=== PATIENT | female | born 1980 | race Hispanic/Latino ===

== ENCOUNTER 2018-01-20 17:30 | Emergency (ER) | payer BC, SELFPAY ==
--- OUTSIDE RECORDS SUMMARY | 2018-01-20 17:33 | XMS REPORT | Clinical Summary ---
:1980 Author Organization [facility] Address [address] [place] [address] Care Team Providers Name Role Phone Amanda Gonzalez MD Primary Care Provider Allergies Active Allergy Reactions Severity Noted Date Comments Adhesive Itching 04/30/2016 Skin turns red Adhesive Tape-Silicones Itching 01/23/2016 Skin turns red Cephalexin Itching 04/30/2016 Ciprofloxacin 01/22/2016 Tachycardia Duloxetine Hcl 05/14/2011 Serotonin syndrome Levofloxacin Palpitations High 01/22/2016 Tachycardia Tapentadol Itching 01/14/2015 Skin turns red Tolmetin Swelling 04/30/2016 Face and tongue Current Medications Prescription Sig. Disp. Refills Start End Status Date Date buPROPion XL Take 300 mg by Active (WELLBUTRIN XL) 300 mouth daily. MG 24 hr tablet escitalopram Take 20 mg by 0 Active (LEXAPRO) 20 MG mouth daily. 6 tablet L. RHAMNOSUS Take 1 tablet by Active GG/INULIN mouth daily. (CULTURELLE PROBIOTICS ORAL) traZODone (DESYREL) Take 100 mg by Active 100 MG tablet mouth 2 (two) times a day. mesalamine (LIALDA) Take 1,200 mg by Active 1.2 gram EC tablet mouth 4 (four) times a day. norethindrone-e.est Take 1 tablet by Active radiol-iron mouth daily. (LOESTRIN 24 FE) 1 mg-20 mcg (24)/75 mg (4) per tablet clonAZEPAM 0 Active (KlonoPIN) 0.5 MG 6 tablet mometasone 2 sprays into each 17 g 3 Active (NASONEX) 50 nostril daily. 7 mcg/actuation nasal spray albuterol (PROAIR Inhale 1-2 puffs 18 g 3 Active HFA,PROVENTIL every 6 (six) 7 HFA,VENTOLIN HFA) hours as needed 90 mcg/actuation for shortness of inhaler breath. gabapentin Take 1 tablet (600 90 tablet 11 Active (NEURONTIN) 600 mg mg total) by mouth 7 018 tabletIndications: 3 (three) times a Inflammatory day. polyarthritis, Enteropathic arthritis, Chronic midline low back pain without sciatica, Cervical radiculopathy, Encounter for monitoring azathioprine therapy, Ulcerative colitis with complication, unspecified location, Neuropathy, Vitamin D insufficiency, Weakness ADVAIR DISKUS INHALE ONE PUFF BY 60 each 0 Active 500-50 mcg/dose MOUTH TWICE A DAY 7 DISKUS cetirizine (ZyrTEC) TAKE ONE TABLET BY 30 tablet 0 Active 10 MG tablet MOUTH DAILY 8 hydrOXYzine TAKE ONE TABLET BY 30 tablet 0 Active (ATARAX) 25 MG MOUTH DAILY 8 tablet SIMPONI 50 mg/0.5 INJECT 1 PEN (50 1 Syringe 2 Active mL pen MG) SUBCUTANEOUSLY 8 injectorIndications EVERY 28 DAYS. : Inflammatory polyarthropathy, Enteropathic arthritis, Moderate chronic ulcerative colitis with complication, Acute bilateral low back pain with sciatica, sciatica laterality unspecified, Chronic low back pain with sciatica, sciatica laterality unspecified, unspecified back pain laterality baclofen (LIORESAL) TAKE 1 TABLET BY 90 tablet 0 Active 20 MG tablet MOUTH TWICE DAILY 8 cetirizine (ZyrTEC) Take 10 mg by Discontinued 10 MG tablet mouth daily. 017 dexlansoprazole Take 60 mg by Discontinued (DEXILANT) 60 mg mouth daily. [address] 1 patch on Discontinued (LIDODERM) 5 % the skin daily. 017 Remove & Discard patch within 12 hours or as directed by ondansetron 1 Discontinued (ZOFRAN) 8 MG 6 017 tablet hydrOXYzine 0 Discontinued (ATARAX) 25 MG 6 017 tablet dicyclomine 0 Discontinued (BENTYL) 10 MG 6 017 capsule azelastine 0.15 % 5 Discontinued (205.5 mcg) 6 017 spray,non-aerosol albuterol (ACCUNEB) Take 3 mL (0.63 mg 75 mL 12 0.63 mg/3 mL total) by 7 018 nebulizer solution nebulization every 6 (six) hours as needed for wheezing. fluticasone-salmete Inhale 1 puff 2 14 each 3 Discontinued rol (ADVAIR DISKUS) (two) times a day. 7 017 500-50 mcg/dose DISKUS gabapentin Take 2 capsules 60 capsule 0 Discontinued (NEURONTIN) 300 mg (600 mg total) by 7 017 capsuleIndications: mouth nightly. Ulcerative colitis with complication, unspecified location, Vitamin D insufficiency, Weakness, Encounter for monitoring azathioprine therapy, Inflammatory polyarthritis, Fibromyalgia baclofen (LIORESAL) Take 1 tablet (20 90 tablet 0 20 MG tablet mg total) by mouth 7 017 3 (three) times a day for 30 days. azaTHIOprine Take 3 tablets 90 tablet 0 Discontinued (IMURAN) 50 mg (150 mg total) by 7 017 tablet mouth daily for 30 days. predniSONE Take 1-2 tablets 60 tablet 0 (DELTASONE) 5 mg (5-10 mg total) by 7 017 tablet mouth daily as needed (joint pain) for up to 30 days. gabapentin TAKE TWO CAPSULES 60 capsule 0 Discontinued (NEURONTIN) 300 mg BY MOUTH EVERY 7 017 capsuleIndications: NIGHTLY Ulcerative colitis with complication, unspecified location, Vitamin D insufficiency, Weakness, Encounter for monitoring azathioprine therapy, Inflammatory polyarthritis, Fibromyalgia azaTHIOprine TAKE THREE TABLETS 90 tablet 0 (IMURAN) 50 mg BY MOUTH DAILY 7 017 tablet predniSONE TAKE ONE TO TWO 60 tablet 0 (DELTASONE) 5 mg TABLETS BY MOUTH 7 017 tablet EVERY DAY NEEDED FOR JOINT PAIN FOR UP TO 30 DAYS cetirizine (ZyrTEC) TAKE ONE TABLET BY 30 tablet 0 Discontinued 10 MG tablet MOUTH DAILY 017 ADVAIR DISKUS INHALE ONE PUFF BY 60 each 0 Discontinued 500-50 mcg/dose MOUTH TWICE A DAY DISKUS azaTHIOprine TAKE THREE TABLETS 30 tablet 0 Discontinued (IMURAN) 50 mg BY MOUTH DAILY 7 tablet gabapentin TAKE TWO CAPSULES 60 capsule 0 Discontinued (NEURONTIN) 300 mg BY MOUTH EVERY capsuleIndications: NIGHTLY Ulcerative colitis with complication, unspecified location, Vitamin D insufficiency, Weakness, Encounter for monitoring azathioprine therapy, Inflammatory polyarthritis, Fibromyalgia azaTHIOprine TAKE THREE TABLETS 90 tablet 0 Discontinued (IMURAN) 50 mg BY MOUTH DAILY tablet lidocaine Place 2 patches on 60 patch 0 Discontinued (LIDODERM) 5 % the skin daily for 30 days. Remove & Discard patch within 12 hours or as directed by gabapentin TAKE TWO CAPSULES 60 capsule 0 Discontinued (NEURONTIN) 300 mg BY MOUTH EVERY capsuleIndications: NIGHTLY Ulcerative colitis with complication, unspecified location, Vitamin D insufficiency, Weakness, Encounter for monitoring azathioprine therapy, Inflammatory polyarthritis, Fibromyalgia lidocaine 4 % Apply 1 patch 60 patch 2 Discontinued adhesive topically 2 (two) 017 patch,medicatedIndi times a day for 90 cations: days. Inflammatory polyarthritis, Enteropathic arthritis, Chronic midline low back pain without sciatica, Cervical radiculopathy, Encounter for monitoring azathioprine therapy, Ulcerative colitis with complication, unspecified location, Neuropathy, Vitamin D insufficiency, Weakness azaTHIOprine Take 3 tablets 90 tablet 2 Discontinued (IMURAN) 50 mg (150 mg total) by tabletIndications: mouth once daily Inflammatory for 30 days. polyarthritis, Enteropathic arthritis, Chronic midline low back pain without sciatica, Cervical radiculopathy, Encounter for monitoring azathioprine therapy, Ulcerative colitis with complication, unspecified location, Neuropathy, Vitamin D insufficiency, Weakness gabapentin Take 1 tablet (600 90 tablet 11 Discontinued (NEURONTIN) 600 mg mg total) by mouth 7 017 tabletIndications: 3 (three) times a Inflammatory day. polyarthritis, Enteropathic arthritis, Chronic midline low back pain without sciatica, Cervical radiculopathy, Encounter for monitoring azathioprine therapy, Ulcerative colitis with complication, unspecified location, Neuropathy, Vitamin D insufficiency, Weakness cycloSPORINE Administer 1 drop 0.4 mL 2 Discontinued (RESTASIS) 0.05 % to both eyes 2 7 017 ophthalmic (two) times a day emulsionIndications for 90 days. : Inflammatory polyarthritis, Enteropathic arthritis, Chronic midline low back pain without sciatica, Cervical radiculopathy, Encounter for monitoring azathioprine therapy, Ulcerative colitis with complication, unspecified location, Neuropathy, Vitamin D insufficiency, Weakness azaTHIOprine Take 3 tablets 90 tablet 2 (IMURAN) 50 mg (150 mg total) by 7 017 tabletIndications: mouth once daily Inflammatory for 30 days. polyarthritis, Enteropathic arthritis, Chronic midline low back pain without sciatica, Cervical radiculopathy, Encounter for monitoring azathioprine therapy, Ulcerative colitis with complication, unspecified location, Neuropathy, Vitamin D insufficiency, Weakness cycloSPORINE Administer 1 drop 0.4 mL 2 (RESTASIS) 0.05 % to both eyes 2 7 018 ophthalmic (two) times a day emulsionIndications for 90 days. : Inflammatory polyarthritis, Enteropathic arthritis, Chronic midline low back pain without sciatica, Cervical radiculopathy, Encounter for monitoring azathioprine therapy, Ulcerative colitis with complication, unspecified location, Neuropathy, Vitamin D insufficiency, Weakness lidocaine 4 % Apply 1 patch 60 patch 2 adhesive topically 2 (two) 7 018 patch,medicatedIndi times a day for 90 cations: days. Inflammatory polyarthritis, Enteropathic arthritis, Chronic midline low back pain without sciatica, Cervical radiculopathy, Encounter for monitoring azathioprine therapy, Ulcerative colitis with complication, unspecified location, Neuropathy, Vitamin D insufficiency, Weakness baclofen (LIORESAL) TAKE ONE TABLET BY 90 tablet 0 Discontinued 20 MG tablet MOUTH TWICE A DAY 7 018 golimumab (SIMPONI) Inject 50 mg under 0.5 mL 4 Discontinued 50 mg/0.5 mL pen the skin every 28 7 018 injectorIndications days. : Inflammatory polyarthropathy, Enteropathic arthritis, Moderate chronic ulcerative colitis with complication, Acute bilateral low back pain with sciatica, sciatica laterality unspecified, Chronic low back pain with sciatica, sciatica laterality unspecified, unspecified back pain laterality baclofen (LIORESAL) Take 1 tablet (20 90 tablet 0 20 MG tablet mg total) by mouth 7 017 3 (three) times a day for 30 days. predniSONE Take 1 tablet (10 90 tablet 0 (DELTASONE) 10 mg mg total) by mouth 7 017 tabletIndications: take as directed Inflammatory (4 tabs x 2 days, polyarthritis 3 tabs x 3 days, 2 tabs for 7days, 1 tab x 7days) for up to 19 days. hydrOXYzine Take 1 tablet (25 30 tablet 0 Discontinued (ATARAX) 25 MG mg total) by mouth 7 018 tablet daily. cetirizine (ZyrTEC) Take 1 tablet (10 30 tablet 0 Discontinued 10 MG tablet mg total) by mouth 7 018 once daily. predniSONE Take 1-1.5 tablets 45 tablet 0 Discontinued (DELTASONE) 10 mg (10-15 mg total) 7 018 tablet by mouth daily for 30 days. cetirizine (ZyrTEC) Take 1 tablet (10 30 tablet 0 Discontinued 10 MG tablet mg total) by mouth 8 018 once daily. hydrOXYzine Take 1 tablet (25 30 tablet 0 Discontinued (ATARAX) 25 MG mg total) by mouth 8 018 tablet daily. predniSONE TAKE 1 TO 1.5 45 tablet 0 Discontinued (DELTASONE) 10 mg TABLETS BY MOUTH 8 018 tablet DAILY predniSONE TAKE 1 TO 1.5 45 tablet 0 (DELTASONE) 10 mg TABLETS BY MOUTH 8 018 tablet DAILY baclofen (LIORESAL) TAKE ONE TABLET BY 90 tablet 0 Discontinued 20 MG tablet MOUTH TWICE A DAY 8 018 Hospital, Clinic, or Other Ordered Dose Route Frequency Start Date End Date Status Facility Administered Medication methylPREDNISolone acetate 80 mg IM once 06/11/2017 06/11/2017 Ended (DEPO-MEDROL) injection 80 mgIndications: Polyarthritis methylPREDNISolone acetate 80 mg IM once 07/30/2017 07/29/2017 Ended (DEPO-MEDROL) injection 80 mgIndications: Inflammatory polyarthropathy 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 Neuropathy 04/22/2017 RILEY (obstructive sleep apnea) 04/01/2017 Asthma dependent on inhaled steroids 04/01/2017 Chronic obstructive asthma with acute exacerbation 10/01/2016 Cough 10/01/2016 Allergic rhinitis due to pollen 10/01/2016 Inflammatory polyarthritis 08/30/2016 Fibromyalgia 08/30/2016 Encounter for monitoring azathioprine therapy 06/07/2016 Vitamin D insufficiency 05/01/2016 Myalgia 05/01/2016 Chronic midline low back pain without sciatica 05/01/2016 Ulcerative colitis with complication 04/28/2016 History of endometriosis 04/28/2016 IBS (irritable bowel syndrome) 04/28/2016 Abdominal pain 04/28/2016 Weakness 04/28/2016 Anxiety 04/28/2016 Gastroparesis 04/17/2016 Tendonitis of elbow, right 03/29/2016 Cervical radiculopathy 03/29/2016 Gastroesophageal reflux disease without esophagitis 02/22/2016 Intractable vomiting with nausea 01/22/2016 Sprain of right knee/leg 01/03/2016 Encounters Date Type Specialty Care Team Description 12/30/2017 Telephone Internal Medicine Amanda Gonzalez MD 10/21/2017 Orders Only Rheumatology Monica, Encounter for therapeutic drug level monitoring (Primary Dx); LOVE Sy Inflammatory polyarthropathy; Moderate chronic ulcerative colitis with complication; Weakness; Vitamin D insufficiency; Encounter for long-term (current) use of high-risk medication 10/16/2017 Telephone Pulmonology Odessa Lewis 10/02/2017 Refill Rheumatology Mary Mtz MD 09/30/2017 Refill Rheumatology Mary Mtz, [place] polyarthropathy; Enteropathic arthritis; Moderate chronic ulcerative colitis with complication; Acute bilateral low back pain with sciatica, sciatica laterality unspecified; Chronic low back pain with sciatica, sciatica laterality unspecified, unspecified back pain laterality 09/26/2017 Refill Rheumatology Mary Mtz MD 09/24/2017 Refill Rheumatology Mary Mtz MD 09/11/2017 Telephone Sleep Medicine Odessa Lewis 09/11/2017 Orders Only Pulmonology Oscar RILEY (obstructive sleep [place], [place] apnea) (Primary Dx) 08/14/2017 Refill Rheumatology Mary Mtz MD 08/14/2017 Refill Pulmonology Annabella Liu MD 08/13/2017 Refill Rheumatology Mary Mtz MD 07/29/2017 Clinical Support Rheumatology Mary Mtz MD 07/29/2017 Orders Only Rheumatology Awais Murguia MA polyarthropathy (Primary Dx) 07/20/2017 Refill Rheumatology Mary Mtz MD 07/19/2017 Refill Rheumatology Mary Mtz MD 07/01/2017 Orders Only Pulmonology Calista Yeung MA 06/11/2017 Clinical Support Rheumatology Amanda Gonzalez MD 06/11/2017 Orders Only Rheumatology Jolynn, Polyarthritis (Primary [place], [place] Dx) 06/11/2017 Orders Only Rheumatology Mary Mtz, Ulcerative colitis with complication, unspecified location (Primary Dx); Inflammatory polyarthritis 06/11/2017 Telephone Endocrinology Susana Hoang MA 06/11/2017 Telephone Internal Medicine Cherelle Bunn RN 05/21/2017 Telephone Internal Medicine Amanda Gonzalez MD 05/13/2017 Refill Rheumatology Mary Mtz MD 05/11/2017 Orders Only Rheumatology Mary Mtz Inflammatory MD polyarthritis (Primary Dx) 05/08/2017 Telephone Internal Medicine Amanda Gonzalez MD 05/03/2017 Orders Only Rheumatology Mary Mtz, Ulcerative colitis with complication, unspecified location; Vitamin D insufficiency; Weakness; Encounter for monitoring azathioprine therapy; Inflammatory polyarthritis; Fibromyalgia 05/01/2017 Refill Rheumatology Kerrie Anderson MA 05/01/2017 Refill Rheumatology Monica, Inflammatory polyarthropathy ( Primary Dx); LOVE Sy Enteropathic arthritis; Moderate chronic ulcerative colitis with complication; Acute bilateral low back pain with sciatica, sciatica laterality unspecified; Chronic low back pain with sciatica, sciatica laterality unspecified, unspecified back pain laterality 04/30/2017 Clinical Support Sleep Medicine Asked, No Pcp RILEY (obstructive sleep apnea) 04/30/2017 Refill Rheumatology Mary Mtz Inflammatory polyarthritis; Enteropathic arthritis; Chronic midline low back pain without sciatica; Cervical radiculopathy; Encounter for monitoring azathioprine therapy; Ulcerative colitis with complication, unspecified location; Neuropathy; Vitamin D insufficiency; Weakness 04/30/2017 Refill Rheumatology Mary Mtz MD 04/25/2017 Refill Rheumatology Mary Mtz MD 04/24/2017 Clinical Support Sleep Medicine RILEY (obstructive sleep apnea) 04/24/2017 Refill Pulmonology Annabella Liu MD 04/23/2017 Refill Rheumatology Monica Inflammatory polyarthritis; LOVE Sy Enteropathic arthritis; Chronic midline low back pain without sciatica; Cervical radiculopathy; Encounter for monitoring azathioprine therapy; Ulcerative colitis with complication, unspecified location; Neuropathy; Vitamin D insufficiency; Weakness 04/23/2017 Orders Only Rheumatology Kerrie Anderson MA 04/22/2017 Office Visit Rheumatology Mary Mtz, Inflammatory polyarthritis (Primary Dx); Enteropathic arthritis; Myalgia; Chronic midline low back pain without sciatica; Cervical radiculopathy; Encounter for monitoring azathioprine therapy; Fibromyalgia; Ulcerative colitis with complication, unspecified location; Neuropathy; Vitamin D insufficiency; Weakness 04/15/2017 Refill Rheumatology Mary Mtz Ulcerative colitis with complication, unspecified location; Vitamin D insufficiency; Weakness; Encounter for monitoring azathioprine therapy; Inflammatory polyarthritis; Fibromyalgia 04/04/2017 Orders Only Rheumatology Mary Mtz Inflammatory polyarthritis (Primary Dx); Tendonitis of elbow, right; Encounter for monitoring azathioprine therapy 04/04/2017 Refill Rheumatology Mary Mtz MD 04/01/2017 Office Visit Pulmonology Noe, Gastroesophageal reflux disease without esophagitis (Primary Dx); MD Annabella Allergic rhinitis due to pollen, unspecified chronicity, unspecified seasonality; Cough; Asthma dependent on inhaled steroids; RILEY (obstructive sleep apnea) 03/20/2017 Refill Rheumatology Mary Mtz, Ulcerative colitis with complication, unspecified location; Vitamin D insufficiency; Weakness; Encounter for monitoring azathioprine therapy; Inflammatory polyarthritis; Fibromyalgia 03/20/2017 Refill Pulmonology Annabella Liu MD 03/19/2017 Orders Only Orthopedic Surgery Jessi Henry LPN 03/15/2017 Refill Internal Medicine Amanda Gonzalez MD 03/15/2017 Refill Rheumatology Mary Mtz MD 02/06/2017 Refill Rheumatology Mary Mtz, Ulcerative colitis with complication, unspecified location; Vitamin D insufficiency; Weakness; Encounter for monitoring azathioprine therapy; Inflammatory polyarthritis; Fibromyalgia after 01/19/2017 Immunizations Name Dates Previously Given Next Due INFLUENZA QUAD PF 04/17/2016 Family History Medical History Relation Name Comments Alcohol abuse Brother Jeronimo Depression Brother Jeronimo Irritable bowel syndrome Brother Jeronimo Learning disabilities Brother Jeronimo ADD Mental illness Brother Jeronimo anxiety Mental illness Brother Dave anxiety Alcohol abuse Father Norberto Hypertension Father Norberto Diabetes Maternal Grandfather Mahnaz type 2 Heart disease Maternal Grandfather Mahnaz Hypertension Maternal Grandfather Mahnaz Parks's esophagus Maternal Grandmother Bates Sharla Cancer Maternal Grandmother Bates [place] liver cancer GERD Maternal Grandmother Bates Sharla Liver cancer Maternal Grandmother Bates [place] Ulcerative colitis Maternal Grandmother Bates Sharla Arthritis Mother Kiarra Vision loss Mother Kiarra Psuedo-tumor cerebri Alcohol abuse Sister Ena Depression Sister Ena Irritable bowel syndrome Sister Ena Learning disabilities Sister Ena ADD Mental illness Sister Ena PTSD, anxiety Relation Name Status Comments Brother Jeronimo Brother Dave Father Norberto Maternal Grandfather Mahnaz Maternal Grandmother Bates Sharla Mother Kiarra Sister Ena Social History Tobacco Use Types Packs/Day Years Used Date Never Smoker Alcohol Use Drinks/Week oz/Week Comments Yes 1 Standard drinks or equivalent On occasion Sex Assigned at Date Recorded Not on file Last Filed Vital Signs Vital Sign Reading Time Taken Blood Pressure 127/79 04/22/2017 1:15 PM CDT Pulse 102 04/22/2017 1:15 PM CDT Temperature 37.3 C (99.2 F) 04/22/2017 1:15 PM CDT Respiratory Rate 14 04/01/2017 10:41 AM CDT Oxygen Saturation 98% 04/01/2017 10:41 AM CDT Inhaled Oxygen Concentration - - Weight 141 kg (310 lb) 05/01/2017 5:26 AM [employer]AND [employer] OPERATOR Height 172.7 cm (5' 8") 05/01/2017 5:26 AM BAND [employer] OPERATOR Body Mass Index 47.14 05/01/2017 5:26 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 POLYSOMNOGRAPHY 4 OR Routine 05/13/2017 1:26 RILEY (obstructive Results for this MORE PARAMETERS AM BAND SAWMILL OPERATOR sleep apnea) procedure are in the results section. TB GOLD QUANTIFERON Routine 04/22/2017 2:27 Inflammatory Results for this PM CDT polyarthritis procedure are in Enteropathic the results arthritis section. Chronic midline low back pain without sciatica Cervical radiculopathy Encounter for monitoring azathioprine therapy Ulcerative colitis with complication, unspecified location Neuropathy Vitamin D insufficiency Weakness HLA-B27 ANTIGEN Routine 04/22/2017 2:27 Inflammatory Results for this PM CDT polyarthritis procedure are in Enteropathic the results arthritis section. Chronic midline low back pain without sciatica Cervical radiculopathy Encounter for monitoring azathioprine therapy Ulcerative colitis with complication, unspecified location Neuropathy Vitamin D insufficiency Weakness VITAMIN D 25 HYDROXY Routine 04/22/2017 2:27 Inflammatory Results for this LEVEL PM CDT polyarthritis procedure are in Enteropathic the results arthritis section. Chronic midline low back pain without sciatica Cervical radiculopathy Encounter for monitoring azathioprine therapy Ulcerative colitis with complication, unspecified location Neuropathy Vitamin D insufficiency Weakness URINALYSIS, AUTOMATED Routine 04/22/2017 2:27 Inflammatory Results for this WITH MICROSCOPY PM CDT polyarthritis procedure are in Enteropathic the results arthritis section. Chronic midline low back pain without sciatica Cervical radiculopathy Encounter for monitoring azathioprine therapy Ulcerative colitis with complication, unspecified location Neuropathy Vitamin D insufficiency Weakness URIC ACID LEVEL Routine 04/22/2017 2:27 Inflammatory Results for this PM CDT polyarthritis procedure are in Enteropathic the results arthritis section. Chronic midline low back pain without sciatica Cervical radiculopathy Encounter for monitoring azathioprine therapy Ulcerative colitis with complication, unspecified location Neuropathy Vitamin D insufficiency Weakness T4, FREE Routine 04/22/2017 2:27 Inflammatory Results for this PM CDT polyarthritis procedure are in Enteropathic the results arthritis section. Chronic midline low back pain without sciatica Cervical radiculopathy Encounter for monitoring azathioprine therapy Ulcerative colitis with complication, unspecified location Neuropathy Vitamin D insufficiency Weakness THYROID STIMULATING Routine 04/22/2017 2:27 Inflammatory Results for this HORMONE PM CDT polyarthritis procedure are in Enteropathic the results arthritis section. Chronic midline low back pain without sciatica Cervical radiculopathy Encounter for monitoring azathioprine therapy Ulcerative colitis with complication, unspecified location Neuropathy Vitamin D insufficiency Weakness C-REACTIVE PROTEIN Routine 04/22/2017 2:27 Inflammatory Results for this PM CDT polyarthritis procedure are in Enteropathic the results arthritis section. Chronic midline low back pain without sciatica Cervical radiculopathy Encounter for monitoring azathioprine therapy Ulcerative colitis with complication, unspecified location Neuropathy Vitamin D insufficiency Weakness SEDIMENTATION RATE Routine 04/22/2017 2:27 Inflammatory Results for this PM CDT polyarthritis procedure are in Enteropathic the results arthritis section. Chronic midline low back pain without sciatica Cervical radiculopathy Encounter for monitoring azathioprine therapy Ulcerative colitis with complication, unspecified location Neuropathy Vitamin D insufficiency Weakness COMPREHENSIVE METABOLIC Routine 04/22/2017 2:27 Inflammatory Results for this PANEL PM CDT polyarthritis procedure are in Enteropathic the results arthritis section. Chronic midline low back pain without sciatica Cervical radiculopathy Encounter for monitoring azathioprine therapy Ulcerative colitis with complication, unspecified location Neuropathy Vitamin D insufficiency Weakness CBC WITH PLATELET AND Routine 04/22/2017 2:27 Inflammatory Results for this DIFFERENTIAL PM CDT polyarthritis procedure are in Enteropathic the results arthritis section. Chronic midline low back pain without sciatica Cervical radiculopathy Encounter for monitoring azathioprine therapy Ulcerative colitis with complication, unspecified location Neuropathy Vitamin D insufficiency Weakness after 01/19/2017 Results Polysomnography 4 or more parameters with CPAP (05/13/2017 1:28 AM) Narrative Performed At [facility] [address] [facility], [address], [place] [address] Office: [phone] Accredited by [employer] CPAP TITRATION REPORT I. Patient information Name:EMILIA LORA Age:36 years Sex:Male Height:5' 8" in. Weight:310.0 lbs. BMI:47.5 Referring Physician: Dr. Liu Evaluation: Polysomnogram with CPAP on 04/30/2017 Study #: [id number] II.History of Illness This is a 36 years old Male with a previously diagnosed mild obstructive sleep apnea syndrome with hypoxemia, returns to sleep center for CPAP titration. III.Methodology The patient underwent a second-night polysomnogram, which consisted of the following recording technique: Six channels of EEG (two frontal, two central, and two occipital) were monitored and electrodes placed according to the international 10-20 system. Electrodes placed at the outer canthi and the chin respectively monitored EOG and EMG continuously. Nasal and oral airflow was monitored using a tripl e port thermistor along with nasal pressure transducer flow along with thoracic and abdominal effort were measured by Respiratory Inductive Plethosmography belt technology. Blood oxygen saturation was m onitored by pulse oximetry. Heart rate and rhythm were monitored by surface electrocardiogram. Anterior tibialis EMG was studied by using surface electrodes placed 5cm apart on both legs. Nasal CPAP / Bi-Level machine was used for titration. IV.Polysomnographic Results The Sleep Study was performed using Comprehensive Polysomnography with nasal CPAP (CPT 40397). The patient was initially desensitized to CPAP for 30 minutes varying the pressures from 4cm/H20 to 10 cm/H20. After the electrodes were attached, CPAP was started at the onset of the recording at a low pressure of 5cm/H20 and gradually increased up to 10cm/H2O to eliminate the respiratory disturbances and arousals during sleep. A pressure of 10 cm/H20 was most effective in eliminating the patient's a pneas, hypopneas, snoring and oxygen desaturations. The baseline oxygen saturation was 93.9% with a low SaO2 of 84.0% prior to adequate CPAP pressure. The SaO2 was 100.0% after CPAP titration. The average heart rate was 80.7 BPM with a minimum heart rate of 63.9 and maximum heart of 106.7 during the study. No arrhythmias were detected during the study. There were no significant PLMS (Periodic Limb Movements) noticed during CPAP trial. The sleep latency was 2.9 minutes with a sleep efficiency of 97.8%. The REM latency was 228.5. There were 81 arousals from sleep with an arousal index of 12.4. The sleep stage distribution was as follows: Stage Awake 2.1%, Stage N1 0.1%, Stage N2 34.0%, Stage N3 46.8%, Stage REM 16.9%. (Normative values: Stage 1 2-7% , Stage 2 45-65%, Stage 3 10-15%, Stage REM 15-20%). There were significant delta sleep rebound noticed during CPAP trial. TOTAL STUDY TIME: 6.7 hrs., TOTAL SLEEP TIME: 6.6 hrs. V. Diagnosis "Mild Obstructive Sleep Apnea/Hypopnea Syndrome more prominent during REM sleep (REM AHI=17.8)(Total AHI=8.5 ) with Hypoxemia (Low Sat=85.1%) (ICD10- G47.33, R09.02). "Note: The sleep apneas, hypopneas, snoring, PLMS and oxygen desaturations have been corrected by nasal CPAP. . Recommendation "Treatment with nasal CPAP (Resmed AirSense 10) at a pressure of 10cm/H2O with Resmed Medium size "[id number]" Full Face Mask, C-Flex-3, Ramp 30 minutes with advanced download features with memory card a nd a heated humidifier during sleep. Please add this patient in [facility] patient management system. "Weight reduction is recommended to ideal body weight. "Avoid taking alcohol, sedatives a few hours prior to sleep. "Exercise good sleep hygiene. "The patient should be aware that excessive daytime sleepiness could pose a danger while driving and should use caution until these symptoms are treated. Electronically signed by Annabella Liu M.D., Diplomate, [place] [employer]. Polysomnography 4 or more parameters (05/13/2017 1:26 AM) Narrative Performed At [facility] [address], [address], [place] [address] Office: [phone] Accredited by [place] [employer] DIAGNOSTIC SLEEP STUDY REPORT I. Patient information Name:EMILIA LORA Age:36 years Sex:Male Height:5' 8" in. Weight:309.6 lbs. BMI:47.5 Referring Physician: Dr. Liu Evaluation: Polysomnogram on 04/24/2017 Study #: [id number] II. History of Illness This is a 36 years old male who complains of snoring, excessive daytime sleepiness, restless and disturbed sleep, falling asleep at inappropriate times , waking up gasping for air, waking up with dry curt th, nasal blockage difficulty initiating and maintaining sleep, getting too little sleep and poor quality sleep; in whom there is a concern of Obstructive Sleep Apnea. This study is to evaluate for the presence and severity of obstructive respirations during sleep. [place] Scale score was 23. (A score higher than 10 suggests that there is a chance of patient dozing off during normal daytime activity. Example: driving). The patient goes to bed between 11:00 pm and mid night and usually falls asleep in 10 minutes. He awakens several times during the night for restroom use or due to chocking sensations or unknown reasons . The patient awakens each day around 7:00 am and around 8:00 am on weekends. III. Methodology The patient underwent a diagnostic polysomnogram (CPT 03772), which consisted of the following recording technique: Six channels of EEG (two frontal, two central, and two occipital) were monitored and e lectrodes placed according to the international 10-20 system. Electrodes placed at the outer canthi and the chin respectively monitored EOG and EMG continuously. Nasal and oral airflow was monitored usi ng a triple port thermistor along with nasal pressure transducer flow along with thoracic and abdominal effort were measured by Respiratory Inductive Plethosmography belt technology. Blood oxygen satura tion was monitored by pulse oximetry. Heart rate and rhythm were monitored by surface electrocardiogram. Anterior tibialis EMG was studied by using surface electrodes placed 5cm apart on both legs. IV. Polysomnographic Results The patient's sleep was disturbed with sleep disordered breathing and frequent arousals. There were 46 apneas and 14 hypopneas with an apnea/hypopnea index of 8.5. These apneas and hypopneas were 100% o bstructive events and more prominent during REM sleep (REM AHI=17.8). The patient demonstrated mild to moderate intermittent snoring during the study. There were 130 arousals resulting in an arousal index of 18.3. There were 52 arousals related to Respiratory Effort Related Events resulting in a RERA index of 7.3 with a Respiratory Disturbance Index of (RDI=15.8). The baseline oxygen saturation was 94.6% with a low SaO2 of 85.1%. The patient' s oxygen saturation dropped down to 88.9% in association with some of these obstructive respiratory events in REM sleep and while in non-REM sleep the SaO2 dropped down as low as 85.1%. The patient had 27 desaturation events during the study. The average heart rate was 70.6 BPM with a minimum heart rate of 58.9 and maximum heart of 101.6 during the study. No arrhythmias were detected during the study. The sleep latency was 4.2 minutes with a sleep efficiency of 98.7%. The REM latency was 169.0. There were 130 arousals from sleep with an arousal index of 18.3. The sleep stage distribution was as follows: Stage Awake 1.5%, Stage N1 1.2%, Stage N2 62.2%, Stage N3 17.4%, Stage REM 18.0%. (Normative values: Stage 1 2-7% , Stage 2 45-65%, Stage 3/4 10-15%, Stage REM 15-20%). There were no significant PLMS (Periodic Limb Movements) noticed during the study. TOTAL STUDY TIME: 7.2 hrs., TOTAL SLEEP TIME: 7.1 hrs. V. Diagnosis "Mild Obstructive Sleep Apnea/Hypopnea Syndrome more prominent during REM sleep (REM AHI=17.8) (Total AHI=8.5) with Hypoxemia (Low Sat-85.1%). (ICD10- G47.33, R09.02) Note: The patient's obstructive respirations clearly fragmented the sleep continuity and treatment is clearly indicated. CPAP should be considered and this would require a CPAP titration study to determ ine the optimal pressure treating this patient's obstructive respirations. . Recommendation "All night sleep study for CPAP/BiPAP titration (CPT-78586) "Weight reduction is recommended to ideal body weight. "Avoid taking alcohol, sedatives a few hours prior to sleep. "Exercise good sleep hygiene. "The patient should be aware that excessive daytime sleepiness could pose a danger while driving and should use caution until these symptoms are treated. Electronically signed by Annabella Liu M.D., Diplomate, [place] [employer]. TB GOLD Quantiferon (04/22/2017 2:27 PM) Quantiferon TB gold NEGATIVE NEGATIVE [facility] Comment: [place] Negative test result. M. tuberculosis complex infection unlikely. Quantiferon NIL value 0.09 IU/mL [facility] [place] Quantiferon mitogen NIL >10.00 IU/mL [facility] value [place] Quantiferon TB NIL value 0.00 IU/mL [facility] Comment: [place] The Nil tube value is used to determine if the patient has a preexisting immune response which could cause a false-positive reading on the test. In order for a test to be valid, the Nil tube must have a value of less than or equal to 8.0 IU/mL. The mitogen control tube is used to assure the patient has a healthy immune status and also serves as a control for correct blood handling and incubation. It is used to detect false-negative readings. The mitogen tube must have a gamma interferon value of greater than or equal to 0.5 IU/mL higher than the value of the Nil tube. The TB antigen tube is coated with the M. tuberculosis specific antigens. For a test to be considered positive, the TB antigen tube value minus the Nil tube value must be greater than or equal to 0.35 IU/mL. For additional information, please refer to http://education.Balanced/faq/QFT (This link is being provided for informational/ educational purposes only.) Specimen Blood Narrative Performed At FASTING:NO Amind Resulting Agency Comment Performing Organization Information: Site ID: [id number] Name: [facility] Address: [address] [place] [phone] Director: Alexia Lee MD Performing Organization Address City/State/[facility] Services[facility] Phone Number [facility] [address] [address] HLA-B27 antigen (04/22/2017 2:27 PM) HLA B27 NEGATIVE NEGATIVE Am[facility] Specimen Blood Narrative Performed At FASTING:NO [facility] Resulting Agency Comment Performing Organization Information: Site ID: [id number] [facility]: [facility] Address: [address] [place] [address] Director: Dr. Aditya Verma Performing Organization Address City/State/Zipcode Phone Number [facility] [address] [place] [address] Vitamin D 25 hydroxy level (04/22/2017 2:27 PM) Vitamin D, 25-hydroxy 28 (L) 30 - 100 ng/mL [facility] Comment: [place] Vitamin D Status 25-OH Vitamin D: Deficiency:<20 ng/mL Insufficiency: 20 - 29 ng/mL Optimal: > or=30 ng/mL For 25-OH Vitamin D testing on patients on D2-supplementation and patients for whom quantitation of D2 and D3 fractions is required, the [facility](TM) 25-OH VIT D, (D2,D3), LC/MS/MS is recommended: order code 33599 (patients >2yrs). For more information on this test, go to: http://education.Balanced/faq/ZRL968 (This link is being provided for informational/educational purposes only.) Specimen Blood Narrative Performed At FASTING:NO [facility] Resulting Agency Comment Performing Organization Information: Site ID: RGA Name: [facility] Address: [address] [place] [phone] Director: Alexia Lee MD Performing Organization Address [facility]/Zipcode Phone Number [facility] [address] [address] Urinalysis, automated with microscopy (04/22/2017 2:27 PM) Color, UA YELLOW YELLOW [facility] [place] Appearance CLEAR CLEAR [facility] [place] Specific gravity, urine 1.022 1.001 - 1.035 [facility] [place] pH, urine 6.0 5.0 - 8.0 [facility] [place] Glucose, urine NEGATIVE NEGATIVE [facility] [place] Bilirubin, UA NEGATIVE NEGATIVE [facility] [place] Ketones, UA NEGATIVE NEGATIVE [facility] [place] Occult blood, urine NEGATIVE NEGATIVE [facility] [place] Protein, UA NEGATIVE NEGATIVE [facility] [place] Nitrite, UA NEGATIVE NEGATIVE [facility] [place] Leukocyte esterase, UA NEGATIVE NEGATIVE [facility] [place] WBC, UA NONE SEEN < OR=5 /HPF [facility] [place] RBC, UA 0-2 < OR=2 /HPF [facility] [place] Squamous epithelial cells, UA NONE SEEN < OR=5 /HPF [facility] [place] Bacteria, UA NONE SEEN NONE SEEN /HPF [facility] [place] Hyaline casts, UA NONE SEEN NONE SEEN /LPF [facility] [place] Specimen Urine Narrative Performed At FASTING:NO [facility] Resulting Agency Comment Performing Organization Information: Site ID: [id number] Name: [facility] Address: [address] [place] [phone] Director: Alexia Lee MD Performing Organization Address [facility] Servicescode Phone Number [place] [facility] [address] [address] Sedimentation rate (04/22/2017 2:27 PM) Sedimentation rate 9 < OR=20 mm/h [facility] [place] Specimen Blood Narrative Performed At FASTING:NO [facility] Resulting Agency Comment Performing Organization Information: Site ID: [facility] Name: [facility] Address: [address] [place] [phone] Director: Alexia Lee MD Performing Organization Address [facility] Servicescode Phone Number [place] [facility] [address] [address] CBC with platelet and differential (04/22/2017 2:27 PM) WBC 9.6 3.8 - 10.8 Thousand/uL [facility] [place] RBC 4.70 3.80 - 5.10 Million/uL [facility] [place] HGB 14.5 11.7 - 15.5 g/dL [facility] [place] HCT 42.5 35.0 - 45.0 % [facility] [place] MCV 90.4 80.0 - 100.0 fL [facility] [place] MCH 30.9 27.0 - 33.0 pg [facility] [place] MCHC 34.1 32.0 - 36.0 g/dL [facility] [place] RDW 13.0 11.0 - 15.0 % [facility] [place] Platelet count 331 140 - 400 Thousand/uL [facility] [place] MPV 9.1 7.5 - 12.5 fL [facility] [place] Neutrophils, absolute 6,557 1,500 - 7,800 cells/uL [facility] [place] Lymphocytes, absolute 2,294 850 - 3,900 cells/uL [facility] [place] Monocytes, absolute 614 200 - 950 cells/uL [facility] [place] Eosinophils, absolute 86 15 - 500 cells/uL [facility] [place] Basophils, absolute 48 0 - 200 cells/uL [facility] [place] Neutrophils 68.3 % [facility] [place] Lymphocytes 23.9 % [facility] [place] Monocytes 6.4 % [facility] [place] Eosinophils 0.9 % [facility] [place] Basophils + RC 0.5 % [facility] [place] Specimen Blood Narrative Performed At FASTING:NO [facility] Resulting Agency Comment Performing Organization Information: Site ID: FROILAN Name: [facility] Address: [address] [place] [address] Director: Alexia Lee MD Performing Organization Address [facility] Servicescode Phone [place] [address] C-reactive protein (04/22/2017 2:27 PM) CRP 29.6 (H) <8.0 mg/L [facility] [place] Specimen Blood Narrative Performed At FASTING:NO [facility] Resulting Agency Comment Performing Organization Information: Site ID: FROILAN Name: [facility] Address: [address] [place] [phone] Director: Alexia Lee MD Performing Organization Address [facility] [place] [address] Uric acid level (04/22/2017 2:27 PM) Uric acid 4.0 2.5 - 7.0 mg/dL [facility] [place] Comment: Therapeutic target for gout patients: <6.0 mg/dL Specimen Blood Narrative Performed At FASTING:NO [facility] Resulting Agency Comment Performing Organization Information: Site ID: RICKA Name: [facility] Address: [address] [place] [phone] Director: Alexia Lee MD Performing Organization Address [facility] [place] [address] Thyroid stimulating hormone (04/22/2017 2:27 PM) TSH 2.10 mIU/L [facility] [place] Comment: Reference Range > or=20 Years0.40-4.50 Ranges First trimester0.26-2.66 Second trimester 0.55-2.73 Third trimester0.43-2.91 Specimen Blood Narrative Performed At FASTING:NO [facility] Resulting Agency Comment Performing Organization Information: Site ID: RGA Name: [facility] Address: [address] [place] [phone] Director: Alexia Lee MD Performing Organization Address [facility]/Zipcode Phone Number [facility] [place] [phone] T4, free (04/22/2017 2:27 PM) T4, free 1.1 0.8 - 1.8 ng/dL [facility] [place] Specimen Blood Narrative Performed At FASTING:NO [facility] Resulting Agency Comment Performing Organization Information: Site ID: RGA [facility]: [facility] Address: [address] [place] [phone] Director: Alexia Lee MD Performing Organization Address [facility] Servicescode Phone [place] [address] Comprehensive metabolic panel (04/22/2017 2:27 PM) Glucose 89 65 - 99 mg/dL [facility] Comment: [place] Fasting reference interval BUN, whole blood 23 7 - 25 mg/dL [facility] [place] Creatinine 1.08 0.50 - 1.10 mg/dL [facility] [place] EGFR Non-Afr. [place] 66 > OR=60 [facility] mL/min/1.73m2 [place] EGFR 76 > OR=60 [facility] mL/min/1.73m2 [place] BUN/creatinine ratio NOT APPLICABLE 6 - 22 (calc) [facility] [place] Sodium 140 135 - 146 mmol/L [facility] [place] Potassium 4.4 3.5 - 5.3 mmol/L [facility] [place] Chloride 103 98 - 110 mmol/L [facility] [place] CO2 28 20 - 31 mmol/L [facility] [place] Calcium 9.3 8.6 - 10.2 mg/dL [facility] [place] Protein 7.4 6.1 - 8.1 g/dL [facility] [place] Albumin, S 4.3 3.6 - 5.1 g/dL [facility] [place] Globulin, total 3.1 1.9 - 3.7 g/dL [facility] (calc) [place] Albumin/globulin ratio 1.4 1.0 - 2.5 (calc) [facility] [place] Total bilirubin 0.3 0.2 - 1.2 mg/dL [facility] [place] Alkaline phosphatase 67 33 - 115 U/L [facility] [place] AST 10 10 - 30 U/L [facility] [place] ALT 9 6 - 29 U/L [facility] [place] Specimen Blood Narrative Performed At FASTING:NO [facility] Resulting Agency Comment Performing Organization Information: Site ID: RGA [facility]: [facility] Address: [address] [place] [address] Director: Alexia Lee MD Performing Organization Address City/State/Zipcode Phone Number [place] [facility] [place] [address] [place] [address] after 01/19/2017 Insurance Payer Benefit Plan / Group Subscriber ID Type Phone Address BCBS BCBS CHOICE PPO/FEDERAL EMPL PPO xxxxxxxxxxxx PPO
--- OUTSIDE RECORDS SUMMARY | 2018-01-20 17:33 | XMS REPORT | Clinical Summary ---
:1980 Author Organization [facility] Address [address] [place] [address] Phone Care Team Providers Name Role Phone Unavailable Primary Care Provider Unavailable Allergies No Known Allergies Current Medications Prescription Sig. Disp. Refills Start Date End Date Status norethindrone-ethinyl Take 1 tablet by Active estradiol (MICROGESTIN mouth daily. 07/13) 1-20 mg-mcg per tablet dexlansoprazole 60 mg Take 60 mg by Active capsule mouth daily. buPROPion HCl 450 mg Tb24 Take 450 mg by Active mouth daily. albuterol HFA (VENTOLIN Inhale 1 puff by Active HFA) 90 mcg/actuation mouth via inhaler inhaler every 6 (six) hours as needed for Wheezing. fluticasone-salmeterol Inhale 1 puff by Active (ADVAIR) 100-50 mcg/dose mouth via inhaler diskus inhaler every 12 (twelve) hours. traZODone (DESYREL) 100 MG Take 200 mg by Active tablet mouth nightly. nitrofurantoin, Take 100 mg by Active macrocrystal-monohydrate, mouth 2 (two) (MACROBID) 100 MG capsule times daily. Active Problems Not on file Social History Tobacco Use Types Packs/Day Years Used Date Unknown If Ever Smoked Alcohol Use Drinks/Week oz/Week Comments No Sex Assigned at Date Recorded Not on file Last Filed Vital Signs Not on file Plan of Treatment Not on file Results Not on fileafter 01/19/2017
[2018-01-20 20:02] LABS: Urine Blood TRACE (NEG); Urine Glucose NEGATIVE (NEG); Urine Protein NEGATIVE (NEG)
[2018-01-20 20:04] LABS: Urine Bacteria <20 /HPF (<20); Urine Culture Reflex Order NOT NEEDED; Urine RBC <5 /HPF (NONE SEEN)
[2018-01-20 20:05] LABS: Urine Mucus SLIGHT /HPF (NONE SEEN)
[2018-01-20] MEDS ORDERED: NA CHLORIDE 0.9% 500 ML ONE (20:22)
[2018-01-20] MEDS ORDERED: CEFTRIAXONE 1000 MG/VIAL ONE ×2 (20:22→21:01)
[2018-01-20] MEDS ORDERED: MORPHINE 4 MG/ML SYR ONE ×2 (20:22→21:00)
[2018-01-20] MEDS ORDERED: ONDANSETRON 4 MG/2 ML VIAL ONE (20:22)
[2018-01-20 20:51] LABS: Absolute Lymphocytes (CBC) 2.7 K/uL (0.7-4.9); Absolute Monocytes 0.7 K/uL (0.1-1.3); Absolute Neutrophil 5.6 K/uL (1.8-8.0); Basophils % 1.3 % (0-1.3); Eosinophils % 0.1 % (0-4.4); Hematocrit 38.9 % (36.0-45.0); Lymphocytes % 29.7 % (15.3-44.8); MCH 31.2 pg (27.0-35.0); MCV 91.8 fL (80-100); MPV 8.4 fL (7.6-11.3); Monocytes % 7.7 % (3.3-12.3); RBC Red Blood Cell Count 4.24 M/uL (3.86-4.86)
[2018-01-20] MEDS ORDERED: LIDOCAINE 1% MPF 2 ML AMPULE ONE (21:00)
[2018-01-20] MEDS ORDERED: ONDANSETRON 4 MG (ODT) TAB ONE (21:01)
[2018-01-20 21:04] LABS: ALT/SGPT 26 U/L (12-78); AST/SGOT 20 U/L (15-37); Albumin 3.3 g/dL (3.4-5.0); Alkaline Phosphatase 59 U/L (45-117); BUN Blood Urea Nitrogen 24 mg/dL (7-18); Bicarbonate 27 mmol/L (21-32); Bilirubin Direct < 0.1 mg/dL (0-0.2); Bilirubin Total 0.2 mg/dL (0.2-1.0); Glucose Level 80 mg/dL (74-106); Potassium 4.1 mmol/L (3.5-5.1); Protein, Total 6.9 g/dL (6.4-8.2); Sodium Level 141 mmol/L (136-145)
--- NOTE | 2018-01-20 21:13 | EDPHYS ---
Physician Documentation [facility] Name: Emilia Lora Age: 37 yrs Sex: Female : 1980 Arrival Date: 01/20/2018 Time: 17:33 Bed 2 Private MD: ED Physician Jose A Patel HPI: 01/20 20:01 This 37 yrs old Female presents to ER via Ambulatory with complaints of wa Urinary Problem, Nausea. 20:01 The patient presents to the emergency department with nausea. wa 20:02 The patient presents with urinary symptoms, dysuria, frequency, urgency. Onset: The wa symptoms/episode began/occurred 3 day(s) ago. Modifying factors: The symptoms are alleviated by nothing, the symptoms are aggravated by urinating. Associated signs and symptoms: Pertinent positives: nausea, Pertinent negatives: fever, vaginal discharge, vomiting. Severity of symptoms: At their worst the symptoms were moderate, in the emergency department the symptoms are unchanged. The patient has experienced similar episodes in the past, multiple times, h/o ureteral reflux with multiple urinary tract infections. The patient has not recently seen a physician. 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 hj Historical: - Allergies: 17:54 Cipro; hj 17:54 Levofloxacin; hj - Home Meds: 17:54 Advair Diskus Inhl [Active]; baclofen 20 mg Oral tab 1 tab 3 times per day [Active]; hj Imuran 50 mg Oral tab four times a day [Active]; Lexapro 20 mg Oral tab 1 tab once daily [Active]; Lialda 1.2 gram Oral TbEC 4 tabs once daily [Active]; trazodone 50 mg Oral tab 1 tab 2 times per day [Active]; Wellbutrin 300 mg Oral daily [Active]; - PMHx: 17:54 CKDstage II; PCOS, Depression, Parks's Esophagus, Asthma, endometrios; hj - PSHx: 17:54 kidney surgery; ureter; Cholecystectomy; ablation; hj - Immunization history:: Adult Immunizations up to date. - Social history:: Smoking status: Patient/guardian denies using tobacco, Patient/guardian denies using alcohol. - Ebola Screening: : Patient negative for fever greater than or equal to 101.5 degrees Fahrenheit, and additional compatible Ebola Virus Disease symptoms Patient denies exposure to infectious person Patient denies travel to an Ebola-affected area in the 21 days before illness onset. ROS: 20:04 Positive for urinary symptoms, urinary frequency, burning with urination, Negative wa for vaginal bleeding, vaginal discharge. 20:04 Constitutional: Negative for fever, chills, and weight loss, Eyes: Negative for injury, pain, redness, and discharge, ENT: Negative for injury, pain, and discharge, Neck: Negative for injury, pain, and swelling, Cardiovascular: Negative for chest pain, palpitations, and edema, Respiratory: Negative for shortness of breath, cough, wheezing, and pleuritic chest pain, Back: Negative for injury and pain, MS/Extremity: Negative for injury and deformity, Skin: Negative for injury, rash, and discoloration, Neuro: Negative for headache, weakness, numbness, tingling, and seizure, Psych: Negative for depression, anxiety, suicide ideation, homicidal ideation, and hallucinations. 20:04 Abdomen/GI: Positive for nausea, Negative for abdominal pain, vomiting. 20:04 Back: Negative for pain with movement, radiated pain. 20:04 All other systems are negative. Exam: 20:05 Constitutional: This is a well developed, well nourished patient who is awake, alert, wa and in no acute distress. Head/Face: Normocephalic, atraumatic. Eyes: Pupils equal round and reactive to light, extra-ocular motions intact. Lids and lashes normal. Conjunctiva and sclera are non-icteric and not injected. Cornea within normal limits. Periorbital areas with no swelling, redness, or edema. ENT: Nares patent. No nasal discharge, no septal abnormalities noted. Tympanic membranes are normal and external auditory canals are clear. Oropharynx with no redness, swelling, or masses, exudates, or evidence of obstruction, uvula midline. Mucous membranes moist. Neck: Trachea midline, no thyromegaly or masses palpated, and no cervical lymphadenopathy. Supple, full range of motion without nuchal rigidity, or vertebral point tenderness. No Meningismus. Chest/axilla: Normal chest wall appearance and motion. Nontender with no deformity. No lesions are appreciated. Cardiovascular: Regular rate and rhythm with a normal S1 and S2. No gallops, murmurs, or rubs. Normal PMI, no JVD. No pulse deficits. Respiratory: Lungs have equal breath sounds bilaterally, clear to auscultation and percussion. No rales, rhonchi or wheezes noted. No increased work of breathing, no retractions or nasal flaring. Back: No spinal tenderness. No costovertebral tenderness. Full range of motion. Skin: Warm, dry with normal turgor. Normal color with no rashes, no lesions, and no evidence of cellulitis. MS/ Extremity: Pulses equal, no cyanosis. Neurovascular intact. Full, normal range of motion. Neuro: Awake and alert, GCS 15, oriented to person, place, time, and situation. Cranial nerves II-XII grossly intact. Motor strength 5/5 in all extremities. Sensory grossly intact. Cerebellar exam normal. Normal gait. Psych: Awake, alert, with orientation to person, place and time. Behavior, mood, and affect are within normal limits. 20:05 Abdomen/GI: Inspection: obese Bowel sounds: normal, in all quadrants, Palpation: soft, in all quadrants, mild abdominal tenderness, in the suprapubic area. Vital Signs: 17:55 BP 135 / 66; Pulse 94; Resp 18; Temp 98.4(O); Pulse Ox 100% on R/A; Weight 147.42 kg; Height 5 ft. 9 in. (175.26 cm); Pain 7/10; 20:16 BP 132 / 74; Pulse 84; Resp 16; Pulse Ox 99% on R/A; mt 21:12 BP 123 / 56; Pulse 87; Resp 14; Pulse Ox 97% ; bp 21:31 BP 114 / 57; Pulse 73; Resp 18; Pulse Ox 97% on R/A; tl2 17:55 Body Mass Index 47.99 (147.42 kg, 175.26 cm) MDM: 19:38 Patient medically screened. vt 20:06 Differential diagnosis: symptoms consistent with UTI. pt with one kidney. will work up vt and treat accordingly. 21:11 Data reviewed: vital signs, nurses notes, lab test result(s). Test interpretation: by vt ED physician or midlevel provider: labs noted for BUN of 24. trace blood in urine, otherwise negative. Response to treatment: the patient's symptoms have markedly improved after treatment. 01/20 17:57 Order name: Urine Microscopic Only; Complete Time: 20:34 01/20 19:51 Order name: Urine Dipstick--Ancillary (enter results); Complete Time: 20:34 [facility] 01/20 19:51 Order name: Urine --Ancillary (enter results); Complete Time: 20:34 [facility] 01/20 19:56 Order name: Basic Metabolic Panel; Complete Time: 21:10 vt 01/20 19:56 Order name: CBC with Diff; Complete Time: 21:11 vt 01/20 19:56 Order name: Hepatic Function; Complete Time: 21:11 vt 01/20 17:57 Order name: Urine Dipstick-Ancillary (obtain specimen); Complete Time: 19:47 01/20 17:57 Order name: Urine Test (obtain specimen); Complete Time: 19:47 Administered Medications: 20:48 Not Given (Physician Discretion): Rocephin - (cefTRIAXone) 2 grams IVPB once over 30 tl2 mins; (mix in 100 mL NS) 20:49 Not Given (Physician Discretion): Zofran 4 mg IVP once; over 2 minutes tl2 20:49 Not Given (Physician Discretion): morphine 4 mg IVP once tl2 21:02 Drug: Zofran 4 mg Route: PO; bp 21:14 Follow up: Response: Marked relief of symptoms bp 21:02 Drug: morphine 4 mg Route: IM; Site: right deltoid; bp 21:13 Follow up: Response: Marked relief of symptoms bp 21:03 Drug: Rocephin (cefTRIAXone) 1 grams Route: IM; Site: right gluteus; bp 21:13 Follow up: Response: No adverse reaction bp Disposition: 01/20/18 21:13 Discharged to Home. Impression: Acute Dysuria and Frequency. - Condition is Stable. - Discharge Instructions: Dysuria. - Prescriptions for Macrobid 100 mg Oral Capsule - take 1 capsule by ORAL route every 12 hours for 10 days; 20 capsule. Zofran 4 mg Oral Tablet - take 1 tablet by ORAL route every 12 hours As needed; 20 tablet. - Medication Reconciliation Form, Thank You Letter, Antibiotic Education, Prescription Opioid Use form. - Follow up: Private Physician; When: 2 - 3 days; Reason: Re-evaluation by your physician. - Problem is new. - Symptoms have improved. - Notes: follow up with your doctor within 2-3 days for further evaluation. your urine test today is essentially normal. We have givne you antibiotics based on your symptoms. return if rapidly worsening Signatures: Dispatcher [employer] EDMS Gopi Nuñez, RN RN Fadia Ibrahim RN RN tl2 Jose A Patel MD MD wa Peltier, Brian, RN RN bp Corrections: (The following items were deleted from the chart) 20:54 19:56 IV Saline Lock ordered. vt bp 21:34 21:13 01/20/2018 21:13 Discharged to Home. Impression: Acute Dysuria and Frequency. tl2 Condition is Stable. Forms are Medication Reconciliation Form, Thank You Letter, Antibiotic Education, Prescription Opioid Use. Follow up: Private Physician; When: 2 - 3 days; Reason: Re-evaluation by your physician. Problem is new. Symptoms have improved. lc
--- NOTE | 2018-01-20 21:13 | ER ---
Nurse's Notes [facility] Name: Emilia Lora Age: 37 yrs Sex: Female : 1980 Arrival Date: 01/20/2018 Time: 17:33 Bed 2 Private MD: Diagnosis: Acute Dysuria and Frequency Presentation: 01/20 17:51 Presenting complaint: Patient states: im having urgency and frequency in urination that hj started yesterday and nausea and fever; hx of 1 kidney due to too many infections;. Transition of care: patient was not received from another setting of care. Onset of symptoms was January 20, 2018. Risk Assessment: Do you want to hurt yourself or someone else? Patient reports no desire to harm self or others. Initial Sepsis Screen: Does the patient meet any 2 criteria? No. Patient's initial sepsis screen is negative. Does the patient have a suspected source of infection? No. Patient's initial sepsis screen is negative. Care prior to arrival: None. 17:51 Method Of Arrival: Ambulatory 17:51 Acuity: VINITA 3 hj Triage Assessment: 17:54 General: Appears in no apparent distress. uncomfortable, Behavior is calm, cooperative, hj appropriate for age. Pain: Complains of pain in suprapubic area. GI: Reports nausea. 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 Historical: - Allergies: 17:54 Cipro; hj 17:54 Levofloxacin; hj - Home Meds: 17:54 Advair Diskus Inhl [Active]; baclofen 20 mg Oral tab 1 tab 3 times per day [Active]; hj Imuran 50 mg Oral tab four times a day [Active]; Lexapro 20 mg Oral tab 1 tab once daily [Active]; Lialda 1.2 gram Oral TbEC 4 tabs once daily [Active]; trazodone 50 mg Oral tab 1 tab 2 times per day [Active]; Wellbutrin 300 mg Oral daily [Active]; - PMHx: 17:54 CKDstage II; PCOS, Depression, Parks's Esophagus, Asthma, endometrios; hj - PSHx: 17:54 kidney surgery; ureter; Cholecystectomy; ablation; hj - Immunization history:: Adult Immunizations up to date. - Social history:: Smoking status: Patient/guardian denies using tobacco, Patient/guardian denies using alcohol. - Ebola Screening: : Patient negative for fever greater than or equal to 101.5 degrees Fahrenheit, and additional compatible Ebola Virus Disease symptoms Patient denies exposure to infectious person Patient denies travel to an Ebola-affected area in the 21 days before illness onset. Screenin:55 Abuse screen: Denies threats or abuse. Denies injuries from another. Nutritional hj screening: No deficits noted. Tuberculosis screening: No symptoms or risk factors identified. Fall Risk None identified. Assessment: 17:55 GI: Abdomen is non-distended. hj 19:41 Reassessment: RECD 37YO HF AMBULATORY FROM TRIAGE, C/O URINARY FREQUENCY/URGENCY SINCE bp Y/D. VS STABLE, AFEBRILE. 21:03 Reassessment: UNABLE TO OBTAIN PIV DESPITE MX ATTEMPTS BY MX STAFF. PIV AND IV bp MEDICATION DEFERRED BY MD. 21:31 Reassessment: Patient appears in no apparent distress at this time. Patient and/or tl2 family updated on plan of care and expected duration. Pain level reassessed. Patient is alert, oriented x 3, equal unlabored respirations, skin warm/dry/pink. Pt verbalized understanding of discharge instructions, need for follow up and prescription usage. Vital Signs: 17:55 BP 135 / 66; Pulse 94; Resp 18; Temp 98.4(O); Pulse Ox 100% on R/A; Weight 147.42 kg; hj Height 5 ft. 9 in. (175.26 cm); Pain 7/10; 20:16 BP 132 / 74; Pulse 84; Resp 16; Pulse Ox 99% on R/A; mt 21:12 BP 123 / 56; Pulse 87; Resp 14; Pulse Ox 97% ; bp 21:31 BP 114 / 57; Pulse 73; Resp 18; Pulse Ox 97% on R/A; tl2 17:55 Body Mass Index 47.99 (147.42 kg, 175.26 cm) ED Course: 17:33 Patient arrived in ED. rg4 17:53 Triage completed. hj 17:55 Arm band placed on right wrist. hj 17:56 Patient has correct armband on for positive identification. Placed in gown. Bed in low hj position. Call light in reach. 19:38 Jose A Patel MD is Attending Physician. wa 19:40 Zeb El, RN is Primary Nurse. bp 21:31 No provider procedures requiring assistance completed. Patient did not have IV access tl2 during this emergency room visit. Administered Medications: 20:48 Not Given (Physician Discretion): Rocephin - (cefTRIAXone) 2 grams IVPB once over 30 tl2 mins; (mix in 100 mL NS) 20:49 Not Given (Physician Discretion): Zofran 4 mg IVP once; over 2 minutes tl2 20:49 Not Given (Physician Discretion): morphine 4 mg IVP once tl2 21:02 Drug: Zofran 4 mg Route: PO; bp 21:14 Follow up: Response: Marked relief of symptoms bp 21:02 Drug: morphine 4 mg Route: IM; Site: right deltoid; bp 21:13 Follow up: Response: Marked relief of symptoms bp 21:03 Drug: Rocephin (cefTRIAXone) 1 grams Route: IM; Site: right gluteus; bp 21:13 Follow up: Response: No adverse reaction bp Outcome: 21:13 Discharge ordered by . nv 21:31 Discharged to home ambulatory. tl2 21:31 Condition: stable 21:31 Discharge instructions given to patient, Instructed on discharge instructions, follow up and referral plans. medication usage, Demonstrated understanding of instructions, follow-up care, medications, Prescriptions given X 2. 21:34 Patient left the ED. tl2 Signatures: Gopi Nuñez RN RN hj Knox, Taylor, RN RN 2 Carlee Yeung 4 Crista Rahman nj Jose A Patel MD MD wa Peltier, Brian, RN RN bp Corrections: (The following items were deleted from the chart) 17:57 17:55 Pulse 94bpm; Resp 18bpm; Pulse Ox 100% RA; Temp 98.4F Oral; 147.42 kg; Height 5 hj ft. 9 in.; BMI: 47.9; Pain 7/10; hj 17:58 17:55 Pulse 94bpm; Resp 18bpm; Pulse Ox 100% RA; Temp 98.4F Oral; 147.42 kg; Height 5 hj ft. 9 in.; BMI: 47.9; Pain 7/10; hj
[2018-01-20 21:57] VITALS: TEMP 98.4
[2018-01-20 22:00] VITALS: O2SAT 97
[2018-01-20 22:01] VITALS: BP 114/57
== END 2018-01-20 21:34 | disposition home or self-care (01) ==
LOC: ER 17:30
DX: R30.0 Dysuria (principal); R35.0 Frequency of micturition; N18.3 Chronic kidney disease, stage 3 (moderate); F32.9 Major depressive disorder, single episode, unspecified; J45.909 Unspecified asthma, uncomplicated; Z88.1 Allergy status to other antibiotic agents; Z88.3 Allergy status to other anti-infective agents
CPT/HCPCS: 36415; 80048; 80076; 81003; 81015; 81025; 85025; 96372; 99283; J2001; J2405

== ENCOUNTER 2018-02-07 19:03 | Emergency (ER) | payer SELFPAY ==
--- OUTSIDE RECORDS SUMMARY | 2018-02-07 19:06 | XMS REPORT | Clinical Summary ---
:1980 Author Organization [facility] Address [address] [place] [address] Phone Care Team Providers Name Role Phone [...] Not on file Results Not on fileafter 02/06/2017
--- OUTSIDE RECORDS SUMMARY | 2018-02-07 19:06 | XMS REPORT | Clinical Summary ---
:1980 Author Organization [facility] Address [address] [place] [address] Care Team Providers Name Role Phone Amanda [...] Encounters Date Type Specialty Care Team Description 02/05/2018 Refill Rheumatology Mary Mtz Inflammatory polyarthritis; Enterjesi arthritis; Chronic midline low back pain without sciatica; Cervical radiculopathy; Encounter for monitoring azathioprine therapy; Ulcerative colitis with complication, unspecified location; Neuropathy; Vitamin D insufficiency; Weakness; Inflammatory polyarthropathy; Moderate chronic ulcerative colitis with complication; Acute bilateral low back pain with sciatica, sciatica laterality unspecified 01/30/2018 Refill Rheumatology Mihu, Mary, Inflammatory polyarthropathy; MD Lloyd arthritis; Moderate chronic ulcerative colitis with complication; Acute bilateral low back pain with sciatica, sciatica laterality unspecified; Chronic low back pain with sciatica, sciatica laterality unspecified, unspecified back pain laterality 01/30/2018 Refill Rheumatology Mary Mtz MD 12/30/2017 Telephone Internal Medicine Amanda Gonzalez MD 10/21/2017 Orders Only Rheumatology Monica, Encounter for therapeutic drug level monitoring (Primary Dx); LOVE Sy Inflammatory polyarthropathy; Moderate chronic ulcerative colitis with complication; Weakness; Vitamin D insufficiency; Encounter for long-term (current) use of high-risk medication 10/16/2017 Telephone Pulmonology Odessa Lewis 10/02/2017 Refill Rheumatology Mary Mtz MD 09/30/2017 Refill Rheumatology Mary Mtz Inflammatory polyarthropathy; Enterjesi arthritis; Moderate chronic ulcerative colitis with complication; Acute bilateral low back pain with sciatica, sciatica laterality unspecified; Chronic low back pain with sciatica, sciatica laterality unspecified, unspecified back pain laterality 09/26/2017 Refill Rheumatology Mary Mtz MD 09/24/2017 Refill Rheumatology Mary Mtz MD 09/11/2017 Telephone Sleep Medicine Odessa Lewis 09/11/2017 Orders Only Pulmonology Oscar, RILEY (obstructive sleep CatalinaLOVE cramer apnea) (Primary Dx) 08/14/2017 Refill Rheumatology Mary Mtz MD 08/14/2017 Refill Pulmonology Annabella Liu MD 08/13/2017 Refill Rheumatology Mary Mtz MD 07/29/2017 Clinical Support Rheumatology Mary Mtz MD 07/29/2017 Orders Only Rheumatology Awais Murguia MA polyarthropathy (Primary Dx) 07/20/2017 Refill Rheumatology Mary Mtz MD 07/19/2017 Refill Rheumatology Mary Mtz MD 07/01/2017 Orders Only Pulmonology Calista Yeung MA 06/11/2017 Clinical Support Rheumatology Aamnda Gonzalez MD 06/11/2017 Orders Only Rheumatology Jolynn, Polyarthritis (Primary LOVE Luu Dx) 06/11/2017 Orders Only Rheumatology Mary Mtz, [...] apnea) 04/30/2017 Refill Rheumatology Mary Mtz Inflammatory polyarthsandy; Enterjesi arthritis; Chronic midline low back pain without [...] Anderson MA 04/22/2017 Office Visit Rheumatology Mary Mtz Inflammatory polyarthritis (Primary Dx); Enteropathic arthritis; Myalgia; Chronic midline low back pain without sciatica; Cervical radiculopathy; Encounter for monitoring azathioprine therapy; Fibromyalgia; Ulcerative colitis with complication, unspecified location; Neuropathy; Vitamin D insufficiency; Weakness 04/15/2017 Refill Rheumatology Mary Mtz, Ulcerative colitis with [...] (obstructive sleep apnea) 03/20/2017 Refill Rheumatology Mary Mtz Ulcerative colitis with complication, unspecified location; Vitamin D insufficiency; Weakness; Encounter for monitoring azathioprine therapy; Inflammatory polyarthritis; Fibromyalgia 03/20/2017 Refill Pulmonology Annabella Liu MD 03/19/2017 Orders Only Orthopedic Surgery Jessi Henry LPN 03/15/2017 Refill Internal Medicine Amanda Gonzalez MD 03/15/2017 Refill Rheumatology Mary Mtz MD 02/06/2017 Refill Rheumatology Mary Mtz Ulcerative colitis with complication, unspecified location; Vitamin D insufficiency; Weakness; Encounter for monitoring azathioprine therapy; Inflammatory polyarthritis; Fibromyalgia after 02/06/2017 Immunizations Name Dates Previously Given Next Due [...] Grandfather Mahnaz Parks's esophagus Maternal Grandmother Bates [place] Cancer Maternal Grandmother Bates Sharla Terminal liver cancer GERD Maternal Grandmother Bates [place] Liver cancer Maternal Grandmother Bates Sharla Ulcerative colitis Maternal Grandmother Bates Sharla Arthritis Mother Kiarra Vision loss Mother Kiarra Psuedo-tumor cerebri Alcohol abuse Sister Ena Depression Sister Ena Irritable bowel syndrome Sister Ena Learning disabilities Sister Ena ADD Mental illness Sister Ena PTSD, anxiety Relation Name Status Comments Brother Jeronimo Brother Dave Father Norberto Maternal Grandfather Mahnaz Maternal Grandmother Abtes [place] Mother Kiarra Sister Ena Social History Tobacco [...] 141 kg (310 lb) 05/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 POLYSOMNOGRAPHY 4 OR Routine 05/13/2017 1:26 RILEY (obstructive Results for this MORE PARAMETERS AM ENVIRONMENTAL SERVICES SUPERVISOR sleep apnea) procedure are in the results [...] location Neuropathy Vitamin D insufficiency Weakness after 02/06/2017 Results Polysomnography 4 or more parameters with CPAP (05/13/2017 1:28 AM) Narrative Performed At [facility] [address] [place] [address], [address], [place] [address] Office: [phone] Accredited by [employer] CPAP TITRATION REPORT [...] using Comprehensive Polysomnography with nasal CPAP (CPT 75452). The patient was initially desensitized to CPAP [...] pressure of 10cm/H2O with Resmed Medium size "[id number]" Full Face Mask, C-Flex-3, Ramp 30 minutes with advanced download features with memory card a nd a heated humidifier during sleep. Please add this patient in [facility] patient management system. "Weight reduction is recommended to ideal body weight. "Avoid taking alcohol, sedatives a few hours prior to sleep. "Exercise good sleep hygiene. "The patient should be aware that excessive daytime sleepiness could pose a danger while driving and should use caution until these symptoms are treated. Electronically signed by Annabella Liu M.D., Diplomate, [place] [employer]. Polysomnography 4 or more parameters (05/13/2017 1:26 AM) Narrative Performed At [facility] [address] [facility], [address], [place] [address] Office: [phone] Accredited by [employer] DIAGNOSTIC SLEEP STUDY [...] and severity of obstructive respirations during sleep. [place] Scale score was 23. (A score higher [...] The patient underwent a diagnostic polysomnogram (CPT 96141), which consisted of the following recording technique: [...] "All night sleep study for CPAP/BiPAP titration (CPT-99098) "Weight reduction is recommended to ideal body weight. "Avoid taking alcohol, sedatives a few hours prior to sleep. "Exercise good sleep hygiene. "The patient should be aware that excessive daytime sleepiness could pose a danger while driving and should use caution until these symptoms are treated. Electronically signed by Annabella Liu M.D., Diplomate, [place] [employer]. TB GOLD Quantiferon (04/22/2017 2:27 PM) Quantiferon TB gold NEGATIVE NEGATIVE [facility] Comment: [facility] Negative test result. M. tuberculosis complex infection unlikely. Quantiferon NIL value 0.09 IU/mL [facility] [place] Quantiferon mitogen NIL >10.00 IU/mL [facility] value [facility] Quantiferon TB NIL value 0.00 IU/mL [facility] Comment: [facility] The Nil tube value is used to [...] IU/mL. For additional information, please refer to http://education.GeoPalz.CrowdChat/faq/QFT (This link is being provided for informational/ educational purposes only.) Specimen Blood Narrative Performed At FASTING:NO [facility] Resulting Agency Comment Performing Organization Information: Site ID: [id number] Name: [facility] Address: [address] [place] [phone] Director: Alexia Lee MD Performing Organization Address [facility] Hospital[facility] Phone Number [facility] ([facility]) [facility] [address] [place] [address] HLA-B27 antigen (04/22/2017 2:27 PM) HLA B27 NEGATIVE [facility]GATIVE [facility] Specimen Blood Narrative Performed At FASTING:NO [facility] Resulting Agency Comment Performing Organization Information: Site ID: [id number] Name: [facility] Address: [address] [place] [phone] Director: Dr. Aditya Verma Performing Organization Address [facility] Hospitalcosd Phone Number [facility] ([facility])[address] [place] [address] Vitamin D 25 hydroxy level (04/22/2017 2:27 PM) Vitamin D, 25-hydroxy 28 (L) 30 - 100 ng/mL [facility] Comment: [facility] Vitamin D Status 25-OH Vitamin D: Deficiency:<20 ng/mL Insufficiency: 20 - 29 ng/mL Optimal: > or=30 ng/mL For 25-OH Vitamin D testing on patients on D2-supplementation and patients for whom quantitation of D2 and D3 fractions is required, the QuestAssureD(TM) 25-OH VIT D, (D2,D3), LC/MS/MS is recommended: order code 27918 (patients >2yrs). For more information on this test, go to: http://education.Questetra/faq/BRU246 (This link is being provided for informational/educational purposes only.) Specimen Blood Narrative Performed At FASTING:NO [facility] Resulting Agency Comment Performing Organization Information: Site ID: [id number] Name: [facility] Address: [address] [place] [phone] Director: Alexia Lee MD Performing Organization Address [facility]/Zipcode Phone Number [facility] ([facility]) [place] [address] [place] [address] Urinalysis, automated with microscopy (04/22/2017 2:27 PM) Color, UA YELLOW YELLOW [facility] Appearance CLEAR CLEAR [facility] Specific gravity, urine 1.022 1.001 - 1.035 [facility] pH, urine 6.0 5.0 - 8.0 [facility] Glucose, urine NEGATIVE NEGATIVE [facility] [place] Bilirubin, UA NEGATIVE NEGATIVE [facility] [place] Ketones, UA NEGATIVE NEGATIVE [facility] [place] Occult blood, urine NEGATIVE NEGATIVE [facility] [place] Protein, UA NEGATIVE NEGATIVE [facility] [place] Nitrite, UA NEGATIVE NEGATIVE [facility] [place] Leukocyte esterase, UA NEGATIVE NEGATIVE [facility] [place] WBC, UA NONE SEEN < OR=5 /HPF [facility] [place] RBC, UA 0-2 < OR=2 /HPF [facility] Squamous epithelial cells, UA NONE SEEN < OR=5 /HPF [facility] [place] Bacteria, UA NONE SEEN NONE SEEN /HPF [facility] [place] Hyaline casts, UA NONE SEEN NONE SEEN /LPF [facility] Specimen Urine Narrative Performed At FASTING:NO [facility] Resulting Agency Comment Performing Organization Information: Site ID: [facility] Name: [facility] Address: [address] [place] [phone] Director: Alexia Lee MD Performing Organization Address [facility] Hospital[facility] Phone Number [facility] ([facility]) [address] [address] Sedimentation rate (04/22/2017 2:27 PM) Sedimentation rate 9 < OR=20 mm/h [facility] Specimen Blood Narrative Performed At FASTING:NO [facility] Resulting Agency Comment Performing Organization Information: Site ID: [facility] Name: [facility] Address: [address] [place] [phone] Director: Alexia Lee MD Performing Organization Address [facility] Phone Number [facility] ([facility]) [address] [address] CBC with platelet and differential (04/22/2017 2:27 PM) WBC 9.6 3.8 - 10.8 Thousand/uL [facility] RBC 4.70 3.80 - 5.10 Million/uL [facility] HGB 14.5 11.7 - 15.5 g/dL [facility] HCT 42.5 35.0 - 45.0 % [facility] MCV 90.4 80.0 - 100.0 fL [facility] MCH 30.9 27.0 - 33.0 pg [facility] MCHC 34.1 32.0 - 36.0 g/dL [facility] RDW 13.0 11.0 - 15.0 % [facility] Platelet count 331 140 - 400 Thousand/uL [facility] MPV 9.1 7.5 - 12.5 fL [facility] Neutrophils, absolute 6,557 1,500 - 7,800 cells/uL [facility] Lymphocytes, absolute 2,294 850 - 3,900 cells/uL [facility] Monocytes, absolute 614 200 - 950 cells/uL [facility] Eosinophils, absolute 86 15 - 500 cells/uL [facility] Basophils, absolute 48 0 - 200 cells/uL [facility] Neutrophils 68.3 % [facility] Lymphocytes 23.9 % [facility] Monocytes 6.4 % [facility] Eosinophils 0.9 % [facility] Basophils + RC 0.5 % [facility] Specimen Blood Narrative Performed At FASTING:NO [facility] Resulting Agency Comment Performing Organization Information: Site ID: [facility] Name: [facility] Address: [address] [place] [phone] Director: Alexia Lee MD Performing Organization Address City/State/Zipcode Phone Number [facility] ([facility]) [address] [address] C-reactive protein (04/22/2017 2:27 PM) CRP 29.6 (H) <8.0 mg/L [facility] [place] Specimen Blood Narrative Performed At FASTING:NO [facility]ing [facility] Comment Performing Organization Information: Site ID: [facility] Name: [facility] Address: [address] [place] [phone] Director: Alexia Lee MD Performing Organization Address City/State/Zipcode Phone Number [facility] ([facility]) [address] [address] Uric acid level (04/22/2017 2:27 PM) Uric acid 4.0 2.5 - 7.0 mg/dL [facility] Comment: Therapeutic target for gout patients: <6.0 mg/dL Specimen Blood Narrative Performed At FASTING:NO [facility] Resulting Agency Comment Performing Organization Information: Site ID: A Name: [facility] Address: [address] [place] [phone] Director: Alexia Lee MD Performing Organization Address [facility] Hospitalcode Phone Number [facility] (Service[facility]) [place] [address] Thyroid stimulating hormone (04/22/2017 2:27 PM) TSH 2.10 mIU/L [facility] Comment: Reference Range > or=20 Years0.40-4.50 Ranges First trimester0.26-2.66 Second trimester 0.55-2.73 Third trimester0.43-2.91 Specimen Blood Narrative Performed At FASTING:NO [facility] Resulting Agency Comment Performing Organization Information: Site ID: A Name: [facility] Address: [address] [place] [phone] Director: Alexia Lee MD Performing Organization Address [facility] Hospitalcos[facility] Phone Number [facility] (Service[facility]) [place] [address] T4, free (04/22/2017 2:27 PM) T4, free 1.1 0.8 - 1.8 ng/dL [facility] Specimen Blood Narrative Performed At FASTING:NO [facility] Resulting Agency Comment Performing Organization Information: Site ID: A Name: [facility] Address: [address] [place] [id number] Director: Alexia Lee MD Performing Organization Address [facility] Phone Number [facility] ([facility]) [place] [phone] Comprehensive metabolic panel (04/22/2017 2:27 PM) Glucose 89 65 - 99 mg/dL [facility] Comment: [facility] Fasting reference interval BUN, whole blood 23 7 - 25 mg/dL [facility] Creatinine 1.08 0.50 - 1.10 mg/dL [facility] EGFR Non-Afr. [place] 66 > OR=60 [facility] mL/min/1.73m2 [facility] EGFR 76 > OR=60 [facility] mL/min/1.73m2 [facility] BUN/creatinine ratio NOT APPLICABLE 6 - 22 (calc) [facility] [place] Sodium 140 135 - 146 mmol/L [facility] Potassium 4.4 3.5 - 5.3 mmol/L [facility] [place] Chloride 103 98 - 110 mmol/L [facility] CO2 28 20 - 31 mmol/L [facility] Calcium 9.3 8.6 - 10.2 mg/dL [facility] [place] Protein 7.4 6.1 - 8.1 g/dL [facility] [place] Albumin, S 4.3 3.6 - 5.1 g/dL [facility] Globulin, total 3.1 1.9 - 3.7 g/dL [facility] (calc) [facility] Albumin/globulin ratio 1.4 1.0 - 2.5 (calc) [facility] Total bilirubin 0.3 0.2 - 1.2 mg/dL [facility] Alkaline phosphatase 67 33 - 115 U/L [facility] AST 10 10 - 30 U/L [facility] ALT 9 6 - 29 U/L [facility] Specimen Blood Narrative Performed At FASTING:NO [facility] Resulting Agency Comment Performing Organization Information: Site ID: [facility] Name: [facility] Address: [address] [place] [phone] Director: Alexia Lee MD Performing Organization Address City/State/[facility] Hospitalcode Phone Number [facility] ([facility]) [place] [address] [place] [address] after 02/06/2017 Insurance Payer Benefit Plan / Group Subscriber ID Type Phone Address BCBS BCBS CHOICE PPO/FEDERAL EMPL PPO xxxxxxxxxxxx PPO Home: [id number] [phone] [place] [id number]
[2018-02-07] MEDS ORDERED: NA CHLORIDE 0.9% 1,000 ML ONE (20:53)
[2018-02-07 20:55] LABS: Urine Blood TRACE (NEG); Urine Glucose NEGATIVE (NEG); Urine Protein NEGATIVE (NEG); Urine pH 6.5 (5.0-7.0)
[2018-02-07 21:01] LABS: Urine Bacteria <20 /HPF (<20)
[2018-02-07 21:02] LABS: Urine Amorphous Sediment TRACE /HPF (NONE SEEN); Urine Culture Reflex Order NOT NEEDED
[2018-02-07 21:27] LABS: Absolute Lymphocytes (CBC) 2.3 K/uL (0.7-4.9); Absolute Monocytes 0.9 K/uL (0.1-1.3); Absolute Neutrophil 7.3 K/uL (1.8-8.0); Basophils % 0.8 % (0-1.3); Eosinophils % 0.1 % (0-4.4); Lymphocytes % 21.5 % (15.3-44.8); MCH 30.7 pg (27.0-35.0); MCV 92.1 fL (80-100); MPV 7.8 fL (7.6-11.3); Monocytes % 8.6 % (3.3-12.3); RBC Red Blood Cell Count 4.56 M/uL (3.86-4.86)
[2018-02-07 21:34] LABS: Protime INR 1.05
[2018-02-07 21:38] LABS: Albumin 3.4 g/dL (3.4-5.0); Bilirubin Direct 0.1 mg/dL (0-0.2); Bilirubin Total 0.3 mg/dL (0.2-1.0); Magnesium 1.9 mg/dL (1.8-2.4); Potassium 4.1 mmol/L (3.5-5.1); Protein, Total 7.6 g/dL (6.4-8.2)
[2018-02-07] MEDS ORDERED: MORPHINE 4 MG/ML SYR ONE (21:40)
[2018-02-07] MEDS ORDERED: ONDANSETRON 4 MG/2 ML VIAL ONE (21:40)
--- NOTE | 2018-02-07 22:13 | RAD REPORT ---
EXAM DESCRIPTION: CT - Stone Protocol - 02/07/2018 9:16 pm CLINICAL HISTORY: Left-sided abdominal pain, left-sided flank pain COMPARISON: June 2015 TECHNIQUE: Axial 5 mm thick images were obtained without oral or IV contrast. The [id number] span s the entirety of the system including uppermost abdomen and lung bases. All CT scans are performed using dose optimization technique as appropriate and may include automated exposure control or mA/KV adjustment according to patient size. FINDINGS: No hydronephrosis is present and no obstructing ureteral calculi. No suspicious renal mass es. Isodense masses and pyelonephritis are not excluded on a stone protocol CT scan. No urinary bladd er suspicious finding. Right kidney is absent. Imaged portions of the liver, spleen and pancreas show no suspicious findings on non-contrast imaging . Cholecystectomy clips are present. No biliary tree dilatation. No significant adrenal finding. No suspicious bowel findings. No appendicitis findings. No hernia, mass or bulky lymphadenopathy noted. No free air, free fluid or inflammatory stranding. Ut erus and ovaries show no suspicious findings. No significant bony abnormality. IMPRESSION: No hydronephrosis, obstructing calculus or other acute finding. Isodense masses and pyelonephritis are not excluded on stone protocol technique. No abnormality on this examination to explain left abdominal and flank pain symptoms. Absent right kidney.
--- NOTE | 2018-02-07 22:13 | RAD REPORT ---
EXAM DESCRIPTION: RAD - Chest Single View - 02/07/2018 9:21 pm CLINICAL HISTORY: Cough, shortness of breath COMPARISON: August 2016 TECHNIQUE: AP portable chest image was obtained 2112 hours . FINDINGS: No peripheral mass, consolidation or failure. Lung markings in each base are mildly promin ent but not clearly different. Lung base interstitial pneumonia is unlikely. Heart and vasculature ar e normal. No measurable pleural effusion and no pneumothorax. No gross bony abnormality seen. No acut e aortic findings suspected. IMPRESSION: Bilateral lung base interstitial markings are prominent but not substantially different. Acute lung base interstitial pneumonia is unlikely but not entirely excluded. No consolidation, mass or failure.
--- NOTE | 2018-02-07 22:37 | EDPHYS ---
Physician Documentation [facility] Name: Emilia Lora Age: 37 yrs Sex: Female : 1980 Arrival Date: 02/07/2018 Time: 19:05 Bed 5 Private MD: out of town, doctor ED Physician Jonathan Love HPI: 02/07 20:42 This 37 yrs old Female presents to ER via Ambulatory with complaints of Fever, evelyne Vomiting, Urinary Problem. 20:42 The patient reports fever, that was measured at 101 degrees Fahrenheit. Onset: The evelyne symptoms/episode began/occurred 3 day(s) ago. Modifying factors: there are no obvious modifying factors. Associated signs and symptoms: Pertinent positives: abdominal pain, backache, chills. Severity of symptoms: At their worst the symptoms were. The patient has experienced similar episodes in the past, several times. 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 - Social history:: Smoking status: Patient/guardian denies using tobacco. - Ebola Screening: : No symptoms or risks identified at this time. - Family history:: not pertinent. ROS: 20:42 Constitutional: Negative for fever, chills, and weight loss, Eyes: Negative for injury, evelyne pain, redness, and discharge, ENT: Negative for injury, pain, and discharge, Neck: Negative for injury, pain, and swelling, Cardiovascular: Negative for chest pain, palpitations, and edema, Respiratory: Negative for shortness of breath, cough, wheezing, and pleuritic chest pain, MS/Extremity: Negative for injury and deformity, Skin: Negative for injury, rash, and discoloration, Neuro: Negative for headache, weakness, numbness, tingling, and seizure, Psych: Negative for depression, anxiety, suicide ideation, homicidal ideation, and hallucinations, Allergy/Immunology: Negative for hives, rash, and allergies, Endocrine: Negative for neck swelling, polydipsia, polyuria, polyphagia, and marked weight changes, Hematologic/Lymphatic: Negative for swollen nodes, abnormal bleeding, and unusual bruising. 20:42 Abdomen/GI: Positive for abdominal pain, of the left lower quadrant. 20:42 Back: Positive for pain at rest. 20:42 : Positive for flank pain, burning with urination, difficulty urinating. Exam: 20:42 Constitutional: This is a well developed, well nourished patient who is awake, alert, evelyne and in no acute distress. Head/Face: Normocephalic, atraumatic. Eyes: Pupils equal round and reactive to light, extra-ocular motions intact. Lids and lashes normal. Conjunctiva and sclera are non-icteric and not injected. Cornea within normal limits. Periorbital areas with no swelling, redness, or edema. ENT: Nares patent. No nasal discharge, no septal abnormalities noted. Tympanic membranes are normal and external auditory canals are clear. Oropharynx with no redness, swelling, or masses, exudates, or evidence of obstruction, uvula midline. Mucous membranes moist. Neck: Trachea midline, no thyromegaly or masses palpated, and no cervical lymphadenopathy. Supple, full range of motion without nuchal rigidity, or vertebral point tenderness. No Meningismus. Chest/axilla: Normal chest wall appearance and motion. Nontender with no deformity. No lesions are appreciated. Respiratory: Lungs have equal breath sounds bilaterally, clear to auscultation and percussion. No rales, rhonchi or wheezes noted. No increased work of breathing, no retractions or nasal flaring. Female : Normal external genitalia. Skin: Warm, dry with normal turgor. Normal color with no rashes, no lesions, and no evidence of cellulitis. MS/ Extremity: Pulses equal, no cyanosis. Neurovascular intact. Full, normal range of motion. Neuro: Awake and alert, GCS 15, oriented to person, place, time, and situation. Cranial nerves II-XII grossly intact. Motor strength 5/5 in all extremities. Sensory grossly intact. Cerebellar exam normal. Normal gait. Psych: Awake, alert, with orientation to person, place and time. Behavior, mood, and affect are within normal limits. 20:42 Cardiovascular: Rate: tachycardic, Rhythm: regular, Pulses: Pulses are 4+ in bilateral radial, brachial, femoral, popliteal, posterior tibial and and dorsalis pedis arteries.. Heart sounds: normal, Edema: is not appreciated. Vital Signs: 19:24 BP 139 / 95; Pulse 111; Resp 19; Temp 98.4; Pulse Ox 98% on R/A; Weight 136.08 kg; la1 Height 5 ft. 9 in. (175.26 cm); 21:42 BP 121 / 55; Pulse 99; Resp 18; Pulse Ox 97% on R/A; aa1 23:03 BP 112 / 64; Pulse 97; Resp 16; Pulse Ox 98% on R/A; Pain 0/10; aa1 19:24 Body Mass Index 44.30 (136.08 kg, 175.26 cm) la1 MDM: 20:34 Patient medically screened. [facility] 20:45 Data reviewed: vital signs, nurses notes, lab test result(s), EKG, radiologic studies, evelyne plain films. 02/07 20:28 Order name: Urine Microscopic Only; Complete Time: 21:33 [facility] 02/07 20:28 Order name: Urine Culture [facility] 02/07 20:41 Order name: Basic Metabolic Panel; Complete Time: 22:33 [facility] 02/07 20:41 Order name: CBC with Diff; Complete Time: 21:33 [facility] 02/07 20:41 Order name: Ckmb; Complete Time: 22:33 [facility] 02/07 20:41 Order name: CPK; Complete Time: 22:33 [facility] 02/07 20:41 Order name: LFT's; Complete Time: 22:33 [facility] 02/07 20:41 Order name: Magnesium; Complete Time: 22:33 [facility] 02/07 20:41 Order name: NT PRO-BNP; Complete Time: 22:33 [facility] 02/07 20:41 Order name: PT-INR; Complete Time: 22:33 [facility] 02/07 20:41 Order name: Ptt, Activated; Complete Time: 22:33 [facility] 02/07 20:41 Order name: Troponin (emerg Dept Use Only); Complete Time: 22:33 [facility] 02/07 20:41 Order name: Blood Culture Adult (2) [facility] 02/07 20:41 Order name: Lipase; Complete Time: 22:33 [facility] 02/07 20:28 Order name: Urine Dipstick-Ancillary (obtain specimen); Complete Time: 20:38 [facility] 02/07 20:28 Order name: Urine Test (obtain specimen); Complete Time: 20:38 [facility] 02/07 20:41 Order name: XRAY Chest (1 view); Complete Time: 22:33 [facility] 02/07 20:41 Order name: EKG; Complete Time: 20:43 [facility] 02/07 20:41 Order name: Cardiac monitoring; Complete Time: 21:22 [facility] 02/07 20:41 Order name: EKG - Nurse/Tech; Complete Time: 21:38 [facility] 02/07 20:41 Order name: IV Saline Lock; Complete Time: 21:22 [facility] 02/07 20:41 Order name: Labs collected and sent; Complete Time: 21: [facility] 02/07 20:41 Order name: O2 Per Protocol; Complete Time: 21: [facility] 02/07 20:41 Order name: CT Stone Protocol; Complete Time: 22:33 [facility] 02/07 20:51 Order name: Urine Dipstick--Ancillary (enter results); Complete Time: 21:33 [facility] 02/07 20:51 Order name: Urine --Ancillary (enter results); Complete Time: 21:33 [facility] 02/07 20:41 Order name: O2 Sat Monitoring; Complete Time: 21:22 [facility] Administered Medications: 21:41 Drug: NS 0.9% 1000 ml Route: IV; Rate: 1 bolus; Site: right forearm; aa1 23:02 Follow up: IV Status: Completed infusion aa1 21:50 Drug: morphine 4 mg Route: IVP; Site: right forearm; aa1 23:02 Follow up: Response: No adverse reaction; Pain is decreased aa1 21:50 Drug: Zofran 4 mg Route: IVP; Site: right forearm; aa1 23:01 Follow up: Response: No adverse reaction; Nausea is decreased aa1 22:53 Drug: Zithromax 500 mg Route: PO; tl2 23:01 Follow up: Response: No adverse reaction; Medication administered at discharge. aa1 Disposition: 02/07/18 22:36 Discharged to Home. Impression: Weakness, Acute upper respiratory infection, unspecified, Dysuria. - Condition is Stable. - Discharge Instructions: Dysuria, Upper Respiratory Infection, Adult, Weakness, Fatigue, Cough, Adult, [id number], Weakness, [id number]. - Prescriptions for Zithromax Z- Francis 250 mg Oral Tablet - take 1 tablet by ORAL route as directed for 5 days Day 1 - take two (2) tablets one time. Day 2, 3, 4 , 5 take one (1) tablet once daily.; 6 tablet. Macrobid 100 mg Oral Capsule - take 1 capsule by ORAL route every 12 hours for 7 days; 14 capsule. - Medication Reconciliation Form, Thank You Letter, Antibiotic Education, Prescription Opioid Use form. - Follow up: Private Physician; When: 2 - 3 days; Reason: Recheck today's complaints, Continuance of care, Re-evaluation by your physician. - Problem is new. - Symptoms have improved. Signatures: Dispatcher [employer] EDMS Thais Lees RN RN aa1 Jonathan Love MD MD cha Attema, Lee, RN RN la1 Fadia Ibrahim RN RN tl2 Corrections: (The following items were deleted from the chart) 23:05 22:36 02/07/2018 22:36 Discharged to Home. Impression: Weakness; Acute upper aa1 respiratory infection, unspecified; Dysuria. Condition is Stable. Forms are Medication Reconciliation Form, Thank You Letter, Antibiotic Education, Prescription Opioid Use. Follow up: Private Physician; When: 2 - 3 days; Reason: Recheck today's complaints, Continuance of care, Re-evaluation by your physician. Problem is new. Symptoms have improved. evelyne
--- NOTE | 2018-02-07 22:37 | ER ---
Nurse's Notes [facility] Name: Emilia Lora Age: 37 yrs Sex: Female : 1980 Arrival Date: 02/07/2018 Time: 19:05 Bed 5 Private MD: out of town, doctor Diagnosis: Weakness;Acute upper respiratory infection, unspecified;Dysuria Presentation: 02/07 19:22 Presenting complaint: Patient states: I have chronic complicated UTIs and just got done la1 taking macrobid but I think the infection is going up to my kidney. Transition of care: patient was not received from another setting of care. Onset of symptoms was February 07, 2018. Risk Assessment: Do you want to hurt yourself or someone else? Patient reports no desire to harm self or others. Initial Sepsis Screen: Does the patient meet any 2 criteria? HR > 90 bpm. No. Patient's initial sepsis screen is negative. Does the patient have a suspected source of infection? No. Patient's initial sepsis screen is negative. Care prior to arrival: None. 19:22 Method Of Arrival: Ambulatory la1 19:22 Acuity: VINITA 3 la1 [employer]: 19:24 LMP N/A - Depo-provera la1 Historical: - Allergies: 19:24 Cipro; la1 19:24 Levofloxacin; la1 19:24 Keflex; la1 - PMHx: 19:24 CKDstage II; PCOS, Depression, Parks's Esophagus, Asthma, endometrios; Rheumatoid la1 Arthritis; ulcertive colitis; - Immunization history:: Adult Immunizations up to date. - Social history:: Smoking status: Patient/guardian denies using tobacco. - Ebola Screening: : No symptoms or risks identified at this time. - Family history:: not pertinent. Screenin:50 Abuse screen: Denies threats or abuse. Denies injuries from another. Nutritional aa1 screening: No deficits noted. Tuberculosis screening: No symptoms or risk factors identified. Fall Risk None identified. Assessment: 20:50 General: Appears in no apparent distress. comfortable, Behavior is calm, cooperative, aa1 appropriate for age. Pain: Complains of pain in low back area and left lower quadrant Quality of pain is described as burning, Pain began several weeks ago Is episodic, chronic. Neuro: Level of Consciousness is awake, alert, obeys commands, Oriented to person, place, time, situation, Moves all extremities. Full function Gait is steady. Cardiovascular: Denies chest pain, diaphoresis, palpitations, shortness of breath. Respiratory: Airway is patent Respiratory effort is even, unlabored, Respiratory pattern is regular, symmetrical. GI: Abdomen is obese, Abd is soft X 4 quads Reports vomiting. : Reports pain lower quadrant(s). EENT: No signs and/or symptoms were reported regarding the EENT system. Derm: Skin is intact, is healthy with good turgor, Skin is pink, warm \T\ dry. Musculoskeletal: Circulation, motion, and sensation intact. Capillary refill < 3 seconds, Range of motion: intact in all extremities. 21:41 Reassessment: Patient appears in no apparent distress at this time. Patient and/or aa1 family updated on plan of care and expected duration. Pain level reassessed. Patient is alert, oriented x 3, equal unlabored respirations, skin warm/dry/pink. Awaiting lab results. 23:03 Reassessment: Patient appears in no apparent distress at this time. Patient is alert, aa1 oriented x 3, equal unlabored respirations, skin warm/dry/pink. Discussed d/c \T\ f/u instructions with pt; denies questions or concerns at this time Patient states feeling better. Vital Signs: 19:24 BP 139 / 95; Pulse 111; Resp 19; Temp 98.4; Pulse Ox 98% on R/A; Weight 136.08 kg; la1 Height 5 ft. 9 in. (175.26 cm); 21:42 BP 121 / 55; Pulse 99; Resp 18; Pulse Ox 97% on R/A; aa1 23:03 BP 112 / 64; Pulse 97; Resp 16; Pulse Ox 98% on R/A; Pain 0/10; aa1 19:24 Body Mass Index 44.30 (136.08 kg, 175.26 cm) la1 ED Course: 19:05 Patient arrived in ED. mr 19:06 out of town, doctor is Private Physician. mr 19:23 Triage completed. la1 19:25 Arm band placed on right wrist. la1 20:26 Thais Lees RN is Primary Nurse. aa1 20:33 Jonathan Love MD is Attending Physician. evelyne 20:50 Patient has correct armband on for positive identification. Placed in gown. Bed in low aa1 position. Call light in reach. Pulse ox on. NIBP on. 20:50 Initial lab(s) drawn, by me, sent to lab. First set of blood cultures drawn by me. aa1 Missed attempt(s): 22 gauge in right forearm. Bleeding controlled, band aid applied, catheter tip intact. 21:05 Second set of blood cultures drawn by me. aa1 21:17 CT Stone Protocol In Process Unspecified. EDMS 21:21 XRAY Chest (1 view) In Process Unspecified. EDMS 22:10 Inserted saline lock: 24 gauge in right forearm, using aseptic technique. aa1 23:03 No provider procedures requiring assistance completed. IV discontinued, intact, aa1 bleeding controlled, No redness/swelling at site. Pressure dressing applied. Administered Medications: 21:41 Drug: NS 0.9% 1000 ml Route: IV; Rate: 1 bolus; Site: right forearm; aa1 23:02 Follow up: IV Status: Completed infusion aa1 21:50 Drug: morphine 4 mg Route: IVP; Site: right forearm; aa1 23:02 Follow up: Response: No adverse reaction; Pain is decreased aa1 21:50 Drug: Zofran 4 mg Route: IVP; Site: right forearm; aa1 23:01 Follow up: Response: No adverse reaction; Nausea is decreased aa1 22:53 Drug: Zithromax 500 mg Route: PO; tl2 23:01 Follow up: Response: No adverse reaction; Medication administered at discharge. aa1 Outcome: 22:36 Discharge ordered by . evelyne 23:04 Discharged to home ambulatory. aa1 23:04 Condition: good 23:04 Discharge instructions given to patient, Instructed on discharge instructions, follow up and referral plans. medication usage, Demonstrated understanding of instructions, follow-up care, medications, Prescriptions given X 2. 23:05 Patient left the ED. aa1 Signatures: Dispatcher [employer] Thais Mari, RN RN aa1 Jonathan Love MD MD cha Rivera, Maria mr Attema, Lee, RN RN la1 Fadia Ibrahim RN RN tl2
[2018-02-07] MEDS ORDERED: AZITHROMYCIN 250 MG TAB ONE (22:50)
[2018-02-07 23:32] VITALS: TEMP 98.4
[2018-02-07 23:34] VITALS: BP 112/64; O2SAT 98
--- NOTE | 2018-02-08 06:02 | EKG ---
Test Date: 2018-02-07 Test Time: 21:44:42 Material Processor: MELISA MEASUREMENT RESULTS: Intervals: Rate: 96 CA: 146 QRSD: 80 QT: 358 QTc: 452 [place]: P: 44 CA: 146 QRS: 41 T: 25 INTERPRETIVE STATEMENTS: Normal sinus rhythm Normal ECG Compared to ECG 01/20/2016 21:04:55 No significant changes Electronically Signed On 02-08-18 06:01:22 CDT by Nico Dan
== END 2018-02-07 23:05 | disposition home or self-care (01) ==
LOC: ER 19:03
DX: J06.9 Acute upper respiratory infection, unspecified (principal); R30.0 Dysuria; R53.1 Weakness; N18.3 Chronic kidney disease, stage 3 (moderate); Z88.1 Allergy status to other antibiotic agents; Z88.3 Allergy status to other anti-infective agents
CPT/HCPCS: 36415; 71045; 74176; 76377; 80048; 80076; 81003; 81015; 81025; 82550; 82553; 83690; 83735; 83880; 84484; 85025; 85610; 85730; 87040; 87086; 87088; 93005; 96361; 96374; 96375; 99284; J2405; J7030

== ENCOUNTER 2018-08-04 15:45 | Emergency (ER) | payer SELFPAY ==
[2011-11-18 02:14] VITALS: BP 127/72
--- OUTSIDE RECORDS SUMMARY | 2018-08-04 15:48 | XMS REPORT | Clinical Summary ---
:1980 Author Organization [facility] Address [address] [place] [address] Care Team Providers Name Role Phone Ana Primary Care Provider Allergies No Known Allergies Medications Medication Sig Dispensed Refills Start Date End Date Status norethindrone-ethinyl Take 1 tablet by 0 Active estradiol (MICROGESTIN mouth daily. 07/13) 1-20 mg-mcg per tablet dexlansoprazole 60 mg Take 60 mg by 0 Active capsule mouth daily. buPROPion HCl 450 mg Take 450 mg by 0 Active Tb24 mouth daily. albuterol HFA (VENTOLIN Inhale 1 puff by 0 Active HFA) 90 mcg/actuation mouth via inhaler inhaler every 6 (six) hours as needed for Wheezing. fluticasone-salmeterol Inhale 1 puff by 0 Active (ADVAIR) 100-50 mcg/dose mouth via diskus inhaler inhaler every 12 (twelve) hours. traZODone (DESYREL) 100 Take 200 mg by 0 Active MG tablet mouth nightly. nitrofurantoin, Take 100 mg by 0 Active macrocrystal-monohydrate mouth 2 (two) , (MACROBID) 100 MG times daily. capsule Active Problems Not on file Social History Tobacco Use Types Packs/Day Years Used Date Unknown If Ever Smoked Alcohol Use Drinks/Week oz/Week Comments No Sex Assigned at Date Recorded Not on file Job Start Date Occupation Industry Not on file Not on file Not on file Travel History Travel Start Travel End No recent travel history available. Last Filed Vital Signs Not on file Plan of Treatment Not on file Results Not on fileafter 08/03/2017 Insurance Payer Benefit Plan / Subscriber ID Type Phone Address Group [employer]UE [employer]OSS/[employer]UE [employer]BS PPO POS EPO xxxxxxxxxxxx PPO [phone] [address] [place] [address]
--- OUTSIDE RECORDS SUMMARY | 2018-08-04 15:48 | XMS REPORT | Clinical Summary ---
:1980 Author Organization [facility] Address [address] [place] [address] Care Team Providers Name Role Phone Amanda Gonzalez MD Primary Care Provider Allergies Active Allergy Reactions Severity Noted Date Comments Adhesive Itching 04/30/2016 Skin turns red Adhesive Tape-Silicones Itching 01/23/2016 Skin turns red Cephalexin Itching 04/30/2016 Ciprofloxacin 01/22/2016 Tachycardia Duloxetine Hcl 05/14/2011 Serotonin syndrome Levofloxacin Palpitations High 01/22/2016 Tachycardia Tapentadol Itching 01/14/2015 Skin turns red Tolmetin Swelling 04/30/2016 Face and tongue Medications Medication Sig Dispensed Refills Start End Status Date Date buPROPion XL Take 300 mg by 0 Active (WELLBUTRIN XL) 300 mouth daily. MG 24 hr tablet escitalopram Take 20 mg by 0 Active (LEXAPRO) 20 MG mouth daily. 6 tablet L. RHAMNOSUS Take 1 tablet by 0 Active GG/INULIN mouth daily. (CULTURELLE PROBIOTICS ORAL) traZODone (DESYREL) Take 100 mg by 0 Active 100 MG tablet mouth 2 (two) times a day. mesalamine (LIALDA) Take 1,200 mg by 0 Active 1.2 gram EC tablet mouth 4 (four) times a day. norethindrone-e.est Take 1 tablet by 0 Active radiol-iron mouth daily. (LOESTRIN 24 FE) [...] 90 mcg/actuation for shortness of inhaler breath. ADVAIR DISKUS INHALE ONE PUFF BY 60 [...] 8 injectorIndications EVERY 28 DAYS. : Inflammatory polyarthropathy (HCC), Enteropathic arthritis, Moderate chronic ulcerative colitis with complication (HCC), Acute bilateral low back pain with sciatica, sciatica laterality unspecified, Chronic low back pain with sciatica, sciatica laterality unspecified, unspecified back pain laterality baclofen (LIORESAL) Take 1 tablet (20 180 tablet 0 Active 20 MG mg total) by mouth 8 019 tabletIndications: 2 (two) times a Cervical day for 90 days. radiculopathy, Myalgia gabapentin Take 1 tablet (600 90 tablet 10 Active (NEURONTIN) 600 mg mg total) by mouth 8 tablet 3 (three) times a day. azaTHIOprine TAKE THREE TABLETS 90 tablet 0 Active (IMURAN) 50 mg BY MOUTH DAILY 9 019 tablet azaTHIOprine Take 3 tablets 90 tablet 0 Active (IMURAN) 50 mg (150 mg total) by 9 019 tablet mouth daily for 30 days. predniSONE Take 1-3 tablets 90 tablet 0 Active (DELTASONE) 5 mg (5-15 mg total) by 9 019 tablet mouth daily for 30 days. albuterol (ACCUNEB) Take 3 mL (0.63 mg 75 mL 12 0.63 mg/3 mL total) by 7 018 nebulizer solution nebulization every 6 (six) hours as needed for wheezing. gabapentin Take 1 tablet (600 90 tablet 11 (NEURONTIN) 600 mg mg total) by mouth 7 018 tabletIndications: 3 (three) times a Inflammatory day. polyarthritis (HCC), Enteropathic arthritis, Chronic midline low back pain without sciatica, Cervical radiculopathy, Encounter for monitoring azathioprine therapy, Ulcerative colitis with complication, unspecified location (HCC), Neuropathy, Vitamin D insufficiency, Weakness baclofen (LIORESAL) TAKE ONE TABLET BY 90 tablet 0 Discontinued 20 MG tablet MOUTH TWICE A DAY 7 018 golimumab (SIMPONI) Inject 50 mg under 0.5 mL 4 Discontinued 50 mg/0.5 mL pen the skin every 28 7 018 injectorIndications days. : Inflammatory polyarthropathy (HCC), Enteropathic arthritis, Moderate chronic ulcerative colitis with complication (HCC), Acute bilateral low back pain with sciatica, sciatica laterality unspecified, Chronic low back pain with sciatica, sciatica laterality unspecified, unspecified back pain laterality cetirizine (ZyrTEC) Take 1 tablet (10 30 [...] tablet MOUTH TWICE A DAY 8 018 baclofen (LIORESAL) TAKE 1 TABLET BY 90 tablet 0 Discontinued 20 MG tablet MOUTH TWICE DAILY 8 018 baclofen (LIORESAL) Take 1 tablet (20 180 tablet 0 Discontinued 20 MG mg total) by mouth 8 018 tabletIndications: 2 (two) times a Cervical day for 90 days. radiculopathy, Myalgia predniSONE Take 1-3 tablets 90 tablet 0 (DELTASONE) 5 mg (5-15 mg total) by 8 018 tabletIndications: mouth daily as Cervical needed (joint pain radiculopathy, and swelling) for Myalgia up to 30 days. azaTHIOprine Take 3 tablets 90 tablet 0 Discontinued (IMURAN) 50 mg (150 mg total) by 8 018 tablet mouth daily for 30 days. azaTHIOprine TAKE THREE TABLETS 90 tablet 0 Discontinued (IMURAN) 50 mg BY MOUTH DAILY 8 018 tablet predniSONE TAKE ONE TO TWO 60 tablet 0 Discontinued (DELTASONE) 5 mg TABLETS BY MOUTH 8 018 tablet EVERY DAY NEEDED FOR JOINT PAIN FOR UP TO 30 DAYS predniSONE TAKE 1 TO 3 90 tablet 0 Discontinued (DELTASONE) 5 mg TABLETS BY MOUTH 8 018 tablet EVERY DAY NEEDED FOR JOINT PAIN gabapentin TAKE 1 TABLET BY 90 tablet 10 Discontinued (NEURONTIN) 600 mg MOUTH THREE TIMES 8 018 tablet DAILY azaTHIOprine Take 3 tablets 90 tablet 0 Discontinued (IMURAN) 50 mg (150 mg total) by 8 019 tablet mouth daily for 30 days. predniSONE Take 1-3 tablets 90 tablet 0 Discontinued (DELTASONE) 5 mg (5-15 mg total) by 8 019 tablet mouth daily for 30 days. azaTHIOprine Take 3 tablets 90 tablet 0 Discontinued (IMURAN) 50 mg (150 mg total) by 9 019 tablet mouth daily for 30 days. azaTHIOprine TAKE THREE TABLETS 90 tablet 0 (IMURAN) 50 mg BY MOUTH DAILY 9 019 tablet predniSONE Take 1-3 tablets 90 tablet 0 Discontinued (DELTASONE) 5 mg (5-15 mg total) by 9 019 tablet mouth daily for 30 days. Active Problems Problem Noted Date Enteropathic arthritis [...] Encounters Date Type Specialty Care Team Description 08/01/2018 Refill Rheumatology Mary Mtz MD 07/31/2018 Refill Rheumatology Mary Mtz MD 07/31/2018 Refill Rheumatology Mary Mtz MD 07/29/2018 Refill Rheumatology Mary Mtz MD 07/01/2018 Refill Rheumatology Mary Mtz MD 06/30/2018 Refill Rheumatology Mary Mtz MD 06/29/2018 Refill Rheumatology Mary Mtz MD 05/23/2018 Refill Rheumatology Mary Mtz MD Cervical radiculopathy; Myalgia 05/20/2018 Refill Mary Hartley MD 04/30/2018 Refill Rheumatology Mary Mtz MD 04/18/2018 Refill Rheumatology Mary Mtz MD 04/17/2018 Refill Rheumatology Mary Mtz MD 04/02/2018 Refill Rheumatology Mary Mtz MD 03/05/2018 Orders Only Rheumatology Mary Mtz MD 02/25/2018 Orders Only Rheumatology Mary Mtz MD Cervical radiculopathy (Primary Dx); Myalgia 02/05/2018 Refill Rheumatology Mary Mtz MD Inflammatory polyarthritis; Enteropathic arthritis; Chronic midline low [...] laterality 01/30/2018 Refill Rheumatology Mary Mtz MD Inflammatory polyarthropathy; Enteropathic arthritis; Moderate chronic ulcerative colitis with complication; Acute bilateral low back pain with sciatica, sciatica laterality unspecified; Chronic low back pain with sciatica, sciatica laterality unspecified, unspecified back pain laterality 01/30/2018 Refill Rheumatology Mary Mtz MD 12/30/2017 Telephone Internal Medicine Amanda Gonzalez MD 10/21/2017 Orders Only Rheumatology Kerrie Anderson MA Encounter for therapeutic drug level monitoring (Primary Dx); Inflammatory polyarthropathy; Moderate chronic ulcerative colitis with complication; Weakness; Vitamin D insufficiency; Encounter for long-term (current) use of high-risk medication 10/16/2017 Telephone Pulmonology Odessa Lewis 10/02/2017 Refill Mary Hartley MD 09/30/2017 Refill Rheumatology Mary Mtz MD Inflammatory polyarthropathy; Enteropathic arthritis; Moderate chronic ulcerative colitis with complication; Acute bilateral low back pain with sciatica, sciatica laterality unspecified; Chronic low back pain with sciatica, sciatica laterality unspecified, unspecified back pain laterality 09/26/2017 Refill Rheumatology Mary Mtz MD 09/24/2017 Refill Rheumatology Mary Mtz MD 09/11/2017 Telephone Sleep Medicine Odessa Lewis 09/11/2017 Orders Only Pulmonology Catalina Moore MA RILEY (obstructive sleep apnea) (Primary Dx) 08/14/2017 Refill Rheumatology Mary Mtz MD 08/14/2017 Refill Pulmonology Annabella Liu MD 08/13/2017 Refill Rheumatology Mary Mtz MD after 08/03/2017 Immunizations Name Dates Previously Given Next Due [...] Grandmother Bates Sharla Cancer Maternal Grandmother [place] liver cancer GERD Maternal Grandmother Bates Sharla Liver cancer Maternal Grandmother [place] Ulcerative colitis Maternal Grandmother [place] Arthritis Mother Kiarra Vision loss Mother Kiarra Psuedo-tumor cerebri Alcohol abuse Sister Ena Depression Sister Ena Irritable bowel syndrome Sister Ena Learning disabilities Sister Ena ADD Mental illness Sister Ena PTSD, anxiety Relation Name Status Comments Brother Jeronimo Brother Dave Father Norberto Maternal Grandfather Mahnaz Maternal Grandmother [place] Mother Kiarra Sister Ena Social History Tobacco [...] Signs Not on file Plan of Treatment Health Maintenance Due Date Last Done Comments CERVICAL CANCER SCREENING 2001 INFLUENZA VACCINE 01/22/2018 04/17/2016, 04/13/2015 Results Not on fileafter 08/03/2017 Insurance Payer Benefit Plan / Group Subscriber ID Type Phone Address BCBS BCBS CHOICE PPO/FEDERAL EMPL PPO xxxxxxxxxxxx PPO Advance Directives Patient has advance care planning documents on file. For more information, please contact:[facility] [place] [address]
--- NOTE | 2018-08-04 17:08 | RAD REPORT ---
EXAM DESCRIPTION: RAD - Foot Left 3 View - 08/04/2018 5:03 pm CLINICAL HISTORY: PAIN COMPARISON: FOOT W OBLIQUES dated 09/07/2009 FINDINGS: No fracture or dislocation is evident. No aggressive marrow pattern. A small plantar calca joseph spur is evident.
--- NOTE | 2018-08-04 17:24 | EDPHYS ---
Physician Documentation [facility] Name: Emilia Lora Age: 38 yrs Sex: Female : 1980 Arrival Date: 08/04/2018 Time: 15:47 Bed 10 Private MD: out of town, doctor ED Physician Brina Wilkins HPI: 08/04 16:30 This 38 yrs old Female presents to ER via Ambulatory with complaints of Foot cp Pain. 16:30 The patient presents with pain, that is acute, tenderness. The complaints affect the cp left heel and dorsum of left foot. Context: resulted from an unknown cause, the patient can fully bear weight, the patient is able to ambulate, with mild difficulty. Onset: The symptoms/episode began/occurred 5 day(s) ago. Associated signs and symptoms: Pertinent negatives calf tenderness, numbness, swelling, weakness. Treatment prior to arrival includes: over the counter medications, NSAIDS. Severity of symptoms: in the emergency department the symptoms are unchanged, despite home interventions. 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 - Social history:: Smoking status: Patient/guardian denies using tobacco. - Ebola Screening: : No symptoms or risks identified at this time. ROS: 16:40 Constitutional: Negative for body aches, chills, fever, poor PO intake. cp 16:40 Eyes: Negative for injury, pain, redness, and discharge. cp 16:40 Cardiovascular: Negative for chest pain. 16:40 Respiratory: Negative for cough, shortness of breath, wheezing. 16:40 Abdomen/GI: Negative for abdominal pain, vomiting, diarrhea, constipation. 16:40 MS/extremity: Positive for pain, tenderness, of the left heel and dorsum of left foot, Negative for decreased range of motion, deformity, paresthesias. 16:40 Skin: Negative for cellulitis, rash. 16:40 Neuro: Negative for altered mental status, headache, weakness. 16:40 All other systems are negative. Exam: 16:45 Constitutional: The patient appears in no acute distress, alert, awake, non-toxic, well cp developed, well nourished, obese. 16:45 Head/Face: Normocephalic, atraumatic. cp 16:45 Eyes: Periorbital structures: appear normal, Conjunctiva: normal, no exudate, no injection, Sclera: no appreciated abnormality, Lids and lashes: appear normal, bilaterally. 16:45 ENT: External ear(s): are unremarkable, Nose: is normal, Mouth: is normal, Posterior pharynx: Airway: no evidence of obstruction, patent. 16:45 Chest/axilla: Inspection: normal. 16:45 Cardiovascular: Rate: normal. 16:45 Respiratory: the patient does not display signs of respiratory distress, Respirations: normal, no use of accessory muscles, no retractions, no splinting, no tachypnea. 16:45 Abdomen/GI: Exam negative for discomfort, distension, guarding, Inspection: abdomen appears normal. 16:45 Musculoskeletal/extremity: Extremities: grossly normal except: noted in the dorsum of left foot and left heel: pain, tenderness, There is no evidence of decreased ROM, deformity, erythema, swelling, Perfusion: the extremity is normally perfused throughout, Sensation intact. Weight bearing: able to fully bear weight. Vital Signs: 15:57 BP 140 / 83; Pulse 91; Resp 16 S; Temp 98.2(TE); Pulse Ox 97% on R/A; Weight 136.08 kg aa5 (R); Height 5 ft. 10 in. (177.80 cm) (R); Pain 6/10; 15:57 Body Mass Index 43.05 (136.08 kg, 177.80 cm) aa5 Procedures: 18:30 Splinting: Splint applied to left foot using walking boot. applied by nurse. Examined cp by me, post splint application: neurovascular intact, Patient tolerated well. MDM: 16:00 Patient medically screened. cp 17:20 Data reviewed: vital signs, nurses notes, radiologic studies, plain films. cp 17:20 Test interpretation: by ED physician or midlevel provider: plain radiologic studies. 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 Response to treatment: the patient's symptoms have markedly improved after treatment. 08/04 16:34 Order name: Foot Left 3 View XRAY; Complete Time: 17:25 cp 08/04 17:25 Interpretation: Reviewed report. cp 08/04 17:10 Order name: Crutches; Complete Time: 18:35 cp 08/04 17:10 Order name: Walking boot; Complete Time: 18:35 cp Administered Medications: No medications were administered Disposition: 19:25 Co-signature as Attending Physician, Brina Wilkins MD. ma2 Disposition: 08/04/18 17:20 Discharged to Home. Impression: Pain in left foot. - Condition is Stable. - Discharge Instructions: Foot Pain. - Prescriptions for Ibuprofen 800 mg Oral Tablet - take 1 tablet by ORAL route every 8 hours As needed take with food; 30 tablet. - Work release form, Medication Reconciliation Form, Thank You Letter, Antibiotic Education, Prescription Opioid Use form. - Follow up: Kwaku Meza DPM; When: 1 week; Reason: pain continues. - Problem is new. - Symptoms have improved. Signatures: Dispatcher [employer] EDMarguerite Bryant RN RN aj Calderon, Audri, RN RN aa5 Jonathan Adames PA PA cp Alzahri, Mohammad, MD MD ma2 Corrections: (The following items were deleted from the chart) 18:35 17:20 08/04/2018 17:20 Discharged to Home. Impression: Pain in left foot. Condition is aj Stable. Forms are Medication Reconciliation Form, Thank You Letter, Antibiotic Education, Prescription Opioid Use. Follow up: Kwaku Meza; When: 1 week; Reason: pain continues. Problem is new. Symptoms have improved. cp 08/05 04:02 08/04 16:05 Constitutional: Negative for body aches, chills, fever, poor PO intake, cp cp 08/05 04:02 08/04 16:05 Eyes: Negative for injury, pain, redness, and discharge, cp cp 08/05 04:02 08/04 16:05 Cardiovascular: Negative for chest pain, palpitations, cp cp 08/05 04:02 02 16:05 Respiratory: Negative for cough, shortness of breath, wheezing, cp cp 08/05 04:02 02 16:05 Abdomen/GI: Negative for abdominal pain, nausea, vomiting, and diarrhea, cp cp 08/05 04:02 02 16:05 MS/extremity: Positive for pain, tenderness, of the dorsum of left foot and cp left heel, Negative for deformity, paresthesias, cp 08/05 04:02 02 16:05 Skin: Negative for cellulitis, rash, cp cp 08/05 04:02 02 16:05 Neuro: Negative for altered mental status, headache, numbness, weakness, cp cp 08/05 04:02 02 16:05 All other systems are negative, cp cp
--- NOTE | 2018-08-04 17:24 | ER ---
Nurse's Notes [facility] Name: Emilia Lora Age: 38 yrs Sex: Female : 1980 Arrival Date: 08/04/2018 Time: 15:47 Bed 10 Private MD: out of town, doctor Diagnosis: Pain in left foot Presentation: 08/04 15:55 Presenting complaint: Patient states: left foot pain that began 5 days ago. Pt reports aa5 pain is worse today. Transition of care: patient was not received from another setting of care. Onset of symptoms was July 2018. Risk Assessment: Do you want to hurt yourself or someone else? Patient reports no desire to harm self or others. Initial Sepsis Screen: Does the patient meet any 2 criteria? No. Patient's initial sepsis screen is negative. Does the patient have a suspected source of infection? No. Patient's initial sepsis screen is negative. Care prior to arrival: None. 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 - Social history:: Smoking status: Patient/guardian denies using tobacco. - Ebola Screening: : No symptoms or risks identified at this time. Screenin:08 Abuse screen: Denies threats or abuse. Denies injuries from another. Nutritional aj screening: No deficits noted. Tuberculosis screening: No symptoms or risk factors identified. Fall Risk None identified. Assessment: 16:08 General: Appears in no apparent distress. comfortable, Behavior is calm, cooperative, aj appropriate for age. Pain: Complains of pain in heel of right foot. Neuro: Level of Consciousness is awake, alert, obeys commands, Oriented to person, place, time, situation, Appropriate for age. Respiratory: Airway is patent Respiratory effort is even, unlabored, Respiratory pattern is regular, symmetrical. Derm: Skin is intact, is healthy with good turgor, Skin is pink, warm \T\ dry. normal. Musculoskeletal: Reports pain in heel of right foot. 18:29 Reassessment: Patient appears in no apparent distress at this time. No changes from aj previously documented assessment. Patient and/or family updated on plan of care and expected duration. Pain level reassessed. Patient is alert, oriented x 3, equal unlabored respirations, skin warm/dry/pink. Vital Signs: 15:57 BP 140 / 83; Pulse 91; Resp 16 S; Temp 98.2(TE); Pulse Ox 97% on R/A; Weight 136.08 kg aa5 (R); Height 5 ft. 10 in. (177.80 cm) (R); Pain 6/10; 15:57 Body Mass Index 43.05 (136.08 kg, 177.80 cm) aa5 ED Course: 15:47 Patient arrived in ED. mr 15:47 out of town, doctor is Private Physician. mr 15:55 Arm band placed on. aa5 15:56 Triage completed. aa5 15:59 Marguerite Viramontes, RN is Primary Nurse. aj 16:00 Jonathan Adames PA is PHCP. cp 16:00 Brina Wilkins MD is Attending Physician. cp 16:08 Patient has correct armband on for positive identification. aj 17:08 Foot Left 3 View XRAY In Process Unspecified. EDCO 17:19 Kwaku Meza DPM is Referral Physician. cp 18:29 No provider procedures requiring assistance completed. Patient did not have IV access aj during this emergency room visit. Crutch training done. walking boot to left foot. Administered Medications: No medications were administered Outcome: 17:20 Discharge ordered by . cp 18:29 Discharged to home ambulatory, with crutches. aj 18:29 Condition: good 18:29 Discharge instructions given to patient, Instructed on discharge instructions, follow up and referral plans. Demonstrated understanding of instructions, follow-up care, medications. 18:35 Patient left the ED. aj Signatures: Dispatcher [employer] EDMS Marguerite Viramontes, RN Yecenia Byers Audri, RN RN aa5 Jonathan Adames PA PA cp
== END 2018-08-04 18:35 | disposition home or self-care (01) ==
LOC: ER 15:45
DX: M79.672 Pain in left foot (principal); Z88.1 Allergy status to other antibiotic agents; Z88.3 Allergy status to other anti-infective agents; Z88.8 Allergy status to other drugs, medicaments and biological substances
CPT/HCPCS: 99283

== ENCOUNTER 2018-10-05 15:28 | Emergency (ER) | payer SELFPAY ==
--- OUTSIDE RECORDS SUMMARY | 2018-10-05 15:30 | XMS REPORT | Clinical Summary ---
:1980 Author Organization [facility] Address [address] [place] [address] Care Team Providers Name Role Phone Amanda [...] Active 20 MG mg total) by mouth 9 019 tabletIndications: 2 (two) times a Cervical day for 90 days. radiculopathy, Myalgia gabapentin Take 1 tablet (800 90 tablet 2 Active (NEURONTIN) 800 mg mg total) by mouth 9 019 tablet 3 (three) times a day for 90 days. golimumab (SIMPONI) Inject 50 mg under 3 Syringe 0 Active 50 mg/0.5 mL pen the skin every 28 9 019 injector days for 90 days. [facility] 32779-430-72, Lot [id number],expires 01/09 azaTHIOprine Take 3 tablets 90 tablet 1 Active (IMURAN) 50 mg (150 mg total) by 9 019 tablet mouth daily for 180 days. predniSONE Take 1 tablet (5 60 tablet 1 Active (DELTASONE) 5 mg mg total) by mouth 9 019 tabletIndications: 2 (two) times a Myalgia day for 60 days. gabapentin Take 1 tablet (600 90 tablet (NEURONTIN) 600 mg mg total) by mouth 7 018 tabletIndications: 3 (three) times a Inflammatory day. polyarthritis (HCC), Enteropathic arthritis, Chronic midline low back pain without sciatica, Cervical radiculopathy, Encounter for monitoring azathioprine therapy, Ulcerative colitis with complication, unspecified location (HCC), Neuropathy, Vitamin D insufficiency, Weakness baclofen (LIORESAL) TAKE 1 TABLET BY 90 [...] 019 tablet mouth daily for 30 days. baclofen (LIORESAL) Take 1 tablet (20 180 tablet 0 Discontinued 20 MG mg total) by mouth 8 019 tabletIndications: 2 (two) times a Cervical day for 90 days. radiculopathy, Myalgia predniSONE Take 1-3 tablets 90 tablet 0 Discontinued (DELTASONE) 5 mg (5-15 mg total) by 8 019 tablet mouth daily for 30 days. gabapentin Take 1 tablet (600 90 tablet 10 Discontinued (NEURONTIN) 600 mg mg total) by mouth 8 019 tablet 3 (three) times a day. azaTHIOprine Take 3 tablets 90 tablet 0 [...] days. azaTHIOprine TAKE THREE TABLETS 90 tablet 1 Discontinued (IMURAN) 50 mg BY MOUTH DAILY 9 019 tablet predniSONE Take 1 tablet (5 60 tablet 1 Discontinued (DELTASONE) 5 mg mg total) by mouth 9 019 tabletIndications: 2 (two) times a Myalgia day for 60 days. Hospital, Clinic, or Other Ordered Dose Route Frequency Start Date End Date Status Facility Administered Medication methylPREDNISolone acetate 80 mg IM once 09/10/2018 09/10/2018 Ended (DEPO-MEDROL) injection 80 mgIndications: Myalgia Active Problems Problem Noted Date Enteropathic arthritis [...] Encounters Date Type Specialty Care Team Description 09/29/2018 Refill Rheumatology Mary Mtz MD Myalgia 09/10/2018 Clinical Support Rheumatology 09/10/2018 Refill Rheumatology Kerrie Anderson MA 09/10/2018 Orders Only Rheumatology Kerrie Anderson, Myalgia (Primary Dx) MA 09/09/2018 Refill Rheumatology Kerrie Anderson Myalgia (Primary Dx) MA 09/08/2018 Refill Rheumatology Mary Mtz MD 09/01/2018 Refill Rheumatology Mary Mtz MD 08/30/2018 Refill Rheumatology Mary Mtz MD 08/28/2018 Refill Rheumatology Mary Mtz MD 08/25/2018 Orders Only Rheumatology Mary Mtz MD 08/15/2018 Refill Rheumatology Mary Mtz MD Cervical radiculopathy; Myalgia 08/01/2018 Refill Rheumatology Mary Mtz MD 07/31/2018 Refill Rheumatology Mary Mtz MD 07/31/2018 Refill Rheumatology Mary Mtz MD 07/29/2018 Refill Rheumatology Mary Mtz MD 07/01/2018 Refill Rheumatology Mary Mtz MD 06/30/2018 Refill Rheumatology Mary Mtz MD 06/29/2018 Refill Rheumatology Mary Mtz MD 05/23/2018 Refill Rheumatology Mary Mtz MD Cervical radiculopathy; Myalgia 05/20/2018 Refill Rheumatology Mary Mtz MD 04/30/2018 Refill Rheumatology Mary Mtz MD [...] Gonzalez MD 10/21/2017 Orders Only Rheumatology Kerrie Anderson, Encounter for therapeutic drug level monitoring (Primary Dx); MA Inflammatory polyarthropathy; Moderate chronic ulcerative colitis with complication; Weakness; Vitamin D insufficiency; Encounter for long-term (current) use of high-risk medication 10/16/2017 Telephone Pulmonology Odessa Lewis after 10/04/2017 Immunizations Name Dates Previously Given Next Due [...] Grandfather Mahnaz Parks's esophagus Maternal Grandmother Bates [place] Cancer Maternal Grandmother Bates Sharla Terminal liver cancer GERD Maternal Grandmother Bates [place] Liver cancer Maternal Grandmother Bates Sharla Ulcerative colitis Maternal Grandmother Bates [place] Arthritis Mother Kiarra Vision loss Mother Kiarra Psuedo-tumor cerebri Alcohol abuse Sister Ena Depression Sister Ena Irritable bowel syndrome Sister Ena Learning disabilities Sister Ena ADD Mental illness Sister Ena PTSD, anxiety Relation Name Status Comments Brother Jeronimo Brother Dave Father Norberto Maternal Grandfather Mahnaz Maternal Grandmother Bates [place] Mother Kiarra Sister Ena Social History Tobacco [...] Comments CERVICAL CANCER SCREENING 2001 INFLUENZA VACCINE 01/22/2019 04/17/2016, 04/13/2015 Results Not on fileafter 10/04/2017 Advance Directives Patient has advance care planning documents on file. For more information, please contact:[place] [address]
--- OUTSIDE RECORDS SUMMARY | 2018-10-05 15:30 | XMS REPORT | Clinical Summary ---
:1980 Author Organization [facility] Address [address] [place] [address] Care Team Providers Name Role Phone Ana [...] Not on file Results Not on fileafter 10/04/2017 Insurance Payer Benefit Plan / Subscriber ID Type Phone Address Group BLUE CROSS/BLUE BCBS PPO POS EPO xxxxxxxxxxxx PPO [phone] [address] [place] [address]
[2018-10-05] MEDS ORDERED: NA CHLORIDE 0.9% 1,000 ML ONE (17:18)
[2018-10-05 17:38] LABS: Absolute Lymphocytes (CBC) 1.6 K/uL (0.7-4.9); Absolute Monocytes 0.8 K/uL (0.1-1.3); Absolute Neutrophil 7.6 K/uL (1.8-8.0); Basophils % 0.7 % (0-1.3); Eosinophils % 0.1 % (0-4.4); Hematocrit 44.5 % (36.0-45.0); MPV 7.4 fL (7.6-11.3); Monocytes % 7.7 % (3.3-12.3); RBC Red Blood Cell Count 4.76 M/uL (3.86-4.86)
[2018-10-05] MEDS ORDERED: FUROSEMIDE 20 MG/ 2ML VIAL ONE (17:48)
[2018-10-05 18:01] LABS: Albumin 3.8 g/dL (3.4-5.0); Bilirubin Direct 0.1 mg/dL (0-0.2); Bilirubin Total 0.4 mg/dL (0.2-1.0); Potassium 3.8 mmol/L (3.5-5.1); Protein, Total 7.9 g/dL (6.4-8.2)
[2018-10-05 18:08] LABS: Urine Blood 2+ (NEG); Urine Glucose NEGATIVE (NEG); Urine Protein TRACE (NEG); Urine Specific Gravity 1.025 (1.005-1.030)
--- NOTE | 2018-10-05 18:52 | ER ---
Nurse's Notes [facility] Name: Emilia Lora Age: 38 yrs Sex: Female : 1980 Arrival Date: 10/05/2018 Time: 15:52 Bed 13 Private MD: Diagnosis: Dehydration;Diarrhea, unspecified Presentation: 10/05 16:03 Presenting complaint: Patient states: headache and abd cramping that began Saturday. Pt aa5 states "I am also having back pain, nausea, and diarrhea". Pt states "I work out in the head so I think I am dehydrated". Transition of care: patient was not received from another setting of care. 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 - Social history:: Smoking status: Patient/guardian denies using tobacco. - Ebola Screening: : No symptoms or risks identified at this time. Screenin:43 Abuse screen: Denies threats or abuse. Denies injuries from another. Nutritional jl7 screening: No deficits noted. Tuberculosis screening: No symptoms or risk factors identified. Fall Risk IV access (20 points). Total Carmichael Fall Scale indicates No Risk (0-24 pts). Assessment: 17:20 General: Appears in no apparent distress. uncomfortable, Behavior is calm, cooperative, jl7 appropriate for age. Pain: Complains of pain in abdomen diffusely Pain currently is 7 out of 10 on a pain scale. Neuro: Level of Consciousness is awake, alert, obeys commands, Oriented to person, place, time, situation. Cardiovascular: Patient's skin is warm and dry. Respiratory: Airway is patent Respiratory effort is even, unlabored, Respiratory pattern is regular, symmetrical. GI: Abdomen is round non-distended. : Urine is clear. Derm: Skin is pink, warm \\T\\ dry. 19:20 Reassessment: Patient appears in no apparent distress at this time. Patient is alert, rr5 oriented x 3, equal unlabored respirations, skin warm/dry/pink. discharge instruction given and explained without complaints made. Patient states feeling better. Patient states symptoms have improved. Vital Signs: 16:05 BP 124 / 78; Pulse 88; Resp 16 S; Temp 99.1(TE); Pulse Ox 97% on R/A; Weight 131.54 kg aa5 (R); Height 5 ft. 9 in. (175.26 cm) (R); Pain 5/10; 19:15 BP 115 / 70; Pulse 85; Resp 17; Pulse Ox 99% on R/A; Pain 0/10; rr5 16:05 Body Mass Index 42.83 (131.54 kg, 175.26 cm) aa5 ED Course: 15:52 Patient arrived in ED. aa5 16:04 Triage completed. aa5 16:04 Arm band placed on. aa5 16:37 Juan Jose Crawford PA is PHCP. jr8 16:38 Jonathan Love MD is Attending Physician. jr8 16:44 Juanita Rebolledo RN is Primary Nurse. jl7 17:43 Patient has correct armband on for positive identification. Bed in low position. Call jl7 light in reach. Side rails up X 1. Pulse ox on. NIBP on. 17:43 Initial lab(s) drawn, by sc, sent to lab. Urine collected: clean catch specimen, clear. jl7 Inserted saline lock: 22 gauge in left antecubital area, using aseptic technique. Blood collected. Administered Medications: 17:41 Drug: NS 0.9% 1000 ml Route: IV; Rate: 1000 ml; Site: left antecubital; jl7 19:00 Follow up: Response: No adverse reaction; IV Status: Completed infusion; IV Intake: rr5 1000ml Intake: 19:00 IV: 1000ml; Total: 1000ml. rr5 Outcome: 18:50 Discharge ordered by . jr8 19:25 Discharged to home ambulatory. rr5 19:25 Condition: stable 19:25 Discharge instructions given to patient, Instructed on discharge instructions, follow up and referral plans. medication usage, Demonstrated understanding of instructions, follow-up care, medications, Prescriptions given X 1. 19:26 Patient left the ED. rr5 Signatures: Inge Horvath, RN RN aa5 Juan Jose Crawford PA PA jr8 Juanita Rebolledo, RN RN jl7 Bob Cardoza RN RN rr5
--- NOTE | 2018-10-05 18:52 | EDPHYS ---
Physician Documentation [facility] Name: Emilia Lora Age: 38 yrs Sex: Female : 1980 Arrival Date: 10/05/2018 Time: 15:52 Bed 13 Private MD: DEVON Physician Jonathan Love HPI: 10/05 17:10 This 38 yrs old Female presents to ER via Ambulatory with complaints of jr8 Nausea, Diarrhea, Abdominal Pain. 17:10 The patient presents to the emergency department with nausea, vomiting, diarrhea, jr8 abdominal pain, of the abdomen diffusely, described as crampy, and does not radiate. Onset: The symptoms/episode began/occurred gradually, 3 day(s) ago. Possible causes: unknown. The symptoms are aggravated by food , The symptoms are alleviated by nothing. Associated signs and symptoms: The patient has no apparent associated signs or symptoms. Severity of symptoms: At their worst the symptoms were moderate in the emergency department the symptoms are unchanged. It is unknown whether or not the patient has had similar symptoms in the past. The patient has not recently seen a physician. Concerned that she is dehydrated from all the diarrhea she has had. 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 - Social history:: Smoking status: Patient/guardian denies using tobacco. - Ebola Screening: : No symptoms or risks identified at this time. ROS: 17:10 Eyes: Negative for injury, pain, redness, and discharge, ENT: Negative for injury, jr8 pain, and discharge, Neck: Negative for injury, pain, and swelling, Cardiovascular: Negative for chest pain, palpitations, and edema, Respiratory: Negative for shortness of breath, cough, wheezing, and pleuritic chest pain, Back: Negative for injury and pain, MS/Extremity: Negative for injury and deformity, Skin: Negative for injury, rash, and discoloration, Neuro: Negative for headache, weakness, numbness, tingling, and seizure. 17:10 Abdomen/GI: Positive for nausea, diarrhea, abdominal cramps, Negative for abdominal distension, hematemesis, black/tarry stool, rectal bleeding, bowel incontinence, flatulence. Exam: 17:10 Eyes: Pupils equal round and reactive to light, extra-ocular motions intact. Lids and jr8 lashes normal. Conjunctiva and sclera are non-icteric and not injected. Cornea within normal limits. Periorbital areas with no swelling, redness, or edema. ENT: Nares patent. No nasal discharge, no septal abnormalities noted. Tympanic membranes are normal and external auditory canals are clear. Oropharynx with no redness, swelling, or masses, exudates, or evidence of obstruction, uvula midline. Mucous membranes moist. Neck: Trachea midline, no thyromegaly or masses palpated, and no cervical lymphadenopathy. Supple, full range of motion without nuchal rigidity, or vertebral point tenderness. No Meningismus. Cardiovascular: Regular rate and rhythm with a normal S1 and S2. No gallops, murmurs, or rubs. Normal PMI, no JVD. No pulse deficits. Respiratory: Lungs have equal breath sounds bilaterally, clear to auscultation and percussion. No rales, rhonchi or wheezes noted. No increased work of breathing, no retractions or nasal flaring. Back: No spinal tenderness. No costovertebral tenderness. Full range of motion. Skin: Warm, dry with normal turgor. Normal color with no rashes, no lesions, and no evidence of cellulitis. MS/ Extremity: Pulses equal, no cyanosis. Neurovascular intact. Full, normal range of motion. Neuro: Awake and alert, GCS 15, oriented to person, place, time, and situation. Cranial nerves II-XII grossly intact. Motor strength 5/5 in all extremities. Sensory grossly intact. Cerebellar exam normal. Normal gait. 17:10 Abdomen/GI: Inspection: obese Bowel sounds: active, all quadrants, Palpation: abdomen is soft and non-tender, in all quadrants, mass, is not appreciated, rebound tenderness, is not appreciated, voluntary guarding, is not appreciated, involuntary guarding, is not appreciated, no appreciated organomegaly, Indicators: McBurney's point is not tender, Delarosa's sign is negative, Rovsing's sign is negative, Liver: tenderness, is not appreciated. Vital Signs: 16:05 BP 124 / 78; Pulse 88; Resp 16 S; Temp 99.1(TE); Pulse Ox 97% on R/A; Weight 131.54 kg aa5 (R); Height 5 ft. 9 in. (175.26 cm) (R); Pain 5/10; 19:15 BP 115 / 70; Pulse 85; Resp 17; Pulse Ox 99% on R/A; Pain 0/10; rr5 16:05 Body Mass Index 42.83 (131.54 kg, 175.26 cm) aa5 MDM: 16:38 Patient medically screened. evelyne 18:50 Data reviewed: vital signs, nurses notes, lab test result(s), and as a result, I will jr8 discharge patient. Data interpreted: Pulse oximetry: on room air is 97 %. Interpretation: normal. Counseling: I had a detailed discussion with the patient and/or guardian regarding: the historical points, exam findings, and any diagnostic results supporting the discharge/admit diagnosis, lab results, the need for outpatient follow up, a family practitioner, to return to the emergency department if symptoms worsen or persist or if there are any questions or concerns that arise at home. Response to treatment: the patient's symptoms have markedly improved after treatment, patient is well hydrated. 10/05 17:03 Order name: Basic Metabolic Panel; Complete Time: 18:03 [facility] 10/05 17:03 Order name: CBC with Diff; Complete Time: 18:03 [facility] 10/05 17:03 Order name: Creatinine for Radiology; Complete Time: 18:03 [facility] 10/05 17:03 Order name: Hepatic Function; Complete Time: 18:03 [facility] 10/05 17:03 Order name: Lipase; Complete Time: 18:03 [facility] 10/05 17:55 Order name: Urine Dipstick--Ancillary (enter results); Complete Time: 18:12 eb 10/05 17:03 Order name: IV Saline Lock; Complete Time: 17:42 [facility] 10/05 17:03 Order name: Labs collected and sent; Complete Time: 17:42 [facility] 10/05 17:55 Order name: Urine --Ancillary (enter results); Complete Time: 18:12 eb Administered Medications: 17:41 Drug: NS 0.9% 1000 ml Route: IV; Rate: 1000 ml; Site: left antecubital; jl7 19:00 Follow up: Response: No adverse reaction; IV Status: Completed infusion; IV Intake: rr5 1000ml Disposition: 10/06 09:00 Co-signature as Attending Physician, Jonathan Love MD I agree with the assessment and evelyne plan of care. Disposition: 10/05/18 18:50 Discharged to Home. Impression: Dehydration, Diarrhea, unspecified. - Condition is Stable. - Discharge Instructions: Dehydration, Adult, Diarrhea, Adult. - Prescriptions for Zofran 4 mg Oral Tablet - take 1 tablet by ORAL route every 12 hours As needed; 20 tablet. - Medication Reconciliation Form, Thank You Letter, Antibiotic Education, Prescription Opioid Use form. - Follow up: Private Physician; When: 2 - 3 days; Reason: Recheck today's complaints, Continuance of care, Re-evaluation by your physician. - Problem is new. - Symptoms have improved. Signatures: Dispatcher [employer] Jonathan Salmeron MD MD cha Calderon, Audri, RN RN aa5 Juan Jose Crawford PA PA jr8 Juanita Rebolledo RN RN jl7 Bob Cardoza, RN RN rr5 Corrections: (The following items were deleted from the chart) 10/05 19:26 18:50 10/05/2018 18:50 Discharged to Home. Impression: Dehydration; Diarrhea, rr5 unspecified. Condition is Stable. Forms are Medication Reconciliation Form, Thank You Letter, Antibiotic Education, Prescription Opioid Use. Follow up: Private Physician; When: 2 - 3 days; Reason: Recheck today's complaints, Continuance of care, Re-evaluation by your physician. Problem is new. Symptoms have improved. jr8
[2018-10-05 20:18] VITALS: BP 124/78; TEMP 99.1; O2SAT 97
== END 2018-10-05 19:26 | disposition home or self-care (01) ==
LOC: ER 15:28
DX: E86.0 Dehydration (principal); R19.7 Diarrhea, unspecified; N18.3 Chronic kidney disease, stage 3 (moderate); Z88.1 Allergy status to other antibiotic agents
CPT/HCPCS: 36415; 80048; 80076; 81003; 81025; 83690; 85025; 96360; 99284; J1940; J7030

== ENCOUNTER 2018-10-23 09:49 | Emergency (ER) | payer SELFPAY ==
--- OUTSIDE RECORDS SUMMARY | 2018-10-23 09:55 | XMS REPORT | Clinical Summary ---
:1980 Author Organization [facility] Address [address] [place] [address] Care Team Providers Name Role Phone Ana [...] Not on file Results Not on fileafter 10/22/2017 Insurance Payer Benefit Plan / Subscriber ID Type Phone Address Group BLUE CROSS/BLUE BCBS PPO POS EPO xxxxxxxxxxxx PPO [phone] [address] [place] [address]
--- OUTSIDE RECORDS SUMMARY | 2018-10-23 09:55 | XMS REPORT | Clinical Summary ---
:1980 Author Organization [facility] Address [address] [place] [address] Care Team Providers Name Role Phone Amanda [...] sciatica laterality unspecified, unspecified back pain laterality golimumab (SIMPONI) Inject 50 mg under 3 Syringe 0 Active 50 mg/0.5 mL pen the skin every 28 9 019 injector days for 90 days. [facility] 18706-279-95, Lot [id number],expires 01/09 azaTHIOprine Take 3 tablets 90 tablet 1 Active (IMURAN) 50 mg (150 mg total) by 9 019 tablet mouth daily for 180 days. predniSONE Take 1 tablet (5 60 tablet 1 Active (DELTASONE) 5 mg mg total) by mouth 9 019 tabletIndications: 2 (two) times a Myalgia day for 60 days. baclofen (LIORESAL) Take 1 tablet (20 180 tablet 0 Active 20 MG mg total) by mouth 9 019 tabletIndications: 2 (two) times a Cervical day for 90 days. radiculopathy, Myalgia gabapentin Take 1 tablet (800 90 tablet 2 04/22/201 07/21/2 Active (NEURONTIN) 800 mg mg total) by mouth 9 019 tablet 3 (three) times a day for 90 days. gabapentin Take 1 tablet (600 90 [...] Discontinued 20 MG mg total) by mouth 9 019 tabletIndications: 2 (two) times a Cervical day for 90 days. radiculopathy, Myalgia gabapentin Take 1 tablet (800 90 tablet 2 Discontinued (NEURONTIN) 800 mg mg total) by mouth 9 019 tablet 3 (three) times a day for 90 days. azaTHIOprine TAKE THREE TABLETS 90 tablet [...] Encounters Date Type Specialty Care Team Description 10/13/2018 Orders Only Rheumatology Mary Mtz, Cervical radiculopathy; MD Mayer 10/09/2018 Refill Rheumatology Mary Mtz Cervical radiculopathy; MD Mayer 09/29/2018 Refill Rheumatology Mary Mtz Myalgia 09/10/2018 Clinical Support Rheumatology 09/10/2018 Refill Rheumatology Kerrie Anderson MA 09/10/2018 Orders Only Rheumatology Monica, Myalgia (Primary Dx) LOVE Sy 09/09/2018 Refill Rheumatology Monica Myalgia (Primary Dx) LOVE Sy 09/08/2018 Refill Rheumatology Mary Mtz MD 09/01/2018 Refill Rheumatology Mary Mtz MD 08/30/2018 Refill Rheumatology Mary Mtz MD 08/28/2018 Refill Rheumatology Mary Mtz MD 08/25/2018 Orders Only Rheumatology Mary Mtz MD 08/15/2018 Refill Rheumatology NyMary garcia, Cervical radiculopathy; MD Mayer 08/01/2018 Refill Rheumatology Mary Mtz MD 07/31/2018 Refill Rheumatology NyMary garcia MD 07/31/2018 Refill Rheumatology Mary Mtz MD 07/29/2018 Refill Rheumatology Mary Mtz MD 07/01/2018 Refill Rheumatology NyMary garcia MD 06/30/2018 Refill Rheumatology NyMary garcia MD 06/29/2018 Refill Rheumatology NyMary garcia MD 05/23/2018 Refill Rheumatology NyMary garcia, Cervical radiculopathy; MD Mayer 05/20/2018 Refill Rheumatology Mary Mtz MD 04/30/2018 Refill Rheumatology Mary Mtz MD 04/18/2018 Refill Rheumatology NyMary garcia MD 04/17/2018 Refill Rheumatology NyMary garcia MD 04/02/2018 Refill Rheumatology NyMary garcia MD 03/05/2018 Orders Only Rheumatology Mary Mtz MD 02/25/2018 Orders Only Rheumatology NyMary garcia, Cervical radiculopathy ( Primary Dx); MD Mayer 02/05/2018 Refill Rheumatology Mary Mtz, Inflammatory polyarthritis; Enteropathic arthritis; Chronic midline low [...] back pain laterality 01/30/2018 Refill Rheumatology Mary Mtz, Inflammatory polyarthropathy; Enteropathic arthritis; Moderate chronic ulcerative colitis with complication; Acute bilateral low back pain with sciatica, sciatica laterality unspecified; Chronic low back pain with sciatica, sciatica laterality unspecified, unspecified back pain laterality 01/30/2018 Refill Rheumatology Mary Mtz MD 12/30/2017 Telephone Internal Medicine Amanda Gonzalez MD after 10/22/2017 Immunizations Name Dates Previously Given Next Due [...] Grandmother Bates Sharla Cancer Maternal Grandmother Bates Sharla Terminal liver cancer GERD Maternal Grandmother Bates [place] Liver cancer Maternal Grandmother Bates Sharla Ulcerative colitis Maternal Grandmother Bates Sharla Arthritis Mother Kiarra Vision loss Mother Kiarra Psuedo-tumor cerebri Alcohol abuse Sister Ena Depression Sister Ena Irritable bowel syndrome Sister Ena Learning disabilities Sister Ena ADD Mental illness Sister Ena PTSD, anxiety Relation Name Status Comments Brother Jeronimo Brother Dave Father Norberto Maternal Grandfather Mahnaz Maternal Grandmother Bates [place] Mother Kiarra Sister Ena Social History Tobacco [...] 01/22/2019 04/17/2016, 04/13/2015 Results Not on fileafter 10/22/2017 Advance Directives Patient has advance care planning documents on file. For more information, please contact:[place] [address]
--- NOTE | 2018-10-23 10:37 | RAD REPORT ---
EXAM DESCRIPTION: RAD - Ankle Left 3 View - 10/23/2018 10:18 am CLINICAL HISTORY: PAIN Twisting injury to the ankle. COMPARISON: No comparisons FINDINGS: Moderate soft tissue swelling is seen adjacent to the lateral malleolus. No fracture, disl ocation or aggressive marrow pattern. Small plantar calcaneal spur.
--- NOTE | 2018-10-23 10:57 | EDPHYS ---
Physician Documentation [facility] Name: mEilia Lora Age: 38 yrs Sex: Female : 1980 Arrival Date: 10/23/2018 Time: 09:54 Bed 14 Private MD: ED Physician Karsten Vernon HPI: 10/23 10:54 This 38 yrs old Female presents to ER via EMS with complaints of Ankle Injury. kb 10:54 The patient presents with an injury, pain, that is acute, swelling, tenderness. The kb complaints affect the left ankle. Onset: The symptoms/episode began/occurred today. Context: The problem was sustained at home, resulted from the patient falling, while walking, The patient is unable to bear weight. The patient is not able to ambulate. Associated signs and symptoms: Pertinent positives: swelling, Pertinent negatives: calf tenderness, fever, nausea, numbness, rash, tingling, vomiting, warmth, weakness. Modifying factors: The symptoms are alleviated by nothing, the symptoms are aggravated by weight bearing. Severity of symptoms: At their worst the symptoms were moderate, in the emergency department the symptoms are unchanged. The patient has not experienced similar symptoms in the past. The patient has not recently seen a physician. Pt reports she fell yesterday and had some left ankle pain, but was able to ambulate. Today twisted ankle while walking and now cannot walk on it. . 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: 09:55 LMP N/A - control method bp Historical: - Allergies: 10:28 Cipro; bp 10:28 Keflex; bp 10:28 Levofloxacin; bp - Home Meds: 10:28 baclofen 20 mg Oral tab 1 tab 3 times per day [Active]; Wellbutrin 300 mg Oral daily bp [Active]; Adderall XR Oral [Active]; trazodone 50 mg Oral tab 1 tab 2 times per day [Active]; Propranolol Oral [Active]; Imuran 50 mg Oral tab four times a day [Active]; gabapentin oral oral [Active]; diclofenac oral oral [Active]; Prednisone Oral [Active]; - PMHx: 10:28 ulcertive colitis; Rheumatoid Arthritis; CKDstage II; PCOS, Depression, Parks's bp Esophagus, Asthma, endometrios; - Immunization history:: Adult Immunizations up to date. - Social history:: Smoking status: Patient/guardian denies using tobacco. - Ebola Screening: : No symptoms or risks identified at this time. ROS: 10:56 Constitutional: Negative for fever, chills, and weight loss, Cardiovascular: Negative kb for chest pain, palpitations, and edema, Respiratory: Negative for shortness of breath, cough, wheezing, and pleuritic chest pain, Abdomen/GI: Negative for abdominal pain, nausea, vomiting, diarrhea, and constipation, Skin: Negative for injury, rash, and discoloration, Neuro: Negative for headache, weakness, numbness, tingling, and seizure. 10:56 MS/extremity: Positive for injury or acute deformity, decreased range of motion, pain, swelling, tenderness, of the left lateral ankle. Exam: 10:56 Constitutional: This is a well developed, well nourished patient who is awake, alert, kb and in no acute distress. Head/Face: Normocephalic, atraumatic. ENT: Nares patent. No nasal discharge, no septal abnormalities noted. Tympanic membranes are normal and external auditory canals are clear. Oropharynx with no redness, swelling, or masses, exudates, or evidence of obstruction, uvula midline. Mucous membranes moist. Neck: Trachea midline, no thyromegaly or masses palpated, and no cervical lymphadenopathy. Supple, full range of motion without nuchal rigidity, or vertebral point tenderness. No Meningismus. Chest/axilla: Normal chest wall appearance and motion. Nontender with no deformity. No lesions are appreciated. Cardiovascular: Regular rate and rhythm with a normal S1 and S2. No gallops, murmurs, or rubs. Normal PMI, no JVD. No pulse deficits. Respiratory: Lungs have equal breath sounds bilaterally, clear to auscultation and percussion. No rales, rhonchi or wheezes noted. No increased work of breathing, no retractions or nasal flaring. Abdomen/GI: Soft, non-tender, with normal bowel sounds. No distension or tympany. No guarding or rebound. No evidence of tenderness throughout. Skin: Warm, dry with normal turgor. Normal color with no rashes, no lesions, and no evidence of cellulitis. Neuro: Awake and alert, GCS 15, oriented to person, place, time, and situation. Cranial nerves II-XII grossly intact. Motor strength 5/5 in all extremities. Sensory grossly intact. Cerebellar exam normal. Normal gait. 10:56 Musculoskeletal/extremity: Extremities: grossly normal except: noted in the left lateral ankle: decreased ROM, pain, swelling, tenderness, ROM: intact in all extremities, Circulation is intact in all extremities. Sensation intact. Weight bearing: is unable to bear weight. Vital Signs: 09:55 BP 133 / 83; Pulse 86; Resp 16; Temp 98.7; Pulse Ox 98% ; Weight 136.08 kg; Height 5 bp ft. 9 in. (175.26 cm); 11:31 BP 127 / 79; Pulse 85; Resp 16; Temp 98.5; Pulse Ox 99% ; bp 09:55 Body Mass Index 44.30 (136.08 kg, 175.26 cm) bp MDM: 09:55 Patient medically screened. kb 10:55 Data reviewed: vital signs, nurses notes. Data interpreted: Pulse oximetry: on room air kb is 98 %. Interpretation: normal. Counseling: I had a detailed discussion with the patient and/or guardian regarding: the historical points, exam findings, and any diagnostic results supporting the discharge/admit diagnosis, radiology results, the need for outpatient follow up, a family practitioner, to return to the emergency department if symptoms worsen or persist or if there are any questions or concerns that arise at home. 10/23 09:54 Order name: Ankle Left 3 View XRAY; Complete Time: 10:53 kb 10/23 10:57 Order name: Gerald Wrap; Complete Time: 11:30 kb 10/23 10:57 Order name: Crutches; Complete Time: 11:31 kb Administered Medications: No medications were administered Disposition: 16:59 Co-signature as Attending Physician, Karsten Vernon MD. rn Disposition: 10/23/18 10:57 Discharged to Home. Impression: Sprain of unspecified ligament of left ankle. - Condition is Stable. - Discharge Instructions: Ankle Sprain, [id number]. - Prescriptions for Diclofenac Sodium 75 mg Oral Tablet, Delayed Release (E.C.) - take 1 tablet by ORAL route 2 times per day As needed; 30 tablet. - Medication Reconciliation Form, Thank You Letter, Antibiotic Education, Prescription Opioid Use form. - Follow up: Emergency Department; When: As needed; Reason: Worsening of condition. Follow up: Private Physician; When: 2 - 3 days; Reason: Recheck today's complaints, Continuance of care, Re-evaluation by your physician. Signatures: Dispatcher [employer] EDMonica Cuellar, MANAGER PRODUCT MARKETING-C MANAGER PRODUCT MARKETING-Tawandab Karsten Vernon MD MD rn Peltier, Brian, RN RN bp Corrections: (The following items were deleted from the chart) 11:33 10:57 10/23/2018 10:57 Discharged to Home. Impression: Sprain of unspecified ligament bp of left ankle. Condition is Stable. Forms are Medication Reconciliation Form, Thank You Letter, Antibiotic Education, Prescription Opioid Use. Follow up: Emergency Department; When: As needed; Reason: Worsening of condition. Follow up: Private Physician; When: 2 - 3 days; Reason: Recheck today's complaints, Continuance of care, Re-evaluation by your physician. kb
--- NOTE | 2018-10-23 10:57 | ER ---
Nurse's Notes [facility] Name: Emilia Lora Age: 38 yrs Sex: Female : 1980 Arrival Date: 10/23/2018 Time: 09:54 Bed 14 Private MD: Diagnosis: Sprain of unspecified ligament of left ankle Presentation: 10/23 09:55 Presenting complaint: EMS states: ROLLED HER ANKLE THIS MORNING. Transition of care: bp patient was not received from another setting of care. Onset of symptoms was October 23, 2018 at 09:30. Risk Assessment: Do you want to hurt yourself or someone else? Patient reports no desire to harm self or others. Initial Sepsis Screen: Does the patient meet any 2 criteria? No. Patient's initial sepsis screen is negative. Does the patient have a suspected source of infection? No. Patient's initial sepsis screen is negative. Care prior to arrival: Splint applied. 09:55 Method Of Arrival: EMS: [facility] bp 09:55 Acuity: VINITA 3 bp Triage Assessment: 09:55 General: Appears in no apparent distress. comfortable, obese, Behavior is cooperative, bp appropriate for age, anxious. Pain: Complains of pain in left lateral ankle. EENT: No deficits noted. Neuro: Level of Consciousness is awake, alert, obeys commands, Oriented to person, place, time, situation, Appropriate for age. Cardiovascular: No deficits noted. Respiratory: Airway is patent Respiratory effort is even, unlabored, Respiratory pattern is regular, symmetrical. GI: No signs and/or symptoms were reported involving the gastrointestinal system. : No signs and/or symptoms were reported regarding the genitourinary system. Derm: No deficits noted. Musculoskeletal: Swelling present in left lateral ankle. 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: 09:55 LMP N/A - control method bp Historical: - Allergies: 10:28 Cipro; bp 10:28 Keflex; bp 10:28 Levofloxacin; bp - Home Meds: 10:28 baclofen 20 mg Oral tab 1 tab 3 times per day [Active]; Wellbutrin 300 mg Oral daily bp [Active]; Adderall XR Oral [Active]; trazodone 50 mg Oral tab 1 tab 2 times per day [Active]; Propranolol Oral [Active]; Imuran 50 mg Oral tab four times a day [Active]; gabapentin oral oral [Active]; diclofenac oral oral [Active]; Prednisone Oral [Active]; - PMHx: 10:28 ulcertive colitis; Rheumatoid Arthritis; CKDstage II; PCOS, Depression, Parks's bp Esophagus, Asthma, endometrios; - Immunization history:: Adult Immunizations up to date. - Social history:: Smoking status: Patient/guardian denies using tobacco. - Ebola Screening: : No symptoms or risks identified at this time. Screenin:23 Abuse screen: Denies threats or abuse. Denies injuries from another. Nutritional bp screening: No deficits noted. Tuberculosis screening: No symptoms or risk factors identified. Fall Risk No fall in past 12 months (0 pts). No secondary diagnosis (0 pts). No IV (0 pts). Ambulatory Aid- None/Bed Rest/Nurse Assist (0 pts). Gait- Weak (10 pts.). Mental Status- Oriented to own ability (0 pts). Total Carmichael Fall Scale indicates No Risk (0-24 pts). Assessment: 09:55 General: SEE TRIAGE NOTE. bp 11:32 Reassessment: PT D/C HOME WITH FAMILY VIA W/C, DX WITH ANKLE SPRAIN. bp Vital Signs: 09:55 BP 133 / 83; Pulse 86; Resp 16; Temp 98.7; Pulse Ox 98% ; Weight 136.08 kg; Height 5 bp ft. 9 in. (175.26 cm); 11:31 BP 127 / 79; Pulse 85; Resp 16; Temp 98.5; Pulse Ox 99% ; bp 09:55 Body Mass Index 44.30 (136.08 kg, 175.26 cm) bp ED Course: 09:54 Patient arrived in ED. kb 09:54 Monica Torres FNP-C [facility] kb 09:54 Karsten Vernon MD is Attending Physician. kb 09:55 Arm band placed on. bp 10:13 Zeb El, MITALI is Primary Nurse. bp 10:16 X-ray completed. Portable x-ray completed in exam room. Patient tolerated procedure sw well. 10:19 Ankle Left 3 View XRAY In Process Unspecified. EDMS 10:20 Triage completed. bp 10:23 Patient has correct armband on for positive identification. Bed in low position. Call bp light in reach. Side rails up X2. 11:31 No provider procedures requiring assistance completed. Patient did not have IV access bp during this emergency room visit. Crutch training done. Gerald wrap to left ankle. Administered Medications: No medications were administered Outcome: 10:57 Discharge ordered by . kb 11:32 Discharged to home via wheelchair, with crutches, with family. bp 11:32 Condition: stable 11:32 Discharge instructions given to patient, Instructed on discharge instructions, follow up and referral plans. medication usage, crutch walking, Demonstrated understanding of instructions, follow-up care, medications, crutch walking, Prescriptions given X 1. 11:33 Patient left the ED. bp Signatures: Dispatcher [employer] EDMS Monica Torres, ANIME DESIGNER-C ANIME DESIGNER-Jayashree Figueroa Brian, RN RN bp
[2018-10-23 12:32] VITALS: BP 127/79; TEMP 98.5; O2SAT 99
== END 2018-10-23 11:33 | disposition home or self-care (01) ==
LOC: ER 09:49
DX: S93.402A Sprain of unspecified ligament of left ankle, initial encounter (principal); W19.XXXA Unspecified fall, initial encounter; Y93.9 Activity, unspecified; Y92.009 Unspecified place in unspecified non-institutional (private) residence as the place of occurrence of the external cause; Z88.1 Allergy status to other antibiotic agents; Z88.3 Allergy status to other anti-infective agents; N18.3 Chronic kidney disease, stage 3 (moderate); F32.9 Major depressive disorder, single episode, unspecified; J45.909 Unspecified asthma, uncomplicated
CPT/HCPCS: 99284

== ENCOUNTER 2018-12-23 22:03 | Emergency (ER) | payer OTHER ==
[2018-12-23 22:50] LABS: Urine Blood 2+ (NEG); Urine Glucose NEGATIVE (NEG); Urine Protein 2+ (NEG); Urine Specific Gravity >1.030 (1.005-1.030)
[2018-12-23] MEDS ORDERED: NA CHLORIDE 0.9% 1,000 ML ONE (22:56)
[2018-12-23 23:06] LABS: Absolute Lymphocytes (CBC) 2.9 K/uL (0.7-4.9); Basophils % 0.9 % (0-1.3); Eosinophils % 0.3 % (0-4.4); Hematocrit 43.3 % (36.0-45.0); Lymphocytes % 19.6 % (15.3-44.8); MPV 7.5 fL (7.6-11.3); Monocytes % 5.6 % (3.3-12.3); RBC Red Blood Cell Count 4.59 M/uL (3.86-4.86)
[2018-12-23 23:16] LABS: Urine Bacteria 20-50 /HPF (<20); Urine Culture Reflex Order REFLEXED; Urine Mucus MOD /HPF (NONE SEEN)
[2018-12-23 23:19] LABS: Potassium 3.6 mmol/L (3.5-5.1)
--- OUTSIDE RECORDS SUMMARY | 2018-12-24 00:04 | XMS REPORT | Clinical Summary ---
:1980 Author Organization [facility] Address [address] [place] [address] Care Team Providers Name Role Phone Amanda [...] sciatica laterality unspecified, unspecified back pain laterality azaTHIOprine Take 3 tablets 90 tablet 1 Active (IMURAN) 50 mg (150 mg total) by 9 019 tablet mouth daily for 180 days. baclofen (LIORESAL) Take 1 tablet (20 [...] times a Myalgia day for 60 days. golimumab (SIMPONI) Inject 50 mg under 3 Syringe 0 50 mg/0.5 mL pen the skin every 28 9 019 injector days for 90 days. NDC 00315-300-90, Lot [id number],expires 01/09 predniSONE Take 1 tablet (5 60 tablet 1 (DELTASONE) 5 mg mg total) by mouth [...] Team Description 10/13/2018 Orders Only Rheumatology Mary Mtz Cervical radiculopathy; MD Mayer 10/09/2018 Refill Rheumatology Mayr Mtz Cervical radiculopathy; MD Mayer 09/29/2018 Refill Rheumatology Mary Mtz Myalgia MD 09/10/2018 Clinical Support Rheumatology 09/10/2018 Refill Rheumatology Kerrie Anderson MA 09/10/2018 Orders Only Rheumatology Monica Myalgia (Primary Dx) LOVE Sy 09/09/2018 Refill Rheumatology Monica Myalgia (Primary Dx) LOVE Sy 09/08/2018 Refill Rheumatology Mary Mtz MD 09/01/2018 Refill Rheumatology Mary Mtz MD 08/30/2018 Refill Rheumatology Mary Mtz MD 08/28/2018 Refill Rheumatology Mary Mtz MD 08/25/2018 Orders Only Rheumatology Mary Mtz MD 08/15/2018 Refill Rheumatology Mary Mtz, Cervical radiculopathy; MD Mayer 08/01/2018 Refill Rheumatology Mary Mtz MD 07/31/2018 Refill Rheumatology Mary Mtz MD 07/31/2018 Refill Rheumatology Mary Mtz MD 07/29/2018 Refill Rheumatology Mary Mtz MD 07/01/2018 Refill Rheumatology Mary Mtz MD 06/30/2018 Refill Rheumatology Mary Mtz MD 06/29/2018 Refill Rheumatology Mary Mtz MD 05/23/2018 Refill Rheumatology Mary Mtz, Cervical radiculopathy; MD Mayer 05/20/2018 Refill Rheumatology Mary Mtz MD 04/30/2018 Refill Rheumatology Mary Mtz MD 04/18/2018 Refill Rheumatology Mary Mtz MD 04/17/2018 Refill Rheumatology Mary Mtz MD 04/02/2018 Refill Rheumatology Mary Mtz MD 03/05/2018 Orders Only Rheumatology Mary Mtz MD 02/25/2018 Orders Only Rheumatology Mary Mtz, Cervical radiculopathy ( Primary Dx); MD Mayer [...] Telephone Internal Medicine Amanda Gonzalez MD after 12/22/2017 Immunizations Name Dates Previously Given Next Due [...] Grandmother Bates Sharla Cancer Maternal Grandmother [place] Terminal liver cancer GERD Maternal Grandmother Bates Sharla Liver cancer Maternal Grandmother Bates Sharla Ulcerative colitis Maternal Grandmother Bates Sharla Arthritis Mother Kiarra Vision loss Mother Kiarra Psuedo-tumor cerebri Alcohol abuse Sister Ena Depression Sister Ena Irritable bowel syndrome Sister Ena Learning disabilities Sister Ena ADD Mental illness Sister Ena PTSD, anxiety Relation Name Status Comments Brother Jeronimo Brother Dave Father Norberto Maternal Grandfather Mahnaz Maternal Grandmother [place] Mother Kiarra Sister Ena Social History Tobacco [...] Health Maintenance Due Date Last Done Comments INFLUENZA VACCINE 01/22/2019 04/17/2016, 04/13/2015 Results Not on fileafter 12/22/2017 Advance Directives Patient has advance care planning documents on file. For more information, please contact:[place] [address]
--- OUTSIDE RECORDS SUMMARY | 2018-12-24 00:04 | XMS REPORT | Clinical Summary ---
:1980 Author Organization [facility] Address [address] [place] [address] Care Team Providers Name Role Phone Ana [...] Not on file Results Not on fileafter 12/22/2017 Insurance Payer Benefit Plan / Subscriber ID Type Phone Address Group BLUE CROSS/BLUE BCBS PPO POS EPO xxxxxxxxxxxx PPO [phone] [address] [place] [address]
[2018-12-24] MEDS ORDERED: KETOROLAC 30 MG/ML INJ ONE (00:50)
[2018-12-24] MEDS ORDERED: NA CHLORIDE 0.9% 1,000 ML ONE (01:11)
--- NOTE | 2018-12-24 01:22 | ER ---
Nurse's Notes [facility] Name: Emilia Lora Age: 38 yrs Sex: Female : 1980 Arrival Date: 12/23/2018 Time: 22:07 Bed 27 Private MD: Diagnosis: Urinary tract infection, site not specified Presentation: 12/23 22:11 Presenting complaint: Patient states: left flank pain. Presenting complaint:. fu Transition of care: patient was not received from another setting of care. Risk Assessment: Do you want to hurt yourself or someone else? Patient reports no desire to harm self or others. Initial Sepsis Screen: Does the patient meet any 2 criteria? No. Patient's initial sepsis screen is negative. Care prior to arrival: None. 22:11 Method Of Arrival: Wheelchair fu Triage Assessment: 22:33 General: Appears in no apparent distress. Behavior is calm, cooperative. Pain: fu Complains of pain in left flank pain Pain currently is 6 out of 10 on a pain scale. Historical: - Allergies: 22:38 Cipro; fu 22:38 Levofloxacin; fu 22:38 Keflex; fu - Immunization history:: Adult Immunizations up to date. - Social history:: Smoking status: Patient/guardian denies using tobacco. Screenin:35 Abuse screen: Denies threats or abuse. Nutritional screening: No deficits noted. fu Tuberculosis screening: No symptoms or risk factors identified. Fall Risk None identified. Assessment: 22:36 General: Appears in no apparent distress. Behavior is calm, cooperative. Pain: fu Complains of pain in left flank Pain currently is 6 out of 10 on a pain scale. Neuro: No deficits noted. Cardiovascular: Capillary refill < 3 seconds. Respiratory: Airway is patent Breath sounds are clear bilaterally. : Reports urinary frequency. 23:55 Reassessment: Patient is alert, oriented x 3, equal unlabored respirations, skin fu warm/dry/pink. GI: No deficits noted. Vital Signs: 22:34 BP 127 / 70; Resp 18; Temp 98.4; Pulse Ox 97% on R/A; Pain 6/10; fu 23:02 BP 117 / 61; Pulse 88; Resp 18; Pulse Ox 96% on R/A; Pain 0/10; fu 07 01:00 BP 112 / 71; Pulse 84; Resp 15; Pulse Ox 96% ; Pain 4/10; fu ED Course: 12/23 22:07 Patient arrived in ED. am2 22:07 Phylicia Harkins FNP-C [facility]. snw 22:08 Jonathan Love MD is Attending Physician. snw 22:11 Jakub Cabrera, MITALI is Primary Nurse. fu 22:50 CT Stone Protocol In Process Unspecified. EDMS 22:52 Initial lab(s) drawn, sent to lab. First set of blood cultures drawn. Inserted saline fu lock: 22 gauge in right hand, using aseptic technique. 23:36 Patient has correct armband on for positive identification. Bed in low position. Call fu light in reach. Side rails up X2. 23:56 No provider procedures requiring assistance completed. fu 12/24 00:52 Nurse Practitioner and/or Physician Conveyancer to see patient. fu 00:52 warm blanket provided. fu 01:51 IV discontinued, bleeding controlled, No redness/swelling at site. Pressure dressing fu applied. Administered Medications: 12/23 23:04 Drug: NS 0.9% 1000 ml Route: IV; Rate: 1 bolus; Site: right hand; fu 0703 00:54 Follow up: Response: No adverse reaction fu 00:43 Drug: TORadol 30 mg Route: IVP; Site: right hand; fu 00:54 Follow up: Response: Pain is decreased fu 00:57 Drug: NS 0.9% 1000 ml Route: IV; Rate: 1 bolus; Site: right hand; fu 01:27 Drug: Augmentin 875 mg Route: PO; fu 01:33 Follow up: Response: No adverse reaction fu Outcome: 01:21 Discharge ordered by . snw 02:15 Discharged to home ambulatory. fu 02:15 Condition: stable 02:15 Discharge instructions given to patient, Instructed on discharge instructions, follow up and referral plans. Demonstrated understanding of instructions, follow-up care, medications, Prescriptions given X 2. 02:16 Patient left the ED. fu Signatures: Dispatcher [employer] EDMS Phylicia Harkins FNP-C EXTRACTION OPERATOR-Csnw Marguerite Rowe am2 Jakub Cabrera, RN RN fu Corrections: (The following items were deleted from the chart) 12/23 23:40 22:38 Allergies: Keflex [Inactive]; fu fu
--- NOTE | 2018-12-24 01:22 | EDPHYS ---
Physician Documentation [facility] Name: Emilia Lora Age: 38 yrs Sex: Female : 1980 Arrival Date: 12/23/2018 Time: 22:07 Bed 27 Private MD: DEVON Physician Jonathan Love HPI: 12/24 00:17 This 38 yrs old Female presents to ER via Wheelchair with complaints of Flank snw Pain, Urinary Frequency, Nausea. 00:17 The patient complains of pain in the left mid back. The pain does not radiate. Onset: snw The symptoms/episode began/occurred 3 day(s) ago, and became worse and became persistent. Modifying factors: The symptoms are alleviated by nothing. Associated signs and symptoms: Pertinent positives: urinary frequency, nausea, left flank pain. Severity of pain: At its worst the pain was moderate severe. The patient has experienced similar episodes in the past, chronically. The patient has been recently seen by a physician: with similar presenting complaints, lab tests were done. Historical: - Allergies: 12/23 22:38 Cipro; fu 22:38 Levofloxacin; fu 22:38 Keflex; fu - Immunization history:: Adult Immunizations up to date. - Social history:: Smoking status: Patient/guardian denies using tobacco. ROS: 23:33 Constitutional: Negative for fever, chills, and weight loss, Eyes: Negative for injury, snw pain, redness, and discharge, ENT: Negative for injury, pain, and discharge, Neck: Negative for injury, pain, and swelling, Cardiovascular: Negative for chest pain, palpitations, and edema, Respiratory: Negative for shortness of breath, cough, wheezing, and pleuritic chest pain, Abdomen/GI: Negative for abdominal pain, nausea, vomiting, diarrhea, and constipation, Back: Negative for injury and pain, MS/Extremity: Negative for injury and deformity, Skin: Negative for injury, rash, and discoloration, Neuro: Negative for headache, weakness, numbness, tingling, and seizure. 23:33 : Positive for urinary symptoms, small amounts. Exam: 23:31 Eyes: Pupils equal round and reactive to light, extra-ocular motions intact. Lids and snw lashes normal. Conjunctiva and sclera are non-icteric and not injected. Cornea within normal limits. Periorbital areas with no swelling, redness, or edema. ENT: Nares patent. No nasal discharge, no septal abnormalities noted. Tympanic membranes are normal and external auditory canals are clear. Oropharynx with no redness, swelling, or masses, exudates, or evidence of obstruction, uvula midline. Mucous membranes moist. Neck: Trachea midline, no thyromegaly or masses palpated, and no cervical lymphadenopathy. Supple, full range of motion without nuchal rigidity, or vertebral point tenderness. No Meningismus. Chest/axilla: Normal chest wall appearance and motion. Nontender with no deformity. No lesions are appreciated. Cardiovascular: Regular rate and rhythm with a normal S1 and S2. No gallops, murmurs, or rubs. Normal PMI, no JVD. No pulse deficits. Respiratory: Lungs have equal breath sounds bilaterally, clear to auscultation and percussion. No rales, rhonchi or wheezes noted. No increased work of breathing, no retractions or nasal flaring. Abdomen/GI: Soft, non-tender, with normal bowel sounds. No distension or tympany. No guarding or rebound. No evidence of tenderness throughout. 23:31 Skin: Warm, dry with sluggish turgor. Normal color with no rashes, no lesions, and no evidence of cellulitis. MS/ Extremity: Pulses equal, no cyanosis. Neurovascular intact. Full, normal range of motion. Neuro: Awake and alert, GCS 15, oriented to person, place, time, and situation. Cranial nerves II-XII grossly intact. Motor strength 5/5 in all extremities. Sensory grossly intact. Cerebellar exam normal. Normal gait. Psych: Awake, alert, with orientation to person, place and time. Behavior, mood, and affect are within normal limits. 23:31 Constitutional: The patient appears alert, dry appearing 23:31 Head/face: Noted is cracked lips. 23:31 Back: CVA tenderness, that is mild, that is moderate, is noted on the left. Vital Signs: 22:34 BP 127 / 70; Resp 18; Temp 98.4; Pulse Ox 97% on R/A; Pain 6/10; fu 23:02 BP 117 / 61; Pulse 88; Resp 18; Pulse Ox 96% on R/A; Pain 0/10; fu 07/03 01:00 BP 112 / 71; Pulse 84; Resp 15; Pulse Ox 96% ; Pain 4/10; fu MDM: 12/23 22:08 Patient medically screened. snw 12/24 01:23 Data reviewed: vital signs, nurses notes. Data interpreted: Pulse oximetry: on room air snw is 96 %. Interpretation: acceptable. Counseling: I had a detailed discussion with the patient and/or guardian regarding: the historical points, exam findings, and any diagnostic results supporting the discharge/admit diagnosis, lab results, radiology results, the need for outpatient follow up, to return to the emergency department if symptoms worsen or persist or if there are any questions or concerns that arise at home. Special discussion: I discussed with the patient the need to follow-up with the PCP/specialist for the noted incidental finding on X-ray/CT scanning. Based on the history and exam findings, there is no indication for further emergent testing or inpatient evaluation. I discussed with the patient/guardian the need to see the primary care provider for further evaluation of the symptoms. 12/23 22:08 Order name: Urine Microscopic Only; Complete Time: 23:20 snw 12/23 22:23 Order name: CBC with Diff; Complete Time: 23:09 snw 12/23 22:23 Order name: Chem 7; Complete Time: 23:20 snw 12/23 22:23 Order name: Blood Culture Adult (2) snw 12/23 22:23 Order name: Magnesium; Complete Time: 23:20 snw 12/23 22:31 Order name: Urine Dipstick--Ancillary (enter results); Complete Time: 23:00 mw2 12/23 22:23 Order name: CT Stone Protocol sn 12/23 22:31 Order name: Urine --Ancillary (enter results); Complete Time: 23:00 mw2 12/23 23:18 Order name: Urine Culture EDAK 12/23 23:55 Order name: [place] Screen Profile; Complete Time: 01:04 snw 12/23 22:08 Order name: Urine Test (obtain specimen); Complete Time: 23:54 snw 12/23 22:08 Order name: Urine Dipstick-Ancillary (obtain specimen); Complete Time: 23:54 snw Administered Medications: 12/23 23:04 Drug: NS 0.9% 1000 ml Route: IV; Rate: 1 bolus; Site: right hand; fu 12/24 00:54 Follow up: Response: No adverse reaction fu 00:43 Drug: TORadol 30 mg Route: IVP; Site: right hand; fu 00:54 Follow up: Response: Pain is decreased fu 00:57 Drug: NS 0.9% 1000 ml Route: IV; Rate: 1 bolus; Site: right hand; fu 01:27 Drug: Augmentin 875 mg Route: PO; fu 01:33 Follow up: Response: No adverse reaction fu Disposition: 09:38 Co-signature as Attending Physician, Jonathan Love MD I agree with the assessment and evelyne plan of care. Disposition: 12/24/18 01:21 Discharged to Home. Impression: Urinary tract infection, site not specified. - Condition is Stable. - Discharge Instructions: Urinary Tract Infection, Adult, Enlarged Spleen, Rehydration, Adult. - Prescriptions for Augmentin 875- 125 mg Oral Tablet - take 1 tablet by ORAL route every 12 hours for 10 days; 20 tablet. Diclofenac Sodium 75 mg Oral Tablet Sustained Release - take 1 tablet by ORAL route 2 times per day; 30 tablet. - Work release form, Medication Reconciliation Form, Thank You Letter, Antibiotic Education, Prescription Opioid Use form. - Follow up: Private Physician; When: 1 - 2 days; Reason: Recheck today's complaints, Continuance of care, Re-evaluation by your physician. Follow up: Emergency Department; When: As needed; Reason: Worsening of condition. Signatures: Dispatcher [employer] Jonathan Salmeron MD MD cha Therrien, Shelly, FINANCIAL SYSTEMS MANAGER-C FINANCIAL SYSTEMS MANAGER-CsnJakub Gaines RN RN Corrections: (The following items were deleted from the chart) 12/23 23:40 22:38 Allergies: Keflex [Inactive]; fu fu 12/24 02:16 01:21 12/24/2018 01:21 Discharged to Home. Impression: Urinary tract infection, site fu not specified. Condition is Stable. Forms are Medication Reconciliation Form, Thank You Letter, Antibiotic Education, Prescription Opioid Use. Follow up: Private Physician; When: 1 - 2 days; Reason: Recheck today's complaints, Continuance of care, Re-evaluation by your physician. Follow up: Emergency Department; When: As needed; Reason: Worsening of condition. snw
[2018-12-24] MEDS ORDERED: AMOX/K CLAV 875 MG TAB ONE (01:39)
--- NOTE | 2018-12-24 11:16 | RAD REPORT ---
EXAM DESCRIPTION: CT - Stone Protocol - 12/24/2018 1:49 am CLINICAL HISTORY: 38 years Female hematuria;Kidney stones COMPARISON: February 07, 2018. TECHNIQUE: Images were obtained in axial, sagittal, and coronal planes. No intravenous contrast was administered. This exam was performed according to our departmental dose-optimization program which includes use of Automated Exposure Control, adjustment of the mA and/or kV according to patient size and/or use of i terative reconstruction technique. FINDINGS: No visualization right kidney. Compensatory enlargement left kidney. No obstructing renal calcifications on left. No hydronephrosis on left. Bladder is decompressed. Appendix within normal limits. No bowel obstruction, perforation, or inflammation. Fatty change involving the liver. Spleen is prominent in size measuring 12.7 cm in greatest dimension . Prior cholecystectomy. No abnormality adrenal glands bilaterally. No dilatation abdominal aorta. No adenopathy or abnormal fluid collections seen. Unremarkable uterus. No acute osseous abnormality. Dependent atelectatic change lower lungs bilaterally. IMPRESSION: No visualization right kidney. Compensatory enlargement left kidney. No obstructing brooks l calcifications on left. Fatty change involving the liver. Electronically signed by: Belem Alfaro MD 12/23/2018 10:59 PM CDT Due to temporary technical issues with the PACS/Fluency reporting system, reports are being signed by the in house radiologist as a courtesy to ensure prompt reporting. The interpreting radiologist is f ully responsible for the content of the report.
[2018-12-24 20:31] VITALS: BP 112/71; TEMP 98.4; O2SAT 96
== END 2018-12-24 02:16 | disposition home or self-care (01) ==
LOC: ER 22:03
DX: N39.0 Urinary tract infection, site not specified (principal); Z88.1 Allergy status to other antibiotic agents; Z88.8 Allergy status to other drugs, medicaments and biological substances
CPT/HCPCS: 36415; 74176; 76377; 80048; 81003; 81015; 81025; 83735; 85025; 86308; 87040; 87086; 87088; 96374; 99284; J7030

== ENCOUNTER 2019-01-21 16:04 | Emergency (ER) | payer OTHER ==
--- OUTSIDE RECORDS SUMMARY | 2019-01-21 16:08 | XMS REPORT | Summary of Care ---
:1980 Author Name Nisa Fofana M.A. Address [facility] Unavailable , Care Team Providers Name Role Phone Nisa Fofana M.A. Roger Unavailable Unavailable COREY HOBSON N.P. Unavailable Unavailable COREY CHEN Unavailable Unavailable Unavailable Unavailable Unavailable Functional Status Name Dates Details Functional status health issues are not documented Status: Name Dates Details Cognitive status health issues are not documented Status: Problems Name Dates Details Rheumatoid arthritis (714.0, M06.9) Status: Active Asthma (493.90, J45.909) Status: Active Anxiety (300.00, F41.9) Status: Active PCOS (polycystic ovarian syndrome) (256.4, E28.2) Status: Active Injury, foot, left, initial encounter (959.7, S99.922A) Status: Active Recurrent UTI (urinary tract infection) (599.0, N39.0) Status: Active Depression (311, F32.9) Status: Active Endometriosis (617.9, N80.9) Status: Active Ulcerative colitis (556.9, K51.90) Status: Active Obesity, morbid (more than 100 lbs over ideal weight or BMI > 40) (278.01, E66.01) Status: Active Medications Name Dates Details Amoxicillin-Pot Clavulanate 875-125 MG Oral Tablet TAKE 1 TABLET EVERY 12 HOURS UNTIL GONE. Refills: 0 Start : 29-Dec-2018 Active Propranolol HCl - 20 MG Oral Tablet TAKE 1 TABLET TWICE DAILY. Refills: 0 Start : 29-Dec-2018 Active traZODone HCl - 100 MG Oral Tablet TAKE 1 TABLET AT BEDTIME. Refills: 0 Start : 29-Dec-2018 Active Blisovi Fe 1.5/30 1.5-30 MG-MCG Oral Tablet TAKE 1 TABLET DAILY. Refills: 0 Start : 29-Dec-2018 Active 28 Tablet Pack Neurontin 800 MG Oral Tablet TAKE 1 TABLET 3 TIMES DAILY. Refills: 0 Start : 29-Dec-2018 Active busPIRone HCl - 10 MG Oral Tablet TAKE 1 TABLET EVERY 12 HOURS DAILY. Refills: 0 Start : 29-Dec-2018 Active Amphetamine-Dextroamphetamine 20 MG Oral Tablet TAKE 1 TABLET DAILY. Refills: 0 Start : 29-Dec-2018 Active diazePAM 5 MG Oral Tablet TAKE 1 TABLET NEEDED. Refills: 0 Start : 29-Dec-2018 Active Baclofen 20 MG Oral Tablet TAKE 1 TABLET 3 TIMES DAILY NEEDED. Refills: 0 Start : 29-Dec-2018 Active Nitrofurantoin Macrocrystal 100 MG Oral Capsule TAKE 1 CAPSULE EVERY 12 HOURS DAILY. Quantity: 14 Refills: 0 JAZLYN N.P.COREY Start : 29-Dec-2018 Active Allergies and Adverse Reactions Name Dates Details Ciprofloxacin HCl TABS (Allergy) Status: Active Keflex TABS (Allergy) Status: Active Levaquin TABS (Allergy) Status: Active Procedures Procedure Dates Details [QLH] TSH, 3RD GENERATION W/REFLEX TO FT4 Date: 29-Dec-2018 [QH] LIPID PANEL WITH REFLEX TO DIRECT LDL Date: 29-Dec-2018 [QLH] HEMOGLOBIN A1c Date: 29-Dec-2018 [QLH] CMP W/EGFR Date: 29-Dec-2018 [QLH] CBC (INCLUDES DIFF/PLT) Date: 29-Dec-2018 [QH] HIV AB, HIV 1/2, EIA, WITH REFLEXES Date: 29-Dec-2018 [QLH] ABDOUL PANEL, COMPREHENSIVE Date: 29-Dec-2018 [QLH] SED RATE BY MODIFIED WESTERGREN Date: 29-Dec-2018 [H] CRP, hs, Cardiac Risk Date: 29-Dec-2018 [H] Urinalysis w/ Microscopic Date: 29-Dec-2018 [QLH] CULTURE, URINE, ROUTINE Date: 29-Dec-2018 [O] Urine Dipstick (In Office) Date: 29-Dec-2018 History of Ureterectomy Completed History of Gallbladder surgery Completed History of Endometrial ablation Completed History of Kidney surgery Completed Immunization Name Dates Details Tdap on: Jun-2015 Family History Name Dates Details Family history of Anxiety (300.00, F41.9) Status: Active Family history of depression (V17.0, Z81.8) Status: Active Name Dates Details Family history of hypothyroidism (V18.19, Z83.49) Status: Active Name Dates Details Family history of hypertension (V17.49, Z82.49) Status: Active Family history of alcoholism (V17.0, Z81.1) Status: Active Social History Name Dates Details Unknown if ever smoked Vital Signs Date Test Result Details [id number] Physical Findings 18 Status: Comments: PHQ-9 Adult Depression Screening [id number] BP Systolic 111 mm[Hg] Status: Comments: Location: LUE; Position: Sitting BP Diastolic 73 mm[Hg] Status: Comments: Location: E; Position: Sitting Weight 325.4375 lb Status: Height 68 in Status: Body Mass Index Calculated 49.48 kg/m2 Status: Body Surface Area Calculated 2.51 m2 Status: Temperature 98.3 f Status: Comments: Method: Oral Heart Rate 93 /min Status: Comments: Location: L Brachial Artery; Quality: Normal O2 SAT 94 % Status: Comments: Source: RA Respiration Rate 20 /min Status: Comments: Quality: Normal Results Date Description Value Details Results not documented Plan of Care Name Dates Details Planned Observations Planned Goals not documented Planned Encounters Appointment; COREY HOBSON NP On: 12-Jan-2019 11:00 Instructions Name Dates Details Instructions not documented Encounters Appointment; COREY HOBSON NP On: 29-Dec-2018 13:00 Encounter Diagnosis: Problem not documented
--- OUTSIDE RECORDS SUMMARY | 2019-01-21 16:08 | XMS REPORT | Clinical Summary ---
:1980 Author Organization [facility] Address [address] [place] [address] Care Team Providers Name Role Phone Ana [...] Not on file Results Not on fileafter 01/20/2018 Insurance Payer Benefit Plan / Subscriber ID Type Phone Address Group BLUE CROSS/BLUE BCBS PPO POS EPO xxxxxxxxxxxx PPO [phone] [address] [place] [address]
--- OUTSIDE RECORDS SUMMARY | 2019-01-21 16:08 | XMS REPORT | Clinical Summary ---
:1980 Author Organization [facility] Address [address] [place] [address] Care Team Providers Name Role Phone Amanda [...] 019 tablet mouth daily for 180 days. gabapentin Take 1 tablet (600 90 [...] 9 019 injector days for 90 days. [facility] [id number], Lot [id number],expires 01/09 predniSONE Take 1 tablet (5 60 tablet 1 (DELTASONE) 5 mg mg total) by mouth 9 019 tabletIndications: 2 (two) times a Myalgia day for 60 days. baclofen (LIORESAL) Take 1 tablet (20 180 tablet 0 20 MG mg total) by mouth 9 019 tabletIndications: 2 (two) times a Cervical day for 90 days. radiculopathy, Myalgia gabapentin Take 1 tablet (800 90 tablet 2 (NEURONTIN) 800 mg mg total) by mouth 9 019 tablet 3 (three) times a day for 90 days. Hospital, Clinic, or Other Ordered Dose [...] Encounters Date Type Specialty Care Team Description 01/01/2019 Documentation Rheumatology Kerrie Anderson, Records release MA 10/13/2018 Orders Only Rheumatology Mary Mtz MD Cervical radiculopathy ; Myalgia 10/09/2018 Refill Rheumatology Mary Mtz MD Cervical radiculopathy; Myalgia 09/29/2018 Refill Rheumatology Mary Mtz MD Myalgia 09/10/2018 Clinical Support Rheumatology 09/10/2018 Refill Rheumatology Kerrie Anderson MA 09/10/2018 Orders Only Rheumatology Kerrie Anderson Myalgia (Primary Dx) LOVE 09/09/2018 Refill Rheumatology Monica Kerrie, Myalgia (Primary Dx) MA 09/08/2018 Refill Rheumatology [...] laterality 01/30/2018 Refill Rheumatology Mary Mtz MD after 01/20/2018 Immunizations Name Dates Previously Given Next Due [...] Grandmother Bates Sharla Cancer Maternal Grandmother Bates [place] Terminal liver cancer GERD Maternal Grandmother [place] Liver cancer Maternal Grandmother Bates Sharla Ulcerative colitis Maternal Grandmother Bates Sharla Arthritis Mother Kiarra Vision loss Mother Kiarra Psuedo-tumor cerebri Alcohol abuse Sister Ena Depression Sister Ena Irritable bowel syndrome Sister Ena Learning disabilities Sister Ena ADD Mental illness Sister Ena PTSD, anxiety Relation Name Status Comments Brother Jeronimo Brother Dave Father Norberto Maternal Grandfather Mahnaz Maternal Grandmother [place] Mother Kiarra Sister Ena Social History Tobacco [...] 01/22/2019 04/17/2016, 04/13/2015 Results Not on fileafter 01/20/2018 Advance Directives Patient has advance care planning documents on file. For more information, please contact:[place] [address]
[2019-01-21 16:50] LABS: Absolute Lymphocytes (CBC) 1.8 K/uL (0.7-4.9); Basophils % 0.7 % (0-1.3); Hematocrit 41.8 % (36.0-45.0); MPV 7.5 fL (7.6-11.3); RBC Red Blood Cell Count 4.44 M/uL (3.86-4.86)
[2019-01-21 17:04] LABS: ALT/SGPT 16 U/L (12-78); AST/SGOT 8 U/L (15-37); Albumin 3.4 g/dL (3.4-5.0); Alkaline Phosphatase 57 U/L (45-117); BUN Blood Urea Nitrogen 25 mg/dL (7-18); Bicarbonate 26 mmol/L (21-32); Bilirubin Direct < 0.1 mg/dL (0-0.2); Bilirubin Total 0.2 mg/dL (0.2-1.0); Glucose Level 115 mg/dL (74-106); Lipase 158 U/L (73-393); Potassium 4.5 mmol/L (3.5-5.1); Protein, Total 7.1 g/dL (6.4-8.2); Sodium Level 141 mmol/L (136-145)
[2019-01-21 17:17] LABS: Urine Blood 2+ (NEG); Urine Glucose NEGATIVE (NEG); Urine Protein TRACE (NEG); Urine pH 7.5 (5.0-7.0)
[2019-01-21 17:21] LABS: Urine Bacteria <20 /HPF (<20); Urine Culture Reflex Order NOT NEEDED
--- NOTE | 2019-01-21 17:40 | RAD REPORT ---
EXAM DESCRIPTION: CT - Stone Protocol - 01/21/2019 5:31 pm CLINICAL HISTORY: Flank pain. ABD PAIN COMPARISON: <Comparisons> TECHNIQUE: Axial images were obtained without oral or IV contrast. Lack of contrast limits solid org an and vascular assessment. The [id number] spans the entirety of the system partially obscuring uppermost abdomen and lung bases. Coronal reformatted images were obtained and reviewed. All CT scans are performed using dose optimization technique as appropriate and may include automated exposure control or mA/KV adjustment according to patient size. FINDINGS: The lower lung vega are clear. Cholecystectomy clips. Imaged portions of the liver and spleen show no suspicious findings on non-contrast imaging. The panc reas and adrenal glands are normal. No pathologic lymphadenopathy in the abdomen or pelvis. The right kidney is nonvisualized. The left kidney appears mildly hypertrophied. No renal calculus or hydronephrosis. No bowel obstruction, free air, free fluid or abscess. Normal appendix noted. No significant bony abnormality. IMPRESSION: No acute finding demonstrated.
--- NOTE | 2019-01-21 17:43 | EDPHYS ---
Physician Documentation [facility] Name: Emilia Lora Age: 38 yrs Sex: Female : 1980 Arrival Date: 01/21/2019 Time: 16:07 Bed 23 Private MD: ED Physician Karsten Vernon HPI: 01/21 17:30 This 38 yrs old Female presents to ER via Ambulatory with complaints of kb Abdominal Pain, Urinary Problem. 17:30 The patient presents with abdominal pain in the left upper quadrant, in the left lower kb quadrant. Onset: The symptoms/episode began/occurred today. The symptoms do not radiate. Associated signs and symptoms: Pertinent positives: nausea. The symptoms are described as constant. Modifying factors: The symptoms are alleviated by nothing, the symptoms are aggravated by nothing. Severity of pain: At its worst the pain was moderate in the emergency department the pain is unchanged. The patient has not experienced similar symptoms in the past. The patient has not recently seen a physician. Pt reports left abd pain and pain in urethra that started this morning. Nausea since yesterday. States she has had multiple UTIs recently. 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 - Social history:: Smoking status: Patient/guardian denies using tobacco. - Ebola Screening: : No symptoms or risks identified at this time. ROS: 17:27 Constitutional: Negative for fever, chills, and weight loss, ENT: Negative for injury, kb pain, and discharge, Neck: Negative for injury, pain, and swelling, Cardiovascular: Negative for chest pain, palpitations, and edema, Respiratory: Negative for shortness of breath, cough, wheezing, and pleuritic chest pain, Back: Negative for injury and pain, MS/Extremity: Negative for injury and deformity, Skin: Negative for injury, rash, and discoloration, Neuro: Negative for headache, weakness, numbness, tingling, and seizure. 17:27 Abdomen/GI: Positive for abdominal pain, nausea. 17:27 : Positive for "pain in urethra". Exam: 17:27 Constitutional: This is a well developed, well nourished patient who is awake, alert, kb and in no acute distress. Head/Face: Normocephalic, atraumatic. Neck: Trachea midline, no thyromegaly or masses palpated, and no cervical lymphadenopathy. Supple, full range of motion without nuchal rigidity, or vertebral point tenderness. No Meningismus. Chest/axilla: Normal chest wall appearance and motion. Nontender with no deformity. No lesions are appreciated. Cardiovascular: Regular rate and rhythm with a normal S1 and S2. No gallops, murmurs, or rubs. Normal PMI, no JVD. No pulse deficits. Respiratory: Lungs have equal breath sounds bilaterally, clear to auscultation and percussion. No rales, rhonchi or wheezes noted. No increased work of breathing, no retractions or nasal flaring. Back: No spinal tenderness. No costovertebral tenderness. Full range of motion. Skin: Warm, dry with normal turgor. Normal color with no rashes, no lesions, and no evidence of cellulitis. MS/ Extremity: Pulses equal, no cyanosis. Neurovascular intact. Full, normal range of motion. Neuro: Awake and alert, GCS 15, oriented to person, place, time, and situation. Cranial nerves II-XII grossly intact. Motor strength 5/5 in all extremities. Sensory grossly intact. Cerebellar exam normal. Normal gait. 17:27 Abdomen/GI: Inspection: abdomen appears normal, Bowel sounds: normal, in all quadrants, Palpation: soft, in all quadrants, mild abdominal tenderness, in the right upper quadrant, left upper quadrant and left lower quadrant. Vital Signs: 16:13 BP 170 / 68; Pulse 99; Resp 16; Temp 98.2; Pulse Ox 97% on R/A; Weight 147.42 kg; hb Height 5 ft. 8 in. (172.72 cm); Pain 6/10; 17:26 BP 125 / 70; Pulse 85; Resp 18; Pulse Ox 100% on R/A; mg2 18:01 BP 122 / 75; Pulse 80; Resp 18; Temp 98; Pulse Ox 100% on R/A; Pain 0/10; mg2 16:13 Body Mass Index 49.42 (147.42 kg, 172.72 cm) hb MDM: 16:17 Patient medically screened. kb 17:27 Data reviewed: vital signs, nurses notes. Data interpreted: Pulse oximetry: on room air kb is 100 %. Interpretation: normal. 17:41 Counseling: I had a detailed discussion with the patient and/or guardian regarding: the kb historical points, exam findings, and any diagnostic results supporting the discharge/admit diagnosis, lab results, radiology results, the need for outpatient follow up, a family practitioner, to return to the emergency department if symptoms worsen or persist or if there are any questions or concerns that arise at home. 01/21 16:20 Order name: Basic Metabolic Panel; Complete Time: 17:06 kb 01/21 16:20 Order name: CBC with Diff; Complete Time: 17:02 kb 01/21 16:20 Order name: Hepatic Function; Complete Time: 17:06 kb 01/21 16:20 Order name: Lipase; Complete Time: 17:06 kb 01/21 16:20 Order name: Urine Microscopic Only; Complete Time: 17:23 kb 01/21 17:15 Order name: Urine Dipstick--Ancillary (enter results); Complete Time: 17:19 ss 01/21 16:20 Order name: IV Saline Lock; Complete Time: 16:48 kb 01/21 16:20 Order name: Labs collected and sent; Complete Time: 16:48 kb 01/21 16:20 Order name: Urine Test (obtain specimen); Complete Time: 16:48 kb 01/21 16:20 Order name: Urine Dipstick-Ancillary (obtain specimen); Complete Time: 16:48 kb 01/21 17:07 Order name: CT Stone Protocol; Complete Time: 17:41 kb 01/21 17:15 Order name: Urine --Ancillary (enter results); Complete Time: 17:19 ss Administered Medications: No medications were administered Disposition: 18:21 Co-signature as Attending Physician, Karsten Vernon MD. rn Disposition: 01/21/19 17:42 Discharged to Home. Impression: Generalized abdominal pain. - Condition is Stable. - Discharge Instructions: Abdominal Pain, Adult, Izhm-of-Gurj. - Medication Reconciliation Form, Thank You Letter, Antibiotic Education, Prescription Opioid Use form. - Follow up: Emergency Department; When: As needed; Reason: Worsening of condition. Follow up: Private Physician; When: 2 - 3 days; Reason: Recheck today's complaints, Continuance of care, Re-evaluation by your physician. Signatures: Dispatcher [employer] Monica Mitchell, NICHELLE-Miguel BROWNP-Karsten Rashid MD MD rn Baxter, Heather, RN RN Robby Ugarte RN RN mg2 Corrections: (The following items were deleted from the chart) 18:02 17:42 01/21/2019 17:42 Discharged to Home. Impression: Generalized abdominal pain. mg2 Condition is Stable. Forms are Medication Reconciliation Form, Thank You Letter, Antibiotic Education, Prescription Opioid Use. Follow up: Emergency Department; When: As needed; Reason: Worsening of condition. Follow up: Private Physician; When: 2 - 3 days; Reason: Recheck today's complaints, Continuance of care, Re-evaluation by your physician. kb
--- NOTE | 2019-01-21 17:43 | ER ---
Nurse's Notes [facility] Name: Emilia Lora Age: 38 yrs Sex: Female : 1980 Arrival Date: 01/21/2019 Time: 16:07 Bed 23 Private MD: Diagnosis: Generalized abdominal pain Presentation: 01/21 16:12 Presenting complaint: LUQ pain x 2 hrs. Denies fever/N/V/D. Transition of care: patient hb was not received from another setting of care. Onset of symptoms was January 21, 2019. Risk Assessment: Do you want to hurt yourself or someone else? Patient reports no desire to harm self or others. Initial Sepsis Screen: Does the patient meet any 2 criteria? No. Patient's initial sepsis screen is negative. Does the patient have a suspected source of infection? No. Patient's initial sepsis screen is negative. Care prior to arrival: None. 16:12 Method Of Arrival: Ambulatory hb 16:12 Acuity: VINITA 3 hb Triage Assessment: 17:09 General: Appears in no apparent distress. comfortable, Behavior is calm, cooperative. mg2 Pain: Complains of pain in abdomen Pain does not radiate. Pain currently is 4 out of 10 on a pain scale. Quality of pain is described as aching, Pain began gradually. EENT: No signs and/or symptoms were reported regarding the EENT system. Neuro: Level of Consciousness is awake, alert, obeys commands, Oriented to person, place, time, situation. Cardiovascular: Capillary refill < 3 seconds Patient's skin is warm and dry. Respiratory: Airway is patent Respiratory effort is even, unlabored, Respiratory pattern is regular, symmetrical. GI: Reports lower abdominal pain, upper abdominal pain. : No signs and/or symptoms were reported regarding the genitourinary system. :. Derm: Skin is intact, is healthy with good turgor, Skin is pink, warm \T\ dry. normal. Musculoskeletal: Circulation, motion, and sensation intact. Capillary refill < 3 seconds. 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 - Social history:: Smoking status: Patient/guardian denies using tobacco. - Ebola Screening: : No symptoms or risks identified at this time. Screenin:48 Abuse screen: Denies threats or abuse. Denies injuries from another. Nutritional mg2 screening: No deficits noted. Tuberculosis screening: No symptoms or risk factors identified. Fall Risk IV access (20 points). Assessment: 16:53 General: Appears in no apparent distress. comfortable, Behavior is calm, cooperative. mg2 Neuro: Level of Consciousness is awake, alert, obeys commands, Oriented to person, place, time, situation. 17:12 GI: mg2 17:26 Reassessment: patient sent to ct scan via wheelchair. mg2 18:01 GI: Abd is soft and non tender. mg2 Vital Signs: 16:13 BP 170 / 68; Pulse 99; Resp 16; Temp 98.2; Pulse Ox 97% on R/A; Weight 147.42 kg; hb Height 5 ft. 8 in. (172.72 cm); Pain 6/10; 17:26 BP 125 / 70; Pulse 85; Resp 18; Pulse Ox 100% on R/A; mg2 18:01 BP 122 / 75; Pulse 80; Resp 18; Temp 98; Pulse Ox 100% on R/A; Pain 0/10; mg2 16:13 Body Mass Index 49.42 (147.42 kg, 172.72 cm) hb ED Course: 16:07 Patient arrived in ED. mr 16:13 Triage completed. hb 16:14 Monica Torres FNP-C [facility]. kb 16:14 Karsten Vernon MD is Attending Physician. kb 16:16 Arm band placed on left wrist. hb 16:31 Robby Ugarte, MITALI is Primary Nurse. mg2 16:48 No provider procedures requiring assistance completed. Inserted saline lock: 22 gauge mg2 in left forearm, using aseptic technique. Blood collected. by MITALI Plunkett. 17:08 Patient has correct armband on for positive identification. Pulse ox on. NIBP on. Door mg2 closed. Warm blanket given. 17:11 Radiology exam delayed due to test not completed at this time. nj 17:33 CT Stone Protocol In Process Unspecified. EDMS 17:33 CT completed. Patient tolerated procedure well. Patient moved to ID. Patient moved back wa from ID. 18:01 IV discontinued, intact, bleeding controlled, No redness/swelling at site. Pressure mg2 dressing applied. Administered Medications: No medications were administered Outcome: 17:42 Discharge ordered by . bonny 18:01 Discharged to home ambulatory. mg2 18:01 Condition: stable 18:01 Discharge instructions given to patient, Instructed on discharge instructions, follow up and referral plans. Demonstrated understanding of instructions, follow-up care. 18:02 Patient left the ED. mg2 Signatures: Dispatcher [employer] EDMS Monica Torres, MARKLOGIC DEVELOPER-C MARKLOGIC DEVELOPER-Yecenia Miller Heather, RN RN Tacos Lopez Michele, MITALI RN mg2
[2019-01-21 18:30] VITALS: O2SAT 100
[2019-01-21 18:32] VITALS: BP 122/75; TEMP 98
== END 2019-01-21 18:02 | disposition home or self-care (01) ==
LOC: ER 16:04
DX: R10.12 Left upper quadrant pain (principal); Z88.1 Allergy status to other antibiotic agents
CPT/HCPCS: 36415; 74176; 76377; 80048; 80076; 81003; 81015; 81025; 83690; 85025

== ENCOUNTER 2019-02-04 23:00 | Emergency (ER) | payer OTHER ==
--- OUTSIDE RECORDS SUMMARY | 2019-02-04 23:03 | XMS REPORT | Clinical Summary ---
:1980 Author Organization [facility] Address [address] [place] [address] Care Team Providers Name Role Phone Ana [...] Not on file Results Not on fileafter 02/03/2018 Insurance Payer Benefit Plan / Subscriber ID Type Phone Address Group BLUE CROSS/BLUE BCBS PPO POS EPO xxxxxxxxxxxx PPO [phone] [address] [place] [address]
--- OUTSIDE RECORDS SUMMARY | 2019-02-04 23:03 | XMS REPORT | Clinical Summary ---
:1980 Author Organization [facility] Address [address] [place] [address] Care Team Providers Name Role Phone Amanda [...] 9 019 injector days for 90 days. [facility] 77479-404-49, Lot [id number],expires 01/09 predniSONE Take 1 tablet (5 60 [...] Encounters Date Type Specialty Care Team Description 02/03/2019 Orders Only Internal Medicine Manda Hall MD 01/01/2019 Documentation Rheumatology Kerrie Anderson, Records release LOVE 10/13/2018 Orders Only Rheumatology Mary Mtz MD Cervical radiculopathy ; Myalgia 10/09/2018 Refill Rheumatology Mary Mtz MD Cervical radiculopathy; Myalgia 09/29/2018 Refill Rheumatology Mary Mtz MD Myalgia 09/10/2018 Clinical Support Rheumatology 09/10/2018 Refill Rheumatology Kerrie Anderson MA 09/10/2018 Orders Only Rheumatology Kerrie Anderson, Myalgia (Primary Dx) MA 09/09/2018 Refill Rheumatology Kerrie Anderson, Myalgia (Primary Dx) MA 09/08/2018 Refill Rheumatology [...] sciatica laterality unspecified, unspecified back pain laterality after 02/03/2018 Immunizations Name Dates Previously Given Next Due [...] Grandfather Mahnaz Parks's esophagus Maternal Grandmother [place] Cancer Maternal Grandmother [place] Terminal liver cancer GERD Maternal Grandmother Bates Sharla Liver cancer Maternal Grandmother [place] Ulcerative colitis Maternal Grandmother [place] Arthritis Mother Kiarra Vision loss Mother Kiarra Psuedo-tumor cerebri Alcohol abuse Sister Ena Depression Sister Ena Irritable bowel syndrome Sister Ena Learning disabilities Sister Ena ADD Mental illness Sister Ena PTSD, anxiety Relation Name Status Comments Brother Jeronimo Brother Dave Father Norberto Maternal Grandfather Mahnaz Maternal Grandmother Bates Sharal Mother Kiarra Sister Ena Social History Tobacco [...] 01/22/2019 04/17/2016, 04/13/2015 Results Not on fileafter 02/03/2018 Advance Directives Patient has advance care planning documents on file. For more information, please contact:[place] [address]
[2019-02-05 00:54] LABS: Urine Blood 1+ (NEG); Urine Glucose NEGATIVE (NEG); Urine Protein 1+ (NEG); Urine Specific Gravity >1.030 (1.005-1.030)
--- NOTE | 2019-02-05 02:12 | ER ---
Nurse's Notes [facility] Name: Emilia Lora Age: 38 yrs Sex: Female : 1980 Arrival Date: 02/04/2019 Time: 23:04 Bed 15 Private MD: Out, [facility] Diagnosis: Paresthesia of skin;Pain in left leg;Radiculopathy, lumbosacral region Presentation: 02/04 23:08 Presenting complaint: Patient states: "I have been having a pinching feeling on the jd3 inside of my left thigh, I am also having tingling in my foot and knee. I also have what looks like a swollen spot on my left thigh. I took ibuprofen around 2100.". Transition of care: patient was not received from another setting of care. Onset of symptoms was February 04, 2019. Risk Assessment: Do you want to hurt yourself or someone else? Patient reports no desire to harm self or others. Initial Sepsis Screen: Does the patient meet any 2 criteria? No. Patient's initial sepsis screen is negative. Does the patient have a suspected source of infection? No. Patient's initial sepsis screen is negative. Care prior to arrival: None. 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 LMP N/A - Irregular menses jd3 Historical: - Allergies: 23:15 Levofloxacin; jd3 23:15 Cipro; jd3 23:15 Keflex; jd3 23:15 Sulfasalazine; jd3 - Home Meds: 23:15 prednisone 5 mg Oral tab once daily [Active]; Simponi subcutaneous subcutaneous jd3 [Active]; gabapentin 800 mg oral tab 1 tab 3 times per day [Active]; baclofen 20 mg Oral tab 1 tab 3 times per day [Active]; propranolol 20 mg Oral tab 1 tab 3 times per day [Active]; 07/13 (28) 1 mg-20 mcg (21)/75 mg (7) oral tab 1 tab once daily [Active]; Trintellix 10 mg oral tab 1 tab once daily [Active]; - PMHx: 23:15 hypermobility sydrome; Rheumatoid Arthritis; Sleep Apnea; ulcerative colitis; rib cage jd3 cartlige swelling; - PSHx: 23:15 Nephrectomy - Right; Cholecystectomy; Adenoids; Nose; D \\T\\ C; jd3 - Immunization history:: Adult Immunizations up to date. - Social history:: Smoking status: Patient/guardian denies using tobacco. - Ebola Screening: : Patient negative for fever greater than or equal to 101.5 degrees Fahrenheit, and additional compatible Ebola Virus Disease symptoms. Screenin:56 Abuse screen: Denies threats or abuse. Denies injuries from another. Nutritional mg2 screening: No deficits noted. Tuberculosis screening: No symptoms or risk factors identified. Fall Risk None identified. Assessment: 23:54 General: Appears in no apparent distress. comfortable, Behavior is calm, cooperative. mg2 Pain: Complains of pain in left leg Pain radiates to left foot Pain currently is 4 out of 10 on a pain scale. Quality of pain is described as aching. Neuro: Level of Consciousness is awake, alert, obeys commands, Oriented to person, place, time, situation. Cardiovascular: Capillary refill < 3 seconds Patient's skin is warm and dry. Respiratory: Airway is patent Respiratory effort is even, unlabored, Respiratory pattern is regular, symmetrical. GI: No signs and/or symptoms were reported involving the gastrointestinal system. : No signs and/or symptoms were reported regarding the genitourinary system. EENT: No signs and/or symptoms were reported regarding the EENT system. Derm: Skin is intact, is healthy with good turgor, Skin is pink, warm \\T\\ dry. normal. Musculoskeletal: Circulation, motion, and sensation intact. Capillary refill < 3 seconds, Reports pain in left leg. 02/05 00:40 Reassessment: Patient appears in no apparent distress at this time. Patient and/or jb4 family updated on plan of care and expected duration. Pain level reassessed. Patient is alert, oriented x 3, equal unlabored respirations, skin warm/dry/pink. 01:36 Reassessment: Patient appears in no apparent distress at this time. Patient and/or jb4 family updated on plan of care and expected duration. Pain level reassessed. PT is resting in bed with eyes closed, respirations are even and unlabored, no s/s of pain or distress noted. 02:46 Reassessment: Patient appears in no apparent distress at this time. Patient and/or jb4 family updated on plan of care and expected duration. Pain level reassessed. Patient is alert, oriented x 3, equal unlabored respirations, skin warm/dry/pink. Vital Signs: 02/04 23:15 BP 147 / 89; Pulse 102; Resp 19 S; Temp 98.0(TE); Pulse Ox 97% on R/A; Weight 145.15 kg jd3 (R); Height 5 ft. 8 in. (172.72 cm) (R); Pain 7/10; 02/05 00:00 BP 120 / 75; Pulse 103; Resp 18; Pulse Ox 98% on R/A; jb4 01:00 BP 113 / 69; Pulse 67; Resp 16; Pulse Ox 98% on R/A; jb4 02:30 BP 121 / 75; Pulse 76; Resp 16; Pulse Ox 98% on R/A; jb4 02/04 23:15 Body Mass Index 48.66 (145.15 kg, 172.72 cm) jd3 ED Course: 02/04 23:04 Patient arrived in ED. cl3 23:04 Out, [facility] is Private Physician. cl3 23:09 Triage completed. jd3 23:16 Arm band placed on. jd3 23:23 Phylicia Harkins FNP-C [facility]. snw 23:23 Brain Hurst MD is Attending Physician. snw 23:29 Robby Ugarte, MITALI is Primary Nurse. mg2 23:56 Patient has correct armband on for positive identification. mg2 23:56 No provider procedures requiring assistance completed. Patient did not have IV access mg2 during this emergency room visit. 02/05 00:10 Radiology exam delayed due to test not completed at this time. 00:15 Awais Funes, RN is Primary Nurse. jb4 01:10 CT completed. Patient tolerated procedure well. Patient moved to CT via stretcher. Patient moved back from CT. 01:16 Urine Dipstick--Ancillary (enter results) Sent. jb4 01:16 Urine --Ancillary (enter results) Sent. jb4 01:19 CT Lumbar Spine Wo Con In Process Unspecified. EDMS 02:01 US Extremity Venous Unilateral Ltd In Process Unspecified. EDMS Administered Medications: No medications were administered Outcome: 02:10 Discharge ordered by . snw 02:30 Discharged to home via wheelchair. jb4 02:30 Condition: stable 02:30 Discharge instructions given to patient, Instructed on discharge instructions, follow up and referral plans. Demonstrated understanding of instructions, follow-up care. 02:47 Patient left the ED. jb4 Signatures: Dispatcher [employer] EDMS Phylicia Harkins, SWITCHBOARD MANAGER-C SWITCHBOARD MANAGER-Csnw Polo Hackett James RN RN jb4 Luis Manuel Mathis RN RN jd3 Robby Ugarte RN RN mg2 Chun Lamb cl3 Corrections: (The following items were deleted from the chart) 02/04 23:10 23:08 Presenting complaint: Patient states: "I have been having a pinching feeling on jd3 the inside of my left though, I am also having tingling in my foot and knee. I also have what looks like a swollen spot on my left though." jd3 23:29 23:08 Presenting complaint: Patient states: "I have been having a pinching feeling on jd3 the inside of my left though, I am also having tingling in my foot and knee. I also have what looks like a swollen spot on my left though. I took ibuprofen around 2100." jd3
--- NOTE | 2019-02-05 02:13 | EDPHYS ---
Physician Documentation [facility] Name: Emilia Lora Age: 38 yrs Sex: Female : 1980 Arrival Date: 02/04/2019 Time: 23:04 Bed 15 Private MD: Out, [facility] ED Physician Brain Hurst HPI: 02/05 01:13 This 38 yrs old Female presents to ER via Wheelchair with complaints of Thigh snw Injury. 01:13 The patient presents with pain, swelling, tenderness. The complaints affect the snw posterior aspect of left knee, medial aspect of left thigh and dorsum of left foot. Context: The problem was sustained at an unknown site, resulted from an unknown cause, the patient can partially bear weight, the patient is able to ambulate. Onset: The symptoms/episode began/occurred suddenly, today. Associated signs and symptoms: Pertinent positives: swelling, tingling. Severity of symptoms: At their worst the symptoms were moderate. The patient has not experienced similar symptoms in the past. It is unknown whether or not the patient has recently seen a physician. BRUSHER HAND: 02/04 23:15 LMP N/A - Irregular menses jd3 Historical: - Allergies: 23:15 Levofloxacin; jd3 23:15 Cipro; jd3 23:15 Keflex; jd3 23:15 Sulfasalazine; jd3 - Home Meds: 23:15 prednisone 5 mg Oral tab once daily [Active]; Simponi subcutaneous subcutaneous jd3 [Active]; gabapentin 800 mg oral tab 1 tab 3 times per day [Active]; baclofen 20 mg Oral tab 1 tab 3 times per day [Active]; propranolol 20 mg Oral tab 1 tab 3 times per day [Active]; 07/13 (28) 1 mg-20 mcg (21)/75 mg (7) oral tab 1 tab once daily [Active]; Trintellix 10 mg oral tab 1 tab once daily [Active]; - PMHx: 23:15 hypermobility sydrome; Rheumatoid Arthritis; Sleep Apnea; ulcerative colitis; rib cage jd3 cartlige swelling; - PSHx: 23:15 Nephrectomy - Right; Cholecystectomy; Adenoids; Nose; D \T\ C; jd3 - Immunization history:: Adult Immunizations up to date. - Social history:: Smoking status: Patient/guardian denies using tobacco. - Ebola Screening: : Patient negative for fever greater than or equal to 101.5 degrees Fahrenheit, and additional compatible Ebola Virus Disease symptoms. ROS: 23:58 Constitutional: Negative for fever, chills, and weight loss, Eyes: Negative for injury, snw pain, redness, and discharge, ENT: Negative for injury, pain, and discharge, Neck: Negative for injury, pain, and swelling, Cardiovascular: Negative for chest pain, palpitations, and edema, Respiratory: Negative for shortness of breath, cough, wheezing, and pleuritic chest pain, Abdomen/GI: Negative for abdominal pain, nausea, vomiting, diarrhea, and constipation, Back: Negative for injury and pain, : Negative for injury, bleeding, discharge, and swelling, Skin: Negative for injury, rash, and discoloration, Neuro: Negative for headache, weakness, numbness, tingling, and seizure. 23:58 MS/extremity: Positive for pain, tingling, of the left leg. Exam: 23:56 Constitutional: This is a well developed, well nourished patient who is awake, alert, snw and in no acute distress. Head/Face: Normocephalic, atraumatic. Eyes: Pupils equal round and reactive to light, extra-ocular motions intact. Lids and lashes normal. Conjunctiva and sclera are non-icteric and not injected. Cornea within normal limits. Periorbital areas with no swelling, redness, or edema. ENT: Nares patent. No nasal discharge, no septal abnormalities noted. Tympanic membranes are normal and external auditory canals are clear. Oropharynx with no redness, swelling, or masses, exudates, or evidence of obstruction, uvula midline. Mucous membranes moist. Neck: Trachea midline, no thyromegaly or masses palpated, and no cervical lymphadenopathy. Supple, full range of motion without nuchal rigidity, or vertebral point tenderness. No Meningismus. Chest/axilla: Normal chest wall appearance and motion. Nontender with no deformity. No lesions are appreciated. Cardiovascular: Tachycardic rate and rhythm with a normal S1 and S2. No gallops, murmurs, or rubs. Normal PMI, no JVD. No pulse deficits. Respiratory: Lungs have equal breath sounds bilaterally, clear to auscultation and percussion. No rales, rhonchi or wheezes noted. No increased work of breathing, no retractions or nasal flaring. Abdomen/GI: Soft, non-tender, with normal bowel sounds. No distension or tympany. No guarding or rebound. No evidence of tenderness throughout. Back: No spinal tenderness. No costovertebral tenderness. Full range of motion. Psych: Awake, alert, with orientation to person, place and time. Behavior, mood, and affect are within normal limits. 23:56 Musculoskeletal/extremity: ROM: no acute changes, Pulses: are normal with no appreciated deficits, the instep of right foot, medial aspect of right toes, plantar aspect of right first toe and right first toe numbness, Calves: are tender, medially. 23:56 Skin: Appearance: Color: pale, Moisture: dry. 23:56 Neuro: Orientation: is normal, Deep tendon reflexes are normal, seizure activity, is not displayed by the patient. Vital Signs: 23:15 BP 147 / 89; Pulse 102; Resp 19 S; Temp 98.0(TE); Pulse Ox 97% on R/A; Weight 145.15 kg jd3 (R); Height 5 ft. 8 in. (172.72 cm) (R); Pain 7/10; 02/05 00:00 BP 120 / 75; Pulse 103; Resp 18; Pulse Ox 98% on R/A; jb4 01:00 BP 113 / 69; Pulse 67; Resp 16; Pulse Ox 98% on R/A; jb4 02:30 BP 121 / 75; Pulse 76; Resp 16; Pulse Ox 98% on R/A; jb4 02/04 23:15 Body Mass Index 48.66 (145.15 kg, 172.72 cm) jd3 MDM: 02/04 23:40 Patient medically screened. snw 02/05 02:11 Data reviewed: vital signs, nurses notes. Data interpreted: Pulse oximetry: on room air snw is 98 %. Interpretation: normal. Counseling: I had a detailed discussion with the patient and/or guardian regarding: the historical points, exam findings, and any diagnostic results supporting the discharge/admit diagnosis, lab results, radiology results, the need for outpatient follow up, to return to the emergency department if symptoms worsen or persist or if there are any questions or concerns that arise at home. Special discussion: Based on the history and exam findings, there is no indication for further emergent testing or inpatient evaluation. I discussed with the patient/guardian the need to see the primary care provider for further evaluation of the symptoms. I discussed with the patient/guardian the need to see the chef's assistant for further evaluation of the symptoms. 02/05 00:38 Order name: Urine Dipstick--Ancillary (enter results) [facility] 02/05 00:38 Order name: Urine --Ancillary (enter results) [facility] 02/04 23:55 Order name: US Extremity Venous Unilateral Ltd [facility] 02/04 23:55 Order name: CT Lumbar Spine Wo Con w 02/05 00:56 Order name: Urine --Ancillary; Complete Time: 01:13 EDMS 02/05 00:56 Order name: Urine Dipstick-Ancillary; Complete Time: 01:13 EDMS Administered Medications: No medications were administered Disposition: 02/05/19 02:10 Discharged to Home. Impression: Paresthesia of skin, Pain in left leg, Radiculopathy, lumbosacral region. - Condition is Stable. - Discharge Instructions: Leg Cramps, Lumbosacral Radiculopathy, Musculoskeletal Pain, Pain Without a Known Cause, Neuropathic Pain, Paresthesia, Peripheral Neuropathy, Cryotherapy, Heat Therapy. - Work release form, Medication Reconciliation Form, Thank You Letter, Antibiotic Education, Prescription Opioid Use form. - Follow up: Private Physician; When: 1 - 2 days; Reason: Recheck today's complaints, Continuance of care, Re-evaluation by your physician. Follow up: Emergency Department; When: As needed; Reason: Worsening of condition. Signatures: [facility] Phylicia Harkins, DROP SHIPMENT CLERK-C DROP SHIPMENT CLERK-Csnw Awais Funes RN RN jb4 Luis Manuel Mathis RN RN jd3 Corrections: (The following items were deleted from the chart) 02:47 02:10 02/05/2019 02:10 Discharged to Home. Impression: Paresthesia of skin; Pain in jb4 left leg; Radiculopathy, lumbosacral region. Condition is Stable. Forms are Medication Reconciliation Form, Thank You Letter, Antibiotic Education, Prescription Opioid Use. Follow up: Private Physician; When: 1 - 2 days; Reason: Recheck today's complaints, Continuance of care, Re-evaluation by your physician. Follow up: Emergency Department; When: As needed; Reason: Worsening of condition. snw
[2019-02-05 05:04] VITALS: O2SAT 98
[2019-02-05 05:08] VITALS: BP 121/75
[2019-02-05 05:38] VITALS: TEMP 97.9
--- NOTE | 2019-02-05 07:26 | RAD REPORT ---
EXAM DESCRIPTION: US - Extremity Venous Uni Ltd - 02/05/2019 2:01 am CLINICAL HISTORY: Left leg pain and swelling Preliminary findings provided at time of the study. COMPARISON: None. TECHNIQUE: Real-time sonographic evaluation of the left lower extremity deep venous system was perfo rmed. FINDINGS: Normal compressibility, flow augmentation, phasic flow and spontaneous flow are identified in the left lower extremity common femoral, superficial femoral, popliteal and posterior tibial vein s. No intraluminal filling defects seen. IMPRESSION: No DVT in the left lower extremity.
--- NOTE | 2019-02-05 09:33 | RAD REPORT ---
EXAM DESCRIPTION: CT - Spine Lumbar Wo Con - 02/05/2019 1:49 am CLINICAL HISTORY: Numbness/tingling; Pain. COMPARISON: None. TECHNIQUE: CT scan of the lumbar spine without IV contrast. This exam was performed according to o departmental dose-optimization program, which includes automated exposure control, adjustment of t he mA and/or kV according to patient size and/or use of iterative reconstruction technique. FINDINGS: No acute compression fracture is seen. The lumbar alignment is maintained. The disc spaces and facet joints are preserved. No advanced canal stenosis is identified. The sacroiliac joints are intact. IMPRESSION: No acute compression fracture or high-grade canal stenosis of the lumbar spine. Electronically signed by: Abebe Sin MD 02/05/2019 1:43 AM CDT Due to temporary technical issues with the PACS/Fluency reporting system, reports are being signed by the in house radiologist as a courtesy to ensure prompt reporting. The interpreting radiologist is f ully responsible for the content of the report.
== END 2019-02-05 02:47 | disposition home or self-care (01) ==
LOC: ER 23:00
DX: M54.17 Radiculopathy, lumbosacral region (principal); M79.605 Pain in left leg; R20.2 Paresthesia of skin; M06.9 Rheumatoid arthritis, unspecified; Z88.1 Allergy status to other antibiotic agents
CPT/HCPCS: 72131; 81003; 81025; 93971; 99284

== ENCOUNTER 2019-03-01 14:36 | Emergency (ER) | payer OTHER ==
--- OUTSIDE RECORDS SUMMARY | 2019-03-01 14:41 | XMS REPORT | Clinical Summary ---
:1980 Author Organization [facility] Address [address] [place] [address] Care Team Providers Name Role Phone Ana [...] Not on file Results Not on fileafter 02/28/2018 Insurance Payer Benefit Plan / Subscriber ID Type Phone Address Group BLUE CROSS/BLUE BCBS PPO POS EPO xxxxxxxxxxxx PPO [phone] [address] [place] [address]
--- OUTSIDE RECORDS SUMMARY | 2019-03-01 14:41 | XMS REPORT | Clinical Summary ---
:1980 Author Organization [facility] Address [address] [place] [address] Care Team Providers Name Role Phone Amanda [...] tablet escitalopram Take 20 mg by 0 03/20/20 Active (LEXAPRO) 20 MG mouth daily. 16 tablet L. RHAMNOSUS Take 1 tablet by [...] (24)/75 mg (4) per tablet clonAZEPAM 0 06/02/20 Active (KlonoPIN) 0.5 MG 16 tablet mometasone 2 sprays into 17 g 3 10/02/19 Active (NASONEX) 50 each nostril 17 mcg/actuation nasal daily. spray albuterol (PROAIR Inhale 1-2 puffs 18 g 3 10/02/19 Active HFA,PROVENTIL every 6 (six) 17 HFA,VENTOLIN HFA) hours as needed 90 mcg/actuation for shortness of inhaler breath. ADVAIR DISKUS INHALE ONE PUFF 60 each 0 04/24/20 Active 500-50 mcg/dose BY MOUTH TWICE A 17 DISKUS DAY cetirizine (ZyrTEC) TAKE ONE TABLET 30 tablet 0 08/14/19 Active 10 MG tablet BY MOUTH DAILY 18 hydrOXYzine TAKE ONE TABLET 30 tablet 0 08/14/19 Active (ATARAX) 25 MG BY MOUTH DAILY 18 tablet SIMPONI 50 mg/0.5 INJECT 1 PEN (50 1 Syringe 2 10/02/19 Active mL pen MG) 18 injectorIndications SUBCUTANEOUSLY : Inflammatory EVERY 28 DAYS. polyarthropathy (HCC), Enteropathic arthritis, Moderate chronic ulcerative colitis with complication (HCC), Acute bilateral low back pain with sciatica, sciatica laterality unspecified, Chronic low back pain with sciatica, sciatica laterality unspecified, unspecified back pain laterality azaTHIOprine Take 3 tablets 90 tablet 1 10/01/19 Active (IMURAN) 50 mg (150 mg total) by 19 019 tablet mouth daily for 180 days. gabapentin Take 1 tablet 90 tablet 11 04/23/20 (NEURONTIN) 600 mg (600 mg total) by 17 018 tabletIndications: mouth 3 (three) Inflammatory times a day. polyarthritis (HCC), Enteropathic arthritis, Chronic midline low back pain without sciatica, Cervical radiculopathy, Encounter for monitoring azathioprine therapy, Ulcerative colitis with complication, unspecified location (HCC), Neuropathy, Vitamin D insufficiency, Weakness baclofen (LIORESAL) Take 1 tablet (20 180 tablet 0 02/26/20 Discontinued 20 MG mg total) by 18 018 (Reorder) tabletIndications: mouth 2 (two) Cervical times a day for radiculopathy, 90 days. Myalgia predniSONE Take 1-3 tablets 90 tablet 0 02/26/20 (DELTASONE) 5 mg (5-15 mg total) 18 018 tabletIndications: by mouth daily as Cervical needed (joint radiculopathy, pain and Myalgia swelling) for up to 30 days. azaTHIOprine Take 3 tablets 90 tablet 0 03/05/20 Discontinued (IMURAN) 50 mg (150 mg total) by 18 018 (Reorder) tablet mouth daily for 30 days. azaTHIOprine TAKE THREE 90 tablet 0 04/03/20 Discontinued (IMURAN) 50 mg TABLETS BY MOUTH 18 018 (Reorder) tablet DAILY predniSONE TAKE ONE TO TWO 60 tablet 0 04/17/20 Discontinued (DELTASONE) 5 mg TABLETS BY MOUTH 18 018 (Reorder) tablet EVERY DAY NEEDED FOR JOINT PAIN FOR UP TO 30 DAYS predniSONE TAKE 1 TO 3 90 tablet 0 04/18/20 Discontinued (DELTASONE) 5 mg TABLETS BY MOUTH 18 018 (Reorder) tablet EVERY DAY NEEDED FOR JOINT PAIN gabapentin TAKE 1 TABLET BY 90 tablet 10 04/30/20 Discontinued (NEURONTIN) 600 mg MOUTH THREE TIMES 18 018 (Reorder) tablet DAILY azaTHIOprine Take 3 tablets 90 tablet 0 05/22/20 Discontinued (IMURAN) 50 mg (150 mg total) by 18 019 (Reorder) tablet mouth daily for 30 days. baclofen (LIORESAL) Take 1 tablet (20 180 tablet 0 05/26/20 Discontinued 20 MG mg total) by 18 019 (Reorder) tabletIndications: mouth 2 (two) Cervical times a day for radiculopathy, 90 days. Myalgia predniSONE Take 1-3 tablets 90 tablet 0 05/26/20 Discontinued (DELTASONE) 5 mg (5-15 mg total) 18 019 (Reorder) tablet by mouth daily for 30 days. gabapentin Take 1 tablet 90 tablet 10 05/26/20 Discontinued (NEURONTIN) 600 mg (600 mg total) by 18 019 (Reorder) tablet mouth 3 (three) times a day. azaTHIOprine Take 3 tablets 90 tablet 0 06/30/19 Discontinued (IMURAN) 50 mg (150 mg total) by 19 019 (Reorder) tablet mouth daily for 30 days. azaTHIOprine TAKE THREE 90 tablet 0 06/30/19 (IMURAN) 50 mg TABLETS BY MOUTH 19 019 tablet DAILY predniSONE Take 1-3 tablets 90 tablet 0 07/01/19 Discontinued (DELTASONE) 5 mg (5-15 mg total) 19 019 (Reorder) tablet by mouth daily for 30 days. azaTHIOprine TAKE THREE 90 tablet 0 07/31/19 (IMURAN) 50 mg TABLETS BY MOUTH 19 019 tablet DAILY azaTHIOprine Take 3 tablets 90 tablet 0 07/31/19 Discontinued (IMURAN) 50 mg (150 mg total) by 19 019 (Reorder) tablet mouth daily for 30 days. predniSONE Take 1-3 tablets 90 tablet 0 08/01/19 (DELTASONE) 5 mg (5-15 mg total) 19 019 tablet by mouth daily for 30 days. baclofen (LIORESAL) Take 1 tablet (20 180 tablet 0 08/15/19 Discontinued 20 MG mg total) by 019 (Reorder) tabletIndications: mouth 2 (two) Cervical times a day for radiculopathy, 90 days. Myalgia gabapentin Take 1 tablet 90 tablet 2 08/26/19 Discontinued (NEURONTIN) 800 mg (800 mg total) by 019 (Reorder) tablet mouth 3 (three) times a day for 90 days. azaTHIOprine TAKE THREE 90 tablet 1 09/02/19 Discontinued (IMURAN) 50 mg TABLETS BY MOUTH 019 (Reorder) tablet DAILY predniSONE Take 1 tablet (5 60 tablet 1 09/10/19 Discontinued (DELTASONE) 5 mg mg total) by 019 (Reorder) tabletIndications: mouth 2 (two) Myalgia times a day for 60 days. golimumab (SIMPONI) Inject 50 mg 3 Syringe 0 09/11/19 50 mg/0.5 mL pen under the skin injector every 28 days for 90 days. [facility] 95451-702-69, Lot [id number],expires 01/09 predniSONE Take 1 tablet (5 60 tablet 1 10/01/19 (DELTASONE) 5 mg mg total) by 019 tabletIndications: mouth 2 (two) Myalgia times a day for 60 days. baclofen (LIORESAL) Take 1 tablet (20 180 tablet 0 10/14/19 20 MG mg total) by 019 tabletIndications: mouth 2 (two) Cervical times a day for radiculopathy, 90 days. Myalgia gabapentin Take 1 tablet 90 tablet 2 10/14/19 (NEURONTIN) 800 mg (800 mg total) by 019 tablet mouth 3 (three) times a day for 90 [...] Manda Hall MD 01/01/2019 Documentation Rheumatology Kerrie Anderson MA Records release 10/13/2018 Orders Only Rheumatology Mary Mtz MD Cervical radiculopathy ; Myalgia 10/09/2018 Refill Rheumatology Mary Mtz MD Cervical radiculopathy; Myalgia 09/29/2018 Refill Rheumatology Mary Mtz MD Myalgia 09/10/2018 Clinical Support Rheumatology 09/10/2018 Refill Rheumatology Kerrie Anderson MA 09/10/2018 Orders Only Rheumatology Kerrie Anderson MA Myalgia (Primary Dx ) 09/09/2018 Refill Rheumatology Kerrie Anderson MA Myalgia (Primary Dx) 09/08/2018 Refill Rheumatology Mary Mtz MD 09/01/2018 [...] 03/05/2018 Orders Only Rheumatology Mary Mtz MD after 02/28/2018 Immunizations Name Administration Dates Next Due FLUZONE QUAD PF 04/17/2016 Family History Medical History [...] Grandmother Bates Sharla Cancer Maternal Grandmother Bates [place] Terminal liver cancer GERD Maternal Grandmother Bates Sharla Liver cancer Maternal Grandmother [place] Ulcerative colitis Maternal Grandmother Bates Sharla Arthritis Mother Kiarra Vision loss Mother Kiarra Psuedo-tumor cerebri Alcohol abuse Sister Ena Depression Sister Ena Irritable bowel syndrome Sister Ena Learning disabilities Sister Ena ADD Mental illness Sister Ena PTSD, anxiety Relation Name Status Comments Brother Jeronimo Brother Dave Father Norberto Maternal Grandfather Mahnaz Maternal Grandmother [place] Mother Kiarra Sister Ena Social History Tobacco [...] 01/22/2019 04/17/2016, 04/13/2015 Results Not on fileafter 02/28/2018 Advance Directives For more information, please contact: [phone] Type Date Recorded Patient Frame Fixer Explanation Advance Directives, Living Will and Medical Power of Employee Benefits Director
[2019-03-01 15:26] LABS: Absolute Lymphocytes (CBC) 3.4 K/uL (0.7-4.9); Basophils % 1.3 % (0-1.3); Hematocrit 40.8 % (36.0-45.0); Lymphocytes % 21.7 % (15.3-44.8); MPV 8.7 fL (7.6-11.3); RBC Red Blood Cell Count 4.44 M/uL (3.86-4.86)
[2019-03-01 15:52] LABS: ALT/SGPT 21 U/L (12-78); AST/SGOT 34 U/L (15-37); Albumin 3.3 g/dL (3.4-5.0); Alkaline Phosphatase 65 U/L (45-117); BUN Blood Urea Nitrogen 23 mg/dL (7-18); Bicarbonate 23 mmol/L (21-32); Bilirubin Direct < 0.1 mg/dL (0-0.2); Bilirubin Total 0.4 mg/dL (0.2-1.0); Glucose Level 103 mg/dL (74-106); Lipase 151 U/L (73-393); Potassium 4.7 mmol/L (3.5-5.1); Protein, Total 7.3 g/dL (6.4-8.2); Sodium Level 140 mmol/L (136-145)
[2019-03-01 16:23] LABS: Blood Morphology Comment NOT SEEN (NOT SEEN); Platelet Estimate ADEQ; Urine White Blood Cell Casts OK
--- NOTE | 2019-03-01 17:12 | RAD REPORT ---
EXAM DESCRIPTION: CTAbdomen Pelvis W Contrast - 03/01/2019 5:03 pm CLINICAL HISTORY: Abdominal pain. ABD PAIN COMPARISON: <Comparisons> TECHNIQUE: Biphasic CT imaging of the abdomen and pelvis was performed with 100 ml non-ionic IV cont rast. All CT scans are performed using dose optimization technique as appropriate and may include automated exposure control or mA/KV adjustment according to patient size. FINDINGS: The lung bases are clear. Cholecystectomy. The liver, spleen, pancreas, adrenal glands and left kidney are within normal limits. Right nephrecto my. No bowel obstruction, free air, free fluid or abscess. The appendix is normal. No evidence of signi ficant lymphadenopathy. No suspicious bony findings. IMPRESSION: No acute intra-abdominal or pelvic finding.
--- NOTE | 2019-03-01 17:29 | EDPHYS ---
Physician Documentation [facility] Name: Emilia Lora Age: 38 yrs Sex: Female : 1980 Arrival Date: 03/01/2019 Time: 14:38 Bed 20 Private MD: out of town, doctor ED Physician Karsten Vernon HPI: 03/01 16:28 This 38 yrs old Female presents to ER via Ambulatory with complaints of jr8 Abdominal Pain, Bloody Stools, Nausea. 16:28 The patient presents with abdominal pain in the periumbilical area. Onset: The jr8 symptoms/episode began/occurred acutely, today. The symptoms do not radiate. Associated signs and symptoms: Pertinent positives: blood in stools, nausea. The symptoms are described as sharp. Modifying factors: The symptoms are alleviated by nothing, the symptoms are aggravated by nothing. Severity of pain: At its worst the pain was moderate in the emergency department the pain is unchanged. The patient has not experienced similar symptoms in the past. The patient has not recently seen a physician. Stated that she saw black flecks in stool. Has had several episodes of soft stool today. No vomiting, fevers, or diarrhea . 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 THERAPY SINCE 2007 rv Historical: - Allergies: 15:03 Cipro; rv 15:03 Keflex; rv 15:03 Levofloxacin; rv 15:03 Sulfasalazine; rv - Home Meds: 15:03 baclofen 20 mg Oral tab 1 tab 3 times per day [Active]; gabapentin 800 mg Oral tab 1 rv tab 3 times per day [Active]; 07/13 (28) 1 mg-20 mcg (21)/75 mg (7) Oral tab 1 tab once daily [Active]; prednisone 5 mg Oral tab once daily [Active]; propranolol 20 mg Oral tab 1 tab 3 times per day [Active]; Simponi subcutaneous [Active]; Trintellix 10 mg Oral tab 1 tab once daily [Active]; - PMHx: 15:03 hypermobility sydrome; Rheumatoid Arthritis; rib cage cartlige swelling; Sleep Apnea; rv ulcerative colitis; - PSHx: 15:03 RIGHT KIDNEY TAKEN OUT; rv - Immunization history:: Adult Immunizations up to date. - Social history:: Smoking status: Patient uses tobacco products. - Ebola Screening: : No symptoms or risks identified at this time. ROS: 16:28 Eyes: Negative for injury, pain, redness, and discharge, ENT: Negative for injury, jr8 pain, and discharge, Neck: Negative for injury, pain, and swelling, Cardiovascular: Negative for chest pain, palpitations, and edema, Respiratory: Negative for shortness of breath, cough, wheezing, and pleuritic chest pain, Back: Negative for injury and pain, MS/Extremity: Negative for injury and deformity, Skin: Negative for injury, rash, and discoloration, Neuro: Negative for headache, weakness, numbness, tingling, and seizure. 16:28 Abdomen/GI: Positive for abdominal pain, Negative for nausea, vomiting, and diarrhea, constipation, abdominal cramps, abdominal distension, anorexia, dysphagia, hematemesis, rectal pain, rectal bleeding, bowel incontinence, flatulence. Exam: 16:28 Eyes: Pupils equal round and reactive to light, extra-ocular motions intact. Lids and jr8 lashes normal. Conjunctiva and sclera are non-icteric and not injected. Cornea within normal limits. Periorbital areas with no swelling, redness, or edema. ENT: Nares patent. No nasal discharge, no septal abnormalities noted. Tympanic membranes are normal and external auditory canals are clear. Oropharynx with no redness, swelling, or masses, exudates, or evidence of obstruction, uvula midline. Mucous membranes moist. Neck: Trachea midline, no thyromegaly or masses palpated, and no cervical lymphadenopathy. Supple, full range of motion without nuchal rigidity, or vertebral point tenderness. No Meningismus. Cardiovascular: Regular rate and rhythm with a normal S1 and S2. No gallops, murmurs, or rubs. Normal PMI, no JVD. No pulse deficits. Respiratory: Lungs have equal breath sounds bilaterally, clear to auscultation and percussion. No rales, rhonchi or wheezes noted. No increased work of breathing, no retractions or nasal flaring. Back: No spinal tenderness. No costovertebral tenderness. Full range of motion. Skin: Warm, dry with normal turgor. Normal color with no rashes, no lesions, and no evidence of cellulitis. MS/ Extremity: Pulses equal, no cyanosis. Neurovascular intact. Full, normal range of motion. Neuro: Awake and alert, GCS 15, oriented to person, place, time, and situation. Cranial nerves II-XII grossly intact. Motor strength 5/5 in all extremities. Sensory grossly intact. Cerebellar exam normal. Normal gait. 16:28 Abdomen/GI: Inspection: obese Bowel sounds: active, all quadrants, Palpation: soft, in all quadrants, moderate abdominal tenderness, in the umbilical area, mass, is not appreciated, rebound tenderness, is not appreciated, voluntary guarding, is not appreciated, involuntary guarding, is not appreciated, no appreciated organomegaly, Indicators: McBurney's point is not tender, Delarosa's sign is negative, Rovsing's sign is negative, Liver: tenderness, is not appreciated. Vital Signs: 15:04 BP 128 / 88; Pulse 105; Resp 15; Temp 98.8; Pulse Ox 95% on R/A; Weight 145.15 kg (R); rv Height 5 ft. 9 in. (175.26 cm) (R); 15:30 BP 120 / 67; Pulse 93; Resp 16; Pulse Ox 99% on R/A; Pain 5/10; em 17:25 BP 130 / 64; Pulse 88; Resp 18; Pulse Ox 99% on R/A; Pain 5/10; em 15:04 Body Mass Index 47.26 (145.15 kg, 175.26 cm) rv MDM: 14:56 Patient medically screened. jr8 17:27 Data reviewed: vital signs, nurses notes, lab test result(s), radiologic studies, CT jr8 scan. Data interpreted: Pulse oximetry: on room air is 99 %. Interpretation: normal. Counseling: I had a detailed discussion with the patient and/or guardian regarding: the historical points, exam findings, and any diagnostic results supporting the discharge/admit diagnosis, lab results, radiology results, the need for outpatient follow up, a family practitioner, a sand mixer machine, to return to the emergency department if symptoms worsen or persist or if there are any questions or concerns that arise at home. 03/01 14:57 Order name: Basic Metabolic Panel; Complete Time: 15:57 03/01 14:57 Order name: CBC with Diff; Complete Time: 16:30 03/01 14:57 Order name: Creatinine for Radiology; Complete Time: 15:57 03/01 14:57 Order name: Hepatic Function; Complete Time: 15:57 [facility] 03/01 14:57 Order name: Lipase; Complete Time: 15:57 [facility] 03/01 15:30 Order name: CBC Smear Scan; Complete Time: 16:30 [facility] 03/01 14:57 Order name: IV Saline Lock; Complete Time: 15:18 [facility] 03/01 14:57 Order name: Labs collected and sent; Complete Time: 15:18 [facility] 03/01 15:57 Order name: CT Abd/Pelvis - IV Contrast Only; Complete Time: 17:27 [facility] 03/01 16:36 Order name: Urine Dipstick--Ancillary (enter results) eb 03/01 16:36 Order name: Urine --Ancillary (enter results) eb Administered Medications: 17:39 Drug: Zofran 4 mg {Note: RASS-0.} Route: IVP; Site: right antecubital; ss 17:58 Follow up: Response: No adverse reaction em 17:41 Drug: fentaNYL (PF) 50 mcg {Note: RASS-0.} Route: IVP; Site: right antecubital; ss 17:58 Follow up: Response: No adverse reaction; Pain is decreased em Disposition: 18:08 Co-signature as Attending Physician, Karsten Vernon MD. rn Disposition: 03/01/19 17:28 Discharged to Home. Impression: Generalized abdominal pain. - Condition is Stable. - Discharge Instructions: Abdominal Pain, Adult. - Prescriptions for Bentyl 20 mg Oral Tablet - take 1 tablet by ORAL route every 6 hours As needed; 20 tablet. - Medication Reconciliation Form, Thank You Letter, Antibiotic Education, Prescription Opioid Use form. - Follow up: Private Physician; When: 1 - 2 days; Reason: Recheck today's complaints, Continuance of care, Re-evaluation by your physician. - Problem is new. - Symptoms have improved. Signatures: Dispatcher [employer] [facility] Chris Carrero, HEAD OF CONSERVATION HEAD OF CONSERVATION Karsten Hassan MD MD rn Smirch, Shelby, RN RN ss Roszak, Josh, PA PA jr8 Rosalino Mcgee RN RN rv Corrections: (The following items were deleted from the chart) 17:58 17:28 03/01/2019 17:28 Discharged to Home. Impression: Generalized abdominal pain. em Condition is Stable. Forms are Medication Reconciliation Form, Thank You Letter, Antibiotic Education, Prescription Opioid Use. Follow up: Private Physician; When: 1 - 2 days; Reason: Recheck today's complaints, Continuance of care, Re-evaluation by your physician. Problem is new. Symptoms have improved. jr8
--- NOTE | 2019-03-01 17:29 | ER ---
Nurse's Notes [facility] Name: Emilia Lora Age: 38 yrs Sex: Female : 1980 Arrival Date: 03/01/2019 Time: 14:38 Bed 20 Private MD: out of town, doctor Diagnosis: Generalized abdominal pain Presentation: 03/01 14:54 Presenting complaint: Patient states: PAIN STARTED AT 5AM AND IT WOKE ME UP. IT IS LIKE rv SHARP PAIN ON MY BELLY BUTTON, AND FOR THE LAST HOUR IT WENT TO MY WHOLE BELLY (POINTS TO THE RUQ), DESCRIBES THE PAINT TO BE LIKE CRAMPING NOW. PATIEN ALSO HAD 8X BOWEL MOVEMENT TODAY WITH DARK STOOL. Transition of care: patient was not received from another setting of care. Onset of symptoms was March 01, 2019 at 05:00. Risk Assessment: Do you want to hurt yourself or someone else? Patient reports no desire to harm self or others. Care prior to arrival: None. 14:54 Method Of Arrival: Ambulatory rv 14:54 Acuity: VINITA 3 rv 15:15 Initial Sepsis Screen: Does the patient meet any 2 criteria? No. Patient's initial em sepsis screen is negative. Does the patient have a suspected source of infection? No. Patient's initial sepsis screen is negative. Triage Assessment: 15:05 General: Appears in no apparent distress. uncomfortable, Behavior is calm, cooperative. rv Pain: Complains of pain in abdomen. EENT: No signs and/or symptoms were reported regarding the EENT system. Neuro: Level of Consciousness is awake, alert, obeys commands, Oriented to person, place, time, situation. Cardiovascular: Patient's skin is warm and dry. Respiratory: Reports. GI: Abdomen is flat. : No signs and/or symptoms were reported regarding the genitourinary system. Derm: No signs and/or symptoms reported regarding the dermatologic system. Musculoskeletal: No signs and/or symptoms reported regarding the musculoskeletal system. 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 - HORMONAL THERAPY SINCE 2007 rv Historical: - Allergies: 15:03 Cipro; rv 15:03 Keflex; rv 15:03 Levofloxacin; rv 15:03 Sulfasalazine; rv - Home Meds: 15:03 baclofen 20 mg Oral tab 1 tab 3 times per day [Active]; gabapentin 800 mg Oral tab 1 rv tab 3 times per day [Active]; 07/13 (28) 1 mg-20 mcg (21)/75 mg (7) Oral tab 1 tab once daily [Active]; prednisone 5 mg Oral tab once daily [Active]; propranolol 20 mg Oral tab 1 tab 3 times per day [Active]; Simponi subcutaneous [Active]; Trintellix 10 mg Oral tab 1 tab once daily [Active]; - PMHx: 15:03 hypermobility sydrome; Rheumatoid Arthritis; rib cage cartlige swelling; Sleep Apnea; rv ulcerative colitis; - PSHx: 15:03 RIGHT KIDNEY TAKEN OUT; rv - Immunization history:: Adult Immunizations up to date. - Social history:: Smoking status: Patient uses tobacco products. - Ebola Screening: : No symptoms or risks identified at this time. Screenin:15 Abuse screen: Denies threats or abuse. Nutritional screening: No deficits noted. em Tuberculosis screening: No symptoms or risk factors identified. 15:15 Fall Risk None identified. em Assessment: 15:15 General: Appears in no apparent distress. comfortable, Behavior is calm, cooperative, em appropriate for age. Pain: Complains of pain in umbilical area Pain currently is 5 out of 10 on a pain scale. Aggravated by exercise, increased activity, repositioning. Neuro: Level of Consciousness is awake, alert, obeys commands, Oriented to person, place, time, situation, Appropriate for age. Cardiovascular: Capillary refill < 3 seconds Patient's skin is warm and dry. Respiratory: Airway is patent Respiratory effort is even, unlabored, Respiratory pattern is regular, symmetrical. GI: Abdomen is round non-distended, Bowel sounds present X 4 quads. Abd is soft X 4 quads Abdomen is tender to palpation in umbilical area Patient currently denies diarrhea, nausea, vomiting. : No signs and/or symptoms were reported regarding the genitourinary system. Derm: Skin is intact, is healthy with good turgor, Skin is pink, warm \T\ dry. Musculoskeletal: Capillary refill < 3 seconds, Range of motion: intact in all extremities. 15:20 General: The previous assessment is accurate, call light remains within reachl. ss 16:30 Reassessment: Patient appears in no apparent distress at this time. Patient and/or em family updated on plan of care and expected duration. Pain level reassessed. Patient is alert, oriented x 3, equal unlabored respirations, skin warm/dry/pink. 17:30 Reassessment: Patient appears in no apparent distress at this time. Patient and/or em family updated on plan of care and expected duration. Pain level reassessed. Patient is alert, oriented x 3, equal unlabored respirations, skin warm/dry/pink. request pain medication, provider notified. Vital Signs: 15:04 BP 128 / 88; Pulse 105; Resp 15; Temp 98.8; Pulse Ox 95% on R/A; Weight 145.15 kg (R); rv Height 5 ft. 9 in. (175.26 cm) (R); 15:30 BP 120 / 67; Pulse 93; Resp 16; Pulse Ox 99% on R/A; Pain 5/10; em 17:25 BP 130 / 64; Pulse 88; Resp 18; Pulse Ox 99% on R/A; Pain 5/10; em 15:04 Body Mass Index 47.26 (145.15 kg, 175.26 cm) rv ED Course: 14:38 Patient arrived in ED. ag5 14:38 None, None is Private Physician. ag5 14:38 Out, of Town is Private Physician. ag5 14:38 out of town, doctor is Private Physician. ag5 14:45 Karol Valdez, MITALI is Primary Nurse. aj1 14:56 Juan Jose Crawford PA is PHCP. jr8 14:56 Karsten Vernon MD is Attending Physician. jr8 14:58 Triage completed. rv 15:15 Inserted saline lock: 20 gauge in left antecubital area, using aseptic technique. Blood jp3 collected. Patient maintains SpO2 saturation greater than 95% on room air. 15:15 Initial lab(s) drawn, by me, sent to lab. jp3 15:15 Patient has correct armband on for positive identification. Bed in low position. Side em rails up X2. Pulse ox on. NIBP on. 16:06 Arm band placed on. em 16:30 Radiology exam delayed due to IV insertion attempt and/or patient not having bq appropriate IV at this time. 16:59 CT completed. Patient tolerated procedure well. Patient moved back from CT. mw3 17:03 CT Abd/Pelvis - IV Contrast Only In Process Unspecified. EDMS 17:56 No provider procedures requiring assistance completed. IV discontinued, intact, em bleeding controlled, No redness/swelling at site. Pressure dressing applied. Administered Medications: 17:39 Drug: Zofran 4 mg {Note: RASS-0.} Route: IVP; Site: right antecubital; 17:58 Follow up: Response: No adverse reaction em 17:41 Drug: fentaNYL (PF) 50 mcg {Note: RASS-0.} Route: IVP; Site: right antecubital; ss 17:58 Follow up: Response: No adverse reaction; Pain is decreased em Outcome: 17:28 Discharge ordered by MD. wood 17:56 Discharged to home ambulatory. em 17:56 Condition: good 17:56 Discharge instructions given to patient, Instructed on discharge instructions, follow up and referral plans. medication usage, Demonstrated understanding of instructions, follow-up care, medications, Prescriptions given X 1. 17:58 Patient left the ED. em Signatures: Dispatcher [employer] [facility] Karol Valdez RN RN aj1 Juani Partida Chris Carrero, RN CIRCULATING RN CIRCULATING em Debi Garner RN RN Juan Jose Crawford PA PA jr8 Beatrice Brewster mw3 Rosalino Mcgee RN RN Abdirashid Hancock jp3 Luma Catherine 5
[2019-03-01] MEDS ORDERED: FENTANYL CITR 100 MCG/2 ML ONE (17:33)
[2019-03-01] MEDS ORDERED: ONDANSETRON 4 MG/2 ML VIAL ONE (17:33)
[2019-03-01 20:17] LABS: Urine Blood 2+ (NEG); Urine Glucose NEGATIVE (NEG); Urine Protein NEGATIVE (NEG)
[2019-03-01 20:52] VITALS: TEMP 98.8
[2019-03-01 21:03] VITALS: O2SAT 99
[2019-03-01 21:05] VITALS: BP 130/64
== END 2019-03-01 17:58 | disposition home or self-care (01) ==
LOC: ER 14:36
DX: R10.84 Generalized abdominal pain (principal); Z72.0 Tobacco use; Z88.1 Allergy status to other antibiotic agents; Z88.2 Allergy status to sulfonamides
CPT/HCPCS: 85025; 80048; 36415; 81025; 80076; 81003; 83690; 74177; 96375; 96374; 99285; Q9967; J3010; J2405

== ENCOUNTER 2019-03-02 22:19 | Emergency (ER) | payer OTHER ==
--- OUTSIDE RECORDS SUMMARY | 2019-03-02 22:22 | XMS REPORT | Clinical Summary ---
:1980 Author Organization [facility] Address [address] [place] [address] Care Team Providers Name Role Phone Amanda [...] injector every 28 days for 90 days. [facility] 47090-193-54, Lot [id number],expires 01/09 predniSONE Take 1 tablet (5 60 [...] Orders Only Rheumatology Mary Mtz MD after 03/01/2018 Immunizations Name Administration Dates Next Due FLUZONE [...] Grandmother Bates Sharla Cancer Maternal Grandmother Bates [place] liver cancer GERD Maternal Grandmother Bates Sharla Liver cancer Maternal Grandmother Bates [place] Ulcerative colitis Maternal Grandmother Bates Sharla Arthritis Mother Kiarra Vision loss Mother Kiarra Psuedo-tumor cerebri Alcohol abuse Sister Ena Depression Sister Ena Irritable bowel syndrome Sister Ena Learning disabilities Sister Ena ADD Mental illness Sister Ena PTSD, anxiety Relation Name Status Comments Brother Jeronimo Brother Dave Father Norberto Maternal Grandfather Mahnaz Maternal Grandmother Bates [place] Mother Kiarra Sister nEa Social History Tobacco Use Types Packs/Day Years [...] 01/22/2019 04/17/2016, 04/13/2015 Results Not on fileafter 03/01/2018 Advance Directives For more information, please contact: [phone] Type Date Recorded 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
--- OUTSIDE RECORDS SUMMARY | 2019-03-02 22:22 | XMS REPORT | Clinical Summary ---
:1980 Author Organization [facility] Address [address] [place] [address] Care Team Providers Name Role Phone Ana [...] Not on file Results Not on fileafter 03/01/2018 Insurance Payer Benefit Plan / Subscriber ID Type Phone Address Group BLUE CROSS/BLUE BCBS PPO POS EPO xxxxxxxxxxxx PPO [phone] [address] [place] [address]
[2019-03-02 23:04] LABS: Absolute Lymphocytes (CBC) 3.3 K/uL (0.7-4.9); Basophils % 0.2 % (0-1.3); Hematocrit 40.5 % (36.0-45.0); Lymphocytes % 28.9 % (15.3-44.8); MPV 7.7 fL (7.6-11.3)
[2019-03-02 23:32] LABS: Albumin 3.3 g/dL (3.4-5.0); Bilirubin Direct 0.1 mg/dL (0-0.2); Bilirubin Total 0.4 mg/dL (0.2-1.0); Potassium 4.3 mmol/L (3.5-5.1); Protein, Total 7.1 g/dL (6.4-8.2)
[2019-03-02] MEDS ORDERED: KETOROLAC 30 MG/ML INJ ONE (23:49)
--- NOTE | 2019-03-03 00:37 | ER ---
Nurse's Notes [facility] Name: Emilia Lora Age: 38 yrs Sex: Female : 1980 Arrival Date: 03/02/2019 Time: 22:24 Bed 6 Private MD: Diagnosis: Abdominal tenderness;Ulcerative colitis, unspecified Presentation: 03/02 22:34 Presenting complaint: Patient states: she is having continuing abdominal pain which bb started yesterday she was seen here and had CT and lab work then discharged was seen by her physician today and told to come to ED again if pain worsened. Transition of care: patient was not received from another setting of care. Onset of symptoms was January 29, 2019. Risk Assessment: Do you want to hurt yourself or someone else? Patient reports no desire to harm self or others. Initial Sepsis Screen: Does the patient meet any 2 criteria? No. Patient's initial sepsis screen is negative. Does the patient have a suspected source of infection? No. Patient's initial sepsis screen is negative. Care prior to arrival: None. 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 bb Historical: - Allergies: 22:39 Cipro; bb 22:39 Keflex; bb 22:39 Levofloxacin; bb 22:39 Sulfasalazine; bb - Home Meds: 22:39 baclofen 20 mg Oral tab 1 tab 3 times per day [Active]; gabapentin 800 mg Oral tab 1 bb tab 3 times per day [Active]; 07/13 (28) 1 mg-20 mcg (21)/75 mg (7) Oral tab 1 tab once daily [Active]; propranolol 20 mg Oral tab 1 tab 3 times per day [Active]; Trintellix 10 mg Oral tab 1 tab once daily [Active]; Simponi subcutaneous [Active]; prednisone 5 mg Oral tab once daily [Active]; - PMHx: 22:39 hypermobility sydrome; Rheumatoid Arthritis; rib cage cartlige swelling; Sleep Apnea; bb ulcerative colitis; - PSHx: 22:39 RIGHT KIDNEY TAKEN OUT; bb - Immunization history:: Adult Immunizations up to date. - Social history:: Smoking status: Patient/guardian denies using tobacco. - Ebola Screening: : No symptoms or risks identified at this time. Screenin:38 Abuse screen: Denies threats or abuse. Nutritional screening: No deficits noted. jd3 Tuberculosis screening: No symptoms or risk factors identified. Fall Risk IV access (20 points). Ambulatory Aid- None/Bed Rest/Nurse Assist (0 pts). Gait- Normal/Bed Rest/Wheelchair (0 pts) Mental Status- Oriented to own ability (0 pts). Total Carmichael Fall Scale indicates No Risk (0-24 pts). Assessment: 23:00 General: Appears in no apparent distress. uncomfortable, Behavior is calm, cooperative, jd3 appropriate for age. Pain: Complains of pain in abdomen Quality of pain is described as aching, tender. Neuro: Level of Consciousness is awake, alert, obeys commands, Oriented to person, place, time, situation. Cardiovascular: Denies chest pain, Capillary refill < 3 seconds Patient's skin is warm and dry. Respiratory: Airway is patent Respiratory effort is even, unlabored, Respiratory pattern is regular, symmetrical, Denies cough, shortness of breath. GI: Abdomen is round non-distended, Abd is soft X 4 quads Abdomen is tender to palpation X 4 quads. Reports lower abdominal pain, upper abdominal pain, Patient currently denies nausea, vomiting. : No signs and/or symptoms were reported regarding the genitourinary system. EENT: No signs and/or symptoms were reported regarding the EENT system. Derm: Skin is intact, Skin is dry, Skin is normal, Skin temperature is warm. Musculoskeletal: Circulation, motion, and sensation intact. Range of motion: intact in all extremities. 23:37 Reassessment: Patient appears in no apparent distress at this time. No changes from jd3 previously documented assessment. Patient and/or family updated on plan of care and expected duration. Pain level reassessed. Patient is alert, oriented x 3, equal unlabored respirations, skin warm/dry/pink. 03/03 00:55 Reassessment: Patient appears in no apparent distress at this time. Patient and/or jd3 family updated on plan of care and expected duration. Pain level reassessed. Patient is alert, oriented x 3, equal unlabored respirations, skin warm/dry/pink. reported understanding of discharge instructions. Patient states feeling better. Vital Signs: 03/02 22:39 BP 134 / 90; Pulse 97; Resp 18 S; Temp 97.7(O); Pulse Ox 98% on R/A; Weight 145.15 kg bb (R); Height 5 ft. 9 in. (175.26 cm) (R); Pain 8/10; 23:37 BP 120 / 77; Pulse 82; Resp 17 S; Pulse Ox 95% on R/A; jd3 03/03 00:55 BP 127 / 69; Pulse 86; Resp 17 S; Pulse Ox 100% on R/A; Pain 6/10; jd3 03/02 22:39 Body Mass Index 47.26 (145.15 kg, 175.26 cm) ED Course: 03/02 22:24 Patient arrived in ED. ds1 22:26 Fadi Sanchez MD is Attending Physician. tw4 22:38 Triage completed. bb 22:39 Arm band placed on Patient placed in an exam room, on a stretcher, on pulse oximetry. bb 22:55 Initial lab(s) drawn, by ms, sent to lab. Inserted saline lock: 20 gauge in right bb antecubital area, using aseptic technique. Blood collected. 22:59 Luis Manuel Mathis, RN is Primary Nurse. jd3 23:38 Patient has correct armband on for positive identification. Bed in low position. Call j light in reach. Side rails up X 1. 03/03 00:34 Jose A Urbina MD is Referral Physician. tw4 00:56 No provider procedures requiring assistance completed. IV discontinued, intact, jd3 bleeding controlled, No redness/swelling at site. Pressure dressing applied. Administered Medications: 03/02 23:51 Drug: TORadol 30 mg Route: IVP; Site: right antecubital; jd3 03/03 00:50 Follow up: Response: No adverse reaction; Pain is decreased jd3 Outcome: 00:34 Discharge ordered by . tw4 00:56 Discharged to home ambulatory. jd3 00:56 Condition: stable 00:56 Discharge instructions given to patient, Instructed on discharge instructions, follow up and referral plans. medication usage, Demonstrated understanding of instructions, follow-up care, medications, Prescriptions given X 1. 00:56 Patient left the ED. jd3 Signatures: Luz Tomlinson ds1 Jessi Wagner RN RN bb Luis Manuel Mathis RN RN jFadi Arechiga MD MD tw4
--- NOTE | 2019-03-03 00:38 | EDPHYS ---
Physician Documentation [facility] Name: Emilia Lora Age: 38 yrs Sex: Female : 1980 Arrival Date: 03/02/2019 Time: 22:24 Bed 6 Private MD: ED Physician Fadi Sanchez HPI: 03/03 05:42 This 38 yrs old Female presents to ER via Ambulatory with complaints of tw4 Abdominal Pain, Nausea. 05:42 The patient presents to the emergency department with abdominal pain, of the umbilical tw4 area. Onset: The symptoms/episode began/occurred yesterday. Possible causes: flare up of bowel problem, ulcerative colitis. The symptoms are aggravated by movement, The symptoms are alleviated by remaining still. Associated signs and symptoms: The patient has no apparent associated signs or symptoms. Severity of symptoms: At their worst the symptoms were moderate in the emergency department the symptoms are unchanged. The patient has not experienced similar symptoms in the past. 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 bb Historical: - Allergies: 22:39 Cipro; bb 22:39 Keflex; bb 22:39 Levofloxacin; bb 22:39 Sulfasalazine; bb - Home Meds: 22:39 baclofen 20 mg Oral tab 1 tab 3 times per day [Active]; gabapentin 800 mg Oral tab 1 bb tab 3 times per day [Active]; 07/13 (28) 1 mg-20 mcg (21)/75 mg (7) Oral tab 1 tab once daily [Active]; propranolol 20 mg Oral tab 1 tab 3 times per day [Active]; Trintellix 10 mg Oral tab 1 tab once daily [Active]; Simponi subcutaneous [Active]; prednisone 5 mg Oral tab once daily [Active]; - PMHx: 22:39 hypermobility sydrome; Rheumatoid Arthritis; rib cage cartlige swelling; Sleep Apnea; bb ulcerative colitis; - PSHx: 22:39 RIGHT KIDNEY TAKEN OUT; bb - Immunization history:: Adult Immunizations up to date. - Social history:: Smoking status: Patient/guardian denies using tobacco. - Ebola Screening: : No symptoms or risks identified at this time. ROS: 03/03 05:42 Constitutional: Negative for fever, chills, and weight loss, Eyes: Negative for injury, tw4 pain, redness, and discharge, Cardiovascular: Negative for chest pain, palpitations, and edema, Respiratory: Negative for shortness of breath, cough, wheezing, and pleuritic chest pain, Back: Negative for injury and pain, MS/Extremity: Negative for injury and deformity, Skin: Negative for injury, rash, and discoloration, Neuro: Negative for headache, weakness, numbness, tingling, and seizure. Abdomen/GI: Positive for abdominal pain, Negative for nausea and vomiting, nausea, vomiting, and diarrhea, nausea, vomiting, abdominal cramps, abdominal distension, anorexia, black/tarry stool, rectal pain, rectal bleeding. Exam: 05:42 Constitutional: This is a well developed, well nourished patient who is awake, alert, tw4 and in no acute distress. Head/Face: Normocephalic, atraumatic. Chest/axilla: Normal chest wall appearance and motion. Nontender with no deformity. No lesions are appreciated. Cardiovascular: Regular rate and rhythm with a normal S1 and S2. No gallops, murmurs, or rubs. Normal PMI, no JVD. No pulse deficits. Respiratory: Lungs have equal breath sounds bilaterally, clear to auscultation and percussion. No rales, rhonchi or wheezes noted. No increased work of breathing, no retractions or nasal flaring. Back: No spinal tenderness. No costovertebral tenderness. Full range of motion. MS/ Extremity: Pulses equal, no cyanosis. Neurovascular intact. Full, normal range of motion. Neuro: Awake and alert, GCS 15, oriented to person, place, time, and situation. Cranial nerves II-XII grossly intact. Motor strength 5/5 in all extremities. Sensory grossly intact. Cerebellar exam normal. Normal gait. 05:42 Abdomen/GI: Inspection: abdomen appears normal, Bowel sounds: diminished, Palpation: mild abdominal tenderness, in the umbilical area. Vital Signs: 03/02 22:39 BP 134 / 90; Pulse 97; Resp 18 S; Temp 97.7(O); Pulse Ox 98% on R/A; Weight 145.15 kg bb (R); Height 5 ft. 9 in. (175.26 cm) (R); Pain 8/10; 23:37 BP 120 / 77; Pulse 82; Resp 17 S; Pulse Ox 95% on R/A; jd3 09/10 00:55 BP 127 / 69; Pulse 86; Resp 17 S; Pulse Ox 100% on R/A; Pain 6/10; jd3 03/02 22:39 Body Mass Index 47.26 (145.15 kg, 175.26 cm) bb MDM: 03/02 22:26 Patient medically screened. 4 03/03 05:42 Data reviewed: vital signs, EMS record. Data reviewed: lab test result(s), CBC, white tw4 blood cell count, hemoglobin, hematocrit, platelets, electrolytes, sodium, potassium, chloride, serum bicarbonate, BUN, creatinine, serum glucose. Counseling: I had a detailed discussion with the patient and/or guardian regarding: the historical points, exam findings, and any diagnostic results supporting the discharge/admit diagnosis, lab results, radiology results. Special discussion: Based on the patient's Hx, exam, and Dx evaluation, there is no indication for emergent surgery or inpatient Tx. It is understood by the patient/guardian that if the Sx's persist or worsen they need to return immediately for re-evaluation. I discussed with the patient/guardian in detail that at this point there is no indication for admission to the hospital. It is understood, however, that if the symptoms persist or worsen the patient needs to return immediately for re-evaluation. 03/02 22:26 Order name: Basic Metabolic Panel tw 03/02 22:26 Order name: CBC with Diff; Complete Time: 23:26 tw4 03/02 22:26 Order name: Creatinine for Radiology tw 03/02 22:26 Order name: Hepatic Function tw 03/02 22:26 Order name: Lipase tw 03/02 22:26 Order name: IV Saline Lock; Complete Time: 23:00 tw4 03/02 22:26 Order name: Labs collected and sent; Complete Time: 23:00 [facility] Administered Medications: 03/02 23:51 Drug: TORadol 30 mg Route: IVP; Site: right antecubital; jd3 03/03 00:50 Follow up: Response: No adverse reaction; Pain is decreased j Disposition: 03/03/19 00:34 Discharged to Home. Impression: Abdominal tenderness, Ulcerative colitis, unspecified. - Condition is Stable. - Discharge Instructions: Abdominal Pain, Adult, [id number]. - Prescriptions for Tramadol 50 mg Oral Tablet - take 1 tablet by ORAL route every 8 hours as needed; 12 tablet. - Medication Reconciliation Form, Thank You Letter, Antibiotic Education, Prescription Opioid Use form. - Follow up: Private Physician; When: Upon discharge from the Emergency Department; Reason: If symptoms return, Recheck today's complaints, Continuance of care. Follow up: Jose A Urbina MD; When: Upon discharge from the Emergency Department; Reason: If symptoms return, Recheck today's complaints, Continuance of care. - Problem is new. - Symptoms have improved. Signatures: Dispatcher [employer] EDJessi Lennon RN RN bb Luis Manuel Mathis RN RN jFadi Arechiga MD MD tw4 Corrections: (The following items were deleted from the chart) 00:56 00:35 03/03/2019 00:34 Discharged to Home. Impression: Abdominal tenderness; Ulcerative jd3 colitis, unspecified. Condition is Stable. Forms are Medication Reconciliation Form, Thank You Letter, Antibiotic Education, Prescription Opioid Use. Follow up: Private Physician; When: Upon discharge from the Emergency Department; Reason: If symptoms return, Recheck today's complaints, Continuance of care. Follow up: Jose A Urbina; When: Upon discharge from the Emergency Department; Reason: If symptoms return, Recheck today's complaints, Continuance of care. Problem is new. Symptoms have improved. tw4
[2019-03-03 01:48] VITALS: TEMP 97.7
[2019-03-03 01:50] VITALS: BP 127/69; O2SAT 100
== END 2019-03-03 00:56 | disposition home or self-care (01) ==
LOC: ER 22:19
DX: K51.90 Ulcerative colitis, unspecified, without complications (principal); Z88.1 Allergy status to other antibiotic agents; Z88.8 Allergy status to other drugs, medicaments and biological substances
CPT/HCPCS: 36415; 80048; 80076; 83690; 85025; 96374; 99284

== ENCOUNTER 2019-08-13 11:52 | Emergency (ER) | payer OTHER ==
--- OUTSIDE RECORDS SUMMARY | 2019-08-13 11:54 | XMS REPORT ---
:1980 [facility] Address [address] [place] [address] Care Team Providers Name Role Phone Unavailable Unavailable Unavailable Problems This patient has no known problems. Allergies, Adverse Reactions, Alerts This patient has no known allergies or adverse reactions. Medications This patient has no known medications. Encounters Start End Encounter Admission Attending Care Care Encounter Date/Time Date/Time Type Type Clinicians Facility Department ID 2019-08-07 2019-08-07 Outpatient [facility] [id number] 10:04:00 10:04:00 2019-04-09 2019-04-09 Outpatient [facility] [id number] 06:10:00 06:10:00 2019-03-03 2019-03-03 Outpatient [facility] [id number] 11:36:00 11:36:00
--- OUTSIDE RECORDS SUMMARY | 2019-08-13 11:55 | XMS REPORT | Summary of Care ---
:1980 Author Organization [facility] Address [address] [place] [address] Care Team Providers Name Role Phone JITENDRA Garcia, ALANA Unavailable Unavailable HARLEY Garcia, ROXANN Unavailable Unavailable ABEL Garcia, SHAW Unavailable Unavailable BECKY Garcia, ZEFERINO Unavailable Unavailable JAZLYN Hanson, COREY Unavailable Unavailable DOTTY Garcia, HECTOR Unavailable Unavailable KAY Hanson, ISAI Unavailable Unavailable NEERAJ SANDOVAL, RANJANA Unavailable Unavailable Becky SANDOVAL, Zeferino Unavailable Unavailable JAZLYN SANDOVAL [place], ELTON BOLANOS Unavailable Unavailable JITENDRA SANDOVAL, ALANA Unavailable Unavailable Rai SANDOVAL, Eloise Unavailable Unavailable DOTTY SANDOVAL, HECTOR Unavailable Unavailable KANE SANDOVAL [place], HOME Wilson Unavailable Unavailable LANDY SANDOVAL [place], BRANDT Rivera Unavailable Unavailable Corwin SANDOVAL, Jigar Unavailable Unavailable JAZLYN STEWARD, COREY Unavailable Unavailable JAZLYN SANDOVAL, PHAN Unavailable Unavailable HARLEY SANDOVAL [place], ROXANN Unavailable Unavailable Abel SANDOVAL, Shaw Unavailable Unavailable Unavailable Unavailable Unavailable Functional Status Name Dates Details Functional status health issues are not documented Status: Name Dates Details Cognitive status health issues are not documented Status: Problems Name Dates Details Injury, foot, left, initial encounter (959.7, S99.922A) Status: Active Endometriosis (617.9, N80.9) Status: Active Vaginal candidiasis (112.1, B37.3) Status: Active Abnormal urinalysis (791.9, R82.90) Status: Active Encounter for monitoring golimumab therapy (V58.83, Z51.81) Status: Active Encounter for prison current azathioprine therapy (V58.69, Z79.899) Status: Active Chronic low back pain (724.2, M54.5) Status: Active Chronic right sacroiliac joint pain (724.6, M53.3) Status: Active Chronic left shoulder pain (719.41, M25.512) Status: Active On corticosteroid therapy (V58.65, Z79.52) Status: Active Anxiety (300.00, F41.9) Status: Active Asthma (493.90, J45.909) Status: Active Chronic neck pain (723.1, M54.2) Status: Active Depression (311, F32.9) Status: Active Dyspnea (786.09, R06.00) Status: Active History of rheumatoid arthritis (V13.4, Z87.39) Status: Active Obesity, morbid (more than 100 lbs over ideal weight or BMI > 40) (278.01, E66.01) Status: Active PCOS (polycystic ovarian syndrome) (256.4, E28.2) Status: Active Rheumatoid arthritis (714.0, M06.9) Status: Active RILEY (obstructive sleep apnea) (327.23, G47.33) Status: Active Palpitations (785.1, R00.2) Status: Active Chest pain at rest (786.50, R07.9) Status: Active Chest pain, atypical (786.59, R07.89) Status: Active Recurrent UTI (urinary tract infection) (599.0, N39.0) Status: Active Anxiety and depression (300.00, F41.9) Status: Active Hypertriglyceridemia (272.1, E78.1) Status: Active Spleen enlargement (789.2, R16.1) Status: Active Myofascial pain syndrome (729.1, M79.18) Status: Active Pain of left clavicle (733.90, M89.8X1) Status: Active Pain of right clavicle (733.90, M89.8X1) Status: Active Osteoarthritis (715.90, M19.90) Status: Active Arthralgia of both knees (719.46, M25.561) Status: Active PTSD (post-traumatic stress disorder) (309.81, F43.10) Status: Active Sprain of calcaneofibular ligament of left ankle, sequela (905.7, S93.412S) Status: Active Urethritis, nonspecific (099.40, N34.1) Status: Active Drug testing, pre-employment (V70.5, Z02.1) Status: Active Tendinitis of left pectoralis major (726.10, M75.82) Status: Active Tendinitis of right pectoralis major (726.10, M75.81) Status: Active Hypermobility arthralgia (719.40, M25.50) Status: Active Costochondritis (733.6, M94.0) Status: Active Arthralgia of right knee (719.46, M25.561) Status: Active Fibromyalgia (729.1, M79.7) Status: Active Chronic right shoulder pain (719.41, M25.511) Status: Active Sprain of calcaneofibular ligament of left ankle, subsequent encounter (V58.89 , S93.412D) Status: Active Abdominal pain (789.00, R10.9) Status: Active Diarrhea (787.91, R19.7) Status: Active Chronic GERD (530.81, K21.9) Status: Active Colitis (558.9, K52.9) Status: Active Ulcerative colitis (556.9, K51.90) Status: Active Humerus lesion, right (733.90, M89.9) Status: Active Tear of right infraspinatus tendon, initial encounter (840.3, S46.811A) Status: Active Right supraspinatus tendinitis (726.10, M75.91) Status: Active Tendinitis of right infraspinatus tendon (726.10, M75.81) Status: Active Facial rash (782.1, R21) Status: Active Other synovitis and tenosynovitis, left ankle and foot (727.06, M65.872) Status: Active Ankle pain, left (719.47, M25.572) Status: Active Headache (784.0, R51) Status: Active Chronic left sacroiliac pain (724.6, M53.3) Status: Active Morbid obesity (278.01, E66.01) Status: Active Back muscle spasm (724.8, M62.830) Status: Active Lumbar spondylosis (721.3, M47.816) Status: Active Lumbar facet arthropathy (721.3, M47.816) Status: Active Medications Name Dates Details Proventil HFA 108 (90 Base) MCG/ACT Inhalation Aerosol Solution INHALE ONE TO TWO PUFFS BY MOUTH EVERY 4 TO 6 HOURS NEEDED Quantity: 1 Refills: 5 ABEL GarciaSHAW Start : 02-Feb-2019 Active 6.7 GM Inhaler Fluticasone-Salmeterol 500-50 MCG/DOSE Inhalation Aerosol Powder Breath Activated INHALE 1 PUFF TWICE DAILY. Quantity: 1 Refills: 3 ABEL GarciaSHAW Start : 08-Apr-2019 Active 60 Each Pack Diclofenac Sodium 1 % Transdermal Gel APPLY 2 GM OF GEL TO AFFECTED AREA 4 TIMES DAILY. DO NOT APPLY MORE THAN 8 GM DAILY TO ANY ONE AFFECTED AREA. Quantity: 1 Refills: 1 HARLEY Garcia ROXANN Start : 29-Jan-2019 Active 100 GM Tube Omeprazole 40 MG Oral Capsule Delayed Release TAKE 1 CAPSULE DAILY Quantity: 30 Refills: 6 ZEFERINO PENA M.D. Start : 23-Jan-2019 Active 07/13 1-20 MG-MCG Oral Tablet TAKE 1 TABLET DAILY. Quantity: 3 Refills: 3 COREY HOBSON N.P. Start : 14-Jan-2019 Active 28 Tablet Pack Neurontin 800 MG Oral Tablet TAKE 1 TABLET 3 TIMES DAILY. Quantity: 90 Refills: 3 JITENDRA Garcia ALANA Start : 29-Dec-2018 Active Trezix 320.5-30-16 MG Oral Capsule TAKE 2 CAPSULES BY MOUTH EVERY 4 TO 6 HOURS NEEDED FOR PAIN Quantity: 60 Refills: 0 ISAI VILLANUEVA N.P. Start : 13-Jul-2019 Active Pregabalin 75 MG Oral Capsule TAKE 1 CAPSULE 3 TIMES DAILY. Quantity: 30 Refills: 0 ISAI VILLANUEVA N.P. Start : 19-May-2019 Active Ibuprofen 200 MG Oral Tablet Refills: 0 Start : 04-May-2019 Active Lidocaine 5 % External Patch APPLY 1 PATCH TO THE AFFECTED AREA AND LEAVE IN PLACE FOR 12 HOURS, THEN REMOVE AND LEAVE OFF FOR 12HOURS. Quantity: 1 Refills: 0 JOSEPHINE SOUZA M.D.SHAYNEDilan Start : 02-Feb-2019 Active 30 Patch Box Propranolol HCl - 20 MG Oral Tablet TAKE 1 TABLET TWICE DAILY as needed Quantity: 60 Refills: 1 HECTOR STORM M.D. Start : 29-Dec-2018 Active traZODone HCl - 100 MG Oral Tablet TAKE 1 TABLET AT BEDTIME. Quantity: 90 Refills: 0 DOTTY Garcia, HECTOR Start : 29-Dec-2018 Active Trintellix 20 MG Oral Tablet Take 1 table daily Quantity: 90 Refills: 0 DOTTY Garcia, ELTONGARFIELDDerick Start : 13-Jan-2019 Active CPAP Continuous Positive Airway Pressure Please provide patient with all necessary CPAP supplies including mask (please fit), tubing, filters, etc. Good for ONE YEAR Quantity: 1 Refills: 0 ABEL Garcia SHAW Start : 09-Mar-2019 Active Mesalamine 1.2 GM Oral Tablet Delayed Release TAKE 4 TABLET Every morning Quantity: 120 Refills: 11 BECKY Garcia, ZEFERINO Start : 02-Apr-2019 Active Baclofen 20 MG Oral Tablet TAKE 1 TABLET 3 TIMES DAILY NEEDED. Quantity: 90 Refills: 3 JITENDRA Garcia ALANA Start : 29-Dec-2018 Active Allergies and Adverse Reactions Name Dates Details Ciprofloxacin HCl TABS (Allergy) Status: Active Keflex TABS (Allergy) Status: Active Levaquin TABS (Allergy) Status: Active Past Medical History Name Dates Details PCOS (polycystic ovarian syndrome) (256.4, E28.2) Status: Active Ulcerative colitis (556.9, K51.90) Status: Active History of asthma (V12.69, Z87.09) Status: Resolved History of attention deficit hyperactivity disorder (ADHD) (V11.8, Z86.59) Status: Resolved History of Parks's esophagus (V12.79, Z87.19) Status: Resolved History of Cervical radicular pain (723.4, M54.12) Status: Resolved History of depression (V11.8, Z86.59) Status: Resolved History of Gastroparesis (536.3, K31.84) Status: Resolved History of hemorrhoids (V13.89, Z87.19) Status: Resolved History of Medial meniscus tear (836.0, S83.249A) Status: Resolved History of pancreatitis (V12.79, Z87.19) Status: Resolved History of peptic ulcer (V12.71, Z87.11) Status: Resolved Procedures Procedure Dates Details History of Gallbladder surgery Completed History of Kidney surgery Completed History of Ureterectomy Completed History of Endometrial ablation Completed History of Adenoidectomy Completed History of Cholecystectomy Completed History of Sinus Surgery Completed Immunization Name Dates Details Tdap on: Jun-2015 Family History Name Dates Details Family history of depression (V17.0, Z81.8) Status: Active Family history of Anxiety (300.00, F41.9) Status: Active Name Dates Details Family history of osteoarthritis (V17.89, Z82.69) Status: Active Family history of osteoporosis (V17.81, Z82.62) Status: Active Name Dates Details Family history of hypothyroidism (V18.19, Z83.49) Status: Active Family history of pulmonary embolism (V17.49, Z82.49) Status: Active Family history of gout (V18.19, Z82.69) Status: Active Family history of osteoarthritis (V17.89, Z82.69) Status: Active Family history of osteoporosis (V17.81, Z82.62) Status: Active Name Dates Details Family history of hypertension (V17.49, Z82.49) Status: Active Family history of alcoholism (V17.0, Z81.1) Status: Active Social History Name Dates Details - Status: Name Dates Details Never smoker Vital Signs Date Test Result Details [id number] BP Systolic 118 mm[Hg] Status: Comments: Location: LUE; Position: Sitting BP Diastolic 73 mm[Hg] Status: Comments: Location: LUE; Position: Sitting Height 68 in Status: Weight 331 lb Status: Body Mass Index Calculated 50.33 kg/m2 Status: Body Surface Area Calculated 2.53 m2 Status: Heart Rate 84 /min Status: Results Date Description Value Details Results not documented Plan of Care Name Dates Details Planned Observations Planned Goals not documented Planned Encounters Appointment; ELOISE DAMON On: 07-Aug-2019 10:00 Appointment; BRANDT BILL M.D. On: 13-Aug-2019 9:45 Appointment; HECTOR STORM M.D. On: 26-Aug-2019 11:30 Appointment; SINCERE SALVADOR LCSW On: 18-Sep-2019 13:00 Appointment; ROXANN SOUZA M.D. On: 25-Sep-2019 11:30 Appointment; ALANA HAM M.D. On: 12-Oct-2019 11:30 Instructions Name Dates Details Instructions not documented Encounters Appointment; COREY HOBSON NP On: 29-Dec-2018 13:00 Encounter Diagnosis: Problem not documented Appointment; ROXANN SOUZA M.D. On: 13-Jan-2019 8:00 Encounter Diagnosis: Problem not documented Appointment; SHAW BUENROSTRO M.D. On: 14-Jan-2019 8:30 Encounter Diagnosis: Problem not documented Appointment; DICKSON CHAPA On: 14-Jan-2019 9:00 Encounter Diagnosis: Problem not documented Appointment; LARRY CHAPA On: 14-Jan-2019 10:00 Encounter Diagnosis: Problem not documented Appointment; COREY HOBSON NP On: 14-Jan-2019 13:00 Encounter Diagnosis: Problem not documented Appointment; ZEFERINO PENA M.D. On: 23-Jan-2019 14:00 Encounter Diagnosis: Problem not documented Appointment; ROXANN SOUZA M.D. On: 29-Jan-2019 15:00 Encounter Diagnosis: Problem not documented Appointment; ROXANN SOUZA M.D. On: 29-Jan-2019 15:30 Encounter Diagnosis: Problem not documented Appointment; HECTOR STORM M.D. On: 05-Feb-2019 14:00 Encounter Diagnosis: Problem not documented Appointment; BRANDT BILL M.D. On: 10-Feb-2019 13:45 Encounter Diagnosis: Problem not documented Appointment; JIGAR ALCALA M.D. On: 03-Mar-2019 11:30 Encounter Diagnosis: Problem not documented Appointment; KOBE MEDELLIN NP On: 05-Mar-2019 10:30 Encounter Diagnosis: Problem not documented Appointment; BRANDT BILL M.D. On: 17-Mar-2019 11:00 Encounter Diagnosis: Problem not documented Appointment; ROXANN SOUZA M.D. On: 26-Mar-2019 11:30 Encounter Diagnosis: Problem not documented Appointment; HECTOR STORM M.D. On: 13-Apr-2019 12:00 Encounter Diagnosis: Problem not documented Appointment; BRANDT BILL M.D. On: 14-Apr-2019 14:15 Encounter Diagnosis: Problem not documented Appointment; ZEFERINO PENA M.D. On: 16-Apr-2019 13:00 Encounter Diagnosis: Problem not documented Appointment; OTTONIEL CHAU M.D. On: 20-Apr-2019 13:00 Encounter Diagnosis: Problem not documented Appointment; ALLYSON ARZOLA M.D. On: 04-May-2019 11:00 Encounter Diagnosis: Problem not documented Appointment; BRANDT BILL M.D. On: 08-May-2019 11:00 Encounter Diagnosis: Problem not documented Appointment; ISAI VILLANUEVA NP On: 19-May-2019 8:00 Encounter Diagnosis: Problem not documented Appointment; BRANDT BILL M.D. On: 23-Jun-2019 11:15 Encounter Diagnosis: Problem not documented Appointment; ALANA HAM M.D. On: 13-Jul-2019 13:00 Encounter Diagnosis: Problem not documented
--- OUTSIDE RECORDS SUMMARY | 2019-08-13 11:55 | XMS REPORT | Summary of Care ---
:1980 Author Name KAY Hanson, ISAI Address Unavailable Unavailable , Care Team Providers Name Role Phone JITENDRA Garcia, ALANA Unavailable Unavailable HARLEY Garcia, ROXANN Unavailable Unavailable ABEL Garcia, SHAW Unavailable Unavailable BECKY Garcia, ZEFERINO Unavailable Unavailable JAZLYN Hanson, COREY Unavailable Unavailable DOTTY Garcia, HECTOR Unavailable Unavailable KAY Hanson, ISAI Unavailable Unavailable Heath Can, Kerry Unavailable Unavailable NEERAJ SANDOVAL, RANJANA Unavailable Unavailable Becky SANDOVAL, Zeferino Unavailable Unavailable JAZLYN SANDOVAL [place], ELTON BOLANOS Unavailable Unavailable JITENDRA SANDOVAL, ALANA Unavailable Unavailable Rai SANDOVAL, Eloise Unavailable Unavailable KANE SANDOVAL [place], HOME Wilson Unavailable Unavailable LANDY SANDOVAL [place], BRANDT Rivera Unavailable Unavailable Corwin SANDOVAL, Jigar Unavailable Unavailable JAZLYN STEWARD, COREY Unavailable Unavailable JAZLYN SANDOVAL, PHAN Unavailable Unavailable HARLEY SANDOVAL [place], ROXANN Unavailable Unavailable Abel SANDOVAL, Shaw Unavailable [...] therapy (V58.83, Z51.81) Status: Active 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 Start : 29-Dec-2018 Active traZODone HCl - 100 MG Oral Tablet TAKE 1 TABLET AT BEDTIME. Quantity: 90 Refills: 0 HECTOR STORM M.D. Start : 29-Dec-2018 Active Neurontin 800 MG Oral Tablet TAKE 1 TABLET 3 TIMES DAILY. Quantity: 90 Refills: 3 JITENDRA Garcia, ALANA Start : 29-Dec-2018 Active Baclofen 20 MG Oral Tablet TAKE 1 TABLET 3 TIMES DAILY NEEDED. Quantity: 90 Refills: 3 ALANA AHM M.D. Start : 29-Dec-2018 Active Trintellix 20 MG Oral Tablet Take 1 table daily Quantity: 90 Refills: 0 HECTOR STORM M.D. Start : 13-Jan-2019 Active 07/13 1-20 MG-MCG Oral Tablet TAKE 1 TABLET DAILY. Quantity: 3 Refills: 3 COREY HOBSON N.P. Start : 14-Jan-2019 Active 28 Tablet Pack Omeprazole 40 MG Oral Capsule Delayed Release TAKE 1 CAPSULE DAILY Quantity: 30 Refills: 6 ZEFERINO PENA M.D. Start : 23-Jan-2019 Active Diclofenac Sodium 1 % Transdermal Gel APPLY 2 GM OF GEL TO AFFECTED AREA 4 TIMES DAILY. DO NOT APPLY MORE THAN 8 GM DAILY TO ANY ONE AFFECTED AREA. Quantity: 1 Refills: 1 ROXANN SOUZA M.D. Start : 29-Jan-2019 Active 100 GM Tube Lidocaine 5 % External Patch APPLY 1 PATCH TO THE AFFECTED AREA AND LEAVE IN PLACE FOR 12 HOURS, THEN REMOVE AND LEAVE OFF FOR 12HOURS. Quantity: 1 Refills: 0 ROXANN SOUZA M.D. Start : 02-Feb-2019 Active 30 Patch Box Proventil HFA 108 (90 Base) MCG/ACT Inhalation Aerosol Solution INHALE ONE TO TWO PUFFS BY MOUTH EVERY 4 TO 6 HOURS NEEDED Quantity: 1 Refills: 5 SHAW BUENROSRTO M.D. Start : 02-Feb-2019 Active 6.7 GM Inhaler CPAP Continuous Positive Airway Pressure Please provide patient with all necessary CPAP supplies including mask (please fit), tubing, filters, etc. Good for ONE YEAR Quantity: 1 Refills: 0 SHAW BUENROSTRO M.D. Start : 09-Mar-2019 Active Mesalamine 1.2 GM Oral Tablet Delayed Release TAKE 4 TABLET Every morning Quantity: 120 Refills: 11 BECKY GarciaZEFERINO Start : 02-Apr-2019 Active Fluticasone-Salmeterol 500-50 MCG/DOSE Inhalation Aerosol Powder Breath Activated INHALE 1 PUFF TWICE DAILY. Quantity: 1 Refills: 3 ABEL RadhaSHAW Start : 08-Apr-2019 Active 60 Each Pack Ibuprofen 200 MG Oral Tablet Refills: 0 Start : 04-May-2019 Active Pregabalin 75 MG Oral Capsule TAKE 1 CAPSULE 3 TIMES DAILY. Quantity: 30 Refills: 0 KAY N.ISAI Avilez Start : 19-May-2019 Active Trezix 320.5-30-16 MG Oral Capsule TAKE 2 CAPSULES BY MOUTH EVERY 4 TO 6 HOURS NEEDED FOR PAIN Quantity: 60 Refills: 0 KAY N.PISAI Gale Start : 13-Jul-2019 Active Allergies and Adverse Reactions Name Dates [...] smoker Vital Signs Date Test Result Details [id number] BP Systolic 118 mm[Hg] Status: Comments: Location: [...] Appointment; ELOISE DAMON On: 07-Aug-2019 10:00 Appointment; ROXANN SOUZA M.D. On: 25-Sep-2019 11:30 Appointment; ALANA HAM M.D. On: 12-Oct-2019 11:30 Interventions Provided Medication ChangesTrezix 320.5-30-16 MG Oral Capsule - Start Instructions Name Dates Details Instructions not documented [...]
--- OUTSIDE RECORDS SUMMARY | 2019-08-13 11:56 | XMS REPORT | Summary of Care ---
:1980 Author Name ABEL Garcia, SHAW Address Unavailable Unavailable , Care Team Providers Name Role Phone JITENDRA Garcia, ALANA Unavailable Unavailable HARELY Garcia, ROXANN Unavailable Unavailable ABEL Garcia, SHAW Unavailable Unavailable BECKY Garcia, ZEFERINO Unavailable Unavailable JAZLYN Hanson, COREY Unavailable Unavailable DOTTY Garcia, HECTOR Unavailable Unavailable KAY Hanson, ISAI Unavailable Unavailable NEERAJ SANDOVAL, RANJANA Unavailable Unavailable Becky SANDOVAL, Zeferino Unavailable Unavailable JAZLYN SANDOVAL [place], ELTON BOLANOS Unavailable Unavailable JITENDRA SANDOVAL, ALANA Unavailable Unavailable Rai SANDOVAL, Eloise Unavailable Unavailable DOTTY SANDOVAL, HECTOR Unavailable Unavailable KANE SANDOVAL [place], HOME Wilson Unavailable Unavailable LANDY SANDOVAL [place], BRANDT Rivera Unavailable Unavailable Corwin SANDOVAL, Jigar Unavailable Unavailable JAZLYN STEWARD, COREY Unavailable Unavailable JAZLYN SANDOVAL, PHAN Unavailable Unavailable HARLEY SANDOVAL [place], ROXANN Unavailable Unavailable Abel SANDOVAL, Shaw Unavailable [...] therapy (V58.83, Z51.81) Status: Active 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 Quantity: 90 Refills: 3 ASHLEY HAM M.D.A Start : 29-Dec-2018 Active Trintellix 20 MG [...] HOURS NEEDED Quantity: 1 Refills: 5 SHAW BUENROSTRO M.D. Start : 02-Feb-2019 Active 6.7 GM [...] TIMES DAILY. Quantity: 30 Refills: 0 KAY N.PISAI Gale Start : 19-May-2019 Active Trezix 320.5-30-16 MG [...] smoker Vital Signs Date Test Result Details [id number] BP Systolic 118 mm[Hg] Status: Comments: Location: [...] M.D. On: 12-Oct-2019 11:30 Interventions Provided Medication ChangesFluticasone-Salmeterol 500-50 MCG/DOSE Inhalation Aerosol Powder Breath Activated - [facility]/Pro[facility]ures/ImagingTobacco Use Screening; Done: 14 Jan 2019PlanPlan - check CK given muscle weakness- likely needs bone scan given mcc prednisone usage - will defer to rheum- split night sleep study with ETCO2 monitoring given morbid obesity, untreated RILEY, EDS, extreme fatigue; diagnosed previously but now with health insurance and does not have mask/supplies- full PFT today- TTE given palpitations, chest pain; evaluate PASP as with dizziness, palpitations, pre-syncope- Discussed the pathophysiology of obstructive sleep apnea (RILEY) and risk factors for the disease.- Discussed possible consequences of untreated RILEY, including excessive daytime sleepiness and fatigue, cognitive dysfunction, cardiovascular complications such as elevated blood pressure, heart attacks, cardiac arrhythmias, and strokes.- Discussed treatment options, which include PAP, weight loss.- encouraged weight loss- Risks associated with driving while sleepy were discussed with the patient who understands and agrees to take appropriate measures to eliminate these risks.f/u after studies above Medication Changes: There are no changes to your medication. Please continue to take all your medicines as prescribed. Orders will be placed for the following test: Pulmonary Function Tests Echocardiogram Sleep Study Other planned treatment includes : CPAP Additional Instructions: Follow up after studies ordered - CK lab, echo of heart, sleep study, lung function testingDiscussion/ SummaryImpression: obstructive sleep apnea. Currently, the condition is worsening. Treatment plan includes good sleep hygiene, weight loss regimen, exercise regimen and CPAP. Patient discussion: discussed with the patient. Instructions Name Dates Details Instructions not documented Encounters Appointment; COREY HOBSON NP On: 29-Dec-2018 13:00 Encounter Diagnosis: Problem not documented Appointment; ROXANN SOUZA M.D. On: 13-Jan-2019 8:00 Encounter Diagnosis: Problem not documented Appointment; SHAW BUENROSTRO M.D. On: 14-Jan-2019 8:30 Encounter Diagnosis: Problem not documented
--- OUTSIDE RECORDS SUMMARY | 2019-08-13 11:56 | XMS REPORT | Summary of Care ---
:1980 Author Name Leslie Jarvis R.N. Address Unavailable Unavailable , Care Team Providers Name Role Phone JITENDRA Garcia, ALANA Unavailable Unavailable HARLEY Garcia, ROXANN Unavailable Unavailable ABEL Garcia, SHAW Unavailable Unavailable BECKY Garcia, ZEFERINO Unavailable Unavailable JAZLYN Loyola.Fatmata, COREY Unavailable Unavailable Matheus Becker, Leslie Unavailable Unavailable DOTTY Garcia, HECTOR Unavailable Unavailable KAY Hanson, ISAI Unavailable Unavailable NEERAJ SANDOVAL, RANJANA Unavailable Unavailable Becky SANDOVAL, Zeferino Unavailable Unavailable JAZLYN SANDOVAL [place], ELTON BOLANOS Unavailable Unavailable JITENDRA SANDOVAL, ALANA Unavailable Unavailable Rai SANDOVAL, Eloise Unavailable Unavailable DOTTY SANDOVAL, HECTOR Unavailable Unavailable KANE SANDOVAL [place], HOME Wilson Unavailable Unavailable LANDY SANDOVAL [place], BRANDT Rivera Unavailable Unavailable Jigar Alcala MD Unavailable Unavailable JAZLYN STEWARD, COREY Unavailable Unavailable JAZLYN SANDOVAL, PHAN Unavailable Unavailable HARLEY SANDOVAL [place], ROXANN Unavailable Unavailable Abel SANDOVAL, Shaw Unavailable [...] therapy (V58.83, Z51.81) Status: Active Encounter for shelter current azathioprine therapy (V58.69, Z79.899) Status: Active [...] DOTTY Garcia, HECTOR Start : 29-Dec-2018 Active Neurontin 800 MG Oral Tablet TAKE 1 TABLET 3 TIMES DAILY. Quantity: 90 Refills: 3 JITENDRA Garcia, ALANA Start : 29-Dec-2018 Active Baclofen 20 MG Oral Tablet TAKE 1 TABLET 3 TIMES DAILY NEEDED. Quantity: 90 Refills: 3 JITENDRA Garcia, ALANA Start : 29-Dec-2018 Active Trintellix 20 MG Oral Tablet Take 1 table daily Quantity: 90 Refills: 0 HECTOR STORM M.D. Start : 13-Jan-2019 Active 07/13 1-20 MG-MCG Oral Tablet TAKE 1 TABLET DAILY. Quantity: 3 Refills: 3 OCREY HOBSON N.P. Start : 14-Jan-2019 Active 28 [...] Every morning Quantity: 120 Refills: 11 BECKY GarciaZEFEIRNO Start : 02-Apr-2019 Active Fluticasone-Salmeterol 500-50 MCG/DOSE Inhalation Aerosol Powder Breath Activated INHALE 1 PUFF TWICE DAILY. Quantity: 1 Refills: 3 ABEL GarciaSHAW Start : 08-Apr-2019 Active 60 Each Pack Ibuprofen 200 MG Oral Tablet Refills: 0 Start : 04-May-2019 Active Pregabalin 75 MG Oral Capsule TAKE 1 CAPSULE 3 TIMES DAILY. Quantity: 30 Refills: 0 KAY N.P., ISAI Start : 19-May-2019 Active Trezix 320.5-30-16 MG Oral Capsule TAKE 2 CAPSULES BY MOUTH EVERY 4 TO 6 HOURS NEEDED FOR PAIN Quantity: 60 Refills: 0 KAY N.P., ISAI Start : 13-Jul-2019 Active Allergies and Adverse [...] smoker Vital Signs Date Test Result Details [id number] BP Systolic 118 mm[Hg] Status: Comments: Location: [...] Encounter Diagnosis: Problem not documented Appointment; ZEFERINO PNEA M.D. On: 16-Apr-2019 13:00 Encounter Diagnosis: Problem [...]
--- OUTSIDE RECORDS SUMMARY | 2019-08-13 11:57 | XMS REPORT | Summary of Care ---
:1980 Author Organization [facility] Address [address] [place] [address] Care Team Providers Name Role Phone JITENDRA Garcia, ALANA Unavailable Unavailable HARLEY Garcia, ROXANN Unavailable Unavailable ABEL Garcia, SHAW Unavailable Unavailable BECKY Garcia, ZEFERINO Unavailable Unavailable JAZLYN Hanson, COREY Unavailable Unavailable DOTTY Garcia, HECTOR Unavailable Unavailable KAY Hanson, ISAI Unavailable Unavailable NEERAJ SANDOVAL, RANJANA Unavailable Unavailable Becky SANDOVAL, Zeferino Unavailable Unavailable JAZLYN SANDOVAL [place], ELTON BOLANOS Unavailable Unavailable JITENDRA SANDOVAL, ALANA Unavailable Unavailable Rai SANDOVAL, Eloise Unavailable Unavailable DOTTY SANDOVAL, HECTOR Unavailable Unavailable KANE SANDOVAL [place], HOME Wilson Unavailable Unavailable LANDY SANDOVAL [place], BRANDT Rivera Unavailable Unavailable Corwin SANDOVAL, Jigar Unavailable Unavailable JAZLYN STEWARD, COREY Unavailable Unavailable JAZLYN SANDOVAL, PHAN Unavailable Unavailable HARLEY SANDOVAL [place], ROXANN Unavailable Unavailable Abel SANDOVAL, Shaw Unavailable [...] therapy (V58.83, Z51.81) Status: Active 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 Quantity: 90 Refills: 3 JITENDRA Garcia ALANA Start : 29-Dec-2018 Active Trintellix 20 MG Oral Tablet Take 1 table daily Quantity: 90 Refills: 0 HECTOR STORM M.D. Start : 13-Jan-2019 Active 07/13 1-20 MG-MCG Oral Tablet TAKE 1 TABLET DAILY. Quantity: 3 Refills: 3 JAZLYN Loyola.COREY Avilez Start : 14-Jan-2019 Active 28 Tablet Pack [...] Start : 29-Jan-2019 Active 100 GM Tube Proventil HFA 108 (90 Base) MCG/ACT Inhalation Aerosol Solution INHALE ONE TO TWO PUFFS BY MOUTH EVERY 4 TO 6 HOURS NEEDED Quantity: 1 Refills: 5 SHAW BUENROSTRO M.D. Start : 02-Feb-2019 Active 6.7 GM Inhaler Ibuprofen 200 MG Oral Tablet Refills: 0 Start : 04-May-2019 Active Pregabalin 75 MG Oral Capsule TAKE 1 CAPSULE 3 TIMES DAILY. Quantity: 30 Refills: 0 ISAI VILLANUEVA N.P. Start : 19-May-2019 Active Fluticasone-Salmeterol 500-50 MCG/DOSE Inhalation Aerosol Powder Breath Activated INHALE 1 PUFF TWICE DAILY. Quantity: 1 Refills: 3 SHAW BUENROSTRO M.D. Start : 08-Apr-2019 Active 60 Each Pack Mesalamine 1.2 GM Oral Tablet Delayed Release TAKE 4 TABLET Every morning Quantity: 120 Refills: 11 ZEFERINO PENA M.D. Start : 02-Apr-2019 Active CPAP Continuous Positive Airway Pressure Please provide patient with all necessary CPAP supplies including mask (please fit), tubing, filters, etc. Good for ONE YEAR Quantity: 1 Refills: 0 ABEL GarciaSHAW Start : 09-Mar-2019 Active Lidocaine 5 % External Patch APPLY 1 PATCH TO THE AFFECTED AREA AND LEAVE IN PLACE FOR 12 HOURS, THEN REMOVE AND LEAVE OFF FOR 12HOURS. Quantity: 1 Refills: 0 HARLEY Garcia ROXANN Start : 02-Feb-2019 Active 30 Patch Box Trezix 320.5-30-16 MG Oral Capsule TAKE 2 CAPSULES BY MOUTH EVERY 4 TO 6 HOURS NEEDED FOR PAIN Quantity: 60 Refills: 0 ISAI VILLANUEVA N.P. Start : 13-Jul-2019 Active Allergies and Adverse [...] smoker Vital Signs Date Test Result Details [id number] BP Systolic 118 mm[Hg] Status: Comments: Location: [...] 13-Jul-2019 13:00 Encounter Diagnosis: Problem not documented Appointment; BRANDT BILL M.D. On: 04-Aug-2019 13:30 Encounter Diagnosis: Problem not documented
--- OUTSIDE RECORDS SUMMARY | 2019-08-13 11:57 | XMS REPORT | Summary of Care ---
:1980 Author Organization [facility] Address [address] [place] [address] Care Team Providers Name Role Phone JITENDRA Garcia, ALANA Unavailable Unavailable HARLEY Garcia, ROXANN Unavailable Unavailable ABEL Garcia, SHAW Unavailable Unavailable BECKY Garcia, ZEFERINO Unavailable Unavailable JAZLYN Hanson, COREY Unavailable Unavailable DOTTY Garcia, HECTOR Unavailable Unavailable KAY Hanson, ISAI Unavailable Unavailable NEERAJ SANDOVAL, RANJANA Unavailable Unavailable Becky SANDOVAL, Zeferino Unavailable Unavailable JAZLYN SANDOVAL [place], ELTON BOLANOS Unavailable Unavailable JITENDRA SANDOVAL, ALANA Unavailable Unavailable Rai SANDOVAL, Eloise Unavailable Unavailable DOTTY SANDOVAL, HECTOR Unavailable Unavailable KANE SANDOVAL, HOME Wilson Unavailable Unavailable LANDY SANDOVAL, BRANDT Rivera Unavailable Unavailable Corwin SANDOVAL, Jigar Unavailable Unavailable JAZLYN STEWARD, COREY Unavailable Unavailable JAZLYN SANDOVAL, PHAN Unavailable Unavailable HARLEY SANDOVAL [place], ROXANN Unavailable Unavailable Abel SANDOVAL, Shaw Unavailable Unavailable Unavailable Unavailable Unavailable Functional Status Name Dates Details Functional status health issues are not documented Status: Name Dates Details Cognitive status health issues are not documented Status: Problems Name Dates Details Injury, foot, left, initial encounter (959.7, S99.922A) Status: Active Endometriosis (617.9, N80.9) Status: Active Vaginal candidiasis (112.1, B37.3) Status: Active Recurrent UTI (urinary tract infection) (599.0, N39.0) Status: Active Anxiety and depression (300.00, F41.9) Status: Active Hypertriglyceridemia (272.1, E78.1) Status: Active Spleen enlargement (789.2, R16.1) Status: Active Pain of left clavicle (733.90, M89.8X1) Status: Active Pain of right clavicle (733.90, M89.8X1) Status: Active Osteoarthritis (715.90, M19.90) Status: Active PTSD (post-traumatic stress disorder) (309.81, F43.10) Status: Active Urethritis, nonspecific (099.40, N34.1) Status: Active Drug testing, pre-employment (V70.5, Z02.1) Status: Active Chronic right shoulder pain (719.41, M25.511) Status: Active Abdominal pain (789.00, R10.9) Status: [...] Active Facial rash (782.1, R21) Status: Active Ankle pain, left (719.47, M25.572) Status: Active Headache (784.0, R51) Status: Active Ulcerative colitis (556.9, K51.90) Status: Active Fibromyalgia (729.1, M79.7) Status: Active Arthralgia of right knee (719.46, M25.561) Status: Active Costochondritis (733.6, M94.0) Status: Active Hypermobility arthralgia (719.40, M25.50) Status: Active Tendinitis of right pectoralis major (726.10, M75.81) Status: Active Tendinitis of left pectoralis major (726.10, M75.82) Status: Active Sprain of calcaneofibular ligament of left ankle, sequela (905.7, S93.412S) Status: Active Arthralgia of both knees (719.46, M25.561) Status: Active Myofascial pain syndrome (729.1, M79.18) Status: Active Chest pain, atypical (786.59, R07.89) Status: Active Chest pain at rest (786.50, R07.9) Status: Active Palpitations (785.1, R00.2) Status: Active RILEY (obstructive sleep apnea) (327.23, G47.33) Status: Active Rheumatoid arthritis (714.0, M06.9) Status: Active PCOS (polycystic ovarian syndrome) (256.4, E28.2) Status: Active Obesity, morbid (more than 100 lbs over ideal weight or BMI > 40) (278.01, E66.01) Status: Active History of rheumatoid arthritis (V13.4, Z87.39) Status: Active Dyspnea (786.09, R06.00) Status: Active Depression (311, F32.9) Status: Active Chronic neck pain (723.1, M54.2) Status: Active Asthma (493.90, J45.909) Status: Active Anxiety (300.00, F41.9) Status: Active On corticosteroid therapy (V58.65, Z79.52) Status: Active Chronic left shoulder pain (719.41, M25.512) Status: Active Chronic right sacroiliac joint pain (724.6, M53.3) Status: Active Chronic low back pain (724.2, M54.5) Status: Active 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 therapy (V58.69, Z79.899) Status: Active Encounter for monitoring golimumab therapy (V58.83, Z51.81) Status: Active Abnormal urinalysis (791.9, R82.90) Status: Active Lumbar facet arthropathy (721.3, M47.816) Status: Active Lumbar spondylosis (721.3, M47.816) Status: Active Back muscle spasm (724.8, M62.830) Status: Active Morbid obesity (278.01, E66.01) Status: Active Chronic left sacroiliac pain (724.6, M53.3) Status: Active Other synovitis and tenosynovitis, left ankle and foot (727.06, M65.872) Status: Active Sprain of calcaneofibular ligament of left ankle, subsequent encounter (V58.89 , S93.412D) Status: Active Medications Name Dates Details Propranolol HCl - 20 MG Oral Tablet TAKE 1 TABLET TWICE DAILY as needed Quantity: 60 Refills: HECTOR TAVAREZ M.D. Start : 29-Dec-2018 Active traZODone HCl [...] Start : 14-Jan-2019 Active 28 Tablet Pack Proventil HFA 108 (90 Base) MCG/ACT Inhalation Aerosol Solution INHALE ONE TO TWO PUFFS BY MOUTH EVERY 4 TO 6 HOURS NEEDED Quantity: 1 Refills: 5 SHAW BUENROSTRO M.D. Start : 02-Feb-2019 Active 6.7 GM Inhaler Mesalamine 1.2 GM Oral Tablet Delayed Release TAKE 4 TABLET Every morning Quantity: 120 Refills: 11 ZEFERINO PENA M.D. Start : 02-Apr-2019 Active Ibuprofen 200 MG Oral Tablet Refills: 0 Start : 04-May-2019 Active Trezix 320.5-30-16 MG Oral Capsule TAKE 2 CAPSULES BY MOUTH EVERY 4 TO 6 HOURS NEEDED FOR PAIN Quantity: 60 Refills: 0 KAY N.PISAI Gale Start : 13-Jul-2019 Active Pregabalin 75 MG Oral Capsule TAKE 1 CAPSULE 3 TIMES DAILY. Quantity: 30 Refills: 0 KAY N.PISAI Gale Start : 19-May-2019 Active Fluticasone-Salmeterol 500-50 MCG/DOSE Inhalation Aerosol Powder Breath Activated INHALE 1 PUFF TWICE DAILY. Quantity: 1 Refills: 3 SHAW BUENROSTRO M.D. Start : 08-Apr-2019 Active 60 Each Pack CPAP Continuous Positive Airway Pressure Please provide [...] FOR 12HOURS. Quantity: 1 Refills: 0 HARLEY Garcia, ROXANN Start : 02-Feb-2019 Active 30 Patch Box Diclofenac Sodium 1 % Transdermal Gel APPLY 2 GM OF GEL TO AFFECTED AREA 4 TIMES DAILY. DO NOT APPLY MORE THAN 8 GM DAILY TO ANY ONE AFFECTED AREA. Quantity: 1 Refills: 1 HARLEY Garcia, ROXANN Start : 29-Jan-2019 Active 100 GM Tube Omeprazole 40 MG Oral Capsule Delayed Release TAKE 1 CAPSULE DAILY Quantity: 30 Refills: 6 ZEFERINO PENA M.D. Start : 23-Jan-2019 Active Allergies and Adverse Reactions Name Dates [...] smoker Vital Signs Date Test Result Details [id number] BP Systolic 118 mm[Hg] Status: Comments: Location: [...] Planned Goals not documented Planned Encounters Appointment; BRANDT BILL M.D. On: 13-Aug-2019 9:45 [...] 04-Aug-2019 13:30 Encounter Diagnosis: Problem not documented Appointment; ELOISE DAMON On: 07-Aug-2019 10:00 Encounter Diagnosis: Problem not documented
--- OUTSIDE RECORDS SUMMARY | 2019-08-13 11:58 | XMS REPORT | Summary of Care ---
:1980 Author Organization [facility] Address [address] [place] [address] Care Team Providers Name Role Phone JITENDRA Garcia, ALANA Unavailable Unavailable HARLEY Garcia, ROXANN Unavailable Unavailable ABEL Garcia, SHAW Unavailable Unavailable BECKY Garcia, ZEFERINO Unavailable Unavailable JAZLYN Hanson, COREY Unavailable Unavailable DOTTY Garcia, HECTOR Unavailable Unavailable KAY Hanson, ISAI Unavailable Unavailable NEERAJ SANDOVAL, RANJANA Unavailable Unavailable Becky SANDOVAL, Zeferino Unavailable Unavailable JAZLYN SANDOVAL [place], ELTON BOLANOS Unavailable Unavailable JITENDRA SANDOVAL, ALANA Unavailable Unavailable Rai SANDOVAL, Eloise Unavailable Unavailable DOTTY SANDOVAL, HECTOR Unavailable Unavailable KANE SANDOVAL, HOME Wilson Unavailable Unavailable LANDY SANDOVAL, BRANDT Rivera Unavailable Unavailable Corwin SANDOVAL, Jigar Unavailable Unavailable JAZLYN STEWARD, COREY Unavailable Unavailable JAZLYN SANDOVAL, PHAN Unavailable Unavailable HARLEY SANDOVAL [place], ROXANN Unavailable Unavailable Abel SANDOVAL, Shaw Unavailable [...] therapy (V58.83, Z51.81) Status: Active Encounter for detention current azathioprine therapy (V58.69, Z79.899) Status: Active Chronic low back pain (724.2, M54.5) Status: Active Chronic 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 Quantity: 90 Refills: 3 JITENDRA M.D., ALANA Start : 29-Dec-2018 Active Baclofen 20 MG Oral Tablet TAKE 1 TABLET 3 TIMES DAILY NEEDED. Quantity: 90 Refills: 3 ALANA HAM M.D. Start : 29-Dec-2018 Active 07/13 1-20 MG-MCG Oral Tablet TAKE [...] Tablet Refills: 0 Start : 04-May-2019 Active Fluticasone-Salmeterol 500-50 MCG/DOSE Inhalation Aerosol Powder Breath Activated INHALE 1 PUFF TWICE DAILY. Quantity: 1 Refills: 3 SHAW BUENROSTRO M.D. Start : 08-Apr-2019 Active 60 Each Pack Pregabalin 75 MG Oral Capsule TAKE 1 CAPSULE 3 TIMES DAILY. Quantity: 30 Refills: 0 KAY N.PISAI Gale Start : 19-May-2019 Active Trezix 320.5-30-16 MG Oral Capsule TAKE 2 CAPSULES BY MOUTH EVERY 4 TO 6 HOURS NEEDED FOR PAIN Quantity: 60 Refills: 0 KAY N.P.ISAI Start : 13-Jul-2019 Active Trintellix 20 MG Oral Tablet Take 1 table daily Quantity: 90 Refills: 0 HECTOR STORM M.D. Start : 13-Jan-2019 Active Diclofenac Sodium 1 % Transdermal Gel APPLY 2 GM OF GEL TO AFFECTED AREA 4 TIMES DAILY. DO NOT APPLY MORE THAN 8 GM DAILY TO ANY ONE AFFECTED AREA. Quantity: 1 Refills: 1 ROXANN SOUZA M.D. Start : 29-Jan-2019 Active 100 GM Tube Mesalamine 1.2 GM Oral Tablet Delayed Release TAKE 4 TABLET Every morning Quantity: 120 Refills: 11 ZEFERINO PENA M.D. Start : 02-Apr-2019 Active CPAP Continuous Positive Airway Pressure Please provide patient with all necessary CPAP supplies including mask (please fit), tubing, filters, etc. Good for ONE YEAR Quantity: 1 Refills: 0 SHAW BUENROSTRO M.D. Start : 09-Mar-2019 Active Lidocaine 5 % External Patch APPLY 1 PATCH TO THE AFFECTED AREA AND LEAVE IN PLACE FOR 12 HOURS, THEN REMOVE AND LEAVE OFF FOR 12HOURS. Quantity: 1 Refills: 0 HARLEY Garcia ROXANN Start : 02-Feb-2019 Active 30 Patch Box Omeprazole 40 MG Oral Capsule Delayed Release TAKE 1 CAPSULE DAILY Quantity: 30 Refills: 6 ZEFERINO PENA M.D. Start : 23-Jan-2019 Active traZODone HCl - 100 MG Oral Tablet TAKE 1 TABLET AT BEDTIME. Quantity: 90 Refills: 0 ELTON STORM M.D.GARFIELDDerick Start : 29-Dec-2018 Active Propranolol HCl - 20 MG Oral Tablet TAKE 1 TABLET TWICE DAILY as needed Quantity: 60 Refills: 1 HECTOR STORM M.D. Start : 29-Dec-2018 Active Allergies and Adverse [...] smoker Vital Signs Date Test Result Details [id number] BP Systolic 118 mm[Hg] Status: Comments: Location: [...]
--- OUTSIDE RECORDS SUMMARY | 2019-08-13 11:58 | XMS REPORT | Summary of Care ---
:1980 Author Organization [facility] Address [address] [place] [address] Care Team Providers Name Role Phone JITENDRA Garcia, ALANA Unavailable Unavailable HARLEY Garcia, ROXANN Unavailable Unavailable ABEL Garcia, SHAW Unavailable Unavailable BECKY Garcia, ZEFERINO Unavailable Unavailable JAZLYN Hanson, COREY Unavailable Unavailable DOTTY Garcia, HECTOR Unavailable Unavailable KAY Hanson, ISAI Unavailable Unavailable NEERAJ SANDOVAL, RANJANA Unavailable Unavailable Becky SANDOVAL, Zeferino Unavailable Unavailable JAZLYN SANDOVAL [place], ELTON BOLANOS Unavailable Unavailable JITENDRA SANDOVAL, ALANA Unavailable Unavailable Rai SANDOVAL, Eloise Unavailable Unavailable DOTTY SANDOVAL, HECTOR Unavailable Unavailable KANE SANDOVAL, HOME Wilson Unavailable Unavailable LANDY SANDOVAL, BRANDT Rivera Unavailable Unavailable Corwin SANDOVAL, Jigar Unavailable Unavailable JAZLYN STEWARD, COREY Unavailable Unavailable JAZLYN SANDOVAL, PHAN Unavailable Unavailable HARLEY SANDOVAL [place], ROXANN Unavailable Unavailable Abel SANDOVAL, Shaw Unavailable [...] TABLET DAILY. Quantity: 3 Refills: 3 COREY HOBOSN N.P. Start : 14-Jan-2019 Active 28 Tablet [...] smoker Vital Signs Date Test Result Details [id number] BP Systolic 118 mm[Hg] Status: Comments: Location: [...]
--- OUTSIDE RECORDS SUMMARY | 2019-08-13 11:59 | XMS REPORT | Summary of Care ---
:1980 Author Organization [facility] Address [address] [place] [address] Care Team Providers Name Role Phone JITENDRA Garcia, ALANA Unavailable Unavailable HARLEY Garcia, ROXANN Unavailable Unavailable ABEL Garcia, SHAW Unavailable Unavailable BECKY Garcia, ZEFERINO Unavailable Unavailable JAZLYN CAR, COREY Unavailable Unavailable DOTTY Garcia, HECTOR Unavailable Unavailable KAY CAR, ISAI Unavailable Unavailable NEERAJ SANDOVAL, RANJANA Unavailable Unavailable Becky SANDOVAL, Zeferino Unavailable Unavailable JAZLYN SANDOVAL [place], ELTON BOLANOS Unavailable Unavailable JITENDRA SANDOVAL, ALANA Unavailable Unavailable Rai SANDOVAL, Eloise Unavailable Unavailable DOTTY SANDOVAL, HECTOR Unavailable Unavailable KANE SANDOVAL, HOME Wilson Unavailable Unavailable LANDY SANDOVAL, BRANDT Rivera Unavailable Unavailable Jigar Alcala MD [...] therapy (V58.83, Z51.81) Status: Active Encounter for fpc current azathioprine therapy (V58.69, Z79.899) Status: Active [...] Status: Active Headache (784.0, R51) Status: Active Lumbar facet arthropathy (721.3, M47.816) Status: Active Lumbar spondylosis (721.3, M47.816) Status: Active Back muscle spasm (724.8, M62.830) Status: Active Morbid obesity (278.01, E66.01) Status: Active Chronic left sacroiliac pain (724.6, M53.3) Status: Active Medications Name Dates Details Propranolol [...] JITENDRA Garcia ALANA Start : 29-Dec-2018 Active 07/13 1-20 MG-MCG Oral Tablet TAKE 1 TABLET DAILY. Quantity: 3 Refills: 3 COREY HOBSON APRN Start : 14-Jan-2019 Active 28 Tablet Pack [...] ZEFERINO PENA M.D. Start : 02-Apr-2019 Active Fluticasone-Salmeterol 500-50 MCG/DOSE Inhalation Aerosol Powder Breath Activated INHALE 1 PUFF TWICE DAILY. Quantity: 1 Refills: 3 SHAW BUENROSTRO M.D. Start : 08-Apr-2019 Active 60 Each Pack Ibuprofen 200 MG Oral Tablet Refills: 0 Start : 04-May-2019 Active Pregabalin 75 MG Oral Capsule TAKE 1 CAPSULE 3 TIMES DAILY. Quantity: 30 Refills: 0 ISAI VILLANUEVA APRN Start : 19-May-2019 Active Trezix 320.5-30-16 MG Oral Capsule TAKE 2 CAPSULES BY MOUTH EVERY 4 TO 6 HOURS NEEDED FOR PAIN Quantity: 60 Refills: 0 KAY CAR ISAI Start : 13-Jul-2019 Active CPAP Continuous Positive Airway Pressure Please provide patient with all necessary CPAP supplies including mask (please fit), tubing, filters, etc. Good for ONE YEAR Quantity: 1 Refills: 0 ABEL Garcia CHONG Start : 09-Mar-2019 Active Trintellix 20 MG Oral Tablet Take 1 table daily Quantity: 90 Refills: 0 DOTTY Garcia HECTOR Start : 13-Jan-2019 Active Baclofen 20 MG Oral Tablet TAKE 1 TABLET 3 TIMES DAILY NEEDED. Quantity: 90 Refills: 3 ASHLEY HAM M.D.A Start : 29-Dec-2018 Active Allergies and Adverse [...] smoker Vital Signs Date Test Result Details [id number] BP Systolic 118 mm[Hg] Status: Comments: Location: [...] Instructions not documented Encounters Appointment; COREY HOBSON APRN On: 29-Dec-2018 13:00 Encounter Diagnosis: Problem not documented Appointment; ROXANN SOUZA M.D. On: 13-Jan-2019 8:00 Encounter Diagnosis: Problem not documented Appointment; SHAW BUENROSTRO M.D. On: 14-Jan-2019 8:30 Encounter Diagnosis: Problem not documented Appointment; DICKSON CHAPA On: 14-Jan-2019 9:00 Encounter Diagnosis: Problem not documented Appointment; LARRY CHAPA On: 14-Jan-2019 10:00 Encounter Diagnosis: Problem not documented Appointment; COREY HOBSON APRN On: 14-Jan-2019 13:00 Encounter Diagnosis: Problem not [...] Diagnosis: Problem not documented Appointment; KOBE MEDELLIN APRN On: 05-Mar-2019 10:30 Encounter Diagnosis: Problem not [...] Diagnosis: Problem not documented Appointment; ISAI VILLANUEVA APRN On: 19-May-2019 8:00 Encounter Diagnosis: Problem not documented Appointment; BRANDT BILL M.D. On: 23-Jun-2019 11:15 Encounter Diagnosis: Problem not documented Appointment; ALANA HAM M.D. On: 13-Jul-2019 13:00 Encounter Diagnosis: Problem not documented Appointment; BRANDT BILL M.D. On: 04-Aug-2019 13:30 Encounter Diagnosis: Problem not documented Appointment; ELOISE DAMON On: 07-Aug-2019 10:00 Encounter Diagnosis: Problem not documented
--- OUTSIDE RECORDS SUMMARY | 2019-08-13 12:00 | XMS REPORT | Summary of Care ---
:1980 Author Name Kerry Joe M.A. 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 Start : 14-Jan-2019 Active 28 Tablet Pack [...] PAIN Quantity: 60 Refills: 0 ISAI VILLANUEVA APRN Start : 13-Jul-2019 Active Allergies and Adverse [...] tear (836.0, S83.249A) Status: Resolved History of Other synovitis and tenosynovitis, left ankle and foot (727.06, M65.872) Status: Resolved History of pancreatitis (V12.79, Z87.19) [...] smoker Vital Signs Date Test Result Details No Known Vitals to report Results Date Description Value Details Results not documented Plan of Care Name Dates Details Planned Observations Planned Goals not documented Planned Encounters Appointment; HECTOR STORM M.D. On: 26-Aug-2019 11:30 Appointment; SINCERE SALVADOR LCSW On: 18-Sep-2019 13:00 Appointment; ROXANN SOUZA M.D. On: 25-Sep-2019 11:30 Appointment; ALANA HAM M.D. On: 12-Oct-2019 11:30 Appointment; BRANDT BILL M.D. On: 15-Oct-2019 10:45 Instructions Name Dates Details Instructions not documented [...] 07-Aug-2019 10:00 Encounter Diagnosis: Problem not documented Appointment; BRANDT BILL M.D. On: 13-Aug-2019 9:45 Encounter Diagnosis: Problem not documented
--- OUTSIDE RECORDS SUMMARY | 2019-08-13 12:00 | XMS REPORT | Summary of Care ---
:1980 Author Organization [facility] Address [address] [place] [address] Care Team Providers Name Role Phone JITENDRA Garcia, ALANA Unavailable Unavailable HARLEY Garcia, ROXANN Unavailable Unavailable ABEL Garcia, SHAW Unavailable Unavailable BECKY Garcia, ZEFERION Unavailable Unavailable JAZLYN CAR, COREY Unavailable Unavailable DOTTY Garcia, HECTOR Unavailable Unavailable KAY CAR, ISAI Unavailable Unavailable NEERAJ SANDOVAL, RANJANA Unavailable Unavailable Becky SANDOVAL, Zeferino Unavailable Unavailable JAZLYN SANDOVAL [place], ELTON BOLANOS Unavailable Unavailable JITENDRA SANDOVAL, ALANA Unavailable Unavailable Rai SANDOVAL, Eloise Unavailable Unavailable DOTTY SANDOVAL, HECTOR Unavailable Unavailable KANE SANDOVAL, HOME Wilson Unavailable Unavailable LANDY SANDOVAL, BRANDT Rivera Unavailable Unavailable Jigar Alcala MD Unavailable Unavailable JAZLYN STEWARD, COREY Unavailable Unavailable JAZLYN SANDOVAL, PHAN Unavailable Unavailable HARLEY SNADOVAL [place], ROXANN Unavailable Unavailable Abel SANDOVAL, Shaw Unavailable [...] therapy (V58.83, Z51.81) Status: Active Encounter for penitentiary current azathioprine therapy (V58.69, Z79.899) Status: Active [...] HECTOR STORM M.D. Start : 13-Jan-2019 Active Omeprazole 40 MG Oral Capsule Delayed Release [...] TIMES DAILY. Quantity: 30 Refills: 0 KAY YEENISAI Start : 19-May-2019 Active Trezix 320.5-30-16 MG Oral Capsule TAKE 2 CAPSULES BY MOUTH EVERY 4 TO 6 HOURS NEEDED FOR PAIN Quantity: 60 Refills: 0 KAY JOCELINE ISAI Start : 13-Jul-2019 Active 07/13 1-20 MG-MCG Oral Tablet TAKE 1 TABLET DAILY. Quantity: 3 Refills: 3 COREY HOBSON APRN Start : 14-Jan-2019 Active 28 Tablet Pack Ibuprofen 200 MG Oral Tablet Refills: 0 Start : 04-May-2019 Active Allergies and Adverse Reactions Name Dates [...]
--- NOTE | 2019-08-13 12:45 | RAD REPORT ---
EXAM DESCRIPTION: RAD - Chest Single View - 08/13/2019 12:38 pm CLINICAL HISTORY: CHEST PAIN, left-sided chest pain COMPARISON: Chest Single View dated 02/07/2018 TECHNIQUE: AP portable chest image was obtained 08/13/2019 12:38 pm . FINDINGS: Lungs are underinflated accentuating vasculature and lung markings. Interstitial pattern i s not outside of normal range for this degree of shallow inspiration. No acute vascular engorgement. Heart and vasculature are normal. No measurable pleural effusion and no pneumothorax. No acute bony a bnormality seen. No acute aortic findings suspected. IMPRESSION: Shallow inspiration film without acute cardiopulmonary finding.
[2019-08-13 12:57] LABS: Absolute Lymphocytes (CBC) 2.2 K/uL (0.7-4.9); Basophils % 0.7 % (0-1.3); Hematocrit 42.1 % (36.0-45.0); Lymphocytes % 24.5 % (15.3-44.8); MPV 7.7 fL (7.6-11.3); RBC Red Blood Cell Count 4.73 M/uL (3.86-4.86)
[2019-08-13 12:59] LABS: Protime INR 1.04
[2019-08-13 13:13] LABS: ALT/SGPT 19 U/L (12-78); AST/SGOT 13 U/L (15-37); Albumin 3.3 g/dL (3.4-5.0); Alkaline Phosphatase 84 U/L (45-117); BUN Blood Urea Nitrogen 22 mg/dL (7-18); Bicarbonate 23 mmol/L (21-32); Bilirubin Direct 0.1 mg/dL (0-0.2); Bilirubin Total 0.4 mg/dL (0.2-1.0); Glucose Level 86 mg/dL (74-106); Magnesium 1.9 mg/dL (1.8-2.4); NT PRO-BNP 227 pg/mL (<125); Potassium 4.6 mmol/L (3.5-5.1); Protein, Total 7.4 g/dL (6.4-8.2); Sodium Level 137 mmol/L (136-145); Troponin (Emerg Dept Use Only) < 0.02 ng/mL (0.0-0.045)
--- NOTE | 2019-08-13 13:26 | ER ---
Nurse's Notes [facility] Name: Emilia Lora Age: 39 yrs Sex: Female : 1980 Arrival Date: 08/13/2019 Time: 11:55 Bed 24 Private MD: Diagnosis: Chest pain, unspecified Presentation: 08/13 12:03 Presenting complaint: Intermittent sharp left sided chest pain that radiates to left hb shoulder and arm and SOB x 3-4 days. Transition of care: patient was not received from another setting of care. Onset of symptoms was August 10, 2019. Risk Assessment: Do you want to hurt yourself or someone else? Patient reports no desire to harm self or others. Care prior to arrival: None. 12:03 Method Of Arrival: Ambulatory hb 12:03 Acuity: VINITA 3 hb 13:00 Initial Sepsis Screen: Does the patient meet any 2 criteria? No. Patient's initial mg2 sepsis screen is negative. Does the patient have a suspected source of infection? No. Patient's initial sepsis screen is negative. 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 - Coronavirus screen:: The patient has NOT traveled to [place] in the past 14 days. The patient has NOT had contact with known/suspected case of Coronavirus? Proceed with normal triage procedures. - Social history:: Smoking status: Patient denies any tobacco usage or history of. - Ebola Screening: : No symptoms or risks identified at this time. Screenin:14 Abuse screen: Denies threats or abuse. Denies injuries from another. Nutritional mg2 screening: No deficits noted. Tuberculosis screening: No symptoms or risk factors identified. Fall Risk IV access (20 points). Assessment: 13:10 General: Appears in no apparent distress. comfortable, Behavior is calm, cooperative. mg2 Pain: Complains of pain in chest Pain radiates to left arm. Pain: Pain currently is 2 out of 10 on a pain scale. Quality of pain is described as aching, Pain began gradually, Is intermittent. Neuro: Level of Consciousness is awake, alert, obeys commands, Oriented to person, place, time, situation. Cardiovascular: Reports chest pain, shortness of breath, Capillary refill < 3 seconds Patient's skin is warm and dry. Respiratory: Airway is patent Respiratory effort is even, unlabored, Respiratory pattern is regular, symmetrical. GI: No signs and/or symptoms were reported involving the gastrointestinal system. : No signs and/or symptoms were reported regarding the genitourinary system. EENT: No signs and/or symptoms were reported regarding the EENT system. Derm: Skin is intact, is healthy with good turgor, Skin is pink, warm \T\ dry. normal. Musculoskeletal: Circulation, motion, and sensation intact. Capillary refill < 3 seconds. Vital Signs: 12:03 BP 119 / 85; Pulse 89; Resp 16; Temp 97.1; Pulse Ox 98% ; Weight 149.69 kg; Height 5 hb ft. 9 in. (175.26 cm); Pain 0/10; 13:15 BP 109 / 77; Pulse 78; Resp 18; Pulse Ox 98% on R/A; mg2 12:03 Body Mass Index 48.73 (149.69 kg, 175.26 cm) hb ED Course: 11:55 Patient arrived in ED. mr 11:58 Juan Jose Crawford PA is PHCP. jr8 11:58 Wicho Austin MD is Attending Physician. jr8 12:03 Arm band placed on. hb 12:04 Triage completed. hb 12:06 Robby Ugarte, MITALI is Primary Nurse. mg2 12:37 X-ray completed. Portable x-ray completed in exam room. Patient tolerated procedure jb2 well. 12:44 XRAY Chest (1 view) In Process Unspecified. EDMS 12:45 Inserted saline lock: 22 gauge in right forearm, using aseptic technique. mg2 13:07 EKG done, by unit technician. reviewed by Juan Jose BARRIGA. at1 13:14 Patient has correct armband on for positive identification. rn telephone triage on. Pulse mg2 ox on. NIBP on. 13:14 No provider procedures requiring assistance completed. Patient maintains SpO2 mg2 saturation greater than 95% on room air. 13:30 IV discontinued, intact, bleeding controlled, No redness/swelling at site. Pressure mg2 dressing applied. Administered Medications: No medications were administered Outcome: 13:22 Discharge ordered by MD. wood 13:30 Discharged to home ambulatory. mg2 13:30 Condition: stable 13:30 Discharge instructions given to patient, Instructed on discharge instructions, follow up and referral plans. Demonstrated understanding of instructions, follow-up care. 13:31 Patient left the ED. mg2 Signatures: Dispatcher [employer] EDIL ClemYecenia mr BookerWilver2 Juan Jose Crawford PA PA jr8 Marguerite Echeverria, social services manager EKG Tat1 Kim Nash, RN RN Robby Ugarte RN RN mg2
--- NOTE | 2019-08-13 13:27 | EDPHYS ---
Physician Documentation [facility] Name: Emilia Lora Age: 39 yrs Sex: Female : 1980 Arrival Date: 08/13/2019 Time: 11:55 Bed 24 Private MD: ED Physician Wicho Austin HPI: 08/13 13:15 This 39 yrs old Female presents to ER via Ambulatory with complaints of jr8 Shoulder Pain, Chest Pain. 13:15 The patient or guardian reports chest pain that is located primarily in the anterior jr8 chest wall, left. The pain radiates to the left shoulder. Associated signs and symptoms: The patient has no apparent associated signs or symptoms. The chest pain is described as a pressure. Duration: The patient or guardian reports multiple episodes, that are intermittent, that wax and wane. Modifying factors: The symptoms are alleviated by nothing. the symptoms are aggravated by nothing. Severity of pain: At its worst the pain was mild in the emergency department the pain is unchanged. The patient has not experienced similar symptoms in the past. The patient has not recently seen a physician. 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 - Coronavirus screen:: The patient has NOT traveled to [employer] in the past 14 days. The patient has NOT had contact with known/suspected case of Coronavirus? Proceed with normal triage procedures. - Social history:: Smoking status: Patient denies any tobacco usage or history of. - Ebola Screening: : No symptoms or risks identified at this time. ROS: 13:15 Eyes: Negative for injury, pain, redness, and discharge, ENT: Negative for injury, jr8 pain, and discharge, Neck: Negative for injury, pain, and swelling, Respiratory: Negative for shortness of breath, cough, wheezing, and pleuritic chest pain, Abdomen/GI: Negative for abdominal pain, nausea, vomiting, diarrhea, and constipation, Back: Negative for injury and pain, MS/Extremity: Negative for injury and deformity, Skin: Negative for injury, rash, and discoloration, Neuro: Negative for headache, weakness, numbness, tingling, and seizure. 13:15 Cardiovascular: Positive for chest pain, Negative for edema, orthopnea, palpitations, paroxysmal nocturnal dyspnea. Exam: 13:15 Eyes: Pupils equal round and reactive to light, extra-ocular motions intact. Lids and jr8 lashes normal. Conjunctiva and sclera are non-icteric and not injected. Cornea within normal limits. Periorbital areas with no swelling, redness, or edema. ENT: Nares patent. No nasal discharge, no septal abnormalities noted. Tympanic membranes are normal and external auditory canals are clear. Oropharynx with no redness, swelling, or masses, exudates, or evidence of obstruction, uvula midline. Mucous membranes moist. Neck: Trachea midline, no thyromegaly or masses palpated, and no cervical lymphadenopathy. Supple, full range of motion without nuchal rigidity, or vertebral point tenderness. No Meningismus. Chest/axilla: Normal chest wall appearance and motion. Nontender with no deformity. No lesions are appreciated. Cardiovascular: Regular rate and rhythm with a normal S1 and S2. No gallops, murmurs, or rubs. Normal PMI, no JVD. No pulse deficits. Respiratory: Lungs have equal breath sounds bilaterally, clear to auscultation and percussion. No rales, rhonchi or wheezes noted. No increased work of breathing, no retractions or nasal flaring. Abdomen/GI: Soft, non-tender, with normal bowel sounds. No distension or tympany. No guarding or rebound. No evidence of tenderness throughout. Back: No spinal tenderness. No costovertebral tenderness. Full range of motion. Skin: Warm, dry with normal turgor. Normal color with no rashes, no lesions, and no evidence of cellulitis. MS/ Extremity: Pulses equal, no cyanosis. Neurovascular intact. Full, normal range of motion. Neuro: Awake and alert, GCS 15, oriented to person, place, time, and situation. Cranial nerves II-XII grossly intact. Motor strength 5/5 in all extremities. Sensory grossly intact. Cerebellar exam normal. Normal gait. 13:15 ECG was reviewed by the Attending Physician. Vital Signs: 12:03 BP 119 / 85; Pulse 89; Resp 16; Temp 97.1; Pulse Ox 98% ; Weight 149.69 kg; Height 5 hb ft. 9 in. (175.26 cm); Pain 0/10; 13:15 BP 109 / 77; Pulse 78; Resp 18; Pulse Ox 98% on R/A; mg2 12:03 Body Mass Index 48.73 (149.69 kg, 175.26 cm) hb MDM: 12:10 Patient medically screened. jr8 13:20 Differential diagnosis: abnormal EKG, acute myocardial infarction, acute pericarditis, jr8 anxiety, chest wall pain, cholecystitis, Cholelithiasis costochondritis, esophagitis, gastritis, gastroesophageal reflux disease (GERD), pancreatitis, peptic ulcer disease, pleurisy, pneumonia, pulmonary embolus, stable angina, thoracic aortic disection, unstable angina. Data reviewed: vital signs, nurses notes, lab test result(s), EKG, radiologic studies, plain films. Data interpreted: Pulse oximetry: on room air is 98 %. Interpretation: normal. Counseling: I had a detailed discussion with the patient and/or guardian regarding: the historical points, exam findings, and any diagnostic results supporting the discharge/admit diagnosis, lab results, radiology results, the need for outpatient follow up, a family practitioner, to return to the emergency department if symptoms worsen or persist or if there are any questions or concerns that arise at home. ED course: Patient without pain currently. VS stable and no acute findings on ECG, labs, or imaging. Will d/c home to f/u with PCP. If worse or other symptoms were to arise, patient knows to come back for further evaluation . 08/13 12:22 Order name: Magnesium; Complete Time: 13:20 08/13 12:22 Order name: Basic Metabolic Panel; Complete Time: 13:20 08/13 12:22 Order name: CBC with Diff 08/13 12:22 Order name: LFT's; Complete Time: 13:20 08/13 12:22 Order name: NT PRO-BNP; Complete Time: 13:20 08/13 12:22 Order name: PT-INR; Complete Time: 13:17 08/13 12:22 Order name: Troponin (emerg Dept Use Only); Complete Time: 13:20 8 02/20 12:22 Order name: XRAY Chest (1 view) 08/13 12:22 Order name: EKG; Complete Time: 12:08/13 12:22 Order name: Cardiac monitoring; Complete Time: 13:08/13 12:22 Order name: EKG - Nurse/Tech; Complete Time: 12:08/13 12:22 Order name: IV Saline Lock; Complete Time: 13:08/13 12:22 Order name: Labs collected and sent; Complete Time: :08/13 12:22 Order name: O2 Per Protocol; Complete Time: 13:08/13 12: Order name: O2 Sat Monitoring; Complete Time: : EC: Rate is 82 beats/min. Rhythm is regular, Sinus Rhythm. QRS [place] is Normal. [place] interval jr8 is normal at 144 msec. QRS interval is normal at 72 msec. QT interval is normal at 411 msec. No Q waves. T waves are Normal. No ST changes noted. Clinical impression: Normal ECG and No evidence of ischemia. Interpreted by me. Reviewed by me. Administered Medications: No medications were administered Disposition: 14:19 Co-signature as Attending Physician, Wicho Austin MD I agree with the assessment and kdr plan of care. Disposition: 08/13/19 13:22 Discharged to Home. Impression: Chest pain, unspecified. - Condition is Stable. - Discharge Instructions: Nonspecific Chest Pain, Chest Wall Pain. - Medication Reconciliation Form, Thank You Letter, Antibiotic Education, Prescription Opioid Use form. - Follow up: Private Physician; When: 2 - 3 days; Reason: Recheck today's complaints, Continuance of care, Re-evaluation by your physician. - Problem is new. - Symptoms have improved. Signatures: Dispatcher [employer] EDMS Wicho Austin MD MD [facility] Juan Jose Crawford PA PA jr8 Kim Nash, RN RN Robby Ugarte RN RN mg2 Corrections: (The following items were deleted from the chart) 13:31 13:22 08/13/2019 13:22 Discharged to Home. Impression: Chest pain, unspecified. mg2 Condition is Stable. Forms are Medication Reconciliation Form, Thank You Letter, Antibiotic Education, Prescription Opioid Use. Follow up: Private Physician; When: 2 - 3 days; Reason: Recheck today's complaints, Continuance of care, Re-evaluation by your physician. Problem is new. Symptoms have improved. jr8
[2019-08-13 13:43] VITALS: TEMP 97.1; O2SAT 98
[2019-08-13 13:45] VITALS: BP 109/77
--- NOTE | 2019-08-14 07:54 | EKG ---
Test Date: 2019-08-13 Test Time: 12:10:56 Pie Cutter: NIGEL MEASUREMENT RESULTS: Intervals: Rate: 82 [place]: 144 QRSD: 72 QT: 352 QTc: 411 [place]: P: 44 AZ: 144 QRS: 33 T: 39 INTERPRETIVE STATEMENTS: Normal sinus rhythm Normal ECG Compared to ECG 02/07/2018 21:44:42 No significant changes Electronically Signed On 08-14-19 07:51:56 RN LACTATION by Nico Dan
== END 2019-08-13 13:31 | disposition home or self-care (01) ==
LOC: ER 11:52
DX: R07.9 Chest pain, unspecified (principal); Z88.1 Allergy status to other antibiotic agents; Z88.2 Allergy status to sulfonamides; Z88.8 Allergy status to other drugs, medicaments and biological substances
CPT/HCPCS: 36415; 71045; 80048; 80076; 83735; 83880; 84484; 85025; 85610; 93005; 99285

== ENCOUNTER 2019-12-31 16:36 | Emergency (ER) | payer OTHER ==
--- NOTE | 2019-12-31 17:54 | RAD REPORT ---
EXAM DESCRIPTION: RAD - Foot Left 3 View - 12/31/2019 5:25 pm CLINICAL HISTORY: pain Fall, pain, trauma COMPARISON: None FINDINGS: Left ankle and left foot - multiple projections are submitted Moderate ankle joint effusion is present. Small plantar calcaneal spur. Bony fracture fragment is see n along the dorsum of the midfoot at the level of the tarsal- metatarsal articulation. Although nonsp ecific, this could indicate a Lisfranc injury. Advise followup nonemergent MR imaging of the foot for further assessment.
--- NOTE | 2019-12-31 17:58 | EDPHYS ---
Physician Documentation [facility] Name: Emilia Lora Age: 39 yrs Sex: Female : 1980 Arrival Date: 12/31/2019 Time: 16:50 Bed 12 Private MD: ED Physician Wicho Austin HPI: 12/30 16:54 This 39 yrs old Female presents to ER via Wheelchair with complaints of Fall kb Injury. 16:54 Details of fall: The patient fell from an upright position, while walking. Onset: The kb symptoms/episode began/occurred just prior to arrival. Associated injuries: The patient sustained anterior aspect of left ankle, decreased range of motion, painful injury, swelling. Severity of symptoms: At their worst the symptoms were moderate, in the emergency department the symptoms are unchanged. The patient has not experienced similar symptoms in the past. The patient has not recently seen a physician. Pt reports she was walking and stepped into a hole, twisting her ankle. 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 - Social history:: Smoking status: Patient denies any tobacco usage or history of. ROS: 16:53 Constitutional: Negative for fever, chills, and weight loss, Cardiovascular: Negative kb for chest pain, palpitations, and edema, Respiratory: Negative for shortness of breath, cough, wheezing, and pleuritic chest pain, Abdomen/GI: Negative for abdominal pain, nausea, vomiting, diarrhea, and constipation, Skin: Negative for injury, rash, and discoloration, Neuro: Negative for headache, weakness, numbness, tingling, and seizure. 16:53 MS/extremity: Positive for injury or acute deformity, decreased range of motion, pain, swelling, tenderness, of the anterior aspect of left ankle. Exam: 16:53 Constitutional: This is a well developed, well nourished patient who is awake, alert, kb and in no acute distress. Head/Face: Normocephalic, atraumatic. Chest/axilla: Normal chest wall appearance and motion. Nontender with no deformity. No lesions are appreciated. Cardiovascular: Regular rate and rhythm with a normal S1 and S2. No gallops, murmurs, or rubs. Normal PMI, no JVD. No pulse deficits. Respiratory: Lungs have equal breath sounds bilaterally, clear to auscultation and percussion. No rales, rhonchi or wheezes noted. No increased work of breathing, no retractions or nasal flaring. Abdomen/GI: Soft, non-tender, with normal bowel sounds. No distension or tympany. No guarding or rebound. No evidence of tenderness throughout. Skin: Warm, dry with normal turgor. Normal color with no rashes, no lesions, and no evidence of cellulitis. Neuro: Awake and alert, GCS 15, oriented to person, place, time, and situation. Cranial nerves II-XII grossly intact. Motor strength 5/5 in all extremities. Sensory grossly intact. Cerebellar exam normal. Normal gait. 16:53 Musculoskeletal/extremity: Extremities: grossly normal except: noted in the anterior aspect of left ankle: decreased ROM, pain, swelling, tenderness, ROM: limited active range of motion due to pain, in the anterior aspect of left ankle, Circulation is intact in all extremities. Sensation intact. Weight bearing: is unable to bear weight. Vital Signs: 16:51 BP 118 / 75; Pulse 98; Resp 19 S; Temp 99.1(TE); Pulse Ox 100% on R/A; Weight 149.69 kg ca1 (R); Height 5 ft. 9 in. (175.26 cm) (R); 16:51 Body Mass Index 48.73 (149.69 kg, 175.26 cm) ca1 MDM: 16:52 Patient medically screened. kb 16:53 Data reviewed: vital signs, nurses notes. Data interpreted: Pulse oximetry: on room air kb is 100 %. Interpretation: normal. 17:56 Counseling: I had a detailed discussion with the patient and/or guardian regarding: the kb historical points, exam findings, and any diagnostic results supporting the discharge/admit diagnosis, radiology results, the need for outpatient follow up, a orthopedic surgeon, to return to the emergency department if symptoms worsen or persist or if there are any questions or concerns that arise at home. 12/30 16:52 Order name: Ankle Left 3 View XRAY 12/30 16:57 Order name: Foot Left 3 View XRAY 12/30 17:56 Order name: RAD; Complete Time: 17:56 [facility] 12/30 17:56 Order name: Short Leg Splint; Complete Time: 18:29 kb Administered Medications: 17:54 Drug: [place] 10 mg-325 mg 1 tabs {Note: rass 0.} Route: PO; ca1 18:29 Follow up: Response: No adverse reaction; Medication administered at discharge. ss Disposition: 12/31 15:57 Co-signature as Attending Physician, Wicho Austin MD I agree with the assessment and kdr plan of care. Disposition: 12/31/19 17:57 Discharged to Home. Impression: Pain in left foot. - Condition is Stable. - Discharge Instructions: Metatarsal Fracture, Musculoskeletal Pain. - Prescriptions for Tylenol- Codeine #3 300-30 mg Oral Tablet - take 1 tablet by ORAL route every 6 hours As needed; 15 tablet. - Medication Reconciliation Form, Thank You Letter, Antibiotic Education, Prescription Opioid Use form. - Follow up: Emergency Department; When: As needed; Reason: Worsening of condition. Follow up: Private Physician; When: 2 - 3 days; Reason: Recheck today's complaints, Continuance of care, Re-evaluation by your physician. Signatures: Dispatcher [employer] EDPR Monica Torres, DOOR TO DOOR SELLING DISTRIBUTOR-C DOOR TO DOOR SELLING DISTRIBUTOR-Wicho Monaco MD MD [facility] Debi Garner RN RN ss Acob, Cheryl, RN RN ca1 Corrections: (The following items were deleted from the chart) 12/30 18:29 17:56 Crutches ordered. [facility] 18:33 17:57 12/31/2019 17:57 Discharged to Home. Impression: Pain in left foot. Condition is ss Stable. Forms are Medication Reconciliation Form, Thank You Letter, Antibiotic Education, Prescription Opioid Use. Follow up: Emergency Department; When: As needed; Reason: Worsening of condition. Follow up: Private Physician; When: 2 - 3 days; Reason: Recheck today's complaints, Continuance of care, Re-evaluation by your physician. kb
--- NOTE | 2019-12-31 17:58 | ER ---
Nurse's Notes [facility] Name: Emilia Lora Age: 39 yrs Sex: Female : 1980 Arrival Date: 12/31/2019 Time: 16:50 Bed 12 Private MD: Diagnosis: Pain in left foot Presentation: 12/30 16:51 Chief complaint: Patient states: Stepped in a hole the apartment. Reports L ankle pain ca1 and swelling. C/O L foot pain. Splint done my EMS. Coronavirus screen: Proceed with normal triage. Patient denies a cough. Patient denies shortness of breath or difficulty breathing. Patient denies measured and/or subjective temperature greater than 100.4F prior to today's visit. Patient denies travel on a cruise ship or to a country the [facility] currently lists as an affected area. Patient denies contact with known and/or suspected case of COVID-19. Ebola Screen: Patient negative for fever greater than or equal to 101.5 degrees Fahrenheit, and additional compatible Ebola Virus Disease symptoms Patient denies exposure to infectious person. Patient denies travel to an Ebola-affected area in the 21 days before illness onset. No symptoms or risks identified at this time. Initial Sepsis Screen: Does the patient meet any 2 criteria? No. Patient's initial sepsis screen is negative. Does the patient have a suspected source of infection? No. Patient's initial sepsis screen is negative. Risk Assessment: Do you want to hurt yourself or someone else? Patient reports no desire to harm self or others. Onset of symptoms was December 31, 2019. 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 - Social history:: Smoking status: Patient denies any tobacco usage or history of. Assessment: 18:15 General: Appears uncomfortable, Behavior is calm, appropriate for age. Pain: Complains ss of pain in anterior aspect of left ankle Pain currently is 8 out of 10 on a pain scale. Quality of pain is described as aching, tender, throbbing. Neuro: Level of Consciousness is awake, alert, obeys commands, Oriented to person, place, time, situation. Cardiovascular: Capillary refill < 3 seconds is brisk in bilateral fingers. Respiratory: Airway is patent Respiratory effort is even, unlabored, Respiratory pattern is regular, symmetrical. GI: Patient currently denies diarrhea, pain, vomiting. :. EENT: Oral mucosa is moist. Throat is clear. Derm: Skin is pink, warm \T\ dry. normal. Musculoskeletal: Swelling present in anterior aspect of left ankle. Vital Signs: 16:51 BP 118 / 75; Pulse 98; Resp 19 S; Temp 99.1(TE); Pulse Ox 100% on R/A; Weight 149.69 kg ca1 (R); Height 5 ft. 9 in. (175.26 cm) (R); 16:51 Body Mass Index 48.73 (149.69 kg, 175.26 cm) ca1 ED Course: 16:50 Patient arrived in ED. mr 16:52 Monica Torres FNP-C is [facility]. kb 16:52 Wicho Austin MD is Attending Physician. kb 16:53 Triage completed. ca1 16:54 Arm band placed on right wrist. ca1 18:29 Debi Garner RN is Primary Nurse. ss 18:31 No provider procedures requiring assistance completed. Patient did not have IV access ss during this emergency room visit. Administered Medications: 17:54 Drug: [place] 10 mg-325 mg 1 tabs {Note: rass 0.} Route: PO; ca1 18:29 Follow up: Response: No adverse reaction; Medication administered at discharge. ss Outcome: 17:57 Discharge ordered by . kb 18:31 Discharged to home ambulatory. ss 18:31 Condition: good 18:31 Discharge instructions given to patient, Instructed on discharge instructions, follow up and referral plans. Demonstrated understanding of instructions, follow-up care, medications, splint care. 18:33 Patient left the ED. ss Signatures: oMnica Torres FNP-C FNP-Yecenia Miller mr Debi Garner, RN RN ss Han, Kiarra, RN RN ca1
[2019-12-31] MEDS ORDERED: HYDROCODONE/APAP 10/325 TAB ONE (18:02)
[2019-12-31 18:55] VITALS: BP 118/75; TEMP 99.1; O2SAT 100
--- OUTSIDE RECORDS SUMMARY | 2019-12-31 21:53 | XMS REPORT | Clinical Summary ---
:1980 Author Organization [facility] Address [address] [place] [address] Care Team Providers Name Role Phone Amanda Gonzalez MD Primary Care Provider Allergies Active Allergy Reactions Severity Noted Date Comments Adhesive Itching 04/30/2016 Skin turns red Adhesive Tape-Silicones Itching 01/23/2016 Skin turns red Cephalexin Itching 04/30/2016 Ciprofloxacin 01/22/2016 Tachycardia Duloxetine Hcl 05/14/2011 Serotonin syn drome Levofloxacin Palpitations High 01/22/2016 Tachycardia Tapentadol Itching 01/14/2015 Skin turns red Tolmetin Swelling 04/30/2016 Face and tongue Medications Medication Sig Dispensed Refills Start Date End Date Status buPROPion XL Take 300 mg by 0 Ac tive (WELLBUTRIN XL) 300 mouth daily. MG 24 hr tablet escitalopram Take 20 mg by mouth 0 03/20/2016 Active (LEXAPRO) 20 MG daily. tablet L. RHAMNOSUS Take 1 tablet by 0 Active GG/INULIN mouth daily. (CULTURELLE PROBIOTICS ORAL) traZODone (DESYREL) Take 100 mg by 0 Active 100 MG tablet mouth 2 (two) times a day. mesalamine (LIALDA) Take 1,200 mg by 0 Active 1.2 gram EC tablet mouth 4 (four) times a day. norethindrone-e.estr Take 1 tablet by 0 Active adiol-iron (LOESTRIN mouth daily. 24 FE) 1 mg-20 mcg (24)/75 mg (4) per tablet clonAZEPAM 0 06/02/2016 Active (KlonoPIN) 0.5 MG tablet mometasone (NASONEX) 2 sprays into each 17 g 3 10/01/2016 Active 50 mcg/actuation nostril daily. nasal spray albuterol (PROAIR Inhale 1-2 puffs 18 g 3 10/01/2016 Active HFA,PROVENTIL every 6 (six) hours HFA,VENTOLIN HFA) 90 as needed for mcg/actuation shortness of inhaler breath. ADVAIR DISKUS 500-50 INHALE ONE PUFF BY 60 each 0 04/24/2017 Active mcg/dose DISKUS MOUTH TWICE A DAY cetirizine (ZyrTEC) TAKE ONE TABLET BY 30 tablet 0 08/14/2017 Active 10 MG tablet MOUTH DAILY hydrOXYzine (ATARAX) TAKE ONE TABLET BY 30 tablet 0 08/14/2017 Active 25 MG tablet MOUTH DAILY SIMPONI 50 mg/0.5 mL INJECT 1 PEN (50 1 Syringe 2 10/01/2017 Active pen MG) SUBCUTANEOUSLY injectorIndications: EVERY 28 DAYS. Inflammatory polyarthropathy (HCC), Enteropathic arthritis, Moderate chronic ulcerative colitis with complication (HCC), Acute bilateral low back pain with sciatica, sciatica laterality unspecified, Chronic low back pain with sciatica, sciatica laterality unspecified, unspecified back pain laterality azaTHIOprine Take 3 tablets (150 90 tablet 1 09/30/2018 (IMURAN) 50 mg mg total) by mouth 9 tablet daily for 180 days. baclofen (LIORESAL) Take 1 tablet (20 180 tablet 0 10/13/2018 20 MG mg total) by mouth 9 tabletIndications: 2 (two) times a day Cervical for 90 days. radiculopathy, Myalgia gabapentin Take 1 tablet (800 90 tablet 2 10/13/2018 (NEURONTIN) 800 mg mg total) by mouth 9 tablet 3 (three) times a day for 90 days. 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 Neuropathy 04/22/2017 RILEY (obstructive sleep apnea) 04/01/2017 Asthma dependent on inhaled steroids 04/01/2017 Chronic obstructive asthma with acute exacerbation 03/2017 Cough 10/01/2016 Allergic rhinitis due to pollen 10/01/2016 Inflammatory polyarthritis 08/30/2016 Fibromyalgia 08/30/2016 Encounter for monitoring azathioprine therapy 06/07/20 16 Vitamin D insufficiency 05/01/2016 Myalgia 05/01/2016 Chronic midline low back pain without sciatica 016 Ulcerative colitis with complication 04/28/2016 History of endometriosis 04/28/2016 IBS (irritable bowel syndrome) 04/28/2016 Abdominal pain 04/28/2016 Weakness 04/28/2016 Anxiety 04/28/2016 Gastroparesis 04/17/2016 Tendonitis of elbow, right 03/29/2016 Cervical radiculopathy 03/29/2016 Gastroesophageal reflux disease without esophagitis Intractable vomiting with nausea 01/22/2016 Sprain of right knee/leg 01/03/2016 Encounters Date Type Specialty Care Team Description 02/03/2019 Orders Only Internal Medicine Manda Hall MD 01/01/2019 Documentation Rheumatology Kerrie Anderson MA Records release after 12/30/2018 Immunizations Name Administration Dates Next Due FLUZONE [...] Grandfather Mahnaz Parks's esophagus Maternal Grandmother [place] Cancer Maternal Grandmother [place] Terminal li antoni cancer GERD Maternal Grandmother [place] Liver cancer Maternal Grandmother [place] Ulcerative colitis Maternal Grandmother Bates Sharla Arthritis Mother Kiarra Vision loss Mother Kiarra Psuedo-tumor cer ebri Alcohol abuse Sister Ena Depression Sister Ena Irritable bowel syndrome Sister Ena Learning disabilities Sister Ena ADD Mental illness Sister Ena PTSD, anxiety Relation Name Status Comments Brother Jeronimo Brother Dave Father Norberto Maternal Grandfather Mahnaz Maternal Grandmother [place] Mother Kiarra Sister Ena Social History Tobacco [...] Comments CERVICAL CANCER SCREENING 2001 INFLUENZA VACCINE 01/23/2020 04/17/2016, 04/13/2015 Results Not on fileafter 12/30/2018 Advance Directives For more information, please contact: [phone] Type Date 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
--- OUTSIDE RECORDS SUMMARY | 2019-12-31 21:53 | XMS REPORT | Clinical Summary ---
:1980 Author Organization [facility] Address [address] [place] [address] Care Team Providers Name Role Phone Ana [...] Not on file Results Not on fileafter 12/30/2018 Insurance Payer Benefit Plan / Subscriber ID Type Phone Address Group BLUE CROSS/BLUE BCBS PPO POS EPO xxxxxxxxxxxx PPO [phone] [id number] [place] [address]
--- OUTSIDE RECORDS SUMMARY | 2019-12-31 22:00 | XMS REPORT | Continuity of Care Document ---
:1980 Author Organization [facility] t Address [address] [place] [id number] Care Team Providers Name Role Phone Sharpless Primary Care Physician Jannie Attending Clinician Sarbjit STEWARD Attending Clinician LANDY Attending Clinician Unavailable Vinec Bill Attending Clinician NELSON Attending Clinician Unavailable DOTTY Attending Clinician Unavailable Oneyda Attending Clinician STU Attending Clinician Unavailable Katie TUCKER, G Attending Clinician Doctor Unassigned, Name Attending Clinician Unavailable Santiago Zavala Attending Clinician JITENDRA Attending Clinician Unavailable KAY Attending Clinician Unavailable Collins Elaine Attending Clinician DARIUSZ Attending Clinician Unavailable Vincent Attending Clinician KANDI Attending Clinician Unavailable ELIZABET Attending Clinician Unavailable Shreya Mcneal Attending Clinician Juventino Alcala Attending Clinician VINCENT Attending Clinician Unavailable Inez Madrigal Attending Clinician VIGNESH Attending Clinician Unavailable CARI Attending Clinician Unavailable Isabel SANDOVAL, Khushbu Attending Clinician [phone] Yair Attending Clinician JAZLYN Attending Clinician Unavailable EDUARD Attending Clinician Unavailable EDUARD Attending Clinician Unavailable CHITRA Attending Clinician Unavailable Monica ALEMAN Attending Clinician Unavailable Ravin Admitting Clinician Vince Bill Admitting Clinician Problems Condition Condition Condition Status Onset Resolution Last Treating Co mments Source Name Details Category Date Date Treatment Clinician Date POSSIBLE Diagnosis Active 2019-12-31 emoria BLOOD CLOT 12-22 21:53:00 l IN LEFT POSSIBLE 00:00: Tasneem nn LEG BLOOD CLOT 00 IN LEFT LEG Active 12/23/2019 [place] LEFT Diagnosis Active 2019-12-24 Mem oria HARDWARE 5-20 07:20:00 l PAIN-T84.8 LEFT 00:00: Stefan n 4XA/ LEFT HARDWARE 00 ANTERI PAIN-T84.8 4XA/ LEFT ANTERI Active 11/11/2019 [place] F/U Diagnosis Active 2019-10-23 Mem oria 2-26 07:26:00 l F/U 00:00: Richard 00 Active 08/19/2019 [facility] M25.511 - Diagnosis Active 2018-062019-05-07 Memoria PAIN IN 07-05 12:46:00 l RIGHT M25.511 00:01: [place] SHOULDER - PAIN IN 00 RIGHT SHOULDER Active 05/05/2019 [facility] Richard LEFT ANKLE Diagnosis Active 2018-062019-05-08 Memoria INSTABILIT 06-29 06:14:00 l Y-[id number] LEFT 00:00: Stefan n /LEFT ANK ANKLE 00 INSTABILIT Y-S93.412S /LEFT ANK Active 04/29/2019 [place] LEFT ANKLE Diagnosis Active 2018-062019-04-29 Memoria INSTABILIT 06-27 15:51:00 l Y, ANKLE LEFT 00:00: [place] SYNOVITIS ANKLE 00 INSTABILIT Y, ANKLE SYNOVITIS Active 04/27/2019 [facility] [place] NEW PT Diagnosis Active 2018-062019-08-07 Mem oria CONSULT - 0-30 12:24:00 l COLITIS NEW PT 00:00: [place] CONSULT - 00 COLITIS Active 04/22/2019 [facility] UNK Diagnosis Active 2018-062019-04-09 Mem oria 0-04 06:10:00 l UNK 00:00: Richard 00 Active 03/27/2019 [place] ABSCESS Diagnosis Active 2019-03-06 Me moria 9-13 12:26:00 l ABSCESS 00:00: Richard 00 Active 03/06/2019 [place] SPLEEN Diagnosis Active 2019-03-03 Mem oria ENLARGEMEN 01-22 11:47:00 l T SPLEEN 00:00: Richrad ENLARGEMEN 00 T Active 01/22/2019 [facility] M25.561 - Diagnosis Active 2019-06-30 Memoria PAIN IN 01-13 23:15:00 l RIGHT KNEE M25.561 00:01: Her guzman - PAIN IN 00 RIGHT KNEE Active 01/13/2019 [facility] Enteropath Enteropath Disease Active 2016-06 [place] ic ic 0-30 Methodi arthritis arthritis 00:00: st 00 Neuropathy Neuropathy Disease Active 2016-06 [place] 0-30 Methodi 00:00: st 00 RILEY RILEY Disease Active 2016-06 [place] (obstructi (obstructi 0-09 Me thodi ve sleep ve sleep 00:00: st apnea) apnea) 00 Asthma Asthma Disease Active 2016-06 [place] dependent dependent 0-09 Meth daniela on inhaled on inhaled 00:00: st steroids steroids 00 Chronic Chronic Disease Active [place] obstructiv obstructiv 4-10 Me thodi e asthma e asthma 00:00: st with acute with acute 00 exacerbati exacerbati on on Cough Cough Disease Active [place] 4-10 Methodi 00:00: st 00 Allergic Allergic Disease Active [place] rhinitis rhinitis 4-10 Method i due to due to 00:00: st pollen pollen 00 Inflammato Inflammato Disease Active [place] ry ry 3-09 Methodi polyarthri polyarthri 00:00: st tis tis 00 Fibromyalg Fibromyalg Disease Active [place] ia ia 3-09 Methodi 00:00: st 00 Encounter Encounter Disease Active 2015-06 Jolanta stobora for for 2-15 Methodi monitoring monitoring 00:00: st azathiopri azathiopri 00 ne therapy ne therapy Vitamin D Vitamin D Disease Active 2015-06 Jolanta schuler insufficie insufficie 1-08 Me thodi ncy ncy 00:00: st 00 Myalgia Myalgia Disease Active 2015-06 Steve 1-08 Methodi 00:00: st 00 Chronic Chronic Disease Active 2015-06 [place] midline midline 1-08 [facility] low back low back 00:00: st pain pain 00 without without sciatica sciatica Ulcerative Ulcerative Disease Active 2015-06 [place] colitis colitis 1-05 Methodi with with 00:00: st complicati complicati 00 on on History of History of Disease Active 2015-06 [place] endometrio endometrio 1-05 Me thodi sis sis 00:00: st 00 IBS IBS Disease Active 2015-06 [place] (irritable (irritable 1-05 Me thodi bowel bowel 00:00: st syndrome) syndrome) 00 Abdominal Abdominal Disease Active 2015-06 Jolanta ston pain pain 105 Methodi 00:00: st 00 Weakness Weakness Disease Active 2015-06 [place] 05 Methodi 00:00: st 00 Anxiety Anxiety Disease Active 2015-06 [place] 105 Methodi 00:00: st 00 Gastropare Gastropare Disease Active 2015-06 [place] sis sis 0-25 Methodi 00:00: st 00 Tendonitis Tendonitis Disease Active 2015-06 [place] of elbow, of elbow, 0-06 Meth daniela right right 00:00: st 00 Cervical Cervical Disease Active 2015-06 [place] radiculopa radiculopa 0-06 Me thodi thy thy 00:00: st 00 Gastroesop Gastroesop Disease Active [place] hageal hageal 8-31 Methodi reflux reflux 00:00: st disease disease 00 without without esophagiti esophagiti s s Intractabl Intractabl Disease Active [place] e vomiting e vomiting 7-31 Me thodi with with 00:00: st nausea nausea 00 Sprain of Sprain of Disease Active Jolanta ston right right 7-12 [facility]i knee/leg knee/leg 00:00: st 00 APNEA Diagnosis Active 2018-08-23 Mem oria 06-24 12:18:00 l APNEA 00:00: [place] 00 Active 06/24/2000 [facility] History of History of Problem Resolve Univers asthma asthma d ity of [place] [facility] ans History of History of Problem Resolve Univers depression depression d it y of [place] [facility] History of History of Problem Resolve Univers pancreatit pancreatit d it y of is is [place] [facility] ans History of History of Problem Resolve Univers Cervical Cervical d [place] radicular [place]icular [place] pain pain [place] ans History of History of Problem Resolve Univers Gastropare Gastropare d it y of sis sis [place] [facility] ans History of History of Problem Resolve Univers Medial Medial d ity of meniscus meniscus [place] tear tear Physici ans Other Other Problem Active Univers synovitis synovitis ity of and and [place] tenosynovi tenosynovi Ph ysici tis, left tis, left ans ankle and ankle and foot foot History of History of Problem Resolve Univers peptic peptic d ity of ulcer ulcer [place] [facility] ans Injury, Injury, Problem Active Univers foot, foot, ity of left, left, [place] initial initial Physici encounter encounter ans Endometrio Endometrio Problem Active U nivers sis sis ity of [place] [facility] ans Vaginal Vaginal Problem Active Univers candidiasi candidiasi it y of s s [place] [facility] ans Abnormal Abnormal Problem Active Unive rs urinalysis urinalysis it y of [place] [facility] ans Encounter Encounter Problem Active Uni vers for for [place] of [place] golimumab golimumab Phys ici therapy therapy ans Encounter Encounter Problem Active Uni vers for long for long ity of term term [place] current current Physici azathiopri azathiopri an s ne therapy ne therapy Chronic Chronic Problem Active Univers left left ity of sacroiliac sacroiliac [place] pain pain Phys[place] ans Chronic Chronic Problem Active Univers left left ity of shoulder shoulder [place] pain pain Physici ans On On Problem Active Univers corticoste corticoste it y of roid roid [place] therapy therapy Physici ans Asthma Asthma Problem Active Univers ity of [place] [facility] Chronic Chronic Problem Active Univers neck pain neck pain ity of [place] [facility] Depression Depression Problem Active U nivers ity of [place] [facility] Dyspnea Dyspnea Problem Active Univers ity of [place] [facility] ans History of History of Problem Active U nivers rheumatoid rheumatoid it y of arthritis arthritis [place] Morbid Morbid Problem Active Univers obesity obesity ity of [place] [facility] ans PCOS PCOS Problem Active Univers (polycysti (polycysti it y of c ovarian c ovarian [place] syndrome) syndrome) Phys ici ans Rheumatoid Rheumatoid Problem Active U nivers arthritis arthritis ity of [place] Physici ans RILEY RILEY Problem Active Univers (obstructi (obstructi it y of ve sleep ve sleep [place] apnea) apnea) Physici ans Palpitatio Palpitatio Problem Active U nivers ns ns ity of [place] [facility] ans Chest pain Chest pain Problem Active U nivers at rest at rest ity of [place] [facility] ans Chest Chest Problem Active Univers pain, pain, ity of atypical atypical [place] [facility] ans Recurrent Recurrent Problem Active Uni vers UTI UTI ity of (urinary (urinary [place] tract tract Physici infection) infection) an s Anxiety Anxiety Problem Active Univers ity of [place] [facility] ans Hypertrigl Hypertrigl Problem Active U nivers yceridemia yceridemia it y of [place] [facility] ans Spleen Spleen Problem Active Univers enlargemen enlargemen it y of t t [place] [facility] ans Myofascial Myofascial Problem Active U nivers pain pain ity of syndrome syndrome [place] [facility] ans Pain of Pain of Problem Active Univers right right ity of clavicle clavicle [place] [facility] ans Osteoarthr Osteoarthr Problem Active U nivers itis itis ity of [place] [facility]ici ans Arthralgia Arthralgia Problem Active U nivers of right of right ity of knee knee [place] [facility]ici ans Sprain of Sprain of Problem Active Uni vers calcaneofi calcaneofi it y of bular bular [place] ligament ligament Physic i of left of left ans ankle, ankle, sequela sequela Urethritis Urethritis Problem Active U nivers , , ity of nonspecifi nonspecifi [place] c c Physici ans Drug Drug Problem Active Univers testing, testing, ity of pre-employ pre[place]employ [place] ment ment Physici ans Tendinitis Tendinitis Problem Active U nivers of left of left ity of pectoralis pectoralis [place] major major Physici ans Tendinitis Tendinitis Problem Active U nivers of right of right ity of [place] tus tendon tus tendon Ph ysici ans Hypermobil Hypermobil Problem Active U nivers ity ity ity of arthralgia arthralgia [place] Costochond Costochond Problem Active U nivers ritis ritis ity of [place] [facility] ans Fibromyalg Fibromyalg Problem Active U nivers ia ia ity of [place] [facility] ans Chronic Chronic Problem Active Univers right right ity of shoulder shoulder [place] pain pain Physici ans Sprain of Sprain of Problem Active Uni vers calcaneofi calcaneofi it y of bular bular [place] ligament ligament Physic i of left of left ans ankle, ankle, subsequent subsequent encounter encounter Abdominal Abdominal Problem Active Uni vers pain pain ity of [place] [facility] ans Diarrhea Diarrhea Problem Active Unive rs ity of [place] [facility] ans Chronic Chronic Problem Active Univers GERD GERD ity of [place] [facility] ans Colitis Colitis Problem Active Univers ity of [place] [facility] ans Ulcerative Ulcerative Problem Active U nivers colitis colitis ity of [place] [facility] ans Humerus Humerus Problem Active Univers lesion, lesion, ity of right right [place] [facility] ans Tear of Tear of Problem Active Univers right right ity of [place] tus tus Physici tendon, tendon, ans initial initial encounter encounter Right Right Problem Active Univers supraspina supraspina it y of tus tus [place] tendinitis tendinitis Ph ysici ans Facial Facial Problem Active Univers rash rash ity of [place] [facility] ans Ankle Ankle Problem Active Univers pain, left pain, left it y of [place] [facility] ans Headache Headache Problem Active Unive rs ity of [place] [facility] ans Back Back Problem Active Univers muscle muscle ity of spasm spasm [place] [facility] ans Lumbar Lumbar Problem Active Univers facet facet ity of arthropath [place]ath [place] y [place] Physici ans Lumbar Lumbar Problem Active Univers pain pain ity of [place] [facility] ans PTSD PTSD Problem Active Univers (post-trau (post-trau it y of [facility] stress stress Physici disorder) disorder) ans Other Other Problem Active Univers synovitis synovitis ity of and and [place] tenosynovi tenosynovi Ph ysici tis, right tis, right an s ankle and ankle and foot foot Left leg Left leg Problem Active Unive rs swelling swelling ity of [place] Physici ans Acute Problem Resolve 2019-12-26 Bunny brianna ulcerative d 22:21:49 l colitis Acute [place] (disorder) ulcerative colitis (disorder) Resolved Problem 12/26/2019 [facility], SANTOS Ramos,[facility], Steve Harp [place] Asthma Problem Resolve 2019-12-26 Bunny brianna (disorder) d 22:21:49 l Asthma Richard (disorder) Resolved Problem 12/26/2019 [facility], SANT[facility] Ramos,[facility], Steve Harp H [place] Atelectasi Problem Resolve 2019-12-26 Memoria s d 22:21:49 l (disorder) Stefan n Atelectasi s (disorder) Resolved Problem 12/26/2019 [facility], OPICamilo Ramos, [place], [facility] [place],M H [place] Attention Problem Resolve 2019-12-26 M emoria deficit d 22:21:49 l hyperactiv Stefan n ity Attention disorder deficit (disorder) hyperactiv ity disorder (disorder) Resolved Problem 12/26/2019 [facility], [place] Richard,[facility], [facility] [place], H [place] Parks's Problem Resolve 2019-12-26 M emoria esophagus d 22:21:49 l (disorder) Stefan n Parks's esophagus (disorder) Resolved Problem 12/26/2019 [facility], SANTOS Ramos,[facility], [facility] [place], H [place] Bile-induc Problem Resolve 2019-12-26 Memoria ed d 22:21:49 l gastritis [place] (disorder) Bile-induc ed gastritis (disorder) Resolved Problem 12/26/2019 [facility], SANTOS Ramos,[facility], [facility] [place], H [place] Diarrhea Problem Resolve 2019-12-26 Me moria (finding) d 22:21:49 l Diarrhea Stefan n (finding) Resolved Problem 12/26/2019 [facility], SANTOS Ramos,[facility], [facility] [place], H [place] Eczema Problem Resolve 2019-12-26 Bunny brianna (disorder) d 22:21:49 l Eczema [place] (disorder) Resolved Problem 12/26/2019 [facility], OPICamilo Ramos, [place], [facility] [place], H [place] Endometrio Problem Resolve 2019-12-26 Memoria sis d 22:21:49 l (disorder) Stefan n Endometrio sis (disorder) Resolved Problem 12/26/2019 [facility], SANTOS Ramos, [place], [facility] [place],M H [place] Gastroesop Problem Resolve 2019-12-26 Memoria hageal d 22:21:49 l reflux [place] disease Gastroesop (disorder) hageal reflux disease (disorder) Resolved Problem 12/26/2019 [facility], SANTOS Ramos,[facility], [facility] [place], H [place] Hemorrhoid Problem Resolve 2019-12-26 Memoria s d 22:21:49 l (disorder) Stefan n Hemorrhoid s (disorder) Resolved Problem 12/26/2019 [facility], SANTOS Ramos,[facility], [facility] [place],M H [place] Hypermobil Problem Resolve 2019-12-26 Memoria ity d 22:21:49 l syndrome [place] (disorder) Hypermobil ity syndrome (disorder) Resolved Problem 12/26/2019 [facility], SANTOS Ramos,[facility], [facility] [place], H [place] Mixed Problem Resolve 2019-12-26 Bunny brianna anxiety d 22:21:49 l and Mixed [place] depressive anxiety disorder and (disorder) depressive disorder (disorder) Resolved Problem 12/26/2019 [facility], SANTOS Ramos,[facility], [facility] [place], H [place] Paralytic Problem Resolve 2019-12-26 M emoria ileus d 22:21:49 l (disorder) Stefan n Paralytic ileus (disorder) Resolved Problem 12/26/2019 [facility], SANTOS Ramos,[facility], [facility] [place], H [place] Polycystic Problem Resolve 2019-12-26 Memoria ovaries d 22:21:49 l (disorder) Stefan n Polycystic ovaries (disorder) Resolved Problem 12/26/2019 [facility], SANTOS Ramos,[facility], [facility] [place], H [place] Sleep Problem Resolve 2019-12-26 Bunny brianna apnea d 22:21:49 l (finding) Sleep Stefan n apnea (finding) Resolved Problem 12/26/2019 [facility], SANTOS Ramos,[facility], [facility] [place],M H [place] Splenomega Problem Resolve 2019-12-26 Memoria ly d 22:21:49 l (disorder) Stefan n Splenomega ly (disorder) Resolved Problem 12/26/2019 [facility], SANTOS Ramos,[facility], [facility] [place],M H [place] Urinary Problem Resolve 2019-12-26 Mem oria tract d 22:21:49 l infectious Urinary Her guzman disease tract (disorder) infectious disease (disorder) Resolved Problem 12/26/2019 [facility], SANTOS Ramos,[facility], [facility] [place],M H [place] Arthritis Problem Active 2019-12-26 Me moria (disorder) 22:21:49 l [place] Arthritis (disorder) Active Problem 12/26/2019 [facility], SANTOS Ramso,[facility], [facility] [place],M H [place] Morbid Problem Active 2019-12-26 Memor ia obesity 22:21:49 l (disorder) Morbid Herm judy obesity (disorder) Active Problem 12/26/2019 [facility], SANTOS Ramos,[facility], [facility] [place],M H [place] Colitis Problem Active 2019-12-26 Bunny brianna (disorder) 22:21:49 l Colitis Richard (disorder) Active Problem 12/26/2019 Medical [facility], [place] Cellulitis Problem 2019-0 2019-03-08 2019-03-08 Memoria , 03-06 22:10:50 22:10:50 l unspecifie 17:00: Stefan n d Cellulitis 00 , unspecifie d 03/06/2019 03/08/2019 [facility] Allergies, Adverse Reactions, Alerts Allergy Allergy Status Severity Reaction(s) Onset Inactive Treating Comm ents Source Name Type Date Date Clinician Adhesive Propensi Active Itching 2015-06 Skin [place] ty to 06-30 turns red Methodi adverse 00:00: st reaction 00 s to drug Cephalex Propensi Active Itching 2015-06 [place] in ty to 06-30 Methodi adverse 00:00: st reaction 00 s to drug Tolmetin Propensi Active Swelling 2015-06 Face and [place] ty to 06-30 tongue Methodi adverse 00:00: st reaction 00 s to drug Adhesive Propensi Active Itching Skin [place] T[place]-Trinity ty to 01-22 turns red Metho di icones adverse 00:00: st reaction 00 s to drug Ciproflo Propensi Active Tachycard Jolanta ston xacin ty to 01-21 ia Methodi adverse 00:00: st reaction 00 s to drug Levoflox Propensi Active Palpitations Tachyca rd Steve acin ty to 01-21 ia Methodi adverse 00:00: st reaction 00 s to drug Tapentad Propensi Active Itching Skin [place] ol ty to 01-14 turns red Methodi adverse 00:00: st reaction 00 s to drug Duloxeti Propensi Active 2010-06 Serotonin Jolanta ston ne Hcl ty to 07-14 syndrome Methodi adverse 00:00: st reaction 00 s to drug Ciproflo Allergy Active Univers xacin to drug ity of HCl TABS (finding [place] ) Physici ans Keflex Allergy Active Univers TABS to drug ity of ([facility] ) Physici ans Levaquin Allergy Active Univers TABS to drug ity of ([facility] ) Physici ans CeleBREX Allergy Active Anaphylaxis Un marko CAPS to drug ity of ([facility] ) Physici ans Sulfa Allergy Active Anaphylaxis Univ ers Drugs to drug ity of ([facility] ) Physici ans Cipro Cipro Active Severe Memoria l Richard Keflex Keflex Active Severe Memoria l [place] Levaquin Levaquin Active Severe Memori a l [place] Adhesive Adhesive Active Severe Memori a l Richard Tape Tape Active Severe Memoria l Richard sulfaSAL sulfaSAL Active Severe Memori a Azine Azine l [place] clindamy clindamy Active Severe Memori a mari mari l [place] Augmenti Augmenti Active Severe Memori a n n l Richard CeleBREX CeleBREX Active Memori a l [place] Family History Family Member Diagnosis Comments Start Date Stop Date Source natural son Family history of Univer sity of Anxiety [place] [facility] ns natural son Family history of Univer sity of depression [place] Mother Family history of Univers ity of hypothyroidism [place] Phys icians Mother Family history of Univers ity of pulmonary embolism [place] [facility] Mother Family history of Univers ity of gout [place] ns Mother Family history of Univers ity of osteoarthritis [place] [facility] icians Mother Family history of Univers ity of osteoporosis [place]ic ians Father Family history of Univers ity of hypertension [place] Physic ians Father Family history of Univers ity of alcoholism [place] ns Grandmother Family history of Univer sity of osteoarthritis [place] [facility] Grandmother Family history of Univer sity of osteoporosis [place] Physic ians Natural brother Alcohol abuse [place] Mandaeism Natural brother Depression [place] Mandaeism Natural brother Irritable bowel [place] syndrome Mandaeism Natural brother Learning disabilities [place] Mandaeism Natural brother Mental illness [place] Mandaeism Natural father Alcohol abuse [place] Mandaeism Natural father Hypertension [place] Mandaeism Maternal Diabetes [place] grandfather Mandaeism Maternal Heart disease [place] grandfather Mandaeism Maternal Hypertension [place] grandfather Mandaeism Maternal Parks's esophagus [place] grandmother Mandaeism Maternal Cancer [place] grandmother Mandaeism Maternal GERD [place] grandmother Mandaeism Maternal Liver cancer [place] grandmother Mandaeism Maternal Ulcerative colitis [place] grandmother Mandaeism Natural mother Arthritis [place] Mandaeism Natural mother Vision loss [place] Mandaeism Natural sister Alcohol abuse [place] Mandaeism Natural sister Depression [place] Mandaeism Natural sister Irritable bowel [place] syndrome Mandaeism Natural sister Learning disabilities [place] Mandaeism Natural sister Mental illness [place] Mandaeism Social History Social Habit Start Date Stop Date Quantity Comments Source Sex Assigned At [facility] ethodist Social History 2019-01-14 2019-01-14 [facility] 04:59:00 04:59:00 Alcohol intake 2017-04-01 2017-04-01 Current drinker [place] Mandaeism 00:00:00 00:00:00 of alcohol (finding) Alcohol Comment 2016-05-10 2016-05-10 On occasion [facility] 00:00:00 00:00:00 Smoking Status Start Date Stop Date Source Social History [facility] Medications Ordered Filled Start Stop Current Ordering Indication Dosage Frequency Signature Comments Components Source Medication Medication Date Date Medication? Clinician (SIG) Name Name Burke No Notes: Memoria 12-24 Same as: l 02:00: Burke Ramos 00 Acetaminoph Yes 1 tab, PO, Memoria en 300 MG / 12-23 Q6H, PRN l Codeine 20:48: Pain, X 3 Tasneem nn Phosphate 00 day, # 12 30 MG Oral tab, 0 Tablet Refill(s), [[facility]ol [facility] 149, 175.26, cm, 12/23/19 22:50:00 CDT, Height, 150.057, kg, 12/23/19 22:50:00 CDT, Weight baclofen 5 2019-0 Yes 5 mg = 1 Mem oria mg oral 7-02 tab, PO, l tablet 20:48: TID, # 21 Stefan n 00 tab, 0 Refill(s), Pharmacy: [facility] 149, 175.26, cm, 12/23/19 22:50:00 CDT, Height, 150.057, kg, 12/23/19 22:50:00 CDT, Weight Eliquis 0 No Notes: Memoria 12-23 Same as: l 19:20: Eliquis [place] 00 Acetaminoph Yes 100.4 F, M emoria en 325 MG -02 0 l Oral Tablet 19:19: Refill(s) H erm tramadol No 50 mg = 1 Bunny brianna hydrochlori 7-02 tab, PO, l de 50 MG 19:19: Q6H, PRN Tasneem nn Oral Tablet 00 Pain, X 10 day, # 40 tab, 0 Refill(s), Pharmacy: [facility] 149, 175.26, cm, 12/23/19 22:50:00 CDT, Height, 150.057, kg, 12/23/19 22:50:00 CDT, Weight {74 2020-0 Yes 5 mg = 1 Memoria (apixaban 5 7-02 tab, PO, l MG Oral 19:19: BID, as Richard Tablet 00 directed [Eliquis]) on package } Pack labeling, [Eliquis # 60 tab, 30-Day 0 Starter Refill(s), Pack] Pharmacy: [facility] 149, 175.26, cm, 12/23/19 22:50:00 CDT, Height, 150.057, kg, 12/23/19 22:50:00 CDT, Weight Lovenox 2019-0 No Notes: Memoria 12-23 Nurse to l 15:00: ensure Richard documentat ion of patient education per anticoagul ation policy. (Same as: Lovenox) Lovenox 2020-0 No Notes: Memoria - Nurse to l 14:00: ensure Richard 00 documentat ion of patient education per anticoagul ation policy. (Same as: Lovenox) Dexilant 2019-0 No 60 mg, 1 Memor ia - cap, l 14:00: Route: PO, [place] 00 Drug form: DRC, Daily, Dosing Weight 150.057, kg, Start date: 12/24/19 9:00:00 CDT, Duration: 30 day, Stop date: 01/22/20 9:00:00 CDT Advair 2019-0 No 1 Memoria Diskus 500 12-23 inhalation l mcg-50 mcg 14:00: , Route: Her guzman inhalation 00 INHALATION powder , Drug Form: AERO, Dosing Weight 150.057, kg, BID, Start date: 12/24/19 9:00:00 CDT, Duration: 30 day, Stop date: 01/22/20 17:00:00 CDT gabapentin 2019-0 No Notes: Memor ia 800 MG Oral 12-23 (Same as: l Tablet 14:00: Neurontin) Tasneem nn [Neurontin] 00 Lialda No 1.2 gm, 1 Memori a - tab, l 14:00: Route: PO, [place] 00 Drug form: ECTAB, Daily, Dosing Weight 150.057, kg, Start date: 12/24/19 9:00:00 CDT, Duration: 30 day, Stop date: 01/22/20 9:00:00 CDT Propranolol 2019-0 No Notes: Bunny brianna 12-23 Give with l 14:00: food. Richard 00 (Same as: Inderal) Trintellix 2019-0 No 10 mg, 1 Mem oria 7-02 tab, l 14:00: Route: PO, Richard 00 Drug form: TAB, Daily, Dosing Weight 150.057, kg, Start date: 12/24/19 9:00:00 CDT, Duration: 30 day, Stop date: 01/22/20 9:00:00 CDT Protonix 2019-0 No Notes: Memoria 7-02 Tablet l 14:00: should not Richard 00 be chewed or crushed. (Same as: Protonix) Trazodone Yes 100 mg = 1 Me moria Hydrochlori -02 tab, PO, l de 100 MG 13:35: Bedtime, # He rmann Oral Tablet 00 30 tab, 1 Refill(s) Nitrofurant No 100 mg = 1 Memoria oin 100 MG 12-23 cap, PO, l Oral 13:35: BID, # 14 Richard Capsule 00 cap, 0 [Macrobid] Refill(s) Albuterol No Notes: SEE Me moria 0.83 MG/ML 12-23 RT l Inhalant 13:00: DOCUMENTAT Her guzman Solution 00 ION (Same as: Proventil) Baclofen No Notes: Memoria 12-23 (Same As: l 13:00: Lioresal) Richard 00 Pulmicort No Notes: Memori a Respules 12-23 (Same As: l 13:00: Pulmicort) Richard Trazodone No Notes: Memori a Hydrochlori 12-23 (Same As: l de 100 MG 07:00: Desyrel) Herm judy Oral Tablet 00 Albuterol No Notes: Memori a 0.833 MG/ML 12-23 (Same as: l 02:44: Duoneb) Richard Ipratropium 00 [place] 0.167 MG/ML Inhalant Solution [DuoNeb] Acetaminoph No Notes: Bunny brianna en 325 MG / 12-23 (Same as: l Hydrocodone 02:34: [place] Tasneem nn Bitartrate 00 325/5) Do 5 MG Oral not exceed Tablet 4gm/day of [[place] acetaminop 5/325] hen. Morphine No Notes: Memoria 12-23 (Same l 02:16: as:MORPhin [place] 00 e Sulfate) Zofran No Notes: Memoria 12-23 (Same as: l 02:16: Zofran) [place] 00 MEDICATION WASTE Product Size: 4 mg Product Wasted: ___ mg Dextrose No 12.5 gm, Memor ia 50% Syringe 12-23 25 mL, l (D50W) 01:55: Route: Richard 00 IVP, Drug Form: INJ, Dosing Weight 153.8, kg, PRN, PRN Blood Glucose Results, Start date: 12/23/19 20:55:00 CDT, Duration: 30 day, Stop date: 01/22/20 20:54:00 CDT, 0 Glucagon 2019- No 1 mg, Memoria 12-23 Route: IM, l 01:55: Drug form: PDR/INJ, PRN, Dosing Weight 153.8, kg, PRN Blood Glucose Results, Start date: 12/23/19 20:55:00 CDT, Duration: 30 day, Stop date: 01/22/20 20:54:00 CDT, 0 Ondansetron No Notes: Bunny brianna 12-23 (Same as: l 01:55: Zofran) MEDICATION WASTE Product Size: 4 mg Product Wasted: ___ mg Acetaminoph No Notes: Do M emoria en 12-23 not exceed l 01:55: 4 gm/day. (Same as: Tylenol) Lovenox 0 No Notes: Memoria 12-23 Nurse to l 01:31: ensure documentat ion of patient education per anticoagul ation policy. (Same as: Lovenox) Omnipaque 0 No Notes: Memori a 350 12-23 (same l injectable 01:00: as:Omnipaq H ermann solution 00 ue 350). WASTE: F/P - Black; E - Municipal Trash Bin Saline No Notes: Memoria Flush 0.9% 12-22 (Same as: l 22:52: BD Posiflush) Hydralazine No Notes: Bunny brianna 6-05 (Same as: l 14:58: Apresoline ) Push over 5 minutes Labetalol 0 No 10 mg, 2 Bunny brianna 6-05 mL, Route: l 14:58: IVP, Drug form: INJ, Q5Min, Dosing Weight 155, kg, PRN Elevated BP, Start date: 11/27/19 9:58:00 CDT, Duration: 5 doses or times, Stop date: Limited # of times, 0 Oxycodone 2019-0 No Notes: Memori a Hydrochlori 6-05 (Same as: l de 5 MG 14:58: Roxicodone Herm judy Oral Tablet ) Fentanyl No Notes: Memoria 6-05 (Same as: l 14:58: Sublimaze) Preservat luzmaria free. Oxycodone No Notes: Memori a 6-05 (Same as: l 14:58: 'Roxicodon e) Hydromorpho 2019- No Notes: Bunny brianna ne 6-05 Same as: l 14:58: Dilaudid Flumazenil No Notes: Memor ia 6-05 (Same as: l 14:58: Romazicon) Naloxone No Notes: Memoria 6-05 Same as l 14:58: Narcan Atropine No 0.2 mg, 2 Bunny brianna 6-05 mL, Route: l 14:58: IVP, Drug form: INJ, Q5Min, Dosing Weight 155, kg, PRN Other -See Comment, as needed; for symptomati c pulse rate < 80% of mean 50 BPM, Start date: 11/27/19 9:58:00 CDT, Duration: 30 day, Stop date: 12/27/19 9:57:00 CDT, 0 Diphenhydra No Notes: Bunny brianna mine 6-05 (Same as: l 14:58: Benadryl) Racepinephr No Notes: Bunny brianna ine 6-05 (racepinep l 14:58: hrine *2.25% inh 0.5ml SOLN) (Same as:S2) Meperidine No Notes: Memor ia 6-05 (Same as: l 14:58: Demerol) "Use Precaution in Elderly, Seizure disorders, and Renal impairment " Ondansetron No Notes: Bunny brianna 6-05 (Same as: l 14:58: Zofran) MEDICATION WASTE Product Size: 4 mg Product Wasted: _0__ mg Dexamethaso 2019-0 No Notes: Bunny brianna ne 6-05 Concentrat l 14:58: ion: Richadr 00 4mg/ml Promethazin No Notes: Do M emoria e - not give l 14:58: IV push. Richard 00 (Same as: Phenergan) 72 HR Yes Notes: Memoria Scopolamine - Change l 0.0139 14:58: patch [place] MG/HR 00 every 72 Transdermal hours Patch (Same as: Transderm- Scop) Insulin No Notes: Memoria Lispro 11-26 (Same as: l 14:58: Humalog) Roll in palms of hands gently; Do not shake vigorously . WASTE: F/P - Black; E - Municipal Trash Bin Stable for 28 days at room temperatur e. Expires in days from ____Date ondansetron No Route: IV, Memoria (ANES) 11-26 Drug form: l 14:33: INJ, ONCE, Stop date: 11/27/19 9:33:00 CDT fentaNYL No Route: IV, Mem oria (ANES) 11-26 Drug form: l 14:12: INJ, ONCE, Stop date: 11/27/19 9:12:00 CDT propofol No Route: IV, Mem oria (ANES) 11-26 Drug form: l 14:12: INJ, ONCE, Stop date: 11/27/19 9:12:00 CDT lidocaine No Route: IV, Me moria (ANES) 11-26 Drug form: l 14:12: INJ, ONCE, Stop date: 11/27/19 9:12:00 CDT succinylcho No Route: IV, Memoria line (ANES) 11-26 Drug form: l 14:12: INJ, ONCE, Stop date: 11/27/19 9:12:00 CDT dexamethaso No Route: IV, Memoria ne (ANES) 11-26 Drug form: l 13:52: INJ, ONCE, Stop date: 11/27/19 8:52:00 CDT vancomycin 2020-0 No Route: IV, M emoria (ANES) 1500 6-05 Drug form: l mg 13:26: INJ, Start Ricahrd 00 date: 11/27/19 8:26:00 CDT, Stop date: 11/27/19 9:26:00 CDT Lactated 2019-0 No Route: IV, Mem oria Ringers 6-05 Total l Injection 13:06: Volume: Tasneem nn IV (ANES) 00 1,000, 1000 mL Start date: 11/27/19 8:06:00 CDT, Stop date: 11/27/19 9:06:00 CDT Ondansetron 2019-0 Yes 4 mg = 1 Me moria 4 MG Oral 6-05 tab, PO, l Tablet 12:42: Q8H, PRN [place] [Zofran] 00 as needed for nausea/vom iting, # 20 tab, 1 Refill(s), Pharmacy: [place] [id number] Acetaminoph 2019-0 Yes 1 tab, PO, Memoria en 325 MG / 6-05 Q4H, PRN l Hydrocodone 12:42: Pain, X 6 H ermann Bitartrate 00 day, # 28 10 MG Oral tab, 0 Tablet Refill(s), Pharmacy: [place] [id number] ibuprofen 2019-0 No 600 mg = 1 Me moria 600 mg oral 6-05 tab, PO, l tablet 12:42: TID, PRN Richard 00 pain, # 90 tab, 0 Refill(s), Pharmacy: [place] [id number] Lidocaine 2019-0 No Notes: Memori a Hydrochlori -05 Preservati l de 10 MG/ML 12:00: ve free. He rmann Injectable 00 (Same as: Solution Xylocaine MPF) Calcium 2020-0 No 1,000 mL, Memor ia Chloride 6-05 Rate: 75 l 0.0014 11:49: ml/hr, Richard MEQ/ML / 00 Infuse Potassium over: 13.3 Chloride hr, Route: 0.004 IV, Dosing MEQ/ML / Weight 150 Sodium kg, Total Chloride Volume: 0.103 1,000, MEQ/ML / Start Sodium date: Lactate 11/27/19 0.028 6:49:00 MEQ/ML CDT, Injectable Duration: Solution 30 day, Stop date: 12/27/19 6:48:00 CDT, 2.75, m2, 0 Acetaminoph No Notes: Max Memoria en 6-05 acetaminop l 11:49: hen 4000 Richard 00 mg/day (4 gm/day). (Same as: Tylenol Extra Strength) gabapentin No Notes: Memor ia 6-05 (Same as: l 11:49: Neurontin) Richard Hydralazine No Notes: Bunny brianna 6-05 (Same as: l 11:49: Apresoline Richard 00 ) Push over 5 minutes 72 HR No Notes: Memoria Scopolamine 6-05 Change l 0.0139 11:49: patch [place] MG/HR 00 every 72 Transdermal hours Patch (Same as: Transderm- Scop) Insulin No Notes: Memoria Lispro 6-05 (Same as: l 11:49: Humalog) [place] 00 Roll in palms of hands gently; Do not shake vigorously . WASTE: F/P - Black; E - Municipal Trash Bin Stable for 28 days at room temperatur e. Expires in days from ____Date ceFAZolin + No Notes: Bunny brianna sterile 6-05 (Same As: l water 20 mL 11:00: Ancef, Herm judy 00 Kefzol) MEDICATION WASTE Product Size: 1000 mg Product Wasted: ___ mg Lactated No 1,000 mL, Bunny brianna Ringers 6-05 Rate: KVO l Injection 11:00: rate, [place] IV 1,000 mL 00 Route: IV, Dosing Weight 150 kg, Total Volume: 1,000, Start date: 11/27/19 6:00:00 CDT, Duration: 30 day, Stop date: 12/27/19 5:59:00 CDT, 2.75, m2, 0 methylPREDN methylPREDN 2019-0 Yes HOLGER STU TAKE Univers ISolone 4 ISolone 4 3-02 M.D. DIRECTED i ty of MG Oral MG Oral 00:00: [place] Tablet Tablet 00 Physici Therapy Therapy ans Pack Pack Mesalamine Mesalamine Yes KOBE 2 Q0.5D TAKE 2 Univers 400 MG Oral 400 MG Oral 2-26 OBONYANO CAPSULE ity of Capsule Capsule 00:00: LUMBER STRAIGHTENED Twice [place] Delayed Delayed 00 daily Physici Release Release TDD:1.6gm ans Enteragam Yes Me curtis Ashraf 2-14 See l 17:29: Instructandres Richard 00 ns, 1 packet twice a day x2 weeks, # 1 kit, Refill(s) 0, Pharmacy: [facility] Yes ISAI TAKE 2 Uni vers 320.5-30-16 320.5-30-16 1-20 KAY CAPSULES ity of MG Oral MG Oral 00:00: LUMBER STRAIGHTENED BY MOUTH Tim as Capsule Capsule 00 EVERY 4 TO Phy sici 6 HOURS ans NEEDED FOR PAIN Pregabalin Pregabalin 2018-06 Yes ISAI Q0.3333D TAKE 1 Univers 75 MG Oral 75 MG Oral 1-26 KAY CAPSULE 3 ity of Capsule Capsule 00:00: LUMBER STRAIGHTENED TIMES [place] 00 DAILY. Physici ans Oxycodone 2018-06 No 5 mg, 1 Memor ia Hydrochlori 1-15 tab, l de 5 MG 20:00: Route: PO, Herm judy Oral Tablet 00 POST OP, Dosing Weight 152.818, kg, Start date: 05/08/19 14:00:00 MAKEUP SALES CONSULTANT, Duration: 30 day, Stop date: 06/07/19 13:59:00 MAKEUP SALES CONSULTANT Ketorolac 2018-06 No 30 mg, Memori a 1-15 Route: IV, l 18:10: ONCE, Dosing Weight 152.818, kg, Start date: 05/08/19 12:10:00 MAKEUP SALES CONSULTANT, Stop date: 05/08/19 12:10:00 MAKEUP SALES CONSULTANT ondansetron 2018-06 No Route: IV, Memoria (ANES) 1-15 Drug form: l 17:53: INJ, ONCE, Stop date: 05/08/19 11:53:00 MAKEUP SALES CONSULTANT glycopyrrol 2018-06 No Route: IV, Memoria ate (ANES) 1-15 Drug form: l 17:53: INJ, ONCE, Stop date: 05/08/19 11:53:00 MAKEUP SALES CONSULTANT neostigmine 2018-06 No Route: IV, Memoria (ANES) 1-15 Drug form: l 17:53: INJ, ONCE, Stop date: 05/08/19 11:53:00 MAKEUP SALES CONSULTANT Morphine 2018-06 No 2 mg, 1 Memori a 1-15 mL, Route: l 17:22: IVP, Drug form: SOLN, Q5Min, Dosing Weight 152.818, kg, PRN Pain Score 4-6, Start date: 05/08/19 11:22:00 MAKEUP SALES CONSULTANT, Duration: 5 doses or times, Stop date: Limited # of times, 0 Fentanyl 2018-06 No Notes: Memoria 1-15 (Same as: l 17:22: Sublimaze) Preservat luzmaria free. Oxycodone 2018-06 No Notes: Memori a 1-15 (Same as: l 17:22: 'Roxicodon e) Hydromorpho 2018-06 No Notes: Bunny brianna ne 1-15 Same as: l 17:22: Dilaudid Flumazenil 2018-06 No Notes: Memor ia 1-15 (Same as: l 17:22: Romazicon) Naloxone 2018-06 No Notes: Memoria 1-15 Same as l 17:22: Narcan Ondansetron 2018-06 No Notes: Bunny brianna 1-15 (Same as: l 17:22: Zofran) MEDICATION WASTE Product Size: 4 mg Product Wasted: ___ mg hydromorpho 2018-06 No Route: IV, Memoria ne (ANES) 1-15 Drug form: l 16:38: INJ, ONCE, Stop date: 05/08/19 10:38:00 MAKEUP SALES CONSULTANT lidocaine 2018-06 No Route: IV, Me moria (ANES) 1-15 Drug form: l 16:27: INJ, ONCE, Stop date: 05/08/19 10:27:00 MAKEUP SALES CONSULTANT propofol 2018-06 No Route: IV, Mem oria (ANES) 1-15 Drug form: l 16:27: INJ, ONCE, Stop date: 05/08/19 10:27:00 MAKEUP SALES CONSULTANT rocuronium 2018-06 No Route: IV, M emoria (ANES) 1-15 Drug form: l 16:27: INJ, ONCE, Stop date: 05/08/19 10:27:00 MAKEUP SALES CONSULTANT dexamethaso 2018-06 No Route: IV, Memoria ne (ANES) 1-15 Drug form: l 16:27: INJ, ONCE, Stop date: 05/08/19 10:27:00 MAKEUP SALES CONSULTANT fentaNYL 2018-06 No Route: IV, Mem oria (ANES) 1-15 Drug form: l 16:22: INJ, ONCE, Stop date: 05/08/19 10:22:00 MAKEUP SALES CONSULTANT Lactated 2018-06 No Route: IV, Mem oria Ringers 1-15 Total l Injection 15:27: Volume: Tasneem nn IV (ANES) 00 1,000, 1000 mL Start date: 05/08/19 9:27:00 MAKEUP SALES CONSULTANT, Stop date: 05/08/19 10:27:00 MAKEUP SALES CONSULTANT Vancomycin 2018-06 No 2001 mg: Me moria 1-15 infuse l 15:00: over 2.5 hours For adult patients only: Round to nearest 250 mg per Medical Staff approval MEDICATION WASTE Product Size: 1000 mg Product Wasted: ___ mg Acetaminoph 2018-06 Yes 1-2 tab, Me moria en 325 MG / 1-15 PO, Q4-6H, l Hydrocodone 14:54: PRN Pain, H ermann Bitartrate 00 X 12 day, 10 MG Oral # 70 tab, Tablet 0 [[place] Refill(s) 10/325] Ondansetron 2018-06 Yes 4 mg = 1 Me moria 4 MG Oral 1-15 tab, PO, l Tablet 14:54: Q8H, PRN [place] [Zofran] 00 as needed for nausea/vom iting, # 20 tab, 1 Refill(s), Pharmacy: [place] [id number] Famotidine 2018-06 No Notes: Memor ia 20 MG Oral 1-15 (Same as: l Tablet 14:07: Pepcid) Calcium 2018-06 No 1,000 mL, Memor ia Chloride 1-15 Rate: 75 l 0.0014 12:34: ml/hr, Richard MEQ/ML / 00 Infuse Potassium over: 13.3 Chloride hr, Route: 0.004 IV, Dosing MEQ/ML / Weight 150 Sodium kg, Total Chloride Volume: 0.103 1,000, MEQ/ML / Start Sodium date: Lactate 05/08/19 0.028 6:34:00 MEQ/ML MAKEUP SALES CONSULTANT, Injectable Duration: Solution 30 day, Stop date: 06/07/19 6:33:00 MAKEUP SALES CONSULTANT, 2.75, m2, 0 Acetaminoph 2018-06 No Notes: Max Memoria en 1-15 acetaminop l 12:34: hen 4000 [place] 00 mg/day (4 gm/day). (Same as: Tylenol Extra Strength) gabapentin 2018-06 No Notes: Memor ia 1-15 (Same as: l 12:34: Neurontin) [place] 00 Lidocaine 2018-06 No Notes: Memori a Hydrochlori 1-15 Preservati l de 10 MG/ML 12:34: ve free. He rmann Injectable 00 (Same as: Solution Xylocaine MPF) Famotidine 2018-06 No Notes: Memor ia 1-15 (Same as: l 12:34: Pepcid) Richard 00 Can be dilute in 5-10cc NS IVP: Slow IV push over at least 2 minutes. Lactated 2018-06 No 1,000 mL, Bunny brianna Ringers 1-15 Rate: KVO l Injection 12:00: rate, [place] IV 1,000 mL 00 Route: IV, Dosing Weight 150 kg, Total Volume: 1,000, Start date: 05/08/19 6:00:00 MAKEUP SALES CONSULTANT, Duration: 30 day, Stop date: 06/07/19 5:59:00 MAKEUP SALES CONSULTANT, 2.75, m2, 0 Advair 2018-06 Yes INHALATION Memor ia Diskus 500 1-12 , BID, 0 l mcg-50 mcg 17:37: Refill(s) He rmann inhalation 00 powder Ibuprofen Ibuprofen 2018-06 Yes Uni vers 200 MG Oral 200 MG Oral 1-11 i ty of Tablet Tablet 00:00: [place] 00 Physici ans mesalamine 2018-06 Yes 1.2 gm = 1 M emoria 1200 MG 0-17 tab, PO, l Enteric 11:59: Daily, pt Tasneem nn Coated 00 takes 1 Tablet tab 4 [Lialda] x's/day, # 112 tab, 0 Refill(s) Sodium 2018-06 No 1,000 mL, Memori a Chloride 0-17 Rate: 75 l 0.9% IV 11:33: ml/hr, [place] 1000 mL 00 Infuse over: 13.3 hr, Route: IV, Dosing Weight 150.455 kg, Total Volume: 1,000, Start date: 04/09/19 6:33:00 CDT, Duration: 30 day, Stop date: 05/09/19 6:32:00 MAKEUP SALES CONSULTANT, 2.73, m2 0.5 ML 2018-06 Yes 50 mg = Memoria golimumab 0-16 0.5 ml, l 100 MG/ML 14:21: SUB-Q, Stefan n Prefilled 00 qMonth Syringe [Simponi] {2018-06 Yes 1 tab, PO, Memoria (Ethinyl 0-16 Daily l Estradiol 14:19: Richard 0.02 MG / 00 norethindro ne acetate 1 MG Oral Tablet) / 7 (Ferrous fumarate 75 MG Oral Tablet) } Pack [07/13 28 Day] Lidocaine 2018-06 Yes 5 %, TOP, Mem oria 0-16 ONCE l 14:16: [place] 00 gabapentin 2018-06 Yes 800 mg = 1 M emoria 800 MG Oral 0-16 tab, PO, l Tablet 14:16: TID Richard [Neurontin] 00 Diclofenac 2018-06 Yes 2 gm, TOP, M emoria Sodium 0.01 0-16 QID l MG/MG 14:15: Richard Topical Gel 00 amphetamine 2018-06 No 20 mg = 1 M emoria -dextroamph 0-16 tab, PO, l etamine 20 14:14: Daily, 0 Her guzman mg oral 00 Refill(s) tablet Fluticasone Fluticasone 2018-06 Yes CHONG Q0.5D INHALE ONE Univers -Salmeterol -Salmeterol 0-16 CHITRA PUFF BY ity of 500-50 500-50 00:00: M.D. MOUTH [place] MCG/DOSE MCG/DOSE 00 TWICE A Phys ici Inhalation Inhalation DAY ans Aerosol Aerosol Powder Powder Breath Breath Activated Activated CPAP CPAP Yes CHONG Please Univers Continuous Continuous 9-16 CHITRA provide ity of Positive Positive 00:00: M.D. [place] Airway Airway 00 with all Physici Pressure Pressure necessary an s CPAP supplies including mask (please fit), tubing, filters, etc. Good for ONE YEAR clindamycin Yes 300 mg = 1 Memoria 300 mg oral 03-06 cap, PO, l capsule 23:18: Q8H, X 10 Tasneem nn 00 day, # 30 cap, 0 Refill(s) Sodium No 1,000 mL, Memori a Chloride 03-06 1000 l 0.9% 19:45: ml/hr, Richard (Bolus) IV 00 Infuse Over: 1 hr, Route: IV, 1,000, Drug form: INJ, ONCE, Priority: STAT, Dosing Weight 150 kg, Start date: 03/06/19 14:45:00 CDT, Stop date: 03/06/19 14:45:00 CDT, 0 Morphine No Notes: Memoria 03-06 (Same l 19:45: as:MORPhin [place] 00 e Sulfate) Ondansetron No Notes: Bunny brianna 03-06 (Same as: l 19:45: Zofran) Richard 00 MEDICATION WASTE Product Size: 4 mg Product Wasted: ___ mg Simponi Yes SUB-Q, 0 Memori a 9-10 Refill(s) l 17:43: [place] 00 baclofen 20 Yes 20 mg = 1 M emoria mg oral 9-10 tab, PO, l tablet 17:43: TID, # 270 Tasneem nn 00 tab, 0 Refill(s) gabapentin Yes 800 mg = 1 M emoria 800 MG Oral 9-10 tab, PO, l Tablet 17:43: TID, # 90 Stefan n [Neurontin] 00 tab, 0 Refill(s) Buspar Yes 10 mg, PO, Memor ia 9-10 BID, 0 l 17:43: Refill(s) Richard 00 vortioxetin Yes 10 mg = 1 M emoria e 10 MG 9-10 tab, PO, l Oral Tablet 17:43: Daily, 0 He rmann [Trintellix 00 Refill(s) ] propranolol Yes 20 mg = 1 M emoria 20 mg oral 9-10 tab, PO, l tablet 17:43: TID, 0 Richard 00 Refill(s) Omeprazole Yes 40 mg, PO, M emoria 9-10 Daily, 0 l 17:43: Refill(s) Richard Trazodone 2018- Yes 100 mg = 1 Me moria Hydrochlori 9-10 tab, PO, l de 100 MG 17:43: TID, 0 Stefan n Oral Tablet 00 Refill(s) busPIRone Yes 10 mg = 1 Mem oria 10 mg oral 9-10 tab, PO, l tablet 17:43: BID, 0 Richard 00 Refill(s) Blisovi FE 0 Yes PO, Daily, M emoria 1.5/30 9-10 0 l 17:43: Refill(s) [place] 00 ProAir HFA 2018- Yes 1 - 2 Memori a 9-10 puffs, PO, l 17:43: Q4H, PRN [place] 00 Wheezing / cough / shortness of breath, # 1 ea, 0 Refill(s) 200 ACTUAT Yes 2 puff, Bunny brianna Albuterol 9-10 INHALATION l 0.09 17:43: , QID, 0 [place] MG/ACTUAT 00 Refill(s) Metered Dose Inhaler [Proventil] Cholestyram Yes 4 gm, PO, M emoria ine Resin 9-10 BID, 0 l 17:43: Refill(s) Richard 00 nitrofurant Yes 100 mg = 1 Memoria oin 9-10 cap, PO, l macrocrysta 17:43: QID, 0 Herm judy ls 100 mg 00 Refill(s) oral capsule (Macrodanti n) Prednisone 2018-0 Yes 5 mg, PO, Me moria 9-10 Daily, l 17:43: Quantity Richard 00 sufficient , 0 Refill(s) Lidocaine 5 Lidocaine 5 2018- [facility] % External % External 8-12 JAMALYARIA PATCH TO ity of Patch Patch 00:00: M.D. THE [place] [id number] AFFECTED Physici AREA AND ans LEAVE IN PLACE FOR 12 HOURS, THEN REMOVE AND LEAVE OFF FOR 12 HOURS. Proventil Proventil Yes CHONG INHALE ONE Univers HFA 108 (90 HFA 108 (90 8-12 CHITRA TO TWO ity of Base) Base) 00:00: M.D. PUFFS BY [place] MCG/ACT MCG/ACT 00 MOUTH Physici Inhalation Inhalation EVERY 4 ans Aerosol Aerosol HOURS Solution Solution NEEDED Diclofenac Diclofenac 2018- Yes ROXANN APPLY 2 GM Univers Sodium 1 % Sodium 1 % 01-29 JAMALYARIA OF GEL TO ity of Transdermal Transdermal 00:00: M.D. AFFECTED [place] Gel Gel 00 AREA 4 Physici TIMES ans DAILY. DO NOT APPLY MORE THAN 8 GM DAILY TO ANY ONE AFFECTED AREA. Omeprazole Omeprazole 2018- Yes KOBE 1 QD TAKE 1 [facility] 40 MG Oral 40 MG Oral 01-23 OBONYANO CAPSULE ity of Capsule Capsule 00:00: LUMBER STRAIGHTENED DAILY [place] Delayed Delayed 00 Physici Release Release ans Yes COREY HOBSON 1 QD TAKE 1 [facility] 07/13-07/13 7 LUMBER STRAIGHTENED TABLET ity of MG-MCG Oral MG-MCG Oral 00:00: DAILY. [place] Tablet Tablet 00 Physici ans Trintellix Trintellix Yes HECTOR Take one [facility] 10 MG Oral 10 MG Oral 7-23 STORM M.D. tablet ity of Tablet Tablet 00:00: daily [place] 00 Physici ans Propranolol Propranolol 2018- Yes HECTOR 1 Q0.5D TAKE ONE [facility] HCl - 20 MG HCl - 20 MG 7-08 STORM M.D. TABLET BY ity of Oral Tablet Oral Tablet 00:00: MOUTH [place] 00 TWICE A Physici DAY ans NEEDED traZODone traZODone Yes HECTOR 1 TAKE ONE [facility] HCl - 100 HCl - 100 7-08 STORM M.D. TABLET BY ity of MG Oral MG Oral 00:00: MOUTH AT Tim as Tablet Tablet 00 BEDTIME Physici ans Neurontin Neurontin 2018- Yes ALANA JITENDRA Q0.3333D TAKE 1 [facility] 800 MG Oral 800 MG Oral 7-08 M.D. TABLET 3 ity of Tablet Tablet 00:00: TIMES [place] 00 DAILY. Physici ans Baclofen 20 Baclofen 20 Yes ALANA JITENDRA 1 Q0.3333D TAKE 1 [facility] MG Oral MG Oral 7-08 M.D. TABLET 3 ity o f Tablet Tablet 00:00: TIMES [place] 00 DAILY Physici NEEDED. ans baclofen 0 2019- No Myalgia 20mg Q.5D Take 1 Jolanta ston (LIORESAL) 4- 07-21 tablet (20 Me thodi 20 MG 00:00: 23:59 mg total) st tablet 00 :00 by mouth 2 (two) times a day for 90 days. gabapentin 2018- No 800mg [id number] Take 1 [facility] (NEURONTIN) 10-13 [id number] tablet [facility] 800 mg 00:00: 23:59 3D ([address] tablet 00 :00 total) by mouth 3 (three) times a day for 90 days. azaTHIOprin 2018- No 150mg QD Take 3 [place] (IMURAN) 09-30 10-06 tablets Metho di 50 mg 00:00: 23:59 ([address] tablet 00 :00 total) by mouth daily for 180 days. SIMPONI 50 Yes Chronic low INJECT 1 Steve mg/0.5 mL 4-10 back pain PEN (50 Me thodi pen 00:00: with MG) st injector 00 sciatica, SUBCUTANEO sciatica USLY EVERY laterality 28 DAYS. unspecified , unspecified back pain laterality cetirizine Yes TAKE ONE Jolanta ston (ZyrTEC) 10 2-21 TABLET BY Met hodi MG tablet 00:00: MOUTH st 00 DAILY hydrOXYzine Yes TAKE ONE [place] (ATARAX) 25 2-21 TABLET BY [facility] MG tablet 00:00: MOUTH st 00 DAILY ADVAIR 2016-06 Yes INHALE ONE [place] on DISKUS 1-01 PUFF BY [facility] 500-50 00:00: MOUTH st mcg/dose 00 TWICE A DISKUS DAY buPROPion 2016-06 Yes 300mg QD Take 300 Jolanta ston XL 0-30 mg by [facility] (WELLBUTRIN 13:19: mouth st XL) 300 MG 10 daily. 24 hr tablet L. 2016-06 Yes 1{tbl} QD Take 1 Steve RHAMNOSUS 0-30 tablet by Metho di GG/INULIN 13:19: mouth st (CULTURELLE 10 daily. [employer] ORAL) traZODone 2016-06 Yes 100mg Q.5D Take 100 Jolanta ston (DESYREL) 0-30 mg by Methodi 100 MG 13:19: mouth 2 st tablet 10 (two) times a day. mesalamine 2016-06 Yes 1200mg Q.25D Take 1,200 Steve (LIALDA) 0-30 mg by Methodi 1.2 gram EC 13:19: mouth 4 st tablet 10 (four) times a day. norethindro 2016-06 Yes 1{tbl} QD Take 1 Ho gab ne-e.estrad 0-30 tablet by Met jiang iol-iron 13:19: mouth st (LOESTRIN 10 daily. 24 FE) 1 mg-20 mcg (24)/75 mg (4) per tablet mometasone Yes 2{spray QD 2 sprays Steve (NASONEX) 4-10 } into each Metho di 50 00:00: nostril st mcg/actuati 00 daily. on nasal spray albuterol Yes 1{puff} Q6H Inhale 1-2 Steve (PROAIR 4-10 puffs Methodi HFA,PROVENT 00:00: every 6 st [place] 00 (six) HFA,VENTOLI hours as N HFA) 90 needed for mcg/actuati shortness on inhaler of breath. clonAZEPAM 2015-06 Yes Steve (KlonoPIN) 2-10 Methodi 0.5 MG 00:00: st tablet 00 escitalopra Yes 20mg QD Take 20 mg Steve m (LEXAPRO) 9-27 by mouth Meth daniela 20 MG 00:00: daily. st tablet 00 nitrofurant Yes 100mg Q.5D Take [address] oin, 7-27 mg [facility] macrocrysta 17:54: mouth 2 Med ical l-monohydra 49 (two) Center te, times (MACROBID) daily. 100 MG capsule traZODone Yes 200mg QD Take [address] [facility] (DESYREL) 7-11 mg by [facility] - 100 MG 15:13: mouth Medical tablet 23 nightly. Center buPROPion Yes 450mg QD Take [address] HCl 450 mg 7-11 mg by [facility] - Tb24 15:09: mouth Medical 18 daily. Center albuterol Yes 1{puff} Inhale [address] HFA 7-11 puff by [facility] - (VENTOLIN 15:09: mouth via Med ical HFA) 90 18 inhaler Center mcg/actuati every 6 on inhaler (six) hours as needed for Wheezing. fluticasone Yes 1{puff} Inhale [address] -salmeterol 7-11 puff by [facility] - (ADVAIR) 15:09: mouth via Medi tyler 100-50 18 inhaler Center mcg/dose every 12 diskus (twelve) inhaler hours. dexlansopra Yes 60mg QD Take [address] [address] zole 60 mg 7-11 by mouth [facility] - capsule 15:09: daily. Medical 17 Center norethindro Yes 1{tbl} QD Take [address] ne-ethinyl 7-11 tablet by Luke s - estradiol 15:07: mouth Medical (MICROGESTI 57 daily. Center N 07/13) 1-20 mg-mcg per tablet Immunizations Ordered Filled Date Status Comments Source Immunization Name Immunization Name FLUZONE QUAD PF 2016-04-17 Completed [place] 00:00:00 [facility] Tdap Unknown Completed [facility] Physicia ns Vital Signs Vital Name Observation Time Observation Value Comments Source Heart Rate 2019-12-24 [facility] 21:16:00 Respitory Rate 2019-12-24 [facility] 21:16:00 Systolic (mm Hg) 2019-12-24 [facility] 21:16:00 Diastolic (mm Hg) 2019-12-24 [facility] 21:16:00 Temperature Oral 2019-12-24 97.7 F [facility] (F) 16:40:00 Heart Rate 2019-12-24 [facility] 16:40:00 Respitory Rate 2019-12-24 [facility] 16:40:00 Systolic (mm Hg) 2019-12-24 [facility] 16:40:00 Diastolic (mm Hg) 2019-12-24 [facility] 16:40:00 Temperature Oral 2019-12-24 97.8 F [facility] (F) 13:10:00 Heart Rate 2019-12-24 [facility] 13:10:00 Respitory Rate 2019-12-24 [facility] 13:10:00 Systolic (mm Hg) 2019-12-24 [facility] 13:10:00 Diastolic (mm Hg) 2019-12-24 [facility] 13:10:00 Temperature Oral 2019-12-24 97.9 F [facility] (F) 09:03:00 Height 2019-12-24 175.26 cm [facility] 03:50:00 Weight 2019-12-24 [facility] 03:50:00 BMI Calculated 2019-12-24 [facility] 03:50:00 Height 2019-12-23 175.26 cm [facility] 22:41:00 BMI Calculated 2019-12-23 [facility] 22:41:00 Weight 2019-12-23 [facility] 22:41:00 Respitory Rate 2019-11-27 [facility] 16:30:00 Systolic (mm Hg) 2019-11-27 [facility] 16:30:00 Diastolic (mm Hg) 2019-11-27 [facility] 16:30:00 Respitory Rate 2019-11-27 [facility] 16:15:00 Systolic (mm Hg) 2019-11-27 [facility] 16:15:00 Diastolic (mm Hg) 2019-11-27 [facility] 16:15:00 Respitory Rate 2019-11-27 [facility] 16:00:00 Systolic (mm Hg) 2019-11-27 [facility] 16:00:00 Diastolic (mm Hg) 2019-11-27 [facility] 16:00:00 Heart Rate 2019-11-27 [facility] 12:30:00 Weight 2019-11-27 [facility] 11:55:00 BMI Calculated 2019-11-27 [facility] 11:55:00 Height 2019-11-25 175.26 cm [facility] 16:39:00 Systolic (mm Hg) 2019-08-07 [facility] 16:09:00 Diastolic (mm Hg) 2019-08-07 [facility] 16:09:00 Heart Rate 2019-08-07 [facility] 16:09:00 Respitory Rate 2019-08-07 [facility] 16:09:00 Height 2019-08-07 175.26 cm [facility] 16:09:00 Weight 2019-08-07 [facility] 16:09:00 BMI Calculated 2019-08-07 [facility] 16:09:00 BP Systolic 2019-07-13 118 mm[Hg] Location: [facility] 13:08:00 Position: [place] Physician Sitting BP Diastolic 2019-07-13 73 mm[Hg] Location: LUE; [facility] 13:08:00 Position: [place] Phys[facility] s Sitting Height 2019-07-13 68 [in_us] University 13:08:00 [place] [facility] Weight 2019-07-13 331 [lb_av] University 13:08:00 [place] [facility] Body Mass Index 2019-07-13 50.33 kg/m2 University o f Calculated 13:08:00 [place] [facility] Heart Rate 2019-07-13 84 /min [facility] 13:08:00 [place] [facility] Respitory Rate 2019-05-08 [facility] 21:00:00 Systolic (mm Hg) 2019-05-08 [facility] 21:00:00 Diastolic (mm Hg) 2019-05-08 [facility] 21:00:00 Respitory Rate 2019-05-08 [facility] 20:00:00 Systolic (mm Hg) 2019-05-08 [facility] 20:00:00 Diastolic (mm Hg) 2019-05-08 [facility] 20:00:00 Respitory Rate 2019-05-08 [facility] 19:45:00 Systolic (mm Hg) 2019-05-08 [facility] 19:45:00 Diastolic (mm Hg) 2019-05-08 [facility] 19:45:00 Weight 2019-05-08 Maryam Villarrealan n 14:12:00 BMI Calculated 2019-05-08 [facility] 14:12:00 Height 2019-05-05 175.26 cm Maryam Villarrealan n 19:19:00 BP Systolic 2019-04-16 100 mm[Hg] Location: [facility] 12:58:00 Position: [place] Physician s Sitting BP Diastolic 2019-04-16 66 mm[Hg] Location: [facility] 12:58:00 Position: [place] Physician s Sitting Height 2019-04-16 68 [in_us] [facility] 12:58:00 [place] [facility] s Weight 2019-04-16 332 [lb_av] [facility] 12:58:00 [place] [facility] s Body Mass Index 2019-04-16 50.48 kg/m2 University o f Calculated 12:58:00 [place] [facility] Heart Rate 2019-04-16 91 /min Location: [facility] 12:58:00 Radial; [place] Phys[facility] s Quality: Normal Respitory Rate 2019-04-09 [facility] 13:15:00 Systolic (mm Hg) 2019-04-09 [facility] 13:15:00 Diastolic (mm Hg) 2019-04-09 [facility] 13:15:00 Respitory Rate 2019-04-09 [facility] 13:00:00 Systolic (mm Hg) 2019-04-09 [facility] 13:00:00 Diastolic (mm Hg) 2019-04-09 [facility] 13:00:00 Respitory Rate 2019-04-09 [facility] 12:45:00 Systolic (mm Hg) 2019-04-09 [facility] 12:45:00 Diastolic (mm Hg) 2019-04-09 [facility] 12:45:00 Heart Rate 2019-04-09 [facility] 11:49:00 Height 2019-04-08 172.72 cm [facility] 14:09:00 Weight 2019-04-08 [facility] 14:09:00 BMI Calculated 2019-04-08 [facility] 14:09:00 BP Systolic 2019-03-26 122 mm[Hg] Location: [facility] 11:25:00 Position: [place] Physician s Sitting BP Diastolic 2019-03-26 73 mm[Hg] Location: [facility] 11:25:00 Position: [place] Phys[facility] s Sitting Height 2019-03-26 68 [in_us] [facility] 11:25:00 [place] [facility] Weight 2019-03-26 335 [lb_av] [facility] 11:25:00 [place] [facility] Body Mass Index 2019-03-26 50.94 kg/m2 University o f Calculated 11:25:00 [place] [facility] Heart Rate 2019-03-26 84 /min University 11:25:00 [place] [facility] Respiration Rate 2019-03-26 18 /min [facility] 11:25:00 [place] [facility] Temperature Oral 2019-03-06 98.1 F [facility] (F) 23:56:00 Heart Rate 2019-03-06 [facility] 23:56:00 Respitory Rate 2019-03-06 [facility] 23:56:00 Systolic (mm Hg) 2019-03-06 [facility] 23:56:00 Diastolic (mm Hg) 2019-03-06 [facility] 23:56:00 Temperature Oral 2019-03-06 98.2 F [facility] (F) 22:57:00 Heart Rate 2019-03-06 [facility] 22:57:00 Respitory Rate 2019-03-06 [facility] 22:57:00 Systolic (mm Hg) 2019-03-06 [facility] 22:57:00 Diastolic (mm Hg) 2019-03-06 [facility] 22:57:00 Systolic (mm Hg) 2019-03-06 [facility] 15:57:00 Diastolic (mm Hg) 2019-03-06 [facility] 15:57:00 Heart Rate 2019-03-06 [facility] 15:57:00 Respitory Rate 2019-03-06 [facility] 15:57:00 Temperature Oral 2019-03-06 98.2 F [facility] (F) 15:57:00 Height 2019-03-06 172.72 cm [facility] 15:57:00 BMI Calculated 2019-03-06 [facility] 15:57:00 Weight 2019-03-06 [facility] 15:57:00 BP Systolic 2019-03-05 119 mm[Hg] Location: [facility] 10:35:00 Position: [place] Physician s Sitting BP Diastolic 2019-03-05 79 mm[Hg] Location: [facility] 10:35:00 Position: [place] Physician s Sitting Height 2019-03-05 68 [in_us] [facility] 10:35:00 [place] [facility] Weight 2019-03-05 331 [lb_av] [facility] 10:35:00 [place] [facility] Body Mass Index 2019-03-05 50.33 kg/m2 University o f Calculated 10:35:00 [place] [facility] Heart Rate 2019-03-05 90 /min Location: [facility] 10:35:00 Radial; [place] Phys[facility] s Temperature 2019-03-05 98.4 [degF] Method: Oral [facility] 10:35:00 [place] [facility] Systolic (mm Hg) 2019-03-03 [facility] 17:09:00 Diastolic (mm Hg) 2019-03-03 [facility] 17:09:00 Heart Rate 2019-03-03 [facility] 17:09:00 Respitory Rate 2019-03-03 [facility] 17:09:00 Temperature Oral 2019-03-03 98.2 F [facility] (F) 17:09:00 Height 2019-03-03 173 cm [facility] 17:09:00 Weight 2019-03-03 [facility] 17:09:00 BMI Calculated 2019-03-03 [facility] 17:09:00 BP Systolic 2019-02-05 120 mm[Hg] Location: DAO; [facility] 16:19:00 Position: [place] Physician s Sitting BP Diastolic 2019-02-05 74 mm[Hg] Location: [facility]; [facility] 16:19:00 Position: [place] Physician s Sitting Height 2019-02-05 68 [in_us] University 16:19:00 [place] [facility] Weight 2019-02-05 329 [lb_av] [facility] 16:19:00 [place] [facility] Body Mass Index 2019-02-05 50.02 kg/m2 University o f Calculated 16:19:00 [place] [facility] Temperature 2019-02-05 98 [degF] Method: Oral [facility] 16:19:00 [place] [facility] Heart Rate 2019-02-05 89 /min Location: [facility] 16:19:00 Radial; [place] Physician s Quality: Normal Respiration Rate 2019-02-05 18 /min Quality: Normal [facility] 16:19:00 [place] [facility] O2 SAT 2019-02-05 95 % Source: [facility] 16:19:00 [place] [facility] BP Systolic 2019-01-29 120 mm[Hg] Location: [facility]; [facility] 15:41:00 Position: [place] Physician s Sitting BP Diastolic 2019-01-29 80 mm[Hg] Location: [facility]; [facility] 15:41:00 Position: [place] Physician s Sitting Height 2019-01-29 68 [in_us] [facility] 15:41:00 [place] [facility] Weight 2019-01-29 325 [lb_av] [facility] 15:41:00 [place] [facility] Body Mass Index 2019-01-29 49.42 kg/m2 University o f Calculated 15:41:00 [place] [facility] Heart Rate 2019-01-29 89 /min [facility] 15:41:00 [place] [facility] Respiration Rate 2019-01-29 16 /min [facility] 15:41:00 [place] [facility] BP Systolic 2019-01-23 111 mm[Hg] Location: [facility]; [facility] 13:46:00 Position: [place] Physician s Sitting BP Diastolic 2019-01-23 69 mm[Hg] Location: [facility]; [facility] 13:46:00 Position: [place] Physician s Sitting Height 2019-01-23 68 [in_us] [facility] 13:46:00 [place] [facility] Weight 2019-01-23 330 [lb_av] [facility] 13:46:00 [place] [facility] Body Mass Index 2019-01-23 50.18 kg/m2 University o f Calculated 13:46:00 [place] [facility] Heart Rate 2019-01-23 86 /min Location: L [facility] 13:46:00 Radial; [place] Phys[facility] Quality: Normal BP Systolic 2019-01-14 101 mm[Hg] [facility] 12:53:00 Position: [place] Physician s Sitting BP Diastolic 2019-01-14 66 mm[Hg] Location[facility] 12:53:00 Position: [place] Physician s Sitting Height 2019-01-14 68 [in_us] [facility] 12:53:00 [place] [facility] Body Mass Index 2019-01-14 49.2 kg/m2 University o f Calculated 12:53:00 [place] [facility] Weight 2019-01-14 323.6 [lb_av] [facility] 12:53:00 [place] [facility] Respiration Rate 2019-01-14 18 /min Quality: Normal [facility] of 12:53:00 [place] [facility] Temperature 2019-01-14 97.8 [degF] Method: Oral [facility] 12:53:00 [place] [facility] Heart Rate 2019-01-14 86 /min Location: R [facility] 12:53:00 Brachial [place] [facility] s Artery; Quality: Normal O2 SAT 2019-01-14 95 % Source: [facility] 12:53:00 [place] [facility] BP Systolic 2019-01-14 120 mm[Hg] [facility] 08:57:00 [place] [facility] BP Diastolic 2019-01-14 76 mm[Hg] [facility] 08:57:00 [place] [facility] Height 2019-01-14 68 [in_us] [facility] 08:57:00 [place] [facility] Body Mass Index 2019-01-14 49.42 kg/m2 University o f Calculated 08:57:00 [place] [facility] Weight 2019-01-14 325 [lb_av] [facility] 08:57:00 [place] [facility] Respiration Rate 2019-01-14 18 /min [facility] 08:57:00 [place] [facility] Heart Rate 2019-01-14 82 /min [facility] 08:57:00 [place] [facility] O2 SAT 2019-01-14 93 % [facility] 08:57:00 [place] [facility] BP Systolic 2019-01-14 120 mm[Hg] Location: [facility] 08:45:00 Position: [place] Physician s Sitting BP Diastolic 2019-01-14 76 mm[Hg] [facility]: [facility] 08:45:00 Position: [place] Physician s Sitting Height 2019-01-14 68 [in_us] University 08:45:00 [place] [facility] Body Mass Index 2019-01-14 49.42 kg/m2 University o f Calculated 08:45:00 [place] [facility] Weight 2019-01-14 325 [lb_av] University 08:45:00 [place] [facility] Respiration Rate 2019-01-14 18 /min [facility] 08:45:00 [place] [facility] Heart Rate 2019-01-14 82 /min [facility] 08:45:00 [place] [facility] O2 SAT 2019-01-14 93 % Source: [facility] 08:45:00 [place] [facility] O2 SAT 2019-01-13 94 % Source: [facility] 08:31:00 [place] [facility] BP Systolic 2019-01-13 119 mm[Hg] Location: [facility] 08:26:00 Position: [place] Physician s Sitting BP Diastolic 2019-01-13 79 mm[Hg] Location: [facility] 08:26:00 Position: [place] Physician s Sitting Heart Rate 2019-01-13 91 /min University 08:26:00 [place] [facility] Respiration Rate 2019-01-13 19 /min [facility] 08:26:00 [place] [facility] BP Systolic 2019-01-13 123 mm[Hg] Location: [facility] 08:22:00 Position: [place] Physician s Sitting BP Diastolic 2019-01-13 85 mm[Hg] Location: [facility] 08:22:00 Position: [place] Physician s Sitting Height 2019-01-13 68 [in_us] [facility] 08:22:00 [place] [facility] Weight 2019-01-13 325 [lb_av] [facility] 08:22:00 [place] [facility] Body Mass Index 2019-01-13 49.42 kg/m2 University o f Calculated 08:22:00 [place] [facility] BP Systolic 2018-12-29 111 mm[Hg] Location: [facility] 13:10:00 Position: [place] Physician s Sitting BP Diastolic 2018-12-29 73 mm[Hg] Location: [facility] 13:10:00 Position: [place] Physician s Sitting Weight 2018-12-29 325.4375 [lb_av] [facility] 13:10:00 [place] [facility] Height 2018-12-29 68 [in_us] [facility] 13:10:00 [place] [facility] Body Mass Index 2018-12-29 49.48 kg/m2 University o f Calculated 13:10:00 [place] [facility] Temperature 2018-12-29 98.3 [degF] Method: Oral [facility] 13:10:00 [place] [facility] Heart Rate 2018-12-29 93 /min Location: L [facility] 13:10:00 Brachial [place] [facility] Artery; Quality: Normal O2 SAT 2018-12-29 94 % Source: RA [facility] 13:10:00 [place] [facility] Respiration Rate 2018-12-29 20 /min Quality: Normal [facility] 13:10:00 [place] [facility] Procedures Procedure Date / Time Performing Clinician Source Performed US Extremity lower venous 2019-12-23 [facility]:00[facility] [id number] Phys[facility] MR Ankle wo contrast [id number] 2019-10-19 00:00[facility]00 [facility] Spine lumbar wo 2019-08-24 00:00:00 [facility] contrast [id number] Physicians Post Op Promis 29 Survey 2019-05-20 00:00:00 [facility] Physicians Injection procedure for 2019-05-07 20:09:36 Bunny Ramos shoulder arthrography or enhanced CT/MRI shoulder arthrography [QLH] CLOSTRIDIUM 2019-04-16 00:00:00 [facility] DIFFICILE TOXIN A AND B, Physici ans EIA [QLH] CULTURE, STOOL 2019-04-16 00:00:00 [facility] (CAMPYLOBACTER, Physicians SALMONELLA/SHIGELLA) MR Shoulder wo contrast 2019-04-08 00:00:00 [facility] [id number] Physicians Colonoscopy 2019-03-06 00:00:00 [facility] [facility] [place] [facility] [QLH] CLOSTRIDIUM 2019-03-05 00:00:00 [facility] DIFFICILE TOXIN A AND B, Physici ans EIA [QLH] CULTURE, URINE, 2019-02-13 00:00:00 [facility] ROUTINE Physicians [LH] GC/CT by Amp Det 2019-02-13 00:00:00 [facility] (APTIMA) Physicians MR Ankle wo contrast [id number] 2019-02-10 00:00:00 [facility] [QH] DRUG 2019-02-09 00:00:00 [place] [facility] [place] SCREEN,COMPREHENSIVE Physicians (URINE) XRAY Clavicle Bilateral 2019-01-29 00:00[facility] [id number] [facility] [H] Celiac Pnl w/Rflx 2019-01-23 00:00:00 [facility] Endomy Ab Ttr Physicians [QLH] HEPATIC FUNCTION 2019-01-23 00:00[facility] PANEL Physicians [H] LUNDBERG FibroSure 2019-01-23 00:00:00 [facility] Physicians [QLH] CALPROTECTIN, STOOL 2019-01-23 00:00:00 [facility] US Abdomen Doppler [id number] 2019-01-23 00:00:00 [facility] Physicians [facility] Sleep Lab - Sleep 2019-01-14 00:00:00 [facility] Study Split Night Physicians [H] CK Isoenzymes 2019-01-14 00:00:00 [facility] Physicians Complete PFTs w/DLCO and 2019-01-14 00:00:00 [facility] Lung Volumes Physicians [N] 2D Echo complete, with 2019-01-14 00:00:00 [facility] [id number] Physicians [QLH] URINALYSIS, COMPLETE 2019-01-13 00:00:00 [facility] W/REFLEX TO CULTURE Physicians [QH] PROTEIN, TOTAL 2019-01-13 00:00:00 [facility] W/CREAT, RANDOM URINE Physicians [QL] QUANTIFERON(R)-TB 2019-01-13 00:00:00 [facility] GOLD Physicians [QLH] HEPATITIS C ANTIBODY 2019-01-13 00:00:00 [facility] [QH] HEPATITIS B SURFACE 2019-01-13 00:00:00 [facility] ANTIGEN W/REFL CONFIRM Physician s [QH] CYCLIC CITRULLINATED 2019-01-13 00:00:00 [facility] PEPT[facility] (CCP) AB (IGG) Physician s XRAY Knee 1-2 Views 2019-01-13 00:00:[address] [facility] Bilateral [id number] Physicians XRAY Chest 2 views [id number] 2019-01-13 00:00:00 [facility] Physicians XRAY Hip bilateral w 2019-01-13 00:00:00 [facility] pelvis and both lat [place] [id number] XRAY Spine lumbar AP 2019-01-13 00:00:00 [facility] lateral [id number] Physicians XRAY Spine cervical 2 or 2019-01-13 00:00:00 [facility] 3 view [id number] Physicians XRAY Shoulder series [id number] 2019-01-13 00:00:00 U [facility] Physicians [QLH] TSH, 3RD GENERATION 2018-12-29 00:00:00 Un [facility] W/REFLEX TO FT4 Physicians [QH] LIPID PANEL WITH 2018-12-29 00:00:00 [facility] REFLEX TO DIRECT LDL Physicians [QL] HEMOGLOBIN A1c 2018-12-29 00:00:00 [facility] Physicians [QLH] CMP W/EGFR 2018-12-29 00:00:00 [facility] Physicians [QL] CBC (INCLUDES 2018-12-29 00:00:00 [facility] DIFF/PLT) Physicians [QH] HIV AB, HIV 1/2, EIA, 2018-12-29 00:00:00 U [facility] WITH REFLEXES Physicians [QL] ABDOUL PANEL, 2018-12-29 00:00:00 [facility] COMPREHENSIVE Physicians [QL] SED RATE BY MODIFIED 2018-12-29 00:00:00 U [facility] WESTERGREN Physicians [H] CRP, hs, Cardiac Risk 2018-12-29 00:00:00 [facility] [H] Urinalysis w/ 2018-12-29 00:00:00 [facility] Microscopic Physicians [QLH] CULTURE, URINE, 2018-12-29 00:00:00 [facility] ROUTINE Physicians [O] Urine Dipstick (In 2018-12-29 00:00:00 [facility] Office) Physicians [facility] Physicians History of Endometrial [facility] [place] ablation Physicians History of [facility] Physicians History of Cholecystectomy [facility] Physicians History of Sinus Surgery [facility] Physicians Adenoid operation [facility] [place] nn D&C - [facility] ermann Kidney [facility] operation<sup>1</sup> Nasal septoplasty [facility] Plan of Care Planned Activity Planned Date Details Comments Source Future Scheduled Test 2020-01-23 INFLUENZA VACCINE H katlin [facility] 00:00:00 [code = INFLUENZA VACCINE] Diagnostic Test 2019-04-13 [LH] GC/CT by Amp [facility] Pending 00:00:00 Det (APTIMA) [code = Physici ans [LH] GC/CT by Amp Det (APTIMA)] Diagnostic Test 2019-04-09 Colonoscopy [code = [facility] [place] Pending 00:00:00 [id number]] Physicians Diagnostic Test 2019-04-09 Colonoscopy [code = [facility] [place] Pending 00:00:00 [id number]] Physicians Diagnostic Test 2019-04-09 Colonoscopy [code = [facility] [place] Pending 00:00:00 [id number]] Physicians Diagnostic Test 2019-04-08 Shoulder [facility] Pending 00:00:00 contrast [id number] [code Physici ans = [id number]] Diagnostic Test 2019-04-08 MR Shoulder wo [facility] Pending 00:00:00 contrast [id number] [code Physici ans = [id number]] Diagnostic Test 2019-03-30 Colonoscopy [code = [facility] [place] Pending 00:00:00 [id number]] Physicians Diagnostic Test 2019-03-30 Colonoscopy [code = [facility] [place] Pending 00:00:00 [id number]] Physicians Diagnostic Test 2019-03-30 Colonoscopy [code = [facility] [place] Pending 00:00:00 [id number]] Physicians Diagnostic Test 2019-03-30 Colonoscopy [code = [facility] [place] Pending 00:00:00 [id number]] Physicians Diagnostic Test 2019-01-14 [facility] and Lung Volumes Physicians [code = Complete PFTs w/DLCO and Lung Volumes] Diagnostic Test 2019-01-14 [facility] Sleep Lab - [facility] Pending 00:00:00 Sleep Study Split Physicians Night [code = [facility] Sleep Lab - Sleep Study Split Night] Diagnostic Test 2019-01-14 [N] 2D Echo [facility] Pending 00:00:00 complete, with Physicians Doppler [id number] [code = [N] 2D Echo complete, with Doppler [id number]] Diagnostic Test 2019-01-14 [facility] Sleep [facility] - [facility] Pending 00:00:00 Sleep Study Split Physicians Night [code = [facility] Sleep Lab - Sleep Study Split Night] Diagnostic Test 2019-01-14 Complete PFTs w/DLCO [facility] Pending 00:00:00 and Lung Volumes Physicians [code = Complete PFTs w/DLCO and Lung Volumes] Diagnostic Test 2019-01-14 [facility] Sleep Lab [facility] Pending 00:00:00 Sleep Study Split Physicians Night [code = [facility] Sleep Lab - Sleep Study Split Night] Diagnostic Test 2019-01-14 [N] 2D Echo [facility] Pending 00:00:00 complete, with Physicians Doppler [id number] [code = [N] 2D Echo complete, with Doppler [id number]] Future Scheduled Test 2001 Screening for [place] on Mandae[facility] 00:00:00 malignant neoplasm of cervix (procedure) [code = 074217494] Future Appointment 2020-01-27 Radha YOUNG [facility] 15:30:00 Physicians Future Appointment 2020-01-19 Radha CARLTON [facility] 10:50:00 Jimy BILL Encounters Start End Encounter Admission Attending Care Care Encounter Source Date/Time Date/Time Type Type Clinicians Facility Department ID 2019-10-23 [id number] 07:24:40 2019-12-23 2019-12-24 Outpatient Parvclaudioi, MHSL MHSL [id number] 17:36:38 17:46:00 Gio 11 2019-12-23 2019-12-23 Outpatient E MHFB MED [id number] MHFB 17:36:00 17:36:00 2019-12-21 2019-12-22 Emergency Schaffer[facility] 1.2.840.114 [id number] 22:02:00 02:26:00 Enedina Capps 350.1.13.10 Joice 4.2.7.2.686 [place] [id number] 2019-12-15 2019-12-15 Appointmelina BILL [facility] Orthopedics [id number] Univers 11:10:00 11:10:00 lisette CARLTON [facility] Radha BILL [facility] BRANDT Orthopedic Phys simone Garcia [facility] 2019-11-27 2019-11-27 Outpatient ADONAY BillSL MHSL [id number] 06:50:00 11:40:00 Brandt Wolf Guzmanadriana 2019-11-27 2019-11-27 Layla BILL, [facility] UTP [id number] Univers 08:00:00 08:00:00 t; josé miguel CARLTON M.D. [place] Adrien CARLTON M.D. [facility] 2019-11-27 2019-11-27 Outpatient MHFB MHFB [id number] MHFB 06:50:00 06:50:00 2019-11-10 2019-11-10 Layla BILL, [facility] UTP [id number] Univers 10:45:00 10:45:00 t; josé miguel CARLTON M.D. [place] Adrien CARLTON M.D. [facility] 2019-10-27 2019-10-27 Layla BILL, [facility] UTP [id number] Univers 11:30:00 11:30:00 t; josé miguel CARLTON M.D. [place] Adrien CARLTON M.D. [facility] 2019-10-23 2019-10-23 Appointmelina ZAVALA, [facility] UTP [id number] Univers 12:45:00 12:45:00 t; ELOISE ZAVALA [facility] 2019-10-16 2019-10-16 Layla BILL, [facility] UTP [id number] Univers 10:30:00 10:30:00 t; josé miguel CARLTON M.D. [place] Adrien CARLTON M.D. [facility] 2019-09-30 2019-09-30 AppointJOELLE Cintron Multispecia [id number] Univers 15:30:00 15:30:00 t; HECTOR STORM lty - ity o f SHAOJIE, M.D. Internation Tim martin M.D. al District Phys ici [facility] 2019-09-11 2019-09-11 Telephone Oneyda KSJUANITO 1.2.840.114 [id number] 00:00:00 00:00:00 Tracey Capps 350.1.13.10 Romain 4.2.7.2.686 Profkamaljit [id number] [address] 2019-08-24 2019-08-24 Appointmen JOELLE PERAZA Orthopedics [id number] Univers 14:30:00 14:30:00 t; HOLGER [facility] Orthopedic Physi ci and [facility] 2019-08-20 2019-08-20 Emergency [facility], [facility] [id number] 11:54:02 15:29:00 Mehreen Capps 350.1.13.10 Joice 4.2.7.2.686 [place] [id number] 2019-08-20 2019-08-20 Orders Doctor KYLIE 1.2.840.114 [id number] 00:00:00 00:00:00 Only Unassigned, TI 350.1.13.[address] [facility] 4.2.7.2.686 [id number] 2019-08-13 2019-08-14 Outpatient [facility] [id number] 18:55:26 18:55:26 2019-08-13 2019-08-13 JOELLE López Orthopedics [id number] Univers 09:45:00 09:45:00 t; lilly CARLTON [facility] Alvarado M.D. [facility] Flo CARLTON M.D. [facility] 2019-08-07 2019-08-07 Outpatient ADONAY ZavalaMiguel [facility] [id number] 10:04:00 23:59:00 Eloise Henderson 2019-08-07 2019-08-07 Outpatient [facility] [id number] [facility] 10:04:00 10:04:00 2019-08-07 2019-08-07 JOELLE Coffman [facility] [id number] Univers 10:00:00 10:00:00 t; [facility] 2019-08-04 2019-08-04 JOELLE López [facility] [id number] Univers 13:30:00 13:30:00 t; josé miguel CARLTON M.D. [place] MICHAEL, Physici M.D. [facility] 2019-07-13 2019-07-13 JOELLE Dave Multispecia [id number] Univers 13:00:00 13:00:00 t; ALANA HAM M.D. [facility] of Radha WARNER Mario gardner Physicmaryanne [facility] 2019-06-23 2019-06-23 Appointmelina MARCEMILIANO, [facility] [id number] Univers 11:15:00 11:15:00 t; josé miguel CARLTON M.D. [place] Adrien CARLTON M.D. [facility] 2019-05-19 2019-05-19 AppointJOELLE Santiago Orthopedics 58 [id number] Univers 08:00:00 08:00:00 t; ISAI [facility] ty of JOCELINE VILLANUEVA [employer] [place] ISAI, [facility] Physi [facility] [address] 2019-05-08 2019-05-08 Outpatient Landy, MHSL MHSL [id number] 06:14:00 17:10:[address] [place] [address] 2019-05-08 2019-05-08 [facility] JOELLE BILL Orthopedics [id number] Univers 11:00:00 11:00:00 t; lilly CARLTON [facility] ty liberty BILL M.D. [facility] Flo CARLTON M.D. [facility] 2019-05-07 2019-05-07 Outpatient RAFAEL Elaine OIH [id number] 12:36:00 23:59:00 Aditya Guadalupe 2019-05-04 2019-05-04 [facility] DARIUSZ, [facility] [id number] Univers 11:00:00 11:00:00 t; Anish VALADEZ M.D. [place] Adrien VALADEZ M.D. [facility] 2019-04-29 2019-04-29 [facility]patient [facility] [id number] 15:49:00 15:49:00 Brandt Clarke 2019-04-24 2019-04-24 Outpatient RUDY KaurP MHOIP [id number] 11:04:00 23:59:00 [facility] 04 2019-04-20 2019-04-20 Appointmelina CHAU [facility] [id number] Univers 13:00:00 13:00:00 t; OTTONIEL CHAU it y of MOUSTAFA, M.D. [place] M.D. Physici ans 2019-04-16 2019-04-16 Appointmen ELIZABETJOELLE Multispecia 5 [id number] Univers 13:00:00 13:00:00 t; Radha CERVANTES lty - ity of Prosper MCNEALshAlfonso barton M.D. [address] Physi ci ans 2019-04-14 2019-04-14 Appointmen JOELLE BILL Orthopedics [id number] Univers 14:15:00 14:15:00 t; lilly CARLTON [facility], Orthopedic Phys ici M.DShahla and [facility] 2019-04-13 2019-04-13 Appointmen DOTTY [facility] [id number] Univers 12:00:00 12:00:00 t; HECTOR STORM ity o f SHAOJIE, M.D. [place] Radha Physici ans 2019-04-09 2019-04-09 Outpatient Elizabet, MHSE MHSE [id number] 06:10:00 08:28:00 Zeferino Cash 2019-04-09 2019-04-09 Appointmen ELIZABET [facility] Multispecia 5 [id number] Univers 07:00:00 07:00:00 t; Radha CERVANTES lty - ity of [facility], Alfonso CERVANTES M.D. [address] Physi ci ans 2019-04-09 2019-04-09 Outpatient MHSE MHSE [id number] MH 06:10:00 06:10:00 [facility] 2019-03-03 2019-04-01 Outpatient Cari, MHC [facility] [id number] 11:36:00 23:59:00 Tadeo S 00 2019-03-27 2019-03-27 Outpatient Landy, MHOIP MHOIP [id number] 15:37:00 23:59:00 Brandt Clarke 2019-03-26 2019-03-26 Appointmen JOELLE KAUR Multispecia [id number] Univers 11:30:00 11:30:00 t; alex HACKETT VINCENT Garcia [employer] ROXANN Braga Physic i M.D. ans 2019-03-17 2019-03-17 Layla BILL, [facility] [id number] Univers 11:00:00 11:00:00 t; josé miguel CARLTON M.D. [place] Adrien CARLTON M.D. [facility] 2019-03-06 2019-03-06 Outpatient ADONAY MadrigalSE MHSE [id number] 10:49:45 18:58:00 Stanislav O 2019-03-05 2019-03-05 AppointJOELLE Almeida Multispecia [id number] Univers 10:30:00 10:30:00 t; alex BULLOCK, JOCELINE ChengshAlfonso barton, [address] Physici LUMBER STRAIGHTENED [facility] 2019-03-03 2019-03-03 [facility] [id number] [facility] 11:36:00 11:36:00 2019-03-03 2019-03-03 Appointmelina ALCALA [facility] [id number] Univers 11:30:00 11:30:00 t; TADEO ALCALA i ty of HARINDER, M.D. [place] M.D. Physici [facility] 2019-02-10 2019-02-10 Outpatient Elizabet, OIP MHOIP [id number] 10:19:00 23:59:00 Zeferino F 2019-02-10 2019-02-10 JOELLE López Orthopedics [id number] Univers 13:45:00 13:45:00 t; Darlene CARLTON M.D. [facility] 2 [place] Adrien CARLTON M.D. ans 2019-02-05 2019-02-05 [facility] JOELLE STORM Multispecia [id number] Univers 14:00:00 14:00:00 t; HECTOR STORM lty - ity o f SHAOJIE, M.D. Internation Tim martin M.D. [facility] Phys [facility] ans 2019-01-30 2019-01-30 Outpatient Vincent, MHOIP MHOIP [id number] 13:41:00 23:59:00 Farokh 01 2019-01-29 2019-01-29 AppointJOELLE Krishnapecia [id number] Univers 15:30:00 15:30:00 t; lt ROXANNy - ity of VINCENT Garcia [employer] ROXANN Braga Physic i M.D. ans 2019-01-29 2019-01-29 Appointmen JOELLE KAUR UTP [id number] Univers 15:00:00 15:00:00 t; Dede HACKETT M.D. [facility] Thony HACKETT i, M.D. [facility] 2019-01-23 2019-01-23 Appointmen JOELLE MCNEAL Multispecia 5 [id number] Univers 14:00:00 14:00:00 t; Radha CERVANTES lty - [facility] M.[facility]. [address] Physi ci ans 2019-01-18 2019-01-19 [facility] [id number] 18:00:00 06:00:00 Ruckshanda 2019-01-14 2019-01-14 Appointmen COREY HOBSON UTP Multispecia [id number] Univers 13:00:00 13:00:00 t; JOCELINE HOBSON lty - ity o f JOCELINE NICOLE [facility] ans 2019-01-14 2019-01-14 Appointmen JOELLE CHAPA Non-Invasiv [id number] Univers 10:00:00 10:00:00 t; LARRY CHAPA e - [place] [facility] 2019-01-14 2019-01-14 Appointmen DICKSON CHAPA [facility] UTP [id number] Univers 09:00:00 09:00:00 t; josé miguel CHAPA of [facility] Physici ans 2019-01-14 2019-01-14 Appointmen JOELLE BUENROSTRO Pulmonary & [id number] Univers 08:30:00 08:30:00 t; CASTILLO BUENROSTRO M.D. Sleep ity of Jayne CHONG M.D. Physici ans 2019-01-13 2019-01-13 Outpatient IKE Kaur OIB [id number] 10:45:00 23:59:00 [facility] 2019-01-13 2019-01-13 Appointmen VINCENT, [facility] Multispecia [id number] Univers 08:00:00 08:00:00 t; alex HACKETT M.D., [place] , ROXANN, [address] Thony madden M.D. ans 2018-12-29 2018-12-29 Appointmen JAZLYN COREY, JOELLE Multispecia [id number] Univers 13:00:00 13:00:00 t; JOCELINE HOBSON ltmyla - josé miguel o f JOCELINE NICOLE Internation [facility] ans Results Test Description Test Time Test Comments Results Result Sourc e Comments HEMATOLOGY 2019-12-24 94 [facility] 16:22:00 [place] HEMATOLOGY 2019-12-24 128 [facility] 16:22:00 [place] HEMATOLOGY 2019-12-24 68 [facility] 16:22:00 [place] IMMUNOLOGY 2019-12-24 8.1 [facility] 16:22:00 Richard IMMUNOLOGY 2019-12-24 1.7 [facility] 16:22:00 Richard IMMUNOLOGY 2019-12-24 <1.6 [facility] 16:22:00 [place] IMMUNOLOGY 2019-12-24 <0.2 [facility] 16:22:00 [place] IMMUNOLOGY 2019-12-24 3.7 [facility] 16:22:00 [place] IMMUNOLOGY 2019-12-24 <1.4 [facility] 16:22:00 [place] IMMUNOLOGY 2019-12-24 <0.2 [facility] 16:22:00 Richard IMMUNOLOGY 2019-12-24 Negative [facility] 16:22:00 (12/24/19 11:22 Richard AM) CARDIAC ENZYMES 2019-12-23 <0.02 [facility] 23:45:00 Richard CHEM PANEL 2019-12-23 83 [facility] 23:45:00 [place] CHEM PANEL 2019-12-23 18 [facility] 23:45:00 Richard CHEM PANEL 2019-12-23 0.96 Memorial 23:45:00 Richard CHEM PANEL 2019-12-23 140 [facility] 23:45:00 [place] CHEM PANEL 2019-12-23 4.1 [facility] 23:45:00 [place] CHEM PANEL 2019-12-23 107 [facility] 23:45:00 Richard CHEM PANEL 2019-12-23 25 [facility] 23:45:00 Richard CHEM PANEL 2019-12-23 9.1 [facility] 23:45:00 Richard CHEM PANEL 2019-12-23 12.1 [facility] 23:45:00 [place] CHEM PANEL 2019-12-23 75 [facility] 23:45:00 [place] ENDOCRINOLOGY 2019-12-23 Negative [facility] 23:45:00 *NA*(12/23/19 [place] 6:45 PM) HEMATOLOGY 2019-12-23 10.3 [facility] 23:45:00 Richard HEMATOLOGY 2019-12-23 4.95 [facility] 23:45:00 [place] HEMATOLOGY 2019-12-23 14.5 [facility] 23:45:00 Richard HEMATOLOGY 2019-12-23 43.8 [facility] 23:45:00 [place] HEMATOLOGY 2019-12-23 88.5 [facility] 23:45:00 [place] HEMATOLOGY 2019-12-23 23:45:00 Test Item Value Reference Range Interpretation Comme nts MCH (test code = MCH) 29.2 pg 27.0-31.0 [facility] GwrwgjnGNJHIGOLRL8084-59-91 23:45:0033.0[facility]annHEMATOLOGY 2019-12-23 23:45:0014.0[facility] LrhwcjhIENMJWSCNY6691-24-72 23:45:97336Yjyseocu CrlugmbEGOQLWAEVK0421-62-08 23:45:007.6[facility] EvmvustTOERDROBIM5540-69-11 23:45:00 Test Item Value Reference Range Interpretation Comments PT (test code = PT) 13.7 s 12.0-14.7 [facility] MdnkohgYIWRTWBEAB9831-89-13 23:45:00 Test Item Value Reference Range Interpretation Comments INR (test code = INR) 1.05 1 0.85-1.17 [facility] ShuxjtsXTHFSOMVSR9437-14-91 23:45:00 Test Item Value Reference Range Interpretation Comments PTT (test code = PTT) 28.0 s 22.9-35.8 [facility] FrjzmipCEUCFTYTGU4908-29-28 23:45:0066.1[facility] HermannHEMATOLOGY 2019-12-23 23:45:0024.3[facility]orial GfmnujsONJCLBIUJT6557-79-77 23:45:008.2[facility]orial ZsxkqkfBWFHTFVOZV6673-54-41 23:45:000.3[facility] RfuviywXRMBGUBMAM6192-73-68 23:45:001.1[facility] ChrgbcjQOKXAFUAET8162-49-68 23:45:006.8[facility] Richard CZJEGJRIXW1080-76-12 23:45:002.5[facility] MsuehoaAYOXRMUHKC5595-27-27 23:45:000.8 Memorial FbejuanHYRMATAMCU1420-38-48 23:45:000.1[facility] HermannURINE CHEM 2019-11-27 12:04:00Negative (11/27/19 7:04 AM)[facility] QqrgoccMXONKUGBNI2243-00-56 16:20:00Not Detected (11/24/19 11:20 AM)[facility] HermannCHEM BXCJF5985-00-78 17:28:0095[facility] HermannCHEM DFWNJ4044-59-47 17:28:0023Mem[facility] HermannCHEM PITKH4256-48-92 17:28:000.96[facility] HermannCHEM HYKYX8885-49-19 17:28:90609 [facility] HermannCHEM TSCRX3291-34-12 17:28:004.7[facility] HermannCHEM PANEL 2019-08-07 17:28:89243Bwaygdfs HermannCHEM RWSVN6841-54-97 17:28:0026[facility] HermannCHEM MDTHJ0823-26-85 17:28:009.0[facility] HermannCHEM WTKAU8622-72-12 17:28:007.8[facility] HermannCHEM NSBIK6552-64-03 17:28:003.4[facility] HermannCHEM VZKWQ0984-39-04 17:28:0022[facility] HermannCHEM JCHBN7196-83-06 17:28:0015 [facility] HermannCHEM OAZRQ9666-88-99 17:28:0084Mem[facility] HermannCHEM PANEL 2019-08-07 17:28:000.3[facility] HermannCHEM CPHED3528-98-54 17:28:008.7[facility] HermannCHEM NZRRU6669-33-35 17:28:00 Test Item Value Reference Range Interpretation Comments B/C Ratio (test code = B/C Ratio) 24 1 6- [facility] HermannCHEM ZWSHO4497-61-75 17:28:004.4[facility] HermannCHEM PANEL 2019-08-07 17:28:00 Test Item Value Reference Range Interpretation Comments A/G Ratio (test code = A/G Ratio) 0.8 1 0.7-1.6 [facility] HermannCHEM XVAVU8945-40-73 17:28:0075[facility] HermannHEMATOLOGY 2019-08-07 17:28:009.5[facility]orial NjafinrOFQHNECEXN1858-52-44 17:28:004.68Memorial YkedfsgJZDKWVSOWZ4460-04-00 17:28:0014.2[facility]orial TvqzpqnMVLYTVXIAS5708-45-55 17:28:0042.3[facility]orial YimkqhqTODQQWHFJU8947-00-82 17:28:0090.4[facility] [place] DTGIYIXOOF2646-54-37 17:28:00 Test Item Value Reference Range Interpretation Comments MCH (test code = MCH) 30.4 pg 27.0-31.0 Memorial VrfppoaDBVYXVGLLI0927-68-53 17:28:0033.6[facility] HermannHEMATOLOGY 2019-08-07 17:28:0012.9[facility] KpowxpeVOWAKLSFWU4214-28-98 17:28:62940Xbibwcyw FvjclbeACDDPQQUTT1308-93-19 17:28:008.1[facility]orial UmdgpffMKHCEJQEVQ8798-24-05 17:28:0021[facility] PyuxmryMQLNCBBBTP3599-20-46 17:28:0070.9[facility] [place] OBMTPAWMSW0292-17-54 17:28:0020.9[facility]orial DjuwmzyYIIAJTYCJQ4417-44-28 17:28:00 7.2Memorial JcsbzuyCUCUPDPSHH0566-16-92 17:28:000.1[facility] HermannHEMATOLOGY 2019-08-07 17:28:000.9[facility]orial KqvyfdbIUMBFIJXAX7293-89-70 17:28:006.8[facility]orial SjlcnmxUNINNCAWFK4616-62-15 17:28:002.0[facility]orial FrwnqxlQOJZPLLUDP3798-50-27 17:28:000.7[facility]orial KgqqfeaVYFNFVAZTM3065-59-72 17:28:000.1[facility] [place] TEUWTQANTG8992-73-95 17:28:0029.7Memorial HermannPost Op Promis 29 Survey 2019-06-10 13:33:12 Test Item Value Reference Range Interpretation Comments Pain Interference: (test code = Pain 73.7 1 N Interference:) Pain Intensity: (test code = Pain 53.7 1 N Intensity:) Physical Function: (test code = 21.3 1 N Physical Function:) Satisfaction Role: (test code = 35.6 1 N Satisfaction Role:) [facility] WPZN2702-06-71 14:18:00Negative (05/08/19 8:18 AM)[facility] HermannCHEM GNBAR6237-84-77 14:09:72682Xefispws HermannCHEM NACUX4721-28-09 14:09:0018[facility] HermannCHEM LEBGX4251-47-11 14:09:001.11 [facility] HermannCHEM LVAEC5681-62-96 14:09:93006Pbovxdtk HermannCHEM PANEL 2019-05-08 14:09:004.5[facility] HermannCHEM NCLMY0077-77-04 14:09:91816Idsrlbso HermannCHEM TLNKG4240-56-36 14:09:0021Mem[facility] HermannCHEM LXFPN2758-25-10 14:09:009.0[facility] HermannCHEM GPQHS1910-38-72 14:09:0013.5[facility] HermannCHEM ODWND1353-68-62 14:09:0063Memorial HermannMR Shoulder wo contrast 76989 2019-04-24 11:13:00PROCEDURE INFORMATION:Exam: MR Right Upper Extremity Joint Without Contrast, ShoulderExam date and time: 04/24/2019 11:27 AMClinical history: 38 years old, female; Pain in right shoulder; Additionalinfo: M25.511 pain in right shoulder/m25.511 pain in right shoulderTECHNIQUE:Imaging protocol: MR of the Right upper extremity without contrast. Examfocused on the shoulder.COMPARISON:No relevant prior studies available.FINDINGS:ROTATOR CUFF AND ASSOCIATED STRUCTURESRotator cuff: There is a low grade, partial-thickness articular surface tear ofthe infraspinatus insertion. This measures about 5 mm in AP dimension andinvolves about than 30% of the tendon thickness. Mild supraspinatus andinfraspinatus tendinosis. No high grade partial or full thickness rotator cufftear.Bursa: No bursal effusion or thickening is seen.Musculature: There is no muscular tear, contusion, or atrophy.Acromioclavicular joint: There is minimal degenerative change of the AC joint. Acromion has a type II undersurface.OSSEOUS STRUCTURESNo acute fracture. There is a lobulated T2 hyperintense lesion in the proximalhumerus, measuring approximately 2.6 x 1.7 x 1.6 cm. This is most likely achondroid matrix lesion. No significant perilesional edema. Scattereddegenerative marrow edema and cystic changes.LONG BICIPITAL TENDONThe biceps tendon is normally situated within the bicipital groove. No completeor partial biceps tendon tear is p resent.GLENOHUMERAL JOINTJoint fluid: There is a trace glenohumeral joint effusion.Cartilage and Bone: No definitive chondral defects.Labrum: No definitive labral tear.Other support structures: No capsular or ligamentous abnormality is seen.IMPRESSION:1. Locally, partial-thickness articular surface tear of the infraspinatusinsertion. Mild diffuse supraspinatus and infraspinatus tendinosis.2. Minimal AC joint arthrosis.3. Probable low-grade/nonaggressive chondroid matrix lesion in the proximalhumerus.Meliton Rush MD On 04/24/2019 13:45:44; [id number]--Lrra by: Meliton Rush MDDictated Date/time: 04/24/19 13:45Electronically Signed by: Meliton Rush MD 04/24/1913:45FINAL REPORTUnBlue [facility] PhysiciansE[facility] FDWB4029-14-75 11:47:00Negative (04/09/19 6:47 AM)[facility] HermannCHEM EILXX2582-29-75 20:16:00 128[facility] HermannCHEM VTFUR3032-76-49 20:16:0020[facility] Centerriwi HermannCHEM PANEL 2019-03-06 20:16:001.01[facility] HermannCHEM OWNFZ2374-11-45 20:16:38428Gaogqgwm HermannCHEM NNJTW9868-03-81 20:16:003.7[facility] HermannCHEM UGEFH0512-60-89 20:16:56791Xctsrwhe HermannCHEM UFQZN7880-54-45 20:16:0024Mem[facility] HermannCHEM RSTNT6720-25-99 20:16:008.4[facility] HermannCHEM THHDR2786-69-77 20:16:006.8 [facility] HermannCHEM GERKS0816-24-55 20:16:003.2[facility] HermannCHEM PANEL 2019-03-06 20:16:0021Mem[facility] HermannCHEM QLYFO3669-53-91 20:16:0012Mem[facility] HermannCHEM OQSTS3808-59-15 20:16:0062Mem[facility] HermannCHEM TLSOX8360-50-83 20:16:000.3[facility] HermannCHEM QWBDS8461-20-62 20:16:0010.7[facility] HermannCHEM FOQAQ8367-26-84 20:16:00 Test Item Value Reference Range Interpretation Comments B/C Ratio (test code = B/C Ratio) 20 1 6-25 [facility] HermannCHEM GZYVH8593-69-31 20:16:003.6[facility] HermannCHEM PANEL 2019-03-06 20:16:00 Test Item Value Reference Range Interpretation Comments A/G Ratio (test code = A/G Ratio) 0.9 1 0.7-1.6 [facility] HermannCHEM TOYEK6229-53-38 20:16:0071Mem[facility] HermannENDOCRINOLOGY 2019-03-06 16:49:00Negative *NA*(03/06/19 11:49 AM)[facility] HermannHEMATOLOGY 2019-03-06 16:49:007.8[facility] OnnnzccXRCTSQJPIB7746-56-12 16:49:004.19[facility] AjlmyzcQUIXOKIHQK0024-50-10 16:49:0013.4[facility] IpbbovaTEBVRQXMRY0581-82-92 16:49:0040.1[facility] IzmfghvEDXZEVONEX2897-32-03 16:49:0095.7[facility] [place] BYWIIZAOUF2726-26-16 16:49:00 Test Item Value Reference Range Interpretation Comments MCH (test code = MCH) 32.0 pg 27.0-31.0 [facility] XgqhyuwFGDBGTBKBB3033-96-34 16:49:0033.4[facility] HermannHEMATOLOGY 2019-03-06 16:49:0013.4[facility] HqaazwwSGIRXIOCBI3318-71-49 16:49:0094[facility] PqqizkcCDZGSZPSSB5073-66-00 16:49:008.5[facility] RhlzdmtUERABLWPPZ0071-95-08 16:49:0067.9[facility] AvtgprqCRYZQMXJHM8136-15-72 16:49:0024.2[facility] Richard NGWUQNNZKV9737-97-68 16:49:006.4[facility] XlikdcdDYTWYSCVWA9694-87-09 16:49:000.7 Memorial CwcvkmaZANXAGWXHZ4919-78-38 16:49:000.8[facility] HermannHEMATOLOGY 2019-03-06 16:49:005.3[facility] XtfpdynRTYTIYLLDG0823-72-88 16:49:001.9[facility] VptoawxEINODIWQXR9546-04-52 16:49:000.5[facility] VkpacxuZGEMQLWQNX7321-23-09 16:49:000.1[facility] VnqlgydSTWKXFWZXJ7360-91-11 16:49:000.1[facility] NFGBQUZTUJ7570-76-52 18:09:009.1[facility] LkhexuqZQPJPGNYSD4997-32-90 18:09:00 4.54[facility] XghlipdHRBGTZSJLS9795-91-56 18:09:0014.4[facility] 2019-03-03 18:09:0042.6[facility] OrdfcnjZYIDDZDSQQ1798-96-68 18:09:0093.8[facility] JhkgtpkCDBJZXWNFJ9691-12-40 18:09:00 Test Item Value Reference Range Interpretation Comments MCH (test code = MCH) 31.8 pg 27.0-31.0 [facility] IckluegPJUAHKGBYJ2901-50-11 18:09:0033.9[facility] 2019-03-03 18:09:0013.5[facility] UcbxhmzVFOKYKUCGF3196-15-32 18:09:53539Ukiswklw JkktualGCKQUVNEVR4551-07-17 18:09:007.1[facility] VxdfrgjCWRTWADHXX9151-97-70 18:09:0062.0[facility] EbxqroiNZNWAIINCA1217-86-87 18:09:0027.7[facility] TOBSZOQDIQ9758-34-47 18:09:008.6[facility] AhtkyycZVAFCZPCYB7968-68-07 18:09:000.6 [facility] SbijyyfLEFDPFQMBQ9494-23-36 18:09:001.1[facility] 2019-03-03 18:09:005.6[facility] QmnpfbuHUZLMSDYTZ4982-90-43 18:09:002.5[facility] AganqhsMQFRQVPHVW4828-68-33 18:09:000.8[facility] GopfipjOPLURNBJZP3952-20-32 18:09:000.1[facility] ZscrhtgMCBIRMOALA0650-33-28 18:09:000.1[facility]] CULTURE, URINE, ZFEMZLT8334-00-09 12:00:00 Test Item Value Reference Range Interpretation Comments CULTURE (test code = See Comment CULTURE , URINE, CULTURE) ROUTINE LYUBOV RO NUMBER: [id number] TEST STATUS: FINAL SPECIMEN SOURCE: URINE , CLEAN CATCH SPECIMEN QUALITY: ADEQU ATE RESULT: Multiple organi sms present, each l ess than 10,000 CFU/mL . These organisms, comm only found on external and internal genita steven, are considered to be colonizers. No further testing perform ed. [facility][] DRUG SCREEN,COMPREHENSIVE (URINE)2019-02-11 14:49:00 Test Item Value Reference Interpretation Comments Range PLEASE NOTE: See Below * These results are for (test code = medical treatme nt only. * PLEASE NOTE:) * Analysis was performed as non-forensic te sting. * URINE RESULTS DRUG(S) A (test code = DETECTED: URINE RESULTS) BENZODIAZEPINES BENZODIAZEPINES A BY IMMUNOASSAY BY IMMUNOASSAY (test code = BENZODIAZEPINES BY IMMUNOASSAY) See Comment See Comment A PATIENT RESULTS ARE (test code = See INDICATED A SCARLET. URINE WAS Comment) TESTED FOR THE FOLLOWING: ANALGESICS BARBITURATES PHENCYCLIDINEAN TIARRYTHMICS BENZODIAZE PINE METABS. SEDATIVES/HYPNO TICSANTICONVU LSANTS CAN NABINOIDS STIMULANTSANTID EPRESSANTS COCAINE METAB OLITE VOLATILESANTIHI STAMINES OPIATES/NARCOT ICSANTIPSYCHO TICS MUSC LE RELAXANTS PLEASE REFER TO CURRENT DIRECTORY OF SE RVICES FOR SPECIFICS ONWHI CH DRUGS ARE TESTED. [facility] Abdomen Doppler [id number] 11:02:00Patient Name: TODD CISNEROS: 1980; Age: 38 years y/o FemaleMR: [id number] ULTRASOUND with Doppler studiesHistory: splenomegaly Technique: The abdomen was evaluated with dynamic ultrasound scanning. Duplex(grayscale, color-flow, and spectral Doppler) evaluation of the splenic artery,splenic vein, inferior vena cava, abdominal aorta, portal veins, hepaticarteries, and hepatic veins was performed.Prior studies reviewed: noneFINDINGS:Gallbladder: Status post cholecystectomy.* Commonbile duct: Within normal limits, 4 mm in diameter.* Intrahepatic ducts: Not dilated.* Liver: Normal in size and echogenicity. No focal lesions are seen.* Pancreas: Not well visualized due to overlying bowel gas. * Spleen: Normal in size. The spleen measures 8.2 x 3.8 cm in maximaldimensions.* Kidneys: The right kidney has been removed. There is mild compensatoryhypertrophy of the left kidney. No focal lesions are seen involving the leftkidney.The left kidney measures 13.5 x 7.6 x 6.3 cm. The cortex measures 2.4 cm inthickness.* Aorta: Normal in diameter. 2.2 cm in maximal diameter. There is no evidenceof an abdominal aortic aneurysm.* Inferior vena cava: Seen in segments and appear to be patent. ( )Doppler studies demonstrate no significant abnormalities. Good arterial flow isdemonstratedin the hepatic arteries, splenic artery and abdominal aorta. Thereis normal hepatopedal portal venous flow and patency of the portal venousbranches. The splenic vein is patent. The hepatic veins are pat ent.IMPRESSION: ( )1. Status post cholecystectomy.2. Status post right nephrectomy.3. Normal Dopplerstudies as described above.SL: [id number]--Oizo by: Kwaku Hedrick MDDictated Date/time: 02/10/19 15:13Electronically Signed by: Kwaku Hedrick MD 02/10/1915:20FINAL REPORT [facility]] CALPROTECTIN, [id number] 14:43:01 Test Item Value Reference Range Interpretation Comments Calprotectin (test 30 ug/g 0-120 Concentra tion code = Calprotectin) Interpr etation Follow-Up<16 - 50 ug/g Normal None>50 -120 ug/g B orderline Re-evaluate in 4-6 weeks >120 u g/g Abnormal Repeat as clinically indicatedPerfor med At: BN [facility] [id number] [facility] [place]ier hind[place], [place] [id number] ra Shanthi SANDOVAL Ph:[phone] [facility] Clavicle Bilateral [id number] 14:03:00 Clinical Indication: - M89.8X1 Other specified disorders of bone, shoulder,M79.18 Myalgia, other site, M25.50 Pain in unspecified joint, M94.0 Chondrocostal junction syndrome [Tietze]; claviclepain for 5 daysComparison: NoneTECHNIQUE: AP and axial views of the bilateral claviclesFINDINGS: No acute fracture or malalignment is identified. Thesternoclavicular joints are within normal limits as are the acromioclavicularjoints.No soft tissue abnormality is identified.IMPRESSION: No acute abnormality.SL: [id number] by: Oj Boswell MDDictated Date/time: 01/30/19 14:33Electronically Signed by: Oj Boswell MD 01/30/1914:34FINAL REPORTUnBlue [facility]] HEPATIC FUNCTION [id number] 14:45:01 Test Item Value Reference Range Interpretation Comments Total Protein (test 7.5 g/dl 6.4-8.4 code = 2885-2) Albumin Lvl (test 3.9 g/dl 3.5-5.0 code = 1751-7) Bili Total (test 0.5 mg/dl 0.2-1.3 code = 1974-) Bilirubin Direct 0.1 mg/dl 0.0-0.3 (test code = 1967-) Bilirubin Indirect 0.4 mg/dl 0.0-1.0 (test code = 1970-) Alk Phos (test code 53 u/l 39-136 The pedi atric reference = 1783-0) ranges for this test represent a CLSI-basedtrans ference of the CALIPER rohan abase of pediatric refer ence intervals to eSiemens [place] analyzer (Clinical Biochemistry 46 (2013): 9590-7545). [facility] has not internally validated these reference ranges and therefore they should be used only in th e context of a thoroughcl inical assessment. AST (test code = 11 u/l 0-37 70029-4) ALT (test code = 20 u/l 0-65 1743-4) Globulin (test code 3.6 g/dl 2.7-4.2 = 80514-9) A/G Ratio (test 1.1 0.7-1.6 code = 1759-0) [facility][H] Celiac Pnl w/Rflx Endomy Ab [id number] 14:45:01 Test Item Value Reference Range Interpretation Comments IgA Lvl (test code = 2458-8) 234.0 mg/dl 68.0-378.0 Gliadin (Deamidated Peptide)IgA <0.2 <=14.9 Ab (test code = 29702-3) Gliadin (Deamidated Peptide)IgG 0.6 U/ml <=14.9 Ab (test code = 44273-4) Tissue Transglutaminase (tTG) IgA <0.5 <=14.9 (test code = 06055-1) Tissue Transglutaminase (tTg) IgG <0.8 <=14.9 (test code = 78824-0) [facility][H] LUNDBERG [id number] 14:45:01 Test Item Value Reference Range Interpretation Comments Bili Total (test code 0.5 mg/dl 0-1 = 1975-2) ALT (test code = 20 u/l 0-65 1743-4) AST (test code = 11 u/l 0-37 76658-4) Fibrosis Score (test 0.04 0.00-0.21 code = Fibrosis Score) Fibrosis Stage (test Comment F0 - No fibrosis code = Fibrosis Stage) Steatosis Score (test 0.35 0.00-0.30 code = Steatosis Score) Steatosis Grading Comment < 0.30 = S 0 - No (test code = Steatosis0.30 t o 0.38 = Steatosis Grading) S0 - S10. 38 to 0.48 = S1 - Minimal Steatosis0.48 t o 0.57 = S1 - S20.57 to 0.67 = S2 - Moderate Steatosis0.67 t o 0.69 = S2 - S3 > 0.69 = S3 - Marked or Severe Steatosis LUNDBERG Score (test code 0.25 >0.25 = LUNDBERG Score) LUNDBERG Grade (test code Comment N0 - N ot LUNDBERG = LUNDBERG Grade) A 2 Macroglob (test 224 mg/dl 110-276 code = 83495-8) Haptoglobin; Above 208 mg/dl 34-200 High Threshold (test code = 25407-6) Apolipoprotein A-1 170 mg/dl 116-209 (test code = Apolipoprotein A-1) GGT (test code = 18 {iu/l} 0-60 2324-2) Chol (test code = 137 mg/dl 346-960 0549-3) Glucose Lvl (test 96 mg/dl 65-99 Adult refe rence range code = 2345-7) values reflec t the clinical guidel inesof the [employer] Di abetes [employer]. Trig; Above High 182 mg/dl 0-149 Threshold (test code = 2571-8) LUNDBERG Interp (test Comment Quantitati ve results of code = LUNDBERG Interp) 10 bioch emicals in combination wit taye, gender, height, and weight, are abdoul lyzed using acomputat ional algorithm to pr ovide a quantitative surrogatemarker (0.0-1.0) of li antoni fibrosis (Metav ir F0-F4), hepaticsteatosi s (0.0-1.0, S0-S3 ), and Non-Alcoholic Steato-Hepatiti s (LUNDBERG) (0.0-0.75, N0-N 2). The absence of steatosis(S<0.3 8) precludes the d iagnosis of LUNDBERG.Fibrosi s marker: In a s tudy of 171 Non-Alcohol ic FattyLiver Dise ase (NAFLD) patient s where 23% had significantNAFL D fibrosis (Metav ir F2-F4) and 11% had cirrhosis byliv er biopsy, a fibro sis result of >0.3 yielded asensitivity of 83% and a specificity o f 78% for thedetectio n of significant fibrosis(1).Remigio atosis Marker: In a population of 7 44 patients (583 H CV,18 HBV, 69 NAFLD, and 74 alcoholic disea se patients), wher e36% had significant remigio atosis (>5%) on a live r biopsy, asteato sis score >0.5 had a sensitivity of 71% and aspecificity of 72% for identification of significantstea tosis(2) .LUNDBERG marker: In a population of 2 57 NAFLD patients, where 62% had at least some N FARIDEH by liver biopsy, a prediction ofNA SH had a sensitivity of 88% for identifying DANIAL H and aspecificity of 50%(3). Fibrosis Scoring Comment <0.21 = Sta ge F0 - No (test code = Fibrosis fibros is0.21 - 0.27 = Scoring) Stage F0 - F10. 27 - 0.31 = Stage F1 - Portal fibrosis 0.31 - 0.48 = Stage F1 - F20.48 - 0.58 = Stage F2 - Bridging f ibrosis with few septa0 .58 - 0.72 = Stage F3 - Bridging fibros is with many septa0.72 - 0.74 = Stage F3 - F4 >0.74 = Stage F 4 - Cirrhosis LUNDBERG Scoring (test Comment 0.25 = N0 - Not code = LUNDBERG Scoring) NASH0.5 0 = N1 - Borderline or p robable NASH0.75 = N2 - LUNDBERG LUNDBERG Limitations Comment LUNDBERG FibroS ure is (test code = LUNDBERG recommende d for Limitations) patients with suspectednon-al coholic fatty liver dis ease. It is not recommendedfor patients with other live r diseases. It i s also notrecommended in patients with G ilbert Disease, acutehemolysis, acute viral hepatitis , drug induced hepatitis,tobin ic liver disease, autoim mune hepatitis and/o r extra-hepatic cholestasis. A ny of these clinical situations mayl ead to inaccurate erwin titative predictions of fibrosis. LUNDBERG References (test Comment This t est was developed code = LUNDBERG and its perform ance References) characteristics determinedby [facility]. It has not been cleared or approved by the Food and DrugAdminis tration. The FDA has de termined that such clear ance orapproval is n ot necessary.For q uestions regarding this report please contact [employer] service at . Referenc es:1. Ratziu V. et al. Diagnostic Valu e of Biochemical Mar kers (FibroTest) for the prediction of L iver Fibrosis in p atients with Non-Alcoho lic Fatty Liver Dis ease. BMC Gastroent erology 2006; 6:6.2. Po Keyshawn lemons. et al. The Diagnostic Valu e of Biomarkers (S teato Test) for the Prediction of L iver Steatosis. Comparative Hep atol. 2005; 4:10.3. P Keyshawn crump, Babs Pelaez, et al. Diagnost ic value of biochemica l markers (LUNDBERG T EST) for the prediction of non alcohol steato hepatitis in pa tients with non- alc oholic fatty liver dis ease. BMC Gastroenter ology 2006; 6:34 doi:10.1186/147 1-230X-6 -34.Performed A t: [facility] [address] [id number] susana Maki MD Ph:[phone] [facility][H] CK [id number] 10:21:01 Test Item Value Reference Range Interpretation Comments Creatine Kinase Total 37 u/l 24-173 (test code = Creatine Kinase Total) CK Macro Type 2 (test 0 % Not Observed code = CK Macro Type 2) Creatine Kinase MM 100 % 97-100 (test code = Creatine Kinase MM) CK Macro Type 1 (test 0 % Not Observed code = CK Macro Type 1) Creatine Kinase MB 0 % 0-3 (test code = Creatine Kinase MB) Creatine Kinase BB 0 % >0 Performed At: DA [facility] (test code = Creatine Aaron [address] Kinase BB) Bld[address] [place] [id number] wily SORIANO MD Ph:[phone] rformed At: [facility] [address] [place], [place] [id number] Kyle L MD Ph:[phone] [facility][H] Quantiferon Incubationa w/ Reflex to TB Gold [id number] 10:21:01 Test Item Value Reference Range Interpretation Comments Quantiferon Incubation Performed At: H D Incubation (test performed. [facility] code = Quantiferon [address] Incubation) [place], [place] [id number] Domínguez MD Ph:[phone] Quantiferon - TB Negative Negative Performed A t: BN [facility] Plus (test [facility] code = Quantiferon [facility] n1447 - TB Gold Plus) [place], [place] [id number] ra Shanthi SANDOVAL Ph:[phone] [facility][H] Quantiferon Incubationa w/ Reflex to TB Gold [id number] 10:21:01 Test Item Value Reference Range Interpretation Comments Quantiferon Criteria Comment The Vasquez ntiFERON-TB (test code = Gold Plus resul t is Quantiferon determined Criteria) bysubtracting t he Nil value from [facility] TB antigen (Ag) tu be.The mitogen tube se rves as a control fo r the test. Quantiferon - TB1 Ag 0.09 {IU/ml} Value (test code = Quantiferon - TB1 Ag Value) Quantiferon - TB2 Ag 0.06 {IU/ml} Value (test code = Quantiferon - TB2 Ag Value) NIL (test code = 0.08 {IU/ml} NIL) Mitogen - NIL (test >10.00 Performe d At: BN code = Mitogen - [facility] NIL) [address] [id number] ra Shanthi SANDOVAL Ph:[phone] [facility] Shoulder series [id number] 10:49:00EXAM: XR SHOULDER 3 VIEWSDATE: 01/13/2019 10:49 CDTINDICATION: - Z87.39 Personal history of other diseases of themusculoskeletal system and connective tissueCOMPARISON: NoneTECHNIQUE: 3 views of the shoulderLaterality: LeftFINDINGS: No acute fracture or malalignment is identified. No narrowing ofsubacromial space. No joint space narrowing, osteophytes, or cysts.No soft tissue abnormality is identified.IMPRESSION: Normal exam of the left shoulder.--Read by: Erik Foster MDDictated Date/time: 01/13/19 13:48Electronically Signed by: Erik Foster MD 01/13/1913:49FINAL REPORTUnBlue Mountain Hospital PhysiciansXRAY Spine lumbar AP lateral [id number] 10:49:00EXAM: XR LUMBAR SPINE 2 VIEWSDATE: 01/13/2019 10:49 CDTINDICATION: - Z87.39 Personal history of other diseases of themusculoskeletal system and connective tissueCOMPARISON: NoneTECHNIQUE: AP and lateral radiographs of the lumbar spineFINDINGS:. Vertebral body heights and disk heights are maintained.Alignment iswithin normal limits. Diffuse spondylotic changes are seen involving the lowerlumbar spine. Diffuse osteopenia.No soft tissue abnormality is identified.IMPRESSION: No bony abnormality. Normal alignment. Diffuse osteopenia..--Read by: Audie Pardo MDDictated Date/time: 01/13/19 17:49Electronically Signed by: Audie Pardo MD 01/13/1917:50FINAL REPORTUnBlue Mountain Hospital PhysiciansXRAY Spine cervical 2 or 3 view [id number] 10:49:00EXAM: XR CERVICAL SPINE 3 VIEWSDATE: 01/13/2019 10:49 CDTINDICATION: - Z87.39 Personal history of other diseases of themusculoskeletal system and connective tissueCOMPARISON: NoneTECHNIQUE: 3 views of the cervical spineFINDINGS: Vertebral body heights, disk heights and alignment are overallpreserved. No prevertebral or paraspinous soft tissue abnormality isidentified.IMPRESSION:1. No acute abnormality.2. No significant listhesis.--Read by: Audie Pardo MDDictated Date/time: 01/13/19 17:50Electronically Signed by: Audie Pardo MD 01/13/1917:50FINAL REPORTUnBlue Mountain Hospital PhysiciansXRAY Knee 1-2 Views Bilateral [id number] 10:48:00EXAM: XR BILATERAL KNEE 2 VIEWSDATE: 01/13/2019 10:48 CDTINDICATION: - Z87.39 Personal history of other diseases of themusculoskeletal system and connective tissueCOMPARISON: NoneTECHNIQUE: Standing AP and lateral radiographs of both kneesFINDINGS: No fracture, dislocation or other acute bony abnormality isidentified. Joint spaces are preserved in all three compartments.There is no knee joint effusion. No soft tissue abnormality is identified.IMPRESSION: Normal exam of the bilateral knees.--Read by: Erik Foster MDDictated Date/time: 01/13/19 13:29Electronically Signed by: Erik Foster MD 01/13/1913:30FINAL REPORTMountain View Hospital PhysiciansXRAY Hip bilateral w pelvis and both lat hips [id number] 10:48:00EXAM: XR BILATERAL HIP 2 VIEWS AND AP PELVISDATE: 01/13/2019 10:48 CDTINDICATION: - Z87.39 Personal history of other diseases of themusculoskeletal system and connective tissueCOMPARISON: NoneTECHNIQUE: AP and frogleg lateral views of the bilateral hips and a single APview of the pelvis.DISCUSSION: No acute fracture or malalignment is identified. Hip joint spacesare preserved bilaterally. No soft tissue abnormality is identified.IMPRESSION: Normal exam of the bilateral hips.--Read by: Erik Foster MDDictated Date/time: 01/13/19 13:35Electronically Signed by: Erik Foster MD 01/13/1913:37FINAL REPORTUnGunnison Valley HospitalXRAY Chest 2 views [id number] 2019-01-13 10:47:00EXAM: XR CHEST 2 VIEWSDATE: 01/13/2019 10:47 CDTINDICATION: - R06.00 Dyspnea, unspecifiedCOMPARISON: None.TECHNIQUE: PA and lateral chest radiographsFINDINGS:Lines and tubes: None.Lungs and pleura: Low lung volumes with accentuated vascular markings andbibasilar atelectasis.Prominent right basilar opacities.The right mid to upper lung zone and left lung are clear.No pleural effusions or definite pneumothorax.Heart and mediastinum: The cardiac silhouette is normal for technique. Themediastinal contours are normal. Bones: No acute bony abnormality is identified.Soft tissues: Unremarkable.IMPRESSION: * Low lung volumes.* Right basilar opacities may represent a combination of atelectasis orpossible infection in the correct context.* No other consolidations. Consider repeat PA/lateral chest x-rayin 4-8 weeksto reassess.--Read by: Luis A Schumacher MD PHDDictated Date/time: 01/13/19 12:49Electronically Signed by: Luis A Schumacher MD PH 01/14/1912:50FINAL REPORTUnBlue Mountain Hospital [facility]icians[[facility]] URINALYSIS, COMPLETE W/REFLEX TO [id number] 10:10:01 Test Item Value Reference Range Interpretation Comments UA Color (test code = 5778-6) Lucero UA Turbidity; Abnormal (test code Marked Clear A = 39140-4) UA Spec Grav; Above High Threshold 1.032 <=1.030 (test code = 5810-7) UA pH (test code = 5803-2) 5.0 5.0-8.0 UA Protein; Abnormal (test code = 30 mg/dl Negative A 72796-8) UA Glucose (test code = 31150-1) Negative Negative UA Ketones; Abnormal (test code = Trace Negative A 88952-3) UA Bili (test code = 5770-3) Negative Negative UA Blood; Abnormal (test code = Large Negative A 5794-3) UROBILINOGEN (test code = 18900-5) <=1.0 0.1-1.0 UA Nitrite (test code = 5802-4) Negative Negative UA Leuk Est (test code = 5799-2) Negative Negative UA RBC; Above High Threshold (test 10 {/HPF} 0-2 code = 29974-3) UA WBC; Above High Threshold (test 8 {/HPF} 0-5 code = 63803-0) UA Bacteria (test code = 07864-6) Few None Seen UA Mucus; Abnormal (test code = Many None Seen A 8247-9) UA Sq Epi (test code = 53638-3) Occasional Few [facility][] PROTEIN, TOTAL W/CREAT, RANDOM URINE 2019-01-13 10:10:01 Test Item Value Reference Range Interpretation Comments U Creatinine (test 303.00 mg/dl No establ ished code = 2161-8) reference ran ge. Urine Protein Level 51.5 mg/dl No estab lished (test code = 2888-6) referen ce ranges. U Prot/Creat (test 0.17 code = 2890-2) [facility][] HEPATITIS B SURFACE ANTIGEN W/REFL CONFIRM 2019-01-13 10:10:01 Test Item Value Reference Range Interpretation Comments Hepatitis B Surface Antigen (test Negative Negative code = 5195-3) [facility]] HEPATITIS C [id number] 10:10:01 Test Item Value Reference Range Interpretation Comments Hepatitis C Antibody (test code = Negative 21133-8) [facility][] CYCLIC CITRULLINATED PEPTIDE (CCP) AB (IGG) 2019-01-13 10:10:01 Test Item Value Reference Range Interpretation Comments Cyclic Citrulline Peptide Antibody <0.5 <=2.9 (test code = 29724-8) [facility][] Urine Dipstick (In Office)2018-12-29 16:04:00 Test Item Value Reference Range Interpretation Comments Glucose (test code = Glucose) 100 MG/dL LEUKOCYTES (test code = LARGE LEUKOCYTES) NITRITE (test code = 04207-7) POSITIVE UROBILINOGEN (test code = 4.0 E.U./dL 67927-5) PROTEIN (test code = 20771-6) >=300 MG/dL pH (test code = pH) 5.5 URINE BLOOD (test code = 43329-0) SMALL SPECIFIC GRAVITY (test code = >=1.030 2965-2) KETONES (test code = 42602-8) 15 MG/dL BILIRUBIN (test code = 70079-3) MODERATE COLOR URINE (test code = 5778-6) LUCERO APPEARANCE (test code = 5767-9) CLEAR [facility]] URINALYSIS, [id number] 15:10:01 Test Item Value Reference Range Interpretation Comments UA Turbidity; Abnormal (test code Slight Clear A = 68997-3) UA Spec Grav; Above High Threshold 1.040 <=1.030 (test code = 5810-7) UA pH (test code = 5803-2) 5.0 5.0-8.0 UA Protein; Abnormal (test code = 100 mg/dl Negative A 24626-3) UA Glucose (test code = 34190-8) Negative Negative UA Ketones (test code = 52524-8) Negative Negative UA Bili (test code = 5770-3) Negative Negative UA Blood; Abnormal (test code = Small Negative A 5794-3) UROBILINOGEN; Above High Threshold 4.0 mg/dl 0.1-1.0 (test code = 52726-0) UA Nitrite; Abnormal (test code = Positive Negative A 5802-4) UA Leuk Est (test code = 5799-2) Negative Negative UA RBC; Above High Threshold (test 27 {/HPF} 0-2 code = 74449-6) UA WBC; Above High Threshold (test 14 {/HPF} 0-5 code = 67009-2) UA Bacteria (test code = 16142-3) Occasional None Seen UA Mucus; Abnormal (test code = Moderate None Seen A 8247-9) UA Sq Epi; Abnormal (test code = Moderate Few A 55153-1) UA Color (test code = 5778-6) Lucero [facility]] CBC (INCLUDES DIFF/PLT)2018-12-29 15:10:01 Test Item Value Reference Range Interpretation Comments WBC; Above High Threshold (test 10.8 {K/CMM} 3.7-10.4 code = 6690-2) RBC (test code = 789-8) 4.47 {M/CMM} 4.20-5.40 Hgb (test code = 718-7) 14.4 g/dl 12.0-16.0 Hct (test code = 69603-5) 42.7 % 36.0-48.0 MCV (test code = 787-2) 95.6 fL 80.0-98.0 MCH; Above High Threshold (test 32.1 pg 27.0-31.0 code = 785-6) MCHC (test code = 786-4) 33.6 g/dl 32.0-36.0 RDW (test code = 788-0) 13.7 % 11.5-14.5 Platelet (test code = 13864-3) 335 {K/CMM} 133-450 Mean Platelet Volume (test code 8.3 fL 7.4-10.4 = 52838-1) [facility]] [id number] 15:10:01 Test Item Value Reference Range Interpretation Comments Segmented Neutrophils (test code 64.3 % 45.0-75.0 = 75594-4) Monocytes (test code = 15338-4) 7.6 % 2.0-12.0 Lymphocytes (test code = 83906-0) 26.8 % 20.0-40.0 Eosinophils (test code = 73017-0) 0.7 % 0.0-4.0 Basophils (test code = 706-2) 0.6 % 0.0-1.0 Segs-Bands # (test code = 6.9 {K/CMM} 1.5-8.1 15749-9) Lymphocytes # (test code = 2.9 {K/CMM} 1.0-5.5 99128-4) Monocytes # (test code = 61054-6) 0.8 {K/CMM} 0.0-0.8 Eosinophils # (test code = 0.1 {K/CMM} 0.0-0.5 20393-9) Basophils # (test code = 83380-9) 0.1 {K/CMM} 0.0-0.2 [facility][] HIV AB, HIV 1/2, EIA, WITH [id number] 15:10:01 Test Item Value Reference Range Interpretation Comments HIV Ag/Ab 4th Gen Negative Negative HIV test r esults should be (test code = considered posi tive only 82605-0) when both the s creening andthe confirma tory tests are positive. A negative confirmatory te st in patientswith a positive screening test does not exclude HIV inf ection. If clincallywarran svetlana, an HIV RNA quantitativ e test should be order ed. [facility]] CMP [id number] 15:10:01 Test Item Value Reference Range Interpretation Comments Sodium Level 143 {mEq/l} 135-145 (test code = 2951-2) Potassium Level 4.2 {mEq/l} 3.5-5.1 (test code = 2823-3) Chloride Level 107 {mEq/l} 95-109 (test code = 5-0) Carbon Dioxide 25 {mEq/l} 24-32 (test code = 2027-9) AGAP (test code = 15.2 {mEq/l} 10.0-20.0 50741-2) Glucose Lvl; 106 mg/dl 70-99 Adult reference range Above High values reflect the Threshold (test clinical magali delinesof the code = 2345-7) [employer]. Creatinine Lvl 1.10 mg/dl 0.50-1.40 (test code = 2160-0) Blood Urea 21 mg/dl 7-22 Nitrogen (test code = 3094-0) BUN/Creatinine 19 6-25 Ratio (test code = 3097-3) Total Protein 7.1 g/dl 6.4-8.4 (test code = 2885-2) Albumin Lvl (test 3.7 g/dl 3.5-5.0 code = 1751-7) Globulin (test 3.4 g/dl 2.7-4.2 code = 81979-4) A/G Ratio (test 1.1 0.7-1.6 code = 1759-0) Calcium Level 9.3 mg/dl 8.5-10.5 Total (test code = 37821-7) ALT (test code = 47 u/l 0-65 1743-4) AST (test code = 18 u/l 0-37 15375-2) Alk Phos (test 56 u/l 39-136 code = 1783-0) Bili Total (test 0.3 mg/dl 0.2-1.3 code = 1975-) eGFR (test code = 64 The eGFR i s calculated 54320-0) {ML/MIN/1.7} using the CKD-E PI formula. In mos t young, healthyindividu als the eGFR will be >9 0 mL/min/1.73m2. The eGFR declines with a ge. AneGFR of 60-89 may be normal in some population s, particularly th e elderly, forwhom the CKD -EPI formula has not been extensively sneha idated. Use of the eGFR isnot recommended in the following populations:Ind ividuals with unstable c reatinine concentrations, including patient s and those with seri ous co-morbid conditions.Dinorah ents with extremes in mus moris mass or diet.The rohan a above are obtained fr om the National Kidney Disease Education Progr am(NKDEP) which additiona lly recommends that when the eGFR is used in patientswith ex tremes of body mass index for purposes of francheska g dosing, the eGFR should be multiplied by t he estimated BMI. [facility][Q] LIPID PANEL WITH REFLEX TO DIRECT LDL 2018-12-29 15:10:01 Test Item Value Reference Range Interpretation Comments LDL (test code = 91648-3) 36 mg/dl <=99 Chol (test code = 2093-3) 124 mg/dl <=199 Trig; Above High Threshold (test 223 mg/dl <=149 code = 2571-8) HDL Cholesterol; Below Low 43 mg/dl >=61 Threshold (test code = 2085-9) CHD Risk; Below Low Threshold (test 2.88 3.90-5.80 code = 19287-5) VLDL (test code = VLDL) 45 [facility]] TSH, 3RD GENERATION W/REFLEX TO FT4 2018-12-29 15:10:01 Test Item Value Reference Range Interpretation Comments TSH (test code = 39762-6) 2.550 {uIU/ml} 0.360-3.740 [facility][H] CRP, hs, Cardiac [id number] 15:10:01 Test Item Value Reference Range Interpretation Comments C-Reactive Protein High 25.9 mg/L Low Risk: Sensitivity (test code = < 1.0 mg/LAverage 02236-7) Risk: 1.0 - 3.0 mg/LHigh Risk: >3.0 mg/LInflammatio n: >10.0 mg/L [facility]] SED RATE BY MODIFIED [id number] 15:10:01 Test Item Value Reference Range Interpretation Comments Sedimentation Rate (test code = 17 {mm/hr} 0-20 60301-5) [facility]] HEMOGLOBIN [id number] 15:10:01 Test Item Value Reference Range Interpretation Comments Hemoglobin A1c; Above High Threshold 5.7 % <=5.6 (test code = 4548-4) [facility]] ABDOUL PANEL, [id number] 15:10:01 Test Item Value Reference Range Interpretation Comments Antinuclear Antibody Negative Negative Because the ABDOUL was Screen (test code = Negative , the Reflex 77834-6) assays for Anti-dsDNA, SM/ [employer], Deb/La (SSA/S SB) were not perfor med. [facility]
--- NOTE | 2020-01-04 09:11 | RAD REPORT ---
EXAM DESCRIPTION: RAD - Ankle Left 3 View - 12/31/2019 5:30 pm CLINICAL HISTORY: Pain Fall, pain, trauma COMPARISON: None FINDINGS: Left ankle and left foot - multiple projections are submitted Moderate ankle joint effusion is present. Small plantar calcaneal spur. Bony fracture fragment is see n along the dorsum of the midfoot at the level of the tarsal- metatarsal articulation. Although nonsp ecific, this could indicate a Lisfranc injury. Advise followup nonemergent MR imaging of the foot for further assessment.
== END 2019-12-31 18:33 | disposition home or self-care (01) ==
LOC: ER 16:36
DX: M79.672 Pain in left foot (principal); W18.30XA Fall on same level, unspecified, initial encounter; Y93.9 Activity, unspecified; Y92.9 Unspecified place or not applicable; Z88.1 Allergy status to other antibiotic agents
CPT/HCPCS: 99283

== ENCOUNTER 2020-01-27 20:25 | Emergency (ER) | payer OTHER ==
--- OUTSIDE RECORDS SUMMARY | 2020-01-27 20:29 | XMS REPORT | Clinical Summary ---
:1980 Author Organization [facility] Address [address] [place] [address] Care Team Providers Name Role Phone Ana [...] daily. 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 Last Filed Vital Signs Not on file Plan of Treatment Date Type Specialty Care Team Description 01/29/2020 Appointment Radiology Joseph Morales MD [address] [phone] Results Not on fileafter 01/26/2019 Insurance Payer Benefit Plan / Subscriber ID Type Phone Address Group MEDICAID - MEDICAID MEDICAID [facility] xxxxxxxxx Medicaid Contracted [facility] C[facility]
--- OUTSIDE RECORDS SUMMARY | 2020-01-27 20:29 | XMS REPORT | Clinical Summary ---
:1980 Author Organization [facility] Address [address] [place] [address] Care Team Providers Name Role Phone Amanda [...] Take 1 tablet by 0 Active GG/INULIN (CULTURELLE mouth daily. PROBIOTICS ORAL) traZODone (DESYREL) Take 100 mg by 0 Active 100 MG tablet mouth 2 (two) times a day. mesalamine (LIALDA) Take 1,200 mg by 0 Active 1.2 gram EC tablet mouth 4 (four) times a day. norethindrone-e.estra Take 1 tablet by 0 Active diol-iron (LOESTRIN mouth daily. 24 FE) 1 mg-20 mcg (24)/75 mg (4) per tablet clonAZEPAM (KlonoPIN) 0 06/02/2016 Active 0.5 MG tablet mometasone (NASONEX) 2 sprays into each 17 g 3 10/01/2016 Active 50 mcg/actuation nostril daily. nasal spray albuterol (PROAIR Inhale 1-2 puffs 18 g 3 10/01/2016 Active HFA,PROVENTIL every 6 (six) hours HFA,VENTOLIN HFA) 90 as needed for mcg/actuation inhaler shortness of breath. ADVAIR DISKUS 500-50 INHALE ONE PUFF [...] laterality unspecified, unspecified back pain laterality azaTHIOprine (IMURAN) Take 3 tablets (150 90 tablet 1 10/01/19 19 50 mg tablet mg total) by mouth 9 daily for 180 days. Active Problems Problem Noted Date Enteropathic [...] Orders Only Internal Medicine Manda Hall MD after 01/26/2019 Immunizations Name Administration Dates Next Due FLUZONE [...] Grandfather Mahnaz Parks's esophagus Maternal Grandmother [place] Cancer Maternal Grandmother Bates Sharla Terminal li antoni cancer GERD Maternal Grandmother Bates Sharla Liver cancer Maternal Grandmother Bates Sharla Ulcerative colitis Maternal Grandmother [place] Arthritis Mother Kiarra Vision loss Mother Kiarra [...] 01/23/2020 04/17/2016, 04/13/2015 Results Not on fileafter 01/26/2019 Advance Directives For more information, please contact: [phone] Type Date Recorded Patient Manager System Explanati on Advance Directives, Living Will and Medical Power of Orthodontist Assistant
--- OUTSIDE RECORDS SUMMARY | 2020-01-27 20:33 | XMS REPORT | Continuity of Care Document ---
:1980 Author Organization [facility] t Address [address] [place] [id number] Care Team Providers Name Role Phone Sharpless Primary Care Physician DOTTY Attending Clinician Unavailable Carmen SANDOVAL Attending Clinician VANESA Attending Clinician Unavailable Jannie Attending Clinician Sarbjit STEWARD Attending Clinician LANDY Attending Clinician Unavailable Vince Bill Attending Clinician LUCAS Attending Clinician Unavailable Oneyda Attending Clinician STU Attending Clinician Unavailable Katie BOOK REVIEWER, G Attending Clinician Doctor Unassigned, Name Attending Clinician Unavailable Santiago Zavala Attending Clinician JITENDRA Attending Clinician Unavailable KAY Attending Clinician Unavailable Collins Elaine Attending Clinician ARGENTINA Attending Clinician Unavailable Vincent Attending Clinician KANDI Attending Clinician Unavailable ELIZABET Attending Clinician Unavailable Shreya Mcneal Attending Clinician Juventino Alcala Attending Clinician VINCENT Attending Clinician Unavailable Inez Madrigal Attending Clinician VIGNESH Attending Clinician Unavailable CARI Attending Clinician Unavailable Khushbu Hall MD Attending Clinician [phone] Yair Attending Clinician JAZLYN Attending Clinician Unavailable EDUARD Attending Clinician Unavailable EDUARD Attending Clinician Unavailable CHITRA Attending Clinician Unavailable Ravin Admitting Clinician Vince Bill Admitting Clinician Payers Payer Name Policy Policy Number Effective Expiration Source Type Date Date MEDICAID - MEDICAID MGD xxxxxxxxx C [facility] Contracted Center Problems Condition Condition Condition Status Onset Resolution Last Treating Co mments Source Name Details Category Date Date Treatment Clinician Date POSSIBLE Diagnosis Active 2019-12-31 M emoria BLOOD CLOT 12-22 21:53:00 l IN LEFT POSSIBLE 00:00: Tasneem nn LEG BLOOD CLOT 00 IN LEFT LEG Active 12/23/2019 [place] LEFT Diagnosis Active 2019-12-24 Mem oria HARDWARE 5-20 07:20:00 l PAIN-T84.8 LEFT 00:00: Stefan n 4XA/ LEFT HARDWARE 00 ANTERI PAIN-T84.8 4XA/ LEFT ANTERI Active 11/11/2019 [place] F/U Diagnosis Active 2019-10-23 Mem oria 2-26 07:26:00 l F/U 00:00: Richard 00 Active 08/19/2019 [facility] M25.511 - Diagnosis Active 2018-062019-05-07 Memoria PAIN IN -12 12:46:00 l RIGHT M25.511 00:01: Drake SHOULDER - PAIN IN 00 RIGHT SHOULDER Active 05/05/2019 [facility] Richard LEFT ANKLE Diagnosis Active 2018-062019-05-08 Memoria INSTABILIT 06-29 06:14:00 l Y-S93.412S LEFT 00:00: Stefan n /LEFT ANK ANKLE 00 INSTABILIT Y-S93.412S /LEFT ANK Active 04/29/2019 [place] LEFT ANKLE Diagnosis Active 2018-062019-04-29 Memoria INSTABILIT 06-27 15:51:00 l Y, ANKLE LEFT 00:00: Drake SYNOVITIS ANKLE 00 INSTABILIT Y, ANKLE SYNOVITIS Active 04/27/2019 [facility] Richard NEW PT Diagnosis Active 2018-062019-08-07 Mem oria CONSULT - 0-30 12:24:00 l COLITIS NEW PT 00:00: Drake CONSULT - 00 COLITIS Active 04/22/2019 [facility] UNK Diagnosis Active 2018-062019-04-09 Mem oria 0-04 06:10:00 l UNK 00:00: Drake 00 Active 03/27/2019 [place] ABSCESS Diagnosis Active 2019-03-06 Me moria 9-13 12:26:00 l ABSCESS 00:00: Drake 00 Active 03/06/2019 [place] SPLEEN Diagnosis Active 2019-03-03 Mem oria ENLARGEMEN 8- 11:47:00 l T SPLEEN 00:00: Richard ENLARGEMEN 00 T Active 01/22/2019 [facility] M25.561 - Diagnosis Active 2019-06-30 Memoria PAIN IN 01-13 23:15:00 l RIGHT KNEE M25.561 00:01: Her guzman - PAIN IN 00 RIGHT KNEE Active 01/13/2019 [facility] Richard Enteropath Enteropath Disease Active 2016-06 [facility] [place] ic ic 0-30 Methodi arthritis arthritis 00:00: st 00 Neuropathy Neuropathy Disease Active 2016-06 [facility] [place] 0-30 Methodi 00:00: st 00 RILEY RILEY Disease Active 2016-06 Arnett (obstructi (obstructi 0-09 Me thodi ve sleep ve sleep 00:00: st apnea) apnea) 00 Asthma Asthma Disease Active 2016-06 Ar[place] dependent dependent 0-09 Meth daniela on inhaled on inhaled 00:00: st steroids steroids 00 Chronic Chronic Disease Active Ar[place] obstructiv obstructiv 4-10 Me thodi e asthma e asthma 00:00: st with acute with acute 00 exacerbati exacerbati on on Cough Cough Disease Active Arnett 4-10 Methodi 00:00: st 00 Allergic Allergic Disease Active [place] rhinitis rhinitis 4-10 Method i due to due to 00:00: st pollen pollen 00 Inflammato Inflammato Disease Active [place] ry ry 3-09 Methodi polyarthri polyarthri 00:00: st tis tis 00 Fibromyalg Fibromyalg Disease Active [facility] [place] ia ia 3-09 Methodi 00:00: st 00 Encounter Encounter Disease Active 2015-06 Jolanta ston for for 2-15 Methodi monitoring monitoring 00:00: st azathiopri azathiopri 00 ne therapy ne therapy Vitamin D Vitamin D Disease Active 2015-06 Jolanta ston insufficie insufficie 1-08 Me thodi ncy ncy 00:00: st 00 Myalgia Myalgia Disease Active 2015-06 Arnett 1 Methodi 00:00: st 00 Chronic Chronic Disease Active 2015-06 [place] midline midline 108 Methodi low back low back 00:00: st pain pain 00 without without sciatica sciatica Ulcerative Ulcerative Disease Active 2015-06 [facility] [place] colitis colitis 105 Methodi with with 00:00: st complicati complicati 00 on on History of History of Disease Active 2015-06 [facility] [place] endometrio endometrio 105 Me thodi sis sis 00:00: st 00 IBS IBS Disease Active 2015-06 Arnett (irritable (irritable 105 Me thodi bowel bowel 00:00: st syndrome) syndrome) 00 Abdominal Abdominal Disease Active 2015-06 Jolanta ston pain pain 05 Methodi 00:00: st 00 Weakness Weakness Disease Active 2015-06 [place] 05 Methodi 00:00: st 00 Anxiety Anxiety Disease Active 2015-06 Arnett 1 Methodi 00:00: st 00 Gastropare Gastropare Disease Active 2015-06 [facility] [place] sis sis 0-25 Methodi 00:00: st 00 Tendonitis Tendonitis Disease Active 2015-06 [place] of elbow, of elbow, 0-06 Meth daniela right right 00:00: st 00 Cervical Cervical Disease Active 2015-06 [place] radiculopa radiculopa 0-06 Me thodi thy thy 00:00: st 00 Gastroesop Gastroesop Disease Active [place] hageal hageal 8-31 Methodi reflux reflux 00:00: st disease disease 00 without without esophagiti esophagiti s s Intractabl Intractabl Disease Active [facility] [place] e vomiting e vomiting 7-31 Me thodi with with 00:00: st nausea nausea 00 Sprain of Sprain of Disease Active Jolanta ston right right 7-12 [facility]i knee/leg knee/leg 00:00: st 00 APNEA Diagnosis Active 2018-08-23 Mem oria 06-24 12:18:00 l APNEA 00:00: Richard 00 Active 06/24/2000 [facility] History of History of Problem Resolve Univers asthma asthma d ity of [place] Physici ans History of History of Problem Resolve Univers depression depression d it y of [place] Physici ans History of History of Problem Resolve Univers pancreatit pancreatit d it y of is is [place] Physici ans History of History of [...] Active U nivers arthritis arthritis ity of [place] Physici ans RILEY RILEY Problem Active Univers [...] Active Univers [facility] stress stress Physici disorder) disorder) ans Other Other Problem Active Univers synovitis synovitis ity of and and [place] tenosynovi tenosynovi Ph ysici tis, right tis, right an s ankle and ankle and foot foot Left leg Left leg Problem Active Unive rs swelling swelling ity of [place] Physici ans Contusion Contusion Problem Active Uni vers of right of right ity of ankle, ankle, [place] initial initial Physici encounter encounter ans Sprain of Sprain of Problem Active Uni vers deltoid deltoid ity of ligament ligament [place] of left of left Physici ankle, ankle, ans initial initial encounter encounter Sprain of Sprain of Problem Active Uni vers tarsal tarsal ity of ligament ligament [place] of left of left Physici foot, foot, ans initial initial encounter encounter Bipolar 2 Bipolar 2 Problem Active Uni vers disorder disorder ity of [place] Physici ans Acute Problem Resolve 2019-12-26 Bunny brianna ulcerative d 22:21:49 l colitis Acute Richard (disorder) ulcerative colitis (disorder) Resolved Problem 12/26/2019 [facility], OPICamilo Ramos,[facility], OPID [place],[facility] Asthma Problem Resolve 2019-12-26 Bunny brianna (disorder) d 22:21:49 l Asthma Drake (disorder) Resolved Problem 12/26/2019 [facility], OPID Richard,[facility], [facility] [place],[facility] Atelectasi Problem Resolve 2019-12-26 Memoria s d 22:21:49 l (disorder) Stefan n Atelectasi s (disorder) Resolved Problem 12/26/2019 [facility], [facility], SANTOS Ramos,[facility], [facility] [place],[facility] Attention Problem Resolve 2019-12-26 M emoria deficit d 22:21:49 l hyperactiv Stefan n ity Attention disorder deficit (disorder) hyperactiv ity disorder (disorder) Resolved Problem 12/26/2019 [facility], [facility], SANTOS Ramos,[facility], [facility] [place],[facility] Parks's Problem Resolve 2019-12-26 M emoria esophagus d 22:21:49 l (disorder) Stefan n Parks's esophagus (disorder) Resolved Problem 12/26/2019 [facility], [facility], [facility] [place], [place], [facility] [place],[facility] Bile-induc Problem Resolve 2019-12-26 Memoria ed d 22:21:49 l gastritis Drake (disorder) Bile-induc ed gastritis (disorder) Resolved Problem 12/26/2019 [facility], [facility], OPID Richard, [place], [facility] [place],[facility] Diarrhea Problem Resolve 2019-12-26 Me moria (finding) d 22:21:49 l Diarrhea Stefan n (finding) Resolved Problem 12/26/2019 [facility], [facility], OPID Richard, [place], [facility] [place],[facility] Eczema Problem Resolve 2019-12-26 Bunny brianna (disorder) d 22:21:49 l Eczema Drake (disorder) Resolved Problem 12/26/2019 [facility], [facility], OPID Richard, [place], [facility] [place],[facility] Endometrio Problem Resolve 2019-12-26 Memoria sis d 22:21:49 l (disorder) Stefan n Endometrio sis (disorder) Resolved Problem 12/26/2019 [facility], [facility], OPID Richard,[facility], [facility] [place],[facility] Gastroesop Problem Resolve 2019-12-26 Memoria hageal d 22:21:49 l reflux Richard disease Gastroesop (disorder) hageal reflux disease (disorder) Resolved Problem 12/26/2019 [facility], [facility], OPICamilo Ramos,[facility], [facility] [place],[facility] Hemorrhoid Problem Resolve 2019-12-26 Memoria s d 22:21:49 l (disorder) Stefan n Hemorrhoid s (disorder) Resolved Problem 12/26/2019 [facility], [facility], OPID Richard,[facility], [facility] [place],[facility] Hypermobil Problem Resolve 2019-12-26 Memoria ity d 22:21:49 l syndrome Richard (disorder) Hypermobil ity syndrome (disorder) Resolved Problem 12/26/2019 [facility], [facility], [facility] [place], [place], [facility] [place],[facility] Mixed Problem Resolve 2019-12-26 Bunny brianna anxiety d 22:21:49 l and Mixed Richard depressive anxiety disorder and (disorder) depressive disorder (disorder) Resolved Problem 12/26/2019 [facility], [facility], OP[facility] [place], [place], [facility] [place],[facility] Paralytic Problem Resolve 2019-12-26 M emoria ileus d 22:21:49 l (disorder) Stefan n Paralytic ileus (disorder) Resolved Problem 12/26/2019 [facility], [facility], OPICamilo Ramos, [place], [facility] [place],[facility] Polycystic Problem Resolve 2019-12-26 Memoria ovaries d 22:21:49 l (disorder) Stefan n Polycystic ovaries (disorder) Resolved Problem 12/26/2019 [facility], [facility], OPICamilo Ramos,[facility], [facility] [place],[facility] Sleep Problem Resolve 2019-12-26 Bunny brianna apnea d 22:21:49 l (finding) Sleep Stefan n apnea (finding) Resolved Problem 12/26/2019 [facility], [facility], SANTOS Ramos,[facility], [facility] [place],[facility] Splenomega Problem Resolve 2019-12-26 Memoria ly d 22:21:49 l (disorder) Stefan n Splenomega ly (disorder) Resolved Problem 12/26/2019 [facility], [facility], SANTOS Ramos,[facility], [facility] [place],[facility] Urinary Problem Resolve 2019-12-26 Mem oria tract d 22:21:49 l infectious Urinary Her guzman disease tract (disorder) infectious disease (disorder) Resolved Problem 12/26/2019 [facility], [facility], OPICamilo Ramos, [place], [facility] [place],[facility] Arthritis Problem Active 2019-12-26 Me moria (disorder) 22:21:49 l Richard Arthritis (disorder) Active Problem 12/26/2019 [facility], [facility], OPICamilo Ramos, [place], [facility] [place],[facility] Morbid Problem Active 2019-12-26 Memor ia obesity 22:21:49 l (disorder) Morbid Herm judy obesity (disorder) Active Problem 12/26/2019 [facility], [facility], SANTOS Ramos, [place], [facility] [place],[facility] Colitis Problem Active 2019-12-26 Bunny brianna (disorder) 22:21:49 l Colitis Richard (disorder) Active Problem 12/26/2019 [facility], [place] Cellulitis Problem 2018-0 2019-03-08 2019-03-08 Memoria , 03-06 22:10:50 22:10:50 l unspecifie 17:00: Stefan winn Cellulitis 00 , unspecifie d 03/06/2019 03/08/2019 [facility] Allergies, Adverse Reactions, Alerts Allergy Allergy Status [...] to drug ity of HCl TABS (finding [place] ) Physici ans Keflex Allergy Active Univers TABS to drug ity of (finding [place] ) Physici ans Levaquin Allergy Active Univers TABS to drug ity of (finding [place] ) Physici ans CeleBREX Allergy Active Anaphylaxis Un marko CAPS to drug ity of (finding [place] ) Physici ans Sulfa Allergy Active Anaphylaxis Univ ers Drugs to drug ity of (finding [place] ) Physici ans Cipro Cipro Active Severe Memoria l Richard Keflex Keflex Active Severe Memoria l Drake Levaquin Levaquin Active Severe Memori a l Drake Adhesive Adhesive Active Severe Memori a l Richard Tape Tape Active Severe Memoria l Richard sulfaSAL sulfaSAL Active Severe Memori a Azine Azine l Drake clindamy clindamy Active Severe Memori a mari mari l Richard Augmenti Augmenti Active Severe Memori a n n l Richard CeleBREX CeleBREX Active Memori a l Drake Family History Family Member Diagnosis Comments Start [...] ians Natural brother Alcohol abuse [place] Natural brother Depression [place] [facility] Natural brother Irritable bowel [place] syndrome [place] Natural brother Learning disabilities [place] [facility] Natural brother Mental illness [place] Natural father Alcohol abuse Arnett [facility] Natural father Hypertension Arnett [facility] Maternal Diabetes Arnett grandfather [facility] Maternal Heart disease Arnett grandfather [facility] Maternal Hypertension Arnett grandfather [facility] Maternal Parks's esophagus [place] grandmother [facility] Maternal Cancer Arnett grandmother [facility] Maternal GERD Arnett grandmother [facility] Maternal Liver cancer Arnett grandmother [facility] Maternal Ulcerative colitis [place] grandmother [facility] Natural mother Arthritis Ar[place] Advent Natural mother Vision loss Arnett [facility] Natural sister Alcohol abuse Ar[place] [facility] Natural sister Depression Arnett [facility] Natural sister Irritable bowel [place] syndrome Advent Natural sister Learning disabilities [place] [facility] Natural sister Mental illness [place] Social History Social Habit Start Date Stop Date Quantity Comments Source Sex Assigned [facility] ethodist Social History 2019-01-14 2019-01-14 [facility] 04:59:00 04:59:00 Alcohol intake 2017-04-01 2017-04-01 Current drinker Masoodt on [facility] 00:00:00 00:00:00 of alcohol (finding) Alcohol Comment 2016-05-10 2016-05-10 On occasion Steve [facility] 00:00:00 00:00:00 Smoking Status Start Date Stop Date Source Social History [facility] Medications Ordered Filled Start Stop Current Ordering Indication Dosage Frequency Signature Comments Components Source Medication Medication Date Date Medication? Clinician (SIG) Name Name lamoTRIgine lamoTRIgine Yes SHAOJIE Take 1 tab Univers 25 MG Oral 25 MG Oral 8-05 STORM M.D. daily for ity of Tablet Tablet 00:00: 2 weeks [place] 00 and then Physici take 2 ans tabs daily Ondansetron Ondansetron Yes YANELI Every 8 Univers 4 MG Oral 4 MG Oral 7-10 VANESA hours as ity of Tablet Tablet 00:00: N.P. needed for Tim as Disintegrat Disintegrat 00 nausea Physici ing ing ans Acetaminoph Acetaminoph Yes YANELI 1 TAKE 1 Univers en-Codeine en-Codeine 7-10 VANESA TABLET ity of #3 300-30 #3 300-30 00:00: N.P. EVERY 6 [place] MG Oral MG Oral 00 HOURS Physi ci Tablet Tablet NEEDED FOR ans PAIN. Eliquis No Notes: Memoria 7-03 Same as: l 02:00: Eliquis Richard 00 Acetaminoph Yes 1 tab, PO, Memoria en 300 MG / 7-02 Q6H, PRN l Codeine 20:48: Pain, X 3 Tasneem nn Phosphate 00 day, # 12 30 MG Oral tab, 0 Tablet Refill(s), [Tylenol Pharmacy: with NIKOLAS Wellsine #3] [facility] 149, 175.26, cm, 12/23/19 22:50:00 CDT, Height, 150.057, kg, 12/23/19 22:50:00 CDT, Weight baclofen 5 Yes 5 mg = 1 Mem oria mg oral 7-02 tab, PO, l tablet 20:48: TID, # 21 Stefan n 00 tab, 0 Refill(s), Pharmacy: [facility] 149, 175.26, cm, 12/23/19 22:50:00 CDT, Height, 150.057, kg, 12/23/19 22:50:00 CDT, Weight Eliquis 2019- No Notes: Memoria 12-23 Same as: l 19:20: Eliquis Richard 00 Acetaminoph 2019- Yes 100.4 F, M emoria en 325 MG 02 0 l Oral Tablet 19:19: Refill(s) H erm tramadol No 50 mg = 1 Bunny brianna hydrochlori - tab, PO, l de 50 MG 19:19: Q6H, PRN Tasneem nn Oral Tablet 00 Pain, X 10 day, # 40 tab, 0 Refill(s), Pharmacy: [facility] 149, 175.26, cm, 12/23/19 22:50:00 CDT, Height, 150.057, kg, 12/23/19 22:50:00 CDT, Weight {74 Yes 5 mg = 1 Memoria (apixaban 5 12-23 tab, PO, l MG Oral 19:19: BID, as Drake Tablet 00 directed [Eliquis]) on package } Pack labeling, [Eliquis # 60 tab, 30-Day 0 Starter Refill(s), Pack] Pharmacy: [facility] 149, 175.26, cm, 12/23/19 22:50:00 CDT, Height, 150.057, kg, 12/23/19 22:50:00 CDT, Weight Lovenox No Notes: Jona 12-23 Nurse to l 15:00: ensure Richard 00 documentat ion of patient education per anticoagul ation policy. (Same as: Lovenox) Lovenox No Notes: Jona 12-23 Nurse to l 14:00: ensure Richard 00 documentat ion of patient education per anticoagul ation policy. (Same as: Lovenox) Dexilant No 60 mg, 1 Memor ia 12-23 cap, l 14:00: Route: PO, Richard Drug form: DRC, Daily, Dosing Weight 150.057, kg, Start date: 12/24/19 9:00:00 CDT, Duration: 30 day, Stop date: 01/22/20 9:00:00 CDT Advair 2020-0 No 1 Memoria Diskus 500 - inhalation l mcg-50 mcg 14:00: , Route: Her guzman inhalation 00 INHALATION powder , Drug Form: AERO, Dosing Weight 150.057, kg, BID, Start date: 12/24/19 9:00:00 CDT, Duration: 30 day, Stop date: 01/22/20 17:00:00 CDT gabapentin 2019-0 No Notes: Memor ia 800 MG Oral 12-23 (Same as: l Tablet 14:00: Neurontin) Tasneem nn [Neurontin] 00 Lialda 2019-0 No 1.2 gm, 1 Memori a - tab, l 14:00: Route: PO, Drake 00 Drug form: ECTAB, Daily, Dosing Weight 150.057, kg, Start date: 12/24/19 9:00:00 CDT, Duration: 30 day, Stop date: 01/22/20 9:00:00 CDT Propranolol 2019-0 No Notes: Bunny brianna 12-23 Give with l 14:00: food. Richard 00 (Same as: Inderal) Trintellix 2019-0 No 10 mg, 1 Mem oria - tab, l 14:00: Route: PO, Richard 00 Drug form: TAB, Daily, Dosing Weight 150.057, kg, Start date: 12/24/19 9:00:00 CDT, Duration: 30 day, Stop date: 01/22/20 9:00:00 CDT Protonix 2019-0 No Notes: Memoria -02 Tablet l 14:00: should not Richard 00 be chewed or crushed. (Same as: Protonix) Trazodone 2019-0 Yes 100 mg = 1 Me moria Hydrochlori 7-02 tab, PO, l de 100 MG 13:35: Bedtime, # He rmann Oral Tablet 00 30 tab, 1 Refill(s) Nitrofurant 2019-0 No 100 mg = 1 Memoria oin 100 MG -02 cap, PO, l Oral 13:35: BID, # 14 Richard Capsule 00 cap, 0 [Macrobid] Refill(s) Albuterol 2019-0 No Notes: SEE Me moria 0.83 MG/ML 7-02 RT l Inhalant 13:00: DOCUMENTAT Her guzman Solution 00 ION (Same as: Proventil) Baclofen No Notes: Memoria 12-23 (Same As: l 13:00: Lioresal) Richard Pulmicort No Notes: Memori a Respules 12-23 (Same As: l 13:00: Pulmicort) Richard 00 Trazodone No Notes: Memori a Hydrochlori 12-23 (Same As: l de 100 MG 07:00: Desyrel) Herm judy Oral Tablet 00 Albuterol No Notes: Memori a 0.833 MG/ML 12-23 (Same as: l / 02:44: Duoneb) Richard Ipratropium 00 [place] 0.167 MG/ML Inhalant Solution [DuoNeb] Acetaminoph No Notes: Bunny brianna en 325 MG / 12-23 (Same as: l Hydrocodone 02:34: [place] Tasneem nn Bitartrate 00 325/5) Do 5 MG Oral not exceed Tablet 4gm/day of [[place] acetaminop 5/325] hen. Morphine No Notes: Memoria 12-23 (Same l 02:16: as:MORPhin Richard 00 e Sulfate) Zofran No Notes: Memoria 12-23 (Same as: l 02:16: Zofran) Drake 00 MEDICATION WASTE Product Size: 4 mg Product Wasted: ___ mg Dextrose No 12.5 gm, Memor ia 50% Syringe 12-23 25 mL, l (D50W) 01:55: Route: Richard IVP, Drug Form: INJ, Dosing Weight 153.8, kg, PRN, PRN Blood Glucose Results, Start date: 12/23/19 20:55:00 CDT, Duration: 30 day, Stop date: 01/22/20 20:54:00 CDT, 0 Glucagon No 1 mg, Memoria 12-23 Route: IM, l 01:55: Drug form: Drake PDR/INJ, PRN, Dosing Weight 153.8, kg, PRN Blood Glucose Results, Start date: 12/23/19 20:55:00 CDT, Duration: 30 day, Stop date: 01/22/20 20:54:00 CDT, 0 Ondansetron 2019- No Notes: Bunny brianna 12-23 (Same as: l 01:55: Zofran) Richard 00 MEDICATION WASTE Product Size: 4 mg Product Wasted: ___ mg Acetaminoph 2019- No Notes: Do M emoria en 12-23 not exceed l 01:55: 4 gm/day. Richard 00 (Same as: Tylenol) Lovenox No Notes: Memoria 12-23 Nurse to l 01:31: ensure Richard 00 documentat ion of patient education per anticoagul ation policy. (Same as: Lovenox) Omnipaque No Notes: Memori a 350 12-23 (same l injectable 01:00: as:Omnipaq H ermann solution ue 350). WASTE: F/P - Black; E - Municipal Trash Bin Saline No Notes: Memoria Flush 0.9% 12-22 (Same as: l 22:52: BD Drake 00 Posiflush) Hydralazine No Notes: Bunny brianna 6-05 (Same as: l 14:58: Apresoline ) Push over 5 minutes Labetalol No 10 mg, 2 Bunny brianna 6-05 mL, Route: l 14:58: IVP, Drug form: INJ, Q5Min, Dosing Weight 155, kg, PRN Elevated BP, Start date: 11/27/19 9:58:00 CDT, Duration: 5 doses or times, Stop date: Limited # of times, 0 Oxycodone 2019-0 No Notes: Memori a Hydrochlori 6-05 (Same as: l de 5 MG 14:58: Roxicodone Herm judy Oral Tablet ) Fentanyl 2019- No Notes: Memoria 6-05 (Same as: l 14:58: Sublimaze) Drake 00 Preservat luzmaria free. Oxycodone 2019- No Notes: Memori a 6-05 (Same as: l 14:58: 'Roxicodon e) Hydromorpho 2020-0 No Notes: Bunny brianna ne 6-05 Same [...] 4 mg Product Wasted: _0__ mg Dexamethaso No Notes: Bunny brianna ne 6-05 Concentrat l 14:58: ion: 4mg/ml Promethazin No Notes: Do M emoria e 6-05 not give l 14:58: IV push. (Same as: Phenergan) 72 HR Yes Notes: Memoria Scopolamine 6-05 Change l 0.0139 14:58: patch Drake MG/HR 00 every 72 Transdermal hours Patch (Same as: Transderm- Scop) Insulin No Notes: Memoria Lispro 6-05 (Same as: l 14:58: Humalog) Roll in [...] ONCE, Stop date: 11/27/19 8:52:00 CDT vancomycin No Route: IV, M emoria (ANES) 1500 11-26 Drug form: l mg 13:26: INJ, Start date: 11/27/19 8:26:00 CDT, Stop date: 11/27/19 9:26:00 CDT Lactated No Route: IV, Mem oria Ringers 11-26 Total l Injection 13:06: Volume: Tasneem nn IV (ANES) 1,000, 1000 mL Start date: 11/27/19 8:06:00 CDT, Stop date: 11/27/19 9:06:00 CDT Ondansetron Yes 4 mg = 1 Me moria 4 MG Oral 6-05 tab, PO, l Tablet 12:42: Q8H, PRN Richard [Zofran] 00 as needed for nausea/vom iting, # 20 tab, 1 Refill(s), Pharmacy: [facility] [id number] Acetaminoph Yes 1 tab, PO, Memoria en 325 MG / 6-05 Q4H, PRN l Hydrocodone 12:42: Pain, X 6 H ermann Bitartrate 00 day, # 28 10 MG Oral tab, 0 Tablet Refill(s), Pharmacy: [facility] [id number] ibuprofen No 600 mg = 1 Me moria 600 mg oral 6-05 tab, PO, l tablet 12:42: TID, PRN Drake 00 pain, # 90 tab, 0 Refill(s), Pharmacy: [facility] [id number] Lidocaine No Notes: Memori a Hydrochlori 6-05 Preservati l de 10 MG/ML 12:00: ve free. He rmann Injectable 00 (Same as: Solution Xylocaine MPF) Calcium No 1,000 mL, Memor ia Chloride 6-05 [...] en 6-05 acetaminop l 11:49: hen 4000 Drake 00 mg/day (4 gm/day). (Same as: Tylenol Extra Strength) gabapentin No Notes: Memor ia 6-05 (Same as: l 11:49: Neurontin) Drake 00 Hydralazine No Notes: Bunny brianna 6-05 (Same as: l 11:49: Apresoline Richard 00 ) Push over 5 minutes 72 HR 2020-0 No Notes: Memoria Scopolamine 6-05 Change l 0.0139 11:49: patch Richard MG/HR 00 every 72 Transdermal hours Patch (Same as: Transderm- Scop) Insulin 0 No Notes: Memoria Lispro 6-05 (Same as: l 11:49: Humalog) Richard 00 Roll in palms of hands gently; Do not shake vigorously . WASTE: F/P - Black; E - Municipal Trash Bin Stable for 28 days at room temperatur e. Expires in days from ____Date ceFAZolin + 2020-0 No Notes: Bunny brianna sterile 6-05 (Same As: l water 20 mL 11:00: Ancef, Herm judy 00 Kefzol) MEDICATION WASTE Product Size: 1000 mg Product Wasted: ___ mg Lactated No 1,000 mL, Bunny brianna Ringers 6-05 Rate: KVO l Injection 11:00: rate, Richard IV 1,000 mL 00 Route: IV, Dosing Weight 150 kg, Total Volume: 1,000, Start date: 11/27/19 6:00:00 CDT, Duration: 30 day, Stop date: 12/27/19 5:59:00 CDT, 2.75, m2, 0 methylPREDN methylPREDN 2019-0 Yes HOLGER PERAZA TAKE Univers ISolone 4 ISolone 4 3-02 M.D. DIRECTED i ty of MG Oral MG Oral 00:00: [place] Tablet Tablet 00 Physici Therapy Therapy ans Pack Pack Mesalamine Mesalamine 2019-0 Yes KOBE 2 Q0.5D TAKE 2 Univers 400 MG Oral 400 MG Oral 2-26 OBONYANO CAPSULE ity of Capsule Capsule 00:00: DOOR LINER Twice [place] Delayed Delayed 00 daily Physici Release Release TDD:1.6gm ans Enteragam 2020-0 Yes Enteragam, Me moria 2-14 See l 17:29: Instructio Richard 00 ns, 1 packet twice a day x2 weeks, # 1 kit, Refill(s) 0, Pharmacy: [facility] Trezix Trezix 2020-0 Yes ISAI TAKE 2 Uni vers 320.5-30-16 320.5-30-16 1-20 KAY CAPSULES ity of MG Oral MG Oral 00:00: DOOR LINER BY MOUTH Tim as Capsule Capsule 00 EVERY 4 TO Phy sici 6 HOURS ans NEEDED FOR PAIN Pregabalin Pregabalin 2018-06 Yes ISAI Q0.3333D TAKE 1 Univers 75 MG Oral 75 MG Oral 07-19 KAY CAPSULE 3 ity of Capsule Capsule 00:00: DOOR LINER TIMES [place] 00 DAILY. 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 FOLDING MACHINE OPERATOR, Duration: 30 day, Stop date: 06/07/19 13:59:00 FLAT FOLDING MACHINE OPERATOR Ketorolac 2018-06 No 30 mg, Memori a 1-15 Route: IV, l 18:10: ONCE, Dosing Weight 152.818, kg, Start date: 05/08/19 12:10:00 FLAT FOLDING MACHINE OPERATOR, Stop date: 05/08/19 12:10:00 FLAT FOLDING MACHINE OPERATOR ondansetron 2018-06 No Route: IV, Memoria (ANES) 1-15 Drug form: l 17:53: INJ, ONCE, Stop date: 05/08/19 11:53:00 FLAT FOLDING MACHINE OPERATOR glycopyrrol 2018-06 No Route: IV, Memoria ate (ANES) 1-15 Drug form: l 17:53: INJ, ONCE, Stop date: 05/08/19 11:53:00 FLAT FOLDING MACHINE OPERATOR neostigmine 2018-06 No Route: IV, Memoria (ANES) 1-15 Drug form: l 17:53: INJ, ONCE, Stop date: 05/08/19 11:53:00 FLAT FOLDING MACHINE OPERATOR Morphine 2018-06 No 2 mg, 1 Memori a 1-15 mL, Route: l 17:22: IVP, Drug form: SOLN, Q5Min, Dosing Weight 152.818, kg, PRN Pain Score 4-6, Start date: 05/08/19 11:22:00 FLAT FOLDING MACHINE OPERATOR, Duration: 5 doses or times, Stop date: [...] 16:38: INJ, ONCE, Stop date: 05/08/19 10:38:00 FLAT FOLDING MACHINE OPERATOR lidocaine 2018-06 No Route: IV, Me moria (ANES) 1-15 Drug form: l 16:27: INJ, ONCE, Stop date: 05/08/19 10:27:00 FLAT FOLDING MACHINE OPERATOR propofol 2018-06 No Route: IV, Mem oria (ANES) 1-15 Drug form: l 16:27: INJ, ONCE, Stop date: 05/08/19 10:27:00 FLAT FOLDING MACHINE OPERATOR rocuronium 2018-06 No Route: IV, M emoria (ANES) 1-15 Drug form: l 16:27: INJ, ONCE, Stop date: 05/08/19 10:27:00 FLAT FOLDING MACHINE OPERATOR dexamethaso 2018-06 No Route: IV, Memoria ne (ANES) 1-15 Drug form: l 16:27: INJ, ONCE, Stop date: 05/08/19 10:27:00 FLAT FOLDING MACHINE OPERATOR fentaNYL 2018-06 No Route: IV, Mem oria (ANES) 1-15 Drug form: l 16:22: INJ, ONCE, Stop date: 05/08/19 10:22:00 FLAT FOLDING MACHINE OPERATOR Lactated 2018-06 No Route: IV, Mem oria Ringers 1-15 Total l Injection 15:27: Volume: Tasneem nn IV (ANES) 00 1,000, 1000 mL Start date: 05/08/19 9:27:00 FLAT FOLDING MACHINE OPERATOR, Stop date: 05/08/19 10:27:00 FLAT FOLDING MACHINE OPERATOR Vancomycin 2018-06 No 2001 mg: Me moria 1-15 infuse l 15:00: over 2.5 Drake 00 hours For adult patients only: Round to nearest 250 mg per Medical Staff approval MEDICATION WASTE Product Size: 1000 mg Product Wasted: ___ mg Acetaminoph 2018-06 Yes 1-2 tab, Me moria en 325 MG / 1-15 PO, Q4-6H, l Hydrocodone 14:54: PRN Pain, H ermann Bitartrate 00 X 12 day, 10 MG Oral # 70 tab, Tablet 0 [Owanka Refill(s) 10/325] Ondansetron 2018-06 Yes 4 mg = 1 Me moria 4 MG Oral 1-15 tab, PO, l Tablet 14:54: Q8H, PRN Richard [Zofran] 00 as needed for nausea/vom iting, # 20 tab, 1 Refill(s), Pharmacy: [facility] [id number] Famotidine 2018-06 No Notes: Memor ia 20 MG Oral 1-15 (Same as: l Tablet 14:07: Pepcid) Drake 00 Calcium 2018-06 No 1,000 mL, Memor ia Chloride 1-15 Rate: 75 l 0.0014 12:34: ml/hr, Richard MEQ/ML / 00 Infuse Potassium over: 13.3 Chloride hr, Route: 0.004 IV, Dosing MEQ/ML / Weight 150 Sodium kg, Total Chloride Volume: 0.103 1,000, MEQ/ML / Start Sodium date: Lactate 05/08/19 0.028 6:34:00 MEQ/ML FLAT FOLDING MACHINE OPERATOR, Injectable Duration: Solution 30 day, Stop date: 06/07/19 6:33:00 FLAT FOLDING MACHINE OPERATOR, 2.75, m2, 0 Acetaminoph 2018-06 No Notes: Max Memoria en 1-15 acetaminop l 12:34: hen 4000 Richard 00 mg/day (4 gm/day). (Same as: Tylenol Extra Strength) gabapentin 2018-06 No Notes: Memor ia 1-15 (Same as: l 12:34: Neurontin) Richard 00 Lidocaine 2018-06 No Notes: Memori a [...] 1-15 Rate: KVO l Injection 12:00: rate, Drake IV 1,000 mL 00 Route: IV, Dosing Weight 150 kg, Total Volume: 1,000, Start date: 05/08/19 6:00:00 FLAT FOLDING MACHINE OPERATOR, Duration: 30 day, Stop date: 06/07/19 5:59:00 FLAT FOLDING MACHINE OPERATOR, 2.75, m2, 0 Advair 2018-06 Yes INHALATION [...] Rate: 75 l 0.9% IV 11:33: ml/hr, Richard 1000 mL 00 Infuse over: 13.3 hr, Route: IV, Dosing Weight 150.455 kg, Total Volume: 1,000, Start date: 04/09/19 6:33:00 CDT, Duration: 30 day, Stop date: 05/09/19 6:32:00 FLAT FOLDING MACHINE OPERATOR, 2.73, m2 0.5 ML 2018-06 Yes 50 mg = Memoria golimumab 0-16 0.5 ml, l 100 MG/ML 14:21: SUB-Q, Stefan n Prefilled 00 qMonth Syringe [Simponi] {21 2019-1 Yes 1 tab, PO, Memoria (Ethinyl 0-16 Daily l Estradiol 14:19: Richard 0.02 MG / 00 norethindro ne acetate 1 MG Oral Tablet) / 7 (Ferrous fumarate 75 MG Oral Tablet) } Pack [07/13 28 Day] Lidocaine 2018-06 Yes 5 %, TOP, Mem oria 0-16 ONCE l 14:16: Drake 00 gabapentin 2018-06 Yes 800 mg = 1 M emoria 800 MG Oral 0-16 tab, PO, l Tablet 14:16: TID Richard [Neurontin] 00 Diclofenac 2018-06 Yes 2 gm, TOP, M emoria Sodium 0.01 0-16 QID l MG/MG 14:15: Drake Topical Gel 00 amphetamine 2018-06 No 20 mg = 1 M emoria -dextroamph 0-16 tab, PO, l etamine 20 14:14: Daily, 0 Her guzman mg oral 00 Refill(s) tablet Fluticasone Fluticasone 2018-06 Yes CASTILLO Q0.5D INHALE ONE Univers -Salmeterol -Salmeterol 0-16 CHITRA PUFF BY ity of 500-50 500-50 00:00: M.D. MOUTH [place] MCG/DOSE MCG/DOSE 00 TWICE A Phys ici Inhalation Inhalation DAY ans Aerosol Aerosol Powder Powder Breath Breath Activated Activated CPAP CPAP Yes CASTILLO Please Univers Continuous Continuous 9-16 CHITRA provide ity of Positive Positive 00:00: [place] Airway Airway 00 with all Physici Pressure Pressure necessary an s CPAP supplies including mask (please fit), tubing, filters, etc. Good for ONE YEAR clindamycin Yes 300 mg = 1 Memoria 300 mg oral 9-13 cap, PO, l capsule 23:18: Q8H, X 10 Tasneem nn 00 day, # 30 cap, 0 Refill(s) Sodium No 1,000 mL, Memori a Chloride 9-13 1000 l 0.9% 19:45: ml/hr, Richard (Bolus) IV 00 Infuse Over: 1 hr, Route: IV, 1,000, Drug form: INJ, ONCE, Priority: STAT, Dosing Weight 150 kg, Start date: 03/06/19 14:45:00 CDT, Stop date: 03/06/19 14:45:00 CDT, 0 Morphine No Notes: Memoria 03-06 (Same l 19:45: as:MORPhin Drake 00 e Sulfate) Ondansetron No Notes: Bunny brianna 03-06 (Same as: l 19:45: Zofran) Drake 00 MEDICATION WASTE Product Size: 4 mg Product Wasted: ___ mg Simponi Yes SUB-Q, 0 Memori a 9-10 Refill(s) l 17:43: Richard 00 baclofen 20 Yes 20 mg = [...] ia 9-10 BID, 0 l 17:43: Refill(s) Drake vortioxetin Yes 10 mg = 1 M emoria e 10 MG 9-10 tab, PO, l Oral Tablet 17:43: Daily, 0 He rmann [Trintellix 00 Refill(s) ] propranolol Yes 20 mg = 1 M emoria 20 mg oral 9-10 tab, PO, l tablet 17:43: TID, 0 Drake 00 Refill(s) Omeprazole Yes 40 mg, PO, M emoria 9-10 Daily, 0 l 17:43: Refill(s) Drake Trazodone Yes 100 mg = 1 Me moria Hydrochlori 9-10 tab, PO, l de 100 MG 17:43: TID, 0 Stefan n Oral Tablet 00 Refill(s) busPIRone Yes 10 mg = 1 Mem oria 10 mg oral 9-10 tab, PO, l tablet 17:43: BID, 0 Drake 00 Refill(s) Blisovi FE 0 Yes PO, Daily, M emoria 1.5/30 9-10 0 l 17:43: Refill(s) Richard 00 ProAir HFA 2019-0 Yes 1 - 2 Memori a 9-10 puffs, PO, l 17:43: Q4H, PRN Drake 00 Wheezing / cough / shortness of breath, # 1 ea, 0 Refill(s) 200 ACTUAT 2019-0 Yes 2 puff, Bunny brianna Albuterol 9-10 INHALATION l 0.09 17:43: , QID, 0 Drake MG/ACTUAT 00 Refill(s) Metered Dose Inhaler [Proventil] Cholestyram 2018-0 Yes 4 gm, PO, M emoria ine Resin 9-10 BID, 0 l 17:43: Refill(s) Richard 00 nitrofurant 2018-0 Yes 100 mg = 1 Memoria oin 9-10 cap, PO, l macrocrysta 17:43: QID, 0 Herm judy ls 100 mg 00 Refill(s) oral capsule (Macrodanti n) Prednisone 2018- Yes 5 mg, PO, Me moria 9-10 Daily, l 17:43: Quantity Richard 00 sufficient , 0 Refill(s) Lidocaine 5 Lidocaine 5 2018- Yes FAROK APPLY 1 Univers % External % External 02-02 JAMALYARIA PATCH TO ity of Patch Patch 00:00: M.D. THE [place] 00 AFFECTED Physici AREA AND ans LEAVE IN PLACE FOR 12 HOURS, THEN REMOVE AND LEAVE OFF FOR 12 HOURS. Proventil Proventil Yes CHONG INHALE ONE Univers HFA 108 (90 HFA 108 (90 8-12 CHITRA TO TWO ity of Base) Base) 00:00: M.D. PUFFS BY [place] MCG/ACT MCG/ACT 00 MOUTH Physici Inhalation Inhalation EVERY 4 ans Aerosol Aerosol HOURS Solution Solution NEEDED Diclofenac Diclofenac Yes [facility] APPLY 2 GM Univers Sodium 1 % Sodium 1 % 08 JAMALYARIA OF GEL TO ity of Transdermal Transdermal 00:00: M.D. AFFECTED [place] Gel Gel 00 AREA 4 Physici TIMES ans DAILY. DO NOT APPLY MORE THAN 8 GM DAILY TO ANY ONE AFFECTED AREA. Omeprazole Omeprazole 2018- Yes KOBE 1 QD TAKE 1 Univers 40 MG Oral 40 MG Oral 8 OBONYANO CAPSULE ity of Capsule Capsule 00:00: DOOR LINER DAILY [place] Delayed Delayed 00 Physici Release Release ans Yes COREY HOBSON 1 QD TAKE 1 Univers 07/13-07/13 1-20 7-24 DOOR LINER TABLET ity of MG-MCG Oral MG-MCG Oral 00:00: DAILY. [place] Tablet Tablet 00 Physici ans Propranolol Propranolol 2018- Yes HECTOR 1 Q0.5D TAKE ONE Univers HCl - 20 MG HCl - 20 MG 7-08 STORM M.D. TABLET BY ity of Oral Tablet Oral Tablet 00:00: MOUTH [place] 00 TWICE A Physici DAY ans NEEDED traZODone traZODone Yes RAMOSJESIKADerick 1 TAKE ONE Univers HCl - 100 [...] DAILY. Physici ans Baclofen 20 Baclofen 20 2018- Yes ALANA JITENDRA 1 Q0.3333D TAKE 1 Univers MG Oral MG Oral 7-08 M.D. TABLET 3 ity o f Tablet Tablet 00:00: TIMES [place] 00 DAILY Physici NEEDED. ans azaTHIOprin 2019- No 150mg QD Take 3 [place] e (IMURAN) 4-09 10-06 tablets Metho di 50 mg 00:00: [...] tablet 00:00: MOUTH st 00 DAILY hydrOXYzine 2017- Yes TAKE ONE [place] (ATARAX) 25 [...] 2016-06 Yes 1{tbl} QD Take 1 [place] ne-e.estrad 0-30 tablet by Met hodi iol-iron 13:19: mouth st (LOESTRIN 10 daily. 24 FE) 1 mg-20 mcg (24)/75 mg (4) per tablet mometasone Yes 2{spray QD 2 sprays [facility] (NASONEX) 4-10 } into each Metho di 50 00:00: nostril st mcg/actuati 00 daily. on nasal spray albuterol Yes 1{puff} Q6H Inhale 1-2 Steve (PROAIR 4-10 puffs Methodi HFA,PROVENT 00:00: every 6 st [place] 00 (six) HFA,VENTOLI hours as N HFA) 90 needed for mcg/actuati shortness on inhaler of breath. clonAZEPAM 2015-06 Yes Power (KlonoPIN) 2-10 Methodi 0.5 MG 00:00: st tablet 00 escitalopra Yes 20mg QD Take 20 mg Power m (LEXAPRO) 9-27 by mouth Meth daniela [...] MG 15:13: mouth Medical tablet 23 nightly. [place] buPROPion Yes 450mg QD Take [address] HCl 450 mg 7-11 mg by [facility] - Tb24 15:09: mouth Medical 18 daily. [place] albuterol Yes 1{puff} Inhale 1 C HI [...] [facility] - capsule 15:09: daily. Medical 17 [place] norethindro Yes 1{tbl} QD Take [address] ne-ethinyl 7-11 tablet by Luke s - estradiol 15:07: mouth Medical (MICROGESTI 57 daily. Center N 07/13) 1-20 mg-mcg per tablet Immunizations Ordered Filled Date Status Comments Source Immunization Name Immunization Name FLUZONE QUAD PF 2016-04-17 Completed [facility] 00:00:00 [facility] Unknown Completed [facility] Physicia ns Vital Signs Vital Name Observation Time Observation Value Comments Source Heart Rate 2019-12-24 [facility] Stefan n 21:16:00 Respitory Rate 2019-12-24 [facility] Phil judy 21:16:00 Systolic (mm Hg) 2019-12-24 [facility] rmann 21:16:00 Diastolic (mm Hg) 2019-12-24 [facility] ermann 21:16:00 Temperature Oral 2019-12-24 97.7 F [facility] rmann (F) 16:40:00 Heart Rate 2019-12-24 [facility] Stefan n 16:40:00 Respitory Rate 2019-12-24 [facility] judy 16:40:00 Systolic (mm Hg) 2019-12-24 [facility] rmann 16:40:00 Diastolic (mm Hg) 2019-12-24 [facility] ermann 16:40:00 Temperature Oral 2019-12-24 97.8 F [facility] He rmann (F) 13:10:00 Heart Rate 2019-12-24 [facility] Stefan n 13:10:00 Respitory Rate 2019-12-24 [facility] 13:10:00 Systolic (mm Hg) 2019-12-24 [facility] rmann 13:10:00 Diastolic (mm Hg) 2019-12-24 [facility] ermann 13:10:00 Temperature Oral 2019-12-24 97.9 [...] 16:09:00 BP Systolic 2019-07-13 118 mm[Hg] [facility] 13:08:00 Position: [place] Physician s Sitting BP Diastolic 2019-07-13 73 mm[Hg] [facility] 13:08:00 Position: [place] Physician s Sitting Height 2019-07-13 68 [in_us] [facility] 13:08:00 [place] Physician s Weight 2019-07-13 331 [lb_av] [facility] 13:08:00 [place] Physician s Body Mass Index 2019-07-13 50.33 kg/m2 University o f Calculated 13:08:00 [place] Physician s Heart Rate 2019-07-13 84 /min [place] of 13:08:00 [place] Physician s Respitory Rate [...] 2019-05-08 [facility] ermann 19:45:00 Weight 2019-05-08 [facility] Stefan n 14:12:00 BMI Calculated 2019-05-08 [facility] 14:12:00 Height 2019-05-05 175.26 cm [facility] Stefan n 19:19:00 BP Systolic 2019-04-16 100 mm[Hg] [facility] 12:58:[facility] Position: [place] Physician s Sitting BP Diastolic 2019-04-16 66 mm[Hg] [facility]: [facility] 12:58:00 Position: [place] Physician s Sitting Height 2019-04-16 68 [in_us] [facility] 12:58:00 [place] Physician s Weight 2019-04-16 332 [lb_av] [facility] 12:58:00 [place] Physician s Body Mass Index 2019-04-16 50.48 kg/m2 University o f Calculated 12:58:00 [place] Physician s Heart Rate 2019-04-16 91 /min Location: [facility] 12:58:00 Radial; [place] Physician s Quality: Normal Respitory Rate 2019-04-09 [facility] 13:15:00 Systolic (mm Hg) 2019-04-09 [facility] Magdiel rmann 13:15:00 Diastolic (mm Hg) 2019-04-09 [facility] ermann 13:15:00 Respitory Rate 2019-04-09 [facility] 13:00:00 Systolic (mm Hg) 2019-04-09 [facility] Magdiel rmann 13:00:00 Diastolic (mm Hg) 2019-04-09 [facility] ermann 13:00:00 Respitory Rate 2019-04-09 [facility] judy 12:45:00 Systolic (mm Hg) 2019-04-09 [facility] Magdiel rmann 12:45:00 Diastolic (mm Hg) 2019-04-09 [facility] Dilan ermann 12:45:00 Heart Rate 2019-04-09 Maryam Aviles n 11:49:00 Height 2019-04-08 172.72 cm Maryam Aviles n 14:09:00 Weight 2019-04-08 Maryam Aviles n 14:09:00 BMI Calculated 2019-04-08 [facility] 14:09:00 BP Systolic 2019-03-26 122 mm[Hg] [facility] 11:25:00 Position: [place] Physician s Sitting BP Diastolic 2019-03-26 73 mm[Hg] [facility] 11:25:00 Position: [place] Physician s Sitting Height 2019-03-26 68 [in_us] [facility] 11:25:00 [place] Physician s Weight 2019-03-26 335 [lb_av] [facility] 11:25:00 [place] Physician s Body Mass Index 2019-03-26 50.94 kg/m2 University o f Calculated 11:25:00 [place] Physician s Heart Rate 2019-03-26 84 /min University 11:25:00 [place] Physician s Respiration Rate 2019-03-26 18 /min [facility] 11:25:00 [place] Physician s Temperature Oral 2019-03-06 98.1 F Maryam Veloz rmann (F) 23:56:00 Heart Rate 2019-03-06 Maryam Villarrealan n 23:56:00 Respitory Rate 2019-03-06 [facility] 23:56:00 Systolic (mm Hg) 2019-03-06 [facility] rmann 23:56:00 Diastolic (mm Hg) 2019-03-06 [facility] ermann 23:56:00 Temperature Oral 2019-03-06 98.2 F Maryam Veloz rmann (F) 22:57:00 Heart Rate 2019-03-06 [facility] Stefan n 22:57:00 Respitory Rate 2019-03-06 [facility] 22:57:00 Systolic (mm Hg) 2019-03-06 [facility] Magdiel rmann 22:57:00 Diastolic (mm Hg) 2019-03-06 [facility] H ermann 22:57:00 Systolic (mm Hg) 2019-03-06 [facility] He rmann 15:57:00 Diastolic (mm Hg) 2019-03-06 [facility] H ermann 15:57:00 Heart Rate 2019-03-06 Maryam Stefan n 15:57:00 Respitory Rate 2019-03-06 [facility] 15:57:00 Temperature Oral 2019-03-06 98.2 F [facility] Magdiel rmann (F) 15:57:00 Height 2019-03-06 172.72 cm Maryam Villarrealan n 15:57:00 BMI Calculated 2019-03-06 [facility] 15:57:00 Weight 2019-03-06 [facility] Stefan n 15:57:00 BP Systolic 2019-03-05 119 mm[Hg] [facility] 10:35:00 Position: [place] Physician s Sitting BP Diastolic 2019-03-05 79 mm[Hg] [facility] 10:35:00 Position: [place] Physician s Sitting Height 2019-03-05 68 [in_us] University 10:35:00 [place] Physician s Weight 2019-03-05 331 [lb_av] University 10:35:00 [place] Physician s Body Mass Index 2019-03-05 50.33 kg/m2 University o f Calculated 10:35:00 [place] Physician s Heart Rate 2019-03-05 90 /min Location: [facility] [place] of 10:35:00 Radial; [place] Physician s Temperature 2019-03-05 98.4 [degF] Method: Oral University of 10:35:00 [place] Physician s Systolic (mm Hg) 2019-03-03 [facility] rmann 17:09:00 Diastolic (mm Hg) 2019-03-03 [facility] ermann 17:09:00 Heart Rate 2019-03-03 [facility] Stefan n 17:09:00 Respitory Rate 2019-03-03 [facility] 17:09:00 Temperature Oral 2019-03-03 98.2 F [facility] rmann (F) 17:09:00 Height 2019-03-03 173 cm [facility] Stefan n 17:09:00 Weight 2019-03-03 Maryam Villarrealan n 17:09:00 BMI Calculated 2019-03-03 [facility] 17:09:00 BP Systolic 2019-02-05 120 mm[Hg] [facility] 16:19:00 Position: [place] Physician s Sitting BP Diastolic 2019-02-05 74 mm[Hg] [facility] 16:19:00 Position: [place] Physician s Sitting Height 2019-02-05 68 [in_us] University of 16:19:00 [place] Physician s Weight 2019-02-05 329 [lb_av] University of 16:19:00 [place] Physician s Body Mass Index 2019-02-05 50.02 kg/m2 University o f Calculated 16:19:00 [place] Physician s Temperature 2019-02-05 98 [degF] Method: [facility] of 16:19:00 [place] Physician s Heart Rate 2019-02-05 89 /min Location: [facility] of 16:19:00 Radial; [place] Physician s Quality: Normal Respiration Rate 2019-02-05 18 /min Quality: Normal Universi ty of 16:19:00 [place] Physician s O2 SAT 2019-02-05 95 % Source: [facility] of 16:19:00 [place] Physician s BP Systolic 2019-01-29 120 mm[Hg] [facility] 15:41:00 Position: [place] Physician s Sitting BP Diastolic 2019-01-29 80 mm[Hg] [facility] 15:41:00 Position: [place] Physician s Sitting Height 2019-01-29 68 [in_us] [place] [facility] 15:41:00 [place] Physician s Weight 2019-01-29 325 [lb_av] University of 15:41:00 [place] Physician s Body Mass Index 2019-01-29 49.42 kg/m2 University o f Calculated 15:41:00 [place] Physician s Heart Rate 2019-01-29 89 /min University of 15:41:00 [place] Physician s Respiration Rate 2019-01-29 16 /min University of 15:41:00 [place] Physician s BP Systolic 2019-01-23 111 mm[Hg] [facility] 13:46:00 Position: [place] Physician s Sitting BP Diastolic 2019-01-23 69 mm[Hg] [facility] 13:46:00 Position: [place] Physician s Sitting Height 2019-01-23 68 [in_us] University of 13:46:00 [place] Physician s Weight 2019-01-23 330 [lb_av] University of 13:46:00 [place] Physician s Body Mass Index 2019-01-23 50.18 kg/m2 University o f Calculated 13:46:00 [place] Physician s Heart Rate 2019-01-23 86 /min Location: L [facility] 13:46:00 Radial; [place] Physician s Quality: Normal BP Systolic 2019-01-14 101 mm[Hg] Location: [facility] of 12:53:00 Position: [place] Physician s Sitting BP Diastolic 2019-01-14 66 mm[Hg] Location: [facility] 12:53:00 Position: [place] Physician s Sitting Height 2019-01-14 68 [in_us] University of 12:53:00 [place] Physician s Body Mass Index 2019-01-14 49.2 kg/m2 University o f Calculated 12:53:00 [place] Physician s Weight 2019-01-14 323.6 [lb_av] University of 12:53:00 [place] Physician s Respiration Rate 2019-01-14 18 /min Quality: Normal Universi of 12:53:00 [place] Physician s Temperature 2019-01-14 97.8 [degF] Method: Oral University of 12:53:00 [place] Physician s Heart Rate 2019-01-14 86 /min Location: R [facility] 12:53:00 Brachial [place] Physician s Artery; Quality: Normal O2 SAT 2019-01-14 95 % Source: RA [facility] 12:53:00 [place] Physician s BP Systolic 2019-01-14 120 mm[Hg] University of 08:57:00 [place] Physician s BP Diastolic 2019-01-14 76 mm[Hg] University of 08:57:00 [place] Physician s Height 2019-01-14 68 [in_us] University of 08:57:00 [place] Physician s Body Mass Index 2019-01-14 49.42 kg/m2 University o f Calculated 08:57:00 [place] Physician s Weight 2019-01-14 325 [lb_av] University 08:57:00 [place] Physician s Respiration Rate 2019-01-14 18 /min University of 08:57:00 [place] Physician s Heart Rate 2019-01-14 82 /min University 08:57:00 [place] Physician s O2 SAT 2019-01-14 93 % [facility] 08:57:00 [place] Physician s BP Systolic 2019-01-14 120 mm[Hg] Location: HERNESTO; [facility] 08:45:00 Position: [place] Physician s Sitting BP Diastolic 2019-01-14 76 mm[Hg] Location: [place]; [facility] 08:45:00 Position: [place] [facility] Height 2019-01-14 68 [in_us] [facility] 08:45:00 [facility] Body Mass Index 2019-01-14 49.42 kg/m2 [facility] f Calculated 08:45:00 [place] [facility] Weight 2019-01-14 325 [lb_av] [facility] 08:45:00 [place] [facility] Respiration Rate 2019-01-14 18 /min [place] [facility] 08:45:00 [place] [facility] Heart Rate 2019-01-14 82 /min [facility] 08:45:00 [place] [facility] O2 SAT 2019-01-14 93 % Source: [facility] 08:45:00 [place] [facility] O2 SAT 2019-01-13 94 % Source: [facility] 08:31:00 [facility] BP Systolic 2019-01-13 119 mm[Hg] Location: DAO; [facility] 08:26:00 Position: [place] Physician s Sitting BP Diastolic 2019-01-13 79 mm[Hg] Location: DAO; [facility] 08:26:00 Position: [place] Physician s Sitting Heart Rate 2019-01-13 91 /min University 08:26:00 [place] Phys[place] s Respiration Rate 2019-01-13 19 /min [facility] 08:26:00 [place] Phys[place] BP Systolic 2019-01-13 123 mm[Hg] Location: JOEY [facility] 08:22:00 Position: [place] Physician s Sitting BP Diastolic 2019-01-13 85 mm[Hg] [facility] 08:22:00 Position: [place] Physician s Sitting Height 2019-01-13 68 [in_us] University 08:22:00 [place] Phys[place] Weight 2019-01-13 325 [lb_av] [facility] 08:22:00 [place] Phys[place] Body Mass Index 2019-01-13 49.42 kg/m2 University o f Calculated 08:22:00 [place] Physician s BP Systolic 2018-12-29 111 mm[Hg] [facility] 13:10:00 Position: [place] Physician s Sitting BP Diastolic 2018-12-29 73 mm[Hg] [facility]: [facility] 13:10:00 Position: [place] Physician s Sitting Weight 2018-12-29 325.4375 [lb_av] [facility] 13:10:00 [place] Phys[place] Height 2018-12-29 68 [in_us] [facility] 13:10:00 [place] Physician [place] Body Mass Index 2018-12-29 49.48 kg/m2 University o f Calculated 13:10:00 [place] Phys[place] Temperature 2018-12-29 98.3 [degF] Method: Oral [facility] 13:10:00 [place] Phys[place] Heart Rate 2018-12-29 93 /min Location: [facility] 13:10:00 Brachial [place] Physician s Artery; Quality: Normal O2 SAT 2018-12-29 94 % Source: [facility] 13:10:00 [place] Physician s Respiration Rate 2018-12-29 20 /min Quality: Normal Universi ty of 13:10:00 [place] Phys[place] [facility] Procedures Procedure Date / Time Performing Clinician Source Performed Post Op Promis 29 Survey 2020-01-08 00:00:00 [facility] [place] Physicians US Extremity lower venous 2019-12-23 00:00:00 Un iversity [facility] Doppler Unilat 26484 Physicians MR Ankle wo contrast [id number] 2019-10-19 00:00:00 U niversity [facility] Physicians MRI Spine lumbar wo 2019-08-24 00:00:00 [facility] [place] contrast 34382 Physicians Post Op Promis 29 Survey 2019-05-20 00:00:00 [facility] [place] Physicians Injection procedure for 2019-05-07 20:09:36 Bunny Ramos shoulder arthrography or enhanced CT/MRI shoulder arthrography [QLH] CLOSTRIDIUM 2019-04-16 00:00:00 [facility] DIFFICILE TOXIN A AND B, Physici ans EIA [QLH] CULTURE, STOOL 2019-04-16 00:00:00 [facility] (CAMPYLOBACTER, Physicians SALMONELLA/SHIGELLA) MR Shoulder wo contrast 2019-04-08 00:00:00 [facility] [address] Physicians Colonoscopy 2019-03-06 00:00:00 [place] o [facility] Physicians [QLH] CLOSTRIDIUM 2019-03-05 00:00:00 [facility] DIFFICILE TOXIN A AND B, Physici ans EIA [QLH] CULTURE, URINE, 2019-02-13 00:00:00 [facility] ROUTINE Physicians [LH] GC/CT by Amp Det 2019-02-13 00:00:00 [facility] (APTIMA) Physicians MR Ankle wo contrast [id number] 2019-02-10 00:00:00 [facility] Physicians [QH] DRUG 2019-02-09 00:00:00 [facility] SCREEN,COMPREHENSIVE Physicians (URINE) XRAY Clavicle Bilateral 2019-01-29 00:00:00 [facility] 88[address] Physicians [H] Celiac Pnl w/Rflx 2019-01-23 00:00:00 [facility] Endomy Ab Ttr Physicians [QLH] HEPATIC FUNCTION 2019-01-23 00:00:00 [facility] PANEL Physicians [H] LUNDBERG FibroSure 2019-01-23 00:00:00 [facility] Physicians [QLH] CALPROTECTIN, STOOL 2019-01-23 00:00:00 [facility] US Abdomen Doppler 54107 2019-01-23 00:00:00 [facility] Physicians [facility] Sleep Lab - Sleep 2019-01-14 00:00:00 [facility] Study Split Night Physicians [H] CK Isoenzymes 2019-01-14 00:00:00 [facility] Physicians Complete PFTs w/DLCO and 2019-01-14 00:00:00 [facility] Lung Volumes Physicians [N] 2D Echo complete, with 2019-01-14 00:00:00 [facility] Doppler 30902 Physicians [QLH] URINALYSIS, COMPLETE 2019-01-13 00:00:00 [facility] W/REFLEX TO CULTURE Physicians [QH] PROTEIN, TOTAL 2019-01-13 00:00:00 [facility] W/CREAT, RANDOM URINE Physicians [QL] QUANTIFERON(R)-TB 2019-01-13 00:00[facility]00 [facility] GOLD Physicians [QLH] HEPATITIS C ANTIBODY 2019-01-13 00:00:00 [facility] Physicians [QH] HEPATITIS B SURFACE 2019-01-13 00:00[facility]00 [facility] ANT[facility] W/REFL CONFIRM Physician s [QH] CYCLIC CITRULLINATED 2019-01-13 00:00:00 [facility] PEPTIDE (CCP) AB (IGG) Physician s XRAY Knee 1-2 Views 2019-01-13 00:00:00 [facility] Bilateral 30231 Physicians XRAY Chest 2 views [id number] 2019-01-13 00:00:00 [facility] Physicians XRAY Hip bilateral w 2019-01-13 00:00:00 [facility] pelvis [place] [address] XRAY Spine lumbar AP 2019-01-13 00:00:00 [facility] lateral 06682 Physicians XRAY Spine cervical 2 or 2019-01-13 00:00:00 [facility] 3 view 31008 Physicians XRAY Shoulder series 48736 2019-01-13 00:00:00 [facility] Physicians [QLH] TSH, 3RD GENERATION 2018-12-29 00:00:00 Un [facility] W/REFLEX TO FT4 Physicians [QH] LIPID PANEL WITH 2018-12-29 00:00:00 [facility] REFLEX TO DIRECT LDL Physicians [QLH] HEMOGLOBIN A1c 2018-12-29 00:00:00 [facility] Phys[facility] [QLH] CMP W/EGFR 2018-12-29 00:00:00 [facility] Physicians [QLH] CBC (INCLUDES 2018-12-29 00:00:00 [facility] DIFF/PLT) Physicians [QH] HIV AB, HIV 1/2, EIA, 2018-12-29 00:00:00 [facility] WITH REFLEXES Physicians [QL] ABDOUL PANEL, 2018-12-29 00:00:00 [facility] COMPREHENSIVE Physicians [QLH] SED RATE BY MODIFIED 2018-12-29 00:00:00 [facility] WESTERGREN Physicians [H] CRP, hs, Cardiac Risk 2018-12-29 00:00:00 [facility] Phys[facility] [H] Urinalysis w/ 2018-12-29 00:00:00 [facility] Microscopic Physicians [QLH] CULTURE, URINE, 2018-12-29 00:00:00 [facility] ROUTINE Physicians [O] Urine Dipstick (In 2018-12-29 00:00:00 [facility] Office) Physicians History [facility] Physicians History of Endometrial [facility] ablation Physicians History of Adenoidectomy [facility] Physicians History of Cholecystectomy [facility] Physicians History of Sinus Surgery [facility] Physicians Adenoid operation [facility] nn D&C - Dilatation and [facility] curettage Gallbladder operation [facility] ermann [facility] operation<sup>1</sup> Nasal septoplasty [facility] Plan of Care Planned Activity Planned Date Details Comments Source Future Scheduled Test 2020-01-23 INFLUENZA VACCINE H katlin Amos 00:00:00 [code = INFLUENZA VACCINE] Diagnostic Test 2019-04-13 [LH] GC/CT by Amp [facility] Pending 00:00:00 Det (APTIMA) [code = Physici ans [LH] GC/CT by Amp Det (APTIMA)] Diagnostic Test 2019-04-09 Colonoscopy [code = [facility] Pending 00:00:00 [id number]] Physicians Diagnostic Test 2019-04-09 Colonoscopy [code = Unive [facility] Pending 00:00:00 [id number]] Physicians Diagnostic Test 2019-04-09 Colonoscopy [code = Unive [facility] Pending 00:00:00 [id number]] Physicians Diagnostic Test 2019-04-08 MR Shoulder wo [facility] Pending 00:00:00 contrast 08262 [code Physici ans = 67086] Diagnostic Test 2019-04-08 MR Shoulder wo [facility] Pending 00:00:00 contrast 71821 [code Physici ans = 01711] Diagnostic Test 2019-03-30 Colonoscopy [code = Unive [facility] Pending 00:00:00 [id number]] Physicians Diagnostic Test 2019-03-30 Colonoscopy [code = Unive [facility] Pending 00:00:00 [id number]] Physicians Diagnostic Test 2019-03-30 Colonoscopy [code = Unive [facility] Pending 00:00:00 [id number]] Physicians Diagnostic Test 2019-03-30 Colonoscopy [code = Unive [facility] Pending 00:00:00 [id number]] Physicians Diagnostic Test 2019-01-14 Complete PFTs w/DLCO [facility] Pending 00:00:00 and Lung Volumes Physicians [code = Complete PFTs w/DLCO and Lung Volumes] Diagnostic Test 2019-01-14 [facility] Sleep Lab [facility] Pending 00:00:00 Sleep Study Split Physicians Night [code = [facility] Sleep Lab - Sleep Study Split Night] Diagnostic Test 2019-01-14 [N] 2D Echo [facility] Pending 00:00:00 complete, with Physicians Doppler 86121 [code = [N] 2D Echo complete, with Doppler 81555] Diagnostic Test 2019-01-14 [facility] Sleep Lab [facility] Pending 00:00:00 Sleep Study Split Physicians Night [code = [facility] Sleep Lab - Sleep Study Split Night] Diagnostic Test 2019-01-14 Complete PFTs w/DLCO [facility] Pending 00:00:00 and Lung Volumes Physicians [code = Complete PFTs w/DLCO and Lung Volumes] Diagnostic Test 2019-01-14 [facility] Sleep Lab [facility] Pending 00:00:00 Sleep Study Split Physicians Night [code = [facility] Sleep Lab - Sleep Study Split Night] Diagnostic Test 2019-01-14 [N] 2D Echo [facility] Pending 00:00:00 complete, with Physicians Doppler 10270 [code = [N] 2D Echo complete, with Doppler 96668] Future Scheduled Test 2001 Screening for [place] 00:00:00 malignant neoplasm of cervix (procedure) [code = 962155303] Future Appointment 2020-02-24 [facility] Physicians Future Appointment 2020-02-09 Karey CARLTON. [facility] 11:00:00 LANDY, Physicians Future Appointment 2020-02-03 ELOISE ZAVALA, [facility] 13:15:00 Physicians Encounters Start End Encounter Admission Attending Care Care Encounter Source Date/Time Date/Time Type Type Clinicians Facility Department ID 2019-10-23 Outpatient [facility] [id number] [facility] 07:24:40 2020-01-27 2020-01-27 JOELLE Cabral Multispecia [id number] [facility] 15:30:00 15:30:00 t; HECTOR STORM lty Darlene YOUNG M.D. Internation Tim martin M.D. al District Phys ici [facility] 2020-01-01 2020-01-01 Layla ALEXIS [facility] Orthopedics [id number] Univers 09:50:00 09:50:00 t; GARRETT GROVES at [facility] GARRETT GROVES Orthopedic Ph ysici and [facility] 2019-12-23 2019-12-24 Outpatient Morgani, MHSL MHSL [id number] 17:36:38 17:46:00 Golnar 11 2019-12-23 2019-12-23 Outpatient E MHFB MED [id number] MHFB 17:36:00 17:36:00 2019-12-21 2019-12-22 Emergency [facility], [facility] [id number] 22:02:00 02:26:00 Enedina [place] [id number] [place] [id number] [place] [id number] 2019-12-15 2019-12-15 JOELLE López Orthopedics 67 [id number] Univers 11:10:00 11:10:00 t; BRANDT [facility] liberty BILL M.D. [facility] Flo CARLTON M.D. and [facility] 2019-11-27 2019-11-27 Outpatient Landy, MHSL MHSL [id number] 06:50:00 11:40:00 Brandt Clarke 2019-11-27 2019-11-27 Layla BILL [facility] [id number] Univers 08:00:00 08:00:00 t; josé miguel CARLTON M.D. [place] MICHAEL, Physici M.D. [facility] 2019-11-27 2019-11-27 Outpatient MHFB MHFB [id number] MHFB 06:50:00 06:50:2019-11-10 2019-11-10 Appointmelina BILL, [facility] [id number] Univers 10:45:00 10:45:00 t; josé miguel CARLTON M.D. [place] Adrien CARLTON M.D. [facility] 2019-10-27 2019-10-27 Appointmelina BILL, [facility] [id number] Univers 11:30:00 11:30:00 t; josé miguel CARLTON M.D. [place] Adrien CARLTON M.D. [facility] 2019-10-23 2019-10-23 Appointmelina ZAVALA, [facility] [id number] Univers 12:45:00 12:45:00 t; ELOISE ZAVALA [facility] Physicmaryanne [facility] 2019-10-16 2019-10-16 Appointmelina BILL, [facility] [id number] Univers 10:30:00 10:30:00 t; josé miguel CARLTON M.D. [place] Adrien CARLTON M.D. [facility] 2019-09-30 2019-09-30 AppointJOELLE Cintron Multispecia [id number] Univers 15:30:00 15:30:00 t; HECTOR STORM lty - ity o f SHAOJIE, M.D. Internation Tim martin M.D. [facility] 2019-09-11 2019-09-11 Telephone [place] [id number] 00:00:00 00:00:00 Tracey Capps [id number] Romain [id number] [facility] [id number] [address] 2019-08-24 2019-08-24 Appointmen [facility] Orthopedics [id number] Univers 14:30:00 14:30:00 t; HOLGER PERAZA M.D. at [facility] Richard WREN M.D. Orthopedic Physi ci and [facility] 2019-08-20 2019-08-20 Emergency [place] [id number] 11:54:02 15:29:00 Mehreen Capps [id number] [place] [id number] [place] [id number] 2019-08-20 2019-08-20 Orders Doctor KYLIE [id number] 00:00:00 00:00:00 Only Unassigned, TI 350.1.13.10 [place] [facility] 4.2.7.2.686 [id number] 2019-08-13 2019-08-14 [facility] [id number] 18:55:26 18:55:26 08 2019-08-13 2019-08-13 JOELLE López Orthopedics 63 [id number] Univers 09:45:00 09:45:00 t; lilly CARLTON [facility] ty liberty BILL M.D. Richard [place] Flo CARLTON M.D. [facility] 2019-08-07 2019-08-07 Outpatient Lucas [facility] [id number] 10:04:00 23:59:00 Eloise Ray [place] 2019-08-07 2019-08-07 Outpatient [facility] [id number] [facility] 10:04:00 10:04:00 2019-08-07 2019-08-07 Appointmelina ZAVALA [facility] [id number] Univers 10:00:00 10:00:00 t; ELOISE ZAVALA [facility] Physici ans 2019-08-04 2019-08-04 JOELLE López [facility] [id number] Univers 13:30:00 13:30:00 t; josé miguel CARLTON M.D. [place] Adrien CARLTON M.D. [facility] 2019-07-13 2019-07-13 JOELLE Dave Multispecia [id number] Univers 13:00:00 13:00:00 t; ALANA HAM M.D. lty - i ty of Radha WARNER [facility] Physici ans 2019-06-23 2019-06-23 JOELLE López [facility] [id number] Univers 11:15:00 11:15:00 t; josé miguel CARLTON M.D. [place] Adrien CARLTON M.D. [facility] 2019-05-19 2019-05-19 JOELLE Petty Orthopedics 58 [id number] Univers 08:00:00 08:00:00 t; lilly ALEX [facility] KAY, JOCELINE Sports [place] ISAI, [facility] Physi ci [facility] [address] 2019-05-08 2019-05-08 Outpatient ADONAY BillSL S [id number] 06:14:00 17:10:00 Brandt Jorge Cherry 2019-05-08 2019-05-08 Appointmen LANDY [facility] Orthopedics 58 [id number] Univers 11:00:00 11:00:00 t; lilly CARLTON [facility] Radha BILL [place] BRANDT Orthopedic Phys ici M.DShahla and [facility] 2019-05-07 2019-05-07 Outpatient [place] OIH OI [id number] 12:36:00 23:59:00 Aditya Guadalupe 2019-05-04 2019-05-04 Appointmen ARGENTINA, [facility] [id number] Univers 11:00:00 11:00:00 t; Anish VALADEZ M.D. [place] Adrien VALADEZ M.D. [facility] 2019-04-29 2019-04-29 [facility]patient [facility] [id number] 15:49:00 15:49:[address] [place] [address] 2019-04-24 2019-04-24 Outpatient Vincent MHOIP MHOIP [id number] 11:04:00 23:59:00 [facility] 04 2019-04-20 2019-04-20 Appointmen KANDI [facility] [id number] Univers 13:00:00 13:00:00 t; OTTONIEL CHAU it y of MOUSTAFA, M.D. [place] Radha Physici [facility] 2019-04-16 2019-04-16 Appointmen ELIZABET [facility] Multispecia 5 [id number] Univers 13:00:00 13:00:00 t; Radha CERVANTES - josé miguel [place]AL [place] MARC, M.D. [address] Physi ci [facility] 2019-04-14 2019-04-14 Appointmen LANDY [facility] Orthopedics 57 [id number] Univers 14:15:00 14:15:00 t; lilly CARLTON [facility] Radha BILL [place] BRANDT Orthopedic Phys ici MSantosh and [facility] 2019-04-13 2019-04-13 Appointmen STORMJOELLE [facility] [id number] Univers 12:00:00 12:00:00 t; HECTOR STORM ity o f SHAOJIE, M.D. [place] M.D. Physicmaryanne [facility] 2019-04-09 2019-04-09 Outpatient Elizabet, MHSE MHSE [id number] 06:10:00 08:28:00 Zeferino Cash 2019-04-09 2019-04-[facility] JOELLE MCNEAL Multispecia 5 [id number] [facility] 07:00:00 07:00:00 t; Radha CERVANTES lty - ity of [place] MARC, M.D. Suite Physi ci [facility] 2019-04-09 2019-04-09 Outpatient MHSE MHSE [id number] MH 06:10:00 06:10:00 [facility] 2019-03-03 2019-04-01 Out[facility] C[facility] [id number] 11:36:00 23:59:00 Tadeo S 00 2019-03-27 2019-03-27 Outpatient Landy, MHOIP MHOIP [id number] 15:37:00 23:59:00 Brandt Clarke 2019-03-26 2019-03-26 AppointJOELLE Krishna Multispecia [id number] [facility] 11:30:00 11:30:00 t; alex HACKETT M.D. [place] Za[place] Physic i M.D. [facility] 2019-03-17 2019-03-17 AppointJOELLE Niño UTP [id number] Univers 11:00:00 11:00:00 t; josé miguel CARLTON M.D. [place] MICHAEL, Physici M.D. [facility] 2019-03-06 2019-03-06 Outpatient Kaitlin, MHSE MHSE [id number] 10:49:45 18:58:00 Stanislav Wiley 01 2019-03-05 2019-03-05 AppointJOELLE Almeida Multispecia 5 [id number] Univers 10:30:00 10:30:00 t; alex BULLOCK VIGNESH, DOOR LINER [place], Alfonso s [address], [address] Physici DOOR LINER ans 2019-03-03 2019-03-03 Outpatient [facility] [id number] [facility] 11:36:00 11:36:00 2019-03-03 2019-03-03 Appointmen JOELLE ALCALA [id number] Univers 11:30:00 11:30:00 t; TADEO ALCALA i ty of HARINDER, M.D. [place] M.D. Physici ans 2019-02-10 2019-02-10 [facility] [id number] 10:19:00 23:59:00 Zeferino Cash 2019-02-10 2019-02-10 Appointmen JOELLE BILL Orthopedics 56 [id number] Univers 13:45:00 13:45:00 t; Darlene CARLTON M.D. [place] [address] [place] Adrien CARLTON M.D. [facility] 2019-02-05 2019-02-05 Appointmen JOELLE STORM Multispecia [id number] Univers 14:00:00 14:00:00 t; HECTOR STORM lty - itjc YOUNG M.D. Internation Tim martin M.D. [facility] ans 2019-01-30 2019-01-30 Outpatient Brianovidio, OIP OIP [id number] 13:41:00 23:59:00 [facility] 2019-01-29 2019-01-29 Appointmen JOELLE KAUR Multispecia [id number] Univers 15:30:00 15:30:00 t; alex HACKETT M.D. [place] Alfonso s , Thony HACKETT i MSantosh ans 2019-01-29 2019-01-29 Appointmen JOELLE KAUR [facility] [id number] Univers 15:00:00 15:00:00 t; Dede HACKETT M.D., FAROKH, Physic i M.D. [facility] 2019-01-23 2019-01-23 Appointmen JOELLE MCNEAL Multispecia 5 [id number] Univers 14:00:00 14:00:00 t; Radha CERVANTES lty - [place] MARC, M.D. [address] Physi ci ans 2019-01-18 2019-01-19 Outpatient Yair [facility] [id number] 18:00:00 06:00:00 Rumaegananda 2019-01-14 2019-01-14 Appointmen COREY HOBSON UTP Multispecia [id number] Univers 13:00:00 13:00:00 t; JOCELINE HOBSON lty - ity o shreya NICOLE, DOOR LINER [place] Phys ici ans 2019-01-14 2019-01-14 Appointmen JOELLE CHAPA Non-Invasiv [id number] Univers 10:00:00 10:00:00 t; LARRY CHAPA e - [place] i ty of [facility] Physici ans 2019-01-14 2019-01-14 Appointmen DONOVAN CHAPAT [facility] UTP [id number] Univers 09:00:00 09:00:00 t; josé miguel CHAPA of [facility] Physici ans 2019-01-14 2019-01-14 Appointmen JOELLE BUENROSTRO Pulmonary & [id number] Univers 08:30:00 08:30:00 t; CASTILLO BUENROSTRO M.D. Sleep ity of [facility] M[facility] Physici ans 2019-01-13 2019-01-13 Outpatient IKE Kaur OIB [id number] 10:45:00 23:59:00 Roxann 2019-01-13 2019-01-13 Appointmen JOELLE KAUR Multispecia [id number] Univers 08:00:00 08:00:00 t; alex HACKETT - ity of iTm Demarco M.D. as , ROXANN, [address] Physic i MShahlaD. ans 2018-12-29 2018-12-29 Appointmen COREY HOBSON, JOELEL Multispecia [id number] Univers 13:00:00 13:00:00 t; JOCELINE HOBSON lty - ity o f COREY DOOR LINER [place] Phys ici ans Results Test Description Test Time Test Comments Results Result Sour e Comments HEMATOLOGY 2019-12-24 94 [facility] 16:22:00 Richard HEMATOLOGY 2019-12-24 128 [facility] 16:22:00 Drake HEMATOLOGY 2019-12-24 68 [facility] 16:22:00 Drake IMMUNOLOGY 2019-12-24 8.1 [facility] 16:22:00 Drake IMMUNOLOGY 2019-12-24 1.7 [facility] 16:22:00 Drake IMMUNOLOGY 2019-12-24 <1.6 Memorial 16:22:00 Drake IMMUNOLOGY 2019-12-24 <0.2 [facility] 16:22:00 Drake IMMUNOLOGY 2019-12-24 3.7 [facility] 16:22:00 Drake IMMUNOLOGY 2019-12-24 <1.4 [facility] 16:22:00 Richard IMMUNOLOGY 2019-12-24 <0.2 [facility] 16:22:00 Richard IMMUNOLOGY 2019-12-24 Negative [facility] 16:22:00 (12/24/19 11:22 Richard AM) CARDIAC ENZYMES 2019-12-23 <0.02 Memorial 23:45:00 Drake CHEM PANEL 2019-12-23 83 [facility] 23:45:00 Drake CHEM PANEL 2019-12-23 18 [facility] 23:45:00 Drake CHEM PANEL 2019-12-23 0.96 Memorial 23:45:00 Drake CHEM PANEL 2019-12-23 140 [facility] 23:45:00 Richard CHEM PANEL 2019-12-23 4.1 [facility] 23:45:00 Richard CHEM PANEL 2019-12-23 107 [facility] 23:45:00 Drake CHEM PANEL 2019-12-23 25 [facility] 23:45:00 Drake CHEM PANEL 2019-12-23 9.1 [facility] 23:45:00 Richard CHEM PANEL 2019-12-23 12.1 [facility] 23:45:00 Drake CHEM PANEL 2019-12-23 75 [facility] 23:45:00 Richard ENDOCRINOLOGY 2019-12-23 Negative [facility] 23:45:00 *NA*(12/23/19 Richard 6:45 PM) HEMATOLOGY 2019-12-23 10.3 Memorial 23:45:00 Drake HEMATOLOGY 2019-12-23 4.95 [facility] 23:45:00 Richard HEMATOLOGY 2019-12-23 14.5 [facility] 23:45:00 Drake HEMATOLOGY 2019-12-23 43.8 [facility] 23:45:00 Richard HEMATOLOGY 2019-12-23 88.5 [facility] 23:45:00 Richard HEMATOLOGY 2019-12-23 23:45:00 Test Item Value Reference Range Interpretation Comme nts MCH (test code = MCH) 29.2 pg 27.0-31.0 Memorial [id number] 23:45:0033.0[facility] 2019-12-23 23:45:0014.0[facility] [id number] 23:45:06517Zctgxtuo [id number] 23:45:007.6[facility]orial [id number] 23:45:00 Test Item Value Reference Range Interpretation Comments PT (test code = PT) 13.7 s 12.0-14.7 Memorial [id number] 23:45:00 Test Item Value Reference Range Interpretation Comments INR (test code = INR) 1.05 1 0.85-1.17 Memorial [id number] 23:45:00 Test Item Value Reference Range Interpretation Comments PTT (test code = PTT) 28.0 s 22.9-35.8 [facility] LvbtnjtNZYUOBCVVS8445-65-37 23:45:0066.1[facility] HermannHEMATOLOGY 2019-12-23 23:45:0024.3[facility] UxopokaFQJMDXKEPM8418-97-06 23:45:008.2[facility] TrzfirvILUIGUWDIY9530-07-76 23:45:000.3[facility] BlvvqbeJQHQCFWUWF5901-37-83 23:45:001.1[facility] IhxaipfGVXTFTWIFG3150-67-38 23:45:006.8[facility] WRLUCDETCW1182-05-90 23:45:002.5[facility] PvzhftfMFTKCIFBOS9295-35-67 23:45:000.8 [facility] LuqnytkQYDOEAYHKS8793-11-56 23:45:000.1[facility] HermannURINE CHEM 2019-11-27 12:04:00Negative (11/27/19 7:04 AM)[facility] HyeraoyGIPNLVRSKW3107-39-68 16:20:00Not Detected (11/24/19 11:20 AM)[facility] HermannCHEM JWCDD6495-93-09 17:28:0095[facility] HermannCHEM SZCZL5448-63-39 17:28:0023[facility] HermannCHEM UMUMA4016-23-08 17:28:000.96[facility] HermannCHEM GARTT5699-28-42 17:28:92378 [facility]annCHEM BSRRV5129-83-73 17:28:004.7[facility] HermannCHEM PANEL 2019-08-07 17:28:76890Jyutpjkv HermannCHEM CQJOH9760-47-57 17:28:0026[facility]annCHEM SJEXU1778-21-96 17:28:009.0[facility]annCHEM HWKOL6809-67-87 17:28:007.8[facility]annCHEM RRBFL6300-80-58 17:28:003.4[facility] HermannCHEM IQYVE2448-63-67 17:28:0022[facility]annCHEM NCXLW0954-80-44 17:28:0015 [facility]annCHEM DDSUU2152-03-39 17:28:0084[facility] HermannCHEM PANEL 2019-08-07 17:28:000.3[facility]annCHEM GYHOF1890-59-48 17:28:008.7[facility]annCHEM AFKCT1176-11-23 17:28:00 Test Item Value Reference Range Interpretation Comments B/C Ratio (test code = B/C Ratio) 24 1 6-25 [facility]annCHEM WFRKD0690-16-98 17:28:004.4[facility] HermannCHEM PANEL 2019-08-07 17:28:00 Test Item Value Reference Range Interpretation Comments A/G Ratio (test code = A/G Ratio) 0.8 1 0.7-1.6 [facility]annCHEM TNMFM9496-91-02 17:28:0075[facility]annHEMATOLOGY 2019-08-07 17:28:009.5[facility] JzydfjgTDAKPAXGBS0535-66-06 17:28:004.68[facility] TzczofnGNRAKOFCSI2503-43-75 17:28:0014.2[facility] HzpvgnfXWHUXDSLWX5769-73-91 17:28:0042.3[facility] KfudmlhQUULDQSTQH8315-40-81 17:28:0090.4[facility] JGEQCAQZOL3439-02-93 17:28:00 Test Item Value Reference Range Interpretation Comments MCH (test code = MCH) 30.4 pg 27.0-31.0 [facility] KequagsJFQDVITMFY9467-77-25 17:28:0033.6[facility] HermannHEMATOLOGY 2019-08-07 17:28:0012.9[facility] EaczifmITVCDIFWVY1999-30-79 17:28:49188Liiitugl PzrjyqoJOKMXUUKOB9809-87-08 17:28:008.1[facility] WvfjnkpKZOGTQDXOK4074-68-42 17:28:0021[facility] NgvtpvzSMPABTXMUE1027-17-95 17:28:0070.9[facility] FXUOIZUBRN2941-05-38 17:28:0020.9[facility] WgelmnkUEDXSVYTQU0887-42-99 17:28:00 7.2[facility] MbuyycvCDHZTUUGPL1827-08-87 17:28:000.1[facility] HermannHEMATOLOGY 2019-08-07 17:28:000.9[facility] OlyoupgAEKUOUPKZU9809-53-66 17:28:006.8[facility] NqqtcevTXTQSHWCCO8256-44-50 17:28:002.0[facility] QvtmtbrJTJUODUOTO6096-29-01 17:28:000.7[facility] QzxzorjVQQVLFSPOR5874-82-10 17:28:000.1[facility] NRHKYZPQVS8411-54-10 17:28:0029.7[facility] HermannPost Op Promis 29 Survey 2019-06-10 13:33:12 Test Item Value Reference Range Interpretation Comments Pain Interference: (test code = Pain 73.7 1 N Interference:) Pain Intensity: (test code = Pain 53.7 1 N Intensity:) Physical Function: (test code = 21.3 1 N Physical Function:) Satisfaction Role: (test code = 35.6 1 N Satisfaction Role:) [facility] PhysiciansURINE IRKB0453-17-68 14:18:00Negative (05/08/19 8:18 AM)[facility] HermannCHEM JBOPJ4802-74-83 14:09:54168Thupxtra HermannCHEM FBERC8381-85-46 14:09:0018[facility] HermannCHEM ETUVF5082-06-19 14:09:001.11 [facility] HermannCHEM VUYMG5444-85-39 14:09:09619Hpkuogla HermannCHEM PANEL 2019-05-08 14:09:004.5Wym[facility] HermannCHEM RGPAL0652-06-57 14:09:46197Qnjlxdsh HermannCHEM KCLXB9484-71-15 14:09:0021[facility] HermannCHEM HLYZW6027-51-27 14:09:009.0Wym[facility] HermannCHEM VXLOE6845-26-29 14:09:0013.5Wym[facility] HermannCHEM HQPUM0978-55-05 14:09:0063[facility] Shoulder wo contrast 58723 2019-04-24 11:13:00PROCEDURE INFORMATION:Exam: MR Right Upper Extremity [...] the proximalhumerus.Meliton Rush MD On 04/24/2019 13:45:44; [id number]--Szyd by: Meliton Rush MDDictated Date/time: 04/24/19 13:45Electronically Signed by: Meliton Rush MD 04/24/1913:45FINAL REPORTUnIntermountain Healthcare PhysiciansCH[facility] TGAR5465-03-36 11:47:00Negative (04/09/19 6:47 AM)[facility] HermannCHEM KBKQD3255-76-26 20:16:00 128[facility] HermannCHEM KIESH1252-89-25 20:16:0020[facility] HermannCHEM PANEL 2019-03-06 20:16:001.01[facility] HermannCHEM AMSJI7264-27-79 20:16:04024Mmnbnzwz HermannCHEM HDBED8329-92-31 20:16:003.7[facility] HermannCHEM FHJUN6814-85-83 20:16:18404Oeqrzqym HermannCHEM SGYXO9374-81-81 20:16:0024[facility] HermannCHEM MNTZA0064-62-49 20:16:008.4[facility] HermannCHEM NMZYC2571-81-10 20:16:006.8 [facility] HermannCHEM AEOAG9897-16-36 20:16:003.2[facility] HermannCHEM PANEL 2019-03-06 20:16:0021[facility] HermannCHEM WSHKM1884-17-16 20:16:0012[facility] HermannCHEM VVECB8970-49-08 20:16:0062[facility] HermannCHEM YWHFP2977-65-85 20:16:000.3[facility] HermannCHEM IFXMG0902-18-67 20:16:0010.7[facility] HermannCHEM DIZDO3396-60-53 20:16:00 Test Item Value Reference Range Interpretation Comments B/C Ratio (test code = B/C Ratio) 20 1 6-25 [facility]annCHEM BCDRJ0820-53-97 20:16:003.6[facility] HermannCHEM PANEL 2019-03-06 20:16:00 Test Item Value Reference Range Interpretation Comments A/G Ratio (test code = A/G Ratio) 0.9 1 0.7-1.6 [facility]annCHEM BKPQW5178-93-63 20:16:0071[facility] HermannENDOCRINOLOGY 2019-03-06 16:49:00Negative *NA*(03/06/19 11:49 AM)[facility] HermannHEMATOLOGY 2019-03-06 16:49:007.8[facility] KwbekpgYBAFXTBSAG7848-17-39 16:49:004.19[facility] PwalbgbURCYPLTGYR5555-11-08 16:49:0013.4[facility] TpcfonpKWAXZVUNTK9287-69-22 16:49:0040.1[facility] WfsjilmOXOLHDODOV1179-63-48 16:49:0095.7[facility] RVWHRXKIRX8215-64-50 16:49:00 Test Item Value Reference Range Interpretation Comments MCH (test code = MCH) 32.0 pg 27.0-31.0 [facility] XlognbyTNSMIKFOBV4500-25-22 16:49:0033.4[facility] HermannHEMATOLOGY 2019-03-06 16:49:0013.4[facility] OsgxwpcBKODIXBAQN6301-22-39 16:49:0094[facility] IuemhytASUNCVPQVE6638-81-46 16:49:008.5[facility] AuidltrNBMMMWPBPI4155-29-75 16:49:0067.9[facility] IccarmgQEWZUBCHHF5959-68-31 16:49:0024.2[facility] EQUROZWHGW7625-00-55 16:49:006.4[facility] EcmovbyKXEIZBGOJT3766-02-10 16:49:000.7 [facility] JoxmmupUZWCXAMZTP8857-52-86 16:49:000.8[facility] HermannHEMATOLOGY 2019-03-06 16:49:005.3[facility] TkpntkdUJXAFARNSF1812-91-71 16:49:001.9[facility] HjhvuwiRVHDQBTCVO3961-29-71 16:49:000.5[facility] ZocvjapBNQRITYKKC5927-18-13 16:49:000.1[facility] HzixcwcOKDEIBRCPK0663-77-74 16:49:000.1[facility] ZPBHPSKNYQ2265-16-29 18:09:009.1[facility] ZoyejrwMYAYIJLFAX0600-58-27 18:09:00 4.54[facility] CsdgymxFPVHOVEGDV0512-93-16 18:09:0014.4[facility] HermannHEMATOLOGY 2019-03-03 18:09:0042.6[facility] AkfsphqHABJLRGGOV8895-53-79 18:09:0093.8[facility] IxhmssbRIOHIVXXAJ3537-14-79 18:09:00 Test Item Value Reference Range Interpretation Comments MCH (test code = MCH) 31.8 pg 27.0-31.0 [facility] UiwltqvSLEWUADBKC8042-83-94 18:09:0033.9[facility] HermannHEMATOLOGY 2019-03-03 18:09:0013.5[facility] OlvnlnbWSIUITOBCI8075-06-17 18:09:43886Dizrkdiv OntvnriVJUUMLJQUH1630-70-60 18:09:007.1[facility] CmfioxvUOTBHQYFNY3255-72-95 18:09:0062.0[facility] PnnzvixVIEUFYOMBC9301-75-64 18:09:0027.7[facility] FASDVTLEMF5200-43-25 18:09:008.emorial WkdesyfRMFIKVWLOU0782-40-54 18:09:000.6 [facility] GkypnbzFUYACXOPGY9177-99-98 18:09:001.1[facility] HermannHEMATOLOGY 2019-03-03 18:09:005.6[facility] YsnljifRKIHPPMOVL3425-99-20 18:09:002.5[facility] KkqdfgwWAADVBRZJM4579-73-39 18:09:000.8[facility] SrqbtfrOBIVGBQDOG3250-59-21 18:09:000.1[facility] KemjmykFSUDVRTUNK3883-96-29 18:09:000.1[facility]] CULTURE, URINE, FIWWDFI4402-77-30 12:00:00 Test Item Value Reference Range Interpretation Comments CULTURE (test code = See Comment CULTURE , URINE, CULTURE) ROUTINE LYUBOV RO NUMBER: [id number] TEST STATUS: FINAL SPECIMEN SOURCE: URINE , CLEAN CATCH SPECIMEN QUALITY: ADEQU ATE RESULT: Multiple organi sms present, each l ess than 10,000 CFU/mL . These organisms, comm only found on external and internal genita steven, are considered to be colonizers. No further testing perform ed. [facility][] DRUG SCREEN,COMPREHENSIVE (URINE)2019-02-11 14:49:00 Test Item [...] RELAXANTS PLEASE REFER TO CURRENT DIRECTORY OF RVICES FOR SPECIFICS ONWHI CH DRUGS ARE TESTED. [facility] Abdomen Doppler [id number] 11:02:00Patient Name: TODD GASPAROB: 1980; Age: 38 years y/o FemaleMR: [id number] ULTRASOUND with Doppler studiesHistory: splenomegaly Technique: The [...] right nephrectomy.3. Normal Dopplerstudies as described above.SL: [id number]--Nibs by: Kwaku Hedrick MDDictated Date/time: 02/10/19 15:13Electronically Signed by: Kwaku Hedrick MD 02/10/1915:20FINAL REPORT [facility]] CALPROTECTIN, [id number] 14:43:01 Test Item Value Reference Range Interpretation Comments Calprotectin (test 30 ug/g 0-120 Concentra tion code = Calprotectin) Interpr etation Follow-Up<16 - 50 ug/g Normal None>50 -120 ug/g B orderline Re-evaluate in 4-6 weeks >120 u g/g Abnormal Repeat as clinically indicatedPerfor med At: BN [facility] [id number] [facility] [place] [id number] ra Shanthi SANDOVAL Ph:[phone] [facility] PhysiciansXRAY Clavicle Bilateral [id number] 14:03:00 Clinical Indication: - M89.8X1 Other specified disorders of bone, shoulder,M79.18 Myalgia, other site, M25.50 Pain in unspecified joint, M94.0 Chondrocostal junction syndrome [Tietze]; claviclepain for 5 daysComparison: NoneTECHNIQUE: AP and axial views of the bilateral claviclesFINDINGS: No acute fracture or malalignment is identified. Thesternoclavicular joints are within normal limits as are the acromioclavicularjoints.No soft tissue abnormality is identified.IMPRESSION: No acute abnormality.SL: [id number]--Brkf by: Oj Boswell MDDictated Date/time: 01/30/19 14:33Electronically Signed by: Oj Boswell MD 01/30/1914:34FINAL REPORTUnIntermountain Healthcare Physicians[[facility]] HEPATIC FUNCTION [id number] 14:45:01 Test Item Value Reference Range Interpretation Comments Total Protein (test 7.5 g/dl 6.4-8.4 code = 2885-2) Albumin Lvl (test 3.9 g/dl 3.5-5.0 code = 1751-7) Bili Total (test 0.5 mg/dl 0.2-1.3 code = 1974-) Bilirubin Direct 0.1 mg/dl 0.0-0.3 (test code = 1967-7) Bilirubin Indirect 0.4 mg/dl 0.0-1.0 (test code = 1970-) Alk Phos (test code 53 u/l 39-136 The pedi atric reference = 1783-0) ranges for this test represent a CLSI-basedtrans ference of the CALIPER rohan abase of pediatric refer ence intervals to e[employer] [place] analyzer (Clinical Biochemistry 46 (2013): 2083-3822). [facility] has not internally validated these reference ranges and therefore they should be used only in e context of a thoroughcl inical assessment. AST (test code = 11 u/l 0-37 31021-2) ALT (test code = 20 u/l 0-65 1743-4) Globulin (test code 3.6 g/dl 2.7-4.2 = 25919-0) A/G Ratio (test 1.1 0.7-1.6 code = 1759-0) [facility][H] Celiac Pnl w/Rflx Endomy Ab [id number] 14:45:01 Test Item Value Reference Range Interpretation Comments IgA Lvl (test code = 2458-8) 234.0 mg/dl 68.0-378.0 Gliadin (Deamidated Peptide)IgA <0.2 <=14.9 Ab (test code = 25451-5) Gliadin (Deamidated Peptide)IgG 0.6 U/ml <=14.9 Ab (test code = 62566-1) Tissue Transglutaminase (tTG) IgA <0.5 <=14.9 (test code = 42497-6) Tissue Transglutaminase (tTg) IgG <0.8 <=14.9 (test code = 65307-4) [facility][H] LUNDBERG VnbcbEtxf8881-81-80 14:45:01 Test Item Value Reference Range Interpretation Comments Bili Total (test code 0.5 mg/dl 0-1 = 1975-2) ALT (test code = 20 u/l 0-65 1743-4) AST (test code = 11 u/l 0-37 22199-0) Fibrosis Score (test 0.04 0.00-0.21 code = [...] Macroglob (test 224 mg/dl 110-276 code = 86385-4) Haptoglobin; Above 208 mg/dl 34-200 High Threshold (test code = 63934-4) Apolipoprotein A-1 170 mg/dl 116-209 (test code = Apolipoprotein A-1) GGT (test code = 18 {iu/l} 0-60 2324-2) Chol (test code = 137 mg/dl 534-619 1375-3) Glucose Lvl (test 96 mg/dl 65-99 Adult refe rence range code = 2345-7) values reflec t the clinical guidel inesof the [place] [employer]. Trig; Above High 182 [...] q uestions regarding this report please contact [employer] service at . Referenc es:1. Latanya Bradshaw et al. Diagnostic Valu e of Biochemical Mar kers (FibroTest) for the prediction of L iver Fibrosis in p atients with Non-Alcoho lic Fatty Liver Dis ease. BMC Gastroent erology 2006; 6:6.2. Keyshawn Bates. et al. The Diagnostic Valu e of [...] 2006; 6:34 doi:10.1186/147 1-230X-6 -34.Performed A t: BN [facility] [address] [address] [place], [place] [id number] susana Maki MD Ph:[phone] [facility][H] CK Ifeuqtksfy8949-98-53 10:21:01 Test Item Value Reference Range Interpretation [...] [facility] (test code = Creatine Aaron [address] Kinase BB) [address] [place], [place] [id number] h CN MD Ph:[phone] rformed At: [facility] [address] [place], [place] [id number] Kyle L MD Ph:[phone] [facility][H] Quantiferon Incubationa w/ Reflex to TB Gold Ablh9524-61-31 10:21:01 Test Item Value Reference Range Interpretation Comments Quantiferon Incubation Performed At: H D Incubation (test performed. [facility] code = Quantiferon [address] Incubation) [place], [place] [id number] judith Domínguez MD Ph:[phone] Quantiferon - TB Negative Negative Performed A t: BN Gold Plus (test [facility] code = Quantiferon [address]1447 - TB Gold Plus) [place], [place] [id number] Maki MD Ph:[phone] [facility][H] Quantiferon Incubationa w/ Reflex to TB Gold Luse3632-13-90 10:21:01 Test Item Value Reference Range Interpretation Comments Quantiferon Criteria Comment The Vasquez ntiFERON-TB (test code = Gold Plus resul t is Quantiferon determined Criteria) bysubtracting t he Nil value from [facility] TB antigen (Ag) be.The mitogen tube se rves as a [...] BN code = Mitogen - [facility] NIL) [address] [id number] ra Shanthi SANDOVAL Ph:[phone] [facility] PhysiciansXRAY Shoulder series [id number] 10:49:00EXAM: XR SHOULDER 3 VIEWSDATE: 01/13/2019 10:49 [...] 13:48Electronically Signed by: Erik Foster MD 01/13/1913:49FINAL REPORTUnIntermountain Healthcare PhysiciansXRAY Spine lumbar AP lateral [id number] 10:49:00EXAM: XR LUMBAR SPINE 2 VIEWSDATE: 01/13/2019 [...] 17:49Electronically Signed by: Audie Pardo MD 01/13/1917:50FINAL REPORTUnIntermountain Healthcare PhysiciansXRAY Spine cervical 2 or 3 view [id number] 10:49:00EXAM: XR CERVICAL SPINE 3 VIEWSDATE: 01/13/2019 [...] 17:50Electronically Signed by: Audie Pardo MD 01/13/1917:50FINAL REPORTUnIntermountain Healthcare PhysiciansXRAY Knee 1-2 Views Bilateral [id number] 10:48:00EXAM: XR BILATERAL KNEE 2 VIEWSDATE: 01/13/2019 [...] 13:29Electronically Signed by: Erik Foster MD 01/13/1913:30FINAL REPORTUnIntermountain Healthcare PhysiciansXRAY Hip bilateral w pelvis and both lat hips [id number] 10:48:00EXAM: XR BILATERAL HIP 2 VIEWS AND [...] 13:35Electronically Signed by: Erik Foster MD 01/13/1913:37FINAL REPORTUnIntermountain Healthcare PhysiciansXRAY Chest 2 views [id number] 2019-01-13 10:47:00EXAM: XR CHEST 2 VIEWSDATE: 01/13/2019 [...] by: Luis A Schumacher MD PH 01/14/1912:50FINAL REPORTUnIntermountain Healthcare Physicians[[facility]] URINALYSIS, COMPLETE W/REFLEX TO [id number] 10:10:01 Test Item Value Reference Range Interpretation Comments UA Color (test code = 5778-6) Lucero UA Turbidity; Abnormal (test code Marked Clear A = 19219-1) UA Spec Grav; Above High Threshold 1.032 <=1.030 (test code = 5810-7) UA pH (test code = 5803-2) 5.0 5.0-8.0 UA Protein; Abnormal (test code = 30 mg/dl Negative A 12287-2) UA Glucose (test code = 82665-0) Negative Negative UA Ketones; Abnormal (test code = Trace Negative A 43758-5) UA Bili (test code = 5770-3) Negative Negative UA Blood; Abnormal (test code = Large Negative A 5794-3) UROBILINOGEN (test code = 18312-1) <=1.0 0.1-1.0 UA Nitrite (test code = 5802-4) Negative Negative UA Leuk Est (test code = 5799-2) Negative Negative UA RBC; Above High Threshold (test 10 {/HPF} 0-2 code = 52873-0) UA WBC; Above High Threshold (test 8 {/HPF} 0-5 code = 49357-4) UA Bacteria (test code = 50625-0) Few None Seen UA Mucus; Abnormal (test code = Many None Seen A 8247-9) UA Sq Epi (test code = 28619-7) Occasional Few [facility][] PROTEIN, TOTAL W/CREAT, RANDOM URINE 2019-01-13 10:10:01 Test Item Value Reference Range Interpretation Comments U Creatinine (test 303.00 mg/dl No establ ished code = 2161-8) reference ran ge. Urine Protein Level 51.5 mg/dl No estab lished (test code = 2888-6) referen ce ranges. U Prot/Creat (test 0.17 code = 2890-2) [facility][] HEPATITIS B SURFACE ANTIGEN W/REFL CONFIRM 2019-01-13 10:10:01 Test Item Value Reference Range Interpretation Comments Hepatitis B Surface Antigen (test Negative Negative code = 5195-3) [facility]] HEPATITIS C [id number] 10:10:01 Test Item Value Reference Range Interpretation Comments Hepatitis C Antibody (test code = Negative 13842-5) [facility][] CYCLIC CITRULLINATED PEPTIDE (CCP) AB (IGG) 2019-01-13 10:10:01 Test Item Value Reference Range Interpretation Comments Cyclic Citrulline Peptide Antibody <0.5 <=2.9 (test code = 17268-0) [facility][O] Urine Dipstick (In Office)2018-12-29 16:04:00 Test Item Value Reference Range Interpretation Comments Glucose (test code = Glucose) 100 MG/dL LEUKOCYTES (test code = LARGE LEUKOCYTES) NITRITE (test code = 02112-1) POSITIVE UROBILINOGEN (test code = 4.0 E.U./dL 87596-8) PROTEIN (test code = 39795-7) >=300 MG/dL pH (test code = pH) 5.5 URINE BLOOD (test code = 34951-7) SMALL SPECIFIC GRAVITY (test code = >=1.030 2965-2) KETONES (test code = 08877-5) 15 MG/dL BILIRUBIN (test code = 42779-7) MODERATE COLOR URINE (test code = 5778-6) LUCERO APPEARANCE (test code = 5767-9) CLEAR [facility]] URINALYSIS, [id number] 15:10:01 Test Item Value Reference Range Interpretation Comments UA Turbidity; Abnormal (test code Slight Clear A = 84728-5) UA Spec Grav; Above High Threshold 1.040 <=1.030 (test code = 5810-7) UA pH (test code = 5803-2) 5.0 5.0-8.0 UA Protein; Abnormal (test code = 100 mg/dl Negative A 92771-9) UA Glucose (test code = 46712-4) Negative Negative UA Ketones (test code = 01429-5) Negative Negative UA Bili (test code = 5770-3) Negative Negative UA Blood; Abnormal (test code = Small Negative A 5794-3) UROBILINOGEN; Above High Threshold 4.0 mg/dl 0.1-1.0 (test code = 80402-6) UA Nitrite; Abnormal (test code = Positive Negative A 5802-4) UA Leuk Est (test code = 5799-2) Negative Negative UA RBC; Above High Threshold (test 27 {/HPF} 0-2 code = 28676-3) UA WBC; Above High Threshold (test 14 {/HPF} 0-5 code = 30577-5) UA Bacteria (test code = 50446-0) Occasional None Seen UA Mucus; Abnormal (test code = Moderate None Seen A 8247-9) UA Sq Epi; Abnormal (test code = Moderate Few A 66153-9) UA Color (test code = 5778-6) Lucero [facility]] CBC (INCLUDES DIFF/PLT)2018-12-29 15:10:01 Test Item Value Reference Range Interpretation Comments WBC; Above High Threshold (test 10.8 {K/CMM} 3.7-10.4 code = 6690-2) RBC (test code = 789-8) 4.47 {M/CMM} 4.20-5.40 Hgb (test code = 718-7) 14.4 g/dl 12.0-16.0 Hct (test code = 55473-5) 42.7 % 36.0-48.0 MCV (test code = 787-2) 95.6 fL 80.0-98.0 MCH; Above High Threshold (test 32.1 pg 27.0-31.0 code = 785-6) MCHC (test code = 786-4) 33.6 g/dl 32.0-36.0 RDW (test code = 788-0) 13.7 % 11.5-14.5 Platelet (test code = 25280-4) 335 {K/CMM} 133-450 Mean Platelet Volume (test code 8.3 fL 7.4-10.4 = 07922-4) [facility]] Vpkhgdzraxrh0351-30-55 15:10:01 Test Item Value Reference Range Interpretation Comments Segmented Neutrophils (test code 64.3 % 45.0-75.0 = 48874-3) Monocytes (test code = 73311-7) 7.6 % 2.0-12.0 Lymphocytes (test code = 92757-2) 26.8 % 20.0-40.0 Eosinophils (test code = 08749-5) 0.7 % 0.0-4.0 Basophils (test code = 706-2) 0.6 % 0.0-1.0 Segs-Bands # (test code = 6.9 {K/CMM} 1.5-8.1 85954-3) Lymphocytes # (test code = 2.9 {K/CMM} 1.0-5.5 13835-7) Monocytes # (test code = 31113-1) 0.8 {K/CMM} 0.0-0.8 Eosinophils # (test code = 0.1 {K/CMM} 0.0-0.5 86413-5) Basophils # (test code = 83468-8) 0.1 {K/CMM} 0.0-0.2 [facility][Q] HIV AB, HIV 1/2, EIA, WITH [id number] 15:10:01 Test Item Value Reference Range Interpretation Comments HIV Ag/Ab 4th Gen Negative Negative HIV test r esults should be (test code = considered posi tive only 50069-4) when both the s creening andthe confirma tory tests are positive. A negative confirmatory te st in patientswith a positive screening test does not exclude HIV inf ection. If clincallywarran svetlana, an HIV RNA quantitativ e test should be order ed. [facility]] CMP W/[id number] 15:10:01 Test Item Value Reference Range Interpretation Comments Sodium Level 143 {mEq/l} 135-145 (test code = 2951-2) Potassium Level 4.2 {mEq/l} 3.5-5.1 (test code = 2823-3) Chloride Level 107 {mEq/l} 95-109 (test code = 5-0) Carbon Dioxide 25 {mEq/l} 24-32 (test code = 2027-9) AGAP (test code = 15.2 {mEq/l} 10.0-20.0 96932-6) Glucose Lvl; 106 mg/dl 70-99 Adult reference range Above High values reflect the Threshold (test clinical magali delinesof the code = 2345-7) [employer]. Creatinine Lvl 1.10 mg/dl 0.50-1.40 (test code = 2160-0) Blood Urea 21 mg/dl 7-22 Nitrogen (test code = 3094-0) BUN/Creatinine 19 6-25 Ratio (test code = 3097-3) Total Protein 7.1 g/dl 6.4-8.4 (test code = 2885-2) Albumin Lvl (test 3.7 g/dl 3.5-5.0 code = 1751-7) Globulin (test 3.4 g/dl 2.7-4.2 code = 67185-4) A/G Ratio (test 1.1 0.7-1.6 code = 1759-0) Calcium Level 9.3 mg/dl 8.5-10.5 Total (test code = 88946-7) ALT (test code = 47 u/l 0-65 1743-4) AST (test code = 18 u/l 0-37 98110-2) Alk Phos (test 56 u/l 39-136 code = 1783-0) Bili Total (test 0.3 mg/dl 0.2-1.3 code = 1975-2) eGFR (test code = 64 The eGFR i s calculated 45063-2) {ML/MIN/1.7} using the CKD-E PI formula. In [...] National Kidney Disease Education Progr am(NKDEP) which azam zuluaga recommends that when the eGFR is used in patientswith ex tremes of body mass index for purposes of francheska g dosing, the eGFR should be multiplied by t he estimated BMI. [facility][] LIPID PANEL WITH REFLEX TO DIRECT LDL 2018-12-29 15:10:01 Test Item Value Reference Range Interpretation Comments LDL (test code = 11810-0) 36 mg/dl <=99 Chol (test code = 2093-3) 124 mg/dl <=199 Trig; Above High Threshold (test 223 mg/dl <=149 code = 2571-8) HDL Cholesterol; Below Low 43 mg/dl >=61 Threshold (test code = 2085-9) CHD Risk; Below Low Threshold (test 2.88 3.90-5.80 code = 46448-3) VLDL (test code = VLDL) 45 [facility]] TSH, 3RD GENERATION W/REFLEX TO FT4 2018-12-29 15:10:01 Test Item Value Reference Range Interpretation Comments TSH (test code = 11828-6) 2.550 {uIU/ml} 0.360-3.740 [facility][H] CRP, hs, Cardiac [id number] 15:10:01 Test Item Value Reference Range Interpretation Comments C-Reactive Protein High 25.9 mg/L Low Risk: Sensitivity (test code = < 1.0 mg/LAverage 82462-6) Risk: 1.0 - 3.0 mg/LHigh Risk: >3.0 mg/LInflammatio n: >10.0 mg/L [facility]] SED RATE BY MODIFIED [id number] 15:10:01 Test Item Value Reference Range Interpretation Comments Sedimentation Rate (test code = 17 {mm/hr} 0-20 61400-9) [facility]] HEMOGLOBIN [id number] 15:10:01 Test Item Value Reference Range Interpretation Comments Hemoglobin A1c; Above High Threshold 5.7 % <=5.6 (test code = 4548-4) [facility]] ABDOUL PANEL, [id number] 15:10:01 Test Item Value Reference Range Interpretation Comments Antinuclear Antibody Negative Negative Because the ABDOUL was Screen (test code = Negative , the Reflex [id number]) assays for Anti-dsDNA, SM/ CRUDE UNIT OPERATOR, Deb/La (SSA/S SB) were not perfor med. [facility]
--- OUTSIDE RECORDS SUMMARY | 2020-01-27 20:34 | XMS REPORT | Summary of Care ---
:1980 Author Name Jaki Knutson LVN Address Unavailable Unavailable , Care Team Providers Name Role Phone JITENDRA Garcia, ALANA Unavailable Unavailable HARLEY Garcia, ROXANN Unavailable Unavailable ABEL Garcia, SHAW Unavailable Unavailable STU Garcia, HOLGER Unavailable Unavailable JAZLYN CAR, COREY Unavailable Unavailable DOTTY Garcia, HECTOR Unavailable Unavailable VIGNESH YEEN, KOBE Unavailable Unavailable KAY TAPEMAN, ISAI Unavailable Unavailable PERSAUD DO, NA LY Unavailable Unavailable JAZLYN CUSTOMER SUCCESS DIRECTOR, COREY Unavailable Unavailable JAZLYN SANDOVAL, PHAN Unavailable Unavailable HARLEY SANDOVAL [place], ROXANN Unavailable Unavailable Abel SANDOVAL, Shaw Unavailable Unavailable NEERAJ SANDOVAL, RANJANA Unavailable Unavailable Elizabet SANDOVAL, Zeferino Unavailable Unavailable KANE SANDOVAL, HOME Wilson Unavailable Unavailable LANDY SANDOVAL, BRANDT Rivera Unavailable Unavailable Jigar Olivia MD Unavailable Unavailable JAZLYN SANDOVAL [place], ELTON BOLANOS Unavailable Unavailable JITENDRA SANDOVAL, ALANA Unavailable Unavailable Rai SANDOVAL, Misael Unavailable Unavailable DOTTY SANDOVAL, HECTOR Unavailable Unavailable STU SANDOVAL, HOLGER LOMELI Unavailable Unavailable Unavailable Unavailable Unavailable Functional Status Name Dates Details Functional status health issues are not documented Status: Name Dates Details Cognitive status health issues are not documented Status: Problems Name Dates Details Injury, foot, left, initial encounter (959.7, S99.922A) Status: Active Endometriosis (617.9, N80.9) Status: Act luzmaria Vaginal candidiasis (112.1, B37.3) Statu s: Active Abnormal urinalysis (791.9, R82.90) Stat us: Active Encounter for monitoring golimumab therapy (V58.83, Z51.81) Status: Active 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 current azathioprine therapy (V58.69 , Z79.899) Status: Active Chronic right sacroiliac joint pain (724.6, M53.3) Status: Active Chronic left shoulder pain (719.41, M25.512) Status: Active On corticosteroid therapy (V58.65, Z79.52) Status: Active Asthma (493.90, J45.909) Status: Active Chronic neck pain (723.1, M54.2) Status: Active Depression (311, F32.9) Status: Active Dyspnea (786.09, R06.00) Status: Active History of rheumatoid arthritis (V13.4, Z87.39) Status: Active Obesity, morbid (more than 100 lbs over ideal weight or BMI > 40) (278.01, E66.01) Status: Active PCOS (polycystic ovarian syndrome) (256.4, E28.2) Status: Active Rheumatoid arthritis (714.0, M06.9) Stat us: Active RILEY (obstructive sleep apnea) (327.23, G47.33) Status: Active Palpitations (785.1, R00.2) Status: Acti ve Chest pain at rest (786.50, R07.9) Statu s: Active Chest pain, atypical (786.59, R07.89) St atus: Active Recurrent UTI (urinary tract infection) (599.0, N39.0) Status: Active Anxiety and depression (300.00, F41.9) S tatus: Active Hypertriglyceridemia (272.1, E78.1) Stat us: Active Spleen enlargement (789.2, R16.1) Status : Active Myofascial pain syndrome (729.1, M79.18) Status: Active Pain of left clavicle (733.90, M89.8X1) Status: Active Pain of right clavicle (733.90, M89.8X1) Status: Active Osteoarthritis (715.90, M19.90) Status: Active Arthralgia of both knees (719.46, M25.561) Status: Active Sprain of calcaneofibular ligament of left ankle, sequela (9 05.7, S93.412S) Status: Active Urethritis, nonspecific (099.40, N34.1) Status: Active Drug testing, pre-employment (V70.5, Z02.1) Status: Active Tendinitis of left pectoralis major (726.10, M75.82) Status: Active Tendinitis of right pectoralis major (726.10, M75.81) Status: Active Hypermobility arthralgia (719.40, M25.50) Status: Active Costochondritis (733.6, M94.0) Status: A ctive Arthralgia of right knee (719.46, M25.561) Status: Active Fibromyalgia (729.1, M79.7) Status: Acti ve Chronic right shoulder pain (719.41, M25.511) Status: Active Sprain of calcaneofibular ligament of le ft ankle, subsequent encounter (V58.89, S93.412D) Status: Active Abdominal pain (789.00, R10.9) Status: A ctive Diarrhea (787.91, R19.7) Status: Active Chronic GERD (530.81, K21.9) Status: Act luzmaria Colitis (558.9, K52.9) Status: Active Ulcerative colitis (556.9, K51.90) Statu s: Active Humerus lesion, right (733.90, M89.9) St atus: Active Tear of right infraspinatus tendon, initial encounter (840.3 , S46.811A) Status: Active Right supraspinatus tendinitis (726.10, M75.91) Status: Active Tendinitis of right infraspinatus tendon (726.10, M75.81) Status: Active Facial rash (782.1, R21) Status: Active Ankle pain, left (719.47, M25.572) Statu s: Active Headache (784.0, R51) Status: Active Chronic left sacroiliac pain (724.6, M53.3) Status: Active Back muscle spasm (724.8, M62.830) Statu s: Active Lumbar spondylosis (721.3, M47.816) Stat us: Active Lumbar facet arthropathy (721.3, M47.816) Status: Active Other synovitis and tenosynovitis, left ankle and foot (727. 06, M65.872) Status: Active Chronic low back pain (724.2, M54.5) Sta tus: Active Morbid obesity (278.01, E66.01) Status: Active Lumbar pain (724.2, M54.5) Status: Activ e PTSD (post-traumatic stress disorder) (309.81, F43.10) Status: Active Anxiety (300.00, F41.9) Status: Active Other synovitis and tenosynovitis, right ankle and foot (727 .06, M65.871) Status: Active Medications Name Dates Details Propranolol HCl - 20 MG Oral Tablet TAKE ONE TABLET BY MOUTH TWICE A DAY NEEDED Quantity: 60 Refills: 2 HECTOR STORM M.D. Start : 29-Dec-2018 Active traZODone HCl - 100 MG Oral Tablet TAKE ONE TABLET BY MOUTH AT BEDTIME Quantity: 90 Refills: 1 HECTOR STORM M.D. Start : 29-Dec-2018 Active Neurontin 800 MG Oral Tablet TAKE 1 TABLET 3 TIMES DAILY. Quantity: 90 Refills: 3 JITENDRA Garcia ALANA Start : 29-Dec-2018 Active Baclofen 20 MG Oral Tablet TAKE 1 TABLET 3 TIMES DAILY NEEDED. Quantity: 90 Refills: 3 ALANA HAM M.D. Start : 29-Dec-2018 Active Trintellix 10 MG Oral Tablet Take one tablet daily Quantity: 90 Refills: 1 HECTOR STORM M.D. Start : 13-Jan-2019 Active 07/13 1-20 MG-MCG Oral Tablet TAKE 1 TABLET DAILY. Quantity: 3 Refills: 3 COREY HOBSON APRN Start : 14-Jan-2019 Active 28 Tablet Pack Omeprazole 40 MG Oral Capsule Delayed Release TAKE 1 CAPSULE DAILY Quantity: 30 Refills: 6 KOBE MEDELLIN APRN Start : 23-Jan-2019 Active Diclofenac Sodium 1 [...] TO TWO PUFFS BY MOUTH EVERY 4 HOURS NEEDED Quantity: 1 Refills: 5 ABEL M.D., SHAW Start : 02-Feb-2019 Active 6.7 GM Inhaler CPAP Continuous Positive Airway Pressure Please provide patient with all necessary CPAP supplies including mask (please fit), tubing, filters, etc. Good for ONE YEAR Quantity: 1 Refills: 0 ABEL Garcia SHAW Start : 09-Mar-2019 Active Fluticasone-Salmeterol 500-50 MCG/DOSE Inhalation Aerosol Powder Breath Activated INHALE ONE PUFF BY MOUTH TWICE A DAY Quantity: 1 Refills: 3 ABEL Garcia SHAW Start : 08-Apr-2019 Active 60 Each Pack Ibuprofen 200 MG Oral Tablet Refills: 0 Start : 04-May-2019 Active Pregabalin 75 MG Oral Capsule TAKE 1 CAPSULE 3 TIMES DAILY. Quantity: 30 Refills: 0 ISAI VILLANUEVA APRN Start : 19-May-2019 Active Trezix 320.5-30-16 MG Oral Capsule TAKE 2 CAPSULES BY MOUTH EVERY 4 TO 6 HOURS NEEDED FOR PAIN Quantity: 60 Refills: 0 ISAI VILLANEUVA APRN Start : 13-Jul-2019 Active Mesalamine 400 MG Oral Capsule Delayed Release TAKE 2 CAPSULE Twice daily TDD:1.6gm Quantity: 120 Refills: 5 OBKOBE LEON APRN Start : 19-Aug-2019 Active methylPREDNISolone 4 MG Oral Tablet Therapy Pack TAKE DIRECTED Quantity: 1 Refills: 0 HOLGER PERAZA M.D. Start : 24-Aug-2019 Active 21 Tablet Pack Allergies and Adverse Reactions Name Dates Details CeleBREX CAPS (Allergy) Reaction: Anaphy laxis Status: Active Ciprofloxacin HCl TABS (Allergy) Status: Active Keflex TABS (Allergy) Status: Active Levaquin TABS (Allergy) Status: Active Sulfa Drugs (Allergy) Reaction: Anaphyla xis Status: Active Past Medical History Name Dates Details PCOS (polycystic ovarian syndrome) (256.4, E28.2) Status: Active Ulcerative colitis (556.9, K51.90) Statu s: Active History of asthma (V12.69, Z87.09) Statu s: Resolved History of attention deficit hyperactivity disorder (ADHD) ( V11.8, Z86.59) Status: Resolved History of Parks's esophagus (V12.79, Z87.19) Status: Resolved History of Cervical radicular pain (723.4, M54.12) Status: Resolved History of depression (V11.8, Z86.59) St atus: Resolved History of Gastroparesis (536.3, K31.84) Status: Resolved History of hemorrhoids (V13.89, Z87.19) Status: Resolved History of Medial meniscus tear (836.0, S83.249A) Status: Resolved History of Other synovitis and tenosynov itis, left ankle and foot (727.06, M65.872) Status: Resolved History of pancreatitis (V12.79, Z87.19) Status: Resolved History of peptic ulcer (V12.71, Z87.11) Status: Resolved Procedures Procedure Dates Details MR Jung wo contrast [id number] Date: 19-Oct-2019 History of Gallbladder surgery Completed History of Kidney surgery Completed History of Ureterectomy Completed History of Endometrial ablation Complete d History of Adenoidectomy Completed History of Cholecystectomy [...] Details - Status: Name Dates Details Never smoked tobacco (finding) Vital Signs Date Test Result Details No Known Vitals to report Results Date Description Value Details Results not documented Plan of Care Name Dates Details Planned Observations Planned Goals not documented Planned Encounters Appointment; BRANDT BILL M.D. On: 10-Nov-2019 10 :45 Appointment; HECTOR STORM M.D. On: 27-Jan-2020 15:30 Interventions Provided Medication ChangesFluticasone-Salmeterol 500-50 MCG/DOSE Inhalation Aerosol Powder Breath Activated - RenewLabs/Procedures/ImagingTobacco Use Screening; Done: 14 Jan 2019PlanPlan - check CK given muscle weakness- likely needs bone scan given termite control service representative prednisone usage - will defer to rheum- [...] echo of heart, sleep study, lung function testingDiscussion/SummaryImpression: obstructive sleep apnea. Currently, the condition is [...]
--- OUTSIDE RECORDS SUMMARY | 2020-01-27 20:34 | XMS REPORT | Summary of Care ---
:1980 Author Organization [facility] Address [address] [place] [address] Care Team Providers Name Role Phone JITENDRA Garcia, ALANA Unavailable Unavailable HARLEY Garcia, ROXANN Unavailable Unavailable ABEL Garcia, SHAW Unavailable Unavailable STU Garcia, HOLGER Unavailable Unavailable JAZLYN CAR, COREY Unavailable Unavailable DOTTY Garcia, HECTOR Unavailable Unavailable VIGNESH CAR, KOBE Unavailable Unavailable KAY CAR, ISAI Unavailable Unavailable PERSAUD DO, NA LY Unavailable Unavailable JAZLYN STEWARD, COREY Unavailable Unavailable JAZLYN SANDOVAL, PHAN Unavailable Unavailable HARLEY SANDOVAL [place], ROXANN Unavailable Unavailable Abel SANDOVAL, Shaw Unavailable Unavailable NEERAJ SANDOVAL, RANJANA Unavailable Unavailable Elizabet SANDOVAL, Zeferino Unavailable Unavailable KANE SANDOVAL, HOME Wilson Unavailable Unavailable LANDY SANDOVAL, BRANDT Rivera Unavailable Unavailable Jigar Alcala MD Unavailable Unavailable JAZLYN SANDOVAL [place], ELTON BOLANOS Unavailable Unavailable JITENDRA SANDOVAL, ALANA Unavailable Unavailable aRi SANDOVAL, Eloise Unavailable Unavailable DOTTY SANDOVAL, HECTOR [...] therapy (V58.83, Z51.81) Status: Active Encounter for custodial current azathioprine therapy (V58.69 , Z79.899) Status: [...] 3 TIMES DAILY. Quantity: 90 Refills: 3 ASHLEY HAM M.D.A Start : 29-Dec-2018 Active Baclofen 20 MG [...] NEEDED Quantity: 1 Refills: 5 ABEL M.D., CHONG Start : 02-Feb-2019 Active 6.7 GM Inhaler [...] ISAI VILLANUEVA APRN Start : 13-Jul-2019 Active Mesalamine 400 MG Oral Capsule Delayed Release TAKE 2 CAPSULE Twice daily TDD:1.6gm Quantity: 120 Refills: 5 KOBE MEDELLIN APRN Start : 19-Aug-2019 Active methylPREDNISolone 4 MG Oral Tablet Therapy Pack TAKE DIRECTED Quantity: 1 Refills: 0 HOLGER PERAZA M.D. Start : 24-Aug-2019 Active 21 Tablet Pack Fluticasone-Salmeterol 500-50 MCG/DOSE Inhalation Aerosol Powder Breath Activated INHALE ONE PUFF BY MOUTH TWICE A DAY Quantity: 1 Refills: 3 ABEL Garcia CHONG Start : 08-Apr-2019 Active 60 Each Pack CPAP Continuous Positive Airway Pressure Please provide patient with all necessary CPAP supplies including mask (please fit), tubing, filters, etc. Good for ONE YEAR Quantity: 1 Refills: 0 SHAW BUENROSTRO M.D. Start : 09-Mar-2019 Active Allergies and Adverse Reactions Name Dates [...] Procedure Dates Details MR Jung wo contrast [id number] Date: 19-Oct-2019 History of Gallbladder surgery Completed [...] Planned Encounters Appointment; BRANDT BILL M.D. On: 27-Nov-2019 8:0 0 Appointment; HECTOR STORM M.D. On: 27-Jan-2020 15:30 Instructions Name Dates Details Instructions not documented [...] documented Appointment; ROXANN SOUZA M.D. On: 29-Jan-2019 1 5:00 Encounter Diagnosis: Problem not documented Appointment; ROXANN SOUZA M.D. On: 29-Jan-2019 1 5:30 Encounter Diagnosis: Problem not documented Appointment; HECTOR STORM M.D. On: 05-Feb-2019 14:00 Encounter Diagnosis: Problem not documented Appointment; BRANDT BILL M.D. On: 10-Feb-2019 13 :45 Encounter Diagnosis: Problem not documented Appointment; JIGAR ALCALA M.D. On: 03-Mar-2019 11 :30 Encounter Diagnosis: Problem not documented Appointment; KOBE MEDELLIN APRN On: 05-Mar-2019 1 0:30 Encounter Diagnosis: Problem not documented Appointment; BRANDT BILL M.D. On: 17-Mar-2019 11 :00 Encounter Diagnosis: Problem not documented Appointment; ROXANN SOUZA M.D. On: 26-Mar-2019 1 1:30 Encounter Diagnosis: Problem not documented Appointment; HECTOR STORM M.D. On: 13-Apr-2019 12:00 Encounter Diagnosis: Problem not documented Appointment; BRANDT BILL M.D. On: 14-Apr-2019 14 :15 Encounter Diagnosis: Problem not documented Appointment; ZEFERINO PENA M.D. On: 16-Apr-2019 13:0 0 Encounter Diagnosis: Problem not documented Appointment; OTTONIEL CHAU M.D. On: 20-Apr-2019 13: 00 Encounter Diagnosis: Problem not documented Appointment; ALLYSON ARZOLA M.D. On: 04-May-2019 11: 00 Encounter Diagnosis: Problem not documented Appointment; BRANDT BILL M.D. On: 08-May-2019 11 :00 Encounter Diagnosis: Problem not documented Appointment; ISAI VILLANUEVA APRN On: 19-May-2019 8 :00 Encounter Diagnosis: Problem not documented Appointment; BRANDT BILL M.D. On: 23-Jun-2019 11 :15 Encounter Diagnosis: Problem not documented Appointment; ALANA HAM M.D. On: 13-Jul-2019 13:00 Encounter Diagnosis: Problem not documented Appointment; BRANDT BILL M.D. On: 04-Aug-2019 13 :30 Encounter Diagnosis: Problem not documented Appointment; ELOISE DAMON On: 07-Aug-2019 10:00 Encounter Diagnosis: Problem not documented Appointment; BRANDT BILL M.D. On: 13-Aug-2019 9: 45 Encounter Diagnosis: Problem not documented Appointment; HOLGER PERAZA M.D. On: 24-Aug-2019 14:30 Encounter Diagnosis: Problem not documented Appointment; HECTOR STORM M.D. On: 30-Sep-2019 15:30 Encounter Diagnosis: Problem not documented Appointment; BRANDT BILL M.D. On: 16-Oct-2019 10 :30 Encounter Diagnosis: Problem not documented Appointment; ELOISE DAMON On: 23-Oct-2019 12:45 Encounter Diagnosis: Problem not documented Appointment; BRANDT BILL M.D. On: 27-Oct-2019 11: 30 Encounter Diagnosis: Problem not documented Appointment; BRANDT BILL M.D. On: 10-Nov-2019 10 :45 Encounter Diagnosis: Problem not documented
--- OUTSIDE RECORDS SUMMARY | 2020-01-27 20:34 | XMS REPORT | Summary of Care ---
:1980 Author Organization [facility] Address [address] [place] [address] Care Team Providers Name Role Phone JITENDRA [...] JAZLYN SANDOVAL, PHAN Unavailable Unavailable HARLEY SANDOVAL [place], ROXANN Unavailable Unavailable Abel SANDOVAL, Shaw Unavailable Unavailable NEERAJ SANDOVAL, RANJANA Unavailable Unavailable Elizabet SANDOVAL, Zeferino Unavailable Unavailable KANE SANDOVAL, HOME Wilson Unavailable Unavailable LANDY SANDOVAL, BRANDT Rivera Unavailable Unavailable Jigar Alcala MD Unavailable Unavailable JAZLYN SANDOVAL [place], ELTON BOLANOS Unavailable Unavailable JITENDRA SANDOVAL, ALANA [...] therapy (V58.83, Z51.81) Status: Active Encounter for assisted current azathioprine therapy (V58.69 , Z79.899) Status: [...] Procedure Dates Details MR Jung wo contrast [id number] Date: 19-Oct-2019 History of Gallbladder surgery Completed [...] BILL M.D. On: 10-Nov-2019 10 :45 Appointment; KOBE MEDELLIN APRN On: 11-Nov-2019 1 0:45 Appointment; HECTOR STORM M.D. On: 27-Jan-2020 15:30 [...]
--- OUTSIDE RECORDS SUMMARY | 2020-01-27 20:34 | XMS REPORT | Summary of Care ---
:1980 Author Name ABEL Garcia, SHAW Address Unavailable Unavailable , Care Team Providers Name Role Phone JITENDRA Garcia, ALANA Unavailable Unavailable HARLEY Garcia, ROXANN Unavailable Unavailable ABEL Garcia, SHAW Unavailable Unavailable STU Garcia, HOLGER Unavailable Unavailable JAZLYN CAR, COREY Unavailable Unavailable DOTTY Garcia, HECTOR Unavailable Unavailable VIGNESH CAR, KOBE Unavailable Unavailable KAYKUSHAL CAR, ISAI Unavailable Unavailable PERSAUD DO, NA LY Unavailable Unavailable JAZLYN ATMOSPHERIC PHYSICS PROFESSOR, COREY Unavailable Unavailable JAZLYN SANDOVAL, PHAN Unavailable [...] therapy (V58.83, Z51.81) Status: Active Encounter for terminal carman current azathioprine therapy (V58.69 , Z79.899) Status: [...] OFF FOR 12HOURS. Quantity: 1 Refills: 0 JAMALYARIA Steve.Michael, ROXANN Start : 02-Feb-2019 Active 30 Patch [...] Z87.11) Status: Resolved Procedures Procedure Dates Details Ankle wo contrast [id number] Date: 19-Oct-2019 History of Gallbladder surgery Completed [...] muscle weakness- likely needs bone scan given halfway prednisone usage - will defer to rheum- [...]
--- OUTSIDE RECORDS SUMMARY | 2020-01-27 20:35 | XMS REPORT | Summary of Care ---
:1980 Author Organization [facility] Address [address] [place] [address] Care Team Providers Name Role Phone JITENDRA Garcia Unavailable Unavailable HARLEY Garcia Unavailable Unavailable CHITRA Garcia Unavailable Unavailable STU Garcia Unavailable Unavailable JAZLYN CAR Unavailable Unavailable DOTTY Garcia Unavailable Unavailable VIGNESH CAR Unavailable Unavailable KAY YEEN Unavailable Unavailable HUNG VALLE Unavailable Unavailable JAZLYN STEWARD Unavailable Unavailable JAZLYN SANDOVAL Unavailable Unavailable HARLEY SANDOVAL [place] Unavailable Unavailable Chitra SANDOVAL Unavailable Unavailable NEERAJ SANDOVAL Unavailable Unavailable Elizabet SANDOVAL Unavailable Boogie MIDDLETON MD Unavailable Unavailable LANDY SANDOVAL Unavailable Unavailable Corwin SANDOVAL Unavailable Unavailable JAZLYN SANDOVAL [place] Unavailable Unavailable JITENDRA SANDOVAL Unavailable Unavailable Rai SANDOVAL Unavailable Unavailable DOTTY SANDOVAL Unavailable Unavailable STU SANDOVAL Unavailable Unavailable Unavailable Unavailable Unavailable Functional Status [...] therapy (V58.83, Z51.81) Status: Active Encounter for intermission coordinator current azathioprine therapy (V58.69 , Z79.899) Status: [...] MOUTH AT BEDTIME Quantity: 90 Refills: 1 STORM Radha RAMOSInezGARFIELDDerick Start : 29-Dec-2018 Active Baclofen 20 MG [...] Start : 14-Jan-2019 Active 28 Tablet Pack Lidocaine 5 % External Patch APPLY 1 [...] 4 HOURS NEEDED Quantity: 1 Refills: 5 CASTILLO BUENROSTRO M.D. Start : 02-Feb-2019 Active 6.7 GM Inhaler CPAP Continuous Positive Airway Pressure Please provide patient with all necessary CPAP supplies including mask (please fit), tubing, filters, etc. Good for ONE YEAR Quantity: 1 Refills: 0 CASTILLO BUENROSTRO M.D. Start : 09-Mar-2019 Active Trezix 320.5-30-16 MG Oral Capsule TAKE 2 CAPSULES BY MOUTH EVERY 4 TO 6 HOURS NEEDED FOR PAIN Quantity: 60 Refills: 0 ISAI VILLANUEVA APRN Start : 13-Jul-2019 Active Mesalamine 400 MG Oral Capsule Delayed Release TAKE 2 CAPSULE Twice daily TDD:1.6gm Quantity: 120 Refills: 5 KOBE MEDELLIN APRN Start : 19-Aug-2019 Active Diclofenac Sodium 1 % Transdermal Gel APPLY 2 GM OF GEL TO AFFECTED AREA 4 TIMES DAILY. DO NOT APPLY MORE THAN 8 GM DAILY TO ANY ONE AFFECTED AREA. Quantity: 1 Refills: 1 HARLEY GarciaROXANN Start : 29-Jan-2019 Active 100 GM Tube methylPREDNISolone 4 MG Oral Tablet Therapy Pack TAKE DIRECTED Quantity: 1 Refills: 0 STU Garcia HOLGER Start : 24-Aug-2019 Active 21 Tablet Pack Pregabalin 75 MG Oral Capsule TAKE 1 CAPSULE 3 TIMES DAILY. Quantity: 30 Refills: 0 ISAI VILLANUEVA APRN Start : 19-May-2019 Active Ibuprofen 200 MG Oral Tablet Refills: 0 Start : 04-May-2019 Active Fluticasone-Salmeterol 500-50 MCG/DOSE Inhalation Aerosol Powder Breath Activated INHALE ONE PUFF BY MOUTH TWICE A DAY Quantity: 1 Refills: 3 CHITRA Garcia CHONG Start : 08-Apr-2019 Active 60 Each Pack Omeprazole 40 MG Oral Capsule Delayed Release TAKE 1 CAPSULE DAILY Quantity: 30 Refills: 6 KAN MEDELLIN APRNSA Start : 23-Jan-2019 Active Neurontin 800 MG Oral Tablet TAKE 1 TABLET 3 TIMES DAILY. Quantity: 90 Refills: 3 ALANA HAM M.D. Start : 29-Dec-2018 Active Allergies and [...] Status: Resolved Procedures Procedure Dates Details MR uJng wo contrast [id number] Date: 19-Oct-2019 History of Gallbladder surgery Completed [...] 8:00 Encounter Diagnosis: Problem not documented Appointment; CASTILLO BUENROSTRO M.D. On: 14-Jan-2019 8:30 Encounter Diagnosis: Problem not documented Appointment; DICKSON CHAPA On: 14-Jan-2019 9:00 Encounter Diagnosis: Problem not documented Appointment; LARRY CHAPA On: 14-Jan-2019 10:00 Encounter Diagnosis: Problem not documented Appointment; COREY HOBSON APRN On: 14-Jan-2019 13:00 Encounter Diagnosis: Problem not documented Appointment; BILLY PENA M.D. On: 23-Jan-2019 14:00 Encounter Diagnosis: Problem not documented Appointment; ROXANN SOUZA M.D. On: 29-Jan-2019 1 5:00 Encounter Diagnosis: Problem not documented Appointment; ROXANN SOUZA M.D. On: 29-Jan-2019 1 5:30 Encounter Diagnosis: Problem not documented Appointment; HECTOR STORM M.D. On: 05-Feb-2019 14:00 Encounter Diagnosis: Problem not documented Appointment; BRANDT BILL M.D. On: 10-Feb-2019 13 :45 Encounter Diagnosis: Problem not documented Appointment; TADEO ALCALA M.D. On: 03-Mar-2019 11 :30 Encounter [...] :15 Encounter Diagnosis: Problem not documented Appointment; BILLY PENA M.D. On: 16-Apr-2019 13:0 0 Encounter [...]
--- OUTSIDE RECORDS SUMMARY | 2020-01-27 20:36 | XMS REPORT | Summary of Care ---
:1980 Author Organization [facility] Address [address] [place] [address] Care Team Providers Name Role Phone JITENDRA Garcia Unavailable Unavailable HARLEY Garcia Unavailable Unavailable CHITRA Garcia Unavailable Unavailable STU Garcia Unavailable Unavailable JAZLYN CAR Unavailable Unavailable DOTTY Garcia Unavailable Unavailable VIGNESH CAR Unavailable Unavailable KAY YEEN Unavailable Unavailable HUNG VALLE Unavailable Unavailable JAZLYN STEWARD Unavailable Unavailable JAZLYN SANDOVAL Unavailable Unavailable HARLEY SANDOVAL [place] Unavailable Unavailable Chitra SANDOVAL Unavailable Unavailable NEERAJ SANDOVAL Unavailable Unavailable Elizabet SANDOVAL Unavailable Boogie MIDDLETON MD Unavailable Unavailable LANDY SANDOVAL Unavailable Unavailable Corwin SANDOVAL Unavailable Unavailable JAZLYN SANDOVAL [place] Unavailable Unavailable JITENDRA SANDOVAL Unavailable Unavailable Rai [...] (V58.83, Z51.81) Status: Active Encounter for terminal press operator current azathioprine therapy (V58.69 , Z79.899) Status: [...] ALANA HAM M.D. Start : 29-Dec-2018 Active Baclofen 20 MG [...] CASTILLO BUENROSTRO M.D. Start : 09-Mar-2019 Active Fluticasone-Salmeterol 500-50 MCG/DOSE Inhalation Aerosol Powder Breath Activated INHALE ONE PUFF BY MOUTH TWICE A DAY Quantity: 1 Refills: 3 JOSEPHINE BUENROSTRO M.D.AH Start : 08-Apr-2019 Active 60 Each Pack [...] Procedure Dates Details MR Jung wo contrast [id number] Date: 19-Oct-2019 History of Gallbladder surgery Completed [...] Encounter Diagnosis: Problem not documented Appointment; ROXANN SOZUA M.D. On: 13-Jan-2019 8:00 Encounter Diagnosis: Problem [...]
--- OUTSIDE RECORDS SUMMARY | 2020-01-27 20:36 | XMS REPORT | Summary of Care ---
:1980 Author Organization [facility] Address [address] [place] [address] Care Team Providers Name Role Phone JITENDRA Garcia Unavailable Unavailable HARLEY Garcia Unavailable Unavailable CHITRA Garcia Unavailable Unavailable STU Garcia Unavailable Unavailable JAZLYN CAR Unavailable Unavailable DOTTY Garcia Unavailable Unavailable VIGNESH CAR Unavailable Unavailable KAY YEEN Unavailable Unavailable HUNG VALLE Unavailable Unavailable JAZLYN STEWARD Unavailable Unavailable JAZLYN SANDOVAL Unavailable Unavailable HARLEY SANDOVAL [place] Unavailable Unavailable Chitra SANDOVAL Unavailable Unavailable NEERAJ SANDOVAL Unavailable Unavailable Elizabet SANDOVAL Unavailable Boogie MIDDLETON MD Unavailable Unavailable LANDY SANDOVAL Unavailable Unavailable Corwin SANDOVAL Unavailable Unavailable JAZLYN SANDOVAL [place] Unavailable Unavailable JITENDRA SANDOVAL Unavailable Unavailable Rai [...] therapy (V58.83, Z51.81) Status: Active 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 Start : 09-Mar-2019 Active Fluticasone-Salmeterol [...] Procedure Dates Details MR Jung wo contrast [id number] Date: 19-Oct-2019 History of Gallbladder surgery Completed [...]
--- OUTSIDE RECORDS SUMMARY | 2020-01-27 20:37 | XMS REPORT | Summary of Care ---
:1980 Author Organization [facility] Address [address] [place] [address] Care Team Providers Name Role Phone JITENDRA Garcia Unavailable Unavailable HARLEY Garcia Unavailable Unavailable CHITRA Garcia Unavailable Unavailable STU Garcia Unavailable Unavailable JAZLYN CAR Unavailable Unavailable DOTTY Garcia Unavailable Unavailable VIGNESH CAR Unavailable Unavailable KAY YEEN Unavailable Unavailable HUNG VALLE Unavailable Unavailable JAZLYN STEWARD Unavailable Unavailable JAZLYN SANDOVAL Unavailable Unavailable HARLEY SANDOVAL [place] Unavailable Unavailable Chitra SANDOVAL Unavailable Unavailable NEERAJ SANDOVAL Unavailable Unavailable Elizabet SANDOVAL Unavailable Unavailable KANE SANDOVAL Unavailable Unavailable LANDY SANDOVAL Unavailable Unavailable Corwin SANDOVAL Unavailable Unavailable JAZLYN SANDOVAL [place] Unavailable Unavailable JITENDRA SANDOVAL Unavailable Unavailable Rai SANDOVAL Unavailable Unavailable DOTTY SANDOVAL Unavailable Unavailable STU SANDOVAL Unavailable Unavailable Unavailable Unavailable Unavailable Functional Status Name Dates Details Functional status health issues are not documented Status: Name Dates Details Cognitive status health issues are not documented Status: Problems Name Dates Details Vaginal candidiasis (112.1, B37.3) Statu s: Active Abnormal urinalysis (791.9, R82.90) Stat us: Active Encounter for monitoring golimumab therapy (V58.83, Z51.81) Status: Active Encounter for snf current azathioprine therapy (V58.69 , Z79.899) Status: [...] Spleen enlargement (789.2, R16.1) Status : Active Endometriosis (617.9, N80.9) Status: Act luzmaria Injury, foot, left, initial encounter (959.7, S99.922A) Status: Active Myofascial pain syndrome (729.1, M79.18) [...] A DAY NEEDED Quantity: 60 Refills: 2 DOTTY ELTON GarciaGARFIELDDerick Start : 29-Dec-2018 Active traZODone HCl - 100 MG Oral Tablet TAKE ONE TABLET BY MOUTH AT BEDTIME Quantity: 90 Refills: 1 DOTTY Radha HECTOR Start : 29-Dec-2018 Active Baclofen 20 MG Oral Tablet TAKE 1 TABLET 3 TIMES DAILY NEEDED. Quantity: 90 Refills: 3 ALANA HAM M.D. Start : 29-Dec-2018 Active Trintellix 10 MG Oral Tablet Take one tablet daily Quantity: 90 Refills: 1 STORM HECTOR Garcia Start : 13-Jan-2019 Active Omeprazole 40 MG Oral Capsule Delayed Release TAKE 1 CAPSULE DAILY Quantity: 30 Refills: 6 KOBE MEDELLIN APRN Start : 23-Jan-2019 Active Diclofenac Sodium 1 % Transdermal Gel APPLY 2 GM OF GEL TO AFFECTED AREA 4 TIMES DAILY. DO NOT APPLY MORE THAN 8 GM DAILY TO ANY ONE AFFECTED AREA. Quantity: 1 Refills: 1 JOSEPHINE SOUZA M.D.SHAYNEDilan Start : 29-Jan-2019 Active 100 GM Tube Lidocaine 5 % External Patch APPLY 1 PATCH TO THE AFFECTED AREA AND LEAVE IN PLACE FOR 12 HOURS, THEN REMOVE AND LEAVE OFF FOR 12HOURS. Quantity: 1 Refills: 0 HARLEY Garcia LUIS ANTONIODilan Start : 02-Feb-2019 Active 30 Patch Box [...] ISAI VILLANUEVA APRN Start : 19-May-2019 Active Fluticasone-Salmeterol 500-50 MCG/DOSE Inhalation Aerosol Powder Breath Activated INHALE ONE PUFF BY MOUTH TWICE A DAY Quantity: 1 Refills: 3 CASTILLO BUENROSTRO M.D. Start : 08-Apr-2019 Active 60 Each Pack CPAP Continuous Positive Airway Pressure Please provide patient with all necessary CPAP supplies including mask (please fit), tubing, filters, etc. Good for ONE YEAR Quantity: 1 Refills: 0 CASTILLO BUENROSTRO M.D. Start : 09-Mar-2019 Active 07/13 1-20 MG-MCG Oral Tablet TAKE [...] Procedure Dates Details MR Jung wo contrast [id number] Date: 19-Oct-2019 History of Gallbladder surgery Completed [...] Planned Encounters Appointment; HECTOR STORM M.D. On: 27-Jan-2020 15:30 [...] 10 :45 Encounter Diagnosis: Problem not documented Appointment; BRANDT BILL M.D. On: 27-Nov-2019 8:0 0 Encounter Diagnosis: Problem not documented
--- OUTSIDE RECORDS SUMMARY | 2020-01-27 20:37 | XMS REPORT | Summary of Care ---
:1980 Author Name Heath Can Address Unavailable Unavailable , Care Team Providers Name Role Phone JITENDRA Garcia Unavailable Unavailable HARLEY Garcia Unavailable Unavailable CHITRA Garcia Unavailable Unavailable STU Garcia Unavailable Unavailable JAZLYN CAR Unavailable Unavailable DOTTY Garcia Unavailable Unavailable VIGNESH CAR Unavailable Unavailable KAY PRIMER WATERPROOFING MACHINE ADJUSTER Unavailable Unavailable Heath Can Unavailable Unavailable PERSAUD DO Unavailable Unavailable JAZLYN CHECK OUT CLERK Unavailable Unavailable JAZLYN SANDOVAL Unavailable Unavailable HARLEY SANDOVAL [place] Unavailable Unavailable Chitra SANDOVAL Unavailable Unavailable NEERAJ SANDOVAL Unavailable Unavailable Elizabet SANDOVAL Unavailable Boogie MIDDLETON MD Unavailable Unavailable LANDY SANDOVAL Unavailable Unavailable Corwin SANDOVAL Unavailable Unavailable JAZLYN SANDOVAL [place] Unavailable Unavailable JITENDRA SANDOVAL Unavailable Unavailable Rai [...] therapy (V58.83, Z51.81) Status: Active Encounter for long-term current azathioprine therapy (V58.69 , Z79.899) Status: [...] DAILY. Quantity: 3 Refills: 3 COREY HOBOSN APRN Start : 14-Jan-2019 Active 28 Tablet [...] for ONE YEAR Quantity: 1 Refills: 0 JOSEPHINE BUENROSTRO M.D.AH Start : 09-Mar-2019 Active Fluticasone-Salmeterol 500-50 MCG/DOSE [...] Procedure Dates Details MR Jung wo contrast [id number] Date: 19-Oct-2019 History of Gallbladder surgery Completed [...] Planned Encounters Appointment; BRANDT BILL M.D. On: 15-Dec-2019 11 :10 Appointment; HECTOR STORM M.D. On: 27-Jan-2020 15:30 [...]
--- OUTSIDE RECORDS SUMMARY | 2020-01-27 20:38 | XMS REPORT | Summary of Care ---
:1980 Author Name Heath Can Address Unavailable Unavailable , Care Team Providers Name Role Phone JITENDRA Garcia Unavailable Unavailable HARLEY Garcia Unavailable Unavailable CHITRA Garcia Unavailable Unavailable STU Garcia Unavailable Unavailable JAZLYN CAR Unavailable Unavailable DOTTY Garcia Unavailable Unavailable VIGNESH CAR Unavailable Unavailable KAY FOOD SERVICE KITCHEN SUPERVISOR Unavailable Unavailable Heath Can Unavailable Unavailable PERSAUD DO Unavailable Unavailable JAZLYN HAZMAT CDL A DRIVER Unavailable Unavailable JAZLYN SANDOVAL Unavailable Unavailable HARLEY [...] Start : 24-Aug-2019 Active 21 Tablet Pack Trezix 320.5-30-16 MG Oral Capsule TAKE 2 CAPSULES BY MOUTH EVERY 4 TO 6 HOURS NEEDED FOR PAIN Quantity: 16 Refills: 0 ISAI VILLANUEVA APRN Start : 09-Dec-2019 End : 14-Dec-2019 Active Allergies and Adverse Reactions Name Dates [...] Status: Resolved Procedures Procedure Dates Details MR Ankle wo contrast [id number] Date: 19-Oct-2019 History of Gallbladder surgery Completed [...] M.D. On: 27-Jan-2020 15:30 Interventions Provided Medication ChangesTrezix 320.5-30-16 MG Oral [...] 10:00 Encounter Diagnosis: Problem not documented Appointment; OCREY HOBSON APRN On: 14-Jan-2019 13:00 Encounter Diagnosis: [...]
--- OUTSIDE RECORDS SUMMARY | 2020-01-27 20:38 | XMS REPORT | Summary of Care ---
:1980 Author Name KAY JOCELINE Address Unavailable Unavailable , Care Team Providers Name Role Phone JITENDRA Garcia Unavailable Unavailable HARLEY Garcia Unavailable Unavailable CHITRA Garcia Unavailable Unavailable STU Garcia Unavailable Unavailable JAZLYN CAR Unavailable Unavailable DOTTY Garcia Unavailable Unavailable VIGNESH CAR Unavailable Unavailable KAY YEEN Unavailable Unavailable Heath Can Unavailable Unavailable HUNG VALLE Unavailable Unavailable JAZLYN STEWARD Unavailable Unavailable JAZLYN SANDOVAL Unavailable Unavailable HARLEY SANDOVAL [place] Unavailable Unavailable Chitra SANDOVAL Unavailable Unavailable NEERAJ SANDOVAL Unavailable Unavailable Elizabet SANDOVAL Unavailable Booige MIDDLETON MD Unavailable Unavailable LANDY SANDOVAL Unavailable [...] therapy (V58.83, Z51.81) Status: Active Encounter for intermediate current azathioprine therapy (V58.69 , Z79.899) Status: [...] Rheumatoid arthritis (714.0, M06.9) Stat us: Active RIELY (obstructive sleep apnea) (327.23, G47.33) Status: Active [...] Procedure Dates Details MR Jung wo contrast [id number] Date: 19-Oct-2019 History of Gallbladder surgery Completed [...]
--- OUTSIDE RECORDS SUMMARY | 2020-01-27 20:39 | XMS REPORT | Summary of Care ---
:1980 Author Name LANDY Garcia Address [facility] Unavailable , Care Team Providers Name Role Phone JITENDRA Garcia Unavailable Unavailable HARLEY Garcia Unavailable Unavailable LANDY Garcia Unavailable Unavailable CHITRA Garcia Unavailable Unavailable STU Gracia Unavailable Unavailable JAZLYN CAR Unavailable Unavailable DOTTY [...] therapy (V58.83, Z51.81) Status: Active Encounter for [facility] current azathioprine therapy (V58.69 , Z79.899) Status: [...] and foot (727 .06, M65.871) Status: Active Sprain of calcaneofibular ligament of left ankle, sequela (9 05.7, S93.412S) Status: Active Medications Name Dates Details Propranolol [...] TWICE A DAY Quantity: 1 Refills: 3 CASTILOL BUENROSTRO M.D. Start : 08-Apr-2019 Active 60 [...] Twice daily TDD:1.6gm Quantity: 120 Refills: 5 OBONYKOBE JONES APRN Start : 19-Aug-2019 Active methylPREDNISolone 4 [...] Procedures Procedure Dates Details Ankle wo contrast [id number] Date: 19-Oct-2019 History of Gallbladder surgery Completed [...] Planned Encounters Appointment; BRANDT BILL M.D. On: 19-Jan-2020 10 :50 Appointment; HECTOR STORM M.D. On: 27-Jan-2020 15:30 [...] 8:0 0 Encounter Diagnosis: Problem not documented Appointment; BRANDT BILL M.D. On: 15-Dec-2019 11 :10 Encounter Diagnosis: Problem not documented
--- OUTSIDE RECORDS SUMMARY | 2020-01-27 20:39 | XMS REPORT | Summary of Care ---
:1980 Author Organization [facility] - [facility] Address [address] [place] [address] Care Team Providers Name Role Phone Oneyda Primary Care Provider Reason for Referral MRI/CAT Scan (STAT) Status Reason Specialty Diagnoses / Referred By Referred To Procedures Contact Contact New Request Diagnostic Diagnoses Pain of left lower extremity Shortness of breath Fever and chills Enedina Schaffer, Radiology Procedures CT CHEST PULMONARY ANGIOGRAM [employer] [employer] [address] [place] [address] (DAVEY) Status Reason Specialty Diagnoses / Referred By Referred To Procedures Contact Contact New Request Vascular Surgery Procedures Enedina Schaffer, BILATERAL VENOUS [employer] [employer] DUPLEX [address] [place] [address] Radiology Services (STAT) Status Reason Specialty Diagnoses / Referred By Referred To Procedures Contact Contact New Request Diagnostic Diagnoses Pain of left lower extremity Shortness of breath Enedina Schaffer, Radiology Procedures Chest 2 Views [employer] [address] [place] [address] Reason for Visit Reason Comments Leg Pain left Shortness of Breath Fatigue Auth/Cert Status Reason Specialty Diagnoses / Referred By Referred To Procedures Contact Contact Emergency Medicine [facility] ergency Dept [address] [place] [address] Fax: Encounter Details Date Type Department Care Team Description 12/21/2019 - Emergency ADC-Emergency Enedina Schaffer, Shortness of breath (Primary Dx); 12/22/2019 Department [facility] Pain of left lower extremity; [address] [place] [address] Blvd Fever and chills; Drive [place], [place] [phone] Allergies Active Allergy Reactions Severity Noted Date Comments Adhesive Itching 12/15/2012 Skin turns red Celecoxib Swelling 08/20/2019 Ciprofloxacin Other - See comments 07/03/2019 Tachyc ardia Cephalexin Itching 12/15/2012 Levofloxacin Palpitations 12/15/2012 Sulfa (Sulfonamide Other - See comments 07/03/2019 T ongue swelling Antibiotics) documented as of this encounter (statuses as of 12/22/2019) Medications Medication Sig Dispensed Refills Start Date End Date Status BUPROPION HCL Take 450 mg by 0 A ctive (WELLBUTRIN mouth daily. ORAL)Indications: Depression traZODONE (DESYREL) 100 Take 100 mg by 0 Active mg tablet mouth at bedtime. LOESTRIN FE Take 1 Tab by 3 Package 0 09/23/2014 Act luzmaria (MICROGESTIN FE 1.5/30, mouth daily. 28,) 1.5 mg-30 mcg (21)/75 mg (7) tabletIndications: General counseling for prescription of oral contraceptives acetaminophen-codeine Take 1 Tab by 20 Tab 0 02/09/2015 Active (TYLENOL-CODEINE #3) mouth every 8 300-30 mg tablet (eight) hours as needed for Pain (scale 4-6). ondansetron 4 mg Take 1 tablet by 20 tablet 0 07/03/2019 Active disintegrating mouth every 12 tabletIndications: (twelve) hours as Acute cystitis with needed for Nausea hematuria and Vomiting (N/V). traMADol 50 mg Take 1 tablet by 12 tablet 0 08/20/2019 Active tabletIndications: mouth every 6 Strain of flexor muscle (six) hours as of right hip, initial needed for Pain encounter (scale 4-6). documented as of this encounter (statuses as of 12/22/2019) Active Problems Problem Noted Date Morbid obesity 09/05/2019 Rheumatoid arthritis 09/01/2018 Insomnia 09/01/2018 Enteropathic arthritis 04/22/2017 Neuropathy 04/22/2017 Asthma dependent on inhaled steroids 04/01/2017 RILEY (obstructive sleep apnea) 04/01/2017 Allergic rhinitis due to pollen 10/01/2016 Chronic obstructive asthma with acute exacerbation 03/2017 Cough 10/01/2016 Inflammatory polyarthritis 08/30/2016 Fibromyalgia 08/30/2016 Encounter for monitoring azathioprine therapy 06/07/20 16 Chronic midline low back pain without sciatica 016 Myalgia 05/01/2016 Vitamin D insufficiency 05/01/2016 Abdominal pain 04/28/2016 History of endometriosis 04/28/2016 IBS (irritable bowel syndrome) 04/28/2016 Ulcerative colitis with complication 04/28/2016 Weakness 04/28/2016 Gastroparesis 04/17/2016 Cervical radiculopathy 03/29/2016 Tendonitis of elbow, right 03/29/2016 Gastroesophageal reflux disease without esophagitis Intractable vomiting with nausea 01/22/2016 Sprain of right knee/leg 01/03/2016 Encounter for routine gynecological examination 2012 Overview: ICD10 Diagnosis Term Quality Lab Technician Utility Attention deficit disorder 12/15/2012 Overview: ICD10 Diagnosis Term Quality Lab Technician Utility Anxiety 12/15/2012 Depression 12/15/2012 Asthma 12/15/2012 Overview: ICD10 Diagnosis Term Quality Lab Technician Utility Genital warts 12/15/2012 Endometriosis 12/15/2012 PCOS (polycystic ovarian syndrome) 12/15/2012 Acne 12/15/2012 Obesity 12/15/2012 Overview: ICD10 Diagnosis Term Quality Lab Technician Utility Sprain of metacarpophalangeal joint of thumb 3 Blepharitis of both eyes 04/04/2012 High myopia, both eyes 02/29/2012 Keratitis secondary to contact lens 02/29/2012 Routine medical exam 06/13/2011 Overview: Last Assessment & Plan: Stable exam except as above. Abnormal weight gain 05/14/2011 Overview: Last Assessment & Plan: Labs reviewed and appears normal. Revie wed with her. I have counseled the patient at length to modify lifestyle. Hirsutism 05/14/2011 Irregular menstrual cycle 05/14/2011 Other malaise and fatigue 05/14/2011 Frequent UTI 06/01/2010 Headache(784.0) 06/01/2010 Overview: Last Assessment & Plan: Stable, suspect migraine type Sciatic nerve pain documented as of this encounter (statuses as of 12/22/2019) Immunizations Name Administration Dates Next Due Td 10/16/2011 documented as of this encounter Social History Tobacco Use Types Packs/Day Years Used Date Never Smoker Smokeless Tobacco: Never Used Alcohol Use Drinks/Week oz/Week Comments No Sex Assigned at Date Recorded Not on file Job Start Date Occupation Industry Not on file Not on file Not on file Travel History Travel Start Travel End No recent travel history available. COVID-19 Exposure Response Date Recorded In the last month, have you been in contact with No / Unsure 12/21/2019 9:50 PM CDT someone who was confirmed or suspected to have Coronavirus / COVID-19? documented as of this encounter Last Filed Vital Signs Vital Sign Reading Time Taken Comments Blood Pressure 150/87 12/22/2019 2:15 AM CDT Pulse 86 12/22/2019 2:15 AM CDT Temperature 38.1 C (100.5 F) 12/21/2019 9:58 PM CDT Respiratory Rate 18 12/22/2019 2:15 AM CDT Oxygen Saturation 97% 12/22/2019 2:15 AM CDT Inhaled Oxygen Concentration - - Weight 149.7 kg (330 lb) 12/21/2019 9:58 PM CDT Height - - Body Mass Index 62.35 07/03/2019 12:57 PM MECHANIC documented in this encounter Discharge Instructions Enedina Morales FNP - 12/22/2019Please return to the ER if you have any worsening of symptoms, trouble breathing, fever that wont godown with Tylenol or Motrin, severe vomiting, or any other symptom you feel is abnormal. Please alternate Tylenol and Motrin for fever and aches. Please follow up with your primary care doctor as soon as possible. Thank you. AttachmentsThe following attachments cannot be sent through Care Everywhere. Shortness of Breath (Dyspnea) (Afghan)Maximizing Your Energy, Shortness of Breath (Afghan)Febrile Illness, Uncertain Cause (Adult) (Afghan)documented in this encounter Plan of Treatment Date Type Specialty Care Team Description 01/11/2020 Office Visit Dermatology Darrel Egan MD [address] [place], [place] [phone] Name Type Priority Associated Diagnoses Date/Ti me CT CHEST PULMONARY IMAGING STAT Pain of left lower 12:37 AM ANGIOGRAM extremity CDT [facility]ness of [facility] Fever and chills Name Type Priority Associated Diagnoses Order S chedule BLOOD CULTURE SCREEN LAB Routine Pain of left lower O NCE for 1 Occurrences extremity starting 12/22/2019 until [facility] 12/22/2019 Fever and chills BLOOD CULTURE SCREEN LAB Routine Pain of left lower O NCE for 1 Occurrences extremity starting 12/22/2019 until [facility] 12/22/2019 Fever and chills Health Maintenance Due Date Last Done Comments PNEUMOCOCCAL 0-64 YEARS COMBINED SERIES (1 1986 of 1 - PPSV23) DTaP,Tdap,and Td Vaccines (1 - Tdap) 1991 10/16/2011 Depression Screening 1992 PAP SMEAR 12/17/2015 12/16/2012, 04/25/2009 INFLUENZA VACCINE (Season Ended) 2020 04/17/2016 documented as of this encounter Procedures Procedure Name Priority Date/Time Associated Comments Diagnosis BILATERAL VENOUS DAVEY 12/22/2019 12:01 DUPLEX LOWER AM CDT EXTREMITY BY VASCULAR LAB XR CHEST 2 VW STAT 12/21/2019 11:26 Pain of left lower Resu lts for this PM CDT extremity procedure are in Shortness of breath the resu lts section. COVID-19 (ID NOW STAT 12/21/2019 10:39 Pain of left lower R esults for this RAPID TESTING) PM CDT extremity procedure are in Shortness of [place] ath the results Fever and chills section. CBC WITH DIFFERENTIAL STAT 12/21/2019 10:33 Pain of left lo wer Results for this PM CDT extremity procedure are in Shortness of breath the resu lts section. N-TERMINAL PRO-BNP STAT 12/21/2019 10:33 Pain of left lower Results for this PM CDT extremity procedure are in Shortness of breath the resu lts section. D-DIMER STAT 12/21/2019 10:33 Pain of left lower Resul ts for this PM CDT extremity procedure are in Shortness of breath the resu lts section. CBC WITH DIFFERENTIAL Routine 12/21/2019 10:33 Pain of left lo wer Results for this PM CDT extremity procedure are in Shortness of breath the resu lts section. BASIC METABOLIC PANEL STAT 12/21/2019 10:33 Pain of left lo wer Results for this (NA, K, CL, CO2, PM CDT extremity procedure are in GLUCOSE, BUN, Shortness of breath the res ults CREATININE, CA) section. HEPATIC FUNCTION STAT 12/21/2019 10:33 Pain of left lower R esults for this PANEL (02974) PM CDT extremity procedure are in (ALB,T.PRO,BILI Shortness of breath the r esults T,BU/BC,ALT,AST,ALK section. PHOS) TROPONIN I STAT 12/21/2019 10:33 Pain of left lower Resul ts for this PM CDT extremity procedure are in Shortness of breath the resu lts section. URINALYSIS STAT 12/21/2019 10:22 Pain of left lower Resul ts for this PM CDT extremity procedure are in Shortness of breath the resu lts section. POCT TEST DAVEY 12/21/2019 10:21 Pain of left lowe r Results for this PM CDT extremity procedure are in Shortness of breath the resu lts section. NOTICE OF PRIVACY Routine 12/21/2019 9:50 PRACTICES PM CDT CONSENT/REFUSAL FOR Routine 12/21/2019 9:50 DIAGNOSIS AND PM CDT TREATMENT documented in this encounter Results Chest 2 Views (12/21/2019 11:26 PM CDT) Specimen Impressions Performed At PACS/VR/DOSE No acute intrathoracic abnormality. Preliminary Report Dictated by Resident: Casa Wilson MD., have reviewed this study and agree with the above report. Narrative Performed At PROCEDURE: XR CHEST 2 VW PACS/VR/DOSE CLINICAL INDICATION: SOB COMPARISON: None FINDINGS: The lungs are clear. No pleural effusion or pneumothor ax is seen. The heart is normal in size. No acute bony abnormality. Procedure Note [facility], Radiant Results Inft User - 2019 12:44 AM CDT PROCEDURE: XR CHEST 2 VW CLINICAL INDICATION: SOB COMPARISON: None FINDINGS: The lungs are clear. No pleural effusion or pneumothorax is seen. The heart is normal in size. No acute bony abnormality. IMPRESSION No acute intrathoracic abnormality. Preliminary Report Dictated by Resident: Casa Wilson MD., have reviewed th is study and agree with the above report. Performing Organization Address City/State/[facility] Phone Number PACS/VR/DOSE COVID-19 (ID NOW RAPID TESTING) (12/21/2019 10:39 PM CDT) SARS-CoV-2 Rapid ID Not Detected Not Detected [facility] Specimen Swab - NASOPHARYNGEAL SWAB Narrative Performed At ID NOW COVID-19 Assay is an isothermal nucleic [facility] acid amplification test intended for the qualitative detection of nucleic acid from SARS-CoV-2 viral RNA in nasopharyngeal (INVOICE CONTROL CLERK) specimens. It is used under Emergency Use Authorization (EUA) by FDA. The limit of detection (LOD) of the assay is 125 Genome Equivalents/mL. A positive result is indicative of the presence of SARS-CoV-2 RNA. Clinical correlation with patient history and other diagnostic information is necessary to determine patient infection status. A negative (Not Detected) result does not preclude SARS-CoV-2 infection. In patients with clinical symptoms and other tests that are consistent with SARS-CoV-2 infection, negative results should be treated as presumptive negative and a new specimen should be tested with alternative PCR molecular test. Invalid: Please collect a new specimen for repeat patient testing if clinically indicated. Performing Organization Address [facility]/Zipcode Phone Number [facility] CLIA: [id number], [address] [place] [address] CBC WITH DIFFERENTIAL (12/21/2019 10:33 PM CDT) Pathologist Sig nature WBC 10.85 4.30 - 11.10 [facility] 10*3/L [facility] RBC 4.90 3.93 - 5.25 [facility] 10*6/L [facility] HGB 14.5 11.6 - 15.0 [facility] g/dL [facility] HCT 43.6 35.7 - 45.2 % [facility] MCV 89.0 80.6 - 95.5 fL [facility] MCH 29.6 25.9 - 32.8 pg [facility] MCHC 33.3 31.6 - 35.1 [facility] g/dL [facility] RDW-SD 42.8 39.0 - 49.9 fL [facility] RDW-CV 13.1 12.0 - 15.5 % [facility] PLT 349 166 - 358 [facility] 10*3/L HOSPITAL LABORATORY MPV 9.4 (L) 9.5 - 12.9 fL [facility] NRBC/100 WBC 0.0 0.0 - 10.0 /100 [facility] WBCs [facility] NRBC x10^3 <0.01 10*3/L [facility] GRAN MAT (NEUT) % 59.8 % [facility] IMM GRAN % 0.50 % [facility] LYMPH % 30.8 % [facility] MONO % 7.9 % [facility] EOS % 0.4 % [facility] BASO % 0.6 % [facility] GRAN MAT x10^3(ANC) 6.50 1.88 - 7.09 [facility] 10*3/uL [facility] IMM GRAN x10^3 0.05 0.00 - 0.06 [facility] 10*3/uL [facility] LYMPH x10^3 3.34 (H) 1.32 - 3.29 [facility] 10*3/uL [facility] MONO x10^3 0.86 0.33 - 0.92 [facility] 10*3/uL [facility] EOS x10^3 0.04 0.03 - 0.39 [facility] 10*3/uL [facility] BASO x10^3 0.06 0.01 - 0.07 [facility] 103/uL [facility] Specimen Blood - VENOUS Performing Organization Address City/State/Zipcode Phone Number [facility] CLIA: [id number], [address] [place], [place] [address] D-DIMER (12/21/2019 10:33 PM CDT) Pathologist Sig nature D-DIMER 1.25 (H) <0.41 g/mL (FEU) [facility] Specimen Blood - VENOUS Narrative Performed At This test may be used in conjunction with a [facility] clinical pretest probability (PTP) assessment model to exclude venous thromboembolism (VTE) in patients suspected of deep venous thrombosis (DVT) and pulmonary embolism (PE) A D-Dimer value less than 0.50 g/ml (FEU) has a negative predicative value of 96 to 100% (95% CI)and 97 to 100% (95% CI) as an aid in the diagnosis of deep vein thrombosis (DVT) and pulmonary embolism when there is low or moderate pretest probability of PE or DVT. D-Dimer values are expressed in initial fibrinogen equivalent units (FEU)" The assay results should be used with other information, including the clinical context, in forming a diagnosis. Performing Organization Address [facility] Facilitycomi Phone Number [facility] CLIA: [id number], [address] [place] [address] N-TERMINAL PRO-BNP (12/21/2019 10:33 PM CDT) [facility] nature NT-proBNP 201 (H) <=125 pg/mL [facility] Specimen Blood - VENOUS Narrative Performed At [facility] has been reported to cause a negative [facility] bias, interpret results relative to patient's use of biotin. Performing Organization Address [facility] Phone Number [facility] CLIA: [id number], [address] [place] [address] Troponin I (12/21/2019 10:33 PM CDT) Pathologist Sig nature TROPONIN I <0.012 <=0.034 ng/mL [facility] Specimen Blood - VENOUS Narrative Performed At Equal or Less than 0.034 ng/ml---Normal [facility] Note: Cardiac troponin begins to rise 3-4 hours after the onset of ischemia. Repeat in 4-6 hours if the sample was drawn within 3-4 hours of the onset of the symptom and found normal. Between 0.035 and 0.120 ng/mL--- Borderline. Questionable myocardial injury or necros is Note: Serial measurement may be necessary to confirm or exclude the diagnosis of myocardial injury or necrosis; Clinical correlation (symptoms, EKGs, imaging studies, and others) required; Repeat in 4-6 hours if clinically indicated. Equal or Higher than 0.121 ng/mL---Abnormal. Myocardial Injury or Necrosis Likely Biotin has been reported to cause a negative bias, interpret results relative to patient's use of biotin. Performing Organization Address [facility] Phone Number [facility] CLIA: [id number], [address] [place], [place] [address] Hepatic Function Panel (ALB, T.PRO, BILI T, BU/BC, ALT, AST, ALK PHOS) (12/21/2019 10:33 PM CDT) TOTAL BILI 0.6 0.1 - 1.1 mg/dL [facility] BILI UNCON 0.5 0.1 - 1.1 mg/dL [facility] BILI CONJ 0.0 0.0 - 0.3 mg/dL [facility] T PROTEIN 8.1 6.3 - 8.2 g/dL [facility] ALBUMIN 4.4 3.5 - 5.0 g/dL [facility] ALK PHOS 80Comment: Slight 34 - 122 U/L [facility] ALTv 25 5 - 35 U/L [facility] AST(SGOT) 38Comment: Slight 13 - 40 U/L [facility] Specimen Blood - VENOUS Performing Organization Address City/State/Zipcode Phone Number [facility] CLIA: [id number], [address] [place], [place] [address] Basic Metabolic Panel (NA, K, CL, CO2, GLUCOSE, BUN, CREATININE, CA) (12/21/2019 10:33 PM CDT) NA 138 135 - 145 [facility] mmol/L [facility] K 5.3 (H)Comment: 3.5 - 5.0 [facility] Slight hemolysis mmol/L [facility] CL 106 98 - 108 [facility] mmol/L [facility] CO2 TOTAL 23 23 - 31 [facility] mmol/L [facility] AGAP 9 2 - 16 [facility] BUN 23Comment: Slight 7 - 23 mg/dL [facility] GLUCOSE 100 70 - 110 [facility] mg/dL [facility] CREATININE 0.95 0.50 - 1.04 [facility] mg/dL [facility] CALCIUM 9.2 8.6 - 10.6 [facility] mg/dL [facility] eGFR Calculation 65.5 mL/min/1.73m2 [facility] ([facility] LABORATORY eGFR Calculation 79.4 mL/min/1.73m2 [facility] Specimen Blood - VENOUS Narrative Performed At Association of Glomerular Filtration Rate (GFR) [facility] and Staging of Kidney Disease* + + +- + | GFR (mL/min/1.73 m2) | With Kidney Damage | Without Kidney Damage + + +- + | >90 | Stage one | Normal + + +- + | 60-89 | Stage two | Decreased GFR + + +- + | 30-59 | Stage three | Stage three + + +- + | 15-29 | Stage four | Stage four + + +- + | <15 (or dialysis) | Stage five | Stage five + + +- + *Each stage assumes the associated GFR level has been in effect for at least three months. Stages 1 to 5, with or without kidney disease, indicate chronic kidney disease. Notes: Determination of stages one and two (with eGFR >59mL/min/1.73 m2) requires estimation of kidney damage for at least three months as defined by structural or functional abnormalities of the kidney, manifested by either: Pathological abnormalities or Markers of kidney damage (including abnormalities in the composition of the blood or urine or abnormalities in imaging tests). Performing Organization Address City/State/Zipcode Phone Number [facility] CLIA: [id number], [address] [place], [place] [address] Urinalysis (12/21/2019 10:22 PM CDT) Pathologist Sig nature APPEARANCE Hazy (A) Clear [facility] COLOR Yellow Yellow [facility] PH 5.0 4.8 - 8.0 [facility] SP GRAVITY 1.026 1.003 - 1.030 [facility] GLU U QUAL Normal Normal [facility] BLOOD 2+ (A) Negative [facility] KETONES Negative Negative [facility] PROTEIN Negative Negative [facility] UROBILIN Normal Normal [facility] BILIRUBIN Negative Negative [facility] NITRITE Negative Negative [facility] LEUK SOLOMON Negative Negative [facility] RBC/HPF 22 (H) 0 - 3 HPF [facility] WBC/HPF 2 0 - 5 HPF [facility] BACTERIA Few (A) Negative [facility] MUCOUS Slight (A) Negative LPF [facility] SQ EPITH 2 HPF [facility] Specimen Urine - URINE, CLEAN CATCH Performing Organization Address City/State/Zipcode Phone Number [facility] CLIA: [id number], [address] [place], [place] [address] POCT Test (12/21/2019 10:21 PM CDT) Pathologist Sig nature POCT PREG negative On board controls acceptable yes with C Line POCT PREG LOT # [id number] POCT PREG TEST DATE 01/21/2021 Specimen Urine - URINE, CLEAN CATCH documented in this encounter Visit Diagnoses Diagnosis Shortness of breath - Primary Pain of left lower extremity Fever and chills Fever, unspecified Morbid obesity documented in this encounter Administered Medications Medication Order MAR Action Action Date Dose Rate Site aspirin tablet 325 mg Given 12/21/2019 10:34 PM CDT 325 mg 325 mg, Oral, ONCE, 1 dose, 12/21/19 at 2200, STAT HYDROcodone-acetaminophen (NORCO 5) 5-325 Given 2019 12:11 AM CDT 1 tablet mg tablet 1 tablet 1 tablet, Oral, ONCE, 1 dose, e 12/22/19 at 0115, DAVEY iohexol (OMNIPAQUE 350 BULK-150 mL) Given 12/22/2019 12:45 AM CD T 120 mL injection 120 mL 120 mL, Intravenous, ONCE, 1 dose, 12/22/19 at 0045, Routine documented in this encounter Insurance Payer Benefit Plan / Subscriber ID Effective Dates Phone Addre ss Type Group [place] xxxxxxxxx 2019-Present Medicaid HEALTH PLAN - HEALTH MANAGED MEDICAID Guarantor Name Account Type Relation to Date of Phone Billing Patient Address Emilia Lora Personal/Family Self 1980 [address] (Home) [address] [place] [address] documented as of this encounter
--- OUTSIDE RECORDS SUMMARY | 2020-01-27 20:40 | XMS REPORT | Summary of Care ---
:1980 Author Name Heath Can Address Unavailable Unavailable , Care Team Providers Name Role Phone JITENDRA Garcia Unavailable Unavailable HARLEY Garcia Unavailable Unavailable CHITRA Garcia Unavailable Unavailable STU Garcia Unavailable Unavailable JAZLYN CAR Unavailable Unavailable DOTTY Garcia Unavailable Unavailable VIGNESH CAR Unavailable Unavailable KAY BLADDER TRIMMER Unavailable Unavailable Heath Can Unavailable Unavailable PERSAUD DO Unavailable Unavailable JAZLYN PLATE FITTER Unavailable Unavailable JAZLYN SANDOVAL Unavailable Unavailable HARLEY [...] therapy (V58.83, Z51.81) Status: Active Encounter for remote computer terminal operator current azathioprine therapy (V58.69 , Z79.899) [...] ankle, sequela (9 05.7, S93.412S) Status: Active Left leg swelling (729.81, M79.89) Statu s: Active Medications Name Dates Details Propranolol HCl [...] Z87.11) Status: Resolved Procedures Procedure Dates Details US Extremity lower venous Doppler Unilat 83963 Date: 020 History of Gallbladder surgery Completed History of [...] STORM M.D. On: 27-Jan-2020 15:30 Interventions Provided Labs/Procedures/ImagingUS Extremity lower venous Doppler Unilat 90255; To Be Done: 23 Dec 2019 Instructions Name Dates Details Instructions not documented [...]
--- OUTSIDE RECORDS SUMMARY | 2020-01-27 20:40 | XMS REPORT | Summary of Care ---
:1980 Author Name KAY JOCELINE Address Unavailable Unavailable , Care Team Providers Name Role Phone JITENDRA Garcia Unavailable Unavailable HARLEY Garcia Unavailable Unavailable CHITRA Garcia Unavailable Unavailable STU Garcia Unavailable Unavailable JAZLYN CAR Unavailable Unavailable DOTTY aGrcia Unavailable Unavailable VIGNESH CAR Unavailable Unavailable KAY [...] therapy (V58.83, Z51.81) Status: Active Encounter for medical terminologist current azathioprine therapy (V58.69 , Z79.899) Status: [...] Details US Extremity lower venous Doppler Unilat 65026 Date: 020 History of Gallbladder surgery Completed [...] Active Name Dates Details Family history of osteoporosis (V17.81, Z82.62) Status: Active Family history of osteoarthritis (V17.89, Z82.69) Status: Active Name Dates Details Family history of osteoporosis (V17.81, Z82.62) Status: Active Family history of osteoarthritis (V17.89, Z82.69) Status: Active Family history of gout (V18.19, Z82.69) Status: Active Family history of pulmonary embolism (V17.49, Z82.49) Status: Active Family history of hypothyroidism (V18.19, Z83.49) Status: Active Name Dates Details Family history of alcoholism (V17.0, Z81.1) Status: Active Family history of hypertension (V17.49, Z82.49) Status: Active Social History Name Dates Details [...] Provided Labs/Procedures/ImagingUS Extremity lower venous Doppler Unilat 51845; To Be Done: 23 Dec 2019 Instructions [...]
--- OUTSIDE RECORDS SUMMARY | 2020-01-27 20:41 | XMS REPORT | Summary of Care ---
:1980 Author Name KAY JOCELINE Address Unavailable Unavailable , Care Team Providers Name Role Phone JITENDRA Garcia Unavailable Unavailable HARLEY Garcia Unavailable Unavailable CHITRA Garcia Unavailable Unavailable STU Garcia Unavailable Unavailable JAZLYN CAR Unavailable Unavailable DOTTY Garcia Unavailable Unavailable VIGNESH CAR Unavailable Unavailable KAY PULLER OUT Unavailable Unavailable VANESA N.P. 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 (V58.69 , [...] leg swelling (729.81, M79.89) Statu s: Active Contusion of right ankle, initial encounter (924.21, S90.01X A) Status: Active Sprain of deltoid ligament of left ankle, initial encounter (845.01, S93.422A) Status: Active Sprain of tarsal ligament of left foot, initial encounter (8 45.19, S93.612A) Status: Active Medications Name Dates Details Propranolol [...] 4 HOURS NEEDED Quantity: 1 Refills: 5 CHITRA Garcia CASTILLO Start : 02-Feb-2019 Active 6.7 GM Inhaler CPAP Continuous Positive Airway Pressure Please provide patient with all necessary CPAP supplies including mask (please fit), tubing, filters, etc. Good for ONE YEAR Quantity: 1 Refills: 0 CHITRA Garcia CASTILLO Start : 09-Mar-2019 Active Fluticasone-Salmeterol 500-50 MCG/DOSE Inhalation Aerosol Powder Breath Activated INHALE ONE PUFF BY MOUTH TWICE A DAY Quantity: 1 Refills: 3 CHITRA Garcia CASTILLO Start : 08-Apr-2019 Active 60 Each Pack [...] Start : 24-Aug-2019 Active 21 Tablet Pack Ondansetron 4 MG Oral Tablet Disintegrating Every 8 hours as needed for nausea Quantity: 8 Refills: 0 VANESA N.P., YANELI Start : 01-Jan-2020 Active Acetaminophen-Codeine #3 300-30 MG Oral Tablet TAKE 1 TABLET EVERY 6 HOURS NEEDED FOR PAIN. Quantity: 20 Refills: 0 VANESA N.P., YANELI Start : 01-Jan-2020 Active Allergies and Adverse Reactions Name Dates [...] Details US Extremity lower venous Doppler Unilat 07777 Date: 020 History of Gallbladder surgery Completed [...] Appointment; BRANDT BILL M.D. On: 19-Jan-2020 10 :40 Appointment; BRANDT BILL M.D. On: 19-Jan-2020 10 :50 Appointment; HECTOR STORM M.D. On: 27-Jan-2020 15:30 Interventions Provided Medication ChangesAcetaminophen-Codeine #3 300-30 MG Oral Tablet - Start Ondansetron 4 MG Oral Tablet Disintegrating - StartSuppliesWheelchair; To Be Done: 01 Jan 2020 Instructions Name Dates Details Instructions not documented Encounters Appointment; COREY HOBSON APRN On: 29-Dec-2018 13:00 Encounter Diagnosis: Problem not documented Appointment; RXOANN SOUZA M.D. On: 13-Jan-2019 8:00 Encounter Diagnosis: Problem not documented Appointment; CASTILLO BUENROSTRO M.D. On: 14-Jan-2019 8:30 Encounter Diagnosis: Problem not documented Appointment; DICKSON CAHPA On: 14-Jan-2019 9:00 Encounter Diagnosis: Problem not [...] Encounter Diagnosis: Problem not documented Appointment; ELOISE DAOMN On: 07-Aug-2019 10:00 Encounter Diagnosis: Problem not [...] 11 :10 Encounter Diagnosis: Problem not documented Appointment; YANELI ALEXIS NP On: 01-Jan-2020 9:50 Encounter Diagnosis: Problem not documented
--- OUTSIDE RECORDS SUMMARY | 2020-01-27 20:42 | XMS REPORT | Summary of Care ---
:1980 Author Name Ilana Address Unavailable Unavailable , Care Team Providers Name Role Phone JITENDRA Garcia Unavailable Unavailable HARLEY Garcia Unavailable Unavailable Ilana Unavailable Unavailable CHITRA Garcia Unavailable Unavailable STU Garcia Unavailable Unavailable JAZLYN CAR Unavailable Unavailable DOTTY Garcia Unavailable Unavailable VIGNESH YEEN Unavailable Unavailable KAY TEST LAB TECHNICIAN Unavailable Unavailable VANESA N.P. Unavailable Unavailable PERSAUD [...] not documented Status: Problems Name Dates Details Sprain of calcaneofibular ligament of left ankle, sequela (9 05.7, S93.412S) Status: Active Sprain of deltoid ligament of left ankle, initial encounter (845.01, S93.422A) Status: Active Sprain of tarsal ligament of left foot, initial encounter (8 45.19, S93.612A) Status: Active Contusion of right ankle, initial encounter (924.21, S90.01X A) Status: Active Other synovitis and tenosynovitis, right ankle and foot (727 .06, M65.871) Status: Active Colitis (558.9, K52.9) Status: Active Vaginal candidiasis (112.1, B37.3) Statu s: Active Headache (784.0, R51) Status: Active Sprain of calcaneofibular ligament of le ft ankle, subsequent encounter (V58.89, S93.412D) Status: Active Sprain of calcaneofibular ligament of left ankle, sequela (9 05.7, S93.412S) Status: Active Ankle pain, left (719.47, M25.572) Statu s: Active Left leg swelling (729.81, M79.89) Statu s: Active Other synovitis and tenosynovitis, left ankle and foot (727. 06, M65.872) Status: Active Endometriosis (617.9, N80.9) Status: Act luzmaria Anxiety and depression (300.00, F41.9) S tatus: Active Injury, foot, left, initial encounter (959.7, S99.922A) Status: Active Recurrent UTI (urinary tract infection) (599.0, N39.0) Status: Active Hypertriglyceridemia (272.1, E78.1) Stat us: Active Urethritis, nonspecific (099.40, N34.1) Status: Active Drug testing, pre-employment (V70.5, Z02.1) Status: Active Spleen enlargement (789.2, R16.1) Status : Active Diarrhea (787.91, R19.7) Status: Active Chronic GERD (530.81, K21.9) Status: Act luzmaria Ulcerative colitis (556.9, K51.90) Statu s: Active Abdominal pain (789.00, R10.9) Status: A ctive Back muscle spasm (724.8, M62.830) Statu s: Active Chronic left sacroiliac pain (724.6, M53.3) Status: Active Lumbar facet arthropathy (721.3, M47.816) Status: Active Lumbar spondylosis (721.3, M47.816) Stat us: Active Anxiety (300.00, F41.9) Status: Active PTSD (post-traumatic stress disorder) (309.81, F43.10) Status: Active History of rheumatoid arthritis (V13.4, Z87.39) Status: Active Chest pain, atypical (786.59, R07.89) St atus: Active Asthma (493.90, J45.909) Status: Active Obesity, morbid (more than 100 lbs over ideal weight or BMI > 40) (278.01, E66.01) Status: Active RILEY (obstructive sleep apnea) (327.23, G47.33) Status: Active PCOS (polycystic ovarian syndrome) (256.4, E28.2) Status: Active Palpitations (785.1, R00.2) Status: Acti ve Rheumatoid arthritis (714.0, M06.9) Stat us: Active Depression (311, F32.9) Status: Active Dyspnea (786.09, R06.00) Status: Active Chest pain at rest (786.50, R07.9) Statu s: Active Chronic neck pain (723.1, M54.2) Status: Active Arthralgia of both knees (719.46, M25.561) Status: Active On corticosteroid therapy (V58.65, Z79.52) Status: Active Costochondritis (733.6, M94.0) Status: A ctive Arthralgia of right knee (719.46, M25.561) Status: Active Pain of left clavicle (733.90, M89.8X1) Status: Active Pain of right clavicle (733.90, M89.8X1) Status: Active Tendinitis of left pectoralis major (726.10, M75.82) Status: Active Tendinitis of right infraspinatus tendon (726.10, M75.81) Status: Active Tendinitis of right pectoralis major (726.10, M75.81) Status: Active Right supraspinatus tendinitis (726.10, M75.91) Status: Active Tear of right infraspinatus tendon, initial encounter (840.3 , S46.811A) Status: Active Osteoarthritis (715.90, M19.90) Status: Active Chronic right sacroiliac joint pain (724.6, M53.3) Status: Active Humerus lesion, right (733.90, M89.9) St atus: Active Abnormal urinalysis (791.9, R82.90) Stat us: Active Myofascial pain syndrome (729.1, M79.18) Status: Active Hypermobility arthralgia (719.40, M25.50) Status: Active Chronic left shoulder pain (719.41, M25.512) Status: Active Chronic right shoulder pain (719.41, M25.511) Status: Active Fibromyalgia (729.1, M79.7) Status: Acti ve Encounter for monitoring golimumab therapy (V58.83, Z51.81) Status: Active Facial rash (782.1, R21) Status: Active Encounter for correction current azathioprine therapy (V58.69 , Z79.899) Status: Active Lumbar pain (724.2, M54.5) Status: Activ e Morbid obesity (278.01, E66.01) Status: Active Chronic low back pain (724.2, M54.5) Sta tus: Active Medications Name Dates Details Propranolol HCl [...] FOR 12HOURS. Quantity: 1 Refills: 0 HARLEY GarciaROXANN Start : 02-Feb-2019 Active 30 Patch Box [...] Z87.11) Status: Resolved Procedures Procedure Dates Details Post Op Promis 29 Survey Date: 08-Jan-2020 US Extremity lower venous Doppler Unilat 58499 Date: 020 History of Ureterectomy Completed History of Gallbladder surgery Completed History of Endometrial ablation Complete d History of Kidney surgery Completed History of Sinus Surgery Completed History of Adenoidectomy Completed History of Cholecystectomy Completed Immunization Name Dates Details Tdap on: [...] STORM M.D. On: 27-Jan-2020 15:30 Interventions Provided Labs/Procedures/ImagingPost Op Promis 29 Survey; To Be Done: 08 Jan 2020 Instructions Name Dates Details Instructions [...]
--- OUTSIDE RECORDS SUMMARY | 2020-01-27 20:42 | XMS REPORT | Summary of Care ---
:1980 Author Name DOTTY Garcia Address Unavailable Unavailable , Care Team Providers Name Role Phone JITENDRA Garcia Unavailable Unavailable HARLEY Garcia Unavailable Unavailable CHITRA Garcia Unavailable Unavailable STU Garcia Unavailable Unavailable JAZLYN CAR Unavailable Unavailable DOTTY Garcia Unavailable Unavailable VIGNESH YEEN Unavailable Unavailable KAY LIGHTING ENGINEER Unavailable Unavailable VANESA N.P. Unavailable Unavailable PERSAUD [...] therapy (V58.83, Z51.81) Status: Active Encounter for retirement current azathioprine therapy (V58.69 , Z79.899) Status: [...] initial encounter (8 45.19, S93.612A) Status: Active Bipolar 2 disorder (296.89, F31.81) Stat us: Active Medications Name Dates Details Propranolol HCl - 20 MG Oral Tablet TAKE ONE TABLET BY MOUTH TWICE A DAY NEEDED Quantity: 60 Refills: 2 HECTOR STORM M.D. Start : 29-Dec-2018 Active traZODone HCl - 100 MG Oral Tablet TAKE ONE TABLET BY MOUTH AT BEDTIME Quantity: 90 Refills: 1 HECTOR STROM M.D. Start : 29-Dec-2018 Active Neurontin 800 [...] TAKE DIRECTED Quantity: 1 Refills: 0 HOLGER PERAAZ M.D. Start : 24-Aug-2019 Active 21 Tablet Pack Ondansetron 4 MG Oral Tablet Disintegrating Every 8 hours as needed for nausea Quantity: 8 Refills: 0 VANESA N.P., YANELI Start : 01-Jan-2020 Active Acetaminophen-Codeine #3 300-30 MG Oral Tablet TAKE 1 TABLET EVERY 6 HOURS NEEDED FOR PAIN. Quantity: 20 Refills: 0 VANESA N.P., YANELI Start : 01-Jan-2020 Active lamoTRIgine 25 MG Oral Tablet Take 1 tab daily for 2 weeks and then take 2 tabs daily Quantity: 60 Refills: 0 HECTOR STORM M.D. Start : 27-Jan-2020 Active Allergies and Adverse Reactions Name Dates [...] 08-Jan-2020 US Extremity lower venous Doppler Unilat 00290 Date: 020 History of Gallbladder surgery Completed [...] documented Planned Encounters Appointment; ELOISE DAMON On: 03-Feb-2020 13:15 Appointment; BRANDT BILL M.D. On: 09-Feb-2020 11 :00 Appointment; HECTOR STORM M.D. On: 24-Feb-2020 9:00 Interventions Provided Medication ChangeslamoTRIgine 25 MG Oral Tablet - StartPlanPTSD. anxiety and depression. Bipolar faimily hx and related symptoms.-- stop trintellix-- start lamotrigine 25mg daily 2 wks and then 50mg daily 2 wks.-- continue propranolol 20mg bid prn. for anxiety Panic attacks.-- continue trazodone 100mg bedtime for sleep.-- Medication risks benefits side effects (SJS syn need ER care) alternatives discussed.-- Safety plan discussed, encouraged to call suicidal hotline, call 911, or go to the nearest the ERif feeling activity suicidal.-- referral psychotherapy.RTC 1 m.Discussion/SummaryProgress made toward Goal moderate progress. Additional notes and Recommendations. Client will continue with counseling services. Discussed the following with patient/family/other Safety issues Bio-psychosocial factors. Co-Morbidities. Safety plan. Alternative medication(s). Current medication(s). Risks/benefits. Side effects. Target symptoms. Treatment plan. Diagnosis. Instructions Name Dates Details Instructions not documented [...] 01-Jan-2020 9:50 Encounter Diagnosis: Problem not documented Appointment; HECTOR STORM M.D. On: 27-Jan-2020 15:30 Encounter Diagnosis: Problem not documented
[2020-01-28 01:02] LABS: Basophils % 1.4 % (0-1.3); Hematocrit 42.4 % (36.0-45.0); Protime INR 1.16; RBC Red Blood Cell Count 4.89 M/uL (3.86-4.86)
[2020-01-28 01:09] LABS: Barbiturates NEGATIVE (NEGATIVE); Benzodiazepines NEGATIVE (NEGATIVE); Cocaine NEGATIVE (NEGATIVE); METHAMPHETAM NEGATIVE (NEGATIVE); Methadone NEGATIVE (NEGATIVE); Opiates NEGATIVE (NEGATIVE); Phencyclidine NEGATIVE (NEGATIVE); THC Cannibis NEGATIVE (NEGATIVE)
[2020-01-28 01:22] LABS: ALT/SGPT 30 U/L (12-78); AST/SGOT 20 U/L (15-37); Albumin 3.7 g/dL (3.4-5.0); Alkaline Phosphatase 120 U/L (45-117); BUN Blood Urea Nitrogen 22 mg/dL (7-18); Bicarbonate 24 mmol/L (21-32); Bilirubin Direct < 0.1 mg/dL (0-0.2); Bilirubin Total 0.3 mg/dL (0.2-1.0); Glucose Level 96 mg/dL (74-106); Magnesium 1.8 mg/dL (1.8-2.4); NT PRO-BNP 41 pg/mL (<125); Protein, Total 8.3 g/dL (6.4-8.2); Sodium Level 140 mmol/L (136-145); Troponin (Emerg Dept Use Only) < 0.02 ng/mL (0.0-0.045)
[2020-01-28 02:30] LABS: Urine Blood 1+ (NEG); Urine Glucose NEGATIVE (NEG); Urine Protein NEGATIVE (NEG); Urine Specific Gravity >1.030 (1.005-1.030); Urine pH 5.5 (5.0-7.0)
--- NOTE | 2020-01-28 03:53 | ER ---
Nurse's Notes [facility] Name: Emilia Lora Age: 39 yrs Sex: Female : 1980 Arrival Date: 01/27/2020 Time: 20:36 Bed 8 Private MD: Diagnosis: Chest Pain;Dyspnea;Dysuria Presentation: 01/26 21:11 Chief complaint: Patient states: Diagnosed with PE a month ago and L popliteal DVT. ca1 Taking Eliquis 2x a day. Sometime today, started having SOB at rest. Chest pains , intermittent, since today and last night. On and off cough x 2 weeks. Urinary frequency and urinary urgency and history of recurring UTIs. Denies fever. Coronavirus screen: Coronavirus screen: Client denies travel out of the [place] in the last 14 days. cough unrelated to allergies, shortness of breath, Client presents with at least one sign or symptom that may indicate coronavirus-19. Standard/surgical mask placed on the client. Provider contacted for isolation considerations. Ebola Screen: Patient negative for fever greater than or equal to 101.5 degrees Fahrenheit, and additional compatible Ebola Virus Disease symptoms Patient denies exposure to infectious person. Patient denies travel to an Ebola-affected area in the 21 days before illness onset. No symptoms or risks identified at this time. Initial Sepsis Screen: Does the patient meet any 2 criteria? No. Patient's initial sepsis screen is negative. Does the patient have a suspected source of infection? No. Patient's initial sepsis screen is negative. Risk Assessment: Do you want to hurt yourself or someone else? Patient reports no desire to harm self or others. Onset of symptoms was January 27, 2020. 21:11 Method Of Arrival: Wheelchair ca1 21:11 Acuity: VINITA 3 ca1 TOBACCO SHAKER: 21:20 LMP 01/24/2020 ca1 Historical: - Allergies: 21:20 Celebrex; ca1 21:20 Cipro; ca1 21:20 Keflex; ca1 21:20 Levofloxacin; ca1 21:20 Sulfasalazine; ca1 21:20 CEPHALOSPORINS; ca1 - Home Meds: 21:20 propranolol 20 mg Oral tab 1 tab 3 times per day [Active]; Eliquis 5 mg oral tab 1 tab ca1 2 times per day [Active]; - PMHx: 21:20 hypermobility sydrome; Rheumatoid Arthritis; rib cage cartlige swelling; Sleep Apnea; ca1 ulcerative colitis; PE; DVT; - PSHx: 21:20 RIGHT KIDNEY TAKEN OUT; LEFT ANKLE; ca1 - Immunization history:: Adult Immunizations up to date. - Social history:: Smoking status: Patient denies any tobacco usage or history of. Screenin:35 Abuse screen: Denies threats or abuse. Denies injuries from another. Nutritional rr5 screening: No deficits noted. Tuberculosis screening: No symptoms or risk factors identified. Fall Risk None identified. Total Carmichael Fall Scale indicates No Risk (0-24 pts). Assessment: 01/27 00:30 General: Appears in no apparent distress. Behavior is calm, cooperative, appropriate lp1 for age. Pain: Complains of pain in chest Pain does not radiate. Pain began gradually. Neuro: Level of Consciousness is awake, alert, obeys commands, Oriented to person, place, time, situation. Cardiovascular: Patient's skin is warm and dry. Respiratory: Airway is patent Respiratory effort is even, unlabored, Breath sounds are clear bilaterally. GI: Abdomen is obese. : Reports urinary frequency. EENT: No signs and/or symptoms were reported regarding the EENT system. Derm: Skin is pink, warm \T\ dry. Musculoskeletal: No deficits noted. 02:20 Reassessment: Patient appears in no apparent distress at this time. Patient is alert, lp1 oriented x 3, equal unlabored respirations, skin warm/dry/pink. Patient returned from CT. 03:51 Reassessment: Patient appears in no apparent distress at this time. Patient is alert, lp1 oriented x 3, equal unlabored respirations, skin warm/dry/pink. Dr. Bell at bedside to discuss results with patient; demonstrates understanding. Vital Signs: 01/26 21:11 BP 116 / 79; Pulse 92; Resp 18 S; Pulse Ox 97% on R/A; Weight 149.69 kg (R); Height 5 ca1 ft. 9 in. (175.26 cm) (R); 01/27 00:30 Temp 98.3(O); lp1 02:00 BP 114 / 52; Pulse 82; Resp 18; Pulse Ox 97% on R/A; lp1 03:30 BP 121 / 52; Pulse 80; Resp 18; Pulse Ox 98% on R/A; lp1 01/26 21:11 Body Mass Index 48.73 (149.69 kg, 175.26 cm) ca1 ED Course: 01/26 20:36 Patient arrived in ED. es 21:18 Triage completed. ca1 21:20 Arm band placed on right wrist. ca1 23:07 Jonathan Adames PA is PHCP. cp 23:08 Maldonado Bell MD is Attending Physician. mh7 23:34 Bob Cardoza, RN is Primary Nurse. rr5 23:35 Patient has correct armband on for positive identification. Placed in gown. Bed in low rr5 position. Call light in reach. Side rails up X2. medical assistant ob gyn on. Pulse ox on. NIBP on. 01/27 00:04 Ronna Avila, RN is Primary Nurse. lp1 00:45 Missed attempt(s): 20 gauge in right antecubital area. Inserted saline lock: 20 gauge lp1 in left antecubital area, using aseptic technique. 01:03 Patient maintains SpO2 saturation greater than 95% on room air. lp1 02:34 CT Chest For PE Angio In Process Unspecified. EDMS 03:51 No provider procedures requiring assistance completed. lp1 04:05 IV discontinued, No redness/swelling at site. Pressure dressing applied. lp1 04:52 XRAY Chest (1 view) In Process Unspecified. EDMS Administered Medications: No medications were administered Outcome: 03:53 Discharge ordered by . 7 04:05 Discharged to home via wheelchair. lp1 04:05 Condition: good 04:05 Discharge instructions given to patient, Instructed on discharge instructions, follow up and referral plans. medication usage, Demonstrated understanding of instructions, follow-up care, medications, Prescriptions given X 2. 04:05 Patient left the ED. lp1 Signatures: Dispatcher [employer] EDMS Estela Barahona Ronna Aivla, RN RN lp1 Jonathan Adames PA PA cp Bob Cardoza, MITALI RN rr5 Kiarra Short RN RN ca1 Maldonado Bell MD MD [facility]
--- NOTE | 2020-01-28 03:53 | EDPHYS ---
Physician Documentation [facility] Name: Emilia Lora Age: 39 yrs Sex: Female : 1980 Arrival Date: 01/27/2020 Time: 20:36 Bed 8 Private MD: ED Physician Maldonado Bell HPI: 01/27 00:46 This 39 yrs old Female presents to ER via Wheelchair with complaints of Chest mh7 Pain, Shortness Of Breath, Urinary Frequency. 00:46 The patient or guardian reports chest pain that is located primarily in the substernal mh7 area. The pain does not radiate. Associated signs and symptoms: Pertinent positives: cough, shortness of breath, Pertinent negatives: abdominal pain, diaphoresis, dizziness, headache, lower extremity pain, lower extremity swelling, lightheadedness, nausea, near syncope, palpitations, recent travel, syncope, vomiting. The chest pain is described as sharp. Duration: The patient or guardian reports multiple episodes, that are intermittent, that wax and wane, with no pattern. Modifying factors: The symptoms are alleviated by nothing. the symptoms are aggravated by nothing. Severity of pain: At its worst the pain was moderate yesterday, in the emergency department the pain has improved moderately. The patient has been recently seen by a physician: 1 month(s) ago. Patient chest pain, SOB, and cough that started yesterday. States that she was treated for PE one month ago and was started on Eliquis. Denies any fever, abdominal pain, nausea, vomiting, sick contacts, or recent travel.. 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 - Social history:: Smoking status: Patient denies any tobacco usage or history of. ROS: 01/27 00:46 Constitutional: Negative for fever, chills, and weight loss, Eyes: Negative for injury, mh7 pain, redness, and discharge, ENT: Negative for injury, pain, and discharge, Neck: Negative for injury, pain, and swelling, Abdomen/GI: Negative for abdominal pain, nausea, vomiting, diarrhea, and constipation, Back: Negative for injury and pain, MS/Extremity: Negative for injury and deformity, Skin: Negative for injury, rash, and discoloration, Neuro: Negative for headache, weakness, numbness, tingling, and seizure, Psych: Negative for depression, anxiety, suicide ideation, homicidal ideation, and hallucinations, Allergy/Immunology: Negative for hives, rash, and allergies, Endocrine: Negative for neck swelling, polydipsia, polyuria, polyphagia, and marked weight changes, Hematologic/Lymphatic: Negative for swollen nodes, abnormal bleeding, and unusual bruising. Exam: 00:46 Constitutional: This is a well developed, well nourished patient who is awake, alert, mh7 and in no acute distress. Head/Face: Normocephalic, atraumatic. Eyes: Pupils equal round and reactive to light, extra-ocular motions intact. Lids and lashes normal. Conjunctiva and sclera are non-icteric and not injected. Cornea within normal limits. Periorbital areas with no swelling, redness, or edema. Neck: Trachea midline, no thyromegaly or masses palpated, and no cervical lymphadenopathy. Supple, full range of motion without nuchal rigidity, or vertebral point tenderness. No Meningismus. Chest/axilla: Normal chest wall appearance and motion. Nontender with no deformity. No lesions are appreciated. Cardiovascular: Regular rate and rhythm with a normal S1 and S2. No gallops, murmurs, or rubs. Normal PMI, no JVD. No pulse deficits. Respiratory: Lungs have equal breath sounds bilaterally, clear to auscultation and percussion. No rales, rhonchi or wheezes noted. No increased work of breathing, no retractions or nasal flaring. Abdomen/GI: Soft, non-tender, with normal bowel sounds. No distension or tympany. No guarding or rebound. No evidence of tenderness throughout. Back: No spinal tenderness. No costovertebral tenderness. Full range of motion. Skin: Warm, dry with normal turgor. Normal color with no rashes, no lesions, and no evidence of cellulitis. MS/ Extremity: Pulses equal, no cyanosis. Neurovascular intact. Full, normal range of motion. Neuro: Awake and alert, GCS 15, oriented to person, place, time, and situation. Cranial nerves II-XII grossly intact. Motor strength 5/5 in all extremities. Sensory grossly intact. Cerebellar exam normal. Normal gait. Psych: Awake, alert, with orientation to person, place and time. Behavior, mood, and affect are within normal limits. 04:32 ECG was reviewed by the Attending Physician. [facility] Vital Signs: 01/26 21:11 BP 116 / 79; Pulse 92; Resp 18 S; Pulse Ox 97% on R/A; Weight 149.69 kg (R); Height 5 ca1 ft. 9 in. (175.26 cm) (R); 01/27 00:30 Temp 98.3(O); lp1 02:00 BP 114 / 52; Pulse 82; Resp 18; Pulse Ox 97% on R/A; lp1 03:30 BP 121 / 52; Pulse 80; Resp 18; Pulse Ox 98% on R/A; lp1 01/26 21:11 Body Mass Index 48.73 (149.69 kg, 175.26 cm) ca1 MDM: 00:05 Patient medically screened. [facility] 03:50 Differential diagnosis: acute myocardial infarction, acute pericarditis, anxiety, chest 7 wall pain, costochondritis, pleurisy, pneumonia, pneumothorax, pulmonary embolus. HEART Score: History: Slightly Suspicious (0), ECG: Normal (0), Age: < or = 45 years (0), Risk Factors: 1 or 2 risk factors (1), [Obesity] Troponin: < or = 1 x Normal Limit (0), Total Score = 1. Data reviewed: vital signs, nurses notes, lab test result(s), cardiac enzymes, CBC, electrolytes, urinalysis, EKG, radiologic studies, CT scan, plain films. Data interpreted: Pulse oximetry: on room air is 98 %. Interpretation: normal. Counseling: I had a detailed discussion with the patient and/or guardian regarding: the historical points, exam findings, and any diagnostic results supporting the discharge/admit diagnosis, lab results, radiology results, the need for outpatient follow up, to return to the emergency department if symptoms worsen or persist or if there are any questions or concerns that arise at home. Response to treatment: the patient's symptoms have resolved after treatment, the patient's blood pressure is in an acceptable range, mental status has returned to baseline, the patient no longer shows bradycardia, the patient is not short of breath, the patient is not tachycardic, the patient's pain is gone, the patient's temperature has normalized. 01/27 00:22 Order name: Urine Dipstick--Ancillary (enter results); Complete Time: 03:47 mw2 01/27 00:22 Order name: Urine --Ancillary (enter results); Complete Time: 03:47 2 01/27 00:55 Order name: Basic Metabolic Panel; Complete Time: 01:38 EDNC 08 00:55 Order name: Liver (Hepatic) Function; Complete Time: 01:38 [facility] 01/27 00:55 Order name: Troponin (Emerg Dept Use Only); Complete Time: 01:38 EDMS 08 21:38 Order name: EKG; Complete Time: 21:39 ca1 08 21:38 Order name: EKG - Nurse/Tech; Complete Time: 21:38 ca1 01/27 00:04 Order name: Urine Dipstick-Ancillary (obtain specimen); Complete Time: 00:04 lp1 08/06 00:08 Order name: XRAY Chest (1 view) [facility] 01/27 00:08 Order name: Cardiac monitoring; Complete Time: 00:19 [facility] 01/27 00:08 Order name: IV Saline Lock; Complete Time: 01:05 [facility] 01/27 00:08 Order name: Labs collected and sent; Complete Time: 01:05 [facility] 01/27 00:08 Order name: O2 Per Protocol; Complete Time: 00:20 [facility] 01/27 00:08 Order name: O2 Sat Monitoring; Complete Time: 00:20 [facility] 01/27 00:55 Order name: NT PRO-BNP; Complete Time: 01:38 [facility] 08 00:55 Order name: Magnesium; Complete Time: 01:38 [facility] 01/27 00:55 Order name: CBC with Automated Diff; Complete Time: 01:38 EDMS 01/27 00:55 Order name: Protime (+INR); Complete Time: :38 EDMS 01/27 00:55 Order name: Urine Drug Screen; Complete Time: :38 EDMS 01/27 00:55 Order name: Influenza Screen (A EDNC 01/27 01:40 Order name: CT Chest For PE Angio 7 01/27 00:08 Order name: Urine Test (obtain specimen); Complete Time: 00:09 [facility] EC:32 Rate is 92 beats/min. Rhythm is regular, Normal Sinus Rhythm. QRS [place] is Normal. NE mh7 interval is normal. QRS interval is normal. QT interval is normal. No Q waves. T waves are Normal. No ST changes noted. Clinical impression: Normal ECG. Administered Medications: No medications were administered Disposition: 06:18 Co-signature as Attending Physician, Maldonado Bell MD. [facility] Disposition: 01/28/20 03:53 Discharged to Home. Impression: Chest Pain, Dyspnea, Dysuria. - Condition is Stable. - Discharge Instructions: Dysuria, Shortness of Breath, Clqz-[id number], Nonspecific Chest Pain, Khxv-fp-Tyob. - Prescriptions for Pyridium 200 mg Oral Tablet - take 1 tablet by ORAL route every 8 hours for 2 days; 6 tablet. Macrobid 100 mg Oral Capsule - take 1 capsule by ORAL route every 12 hours for 7 days; 14 capsule. - Medication Reconciliation Form, Thank You Letter, Antibiotic Education, Prescription Opioid Use form. - Follow up: Private Physician; When: 1 - 2 days; Reason: Worsening of condition, Recheck today's complaints, Continuance of care, Re-evaluation by your physician. - Problem is new. - Symptoms have improved. Signatures: Dispatcher [employer] EDNC Ronna Avila RN RN lp1 Kiarra Short RN RN ca1 Maldonado Bell MD MD [facility] Corrections: (The following items were deleted from the chart) 01:30 01:22 URINE DRUG SCREEN+CHEM UR.LAB.BRZ ordered. EDNC EDMS 30 01:23 Influenza Screen (A \T\ B)+BA.LAB.BRZ ordered. EDNC EDMS 01:22 BASIC METABOLIC PANEL+C.LAB.BRZ ordered. EDNC EDMS 01:22 CBC+H.LAB.BRZ ordered. [facility] EDNC 01:22 HEPATIC FUNCTION+C.LAB.BRZ ordered. [facility] 01:22 MAGNESIUM+C.LAB.BRZ ordered. [facility] 01:22 PROBNP+C.LAB.BRZ ordered. [facility] 01:22 PROTIME (+INR)+COAG.LAB.BRZ ordered. [facility] 01:22 TROPONIN (EMERG DEPT USE ONLY)+C.LAB.BRZ ordered. [facility] 04:05 03:53 01/28/2020 03:53 Discharged to Home. Impression: Chest Pain; Dyspnea; Dysuria. lp1 Condition is Stable. Forms are Medication Reconciliation Form, Thank You Letter, Antibiotic Education, Prescription Opioid Use. Follow up: Private Physician; When: 1 - 2 days; Reason: Worsening of condition, Recheck today's complaints, Continuance of care, Re-evaluation by your physician. Problem is new. Symptoms have improved. mh7
[2020-01-28 04:17] VITALS: TEMP 98.3
[2020-01-28 04:19] VITALS: BP 121/52; O2SAT 98
--- NOTE | 2020-01-28 08:48 | RAD REPORT ---
EXAM DESCRIPTION: RAD - Chest Single View - 01/28/2020 4:52 am CLINICAL HISTORY: CHEST PAIN COMPARISON: Portable August 13 TECHNIQUE: AP portable chest image was obtained 01/28/2020 4:52 am . FINDINGS: Lung vega are clear. Large body habitus overlying soft tissues accentuate lung markings. Heart and vasculature are normal. No measurable pleural effusion and no pneumothorax. No acute bony abnormality seen. No acute aortic findings suspected. IMPRESSION: No acute cardiopulmonary process. No significant interval change.
--- NOTE | 2020-01-28 10:38 | RAD REPORT ---
EXAM DESCRIPTION: CT - Chest For Pe Angio - 01/28/2020 2:35 am CLINICAL HISTORY: DVT one month ago. Shortness of breath and chest pain since yesterday with intermi ttent coughing. COMPARISON: None. TECHNIQUE: Axial CT imaging of the thorax utilizing intravenous contrast. Reformatted multiplanar im ages obtained including reconstructed maximum intensity projection images. This exam was performed according to our departmental dose-optimization program which includes automa svetlana exposure control, adjustment of the mA and/or kV according to patient size and/or use of iterativ e reconstruction technique FINDINGS: PULMONARY ARTERIES: Normal caliber main pulmonary artery. No filling defect within the ri ght atrium, right ventricle, central or peripheral pulmonary arteries. HEART/GREAT VESSELS: Heart is upper normal in size. There is trace pericardial fluid. Normal caliber thoracic aorta. MEDIASTINUM/TASNEEM: Nonenlarged mediastinal lymph nodes. Normal central airways. Unremarkable esophagu s. LUNGS/PLEURA: Lungs are clear. Pleural spaces are clear. CHEST WALL/SOFT TISSUES: Unremarkable thyroid. No axillary lymphadenopathy. Sternum is intact. Unrem arkable thoracic spine. Remaining bony thorax appears unremarkable. UPPER ABDOMEN: Unremarkable imaged portions of the liver, spleen, stomach, left adrenal gland, and s uperior left kidney. IMPRESSION: 1. No pulmonary embolism. 2. Trace pericardial effusion. Electronically signed by: Anamika Paulson DO 01/28/2020 2:50 AM CDT Due to temporary technical issues with the PACS/Fluency reporting system, reports are being signed by the in house radiologist without review as a courtesy to ensure prompt reporting. The interpreting r adiologist is fully responsible for the content of the report.
== END 2020-01-28 04:05 | disposition home or self-care (01) ==
LOC: ER 20:25
DX: R07.9 Chest pain, unspecified (principal); R30.0 Dysuria; R06.00 Dyspnea, unspecified; I82.409 Acute embolism and thrombosis of unspecified deep veins of unspecified lower extremity; Z88.1 Allergy status to other antibiotic agents; Z88.2 Allergy status to sulfonamides; Z88.8 Allergy status to other drugs, medicaments and biological substances
CPT/HCPCS: 93005; 85025; 80048; 36415; 83735; 81025; 85610; 80076; 80307 ×8; 81003; 84484; 83880; 87804 ×2; 71275; 71045; Q9967; 99285

== ENCOUNTER 2020-05-29 16:44 | Emergency (ER) | payer OTHER ==
--- OUTSIDE RECORDS SUMMARY | 2020-05-29 16:48 | XMS REPORT | Clinical Summary ---
:1980 Author Organization [facility] Address [address] [place] [address] Care Team Providers Name Role Phone Amanda [...] Status buPROPion XL Take 300 mg by mouth 0 Active (WELLBUTRIN XL) 300 daily. MG 24 hr tablet escitalopram Take 20 mg by mouth 0 03/20/2016 Active (LEXAPRO) 20 MG daily. tablet L. RHAMNOSUS Take 1 tablet by 0 Active GG/INULIN (CULTURELLE mouth daily. PROBIOTICS ORAL) traZODone (DESYREL) Take 100 mg by mouth 0 Active 100 MG tablet 2 (two) times a day. mesalamine (LIALDA) [...] 50 mg/0.5 mL INJECT 1 PEN (50 MG) 1 Syringe 2 10/02/19 18 Active pen SUBCUTANEOUSLY EVERY injectorIndications: 28 DAYS. Inflammatory polyarthropathy (HCC), Enteropathic arthritis, Moderate chronic ulcerative colitis with complication (HCC), Acute bilateral low back pain with sciatica, sciatica laterality unspecified, Chronic low back pain with sciatica, sciatica laterality unspecified, unspecified back pain laterality Active Problems Problem Noted Date Enteropathic arthritis [...] nausea 01/22/2016 Sprain of right knee/leg 01/03/2016 Immunizations Name Administration Dates Next Due FLUZONE QUAD PF 04/17/2016 Surgical History Surgery Date Site/Laterality Comments ADENOIDECTOMY NEPHRECTOMY CHOLECYSTECTOMY TN EGD TRANSORAL BIOPSY 01/23/2016 N/A Procedur e: SINGLE/MULTIPLE ESOPHAGOGASTRODU ODENOSCOPY (EGD); Surgeon: Alessia Woodruff MD; Location: [facility] EN DOSCOPY; Service: Gastroe nterology ABDOMINAL SURGERY Endometrio rem oval, gall bladder, R. ureterectomy COLONOSCOPY 2004, 2007 Some failed atte mpts due to resistance to an ethesia UPPER GASTROINTESTINAL 2011, 2015 Previous attempts failed due to ENDOSCOPY resistance to se dation GALLBLADDER SURGERY 06/24/2000 - Gall stones 06/23/2001 SINUS SURGERY 1990, 2011 Bilateral reduct ion, baloon sinoplasty CHOLECYSTECTOMY UPPER GASTROINTESTINAL 2011, 2015 Previous attempts failed due to ENDOSCOPY resistance to se dation COLONOSCOPY 2004, 2007 Some failed atte mpts due to resistance to an ethesia ENDOMETRIAL ABLATION Medical History Medical History Date Comments Parks's esophagus PCOS (polycystic ovarian syndrome) Depression Asthma Gastroparesis ADHD (attention deficit hyperactivity 2000 disorder) Allergic 1989 Anxiety 1998 GERD (gastroesophageal reflux disease) 2014 HL (hearing loss) I would like to be t ested. Obesity Peptic ulceration 2016 Diagnosed by EGD. Visual impairment Chronic dry eye and loss of vision at night Complication of anesthesia 1995 resistant to sedation and anesthesia Parks esophagus 2012 Diagnosed by endosco py, but not seen in most recent EGD. Irritable bowel syndrome 2012 Possibly diagno sed in 2000 Chronic kidney disease 2012 Stage 2 mild Pancreatitis 2012 Chronic constipation 2001 on and off Chronic diarrhea 2001 on and off Gall stone 2001 Gall bladder removed same year Hemorrhoids 2000 Suscpected since 199 1 Complication of anesthesia 1995 resistant to sedation and anesthesia Parks esophagus 2012 Diagnosed by endosco py, but not seen in most recent EGD. Irritable bowel syndrome 2011 Possibly diagno sed in 2000 Chronic kidney disease 2012 Stage 2 mild GERD (gastroesophageal reflux disease) 2015 Ulcer disease 2016 Diagnosed with recen t enodcopy Pancreatitis 2012 Chronic constipation 2001 on and off Chronic diarrhea 2001 on and off Obesity Gall stone 2001 Gall bladder removed same year Gastroparesis Hemorrhoids 2000 Suscpected since 199 1 Acute medial meniscus tear 02/03/2016 Sprain of right knee/leg 01/03/2016 Tendonitis of elbow, right 03/29/2016 Cervical radiculopathy 03/29/2016 Ulcerative colitis with complication 04/28/2016 (HCC) Inflammatory polyarthritis (HCC) 08/30/2016 RILEY (obstructive sleep apnea) 04/01/2017 Family History Medical History Relation Name Comments [...] Grandmother Bates Sharla Cancer Maternal Grandmother Bates [place] Terminal li antoni cancer GERD Maternal Grandmother Bates [place] Liver cancer Maternal Grandmother Bates Sharla Ulcerative colitis Maternal Grandmother Bates Sharla Arthritis Mother Kiarra Vision loss Mother Kiarra Psuedo-tumor cer ebri Alcohol abuse Sister Ena Depression Sister Ena Irritable bowel syndrome Sister Ena Learning disabilities Sister Ena ADD Mental illness Sister Ena PTSD, anxiety Relation Name Status Comments Brother Jeronimo Brother Dave Father Norberto Maternal Grandfather Mahnaz Maternal Grandmother [place] Mother Kiarra Sister Ena Social History Tobacco [...] 01/23/2020 04/17/2016, 04/13/2015 Results Not on fileafter 05/29/2019 Advance Directives For more information, please contact: [phone] Type Date 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
--- OUTSIDE RECORDS SUMMARY | 2020-05-29 16:48 | XMS REPORT | Clinical Summary ---
:1980 Author Organization [facility] Address [address] [place] [address] Care Team Providers Name Role Phone Sharpless Primary Care Provider Pcp Primary Care Provider Unavailable Allergies Active Allergy Reactions Severity Noted Date Comments Adhesive Tape Hives 05/23/2010 Amoxicillin Diarrhea 03/02/2020 Amoxicillin-Pot Clavulanate Diarrhea 03/02/2020 Celecoxib Swelling 03/02/2020 tongue Cephalosporins Hives, Itching 03/02/2020 Ciprofloxacin (Bulk) Other (See Comments) 03/02/2020 tachycardia Levofloxacin Other (See Comments) 03/02/2020 tachyca rdia Nsaids (Non-Steroidal Swelling 05/23/2010 Face a nd tongue Anti-Inflammatory Drug) Sulfa (Sulfonamide Swelling 03/02/2020 Tongue sw elling Antibiotics) Medications Medication Sig Dispensed Refills Start Date End Date Status albuterol HFA Inhale 1 0 Active (VENTOLIN HFA) 90 puff by mcg/actuation mouth via inhaler inhaler every 6 (six) hours as needed for Wheezing. fluticasone-salmeter Inhale 1 0 Active ol (ADVAIR) 100-50 puff by mcg/dose diskus mouth via inhaler inhaler every 12 (twelve) hours. traZODone (DESYREL) Take 100 mg 0 Active 100 MG tablet by mouth nightly . apixaban (ELIQUIS) 5 Take 5 mg by 0 Active mg Tab tablet mouth 2 (two) times daily. mesalamine (LIALDA) Take 2,400 0 Active 1.2 gram EC tablet mg by mouth 2 (two) times daily. propranoloL Take 20 mg 0 Active (INDERAL) 20 MG by mouth 3 tablet (three) times daily. lamoTRIgine Take 100 mg 0 Active (LAMICTAL) 25 MG by mouth tablet nightly. gabapentin Take 800 mg 0 Active (NEURONTIN) 800 MG by mouth 3 tablet (three) times daily. dexlansoprazole 60 Take 60 mg 0 Active mg capsule by mouth daily. norethindrone-ethiny Take 1 0 Discontinued l estradiol tablet by 0 (Error) (MICROGESTIN 1/20) mouth daily. 1-20 mg-mcg per tablet dexlansoprazole 60 Take 60 mg 0 Discontinued mg capsule by mouth 0 (Error) daily. buPROPion HCl 450 mg Take 450 mg 0 02 Discontinued Tb24 by mouth 0 (Error) daily. nitrofurantoin, Take 100 mg 0 Di scontinued macrocrystal-monohyd by mouth 2 0 (Error) rate, (MACROBID) 100 (two) times MG capsule daily. Active Problems Problem Noted Date Ulcerative colitis 03/03/2020 Encounters Date Type Specialty Care Team Description 03/03/2020 Anesthesia Event Gastroenterology Sera Heart MD Ganderson, Shannan Dalal MD 03/03/2020 Surgery Gastroenterology Sydney Gonzalez COLONOSCO PY,BIOPSY MD Celine 03/03/2020 Hospital Encounter Gastroenterology Joseph Morales MD 03/03/2020 Travel 03/02/2020 Hospital Encounter Pre-Admission Testing 03/02/2020 Travel 01/27/2020 Outside Orders Central Scheduling Joseph Morales [facility] erative proctitis with rectal bleeding (HCC) (Primary Dx) after 05/29/2019 Social History Tobacco Use Types Packs/Day Years Used Date Never Smoker Smokeless Tobacco: Never Used Alcohol Use Drinks/Week oz/Week Comments Yes rarely Sex Assigned at Date Recorded Not on file Last Filed Vital Signs Vital Sign Reading Time Taken Comments Blood Pressure 110/48 03/03/2020 4:25 PM CDT Pulse 97 03/03/2020 4:25 PM CDT Temperature 37.3 C (99.1 F) 03/03/2020 4:25 PM CDT Respiratory Rate 18 03/03/2020 4:25 PM CDT Oxygen Saturation 97% 03/03/2020 4:25 PM CDT Inhaled Oxygen Concentration - - Weight 182.9 kg (403 lb 3.2 oz) 03/03/2020 11:50 AM CDT Height 175.3 cm (5' 9") 03/03/2020 11:50 AM CDT Body Mass Index 59.54 03/03/2020 11:50 AM CDT Plan of Treatment Health Maintenance Due Date Last Done Comments LIPID PANEL 2000 CERVICAL CANCER SCREENING PAP ONLY (Age 1205/28/2001 21-65) INFLUENZA VACCINE (#1) 2020 04/17/2016, 04/13/2015 Procedures Procedure Name Priority Date/Time Associated Comments Diagnosis REPORT OF PROCEDURE 03/03/2020 4:16 - ENDOSCOPY URL PM CDT REPORT OF PROCEDURE 03/03/2020 4:08 - ENDOSCOPY URL PM CDT TISSUE EXAM AP Routine 03/03/2020 2:37 Results for this PM CDT procedure are i n the results section. COLONOSCOPY,SUBMUCO 03/03/2020 2:16 Screening for vir al JAZMYN INJECTION PM CDT disease Ulcerative proctitis with rectal bleeding (HCC) COLONOSCOPY,POLYPEC 03/03/2020 2:16 Screening for vir al MAYLIN PM CDT disease Ulcerative proctitis with rectal bleeding (HCC) UPPER 03/03/2020 2:16 Screening for viral ENDOSCOPY,POLYPECTO PM CDT disease MY Ulcerative proctitis with rectal bleeding (HCC) UPPER 03/03/2020 2:16 Screening for viral ENDOSCOPY,BIOPSY PM CDT disease Ulcerative proctitis with rectal bleeding (HCC) COLONOSCOPY,BIOPSY 03/03/2020 2:16 Screening for merary l PM CDT disease Ulcerative proctitis with rectal bleeding (HCC) POCT , Routine 03/03/2020 7:27 Results for this URINE AM CDT procedure are i n the results section. after 05/29/2019 Results REPORT OF PROCEDURE - ENDOSCOPY URL (03/03/2020 4:16 PM CDT) Narrative Performed At This result has an attachment that is no t available. REPORT OF PROCEDURE - ENDOSCOPY URL (03/03/2020 4:08 PM CDT) Narrative Performed At This result has an attachment that is no t available. Tissue Exam (03/03/2020 2:37 PM CDT) Case Report Surgical Pathology Report Case: [id number] [facility] Authorizing Provider: Sydney Hinton MD Collected: 03/03/2020 02:37 PM [facility] Ordering Location: [facility] Endoscopy Received: 03/04/2020 08:23 AM [facility] Services Pathologist: Chani Rincon MD Specimens: A) - Duodenum, biopsy B) - Biop sy, Gastric, random C) - Poly p, Gastric, removed w forcep D) - Dist al Esophagus, biopsy E) - Prox imal Esophagus, biopsy F) - Cecu m, biospy G) - Biop sy, Terminal Ileum H) - Larg e Intestine, Colon - Right/Ascending, biopsy I) - Larg e Intestine, Colon - Transverse, biopsy J) - Larg e Intestine, Colon - Left/Descending, biopsy K) - Poly p, Colon - Left/Descending, removed w hot snare L) - Larg e Intestine, Colon - Sigmoid, biopsy M) - Rect um, biopsy DIAGNOSIS [facility] Electronically A. DUODENUM, BIOPSY: [facility] signed by Sergey, - DUODENAL MUCOSA WITH PRESERVED VILLOUS ARC HITECTURE AND NO SIGNIFICANT MEDICAL CENTER MD Chani on DIAGNOSTIC ALTERATION. 03/07/2020 at 11:46 - NEGATIVE FOR FEATURES OF CELIAC DISEASE. AM B. STOMACH, BIOPSY: - GASTRIC OXYNTIC AND AN TRAL MUCOSA WITH NO SIGNIFICANT DIAGNOSTIC ALTERATION. - NEGATIVE FOR HELICOBACTER PYLORI ORGANISMS BY WA RTHIN STARRY STAIN. - NEGATIVE FOR INTESTINAL METAPLASIA, DYSPLASIA OR MALIGNANCY. C. STOMACH, POLYP, POLYPECTOMY: - GASTRIC FUNDIC GLAND POLYP. - NEGATIVE FOR HELICOBACTER PYLORI ORGANISMS BY WA RTHIN STARRY STAIN. - NEGATIVE FOR INTESTINAL METAPLASIA, DYSPLASIA OR MALIGNANCY. D. ESOPHAGUS, DISTAL, BIOPSY: - SQUAMOUS EPITHELIUM WITH NO SIGNIFICANT DIAGNOST IC ALTERATION. - NEGATIVE FOR FEATURES SUGGESTIVE OF EOSINOPHILIC ESOPHAGITIS. - NEGATIVE FOR INTESTINAL METAPLASIA/ DYSPLASIA/ M ALIGNANCY. E. ESOPHAGUS, PROXIMAL, BIOPSY: - UNREMARKABLE SQUAMOUS EPITHELIUM. - NEGATIVE FOR FEATURES SUGGESTIVE OF EOSINOPHILIC ESOPHAGITIS. - NEGATIVE FOR INTESTINAL METAPLASIA/ DYSPLASIA/ MA LIGNANCY. F. CECUM, RANDOM, BIOPSY: - COLONIC MUCOSA WITH NO SIGNIFICANT DIAGNOSTIC ALT ERATION. - NEGATIVE FOR DYSPLASIA OR MALIGNANCY. G. TERMINAL ILEUM, BIOPSY: - ILEAL MUCOSA WITH NO SIGNIFICANT DIAGNOSTIC ALTE RATION. - NEGATIVE FOR DYSPLASIA OR MALIGNANCY. H. COLON,RIGHT/ASCENDING, BIOPSY: - COLONIC MUCOSA WITH NO SIGNIFICANT DIAGNOSTIC AL TERATION. - NEGATIVE FOR MICROSCOPIC COLITIS. - NEGATIVE FOR DYSPLASIA OR MALIGNANCY. I. COLON, TRANSVERSE, BIOPSY: - COLONIC MUCOSA WITH NO SIGNIFICANT DIAGNOSTIC AL TERATION. - NEGATIVE FOR MICROSCOPIC COLITIS. - NEGATIVE FOR DYSPLASIA OR MALIGNANCY. J. COLON, LEFT/DESCENDING, BIOPSY: - COLONIC MUCOSA WITH NO SIGNIFICANT DIAGNOSTIC AL TERATION. - NEGATIVE FOR MICROSCOPIC COLITIS. - NEGATIVE FOR DYSPLASIA OR MALIGNANCY. K. COLON, LEFT/DESCENDING, POLYPECTOMY: - SESSILE SERRATED POLYP. L. COLON, RANDOM, BIOPSY: - COLONIC MUCOSA WITH NO SIGNIFICANT DIAGNOSTIC AL TERATION. - NEGATIVE FOR MICROSCOPIC COLITIS. - NEGATIVE FOR DYSPLASIA OR MALIGNANCY. M. RECTUM, BIOPSY: - RECTAL MUCOSA WITH NO SIGNIFICANT DIAGNOSTIC ALT ERATION. - NEGATIVE FOR DYSPLASIA OR MALIGNANCY. Signing Pathologist Direct Phone Line: CPT Code(s) 52743 X 13, 74324 X 2 [facility] CLINICAL HISTORY Screening for viral [facility] disease, ulcerative [facility] proctitis with rectal [facility] bleeding. SPECIMEN SOURCE A. Duodenum [facility] B. Gastric biopsy [facility] C. Gastric polyp [facility] D. Distal esophagus E. Proximal esophagus F. Cecum G. Tympanic membrane biopsy H. Right/ascending colon I. Transverse colon J. Left/descending colon K. Left/descending colon polyp L. Sigmoid colon M. Rectum GROSS DESCRIPTION A. Received in formalin labe led with the patient's name, accession number and "duodenum" are four webster-pink tissue fragments measuring up to 0.3 cm in greatest dimension, which are filtered and submitted in toto in A1. [facility] B. Received in formalin labe led with the patient's name, accession number and "gastric biopsy" are two webster-pink tissue fragments measuring up to 0.3 cm in greatest dimension, which is filtered and submitted in toto in B1. [facility] C. Received in formalin labe led with the patient's name, accession number and "gastric polyp" is a 0.2 x 0.2 x 0.1 cm webster-pink tissue fragment, which is filtered and submitted in toto in C1. D. Received in formalin labe led with the patient's name, accession number and "distal esophagus" are multiple webster-pink tissue fragments measuring up to 0.2 cm in greatest dimension, which are filtered and submitted in toto in D1. E. Received in formalin labe led with the patient's name, accession number and "proximal esophagus" are three webster-pink tissue fragments measuring up to 0.2 cm in greatest dimension, which are filtered and submitted in toto in E1. F. Received in formalin labe led with the patient's name, accession number and "cecum" are three webster-pink tissue fragments measuring up to 0.3 cm in greatest dimension, which are filtered and submitted in toto in F1. G. Received in formalin labe led with the patient's name, accession number and "terminal ileum biopsy" are three webster-pink tissue fragments measuring up to 0.3 cm in greatest dimension, which are filtered and submitted in toto In G1. H. Received in formalin labe led with the patient's name, accession number and "right/ascending colon" are three webster-pink tissue fragments measuring up to 0.3 cm in greatest dimension, which are filtered and submitted in toto in H1. I. Received in formalin labe led with the patient's name, accession number and "transverse colon" are multiple webster-pink tissue fragments measuring up to 0.3 cm in greatest dimension, which are filtered and submitted in toto in I1. J. Received in formalin labe led with the patient's name, accession number and "left/descending colon" are two webster-pink tissue fragments measuring up to 0.3 cm in greatest dimension, which are filtered and submitted in toto in J1. E. Received in formalin labe led with the patient's name, accession number and "descending colon" are multiple webster-pink tissue fragments measuring up to 0.3 cm in greatest dimension, which are filtered and submitted in toto in E1. K. Received in formalin labe led with the patient's name, accession number and "left/descending colon polyp" are three webster-pink tissue fragments measuring up to 0.6 cm in greatest dimension, which are filtered and submitted in toto in K1. L. Received in formalin labe led with the patient's name, accession number and "sigmoid colon" are three webster-pink tissue fragments measuring up to 0.3 cm in greatest dimension, which are filtered and submitted in toto in L1. M. Received in formalin labe led with the patient's name, accession number and "rectum" are three webster-pink tissue fragments measuring up to 0.2 cm in greatest dimension, which are filtered and submitted in toto in M1. PA/ew MICROSCOPIC Performed. [facility] SPECIAL STUDIES The interpretation of this c ase included the use of immunohistochemistry or special stains. [facility] Control Slides Examined: In -house known positive controls were evaluated along with the test tissue. These control slides run alongside of the patients sample show appropriate staining. [facility] luzmaria and negative controls when available are evaluated Immunohistochemistry technic al testing was performed at [facility], Pathology Laboratory where it was developed and its performance characteristics were determined. It has not be en cleared or approved by [facility] U.S. Food and Drug Administration. The FDA has determined that such clearance or approval is not necessary. The test is used for clinical purposes. It should not be regarde d as investigational or for research. This laboratory is certified under the Clinical Laboratory Improvement Amendments of 1988 (CLIA-88) as qualified to perform high complexity clinical laboratory testing. Gross assessment [facility] was performed at [facility] Pathology, [address] [place] [id number], Technical [facility] component was [facility] performed at Pathology, [address] [place] [address], [place] [address], Professional [facility] component was [facility] performed at Pathology, [address] [place] [id number], Specimen Tissue - Duodenal structure (body struct ure) Tissue specimen (specimen) - Gastric bio psy sample (specimen) Tissue specimen (specimen) - Polyp, Macie gonzalez Tissue specimen (specimen) - Distal Esop hagus Tissue specimen (specimen) - Proximal Es ophagus Tissue specimen (specimen) - Cecum struc ture (body structure) Tissue specimen (specimen) - Biopsy, [place] Ileum Tissue specimen (specimen) - Ascending c olon structure (body structure) Tissue specimen (specimen) - Transverse colon structure (body structure) Tissue specimen (specimen) - Descending colon structure (body structure) Tissue specimen (specimen) - Polyp, [place] n - Left/Descending Tissue specimen (specimen) - Sigmoid col on structure (body structure) Tissue specimen (specimen) - Rectum stru cture (body structure) Performing Organization Address City/State/Zipcode Phone Number [facility] [address] [place] [address] CENTER POCT , urine (03/03/2020 7:27 AM CDT) Pathologist Sig nature Test Urine, POC Negative Control line present?, POC Yes Background clear?, POC Yes UPT Cassette Lot #, POC [id number] UPT Cassette Expiration Date, 04-23-2021 POC Specimen Urine after 05/29/2019 Insurance Payer Benefit Plan / Subscriber ID Effective Phone Address T ype Group Dates MEDICAID - MEDICAID [facility] [id number] 2019-Norma espinal MEDICAID MGD STAR nt [facility]
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
--- OUTSIDE RECORDS SUMMARY | 2020-05-29 16:49 | XMS REPORT | Summary of Care ---
:1980 Author Organization [facility] Address [address] [place] [id number] Care Team Providers Name Role Phone Oneyda Primary Care Provider Reason for Visit Reason Comments New Patient Encounter Details Date Type Department Care Team Description 03/10/2020 Office Visit [facility] Vaishnavi Ellis MD [address] [place] [address] Folliculitis (Primary Dx); Dermatology, Elva Leonard MD [address] [place] [address]. 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 Elva Son MD PGY-4 [facility] Dermatology 03/10/2020, 1:48 PM documented [...] Effective Dates Phone Addre ss Type Group [place] [facility] [place] [facility] [id number] 2019-Present Medicaid HEALTH PLAN - HEALTH MANAGED MEDICAID Guarantor Name Account Type Relation to Date of Phone Billing Patient Address Emilia Lora Personal/Family Self 1980 [address]) [address] [place] [address] documented as of this encounter
--- OUTSIDE RECORDS SUMMARY | 2020-05-29 16:49 | XMS REPORT | Summary of Care ---
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 Attention deficit disorder 12/15/2012 Overview: ICD10 Diagnosis Term 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 Abnormal weight gain 05/14/2011 Overview: Last Assessment & Plan: Labs reviewed and appears normal. Felisha wed with her. I have counseled the [...] Signs Not on filedocumented in this encounter Plan of Treatment Date Type Specialty Care Team Description 03/10/2020 Office Visit Dermatology Vaishnavi Ellis MD [address] [place] [address] [place] [address] Elva Son MD [address] [place] [address]. [place] [address] Health Maintenance Due Date Last Done Comments PNEUMOCOCCAL 0-64 YEARS COMBINED SERIES (1 1986 of 1 - PPSV23) Depression Screening 1992 DTaP,Tdap,and Td Vaccines (1 - Tdap) 1999 10/16/2011 PAP SMEAR 12/17/2015 12/16/2012, 04/25/2009 INFLUENZA VACCINE (#1) 2020 04/17/2016, 04/13/2015 documented as of this encounter Procedures Procedure Name Priority Date/Time Associated Diagnosis Comme nts ASSIGNMENT OF BENEFITS Routine 03/10/2020 1:05 PM CDT documented in this encounter Results Not on filedocumented in this encounter Insurance Payer Benefit Plan / Subscriber ID Effective Phone Address T ype Group Dates [facility] [id number] 2014- [phone] [place] [address] [facility] [id number] 2019-Norma Kevin [facility] HEALTH PLAN - MANAGED MEDICAID documented as of this encounter
--- OUTSIDE RECORDS SUMMARY | 2020-05-29 16:50 | XMS REPORT | Summary of Care ---
:1980 Author Name DOTTY Garcia Address Unavailable Unavailable , Care Team Providers Name Role Phone JITENDRA Garcia Unavailable Unavailable HARLEY Garcia Unavailable Unavailable ABEL Garcia Unavailable Unavailable STU Garcia Unavailable Unavailable JAZLYN PRISON OFFICER Unavailable Unavailable DOTTY Garcia Unavailable Unavailable VIGNESH YEEN Unavailable Unavailable KAY PRISON OFFICER Unavailable Unavailable VANESA N.P. Unavailable Unavailable EVANGLEIST SANDOVAL Unavailable Unavailable JZALYN STEWARD Unavailable Unavailable JAZLYN SANDOVAL Unavailable Unavailable HARLEY SANDOVAL UT Unavailable Unavailable Abel SANDOVAL Unavailable Unavailable NEERAJ SANDOVAL Unavailable Unavailable Elizabet SANDOVAL Unavailable Unavailable KANE SANDOVAL Unavailable Unavailable LANDY SANDOVAL Unavailable Unavailable Corwin SANDOVAL Unavailable Unavailable JAZLYN SANDOVAL UT Unavailable Unavailable JITENDRA SANDOVAL Unavailable Unavailable Rai SANDOVAL Unavailable Unavailable DOTTY SANDOVAL Unavailable Unavailable STU SANDOVAL Unavailable Unavailable PERSAUD DO Unavailable Unavailable Unavailable Unavailable Unavailable Functional Status [...] therapy (V58.83, Z51.81) Status: Active Encounter for jail current azathioprine therapy (V58.69 , Z79.899) Status: [...] Lumbar pain (724.2, M54.5) Status: Activ e Anxiety (300.00, F41.9) Status: Active Other synovitis [...] initial encounter (8 45.19, S93.612A) Status: Active Sprain of calcaneofibular ligament of le ft ankle, subsequent encounter (V58.89, S93.412D) Status: Active Deep peroneal neuropathy, 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 Start : [...] HOURS NEEDED Quantity: 1 Refills: 5 ABEL Garcia CASTILLO Start : 02-Feb-2019 Active 6.7 GM Inhaler CPAP Continuous Positive Airway Pressure Please provide patient with all necessary CPAP supplies including mask (please fit), tubing, filters, etc. Good for ONE YEAR Quantity: 1 Refills: 0 ABEL Garcia CASTILLO Start : 09-Mar-2019 Active Fluticasone-Salmeterol 500-50 MCG/DOSE Inhalation Aerosol Powder Breath Activated INHALE ONE PUFF BY MOUTH TWICE A DAY Quantity: 1 Refills: 3 ABEL Garcia CASTILLO Start : 08-Apr-2019 Active 60 [...] N.P., YANELI Start : 01-Jan-2020 Active lamoTRIgine 100 MG Oral Tablet TAKE 1 TABLET BEDTIME Quantity: 90 Refills: 1 RAOMS STORM M.D.JESIKADerick Start : 27-Jan-2020 Active Allergies and Adverse [...] of peptic ulcer (V12.71, Z87.11) Status: Resolved History of Sprain of calcaneofibular lig ament of left ankle, subsequent encounter (V58.89, S93.412D) Status: Resolved Procedures Procedure Dates Details History [...] Planned Encounters Appointment; BRANDT BILL M.D. On: 22-Mar-2020 11 :00 Appointment; ALANA HAM M.D. On: 28-Mar-2020 14:30 Appointment; HECTOR STORM M.D. On: 09-Jun-2020 12:00 Appointment; HECTOR STORM M.D. On: 20-Jun-2020 14:00 Interventions Provided Medication ChangeslamoTRIgine 100 MG Oral Tablet - RenewPropranolol HCl - 20 MG Oral Tablet - RenewtraZODone HCl - 100 MG Oral Tablet - RenewPlanPTSD. anxiety and depression. Bipolar faimily hx and related symptoms.-- Increase lamotrigine 50mg daily 2 wks -->100mg daily.-- continue propranolol 20mg bid prn. for anxiety Panic attacks.-- continue trazodone 100mg bedtime for sleep.-- Medication risks benefits side effects (SJS syn need ER care) alternatives discussed.-- Safety plan discussed, encouraged to call suicidal hotline, call 911, or go to the nearest the ERif feeling activity suicidal.-- referral psychotherapy.RTC 3 m.Discussion/SummaryProgress made toward Goal moderate progress. Additional [...] 27-Jan-2020 15:30 Encounter Diagnosis: Problem not documented Appointment; BRANDT BILL M.D. On: 09-Feb-2020 11 :00 Encounter Diagnosis: Problem not documented Appointment; HECTOR STORM M.D. On: 17-Mar-2020 12:00 Encounter Diagnosis: Problem not documented
--- OUTSIDE RECORDS SUMMARY | 2020-05-29 16:50 | XMS REPORT | Summary of Care ---
:1980 Author Name DOTTY Garcia Address Unavailable Unavailable , Care Team Providers Name Role Phone JITENDRA Garcia Unavailable Unavailable HARLEY Garcia Unavailable Unavailable ABEL Garcia Unavailable Unavailable STU Garcia Unavailable Unavailable JAZLYN TERMITE INSPECTOR Unavailable Unavailable DOTTY Garcia Unavailable Unavailable VIGNESH YEEN Unavailable Unavailable KAY TERMITE INSPECTOR Unavailable Unavailable VANESA N.P. Unavailable Unavailable EVANGELIST SANDOVAL Unavailable Unavailable JAZLYN STEWARD Unavailable Unavailable JAZLYN [...] ALANA AHM M.D. Start : 29-Dec-2018 Active 07/13 1-20 [...] 1 TABLET BEDTIME Quantity: 90 Refills: 1 RAMOS STORM M.D.JESIKADerick Start : 27-Jan-2020 Active Allergies [...] and related symptoms.-- Increase lamotrigine 50mg daily -->100mg daily. for bipolar.-- continue propranolol 20mg bid prn. for anxiety [...]
--- OUTSIDE RECORDS SUMMARY | 2020-05-29 16:53 | XMS REPORT | Summary of Care ---
:1980 Author Organization [facility] [place] [address] Care Team Providers Name Role Phone MD Ellyn Primary Care Provider Reason for Visit Reason Comments Follow Up Encounter Details Date Type Department Care Team Description 05/12/2020 Office Visit [facility], Steve Lugo Follow Up Medicine Allergy [address] [place] [address] [place] [address] [place] [address] [phone] Allergies Active Allergy Reactions Severity Noted Date Comments Adhesive Tape Blister 05/23/2010 Cephalosporins 05/12/2020 Ciprofloxacin 05/12/2020 Duloxetine Hcl 05/14/2011 Serotonin syn drome Keflex Itching 05/23/2010 Levaquin Palpitations High 06/11/2011 Metformin Hcl 05/23/2010 Lactic acidosi s Nsaids Swelling 05/23/2010 Face and tongue Celebrex Sulfa Antibiotics 05/12/2020 documented as of this encounter (statuses as of 05/17/2020) Medications Medication Sig Dispensed Refills Start Date End Date Status albuterol HFA Inhale 1-2 1 Inhaler 0 08/24/2011 Acti ve (PROVENTIL HFA, Puffs by VENTOLIN HFA) 108 mouth every (90 BASE) MCG/ACT 6 hours as inhalerIndications: needed for RAD (reactive Wheezing. airway disease) trazodone (DESYREL) Take 100 mg 0 Active 100 MG tablet by mouth nightly. hydrOXYzine Take 1 Tab 30 Tab 0 11/24/2012 Active (ATARAX) 25 MG by mouth 3 tablet times daily as needed for Itching. fluticasone-salmete Inhale 1 1 Each 12 01/28/2020 Active rol (ADVAIR DISKUS) Puff by 500-50 MCG/DOSE mouth two inhalerIndications: times daily. Mild intermittent asthma, unspecified whether complicated Apixaban (ELIQUIS) Take 5 mg by 60 Tab 1 04/11/2020 Active 5 MG mouth two TABSIndications: times daily. Acute pulmonary embolism, unspecified pulmonary embolism type, unspecified whether acute cor pulmonale present (HCCode) pantoprazole Take 1 Tab 60 Tab 5 04/26/2020 Activ e (PROTONIX) 40 MG by mouth tablet daily. 1 tablet by mouth every day lamotrigine Take 100 mg 0 Active (LAMICTAL) 25 MG by mouth. tablet fluticasone 2 Sprays by 16 g 5 05/12/2020 Activ e (FLONASE) 50 Each Nostril MCG/ACT nasal spray route two times daily. Norethin-Eth Take by 0 Discont inued Estrad-Fe Biphas mouth. 0 (*T herapy (LO LOESTRIN FE) 1 c ompleted) MG-10 MCG / 10 MCG TABS ELIQUIS DVT/PE 0 12/24/2019 Disc ontinued STARTER PACK 5 MG 0 (* Therapy TABS completed) Na Sulfate-K [SUPREP] 1 Bottle 0 01/27/2020 Discon tinued Sulfate-Mg Sulf Take as 0 (*Th erapy (SUPREP BOWEL PREP directed. c ompleted) KIT) 17.5-3.13-1.6 GM/177ML SOLN methocarbamol Take 750 mg 0 08/20/2019 Dis continued (ROBAXIN) 750 MG by mouth 0 (*T herapy tablet four times completed ) daily. documented as of this encounter (statuses as of 05/17/2020) Active Problems Patient Care Coordination Note [email or web address] Problem Noted Date Acute pulmonary embolism (HCCode) 02/02/2020 Sprain of metacarpophalangeal joint of thumb 3 Blepharitis of both eyes 04/04/2012 Keratitis secondary to contact lens 02/29/2012 High myopia, both eyes 02/29/2012 Routine medical exam 06/13/2011 Last Assessment & Plan: Stable exam except as above. Abnormal weight gain 05/14/2011 Last Assessment & Plan: Labs reviewed and appears normal. Reviewed with her. I have counseled the patient at length to modify lifestyle. Irregular menstrual cycle 05/14/2011 Other malaise and fatigue 05/14/2011 Hirsutism 05/14/2011 Headache(784.0) 06/01/2010 Last Assessment & Plan: Stable, suspect migraine type Frequent UTI 06/01/2010 Depression 06/01/2010 Last Assessment & Plan: Stable but contributing to fatigue Anxiety 06/01/2010 documented as of this encounter (statuses as of 05/17/2020) Immunizations Name Administration Dates Next Due Hep A/Hep B 07/17/2012, 02/15/2012, 12/31/2011 Influenza (whole) 04/13/2015 Influenza Quad-PF 05/12/2020 PPD Test 12/28/2011 12/31/2011 Pneumococcal Conjugate 04/13/2015 Tdap 10/02/2015, 01/14/2015, 12/31/2011 documented as of this encounter Social History Tobacco Use Types Packs/Day Years Used Date Never Smoker Smokeless Tobacco: Never Used Alcohol Use Drinks/Week oz/Week Comments Yes occ Sex Assigned at Date Recorded Not on file COVID-19 Exposure Response Date Recorded In the last month, have you been in contact with No / Unsure 05/10/2020 5:00 PM [employer] someone who was confirmed or suspected to have Coronavirus / COVID-19? documented as of this encounter Last Filed Vital Signs Vital Sign Reading Time Taken Comments Blood Pressure 129/83 05/12/2020 12:10 PM [employer] Pulse 92 05/12/2020 12:10 PM [employer] Temperature 36.5 C (97.7 F) 05/12/2020 12:06 PM [employer] Respiratory Rate - - Oxygen Saturation - - Inhaled Oxygen Concentration - - Weight - - Height - - Body Mass Index - - documented in this encounter Patient Instructions Patient InstructionsSuParish schultz MD - 05/12/2020 11:30 AM CSTPlease use flonase 1-2 sprays each nostril sprays outward 1-2 times a day. Consider allergen immunotherapy Consider patch testing for contact dermatitis to tapes and bra, sometime hook of bra TRON[employer] SCALE TESTER documented in this encounter Progress Notes Parish Fam MD - 05/12/2020 11:30 AM CST Chief complaint Chief Complaint Patient presents with Follow Up History of Present Illness Emilia is a 39 y.o. female Symptoms of postnasal drip and rhinorrhea and sneezing are worse. After eating has to hack up mucus. Also has a history of strong reaction to antibiotics- severe diarrhea: amoxycillin, augmenting tetracyclin cause diarhea. cephalosporin tongue swelling an blisters. levaquin tachycardia and mind problems For asthma is taking Advair. Rhinitis and Urticaria: She has >30 years sinusitis s/p multiple sinus surgeries but continues to have "excessive mucous production" with postnasal drip, rhinorrhea, sneezing. She has >20 years whole body itching worse on scalp and arms, occasional hives, no nose itching. Symptoms are year round no seasonality. She has tried benadryl and hydroxyzine with some improvement they made her sleepy. Has tried phenylephrine but caused tachycardia. No significant change with Flonase. Currently, she takes cetirizine daily She has had prior dermatitis with possible triggers of clothing. Asthma: she has cough, wheezing, worse with viral infections. Currently well controlled with Advair 500-50 BID Food allergy: none Drug allergy: Celebrex caused swelling of face and tongue no anaphylaxis, rash. Levaquin caused palpitations. Keflex caused itching. Adhesive tape caused blisters that "looked like a burn victim" She lives in [place] Current Medications Current Outpatient Medications Medication Sig Dispense Refill albuterol HFA (PROVENTIL HFA, VENTOLIN HFA) 108 (90 BASE) MCG/ACT inhaler Inhale 1-2 Puffs by mouth every 6 hours as needed for Wheezing. 1 Inhaler 0 Apixaban (ELIQUIS) 5 MG TABS Take 5 mg by mouth two times daily. 60 Tab 1 ELIQUIS DVT/PE STARTER PACK 5 MG TABS fluticasone-salmeterol (ADVAIR DISKUS) 500-50 MCG/DOSE inhaler Inhale 1 Puff by mouth two times daily. 1 Each 12 hydrOXYzine (ATARAX) 25 MG tablet Take 1 Tab by mouth 3 times daily as needed for Itching. 30 Tab 0 methocarbamol (ROBAXIN) 750 MG tablet Take 750 mg by mouth four times daily. Na Sulfate-K Sulfate-Mg Sulf (SUPREP BOWEL PREP KIT) 17.5-3.13-1.6 GM/177ML SOLN [SUPREP] Take as directed. 1 Bottle 0 Norethin-Eth Estrad-Fe Biphas (LO LOESTRIN FE) 1 MG-10 MCG / 10 MCG TABS Take by mouth. pantoprazole (PROTONIX) 40 MG tablet Take 1 Tab by mouth daily. 1 tablet by mouth every day 60 Tab 5 trazodone (DESYREL) 100 MG tablet Take 100 mg by mouth nightly. No current facility-administered medications for this visit. Medications reviewed during this visit? yes Allergies Allergies Allergen Reactions Levaquin Palpitations Adhesive Tape Blister Cymbalta [Duloxetine Hcl] Serotonin syndrome Keflex Itching Metformin Hcl Lactic acidosis Nsaids Swelling Face and tongue Allergy History Environmental and Social History: Type of home: apartment Type of heating and cooling: Central Air Where carpeted: bedroom Pets: dog (6 years) and cat (1 years) Allergy proof bedding covers: No Pillows:bamboo Rooms damp or smell musty: No Visible mold growth: Yes Cockroaches: Yes occasionally Smokers: No Family History Family History Problem Relation Name Age of Onset Blood Clots Mother Headaches Mother Hypothyroidism Mother Alcoholism Father Alcoholism Sister Anxiety Sister Asthma Sister Diabetes Sister Hypertension Sister Anxiety Brother Diabetes Brother Cancer Maternal Grandmother Anemia Maternal Grandmother Anxiety Maternal Grandmother Hypothyroidism Maternal Grandmother Diabetes Maternal Grandfather Signs of heart disease before age 55 in a man Maternal Grandfather Hypertension Maternal Grandfather Medical History Past Medical History: Diagnosis Date Allergy Asthma Calculus of kidney Complication of anesthesia Depression Endometriosis Fibromyalgia Headache(784.0) Hypertension Inflammatory polyarthritis (HCCode) Kidney infection Recurrent UTI Type II or unspecified type diabetes mellitus without mention of complication, not stated as uncontrolled Ulcerative colitis (HCCode) Past Surgical History: Procedure Laterality Date HX ADENOIDECTOMY HX D&C endometrial surgery HX GALLBLADDER REMOVAL HX KIDNEY REMOVAL Social History reports that she has never smoked. She has never used smokeless tobacco. She reports current alcohol use. She reports that she does not use drugs. Review of Systems General: denies fever, fatigue, weight gain or loss. 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 Skin: As per HPI Heme/Lymphatic/Immuno: Denies easy bruising or bleeding. +recurrent bronchitis <1x/year, UTI every 2 months. Problems Patient Active Problem List Diagnosis Headache(784.0) Frequent UTI Depression Anxiety Abnormal weight gain Irregular menstrual cycle Other malaise and fatigue Hirsutism Routine medical exam Keratitis secondary to contact lens High myopia, both eyes Blepharitis of both eyes Sprain of metacarpophalangeal joint of thumb Acute pulmonary embolism (HCCode) Immunizations Immunizations reviewed during this visit? yes Up to date? yes Confirmed? no Immunization History Administered Date(s) Administered Hep A/Hep B 12/31/2011, 02/15/2012, 07/17/2012 Influenza (whole) 04/13/2015 PPD Test 12/28/2011 Pneumococcal Conjugate 04/13/2015 Tdap 12/31/2011, 01/14/2015, 10/02/2015 Vital Signs There were no vitals filed for this visit. Physical Examination PHYSICAL EXAM VITALS: Vital Signs Temp: 97.7 F (36.5 C) Temp Source: Tympanic Pulse: 92 BP: 129/83 Patient Position: Sitting BP Location: right wrist Oxygen Therapy O2 Sat: 95 % O2 Flow Rate: Room Air Physical Examination: General appearance - alert, well appearing, and in no distress and oriented toperson, place, and time General: well developed/well nourished Head: normocephalic, atraumatic Eyes: conjunctiva appear normal Ears: bilateral TM's and external ear canals normal Nose: normal and patent, no erythema, discharge or polyps Oropharynx: mucous membranes moist, pharynx normal without lesions Neck: supple, no bruit, no lymphadenopathy or thyromegaly Cardiovascular: peripheral pulses palpable and normal Lungs: clear to auscultation, no wheezes or rales and unlabored breathing Abdomen: soft, nontender, nondistended, no masses or organomegaly Lymphatic: non-palpable nodes in neck, clavicular, axillary or inguinal regions Extremities: peripheral pulses normal, no pedal edema, no clubbing or cyanosis Skin: normal, no cyanosis, jaundice, pallor or bruising Psychiatric: alert, oriented, with appropriate affect Assessment and Plan Impression: Emilia Lora is a 39 y.o. female with the following diagnoses: She will need skin testing for environmental allergies as well as patch testing for contact dermatitis. Will also evaluate for mast cell disorder and vasculitis. Advised that she will need to be off all antihistamines for 7 days prior to her follow-up visit - TRYPTASE - C3 COMPLEMENT - C4 COMPLEMENT - TSH - CBC W/AUTO DIFF WITH PLATELETS - COMPREHENSIVE METABOLIC PANEL Emilia Lora was given the opportunity to ask questions which were answered to satisfaction. Emilia voiced understanding and agreed with the plan. Discussed with Dr. Fam Current Medications After Changes: Outpatient Encounter Medications as of 05/12/2020 Medication Sig Dispense Refill albuterol HFA (PROVENTIL HFA, VENTOLIN HFA) 108 (90 BASE) MCG/ACT inhaler Inhale 1-2 Puffs by mouth every 6 hours as needed for Wheezing. 1 Inhaler 0 Apixaban (ELIQUIS) 5 MG TABS Take 5 mg by mouth two times daily. 60 Tab 1 ELIQUIS DVT/PE STARTER PACK 5 MG TABS fluticasone-salmeterol (ADVAIR DISKUS) 500-50 MCG/DOSE inhaler Inhale 1 Puff by mouth two times daily. 1 Each 12 hydrOXYzine (ATARAX) 25 MG tablet Take 1 Tab by mouth 3 times daily as needed for Itching. 30 Tab 0 methocarbamol (ROBAXIN) 750 MG tablet Take 750 mg by mouth four times daily. Na Sulfate-K Sulfate-Mg Sulf (SUPREP BOWEL PREP KIT) 17.5-3.13-1.6 GM/177ML SOLN [SUPREP] Take as directed. 1 Bottle 0 Norethin-Eth Estrad-Fe Biphas (LO LOESTRIN FE) 1 MG-10 MCG / 10 MCG TABS Take by mouth. pantoprazole (PROTONIX) 40 MG tablet Take 1 Tab by mouth daily. 1 tablet by mouth every day 60 Tab 5 trazodone (DESYREL) 100 MG tablet Take 100 mg by mouth nightly. No facility-administered encounter medications on file as of 05/12/2020. Disposition Consent Yes Time Antigens Placed Location Back Allergen Data Processing Clerk [facility] Nurse Shantell Garcia RN Reviewing Physician Parish Fam RN Select Antigens Molds Alternaria Alternata - W/F in mm 0 Aspergillus Fumigatus - W/F in mm 0 Botrytis Cinerea - W/F in mm 0 Audrey - W/F in mm 0 Cephalosporium - W/F in mm 0 Curvularia/Drechsleria- W/F in mm 0 Epicoccum - W/F in mm 4 Fusarium Mix - W/F in mm 4 Bipoloaris/Helminthosporium - W/F in mm 4 Hormodendrum - W/F in mm 0 Mucor Mix - W/F in mm 0 Penicillium Mix - W/F in mm 0 Phoma - W/F in mm 0 Pullularia - W/F in mm 0 Rhizopus Mix - W/F in mm 3 Stemphyllium Solani - W/F in mm 0 Weeds Careless/Pigweed - W/F in mm 3 Cocklebur - W/F in mm 0 Dock/[place] - W/F in mm 3 Palestinian Plantain - W/F in mm 0 Kochia - W/F in mm 0 Marshelder - W/F in mm 0 Mugwort/Sagebrush - W/F in mm 0 Nettle - W/F in mm 0 Ragweed - W/F in mm 0 Ugandan Thistle - W/F in mm 0 Wingscale - W/F in mm 0 Grasses [place] - W/F in mm 0 Bermuda - W/F in mm 4 José Miguel - W/F in mm 0 Perennial [place] - W/F in mm 3 Matt - W/F in mm 0 Trees Vietnamese Elm - W/F in mm 0 Birch mix- W/F in mm 0 [place] - W/F in mm 0 Boxelder/Maple - W/F in mm 3 [place]aufman Eastern - W/F in mm 3 [place] - W/F in mm 0 [place] - W/F in mm 3 Mountain [place] - W/F in mm 3 [place] - W/F in mm 0 Wallagrass - W/F in mm 0 Pecan - W/F in mm 0 Whiteside - W/F in mm 3 Sweet Gum - W/F in mm 0 White [place] - W/F in mm 0 Environmental AP Cat Hair - W/F in mm 0 AP Dog Hair - W/F in mm 0 Cockroach- W/F in mm 0 DF Mite - W/F in mm 0 DP Mite - W/F in mm 0 Feather Mix- W/F in mm 0 Controls Negative 50% Glycerine-Saline - W/F in mm 0 Positive Histamine 1mg/ml - W/F in mm 10/11, 10/11 ICD-10-CM 1. Non-seasonal allergic rhinitis, unspecified trigger J30.89 2. Contact dermatitis due to adhesives, unspecified contact dermatitis type L23.1 3. Chronic idiopathic urticaria L50.1 Please use flonase 1-2 sprays each nostril sprays outward 1-2 times a day. Consider allergen immunotherapy Consider patch testing for contact dermatitis to tapes and bra, sometime hook of bra - C3 COMPLEMENT - C4 COMPLEMENT - CBC W/AUTO DIFF WITH PLATELETS - COMPREHENSIVE METABOLIC PANEL - TRYPTASE - TSH TRONICS SCALE TESTER documented in this encounter Plan of Treatment Date Type Specialty Care Team Description 06/08/2020 Office Visit Hematology and Oncology Jason Campbell MD [address], [address] [place], [place] [address] [phone] Name Type Priority Associated Diagnoses Order S chedule C3 COMPLEMENT Lab Routine Chronic idiopathic Ordered: 05/12/2020 urticaria C4 COMPLEMENT Lab Routine Chronic idiopathic Ordered: 05/12/2020 urticaria CBC W/AUTO DIFF WITH Lab Routine Chronic idiopathic O rdered: 05/12/2020 PLATELETS urticaria COMPREHENSIVE METABOLIC Lab Routine Chronic idiopathi c Ordered: 05/12/2020 PANEL urticaria TRYPTASE Lab Routine Chronic idiopathic Ordered: 05/12/2020 urticaria TSH Lab Routine Chronic idiopathic Ordered: 05/12/2020 urticaria Health Maintenance Due Date Last Done Comments BMI FOLLOW UP PLAN 1998 HEPATITIS C SCREENING 1998 HIV SCREENING 1998 CERVICAL CANCER SCREENING 2001 3 YEAR FOLLOW UP COLON CANCER SCREENIN03/03/2021 03/03/2020 COLONOSCOPY TETANUS SHOT (ADULT) 10/01/2025 10/02/2015, 01/14/2015, 12/31/2011, Additional history exists FLU VACCINE > 6 MONTHS Completed 05/12/2020, 04/13/2015 HPV VACCINE Aged Out No longer eligib le based on patient 's age to complete this topic documented as of this encounter Results Not on filedocumented in this encounter Visit Diagnoses Diagnosis Non-seasonal allergic rhinitis, unspecif ied trigger - Primary Contact dermatitis due to adhesives, uns pecified contact dermatitis type Chronic idiopathic urticaria Idiopathic urticaria documented in this encounter Insurance Payer Benefit Plan / Subscriber ID Effective Dates Phone Addre ss Type Group [facility] [id number] 2020-Present [address] Medicaid [facility] [place] [place] HEALTH PLAN HEALTH PLAN [id number] documented as of this encounter Advance Directives For more information, please contact: [phone] Type Date Recorded Patient Anesthesia Resident Explanati on Advance Directives and Living Will Power of [place] Administrator
--- OUTSIDE RECORDS SUMMARY | 2020-05-29 16:53 | XMS REPORT | Summary of Care ---
:1980 Author Organization [facility] [place] [address] Care Team Providers Name Role Phone MD Ellyn Primary Care Provider Reason for Referral (Routine) Status Reason Specialty Diagnoses / Referred By Referred To Procedures Contact Contact Pending Consult, Physical Therapy Diagnoses Hypermobility arthralgia Low back pain, unspecified back pain laterality, unspecified chronicity, unspecified whether sciatica present Fidel Blanc and MD Tucker Treat [address] [place] [address] [place] [id number] Consult, Test & Treat (Routine) Status Reason Specialty Diagnoses / Referred By Referred To Procedures Contact Contact Pending Consult, Test, Genetics Diagnoses Hypermobility arthralgia Fidel Blanc Genetics and Treat Procedures [place] OFFICE OUTPATIENT NEW 30 MINUTES MD Tucker [address] [place] [address] 9th Floor, [address] [place], [place] [address] [place], [place] Phone: [phone] Phone: Fax: Radiology Services (Routine) Status Reason Specialty Diagnoses / Procedures Referred By C ontact Referred To Contact Pending Radiology Diagnoses Low back pain, unspecified back pain laterality, unspecified chronicity, unspecified whether sciatica present Fidel Blanc, Jay Mr Imaging Procedures MRI SACRUM WO CONTRAST [address] [facility] [address] [place], [place] [address] [address] [place], [place] [address] Phone: Phone: Fax: Reason for Visit Reason Comments Initial Consultation Consult, Test & Treat (Routine) Status Reason Specialty Diagnoses / Referred By Referred To Procedures Contact Contact Authorization Not Consult, Rheumatology Diagnoses Enteropathic arthritis Hypermobility arthralgia M07.60 (ICD-10-CM) - Enteropathic arthritis M25.50 (ICD-10-CM) - Hypermobility arthralgia M07.60 (ICD-10-CM) - Enteropathic arthritis M25.50 (ICD-10-CM) - Hypermobility arthralgia [place], [place] Needed Test, and M07.60 (ICD-10-C M) - Enteropathic arthritis M25.50 (ICD-10-CM) - Hypermobility arthralgia M07.60 (ICD-10-CM) - Enteropathic arthritis M25.50 (ICD-10-CM) - Hypermobility arthralgia M07.60 (ICD-10-CM) - Enteropathic arthritis DO [facility] Treat M25.50 (ICD-10-CM) - Hypermobility a rthralgia [address] [place], [place] [address] Procedures [place] OFFICE OUTPATIENT BANNER 30 MINUTES [facility] [address] [place] [address] [address] [address] [place], [place] Phone: [phone] Phone: Encounter Details Date Type Department Care Team Description 05/12/2020 Office Visit [facility] Fidel Blanc Init ial Consultation Medicine Rheumatolog y [address] [facility] [address] [facility], [address] [place], [place] [address] [id number] [place] [address] Allergies Active Allergy Reactions Severity Noted Date Comments Adhesive Tape Blister 05/23/2010 Cephalosporins 05/12/2020 Ciprofloxacin 05/12/2020 Duloxetine Hcl 05/14/2011 Serotonin syn drome Keflex Itching 05/23/2010 Levaquin Palpitations High 06/11/2011 Metformin Hcl 05/23/2010 Lactic acidosi s Nsaids Swelling 05/23/2010 Face and tongue Celebrex Sulfa Antibiotics 05/12/2020 documented as of this encounter (statuses as of 05/12/2020) Medications Medication Sig Dispensed Refills Start Date End Date Status albuterol HFA Inhale 1-2 1 Inhaler 0 08/24/2011 Acti ve (PROVENTIL HFA, Puffs by VENTOLIN HFA) 108 mouth every (90 BASE) MCG/ACT 6 hours as inhalerIndications needed for : RAD (reactive Wheezing. airway disease) trazodone Take 100 mg 0 Active (DESYREL) 100 MG by mouth tablet nightly. hydrOXYzine Take 1 Tab 30 Tab 0 11/24/2012 Active (ATARAX) 25 MG by mouth 3 tablet times daily as needed for Itching. fluticasone-salmet Inhale 1 1 Each 12 01/28/2020 Active zheng (ADVAIR Puff by DISKUS) 500-50 mouth two MCG/DOSE times daily. inhalerIndications : Mild intermittent asthma, unspecified whether complicated Apixaban [...] e (FLONASE) 50 Each Nostril MCG/ACT nasal route two spray times daily. gabapentin Take 1 180 capsule 2 05/12/2020 Active (NEURONTIN) 300 MG capsule by capsule mouth 3 times daily. Norethin-Eth Take by 0 Discont inued Estrad-Fe Biphas mouth. 0 (*T herapy (LO LOESTRIN FE) 1 c ompleted) MG-10 MCG / 10 MCG TABS Na Sulfate-K [SUPREP] 1 Bottle 0 01/27/2020 Discon tinued Sulfate-Mg Sulf Take as 0 (*Th erapy (SUPREP BOWEL PREP directed. c ompleted) KIT) 17.5-3.13-1.6 GM/177ML SOLN methocarbamol Take 750 mg 0 08/20/2019 Dis continued (ROBAXIN) 750 MG by mouth 0 (*T herapy tablet four times completed ) daily. documented as of this encounter (statuses as of 05/12/2020) Active Problems Patient Care Coordination Note [email or web address] Problem Noted Date Acute pulmonary embolism (HCCode) [...] as of this encounter (statuses as of 05/12/2020) Immunizations Name Administration Dates Next Due Hep [...] with No / Unsure 05/10/2020 5:00 PM PRODUCT SUPPORT CONSULTANT someone who was confirmed or suspected to have Coronavirus / COVID-19? documented as of this encounter Last Filed Vital Signs Vital Sign Reading Time Taken Comments Blood Pressure 135/88 05/12/2020 1:43 PM PRODUCT SUPPORT CONSULTANT Pulse 87 05/12/2020 1:43 PM PRODUCT SUPPORT CONSULTANT Temperature 36.5 C (97.7 F) 05/12/2020 1:43 PM PRODUCT SUPPORT CONSULTANT Respiratory Rate 16 05/12/2020 1:43 PM PRODUCT SUPPORT CONSULTANT Oxygen Saturation 95% 05/12/2020 1:43 PM PRODUCT SUPPORT CONSULTANT Inhaled Oxygen Concentration - - Weight 149.7 kg (330 lb) 05/12/2020 1:43 PM PRODUCT SUPPORT CONSULTANT Height 170.2 cm (5' 7") 05/12/2020 1:43 PM PRODUCT SUPPORT CONSULTANT Body Mass Index 51.69 05/12/2020 1:43 PM PRODUCT SUPPORT CONSULTANT documented in this encounter Patient Instructions Patient InstructionsWFidel wilson MD - 05/12/2020 2:45 PM CSTLets see what is going on in your back with the MRI and blood work. We will try gabapentin 300 mg three time a day. You can call to schedule with genetics for EDS evaluation. Find a PT location to help with your shoulder, hip, and back pain. UCT SUPPORT CONSULTANT documented in this encounter Progress Notes Fidel Blanc MD - 05/12/2020 2:45 PM CST RHEUMATOLOGY CLINIC HISTORY OF PRESENT ILLNESS: Emilia Lora is a 39 y.o. 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 She is referred by her PCP Dr. Price. November 2019 leg cramp found to have popliteal DVT and PE on Eliquis, prior had ankle surgery. Off hormone therapy for PCOS since clot diagnosis. Seen by hematology, no APLS workup. She has had three 1st trimester pregnacy losses Nephrectomy due to reflux, atrophy, and chronic UTI UC diagnosed in 2016 Prior medications prednisone, sulfasalalzine, imuran, britney Betrrand worked for arthritis and bowel ([id number]) Currently on Delzicol (mesalamine) She stopped simponi 1 year ago since she was doing well. Notably simponi helped her back pain and her joint pains. 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 She established care with GI recently with no inflammation on biopsy, colonoscopy, and MRI. She is on mesalamine for this. Today she reports AM stiffness in her lower SI joints that last till lunch. She reports pain in the buttocks. Her pain is worse when she stands or walks with her hip giving out. She reports R>L wrist and elbow pain, jaw, and paraspinal C spine pain. REVIEW OF SYSTEMS 12 pt ROS negative unless noted above PAST MEDICAL HISTORY Past Medical History: Diagnosis Date Allergy Asthma Calculus of kidney Complication of anesthesia Depression DVT (deep venous thrombosis) (HCCode) Endometriosis Fibromyalgia Headache(784.0) Hypertension Inflammatory polyarthritis (HCCode) Kidney infection Pulmonary emboli (HCCode) Recurrent UTI Type II or unspecified type diabetes mellitus without mention of complication, not stated as uncontrolled Ulcerative colitis (HCCode) PAST SURGICAL HISTORY Past Surgical History: Procedure Laterality Date HX ADENOIDECTOMY HX ANKLE SURGERY Left HX D&C endometrial surgery HX GALLBLADDER REMOVAL HX KIDNEY REMOVAL HX NASAL SEPTUM SURGERY MEDICATIONS Current Outpatient Medications on File Prior to Visit Medication Sig Dispense Refill albuterol HFA (PROVENTIL HFA, VENTOLIN HFA) 108 (90 BASE) MCG/ACT inhaler Inhale 1-2 Puffs by mouth every 6 hours as needed for Wheezing. 1 Inhaler 0 Apixaban (ELIQUIS) 5 MG TABS Take 5 mg by mouth two times daily. 60 Tab 1 fluticasone (FLONASE) 50 MCG/ACT nasal spray 2 Sprays by Each Nostril route two times daily. 16 g 5 fluticasone-salmeterol (ADVAIR DISKUS) 500-50 MCG/DOSE inhaler Inhale 1 Puff by mouth two times daily. 1 Each 12 hydrOXYzine (ATARAX) 25 MG tablet Take 1 Tab by mouth 3 times daily as needed for Itching. 30 Tab 0 lamotrigine (LAMICTAL) 25 MG tablet Take 100 mg by mouth. pantoprazole (PROTONIX) 40 MG tablet Take 1 Tab by mouth daily. 1 tablet by mouth every day 60 Tab 5 trazodone (DESYREL) 100 MG tablet Take 100 mg by mouth nightly. No current facility-administered medications on file prior to visit. ALLERGIES Allergies as of 05/12/2020 - Reviewed 05/12/2020 Allergen Reaction Noted Levaquin Palpitations 06/11/2011 Adhesive tape Blister 05/23/2010 Cephalosporins 05/12/2020 Ciprofloxacin 05/12/2020 Cymbalta [duloxetine hcl] 05/14/2011 Keflex Itching 05/23/2010 Metformin hcl 05/23/2010 Nsaids Swelling 05/23/2010 Sulfa antibiotics 05/12/2020 FAMILY HISTORY FH: Family History Problem Relation Name Age of Onset Blood Clots Mother Headaches Mother Hypothyroidism Mother Thyroid Disease Mother Alcoholism Father Alcoholism Sister Anxiety Sister Asthma Sister Diabetes Sister Hypertension Sister Anxiety Brother Diabetes Brother Cancer Maternal Grandmother Anemia Maternal Grandmother Anxiety Maternal Grandmother Hypothyroidism Maternal Grandmother Rheumatoid Arthritis Maternal Grandmother Diabetes Maternal Grandfather Signs of heart disease before age 55 in a man Maternal Grandfather Hypertension Maternal Grandfather Thyroid Disease Other children Inflammatory Bowel Dz Neg Hx Sle Neg Hx SOCIAL HISTORY Social History Tobacco Use Smoking status: Never Smoker Smokeless tobacco: Never Used Substance Use Topics Alcohol use: Yes Comment: occ Drug use: No PHYSICAL EXAM VS : Blood pressure 135/88, pulse 87, temperature 97.7 F (36.5 C), temperature source Temporal, resp. rate 16, height 5' 7" (1.702 m), weight (!) 330 lb (149.7 kg), SpO2 95 %. GENERAL: NAD, pleasant, healthy appearing HEENT: sclera anicteric, OP clear NECK: Supple CV: RRR CHEST: normal work of breathing ABD: soft EXT: no edema Neuro: grossly intact, normal gait, left ankle in a boot SKIN no rash MUSCULOSKELETAL EXAM : DIP- no Heberdens nodes, no synovitis, nontender (bilateral) PIP - no Bouchards nodes,no synovitis, nontender (bilateral) MCP - neg squeeze, no synovitis or effusion, nontender (bilateral) WRIST - FROM to palmar and dorsi flexion, no effusion, no synovitis ELBOWS - no effusion, no synovitis, no nodules or tophi, FROM, no flexion contracture, nontender, notendonitis(bilateral) SHOULDERS - FROM but tender, she reports getting bilateral CSI to her shoulders in April BACK- SI tenderness KNEES - no effusion, no synovitis ANKLES left ankle in a boot ADDITIONAL DATA Labs and Xrays were reviewed. Lab Results Component Value Date WBC 5.9 11/24/2012 HGB 14.0 11/24/2012 HCT 40.9 11/24/2012 MCV 91.7 11/24/2012 PLT 230 11/24/2012 Results for orders placed or performed in visit on 03/05/12 COMPREHENSIVE METABOLIC PANEL Result Value GLUCOSE 85 BLOOD UREA NITROGEN 21 CREATININE 1.1 EGFR AA 70 EGFR 58 (L) BUN/CREAT RATIO 19 SODIUM 139 POTASSIUM 4.1 CHLORIDE 104 CO2 25 CALCIUM 9.9 PROTEIN TOTAL 7.5 ALBUMIN 4.8 GLOBULINS, SERUM, TOTAL 2.7 A/G RATIO 1.8 BILIRUBIN TOTAL 0.5 ALKALINE PHOSPHATASE 39 AST (SGOT) 10 ALT (SGPT) 12 MRI abdomen DEXA 03/2020 Normal EGD Colonoscopy Biopsy without inflammation IMPRESSION AND PLAN Emilia Lora is a 39 y.o. 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 Her UC is under control off Simponi. She is now only on mesalamine for her UC. In regards to her joints I am unclear if she has any active synovitis. It is possible she has mild tendonitis but I am most interested in her lower back pain. She has AM stiffness which is concerning for a inflammatory process but I am unclear how much of a component is due to MSK strain from her weight. We will get ESR/CRP and HLAB27 testing. I also would like a MRI SI joints to evaluate for any active sacroiliitis. We are unable to do NSAIDs due to her history of nephrectomy. If her MRI SI joints are positive we can consider another biologic. In case we will get TB and hepatitis screening. For now she has reported benefit with gabapentin in the past. We will do 300 mg TID. She is requesting genetic referral for EDS diagnosis. She is not overtly hypermobile on my exam today. I have referred her to PT for MSK joint pain for now. Follow up in 3 months Immunization History Administered Date(s) Administered Hep A/Hep B 12/31/2011, 02/15/2012, 07/17/2012 Influenza (whole) 04/13/2015 Influenza Quad-PF 05/12/2020 PPD Test 12/28/2011 Pneumococcal Conjugate 04/13/2015 Tdap 12/31/2011, 01/14/2015, 10/02/2015 Fidel Blanc MD Department of Medicine Section of Immunology, Allergy and Rheumatology Orders Placed This Encounter Procedures MRI SACRUM\\SI joints WITHOUT CONTRAST Fluzone Quad - Preservative FREE C-reactive protein Sedimentation rate, automated HLA-B27 antigen Hepatitis B Surface AB Quant Hepatitis B surface antigen HEPATITIS B CORE AB TOTAL W/REFL IGM Hepatitis C antibody Quantiferon-TB Gold Plus 4 Tubes AMB REF TO GENETICS (ADULT NON OB) [facility] AMB REF TO PHYSICAL THERAPY EXTERNAL uFidel MD - 05/12/2020 2:45 PM CST RHEUMATOLOGY CLINIC HISTORY OF PRESENT ILLNESS: Emilia Lora is a 39 y.o. 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 She is referred by her PCP Dr. Price. November 2019 leg cramp found to have popliteal DVT and PE on Eliquis, prior had ankle surgery. Off hormone therapy for PCOS since clot diagnosis. Seen by hematology, no APLS workup. She has had three 1st trimester pregnacy losses Nephrectomy due to reflux, atrophy, and chronic UTI UC diagnosed in 2015 Prior medications prednisone, sulfasalalzine, imuran, simponi Britney worked for arthritis and bowel ([id number]) Currently on Delzicol (mesalamine) REVIEW OF SYSTEMS No fevers, chills, sweats, rigors No weight change, anorexia, fatigue, malaise No headache, alopecia, eye redness, photophobia, burning, dry eyes No nasal congestion, sores, oral sores, sore throat, dry mouth No cough or sputum No swollen LN in neck or axilla No pleurisy, SOB, JONES, PND. No chest pain or palpitations No abdominal pain, nausea, emesis, diarrhea No lower extremity swelling No paresthesias No muscle weakness or pain. No joint pain or swelling No skin rash, no psoriatic like lesions, no nodules, no livedoid rash, nail pitting, no digital ulcers No Raynauds No heat/cold intolerance No depression or anxiety PAST MEDICAL HISTORY Past Medical History: Diagnosis Date Allergy Asthma Calculus of kidney Complication of anesthesia Depression Endometriosis Fibromyalgia Headache(784.0) Hypertension Inflammatory polyarthritis (HCCode) Kidney infection Recurrent UTI Type II or unspecified type diabetes mellitus without mention of complication, not stated as uncontrolled Ulcerative colitis (HCCode) PAST SURGICAL HISTORY Past Surgical History: Procedure Laterality Date HX ADENOIDECTOMY HX D&C endometrial surgery HX GALLBLADDER REMOVAL HX KIDNEY REMOVAL MEDICATIONS Current Outpatient Medications on File Prior to Visit Medication Sig Dispense Refill albuterol HFA (PROVENTIL [...] by mouth nightly. No current facility-administered medications on file prior to visit. ALLERGIES Allergies as of 05/12/2020 - Reviewed 04/28/2020 Allergen Reaction Noted Levaquin Palpitations 06/11/2011 Adhesive tape Blister 05/23/2010 Cymbalta [duloxetine hcl] 05/14/2011 Keflex Itching 05/23/2010 Metformin hcl 05/23/2010 Nsaids Swelling 05/23/2010 FAMILY HISTORY FH: Family History Problem Relation Name Age of Onset Blood Clots Mother Headaches Mother Hypothyroidism Mother Alcoholism Father Alcoholism Sister Anxiety Sister Asthma Sister Diabetes Sister Hypertension Sister Anxiety Brother Diabetes Brother Cancer Maternal Grandmother Anemia Maternal Grandmother Anxiety Maternal Grandmother Hypothyroidism Maternal Grandmother Diabetes Maternal Grandfather Signs of heart disease before age 55 in a man Maternal Grandfather Hypertension Maternal Grandfather SOCIAL HISTORY Social History Tobacco Use Smoking status: Never Smoker Smokeless tobacco: Never Used Substance Use Topics Alcohol use: Yes Comment: occ Drug use: No PHYSICAL EXAM VS : There were no vitals taken for this visit. GENERAL: NAD, pleasant, healthy appearing HEENT: sclera anicteric, OP clear, PERRL NECK: supple no LAD, no TM, FROM CV: RRR no mgr CHEST: CTA bilateral with no rales no wheezes, equal inspiratory movement bilaterally ABD: soft NT ND BS+ no HSM EXT: no cce Neuro: grossly intact, normal gait, motor exam with nl strength in UE and LE symmetrically, DTR2+ inbrachial, wrist, patellar, ankle kimberley.; EHL nl kimberley SKIN no rash, no nail pits, no onycholysis, no nodules MUSCULOSKELETAL EXAM : DIP- no Heberdens nodes, no synovitis, nontender (bilateral) PIP - no Bouchards nodes,no synovitis, nontender (bilateral) MCP - neg squeeze, no synovitis or effusion, Bunel's test neg, nontender (bilateral) WRIST - FROM to palmar and dorsi flexion, no effusion, no synovitis, neg Tinels and Phalens (bilateral) ELBOWS - no effusion, no synovitis, no nodules or tophi, FROM, no flexion contracture, nontender, notendonitis(bilateral) SHOULDERS - FROM nontender (bilateral) HIPS - FROM nontender, neg for trochanteric bursitis (bilateral) KNEES - no effusion, no synovitis, nontender, no crepitus, no patellar clicking, neg prepatellar bursa tenderness, neg anserine bursa tenderness (bilateral) ANKLES no synovitis or effusion, FROM in inv/eversion, dorsi/plantar, nontender (bilateral) MTPs neg squeeze tenderness, no synovitis (bilateral) BACK : nontender, normal curvature, neg SLR, neg EHL Occiput to wall (in cm): Chest Expansion (in cm): Schobers (in cm): Right lateral bending (in cm): Left lateral bending (in cm): Fibromyalgia Trigger points negative ADDITIONAL DATA Labs and Xrays were reviewed. Lab Results Component Value Date WBC 5.9 11/24/2012 HGB 14.0 11/24/2012 HCT 40.9 11/24/2012 MCV 91.7 11/24/2012 PLT 230 11/24/2012 Results for orders placed or performed in visit on 03/05/12 COMPREHENSIVE METABOLIC PANEL Result Value GLUCOSE 85 BLOOD UREA NITROGEN 21 CREATININE 1.1 EGFR AA 70 EGFR 58 (L) BUN/CREAT RATIO 19 SODIUM 139 POTASSIUM 4.1 CHLORIDE 104 CO2 25 CALCIUM 9.9 PROTEIN TOTAL 7.5 ALBUMIN 4.8 GLOBULINS, SERUM, TOTAL 2.7 A/G RATIO 1.8 BILIRUBIN TOTAL 0.5 ALKALINE PHOSPHATASE 39 AST (SGOT) 10 ALT (SGPT) 12 MRI abdomen DEXA 03/2020 Normal EGD Colonoscopy Biopsy without inflammation IMPRESSION AND PLAN Emilia Lora is a 39 y.o. 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 Fidel Blanc MD Department of Medicine Section of Immunology, Allergy and Rheumatology No orders of the defined types were placed in this encounter. UCT SUPPORT CONSULTANT documented in this encounter Plan of Treatment Date Type Specialty Care Team Description 06/08/2020 Office Visit Hematology and Oncology Jason Campbell MD [address] [facility] 7th Floor, [address] [place], [place] [address] [phone] Name Type Priority Associated Diagnoses Order S chedule C-REACTIVE PROTEIN Lab Routine Low back pain, unspeci fied Ordered: 05/12/2020 back pain laterality, unspecified chronicity, unspecified whether sciatica present SEDIMENTATION RATE Lab Routine Low back pain, unspeci fied Ordered: 05/12/2020 MODIFIED WESTERGREN back pain laterality, unspecified chronicity, unspecified whether sciatica present HLA-B27 ANTIGEN Lab Routine Low back pain, unspecifie d Ordered: 05/12/2020 back pain laterality, unspecified chronicity, unspecified whether sciatica present MRI SACRUM WO CONTRAST Imaging Routine Low back pain, uns pecified 1 Occurrences back pain laterality, starti ng 05/12/2020 unspecified chronicity, unti l 05/12/2021 unspecified whether sciatica present HEPATITIS B SURFACE AB Lab Routine Long-term use of O rdered: 05/12/2020 QUANT immunosuppressant medication HEPATITIS B SURFACE Lab Routine Long-term use of Orde red: 05/12/2020 ANTIGEN immunosuppressant medication HEPATITIS B CORE AB Lab Routine Long-term use of Orde red: 05/12/2020 TOTAL W/REFL IGM immunosuppressant medication HEPATITIS C ANTIBODY Lab Routine Long-term use of Ord ered: 05/12/2020 immunosuppressant medication QUANTIFERON TB GOLD Lab Routine Long-term use of Orde red: 05/12/2020 PLUS 4 TUBES immunosuppressant medication Name Type Priority Associated Diagnoses Order S sae AMB REF TO Outpatient Referral Routine Hypermobility Ordered : GENETICS(GENERAL & arthralgia 0 ALL CANCERS)[facility] AMB REF TO PT Outpatient Referral Routine Hypermobility Ordere d: EXTERNAL arthralgia 05/12/2020 Low back pain, unspecified back pain laterality, unspecified chronicity, unspecified whether sciatica present Health Maintenance Due Date Last Done Comments BMI FOLLOW UP PLAN 1998 HEPATITIS C SCREENING 1998 HIV SCREENING 1998 CERVICAL CANCER SCREENING 2001 3 YEAR FOLLOW UP COLON CANCER SCREENIN03/03/2021 03/03/2020 COLONOSCOPY TETANUS SHOT (ADULT) 10/01/2025 10/02/2015, 01/14/2015, 12/31/2011, Additional history exists FLU VACCINE > 6 MONTHS Completed 05/12/2020, 04/13/2015 HPV VACCINE Aged Out No longer miguelb lamberto based on patient 's age to complete this topic documented as of this encounter Results Not on filedocumented in this encounter Visit Diagnoses Diagnosis Low back pain, unspecified back pain lat erality, unspecified chronicity, unspecified whether sciatica present - Primary Hypermobility arthralgia Pain in joint, site unspecified Long-term use of immunosuppressant medic ation Encounter for long-term (current) use of other medications Ulcerative colitis with complication, un specified location (HCCode) Need for influenza vaccination Need for prophylactic vaccination and in oculation against influenza documented in this encounter Insurance Payer Benefit Plan / Subscriber ID Effective Dates Phone Addre ss Type Group [facility] [id number] 2020-Present [address] Medicaid [facility] [place] [place] HEALTH PLAN HEALTH PLAN [id number] documented as of this encounter Advance Directives For more information, please contact: [phone] Type Date Recorded Patient Patient Escort Explanati on Advance Directives and Living Will Power of Process Development Associate
--- OUTSIDE RECORDS SUMMARY | 2020-05-29 16:53 | XMS REPORT | Continuity of Care Document ---
:1980 Author Organization [facility] t Address [address] [place] [address] Care Team Providers Name Role Phone Carlos SANDOVAL Primary Care Physician Cristel SANDOVAL Attending Clinician Tucker Blanc MD Attending Clinician DOTTY Attending Clinician Unavailable Huy SANDOVAL Attending Clinician KALINA Attending Clinician Unavailable Kalina SANDOVAL Attending Clinician Aniya Heart MD Attending Clinician Katlin Rios MD Attending Clinician Celine Gonzalez MD Attending Clinician LANDY Attending Clinician Unavailable VANESA Attending Clinician Unavailable NELSON Attending Clinician Unavailable STU Attending Clinician Unavailable JITENDRA Attending Clinician Unavailable KAY Attending Clinician Unavailable FULLICK Attending Clinician Unavailable AHMED Attending Clinician Unavailable BECKY Attending Clinician Unavailable HARLEY Attending Clinician Unavailable VIGNESH Attending Clinician Unavailable CARI Attending Clinician Unavailable JAZLYN Attending Clinician Unavailable EDUARD Attending Clinician Unavailable EDUARD Attending Clinician Unavailable CHITRA Attending Clinician Unavailable KALINA Admitting Clinician Unavailable Payers Payer Name Policy Type Policy Effective Date Expiration Date Sour ce Number MEDICAID - [id number] 2019 [facility] MEDICAID MGD 00:00:00 - Medical [facility] [id number]/06/25 020-PresentMedicai d Contracted Problems Condition Condition Condition Status Onset Resolution Last Treating Co mments Source Name Details Category Date Date Treatment Clinician Date 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 9-10 [facility] - [facility]: Medical 00 [place] Enteropath Enteropath Disease Active 2016-06 [facility] [place] ic ic 0-30 [facility] arthritis arthritis 00:00: st 00 Neuropathy Neuropathy Disease Active 2016-06 [place] 0-30 Methodi 00:00: st 00 RILEY RILEY Disease Active 2016-06 [place] (obstructi (obstructi 0-09 Me thodi ve sleep ve sleep 00:00: st apnea) apnea) 00 Asthma Asthma Disease Active 2016-06 [place] dependent dependent 0-09 Meth daniela on inhaled on inhaled 00:00: st steroids steroids 00 Chronic Chronic Disease Active [place] obstructiv obstructiv 4-10 Me thodi e asthma e asthma 00:00: st with acute with acute 00 exacerbati exacerbati on on Cough Cough Disease Active [place] 4-10 Methodi 00:00: st 00 Allergic Allergic Disease Active [place] rhinitis rhinitis 4-10 Method i due to due to 00:00: st pollen pollen 00 Inflammato Inflammato Disease Active [place] ry ry 3-09 [facility] polyarthri polyarthri 00:00: st tis tis 00 Fibromyalg Fibromyalg Disease Active [place] ia ia 3-09 Methodi 00:00: st 00 Encounter Encounter Disease Active 2015-06 Jolanta schuler for for 2-15 [facility] monitoring monitoring 00:00: st azathiopri azathiopri 00 ne therapy ne therapy Vitamin D Vitamin D Disease Active 2015-06 Jolanta schuler insufficie insufficie 1-08 Me thodi ncy ncy 00:00: st 00 Myalgia Myalgia Disease Active 2015-06 [place] 1 Methodi 00:00: st 00 Chronic Chronic Disease Active 2015-06 [place] midline midline 1-08 [facility] low back low back 00:00: st pain pain 00 without without sciatica sciatica Ulcerative Ulcerative Disease Active 2015-06 [place] colitis colitis 1-05 [facility] with with 00:00: st complicati complicati 00 on on History of History of Disease Active 2015-06 [place] endometrio endometrio 1-05 Me thodi sis sis 00:00: st 00 IBS IBS Disease Active 2015-06 [place] (irritable (irritable 1-05 Me thodi bowel bowel 00:00: st syndrome) syndrome) 00 Abdominal Abdominal Disease Active 2015-06 Jolanta ston pain pain 1-05 Methodi 00:00: st 00 Weakness Weakness Disease Active 2015-06 [place] 105 Methodi 00:00: st 00 Anxiety Anxiety Disease Active 2015-06 [place] 105 Methodi 00:00: st 00 Gastropare Gastropare Disease Active 2015-06 [place] sis sis 0-25 Methodi 00:00: st 00 Tendonitis Tendonitis Disease Active 2015-06 [place] of elbow, of elbow, 0-06 Meth daniela [...] 7-12 [facility] knee/leg knee/leg 00:00: st 00 History of History of Problem Resolve Univers [...] Active Univers (post-trau (post-trau it y of matic matic [place] stress stress Physici disorder) disorder) ans Other [...] disorder disorder ity of [place] Physici ans Deep Deep Problem Active Univers peroneal peroneal [place]y of neuropathy neuropathy [place] , left , left Physici ans Allergies, Adverse Reactions, Alerts Allergy Allergy Status Severity Reaction(s) Onset Inactive Treating Comm ents Source Name Type Date Date Clinician Amoxicil Propensi Active Diarrhea [facility]-02 [facility] - adverse 00:[facility]: Medical reaction 00 Center s Amoxicil Propensi Active Diarrhea [facility] pollo-Pot ty to 03-02 [facility] - Clavulan adverse 00:00: Medical ate reaction 00 Center s Celecoxi Propensi Active Swelling tongue [facility] b ty to 03-02 [facility] - adverse 00:00: Medical reaction 00 Center s Cephalos Propensi Active Hives, [facility] porins ty to Itching 03-02 [facility] - adverse 00:00: Medical reaction 00 Center s Ciproflo Propensi Active Other (See tachycard [facility] xacin ty to Comments) 03-02 ia [facility] - (Bulk) adverse 00:00: Medical reaction 00 Center s Levoflox Propensi Active Other (See tachycard [facility] acin ty to Comments) 03-02 ia [facility] - adverse 00:00: Medical reaction 00 Center s Sulfa Propensi Active Swelling Tongue [facility] (Sulfona ty to 03-02 swelling [facility] - mide adverse 00:00: Medical Antibiot reaction 00 Center ics) s Adhesive Propensi Active Itching 2015-06 Skin [place] [...] 00 s to drug Adhesive Propensi Active Hives 2010-[address] [facility] Tape ty to 07-23 [facility] - adverse 00:00: Medical reaction 00 Center s Nsaids Propensi Active Swelling 2009-[address] (Non-Remigio ty to 07-23 tongue [facility] - roidal adverse 00:00: Medical Anti-Inf reaction 00 Center lammator s y Drug) Ciproflo Allergy Active Univers xacin to drug ity of HCl TABS (finding [place] ) Physici ans Keflex Allergy Active Univers TABS to drug ity of (finding [place] ) Physici ans Levaquin Allergy Active Univers TABS to drug ity of (finding [place] ) Physici ans CeleBREX Allergy Active Anaphylaxis Un marko CAPS to drug ity of (finding [place] ) Physici ans Sulfa Allergy Active Anaphylaxis Univ ers Drugs to drug ity of (finding [place] ) Physici ans Family History Family Member Diagnosis Comments Start [...] ians Natural brother Alcohol abuse [place] Rastafarian Natural brother Depression [place] Rastafarian Natural brother Irritable bowel [place] syndrome Rastafarian Natural brother Learning disabilities [place] Rastafarian Natural brother Mental illness [place] Rastafarian Natural father Alcohol abuse [place] Rastafarian Natural father Hypertension [place] Rastafarian Maternal Diabetes [place] grandfather Rastafarian Maternal Heart disease [place] grandfather Rastafarian Maternal Hypertension [place] grandfather Rastafarian Maternal Parks's esophagus [place] grandmother Rastafarian Maternal Cancer [place] grandmother Rastafarian Maternal GERD [place] grandmother Rastafarian Maternal Liver cancer [place] grandmother Rastafarian Maternal Ulcerative colitis [place] Rastafarian Natural mother Arthritis [place] Rastafarian Natural mother Vision loss [place] Rastafarian Natural sister Alcohol abuse [place] Rastafarian Natural sister Depression [place] Rastafarian Natural sister Irritable bowel [place] syndrome Rastafarian Natural sister Learning disabilities [place] Rastafarian Natural sister Mental illness [place] Rastafarian Social History Social Habit Start Date Stop Date Quantity Comments Source Sex Assigned At RACHELE Salinas [facility] Tobacco use and 2020-03-03 2020-03-03 Never used RACHELE Salinas - exposure 00:00:00 00:00:00 Medical Center Alcohol intake 2020-03-03 2020-03-03 Current drinker RACHELE Billy - 00:00:00 00:00:00 of alcohol Medical Center (finding) Alcohol Comment 2020-03-02 2020-03-02 rarely RACHELE Salinas - 00:00:00 00:00:00 Medical Center Smoking Status Start Date Stop Date Source Never smoker RACHELE Bynum [facility] Medications Ordered Filled Start Stop Current Ordering Indication Dosage Frequency Signature Comments Components Source Medication Medication Date Date Medication? Clinician (SIG) Name Name albuterol 2020-0 Yes 1{puff} Inhale [address] HFA 9-10 puff by [facility] - (VENTOLIN 17:30: mouth via Med ical HFA) 90 15 inhaler Center mcg/actuati every 6 on inhaler (six) hours as needed for Wheezing. fluticasone 2020-0 Yes 1{puff} Inhale [address] -salmeterol 9-10 puff by [facility] - (ADVAIR) 17:30: mouth via Medi tyler 100-50 15 inhaler Center mcg/dose every 12 diskus (twelve) inhaler hours. traZODone 2020-0 Yes 100mg QD Take [address] (DESYREL) 9-10 mg by [facility] - 100 MG 17:30: mouth Medical tablet 15 nightly . Center apixaban 2020-0 Yes 5mg Q.5D Take [address] [address] (ELIQUIS) 5 9-10 by mouth 2 Ilene kes - mg Tab 17:30: (two) Medical tablet 15 times Center daily. mesalamine 2020-0 Yes 2400mg Q.5D Take 2,[address] (LIALDA) 9-10 mg by [facility] - 1.2 gram EC 17:30: mouth 2 Med ical tablet 15 (two) Center times daily. propranoloL 2020-0 Yes 20mg [id number] Take [address] (INDERAL) 9-10 [id number] by mouth 3 [facility] - 20 MG 17:30: 3D (three) Medical tablet 15 times Center daily. lamoTRIgine 2020-0 Yes 100mg QD Take [address] (LAMICTAL) 9-10 mg by [facility] - 25 MG 17:30: mouth Medical tablet 15 nightly. [place] gabapentin 2019-0 Yes 800mg [id number] Take [address] (NEURONTIN) 9-10 [id number] mg by L ukes - 800 MG 17:30: 3D mouth 3 Medical tablet 15 (three) Center times daily. dexlansopra 2020-0 Yes 60mg QD Take [address] [address] zole 60 mg 9-10 by mouth [facility] - capsule 17:30: daily. [facility] 15 [place] dexlansopra 2019-0 2020- No 60mg QD Take [address] zole 60 mg 03-02 by mouth Luke s - capsule 09:47: 00:00 daily. Medical 27 :00 [place] nitrofurant 2019-0 2020- No 100mg Q.5D Take [address] oin, 03-02 mg by [facility] - macrocrysta 09:46: 00:00 mouth 2 Me dical l-monohydra 59 :00 (two) Center te, times (MACROBID) daily. 100 MG capsule norethindro 2019-0 2020- No 1{tbl} QD Take [address] ne-ethinyl 03-02 tablet by Ady es - estradiol 09:45: 00:00 mouth Medica l (MICROGESTI 58 :00 daily. Center N 07/13) 1-20 mg-mcg per tablet buPROPion 0 2020- No 450mg QD Take [address] HCl 450 mg 03-02 mg by [facility] - Tb24 09:43: 00:00 mouth Medical 15 :00 daily. [place] lamoTRIgine lamoTRIgine 2019-0 Yes HECTOR 1 TAKE 1 Univers 100 MG Oral 100 MG Oral 8-05 STORM M.D. TABLET ity of Tablet Tablet 00:00: BEDTIME [place] 00 Physici ans Ondansetron Ondansetron 2019-0 Yes YANELI Every 8 Univers 4 MG Oral 4 MG Oral 7-10 VANESA hours as ity of Tablet Tablet 00:00: N.P. needed for Tim as Disintegrat Disintegrat 00 nausea Physici ing ing ans Acetaminoph Acetaminoph 2019-0 Yes YANELI 1 TAKE 1 Univers en-Codeine en-Codeine 7-10 VANESA TABLET ity of #3 300-30 #3 300-30 00:00: N.P. EVERY 6 [place] MG Oral MG Oral 00 HOURS Physi ci Tablet Tablet NEEDED FOR ans PAIN. methylPREDN methylPREDN 2019-0 Yes HOLGER PERAZA TAKE Univers ISolone 4 ISolone 4 3-02 M.D. 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 Physici ans Ibuprofen Ibuprofen 2018-06 Yes Uni vers 200 MG Oral 200 MG Oral 1-11 i ty of Tablet Tablet 00:00: [place] 00 Physici ans Fluticasone Fluticasone 2018-06 Yes CHONG Q0.5D INHALE [...] tubing, filters, etc. Good for ONE YEAR Lidocaine 5 Lidocaine 5 2018- Yes ROXANN APPLY 1 Univers % External % External 812 JAMALYARIA PATCH TO ity of Patch Patch 00:00: M.D. THE [place] 00 AFFECTED Physici AREA AND ans LEAVE IN PLACE FOR 12 HOURS, THEN REMOVE AND LEAVE OFF FOR 12 HOURS. Proventil Proventil Yes CASTILLO INHALE ONE Univers HFA 108 (90 HFA 108 (90 8-12 CHITRA TO TWO ity of Base) Base) 00:00: M.D. PUFFS BY [place] MCG/ACT MCG/ACT 00 MOUTH Physici Inhalation Inhalation EVERY 4 ans Aerosol Aerosol HOURS Solution Solution NEEDED Diclofenac Diclofenac Yes ROXANN APPLY 2 GM Univers Sodium 1 % Sodium 1 % 808 JAMALYARIA OF GEL TO ity of Transdermal Transdermal 00:00: M.D. AFFECTED [place] Gel Gel 00 AREA 4 Physici TIMES ans DAILY. DO NOT APPLY MORE THAN 8 GM DAILY TO ANY ONE AFFECTED AREA. 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 TABLET 3 ity of Tablet Tablet 00:00: TIMES [place] 00 DAILY. Physici ans Baclofen 20 Baclofen 20 2018- Yes ALANA JITENDRA 1 Q0.3333D TAKE 1 Univers MG Oral MG Oral 7-08 M.D. TABLET 3 ity o f Tablet Tablet 00:00: TIMES [place] 00 DAILY Physici NEEDED. ans SIMPONI 50 Yes Chronic low INJECT 1 [...] 2016-06 Yes 1{tbl} QD Take 1 Ho usdavidson ne-e.estrad 0-30 tablet by Met hodi iol-iron 13:19: mouth st (LOESTRIN 10 daily. 24 FE) 1 mg-20 mcg (24)/75 mg (4) per tablet mometasone Yes 2{spray QD 2 sprays Steve (NASONEX) 4-10 } into each Metho di 50 00:00: nostril st mcg/actuati 00 daily. on nasal spray albuterol Yes 1{puff} Q6H Inhale 1-2 [place] (PROAIR 4-10 puffs Methodi HFA,PROVENT 00:00: every 6 st [place] 00 (six) HFA,VENTOLI hours as N HFA) 90 needed for mcg/actuati shortness on inhaler of breath. clonAZEPAM 2015-06 Yes [place] (KlonoPIN) 2-10 Methodi 0.5 MG 00:00: st tablet 00 escitalopra Yes 20mg QD Take 20 mg [facility] (LEXAPRO) 03-20 by mouth Meth daniela 20 MG 00:00: daily. st tablet 00 Immunizations Ordered Filled Date Status Comments Source Immunization Name Immunization Name FLUZONE QUAD PF 2016-04-17 Completed [place] 00:00:00 Rastafarian Tdap Unknown Completed [facility] Physicia ns Vital Signs Vital Name Observation Time Observation Value Comments Source Systolic blood 2020-03-03 110 mm[Hg] [facility] pressure 16:25:00 [facility] Diastolic blood 2020-03-03 48 mm[Hg] [facility] pressure 16:25:00 [facility] Heart rate 2020-03-03 97 /min [facility] - 16:25:00 [facility] Body temperature 2020-03-03 37.[address] [facility] - 16:25:00 [facility] Respiratory rate 2020-03-03 18 /min [facility] - 16:25:00 [facility] Oxygen saturation 2020-03-03 97 /min [facility] St Ady es - in Arterial blood 16:25:00 [facility] nter by Pulse oximetry Body height 2020-03-03 175.3 cm [facility] - 11:50:00 [facility] Body weight 2020-03-03 182.89 [address] [facility] - 11:50:00 [facility] BMI 2020-03-03 59.54 kg/m2 [facility] - 11:50:00 [facility] BP Systolic 2019-07-13 118 mm[Hg] Location: [facility] 13:08:00 Position: [place] Physician s Sitting BP Diastolic 2019-07-13 73 mm[Hg] Location: [facility] 13:08:00 Position: [place] Physician s Sitting Height 2019-07-13 68 [in_us] University 13:08:00 [place] Physician s Weight 2019-07-13 331 [lb_av] University of 13:08:00 [place] Physician s Body Mass Index 2019-07-13 50.33 kg/m2 University o f Calculated 13:08:00 [place] Physician s Heart Rate 2019-07-13 84 /min University of 13:08:00 [place] Physician s BP Systolic 2019-04-16 100 mm[Hg] Location: [facility]; [facility] 12:58:00 Position: [place] Physician s Sitting BP Diastolic 2019-04-16 66 mm[Hg] Location: [facility]; [facility] 12:58:00 Position: [place] Physician s Sitting Height 2019-04-16 68 [in_us] University of 12:58:00 [place] Physician s Weight 2019-04-16 332 [lb_av] University of 12:58:00 [place] Physician s Body Mass Index 2019-04-16 50.48 kg/m2 University o f Calculated 12:58:00 [place] Physician s Heart Rate 2019-04-16 91 /min Location: [facility] 12:58:00 Radial; [place] Physician s Quality: Normal BP Systolic 2019-03-26 122 mm[Hg] Location: [facility]; [place] of 11:25:00 Position: [place] Physician s Sitting BP Diastolic 2019-03-26 73 mm[Hg] Location: [facility]; [facility] 11:25:00 Position: [place] Physician s Sitting Height 2019-03-26 68 [in_us] University of 11:25:00 [place] Physician s Weight 2019-03-26 335 [lb_av] University of 11:25:00 [place] Physician s Body Mass Index 2019-03-26 50.94 kg/m2 University o f Calculated 11:25:00 [place] Physician s Heart Rate 2019-03-26 84 /min University of 11:25:00 [place] Physician s Respiration Rate 2019-03-26 18 /min University of 11:25:00 [place] Physician s BP Systolic 2019-03-05 119 mm[Hg] Location: [facility]; [facility] 10:35:00 Position: [place] Physician s Sitting BP Diastolic 2019-03-05 79 mm[Hg] Location: [facility]; [facility] 10:35:00 Position: [place] Physician s Sitting Height 2019-03-05 68 [in_us] University of 10:35:00 [place] Physician s Weight 2019-03-05 331 [lb_av] [place] of 10:35:00 [place] Physician s Body Mass Index 2019-03-05 50.33 kg/m2 University o f Calculated 10:35:00 [place] Physician s Heart Rate 2019-03-05 90 /min Location: [facility] 10:35:00 Radial; [place] Physician s Temperature 2019-03-05 98.4 [degF] Method: Oral [place] of 10:35:00 [place] Physician s BP Systolic 2019-02-05 120 mm[Hg] Location: [facility] 16:19:00 Position: [place] Physician s Sitting BP Diastolic 2019-02-05 74 mm[Hg] Location: [facility] 16:19:00 Position: [place] Physician s Sitting Height 2019-02-05 68 [in_us] [place] of 16:19:00 [place] Physician s Weight 2019-02-05 329 [lb_av] [place] of 16:19:00 [place] Physician s Body Mass Index 2019-02-05 50.02 kg/m2 University o f Calculated 16:19:00 [place] Physician s Temperature 2019-02-05 98 [degF] Method: Oral [place] of 16:19:00 [place] Physician s Heart Rate 2019-02-05 89 /min Location: [facility] 16:19:00 Radial; [place] Physician s Quality: Normal Respiration Rate 2019-02-05 18 /min Quality: Normal Universi of 16:19:00 [place] Physician s O2 SAT 2019-02-05 95 % Source: [facility] 16:19:00 [place] Physician s BP Systolic 2019-01-29 120 mm[Hg] Location: [facility]; [place] of 15:41:00 Position: [place] Physician s Sitting BP Diastolic 2019-01-29 80 mm[Hg] Location: [facility]; [place] of 15:41:00 Position: [place] Physician s Sitting [...] s BP Systolic 2019-01-23 111 mm[Hg] Location: [facility] 13:46:00 Position: [place] Physician s Sitting BP Diastolic 2019-01-23 69 mm[Hg] Location: [facility] 13:46:00 Position: [place] Physician s Sitting Height 2019-01-23 68 [in_us] University of 13:46:00 [place] Physician s Weight 2019-01-23 330 [lb_av] University of 13:46:00 [place] Physician s Body Mass Index 2019-01-23 50.18 kg/m2 University o f Calculated 13:46:00 [place] Physician s Heart Rate 2019-01-23 86 /min Location: [facility] 13:46:00 Radial; [place] Physician s Quality: Normal BP Systolic 2019-01-14 101 mm[Hg] Location: [facility] 12:53:00 Position: [place] Physician s Sitting BP Diastolic 2019-01-14 66 mm[Hg] Location: [facility] 12:53:00 Position: [place] Physician s Sitting Height [...] Heart Rate 2019-01-14 86 /min Location: R [facility] 12:53:00 Brachial [place] Physician s Artery; Quality: Normal O2 SAT 2019-01-14 95 % Source: [facility] of 12:53:00 [place] Physician s BP Systolic 2019-01-14 [...] Physician s Respiration Rate 2019-01-14 18 /min [facility] 08:57:00 [place] Physician s Heart Rate 2019-01-14 82 /min [facility] 08:57:00 [place] Physician s O2 SAT 2019-01-14 93 % [facility] 08:57:00 [place] Physician s BP Systolic 2019-01-14 120 mm[Hg] Location: [place]; [facility] 08:45:00 Position: [place] Physician s Sitting BP Diastolic 2019-01-14 76 mm[Hg] Location: [place]; [facility] 08:45:00 Position: [place] Physician s Sitting Height 2019-01-14 68 [in_us] University 08:45:00 [place] Physician s Body Mass Index 2019-01-14 49.42 kg/m2 University o f Calculated 08:45:00 [place] Physician s Weight 2019-01-14 325 [lb_av] [facility] 08:45:00 [place] Physician s Respiration Rate 2019-01-14 18 /min [facility] 08:45:00 [place] Physician s Heart Rate 2019-01-14 82 /min [facility] 08:45:00 [place] Physician s O2 SAT 2019-01-14 93 % Source: [facility] 08:45:00 [place] Physician s O2 SAT 2019-01-13 94 % Source: [facility] 08:31:00 [place] Physician s BP Systolic 2019-01-13 119 mm[Hg] Location: [facility]; [facility] 08:26:00 Position: [place] Physician s Sitting BP Diastolic 2019-01-13 79 mm[Hg] [facility] 08:26:00 Position: [place] Physician s Sitting Heart Rate 2019-01-13 91 /min [facility] 08:26:00 [place] Physician s Respiration Rate 2019-01-13 19 /min [facility] 08:26:00 [place] Physician s BP Systolic 2019-01-13 123 mm[Hg] Location: [facility]; [facility] 08:22:00 Position: [place] Physician s Sitting BP Diastolic 2019-01-13 85 mm[Hg] Location: [facility]; [facility] 08:22:00 Position: [place] Physician s Sitting Height 2019-01-13 68 [in_us] [facility] 08:22:00 [place] Physician s Weight 2019-01-13 325 [lb_av] [facility] 08:22:00 [place] Physician s Body Mass Index 2019-01-13 49.42 kg/m2 University o f Calculated 08:22:00 [place] Physician s BP Systolic 2018-12-29 111 mm[Hg] Location: [facility] 13:10:00 Position: [place] Physician s Sitting BP Diastolic 2018-12-29 73 mm[Hg] [facility] 13:10:00 Position: [place] Physician s Sitting Weight 2018-12-29 325.4375 [lb_av] [facility] 13:10:00 [place] Physician s Height 2018-12-29 68 [in_us] [facility] 13:10:00 [place] Physician s Body Mass Index 2018-12-29 49.48 kg/m2 University o f Calculated 13:10:00 [place] Physician s Temperature 2018-12-29 98.3 [degF] Method: Oral [facility] 13:10:00 [place] Physician s Heart Rate 2018-12-29 93 /min Location: [facility] 13:10:00 Brachial [place] Physician s Artery; Quality: Normal O2 SAT 2018-12-29 94 % Source: [facility] 13:10:00 [place] Physician s Respiration Rate 2018-12-29 20 /min Quality: Normal Universi [facility] 13:10:00 [place] Physician s Procedures Procedure Date / Time Performing Clinician Source Performed REPORT OF PROCEDURE - 2020-03-03 16:16:42 Sydney Gonzalez [facility] REPORT OF PROCEDURE - 2020-03-03 16:08:51 Sydney Gonzalez [facility] TISSUE EXAM 2020-03-03 14:37:00 Sydney Gonzalez [facility] COLONOSCOPY,BIOPSY 2020-03-03 14:16:00 Sydney Gonzalez [facility] UPPER ENDOSCOPY,BIOPSY 2020-03-03 14:16:00 Sydney Gonzalez [facility] UPPER 2020-03-03 14:16:00 Sydney Gonzalez [facility] - ENDOSCOPY,POLYPECTOMY Medical Ce nter COLONOSCOPY,POLYPECTOMY 2020-03-03 14:16:00 Sydney Gonzalez HI [facility] COLONOSCOPY,SUBMUCOSAL 2020-03-03 14:16:00 Sydney Gonzalez CH I [facility] POCT , URINE 2020-03-03 07:27:00 Joseph Morales [facility] Post Op Promis 29 Survey 2020-01-08 00:00:00 Uni [facility] Physicians US Extremity lower venous 2019-12-23 00:00:00 [facility] Doppler Unilat [id number] Physicians MR Ankle wo contrast [id number] 2019-10-19 00:00[facility]00 [facility] MRI Spine lumbar wo 2019-08-24 00:00:00 [facility] contrast [id number] Physicians Post Op Promis 29 Survey 2019-05-20 00:00:00 Uni [facility] Physicians [QLH] CLOSTRIDIUM 2019-04-16 00:00:00 [facility] DIFFICILE TOXIN A AND B, Physici ans EIA [QL] CULTURE, STOOL 2019-04-16 00:00:00 [facility] (CAMPYLOBACTER, Physicians SALMONELLA/SHIGELLA) MR Shoulder wo contrast 2019-04-08 00:00:00 [facility] [id number] Physicians Colonoscopy 2019-03-06 00:00:00 [place] [facility] Physicians [QLH] CLOSTRIDIUM 2019-03-05 00:00:00 [facility] DIFFICILE TOXIN A AND B, Physici ans EIA [QL] CULTURE, URINE, 2019-02-13 00:00:00 [facility] ROUTINE Physicians [LH] GC/CT by Amp Det 2019-02-13 00:00:00 [facility] (APTIMA) Physicians MR Ankle wo contrast [id number] 2019-02-10 00:00:00 [facility] [QH] DRUG 2019-02-09 00:00:00 [facility] SCREEN,COMPREHENSIVE Physicians (URINE) XRAY Clavicle Bilateral 2019-01-29 00:00:00 [facility] [id number] Physicians [H] Celiac Pnl w/Rflx 2019-01-23 00:00:00 [facility] Endomy Ab Ttr Physicians [QLH] HEPATIC FUNCTION 2019-01-23 00:00:00 [facility] PANEL Physicians [H] LUNDBERG FibroSure 2019-01-23 00:00:00 [facility] Physicians [QLH] CALPROTECTIN, STOOL 2019-01-23 00:00[facility]00 [facility] US Abdomen Doppler 63890 2019-01-23 00:00:[address] [facility] Physicians H Sleep Lab - Sleep 2019-01-14 00:00:00 Univer [facility] Study Split Night Physicians [H] CK Isoenzymes 2019-01-14 00:00:00 [facility] Physicians Complete PFTs w/DLCO and 2019-01-14 00:00:00 [facility] Lung Volumes Physicians [N] 2D Echo complete, with 2019-01-14 00:00:00 [facility] Doppler 23833 Physicians [QLH] URINALYSIS, COMPLETE 2019-01-13 00:00:00 [facility] W/REFLEX TO CULTURE Physicians [QH] PROTEIN, TOTAL 2019-01-13 00:00:[address] [facility] W/CREAT, RANDOM URINE Physicians [QL] QUANTIFERON(R)-TB 2019-01-13 00:00:00 [facility] GOLD Physicians [QLH] HEPATITIS C ANTIBODY 2019-01-13 00:00:00 [facility] [QH] HEPATITIS B SURFACE 2019-01-13 00:00:00 [facility] ANTIGEN W/REFL CONFIRM Physician s [QH] CYCLIC CITRULLINATED 2019-01-13 00:00:00 [facility] PEPTIDE (CCP) AB (IGG) Physician s XRAY Knee 1-2 Views 2019-01-13 00:00:[address] [facility] Bilateral 11779 Physicians XRAY Chest 2 views [id number] 2019-01-13 00:00:00 [facility] XRAY Hip bilateral w 2019-01-13 00:00:[address] [facility] pelvis and both lat hips Physici ans 22732 XRAY Spine lumbar AP 2019-01-13 00:00:00 [facility] [place] lateral 36268 Physicians XRAY Spine cervical 2 or 2019-01-13 00:00:00 [facility] 3 view 67865 Physicians XRAY Shoulder series [id number] 2019-01-13 00:00:00 [facility] [QLH] TSH, 3RD GENERATION 2018-12-29 00:00:00 [facility] [place] W/REFLEX TO FT4 Physicians [QH] LIPID PANEL WITH 2018-12-29 00:00:00 Univer [facility] REFLEX TO DIRECT LDL Physicians [QLH] HEMOGLOBIN A1c 2018-12-29 00:00:00 [facility] Physicians [QLH] CMP W/EGFR 2018-12-29 00:00:00 [facility] Physicians [[facility]] CBC (INCLUDES 2018-12-29 00:00:00 [facility] DIFF/PLT) Physicians [QH] HIV AB, HIV 1/2, EIA, 2018-12-29 00:00:[address] [facility] WITH REFLEXES Physicians [QL] ABDOUL PANEL, 2018-12-29 00:00:00 [facility] COMPREHENSIVE Physicians [QL] SED RATE BY MODIFIED 2018-12-29 00:00:[address] [facility] WESTERGREN Physicians [H] CRP, hs, Cardiac Risk 2018-12-29 00:00:00 Un [facility] Physicians [H] Urinalysis w/ 2018-12-29 00:00:00 [facility] Microscopic Physicians [[facility]] CULTURE, URINE, 2018-12-29 00:00:00 [facility] ROUTINE Physicians [O] Urine Dipstick (In 2018-12-29 00:00:00 [facility] Office) Physicians History of Ureterectomy [facility] Physicians History of Gallbladder [facility] surgery Physicians History of Endometrial [facility] ablation Physicians History of Kidney surgery [facility] Physicians History of Adenoidectomy [facility] Physicians History of Cholecystectomy [facility] Physicians History of Sinus Surgery [facility] Physicians Plan of Care Planned Activity Planned Date Details Comments Source Future Scheduled Test 2020-02-[address] [facility] 00:[facility]:00 (#1) [code = [facility] INFLUENZA VACCINE (#1)] Future Scheduled Test 2020-01-23 INFLUENZA VACCINE H katlin [facility] 00:00:00 [code = INFLUENZA VACCINE] Diagnostic Test 2019-04-13 [LH] GC/CT by Amp [facility] Pending 00:00:00 Det (APTIMA) [code = Physici ans [LH] GC/CT by Amp Det (APTIMA)] Diagnostic Test 2019-04-09 Colonoscopy [code = [facility] Pending 00:00:00 [id number]] Physicians Diagnostic Test 2019-04-09 Colonoscopy [code = [facility] Pending 00:00:00 [id number]] Physicians Diagnostic Test 2019-04-09 Colonoscopy [code = [facility] [place] Pending 00:00:00 [id number]] Physicians Diagnostic Test 2019-04-[address] [facility] Pending 00:00:00 contrast 63795 [code Physici ans = 75850] Diagnostic Test 2019-04-[address] [facility] Pending 00:00:00 contrast 38614 [code Physici ans = 77746] Diagnostic Test 2019-03-30 Colonoscopy [code = [facility] [place] Pending 00:00:00 [id number]] Physicians Diagnostic Test 2019-03-30 Colonoscopy [code = [facility] [place] Pending 00:00:00 [id number]] Physicians Diagnostic Test 2019-03-30 Colonoscopy [code = [facility] [place] Pending 00:00:00 [id number]] Physicians Diagnostic Test 2019-03-30 Colonoscopy [code = [facility] [place] Pending 00:00:00 [id number]] Physicians Diagnostic Test 2019-01-14 Complete PFTs w/DLCO [facility] Pending 00:00:00 and Lung Volumes Physicians [code = Complete PFTs w/DLCO and Lung Volumes] Diagnostic Test 2019-01-14 [facility] Sleep Lab [facility] Pending 00:00:00 Sleep Study Split Physicians Night [code = [facility] Sleep Lab - Sleep Study Split Night] Diagnostic Test 2019-01-14 [N] 2D Echo [facility] Pending 00:00:00 complete, with Physicians Doppler 33594 [code = [N] 2D Echo complete, with Doppler 84856] Diagnostic Test 2019-01-14 [facility] Sleep Lab [facility] Pending 00:00:00 Sleep Study Split Physicians Night [code = [facility] Sleep Lab - Sleep Study Split Night] Diagnostic Test 2019-01-14 Complete PFTs w/DLCO [facility] Pending 00:00:00 and Lung Volumes Physicians [code = Complete PFTs w/DLCO and Lung Volumes] Diagnostic Test 2019-01-14 [facility] Sleep Lab [facility] Pending 00:00:00 Sleep Study Split Physicians Night [code = [facility] Sleep Lab - Sleep Study Split Night] Diagnostic Test 2019-01-14 [N] 2D Echo [facility] Pending 00:00:00 complete, with Physicians Doppler 67565 [code = [N] 2D Echo complete, with Doppler 64763] Future Scheduled Test 2001 Screening for [place] [facility] 00:00:00 malignant neoplasm of cervix (procedure) [code = 750275765] Future Scheduled Test [facility] malignant neoplasm Medical C enter of cervix (procedure) [code = 117127882] Future Scheduled Test [address] [facility] - 00:00:00 (procedure) [code = [facility] [id number]] Future Appointment 2020-06-20 Radha YOUNG [facility] 14:00:00 Physicians Future Appointment 2020-06-09 Radha YOUNG [facility] 12:00:00 Physicians Encounters Start End Encounter Admission Attending Care Care Encounter Source Date/Time Date/Time Type Type Clinicians Facility Department ID 2019-10-23 Outpatient [id number] 07:24:40 2020-05-12 2020-05-12 Office [facility]am [facility] [id number] 11:31:06 16:54:40 Visit AMBULATOR [id number] Y [id number] 2020-05-12 2020-05-12 Office Brandt Blanc [facility] [id number] 13:27:27 14:12:27 Visit Chuan AMBULATOR [id number] Y [id number] 2020-04-22 2020-04-22 Emergency E MHBL MHBL [id number] MHBL 19:33:00 19:33:00 2020-03-17 2020-03-17 Appointmen JOELLE STORM [facility] [id number] Univers 12:00:00 12:00:00 t; HECTOR STORM lty - ity zechariah YOUNG M.D. Internation Tim martin M.D. al [facility] Phys [facility] ans 2020-03-10 2020-03-10 Office FELY Son [id number] 13:06:29 13:21:29 Visit Elva [facility] [id number] IALTY [id number] [place] [id number] [facility] 2020-02-09 2020-02-09 JOELLE López Orthoped[facility] 68 [id number] Univers 11:00:00 11:00:00 t; BRANDT at [facility] [place] Radha BILL [facility] BRANDT Orthopedic Phys ici MSantosh and Spine [facility] 2020-01-27 2020-01-27 JOELLE Cabral [facility] [id number] Univers 15:30:00 15:30:00 t; HECTOR STORM lty - ity o f SHAOJIE, M.D. Internation Tim martin M.D. al District Phys ici ans 2020-01-01 2020-01-01 JOELLE Radford [facility] 67 [id number] Univers 09:50:00 09:50:00 t; GARRETT GROVES at [facility], [facility] GARRETT GROVES Orthopedic Ph ysici and Spine [facility] 2019-12-23 2019-12-23 Outpatient E MHFB MED [id number] MHFB 17:36:00 17:36:00 2019-12-15 2019-12-15 JOELLE López Orthopedics [id number] Univers 11:10:00 11:10:00 t; BRANDT [facility] Radha BILL [facility] BRANDT Orthopedic Phys ici Radha and Spine [facility] 2019-11-27 2019-11-27 Layla BILL [facility] [id number] Univers 08:00:00 08:00:00 t; josé miguel CARLTON M.D. [place] Adrien CARLTON M.D. [facility] 2019-11-27 2019-11-27 Outpatient MHFB MHFB [id number] MHFB 06:50:00 06:50:00 2019-11-10 2019-11-10 JOELLE López [facility] [id number] Univers 10:45:00 10:45:00 t; josé miguel CARLTON M.D. [place] Adrien CARLTON M.D. [facility] 2019-10-27 2019-10-27 JOELLE López [facility] [id number] Univers 11:30:00 11:30:00 t; josé miguel CARLTON M.D. [place] Adrien CARLTON M.D. [facility] 2019-10-23 2019-10-23 JOELLE Coffman [id number] Univers 12:45:00 12:45:00 t; ELOISE DAMON [facility] ans 2019-10-16 2019-10-16 JOELLE López [id number] Univers 10:30:00 10:30:00 t; josé miguel CARLTON M.D. [place] Adrien CARLTON M.D. [facility] 2019-09-30 2019-09-30 AppointJOELLE Cintron [facility] [id number] Univers 15:30:00 15:30:00 t; HECTOR STORM lty - ity o f SHAOJIE, M.D. Internation Tim as Radha nh District Phys ici [facility] 2019-08-24 2019-08-24 AppointJOELLE Logan [facility] [id number] Univers 14:30:00 14:30:00 t; HOLGER PERAZA M.D. [facility] Richard WREN M.D. Orthopedic Physi ci and Spine [facility] 2019-08-13 2019-08-13 JOELEL López [facility] [id number] Univers 09:45:00 09:45:00 t; BRANTD [facility] liberty BILL M.D. [facility] BRANDT Orthopedic Thea nichols M.D. and Spine [facility] 2019-08-07 2019-08-07 Outpatient [facility] [id number] [facility] 10:04:00 10:04:00 2019-08-07 2019-08-07 JOELLE Coffman [id number] Univers 10:00:00 10:00:00 t; ELOISE DAMON [facility] ans 2019-08-04 2019-08-04 JOELLE López [facility] [id number] Univers 13:30:00 13:30:00 t; josé miguel CARLTON M.D. [place] Adrien CARLTON M.D. [facility] 2019-07-13 2019-07-13 JOELLE Dave [facility] [id number] Univers 13:00:00 13:00:00 t; ALANA HAM M.D. y - i ty of Radha WARNER Physici ans 2019-06-23 2019-06-23 Appointmen [facility] [id number] Univers 11:15:00 11:15:00 t; josé miguel CARLTON M.D. [place] Adrien CARLTON M.D. [facility] 2019-05-19 2019-05-19 App[facility]men [facility] 58 [id number] Univers 08:00:00 08:00:00 t; ISAI at [facility] of JOCELINE VILLANUEVA [facility] [address] 2019-05-08 2019-05-08 Appointmelina [facility] 58 [id number] Univers 11:00:00 11:00:00 t; lilly CARLTON [facility] liberty BILL M.D. [facility] BRANDT Orthopedic Phys ici MSantosh and Spine [facility] 2019-05-04 2019-05-04 Appointmen [facility] [id number] Univers 11:00:00 11:00:00 t; Anish VALADEZ M.D. [place] Adrien VALADEZ M.D. [facility] 2019-04-20 2019-04-20 Appointmelina [facility] [id number] Univers 13:00:00 13:00:00 t; OTTONIEL CHAU it y of MOUSTAFA, M.D. [place] Radha [facility] 2019-04-16 2019-04-16 Appointmen [facility] Multispecia 5 [id number] Univers 13:00:00 13:00:00 t; Radha CERVANTES - [place] MARC, M.D. [address] [facility] 2019-04-14 2019-04-14 Appointmelina BILL [facility] Orthopedics 57 [id number] Univers 14:15:00 14:15:00 t; lilly CARLTON [facility] liberty BILL M.D. [facility] BRANDT Orthopedic Phys ici MSantosh and Spine [facility] 2019-04-13 2019-04-13 Appointmen [facility] [id number] Univers 12:00:00 12:00:00 t; HECTOR STORM ity o f SHAOJIE, M.D. [place] Radha Physici ans 2019-04-09 2019-04-09 Appointmen BECKYJOELLE [facility] 5 [id number] Univers 07:00:00 07:00:00 t; Radha [facility]ANTES [facility] Radha CERVANTES [address] Physi ci ans 2019-04-09 2019-04-09 Outpatient MHSE MHSE [id number] MH 06:10:00 06:10:[address] [facility] 2019-03-26 2019-03-26 [facility] HARLEY [facility] Multispecia [id number] Univers 11:30:00 11:30:00 t; alex HACKETT M.D. Electra ROXANN Braga Physic i M.D. ans 2019-03-17 2019-03-17 [facility] LANDY, [facility] [id number] Univers 11:00:00 11:00:00 t; josé miguel CARLTON M.D. [place] Adrien CARLTON M.D. ans 2019-03-05 2019-03-05 AppointJOELLE Almeida Multis[facility] 5 [id number] Univers 10:30:00 10:30:00 t; alex BULLOCK APRN ElectraAlfonso, [address] Physici JOCELINE [facility] 2019-03-03 2019-03-03 Outpatient MHHH MHHH [id number] MH 11:36:00 11:36:00 2019-03-03 2019-03-03 Appointmen CARI [facility] [id number] Univers 11:30:00 11:30:00 t; TADEO ALCALA i ty of HARINDER, M.D. [place] M.D. Physici ans 2019-02-10 2019-02-10 AppointJOELLE Niño Orthopedics 56 [id number] Univers 13:45:00 13:45:00 t; Darlene CARLTON M.D. [place] Adrien CARLTON M.D. ans 2019-02-05 2019-02-05 Appointmen DOTTYJOELLE [facility] [id number] Univers 14:00:00 14:00:00 t; HECTOR STORM lty - itjc YOUNG M.D. Internation Tim martin M.D. [facility] Phys ici ans 2019-01-29 2019-01-29 Appointmen CHUCKARVINKINSEY [facility] Multispecia [id number] Univers 15:30:00 15:30:00 t; alex HACKETT of [place]LEY Garcia Electra Alfonso s , [facility] Physic maryanne Garcia ans 2019-01-29 2019-01-29 Appointmen [facility] [id number] Univers 15:00:00 15:00:00 t; Dede HACKETT M.D. [facility] PARSON i, M.D. ans 2019-01-23 2019-01-23 Appointmen JOELLE PENA [facility] 5 [id number] Univers 14:00:00 14:00:00 t; Radha CERVANTES lty - ity of [facility], Alfonso s Radha CERVANTES [address] Physi ci ans 2019-01-14 2019-01-14 Appointmen COREY HOBSON [facility] Multispecia [id number] Univers 13:00:00 13:00:00 t; JOCELINE HOBSON lty - itjc NICOLE APRN Internation [place] [facility] Phys ici ans 2019-01-14 2019-01-14 Appointmen JOELLE CHAPA Non-Invasiv [id number] Univers 10:00:00 10:00:00 t; LARRY CHAPA e - [place] i ty of [facility]II [facility] Physici ans 2019-01-14 2019-01-14 AppointDONOVAN RogersT [facility] UTP [id number] Univers 09:00:00 09:00:00 t; josé miguel CHAPA of [facility] Physici ans 2019-01-14 2019-01-14 Appointmen JOELLE BUENROSTRO Pulmonary & [id number] Univers 08:30:00 08:30:00 t; CASTILLO BUENROSTRO M.D. Sleep itmyla [place], [place] Radha Physici ans 2019-01-13 2019-01-13 Appointmen CHUCKJOELLE SANZ Multispecia [id number] Univers 08:00:00 08:00:00 t; alex HACKETT M.D. [place], Tim as , ROXANN, [address] Physic i M.DShahla ans 2018-12-29 2018-12-29 Appointmen COREY HOBSON UTP Multispecia [id number] Univers 13:00:00 13:00:00 t; JOCELINE HOBSON lty - ity o vidhi NICOLE APRN [facility] ans Results Test Description Test Time Test Comments Results Result Comments Source Tissue Exam 2020-03-07 11:46:00 Test Item Value Reference Range Interpretation Comme nts Case Report (test code = 104) Surgical Pathology Report Case: [id number] Authorizing Provider: Sydney Gonzalez MD Collected: 03/03/2020 02:37 PM Ordering Location: [facility] Endoscopy Received: 03/04/2020 08:23 AM Services Pathologist: Chani Rincon MD Specimens: A) - Duodenum, biopsy B) - Biopsy, Gastric, random C) - Polyp, Gastric, removed w forcep D) - Distal Esophagus, biopsy E) - Proximal Esophagus, biopsy F) - Cecum, biospy G) - Biopsy, Terminal Ileum H) - Large Intestine, Colon - Right/Ascending, biopsy I) - Large Intestine, Colon - Transverse, biopsy J) - Large Intestine, Colon - Left/Descending, biopsy K) - Polyp, Colon - Left/Descending, removed w hot snare L) - Large Intestine, Colon - Sigmoid, biopsy M) - Rectum, biopsy DIAGNOSIS (test code = 3220) k6bybXFnBTDbr0lxSICxwZEyCtZhRuCpAlPrOd pcd MSeBSwbopTeDUdsy7RdQ9ClKiKjPRsrlqYxFEOkKn zktxsxZYCxDTM0xxDyQZCoOYynOEMwQYykHu9wzLY rsEokBlMaDCMff5byupNAzlhlyTz3o7jcAQRzSfX6 iRQpWSqvH1xwtrMtyILfHDPaVBv0fTfsDlFvNUJma 28xmjEjPxYkXYXqAAPcZGQrrEIvZ635m1vuu7kgpy JynNP3BLMzIYCjX8DoQL6kCIZkmUBnHImpyjPqLhW 2IRoxZMGwUwI3LDRvqUDhEAJbY9jlDOHgOMmvolXn heL6FQAduTWmGIM1tRqpm7M6fPMlvFXufVleRkRaL zMvRKBXq2HzUJg0jUbbU9VvZGLvPaL3dESoKJKqXP zfUBGiKRKybaY0kB29VPzfakF8bITyq8Fkj37ny08 2qU5hnXDgEML5MWBnZHHfpZFwMJBcBXS6BUTdgWOa V3a7ArEegIEaY1Q8JyBqoJVqA7T3SfLocZZeK3I9K zWxvNJcWXEukPEvFj7viOAcnLYnwb4mgt41EEW9t3 GjvPjhTPD8UII4RjTpGq3beQKhFJSsDE2aAqDkcRK oMXTzqe31bHtfGNqiphUijK2aHvCmKM2hkLsox96l TGJjNA2wxI1ohi0ykzIrBSkvkTAarGX3hgxfBJT8Q KAlyxWdz0Zyw7qfCpMsfaVoY5rbJ0NpVOWdFTOwQE UzEuGwshFky9Zbk1LixDOqgQd6i2ymJLWgFBAtzHn ww6nnZDO1VGZeR7K0tBIsr8jbHEzxIPCgpGC8fjzr PWktASBasbY0vffzZFocIYDqqWP5zlxuEUqhTVMiD dV5kgazYEtiREGyMNI9ESrcw169HAL0EWnmDvheKI dlXHBnbmNvbnRccGduZGVjXHBsYWluXHBsYWluXGY rJBOiZpJjwAdszLuztQ7rBlNfMlClNQkuzXTbokug MVxmczIwXHBhclxwbGFpblxmMVxmczIwXGxhbmcxM YFbZFoqN8lwVlXtMGSrlUdxOWpoc0XhAYPzWFRcL3 uuvvZbDWQoCCEJD7DOEnEEKGHSET9UB4m4VTGvfzB bOBUoSURabCwihA0zKnVsGcXnDPgqSV5uNBFvB7kd dTSkKRIcROFqW4xhPqBojQ3avIsaAtnhIhRrDhCkE AckuGMngOAMAY0VKW1NFEDKIFCFP5PnO3cCRFEQSc SRMIUIIJJaDjvECW8RFzHJCdZZXTKPQ8JAAlVwBN0 NTL3GKUTDX64RUrvPDZ8WGNvnaO3hEXGvHRovEECq XGZzMjBcbGFuZzEwMzNcaGljaFxmMVxkYmNoXGYxX VfyQ9wtGpWmK8WcAAGeZkXxQUUqBKIvZDVdDEhkYS YyXGZzMjBcbGFuZzEwMzNcaGljaFxmMlxkYmNoXGY pXGgtF2peQrOxS1FzRQDqCdVtgBLnP3sgWHyTU45Z H3IBByTVYKCKEcEUDZ8ZROJkJEjnDNBaCUOrPzKtt CGvRqOoRrMoeEvomPptDOoqVhMzHSVaFBmjA2fcPp UgO8IgJJBlOzMkFxztGJPaBMBiGO3zYbBLJNQXEwD iJg9MRNISSGPPJqQSRE0ZGKFZSIjTEcICSSWOSKXP LlxwbGFpblxmMVxmczIwXHBhclxwYXJccGFyZFxzc 8McuvYuvYxkSEGqFSj2oxKitkpkfRi0fIWwuOqsMY VyeAubiL9xEvVvLiOtTXxkyJKmvouzCMlustHnSOS uOKzpyGPyelbsCGxvyiPtZDudpgqzOVZjNEloG6es MfXoPHBzwFieGNnjm1ZiIXOxWUAkFKnmdlHbDIf6k wDgQEGYL40JD1lvTOXlWYgqNNNhSEArXbTiWXkibG LcsuygTBpzrdJeAMjhndcdINUpIQaeW5mgQbMeNLS avMrgUHbhb9GqVVTaIZAhJTozhjZjTKk1xvIiUCBC R4UMUEXtELmtJWGsOKRvHjDmWXecyIQpkmkdYQpya mIlSOpcqllcOBJhKAmsM2ivUnLzQWIvrGwiVKlhq7 LoZFJuEINgVSiwksFoDZq4okLuMXkerCDcEQDdTGm uXGYxXGZzMjAgICAgIFxwbGFpblxmMVxmczIwXGxh ggayJDMjTOvlW3lxFuFjYFLqyHchYXuig4AqGYIwT ZGhVDqkboTfTQx2vfGdUH2wyQbzdV8sDlZxCcUqBQ RwJ7JPVXCDXtOGFMsHDIiWNHWPNDSEIgYFWWzjlDr arT8xKzSoTrJpGQtjAB8iWYJvQ9blsELuNCPnGRTm S5fnYnLenM3ypIhtIUgjVuEoTpOsCCohcHXljXCbI DYGI0GKNAiYNHuiJERoRWdbMYQyYPCmWpYdcTLvGy OgCzSxpFvfzAvvJykkVuClXFEtYOtzJ0liCzSsG9Z rDVSuLrLtrQNmM8dcLl5wX1pLUawIRDBADtVrUVjE I03VV8QNIlVWNDXWPcOZXK9CFOLgFAdzDYVxZIOpT jBcbGFuZzEwMzNcaGljaFxmMVxkYmNoXGYxXGxvY2 yfKeNeZ6JpFJDrPtEaXdilrYDpavwfKMzmegVoCUE hciAgICAgXHBsYWluXGYxXGZzMjBcbGFuZzEwMzNc tSysxSajUUnqNdJkSCRxULxtK9vnLdYaJ0YlZIRaC nNgtOVjH5jvJYyjlHZlorrhLPcdyoTtBLEfoCrncT 4xOyDqXhUpQQgzOY9zPZJzK7otcOLuTXUfPJEuU4l lKwLdqD0oeGucGOmgHeQqLeSpTMxdbCDgzCUTQFoL LMlZHMGRO2VgQNMBMNBZLjWQOIOHPLVIUV8IPSXWD ytYFxkKFNHhUpbaE0PAUJpXHqUAEMTORofcW9HRFY 8aaGhpjM9qArYrVgJtVABmPHLfONigIWCnWXChQtH qnGYcUhNeBbSjxWpvqQsgWOreObWxJFUrNBoeG4yp SzDuC9FaFUIlFuNjxFMrT6awhWRjVYRvbrSpw6AmT OGvYGT8AWvlIRpseJkrcGGbunmuJYdjmiDsKVCdAK luXGYxXGZzMjAgICAgIFxwbGFpblxmMVxmczIwXGx giuxwCBGwLCfrE4ijHiFkGTAofRhmGXzjs1OiZWHv DTDyYOrldoGmLTf1sfHxFW9qvTedmA1yBkXnCgMjS OXkMwQVMNQOPcVwfRzroM8bHpMwGqGeMThnNN4wRK XaJ1qfkXOaCKMcMAGhZ4vpUuNjlN8feExzIGkhDmF aAfVlSLwglAJfoVDwQv4WPRMaTDlcPDIdIZTlQeQf ULzjmHWcqrkmNYgxtuFvTActdrlnBETmSBtnR9grM dDuKQUbdRvuVAbmr1EcONAbSPOdNAxlqaVkJBj8mp NoIElOVEVTVElOQUwgTUVUQVBMQVNJQVxwbGFpblx mQLvtycWuOMnaoUfizP2vTbXzXdBpWQuyRF6zGSMn C3gisOTjLNPmXESvU3jmFiEwoJ3cmGquGVcfWyBbN nAuUXcfnCIclHDeZMgXGWpYE7sLWNJjGMxsDLUnCR BdTbTyQF7KIPXnXNzdFKNnCGZnCuEyxAQkKjNcUqB ogAydiWllBWgePuUyQSVdXLfiG6nzMnYzK0RjYOXn OmIiiGFwR9zwEA4CNZlJNcLLG5lkqYwpwY4sKcKdR dBiROUyJSMdplsvKNRgzXGqEIcyz1UvtoBwrOqhHL BrHNv6zbCztnzloJr7fHVygMktXYGbwOiphS6uBaC cZnMyMFxwbGFpblxmMVxmczIwIEMuIFxwbGFpblxm OZsbqyLpAGegathmKGNtSBdaT1ghQrUtLRDslFxlB Haqd5MxPEFhNPQeGBaiepRiEDt2nkDkYZFYM29YX0 mfXHJvJObgOQBaNWTxJwJsJVTGHCiFUFPZU7lWXWD NAH1AUTvyfOxhyA4aXjCgHaPbQOtoPX5uTZYgY0dr yCYjNAKzIMZqT6ysQuOtqL2fwOodUKfkSnRzDoAgK FtjpJYhwHweIHBmuRuoaT4yKnEyTrZpIDFcAOObTV BsYWluXGYxXGZzMjBcbGFuZzEwMzNcaGljaFxmMVx mVcZvCXIqACzgD3buUeMgJ3RbAUQzJqCdjXZzY9yu LVxwbGFpblxmMVxmczIwICBHQVNUUklDIEZVTkRJQ zMEKSMDKGBWA2gAEJ7osRFrDEOnAFRjzSvokK4mAw NzGtJlBJabCF1gPTSoV3lfoJVgBJRfEBXdQ0gqQvS zfS9xjNrdNNarAtEaHlVkEAlfcLOjpKCtRFVeYVjf XGYxXGZzMjAgIFxwbGFpblxmMVxmczIwXGxhbmcxM WLdZSjnV6zmYiAdHLYrrWrwGKmwz7XzEEZrUEGgCL acigSyNYz7czVdDV5QB0TWFRICKLJQSuGPPRjVQ68 WZYHLYESyVMrRF4HLDD1UI2WDBIKILuAFOSSCKNNT SElOIFNUQVJSWSBTVEFJTlxwbGFpblxmMVxmczIwI G0blCaoqN8kGwUkBbNnETbvJJ9fGIGqF2apvUQmPP YhQBKeU1enMsLhiC7skLbpZDgwDwUiJcDzJXuwuFS soPpnMRBdqNFzIOihx0IfdyFciHckQEAhYGUwFBMd PXlaQXFkTAZvGwPxnNospK2pIfGlLcJkKGQxCDTnG HBsYWluXGYxXGZzMjBcbGFuZzEwMzNcaGljaFxmMV weFsTpXVZpRDoeM2jaUzVnE6SgZERlUuUzlYPdV6j gLVxwbGFpblxmMVxmczIwICBORUdBVElWRVxwbGFp jkudSGknfvCjYUservgqYYCuMImgW0piJdRlTAMiz WmmWPegr9DsWEVcJPLqGXvgviPxCTu1yaDfWKGCO8 YquRgghW4kTjWgVkCxDVErAWFtIVkdCIHlOTQnPlD beYPlXeZzKjMonNrtpPwfAVgnBmSqYFYlVYuwY6va RjWsY2KaHKAlBxHokRCcF6tiBS1GWLWQIA8LZRCPK MRRFBjCK5iFLHWeEHiwLITmGPRgXrLoUMyufCOxqb vkKPwmztIvHTxnxiopTLYeZNemV9faVeSeGFJzwGx lSSlhb9XgWUXhFDGnDIearcLcECo2hjGbSCBNFYJK QAIEFSHndBeuhC1lBuZeLoJhSZJlW2VazQizhK3zL hYyFuZfFFmoJU5zLHAlP5hczHMiDTMfXDJkY7mvGy XyfU4zfPagSEjvGuCnDyZjQJvlcAPfkCBnHVGGXRy APW8TLPngnZKdhotfIBsnouIgXV2vaRNeACWaoraw HEChKQFqQHxsWSPoWPQqChMjsVpvuO7sFwJsKuQvV IIMIkKRC67GVHZYYJLqRKAEG2YLQMspXchAUESINs dbVXZiVCJqYR3dI8RSZY9PCVLsDNSNAKjNDVaBDIF XSVRIIFxwbGFpblxmMlxmczIwXGxhbmcxMDMzXGhp C5wcScRpQQLzjTcfIjaqi4HwCKWhLOGzJ5lxonHmK Sm6lwAvTF5FTUFMS35NPneWIA5XWAVDZQfSC1FVQB MgQUxURVJBVElPTlxwbGFpblxmMVxmczIwXGxhbmc iYWGsJTtaU8brZrCvROBfrPcgPGahq6JbWFQuMZWh Z4wjfhFiYF2ncXlcwE4yIpXyOpKiBJvmFIOwnUlgx VqgvB5nTlXqUzBaCGsyvJIgdjcoHLrjkyOeKQAhLA WoNG2US4OCVFIKDXWMEnSSEKCHBWSUMtDFYDvUGXG FAXXNJV4BNZGFK1jKK9UPCBoVYxEAJ00ZRWQPIICB Ut6jqTCqXEIgDLFfBZ3IT2HVMGNNNPUYKyCMSsEOX 3ZGGhBGVC1ZQSSYDYYECLZgAVYLP5KOPNLSKY5nEM QOBMtNVK2LXD6zlPPnGKEnxiznLQTiYFXuFZuxAEH cSWAfQiDboKaqqJ2cAnVoMvGwQXKUFzYEE32GQCWJ HQSeDWBVZ0lLLFAKHJKGGB8RK8j6VCEgnwCuKQNnK ALDFbMSOTTOHTYKIFHVEVMCZG9QHtQOZUjGCKCXXH CYYtekMPCyQVIkKHQIUZjMOVxEPBOBY8CsQmSWOCC GQVYqD9OKW3ZYNFtZGOCBViLLU8URXi2ZLAdXLNRf SVNDAUeGE9hZKTGjAOXgjwoxzJvwoOLpdcrlSRjhf zIwXHBsYWluXGYxXGZzMjAgICAgLSBORUdBVElWRS NRP2YxKU1INAHIEP0BPRZNBGXSWLzAG3wCGuMEMWZ JHJYOJHKpFA3WUJsEMaEKS8bhMPGozngnCHQimIRk ZFxwbGFpblxmMFxmczIwXHBsYWluXGYxXGZzMjAgR u5uQ9HQMY5hZHIDAwUPRWjqTohFCLVCXbczKCLwoB lzuTpyxB4tNxZbDqZwPRomoBXbaqarFVeastKrKKS eER4uF34BO71JLaMYSQFAD3BdO5dDHZYdiKcpqR9h UsLcOvFnODbdGJ0eUCOzN5vuzEDnQXDqVEEtM3rqQ uEknO4awNgnNrihKrEeIkEdLPtuhUDtpRWESmYWYL lENEKVB3GDPFFTEMXTCh5NORnSAFMIYKEVNQDFR23 fqWdfrY4rIlLtPuRrVUxqOM5bDLQsJ5onaNTlSUId ESAjU2fbGxBjsE8ipDlmAWmnWnOrVtIaUSYcKVJpp euvjKApkeubABfesyBpNMKcZX8hXtFUEQSZJcJwZq 2QIBXDS3OXZQGHBKULJfYSAQeYU41MJwLSRgdjSZK lvGHqSFhpAUZPRe2XEdEKDBfmfIMnmdplNAzzzjOv VJgqqwwnDSIpRGtjA0yzCdMtYOPdiOmnPOgft3VnY LTvPQDzH3qoytFxDAlAWFERAGEZTM6AG2z1OICyPS vuDOMaAPJpRrXlgZXqLWLcPLOzBIeUZWLCYC5VE68 TQSBXSVRIIFxwbGFpblxmMlxmczIwXGxhbmcxMDMz PBskY6mvOyUsOIBliLjbKtivi7GlYLLaQWZsA6qhj gIsGFz7nwHlYO2NPUOSD21DJdqREZ7POHQQLRpEQ1 NUSUMgQUxURVJBVElPTlxwbGFpblxmMVxmczIwXGx fxvozKBMqJGjgS8pcYbQxKTFdnSelCKdji2NtPBPu BEGaC4dxpiBkOD4gvHyiwR2cSzSmFoGuASgiLWQjV GVsTS2dSgEBDACRFcGsWo0NLDRLM9IWPGWJEKVVIz DJICzXF56GIvSGVmvcIHChmASoOQPgtbQkrIztvP4 pTaMbPkBrXTvsiZAxvvbvZPlnqqBbXNlsJTJNNA1B HJDSR0iSW0CTN8DNJWcLTabkNbdQCEOQAtzxSSPrl JzwdBxewM9wOeWxNaMuNFwabPAjkixtNDvwhrXkFI HzGJQrVDPTKH8XGJHaLMWHK2HLFMrPMVcaKDHdVVv uXGYyXGZzMjBcbGFuZzEwMzNcaGljaFxmMlxkYmNo GVDhKJvhR3rbCbCkW9MpYRJmHkEojYOgK0uaXw3aO 2cDUceQYEHFPeVvEEyFG62AM1BSNfSJKFZXLmKHIA 9OXHBsYWluXGYxXGZzMjBcbGFuZzEwMzNcaGljaFx tAGlxZiGaBPInCQodL5szRoSfD7QtOFMzGrIuPkau YXJccGFyZFxwbGFpblxmMFxmczIwXHBsYWluXGYxX WFhQeDgXDSlWD3jRiNBQOBQUaHiNe0BRF6OB1LKM6 NPUElDIENPTElUSVMuXHBsYWluXGYxXGZzMjBcbGF kOwNlBvApjYvphNlrWRjgYmQwOTPoXAajD7sbCrGg P4GcIDNySaTukSEvVRNiNMZxFReiDUEyYFJyMvMue CvhyS1eZpSgXhUbCRPyLASzIJGIDHhRJGaXARVBU8 EgQEnKUTdIK7tIZR5OVG0UUPcDRvZXG0jxRYPekuy wYXJccGFyZFxwbGFpblxmMFxmczIwXHBsYWluXGYx PSZyEnVpMD2jA65MZ96fZDOGAW5KSrCYK1GdZMMVV 1BTWTpccGFyXHFsXHBsYWluXGYwXGZzMjBccGxhaW 5tBpUpGxOgBWKmEHDhIVZWZ6gBItsWEZ1JB40WTKY XSVRIIFxwbGFpblxmMlxmczIwXGxhbmcxMDMzXGhp J6gbInHpCHOzqXgfFoggp6SuQYIsEUEyK4tvxvQnS Nw7rtKtVD2HNDCCJ87XJtpWYG3OOLDZJHkIR9FASR MgQUxURVJBVElPTlxwbGFpblxmMVxmczIwXGxhbmc dTNWwWWdmB2zdGiRnAKTpbVhgPUgdu4MdAKHoOIKu H2giakGvLO4bbEJmCRGiLDqmBXQmEIDmUvMjBSPoK Q3rHjIIIDCIRrAdPo5FJW5ID6VXE7KIVOsHHEVVLF jCXRIjYGXssiTmCHHeQIPIIXkIEGvXMHGWZ7CyTMv BXRzIU2kFIC8DUV0TFWrARyHXS8naUQAkqtfoGPBs cGFyZFxwbGFpblxmMFxmczIwXHBsYWluXGYxXGZzM cEwTq3iY12PL36rLSlZSwVfJMRRD0CZHLmATowcVm oBERWFGhjhHNNgfUtmlYhkxT1qLvRfSzFhASnjuGY fxzcrTYcvmeUuSGOoESIyZYQHGP8YKRSmKFFKL4UC IFdJVEggXHBsYWluXGYyXGZzMjBcbGFuZzEwMzNca AuvsRxmHkqrLbLgWOLhCRwwS5rmGvBlW0ZfKVIvNe NvwUEuI0ewWr7xI0xZMgaWRPUMPkLiFZtKC26VF0A LZhCTAMGAVgIQTC9OJNHcKNcaLSTvWIRbQaYtiCCs YhMtJwRqzEyvdXwxNJimDcOcBIYfIJldF2scLcXhO 8BdFAKiDsEtIbavBOIbeVtxbJ5vRhOhDoXgGOSuIT GlJDSQLVnBFKaNNLHOF8AoJLtZUm8GI33DMPNnG12 LACIVDx5ltILhZKIjUGKcJE1WR2LJNPEREAVBYoWG HPCPMOWUAPDfB0MhPJCNBUtDYL5YPG5znUElPIKeb ykuGYHeEYQmITcaEDQcPKEgVsQxtRhbyU3bKoVfQf ZrJZKHRbFKH2uBGzloCIEFWU6VKWUEWF9WTC9ZAWH ZE3oUKVCGKZ5RHBitsFDgQWHfSNGtOMgyVROhSVGt NaOicOjviS2nTuSyXxEwYYAxLFDePRXHCLKZZPhQP FNFUlJBVEVEIFBPTFlQLlxwYXJccGFyXHBhcmRccG qltG2iZlGqCeTpQQcsmSLgztwdBMzotqPiKTpyLPU KFM1DBZEWWZ3AT67aQMONB2XIKPmgwWMbSLAzGHSt BEvxRVOxEQPgFiTkpQdrzT7pAsBfRgSoOTSgSRUkC LLXN4uNXczKRW1BU97WWAKTJUSTMLsfgXKyrvatCp uvyeHlXVstrhygJMLjEOipA5viIjTrTWUkdGamFxn go6UzSYUmIUUaE9tayrXdWQv4noVhTB1ECJSVV67O YusXEX2MVPORFMcGL8ZDPHYrCSqJOBVGTKsWReysa HMeamqcMRnkuyAmOQpgmvinETXtEGcmQ0wnXjJdDX GtyIkuCRqps8CdETKzWJJcI8szkmWwPX4bqUZuEXK cMQpvPCZoEZDcMsDpXCBnJK6hSgOTMVKPTaYsJl8F GT1LB2IMM4PXQWmRHGBXONvABRKsKDLuwlIdCNTfX MLTOHhNPMnDJPNES7JzDJjNNRpFG7iGBY4MKH4ZFE fVBnXJX0afONDqfffxDEZzvVTzAZiylCGedwtsFGz mwcMgWIHzGGkpJGDpVEDcTyFcGB2oLwRHWBIVMKVS SU0OK3l2IVEgvksnkIbnoHZxobvyTFazgpUrMUZsI ZbgVGHeYNOiFrJyOOLoSF3dMsRUOLQSZS1HW52LJC BXSVRIIFxwbGFpblxmMlxmczIwXGxhbmcxMDMzXGh cW7mrLbZcKQRudWpuRyahl7FhJNBfCNRjQ0swwvXy PSk0sjXvYG1KUDNGE21THckLEA5WCUYBPVhJV2KUD UMgQUxURVJBVElPTlxwbGFpblxmMVxmczIwXGxhbm dpMJQtGCuhO5dzPkJyTEThzSunBNkyc5UwVWWuLDV nN9nccfZpHY6gwWCdVKSwRWroPJZbITBuHzKdNCYo SV6uZuQPIWNSQrChFl7KBFCPF9FYPBFVRARFJdPWH ZsLU88JOhVOHubbKZWofXAyCTJpvclfXSL0y9ekdQ YxXHNzdGUxODAwMFxhbnNpXGRlZmxhbmcxMDMzXGZ 9rjQxEINkLAbgCKDgFFtzHx0hpZSgeFvfByMmVDNe l5nldpTUiuahqSz4n8lsQULyVeZ0bTIeAVfeX1zfo jBrkXBaGCCjZJe6nN65LZMnfK1uqRKkUXxhqeCcXg Y4WLnyEYFqKaT5AQNnkJCoLCYgX1ivZYUzIGflLBW kPGywnMBpDSG4rSyru4R9zJXihBYpfOllMbGdCzDu RoLXr7MyHEs4qDdlD2OwTAHwZsG9kZSiHMKkDCosG EEzSOIrtjN0sG06EHobicG1rFXvg0Ndm14uq548kN 1vzHGwYDG3PAHwCXQlxZOwBQMhVOP2IQPexRUnY3m iDHPgPD7dpklqINslGOorFLOlmHO3UZUiuKWuB8Zw VJVbKYbkSQXkerj5SiQgTz8fdBAdnVbdZNdsh9qyd 6ndqTXlTnf7NHAtHwBmPybqHHyir9Dsu5vzJXTmsk 4cNHO0qXEenOfym2N7jMZxMCKaeZFzDWBwIG9jtLA xNXBhyE3dgzkcOKDsDoPhjnauVLKqnOuvsfDqNr4u tPclWKT1QNhfF0gmuU8vWfQ6RJwpH9lpcH1hWPn9T DnaQQAevJU7hmB7BBZxyQGrF5VggQ6lUQDlPZ0tks e5u0gsTZC7JNbbATIpHrL3eeA0LAYwdBLmHAMsrOb pBRayp844DDN3ZoVcKFDem1GzM3PnxDhnS25ifPwd G12iNOBdmQmcxO6jtUvzjU9iZaAsOtRlXIrfqGulF M9wVHLyT5algJBgZZJaWOWiY8awRuRcbC9raUmmZE qpztNtBLBtSew3JUAunNYeDKYhMae1CQMpZOOxL91 npwqtERM8yP3xc1kcd8JxMBzlRRB7ZHAjy61uPCrn thU6OOauLl91YXqpBMK5XMgdKDM2pK== CPT Code(s) (test code = 3357) y4nwyQPuORTigDFkZcVfKQNbTEZdr1heHHHn bGFuZ vPwLfJbNgGpHajnlQDjKEFyPfJjv5tdu189pKKkf2 euAIDiUyX8aLLhEAOkiNCxM907n3ylc3ankkArhQV 1HJKfRJP1PVhjfgGtnqJ6GQxabMBkEkA5CMvddkRl GCmhkjLcmkLyElu6DANcT686PDQ7tYcis9jkAZP1N IXsOEKlWsZxDx4suVJhH045XADoQBVMEYBplGg2BO MttwHtphGvsJSRy206O161b0idNJNrtrWjwAqOduc xt6afM483ZAQlrVYqriFcNmIdPRHyeANjiMH7YDKs VO5mmmfxIfDoLO8ujnxtVcZvAY7paai5ByRzOY6ab lheJcTmCJboODAwrfrfNVAgj5ZjkndsNQ4sE0Gzy2 N9vT7anTVeCTOouSEtJyNdYWLtvq6xxGGtUPcnp3Y mYBR1ifS0nHTatINsHFRhDA57Olafv9VgEpycLBR1 CSMiszCnd3Qfc1bnZvAxymJpE2smR9XtIIMcCOIeX LIrXqLcwnEzo2Gjn4QwbDNtsMv9t8ddVIMeAZEkqJ bbr0gnFYZ7NEQpV4A2eCJva9kkTUvsDWOmoUH2ysk jGNfnIBFewxM8jpmcZAwpMANqvJM3oslkCVxuQPMr UfT6hzphHYliVFShCUJ9MSozu682GFI8IDyaUnkzP WdlXHBnbmNvbnRccGduZGVjXHBsYWluXHBsYWluXG BuQEUkBcIzjTzxdXrfzO3oIlMqWlEaCHciBN4pWXT gL3aitFDxYEIuQCHpI7lmYwVypS9ipNfeDUakzePt RMc4SeQ0NGbqXFWxJRj8WcJjELclKpgzJAO0 CLINICAL HISTORY (test code = 3356) o5glxQQgXPAsgGFmNxThVOQeJJOtj3j cZGVmbGFuZ eYlUgOuEgRdFmnnyPKqTVQlTsEus3vmu482lQQjc8 awDKMvLdR6tCPkGSVtjZZtP825a4xvc8rdciKsiCH 5IRGhKQL5KRyhcqLbndM1XUxvvIVaYzI6VBpethIo ROhpuiSfpaXzVru7DQRkH015RGW9jPlmb4ohAGP8S VUbLPEzGpBmPf5ihKEgN494BPQkSUKOUPTmjWy9DN SksdUvcpUupQHEk737F344v2ybZQTkqhKglMwBwcg mt2soX993JXQorTOhrfGgAjUsPAItjZYpuHB4CDSt BQ2puwrrTeHlXR2ztjmbNtWoEQ9njci9AuQqWZ1on bjyFbIaZKhrITNijkutEKWpi2YxqmehSR6gT1Krr9 J0aJ3ydXYwGPLcyEIkVbKrUTUvhu2mbNAeQLpye9T xQKP5ymI5mVHfyVThVQTrDK08Emyjr0DhXzazYMB9 CJOjvhVwi2Xek7mbMuWjyjTfC3czF9ZnJKLmARGbD XEiFuEndiScp6Tzh5NhkBObwOx7w0glCVSePHMgoP mlb1uiHFY4DGHtZ6F3nFOkg9pvOUoaXZTbwTU2uua nQCnrQIKchpN0gqnjVZbrGEAyxOD6ibllKCmvHOVm CgW5jneaDUmmLCEmVYA6OCwet379YEK9YZroPdjuR WdlXHBnbmNvbnRccGduZGVjXHBsYWluXHBsYWluXG GaUHIyIyAyjMjgfJhnaX1wOzYtZjCvSQlaGA1vPCD bP8hknVGwVEJuQUWwV9iaEyFdmG7kdLyqHEozfsIs HSOxhrBsruhqDhAwn7XwoucrHVpoBHzrUIZgHTaza DstURHuvAr4EFEoge4sdSr3kFUpr4g6xUKuUON0QS wgYmxlZWRpbmcuXHBhcn0= SPECIMEN SOURCE (test code = 3377) n4epkQIgTBOhgSPyYxNpLHYfVKPlb0il ZGVmbGFuZ oWzGlDnKmIrRvvxlWCvFCTqNgHhn3jxy150mXAys4 jqHKJnBpK0lZRuTKZfrOXzZ047q4glt8qbyaYbtGF 6LCGrDJG3RJbmytUjfhY8UOhljZDsFeF8JRtwbuMu TBzbjsSdhlDyWve1UBQpO895TKR2oPntv4vjLVC9T BXpYGZaEvOpOt5qmYYbK937DEAlVHGTLEWktKc5JL RkqeTvluTzuAKUn218Q151w3qwPFCsrvPqgQdTzrx cm1oaK049BOZqyQRcbrHmAdGoKVXztEXtbCY9ZUEr UO4ptnvfMnXnIP6flowrMeRnGR2abkm9RnVxYE2ms xluWiHrMRbzXMYcnxqwKWMmu2AojkuoAP3dW2Jjr5 U9hK8rbLLqDGTlbIZpYmUeZEBjyp9chDXqSVmrk0L iQYV2mqP7uQKxvIGoOWPwRG22Vpneu9PsZzgtUOV7 GCLoapFxx5Nod3gwYsBuaoZoC2nxN0DpTUVzHPIzH VGhJlAfuvYgh4Bts9GmbQXplSi8r0jvCNHrVWUexZ ngx6xaQUD7TADdZ5C7iHUhj1bsVKmmKMRecIJ6nyw wERqwWNOnalA6clwsUWwjQSGcbDM2tanfBWqpZWLx UlT7jhmjLYtvODSqOGK7BZnyn613UKZ1LKslNkzaN WdlXHBnbmNvbnRccGduZGVjXHBsYWluXHBsYWluXG UpIZHbEpAqyKwmtLoapB4fObNfKiMjHVltXH3gEDQ fB5lhdWTdYONeBKJwO9xvWuEnuE2aiRfgOMspmyLe HLByNKY6p6YadiYvYMkjNZPlOq8mM0AzaCAzRdMxi H8ih0zjOJKoneJJUuSJHFE6wdnjFQTxjNeoWFXgra TYUaQKhXY3UWrxQWPptWaaC5HaNNBlosLVHlNPaq7 7bE0ipJRhs57xbLHdlFQbgBLxCTZbHYIjY0DeXZCc gcICDvRUaP6dBN7qEfMnSL8juoNsITLgeH2ek1egL UEfzmIVZrWAzCntmB0cs5EycsUnruzzP52xh83zUI BulpNUDkHIfxQco5BclsKyCFBrxG5nBDqqBYDzIo3 yHWCvpJ9rNSAzIF7etK0wTHIehX3lBCgiTDOzIi0v EQHlkB6zEOBhAJ7lbU7hNGYtrQ0tKNOqmDisEUouU TLxHI9pJ4idbW5sHFRnz6xgtqhnCETuYH9cOwJhiO VtIFxwYXJ9 GROSS DESCRIPTION (test code = 3366) b9sbhFUoWGJgwVKaHhNcLNGqTXT ve2htXNOfsSPyP rGoClVtAnJrHktdkJCwDLSaYzAfr3vqg302yEMbg4 ifSOHgZjI9aBQlMOUjtVOrA480ZIJqNLrnp7bya0I nAORbrWKba5T9ZGXPxqqpkUx1hJhvN11do2G7Xpgw V2tkKTRtFHYtU4LpEI1lLHTqGnx6OYN5DRB1ENEkI RDhL2HuJQ8oKQTdjZEsLXk1f4rujFnxFFEuZYK3b0 dpTJtuczOkEY5xcf4tiDo0i5afckAoJLFzQMRdeIJ YZVMoJ0QuuGonSk3chPl0cTpdUbcjBND5Bvk7VT4l oy44fqs2ySvsSTHijvkoCpI0VVzgOLNvhzgkBCz6A FxtYXJnbDcyMFxtYXJncjcyMFxtYXJndDcyMFxtYX [file] GZzMjBcbGFuZzEwMzNcaGljaFxmMVxkYmNoXGYxXG ftX8zrBoOnKdLaRZTVMoIIJPYqhYGpKQScvbXuq9S tYWxpbiBsYWJlbGVkIHdpdGggdGhlIHBhdGllbnQn mvVpIC3zAEHyR9Glg1Emg83akaYkZjFpOVIkJBKyk mVjdHVtIiBhcmUgdGhyZWUgdGFuLXBpbmsgdGlzc3 JsGPYuNQonAM25ysApJGGweFZhvcfdjNFjyN8oJZ8 sLJBbSXetNIbcVWP4BXG3YWUpqLJcl9rdwxkqt5xi I3ztLPUeBTOdtXCoimZxICClABMrcDWwoID2UVVdl Y5pdQ07jgFjncNIIY7ufOvouJ5aFyHaGwOoXJxfCI 3oZITuM8pbaXCxXKQwFVFoM1skWzYtvA9kePveKMt kztAeGEZGFZ2yl9uoOWM5 MICROSCOPIC DESCRIPTION (test code = x6tieOPgDIWpkWBaZzIoZVBoDVA jx5esAMIayJZqQ 3371) oEqQdKoPnLlHltmjMQpQUXhTySel3nxu255sPRfq3 zsGYKmGuC5mNEnMAVdtEGxZ021v6ktx7gcsiDmuLI 7RAGbHIR3IBjmhkOqbdA0DWxxwLEqNlE6RCpzmuOa FKhgoiOeztFhWhr2WDYkU936FHC1fXjre3muUDB2R SZfCJRdGyEvXr2ukQYxX722ZUMaFSYZPYOtzMc4CQ DtecMccySmoOEJy663Q546f7ygBKNqioZswZfCyqi vy3ndL180NCUpyKYhqsSiPwJeLCRxeREvdOY2AIWg NZ8olpsoXwEpYP6rhoyiEbHnLF8ojgm7GtFwPF2jj vwdKdPvZYrrPGXjmftwQGPpu8KiaiivVK4nM6Vvv5 W4wL3wmZXrLMDoaOHmYiWjNJDopg9soENkSImga9N xACR1ytP5uODnjLVaYBUsKZ58Wgvww5LtYovjZVG3 IKDhdmMwd0Gix1cfWsLofzUeP0pmO4CuPBKmELTyF JQgCpPnykStu1Khd5FebFGpeVj3h1mmEMMvUSKchB fwk5dcSNB7GCOeG2H3hIRad1pvFTsbGITvoMN3qtu dFOkyXBTrzgY6mcivFZlgMNKbtGG8kjlqQZsbDKCs ZvQ7tgddLVtfNRFoPPJ1UTlfu620FAI5OPdjInehS WdlXHBnbmNvbnRccGduZGVjXHBsYWluXHBsYWluXG AgKGChNyGeaSpvvTyyiF5jVsUlJiKeYTrpUT3aXQZ bR1yinLXdCSDhTDUgI1wvTpRzcN5spDlvDWcypdQu ENMzawLxim5bGU8liTPdbY== SPECIAL STUDIES (test code = 3376) w6itpSQaUAYbbQNyQoYuQOXmKQKxe1df ZGVmbGFuZ [file] AgXHBsYWluXGYxXGZzMjJcbGFuZzEwMzNcaGljaFx iMPhdPzToCSXkZSgcL1dgGyUqO3DpZAUoYfBojTKn Y2qeaEDqQNIxEWazJVLpYUGpMsPknMZqYnVtDrVzd QupnNxdAZatAqThVZUtXNifM5vuQdWsI7KhWFAfHf FtDO0soL5hfSwolP7zcHPxdPS6jelllNQayR5hY7W sPEIsg2Tkcgqja0DmXDWaaaSymf7wDRGesARDANud t3VcR1CaDZv8x7KvaSqjvZ5oKoTgFhXlAyqxWG7hO QSnJ6dlhMLqTJSlKRNoH7moWuIayY2gnScpDMidJb IuPhFqTnb0CCVvQxKiBmrhWSHkBHjbJPKoECXbWgS qtLZbYfFcJoOzvTqekZtuFJwdRnUhXJGuKNwvK1yr MkDkA6UjVWNsHaBpqqFBJRFpA4UsRLQechEwdwivE WK8yA7it5e4WBbsOr3vALAhejuls6egkkWpbPWkb6 TbRBEophIyc7UsWLBkzbBylFYlQRPvrmEcth9fsmB eWUKkHZGvW5LvnkbikKazgiX7YXZtSSVlwVWtsTvl MLMyFRp9ROhkomDnh7AyTgLipkVoxIXjecGrDM4sC RTngINayxZaDSL9WUBlYWQQRuHaCGAez5VdSW3tGF YqqNsaDSYzjO4dn3IlLKXbf16vISTsHGDLFKUfbIX wYVQqmJUkjYjaWXXzeNegvHNimNItWJJhCCGpSS5i IMXmajUubADqb7KvgVBiudFug2XzgeCmBSLhODL2S iWLdYGjeNZrdPNamxO7w7IbQAPktdSgwDldxWLxfP CgiYIrz3Wdmu2qXBLun3yygTowTA5ahEQzJOXuAWa sdpNpRTXzsrFurgQui6DgP8L9mR2vJEvbp2BnWh1g QDVwe9JlmbYbMpOKiCcfHYrzVt3rJNPrzwwcqKAaA 2VydGlmaWVkIHVuZGVyIHRoZSBDbGluaWNhbCBMYW WyteE0m8O1HAvytADgtsWeTM72SYHkFJ4ouCLjgGI em2WpONk5FTUpH9mHWV35EZidJNTjmDLogXetfJPk PGYcLXEtsfQfaq0ruKerrAPkk13hsOQ9tJK2MELgi Z6wT1JwHNzgSc1nTHQfqognsAWvrMbzDj8xzIkodC 2xHgGiFhUlMnmgCC6fFMEoS7ortKHvPBUrZPFeA7v uFtJlxT0zfXilOfntwqFlOFKwzeedFODkVBHuBEjl TFNmOCQrOqThqRhsdY2hLsRvWwLlGBfcDKV0 Gross assessment was performed at [facility], (test code = 2777) Department of Pathology, [address] [place] [address], Technical component was performed at [facility], (test code = 2778) Department of Pathology, [address] [place] [id number], Professional component was performed [facility], at (test code = 2779) Department of Pathology, [address] [place] [address], [facility] [id number] 11:46:00Surgical Pathology Report Case: [id number] Authorizing Provider: Sydney Gonzalez MD Collected: 03/03/2020 02:37 PM Ordering Location: [facility] Endoscopy Received: 03/04/2020 08:23 AM Services Pathologist: Chani Rincon MD Specimens: A) - Duodenum, biopsy B) -Biopsy, Gastric, random C) - Polyp, Gastric, removed w forcep D) - Distal Esophagus, biopsy E) - ProximalEsophagus, biopsy F) - Cecum, biospy G) - Biopsy, Terminal Ileum H) - Large Intestine, Colon - Right/Ascending, biopsy I) - Large Intestine, Colon - Transverse, biopsy J) - Large Intestine, Colon - Left/Descending, biopsy K) - Polyp, Colon - Left/Descending, removed w hot snare L) - Large Intestine, Colon - Sigmoid, biopsy M) - Rectum, biopsy A. DUODENUM, BIOPSY: - DUODENAL MUCOSA WITH PRESERVED VILLOUS ARCHITECTURE AND NO SIGNIFICANT DIAGNOSTIC ALTERATION. - NEGATIVE FOR FEATURES OF CELIAC DISEASE.B. STOMACH, BIOPSY: - GASTRIC OXYNTIC AND ANTRAL MUCOSA WITH NO SIGNIFICANT DIAGNOSTIC ALTERATION. - NEGATIVE FOR HELICOBACTER PYLORI ORGANISMS BY WARTHIN STARRY STAIN. - NEGATIVE FOR INTESTINAL METAPLASIA, DYSPLASIA OR MALIGNANCY.C. STOMACH, POLYP, POLYPECTOMY: - GASTRIC FUNDIC GLAND POLYP. - NEGATIVE FOR HELICOBACTER PYLORI ORGANISMS BY WARTHIN STARRY STAIN. - NEGATIVE FOR INTESTINAL METAPLASIA, DYSPLASIA OR MALIGNANCY.D. ESOPHAGUS, DISTAL, BIOPSY: - SQUAMOUS EPITHELIUM WITH NO SIGNIFICANT DIAGNOSTIC ALTERATION. - NEGATIVE FOR FEATURES SUGGESTIVE OF EOSINOPHILIC ESOPHAGITIS. - NEGATIVE FOR INTESTINAL METAPLASIA/ DYSPLASIA/ MALIGNANCY.E. ESOPHAGUS, PROXIMAL, BIOPSY: - UNREMARKABLE SQUAMOUS EPITHELIUM. - NEGATIVE FOR FEATURES SUGGESTIVE OF EOSINOPHILIC ESOPHAGITIS. - NEGATIVE FOR INTESTINAL METAPLASIA/ DYSPLASIA/ MALIGNANCY.F. CECUM, RANDOM, BIOPSY: - COLONIC MUCOSA WITH NO SIGNIFICANT DIAGNOSTIC ALTERATION. - NEGATIVE FOR DYSPLASIA OR MALIGNANCY.G. TERMINAL ILEUM, BIOPSY: - ILEAL MUCOSA WITH NO SIGNIFICANT DIAGNOSTIC ALTERATION. - NEGATIVE FOR DYSPLASIA OR MALIGNANCY.H. COLON,RIGHT/ASCENDING, BIOPSY: - COLONIC MUCOSA WITH NO SIGNIF ICANT DIAGNOSTIC ALTERATION. - NEGATIVE FOR MICROSCOPIC COLITIS. - NEGATIVE FOR DYSPLASIA OR MALIGNANCY.I. COLON, TRANSVERSE, BIOPSY: - COLONIC MUCOSA WITH NO SIGNIFICANT DIAGNOSTIC ALTERATION. - NEGATIVE FOR MICROSCOPIC COLITIS. - NEGATIVE FOR DYSPLASIA OR MALIGNANCY.J. COLON, LEFT/DESCENDING, BIOPSY: - COLONIC MUCOSA WITH NO SIGNIFICANT DIAGNOSTIC ALTERATION. - NEGATIVE FOR MICROSCOPIC COLITIS. - NEGATIVE FOR DYSPLASIA OR MALIGNANCY.K. COLON, LEFT/DESCENDING, POLYPECTOMY: - SESSILE SERRATED POLYP.L. COLON, RANDOM, BIOPSY: - COLONIC MUCOSA WITH NO SIGNIFICANT DIAGNOSTIC ALTERATION. - NEGATIVE FOR MICROSCOPIC COLITIS. - NEGATIVE FOR DYSPLASIA OR MALIGNANCY.M. RECTUM, BIOPSY: - RECTAL MUCOSA WITH NO SIGNIFICANT DIAGNOSTIC ALTERATION. - NEGATIVE FOR DYSPLASIA OR MALIGNANCY. Signing Pathologist Direct Phone Line: [phone] signed by Chani Rincon MD on 03/07/2020 at 11:46 [id number] 13, [id number] X 2Screening for viral disease, ulcerative proctitis with rectal bleeding.A. Duodenum B. Gastric biopsy C. Gastric polypD. Distal esophagusE. Proximal esophagusF. CecumG. Tympanic membrane biopsy H. Right/ascending colon I. Transverse colon J. Left/descending colon K. Left/descending colon polyp L. Sigmoid colonM. Rectum A. Received in formalin labeled with the patient's name, accession number and "duodenum" are four webster- pink tissue fragments measuring up to 0.3 cm in greatest dimension, which are filtered and submitted in toto in A1.B. Receivedin formalin labeled with the patient's name, accession number and "gastric biopsy" are two webster-pink tissue fragments measuring up to 0.3 cm in greatest dimension, which is filtered and submitted in toto in B1.C. Received in formalin labeled with the patient's name, accession number and "gastric polyp"is a 0.2 x 0.2 x 0.1 cm webster-pink tissue fragment, which is filtered and submitted in toto in C1.D. Received in formalin labeled with the patient's name, accession number and "distal esophagus" are multiple webster-pink tissue fragments measuring up to 0.2 cm in greatest dimension, which are filtered and submitted in toto in D1.E. Received in formalin labeled with the patient's name, accession number and "proximal esophagus" are three webster-pink tissue fragments measuring up to 0.2 cm in greatest dimension, which are filtered and submitted in toto in E1.F. Received in formalin labeled with the patient's name, accession number and "cecum" are three webster-pink tissue fragments measuring up to 0.3 cm in greatest dimension, which are filtered and submitted in toto in F1.G. Received in formalin labeled with the patient's name, accession number and "terminal ileum biopsy" are three webster-pink tissue fragments measuring up to 0.3 cm in greatest dimension, which are filtered and submitted in toto In G1.H. Received in formalin labeled with the patient's name, accession number and "right/ascending colon" are threetan-pink tissue fragments measuring up to 0.3 cm in greatest dimension, which are filtered and submitted in toto in H1.I. Received in formalin labeled with the patient's name, accession number and "transverse colon" are multiple webster-pink tissue fragments measuring up to 0.3 cm in greatest dimension, which are filtered and submitted in toto in I1.J. Received in formalin labeled with the patient's name, accession number and "left/descending colon" are two webster-pink tissue fragments measuring up to 0.3 cm in greatest dimension, which are filtered and submitted in toto in J1.E. Received in formalin labeled with the patient's name, accession number and "descending colon" are multiple webster-pink tissue fragments measuring up to 0.3 cm in greatest dimension, which are filtered and submitted in toto in E1.K. Received in formalin labeled with the patient's name, accession number and "left/descending colon polyp" are three webster-pink tissue fragments measuring up to 0.6 cm in greatest dimension, which are filtered and submitted in toto in K1.L. Received in formalin labeled with the patient's name, accession number and "sigmoid colon" are three webster-pink tissue fragments measuring up to 0.3 cm in greatest dimension, which are filtered and submitted in toto in L1.M. Received in formalin labeled with the patient's name, accession number and "rectum" are three webster-pink tissue fragments measuring up to 0.2 cm in greatest dimension, which are filtered and submitted in toto in M1. PA/ewPerformed.The interpretatio n of this case included the use of immunohistochemistry or special stains.Control Slides Examined: In-house known positive controls were evaluated along with the test tissue. These control slides runalongside of the patients sample show appropriate staining. Internal positive and negative controls when available are evaluated Immunohistochemistry technical testing was performed at [facility], Pathology Laboratory where it was developed and its performance characteristics were determined. It has not been cleared or approved by the U.S. Food and Drug Administration. The FDA has determined that such clearance or approval is not necessary. The test is used for clinical purposes. It should not be regarded as investigational or for research. This laboratory is certified under the Clinical Laboratory Improvement Amendments of 1988 (CLIA-88) as qualified to perform high complexity clinical laboratory testing.[facility], Department of Pathology, [address] [place] [address], [facility], Department of Pathology, [address] [place] [address], [facility], Department of Pathology, [address] [place] [address], [facility] , urine 2020-03-03 07:27:00 Test Item Value Reference Range Interpretation Comments Test Urine, POC (test Negative code = 8538152) Control line present?, POC (test Yes code = 3848182) Background clear?, POC (test code Yes = 6483929) UPT Cassette Lot #, POC (test code 5292887 = [id number]) UPT Cassette Expiration Date, POC 04-23-2021 (test code = 1101110) Lab Interpretation (test code = Normal 83867-1) [facility] 29 [id number] 13:33:12 Test Item Value Reference Range Interpretation Comments Pain Interference: (test code = Pain 73.7 1 N Interference:) Pain Intensity: (test code = Pain 53.7 1 N Intensity:) Physical Function: (test code = 21.3 1 N Physical Function:) Satisfaction Role: (test code = 35.6 1 N Satisfaction Role:) [facility] PhysiciansMR Shoulder wo contrast [id number] 11:13:00 PROCEDURE INFORMATION:Exam: MR Right Upper Extremity Joint Without Contrast, ShoulderExam date and time: 04/24/2019 11:27 AMClinical history: 38 years old, female; Pain in right shoulder; Additionalinfo: M25.511 pain in right shoulder/m25.511 pain in right shoulderTECHNIQUE:Imaging protocol: MR of the R ight upper extremity without contrast. Examfocused on the shoulder.COMPARISON:No relevant prior studies available.FINDINGS:ROTATOR CUFF AND ASSOCIATED STRUCTURESRotator cuff: There is a low grade, partial-thickness articular surface tear ofthe infraspinatus insertion. This measures about 5 mm in AP dim ension andinvolves about than 30% of the tendon [...] lobulated T2 hyperintense lesion in the proximalhumerus, measuringapproximately 2.6 x 1.7 x 1.6 cm. This is most likely achondroid matrix lesion. No significant perile sional edema. Scattereddegenerative marrow edema and cystic changes.LONG BICIPITAL TENDONThe biceps tendon is normally situated within the bicipital groove. No completeor partial biceps tendon tear is present.GLENOHUMERAL JOINTJoint fluid: There is a trace glenohumeral joint effusion.Cartilage and Bone: No definitive chondral defects.Labrum: No definitive labral tear.Other support structures: No capsular or ligamentous abnormality is seen.IMPRESSION:1. Locally, partial-thickness articular surface tear of the infraspinatusinsertion. Mild diffuse supraspinatus and infraspinatus tendinosis.2. Minimal AC joint arthrosis.3. Probable low-grade/nonaggressive chondroid matrix lesion in the proximalhumerus.Meliton Rush MD On 04/24/2019 13:45:44; [id number] by: Meliton Rush MDDictated Date/time: 04/24/19 13:45Electronically Signed by: Meliton Rush MD 04/24/1913:45FINAL REPORT [facility]] CULTURE, URINE, [id number] 12:00:00 Test Item Value Reference Range Interpretation Comments CULTURE (test code = See Comment CULTURE , URINE, CULTURE) ROUTINE LYUBOV RO NUMBER: [id number] TEST STATUS: FINAL SPECIMEN SOURCE: URINE , CLEAN CATCH SPECIMEN QUALITY: ADEQU ATE RESULT: Multiple organi sms present, each l ess than 10,000 CFU/mL . These organisms, comm only found on external and internal genita steven, are considered to be colonizers. No further testing perform ed. [facility][] DRUG SCREEN,COMPREHENSIVE (URINE)2019-02-11 14:49:00 Test [...] FOR SPECIFICS ONWHI CH DRUGS ARE TESTED. [facility] Abdomen Doppler [id number] 11:02:00Patient Name: TODD GASPAROB: 1980; Age: 38 years y/o FemaleMR: [id number] ULTRASOUND with Doppler studiesHistory: splenomegaly Technique: The [...] right nephrectomy.3. Normal Dopplerstudies as described above.SL: [id number] by: Kwaku Hedrick MDDictated Date/time: 02/10/19 15:13Electronically Signed by: Kwaku Hedrick MD 02/10/1915:20FINAL REPORT [facility]] CALPROTECTIN, [id number] 14:43:01 Test Item Value Reference Range Interpretation Comments Calprotectin (test 30 ug/g 0-120 Concentra tion code = Calprotectin) Interpr etation Follow-Up<16 - 50 ug/g Normal None>50 -120 ug/g B orderline Re-evaluate in 4-6 weeks >120 u g/g Abnormal Repeat as clinically indicatedPerfor med At: BN [facility] [address] [place], [place] [id number] ra Shanthi SANDOVAL Ph:[phone] [facility] Clavicle Bilateral [id number] 14:03:00 Clinical Indication: - M89.8X1 Other specified disorders of bone, shoulder,M79.18 Myalgia, other site, M25.50 Pain in unspecified joint, M94.0 Chondrocostal junction syndrome [Tietze]; claviclepain for 5 daysComparison: NoneTECHNIQUE: AP and axial views of the bilateral claviclesFINDINGS: No acute fracture or malalignment is identified. Thesternoclavicular joints are within normal limits as are the acromioclavicularjoints.No soft tissue abnormality is identified.IMPRESSION: No acute abnormality.SL: [id number] by: Oj Boswell MDDictated Date/time: 01/30/19 14:33Electronically Signed by: Oj Boswell MD 01/30/1914:34FINAL REPORTSt. [facility]] HEPATIC FUNCTION [id number] 14:45:01 Test Item Value Reference Range Interpretation [...] of pediatric refer ence intervals to eSiemens [place] analyzer (Clinical Biochemistry 46 (2013): 9601-2700). [facility] has not internally validated these reference ranges and therefore they should be used only in e context of a thoroughcl inical assessment. AST (test code = 11 u/l 0-37 27449-1) ALT (test code = 20 u/l 0-65 1743-4) Globulin (test code 3.6 g/dl 2.7-4.2 = 57732-7) A/G Ratio (test 1.1 0.7-1.6 code = 1759-0) [facility][H] Celiac Pnl w/Rflx Endomy Ab [id number] 14:45:01 Test Item Value Reference Range Interpretation Comments IgA Lvl (test code = 2458-8) 234.0 mg/dl 68.0-378.0 Gliadin (Deamidated Peptide)IgA <0.2 <=14.9 Ab (test code = 33679-0) Gliadin (Deamidated Peptide)IgG 0.6 U/ml <=14.9 Ab (test code = 71975-3) Tissue Transglutaminase (tTG) IgA <0.5 <=14.9 (test code = 79852-2) Tissue Transglutaminase (tTg) IgG <0.8 <=14.9 (test code = 53816-1) [facility][H] LUNDBERG [id number] 14:45:01 Test Item Value Reference Range Interpretation Comments Bili Total (test code 0.5 mg/dl 0-1 = 1975-2) ALT (test code = 20 u/l 0-65 1743-4) AST (test code = 11 u/l 0-37 41593-9) Fibrosis Score (test 0.04 0.00-0.21 code = [...] Macroglob (test 224 mg/dl 110-276 code = 02327-9) Haptoglobin; Above 208 mg/dl 34-200 High Threshold (test code = 43592-6) Apolipoprotein A-1 170 mg/dl 116-209 (test code = Apolipoprotein A-1) GGT (test code = 18 {iu/l} 0-60 2324-2) Chol (test code = 137 mg/dl 413-085 8813-3) Glucose Lvl (test 96 mg/dl 65-99 Adult refe rence range code = 2345-7) values reflec t the clinical guidel inesof the [place] [employer]. Trig; Above High 182 [...] q uestions regarding this report please contact [employer] service at . Referenc es:1. Latanya Noe. et al. Diagnostic Valu e of Biochemical [...] 2006; 6:34 doi:10.1186/147 1-230X-6 -34.Performed A t: [facility] [address] [place], [place] [id number] susana Maki MD Ph:[phone] [facility][H] CK [id number] 10:21:01 Test Item Value Reference Range Interpretation [...] [facility] (test code = Creatine Aaron [address] Kinase BB) [address] [place], [place] [id number] dilan SORIANO MD Ph:[phone] rformed At: [facility] [address] [place], [place] [id number] Kyle L MD Ph:[phone] [facility][H] Quantiferon Incubationa w/ Reflex to TB Gold [id number] 10:21:01 Test Item Value Reference Range Interpretation Comments Quantiferon Incubation Performed At: H D Incubation (test performed. [facility] code = Quantiferon [address] Incubation) [place], [place] [id number] judith Domínguez MD Ph:[phone] Quantiferon - TB Negative Negative Performed A t: BN Gold Plus (test [facility] code = Quantiferon [facility] n1447 - TB Gold Plus) [place], [place] [id number] ra Shanthi SANDOVAL Ph:[phone] [facility][H] Quantiferon Incubationa w/ Reflex to TB Gold [id number] 10:21:01 Test Item Value Reference Range Interpretation Comments Quantiferon Criteria Comment The Vasquez ntiFERON-TB (test code = Gold Plus resul t is Quantiferon determined Criteria) bysubtracting t he Nil value from [facility] TB antigen (Ag) be.The mitogen tube se [...] BN code = Mitogen - [facility] NIL) [address] [id number] Maki MD Ph:[phone] [facility] Shoulder series [id number] 10:49:00EXAM: XR SHOULDER 3 VIEWSDATE: 01/13/2019 10:49 [...] 13:48Electronically Signed by: Erik Foster MD 01/13/1913:49[facility] lateral [id number] 10:49:00EXAM: XR LUMBAR SPINE 2 VIEWSDATE: 01/13/2019 [...] 17:49Electronically Signed by: Audie Pardo MD 01/13/1917:50FINAL [facility]PORTRiver[facility] HospitalXRAY Spine cervical 2 or 3 view [id number] 10:49:00EXAM: XR CERVICAL SPINE 3 VIEWSDATE: 01/13/2019 [...] 17:50Electronically Signed by: Audie Pardo MD 01/13/1917:50[facility] Knee 1-2 Views Bilateral [id number] 10:48:00EXAM: XR BILATERAL KNEE 2 VIEWSDATE: 01/13/2019 [...] 13:29Electronically Signed by: Erik Foster MD 01/13/1913:30FINAL REPORTSt. [facility]iciansX[facility] Hip bilateral w pelvis and both lat hips [id number] 10:48:00EXAM: XR BILATERAL HIP 2 VIEWS AND [...] 13:35Electronically Signed by: Erik Foster MD 01/13/1913:37FINAL [facility]PORTUnTim[facility] HospitalX[facility] Chest 2 views [id number] 2019-01-13 10:47:00EXAM: XR CHEST 2 VIEWSDATE: 01/13/2019 [...] by: Luis A Schumacher MD PH 01/14/1912:50FINAL [facility]PORTUnC[facility]] URINALYSIS, COMPLETE W/REFLEX TO [id number] 10:10:01 Test Item Value Reference Range Interpretation Comments UA Color (test code = 5778-6) Lucero UA Turbidity; Abnormal (test code Marked Clear A = 80715-0) UA Spec Grav; Above High Threshold 1.032 <=1.030 (test code = 5810-7) UA pH (test code = 5803-2) 5.0 5.0-8.0 UA Protein; Abnormal (test code = 30 mg/dl Negative A 76479-2) UA Glucose (test code = 80970-9) Negative Negative UA Ketones; Abnormal (test code = Trace Negative A 32873-0) UA Bili (test code = 5770-3) Negative Negative UA Blood; Abnormal (test code = Large Negative A 5794-3) UROBILINOGEN (test code = 10066-5) <=1.0 0.1-1.0 UA Nitrite (test code = 5802-4) Negative Negative UA Leuk Est (test code = 5799-2) Negative Negative UA RBC; Above High Threshold (test 10 {/HPF} 0-2 code = 44536-8) UA WBC; Above High Threshold (test 8 {/HPF} 0-5 code = 89784-5) UA Bacteria (test code = 79720-8) Few None Seen UA Mucus; Abnormal (test code = Many None Seen A 8247-9) UA Sq Epi (test code = 46443-2) Occasional Few [facility][] PROTEIN, TOTAL W/CREAT, RANDOM URINE 2019-01-13 10:10:01 Test Item Value Reference Range Interpretation Comments U Creatinine (test 303.00 mg/dl No establ ished code = 2161-8) reference ran ge. Urine Protein Level 51.5 mg/dl No estab lished (test code = 2888-6) referen ce ranges. U Prot/Creat (test 0.17 code = 2890-2) [facility][] HEPATITIS B SURFACE ANTIGEN W/REFL CONFIRM 2019-01-13 10:10:01 Test Item Value Reference Range Interpretation Comments Hepatitis B Surface Antigen (test Negative Negative code = 5195-3) [facility]] HEPATITIS C [id number] 10:10:01 Test Item Value Reference Range Interpretation Comments Hepatitis C Antibody (test code = Negative 03010-5) [facility][] CYCLIC CITRULLINATED PEPTIDE (CCP) AB (IGG) 2019-01-13 10:10:01 Test Item Value Reference Range Interpretation Comments Cyclic Citrulline Peptide Antibody <0.5 <=2.9 (test code = 70007-2) [facility][] Urine Dipstick (In Office)2018-12-29 16:04:00 Test Item Value Reference Range Interpretation Comments Glucose (test code = Glucose) 100 MG/dL LEUKOCYTES (test code = LARGE LEUKOCYTES) NITRITE (test code = 42488-6) POSITIVE UROBILINOGEN (test code = 4.0 E.U./dL 32559-0) PROTEIN (test code = 57949-8) >=300 MG/dL pH (test code = pH) 5.5 URINE BLOOD (test code = 26288-9) SMALL SPECIFIC GRAVITY (test code = >=1.030 2965-2) KETONES (test code = 16845-6) 15 MG/dL BILIRUBIN (test code = 16573-7) MODERATE COLOR URINE (test code = 5778-6) LUCERO APPEARANCE (test code = 5767-9) CLEAR [facility]] URINALYSIS, [id number] 15:10:01 Test Item Value Reference Range Interpretation Comments UA Turbidity; Abnormal (test code Slight Clear A = 97440-6) UA Spec Grav; Above High Threshold 1.040 <=1.030 (test code = 5810-7) UA pH (test code = 5803-2) 5.0 5.0-8.0 UA Protein; Abnormal (test code = 100 mg/dl Negative A 49250-5) UA Glucose (test code = 42273-4) Negative Negative UA Ketones (test code = 95621-4) Negative Negative UA Bili (test code = 5770-3) Negative Negative UA Blood; Abnormal (test code = Small Negative A 5794-3) UROBILINOGEN; Above High Threshold 4.0 mg/dl 0.1-1.0 (test code = 07087-6) UA Nitrite; Abnormal (test code = Positive Negative A 5802-4) UA Leuk Est (test code = 5799-2) Negative Negative UA RBC; Above High Threshold (test 27 {/HPF} 0-2 code = 39668-8) UA WBC; Above High Threshold (test 14 {/HPF} 0-5 code = 14629-1) UA Bacteria (test code = 46538-2) Occasional None Seen UA Mucus; Abnormal (test code = Moderate None Seen A 8247-9) UA Sq Epi; Abnormal (test code = Moderate Few A 09161-1) UA Color (test code = 5778-6) [place] [facility]] CBC (INCLUDES DIFF/PLT)2018-12-29 15:10:01 Test Item Value Reference Range Interpretation Comments WBC; Above High Threshold (test 10.8 {K/CMM} 3.7-10.4 code = 6690-2) RBC (test code = 789-8) 4.47 {M/CMM} 4.20-5.40 Hgb (test code = 718-7) 14.4 g/dl 12.0-16.0 Hct (test code = 44103-4) 42.7 % 36.0-48.0 MCV (test code = 787-2) 95.6 fL 80.0-98.0 MCH; Above High Threshold (test 32.1 pg 27.0-31.0 code = 785-6) MCHC (test code = 786-4) 33.6 g/dl 32.0-36.0 RDW (test code = 788-0) 13.7 % 11.5-14.5 Platelet (test code = 28598-8) 335 {K/CMM} 133-450 Mean Platelet Volume (test code 8.3 fL 7.4-10.4 = 50210-6) [facility]] [id number] 15:10:01 Test Item Value Reference Range Interpretation Comments Segmented Neutrophils (test code 64.3 % 45.0-75.0 = 77066-2) Monocytes (test code = 04927-2) 7.6 % 2.0-12.0 Lymphocytes (test code = 42171-5) 26.8 % 20.0-40.0 Eosinophils (test code = 99179-9) 0.7 % 0.0-4.0 Basophils (test code = 706-2) 0.6 % 0.0-1.0 Segs-Bands # (test code = 6.9 {K/CMM} 1.5-8.1 68091-6) Lymphocytes # (test code = 2.9 {K/CMM} 1.0-5.5 56094-7) Monocytes # (test code = 18431-7) 0.8 {K/CMM} 0.0-0.8 Eosinophils # (test code = 0.1 {K/CMM} 0.0-0.5 56195-0) Basophils # (test code = 49992-0) 0.1 {K/CMM} 0.0-0.2 [facility][] HIV AB, HIV 1/2, EIA, WITH [id number] 15:10:01 Test Item Value Reference Range Interpretation Comments HIV Ag/Ab 4th Gen Negative Negative HIV test r esults should be (test code = considered posi tive only 80966-6) when both the s creening andthe confirma tory tests are positive. A negative confirmatory te st in patientswith a positive screening test does not exclude HIV inf ection. If clincallywarran svetlana, an HIV RNA quantitativ e test should be order ed. [facility][QL] CMP [id number] 15:10:01 Test Item Value Reference Range Interpretation Comments Sodium Level 143 {mEq/l} 135-145 (test code = 2951-2) Potassium Level 4.2 {mEq/l} 3.5-5.1 (test code = 2823-3) Chloride Level 107 {mEq/l} 95-109 (test code = 5-0) Carbon Dioxide 25 {mEq/l} 24-32 (test code = 2027-9) AGAP (test code = 15.2 {mEq/l} 10.0-20.0 15198-9) Glucose Lvl; 106 mg/dl 70-99 Adult reference range Above High values reflect the Threshold (test clinical magali delinesof the code = 2345-7) [place] [employer]. Creatinine Lvl 1.10 mg/dl 0.50-1.40 (test code = 2160-0) Blood Urea 21 mg/dl 7-22 Nitrogen (test code = 3094-0) BUN/Creatinine 19 6-25 Ratio (test code = 3097-3) Total Protein 7.1 g/dl 6.4-8.4 (test code = 2885-2) Albumin Lvl (test 3.7 g/dl 3.5-5.0 code = 1751-7) Globulin (test 3.4 g/dl 2.7-4.2 code = 85069-5) A/G Ratio (test 1.1 0.7-1.6 code = 1759-0) Calcium Level 9.3 mg/dl 8.5-10.5 Total (test code = 17980-6) ALT (test code = 47 u/l 0-65 1743-4) AST (test code = 18 u/l 0-37 40347-6) Alk Phos (test 56 u/l 39-136 code = 1783-0) Bili Total (test 0.3 mg/dl 0.2-1.3 code = 1974-) eGFR (test code = 64 The eGFR i s calculated 01875-0) {ML/MIN/1.7} using the CKD-E PI formula. In [...] be multiplied by t he estimated BMI. [facility][] LIPID PANEL WITH REFLEX TO DIRECT LDL 2018-12-29 15:10:01 Test Item Value Reference Range Interpretation Comments LDL (test code = 85997-4) 36 mg/dl <=99 Chol (test code = 2093-3) 124 mg/dl <=199 Trig; Above High Threshold (test 223 mg/dl <=149 code = 2571-8) HDL Cholesterol; Below Low 43 mg/dl >=61 Threshold (test code = 2085-9) CHD Risk; Below Low Threshold (test 2.88 3.90-5.80 code = 72415-4) VLDL (test code = VLDL) 45 [facility]] TSH, 3RD GENERATION W/REFLEX TO FT4 2018-12-29 15:10:01 Test Item Value Reference Range Interpretation Comments TSH (test code = 93864-4) 2.550 {uIU/ml} 0.360-3.740 [facility][H] CRP, hs, Cardiac [id number] 15:10:01 Test Item Value Reference Range Interpretation Comments C-Reactive Protein High 25.9 mg/L Low Risk: Sensitivity (test code = < 1.0 mg/LAverage 74483-4) Risk: 1.0 - 3.0 mg/LHigh Risk: >3.0 mg/LInflammatio n: >10.0 mg/L [facility]] SED RATE BY MODIFIED [id number] 15:10:01 Test Item Value Reference Range Interpretation Comments Sedimentation Rate (test code = 17 {mm/hr} 0-20 45279-2) [facility]] HEMOGLOBIN [id number] 15:10:01 Test Item Value Reference Range Interpretation Comments Hemoglobin A1c; Above High Threshold 5.7 % <=5.6 (test code = 4548-4) [facility]] ABDOUL PANEL, [id number] 15:10:01 Test Item Value Reference Range Interpretation Comments Antinuclear Antibody Negative Negative Because the ABDOUL was Screen (test code = Negative , the Reflex 04732-6) assays for Anti-dsDNA, SM/ [employer]ACH, Deb/La (SSA/S SB) were not perfor med. [facility]
[2020-05-29 20:02] LABS: Absolute Lymphocytes (CBC) 3.1 K/uL (0.7-4.9); Hematocrit 40.6 % (36.0-45.0); Lymphocytes % 22.9 % (15.3-44.8); MPV 7.7 fL (7.6-11.3); RBC Red Blood Cell Count 4.79 M/uL (3.86-4.86)
[2020-05-29 20:06] LABS: Protime INR 1.34
[2020-05-29 20:21] LABS: ALT/SGPT 22 U/L (12-78); AST/SGOT 12 U/L (15-37); Albumin 3.6 g/dL (3.4-5.0); Alkaline Phosphatase 103 U/L (45-117); BUN Blood Urea Nitrogen 18 mg/dL (7-18); Bicarbonate 24 mmol/L (21-32); Bilirubin Direct < 0.1 mg/dL (0-0.2); Bilirubin Total 0.4 mg/dL (0.2-1.0); Glucose Level 86 mg/dL (74-106); Magnesium 2.1 mg/dL (1.8-2.4); Potassium 4.1 mmol/L (3.5-5.1); Protein, Total 7.9 g/dL (6.4-8.2); Sodium Level 139 mmol/L (136-145); Troponin (Emerg Dept Use Only) < 0.02 ng/mL (0.0-0.045)
--- NOTE | 2020-05-29 20:22 | RAD REPORT ---
EXAM DESCRIPTION: CT - Head Brain Wo Cont - 05/29/2020 7:37 pm CLINICAL HISTORY: HEADACHE Headache, drowsiness COMPARISON: SINUS W O CONTRAST dated 04/11/2012; HEAD BRAIN W O CONTRAST dated 05/31/2008 TECHNIQUE: All CT scans are performed using dose optimization technique as appropriate and may inclu de automated exposure control or mA/KV adjustment according to patient size. FINDINGS: No intracranial hemorrhage, hydrocephalus or extra-axial fluid collection.No areas of brai n edema or evidence of midline shift. The paranasal sinuses and mastoids are clear. The calvarium is intact. IMPRESSION: No acute intracranial abnormality.
--- NOTE | 2020-05-29 20:44 | RAD REPORT ---
EXAM DESCRIPTION: RAD - Chest Single View - 05/29/2020 8:33 pm CLINICAL HISTORY: left side paresthesias Chest pain. COMPARISON: Chest Single View dated 01/28/2020; Chest Single View dated 08/13/2019; Chest Single View d ated 02/07/2018; Chest Single View dated 08/24/2016; Head Brain Wo Cont dated 05/29/2020 FINDINGS: Portable technique limits examination quality. The lungs are grossly clear. The heart appears mildly enlarged in size. No displaced fractures.
[2020-05-29] MEDS ORDERED: METOCLOPRAMIDE 10 MG/2mL INJ ONE (20:56)
[2020-05-29] MEDS ORDERED: NA CHLORIDE 0.9% 100 ML ONE (20:57)
[2020-05-29] MEDS ORDERED: dexAMETHasone 10 MG/ML VIAL ONE (20:57)
[2020-05-29] MEDS ORDERED: MECLIZINE HCL 12.5 MG TAB ONE (20:57)
[2020-05-29] MEDS ORDERED: NA CHLORIDE 0.9% 1,000 ML ONE (21:23)
--- NOTE | 2020-05-29 22:29 | ER ---
Nurse's Notes [facility] Name: Emilia Lora Age: 40 yrs Sex: Female : 1980 Arrival Date: 05/29/2020 Time: 16:46 Bed 17 Private MD: Diagnosis: Dizziness and giddiness;Headache;Paresthesia of skin Presentation: 05/29 17:05 Chief complaint: Patient states: Yesterday at 1400, I was asleep and woke up with the ca1 worse headache ever. I tried to sit up, I fell back cause I got dizzy. I tried to stand up, I couldn't, I got to push down on my R hand cause my L side seems asleep. My L arm and my L leg feel weak. I still feel bad when I sleep last night and was having trouble sleeping, and I woke up this morning, still feeling very dizzy. VAN negative. Coronavirus screen: headache, Client presents with at least one sign or symptom that may indicate coronavirus-19. Standard/surgical mask placed on the client. Provider contacted for isolation considerations. Ebola Screen: Patient negative for fever greater than or equal to 101.5 degrees Fahrenheit, and additional compatible Ebola Virus Disease symptoms Patient denies exposure to infectious person. Patient denies travel to an Ebola-affected area in the 21 days before illness onset. No symptoms or risks identified at this time. Initial Sepsis Screen: Does the patient meet any 2 criteria? No. Patient's initial sepsis screen is negative. Does the patient have a suspected source of infection? No. Patient's initial sepsis screen is negative. Risk Assessment: Do you want to hurt yourself or someone else? Patient reports no desire to harm self or others. Onset of symptoms was May 28, 2020. 17:05 Method Of Arrival: Wheelchair ca1 17:05 Acuity: VINITA 3 ca1 Triage Assessment: 17:12 Neuro: Level of Consciousness is awake, alert, obeys commands, Oriented to person, ca1 place, time, situation. 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 - Social history:: Smoking status: Patient denies any tobacco usage or history of. Screenin:00 Abuse screen: Denies threats or abuse. Denies injuries from another. Nutritional ca1 screening: No deficits noted. Tuberculosis screening: No symptoms or risk factors identified. Fall Risk Secondary diagnosis (15 points) impaired mobility, IV access (20 points). Gait- Impaired (20 pts.). Total Carmichael Fall Scale indicates High Risk Score (45 or more points). Fall prevention measures have been instituted. Side Rails Up X 2 Family Present and informed to notify staff if the need to leave the bedside. Assessment: 18:28 Reassessment: CT head without contrast ordered per Dr. vernon. ss 19:00 General: Appears in no apparent distress. comfortable, Behavior is calm, cooperative, ca1 appropriate for age. Pain: Denies pain. Neuro: Level of Consciousness is awake, alert, obeys commands, Oriented to person, place, time, situation, Quality Control Representative are equal bilaterally Moves all extremities. Speech is normal, Facial symmetry appears normal, Pupils are PERRLA, Intact Reports dizziness, since yesterday. Cardiovascular: Heart tones S1 S2 present Capillary refill < 3 seconds Patient's skin is warm and dry. Rhythm is sinus rhythm. Respiratory: Airway is patent Respiratory effort is even, unlabored, Respiratory pattern is regular, symmetrical, Breath sounds are clear bilaterally. GI: Abdomen is round non-distended, Bowel sounds present X 4 quads. Abd is soft and non tender X 4 quads. Reports nausea. : No signs and/or symptoms were reported regarding the genitourinary system. EENT: No signs and/or symptoms were reported regarding the EENT system. Derm: Skin is intact, is healthy with good turgor, Skin is pink, warm \T\ dry. Musculoskeletal: Circulation, motion, and sensation intact. Capillary refill < 3 seconds, 3D boot on L foot and L leg. 20:00 Reassessment: Patient appears in no apparent distress at this time. Patient and/or ca1 family updated on plan of care and expected duration. Pain level reassessed. Patient is alert, oriented x 3, equal unlabored respirations, skin warm/dry/pink. 21:00 Reassessment: Patient appears in no apparent distress at this time. Patient and/or ca1 family updated on plan of care and expected duration. Pain level reassessed. Patient is alert, oriented x 3, equal unlabored respirations, skin warm/dry/pink. Vital Signs: 17:05 BP 124 / 71; Pulse 85; Resp 18 S; Temp 98.9(TE); Pulse Ox 98% on R/A; Weight 149.69 kg ca1 (R); Height 5 ft. 9 in. (175.26 cm) (R); Pain 0/10; 19:00 BP 103 / 66; Pulse 81; Resp 16 S; Pulse Ox 96% on R/A; ca1 20:00 BP 112 / 77; Pulse 80; Resp 20 S; Pulse Ox 96% on R/A; ca1 20:51 BP 107 / 61; Pulse 89; Resp 20 S; Pulse Ox 99% on R/A; ca1 23:08 BP 129 / 65; Pulse 90; Resp 17; Temp 98.2; Pulse Ox 97% on R/A; Pain 0/10; tl1 17:05 Body Mass Index 48.73 (149.69 kg, 175.26 cm) ca1 ED Course: 16:46 Patient arrived in ED. as 17:11 Triage completed. ca1 17:12 Arm band placed on right wrist. ca1 19:00 Patient has correct armband on for positive identification. Bed in low position. Call ca1 light in reach. Side rails up X2. media monitor on. Pulse ox on. NIBP on. Warm blanket given. 19:04 Jonathan Adames PA is PHCP. cp 19:04 Karsten Vernon MD is Attending Physician. cp 19:36 CT Head Brain wo Cont In Process Unspecified. EDMS 19:55 Initial lab(s) drawn, by me, sent to lab. Inserted saline lock: 22 gauge in right ca1 forearm, using aseptic technique. Blood collected. 20:34 XRAY Chest (1 view) In Process Unspecified. EDMS 22:28 Barrie Todd MD is Referral Physician. cp 23:07 No provider procedures requiring assistance completed. IV discontinued, intact, tl1 bleeding controlled, No redness/swelling at site. Pressure dressing applied. Administered Medications: 20:37 CANCELLED (Physician Discretion): TORadol - Ketorolac 15 mg IVP once cp 20:42 Drug: Meclizine 25 mg Route: PO; ca1 23:10 Follow up: Response: No adverse reaction; Marked relief of symptoms tl1 20:43 Drug: Decadron - Dexamethasone 10 mg Route: IVP; Site: right forearm; ca1 23:10 Follow up: Response: No adverse reaction; Marked relief of symptoms tl1 20:45 Drug: Reglan 10 mg Route: IVP; Site: right forearm; ca1 23:10 Follow up: Response: No adverse reaction; Marked relief of symptoms tl1 21:10 Drug: NS 0.9% 1000 ml Route: IV; Rate: 1 bolus; Site: right forearm; ca1 23:09 Follow up: IV Status: Completed infusion; IV Intake: 1000ml tl1 Intake: 23:09 IV: 1000ml; Total: 1000ml. tl1 Outcome: 22:28 Discharge ordered by MD. cp 23:09 Discharged to home via wheelchair. tl1 23:09 Condition: improved 23:09 Discharge instructions given to patient, family, Instructed on discharge instructions, follow up and referral plans. medication usage, Demonstrated understanding of instructions, follow-up care, medications, Prescriptions given X 2. 23:10 Patient left the ED. tl1 Signatures: Dispatcher [employer] EDME Reina Hoang Shelby, RN RN Reshma Lopez RN RN tl1 Jonathan Adames PA PA cp Acob, Cheryl, RN RN ca1 Corrections: (The following items were deleted from the chart) 17:14 17:05 Chief complaint: Patient states: Yesterday at 1400, I was asleep and woke up with ca1 the worse headache ever. I tried to sit up, I fell back cause I got dizzy. I tried to stand up, I couldn't, I got to push down on my R hand cause my L side seems asleep. My L arm and my L leg feel weak. I still feel bad when I sleep last night and was having trouble sleeping, and I woke up this morning, still feeling very dizzy. ca1 20:55 19:00 Musculoskeletal: Circulation, motion, and sensation intact. Capillary refill < 3 ca1 seconds, ca1
--- NOTE | 2020-05-29 22:29 | EDPHYS ---
Physician Documentation [facility] Name: Emilia Lora Age: 40 yrs Sex: Female : 1980 Arrival Date: 05/29/2020 Time: 16:46 Bed 17 Private MD: ED Physician Karsten Vernon HPI: 05/29 19:10 This 40 yrs old Female presents to ER via Wheelchair with complaints of cp Headache, Numbness - l side, Trouble Walking. 19:10 The patient complains of pain to the top of head. The patient describes the headache as cp aching. Onset: The symptoms/episode began/occurred yesterday. 19:10 Severity of symptoms: in the emergency department the pain has improved, moderately. cp 19:10 Patient reports waking up yesterday about 1400 with severe headache all over. After cp getting up, started having dizziness, decreased sensation on left side and weakness. Patient reports difficulty walking due to dizziness. Today headache is improved, continues to have dizziness, nausea and decreased sensation left side of face and arm. Denies weakness. 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 - Social history:: Smoking status: Patient denies any tobacco usage or history of. ROS: 19:15 Constitutional: Negative for body aches, chills, fever, poor PO intake. cp 19:15 Eyes: Negative for injury, pain, redness, and discharge. cp Exam: 19:20 Constitutional: The patient appears in no acute distress, alert, awake, cp non-diaphoretic, non-toxic, well developed, well nourished, obese. 19:20 Head/Face: Normocephalic, atraumatic. cp 19:20 Eyes: Periorbital structures: appear normal, Pupils: equal, round, and reactive to light and accomodation, Extraocular movements: intact throughout, Conjunctiva: normal, no exudate, no injection, Sclera: no appreciated abnormality, Lids and lashes: appear normal, bilaterally. 19:20 ENT: External ear(s): are unremarkable, Nose: is normal, Mouth: Lips: moist, Oral mucosa: pink and intact, moist, Posterior pharynx: Airway: no evidence of obstruction, patent. 19:20 Neck: ROM/movement: is normal, is supple, without pain, no range of motions limitations. 19:20 Chest/axilla: Inspection: normal, Palpation: is normal, no crepitus, no tenderness. 19:20 Cardiovascular: Rate: normal, Rhythm: regular. 19:20 Respiratory: the patient does not display signs of respiratory distress, Respirations: normal, no use of accessory muscles, no retractions, labored breathing, is not present, Breath sounds: are clear throughout, no decreased breath sounds, no stridor, no wheezing. 19:20 Abdomen/GI: Exam negative for discomfort, distension, guarding, Inspection: abdomen appears normal. 19:20 Skin: no rash present. 19:20 Neuro: Orientation: to person, place \T\ time. Mentation: is normal, Cerebellar function: Romberg testing is negative, normal finger to nose testing, heel to gallagher testing is normal, Motor: moves all fours, strength is normal, Sensation: light touch is decreased in the left side of face and left arm. 20:17 ECG was reviewed by the Attending Physician. cp Vital Signs: 17:05 BP 124 / 71; Pulse 85; Resp 18 S; Temp 98.9(TE); Pulse Ox 98% on R/A; Weight 149.69 kg ca1 (R); Height 5 ft. 9 in. (175.26 cm) (R); Pain 0/10; 19:00 BP 103 / 66; Pulse 81; Resp 16 S; Pulse Ox 96% on R/A; ca1 20:00 BP 112 / 77; Pulse 80; Resp 20 S; Pulse Ox 96% on R/A; ca1 20:51 BP 107 / 61; Pulse 89; Resp 20 S; Pulse Ox 99% on R/A; ca1 23:08 BP 129 / 65; Pulse 90; Resp 17; Temp 98.2; Pulse Ox 97% on R/A; Pain 0/10; tl1 17:05 Body Mass Index 48.73 (149.69 kg, 175.26 cm) ca1 MDM: 19:45 Differential diagnosis: cerebral vascular accident, hyponatremia, migraine, neoplasm, cp subarachnoid bleed. 19:48 Patient medically screened. cp 22:27 Data reviewed: vital signs, nurses notes, lab test result(s), EKG, radiologic studies, cp CT scan, plain films, and as a result, I will discharge patient. 22:27 Counseling: I had a detailed discussion with the patient and/or guardian regarding: the cp historical points, exam findings, and any diagnostic results supporting the discharge/admit diagnosis, lab results, radiology results, the need for outpatient follow up, a neurologist, to return to the emergency department if symptoms worsen or persist or if there are any questions or concerns that arise at home. 22:27 Response to treatment: VSS. Patient reports symptoms improved with meds. Will discharge cp to home for continue monitoring. 05/29 19:28 Order name: Basic Metabolic Panel; Complete Time: 20:34 cp 05/29 20:49 Interpretation: Normal except: CL 108; GFR 71. 05/29 19:28 Order name: CBC with Diff; Complete Time: 20:34 05/29 20:51 Interpretation: Normal except: WBC 13.5. 05/29 19:28 Order name: LFT's; Complete Time: 20:34 cp 05/29 19:28 Order name: Magnesium; Complete Time: 20:34 cp 05/29 19:28 Order name: PT-INR; Complete Time: 20:34 cp 05/29 19:28 Order name: Troponin (emerg Dept Use Only); Complete Time: 20:34 cp 05/29 18:28 Order name: CT Head Brain wo Cont; Complete Time: 20:34 ss 05/29 19:28 Order name: XRAY Chest (1 view); Complete Time: 20:48 cp 05/29 21:46 Order name: Urine Dipstick--Ancillary (enter results) mw2 05/29 21:46 Order name: Urine --Ancillary (enter results) 2 05/29 19:04 Order name: Urine Dipstick-Ancillary (obtain specimen); Complete Time: 21:38 cp 05/29 19:04 Order name: Urine Test (obtain specimen); Complete Time: 21:38 cp 05/29 19:28 Order name: EKG; Complete Time: 19:29 cp 05/29 19:28 Order name: Cardiac monitoring; Complete Time: 20:17 cp 05/29 19:28 Order name: EKG - Nurse/Tech; Complete Time: 20:17 cp 05/29 19:28 Order name: IV Saline Lock; Complete Time: 19:54 cp 05/29 19:28 Order name: Labs collected and sent; Complete Time: 19:54 cp 05/29 19:28 Order name: O2 Per Protocol; Complete Time: 19:54 cp 05/29 19:28 Order name: O2 Sat Monitoring; Complete Time: 19:55 cp EC:17 Rate is 80 beats/min. Rhythm is regular. DE interval is normal. QRS interval is normal. cp QT interval is normal. T waves are Inverted in leads III, aVR. Interpreted by me. Reviewed by me. Administered Medications: 20:37 CANCELLED (Physician Discretion): TORadol - Ketorolac 15 mg IVP once cp 20:42 Drug: Meclizine 25 mg Route: PO; ca1 23:10 Follow up: Response: No adverse reaction; Marked relief of symptoms tl1 20:43 Drug: Decadron - Dexamethasone 10 mg Route: IVP; Site: right forearm; ca1 23:10 Follow up: Response: No adverse reaction; Marked relief of symptoms tl1 20:45 Drug: Reglan 10 mg Route: IVP; Site: right forearm; ca1 23:10 Follow up: Response: No adverse reaction; Marked relief of symptoms tl1 21:10 Drug: NS 0.9% 1000 ml Route: IV; Rate: 1 bolus; Site: right forearm; ca1 23:09 Follow up: IV Status: Completed infusion; IV Intake: 1000ml tl1 Disposition: 05/30 09:34 Co-signature as Attending Physician, Karsten Vernon MD. rn Disposition: 05/29/20 22:28 Discharged to Home. Impression: Dizziness and giddiness, Headache, Paresthesia of skin. - Condition is Stable. - Discharge Instructions: Dizziness, Migraine Headache, Paresthesia. - Prescriptions for Meclizine 25 mg Oral Tablet - take 1 tablet by ORAL route every 8 hours As needed; 30 tablet. Zofran 4 mg Oral Tablet - take 1 tablet by ORAL route every 12 hours As needed; 20 tablet. - Medication Reconciliation Form, Thank You Letter, Antibiotic Education, Prescription Opioid Use form. - Follow up: Barrie Todd MD; When: 1 - 2 days; Reason: Recheck today's complaints. - Problem is new. - Symptoms have improved. Signatures: Dispatcher [employer] EDMS Karsten Vernon MD MD rn Lasagna, Tonya, RN RN tl1 Jonathan Adames PA PA cp Kiarra Short RN RN ca1 Corrections: (The following items were deleted from the chart) 05/29 20:37 20:36 TORadol - Ketorolac 15 mg IVP once ordered. cp cp 23:10 22:28 05/29/2020 22:28 Discharged to Home. Impression: Dizziness and giddiness; tl1 Headache; Paresthesia of skin. Condition is Stable. Forms are Medication Reconciliation Form, Thank You Letter, Antibiotic Education, Prescription Opioid Use. Follow up: Barrie Todd; When: 1 - 2 days; Reason: Recheck today's complaints. Problem is new. Symptoms have improved. cp
[2020-05-30 00:11] LABS: Urine Blood NEGATIVE (NEG); Urine Glucose NEGATIVE (NEG); Urine Protein NEGATIVE (NEG); Urine Specific Gravity 1.025 (1.005-1.030); Urine pH 5.5 (5.0-7.0)
[2020-06-02 15:56] VITALS: BP 129/65; TEMP 98.2; O2SAT 97
== END 2020-05-29 23:10 | disposition home or self-care (01) ==
LOC: ER 16:44
DX: R51.9 Headache, unspecified (principal); R20.2 Paresthesia of skin; Z79.01 Long term (current) use of anticoagulants; Z88.1 Allergy status to other antibiotic agents; Z88.3 Allergy status to other anti-infective agents; Z88.2 Allergy status to sulfonamides; Z88.6 Allergy status to analgesic agent; Z86.718 Personal history of other venous thrombosis and embolism
CPT/HCPCS: 93005; 85025; 80048; 36415; 83735; 81025; 85610; 80076; 81003; 84484; 70450; 71045; J2765; J1100; J7030; 96361; 96374; 96375; 99284

== ENCOUNTER 2020-08-12 14:27 | Emergency (ER) | payer OTHER ==
--- OUTSIDE RECORDS SUMMARY | 2020-08-12 14:29 | XMS REPORT | Clinical Summary ---
:1980 Author Organization [facility] Address [address] [place] [address] Care Team Providers Name Role Phone Amanda [...] Surgery Date Site/Laterality Comments ADENOIDECTOMY NEPHRECTOMY CHOLECYSTECTOMY MD EGD TRANSORAL BIOPSY 01/23/2016 N/A Procedur e: SINGLE/MULTIPLE ESOPHAGOGASTRODU ODENOSCOPY (EGD); Surgeon: Alessia Woodruff MD; Location: [facility] EN DOSCOPY; Service: Gastroe nterology ABDOMINAL SURGERY [...] Sharla Cancer Maternal Grandmother Bates Sharla Terminal li antoni cancer GERD Maternal Grandmother Bates Calvin Liver cancer Maternal Grandmother Bates Calvin Ulcerative colitis Maternal Grandmother Bates Calvin Arthritis Mother Kiarra Vision loss Mother Kiarra [...] Health Maintenance Due Date Last Done Comments COVID-19 VACCINE (1 of 2) 1996 CERVICAL CANCER SCREENING 2001 INFLUENZA VACCINE 01/23/2020 04/17/2016, 04/13/2015 Results Not on fileafter 08/12/2019 Advance Directives For more information, please contact: [phone] Type Date Recorded 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
--- OUTSIDE RECORDS SUMMARY | 2020-08-12 14:30 | XMS REPORT | Clinical Summary ---
:1980 Author Organization [facility] Address [address] [place] [address] Care Team Providers Name Role Phone Sharpless Primary Care Provider Pcp, Primary Care Provider Unavailable Allergies Active Allergy [...] 0 Active mg capsule by mouth daily. meclizine (ANTIVERT) Take 25 mg 0 Active 25 MG tablet by mouth 3 (three) times daily as needed. norethindrone-ethiny Take 1 0 Discontinued l estradiol tablet by 0 (Error) (MICROGESTIN 07/13) mouth daily. 1-20 mg-mcg per tablet dexlansoprazole [...] Encounters Date Type Specialty Care Team Description 07/26/2020 Surgery Gastroenterology Ling Whalen REMOVAL,2 4HR PH MD Jean Claude PROBE 07/26/2020 Hospital Encounter Gastroenterology Ling Whalen MD 07/25/2020 Surgery Gastroenterology Ling Whalen MONI TORING 24 MD Jean Claude HR PH 07/25/2020 Hospital Encounter GastroenterLing Gonzalez MD 07/22/2020 Hospital Encounter Pre-Admission Testing Nidia Whalen MD 03/03/2020 Anesthesia Event Gastroenterology Sera Heart MD Ganderson, Lauren Nicole, MD 03/03/2020 Surgery Gastroenterology Sydney Gonzalez COLONNILAO PY,NADER Berger MD 03/03/2020 Hospital Encounter Gastroenterology Joseph Morales MD 03/03/2020 Travel 03/02/2020 Hospital Encounter Pre-Admission Testing 03/02/2020 Travel 01/27/2020 Outside Orders Central Scheduling Joseph Morales, [facility] erative proctitis with rectal bleeding (HCC) (Primary Dx) after 08/12/2019 Social History Tobacco Use Types Packs/Day Years Used Date Never Smoker Smokeless Tobacco: Never Used Alcohol Use Drinks/Week oz/Week Comments Yes rarely Sex Assigned at Date Recorded Not on file Last Filed Vital Signs Vital Sign Reading Time Taken Comments Blood Pressure 122/73 07/25/2020 10:29 AM PATENT EXAMINER Pulse 73 07/25/2020 10:29 AM PATENT EXAMINER Temperature 36.3 C (97.4 F) 07/25/2020 10:29 AM PATENT EXAMINER Respiratory Rate 18 07/25/2020 10:29 AM PATENT EXAMINER Oxygen Saturation 96% 07/25/2020 10:29 AM PATENT EXAMINER Inhaled Oxygen Concentration - - Weight 147.9 kg (326 lb) 07/25/2020 10:29 AM PATENT EXAMINER Height 172.7 cm (5' 8") 07/25/2020 10:29 AM PATENT EXAMINER Body Mass Index 49.57 07/25/2020 10:29 AM PATENT EXAMINER Plan of Treatment Health Maintenance Due Date Last Done Comments HEPATITIS C SCREENING 1998 LIPID PANEL 2000 CERVICAL CANCER SCREENING PAP 2001 ONLY (Age 21-65) INFLUENZA VACCINE (#1) 2020 04/17/2016, 04/13/2015 DEPRESSION SCREENING (12+) 06/24/2020 DTAP/TDAP/TD VACCINES (5 - Td) 10/01/2025 10/02/2015, 01/14, 12/31/2011, Additional history exists Procedures Procedure Name Priority Date/Time Associated Diagnosis Comme nts MOTILITY 07/25/2020 9:57 AM PATENT EXAMINER Gastroesophageal reflux disease, unspecified whether esophagitis pres ent Globus sensation Special Needs TEST,MONITORING 24 HR PH [73 0]MOTILITY [731] (ON MEDS)COVID TEST TO BE DONE TEST,MONITORING 24 HR PH 07/25/2020 9:57 AM PATENT EXAMINER Gastroesophageal reflux disease, unspecified whether esophagi tis present Globus sensation Special Needs TEST,MONITORING 24 HR PH [73 0]MOTILITY [731] (ON MEDS)COVID TEST TO BE DONE SARS-COV2/RT-PCR (HS & Routine 07/22/2020 4:31 Results for this REF LABS) PM PATENT EXAMINER procedure are i n the results section. REPORT OF PROCEDURE - 03/03/2020 4:16 ENDOSCOPY URL PM CDT REPORT OF PROCEDURE - 03/03/2020 4:08 ENDOSCOPY URL PM CDT TISSUE EXAM AP Routine 03/03/2020 2:37 Results for this PM CDT procedure are i n the results section. COLONOSCOPY,SUBMUCOSAL 03/03/2020 2:16 Screening for INJECTION PM CDT viral disease Ulcerative proctitis with rectal bleeding (HCC) COLONOSCOPY,POLYPECTOMY 03/03/2020 2:16 Screening for PM CDT viral disease Ulcerative proctitis with rectal bleeding (HCC) UPPER 03/03/2020 2:16 Screening for ENDOSCOPY,POLYPECTOMY PM CDT viral dise ase Ulcerative proctitis with rectal bleeding (HCC) UPPER ENDOSCOPY,BIOPSY 03/03/2020 2:16 Screening for PM CDT viral disease Ulcerative proctitis with rectal bleeding (HCC) COLONOSCOPY,BIOPSY 03/03/2020 2:16 Screening for PM CDT viral disease Ulcerative proctitis with rectal bleeding (HCC) POCT , URINE Routine 03/03/2020 7:27 Re sults for this AM CDT procedure are i n the results section. after 08/12/2019 Results SARS-CoV2/RT-PCR (Asymptomatic ONLY) (07/22/2020 4:31 PM PATENT EXAMINER) SARS-COV2/RT-PCR Negative Not Detected, [facility] Negative, See [facility] external report CENTER for linked test SARS-COV-2 [facility] PERFORM[facility] LAB [facility] Specimen Other - Nasopharyngeal wall structure (b joshua structure) Narrative Performed At Negative result for this test determines that [facility] SARS-CoV-2 RNA was not present in the specimen above the Limit of Detection (LOD). However, Negative results do not preclude SARS-CoV-2 infection and should not be used as the sole basis for treatment or patient management decisions. Negative results must be combined with clinical observations, patient history, and epidemiological information. A false negative result may occur if a specimen is improperly collected, transported or handled. A false negative result should be considered if patient's recent exposures or clinical presentation indicate that COVID-19 (SARS-CoV-2) is likely and diagnostic tests for other causes of illness are negative. Re-testing should be considered in cases of suspected false negatives. The limit of detection for this assay is 100 copies/mL. This SARS CoV-2 test is a real-time RT-PCR test intended for the qualitative detection of nucleic acid from SARS-CoV-2 in a nasopharyngeal swab specimen collected from individuals suspected of COVID-19 by their healthcare provider. This test has not been Food and Drug Administration (FDA) cleared or approved. This is a modified version of an approved Emergency Use Authorization (EUA) and is in the process of review by the FDA. Once authorized by the FDA, the issued EUA will be effective until the declaration that circumstances exist justifying the authorization of the emergency use of in vitro diagnostic tests for detection and/or diagnosis of COVID-19 is terminated under Section 564(b)(2) of the Act or the EUA is revoked under Section 564(g) of the Act. Testing was performed using the [employer] SARS-CoV-2 assay. Fact Sheet for Healthcare Providers: https://www.Datezr.Attenex/louis/HW_EABE-MaB-8 _HCP_Fact_Sheet_51-647908.pdf Fact Sheet for Healthcare Patients: https://www.Datezr.Attenex/louis/EX_YCHS-LpI-6 _Patient_Fact_Sheet_EN_51-449606O7.pdf Performing Laboratory: [place] [address] Performing Organization Address City/State/Zipcode Phone Number [facility] [address] [place] [address] CENTER REPORT OF PROCEDURE - ENDOSCOPY URL (03/03/2020 4:16 PM CDT) Narrative Performed At This result has an attachment that is no t available. REPORT OF PROCEDURE - ENDOSCOPY URL (03/03/2020 4:08 PM CDT) Narrative Performed At This result has an attachment that is no t available. Tissue Exam (03/03/2020 2:37 PM CDT) Case Report Surgical Pathology Report Case: [id number] [facility] Authorizing Provider: Sydney Hinton MD Collected: 03/03/2020 02:37 PM [facility] Ordering Location: [facility] Endoscopy Received: 03/04/2020 08:23 AM [...] [facility] Electronically A. DUODENUM, BIOPSY: [facility] signed by Sergey, - DUODENAL MUCOSA WITH [...] OR MALIGNANCY. Signing Pathologist Direct Phone Line: [phone] CPT Code(s) 80352 X 13, 75204 X 2 [facility] CLINICAL HISTORY Screening for viral [facility] disease, ulcerative [facility] proctitis with rectal [facility] bleeding. SPECIMEN SOURCE A. Duodenum [facility] B. Gastric biopsy [facility] C. Gastric polyp [facility] D. Distal esophagus E. Proximal esophagus F. [...] filtered and submitted in toto in A1. [facility] B. Received in formalin labe led with [...] in toto in M1. PA/ew MICROSCOPIC Performed. [facility] SPECIAL STUDIES The interpretation of this c ase included the use of immunohistochemistry or special stains. [facility] Control Slides Examined: In -house known positive controls were evaluated along with the test tissue. These control slides run alongside of the patients sample show appropriate staining. Internal [facility] MEDICAL [address] luzmaria and negative controls when available are evaluated Immunohistochemistry michelle caba testing was performed at [facility], Pathology Laboratory where it was developed and its performance characteristics were determined. It has not be en cleared or approved by [facility] [place].S. Food and Drug Administration. The FDA [...] assessment [facility] was performed at [facility] Pathology, [address] [place] [id number], Technical [facility] component was [facility] performed at Pathology, [address] [place] [id number], Professional [facility] component was [facility] performed at [facility], [address] [place] [id number], Specimen Tissue - Duodenal structure (body struct [...] (body structure) Tissue specimen (specimen) - Polyp, [place] n - Left/Descending Tissue specimen (specimen) - Sigmoid col on structure (body structure) Tissue specimen (specimen) - Rectum stru cture (body structure) Performing Organization Address City/State/Zipcode Phone Number [facility] [address] [place] [phone] CENTER POCT , urine (03/03/2020 7:27 AM CDT) Pathologist Sig nature Test Urine, POC Negative Control line present?, POC Yes Background clear?, POC Yes UPT Cassette Lot #, POC [id number] UPT Cassette Expiration Date, 04-23-2021 POC Specimen Urine after 08/12/2019 Insurance Payer Benefit Plan / Subscriber ID Effective Phone Address T ype Group Dates MEDICAID - MEDICAID [facility] [id number] 2018-Norma Wilson edivaniaid MEDICAID MGD STAR nt Contrac [facility]
--- OUTSIDE RECORDS SUMMARY | 2020-08-12 14:33 | XMS REPORT | Continuity of Care Document ---
:1980 Author Organization [facility] t Address [address] [place] [address] Care Team Providers Name Role Phone Carlos SANDOVAL Primary Care Physician Alessandra Whalen MD Attending Clinician Unavailable ALESSANDRA WHALEN Attending Clinician Unavailable Jin Campbell MD Attending Clinician [phone] STORM Attending Clinician Unavailable Cristel SANDOVAL Attending Clinician Tucker Blanc MD Attending Clinician JITENDRA Attending Clinician Unavailable Huy SANDOVAL Attending Clinician KALINA Attending Clinician Unavailable Kalina SANDOVAL Attending Clinician Aniya Heart MD Attending Clinician Katlin Rios MD Attending Clinician Celine Gonzalez MD Attending Clinician LANDY Attending Clinician Unavailable VANESA Attending Clinician Unavailable NELSON Attending Clinician Unavailable STU Attending Clinician Unavailable KAY Attending Clinician Unavailable DARIUSZ Attending Clinician Unavailable KANDI Attending Clinician Unavailable BECKY Attending Clinician Unavailable BECKY Attending Clinician Unavailable HARLEY Attending Clinician Unavailable VIGNESH Attending Clinician Unavailable CARI Attending Clinician Unavailable JAZLYN Attending Clinician Unavailable EDUARD Attending Clinician Unavailable EDUARD Attending Clinician Unavailable CHITRA Attending Clinician Unavailable KALINA Admitting Clinician Unavailable Payers Payer Name Policy Type Policy Effective Date Expiration Date Sour ce Number MEDICAID - [id number] 2018 [facility] MEDICAID MGD 00:00:00 - Medical [facility] Center [id number] d Contracted Problems Condition Condition Condition Status Onset Resolution Last Treating Co mments Source Name Details Category Date Date Treatment Clinician Date 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 9-10 [facility] Enteropath Enteropath Disease Active 2016-06 [place] ic ic 0-30 [facility] arthritis arthritis 00:00: st 00 Neuropathy Neuropathy Disease Active 2016-06 [place] 0-30 Methodi 00:00: st 00 RILEY RILEY Disease Active 2016-06 [place] (obstructi (obstructi 0-09 Me thodi ve sleep ve sleep 00:00: st apnea) apnea) 00 Asthma Asthma Disease Active 2016-06 [place] dependent dependent 0-09 Meth daniela on inhaled on inhaled 00:00: st steroids steroids 00 Chronic Chronic Disease Active [place] obstructiv obstructiv 4-10 Me thodi e asthma e asthma 00:00: st with acute with acute 00 exacerbati exacerbati on on Cough Cough Disease Active [place] 4-10 Methodi 00:00: st 00 Allergic Allergic [...] st 00 Myalgia Myalgia Disease Active 2015-06 [place] 1-08 Methodi 00:00: st 00 Chronic Chronic Disease Active 2015-06 [place] midline midline 108 [facility]i low back low back 00:00: st pain pain 00 without without sciatica sciatica Ulcerative Ulcerative Disease Active 2015-06 [place] colitis colitis 105 [facility] with with 00:00: st complicati complicati 00 on on History of History of Disease Active 2015-06 [place] endometrio endometrio 1-05 Me thodi sis sis 00:00: st 00 IBS IBS Disease Active 2015-06 [place] (irritable (irritable 1-05 Me thodi bowel bowel 00:00: st syndrome) syndrome) 00 Abdominal Abdominal Disease Active 2015-06 J[place] ston pain pain 06-28 Methodi 00:00: st 00 Weakness Weakness Disease Active 2015-06 [place] 06-28 Methodi 00:00: st 00 Anxiety Anxiety Disease Active 2015-06 [place] 1 Methodi 00:00: st 00 Gastropare Gastropare [...] Asthma Asthma Problem Active [facility] [place] [facility] Chronic Chronic Problem Active Univers [...] Active U nivers arthritis arthritis [facility] [place] [facility] RILEY RILEY Problem Active Univers [...] left [facility] [place] [facility] Back Back Problem [...] [place] , left , left Physici ans Headache Headache Problem Active [facility] [place] [facility] Allergies, Adverse Reactions, Alerts Allergy [...] 00 Center s Celecoxi Propensi Active Swelling 2019-[address] [facility] ty to 03-02 [...] Center s Levoflox Propensi Active Other (See 2019-[address] acin ty to Comments) 03-02 ia [facility] - adverse 00:00: Medical reaction 00 Center s Sulfa Propensi Active Swelling 2019-[address] [address] (Sulfona ty to 03-02 [...] s to drug Adhesive Propensi Active Hives 2009-[address] [facility] Tape ty to 07-23 [facility] - adverse 00:00: Medical reaction 00 Center s Nsaids Propensi Active Swelling 2009-[address] (Non-Remigio ty to 07-23 tongue [facility] - roidal adverse 00:00: Medical Anti-Inf reaction 00 Center lammator s y Drug) Ciproflo Allergy Active Univers xacin to drug ity of HCl TABS (finding [place] ) Physici ans Keflex Allergy Active Univers TABS to drug ity of (finding [place] ) Physici ans Levaquin Allergy Active Univers TABS to drug ity of ([facility] ) Physici ans CeleBREX Allergy Active Anaphylaxis Un marko CAPS to drug ity of ([facility] ) Physici ans Sulfa Allergy Active Anaphylaxis Univ ers Drugs to drug ity of ([facility] ) Physici ans Family History Family Member [...] ians Natural brother Alcohol abuse [place] Natural brother Depression [place] Quaker Natural brother Irritable bowel [place] syndrome Quaker Natural brother Learning disabilities [place] Quaker Natural brother Mental illness [place] Natural father Alcohol abuse [place] Quaker Natural father Hypertension [place] Quaker Maternal Diabetes [place] grandfather Quaker Maternal Heart disease [place] grandfather Quaker Maternal Hypertension [place] grandfather Quaker Maternal Parks's esophagus [place] on grandmother Quaker Maternal Cancer [place] grandmother Quaker Maternal GERD [place] grandmother Quaker Maternal Liver cancer Steve grandmother Quaker Maternal Ulcerative colitis Masoodto n grandmother Quaker Natural mother Arthritis Steve Quaker Natural mother Vision loss Steve Quaker Natural sister Alcohol abuse Steve Quaker Natural sister Depression Steve Quaker Natural sister Irritable bowel [place] syndrome Quaker Natural sister Learning disabilities Steve Quaker Natural sister Mental illness Masoodto n Quaker Social History Social Habit Start Date Stop Date Quantity Comments Source Sex Assigned At [facility] use and 2020-07-25 2020-07-25 Never used [facility] St Odom kes - exposure 00:00:00 00:00:00 Medical Center Alcohol intake 2020-07-25 2020-07-25 Current drinker RACHELE lambert [facility] - 00:[facility]:00 00:00:00 of alcohol [facility] (finding) Alcohol Comment 2020-03-02 2020-03-02 rarely RACHELE Louise kes - 00:00:00 00:00:00 Medical Center Smoking Status Start Date Stop Date Source Never smoker [facility] kes [facility] Medications Ordered Filled Start Stop Current Ordering Indication Dosage Frequency Signature Comments Components Source Medication Medication Date Date Medication? Clinician (SIG) Name Name albuterol Yes 1{puff} Inhale [address] HFA 2-02 puff by [facility] - (VENTOLIN 11:22: mouth via Med ical HFA) 90 36 inhaler Center mcg/actuati every 6 on inhaler (six) hours as needed for Wheezing. fluticasone Yes 1{puff} Inhale [address] -salmeterol 2-02 puff by [facility] - (ADVAIR) 11:22: mouth via Medi tyler 100-50 36 inhaler Center mcg/dose every 12 diskus (twelve) inhaler hours. traZODone Yes 100mg QD Take [address] (DESYREL) 2-02 mg by [facility] - 100 MG 11:22: mouth Medical tablet 36 nightly . Center apixaban Yes 5mg Q.5D Take [address] (ELIQUIS) 5 2-02 by mouth 2 Jaskaran kes - mg Tab 11:22: (two) Medical tablet 36 times Center daily. mesalamine Yes 2400mg Q.5D Take 2,[address] (LIALDA) 2-02 mg by [facility] - 1.2 gram EC 11:22: mouth 2 Med ical tablet 36 (two) Center times daily. propranoloL Yes 20mg Q.[id number] Take [address] (INDERAL) 2-02 [id number] by mouth 3 [facility] - 20 MG 11:22: 3D (three) Medical tablet 36 times Center daily. lamoTRIgine Yes 100mg QD Take [address] (LAMICTAL) 2-02 mg by [facility] - 25 MG 11:22: mouth Medical tablet 36 nightly. Center gabapentin Yes 800mg Q.[id number] Take [address] (NEURONTIN) 2- [id number] mg by L ukes - 800 MG 11:22: 3D mouth 3 Medical tablet 36 (three) Center times daily. dexlansopra Yes 60mg QD Take [address] zole 60 mg 2-02 by mouth [facility] - capsule 11:22: daily. Medical 36 Center meclizine Yes 25mg Take [address] (ANTIVERT) 2-02 by mouth 3 Ady es - 25 MG 11:22: (three) Medical tablet 36 times Center daily as needed. QUEtiapine QUEtiapine 2019-06 Yes HECTOR 1 TAKE 1 Univers Fumarate ER Fumarate ER 2-17 STORM M.DShahla TABLET ity of 50 MG Oral 50 MG Oral 00:00: BEDTIME [place] Tablet Tablet 00 Physici Extended Extended ans Release 24 Release 24 Hour Hour dexlansopra 2019- No 60mg QD Take [address] zole 60 mg 03-02 by mouth Luke s - capsule 09:47: 00:00 daily. Medical 27 :00 Center nitrofurant 2019- No 100mg Q.5D Take [address] oin, 03-02 mg by [facility] - macrocrysta 09:46: 00:00 mouth 2 Me dical l-monohydra 59 :00 (two) Center te, times (MACROBID) daily. 100 MG capsule norethindro 2020- No 1{tbl} QD Take [address] ne-ethinyl 03-02 tablet by Ady es - estradiol 09:45: 00:00 mouth Medica l (MICROGESTI 58 :00 daily. Center N 07/13) 1-20 mg-mcg per tablet buPROPion 2019-0 2020- No 450mg QD Take [address] HCl 450 mg 9 09-09 mg by Luirma - Tb24 09:43: 00:00 mouth Medical 15 :00 daily. Center lamoTRIgine lamoTRIgine 2019-0 Yes HECTOR 1 TAKE 2 Univers 100 MG Oral 100 MG Oral 8-05 STORM M.D. TABLETS BY ity of Tablet Tablet 00:00: MOUTH [place] 00 BEDTIME Physici ans Ondansetron Ondansetron 2019-0 Yes YANELI [...] ans PAIN. methylPREDN methylPREDN 2019-0 Yes HOLGER EPRAZA TAKE Univers ISolone 4 ISolone 4 3-02 M.D. 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 Physici ans Ibuprofen Ibuprofen 2018-06 Yes Uni vers 200 MG Oral 200 MG Oral 1-11 i ty of Tablet Tablet 00:00: [place] 00 Physici ans Fluticasone Fluticasone 2018-06 Yes CASTILLO Q0.5D INHALE [...] for ONE YEAR Lidocaine 5 Lidocaine 5 Yes LUIS ANTONIO APPLY 1 Univers % External % External 8-12 JAMALYARIA PATCH TO ity of Patch Patch 00:00: M.D. THE 00 AFFECTED Physici AREA AND ans LEAVE [...] HOURS Solution Solution NEEDED Diclofenac Diclofenac Yes JOSEPHINESHAYNE APPLY 2 GM Univers Sodium 1 % Sodium 1 % 8-08 JAMALYARIA OF GEL TO ity of GEL GEL 00:00: M.D. AFFECTED [place] 00 AREA 4 Physici TIMES ans DAILY. DO NOT APPLY MORE THAN 8 GM DAILY TO ANY ONE AFFECTED AREA. Omeprazole Omeprazole 2018- Yes KOBE 1 QD TAKE 1 Univers 40 MG Oral 40 MG Oral 8-02 OBONYANO CAPSULE ity of Capsule Capsule 00:00: BUS TRANSPORTATION MANAGER DAILY [place] Delayed Delayed 00 Physici Release Release ans Yes COREY HOBSON 1 QD TAKE 1 Univers 07/13 1-20 07/13 1-20 7-24 BUS TRANSPORTATION MANAGER TABLET ity of MG-MCG Oral MG-MCG Oral 00:00: DAILY. [place] Tablet Tablet 00 Physici ans Propranolol Propranolol [...] Tablet 00 BEDTIME Physici ans Neurontin Neurontin Yes ALANA ISAACSVED Q0.3333D TAKE 1 Univers 800 MG Oral 800 MG Oral 7-08 M.D. TABLET 3 ity of Tablet Tablet 00:00: TIMES [place] 00 DAILY. Physici ans Baclofen 20 Baclofen 20 Yes ALANA HAM 1 Q0.3333D TAKE 1 Univers MG Oral [...] Immunization Name FLUZONE QUAD PF 2016-04-17 Completed Power 00:00:00 Quaker Tdap Unknown Completed [facility]icia ns Vital Signs Vital Name Observation Time Observation Value Comments Source Systolic blood 2020-07-25 122 mm[Hg] [facility] - pressure 10:29:00 [facility] Center Diastolic blood 2020-07-25 73 mm[Hg] [facility] - pressure 10:29:00 [facility] Center Heart rate 2020-07-25 73 /min [facility] - 10:29:00 [facility] Center Body temperature 2020-07-[address] [facility] - 10:29:00 [facility] Center Respiratory rate 2020-07-25 18 /min [facility] - 10:29:00 [facility] Center Body height 2020-07-25 172.7 cm [facility] Billy - 10:29:00 [facility] Body weight 2020-07-25 147.873 kg [facility] Billy - 10:29:00 [facility] Center BMI 2020-07-25 49.57 kg/m2 [facility] Billy - 10:29:00 [facility] Oxygen saturation 2020-07-25 96 /min [facility] St Garsia es - in Arterial blood 10:29:00 Medical nter by Pulse oximetry BP Systolic 2019-07-13 118 mm[Hg] [facility] 13:08:[facility] Position: [place] Physician s Sitting BP Diastolic 2019-07-13 73 mm[Hg] [facility] 13:08:[facility] Position: [place] Physician s Sitting Height 2019-07-13 68 [in_us] [facility] 13:08:00 [place] Physician s Weight 2019-07-13 331 [lb_av] [facility] 13:08:00 [place] Physician s Body Mass Index 2019-07-13 50.33 kg/m2 University o f Calculated 13:08:00 [place] Physician s Heart Rate 2019-07-13 84 /min [facility] 13:08:00 [place] Physician s BP Systolic 2019-04-16 100 mm[Hg] [facility] 12:58:[facility] Position: [place] Physician s Sitting BP Diastolic 2019-04-16 66 mm[Hg] [facility] 12:58:[facility] Position: [place] Physician s Sitting Height 2019-04-16 68 [in_us] University of 12:58:00 [place] Physician s Weight 2019-04-16 332 [lb_av] University of 12:58:00 [place] Physician s Body Mass Index 2019-04-16 50.48 kg/m2 University o f Calculated 12:58:00 [place] Phys[facility] s Heart Rate 2019-04-16 91 /min Location: [facility] 12:58:00 Radial; [place] Physician s Quality: Normal BP Systolic 2019-03-26 122 mm[Hg] [facility] 11:25:00 Position: [place] Physician s Sitting BP Diastolic 2019-03-26 73 mm[Hg] [facility] 11:25:00 Position: [place] Physician s Sitting [...] s BP Systolic 2019-03-05 119 mm[Hg] Location: JASKARAN; [facility] 10:35:00 Position: [place] Physician s Sitting BP Diastolic 2019-03-05 79 mm[Hg] Location: [facility]; [facility] 10:35:00 Position: [place] Physician s Sitting Height 2019-03-05 68 [in_us] [place] of 10:35:00 [place] Physician s Weight 2019-03-05 331 [lb_av] [place] of :35: [place] Physician s Body Mass Index 2019-03-05 50.33 kg/m2 University o f Calculated 10:35:00 [place] Phys[facility] s Heart Rate 2019-03-05 90 /min Location: [facility] 10:35:00 Radial; [place] Physician s Temperature 2019-03-05 98.4 [degF] Method: [facility] :35:00 [place] [facility]ician s BP Systolic 2019-02-05 120 mm[Hg] [facility] Position: [place] Physician s Sitting BP Diastolic 2019-02-05 74 mm[Hg] Location: [facility] 16:19:00 Position: [place] Physician s Sitting Height 2019-02-05 68 [in_us] University of 16:19:00 [place] Physician s Weight 2019-02-05 329 [lb_av] University of 16:19:00 [place] Physician s Body Mass Index 2019-02-05 50.02 kg/m2 University o f Calculated 16:19:00 [place] Physician s Temperature 2019-02-05 98 [degF] Method: [facility] of :19: [place] Physician s Heart Rate 2019-02-05 89 /min Location: [facility] 16:19:00 Radial; [place] Physician s Quality: Normal Respiration Rate 2019-02-05 18 /min Quality: Normal Universi ty of 16:19:00 [place] Physician s O2 SAT 2019-02-05 95 % Source: RA [facility] 16:19:00 [place] Physician s BP Systolic 2019-01-29 120 mm[Hg] Location: [facility] 15:41:00 Position: [place] Physician s Sitting BP Diastolic 2019-01-29 80 mm[Hg] Location: DAO; [facility] 15:41:00 Position: [place] Physician s Sitting Height 2019-01-29 68 [in_us] University 15:41:00 [place] Physician s Weight 2019-01-29 325 [lb_av] University of 15:41:00 [place] Physician s Body Mass Index 2019-01-29 49.42 kg/m2 University o f Calculated 15:41:00 [place] Phys[facility] s Heart Rate 2019-01-29 89 /min University 15:41:00 [place] [facility] s Respiration Rate 2019-01-29 16 /min [place] of 15:41:00 [place] Physician s BP Systolic 2019-01-23 111 mm[Hg] [facility] 13:46:00 Position: [place] Physician s Sitting BP Diastolic 2019-01-23 69 mm[Hg] [facility] 13:46:00 Position: [place] Physician s Sitting Height 2019-01-23 68 [in_us] University 13:46:00 [place] [facility] s Weight 2019-01-23 330 [lb_av] University 13:46:00 [place] [facility] s Body Mass Index 2019-01-23 50.18 kg/m2 University o f Calculated 13:46:00 [place] Phys[facility] s Heart Rate 2019-01-23 86 /min Location: [facility] 13:46:00 Radial; [place] Physician s Quality: Normal BP Systolic 2019-01-14 101 mm[Hg] Location: TERES[place]; [facility] 12:53:00 Position: [place] Physician s Sitting BP Diastolic 2019-01-14 66 mm[Hg] Location: [place]; [facility] 12:53:00 Position: [place] Physician s Sitting Height 2019-01-14 68 [in_us] University 12:53:00 [place] Physician s Body Mass Index 2019-01-14 49.2 kg/m2 University o f Calculated 12:53:00 [place] Physician s Weight 2019-01-14 323.6 [lb_av] University of 12:53:00 [place] Physician s Respiration Rate 2019-01-14 18 /min Quality: Normal Universi of 12:53:00 [place] Physician s Temperature 2019-01-14 97.8 [degF] Method: Oral University of 12:53:00 [place] Physician s Heart Rate 2019-01-14 86 /min Location: [facility] 12:53:00 Brachial [place] [facility]ician s Artery; Quality: Normal O2 SAT 2019-01-14 95 % Source: [facility] 12:53:00 [place] Physician s BP Systolic 2019-01-14 120 mm[Hg] University 08:57:00 [place] [facility] s BP Diastolic 2019-01-14 76 mm[Hg] [facility] 08:57:00 [place] [facility] s Height 2019-01-14 68 [in_us] [facility] 08:57:00 [place] Phys[facility] s Body Mass Index 2019-01-14 49.42 kg/m2 University o f Calculated 08:57:00 [place] Physician s Weight 2019-01-14 325 [lb_av] [facility] 08:57:00 [place] [facility] s Respiration Rate 2019-01-14 18 /min [facility] 08:57:00 [place] [facility] Heart Rate 2019-01-14 82 /min [facility] 08:57:00 [place] [facility] s O2 SAT 2019-01-14 93 % [facility] 08:57:00 [place] Physician s BP Systolic 2019-01-14 120 mm[Hg] Location: [facility] 08:45:00 Position: [place] Physician s Sitting BP Diastolic 2019-01-14 76 mm[Hg] [facility] 08:45:[facility] Position: [place] Physician s Sitting Height 2019-01-14 68 [in_us] University 08:45:00 [place] Physician s Body Mass Index 2019-01-14 49.42 kg/m2 University o f Calculated 08:45:00 [place] Physician s Weight 2019-01-14 325 [lb_av] [facility] 08:45:00 [place] [facility]ician s Respiration Rate 2019-01-14 18 /min University 08:45:00 [place] [facility] Heart Rate 2019-01-14 82 /min [facility] 08:45:00 [place] Physician s O2 SAT 2019-01-14 93 % Source: [facility] 08:45:00 [place] Phys[facility] s O2 SAT 2019-01-13 94 % Source: [facility] 08:31:00 [place] Physician s BP Systolic 2019-01-13 119 mm[Hg] Location: JOEY [facility] 08:26:00 Position: [place] Physician s Sitting BP Diastolic 2019-01-13 79 mm[Hg] [facility] 08:26:00 Position: [place] Physician s Sitting Heart Rate 2019-01-13 91 /min [place] of 08:26:00 [place] Physician s Respiration Rate 2019-01-13 19 /min [place] of 08:26:00 [place] Physician s BP Systolic 2019-01-13 123 mm[Hg] Location: [facility] 08:22:00 Position: [place] Physician s Sitting BP Diastolic 2019-01-13 85 mm[Hg] [facility] 08:22:00 Position: [place] Physician s Sitting Height 2019-01-13 68 [in_us] University of 08:22:00 [place] Physician s Weight 2019-01-13 325 [lb_av] [place] of 08:22:00 [place] Physician s Body Mass Index 2019-01-13 49.42 kg/m2 University o f Calculated 08:22:00 [place] Physician s BP Systolic 2018-12-29 111 mm[Hg] Location: [facility] 13:10:00 Position: [place] Physician s Sitting BP Diastolic 2018-12-29 73 mm[Hg] [facility] 13:10:[facility] Position: [place] Physician s Sitting Weight 2018-12-29 325.4375 [lb_av] University of 13:10:00 [place] Phys[facility] s Height 2018-12-29 68 [in_us] University of 13:10:00 [place] Physician s Body Mass Index 2018-12-29 49.48 kg/m2 University o f Calculated 13:10:00 [place] Phys[facility] s Temperature 2018-12-29 98.3 [degF] Method: Oral [place] of 13:10:00 [place] Phys[facility] s Heart Rate 2018-12-29 93 /min Location: [facility] 13:10:00 Brachial [place] Physician s Artery; Quality: Normal O2 SAT 2018-12-29 94 % Source: [place] of 13:10:00 [place] Physician s Respiration Rate 2018-12-29 20 /min Quality: Normal Universi of 13:10:00 [place] Physician s Procedures Procedure Date / Time Performing Clinician Source Performed TEST,MONITORING 24 HR PH 2020-07-25 09:57:[address] [facility] MOTILITY 2020-07-25 09:57:[address] [facility] SARS-COV2/RT-PCR ([facility] & 2020-07-22 16:31:00 Ling Whalen y [facility] - REF LABS) [facility] Center REPORT OF PROCEDURE - 2020-03-03 16:16:[address] [facility] REPORT OF PROCEDURE - 2020-03-03 16:08:[address] [facility] TISSUE EXAM 2020-03-03 14:37:00 Sheikh [facility] Celine [facility] COLONOSCOPY,BIOPSY 2020-03-03 14:16:00 Sheikh [facility] Celine [facility] UPPER ENDOSCOPY,BIOPSY 2020-03-03 14:16:00 Sydney Gonzalez [facility] UPPER 2020-03-03 14:16:00 Sheikh Sydneyshannan Berger [facility] ENDOSCOPY,POLYPECTOMY Medical Ce nter COLONOSCOPY,POLYPECTOMY 2020-03-03 14:16:00 Sydney Gonzalez HI [facility] COLONOSCOPY,SUBMUCOSAL 2020-03-03 14:16:00 Sydney Gonzalez CH [facility] POCT , URINE 2020-03-03 07:27:[address] [facility] Post Op Promis 29 Survey 2020-01-08 00:00:00 [facility] US Extremity lower venous 2019-12-23 00:00:00 [facility] Doppler Unilat [id number] Physicians MR Ankle wo contrast [id number] 2019-10-19 00:00:00 [facility] MRI Spine lumbar wo 2019-08-24 00:00:00 [facility] contrast [id number] Physicians Post Op Promis 29 Survey 2019-05-20 00:00:00 Uni versity [facility] Physicians [[facility]] CLOSTRIDIUM 2019-04-16 00:00:00 [facility] DIFFICILE TOXIN A AND B, Physici ans EIA [[facility]] CULTURE, STOOL 2019-04-16 00:00:00 [facility] (CAMPYLOBACTER, Physicians SALMONELLA/SHIGELLA) MR Shoulder wo contrast 2019-04-08 00:00:00 [facility] [id number] Physicians Colonoscopy 2019-03-06 00:00:00 [place] [facility] [place] [facility] [[facility]] CLOSTRIDIUM 2019-03-05 00:00:00 [facility] DIFFICILE TOXIN A AND B, Physici ans EIA [[facility]] CULTURE, URINE, 2019-02-13 00:00:00 [facility] ROUTINE Physicians [LH] GC/CT by Amp Det 2019-02-13 00:00:00 [facility] (APTIMA) Physicians MR uJng wo contrast [id number] 2019-02-10 00:00:00 U [facility] Physicians [QH] DRUG 2019-02-09 00:00:00 [place] [facility] [place] SCREEN,COMPREHENSIVE Physicians (URINE) XRAY Clavicle Bilateral 2019-01-29 00:00:00 [facility] [id number] Physicians [H] Celiac Pnl w/Rflx 2019-01-23 00:00:00 [place] [facility] [facility] Physicians [QLH] HEPATIC FUNCTION 2019-01-23 00:00:00 [facility] PANEL Physicians [H] LUNDBERG FibroSure 2019-01-23 00:00:00 [facility] Physicians [QLH] CALPROTECTIN, STOOL 2019-01-23 00:00:00 [facility] US Abdomen Doppler [id number] 2019-01-23 00:00:00 [facility] Physicians [facility] Sleep Lab - Sleep 2019-01-14 00:00:00 [facility] Study Split Night Physicians [H] CK Isoenzymes 2019-01-14 00:00:00 [facility] Physicians Complete PFTs w/DLCO and 2019-01-14 00:00:00 [facility] Lung Volumes Physicians [N] 2D Echo complete, with 2019-01-14 00:00:00 U [facility] Doppler [id number] Physicians [QLH] URINALYSIS, COMPLETE 2019-01-13 00:00:00 U [facility] W/REFLEX TO CULTURE Physicians [QH] PROTEIN, TOTAL 2019-01-13 00:00:00 [facility] W/CREAT, RANDOM URINE Physicians [QL] QUANTIFERON(R)-TB 2019-01-13 00:00:00 [facility] GOLD Physicians [QLH] HEPATITIS C ANTIBODY 2019-01-13 00:00:00 [facility] [[facility]H] HEPATITIS B SURFACE 2019-01-13 00:00[facility]00 [facility] W/REFL CONFIRM Physician s [QH] CYCLIC CITRULLINATED 2019-01-13 00:00:00 [facility] PEPTIDE (CCP) AB (IGG) Physician s XRAY Knee 1-2 Views 2019-01-13 00:00:00 Universi ty [facility] Bilateral 79475 Physicians XRAY Chest 2 views [id number] 2019-01-13 00:00:00 [facility] XRAY Hip bilateral w 2019-01-13 00:00:00 Univers ity [facility] pelvis and both lat [place] [id number] XRAY Spine lumbar AP 2019-01-13 00:00:00 Univers ity [facility] lateral 73616 Physicians XRAY Spine cervical 2 or 2019-01-13 00:00:00 [facility] view [id number] Physicians XRAY Shoulder series [id number] 2019-01-13 00:00:00 U [facility] Physicians [QLH] TSH, 3RD GENERATION 2018-12-29 00:00:00 [facility] W/REFLEX TO FT4 Physicians [QH] LIPID PANEL WITH 2018-12-29 00:00:00 [facility] REFLEX TO DIRECT LDL Physicians [QLH] HEMOGLOBIN A1c 2018-12-29 00:00:00 Univers [facility] Physicians [QLH] CMP W/EGFR 2018-12-29 00:00:00 [facility] Physicians [QLH] CBC (INCLUDES 2018-12-29 00:00:00 Universi ty [facility] DIFF/PLT) Physicians [QH] HIV AB, HIV 1/2, EIA, 2018-12-29 00:00:00 U [facility] WITH REFLEXES Physicians [QLH] ABDOUL PANEL, 2018-12-29 00:00:00 [facility] COMPREHENSIVE Physicians [QLH] SED RATE BY MODIFIED 2018-12-29 00:00:00 U [facility] WESTERGREN Physicians [H] CRP, hs, Cardiac Risk 2018-12-29 00:00:00 [facility] [H] Urinalysis w/ 2018-12-29 00:00:00 [facility] Microscopic Physicians [QLH] CULTURE, URINE, 2018-12-29 00:00:00 [facility] ROUTINE Physicians [O] Urine Dipstick (In 2018-12-29 00:00:00 [facility] Office) Physicians History of Ureterectomy [facility] Physicians History of Gallbladder [facility] surgery Physicians History of Endometrial [facility] ablation Physicians History of Kidney surgery [facility] Physicians History of Adenoidectomy [facility] Physicians History of Cholecystectomy [facility] Physicians History of Sinus Surgery [facility] Physicians Plan of Care Planned Activity Planned Date Details Comments Source Future Scheduled 2025-10-01 DTAP/TDAP/TD [facility] Test 00:00:00 VACCINES (5 - Td) Medical Ce nter [code = DTAP/TDAP/TD VACCINES (5 - Td)] Future Scheduled 2020-06-[address] [facility] - Test 00:00:00 (12+) [code = [facility] DEPRESSION SCREENING (12+)] Future Scheduled 2020-02-[address] [facility] - Test 00:00:00 (#1) [code = [facility] INFLUENZA VACCINE (#1)] Future Scheduled 2020-01-23 INFLUENZA VACCINE [place] [facility] Test 00:00:00 [code = INFLUENZA VACCINE] Diagnostic Test 2019-04-13 [LH] GC/CT by Amp [facility] Pending 00:00:00 Det (APTIMA) [code = Physici ans [LH] GC/CT by Amp Det (APTIMA)] Diagnostic Test 2019-04-09 Colonoscopy [code = [facility] Pending 00:00:00 [id number]] Physicians Diagnostic Test 2019-04-09 Colonoscopy [code = [facility] Pending 00:00:00 [id number]] Physicians Diagnostic Test 2019-04-09 Colonoscopy [code = [facility] Pending 00:00:00 [id number]] Physicians Diagnostic Test 2019-04-08 MR Shoulder wo [facility] Pending 00:00:00 contrast 09190 [code Physici ans = [id number]] Diagnostic Test 2019-04-08 MR Shoulder wo [facility] Pending 00:00:00 contrast 20264 [code Physici ans = [id number]] Diagnostic Test 2019-03-30 Colonoscopy [code = [facility] Pending 00:00:00 [id number]] Physicians Diagnostic Test 2019-03-30 Colonoscopy [code = [facility] Pending 00:00:00 [id number]] Physicians Diagnostic Test 2019-03-30 Colonoscopy [code = [facility] Pending 00:00:00 [id number]] Physicians Diagnostic Test 2019-03-30 Colonoscopy [code = [facility] Pending 00:00:00 [id number]] Physicians Diagnostic Test 2019-01-14 Complete PFTs w/DLCO [facility] Pending 00:00:00 and Lung Volumes Physicians [code = Complete PFTs w/DLCO and Lung Volumes] Diagnostic Test 2019-01-14 [facility] Sleep Lab [facility] Pending 00:00:00 Sleep Study Split Physicians Night [code = [facility] Sleep Lab - Sleep Study Split Night] Diagnostic Test 2019-01-14 [N] 2D Echo [facility] Pending 00:00:00 complete, with Physicians Doppler 68733 [code = [N] 2D Echo complete, with Doppler 78745] Diagnostic Test 2019-01-14 [facility] Sleep Lab [facility] Pending 00:00:00 Sleep Study Split Physicians Night [code = [facility] Sleep Lab - Sleep Study Split Night] Diagnostic Test 2019-01-14 Complete PFTs w/DLCO [facility] Pending 00:00:00 and Lung Volumes Physicians [code = Complete PFTs w/DLCO and Lung Volumes] Diagnostic Test 2019-01-14 [facility] Sleep [facility] Pending 00:00:00 Sleep Study Split Physicians Night [code = [facility] Sleep Lab - Sleep Study Split Night] Diagnostic Test 2019-01-14 [N] 2D Echo [facility] Pending 00:00:00 complete, with Physicians Doppler 57268 [code = [N] 2D Echo complete, with Doppler 75647] Future Scheduled 2001 Screening for [facility] Test 00:00:00 malignant neoplasm of cervix (procedure) [code = 291772450] Future Scheduled [address] [facility] - Test 00:00:00 malignant neoplasm Medical C enter of cervix (procedure) [code = 512522207] Future Scheduled [address] [facility] - Test 00:00:00 (procedure) [code = [facility] 04375349] Future Scheduled [address] [facility] - Test 00:00:00 SCREENING [code = Medical Ce nter HEPATITIS C SCREENING] Future Scheduled 1996 COVID-19 VACCINE (1 [place] [facility] Test 00:00:00 of 2) [code = COVID-19 VACCINE (1 of 2)] Encounters Start End Encounter Admission Attending Care Care Encounter Source Date/Time Date/Time Type Type Clinicians Facility Department ID 2019-10-23 Outpatient [facility] [id number] [facility] 07:24:40 2020-06-14 2020-06-[address] [facility] [id number] 14:00:46 14:30:46 Visit , Bindu TerrazasNair [id number] Sravanti [id number] [id number] 2020-06-09 2020-06-09 Appointmen JOELLE STORM [facility] [id number] [facility] 12:00:00 12:00:00 t; HECTOR STORM, y - ity zechariah YOUNG M.D. Internation Tim martin M.D. [facility] Phys ici ans 2020-05-12 2020-05-12 Office [place]am [facility] [id number] 11:31:06 16:54:40 Visit AMBULATOR [id number] Y [id number] [id number] 2020-05-12 2020-05-12 Office Brandt Blanc [facility] [id number] 13:27:27 14:12:27 Visit Chuan AMBULATOR [id number] Y [id number] [id number] 2020-04-22 2020-04-22 Emergency E MHBL MHBL [id number] [facility] 19:33:00 19:33:00 2020-03-28 2020-03-28 Appointmen JOELLE HAM [facility] [id number] Univers 14:30:00 14:30:00 t; ALANA HAM M.D. i ty of Radha WARNER [place] Physici ans 2020-03-17 2020-03-17 AppointJOELLE Cintron [facility] [id number] Univers 12:00:00 12:00:00 t; HECTOR STORM lty - ity o f SHAOJIE, M.D. Internation Tim as [facility] Phys ici ans 2020-03-10 2020-03-10 [facility] [id number] 13:06:29 13:21:29 Visit [facility] [id number] IALTY [id number] [place] [id number] [facility] 2020-02-09 2020-02-09 AppointJOELLE Niño Orthopedics 68 [id number] Univers 11:00:00 11:00:00 t; lilly CARLTON [facility] BILL M.D. [facility] BRANDT Orthopedic Phys ici MSantosh and Spine [facility] 2020-01-27 2020-01-27 AppointJOELLE Cintron [facility] [id number] Univers 15:30:00 15:30:00 t; HECTOR STORM lty - ity o f SHAOJIE, M.D. Internation Tim as Radha al [facility] Phys ici ans 2020-01-01 2020-01-01 Layla PASTRANAH [facility] Orthopedics 67 [id number] Univers 09:50:00 09:50:00 t; GARRETT GROVES at [facility] GARRETT GROVES Orthopedic ysici and Spine [facility] 2019-12-23 2019-12-23 Outpatient E MHFB MED [id number] [facility]FB 17:36:00 17:36:00 2019-12-15 2019-12-15 JOELLE López Orthopedics [id number] Univers 11:10:00 11:10:00 t; lilly CARLTON [facility] BILL M.D. [facility] BRANDT Orthopedic Phys ici MSantosh and Spine [facility] 2019-11-27 2019-11-27 Layla BILL [facility] [id number] Univers 08:00:00 08:00:00 t; josé miguel CARLTON M.D. [place] MICHAEL, [facility]ici [facility] 2019-11-27 2019-11-27 Outpatient MHFB MHFB [id number] MHFB 06:50:00 06:50:00 2019-11-10 2019-11-10 JOELLE López [facility] [id number] Univers 10:45:00 10:45:00 t; josé miguel CARLTON M.D. [place] Adrien [facility]LTON [facility]. [facility] 2019-10-27 2019-10-27 JOELLE López [facility] [id number] Univers 11:30:00 11:30:00 t; josé miguel CARLTON M.D. [place] Adrien [facility]TON [facility] 2019-10-23 2019-10-23 Layla DAMON, JOELLE [facility] [id number] Univers 12:45:00 12:45:00 t; ELOISE DAMON [facility] Physici [facility] 2019-10-16 2019-10-16 JOELLE López [facility] [id number] Univers 10:30:00 10:30:00 t; josé miguel CARLTON M.D. [place] Adrien CARLTON [facility]. [facility] 2019-09-30 2019-09-30 JOELLE Cabral Mult[facility] [id number] Univers 15:30:00 15:30:00 t; HECTOR STORM arthur YOUNG M.D. Internation Tim martin M.D. nm [facility] Phys ici [facility] 2019-08-24 2019-08-24 JOELLE March Orthopedics [id number] Univers 14:30:00 14:30:00 t; HOLGER PERAZA M.D. [facility] Richard WREN M.D. Orthopedic Physi ci and Spine [facility] 2019-08-13 2019-08-13 JOELLE López Orthopedics [id number] Univers 09:45:00 09:45:00 t; lilly CARLTON [facility] Radha Childers Orthopedic Phys ici M.D. and Spine [facility] 2019-08-07 2019-08-07 Outpatient [facility] [id number] [facility] 10:04:00 10:04:00 2019-08-07 2019-08-07 JOELLE Coffman [facility] [id number] Univers 10:00:00 10:00:00 t; ELOISE DAMON of ELOISE [place] Physici ans 2019-08-04 2019-08-04 Appointmen LANDY, [facility] [id number] Univers 13:30:00 13:30:00 t; josé miguel CARLTON M.D. [place] Adrien CARLTON M.D. ans 2019-07-13 2019-07-13 Appointmen JITENDRA [facility] Multispecia [id number] Univers 13:00:00 13:00:00 t; ALANA HAM M.D. y - i ty [facility] 2019-06-23 2019-06-23 Appointmelina BILL, [facility] [id number] Univers 11:15:00 11:15:00 t; josé miguel CARLTON M.D. [place] Adrien CARLTON M.D. ans 2019-05-19 2019-05-19 Appointmen JOELLE VILLANUEVA Orthopedics [id number] Univers 08:00:00 08:00:00 t; ISAI [facility] of JOCELINE VILLANUEVA [place] ISAI, Medicine Physi ci BUS TRANSPORTATION MANAGER [facility] [address] 2019-05-08 2019-05-08 AppointJOELLE Niño Orthopedics 58 [id number] Univers 11:00:00 11:00:00 t; lilly CARLTON [facility] ty [place] BILL M.D. [facility] BR[facility]T Orthopedic Thea nichols M.D. and Spine [facility] 2019-05-04 2019-05-04 Appointmen DARIUSZ, [facility] [id number] Univers 11:00:00 11:00:00 t; Anish VALADEZ M.D. [place] Adrien VALADEZ M.D. ans 2019-04-20 2019-04-20 Appointmen KANDI [facility] [id number] Univers 13:00:00 13:00:00 t; OTTONIEL CHAU it y of [place]OU[place]FA, M.D. [place] Radha Physici ans 2019-04-16 2019-04-16 Appointmen BECKY [facility] Multispecia 5 [id number] Univers 13:00:00 13:00:00 t; BILLY, [place] lt[place]ario [place] [address] Physici ans 2019-04-14 2019-04-14 AppointJOELLE Niño Orthopedics 57 [id number] Univers 14:15:00 14:15:00 t; lilly CARLTON [facility] Radha Padron [place] BRANDT Orthopedic Thea nichols MSantosh and Spine [facility] 2019-04-13 2019-04-13 Appointmen JOELLE STORM [id number] Univers 12:00:00 12:00:00 t; HECTOR STORM ity o f SHAOJIE, M.D. [place] M.D. Physici ans 2019-04-09 2019-04-09 AppointJOELLE Delgado Multispecia 5 [id number] Univers 07:00:00 07:00:00 t; Radha CERVANTES [place]NA [place] MARC, M.D. [address] Physi ci ans 2019-04-09 2019-04-09 Outpatient MHSE MHSE [id number] MH 06:10:00 06:10:[address] [facility] 2019-03-26 2019-03-26 AppointJOELLE Krishna Multispecia [id number] Univers 11:30:00 11:30:00 t; alex HACKETT M.D. [place] ROXANN Braga Physic i M.DShahla [facility] 2019-03-17 2019-03-17 AppointJOELLE Niño [id number] Univers 11:00:00 11:00:00 t; josé miguel CARLTON M.D. [place] Adrien CARLTON M.D. [facility] 2019-03-05 2019-03-05 JOELLE Gallardo Multispecia 5 [id number] Univers 10:30:00 10:30:00 t; alex BULLOCK APRN [place], [address] Physici BUS TRANSPORTATION MANAGER [facility] 2019-03-03 2019-03-03 Outpatient MHHH MHHH [id number] MHH 11:36:00 11:36:00 2019-03-03 2019-03-03 AppointJOELLE Chong [id number] Univers 11:30:00 11:30:00 t; TADEO ALCALA, i ty of Radha PIEDRA M.D. Physici ans 2019-02-10 2019-02-10 Appointmen LANDY [facility] Orthopedics [id number] Univers 13:45:00 13:45:00 t; Darlene CARLTON ity o vidhi BILL M.D. [place] Adrien CARLTON [facility]. [facility] 2019-02-05 2019-02-05 Appointmen JOELLE STORM Multispecia [id number] Univers 14:00:00 14:00:00 t; HECTOR STORM lty - ity zechariah YOUNG M.D. Internation Tim martin M.D. al District Phys ici ans 2019-01-29 2019-01-29 Appoint[facility] [id number] Univers 15:30:00 15:30:00 t; alex HACKETT M.D. [place] Za[place] Physic i M.D. [facility] 2019-01-29 2019-01-29 Appointmen [facility] [id number] Univers 15:00:00 15:00:00 t; Dede HACKETT M.D. [place] ROXANN Physic i [facility] 2019-01-23 2019-01-23 Appointmen BECKY [facility] Multispecia 5 [id number] Univers 14:00:00 14:00:00 t; NITHYA CERVANTES lty - ity o vidhi PENA [place] [address] Physici ans 2019-01-14 2019-01-14 Appointmen COREY HOBSON UTP Multispecia [id number] Univers 13:00:00 13:00:00 t; JOCELINE HOBSON lty - ity zechariah NICOLE APRN Internation [place] Phys ici ans 2019-01-14 2019-01-14 Appointmen JOELLE CHAPA Non-Invasiv [id number] Univers 10:00:00 10:00:00 t; Addison CHAPA [facility] Phys[facility] ans 2019-01-14 2019-01-14 Appointmen EDUARD DONOVANKeyshawn UTP UTP [id number] Univers 09:00:00 09:00:00 t; josé miguel [facility] Physici ans 2019-01-14 2019-01-14 Appointmen JOELLE BUENROSTRO Pulmonary & [id number] Univers 08:30:00 08:30:00 t; CASTILLO BUENROSTRO M.D. Sleep ity of CHONGJayne M.D. Physici ans 2019-01-13 2019-01-13 Appointmen HARLEY [facility] Multispecia [id number] [facility] 08:00:00 08:00:00 t; lt ROXANNy - ity of HARLEY Garcia MarioTim as , ROXANN [facility] Physic Radha ans 2018-12-29 2018-12-29 Appointmen COREY HOBSON UTP Multispecia [id number] [facility] 13:00:00 13:00:00 t; JOCELINE HOBSON lty - ity o vidhi NICOLE APRN [facility]ation [facility] Results Test Description Test Time Test Comments Results Result Comments Source SARS-CoV2/RT-PCR (Asymptomatic ONLY) 2020-07-23 08:04:00 Test Item Value Reference Range Interpretation Comme nts SARS-COV2/RT-PCR (test code = Negative Not Detected, 23991-0) Negative, See external report for linked test SARS-COV-[address] [facility] FELICE (test code = 33489-4) PEYTON (test code = PEYTON) Negative result for this test determines that SARS-CoV-2 RNA was not present in the [...] Sellers SARS-CoV-2 assay. Fact Sheet for Healthcare Providers:https://www.[employer] American Mining Corporationdayday danielle.sellers/louis/LI_EFHR-MyA-5_H CP_Fact_Sheet_51-854423.pdf Fact Sheet for Healthcare Patients:https://www.[employer] r.sellers/louis/IE_VSWL-QnF-6_Ac tient_Fact_Sheet_EN_51-535243 R3.pdf Performing Laboratory:[place] [address] [address]OV2/RT-PCR ([facility])2020-07-23 08:04:00 Test Item Value Reference Range Interpretation Comments SARS-COV2/RT-PCR (test Negative Not Detected, Negative, code = 8760991) See external report for linked test SARS-COV-[address] [facility] FELICE (test code = 3495453) Negative result for this test determines that SARS-CoV-2 RNA was not present in the specimen above the Limit of Detection (LOD). However, Negative results do not preclude SARS-CoV-2 infection and should not be used as the sole basis for treatment or patient management decisions. Negative results mustbe combined with clinical observations, patient history, and epidemiological information. A false negative result may occur if a specimen is improperly collected, transported or handled. A false negative result should be considered if patient's recent exposures or clinical presentation indicate that COVID-19 (SARS-CoV-2) is likely and diagnostic tests for other causes of illness are negative. Re-testing should be considered in cases of suspected false negatives.The limit of detection for this assay is 100 copies/mL.This SARS CoV-2 test is a real-time RT-PCR test intended for the qualitative detection of nucleic acid from SARS-CoV-2 in a nasopharyngeal swab specimen collected from individuals susp ected of COVID-19 by their healthcare provider.This test has not been Food and Drug [...] is revoked under Section 564(g) of the Act.Testing was performed using the Sellers SARS-CoV-2 assay.Fact Sheet for Healthcare Providers:https://www.[employer].sellers/louis/ VU_UZBQ-MeX-2_PMM_Kcjr_Csnsf_73-999321.pdfFact Sheet for Healthcare Patients:https://www.[employer].ePatientFinder silvestre/louis/CD_BSVE-NpS-3_Yniwwgu_Brnn_Rqjsv_ZL_49-516957B8.pdfPerforming Laboratory:[facility] [place] [address]602 Tissue Yjrc2164-09-24 11:46:00 Test Item Value Reference Range Interpretation Comments Case Report (test code Surgical Pathology = 104) Report Case: [id number] Authorizing Provider: Sydney Gonzalez MD Collected: 03/03/2020 02:37 PM Ordering Location: [facility] Endoscopy Received: 03/04/2020 08:23 AM Services Pathologist: Chani Rnicon MD Specimens: A) - Duodenum, biopsy B) [...] - Rectum, biopsy DIAGNOSIS (test code = [id number] 3220) FuZzEwMzNcZnRuYmpcdWMx QRnjnlEgSQpyi1XiP3OxRn AwMFxhbnNpXGRlZmxhbmcx KJYsGUF2jkXzMFOhICovGN XvBZmeFc4wvPEluHwqAdFr MOBap9hkbcJAcjcyaLi6l0 nfJPGcTwM7cWGxIIiwP4lz swKguJJoIHMzGPn3zHtqPs JsTQPup99xwuWfMmZuFUJh WIUnNSEuaLVhT157l5xmg4 dqazNhdDK1SMRaZYWcW6Mx JL0oLIDzrDGaEXawbzRqNw N3UJzfRYEgKuH1CNBywMYv WVBwS0waDRDaPMobqyEfuz Q0YGOwgVHyUSG3pYrkp3L0 bGVzaGVldHtcZjBcZnMyMC ZXh5WxIHi4fKxnF1RrMUDk EkF4rEZbVMItNUnsBHIyOK OrwoY7yO12FOtoxrS8dOBw n2Smb61sx779lC6bzBYdYZ E3BVGyMHDurUXbUMCqRDB3 OUMutBPiC8e2CwVihLJhG8 W2BgVftTKjG9J6JvIsvVPx W4A6XcXyaCPcSZYjsJCzDt 5idXYozABacv6zyc60YUP7 z2HwnCimNPY3NZM4AsAfZs 6jaOBcDPSvCE7yPxSmrKQw VFZtpt44hUzgJHllbpSxgR 4tVjYmTL3pdNbfb07xHQKc FR1gpZ1pog6grtPiZHjppX OjbPN1hashHNT3DXWiwhVq r4Bov2zpAiChekIhN3kuG9 JyZHJoZWFkXHBnYnJkcmZv s6Per7QjgFZuuPw4n6fhSG WwIYFoySpfi2wjZNM0EZNk V8R1uSPia3dtCQbrDFFdzI W0dgftGSlmTKScntM9qpij UYolGCIfuWQ6cmqnFFexXB QqHrG1mpobJPnzRRFoKMV1 OIjrp851OMA8RYdkVhgmPT dlXHBnbmNvbnRccGduZGVj XHBsYWluXHBsYWluXGYwXG QdBxYeaZvpaTmziN1yVjHb ZnMyMFxwbGFpblxmMVxmcz IwXHBhclxwbGFpblxmMVxm czIwXGxhbmcxMDMzXGhpY2 doUcPeUWTepGfoVOxxr9Uq PSScCPBcO8yctjHdRUTpFN BCO9NXDhKOTAGNWM5RA6j6 XHBhciAgICAgLSBccGxhaW 9jIzWkGmDhQTxcYS0bTFHq K8vvmTArROSvSHRaZ7znRs GpfV2yuWtaNlqoXuExPoMw QRygvFCccTASFN9ENE4PHR GXVRAYE4DlB0oYXHRBZrST MFGFKYJzCpmOSI7VTeAYSu GQKMQLZ2GRZhCkSP0BAQ7H FSVCJ67ACxkTZM8EULpiiF 5lXHBsYWluXGYxXGZzMjBc bGFuZzEwMzNcaGljaFxmMV asMbOsXBSrAJcfF7wgPaRs G5YeALFuKtEpUGDyCESbIV BsYWluXGYyXGZzMjBcbGFu ZzEwMzNcaGljaFxmMlxkYm ZwYVLjCKshC0laKnYnU4Bu LZTwQlZirWHcO1ncMVlVI6 6LD7JQVtDXQNPTBpPCSL2K XHBsYWluXGYxXGZzMjBcbG FuZzEwMzNcaGljaFxmMVxk HlXoGWMlSQftE9feZdDcO7 YzXGZzMjAgLlxwYXIgICAg ZL0nHvXFUCAFJlYlVk5WJE DUZDSIGlPVWO0TFRVRUVmN QyBESVNFQVNFLlxwbGFpbl xmMVxmczIwXHBhclxwYXJc bOUpHDkcy1NiwvLmeWvsAM YbPUc0irUxcmpihBm5hGQw xHbcVBJyyZiyxX1wZpAqAt MyMFxwbGFpblxmMVxmczIw IEIuIFxwbGFpblxmMVxmcz LsOYvpjfyiDOGeTVclB5hi PpSxRXGfnNmvNNhgq9ZnZI WoVUHhZXlgsmGuJBu1ncZg FEBWY11VZ7ciTXTpOJasZP YxXGZzMjAgIFxwbGFpblxm MVxmczIwXGxhbmcxMDMzXG ftD6nbMjItMKTweBenVQjs l0NfFBRdDGOrTOxasuOeXK v4rwPeIMTGQ5IPSTMpOAti XGYxXGZzMjAgWVxwbGFpbl xmMVxmczIwXGxhbmcxMDMz UEflS1dmOpKbVZJphPgwRZ alf4WzKNKhFVPwKGlvktXn DFi6gpMzCQxodVNkFRPvXL luXGYxXGZzMjAgICAgIFxw bGFpblxmMVxmczIwXGxhbm ycUOItQSisN2rqWuOhJTDg cSbjIOyvx6MiLJXdASXzUW edboXlUTg0ouUkYN4phTlp iE3eGzBiZmTnFSSuB2DGKN JJQyBPWFlOVElDIEFORCBB YxCMUWelfApvxO3wOxVuVo LbHWsxEB2hRUMxS2fwrFEp PAWlZINyF0faBlJvbG6msZ xmMVxjZjFcZnMyMFxsdHJj pFKiMSEFL1UFJXfXJGwuRY BsYWluXGYyXGZzMjBcbGFu ZzEwMzNcaGljaFxmMlxkYm LlDKXaWHryA9rwKjQpP4Ht COPkFhHsbGUwU1jbYy6uT9 bGOhcICBJAXuYdHMlYE63W P1JKDgIJEOJWIkNUWX4OEM BsYWluXGYxXGZzMjBcbGFu ZzEwMzNcaGljaFxmMVxkYm DrEJRxNQclO9qgSwSsC7Ga XGZzMjAgLlxwbGFpblxmMV xmczIwXHBhciAgICAgXHBs YWluXGYxXGZzMjBcbGFuZz EwMzNcaGljaFxmMVxkYmNo ACXnAJafX7ehBmUcV7XgQS JzUoAqsOBqB2jrEMdblNKg blxmMVxmczIwICBccGxhaW 6dTdJaNfNwJRthSP1aWHAx G7qqoWMoHMApSZXxX2ajYu RqrZ8aeJyrLRarDaGuDcWh MFxsdHJjaCBORUdBVElWRS DQN8UpUHLHERJJMnUDHPWG PEKECB6UNSRSUvpWJvzPOU IcNvshX7FNMEsFGoGNNFQF TzmqH9RFVP0boHgncV1zNc FcZnMyMCAuXHBsYWluXGYx XGZzMjBcbGFuZzEwMzNcaG ljaFxmMVxkYmNoXGYxXGxv B4xhMoClU0OoOQYjMySjpR IzU4xbqIKgMUYjyaVmj0Pn WVHtSUZ8FGbfMFtszXxprK FpblxmMFxmczIwXHBsYWlu XGYxXGZzMjAgICAgIFxwbG FpblxmMVxmczIwXGxhbmcx RTZrZZeyU0jtWxUvFNHedO unUAtww2FtFYQmIIFuWWsx trDkVZu5pfPnUA8hxKpltM 5cZjFcZnMyMCAgTkVHQVRJ LmTfxQfhsX2oCwAkRcFwMU xfJM7kPAFsP7ltwDEoHCKe GSOaO8obFqQpbF7ybScfWY xjZjFcZnMyMFxsdHJjaCAg Zt6WIOQmHVgbUDYbIVYgNf AgIFxwbGFpblxmMVxmczIw QOqbkjbcHHNuSEblV3eiQl ViZSMydMxvZVoij6CfZZOq TPJpNOkdpyBqDDp3mcImVB lOVEVTVElOQUwgTUVUQVBM QVNJQVxwbGFpblxmMVxmcz NvEJqwcImyrK1kShWkUqTt HNhyWI2gPYIzA5jptVJrPB CmDQVoV7woZoMgjV3wzPfc MVxjZjFcZnMyMFxsdHJjaC EiOGyDKZhSL5kKWNShRQme NRSpMLAyMoVfFJ3JUVDjTZ luXGYxXGZzMjBcbGFuZzEw MzNcaGljaFxmMVxkYmNoXG LvWYkqJ0jsMgZjR3LvSQUr ZwXxrWCeE6gpZQ6QSAeCTe NUZ4qcyZogfO4iZrBsSgUg MCAuXHBhclxwYXJccGFyZF niu1TuurGhyKynDHUjOUo7 fvZfgyqepYf0sVAkcXvjTB OpwVpepV2iMkZxKyAfRGic bGFpblxmMVxmczIwIEMuIF xwbGFpblxmMVxmczIwXGxh sqvkTYAvEJexQ6kzJnIdRH ClzPbtOYvqj2EqMQTfYFBq BMrbkbMfASo8piZpHYNML4 7LV3jjZJEkNQswZJOlOUEc NuUfJLTYZNmYBNXJJ6uDVV YKPJ0OYCzrsOduaZ6cGgIr KgAhZFyfOQ1iEMZfC3yooR KnKMPkUPPtC3vdYaJxdJ1w aFxmMVxjZjFcZnMyMFxsdH TmgQtlPAAxsDhirY8yPkJd ZnMyMCAgICAgXHBsYWluXG YxXGZzMjBcbGFuZzEwMzNc aGljaFxmMVxkYmNoXGYxXG gdU9tkVwFkY6NeZFYaXgYx lTMeF0qyHOakqOAweivpYI xmczIwICBHQVNUUklDIEZV LxYREwOAYMXZVQGJY7jFVC 1khPMaGKYaFOLufGhgxU0q TgDpGeMsZGkhSD3vNQBfM7 entJTbFAUhLSBuY1jjEfHt cE1jsVgnFUnlYpXcEvGcXX xsdHJjaCAtXHBsYWluXGYx XGZzMjAgIFxwbGFpblxmMV xmczIwXGxhbmcxMDMzXGhp P4swMtZbKNCvzPijLEvgf6 NoXGYxXGNmMVxmczIwXGx0 pyRzTW6UW2TEZOWWZHWDLv NPFNbFV38ABXBVSAHuJWvS K1IELZ4ZK3FLSHJJXsEOHB BXQVJUSElOIFNUQVJSWSBT VEFJTlxwbGFpblxmMVxmcz RuBS5lnJeghN9nWfXxZoNo IJhfGI3gLCCeC4ejwHEjPO XxZCQhL0auZgLwgR1csWxv MVxjZjFcZnMyMFxsdHJjaF kcRDUjuLRjVRqyy5PsfeVi dXgwXHMwXHFsXHBsYWluXG SfNUAgXwRheRsekX4oYhBu ZnMyMCAgICAgXHBsYWluXG YxXGZzMjBcbGFuZzEwMzNc aGljaFxmMVxkYmNoXGYxXG dfB9znAhUgN7FsSFUfQgTv fEGiJ4dvWOfayWXvgkeuYI xmczIwICBORUdBVElWRVxw bGFpblxmMVxmczIwXGxhbm gsPXLxGAqlQ0svOtUuMHMi wBvnQEneq7TtALJdSBNgEV vgklZoUJb1fmOcLLNYW5La pGgtnC3qXiCjDeSxWCAdFF BsYWluXGYxXGZzMjBcbGFu ZzEwMzNcaGljaFxmMVxkYm WiNXUuJDaaM8olYhDxV4Jy VLRdMtVxbMYkV1btDP8MRN IJZJ9ICNDFJIOPHFvEQ6iK XHBsYWluXGYxXGZzMjAgLF xwbGFpblxmMVxmczIwXGxh fkikJIRvORzzN5rmFbRiBX XcwIhsXYfxs3ElVAFuAETf COtcauWeOYr7bcJsLEIKFI WJEPMTMHRbrDrxqU7qSoLq OvJqVWUuR7DgiZjjwH5cUk QzNdMzDKedTE3lEYXvB0yj eFPeLLCbHAUzH2qoIxIasB 9jaFxmMVxjZjFcZnMyMFxs lYUueWZnOMOICOvQSV8NEA zyqSUozsccZKaeqwRfRW8t cGFyXHBhclxwYXJkXHBsYW zkVGPeQHBlIaEqiSinsW2e BrVjCsRsDOZAMcLOT90BQT JGDTSaQIJAL6DBFQgwFmrV DRNGRnozIGChYGMvYF4uE3 CSYW1SMUUyMSZMCMqUSWjD TSBXSVRIIFxwbGFpblxmMl xmczIwXGxhbmcxMDMzXGhp L8lvDvFtUCYkoXqaImhib8 ClDULxLGQuI9mufaXvWDn7 yqDnGE6PWFQNC78JEdeBQI 1VYHWVUYhEL2PBZMAdDPtH RVJBVElPTlxwbGFpblxmMV xmczIwXGxhbmcxMDMzXGhp T6gnNxWyOJMliWswGWmez5 ByLYKeZRWvW8qmazIyIJ2d zUrlsB4iVpCcRjEiNAyxNL UqbNkspIuktK7bVyUkFfPf MFxwbGFpblxmMVxmczIwIC NhXAWsSR4SU6TOTOGESMYV UiBGRUFUVVJFUyBTVUdHRV XDRQHGBW6ERRHHG5vTD6QU GAaKCzYZO18XWZTAIAHDGk 0vvXUcBVFsAWCzJC1VB3AI YSIODCQTAnIQUuHZE2ESDo DNYF0LQDTCOBKFHSZwLMIG V5RCASAROC7gHGKJGSbCZB 9TAM7nfREgJJWrsuwyFMQj XHBsYWluXGYwXGZzMjBccG hzpE4sFcUbJgUmUTHWQgZW V20XONIZWIFfIVXAJ5fYYO QQWMLRFW4CV0u8PSQzddXg ICAtIFVOUkVNQVJLQUJMRS IOZVHZFK7TQvSRYBqQKRME SVVNLlxwYXIgICAgLSBORU fNLNaTTLLFM2HqAtYHFHAI SRXyM7KOR5BTWHpDBTROXi PAX3TYNy9EFMoIRMYqYACZ OZuJG0lVVXJkTDIocfhecB xwbGFpblxmMFxmczIwXHBs YWluXGYxXGZzMjAgICAgLS KDNRuOMMxJCKEOP5VwXE3Y AMRUCM8FOIRQLWHCQAkAJ2 xZBfJWVPSQQCVNUOKrNF3L HOkJCvSYR0kfWNNwkahwPN JccGFyZFxwbGFpblxmMFxm czIwXHBsYWluXGYxXGZzMj RkJg8oQ9TPLN0iHBSUIqUG TSwgQklPUFNZOlxwYXJccW tpnKtpoX5xEsTmTtLlTQcj bGFpblxmMVxmczIwICAgIC 0jS51LJ69YZcHEDCNYW3Zv U2yXKYOsyNleqZ8jFfIuQm KcDIpbKZ1hCTJnB8omcFJd LVWnFHGxE2gpQcHztM4duA xmMlxjZjNcZnMyMFxsdHJj pFGMLwZZRSoODDVWQ4MJKT LWCRWMKt6CIFxPFOJIPFLI FMPNK51icGxysS5cEdMtJr BiGRlaOG0lBBArY2mfbUMt LLSlUYYsM5dxHuHttL9bgY xmMVxjZjNcZnMyMCAuXHBh clxwbGFpblxmMVxmczIwIC LeSR1yAfSKGVSVSkRgKf3E KHQDF7ZGMQEAPJUUDiIQMW eKX55AOzVIAutyADKhuOGq NTpaPRCGHo1JGdRTFBwbiH FpblxmMVxmczIwXGxhbmcx YEAzIKyiV3uoNaTjLZVoeQ itYNesh1RtWGAmCMFjE6lj kvZnMEhVYUCUWIRUWF5ER8 r0DNKmGGesJAVbUWLpJlXg cGFyICAgICAtIElMRUFMIE 6YJ98DAUWNCGFRWNpwaPQz blxmMlxmczIwXGxhbmcxMD ClYXqxI9vuThZkUIRxjChi Haziy4FiWDTgVUXhZ7jnip VoTOs5zlAiRP6NXPSAC66B TmfHJB4XEOFLTKmHN1LOBR MgQUxURVJBVElPTlxwbGFp blxmMVxmczIwXGxhbmcxMD QtHLvjN3vyLvMqSOOfyToo DMnkw1XfMALgSZXgX0zugc OuUY3bsPiizL0sGhYkTqRl MIwzLTMpSOHmVW3cHqPETT MJKpCyMw9JCFTDN4QJKTTD SOLJWdXZJVlTV17YLjNFRj xwYXJccGFyXHBhcmRccGxh dS5eAvBuIcWcXFhlxRFkxb ohMRkmrfOqTIvqQNAJQA4O ZRTRI7vTR5QVO7WMYLgRSy wgQklPUFNZOlxwYXJccWxc jZkbvH8jXaCiSuBfLCiimH FpblxmMVxmczIwICAgICAt HGBIDC2BHHGvZNVKF5XPQU dJVEggXHBsYWluXGYyXGZz MjBcbGFuZzEwMzNcaGljaF mtOghkFhQhWPVpBQsjZ3xi BdXeJ1FhVSXxTcTisVNuP6 glCu1dH6aKXvkENXYEHvOb WIiGR99JP4IDIgJJMIMRCc UHJV6AZWAyGEarGBOlYOSe MjBcbGFuZzEwMzNcaGljaF rtKMrxRiXySIUzXWcdO4sw OgDgG4GtUTPpDaZzXtlgUU JccGFyZFxwbGFpblxmMFxm czIwXHBsYWluXGYxXGZzMj BxJUPnRT1fUeDAGVQELxPl Xo5CRX9LZ3PZJ7CISFwISI NPTElUSVMuXHBsYWluXGYx XGZzMjBcbGFuZzEwMzNcaG ljaFxmMVxkYmNoXGYxXGxv I6rvUzLmP8OfMTAlGyJweW FyXHFsXHBsYWluXGYwXGZz IiKubIcssV8xBrXkHcPrDA AgICAgLSBORUdBVElWRSBG J4MnAYtWOTmCE9cXBD3FSM 4KQXzVEdBNS1wjVTBvqfky YXJccGFyZFxwbGFpblxmMF xmczIwXHBsYWluXGYxXGZz HxZsEV6mX64GJ45qTXXIDI 9BGlOCQ1VcXMPEQ9OAAJyg cGFyXHFsXHBsYWluXGYwXG BmOnQbpMdrdS7oLpFfUhNd UXVwZHBbKRYHT0dZAqqJCA 5XV52TIEXLIGITLKucrGLi blxmMlxmczIwXGxhbmcxMD GxQVxxD9hfLkEaZGCzuCdr Jvabd0ZmRZGmEADkM1lrys OoZWe0ypUbDC4MTDTGC87S MapWJE9FCJORAVmMG8YPVY MgQUxURVJBVElPTlxwbGFp blxmMVxmczIwXGxhbmcxMD KkXFrvS8ptBwBlCTGufEgf ARjhh2DoVVObBLAaY2jerz MxZO7zoQLvUIYiTWrwZRRk YCYqQlWqPXPpGB3qGqMIUE PSAfKxWv4HEY6FI7BIK5VK UElDIENPTElUSVMuXHBhci AgICAgLSBORUdBVElWRSBG A8ZsZHmJGDbIM2aIDT7ZLO 9SPHzZIiNCA8lvOKOsywcq YXJccGFyZFxwbGFpblxmMF xmczIwXHBsYWluXGYxXGZz RiMnSk3nR14LD94iUBwGUu IoURDRT4QIUJjPJrvgXozT UFNZOlxwYXJccWxccGxhaW 5cZjBcZnMyMFxwbGFpblxm MVxmczIwICAgICAtIENPTE 5ASGHzQGZAL3DMQYmJHMis XHBsYWluXGYyXGZzMjBcbG FuZzEwMzNcaGljaFxmMlxk KpApEJLwKTdhX1fwCtBrM3 CpEKPoIySaiKClU0rhCf3w U5sJOllVQNEGLcAkXKyVA9 7FG1IJBtDKWRBCWeAVWM7Y XHBsYWluXGYxXGZzMjBcbG FuZzEwMzNcaGljaFxmMVxk PhEgIFNkMGveR3zeJrChE0 YzXGZzMjAgLlxwYXJccGxh zK1iDqKmMlWxXPWfELPsON OOIEpWPUqAQIQGD4JdQKjE Ex3RG48GYYWmF29UFNZKDl 7hgGVdFORzVLBvXB3HF5AO SVZFIEZPUiBEWVNQTEFTSU AzA3MuGMEDIFbOML9ORJ7h cGFyXHBhclxwYXJkXHBsYW fpKICyUOUiHrKcsZdnfI9n LxTvDmImLZJLQrRCT0eQJq bfHDPKAG6OHEEAZD5HKJ8I UXIWT6xTVNABXX6CXFghtT FyXHFsXHBsYWluXGYwXGZz JuEdwLbktQ3rVaPkJzYoCL AgICAgLSBTRVNTSUxFIFNF UlJBVEVEIFBPTFlQLlxwYX ItlDDoNHMwvhPtwXqlmO8s ZjBcZnMyMFxwbGFpblxmMV vjheWzLHvaNWMRDT8MKJYX CR2AN68gQKKHM1DETOvrsE FyXHFsXHBsYWluXGYwXGZz MaDdjHfmaE8aBoAiOqWfSQ MgPTTzPICGE8lHPcsGRY3U U85LBDJWXCVXLWzebNKyle xmMlxmczIwXGxhbmcxMDMz QFviG1wxVzNfLCYmsFnvKj zbo0SyRPAgQUMeR2mglsKz RPe7haQdWO6ZNFPYF25PUh bPQQ4ICDPOXZlNZ9ASWYLi QUxURVJBVElPTlxwbGFpbl xmMVxmczIwXGxhbmcxMDMz LSdcC5fgQnJhLEKlrMxsOD ugy5ZmDGEvXJWcV0gmlmRj WT3rfPWuYBYeXWorFVZmOQ KvIqXoADRxKM7xKwFKZNSY VrXvHe1IRZ6VL1PJR3ZLEB lDIENPTElUSVMuXHBhciAg ICAgLSBORUdBVElWRSBGT1 WfLExESEbEQ3kUPD8VJG4G QKrFYtWCD9oeTNXgvnzbQG JccGFyZFxwbGFpblxmMFxm czIwXHBsYWluXGYxXGZzMj KoEC3yNgEFFHBINAZNUR6O A0r1QVNaddppuDknjGAcsh xmMFxmczIwXHBsYWluXGYx HPYcKsNlFLCaAC6vRcFQUN BHXH7NL90ISQQWKZIZUDkx bGFpblxmMlxmczIwXGxhbm opTRYtENycQ3axAeAxJYHk rBszMxsyu0BaXSLoSGBdI7 bwhaPeTBz6wcXqOT7YJJPN C21XFahNNA7FBUDVOHxZV0 NUSUMgQUxURVJBVElPTlxw bGFpblxmMVxmczIwXGxhbm epQSXbCAuxD7rfEyScOYPq zXliGJtus4MvDOLbHRWcO2 egawKcKT4hpDUpBQFbULrh PSMmLNYoJxQzHHBlVH7uPj MDPIOIBtUwPw6GQWOUY9CG YNQGVGYQHhKJIQnTD55FDg NZLlxwYXJccGFyXHBhclxw KWE7u4kezBLwIUQiuMKkHE AwMFxhbnNpXGRlZmxhbmcx POKpQTX2gtVlQNZrVTymBD MkKTvuGe1hhANqqSzcDdZx LGSib0opynFOnuijxHd8k1 zaNFEnTmH4oXMzVHrrL0bp jdAtqZLwCQTrSCt0vE71GL ZbdE6qkOBlGLfimkOyWnY5 UEjoVKMyEsL5OFToxTPzMV XbF6vrSJUbHGitENOjXTqt lEQgLLU2aQymu5O6cRJwpC AhlPcqEwXxOsOtBvDXc6Ls MTo7rOwiC1DsQRYsTyU3fZ QgUGFyYWdyYXBoIEZvbnQ7 dW34WNhqmfQ8zTGbt3Kqa9 1yx234uP5arYPvKGL6ANKd HFZhgDKkHEDwTLD9KKSxoG GpT7mvBKZrJL1ozyagROjd HSlpOUKkdMI5JIPvxJXaT6 IiFHIrODgnYPGnpdi5DpGg Im1uhTHblEqdGRecz1jeb1 hwdVDvPkk8SGWkZcZkFnie YEtrb0Qcj3jjRCRboq6zVS N3vUKnrUxlg4J4vSFiJHFn oWZvBQJjOM2mmIEsSNFuzS 5ucmxjXHBnYnJkcmhlYWRc dQufzrExGq1ajEozOGU9AN utB1kvlG1uSnH8JJwyL2vu rX2gTDq7FFpoDOFjmGW4vv S0AMUayTMiN6TxxX1bFDNk VI3pqgb1a2heIDO4YHaeMQ UcOuG2wqH1XPMamAIoOAQw jFyhBOfrc788OKH4FmFaKX Rco2YgJ5CumEyhI85znZko Y07hXMGdhMngbV7nuNoedD 8kKsEwOeWcIXsqfClwOB7a ZWQkJ6xsaGKbOMXrKJOpR3 xoIkJtlJ8xnAwvNPzwivAe PRThUsn0GJKtdOAjCLSvTl r7DYJjYJKbW70wuuhhEUB5 qV6el7awc9WlVPrjZFS9PW Ftn54aPBdytzY4ZFtqNq52 TJbxFKL3DGgeLGH4eJ== CPT Code(s) (test code o3nuhKXbUGWbvEOaJoHxXB = 3357) WvLCJyf6rcONOdkBKpWpTi MzNcZnRuYmpcdWMxXGRlZm Chn0qeb693iNCnj4bnOAXn DxA4xDHdCEPauPYaX771p6 pei7inahXaiMK7EBHsXRY9 UDenmwReocD2UZjqeFBsBe O4YFbfzaUwEGlqcsZkebMb Yws5JMUhJ552WNV5oObvg4 xtISH8SGLqQYMxJxMtUx6p tNSjC803EABeWDJVVQAbtJ k5ZEWgunBfglIhyIWNq511 K172v6hzEVJfvpAemJnGzt aej2mwD508NZYtnGIobzIw NaUwYARtsIAvoQI8PAJoPT 7omwxbCzXnCL7msdovYiNj ZC0bcko0PlLpVF4pfghqLl LuUOztSCLthzvxXOBqw8Cc pihiRM0pK6Kdw7G6qX3lzA SwZFWrjLRrPoKjUHWaig3e lWOjUKnuw0QuWRQ8luO6wG IgfHNgSCGhDR91Aqzqk1Bs WaygQPX3AKQjmwTnx7Uzv7 ctPaIqkkEdA9pfV0PtMXBz SSWjZIRxEqWsbuZwq4Xhe7 QntLCskHq3l2kcTLHlMULf yFyhl7fsCBF2XFDlO7B2wK Shw1ltCDtfCTGcaOS1gtqc HNpqYDXvgsF4elbiDVonHS JplDO9ghdkJUxgMIXcWgV2 bhxjLCsbMGTvYVM9ARkwu3 48JDI1WPkpLhgwDFwoBTVq bmNvbnRccGduZGVjXHBsYW luXHBsYWluXGYwXGZzMjRc zAhimNzhkT2vPjJlAeRcIH hdUG6lBYZpQ1holHUiYOQw MQKyQ3nwXeJkvT3ltFawZD fgrzAjCPc9YdF2KOdeHEHp WVk0YtUaVHoqTlfmUQX9 CLINICAL HISTORY (test b5lcuYTsHHQmdPRjMvLuJL code = 3356) JrJXAhl7ugRFCfmLEtRkMw MzNcZnRuYmpcdWMxXGRlZm Kri4zfm198pNEbd4ngPHGp DbA7rTYyXQHxlQUdY349h1 fho5iulwMwjVM4UWTpVSU8 CVyeyeTsnzD1WWyloWZdVc W0YTooobBaBUlegoFgztMh Spq2HLBrC328OVP8iZkki9 gnNMZ7LJFyUGUuDfTfAy8e bVIgY171JGSuXANULMDgnL q9CUDwjmMntaIhjXHZp938 E873y3iiWOHkvwEgyIyQso gjh3ykH454FWAcgCYnjyUa JwZbCQVesJXwtIE0JVUnJG 9czqznGgRnZE4dndygEnHo XA4cows6YvTuZH4cdnkyBx DnBWzuIYEmzvvcETCfg3Uw jtsfHK2hY0Ovg5N4cE9azZ JjCUYrzKNuKmBzJJZgyw3m oVXwZEmji3TfUIA0ajW7fQ EkdISuUIVgOO90Qcvxx3Kv HsriKQM1BUVkwyZkp7Phx6 dqLmNswbNlM5pyN0JsRTAt IFMkNRPsNqUnjvUqw5Khq6 RimYSdhLn7i6vrYKEtMPAy rEyfe1maBXQ8UMZtB0J7eS Vls3cpXYgvVLLmtLY0tule HFqeBJJhtcF4lmcjZAipRT RxdCS2aendCTilWXUuQsI2 sqqbPHxbVFVyNIC7AXapk3 47QOP3UFssZlggVTvdKHFr bmNvbnRccGduZGVjXHBsYW luXHBsYWluXGYwXGZzMjRc kDrycJywrE0jNyPdHmExCH tgJG4kKRQoG7hpiPJvHUFt NDKnQ0jhZpCvzT8quJroMJ xmczIwIFNjcmVlbmluZyBm e5ArzhpjDSexYZisDEBeZA ckrFldLCGdhSa1JLDubh0x yNz5eETws0t3xWQhCGD0UZ wgYmxlZWRpbmcuXHBhcn0= SPECIMEN SOURCE (test r2ycgNJlADDcnCOuYdOlKO code = 3377) BnPFTvj2chMFVxlZAdEcVo MzNcZnRuYmpcdWMxXGRlZm Hro2zjv514xYLvc8mcWIRu RkC1wJWnDNNjeYJqQ734l0 uqv8zqrlQczOB5EKMhAFN5 RCzoonPcerT4DLbwqWIoQl D9XEqqgqDyCPcrjdCideKv Ynj2FHBjH076VXK1kMffy2 rlWRQ8RQEgFJZqSwIfGx0e wFPyH476HHJiWHIAHQAdyY g4EESaffUjqsYihUGLa598 Y381z2lzVKTifxQulNwQzb gdz1euU777JKEppSHjlmWu VnQjKCEcfBFalAL5ENNjOC 2hqpybHyMdHH0mepmcOuIv QE0yuhz3DlZkHB4nlbnaPy GeGWgmECRwhgfxQIQxx1Tb dbbzUC5bG8Yjz2O2eX5xnE WdGPIwnNBoRjBiPNKnxy0x zZBdTYnwg3WaGNB1uuB1rK TkuINmEJOwFQ22Iuodd5Vt ZbqfMVR5SJBztvAgl8Ned2 gzNsIvlpAbT1qeW6ScLMTs NPYdQBRsTaYtnxSyh3Zfu8 BvjDKipKe3n9ffXMWnHDLh bLyzj0uwEHM4KWAlM0F0hD Kql9vkUAfbKKWdtPY9pacs HOovQKArobP4kerxFDkjAX AavIF9esqkAHnfYVGzOgX8 cfcrTQokDOAmXYT7GLwsb3 90QTS6QIysLnucBLemAIXa bmNvbnRccGduZGVjXHBsYW luXHBsYWluXGYwXGZzMjRc cFltaFyxpS0cUdYyTtIsKP ijMD1uEIPnO0skdVGfGERr LFTrI7nyDzJdhY8niSlbGH azppKuASRxIQU7d1CqbeBt BHxoORJpRz2tU4QawOEfTu UvsM0fl6ikGBAzyuIXRxAB QVF6liacYRDnjDcuYWZraf KJXcNHcAJ3BClsHUCjzEml C7OvBDXrutMBOjPRdn14zG 6rqIXzd04hfTOjfLLueHLj SGEtCBFkG6UfOQDcdcIAIx BGiX6hYJ7zGyVsJE1kgrLq RMTtzQ8su5hpMMQuvfHYTo LAdYymrA1hd3ZspxVlgoij W68jm39bIEHysmXYAgBSya Ixm6QepnDoKEYznA6fALgv JOLqEq0sHGSnpJ9sDHNeNV 6diS0hASPuxG4qCHwbMBRr Hr6mHQNqcU6xDJCmTK3tbU 3vFSRgvT1gICAgpQpdCBuc OTEfGO0aG8tmuD9lBWXux5 mzavjwFVPgPL2jGjXlbMYk IFxwYXJ9 GROSS DESCRIPTION (test h7qmgEAjBOLgsRFzKeDcGE code = 3366) FsTLZjr5aiSOLugEMlDrCl MzNcZnRuYmpcdWMxXGRlZm Hzs1cul400gLCmf6xaBIEt DpD5qZWfNPCedAJvK145VC HeNMgbo4bwi7RwNBVguPGu r9A2SUUGqdwclJu1dIiyT5 7ee9G2FijgP0nhEUBsGSOj Y0JmEL0wCKToLqf3WTU6XG R4GVRmUXSiB3HxYL7pLDIi cETvALg7k3enwHluUZCsPF T4x3zxWQjbcoDxJM5qlg6s fQv0j7lfgbEeTNKuMECqjX HJKDXwX6BchGbkXi2wpCm1 yOhsAksqEFP1Wle1WW2ige 69njs6qVnpBRGqlcpaSjP4 ERliJNHvieclGYe2WStlOA JnbDcyMFxtYXJncjcyMFxt YXJndDcyMFxtYXJnYjcyMF esBQXqNIL4IUiqx366MVB2 BHmye9zon7cooDLmLyz7GZ BwJmCyTcikMXmax5Idq5wq IGWmvm9kZTH6nXGlpUmjg2 E8gDBjVLPauPKwuyKvDUKg EjT9IFloNL1vnq91UDJiEZ K1ey9spNDzlKedusKhoREe XSgcH4EeKJIns990WCVjG8 CtNBWll2U9koLgYhFhRQAg bRV1leS6IFBkFKj3yJKvlv O9hbEqyIWiA4schU26ZlGo bDVzG6VdqE26FfGeaCXsM1 HezU08ZgNoaBVfE6EfwY08 FzSxzJSjHSYuyAGfAo3fzM LkmZYzw2ZmrYYmKZheA28n m845CIWvlxDpK9gqjUVmgc dheDKbikvjGZehkoS7COVr XHBsYWluXGYwXGZzMjBcbG FuZzEwMzNcaGljaFxmMFxk EzTtILLvOEvkJ9orVqZmMn MyMCBBLiBSZWNlaXZlZCBp bpMms0TkNUivaaFxFJEcjW VkIHdpdGggdGhlIHBhdGll evIfixYlUD8uEGFcS1Rwj7 Llv54pnxQtKxKaYHDiVDKq VKCjQQFhqV1dPRAuALEig4 ZsUUBjhu6plO9rXLVeb7C7 ZSBmcmFnbWVudHMgbWVhc3 IvfL7vQVTdLDSvHOPiHiGy bSBpbiBncmVhdGVzdCBkaW 1boeGxy80xEGclxJQeXTKd NSTpuZs4JLQlRQIwjuXmf3 ZlnUp0hGPmHVqnTFGlhA9n dS5mCAVmZELqflzoBNJsXi 8vWbQgUWq2LCZchY3tDr4u dVKlsV7jlNNzVXrdREE6nU ZdDYJxDSSyREFnOY65H1Ji eaGvEFtxZRQnTJVryB0oEN 49zOGrjnAhzoPxBiyjg2Cv sJEsXrpbqVE0HvAzxrEwoY jbLPJkuy1epM3nIAWvj7R3 ZSBmcmFnbWVudHMgbWVhc3 EjrS5xJGXrVAPkFODaFeMs bSBpbiBncmVhdGVzdCBkaW 0cffFnk88zPTcddHIdPLmo IGZpbHRlcmVkIGFuZCBzdW ZdjPH8OEVljW8xlB59fxZq izVXWR7irYKoXOVniaMZLm IAKLHdgHQhBALgtoTzp3Wh YWxpbiBsYWJlbGVkIHdpdG ggdGhlIHBhdGllbnQncyBu AZ4oQMHhT6Xex7Hdw64wpe WxHxKuJQTqLAOtK3IqcJKh CfSon6x5pJWabPJpMLXqMg CesZKbQjQubLTtJiLmF74w tGBcDIAmkpzmmBsna3UaKC QoICadVK74LDI7rEbmfVWq nmIqvZy4FAVxLXXtizJox0 IewLm5aCNbYTiwCHHwdU9o oH3lAqFuUNNyfclgZLNmkP RycGFyXHFsXHBsYWluXGYw GDOkBmWasKpwlD7mDqXsUg DmQQzgEE2kHNWaK1oemJVe XUMtEOZtM9ajFmFxkD8ctH brPScvibGgESNeNXLgQ4Kq jcUpGHkeCPQvqa9aiIcwVZ zlIuTuHMQmp4z6kHS6xWYa kKZ9mXBijZxqRH8gfNIrDS HjJ5Fxe7enohLbkT0wSUJp ZI2oWKHjvHO4GVrrNJUtxK zxS3KtUhRhscWboZHiqAfb bGUgdGFuLXBpbmsgdGlzc3 WaOBUmQSeoWZ06rjXfMONk vHTyzcfvtZBrhJ3wIN9mYM QbRHrnRTiuJRA8DFA9MQMe qSEid9jbtgbur0dhD8pnUQ JlIGZpbHRlcmVkIGFuZCBz rZVixHI2QNLxqS3duD14pg IucgNWZI8cbJFuYLVtknAm d9PuJRLqTES9KJjbCXyhtN ujsOClqzdpSFpqivP0DHLc YWluXGYwXGZzMjBcbGFuZz EwMzNcaGljaFxmMFxkYmNo KYBnQTdhO9ebVhZqUtGnAK hqSTZxHI6tUdSfOTx1BSNa vE4pJj3gzRLavG8adQVeQT heZRM3pNOoTCRaSJJpKGOt LS23Q8AzqlUcGLnmJTAlZU NzeH0aQQ10sQArnaNehhIy YkZcb4zknVNbCIGhx6WjXM l0olIoXHZsXGVrwbCuXMHs bz2ptC4wQSOtj3J6NLJmdi VxuKYjzYLtcQHgs2KxgE7r IHVwIHRvIDAuMiBjbSBpbi SgekAcoYNmfVTwdO0bkgDw o55oUMtqvAOiPCNeEBKgiC l9KJErCELcnjLsz7UevDo9 qIKaVLmaEMFxbM6pkA8cIS BoSEGwegirNRGfAo2yXoFc KMn8LXNolZ4aKw0ilTOltP 3qqSOrJRdjLNO2fDBqKISr FTTjQPImYV10B3XttjEdBP pyFCZxLZTmlQ3pBP14uKYo ziWuykVpGlJrQ9PaTnXfpt UgdGhyZWUgdGFuLXBpbmsg nRvxo5KiYZYmJXvdMB77fa QlLBKrlREcjlvefFYwnO7q EQ2kCXJsOBggEXxaBJX2SX K9QGMidWFqa1rpqjuuf3sy D7rwNJOgPCFgxZXhavPiEO FyZVYiyIRroWM9DDMneJ3e hY66wwPrkxSLXU0vqNBcUU BhclxwYXJcbHRycGFyXHFs XHBsYWluXGYwXGZzMjRccG bveA7nAqFfZfXhDTlfEH0g DZLlC1vztPBaEGMlRXYnZ2 ueEgQuoM4hsKsvAFsmymMh AXvoQHNjS9ZrarHiLPiaFK Ibsa3hdAelCQaeVlRyEWIq q5a5hLM7nXPvvPA5dYMmlV biPO9gwKTdOVHwB4Jga2tc bxLovM5nYFZxPQ0kTXT8QX LfiY4nrOZrtYV4iBPaaY9j l2suYFHmSAH2nTZsLZR7ND 0mtHhawrG1aRXnkFToEdYs R27lzqTmIN0fVWE9hflbJj O1zPY2toFmBkWuB03kaX5q I2OfILOof9MeRCzdOC5jzA 2lJNQ2bLjeoIEdrvWqSkwo vZKdTXTpHR0kGDP2Ql0acI KjUERaojD3x7JoILdgXKvq LlxwYXJccGFyZFxwbGFpbl dcMUajcwU9ZQCoHZqmCMAn XGZzMjBcbGFuZzEwMzNcaG ljaFxmMVxkYmNoXGYxXGxv Z0isZxZoDzDwTRghSQVbsS skrPrbjR8zWaJhTxXqJPbp bGFpblxmMVxmczIwXGxhbm hoSJIuDTqqV4idMmXaMPFv dAksIPegm8ZlLRWuQFRnVy JiUO1bZbGqVRv7VWPipP6c Kx6ygCXrfF6yhLIcRZllRT O9cGKxEFWeQPMtZUMkIQ53 K8FxhjRuCNhnMZYpKQKvoI 1jLA39zYRlihEsinMmOyRb R2l6Q8HyF9StXJnhBoCjd9 xvbiIgYXJlIHRocmVlIHRh kq5yeN6eGIQnj0F7ZZChpf IqtVZzaGTuhWZpz9NtwY0j IHVwIHRvIDAuMyBjbSBpbi RvlmHuzGRrbJBylS4dczVt z55eXQiadCUuDIZbTQJiwP a8XNMlCPRpflGab6XmeBx9 tDIgJDvuMQKkrY1meX1xUH EuXHBhclxwbGFpblxmMFxm czIwXGxhbmcxMDMzXGhpY2 tyJcYuYIXlxSenGUweu7Wn XGYwXGZzMjBccGFyXHBhcm WzgEakfS0wAvGvBoTeMNjz bGFpblxmMVxmczIwXGxhbm bwADStKMmmT1kzNvNjZWTy pBbkIDzng4RcJQUiGMThOy XiGO7gSaAuKKd0JVLsmY7s Um1knLGtyC0vlPBiKTwgTS O2cAYaBSHjKLKpJUAhGK25 K6VapoKzEXtoMBJoQQYlfB 9eOO93kTLldrWrpzQyYuUn JW9ybyVrj1SkB76xf51nKN NvJBFmmXn7jYQwJEM8PU1v lOjcbzH1sPXzoKDlTiPuW6 8rpdSzVZ0mCXY1exkuPcL9 tJP7stBpLfCxJ15vfP3xK5 ZfSWJaj2MgWFdiCZ1nlJ9j TUO1gUoyaGUpsmZnLdmawE ZyLGQmAN7mSMU0Ic3ujYDv PPFldlO0e2BaSLfeXPyrJw yjCWCycJHeYIvoUPNzQ2Pt cvTqIRxhVQFsth6hwCxiPP uaKqWqBAJjm2d9vND2lECz bCG1xEKajPqgAG8lbAYxFD RbH7Ahn7hpbyEltO1cKAEx GH5qCRTaXGG4W9Mjx5Nwnx KmtaebX80ld90vBQQeOHP2 i11nkLBhPIBhnygmeLstq8 KyTOMgNFagOC91vhJcDLGd fZOxolofoKGgtI1eBN2pUI KnRKxiPFolBHV3BVV7CIOp xVLol6kbtcdeg5zqS2ojQZ JlIGZpbHRlcmVkIGFuZCBz eGIscCM2XOHteQ0xvG49bl LtysCCHK0pqBBsQLSazzYL LiBSZWNlaXZlZCBpbiBmb3 JtYWxpbiBsYWJlbGVkIHdp dGggdGhlIHBhdGllbnQncy BmZP7aIFUhA1Tol4Ffw74v bnVtYmVyIGFuZCAiZGVzY2 QoOZzrRpGqx7osszQwDDDa UG87eOAenArsWTVemn7nxX 7nQXTem2V7XELjddLxhZUp uZZzfYTyg9FplV5nTHFeDL RvIDAuMyBjbSBpbiBncmVh sDWkxRWjcV7yusHap77wME obhJMyHBYnKUKzeUa4FVVm UDCvtgSla1EipWr8jOIfYH niTDCckU3byA7ySETfBYTy iucaYXCtZx6xLmNsNJb8ZI LhrY3aZg9jfSLaqR2yxDEk WSgeVZD7lEBvYFObVVWgSW QtGG25L2ErxfAtIPivRJOf WNIvaT8nJB91mNCkydNldy IvCiyzJcXgYELfA3PtISoc IdOnn0upbwOjz8p0mVPwQC TzHMAhcwIiTKUzqd0ywR3q OXYqm3Q9PKClcaYfiYMjfT WkxQSag6QzgE4aFERsTBAb IDAuNiBjbSBpbiBncmVhdG MzeTTkdV5ofsZjk44mXIte wFNaZUWjHQDlrNr2IKCsBM BqmrTsi4ZakTv7oGAkXBxg BTVsxM0afD1hLlLwNTKvgy giGHXwHR7uRdRpLIg4SPPz aN4cIw3qdOTyxZ7wuYAbRQ hqNGO3oADnRHFwDJDrQAVo FP67G2DzzkTdXQdtBXHpGE NkbX6nUU46qLRghbCvjjUq EyQlL25xqOCgE58or96hCA ApDUV6pTZqABF3TC9mmXjz wuR7vTQjhSHmKwLgP92gdb PeDM5eAZU4jlztYzL8cQD2 slHgOoQjA71egE0jZ2EhQQ Qxp6DwWNmzTB8ieQ2oCZZ8 aGljaCBhcmUgZmlsdGVyZW NcTJ6kJJD0Az7akLHwMNLz wxJ7u2VyTVnlGWyaUghzVX PaiRRfNAm7vqEnobryyOlb tLJmgvyzARzrcnB9ZXQjHL luXGYxXGZzMjBcbGFuZzEw MzNcaGljaFxmMVxkYmNoXG FoSFisC4yoRkVgGyHhPZPP LiBSZWNlaXZlZCBpbiBmb3 JtYWxpbiBsYWJlbGVkIHdp dGggdGhlIHBhdGllbnQncy FwYH9lHKQzA6Jbg0Pew37o bnVtYmVyIGFuZCAicmVjdH VtIiBhcmUgdGhyZWUgdGFu ZSSgqqsabHsqz7DeISJuWI giHG95nyFjENNlxERophtx rRBpqA0rFK1vFNHfGJegXP rdSJQ3YMP9MGUvhDVny9rg wujdi5bmN1pxMDOlUFHfqB RlcmVkIGFuZCBzdWJtaXR0 AUUatY5weK92vhXwngEZNW 8doVdkoB8iMiJeYhGyJYky DI1wWENtZ8dbtACeNXYaUE WiQ5yoWeQsfX8veDysRAzq kxGrQJSKRA0gh5srMYY6 MICROSCOPIC DESCRIPTION y4wlkEWwGHKvdQSoDzHyEY (test code = 3371) ToDZAlw4ocMPCwoPMyHmKr MzNcZnRuYmpcdWMxXGRlZm Lyu3wmj342uACgl0xfPGJb JeX6wXBqAICycDScX142t9 avv0bbpxWvbEX6MGZyLUR0 DXnvhgKlspY4LOpabFHzWu R1IAoyyhReROghujLdssHk Rqa1CZYdJ953USH4uScws8 noRIV3TJNtPBPqWrKeWg2f aOZxF073HOVsFTZETMWueA c5NWJeerNavnLqcYWRo710 P183n1deFXPggoUypGwZwx kwf8cuV528TZRspFWcgoMv EvWoKLPvgZMxuOE3SOUiVM 9wxevlDrDvTC2fturfAlZx VM0ewei2VkQjSP4bwbclTm IrETnpZHHbnxcsEUEmo7Ac zjgeHB4sC9Tlj7J3qK8eoI MnONKglVKkFbQnQAAveu0n iHKqTFuke6MpJAM8udM5wB KjeQGhJSXgMQ79Ulhmg5Hp WbzoJDR2DJNckpByo3Rfu3 jaDlRtmdVzX4jfQ4TaJUQw BHDeOCTkPkKiyzHnh2Ckw7 TzuLHqjUn6w6ilAUBvBRMc zWjkg5xpNQD3GVDrS7S1pZ Suh9liPMmvGEUzjIO9yhlk XTmyTDUmjlH2zlswWQnkAF JpmAG5oznpJWgnLGJbHkC4 rcjbVDrdFDMtQZC5XYzvu7 41IIO1BMyqNwkpBHcdBFVt bmNvbnRccGduZGVjXHBsYW luXHBsYWluXGYwXGZzMjRc vNjjaVdngI5eMfYkBiQwJQ psNA0iBRCtQ2xujMBzATZy XRVjT5lcUyRwzQ5hmEojAU zjlyQqMAGdjiUvww6xRK1k cGFyfQ== SPECIAL STUDIES (test o2vxgHMxNELltVZzYvRkUB code = 3376) JtESOej1xzRHOwjPZwHiId MzNcZnRuYmpcdWMxXGRlZm Eqq3uyl864qIHjm4gjAEQs PoA5fUDsEVCrqVFlD344EL CjJYqdz2run9FyDVNsiHXb i1A0HKNAMWcrVhWuC304MD PwJCcan0xcw1BiNKDuiFKz l0X3TAFPntkrdKs0mTkqK2 7oc2V2BdwtX2fxUGFsZAWg A9WeYC9lGMHvJdp2UQX5TH Z9ARBpJXXyP6LvIL4iKJRv xECeRMz1r0jciJnwXQPqLX A7r9ibFRisegP6MA3ivo8v kWv9t6fopzZfVKWdPDOedE RFEMDaM0ZxvTahHn7sdUs8 a3dhFnxvdfU9oGLyIsKmJr MyMFxsaTBccmkwIENvUGF0 vUIGMSf5Q822j1toTOPtpx VsbWiRgsqps2trJ244CVEy cGVydzEyMjQwXHBhcGVyaD U7NWBbAE1aymjuTmPeNE1o vfmdJcBrMF4kyin7UyCrWK 1hcmdiNzIwXGhlYWRlcnkw LHMsz4IaahozJI8yL4Vmg0 M6dQ0ejQLzJJZhwQJmPyQi GDRqyk7hjKLwIXdpJUN9EQ VmhfQbe9Qfx3kpPiKnbrHi I8vuG1OoNLYiAEEfZAYjBv EhunUit2Pmw3GrnZQbxIh2 j5vqOBMjPQGgeApmw0fcII F0ITLmA8R9vKVpa8okOSwb BDFdbSG7bvetVMdwEEBkmz M2nslkZRwrCYJdlLA2goqm AAdmJQWcPvR8vqggRVesXJ RsOYM2FVdvo707TLQ0GMrw YmtwYWdlXHBnbmNvbnRccG duZGVjXHBsYWluXHBsYWlu XGYwXGZzMjRccWxccGxhaW 9dHlLhKvGmLfqyAQ0eJEKv Q3dyyJUlJVIfVFKqD8wvOg KlzZ0tgIwaWRpdNkHtKkIf SxNXdXLpbH08NQSbfgE4MP Bsu27zl1TstTswmdKbJGAe DNnoA0a4EVKhDXXyRDO4c6 Udt0LmsQ7fbI8iwEsupW0y oUKfiOQ8wzyqk9Cbp4HyC5 lhbCBzdGFpbnMuXHBsYWlu XGYxXGZzMjJcbGFuZzEwMz NcaGljaFxmMVxkYmNoXGYx DAzyV7fgTjYhC4GhKCMfQw IcrVLcH7ylxLNsYPCnjbef bGFpblxmMVxmczIyXGxhbm hgOZJvUItxW2zoEoBfVXLu xYtrAMuly1TkVIXtNFJdXw xvtiMyKMIcpoKzg3ikD3dq QWCrTUJ7JF3ajxTuBzWeBB 8buZ50b7Dof74gn77ctB7a dTFlpuIzV55vjUQxsQUlc9 MiQZDfxbJipRN3ZBYlLGgk geubq7p7iWU7uZDqkFZfiG W8vASqkICaXYRBiMOsTFJb b231yq2dUFHqnJJohwIajF 6fEWgzozhqhQBmWY2gXFBj ZWPgQAWvKQ91qkDwXJ6ycF Anc1vgugRboNPwz5ZzcFN9 VSBehPMzhnamJd4jVD72DO EoIIuqoW5bxOXoxzBiPZ8m DX5cA9W6rOWwHMRjyjRnq9 usIRkqPV5iDRLlwEsaBtuf TZDxGINvigAfmBT2HXObqA putR9xSeAiFyWjXwsgMJ7n FFQoA9iivKQtPIHvYHRaO5 gsQfQpcV5tfHxyNBjiDnSb ZnMyMlxsdHJjaFxwYXJccG rnoF0xQcImLsNaLgobTC2n BMVgY8cvyFCiVWMqWZEdP7 mrHxCuhP2sbRxrBEcgNgMl ZnMyMiAgXHBsYWluXGYxXG ZzMjJcbGFuZzEwMzNcaGlj aFxmMVxkYmNoXGYxXGxvY2 srUlSfS8XxPCCkVmRbaKSr O7lxbNJkCONoWZjmKYOyLV ZzMjJcbGFuZzEwMzNcaGlj aFxmMVxkYmNoXGYxXGxvY2 imDsRsM9XqKTUuOsYdXC4x mA9tqOxaiU0cyZLgdHR1lw rsaQLpeR4xC3XhTBAxo0Aw kkrjl0KsTWNvdnWivm7mJM UpzYVVFQbxs1DaQ4ZsZOt6 y0QmnJmzpT2eXyScUgMkPs dkIH5wGOQxO8degXIeLQEj CLXwQ0ysSuOmsA0fsAxoRO niQaFbWrCoZlg4RDPfJhKk JzkyXHBsYWluXGYxXGZzMj JcbGFuZzEwMzNcaGljaFxm YNpgLsIpRZPzGZmlC9ywFt PkI3UjIJFtRlIaepBDESQr H4WgJQWfixTakwlrCQJ0hZ 3hh9y0OVwxQb7bLSMrifcl v1bxzjYdzDZzo2KrACCmar Lxk7OeDOCrhuUesOUzGOGh spUgsi3ogsSmITAsGQUcK1 NzlkzuxNoeidN1BFFwDYNq rTAedHgaAXFhUOy3EVkpdy Ici0YpYeZeydCesHZyxpJw AG0lAUFukGRnpuUiSIU3WU YhBQYNSyEbWRBea2JbKM2y CXJyvAsuFKHkhF5rs0XfEH Nqp18yXXPvOUEGOZNhoFLl IGRldGVybWluZWQgdGhhdC QiaXJeUVVaIKQxPO5jZWQq fyHezGDyk6MbxDMbwgAyn3 LuphVuZRZjQQK1MxSYjGMu vMTdbVXvoyN2e2SnVTIsqs XsaDwgpXHdgYByzAWna6Wr lu6gJEWub8flzGbjGD9fnX BiZSByZWdhcmRlZCBhcyBp wtWvz3PwG5O9mG2vZLmac4 CjNg5oBQJzf9XimxJrKnRZ cSwiSSpaNf7bQXCyeryhhA AjI4FzrZmwiQDgZFKqJFRw IHRoZSBDbGluaWNhbCBMYW JqqaN4k5X3ZXhseAEnpyCy GQ34FEGkFH1fsJDbhKSqi6 WkSAj2QBFwR1zXJM23HIkq YXMgcXVhbGlmaWVkIHRvIH JgtaRmzj0jeDgsgTXkm30v bPX8sQD8CSQfcN0bK1CpSB ztTe1eKMGasprwuBEwoZho Es5owEvqqN1vNoHgWtTrWp qhJT3hBYCuM8vjwNEhWTXu FTQvM8zxSrFzgE5ilFzpIo xmczIyXHBhclxwYXJkXHBs YWluXGYwXGZzMjRccGxhaW 0rMeBnQyPlUIxtXSE5 Gross assessment was [facility] performed at ([facility], = 9801) Department of Pathology, [address] [place] [address], [place] [address], Technical component was [facility] performed at ([facility], = 5817) Department of Pathology, [address] [place] [address], Professional component [facility]'s was performed at ([facility], code = 2779) Department of Pathology, [address] [place] [address], [facility] [id number] 11:46:00Surgical Pathology Report Case: [id number] Authorizing Provider: Sydney Gonzalez MD Collected: 03/03/2020 02:37 PM Ordering Location: [facility] Endoscopy Received: 03/04/2020 08:23 AM Services Pathologist: [...] OR MALIGNANCY. Signing Pathologist Direct Phone Line: [phone] signed by Chani Rincon MD on 03/07/2020 at 11:46 [id number] X 13, [id number] X 2Screening for viral disease, ulcerative proctitis [...] filtered and submitted in toto in M1. NITHYA/Davideformed.The interpretatio n of this case included the use of immunohistochemistry or special stains.Control Slides Examined: In-house known positive controls were evaluated along with the test tissue. These control slides runalongside of the patients sample show appropriate staining. Internal positive and negative controls when available are evaluated Immunohistochemistry technical testing was performed at [facility], Pathology Laboratory where it was developed [...] qualified to perform high complexity clinical laboratory testing.[facility], Department of Pathology, [address] [place] [address], [facility], [address] [place] [address], [facility], [facility] of Path[facility], [address] [place] [address], PGZI , urine 2020-03-03 07:27:00 Test Item Value Reference Range Interpretation Comments Test Urine, POC (test Negative code = 9678343) Control line present?, POC (test Yes code = 6962481) Background clear?, POC (test code Yes = 8927242) UPT Cassette Lot #, POC (test code 1967148 = [id number]) UPT Cassette Expiration Date, POC 04-23-2021 (test code = 3733151) Lab Interpretation (test code = Normal 08790-5) [facility] [facility] 29 [id number] 13:33:12 Test Item Value Reference Range Interpretation Comments Pain Interference: (test code = Pain 73.7 1 N Interference:) Pain Intensity: (test code = Pain 53.7 1 N Intensity:) Physical Function: (test code = 21.3 1 N Physical Function:) Satisfaction Role: (test code = 35.6 1 N Satisfaction Role:) [facility] Shoulder wo contrast [id number] 11:13:00 PROCEDURE INFORMATION:Exam: MR Right Upper Extremity [...] the proximalhumerus.Meliton Rush MD On 04/24/2019 13:45:44; -[id number]--[id number] by: Meliton Rush MDDictated Date/time: 04/24/19 13:45Electronically Signed by: Meliton Rush MD 04/24/1913:45FINAL REPORT [facility]] CULTURE, URINE, [id number] 12:00:00 Test Item Value Reference Range Interpretation Comments CULTURE (test code = See Comment CULTURE , URINE, CULTURE) ROUTINE LYUBOV RO NUMBER: [id number] TEST STATUS: FINAL SPECIMEN SOURCE: URINE , CLEAN CATCH SPECIMEN QUALITY: ADEQU ATE RESULT: Multiple organi sms present, each l ess than 10,000 CFU/mL . These organisms, comm only found on external and internal genita steven, are considered to be colonizers. No further testing perform ed. [facility][] DRUG SCREEN,COMPREHENSIVE (URINE)2019-02-11 14:49:00 Test [...] FOR SPECIFICS ONWHI CH DRUGS ARE TESTED. [facility] Abdomen Doppler [id number] 11:02:00Patient Name: TODD GASPAROB: 1980; Age: 38 years y/o FemaleMR: [id number] ULTRASOUND with Doppler studiesHistory: splenomegaly Technique: The [...] right nephrectomy.3. Normal Dopplerstudies as described above.SL: [id number]--Fbus by: Kwaku Hedrick MDDictated Date/time: 02/10/19 15:13Electronically Signed by: Kwaku Hedrick MD 02/10/1915:20FINAL REPORT [facility]] CALPROTECTIN, [id number] 14:43:01 Test Item Value Reference Range Interpretation Comments Calprotectin (test 30 ug/g 0-120 Concentra tion code = Calprotectin) Interpr etation Follow-Up<16 - 50 ug/g Normal None>50 -120 ug/g B orderline Re-evaluate in 4-6 weeks >120 u g/g Abnormal Repeat as clinically indicatedPerfor med At: BN [facility] [address] [place], [place] [id number] ra Shanthi SANDOVAL Ph:[phone] [facility] Clavicle Bilateral [id number] 14:03:00 Clinical Indication: - M89.8X1 Other specified disorders of bone, shoulder,M79.18 Myalgia, other site, M25.50 Pain in unspecified joint, M94.0 Chondrocostal junction syndrome [Tietze]; claviclepain for 5 daysComparison: NoneTECHNIQUE: AP and axial views of the bilateral claviclesFINDINGS: No acute fracture or malalignment is identified. Thesternoclavicular joints are within normal limits as are the acromioclavicularjoints.No soft tissue abnormality is identified.IMPRESSION: No acute abnormality.SL: [id number] by: Oj Boswell MDDictated Date/time: 01/30/19 14:33Electronically Signed by: Oj Boswell MD 01/30/1914:34FINAL [facility]PORTUn[facility]] HEPATIC FUNCTION [id number] 14:45:01 Test Item Value Reference Range Interpretation Comments Total Protein (test 7.5 g/dl 6.4-8.4 code = 2885-2) Albumin Lvl (test 3.9 g/dl 3.5-5.0 code = 1751-7) Bili Total (test 0.5 mg/dl 0.2-1.3 code = 1974-2) Bilirubin Direct 0.1 mg/dl 0.0-0.3 (test code = 1967-7) Bilirubin Indirect 0.4 mg/dl 0.0-1.0 (test code = 1970-) Alk Phos (test code 53 u/l 39-136 The pedi atric reference = 1783-0) ranges for this test represent a CLSI-basedtrans ference of the CALIPER rohan abase of pediatric refer ence intervals to eSiemens Stephenson analyzer (Clinical Biochemistry 46 (2013): 3114-5426). [facility] has not internally validated these reference ranges and therefore they should be used only in e context of a thoroughcl inical assessment. AST (test code = 11 u/l 0-37 93060-1) ALT (test code = 20 u/l 0-65 1743-4) Globulin (test code 3.6 g/dl 2.7-4.2 = 47991-8) A/G Ratio (test 1.1 0.7-1.6 code = 1759-0) [facility][H] Celiac Pnl w/Rflx Endomy Ab [id number] 14:45:01 Test Item Value Reference Range Interpretation Comments IgA Lvl (test code = 2458-8) 234.0 mg/dl 68.0-378.0 Gliadin (Deamidated Peptide)IgA <0.2 <=14.9 Ab (test code = 80811-3) Gliadin (Deamidated Peptide)IgG 0.6 U/ml <=14.9 Ab (test code = 31622-2) Tissue Transglutaminase (tTG) IgA <0.5 <=14.9 (test code = 28525-9) Tissue Transglutaminase (tTg) IgG <0.8 <=14.9 (test code = 48741-1) [facility][H] LUNDBERG [id number] 14:45:01 Test Item Value Reference Range Interpretation Comments Bili Total (test code 0.5 mg/dl 0-1 = 1975-2) ALT (test code = 20 u/l 0-65 1743-4) AST (test code = 11 u/l 0-37 35224-8) Fibrosis Score (test 0.04 0.00-0.21 code = [...] Macroglob (test 224 mg/dl 110-276 code = 75648-4) Haptoglobin; Above 208 mg/dl 34-200 High Threshold (test code = 67517-0) Apolipoprotein A-1 170 mg/dl 116-209 (test code = Apolipoprotein A-1) GGT (test code = 18 {iu/l} 0-60 2324-2) Chol (test code = 137 mg/dl 291-408 4111-3) Glucose Lvl (test 96 mg/dl 65-99 Adult refe rence range code = 2345-7) values reflec t the clinical guidel inesof the [place] Di abetes Association. Trig; Above High 182 [...] q uestions regarding this report please contact [employer] service at . Referenc es:1. Latanya Noe. [...] 1-230X-6 -34.Performed A t: BN [facility] [address] [place], [place] [id number] susana Maki MD Ph:[phone] [facility][H] CK [id number] 10:21:01 Test Item Value Reference Range Interpretation [...] [facility] (test code = Creatine Aaron [address] Kinase BB) [address] [place], [place] [id number] h CN MD Ph:[phone] rformed At: [facility] [address] [place], [place] [id number] Kyle L MD Ph:[phone] [facility][H] Quantiferon Incubationa w/ Reflex to TB Gold [id number] 10:21:01 Test Item Value Reference Range Interpretation Comments Quantiferon Incubation Performed At: H D Incubation (test performed. [facility] code = Quantiferon [address] Incubation) [place], [place] [id number] judith Domínguez MD Ph:[phone] Quantiferon - TB Negative Negative Performed A t: BN Gold Plus (test [facility] code = Quantiferon [address]47 - TB Gold Plus) [place], [place] [id number] Maki MD Ph:[phone] [facility][H] Quantiferon Incubationa w/ Reflex to TB Gold [id number] 10:21:01 Test Item Value Reference Range Interpretation Comments Quantiferon Criteria Comment The Vasquez ntiFERON-TB (test code = Gold Plus resul t is Quantiferon determined Criteria) bysubtracting t he Nil value from [facility] er TB antigen (Ag) tu be.The mitogen [...] BN code = Mitogen - [facility] NIL) [address] [id number] Shanthi SANDOVAL Ph:[phone] [facility] Shoulder series [id number] 10:49:00EXAM: XR SHOULDER 3 VIEWSDATE: 01/13/2019 10:49 [...] 13:48Electronically Signed by: Erik Foster MD 01/13/1913:49FINAL REPORTUnJordan [facility] PhysiciansXRAY Spine lumbar AP lateral [id number] 10:49:00EXAM: XR LUMBAR SPINE 2 VIEWSDATE: 01/13/2019 [...] 17:49Electronically Signed by: Audie Pardo MD 01/13/1917:50FINAL REPORTUnJordan [facility] PhysiciansXRAY Spine cervical 2 or 3 view [id number] 10:49:00EXAM: XR CERVICAL SPINE 3 VIEWSDATE: 01/13/2019 [...] 17:50Electronically Signed by: Audie Pardo MD 01/13/1917:50FINAL REPORTUnMcKay-Dee Hospital CenterXRAY Knee 1-2 Views Bilateral [id number] 10:48:00EXAM: XR BILATERAL KNEE 2 VIEWSDATE: 01/13/2019 [...] 13:29Electronically Signed by: Erik Foster MD 01/13/1913:30FINAL REPORTLayton HospitalXRAY Hip bilateral w pelvis and both lat hips [id number] 10:48:00EXAM: XR BILATERAL HIP 2 VIEWS AND [...] 13:35Electronically Signed by: Erik Foster MD 01/13/1913:37FINAL REPORTUnJordan [facility] PhysiciansXRAY Chest 2 views [id number] 2019-01-13 10:47:00EXAM: XR CHEST 2 VIEWSDATE: 01/13/2019 [...] 12:49Electronically Signed by: Luis A Schumacher MD 01/14/1912:50FINAL REPORTUnJordan [facility]] URINALYSIS, COMPLETE W/REFLEX TO [id number] 10:10:01 Test Item Value Reference Range Interpretation Comments UA Color (test code = 5778-6) Lucero UA Turbidity; Abnormal (test code Marked Clear A = 88173-8) UA Spec Grav; Above High Threshold 1.032 <=1.030 (test code = 5810-7) UA pH (test code = 5803-2) 5.0 5.0-8.0 UA Protein; Abnormal (test code = 30 mg/dl Negative A 43544-8) UA Glucose (test code = 70776-0) Negative Negative UA Ketones; Abnormal (test code = Trace Negative A 33935-6) UA Bili (test code = 5770-3) Negative Negative UA Blood; Abnormal (test code = Large Negative A 5794-3) UROBILINOGEN (test code = 25125-3) <=1.0 0.1-1.0 UA Nitrite (test code = 5802-4) Negative Negative UA Leuk Est (test code = 5799-2) Negative Negative UA RBC; Above High Threshold (test 10 {/HPF} 0-2 code = 46174-2) UA WBC; Above High Threshold (test 8 {/HPF} 0-5 code = 25131-3) UA Bacteria (test code = 87734-8) Few None Seen UA Mucus; Abnormal (test code = Many None Seen A 8247-9) UA Sq Epi (test code = 89846-1) Occasional Few [facility][] PROTEIN, TOTAL W/CREAT, RANDOM URINE 2019-01-13 10:10:01 Test Item Value Reference Range Interpretation Comments U Creatinine (test 303.00 mg/dl No establ ished code = 2161-8) reference ran ge. Urine Protein Level 51.5 mg/dl No estab lished (test code = 2888-6) referen ce ranges. U Prot/Creat (test 0.17 code = 2890-2) [facility][] HEPATITIS B SURFACE ANTIGEN W/REFL CONFIRM 2019-01-13 10:10:01 Test Item Value Reference Range Interpretation Comments Hepatitis B Surface Antigen (test Negative Negative code = 5195-3) [facility]] HEPATITIS C [id number] 10:10:01 Test Item Value Reference Range Interpretation Comments Hepatitis C Antibody (test code = Negative 82547-8) [facility][] CYCLIC CITRULLINATED PEPTIDE (CCP) AB (IGG) 2019-01-13 10:10:01 Test Item Value Reference Range Interpretation Comments Cyclic Citrulline Peptide Antibody <0.5 <=2.9 (test code = 03300-1) [facility][O] Urine Dipstick (In Office)2018-12-29 16:04:00 Test Item Value Reference Range Interpretation Comments Glucose (test code = Glucose) 100 MG/dL LEUKOCYTES (test code = LARGE LEUKOCYTES) NITRITE (test code = 87410-4) POSITIVE UROBILINOGEN (test code = 4.0 E.U./dL 48005-3) PROTEIN (test code = 59042-5) >=300 MG/dL pH (test code = pH) 5.5 URINE BLOOD (test code = 09355-0) SMALL SPECIFIC GRAVITY (test code = >=1.030 2965-2) KETONES (test code = 81291-2) 15 MG/dL BILIRUBIN (test code = 69249-9) MODERATE COLOR URINE (test code = 5778-6) LUCERO APPEARANCE (test code = 5767-9) CLEAR [facility]] URINALYSIS, [id number] 15:10:01 Test Item Value Reference Range Interpretation Comments UA Turbidity; Abnormal (test code Slight Clear A = 22850-1) UA Spec Grav; Above High Threshold 1.040 <=1.030 (test code = 5810-7) UA pH (test code = 5803-2) 5.0 5.0-8.0 UA Protein; Abnormal (test code = 100 mg/dl Negative A 67517-3) UA Glucose (test code = 21048-0) Negative Negative UA Ketones (test code = 13010-2) Negative Negative UA Bili (test code = 5770-3) Negative Negative UA Blood; Abnormal (test code = Small Negative A 5794-3) UROBILINOGEN; Above High Threshold 4.0 mg/dl 0.1-1.0 (test code = 95490-6) UA Nitrite; Abnormal (test code = Positive Negative A 5802-4) UA Leuk Est (test code = 5799-2) Negative Negative UA RBC; Above High Threshold (test 27 {/HPF} 0-2 code = 40986-8) UA WBC; Above High Threshold (test 14 {/HPF} 0-5 code = 40183-6) UA Bacteria (test code = 19450-9) Occasional None Seen UA Mucus; Abnormal (test code = Moderate None Seen A 8247-9) UA Sq Epi; Abnormal (test code = Moderate Few A 24166-1) UA Color (test code = 5778-6) Lucero [facility]] CBC (INCLUDES DIFF/PLT)2018-12-29 15:10:01 Test Item Value Reference Range Interpretation Comments WBC; Above High Threshold (test 10.8 {K/CMM} 3.7-10.4 code = 6690-2) RBC (test code = 789-8) 4.47 {M/CMM} 4.20-5.40 Hgb (test code = 718-7) 14.4 g/dl 12.0-16.0 Hct (test code = 50715-4) 42.7 % 36.0-48.0 MCV (test code = 787-2) 95.6 fL 80.0-98.0 MCH; Above High Threshold (test 32.1 pg 27.0-31.0 code = 785-6) MCHC (test code = 786-4) 33.6 g/dl 32.0-36.0 RDW (test code = 788-0) 13.7 % 11.5-14.5 Platelet (test code = 53597-3) 335 {K/CMM} 133-450 Mean Platelet Volume (test code 8.3 fL 7.4-10.4 = 20197-6) [facility]] [id number] 15:10:01 Test Item Value Reference Range Interpretation Comments Segmented Neutrophils (test code 64.3 % 45.0-75.0 = 37393-4) Monocytes (test code = 84976-0) 7.6 % 2.0-12.0 Lymphocytes (test code = 72719-6) 26.8 % 20.0-40.0 Eosinophils (test code = 31126-7) 0.7 % 0.0-4.0 Basophils (test code = 706-2) 0.6 % 0.0-1.0 Segs-Bands # (test code = 6.9 {K/CMM} 1.5-8.1 62187-7) Lymphocytes # (test code = 2.9 {K/CMM} 1.0-5.5 03648-4) Monocytes # (test code = 25967-9) 0.8 {K/CMM} 0.0-0.8 Eosinophils # (test code = 0.1 {K/CMM} 0.0-0.5 05855-8) Basophils # (test code = 12192-7) 0.1 {K/CMM} 0.0-0.2 [facility][Q] HIV AB, HIV 1/2, EIA, WITH [id number] 15:10:01 Test Item Value Reference Range Interpretation Comments HIV Ag/Ab 4th Gen Negative Negative HIV test r esults should be (test code = considered posi tive only 80698-2) when both the s creening andthe confirma tory tests are positive. A negative confirmatory te st in patientswith a positive screening test does not exclude HIV inf ection. If clincallywarran svetlana, an HIV RNA quantitativ e test should be order ed. [facility]] CMP [id number] 15:10:01 Test Item Value Reference Range Interpretation Comments Sodium Level 143 {mEq/l} 135-145 (test code = 2951-2) Potassium Level 4.2 {mEq/l} 3.5-5.1 (test code = 2823-3) Chloride Level 107 {mEq/l} 95-109 (test code = 5-0) Carbon Dioxide 25 {mEq/l} 24-32 (test code = 2027-9) AGAP (test code = 15.2 {mEq/l} 10.0-20.0 36528-9) Glucose Lvl; 106 mg/dl 70-99 Adult reference range Above High values reflect the Threshold (test clinical magali delinesof the code = 2345-7) [place] [employer]. Creatinine Lvl 1.10 mg/dl 0.50-1.40 (test code = 2160-0) Blood Urea 21 mg/dl 7-22 Nitrogen (test code = 3094-0) BUN/Creatinine 19 6-25 Ratio (test code = 3097-3) Total Protein 7.1 g/dl 6.4-8.4 (test code = 2885-2) Albumin Lvl (test 3.7 g/dl 3.5-5.0 code = 1751-7) Globulin (test 3.4 g/dl 2.7-4.2 code = 50721-7) A/G Ratio (test 1.1 0.7-1.6 code = 1759-0) Calcium Level 9.3 mg/dl 8.5-10.5 Total (test code = 81426-0) ALT (test code = 47 u/l 0-65 1743-4) AST (test code = 18 u/l 0-37 00406-6) Alk Phos (test 56 u/l 39-136 code = 1783-0) Bili Total (test 0.3 mg/dl 0.2-1.3 code = 1975-) eGFR (test code = 64 The eGFR i s calculated 88890-4) {ML/MIN/1.7} using the CKD-E PI formula. In [...] be multiplied by t he estimated BMI. [facility][Q] LIPID PANEL WITH REFLEX TO DIRECT LDL 2018-12-29 15:10:01 Test Item Value Reference Range Interpretation Comments LDL (test code = 18267-0) 36 mg/dl <=99 Chol (test code = 2093-3) 124 mg/dl <=199 Trig; Above High Threshold (test 223 mg/dl <=149 code = 2571-8) HDL Cholesterol; Below Low 43 mg/dl >=61 Threshold (test code = 2085-9) CHD Risk; Below Low Threshold (test 2.88 3.90-5.80 code = 26298-3) VLDL (test code = VLDL) 45 [facility]] TSH, 3RD GENERATION W/REFLEX TO FT4 2018-12-29 15:10:01 Test Item Value Reference Range Interpretation Comments TSH (test code = 53562-9) 2.550 {uIU/ml} 0.360-3.740 [facility][H] CRP, hs, Cardiac [id number] 15:10:01 Test Item Value Reference Range Interpretation Comments C-Reactive Protein High 25.9 mg/L Low Risk: Sensitivity (test code = < 1.0 mg/LAverage 33920-0) Risk: 1.0 - 3.0 mg/LHigh Risk: >3.0 mg/LInflammatio n: >10.0 mg/L [facility]] SED RATE BY MODIFIED [id number] 15:10:01 Test Item Value Reference Range Interpretation Comments Sedimentation Rate (test code = 17 {mm/hr} 0-20 15034-0) [facility]] HEMOGLOBIN [id number] 15:10:01 Test Item Value Reference Range Interpretation Comments Hemoglobin A1c; Above High Threshold 5.7 % <=5.6 (test code = 4548-4) [facility]] ABDOUL PANEL, [id number] 15:10:01 Test Item Value Reference Range Interpretation Comments Antinuclear Antibody Negative Negative Because the ABDOUL was Screen (test code = Negative , the Reflex 66489-5) assays for Anti-dsDNA, SM/ MANAGER ELECTRONIC, Deb/La (SSA/S SB) were not perfor med. [facility]
--- NOTE | 2020-08-12 17:32 | RAD REPORT ---
EXAM DESCRIPTION: RAD - Foot Left 3 View - 08/12/2020 5:25 pm CLINICAL HISTORY: Left Foot pain FINDINGS: No fracture or dislocation is seen. No bony destructive lesions seen. Moderate plantar calcaneal spur. . Bones are osteoporotic
[2020-08-12] MEDS ORDERED: HYDROCODONE/APAP 5/325 MG TAB ONE (20:11)
--- NOTE | 2020-08-12 20:27 | ER ---
Nurse's Notes [facility] Name: Emilia Lora Age: 40 yrs Sex: Female : 1980 Arrival Date: 08/12/2020 Time: 14:32 Bed 13 Private MD: Diagnosis: Pain in left toe(s) Presentation: 08/12 14:37 Chief complaint: Patient states: last Prudencio went to the doctor bc there was a black iw spot on her left big toe, was diagnosed with pseudomonas and had abx prescribed and has not been delivered to pharmacy. Coronavirus screen: At this time, the client does not indicate any symptoms associated with coronavirus-19. Ebola Screen: Patient negative for fever greater than or equal to 101.5 degrees Fahrenheit, and additional compatible Ebola Virus Disease symptoms Patient denies exposure to infectious person. Patient denies travel to an Ebola-affected area in the 21 days before illness onset. No symptoms or risks identified at this time. Initial Sepsis Screen: Does the patient meet any 2 criteria? No. Patient's initial sepsis screen is negative. Does the patient have a suspected source of infection? No. Patient's initial sepsis screen is negative. Risk Assessment: Do you want to hurt yourself or someone else? Patient reports no desire to harm self or others. Onset of symptoms was August 05, 2020. 14:37 Method Of Arrival: Ambulatory iw 14:37 Acuity: VINITA 3 iw Historical: - Allergies: 14:40 Celebrex; iw 14:40 CEPHALOSPORINS; iw 14:40 Cipro; iw 14:40 Keflex; iw 14:40 Levofloxacin; iw 14:40 Sulfasalazine; iw 14:40 Sulfa (Sulfonamide Antibiotics); iw - Home Meds: 14:42 Eliquis 5 mg Oral tab 1 tab 2 times per day [Active]; propranolol 20 mg Oral tab 1 tab iw 3 times per day [Active]; mesalamine oral oral once daily [Active]; Dexilant oral oral once daily [Active]; Lamictal Oral [Active]; Trazodone Oral [Active]; gabapentin oral oral [Active]; - PMHx: 14:40 DVT; hypermobility sydrome; PE; Rheumatoid Arthritis; rib cage cartlige swelling; Sleep iw Apnea; ulcerative colitis; - PSHx: 14:42 RIGHT KIDNEY TAKEN OUT; LEFT ANKLE; iw - Immunization history:: Adult Immunizations up to date. - Social history:: Smoking status: Patient denies any tobacco usage or history of. Screenin:13 Abuse screen: Denies threats or abuse. Nutritional screening: No deficits noted. ll2 Tuberculosis screening: No symptoms or risk factors identified. Fall Risk None identified. Assessment: 19:20 General: Appears in no apparent distress. Behavior is calm, cooperative, appropriate ll2 for age. Pain: Complains of pain in Right first toenail. Neuro: Level of Consciousness is awake, alert, obeys commands, Oriented to person, place, time, situation. Cardiovascular: Patient's skin is warm and dry. Respiratory: Airway is patent Respiratory effort is even, unlabored, Respiratory pattern is regular, symmetrical. Derm: Skin is intact, is healthy with good turgor, Skin is pink, warm \T\ dry. Musculoskeletal: Circulation, motion, and sensation intact. Range of motion: intact in all extremities. Vital Signs: 14:37 BP 128 / 81; Pulse 89; Resp 16; Temp 98.7; Pulse Ox 96% on R/A; Weight 145.15 kg; iw Height 5 ft. 8 in. (172.72 cm); 20:13 BP 124 / 84; Pulse 88; Resp 18; Pulse Ox 97% on R/A; ll2 14:37 Body Mass Index 48.66 (145.15 kg, 172.72 cm) iw ED Course: 14:32 Patient arrived in ED. ag5 14:40 Triage completed. iw 14:41 Arm band placed on. iw 17:23 Foot Left 3 View XRAY In Process Unspecified. EDMS 19:12 Maldonado Bell MD is Attending Physician. [facility] 19:57 Pippa Almendarez, RN is Primary Nurse. ll2 20:13 Patient has correct armband on for positive identification. Bed in low position. Call ll2 light in reach. Side rails up X 1. Pulse ox on. NIBP on. 20:13 No provider procedures requiring assistance completed. Patient did not have IV access ll2 during this emergency room visit. 20:26 Fidel Agudelo DPM is Referral Physician. 7 Administered Medications: No medications were administered Outcome: 20:26 Discharge ordered by . [facility] 20:59 Patient left the ED. ll2 Signatures: Dispatcher [employer] Terri Klein RN RN iw Luma Catherine ag5 Pippa Almendarez RN RN ll2 Maldonado Bell MD MD mh7 Corrections: (The following items were deleted from the chart) 14:41 14:37 Pulse 89bpm; Resp 16bpm; Pulse Ox 96% RA; Temp 98.7F; 145.15 kg; Height 5 ft. 8 iw in.; BMI: 48.6; iw
--- NOTE | 2020-08-12 20:27 | EDPHYS ---
Physician Documentation [facility] Name: Emilia Lora Age: 40 yrs Sex: Female : 1980 Arrival Date: 08/12/2020 Time: 14:32 Bed 13 Private MD: ED Physician Maldonado Bell HPI: 08/12 20:08 This 40 yrs old Female presents to ER via Ambulatory with complaints of Wound mh7 Infection. 20:08 The patient presents with pain, that is acute, Possible infection. The complaints mh7 affect the Left great toe. Context: The problem was sustained at an unknown location, resulted from an unknown cause, Mechanism of Injury: Unknown the patient can fully bear weight, the patient is able to ambulate, without difficulty. 20:10 Onset: The symptoms/episode began/occurred 1 week(s) ago. Modifying factors: The mh7 symptoms are alleviated by nothing, the symptoms are aggravated by nothing. Associated signs and symptoms: Pertinent negatives: calf tenderness, fever, nausea, numbness, rash, swelling, tingling, vomiting, warmth, weakness. Severity of symptoms: At their worst the symptoms were mild, 3 day(s) ago, in the emergency department the symptoms are actually worse, mildly. The patient has been recently seen by a physician: 7 day(s) ago, [facility]. Patient seen at outside clinic one week ago for small dark area on left big toe medial skin adjacent to nail. States that clinic ordered a special antibiotic for possible infection but office has been closed so she has not been able to order picker the medication. States that she has had mildly increased pain to area. Denies redness, swelling, fever, nausea, vomiting, pus discharge, numbness/tingling.. Historical: - Allergies: 14:40 Celebrex; iw 14:40 CEPHALOSPORINS; iw 14:40 Cipro; iw 14:40 Keflex; iw 14:40 Levofloxacin; iw 14:40 Sulfasalazine; iw 14:40 Sulfa (Sulfonamide Antibiotics); iw - Home Meds: 14:42 Eliquis 5 mg Oral tab 1 tab 2 times per day [Active]; propranolol 20 mg Oral tab 1 tab iw 3 times per day [Active]; mesalamine oral oral once daily [Active]; Dexilant oral oral once daily [Active]; Lamictal Oral [Active]; Trazodone Oral [Active]; gabapentin oral oral [Active]; - PMHx: 14:40 DVT; hypermobility sydrome; PE; Rheumatoid Arthritis; rib cage cartlige swelling; Sleep iw Apnea; ulcerative colitis; - PSHx: 14:42 RIGHT KIDNEY TAKEN OUT; LEFT ANKLE; iw - Immunization history:: Adult Immunizations up to date. - Social history:: Smoking status: Patient denies any tobacco usage or history of. ROS: 20:10 Constitutional: Negative for fever, chills, and weight loss, Eyes: Negative for injury, mh7 pain, redness, and discharge, ENT: Negative for injury, pain, and discharge, Neck: Negative for injury, pain, and swelling, Cardiovascular: Negative for chest pain, palpitations, and edema, Respiratory: Negative for shortness of breath, cough, wheezing, and pleuritic chest pain, Abdomen/GI: Negative for abdominal pain, nausea, vomiting, diarrhea, and constipation, Back: Negative for injury and pain, : Negative for injury, bleeding, discharge, and swelling, Neuro: Negative for headache, weakness, numbness, tingling, and seizure, Psych: Negative for depression, anxiety, suicide ideation, homicidal ideation, and hallucinations, Allergy/Immunology: Negative for hives, rash, and allergies, Endocrine: Negative for neck swelling, polydipsia, polyuria, polyphagia, and marked weight changes, Hematologic/Lymphatic: Negative for swollen nodes, abnormal bleeding, and unusual bruising. Exam: 20:10 Constitutional: This is a well developed, well nourished patient who is awake, alert, mh7 and in no acute distress. Head/Face: Normocephalic, atraumatic. Eyes: Pupils equal round and reactive to light, extra-ocular motions intact. Lids and lashes normal. Conjunctiva and sclera are non-icteric and not injected. Cornea within normal limits. Periorbital areas with no swelling, redness, or edema. Neck: Trachea midline, no thyromegaly or masses palpated, and no cervical lymphadenopathy. Supple, full range of motion without nuchal rigidity, or vertebral point tenderness. No Meningismus. Chest/axilla: Normal chest wall appearance and motion. Nontender with no deformity. No lesions are appreciated. Cardiovascular: Regular rate and rhythm with a normal S1 and S2. No gallops, murmurs, or rubs. Normal PMI, no JVD. No pulse deficits. Respiratory: Lungs have equal breath sounds bilaterally, clear to auscultation and percussion. No rales, rhonchi or wheezes noted. No increased work of breathing, no retractions or nasal flaring. Abdomen/GI: Soft, non-tender, with normal bowel sounds. No distension or tympany. No guarding or rebound. No evidence of tenderness throughout. Back: No spinal tenderness. No costovertebral tenderness. Full range of motion. 20:10 Neuro: Awake and alert, GCS 15, oriented to person, place, time, and situation. Cranial nerves II-XII grossly intact. Motor strength 5/5 in all extremities. Sensory grossly intact. Cerebellar exam normal. Normal gait. Psych: Awake, alert, with orientation to person, place and time. Behavior, mood, and affect are within normal limits. 20:10 Musculoskeletal/extremity: Extremities: noted in the medial aspect left great toe adjacent to nail: tenderness, less than 1 cm dark crusted lesion without erythema, increased warmth, induration, or pus discharge. Neurovascularly intact, ROM: intact in all extremities, Circulation is intact in all extremities. Pulses: are normal with no appreciated deficits, Perfusion: the patient is normally perfused throughout, Perfusion: the extremity is normally perfused throughout, Calf tenderness, is absent, Edema, is not appreciated, Sensation intact. Compartment Syndrome exam of affected extremity: is normal. no numbness, no tingling, no sensation deficit, no palor, no weak pulses, Joints: All joints appear normal with full range of motion. Weight bearing: able to fully bear weight, without difficulty, DVT Exam: no pain, no swelling, no tenderness, negative Homans' sign noted on exam, no appreciated bluish discoloration, no erythema, no increased warmth, Calves: are non-tender, have equal circumference, Nails: 20:10 Skin: Wound recheck: small, less 1 cm dark crusted lesion distal medial aspect of left great toe adjacent to nail. Mild tenderness, no erythema, swelling, induration, pus discharge, neurovascularly in tact.. Vital Signs: 14:37 BP 128 / 81; Pulse 89; Resp 16; Temp 98.7; Pulse Ox 96% on R/A; Weight 145.15 kg; iw Height 5 ft. 8 in. (172.72 cm); 20:13 BP 124 / 84; Pulse 88; Resp 18; Pulse Ox 97% on R/A; ll2 14:37 Body Mass Index 48.66 (145.15 kg, 172.72 cm) iw MDM: 20:10 Differential diagnosis: fracture, sprain, foreign body, penetrating trauma, arthritis, mh7 gout, cellulitis. Data reviewed: vital signs, nurses notes, radiologic studies, plain films. Data interpreted: Pulse oximetry: on room air is 97 %. Interpretation: normal. 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 Response to treatment: the patient's symptoms have markedly improved after treatment. 20:26 Patient medically screened. 7 08/12 15:59 Order name: Foot Left 3 View XRAY; Complete Time: 19:55 iw Administered Medications: No medications were administered Disposition: 08/12/20 20:26 Discharged to Home. Impression: Pain in left toe(s). - Condition is Stable. - Discharge Instructions: Foot Pain. - Prescriptions for Tylenol- Codeine #3 300-30 mg Oral Tablet - take 1 tablet by ORAL route every 6 hours As needed; 12 tablet. - Work release form, Medication Reconciliation Form, Thank You Letter, Antibiotic Education, Prescription Opioid Use form. - Follow up: Private Physician; When: 1 - 2 days; Reason: Worsening of condition, Recheck today's complaints, Continuance of care, Re-evaluation by your physician. Follow up: Fidel Agudelo DPM; When: 2 - 3 days; Reason: Worsening of condition, Recheck today's complaints. - Problem is an ongoing problem. - Symptoms have improved. Signatures: Dispatcher [employer] EDMS Terri Mitchell, MITALI RN Pippa Almendarez RN RN ll2 Maldonado Bell MD MD 7 Corrections: (The following items were deleted from the chart) 20:59 20:26 08/12/2020 20:26 Discharged to Home. Impression: Pain in left toe(s). Condition ll2 is Stable. Forms are Work release form, Medication Reconciliation Form, Thank You Letter, Antibiotic Education, Prescription Opioid Use. Follow up: Private Physician; When: 1 - 2 days; Reason: Worsening of condition, Recheck today's complaints, Continuance of care, Re-evaluation by your physician. Follow up: Fidel Agudelo; When: 2 - 3 days; Reason: Worsening of condition, Recheck today's complaints. Problem is an ongoing problem. Symptoms have improved. 7
[2020-08-12 21:47] VITALS: BP 128/81; TEMP 98.7; O2SAT 96
== END 2020-08-12 20:59 | disposition home or self-care (01) ==
LOC: ER 14:27
DX: M79.675 Pain in left toe(s) (principal); I82.409 Acute embolism and thrombosis of unspecified deep veins of unspecified lower extremity; K51.90 Ulcerative colitis, unspecified, without complications; Z88.1 Allergy status to other antibiotic agents; Z88.8 Allergy status to other drugs, medicaments and biological substances; Z88.2 Allergy status to sulfonamides
CPT/HCPCS: 99283

== ENCOUNTER 2022-06-28 13:04 | Emergency (ER) | payer OTHER ==
--- OUTSIDE RECORDS SUMMARY | 2022-06-28 13:26 | XMS REPORT | Continuity of Care Document ---
:1980 Author Organization [facility] t Address [address] [place] [address] Care Team Providers Name Role Phone RANJANA PICKARD Primary Care Physician Unavailable SYDNEY GONZALEZ Attending Clinician Unavailable ANDREA OBANDO Attending Clinician Unavailable DAVID GILMAN Attending Clinician Unavailable HECTOR STORM Attending Clinician Unavailable ELOISE DAMON Attending Clinician Unavailable ANGELES PASCAL Attending Clinician Unavailable MULU HARE Attending Clinician Unavailable TRACIE ROSARIO Attending Clinician Unavailable JHOANA QUIGLEY Attending Clinician Unavailable KERRY HORVATH Attending Clinician Unavailable UNKNOWN, ATTENDING Attending Clinician Unavailable TORIE DONOHUE Attending Clinician Unavailable DEREK TIRADO Attending Clinician Unavailable DEREK TIRADO Attending Clinician Unavailable SYDNIE GALLEGOS Attending Clinician Unavailable PERCY HINOJOSA Attending Clinician Unavailable Jose Antonio Meredith MD Attending Clinician [phone] JOSE ANTONIO MEREDITH Attending Clinician UnavailBenjamin Campos MD Attending Clinician Ziyad Allen NP Attending Clinician LEELA DUNN Attending Clinician Unavailable Dmitri Mckeon MD Attending Clinician DMITRI MCKEON Attending Clinician Unavailable MITA JIMENEZ Attending Clinician Unavailable Sydnie Gallegos MD Attending Clinician Caleb JASMINE, Axel Mahajan Attending Clinician Unavailable Doctor Unassigned, [place] Attending Clinician Unavailable HAYLEY VAZQUEZ Attending Clinician Unavailable JOSE ANTONIO MEREDITH Attending Clinician Unavailable PARISH FAM Attending Clinician Unavailable Gwyn Noe MD, [place] Attending Clinician MARK SCHAEFFER Attending Clinician Unavailable PHONG ORTIZYI Attending Clinician Unavailable Ilia Pascal MD Attending Clinician ILIA PASCAL Attending Clinician Unavailable ILIA PASCAL Attending Clinician Unavailable Willard Bueno MD Attending Clinician THIERNO CASTILLO Attending Clinician Unavailable MINGO SHAFFER Attending Clinician Unavailable PABLO FERNANDEZ Attending Clinician Unavailable SAAD AMAYA Attending Clinician Unavailable Oj Lin MD Attending Clinician Percy Hinojosa MD Attending Clinician OJ LIN Attending Clinician Unavailable OJ LIN Attending Clinician Unavailable LYNDON DAVIS Attending Clinician Unavailable LEONORA SMITH Attending Clinician Unavailable Shelly Byrd RD Attending Clinician Ricci Benedict MD Attending Clinician [phone] ALLYSON MENA Attending Clinician Unavailable Allyson Mena MD Attending Clinician Yuli Robles MD Attending Clinician Donny Feng MD Attending Clinician DONNY FENG Attending Clinician Unavailable PILI SPRINGER Attending Clinician Unavailable Pili Springer MD Attending Clinician [phone] Brandt Alvarado MD Attending Clinician SHELLY BYRD Attending Clinician Unavailable JOE BLANCA Attending Clinician Unavailable BRANDT ALVARADO Attending Clinician Unavailable ANEL CARR Attending Clinician Unavailable NATIVIDAD EDWARDS Attending Clinician Unavailable BRANDT EGAN Attending Clinician Unavailable NEREIDA YOUNG Attending Clinician Unavailable Tigre SANDOVAL, Leonora Bateman Attending Clinician [phone] ABDOULAYE PIERCE Attending Clinician Unavailable Abdoulaye Pierce MD Attending Clinician RAS KINGSTON Attending Clinician Unavailable GERALDO BEGUM Attending Clinician Unavailable PABLO FERNANDEZ Attending Clinician Unavailable Pablo Fernandez MD Attending Clinician [phone] ABDOULAYE PIERCE Attending Clinician Unavailable Yann VOCATIONAL REHABILITATION TECHNICIAN, SINGLE SPINDLE SCREW MACHINE OPERATOR, Radha Wilson Attending Clinician Unavailable KAMERON MARIANO Attending Clinician Unavailable DAVID GILMAN Attending Clinician Unavailable MAKENZIE VARELA Attending Clinician Unavailable Makenzie Varela MD Attending Clinician KATHY COELLO Attending Clinician Unavailable NEREIDA PETTY Attending Clinician Unavailable ANTON JAFFE Attending Clinician Unavailable MARY CORTÉS Attending Clinician Unavailable BINDU CAMPBELL Attending Clinician UnavailENMANUEL Tobar Attending Clinician Unavailable SHERI MALDONADO Attending Clinician Unavailable BRANDT ALVARADO Attending Clinician Unavailable HECTOR STORM M.D. Attending Clinician Unavailable Kevin Campos DO Attending Clinician Bindu Campbell MD Attending Clinician [phone] Parish Fam MD Attending Clinician BRANDT SULLIVAN Attending Clinician Unavailable JORDI DUEÑAS Attending Clinician Unavailable ALANA HAM M.D. Attending Clinician Unavailable SUELLEN MENDENHALL Attending Clinician Unavailable Elva Son MD Attending Clinician Suellen Mendenhall MD Attending Clinician BRANDT BILL M.D. Attending Clinician Unavailable YANELI ALEXIS NP Attending Clinician Unavailable EMY VENCES Attending Clinician Unavailable Dede Li Attending Clinician DEDE SCHAFFER Attending Clinician Unavailable BRANDT BILL Attending Clinician Unavailable ELOISE DAMON Attending Clinician Unavailable Tracey Call Attending Clinician HOLGER PERAZA M.D. Attending Clinician Unavailable MEHREEN MARQUEZ Attending Clinician Unavailable Mehreen Marquez NP Attending Clinician DEMARCO GUARDADO Attending Clinician Unavailable ISAI VILLANUEVA APRN Attending Clinician Unavailable ALLYSON ARZOLA M.D. Attending Clinician Unavailable OTTONIEL CHAU M.D. Attending Clinician Unavailable BILLY PENA PA Attending Clinician Unavailable BILLY PENA M.D. Attending Clinician Unavailable ROXANN SOUZA M.D. Attending Clinician Unavailable KOBE MEDELLIN APRN Attending Clinician Unavailable TADEO ALCALA M.D. Attending Clinician Unavailable COREY HOBSON APRN Attending Clinician Unavailable LARRY CHAPA Attending Clinician Unavailable DICKSON CHAPA Attending Clinician Unavailable CASTILLO BUENROSTRO M.D. Attending Clinician Unavailable SYDNEY GONZALEZ Admitting Clinician Unavailable ANDREA OBANDO Admitting Clinician Unavailable DAVID GILMAN Admitting Clinician Unavailable JOSE ANTONIO MEREDITH Admitting Clinician UnavailLEELA Rosales Admitting Clinician Unavailable OJ LIN Admitting Clinician Unavailable ILIA PASCAL Admitting Clinician Unavailable YULI ROBLES Admitting Clinician Unavailable DONNY FENG Admitting Clinician Unavailable BRIDGET AVALOS Admitting Clinician Unavailable BRANDT BILL Admitting Clinician Unavailable MEHREEN MARQUEZ Admitting Clinician Unavailable Payers Payer Name Policy Type Policy Number Effective Date Expiration Date S ource MEDICAID [facility]CH STAR [id number] 2018 00:00:00 BCBS PPO POS EPO [id number] 2015 2017 CHOICE 00:00:00 00:00:00 [facility] [id number] 2018 HEALTH PLAN STAR 00:00:00 [place] [id number] 2018 CHILDREN'S HEALTH 00:00:00 PLAN PPO/EPO - BCBS [id number] WOMEN'S [id number] 2016 2016 HEALTH PROGRAM - 00:00:00 00:00:00 MEDICAID [facility] [id number] HE[place] CHOICE [place] [facility] STAR [id number] 2022 00:00:00 GENERIC PPO - [id number] [id number] 2019 CHOICE MEDICAID 00:00:00 Problems Condition Condition Condition Status Onset Resolution Last Treating Co mments Source Name Details Category Date Date Treatment Clinician Date Obesity Obesity Disease Active 2021-[address] [facility] Right arm Right arm Disease [facility] weakness weakness [facility] Weakness Weakness Disease [facility] extremity extremity 00 Cent er POTS POTS Disease Active Mikal (postural (postural 8-16 [facility] orthostati orthostati 00:00: of c c 00 Medicin tachycardi tachycardi e a a syndrome) syndrome) Persistent Persistent Disease Active [facility] genital genital 7-19 College arousal arousal 00:00: of disorder disorder 00 Medici n e Essential Essential Disease Active [place] [facility] hypertensi hypertensi 6-05 Co llege on on 00:00: of 00 Medicin e Dysautonom Dysautonom Disease Active [facility] ia ia 6-05 College 00:00: of 00 Medicin e History of History of Disease Active [facility] DVT (deep DVT (deep 6-05 [facility] vein vein 00:00: of thrombosis thrombosis 00 Me dicin ) ) e Bipolar 2 Bipolar 2 Disease Active [place] [facility] disorder disorder 5-18 Colleg e 00:00: of 00 Medicin e Attention Attention Disease Active [place] [facility] deficit deficit -18 College hyperactiv hyperactiv 00:00: of ity ity 00 Medicin disorder disorder e (ADHD), (ADHD), predominan predominan tly tly inattentiv inattentiv e type e type RILEY RILEY Disease Active [facility] (obstructi (obstructi 5-16 Assessmen College ve sleep ve sleep 00:00: t & Plan: of apnea) apnea) 00 Formattin Medicin g of this e note might be different from the original. Here for CPAP follow upReceive d her machine a few weeks agoPatien t cannot tolerate CPAP, at the same time started with nasal congestio n, sneezing, wet coughing and excessive mucus. She is on zyrtec, nasal spray and advair. Has a hx of septoplas ty and turbinate reduction in 2011.She is not able to breath due to her allergies , she is sneezing frequentl y.Uses FFM, sometimes notices air leaks.DME company: EduoraHas an appointme nt with Dr. Muñoz for endoscopy 2, patient still intereste d in bariatric surgery. She already lost 25 pounds since her sleep study.I recommend ed a referral to ENT for nasal congestio n evaluatio n. And also we need a download of her machine to review her CPAP settings, we may need to decrease her pressures .Recommen dations:- c/w PAP therapy-r eferral to ENT for nasal congestio n evaluatio n.-equipm ent download, I will send her a message after I reviewed her complianc e and CPAP settings. -regular exercise- weight loss-will follow up within one month for complianc e. Chronic Chronic Disease Active [facility] insomnia insomnia 5-16 Ass[facility] Col lege 00:00: t & Plan: of 00 Formattin Medicin g of this e note might be different from the original. Pending evaluatio n by Dr. Stuart i for CBT-I Morbid Morbid Disease Active [facility] obesity obesity 5-16 Assessmen Colle ge with BMI with BMI 00:00: t & Plan: of of of 00 Formattin Medicin 40.0-44.9, 40.0-44.9, g of this e adult adult note might be different from the original. Referral to Bariatric surgery Arthropath Arthropath Disease Active 2020-06 [facility] in y in 1-10 College ulcerative ulcerative 00:00: of colitis colitis 00 Medicin e Inflammato Inflammato Disease Active 2020-06 [facility] ry ry 1-10 [facility] arthritis arthritis 00:00: of Medicin e Ulcerative Ulcerative Disease Active 2020-06 [facility] colitis colitis -10 College 00:00: of Medicin e Iron Iron Disease Active [facility] deficiency deficiency 1-13 Co llege 00:00: Medicin e 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 9[facility]10 [facility] Acute Acute Disease Active [facility] pulmonary pulmonary 8-11 De[facility]o ege embolism embolism 00:00: Medicin e Morbid Morbid Disease Active [facility] obesity obesity 3-14 ity of 00:00: [place] [id number] [facility] Branch Rheumatoid Rheumatoid Disease Active 2018- U nivers arthritis arthritis 3-11 ity of 00:00: [place] [id number] [facility] Branch Insomnia Insomnia Disease Active Unive rs 3-11 ity of 00:00: [place] [id number] Medical Branch Enteropath Enteropath Disease Active 2016-06 [facility] ethodi ic ic 0-30 [facility] arthritis arthritis 00:00: Hosp oli 00 l Neuropathy Neuropathy Disease Active 2016-06 [facility] 00:00: Hospita 00 l RILEY RILEY Disease Active 2016-06 [facility] (obstructi (obstructi 0-09 st ve sleep ve sleep 00:00: Hospit a apnea) apnea) 00 l Asthma Asthma Disease Active 2016-06 [facility] dependent dependent 0-09 st on inhaled on inhaled 00:00: Ho spita steroids steroids 00 l Chronic Chronic Disease Active [facility] obstructiv obstructiv 4-10 st e asthma e asthma 00:00: Hospit a with acute with acute 00 l exacerbati exacerbati on on Cough Cough Disease Active [facility] 4-[facility] 00:[facility]: Hospita 00 l Allergic Allergic Disease Active [facility] di rhinitis rhinitis 4-10 st due to due to 00:00: Hospita pollen pollen 00 l Inflammato Inflammato Disease Active M ethodi ry ry 08-[address] polyarthri polyarthri 00:00: Ho spita tis tis 00 l Fibromyalg Fibromyalg Disease Active M ethodi ia ia 08-30 st 00:00: Hospita 00 l Encounter Encounter Disease Active 2015-06 [facility] hodi for for 2-15 st monitoring monitoring 00:00: Ho spita azathiopri azathiopri 00 l ne therapy ne therapy Vitamin D Vitamin D Disease Active 2015-06 [facility]odi insufficie insufficie 07-01 st ncy ncy 00:00: Hospita 00 l Myalgia Myalgia Disease Active 2015-06 [facility] 07[facility] 00:[facility] Hospita 00 l Chronic Chronic Disease Active 2015-06 [facility] midline midline 07-01 st low back low back 00:00: Hospit a pain pain 00 l without without sciatica sciatica Ulcerative Ulcerative Disease Recurre 2015-06 [facility] colitis colitis nce 06-28 st with with 00:00: Hospita complicati complicati 00 l on on History of History of Disease Active 2015-06 M ethodi endometrio endometrio 06-28 st sis sis 00:00: Hospita 00 l IBS IBS Disease Active 2015-06 [facility] (irritable (irritable 06-28 bowel bowel 00:00: Hospita syndrome) syndrome) 00 l Abdominal Abdominal Disease Active 2015-06 Met hodi pain pain 06-28 st 00:00: Hospita 00 l Weakness Weakness Disease Active 2015-06 Metho di 06-28 st 00:00: Hospita 00 l Anxiety Anxiety Disease Active 2015-06 [facility] 00:00: Hospita 00 l Gastropare Gastropare Disease Recurre 2015-06 [facility] sis sis nce 025 st 00:00: Hospita 00 l Tendonitis Tendonitis Disease Recurre 2015-06 [facility] of elbow, of elbow, nce 0-06 st right right 00:00: Hospita 00 l Cervical Cervical Disease Recurre 2015-06 Meth daniela radiculopa radiculopa nce 0-06 st thy thy 00:00: Hospita 00 l Gastroesop Gastroesop Disease Recurre [facility]i hageal hageal nce 8-31 st reflux reflux 00:00: Hospita disease disease 00 l without without esophagiti esophagiti s s Intractabl Intractabl Disease Active M ethodi e vomiting e vomiting 01-21 with with 00:00: Hospita nausea nausea 00 l Sprain of Sprain of Disease Recurre Me thodi right right nce 01-02 st knee/leg knee/leg 00:00: Hospit a 00 l Encounter Encounter Disease Active Overview: Univers for for 12-15 Formattin ity of routine routine 00:00: g of this [place] gynecologi gynecologi 00 note Me dical tyler tyler might be Branch examinatio examinatio different n n from the original. ICD10 Diagnosis Term Neon Sign Maker Utility Attention Attention Disease Active Overview: Univers deficit deficit 12-15 Formattin ity o f disorder disorder 00:00: g of this Tim as 00 note Medical might be Branch different from the original. ICD10 Diagnosis Term Neon Sign Maker Utility Anxiety Anxiety Disease Active Univers 24 ity of 00:00: [place] 00 Medical Branch Depression Depression Disease Active U nivers 24 ity of 00:00: [place] 00 Medical Branch Asthma Asthma Disease Active Overview: Univer s 12-15 Formattin ity of 00:00: g of this [place] 00 note Medical might be Branch different from the original. ICD10 Diagnosis Term Neon Sign Maker Utility Genital Genital Disease Active Univers warts warts 12-15 ity of 00:00: [place] 00 Medical Branch Endometrio Endometrio Disease Active U nivers sis sis 24 ity of 00:00: [place] 00 Medical Branch PCOS PCOS Disease Active Univers (polycysti (polycysti 12-15 it y of c ovarian c ovarian 00:[place] syndrome) syndrome) 00 [facility] Branch Acne Acne Disease Active Univers 24 ity of 00:00: [place] 00 Medical Branch Obesity Obesity Disease Active Overview: Univ ers 12-15 Formattin ity of 00:00: g of this [place] 00 note Medical might be Branch different from the original. ICD10 Diagnosis Term Neon Sign Maker Utility Sprain of Sprain of Disease Active Uni vers metacarpop metacarpop 6 it y of halangeal halangeal 00:[place] joint of joint of 00 Medica l thumb thumb Branch Blephariti Blephariti Disease Active 2011-06 U nivers s of both s of both 0-12 ity of eyes eyes 00:00: [place] 00 Medical Branch High High Disease Active [facility] myopia, myopia, 02-28 ity of both eyes [place] 00:[place] [facility] [place] Keratitis Keratitis Disease Active Uni vers secondary secondary 02-28 ity of to contact to contact [place] lens lens [place] Routine Routine Disease Active 2010-06 Overview: Univ ers medical medical 08-14 Formattin ity o f exam exam 00:00: g of this note Medical might be Branch different from the original. Last Assessmen t & Plan: Stable exam except as above. Abnormal Abnormal Disease Active 2010-06 Overview: Un marko weight weight 07-14 Formattin ity of gain gain 00:00: g of this note Medical might be Branch different from the original. Last Assessmen t & Plan: Labs reviewed and appears normal. Reviewed with her. I have counseled the patient at length to modify lifestyle . Hirsutism Hirsutism Disease Active 2010-06 Uni vers 07-14 ity of 00:00: [place] [facility] Irregular Irregular Disease Active 2010-06 Uni vers menstrual menstrual 07-14 ity of cycle cycle 00:00: Medical Branch Other Other Disease Active 2010-06 Univers malaise malaise 07-14 ity of and and 00:00: [place] fatigue fatigue 00 Medical Branch Frequent Frequent Disease Active 2009-06 Unive rs UTI UTI 08-02 ity of 00:00: [place] [facility] Headache(7 Headache(7 Disease Active 2009-06 Overview : Univers 84.0) 84.0) 08-02 Formattin ity of 00:00: g of this note Medical might be Branch different from the original. Last Assessmen t & Plan: Stable, suspect migraine type Headache(7 Headache(7 Disease Active 2009-06 Last [facility] 84.0) 84.0) 08-02 Assessmen College 00:00: t & Plan: of 00 Formattin Medicin g of this e note might be different from the original. Stable, suspect migraine type Depression Depression Disease Active 2009-06 Last [facility] 08-02 Assessmen College 00:00: t & Plan: of Formattin Medicin g of this e note might be different from the original. Stable but contribut ing to fatigue Anxiety Anxiety Disease Active 2009-06 [facility] 2- College 00:00: of 00 Medicin e History of History of Problem Resolve [facility] asthma asthma d Physici ans History of History of Problem Resolve [facility] depression depression d Ph ysici ans History of History of Problem Resolve [facility] pancreatit pancreatit d Ph ysici is is ans History of History of Problem Resolve [facility] Cervical Cervical d Physic i radicular radicular ans pain pain History of History of Problem Resolve [facility] Gastropare Gastropare d Ph ysici sis sis ans History of History of Problem Resolve [facility] Medial Medial d Physici meniscus meniscus ans tear tear Other Other Problem Active [facility] synovitis synovitis Phys ici and and ans tenosynovi tenosynovi tis, left tis, left ankle and ankle and foot foot History of History of Problem Resolve [facility] peptic peptic d Physici ulcer ulcer ans Injury, Injury, Problem Active [facility] foot, foot, Physici left, left, ans initial initial encounter encounter Endometrio Endometrio Problem Active U T sis sis Physici ans Vaginal Vaginal Problem Active [facility] candidiasi candidiasi Ph ysici s s ans Abnormal Abnormal Problem Active [facility] urinalysis urinalysis Ph ysici ans Encounter Encounter Problem Active [facility] for for Physici monitoring monitoring an s golimumab golimumab therapy therapy Encounter Encounter Problem Active [facility] for long for long Physic i term term ans current current azathiopri azathiopri ne therapy ne therapy Chronic Chronic Problem Active [facility] left left Physici sacroiliac sacroiliac an s pain pain Chronic Chronic Problem Active [facility] left left Physici shoulder shoulder ans pain pain On On Problem Active UT corticoste corticoste Ph ysici roid roid ans therapy therapy Asthma Asthma Problem Active [facility] Physici ans Chronic Chronic Problem Active [facility] neck pain neck pain Phys ici ans Depression Depression Problem Active U T Physici ans Dyspnea Dyspnea Problem Active [facility] Physici ans History of History of Problem Active U T rheumatoid rheumatoid Ph ysici arthritis arthritis ans Morbid Morbid Problem Active [facility] obesity obesity Physici ans PCOS PCOS Problem Active UT (polycysti (polycysti Ph ysici c ovarian c ovarian ans syndrome) syndrome) Rheumatoid Rheumatoid Problem Active U T arthritis arthritis Phys ici ans RILEY RILEY Problem Active UT (obstructi (obstructi Ph ysici ve sleep ve sleep ans apnea) apnea) Palpitatio Palpitatio Problem Active U T ns ns Physici ans Chest pain Chest pain Problem Active U T at rest at rest Physici ans Chest Chest Problem Active [facility] pain, pain, Physici atypical atypical ans Recurrent Recurrent Problem Active UT UTI UTI Physici (urinary (urinary ans tract tract infection) infection) Anxiety Anxiety Problem Active [facility] Physici ans Hypertrigl Hypertrigl Problem Active U T yceridemia yceridemia Ph ysici ans Spleen Spleen Problem Active [facility] enlargemen enlargemen Ph ysici t t ans Myofascial Myofascial Problem Active U T pain pain Physici syndrome syndrome ans Pain of Pain of Problem Active [facility] right right Physici clavicle clavicle ans Osteoarthr Osteoarthr Problem Active U T itis itis Physici ans Arthralgia Arthralgia Problem Active U T of right of right Physic i knee knee ans Sprain of Sprain of Problem Active UT calcaneofi calcaneofi Ph ysici bular bular ans ligament ligament of left of left ankle, ankle, sequela sequela Urethritis Urethritis Problem Active U T , , Physici nonspecifi nonspecifi an s c c Drug Drug Problem Active [facility] testing, testing, Physic i pre-employ pre-employ an s ment ment Tendinitis Tendinitis Problem Active U T of left of left Physici pectoralis pectoralis an s major major Tendinitis Tendinitis Problem Active U T of right of right Physic i infraspina infraspina an s tus tendon tus tendon Hypermobil Hypermobil Problem Active U T ity ity Physici arthralgia arthralgia an s Costochond Costochond Problem Active U T ritis ritis Physici ans Fibromyalg Fibromyalg Problem Active U T ia ia Physici ans Chronic Chronic Problem Active [facility] right right Physici shoulder shoulder ans pain pain Sprain of Sprain of Problem Active UT calcaneofi calcaneofi Ph ysici bular bular ans ligament ligament of left of left ankle, ankle, subsequent subsequent encounter encounter Abdominal Abdominal Problem Active [facility] pain pain Physici ans Diarrhea Diarrhea Problem Active [facility] Physici ans Chronic Chronic Problem Active [facility] GERD GERD Physici ans Colitis Colitis Problem Active [facility] Physici ans Ulcerative Ulcerative Problem Active U T colitis colitis Physici ans Humerus Humerus Problem Active [facility] lesion, lesion, Physici right right ans Tear of Tear of Problem Active [facility] right right Physici infraspina infraspina an s tus tus tendon, tendon, initial initial encounter encounter Right Right Problem Active UT supraspina supraspina Ph ysici tus tus ans tendinitis tendinitis Facial Facial Problem Active [facility] rash rash Physici ans Ankle Ankle Problem Active [facility] pain, left pain, left Ph ysici ans Back Back Problem Active [facility] muscle muscle Physici spasm spasm ans Lumbar Lumbar Problem Active [facility] facet facet Physici arthropath arthropath an s y y Lumbar Lumbar Problem Active [facility] pain pain Physici ans PTSD PTSD Problem Active [facility] (post-trau (post-trau Ph ysici matic matic ans stress stress disorder) disorder) Other Other Problem Active [facility] synovitis synovitis Phys ici and and ans tenosynovi tenosynovi tis, right tis, right ankle and ankle and foot foot Left leg Left leg Problem Active [facility] swelling swelling Physic i ans Contusion Contusion Problem Active [facility] of right of right Physic i ankle, ankle, ans initial initial encounter encounter Sprain of Sprain of Problem Active [facility] deltoid deltoid Physici ligament ligament ans of left of left ankle, ankle, initial initial encounter encounter Sprain of Sprain of Problem Active [facility] tarsal tarsal Physici ligament ligament ans of left of left foot, foot, initial initial encounter encounter Bipolar 2 Bipolar 2 Problem Active [facility] disorder disorder Physic i ans Deep Deep Problem Active [facility] peroneal peroneal Physic i neuropathy neuropathy an s , left , left Headache Headache Problem Active [facility] Physici ans ADD ADD Problem Active [facility] (attention (attention Ph ysici deficit deficit ans disorder) disorder) Sciatic Sciatic Disease Active Univers nerve pain nerve pain it y of [facility] Allergies, Adverse Reactions, Alerts Allergy Allergy Status Severity Reaction(s) Onset Inactive Treating Comm ents Source Name Type Date Date Clinician CLINDAMY DRUG Active Rash 2021-06 [facility] MARI INGREDI 0-11 ity of 00:00: [place] 00 [facility] Branch Clindamy Propensi Active Rash 2021-06 Univer s mari ty to 0-11 ity of adverse 00:00: [place] reaction 00 Medical s Branch MORPHINE Allergy Active Low Anxiety [facility] Center Morphine Drug Active Anxiety Sensitivi [facility] 9[facility]14 [facility] only [facility] 00:[facility]: lasts a Medical 00 few min, Center tolerates well otherwise DULOXETI Allergy Active High Swelling [facility] Medical 00 Center CLINDAMY Allergy Active Med Other 2022-[address] [facility] [address] MARI 6-22 [facility] 00:[facility]: Medical 00 Center CEPHALEX Allergy Active Low Itching 2021-[address] IN 12-13 [facility] 00:[facility]: Medical 00 Center NITROFUR Allergy Active Low Rash 2021-[address] [facility] ANTOIN - [facility] MONOHYD/ 00:00: Medical M-CRYST 00 Center Clindamy Drug Active Other (See 2021-[address] mari Allergy Comments) 12-13 [facility] 00:[facility]: Medical 00 Center Duloxeti Drug Active Swelling 2021-[address] ne Allergy 12-13 of tongue [facility] 00:[facility]: Medical 00 Center Cephalex Drug Active Itching, 2021-[address] in Allergy Rash 12-13 azithromy [facility] 00:[facility]: mari, Medical 00 phospomyc Center in, rocephin Nitrofur Drug Active Rash 2021-[address] antoin Allergy 12-13 [facility] Monohyd/ 00:00: Medical M-Cryst 00 Center Nitrofur Propensi Active Rash 2021-0 Mikal antoin ty to 5-16 [place] Macrocry adverse 00:00: of stal reaction 00 Medicin s to e drug NITROFUR DRUG Active Med Rash 2021-0 Univers ANTOIN INGREDI 5-16 ity of 00:00: [address] Branch Nitrofur Propensi Active Rash 2021-0 Univer s antoin ty to 5-16 ity of adverse 00:00: [place] reaction 00 Medical s Branch Sulfasal Propensi Active Swelling 2020-0 tounge [facility] or azine ty to 1-27 swelling College adverse 00:00: of reaction 00 Medicin s to e drug Ed Propensi Active 2019- [facility] A-Hist ty to 2-28 College Pse adverse 00:00: of reaction 00 Medicin s to e drug Doxycycl Propensi Active Diarrhea 2019- [facility] or ine ty to 2-28 College adverse 00:00: of reaction 00 Medicin s to e drug DOXYCYCL Allergy Active Med Diarrhea 2019- [facility] Medical [facility] Center Doxycycl Drug Active Diarrhea 2019- [facility] ine Allergy 2-28 [facility] 00:[facility]: Medical 00 Center DOXYCYCL DRUG Active Diarrhea 2019- Univer s INE INGREDI 2-28 ity of 00:00: [place] 00 Medical Branch Doxycycl Propensi Active Diarrhea 2019-1 Univ ers ine ty to 2-28 ity of adverse 00:00: [place] reaction 00 Medical s Branch Cephalos Propensi Active 2019-06 [facility] porins ty to 07-12 [place] adverse 00:00: of reaction 00 Medicin s to e drug Ciproflo Propensi Active 2019-06 [facility] xacin ty to 07-12 [place] adverse 00:00: of reaction 00 Medicin s to e drug Sulfa Propensi Active 2019-06 [facility] Antibiot ty to 07-12 [place] ics adverse 00:00: of reaction 00 Medicin s to e drug Amoxicil Propensi Active Diarrhea 2020-0 And [facility] or alexy ty to 03-02 Augmentin College adverse 00:00: . Patient of reaction 00 TOLERATES Medic in s to Penicilli e drug n without adverse rxn SULFA Allergy Active Swelling 2020-0 [facility] (SULFONA 03-02 MIDE 00:00: ANTIBIOT 00 ICS) AMOXICIL Allergy Active Diarrhea 2020-0 [facility] ALEXY 03-02 00:00: 00 AMOXICIL Allergy Active Diarrhea 2020-0 [facility] ALEXY-POT 03-02 CLAVULAN 00:00: ATE 00 CELECOXI Allergy Active Swelling 2020-0 [facility] B 03-02 00:00: 00 CEPHALOS Allergy Active Hives 2020-0 [facility] PORINS 03-02 00:00: 00 CIPROFLO Allergy Active Other 2020-0 [facility] XACIN 03-02 (BULK) 00:00: 00 LEVOFLOX Allergy Active Other 2020-0 [facility] ACIN 03-02 00:00: 00 Amoxicil Drug Active Diarrhea 2020-[address] [facility] alexy-Pot Allergy 03-02 [facility] Clavulan 00:[facility]: Medical ate 00 Center Celecoxi Drug Active Swelling 2020-[address] [facility] [address] b Allergy 03-02 swelling [facility] 00:[facility]: Medical 00 Center Ciproflo Drug Active Other (See 2020-[address] xacin Allergy Comments) 03-02 ia [facility] (Bulk) 00:00: Medical 00 Center Levoflox Drug Active Other (See 2020-[address] acin Allergy Comments) 03-02 ia [facility] 00:[facility]: Medical 00 Center Sulfa Drug Active Swelling 2020-[address] (Sulfona Allergy 03-02 swelling [facility] mide 00:00: Medical Antibiot 00 Center ics) AMOXICIL DRUG Active Diarrhea 2019-0 Univer s ALEXY INGREDI 03-02 ity of 00:00: [place] 00 Medical Branch Amoxicil Propensi Active Diarrhea And Univ ers alexy ty to 03-02 Augmentin ity of adverse 00:00: . Patient [place] reaction 00 TOLERATES Medic al s Penicilli Branch n without adverse rxnAnd Augmentin . Patient TOLERATES Penicilli n without adverse rxn Celecoxi Propensi Active Swelling 2019- tongue [facility] b ty to 08-20 College adverse 00:00: of reaction 00 Medicin s to e drug CELECOXI DRUG Active Swelling 2019- Univer s B INGREDI 08-20 ity of 00:00: [place] 00 Medical Branch Celecoxi Propensi Active Swelling 2019- Univ ers b ty to 08-20 ity of adverse 00:00: [place] reaction 00 Medical s Branch CIPROFLO DRUG Active Other-Cmnt Univ ers XACIN INGREDI 1-10 ity of 00:00: [place] 00 Medical Branch SULFA Drug Active Other-Cmnt Univer s (SULFONA Class 1-10 ity of MIDE 00:00: [place] ANTIBIOT 00 Medical ICS) Branch Sulfa Propensi Active Other - See Tongue Uni vers (Sulfona ty to comments 1-10 swelling ity of mide adverse 00:00: [place] Antibiot reaction 00 Medica l ics) s Branch Ciproflo Propensi Active Other - See 2019-0 Tachycar d Univers xacin ty to comments 1-10 ia ity of adverse 00:00: [place] reaction 00 Medical s Branch Sulfa Propensi Active Other - See Tongue Uni vers (Sulfona ty to comments 1-10 swelling ity of mide adverse 00:00: [place] Antibiot reaction 00 Medica l ics) s Branch Tolmetin Propensi Active Swelling 2015-06 Face and Me thodi ty to 06-[address] adverse 00:00: Hospita reaction 00 l s to drug Adhesive Propensi Active Itching 2015-06 Skin Metho di ty to 06-[address] adverse 00:00: Hospita reaction 00 l s to drug Cephalex Propensi Active Itching 2015-06 Metho di in ty to 06-30 st adverse 00:00: Hospita reaction 00 l s to drug Adhesive Propensi Active Itching Skin Metho di [facility] ty to [address] icones adverse 00:00: Hospita reaction 00 l s to drug Ciproflo Propensi Active Tachycard Met hodi xacin ty to 01-[address] adverse 00:00: Hospita reaction 00 l s to drug Levoflox Propensi Active Palpitations Tachyca rd Methodi acin ty to 01-[address] adverse 00:00: Hospita reaction 00 l s to drug Tapentad Propensi Active Itching 2014- Skin [facility] ty to 7 turns red College adverse 00:00: of reaction 00 Medicin s to e drug Tapentad Propensi Active Itching 2014- Skin Metho di ol ty to 01-[address] adverse 00:00: Hospita reaction 00 l s to drug TAPENTAD DRUG Active ITCHING 2014-0 Univers OL INGREDI 7 ity of 00:00: [place] 00 Medical Branch Tapentad Propensi Active Itching 2014-0 Skin Unive rs ol ty to 7 turns ity of adverse 00:00: redSkin [place] reaction 00 turns red Medic al s Branch ADHESIVE Drug Active ITCHING 2012-0 Univers Class 6-24 ity of 00:00: [place] 00 Medical Branch CEPHALEX DRUG Active ITCHING 2012-0 Univers IN INGREDI 6-24 ity of 00:00: [place] 00 Medical Branch LEVOFLOX DRUG Active Palpitations 2012-0 Un marko ACIN INGREDI 6-24 ity of 00:00: [place] 00 Medical Branch Adhesive Propensi Active Itching 2012-0 Skin Unive rs ty to 6-24 turns red ity of adverse 00:00: [place] reaction 00 Medical s Branch Adhesive Propensi Active Itching 2012-0 Skin Unive rs ty to 624 turns red ity of adverse 00:00: [place] reaction 00 Medical s Branch Cephalex Drug Active Itching 2012-0 Univers in Intolera 6-24 ity of nce 00:00: [place] 00 Medical Branch Levoflox Propensi Active Palpitations 2012-0 Univers acin ty to 6-24 ity of adverse 00:00: [place] reaction 00 Medical s Branch Levoflox Propensi Active Swelling 0 Throat [facility] or acin ty to 4-20 and rapid College adverse 00:00: heart of reaction 00 rateTachy Medic in s to cardiaTac e drug hycardiat achycardi a Levaquin Propensi Active Palpitations 2010-06 Mikal ty to 2-19 College adverse 00:00: of reaction 00 Medicin s to e drug Duloxeti Propensi Active 2010-06 Serotonin [place] [facility] [facility] ne Hcl ty to 07-14 syndrome College adverse 00:00: of reaction 00 Medicin s to e drug Duloxeti Propensi Active 2010-06 Serotonin Met hodi ne Hcl ty to 07-[address] adverse 00:00: Hospita reaction 00 l s to drug DULOXETI DRUG Active High Swelling 2010-06 Univer s NE INGREDI 07-14 ity of 00:00: [place] 00 Medical Branch Duloxeti Propensi Active Swelling 2010-06 Serotonin U nivers ne ty to 07-14 syndromeS ity of adverse 00:00: erotonin [place] reaction 00 syndromeS Medic al s welling Branch of tongue Adhesive Propensi Active Blister 2009-06 [facility] Tape ty to 07-23 College adverse 00:00: of reaction 00 Medicin s to e substanc e Metformi Propensi Active 2009-06 Lactic Mikal n Hcl ty to 07-23 acidosis College adverse 00:00: of reaction 00 Medicin s to e drug Nsaids Propensi Active Swelling 2009-06 Face and [facility] or ty to 07-23 tongueCel College adverse 00:00: ebrex of reaction 00 Medicin s to e drug Keflex Propensi Active Itching 2009-06 [facility] ty to 07-23 College adverse 00:00: of reaction 00 Medicin s to e drug NSAIDS Allergy Active Swelling 2009-06 [facility] (NON-REMIGIO 07-23 ROIDAL 00:00: ANTI-INF 00 LAMMATOR Y DRUG) ADHESIVE Allergy Active Hives 2009-06 [facility] TAPE 07-23 00:00: 00 Adhesive Drug Active Hives 2009-[address] [facility] Tape Allergy 07-23 [facility] 00:[facility]: Medical 00 Center NO KNOWN Allergy Active [facility] Ciproflo Allergy Active [place] xacin to drug [facility] HCl TABS (finding ans ) Sulfa Allergy Active Anaphylaxis [facility] Drugs to drug [facility] (finding ans ) Family History Family Member Diagnosis Comments Start Date Stop Date Source natural son [facility] Anxiety natural son [facility] depression Mother [facility] hypothyroidism Mother [facility] pulmonary embolism Mother [facility] gout Mother [facility] osteoarthritis Mother [facility] osteoporosis Father [facility] hypertension Father [facility] alcoholism Grandmother [facility] osteoarthritis Grandmother [facility] history of [facility] osteoporosis Natural brother [facility] Natural [facility] Natural brother Irritable bowel [facility] Natural brother Learning disabilities [facility] Natural brother Mental illness [facility] Natural father Alcohol abuse [facility] Natural [facility] Hy[facility] Natural father [facility]ension [facility] Maternal Diabetes [facility] Maternal Heart disease [facility] Maternal Hypertension [facility] Maternal Parks's esophagus Metho dist [facility]aternal Cancer [facility] [place] Maternal GERD [facility] [place] Maternal Liver cancer [facility] [place] Maternal Ulcerative colitis [facility] Natural mother Arthritis [facility] Natural mother Vision loss [facility] Natural mother Arthritis [facility] Natural [facility]othy[facility] Natural sister Alcohol abuse [facility] Natural sister Depression [facility] Natural sister Irritable bowel [facility] Natural sister Learning disabilities [facility] Natural sister Mental illness [facility] Social History Social Habit Start Date Stop Date Quantity Comments Source History of tobacco Passive smoker [facility] of use Medicine History SDOR [facility] Alcohol Frequency Medical Center History SDOH [facility] Alcohol Std Drinks Medica l Center History [facility] Alcohol Binge Medical Maggy ter Alcohol intake 2022-06-21 2022-06-21 [facility]er [facility] of alcohol Medical Center (finding) Exposure to 2022-06-10 2022-06-[address] [facility] SARS-CoV-2 (event) 00:00:00 06:50:00 Medica l Center History [facility] 2021-11-19 2021-11-19 0 [facility] of Physical Activity 00:00:00 00:00:00 Medicin e DPW History [facility] 2021-11-19 2021-11-19 0 [facility] ge of Physical Activity 00:00:00 00:00:00 Medicin e MPS Tobacco Comment 2021-11-14 2021-11-14 None [facility] llege of 00:00:00 00:00:00 Medicine Cigarette 2021-11-14 2021-11-14 [facility] College of pack-years 00:00:00 00:00:00 Medicine Tobacco use and 2020-03-02 2020-03-[address] [facility] kes exposure 00:00:00 00:00:00 Medical Center History SDOH 2020-03-02 2020-03-[address] [facility] Alcohol Comment 00:00:00 00:00:00 Medical C enter Sex [birth year] At [birth year] [facility] 00:[facility]00 Hospital Smoking Status Start Date Stop Date Source Ex-smoker 2021-11-14 00:00:00 2021-11-14 00:00:00 [facility] ol[facility] of Medicine Never smoker [facility] Medications Ordered Filled Start Stop Current Ordering Indication Dosage Frequency Signature Comments Components Source Medication Medication Date Date Medication? Clinician (SIG) Name Name albuterol 2021-06 Yes 1{puff} Inhale [address] HFA 2-29 puff by [facility] (VENTOLIN 15:02: mouth via Med ical HFA) 90 20 inhaler Center mcg/actuati every 6 on inhaler (six) hours as needed for Wheezing. traZODone 2021-06 Yes 100mg QD Take [address] (DESYREL) 2-29 mg by [facility] 100 MG 15:02: mouth Medical tablet 20 nightly . Center mesalamine 2021-06 Yes 2400mg Q.5D Take 2,[address] (LIALDA) 2-29 mg by [facility]ukes 1.2 gram EC 15:02: mouth 2 Med ical tablet 20 (two) Center times daily Ulcerative colitis. gabapentin 2021-06 Yes 800mg Q.[id number] Take [address] (NEURONTIN) 2-29 [id number] mg by L ukes 800 MG 15:02: 3D mouth 3 Medical tablet 20 (three) Center times daily. meclizine 2021-06 Yes 25mg Take [address] (ANTIVERT) 2-29 by mouth 3 Ady es 25 MG 15:02: (three) Medical tablet 20 times Center daily as needed. cetirizine 2021-06 Yes 10mg QD Take [address] (ZyrTEC) 10 2-29 by mouth Luke s MG tablet 15:02: daily. Medica l 20 Center fluticasone 2021-06 Yes 1{puff} Q.5D Inhale [address] propion-louis 2-29 puff by [facility]ukes meteroL 15:02: mouth via Medic al (ADVAIR) 20 inhaler 2 Center 500-50 (two) mcg/dose times diskus daily. inhaler lamoTRIgine 2021-06 Yes 300mg QD Take [address] (LaMICtal 2-29 mg by [facility] XR) 300 mg 15:02: mouth Medica l TR24 20 nightly . Bokeelia hydrOXYzine 2021-06 Yes 25mg Take [address] (ATARAX) 25 2-29 by mouth 3 Jaskaran kes MG tablet 15:02: (three) Medic al 20 times Center daily as needed for Itching. cholecalcif 2021-06 Yes 400U QD Take [address] zheng 2-29 Units by [facility]ukes (VITAMIN 15:02: mouth Medical D3) 10 mcg 20 daily. Bokeelia (400 unit) Tab tablet fluconazole 2021-06 Yes 150mg Take [address] (DIFLUCAN) 2-29 mg by [facility]ukes 150 MG 15:02: mouth Medical tablet 20 once. Bokeelia dextroamphe 2021-06 Yes Take by [facility] tamine-amph 2-29 mouth. [facility]ukes etamine 15:02: Medical (AdderalL) 20 Center 15 mg Tab baclofen 2021-06 Yes 10mg Q.[id number] Take [address] (LIORESAL) 2-29 [id number] by mouth 3 [facility] 10 MG 15:02: 3D (three) Medical tablet 20 times Center daily arthralgia . ondansetron 2021-06 4mg Take [address] (ZOFRAN-ODT 2-27 12-30 tablet (4 Jaskaran kes ) 4 MG 00:00: 23:59 mg total) Medic al disintegrat 00 :00 by mouth Cent er ing tablet every 8 (eight) hours as needed for Nausea for up to 3 days. gabapentin 2021- Yes [id number] 100mg Take 1 Univers 100 mg 2-19 capsule by ity of capsule 00:00: mouth in [address] and 1 capsule at noon and 1 capsule in the evening. gabapentin 2021- Yes [id number] 100mg Take 1 Univers 100 mg 2-19 capsule by ity of capsule 00:00: mouth in [address] and 1 capsule at noon and 1 capsule in the evening. gabapentin 2021- Yes [id number] 100mg Take 1 Univers 100 mg 2-19 capsule by ity of capsule 00:00: mouth in [address] and 1 capsule at noon and 1 capsule in the evening. gabapentin 2021- Yes [id number] 100mg Take 1 Univers 100 mg 2-19 capsule by ity of capsule 00:00: mouth in [address] and 1 capsule at noon and 1 capsule in the evening. gabapentin 2021- Yes [id number] 100mg Take 1 Univers 100 mg 2-19 capsule by ity of capsule 00:00: mouth in [address] and 1 capsule at noon and 1 capsule in the evening. gabapentin 2021- Yes [id number] 100mg Take 1 Univers 100 mg 2-19 capsule by ity of capsule 00:00: mouth in [address] and 1 capsule at noon and 1 capsule in the evening. gabapentin 2021- Yes [id number] 100mg Take 1 Univers 100 mg 2-19 capsule by ity of capsule 00:00: mouth in [address] and 1 capsule at noon and 1 capsule in the evening. gabapentin 2021- Yes [id number] 100mg Take 1 Univers 100 mg 2-19 capsule by ity of capsule 00:00: mouth in [address] and 1 capsule at noon and 1 capsule in the evening. gabapentin 2021- Yes [id number] 100mg Take 1 Univers 100 mg 2-19 capsule by ity of capsule 00:00: mouth in [address] and 1 capsule at noon and 1 capsule in the evening. gabapentin 2021- Yes [id number] 100mg Take 1 Univers 100 mg 2-19 capsule by ity of capsule 00:00: mouth in [address] [place] and 1 capsule at noon and 1 capsule in the evening. gabapentin 2021-06 Yes [id number] 100mg Take 1 Univers 100 mg 2-19 capsule by ity of capsule 00:00: mouth in [address] and 1 capsule at noon and 1 capsule in the evening. gabapentin 2021-06 Yes [id number] 100mg Take 1 Univers 100 mg 2-19 capsule by ity of capsule 00:00: mouth in [address] and 1 capsule at noon and 1 capsule in the evening. fluticasone 2021-06 Yes 1{puff} Inhale 1 [facility] -salmeterol 1-07 Puff by [employer] (ADVAIR) 09:18: mouth of 500-50 41 every 12 Medicin MCG/DOSE hours. e inhaler Cholecalcif 2021-06 Yes 400U Take 400 [facility] zheng 1-07 Units by [place] (VITAMIN 09:18: mouth. of D-3) 10 MCG 41 Medicin (400 UNIT) e TABS Ascorbic 2021-06 Yes 3000mg Take 3,000 [facility] Acid 1000 1-07 mg by [place] MG TABS 09:18: mouth. of 41 Medicin e hydrocortis 2021-[address] 100 [facility] one 1-04 mg [place] (CORTENEMA) 00:00: rectally of 100 MG/60ML 00 at Medicin enema bedtime. e fluticasone 2021-06 Yes 1{puff} Inhale 1 [facility] -salmeterol 0-27 Puff by [employer] (ADVAIR) 11:47: mouth of 500-50 42 every 12 Medicin MCG/DOSE hours. e inhaler Cholecalcif 2021-06 Yes 400U Take 400 Ba ylor zheng 0-27 Units by [place] (VITAMIN 11:47: mouth. of D-3) 10 MCG 42 Medicin (400 UNIT) e TABS Ascorbic 2021-06 Yes 3000mg Take 3,000 [facility] Acid 1000 0-27 mg by [place] MG TABS 11:47: mouth. of 42 Medicin e amphetamine 2021-06 Yes [id number] 1{tbl} Take 1 [facility] -dextroamph 0-21 Tablet by Col lege etamine 00:00: mouth of (ADDERALL, 00 daily. In Medi mari 15MG,) 15 the e MG tablet morning amphetamine 2021-06 Yes [id number] 1{tbl} Take 1 [facility] -dextroamph 0-21 Tablet by Col lege etamine 00:00: mouth of (ADDERALL, 00 daily. In Medi mari 15MG,) 15 the e MG tablet morning cephALEXin 2021-06 Yes [facility] (KEFLEX) 0-18 [place] 500 MG 00:00: of capsule 00 Medicin e cephALEXin 2021-06 Yes [facility] (KEFLEX) 0-18 [place] 500 MG 00:00: of capsule 00 Medicin e fluticasone 2021-06 Yes 1{puff} Inhale 1 [facility] -salmeterol 0-17 Puff by [employer] (ADVAIR) 09:43: mouth of 500-50 15 every 12 Medicin MCG/DOSE hours. e inhaler Cholecalcif 2021-06 Yes 400U Take 400 Ba ylor zheng 0-17 Units by [place] (VITAMIN 09:43: mouth. of D-3) 10 MCG 15 Medicin (400 UNIT) e TABS fluticasone 2021-06 Yes 1{puff} Inhale 1 [facility] -salmeterol 0-17 Puff by [employer] (ADVAIR) 09:43: mouth of 500-50 15 every 12 Medicin MCG/DOSE hours. e inhaler Cholecalcif 2021-06 Yes 400U Take 400 Ba ylor zheng 0-17 Units by [place] (VITAMIN 09:43: mouth. of D-3) 10 MCG 15 Medicin (400 UNIT) e TABS Ascorbic 2021-06 Yes 3000mg Take 3,000 [facility] Acid 1000 0-17 mg by [place] MG TABS 09:43: mouth. of 15 Medicin e baclofen 2021-06 Yes [id number] TAKE ONE [facility] (LIORESAL) 0-14 TABLET BY Deangelo ege 10 MG 00:00: MOUTH of tablet 00 THREE Medicin TIMES A e DAY NEEDED FOR PAIN baclofen 2021-06 Yes [id number] TAKE ONE [facility] (LIORESAL) 0-14 TABLET BY Deangelo ege 10 MG 00:00: MOUTH of tablet 00 THREE Medicin TIMES A e DAY NEEDED FOR PAIN baclofen 2021-06 Yes [id number] TAKE ONE [facility] (LIORESAL) 0-14 TABLET BY Deangelo ege 10 MG 00:00: MOUTH of tablet 00 THREE Medicin TIMES A e DAY NEEDED FOR PAIN hydrocodone 2021-06 Yes [id number] 1{tbl} Take 1 [facility] -acetaminop 0-13 Tablet by Col lege hen (NORCO) 00:00: mouth of 5-325 mg 00 every 4 Medicin tablet hours as e needed for Pain. amphetamine 2021-06 Yes [id number] 1{tbl} Take 1 [facility] -dextroamph 0-13 Tablet by Col lege etamine 00:00: mouth of (ADDERALL, 00 daily. Medicin 5MG,) 5 MG Take in e tablet afternoon amphetamine 2021-06 Yes [id number] 1{tbl} Take 1 [facility] -dextroamph 0-13 Tablet by Col lege etamine 00:00: mouth of (ADDERALL, 00 daily. In Medi mari 15MG,) 15 the e MG tablet morning hydrocodone 2021-06 Yes [id number] 1{tbl} Take 1 [facility] -acetaminop 0-13 Tablet by Col lege hen (NORCO) 00:00: mouth of 5-325 mg 00 every 4 Medicin tablet hours as e needed for Pain. amphetamine 2021-06 Yes [id number] 1{tbl} Take 1 [facility] -dextroamph 0-13 Tablet by Col lege etamine 00:00: mouth of (ADDERALL, 00 daily. Medicin 5MG,) 5 MG Take in e tablet afternoon amphetamine 2021-06 Yes [id number] 1{tbl} Take 1 [facility]al -dextroamph 0-13 Tablet by Col lege etamine 00:00: mouth of (ADDERALL, 00 daily. In Medi mari 15MG,) 15 the e MG tablet morning fluconazole 2021-06 Yes 150mg Take 150 [facility] (DIFLUCAN) 0-13 mg by [place] 150 MG 00:00: mouth of tablet 00 daily. Medicin e hydrocodone 2021-06 Yes 1{tbl} Take 1 [facility] -acetaminop 0-13 Tablet by Col lege hen (NORCO) 00:00: mouth of 5-325 mg 00 every 4 Medicin tablet hours as e needed for Pain. amphetamine 2021-06 Yes [id number] 1{tbl} Take 1 [facility] -dextroamph 0-13 Tablet by Col lege etamine 00:00: mouth of (ADDERALL, 00 daily. Medicin 5MG,) 5 MG Take in e tablet afternoon fluconazole 2021-06 Yes 150mg Take 150 [facility] (DIFLUCAN) 0-13 mg by [place] 150 MG 00:00: mouth of tablet 00 daily. Medicin e hydrocodone 2021-06 Yes [id number] 1{tbl} Take 1 [facility] -acetaminop 0-13 Tablet by Col lege hen (NORCO) 00:00: mouth of 5-325 mg 00 every 4 Medicin tablet hours as e needed for Pain. amphetamine 2021-06 Yes [id number] 1{tbl} Take 1 [facility] -dextroamph 0-13 Tablet by Col lege etamine 00:00: mouth of (ADDERALL, 00 daily. Medicin 5MG,) 5 MG Take in e tablet afternoon fluconazole 2021-06 Yes 150mg Take 150 [facility] (DIFLUCAN) 0-13 mg by [place] 150 MG 00:00: mouth of tablet 00 daily. Medicin e midodrine 2021-06 Yes 2.5mg Take 2.5 Uni vers 2.5 mg 0-11 mg by ity of tablet 14:05: mouth. [address] 2021-06 Yes 2.5mg Take 2.5 Uni vers 2.5 mg 0-11 mg by ity of tablet 14:05: mouth. [address] midodrine 2021-06 Yes 2.5mg Take 2.5 Uni vers 2.5 mg 0-11 mg by ity of tablet 14:05: mouth. [address] midodrine 2021-06 Yes 2.5mg Take 2.5 Uni vers 2.5 mg 0-11 mg by ity of tablet 14:05: mouth. [address] midodrine 2021-06 Yes 2.5mg Take 2.5 Uni vers 2.5 mg 0-11 mg by ity of tablet 14:05: mouth. [address] midodrine 2021-06 Yes 2.5mg Take 2.5 Uni vers 2.5 mg 0-11 mg by ity of tablet 14:05: mouth. [address] midodrine 2021-06 Yes 2.5mg Take 2.5 Uni vers 2.5 mg 0-11 mg by ity of tablet 14:05: mouth. [address] 2021-06 Yes 2.5mg Take 2.5 Uni vers 2.5 mg 0-11 mg by ity of tablet 14:05: mouth. [address] 2021-06 Yes 2.5mg Take 2.5 Uni vers 2.5 mg 0-11 mg by ity of tablet 14:05: mouth. [address] 2021-06 Yes 2.5mg Take 2.5 Uni vers 2.5 mg 0-11 mg by ity of tablet 14:05: mouth. [address] 2021-06 Yes 2.5mg Take 2.5 Uni vers 2.5 mg 0-11 mg by ity of tablet 14:05: mouth. [address] 2021-06 Yes 2.5mg Take 2.5 Uni vers 2.5 mg 0-11 mg by ity of tablet 14:05: mouth. [address] 2021-06 Yes 2.5mg Take 2.5 Uni vers 2.5 mg 0-11 mg by ity of tablet 14:05: mouth. [address] 2021-06 Yes 2.5mg Take 2.5 Uni vers 2.5 mg 0-11 mg by ity of tablet 14:05: mouth. [address] 2021-06 Yes 2.5mg Take 2.5 Uni vers 2.5 mg 0-11 mg by ity of tablet 14:05: mouth. [address] 2021-06 Yes 2.5mg Take 2.5 Uni vers 2.5 mg 0-11 mg by ity of tablet 14:05: mouth. [address] 2021-06 Yes 2.5mg Take 2.5 Uni vers 2.5 mg 0-11 mg by ity of tablet 14:05: mouth. [address] 2021-06 Yes 2.5mg Take 2.5 Uni vers 2.5 mg 0-11 mg by ity of tablet 14:05: mouth. [address] 2021-06 Yes 2.5mg Take 2.5 Uni vers 2.5 mg 0-11 mg by ity of tablet 14:05: mouth. [address] Branch midodrine 2021-06 Yes 2.5mg Take 2.5 Uni vers 2.5 mg 0-11 mg by ity of tablet 14:05: mouth. [address] midodrine 2021-06 Yes 2.5mg Take 2.5 Uni vers 2.5 mg 0-11 mg by ity of tablet 14:05: mouth. [address] BUPROPION 2021-06 Yes [id number] 450mg Take 450 [facility] HCL 0-11 mg by ity of (WELLBUTRIN 14:02: mouth [place] ORAL) 34 daily. [facility] traZODONE 2021-06 Yes 100mg Take 100 Uni vers (DESYREL) 0-11 mg by ity of 100 mg 14:02: mouth at [place] tablet 34 bedtime. [facility] BUPROPION 2021-06 Yes [id number] 450mg Take 450 [facility] HCL 0-11 mg by ity of (WELLBUTRIN 14:02: mouth [place] ORAL) 34 daily. [facility] traZODONE 2021-06 Yes 100mg Take 100 Uni vers (DESYREL) 0-11 mg by ity of 100 mg 14:02: mouth at [place] tablet 34 bedtime. [facility] BUPROPION 2021-06 Yes [id number] 450mg Take 450 [facility] HCL 0-11 mg by ity of (WELLBUTRIN 14:02: mouth [place] ORAL) 34 daily. [facility] traZODONE 2021-06 Yes 100mg Take 100 Uni vers (DESYREL) 0-11 mg by ity of 100 mg 14:02: mouth at [place] tablet 34 bedtime. [facility] BUPROPION 2021-06 Yes [id number] 450mg Take 450 [facility] HCL 0-11 mg by ity of (WELLBUTRIN 14:02: mouth [place] ORAL) 34 daily. [facility] traZODONE 2021-06 Yes 100mg Take 100 Uni vers (DESYREL) 0-11 mg by ity of 100 mg 14:02: mouth at [place] tablet 34 bedtime. [facility] BUPROPION 2021-06 Yes [id number] 450mg Take 450 [facility] HCL 0-11 mg by ity of (WELLBUTRIN 14:02: mouth [place] ORAL) 34 daily. [facility] traZODONE 2021-06 Yes 100mg Take 100 Uni vers (DESYREL) 0-11 mg by ity of 100 mg 14:02: mouth at [place] tablet 34 bedtime. Medical [facility] BUPROPION 2021-06 Yes [id number] 450mg Take 450 [facility] HCL 0-11 mg by ity of (WELLBUTRIN 14:02: mouth [place] ORAL) 34 daily. [facility] traZODONE 2021-06 Yes 100mg Take 100 Uni vers (DESYREL) 0-11 mg by ity of 100 mg 14:02: mouth at [place] tablet 34 bedtime. Medical [facility] BUPROPION 2021-06 Yes [id number] 450mg Take 450 [facility] HCL 0-11 mg by ity of (WELLBUTRIN 14:02: mouth [place] ORAL) 34 daily. [facility] traZODONE 2021-06 Yes 100mg Take 100 Uni vers (DESYREL) 0-11 mg by ity of 100 mg 14:02: mouth at [place] tablet 34 bedtime. [facility] BUPROPION 2021-06 Yes [id number] 450mg Take 450 [facility] HCL 0-11 mg by ity of (WELLBUTRIN 14:02: mouth [place] ORAL) 34 daily. [facility] traZODONE 2021-06 Yes 100mg Take 100 Uni vers (DESYREL) 0-11 mg by ity of 100 mg 14:02: mouth at [place] tablet 34 bedtime. [facility] BUPROPION 2021-06 Yes [id number] 450mg Take 450 [facility] HCL 0-11 mg by ity of (WELLBUTRIN 14:02: mouth [place] ORAL) 34 daily. [facility] traZODONE 2021-06 Yes 100mg Take 100 Uni vers (DESYREL) 0-11 mg by ity of 100 mg 14:02: mouth at [place] tablet 34 bedtime. [facility] BUPROPION 2021-06 Yes [id number] 450mg Take 450 [facility] HCL 0-11 mg by ity of (WELLBUTRIN 14:02: mouth [place] ORAL) 34 daily. [facility] traZODONE 2021-06 Yes 100mg Take 100 Uni vers (DESYREL) 0-11 mg by ity of 100 mg 14:02: mouth at [place] tablet 34 bedtime. [facility] BUPROPION 2021-06 Yes [id number] 450mg Take 450 [facility] HCL 0-11 mg by ity of (WELLBUTRIN 14:02: mouth [place] ORAL) 34 daily. [facility] traZODONE 2021-06 Yes 100mg Take 100 Uni vers (DESYREL) 0-11 mg by ity of 100 mg 14:02: mouth at [place] tablet 34 bedtime. [facility] BUPROPION 2021-06 Yes [id number] 450mg Take 450 [facility] HCL 0-11 mg by ity of (WELLBUTRIN 14:02: mouth [place] ORAL) 34 daily. [facility] traZODONE 2021-06 Yes 100mg Take 100 Uni vers (DESYREL) 0-11 mg by ity of 100 mg 14:02: mouth at [place] tablet 34 bedtime. [facility] BUPROPION 2021-06 Yes [id number] 450mg Take 450 [facility] HCL 0-11 mg by ity of (WELLBUTRIN 14:02: mouth [place] ORAL) 34 daily. [facility] traZODONE 2021-06 Yes 100mg Take 100 Uni vers (DESYREL) 0-11 mg by ity of 100 mg 14:02: mouth at [place] tablet 34 bedtime. [facility] BUPROPION 2021-06 Yes [id number] 450mg Take 450 [facility] HCL 0-11 mg by ity of (WELLBUTRIN 14:02: mouth [place] ORAL) 34 daily. [facility] traZODONE 2021-06 Yes 100mg Take 100 Uni vers (DESYREL) 0-11 mg by ity of 100 mg 14:02: mouth at [place] tablet 34 bedtime. [facility] BUPROPION 2021-06 Yes [id number] 450mg Take 450 [facility] HCL 0-11 mg by ity of (WELLBUTRIN 14:02: mouth [place] ORAL) 34 daily. [facility] traZODONE 2021-06 Yes 100mg Take 100 Uni vers (DESYREL) 0-11 mg by ity of 100 mg 14:02: mouth at [place] tablet 34 bedtime. [facility] BUPROPION 2021-06 Yes [id number] 450mg Take 450 [facility] HCL 0-11 mg by ity of (WELLBUTRIN 14:02: mouth [place] ORAL) 34 daily. [facility] traZODONE 2021-06 Yes 100mg Take 100 Uni vers (DESYREL) 0-11 mg by ity of 100 mg 14:02: mouth at [place] tablet 34 bedtime. [facility] BUPROPION 2021-06 Yes [id number] 450mg Take 450 [facility] HCL 0-11 mg by ity of (WELLBUTRIN 14:02: mouth [place] ORAL) 34 daily. Medical Branch traZODONE 2021-06 Yes 100mg Take 100 Uni vers (DESYREL) 0-11 mg by ity of 100 mg 14:02: mouth at [place] tablet 34 bedtime. [facility] BUPROPION 2021-06 Yes [id number] 450mg Take 450 [facility] HCL 0-11 mg by ity of (WELLBUTRIN 14:02: mouth [place] ORAL) 34 daily. [facility] traZODONE 2021-06 Yes 100mg Take 100 Uni vers (DESYREL) 0-11 mg by ity of 100 mg 14:02: mouth at [place] tablet 34 bedtime. [facility] BUPROPION 2021-06 Yes [id number] 450mg Take 450 [facility] HCL 0-11 mg by ity of (WELLBUTRIN 14:02: mouth [place] ORAL) 34 daily. [facility] traZODONE 2021-06 Yes 100mg Take 100 Uni vers (DESYREL) 0-11 mg by ity of 100 mg 14:02: mouth at [place] tablet 34 bedtime. [facility] BUPROPION 2021-06 Yes [id number] 450mg Take 450 [facility] HCL 0-11 mg by ity of (WELLBUTRIN 14:02: mouth [place] ORAL) 34 daily. [facility] traZODONE 2021-06 Yes 100mg Take 100 Uni vers (DESYREL) 0-11 mg by ity of 100 mg 14:02: mouth at [place] tablet 34 bedtime. [facility] BUPROPION 2021-06 Yes [id number] 450mg Take 450 [facility] HCL 0-11 mg by ity of (WELLBUTRIN 14:02: mouth [place] ORAL) 34 daily. [facility] traZODONE 2021-06 Yes 100mg Take 100 Uni vers (DESYREL) 0-11 mg by ity of 100 mg 14:02: mouth at [place] tablet 34 bedtime. [facility] Gabapentin 2021-06 Yes 600mg Take 600 [facility] En[facility]arbil 0-11 mg by [place] (HORIZANT) 00:00: mouth. of 600 MG TBCR 00 Medicin e Gabapentin 2021-06 Yes 600mg Take 600 [facility] Enacarbil 0-11 mg by [place] (HORIZANT) 00:00: mouth. of 600 MG TBCR 00 Medicin e Gabapentin 2021-06 Yes 600mg Take 600 [facility] Enacarbil 0-11 mg by [place] (HORIZANT) 00:00: mouth. of 600 MG TBCR 00 Medicin e gabapentin 2021-06 Yes [id number] 600mg Take 600 [facility] enacarbil 0-11 mg by ity of (HORIZANT) 00:00: mouth [place] TbSR 00 (two) Medical times Branch daily. gabapentin 2021-06 Yes [id number] 600mg Take 600 [facility] enacarbil 0-11 mg by ity of (HORIZANT) 00:00: mouth [place] 600 mg TbSR 00 (two) Medical times Branch daily. gabapentin 2021-06 Yes [id number] 600mg Take 600 [facility] enacarbil 0-11 mg by ity of (HORIZANT) 00:00: mouth [place] 600 [place] TbSR 00 (two) Medical times Branch daily. gabapentin 2021-06 Yes [id number] 600mg Take 600 [facility] enacarbil 0-11 mg by ity of (HORIZANT) 00:00: mouth [place] 600 mg TbSR 00 (two) Medical times Branch daily. gabapentin 2021-06 Yes [id number] 600mg Take 600 [facility] enacarbil 0-11 mg by ity of (HORIZANT) 00:00: mouth [place] TbSR 00 (two) Medical times Branch daily. gabapentin 2021-06 Yes [id number] 600mg Take 600 [facility] enacarbil 0-11 mg by ity of (HORIZANT) 00:00: mouth [place] 600 mg TbSR 00 (two) Medical times Branch daily. gabapentin 2021-06 Yes [id number] 600mg Take 600 [facility] enacarbil 0-11 mg by ity of (HORIZANT) 00:00: mouth [place] 600 mg TbSR 00 (two) Medical times Branch daily. gabapentin 2021-06 Yes [id number] 600mg Take 600 [facility] enacarbil 0-11 mg by ity of (HORIZANT) 00:00: mouth [place] 600 mg TbSR 00 (two) Medical times Branch daily. gabapentin 2021-06 Yes [id number] 600mg Take 600 [facility] enacarbil 0-11 mg by ity of (HORIZANT) 00:00: mouth [place] 600 mg TbSR 00 (two) Medical times Branch daily. gabapentin 2022-1 Yes [id number] 600mg Take 600 [facility] enacarbil 0-11 mg by ity of (HORIZANT) 00:00: mouth 2 [place] 600 mg TbSR 00 (two) Medical times Branch daily. gabapentin 2021-06 Yes [id number] 600mg Take 600 [facility] enacarbil 0-11 mg by ity of (HORIZANT) 00:00: mouth 2 [place] 600 mg TbSR 00 (two) Medical times Branch daily. gabapentin 2021-06 Yes [id number] 600mg Take 600 [facility] enacarbil 0-11 mg by ity of (HORIZANT) 00:00: mouth 2 [place] 600 mg TbSR 00 (two) Medical times Branch daily. gabapentin 2021-06 Yes [id number] 600mg Take 600 [facility] enacarbil 0-11 mg by ity of (HORIZANT) 00:00: mouth 2 [place] 600 mg TbSR 00 (two) Medical times Branch daily. gabapentin 2021-06 Yes [id number] 600mg Take 600 [facility] enacarbil 0-11 mg by ity of (HORIZANT) 00:00: mouth 2 [place] 600 mg TbSR 00 (two) Medical times Branch daily. gabapentin 2021-06 Yes [id number] 600mg Take 600 [facility] enacarbil 0-11 mg by ity of (HORIZANT) 00:00: mouth 2 [place] 600 mg TbSR 00 (two) Medical times Branch daily. gabapentin 2021-06 Yes [id number] 600mg Take 600 [facility] enacarbil 0-11 mg by ity of (HORIZANT) 00:00: mouth 2 [place] 600 mg TbSR 00 (two) Medical times Branch daily. gabapentin 2021-06 Yes [id number] 600mg Take 600 [facility] enacarbil 0-11 mg by ity of (HORIZANT) 00:00: mouth 2 [place] 600 mg TbSR 00 (two) Medical times Branch daily. gabapentin 2021-06 Yes [id number] 600mg Take 600 [facility] enacarbil 0-11 mg by ity of (HORIZANT) 00:00: mouth 2 [place] 600 mg TbSR 00 (two) Medical times Branch daily. gabapentin 2021-06 Yes [id number] 600mg Take 600 [facility] enacarbil 0-11 mg by ity of (HORIZANT) 00:00: mouth 2 [place] 600 mg TbSR 00 (two) Medical times Branch daily. gabapentin 2021-06 Yes [id number] 600mg Take 600 [facility] enacarbil 0-11 mg by ity of (HORIZANT) 00:00: mouth 2 [place] 600 mg TbSR 00 (two) Medical times Branch daily. gabapentin 2021-06 Yes [id number] 600mg Take 600 [facility] enacarbil 0-11 mg by ity of (HORIZANT) 00:00: mouth 2 [place] 600 mg TbSR 00 (two) Medical times Branch daily. metoprolol 2021-06 Yes Univers tartrate 25 0-09 ity of mg tablet 00:00: [place] [facility] metoprolol 2021-06 Yes Univers tartrate 25 0-09 ity of mg tablet 00:00: [place] [facility] metoprolol 2021-06 Yes Univers tartrate 25 0-09 ity of mg tablet 00:00: [place] [facility] metoprolol 2021-06 Yes Univers tartrate 25 0-09 ity of mg tablet 00:00: [place] [facility] metoprolol 2021-06 Yes Univers tartrate 25 0-09 ity of mg tablet 00:00: [place] [facility] metoprolol 2021-06 Yes Univers tartrate 25 0-09 ity of mg tablet 00:00: [place] [facility] metoprolol 2021-06 Yes Univers tartrate 25 0-09 ity of mg tablet 00:00: [place] [facility] metoprolol 2021-06 Yes Univers tartrate 25 0-09 ity of mg tablet 00:00: [place] [facility] metoprolol 2021-06 Yes Univers tartrate 25 0-09 ity of mg tablet 00:00: [place] [facility] metoprolol 2021-06 Yes Univers tartrate 25 0-09 ity of mg tablet 00:00: [place] [facility] metoprolol 2021-06 Yes Univers tartrate 25 0-09 ity of mg tablet 00:00: [place] [facility] metoprolol 2021-06 Yes Univers tartrate 25 0-09 ity of mg tablet 00:00: [place] [facility] metoprolol 2021-06 Yes Univers tartrate 25 0-09 ity of mg tablet 00:00: [place] [facility] metoprolol 2021-06 Yes Univers tartrate 25 0-09 ity of mg tablet 00:00: [place] [address] [facility] Branch metoprolol 2021-06 Yes Univers tartrate 25 0-09 ity of mg tablet 00:00: [place] [facility] metoprolol 2021-06 Yes Univers tartrate 25 0-09 ity of mg tablet 00:00: [place] [facility] metoprolol 2021-06 Yes Univers tartrate 25 0-09 ity of mg tablet 00:00: [place] [facility] metoprolol 2021-06 Yes Univers tartrate 25 0-09 ity of mg tablet 00:00: [place] [facility] metoprolol 2021-06 Yes Univers tartrate 25 0-09 ity of mg tablet 00:00: [place] [address] Medical Branch metoprolol 2021-06 Yes Univers tartrate 25 0-09 ity of mg tablet 00:00: [place] [address] [facility] Branch metoprolol 2021-06 Yes Univers tartrate 25 0-09 ity of mg tablet 00:00: [place] [facility] lamoTRIgine 2021-06 Yes Univer s 300 mg TR24 0-05 ity of 00:00: [place] [facility] lamoTRIgine 2021-06 Yes Univer s 300 mg TR24 0-05 ity of 00:00: [place] [address] [facility] Branch lamoTRIgine 2021-06 Yes Univer s 300 mg TR24 0-05 ity of 00:00: [place] [address] [facility] Branch lamoTRIgine 2021-06 Yes Univer s 300 mg TR24 0-05 ity of 00:00: [place] [address] [facility] Branch lamoTRIgine 2021- Yes Univer s 300 mg TR24 0-05 ity of 00:00: [place] [facility] lamoTRIgine 2021- Yes Univer s 300 mg TR24 0-05 ity of 00:00: [place] [address] [facility] Branch lamoTRIgine 2021- Yes Univer s 300 mg TR24 0-05 ity of 00:00: [place] [address] [facility] Branch lamoTRIgine 2021- Yes Univer s 300 mg TR24 0-05 ity of 00:00: [place] [address] [facility] Branch lamoTRIgine 2021-06 Yes Univer s 300 mg TR24 0-05 ity of 00:00: [place] [address] [facility] Branch lamoTRIgine 2021-06 Yes Univer s 300 mg TR24 0-05 ity of 00:00: [place] [address] [facility] Branch lamoTRIgine 2021-06 Yes Univer s 300 mg TR24 0-05 ity of 00:00: [place] [facility] lamoTRIgine 2021-06 Yes Univer s 300 mg TR24 0-05 ity of 00:00: [place] [facility] lamoTRIgine 2021-06 Yes Univer s 300 mg TR24 0-05 ity of 00:00: [place] [facility] lamoTRIgine 2021-06 Yes Univer s 300 mg TR24 0-05 ity of 00:00: [place] [facility] lamoTRIgine 2021-06 Yes Univer s 300 mg TR24 0-05 ity of 00:00: [place] [facility] lamoTRIgine 2021-06 Yes Univer s 300 mg TR24 0-05 ity of 00:00: [place] [facility] lamoTRIgine 2021-06 Yes Univer s 300 mg TR24 0-05 ity of 00:00: [place] [facility] lamoTRIgine 2021-06 Yes Univer s 300 mg TR24 0-05 ity of 00:00: [place] [facility] lamoTRIgine 2021-06 Yes Univer s 300 mg TR24 0-05 ity of 00:00: [place] [facility] lamoTRIgine 2021-06 Yes Univer s 300 mg TR24 0-05 ity of 00:00: [place] [facility] lamoTRIgine 2021-06 Yes Univer s 300 mg TR24 0-05 ity of 00:00: [place] [facility] ondansetron 2021-0 2021- No 4mg Q6H Take 1 [facility] (ZOFRAN) 4 03-23 10-04 tablet (4 st MG tablet 00:00: 04:59 mg total) [facility] 00 :00 by mouth l every 6 (six) hours for 3 days. dextroamphe Yes Univer s tamine-amph 9-29 ity of etamine 15 00:00: [place] mg tablet Medical Branch hydrOXYzine 0 Yes Univer s 25 mg 9-29 ity of tablet 00:00: [place] [facility] dextroamphe 0 Yes Univer s tamine-amph 9-29 ity of etamine 15 00:00: [place] mg tablet Medical [facility] hydrOXYzine 0 Yes Univer s 25 mg 9-29 ity of tablet 00:00: [place] 00 [facility] dextroamphe 2021-0 Yes Univer s tamine-amph 9-29 ity of etamine 15 00:00: [place] mg tablet 00 Medical [facility] hydrOXYzine 0 Yes Univer s 25 mg 9-29 ity of tablet 00:00: [place] 00 [facility] dextroamphe 2021-0 Yes Univer s tamine-amph 9-29 ity of etamine 15 00:00: [place] mg tablet 00 Medical Branch hydrOXYzine 0 Yes Univer s 25 mg 9-29 ity of tablet 00:00: [place] 00 [facility] dextroamphe 2021-0 Yes Univer s tamine-amph 9-29 ity of etamine 15 00:00: [place] mg tablet 00 Medical Branch hydrOXYzine 0 Yes Univer s 25 mg 9-29 ity of tablet 00:00: [place] 00 [facility] dextroamphe 2021-0 Yes Univer s tamine-amph 9- ity of etamine 15 00:00: [place] mg tablet 00 Medical Branch hydrOXYzine 2021-0 Yes Univer s 25 mg 9-29 ity of tablet 00:00: [place] 00 [facility] dextroamphe 2021-0 Yes Univer s tamine-amph 9-29 ity of etamine 15 00:00: [place] mg tablet 00 Medical Branch hydrOXYzine 2021-0 Yes Univer s 25 mg 9-29 ity of tablet 00:00: [place] 00 [facility] dextroamphe 2021-0 Yes Univer s tamine-amph 9-29 ity of etamine 15 00:00: [place] mg tablet 00 Medical [facility] hydrOXYzine 2021-0 Yes Univer s 25 mg 9-29 ity of tablet 00:00: [place] 00 [facility] dextroamphe 2021-0 Yes Univer s tamine-amph 9-29 ity of etamine 15 00:00: [place] mg tablet 00 [facility] hydrOXYzine 2021-0 Yes Univer s 25 mg 9-29 ity of tablet 00:00: [place] 00 [facility] dextroamphe 2021-0 Yes Univer s tamine-amph 9-29 ity of etamine 15 00:00: [place] mg tablet 00 Medical Branch hydrOXYzine 2021-0 Yes Univer s 25 mg 9-29 ity of tablet 00:00: [place] 00 [facility] dextroamphe 2021-0 Yes Univer s tamine-amph 9-29 ity of etamine 15 00:00: [place] mg tablet 00 Medical Branch hydrOXYzine 2021-0 Yes Univer s 25 mg 9-29 ity of tablet 00:00: [place] 00 [facility] dextroamphe 2021-0 Yes Univer s tamine-amph 9-29 ity of etamine 15 00:00: [place] mg tablet 00 Medical Branch hydrOXYzine 2021-0 Yes Univer s 25 mg 9-29 ity of tablet 00:00: [place] 00 [facility] dextroamphe 2021-0 Yes Univer s tamine-amph 9-29 ity of etamine 15 00:00: [place] mg tablet 00 Medical Branch hydrOXYzine 2021-0 Yes Univer s 25 mg 9-29 ity of tablet 00:00: [place] 00 [facility] Branch dextroamphe 2021-0 Yes Univer s tamine-amph 9-29 ity of etamine 15 00:00: [place] mg tablet 00 Medical Branch hydrOXYzine 2021-0 Yes Univer s 25 mg 9-29 ity of tablet 00:00: [place] 00 [facility] Branch dextroamphe 2021-0 Yes Univer s tamine-amph 9- ity of etamine 15 00:00: [place] mg tablet 00 Medical Branch hydrOXYzine 2021-0 Yes Univer s 25 mg 9-29 ity of tablet 00:00: [place] 00 [facility] dextroamphe 2021-0 Yes Univer s tamine-amph 9-29 ity of etamine 15 00:00: [place] mg tablet 00 Medical Branch hydrOXYzine 2021-0 Yes Univer s 25 mg 9-29 ity of tablet 00:00: [place] 00 [facility] dextroamphe 2021-0 Yes Univer s tamine-amph 9-29 ity of etamine 15 00:00: [place] mg tablet 00 Medical Branch hydrOXYzine 2021-0 Yes Univer s 25 mg 9-29 ity of tablet 00:00: [place] 00 [facility] dextroamphe 2021-0 Yes Univer s tamine-amph 9-29 ity of etamine 15 00:00: [place] mg tablet 00 [facility] hydrOXYzine Yes Univer s 25 mg 03-22 ity of tablet 00:00: [place] [facility] dextroamphe Yes Univer s tamine-amph 03-22 ity of etamine 15 00:00: [place] mg tablet 00 Medical Branch hydrOXYzine Yes Univer s 25 mg 03-22 ity of tablet 00:00: [place] [facility] dextroamphe Yes Univer s tamine-amph 03-22 ity of etamine 15 00:00: [place] mg tablet 00 [facility] hydrOXYzine Yes Univer s 25 mg 03-22 ity of tablet 00:00: [place] [facility] dextroamphe Yes Univer s tamine-amph 03-22 ity of etamine 15 00:00: [place] mg tablet 00 [facility] hydrOXYzine Yes Univer s 25 mg 03-22 ity of tablet 00:00: [place] [facility] PAXLOVID, 2021- No [facility] 300/100, 20 03-20 10-13 [facility] x 150 MG & 00:00: 00:00 of 10 x 100MG 00 :00 Medicin tablet e therapy pack cefpodoxime 2021- No 100mg Q.5D Take [address] [facility] [address] [facility] (VANTIN) 03-18 tablet [facility] 100 MG 00:00: 00:00 (100 mg Medical tablet 00 :00 total) by Center mouth 2 (two) times daily for 1 day. dextroamphe 2021- No 15mg QD Take [address] [facility] tamine-amph 03-17 by mouth [facility] es etamine 15 15:26: 00:00 every Medic al mg Tab 04 :00 morning . [place] methocarbam Yes [facility] ol 03-17 [place] (ROBAXIN) 00:00: of 500 MG 00 Medicin tablet e methocarbam Yes [facility] ol 03-17 [place] (ROBAXIN) 00:00: of 500 MG 00 Medicin tablet e ibuprofen Yes 200mg Take 200 [place] [facility] (MOTRIN) 03-17 mg by [place] 400 MG 00:00: mouth of tablet 00 every 6 Medicin hours as e needed. methocarbam 0 Yes [facility] ol 9-24 [facility] (ROBAXIN) 00:00: of 500 MG 00 Medicin tablet e ibuprofen 0 Yes 200mg Take 200 [place] [facility] (MOTRIN) 9-24 mg by [place] 400 MG 00:00: mouth of tablet 00 every 6 Medicin hours as e needed. methocarbam 0 Yes [facility] ol 9-24 [facility] (ROBAXIN) 00:00: of 500 MG 00 Medicin tablet e ibuprofen 0 Yes 200mg Take 200 [place] [facility] (MOTRIN) 9-24 mg by [place] 400 MG 00:00: mouth of tablet 00 every 6 Medicin hours as e needed. HYDROcodone Yes 1{tbl} Take [address] [facility] [address] [facility] -acetaminop 9-24 tablet by [facility] (NORCO 00:00: mouth Medica l 5-325) 00 every 4 Center 5-325 mg (four) per tablet hours as needed. Max Daily Amount: 6 tablets fluconazole 0 Yes Univer s 150 mg 9-24 ity of tablet 00:00: [place] [facility] methocarbam 2021-0 Yes Univer s oL 500 mg 9-24 ity of tablet 00:00: [place] [facility] fluconazole 2021-0 Yes Univer s 150 mg 9-24 ity of tablet 00:00: [place] [facility] methocarbam 2021-0 Yes Univer s oL 500 mg 9-24 ity of tablet 00:00: [place] [facility] fluconazole 2-0 Yes Univer s 150 mg 9-24 ity of tablet 00:00: [place] [facility] methocarbam 2021-0 Yes Univer s oL 500 mg 9-24 ity of tablet 00:00: [place] [facility] fluconazole 2-0 Yes Univer s 150 mg 9-24 ity of tablet 00:00: [place] [facility] methocarbam 2021-0 Yes Univer s oL 500 mg 9-24 ity of tablet 00:00: [place] [facility] fluconazole 2-0 Yes Univer s 150 mg 9-24 ity of tablet 00:00: [place] [facility] methocarbam 2021-0 Yes Univer s oL 500 mg 9-24 ity of tablet 00:00: [place] [facility] fluconazole 2-0 Yes Univer s 150 mg 9-24 ity of tablet 00:00: [place] 00 [facility] methocarbam 2022-0 Yes Univer s oL 500 mg 9-24 ity of tablet 00:00: [place] 00 [facility] fluconazole 2022-0 Yes Univer s 150 mg 9-24 ity of tablet 00:00: [place] 00 [facility] methocarbam 2022-0 Yes Univer s oL 500 mg 9-24 ity of tablet 00:00: [place] 00 [facility] fluconazole 2022-0 Yes Univer s 150 mg 9-24 ity of tablet 00:00: [place] 00 [facility] methocarbam 2022-0 Yes Univer s oL 500 mg 9-24 ity of tablet 00:00: [place] [address] Medical Branch fluconazole 2022-0 Yes Univer s 150 mg 9-24 ity of tablet 00:00: [place] [address] [facility] Branch methocarbam 2022-0 Yes Univer s oL 500 mg 9-24 ity of tablet 00:00: [place] [address] [facility] Branch fluconazole 2022-0 Yes Univer s 150 mg 9-24 ity of tablet 00:00: [place] [address] [facility] Branch methocarbam 2022-0 Yes Univer s oL 500 mg 9-24 ity of tablet 00:00: [place] [address] [facility] Branch fluconazole 2022-0 Yes Univer s 150 mg 9-24 ity of tablet 00:00: [place] [address] [facility] Branch methocarbam 2022-0 Yes Univer s oL 500 mg 9-24 ity of tablet 00:00: [place] [address] [facility] Branch fluconazole 2022-0 Yes Univer s 150 mg 9-24 ity of tablet 00:00: [place] [facility] methocarbam 2022-0 Yes Univer s oL 500 mg 9-24 ity of tablet 00:00: [place] [address] [facility] Branch fluconazole 2022-0 Yes Univer s 150 mg 9-24 ity of tablet 00:00: [place] [address] [facility] Branch methocarbam 2022-0 Yes Univer s oL 500 mg 9-24 ity of tablet 00:00: [place] [address] Medical Branch fluconazole 2022-0 Yes Univer [facility] 150 mg 9-24 ity of tablet 00:00: [place] [address] [facility] methocarbam 2022-0 Yes Univer [facility] oL 500 mg 9-24 ity of tablet 00:00: [place] [facility] fluconazole 2022-0 Yes [facility] 150 mg 9-24 ity of tablet 00:00: [place] [address] [facility] methocarbam 2-0 Yes [facility] oL 500 mg 9-24 ity of tablet 00:00: [place] [address] [facility] fluconazole 2-0 Yes [facility] 150 mg 9-24 ity of tablet 00:00: [place] [facility] methocarbam 2021-0 Yes [facility] oL 500 mg 9-24 ity of tablet 00:00: [place] [address] [facility] fluconazole 2-0 Yes [facility] 150 mg 9-24 ity of tablet 00:00: [place] [address] [facility] methocarbam 2021-0 Yes [facility] oL 500 mg 9-24 ity of tablet 00:00: [place] [address] [facility] fluconazole 2-0 Yes [facility] 150 mg 9-24 ity of tablet 00:00: [place] [address] [facility] methocarbam 2021-0 Yes [facility] oL 500 mg 9-24 ity of tablet 00:00: [place] [address] [facility] fluconazole 2-0 Yes [facility] 150 mg 9-24 ity of tablet 00:00: [place] [address] [facility] methocarbam 2021-0 Yes [facility] oL 500 mg 9-24 ity of tablet 00:00: [place] [address] [facility] fluconazole 2-0 Yes [facility] 150 mg 9-24 ity of tablet 00:00: [place] [address] [facility] methocarbam 2021-0 Yes [facility] oL 500 mg 9-24 ity of tablet 00:00: [place] [address] [facility] fluconazole 2-0 Yes [facility] 150 mg 9-24 ity of tablet 00:00: [place] [address] [facility] methocarbam 2-0 Yes Univer [facility] oL 500 mg 9-24 ity of tablet 00:00: [address] nitrofurant 2021-0 2021- No 100mg Q.5D Take [address] [facility] [address] [facility], 03-17 11-14 [facility] macrocrysta [facility]: 00:00 (100 mg Me dical l-monohydra 00 :00 total) by Maggy ter te, mouth 2 (MACROBID) (two) 100 MG times capsule daily. ibuprofen 0 2021- No 400mg Take [address] [facility] (ADVIL,MOTR 03-17 10-04 tablet [facility] IN) 400 MG 00:00: 23:59 (400 mg Med ical tablet 00 :00 total) by Center mouth every 6 (six) hours as needed for up to 10 days. methocarbam 2021- No 500mg Q.25D Take [address] oL 03-17 10-04 [facility] (Robaxin) 00:00: 23:59 (500 mg Medi tyler 500 MG 00 :00 total) by Center tablet mouth 4 (four) times daily for 10 days. lamoTRIgine 2021- No 250mg QD Take [address] [facility] 250 mg TR24 03-15 mg by [facility] 01:30: 00:00 mouth Medical 29 :00 nightly . [place] dextroamphe 2021- No Take by [facility] tamine-amph 03-15 mouth as Ady es etamine 5 01:29: 00:00 directed Med ical mg Tab 50 :00 In the Center afternoon. LIALDA 1.2 0 Yes [facility] gram EC 9-22 ity of tablet 00:00: [place] [facility] LIALDA 1.2 2021-0 Yes [facility] gram EC 9-22 ity of tablet 00:00: [place] [facility] LIALDA 1.2 2021-0 Yes Univers gram EC 9-22 ity of tablet 00:00: [place] [facility] LIALDA 1.2 2021-0 Yes Univers gram EC 9-22 ity of tablet 00:00: [facility] Branch LIALDA 1.2 2021-0 Yes Univers gram EC 9-22 ity of tablet 00:00: [facility] Branch LIALDA 1.2 2021-0 Yes Univers gram EC 9-22 ity of tablet 00:00: [facility] Branch LIALDA 1.2 2021-0 Yes Univers gram EC 9-22 ity of tablet 00:00: [facility] Branch LIALDA 1.2 2021-0 Yes Univers gram EC 9-22 ity of tablet 00:00: [facility] Branch LIALDA 1.2 2021-0 Yes [facility] gram EC 9-22 ity of tablet 00:00: [facility] Branch LIALDA 1.2 2021-0 Yes Univers gram EC 9-22 ity of tablet 00:00: Medical Branch LIALDA 1.2 2021-0 Yes Univers gram EC 9-22 ity of tablet 00:00: [place] 00 [facility] LIALDA 1.2 2021-0 Yes Univers gram EC 9-22 ity of tablet 00:00: 00 [facility] LIALDA 1.2 2021-0 Yes Univers gram EC 9-22 ity of tablet 00:00: 00 [facility] LIALDA 1.2 2021-0 Yes Univers gram EC 9-22 ity of tablet 00:00: 00 [facility] LIALDA 1.2 2021-0 Yes Univers gram EC 9-22 ity of tablet 00:00: [facility] Branch LIALDA 1.2 2021-0 Yes Univers gram EC 9-22 ity of tablet 00:00: [place] 00 [facility] LIALDA 1.2 2021-0 Yes Univers gram EC 9-22 ity of tablet 00:00: Medical Branch LIALDA 1.2 2021-0 Yes Univers gram EC 9-22 ity of tablet 00:00: [facility] Branch LIALDA 1.2 2021-0 Yes Univers gram EC 9-22 ity of tablet 00:00: 00 [facility] LIALDA 1.2 2021-0 Yes Univers gram EC 9-22 ity of tablet 00:00: [place] 00 [facility] LIALDA 1.2 2021-0 Yes [facility] gram EC 9-22 ity of tablet 00:00: [place] 00 [facility] propranoloL 2021-0 2021- No 20mg Q.[id number] Take [address] [facility] (INDERAL) 03-07 [id number] by mouth 3 [facility] 20 MG 16:36: 00:00 3D (three) Medical tablet 44 :00 times Center daily. fluticasone 2021- No 1{puff} Inhale [address] [facility] -salmeterol 03-07 puff by Luke [facility] (ADVAIR) 16:35: 00:00 mouth via Med ical 100-50 21 :00 inhaler Center mcg/dose every 12 diskus (twelve) inhaler hours. dexlansopra 2021- No 60mg QD Take [address] [facility] zole 60 mg 03-07 by mouth [facility] capsule 16:34: 00:00 daily. Medical 27 :00 Center ascorbic 2021- No 3000mg QD Take 3,[address] [facility] acid, 9-14 09-14 mg by [facility] vitamin C, 16:33: 00:00 mouth Medic al (VITAMIN C) 56 :00 daily. Center 1000 MG tablet apixaban 2021- No 5mg Q.5D Take [address] [facility] (ELIQUIS) 5 9-14 09-14 by mouth 2 [facility] mg Tab 16:33: 00:00 (two) Medical tablet 29 :00 times Center daily. fluticasone Yes 1{puff} Inhale 1 [facility] -salmeterol 9-14 Puff by [employer] [facility] (ADVAIR) 11:58: mouth of 500-50 02 every 12 Medicin MCG/DOSE hours. e inhaler fluticasone Yes 1{puff} Inhale 1 [facility] -salmeterol 9-14 Puff by [employer] [facility] (ADVAIR) 11:58: mouth of 500-50 02 every 12 Medicin MCG/DOSE hours. e inhaler fluticasone Yes 1{puff} Inhale 1 [facility] -salmeterol 9-14 Puff by [employer] [facility] (ADVAIR) 11:58: mouth of 500-50 02 every 12 Medicin MCG/DOSE hours. e inhaler fluticasone Yes 1{puff} Inhale 1 [facility] -salmeterol 9-14 Puff by [employer] (ADVAIR) 11:58: mouth of 500-50 02 every 12 Medicin MCG/DOSE hours. e inhaler hydrocodone Yes [id number] 1{tbl} Take 1 [facility] -acetaminop 9-13 Tablet by [facility] hen (NORCO) 00:00: mouth of 5-325 mg 00 every 4 Medicin tablet hours as e needed for Pain. amphetamine Yes [id number] 1{tbl} Take 1 [facility] -dextroamph 9-13 Tablet by [facility] etamine 00:00: mouth of (ADDERALL, 00 daily. In Medi mari 15MG,) 15 the e MG tablet morning amphetamine Yes [id number] 1{tbl} Take 1 [facility] -dextroamph 9-13 Tablet by [facility] etamine 00:00: mouth of (ADDERALL, 00 daily. Medicin 5MG,) 5 MG Take in e tablet afternoon hydrOXYzine 2021-0 Yes [id number] 25mg Take 1 [facility] (ATARAX) 25 9-13 Tablet by Col [facility]ge MG tablet 00:00: mouth 3 of 00 times Medicin daily as e needed for Itching. trazodone 2021-0 Yes [id number] 100mg Take 1 [facility] (DESYREL) 9-13 Tablet by Colle ge 100 MG 00:00: mouth of tablet 00 nightly. Medicin e LamoTRIgine 2021-0 Yes [id number] 1{tbl} Take 1 [facility] 300 MG TB24 9-13 Tablet by Col [facility]ge 00:00: mouth of 00 daily. Medicin e hydrocodone 2021-0 Yes [id number] 1{tbl} Take 1 [facility] -acetaminop 9-13 Tablet by [facility] hen (NORCO) 00:00: mouth of 5-325 mg 00 every 4 Medicin tablet hours as e needed for Pain. amphetamine 2021-0 Yes [id number] 1{tbl} Take 1 [facility] -dextroamph 9-13 Tablet by Col [facility] etamine 00:00: mouth of (ADDERALL, 00 daily. In Medi mari 15MG,) 15 the e MG tablet morning amphetamine 2021-0 Yes [id number] 1{tbl} Take 1 [facility] -dextroamph 9-13 Tablet by Col lege etamine 00:00: mouth of (ADDERALL, 00 daily. Medicin 5MG,) 5 MG Take in e tablet afternoon hydrOXYzine 2021-0 Yes [id number] 25mg Take 1 [facility] (ATARAX) 25 9-13 Tablet by Col lege MG tablet 00:00: mouth 3 of 00 times Medicin daily as e needed for Itching. trazodone 2021-0 Yes [id number] 100mg Take 1 [facility] (DESYREL) 9-13 Tablet by Colle ge 100 MG 00:00: mouth of tablet 00 nightly. Medicin e LamoTRIgine 2021-0 Yes [id number] 1{tbl} Take 1 [facility] 300 MG TB24 9-13 Tablet by Col lege 00:00: mouth of 00 daily. Medicin e hydrocodone 2021-0 Yes [id number] 1{tbl} Take 1 [facility] -acetaminop 9-13 Tablet by [facility] (NORCO) 00:00: mouth of 5-325 mg 00 every 4 Medicin tablet hours as e needed for Pain. amphetamine Yes [id number] 1{tbl} Take 1 [facility] -dextroamph 9-13 Tablet by Col lege etamine 00:00: mouth of (ADDERALL, 00 daily. In Medi mari 15MG,) 15 the e MG tablet morning amphetamine Yes [id number] 1{tbl} Take 1 [facility] -dextroamph 9-13 Tablet by Col [facility]ge etamine 00:00: mouth of (ADDERALL, 00 daily. Medicin 5MG,) 5 MG Take in e tablet afternoon hydrOXYzine Yes [id number] 25mg Take 1 [facility] (ATARAX) 25 9-13 Tablet by Col lege MG tablet 00:00: mouth 3 of 00 times Medicin daily as e needed for Itching. trazodone Yes [id number] 100mg Take 1 [facility] (DESYREL) 9-13 Tablet by Colle ge 100 MG 00:00: mouth of tablet 00 nightly. Medicin e LamoTRIgine Yes [id number] 1{tbl} Take 1 [facility] 300 MG TB24 9-13 Tablet by Col lege 00:00: mouth of 00 daily. Medicin e hydrocodone Yes [id number] 1{tbl} Take 1 [facility] -acetaminop 9-13 Tablet by [facility] hen (NORCO) 00:00: mouth of 5-325 mg 00 every 4 Medicin tablet hours as e needed for Pain. amphetamine Yes [id number] 1{tbl} Take 1 [facility] -dextroamph 9-13 Tablet by Col lege etamine 00:00: mouth of (ADDERALL, 00 daily. In Medi mari 15MG,) 15 the e MG tablet morning amphetamine Yes [id number] 1{tbl} Take 1 [facility] -dextroamph 9-13 Tablet by Col [facility]ge etamine 00:00: mouth of (ADDERALL, 00 daily. Medicin 5MG,) 5 MG Take in e tablet afternoon hydrOXYzine 2021-0 Yes [id number] 25mg Take 1 [facility] (ATARAX) 25 9-13 Tablet by Col lege MG tablet 00:00: mouth 3 of 00 times Medicin daily as e needed for Itching. trazodone 2021-0 Yes [id number] 100mg Take 1 [facility] (DESYREL) 9-13 Tablet by Colle ge 100 MG 00:00: mouth of tablet 00 nightly. Medicin e LamoTRIgine 2021-0 Yes [id number] 1{tbl} Take 1 [facility] 300 MG TB24 9-13 Tablet by Col lege 00:00: mouth of 00 daily. Medicin e hydrOXYzine 2021-0 Yes [id number] 25mg Take 1 [facility] (ATARAX) 25 9-13 Tablet by Col lege MG tablet 00:00: mouth 3 of 00 times Medicin daily as e needed for Itching. trazodone 2021-0 Yes [id number] 100mg Take 1 [facility] (DESYREL) 9-13 Tablet by Colle ge 100 MG 00:00: mouth of tablet 00 nightly. Medicin e LamoTRIgine 2021-0 Yes [id number] 1{tbl} Take 1 [facility] 300 MG TB24 9-13 Tablet by Col lege 00:00: mouth of 00 daily. Medicin e hydrOXYzine 2021-0 Yes [id number] 25mg Take 1 [facility] (ATARAX) 25 9-13 Tablet by Col lege MG tablet 00:00: mouth 3 of 00 times Medicin daily as e needed for Itching. trazodone 2021-0 Yes [id number] 100mg Take 1 [facility] (DESYREL) 9-13 Tablet by Colle ge 100 MG 00:00: mouth of tablet 00 nightly. Medicin e LamoTRIgine 2021-0 Yes [id number] 1{tbl} Take 1 [facility] 300 MG TB24 9-13 Tablet by Col lege 00:00: mouth of 00 daily. Medicin e hydrOXYzine 2021-0 Yes [id number] 25mg Take 1 [facility] (ATARAX) 25 9-13 Tablet by Col lege MG tablet 00:00: mouth 3 of 00 times Medicin daily as e needed for Itching. trazodone 2021-0 Yes [id number] 100mg Take 1 [facility] (DESYREL) 9-13 Tablet by Colle ge 100 MG 00:00: mouth of tablet 00 nightly. Medicin e LamoTRIgine Yes [id number] 1{tbl} Take 1 [facility] 300 MG TB24 9-13 Tablet by Col lege 00:00: mouth of 00 daily. Medicin e hydrOXYzine Yes [id number] 25mg Take 1 [facility] (ATARAX) 25 9-13 Tablet by Col lege MG tablet 00:00: mouth 3 of 00 times Medicin daily as e needed for Itching. trazodone Yes [id number] 100mg Take 1 [facility] (DESYREL) 9-13 Tablet by Colle ge 100 MG 00:00: mouth of tablet 00 nightly. Medicin e LamoTRIgine Yes [id number] 1{tbl} Take 1 [facility] 300 MG TB24 9-13 Tablet by Col lege 00:00: mouth of 00 daily. Medicin e hydrocodone 2021- No [id number] 1{tbl} Take 1 [facility] -acetaminop 9-13 10-13 Tablet by Co llreji hen (Virtual Paper) 00:00: 00:00 mouth of 5-325 mg 00 :00 every 4 Medicin tablet hours as e needed for Pain. amphetamine 2021- No [id number] 1{tbl} Take 1 [facility] -dextroamph 9-13 10-13 Tablet by Co [facility]lege etamine 00:00: 00:00 mouth of (ADDERALL, 00 :00 daily. In Medi mari 15MG,) 15 the e MG tablet morning amphetamine 2021- No [id number] 1{tbl} Take 1 [facility] -dextroamph 9-13 10-13 Tablet by Co [facility]lege etamine 00:00: 00:00 mouth of (ADDERALL, 00 :00 daily. Medicin 5MG,) 5 MG Take in e tablet afternoon HYDROcodone 2021- No 1{tbl} Take [address] -acetaminop 9-13 09-24 tablet by Jaskaran aguilar (NORCO 00:00: 00:00 mouth Medic al 5-325) 00 :00 every 4 Center 5-325 mg (four) per tablet hours as needed. folic acid Yes 1000ug QD Take 1,[address] [facility] (FOLVITE) 1 9-11 mcg by [facility] MG tablet 00:00: mouth Medical 00 daily. Center baclofen 2021- No 10mg Q.[id number] Take [address] [facility] (LIORESAL) 03-04-24 [id number] by mouth 3 [facility] 10 MG 00:00: 00:00 3D (three) Medical tablet 00 :00 times Center daily. predniSONE 2021- No Take 2 [facility] (DELTASONE) 03-01 Tablets by [facility] 10 MG 00:00: 04:59 mouth of tablet 00 :00 daily for Medicin 5 days, e THEN 1 Tablet daily for 5 days. predniSONE 2021- No Take 2 [facility] (DELTASONE) 03-01 Tablets by [facility] 10 MG 00:00: 04:59 mouth of tablet 00 :00 daily for Medicin 5 days, e THEN 1 Tablet daily for 5 days. predniSONE 2021- No Take by [facility] (DELTASONE) 03-0118 mouth as Ady es 10 MG 00:00: 23:59 directed Medical tablet 00 :00 Take 20 mg Center by mouth for 5 days and then take 10mg by mouth for 5 days. Medication , dose, and frequency confirmed and verified with the patient.. methylPREDN Yes Take as [place] [facility] ISolone 4 02-27 prescribed [facility]o ege MG TBPK 00:00: 00 Medicin e methylPREDN 2021-0 Yes Take as [place] [facility] ISolone 4 02-27 prescribed [facility] e[facility] MG TBPK 00:00: Medicin e methylPREDN 2021-0 Yes Take as [place] [facility] ISolone 4 - prescribed [facility] ege MG TBPK 00:00: 00 Medicin e methylPREDN 2021-0 Yes Take as [place] [facility] ISolone 4 02-27 prescribed [facility] ege MG TBPK 00:00: Medicin e methylPREDN 2021-0 Yes Take as [place] [facility] ISolone 4 02-27 prescribed [facility] ege MG TBPK 00:00: 00 Medicin e methylPREDN 2022-0 Yes Take as [place] [facility] ISolone 4 9- prescribed [facility] e[facility] MG TBPK 00:00: of Medicin e methylPREDN 0 Yes Take as [place] [facility] ISolone 4 9-06 prescribed [facility] ege MG TBPK 00:00: Medicin e methylPREDN 2021-0 Yes Take as [place] [facility] ISolone 4 - prescribed [facility]o ege MG TBPK 00:00: of Medicin e fluticasone 0 Yes 1{puff} Inhale 1 [facility] -salmeterol 8-31 Puff by Oralia sy (ADVAIR) 11:54: mouth of 500-50 34 every 12 Medicin MCG/DOSE hours. e inhaler cyclobenzap 0 Yes Univer s rine 5 mg 8-27 ity of tablet 00:00: [place] [address] [facility] cyclobenzap 0 Yes Univer s rine 5 mg 8-27 ity of tablet 00:00: [place] [address] [facility] cyclobenzap 2021-0 Yes Univer s rine 5 mg 8-27 ity of tablet 00:00: [place] [address] [facility] cyclobenzap 2021-0 Yes Univer s rine 5 mg 8-27 ity of tablet 00:00: [place] [address] [facility] cyclobenzap 2021-0 Yes Univer s rine 5 mg 8-27 ity of tablet 00:00: [place] [address] [facility] cyclobenzap 2021-0 Yes Univer s rine 5 mg 8-27 ity of tablet 00:00: [place] [address] [facility] cyclobenzap 2021-0 Yes Univer s rine 5 mg 8-27 ity of tablet 00:00: [place] [facility] cyclobenzap 2021-0 Yes Univer s rine 5 mg 8-27 ity of tablet 00:00: [place] [address] [facility] cyclobenzap 2021-0 Yes Univer s rine 5 mg 8-27 ity of tablet 00:00: [place] [address] [facility] cyclobenzap 2021-0 Yes Univer s rine 5 mg 8-27 ity of tablet 00:00: [place] [address] [facility] cyclobenzap 2021-0 Yes Univer s rine 5 mg 8-27 ity of tablet 00:00: [place] [address] [facility] cyclobenzap 2021-0 Yes Univer s rine 5 mg 8-27 ity of tablet 00:00: [place] [address] [facility] cyclobenzap 202-0 Yes Univer s rine 5 mg 8-27 ity of tablet 00:00: [place] [address] [facility] cyclobenzap 2021-0 Yes Univer s rine 5 mg 8-27 ity of tablet 00:00: [place] [address] [facility] cyclobenzap 2021-0 Yes Univer s rine 5 mg 8-27 ity of tablet 00:00: [place] [address] [facility] cyclobenzap 202-0 Yes Univer s rine 5 mg 8-27 ity of tablet 00:00: [place] [address] [facility] cyclobenzap 2021-0 Yes Univer s rine 5 mg 8-27 ity of tablet 00:00: [place] [address] [facility] cyclobenzap 2021-0 Yes Univer s rine 5 mg 8-27 ity of tablet 00:00: [place] [address] [facility] cyclobenzap 2021-0 Yes Univer s rine 5 mg 8-27 ity of tablet 00:00: [place] [address] [facility] cyclobenzap 2021-0 Yes Univer s rine 5 mg 8-27 ity of tablet 00:00: [place] [address] [facility] cyclobenzap 2021-0 Yes Univer s rine 5 mg 8-27 ity of tablet 00:00: [place] [address] [facility] cyclobenzap 2021-[address]) 00:00: of 5 MG tablet 00 Medicin e cyclobenzap 2021-[address]) 00:00: of 5 MG tablet 00 Medicin e cyclobenzap 2021-[address]) 00:00: of 5 MG tablet 00 Medicin e cyclobenzap 2021-[address]) 00:00: of 5 MG tablet 00 Medicin e cyclobenzap 2021-[address] 00:00: of 5 MG tablet 00 Medicin e cyclobenzap 2021-[address]) 00:00: of 5 MG tablet 00 Medicin e cyclobenzap 2021-[address]) 00:00: of 5 MG tablet 00 Medicin e cyclobenzap 2021-0 Yes [facility] rine 02-17 [facility]) 00:00: of 5 MG tablet 00 Medicin e methylPREDN 2021- No Take as [facility] albertina Cannon 4 02-16 prescribed Col [facility]ge MG TBPK 00:00: 00:00 of 00 :00 Medicin e midodrine 2021-0 Yes 2.5 mg po [place] [facility] (PROAMATINE 8-22 qam and at [facility] ) 2.5 MG 00:00: noon x 1 of tablet 00 week Medicin followed e by 5 mg po qam and q noon from then on. Patient clarified that she had an adverse reaction to Aprodine and not an allergic reaction. fluconazole 2021-0 Yes 100mg Take 1 [place] [facility] (DIFLUCAN) 8-22 Tablet by [facility] ege 100 MG 00:00: mouth of tablet 00 daily. Medicin e nystatin 2021-0 Yes [id number] Take 1 mL [facility] (MYCOSTATIN 8-22 by mouth De[facility] ege ) [id number] 00:00: four times of UNIT/ML 00 daily. Medicin suspension e midodrine 2021-0 Yes 2.5 mg po [place] [facility] (PROAMATINE 8-22 qam and at [facility] ) 2.5 MG 00:00: noon x 1 of tablet 00 week Medicin followed e by 5 mg po qam and q noon from then on. Patient clarified that she had an adverse reaction to Aprodine and not an allergic reaction. fluconazole 2-0 Yes 100mg Take 1 [place] [facility] (DIFLUCAN) 8-22 Tablet by [facility] 100 MG 00:00: mouth of tablet 00 daily. Medicin e nystatin 2-0 Yes [id number] Take 1 mL [facility] (MYCOSTATIN 8-22 by mouth De[facility] ege ) [id number] 00:00: four times of UNIT/ML 00 daily. Medicin suspension e midodrine 2-0 Yes 2.5 mg po [place] [facility] (PROAMATINE 8-22 qam and at [facility] ) 2.5 MG 00:00: noon x 1 of tablet 00 week Medicin followed e by 5 mg po qam and q noon from then on. Patient clarified that she had an adverse reaction to Aprodine and not an allergic reaction. fluconazole 2022-0 Yes 100mg Take 1 [place] [facility] (DIFLUCAN) 8-22 Tablet by [facility] 100 MG 00:00: mouth of tablet 00 daily. Medicin e nystatin 2022-0 Yes [id number] Take 1 mL [facility] (MYCOSTATIN 8-22 by mouth De[facility] ege ) [id number] 00:00: four times of UNIT/ML 00 daily. Medicin suspension e midodrine 2022-0 Yes 2.5 mg po [place] [facility] (PROAMATINE 8-22 qam and at [facility] ) 2.5 MG 00:00: noon x 1 of tablet 00 week Medicin followed e by 5 mg po qam and q noon from then on. Patient clarified that she had an adverse reaction to Aprodine and not an allergic reaction. fluconazole 2022-0 Yes 100mg Take 1 [place] [facility] (DIFLUCAN) 8-22 Tablet by [facility] 100 MG 00:00: mouth of tablet 00 daily. Medicin e nystatin 2022-0 Yes [id number] Take 1 mL [facility] (MYCOSTATIN 8-22 by mouth [facility] ege ) [id number] 00:00: four times of UNIT/ML 00 daily. Medicin suspension e midodrine 2022-0 Yes 2.5 mg po [place] [facility] (PROAMATINE 8-22 qam and at [facility] ) 2.5 MG 00:00: noon x 1 of tablet 00 week Medicin followed e by 5 mg po qam and q noon from then on. Patient clarified that she had an adverse reaction to Aprodine and not an allergic reaction. fluconazole 2022-0 Yes 100mg Take 1 [place] [facility] (DIFLUCAN) 8-22 Tablet by [facility] e[facility] 100 MG 00:00: mouth of tablet 00 daily. Medicin e nystatin 2022-0 Yes [id number] Take 1 mL [facility] (MYCOSTATIN 8-22 by mouth De[facility] ege ) [id number] 00:00: four times of UNIT/ML 00 daily. Medicin suspension e midodrine 2022-0 Yes 2.5 mg po [place] [facility] (PROAMATINE 8-22 qam and at [facility] ) 2.5 MG 00:00: noon x 1 of tablet 00 week Medicin followed e by 5 mg po qam and q noon from then on. Patient clarified that she had an adverse reaction to Aprodine and not an allergic reaction. nystatin 2022-0 Yes [id number] Take 1 mL [facility] (MYCOSTATIN 8-22 by mouth [facility] ege ) 00:00: four times of UNIT/ML 00 daily. Medicin suspension e midodrine 2-0 Yes 2.5 mg po [place] [facility] (PROAMATINE 8-22 qam and at [facility] ) 2.5 MG 00:00: noon x 1 of tablet 00 week Medicin followed e by 5 mg po qam and q noon from then on. Patient clarified that she had an adverse reaction to Aprodine and not an allergic reaction. nystatin 2022-0 Yes [id number] Take 1 mL [facility] (MYCOSTATIN 8-22 by mouth [facility] e[facility] ) 00:00: four times of UNIT/ML 00 daily. Medicin suspension e midodrine 2022-0 Yes 2.5 mg po [place] [facility] (PROAMATINE 8-22 qam and at [facility] ) 2.5 MG 00:00: noon x 1 of tablet 00 week Medicin followed e by 5 mg po qam and q noon from then on. Patient clarified that she had an adverse reaction to Aprodine and not an allergic reaction. nystatin 2022-0 Yes [id number] Take 1 mL [facility] (MYCOSTATIN 8-22 by mouth [facility] ege ) [id number] 00:00: four times of UNIT/ML 00 daily. Medicin suspension e midodrine 2-0 Yes 2.5 mg po [place] [facility] (PROAMATINE 8-22 qam and at [facility] ) 2.5 MG 00:00: noon x 1 of tablet 00 week Medicin followed e by 5 mg po qam and q noon from then on. Patient clarified that she had an adverse reaction to Aprodine and not an allergic reaction. nystatin 2022-0 Yes [id number] Take 1 mL [facility] (MYCOSTATIN 8-22 by mouth De[facility] ege ) [id number] 00:00: four times of UNIT/ML 00 daily. Medicin suspension e midodrine 2022-0 Yes 2.5mg Q.5D Take 2.[address] [facility] (PROAMATINE 8-22 [facility] ) 2.5 MG 00:00: mouth 2 Medica l tablet 00 (two) Center times daily Patient stated "I take midodrine 2.5mg by mouth in the am and at noon everyday." . fluconazole 2021-0 2- No 100mg Take 1 [facility] (DIFLUCAN) - 10-13 Tablet by [facility] 100 MG 00:00: 00:00 mouth of tablet 00 :00 daily. Medicin e metoprolol 2021-0 Yes 25mg Q.5D Take [address] tartrate 8-21 by mouth 2 [facility] (LOPRESSOR) 00:00: (two) Medic al 25 MG 00 times Center tablet daily. leflunomide 0 Yes 10mg QD Take [address] [facility] (ARAVA) 10 8-21 by mouth [facility] MG tablet 00:00: daily. Medica l 00 Center baclofen 10 0 Yes 10mg Take 10 mg [facility] mg tablet 8-18 by mouth. ity o f 00:00: [place] [facility] baclofen 10 2021-0 Yes 10mg Take 10 mg [facility] mg tablet 8-18 by mouth. ity o f 00:00: [facility] baclofen 10 2021-0 Yes 10mg Take 10 mg [facility] mg tablet 8-18 by mouth. ity o f 00:00: [facility] baclofen 10 2021-0 Yes 10mg Take 10 mg [facility] mg tablet 8-18 by mouth. ity o f 00:00: [facility] baclofen 10 2021-0 Yes 10mg Take 10 mg [facility] mg tablet 8-18 by mouth. ity o f 00:00: [facility] baclofen 10 2021-0 Yes 10mg Take 10 mg [facility] mg tablet 8-18 by mouth. ity o f 00:00: [facility] baclofen 10 2021-0 Yes 10mg Take 10 mg [facility] mg tablet 8-18 by mouth. ity o f 00:00: [facility] baclofen 10 2021-0 Yes 10mg Take 10 mg [facility] mg tablet 8-18 by mouth. ity o f 00:00: [facility] baclofen 10 2021-0 Yes 10mg Take 10 mg [facility] mg tablet 8-18 by mouth. ity o f 00:00: [facility] baclofen 10 2021-0 Yes 10mg Take 10 mg [facility] mg tablet 8-18 by mouth. ity o f 00:00: [facility] baclofen 10 2021-0 Yes 10mg Take 10 mg [facility] mg tablet 8-18 by mouth. ity o f 00:00: [facility] baclofen 10 2021-0 Yes 10mg Take 10 mg [facility] mg tablet 8-18 by mouth. ity o f 00:00: [facility] baclofen 10 2021-0 Yes 10mg Take 10 mg [facility] mg tablet 8-18 by mouth. ity o f 00:00: [facility] baclofen 10 2021-0 Yes 10mg Take 10 mg [facility] mg tablet 8-18 by mouth. ity o f 00:00: [facility] baclofen 10 2021-0 Yes 10mg Take 10 mg [facility] mg tablet 8-18 by mouth. ity o f 00:00: [facility] baclofen 10 2021-0 Yes 10mg Take 10 mg [facility] mg tablet 8-18 by mouth. ity o f 00:00: [facility] baclofen 10 2021-0 Yes 10mg Take 10 mg [facility] mg tablet 8-18 by mouth. ity o f 00:00: [facility] baclofen 10 2021-0 Yes 10mg Take 10 mg [facility] mg tablet 8-18 by mouth. ity o f 00:00: [facility] baclofen 10 2021-0 Yes 10mg Take 10 mg [facility] mg tablet 8-18 by mouth. ity o f 00:00: [facility] baclofen 10 2021-0 Yes 10mg Take 10 mg [facility] mg tablet 8-18 by mouth. ity o f 00:00: [facility] baclofen 10 2021-0 Yes 10mg Take 10 mg [facility] mg tablet 8-18 by mouth. ity o f 00:00: [facility] baclofen 2021-0 Yes [id number] 10mg Take 1 [place] [facility] (LIORESAL) 8-18 Tablet by [facility] 10 MG 00:00: mouth 3 of tablet 00 times Medicin daily as e needed for Pain. baclofen 2021-0 Yes [id number] 10mg Take 1 [place] [facility] (LIORESAL) 8-18 Tablet by [facility] 10 MG 00:00: mouth 3 of tablet 00 times Medicin daily as e needed for Pain. Fosfomycin 2021-0 Yes [facility] Tromethamin 8-18 College e 3 g PACK 00:00: of 00 Medicin e baclofen 2021-0 Yes [id number] 10mg Take 1 [place] [facility] (LIORESAL) 8-18 Tablet by [facility] 10 MG 00:00: mouth 3 of tablet 00 times Medicin daily as e needed for Pain. Fosfomycin 2021-0 Yes [facility] Tromethamin 8-18 [facility] e 3 g PACK 00:00: of 00 Medicin e baclofen 2021-0 Yes [id number] 10mg Take 1 [place] [facility] (LIORESAL) 8-18 Tablet by [facility] 10 MG 00:00: mouth 3 of tablet 00 times Medicin daily as e needed for Pain. Fosfomycin 2021-0 Yes [facility] Tromethamin 8-18 College e 3 g PACK 00:00: of 00 Medicin e baclofen 2021-0 Yes [id number] 10mg Take 1 [place] [facility] (LIORESAL) 8-18 Tablet by [facility] 10 MG 00:00: mouth 3 of tablet 00 times Medicin daily as e needed for Pain. Fosfomycin 2021-0 Yes [facility] Tromethamin 8-18 College e 3 g PACK 00:00: of 00 Medicin e baclofen 2021-0 2- No [id number] 10mg Take 1 [facility] (LIORESAL) 8-18 10-14 Tablet by [facility] 10 MG 00:00: 00:00 mouth 3 of tablet 00 :00 times Medicin daily as e needed for Pain. Fosfomycin 2021-0 2021- No [facility] Tromethamin 8-18 10-13 College e 3 g PACK 00:00: 00:00 of 00 :00 Medicin e amphetamine 2021-0 Yes [id number] 1{tbl} Take 1 [facility] -dextroamph 8-16 Tablet by Col lege etamine 00:00: mouth of (ADDERALL, 00 daily. In Medi mari 15MG,) 15 the e MG tablet morning amphetamine 2021-0 Yes [id number] 1{tbl} Take 1 [facility] -dextroamph 8-16 Tablet by Col [facility] etamine 00:00: mouth of (ADDERALL, 00 daily. Medicin 5MG,) 5 MG Take in e tablet afternoon amphetamine 2021-0 2- No [id number] 1{tbl} Take 1 [facility] -dextroamph 02-06 Tablet by Co llege etamine 00:00: 00:00 mouth of (ADDERALL, 00 :00 daily. In Medi mari 15MG,) 15 the e MG tablet morning amphetamine 0 2- No [id number] 1{tbl} Take 1 [facility] -dextroamph 02-06 Tablet by Co llege etamine 00:00: 00:00 mouth of (ADDERALL, 00 :00 daily. Medicin 5MG,) 5 MG Take in e tablet afternoon penicillin Yes [facility] v potassium 8-15 [place] (VEETID) 00:00: of 500 MG 00 Medicin tablet e penicillin Yes [facility] v potassium 8-15 [place] (VEETID) 00:00: of 500 MG 00 Medicin tablet e penicillin Yes [facility] v potassium 8-15 [facility] (VEETID) 00:00: of 500 MG 00 Medicin tablet e penicillin Yes [facility] v potassium 8-15 [facility] (VEETID) 00:00: of 500 MG 00 Medicin tablet e penicillin 0 2021- No [facility] v potassium 8-15 13 [facility] (VEETID) 00:00: 00:00 of 500 MG 00 :00 Medicin tablet e fluticasone Yes 1{puff} Inhale 1 [facility] -salmeterol 8-03 Puff by [employer] (ADVAIR) 11:13: mouth of 500-50 01 every 12 Medicin MCG/DOSE hours. e inhaler fluticasone 0 Yes 1{puff} Inhale 1 [facility] -salmeterol 8-03 Puff by [employer] (ADVAIR) 11:13: mouth of 500-50 01 every 12 Medicin MCG/DOSE hours. e inhaler pyridostigm Yes 1/2 tablet [facility] ine 01-22 pot tid x College (MESTINON) 00:00: 1 week of 60 MG 00 then 60 mg Medicin tablet po bid for e 1 week then 60 mg tid metronidazo 0 Yes [facility] le (FLAGYL) 01-22 College 500 MG 00:00: of tablet 00 Medicin e metronidazo 2022-0 Yes [facility] lamberto (FLAGYL) 01-22 [place] 500 MG 00:00: of tablet 00 Medicin e metronidazo 2021-0 Yes [facility] lamberto (FLAGYL) 01-22 [place] 500 MG 00:00: of tablet 00 Medicin e metronidazo 2021-0 Yes [facility] lamberto (FLAGYL) 01-22 [place] 500 MG 00:00: of tablet 00 Medicin e metronidazo 2021-0 Yes [facility] lamberto (FLAGYL) 01-22 [place] 500 MG 00:00: of tablet 00 Medicin e pyridostigm 2021-0 Yes 1/2 tablet [facility] ine 01-22 pot tid x [place] (MESTINON) 00:00: 1 week of 60 MG 00 then 60 mg Medicin tablet po bid for e 1 week then 60 mg tid pyridostigm 2021-0 Yes 1/2 tablet [facility] ine 01-22 pot tid x [place] (MESTINON) 00:00: 1 week of 60 MG 00 then 60 mg Medicin tablet po bid for e 1 week then 60 mg tid metronidazo 2021-0 Yes [facility] lamberto (FLAGYL) 01-22 [place] 500 MG 00:00: of tablet 00 Medicin e pyridostigm 2021-0 Yes 1/2 tablet [facility] ine 01-22 pot tid x [place] (MESTINON) 00:00: 1 week of 60 MG 00 then 60 mg Medicin tablet po bid for e 1 week then 60 mg tid metronidazo 2021-0 2021- No [facility] (FLAGYL) 01-22 [place] 500 MG 00:00: 00:00 of tablet 00 :00 Medicin e pyridostigm 2-0 2022- No 1/2 tablet [facility] ine 01-22 pot tid x [place] (MESTINON) 00:00: 00:00 1 week of 60 MG 00 :00 then 60 mg Medicin tablet po bid for e 1 week then 60 mg tid metronidazo 2-0 2021- No 500mg Take 500 [facility] lamberto (FLAGYL) 01-22 0809 mg by Colleg e 500 MG 00:00: 04:59 mouth. of tablet 00 :00 Medicin e LIALDA 1.2 2021-0 Yes [facility] marc [facility] 730 [place] 00:00: of 00 Medicin e LIALDA 1.2 2021-0 Yes [facility] 730 [place] 00:00: of 00 Medicin e LIALDA 1.2 2021-0 Yes [facility] 730 [place] 00:00: of 00 Medicin e LIALDA 1.2 2021-0 Yes [facility] 730 [place] 00:00: of 00 Medicin e LIALDA 1.2 2021-0 Yes [facility] 730 [place] 00:00: of 00 Medicin e LIALDA 1.2 2021-0 Yes [facility] 01-20 [place] 00:00: of Medicin e LIALDA 1.2 2021-0 Yes [facility] 01-20 [place] 00:00: of 00 Medicin e LIALDA 1.2 2021-0 Yes [facility] 01-20 [place] 00:00: of 00 Medicin e LIALDA 1.2 2021-0 Yes [facility] 01-20 [place] 00:00: of 00 Medicin e LIALDA 1.2 2021-0 Yes [facility] 01-20 [place] 00:00: of 00 Medicin e metoprolol 0 Yes [id number] 25mg Take 1 [facility] (LOPRESSOR) 7-27 Tablet by [facility] 25 MG 00:00: mouth two of tablet 00 times Medicin daily. e metoprolol Yes [id number] 25mg Take 1 [facility] (LOPRESSOR) 7-27 Tablet by [facility] 25 MG 00:00: mouth two of tablet 00 times Medicin daily. e metoprolol 0 Yes [id number] 25mg Take 1 [facility] (LOPRESSOR) 7-27 Tablet by [facility] 25 MG 00:00: mouth two of tablet 00 times Medicin daily. e metoprolol 2021-0 Yes [id number] 25mg Take 1 [facility] (LOPRESSOR) 7-27 Tablet by [facility] 25 MG 00:00: mouth two of tablet 00 times Medicin daily. e metoprolol 2021-0 Yes [id number] 25mg Take 1 [facility] (LOPRESSOR) 7-27 Tablet by [facility] 25 MG 00:00: mouth two of tablet 00 times Medicin daily. e metoprolol 2-0 Yes [id number] 25mg Take 1 [facility] (LOPRESSOR) 7-27 Tablet by [facility] 25 MG 00:00: mouth two of tablet 00 times Medicin daily. e metoprolol 2-0 Yes [id number] 25mg Take 1 [facility] (LOPRESSOR) 7-27 Tablet by [facility] 25 MG 00:00: mouth two of tablet 00 times Medicin daily. e metoprolol 2021-0 Yes [id number] 25mg Take 1 [facility] (LOPRESSOR) 7-27 Tablet by [facility] 25 MG 00:00: mouth two of tablet 00 times Medicin daily. e metoprolol 2021-0 Yes [id number] 25mg Take 1 [facility] (LOPRESSOR) 7-27 Tablet by [facility] 25 MG 00:00: mouth two of tablet 00 times Medicin daily. e metoprolol 2021-0 Yes [id number] 25mg Take 1 [facility] (LOPRESSOR) 7-27 Tablet by [facility] 25 MG 00:00: mouth two of tablet 00 times Medicin daily. e metoprolol 2021-0 Yes [id number] 25mg Take 1 [facility] (LOPRESSOR) 7-27 Tablet by [facility] 25 MG 00:00: mouth two of tablet 00 times Medicin daily. e metoprolol 2021-0 Yes [id number] 25mg Take 1 [facility] (LOPRESSOR) 7-27 Tablet by [facility] 25 MG 00:00: mouth two of tablet 00 times Medicin daily. e triamcinolo 2021-0 Yes [facility] topically. [place] (ARISTOCORT 00:00: of ) 0.5 % 00 Medicin cream e triamcinolo 2021-0 Yes [facility] ne 7-26 [place] (ARISTOCORT 00:00: of ) 0.5 % 00 Medicin cream e triamcinolo 2021-0 Yes Apply [facility] topically. [place] (ARISTOCORT 00:00: of ) 0.5 % 00 Medicin cream e triamcinolo 2-0 Yes [facility] ne 7-26 [place] (ARISTOCORT 00:00: of ) 0.5 % 00 Medicin cream e triamcinolo 2021-0 Yes Apply [facility] topically. [place] (ARISTOCORT 00:00: of ) 0.5 % 00 Medicin cream e triamcinolo 2022-0 Yes [place] [address] [place] [address] (ARISTOCORT 00:00: of ) 0.5 % 00 Medicin cream e triamcinolo 2022-0 Yes Apply [facility] topically. [place] (ARISTOCORT 00:00: of ) 0.5 % 00 Medicin cream e triamcinolo 2022-0 Yes [place] [address] [place] [address] (ARISTOCORT 00:00: of ) 0.5 % 00 Medicin cream e triamcinolo 2-0 Yes Apply [facility] topically. [place] (ARISTOCORT 00:00: of ) 0.5 % 00 Medicin cream e triamcinolo 2022-0 Yes [place] [address] [place] [address] (ARISTOCORT 00:00: of ) 0.5 % 00 Medicin cream e triamcinolo 2-0 Yes Apply [facility] topically. [place] (ARISTOCORT 00:00: of ) 0.5 % 00 Medicin cream e triamcinolo 2022-0 Yes [place] [address] [place] [address] (ARISTOCORT 00:00: of ) 0.5 % 00 Medicin cream e triamcinolo 2-0 Yes Apply [facility] topically. [place] (ARISTOCORT 00:00: of ) 0.5 % 00 Medicin cream e triamcinolo 2022-0 Yes [place] [address] [place] [address] (ARISTOCORT 00:00: of ) 0.5 % 00 Medicin cream e triamcinolo 2022-0 Yes Apply [facility] topically. [place] (ARISTOCORT 00:00: of ) 0.5 % 00 Medicin cream e triamcinolo 2022-[address] (ARISTOCORT 00:00: of ) 0.5 % 00 Medicin cream e triamcinolo 2022-0 Yes Apply [facility] topically. [place] (ARISTOCORT 00:00: of ) 0.5 % 00 Medicin cream e triamcinolo 2022-[address] (ARISTOCORT 00:00: of ) 0.5 % 00 Medicin cream e Baclofen 2-[id number] 10 [facility] 7-26 mg [place] 00:00: vaginally of 00 2 times Medicin daily as e needed. Please compound as vaginal suppositor y Baclofen 2022-[id number] 10 [facility] 7-26 mg [place] 00:00: vaginally of 00 2 times Medicin daily as e needed. Please compound as vaginal suppositor y triamcinolo 2-0 Yes Apply [facility] 01-16 topically. [place] (ARISTOCORT 00:00: of ) 0.5 % 00 Medicin cream e triamcinolo 2-0 Yes [facility] 01-16 [place] (ARISTOCORT 00:00: of ) 0.5 % 00 Medicin cream e Baclofen 2-[id number] 10 [facility] 7-26 mg [place] 00:00: vaginally of 00 2 times Medicin daily as e needed. Please compound as vaginal suppositor y mupirocin 2-0 Yes [id number] Apply to [facility] (BACTROBAN) 01-13 affected [facility] 2 % 00:00: area 2 x a of ointment day Medicin e mupirocin 2022-0 Yes [id number] Apply to [facility] (BACTROBAN) 01-13 affected [facility] 2 % 00:00: area 2 x a of ointment day Medicin e mupirocin 2-0 Yes [id number] Apply to [facility] (BACTROBAN) 01-13 affected [facility] 2 % 00:00: area 2 x a of ointment day Medicin e mupirocin 2022-0 Yes [id number] Apply to [facility] (BACTROBAN) 01-13 affected [facility] 2 % 00:00: area 2 x a of ointment day Medicin e mupirocin 2022-0 Yes [id number] Apply to [facility] (BACTROBAN) 01-13 affected [facility] 2 % 00:00: area 2 x a of ointment 00 day Medicin e mupirocin 2022-0 Yes [id number] Apply to [facility] (BACTROBAN) 01-13 affected [facility] 2 % 00:00: area 2 x a of ointment 00 day Medicin e mupirocin 2022-0 Yes [id number] Apply to [facility] (BACTROBAN) 01-13 affected [facility] 2 % 00:00: area 2 x a of ointment 00 day Medicin e mupirocin 2022-0 Yes [id number] Apply to [facility] (BACTROBAN) 01-13 affected [facility] 2 % 00:00: area 2 x a of ointment 00 day Medicin e mupirocin 2022-0 Yes [id number] Apply to [facility] (BACTROBAN) 01-13 affected [facility] 2 % 00:00: area 2 x a of ointment 00 day Medicin e mupirocin 2022-0 Yes [id number] Apply to [facility] (BACTROBAN) 01-13 affected [facility] 2 % 00:00: area 2 x a of ointment 00 day Medicin e mupirocin 2022-0 Yes [id number] Apply to [facility] (BACTROBAN) 01-13 affected [facility] 2 % 00:00: area 2 x a of ointment 00 day Medicin e mupirocin 2-0 Yes [id number] Apply to [facility] (BACTROBAN) 01-13 affected [facility] 2 % 00:00: area 2 x a of ointment 00 day Medicin e albuterol Yes INHALE ONE [facility] 7-19 TO TWO ity of mcg/actuati 00:00: PUFFS [place] on inhaler 00 MOUTH Medical EVERY 6 Branch HOURS NEEDED FOR WHEEZING albuterol Yes INHALE ONE [facility] 90 7-19 TO TWO ity of mcg/actuati 00:00: PUFFS [place] inhaler 00 MOUTH Medical EVERY 6 Branch HOURS NEEDED FOR WHEEZING albuterol 2021-0 Yes INHALE ONE [facility] 90 7-19 TO TWO ity of mcg/actuati 00:00: PUFFS BY [place] inhaler 00 MOUTH Medical EVERY 6 Branch HOURS NEEDED FOR WHEEZING albuterol Yes INHALE ONE [facility] 90 7-19 TO TWO ity of mcg/actuati 00:00: PUFFS BY [place] inhaler 00 MOUTH Medical EVERY 6 Branch HOURS NEEDED FOR WHEEZING albuterol 2021-0 Yes INHALE ONE [facility] 90 7-19 TO TWO ity of mcg/actuati 00:00: PUFFS [place] inhaler 00 MOUTH Medical EVERY 6 Branch HOURS NEEDED FOR WHEEZING albuterol 2021-0 Yes INHALE ONE [facility] 90 7-19 TO TWO ity of mcg/actuati 00:00: PUFFS BY [place] inhaler 00 MOUTH Medical EVERY 6 Branch HOURS NEEDED FOR WHEEZING albuterol 2021-0 Yes INHALE ONE [facility] 90 7-19 TO TWO ity of mcg/actuati 00:00: PUFFS BY [place] inhaler 00 MOUTH Medical EVERY 6 Branch HOURS NEEDED FOR WHEEZING albuterol 2021-0 Yes INHALE ONE [facility] 90 7-19 TO TWO ity of mcg/actuati 00:00: PUFFS BY [place] inhaler 00 MOUTH Medical EVERY 6 Branch HOURS NEEDED FOR WHEEZING albuterol 2021-0 Yes INHALE ONE [facility] 90 7-19 TO TWO ity of mcg/actuati 00:00: PUFFS BY [place] inhaler 00 MOUTH Medical EVERY 6 Branch HOURS NEEDED FOR WHEEZING albuterol 2021-0 Yes INHALE ONE [facility] 90 7-19 TO TWO ity of mcg/actuati 00:00: PUFFS BY [place] inhaler 00 MOUTH Medical EVERY 6 Branch HOURS NEEDED FOR WHEEZING albuterol 2021-0 Yes INHALE ONE [facility] 90 7-19 TO TWO ity of mcg/actuati 00:00: PUFFS BY [place] inhaler 00 MOUTH Medical EVERY 6 Branch HOURS NEEDED FOR WHEEZING albuterol 2021-0 Yes INHALE ONE [facility] 90 7-19 TO TWO ity of mcg/actuati 00:00: PUFFS BY [place] inhaler 00 MOUTH Medical EVERY 6 Branch HOURS NEEDED FOR WHEEZING albuterol 2021-0 Yes INHALE ONE [facility] 90 7-19 TO TWO ity of mcg/actuati 00:00: PUFFS BY [place] inhaler 00 MOUTH Medical EVERY 6 Branch HOURS NEEDED FOR WHEEZING albuterol 2021-0 Yes INHALE ONE [facility] 90 7-19 TO TWO ity of mcg/actuati 00:00: PUFFS BY [place] inhaler 00 MOUTH Medical EVERY 6 Branch HOURS NEEDED FOR WHEEZING albuterol 0 Yes INHALE ONE [facility] 90 7-19 TO TWO ity of mcg/actuati 00:00: PUFFS BY [place] inhaler 00 MOUTH Medical EVERY 6 Branch HOURS NEEDED FOR WHEEZING albuterol 0 Yes INHALE ONE [facility] 90 7-19 TO TWO ity of mcg/actuati 00:00: PUFFS BY [place] inhaler 00 MOUTH Medical EVERY 6 Branch HOURS NEEDED FOR WHEEZING albuterol 0 Yes INHALE ONE [facility] 90 7-19 TO TWO ity of mcg/actuati 00:00: PUFFS BY [place] inhaler 00 MOUTH Medical EVERY 6 Branch HOURS NEEDED FOR WHEEZING albuterol 0 Yes INHALE ONE [facility] 90 7-19 TO TWO ity of mcg/actuati 00:00: PUFFS BY [place] inhaler 00 MOUTH Medical EVERY 6 Branch HOURS NEEDED FOR WHEEZING albuterol 0 Yes INHALE ONE [facility] 90 7-19 TO TWO ity of mcg/actuati 00:00: PUFFS BY [place] inhaler 00 MOUTH Medical EVERY 6 Branch HOURS NEEDED FOR WHEEZING albuterol 0 Yes INHALE ONE [facility] 90 7-19 TO TWO ity of mcg/actuati 00:00: PUFFS BY [place] inhaler 00 MOUTH Medical EVERY 6 Branch HOURS NEEDED FOR WHEEZING albuterol 0 Yes INHALE ONE [facility] 90 7-19 TO TWO ity of mcg/actuati 00:00: PUFFS BY [place] inhaler 00 MOUTH Medical EVERY 6 Branch HOURS NEEDED FOR WHEEZING Hydrocortis Yes 1{appli Apply 1 [facility] one, 01-09 cation} applicatio [facility], 00:00: n of (ANUSOL-HC) 00 topically Med icin 2.5 % CREA two times e daily. Albuterol 0 Yes [id number] INHALE ONE [facility] Sulfate - 6 TO TWO College (PROAIR 00:00: PUFFS BY of HFA) 108 00 MOUTH Medicin (90 Base) EVERY 6 e MCG/ACT HOURS AERS NEEDED FOR WHEEZING meclizine 2021-0 Yes [id number] 25mg Take 1 [facility] (ANTIVERT) 7-19 Tablet by [facility] 25 MG 00:00: mouth 3 of tablet 00 times Medicin daily as e needed for Dizziness. LamoTRIgine 0 Yes [id number] 1{tbl} Take 1 [facility] 300 MG TB24 7-19 Tablet by Col [facility]ge 00:00: mouth of 00 daily. Medicin e hydrocortis 0 Yes [facility] one 2.5 % 7-19 College cream 00:00: of 00 Medicin e Hydrocortis 0 Yes 1{appli Apply 1 [facility] one, 7-19 cation} applicatio [facility], 00:00: n of (ANUSOL-HC) 00 topically Med icin 2.5 % CREA two times e daily. Albuterol 0 Yes [id number] INHALE ONE [facility] Sulfate 7-19 6 TO TWO College (PROAIR 00:00: PUFFS BY of HFA) 108 00 MOUTH Medicin (90 Base) EVERY 6 e MCG/ACT HOURS AERS NEEDED FOR WHEEZING meclizine 0 Yes [id number] 25mg Take 1 [facility] (ANTIVERT) 7-19 Tablet by [facility] 25 MG 00:00: mouth 3 of tablet 00 times Medicin daily as e needed for Dizziness. hydrocortis 0 Yes [facility] one 2.5 % 7-19 College cream 00:00: of 00 Medicin e Hydrocortis 0 Yes 1{appli Apply 1 [facility] one, 7-19 cation} applicatio [facility], 00:00: n of (ANUSOL-HC) 00 topically Med icin 2.5 % CREA two times e daily. Albuterol 2021-0 Yes [id number] INHALE ONE [facility] Sulfate 7-19 6 TO TWO College (PROAIR 00:00: PUFFS BY of HFA) 108 00 MOUTH Medicin (90 Base) EVERY 6 e MCG/ACT HOURS AERS NEEDED FOR WHEEZING meclizine 2021-0 Yes [id number] 25mg Take 1 [facility] (ANTIVERT) 7-19 Tablet by [facility] 25 MG 00:00: mouth 3 of tablet 00 times Medicin daily as e needed for Dizziness. hydrocortis 2021-0 Yes [facility] one 2.5 % 7-19 College cream 00:00: of 00 Medicin e Hydrocortis 2021-0 Yes 1{appli Apply 1 [facility] one, 7-19 cation} applicatio [facility], 00:00: n of (ANUSOL-HC) 00 topically Med icin 2.5 % CREA two times e daily. Albuterol 2021-0 Yes [id number] INHALE ONE [facility] Sulfate 7-19 6 TO TWO College (PROAIR 00:00: PUFFS BY of HFA) 108 00 MOUTH Medicin (90 Base) EVERY 6 e MCG/ACT HOURS AERS NEEDED FOR WHEEZING meclizine 0 Yes [id number] 25mg Take 1 [facility] (ANTIVERT) 7-19 Tablet by [facility] 25 MG 00:00: mouth 3 of tablet 00 times Medicin daily as e needed for Dizziness. hydrocortis 2021-0 Yes [facility] one 2.5 % 7-19 College cream 00:00: of 00 Medicin e Hydrocortis 0 Yes 1{appli Apply 1 [facility] one, 7-19 cation} applicatio [facility], 00:00: n of (ANUSOL-HC) 00 topically Med icin 2.5 % CREA two times e daily. Albuterol 2021-0 Yes [id number] INHALE ONE [facility] Sulfate 7-19 6 TO TWO [facility] (PROAIR 00:00: PUFFS BY of HFA) 108 00 MOUTH Medicin (90 Base) EVERY 6 e MCG/ACT HOURS AERS NEEDED FOR WHEEZING meclizine 2021-0 Yes [id number] 25mg Take 1 [facility] (ANTIVERT) 7-19 Tablet by [facility] 25 MG 00:00: mouth 3 of tablet 00 times Medicin daily as e needed for Dizziness. hydrocortis 2021-0 Yes [facility] one 2.5 % 7-19 College cream 00:00: of 00 Medicin e Hydrocortis 2021-0 Yes 1{appli Apply 1 [facility] one, 7-19 cation} applicatio [facility], 00:00: n of (ANUSOL-HC) 00 topically Med icin 2.5 % CREA two times e daily. Albuterol 2021-0 Yes [id number] INHALE ONE [facility] Sulfate 7-19 6 TO TWO College (PROAIR 00:00: PUFFS BY of HFA) 108 00 MOUTH Medicin (90 Base) EVERY 6 e MCG/ACT HOURS AERS NEEDED FOR WHEEZING meclizine 2021-0 Yes [id number] 25mg Take 1 [facility] (ANTIVERT) 7-19 Tablet by [facility] 25 MG 00:00: mouth 3 of tablet 00 times Medicin daily as e needed for Dizziness. hydrocortis 2021-0 Yes [facility] one 2.5 % 7-19 College cream 00:00: of 00 Medicin e Hydrocortis 0 Yes 1{appli Apply 1 [facility] one, 7-19 cation} applicatio [facility], 00:00: n of (ANUSOL-HC) 00 topically Med icin 2.5 % CREA two times e daily. Albuterol 2021-0 Yes [id number] INHALE ONE [facility] Sulfate 7-19 6 TO TWO College (PROAIR 00:00: PUFFS BY of HFA) 108 00 MOUTH Medicin (90 Base) EVERY 6 e MCG/ACT HOURS AERS NEEDED FOR WHEEZING meclizine 0 Yes [id number] 25mg Take 1 [facility] (ANTIVERT) 7-19 Tablet by [facility] 25 MG 00:00: mouth 3 of tablet 00 times Medicin daily as e needed for Dizziness. hydrocortis 2021-0 Yes [facility] one 2.5 % 7-19 College cream 00:00: of 00 Medicin e Hydrocortis 2021-0 Yes 1{appli Apply 1 [facility] one, 7-19 cation} applicatio [facility], 00:00: n of (ANUSOL-HC) 00 topically Med icin 2.5 % CREA two times e daily. Albuterol 2021-0 Yes [id number] INHALE ONE [facility] Sulfate 7-19 6 TO TWO College (PROAIR 00:00: PUFFS BY of HFA) 108 00 MOUTH Medicin (90 Base) EVERY 6 e MCG/ACT HOURS AERS NEEDED FOR WHEEZING meclizine 2021-0 Yes [id number] 25mg Take 1 [facility] (ANTIVERT) 7-19 Tablet by [facility] 25 MG 00:00: mouth 3 of tablet 00 times Medicin daily as e needed for Dizziness. hydrocortis 2021-0 Yes [facility] one 2.5 % 7-19 College cream 00:00: of 00 Medicin e Hydrocortis 2021-0 Yes 1{appli Apply 1 [facility] one, 7-19 cation} applicatio [facility], 00:00: n of (ANUSOL-HC) 00 topically Med icin 2.5 % CREA two times e daily. Albuterol 2021-0 Yes [id number] INHALE ONE [facility] Sulfate 7-19 6 TO TWO College (PROAIR 00:00: PUFFS BY of HFA) 108 00 MOUTH Medicin (90 Base) EVERY 6 e MCG/ACT HOURS AERS NEEDED FOR WHEEZING meclizine 2021-0 Yes [id number] 25mg Take 1 [facility] (ANTIVERT) 7-19 Tablet by [facility] 25 MG 00:00: mouth 3 of tablet 00 times Medicin daily as e needed for Dizziness. hydrocortis 2021-0 Yes [facility] one 2.5 % 7-19 College cream 00:00: of 00 Medicin e Hydrocortis 2021-0 Yes 1{appli Apply 1 [facility] one, 7-19 cation} applicatio [facility], 00:00: n of (ANUSOL-HC) 00 topically Med icin 2.5 % CREA two times e daily. Albuterol 2021-0 Yes [id number] INHALE ONE [facility] Sulfate 7-19 6 TO TWO College (PROAIR 00:00: PUFFS BY of HFA) 108 00 MOUTH Medicin (90 Base) EVERY 6 e MCG/ACT HOURS AERS NEEDED FOR WHEEZING meclizine 2021-0 Yes [id number] 25mg Take 1 [facility] (ANTIVERT) 7-19 Tablet by [facility] 25 MG 00:00: mouth 3 of tablet 00 times Medicin daily as e needed for Dizziness. LamoTRIgine 2021-0 Yes [id number] 1{tbl} Take 1 [facility] 300 MG TB24 7-19 Tablet by [facility] 00:00: mouth of 00 daily. Medicin e amphetamine 2022-0 Yes [id number] 1{tbl} Take 1 [facility] -dextroamph 7-19 Tablet by [facility] etamine 00:00: mouth of (ADDERALL, 00 daily. Medicin 15MG,) 15 e MG tablet Hydrocortis 0 Yes 1{appli Apply 1 [facility] one, 7-19 cation} applicatio Colleg e Perianal, 00:00: n of (ANUSOL-HC) 00 topically Med icin 2.5 % CREA two times e daily. Albuterol Yes [id number] INHALE ONE [facility] Sulfate 7-19 6 TO TWO College (PROAIR 00:00: PUFFS BY of HFA) 108 00 MOUTH Medicin (90 Base) EVERY 6 e MCG/ACT HOURS AERS NEEDED FOR WHEEZING meclizine 0 Yes [id number] 25mg Take 1 [facility] (ANTIVERT) 7-19 Tablet by [facility] 25 MG 00:00: mouth 3 of tablet 00 times Medicin daily as e needed for Dizziness. LamoTRIgine 0 Yes [id number] 1{tbl} Take 1 [facility] 300 MG TB24 7-19 Tablet by Col [facility] 00:00: mouth of 00 daily. Medicin e amphetamine Yes [id number] 1{tbl} Take 1 [facility] -dextroamph 7-19 Tablet by Col lege etamine 00:00: mouth of (ADDERALL, 00 daily. Medicin 15MG,) 15 e MG tablet hydrocortis 0 Yes [facility] one 2.5 % 7-19 College cream 00:00: of 00 Medicin e Hydrocortis 0 Yes 1{appli Apply 1 [facility] one, 7-19 cation} applicatio Colleg e Perianal, 00:00: n of (ANUSOL-HC) 00 topically Med icin 2.5 % CREA two times e daily. Albuterol Yes [id number] INHALE ONE [facility] Sulfate 7-19 6 TO TWO [facility] (PROAIR 00:00: PUFFS BY of HFA) 108 00 MOUTH Medicin (90 Base) EVERY 6 e MCG/ACT HOURS AERS NEEDED FOR WHEEZING meclizine 0 Yes [id number] 25mg Take 1 [facility] (ANTIVERT) 7-19 Tablet by [facility] 25 MG 00:00: mouth 3 of tablet 00 times Medicin daily as e needed for Dizziness. LamoTRIgine Yes [id number] 1{tbl} Take 1 [facility] 300 MG TB24 7-19 Tablet by Col [facility]ge 00:00: mouth of 00 daily. Medicin e amphetamine Yes [id number] 1{tbl} Take 1 [facility] -dextroamph 7-19 Tablet by Col lege etamine 00:00: mouth of (ADDERALL, 00 daily. Medicin 15MG,) 15 e MG tablet LamoTRIgine 2021- No [id number] 1{tbl} Take 1 [facility] 300 MG TB24 7-19 09-13 Tablet by Co llege 00:00: 00:00 mouth of 00 :00 daily. Medicin e fluticasone Yes [id number] 2{spray 2 Sprays [facility] (FLONASE) 7-14 } by Each [place] 50 MCG/ACT 00:00: Nostril of nasal spray 00 route two Med icin times e daily. fluticasone Yes [id number] 2{spray 2 Sprays [facility] (FLONASE) 7-14 } by Each [place] 50 MCG/ACT 00:00: Nostril of nasal spray 00 route two Med icin times e daily. fluticasone Yes [id number] 2{spray 2 Sprays [facility] (FLONASE) 7-14 } by Each [place] 50 MCG/ACT 00:00: Nostril of nasal spray 00 route two Med icin times e daily. fluticasone Yes [id number] 2{spray 2 Sprays [facility] (FLONASE) 7-14 } by Each [facility] 50 MCG/ACT 00:00: Nostril of nasal spray 00 route two Med icin times e daily. fluticasone Yes [id number] 2{spray 2 Sprays [facility] (FLONASE) 7-14 } by Each [facility] 50 MCG/ACT 00:00: Nostril of nasal spray 00 route two Med icin times e daily. fluticasone Yes [id number] 2{spray 2 Sprays [facility] (FLONASE) 7-14 } by Each [place] 50 MCG/ACT 00:00: Nostril of nasal spray 00 route two Med icin times e daily. fluticasone 2021-0 Yes [id number] 2{spray 2 Sprays [facility] (FLONASE) 7-14 } by Each [place] 50 MCG/ACT 00:00: Nostril of nasal spray 00 route two Med icin times e daily. fluticasone 0 Yes [id number] 2{spray 2 Sprays [facility] (FLONASE) 7-14 } by Each [place] 50 MCG/ACT 00:00: Nostril of nasal spray 00 route two Med icin times e daily. fluticasone Yes [id number] 2{spray 2 Sprays [facility] (FLONASE) 7-14 } by Each [place] 50 MCG/ACT 00:00: Nostril of nasal spray 00 route two Med icin times e daily. fluticasone Yes [id number] 2{spray 2 Sprays [facility] (FLONASE) 7-14 } by Each [place] 50 MCG/ACT 00:00: Nostril of nasal spray 00 route two Med icin times e daily. fluticasone Yes [id number] 2{spray 2 Sprays [facility] (FLONASE) 7-14 } by Each [place] 50 MCG/ACT 00:00: Nostril of nasal spray 00 route two Med icin times e daily. fluticasone Yes [id number] 2{spray 2 Sprays [facility] (FLONASE) 7-14 } by Each [place] 50 MCG/ACT 00:00: Nostril of nasal spray 00 route two Med icin times e daily. fluconazole 0 Yes [id number] Take 1 [facility] (DIFLUCAN) 12-28 tablet [place] 150 MG 00:00: every 72 of tablet 00 hours for Medicin three e doses, followed by maintenanc e fluconazol e therapy once per week for six months. fluconazole 2021-0 Yes [id number] Take 1 [facility] (DIFLUCAN) 7-07 tablet [place] 150 MG 00:00: every 72 of tablet 00 hours for Medicin three e doses, followed by maintenanc e fluconazol e therapy once per week for six months. fluconazole 2022-0 Yes [id number] Take 1 [facility] (DIFLUCAN) 7-07 tablet [facility] 150 MG 00:00: every 72 of tablet 00 hours for Medicin three e doses, followed by maintenanc e fluconazol e therapy once per week for six months. fluticasone 2022-0 Yes 1{puff} Inhale 1 [facility] -salmeterol 7-05 Puff by [facility] (ADVAIR) 15:47: mouth of 500-50 21 every 12 Medicin MCG/DOSE hours. e inhaler folic acid 2022-0 Yes 1mg Take 1 [facility] (FOLVITE) 1 6-28 Tablet by Col lege MG tablet 00:00: mouth of 00 daily. Medicin e leflunomide 2022-0 Yes 10mg Take 1 [facility] (ARAVA) 10 6-28 Tablet by [facility] MG tablet 00:00: mouth of 00 daily. Medicin e folic acid 2022-0 Yes 1mg Take 1 [facility] (FOLVITE) 1 6-28 Tablet by Col [facility]ge MG tablet 00:00: mouth of 00 daily. Medicin e leflunomide 2022-0 Yes 10mg Take 1 [facility] (ARAVA) 10 6-28 Tablet by [facility] MG tablet 00:00: mouth of 00 daily. Medicin e folic acid 2022-0 Yes 1mg Take 1 [facility] (FOLVITE) 1 6-28 Tablet by Col [facility]ge MG tablet 00:00: mouth of 00 daily. Medicin e leflunomide 2022-0 Yes 10mg Take 1 [facility] (ARAVA) 10 6-28 Tablet by [facility] e[facility] MG tablet 00:00: mouth of 00 daily. Medicin e folic acid 2022-0 Yes 1mg Take 1 [facility] (FOLVITE) 1 6-28 Tablet by Col lege MG tablet 00:00: mouth of 00 daily. Medicin e leflunomide 2022-0 Yes 10mg Take 1 [facility] (ARAVA) 10 6-28 Tablet by [facility] e[facility] MG tablet 00:00: mouth of 00 daily. Medicin e folic acid 2022-0 Yes 1mg Take 1 [facility] (FOLVITE) 1 6-28 Tablet by Col lege MG tablet 00:00: mouth of 00 daily. Medicin e leflunomide 2022-0 Yes 10mg Take 1 [facility] (ARAVA) 10 6-28 Tablet by [facility] e[facility] MG tablet 00:00: mouth of 00 daily. Medicin e folic acid 2022-0 Yes 1mg Take 1 [facility] (FOLVITE) 1 6-28 Tablet by Col lege MG tablet 00:00: mouth of 00 daily. Medicin e leflunomide 2022-0 Yes 10mg Take 1 [facility] (ARAVA) 10 6-28 Tablet by [facility] e[facility] MG tablet 00:00: mouth of 00 daily. Medicin e folic acid 2022-0 Yes 1mg Take 1 [facility] (FOLVITE) 1 6-28 Tablet by Col lege MG tablet 00:00: mouth of 00 daily. Medicin e leflunomide 2022-0 Yes 10mg Take 1 [facility] (ARAVA) 10 6-28 Tablet by [facility] e[facility] MG tablet 00:00: mouth of 00 daily. Medicin e folic acid 2022-0 Yes 1mg Take 1 [facility] (FOLVITE) 1 6-28 Tablet by Col lege MG tablet 00:00: mouth of 00 daily. Medicin e leflunomide 2022-0 Yes 10mg Take 1 [facility] (ARAVA) 10 6-28 Tablet by [facility] e[facility] MG tablet 00:00: mouth of 00 daily. Medicin e folic acid 2022-0 Yes 1mg Take 1 [facility] (FOLVITE) 1 6-28 Tablet by Col lege MG tablet 00:00: mouth of 00 daily. Medicin e leflunomide 2022-0 Yes 10mg Take 1 [facility] (ARAVA) 10 6-28 Tablet by [facility] e[facility] MG tablet 00:00: mouth of 00 daily. Medicin e folic acid 2022-0 Yes 1mg Take 1 [facility] (FOLVITE) 1 6-28 Tablet by Col lege MG tablet 00:00: mouth of 00 daily. Medicin e leflunomide 2022-0 Yes 10mg Take 1 [facility] (ARAVA) 10 6-28 Tablet by [facility] e[facility] MG tablet 00:00: mouth of 00 daily. Medicin e folic acid 2022-0 Yes 1mg Take 1 [facility] (FOLVITE) 1 6-28 Tablet by Col lege MG tablet 00:00: mouth of 00 daily. Medicin e leflunomide Yes 10mg Take 1 [facility] (ARAVA) 10 6-28 Tablet by [facility] e[facility] MG tablet 00:00: mouth of 00 daily. Medicin e folic acid Yes 1mg Take 1 [facility] (FOLVITE) 1 6-28 Tablet by Col lege MG tablet 00:00: mouth of 00 daily. Medicin e leflunomide Yes 10mg Take 1 [facility] (ARAVA) 10 6-28 Tablet by [facility] e[facility] MG tablet 00:00: mouth of 00 daily. Medicin e fluticasone Yes 1{puff} Inhale 1 [facility] -salmeterol 6-02 Puff by Colle ge (ADVAIR) 13:13: mouth of 500-50 10 every 12 Medicin MCG/DOSE hours. e inhaler propranolol Yes [id number] 20mg Take 1 [facility] (INDERAL) 6-02 Tablet by Colle ge 20 MG 00:00: mouth 3 of tablet 00 times Medicin daily. e fluconazole Yes [id number] Take one [facility] (DIFLUCAN) - tab po [facility] 150 MG 00:00: now. And of tablet 00 one more Medicin tab po e after antibiotic course. For vaginal yeast infection vancomycin 2021- No [id number] 125mg Take 1 [facility] (VANCOCIN) 5-31 06-08 capsule by Co llege 125 MG 00:00: 04:59 mouth 3 of capsule 00 :00 times Medicin daily for e 7 days. For urine infection trazodone Yes [id number] 100mg Take 1 [facility] (DESYREL) 5-18 Tablet by Colle ge 100 MG 00:00: mouth of tablet 00 nightly. Medicin e LamoTRIgine Yes [id number] 1{tbl} Take 1 [facility] (LAMICTAL 5-18 Tablet by Colle ge XR) 250 MG 00:00: mouth of TB24 00 daily. Medicin e amphetamine Yes [id number] 1{tbl} Take 1 [facility] -dextroamph 5-18 Tablet by Col lege etamine 00:00: mouth of (ADDERALL, 00 daily. Medicin 5MG,) 5 MG e tablet trazodone 2021-0 Yes [id number] 100mg Take 1 [facility] (DESYREL) 5-18 Tablet by Colle ge 100 MG 00:00: mouth of tablet 00 nightly. Medicin e trazodone 2021-0 Yes [id number] 100mg Take 1 [facility] (DESYREL) 5-18 Tablet by Colle ge 100 MG 00:00: mouth of tablet 00 nightly. Medicin e trazodone 2021-0 Yes [id number] 100mg Take 1 [facility] (DESYREL) 5-18 Tablet by Colle ge 100 MG 00:00: mouth of tablet 00 nightly. Medicin e trazodone 2021-0 Yes [id number] 100mg Take 1 [facility] (DESYREL) 5-18 Tablet by Colle ge 100 MG 00:00: mouth of tablet 00 nightly. Medicin e trazodone 2021-0 2- No [id number] 100mg Take 1 [facility] (DESYREL) 5-18 09-13 Tablet by [facility] 100 MG 00:00: 00:00 mouth of tablet 00 :00 nightly. Medicin e Dexlansopra 2021-0 Yes Take 60mg [facility] zole 60 MG 5-13 PO daily Colle ge CPDR 00:00: of 00 Medicin e hydrOXYzine 2021-0 Yes [id number] 25mg Take 1 [facility] (ATARAX) 25 5-12 Tablet by Col lege MG tablet 00:00: mouth 3 of 00 times Medicin daily as e needed for Itching. Dexlansopra 2021-0 Yes 60mg Take 60 mg [facility] zole 5-12 by mouth [place] (DEXILANT) 00:00: daily. of 60 MG CPDR 00 Medicin e triamcinolo 2021-0 Yes [id number] Apply to [facility] ne 5-12 the [place] (KENALOG) 00:00: lesions 2 of 0.1 % cream 00 times Medicin daily e hydrOXYzine 2-0 Yes [id number] 25mg Take 1 [facility] (ATARAX) 25 5-12 Tablet by Col lege MG tablet 00:00: mouth 3 of 00 times Medicin daily as e needed for Itching. hydrOXYzine 2021-0 Yes [id number] 25mg Take 1 [facility] (ATARAX) 25 5-12 Tablet by Col lege MG tablet 00:00: mouth 3 of 00 times Medicin daily as e needed for Itching. hydrOXYzine 2021-0 Yes [id number] 25mg Take 1 [facility] (ATARAX) 25 5-12 Tablet by Col lege MG tablet 00:00: mouth 3 of 00 times Medicin daily as e needed for Itching. hydrOXYzine 2021-0 Yes [id number] 25mg Take 1 [facility] (ATARAX) 25 5-12 Tablet by Col lege MG tablet 00:00: mouth 3 of 00 times Medicin daily as e needed for Itching. hydrOXYzine 2021-0 2021- No [id number] 25mg Take 1 [facility] (ATARAX) 25 5-12 09-13 Tablet by Co llege MG tablet 00:00: 00:00 mouth 3 of 00 :00 times Medicin daily as e needed for Itching. Spacer/Aero 2021-0 Yes [id number] Or any [place] [id number] other [facility] 00:00: covered of (BREATHERIT 00 spacer Medici n E DEANGELO compatible e SPACER with pt's ADULT) MISC inhalers. Spacer/Aero 2021-0 Yes [id number] Or any [address] 00:00: covered of (BREATHERIT 00 spacer Medici n E DEANGELO compatible e SPACER with pt's ADULT) MISC inhalers. Spacer/Aero 2021-0 Yes [id number] Or any [address] 00:00: covered of (BREATHERIT 00 spacer Medici n E DEANGELO compatible e SPACER with pt's ADULT) MISC inhalers. Spacer/Aero 2021-0 Yes [id number] Or any [address] 00:00: covered of (BREATHERIT 00 spacer Medici n E DEANGELO compatible e SPACER with pt's ADULT) MISC inhalers. Spacer/Aero 2021-0 Yes [id number] Or any [address] 00:00: covered of (BREATHERIT 00 spacer Medici n E DEANGELO compatible e SPACER with pt's ADULT) MISC inhalers. Spacer/Aero 2021-0 Yes [id number] Or any [address] 00:00: covered of (BREATHERIT 00 spacer Medici n E DEANGELO compatible e SPACER with pt's ADULT) MISC inhalers. Spacer/Aero 2021-0 Yes [id number] Or any [address] 00:00: covered of (BREATHERIT 00 spacer Medici n E DEANGELO compatible e SPACER with pt's ADULT) MISC inhalers. Spacer/Aero 2021-0 Yes [id number] Or any [address] 00:00: covered of (BREATHERIT 00 spacer Medici n E DEANGELO compatible e SPACER with pt's ADULT) MISC inhalers. Spacer/Aero 2021-0 Yes [id number] Or any [address] 00:00: covered of (BREATHERIT 00 spacer Medici n E DEANGELO compatible e SPACER with pt's ADULT) MISC inhalers. Spacer/Aero 2021-0 Yes [id number] Or any [address] 00:00: covered of (BREATHERIT 00 spacer Medici n E DEANGELO compatible e SPACER with pt's ADULT) MISC inhalers. Spacer/Aero 2021-0 Yes [id number] Or any [address] 00:00: covered of (BREATHERIT 00 spacer Medici n E DEANGELO compatible e SPACER with pt's ADULT) MISC inhalers. Spacer/Aero 2021-0 Yes [id number] Or any [address] 00:00: covered of (BREATHERIT 00 spacer Medici n E DEANGELO compatible e SPACER with pt's ADULT) MISC inhalers. Spacer/Aero 2021-0 Yes [id number] Or any [address] 00:00: covered of (BREATHERIT 00 spacer Medici n E DEANGELO compatible e SPACER with pt's ADULT) MISC inhalers. dicyclomine 2021-0 2021- No 20mg Take [address] [facility] (BENTYL) 20 10-03 04-22 tablet (20 [facility] mg tablet 00:00: 23:59 mg total) Me dical 00 :00 by mouth 2 Center (two) times daily as needed (abdominal cramping) for up to 10 days. ondansetron 2- No 4mg Take [address] [facility] (ZOFRAN) 4 4-12 04-19 tablet (4 Ad[facility] es MG tablet 00:00: 23:59 mg total) Me dical 00 :00 by mouth Center every 6 (six) hours for 7 days. ondansetron 0 Yes [id number] 8mg Take 1 [facility] (ZOFRAN-ODT 4-11 Tablet by Col lege ) 8 mg 00:00: mouth of disintegrat 00 every 8 Medic in ing tablet hours as e needed for Nausea. ondansetron 0 Yes [id number] 8mg Take 1 [facility] (ZOFRAN-ODT 4-11 Tablet by Col lege ) 8 mg 00:00: mouth of disintegrat 00 every 8 Medic in ing tablet hours as e needed for Nausea. ondansetron 0 Yes [id number] 8mg Take 1 [facility] (ZOFRAN-ODT 4-11 Tablet by Col lege ) 8 mg 00:00: mouth of disintegrat 00 every 8 Medic in ing tablet hours as e needed for Nausea. ondansetron 0 Yes [id number] 8mg Take 1 [facility] (ZOFRAN-ODT 4-11 Tablet by Col lege ) 8 mg 00:00: mouth of disintegrat 00 every 8 Medic in ing tablet hours as e needed for Nausea. ondansetron 0 Yes [id number] 8mg Take 1 [facility] (ZOFRAN-ODT 4-11 Tablet by Col lege ) 8 mg 00:00: mouth of disintegrat 00 every 8 Medic in ing tablet hours as e needed for Nausea. ondansetron 0 Yes [id number] 8mg Take 1 [facility] (ZOFRAN-ODT 4-11 Tablet by Col lege ) 8 mg 00:00: mouth of disintegrat 00 every 8 Medic in ing tablet hours as e needed for Nausea. ondansetron 2021-0 Yes [id number] 8mg Take 1 [facility] (ZOFRAN-ODT 4-11 Tablet by Col lege ) 8 mg 00:00: mouth of disintegrat 00 every 8 Medic in ing tablet hours as e needed for Nausea. ondansetron 2022-0 Yes [id number] 8mg Take 1 [facility] (ZOFRAN-ODT 4-11 Tablet by Col lege ) 8 mg 00:00: mouth of disintegrat 00 every 8 Medic in ing tablet hours as e needed for Nausea. ondansetron 2-0 Yes [id number] 8mg Take 1 [facility] (ZOFRAN-ODT 4-11 Tablet by Col lege ) 8 mg 00:00: mouth of disintegrat 00 every 8 Medic in ing tablet hours as e needed for Nausea. ondansetron 2022-0 Yes [id number] 8mg Take 1 [facility] (ZOFRAN-ODT 4-11 Tablet by Col lege ) 8 mg 00:00: mouth of disintegrat 00 every 8 Medic in ing tablet hours as e needed for Nausea. ondansetron 2-0 Yes [id number] 8mg Take 1 [facility] (ZOFRAN-ODT 4-11 Tablet by Col lege ) 8 mg 00:00: mouth of disintegrat 00 every 8 Medic in ing tablet hours as e needed for Nausea. ondansetron 2-0 Yes [id number] 8mg Take 1 [facility] (ZOFRAN-ODT 4-11 Tablet by Col lege ) 8 mg 00:00: mouth of disintegrat 00 every 8 Medic in ing tablet hours as e needed for Nausea. ondansetron 2-0 Yes [id number] 8mg Take 1 [facility] (ZOFRAN-ODT 4-11 Tablet by Col lege ) 8 mg 00:00: mouth of disintegrat 00 every 8 Medic in ing tablet hours as e needed for Nausea. gabapentin 2022-0 Yes 800mg Take 1 [facility] (NEURONTIN) 4-07 Tablet by Col lege 800 MG 00:00: mouth 3 of tablet 00 times Medicin daily. e gabapentin 2022-0 Yes 800mg Take 1 [facility] (NEURONTIN) 4-07 Tablet by Col lege 800 MG 00:00: mouth 3 of tablet 00 times Medicin daily. e gabapentin 2022-0 Yes 800mg Take 1 [facility] (NEURONTIN) 4-07 Tablet by Col lege 800 MG 00:00: mouth 3 of tablet 00 times Medicin daily. e gabapentin 2022-0 Yes 800mg Take 1 [facility] (NEURONTIN) 4-07 Tablet by Col lege 800 MG 00:00: mouth 3 of tablet 00 times Medicin daily. e gabapentin 2022-0 Yes 800mg Take 1 [facility] (NEURONTIN) 4-07 Tablet by Col lege 800 MG 00:00: mouth 3 of tablet 00 times Medicin daily. e gabapentin 2022-0 Yes 800mg Take 1 [facility] (NEURONTIN) 4-07 Tablet by Col lege 800 MG 00:00: mouth 3 of tablet 00 times Medicin daily. e gabapentin 2022-0 Yes 800mg Take 1 [facility] (NEURONTIN) 4-07 Tablet by Col lege 800 MG 00:00: mouth 3 of tablet 00 times Medicin daily. e gabapentin 2-0 Yes 800mg Take 1 [facility] (NEURONTIN) 4-07 Tablet by Col lege 800 MG 00:00: mouth 3 of tablet 00 times Medicin daily. e gabapentin 2021-0 Yes 800mg Take 1 [facility] (NEURONTIN) 4-07 Tablet by Col lege 800 MG 00:00: mouth 3 of tablet 00 times Medicin daily. e gabapentin 2021-0 2022- No 800mg Take 1 [place] [facility] (NEURONTIN) 4-07 10-13 Tablet by Co llege 800 MG 00:00: 00:00 mouth 3 of tablet 00 :00 times Medicin daily. e gabapentin 2-0 2022- No 1{tbl} Take 1 [facility] 800 mg 4-07 10-11 tablet by ity of tablet 00:00: 00:00 mouth in [place] 00 :00 the [facility] morning Branch and 1 tablet at noon and 1 tablet in the evening. gabapentin 2021-0 2022- No 1{tbl} Take 1 [facility] 800 mg 4-07 10-11 tablet by ity of tablet 00:00: 00:00 mouth in [place] 00 :00 the [facility] morning Branch and 1 tablet at noon and 1 tablet in the evening. fluticasone 2021-0 Yes 1{puff} Inhale 1 [facility] -salmeterol 3-18 Puff by [facility] (ADVAIR 14:16: mouth of DISKUS) 42 every 12 Medicin 500-50 hours. e MCG/DOSE inhaler trazodone 2021-0 Yes 100mg Take 100 [place] [facility] (DESYREL) 3-18 mg by [place] 100 MG 13:44: mouth of tablet 26 nightly. Medicin e lamotrigine 2-0 Yes 100mg Take 100 [facility] (LAMICTAL) 3-18 mg by [place] 25 MG 13:44: mouth. of tablet 26 Medicin e azelastine- 2022-0 Yes SPRAY ONE U nivers fluticasone 3-17 SPRAY IN ity of 137-50 00:00: EACH [place] mcg/spray 00 NOSTRIL Medical nasal spray TWICE Branch DAILY NEEDED azelastine- 2022-0 Yes SPRAY ONE U nivers fluticasone 3-17 SPRAY IN ity of 137-50 00:00: EACH [place] mcg/spray 00 NOSTRIL Medical nasal spray TWICE Branch DAILY NEEDED azelastine- 2022-0 Yes SPRAY ONE U nivers fluticasone 3-17 SPRAY IN ity of 137-50 00:00: EACH [place] mcg/spray 00 NOSTRIL Medical nasal spray TWICE Branch DAILY NEEDED azelastine- 2-0 Yes SPRAY ONE U n[facility] fluticasone 3-17 SPRAY IN ity of 137-50 00:00: EACH [place] mcg/spray 00 NOSTRIL Medical nasal spray TWICE Branch DAILY NEEDED azelastine- 2-0 Yes SPRAY ONE U n[facility] fluticasone 3-17 SPRAY IN ity of 137-50 00:00: EACH [place] mcg/spray 00 NOSTRIL Medical nasal spray TWICE Branch DAILY NEEDED azelastine- 2022-0 Yes SPRAY ONE U n[facility] fluticasone 3-17 SPRAY IN ity of 137-50 00:00: EACH [place] mcg/spray 00 NOSTRIL Medical nasal spray TWICE Branch DAILY NEEDED azelastine- 2022-0 Yes SPRAY ONE [facility] fluticasone 3-17 SPRAY IN ity of 137-50 00:00: EACH [place] mcg/spray 00 NOSTRIL Medical nasal spray TWICE Branch DAILY NEEDED azelastine- 2-0 Yes SPRAY ONE U nivers fluticasone 3-17 SPRAY IN ity of 137-50 00:00: EACH [place] mcg/spray 00 NOSTRIL Medical nasal spray TWICE Branch DAILY NEEDED azelastine- 2022-0 Yes SPRAY ONE U nivers fluticasone 3-17 SPRAY IN ity of 137-50 00:00: EACH [place] mcg/spray 00 NOSTRIL Medical nasal spray TWICE Branch DAILY NEEDED azelastine- 2022-0 Yes SPRAY ONE U [facility] fluticasone 3-17 SPRAY IN ity of 137-50 00:00: EACH [place] mcg/spray 00 NOSTRIL Medical nasal spray TWICE Branch DAILY NEEDED azelastine- 2022-0 Yes SPRAY ONE U n[facility] fluticasone 3-17 SPRAY IN ity of [address] 00:00: EACH [place] mcg/spray 00 NOSTRIL Medical nasal spray TWICE Branch DAILY NEEDED azelastine- 2022-0 Yes SPRAY ONE U nivers fluticasone 3-17 SPRAY IN ity of 137-50 00:00: EACH [place] mcg/spray 00 NOSTRIL Medical nasal spray TWICE Branch DAILY NEEDED azelastine- 2022-0 Yes SPRAY ONE U [facility] fluticasone 3-17 SPRAY IN ity of [address] 00:00: EACH [place] mcg/spray 00 NOSTRIL Medical nasal spray TWICE Branch DAILY NEEDED azelastine- 2022-0 Yes SPRAY ONE [facility] fluticasone 3-17 SPRAY IN ity of [address] 00:00: EACH [place] mcg/spray 00 NOSTRIL Medical nasal spray TWICE Branch DAILY NEEDED azelastine- 2022-0 Yes SPRAY ONE [facility] fluticasone 3-17 SPRAY IN ity of [address] 00:00: EACH [place] mcg/spray 00 NOSTRIL Medical nasal spray TWICE Branch DAILY NEEDED azelastine- 2022-0 Yes SPRAY ONE [facility] fluticasone 3-17 SPRAY IN ity of [address] 00:00: EACH [place] mcg/spray 00 NOSTRIL Medical nasal spray TWICE Branch DAILY NEEDED azelastine- 2022-0 Yes SPRAY ONE [facility] fluticasone 3-17 SPRAY IN ity of 137-50 00:00: EACH [place] mcg/spray 00 NOSTRIL Medical nasal spray TWICE Branch DAILY NEEDED azelastine- 2022-0 Yes SPRAY ONE [facility] fluticasone 3-17 SPRAY IN ity of 137-50 00:00: EACH [place] mcg/spray 00 NOSTRIL Medical nasal spray TWICE Branch DAILY NEEDED azelastine- 2022-0 Yes SPRAY ONE [facility] fluticasone 3-17 SPRAY IN ity of [address] 00:00: EACH [place] mcg/spray 00 NOSTRIL Medical nasal spray TWICE Branch DAILY NEEDED azelastine- 2-0 Yes SPRAY ONE [facility] fluticasone 3-17 SPRAY IN [facility]y of [facility] 00:00: EACH [place] mcg/spray 00 NOSTRIL Medical nasal spray TWICE Branch DAILY NEEDED azelastine- 2022-0 Yes SPRAY ONE [facility] fluticasone 3-17 SPRAY IN ity of [address] 00:00: EACH [place] mcg/spray 00 NOSTRIL Medical nasal spray TWICE Branch DAILY NEEDED Azelastine- 2022-0 Yes [id number] SPRAY ONE [facility] Fluticasone 3-17 6 SPRAY IN [place] [address] 00:00: EACH of MCG/ACT 00 NOSTRIL Medicin SUSP TWICE e DAILY NEEDED Azelastine- 2022-0 Yes [id number] SPRAY ONE [facility] Fluticasone 3-17 6 SPRAY IN [place] [address] 00:00: EACH of MCG/ACT 00 NOSTRIL Medicin SUSP TWICE e DAILY NEEDED Azelastine- 2022-0 Yes [id number] SPRAY ONE [facility] Fluticasone 3-17 6 SPRAY IN [place] [address] 00:00: EACH of MCG/ACT 00 NOSTRIL Medicin SUSP TWICE e DAILY NEEDED Azelastine- 2022-0 Yes [id number] SPRAY ONE [facility] Fluticasone 3-17 6 SPRAY IN [place] [address] 00:00: EACH of MCG/ACT 00 NOSTRIL Medicin SUSP TWICE e DAILY NEEDED Azelastine- 2022-0 Yes [id number] SPRAY ONE [facility] Fluticasone 3-17 6 SPRAY IN [facility] 00:00: EACH of MCG/ACT 00 NOSTRIL Medicin SUSP TWICE e DAILY NEEDED Azelastine- 2022-0 Yes [id number] SPRAY ONE [facility] Fluticasone 3-17 6 SPRAY IN [place] [address] 00:00: EACH of MCG/ACT 00 NOSTRIL Medicin SUSP TWICE e DAILY NEEDED Azelastine- 2022-0 Yes [id number] SPRAY ONE [facility] Fluticasone 3-17 6 SPRAY IN [place] 137-50 00:00: EACH of MCG/ACT 00 NOSTRIL Medicin SUSP TWICE e DAILY NEEDED Azelastine- 2021-0 Yes [id number] SPRAY ONE [facility] Fluticasone 3-17 6 SPRAY IN [facility] [facility] 00:00: EACH of MCG/ACT 00 NOSTRIL Medicin SUSP TWICE e DAILY NEEDED Azelastine- 2021-0 Yes [id number] SPRAY ONE [facility] Fluticasone 3-17 6 SPRAY IN [facility] 00:00: EACH of MCG/ACT 00 NOSTRIL Medicin SUSP TWICE e DAILY NEEDED Albuterol 2021-0 Yes [id number] INHALE ONE [facility] Sulfate 3-17 6 TO TWO [employer] (PROAIR 00:00: PUFFS BY of HFA) 108 00 MOUTH Medicin (90 Base) EVERY 6 e MCG/ACT HOURS AERS NEEDED FOR WHEEZING fluconazole 2021-0 Yes [id number] 150mg Take 1 [facility] (DIFLUCAN) 3-17 Tablet by [facility] 150 MG 00:00: mouth of tablet 00 daily. Medicin e Azelastine- 2021-0 Yes [id number] SPRAY ONE [facility] Fluticasone 3-17 6 SPRAY IN [facility] 00:00: EACH of MCG/ACT 00 NOSTRIL Medicin SUSP TWICE e DAILY NEEDED Albuterol 2021-0 Yes [id number] INHALE ONE [facility] Sulfate 3-17 6 TO TWO [place] (PROAIR 00:00: PUFFS BY of HFA) 108 00 MOUTH Medicin (90 Base) EVERY 6 e MCG/ACT HOURS AERS NEEDED FOR WHEEZING Azelastine- 2021-0 Yes [id number] SPRAY ONE [facility] Fluticasone 3-17 6 SPRAY IN [facility] [address] 00:00: EACH of MCG/ACT 00 NOSTRIL Medicin SUSP TWICE e DAILY NEEDED Azelastine- 2021-0 Yes [id number] SPRAY ONE [facility] Fluticasone 3-17 6 SPRAY IN [facility] 00:00: EACH of MCG/ACT 00 NOSTRIL Medicin SUSP TWICE e DAILY NEEDED Azelastine- 2-0 Yes [id number] SPRAY ONE [facility] Fluticasone 3-17 6 SPRAY IN [facility] 00:00: EACH of MCG/ACT 00 NOSTRIL Medicin SUSP TWICE e DAILY NEEDED Azelastine- 2021- No [id number] SPRAY ONE [facility] Fluticasone 3-17 11-08 6 SPRAY IN [facility] 137-50 00:00: 00:00 EACH of MCG/ACT 00 :00 NOSTRIL Medicin SUSP TWICE e DAILY NEEDED benzonatate 2021- No [id number] 100mg Take 1 [facility] (TESSALON 3-17 03-28 capsule by [facility] joan TORRES) 100 00:00: 04:59 mouth 3 of mg capsule 00 :00 times Medicin daily as e needed for Cough for up to 10 days. ondansetron Yes [id number] 8mg Take 1 [facility] (ZOFRAN-ODT 3-09 Tablet by [facility] joan ) 8 mg 00:00: mouth of disintegrat 00 every 8 Medic in ing tablet hours as e needed for Nausea. meclizine Yes [id number] 25mg Take 1 [facility] (ANTIVERT) 3-09 Tablet by [facility] 25 MG 00:00: mouth 3 of tablet 00 times Medicin daily as e needed for Dizziness. meclizine 0 Yes [id number] 25mg Take 1 [facility] (ANTIVERT) 3-09 Tablet by [facility] 25 MG 00:00: mouth 3 of tablet 00 times Medicin daily as e needed for Dizziness. azithromyci 0 Yes [id number] Take as [facility] n 3-07 [facility] (ZITHROMAX) 00:00: on package of 250 MG 00 labeling. Medicin tablet Two pills e by mouth for the first day and then 1 pill daily until done. propranolol Yes 5 mg bid x [facility] (INDERAL) 3- 5 days [facility] 10 MG 00:00: then 10 mg of tablet 00 bid Medicin e propranolol 2021-0 2021- No 5 mg bid x [facility] (INDERAL) 08-22-02 5 days [facility] 10 MG 00:00: 00:00 then 10 mg of tablet 00 :00 bid Medicin e Sodium 2021-0 Yes Use as [facility] Sulfate-Mag 2 directed [facility] reji Sulfate-KCl 00:00: of (SUTAB) 00 Medicin [id number] e 8 MG TABS Sodium 2021-0 Yes Use as [facility] Sulfate-Mag 2-22 directed [facility] Sulfate-KCl 00:00: of (SUTAB) 00 Medicin [id number] e 8 MG TABS Dexlansopra 2021-0 Yes 60mg Take 60 mg [facility] zole 2-17 by mouth [place] (DEXILANT) 00:00: daily. of 60 MG CPDR 00 Medicin e trazodone 2021-0 Yes 100mg Take 100 [place] [facility] (DESYREL) 1-04 mg by [place] 100 MG 11:35: mouth of tablet 08 nightly. Medicin e lamotrigine 2021-0 Yes 100mg Take 100 [facility] (LAMICTAL) 1-04 mg by [place] 25 MG 11:35: mouth. of tablet 08 Medicin e trazodone 2021-0 Yes 100mg Take 100 [place] [facility] (DESYREL) 1-04 mg by [place] 100 MG 11:35: mouth of tablet 08 nightly. Medicin e lamotrigine 2021-0 Yes 100mg Take 100 [facility] (LAMICTAL) 1-04 mg by [place] 25 MG 11:35: mouth. of tablet 08 Medicin e fluticasone 2021-0 Yes 1{puff} Inhale 1 [facility] -salmeterol 1-04 Puff by [employer] (ADVAIR 00:00: mouth two of DISKUS) 00 times Medicin 250-50 daily. e MCG/DOSE inhaler fluticasone 2-0 Yes 1{puff} Inhale 1 [facility] -salmeterol 1-04 Puff by [employer] (ADVAIR 00:00: mouth two of DISKUS) 00 times Medicin 250-50 daily. e MCG/DOSE inhaler fluticasone 2-0 Yes 1{puff} Inhale 1 [facility] -salmeterol 1-04 Puff by [facility] (ADVAIR 00:00: mouth two of DISKUS) 00 times Medicin 250-50 daily. e MCG/DOSE inhaler fluticasone 2022-0 Yes 1{puff} Inhale 1 [facility] -salmeterol 1-04 Puff by [facility] (ADVAIR 00:00: mouth two of DISKUS) 00 times Medicin 250-50 daily. e MCG/DOSE inhaler azithromyci Yes [id number] Take as [facility] n 1-03 [facility] (ZITHROMAX) 00:00: on package of 250 MG 00 labeling. Medicin tablet Two pills e by mouth for the first day and then 1 pill daily until done. azithromyci Yes [id number] Take as [facility] n -03 [facility] (ZITHROMAX) 00:00: on package of 250 MG 00 labeling. Medicin tablet Two pills e by mouth for the first day and then 1 pill daily until done. predniSONE 2021- No [id number] 40mg Take 2 [facility] (DELTASONE) 06-26 Tablets by [facility] 20 MG 00:00: 05:59 mouth of tablet 00 :00 daily for Medicin 5 days. e predniSONE 2021- No [id number] 40mg Take 2 [facility] (DELTASONE) 06-26 Tablets by [facility] 20 MG 00:00: 05:59 mouth of tablet 00 :00 daily for Medicin 5 days. e methylPREDN 2020-06 Yes [id number] Day 1: 24 [facility] ISolone 4 2-15 mg on day [facility] MG TBPK 00:00: 00 administer Medicin ed as 8 mg e (2 tablets) before breakfast, 4 mg (1 tablet) after lunch, 4 mg (1 tablet) after supper, and 8 mg (2 tablets) at bedtime. Day 2: 20 mg on day 2 administer ed as 4 mg (1 tablet) before breakfast, 4 mg (1 tablet) after lunch, 4 mg (1 tablet) after supper, and 8 mg (2 tablets) at bedtime. Day 3: 16 mg on day 3 administer ed as 4 mg (1 tablet) before breakfast, 4 mg (1 tablet) after lunch, 4 mg (1 tablet) after supper, and 4 mg (1 tablet) at bedtime. Day 4: 12 mg on day 4 administer ed as 4 mg (1 tablet) before breakfast, 4 mg (1 tablet) after lunch, and 4 mg (1 tablet) at bedtime. Day 5: 8 mg on day 5 administer ed as 4 mg (1 tablet) before breakfast and 4 mg (1 tablet) at bedtime. Day 6: 4 mg on day 6 administer ed as 4 mg (1 tablet) before breakfast. methylPREDN 2020-06 Yes [id number] Day 1: 24 [facility] ISolone 4 2-15 mg on day [facility] MG TBPK 00:00: 1 00 administer Medicin ed as 8 mg e (2 tablets) before breakfast, 4 mg (1 tablet) after lunch, 4 mg (1 tablet) after supper, and 8 mg (2 tablets) at bedtime. Day 2: 20 mg on day 2 administer ed as 4 mg (1 tablet) before breakfast, 4 mg (1 tablet) after lunch, 4 mg (1 tablet) after supper, and 8 mg (2 tablets) at bedtime. Day 3: 16 mg on day 3 administer ed as 4 mg (1 tablet) before breakfast, 4 mg (1 tablet) after lunch, 4 mg (1 tablet) after supper, and 4 mg (1 tablet) at bedtime. Day 4: 12 mg on day 4 administer ed as 4 mg (1 tablet) before breakfast, 4 mg (1 tablet) after lunch, and 4 mg (1 tablet) at bedtime. Day 5: 8 mg on day 5 administer ed as 4 mg (1 tablet) before breakfast and 4 mg (1 tablet) at bedtime. Day 6: 4 mg on day 6 administer ed as 4 mg (1 tablet) before breakfast. trazodone 2020-06 Yes 100mg Take 100 [place] [facility] (DESYREL) 1-10 mg by [facility] 100 MG 11:29: mouth of tablet 50 nightly. Medicin e gabapentin 2020-06 Yes 800mg Take 1 [facility] (NEURONTIN) 0-04 Tablet by [facility] 800 MG 00:00: mouth 3 of tablet 00 times Medicin daily. e gabapentin 2020-06 Yes 800mg Take 1 [facility] (NEURONTIN) 0-04 Tablet by [facility] 800 MG 00:00: mouth 3 of tablet 00 times Medicin daily. e gabapentin 2020-06 Yes 800mg Take 1 [facility] (NEURONTIN) 0-04 Tablet by [facility] 800 MG 00:00: mouth 3 of tablet 00 times Medicin daily. e gabapentin 2020-06 Yes 800mg Take 1 [facility] (NEURONTIN) 0-04 Tablet by [facility] 800 MG 00:00: mouth 3 of tablet 00 times Medicin daily. e trazodone 2020-0 Yes 100mg Take 100 [place] [facility] (DESYREL) 9-10 mg by [facility] 100 MG 13:55: mouth of tablet 36 nightly. Medicin e lamotrigine 2020-0 Yes 100mg Take 100 [facility] (LAMICTAL) 9-10 mg by [place] 25 MG 13:55: mouth. of tablet 36 Medicin e lamotrigine 2020-0 Yes 100mg Take 100 [facility] (LAMICTAL) 9-10 mg by [facility] 25 MG 13:55: mouth. of tablet 36 Medicin e trazodone 2020-0 Yes 100mg Take 100 [place] [facility] (DESYREL) 9-10 mg by [facility] 100 MG 13:55: mouth of tablet 36 nightly. Medicin e lamotrigine 2020-0 Yes 100mg Take 100 [facility] (LAMICTAL) 9-10 mg by [place] 25 MG 13:55: mouth. of tablet 36 Medicin e azithromyci 2020-0 Yes [id number] Take as [facility] n 8-24 directed [place] (ZITHROMAX) 00:00: on package of 250 MG 00 labeling. Medicin tablet Two pills e by mouth for the first day and then 1 pill daily until done. Benzocaine- 2020-0 Yes 1U Take 1 [facility] Menthol 8-24 Units by [place] (CHLORASEPT 00:00: mouth 3 of IC) 6-10 MG 00 times Medicin LOZG daily as e needed. Benzocaine- 2020-0 Yes 1U Take 1 [facility] Menthol 8-24 Units by [place] (CHLORASEPT 00:00: mouth 3 of IC) 6-10 MG 00 times Medicin LOZG daily as e needed. Benzocaine- 2020-0 Yes 1U Take 1 [facility] Menthol 8-24 Units by [facility] (CHLORASEPT 00:00: mouth 3 of IC) 6-10 MG 00 times Medicin LOZG daily as e needed. Benzocaine- 2020-0 Yes 1U Take 1 [facility] Menthol 8-24 Units by [place] (CHLORASEPT 00:00: mouth 3 of IC) 6-10 MG 00 times Medicin LOZG daily as e needed. azithromyci 2020-0 Yes [id number] Take as [facility] n 8-24 directed [place] (ZITHROMAX) 00:00: on package of 250 MG 00 labeling. Medicin tablet Two pills e by mouth for the first day and then 1 pill daily until done. Benzocaine- Yes 1U Take 1 [facility] Menthol 8-24 Units by [place] (CHLORASEPT 00:00: mouth 3 of IC) 6-10 MG 00 times Medicin LOZG daily as e needed. azithromyci 2020- No [id number] Take as [facility] n 8-24 11-10 [facility] (ZITHROMAX) 00:00: 00:00 on package of 250 MG 00 :00 labeling. Medicin tablet Two pills e by mouth for the first day and then 1 pill daily until done. Levocetiriz Yes [id number] 1{tbl} Take 1 [facility] ine 8-02 Tablet by [facility] 00:00: mouth of ride 5 MG 00 daily. Medicin TABS e Levocetiriz Yes [id number] 1{tbl} Take 1 [facility] ine 8-02 Tablet by [facility] 00:00: mouth of ride 5 MG 00 daily. Medicin TABS e Levocetiriz Yes [id number] 1{tbl} Take 1 [facility] ine 8-02 Tablet by [facility] 00:00: mouth of ride 5 MG 00 daily. Medicin TABS e Levocetiriz 0 Yes [id number] 1{tbl} Take 1 [facility] ine 8-02 Tablet by [facility] 00:00: mouth of ride 5 MG 00 daily. Medicin TABS e Levocetiriz 0 Yes [id number] 1{tbl} Take 1 [facility] ine 8-02 Tablet by [facility] 00:00: mouth of ride 5 MG 00 daily. Medicin TABS e Levocetiriz Yes [id number] 1{tbl} Take 1 [facility] ine 8-02 Tablet by [facility] 00:00: mouth of ride 5 MG 00 daily. Medicin TABS e Levocetiriz Yes [id number] 1{tbl} Take 1 [facility] ine 8-02 Tablet by [facility] 00:00: mouth of ride 5 MG 00 daily. Medicin TABS e Levocetiriz 2020-0 Yes [id number] 1{tbl} Take 1 [facility] ine 8-02 Tablet by [facility] 00:00: mouth of ride 5 MG 00 daily. Medicin TABS e Levocetiriz 2020-0 Yes [id number] 1{tbl} Take 1 [facility] ine 8-02 Tablet by [facility] 00:00: mouth of ride 5 MG 00 daily. Medicin TABS e Levocetiriz 2020-0 Yes [id number] 1{tbl} Take 1 [facility] ine 8-02 Tablet by [facility] 00:00: mouth of ride 5 MG 00 daily. Medicin TABS e Levocetiriz 2020-0 Yes [id number] 1{tbl} Take 1 [facility] ine 8-02 Tablet by [facility] 00:00: mouth of ride 5 MG 00 daily. Medicin TABS e Levocetiriz 2020-0 Yes [id number] 1{tbl} Take 1 [facility] ine 8-02 Tablet by [facility] 00:00: mouth of ride 5 MG 00 daily. Medicin TABS e Levocetiriz 2020-0 Yes [id number] 1{tbl} Take 1 [facility] ine 8-02 Tablet by [facility] 00:00: mouth of ride 5 MG 00 daily. Medicin TABS e Levocetiriz 2020-0 Yes [id number] 1{tbl} Take 1 [facility] ine 8-02 Tablet by [facility] 00:00: mouth of ride 5 MG 00 daily. Medicin TABS e Levocetiriz 2020-0 Yes [id number] 1{tbl} Take 1 [facility] ine 8-02 Tablet by [facility] 00:00: mouth of ride 5 MG 00 daily. Medicin TABS e Levocetiriz 2020-0 Yes [id number] 1{tbl} Take 1 [facility] ine 8-02 Tablet by [facility] 00:00: mouth of ride 5 MG 00 daily. Medicin TABS e Levocetiriz 2020-0 Yes [id number] 1{tbl} Take 1 [facility] ine 8-02 Tablet by [facility] 00:00: mouth of ride 5 MG 00 daily. Medicin TABS e Levocetiriz 2020-0 Yes [id number] 1{tbl} Take 1 [facility] ine 8-02 Tablet by [facility] 00:00: mouth of ride 5 MG 00 daily. Medicin TABS e Levocetiriz 2020-0 Yes [id number] 1{tbl} Take 1 [facility] ine 8-02 Tablet by [facility] 00:00: mouth of ride 5 MG 00 daily. Medicin TABS e meclizine 2020-0 Yes [id number] 25mg Take 1 [facility] (ANTIVERT) 7-23 Tablet by [facility] 25 MG 00:00: mouth 3 of tablet 00 times Medicin daily as e needed for Dizziness. ondansetron 2020-0 Yes [id number] 8mg Take 1 [facility] (ZOFRAN-ODT 7-23 Tablet by [facility] ) 8 mg 00:00: mouth of disintegrat 00 every 8 Medic in ing tablet hours as e needed for Nausea. meclizine 2020-0 Yes [id number] 25mg Take 1 [facility] (ANTIVERT) 7-23 Tablet by [facility] 25 MG 00:00: mouth 3 of tablet 00 times Medicin daily as e needed for Dizziness. ondansetron 2020-0 Yes [id number] 8mg Take 1 [facility] (ZOFRAN-ODT 7-23 Tablet by [facility] ) 8 mg 00:00: mouth of disintegrat 00 every 8 Medic in ing tablet hours as e needed for Nausea. meclizine 2020-0 Yes [id number] 25mg Take 1 [facility] (ANTIVERT) 7-23 Tablet by [facility] 25 MG 00:00: mouth 3 of tablet 00 times Medicin daily as e needed for Dizziness. ondansetron 2020-0 Yes [id number] 8mg Take 1 [facility] (ZOFRAN-ODT 7-23 Tablet by [facility] ) 8 mg 00:00: mouth of disintegrat 00 every 8 Medic in ing tablet hours as e needed for Nausea. meclizine 2020-0 Yes [id number] 25mg Take 1 [facility] (ANTIVERT) 7-23 Tablet by [facility] 25 MG 00:00: mouth 3 of tablet 00 times Medicin daily as e needed for Dizziness. ondansetron 2020-0 Yes [id number] 8mg Take 1 [facility] (ZOFRAN-ODT 7-23 Tablet by [facility] ) 8 mg 00:00: mouth of disintegrat 00 every 8 Medic in ing tablet hours as e needed for Nausea. meclizine 2020-0 Yes [id number] 25mg Take 1 [facility] (ANTIVERT) 7-23 Tablet by [facility] 25 MG 00:00: mouth 3 of tablet 00 times Medicin daily as e needed for Dizziness. ondansetron 2020-0 Yes [id number] 8mg Take 1 [facility] (ZOFRAN-ODT 7-23 Tablet by [facility] ) 8 mg 00:00: mouth of disintegrat 00 every 8 Medic in ing tablet hours as e needed for Nausea. azithromyci 2020-0 Yes [id number] Take as [facility] 7-15 [facility] (ZITHROMAX) 00:00: on package of 250 MG 00 labeling. Medicin tablet Two pills e by mouth for the first day and then 1 pill daily until done. azithromyci 0 Yes [id number] Take as [facility] 7-15 [facility] (ZITHROMAX) 00:00: on package of 250 MG 00 labeling. Medicin tablet Two pills e by mouth for the first day and then 1 pill daily until done. azithromyci 2020-0 Yes [id number] Take as [facility] 7-15 [facility] (ZITHROMAX) 00:00: on package of 250 MG 00 labeling. Medicin tablet Two pills e by mouth for the first day and then 1 pill daily until done. azithromyci 2020-0 Yes [id number] Take as [facility] n 7-15 [facility] (ZITHROMAX) 00:00: on package of 250 MG 00 labeling. Medicin tablet Two pills e by mouth for the first day and then 1 pill daily until done. azithromyci 2020-0 Yes [id number] Take as [facility] n 7-15 [facility] (ZITHROMAX) 00:00: on package of 250 MG 00 labeling. Medicin tablet Two pills e by mouth for the first day and then 1 pill daily until done. Dexlansopra 2020-0 Yes [id number] 1{tbl} Take 1 [facility] zole 7-13 Tablet by [place] (DEXILANT) 00:00: mouth of 60 MG CPDR 00 daily. Medicin e Dexlansopra 2020-0 Yes [id number] 1{tbl} Take 1 [facility] zole 7-13 Tablet by [place] (DEXILANT) 00:00: mouth of 60 MG CPDR 00 daily. Medicin e Dexlansopra 2020-0 Yes [id number] 1{tbl} Take 1 [facility] zole 7-13 Tablet by [place] (DEXILANT) 00:00: mouth of 60 MG CPDR 00 daily. Medicin e Dexlansopra 2020-0 Yes [id number] 1{tbl} Take 1 [facility] zole 7-13 Tablet by [place] (DEXILANT) 00:00: mouth of 60 MG CPDR 00 daily. Medicin e Dexlansopra 2020-0 Yes [id number] 1{tbl} Take 1 [facility] zole 7-13 Tablet by [place] (DEXILANT) 00:00: mouth of 60 MG CPDR 00 daily. Medicin e guaifenesin Yes [id number] 600mg Take 1 [facility] (MUCINEX) 7- 6 Tablet by [facility] ge 600 MG SR 00:00: mouth two of tablet 00 times Medicin daily. e Levocetiriz Yes [id number] 1{tbl} Take 1 [facility] ine 7-08 6 Tablet by [place] Di[facility]lo 00:00: mouth of ride 5 MG 00 daily as Medici n TABS needed. e Azelastine- Yes [id number] 1{spray 1 [place] by [facility] Fluticasone 12-29 6 } Nasal [place] 137-50 00:00: route 2 of MCG/ACT 00 times Medicin SUSP daily as e needed. albuterol 0 Yes [id number] 90ug Inhale 1-2 [facility] 108 (90 12-29 6 Puffs by [place] [facility]) 00:00: mouth of mcg/act 00 every 6 Medicin inhaler hours as e needed for Wheezing. guaifenesin 0 Yes [id number] 600mg Take 1 [facility] (MUCINEX) 7-08 6 Tablet by [facility] ge 600 MG SR 00:00: mouth two of tablet 00 times Medicin daily. e Levocetiriz 2020- Yes [id number] 1{tbl} Take 1 [facility] ine 7-08 6 Tablet by [facility] 00:00: mouth of ride 5 MG 00 daily as Medici n TABS needed. e Azelastine- Yes [id number] 1{spray 1 [place] by [facility] Fluticasone 12-29 6 } Nasal [place] [address] 00:00: route 2 of MCG/ACT 00 times Medicin SUSP daily as e needed. albuterol 2020-0 Yes [id number] 90ug Inhale 1-2 [facility] 108 (90 7-08 6 Puffs by [facility]) 00:00: mouth of mcg/act 00 every 6 Medicin inhaler hours as e needed for Wheezing. guaifenesin 0 Yes [id number] 600mg Take 1 [facility] (MUCINEX) 7-08 6 Tablet by [facility] 600 MG SR 00:00: mouth two of tablet 00 times Medicin daily. e Levocetiriz Yes [id number] 1{tbl} Take 1 [facility] ine 7-08 6 Tablet by [facility] 00:00: mouth of ride 5 MG 00 daily as Medici n TABS needed. e Azelastine- Yes [id number] 1{spray 1 [place] by [facility] Fluticasone 12-29 6 } Nasal [place] [address] 00:00: route 2 of MCG/ACT 00 times Medicin SUSP daily as e needed. albuterol 2020-0 Yes [id number] 90ug Inhale 1-2 [facility] 108 (90 7-08 6 Puffs by [facility]) 00:00: mouth of mcg/act 00 every 6 Medicin inhaler hours as e needed for Wheezing. guaifenesin 2020-0 Yes [id number] 600mg Take 1 [facility] (MUCINEX) 7-08 6 Tablet by [facility] 600 MG SR 00:00: mouth two of tablet 00 times Medicin daily. e Levocetiriz 2020-0 Yes [id number] 1{tbl} Take 1 [facility] ine 7-08 6 Tablet by [facility] 00:00: mouth of ride 5 MG 00 daily as Medici n TABS needed. e Azelastine- 2021-0 Yes [id number] 1{spray 1 [place] by [facility] Fluticasone 08 6 } Nasal [place] 137-50 00:00: route 2 of MCG/ACT 00 times Medicin SUSP daily as e needed. albuterol Yes [id number] 90ug Inhale 1-2 [facility] 108 (90 7-08 6 Puffs by [facility]) 00:00: mouth of mcg/act 00 every 6 Medicin inhaler hours as e needed for Wheezing. Levocetiriz Yes [id number] 1{tbl} Take 1 [facility] ine 7-08 6 Tablet by [facility] 00:00: mouth of ride 5 MG 00 daily as Medici n TABS needed. e guaifenesin Yes [id number] 600mg Take 1 [facility] (MUCINEX) 7-08 6 Tablet by [facility] 600 MG SR 00:00: mouth two of tablet 00 times Medicin daily. e Levocetiriz Yes [id number] 1{tbl} Take 1 [facility] ine 7-08 6 Tablet by [facility] 00:00: mouth of ride 5 MG 00 daily as Medici n TABS needed. e Azelastine- Yes [id number] 1{spray 1 [place] by [facility] Fluticasone 12-29 6 } Nasal [place] [address] 00:00: route 2 of MCG/ACT 00 times Medicin SUSP daily as e needed. albuterol Yes [id number] 90ug Inhale 1-2 [facility] 108 (90 7-08 6 Puffs by [facility]) 00:00: mouth of mcg/act 00 every 6 Medicin inhaler hours as e needed for Wheezing. Levocetiriz Yes [id number] 1{tbl} Take 1 [facility] ine 7-08 6 Tablet by [facility] 00:00: mouth of ride 5 MG 00 daily as Medici n TABS needed. e Adalimumab 0 Yes [id number] 40mg Inject 40 [facility] 40 MG/0.4ML 6-30 mg into [facility] PNKT 00:00: the skin of 00 every 14 Medicin days. e Adalimumab 2020-0 Yes [id number] 40mg Inject 40 [facility] 40 MG/0.4ML 6-30 mg into [facility] PNKT 00:00: the skin of 00 every 14 Medicin days. e Adalimumab 2020-0 Yes [id number] 40mg Inject 40 [facility] 40 MG/0.4ML 6-30 mg into [facility] PNKT 00:00: the skin of 00 every 14 Medicin days. e Adalimumab 2020-0 Yes [id number] 40mg Inject 40 [facility] 40 MG/0.4ML 6-30 mg into [facility] PNKT 00:00: the skin of 00 every 14 Medicin days. e Adalimumab 2020-0 Yes [id number] 40mg Inject 40 [facility] 40 MG/0.4ML 6-30 mg into [facility] PNKT 00:00: the skin of 00 every 14 Medicin days. e Adalimumab 2020-0 2022- No [id number] 40mg Inject 40 [facility] 40 MG/0.4ML 6-30 03-18 mg into [facility] PNKT 00:00: 00:00 the skin of 00 :00 every 14 Medicin days. e ondansetron 2020-0 Yes [id number] 8mg Take 1 [facility] (ZOFRAN) 8 6-21 Tablet by [facility] mg tablet 00:00: mouth of 00 every 8 Medicin hours as e needed. ondansetron 2020-0 Yes [id number] 8mg Take 1 [facility] (ZOFRAN) 8 6-21 Tablet by [facility] mg tablet 00:00: mouth of 00 every 8 Medicin hours as e needed. ondansetron 2020-0 Yes [id number] 8mg Take 1 [facility] (ZOFRAN) 8 6-21 Tablet by [facility] mg tablet 00:00: mouth of 00 every 8 Medicin hours as e needed. ondansetron 2020-0 Yes [id number] 8mg Take 1 [facility] (ZOFRAN) 8 6-21 Tablet by [facility] mg tablet 00:00: mouth of 00 every 8 Medicin hours as e needed. ondansetron 2020-0 Yes [id number] 8mg Take 1 [facility] [facility] (ZOFRAN[facility] 8 6-21 Tablet by Deangelo ege mg tablet 00:00: mouth of 00 every 8 Medicin hours as e needed. fluticasone 2020-0 Yes 2{spray 2 Sprays [facility] (FLONASE) 6-15 } by Each [place] 50 MCG/ACT 00:00: Nostril of nasal spray 00 route two Med icin times e daily. fluticasone 0 Yes 2{spray 2 Sprays [facility] (FLONASE) 6-15 } by Each [facility] 50 MCG/ACT 00:00: Nostril of nasal spray 00 route two Med icin times e daily. fluticasone 0 Yes 2{spray 2 Sprays [facility] (FLONASE) 6-15 } by Each [place] 50 MCG/ACT 00:00: Nostril of nasal spray 00 route two Med icin times e daily. fluticasone 0 Yes 2{spray 2 Sprays [facility] (FLONASE) 6-15 } by Each [place] 50 MCG/ACT 00:00: Nostril of nasal spray 00 route two Med icin times e daily. fluticasone 0 Yes 2{spray 2 Sprays [facility] (FLONASE) 6-15 } by Each [place] 50 MCG/ACT 00:00: Nostril of nasal spray 00 route two Med icin times e daily. fluticasone 0 Yes 2{spray 2 Sprays [facility] (FLONASE) 6-15 } by Each [place] 50 MCG/ACT 00:00: Nostril of nasal spray 00 route two Med icin times e daily. fluticasone 0 Yes 2{spray 2 Sprays [facility] (FLONASE) 6-15 } by Each [place] 50 MCG/ACT 00:00: Nostril of nasal spray 00 route two Med icin times e daily. trazodone Yes 100mg Take 100 [place] [facility] (DESYREL) 6-11 mg by [place] 100 MG 11:34: mouth of tablet 44 nightly. Medicin e lamotrigine 0 Yes 100mg Take 100 [facility] (LAMICTAL) 6-11 mg by [place] 25 MG 11:34: mouth. of tablet 44 Medicin e Apixaban 0 Yes [id number] 1{tbl} Take 1 [facility] (ELIQUIS) 5 6-04 Tablet by [facility] MG TABS 00:00: mouth two of 00 times Medicin daily. e Apixaban 0 Yes [id number] 1{tbl} Take 1 [facility] (ELIQUIS) 5 6-04 Tablet by [facility] MG TABS 00:00: mouth two of 00 times Medicin daily. e Apixaban 2020-0 Yes [id number] 1{tbl} Take 1 [facility] (ELIQUIS) 5 6-04 Tablet by [facility] MG TABS 00:00: mouth two of 00 times Medicin daily. e Apixaban 2020-0 Yes [id number] 1{tbl} Take 1 [facility] (ELIQUIS) 5 6-04 Tablet by [facility] MG TABS 00:00: mouth two of 00 times Medicin daily. e Apixaban 2020-0 Yes [id number] 1{tbl} Take 1 [facility] (ELIQUIS) 5 6-04 Tablet by [facility] MG TABS 00:00: mouth two of 00 times Medicin daily. e Apixaban 2020-0 Yes [id number] 1{tbl} Take 1 [facility] (ELIQUIS) 5 6-04 Tablet by [facility] MG TABS 00:00: mouth two of 00 times Medicin daily. e Dexlansopra 2020-0 Yes [id number] 1{tbl} Take 1 [facility] zole 6-02 Tablet by [place] (DEXILANT) 00:00: mouth of 60 MG CPDR 00 daily. Medicin e Mesalamine Yes 4.8g Take 4 [facility] (LIALDA) 6-02 Tablets by Colle [facility] 1.2 g TBEC 00:00: mouth of 00 daily. Medicin e Mesalamine 2020-0 Yes 4.8g Take 4 [facility] (LIALDA) 6-02 Tablets by [facility] 1.2 g TBEC 00:00: mouth of 00 daily. Medicin e Mesalamine 2020-0 Yes 4.8g Take 4 [facility] (LIALDA) 6-02 Tablets by Colle [facility] 1.2 g TBEC 00:00: mouth of 00 daily. Medicin e Mesalamine 2020-0 Yes 4.8g Take 4 [facility] (LIALDA) 6-02 Tablets by Colle [facility] 1.2 g TBEC 00:00: mouth of 00 daily. Medicin e Mesalamine 2020-0 Yes 4.8g Take 4 [facility] (LIALDA) 6-02 Tablets by Colle [facility] 1.2 g TBEC 00:00: mouth of 00 daily. Medicin e Mesalamine Yes 4.8g Take 4 [facility] (LIALDA) 6-02 Tablets by Col[facility] 1.2 g TBEC 00:00: mouth of 00 daily. Medicin e lamotrigine Yes 200mg Take 200 [facility] (LAMICTAL) 5-24 mg by [place] 100 MG 00:00: mouth. of tablet 00 Medicin e Hydrocortis Yes 1{appli Apply 1 [facility] one, 5-21 cation} applicatio [facility], 00:00: n of (ANUSOL-HC) 00 topically Med icin 2.5 % CREA two times e daily. Hydrocortis Yes 1{appli Apply 1 [facility] one, 5-21 cation} applicatio [facility], 00:00: n of (ANUSOL-HC) 00 topically Med icin 2.5 % CREA two times e daily. Hydrocortis Yes 1{appli Apply 1 [facility] one, 5-21 cation} applicatio [facility], 00:00: n of (ANUSOL-HC) 00 topically Med icin 2.5 % CREA two times e daily. Hydrocortis Yes 1{appli Apply 1 [facility] one, 5-21 cation} applicatio [facility] Per[facility], 00:00: n of (ANUSOL-HC) 00 topically Med icin 2.5 % CREA two times e daily. Hydrocortis Yes 1{appli Apply 1 [facility] one, 5-21 cation} applicatio [facility] Per[facility], 00:00: n of (ANUSOL-HC) 00 topically Med icin 2.5 % CREA two times e daily. Hydrocortis Yes 1{appli Apply 1 [facility] one, 5-21 cation} applicatio [facility], 00:00: n of (ANUSOL-HC) 00 topically Med icin 2.5 % CREA two times e daily. Hydrocortis Yes 1{appli Apply 1 [facility] one, 5-21 cation} applicatio [facility], 00:00: n of (ANUSOL-HC) 00 topically Med icin 2.5 % CREA two times e daily. Hydrocortis Yes 1{appli Apply 1 [facility] one, 5-21 cation} applicatio [facility], 00:00: n of (ANUSOL-HC) 00 topically Med icin 2.5 % CREA two times e daily. Hydrocortis Yes 1{appli Apply 1 [facility] one, 5-21 cation} applicatio [facility], 00:00: n of (ANUSOL-HC) 00 topically Med icin 2.5 % CREA two times e daily. Amphetamine Amphetamine Yes HECTOR Q0.5D TAKE 1 [facility] -Dextroamph -Dextroamph 4-21 STORM M.D. TABLET [facility] etamine 5 etamine 5 00:00: TWICE an s MG Oral MG Oral 00 DAILY. Tablet Tablet dextroamphe 2021- No 1{tbl} QD Take [address] tamine-amph 4-21 09-24 tablet by [facility] pearl 5 00:00: 00:00 mouth Medica l mg Tab 00 :00 daily In Center the afternoon . ELIQUIS 5 0 Yes [id number] TAKE ONE [facility] MG TABS 4-14 TABLET BY [place] 00:00: MOUTH of 00 TWICE A Medicin DAY e meclizine 0 Yes 25mg Take 1 [facility] (ANTIVERT) 1-20 Tablet by [facility] ege 25 MG 00:00: mouth 3 of tablet 00 times Medicin daily as e needed for Dizziness. ondansetron 0 Yes 8mg Take 1 [facility] (ZOFRAN) 8 1-20 Tablet by Deangelo ege mg tablet 00:00: mouth of 00 every 8 Medicin hours as e needed. meclizine 0 Yes 25mg Take 1 [facility] (ANTIVERT) 1-20 Tablet by [facility] 25 MG 00:00: mouth 3 of tablet 00 times Medicin daily as e needed for Dizziness. ondansetron 0 Yes 8mg Take 1 [facility] (ZOFRAN) 8 1-20 Tablet by De[facility]o ege mg tablet 00:00: mouth of 00 every 8 Medicin hours as e needed. Mesalamine 0 Yes 4.8g Take 4 [facility] (LIALDA) 1-05 Tablets by [facility] ge 1.2 g TBEC 00:00: mouth of 00 daily. Medicin e trazodone 2019-06 Yes 100mg Take 100 [place] [facility] (DESYREL) 2-22 mg by [place] 100 MG 20:30: mouth of tablet 18 nightly. Medicin e lamotrigine 2019-06 Yes 100mg Take 100 [facility] (LAMICTAL) 2-22 mg by [place] 25 MG 20:30: mouth. of tablet 18 Medicin e trazodone 2019-06 Yes 100mg Take 100 [place] [facility] (DESYREL) 2-22 mg by [place] 100 MG 14:30: mouth of tablet 18 nightly. Medicin e lamotrigine 2019-06 Yes 100mg Take 100 [facility] (LAMICTAL) 2-22 mg by [place] 25 MG 14:30: mouth. of tablet 18 Medicin e ELIQUIS 5 2019-06 Yes [id number] TAKE ONE [facility] MG TABS 2-09 TABLET BY [place] 00:00: MOUTH of 00 TWICE A Medicin DAY e Dexlansopra 2019-06 Yes [id number] 1{tbl} Take 1 [facility] zole 2-04 Tablet by [place] (DEXILANT) 00:00: mouth of 60 MG CPDR 00 daily. Medicin e Dexlansopra 2019-06 Yes [id number] 1{tbl} Take 1 [facility] zole 2-04 Tablet by [place] (DEXILANT) 00:00: mouth of 60 MG CPDR 00 daily. Medicin e Norethin-Et 2019-06- No Take by [facility] Estrad-Fe 07-12 mouth. Colle ge Bip[facility] (LO 19:45: 00:00 of LOESTRIN 56 :00 Medicin FE) 1 MG-10 e MCG / 10 MCG TABS Norethin-Et 2019-06 2020- No Take by ylor h Estrad-Fe 07-12 mouth. Colle ge [facility] (LO 19:45: 00:00 of LOESTRIN 56 :00 Medicin FE) 1 MG-10 e MCG / 10 MCG TABS trazodone 2019-06 Yes 100mg Take 100 [place] [facility] (DESYREL) 1-19 mg by [place] 100 MG 19:45: mouth of tablet 50 nightly. Medicin e lamotrigine 2019-06 Yes 100mg Take 100 [facility] (LAMICTAL) 1-19 mg by [place] 25 MG 19:45: mouth. of tablet 50 Medicin e trazodone 2019-06 Yes 100mg Take 100 [place] [facility] (DESYREL) 1-19 mg by [place] 100 MG 19:45: mouth of tablet 50 nightly. Medicin e lamotrigine 2019-06 Yes 100mg Take 100 [facility] [place] (LAMICTAL) 1-19 mg by [place] 25 MG 19:45: mouth. of tablet 50 Medicin e fluticasone 2019-06 Yes 2{spray 2 Sprays [facility] (FLONASE) 1-19 } by Each [place] 50 MCG/ACT 00:00: Nostril of nasal spray 00 route two Med icin times e daily. gabapentin 2019-06 Yes 300mg Take 1 [facility] (NEURONTIN) 1-19 capsule by [facility] 300 MG 00:00: mouth 3 of capsule 00 times Medicin daily. e fluticasone 2019-06 Yes 2{spray 2 Sprays [facility] (FLONASE) 1-19 } by Each [place] 50 MCG/ACT 00:00: Nostril of nasal spray 00 route two Med icin times e daily. fluticasone 2019-06 Yes 2{spray 2 Sprays [facility] (FLONASE) 1-19 } by Each [place] 50 MCG/ACT 00:00: Nostril of nasal spray 00 route two Med icin times e daily. gabapentin 2019-06 Yes 300mg Take 1 [facility] (NEURONTIN) 1-19 capsule by [facility] 300 MG 00:00: mouth 3 of capsule 00 times Medicin daily. e fluticasone 2019-06 Yes 2{spray 2 Sprays [facility] (FLONASE) 1-19 } by Each [place] 50 MCG/ACT 00:00: Nostril of nasal spray 00 route two Med icin times e daily. gabapentin 2019-06 Yes 300mg Take 1 [facility] (NEURONTIN) 1-19 capsule by [facility] 300 MG 00:00: mouth 3 of capsule 00 times Medicin daily. e fluticasone 2019-06 Yes 2{spray 2 Sprays [facility] (FLONASE) 1-19 } by Each [facility] 50 MCG/ACT 00:00: Nostril of nasal spray 00 route two Med icin times e daily. gabapentin 2020- Yes 300mg Take 1 [facility] (NEURONTIN) 1-19 capsule by [facility] 300 MG 00:00: mouth 3 of capsule 00 times Medicin daily. e gabapentin 2020- Yes 300mg Take 1 [facility] (NEURONTIN) 1-19 capsule by [facility] 300 MG 00:00: mouth 3 of capsule 00 times Medicin daily. e gabapentin 2020- Yes 300mg Take 1 [facility] (NEURONTIN) 1-19 capsule by [facility] 300 MG 00:00: mouth 3 of capsule 00 times Medicin daily. e ketoconazol 2020- Yes Apply to Un marko [facility] 2 % 1-18 affected ity of shampoo 00:00: [facility] 00 daily. Medical Apply to Branch affected areas and let shampoo sit for 5 minutes then rinse. ketoconazol 2020- Yes Apply to Un marko e 2 % 1-18 affected ity of shampoo 00:00: areas 00 daily. Medical Apply to Branch affected areas and let shampoo sit for 5 minutes then rinse. ketoconazol 2020- Yes Apply to Un marko e 2 % 1-18 affected ity of shampoo 00:00: [facility] 00 daily. Medical Apply to Branch affected areas and let shampoo sit for 5 minutes then rinse. ketoconazol 2020- Yes Apply to Un marko e 2 % 1-18 affected ity of shampoo 00:00: [facility] daily. Medical Apply to Branch affected areas and let shampoo sit for 5 minutes then rinse. ketoconazol 2020-1 Yes Apply to Un marko e 2 % 1-18 affected ity of shampoo 00:00: areas 00 daily. Medical Apply to Branch affected areas and let shampoo sit for 5 minutes then rinse. ketoconazol 2020-1 Yes Apply to Un marko e 2 % 1-18 affected ity of shampoo 00:00: areas 00 daily. Medical Apply to Branch affected areas and let shampoo sit for 5 minutes then rinse. ketoconazol 2020-1 Yes Apply to Un marko e 2 % 1-18 affected ity of shampoo 00:00: areas [place] 00 daily. Medical Apply to Branch affected areas and let shampoo sit for 5 minutes then rinse. ketoconazol 2020-1 Yes Apply to Un marko e 2 % 1-18 affected ity of shampoo 00:00: areas [place] 00 daily. Medical Apply to Branch affected areas and let shampoo sit for 5 minutes then rinse. ketoconazol 2020-1 Yes Apply to Un marko e 2 % 1-18 affected ity of shampoo 00:00: areas [place] 00 daily. Medical Apply to Branch affected areas and let shampoo sit for 5 minutes then rinse. ketoconazol 2020-1 Yes Apply to Un [facility]o e 2 % 1-18 affected ity of shampoo 00:00: areas [place] 00 daily. Medical Apply to Branch affected areas and let shampoo sit for 5 minutes then rinse. ketoconazol 2020-1 Yes Apply to Un [facility] 2 % 1-18 affected ity of shampoo 00:00: areas [place] 00 daily. Medical Apply to Branch affected areas and let shampoo sit for 5 minutes then rinse. ketoconazol 2020-1 Yes Apply to Un [facility] 2 % 1-18 affected ity of shampoo 00:00: areas [place] 00 daily. Medical Apply to Branch affected areas and let shampoo sit for 5 minutes then rinse. ketoconazol 2020-1 Yes Apply to Un [facility] 2 % 1-18 affected ity of shampoo 00:00: areas [place] 00 daily. Medical Apply to Branch affected areas and let shampoo sit for 5 minutes then rinse. ketoconazol 2020-1 Yes Apply to Un [facility] 2 % 1-18 affected ity of shampoo 00:00: areas [place] 00 daily. Medical Apply to Branch affected areas and let shampoo sit for 5 minutes then rinse. ketoconazol 2020-1 Yes Apply to Un [facility] 2 % 1-18 affected ity of shampoo 00:00: areas [place] 00 daily. Medical Apply to Branch affected areas and let shampoo sit for 5 minutes then rinse. ketoconazol 2020-1 Yes Apply to [facility] 2 % 1-18 affected ity of shampoo 00:00: areas [place] 00 daily. Medical Apply to Branch affected areas and let shampoo sit for 5 minutes then rinse. ketoconazol 2020-1 Yes Apply to Un [facility] 2 % 1-18 affected ity of shampoo 00:00: areas [place] 00 daily. Medical Apply to Branch affected areas and let shampoo sit for 5 minutes then rinse. ketoconazol 2020-1 Yes Apply to [facility] 2 % 1-18 affected ity of shampoo 00:00: areas [place] 00 daily. Medical Apply to Branch affected areas and let shampoo sit for 5 minutes then rinse. ketoconazol 2020-1 Yes Apply to [facility] 2 % 1-18 affected ity of shampoo 00:00: areas [place] 00 daily. Medical Apply to Branch affected areas and let shampoo sit for 5 minutes then rinse. ketoconazol 2020-1 Yes Apply to [facility] 2 % 1-18 affected ity of shampoo 00:00: areas [place] 00 daily. Medical Apply to Branch affected areas and let shampoo sit for 5 minutes then rinse. ketoconazol 2020-1 Yes Apply to [facility] 2 % 1-18 affected ity of shampoo 00:00: areas [place] 00 daily. Medical Apply to Branch affected areas and let shampoo sit for 5 minutes then rinse. ketoconazol 2020-1 Yes Apply to [facility] 2 % 1-18 affected ity of shampoo 00:00: areas [place] 00 daily. Medical Apply to Branch affected areas and let shampoo sit for 5 minutes then rinse. ketoconazol 2020-1 Yes Apply to Un [facility] 2 % 1-18 affected ity of shampoo 00:00: areas [place] 00 daily. Medical Apply to Branch affected areas and let shampoo sit for 5 minutes then rinse. ketoconazol 2020-1 Yes Apply to Un [facility] 2 % 1-18 affected ity of shampoo 00:00: areas [place] 00 daily. Medical Apply to Branch affected areas and let shampoo sit for 5 minutes then rinse. pantoprazol 2020-1 Yes 40mg Take 1 Tab [facility] e 1-03 by mouth [facility] (PROTONIX) 00:00: daily. 1 of 40 MG 00 tablet by Medicin tablet mouth e every day pantoprazol 2020-1 Yes 40mg Take 1 Tab [facility] e 1-03 by [facility] [place]PROTONIX) 00:00: daily. 1 of 40 MG 00 tablet by Medicin tablet mouth e every day pantoprazol 2019-06 Yes 40mg Take 1 Tab [facility] e 1-03 by mouth [place] (PROTONIX) 00:00: daily. 1 of 40 MG 00 tablet by Medicin tablet mouth e every day pantoprazol 2019-06 Yes 40mg Take 1 Tab [facility] e 1-03 by mouth [place] (PROTONIX) 00:00: daily. 1 of 40 MG 00 tablet by Medicin tablet mouth e every day pantoprazol 2019-06 Yes 40mg Take 1 Tab [facility] e 1-03 by mouth [place] (PROTONIX) 00:00: daily. 1 of 40 MG 00 tablet by Medicin tablet mouth e every day pantoprazol 2019-06- No 40mg Take 1 Tab [facility] e 1-08 30-10 by mouth [place] (PROTONIX) 00:00: 00:00 daily. 1 of 40 MG 00 :00 tablet by Medicin tablet mouth e every day pantoprazol 2019-06- No 40mg Take 1 Tab [facility] e -08 30- by [facility] (PROTONIX) 00:00: 00:00 daily. 1 of 40 MG 00 :00 tablet by Medicin tablet mouth e every day Apixaban 2019-06 Yes [id number] 5mg Take 5 mg [facility] (ELIQUIS) 5 0-19 by mouth [facility] MG TABS 00:00: two times of 00 daily. Medicin e Apixaban 2019-06 Yes [id number] 5mg Take 5 mg [facility] (ELIQUIS) 5 0-19 by mouth [facility] MG TABS 00:00: two times of 00 daily. Medicin e clindamycin 2020-0 Yes [id number] Apply to [facility] 1 % gel 9-17 affected ity of 00:00: area(s) 2 [place] 00 (two) Medical times Branch daily. clindamycin 2020-0 Yes [id number] Apply to [facility] 1 % gel 9-17 affected ity of 00:00: area(s) 2 [place] [facility] Medical times Branch daily. clindamycin 2020-0 Yes [id number] Apply to [facility] 1 % gel 9-17 affected ity of 00:00: area(s) 2 [place] 00 (two) Medical times Branch daily. clindamycin 2020-0 Yes [id number] Apply to [facility] 1 % gel 9-17 affected ity of 00:00: area(s) 2 [place] 00 (two) Medical times Branch daily. clindamycin 2020-0 Yes [id number] Apply to [facility] 1 % gel 9-17 affected ity of 00:00: area(s) 2 [place] 00 (two) Medical times Branch daily. clindamycin 2020-0 Yes [id number] Apply to [facility] 1 % gel 9-17 affected ity of 00:00: area(s) 2 [place] 00 (two) Medical times Branch daily. clindamycin 2020-0 Yes [id number] Apply to [facility] 1 % gel 9-17 affected ity of 00:00: area(s) 2 [place] 00 (two) Medical times Branch daily. clindamycin 2020-0 Yes [id number] Apply to [facility] 1 % gel 9-17 affected ity of 00:00: area(s) 2 [place] 00 (two) Medical times Branch daily. clindamycin 2020-0 Yes [id number] Apply to [facility] 1 % gel 9-17 affected ity of 00:00: area(s) 2 [place] 00 (two) Medical times Branch daily. clindamycin 2020-0 Yes [id number] Apply to [facility] 1 % gel 9-17 affected ity of 00:00: area(s) 2 [place] 00 (two) Medical times Branch daily. clindamycin 2020-0 Yes [id number] Apply to [facility] 1 % gel 9-17 affected ity of 00:00: area(s) 2 [place] 00 (two) Medical times Branch daily. clindamycin 2020-0 Yes [id number] Apply to [facility] 1 % gel 9-17 affected ity of 00:00: area(s) 2 [place] 00 (two) Medical times Branch daily. clindamycin 2020-0 Yes [id number] Apply to Univers 1 % gel 9-17 affected ity of 00:00: area(s) 2 [place] 00 (two) Medical times Branch daily. clindamycin 2020-0 Yes [id number] Apply to Univers 1 % gel 9-17 affected ity of 00:00: area(s) 2 [place] 00 (two) Medical times Branch daily. clindamycin 2020-0 Yes [id number] Apply to [facility] 1 % gel 9-17 affected ity of 00:00: area(s) 2 [place] 00 (two) Medical times Branch daily. clindamycin 2020-0 Yes [id number] Apply to Univers 1 % gel 9-17 affected ity of 00:00: area(s) 2 [place] 00 (two) Medical times Branch daily. clindamycin 2020-0 Yes [id number] Apply to Univers 1 % gel 9-17 affected ity of 00:00: area(s) 2 [place] 00 (two) Medical times Branch daily. clindamycin 2020-0 Yes [id number] Apply to Univers 1 % gel 9-17 affected ity of 00:00: area(s) 2 [place] 00 (two) Medical times Branch daily. clindamycin 2020-0 Yes [id number] Apply to Univers 1 % gel 9-17 affected ity of 00:00: area(s) 2 [place] 00 (two) Medical times Branch daily. clindamycin 2020-0 Yes [id number] Apply to Univers 1 % gel 9-17 affected ity of 00:00: area(s) 2 [place] 00 (two) Medical times Branch daily. clindamycin 2020-0 Yes [id number] Apply to Univers 1 % gel 9-17 affected ity of 00:00: area(s) 2 [place] 00 (two) Medical times Branch daily. clindamycin 2020-0 Yes [id number] Apply to Univers 1 % gel 9-17 affected ity of 00:00: area(s) 2 [place] 00 (two) Medical times Branch daily. clindamycin 2020-0 Yes [id number] Apply to Univers 1 % gel 9-17 affected ity of 00:00: area(s) 2 [place] 00 (two) Medical times Branch daily. clindamycin 2020-0 Yes [id number] Apply to Univers 1 % gel 9-17 affected ity of 00:00: area(s) 2 [place] 00 (two) Medical times Branch daily. clindamycin 2020-0 Yes [id number] Apply to Univers 1 % gel 9-17 affected ity of 00:00: area(s) 2 [place] 00 (two) Medical times Branch daily. clindamycin 2020-0 Yes [id number] Apply to Univers 1 % gel 9-17 affected ity of 00:00: area(s) 2 [place] 00 (two) Medical times Branch daily. fluticasone 2020-0 Yes [id number] 1{puff} Inhale 1 [facility] -salmeterol 8-06 Puff by [facility] (ADVAIR 00:00: mouth two of DISKUS) 00 times Medicin 500-50 daily. e MCG/DOSE inhaler fluticasone 2020-0 Yes [id number] 1{puff} Inhale 1 [facility] -salmeterol 8-06 Puff by Colle ge (ADVAIR 00:00: mouth two of DISKUS) 00 times Medicin 500-50 daily. e MCG/DOSE inhaler fluticasone 2020-0 Yes [id number] 1{puff} Inhale 1 [facility] -salmeterol 8-06 Puff by Colle ge (ADVAIR 00:00: mouth two of DISKUS) 00 times Medicin 500-50 daily. e MCG/DOSE inhaler fluticasone 2020-0 Yes [id number] 1{puff} Inhale 1 [facility] -salmeterol 8-06 Puff by Colle ge (ADVAIR 00:00: mouth two of DISKUS) 00 times Medicin 500-50 daily. e MCG/DOSE inhaler fluticasone 2020-0 Yes [id number] 1{puff} Inhale 1 [facility] -salmeterol 8-06 Puff by Colle ge (ADVAIR 00:00: mouth two of DISKUS) 00 times Medicin 500-50 daily. e MCG/DOSE inhaler fluticasone 2020-0 Yes [id number] 1{puff} Inhale 1 [facility] -salmeterol 8-06 Puff by Colle ge (ADVAIR 00:00: mouth two of DISKUS) 00 times Medicin 500-50 daily. e MCG/DOSE inhaler fluticasone 2020-0 Yes [id number] 1{puff} Inhale 1 [facility] -salmeterol 8-06 Puff by Colle ge (ADVAIR 00:00: mouth two of DISKUS) 00 times Medicin 500-50 daily. e MCG/DOSE inhaler fluticasone 2020-0 Yes [id number] 1{puff} Inhale 1 [facility] -salmeterol 8-06 Puff by Colle ge (ADVAIR 00:00: mouth two of DISKUS) 00 times Medicin 500-50 daily. e MCG/DOSE inhaler lamoTRIgine lamoTRIgine 2020-0 Yes HECTOR TAKE 2 UT 100 MG Oral 100 MG Oral 8-05 STORM M.D. TABLETS BY [facility] Tablet Tablet 00:00: MOUTH ans 00 BEDTIME Na 2020-0 2020- No [SUPREP] [facility] Sulfate-K 01-26 Take as Colleg e Sulfate-Mg 00:00: 00:00 directed. o f Sulf 00 :00 Medicin (SUPREP e BOWEL PREP KIT) 17.5-3.13-1 .6 GM/177ML SOLN Na 2019- No [SUPREP] [facility] Sulfate-K 01-26 Take as Colleg e Sulfate-Mg 00:00: 00:00 directed. o f Sulf 00 :00 Medicin (SUPREP e BOWEL PREP KIT) 17.5-3.13-1 .6 GM/177ML SOLN Ondansetron Ondansetron Yes YANELI Every 8 UT 4 MG Oral 4 MG Oral 7-10 VANESA hours as [facility] Tablet Tablet 00:00: N.P. needed for ans Disintegrat Disintegrat 00 nausea ing ing Acetaminoph Acetaminoph Yes YANELI 1 TAKE 1 UT en-Codeine en-Codeine 7-10 VANESA TABLET [facility] #3 300-30 #3 300-30 00:00: N.P. EVERY 6 ans MG Oral MG Oral 00 HOURS Tablet Tablet NEEDED FOR PAIN. 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 00:00: 00:00 of PACK 5 MG 00 :00 Medicin TABS e HYDROcodone 2019- No 1{tbl} 1 tablet, Univers -acetaminop 12-21 Oral, ity of hen (NORCO 06:15: 05:11 ONCE, 1 Tim as 5) 5-325 mg 00 :00 dose, Tue Med ical tablet 1 12/22/19 at [facility] h tablet 0115, DAVEY iohexol 2019- No 120mL 120 mL, Unive rs (OMNIPAQUE 12-2130 Intravenou it y of 350 05:45: 05:45 s, ONCE, 1 [place] BULK-150 00 :00 dose, Tue Medica l mL) 12/22/19 at Branch injection 0045, 120 mL Routine aspirin 2019- No 325mg 325 mg, Unive rs tablet 325 12-21-30 Oral, ity of mg 03:00: 03:34 ONCE, 1 [place] 00 :00 dose, Mon Medical 12/21/19 at Branch 2200, STAT methylPREDN methylPREDN 2019-0 Yes HOLGER PERAZA TAKE UT ISolone 4 ISolone 4 3-02 M.D. DIRECTED P hysici MG Oral MG Oral 00:00: ans Tablet Tablet 00 Therapy Therapy Pack Pack traMADol 50 2019-0 Yes [id number] 50mg Take 1 [facility] mg tablet 2-27 [id number] tablet by ity of 00:00: mouth [place] 00 every 6 Medical (six) Branch hours as needed for Pain (scale 4-6). traMADol 50 2020-0 Yes [id number] 50mg Take 1 [facility] mg tablet 2-27 [id number] tablet by ity of 00:00: mouth [place] 00 every 6 Medical (six) Branch hours as needed for Pain (scale 4-6). traMADol 50 2020-0 Yes [id number] 50mg Take 1 [facility] mg tablet 2-27 [id number] tablet by ity of 00:00: mouth [place] 00 every 6 Medical (six) Branch hours as needed for Pain (scale 4-6). traMADol 50 2020-0 Yes [id number] 50mg Take 1 [facility] mg tablet 2-27 [id number] tablet by ity of 00:00: mouth [place] 00 every 6 Medical (six) Branch hours as needed for Pain (scale 4-6). traMADol 50 2020-0 Yes [id number] 50mg Take 1 [facility] mg tablet 2-27 [id number] tablet by ity of 00:00: mouth [place] 00 every 6 Medical (six) Branch hours as needed for Pain (scale 4-6). traMADol 50 2020-0 Yes [id number] 50mg Take 1 [facility] mg tablet 2-27 [id number] tablet by ity of 00:00: mouth [place] 00 every 6 Medical (six) Branch hours as needed for Pain (scale 4-6). traMADol 50 2020-0 Yes [id number] 50mg Take 1 [facility] mg tablet 2-27 [id number] tablet by [facility] of 00:00: mouth [place] 00 every 6 Medical (six) Branch hours as needed for Pain (scale 4-6). traMADol 50 2020-0 Yes [id number] 50mg Take 1 [facility] mg tablet 2-27 [id number] tablet by ity of 00:00: mouth [place] 00 every 6 Medical (six) Branch hours as needed for Pain (scale 4-6). traMADol 50 2020-0 Yes [id number] 50mg Take 1 [facility] mg tablet 2- [id number] tablet by ity of 00:00: mouth [place] 00 every 6 Medical (six) Branch hours as needed for Pain (scale 4-6). traMADol 50 2020-0 Yes [id number] 50mg Take 1 [facility] mg tablet 2- [id number] tablet by ity of 00:00: mouth [place] 00 every 6 Medical (six) Branch hours as needed for Pain (scale 4-6). traMADol 50 2020-0 Yes [id number] 50mg Take 1 [facility] mg tablet 2- [id number] tablet by ity of 00:00: mouth [place] 00 every 6 Medical (six) Branch hours as needed for Pain (scale 4-6). traMADol 50 2020-0 Yes [id number] 50mg Take 1 [facility] mg tablet 2 [id number] tablet by ity of 00:00: mouth [place] 00 every 6 Medical (six) Branch hours as needed for Pain (scale 4-6). traMADol 50 2020-0 Yes [id number] 50mg Take 1 [facility] mg tablet 2 [id number] tablet by ity of 00:00: mouth [place] 00 every 6 Medical (six) Branch hours as needed for Pain (scale 4-6). traMADol 50 2020-0 Yes [id number] 50mg Take 1 [facility] mg tablet 2 [id number] tablet by ity of 00:00: mouth [place] 00 every 6 Medical (six) Branch hours as needed for Pain (scale 4-6). traMADol 50 2020-0 Yes [id number] 50mg Take 1 [facility] mg tablet 2 [id number] tablet by ity of 00:00: mouth [place] 00 every 6 Medical (six) Branch hours as needed for Pain (scale 4-6). traMADol 50 2020-0 Yes [id number] 50mg Take 1 [facility] mg tablet 2- [id number] tablet by ity of 00:00: mouth [place] 00 every 6 Medical (six) Branch hours as needed for Pain (scale 4-6). traMADol 50 2020-0 Yes [id number] 50mg Take 1 [facility] mg tablet 2-27 [id number] tablet by ity of 00:00: mouth [place] 00 every 6 Medical (six) Branch hours as needed for Pain (scale 4-6). traMADol 50 2020-0 Yes [id number] 50mg Take 1 [facility] mg tablet 2-27 [id number] tablet by ity of 00:00: mouth [place] 00 every 6 Medical (six) Branch hours as needed for Pain (scale 4-6). traMADol 50 2020-0 Yes [id number] 50mg Take 1 [facility] mg tablet 2-27 [id number] tablet by ity of 00:00: mouth [place] 00 every 6 Medical (six) Branch hours as needed for Pain (scale 4-6). traMADol 50 2020-0 Yes [id number] 50mg Take 1 [facility] mg tablet 2-27 [id number] tablet by ity of 00:00: mouth [place] 00 every 6 Medical (six) Branch hours as needed for Pain (scale 4-6). traMADol 50 2020-0 Yes [id number] 50mg Take 1 [facility] mg tablet 2-27 [id number] tablet by ity of 00:00: mouth [place] 00 every 6 Medical (six) Branch hours as needed for Pain (scale 4-6). traMADol 50 2020-0 Yes [id number] 50mg Take 1 [facility] mg tablet 2- [id number] tablet by ity of 00:00: mouth [place] 00 every 6 Medical (six) Branch hours as needed for Pain (scale 4-6). traMADol 50 2020-0 Yes [id number] 50mg Take 1 [facility] mg tablet 2-27 [id number] tablet by ity of 00:00: mouth [place] 00 every 6 Medical (six) Branch hours as needed for Pain (scale 4-6). traMADol 50 2020-0 Yes [id number] 50mg Take 1 [facility] mg tablet 2-27 [id number] tablet by ity of 00:00: mouth [place] 00 every 6 Medical (six) Branch hours as needed for Pain (scale 4-6). traMADol 50 2020-0 Yes [id number] 50mg Take 1 [facility] mg tablet 2-27 [id number] tablet by ity of 00:00: mouth [place] 00 every 6 Medical (six) Branch hours as needed for Pain (scale 4-6). traMADol 50 2020-0 Yes [id number] 50mg Take 1 [facility] mg tablet 2-27 [id number] tablet by ity of 00:00: mouth [place] 00 every 6 Medical (six) Branch hours as needed for Pain (scale 4-6). traMADol 50 2020-0 Yes [id number] 50mg Take 1 [facility] mg tablet 2-27 [id number] tablet by ity of 00:00: mouth [place] 00 every 6 Medical (six) Branch hours as needed for Pain (scale 4-6). traMADol 50 2020-0 Yes [id number] 50mg Take 1 [facility] mg tablet 2 [id number] tablet by ity of 00:00: mouth [place] 00 every 6 Medical (six) Branch hours as needed for Pain (scale 4-6). traMADol 50 2020-0 Yes [id number] 50mg Take 1 [facility] mg tablet 2 [id number] tablet by ity of 00:00: mouth [place] 00 every 6 Medical (six) Branch hours as needed for Pain (scale 4-6). traMADol 50 2020-0 Yes [id number] 50mg Take 1 [facility] mg tablet 2- [id number] tablet by ity of 00:00: mouth [place] 00 every 6 Medical (six) Branch hours as needed for Pain (scale 4-6). methocarbam 2020-0 2020- No 750mg Take 750 [facility] ol 2-27 11-19 mg by [place] (ROBAXIN) 00:00: 00:00 mouth four o f 750 MG 00 :00 times Medicin tablet daily. e methocarbam 2020-0 2020- No 750mg Take 750 [facility] ol 2-27 11-19 mg by [place] (ROBAXIN) 00:00: 00:00 mouth four o f 750 MG 00 :00 times Medicin tablet daily. e methocarbam 2020-0 2020- No [id number] 1500mg Take 2 [facility] ol 750 mg 2-27 03-03 [id number] tablets by i ty of tablet 00:00: 05:59 mouth 4 [place] 00 :00 (four) Medical times Branch daily for 4 days. 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 ondansetron 2020-0 Yes [id number] 4mg Take 1 [facility] 4 mg 1-10 tablet by ity of disintegrat 00:00: mouth [place] ing tablet 00 every 12 Medic al (twelve) Branch hours as needed for Nausea and Vomiting (N/V). ondansetron 2020-0 Yes [id number] 4mg Take 1 [facility] 4 mg 1-10 tablet by ity of disintegrat 00:00: mouth [place] ing tablet 00 every 12 Medic al (twelve) Branch hours as needed for Nausea and Vomiting (N/V). ondansetron 2020-0 Yes [id number] 4mg Take 1 [facility] 4 mg 1-10 tablet by ity of disintegrat 00:00: mouth [place] ing tablet 00 every 12 Medic al (twelve) Branch hours as needed for Nausea and Vomiting (N/V). ondansetron 2020-0 Yes [id number] 4mg Take 1 [facility] 4 mg 1-10 tablet by ity of disintegrat 00:00: mouth [place] ing tablet 00 every 12 Medic al (twelve) Branch hours as needed for Nausea and Vomiting (N/V). ondansetron 2020-0 Yes [id number] 4mg Take 1 [facility] 4 mg 1-10 tablet by ity of disintegrat 00:00: mouth [place] ing tablet 00 every 12 Medic al (twelve) Branch hours as needed for Nausea and Vomiting (N/V). ondansetron 2020-0 Yes [id number] 4mg Take 1 [facility] 4 mg 1-10 tablet by ity of disintegrat 00:00: mouth [place] ing tablet 00 every 12 Medic al (twelve) Branch hours as needed for Nausea and Vomiting (N/V). ondansetron 2020-0 Yes [id number] 4mg Take 1 [facility] 4 mg 1-10 tablet by ity of disintegrat 00:00: mouth [place] ing tablet 00 every 12 Medic al (twelve) Branch hours as needed for Nausea and Vomiting (N/V). ondansetron 2020-0 Yes [id number] 4mg Take 1 [facility] 4 mg 1-10 tablet by ity of disintegrat 00:00: mouth [place] ing tablet 00 every 12 Medic al (twelve) Branch hours as needed for Nausea and Vomiting (N/V). ondansetron 2020-0 Yes [id number] 4mg Take 1 [facility] 4 mg 1-10 tablet by ity of disintegrat 00:00: mouth [place] ing tablet 00 every 12 Medic al (twelve) Branch hours as needed for Nausea and Vomiting (N/V). ondansetron 2020-0 Yes [id number] 4mg Take 1 [facility] 4 mg 1-10 tablet by ity of disintegrat 00:00: mouth [place] ing tablet 00 every 12 Medic al (twelve) Branch hours as needed for Nausea and Vomiting (N/V). ondansetron 2020-0 Yes [id number] 4mg Take 1 [facility] 4 mg 1-10 tablet by ity of disintegrat 00:00: mouth [place] ing tablet 00 every 12 Medic al (twelve) Branch hours as needed for Nausea and Vomiting (N/V). ondansetron 2020-0 Yes [id number] 4mg Take 1 [facility] 4 mg 1-10 tablet by ity of disintegrat 00:00: mouth [place] ing tablet 00 every 12 Medic al (twelve) Branch hours as needed for Nausea and Vomiting (N/V). ondansetron 2020-0 Yes [id number] 4mg Take 1 [facility] 4 mg 1-10 tablet by ity of disintegrat 00:00: mouth [place] ing tablet 00 every 12 Medic al (twelve) Branch hours as needed for Nausea and Vomiting (N/V). ondansetron 2020-0 Yes [id number] 4mg Take 1 [facility] 4 mg 1-10 tablet by ity of disintegrat 00:00: mouth [place] ing tablet 00 every 12 Medic al (twelve) Branch hours as needed for Nausea and Vomiting (N/V). ondansetron 2020-0 Yes [id number] 4mg Take 1 [facility] 4 mg 1-10 tablet by ity of disintegrat 00:00: mouth [place] ing tablet 00 every 12 Medic al (twelve) Branch hours as needed for Nausea and Vomiting (N/V). ondansetron 2020-0 Yes [id number] 4mg Take 1 [facility] 4 mg 1-10 tablet by ity of disintegrat 00:00: mouth [place] ing tablet 00 every 12 Medic al (twelve) Branch hours as needed for Nausea and Vomiting (N/V). ondansetron 2020-0 Yes [id number] 4mg Take 1 [facility] 4 mg 1-10 tablet by ity of disintegrat 00:00: mouth [place] ing tablet 00 every 12 Medic al (twelve) Branch hours as needed for Nausea and Vomiting (N/V). ondansetron 2020-0 Yes [id number] 4mg Take 1 [facility] 4 mg 1-10 tablet by ity of disintegrat 00:00: mouth [place] ing tablet 00 every 12 Medic al (twelve) Branch hours as needed for Nausea and Vomiting (N/V). ondansetron 2020-0 Yes [id number] 4mg Take 1 [facility] 4 mg 1-10 tablet by ity of disintegrat 00:00: mouth [place] ing tablet 00 every 12 Medic al (twelve) Branch hours as needed for Nausea and Vomiting (N/V). ondansetron 2020-0 Yes [id number] 4mg Take 1 [facility] 4 mg 1-10 tablet by ity of disintegrat 00:00: mouth [place] ing tablet 00 every 12 Medic al (twelve) Branch hours as needed for Nausea and Vomiting (N/V). ondansetron 2020-0 Yes [id number] 4mg Take 1 [facility] 4 mg 1-10 tablet by ity of disintegrat 00:00: mouth [place] ing tablet 00 every 12 Medic al (twelve) Branch hours as needed for Nausea and Vomiting (N/V). ondansetron 2020-0 Yes [id number] 4mg Take 1 [facility] 4 mg 1-10 tablet by ity of disintegrat 00:00: mouth [place] ing tablet 00 every 12 Medic al (twelve) Branch hours as needed for Nausea and Vomiting (N/V). ondansetron 2020-0 Yes [id number] 4mg Take 1 [facility] 4 mg 1-10 tablet by ity of disintegrat 00:00: mouth [place] ing tablet 00 every 12 Medic al (twelve) Branch hours as needed for Nausea and Vomiting (N/V). ondansetron 2020-0 Yes [id number] 4mg Take 1 [facility] 4 mg 1-10 tablet by ity of disintegrat 00:00: mouth [place] ing tablet 00 every 12 Medic al (twelve) Branch hours as needed for Nausea and Vomiting (N/V). ondansetron 2020-0 Yes [id number] 4mg Take 1 [facility] 4 mg 1-10 tablet by ity of disintegrat 00:00: mouth [place] ing tablet 00 every 12 Medic al (twelve) Branch hours as needed for Nausea and Vomiting (N/V). ondansetron 2020-0 Yes [id number] 4mg Take 1 [facility] 4 mg 1-10 tablet by ity of disintegrat 00:00: mouth [place] ing tablet 00 every 12 Medic al (twelve) Branch hours as needed for Nausea and Vomiting (N/V). ondansetron 2020-0 Yes [id number] 4mg Take 1 [facility] 4 mg 1-10 tablet by ity of disintegrat 00:00: mouth [place] ing tablet 00 every 12 Medic al (twelve) Branch hours as needed for Nausea and Vomiting (N/V). ondansetron 2020-0 Yes [id number] 4mg Take 1 [facility] 4 mg 1-10 tablet by ity of disintegrat 00:00: mouth [place] ing tablet 00 every 12 Medic al (twelve) Branch hours as needed for Nausea and Vomiting (N/V). ondansetron 2020-0 Yes [id number] 4mg Take 1 [facility] 4 mg 1-10 tablet by ity of disintegrat 00:00: mouth [place] ing tablet 00 every 12 Medic al (twelve) Branch hours as needed for Nausea and Vomiting (N/V). ondansetron 2020-0 Yes [id number] 4mg Take 1 [facility] 4 mg 1-10 tablet by ity of disintegrat 00:00: mouth [place] ing tablet 00 every 12 Medic al (twelve) Branch hours as needed for Nausea and Vomiting (N/V). Pregabalin Pregabalin 2018-06 Yes ISAI Q0.3333D TAKE 1 UT 75 MG Oral 75 MG Oral 1-26 KAY CAPSULE 3 [facility] Capsule Capsule 00:00: SENIOR LABEL SPECIALIST TIMES ans 00 DAILY. Ibuprofen Ibuprofen 2018-06 Yes UT 200 MG Oral 200 MG Oral 1-11 P [facility]ici Tablet Tablet 00:00: ans 00 Fluticasone Fluticasone 2018-06 Yes CASTILL[place] Q0.5D INHALE ONE UT -Salmeterol -Salmeterol 0-16 CHITRA PUFF BY [facility] 500-50 500-50 00:00: M.D. MOUTH ans MCG/DOSE MCG/DOSE 00 TWICE A Inhalation Inhalation DAY Aerosol Aerosol Powder Powder Breath Breath Activated Activated CPAP CPAP Yes CASTILLO Please UT Continuous Continuous 9-16 CHITRA provide [facility] Positive Positive 00:00: M.D. patient an s Airway Airway 00 with all Pressure Pressure necessary CPAP supplies including mask (please fit), tubing, filters, etc. Good for ONE YEAR Lidocaine 5 Lidocaine 5 2018-0 Yes ROXANN APPLY 1 UT % External % External 02-02 JAMALYARIA PATCH TO [facility] Patch Patch 00:00: M.D. THE ans 00 AFFECTED AREA AND LEAVE IN PLACE FOR 12 HOURS, THEN REMOVE AND LEAVE OFF FOR 12 HOURS. Proventil Proventil 2018- Yes CASTILLO INHALE ONE UT HFA 108 (90 HFA 108 (90 12 CHITRA TO TWO [facility] Base) Base) 00:00: M.D. PUFFS BY ans MCG/ACT MCG/ACT 00 MOUTH Inhalation Inhalation EVERY 4 Aerosol Aerosol HOURS Solution Solution NEEDED Diclofenac Diclofenac Yes ROXANN APPLY 2 GM UT Sodium 1 % Sodium 1 % 01-29 JAMALYARIA OF GEL TO [facility] GEL GEL 00:00: M.D. AFFECTED ans 00 AREA 4 TIMES DAILY. DO NOT APPLY MORE THAN 8 GM DAILY TO ANY ONE AFFECTED AREA. Omeprazole Omeprazole 2018- Yes KOBE 1 QD TAKE 1 UT 40 MG Oral 40 MG Oral 01-23 OBONYANO CAPSULE [facility] Capsule Capsule 00:00: SENIOR LABEL SPECIALIST DAILY ans Delayed Delayed 00 Release Release Yes COREY HOBSON 1 QD TAKE 1 UT 1/20 1-20 1/20 1-20 724 SENIOR LABEL SPECIALIST TABLET Phy sici MG-MCG Oral MG-MCG Oral 00:00: DAILY. ans Tablet Tablet 00 Propranolol Propranolol Yes HECTOR TAKE ONE UT HCl - 20 MG HCl - 20 MG 7-08 STORM M.D. TABLET BY [facility] Oral Tablet Oral Tablet 00:00: MOUTH ans 00 TWICE A DAY NEEDED traZODone traZODone Yes HECTOR TAKE ONE UT HCl - 100 HCl - 100 7-08 STORM M.D. TABLET BY [facility] MG Oral MG Oral 00:00: MOUTH AT ans Tablet Tablet 00 BEDTIME Neurontin Neurontin 2018- Yes ALANA JITENDRA Q0.3333D TAKE 1 UT 800 MG Oral 800 MG Oral 7-08 M.D. TABLET 3 [facility] Tablet Tablet 00:00: TIMES ans 00 DAILY. Baclofen 20 Baclofen 20 Yes ALANA JITENDRA Q0.3333D TAKE 1 UT MG Oral MG Oral 7-08 M.D. TABLET 3 Physi ci Tablet Tablet 00:00: TIMES ans 00 DAILY NEEDED. SIMPONI 50 2017- Yes [id number] INJECT 1 [facility] mg/0.5 mL 4-10 PEN (50 st pen 00:00: MG) Hospita injector 00 SUBCUTANEO l USLY EVERY 28 DAYS. cetirizine Yes TAKE ONE [facility] (ZyrTEC) 10 2-[address] MG tablet 00:00: MOUTH [facility]osp[facility] 00 DAILY l hydrOXYzine Yes TAKE ONE [facility] (ATARAX) 25 2-[address] MG tablet 00:00: MOUTH [facility]osp[facility] 00 DAILY l ADVAIR 2016-06 Yes INHALE ONE Metho di DISKUS 1-[address] 500-50 00:00: MOUTH [facility]osp[facility] mcg/dose 00 TWICE A l DISKUS DAY buPROPion 2016-06 Yes 300mg QD Take 300 [facility] XL 0-[address] (WELLBUTRIN 13:19: mouth Hospi ta XL) 300 MG 10 daily. l 24 hr tablet L. 2016-06 Yes 1{tbl} QD Take 1 [facility] RHAMNOSUS 0-[address] GG/INULIN 13:19: mouth [facility]ospita (CULTURELLE 10 daily. l PROBIOTICS ORAL) traZODone 2016-06 Yes 100mg Q.5D Take 100 [facility] (DESYREL) 0-[address] 100 MG 13:19: mouth 2 Hospita tablet 10 (two) l times a day. mesalamine 2016-06 Yes 1200mg Q.25D Take 1,200 [facility] (LIALDA) 0-[address] 1.2 gram EC 13:19: mouth 4 [facility] tablet 10 (four) l times a day. norethindro 2016-06 Yes 1{tbl} QD Take 1 Me thodi ne-e.estrad 0-[address] iol-iron 13:19: mouth [facility]osp[facility] (LOESTRIN 10 daily. l 24 FE) 1 mg-20 mcg (24)/75 mg (4) per tablet mometasone Yes 2{spray QD 2 sprays [facility] (NASONEX) 4-10 } into each st 50 00:00: nostril Hospita mcg/actuati 00 daily. l on nasal spray albuterol Yes 1{puff} Q6H Inhale 1-2 [facility] (PROAIR 4-[address] HFA,PROVENT 00:00: every 6 [facility] [place] 00 (six) l HFA,VENTOLI hours as N HFA) 90 needed for mcg/actuati shortness on inhaler of breath. clonAZEPAM 2015-06 Yes [facility] (KlonoPIN) 2-10 st 0.5 MG 00:00: Hospita tablet 00 l gabapentin 2015-06 Yes 800mg Take 800 [facility] (NEURONTIN) 0-01 mg by [place] 800 MG 00:00: mouth 3 of tablet 00 times Medicin daily. e escitalopra Yes 20mg QD Take 20 mg [facility] m (LEXAPRO) 9-[address] 20 MG 00:00: daily. Hospita tablet 00 l acetaminoph Yes 1{tbl} Take 1 Tab [facility] en-codeine 8-19 by mouth ity o f (TYLENOL-CO 00:00: every 8 Tim as DEINE #3) 00 (eight) Medical 300-30 mg hours as Branch tablet needed for Pain (scale 4-6). acetaminoph Yes 1{tbl} Take 1 Tab [facility] en-codeine 8-19 by mouth ity o f (TYLENOL-CO 00:00: every 8 Tim as DEINE #3) 00 (eight) Medical 300-30 mg hours as Branch tablet needed for Pain (scale 4-6). acetaminoph Yes 1{tbl} Take 1 Tab [facility] en-codeine 8-19 by mouth ity o f (TYLENOL-CO 00:00: every 8 Tim as DEINE #3) 00 (eight) Medical 300-30 mg hours as Branch tablet needed for Pain (scale 4-6). acetaminoph Yes 1{tbl} Take 1 Tab [facility] en-codeine 8-19 by mouth ity o f (TYLENOL-CO 00:00: every 8 Tim as DEINE #3) 00 (eight) Medical 300-30 mg hours as Branch tablet needed for Pain (scale 4-6). acetaminoph Yes 1{tbl} Take 1 Tab [facility] en-codeine 8-19 by mouth ity o f (TYLENOL-CO 00:00: every 8 Tim as DEINE #3) 00 (eight) Medical 300-30 mg hours as Branch tablet needed for Pain (scale 4-6). acetaminoph Yes 1{tbl} Take 1 Tab [facility] en-codeine 8-19 by mouth ity o f (TYLENOL-CO 00:00: every 8 Tim as DEINE #3) 00 (eight) Medical 300-30 mg hours as Branch tablet needed for Pain (scale 4-6). acetaminoph Yes 1{tbl} Take 1 Tab [facility] en-codeine 8-19 by mouth ity o f (TYLENOL-CO 00:00: every 8 Tim as DEINE #3) 00 (eight) Medical 300-30 mg hours as Branch tablet needed for Pain (scale 4-6). acetaminoph Yes 1{tbl} Take 1 Tab [facility] en-codeine 8-19 by mouth ity o f (TYLENOL-CO 00:00: every 8 Tim as DEINE #3) 00 (eight) Medical 300-30 mg hours as Branch tablet needed for Pain (scale 4-6). acetaminoph Yes 1{tbl} Take 1 Tab [facility] en-codeine 8-19 by mouth ity o f (TYLENOL-CO 00:00: every 8 Tim as DEINE #3) 00 (eight) Medical 300-30 mg hours as Branch tablet needed for Pain (scale 4-6). acetaminoph Yes 1{tbl} Take 1 Tab [facility] en-codeine 8-19 by mouth ity o f (TYLENOL-CO 00:00: every 8 Tim as DEINE #3) 00 (eight) Medical 300-30 mg hours as Branch tablet needed for Pain (scale 4-6). acetaminoph Yes 1{tbl} Take 1 Tab [facility] en-codeine 8-19 by mouth ity o f (TYLENOL-CO 00:00: every 8 Tim as DEINE #3) 00 (eight) Medical 300-30 mg hours as Branch tablet needed for Pain (scale 4-6). acetaminoph Yes 1{tbl} Take 1 Tab [facility] en-codeine 8-19 by mouth ity o f (TYLENOL-CO 00:00: every 8 Tim as DEINE #3) 00 (eight) Medical 300-30 mg hours as Branch tablet needed for Pain (scale 4-6). acetaminoph Yes 1{tbl} Take 1 Tab [facility] en-codeine 8-19 by mouth ity o f (TYLENOL-CO 00:00: every 8 Tim as DEINE #3) 00 (eight) Medical 300-30 mg hours as Branch tablet needed for Pain (scale 4-6). acetaminoph Yes 1{tbl} Take 1 Tab [facility] en-codeine 8-19 by mouth ity o f (TYLENOL-CO 00:00: every 8 Tim as DEINE #3) 00 (eight) Medical 300-30 mg hours as Branch tablet needed for Pain (scale 4-6). acetaminoph Yes 1{tbl} Take 1 Tab [facility] en-codeine 8-19 by mouth ity o f (TYLENOL-CO 00:00: every 8 Tim as DEINE #3) 00 (eight) Medical 300-30 mg hours as Branch tablet needed for Pain (scale 4-6). acetaminoph Yes 1{tbl} Take 1 Tab [facility] en-codeine 8-19 by mouth ity o f (TYLENOL-CO 00:00: every 8 Tim as DEINE #3) 00 (eight) Medical 300-30 mg hours as Branch tablet needed for Pain (scale 4-6). acetaminoph Yes 1{tbl} Take 1 Tab [facility] en-codeine 8-19 by mouth ity o f (TYLENOL-CO 00:00: every 8 Tim as DEINE #3) 00 (eight) Medical 300-30 mg hours as Branch tablet needed for Pain (scale 4-6). acetaminoph Yes 1{tbl} Take 1 Tab [facility] en-codeine 8-19 by mouth ity o f (TYLENOL-CO 00:00: every 8 Tim as DEINE #3) 00 (eight) Medical 300-30 mg hours as Branch tablet needed for Pain (scale 4-6). acetaminoph Yes 1{tbl} Take 1 Tab [facility] en-codeine 8-19 by mouth ity o f (TYLENOL-CO 00:00: every 8 Tim as DEINE #3) 00 (eight) Medical 300-30 mg hours as Branch tablet needed for Pain (scale 4-6). acetaminoph Yes 1{tbl} Take 1 Tab [facility] en-codeine 8-19 by mouth ity o f (TYLENOL-CO 00:00: every 8 Tim as DEINE #3) 00 (eight) Medical 300-30 mg hours as Branch tablet needed for Pain (scale 4-6). acetaminoph Yes 1{tbl} Take 1 Tab [facility] en-codeine 8-19 by mouth ity o f (TYLENOL-CO 00:00: every 8 Tim as DEINE #3) 00 (eight) Medical 300-30 mg hours as Branch tablet needed for Pain (scale 4-6). acetaminoph Yes 1{tbl} Take 1 Tab [facility] en-codeine 8-19 by mouth ity o f (TYLENOL-CO 00:00: every 8 Tim as DEINE #3) 00 (eight) Medical 300-30 mg hours as Branch tablet needed for Pain (scale 4-6). acetaminoph Yes 1{tbl} Take 1 Tab [facility] en-codeine 8-19 by mouth ity o f (TYLENOL-CO 00:00: every 8 Tim as DEINE #3) 00 (eight) Medical 300-30 mg hours as Branch tablet needed for Pain (scale 4-6). acetaminoph Yes 1{tbl} Take 1 Tab [facility] en-codeine 8-19 by mouth ity o f (TYLENOL-CO 00:00: every 8 Tim as DEINE #3) 00 (eight) Medical 300-30 mg hours as Branch tablet needed for Pain (scale 4-6). acetaminoph Yes 1{tbl} Take 1 Tab [facility] en-codeine 8-19 by mouth ity o f (TYLENOL-CO 00:00: every 8 Tim as DEINE #3) 00 (eight) Medical 300-30 mg hours as Branch tablet needed for Pain (scale 4-6). acetaminoph Yes 1{tbl} Take 1 Tab [facility] en-codeine 8-19 by mouth ity o f (TYLENOL-CO 00:00: every 8 Tim as DEINE #3) 00 (eight) Medical 300-30 mg hours as Branch tablet needed for Pain (scale 4-6). acetaminoph Yes 1{tbl} Take 1 Tab [facility] en-codeine 8-19 by mouth ity o f (TYLENOL-CO 00:00: every 8 Tim as DEINE #3) 00 (eight) Medical 300-30 mg hours as Branch tablet needed for Pain (scale 4-6). acetaminoph Yes 1{tbl} Take 1 Tab [facility] en-codeine 8-19 by mouth ity o f (TYLENOL-CO 00:00: every 8 Tim as DEINE #3) 00 (eight) Medical 300-30 mg hours as Branch tablet needed for Pain (scale 4-6). acetaminoph Yes 1{tbl} Take 1 Tab [facility] en-codeine 8-19 by mouth ity o f (TYLENOL-CO 00:00: every 8 Tim as DEINE #3) 00 (eight) Medical 300-30 mg hours as Branch tablet needed for Pain (scale 4-6). acetaminoph Yes 1{tbl} Take 1 Tab [facility] en-codeine 8-19 by mouth ity o f (TYLENOL-CO 00:00: every 8 Tim as DEINE #3) 00 (eight) Medical 300-30 mg hours as Branch tablet needed for Pain (scale 4-6). acetaminoph Yes 1{tbl} Take 1 Tab [facility] en-codeine 8-19 by mouth ity o f (TYLENOL-CO 00:00: every 8 Tim as DEINE #3) 00 (eight) Medical 300-30 mg hours as Branch tablet needed for Pain (scale 4-6). LOESTRIN Yes [id number] 1{tbl} Take 1 Tab [facility] (MICROGESTI 4-02 by mouth ity of N FE 00:00: daily. [place] . Medical 28,) 1.5 Branch mg-30 mcg (21)/75 mg (7) tablet LOESTRIN Yes [id number] 1{tbl} Take 1 Tab [facility] (MICROGESTI 4-02 by mouth ity of N FE 00:00: daily. [place] . Medical 28,) 1.5 Branch mg-30 mcg (21)/75 mg (7) tablet LOESTRIN Yes [id number] 1{tbl} Take 1 Tab [facility] (MICROGESTI 4-02 by mouth ity of N FE 00:00: daily. [place] ,) 1.5 Branch mg-30 mcg (21)/75 mg (7) tablet LOESTRIN FE Yes [id number] 1{tbl} Take 1 Tab [facility] (MICROGESTI 4-02 by mouth ity of N FE 00:00: daily. [place] ,) 1.5 Branch mg-30 mcg (21)/75 mg (7) tablet LOESTRIN FE Yes [id number] 1{tbl} Take 1 Tab [facility] (MICROGESTI 4-02 by mouth ity of N FE 00:00: daily. [place] ,) 1.5 Branch mg-30 mcg (21)/75 mg (7) tablet LOESTRIN FE Yes [id number] 1{tbl} Take 1 Tab [facility] (MICROGESTI 4-02 by mouth ity of N FE 00:00: daily. [place] ,) 1.5 Branch mg-30 mcg (21)/75 mg (7) tablet LOESTRIN FE Yes [id number] 1{tbl} Take 1 Tab [facility] (MICROGESTI 4-02 by mouth ity of N FE 00:00: daily. [place] ,) 1.5 Branch mg-30 mcg (21)/75 mg (7) tablet LOESTRIN FE Yes [id number] 1{tbl} Take 1 Tab [facility] (MICROGESTI 4-02 by mouth ity of N FE 00:00: daily. [place] ,) 1.5 Branch mg-30 mcg (21)/75 mg (7) tablet LOESTRIN FE Yes [id number] 1{tbl} Take 1 Tab [facility] (MICROGESTI 4-02 by mouth ity of N FE 00:00: daily. [place] ,) 1.5 Branch mg-30 mcg (21)/75 mg (7) tablet LOESTRIN FE Yes [id number] 1{tbl} Take 1 Tab [facility] (MICROGESTI 4-02 by mouth ity of N FE 00:00: daily. [place] ,) 1.5 Branch mg-30 mcg (21)/75 mg (7) tablet LOESTRIN FE Yes [id number] 1{tbl} Take 1 Tab [facility] (MICROGESTI 4-02 by mouth ity of N FE 00:00: daily. [place] ,) 1.5 Branch mg-30 mcg (21)/75 mg (7) tablet LOESTRIN FE Yes [id number] 1{tbl} Take 1 Tab [facility] (MICROGESTI 4-02 by mouth ity of N FE 00:00: daily. [place] ,) 1.5 Branch mg-30 mcg (21)/75 mg (7) tablet LOESTRIN FE Yes [id number] 1{tbl} Take 1 Tab [facility] (MICROGESTI 4-02 by mouth ity of N FE 00:00: daily. [place] ,) 1.5 Branch mg-30 mcg (21)/75 mg (7) tablet LOESTRIN FE Yes [id number] 1{tbl} Take 1 Tab [facility] (MICROGESTI 4-02 by mouth ity of N FE 00:00: daily. [place] [facility] ,) 1.5 Branch mg-30 mcg (21)/75 mg (7) tablet LOESTRIN FE Yes [id number] 1{tbl} Take 1 Tab [facility] (MICROGESTI 4-02 by mouth ity of N FE 00:00: daily. [place] ,) 1.5 Branch mg-30 mcg (21)/75 mg (7) tablet LOESTRIN FE Yes [id number] 1{tbl} Take 1 Tab [facility] (MICROGESTI 4-02 by mouth ity of N FE 00:00: daily. [place] ,) 1.5 Branch mg-30 mcg (21)/75 mg (7) tablet LOESTRIN FE Yes [id number] 1{tbl} Take 1 Tab [facility] (MICROGESTI 4-02 by mouth ity of N FE 00:00: daily. [place] ,) 1.5 Branch mg-30 mcg (21)/75 mg (7) tablet LOESTRIN FE Yes [id number] 1{tbl} Take 1 Tab [facility] (MICROGESTI 4-02 by mouth ity of N FE 00:00: daily. [place] ,) 1.5 Branch mg-30 mcg (21)/75 mg (7) tablet LOESTRIN FE Yes [id number] 1{tbl} Take 1 Tab [facility] (MICROGESTI 4-02 by mouth ity of N FE 00:00: daily. [place] ,) 1.5 Branch mg-30 mcg (21)/75 mg (7) tablet LOESTRIN FE Yes [id number] 1{tbl} Take 1 Tab [facility] (MICROGESTI 4-02 by mouth ity of N FE 00:00: daily. [place] ,) 1.5 Branch mg-30 mcg (21)/75 mg (7) tablet LOESTRIN FE Yes [id number] 1{tbl} Take 1 Tab [facility] (MICROGESTI 4-02 by mouth ity of N FE 00:00: daily. [place] ,) 1.5 Branch mg-30 mcg (21)/75 mg (7) tablet LOESTRIN FE Yes [id number] 1{tbl} Take 1 Tab [facility] (MICROGESTI 4-02 by mouth ity of N FE 00:00: daily. [place] ,) 1.5 Branch mg-30 mcg (21)/75 mg (7) tablet LOESTRIN FE Yes [id number] 1{tbl} Take 1 Tab [facility] (MICROGESTI 4-02 by mouth ity of N FE 00:00: daily. [place] ,) 1.5 Branch mg-30 mcg (21)/75 mg (7) tablet LOESTRIN FE Yes [id number] 1{tbl} Take 1 Tab [facility] (MICROGESTI 4-02 by mouth ity of N FE 00:00: daily. [place] ,) 1.5 Branch mg-30 mcg (21)/75 mg (7) tablet LOESTRIN FE Yes [id number] 1{tbl} Take 1 Tab [facility] (MICROGESTI 4-02 by mouth ity of N FE 00:00: daily. [place] ,) 1.5 Branch mg-30 mcg (21)/75 mg (7) tablet LOESTRIN FE Yes [id number] 1{tbl} Take 1 Tab [facility] (MICROGESTI 4-02 by mouth ity of N FE 00:00: daily. [place] ,) 1.5 Branch mg-30 mcg (21)/75 mg (7) tablet LOESTRIN FE Yes [id number] 1{tbl} Take 1 Tab [facility] (MICROGESTI 4-02 by mouth ity of N FE 00:00: daily. [place] ,) 1.5 Branch mg-30 mcg (21)/75 mg (7) tablet LOESTRIN FE Yes [id number] 1{tbl} Take 1 Tab [facility] (MICROGESTI 4-02 by mouth ity of N FE 00:00: daily. [place] ,) 1.5 Branch mg-30 mcg (21)/75 mg (7) tablet LOESTRIN FE Yes [id number] 1{tbl} Take 1 Tab [facility] (MICROGESTI 4-02 by mouth ity of N FE 00:00: daily. [place] ,) 1.5 Branch mg-30 mcg (21)/75 mg (7) tablet LOESTRIN FE Yes [id number] 1{tbl} Take 1 Tab [facility] (MICROGESTI 4-02 by mouth ity of N FE 00:00: daily. [place] ,) 1.5 Branch mg-30 mcg (21)/75 mg (7) tablet LOESTRIN FE Yes [id number] 1{tbl} Take 1 Tab [facility] (MICROGESTI 4-02 by mouth ity of N FE 00:00: daily. [place] 1.5/30, 00 Medical 28,) 1.5 Branch mg-30 mcg (21)/75 mg (7) tablet BUPROPION 2013-06 Yes [id number] 450mg Take 450 [facility] HCL 2-11 mg by ity of (WELLBUTRIN 14:24: mouth [place] ORAL) 03 daily. [facility] BUPROPION 2013-06 Yes [id number] 450mg Take 450 [facility] HCL 2-11 mg by ity of (WELLBUTRIN 14:24: mouth [place] ORAL) 03 daily. [facility] BUPROPION 2013-06 Yes [id number] 450mg Take 450 [facility] HCL 2-11 mg by ity of (WELLBUTRIN 14:24: mouth [place] ORAL) 03 daily. [facility] BUPROPION 2013-06 Yes [id number] 450mg Take 450 [facility] HCL 2-11 mg by ity of (WELLBUTRIN 14:24: mouth [place] ORAL) 03 daily. [facility] BUPROPION 2013-06 Yes [id number] 450mg Take 450 [facility] HCL 2-11 mg by ity of (WELLBUTRIN 14:24: mouth [place] ORAL) 03 daily. [facility] BUPROPION 2013-06 Yes [id number] 450mg Take 450 [facility] HCL 2-11 mg by ity of (WELLBUTRIN 14:24: mouth [place] ORAL) 03 daily. [facility] BUPROPION 2013-06 Yes [id number] 450mg Take 450 [facility] HCL 2-11 mg by ity of (WELLBUTRIN 14:24: mouth [place] ORAL) 03 daily. [facility] BUPROPION 2013-06 Yes [id number] 450mg Take 450 [facility] HCL 2-11 mg by ity of (WELLBUTRIN 14:24: mouth [place] ORAL) 03 daily. [facility] traZODONE 2013-06 Yes 100mg Take 100 Uni vers (DESYREL) 2-11 mg by ity of 100 mg 14:24: mouth at [place] tablet 02 bedtime. [facility] traZODONE 2013-06 Yes 100mg Take 100 Uni vers (DESYREL) 2-11 mg by ity of 100 mg 14:24: mouth at [place] tablet 02 bedtime. [facility] traZODONE 2013-06 Yes 100mg Take 100 [facility] vers (DESYREL) 2-11 mg by ity of 100 mg 14:24: mouth at [place] tablet 02 bedtime. [facility] traZODONE 2013-06 Yes 100mg Take 100 Uni vers (DESYREL) 2-11 mg by ity of 100 mg 14:24: mouth at [place] tablet 02 bedtime. [facility] Branch traZODONE 2013-06 Yes 100mg Take 100 Uni vers (DESYREL) 2-11 mg by ity of 100 mg 14:24: mouth at [place] tablet 02 bedtime. [facility] Branch traZODONE 2013-06 Yes 100mg Take 100 Uni vers (DESYREL) 2-11 mg by ity of 100 mg 14:24: mouth at [place] tablet 02 bedtime. [facility] Branch traZODONE 2013-06 Yes 100mg Take 100 Uni vers (DESYREL) 2-11 mg by ity of 100 mg 14:24: mouth at [place] tablet 02 bedtime. [facility] Branch traZODONE 2013-06 Yes 100mg Take 100 Uni vers (DESYREL) 2-11 mg by ity of 100 mg 14:24: mouth at [place] tablet 02 bedtime. [facility] Branch BUPROPION 2013-06 Yes [id number] 450mg Take 450 [facility] HCL 2-11 mg by ity of (WELLBUTRIN 08:24: mouth [place] ORAL) 03 daily. [facility] Branch BUPROPION 2013-06 Yes [id number] 450mg Take 450 [facility] HCL 2-11 mg by ity of (WELLBUTRIN 08:24: mouth [place] ORAL) 03 daily. [facility] Branch traZODONE 2013-06 Yes 100mg Take 100 Uni vers (DESYREL) 2-11 mg by ity of 100 mg 08:24: mouth at [place] tablet 02 bedtime. [facility] Branch traZODONE 2013-06 Yes 100mg Take 100 Uni vers (DESYREL) 2-11 mg by ity of 100 mg 08:24: mouth at [place] tablet 02 bedtime. Medical Branch hydrOXYzine 0 Yes 25mg Take 1 Tab [facility] (ATARAX) 25 6-03 by mouth 3 [facility] MG tablet 00:00: times of 00 daily as Medicin needed for e Itching. hydrOXYzine 2012-0 Yes 25mg Take 1 Tab [facility] (ATARAX) 25 6-03 by mouth 3 [facility] MG tablet 00:00: times of 00 daily as Medicin needed for e Itching. hydrOXYzine 2012-0 Yes 25mg Take 1 Tab [facility] (ATARAX) 25 6-03 by mouth 3 [facility] MG tablet 00:00: times of 00 daily as Medicin needed for e Itching. hydrOXYzine Yes 25mg Take 1 Tab [facility] (ATARAX) 25 6-03 by mouth [facility] MG tablet 00:00: times of 00 daily as Medicin needed for e Itching. hydrOXYzine Yes 25mg Take 1 Tab [facility] (ATARAX) 25 6-03 by mouth 3 [facility] MG tablet 00:00: times of 00 daily as Medicin needed for e Itching. hydrOXYzine Yes 25mg Take 1 Tab [facility] (ATARAX) 25 6-03 by mouth 3 [facility] MG tablet 00:00: times of 00 daily as Medicin needed for e Itching. hydrOXYzine Yes 25mg Take 1 Tab [facility] (ATARAX) 25 6-03 by mouth 3 [facility] MG tablet 00:00: times of 00 daily as Medicin needed for e Itching. hydrOXYzine Yes 25mg Take 1 Tab [facility] (ATARAX) 25 6-03 by mouth 3 [facility] MG tablet 00:00: times of 00 daily as Medicin needed for e Itching. hydrOXYzine Yes 25mg Take 1 Tab [facility] (ATARAX) 25 6-03 by mouth 3 [facility] MG tablet 00:00: times of 00 daily as Medicin needed for e Itching. hydrOXYzine Yes 25mg Take 1 Tab [facility] (ATARAX) 25 6-03 by mouth 3 [facility] MG tablet 00:00: times of 00 daily as Medicin needed for e Itching. albuterol Yes [id number] 1{puff} Inhale 1-2 [facility] HFA 3-02 6 Puffs by [place] (PROVENTIL 00:00: mouth of HFA, 00 every 6 Medicin VENTOLIN hours as e HFA) 108 needed for (90 BASE) Wheezing. MCG/ACT inhaler albuterol Yes [id number] 1{puff} Inhale 1-2 [facility] HFA 3-02 6 Puffs by [place] (PROVENTIL 00:00: mouth of HFA, 00 every 6 Medicin VENTOLIN hours as e HFA) 108 needed for (90 BASE) Wheezing. MCG/ACT inhaler albuterol Yes [id number] 1{puff} Inhale 1-2 [facility] HFA 3-02 6 Puffs [facility] [employer] (PROVENTIL 00:00: mouth of HFA, 00 every 6 Medicin VENTOLIN hours as e HFA) 108 needed for (90 BASE) Wheezing. MCG/ACT inhaler albuterol Yes [id number] 1{puff} Inhale 1-2 [facility] HFA 3-02 6 Puffs [facility] [employer] (PROVENTIL 00:00: mouth of HFA, 00 every 6 Medicin VENTOLIN hours as e HFA) 108 needed for (90 BASE) Wheezing. MCG/ACT inhaler albuterol Yes [id number] 1{puff} Inhale 1-2 [facility] HFA 3-02 6 Puffs by [place] (PROVENTIL 00:00: mouth of HFA, 00 every 6 Medicin VENTOLIN hours as e HFA) 108 needed for (90 BASE) Wheezing. MCG/ACT inhaler Immunizations Ordered Filled Date Status Comments Source Immunization Name Immunization Name Pneumococcal 2022-04-05 Completed [facility] ge 20-Valent Conjugate 00:00:00 of Me dicine Vaccine Pneumococcal 2022-04-05 Completed [facility] ge 20-Valent Conjugate 00:00:00 of Me dicine Vaccine Pneumococcal 2022-04-05 Completed [facility] ge 20-Valent Conjugate 00:00:00 of Me dicine Vaccine Pneumococcal 2022-04-05 Completed [facility] ge 20-Valent Conjugate 00:00:00 of Me dicine Vaccine HPV 9-valent 2022-01-16 Completed [facility] ge 00:00:00 of Medicine HPV 9-valent 2022-01-16 Completed [facility] ge 00:00:00 of Medicine HPV 9-valent 2022-01-16 Completed [facility] ge 00:00:00 of Medicine HPV 9-valent 2022-01-16 Completed [facility] ge 00:00:00 of Medicine HPV 9-valent 2022-01-16 Completed [facility] ge 00:00:00 of Medicine HPV 9-valent 2022-01-16 Completed [facility] ge 00:00:00 of Medicine HPV 9-valent 2022-01-16 Completed [facility] ge 00:00:00 of Medicine HPV 9-valent 2022-01-16 Completed [facility] Colle ge 00:00:00 of Medicine Moderna .25 2021-09-08 Completed [facility] ege BOOSTER SARS-CoV-2 00:00:00 of Med icine Vaccination Moderna .25 2021-09-08 Completed [facility] BOOSTER SARS-CoV-2 00:00:00 of Med icine Vaccination Moderna .25 2021-09-08 Completed [facility] [place] ege BOOSTER SARS-CoV-2 00:00:00 of Med icine Vaccination Moderna .25 2021-09-08 Completed [facility] [place] [facility]ge BOOSTER SARS-CoV-2 00:00:00 of Med icine Vaccination Moderna .25 2021-09-08 Completed [facility] BOOSTER SARS-CoV-2 00:00:00 of Med icine Vaccination Moderna .25 2021-09-08 Completed [facility] BOOSTER SARS-CoV-2 00:00:00 of Med icine Vaccination Moderna .25 2021-09-08 Completed [facility] [place] BOOSTER SARS-CoV-2 00:00:00 of Med icine Vaccination Moderna .25 2021-09-08 Completed [facility] [place] ege BOOSTER SARS-CoV-2 00:00:00 of Med icine Vaccination Moderna .25 2021-09-08 Completed [facility] [place] [facility]ge BOOSTER SARS-CoV-2 00:00:00 of Med icine Vaccination Moderna .25 2021-09-08 Completed [facility] [place] [facility] BOOSTER SARS-CoV-2 00:00:00 of Med icine Vaccination Moderna .25 2021-09-08 Completed [facility] BOOSTER SARS-CoV-2 00:00:00 of Med icine Vaccination Moderna .25 2021-09-08 Completed [facility] [place]ge BOOSTER SARS-CoV-2 00:00:00 of Med icine Vaccination Moderna .25 2021-09-08 Completed [facility] [place] [facility] BOOSTER SARS-CoV-2 00:00:00 of Med icine Vaccination Moderna .25 2021-09-08 Completed [facility] [place] [facility]ge BOOSTER SARS-CoV-2 00:00:00 of Med icine Vaccination Influenza Quad-PF 2021-05-03 Completed [facility] 00:00:00 of Medicine Moderna .[facility] 2021-05-03 Completed [facility] [place] ege BOOSTER SARS-CoV-2 00:00:00 of Med icine Vaccination Influenza Quad-PF 2021-05-03 Completed [facility] 00:00:00 of Medicine Moderna .25 2021-05-03 Completed [facility] [place] BOOSTER SARS-CoV-2 00:00:00 of Med icine Vaccination Influenza Quad-PF 2021-05-03 Completed [facility] 00:00:00 of Medicine Moderna .25 2021-05-03 Completed [facility] [place] BOOSTER SARS-CoV-2 00:00:00 of Med icine Vaccination Influenza Quad-PF 2021-05-03 Completed [facility] 00:00:00 of Medicine Moderna .25 2021-05-03 Completed [facility] [place] [facility]ge BOOSTER SARS-CoV-2 00:00:00 of Med icine Vaccination Influenza Quad-PF 2021-05-03 Completed [facility] 00:00:00 of Medicine Moderna .25 2021-05-03 Completed [facility] [place] [facility]ge BOOSTER SARS-CoV-2 00:00:00 of Med icine Vaccination Influenza Quad-PF 2021-05-03 Completed [facility] 00:00:00 of Medicine Moderna .25 2021-05-03 Completed [facility] [place] [facility]ge BOOSTER SARS-CoV-2 00:00:00 of Med icine Vaccination Influenza Quad-PF 2021-05-03 Completed [facility] 00:00:00 of Medicine Moderna .25 2021-05-03 Completed [facility] [facility]ge BOOSTER SARS-CoV-2 00:00:00 of Med icine Vaccination Influenza Quad-PF 2021-05-03 Completed [facility] 00:00:00 of Medicine Moderna .25 2021-05-03 Completed [facility] [place] [facility] BOOSTER SARS-CoV-2 00:00:00 of Med icine Vaccination Influenza Quad-PF 2021-05-03 Completed [facility] 00:00:00 of Medicine Moderna .25 2021-05-03 Completed [facility] BOOSTER SARS-CoV-2 00:00:00 of Med icine Vaccination Influenza Quad-PF 2021-05-03 Completed [facility] 00:00:00 of Medicine Moderna .25 2021-05-03 Completed [facility] [place] [facility] Booster Sars-COV-2 00:00:00 of Med icine Vaccination Influenza Quad-PF 2021-05-03 Completed [facility] 00:00:00 of Medicine Moderna .25 2021-05-03 Completed [facility] [facility] BOOSTER SARS-CoV-2 00:00:00 of Med icine Vaccination Influenza Quad-PF 2021-05-03 Completed [facility] 00:00:00 of Medicine Moderna .25 2021-05-03 Completed [facility] [place] [facility] BOOSTER SARS-CoV-2 00:00:00 of Med icine Vaccination Influenza Quad-PF 2021-05-03 Completed [facility] 00:00:00 of Medicine Moderna .25 2021-05-03 Completed [facility]ge BOOSTER SARS-CoV-2 00:00:00 of Med icine Vaccination Influenza Quad-PF 2021-05-03 Completed [facility] 00:00:00 of Medicine Moderna .25 2021-05-03 Completed [facility] ege BOOSTER SARS-CoV-2 00:00:00 of Med icine Vaccination Influenza Quad-PF 2021-05-03 Completed [facility] 00:00:00 of Medicine Moderna .25 2021-05-03 Completed [facility] [place] [facility] BOOSTER SARS-CoV-2 00:00:00 of Med icine Vaccination Influenza Quad-PF 2021-05-03 Completed [facility] 00:00:00 of Medicine Moderna .25 2021-05-03 Completed [facility] BOOSTER SARS-CoV-2 00:00:00 of Med icine Vaccination Influenza Quad-PF 2021-05-03 Completed [facility] 00:00:00 of Medicine Moderna .25 2021-05-03 Completed [facility] BOOSTER SARS-CoV-2 00:00:00 of Med icine Vaccination Moderna SARS-CoV-2 2020-08-17 Completed [facility] Vaccination 00:00:00 of Medicine Moderna SARS-CoV-2 2020-08-17 Completed [facility] Vaccination 00:00:00 of Medicine Moderna .5 2020-08-17 Completed [facility] ge SARS-CoV-2 00:00:00 of Medicine Vaccination Moderna .5 2020-08-17 Completed [facility] ge SARS-CoV-2 00:00:00 of Medicine Vaccination Moderna .5mL 2020-08-17 Completed [facility] Colle ge SARS-CoV-2 00:00:00 of Medicine Vaccination Moderna .5mL 2020-08-17 Completed [facility] Col[facility] ge SARS-CoV-2 00:00:00 of Medicine Vaccination Moderna .5mL 2020-08-17 Completed [facility] Colle ge SARS-CoV-2 00:00:00 of Medicine Vaccination Moderna .5mL 2020-08-17 Completed [facility] ge SARS-CoV-2 00:00:00 of Medicine Vaccination Moderna .5mL 2020-08-17 Completed [facility] ge SARS-CoV-2 00:00:00 of Medicine Vaccination Moderna SARS-CoV-2 2020-08-17 Completed [facility] Vaccination 00:00:00 of Medicine Moderna SARS-CoV-2 2020-08-17 Completed [facility] Vaccination 00:00:00 of Medicine Moderna SARS-CoV-2 2020-08-17 Completed [facility] Vaccination 00:00:00 of Medicine Moderna SARS-CoV-2 2020-08-17 Completed [facility] Vaccination 00:00:00 of Medicine Moderna SARS-CoV-2 2020-08-17 Completed [facility] Vaccination 00:00:00 of Medicine Moderna SARS-CoV-2 2020-08-17 Completed [facility] Vaccination 00:00:00 of Medicine Moderna SARS-CoV-2 2020-08-17 Completed [facility] Vaccination 00:00:00 of Medicine Moderna SARS-CoV-2 2020-08-17 Completed [facility] Vaccination 00:00:00 of Medicine Moderna SARS-CoV-2 2020-08-17 [facility] Moderna SARS-CoV-2 2020-08-17 [facility] Medicine Moderna SARS-CoV-2 2020-08-17 [facility] Vacc[facility]:00:00 of Medicine Moderna SARS-CoV-2 2020-08-17 [facility] Vacc[facility] 00:00:00 of Medicine Moderna SARS-CoV-2 2020-07-16 [facility]00 of Medicine Moderna SARS-CoV-2 2020-07-16 [facility] Vacc[facility]:00:00 of Medicine Moderna .5mL 2020-07-16 Completed [facility] Col[facility] ge SARS-CoV-2 00:00:00 of Medicine Vaccination Moderna .5mL 2020-07-16 Completed [facility] Colle ge SARS-CoV-2 00:00:00 of Medicine Vaccination Moderna .5mL 2020-07-16 Completed [facility] Colle ge SARS-CoV-2 00:00:00 of Medicine Vaccination Moderna .5mL 2020-07-16 Completed [facility] ge SARS-CoV-2 00:00:00 of Medicine Vaccination Moderna .5mL 2020-07-16 Completed [facility] Colle ge SARS-CoV-2 00:00:00 of Medicine Vaccination Moderna .5mL 2020-07-16 Completed [facility] Colle ge SARS-CoV-2 00:00:00 of Medicine Vaccination Moderna .5mL 2020-07-16 Completed [facility] ge SARS-CoV-2 00:00:00 of Medicine Vaccination Moderna SARS-CoV-2 2020-07-16 [facility] Medicine Moderna SARS-CoV-2 2020-07-16 [facility] Vacc[facility] 00:00:00 of Medicine Moderna SARS-CoV-2 2020-07-16 [facility] Vacc[facility] 00:00:00 of Medicine Moderna SARS-CoV-2 2020-07-16 [facility]:00 of Medicine Moderna SARS-CoV-2 2020-07-16 [facility]:00 of Medicine Moderna SARS-CoV-2 2020-07-16 [facility]:00:00 of Medicine Moderna SARS-CoV-2 2020-07-16 [facility]:00 of Medicine Moderna SARS-CoV-2 2020-07-16 [facility] Vacc[facility] 00:00:00 of Medicine Moderna SARS-CoV-2 2020-07-16 Completed [facility] [employer] Vaccination 00:00:00 of Medicine Moderna SARS-CoV-2 2020-07-16 Completed [facility] [employer] Vaccination 00:00:00 of Medicine Moderna SARS-CoV-2 2020-07-16 [facility]:00:00 of Medicine Moderna SARS-CoV-2 2020-07-16 [facility]:00 of Medicine Influenza Quad-PF 2020-05-12 Completed [facility] 00:00:00 of Medicine Influenza Quad-PF 2020-05-12 Completed [facility] 00:00:00 of Medicine Influenza Quad-PF 2020-05-12 Completed [facility] 00:00:00 of Medicine Influenza Quad-PF 2020-05-12 Completed [facility] 00:00:00 of Medicine Influenza Quad-PF 2020-05-12 Completed [facility] 00:00:00 of Medicine Influenza Quad-PF 2020-05-12 Completed [facility] 00:00:00 of Medicine Influenza Quad-PF 2020-05-12 Completed [facility] 00:00:00 of Medicine Influenza Quad-PF 2020-05-12 Completed [facility] 00:00:00 of Medicine Influenza Quad-PF 2020-05-12 Completed [facility] 00:00:00 of Medicine Influenza Quad-PF 2020-05-12 Completed [facility] 00:00:00 of Medicine Influenza Quad-PF 2020-05-12 Completed [facility] 00:00:00 of Medicine Influenza Quad-PF 2020-05-12 Completed [facility] 00:00:00 of Medicine Influenza Quad-PF 2020-05-12 Completed [facility] 00:00:00 of Medicine Influenza Quad-PF 2020-05-12 Completed [facility] 00:00:00 of Medicine Influenza Quad-PF 2020-05-12 Completed [facility] 00:00:00 of Medicine Influenza Quad-PF 2020-05-12 Completed [facility] 00:00:00 of Medicine Influenza Quad-PF 2020-05-12 Completed [facility] 00:00:00 of Medicine Influenza Quad-PF 2020-05-12 Completed [facility] 00:00:00 of Medicine Influenza Quad-PF 2020-05-12 Completed [facility] 00:00:00 of Medicine Influenza Quad-PF 2020-05-12 Completed [facility] 00:00:00 of Medicine Influenza Quad-PF 2020-05-12 Completed [facility] 00:00:00 of Medicine Influenza Quad-PF 2020-05-12 Completed [facility] 00:00:00 of Medicine Influenza Quad-PF 2020-05-12 Completed [facility] 00:00:00 of Medicine Influenza Quad-PF 2020-05-12 Completed [facility] 00:00:00 of Medicine Influenza Quad-PF 2016-04-17 Completed [facility] 00:00:00 of Medicine Influenza Quad-PF 2016-04-17 Completed [facility] 00:00:00 of Medicine Influenza Quad-PF 2016-04-17 Completed [facility] 00:00:00 of Medicine Influenza Quad-PF 2016-04-17 Completed [facility] 00:00:00 of Medicine Influenza Quad-PF 2016-04-17 Completed [facility] 00:00:00 of Medicine Influenza Quad-PF 2016-04-17 Completed [facility] 00:00:00 of Medicine Influenza Quad-PF 2016-04-17 Completed [facility] 00:00:00 of Medicine Influenza Quad-PF 2016-04-17 Completed [facility] 00:00:00 of Medicine Influenza Quad-PF 2016-04-17 Completed [facility] 00:00:00 of Medicine Influenza Quad-PF 2016-04-17 Completed [facility] 00:00:00 of Medicine Influenza Quad-PF 2016-04-17 Completed [facility] 00:00:00 of Medicine Influenza Quad-PF 2016-04-17 Completed [facility] 00:00:00 of Medicine Influenza Quad-PF 2016-04-17 Completed [facility] 00:00:00 of Medicine Influenza Quad-PF 2016-04-17 Completed [facility] 00:00:00 of Medicine Influenza Quad-PF 2016-04-17 Completed [facility] 00:00:00 of Medicine Influenza Quad-PF 2016-04-17 Completed [facility] 00:00:00 of Medicine Influenza Quad-PF 2016-04-17 Completed [facility] 00:00:00 of Medicine Influenza Quad-PF 2016-04-17 Completed [facility] 00:00:00 of Medicine Influenza Quad-PF 2016-04-17 Completed [facility] 00:00:00 of Medicine Influenza Quad-PF 2016-04-17 Completed [facility] 00:00:00 of Medicine Influenza Quad-PF 2016-04-17 Completed [facility] 00:00:00 of Medicine FLUZONE QUAD PF 2016-04-17 Completed [facility] Tdap 2015-10-02 Completed [facility] 00:00:00 of Medicine Tdap 2015-10-02 Completed [facility] 00:00:00 of Medicine Tdap 2015-10-02 Completed [facility] 00:00:00 of Medicine Tdap 2015-10-02 Completed [facility] 00:00:00 of Medicine Tdap 2015-10-02 Completed [employer] 00:00:00 of Medicine Tdap 2015-10-02 Completed [facility] 00:00:00 of Medicine Tdap 2015-10-02 Completed [facility] 00:00:00 of Medicine Tdap 2015-10-02 Completed [facility] 00:00:00 of Medicine Tdap 2015-10-02 Completed [employer] 00:00:00 of Medicine Tdap 2015-10-02 Completed [employer] 00:00:00 of Medicine Tdap 2015-10-02 Completed [facility] 00:00:00 of Medicine Tdap 2015-10-02 Completed [employer] 00:00:00 of Medicine Tdap 2015-10-02 Completed [facility] 00:00:00 of Medicine Tdap 2015-10-02 Completed [facility] 00:00:00 of Medicine Tdap 2015-10-02 Completed [facility] 00:00:00 of Medicine Tdap 2015-10-02 Completed [facility] 00:00:00 of Medicine Tdap 2015-10-02 Completed [facility] 00:00:00 of Medicine Tdap 2015-10-02 Completed [facility] 00:00:00 of Medicine Tdap 2015-10-02 Completed [facility] 00:00:00 of Medicine Tdap 2015-10-02 Completed [facility] 00:00:00 of Medicine Tdap 2015-10-02 Completed [employer] 00:00:00 of Medicine Tdap 2015-10-02 Completed [facility] 00:00:00 of Medicine Tdap 2015-10-02 Completed [facility] 00:00:00 of Medicine Tdap 2015-10-02 Completed [employer] 00:00:00 of Medicine Pneumococcal 2015-04-13 Completed [employer] [facility] 00:00:00 of Medicine Influenza (whole) 2015-04-13 Completed [employer] 00:00:00 of Medicine Pneumococcal 2015-04-13 Completed [employer] 00:00:00 of Medicine Influenza (whole) 2015-04-13 Completed [employer] 00:00:00 of Medicine Pneumococcal 2015-04-13 Completed [employer] [facility] [employer] [facility] 00:00:00 of Medicine Influenza (whole) 2015-04-13 Completed [employer] 00:00:00 of Medicine Pneumococcal 2015-04-13 Completed [facility] 00:00:00 of Medicine Influenza (whole) 2015-04-13 Completed [employer] 00:00:00 of Medicine Pneumococcal 2015-04-13 Completed [employer] [facility] 00:00:00 of Medicine Influenza (whole) 2015-04-13 Completed [facility] 00:00:00 of Medicine Pneumococcal 2015-04-13 Completed [facility] 00:00:00 of Medicine Influenza (whole) 2015-04-13 Completed [facility] 00:00:00 of Medicine Pneumococcal 2015-04-13 Completed [employer] [facility] 00:00:00 of Medicine Influenza (whole) 2015-04-13 Completed [facility] 00:00:00 of Medicine Pneumococcal 2015-04-13 Completed [employer] [facility] 00:00:00 of Medicine Influenza (whole) 2015-04-13 Completed [facility] 00:00:00 of Medicine Pneumococcal 2015-04-13 Completed [facility] 00:00:00 of Medicine Influenza (whole) 2015-04-13 Completed [facility] 00:00:00 of Medicine Pneumococcal 2015-04-13 Completed [employer] [facility] 00:00:00 of Medicine Influenza (whole) 2015-04-13 Completed [facility] 00:00:00 of Medicine Pneumococcal 2015-04-13 Completed [employer] [facility] 00:00:00 of Medicine Influenza (whole) 2015-04-13 Completed [facility] 00:00:00 of Medicine Pneumococcal 2015-04-13 Completed [employer] [facility] 00:00:00 of Medicine Influenza (whole) 2015-04-13 Completed [facility] 00:00:00 of Medicine Pneumococcal 2015-04-13 Completed [facility] 00:00:00 of Medicine Influenza (whole) 2015-04-13 Completed [facility] 00:00:00 of Medicine Pneumococcal 2015-04-13 Completed [facility] 00:00:00 of Medicine Influenza (whole) 2015-04-13 Completed [facility] 00:00:00 of Medicine Pneumococcal 2015-04-13 Completed [facility] 00:00:00 of Medicine Influenza (whole) 2015-04-13 Completed [facility] 00:00:00 of Medicine Pneumococcal 2015-04-13 Completed [employer] [facility] 00:00:00 of Medicine Influenza (whole) 2015-04-13 Completed [facility] 00:00:00 of Medicine Pneumococcal 2015-04-13 Completed [facility] 00:00:00 of Medicine Influenza (whole) 2015-04-13 [facility] Pneumococcal 2015-04-13 Completed [facility] 00:00:00 of Medicine Influenza (whole) 2015-04-13 Completed [facility] 00:00:00 of Medicine Pneumococcal 2015-04-13 Completed [facility] 00:00:00 of Medicine Influenza (whole) 2015-04-13 [facility] Pneumococcal 2015-04-13 Completed [employer] [facility] 00:00:00 of Medicine Influenza (whole) 2015-04-13 Completed [employer] 00:00:00 of Medicine Pneumococcal 2015-04-13 Completed [employer] [facility] 00:00:00 of Medicine Influenza (whole) 2015-04-13 Completed [facility] 00:00:00 of Medicine Pneumococcal 2015-04-13 Completed [facility] 00:00:00 of Medicine Influenza (whole) 2015-04-13 Completed [facility] 00:00:00 of Medicine Pneumococcal 2015-04-13 Completed [facility] 00:00:00 of Medicine Influenza (whole) 2015-04-13 Completed [facility] 00:00:00 of Medicine Pneumococcal 2015-04-13 Completed [facility] 00:00:00 of Medicine Influenza (whole) 2015-04-13 Completed [facility] 00:00:00 of Medicine Tdap 2015-01-14 Completed [facility] 00:00:00 of Medicine Tdap 2015-01-14 Completed [facility] 00:00:00 of Medicine Tdap 2015-01-14 Completed [facility] 00:00:00 of Medicine Tdap 2015-01-14 Completed [facility] 00:00:00 of Medicine Tdap 2015-01-14 Completed [facility] 00:00:00 of Medicine Tdap 2015-01-14 Completed [facility] 00:00:00 of Medicine Tdap 2015-01-14 Completed [facility] 00:00:00 of Medicine Tdap 2015-01-14 Completed [facility] 00:00:00 of Medicine Tdap 2015-01-14 Completed [facility] 00:00:00 of Medicine Tdap 2015-01-14 Completed [facility] 00:00:00 of Medicine Tdap 2015-01-14 Completed [facility] 00:00:00 of Medicine Tdap 2015-01-14 Completed [facility] 00:00:00 of Medicine Tdap 2015-01-14 Completed [facility] 00:00:00 of Medicine Tdap 2015-01-14 Completed [facility] 00:00:00 of Medicine Tdap 2015-01-14 Completed [facility] 00:00:00 of Medicine Tdap 2015-01-14 Completed [facility] 00:00:00 of Medicine Tdap 2015-01-14 Completed [facility] 00:00:00 of Medicine Tdap 2015-01-14 Completed [facility] 00:00:00 of Medicine Tdap 2015-01-14 Completed [facility] 00:00:00 of Medicine Tdap 2015-01-14 Completed [facility] 00:00:00 of Medicine Tdap 2015-01-14 Completed [facility] 00:00:00 of Medicine Tdap 2015-01-14 Completed [facility] 00:00:00 of Medicine Tdap 2015-01-14 Completed [facility] 00:00:00 of Medicine Tdap 2015-01-14 Completed [facility] 00:00:00 of Medicine Hep A/Hep B 2012-07-17 Completed [employer] 00:00:00 of Medicine Hep A/Hep B 2012-07-17 Completed [employer] [facility] 00:00:00 of Medicine Hep A/Hep B 2012-07-17 Completed [facility] 00:00:00 of Medicine Hep A/Hep B 2012-07-17 Completed [employer] 00:00:00 of Medicine Hep A/Hep B 2012-07-17 Completed [employer] 00:00:00 of Medicine Hep A/Hep B 2012-07-17 Completed [facility] 00:00:00 of Medicine Hep A/Hep B 2012-07-17 Completed [employer] 00:00:00 of Medicine Hep A/Hep B 2012-07-17 Completed [employer] 00:00:00 of Medicine Hep A/Hep B 2012-07-17 Completed [facility] 00:00:00 of Medicine Hep A/Hep B 2012-07-17 Completed [employer] 00:00:00 of Medicine Hep A/Hep B 2012-07-17 Completed [employer] 00:00:00 of Medicine Hep A/Hep B 2012-07-17 Completed [employer] 00:00:00 of Medicine Hep A/Hep B 2012-07-17 Completed [employer] 00:00:00 of Medicine Hep A/Hep B 2012-07-17 Completed [facility] 00:00:00 of Medicine Hep A/Hep B 2012-07-17 Completed [employer] 00:00:00 of Medicine Hep A/Hep B 2012-07-17 Completed [facility] 00:00:00 of Medicine Hep A/Hep B 2012-07-17 Completed [facility] 00:00:00 of Medicine Hep A/Hep B 2012-07-17 Completed [facility] 00:00:00 of Medicine Hep A/Hep B 2012-07-17 Completed [facility] 00:00:00 of Medicine Hep A/Hep B 2012-07-17 Completed [facility] 00:00:00 of Medicine Hep A/Hep B 2012-07-17 Completed [employer] [facility] 00:00:00 of Medicine Hep A/Hep B 2012-07-17 Completed [employer] [facility] 00:00:00 of Medicine Hep A/Hep B 2012-07-17 Completed [employer] [facility] 00:00:00 of Medicine Hep A/Hep B 2012-07-17 Completed [employer] [facility] 00:00:00 of Medicine Hep A/Hep B 2012-02-15 Completed [facility] 00:00:00 of Medicine Hep A/Hep B 2012-02-15 Completed [facility] 00:00:00 of Medicine Hep A/Hep B 2012-02-15 Completed [facility] 00:00:00 of Medicine Hep A/Hep B 2012-02-15 Completed [employer] [facility] 00:00:00 of Medicine Hep A/Hep B 2012-02-15 Completed [employer] [facility] 00:00:00 of Medicine Hep A/Hep B 2012-02-15 Completed [facility] 00:00:00 of Medicine Hep A/Hep B 2012-02-15 Completed [facility] 00:00:00 of Medicine Hep A/Hep B 2012-02-15 Completed [facility] 00:00:00 of Medicine Hep A/Hep B 2012-02-15 Completed [employer] [facility] 00:00:00 of Medicine Hep A/Hep B 2012-02-15 Completed [facility] 00:00:00 of Medicine Hep A/Hep B 2012-02-15 Completed [employer] [facility] 00:00:00 of Medicine Hep A/Hep B 2012-02-15 Completed [employer] [facility] 00:00:00 of Medicine Hep A/Hep B 2012-02-15 Completed [employer] [facility] 00:00:00 of Medicine Hep A/Hep B 2012-02-15 Completed [facility] 00:00:00 of Medicine Hep A/Hep B 2012-02-15 Completed [facility] 00:00:00 of Medicine Hep A/Hep B 2012-02-15 Completed [facility] 00:00:00 of Medicine Hep A/Hep B 2012-02-15 Completed [facility] 00:00:00 of Medicine Hep A/Hep B 2012-02-15 Completed [employer] [facility] 00:00:00 of Medicine Hep A/Hep B 2012-02-15 Completed [facility] 00:00:00 of Medicine Hep A/Hep B 2012-02-15 Completed [facility] 00:00:00 of Medicine Hep A/Hep B 2012-02-15 Completed [facility] 00:00:00 of Medicine Hep A/Hep B 2012-02-15 Completed [facility] 00:00:00 of Medicine Hep A/Hep B 2012-02-15 Completed [facility] 00:00:00 of Medicine Hep A/Hep B 2012-02-15 Completed [facility] 00:00:00 of Medicine Hep A[facility] 2011-12-31 [facility] 2011-12-31 Completed [facility] 00:00:00 of Medicine Hep A/Hep B 2011-12-31 [facility] T[facility] 2011-12-31 Completed [facility] 00:00:00 of Medicine Hep A/Hep B 2011-12-31 Completed [facility] 00:00:00 of Medicine Tdap 2011-12-31 Completed [facility] 00:00:00 of Medicine Hep A/Hep B 2011-12-31 [facility] T[facility] 2011-12-31 Completed [facility] 00:00:00 of Medicine Hep A/Hep B 2011-12-31 [facility] T[facility] 2011-12-31 Completed [facility] 00:00:00 of Medicine Hep A/Hep B 2011-12-31 Completed [facility] 00:[facility]:00 of Medicine Tdap 2011-12-31 Completed [facility] 00:00:00 of Medicine Hep A/Hep B 2011-12-31 [facility] T[facility] 2011-12-31 Completed [facility] 00:00:00 of Medicine Hep A/Hep B 2011-12-31 [facility] Td[facility] 2011-12-31 Completed [facility] 00:00:00 of Medicine Hep A/Hep B 2011-12-31 Completed [facility] 00:00:00 of Medicine Tdap 2011-12-31 Completed [facility] 00:00:00 of Medicine Hep A/Hep B 2011-12-31 Completed [facility] 00:00:00 of Medicine Tdap 2011-12-31 Completed [facility] 00:00:00 of Medicine Hep A/Hep B 2011-12-31 Completed [facility] 00:00:00 of Medicine Tdap 2011-12-31 Completed [facility] 00:00:00 of Medicine Hep A/Hep B 2011-12-31 Completed [facility] 00:00:00 of Medicine Tdap 2011-12-31 Completed [facility] 00:00:00 of Medicine Hep A/Hep B 2011-12-31 Completed [facility] 00:00:00 of Medicine Tdap 2011-12-31 Completed [facility] 00:00:00 of Medicine Hep A/Hep B 2011-12-31 [facility] T[facility] 2011-12-31 Completed [facility] 00:00:00 of Medicine Hep A/Hep B 2011-12-31 Completed [facility] 00:00:00 of Medicine Tdap 2011-12-31 Completed [facility] 00:00:00 of Medicine Hep A/Hep B 2011-12-31 [facility] T[facility] 2011-12-31 Completed [facility] 00:00:00 of Medicine Hep A/Hep B 2011-12-31 [facility] Tdap 2011-12-31 Completed [facility] 00:00:00 of Medicine Hep A/Hep B 2011-12-31 Completed [facility] 00:00:00 of Medicine Tdap 2011-12-31 Completed [facility] 00:00:00 of Medicine Hep A/Hep B 2011-12-31 [facility] Tdap 2011-12-31 Completed [facility] 00:00:00 of Medicine Hep A/Hep B 2011-12-31 [facility] Hep A/Hep B 2011-12-31 Completed [facility] 00:00:00 of Medicine Tdap 2011-12-31 Completed [facility] 00:00:00 of Medicine Tdap 2011-12-31 Completed [facility] 00:00:00 of Medicine Hep A/Hep B 2011-12-31 Completed [facility] 00:00:00 of Medicine Tdap 2011-12-31 Completed [facility] 00:00:00 of Medicine Hep A/Hep B 2011-12-31 Completed [facility] 00:00:00 of Medicine Tdap 2011-12-31 Completed [facility] 00:00:00 of Medicine Hep A/Hep B 2011-12-31 Completed [facility] 00:00:00 of Medicine Tdap 2011-12-31 Completed [facility] 00:00:00 of Medicine PPD Test 2011-12-28 Completed [facility] 00:00:00 of Medicine PPD Test 2011-12-28 Completed [facility] 00:00:00 of Medicine PPD Test 2011-12-28 Completed [facility] 00:00:00 of Medicine PPD Test 2011-12-28 Completed [facility] 00:00:00 of Medicine PPD Test 2011-12-28 Completed [facility] 00:00:00 of Medicine PPD Test 2011-12-28 Completed [facility] 00:00:00 of Medicine PPD Test 2011-12-28 Completed [facility] 00:00:00 of Medicine PPD Test 2011-12-28 Completed [facility] 00:00:00 of Medicine PPD Test 2011-12-28 Completed [facility] 00:00:00 of Medicine PPD Test 2011-12-28 Completed [facility] 00:00:00 of Medicine PPD Test 2011-12-28 Completed [facility] 00:00:00 of Medicine PPD Test 2011-12-28 Completed [facility] 00:00:00 of Medicine PPD Test 2011-12-28 Completed [facility] 00:00:00 of Medicine PPD Test 2011-12-28 Completed [facility] 00:00:00 of Medicine PPD Test 2011-12-28 Completed [facility] 00:00:00 of Medicine PPD Test 2011-12-28 Completed [facility] 00:00:00 of Medicine PPD Test 2011-12-28 Completed [facility] 00:00:00 of Medicine PPD Test 2011-12-28 Completed [facility] 00:00:00 of Medicine PPD Test 2011-12-28 Completed [facility] 00:00:00 of Medicine PPD Test 2011-12-28 Completed [facility] 00:00:00 of Medicine PPD Test 2011-12-28 Completed [facility] 00:00:00 of Medicine PPD Test 2011-12-28 Completed [facility] 00:00:00 of Medicine PPD Test 2011-12-28 Completed [facility] 00:00:00 of Medicine PPD Test 2011-12-28 Completed [facility] 00:00:00 of Medicine Td 2011-10-16 Completed [facility] 00[facility]00 [facility] Td 2011-10-16 Completed [facility] 00:00:00 [facility] Td 2011-10-16 Completed [facility] 00:00:00 [facility] Td 2011-10-16 Completed [facility] 00:00:00 [facility] Td 2011-10-16 Completed [facility] 00:00:00 [facility] Td 2011-10-16 Completed [facility] 00:00:00 [facility] Td 2011-10-16 Completed [facility] 00:00:00 [facility] Td 2011-10-16 Completed [facility] 00:00:00 [facility] Td 2011-10-16 Completed [facility] 00:00:00 [facility] Td 2011-10-16 Completed [facility] 00:00:00 [facility] Td 2011-10-16 Completed [facility] 00:00:00 [facility] Td 2011-10-16 Completed [facility] 00:00:00 [facility] Td 2011-10-16 Completed [facility] 00:00:00 [facility] Td 2011-10-16 Completed [facility] 00:00:00 [facility] Td 2011-10-16 Completed [facility] 00:00:00 [facility] Td 2011-10-16 Completed [facility] 00:00:00 [facility] Td 2011-10-16 Completed [facility] 00:00:00 [facility] Td 2011-10-16 Completed [facility] 00:00:00 [facility] Td 2011-10-16 Completed [facility] 00:00:00 [facility] Td 2011-10-16 Completed [facility] 00:00:00 [facility] TD, NOS 2011-10-16 Completed [facility] 00:00:00 [facility] Td 2011-10-16 Completed [facility] 00:00:00 [facility] TD, NOS 2011-10-16 Completed [facility] 00:00:00 [facility] TD, NOS 2011-10-16 Completed [facility] 00:00:00 [facility] TD, NOS 2011-10-16 Completed [facility] 00:00:00 [facility] TD, NOS 2011-10-16 Completed [facility] 00[facility]00:00 [facility] TD, NOS 2011-10-16 Completed [facility] 00:00:00 [facility] TD, NOS 2011-10-16 Completed [facility] 00:00:00 [facility] TD, NOS 2011-10-16 Completed [facility] 00:00:00 [facility] TD, NOS 2011-10-16 Completed [facility] 00:00:00 [facility] TD, NOS 2011-10-16 Completed [facility] 00:00:00 [facility] Td 2011-10-16 Completed [employer] 00:00:00 of Medicine Td 2011-10-16 Completed [employer] 00:00:00 of Medicine Td 2011-10-16 Completed [facility] 00:00:00 of Medicine Td 2011-10-16 Completed [facility] 00:00:00 of Medicine Td 2011-10-16 Completed [facility] 00:00:00 of Medicine Td 2011-10-16 Completed [employer] 00:00:00 of Medicine Td 2011-10-16 Completed [facility] 00:00:00 of Medicine Td 2011-10-16 Completed [facility] 00:00:00 of Medicine Td 2011-10-16 Completed [employer] 00:00:00 of Medicine Td 2011-10-16 Completed [facility] 00:00:00 of Medicine Td 2011-10-16 Completed [employer] 00:00:00 of Medicine Td 2011-10-16 Completed [employer] 00:00:00 of Medicine Td 2011-10-16 Completed [employer] 00:00:00 of Medicine Td 2011-10-16 Completed [facility] 00:00:00 of Medicine Td 2011-10-16 Completed [facility] 00:00:00 of Medicine Td 2011-10-16 Completed [facility] 00:00:00 of Medicine Td 2011-10-16 Completed [facility] 00:00:00 of Medicine Td 2011-10-16 Completed [facility] 00:00:00 of Medicine Td 2011-10-16 Completed [facility] 00:00:00 of Medicine Td 2011-10-16 Completed [facility] 00:00:00 of Medicine Td 2011-10-16 Completed [facility] 00:00:00 of Medicine Tdap Unknown Completed [facility] Sign[facility] Vital Name Observation Time Observation Value Comments Source HEIGHT 2022-03-08 175.3 cm 13:09:00 WEIGHT 2022-03-08 121.564 kg 13:09:00 HEIGHT 2021-12-13 175.3 cm 14:57:00 WEIGHT 2021-12-13 127.007 kg 14:57:00 HEIGHT 2020-02-10 175.3 cm 00:00:00 WEIGHT 2020-02-10 182.89 kg 00:00:00 HEIGHT 2022-06-20 175.3 cm 06:24:00 WEIGHT 2022-06-20 112.401 kg 06:24:00 HEIGHT 2022-06-12 175.3 cm 12:17:00 WEIGHT 2022-06-12 115.214 kg 12:17:00 HEIGHT 2022-06-20 175.3 cm 06:24:00 WEIGHT 2022-06-20 112.401 kg 06:24:00 HEIGHT 2022-06-12 175.3 cm 12:17:00 WEIGHT 2022-06-12 115.214 kg 12:17:00 HEIGHT 2022-06-20 175.3 cm 06:24:00 WEIGHT 2022-06-20 112.401 kg 06:24:00 HEIGHT 2022-06-12 175.3 cm 12:17:00 WEIGHT 2022-06-12 115.214 kg 12:17:00 HEIGHT 2022-06-19 175.3 cm 17:28:00 WEIGHT 2022-06-19 112.4 kg 17:28:00 HEIGHT 2022-06-19 175.3 cm 17:28:00 WEIGHT 2022-06-19 112.4 kg 17:28:00 Body temperature 2022-06-15 36.78 [employer] 22:38:00 [facility] Body height 2022-06-15 175.3 cm [facility] 22:38:00 [facility] Body weight 2022-06-15 114.76 kg [facility] 22:38:00 [facility] BMI 2022-06-15 37.36 kg/m2 [facility] 22:38:00 [facility] Systolic blood 2022-06-11 113 mm[Hg] [facility] pressure 19:02:00 [facility] Diastolic blood 2022-06-11 66 mm[Hg] [place] [facility] pressure 19:02:00 [facility] Heart rate 2022-06-11 84 /min [facility] 19:02:00 [facility] Body height 2022-06-11 175.3 cm [facility] 19:02:00 [facility] Body weight 2022-06-11 117.482 kg [facility] 19:02:00 [facility] BMI 2022-06-11 38.25 kg/m2 [facility] 19:02:00 [facility] Oxygen saturation 2022-06-11 98 /min [facility] Arterial blood 19:02:00 [facility] by Pulse oximetry [place] HEIGHT 2022-05-07 175.3 cm 11:45:00 WEIGHT 2022-05-07 114.397 kg 11:45:00 HEIGHT 2022-05-02 175.3 cm 12:17:00 WEIGHT 2022-05-02 162.388 kg 12:17:00 HEIGHT 2022-05-07 175.3 cm 11:45:00 WEIGHT 2022-05-07 114.397 kg 11:45:00 HEIGHT 2022-05-02 175.3 cm 12:17:00 WEIGHT 2022-05-02 162.388 kg 12:17:00 Systolic blood 2022-04-30 122 mm[Hg] [facility] pressure 15:17:00 of Medicine Diastolic blood 2022-04-30 76 mm[Hg] [facility] pressure 15:17:00 of Medicine Heart rate 2022-04-30 76 /min [facility] 15:17:00 of Medicine Body height 2022-04-30 175.3 cm [facility] 15:17:00 of Medicine Body weight 2022-04-30 118.389 kg [facility] 15:17:00 of Medicine BMI 2022-04-30 38.54 kg/m2 [facility] 15:17:00 of Medicine Systolic blood 2022-04-24 122 mm[Hg] [facility] pressure 18:12:00 of Medicine Diastolic blood 2022-04-24 83 mm[Hg] [facility] pressure 18:12:00 of Medicine Heart rate 2022-04-24 73 /min [facility] 18:12:00 of Medicine Body height 2022-04-24 175.3 cm [facility] 18:12:00 of Medicine Body weight 2022-04-24 118.389 kg [facility] 18:12:00 of Medicine BMI 2022-04-24 38.54 kg/m2 [facility] 18:12:00 of Medicine Systolic blood 2022-04-05 131 mm[Hg] [facility] pressure 19:28:00 of Medicine Diastolic blood 2022-04-05 81 mm[Hg] [facility] pressure 19:28:00 of Medicine Heart rate 2022-04-05 65 /min [facility] 19:28:00 of Medicine Body temperature 2022-04-05 36.67 Debra [facility] 19:28:00 of Medicine Respiratory rate 2022-04-05 16 /min [facility] 19:28:00 of Medicine Body height 2022-04-05 175.3 cm [facility] 19:28:00 of Medicine Body weight 2022-04-05 118.389 kg [facility] 19:28:00 of Medicine BMI 2022-04-05 38.54 kg/m2 [facility] 19:28:00 of Medicine Oxygen saturation 2022-04-05 98 /min [facility] in Arterial blood 19:28:00 of Medicin e by Pulse oximetry Systolic blood 2022-04-03 122 mm[Hg] [facility] pressure 18:58:00 [facility] Diastolic blood 2022-04-03 79 mm[Hg] [facility] pressure 18:58:00 [facility] Heart rate 2022-04-03 79 /min [facility] 18:58:00 [facility] Body height 2022-04-03 175.3 cm [facility] 18:58:00 [facility] Body weight 2022-04-03 120.6 kg [facility] 18:58:00 [facility] BMI 2022-04-03 39.26 kg/m2 [facility] 18:58:00 [facility] Oxygen saturation 2022-04-03 96 /min [facility] in Arterial blood 18:58:00 [facility] by Pulse oximetry [facility] Body weight 2022-03-30 118.842 kg [facility] 15:54:00 of Medicine BMI 2022-03-30 38.69 kg/m2 [facility] 15:54:00 of Medicine Systolic blood 2022-03-12 134 mm[Hg] [facility] pressure 18:45:00 of Medicine Diastolic blood 2022-03-12 68 mm[Hg] [facility] pressure 18:45:00 of Medicine Body height 2022-03-12 175.3 cm [facility] 18:45:00 of Medicine Body weight 2022-03-12 121.564 kg [facility] 18:45:00 of Medicine BMI 2022-03-12 39.58 kg/m2 [facility] 18:45:00 of Medicine HEIGHT 2022-03-07 175.3 cm 16:23:00 WEIGHT 2022-03-07 121.564 kg 16:23:00 HEIGHT 2022-03-07 175.3 cm 16:23:00 WEIGHT 2022-03-07 121.564 kg 16:23:00 HEIGHT 2022-03-07 175.3 cm 16:23:00 WEIGHT 2022-03-07 121.564 kg 16:23:00 Systolic blood 2022-03-07 145 mm[Hg] [facility] pressure 16:55:00 of Medicine Diastolic blood 2022-03-07 81 mm[Hg] [facility] ge pressure 16:55:00 of Medicine Heart rate 2022-03-07 89 /min [facility] 16:55:00 of Medicine Body temperature 2022-03-07 36.83 Debra [facility] 16:55:00 of Medicine Body height 2022-03-07 175.3 cm [facility] 16:55:00 of Medicine Body weight 2022-03-07 121.927 kg [facility] 16:55:00 of Medicine BMI 2022-03-07 39.69 kg/m2 [facility] 16:55:00 of Medicine Oxygen saturation 2022-03-07 96 /min [facility] in Arterial blood 16:55:00 of Medicin e by Pulse oximetry Systolic blood 2022-03-06 126 mm[Hg] [facility] pressure 18:59:00 of Medicine Diastolic blood 2022-03-06 80 mm[Hg] [facility] pressure 18:59:00 of Medicine Heart rate 2022-03-06 84 /min [facility] 18:59:00 of Medicine Body temperature 2022-03-06 36.67 Debra [facility] 18:59:00 of Medicine Respiratory rate 2022-03-06 16 /min [facility] 18:59:00 of Medicine Body height 2022-03-06 175.3 cm [facility] 18:59:00 of Medicine Body weight 2022-03-06 122.925 kg [facility] 18:59:00 of Medicine BMI 2022-03-06 40.02 kg/m2 [facility] 18:59:00 of Medicine Oxygen saturation 2022-03-06 98 /min [facility] in Arterial blood 18:59:00 of Medicin e by Pulse oximetry Systolic blood 2022-02-21 126 mm[Hg] [facility] pressure 16:54:00 of Medicine Diastolic blood 2022-02-21 81 mm[Hg] [facility] 16:54:00 of Medicine Heart rate 2022-02-21 90 /min [facility] 16:54:00 of Medicine Body temperature 2022-02-21 37 Debra [facility] 16:54:00 of Medicine Respiratory rate 2022-02-21 18 /min [facility] 16:54:00 of Medicine Body height 2022-02-21 175.3 cm [facility] 16:54:00 of Medicine Body weight 2022-02-21 122.925 kg [facility] 16:54:00 of Medicine BMI 2022-02-21 40.02 kg/m2 [facility] 16:54:00 of Medicine Oxygen saturation 2022-02-21 95 /min [facility] in Arterial blood 16:54:00 of Medicin e by Pulse oximetry Systolic blood 2022-01-24 121 mm[Hg] [facility] pressure 16:11:00 of Medicine Diastolic blood 2022-01-24 74 mm[Hg] [facility] 16:11:00 of Medicine Heart rate 2022-01-24 88 /min [facility] 16:11:00 of Medicine Body temperature 2022-01-24 36.17 Debra [facility] 16:11:00 of Medicine Body height 2022-01-24 175.3 cm [facility] 16:11:00 of Medicine Body weight 2022-01-24 125.646 kg [facility] 16:11:00 of Medicine BMI 2022-01-24 40.91 kg/m2 [facility] 16:11:00 of Medicine Body height 2022-01-23 175.3 cm [facility] 14:36:00 of Medicine Body weight 2022-01-23 125.646 kg [facility] 14:36:00 of Medicine BMI 2022-01-23 40.91 kg/m2 [facility] 14:36:00 of Medicine Systolic blood 2022-01-22 110 mm[Hg] [facility] pressure 21:16:00 of Medicine Diastolic blood 2022-01-22 60 mm[Hg] [facility] pressure 21:16:00 of Medicine Heart rate 2022-01-22 85 /min [facility] 21:16:00 of Medicine Respiratory rate 2022-01-22 22 /min [facility] 21:16:00 of Medicine Systolic blood 2021-11-23 120 mm[Hg] [facility] pressure 18:06:00 of Medicine Diastolic blood 2021-11-23 81 mm[Hg] [facility] pressure 18:06:00 of Medicine Heart rate 2021-11-23 95 /min [facility] 18:06:00 of Medicine Body temperature 2021-11-23 37 Debra [facility] 18:06:00 of Medicine Respiratory rate 2021-11-23 16 /min [facility] 18:06:00 of Medicine Body height 2021-11-23 175.3 cm [facility] 18:06:00 of Medicine Body weight 2021-11-23 128.822 kg [facility] 18:06:00 of Medicine BMI 2021-11-23 41.94 kg/m2 [facility] 18:06:00 of Medicine Oxygen saturation 2021-11-23 96 /min [facility] in Arterial blood 18:06:00 of Medicin e by Pulse oximetry [facility] 2021-10-03 175.3 cm 18:19:00 WEIGHT 2021-10-03 126.1 kg 18:19:00 HEIGHT 2021-10-03 175.3 cm 18:19:00 WEIGHT 2021-10-03 126.1 kg 18:19:00 HEIGHT 2021-10-03 175.3 cm 18:19:00 WEIGHT 2021-10-03 126.1 kg 18:19:00 Systolic blood 2021-09-08 137 mm[Hg] [facility] pressure 18:41:00 of Medicine Diastolic blood 2021-09-08 87 mm[Hg] [facility] pressure 18:41:00 of Medicine Heart rate 2021-09-08 73 /min [facility] 18:41:00 of Medicine Body temperature 2021-09-08 36.28 Debra [facility] 18:41:00 of Medicine Respiratory rate 2021-09-08 16 /min [facility] 18:41:00 of Medicine Body height 2021-09-08 175.3 cm [facility] 18:41:00 of Medicine Body weight 2021-09-08 129.003 kg [facility] 18:41:00 of Medicine BMI 2021-09-08 42.00 kg/m2 [facility] 18:41:00 of Medicine Oxygen saturation 2021-09-08 100 /min [facility] in Arterial blood 18:41:00 of Medicin e by Pulse oximetry Systolic blood 2021-06-27 113 mm[Hg] [facility] pressure 17:35:00 of Medicine Diastolic blood 2021-06-27 77 mm[Hg] [facility] pressure 17:35:00 of Medicine Heart rate 2021-06-27 89 /min [facility] 17:35:00 of Medicine Body temperature 2021-06-27 37.28 Debra [facility] 17:35:00 of Medicine Body height 2021-06-27 175.3 cm [facility] 17:35:00 of Medicine Body weight 2021-06-27 121.564 kg [facility] 17:35:00 of Medicine BMI 2021-06-27 39.58 kg/m2 [facility] 17:35:00 of Medicine Systolic blood 2021-05-03 104 mm[Hg] [facility] pressure 17:27:00 of Medicine Diastolic blood 2021-05-03 66 mm[Hg] [facility] pressure 17:27:00 of Medicine Heart rate 2021-05-03 80 /min [facility] 17:27:00 of Medicine Body temperature 2021-05-03 36.61 Debra [facility] 17:27:00 of Medicine Respiratory rate 2021-05-03 16 /min [facility] 17:27:00 of Medicine Body height 2021-05-03 175.3 cm [facility] 17:27:00 of Medicine Body weight 2021-05-03 121.791 kg [facility] 17:27:00 of Medicine BMI 2021-05-03 39.65 kg/m2 [facility] 17:27:00 of Medicine Oxygen saturation 2021-05-03 98 /min [facility] in Arterial blood 17:27:00 of Medicin e by Pulse oximetry Systolic blood 2021-03-03 112 mm[Hg] [facility] pressure 18:53:00 of Medicine Diastolic blood 2021-03-03 77 mm[Hg] [facility] pressure 18:53:00 of Medicine Heart rate 2021-03-03 91 /min [facility] 18:53:00 of Medicine Body temperature 2021-03-03 36.67 Debra [facility] 18:53:00 of Medicine Body height 2021-03-03 170.2 cm [facility] 18:53:00 of Medicine Body weight 2021-03-03 130.182 kg [facility] 18:53:00 of Medicine BMI 2021-03-03 44.95 kg/m2 [facility] 18:53:00 of Medicine HEIGHT 2021-01-03 175.3 cm 13:54:00 WEIGHT 2021-01-03 126.2 kg 13:54:00 Systolic blood 2020-12-02 105 mm[Hg] [facility] pressure 16:35:00 of Medicine Diastolic blood 2020-12-02 72 mm[Hg] [facility] 16:35:00 of Medicine Heart rate 2020-12-02 71 /min [facility] 16:35:00 of Medicine Respiratory rate 2020-12-02 16 /min [facility] 16:35:00 of Medicine Body height 2020-12-02 170.2 cm [facility] 16:35:00 of Medicine Body weight 2020-12-02 130.182 kg [facility] 16:35:00 of Medicine BMI 2020-12-02 44.95 kg/m2 [facility] 16:35:00 of Medicine Oxygen saturation 2020-12-02 97 /min [facility] in Arterial blood 16:35:00 of Medicin e by Pulse oximetry Systolic blood 2020-06-14 117 mm[Hg] [facility] pressure 20:25:00 of Medicine Diastolic blood 2020-06-14 71 mm[Hg] [facility] pressure 20:25:00 of Medicine Heart rate 2020-06-14 93 /min [facility] 20:25:00 of Medicine Body temperature 2020-06-14 37 Debra [facility] 20:25:00 of Medicine Body height 2020-06-14 170.2 cm [facility] 20:25:00 of Medicine Body weight 2020-06-14 149.687 kg [facility] 20:25:00 of Medicine BMI 2020-06-14 51.69 kg/m2 [facility] 20:25:00 of Medicine Systolic blood 2020-06-14 117 mm[Hg] [facility] pressure 20:25:00 of Medicine Diastolic blood 2020-06-14 71 mm[Hg] [facility] 20:25:00 of Medicine Heart rate 2020-06-14 93 /min [facility] 20:25:00 of Medicine Body temperature 2020-06-14 37 Debra [facility] 20:25:00 of Medicine Body height 2020-06-14 170.2 cm [facility] 20:25:00 of Medicine Body weight 2020-06-14 149.687 kg [facility] 20:25:00 of Medicine BMI 2020-06-14 51.69 kg/m2 [facility] 20:25:00 of Medicine Systolic blood 2020-05-12 129 mm[Hg] [facility] pressure 18:10:00 of Medicine Diastolic blood 2020-05-12 83 mm[Hg] [facility] pressure 18:10:00 of Medicine Heart rate 2020-05-12 92 /min [facility] 18:10:00 of Medicine Body temperature 2020-05-12 36.5 Debra [facility] 18:06:00 of Medicine Systolic blood 2020-05-12 129 mm[Hg] [facility] pressure 18:10:00 of Medicine Diastolic blood 2020-05-12 83 mm[Hg] [facility] pressure 18:10:00 of Medicine Heart rate 2020-05-12 92 /min [facility] 18:10:00 of Medicine Body temperature 2020-05-12 36.5 Debra [facility] 18:06:00 of Medicine Systolic blood 2020-05-12 135 mm[Hg] [facility] pressure 19:43:00 of Medicine Diastolic blood 2020-05-12 88 mm[Hg] [facility] 19:43:00 of Medicine Heart rate 2020-05-12 87 /min [facility] 19:43:00 of Medicine Body temperature 2020-05-12 36.5 Debra [facility] 19:43:00 of Medicine Respiratory rate 2020-05-12 16 /min [facility] 19:43:00 of Medicine Body height 2020-05-12 170.2 cm [facility] 19:43:00 of Medicine Body weight 2020-05-12 149.687 kg [facility] 19:43:00 of Medicine BMI 2020-05-12 51.69 kg/m2 [facility] 19:43:00 of Medicine Oxygen saturation 2020-05-12 95 /min [facility] in Arterial blood 19:43:00 of Medicin e by Pulse oximetry Systolic blood 2020-05-12 135 mm[Hg] [facility] pressure 19:43:00 of Medicine Diastolic blood 2020-05-12 88 mm[Hg] [facility] pressure 19:43:00 of Medicine Heart rate 2020-05-12 87 /min [facility] 19:43:00 of Medicine Body temperature 2020-05-12 36.5 Debra [facility] 19:43:00 of Medicine Respiratory rate 2020-05-12 16 /min [facility] 19:43:00 of Medicine Body height 2020-05-12 170.2 cm [facility] 19:43:00 of Medicine Body weight 2020-05-12 149.687 kg [facility] 19:43:00 of Medicine BMI 2020-05-12 51.69 kg/m2 [facility] 19:43:00 of Medicine Oxygen saturation 2020-05-12 95 /min [facility] in Arterial blood 19:43:00 of Medicin e by Pulse oximetry HEIGHT 2020-02-10 175.3 cm 00:00:00 WEIGHT 2020-02-10 182.89 kg 00:00:00 Systolic blood 2019-12-22 150 mm[Hg] [facility] pressure 07:15:00 [facility] Diastolic blood 2019-12-22 87 mm[Hg] [facility] pressure 07:15:00 [facility] Heart rate 2019-12-22 86 /min [facility] 07:15:00 [facility] Respiratory rate 2019-12-22 18 /min [facility] 07:15:00 [facility] Oxygen saturation 2019-12-22 97 /min [facility] in Arterial blood 07:15:00 [facility] by Pulse oximetry Branch Body temperature 2019-12-22 38.06 Debra [place] of 02:58:00 [facility] Body weight 2019-12-22 149.687 kg University of 02:58:00 [facility] BMI 2019-12-22 62.35 kg/m2 [facility] of 02:58:00 [facility] Systolic blood 2019-08-20 148 mm[Hg] [facility] pressure 17:52:00 [facility] Diastolic blood 2019-08-20 90 mm[Hg] [facility] pressure 17:52:00 [facility] Heart rate 2019-08-20 89 /min [facility] 17:52:00 [facility] Body temperature 2019-08-20 36.89 Debra [facility] 17:52:00 [facility] Respiratory rate 2019-08-20 20 /min [facility] 17:52:00 [facility] Body weight 2019-08-20 149.687 kg [facility] of 17:52:00 [facility] BMI 2019-08-20 62.35 kg/m2 [facility] of 17:52:00 [facility] Oxygen saturation 2019-08-20 98 /min [facility] in Arterial blood 17:52:00 [facility] by Pulse oximetry [facility] Oxygen saturation 2022-06-21 96 /min [facility] Arterial blood 11:15:00 [facility] by Pulse oximetry Systolic blood 2022-06-21 112 mm[Hg] [facility] pressure 11:15:00 [facility] Diastolic blood 2022-06-21 51 mm[Hg] [facility] pressure 11:15:00 [facility] Heart rate 2022-06-21 68 /min [facility] 11:15:00 [facility] Body temperature 2022-06-[address] [facility] Respiratory rate 2022-06-21 20 /min [facility] 11:[facility] Body height 2022-06-[address] [facility] 06:24:00 [facility] Body weight 2022-06-[address] [facility] 06:24:00 [facility] BMI 2022-06-20 36.58 kg/m2 [facility] 06:24:00 [facility] Systolic blood 2022-03-23 118 mm[Hg] [facility] 07:[facility]:00 Hospital Diastolic blood 2022-03-23 58 mm[Hg] [facility] 07:00:00 Hospital Heart rate 2022-03-23 60 /min [facility] 07:[facility]:00 [facility] Respiratory rate 2022-03-23 16 /min [facility] 07:00:00 [facility] Oxygen saturation 2022-03-23 96 /min [facility] in Arterial blood 07:00:00 Hospital by Pulse oximetry Body temperature 2022-03-23 37.17 Debra [facility] 05:17:00 Hospital Body height 2022-03-23 175.3 cm [facility] 05:17:00 [facility] Body weight 2022-03-23 118.18 kg [facility] 05:17:00 [facility] BMI 2022-03-23 38.47 kg/m2 [facility] 05[facility]17:00 [facility] BP Systolic 2019-07-13 118 mm[Hg] Location: [place]; [facility] 13:08:00 Position: Sitting BP Diastolic 2019-07-13 73 mm[Hg] Location: [facility] 13:08:00 Position: Sitting Height 2019-07-13 68 [in_us] [facility] 13:08:00 Weight 2019-07-13 331 [lb_av] [facility] 13:08:00 Body Mass Index 2019-07-13 50.33 kg/m2 [facility] Calculated 13:08:00 Heart Rate 2019-07-13 84 /min [facility] 13:08:00 BP Systolic 2019-04-16 100 mm[Hg] Location: [place]; [facility] 12:58:00 Position: Sitting BP Diastolic 2019-04-16 66 mm[Hg] Location: [place]; [facility] 12:58:00 Position: Sitting Height 2019-04-16 68 [in_us] [facility] 12:58:00 Weight 2019-04-16 332 [lb_av] [facility] 12:58:00 Body Mass Index 2019-04-16 50.48 kg/m2 [facility] Calculated 12:58:00 Heart Rate 2019-04-16 91 /min Location: L [facility] 12:58:00 Radial; Quality: Normal BP Systolic 2019-03-26 122 mm[Hg] Location: [facility]; [facility] 11:25:00 Position: Sitting BP Diastolic 2019-03-26 73 mm[Hg] Location: [facility]; [facility] 11:25:00 Position: Sitting Height 2019-03-26 68 [in_us] [facility] 11:25:00 Weight 2019-03-26 335 [lb_av] [facility] 11:25:00 Body Mass Index 2019-03-26 50.94 kg/m2 [facility] Calculated 11:25:00 Heart Rate 2019-03-26 84 /min [facility] 11:25:00 Respiration Rate 2019-03-26 18 /min [facility] 11:25:00 BP Systolic 2019-03-05 119 mm[Hg] Location: [facility]; [facility] 10:35:00 Position: Sitting BP Diastolic 2019-03-05 79 mm[Hg] Location: [facility]; [facility] 10:35:00 Position: Sitting Height 2019-03-05 68 [in_us] [facility] 10:35:00 Weight 2019-03-05 331 [lb_av] [facility] 10:35:00 Body Mass Index 2019-03-05 50.33 kg/m2 [facility] Calculated 10:35:00 Heart Rate 2019-03-05 90 /min Location: L [facility] 10:35:00 Radial; Temperature 2019-03-05 98.4 [degF] Method: Oral [facility] 10:35:00 BP Systolic 2019-02-05 120 mm[Hg] Location: [facility]; [facility] 16:19:00 Position: Sitting BP Diastolic 2019-02-05 74 mm[Hg] Location: [facility]; [facility] 16:19:00 Position: Sitting Height 2019-02-05 68 [in_us] [facility] 16:19:00 Weight 2019-02-05 329 [lb_av] [facility] 16:19:00 Body Mass Index 2019-02-05 50.02 kg/m2 [facility] Calculated 16:19:00 Temperature 2019-02-05 98 [degF] Method: Oral [facility] 16:19:00 Heart Rate 2019-02-05 89 /min Location: L [facility] 16:19:00 Radial; Quality: Normal Respiration Rate 2019-02-05 18 /min Quality: Normal [facility] 16:19:00 O2 SAT 2019-02-05 95 % Source: RA [facility] 16:19:00 BP Systolic 2019-01-29 120 mm[Hg] Location: [facility]; [facility] 15:41:00 Position: Sitting BP Diastolic 2019-01-29 80 mm[Hg] Location: [facility]; [facility] 15:41:00 Position: Sitting Height 2019-01-29 68 [in_us] [facility] 15:41:00 Weight 2019-01-29 325 [lb_av] [facility] 15:41:00 Body Mass Index 2019-01-29 49.42 kg/m2 [facility] Calculated 15:41:00 Heart Rate 2019-01-29 89 /min [facility] 15:41:00 Respiration Rate 2019-01-29 16 /min [facility] 15:41:00 BP Systolic 2019-01-23 111 mm[Hg] Location: [facility]; [facility] 13:46:00 Position: Sitting BP Diastolic 2019-01-23 69 mm[Hg] Location: [facility]; [facility] 13:46:00 Position: Sitting Height 2019-01-23 68 [in_us] [facility] 13:46:00 Weight 2019-01-23 330 [lb_av] [facility] 13:46:00 Body Mass Index 2019-01-23 50.18 kg/m2 [facility] 13:46:00 Heart Rate 2019-01-23 86 /min Location: L [facility] 13:46:00 Radial; Quality: Normal BP Systolic 2019-01-14 101 mm[Hg] Location: [facility]; [facility] 12:53:00 Position: Sitting BP Diastolic 2019-01-14 66 mm[Hg] Location: [facility]; [facility] 12:53:00 Position: Sitting Height 2019-01-14 68 [in_us] [facility] 12:53:00 Body Mass Index 2019-01-14 49.2 kg/m2 [facility] Calculated 12:53:00 Weight 2019-01-14 323.6 [lb_av] [facility] 12:53:00 Respiration Rate 2019-01-14 18 /min Quality: Normal [facility] 12:53:00 Temperature 2019-01-14 97.8 [degF] Method: Oral [facility] 12:53:00 Heart Rate 2019-01-14 86 /min Location: R [facility] 12:53:00 Brachial Artery; Quality: Normal O2 SAT 2019-01-14 95 % Source: RA [facility] 12:53:00 BP Systolic 2019-01-14 120 mm[Hg] [facility] 08:57:00 BP Diastolic 2019-01-14 76 mm[Hg] [facility] 08:57:00 Height 2019-01-14 68 [in_us] [facility] 08:57:00 Body Mass Index 2019-01-14 49.42 kg/m2 [facility] 08:57:00 Weight 2019-01-14 325 [lb_av] [facility] 08:57:00 Respiration Rate 2019-01-14 18 /min [facility] 08:57:00 Heart Rate 2019-01-14 82 /min [facility] 08:57:00 O2 SAT 2019-01-14 93 % [facility] 08:57:00 BP Systolic 2019-01-14 120 mm[Hg] Location: [facility]; [facility] 08:45:00 Position: Sitting BP Diastolic 2019-01-14 76 mm[Hg] Location: [facility]; [facility] 08:45:00 Position: Sitting Height 2019-01-14 68 [in_us] [facility] 08:45:00 Body Mass Index 2019-01-14 49.42 kg/m2 [facility] Calculated 08:45:00 Weight 2019-01-14 325 [lb_av] [facility] 08:45:00 Respiration Rate 2019-01-14 18 /min [facility] 08:45:00 Heart Rate 2019-01-14 82 /min [facility] 08:45:00 O2 SAT 2019-01-14 93 % Source: RA [facility] 08:45:00 O2 SAT 2019-01-13 94 % Source: RA [facility] 08:31:00 BP Systolic 2019-01-13 119 mm[Hg] Location: [facility]; [facility] 08:26:00 Position: Sitting BP Diastolic 2019-01-13 79 mm[Hg] Location: [facility]; [facility] 08:26:00 Position: Sitting Heart Rate 2019-01-13 91 /min [facility] 08:26:00 Respiration Rate 2019-01-13 19 /min [facility] 08:26:00 BP Systolic 2019-01-13 123 mm[Hg] Location: [facility]; [facility] 08:22:00 Position: Sitting BP Diastolic 2019-01-13 85 mm[Hg] Location: [facility]; [facility] 08:22:00 Position: Sitting Height 2019-01-13 68 [in_us] [facility] 08:22:00 Weight 2019-01-13 325 [lb_av] [facility] 08:22:00 Body Mass Index 2019-01-13 49.42 kg/m2 [facility] 08:22:00 BP Systolic 2018-12-29 111 mm[Hg] Location: [facility]; [facility] 13:10:00 Position: Sitting BP Diastolic 2018-12-29 73 mm[Hg] Location: [facility]; [facility] 13:10:00 Position: Sitting Weight 2018-12-29 325.4375 [lb_av] [facility] 13:10:00 Height 2018-12-29 68 [in_us] [facility] 13:10:00 Body Mass Index 2018-12-29 49.48 kg/m2 [facility] Calculated 13:10:00 Temperature 2018-12-29 98.3 [degF] Method: Oral [facility] 13:10:00 Heart Rate 2018-12-29 93 /min Location: L [facility] 13:10:00 Brachial Artery; Quality: Normal O2 SAT 2018-12-29 94 % Source: RA [facility] 13:10:00 Respiration Rate 2018-12-29 20 /min Quality: Normal [facility] 13:10:00 Procedures Procedure Date / Time Performing Clinician Source Performed URINALYSIS W/ REFLEX URINE 2022-06-21 07:37:00 Rukhsana Esposito [facility] POCT-GLUCOSE METER 2022-06-21 05:35:00 Swift-RACHELE Gerard [facility] POCT-GLUCOSE METER 2022-06-21 00:05:00 Froilan [facility] POCT-GLUCOSE METER 2022-06-20 17:50:00 Froilan [facility] GASTRECTOMY, SLEEVE, 2022-06-20 10:49:00 RACHELE Meredith [facility] LAPAROSCOPIC [facility] POCT-GLUCOSE METER 2022-06-20 06:35:00 Ana LuisaMoustapha [facility] POCT , URINE 2022-06-20 06:25:00 Nicolas Ellington [facility] ED ECG INTERPRETATION 2022-06-19 20:47:00 Dmitri Mckeon CH I [facility] XR CHEST 1 VIEW PORTABLE / 2022-06-19 19:42:00 Shelly Mckeon in [facility] ECG 12-LEAD 2022-06-19 19:23:04 Dmitri Mckeon [facility] ECG 12-LEAD 2022-06-19 19:23:04 Unknown, Hl7 Doctor [facility] XR SCAPULA RIGHT 2022-06-15 22:25:00 Sydnie Gallegos [facility] XR SHOULDER 2+ VW RIGHT 2022-06-15 22:25:00 Sydnie Galelgos [facility] HEMOGLOBIN 2022-06-14 13:12:00 Ziyad Allen [facility] ELECTROLYTES 2022-06-14 13:12:00 Ziyad Allen [facility] BUN AND CREATININE W/RATIO 2022-06-14 13:12:00 Ziyad Allen and [facility] PATIENT QUESTIONNAIRE 2022-06-14 06:01:00 Doctor Unassigned, Uni [facility] OCT, RETINA - OU - BOTH 2022-06-13 14:47:24 [facility] EYES Medicine OCT, OPTIC NERVE - OU - 2022-06-13 14:47:22 [facility] EYES Medicine 24-2 AGUSTIN FASTER,OU-BOTH 2022-06-13 14:47:21 [facility] EYES [facility] IMMUNOGLOBULINS IGG IGA IGM 2022-06-08 17:00:00 [facility] C4 COMPLEMENT 2022-06-08 17:00:00 [facility] C3 COMPLEMENT 2022-06-07 12:11:26 [facility] DIPTHERIA/TETANUS AB PANEL 2022-06-07 12:09:[address] [facility] STREP PNEUMONIAE AB, 23 2022-06-07 12:09:37 [facility] B-CELL MEMORY AND NAIVE 2022-06-07 12:00:28 [facility] LYMPHOCYTE PHENOTYPING 2022-06-07 12:00:[address] IGE 2022-06-07 11:46:17 [facility] IGE 2022-06-07 11:46:17 [facility] EMG/NCV 2022-06-06 16:15:00 Oj Lin [facility] IGE 2022-05-31 11:00:16 [facility] B-CELL MEMORY AND NAIVE 2022-05-31 10:59:01 [facility] LYMPHOCYTE PHENOTYPING 2022-05-31 10:59:[address] N-METHYLHISTAMINE, 24 HR, U 2022-05-31 10:57:25 [facility] SPIROMETRY WITH 2022-05-30 13:54:16 [facility] BRONCHODILATOR Medicine EMG PM\\T\\R 2022-05-09 12:47:12 [facility] REPORT OF PROCEDURE - 2022-05-07 15:33:03 Ilia Pascal I [facility] ENDOSCOPY [facility] REPORT OF PROCEDURE - 2022-05-07 15:32:35 Ilia Pascal I [facility] ENDOSCOPY [facility] ESOPHAGOGASTRODUODENOSCOPY, 2022-05-07 14:42:00 Ilia Pascal [facility] WITH PH MONITORING CAPSULE Medic al Center INSERTION COLONOSCOPY 2022-05-07 14:42:00 Ilia Pascal [facility] POCT , URINE 2022-05-07 12:19:00 Willard Bueno I [facility] [place] NASAL ENDOSCOPY,DX 2022-05-06 22:44:59 [facility] TSH 2022-05-05 11:22:00 [facility] COMPLEMENT COMPONENT C3C 2022-05-05 11:22:00 [facility] C4 COMPLEMENT 2022-05-05 11:22:00 [facility] IMMUNOGLOBULINS IGG IGA IGM 2022-05-05 11:22:00 [facility] TRYPTASE 2022-05-05 11:22:00 [facility] C4 COMPLEMENT 2022-05-05 11:11:00 [facility] TRYPTASE 2022-05-05 11:11:00 [facility] IMMUNOGLOBULINS IGG IGA IGM 2022-05-05 11:11:00 [facility] DIPTHERIA/TETANUS AB PANEL 2022-05-05 11:11:[address] [facility] STREP PNEUMONIAE ANTIBODY 2022-05-05 11:11:00 [facility] SPIROMETRY WITH 2022-05-01 16:23:58 [facility] BRONCHODILATOR Medicine C3 COMPLEMENT 2022-05-01 15:33:48 [facility] C4 COMPLEMENT 2022-05-01 15:33:48 [facility] TRYPTASE 2022-05-01 15:33:48 [facility] IGE 2022-05-01 15:33:48 [facility] IMMUNOGLOBULINS IGG IGA IGM 2022-05-01 15:33:48 [facility] LYMPHOCYTE PHENOTYPING 2022-05-01 15:33:[address] B-CELL MEMORY AND NAIVE 2022-05-01 15:33:48 [facility] N-METHYLHISTAMINE, URINE 2022-05-01 15:33:48 [facility] DIPTHERIA/TETANUS AB PANEL 2022-05-01 15:33:48 [facility] STREP PNEUMONIAE ANTIBODY 2022-05-01 15:33:48 [facility] AMB REF TO ALLERGY AND 2022-04-30 10:15:04 [facility] IMMUNOLOGY IN DEPT OF Medicine MEDICINE [facility] PAP SETTING CHANGE 2022-04-19 15:05:09 [facility] SLEEP EQUIPMENT DOWNLOAD 2022-04-19 12:10:35 [facility] AMB REF TO ENT [facility] 2022-04-19 12:10:15 [facility] EMG NEUROLOGY 2022-04-09 11:11:17 [facility] AMB REF TO PT EXTERNAL 2022-04-09 11:04:43 [facility] VITAMIN B6 2022-04-06 11:30:00 [facility] VITAMIN B12 2022-04-06 11:30:00 [facility] VITAMIN B1 2022-04-06 11:30:00 [facility] VITAMIN A 2022-04-06 11:30:00 [facility] URINALYSIS, COMPLETE 2022-04-06 11:30:00 [facility]/REFLEX TO CULTURE Medicine PROTIME \\T\\ PTT 2022-04-06 11:30:00 [facility] LIPID PANEL 2022-04-06 11:30:00 [facility] IRON, TIBC AND FERRITIN 2022-04-06 11:30:00 [facility] HEMOGLOBIN A1C 2022-04-06 11:30:00 [facility] FOLATE 2022-04-06 11:30:00 [facility] COMPREHENSIVE METABOLIC 2022-04-06 11:30:00 [facility] CBC W/AUTO DIFF WITH 2022-04-06 11:30:00 [facility] THYROID PROFILE (T3U - T4 - 2022-04-06 11:30:00 [facility] T7 - TSH) Medicine REFLEXIVE URINE CULTURE 2022-04-06 11:30:00 [facility] VITAMIN D, 25-HYDROXY, 2022-04-06 11:30:00 [facility] LC/MS/MS Medicine ASSIGNMENT OF BENEFITS 2022-04-03 18:47:41 Doctor Unassigned, [facility] URINALYSIS 2022-03-23 06:56:00 [facility] CT HEAD WO CONTRAST 2022-03-23 06:27:39 [facility] AMB REF TO OPHTHALMOLOGY 2022-03-21 11:35:41 [facility] XR SHOULDER COMPLETE 2 2022-03-17 13:21:00 [facility] MR CERVICAL SPINE WITH & 2022-03-16 22:43:[address] [facility] WITHOUT IV CONTRAST Medical [facility] MR BRAIN WITH & WITHOUT IV 2022-03-16 22:42:[address] [facility] CONTRAST [facility] ECG 12-LEAD 2022-03-16 01:36:41 Mariel Ferrell [facility] ECG 12-LEAD 2022-03-16 01:36:41 Unknown, Hl7 [facility] URINE CULTURE 2022-03-15 17:52:00 MyDonny [facility] URINALYSIS W/ REFLEX URINE 2022-03-15 17:52:00 Donny Feng [facility] MISCELLANEOUS LAB ORDER 2022-03-15 12:33:00 Saleem Albert [facility] COPPER 2022-03-15 09:09:00 [facility] BASIC METABOLIC PANEL 2022-03-15 05:20:00 Travis [facility] HEPATIC FUNCTION PANEL 2022-03-15 05:20:00 Yuli Robles [facility] MAGNESIUM 2022-03-15 05:20:00 [facility] VIT[facility] B12 2022-03-15 03:24:[address] [facility] TSH/FREE T4 IF INDICATED 2022-03-15 03:24:00 Yuli Robles [facility] PROTEIN ELECTROPHORESIS, 2022-03-15 03:24:[address] [facility] SERUM [facility] CBC W/PLT COUNT & AUTO 2022-03-15 03:24:00 [facility] CBC W/PLT COUNT & AUTO 2022-03-15 03:24:00 [facility] & 2022-03-14 22:10:[address] [facility] REF LABS) [facility] CBC W/PLT COUNT & AUTO 2022-03-14 18:11:00 [facility] PT/APTT 2022-03-14 18:11:00 Trina [facility] COMPREHENSIVE METABOLIC 2022-03-14 18:11:00 Trina [facility] HCG, QUANTITATIVE, 2022-03-14 18:11:00 Trina [facility] CBC W/PLT COUNT & AUTO 2022-03-14 18:11:00 [facility] IMMUNOFIXATION + PROTEIN 2022-03-12 21:32:00 Leonora Smith [facility] ELECTROPHORESIS - SERUM [facility] Medicine VITAMIN B12 2022-03-12 21:29:00 Tigre [facility] PYRUVIC ACID 2022-03-12 21:29:00 Tigre Leonora [facility] IMMUNOFIXATION + PROTEIN 2022-03-12 16:32:00 [facility] SERUM Medicine VITAMIN B12 2022-03-12 16:29:00 [facility] PYRUVIC ACID 2022-03-12 16:29:00 [facility] PARANEOPLASTIC PANEL, W RFL 2022-03-12 14:20:17 [facility] (SERUM) [facility] LACTATE 2022-03-12 14:20:17 [facility] REFERRAL- REQUEST/RESPONSE 2022-03-09 05:01:00 Doctor Unassigned , [facility] CT BRAIN WITHOUT IV 2022-03-07 17:56:[address] [facility] CBC W/PLT COUNT & AUTO 2022-03-07 17:21:[address] Springer [facility] COMPREHENSIVE METABOLIC 2022-03-07 17:21:00 Pili Springer [facility] PANEL [facility] MAGNESIUM 2022-03-07 17:21:[address] [facility] PHOSPHORUS 2022-03-07 17:21:[address] [facility] CBC W/PLT COUNT & AUTO 2022-03-07 17:21:00 Pili Springer [facility] DIFFERENTIAL [facility] AMB REF TO NEUROLOGY [facility] 2022-02-27 13:16:53 [facility] HIV AB/AG 4TH GEN W RFLX 2022-02-22 08:25:00 [facility] URINALYSIS, COMPLETE 2022-02-21 12:24:24 [facility]/REFLEX TO CULTURE Medicine CBC W/AUTO DIFF WITH 2022-02-21 12:16:08 [facility] PLATELETS [facility] COMPREHENSIVE METABOLIC 2022-02-21 12:16:08 [facility] CPAP MACHINE 2022-02-16 00:00:00 [facility] COMPREHENSIVE METABOLIC 2022-02-12 14:54:05 [facility] HIV AB/AG 4TH GEN W RFLX 2022-02-12 14:52:22 [facility] CBC W/AUTO DIFF WITH 2022-02-12 14:52:22 [facility] PLATELETS [facility] C DIFFICILE TOXIN PCR 2022-02-06 16:44:00 [facility] [place] ESOPHAGUS 2022-01-15 11:07:00 RACHELE Meredith [facility] CBC W/AUTO DIFF WITH 2022-01-09 15:26:25 [facility] PLATELETS [facility] COMPREHENSIVE METABOLIC 2022-01-09 15:26:25 [facility] TSH 2022-01-09 15:26:25 [facility] CPAP MACHINE 2021-12-21 14:08:51 [facility] DIAGNOSTIC SLEEP STUDY 2021-12-21 08:15:20 [facility] DIAGNOSTIC SLEEP STUDY 2021-12-21 00:00:00 [facility] POLYSOMNOGRAPHY 2021-12-13 22:41:[address] [facility] POLYSOMNOGRAPHY REPORT - 2021-12-13 00:00:00 Provider, Sierra KENNEDY [facility] ELECTROCARDIOGRAM COMPLETE 2021-11-23 22:37:57 Abdoulaye [employer] ELECTROCARDIOGRAM COMPLETE 2021-11-23 17:37:[address] [facility] URINALYSIS W REFLEX MICRO 2021-11-22 13:55:00 Ba [facility] URINE CULTURE 2021-11-22 13:55:00 [facility] PLEASE NOTE 2021-11-22 13:55:00 [facility] CBC W/AUTO DIFF WITH 2021-11-21 10:43:51 [facility] BASIC METABOLIC PANEL 2021-11-21 10:43:51 [facility] HEPATIC FUNCTION PANEL 2021-11-21 10:43:51 [facility] SEDIMENTATION RATE MODIFIED 2021-11-21 10:43:51 [facility] AMB REF TO PSYCHOLOGY 2021-11-16 11:34:51 [facility] EXTERNAL [facility] VITAMIN B12 2021-11-14 15:44:21 [facility] VITAMIN B1 2021-11-14 15:44:21 [facility] VITAMIN A 2021-11-14 15:44:21 [facility] URINALYSIS, COMPLETE 2021-11-14 15:44:21 [facility]/REFLEX TO CULTURE Medicine PROTIME \\T\\ PTT 2021-11-14 15:44:21 [facility] LIPID PANEL 2021-11-14 15:44:21 [facility] IRON, TIBC AND FERRITIN 2021-11-14 15:44:21 [facility] HEMOGLOBIN A1C 2021-11-14 15:44:21 [facility] FOLATE 2021-11-14 15:44:21 [facility] COMPREHENSIVE METABOLIC 2021-11-14 15:44:21 [facility] CBC W/AUTO DIFF WITH 2021-11-14 15:44:21 [facility] AMB REF TO PHYSICAL MED 2021-11-14 15:44:21 [facility] REHAB [facility] THYROID PROFILE (T3U - T4 - 2021-11-14 15:44:21 [facility] T7 - TSH) Medicine AMB REF TO BARIATRIC 2021-11-14 15:44:21 [facility] CHIROPRACTIC NEUROLOGIST [facility] VITAMIN D 25 HYDROXY 2021-11-14 15:44:20 [facility] VITAMIN B6 2021-11-14 15:44:20 [facility] AMB REF TO GENETICS(GENERAL 2021-11-08 11:25:03 [facility] AMB REF TO BARIATRIC 2021-11-06 13:46:59 [facility] SURGERY [facility] AMB REF TO SLEEP 2021-11-06 13:45:36 [facility] Deangelo ege of [facility] Medicin e CT ABDOMEN/PELVIS WITH IV 2021-10-03 21:22:00 Makenzie Varela [facility] CONTRAST Medical Center URINALYSIS W/ REFLEX URINE 2021-10-03 20:00:00 aMkenzie Varela [facility] CULTURE [facility] SARS-COV2/RT-PCR ([facility] & 2021-10-03 19:58:00 Makenzie Varela [facility] REF LABS) Medical Center CBC W/PLT COUNT & AUTO 2021-10-03 19:40:[address] [facility] DIFFERENTIAL [facility] COMPREHENSIVE METABOLIC 2021-10-03 19:40:00 Makenzie Varela [facility] B-TYPE NATRIURETIC FACTOR 2021-10-03 19:40:00 Makenzie Varela [facility] (BNP) [facility] HCG, QUANTITATIVE, 2021-10-03 19:40:[address] [facility] HIGH SENSITIVITY TROPONIN I 2021-10-03 19:40:00 Makenzie Varela H mavis [facility] MAGNESIUM 2021-10-03 19:40:00 Makenzie Varela [facility] PHOSPHORUS 2021-10-03 19:40:00 Makenzie Varela [facility] LIPASE 2021-10-03 19:40:[facility]ID, VENOUS 2021-10-03 19:40:00 Makenzie Varela [facility] CBC W/PLT COUNT & AUTO 2021-10-03 19:40:00 Makenzie Varela [facility] XR CHEST 2 VIEWS 2021-10-03 19:06:00 VarelaMakenzie conrad Mo [facility] ECG 12-LEAD 2021-10-03 18:24:15 Unknown, Hl7 Doctor [facility] ECG 12-LEAD 2021-10-03 18:24:15 Unknown, Hl7 Doctor [facility] EKG-SCANNED 2021-10-03 00:00:00 Provider, Sierra [facility] Scanning [facility] [place] OCCUPATIONAL THERAPY 2021-06-27 13:19:30 [facility] LOW COMPLEX 30 MINS Medicin e [place] CANALITH REPOSITIONING 2021-06-27 13:19:30 [facility] PROCEDURE, PER DAY Medicine AMB REF TO SIVAKUMAR BALANCE 2021-06-27 11:47:25 [facility] HOMOCYSTEINE 2021-03-21 19:23:28 [facility] LIPID PANEL 2021-03-21 19:23:28 [facility] PROTEIN ELECTROPHORESIS - 2021-03-21 19:23:28 [facility] REFLEX TO IMMUNOFIXATION Medicin e RPR - W RFLX TO MHA-TP 2021-03-21 19:23:28 [facility] SEDIMENTATION RATE MODIFIED 2021-03-21 19:23:28 [facility] T3 UPTAKE 2021-03-21 19:23:28 [facility] T4 2021-03-21 19:23:28 [facility] TSH 2021-03-21 19:23:28 [facility] VITAMIN B12 2021-03-21 19:23:28 [facility] HEMOGLOBIN A1C 2021-03-21 19:23:28 [facility] VITAMIN D 25 HYDROXY 2021-03-21 19:23:28 [facility] FOLATE 2021-03-21 19:23:28 [facility] SJOGREN'S SS-A AND SS-B 2021-03-21 19:23:28 [facility] VITAMIN B6 2021-03-21 19:23:28 [facility] VITAMIN B1 2021-03-21 19:23:28 [facility] PARANEOPLASTIC PANEL, W RFL 2021-03-21 19:23:28 [facility] (SERUM) [facility] ANGIOTENSIN CONVERTING 2021-03-21 19:23:[address] [facility] PORPHOBILINOGEN SCREEN 2021-03-21 19:23:28 [facility] AMB REF TO NEUROPSYCH 2021-03-21 19:23:27 [facility] AMB REF TO SLEEP 2021-03-21 19:23:27 [facility] Deangelo ege of [facility]-STUDY \\T\\ TREATMENT Medic ine WARREN REFLEX TO NUCLEAR AB 2021-03-21 19:23:27 [facility] APOLIPOPROTEIN E MUTATION - 2021-03-21 19:23:27 [facility] CARDIAC [facility] CBC W/AUTO DIFF WITH 2021-03-21 19:23:27 [facility] COMPREHENSIVE METABOLIC 2021-03-21 19:23:27 [facility] [place] COMPREHENSIVE HEARING 2021-03-03 15:03:51 [facility] [place] TYMPANOMETRY 2021-03-03 15:03:51 [facility] AMB REF TO SIVAKUMAR AUDIOLOGY 2021-03-03 14:27:08 [facility] ASSIGNMENT OF BENEFITS 2020-03-10 18:05:52 Doctor Unassigned, Un [facility] Post Op Promis 29 Survey 2020-01-08 00:00:00 [facility] US Extremity lower venous 2019-12-23 00:00:00 [facility] Doppler Unilat [id number] BILATERAL VENOUS DUPLEX 2019-12-22 05:01:08 Dede Schaffer [facility] LOWER EXTREMITY BY VASCULAR Medi tyler Branch LAB XR CHEST 2 VW 2019-12-22 04:26:01 Dede Schaffer [facility] COVID-19 (ID NOW RAPID 2019-12-22 03:39:[address] [facility] TESTING) Medical Branch TROPONIN I 2019-12-22 03:33:00 Dede Schaffer [facility] HEPATIC FUNCTION PANEL 2019-12-22 03:33:[address] [facility] ([id number]) (ALB,T.PRO,BILI Medical Branch T,BU/BC,ALT,AST,ALK PHOS) BASIC METABOLIC PANEL (NA, 2019-12-22 03:33:00 Sarbjit Guthrie [facility] K, CL, CO2, GLUCOSE, BUN, Medica l Branch CREATININE, CA) CBC WITH DIFFERENTIAL 2019-12-22 03:33:00 Sarbjit [facility] D-DIMER 2019-12-22 03:33:00 Sarbjit [facility] N-TERMINAL PRO-BNP 2019-12-22 03:33:00 Sarbjit [facility] URINALYSIS 2019-12-22 03:22:00 Sarbjit [facility] POCT TEST 2019-12-22 03:21:00 Dede Schaffer [facility] NOTICE OF PRIVACY PRACTICES 2019-12-22 02:50:34 Doctor [facility] Name [facility] CONSENT/REFUSAL FOR 2019-12-22 02:50:16 Doctor Gonzalez [facility] DIAGNOSIS AND TREATMENT [facility] MR Ankle wo contrast [id number] 2019-10-19 00:00:00 [facility] Spine lumbar wo 2019-08-24 00:00:00 [facility] contrast [id number] XR HIPS 2 VW RIGHT 2019-08-20 18:42:57 Mehreen Marquez [facility] NOTICE OF PRIVACY PRACTICES 2019-08-20 17:37:34 Doctor [facility] Name [facility] CONSENT/REFUSAL FOR 2019-08-20 17:37:25 Doctor Gonzalez [facility] DIAGNOSIS AND TREATMENT [facility] Post Op Promis 29 Survey 2019-05-20 00:00:00 [facility] CLOSTRIDIUM DIFFICILE 2019-04-16 00:00:00 [facility] TOXIN A AND B, EIA [[facility]] CULTURE, STOOL 2019-04-16 00:00:00 [facility] (CAMPYLOBACTER, SALMONELLA/SHIGELLA) MR Shoulder wo contrast 2019-04-08 00:00:00 [facility] [id number] Colonoscopy 2019-03-06 00:00:00 [facility] [QL[facility]] CLOSTRIDIUM DIFFICILE 2019-03-05 00:00:00 [facility] TOXIN A AND B, EIA [QLH] CULTURE, URINE, 2019-02-13 00:00:00 [facility] ROUTINE [LH] GC/CT by Amp Det 2019-02-13 00:00:00 [facility] (APTIMA) MR Ankle wo contrast [id number] 2019-02-10 00:00:00 [facility] [QH] DRUG 2019-02-09 00:00:00 [facility] SCREEN,COMPREHENSIVE (URINE) XRAY Clavicle Bilateral 2019-01-29 00:00:00 [facility] [id number] [H] Celiac Pnl w/Rflx 2019-01-23 00:00:00 [facility] Endomy Ab Ttr [QLH] HEPATIC FUNCTION 2019-01-23 00:00:00 [facility] PANEL [H] LUNDBERG FibroSure 2019-01-23 00:00:00 [facility] [QL[facility]] CALPROTECTIN, STOOL 2019-01-23 00:00:00 [facility] US Abdomen Doppler [id number] 2019-01-23 00:00:00 [facility] Sleep Lab - Sleep Study 2019-01-14 00:00:00 [facility] Split Night [H] CK Isoenzymes 2019-01-14 00:00:00 [facility] Complete PFTs w/DLCO and 2019-01-14 00:00:00 [facility] Lung Volumes [N] 2D Echo complete, with 2019-01-14 00:00:00 [facility] Doppler [id number] [QLH] URINALYSIS, COMPLETE 2019-01-13 00:00:00 [facility] W/REFLEX TO CULTURE [QH] PROTEIN, TOTAL 2019-01-13 00:00:00 [facility] W/CREAT, RANDOM URINE [QL] QUANTIFERON(R)-TB GOLD 2019-01-13 00:00:00 [facility] [QLH] HEPATITIS C ANTIBODY 2019-01-13 00:00:00 [facility] [QH] HEPATITIS B SURFACE 2019-01-13 00:00:00 [facility] ANTIGEN W/REFL CONFIRM [QH] CYCLIC CITRULLINATED 2019-01-13 00:00:00 [facility] PEPTIDE (CCP) AB (IGG) XRAY Knee 1-2 Views 2019-01-13 00:00:00 [facility] Bilateral [id number] XRAY Chest 2 views [id number] 2019-01-13 00:00:00 [facility] XRAY Hip bilateral w pelvis 2019-01-13 00:00:00 [facility] and both lat hips [id number] XRAY Spine lumbar AP 2019-01-13 00:00:00 [facility] lateral [id number] XRAY Spine cervical 2 or 3 2019-01-13 00:00:00 [facility] view [id number] XRAY Shoulder series [id number] 2019-01-13 00:00:00 [facility] [QLH] TSH, 3RD GENERATION 2018-12-29 00:00:00 [facility] W/REFLEX TO FT4 [QH] LIPID PANEL WITH 2018-12-29 00:00:00 [facility] REFLEX TO DIRECT LDL [QLH] HEMOGLOBIN A1c 2018-12-29 00:00:00 [facility] [QL[facility]] CMP W/EGFR 2018-12-29 00:00:00 [facility] [[facility]] CBC (INCLUDES 2018-12-29 00:00:00 [facility] DIFF/PLT) [QH] HIV AB, HIV 1/2, EIA, 2018-12-29 00:00:00 [facility] WITH REFLEXES [QLH] WARREN PANEL, 2018-12-29 00:[facility] COMPREHENSIVE [[facility]] SED RATE BY MODIFIED 2018-12-29 00:00:00 [facility] WESTERGREN [H] CRP, hs, Cardiac Risk 2018-12-29 00:[facility] [H] Urinalysis w/ 2018-12-29 00:[facility] Microscopic [[facility]] CULTURE, URINE, 2018-12-29 00:[facility] ROUTINE [O] Urine Dipstick (In 2018-12-29 00:00:00 [facility]bladder [facility] Endometrial [facility]ney [facility]enoidectomy [facility] of [facility]olecystectomy [facility]us [facility] Plan of Care Planned Activity Planned Date Details Comments Source Future Scheduled 2025-10-01 DTAP/TDAP/TD VACCINES [facility] 00:[facility]:00 (4 - Td or Tdap) [code Medic al Center = DTAP/TDAP/TD VACCINES (4 - Td or Tdap)] Future Scheduled 2025-04-[address] [facility]:00 (procedure) [code = [facility] [id number]] Future Scheduled 2023-06-[address] [facility] Test 00:00:00 [facility] Medical Cent[facility] r Screening (12+) [code = Tobacco Cessation Counseling and Screening (12+)] Future Scheduled 2022-06-28 Pneumococcal Vaccine: [facility] 13:07:28 Pediatrics (0 to 5 Hospital Years) and At-Risk Patients (6 to 64 Years) (1 - PCV) [code = Pneumococcal Vaccine: Pediatrics (0 to 5 Years) and At-Risk Patients (6 to 64 Years) (1 - PCV)] Future Scheduled 2022-06-28 [facility] for [facility] 13:07:28 malignant neoplasm of Hospit al cervix (procedure) [code = 926229124] Future Scheduled 2022-06-28 BREAST CANCER [facility] 13:07:28 SCREENING [code = Hospital BREAST CANCER SCREENING] Future Scheduled 2022-06-28 COVID-19 VACCINE (5 - [facility] 13:07:28 Booster for Moderna Hospital series) [code = COVID-19 VACCINE (5 - Booster for Moderna series)] Future Scheduled 2022-06-28 INFLUENZA VACCINE [facility] 13:07:28 [code = INFLUENZA Hospital VACCINE] Future Scheduled 2022-05-06 [place] NASAL ENDOSCOPY,DX Ordered: [facility] Test 22:44:59 [code = 17340] 05/06/2022 of Medicine Future Scheduled 2022-05-06 Screening for [facility] Test 22:38:08 malignant neoplasm of of Med icine colon (procedure) [code = 173356226] Future Scheduled 2022-05-06 COVID-19 Vaccine (3 - [facility] Test 22:38:08 Moderna risk series) of Medi cine [code = COVID-19 Vaccine (3 - Moderna risk series)] Future Scheduled 2022-05-06 FLU VACCINE > 6 MONTHS Postponed from [facility] Test 22:38:08 [code = FLU VACCINE > 01/22/2022 of Med icine 6 MONTHS] (Postpone Reason: Patient declined today) Future Scheduled 2022-05-06 BMI FOLLOW UP PLAN [employer] Test 22:38:08 [code = BMI FOLLOW UP of Med icine PLAN] Future Scheduled 2022-05-06 Screening for [facility] 22:38:08 malignant neoplasm of of Med icine breast (procedure) [code = 666567951] Future Scheduled 2022-05-06 Screening for [facility] Test 22:38:08 malignant neoplasm of of Med icine cervix (procedure) [code = 778389647] Future Scheduled 2022-05-06 TETANUS SHOT (ADULT) [place] [employer] [facility] 22:38:08 [code = TETANUS SHOT of Medi cine (ADULT)] Future Scheduled 2022-04-30 CT SINUS W FUSION 1 Occurrences [employer] Test 10:15:04 [code = 88243] starting of Medicine 04/30/2022 until 04/30/2023 Future Scheduled 2022-04-24 Screening for [facility] Test 14:51:25 malignant neoplasm of of Med icine colon (procedure) [code = 972435478] Future Scheduled 2022-04-24 COVID-19 Vaccine (3 - [facility] Test 14:51:25 Moderna risk series) of Medi cine [code = COVID-19 Vaccine (3 - Moderna risk series)] Future Scheduled 2022-04-24 FLU VACCINE > 6 MONTHS Postponed from [facility] [employer] Test 14:51:25 [code = FLU VACCINE > 01/22/2022 of Med icine 6 MONTHS] (Postpone Reason: Patient declined today) Future Scheduled 2022-04-24 BMI FOLLOW UP PLAN [employer] Test 14:51:25 [code = BMI FOLLOW UP of Med icine PLAN] Future Scheduled 2022-04-24 Screening for [facility] 14:51:25 malignant neoplasm of of Med icine breast (procedure) [code = 630830070] Future Scheduled 2022-04-24 Screening for [facility] Test 14:51:25 malignant neoplasm of of Med icine cervix (procedure) [code = 818942815] Future Scheduled 2022-04-24 TETANUS SHOT (ADULT) [employer] Test 14:51:25 [code = TETANUS SHOT of Medi cine (ADULT)] Future Scheduled 2022-04-10 Screening for [facility] Test 06:58:13 malignant neoplasm of of Med icine colon (procedure) [code = 518569858] Future Scheduled 2022-04-10 COVID-19 Vaccine (3 - [facility] [employer] Test 06:58:13 Moderna risk series) of Medi cine [code = COVID-19 Vaccine (3 - Moderna risk series)] Future Scheduled 2022-04-10 FLU VACCINE > 6 MONTHS Postponed from [employer] Test 06:58:13 [code = FLU VACCINE > 01/22/2022 of Med icine 6 MONTHS] (Postpone Reason: Patient declined today) Future Scheduled 2022-04-10 BMI FOLLOW UP PLAN [employer] Test 06:58:13 [code = BMI FOLLOW UP of Med icine PLAN] Future Scheduled 2022-04-10 Screening for [facility] Test 06:58:13 malignant neoplasm of of Med icine breast (procedure) [code = 771783964] Future Scheduled 2022-04-10 Screening for [facility] 06:58:13 malignant neoplasm of of Med icine cervix (procedure) [code = 982071669] Future Scheduled 2022-04-10 TETANUS SHOT (ADULT) [employer] Test 06:58:13 [code = TETANUS SHOT of Medi cine (ADULT)] Future Scheduled 2022-04-09 Screening for [facility] 17:05:18 malignant neoplasm of of Med icine colon (procedure) [code = 972048175] Future Scheduled 2022-04-09 COVID-19 Vaccine (3 - [employer] Test 17:05:18 Moderna risk series) of Medi cine [code = COVID-19 Vaccine (3 - Moderna risk series)] Future Scheduled 2022-04-09 FLU VACCINE > 6 MONTHS Postponed from [employer] Test 17:05:18 [code = FLU VACCINE > 01/22/2022 of Med icine 6 MONTHS] (Postpone Reason: Patient declined today) Future Scheduled 2022-04-09 BMI FOLLOW UP PLAN [employer] Test 17:05:18 [code = BMI FOLLOW UP of Med icine PLAN] Future Scheduled 2022-04-09 Screening for [facility] 17:05:18 malignant neoplasm of of Med icine breast (procedure) [code = 743697466] Future Scheduled 2022-04-09 Screening for [facility] Test 17:05:18 malignant neoplasm of of Med icine cervix (procedure) [code = 036057259] Future Scheduled 2022-04-09 TETANUS SHOT (ADULT) [place] [employer] Test 17:05:18 [code = TETANUS SHOT of Medi cine (ADULT)] Future Scheduled 2022-04-09 EMG NEUROLOGY [code = Ordered: [facility] Test 11:11:17 NOCPT] 04/09/2022 of Medicine Future Scheduled 2022-04-09 EMG PM&R [code = 1 Occurrences [facility] Test 11:06:28 80574] starting of Medicine 04/09/2022 until 04/09/2023 Future Scheduled 2022-03-30 Pneumococcal Combined [facility] Test 08:28:24 (2 - PPSV23 or PCV20) of Med icine [code = Pneumococcal Combined (2 - PPSV23 or PCV20)] Future Scheduled 2022-03-30 Screening for [facility] Test 08:28:24 malignant neoplasm of of Med icine colon (procedure) [code = 317977348] Future Scheduled 2022-03-30 COVID-19 Vaccine (3 - [facility] Test 08:28:24 Moderna risk series) of Medi cine [code = COVID-19 Vaccine (3 - Moderna risk series)] Future Scheduled 2022-03-30 FLU VACCINE > 6 MONTHS Postponed from [facility] Test 08:28:24 [code = FLU VACCINE > 01/22/2022 of Med icine 6 MONTHS] (Postpone Reason: Patient declined today) Future Scheduled 2022-03-30 BMI FOLLOW UP PLAN [facility] Test 08:28:24 [code = BMI FOLLOW UP of Med icine PLAN] Future Scheduled 2022-03-30 Screening for [facility] Test 08:28:24 malignant neoplasm of of Med icine breast (procedure) [code = 328317655] Future Scheduled 2022-03-30 Screening for [facility] Test 08:28:24 malignant neoplasm of of Med icine cervix (procedure) [code = 337175941] Future Scheduled 2022-03-30 TETANUS SHOT (ADULT) [place] [employer] [facility] 08:28:24 [code = TETANUS SHOT of Medi cine (ADULT)] Future Scheduled 2022-03-17 Pneumococcal Combined [employer] Test 10:49:37 (2 - PPSV23 or PCV20) of Med icine [code = Pneumococcal Combined (2 - PPSV23 or PCV20)] Future Scheduled 2022-03-17 [facility] 10:49:37 [code = MEDICARE AWV of Medi cine (Initial)] Future Scheduled 2022-03-17 Screening for [facility] 10:49:37 malignant neoplasm of of Med icine colon (procedure) [code = 938935181] Future Scheduled 2022-03-17 COVID-19 Vaccine (3 - [employer] Test 10:49:37 Moderna risk series) of Medi cine [code = COVID-19 Vaccine (3 - Moderna risk series)] Future Scheduled 2022-03-17 FLU VACCINE > 6 MONTHS Postponed from [facility] Test 10:49:37 [code = FLU VACCINE > 01/22/2022 of Med icine 6 MONTHS] (Postpone Reason: Patient declined today) Future Scheduled 2022-03-17 BMI FOLLOW UP PLAN [facility] Test 10:49:37 [code = BMI FOLLOW UP of Med icine PLAN] Future Scheduled 2022-03-17 Screening for [facility] Test 10:49:37 malignant neoplasm of of Med icine breast (procedure) [code = 931320288] Future Scheduled 2022-03-17 Screening for [facility] Test 10:49:37 malignant neoplasm of of Med icine cervix (procedure) [code = 081231151] Future Scheduled 2022-03-17 TETANUS SHOT (ADULT) [place] [facility] Test 10:49:37 [code = TETANUS SHOT of Medi cine (ADULT)] Future Scheduled 2022-03-12 PARANEOPLASTIC PANEL, Ordered: [employer] Test 14:20:17 W RFL (SERUM) [code = 03/12/2022 of Med icine NOCPT] Future Scheduled 2022-03-12 LACTATE [code = Ordered: [facility] Test 14:20:17 [id number]] 03/12/2022 of Medicine Future Scheduled 2022-03-12 MRI BRAIN WO CONTRAST 1 Occurrences [facility] Test 14:20:17 [code = 91927-9] starting of Medicine 03/12/2022 until 03/12/2023 Future Scheduled 2022-03-08 Pneumococcal Combined [employer] Test 08:55:31 (2 - PPSV23 or PCV20) of Med icine [code = Pneumococcal Combined (2 - PPSV23 or PCV20)] Future Scheduled 2022-03-08 MEDICARE AWV (Initial) [facility] [employer] Test 08:55:31 [code = MEDICARE AWV of Medi cine (Initial)] Future Scheduled 2022-03-08 Screening for [facility] Test 08:55:31 malignant neoplasm of of Med icine colon (procedure) [code = 481360664] Future Scheduled 2022-03-08 COVID-19 Vaccine (3 - [employer] Test 08:55:31 Moderna risk series) of Medi cine [code = COVID-19 Vaccine (3 - Moderna risk series)] Future Scheduled 2022-03-08 FLU VACCINE > 6 MONTHS Postponed from [facility] Test 08:55:31 [code = FLU VACCINE > 01/22/2022 of Med icine 6 MONTHS] (Postpone Reason: Patient declined today) Future Scheduled 2022-03-08 BMI FOLLOW UP PLAN [employer] Test 08:55:31 [code = BMI FOLLOW UP of Med icine PLAN] Future Scheduled 2022-03-08 Screening for [facility] Test 08:55:31 malignant neoplasm of of Med icine breast (procedure) [code = 358539835] Future Scheduled 2022-03-08 Screening for [facility] Test 08:55:31 malignant neoplasm of of Med icine cervix (procedure) [code = 398468934] Future Scheduled 2022-03-08 TETANUS SHOT (ADULT) [place] [employer] [facility] 08:55:31 [code = TETANUS SHOT of Medi cine (ADULT)] Future Scheduled 2022-03-07 CBC W/AUTO DIFF WITH Ordered: [place] [employer] Test 12:22:04 PLATELETS [code = 03/07/2022 of Medicin e 50558-1] Future Scheduled 2022-03-07 COMPREHENSIVE Ordered: [facility] Test 12:22:04 METABOLIC PANEL [code 03/07/2022 of Med icine = 44282-0] Future Scheduled 2022-03-07 CK [code = 2157-6] Ordered: [employer] Test 12:22:04 03/07/2022 of Medicine Future Scheduled 2022-03-07 C-REACTIVE PROTEIN Ordered: [employer] Test 12:22:04 [code = 1988-5] 03/07/2022 of Medicine Future Scheduled 2022-03-07 SEDIMENTATION RATE Ordered: [employer] Test 12:22:04 MODIFIED WESTERGREN 03/07/2022 of Medic ine [code = 4537-7] Future Scheduled 2022-03-07 WARREN W REFLEX TITER Ordered: [employer] Test 12:22:04 [code = NOCPT] 03/07/2022 of Medicine Future Scheduled 2022-03-07 CARDIOLIPIN ANTIBODIES Ordered: [facility] [employer] [facility] 12:22:04 [code = 14805] 03/07/2022 of Medicine Future Scheduled 2022-03-07 BETA-2 GLYCOPROTEIN Ordered: [employer] [facility] 12:22:04 ANTIBODIES [code = 03/07/2022 of Medici ne 1951-] Future Scheduled 2022-03-07 LUPUS ANTICOAGULANT Ordered: [employer] [facility] 12:22:04 WITH REFLEX [code = 03/07/2022 of Medic ine NOCPT] Future Scheduled 2022-03-07 RHEUMATOID FACTOR Ordered: [facility] [employer] Test 12:22:04 [code = 26629-1] 03/07/2022 of Medicine Future Scheduled 2022-03-07 SUPERVISOR MOLD CONSTRUCTION ANTIBODY [code = Ordered: [place] [employer] [facility] 12:22:04 NOCPT] 03/07/2022 of Medicine Future Scheduled 2022-03-07 BRADSHAW (SM) ANTIBODY Ordered: [employer] [facility] 12:22:04 [code = 82550-7] 03/07/2022 of Medicine Future Scheduled 2022-03-07 SJOGREN'S SS-A AND Ordered: [employer] Test 12:22:04 SS-B ANTIBODIES [code 03/07/2022 of Med icine = NOCPT] Future Scheduled 2022-03-07 DNA (DS) ANTIBODY, Ordered: [employer] Test 12:22:04 CRITHIDIA IFA W/RX 03/07/2022 of Medici ne TITER [code = 6457-6] Future Scheduled 2022-03-07 COMPLEMENT C3 AND C4 Ordered: [place] [employer] [facility] 12:22:04 [code = NOCPT] 03/07/2022 of Medicine Future Scheduled 2022-03-07 URINALYSIS, COMPLETE Ordered: [facility] Test 12:22:04 W/REFLEX TO CULTURE 03/07/2022 of Medic ine [code = 61444-9] Future Scheduled 2022-03-07 RANDOM URINE Ordered: [facility] Test 12:22:04 PROTEIN/CREATININE 03/07/2022 of Medici ne [code = 2890-2] Future Scheduled 2022-03-07 Pneumococcal Combined Ba [facility] Test 11:56:57 (2 - PPSV23 or PCV20) of Med icine [code = Pneumococcal Combined (2 - PPSV23 or PCV20)] Future Scheduled 2022-03-07 MEDICARE AWV (Initial) B [facility] Test 11:56:57 [code = MEDICARE AWV of Medi cine (Initial)] Future Scheduled 2022-03-07 Screening for [facility] Test 11:56:57 malignant neoplasm of of Med icine colon (procedure) [code = 033732615] Future Scheduled 2022-03-07 COVID-19 Vaccine (3 - [facility] Test 11:56:57 Moderna risk series) of Medi cine [code = COVID-19 Vaccine (3 - Moderna risk series)] Future Scheduled 2022-03-07 FLU VACCINE > 6 MONTHS Postponed from [facility] Test 11:56:57 [code = FLU VACCINE > 01/22/2022 of Med icine 6 MONTHS] (Postpone Reason: Patient declined today) Future Scheduled 2022-03-07 BMI FOLLOW UP PLAN [facility] Test 11:56:57 [code = BMI FOLLOW UP of Med icine PLAN] Future Scheduled 2022-03-07 Screening for [facility] Test 11:56:57 malignant neoplasm of of Med icine breast (procedure) [code = 870537022] Future Scheduled 2022-03-07 Screening for [facility] Test 11:56:57 malignant neoplasm of of Med icine cervix (procedure) [code = 151564959] Future Scheduled 2022-03-07 TETANUS SHOT (ADULT) [place] [facility] Test 11:56:57 [code = TETANUS SHOT of Medi cine (ADULT)] Future Scheduled 2022-03-06 MRI CERVICAL SPINE WO 1 Occurrences [facility] Test 14:50:01 CONTRAST [code = starting of [facility] 01363-6] 03/06/2022 until 03/06/2023 Future Scheduled 2022-02-22 INFLUENZA VACCINE (#1) [facility] 00:00:00 [code = INFLUENZA Medical Ce nter VACCINE (#1)] Future Scheduled 2022-02-21 Human immunodeficiency B [facility] Test 12:57:58 virus screening of Medicine (procedure) [code = 430463430] Future Scheduled 2022-02-21 Pneumococcal Combined Ba [facility] Test 12:57:58 (2 - PPSV23 or PCV20) of Med icine [code = Pneumococcal Combined (2 - PPSV23 or PCV20)] Future Scheduled 2022-02-21 MEDICARE AWV (Initial) B [facility] Test 12:57:58 [code = MEDICARE AWV of Medi cine (Initial)] Future Scheduled 2022-02-21 Screening for [facility] Test 12:57:58 malignant neoplasm of of Med icine colon (procedure) [code = 782852435] Future Scheduled 2022-02-21 COVID-19 Vaccine (3 - [facility] Test 12:57:58 Moderna risk series) of Medi cine [code = COVID-19 Vaccine (3 - Moderna risk series)] Future Scheduled 2022-02-21 FLU VACCINE > 6 MONTHS Postponed from [facility] Test 12:57:58 [code = FLU VACCINE > 01/22/2022 of Med icine 6 MONTHS] (Postpone Reason: Patient declined today) Future Scheduled 2022-02-21 BMI FOLLOW UP PLAN [facility] Test 12:57:58 [code = BMI FOLLOW UP of Med icine PLAN] Future Scheduled 2022-02-21 Screening for [facility] 12:57:58 malignant neoplasm of of Med icine breast (procedure) [code = 334741678] Future Scheduled 2022-02-21 Screening for [facility] Test 12:57:58 malignant neoplasm of of Med icine cervix (procedure) [code = 683996775] Future Scheduled 2022-02-21 TETANUS SHOT (ADULT) [facility] Test 12:57:58 [code = TETANUS SHOT of Medi cine (ADULT)] Future Scheduled 2022-02-21 URINALYSIS, COMPLETE Ordered: [facility] Test 12:24:24 W/REFLEX TO CULTURE 02/21/2022 of Medic ine [code = 32386-6] Future Scheduled 2022-02-21 CBC W/AUTO DIFF WITH Ordered: [place] [facility] Test 12:16:08 PLATELETS [code = 02/21/2022 of Medicin e 91652-1] Future Scheduled 2022-02-21 COMPREHENSIVE Ordered: [facility] Test 12:16:08 METABOLIC PANEL [code 02/21/2022 of Med icine = 90496-5] Future Scheduled 2022-01-28 Screening for [facility] Test 10:06:50 malignant neoplasm of of Med icine breast (procedure) [code = 348389989] Future Scheduled 2022-01-28 Human immunodeficiency B [facility] Test 10:06:50 virus screening of Medicine (procedure) [code = 503304597] Future Scheduled 2022-01-28 Pneumococcal Combined [facility] Test 10:06:50 (2 - PPSV23 or PCV20) of Med icine [code = Pneumococcal Combined (2 - PPSV23 or PCV20)] Future Scheduled 2022-01-28 Screening for [facility] Test 10:06:50 malignant neoplasm of of Med icine colon (procedure) [code = 500516289] Future Scheduled 2022-01-28 COVID-19 Vaccine (3 - [facility] Test 10:06:50 Moderna risk series) of Medi cine [code = COVID-19 Vaccine (3 - Moderna risk series)] Future Scheduled 2022-01-28 FLU VACCINE > 6 MONTHS Postponed from [facility] Test 10:06:50 [code = FLU VACCINE > 01/22/2022 of Med icine 6 MONTHS] (Postpone Reason: Patient declined today) Future Scheduled 2022-01-28 BMI FOLLOW UP PLAN [facility] Test 10:06:50 [code = BMI FOLLOW UP of Med icine PLAN] Future Scheduled 2022-01-28 Screening for [facility] Test 10:06:50 malignant neoplasm of of Med icine cervix (procedure) [code = 066797418] Future Scheduled 2022-01-28 TETANUS SHOT (ADULT) [place] [facility] Test 10:06:50 [code = TETANUS SHOT of Medi cine (ADULT)] Future Scheduled 2022-01-24 Screening for [facility] Test 12:15:08 malignant neoplasm of of Med icine breast (procedure) [code = 188723783] Future Scheduled 2022-01-24 Human immunodeficiency B [facility] Test 12:15:08 virus screening of Medicine (procedure) [code = 735164699] Future Scheduled 2022-01-24 Pneumococcal Combined [facility] Test 12:15:08 (2 - PPSV23 or PCV20) of Med icine [code = Pneumococcal Combined (2 - PPSV23 or PCV20)] Future Scheduled 2022-01-24 Screening for [facility] Test 12:15:08 malignant neoplasm of of Med icine colon (procedure) [code = 978043308] Future Scheduled 2022-01-24 COVID-19 Vaccine (3 - [facility] Test 12:15:08 Moderna risk series) of Medi cine [code = COVID-19 Vaccine (3 - Moderna risk series)] Future Scheduled 2022-01-24 FLU VACCINE > 6 MONTHS Postponed from [facility] Test 12:15:08 [code = FLU VACCINE > 01/22/2022 of Med icine 6 MONTHS] (Postpone Reason: Patient declined today) Future Scheduled 2022-01-24 BMI FOLLOW UP PLAN [facility] Test 12:15:08 [code = BMI FOLLOW UP of Med icine PLAN] Future Scheduled 2022-01-24 Screening for [facility] Test 12:15:08 malignant neoplasm of of Med icine cervix (procedure) [code = 832375294] Future Scheduled 2022-01-24 TETANUS SHOT (ADULT) [facility] Test 12:15:08 [code = TETANUS SHOT of Medi cine (ADULT)] Future Scheduled 2022-01-23 Screening for [facility] Test 14:14:09 malignant neoplasm of of Med icine breast (procedure) [code = 165314103] Future Scheduled 2022-01-23 Human immunodeficiency B [facility] Test 14:14:09 virus screening of Medicine (procedure) [code = 949383331] Future Scheduled 2022-01-23 Pneumococcal Combined [facility] Test 14:14:09 (2 - PPSV23 or PCV20) of Med icine [code = Pneumococcal Combined (2 - PPSV23 or PCV20)] Future Scheduled 2022-01-23 Screening for [facility] Test 14:14:09 malignant neoplasm of of Med icine colon (procedure) [code = 298388587] Future Scheduled 2022-01-23 COVID-19 Vaccine (3 - [employer] Test 14:14:09 Moderna risk series) of Medi cine [code = COVID-19 Vaccine (3 - Moderna risk series)] Future Scheduled 2022-01-23 FLU VACCINE > 6 MONTHS [facility] [employer] Test 14:14:09 [code = FLU VACCINE > of Med icine 6 MONTHS] Future Scheduled 2022-01-23 BMI FOLLOW UP PLAN [employer] Test 14:14:09 [code = BMI FOLLOW UP of Med icine PLAN] Future Scheduled 2022-01-23 Screening for [facility] Test 14:14:09 malignant neoplasm of of Med icine cervix (procedure) [code = 820633310] Future Scheduled 2022-01-23 TETANUS SHOT (ADULT) [place] [employer] [facility] 14:14:09 [code = TETANUS SHOT of Medi cine (ADULT)] Future Scheduled 2021-11-26 Screening for [facility] Test 15:11:10 malignant neoplasm of of Med icine breast (procedure) [code = 511001892] Future Scheduled 2021-11-26 Human immunodeficiency [facility] [employer] Test 15:11:10 virus screening of Medicine (procedure) [code = 282122971] Future Scheduled 2021-11-26 Pneumococcal Combined [employer] [facility] 15:11:10 (2 - PPSV23 or PCV20) of Med icine [code = Pneumococcal Combined (2 - PPSV23 or PCV20)] Future Scheduled 2021-11-26 Screening for [facility] Test 15:11:10 malignant neoplasm of of Med icine colon (procedure) [code = 685062996] Future Scheduled 2021-11-26 COVID-19 Vaccine (3 - [employer] Test 15:11:10 Moderna risk series) of Medi cine [code = COVID-19 Vaccine (3 - Moderna risk series)] Future Scheduled 2021-11-26 FLU VACCINE > 6 MONTHS [employer] Test 15:11:10 [code = FLU VACCINE > of Med icine 6 MONTHS] Future Scheduled 2021-11-26 BMI FOLLOW UP PLAN [employer] Test 15:11:10 [code = BMI FOLLOW UP of Med icine PLAN] Future Scheduled 2021-11-26 Screening for [facility] Test 15:11:10 malignant neoplasm of of Med icine cervix (procedure) [code = 084775223] Future Scheduled 2021-11-26 TETANUS SHOT (ADULT) [place] [employer] [facility] 15:11:10 [code = TETANUS SHOT of Medi cine (ADULT)] Future Scheduled 2021-11-23 STUDY TILT [code = 1 Occurrences [employer] Test 13:54:54 54829] starting of Medicine 11/23/2021 until 11/23/2022 Future Scheduled 2021-09-08 Screening for [facility] Test 14:45:55 malignant neoplasm of of Med icine breast (procedure) [code = 492797363] Future Scheduled 2021-09-08 BMI FOLLOW UP PLAN [employer] [facility] 14:45:55 [code = BMI FOLLOW UP of Med icine PLAN] Future Scheduled 2021-09-08 [facility] virus screening of Medicine (procedure) [code = 058416902] Future Scheduled 2021-09-08 Pneumococcal Combined [facility] Test 14:45:55 (2 of 4 - PPSV23) of Medicin e [code = Pneumococcal Combined (2 of 4 - PPSV23)] Future Scheduled 2021-09-08 Screening for [facility] Test 14:45:55 malignant neoplasm of of Med icine colon (procedure) [code = 274061910] Future Scheduled 2021-09-08 COVID-19 Vaccine (3 - [employer] [facility] 14:45:55 Moderna risk 4-dose of Medic ine series) [code = COVID-19 Vaccine (3 - Moderna risk 4-dose series)] Future Scheduled 2021-09-08 Screening for [facility] [employer] Test 14:45:55 malignant neoplasm of of Med icine cervix (procedure) [code = 579667308] Future Scheduled 2021-09-08 TETANUS SHOT (ADULT) [employer] 14:45:55 [code = TETANUS SHOT of Medi cine (ADULT)] Future Scheduled 2021-09-08 2019 CORONOVIRUS Ordered: [facility] Test 14:26:57 (COVID-19) ANTIBODY, 09/08/2021 of Medi cine IGG, (S) [code = NOCPT] Future Scheduled 2021-07-02 Screening for [facility] [employer] Test 05:39:12 malignant neoplasm of of Med icine breast (procedure) [code = 834586616] Future Scheduled 2021-07-02 BMI FOLLOW UP PLAN [employer] Test 05:39:12 [code = BMI FOLLOW UP of Med icine PLAN] Future Scheduled 2021-07-02 Human immunodeficiency [employer] Test 05:39:12 virus screening of Medicine (procedure) [code = 221563718] Future Scheduled 2021-07-02 Pneumococcal Combined [employer] Test 05:39:12 (2 of 4 - PPSV23) of Medicin e [code = Pneumococcal Combined (2 of 4 - PPSV23)] Future Scheduled 2021-07-02 Screening for [employer] [facility] 05:39:12 malignant neoplasm of of Med icine colon (procedure) [code = 384198034] Future Scheduled 2021-07-02 Screening for [employer] [facility] 05:39:12 malignant neoplasm of of Med icine cervix (procedure) [code = 102855342] Future Scheduled 2021-07-02 TETANUS SHOT (ADULT) [employer] 05:39:12 [code = TETANUS SHOT of Medi cine (ADULT)] Future Scheduled 2021-06-27 [place] OCCUPATIONAL Ordered: [facility] [employer] Test 13:19:30 THERAPY EVAL LOW 06/27/2021 of Medicine COMPLEX 30 MINS [code = 39542] Future Scheduled 2021-06-27 [place] CANALITH Ordered: [facility] [employer] Test 13:19:30 REPOSITIONING 06/27/2021 of Medicine PROCEDURE, PER DAY [code = 20745] Future Scheduled 2021-06-27 Screening for [facility] [employer] Test 11:33:45 malignant neoplasm of of Med icine breast (procedure) [code = 447618439] Future Scheduled 2021-06-27 BMI FOLLOW UP PLAN [employer] 11:33:45 [code = BMI FOLLOW UP of Med icine PLAN] Future Scheduled 2021-06-27 Human immunodeficiency [employer] 11:33:45 virus screening of Medicine (procedure) [code = 300456859] Future Scheduled 2021-06-27 Pneumococcal Combined [employer] Test 11:33:45 (2 of 4 - PPSV23) of Medicin e [code = Pneumococcal Combined (2 of 4 - PPSV23)] Future Scheduled 2021-06-27 Screening for [employer] 11:33:45 malignant neoplasm of of Med icine colon (procedure) [code = 977218686] Future Scheduled 2021-06-27 Screening for [employer] 11:33:45 malignant neoplasm of of Med icine cervix (procedure) [code = 316260179] Future Scheduled 2021-06-27 TETANUS SHOT (ADULT) [employer] 11:33:45 [code = TETANUS SHOT of Medi cine (ADULT)] Future Scheduled 2021-05-03 Screening for [employer] 13:26:26 malignant neoplasm of of Med icine breast (procedure) [code = 213729805] Future Scheduled 2021-05-03 BMI FOLLOW UP PLAN [employer] Test 13:26:26 [code = BMI FOLLOW UP of Med icine PLAN] Future Scheduled 2021-05-03 Human immunodeficiency [facility] [employer] Test 13:26:26 virus screening of Medicine (procedure) [code = 143300167] Future Scheduled 2021-05-03 Screening for [facility] [employer] Test 13:26:26 malignant neoplasm of of Med icine colon (procedure) [code = 696041722] Future Scheduled 2021-05-03 Screening for [employer] 13:26:26 malignant neoplasm of of Med icine cervix (procedure) [code = 780680684] Future Scheduled 2021-05-03 TETANUS SHOT (ADULT) [employer] 13:26:26 [code = TETANUS SHOT of Medi cine (ADULT)] Future Scheduled 2021-05-03 CBC W/AUTO DIFF WITH Ordered: [employer] 11:50:49 PLATELETS [code = 05/03/2021 of Medicin e 25807-3] Future Scheduled 2021-05-03 COMPREHENSIVE Ordered: [employer] 11:50:49 METABOLIC PANEL [code 05/03/2021 of Med icine = 11396-8] Future Scheduled 2021-05-03 SEDIMENTATION RATE Ordered: [employer] 11:50:49 MODIFIED AREN 05/03/2021 of Medic ine [code = 4537-7] Future Scheduled 2021-05-03 C-REACTIVE PROTEIN Ordered: [employer] 11:50:49 [code = 1988-5] 05/03/2021 of Medicine Future Scheduled 2021-05-03 QUANTIFERON TB GOLD Ordered: [employer] 11:50:49 PLUS 4 TUBES [code = 05/03/2021 of [employer] 52441-7] Future Scheduled 2021-03-08 Screening for [facility] [employer] Test 00:12:52 malignant neoplasm of of Med icine breast (procedure) [code = 070078162] Future Scheduled 2021-03-08 BMI FOLLOW UP PLAN [employer] 00:12:52 [code = BMI FOLLOW UP of Med icine PLAN] Future Scheduled 2021-03-08 Human immunodeficiency [employer] 00:12:52 virus screening of Medicine (procedure) [code = 826991477] Future Scheduled 2021-03-08 FLU VACCINE > 6 MONTHS [employer] 00:12:52 [code = FLU VACCINE > of Med icine 6 MONTHS] Future Scheduled 2021-03-08 Screening for [facility] [employer] Test 00:12:52 malignant neoplasm of of Med icine colon (procedure) [code = 255258121] Future Scheduled 2021-03-08 Screening for [employer] 00:12:52 malignant neoplasm of of Med icine cervix (procedure) [code = 395993438] Future Scheduled 2021-03-08 TETANUS SHOT (ADULT) [employer] 00:12:52 [code = TETANUS SHOT of Medi cine (ADULT)] Future Scheduled 2021-03-08 Screening for [facility] [employer] Test 00:12:52 malignant neoplasm of of Med icine breast (procedure) [code = 116435755] Future Scheduled 2021-03-08 BMI FOLLOW UP PLAN [employer] 00:12:52 [code = BMI FOLLOW UP of Med icine PLAN] Future Scheduled 2021-03-08 Human immunodeficiency [employer] Test 00:12:52 virus screening of Medicine (procedure) [code = 439746164] Future Scheduled 2021-03-08 FLU VACCINE > 6 MONTHS [employer] 00:12:52 [code = FLU VACCINE > of Med icine 6 MONTHS] Future Scheduled 2021-03-08 Screening for [facility] [employer] Test 00:12:52 malignant neoplasm of of Med icine colon (procedure) [code = 529014598] Future Scheduled 2021-03-08 Screening for [employer] 00:12:52 malignant neoplasm of of Med icine cervix (procedure) [code = 314174448] Future Scheduled 2021-03-08 TETANUS SHOT (ADULT) [employer] 00:12:52 [code = TETANUS SHOT of Medi cine (ADULT)] Future Scheduled 2020-12-02 CBC W/AUTO DIFF WITH Ordered: [place] [employer] 11:55:43 PLATELETS [code = 12/02/2020 of Medicin e 47288-1] Future Scheduled 2020-12-02 COMPREHENSIVE Ordered: [employer] 11:55:43 METABOLIC PANEL [code 12/02/2020 of Med icine = 32447-8] Future Scheduled 2020-12-02 Screening for [employer] 11:34:58 malignant neoplasm of of Med icine breast (procedure) [code = 353891836] Future Scheduled 2020-12-02 BMI FOLLOW UP PLAN [employer] 11:34:58 [code = BMI FOLLOW UP of Med icine PLAN] Future Scheduled 2020-12-02 Human immunodeficiency [employer] 11:34:58 virus screening of Medicine (procedure) [code = 101576507] Future Scheduled 2020-12-02 FLU VACCINE > 6 MONTHS [employer] 11:34:58 [code = FLU VACCINE > of Med icine 6 MONTHS] Future Scheduled 2020-12-02 Screening for [facility] [employer] Test 11:34:58 malignant neoplasm of of Med icine colon (procedure) [code = 701290176] Future Scheduled 2020-12-02 Screening for [facility] [employer] Test 11:34:58 malignant neoplasm of of Med icine cervix (procedure) [code = 933266179] Future Scheduled 2020-12-02 TETANUS SHOT (ADULT) [employer] 11:34:58 [code = TETANUS SHOT of Medi cine (ADULT)] Future Scheduled 2020-11-14 Screening for [employer] 09:41:53 malignant neoplasm of of Med icine breast (procedure) [code = 013815792] Future Scheduled 2020-11-14 BMI FOLLOW UP PLAN [employer] 09:41:53 [code = BMI FOLLOW UP of Med icine PLAN] Future Scheduled 2020-11-14 Human immunodeficiency [employer] Test 09:41:53 virus screening of Medicine (procedure) [code = 449654053] Future Scheduled 2020-11-14 FLU VACCINE > 6 MONTHS [employer] 09:41:53 [code = FLU VACCINE > of Med icine 6 MONTHS] Future Scheduled 2020-11-14 Screening for [employer] 09:41:53 malignant neoplasm of of Med icine colon (procedure) [code = 408402835] Future Scheduled 2020-11-14 Screening for [employer] 09:41:53 malignant neoplasm of of Med icine cervix (procedure) [code = 503703625] Future Scheduled 2020-11-14 TETANUS SHOT (ADULT) [employer] 09:41:53 [code = TETANUS SHOT of Medi cine (ADULT)] Diagnostic Test 2019-04-13 [LH] GC/CT by [facility]mp Det [facility] 00:00:00 (APTIMA) [code = [LH] GC/CT by Amp Det (APTIMA)] Diagnostic Test 2019-04-09 Colonoscopy [code = [facility] 00:00:00 [id number]] Diagnostic Test 2019-04-09 Colonoscopy [facility] 00:00:00 [id number]] Diagnostic Test 2019-04-09 Colonoscopy [code = [facility] 00:00:00 [id number]] Diagnostic Test 2019-04-08 MR Shoulder [facility] 00:[facility]:00 contrast 16434 [code = 94137] Diagnostic Test 2019-04-08 MR Shoulder wo [facility] 00:00:00 contrast 62192 [code = 55039] Diagnostic Test 2019-03-30 Colonoscopy [facility] 00:00:00 [id number]] Diagnostic Test 2019-03-30 Colonoscopy [facility] 00:00:00 [id number]] Diagnostic Test 2019-03-30 Colonoscopy [code = [facility] 00:00:00 [id number]] Diagnostic Test 2019-03-30 Colonoscopy [code = [facility] 00:00:00 [id number]] Diagnostic Test 2019-01-14 Complete PFTs w/DLCO [facility] 00:00:00 and Lung Volumes [code = Complete PFTs w/DLCO and Lung Volumes] Diagnostic Test 2019-01-14 [facility] 00:00:00 Study Split Night [code = [facility] Sleep Lab - Sleep Study Split Night] Diagnostic Test 2019-01-14 [N] 2D Echo complete, [facility] 00:00:00 with Doppler 50706 [code = [N] 2D Echo complete, with Doppler 73860] Diagnostic Test 2019-01-14 [facility] 00:00:00 Study Split Night [code = [facility] Sleep Lab - Sleep Study Split Night] Diagnostic Test 2019-01-14 Complete PFTs w[facility]CO [facility] 00:00:00 and Lung Volumes [code = Complete PFTs w/DLCO and Lung Volumes] Diagnostic Test 2019-01-14 [facility] 00:00:00 Study Split Night [code = [facility] Sleep Lab - Sleep Study Split Night] Diagnostic Test 2019-01-14 [N] 2D Echo complete, [facility] 00:00:00 with Doppler 35727 [code = [N] 2D Echo complete, with Doppler 97780] Future Scheduled [address] [facility] Test 00:00:00 malignant neoplasm of Medica l Center cervix (procedure) [code = 806246653] Future Scheduled 1998 [facility]ITIS [facility] Test 00:00:00 [code = HEPATITIS C [facility] SCREENING] Future Scheduled C-REACTIVE PROTEIN Ordered: [employer] [code = 1988-5] 05/12/2020 of Medicine Future Scheduled SEDIMENTATION RATE Ordered: [employer] MODIFIED AREN 05/12/2020 of Medic ine [code = 4537-7] Future Scheduled HLA-B27 ANTIGEN [code Ordered: [employer] = 31428] 05/12/2020 of Medicine Future Scheduled HEPATITIS B SURFACE AB Ordered: [employer] QUANT [code = 54273-0] 05/12/2020 of Mo ermias Future Scheduled HEPATITIS B SURFACE Ordered: [employer] ANTIGEN [code = 05/12/2020 of Medicine 5196-1] Future Scheduled HEPATITIS B CORE AB Ordered: [employer] TOTAL W/REFL IGM [code 05/12/2020 of Mo dicine = 72297-2] Future Scheduled HEPATITIS C ANTIBODY Ordered: [place] [employer] [code = 46789-1] 05/12/2020 of Medicine Future Scheduled QUANTIFERON TB GOLD Ordered: [facility] or [facility] Test PLUS 4 TUBES [code = 05/12/2020 of Medi cine 71710-2] Future Scheduled BMI FOLLOW UP PLAN [employer] Test [code = BMI FOLLOW UP of Med icine PLAN] Future Scheduled HEPATITIS C SCREENING [employer] [facility] [code = HEPATITIS C of Medic ine SCREENING] Future Scheduled HIV SCREENING [code = [employer] HIV SCREENING] of Medicine Future Scheduled CERVICAL CANCER [facility] C [employer]lege Test SCREENING 3 YEAR of Medicine FOLLOW UP [code = CERVICAL CANCER SCREENING 3 YEAR FOLLOW UP] Future Scheduled COLON CANCER [facility] [employer] Test SCREENING: COLONOSCOPY of Me dicine [code = COLON CANCER SCREENING: COLONOSCOPY] Future Scheduled TETANUS SHOT (ADULT) [employer] [facility] [code = TETANUS SHOT of Medi cine (ADULT)] Future Scheduled C3 COMPLEMENT [code = Ordered: [employer] 4485-9] 05/12/2020 of Medicine Future Scheduled C4 COMPLEMENT [code = Ordered: [employer] 4498-2] 05/12/2020 of Medicine Future Scheduled CBC W/AUTO DIFF WITH Ordered: [facility] [employer] Test PLATELETS [code = 05/12/2020 of Medicin e 97796-5] Future Scheduled COMPREHENSIVE Ordered: [facility] [employer] Test METABOLIC PANEL [code 05/12/2020 of Med icine = 56231-3] Future Scheduled TRYPTASE [code = Ordered: [facility] Test 29662] 05/12/2020 of Medicine Future Scheduled TSH [code = 40952-9] Ordered: [place] [employer] Test 05/12/2020 of Medicine Future Scheduled BMI FOLLOW UP PLAN [employer] Test [code = BMI FOLLOW UP of Med icine PLAN] Future Scheduled HEPATITIS C SCREENING [employer] Test [code = HEPATITIS C of Medic ine SCREENING] Future Scheduled HIV SCREENING [code = [employer] HIV SCREENING] of Medicine Future Scheduled CERVICAL CANCER [facility] [employer] Test SCREENING 3 YEAR of Medicine FOLLOW UP [code = CERVICAL CANCER SCREENING 3 YEAR FOLLOW UP] Future Scheduled COLON CANCER [facility] [employer] Test SCREENING: COLONOSCOPY of Me dicine [code = COLON CANCER SCREENING: COLONOSCOPY] Future Scheduled TETANUS SHOT (ADULT) [employer] Test [code = TETANUS SHOT of Medi cine (ADULT)] Future Scheduled MAMMOGRAM ANNUAL [code [employer] = MAMMOGRAM ANNUAL] of Medic ine Future Scheduled BMI FOLLOW UP PLAN [facility] College Test [code = BMI FOLLOW UP of Med icine PLAN] Future Scheduled HEPATITIS C SCREENING [employer] Test [code = HEPATITIS C of Medic ine SCREENING] Future Scheduled HIV SCREENING [code = [employer] HIV SCREENING] of Medicine Future Scheduled CERVICAL CANCER [facility] C [employer]lege Test SCREENING 3 YEAR of Medicine FOLLOW UP [code = CERVICAL CANCER SCREENING 3 YEAR FOLLOW UP] Future Scheduled COLON CANCER [facility] [employer] Test SCREENING: COLONOSCOPY of Me dicine [code = COLON CANCER SCREENING: COLONOSCOPY] Future Scheduled TETANUS SHOT (ADULT) [facility] Test [code = TETANUS SHOT of Medi cine (ADULT)] Future Scheduled MRI SACRUM WO CONTRAST 1 Occurrences [facility] Test [code = 37636] starting of Medicine 05/12/2020 until 05/12/2021 Encounters Start End Encounter Admission Attending Care Care Encounter Source Date/Time Date/Time Type Type Clinicians Facility Department ID 2021-12-21 Outpatient JANICE MCCOY Surgery [id number] [facility] 11:10:36 [facility] 2021-11-15 Outpatient JANICE MCCOY Surgery [id number] [facility] 13:45:13 [facility] 2021-11-15 Outpatient WILDER MCCOY Surgery [id number] [facility] 13:26:29 [facility] 2021-09-15 Outpatient SHEIKH [facility] [id number] [facility] 08:29:40 [facility] 2021-08-17 Outpatient SHEIKH [facility] Surgery [id number] [facility] 11:05:11 [facility] 2021-03-31 Outpatient TOPHER, [facility] Surgery [id number] [facility] 23:55:24 [facility] 2021-03-31 Outpatient TOPHER, [facility] Surgery [id number] [facility] 23:55:19 [facility] 2021-03-29 Outpatient NACHOAPPATRICK, [facility] Surgery [id number] [facility] 03:49:02 [facility] 2021-03-29 Outpatient NACHOAPPATRICK [facility] Surgery [id number] [facility] 03:04:33 [facility] 2020-11-[address] [facility] [id number] [place] 16:18:38 Critical access hospital 2020-10-[address] [facility] [facility] [id number] [place] 02:42:50 Critical access hospital 2019-10-23 Outpatient NELSON, [facility] [id number] [facility] 07:24:40 ELOISE 2022-07-12 2022-07-12 Outpatient ABRAHAMMICHELLE [facility] [id number] [facility] 00:00:00 00:00:00 [facility] e 2022-07-02 2022-07-02 Outpatient R DANN, [facility] [id number] Univers 13:00:00 13:00:00 JHOANA [facility] 2022-06-29 2022-06-29 Outpatient R YULIET, [facility] [id number] Univers 09:30:00 09:30:00 KERRY [facility] 2022-06-28 2022-06-28 Outpatient R ELROY, [facility] [id number] [facility] 12:00:00 12:00:00 ATTENDING [facility] 2022-06-28 2022-06-28 Outpatient TORIE DONOHUE [facility] [id number] [facility] 00:00:00 00:00:00 [facility] 2022-06-22 2022-06-22 Outpatient Jonathan GALLEGOS, [facility] [id number] Univers 15:50:00 15:50:00 SYDNIE [facility] 2022-06-21 2022-06-21 Outpatient MEG [facility] [id number] [facility] 15:13:56 15:34:24 PERCY e of Medicin e 2022-06-20 2022-06-21 [facility] [id number] [facility] 05:43:00 15:01:00 Encounter Jose Antonio rainey arnel [facility] 2022-06-20 2022-06-21 Inpatient [facility] Surgery [id number] [facility] 05:43:00 15:01:00 JOSE ANTONIO RAINEY 2022-06-20 2022-06-20 Outpatient [facility] [id number] [facility] 05:43:00 23:59:00 Colleg e [facility] Medicin e 2022-06-20 2022-06-20 Anesthesia Benjamin Sy [facility] [id number] [facility] 10:49:00 12:26:00 Event Ziyad Allen [facility] 2022-06-20 2022-06-20 Surgery Lizbeth [facility] [id number] [facility] St 10:10:00 12:10:00 Jose Antonio rainey [facility] 2022-06-20 2022-06-20 Travel [facility] [id number] [facility] 00:00:00 00:00:00 [facility] 2022-06-19 2022-06-19 Outpatient R MONA [facility] [id number] Univers 13:14:16 23:59:00 LEELA valdez [facility] 2022-06-19 2022-06-19 [facility] [id number] Univers 13:14:16 23:59:00 Encounter Leela WHITE [id number] [facility] 4.2.7.2.686 [facility] [id number] [address] 2022-06-19 2022-06-19 Outpatient [facility] [id number] [facility] 00:00:00 23:59:00 Colleg [facility]in [facility] 2022-06-19 2022-06-19 Emergency [facility] [id number] [facility] 18:33:00 20:49:00 , [facility] 2022-06-19 2022-06-19 Emergency ER [facility] Emergency [id number] [facility] 18:33:00 20:49:00 , [facility] 2022-06-19 2022-06-19 Outpatient TAVERITO, [facility] [id number] [facility] 13:07:41 14:06:37 MITA [facility]in [facility] 2022-06-19 2022-06-19 Telephone [facility] [id number] [facility] 00:00:00 00:00:00 Sydnie PRIMARY [id number] it of CARE 4.2.7.2.686 [facility] [id number] [address] 2022-06-19 2022-06-19 Orders [facility] [id number] 00:00:00 00:00:00 Only [facility] 2022-06-19 2022-06-19 Travel [facility] [id number] [facility] 00:00:00 00:00:00 [facility] 2022-06-18 2022-06-18 Telephone [facility] [id number] Univers 00:00:00 00:00:00 [facility] [id number] it y of [place] 4.2.7.2.686 Tim as SILVER?BLEA [id number] [facility] [address] MEDICAL OFFICE BUILDING 2022-06-18 2022-06-18 Nurse ZIYAD Mendenhall [id number] [facility] 00:00:00 00:00:00 Triage [facility] [id number] ity of [facility] 4.2.7.2.686 Tim as [id number] [address] 2022-06-15 2022-06-15 Hospital [facility] [id number] Univers 15:50:58 23:59:00 Encounter Sydnie PRIMARY [id number] ity of C[place]2.686 [place] [id number] Mo [facility]ical [address] 2022-06-15 2022-06-[address] [facility] [id number] Univers 16:00:00 17:05:05 SYDNIE ity of [facility] 2022-06-15 2022-06-15 Office [facility] [id number] Univers 16:00:00 17:05:05 Visit Sydnie PRIMARY [id number] it y of CARE [place]7.2.686 [place] [id number] Mo dical [address] 2022-06-14 2022-06-14 Outpatient ANA LUISAWAGNERBora SLE [facility] [id number] [facility] 12:55:31 23:59:00 ARNELJOSE ANTONIO 2022-06-14 2022-06-14 [facility] Lizbeth [facility] [id number] [facility] 12:30:00 23:59:00 Encounter Jose Antonio rainey [facility] 2022-06-14 2022-06-14 Outpatient EL [facility] [id number] [facility] 12:54:40 12:54:40 2022-06-14 2022-06-14 Telephone Mona [facility] [id number] Univers 00:00:00 00:00:00 [facility] [id number] it y of [place] 4.2.7.2.686 Tim as SILVER?BLEA [id number] [address] OFFICE [facility] 2022-06-14 2022-06-14 Orders Doctor ZIYAD [id number] [id number] Univers 00:00:00 00:00:00 Only Unassigned, TI 350.1.13.10 ity of [place] [facility] 4.2.7.2.686 Tim as [id number] [address] 2022-06-13 2022-06-13 Outpatient MICHELLE VAZQUEZ [facility] [id number] [facility] 14:02:40 15:56:43 HAYLEY caballero of Medicin e 2022-06-13 2022-06-13 Outpatient EL [facility] [id number] [facility] 00:00:00 00:00:00 2022-06-12 2022-06-12 [facility] [id number] [facility] 12:40:38 23:59:00 Encounter [facility] 2022-06-12 2022-06-12 Outpatient EL [facility] [id number] [facility] 12:40:38 23:59:00 2022-06-12 2022-06-12 Outpatient EL [facility] [id number] [facility] 00:00:00 00:00:00 2022-06-11 2022-06-11 Outpatient Jonathan DUNN [facility] [id number] [facility] 13:00:00 15:24:33 LEELA valdez [facility] 2022-06-11 2022-06-11 Office [facility] [id number] Univers 13:00:00 15:24:33 Visit Leela [employer] [id number] it y of [place] 4.2.7.2.686 Tim as SILVER?ETELVINA [id number] Mo ken DUARTE [address] [place] [address] MEDICAL OFFICE [facility] 2022-06-07 2022-06-07 Outpatient SWIFT-BELÉNBora [facility] [id number] [facility] 14:20:48 14:20:48 JOSE ANTONIO RAINEYe of Medicin e 2022-06-07 2022-06-07 Outpatient [facility] [id number] [facility] 10:33:34 13:37:25 Colleg e of Medicin e 2022-06-07 2022-06-07 Outpatient ABRAHAM [facility] [id number] [facility] 09:51:13 09:58:38 [facility]in e 2022-06-06 2022-06-06 Outpatient R GWYN [facility] [id number] Univers 07:30:00 23:59:00 [facility] ity o f [facility] 2022-06-06 2022-06-06 [facility] 1.2.840.114 [id number] Univers 07:30:00 23:59:00 Encounter [facility] 350.1.13.10 ity of [place] 4.2.7.2.686 Alfonso SANDOVAL [id number] [address] OFFICE BUILDING 2022-06-04 2022-06-04 Outpatient R MONA [facility] [id number] Univers 13:00:00 13:00:00 LEELA valdez [facility] 2022-05-31 2022-05-31 Outpatient PARISH FAM [facility] [id number] [facility] 10:05:58 10:05:58 Colleg e of Medicin e 2022-05-30 2022-05-30 Outpatient MARK SCHAEFFER [facility] [id number] [facility] 13:52:35 13:52:35 Colleg e of Medicin e 2022-05-25 2022-05-25 Outpatient MEG [facility] [id number] [facility] 12:47:54 13:07:42 , PERCY Bratong e of Medicin e 2022-05-25 2022-05-25 Outpatient MEG [facility] [id number] [facility] 00:00:00 00:00:00 , PERCY Paniagua e of Medicin e 2022-05-22 2022-05-22 Outpatient LIZBETH [facility] [id number] [facility] 09:12:51 09:30:39 JOSE ANTONIO RAINEY lege of Medicin e 2022-05-09 2022-05-10 Outpatient ANGEL, [facility] [id number] [facility] 12:46:30 09:37:55 PARAM-TEGAN Deangelo ege of Medicin e 2022-05-09 2022-05-09 Surgery [facility] [id number] 15:00:00 15:30:00 [facility] 2022-05-09 2022-05-09 [facility] [id number] 14:49:00 15:20:00 Encounter [facility] 2022-05-09 2022-05-09 Outpatient [facility] Surgery [id number] [facility] 14:49:00 15:20:00 [facility] 2022-05-07 2022-05-08 Outpatient PASCAL, [facility] [id number] [facility] 12:51:13 12:54:08 ILIA [facility]in e 2022-05-07 2022-05-08 Outpatient PASCAL, [facility] [id number] [facility] 12:48:58 12:51:03 ILIA [facility] e [facility] Medicin e 2022-05-07 2022-05-07 Outpatient [facility] [id number] [facility] 11:29:00 23:59:00 Colleg e of Medicin e 2022-05-07 2022-05-07 [facility] [id number] 11:29:00 16:44:00 Encounter [facility] 2022-05-07 2022-05-07 Outpatient EL GWYN, [facility] [id number] [facility] 11:29:00 16:44:00 [facility] 2022-05-07 2022-05-07 [facility] [id number] 14:52:00 15:33:00 Event Willard [facility] 2022-05-07 2022-05-07 Surgery Gwyn, [facility] [id number] 12:30:00 13:30:00 [facility] 2022-05-07 2022-05-07 Travel [facility] [id number] [facility] 00:00:00 00:00:00 [facility] 2022-05-03 2022-05-03 Outpatient LIZBETH [facility] [id number] [facility] 11:29:56 11:54:32 JOSE ANTONIO RAINEY of Medicin e 2022-05-02 2022-05-02 Outpatient EL SLE SLE [id number] SLE 12:26:15 23:59:00 2022-05-02 2022-05-02 [facility] [id number] 11:50:00 23:59:00 [facility] 2022-05-02 2022-05-02 Travel [facility] [id number] [facility] 00:00:00 00:00:00 [facility] 2022-05-01 2022-05-01 Outpatient [facility] [id number] [facility] 14:27:52 15:27:22 Arcelia caballero of Medicin e 2022-04-30 2022-04-30 Office BUCK CASTILLO 1.2.840.114 [id number] [facility] 09:04:45 10:18:53 Visit [facility] AMBULATOR 350.1.13.21 College Y 0.2.7.2.686 of [id number] Medi mari 800 e 2022-04-24 2022-04-24 Office MINGO SHAFFER [facility] 1.2.840.114 [id number] [facility] 13:03:24 13:58:01 Visit AMBULATOR 350.1.13.21 College Y 0.2.7.2.686 of [id number] Medi mari 800 e 2022-04-19 2022-04-19 Outpatient TREVIÑO [facility] [id number] [facility] 11:42:46 11:52:01 Elsi KEARNS of Medicin e 2022-04-09 2022-04-09 Office BUCK AMAYA 1.2.840.114 [id number] [facility] 08:58:00 10:58:40 Visit SAAD AMBULATOR 350.1.13.21 College Y 0.2.7.2.686 of [id number] [facility] mari 600 e 2022-04-09 2022-04-09 Outpatient [facility] [id number] [facility] 09:53:39 09:53:39 Arcelia e of Medicin e 2022-04-09 2022-04-09 [facility]phone [facility] 1.2.840.114 [id number] Univers 00:00:00 00:00:00 [facility] 350.1.13.10 ity of [place] 4.2.7.2.686 Tim as SILVER?BLEA [id number] [address] OFFICE [facility] 2022-04-09 2022-04-09 Telephone Terrance [facility] 1.2.840.114 [id number] Univers 00:00:00 00:00:00 [facility] 350.1.13.10 ity of [place] 4.2.7.2.686 Tim as SILVER?BLEA [id number] [address] OFFICE [facility] 2022-04-05 2022-04-05 Office Meg [facility] 1.2.840.114 [id number] [facility] 14:30:00 16:17:05 Visit , Percy Lawrence AMBULATOR 350.1.13.21 College Y 0.2.7.2.686 of [id number] Medi mari 800 e 2022-04-03 2022-04-03 Outpatient OJ HUERTA [facility] [id number] [facility] 13:40:00 16:19:29 OJ LIN itmyla [facility] 2022-04-03 2022-04-03 Office Terrance [facility] 1.2.840.114 [id number] [facility] 13:40:00 16:19:[address] [facility] 350.1.13.10 it[facility] 4.2.7.2.686 Tim as SILVER?BLEA [id number] [address] OFFICE [facility] 2022-04-03 2022-04-03 Orders Doctor ZIYAD 1.2.840.114 [id number] Univers 00:00:00 00:00:00 Only Unassigned, TI 350.1.13.10 ity of [place] [facility] 4.2.7.2.686 Tim as [id number] [address] 2022-04-03 2022-04-03 Telephone Terrance [facility] 1.2.840.114 [id number] [facility] 00:00:00 00:00:00 [facility] 350.1.13.10 ity of [place] 4.2.7.2.686 Tim as SILVER?BLEA [id number] [address] 2022-04-02 2022-04-02 Outpatient HEMMATI, [facility] [id number] [facility] 10:33:56 11:55:50 LYNDON caballero of Medicin e 2022-03-30 2022-03-30 Outpatient TIGRE, [facility] [id number] [facility] 08:00:27 10:43:29 LEONORA caballero of Medicin e 2022-03-29 2022-03-29 Office Rochelle, [facility] 1.2.840.114 [id number] [facility] 14:30:00 15:30:00 Visit Shelly AMBULATOR 350.1.13.21 College Y 0.2.7.2.686 of [id number] [facility] 810 e 2022-03-23 2022-03-23 Emergency Iruke, 1.2.840.1 [id number] Methodi 00:11:00 02:04:00 Ricci 58286.1.1 850 s t [place] 3.430.2.7 Hospit a .3.560489 l .8 2022-03-23 2022-03-23 Emergency MICHELLE [facility] [id number] [place] 00:00:00 00:00:[address] 2022-03-23 2022-03-23 Travel 1.2.840.1 1.2.771.865 [id number] Methodi 00:00:00 00:00:[address] 3.430.2.7 0.2.7.3.698 Ho spita .3.258929 084.8 l .8 2022-03-21 2022-03-21 Outpatient MEG [facility] [id number] [facility] 10:16:48 11:36:56 , PERCY Colleg e of Medicin e 2022-03-20 2022-03-20 Outpatient CHARANJIT TORIE [facility] [id number] [facility] 17:12:41 17:27:53 Colleg e of Medicin e 2022-03-19 2022-03-19 Outpatient OJ HUERTA [facility] [id number] [facility] 08:40:00 08:40:00 OJ LIN myla [facility] 2022-03-14 2022-03-17 [facility] TrinaAllyson schultz [facility] [id number] [facility] 17:46:00 19:00:00 [facility] 2022-03-14 2022-03-17 Inpatient ER MY [facility] Emergency [id number] [facility] 17:46:00 19:00:00 DONNY 2022-03-16 2022-03-16 Outpatient [facility] [id number] [place] [address] 00:00:00 23:59:00 Colleg e of Medicin e 2022-03-16 2022-03-16 Orders [facility] [id number] [facility] 00:00:00 00:00:00 Only [facility] 2022-03-15 2022-03-15 Travel [facility] [id number] [facility] 00:00:00 00:00:00 [facility] 2022-03-14 2022-03-14 Outpatient [facility] [id number] [facility] 00:00:00 00:00:00 Colleg e of Medicin e 2022-03-14 2022-03-14 [facility] [id number] [facility] 00:00:00 00:00:00 Colleg e of Medicin e 2022-03-12 2022-03-12 Office MICHELLE SMITH 1.2.840.114 [id number] [facility] 13:33:41 15:23:00 Visit LEONORA AMBULATOR 350.1.13.21 College Y 0.2.7.2.686 of [id number] Medi mari 800 e 2022-03-09 2022-03-09 Orders Doctor ZIYAD 1.2.840.[id number] [place] [address] 00:00:00 00:00:00 Only Unassigned, TI 350.1.13.10 ity of [place] [facility] 4.2.7.2.686 Tim as [id number] [facility] tyler [address] 2022-03-08 2022-03-08 Outpatient [facility] [id number] [facility] 14:21:01 23:59:00 2022-03-08 2022-03-08 [facility] [id number] 13:00:00 23:59:00 Encounter [facility] 2022-03-07 2022-03-07 Emergency ER KAYLEN [facility] Emergency [id number] [facility] 16:56:00 20:33:00 [facility] 2022-03-07 2022-03-07 Emergency [facility], [facility] [id number] 16:56:00 20:33:00 [facility] 2022-03-07 2022-03-07 Office Brandt Alvarado [facility] 1.2.840.114 [id number] [facility] 12:00:00 12:30:00 Visit Chuan AMBULATOR 350.1.13.21 College Y 0.2.7.2.686 of [id number] Medi mari 370 e 2022-03-07 2022-03-07 Travel [facility] [id number] [facility] 00:00:00 00:00:00 [facility] 2022-03-06 2022-03-06 Office MEG [facility] 1.2.840.114 [id number] [facility] 13:55:11 15:12:48 Visit PERCY AMBULATOR 350.1.13.21 College Y 0.2.7.2.686 of [id number] Medi mari 800 e 2022-02-28 2022-02-28 Outpatient ROCHELLE [facility] [id number] [facility] 11:04:13 11:30:07 SHELLY Bartong e of Medicin e 2022-02-27 2022-02-27 Outpatient EVANGELIST [facility] [id number] [facility] 12:41:18 13:30:31 JOE mendoza of Medicin e 2022-02-21 2022-02-21 Office BRANDT ALVARADO [facility] 1.2.840.114 [id number] [facility] 11:42:10 14:47:58 Visit AMBULATOR 350.1.13.21 College Y 0.2.7.2.686 of [id number] Medi mari 370 e 2022-02-21 2022-02-21 Outpatient BRUNO [facility] [id number] [facility] 12:59:20 13:56:55 ANEL Bartong e of Medicin e 2022-02-21 2022-02-21 Outpatient [facility] [id number] [facility] 10:48:56 11:53:58 Colleg e of Medicin e 2022-02-12 2022-02-12 Outpatient GRACE [facility] [id number] [facility] 14:28:30 14:53:23 NATIVIDAD Bartong e of Medicin e 2022-02-08 2022-02-08 Outpatient JIGNESH [facility] [id number] [facility] 11:10:52 11:23:14 BRANDT caballero of Medicin e 2022-02-06 2022-02-06 Outpatient MEG [facility] [id number] [facility] 15:50:32 16:56:47 , PERCY Paniagua e of Medicin e 2022-01-24 2022-01-24 Office HANNAH [facility] 1.2.840.114 [id number] [facility] 11:04:24 15:42:18 Visit NEREIDA AMBULATOR 350.1.13.21 College Y 0.2.7.2.686 of [id number] Medi mari 800 e 2022-01-23 2022-01-23 Office BURKEERASMO [facility] 1.2.840.114 [id number] [facility] 08:51:35 10:59:10 Visit SHELLY AMBULATOR 350.1.13.21 College Y 0.2.7.2.686 of [id number] Medi mari 810 e 2022-01-22 2022-01-22 Office Tigre [facility] 1.2.840.114 [id number] [facility] 16:30:00 17:00:00 Visit Leonora AMBULATOR 350.1.13.21 College Bhavana Y 0.2.7.2.686 of [id number] Medi mari 800 e 2022-01-18 2022-01-18 Outpatient ANDI PIERCE [facility] [id number] SLE 13:51:29 23:59:00 [facility] 2022-01-18 2022-01-18 [facility] [id number] 13:00:00 23:59:00 Encounter [facility] 2022-01-15 2022-01-15 Outpatient [facility] [id number] SLE 10:39:36 23:59:00 JOSE ANTONIO RANIEY 2022-01-15 2022-01-15 [facility] [id number] 10:39:36 23:59:00 Encounter Jose Antonio rainey [facility] 2022-01-13 2022-01-13 Outpatient MICHELLE JIMENEZ [facility] [id number] [facility] 12:47:24 13:32:31 MITA Paniagua e of Medicin e 2022-01-09 2022-01-09 Outpatient MEG [facility] [id number] [facility] 14:59:11 15:35:42 PERCY Colleg e of Medicin e 2021-12-29 2021-12-29 Outpatient ANDI PIERCE MUSCOGEEDilan [facility] [id number] SLE 00:00:00 00:00:00 ABDOULAYE 2021-12-28 2021-12-28 Outpatient VASHTI [facility] [id number] [facility] 14:49:51 15:00:04 RAS Barton ge of Medicin e 2021-12-26 2021-12-26 Outpatient KEL, [facility] [id number] [facility] 15:41:39 15:50:12 GERALDO Colleg e of Medicin e 2021-12-26 2021-12-26 Outpatient ANDI FRANCES [facility] [id number] SLE 00:00:00 00:00:00 JOSE ANTONIO RAINEY 2021-12-21 2021-12-21 Outpatient HUDSON [facility] [id number] [facility] 13:40:04 13:50:33 Elsi KEARNS of Medicin e 2021-12-19 2021-12-19 Outpatient ALVARADOBRANDT [facility] [id number] [facility] 15:57:39 16:22:47 Colleg e of Medicin e 2021-12-15 2021-12-15 Outpatient TONY [facility] [id number] [facility] 10:46:21 12:04:39 MITA Colleg e of Medicin e 2021-12-13 2021-12-13 Outpatient ANDI TREVIÑO [facility] [id number] SLE 18:57:08 23:59:00 PABLO KEARNS 2021-12-13 2021-12-13 [facility] [id number] 18:57:08 23:59:00 Encounter Markie Kearns [facility] 2021-12-13 2021-12-13 Outpatient ANDI SLEDilan [facility] [id number] SLE 15:13:57 18:56:00 2021-12-13 2021-12-13 [facility] [id number] 14:30:00 18:56:00 [facility] 2021-12-13 2021-12-13 [facility] [id number] 00:00:00 00:00:00 Orders [facility] 2021-12-08 2021-12-08 Outpatient MEG [facility] [id number] [facility] 16:04:18 17:05:24 , PERCY Paniagua e of Medicin e 2021-12-06 2021-12-06 Outpatient ALEXXDarleneALEAH [facility] [id number] [facility] 00:00:00 00:00:00 JOSE ANTONIO RAINEY 2021-11-23 2021-11-29 Office MICHELLE PIERCE 1.2.840.114 [id number] [facility] 12:23:45 19:53:49 Visit ABDOULAYE AMBULATOR 350.1.13.21 College Y 0.2.7.2.686 of [id number] Medi mari 375 e 2021-11-21 2021-11-21 Outpatient [facility] [id number] [facility] 09:33:02 23:59:00 Colleg e of Medicin e 2021-11-21 2021-11-21 Outpatient EVANGELIST [facility] [id number] [facility] 15:52:03 16:11:58 JOE mendoza of Medicin e 2021-11-15 2021-11-15 Outside Arelibora [facility] [id number] 00:00:00 00:00:00 Orders arnelJose Antonio [facility] 2021-11-14 2021-11-14 Outpatient ARELIBora [facility] [id number] [facility] 11:26:15 11:54:44 JOSE ANTONIO RAINEY of Medicin e 2021-11-08 2021-11-08 Outpatient MEG [facility] [id number] [facility] 10:45:10 11:26:55 , PERCY Paniagua e of Medicin e 2021-11-07 2021-11-07 Outpatient [facility] [id number] [facility] 12:25:06 19:34:43 Colleg e of Medicin e 2021-11-06 2021-11-06 Outpatient HUDSON [facility] [id number] [facility] 13:01:13 13:16:00 Elsi KEARNS of Medicin e 2021-11-06 2021-11-06 Outside Yann [facility] [id number] 00:00:00 00:00:00 Orders [facility] 2021-11-02 2021-11-02 Outpatient KAMERON MARIANO [facility] [id number] [facility] 11:13:16 11:46:07 Colleg e of Medicin e 2021-10-04 2021-10-04 Outpatient MEG [facility] [id number] [facility] 14:40:16 15:30:50 PERCY Colleg e of Medicin e 2021-10-04 2021-10-04 Outpatient KALINA [facility] [id number] [facility] 11:02:47 11:22:43 DAVID Colleg e of Medicin e 2021-10-03 2021-10-04 Emergency ER [facility] Emergency [id number] [facility] 18:27:00 00:06:00 [facility] 2021-10-03 2021-10-04 Emergency [facility] [id number] [facility] [address] 18:27:00 00:06:00 [facility] 2021-10-03 2021-10-03 Outpatient [facility] [id number] [facility] 00:00:00 23:59:00 Colleg e of Medicin e 2021-10-03 2021-10-03 Orders [facility] [id number] 00:00:00 00:00:00 Only [facility] 2021-10-03 2021-10-03 Travel [facility] [id number] [facility] 00:00:00 00:00:00 [facility] 2021-10-02 2021-10-02 Outpatient MONTSERRAT KAMERON [facility] [id number] [facility] 11:10:31 11:36:49 Colleg e of Medicin e 2021-09-29 2021-09-29 Outpatient [facility] [id number] [facility] 13:53:41 19:33:14 Colleg e of Medicin e 2021-09-08 2021-09-08 Outpatient [facility] [id number] [facility] 14:39:29 15:57:38 Colleg e of Medicin e 2021-09-08 2021-09-08 Office Brandt Alvarado [facility] 1.2.840.114 [id number] [facility] 14:00:00 14:29:40 Visit Chuan AMBULATOR 350.1.13.21 College Y 0.2.7.2.686 of [id number] Medi mari 370 e 2021-09-07 2021-09-07 Outpatient TAW, [facility] [id number] [facility] 11:19:54 12:14:35 MITA Colleg e of Medicin e 2021-09-01 2021-09-01 Outpatient BHARATHUI [facility] [id number] [facility] 09:10:31 09:39:43 , PERCY Colleg e of Medicin e 2021-08-30 2021-08-30 Outpatient BHARAT-HUI [facility] [id number] [facility] 09:07:34 09:43:49 , PERCY Colleg e of Medicin e 2021-08-28 2021-08-28 Outpatient TAVERITO, [facility] [id number] [facility] 09:29:31 10:12:55 MITA Colleg e of Medicin e 2021-08-25 2021-08-25 Outpatient BHARAT-HUI [facility] [id number] [facility] 14:51:23 15:08:58 , PERCY Colleg e of Medicin e 2021-08-22 2021-08-22 Outpatient TIGRE, [facility] [id number] [facility] 09:16:35 10:19:47 LEONORA Colleg e of Medicin e 2021-08-21 2021-08-21 Outpatient KATHY COELLO [facility] [id number] [facility] 15:32:14 15:45:49 Colleg e of Medicin e 2021-08-10 2021-08-10 Outpatient KALINA, [facility] [id number] [facility] 10:45:05 11:03:22 DAVID Colleg e of Medicin e 2021-07-18 2021-07-18 Outpatient [facility] [id number] [facility] 10:12:40 23:59:00 Colleg e of Medicin e 2021-06-27 2021-06-27 Office MALINDA [facility] 1.2.840.114 [id number] [facility] 11:25:43 14:10:45 Visit NEREIDA AMBULATOR 350.1.13.21 College Y 0.2.7.2.686 of [id number] Medi mari 800 e 2021-06-27 2021-06-27 Office LD [facility] 1.2.840.114 [id number] [facility] 11:47:25 13:43:58 Visit ANTON AMBULATOR 350.1.13.21 College Y 0.2.7.2.686 of [id number] [facility] mari 805 e 2021-06-27 2021-06-27 Outpatient KEL [facility] [id number] [facility] 10:52:47 11:01:51 DIPABEN Colleg e of Medicin e 2021-06-26 2021-06-26 Outpatient MARY CORTÉS [facility] [id number] [facility] 12:48:58 13:12:49 Colleg e of Medicin e 2021-06-14 2021-06-14 Outpatient TEEGADEBRAU [facility] [id number] [facility] 10:32:30 10:36:22 , BINDU murphye of Medicin e 2021-05-03 2021-05-03 Office BRANDT ALVARADO [facility] 1.2.840.114 [id number] [facility] 11:20:43 13:31:56 Visit AMBULATOR 350.1.13.21 College Y 0.2.7.2.686 of [id number] Medi mari 370 e 2021-05-03 2021-05-03 Outpatient [facility] [id number] [facility] 12:39:45 13:27:12 Colleg e of Medicin e 2021-03-17 2021-03-17 Outpatient MARY CORTÉS [facility] [id number] [facility] 13:52:42 14:02:09 Colleg e of Medicin e 2021-03-15 2021-03-15 Outpatient TIGRE [facility] [id number] [facility] 13:01:17 14:14:59 LEONORA Colleg e [employer] 2021-03-03 2021-03-03 Outpatient GORGE [facility] [id number] [facility] 14:39:05 15:10:23 [employer] 2021-03-03 2021-03-03 Office MICHELLE PETTY [id number] [facility] 13:47:38 14:34:20 Visit NEREIDA AMBULATOR [id number] [employer] Y 0.2.7.2.686 of [id number] Medi mari 800 e 2021-03-03 2021-03-03 Outpatient [facility] [id number] [facility] 00:00:00 00:00:00 [employer] 2021-02-14 2021-02-14 Outpatient SHERI MALDONADO [facility] [id number] [facility] 12:52:23 13:06:39 [employer] 2021-02-01 2021-02-01 Outpatient MARY CORTÉS [facility] [id number] [facility] 11:08:12 11:16:51 [employer] 2021-01-23 2021-01-23 Outpatient SHERI MALDONADO [facility] [id number] [facility] 14:10:03 14:39:01 [employer] 2021-01-13 2021-01-13 Outpatient MARY CORTÉS [facility] [id number] [facility] 10:40:13 10:46:45 [employer] 2021-01-05 2021-01-05 Outpatient SHERI MALDONADO [facility] [id number] [facility] 14:02:25 14:28:53 [employer] 2021-01-03 2021-01-03 Emergency ER [facility] [id number] [facility] 13:47:00 13:47:00 2020-12-02 2020-12-02 Office Brandt Alvarado [facility] [id number] [facility] 11:28:58 12:00:21 Visit Chuan AMBULATOR 350.1.13.21 College Y 0.2.7.2.686 of [id number] Medi mari 370 e 2020-11-11 2020-11-11 Office Brandt Alvarado [facility] [id number] 14:00:00 14:30:00 Visit Chuan AMBULATOR 350.1.13.21 Y [id number] [id number] 2020-11-11 2020-11-11 Office Brandt Alvarado [facility] 1.2.840.114 [id number] [facility] 14:00:00 14:30:00 Visit Chuan AMBULATOR 350.1.13.21 College Y 0.2.7.2.686 of [id number] [facility] mari 370 e 2020-11-11 2020-11-11 Outpatient [facility] [id number] [facility] 12:34:41 12:34:41 Colleg e of Medicin e 2020-10-28 2020-10-28 Outpatient BRANDT ALVARADO [facility] [id number] [facility] 00:00:00 00:00:00 2020-10-12 2020-10-12 JOELLE Cabral Multispecia [id number] [place] 10:00:00 10:00:00 t; HECTOR STORM, [facility] Karey YOUNG. Internation qamar [facility] 2020-09-08 2020-09-08 Patient FELY Campos 1.2.840.114 [id number] 00:00:00 00:00:00 Outreach Kevin PRIMARY 350.1.13.10 [place] [facility] 4.2.7.2.686 PAVILLION [id number] 2020-09-08 2020-09-08 Patient FELY Campos 1.2.840.114 [id number] Univers 00:00:00 00:00:00 Outreach Kevin PRIMARY 350.1.13.10 i ty of [place] [id number] Me dical 388 Branch 2020-08-16 2020-08-16 AppointJOELLE Cintron Multispecia [id number] [place] 15:30:00 15:30:00 t; HECTOR STORM lty - Physi zofia YOUNG M.D. Internation qamar [facility] 2020-07-22 2020-07-22 Outpatient EL SLE SLE [id number] SLEH 00:00:00 00:00:00 2020-07-22 2020-07-22 Outpatient EL SLE SLE [id number] SLE 00:00:00 00:00:00 2020-06-20 2020-06-20 AppointJOELLE Cintron [facility] [id number] [place] 14:00:00 14:00:00 t; HECTOR STORM Physi ci SHAOJIE, M.D. ans M.D. 2020-06-14 2020-06-14 Office [facility]apu [facility] 1.2.840.114 [id number] 14:00:46 14:30:46 Visit , Bindu Spence 350.1.13.21 Sra[place]i 0.2.7.2.686 [id number] 530 2020-06-14 2020-06-14 [facility] 1.2.840.114 [id number] [facility] 14:00:46 14:30:46 Visit , Bindu Spence 350.1.13.21 [place] Sravanti 0.2.7.2.686 of [id number] [facility] 530 e 2020-06-09 2020-06-09 AppointJOELLE Cintron Multispecia [id number] [place] 12:00:00 12:00:00 t; HECTOR STORM lty - Physi zofia YOUNG M.D. Internation qamar [facility] 2020-05-12 2020-05-12 Office Parish Fam 1.2.840.114 [id number] 11:31:06 16:54:40 Visit AMBULATOR 350.1.13.21 Y 0.2.7.2.686 [id number] 2020-05-12 2020-05-12 Office Parish Fam 1.2.840.114 [id number] [facility] 11:31:06 16:54:40 Visit AMBULATOR 350.1.13.21 College Y 0.2.7.2.686 of [id number] Medi mari 305 e 2020-05-12 2020-05-12 Office Brandt Alvarado 1.2.840.114 [id number] 13:27:27 14:12:27 Visit Chuan AMBULATOR 350.1.13.21 Y 0.2.7.2.686 [id number] 370 2020-05-12 2020-05-12 Office Brandt Alvarado 1.2.840.114 [id number] [facility] 13:27:27 14:12:27 Visit Chuan AMBULATOR 350.1.13.21 College Y 0.2.7.2.686 of [id number] Medi mari 370 e 2020-04-22 2020-04-22 Emergency E LAURIE, MHBL MHBL 7512 MHBL 19:33:00 21:32:00 [place] 2020-03-31 2020-03-31 Outpatient R SPENSER [facility] [id number] Univers 13:00:00 13:00:00 JORDI [facility] 2020-03-28 2020-03-28 Appointmen JOELLE HAM [facility] [id number] [place] 14:30:00 14:30:00 t; ALANA HAM M.D. P brigido WARNER M.D. [facility] [place] 2020-03-17 2020-03-17 Appointmen JOELLE STORM Multispecia [id number] [place] 12:00:00 12:00:00 t; HECTOR STORM lt - [facility] zofia YOUNG M.D. Internation qamar [facility] 2020-03-10 2020-03-10 Outpatient R SUELLEN MENDENHALL [facility] [id number] Univers 13:30:00 13:30:00 [facility] 2020-03-10 2020-03-10 [facility] 1.2.761.560 [id number] 13:06:29 13:21:29 Visit Elva MULTISPEC 350.1.13.10 IALTY 4.2.7.2.686 [place] [id number] [facility] 2020-03-10 2020-03-10 Office Elva Son [facility] 1.2.840.11 [id number] [facility] 13:06:29 13:21:29 Visit Suellen Mendenhall MULTISPEC 350.1.13.10 ity of [place] CENTER [id number] [facility] AND REFUGIO 027 Branch [facility] 2020-03-10 2020-03-10 Orders Doctor ZIYAD 1.2.840.114 [id number] Univers 00:00:00 00:00:00 Only Unassigned, TI 350.1.13.10 ity of [place] [facility] 4.2.7.2.686 Tim [id number] [facility] 009 Branch 2020-03-02 2020-03-02 Outpatient [facility] [id number] SLE 00:00:00 00:00:00 2020-02-09 2020-02-09 AppointJOELLE Niño Orthopedics [id number] [place] 11:00:00 11:00:00 t; lilly CARLTON [facility] Radha [facility] 2020-01-29 2020-01-29 Outpatient ANDI GILMAN, [facility] [id number] [facility] 00:00:00 00:00:00 DAVID 2020-01-27 2020-01-27 AppointJOELLE Cintron Mult[facility]pec[facility] [id number] [place] 15:30:00 15:30:00 t; HECTOR STORM, [facility] Radha YOUNG Internation qamar [facility] 2020-01-01 2020-01-01 Appointmen VANESA [facility] Orthopedics 67 [id number] [place] 09:50:00 09:50:00 t; GARRETT GROVES [facility] VANESARichard NP [facility] 2019-12-23 2019-12-24 Outpatient Derick VENCES, FB MED [id number] FB 17:36:00 17:46:00 GOLNAR 2019-12-21 2019-12-22 Emergency Schaffer, [facility] 1.2.840.114 [id number] Univers 22:02:00 02:26:00 Dede White 350.1.13.10 i ty liberty [place] 4.2.7.2.686 [facility] [id number] [facility] 08 Branch 2019-12-21 2019-12-21 Emergency X SARBJIT, [facility] ERT [id number] Univers 22:02:00 22:02:00 DEDE valdez of [facility] 2019-12-15 2019-12-15 Layla BILL, [facility] Orthopedics [id number] [place] 11:10:00 11:10:00 t; lilly CARLTON [facility] Radha Kilgore [facility] 2019-11-27 2019-11-27 [facility] [id number] [facility] 06:50:00 11:40:00 BRANDT 2019-11-27 2019-11-27 Layla BILL, [facility] UTP [id number] [place] 08:00:00 08:00:00 t; Leonard CARLTON M.D. ans MICHAEL, M.D. 2019-11-10 2019-11-10 Layla BILL, [facility] [id number] [place] 10:45:00 10:45:00 t; Leonard CARLTON M.D. ans MICHAEL, M.D. 2019-10-27 2019-10-27 Layla BILL, [facility] UTP [id number] [place] 11:30:00 11:30:00 t; Leonard CARLTON M.D. ans MICHAEL, M.D. 2019-10-23 2019-10-23 Layla DAMON [facility] [id number] [place] 12:45:00 12:45:00 t; ELOISE DAMONi ELOISE [facility] [place] 2019-10-16 2019-10-16 Layla BILL, [facility] UTP [id number] [place] 10:30:00 10:30:00 t; Leonard CARLTON M.D. ans MICHAEL, M.D. 2019-09-30 2019-09-30 JOELLE Cabral Multispecia [id number] [place] 15:30:00 15:30:00 t; HECTOR STORM lty - Leonard YOUNG M.D. Internation qamar [facility] 2019-09-11 2019-09-11 Telephone [facility] 1.2.840.114 [id number] Univers 00:00:00 00:00:00 Tracey White 350.1.13.10 i ty of [place] [facility] [id number] Mo dical nal 044 [facility] 2019-08-24 2019-08-24 AppointJOELLE Logan [facility] [id number] [place] 14:30:00 14:30:00 t; HOLGER PERAZA M.D. at [facility] Richard WREN M.D. [facility] 2019-08-20 2019-08-20 Emergency X [facility] ERT [id number] Univers 11:54:02 15:29:00 MEHREEN ity of [facility] 2019-08-20 2019-08-[address] [facility] 1.2.920.104 [id number] Univers 11:54:02 15:29:00 Mehreen White 350.1.13.10 ity of [place]2.[place] [id number] [facility] 084 [place] 2019-08-20 2019-08-20 Orders Doctor ESPINAL 1.2.840.114 [id number] Univers 00:00:00 00:00:00 Only Unassigned, TI 350.1.13.10 ity of [place] [facility] 4.2.7.2.686 Tim as [id number] [facility] 009 Branch 2019-08-13 2019-08-13 JOELLE López Orthopedics 63 [id number] [place] 09:45:00 09:45:00 t; lilly CARLTON [facility] Radha Kilgore [facility] 2019-08-07 2019-08-07 Outpatient [facility] [id number] [facility] 10:04:00 10:04:00 2019-08-07 2019-08-07 JOELLE Coffman [id number] [place] 10:00:00 10:00:00 t; ELOISE [facility]ON [facility] NAVAS [facility] [place] 2019-08-04 2019-08-04 JOELLE López [id number] [place] 13:30:00 13:30:00 t; Leonard CARLTON M.D. ans MICHAEL, M.D. 2019-07-13 2019-07-13 Appointmelina HAM [facility] Multispecia [id number] [place] 13:00:00 13:00:00 t; ALANA HAM M.D. lty - P brigido WARNER M.D. [facility] 2019-07-03 2019-07-03 Emergency X DEBBY, [facility] ERT [id number] [facility] 13:52:37 16:46:00 [facility] 2019-06-23 2019-06-23 Appointmelina BILL, [facility] [id number] [place] 11:15:00 11:15:00 t; Leonard CARLTON M.D. ans MICHAEL, M.D. 2019-05-19 2019-05-19 Layla VILLANUEVA [facility] Orthopedics 58 [id number] [place] 08:00:00 08:00:00 t; lilly ALEX [facility] Cam VILLANUEVA, [facility] qamar ALEX, [facility] [address] 2019-05-08 2019-05-08 Appointmelina BILL [facility] Orthopedics 58 [id number] [place] 11:00:00 11:00:00 t; lilly CARLTON [facility] Radha Kilgore [facility] 2019-05-04 2019-05-04 Layla ARZOLA [facility] [id number] [place] 11:00:00 11:00:00 t; Thony VALADEZ i, M.D. ans ROBERT, M.D. 2019-04-20 2019-04-20 Appointmelina CHAU, [facility] [id number] [place] 13:00:00 13:00:00 t; OTTONIEL CHAU, Ph ysici Radha ALCAZAR M.D. 2019-04-16 2019-04-16 [facility]ina [facility] Mult[facility] 5 [id number] [place] 13:00:00 13:00:00 t; NITHYA CERVANTES [facility] NITHYA CERVANTES [address] 2019-04-14 2019-04-14 [facility] BILL [facility] Orthopedics 57 [id number] [place] 14:15:00 14:15:00 t; lilly CARLTON M.D. Hermann ans MICHAEL [facility] 2019-04-13 2019-04-13 Layla STORM [facility] [id number] 2 [place] 12:00:00 12:00:00 t; HECTOR STORM Physi Radha Hernandez M.D. 2019-04-09 2019-04-09 Layla PENA [facility] Multispecia 5 [id number] [place] 07:00:00 07:00:00 t; Radha CERVANTES lty - Phy maura PENA [place] Radha CERVANTES [address] 2019-04-09 2019-04-09 Outpatient MHSE MHSE [id number] MH 06:10:00 06:10:00 [facility] 2019-03-26 2019-03-26 Layla SOUZA [facility] Multispecia [id number] [place] 11:30:00 11:30:00 t; alex HACKETT i, M.D. [place] ROXANN foote M.D. 2019-03-17 2019-03-17 [facility] [id number] [place] 11:00:00 11:00:00 t; Leonard CARLTON M.D. ans MICHAEL, M.D. 2019-03-05 2019-03-05 Layla MEDELLIN [facility] Multispecia 5 [id number] [place] 10:30:00 10:30:00 t; alex BULLOCK - Physi ci VIGNESH SENIOR LABEL SPECIALIST [place], [address] SENIOR LABEL SPECIALIST 2019-03-03 2019-03-03 Outpatient [facility] [id number] [facility] 11:36:00 11:36:00 2019-03-03 2019-03-03 Lay[facility] [id number] [place] 11:30:00 11:30:00 t; TADEO ALCALA P hysici HARINDER, M.D. ans M.D. 2019-02-10 2019-02-10 [facility] 56 [id number] [place] 13:45:00 13:45:00 t; BRANDT - Sugar Physi ci Radha BILL [address] 2 ans Radha CARLTON 2019-02-05 2019-02-05 Appointmelina [facility] Mult[facility]pecia [id number] [place] 14:00:00 14:00:00 t; HECTOR STORM lty - Physi ci Radha YOUNG Internation qamar Garcia [facility] 2019-01-29 2019-01-29 Appointmelina [facility] Multispecia [id number] [place] 15:30:00 15:30:00 t; alex HACKETT - Physic i HARLEY Garcia [place] ROXANN foote M.D. 2019-01-29 2019-01-29 Appointmelina [facility] [id number] [place] 15:00:00 15:00:00 t; Thony HACKETT i, M.D., FAROKH, M.D. 2019-01-23 2019-01-23 Appointmelina [facility] Mult[facility]pecia 5 [id number] [place] 14:00:00 14:00:00 t; NITHYA CERVANTES lty - [facility] NITHYA CERVANTES [address] 2019-01-14 2019-01-14 AppointCOREY Adan [facility] Multispecia [id number] [place] 13:00:00 13:00:00 t; JOCELINE HOBSON lty - Physi ci JOCELINE NICOLE Internation a ns [facility] 2019-01-14 2019-01-14 AppointJOELLE Rogers Non-Invasiv [id number] [place] 10:00:00 10:00:00 t; LARRY CHAPA e - [place] P hysici ECHOII [facility] 2019-01-14 2019-01-14 DONOVAN ThrasherT [facility] UTP [id number] [place] 09:00:00 09:00:00 t; Lillie CHAPA sici PFT [facility] 2019-01-14 2019-01-14 AppointJOELLE Moses Pulmonary & [id number] [place] 08:30:00 08:30:00 t; CASTILLO BUENROSTRO M.D. Sleep Physici qamar CHONG M.D. 2019-01-13 2019-01-13 Appointmen HARLEY JOELLE Multispecia [id number] [place] 08:00:00 08:00:00 t; alex HACKETT i, M.D., ans ROXANN RenzoChristophe Garcia 2018-12-29 2018-12-29 Appointmen COREY HOBSON UTP Multispecia [id number] [place] 13:00:00 13:00:00 t; JOCELINE HOBSON lty - Physi zofia NICOLE APRN Internation a ns [facility] Results Test Description Test Time Test Comments Results Result Comments Source Urinalysis w/Microscopic + Reflex to Culture 2022-06-21 12:3 6:01 Test Item Value Reference Range Interpretation Comme nts Color, UA (test code = Light Yellow 5778-6) Clarity, UA (test code = Clear 5767-9) Specific [place], UA (test 1.014 1.001-1.035 code = 5811-5) pH, UA (test code = 5803-2) 6.5 5.0-8.0 Protein, UA (test code = 10 mg/dL Negative A 86664-7) Glucose, UA (test code = Negative Negative 365) Ketones, UA (test code = 60 mg/dL Negative A 2514-8) Bilirubin, UA (test code = Negative Negative 10827-9) Blood, UA (test code = Negative Negative 77920-8) Nitrite, UA (test code = Negative Negative 5802-4) Leukocytes, UA (test code = Negative Negative 5799-2) Urobilinogen, UA (test code 0.2 0.2-1.0 = 86656-3) RBC, UA (test code = 0 See_Comment [Autom ated message] 14169-1) The system [employer] generated this result transmitted ref erence range: /HPF. Th e reference range was not used to interpr et this result as normal/abnormal . WBC, UA (test code = 3 See_Comment [Autom ated message] 5821-4) The system [employer] generated this result transmitted ref erence range: /HPF. Th e reference range was not used to interpr et this result as normal/abnormal . Bacteria, UA (test code = Rare 96053-3) Mucus (test code = 8247-9) Rare Squam Epithel, UA (test 5 See_Comment [Au tomated message] code = 31757-4) The system w [facility] generated this result transmitted ref erence range: /HPF. Th e reference range was not used to interpr et this result as normal/abnormal . Specimen Source (test code = 2795) PEYTON (test code = PEYTON) [place] ID - [auto] Lab Interpretation (test Abnormal code = 40009-0) [facility] REFLEX URINE [id number] 12:36:01 Test Item Value Reference Range Interpretation Comments COLOR (BEAKER) (test code = 470) Light Yellow CLARITY (BEAKER) (test code = Clear 469) SPECIFIC GRAVITY UA (BEAKER) 1.014 1.001-1.035 (test code = 468) PH UA (BEAKER) (test code = 467) 6.5 5.0-8.0 PROTEIN UA (BEAKER) (test code = 10 mg/dL Negative A 464) GLUCOSE UA (BEAKER) (test code = Negative Negative 365) KETONES UA (BEAKER) (test code = 60 mg/dL Negative A 371) BILIRUBIN UA (BEAKER) (test code Negative Negative = 462) BLOOD UA (BEAKER) (test code = Negative Negative 461) NITRITE UA (BEAKER) (test code = Negative Negative 465) LEUKOCYTE ESTERASE UA (BEAKER) Negative Negative (test code = 466) UROBILINOGEN UA (BEAKER) (test 0.2 0.2-1.0 code = 463) RBC UA (BEAKER) (test code = 0 /HPF 519) WBC UA (BEAKER) (test code = 3 /HPF 520) BACTERIA (BEAKER) (test code = Rare 517) MUCUS (BEAKER) (test code = Rare 1574) SQUAMOUS EPITHELIAL (BEAKER) 5 /HPF (test code = 516) SOURCE(BEAKER) (test code = 2795) [place] ID - [auto]POC-Glucose [id number] 05:47:52 Test Item Value Reference Range Interpretation Comments POC-Glucose Meter (test 133 mg/dL 70-110 H : TE STED AT [facility] code = 1538) 6720 [facility], 770 30: Oyster Fisherman/Techni sandy ID = [id number] for TURNER DAVIS A Lab Interpretation (test Abnormal code = 63085-2) [facility]SE [id number] 05:47:52 Test Item Value Reference Range Interpretation Comments POC-GLUCOSE METER 133 mg/dL 70-110 H : TESTED A T [facility] 6720 (BEAKER) (test code = [facility], 153) 85458: Oyster Fisherman/Techni sandy ID = [id number] for SYDNEE CUEVAS, RAS POCT-GLUCOSE [id number] 00:31:43 Test Item Value Reference Range Interpretation Comments POC-GLUCOSE METER 151 mg/dL 70-110 H : TESTED A T [facility] 6720 (BEAKER) (test code = [facility], 153) 48304: Oyster Fisherman/Techni sandy ID = [id number] for DA MASON, RAS POCT-GLUCOSE [id number] 18:02:33 Test Item Value Reference Range Interpretation Comments POC-GLUCOSE METER 197 mg/dL 70-110 H : TESTED A T [facility] 6720 (BEAKER) (test code = [facility], 153) 71225: [place]yster Fisherman/Techni sandy ID = [id number] for Jorge Luis Chris POCT-GLUCOSE [id number] 06:47:36 Test Item Value Reference Range Interpretation Comments POC-GLUCOSE METER 118 mg/dL 70-110 H : TESTED A T [facility] 6720 (BEAKER) (test code = [facility], 153) 62875: [place]yster Fisherman/Techni sandy ID = [id number] for ED WARDS, VICKI POCT , [id number] 06:25:00 Test Item Value Reference Range Interpretation Comments Test Urine, POC (test code Negative = 6928067) Control line present?, POC (test Yes code = 9941208) Background clear?, POC (test code = Yes 4262828) UPT Cassette Lot #, POC (test code = 2858501 2234416) UPT Cassette Expiration Date, POC [id number] (test code = 4426856) [facility]ST, 1 VIEW, NON [id number] 20:08:00Reason for exam:->CHEMICAL EXPOSUREperfect US materhorn whiteShould this be performed at the bedside?->No [facility] CENTERName: TODD BERMUDEZ : 1980 Sex: FFINAL REPORT Exam: RAD, CHEST, 1 VIEW, NON DEPTDate: 06/19/2022 8:08 PM Indication: Chemical exposure Comparison: CXR 10/03/21 FINDINGS: Lines/Tubes:None Lungs:The lungs are well inflated. No focal consolidation or pulmonary edema. Pleura:No pleural effusion. No pneumothorax. Heart/Mediastinum:The cardiomediastinal silhouette is normal in size and contour. Bones/Soft Tissues: No acute osseous injury. Abdomen: No free air below the diaphragm. IMPRESSION:No focal pneumonia or pulmonary edema. Signed: Michelle Alvarado MDReport Verified Date/Time: 06/19/2022 20:08:46 Electronically signedby: MICHELLE ALVARADO MD on 06/19/2022 08:08 PMBUN AND CREATININE [id number] 14:39:37 Test Item Value Reference Range Interpretation Comments BLOOD UREA 23 mg/dL 7-21 H NITROGEN (BEAKER) (test code = 354) CREATININE 0.76 mg/dL 0.57-1.25 (BEAKER) (test code = 358) BUN/CREAT RATIO 30 For a normal individual on (BEAKER) (test a normal diet , the code = reference inter sneha for the 8298963680) mass ratio rang es between 12:1 and 20:1 ( BUN in mg/dL/creatinin e in mg/dL) EGFR (BEAKER) 100 Interpretatio n of eGFR (test code = mL/min/1.73 values Stage De scription 1092) sq m Result G1 Theresa l or high >=90 G2 Mildly decreased 60-89 G3a Mildl y to moderately 45-5 9 G3b Moderately to s everely 30-44 G4 Severl y decreased 15-29 G5 Kidney failure <15Reported eGF R is based on the CKD-EPI 2020 equation that d oes not use a race coefficientEsti mated GFR is not as accur ate as Creatinine Magui anne in predicting glom erular filtration rate . Estimated GFR is not appl icable for dialysis patien ts [place] Fisherman ID - [id number] 14:39:35 Test Item Value Reference Range Interpretation Comments SODIUM (BEAKER) (test code = 381) 136 meq/L 136-145 POTASSIUM (BEAKER) (test code = 3.8 meq/L 3.5-5.1 379) CHLORIDE (BEAKER) (test code = 382) 108 meq/L 98-107 H CO2 (BEAKER) (test code = 355) 21 meq/L 22-29 L [place] ID - [id number] 13:43:25 Test Item Value Reference Range Interpretation Comments HEMOGLOBIN (BEAKER) (test code = 13.1 GM/DL 11.2-15.7 410) [place]man ID - [id number] 09:17:18 Test Item Value Reference Range Interpretation Comments Scan Result (test code = See scanned report [id number]) PEYTON (test code = PEYTON) See scanned report [facility] [id number] 09:17:18 Test Item Value Reference Range Interpretation Comments SCAN RESULT (test code = See scanned report [id number]) See scanned reportRAD, SHOULDER, COMPLETE (MIN 2 VIEWS), [id number] 15:24:00Reason for exam:->right shoulder pain [facility] : 1980 Sex: FFINAL REPORT Exam: RAD, SHOULDER, COMPLETE (MIN 2 VIEWS), RIGHTDate: 03/17/2022 3:23 PM Indication:right shoulder painComparison: None DISCUSSION/IMPRESSION: AP internal/external views of the right shoulder was obtained. Osseous structures appear well mineralized.Osseous structures appear intact.Joint spaces are grossly preserved.Soft tissues are within normal limits.No radiopaque foreign bodies. Signed: Alexandru Azarort Verified Date/Time: 03/17/2022 15:24:31 Reading Location: [facility] C013X Ortho Consult Reading Room , BRAIN, [id number] 13:30:00Unlisted Reason for Exam - Click Yes and Enter Reason Below->No [facility] : 1980 Sex: FFINAL REPORT MR, BRAIN, WITH \\T\\ WITHOUT CONTRAST INDICATION: Dizziness, non-specificHeadache, chronic, new features or increased frequency Technique: Multiplanar, multisequence MRIimages of the brain were obtained before and after demonstration of intravenous contrast. COMPARISON: None FINDINGS:Brain parenchyma is normal in morphology. Midline structures are normally developed. N o restricted diffusion to suggest recent ischemic insult. No abnormal susceptibility. Scattered T2/FLAIR hyperintense foci within the periventricular and subcortical white matter are nonspecific, however, statistically represent chronic microvascular ischemic changes. No hydrocephalus. Orbits are within normal limits. No obstructive paranasal sinus disease. Additional findings: None. IMPRESSION: No acute infarct, intracranial hemorrhage, or mass. Signed: Bang Rodriguez MDReport Verified Date/Time: 03/17/2022 13:30:05 MR, SPINE, CERVICAL, [id number] 07:16:00Unlisted Reason for Exam - Click Yes and Enter Reason Below->NoCHI OLIVE [facility] : 1980 Sex: FFINAL REPORT MRI cervical spine with and without contrast. CLINICAL HISTORY: Myelopathy, acute or progressiveCervical radiculopathy, no red flags TECHNIQUE: Multiplanar, multisequence of the cervical spine was performed before administration of intravenous contrast; postcontrast sagittal and axial T1 sequences were also performed. COMPARISON: None available. FINDINGS: No spinal cord signal abnormality identified. Mild spondylosis and facet arthropathy are present within the spine.No abnormal enhancement identified. C2-C3: No significant spinal canal or neural foraminal stenosis C3-C4: No significant spinal canal or neural foraminal stenosis C4-C5: No significant spinal canal or neural foraminal stenosis C5-C6: No significant spinal canal or neural foraminal stenosis C6-C7: No significant spinal canal or neural foraminal stenosis C7-T1: No significant spinal canal or neural foraminal stenosis IMPRESSION: No acute fracture or malalignment identified. No significant spinal canal or neuroforaminal stenosis. Signed: Bang Rodriguez MDReport Verified Date/Time: 03/17/2022 07:16:46 VITAMIN [id number] 13:00:00 Test Item Value Reference Range Interpretation Comments VITAMIN B-12 343 pg/mL 200-1100 Please Note: A lthough the (test code = reference range for [id number] 2132-9) is 200-1100 pg/ mL, it has been reported that b etween5 and 10% of patients wit h values between 200 and 400pg/mL may experience neur opsychiatric and hematologic abnormalities due to occult B 12 deficiency; less than 1%of patients with values above 40 0 pg/mL will have symptoms. Performed at: [facility] [address] [address] MIGUELITO DIAZ MD [facility] [id number] 13:00:00 Test Item Value Reference Range Interpretation Comments PYRUVIC ACID (test 0.75 mg/dL 0.30-1.50 Performed at: AMD code = 2905-8) [facility] [address] RACHEL REINOSO MD,PHD [facility] REFLEX URINE [id number] 18:29:33 Test Item Value Reference Range Interpretation Comments COLOR (BEAKER) (test code = 470) Jhoan CLARITY (BEAKER) (test code = 469) Cloudy SPECIFIC GRAVITY UA (BEAKER) (test 1.042 1.001-1.035 H code = 468) PH UA (BEAKER) (test code = 467) 6.0 5.0-8.0 PROTEIN UA (BEAKER) (test code = 100 mg/dL Negative A 464) GLUCOSE UA (BEAKER) (test code = Negative Negative 365) KETONES UA (BEAKER) (test code = Negative Negative 371) BILIRUBIN UA (BEAKER) (test code = Positive Negative A 462) BLOOD UA (BEAKER) (test code = 461) Trace Negative A NITRITE UA (BEAKER) (test code = Negative Negative 465) LEUKOCYTE ESTERASE UA (BEAKER) Large Negative A (test code = 466) UROBILINOGEN UA (BEAKER) (test code 4.0 mg/dL 0.2-1.0 H = 463) RBC UA (BEAKER) (test code = 519) 0 /HPF WBC UA (BEAKER) (test code = 520) 30 /HPF BACTERIA (BEAKER) (test code = 517) None Seen MUCUS (BEAKER) (test code = 1574) Many SQUAMOUS EPITHELIAL (BEAKER) (test 87 /HPF code = 516) CRYSTALS, URINE (BEAKER) (test code None Seen = 1521) SOURCE(BEAKER) (test code = 2795) Oyster Fisherman ID - [auto]Oyster Fisherman ID - techPROTEIN ELECTROPHORESIS, SERUM WITH REFLEX TO [id number] 14:31:04 Test Item Value Reference Range Interpretation Comments ALBUMIN FRACTION 3.5 gm/dL 3.5-5.5 (BEAKER) (test code = 405) ALPHA 1 FRACTION 0.3 gm/dL 0.2-0.4 (BEAKER) (test code = 389) ALPHA 2 FRACTION 0.7 gm/dL 0.4-1.0 (BEAKER) (test code = 390) BETA FRACTION 0.8 gm/dL 0.5-1.1 (BEAKER) (test code = 392) GAMMA GLOBULIN 0.8 gm/dL 0.7-1.6 FRACTION (BEAKER) (test code = 391) INTERPRETATION-119 Normal electrophoretic (BEAKER) (test code pattern. = 2615) [id number] Maulik Cazares M.D. 9 (BEAKER) (test (electonic signature) code = 2616) PROTEIN TOTAL 6.0 gm/dL 6.0-8.3 SERUM, SPEP (BEAKER) (test code = 2660) Clinical Spoon Maker - SFOperator ID - BSOperator ID - ADMIMMUNOFIXATION + PROTEIN ELECTROPHORESIS - [id number] 08:00:00 Test Item Value Reference Range Interpretation Comments PROTEIN TOTAL (test code 6.9 g/dL 6.1-8.1 = 2885-2) INTERPRETATION, GINA (test N ormal pattern. No code = 62139-0) monoclonal p roteins detected. ALBUMIN ELP (test code = 4 g/dL 3.8-4.8 2862-1) ALPHA 1 (test code = 0.4 g/dL 0.2-0.3 H 2865-4) ALPHA 2 (test code = 0.9 g/dL 0.5-0.9 2868-8) BETA-1 (test code = 0.5 g/dL 0.4-0.6 37352-4) BETA-2 (test code = 0.4 g/dL 0.2-0.5 54066-3) GAMMA GLOBULIN (test code 0.9 g/dL 0.8-1.7 = 2874-6) INTERPRETATION SPE (test Al pha-1 globulin code = 03151-1) increase not ed. Performed at: [facility] [address] [facility] [place] [address] ALLYSON DIAZ MD Lab Interpretation (test Abnormal code = 25382-5) [facility] METABOLIC [id number] 05:59:37 Test Item Value Reference Range Interpretation Comments SODIUM (BEAKER) 136 meq/L 136-145 (test code = 381) POTASSIUM 3.5 meq/L 3.5-5.1 Specimen slight ly (BEAKER) (test hemolyzed code = 379) CHLORIDE (BEAKER) 109 meq/L 98-107 H (test code = 382) CO2 (BEAKER) 21 meq/L 22-29 L (test code = 355) BLOOD UREA 19 mg/dL 7-21 NITROGEN (BEAKER) (test code = 354) CREATININE 0.74 mg/dL 0.57-1.25 Specimen slight ly (BEAKER) (test hemolyzed code = 358) GLUCOSE RANDOM 74 mg/dL 70-105 (BEAKER) (test code = 652) CALCIUM (BEAKER) 8.1 mg/dL 8.4-10.2 L (test code = 697) EGFR (BEAKER) 104 Interpretatio n of eGFR (test code = mL/min/1.73 values Stage De scription 1092) sq m Result G1 Theresa l or high >=90 G2 Mildly decreased 60-89 G3a Mildl y to moderately 45-5 9 G3b Moderately to s everely 30-44 G4 Severl y decreased 15-29 G5 Kidney failure <15Reported eGF R is based on the CKD-EPI 2020 equation that d oes not use a race coefficientEsti mated GFR is not as accur ate as Creatinine Magui rodríguez in predicting glom erular filtration rate . Estimated GFR is not appl icable for dialysis patien ts Oyster Fisherman ID - BSHEPATIC FUNCTION [id number] 05:59:37 Test Item Value Reference Range Interpretation Comments TOTAL PROTEIN (BEAKER) 6.2 gm/dL 6.0-8.3 Speci men slightly (test code = 770) hemolyzed ALBUMIN (BEAKER) (test 3.5 g/dL 3.5-5.0 Speci men slightly code = 1145) hemolyzed BILIRUBIN TOTAL 0.8 mg/dL 0.2-1.2 Specimen sli ghtly (BEAKER) (test code = hemoly zed 377) BILIRUBIN DIRECT 0.3 mg/dL 0.1-0.5 Specimen sl ightly (BEAKER) (test code = hemoly zed 706) ALKALINE PHOSPHATASE 50 U/L 40-150 (BEAKER) (test code = 346) AST (SGOT) (BEAKER) 18 U/L 5-34 Specimen slightly (test code = 353) hemolyzed ALT (SGPT) (BEAKER) 24 U/L 6-55 Specimen slightly (test code = 347) hemolyzed Oyster Fisherman ID - [id number] 05:59:36 Test Item Value Reference Range Interpretation Comments MAGNESIUM (BEAKER) 1.9 mg/dL 1.6-2.6 Specimen slightly (test code = 627) hemolyzed Oyster Fisherman ID - BSVITAMIN [id number] 04:25:50 Test Item Value Reference Range Interpretation Comments VITAMIN B12 (BEAKER) (test code = 515 pg/mL 213-816 774) Oyster Fisherman ID - ALANA MTSH/FREE T4 IF [id number] 04:25:50 Test Item Value Reference Range Interpretation Comments THYROID STIMULATING HORMONE 1.504 uIU/mL 0.350-4.940 (BEAKER) (test code = 772) Oyster Fisherman ID - ALANA MCBC W/PLT COUNT & AUTO [id number] 03:33:10 Test Item Value Reference Range Interpretation Comments WHITE BLOOD CELL COUNT (BEAKER) 8.5 K/ L 3.5-10.5 (test code = 775) RED BLOOD CELL COUNT (BEAKER) 4.08 M/ L 3.93-5.22 (test code = 761) HEMOGLOBIN (BEAKER) (test code = 13.0 GM/DL 11.2-15.7 410) HEMATOCRIT (BEAKER) (test code = 39.1 % 34.1-44.9 411) MEAN CORPUSCULAR VOLUME (BEAKER) 95.8 fL 79.4-94.8 H (test code = 753) MEAN CORPUSCULAR HEMOGLOBIN 31.9 pg 25.6-32.2 (BEAKER) (test code = 751) MEAN CORPUSCULAR HEMOGLOBIN CONC 33.2 GM/DL 32.2-35.5 (BEAKER) (test code = 752) RED CELL DISTRIBUTION WIDTH 13.3 % 11.7-14.4 (BEAKER) (test code = 412) PLATELET COUNT (BEAKER) (test 220 K/CU MM 150-450 code = 756) MEAN PLATELET VOLUME (BEAKER) 9.4 fL 9.4-12.3 (test code = 754) NUCLEATED RED BLOOD CELLS 0 /100 WBC 0-0 (BEAKER) (test code = 413) NEUTROPHILS RELATIVE PERCENT 55 % (BEAKER) (test code = 429) LYMPHOCYTES RELATIVE PERCENT 35 % (BEAKER) (test code = 430) MONOCYTES RELATIVE PERCENT 8 % (BEAKER) (test code = 431) EOSINOPHILS RELATIVE PERCENT 2 % (BEAKER) (test code = 432) BASOPHILS RELATIVE PERCENT 1 % (BEAKER) (test code = 437) NEUTROPHILS ABSOLUTE COUNT 4.65 K/ L 1.56-6.13 (BEAKER) (test code = 670) LYMPHOCYTES ABSOLUTE COUNT 2.96 K/ L 1.18-3.74 (BEAKER) (test code = 414) MONOCYTES ABSOLUTE COUNT (BEAKER) 0.70 K/ L 0.24-0.36 H (test code = 415) EOSINOPHILS ABSOLUTE COUNT 0.13 K/ L 0.04-0.36 (BEAKER) (test code = 416) BASOPHILS ABSOLUTE COUNT (BEAKER) 0.05 K/ L 0.01-0.08 (test code = 417) IMMATURE GRANULOCYTES-RELATIVE 0 % 0-1 PERCENT (BEAKER) (test code = 2801) SARS-CoV2/RT-PCR (Asymptomatic ONLY)2022-03-14 23:41:10 Test Item Value Reference Interpretation Comments Range SARS-COV2/RT-PCR Negative Negative The SARS-Co V-2 (test code = target nucleic 13150-8) acids are not detected in thi s specimen. Negat luzmaria results do not preclude SARS-C oV-2 infection and should not be u sed as the sole bas is for patient management decisions. Nega tive results must be combined with clinical observations, patient history , and epidemiolog ical information. A false negative result may occu r if a specimen is improperly collected, transported or handled. This S ARS CoV-2 test is a rapid, real-jesse e RT-PCR test intended for th e qualitative detection of nucleic acid fr om SARS-CoV-2 in a nasopharyngeal swab specimen colle svetlana from individual s suspected of COVID-19 by the ir healthcare provider. PEYTON (test code = This test has been PEYTON) authorized by FDA under an EUA for use by authorized laboratories. This test is only authorized for the duration of the declaration that circumstances exist justifying the authorization of emergency use of in vitro diagnostic tests for detection and/or diagnosis of COVID-19 under Section 564(b)(1) of the Federal Food, Drug and Cosmetic Act, 21 U.S.C. 360bbb-3(b)(1), unless the authorization is terminated or revoked sooner. Fact Sheet for Healthcare Providers: https://www.[employer]/Documents/Xp ert%20Xpress%20SAR S%20CoV-2/Fact%20S heets/302-3802%20S ARS-COV-2%20HEALTH CARE%20PROVIDERS%2 0FACT%20SHEET.pdf Fact Sheet for Healthcare Patients: https://www.[employer]/Documents/Xp ert%20Xpress%20SAR S%20CoV-2/Fact%20S heets/302-3801%20S ARS-COV-2%20PATIEN T%20FACT%20SHEET.p df Lab Interpretation Normal (test code = 39847-6) [facility]2022-03-14 23:41:10 Test Item Value Reference Range Interpretation Comments SARS-COV2/RT-PCR Negative Negative The SARS-Co V-2 target (test code = nucleic acids a re not 3223256) detected in thi s specimen. Negative result s do not preclude SARS-C oV-2 infection and s hould not be used as the basim e basis for patient managem ent decisions. Nega tive results must be combine d with clinical observ ations, patient history , and epidemiological information. A false negativ e result may occur if a spec imen is improperly deangelo ected, transported or handled. This SARS CoV-2 test is a rapid, real-time RT-PC R test intended for th e qualitative detection of nu cleic acid from SARS-CoV-2 in a nasopharyngeal swab specimen collected from individuals suspected of CO VID-19 by their healthcar e provider. This test has been authorized by FDA under an EUA for use by authorized laboratories. This test is only authorized for the duration of the declaration that circumstances exist justifying the authorization of emergency use of in vitro diagnostic tests for detection and/or diagnosis of COVID-19 under Section 564(b)(1) of the Federal Food, Drug and Cosmetic Act, 21 U.S.C. 360bbb-3(b)(1), unless the authorization is terminated or revoked sooner. Fact Sheet for Healthcare Providers: https://www.[employer] m/Documents/Xpert%20Xpress%20SARS%20CoV-2/Fact%20Sheets/3023802%13KYIV-JCC-7%20 HEALTHCARE%20PROVIDERS%20FACT%20SHEET.pdf Fact Sheet for Healthcare Patients: https://www.[employer]/Documents/Xpert%20Xp ress%20SARS%20CoV-2/Fact%20Sheets/3023801%86DPVN-PVF-2%20PATIENT%20FACT%20SHEET .pdfHCG, QUANTITATIVE, [id number] 19:05:54 Test Item Value Reference Range Interpretation Comments GONADOTROPIN, CHORIONIC (HCG) QUANT < mIU/mL 0-10 (JEFF) (test code = 649) Non- Females: <10 mIU/mL Females: Gestation Age Reference Range(mIU/mL) 0.2-1 Week 5-50 1-2 Weeks 50-500 2-3 Weeks 100-5,000 3-4 Weeks 500-10,000 4-5 Weeks 1,000-50,000 5-6 Weeks 10,000-100,000 6-8 Weeks 15,000- 200,000 2-3 Months 10,000-100,000 Oyster Fisherman ID - BSCOMPREHENSIVE METABOLIC PANEL 2022-03-14 18:54:30 Test Item Value Reference Range Interpretation Comments TOTAL PROTEIN 7.3 gm/dL 6.0-8.3 Specimen sligh tly (BEAKER) (test hemolyzed code = 770) ALBUMIN (BEAKER) 4.2 g/dL 3.5-5.0 Specimen sl ightly (test code = 1145) hemolyzed ALKALINE 52 U/L 40-150 PHOSPHATASE (BEAKER) (test code = 346) BILIRUBIN TOTAL 0.9 mg/dL 0.2-1.2 Specimen sli ghtly (BEAKER) (test hemolyzed code = 377) SODIUM (BEAKER) 138 meq/L 136-145 (test code = 381) POTASSIUM (BEAKER) 4.0 meq/L 3.5-5.1 Specimen slightly (test code = 379) hemolyzed CHLORIDE (BEAKER) 108 meq/L 98-107 H (test code = 382) CO2 (BEAKER) (test 20 meq/L 22-29 L code = 355) BLOOD UREA 21 mg/dL 7-21 NITROGEN (BEAKER) (test code = 354) CREATININE 0.85 mg/dL 0.57-1.25 Specimen slight ly (BEAKER) (test hemolyzed code = 358) GLUCOSE RANDOM 73 mg/dL 70-105 (BEAKER) (test code = 652) CALCIUM (BEAKER) 9.0 mg/dL 8.4-10.2 (test code = 697) AST (SGOT) 25 U/L 5-34 Specimen slight ly (BEAKER) (test hemolyzed code = 353) ALT (SGPT) 31 U/L 6-55 Specimen slight ly (BEAKER) (test hemolyzed code = 347) EGFR (BEAKER) 88 Interpretatio n of eGFR (test code = 1092) mL/min/1.[address] age Description sq m Result G1 Theresa l or high >=90 G2 Mildly decreased 60-89 G3a Mildl y to moderately 45-5 9 G3b Moderately to s everely 30-44 G4 Severl y decreased 15-29 G5 Kidney failure <15Reported eGF R is based on the CKD-EPI 2020 equation that d oes not use a race coefficientEsti mated GFR is not as accur ate as Creatinine Magui anne in predicting glom erular filtration rate . Estimated GFR is not appl icable for dialysis patien ts Oyster Fisherman ID - [id number] 18:37:27 Test Item Value Reference Range Interpretation Comments PROTIME (BEAKER) (test 13.8 seconds 11.9-14.2 code = 759) INR (BEAKER) (test 1.08 See_Comment [Automat ed code = 370) message] The [place] stem which generated this result transmitted reference range : <=5.90. The reference range was not used to interpret this result as normal/abnormal . PARTIAL THROMBOPLASTIN 28.5 seconds 22.5-36.0 TIME (BEAKER) (test code = 760) RECOMMENDED COUMADIN/WARFARIN INR THERAPY RANGESSTANDARD DOSE: 2.0 - 3.0 Includes: PROPHYLAXIS for venous thrombosis, systemic embolization; TREATMENT for venous thrombosis and/or pulmonary embolus.HIGH RISK: Target INR is 2.5-3.5 for patients with mechanical heart valves.CBC W/PLT COUNT & AUTO [id number] 18:28:24 Test Item Value Reference Range Interpretation Comments WHITE BLOOD CELL COUNT (BEAKER) 10.4 K/ L 3.5-10.5 (test code = 775) RED BLOOD CELL COUNT (BEAKER) 4.61 M/ L 3.93-5.22 (test code = 761) HEMOGLOBIN (BEAKER) (test code = 14.6 GM/DL 11.2-15.7 410) HEMATOCRIT (BEAKER) (test code = 44.6 % 34.1-44.9 411) MEAN CORPUSCULAR VOLUME (BEAKER) 96.7 fL 79.4-94.8 H (test code = 753) MEAN CORPUSCULAR HEMOGLOBIN 31.7 pg 25.6-32.2 (BEAKER) (test code = 751) MEAN CORPUSCULAR HEMOGLOBIN CONC 32.7 GM/DL 32.2-35.5 (BEAKER) (test code = 752) RED CELL DISTRIBUTION WIDTH 13.2 % 11.7-14.4 (BEAKER) (test code = 412) PLATELET COUNT (BEAKER) (test 223 K/CU MM 150-450 code = 756) MEAN PLATELET VOLUME (BEAKER) 9.3 fL 9.4-12.3 L (test code = 754) NUCLEATED RED BLOOD CELLS 0 /100 WBC 0-0 (BEAKER) (test code = 413) NEUTROPHILS RELATIVE PERCENT 65 % (BEAKER) (test code = 429) LYMPHOCYTES RELATIVE PERCENT 26 % (BEAKER) (test code = 430) MONOCYTES RELATIVE PERCENT 7 % (BEAKER) (test code = 431) EOSINOPHILS RELATIVE PERCENT 1 % (BEAKER) (test code = 432) BASOPHILS RELATIVE PERCENT 0 % (BEAKER) (test code = 437) NEUTROPHILS ABSOLUTE COUNT 6.80 K/ L 1.56-6.13 H (BEAKER) (test code = 670) LYMPHOCYTES ABSOLUTE COUNT 2.75 K/ L 1.18-3.74 (BEAKER) (test code = 414) MONOCYTES ABSOLUTE COUNT (BEAKER) 0.74 K/ L 0.24-0.36 H (test code = 415) EOSINOPHILS ABSOLUTE COUNT 0.08 K/ L 0.04-0.36 (BEAKER) (test code = 416) BASOPHILS ABSOLUTE COUNT (BEAKER) 0.04 K/ L 0.01-0.08 (test code = 417) IMMATURE GRANULOCYTES-RELATIVE 0 % 0-1 PERCENT (BEAKER) (test code = 2801) [id number] 18:08:05 Test Item Value Reference Range Interpretation Comments PHOSPHORUS (BEAKER) 3.0 mg/dL 2.3-4.7 Specimen slightly (test code = 604) hemolyzed CT, BRAIN, WITHOUT IV [id number] 18:03:00 [facility] : 1980 Sex: FFINAL REPORT CT, BRAIN, WITHOUT IV CONTRAST CLINICAL INDICATION: Headache, chronic, new features or increased frequency COMPARISON: None TECHNIQUE: Noncontrast axial CT imaging of the brain, skull and face. Coronal and sagittal reformats are provided. DOSE REDUCTION: Dose modulation, iterative reconstruction, and/or weight-based adjustment of the mA/kV was utilized to reduce the radiation dose to as low as reasonably achievable. FINDINGS: No intracranial hemorrhage, midline shiftor mass effect. Midline structures are normally developed. Mild generalized parenchymal volume loss is present. No hydrocephalus. Orbits are within normal limits. No obstructive paranasal sinus disease. No calvarial fracture. No significant soft tissue swelling. IMPRESSION: No acute intracranial findings Signed: Bang Rodriguez MDRepmissouri baptist medical center Verified Date/Time: 03/07/2022 18:03:33 [id number] 17:53:23 Test Item Value Reference Range Interpretation Comments MAGNESIUM (BEAKER) 1.9 mg/dL 1.6-2.6 Specimen slightly (test code = 627) hemolyzed COMPREHENSIVE METABOLIC [id number] 17:53:17 Test Item Value Reference Range Interpretation Comments TOTAL PROTEIN 7.0 gm/dL 6.0-8.3 Specimen sligh tly (BEAKER) (test hemolyzed code = 770) ALBUMIN (BEAKER) 4.6 g/dL 3.5-5.0 Specimen sl ightly (test code = 1145) hemolyzed ALKALINE 60 U/L 40-150 PHOSPHATASE (BEAKER) (test code = 346) BILIRUBIN TOTAL 0.5 mg/dL 0.2-1.2 Specimen sli ghtly (BEAKER) (test hemolyzed code = 377) SODIUM (BEAKER) 140 meq/L 136-145 (test code = 381) POTASSIUM (BEAKER) 3.7 meq/L 3.5-5.1 Specimen slightly (test code = 379) hemolyzed CHLORIDE (BEAKER) 109 meq/L 98-107 H (test code = 382) CO2 (BEAKER) (test 24 meq/L 22-29 code = 355) BLOOD UREA 15 mg/dL 7-21 NITROGEN (BEAKER) (test code = 354) CREATININE 0.94 mg/dL 0.57-1.25 Specimen slight ly (BEAKER) (test hemolyzed code = 358) GLUCOSE RANDOM 139 mg/dL 70-105 H (BEAKER) (test code = 652) CALCIUM (BEAKER) 9.1 mg/dL 8.4-10.2 (test code = 697) AST (SGOT) 22 U/L 5-34 Specimen slight ly (BEAKER) (test hemolyzed code = 353) ALT (SGPT) 25 U/L 6-55 Specimen slight ly (BEAKER) (test hemolyzed code = 347) EGFR (BEAKER) 78 Interpretatio n of eGFR (test code = 1092) mL/min/1.[address] age Description sq m Result G1 Theresa l or high >=90 G2 Mildly decreased 60-89 G3a Mildl y to moderately 45-5 9 G3b Moderately to s everely 30-44 G4 Severl y decreased 15-29 G5 Kidney failure <15Reported eGF R is based on the CKD-EPI 202 equation that d oes not use a race coefficientEsti mated GFR is not as accur ate as Creatinine Magui rodríguez in predicting glom erular filtration rate . Estimated GFR is not appl icable for dialysis patien ts CBC W/PLT COUNT & AUTO [id number] 17:34:47 Test Item Value Reference Range Interpretation Comments WHITE BLOOD CELL COUNT (BEAKER) 10.2 K/ L 3.5-10.5 (test code = 775) RED BLOOD CELL COUNT (BEAKER) 4.47 M/ L 3.93-5.22 (test code = 761) HEMOGLOBIN (BEAKER) (test code = 14.1 GM/DL 11.2-15.7 410) HEMATOCRIT (BEAKER) (test code = 42.5 % 34.1-44.9 411) MEAN CORPUSCULAR VOLUME (BEAKER) 95.1 fL 79.4-94.8 H (test code = 753) MEAN CORPUSCULAR HEMOGLOBIN 31.5 pg 25.6-32.2 (BEAKER) (test code = 751) MEAN CORPUSCULAR HEMOGLOBIN CONC 33.2 GM/DL 32.2-35.5 (BEAKER) (test code = 752) RED CELL DISTRIBUTION WIDTH 12.4 % 11.7-14.4 (BEAKER) (test code = 412) PLATELET COUNT (BEAKER) (test 268 K/CU MM 150-450 code = 756) MEAN PLATELET VOLUME (BEAKER) 9.3 fL 9.4-12.3 L (test code = 754) NEUTROPHILS RELATIVE PERCENT 79 % (BEAKER) (test code = 429) LYMPHOCYTES RELATIVE PERCENT 16 % (BEAKER) (test code = 430) MONOCYTES RELATIVE PERCENT 5 % (BEAKER) (test code = 431) EOSINOPHILS RELATIVE PERCENT 0 % (BEAKER) (test code = 432) BASOPHILS RELATIVE PERCENT 0 % (BEAKER) (test code = 437) NEUTROPHILS ABSOLUTE COUNT 8.01 K/ L 1.56-6.13 H (BEAKER) (test code = 670) LYMPHOCYTES ABSOLUTE COUNT 1.65 K/ L 1.18-3.74 (BEAKER) (test code = 414) MONOCYTES ABSOLUTE COUNT (BEAKER) 0.51 K/ L 0.24-0.36 H (test code = 415) EOSINOPHILS ABSOLUTE COUNT 0.00 K/ L 0.04-0.36 L (BEAKER) (test code = 416) BASOPHILS ABSOLUTE COUNT (BEAKER) 0.01 K/ L 0.01-0.08 (test code = 417) IMMATURE GRANULOCYTES-RELATIVE 0 % 0-1 PERCENT (BEAKER) (test code = 2801) FL, [id number] 11:31:00Reason for Exam:->gastroesophageal reflux disease unspec whether eso [facility] : 1980 Sex: FFINAL REPORT EXAM: Esophagram was performed with sodium carbonate and barium. INDICATION: gastroesophageal reflux disease unspec whether eso. COMPARISON: CT from 07/20/2002. FINDINGS:Swallow: The swallowing mechanism was grossly normal. The esophagus was normally distensible and themucosa was normal in appearance. Esophageal motility was within normal limits. Gastroesophageal junction: There is a very small, sliding hiatal hernia. Reflux: No gastroesophageal reflux. The visualized portions of the stomach and proximal small bowel are unremarkable. Fluoroscopy time: 1.4 minutesDose area product: 937.47 microGy*m2 IMPRESSION: There is a very small, sliding hiatal hernia upon proneimaging. Signed: Bradley Healy MDReport Verified Date/Time: 01/15/2022 11:31:49 CT, [id number] 21:58:00Unlisted Reason for Exam - Click Yes and Enter Reason Below->YesUnlisted Reason for Exam->potentially UC flareIs this for enterography?->NoWill this procedure require oral contrast?->No [facility] : 1980 Sex: FFINAL REPORT CLINICAL HISTORY: Nausea/vomitingRLQ abdominal pain, appendicitis suspected (Age > 14y)Ulcerative colitis (Ped 0-18y)potentially UC flare FINDINGS: Multiple axial images of the abdomen and pelvis were performed after the uncomplicated administration of IV contrast. Oral contrast was not given. This exam was performed according to our departmental dose- optimization program, which includes automated exposure control, adjustment of the mA and/or kV according to patient size and/or use of the iterative reconstruction technique. Comparison:07/20/2002 Lower chest: Tracebilateral pleural effusions. No pneumothorax. Visualized cardiac contours normal. Liver: No significant findings. Gallbladder and biliary tree: Previous cholecystectomy Spleen: No significant findings.Adrenal Glands: No significant findings. Kidneys and ureters: The right kidney is absent. Stomach and Duodenum: No significant findings. Pancreas: No significant findings. Bowel: No bowel obstruction or pneumatosis intestinalis. No focal inflammatory changes related to the bowel. Appendix: Normal. Bladder: No significant findings. Major vascular structures: No significant findings. Reproductive organs: IUD in place. Other: Trace free fluid in the dependent pelvis. No free intraperitoneal air. Skeleton: No acute bony abnormality. IMPRESSION: Trace free fluid in the dependent pelvis, nonspecific but possibly physiologic. Normal appendix. No CT abnormality to suggest focal bowel inflammation. Trace bilateral pleural effusions. Postsurgical changes, as described. Signed: Ashli Case MDReport Verified Date/Time: 10/03/2021 21:58:27 SARS-COV2/RT-PCR ([facility])2021-10-03 21:02:26 Test Item Value Reference Range Interpretation Comments SARS-COV2/RT-PCR Negative Negative The SARS-Co V-2 target (test code = nucleic acids a re not [id number]) detected in thi s specimen. Negative result s do not preclude SARS-C oV-2 infection and s hould not be used as the basim e basis for patient managem ent decisions. Nega tive results must be combine d with clinical observ ations, patient history , and epidemiological information. A false negativ e result may occur if a spec imen is improperly deangelo ected, transported or handled. This SARS CoV-2 test is a rapid, real-time RT-PC R test intended for th e qualitative detection of nu cleic acid from SARS-CoV-2 in a nasopharyngeal swab specimen collected from individuals suspected of CO VID-19 by their healthcar e provider. This test has been authorized by FDA under an EUA for use by authorized laboratories. This test is only authorized for the duration of the declaration that circumstances exist justifying the authorization of emergency use of in vitro diagnostic tests for detection and/or diagnosis of COVID-19 under Section 564(b)(1) of the Federal Food, Drug and Cosmetic Act, 21 U.S.C. 360bbb-3(b)(1), unless the authorization is terminated or revoked sooner. Fact Sheet for Healthcare Providers: https://www.[employer] m/Documents/Xpert%20Xpress%20SARS%20CoV-2/Fact%20Sheets/302-3802%21BKNS-[email or web address]%20 HEALTHCARE%20PROVIDERS%20FACT%20SHEET.pdf Fact Sheet for Healthcare Patients: https://www.[employer]etric[employer]/Documents/Xpert%20Xp ress%20SARS%20CoV-2/Fact%20Sheets/302-3801%20JUKF-VUI-1%20PATIENT%20FACT%20SHEET .pdfB-TYPE NATRIURETIC FACTOR (BNP)2021-10-03 21:01:58 Test Item Value Reference Range Interpretation Comments B-TYPE NATRIURETIC PEPTIDE (BEAKER) < pg/mL 0-100 (test code = 700) Oyster Fisherman ID - BSHCG, QUANTITATIVE, [id number] 21:01:53 Test Item Value Reference Range Interpretation Comments GONADOTROPIN, CHORIONIC (HCG) QUANT < mIU/mL 0-10 (BEAKER) (test code = 649) Non- Females: <10 mIU/mL Females: Gestation Age Reference Range(mIU/mL) 0.2-1 Week 5-50 1-2 Weeks 50-500 2-3 Weeks 100-5,000 3-4 Weeks 500-10,000 4-5 Weeks 1,000-50,000 5-6 Weeks 10,000-100,000 6-8 Weeks 15,000- 200,000 2-3 Months 10,000-100,000 Oyster Fisherman ID - BSHIGH SENSITIVITY TROPONIN I 2021-10-03 20:36:14 Test Item Value Reference Range Interpretation Comments HIGH SENSITIVITY < pg/ml See_Comment [Automated message] TROPONIN I (test code = The system which 0577981) generated this result transmitted ref erence range: <=17. Th e reference range was not used to interpr et this result as normal/abnormal . Oyster Fisherman ID - BSThe APPLICATION SUPPORT DEVELOPER STAT High Sensitivity Troponin-I results should be used in conjunctionwith other diagnostic information such as ECG, clinical observations and information, and patient symptoms to aid in the diagnosis of [place].[id number] 20:31:56 Test Item Value Reference Range Interpretation Comments LIPASE (BEAKER) (test code = 749) 17 U/L 8-78 Oyster Fisherman ID - [id number] 20:31:55 Test Item Value Reference Range Interpretation Comments MAGNESIUM (BEAKER) (test code = 2.0 mg/dL 1.6-2.6 627) Oyster Fisherman ID - [id number] 20:31:55 Test Item Value Reference Range Interpretation Comments PHOSPHORUS (BEAKER) (test code = 3.2 mg/dL 2.3-4.7 604) Oyster Fisherman ID - BSCOMPREHENSIVE METABOLIC [id number] 20:31:54 Test Item Value Reference Range Interpretation Comments TOTAL PROTEIN 7.7 gm/dL 6.0-8.3 (BEAKER) (test code = 770) ALBUMIN (BEAKER) 4.6 g/dL 3.5-5.0 (test code = 1145) ALKALINE PHOSPHATASE 57 U/L 40-150 (BEAKER) (test code = 346) BILIRUBIN TOTAL 0.6 mg/dL 0.2-1.2 (BEAKER) (test code = 377) SODIUM (BEAKER) (test 138 meq/L 136-145 code = 381) POTASSIUM (BEAKER) 4.2 meq/L 3.5-5.1 (test code = 379) CHLORIDE (BEAKER) 108 meq/L 98-107 H (test code = 382) CO2 (BEAKER) (test 20 meq/L 22-29 L code = 355) BLOOD UREA NITROGEN 20 mg/dL 7-21 (BEAKER) (test code = 354) CREATININE (BEAKER) 0.82 mg/dL 0.57-1.25 (test code = 358) GLUCOSE RANDOM 78 mg/dL 70-105 (BEAKER) (test code = 652) CALCIUM (BEAKER) 9.2 mg/dL 8.4-10.2 (test code = 697) AST (SGOT) (BEAKER) 18 U/L 5-34 (test code = 353) ALT (SGPT) (BEAKER) 18 U/L 6-55 (test code = 347) EGFR (BEAKER) (test 77 mL/min/1.73 ESTIMA SVETLANA GFR IS code = 1092) sq m NOT ACCURATE CREATININE CLEARANCE IN PREDICTING GLOMERULAR FILTRATION RATE . ESTIMATED GFR I S NOT APPLICABLE FOR DIALYSIS PATIEN TS. Oyster Fisherman ID - BSLACTIC ACID, [id number] 20:28:31 Test Item Value Reference Range Interpretation Comments LACTATE BLOOD VENOUS 0.65 mmol/L 0.50-2.20 Specime n slightly (2) (BEAKER) (test hemolyzed code = 8038) Oyster Fisherman ID - BSURINALYSIS W/ REFLEX URINE [id number] 20:21:36 Test Item Value Reference Range Interpretation Comments COLOR (BEAKER) (test code = 470) Yellow CLARITY (BEAKER) (test code = 469) Clear SPECIFIC GRAVITY UA (BEAKER) (test 1.024 1.001-1.035 code = 468) PH UA (BEAKER) (test code = 467) 5.5 5.0-8.0 PROTEIN UA (BEAKER) (test code = Negative Negative 464) GLUCOSE UA (BEAKER) (test code = Negative Negative 365) KETONES UA (BEAKER) (test code = Negative Negative 371) BILIRUBIN UA (BEAKER) (test code = Negative Negative 462) BLOOD UA (BEAKER) (test code = 461) Negative Negative NITRITE UA (BEAKER) (test code = Negative Negative 465) LEUKOCYTE ESTERASE UA (BEAKER) Negative Negative (test code = 466) UROBILINOGEN UA (BEAKER) (test code 0.2 mg/dL 0.2-1.0 = 463) RBC UA (BEAKER) (test code = 519) 1 /HPF WBC UA (BEAKER) (test code = 520) < /HPF BACTERIA (BEAKER) (test code = 517) Rare MUCUS (BEAKER) (test code = 1574) Rare SQUAMOUS EPITHELIAL (BEAKER) (test 1 /HPF code = 516) CRYSTALS, URINE (BEAKER) (test code None Seen = 1521) YEAST (BEAKER) (test code = 1585) Rare SOURCE(BEAKER) (test code = 4449) Oyster Fisherman ID - [auto]Oyster Fisherman ID - techCBC W/PLT COUNT & AUTO DIFFERENTIAL 2021-10-03 20:13:50 Test Item Value Reference Range Interpretation Comments WHITE BLOOD CELL COUNT (BEAKER) 7.3 K/ L 3.5-10.5 (test code = 775) RED BLOOD CELL COUNT (BEAKER) 4.84 M/ L 3.93-5.22 (test code = 761) HEMOGLOBIN (BEAKER) (test code = 15.4 GM/DL 11.2-15.7 410) HEMATOCRIT (BEAKER) (test code = 45.0 % 34.1-44.9 H 411) MEAN CORPUSCULAR VOLUME (BEAKER) 93.0 fL 79.4-94.8 (test code = 753) MEAN CORPUSCULAR HEMOGLOBIN 31.8 pg 25.6-32.2 (BEAKER) (test code = 751) MEAN CORPUSCULAR HEMOGLOBIN CONC 34.2 GM/DL 32.2-35.5 (BEAKER) (test code = 752) RED CELL DISTRIBUTION WIDTH 13.0 % 11.7-14.4 (BEAKER) (test code = 412) PLATELET COUNT (BEAKER) (test 258 K/CU MM 150-450 code = 756) MEAN PLATELET VOLUME (BEAKER) 9.2 fL 9.4-12.3 L (test code = 754) NUCLEATED RED BLOOD CELLS 0 /100 WBC 0-0 (BEAKER) (test code = 413) NEUTROPHILS RELATIVE PERCENT 51 % (BEAKER) (test code = 429) LYMPHOCYTES RELATIVE PERCENT 36 % (BEAKER) (test code = 430) MONOCYTES RELATIVE PERCENT 11 % (BEAKER) (test code = 431) EOSINOPHILS RELATIVE PERCENT 1 % (BEAKER) (test code = 432) BASOPHILS RELATIVE PERCENT 1 % (BEAKER) (test code = 437) NEUTROPHILS ABSOLUTE COUNT 3.74 K/ L 1.56-6.13 (BEAKER) (test code = 670) LYMPHOCYTES ABSOLUTE COUNT 2.60 K/ L 1.18-3.74 (BEAKER) (test code = 414) MONOCYTES ABSOLUTE COUNT (BEAKER) 0.83 K/ L 0.24-0.36 H (test code = 415) EOSINOPHILS ABSOLUTE COUNT 0.07 K/ L 0.04-0.36 (BEAKER) (test code = 416) BASOPHILS ABSOLUTE COUNT (BEAKER) 0.04 K/ L 0.01-0.08 (test code = 417) IMMATURE GRANULOCYTES-RELATIVE 0 % 0-1 PERCENT (BEAKER) (test code = 2801) RAD, CHEST, 2 [id number] 19:36:00Reason for exam:->SHORTNESS OF BREATHReason for exam:->ABDOMINAL PAINReason for exam:->cough [facility] : 1980 Sex: FFINAL REPORT CLINICAL HISTORY: SHORTNESS OF BREATHABDOMINAL PAINcough Two views of the chest are submitted. COMPARISON:01/18/2016 The cardiomediastinal and hilar contours are unremarkable. There is no focal consolidation, pleural effusion, pneumothorax or evidence of overt pulmonaryedema. There is no acute bony abnormality. IMPRESSION: No acute abnormality. Signed: Ashli Case MD Report Verified Date/Time: 10/03/2021 19:36:46 MR, PELVIS, WITHOUT IV [id number] 08:44:00Evaluate for sacroiliitisUnlisted Reason for Exam - Click Yes and Enter Reason Below->YesUnlistedReason for Exam->Low back pain, unspecified back pain laterality, unspecified chronicity, unspecified whether sciatica present [facility] : 1980 Sex: FFINAL REPORT MRI of the pelvis/sacroiliac joints without contrast. History: Low back pain. Pain worse with sitting. History of endometriosis. Sacroiliitis Technique: Multiplanar multisequence MRI of the pelvis with attention to the sacroiliac joints without contrast. Findings: Small amount of free pelvic fluid could be physiologic. No lymphadenopathy is seen. Suspected intrauterine device within the endometrial canal. The remainder the visualized pelvic structures are otherwise grossly unremarkable. No acute fracture, subluxation or avascular necrosis. No osseous erosion or focal bone marrow edema to suggest sacroiliitis. The visualized muscles are normal in size, signal intensity and morphology. No ligamentous or tendon tear is seen. The visualized neurovascular bundles are intact. Impression:No osseous erosion or focal bone marrow edema to suggest sacroiliitis. If indicatedMRI of the lumbar spine may be of benefit. Signed: Ab Rogers MDReport Verified Date/Time: 11/01/2020 08:44:21 Reading Location: [facility] Reading Room [address] [place] [address] SARS-COV2/RT-PCR ([facility])2020-07-23 08:04:00 Test Item Value Reference Range Interpretation Comments SARS-COV2/RT-PCR (test Negative Not Detected, Negative, code = 5424366) See external report for linked test SARS-COV-2 PERFORMING LAB [facility] (test code = 9797814) Negative result for this test determines that [...] individuals suspected of COVID-19 by their healthcare provider.This test [...] justifying the authorization of the emergency use ofin vitro diagnostic tests for detection and/or diagnosis of COVID-19 is terminated under Section 564(b)(2) of the Act or the EUA is revoked under Section 564(g) of the Act.Testing was performed using the [employer] SARS-CoV-2 assay.Fact Sheet for Healthcare Providers:https://www.mydeco.sellers/louis/RT_SAR B-JcD-2_JAD_Bxty_Lonjc_30-950500.pdfFact Sheet for Healthcare Patients:https://www.mydeco.sellers/s al/TK_DJMT-LqA-3_Vrhdtyf_Mtxg_Ntykp_YA_38-749397C0.pdfPerforming Laboratory:[address] [address] TISSUE [id number] 11:46:00Surgical Pathology Report Case: [id number] Authorizing Provider: Sydney Gonzalez MD Collected: 03/03/2020 02:37 PM Ordering Location: [facility] Endoscopy Received: 03/04/2020 08:23 AM Services Pathologist: Anel Rincon MD Specimens: A) - Duodenum, biopsy B) - Biopsy, Gastric, random C) - Polyp,Gastric, removed w forcep D) - Distal Esophagus, biopsy E) - Proximal Esophagus, biopsy F) - Cecum,biospy G) - Biopsy, Terminal Ileum H) - Large Intestine, Colon - Right/Ascending, biopsy I) - Large Intestine, Colon - Transverse, biopsy J) - Large Intestine, Colon - Left/Descending, biopsy K) - Polyp, Colon - Left/Descending, removed w hot snare L) - Large Intestine, Colon - Sigmoid, biopsy M) - Rectum, biopsy A. DUODENUM, BIOPSY: - DUODENAL MUCOSA WITH PRESERVED VILLOUS ARCHITECTURE AND NO SIGNI FICANT DIAGNOSTIC ALTERATION. - NEGATIVE FOR FEATURES OF [...] WITH NO SIGNIFICANT DIAGNOSTIC ALTERATION. - NEGATIVE FORDYSPLASIA OR MALIGNANCY.G. TERMINAL ILEUM, BIOPSY: - ILEAL MUCOSA WITH NO SIGNIFICANT DIAGNOSTIC ALTERATION. - NEGATIVE FOR DYSPLASIA OR MALIGNANCY.H. COLON,RIGHT/ASCENDING, BIOPSY: - COLONIC MUCOSA WITH NO SIGNIFICANT DIAGNOSTIC ALTERATION. - NEGATIVE FOR MICROSCOPIC COLITIS. - NEGATIVE FOR DYSPLASIAOR MALIGNANCY.I. COLON, TRANSVERSE, BIOPSY: - COLONIC MUCOSA [...] OR MALIGNANCY. Signing Pathologist Direct Phone Line: [phone] signed by Anel Rincon MD on 03/07/2020 at 11:46 [id number] X 13, [id number] X 2Screening for viral disease, ulcerative proctitis with rectal bleeding.A. Duodenum B. Gastric biopsy C. Gastric polypD. Distal esophagusE. Proximal esophagusF. CecumG. Tympanic membrane biopsy H. Right/ascending colon I. Transverse colon J. Left/descending colon K. Left/descendingcolon polyp L. Sigmoid colonM. Rectum A. Received in formalin labeled with the patient's name, accession number and "duodenum" are four webster-pink tissue fragments measuring up to 0.3 cm in greatest dimension, which are filtered and submitted in toto in A1.B. Received in formalin labeled with the patient's name, accession number and "gastric biopsy" are two webster-pink tissue fragments measuring up to 0.3cm in greatest dimension, which is filtered and submitted in toto in B1.C. Received in formalin labeled with the patient's name, accession number and "gastric polyp" is a 0.2 x 0.2 x 0.1 cm webster-pink tis robert fragment, which is filtered and submitted in toto in C1.D. Received in formalin labeled with thepatient's name, accession number and "distal esophagus" are [...] accession number and "right/ascending colon" are three webster- pink tissue fragments measuringup to 0.3 cm in greatest dimension, which [...] 0.3 cm in greatest dimension, which are f iltered and submitted in toto in J1.E. Received [...] are filtered and submitted in toto in K1.L.Received in formalin labeled with the patient's name, accession number and "sigmoid colon" are threetan-pink tissue fragments measuring up to 0.3 cm in greatest dimension, which are filtered and submitted in toto in L1.M. Received in formalin labeled with the patient's name, accession number and "rectum" are three webster-pink tissue fragments measuring up to 0.2 cm in greatest dimension, which are filtered and submitted in toto in M1. PA/ewPerformed.The interpretation of this case included the use of i mmunohistochemistry or special stains.Control Slides Examined: In-house known positive controls wereevaluated along with the test tissue. These control slides run alongside of the patients sample showappropriate staining. Internal positive and negative controls when available are evaluated Immunohistochemistry technical testing was performed at [facility], Pathology Laboratorywhere it was developed and its performance characteristics [...] qualified to perform high complexity clinical laboratory testing.[facility] [place], Department of Pathology, [address] [place] [address], [place] [address], [facility] of [facility], [address] [place] [address], [facility], [address] [place] [address], Ascpg 2 [id number] 05:43:51 No acute intrathoracic abnormality. Preliminary Report Dictated by Resident: Casa Navarro MD., have reviewed this study and agree with the abovereport.PROCEDURE: XR CHEST 2 VW CLINICAL INDICATION: SOB COMPARISON: None FINDINGS: The lungs are clear. No pleural effusion or pneumothorax is seen. The heartis normal in size. No acute bony abnormality. [facility], Radiant Results Inft User - 12/22/2019 12:44 AM CDTPROCEDURE: XR CHEST 2 VWCLINICAL INDICATION: SOB COMPARISON: NoneFINDINGS:The lungs are clear. No pleural effusion or pneumothorax is seen. The heartis normal in size.No acute bony abnormality.IMPRESSIONNo acute intrathoracic abnormality.Preliminary Report Dictated by Resident: Casa Roman MD., have reviewed this study and agree with the abovereport.[facility] CenterD-[id number] 04:42:00 Test Item Value Reference Interpretation Comments Range D-DIMER (test code = See_Comment H [Autom ated 5178742359) message] The system which generated this result transmitted reference range : <0.41 ?g/mL (FEU). The reference range was not used to interpret this result as normal/abnormal . PEYTON (test code = This test may be PEYTON) used in conjunction with a clinical pretest probability (PTP) assessment model to exclude venous thromboembolism (VTE) in patients suspected of deep venous thrombosis (DVT) and pulmonary embolism (PE) A D-Dimer value less than 0.50 ?g/ml (FEU) has a negative predicative value of [...] the clinical context, in forming a diagnosis. Lab Interpretation Abnormal (test code = 33496-0) [facility] CenterCOVID-19 (ID NOW RAPID TESTING)2019-12-22 04:20:00 Test Item Value Reference Range Interpretation Comments SARS-CoV-2 Rapid ID NOW Not Detected Not Detected (test code = 23267-0) PEYTON (test code = PEYTON) ID NOW COVID-19 Assay is an isothermal nucleic acid amplification test intended for the qualitative detection of nucleic acid from SARS-CoV-2 viral RNA in nasopharyngeal (TRIAGE CLINICIAN) specimens. It is used under Emergency Use Authorization (EUA) by FDA. The limit of detection (LOD) of the assay is 125 Genome Equivalents/mL. A positive result is indicative of the presence of SARS-CoV-2 RNA. ?Clinical correlation with patient history and other diagnostic [...] for repeat patient testing if clinically indicated. Lab Interpretation Normal (test code = 14719-1) [facility] Metabolic Panel (NA, K, CL, CO2, GLUCOSE, BUN, CREATININE, CA)2019-12-22 04:17:00 Test Item Value Reference Range Interpretation Comments NA (test code = 138 mmol/L 135-145 5621644693) K (test code = 5.3 mmol/L 3.5-5 H Slight 0766840364) hemolysis CL (test code = 106 mmol/L 98-108 0504622750) CO2 TOTAL (test code 23 mmol/L 23-31 = 2052692249) AGAP (test code = 2-16 7305635044) BUN (test code = 23 mg/dL 7-23 Slight 4905589980) hemolysis GLUCOSE (test code = 100 mg/dL 70-110 3794578918) CREATININE (test code 0.95 mg/dL 0.5-1.04 = 8660605099) CALCIUM (test code = 9.2 mg/dL 8.6-10.6 9755408659) eGFR Calculation mL/min/1.73m2 (Non-) (test code = 3422464837) eGFR Calculation mL/min/1.73m2 () (test code = 4453194898) PEYTON (test code = PEYTON) Association of Glomerular Filtration Rate (GFR) and Staging of Kidney Disease* + -----+ --------+ +| GFR (mL/min/1.73 m2) ?| With Kidney Damage ?| ?Without Kidney Damage+ +------- +---- --+| ?>90 ?| ?Stage one ?| ? Normal ?+ ------+ ---------+--------- +| ?60-89 ?| ?Stage two ?| ? Decreased GFR ? + -----+ --------+ +| ?30-59 ?| ?Stage three ?| ? Stage three ? + -----+ --------+ +| ?15-29 ?| ?Stage four ? | ? Stage four ?+ ------+ ---------+--------- +| ?<15 (or dialysis) ? ?| ?Stage five ? | ? Stage five ?+ ------+ ---------+--------- + *Each stage assumes the associated GFR level has been in effect for at least three months. ?Stages 1 to 5, with or without kidney disease, indicate chronic kidney disease. Notes: Determination of stages one and two (with eGFR >59mL/min/1.73 m2) requires estimation of kidney damage for at least three months as defined by structural or functional abnormalities of the kidney, manifested by either:Pathological abnormalities or Markers of kidney damage (including abnormalities in the composition of the blood or urine or abnormalities in imaging tests). Lab Interpretation Abnormal (test code = 32581-2) [facility] Center[facility] (ALB, T.PRO, BILI T, BU/BC, ALT, AST, ALK PHOS)2019-12-22 04:17:00 Test Item Value Reference Range Interpretation Comments TOTAL BILI (test code = 0.6 mg/dL 0.1-1.2 4160359364) BILI UNCON (test code = 0.5 mg/dL 0.1-1.6 7542424996) BILI CONJ (test code = 0.0 mg/dL 0-0.3 3346533479) T PROTEIN (test code = 8.1 g/dL 6.3-8.2 4898584116) ALBUMIN (test code = 4.4 g/dL 3.5-5 0434974321) ALK PHOS (test code = 80 U/L 34-122 Slight hemolysis 8556705738) ALTv (test code = 1742-6) 25 U/L 5-35 AST(SGOT) (test code = 38 U/L 13-40 Sligh t hemolysis 9057619960) Lab Interpretation (test Normal code = 18982-8) [facility] CenterTroponin [id number] 04:17:00 Test Item Value Reference Range Interpretation Comments TROPONIN I (test <0.012 See_Comment [Automated code = 4616175874) message] The system which generated this result transmitted reference range : <=0.034 ng/mL. The reference range was not used to interpr et this result as normal/abnormal . PEYTON (test code = Equal or Less than PEYTON) 0.034 ng/ml---Normal ?Note: Cardiac troponin begins to rise 3-4 hours after the onset of ischemia. Repeat in 4-6 hours if the sample was drawn within 3-4 hours of the onset of the symptom and found normal. Between 0.035 and 0.120 ng/mL--- Borderline. Questionable myocardial injury or necrosis ? ?Note: Serial measurement may be necessary to confirm or exclude the diagnosis of myocardial injury or necrosis; Clinical correlation (symptoms, EKGs, imaging studies, and others) required; Repeat in 4-6 hours if clinically indicated. ? Equal or Higher than 0.121 ng/mL---Abnormal. Myocardial Injury or Necrosis Likely ? Biotin has been reported to cause a negative bias, interpret results relative to patient's use of biotin. ? Lab Interpretation Normal (test code = 42598-4) [facility] CenterN-TERMINAL [id number] 04:17:00 Test Item Value Reference Range Interpretation Comments NT-proBNP (test code 201 pg/mL See_Comment H [Autom ated = 6320880944) message] The system which generated this result transmitted reference range : <=125. The reference range was not used to interpret this result as normal/abnormal . PEYTON (test code = PEYTON) Biotin has been reported to cause a negative bias, interpret results relative to patient's use of biotin. Lab Interpretation Abnormal (test code = 19096-4) [facility] CenterUrinalysis2020-06-30 04:01:00 Test Item Value Reference Range Interpretation Comments APPEARANCE (test code = Hazy Clear A 3999316698) COLOR (test code = Yellow Yellow 7969847735) PH (test code = 4.8-8.0 4221152919) SP GRAVITY (test code = 1.003-1.030 0954370908) GLU U QUAL (test code = Normal Normal 2195288173) BLOOD (test code = 2+ Negative A 5359933604) KETONES (test code = Negative Negative 6958804100) PROTEIN (test code = Negative Negative 2887-8) UROBILIN (test code = Normal Normal 6787520808) BILIRUBIN (test code = Negative Negative 2471334424) NITRITE (test code = Negative Negative 1573081510) LEUK SOLOMON (test code = Negative Negative 1961722359) RBC/HPF (test code = See_Comment H [Autom ated message] 4383081562) The system [employer] generated this result transmitted ref erence range: 0 - 3 HP F. The reference range was not used to int erpret this result as normal/abnormal . WBC/HPF (test code = See_Comment [Autom ated message] 8969832278) The system [employer] generated this result transmitted ref erence range: 0 - 5 HP F. The reference range was not used to int erpret this result as normal/abnormal . BACTERIA (test code = Few Negative A 1695519420) MUCOUS (test code = Slight Negative LPF A 9653761934) SQ EPITH (test code = HPF 4790049339) Lab Interpretation (test Abnormal code = 03341-0) [facility] CenterCB WITH [id number] 03:54:00 Test Item Value Reference Range Interpretation Comments WBC (test code = See_Comment [Automated 6690-2) message] The sy stem which generated this result transmitted reference range : 4.30 - 11.10 10*3/?L. The reference range was not used to interpret this result as normal/abnormal . RBC (test code = See_Comment [Automated 789-8) message] The sy stem which generated this result transmitted reference range : 3.93 - 5.25 10*6/?L. The reference range was not used to interpret this result as normal/abnormal . HGB (test code = 14.5 g/dL 11.6-15 718-7) HCT (test code = 43.6 % 35.7-45.2 4544-3) MCV (test code = 89.0 fL 80.6-95.5 787-2) MCH (test code = 29.6 pg 25.9-32.8 785-6) MCHC (test code = 33.3 g/dL 31.6-35.1 786-4) RDW-SD (test code = 42.8 fL 39-49.9 92782-5) RDW-CV (test code = 13.1 % 12-15.5 788-0) PLT (test code = See_Comment [Automated 777-3) message] The sy stem which generated this result transmitted reference range : 166 - 358 10*3/ ?L. The reference r skye was not used to interpret this result as normal/abnormal . MPV (test code = 9.4 fL 9.5-12.9 L 96937-2) NRBC/100 WBC (test See_Comment [Automat ed code = 1852480871) message] The system which generated this result transmitted reference range : 0.0 - 10.0 /100 WBCs. The refer ence range was not u sed to interpret th is result as normal/abnormal . NRBC x10^3 (test code <0.01 See_Comment [Auto mated = 3046268476) message] The s ystem which generated this result transmitted reference range : 10*3/?L. The reference range was not used to interpret this result as normal/abnormal . GRAN MAT (NEUT) % 59.8 % (test code = 770-8) IMM GRAN % (test code 0.50 % = 3042301058) LYMPH % (test code = 30.8 % 736-9) MONO % (test code = 7.9 % 5905-5) EOS % (test code = 0.4 % 713-8) BASO % (test code = 0.6 % 706-2) GRAN MAT x10^3(ANC) 6.50 10*3/uL 1.88-7.09 (test code = 6876163191) IMM GRAN x10^3 (test 0.05 10*3/uL 0-0.06 code = 6167525709) LYMPH x10^3 (test code 3.34 10*3/uL 1.32-3.29 H = 731-0) MONO x10^3 (test code 0.86 10*3/uL 0.33-0.92 = 742-7) EOS x10^3 (test code = 0.04 10*3/uL 0.03-0.39 711-2) BASO x10^3 (test code 0.06 10*3/uL 0.01-0.07 = 704-7) Lab Interpretation Abnormal (test code = 87165-7) [facility] CenterPOCT [id number] 03:21:00 Test Item Value Reference Range Interpretation Comments POCT PREG (test code = 1605) negative On board controls acceptable with yes C Line (test code = 3574) POCT PREG LOT # (test code = 3575) [id number] POCT PREG TEST DATE (test 01/21/2021 code = 3576) Lab Interpretation (test code = Normal 49577-1) [facility] [id number] 18:46:31 Mild hip osteoarthrosis No acute osseous abnormality. EXAM: XR HIPS 2 VW RIGHT HISTORY: 39 years-old Female pain with movement COMPARISON: None. FINDINGS: No acute fracture or dislocation. mild hip joint space narrowing andsuperior acetabular sclerosis with marginal osteophytes are noted. No softtissue abnormality is seen. [facility], Radiant Results Inft User - 08/20/2019 12:47 PM CSTEXAM: XR HIPS 2 VW RIGHTHISTORY: 39 years-old Female pain with movement COMPARISON: None.FINDINGS:No acute fracture or dislocation. mild hip joint space narrowing andsuperior acetabular sclerosis with marginal osteophytes are noted. No softtissue abnormality is seen.IMPRESSIONMild hip osteoarthrosisNo acute osseous abnormality.[facility] CenterPost Op Promis 29 [id number] 13:33:12 Test Item Value Reference Range Interpretation Comments Pain Interference: (test code = Pain 73.7 1 N Interference:) Pain Intensity: (test code = Pain 53.7 1 N Intensity:) Physical Function: (test code = 21.3 1 N Physical Function:) Satisfaction Role: (test code = 35.6 1 N Satisfaction Role:) [facility] Shoulder wo contrast [id number] 11:13:00PROCEDURE INFORMATION:Exam: MR Right Upper Extremity Joint Without Contrast, ShoulderExam date and time: 04/24/2019 11:27 AMClinical history: 38 years old, female; Pain in right shoulder; Additionalinfo: M25.511 pain in right shoulder/m25.511 pain in right shoulderTECHNIQUE:Imaging protocol: MR of the Right upper extremity without contrast. Examfocused on the shoulder.COMPARISON:No relevant prior studi es available.FINDINGS:ROTATOR CUFF AND ASSOCIATED STRUCTURESRotator cuff: There [...] T2 hyperintense lesion in the proximalhumerus, measuring a pproximately 2.6 x 1.7 x 1.6 cm. This is most likely achondroid matrix lesion. No significant perilesional edema. Scattereddegenerative marrow edema and cystic changes.LONG BICIPITAL TENDONThe biceps tendon is normally situated within the bicipital groove. No completeor partial biceps tendon tear is pr esent.GLENOHUMERAL JOINTJoint fluid: There is a trace glenohumeral joint effusion.Cartilage and Bone: No definitive chondral defects.Labrum: No definitive labral tear.Other support structures: No capsular or ligamentous abnormality is seen.IMPRESSION:1. Locally, partial-thickness articular surface tear of the infraspinatusinsertion. Mild diffuse supraspinatus and infraspinatus tendinosis.2. Minimal AC joint arthrosis.3. Probable low-grade/nonaggressive chondroid matrix lesion in the proximalhumerus.Meliton Rush MD On 04/24/2019 13:45:44; [id number]--Ddaq by: Meliton Rush MDDictated Date/time: 04/24/19 13:45Electronically Signed by: Meliton Rush MD 04/24/1913:45FINAL REPORTUT [facility]] CULTURE, URINE, [id number] 12:00:00 Test Item Value Reference Range Interpretation Comments CULTURE (test code = See Comment CULTURE , URINE, CULTURE) ROUTINE MICRO NUMBER: [id number] TEST S TATUS: FINAL SPECIMEN SOURCE: URINE, CLEAN CA TCH SPECIMEN QUALIT Y: ADEQUATE RESULT : Multiple organi sms present, each l ess than 10,000 CF U/mL. These organisms , commonly found on external and in ternal genitalia, are considered to b e colonizers. No further testing perform ed. [facility][] DRUG SCREEN,COMPREHENSIVE (URINE)2019-02-11 14:49:00 Test Item Value Reference Interpretation Comments Range PLEASE NOTE: See Below * These results are for (test code = medical treatme nt only. * * PLEASE NOTE:) Analysis was p erformed as non-forensic te sting. * URINE RESULTS DRUG(S) A (test code = DETECTED: URINE RESULTS) BENZODIAZEPINES BENZODIAZEPINES A BY IMMUNOASSAY BY IMMUNOASSAY (test code = BENZODIAZEPINES BY IMMUNOASSAY) See Comment See Comment A PATIENT RESULTS ARE (test code = See INDICATED A SCARLET. URINE WAS Comment) TESTED FOR THE FOLLOWING: ANALGESICS SANDRA ITURATES PHENCYCLIDINEAN TIARRYTHMICS BENZODIAZEPINE METABS. SEDATIVES/HYPNO TICSANTICONVU LSANTS CANNABIN OIDS STIMULANTSANTID EPRESSANTS COCAINE METABOL ITE VOLATILESANTIHI STAMINES OPIATES/NARCOTI CSANTIPSYCHOT ICS MUSCLE RELA XANTS PLEASE REFER TO FRANK Mahajan DIRECTORY OF SERVICES FOR SPECIFICS ONWHICH DRUGS A RE TESTED. [facility]US Abdomen Doppler [id number] 11:02:00Patient Name: TODD CULVERODOB: 1980; Age: 38 years y/o FemaleMR: [id number] ULTRASOUND with Doppler studiesHistory: splenomegaly Technique: The abdomen was evaluated with dynamic ultrasound scanning. Duplex(grayscale, color-flow, and spectral Doppler) evaluation of the splenic artery,splenic vein, inferior vena cava, abdominal aorta, portal veins, hepaticarteries, and hepatic veins was performed.Prior studies reviewed: noneFINDINGS:Gallbladder: Status post cholecystectomy.* Common bile duct: Within normal limits, 4 mm in diameter.* Intrahepatic ducts: Not dilated.* Liver: Normal insize and echogenicity. No focal lesions are seen.* [...] demonstrate no significant abnormalities. Good arterial flow isdemonstrated in the hepatic arteries, splenic artery and abdominal aorta. Thereis normal hepatopedal portal venous flow andpatency of the portal venousbranches. The splenic vein is patent. The hepatic veins are patent.IMPRESSION: ( )1. Status post cholecystectomy.2. Status post right nephrectomy.3. Normal Doppler studies as described above.SL: [id number]--Hadi by: Kwaku Hedrick MDDictated Date/time: 02/10/19 15:13Ele ctronically Signed by: Kwaku Hedrick MD 02/10/1915:20FINAL REPORT[facility]] CALPROTECTIN, [id number] 14:43:01 Test Item Value Reference Range Interpretation Comments Calprotectin (test 30 ug/g 0-120 Concentra tion code = Calprotectin) Interpr etation Follow-Up<16 - 50 ug/g Normal None>50 -120 ug/g Borderline Re- evaluate in 4-6 weeks >120 ug/g Abnormal Repeat as clinically indicatedPerfor med At: [facility] [id number] [place], [place] [id number] ra Shanthi SANDOVAL Ph:[phone] [facility] Clavicle Bilateral [id number] 14:03:00Clinical Indication: - M89.8X1 Other specified disorders of bone, shoulder,M79.18 Myalgia, other site, M25.50 Pain in unspecified joint, M94.0 Chondrocostal junction syndrome [Tietze]; clavicle pain for 5 daysComparison: NoneTECHNIQUE: AP and axial views of the bilateral claviclesFINDINGS: No acute fracture or malalignment is identified. Thesternoclavicular joints are within normal limits as are the acromioclavicularjoints.No soft tissue abnormality is identified.IMPRESSION: No acute abnormality.SL:[id number]--Urzu by: Oj Boswell MDDictated Date/time: 01/30/19 14:33Electronically Signedby: Oj Boswell MD 01/30/1914:34FINAL REPORT[facility]] HEPATIC FUNCTION [id number] 14:45:01 Test Item Value Reference Range Interpretation [...] of pediatric refer ence intervals to eSiemens Dexter analyzer (Clinical Biochemistry 46 (2013): 3661-3132). [facility] [employer] [facility] has not internally validated these reference ranges and therefore they should be used only in th e context of a thoroughcl inical assessment. AST (test code = 11 u/l 0-37 67811-9) ALT (test code = 20 u/l 0-65 1743-4) Globulin (test code 3.6 g/dl 2.7-4.2 = 63846-9) A/G Ratio (test 1.1 0.7-1.6 code = 1759-0) [facility][H] Celiac Pnl w/Rflx Endomy Ab [id number] 14:45:01 Test Item Value Reference Range Interpretation Comments IgA Lvl (test code = 2458-8) 234.0 mg/dl 68.0-378.0 Gliadin (Deamidated Peptide)IgA <0.2 <=14.9 Ab (test code = 06240-1) Gliadin (Deamidated Peptide)IgG 0.6 U/ml <=14.9 Ab (test code = 13864-5) Tissue Transglutaminase (tTG) IgA <0.5 <=14.9 (test code = 02159-2) Tissue Transglutaminase (tTg) IgG <0.8 <=14.9 (test code = 36682-3) [facility][H] LUNDBERG [id number] 14:45:01 Test Item Value Reference Range Interpretation Comments Bili Total (test code 0.5 mg/dl 0-1 = 1975-2) ALT (test code = 20 u/l 0-65 1743-4) AST (test code = 11 u/l 0-37 23748-7) Fibrosis Score (test 0.04 0.00-0.21 code = [...] > 0.69 = S3 - Marked or Sever e Steatosis LUNDBERG Score (test code 0.25 >0.25 = LUNDBERG Score) LUNDBERG Grade (test code Comment N0 - N ot LUNDBERG = LUNDBERG Grade) A 2 Macroglob (test 224 mg/dl 110-276 code = 94021-9) Haptoglobin; Above 208 mg/dl 34-200 High Threshold (test code = 45573-9) Apolipoprotein A-1 170 mg/dl 116-209 (test code = Apolipoprotein A-1) GGT (test code = 18 {iu/l} 0-60 2324-2) Chol (test code = 137 mg/dl 483-199 4825-3) Glucose Lvl (test 96 mg/dl 65-99 Adult refe rence range code = 2345-7) values reflec t the clinical guidel inesof the [place] Di abetes Association. Trig; Above High 182 mg/dl 0-149 Threshold (test code = 2571-8) LUNDBERG Interp (test Comment Quantitati ve results of code = LUNDBERG Interp) 10 bioch emicals in combination wit taye, gender, height, and weight, are warren lyzed using acomputat ional algorithm to pr [...] of significant fibrosis(1).Remigio atosis Marker: In a po pulation of 744 patients (583 HCV,18 HBV, 69 NAFLD, and 74 alcoholi c disease patient s), where36% had significant remigio atosis (>5%) on a live r biopsy, asteato sis score >0.5 had a sensitivity of 71% and aspecificity of 72% for identification of significantstea tosis(2) .LUNDBERG marker: I n a population of 2 57 NAFLD patients, [...] - 0.74 = Stage F3 - F4 > 0.74 = Stage F4 - Cirr hosis LUNDBERG Scoring (test Comment 0.25 = N0 - Not code = LUNDBERG Scoring) NASH0.5 0 = N1 - Borderline or p robable NASH0.75 = N2 - LUNDBERG LUNDBERG Limitations Comment LUNDBERG FibroS ure is (test code = LUNDBERG recommende d for Limitations) patients with suspectednon-al coholic fatty liver dis ease. It is not recommen dedfor patients with o ther liver diseases. It is also notrecomme nded in patients with G ilbert Disease, acutehemolysis, acute viral hepatitis , drug induced hepatitis,tobin ic liver disease, autoim mune hepatitis and/o r extra-hepatic cholestasis. An y of these clinical situations mayl ead to inaccurate erwin titative predictions of fibrosis. LUNDBERG References (test Comment This t est was developed code = LUNDBERG and its perform ance References) characteristics determinedby [facility]. It has not been cleared or approved by the Food and DrugAdminis tration. The FDA has det ermined that such clear ance orapproval is n ot necessary.For q uestions regarding this report please contactc [facility] service at . Referenc es:1. Latanya Desir al. Diagnostic Valu e of Biochemical Mar kers (FibroTest) for the prediction of L iver Fibrosis in pat ients with Non-Alcoho lic Fatty Liver Dis ease. BMC Gastroenter ology 2006; 6:6.2. Melanie Bates et al. The Diagnostic Valu e of Biomarkers (Remigio miko Test) for the Prediction of L iver Steatosis. Comp arative Hepatol. 2005; 4:10.3. Mike T, Suri Coyne, et al. Diagnostic valu e of biochemical mar kers (LUNDBERG TEST) for the prediction of n on alcohol steato hepatitis in pa tients with non- alcoh olic fatty liver dis ease. BMC Gastroenter ology 2006; 6:34 doi:10.1186/147 1-230X-6 -34.Performed A t: BN [facility] [id number] [place], [place] [id number] susana Maki MD Ph:[phone] [facility][H] CK [id number] 10:21:01 Test Item Value Reference Range Interpretation [...] [facility] (test code = Creatine Aaron [address] Kinase BB) Bld[address] [place] [id number] dilan SORIANO MD Ph:[phone] rformed At: HD [facility] [address] [place], [place] [id number] Kyle L MD Ph:[phone] [facility][H] Quantiferon Incubationa w/ Reflex to TB Gold [id number] 10:21:01 Test Item Value Reference Range Interpretation Comments Quantiferon Incubation Performed At: H D Incubation (test performed. [facility] code = Quantiferon [place] [address] [address] Incubation) [place], [place] [id number] judith Domínguez MD Ph:[phone] Quantiferon - TB Negative Negative Performed A t: BN Gold Plus (test [facility] code = Quantiferon [address]47 - TB Gold Plus) [place], [place] [id number] Maki MD Ph:[phone] [facility][H] Quantiferon Incubationa w/ Reflex to TB Gold [id number] 10:21:01 Test Item Value Reference Range Interpretation Comments Quantiferon Criteria Comment The Vasquez ntiFERON-TB (test code = Gold Plus resul t is Quantiferon determined Criteria) bysubtracting t he Nil value from [facility] TB antigen (Ag) tu be.The mitogen tube [...] BN code = Mitogen - [facility] NIL) [address] [place], [place] [id number] ra Shanthi SANDOVAL Ph:[phone] [facility] Shoulder series [id number] 10:49:00EXAM: XR SHOULDER 3 VIEWSDATE: 01/13/2019 10:49 [...] 13:48Electronically Signed by: Erik Foster MD 01/13/1913:49FINAL REPORTUT PhysiciansXRAY Spine lumbar AP lateral [id number] 10:49:00EXAM: XR LUMBAR SPINE 2 VIEWSDATE: 01/13/2019 10:49 CDTINDICATION: - Z87.39 Personal history of otherdiseases of themusculoskeletal system and connective tissueCOMPARISON: NoneTECHNIQUE: AP and lateralradiographs of the lumbar spineFINDINGS:. Vertebral body heights and disk heights are maintained. Alignment iswithin normal limits. Diffuse spondylotic changes are seen involving the lowerlumbar spine.Diffuse osteopenia.No soft tissue abnormality is identified.IMPRESSION: No bony abnormality. Normal alignment. Diffuse osteopenia..--Read by: Audie Pardo MDDictated Date/time: 01/13/19 17:49Electronically Signed by: Audie Pardo MD 01/13/1917:50FINAL REPORTUT PhysiciansXRAY Spine cervical 2 or 3 view [id number] 10:49:00EXAM: XR CERVICAL SPINE 3 VIEWSDATE: 01/13/2019 [...] 17:50Electronically Signed by: Audie Pardo MD 01/13/1917:50FINAL REPORTUT PhysiciansXRAY Knee 1-2 Views Bilateral [id number] 2019-01-13 10:48:00EXAM: XR BILATERAL KNEE 2 VIEWSDATE: 01/13/2019 [...] 13:29Electronically Signed by: Erik Foster MD 01/13/1913:30FINAL REPORTUT PhysiciansXRAY Hip bilateral w pelvis and both lat hips [id number] 10:48:00EXAM: XR BILATERAL HIP 2 VIEWS AND AP PELVISDATE: 01/13/2019 10:48 CDTINDICATION: - Z87.39 Personal history of other diseases of themusculoskeletal system and connective tissueCOMPARISON: NoneTECHNIQUE:AP and frogleg lateral views of the bilateral hips and a single APview of the pelvis.DISCUSSION: No acute fracture or malalignment is identified. Hip joint spacesare preserved bilaterally. No soft tissue abnormality is identified.IMPRESSION: Normal exam of the bilateral hips.--Read by: Erik Foster MDDictated Date/time: 01/13/19 13:35Electronically Signed by: Erik Foster MD 01/13/1913:37FINAL REPORTUT PhysiciansXRAY Chest 2 views [id number] 10:47:00EXAM: XR CHEST 2 VIEWSDATE: 01/13/2019 10:47 [...] No other consolidations. Consider repeat PA/lateral chest x-ray in 4-8 weeksto reassess.--Read by: Luis A Schumacher MD PHDDictated Date/time: 01/13/19 12:49Electronically Signed by: Luis A Schumacher MD 01/14/1912:50FINAL REPORT[facility]] URINALYSIS, COMPLETE W/REFLEX TO [id number] 10:10:01 Test Item Value Reference Range Interpretation Comments UA Color (test code = 5778-6) Jhoan UA Turbidity; Abnormal (test code Marked Clear A = 52693-8) UA Spec Grav; Above High Threshold 1.032 <=1.030 (test code = 5810-7) UA pH (test code = 5803-2) 5.0 5.0-8.0 UA Protein; Abnormal (test code = 30 mg/dl Negative A 98084-5) UA Glucose (test code = 62408-0) Negative Negative UA Ketones; Abnormal (test code = Trace Negative A 26010-2) UA Bili (test code = 5770-3) Negative Negative UA Blood; Abnormal (test code = Large Negative A 5794-3) UROBILINOGEN (test code = 33629-2) <=1.0 0.1-1.0 UA Nitrite (test code = 5802-4) Negative Negative UA Leuk Est (test code = 5799-2) Negative Negative UA RBC; Above High Threshold (test 10 {/HPF} 0-2 code = 21082-6) UA WBC; Above High Threshold (test 8 {/HPF} 0-5 code = 98463-6) UA Bacteria (test code = 28261-7) Few None Seen UA Mucus; Abnormal (test code = Many None Seen A 8247-9) UA Sq Epi (test code = 85770-2) Occasional Few [facility][QH] PROTEIN, TOTAL W/CREAT, RANDOM [id number] 10:10:01 Test Item Value Reference Range Interpretation Comments U Creatinine (test 303.00 mg/dl No establ ished code = 2161-8) reference ran ge. Urine Protein Level 51.5 mg/dl No estab lished (test code = 2888-6) referen ce ranges. U Prot/Creat (test 0.17 code = 2890-2) [facility][QH] HEPATITIS B SURFACE ANTIGEN W/REFL [id number] 10:10:01 Test Item Value Reference Range Interpretation Comments Hepatitis B Surface Antigen (test Negative Negative code = 5195-3) [facility][QLH] HEPATITIS C [id number] 10:10:01 Test Item Value Reference Range Interpretation Comments Hepatitis C Antibody (test code = Negative 48283-0) [facility][QH] CYCLIC CITRULLINATED PEPTIDE (CCP) AB (IGG)2019-01-13 10:10:01 Test Item Value Reference Range Interpretation Comments Cyclic Citrulline Peptide Antibody <0.5 <=2.9 (test code = 17363-3) [facility][O] Urine Dipstick (In Office)2018-12-29 16:04:00 Test Item Value Reference Range Interpretation Comments Glucose (test code = Glucose) 100 MG/dL LEUKOCYTES (test code = LARGE LEUKOCYTES) NITRITE (test code = 25987-0) POSITIVE UROBILINOGEN (test code = 4.0 E.U./dL 56708-5) PROTEIN (test code = 85720-4) >=300 MG/dL pH (test code = pH) 5.5 URINE BLOOD (test code = 64780-5) SMALL SPECIFIC GRAVITY (test code = >=1.030 2965-2) KETONES (test code = 40831-2) 15 MG/dL BILIRUBIN (test code = 07044-2) MODERATE COLOR URINE (test code = 5778-6) JHOAN APPEARANCE (test code = 5767-9) CLEAR [facility][QLH] URINALYSIS, [id number] 15:10:01 Test Item Value Reference Range Interpretation Comments UA Turbidity; Abnormal (test code Slight Clear A = 30780-6) UA Spec Grav; Above High Threshold 1.040 <=1.030 (test code = 5810-7) UA pH (test code = 5803-2) 5.0 5.0-8.0 UA Protein; Abnormal (test code = 100 mg/dl Negative A 16393-2) UA Glucose (test code = 56497-8) Negative Negative UA Ketones (test code = 23963-4) Negative Negative UA Bili (test code = 5770-3) Negative Negative UA Blood; Abnormal (test code = Small Negative A 5794-3) UROBILINOGEN; Above High Threshold 4.0 mg/dl 0.1-1.0 (test code = 64990-7) UA Nitrite; Abnormal (test code = Positive Negative A 5802-4) UA Leuk Est (test code = 5799-2) Negative Negative UA RBC; Above High Threshold (test 27 {/HPF} 0-2 code = 57421-7) UA WBC; Above High Threshold (test 14 {/HPF} 0-5 code = 70609-8) UA Bacteria (test code = 07516-2) Occasional None Seen UA Mucus; Abnormal (test code = Moderate None Seen A 8247-9) UA Sq Epi; Abnormal (test code = Moderate Few A 73578-3) UA Color (test code = 5778-6) Jhoan [facility][QL] CBC (INCLUDES DIFF/PLT)2018-12-29 15:10:01 Test Item Value Reference Range Interpretation Comments WBC; Above High Threshold (test 10.8 {K/CMM} 3.7-10.4 code = 6690-2) RBC (test code = 789-8) 4.47 {M/CMM} 4.20-5.40 Hgb (test code = 718-7) 14.4 g/dl 12.0-16.0 Hct (test code = 77743-0) 42.7 % 36.0-48.0 MCV (test code = 787-2) 95.6 fL 80.0-98.0 MCH; Above High Threshold (test 32.1 pg 27.0-31.0 code = 785-6) MCHC (test code = 786-4) 33.6 g/dl 32.0-36.0 RDW (test code = 788-0) 13.7 % 11.5-14.5 Platelet (test code = 48513-3) 335 {K/CMM} 133-450 Mean Platelet Volume (test code 8.3 fL 7.4-10.4 = 22011-5) [facility][QL] [id number] 15:10:01 Test Item Value Reference Range Interpretation Comments Segmented Neutrophils (test code 64.3 % 45.0-75.0 = 10623-5) Monocytes (test code = 99432-2) 7.6 % 2.0-12.0 Lymphocytes (test code = 47244-3) 26.8 % 20.0-40.0 Eosinophils (test code = 15016-8) 0.7 % 0.0-4.0 Basophils (test code = 706-2) 0.6 % 0.0-1.0 Segs-Bands # (test code = 6.9 {K/CMM} 1.5-8.1 48566-1) Lymphocytes # (test code = 2.9 {K/CMM} 1.0-5.5 27759-3) Monocytes # (test code = 14384-3) 0.8 {K/CMM} 0.0-0.8 Eosinophils # (test code = 0.1 {K/CMM} 0.0-0.5 31544-2) Basophils # (test code = 71797-8) 0.1 {K/CMM} 0.0-0.2 [facility][QH] HIV AB, HIV 1/2, EIA, WITH [id number] 15:10:01 Test Item Value Reference Range Interpretation Comments HIV Ag/Ab 4th Gen Negative Negative HIV test r esults should be (test code = considered posi tive only 56007-8) when both the s creening andthe confirma tory tests are positive. A negative confirmatory te st in patientswith a positive screening test does not exclude HIV inf ection. If clincallywarran svetlana, an HIV RNA quantitativ e test should be order ed. [facility][QLH] CMP [id number] 15:10:01 Test Item Value Reference Range Interpretation Comments Sodium Level 143 {mEq/l} 135-145 (test code = 2951-2) Potassium Level 4.2 {mEq/l} 3.5-5.1 (test code = 2823-3) Chloride Level 107 {mEq/l} 95-109 (test code = 5-0) Carbon Dioxide 25 {mEq/l} 24-32 (test code = 2027-9) AGAP (test code = 15.2 {mEq/l} 10.0-20.0 54544-4) Glucose Lvl; 106 mg/dl 70-99 Adult reference range Above High values reflect the Threshold (test clinical magali delinesof the code = 2345-7) [place] Of [place] Diab etes Association. Creatinine Lvl 1.10 mg/dl 0.50-1.40 (test code = 2160-0) Blood Urea 21 mg/dl 7-22 Nitrogen (test code = 3094-0) BUN/Creatinine 19 6-25 Ratio (test code = 3097-3) Total Protein 7.1 g/dl 6.4-8.4 (test code = 2885-2) Albumin Lvl (test 3.7 g/dl 3.5-5.0 code = 1751-7) Globulin (test 3.4 g/dl 2.7-4.2 code = 07476-3) A/G Ratio (test 1.1 0.7-1.6 code = 1759-0) Calcium Level 9.3 mg/dl 8.5-10.5 Total (test code = 10795-6) ALT (test code = 47 u/l 0-65 1743-4) AST (test code = 18 u/l 0-37 08296-9) Alk Phos (test 56 u/l 39-136 code = 1783-0) Bili Total (test 0.3 mg/dl 0.2-1.3 code = 1974-) eGFR (test code = 64 The eGFR i s calculated 15626-7) {ML/MIN/1.7} using the CKD-E PI formula. In [...] be multiplied by t he estimated BMI. [facility][] LIPID PANEL WITH REFLEX TO DIRECT [id number] 15:10:01 Test Item Value Reference Range Interpretation Comments LDL (test code = 04097-2) 36 mg/dl <=99 Chol (test code = 2093-3) 124 mg/dl <=199 Trig; Above High Threshold (test 223 mg/dl <=149 code = 2571-8) HDL Cholesterol; Below Low 43 mg/dl >=61 Threshold (test code = 2085-9) CHD Risk; Below Low Threshold (test 2.88 3.90-5.80 code = 93297-7) VLDL (test code = VLDL) 45 [facility]] TSH, 3RD GENERATION W/REFLEX TO [id number] 15:10:01 Test Item Value Reference Range Interpretation Comments TSH (test code = 64281-9) 2.550 {uIU/ml} 0.360-3.740 [facility][H] CRP, hs, Cardiac [id number] 15:10:01 Test Item Value Reference Range Interpretation Comments C-Reactive Protein High 25.9 mg/L Low Risk: <1.0 Sensitivity (test code = mg/ LAverage Risk: 11209-0) 1.0 - 3.0 mg/LH igh Risk: >3.0 mg/LInflammatio n: >10.0 mg/L [facility][QL] SED RATE BY MODIFIED [id number] 15:10:01 Test Item Value Reference Range Interpretation Comments Sedimentation Rate (test code = 17 {mm/hr} 0-20 36271-8) [facility][QLH] HEMOGLOBIN [id number] 15:10:01 Test Item Value Reference Range Interpretation Comments Hemoglobin A1c; Above High Threshold 5.7 % <=5.6 (test code = 4548-4) [facility][QL] WARREN PANEL, [id number] 15:10:01 Test Item Value Reference Range Interpretation Comments Antinuclear Antibody Negative Negative Because the WARREN was Screen (test code = Negative , the Reflex 40670-2) assays for Anti-dsDNA, SM/ SUPERVISOR [employer], Deb/La (SSA/S SB) were not perfor med. [facility]
[2022-06-28] MEDS ORDERED: Ringers Lactate 1,000 ML IV ONE ×2 (13:36→16:21)
[2022-06-28 14:08] LABS: Hematocrit 35.1 % (36.0-45.0); Lymphocytes % 11.2 % (15.3-44.8); MPV 7.8 fL (7.6-11.3); RBC Red Blood Cell Count 3.66 M/uL (3.86-4.86)
[2022-06-28 15:33] LABS: Albumin 3.9 g/dL (3.4-5.0); Bilirubin Total 2.6 mg/dL (0.2-1.0); Protein, Total 7.1 g/dL (6.4-8.2)
[2022-06-28 15:37] LABS: Potassium 4.5 mmol/L (3.5-5.1)
[2022-06-28] MEDS ORDERED: FAMOTIDINE 20 MG/2 ML VIAL IV ONE (16:21)
[2022-06-28] MEDS ORDERED: DIPHENHYDRAMINE 50 MG/ML VIAL ONE (16:21)
--- NOTE | 2022-06-28 18:05 | ER ---
Nurse's Notes [facility] Name: Emilia Lora Age: 42 yrs Sex: Female : 1980 Arrival Date: 06/28/2022 Time: 13:07 Bed 28 Private MD: Diagnosis: Dehydration Presentation: 06/28 13:24 Chief complaint: Patient states: Had gastric sleeve surgery last week. Noticed bruising ll1 to her upper abdomen has gotten worse the past couple days. Unable to drink her clear fluids since yesterday so she feels dehydrated. Upper chest pressure began yesterday. Reports palpitations, dry mouth, feeling thirsty, shaky, flank pain, urinary frequency with oliguria, and loose bowels. Coronavirus screen: Vaccine status: Patient reports receiving the 2nd dose of the covid vaccine. Client denies travel out of the [place] in the last 14 days. At this time, the client does not indicate any symptoms associated with coronavirus-19. Ebola Screen: Patient denies travel to an Ebola-affected area in the 21 days before illness onset. Initial Sepsis Screen: Does the patient meet any 2 criteria? HR > 90 bpm. No. Patient's initial sepsis screen is negative. Does the patient have a suspected source of infection? No. Patient's initial sepsis screen is negative. Risk Assessment: Do you want to hurt yourself or someone else? Patient reports no desire to harm self or others. Onset of symptoms was June 26, 2022. 13:24 Method Of Arrival: Ambulatory ll1 13:24 Acuity: VINITA 3 ll1 Triage Assessment: 13:29 General: Appears uncomfortable, Behavior is calm, cooperative, appropriate for age. ll1 Neuro: Reports weakness. Cardiovascular: Reports chest pain, palpitations. GI: Reports upper abdominal pain, diarrhea. : Reports urgency, urinary frequency. Derm: Reports bruising worse than usual. Historical: - Allergies: 13:22 Sulfa (Sulfonamide Antibiotics); ll1 13:22 Levofloxacin; ll1 13:22 Keflex; ll1 13:22 Cipro; ll1 13:22 CEPHALOSPORINS; ll1 13:22 Celebrex; ll1 13:22 Sulfasalazine; ll1 - PMHx: 13:22 DVT; hypermobility sydrome; PE; Rheumatoid Arthritis; rib cage cartlige swelling; Sleep ll1 Apnea; ulcerative colitis; - PSHx: 13:22 gastric sleeve; 2 ankle SX; R nephrectomy; septoplasty; Adenoid excision; ll1 Cholecystectomy; D\T\C; endometrial ablasion; - Immunization history:: Client reports receiving the 2nd dose of the Covid vaccine. - Social history:: Smoking status: Patient denies any tobacco usage or history of. Screenin:20 [facility] ED Fall Risk Assessment (Adult) History of falling in the last 3 months, em6 including since admission No falls in past 3 months (0 pts) Confusion or Disorientation No (0 pts) Intoxicated or Sedated No (0 pts) Impaired Gait No (0 pts) Mobility Assist Device Used No (0 pt) Altered Elimination No (0 pt) Score/Fall Risk Level 0 - 2 = Low Risk Oriented to surroundings, Maintained a safe environment, Educated pt \T\ family on fall prevention, incl call for assistance when getting out of bed, Assessed \T\ reinforced patient's understanding of fall precautions, Provided non-skid footwear, Hourly rounding (assess needs \T\ fall precautionary measures) done, Used ambulatory aids as needed (educated on \T\ assisted with), Used gait belt as appropriate. Abuse screen: Denies threats or abuse. Nutritional screening: No deficits noted. Tuberculosis screening: No symptoms or risk factors identified. Assessment: 13:28 General: Appears in no apparent distress. Behavior is cooperative. Pain: Complains of em6 pain in abdomen Pain does not radiate. Pain currently is 5 out of 10 on a pain scale. Quality of pain is described as pressure. Neuro: Level of Consciousness is awake, alert, obeys commands, Oriented to person, place, time, situation. Cardiovascular: Patient's skin is warm and dry. Respiratory: Airway is patent Respiratory effort is even, unlabored, Respiratory pattern is regular, symmetrical. GI: Abdomen is non-distended, bruising in the left upper and lower abdomen. patient had gastric sleeve surgery 9 days ago. Bowel sounds present X 4 quads. Abd is soft and non tender X 4 quads. : Reports inability to void. EENT: Reports patient reports dry mouth . Derm: Bruising that is dark purple, on left upper quadrant and left lower quadrant. Musculoskeletal: Circulation, motion, and sensation intact. Range of motion: intact in all extremities. 14:30 Reassessment: Patient appears in no apparent distress at this time. No changes from em6 previously documented assessment. Patient and/or family updated on plan of care and expected duration. Pain level reassessed. Patient is alert, oriented x 3, equal unlabored respirations, skin warm/dry/pink. 15:30 Reassessment: Patient appears in no apparent distress at this time. No changes from em6 previously documented assessment. Patient and/or family updated on plan of care and expected duration. Pain level reassessed. Patient is alert, oriented x 3, equal unlabored respirations, skin warm/dry/pink. 16:30 Reassessment: Patient appears in no apparent distress at this time. No changes from em6 previously documented assessment. Patient and/or family updated on plan of care and expected duration. Pain level reassessed. Patient is alert, oriented x 3, equal unlabored respirations, skin warm/dry/pink. 17:30 Reassessment: Patient appears in no apparent distress at this time. No changes from em6 previously documented assessment. Patient and/or family updated on plan of care and expected duration. Pain level reassessed. Patient is alert, oriented x 3, equal unlabored respirations, skin warm/dry/pink. Vital Signs: 13:24 BP 128 / 71; Pulse 97; Resp 16; Temp 98.2; Pulse Ox 99% on R/A; Weight 106.59 kg; ll1 Height 5 ft. 2 in. (157.48 cm); 14:27 BP 102 / 59; Pulse 78; Resp 16; Pulse Ox 100% ; em6 15:34 BP 108 / 61; Pulse 80; Resp 16; Pulse Ox 100% on R/A; em6 16:38 BP 116 / 67; Pulse 76; Resp 16; Pulse Ox 100% on R/A; em6 18:00 BP 100 / 64; Pulse 75; Resp 14; Pulse Ox 100% ; em6 13:24 Body Mass Index 42.98 (106.59 kg, 157.48 cm) ll1 ED Course: 13:07 Patient arrived in ED. mr 13:12 Luis Solares PA is PHCP. m 13:12 Chico Wheat DO is Attending Physician. [facility] 13:16 Rita Hoang, RN is Primary Nurse. em6 13:22 Arm band placed on Patient placed in an exam room, on a stretcher. ll1 13:29 Triage completed. ll1 13:30 Bed in low position. Call light in reach. Side rails up X 1. Pulse ox on. NIBP on. Warm em6 blanket given. 14:04 Inserted saline lock: 20 gauge in left antecubital area, using aseptic technique. Blood em6 collected. by KJ. 18:19 No provider procedures requiring assistance completed. IV discontinued, intact, em6 bleeding controlled, No redness/swelling at site. Pressure dressing applied. Administered Medications: 14:04 Drug: Lactated Ringers Solution 1000 ml Route: IV; Rate: 1000 bolus; Site: left em6 antecubital; 15:30 Follow up: Response: No adverse reaction; IV Status: Completed infusion; IV Intake: em6 1000ml 16:24 Drug: Lactated Ringers Solution 1000 ml Route: IV; Rate: 1000 bolus; Site: left em6 antecubital; 17:40 Follow up: Response: No adverse reaction; IV Status: Completed infusion; IV Intake: em6 1000ml 16:24 Drug: diphenhydrAMINE 12.5 mg Route: IVP; Site: left antecubital; em6 17:00 Follow up: Response: No adverse reaction em6 16:24 Drug: Pepcid (famotidine) 20 mg Route: IVP; Site: left antecubital; em6 17:00 Follow up: Response: No adverse reaction em6 Medication: 18:19 VIS not applicable for this client. em6 Intake: 15:30 IV: 1000ml; Total: 1000ml. em6 17:40 IV: 1000ml; Total: 2000ml. em6 Outcome: 18:05 Discharge ordered by MD. stevens 18:19 Discharged to home ambulatory. em6 18:19 Condition: stable 18:19 Discharge instructions given to patient, Instructed on discharge instructions, follow up and referral plans. medication usage, Demonstrated understanding of instructions, follow-up care, medications, Prescriptions given X 2. 18:19 Patient left the ED. em6 Signatures: Luis Solares PA PA jmm Rivera, Mary Nomi Lamb RN RN ll1 Rita Hoang RN RN em6 Corrections: (The following items were deleted from the chart) 13:20 13:20 Tuberculosis screening: No symptoms or risk factors identified. em6 em6 13:20 13:20 [facility] ED Fall Risk Assessment (Adult) History of falling in the last 3 months, em6 including since admission No falls in past 3 months (0 pts) Confusion or Disorientation No (0 pts) Intoxicated or Sedated No (0 pts) Impaired Gait No (0 pts) Mobility Assist Device Used No (0 pt) Altered Elimination No (0 pt) Score/Fall Risk Level 0 - 2 = Low Risk em6
--- NOTE | 2022-06-28 18:05 | EDPHYS ---
Physician Documentation [facility] Name: Emilia Lora Age: 42 yrs Sex: Female : 1980 Arrival Date: 06/28/2022 Time: 13:07 Bed 28 Private MD: ED Physician Chico Wheat HPI: 06/28 13:23 This 42 yrs old Female presents to ER via Ambulatory with complaints of jmm Dehydration. 13:23 Onset: The symptoms/episode began/occurred gradually, 9 day(s) ago. This is a jmm 42-year-old female with history of DVT, PE, RA the presents emerged department 9 days status post gastric sleeve which was performed at the [facility]. Patient states she had overexerted herself due to lack of family support. Patient presents with ecchymosis to her abdomen which patient states was evaluated by her surgeon whom said that this could be due to strenuous activity. Patient denies fever. Patient is concerned that she may be dehydrated due to decreased tolerance to take things by mouth. Patient states that she will get a burning sensation if she drinks more than a small amount of time.. Historical: - Allergies: 13:22 Sulfa (Sulfonamide Antibiotics); ll1 13:22 Levofloxacin; ll1 13:22 Keflex; ll1 13:22 Cipro; ll1 13:22 CEPHALOSPORINS; ll1 13:22 Celebrex; ll1 13:22 Sulfasalazine; ll1 - PMHx: 13:22 DVT; hypermobility sydrome; PE; Rheumatoid Arthritis; rib cage cartlige swelling; Sleep ll1 Apnea; ulcerative colitis; - PSHx: 13:22 gastric sleeve; 2 ankle SX; R nephrectomy; septoplasty; Adenoid excision; ll1 Cholecystectomy; D\T\C; endometrial ablasion; - Immunization history:: Client reports receiving the 2nd dose of the Covid vaccine. - Social history:: Smoking status: Patient denies any tobacco usage or history of. ROS: 13:23 Constitutional: Negative for fever, chills, and weight loss, Cardiovascular: Negative jm for chest pain, palpitations, and edema, Respiratory: Negative for shortness of breath, cough, wheezing, and pleuritic chest pain, Abdomen/GI: Negative for abdominal pain, nausea, vomiting, diarrhea, and constipation. 13:23 All other systems are negative. Exam: 13:23 Constitutional: This is a well developed, well nourished patient who is awake, alert, jmm and in no acute distress. Head/Face: atraumatic. Eyes: EOMI, no conjunctival erythema appreciated ENT: Moist Mucus Membranes Neck: Trachea midline, Supple Chest/axilla: Normal chest wall appearance and motion. Cardiovascular: Regular rate and rhythm. No edema appreciated Respiratory: Normal respirations, no respiratory distress appreciated 13:23 MS/ Extremity: Moves all extremities, no obvious deformities appreciated, no edema noted to the lower extremities Neuro: Awake and alert Psych: Behavior is normal, Mood is normal, Patient is cooperative and pleasant 13:23 Abdomen/GI: Ecchymosis noted to the left lower quadrant of the abdomen, incision sites appreciated there is no purulent drainage, no induration noted. Vital Signs: 13:24 BP 128 / 71; Pulse 97; Resp 16; Temp 98.2; Pulse Ox 99% on R/A; Weight 106.59 kg; ll1 Height 5 ft. 2 in. (157.48 cm); 14:27 BP 102 / 59; Pulse 78; Resp 16; Pulse Ox 100% ; em6 15:34 BP 108 / 61; Pulse 80; Resp 16; Pulse Ox 100% on R/A; em6 16:38 BP 116 / 67; Pulse 76; Resp 16; Pulse Ox 100% on R/A; em6 18:00 BP 100 / 64; Pulse 75; Resp 14; Pulse Ox 100% ; em6 13:24 Body Mass Index 42.98 (106.59 kg, 157.48 cm) ll1 MDM: 13:23 Patient medically screened. [facility] 18:04 Data reviewed: vital signs, nurses notes. Counseling: I had a detailed discussion with [facility] the patient and/or guardian regarding: the historical points, exam findings, and any diagnostic results supporting the discharge/admit diagnosis, the need for outpatient follow up, to return to the emergency department if symptoms worsen or persist or if there are any questions or concerns that arise at home. 06/28 13:29 Order name: CBC with Diff; Complete Time: 14:12 [facility] 06/28 13:29 Order name: CMP; Complete Time: 15:37 [facility] 06/28 13:29 Order name: Lipase; Complete Time: 15:37 [facility] 06/28 13:29 Order name: IV Saline Lock; Complete Time: 14:04 [facility] 06/28 13:29 Order name: Labs collected and sent; Complete Time: 14:04 [facility] 06/28 14:11 Order name: Labs - recollect needed: recollect green top; Complete Time: 14:56 bd Administered Medications: 14:04 Drug: Lactated Ringers Solution 1000 ml Route: IV; Rate: 1000 bolus; Site: left em6 antecubital; 15:30 Follow up: Response: No adverse reaction; IV Status: Completed infusion; IV Intake: em6 1000ml 16:24 Drug: Lactated Ringers Solution 1000 ml Route: IV; Rate: 1000 bolus; Site: left em6 antecubital; 17:40 Follow up: Response: No adverse reaction; IV Status: Completed infusion; IV Intake: em6 1000ml 16:24 Drug: diphenhydrAMINE 12.5 mg Route: IVP; Site: left antecubital; em6 17:00 Follow up: Response: No adverse reaction em6 16:24 Drug: Pepcid (famotidine) 20 mg Route: IVP; Site: left antecubital; em6 17:00 Follow up: Response: No adverse reaction em6 Disposition: 18:46 Co-signature as Attending Physician, Chico CAPELLAN was immediately available on-site ms3 in the Emergency Department for consultation in the care of the patient. Disposition Summary: 06/28/22 18:05 Discharge Ordered Location: Home [facility] Condition: Stable [facility] Diagnosis - Dehydration [facility] Followup: [facility] - With: Private Physician - When: 2 - 3 days - Reason: Recheck today's complaints, Continuance of care, Re-evaluation by your physician Discharge Instructions: - Discharge Summary Sheet [facility] - Dehydration, Adult [facility] - Bariatric Surgery Information [facility] Forms: - Medication Reconciliation Form [facility] - Thank You Letter [facility] - Antibiotic Education [facility] - Prescription Opioid Use [facility] Prescriptions: - mupirocin 2 % Topical ointment - apply 1 application by TOPICAL route 3 times per day; 1 tube; Refills: 0, [facility] Product Selection Permitted - Hydroxyzine HCl 25 mg Oral Tablet - take 1 tablet by ORAL route every 6 hours As needed; 30 tablet; Refills: 0, [facility] Product Selection Permitted Signatures: Dispatcher [facility] Zulay Wolf Joel, PA PA jmm Lewis, Lynsay, RN RN ll1 Chico Wheat DO DO ms3 Rita Hoang, RN RN em6
[2022-06-28 18:47] VITALS: TEMP 98.2
[2022-06-28 18:57] VITALS: O2SAT 100
[2022-06-28 19:05] VITALS: BP 100/64
== END 2022-06-28 18:19 | disposition home or self-care (01) ==
LOC: ER 13:04
DX: E86.0 Dehydration (principal); Z98.84 Bariatric surgery status; Z88.1 Allergy status to other antibiotic agents; Z88.2 Allergy status to sulfonamides; Z88.3 Allergy status to other anti-infective agents; Z88.8 Allergy status to other drugs, medicaments and biological substances
CPT/HCPCS: 96361; 85025; 36415; 83690; 80053; 96375; 96374; 99284; J1200; J7120 ×2

== ENCOUNTER 2022-07-21 00:24 | Emergency (ER) | payer OTHER ==
--- NOTE | 2022-07-21 00:39 | EDPHYS ---
Physician Documentation [facility] Name: Emilia Lora Age: 42 yrs Sex: Female : 1980 Arrival Date: 07/21/2022 Time: 00:28 Bed 12 Private MD: ED Physician Chico Wheat HPI: 07/21 00:39 This 42 yrs old Female presents to ER via Unassigned with complaints of ms3 Mid-Line Coming Out. 00:39 42-year-old female presents for left of midline pulling out. Patient states she was ms3 admitted to [facility] in the [facility] and was inadvertently discharged with a midline. Patient states she has an appointment next week to have her midline removed.. Historical: - Allergies: 00:44 Celebrex; aa9 00:44 CEPHALOSPORINS; aa9 00:44 Cipro; aa9 00:44 Keflex; aa9 00:44 Levofloxacin; aa9 00:44 Sulfa (Sulfonamide Antibiotics); aa9 00:44 Sulfasalazine; aa9 - Home Meds: 00:44 None [Active]; aa9 - PMHx: 00:44 DVT; hypermobility sydrome; PE; Rheumatoid Arthritis; rib cage cartlige swelling; Sleep aa9 Apnea; ulcerative colitis; - PSHx: 00:44 2 ankle SX; Adenoid excision; Cholecystectomy; D\T\C; Endometrial ablasion; gastric aa9 sleeve; R nephrectomy; septoplasty; - Immunization history:: Client reports receiving the 2nd dose of the Covid vaccine. - Social history:: Smoking status: Patient denies any tobacco usage or history of. ROS: 00:39 Constitutional: Negative for fever, and chills. Neck: Negative for injury, pain, and ms3 swelling, Cardiovascular: Negative for chest pain, and palpitations. Respiratory: Negative for shortness of breath, cough, wheezing, and pleuritic chest pain, Abdomen/GI: Negative for abdominal pain, nausea, vomiting, diarrhea, and constipation, MS/Extremity: Negative for injury and deformity. 00:39 Skin: Positive for midline left arm. 00:39 All other systems are negative. Exam: 00:39 Constitutional: This is a well developed, well nourished patient who is awake, alert, ms3 and in no acute distress. Head/Face: Normocephalic, atraumatic. Neck: Trachea midline, no cervical lymphadenopathy. Supple, full range of motion without nuchal rigidity, or vertebral point tenderness. No Meningismus. Chest/axilla: Normal chest wall appearance and motion. Nontender with no deformity. Cardiovascular: Regular rate and rhythm with a normal S1 and S2. No gallops, murmurs, or rubs. Normal PMI, no JVD. No pulse deficits. Respiratory: Lungs have equal breath sounds bilaterally, clear to auscultation and percussion. No rales, rhonchi or wheezes noted. No increased work of breathing, no retractions or nasal flaring. Back: No spinal tenderness. No costovertebral tenderness. Full range of motion. 00:39 Skin: midline in left arm. Vital Signs: 00:43 BP 136 / 68; Pulse 73; Resp 18 S; Temp 98.7(O); Pulse Ox 100% on R/A; Weight 102.97 kg aa9 (R); Height 5 ft. 9 in. (175.26 cm) (R); Pain 0/10; 00:43 Body Mass Index 33.52 (102.97 kg, 175.26 cm) aa9 MDM: 00:38 Patient medically screened. ms3 00:39 Differential Diagnosis. Data reviewed: vital signs, nurses notes, and as a result, I ms3 will discharge patient. Counseling: I had a detailed discussion with the patient and/or guardian regarding: the historical points, exam findings, and any diagnostic results supporting the discharge/admit diagnosis, the need for outpatient follow up, to return to the emergency department if symptoms worsen or persist or if there are any questions or concerns that arise at home. ED course: Midline removed from left arm without incident. Patient to follow-up with her primary care physician as scheduled. All questions were answered. Return precautions discussed include worsening symptoms, or any other concerns. Administered Medications: No medications were administered Disposition Summary: 07/21/22 00:38 Discharge Ordered Location: Home ms3 Condition: Stable ms3 Diagnosis - Problem with Midline IV ms3 Followup: ms3 - With: Private Physician - When: 2 - 3 days - Reason: Recheck today's complaints Discharge Instructions: - Discharge Summary Sheet ms3 - Midline Catheter ms3 Forms: - Medication Reconciliation Form ms3 - Thank You Letter ms3 - Antibiotic Education ms3 - Prescription Opioid Use ms3 Signatures: Chico Wheat, DO VALLE ms3 Shereen Mckinley, RN RN aa9
--- NOTE | 2022-07-21 00:47 | ER ---
Nurse's Notes [facility] Name: Emilia Lora Age: 42 yrs Sex: Female : 1980 Arrival Date: 07/21/2022 Time: 00:28 Bed 12 Private MD: Diagnosis: Problem with Midline IV Presentation: 07/21 00:43 Chief complaint: Patient states: I had a midline placed and I was discharge a week ago aa9 and none removed it, I don't know how to take care of it I accidently took it out a bit. Coronavirus screen: Vaccine status: Patient reports receiving the 2nd dose of the covid vaccine. Ebola Screen: No symptoms or risks identified at this time. Initial Sepsis Screen: Does the patient meet any 2 criteria? No. Patient's initial sepsis screen is negative. Does the patient have a suspected source of infection? No. Patient's initial sepsis screen is negative. Risk Assessment: Do you want to hurt yourself or someone else? Patient reports no desire to harm self or others. Onset of symptoms was July 21, 2022. 00:43 Method Of Arrival: Ambulatory aa9 00:43 Acuity: VINITA 4 aa9 Triage Assessment: 00:45 General: Appears in no apparent distress. comfortable, Behavior is calm, cooperative, aa9 appropriate for age. Pain: Denies pain. Neuro: No deficits noted. Cardiovascular: Patient's skin is warm and dry. Respiratory: Airway is patent Respiratory effort is even, unlabored. GI: No deficits noted. : No deficits noted. Historical: - Allergies: 00:44 Celebrex; aa9 00:44 CEPHALOSPORINS; aa9 00:44 Cipro; aa9 00:44 Keflex; aa9 00:44 Levofloxacin; aa9 00:44 Sulfa (Sulfonamide Antibiotics); aa9 00:44 Sulfasalazine; aa9 - Home Meds: 00:44 None [Active]; aa9 - PMHx: 00:44 DVT; hypermobility sydrome; PE; Rheumatoid Arthritis; rib cage cartlige swelling; Sleep aa9 Apnea; ulcerative colitis; - PSHx: 00:44 2 ankle SX; Adenoid excision; Cholecystectomy; D\T\C; Endometrial ablasion; gastric aa9 sleeve; R nephrectomy; septoplasty; - Immunization history:: Client reports receiving the 2nd dose of the Covid vaccine. - Social history:: Smoking status: Patient denies any tobacco usage or history of. Screenin:45 [facility] ED Fall Risk Assessment (Adult) History of falling in the last 3 months, aa9 including since admission No falls in past 3 months (0 pts) Confusion or Disorientation No (0 pts) Intoxicated or Sedated No (0 pts) Impaired Gait No (0 pts) Mobility Assist Device Used No (0 pt) Altered Elimination No (0 pt) Score/Fall Risk Level 0 - 2 = Low Risk. Abuse screen: Denies threats or abuse. Denies injuries from another. Nutritional screening: No deficits noted. Tuberculosis screening: No symptoms or risk factors identified. Vital Signs: 00:43 BP 136 / 68; Pulse 73; Resp 18 S; Temp 98.7(O); Pulse Ox 100% on R/A; Weight 102.97 kg aa9 (R); Height 5 ft. 9 in. (175.26 cm) (R); Pain 0/10; 00:43 Body Mass Index 33.52 (102.97 kg, 175.26 cm) aa9 ED Course: 00:28 Patient arrived in ED. ja2 00:28 Chico Wheat DO is Attending Physician. ms3 00:44 Triage completed. aa9 00:45 Arm band placed on. aa9 00:45 No provider procedures requiring assistance completed. Patient did not have IV access aa9 during this emergency room visit. 00:46 Patient has correct armband on for positive identification. aa9 Administered Medications: No medications were administered Medication: 00:46 VIS not applicable for this client. aa9 Outcome: 00:38 Discharge ordered by . ms3 00:45 Discharged to home ambulatory. aa9 00:45 Condition: stable 00:45 Discharge instructions given to patient, Instructed on discharge instructions, Demonstrated understanding of instructions, follow-up care. 00:46 Patient left the ED. aa9 Signatures: Chico Wheat DO DO ms3 Leela Xiao ja2 Shereen Mckinley, RN RN aa9
--- OUTSIDE RECORDS SUMMARY | 2022-07-21 00:57 | XMS REPORT | Continuity of Care Document ---
:1980 Author Organization [facility] t Address [address] [place] [address] Care Team Providers Name Role Phone Percy Hinojosa MD Primary Care Physician SYDNEY GONZALEZ Attending Clinician Unavailable ANDREA OBANDO Attending Clinician Unavailable DAVID GILMAN Attending Clinician Unavailable HECTOR STORM Attending Clinician Unavailable ELOISE DAMON Attending Clinician Unavailable ANGELES PASCAL Attending Clinician Unavailable DALTON COLLINS Attending Clinician Unavailable MARK SCHAEFFER Attending Clinician Unavailable Mulu Bledsoe Attending Clinician MULU HARE Attending Clinician Unavailable MARLENY HUMPHREYS Attending Clinician Unavailable Marleny Humphreys MD Attending Clinician Amanda Goldberg Attending Clinician ABRAHAM TRACEI Sang Attending Clinician Unavailable Arin West MD Attending Clinician [phone] Virtual, Surgeon Attending Clinician Unavailable ALLYSON JOLLY Attending Clinician Unavailable Allyson Jolly MD Attending Clinician ILIA PASCAL Attending Clinician Unavailable NATIVIDAD EDWARDS Attending Clinician Unavailable PARISH FAM Attending Clinician Unavailable Joseluis Morel MD Attending Clinician KERRY HORVATH Attending Clinician Unavailable Kerry Otero Attending Clinician THOMAS CORNEJO Attending Clinician Unavailable JHOANA QUIGLEY Attending Clinician Unavailable TORIE DONOHUE Attending Clinician Unavailable UNKNOWN, ATTENDING Attending Clinician Unavailable DEREK TIRADO Attending Clinician Unavailable DEREK TIRADO Attending Clinician Unavailable SYDNIE GALLEGOS Attending Clinician Unavailable PERCY HINOJOSA Attending Clinician Unavailable JOSE ANTONIO MEREDITH Attending Clinician UnavailJose Antonio Correa MD Attending Clinician [phone] Benjamin Sy MD Attending Clinician Ziyad Allen NP Attending Clinician LEELA DUNN Attending Clinician Unavailable DMITRI MCKEON Attending Clinician Unavailable Dmitri Mckeon MD Attending Clinician MITA JIMENEZ Attending Clinician Unavailable Sydnie Gallegos MD Attending Clinician Caleb JASMINE, Axel Mahajan Attending Clinician Unavailable Doctor Unassigned, [place] Attending Clinician Unavailable HAYLEY VAZQUEZ Attending Clinician Unavailable JOSE ANTONIO MEREDITH Attending Clinician Unavailable Gwyn Noe MD, [place] Attending Clinician JASS ORTIZ Attending Clinician Unavailable Ilia Pascal MD Attending Clinician ILIA PASCAL Attending Clinician Unavailable Willard Bueno MD Attending Clinician THIERNO CASTILLO Attending Clinician Unavailable EDMUND, MINGO H Attending Clinician Unavailable PABLO FERNANDEZ Attending Clinician Unavailable SAAD AMAYA Attending Clinician Unavailable Oj Lin MD Attending Clinician Percy Hinojosa MD Attending Clinician OJ LIN Attending Clinician Unavailable OJ LIN Attending Clinician Unavailable LYNDON DAVIS Attending Clinician Unavailable LEONORA SMITH Attending Clinician Unavailable Shelly Byrd RD Attending Clinician Marichuy SANDOVAL, Ricci Vides Attending Clinician [phone] DONNY FENG Attending Clinician Unavailable Allyson Mena MD Attending Clinician Yuli Robles MD Attending Clinician Donny Feng MD Attending Clinician PILI SPRINGER Attending Clinician Unavailable Pili Springer MD Attending Clinician [phone] Brandt Alvarado MD Attending Clinician SHELLY BYRD Attending Clinician Unavailable JOE BLANCA Attending Clinician Unavailable BRANDT ALVARADO Attending Clinician Unavailable ANEL CARR Attending Clinician Unavailable BRANDT EGAN Attending Clinician Unavailable NEREIDA YOUNG Attending Clinician Unavailable Leonora Smith MD Attending Clinician [phone] ABDOULAYE PIERCE Attending Clinician Unavailable Abdoulaye Pierce MD Attending Clinician RAS KINGSTON Attending Clinician Unavailable GERALDO BEGUM Attending Clinician Unavailable PABLO FERNANDEZ Attending Clinician Unavailable Pablo Fernandez MD Attending Clinician [phone] ABDOULAYE PIERCE Attending Clinician Unavailable Yann DESIGNER/WRITER, FUNERAL HOME ASSISTANT, Radha Wilson Attending Clinician Unavailable KAMERON MARIANO Attending Clinician Unavailable DAVID GILMAN Attending Clinician Unavailable MAKENZIE VARELA Attending Clinician Unavailable Makenzie Varela MD Attending Clinician KATHY COELLO Attending Clinician Unavailable NEREIDA PETTY Attending Clinician Unavailable ANTON JAFFE Attending Clinician Unavailable MARY CORTÉS Attending Clinician Unavailable BINDU EDWARD Attending Clinician UnavailENMANUEL Tobar Attending Clinician Unavailable SHERI MALDONADO Attending Clinician Unavailable BRANDT ALVARADO Attending Clinician Unavailable HECTOR STORM M.D. Attending Clinician Unavailable Kevin Campos DO Attending Clinician Shannan SANDOVAL, Bindu Abdi Attending Clinician [phone] Parish Fam MD Attending Clinician BRANDT SULLIVAN [...] Clinician Unavailable DAVID GILMAN Admitting Clinician Unavailable MARLENY HUMPHREYS Admitting Clinician Unavailable JOSE ANTONIO MEREDITH Admitting Clinician UnavailLEELA Rosales Admitting Clinician Unavailable OJ LIN Admitting Clinician Unavailable ILIA PASCAL Admitting Clinician Unavailable DONNY FENG Admitting Clinician Unavailable YULI ROBLES Admitting Clinician Unavailable BRIDGET AVALOS Admitting Clinician Unavailable BRANDT BILL Admitting Clinician Unavailable MEHREEN MARQUEZ Admitting Clinician Unavailable Payers Payer Name Policy Type Policy Number Effective Date Expiration Date S magda MEDICAID TCH STAR [id number] 2018 00:00:00 BCBS PPO POS EPO [id number] 2015 2017 CHOICE 00:00:00 00:00:00 [facility] [id number] 2018 HEALTH PLAN STAR 00:00:00 GENERIC PPO - [id number] GENERIC PAYOR [facility] [id number] 2018 [facility] 00:00:00 PLAN PPO/EPO - BCBS [id number] [facility] [id number] 2016 2016 [facility] 00:00:00 00:00:00 MEDICAID STAR - COMMUNITY [id number] [facility] [id number] 2019 CHOICE MEDICAID 00:00:00 Problems Condition Condition Condition Status Onset Resolution Last Treating Co mments Source Name Details Category Date Date Treatment Clinician Date Abdominal Abdominal Disease Active [facility] 00 [place] Postoperat Postoperat Disease Active [facility] luzmaria nausea luzmaria nausea 1-14 Jaskaran kes and and 00:00: Medical vomiting vomiting 00 Center Obesity Obesity Disease Active 2021-[address] [facility]28 [facility] [place] Right arm Right arm Disease Active [facility] weakness weakness 9-24 [facility] Weakness Weakness Disease [facility]21 [facility] upper upper 00:[facility]: Medical extremity extremity 00 Cent er POTS POTS Disease Active [facility] (postural (postural 8-16 [facility] orthostati orthostati 00:00: of c c 00 Medicin tachycardi tachycardi e a a syndrome) syndrome) Persistent Persistent Disease Active [facility] genital genital 7-19 College arousal arousal 00:00: of disorder disorder 00 Medici n e Essential Essential Disease Active [place] hypertensi hypertensi 6-05 Co llege on on 00:00: of 00 Medicin e Dysautonom Dysautonom Disease Active [facility] ia ia 6-05 College 00:00: of 00 Medicin e History of History of Disease Active [facility] DVT (deep DVT (deep 05 [facility] vein vein 00:00: of thrombosis thrombosis 00 Me dicin ) ) e Bipolar 2 Bipolar 2 Disease Active [place] [facility] disorder disorder 5-18 Colleg e 00:00: of 00 Medicin e Attention Attention Disease Active [place] deficit deficit 5-18 College hyperactiv hyperactiv 00:00: of ity ity 00 Medicin disorder disorder e (ADHD), (ADHD), predominan predominan tly tly inattentiv inattentiv e type e type RILEY RILEY Disease Active [facility] (obstructi (obstructi 516 Assessmen College ve sleep ve sleep 00:00: [...] y.Uses FFM, sometimes notices air leaks.DME company: [employer] nts an appointme nt with Dr. Muñoz for [...] for complianc e. Chronic Chronic Disease Active [facility] insomnia insomnia 5-16 Assessmen Col lege 00:00: t & Plan: of 00 Formattin Medicin g of this e note might be different from the original. Pending evaluatio n by Dr. Stuart i for CBT-I Morbid Morbid Disease Active [facility] obesity obesity 5-16 Assessmen Colle ge with [...] ry 1-10 College arthritis arthritis 00:00: of 00 Medicin e Ulcerative Ulcerative Disease Active 2020-06 [facility] colitis colitis 1-10 College 00:00: of 00 Medicin e Iron Iron Disease Active [facility] deficiency deficiency 1-13 Co llege 00:00: 00 Medicin e 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 9[facility]10 [facility] Acute Acute Disease Active [facility] pulmonary pulmonary 8-11 [facility] e[facility] embolism embolism 00:00: of 00 Medicin e Morbid Morbid Disease Active Univers obesity obesity 3-14 ity of 00:00: [address] Branch Rheumatoid Rheumatoid Disease Active U nadineers arthritis arthritis 3-11 ity of 00:00: [place] 00 Medical Branch Insomnia Insomnia Disease Active Unive rs 3-11 ity of 00:00: [place] [id number] Medical Branch Enteropath Enteropath Disease Active 2016-06 M ethodi ic ic 0-30 st arthritis arthritis 00:00: Hosp oli 00 l Neuropathy Neuropathy Disease Active 2016-06 [facility] ethodi 0-30 [facility] 00:00: Hospita 00 l RILEY RILEY Disease Active 2016-06 [facility] (obstructi (obstructi 009 st ve sleep ve sleep 00:00: Hospit a apnea) apnea) 00 l Asthma Asthma Disease Active 2016-06 [facility] dependent dependent 0 [facility] on inhaled on inhaled 00:00: Ho spita steroids steroids 00 l Chronic Chronic Disease Active [facility] obstructiv obstructiv 4 st e asthma e asthma 00:00: Hospit a with acute with acute 00 l exacerbati exacerbati on on Cough Cough Disease Active [facility] 00:00: Hospita 00 l Allergic Allergic Disease Active [facility] di rhinitis rhinitis 4 st due to due to 00:00: Hospita pollen pollen 00 l Inflammato Inflammato Disease Active M ethodi ry ry 3 st polyarthri polyarthri 00:00: Ho spita tis tis 00 l Fibromyalg Fibromyalg Disease Active M ethodi ia ia 3 st 00:00: Hospita 00 l Encounter Encounter Disease Active 2015-06 Met apolinar for for 2-15 st monitoring monitoring 00:00: Ho spita azathiopri azathiopri 00 l ne therapy ne therapy Vitamin D Vitamin D Disease Active 2015-06 Met apolinar insufficie insufficie 08 st ncy ncy 00:00: Hospita 00 l Myalgia Myalgia Disease Active 2015-[address] 00:00: Hospita 00 l Chronic Chronic Disease Active 2015-06 [facility] midline midline 1-08 st low back low back 00:00: Hospit a pain pain 00 l without without sciatica sciatica Ulcerative Ulcerative Disease Recurre 2015-06 [facility] colitis colitis nce 05 st with with 00:00: Hospita complicati complicati 00 l on on History of History of Disease Active 2015-06 M ethodi endometrio endometrio 06-28 st sis sis 00:00: Hospita 00 l IBS IBS Disease Active 2015-06 [facility] (irritable (irritable 06-28 st bowel bowel 00:00: Hospita syndrome) syndrome) 00 l Abdominal Abdominal Disease Active 2015-06 Met hodi pain pain 06-28 st 00:00: Hospita 00 l Weakness Weakness Disease Active 2015-06 Metho di 06-28 st 00:00: Hospita 00 l Anxiety Anxiety Disease Active 2015-06 [facility] 06-28 [facility] 00:00: Hospita 00 l Gastropare Gastropare Disease Recurre 2015-06 Methodi sis sis nce 0 st 00:00: Hospita 00 l Tendonitis Tendonitis Disease Recurre 2015-06 [facility] of elbow, of elbow, nce 0-06 st right right 00:00: Hospita 00 l Cervical Cervical Disease Recurre 2015-06 Meth daniela radiculopa radiculopa nce 0-06 st thy thy 00:00: Hospita 00 l Gastroesop Gastroesop Disease Recurre Methodi hageal hageal nce 8 st reflux reflux 00:00: Hospita disease disease 00 l without without esophagiti esophagiti s s Intractabl Intractabl Disease Active M ethodi e vomiting e vomiting 01-21 st with with 00:00: Hospita nausea nausea 00 l Sprain of Sprain of Disease Recurre Me thodi right right nce 712 st knee/leg knee/leg 00:00: Hospit a 00 l Encounter Encounter Disease Active Overview: Univers for for 12-15 Formattin ity of routine routine 00:00: g of this [place] gynecologi gynecologi 00 note Me dical tyler tyler might be Branch examinatio examinatio different n n from the original. ICD10 Diagnosis Term Acute Dialysis Nurse Utility Attention Attention Disease Active Overview: Univers deficit deficit 12-15 Formattin ity o f disorder disorder 00:00: g of this Tim as 00 note Medical might be Branch different from the original. ICD10 Diagnosis Term Acute Dialysis Nurse Utility Anxiety Anxiety Disease Active Univers -24 ity of 00:00: [place] 00 Medical Branch Depression Depression Disease Active U nivers 24 ity of 00:00: [place] 00 Medical Branch Asthma Asthma Disease Active Overview: Univer s 6-24 Formattin ity of 00:00: g of this note Medical might be Branch different from the original. ICD10 Diagnosis Term Acute Dialysis Nurse Utility Genital Genital Disease Active Univers warts warts 6-24 ity of 00:00: [place] 00 Medical Branch Endometrio Endometrio Disease Active U nivers sis sis 6-24 ity of 00:00: Medical Branch PCOS PCOS Disease Active Univers (polycysti (polycysti 624 it y of c ovarian c ovarian 00:[place]: [place] syndrome) syndrome) 00 [facility] Branch Acne Acne Disease Active Univers 6-24 ity of 00:00: Medical Branch Obesity Obesity Disease Active Overview: Univ ers 6 Formattin ity of 00:00: g of this note Medical might be Branch different from the original. ICD10 Diagnosis Term Acute Dialysis Nurse Utility Sprain of Sprain of Disease Active Uni vers metacarpop metacarpop 6-19 it y of halangeal halangeal 00:00[place] joint of joint of 00 Medica l thumb thumb Branch Blephariti Blephariti Disease Active 2011-06 U nivers s of both s of both 0-12 ity of eyes eyes 00:00: Medical Branch High High Disease Active Univers myopia, myopia, 907 ity of both eyes both eyes 00:00[place] Keratitis Keratitis Disease Active Uni vers secondary secondary 9-07 ity of to contact [place] contact 00:[place] lens lens 00 [place] Routine Routine Disease Active 2010-06 Overview: [facility] medical medical 2-21 Formattin ity o f exam exam 00:00: g of this note Medical might be Branch different from the original. Last Assessmen t & Plan: Stable exam except as above. Abnormal Abnormal Disease Active 2010-06 Overview: Un marko weight weight 1-21 Formattin ity of gain gain 00:00: g of this note Medical might be Branch different from the original. Last Assessmen t & Plan: Labs reviewed and appears normal. Reviewed with her. I have counseled the patient at length to modify lifestyle . Hirsutism Hirsutism Disease Active 2010-06 Uni vers 1-21 ity of 00:00: [place] 00 Medical Branch Irregular Irregular Disease Active 2010-06 Uni vers menstrual menstrual 07-14 ity of cycle cycle 00:00: [place] [facility] Other Other Disease Active 2010-06 Univers malaise malaise - ity of and and 00:00: [place] fatigue fatigue 00 Medical Branch Frequent Frequent Disease Active 2009-06 Unive rs UTI UTI 08-02 ity of 00:00: [place] 00 Medical Branch Headache(7 Headache(7 Disease Active 2009-06 Overview : Univers 84.0) 84.0) 08-02 Formattin ity of 00:00: g of this [place] 00 note Medical might be Branch different from the original. Last Assessmen t & Plan: Stable, suspect migraine type Headache(7 Headache(7 Disease Active 2009-06 Last [facility] 84.0) 84.0) 08-02 Assessmen College 00:00: t & Plan: of 00 Formattin Medicin g of this e note might be different from the original. Stable, suspect migraine type Depression Depression Disease Active 2009-06 [facility] B aylor 08-02 Assessmen College 00:00: t & Plan: of Formattin Medicin g of this e note might be different from the original. Stable but contribut ing to fatigue Anxiety Anxiety Disease Active 2009-06 [facility] 08-02 [place] 00:00: of 00 Medicin e History of [...] nerve pain nerve pain it y of [place] [facility] Allergies, Adverse Reactions, Alerts Allergy Allergy Status Severity Reaction(s) Onset Inactive Treating Comm ents Source Name Type Date Date Clinician CLINDAMY DRUG Active Rash 2021-06 Univers MARI INGREDI 0-11 ity of 00:00: [place] 00 Medical Branch Clindamy Propensi Active Rash 2021-06 Univer s mari ty to 0-11 ity of adverse 00:00: [place] reaction 00 Medical s Branch Morphine Drug Active Anxiety Sensitivi [facility] Allergy 14 ty only [facility] 00:[facility]: lasts a Medical 00 few min, Center tolerates well otherwise MORPHINE Allergy Active Low Anxiety [facility] HCL 9-14 [facility] 00:[facility] Medical 00 Center DULOXETI Allergy Active High Swelling [facility] 12[facility]13 [facility] Medical [facility] Center CLINDAMY Allergy Active Med Other [facility] MARI 12-13 [facility] 00:[facility]: Medical 00 Center CEPHALEX Allergy Active Low Itching [facility] IN 12-13 [facility] 00:00: Medical 00 Center NITROFUR Allergy Active Low Rash [facility] ANTOIN 12-13 [facility] MONOHYD/ 00:00: Medical M-CRYST 00 Center Clindamy Drug Active Other (See blisters [facility] mari Allergy Comments) 12-13 [facility] 00:[facility]: Medical 00 Center Duloxeti Drug Active Swelling Swelling [facility] ne Allergy 12-13 of tongue [facility] 00:[facility]: Medical 00 Center Cephalex Drug Active Itching, Tolerates [facility] in Allergy Rash 12-13 azithromy [facility] 00[facility]00: [facility], Medical 00 phospomyc Center in, rocephin Nitrofur Drug Active Rash [facility] antoin Allergy - [facility] Monohyd/ 00:00: Medical M-Cryst 00 Center NITROFUR DRUG Active Med Rash 2021- Univers ANTOIN INGREDI 5-16 ity of 00:00: [place] 00 Medical Branch Nitrofur Propensi Active Rash Univer s antoin ty to 11-06 ity of adverse 00:00: [place] reaction 00 Medical s Branch Nitrofur Propensi Active Rash [facility] antoin ty to 11-06 [place] Macrocry adverse 00:00: of stal reaction 00 Medicin s to e drug Sulfasal Propensi Active Swelling tounge [facility] or azine ty to 07-20 swelling [place] adverse 00:00: of reaction 00 Medicin s to e drug DOXYCYCL DRUG Active Diarrhea 2019- Univer s INE INGREDI 08-21 ity of 00:00: [place] 00 Medical Branch Doxycycl Propensi Active Diarrhea 2019- Univ ers ine ty to 08-21 ity of adverse 00:00: [place] reaction 00 Medical s Branch Ed Propensi Active 2019-06 [facility] A-Hist ty to 08-21 [place] Pse adverse 00:00: of reaction 00 Medicin s to e drug Doxycycl Propensi Active Diarrhea 2019-06 [facility] or ine ty to 08-21 [place] adverse 00:00: of reaction 00 Medicin s to e drug DOXYCYCL Allergy Active Med Diarrhea 2019- [facility]E [facility] Medical [facility] Center Doxycycl Drug Active Diarrhea 2019- [facility] ine Allergy -28 [facility] 00:[facility]: Medical 00 Center Cephalos Propensi Active 2019-06 [facility] porins ty to 07-12 [place] adverse 00:00: of reaction 00 Medicin s to e drug Ciproflo Propensi Active 2019-06 [facility] xacin ty to 07-12 [place] adverse 00:00: of reaction 00 Medicin s to e drug Sulfa Propensi Active 2019-06 [facility] Antibiot ty to 07-12 [place] ics adverse 00:00: of reaction 00 Medicin s to e drug AMOXICIL DRUG Active Diarrhea 2019-0 Univer s ALEXY INGREDI 03-02 ity of 00:00: [place] 00 Medical Branch Amoxicil Propensi Active Diarrhea And Univ ers alexy ty to 03-02 Augmentin ity of adverse 00:00: . Patient [place] reaction 00 TOLERATES Medic al s Penicilli Branch n without adverse rxnAnd Augmentin . Patient TOLERATES Penicilli n without adverse rxn Amoxicil Propensi Active Diarrhea And [facility] or alexy ty to 03-02 Augmentin College adverse 00:00: . Patient of reaction 00 TOLERATES Medic in s to Penicilli e drug n without adverse rxn Amoxicil Drug Active Diarrhea 2020-[address] [...] mide 00:00: Medical Antibiot 00 Center ics) SULFA Allergy Active Swelling 2020-0 [facility] (SULFONA [...] Other 2020-0 [facility] ACIN 03-02 00:00: 00 CELECOXI DRUG Active Swelling 2020-0 Univer s B INGREDI 2-27 ity of 00:00: [place] 00 Medical Branch Celecoxi Propensi Active Swelling 2020-0 Univ ers b ty to 2-27 ity of adverse 00:00: [place] reaction 00 Medical s Branch Celecoxi Propensi Active Swelling 2020-0 tongue [facility] or b ty to 227 College adverse 00:00: of reaction 00 Medicin s to e drug CIPROFLO DRUG Active Other-Cmnt 2020-0 Univ ers XACIN INGREDI 1-10 ity of 00:00: [place] 00 Medical Branch SULFA Drug Active Other-Cmnt 2020-0 Univer s (SULFONA Class 1-10 ity of MIDE 00:00: [place] ANTIBIOT 00 Medical ICS) Branch Sulfa Propensi Active Other - See Tongue Uni vers (Sulfona ty to comments 1-10 swelling ity of mide adverse 00:00: [place] Antibiot reaction 00 Medica l ics) s Branch Ciproflo Propensi Active Other - See Tachycar d Univers xacin ty to comments [...] Itching Skin Metho di T[facility] ty to 01-[address] icones adverse 00:00: Hospita reaction 00 l s to drug Ciproflo Propensi Active Tachycard Met hodi xacin ty to 01-[address] adverse 00:00: Hospita reaction 00 l s to drug Levoflox Propensi Active Palpitations Tachyca rd Methodi acin ty to 01-[address] adverse 00:00: Hospita reaction 00 l s to drug TAPENTAD DRUG Active ITCHING Univers OL INGREDI 01-14 ity of 00:00: [place] 00 Medical Branch Tapentad Propensi Active Itching Skin Unive rs ol ty to 01-14 turns ity of adverse 00:00: redSkin [place] reaction 00 turns red Medic al s Branch Tapentad Propensi Active Itching Skin [facility] ol ty to 01-14 turns red College adverse 00:00: of reaction 00 Medicin s to e drug Tapentad Propensi Active Itching Skin Metho di ol ty to 7-[address] adverse 00:00: Hospita reaction 00 l s to drug ADHESIVE Drug Active ITCHING Univers Class 6-24 ity of 00:00: [place] 00 Medical Branch CEPHALEX DRUG Active ITCHING Univers IN INGREDI 6-24 ity of 00:00: [place] [facility] LEVOFLOX DRUG Active Palpitations Un marko ACIN INGREDI 6-24 ity of 00:00: [place] [facility] Adhesive Propensi Active Itching Skin Unive rs ty to 624 turns red ity of adverse 00:00: [place] reaction Medical s Branch Adhesive Propensi Active Itching Skin Unive rs ty to 6-24 turns red ity of adverse 00:00: [place] reaction Medical s Branch Cephalex Drug Active Itching Univers in Intolera 6-24 ity of nce 00:00: [place] 00 Medical Branch Levoflox Propensi Active Palpitations Univers acin ty to 624 ity of adverse 00:00: [place] reaction Medical s Branch Levoflox Propensi Active Swelling Throat [facility] or acin ty to 4-20 and rapid [place] adverse 00:00: heart of reaction 00 rateTachy Medic in s to cardiaTac e drug hycardiat achycardi a Levaquin Propensi Active Palpitations 2010-06 [facility] ty to 2-19 [place] adverse 00:00: of reaction 00 Medicin s to e drug DULOXETI DRUG Active High Swelling 2010-06 Univer s NE INGREDI 07-14 ity of 00:00: [place] [facility] Duloxeti Propensi Active Swelling 2010-06 Serotonin U nivers ne ty to 07-14 syndromeS ity of adverse 00:00: erotonin [place] reaction 00 syndromeS Medic al s welling Branch of tongue Duloxeti Propensi Active 2010-06 Serotonin [place] [facility] ty to 07-14 syndrome [place] adverse 00:00: of reaction 00 Medicin s to e drug Duloxeti Propensi Active 2010-06 Serotonin Met hodi ne Hcl ty to 07-[address] adverse 00:00: Hospita reaction 00 l s to drug Adhesive Propensi Active Blister 2009-06 [facility] Tape ty to 1-30 [place] adverse 00:00: of reaction 00 Medicin s to e substanc e Metformi Propensi Active 2009-06 Lactic Mikal n Hcl ty to 07-23 acidosis College adverse 00:00: of reaction 00 Medicin s to e drug Nsaids Propensi Active Swelling 2009-06 Face and [facility] or ty to 07-23 tongueCel [place] adverse 00:00: ebrex of reaction 00 Medicin s to e drug Keflex Propensi Active Itching 2009-06 [facility] ty to 07-23 College adverse 00:00: of reaction 00 Medicin s to e drug Adhesive Drug Active Hives 2009-[address] [facility] Tape Allergy 07-23 [facility] Center NSAIDS Allergy Active Swelling 2009-06 [facility] (NON-REMIGIO 07-23 ROIDAL 00:00: ANTI-INF 00 LAMMATOR Y DRUG) ADHESIVE Allergy Active Hives 2009-06 [facility] TAPE 07-23 00:00: 00 NO KNOWN Allergy Active [facility] Ciproflo Allergy Active [place] xacin to drug [...] [facility] brother Depression [facility] Natural brother Irritable bowel Meth odist syndrome [facility] Natural brother Learning disabilities [facility] Natural brother Mental illness [facility] Natural father Alcohol abuse [facility] Natural father [facility] Natural father Hypertension [facility] Maternal Diabetes [facility] Maternal Heart disease [facility] Maternal Hypertension [facility] Maternal Parks's esophagus Metho dist [facility]D [facility] Maternal Liver cancer [facility] Maternal Ulcerative colitis Method ist [facility] Natural mother Arthritis [facility] Natural mother Vision loss [facility] Natural mother Arthritis [facility] Natural mother Hypothyroidism [facility] Natural sister Alcohol abuse [facility] Natural sister Depression [facility] Natural sister Irritable bowel Metho [facility] Natural sister Learning disabilities [facility] Natural sister Mental illness [facility] Social History Social Habit Start Date Stop Date Quantity Comments Source History of Passive smoker [facility] lege of tobacco use Medicine History SDMN [facility] Alcohol Frequency Medical Center History SDOH [facility] Alcohol Std Medical Cente r Drinks History SDMN [facility] Alcohol Binge Medical Maggy ter Exposure to 2022-07-09 2022-07-19 Not sure University of SARS-CoV-2 00:00:00 10:05:00 [facility] (event) Branch Alcohol intake 2022-07-06 2022-07-06 [facility]er [facility]00 of alcohol [facility] Center (finding) History [facility] 2021-11-19 2021-11-19 0 [facility] of Physical Activity 00:00:00 00:00:00 Medicin e DPW History [facility] 2021-11-19 2021-11-19 0 [facility] of Physical Activity 00:00:00 00:00:00 Medicin e MPS Tobacco Comment 2021-11-14 2021-11-14 None [facility] llege of 00:00:00 00:00:00 Medicine Cigarette 2021-11-14 2021-11-14 [employer] of pack-years 00:00:00 00:00:00 Medicine Tobacco use and 2020-03-02 2020-03-[address] [facility] exposure 00:00:00 00:00:00 Medical Center History SDMN 2020-03-02 2020-03-[address] [facility] Alcohol Comment 00:00:00 00:00:00 Medical C enter Sex Ass[birth year] At [birth year] [facility] 00:00:00 00:00:00 Smoking Status Start Date Stop Date Source Ex-smoker 2021-11-14 00:00:00 2021-11-14 00:00:00 [facility] of Medicine Never smoker [facility] Center Medications Ordered Filled Start Stop Current Ordering Indication Dosage Frequency Signature Comments Components Source Medication Medication Date Date Medication? Clinician (SIG) Name Name lamoTRIgine 2022-0 3- No 300mg QD Take [address] (LaMICtal 1-22 01-22 mg by Lukes XR) 300 mg 21:29: 00:00 mouth Medic al TR24 21 :00 nightly . Center albuterol 0 Yes 1{puff} Inhale [address] HFA 1-22 puff by Lukes (VENTOLIN 15:03: mouth via Med ical HFA) 90 24 inhaler Center mcg/actuati every 6 on inhaler (six) hours as needed for Wheezing. traZODone 0 Yes 100mg QD Take [address] (DESYREL) 1-22 mg by [facility] 100 MG 15:03: mouth Medical tablet 24 nightly . Center mesalamine 0 Yes 2400mg Q.5D Take 2,[address] (LIALDA) 1-22 mg by Lukes 1.2 gram EC 15:03: mouth 2 Med ical tablet 24 (two) Center times daily Ulcerative colitis. gabapentin 0 Yes 800mg Q.[id number] Take [address] (NEURONTIN) 1-22 [id number] mg by L ukes 800 MG 15:03: 3D mouth 3 Medical tablet 24 (three) Center times daily. meclizine 0 Yes 25mg Take [address] (ANTIVERT) 1-22 by mouth 3 Ady es 25 MG 15:03: (three) Medical tablet 24 times Center daily as needed. cetirizine 0 Yes 10mg QD Take [address] (ZyrTEC) 10 -22 by mouth Luke s MG tablet 15:03: daily. Medica l 24 Center fluticasone 0 Yes 1{puff} Q.5D Inhale [address] propion-louis 1-22 puff by Lukes meteroL 15:03: mouth via Medic al (ADVAIR) 24 inhaler 2 Center 500-50 (two) mcg/dose times diskus daily. inhaler hydrOXYzine 0 Yes 25mg Take [address] (ATARAX) 25 1-22 by mouth 3 [facility] k[facility] MG tablet 15:03: (three) Medic al 24 times Center daily as needed for Itching. cholecalcif Yes 400U QD Take [address] zheng 1-22 Units by Lukes (VITAMIN 15:03: mouth Medical D3) 10 mcg 24 daily. Center (400 unit) Tab tablet fluconazole Yes 150mg Take [address] (DIFLUCAN) 1-22 mg by Lukes 150 MG 15:03: mouth Medical tablet 24 once. Center dextroamphe Yes Take by [facility] tamine-amph 1-22 mouth. Lukes etamine 15:03: Medical (AdderalL) 24 Center 15 mg Tab baclofen Yes 10mg Q.[id number] Take [address] (LIORESAL) 1-22 [id number] by mouth 3 Lukes 10 MG 15:03: 3D (three) Medical tablet 24 times Center daily arthralgia . lamoTRIgine Yes 300mg QD Take [address] (LaMICtal 1-22 mg by Lukes XR) 300 mg 00:00: mouth Medica l TR24 00 nightly. [place] albuterol 2021-06 Yes 1{puff} Inhale [address] HFA 2-29 puff by Lukes (VENTOLIN 15:02: mouth via Med ical HFA) 90 20 inhaler Center mcg/actuati every 6 on inhaler (six) hours as needed for Wheezing. traZODone 2021-06 Yes 100mg QD Take [address] (DESYREL) 2-29 mg by Lukes 100 MG 15:02: mouth Medical tablet 20 nightly . [place] mesalamine 2021-06 Yes 2400mg Q.5D Take 2,[address] (LIALDA) 2-29 mg by Lukes 1.2 gram EC 15:02: mouth 2 Med ical tablet 20 (two) Center times daily Ulcerative colitis. gabapentin 2021-06 Yes 800mg Q.[id number] Take [address] (NEURONTIN) 2-29 [id number] mg by L ukes 800 MG 15:02: [...] mouth Medica l TR24 20 nightly . [place] hydrOXYzine 2021-06 Yes 25mg Take [address] (ATARAX) 25 2-29 by mouth 3 [facility] kes MG tablet 15:02: (three) Medic al 20 times Center daily as needed for Itching. cholecalcif 2021-06 Yes 400U QD Take [address] zheng 2-29 Units by Lukes (VITAMIN 15:02: mouth Medical D3) 10 mcg 20 daily. Center (400 unit) Tab tablet fluconazole 2021-06 Yes 150mg Take [address] (DIFLUCAN) 2-29 mg by Lukes 150 MG 15:02: mouth Medical tablet 20 once. [place] dextroamphe 2021-06 Yes Take by [facility] tamine-amph 2-29 mouth. Lukes etamine 15:02: Medical (AdderalL) 20 Center 15 mg Tab baclofen 2021-06 Yes 10mg Q.[id number] Take [address] (LIORESAL) 2-29 [id number] by mouth 3 Lukes 10 MG 15:02: 3D (three) Medical tablet 20 times Center daily arthralgia . albuterol 2021-06 Yes 1{puff} Inhale [address] HFA 2-29 puff by Lukes (VENTOLIN 15:02: mouth via Med ical HFA) 90 20 inhaler Center mcg/actuati every 6 on inhaler (six) hours as needed for Wheezing. traZODone 2021-06 Yes 100mg QD Take [address] (DESYREL) 2-29 mg by Lukes 100 MG 15:02: mouth Medical tablet 20 nightly . [place] mesalamine 2021-06 Yes 2400mg Q.5D Take 2,[address] (LIALDA) 2-29 mg by Lukes 1.2 gram EC 15:02: mouth 2 Med ical tablet 20 (two) Center times daily Ulcerative colitis. gabapentin 2021-06 Yes 800mg Q.[id number] Take [address] (NEURONTIN) 2-29 [id number] mg by L ukes 800 MG 15:02: [...] mouth Medica l TR24 20 nightly . Center hydrOXYzine 2021-06 Yes 25mg Take [address] (ATARAX) 25 2-29 by mouth 3 [facility] kes MG tablet 15:02: (three) Medic al 20 times Center daily as needed for Itching. cholecalcif 2021-06 Yes 400U QD Take [address] zheng 2-29 Units by Lukes (VITAMIN 15:02: mouth Medical D3) 10 mcg 20 daily. Center (400 unit) Tab tablet fluconazole 2021-06 Yes 150mg Take [address] (DIFLUCAN) 2-29 mg by Lukes 150 MG 15:02: mouth Medical tablet 20 once. Center dextroamphe 2021-06 Yes Take by [facility] tamine-amph 2-29 mouth. Lukes etamine 15:02: Medical (AdderalL) 20 Center 15 mg Tab baclofen 2021-06 Yes 10mg Q.[id number] Take [address] (LIORESAL) 2-29 [id number] by mouth 3 Lukes 10 MG 15:02: 3D (three) Medical tablet 20 times Center daily arthralgia . ondansetron 2021-06- No 4mg Take [address] [facility] (ZOFRAN-ODT 2-27 12-30 tablet (4 [facility]askaran kes ) 4 MG 00:00: 23:59 mg total) Medic al disintegrat 00 :00 by mouth Cent er ing tablet every 8 (eight) hours as needed for Nausea for up to 3 days. ondansetron 2021-06 No 4mg Take [address] (ZOFRAN-ODT 2-27 12-30 tablet (4 Jaskaran kes ) 4 MG 00:00: 23:59 mg total) Medic al disintegrat 00 :00 by mouth Cent er ing tablet every 8 (eight) hours as needed for Nausea for up to 3 days. ondansetron 2021-06 No 4mg Take [address] [facility] (ZOFRAN-ODT 2-27 12-30 tablet (4 Jaskaran kes ) 4 MG 00:00: 23:59 mg total) Medic al disintegrat 00 :00 by mouth Cent er ing tablet every 8 (eight) hours as needed for Nausea for up to 3 days. gabapentin 2021-06 Yes [id number] 100mg Take 1 [facility] 100 mg 2-19 capsule by ity of capsule 00:00: mouth in [address] and 1 capsule at noon and 1 capsule in the evening. gabapentin 2021-06 Yes [id number] 100mg Take 1 [facility] 100 mg 2-19 capsule by ity of capsule 00:00: mouth in [address] and 1 capsule at noon and 1 capsule in the evening. gabapentin 2021-06 Yes [id number] 100mg Take 1 [facility] 100 mg 2-19 capsule by ity of capsule 00:00: mouth in [address] and 1 capsule at noon and 1 capsule in the evening. gabapentin 2021-06 Yes [id number] 100mg Take 1 [facility] 100 mg 2-19 capsule by ity of capsule 00:00: mouth in [address] and 1 capsule at noon and 1 capsule in the evening. gabapentin 2021- Yes [id number] 100mg Take 1 [facility] 100 mg 2-19 capsule by ity of capsule 00:00: mouth in [address] morning [place] and 1 capsule at noon and 1 capsule in the evening. gabapentin 202- Yes [id number] 100mg Take 1 [facility] 100 mg 2-19 capsule by ity of capsule 00:00: mouth in [address] and 1 capsule at noon and 1 capsule in the evening. gabapentin 2021- Yes [id number] 100mg Take 1 [facility] 100 mg 2-19 capsule by ity of capsule 00:00: mouth in [address] and 1 capsule at noon and 1 capsule in the evening. gabapentin 2021- Yes [id number] 100mg Take 1 [facility] 100 mg 2-19 capsule by ity of capsule 00:00: mouth in [address] and 1 capsule at noon and 1 capsule in the evening. gabapentin 2021- Yes [id number] 100mg Take 1 [facility] 100 mg 2-19 capsule by ity of capsule 00:00: mouth in [address] and 1 capsule at noon and 1 capsule in the evening. gabapentin 2021- Yes [id number] 100mg Take 1 [facility] 100 mg 2-19 capsule by ity of capsule 00:00: mouth in [address] and 1 capsule at noon and 1 capsule in the evening. gabapentin 2021- Yes [id number] 100mg Take 1 [facility] 100 mg 2-19 capsule by ity of capsule 00:00: mouth in [address] and 1 capsule at noon and 1 capsule in the evening. gabapentin 2021- Yes [id number] 100mg Take 1 [facility] 100 mg 2-19 capsule by ity of capsule 00:00: mouth in [address] and 1 capsule at noon and 1 capsule in the evening. gabapentin 202-1 Yes [id number] 100mg Take 1 [facility] 100 mg 2-19 capsule by ity of capsule 00:00: mouth in [address] and 1 capsule at noon and 1 capsule in the evening. gabapentin 2021- Yes [id number] 100mg Take 1 [facility] 100 mg 2-19 capsule by ity of capsule 00:00: mouth in [place] 00 the Medical morning Branch and 1 capsule at noon and 1 capsule in the evening. gabapentin 2021-06 Yes [id number] 100mg Take 1 [facility] 100 mg 2-19 capsule by ity of capsule 00:00: mouth in [place] [address] the Medical morning Branch and 1 capsule at noon and 1 capsule in the evening. gabapentin 2021-06 Yes [id number] 100mg Take 1 [facility] 100 mg 2-19 capsule by ity of capsule 00:00: mouth in [place] [address] the Medical morning Branch and 1 capsule at noon and 1 capsule in the evening. gabapentin 2021-06 Yes [id number] 100mg Take 1 [facility] 100 mg 2-19 capsule by ity of capsule 00:00: mouth in [place] [address] the Medical morning Branch and 1 capsule at noon and 1 capsule in the evening. gabapentin 2021-06 Yes [id number] 100mg Take 1 [facility] 100 mg 2-19 capsule by ity of capsule 00:00: mouth in [place] [address] the Medical morning [place] and 1 capsule at noon and 1 capsule in the evening. gabapentin 2021-06 Yes [id number] 100mg Take 1 [facility] 100 mg 2-19 capsule by ity of capsule 00:00: mouth in [place] [address] the [facility] morning [place] and 1 capsule at noon and 1 capsule in the evening. fluticasone 2021-06 Yes 1{puff} Inhale 1 [facility] -salmeterol 1-07 Puff by [employer] (ADVAIR) 09:18: mouth of 500-50 41 every 12 Medicin MCG/DOSE hours. e inhaler Cholecalcif 2021-06 Yes 400U Take 400 [facility] 1-07 Units by [place] (VITAMIN 09:18: mouth. of D-3) 10 MCG 41 Medicin (400 UNIT) e TABS Ascorbic 2021-06 Yes 3000mg Take 3,000 [facility] Acid 1000 1-07 mg by [place] MG TABS 09:18: mouth. of 41 Medicin e hydrocortis 2021-[address] 100 [facility] one 1-04 mg [place] (CORTENEMA) 00:00: rectally of 100 MG/60ML 00 at Medicin enema bedtime. e fluticasone 2021-06 Yes 1{puff} Inhale 1 [facility] -salmeterol 0-27 Puff by [employer] (ADVAIR) 11:47: mouth of 500-50 42 every 12 Medicin MCG/DOSE hours. e inhaler Cholecalcif 2021-06 Yes 400U Take 400 [facility] 0-27 Units by [facility] (VITAMIN 11:47: mouth. of D-3) 10 MCG 42 Medicin (400 UNIT) e TABS Ascorbic 2021-06 Yes 3000mg Take 3,000 [facility] Acid 1000 0-27 mg by [facility] MG TABS 11:47: mouth. of 42 Medicin e amphetamine 2021-06 Yes [id number] 1{tbl} Take 1 [facility] -dextroamph 0-21 Tablet by Col lege etamine 00:00: mouth of (ADDERALL, 00 daily. In Medi mari 15MG,) 15 the e MG tablet morning amphetamine 2021-06 Yes [id number] 1{tbl} Take 1 [facility] -dextroamph 0-21 Tablet by Col lege etamine 00:00: mouth of (ADDERALL, 00 daily. In Medi mari 15MG,) 15 the e MG tablet morning cephALEXin 2021-06 Yes [facility] (KEFLEX) 0-18 [place] 500 MG 00:00: of capsule 00 Medicin e cephALEXin 2021-06 Yes [facility] (KEFLEX) 0-18 [place] 500 MG 00:00: of capsule 00 Medicin e fluticasone 2021-06 Yes 1{puff} Inhale 1 [facility] -salmeterol 0-17 Puff by [employer] (ADVAIR) 09:43: mouth of 500-50 15 every 12 Medicin MCG/DOSE hours. e inhaler Cholecalcif 2021-06 Yes 400U Take 400 [facility] 0-17 Units by [facility] (VITAMIN 09:43: mouth. of D-3) 10 MCG 15 Medicin (400 UNIT) e TABS fluticasone 2021-06 Yes 1{puff} Inhale 1 [facility] -salmeterol 0-17 Puff by [employer] (ADVAIR) 09:43: mouth of 500-50 15 every 12 Medicin MCG/DOSE hours. e inhaler Cholecalcif 2021-06 Yes 400U Take 400 [facility] 0-17 Units by [facility] (VITAMIN 09:43: mouth. of D-3) 10 MCG 15 Medicin (400 UNIT) e TABS Ascorbic 2021-06 Yes 3000mg Take 3,000 [facility] Acid 1000 0-17 mg by [facility] MG TABS 09:43: mouth. of 15 Medicin e baclofen 2021-06 Yes [id number] TAKE ONE [facility] (LIORESAL) 0-14 TABLET BY [facility] ege 10 MG 00:00: MOUTH of tablet 00 THREE Medicin TIMES A e DAY NEEDED FOR PAIN baclofen 2021-06 Yes [id number] TAKE ONE [facility] (LIORESAL) 0-14 TABLET BY [facility] ege 10 MG 00:00: MOUTH of tablet 00 THREE Medicin TIMES A e DAY NEEDED FOR PAIN baclofen 2021-06 Yes [id number] TAKE ONE [facility] (LIORESAL) 0-14 TABLET BY [facility]o ege 10 MG 00:00: MOUTH of tablet 00 THREE Medicin TIMES A e DAY NEEDED FOR PAIN hydrocodone 2021-06 Yes [id number] 1{tbl} Take 1 [facility] -acetaminop 0-13 Tablet by Col lege hen (NORCO) 00:00: mouth of 5-325 mg 00 every 4 Medicin tablet hours as e needed for Pain. amphetamine 2021-06 Yes [id number] 1{tbl} Take 1 [facility] -dextroamph 0-13 Tablet by Col lege etamine 00:00: mouth of (ADDERALL, 00 daily. Medicin 5MG,) 5 MG Take in e tablet afternoon amphetamine 2021-06 Yes [id number] 1{tbl} Take 1 [facility] -dextroamph 0-13 Tablet by Col lege etamine 00:00: mouth of (ADDERALL, 00 daily. In Medi mari 15MG,) 15 the e MG tablet morning hydrocodone 2021-06 Yes [id number] 1{tbl} Take 1 [facility] -acetaminop 0-13 Tablet by Col [facility] hen (NORCO) 00:00: mouth of 5-325 mg 00 every 4 Medicin tablet hours as e needed for Pain. amphetamine 2021-06 Yes [id number] 1{tbl} Take 1 [facility] -dextroamph 0-13 Tablet by Col lege etamine 00:00: mouth of (ADDERALL, 00 daily. Medicin 5MG,) 5 MG Take in e tablet afternoon amphetamine 2021-06 Yes [id number] 1{tbl} Take 1 [facility] -dextroamph 0-13 Tablet by Col lege etamine 00:00: mouth of (ADDERALL, 00 daily. In Medi mari 15MG,) 15 the e MG tablet morning fluconazole 2021-06 Yes 150mg Take 150 [facility] (DIFLUCAN) 0-13 mg by [place] 150 MG 00:00: mouth of tablet 00 daily. Medicin e hydrocodone 2021-06 Yes [id number] 1{tbl} Take 1 [facility] -acetaminop 0-13 Tablet by Col lege hen (NORCO) 00:00: mouth of 5-325 mg 00 every 4 Medicin tablet hours as e needed for Pain. amphetamine 2021-06 Yes [id number] 1{tbl} Take 1 [facility] -dextroamph 0-13 Tablet by Col lege etamine 00:00: mouth of (ADDERALL, 00 daily. Medicin 5MG,) 5 MG Take in e tablet afternoon fluconazole 2021-06 Yes 150mg Take 150 [facility] (DIFLUCAN) 0-13 mg by [place] 150 MG 00:00: mouth of tablet 00 daily. Medicin e hydrocodone 2021-06 Yes [id number] 1{tbl} Take 1 [facility] -acetaminop 0-13 Tablet by Col lege hen (NORCO) 00:00: mouth of 5-325 mg 00 every 4 Medicin tablet hours as e needed for Pain. amphetamine 2021-06 Yes [id number] 1{tbl} Take 1 [facility] -dextroamph 0-13 Tablet by Col lege etamine 00:00: mouth of (ADDERALL, 00 daily. Medicin 5MG,) 5 MG Take in e tablet afternoon fluconazole 2021-06 Yes 150mg Take 150 [facility] (DIFLUCAN) 0-13 mg by [place] 150 MG 00:00: mouth of tablet 00 daily. Medicin e midodrine 2021-06 Yes 2.5mg Take 2.5 Uni vers 2.5 mg 0-11 mg by ity of tablet 14:05: mouth. [address] midodrine 2021-06 Yes 2.5mg Take 2.5 Uni vers 2.5 mg 0-11 mg by ity of tablet 14:05: mouth. [address] midodrine 2021-06 Yes 2.5mg Take 2.5 Uni vers 2.5 mg 0-11 mg by ity of tablet 14:05: mouth. [address] 2021-06 Yes 2.5mg Take 2.5 Uni vers 2.5 mg 0-11 mg by ity of tablet 14:05: mouth. [address] 2021-06 Yes 2.5mg Take 2.5 Uni vers 2.5 mg 0-11 mg by ity of tablet 14:05: mouth. [address] 2021-06 Yes 2.5mg Take 2.5 Uni vers 2.5 mg 0-11 mg by ity of tablet 14:05: mouth. [address] 2021-06 Yes 2.5mg Take 2.5 Uni vers 2.5 mg 0-11 mg by ity of tablet 14:05: mouth. [address] 2021-06 Yes 2.5mg Take 2.5 Uni vers 2.5 mg 0-11 mg by ity of tablet 14:05: mouth. [address] 2021-06 Yes 2.5mg Take 2.5 Uni vers 2.5 mg 0-11 mg by ity of tablet 14:05: mouth. [address] 2021-06 Yes 2.5mg Take 2.5 Uni vers 2.5 mg 0-11 mg by ity of tablet 14:05: mouth. [address] 2021-06 Yes 2.5mg Take 2.5 Uni vers 2.5 mg 0-11 mg by ity of tablet 14:05: mouth. [address] 2021-06 Yes 2.5mg Take 2.5 Uni vers 2.5 mg 0-11 mg by ity of tablet 14:05: mouth. [address] 2021-06 Yes 2.5mg Take 2.5 Uni vers 2.5 mg 0-11 mg by ity of tablet 14:05: mouth. [address] 2021-06 Yes 2.5mg Take 2.5 Uni vers 2.5 mg 0-11 mg by ity of tablet 14:05: mouth. [address] 2021-06 Yes 2.5mg Take 2.5 Uni vers 2.5 mg 0-11 mg by ity of tablet 14:05: mouth. [address] 2021-06 Yes 2.5mg Take 2.5 Uni vers 2.5 mg 0-11 mg by ity of tablet 14:05: mouth. [address] 2021-06 Yes 2.5mg Take 2.5 Uni vers 2.5 mg 0-11 mg by ity of tablet 14:05: mouth. [address] 2021-06 Yes 2.5mg Take 2.5 Uni vers 2.5 mg 0-11 mg by ity of tablet 14:05: mouth. [address] 2021-06 Yes 2.5mg Take 2.5 Uni vers 2.5 mg 0-11 mg by ity of tablet 14:05: mouth. [address] 2021-06 Yes 2.5mg Take 2.5 Uni vers 2.5 mg 0-11 mg by ity of tablet 14:05: mouth. [address] 2021-06 Yes 2.5mg Take 2.5 Uni vers 2.5 mg 0-11 mg by ity of tablet 14:05: mouth. [address] 2021-06 Yes 2.5mg Take 2.5 Uni vers 2.5 mg 0-11 mg by ity of tablet 14:05: mouth. [address] 2021-06 Yes 2.5mg Take 2.5 Uni vers 2.5 mg 0-11 mg by ity of tablet 14:05: mouth. [address] 2021-06 Yes 2.5mg Take 2.5 Uni vers 2.5 mg 0-11 mg by ity of tablet 14:05: mouth. [address] 2021-06 Yes 2.5mg Take 2.5 Uni vers 2.5 mg 0-11 mg by ity of tablet 14:05: mouth. [address] 2021-06 Yes 2.5mg Take 2.5 Uni vers 2.5 mg 0-11 mg by ity of tablet 14:05: mouth. [address] 2021-06 Yes 2.5mg Take 2.5 Uni vers 2.5 mg 0-11 mg by ity of tablet 14:05: mouth. [address] 2021-06 Yes 2.5mg Take 2.5 Uni vers 2.5 mg 0-11 mg by ity of tablet 14:05: mouth. [place] 44 [facility] BUPROPION 2021-06 Yes [id number] 450mg Take 450 Univers HCL 0-11 mg by ity of (WELLBUTRIN 14:02: mouth [place] ORAL) 34 daily. [facility] traZODONE 2021-06 Yes 100mg Take 100 Uni vers (DESYREL) 0-11 mg by ity of 100 mg 14:02: mouth at [place] tablet 34 bedtime. [facility] BUPROPION 2021-06 Yes [id number] 450mg Take 450 Univers HCL 0-11 mg by ity of (WELLBUTRIN 14:02: mouth [place] ORAL) 34 daily. [facility] traZODONE 2021-06 Yes 100mg Take 100 Uni vers (DESYREL) 0-11 mg by ity of 100 mg 14:02: mouth at [place] tablet 34 bedtime. [facility] BUPROPION 2021-06 Yes [id number] 450mg Take 450 [facility] HCL 0-11 mg by ity of (WELLBUTRIN 14:02: mouth [place] ORAL) 34 daily. [facility] traZODONE 2021-06 Yes 100mg Take 100 Uni vers (DESYREL) 0-11 mg by ity of 100 mg 14:02: mouth at [place] tablet 34 bedtime. [facility] BUPROPION 2021-06 Yes [id number] 450mg Take 450 [facility] HCL 0-11 mg by ity of (WELLBUTRIN 14:02: mouth [place] ORAL) 34 daily. [facility] traZODONE 2021-06 Yes 100mg Take 100 Uni vers (DESYREL) 0-11 mg by ity of 100 mg 14:02: mouth at [place] tablet 34 bedtime. [facility] BUPROPION 2021-06 Yes [id number] 450mg Take 450 [facility] HCL 0-11 mg by ity of (WELLBUTRIN 14:02: mouth [place] ORAL) 34 daily. [facility] traZODONE 2021-06 Yes 100mg Take 100 Uni vers (DESYREL) 0-11 mg by ity of 100 mg 14:02: mouth at [place] tablet 34 bedtime. [facility] BUPROPION 2021-06 Yes [id number] 450mg Take 450 [facility] HCL 0-11 mg by ity of (WELLBUTRIN 14:02: mouth [place] ORAL) 34 daily. [facility] traZODONE 2021-06 Yes 100mg Take 100 Uni vers (DESYREL) 0-11 mg by ity of 100 mg 14:02: mouth at [place] tablet 34 bedtime. [facility] BUPROPION 2021-06 Yes [id number] 450mg Take 450 [facility] HCL 0-11 mg by ity of (WELLBUTRIN 14:02: mouth [place] ORAL) 34 daily. Medical Branch traZODONE 2021-06 Yes 100mg Take 100 Uni vers (DESYREL) 0-11 mg by ity of 100 mg 14:02: mouth at [place] tablet 34 bedtime. [facility] BUPROPION 2021-06 Yes [id number] 450mg Take 450 [facility] HCL 0-11 mg by ity of (WELLBUTRIN 14:02: mouth [place] ORAL) 34 daily. [facility] traZODONE 2021-06 Yes 100mg Take 100 Uni vers (DESYREL) 0-11 mg by ity of 100 mg 14:02: mouth at [place] tablet 34 bedtime. [facility] BUPROPION 2021-06 Yes [id number] 450mg Take 450 [facility] HCL 0-11 mg by ity of (WELLBUTRIN 14:02: mouth [place] ORAL) 34 daily. [facility] traZODONE 2021-06 Yes 100mg Take 100 Uni vers (DESYREL) 0-11 mg by ity of 100 mg 14:02: mouth at [place] tablet 34 bedtime. [facility] BUPROPION 2021-06 Yes [id number] 450mg Take 450 [facility] HCL 0-11 mg by ity of (WELLBUTRIN 14:02: mouth [place] ORAL) 34 daily. [facility] traZODONE 2021-06 Yes 100mg Take 100 Uni vers (DESYREL) 0-11 mg by ity of 100 mg 14:02: mouth at [place] tablet 34 bedtime. [facility] BUPROPION 2021-06 Yes [id number] 450mg Take 450 [facility] HCL 0-11 mg by ity of (WELLBUTRIN 14:02: mouth [place] ORAL) 34 daily. [facility] traZODONE 2021-06 Yes 100mg Take 100 Uni vers (DESYREL) 0-11 mg by ity of 100 mg 14:02: mouth at [place] tablet 34 bedtime. [facility] BUPROPION 2021-06 Yes [id number] 450mg Take 450 [facility] HCL 0-11 mg by ity of (WELLBUTRIN 14:02: mouth [place] ORAL) 34 daily. Medical Branch traZODONE 2021-06 Yes 100mg Take 100 Uni vers (DESYREL) 0-11 mg by ity of 100 mg 14:02: mouth at [place] tablet 34 bedtime. [facility] BUPROPION 2021-06 Yes [id number] 450mg Take 450 [facility] HCL 0-11 mg by ity of (WELLBUTRIN 14:02: mouth [place] ORAL) 34 daily. Medical Branch traZODONE 2021-06 Yes 100mg Take 100 Uni vers (DESYREL) 0-11 mg by ity of 100 mg 14:02: mouth at [place] tablet 34 bedtime. [facility] BUPROPION 2021-06 Yes [id number] 450mg Take 450 [facility] HCL 0-11 mg by ity of (WELLBUTRIN 14:02: mouth [place] ORAL) 34 daily. [facility] traZODONE 2021-06 Yes 100mg Take 100 Uni vers (DESYREL) 0-11 mg by ity of 100 mg 14:02: mouth at [place] tablet 34 bedtime. [facility] BUPROPION 2021-06 Yes [id number] 450mg Take 450 [facility] HCL 0-11 mg by ity of (WELLBUTRIN 14:02: mouth [place] ORAL) 34 daily. [facility] traZODONE 2021-06 Yes 100mg Take 100 Uni vers (DESYREL) 0-11 mg by ity of 100 mg 14:02: mouth at [place] tablet 34 bedtime. [facility] BUPROPION 2021-06 Yes [id number] 450mg Take 450 [facility] HCL 0-11 mg by ity of (WELLBUTRIN 14:02: mouth [place] ORAL) 34 daily. [facility] traZODONE 2021-06 Yes 100mg Take 100 Uni vers (DESYREL) 0-11 mg by ity of 100 mg 14:02: mouth at [place] tablet 34 bedtime. [facility] BUPROPION 2021-06 Yes [id number] 450mg Take 450 [facility] HCL 0-11 mg by ity of (WELLBUTRIN 14:02: mouth [place] ORAL) 34 daily. [facility] traZODONE 2021-06 Yes 100mg Take 100 Uni vers (DESYREL) 0-11 mg by ity of 100 mg 14:02: mouth at [place] tablet 34 bedtime. [facility] BUPROPION 2021-06 Yes [id number] 450mg Take 450 [facility] HCL 0-11 mg by ity of (WELLBUTRIN 14:02: mouth [place] ORAL) 34 daily. [facility] traZODONE 2021-06 Yes 100mg Take 100 [facility] vers (DESYREL) 0-11 mg by ity of 100 mg 14:02: mouth at [place] tablet 34 bedtime. [facility] BUPROPION 2021-06 Yes [id number] 450mg Take 450 [facility] HCL 0-11 mg by ity of (WELLBUTRIN 14:02: mouth [place] ORAL) 34 daily. [facility] traZODONE 2021-06 Yes 100mg Take 100 [facility] vers (DESYREL) 0-11 mg by ity of 100 mg 14:02: mouth at [place] tablet 34 bedtime. [facility] BUPROPION 2021-06 Yes [id number] 450mg Take 450 [facility] HCL 0-11 mg by ity of (WELLBUTRIN 14:02: mouth [place] ORAL) 34 daily. [facility] traZODONE 2021-06 Yes 100mg Take 100 [facility] vers (DESYREL) 0-11 mg by ity of 100 mg 14:02: mouth at [place] tablet 34 bedtime. [facility] BUPROPION 2021-06 Yes [id number] 450mg Take 450 [facility] HCL 0-11 mg by ity of (WELLBUTRIN 14:02: mouth [place] ORAL) 34 daily. [facility] traZODONE 2021-06 Yes 100mg Take 100 Uni vers (DESYREL) 0-11 mg by ity of 100 mg 14:02: mouth at [place] tablet 34 bedtime. [facility] BUPROPION 2021-06 Yes [id number] 450mg Take 450 [facility] HCL 0-11 mg by ity of (WELLBUTRIN 14:02: mouth [place] ORAL) 34 daily. [facility] traZODONE 2021-06 Yes 100mg Take 100 [facility] vers (DESYREL) 0-11 mg by ity of 100 mg 14:02: mouth at [place] tablet 34 bedtime. [facility] BUPROPION 2021-06 Yes [id number] 450mg Take 450 [facility] HCL 0-11 mg by ity of (WELLBUTRIN 14:02: mouth [place] ORAL) 34 daily. [facility] traZODONE 2021-06 Yes 100mg Take 100 [facility] vers (DESYREL) 0-11 mg by ity of 100 mg 14:02: mouth at [place] tablet [address] [facility] BUPROPION 2021-06 Yes [id number] 450mg Take 450 [facility] HCL 0-11 mg by ity of (WELLBUTRIN 14:02: mouth [place] ORAL) 34 daily. [facility] traZODONE 2021-06 Yes 100mg Take 100 [facility] vers (DESYREL) 0-11 mg by ity of 100 mg 14:02: mouth at [place] tablet 34 bedtime. [facility] BUPROPION 2021-06 Yes [id number] 450mg Take 450 [facility] HCL 0-11 mg by ity of (WELLBUTRIN 14:02: mouth [place] ORAL) 34 daily. [facility] traZODONE 2021-06 Yes 100mg Take 100 [facility] vers (DESYREL) 0-11 mg by ity of 100 mg 14:02: mouth at [place] tablet 34 bedtime. [facility] BUPROPION 2021-06 Yes [id number] 450mg Take 450 [facility] HCL 0-11 mg by ity of (WELLBUTRIN 14:02: mouth [place] ORAL) 34 daily. [facility] traZODONE 2021-06 Yes 100mg Take 100 [facility] vers (DESYREL) 0-11 mg by ity of 100 mg 14:02: mouth at [place] tablet 34 bedtime. [facility] BUPROPION 2021-06 Yes [id number] 450mg Take 450 [facility] HCL 0-11 mg by ity of (WELLBUTRIN 14:02: mouth [place] ORAL) 34 daily. [facility] traZODONE 2021-06 Yes 100mg Take 100 [facility] vers (DESYREL) 0-11 mg by ity of 100 mg 14:02: mouth at [place] tablet 34 bedtime. [facility] BUPROPION 2021-06 Yes [id number] 450mg Take 450 [facility] HCL 0-11 mg by ity of (WELLBUTRIN 14:02: mouth [place] ORAL) 34 daily. [facility] traZODONE 2021-06 Yes 100mg Take 100 [facility] vers (DESYREL) 0-11 mg by ity of 100 mg 14:02: mouth at [place] tablet 34 bedtime. [facility] gabapentin 2021-06 Yes [id number] 600mg Take 600 [facility] enacarbil 0-11 mg by ity of (HORIZANT) 00:00: [place] 600 [place] TbSR 00 (two) Medical times Branch daily. gabapentin 2021-06 Yes [id number] 600mg Take 600 [facility] enacarbil 0-11 mg by ity of (HORIZANT) 00:00: [place] 2 [place] 600 mg TbSR 00 (two) Medical times Branch daily. gabapentin 2021-06 Yes [id number] 600mg Take 600 [facility] enacarbil 0-11 mg by ity of (HORIZANT) 00:00: [place] 2 [place] 600 mg TbSR 00 (two) Medical times Branch daily. gabapentin 2021-06 Yes [id number] 600mg Take 600 [facility] enacarbil 0-11 mg by ity of (HORIZANT) 00:00: [place] 2 [place] 600 mg TbSR 00 (two) Medical times Branch daily. gabapentin 2021-06 Yes [id number] 600mg Take 600 [facility] enacarbil 0-11 mg by ity of (HORIZANT) 00:00: mouth 2 [place] mg TbSR 00 (two) Medical times Branch daily. gabapentin 2021-06 Yes [id number] 600mg Take 600 [facility] enacarbil 0-11 mg by ity of (HORIZANT) 00:00: [place] 2 [place] mg TbSR 00 (two) Medical times Branch daily. gabapentin 2021-06 Yes [id number] 600mg Take 600 [facility] enacarbil 0-11 mg by ity of (HORIZANT) 00:00: mouth 2 [place] 600 mg TbSR 00 (two) Medical times Branch daily. gabapentin 2021-06 Yes [id number] 600mg Take 600 [facility] enacarbil 0-11 mg by ity of (HORIZANT) 00:00: mouth 2 [place] 600 mg TbSR 00 (two) Medical times Branch daily. gabapentin 2021-06 Yes [id number] 600mg Take 600 [facility] enacarbil 0-11 mg by ity of (HORIZANT) 00:00: mouth 2 [place] 600 mg TbSR 00 (two) Medical times Branch daily. gabapentin 2021-06 Yes [id number] 600mg Take 600 [facility] enacarbil 0-11 mg by ity of (HORIZANT) 00:00: mouth 2 [place] 600 mg TbSR 00 (two) Medical times Branch daily. gabapentin 2021-06 Yes [id number] 600mg Take 600 [facility] enacarbil 0-11 mg by ity of (HORIZANT) 00:00: mouth 2 [place] 600 mg TbSR 00 (two) Medical times Branch daily. gabapentin 2021-06 Yes [id number] 600mg Take 600 [facility] enacarbil 0-11 mg by ity of (HORIZANT) 00:00: mouth 2 [place] 600 mg TbSR 00 (two) Medical times Branch daily. gabapentin 2021-06 Yes [id number] 600mg Take 600 [facility] enacarbil 0-11 mg by ity of (HORIZANT) 00:00: mouth 2 [place] 600 mg TbSR 00 (two) Medical times Branch daily. gabapentin 2021-06 Yes [id number] 600mg Take 600 [facility] enacarbil 0-11 mg by ity of (HORIZANT) 00:00: mouth 2 [place] 600 mg TbSR 00 (two) Medical times Branch daily. gabapentin 2021-06 Yes [id number] 600mg Take 600 [facility] enacarbil 0-11 mg by ity of (HORIZANT) 00:00: mouth 2 [place] mg TbSR 00 (two) Medical times Branch daily. gabapentin 2021-06 Yes [id number] 600mg Take 600 [facility] enacarbil 0-11 mg by ity of (HORIZANT) 00:00: mouth 2 [place] mg TbSR 00 (two) Medical times Branch daily. gabapentin 2021-06 Yes [id number] 600mg Take 600 [facility] enacarbil 0-11 mg by ity of (HORIZANT) 00:00: mouth 2 [place] mg TbSR 00 (two) Medical times Branch daily. gabapentin 2021-06 Yes [id number] 600mg Take 600 [facility] enacarbil 0-11 mg by ity of (HORIZANT) 00:00: mouth 2 [place] 600 mg TbSR 00 (two) Medical times Branch daily. gabapentin 2021-06 Yes [id number] 600mg Take 600 [facility] enacarbil 0-11 mg by ity of (HORIZANT) 00:00: mouth 2 [place] 600 mg TbSR 00 (two) Medical times Branch daily. gabapentin 2021-06 Yes [id number] 600mg Take 600 [facility] enacarbil 0-11 mg by ity of (HORIZANT) 00:00: mouth 2 [place] 600 mg TbSR 00 (two) Medical times Branch daily. gabapentin 2021-06 Yes [id number] 600mg Take 600 [facility] enacarbil 0-11 mg by ity of (HORIZANT) 00:00: mouth 2 [place] 600 mg TbSR 00 (two) Medical times Branch daily. gabapentin 2021- Yes [id number] 600mg Take 600 [facility] enacarbil 0-11 mg by ity of (HORIZANT) 00:00: mouth 2 [place] 600 mg TbSR 00 (two) Medical times Branch daily. gabapentin 2021- Yes [id number] 600mg Take 600 [facility] enacarbil 0-11 mg by ity of (HORIZANT) 00:00: mouth 2 [place] 600 mg TbSR 00 (two) Medical times Branch daily. gabapentin 2021-06 Yes [id number] 600mg Take 600 [facility] enacarbil 0-11 mg by ity of (HORIZANT) 00:00: mouth 2 [place] 600 mg TbSR 00 (two) Medical times Branch daily. gabapentin 2021-06 Yes [id number] 600mg Take 600 [facility] enacarbil 0-11 mg by ity of (HORIZANT) 00:00: mouth 2 [place] 600 mg TbSR 00 (two) Medical times Branch daily. gabapentin 2021-06 Yes [id number] 600mg Take 600 [facility] enacarbil 0-11 mg by ity of (HORIZANT) 00:00: mouth 2 [place] 600 mg TbSR 00 (two) Medical times Branch daily. gabapentin 2021-06 Yes [id number] 600mg Take 600 [facility] enacarbil 0-11 mg by ity of (HORIZANT) 00:00: mouth 2 [place] 600 mg TbSR 00 (two) Medical times Branch daily. gabapentin 2021- Yes [id number] 600mg Take 600 [facility] enacarbil 0-11 mg by ity of (HORIZANT) 00:00: mouth 2 [place] 600 mg TbSR 00 (two) Medical times Branch daily. Gabapentin 2021- Yes 600mg Take 600 [facility] En[facility] 0-11 [facility] (HORIZANT) 00:00: mouth. of 600 MG TBCR 00 Medicin e Gabapentin 2021- Yes 600mg Take 600 [facility] Enacarbil 0-11 [facility] (HORIZANT) 00:00: mouth. of 600 MG TBCR 00 Medicin e Gabapentin 2021- Yes 600mg Take 600 [facility] Enacarbil 0-11 mg by [facility] (HORIZANT) 00:00: mouth. of 600 MG TBCR 00 Medicin e metoprolol 2021-06 Yes Univers tartrate 25 0-09 ity of mg tablet 00:00: [place] [facility] metoprolol 2021-06 Yes [facility] tartrate 25 0-09 ity of mg tablet 00:00: [place] [facility] metoprolol 2021-06 Yes Univers tartrate 25 0-09 ity of mg tablet 00:00: [place] [facility] metoprolol 2021-06 Yes Univers tartrate 25 0-09 ity of mg tablet 00:00: [place] [facility] metoprolol 2021-06 Yes Univers tartrate 25 0-09 ity of mg tablet 00:00: [place] [facility] metoprolol 2021-06 Yes Univers tartrate 25 0-09 ity of mg tablet 00:00: [address] metoprolol 2021-06 Yes Univers tartrate 25 0-09 ity of mg tablet 00:00: [place] [facility] metoprolol 2021-06 Yes Univers tartrate 25 0-09 ity of mg tablet 00:00: [place] [facility] metoprolol 2021-06 Yes Univers tartrate 25 0-09 ity of mg tablet 00:00: [place] [facility] metoprolol 2021-06 Yes Univers tartrate 25 0-09 ity of mg tablet 00:00: [place] [facility] metoprolol 2021-06 Yes Univers tartrate 25 0-09 ity of mg tablet 00:00: [address] metoprolol 2021-06 Yes Univers tartrate 25 0-09 ity of mg tablet 00:00: [place] [facility] metoprolol 2021-06 Yes Univers tartrate 25 0-09 ity of mg tablet 00:00: [place] [facility] metoprolol 2021-06 Yes Univers tartrate 25 0-09 ity of mg tablet 00:00: [place] [facility] metoprolol 2021-06 Yes Univers tartrate 25 0-09 ity of mg tablet 00:00: [address] metoprolol 2021- Yes Univers tartrate 25 0-09 ity of mg tablet 00:00: [address] metoprolol 2021- Yes Univers tartrate 25 0-09 ity of mg tablet 00:00: [place] [facility] metoprolol 2021- Yes Univers tartrate 25 0-09 ity of mg tablet 00:00: [place] [facility] metoprolol 2021-06 Yes Univers tartrate 25 0-09 ity of mg tablet 00:00: [place] [facility] metoprolol 2021-06 Yes Univers tartrate 25 0-09 ity of mg tablet 00:00: [address] metoprolol 2021-06 Yes Univers tartrate 25 0-09 ity of mg tablet 00:00: [place] [facility] metoprolol 2021-06 Yes Univers tartrate 25 0-09 ity of mg tablet 00:00: [place] [facility] metoprolol 2021-06 Yes Univers tartrate 25 0-09 ity of mg tablet 00:00: [address] metoprolol 2021-06 Yes Univers tartrate 25 0-09 ity of mg tablet 00:00: [address] metoprolol 2021-06 Yes Univers tartrate 25 0-09 ity of mg tablet 00:00: [address] metoprolol 2021-06 Yes Univers tartrate 25 0-09 ity of mg tablet 00:00: [place] [facility] metoprolol 2021-06 Yes Univers tartrate 25 0-09 ity of mg tablet 00:00: [address] metoprolol 2021-06 Yes Univers tartrate 25 0-09 ity of mg tablet 00:00: [address] lamoTRIgine 2021-06 Yes Univer s 300 mg TR24 0-05 ity of 00:00: [address] lamoTRIgine 2021-06 Yes Univer s 300 mg TR24 0-05 ity of 00:00: [place] [facility] lamoTRIgine 2021-06 Yes Univer s 300 mg TR24 0-05 ity of 00:00: [address] lamoTRIgine 2021-06 Yes Univer s 300 mg TR24 0-05 ity of 00:00: [address] lamoTRIgine 2021-06 Yes Univer s 300 mg TR24 0-05 ity of 00:00: [address] lamoTRIgine 2021-06 Yes Univer s 300 mg TR24 0-05 ity of 00:00: [address] lamoTRIgine 2021-06 Yes Univer s 300 mg TR24 0-05 ity of 00:00: [place] 00 [facility] lamoTRIgine 2- Yes Univer s 300 mg TR24 0-05 ity of 00:00: [place] [facility] lamoTRIgine 2021- Yes Univer s 300 mg TR24 0-05 ity of 00:00: [place] [facility] lamoTRIgine 2021- Yes Univer s 300 mg TR24 0-05 ity of 00:00: [place] [facility] lamoTRIgine 2021- Yes Univer s 300 mg TR24 0-05 ity of 00:00: [place] [facility] lamoTRIgine 2021- Yes Univer s 300 mg TR24 0-05 ity of 00:00: [place] [facility] lamoTRIgine 2021-06 Yes Univer s 300 mg TR24 0-05 ity of 00:00: [place] [facility] lamoTRIgine 2021-06 Yes Univer s 300 mg TR24 0-05 ity of 00:00: [place] [facility] lamoTRIgine 2021- Yes Univer s 300 mg TR24 0-05 ity of 00:00: [place] [facility] lamoTRIgine 2021- Yes Univer s 300 mg TR24 0-05 ity of 00:00: [place] [facility] lamoTRIgine 2021- Yes Univer s 300 mg TR24 0-05 ity of 00:00: [place] [facility] lamoTRIgine 2021- Yes Univer s 300 mg TR24 0-05 ity of 00:00: [place] [facility] lamoTRIgine 2021- Yes Univer s 300 mg TR24 0-05 ity of 00:00: [place] [facility] lamoTRIgine 2- Yes Univer s 300 mg TR24 0-05 ity of 00:00: [place] [facility] lamoTRIgine 2- Yes Univer s 300 mg TR24 0-05 ity of 00:00: [place] [facility] lamoTRIgine 2021- Yes Univer s 300 mg TR24 0-05 ity of 00:00: [place] 00 [facility] lamoTRIgine 2021- Yes Univer s 300 mg TR24 0-05 ity of 00:00: [place] [facility] lamoTRIgine 2021-1 Yes Univer s 300 mg TR24 0-05 ity of 00:00: Medical Branch lamoTRIgine 2021-06 Yes Univer s 300 mg TR24 0-05 ity of 00:00: Medical Branch lamoTRIgine 2021-06 Yes Univer s 300 mg TR24 0-05 ity of 00:00: Medical Branch lamoTRIgine 2021-06 Yes Univer s 300 mg TR24 0-05 ity of 00:00: [facility] Branch lamoTRIgine 2021-06 Yes Univer s 300 mg TR24 0-05 ity of 00:00: [facility] Branch ondansetron 2021- No 4mg Q6H Take 1 [facility] (ZOFRAN) 4 9-30 10-04 tablet (4 st MG tablet 00:00: 04:59 mg total) [facility] :00 by mouth l every 6 (six) hours for 3 days. ondansetron 2021- No 4mg Q6H Take 1 [facility] (ZOFRAN) 4 9-30 10-04 tablet (4 st MG tablet 00:00: 04:59 mg total) [facility] 00 :00 by mouth l every 6 (six) hours for 3 days. ondansetron 2021-2021- No 4mg Q6H Take 1 [facility] (ZOFRAN) 4 9-30 10-04 tablet (4 st MG tablet 00:00: 04:59 mg total) [facility] 00 :00 by mouth l every 6 (six) hours for 3 days. dextroamphe Yes Univer s tamine-amph 9-29 ity of etamine 15 00:00: [place] mg tablet 00 Medical Branch hydrOXYzine Yes Univer s 25 mg 9-29 ity of tablet 00:00: Medical Branch dextroamphe Yes Univer s tamine-amph 9-29 ity of etamine 15 00:00: [place] mg tablet 00 Medical Branch hydrOXYzine Yes Univer s 25 mg 9-29 ity of tablet 00:00: Medical Branch dextroamphe Yes Univer s tamine-amph 9-29 ity of etamine 15 00:00: [place] mg tablet Medical Branch hydrOXYzine 2-0 Yes Univer s 25 mg 9-29 ity [...] [place] 00 [facility] dextroamphe 2021-0 Yes [facility] tamine-amph 9-29 ity of etamine 15 00:00: [place] mg tablet 00 Medical [facility] hydrOXYzine 2021-0 Yes Univer s 25 mg 9-29 ity of tablet 00:00: [place] 00 [facility] dextroamphe 2-0 Yes Univer s tamine-amph 9-29 ity of [...] Branch dextroamphe 2021-0 Yes Univer s tamine-amph - ity of etamine 15 00:00: [place] mg tablet 00 Medical Branch hydrOXYzine 2021-0 Yes Univer s 25 mg 9-29 ity of tablet 00:00: [place] 00 [facility] dextroamphe 2021-0 Yes Univer s tamine-amph - ity of etamine 15 00:00: [place] mg [...] Branch dextroamphe 2021-0 Yes Univer s tamine-amph 03-22 ity of etamine 15 00:00: [place] mg tablet 00 Medical Branch hydrOXYzine 2021-0 Yes Univer s 25 mg 9-29 ity of tablet 00:00: [place] 00 [facility] dextroamphe 2021-0 Yes Univer s tamine-amph 03-22 ity of etamine 15 00:00: [place] mg tablet 00 Medical Branch hydrOXYzine 2021-0 Yes Univer s 25 mg 9-29 ity of tablet 00:00: [place] 00 [facility] dextroamphe 2021-0 Yes Univer s tamine-amph 03-22 ity of etamine 15 00:00: [place] mg tablet 00 Medical Branch hydrOXYzine 2021-0 Yes Univer s 25 mg 9-29 ity of tablet 00:00: [place] 00 [facility] dextroamphe 2021-0 Yes Univer s tamine-amph - ity of etamine 15 00:00: [place] mg [...] 25 mg 03-22 ity of tablet 00:00: [place] [facility] dextroamphe Yes Univer s tamine-amph 03-22 ity of etamine 15 00:00: [place] mg tablet 00 Medical Branch hydrOXYzine Yes Univer s 25 mg 03-22 ity of tablet 00:00: [place] 00 [facility] PAXLOVID, 2021- No [facility] 300/100, 20 9-27 10-13 [facility] x 150 MG & 00:00: 00:00 of 10 x 100MG 00 :00 Medicin tablet e therapy pack cefpodoxime 2021- No 100mg Q.5D Take [address] [facility] [address] [facility] (VANTIN[facility] 03-18 [facility] MG 00:00: 00:00 (100 mg Medical tablet 00 :00 total) by Center mouth 2 (two) times daily for 1 day. cefpodoxime 2021- No 100mg Q.5D Take [address] [facility] [address] (VANTIN) 03-18 tablet [facility] 100 MG 00:00: 00:00 (100 mg Medical tablet 00 :00 total) by Center mouth 2 (two) times daily for 1 day. cefpodoxime 2021- No 100mg Q.5D Take 1 [...] al mg Tab 04 :00 morning . [place] dextroamphe 2021- No 15mg QD Take [address] [facility] tamine-amph 03-17 by mouth [facility] etamine 15 15:26: 00:00 every Medic al mg Tab 04 :00 morning . [place] dextroamphe 2021- No 15mg QD Take [address] [facility] tamine-amph 9-24 09-24 by mouth [facility] etamine 15 15:26: 00:00 every Medic al mg Tab 04 :00 morning . [place] methocarbam 2021-0 Yes Univer s oL 500 mg 9-24 ity of tablet 00:00: [place] [facility] fluconazole 2021-0 Yes Univer s 150 mg 9-24 ity of tablet 00:00: [place] [address] [facility] Branch methocarbam 2021-0 Yes Univer s oL 500 mg 9-24 ity of tablet 00:00: [place] [address] [facility] Branch fluconazole 2-0 Yes Univer s 150 mg 9-24 ity of tablet 00:00: [place] [address] [facility] Branch methocarbam 2-0 Yes Univer s oL 500 mg 9-24 ity of tablet 00:00: [place] [address] [facility] Branch fluconazole 2-0 Yes Univer s 150 mg 9-24 ity of tablet 00:00: [place] [address] [facility] Branch methocarbam 2-0 Yes Univer s oL 500 mg 9-24 ity of tablet 00:00: [place] [address] [facility] Branch fluconazole 2-0 Yes Univer s 150 mg 9-24 ity of tablet 00:00: [place] [address] [facility] Branch methocarbam 2-0 Yes Univer s oL 500 mg 9-24 ity of tablet 00:00: [place] [address] [facility] Branch fluconazole 2-0 Yes Univer s 150 mg 9-24 ity of tablet 00:00: [place] [address] [facility] Branch methocarbam 2022-0 Yes Univer s oL 500 mg 9-24 ity of tablet 00:00: [place] [address] [facility] Branch fluconazole 2022-0 Yes Univer s 150 mg 9-24 ity of tablet 00:00: [place] [address] [facility] Branch methocarbam 2022-0 Yes Univer s oL 500 mg 9-24 ity of tablet 00:00: [place] [address] [facility] Branch fluconazole 2022-0 Yes Univer s 150 mg 9-24 ity of tablet 00:00: [place] [address] [facility] Branch methocarbam 2022-0 Yes Univer s oL 500 mg 9-24 ity of tablet 00:00: [place] [address] [facility] Branch fluconazole 2022-0 Yes Univer s 150 mg 9-24 ity of tablet 00:00: [place] [address] [facility] Branch methocarbam 2022-0 Yes Univer s oL 500 mg 9-24 ity of tablet 00:00: [place] 00 [facility] fluconazole 2022-0 Yes Univer s 150 mg 9-24 ity of tablet 00:00: [place] 00 [facility] methocarbam 2022-0 Yes Univer s oL 500 mg 9-24 ity of tablet 00:00: [place] 00 [facility] fluconazole 2022-0 Yes Univer s 150 mg 9-24 ity of tablet 00:00: [place] [facility] methocarbam 2022-0 Yes Univer s oL 500 mg 9-24 ity of tablet 00:00: [place] 00 [facility] fluconazole 2022-0 Yes Univer s 150 mg 9-24 ity of tablet 00:00: [place] [address] [facility] Branch methocarbam 2022-0 Yes Univer s oL 500 mg 9-24 ity of tablet 00:00: [place] [address] [facility] Branch fluconazole 2022-0 Yes Univer s 150 mg 9-24 ity of tablet 00:00: [place] [address] [facility] methocarbam 2022-0 Yes Univer s oL 500 mg 9-24 ity of tablet 00:00: [place] [address] [facility] Branch fluconazole 2022-0 Yes Univer s 150 mg 9-24 ity of tablet 00:00: [place] [address] [facility] Branch methocarbam 2022-0 Yes Univer s oL 500 mg 9-24 ity of tablet 00:00: [place] [address] [facility] Branch fluconazole 2022-0 Yes Univer s 150 mg 9-24 ity of tablet 00:00: [place] [address] [facility] Branch methocarbam 2022-0 Yes Univer s oL 500 mg 9-24 ity of tablet 00:00: [place] [address] [facility] Branch fluconazole 2022-0 Yes Univer s 150 mg 9-24 ity of tablet 00:00: [place] [facility] methocarbam 2022-0 Yes Univer s oL 500 mg 9-24 ity of tablet 00:00: [place] [address] [facility] Branch fluconazole 2022-0 Yes Univer s 150 mg 9-24 ity of tablet 00:00: [place] [address] [facility] Branch methocarbam 2022-0 Yes Univer s oL 500 mg 9-24 ity of tablet 00:00: [place] [address] [facility] Branch fluconazole 2022-0 Yes Univer s 150 mg 9-24 ity of tablet 00:00: [place] [address] [facility] Branch methocarbam 2022-0 Yes Univer s oL 500 mg 9-24 ity of tablet 00:00: [place] [address] [facility] Branch fluconazole 2022-0 Yes Univer s 150 mg 9-24 ity of tablet 00:00: [place] 00 [facility] methocarbam 2022-0 Yes Univer s oL 500 mg 9-24 ity of tablet 00:00: [place] 00 [facility] fluconazole 2022-0 Yes Univer s 150 mg 9-24 ity of tablet 00:00: [place] 00 [facility] methocarbam 2022-0 Yes Univer s oL 500 mg 9-24 ity of tablet 00:00: [place] 00 [facility] fluconazole 2022-0 Yes Univer s 150 mg 9-24 ity of tablet 00:00: [place] 00 [facility] methocarbam 2022-0 Yes Univer s oL 500 mg 9-24 ity of tablet 00:00: [place] [address] [facility] Branch fluconazole 2022-0 Yes Univer s 150 mg 9-24 ity of tablet 00:00: [place] [address] [facility] Branch methocarbam 2022-0 Yes Univer s oL 500 mg 9-24 ity of tablet 00:00: [place] [address] [facility] Branch fluconazole 2022-0 Yes Univer s 150 mg 9-24 ity of tablet 00:00: [place] [address] [facility] Branch methocarbam 2022-0 Yes Univer s oL 500 mg 9-24 ity of tablet 00:00: [place] [address] [facility] Branch fluconazole 2022-0 Yes Univer s 150 mg 9-24 ity of tablet 00:00: [place] [address] [facility] Branch methocarbam 2022-0 Yes Univer s oL 500 mg 9-24 ity of tablet 00:00: [place] [address] [facility] Branch fluconazole 2022-0 Yes Univer s 150 mg 9-24 ity of tablet 00:00: [place] [facility] methocarbam 2022-0 Yes Univer s oL 500 mg 9-24 ity of tablet 00:00: [place] [address] [facility] Branch fluconazole 2022-0 Yes Univer s 150 mg 9-24 ity of tablet 00:00: [place] [address] [facility] Branch methocarbam 2022-0 Yes Univer s oL 500 mg 9-24 ity of tablet 00:00: [place] [address] [facility] Branch fluconazole 2022-0 Yes Univer s 150 mg 9-24 ity of tablet 00:00: [place] [address] [facility] Branch methocarbam 2022-0 Yes Univer s oL 500 mg 9-24 ity of tablet 00:00: [place] [address] [facility] Branch fluconazole 2022-0 Yes Univer s 150 mg 9-24 ity of tablet 00:00: [place] 00 [facility] methocarbam 2-0 Yes Univer s oL 500 mg 9-24 ity of tablet 00:00: [place] [facility] fluconazole 2-0 Yes Univer s 150 mg 9-24 ity of tablet 00:00: [place] 00 [facility] methocarbam 2-0 Yes [facility] ol 9-24 [place] (ROBAXIN) 00:00: of 500 MG 00 Medicin tablet e methocarbam 2021-0 Yes [facility] ol 9-24 [facility] (ROBAXIN) 00:00: of 500 MG 00 Medicin tablet e ibuprofen 2021-0 Yes 200mg Take 200 [place] [facility] (MOTRIN) 9-24 mg by [place] 400 MG 00:00: mouth of tablet 00 every 6 Medicin hours as e needed. methocarbam 2021-0 Yes [facility] ol 9-24 [place] (ROBAXIN) 00:00: of 500 MG 00 Medicin tablet e ibuprofen 2-0 Yes 200mg Take 200 [place] [facility] (MOTRIN) 9-24 mg by [place] 400 MG 00:00: mouth of tablet 00 every 6 Medicin hours as e needed. methocarbam 2021-0 Yes [facility] ol 9-24 [place] (ROBAXIN) 00:00: of 500 MG 00 Medicin tablet e ibuprofen 2-0 Yes 200mg Take 200 [place] [facility] (MOTRIN) 9-24 mg by [place] 400 MG 00:00: mouth of tablet 00 every 6 Medicin hours as e needed. HYDROcodone 2021-0 Yes 1{tbl} Take [address] -acetaminop 9-24 tablet by [facility] (NORCO 00:00: mouth Medica l 5-325) 00 every 4 Center 5-325 mg (four) per tablet hours as needed. Max Daily Amount: 6 tablets HYDROcodone 2-0 Yes 1{tbl} Take [address] [facility] [address] [facility] -acetaminop 9-24 tablet by Ady es hen (NORCO 00:00: mouth Medica l 5-325) 00 every 4 Center 5-325 mg (four) per tablet hours as needed. Max Daily Amount: 6 tablets HYDROcodone 2-0 Yes 1{tbl} Take [address] [facility] -acetaminop 9-24 tablet by Ady es hen (NORCO 00:00: mouth Medica l 5-325) 00 every 4 Center 5-325 mg (four) per tablet hours as needed. Max Daily Amount: 6 tablets nitrofurant 2021-2021- No 100mg Q.5D Take [address] [facility] [address] [facility] oin, 03-17-14 capsule [facility]: 00:00 (100 mg Me dical l-monohydra 00 :00 total) by [facility], mouth 2 (MACROBID) (two) 100 MG times capsule daily. nitrofurant 0 2021- No 100mg Q.5D Take [address] [facility] oin, 03-17 11-14 [facility] 00:[facility]: 00:00 (100 mg Me dical l-monohydra 00 :00 total) by [facility], mouth 2 (MACROBID) (two) 100 MG times capsule daily. nitrofurant 2021-0 2021- No 100mg Q.5D Take [address] [facility] oin, 03-17-14 capsule [facility] 00:00: 00:00 (100 mg Me dical l-monohydra 00 :00 total) by [facility], mouth 2 (MACROBID) (two) 100 MG times capsule daily. ibuprofen 2021- No 400mg Take [address] [facility] (ADVIL,MOTR 03-17- tablet [facility] IN) 400 MG 00:00: 23:59 (400 mg Med ical tablet 00 :00 total) by Center mouth every 6 (six) hours as needed for up to 10 days. methocarbam 2021-0 2021- No 500mg Q.25D Take [address] oL 03-17- tablet [facility] (Robaxin) 00:00: 23:59 (500 mg Medi tyler 500 MG 00 :00 total) by Center tablet mouth 4 (four) times daily for 10 days. ibuprofen 2021-0 2021- No 400mg Take [address] [facility] (ADVIL,MOTR 03-17 10- tablet [facility] IN) 400 MG 00:00: 23:59 (400 mg Med ical tablet 00 :00 total) by Center mouth every 6 (six) hours as needed for up to 10 days. methocarbam 2021-0 2022- No 500mg Q.25D Take [address] oL 9-24 10-04 tablet [facility] (Robaxin) 00:00: 23:59 (500 mg Medi tyler 500 MG 00 :00 total) by Center tablet mouth 4 (four) times daily for 10 days. ibuprofen 2021- No 400mg Take [address] [facility] (ADVIL,MOTR 03-17 tablet [facility]) 400 MG 00:00: 23:59 (400 mg Med ical tablet 00 :00 total) by Center mouth every 6 (six) hours as needed for up to 10 days. methocarbam 2021- No 500mg Q.25D Take [address] oL 03-17 tablet [facility] (Robaxin) 00:00: 23:59 (500 mg Medi tyler 500 MG 00 :00 total) by Center tablet mouth 4 (four) times daily for 10 days. lamoTRIgine 2021- No 250mg QD Take [address] [facility] 250 mg TR24 03-15-22 mg by [facility] 01:30: 00:00 mouth Medical 29 :00 nightly . [place] lamoTRIgine 2021- No 250mg QD Take [address] [facility] 250 mg TR24 03-15-22 mg by [facility] 01:30: 00:00 mouth Medical 29 :00 nightly . [place] lamoTRIgine 2021- No 250mg QD Take [address] [facility] 250 mg TR24 -15 03-22 mg by [facility] 01:30: 00:00 mouth Medical 29 :00 nightly . [place] dextroamphe 2021- No Take by [facility] tamine-amph 03-15 mouth as Ady es etamine 5 01:29: 00:00 directed Med ical mg Tab 50 :00 In the Center afternoon. dextroamphe 0 2021- No Take by [facility] tamine-amph 03-15 mouth as Ady es etamine 5 01:29: 00:00 directed Med ical mg Tab 50 :00 In the Center afternoon. dextroamphe 2021- No Take by [facility] tamine-amph 03-15 mouth as Ady es etamine 5 01:29: 00:00 directed Med ical mg Tab 50 :00 In the [place] afternoon. LIALDA 1.2 2022-0 Yes [facility] gram EC 9-22 ity of tablet 00:00: [place] [facility] LIAA 1.2 2021-0 Yes [facility] gram EC 9-22 ity of tablet 00:00: [place] 00 [facility] LIALDA 1.2 2021-0 Yes Univers gram EC 9-22 ity of tablet 00:00: [place] 00 [facility] LIAA 1.2 2021-0 Yes Univers gram EC 9-22 ity of tablet 00:00: [place] 00 [facility] LIALDA 1.2 2021-0 Yes Univers gram EC 9-22 ity of tablet 00:00: [place] 00 [facility] LIALDA 1.2 2021-0 Yes Univers gram EC 9-22 ity of tablet 00:00: [place] 00 [facility] LIAA 1.2 2021-0 Yes Univers gram EC 9-22 ity of tablet 00:00: [place] [address] [facility] LIAA 1.2 2021-0 Yes Univers gram EC 9-22 ity of tablet 00:00: [place] 00 [facility] LIAA 1.2 2021-0 Yes Univers gram EC 9-22 ity of tablet 00:00: [place] [address] [facility] LIAA 1.2 2021-0 Yes Univers gram EC 9-22 ity of tablet 00:00: [place] [address] [facility] LIAA 1.2 2021-0 Yes Univers gram EC 9-22 ity of tablet 00:00: [place] [address] [facility] LIAA 1.2 2021-0 Yes Univers gram EC 9-22 ity of tablet 00:00: [place] [address] [facility] LIAA 1.2 2021-0 Yes Univers gram EC 9-22 ity of tablet 00:00: [place] [address] [facility] LIALDA 1.2 2021-0 Yes Univers gram EC 9-22 ity of tablet 00:00: [place] 00 [facility] LIALDA 1.2 2021-0 Yes Univers gram EC 9-22 ity of tablet 00:00: [place] [address] [facility] LIALDA 1.2 2021-0 Yes Univers gram EC 9-22 ity of tablet 00:00: [place] [facility] LIALDA 1.2 2021-0 Yes Univers gram EC 9-22 ity of tablet 00:00: [place] 00 [facility] LIALDA 1.2 2021-0 Yes Univers gram [...] gram EC 9-22 ity of tablet 00:00: [place] 00 [facility] propranoloL 2021-0 2021- No 20mg Q.[id number] Take [address] [facility] (INDERAL) 03-07 [id number] by mouth 3 [facility] 20 MG 16:36: 00:00 3D (three) Medical tablet 44 :00 times Center daily. propranoloL 2021-2021- No 20mg Q.[id number] Take [address] [facility] (INDERAL) 03-07 [id number] by mouth 3 [facility] 20 MG 16:36: 00:00 3D (three) Medical tablet 44 :00 times Center daily. propranoloL 2021-0 2021- No 20mg Q.[id number] Take [address] [facility] (INDERAL) 03-07 [id number] by mouth 3 [facility] 20 MG 16:36: 00:00 3D (three) Medical tablet 44 :00 times Center daily. fluticasone 2021-0 2021- No 1{puff} Inhale [address] [facility] -salmeterol -07 03- puff by Luke s (ADVAIR) 16:35: 00:00 mouth via Med ical 100-50 21 :00 inhaler Center mcg/dose every 12 diskus (twelve) inhaler hours. fluticasone 2021-0 2021- No 1{puff} Inhale [address] [facility] -salmeterol -07 03- puff by Luke s (ADVAIR) 16:35: 00:00 mouth via Med ical 100-50 21 :00 inhaler Center mcg/dose every 12 diskus (twelve) inhaler hours. fluticasone 2021-0 2021- No 1{puff} Inhale [address] [facility] -salmeterol -07 03- puff by Luke s (ADVAIR) 16:35: 00:00 mouth via Med ical 100-50 21 :00 inhaler Center mcg/dose every 12 diskus (twelve) inhaler hours. dexlansopra 2021-0 2021- No 60mg QD Take [address] [facility] zole 60 mg 03-07 by mouth Luke s capsule 16:34: 00:00 daily. Medical 27 :00 [place] dexlansopra 2021-0 2021- No 60mg QD Take [address] [facility] zole 60 mg 03-07 by mouth Luke s capsule 16:34: 00:00 daily. Medical 27 :00 [place] dexlansopra 2021-0 2- No 60mg QD Take [address] [facility] zole 60 mg 03-07 by mouth Luke s capsule 16:34: 00:00 daily. Medical 27 :00 [place] ascorbic 2021-0 2021- No 3000mg QD Take 3,[address] [facility] acid, 9-14 09-14 mg by [facility] vitamin C, 16:33: 00:00 mouth Medic al (VITAMIN C) 56 :00 daily. [place] 1000 MG tablet ascorbic 2021-0 2021- No 3000mg QD Take 3,[address] [facility] acid, -14 09-14 mg by [facility] vitamin C, 16:33: 00:00 mouth Medic al (VITAMIN C) 56 :00 daily. [place] 1000 MG tablet ascorbic 2021- No 3000mg QD Take 3,[address] [facility] acid, 9-14 09-14 mg by [facility] vitamin C, 16:33: 00:00 mouth Medic al (VITAMIN C) 56 :00 daily. Center 1000 MG tablet apixaban 2021- No 5mg Q.5D Take [address] [facility] (ELIQUIS) 5 9-14 09-14 by mouth 2 [facility] mg Tab 16:33: 00:00 (two) Medical tablet 29 :00 times Center daily. apixaban 0 2021- No 5mg Q.5D Take [address] [facility] (ELIQUIS) 5 9-14 09-14 by mouth 2 [facility] mg Tab 16:33: 00:00 (two) Medical tablet 29 :00 times Center daily. apixaban 0 2021- No 5mg Q.5D Take [address] [facility] (ELIQUIS) 5 9-14 09-14 by mouth 2 [facility] mg Tab 16:33: 00:00 (two) Medical tablet 29 :00 times Center daily. fluticasone 0 Yes 1{puff} Inhale 1 [facility] -salmeterol 9-14 Puff by MideoMe ge (ADVAIR) 11:58: mouth of 500-50 02 every 12 Medicin MCG/DOSE hours. e inhaler fluticasone 0 Yes 1{puff} Inhale 1 [facility] -salmeterol 9-14 Puff by MideoMe ge (ADVAIR) 11:58: mouth of 500-50 02 every 12 Medicin MCG/DOSE hours. e inhaler fluticasone 2021-0 Yes 1{puff} Inhale 1 [facility] -salmeterol 9-14 Puff by Colle ge (ADVAIR) 11:58: mouth of 500-50 02 every 12 Medicin MCG/DOSE hours. e inhaler fluticasone 2021-0 Yes 1{puff} Inhale 1 [facility] -salmeterol 9-14 Puff by Colle ge (ADVAIR) 11:58: mouth of 500-50 02 every 12 Medicin MCG/DOSE hours. e inhaler hydrocodone Yes [id number] 1{tbl} Take 1 [facility] -acetaminop 9-13 Tablet by Col lege hen (NORCO) 00:00: mouth of 5-325 mg 00 every 4 Medicin tablet hours as e needed for Pain. amphetamine 2021-0 Yes [id number] 1{tbl} Take 1 [facility] -dextroamph 9-13 Tablet by Col lege etamine 00:00: mouth of (ADDERALL, 00 daily. In Medi mari 15MG,) 15 the e MG tablet morning amphetamine 2021-0 Yes [id number] 1{tbl} Take 1 [facility] -dextroamph 9-13 Tablet by Col lege etamine 00:00: mouth of (ADDERALL, 00 daily. Medicin 5MG,) 5 MG Take in e tablet afternoon hydrOXYzine 2021-0 Yes [id number] 25mg Take 1 [facility] (ATARAX) 25 9-13 Tablet by Col lege MG tablet 00:00: mouth 3 of 00 times Medicin daily as e needed for Itching. trazodone 2021-0 Yes [id number] 100mg Take 1 [facility] (DESYREL) 9-13 Tablet by Colle ge 100 MG 00:00: mouth of tablet 00 nightly. Medicin e LamoTRIgine 2021-0 Yes [id number] 1{tbl} Take 1 [facility] 300 MG TB24 9-13 Tablet by Col lege 00:00: mouth of 00 daily. Medicin e hydrocodone 2021-0 Yes [id number] 1{tbl} Take 1 [facility] -acetaminop 9-13 Tablet by Col lege hen (NORCO) 00:00: mouth of 5-325 mg 00 every 4 Medicin tablet hours as e needed for Pain. amphetamine 2021-0 Yes [id number] 1{tbl} Take 1 [facility] -dextroamph 9-13 Tablet by Col lege etamine 00:00: mouth of (ADDERALL, 00 daily. In Medi mari 15MG,) 15 the e MG tablet morning amphetamine 2021-0 Yes [id number] 1{tbl} Take 1 [facility] -dextroamph 9-13 Tablet by Col lege etamine 00:00: mouth of (ADDERALL, 00 daily. Medicin 5MG,) 5 MG Take in e tablet afternoon hydrOXYzine 2021-0 Yes [id number] 25mg Take 1 [facility] (ATARAX) 25 9-13 Tablet by Col lege MG tablet 00:00: mouth 3 of 00 times Medicin daily as e needed for Itching. trazodone 2021-0 Yes [id number] 100mg Take 1 [facility] (DESYREL) 9-13 Tablet by Colle ge 100 MG 00:00: mouth of tablet 00 nightly. Medicin e LamoTRIgine 2021-0 Yes [id number] 1{tbl} Take 1 [facility] 300 MG TB24 9-13 Tablet by Col lege 00:00: mouth of 00 daily. Medicin e hydrocodone Yes 1{tbl} Take 1 [facility] -acetaminop 9-13 Tablet by Col [facility]ge hen (NORCO) 00:00: mouth of 5-325 mg 00 every 4 Medicin tablet hours as e needed for Pain. amphetamine Yes [id number] 1{tbl} Take 1 [facility] -dextroamph 9-13 Tablet by Col lege etamine 00:00: mouth of (ADDERALL, 00 daily. In Medi mari 15MG,) 15 the e MG tablet morning amphetamine Yes [id number] 1{tbl} Take 1 [facility] -dextroamph 9-13 Tablet by Col lege etamine 00:00: mouth of (ADDERALL, 00 daily. Medicin 5MG,) 5 MG Take in e tablet afternoon hydrOXYzine Yes [id number] 25mg Take 1 [facility] (ATARAX) 25 9-13 Tablet by Col lege MG tablet 00:00: mouth 3 of 00 times Medicin daily as e needed for Itching. trazodone 2021-0 Yes [id number] 100mg Take 1 [facility] (DESYREL) 9-13 Tablet by Colle ge 100 MG 00:00: mouth of tablet 00 nightly. Medicin e LamoTRIgine 2021- Yes [id number] 1{tbl} Take 1 [facility] 300 MG TB24 9-13 Tablet by Col lege 00:00: mouth of 00 daily. Medicin e hydrocodone 2021-0 Yes [id number] 1{tbl} Take 1 [facility] -acetaminop 9-13 Tablet by [facility]ge hen (NORCO) 00:00: mouth of 5-325 mg 00 every 4 Medicin tablet hours as e needed for Pain. amphetamine 2022-0 Yes [id number] 1{tbl} Take 1 [facility] -dextroamph 9-13 Tablet by Col lege etamine 00:00: mouth of (ADDERALL, 00 daily. In Medi mari 15MG,) 15 the e MG tablet morning amphetamine 2021-0 Yes [id number] 1{tbl} Take 1 [facility] -dextroamph 9-13 Tablet by Col lege etamine 00:00: mouth of (ADDERALL, 00 daily. Medicin 5MG,) 5 MG Take in e tablet afternoon hydrOXYzine 2021-0 Yes [id number] 25mg Take 1 [facility] (ATARAX) 25 9-13 Tablet by Col lege MG tablet 00:00: mouth 3 of 00 times Medicin daily as e needed for Itching. trazodone 2021-0 Yes [id number] 100mg Take 1 [facility] (DESYREL) 9-13 Tablet by Colle ge 100 MG 00:00: mouth of tablet 00 nightly. Medicin e LamoTRIgine 2021-0 Yes [id number] 1{tbl} Take 1 [facility] 300 MG TB24 9-13 Tablet by Col lege 00:00: mouth of 00 daily. Medicin e hydrOXYzine 2021-0 Yes [id number] 25mg Take 1 [facility] (ATARAX) 25 9-13 Tablet by Col lege MG tablet 00:00: mouth 3 of 00 times Medicin daily as e needed for Itching. trazodone 2021-0 Yes [id number] 100mg Take 1 [facility] (DESYREL) 9-13 Tablet by Colle ge 100 MG 00:00: mouth of tablet 00 nightly. Medicin e LamoTRIgine 2021-0 Yes [id number] 1{tbl} Take 1 [facility] 300 MG TB24 9-13 Tablet by Col lege 00:00: mouth of 00 daily. Medicin e hydrOXYzine 2021-0 Yes [id number] 25mg Take 1 [facility] (ATARAX) 25 9-13 Tablet by Col lege MG tablet 00:00: mouth 3 of 00 times Medicin daily as e needed for Itching. trazodone 2-0 Yes [id number] 100mg Take 1 [facility] (DESYREL) 9-13 Tablet by Colle ge 100 MG 00:00: mouth of tablet 00 nightly. Medicin e LamoTRIgine 2021-0 Yes [id number] 1{tbl} Take 1 [facility] 300 MG TB24 9-13 Tablet by Col lege 00:00: mouth of 00 daily. Medicin e hydrOXYzine 2021-0 Yes [id number] 25mg Take 1 [facility] (ATARAX) 25 9-13 Tablet by Col lege MG tablet 00:00: mouth 3 of 00 times Medicin daily as e needed for Itching. trazodone 2021-0 Yes [id number] 100mg Take 1 [facility] (DESYREL) 9-13 Tablet by Colle ge 100 MG 00:00: mouth of tablet 00 nightly. Medicin e LamoTRIgine 2021- Yes [id number] 1{tbl} Take 1 [facility] 300 MG TB24 9-13 Tablet by Col lege 00:00: mouth of 00 daily. Medicin e hydrOXYzine 2021- Yes [id number] 25mg Take 1 [facility] (ATARAX) 25 9-13 Tablet by Col lege MG tablet 00:00: mouth 3 of 00 times Medicin daily as e needed for Itching. trazodone 2021-0 Yes [id number] 100mg Take 1 [facility] (DESYREL) 9-13 Tablet by Colle ge 100 MG 00:00: mouth of tablet 00 nightly. Medicin e LamoTRIgine Yes [id number] 1{tbl} Take 1 [facility] 300 MG TB24 9-13 Tablet by Col lege 00:00: mouth of 00 daily. Medicin e hydrocodone 2021- No [id number] 1{tbl} Take 1 [facility] -acetaminop 9-13 10-13 Tablet by Co llege hen (NORCO) 00:00: 00:00 mouth of 5-325 mg 00 :00 every 4 Medicin tablet hours as e needed for Pain. amphetamine 2021- No [id number] 1{tbl} Take 1 [facility] -dextroamph 9-13 10-13 Tablet by Co llege etamine 00:00: 00:00 mouth of (ADDERALL, 00 :00 daily. In Medi mari 15MG,) 15 the e MG tablet morning amphetamine 2021- No [id number] 1{tbl} Take 1 [facility] -dextroamph 9-05 04-13 Tablet by Co sally etamine 00:00: 00:00 mouth of (ADDERALL, 00 :00 daily. Medicin 5MG,) 5 MG Take in e tablet afternoon HYDROcodone 2021- No 1{tbl} Take [address] -acetaminop -03-17 tablet by Jaskaran aguilar (NORCO 00:00: 00:00 mouth Medic al 5-325) 00 :00 every 4 Center 5-325 mg (four) per tablet hours as needed. HYDROcodone 2021- No 1{tbl} Take [address] -acetaminop 9-13 03-17 tablet by Jaskaran aguilar (NORCO 00:00: 00:00 mouth Medic al 5-325) 00 :00 every 4 Center 5-325 mg (four) per tablet hours as needed. HYDROcodone 2021- No 1{tbl} Take [address] -acetaminop -03-17 tablet by Jaskaran aguilar (NORCO 00:00: 00:00 mouth Medic al 5-325) 00 :00 every 4 Center 5-325 mg (four) per tablet hours as needed. folic acid Yes 1000ug QD Take 1,[address] [facility] (FOLVITE) 1 9-11 mcg by [facility] MG tablet 00:00: mouth Medical 00 daily. [place] folic acid Yes 1000ug QD Take 1,[address] [facility] (FOLVITE) 1 9-11 mcg by [facility] MG tablet 00:00: mouth Medical 00 daily. [place] folic acid Yes 1000ug QD Take 1,[address] [facility] (FOLVITE) 1 9-11 mcg by [facility] MG tablet 00:00: mouth Medical 00 daily. Center baclofen 2021- No 10mg Q.[id number] Take [address] [facility] (LIORESAL) 03-04 [id number] by mouth 3 [facility] 10 MG 00:00: 00:00 3D (three) Medical tablet 00 :00 times Center daily. baclofen 2021- No 10mg Q.[id number] Take [address] [facility] (LIORESAL) 03-04 [id number] by mouth 3 [facility] 10 MG 00:00: 00:00 3D (three) Medical tablet 00 :00 times Center daily. baclofen 2021- No 10mg Q.[id number] Take [address] [facility] (LIORESAL) 03-04 [id number] by mouth 3 [facility] 10 MG 00:00: [...] 2021- No Take by [facility] (DELTASONE) 03-01 mouth as Ady es 10 MG 00:00: 23:59 directed Medical tablet 00 :00 Take 20 mg Center by mouth for 5 days and then take 10mg by mouth for 5 days. Medication , dose, and frequency confirmed and verified with the patient.. predniSONE 2021-2021- No Take by [facility] (DELTASONE) 03-01 mouth as Ady es 10 MG 00:00: 23:59 directed Medical tablet 00 :00 Take 20 mg Center by mouth for 5 days and then take 10mg by mouth for 5 days. Medication , dose, and frequency confirmed and verified with the patient.. predniSONE 2021-2021- No Take by [facility] (DELTASONE) 03-01 mouth as Ady es 10 MG 00:00: 23:59 directed Medical tablet 00 :00 Take 20 mg Center by mouth for 5 days and then take 10mg by mouth for 5 days. Medication , dose, and frequency confirmed and verified with the patient.. methylPREDN 2021-0 Yes Take as [place] [facility] ISolone 4 02-27 prescribed Deangelo ege MG TBPK 00:00: 00 Medicin e methylPREDN 2021-0 Yes Take as [place] [facility] ISolone 4 9-06 prescribed Deangelo ege MG TBPK 00:00: of 00 Medicin e methylPREDN 2022-0 Yes Take as [place] [facility] ISolone 4 9-06 prescribed Deangelo ege MG TBPK 00:00: of Medicin e methylPREDN 2022-0 Yes Take as [place] [facility] [facility] ISolone 4 9-06 prescribed Deangelo ege MG TBPK 00:00: of Medicin e methylPREDN 2022-0 Yes Take as [place] [facility] ISolone 4 9-06 prescribed Deangelo ege MG TBPK 00:00: of 00 Medicin e methylPREDN 2022-0 Yes Take as [place] [facility] ISolone 4 9-06 prescribed Deangelo ege MG TBPK 00:00: Medicin e methylPREDN 2022-0 Yes Take as [place] [facility] ISolone 4 9-06 prescribed Deangelo ege MG TBPK 00:00: of Medicin e methylPREDN 2022-0 Yes Take as [place] [facility] ISolone 4 9-06 prescribed Deangelo ege MG TBPK 00:00: Medicin e fluticasone 2-0 Yes 1{puff} Inhale 1 [facility] -salmeterol 8-31 Puff by Oralia sy (ADVAIR) 11:54: mouth of 500-50 34 every 12 Medicin MCG/DOSE hours. e inhaler cyclobenzap 0 Yes [facility] 5 mg 8-27 ity of tablet 00:00: [address] cyclobenzap 2021-0 Yes Univer s rine 5 mg 8-27 ity of tablet 00:00: [address] cyclobenzap 2021-0 Yes Univer s rine 5 mg 8-27 ity of tablet 00:00: [address] Branch cyclobenzap 2021-0 Yes Univer s rine 5 mg 8-27 ity of tablet 00:00: [address] cyclobenzap 2021-0 Yes Univer s rine 5 mg 8-27 ity of tablet 00:00: [address] cyclobenzap 2021-0 Yes Univer s rine 5 mg 8-27 ity of tablet 00:00: [address] cyclobenzap 2021-0 Yes Univer s rine 5 mg 8-27 ity of tablet 00:00: [address] cyclobenzap 2021-0 Yes Univer s rine 5 mg 8-27 ity of tablet 00:00: [place] [facility] cyclobenzap 2021-0 Yes Un[facility] s rine 5 mg 8-27 ity of tablet 00:00: [place] 00 [facility] cyclobenzap 2021-0 Yes Un[facility] s rine 5 mg 8-27 ity of tablet 00:00: [place] 00 [facility] cyclobenzap 2021-0 Yes Un[facility] s rine 5 mg 8-27 ity of tablet 00:00: [place] 00 [facility] cyclobenzap 2021-0 Yes Un[facility] s rine 5 mg 8-27 ity of tablet 00:00: [place] [address] [facility] Branch cyclobenzap 2021-0 Yes Univer s rine 5 mg 8-27 ity of tablet 00:00: [place] [address] [facility] Branch cyclobenzap 2021-0 Yes Un[facility] s rine 5 mg 8-27 ity of tablet 00:00: [place] [address] [facility] Branch cyclobenzap 2021-0 Yes Un[facility] rine 5 mg 8-27 ity of tablet 00:00: [place] [address] [facility] Branch cyclobenzap 2021-0 Yes [facility]ine 5 mg 8-27 ity of tablet 00:00: [place] [address] [facility] Branch cyclobenzap 2021-0 Yes [facility]ine 5 mg 8-27 ity of tablet 00:00: [place] [address] [facility] Branch cyclobenzap 2021-0 Yes [facility]ine 5 mg 8-27 ity of tablet 00:00: [place] [address] [facility] Branch cyclobenzap 2021-0 Yes [facility]ine 5 mg 8-27 ity of tablet 00:00: [place] 00 [facility] cyclobenzap 2021-0 Yes [facility] rine 5 mg 8-27 ity of tablet 00:00: [place] [address] [facility] Branch cyclobenzap 2021-0 Yes Un[facility] rine 5 mg 8-27 ity of tablet 00:00: [place] [address] [facility] Branch cyclobenzap 2021-0 Yes [facility] rine 5 mg 8-27 ity of tablet 00:00: [place] 00 [facility] cyclobenzap 2021-0 Yes [facility]ine 5 mg 8-27 ity of tablet 00:00: [place] [address] [facility] cyclobenzap 2021-0 Yes [facility] 5 mg 8-27 ity of tablet 00:00: [place] [address] [facility] cyclobenzap 2-0 Yes [facility] 5 mg 8-27 ity of tablet 00:00: [place] [address] [facility] Branch cyclobenzap 2021-0 Yes [facility] 5 mg 8-27 ity of tablet 00:00: [place] [facility] cyclobenzap 2021-0 Yes [facility]ine 5 mg 8-27 ity of tablet 00:00: [place] [address] [facility] cyclobenzap 2021-0 Yes [facility] rine 5 mg 8-27 ity of tablet 00:00: [place] [address] [facility] Branch cyclobenzap 2021-0 Yes [facility] 8-27 [place] ([facility]) 00:00: of 5 MG tablet 00 Medicin e cyclobenzap 2021-0 Yes [facility] 8-27 [place] ([facility]) 00:00: of 5 MG tablet 00 Medicin e cyclobenzap 2021-0 Yes [facility] 827 [facility]) 00:00: of 5 MG tablet 00 Medicin e cyclobenzap 2021-0 Yes [facility] 8-27 [place] ([facility]) 00:00: of 5 MG tablet 00 Medicin e cyclobenzap 2021-0 Yes [facility] 8-27 [place] ([facility]) 00:00: of 5 MG tablet 00 Medicin e cyclobenzap 2021-0 Yes [facility] 8-27 [place] ([facility]) 00:00: of 5 MG tablet 00 Medicin e cyclobenzap 2021-0 Yes [facility] 8-27 [facility]) 00:00: of 5 MG tablet 00 Medicin e cyclobenzap 2021-0 Yes [facility] 8-27 [place] ([facility]) 00:00: of 5 MG tablet 00 Medicin e methylPREDN 2021-0 2- No Take as [facility] ISolone 4 02-16 prescribed Col lege MG TBPK 00:00: 00:00 of 00 :00 Medicin e midodrine 2-0 Yes 2.5 mg po [place] [facility] (PROAMATINE 02-12 qam and at [facility] ) 2.5 MG 00:00: noon x 1 of tablet 00 week Medicin followed e by 5 mg po qam and q noon from then on. Patient clarified that she had an adverse reaction to Aprodine and not an allergic reaction. fluconazole 2022-0 Yes 100mg Take 1 [place] [facility] (DIFLUCAN) 8-22 Tablet by Deangelo ege 100 MG 00:00: mouth of tablet 00 daily. Medicin e nystatin 2022-0 Yes [id number] Take 1 mL [facility] (MYCOSTATIN 8-22 by mouth Deangelo ege ) [id number] 00:00: four times of UNIT/ML 00 daily. Medicin suspension e midodrine 2022-0 Yes 2.5 mg po [place] [facility] (PROAMATINE 8-22 qam and at [facility] ) 2.5 MG 00:00: noon x 1 of tablet 00 week Medicin followed e by 5 mg po qam and q noon from then on. Patient clarified that she had an adverse reaction to Aprodine and not an allergic reaction. fluconazole 2022-0 Yes 100mg Take 1 [place] [facility] (DIFLUCAN) 8-22 Tablet by Deangelo ege 100 MG 00:00: mouth of tablet 00 daily. Medicin e nystatin 2022-0 Yes [id number] Take 1 mL [facility] (MYCOSTATIN 8-22 by mouth Deangelo ege ) [id number] 00:00: four times of UNIT/ML 00 daily. Medicin suspension e midodrine 2022-0 Yes 2.5 mg po [place] [facility] (PROAMATINE 8-22 qam and at [facility] ) 2.5 MG 00:00: noon x 1 of tablet 00 week Medicin followed e by 5 mg po qam and q noon from then on. Patient clarified that she had an adverse reaction to Aprodine and not an allergic reaction. fluconazole 2022-0 Yes 100mg Take 1 [place] [facility] (DIFLUCAN) 8-22 Tablet by Deangelo ege 100 MG 00:00: mouth of tablet 00 daily. Medicin e nystatin 2022-0 Yes [id number] Take 1 mL [facility] (MYCOSTATIN 8-22 by mouth Deangelo ege ) [id number] 00:00: four times of UNIT/ML 00 daily. Medicin suspension e midodrine 2022-0 Yes 2.5 mg po [place] [facility] (PROAMATINE 8-22 qam and at [facility] ) 2.5 MG 00:00: noon x 1 of tablet 00 week Medicin followed e by 5 mg po qam and q noon from then on. Patient clarified that she had an adverse reaction to Aprodine and not an allergic reaction. fluconazole 2022-0 Yes 100mg Take 1 [place] [facility] (DIFLUCAN) 8-22 Tablet by Deangelo ege 100 MG 00:00: mouth of tablet 00 daily. Medicin e nystatin 2022-0 Yes [id number] Take 1 mL [facility] (MYCOSTATIN 8-22 by mouth Deangelo ege ) [id number] 00:00: four times of UNIT/ML 00 daily. Medicin suspension e midodrine 2022-0 Yes 2.5 mg po [place] [facility] (PROAMATINE 8-22 qam and at [facility] ) 2.5 MG 00:00: noon x 1 of tablet 00 week Medicin followed e by 5 mg po qam and q noon from then on. Patient clarified that she had an adverse reaction to Aprodine and not an allergic reaction. fluconazole 2022-0 Yes 100mg Take 1 [facility] [facility] (DIFLUCAN) 8-22 Tablet by [facility] 100 MG 00:00: mouth of tablet 00 daily. Medicin e nystatin 2022-0 Yes [id number] Take 1 mL [facility] (MYCOSTATIN 8-22 by mouth [facility] e[facility] ) [id number] 00:00: four times of UNIT/ML 00 daily. Medicin suspension e midodrine 2-0 Yes 2.5 mg po [facility] [facility] (PROAMATINE 8-22 qam and at [facility] ) 2.5 MG 00:00: noon x 1 of tablet 00 week Medicin followed e by 5 mg po qam and q noon from then on. Patient clarified that she had an adverse reaction to Aprodine and not an allergic reaction. nystatin 2022-0 Yes [id number] Take 1 mL [facility] (MYCOSTATIN 8-22 by mouth [facility] ) [id number] 00:00: four times of UNIT/ML 00 daily. Medicin suspension e midodrine 2022-0 Yes 2.5 mg po [facility] [facility] (PROAMATINE 8-22 qam and at [facility] ) 2.5 MG 00:00: noon x 1 of tablet 00 week Medicin followed e by 5 mg po qam and q noon from then on. Patient clarified that she had an adverse reaction to Aprodine and not an allergic reaction. nystatin 2022-0 Yes [id number] Take 1 mL [facility] (MYCOSTATIN 8-22 by mouth [facility] ) [id number] 00:00: four times of UNIT/ML 00 daily. Medicin suspension e midodrine 2021-0 Yes 2.5 mg po [facility] [facility] (PROAMATINE 8-22 qam and at [facility] ) 2.5 MG 00:00: noon x 1 of tablet 00 week Medicin followed e by 5 mg po qam and q noon from then on. Patient clarified that she had an adverse reaction to Aprodine and not an allergic reaction. nystatin 2021-0 Yes [id number] Take 1 mL [facility] (MYCOSTATIN 8-22 by mouth [facility] e[facility] ) [id number] 00:00: four times of UNIT/ML 00 daily. Medicin suspension e midodrine 2021-0 Yes 2.5 mg po [facility] [facility] (PROAMATINE 8-22 qam and at [facility] ) 2.5 MG 00:00: noon x 1 of tablet 00 week Medicin followed e by 5 mg po qam and q noon from then on. Patient clarified that she had an adverse reaction to Aprodine and not an allergic reaction. nystatin 2021-0 Yes [id number] Take 1 mL [facility] (MYCOSTATIN 8-22 by mouth De[facility] e[facility] ) [id number] 00:00: four times of UNIT/ML 00 daily. Medicin suspension e midodrine 2021-0 Yes 2.5mg Q.5D Take 2.[address] [facility] ([facility]ATINE 8[facility]22 [facility] ) 2.5 MG 00:00: mouth 2 Medica l tablet 00 (two) Center times daily Patient stated "I take midodrine 2.5mg by mouth in the am and at noon everyday." . midodrine 2021-0 Yes 2.5mg Q.5D Take 2.[address] [facility] (PROAMATINE 8-22 mg by [facility] ) 2.5 MG 00:00: mouth 2 Medica l tablet 00 (two) Center times daily Patient stated "I take midodrine 2.5mg by mouth in the am and at noon everyday." . midodrine 2-0 Yes 2.5mg Q.5D Take 2.[address] [facility] (PROAMATINE 8-22 mg by [facility] ) 2.5 MG 00:00: mouth 2 Medica l tablet 00 (two) Center times daily Patient stated "I take midodrine 2.5mg by mouth in the am and at noon everyday." . fluconazole 2021-0 2022- No 100mg Take 1 [facility] (DIFLUCAN) 8-22 10-13 Tablet by [facility] 100 MG 00:00: 00:00 mouth of tablet 00 :00 daily. Medicin e metoprolol 2021-0 Yes 25mg Q.5D Take [address] [facility] tartrate 8-21 by mouth 2 [facility] (LOPRESSOR) 00:00: (two) Medic al 25 MG 00 times Center tablet daily. leflunomide 2021-0 Yes 10mg QD Take [address] [facility] (ARAVA) 10 8-21 by mouth [facility] tablet 00:00: daily. Medica l 00 [place] metoprolol 2021-0 Yes 25mg Q.5D Take [address] tartrate 8-21 by mouth 2 [facility] (LOPRESSOR) 00:00: (two) Medic al 25 MG 00 times Center tablet daily. leflunomide 2021-0 Yes 10mg QD Take [address] [facility] (ARAVA) 10 8-21 by mouth [facility] tablet 00:00: daily. Medica l 00 [place] metoprolol 2021-0 Yes 25mg Q.5D Take [address] tartrate 8-21 by mouth 2 [facility] (LOPRESSOR) 00:00: (two) Medic al 25 MG 00 times Center tablet daily. leflunomide 2021-0 Yes 10mg QD Take [address] [facility] (ARAVA) 10 8-21 by mouth [facility] tablet 00:00: daily. Medica l 00 [place] baclofen 10 2021-0 Yes 10mg Take 10 mg [facility] 8-18 by mouth. [facility] f 00:00: [address] baclofen 10 2021-0 Yes 10mg Take 10 mg [facility] mg tablet 8-18 by mouth. ity o f 00:00: [address] baclofen 10 2021-0 Yes 10mg Take 10 mg [facility] mg tablet 8-18 by mouth. ity o f 00:00: [address] baclofen 10 2021-0 Yes 10mg Take 10 mg [facility] mg tablet 8-18 by mouth. ity o f 00:00: [address] baclofen 10 2021-0 Yes 10mg Take 10 mg [facility] mg tablet 8-18 by mouth. ity o f 00:00: [facility] baclofen 10 2021-0 Yes 10mg Take 10 mg [facility] mg tablet 8-18 by mouth. ity o f 00:00: [facility] baclofen 10 2021-0 Yes 10mg Take 10 mg [facility] mg tablet 8-18 by mouth. ity o f 00:00: [facility] baclofen 10 2021-0 Yes 10mg Take 10 mg [facility] mg tablet 8-18 by mouth. ity o f 00:00: [facility] baclofen 10 2021-0 Yes 10mg Take 10 mg [facility] mg tablet 8-18 by mouth. ity o f 00:00: [facility] baclofen 10 2021-0 Yes 10mg Take 10 mg [facility] mg tablet 8-18 by mouth. ity o f 00:00: [facility] baclofen 10 2021-0 Yes 10mg Take 10 mg [facility] mg tablet 8-18 by mouth. ity o f 00:00: [facility] baclofen 10 2021-0 Yes 10mg Take 10 mg [facility] mg tablet 8-18 by mouth. ity o f 00:00: [facility] baclofen 10 2021-0 Yes 10mg Take 10 mg [facility] mg tablet 8-18 by mouth. ity o f 00:00: [facility] baclofen 10 2021-0 Yes 10mg Take 10 mg [facility] mg tablet 8-18 by mouth. ity o f 00:00: [facility] baclofen 10 2021-0 Yes 10mg Take 10 mg [facility] mg tablet 8-18 by mouth. ity o f 00:00: [facility] baclofen 10 2021-0 Yes 10mg Take 10 mg [facility] mg tablet 8-18 by mouth. ity o f 00:00: [facility] baclofen 10 2021-0 Yes 10mg Take 10 mg [facility] mg tablet 8-18 by mouth. ity o f 00:00: [facility] baclofen 10 2021-0 Yes 10mg Take 10 mg [facility] mg tablet 8-18 by mouth. ity o f 00:00: [facility] baclofen 10 2021-0 Yes 10mg Take 10 mg [facility] mg tablet 8-18 by mouth. ity o f 00:00: [facility] baclofen 10 2021-0 Yes 10mg Take 10 mg [facility] mg tablet 8-18 by mouth. ity o f 00:00: [facility] baclofen 10 2021-0 Yes 10mg Take 10 mg [facility] mg tablet 8-18 by mouth. ity o f 00:00: [facility] baclofen 10 2021-0 Yes 10mg Take 10 mg [facility] mg tablet 8-18 by mouth. ity o f 00:00: [facility] baclofen 10 2021-0 Yes 10mg Take 10 mg [facility] mg tablet 8-18 by mouth. ity o f 00:00: [facility] baclofen 10 2021-0 Yes 10mg Take 10 mg [facility] mg tablet 8-18 by mouth. ity o f 00:00: [facility] baclofen 10 2021-0 Yes 10mg Take 10 mg [facility] mg tablet 8-18 by mouth. ity o f 00:00: [facility] baclofen 10 2021-0 Yes 10mg Take 10 mg [facility] mg tablet 8-18 by mouth. ity o f 00:00: [facility] baclofen 10 2021-0 Yes 10mg Take 10 mg [facility] mg tablet 8-18 by mouth. ity o f 00:00: [facility] baclofen 10 2021-0 Yes 10mg Take 10 mg [facility] mg tablet 8-18 by mouth. ity o f 00:00: [facility] baclofen 2021-0 Yes [id number] 10mg Take 1 [place] [facility] (LIORESAL) 8-18 Tablet by Deangelo ege 10 MG 00:00: mouth 3 of tablet 00 times Medicin daily as e needed for Pain. baclofen 2021-0 Yes [id number] 10mg Take 1 [place] [facility] (LIORESAL) 8-18 Tablet by De[facility]o ege 10 MG 00:00: mouth 3 of tablet 00 times Medicin daily as e needed for Pain. Fosfomycin 2021-0 Yes [facility] Tromethamin 8-18 [facility] e 3 g PACK 00:00: of 00 Medicin e baclofen 2-0 Yes [id number] 10mg Take 1 [place] [facility] (LIORESAL) 8-18 Tablet by Deangelo ege 10 MG 00:00: mouth 3 of tablet 00 times Medicin daily as e needed for Pain. Fosfomycin 2021-0 Yes [facility] Tromethamin 8-18 College e 3 g PACK 00:00: of 00 Medicin e baclofen 2021-0 Yes [id number] 10mg Take 1 [place] [facility] (LIORESAL) 8-18 Tablet by Deangelo ege 10 MG 00:00: mouth 3 of tablet 00 times Medicin daily as e needed for Pain. Fosfomycin 2021-0 Yes [facility] Tromethamin 8-18 [facility] e 3 g PACK 00:00: of 00 Medicin e baclofen 2021-0 Yes [id number] 10mg Take 1 [place] [facility] (LIORESAL) 8-18 Tablet by Deangelo ege 10 MG 00:00: mouth 3 of tablet 00 times Medicin daily as e needed for Pain. Fosfomycin 2021-0 Yes [facility] Tromethamin 8-18 [facility] e 3 g PACK 00:00: of 00 Medicin e baclofen 2021-0 2- No [id number] 10mg Take 1 [facility] (LIORESAL) 8-18 10-14 Tablet by [facility] 10 MG 00:00: 00:00 mouth 3 of tablet 00 :00 times Medicin daily as e needed for Pain. Fosfomycin 2021-0 2021- No [facility] Tromethamin 8-18 10-13 College e 3 g PACK 00:00: 00:00 of 00 :00 Medicin e amphetamine 2021-0 Yes [id number] 1{tbl} Take 1 [facility] -dextroamph 8-16 Tablet by [facility] etamine 00:00: mouth of (ADDERALL, 00 daily. In Medi mari 15MG,) 15 the e MG tablet morning amphetamine 2021-0 Yes [id number] 1{tbl} Take 1 [facility] -dextroamph 8-16 Tablet by [facility] etamine 00:00: mouth of (ADDERALL, 00 daily. Medicin 5MG,) 5 MG Take in e tablet afternoon amphetamine 2021-0 2021- No [id number] 1{tbl} Take 1 [facility] -dextroamph 8-16 09-13 Tablet by [facility] etamine 00:00: 00:00 mouth of (ADDERALL, 00 :00 daily. In Medi mari 15MG,) 15 the e MG tablet morning amphetamine 2021-0 2021- No [id number] 1{tbl} Take 1 [facility] -dextroamph 16 03-06 Tablet by Co [facility]ally pearl 00:00: 00:00 mouth of (ADDERALL, 00 :00 daily. Medicin 5MG,) 5 MG Take in e tablet afternoon penicillin Yes [facility] v potassium 8-15 College (VEETID) 00:00: of 500 MG 00 Medicin tablet e penicillin 0 Yes [facility] v potassium 8-15 [facility] (VEETID) 00:00: of 500 MG 00 Medicin tablet e penicillin 0 Yes [facility] v potassium 8-15 [facility] (VEETID) 00:00: of 500 MG 00 Medicin tablet e penicillin 0 Yes [facility] v potassium 8-15 [facility] (VEETID) 00:00: of 500 MG 00 Medicin tablet e penicillin No [facility] v potassium 8-15 04-05 [facility] (VEETID) 00:00: 00:00 of 500 MG 00 :00 Medicin tablet e fluticasone Yes 1{puff} Inhale 1 [facility] -salmeterol -03 Puff by [employer] (ADVAIR) 11:13: mouth of 500-50 01 every 12 Medicin MCG/DOSE hours. e inhaler fluticasone Yes 1{puff} Inhale 1 [facility] -salmeterol 8-03 Puff by [employer] (ADVAIR) 11:13: mouth of 500-50 01 every 12 Medicin MCG/DOSE hours. e inhaler pyridostigm Yes 1/2 tablet [facility] ine 01-22 pot tid x College (MESTINON) 00:00: 1 week of 60 MG 00 then 60 mg Medicin tablet po bid for e 1 week then 60 mg tid metronidazo Yes [facility] le (FLAGYL) 01-22 [place] 500 MG 00:00: of tablet 00 Medicin e metronidazo Yes [facility] le (FLAGYL) 01-22 [place] 500 MG 00:00: of tablet 00 Medicin e metronidazo 0 Yes [facility] lamberto (FLAGYL) 01-22 [place] 500 MG 00:00: of tablet 00 Medicin e metronidazo Yes [facility] lamberto (FLAGYL) 01-22 [place] 500 MG 00:00: of tablet 00 Medicin e metronidazo 2021-0 Yes [facility] (FLAGYL) 01-22 [place] 500 MG 00:00: of tablet 00 Medicin e pyridostigm 2021-0 Yes 1/2 tablet [facility] bloom 01-22 pot tid x [place] ([facility]) 00:00: 1 week of 60 MG 00 then 60 mg Medicin tablet po bid for e 1 week then 60 mg tid pyridostigm 2021-0 Yes 1/2 tablet [facility] ine 01-22 pot tid x [place] ([facility]) 00:00: 1 week of 60 MG 00 then 60 mg Medicin tablet po bid for e 1 week then 60 mg tid metronidazo 2021-0 Yes [facility] (FLAGYL) 01-22 [place] 500 MG 00:00: of tablet 00 Medicin e pyridostigm 2021-0 Yes 1/2 tablet [facility] bloom 01-22 pot tid x [place] ([facility]) 00:00: 1 week of 60 MG 00 then 60 mg Medicin tablet po bid for e 1 week then 60 mg tid metronidazo 2021-0 2- No [facility] (FLAGYL) 01-22 [place] 500 MG 00:00: 00:00 of tablet 00 :00 Medicin e pyridostigm 2021-0 2- No 1/2 tablet [facility] bloom 01-22 pot tid x [place] ([facility]) 00:00: 00:00 1 week of 60 MG 00 :00 then 60 mg Medicin tablet po bid for e 1 week then 60 mg tid metronidazo 2021-0 2021- No 500mg Take 500 [facility] le (YL) 01-22 mg by Colleg e 500 MG 00:00: 04:59 mouth. of tablet 00 :00 Medicin e LIALDA 1.2 2021-0 Yes [facility] tran [facility] 01-20 [place] 00:00: of 00 Medicin e LIALDA 1.2 2021-0 Yes [facility] tran [facility] 01-20 [place] 00:00: of 00 Medicin e LIALDA 1.2 2021-0 Yes [facility] tran [facility] 01-20 [place] 00:00: of 00 Medicin e LIALDA 1.2 2021-0 Yes [facility] 01-20 [place] 00:00: of 00 Medicin e LIALDA 1.2 2021-0 Yes [facility] 01-20 [place] 00:00: of Medicin e LIALDA 1.2 2021- Yes [facility] 01-20 [place] 00:00: of 00 Medicin e LIALDA 1.2 2021-0 Yes [facility] 01-20 [place] 00:00: of 00 Medicin e LIALDA 1.2 2021-0 Yes [facility] 01-20 [place] 00:00: of 00 Medicin e LIALDA 1.2 2021- Yes [facility] 01-20 [place] 00:00: of 00 Medicin e LIALDA 1.2 2021- Yes [facility] 01-20 [place] 00:00: of 00 Medicin e metoprolol Yes [id number] 25mg Take 1 [facility] (LOPRESSOR) 7-27 Tablet by [facility] 25 MG 00:00: mouth two of tablet 00 times Medicin daily. e metoprolol Yes [id number] 25mg Take 1 [facility] (LOPRESSOR) 7-27 Tablet by [facility] 25 MG 00:00: mouth two of tablet 00 times Medicin daily. e metoprolol Yes [id number] 25mg Take 1 [facility] (LOPRESSOR) 7-27 Tablet by [facility] 25 MG 00:00: mouth two of tablet 00 times Medicin daily. e metoprolol 0 Yes [id number] 25mg Take 1 [facility] (LOPRESSOR) 7-27 Tablet by [facility] 25 MG 00:00: mouth two of tablet 00 times Medicin daily. e metoprolol 0 Yes [id number] 25mg Take 1 [facility] (LOPRESSOR) 7-27 Tablet by [facility] 25 MG 00:00: mouth two of tablet 00 times Medicin daily. e metoprolol 0 Yes [id number] 25mg Take 1 [facility] (LOPRESSOR) 7-27 Tablet by [facility] 25 MG 00:00: mouth two of tablet 00 times Medicin daily. e metoprolol 0 Yes [id number] 25mg Take 1 [facility] (LOPRESSOR) 7-27 Tablet by [facility] 25 MG 00:00: mouth two of tablet 00 times Medicin daily. e metoprolol 2022-0 Yes [id number] 25mg Take 1 [facility] (LOPRESSOR) 7-27 Tablet by [facility] 25 MG 00:00: mouth two of tablet 00 times Medicin daily. e metoprolol 2022-0 Yes [id number] 25mg Take 1 [facility] (LOPRESSOR) 7-27 Tablet by [facility] 25 MG 00:00: mouth two of tablet 00 times Medicin daily. e metoprolol 2022-0 Yes [id number] 25mg Take 1 [facility] (LOPRESSOR) 7-27 Tablet by [facility] 25 MG 00:00: mouth two of tablet 00 times Medicin daily. e metoprolol 2022-0 Yes [id number] 25mg Take 1 [facility] (LOPRESSOR) 7-27 Tablet by [facility] 25 MG 00:00: mouth two of tablet 00 times Medicin daily. e metoprolol 2022-0 Yes [id number] 25mg Take 1 [facility] (LOPRESSOR) 7-27 Tablet by [facility] 25 MG 00:00: mouth two of tablet 00 times Medicin daily. e triamcinolo 2-0 Yes [facility] topically. [place] (ARISTOCORT 00:00: of ) 0.5 % 00 Medicin cream e triamcinolo 2-0 Yes [facility] ne 7-26 [place] (ARISTOCORT 00:00: of ) 0.5 % 00 Medicin cream e triamcinolo 2-0 Yes Apply [facility] topically. [place] (ARISTOCORT 00:00: of ) 0.5 % 00 Medicin cream e triamcinolo 2022-0 Yes [facility] ne 7-26 [place] (ARISTOCORT 00:00: of ) 0.5 % 00 Medicin cream e triamcinolo 2-0 Yes Apply [facility] topically. [place] (ARISTOCORT 00:00: of ) 0.5 % 00 Medicin cream e triamcinolo 2022-0 Yes [facility] ne 7-26 [place] (ARISTOCORT 00:00: of ) 0.5 % 00 Medicin cream e triamcinolo 2-0 Yes Apply [facility] topically. [place] (ARISTOCORT 00:00: of ) 0.5 % 00 Medicin cream e triamcinolo 2-[address] [facility] 7- [place] (ARISTOCORT 00:00: of ) 0.5 % 00 Medicin cream e triamcinolo 2-0 Yes Apply [facility] topically. [place] (ARISTOCORT 00:00: of ) 0.5 % 00 Medicin cream e triamcinolo 2-0 Yes [facility] 7- [place] (ARISTOCORT 00:00: of ) 0.5 % 00 Medicin cream e triamcinolo 2021-0 Yes Apply [facility] topically. [place] (ARISTOCORT 00:00: of ) 0.5 % 00 Medicin cream e triamcinolo 2-0 Yes [facility] 7- [place] (ARISTOCORT 00:00: of ) 0.5 % 00 Medicin cream e triamcinolo 2021-0 Yes Apply [facility] topically. [place] (ARISTOCORT 00:00: of ) 0.5 % 00 Medicin cream e triamcinolo 2-0 Yes [facility] 7- [place] (ARISTOCORT 00:00: of ) 0.5 % 00 Medicin cream e triamcinolo 2021-0 Yes Apply [facility] topically. [place] (ARISTOCORT 00:00: of ) 0.5 % 00 Medicin cream e triamcinolo 2-0 Yes [facility] 7- [place] (ARISTOCORT 00:00: of ) 0.5 % 00 Medicin cream e triamcinolo 2-0 Yes Apply [facility] topically. [place] (ARISTOCORT 00:00: of ) 0.5 % 00 Medicin cream e triamcinolo 2021-0 Yes [facility] 7- [place] (ARISTOCORT 00:00: of ) 0.5 % 00 Medicin cream e Baclofen 2021-[id number] 10 [facility]OW[facility] 7-26 mg [place] 00:00: vaginally of 00 2 times Medicin daily as e needed. Please compound as vaginal suppositor y Baclofen 2022-[id number] 10 [facility] POWD -26 mg [place] 00:00: vaginally of 00 2 times Medicin daily as e needed. Please compound as vaginal suppositor y triamcinolo 2021-0 Yes Apply [facility] ne 01-16 topically. [place] (ARISTOCORT 00:00: of ) 0.5 % 00 Medicin cream e triamcinolo 2-0 Yes [facility] ne 01-16 [place] (ARISTOCORT 00:00: of ) 0.5 % 00 Medicin cream e Baclofen 2021-[id number] 10 [facility] POWD - mg [place] 00:00: vaginally of 00 2 times Medicin daily as e needed. Please compound as vaginal suppositor y mupirocin 2-0 Yes [id number] Apply to [facility] (BACTROBAN) 01-13 affected [facility] 2 % 00:00: area 2 x a of ointment day Medicin e mupirocin 2022-0 Yes [id number] Apply to [facility] (BACTROBAN) 01-13 affected [facility] 2 % 00:00: area 2 x a of ointment day Medicin e mupirocin 2022-0 Yes [id number] Apply to [facility] (BACTROBAN) 01-13 affected [facility] 2 % 00:00: area 2 x a of ointment day Medicin e mupirocin 2022-0 Yes [id number] Apply to [facility] (BACTROBAN) 01-13 affected [facility] 2 % 00:00: area 2 x a of ointment day Medicin e mupirocin 2022-0 Yes [id number] Apply to [facility] (BACTROBAN) 01-13 affected [facility] 2 % 00:00: area 2 x a of ointment day Medicin e mupirocin 2022-0 Yes [id number] Apply to [facility] (BACTROBAN) 01-13 affected [facility] 2 % 00:00: area 2 x a of ointment 00 day Medicin e mupirocin 2022-0 Yes [id number] Apply to [facility] (BACTROBAN) 01-13 affected [facility] 2 % 00:00: area 2 x a of ointment 00 day Medicin e mupirocin 2-0 Yes [id number] Apply to [facility] (BACTROBAN) 01-13 affected [facility] 2 % 00:00: area 2 x a of ointment 00 day Medicin e mupirocin 2022-0 Yes [id number] Apply to [facility] (BACTROBAN) 01-13 affected [facility] 2 % 00:00: area 2 x a of ointment day Medicin e mupirocin 2-0 Yes [id number] Apply to [facility] (BACTROBAN) 01-13 affected [facility] 2 % 00:00: area 2 x a of ointment day Medicin e mupirocin 2021-0 Yes [id number] Apply to [facility] (BACTROBAN) 01-13 affected [facility] 2 % 00:00: area 2 x a of ointment day Medicin e mupirocin 2021-0 Yes [id number] Apply to [facility] (BACTROBAN) 01-13 affected [facility] 2 % 00:00: area 2 x a of ointment day Medicin e albuterol 0 Yes INHALE ONE [facility] [...] Hydrocortis Yes 1{appli Apply 1 [facility] one, 7 cation} applicatio [facility], 00:00: n of (ANUSOL-HC) 00 topically Med icin 2.5 % CREA two times e daily. Albuterol Yes [id number] INHALE ONE [facility] Sulfate -19 6 TO TWO College (PROAIR 00:00: PUFFS BY of HFA) 108 00 MOUTH Medicin (90 Base) EVERY 6 e MCG/ACT HOURS AERS NEEDED FOR WHEEZING meclizine Yes [id number] 25mg Take 1 [facility] (ANTIVERT) 7-19 Tablet by [facility] 25 MG 00:00: mouth 3 of tablet 00 times Medicin daily as e needed for Dizziness. LamoTRIgine Yes [id number] 1{tbl} Take 1 [facility] 300 MG TB24 7-19 Tablet by [facility] 00:00: mouth of 00 daily. Medicin e hydrocortis 0 Yes [facility] one 2.5 % 7-19 College cream 00:00: of 00 Medicin e Hydrocortis 0 Yes 1{appli Apply 1 [facility] one, 7- cation} applicatio [facility], 00:00: n of (ANUSOL-HC) 00 topically Med icin 2.5 % CREA two times e daily. Albuterol 2022-0 Yes [id number] INHALE ONE [facility] Sulfate 7-19 6 TO TWO [facility] (PROAIR 00:00: PUFFS BY of HFA) 108 00 MOUTH Medicin (90 Base) EVERY 6 e MCG/ACT HOURS AERS NEEDED FOR WHEEZING meclizine 2021-0 Yes [id number] 25mg Take 1 [facility] (ANTIVERT) 7-19 Tablet by [facility] 25 MG 00:00: mouth 3 of tablet 00 times Medicin daily as e needed for Dizziness. hydrocortis 2021-0 Yes [facility] one 2.5 % 7-19 College cream 00:00: of 00 Medicin e Hydrocortis 2021-0 Yes 1{appli Apply 1 [facility] one, 7-19 cation} applicatio [facility], 00:00: n of (ANUSOL-HC) 00 topically Med icin 2.5 % CREA two times e daily. Albuterol 2021-0 Yes [id number] INHALE ONE [facility] Sulfate 7-19 6 TO TWO [facility] (PROAIR 00:00: PUFFS BY of HFA) 108 00 MOUTH Medicin (90 Base) EVERY 6 e MCG/ACT HOURS AERS NEEDED FOR WHEEZING meclizine 2021-0 Yes [id number] 25mg Take 1 [facility] (ANTIVERT) 7-19 [...] two times e daily. Albuterol 2021-0 Yes [id number] INHALE ONE [facility] Sulfate 7-19 6 TO TWO [facility] (PROAIR 00:00: PUFFS BY of HFA) 108 00 MOUTH Medicin (90 Base) EVERY 6 e MCG/ACT HOURS AERS NEEDED FOR WHEEZING meclizine 2021-0 Yes [id number] 25mg Take 1 [facility] (ANTIVERT) 7-19 Tablet by [facility] 25 MG 00:00: mouth 3 of tablet 00 times Medicin daily as e needed for Dizziness. hydrocortis 2021-0 Yes [facility] one 2.5 % 7-19 College cream 00:00: of 00 Medicin e Hydrocortis 2021-0 Yes 1{appli Apply 1 [facility] one, 7-19 cation} applicatio [facility], 00:00: n of (ANUSOL-HC) 00 topically Med icin 2.5 % CREA two times e daily. Albuterol 2021-0 Yes [id number] INHALE ONE [facility] Sulfate 7-19 6 TO TWO [facility] (PROAIR 00:00: PUFFS BY of HFA) 108 00 MOUTH Medicin (90 Base) EVERY 6 e MCG/ACT HOURS AERS NEEDED FOR WHEEZING meclizine 2021-0 Yes [id number] 25mg Take 1 [facility] (ANTIVERT) 7-19 Tablet by [facility] 25 MG 00:00: mouth 3 of tablet 00 times Medicin daily as e needed for Dizziness. hydrocortis 2021-0 Yes [facility] one 2.5 % 7-19 College cream 00:00: of 00 Medicin e Hydrocortis 2021-0 Yes 1{appli Apply 1 [facility] one, 7-19 cation} applicatio [facility], 00:00: n of (ANUSOL-HC) 00 topically Med icin 2.5 % CREA two times e daily. Albuterol 2021-0 Yes [id number] INHALE ONE [facility] Sulfate 7-19 6 TO TWO [facility] (PROAIR 00:00: PUFFS BY of HFA) 108 00 MOUTH Medicin (90 Base) EVERY 6 e MCG/ACT HOURS AERS NEEDED FOR WHEEZING meclizine 2021-0 Yes [id number] 25mg Take 1 [facility] (ANTIVERT) 7-19 Tablet by [facility] e[facility] 25 MG 00:00: mouth 3 of tablet 00 times Medicin daily as e needed for Dizziness. hydrocortis 2021-0 Yes [facility] one 2.5 % 7-19 College cream 00:00: of 00 Medicin e Hydrocortis 2021-0 Yes 1{appli Apply 1 [facility] one, 7-19 cation} applicatio [facility], 00:00: n of (ANUSOL-HC) 00 topically Med icin 2.5 % CREA two times e daily. Albuterol 2021-0 Yes [id number] INHALE ONE [facility] Sulfate 7-19 6 TO TWO [facility] (PROAIR 00:00: PUFFS BY of HFA) 108 00 MOUTH Medicin (90 Base) EVERY 6 e MCG/ACT HOURS AERS NEEDED FOR WHEEZING meclizine 2021-0 Yes [id number] 25mg Take 1 [facility] (ANTIVERT) 7-19 Tablet by [facility] 25 MG 00:00: mouth 3 of tablet 00 times Medicin daily as e needed for Dizziness. hydrocortis 2021-0 Yes [facility] one 2.5 % 7-19 College cream 00:00: of 00 Medicin e Hydrocortis 2021-0 Yes 1{appli Apply 1 [facility] one, 7- cation} applicatio [facility], 00:00: n of (ANUSOL-HC) 00 topically Med icin 2.5 % CREA two times e daily. Albuterol 2021-0 Yes [id number] INHALE ONE [facility] Sulfate 7-19 6 TO TWO [facility] (PROAIR 00:00: PUFFS BY of HFA) 108 00 MOUTH Medicin (90 Base) EVERY 6 e MCG/ACT HOURS AERS NEEDED FOR WHEEZING meclizine 2021-0 Yes [id number] 25mg Take 1 [facility]yl[facility] (ANTIVERT) 7-19 Tablet by Deangelo ege 25 MG 00:00: mouth 3 of tablet 00 times Medicin daily as e needed for Dizziness. hydrocortis 2021-0 Yes Mikal one 2.5 % 7-19 College cream 00:00: of 00 Medicin e Hydrocortis 2021-0 Yes 1{appli Apply 1 [employer] [facility] one, 7-19 cation} applicatio [facility], 00:00: n of (ANUSOL-HC) 00 topically Med icin 2.5 % CREA two times e daily. Albuterol 2021-0 Yes [id number] INHALE ONE Mikal Sulfate 7-19 6 TO TWO College (PROAIR 00:00: PUFFS BY of HFA) 108 00 MOUTH Medicin (90 Base) EVERY 6 e MCG/ACT HOURS AERS NEEDED FOR WHEEZING meclizine 2021-0 Yes [id number] 25mg Take 1 [facility] (ANTIVERT) 7-19 Tablet by Deangelo ege 25 MG 00:00: mouth 3 of tablet 00 times Medicin daily as e needed for Dizziness. hydrocortis 0 Yes [facility] one 2.5 % 7-19 College cream 00:00: of 00 Medicin e Hydrocortis 2021-0 Yes 1{appli Apply 1 [facility] one, 7-19 cation} applicatio Colleg e Perianal, 00:00: n of (ANUSOL-HC) 00 topically Med icin 2.5 % CREA two times e daily. Albuterol 0 Yes [id number] INHALE ONE [facility] Sulfate 7-19 6 TO TWO College (PROAIR 00:00: PUFFS BY of HFA) 108 00 MOUTH Medicin (90 Base) EVERY 6 e MCG/ACT HOURS AERS NEEDED FOR WHEEZING meclizine 0 Yes [id number] 25mg Take 1 [facility] (ANTIVERT) 7-19 Tablet by De[facility] ege 25 MG 00:00: mouth 3 of tablet 00 times Medicin daily as e needed for Dizziness. LamoTRIgine 0 Yes [id number] 1{tbl} Take 1 [facility] 300 MG TB24 7-19 Tablet by Col lege 00:00: mouth of 00 daily. Medicin e amphetamine 0 Yes [id number] 1{tbl} Take 1 [facility] -dextroamph 7-19 Tablet by Col lege etamine 00:00: mouth of (ADDERALL, 00 daily. Medicin 15MG,) 15 e MG tablet Hydrocortis 0 Yes 1{appli Apply 1 [facility] one, 7-19 cation} applicatio [facility], 00:00: n of (ANUSOL-HC) 00 topically Med icin 2.5 % CREA two times e daily. Albuterol 0 Yes [id number] INHALE ONE [facility] Sulfate 7-19 6 TO TWO College (PROAIR 00:00: PUFFS BY of HFA) 108 00 MOUTH Medicin (90 Base) EVERY 6 e MCG/ACT HOURS AERS NEEDED FOR WHEEZING meclizine 2021-0 Yes [id number] 25mg Take 1 [facility] (ANTIVERT) 7-19 Tablet by De[facility] ege 25 MG 00:00: mouth 3 of tablet 00 times Medicin daily as e needed for Dizziness. LamoTRIgine 0 Yes [id number] 1{tbl} Take 1 [facility] 300 MG TB24 7-19 Tablet by Col lege 00:00: mouth of 00 daily. Medicin e amphetamine 0 Yes [id number] 1{tbl} Take 1 [facility] -dextroamph 7-19 Tablet by Col lege etamine 00:00: mouth of (ADDERALL, 00 daily. Medicin 15MG,) 15 e MG tablet hydrocortis 0 Yes [facility] one 2.5 % 01-09 College cream 00:00: of 00 Medicin e Hydrocortis 0 Yes 1{appli Apply 1 [facility] one, - cation} applicatio [facility]ian[facility], 00:00: n of (ANUSOL-HC) 00 topically Med icin 2.5 % CREA two times e daily. Albuterol Yes [id number] INHALE ONE [facility] Sulfate -19 6 TO TWO College (PROAIR 00:00: PUFFS BY of HFA) 108 00 MOUTH Medicin (90 Base) EVERY 6 e MCG/ACT HOURS AERS NEEDED FOR WHEEZING meclizine 0 Yes [id number] 25mg Take 1 [facility] (ANTIVERT) 7-19 Tablet by De[facility] ege 25 MG 00:00: mouth 3 of tablet 00 times Medicin daily as e needed for Dizziness. LamoTRIgine 0 Yes [id number] 1{tbl} Take 1 [facility] 300 MG TB24 7-19 Tablet by Col lege 00:00: mouth of 00 daily. Medicin e amphetamine 2021-0 Yes [id number] 1{tbl} Take 1 [facility] -dextroamph 7-19 Tablet by Col lege etamine 00:00: mouth of (ADDERALL, 00 daily. Medicin 15MG,) 15 e MG tablet LamoTRIgine 0 2021- No [id number] 1{tbl} Take 1 [facility] 300 MG TB24 7-19 09-13 Tablet by Co llege 00:00: 00:00 mouth of 00 :00 daily. Medicin e fluticasone 0 Yes [id number] 2{spray 2 Sprays [facility] (FLONASE) 7-14 } by Each [place] 50 MCG/ACT 00:00: Nostril of nasal spray 00 route two Med icin times e daily. fluticasone 2021-0 Yes [id number] 2{spray 2 Sprays [facility] (FLONASE) 7-14 } by Each [place] 50 MCG/ACT 00:00: Nostril of nasal spray 00 route two Med icin times e daily. fluticasone 2021-0 Yes [id number] 2{spray 2 Sprays [facility] (FLONASE) 7-14 } by Each [place] 50 MCG/ACT 00:00: Nostril of nasal spray 00 route two Med icin times e daily. fluticasone 2021-0 Yes [id number] 2{spray 2 Sprays [facility] (FLONASE) 7-14 } by Each [place] 50 MCG/ACT 00:00: Nostril of nasal spray 00 route two Med icin times e daily. fluticasone 0 Yes [id number] 2{spray 2 Sprays [facility] (FLONASE) 7-14 } by Each [place] 50 MCG/ACT 00:00: Nostril of nasal spray 00 route two Med icin times e daily. fluticasone 0 Yes [id number] 2{spray 2 Sprays [facility] (FLONASE) 7-14 } by Each [place] 50 MCG/ACT 00:00: Nostril of nasal spray 00 route two Med icin times e daily. fluticasone 2021-0 Yes [id number] 2{spray 2 Sprays [facility] (FLONASE) 7-14 } by Each [place] 50 MCG/ACT 00:00: Nostril of nasal spray 00 route two Med icin times e daily. fluticasone 2021-0 Yes [id number] 2{spray 2 Sprays [facility] (FLONASE) 7-14 } by Each [place] 50 MCG/ACT 00:00: Nostril of nasal spray 00 route two Med icin times e daily. fluticasone 2021-0 Yes [id number] 2{spray 2 Sprays [facility] (FLONASE) 7-14 } by Each [place] 50 MCG/ACT 00:00: Nostril of nasal spray 00 route two Med icin times e daily. fluticasone Yes [id number] 2{spray 2 Sprays [facility] (FLONASE) 7-14 } by Each [place] 50 MCG/ACT 00:00: Nostril of nasal spray 00 route two Med icin times e daily. fluticasone Yes [id number] 2{spray 2 Sprays [facility] (FLONASE) 7-14 } by Each [place] 50 MCG/ACT 00:00: Nostril of nasal spray 00 route two Med icin times e daily. fluticasone Yes [id number] 2{spray 2 Sprays [facility] (FLONASE) -14 } by Each [place] 50 MCG/ACT 00:00: Nostril of nasal spray 00 route two Med icin times e daily. fluconazole Yes [id number] Take 1 [facility] (DIFLUCAN) - tablet [facility] 150 MG 00:00: every 72 of tablet 00 hours for Medicin three e doses, followed by maintenanc e fluconazol e therapy once per week for six months. fluconazole Yes [id number] Take 1 [facility] (DIFLUCAN) - tablet [place] 150 MG 00:00: every 72 of tablet 00 hours for Medicin three e doses, followed by maintenanc e fluconazol e therapy once per week for six months. fluconazole Yes [id number] Take 1 [facility] (DIFLUCAN) - tablet [place] 150 MG 00:00: every 72 of tablet 00 hours for Medicin three e doses, followed by maintenanc e fluconazol e therapy once per week for six months. fluticasone Yes 1{puff} Inhale 1 [facility] -salmeterol 7-05 Puff by [facility] (ADVAIR) 15:47: mouth of 500-50 21 every 12 Medicin MCG/DOSE hours. e inhaler folic acid 0 Yes 1mg Take 1 [facility] (FOLVITE) 1 6-28 Tablet by Col lege MG tablet 00:00: mouth of 00 daily. Medicin e leflunomide 0 Yes 10mg Take 1 [facility] (ARAVA) [...] mouth of 00 daily. Medicin e fluticasone 2022-0 Yes 1{puff} Inhale 1 [facility] -salmeterol 6-02 Puff by [facility] sy (ADVAIR) 13:13: mouth of 500-50 10 every 12 Medicin MCG/DOSE hours. e inhaler propranolol 2022-0 Yes [id number] 20mg Take 1 [facility] (INDERAL) 6-02 Tablet by Colle ge 20 MG 00:00: mouth 3 of tablet 00 times Medicin daily. e fluconazole Yes [id number] Take one [facility] (DIFLUCAN) 11-21 tab po College 150 MG 00:00: now. And of tablet 00 one more Medicin tab po e after antibiotic course. For vaginal yeast infection vancomycin 2021- No [id number] 125mg Take 1 [facility] (VANCOCIN) 11-21 06-08 capsule by Co llege 125 MG 00:00: 04:59 mouth 3 of capsule 00 :00 times Medicin daily for e 7 days. For urine infection trazodone Yes [id number] 100mg Take 1 [facility] (DESYREL) 5-18 Tablet by Colle ge 100 MG 00:00: mouth of tablet 00 nightly. Medicin e LamoTRIgine Yes [id number] 1{tbl} Take 1 [facility] (LAMICTAL 5-18 Tablet by Colle ge XR) 250 MG 00:00: mouth of TB24 00 daily. Medicin e amphetamine Yes [id number] 1{tbl} Take 1 [facility] -dextroamph 5-18 Tablet by Col lege etamine 00:00: mouth of (ADDERALL, 00 daily. Medicin 5MG,) 5 MG e tablet trazodone Yes [id number] 100mg Take 1 [facility] (DESYREL) 5-18 Tablet by Colle ge 100 MG 00:00: mouth of tablet 00 nightly. Medicin e trazodone Yes [id number] 100mg Take 1 [facility] (DESYREL) 5-18 Tablet by Colle ge 100 MG 00:00: mouth of tablet 00 nightly. Medicin e trazodone Yes [id number] 100mg Take 1 [facility] (DESYREL) 5-18 Tablet by Colle ge 100 MG 00:00: mouth of tablet 00 nightly. Medicin e trazodone Yes [id number] 100mg Take 1 [facility] (DESYREL) 5-18 Tablet by Colle ge 100 MG 00:00: mouth of tablet 00 nightly. Medicin e trazodone 2021-0 2021- No [id number] 100mg Take 1 [facility] (DESYREL) 5-18 09-13 Tablet by De[facility] ege 100 MG 00:00: 00:00 mouth of tablet 00 :00 nightly. Medicin e Dexlansopra 2021-0 Yes Take 60mg [facility] zole 60 MG 5-13 PO daily Colle ge CPDR 00:00: of 00 Medicin e hydrOXYzine 2021-0 Yes [id number] 25mg Take 1 [facility] (ATARAX) 25 5-12 Tablet by Col lege MG tablet 00:00: mouth 3 of 00 times Medicin daily as e needed for Itching. Dexlansopra 2021-0 Yes 60mg Take 60 mg [facility] zole 5-12 by mouth College (DEXILANT) 00:00: daily. of 60 MG CPDR 00 Medicin e triamcinolo 2021-0 Yes [id number] Apply to [facility] ne 5-12 [facility] (KENALOG) 00:00: lesions 2 of 0.1 % cream 00 times Medicin daily e hydrOXYzine 2021-0 Yes [id number] 25mg Take 1 [facility] (ATARAX) 25 5-12 Tablet by Col lege MG tablet 00:00: mouth 3 of 00 times Medicin daily as e needed for Itching. hydrOXYzine 2021-0 Yes [id number] 25mg Take 1 [facility] (ATARAX) 25 5-12 Tablet by Col lege MG tablet 00:00: mouth 3 of 00 times Medicin daily as e needed for Itching. hydrOXYzine 2021-0 Yes [id number] 25mg Take 1 [facility] (ATARAX) 25 5-12 Tablet by Col lege MG tablet 00:00: mouth 3 of 00 times Medicin daily as e needed for Itching. hydrOXYzine 2021-0 Yes [id number] 25mg Take 1 [facility] (ATARAX) 25 5-12 Tablet by Col lege MG tablet 00:00: mouth 3 of 00 times Medicin daily as e needed for Itching. hydrOXYzine 2021-0 2021- No [id number] 25mg Take 1 [facility] (ATARAX) 25 5-12 09-13 Tablet by Co llege MG tablet 00:00: 00:00 mouth 3 of 00 :00 times Medicin daily as e needed for Itching. Spacer/Aero 2022-0 Yes [id number] Or any [place] [address] other [facility] 00:00: covered of (BREATHERIT 00 spacer Medici n E DEANGELO compatible e SPACER with pt's ADULT) MISC inhalers. Spacer/Aero 2022-0 Yes [id number] Or any [place] [address] other [facility] 00:00: covered of (BREATHERIT 00 spacer Medici n E DEANGELO compatible e SPACER with pt's ADULT) MISC inhalers. Spacer/Aero 2022-0 Yes [id number] Or any [place] [address] other [facility] 00:00: covered of (BREATHERIT 00 spacer Medici n E DEANGELO compatible e SPACER with pt's ADULT) MISC inhalers. Spacer/Aero 2022-0 Yes [id number] Or any [place] [address] other [facility] 00:00: covered of (BREATHERIT 00 spacer Medici n E DEANGELO compatible e SPACER with pt's ADULT) MISC inhalers. Spacer/Aero 2022-0 Yes [id number] Or any [place] [address] other [facility] 00:00: covered of (BREATHERIT 00 spacer Medici n E DEANGELO compatible e SPACER with pt's ADULT) MISC inhalers. Spacer/Aero 2-0 Yes [id number] Or any [place] [address] other [facility] 00:00: covered of (BREATHERIT 00 spacer Medici n E DEANGELO compatible e SPACER with pt's ADULT) MISC inhalers. Spacer/Aero 2022-0 Yes [id number] Or any [address] 00:00: covered of (BREATHERIT 00 spacer Medici n E DEANGELO compatible e SPACER with pt's ADULT) MISC inhalers. Spacer/Aero 2022-0 Yes [id number] Or any [address] 00:00: covered of (BREATHERIT 00 spacer Medici n E DEANGELO compatible e SPACER with pt's ADULT) MISC inhalers. Spacer/Aero 2022-0 Yes [id number] Or any [place] [address] other [facility] 00:00: covered of (BREATHERIT 00 spacer Medici n E DEANGELO compatible e SPACER with pt's ADULT) MISC inhalers. Spacer/Aero 2-0 Yes [id number] Or any [facility] 4-13 other [facility] 00:00: covered of (BREATHERIT 00 spacer Medici n E DEANGELO compatible e SPACER with pt's ADULT) MISC inhalers. Spacer/Aero 2021-0 Yes [id number] Or any [facility] 4-13 other [facility] 00:00: covered of (BREATHERIT 00 spacer Medici n E DEANGELO compatible e SPACER with pt's ADULT) MISC inhalers. Spacer/Aero 2021-0 Yes [id number] Or any [facility] 4-13 other [facility] 00:00: covered of (BREATHERIT 00 spacer Medici n E DEANGELO compatible e SPACER with pt's ADULT) MISC inhalers. Spacer/Aero 2021-0 Yes [id number] Or any [facility] 4-13 other [facility] 00:00: covered of (BREATHERIT 00 spacer Medici n E DEANGELO compatible e SPACER with pt's ADULT) MISC inhalers. dicyclomine 2021- No 20mg Take [address] [facility] (BENTYL) 20 4-12 04-22 tablet (20 [facility] mg tablet 00:00: 23:59 mg total) Me dical 00 :00 by mouth 2 Center (two) times daily as needed (abdominal cramping) for up to 10 days. dicyclomine 2021- No 20mg Take [address] [facility] (BENTYL) 20 4-12 04-22 tablet (20 [facility] mg tablet 00:00: 23:59 mg total) Me dical 00 :00 by mouth 2 Center (two) times daily as needed (abdominal cramping) for up to 10 days. dicyclomine 2021- No 20mg Take [address] [facility] (BENTYL) 20 4-12 04-22 tablet (20 [facility] mg tablet 00:00: 23:59 mg total) Me dical 00 :00 by mouth 2 Center (two) times daily as needed (abdominal cramping) for up to 10 days. ondansetron 2021- No 4mg Take [address] [facility] (ZOFRAN) 4 4-12 04-19 tablet (4 [facility] MG tablet 00:00: 23:59 mg total) Me dical 00 :00 by mouth Center every 6 (six) hours for 7 days. ondansetron 2021- No 4mg Take [address] [facility] (ZOFRAN) 4 10-03-19 tablet (4 Ady es MG tablet 00:00: 23:59 mg total) Me dical 00 :00 by mouth Center every 6 (six) hours for 7 days. ondansetron 2021-0 2021- No 4mg Take [address] [facility] (ZOFRAN) 4 10-03-19 tablet (4 Ady es MG tablet 00:00: 23:59 mg total) Me dical 00 :00 by mouth Center every 6 (six) hours for 7 days. ondansetron 0 Yes [id number] 8mg Take 1 [facility] (ZOFRAN-ODT 4-11 Tablet by Col lege ) 8 mg 00:00: mouth of disintegrat 00 every 8 Medic in ing tablet hours as e needed for Nausea. ondansetron 0 Yes [id number] 8mg Take 1 [facility] (ZOFRAN-ODT 4-11 Tablet by Col lege ) 8 mg 00:00: mouth of disintegrat 00 every 8 Medic in ing tablet hours as e needed for Nausea. ondansetron 0 Yes [id number] 8mg Take 1 [facility] (ZOFRAN-ODT 4-11 Tablet by Col lege ) 8 mg 00:00: mouth of disintegrat 00 every 8 Medic in ing tablet hours as e needed for Nausea. ondansetron 2021-0 Yes [id number] 8mg Take 1 [facility] (ZOFRAN-ODT 4-11 Tablet by Col lege ) 8 mg 00:00: mouth of disintegrat 00 every 8 Medic in ing tablet hours as e needed for Nausea. ondansetron 2021-0 Yes [id number] 8mg Take 1 [facility] (ZOFRAN-ODT 4-11 Tablet by Col lege ) 8 mg 00:00: mouth of disintegrat 00 every 8 Medic in ing tablet hours as e needed for Nausea. ondansetron 2021-0 Yes [id number] 8mg Take 1 [facility] (ZOFRAN-ODT 4-11 Tablet by Col lege ) 8 mg 00:00: mouth of disintegrat 00 every 8 Medic in ing tablet hours as e needed for Nausea. ondansetron 2021-0 Yes [id number] 8mg Take 1 [facility] (ZOFRAN-ODT 4-11 Tablet by Col lege ) 8 mg 00:00: mouth of disintegrat 00 every 8 Medic in ing tablet hours as e needed for Nausea. ondansetron 2021-0 Yes [id number] 8mg Take 1 [facility] (ZOFRAN-ODT 4-11 Tablet by Col lege ) 8 mg 00:00: mouth of disintegrat 00 every 8 Medic in ing tablet hours as e needed for Nausea. ondansetron 2021-0 Yes [id number] 8mg Take 1 [facility] (ZOFRAN-ODT 4-11 Tablet by Col lege ) 8 mg 00:00: mouth of disintegrat 00 every 8 Medic in ing tablet hours as e needed for Nausea. ondansetron 2021-0 Yes [id number] 8mg Take 1 [facility] (ZOFRAN-ODT 4-11 Tablet by Col lege ) 8 mg 00:00: mouth of disintegrat 00 every 8 Medic in ing tablet hours as e needed for Nausea. ondansetron 2021-0 Yes [id number] 8mg Take 1 [facility] (ZOFRAN-ODT 4-11 Tablet by Col lege ) 8 mg 00:00: mouth of disintegrat 00 every 8 Medic in ing tablet hours as e needed for Nausea. ondansetron 2021-0 Yes [id number] 8mg Take 1 [facility] (ZOFRAN-ODT 4-11 Tablet by Col lege ) 8 mg 00:00: mouth of disintegrat 00 every 8 Medic in ing tablet hours as e needed for Nausea. ondansetron 2021-0 Yes [id number] 8mg Take 1 [facility] (ZOFRAN-ODT 4-11 Tablet by Col lege ) 8 mg 00:00: mouth of disintegrat 00 every 8 Medic in ing tablet hours as e needed for Nausea. gabapentin 2-0 Yes 800mg Take 1 [facility] [...] 00 times Medicin daily. e gabapentin 2022-0 2022- No 800mg Take 1 [facility] (NEURONTIN) 4-07 10-13 Tablet by Co llege 800 MG 00:00: 00:00 mouth 3 of tablet 00 :00 times Medicin daily. e gabapentin 2022-0 2022- No 1{tbl} Take 1 [facility] 800 mg 4-07 10-11 tablet by ity of tablet 00:00: 00:00 mouth in [place] 00 :00 the Medical morning Branch and 1 tablet at noon and 1 tablet in the evening. gabapentin 2022-0 2022- No 1{tbl} Take 1 [facility] 800 mg 4-07 10-11 tablet by ity of tablet 00:00: 00:00 mouth in [place] 00 :00 the Medical morning Branch and 1 tablet at noon and 1 tablet in the evening. fluticasone 2022-0 Yes 1{puff} Inhale 1 [facility] -salmeterol 3-18 Puff by [facility] (ADVAIR 14:16: mouth of DISKUS) 42 every 12 Medicin 500-50 hours. e MCG/DOSE inhaler trazodone 2-0 Yes 100mg Take 100 [facility] [facility] (DESYREL) 3-18 mg by [place] 100 MG 13:44: mouth of tablet 26 nightly. Medicin e lamotrigine 2-0 Yes 100mg Take 100 [facility] (LAMICTAL) 3-18 mg by [place] 25 MG 13:44: mouth. of tablet 26 Medicin e azelastine- 2-0 Yes SPRAY ONE U nivers [...] TWICE Branch DAILY NEEDED Azelastine- 2022-0 Yes [id number] SPRAY ONE [facility] Fluticasone 3-17 6 SPRAY IN [facility] 00:00: EACH of MCG/ACT 00 NOSTRIL Medicin SUSP TWICE e DAILY NEEDED Azelastine- 2022-0 Yes [id number] SPRAY ONE [facility] Fluticasone 3-17 6 SPRAY IN [facility] 00:00: EACH of MCG/ACT 00 NOSTRIL Medicin SUSP TWICE e DAILY NEEDED Azelastine- 2022-0 Yes [id number] SPRAY ONE [facility] Fluticasone 3-17 6 SPRAY IN [facility] 00:00: EACH of MCG/ACT 00 NOSTRIL Medicin SUSP TWICE e DAILY NEEDED Azelastine- 2022-0 Yes [id number] SPRAY ONE [facility] Fluticasone 3-17 6 SPRAY IN [facility] 00:00: EACH of MCG/ACT 00 NOSTRIL Medicin SUSP TWICE e DAILY NEEDED Azelastine- 2022-0 Yes [id number] SPRAY ONE [facility] Fluticasone 3-17 6 SPRAY IN [facility] 00:00: EACH of MCG/ACT 00 NOSTRIL Medicin SUSP TWICE e DAILY NEEDED Azelastine- 2022-0 Yes [id number] SPRAY ONE [facility] Fluticasone 3-17 6 SPRAY IN [facility] 00:00: EACH of MCG/ACT 00 NOSTRIL Medicin SUSP TWICE e DAILY NEEDED Azelastine- 2022-0 Yes [id number] SPRAY ONE [facility] Fluticasone 3-17 6 SPRAY IN [facility] 00:00: EACH of MCG/ACT 00 NOSTRIL Medicin SUSP TWICE e DAILY NEEDED Azelastine- 2022-0 Yes [id number] SPRAY ONE [facility] Fluticasone 3-17 6 SPRAY IN [facility] 00:00: EACH of MCG/ACT 00 NOSTRIL Medicin SUSP TWICE e DAILY NEEDED Azelastine- 2021-0 Yes [id number] SPRAY ONE [facility] Fluticasone 3-17 6 SPRAY IN [place] [address] 00:00: EACH of MCG/ACT 00 NOSTRIL Medicin SUSP TWICE e DAILY NEEDED Albuterol 2021-0 Yes [id number] INHALE ONE [facility] Sulfate 3-17 6 TO TWO [facility] (PROAIR 00:00: PUFFS BY of HFA) 108 00 MOUTH Medicin (90 Base) EVERY 6 e MCG/ACT HOURS AERS NEEDED FOR WHEEZING fluconazole 2021-0 Yes [id number] 150mg Take 1 [facility] (DIFLUCAN) 3-17 Tablet by [facility] 150 MG 00:00: mouth of tablet 00 daily. Medicin e Azelastine- 2021-0 Yes [id number] SPRAY ONE [facility] Fluticasone 3-17 6 SPRAY IN [place] [address] 00:00: EACH of MCG/ACT 00 NOSTRIL Medicin SUSP TWICE e DAILY NEEDED Albuterol 2021-0 Yes [id number] INHALE ONE [facility] Sulfate 3-17 6 TO TWO [facility] (PROAIR 00:00: PUFFS BY of HFA) 108 00 MOUTH Medicin (90 Base) EVERY 6 e MCG/ACT HOURS AERS NEEDED FOR WHEEZING Azelastine- 2021-0 Yes [id number] SPRAY ONE [facility] Fluticasone 3-17 6 SPRAY IN [place] [address] 00:00: EACH of MCG/ACT 00 NOSTRIL Medicin SUSP TWICE e DAILY NEEDED Azelastine- 2021-0 Yes [id number] SPRAY ONE [facility] Fluticasone 3-17 6 SPRAY IN [facility] 00:00: EACH of MCG/ACT 00 NOSTRIL Medicin SUSP TWICE e DAILY NEEDED Azelastine- 2021-0 Yes [id number] SPRAY ONE [facility] Fluticasone 3-17 6 SPRAY IN [place] [address] 00:00: EACH of MCG/ACT 00 NOSTRIL Medicin SUSP TWICE e DAILY NEEDED Azelastine- 2021-0 2021- No [id number] SPRAY ONE [facility] Fluticasone 3-17 11-08 6 SPRAY IN [place] [address] 00:00: 00:00 EACH of MCG/ACT 00 :00 NOSTRIL Medicin SUSP TWICE e DAILY NEEDED benzonatate 2021-0 202- No [id number] 100mg Take 1 [facility] (TESSALON 3-17 03-28 capsule by Col joan TORRES) 100 00:00: 04:59 mouth 3 of mg capsule 00 :00 times Medicin daily as e needed for Cough for up to 10 days. ondansetron 0 Yes [id number] 8mg Take 1 [facility] (ZOFRAN-ODT 3-09 Tablet by Col franco ) 8 mg 00:00: mouth of disintegrat 00 every 8 Medic in ing tablet hours as e needed for Nausea. meclizine 0 Yes [id number] 25mg Take 1 [facility] (ANTIVERT) 3-09 Tablet by Deangelo ege 25 MG 00:00: mouth 3 of tablet 00 times Medicin daily as e needed for Dizziness. meclizine 0 Yes [id number] 25mg Take 1 [facility] (ANTIVERT) 3-09 Tablet by Deangelo ege 25 MG 00:00: mouth 3 of tablet 00 times Medicin daily as e needed for Dizziness. azithromyci 0 Yes [id number] Take as [facility] n 3-07 directed [place] (ZITHROMAX) 00:00: on package of 250 MG 00 labeling. Medicin tablet Two pills e by mouth for the first day and then 1 pill daily until done. propranolol 0 Yes 5 mg bid x [facility] (INDERAL) 3 5 days [facility] 10 MG 00:00: then 10 mg of tablet 00 bid Medicin e propranolol 2021-0 2021- No 5 mg bid x [facility] (INDERAL) 3 06-02 5 days [facility] 10 MG 00:00: 00:00 then 10 mg of tablet 00 :00 bid Medicin e Sodium 2021-0 Yes Use as [facility] Sulfate-Mag 2-22 directed [facility] ege Sulfate-KCl 00:00: of (SUTAB) 00 Medicin [id number] e 8 MG TABS Sodium 2021-0 Yes Use as [facility] Sulfate-Mag 2-22 directed [facility] ege Sulfate-KCl 00:00: of (SUTAB) 00 Medicin [id number] e 8 MG TABS Dexlansopra 2021-0 Yes 60mg Take 60 mg [facility] zole 2-17 by mouth [place] (DEXILANT) 00:00: daily. of 60 MG CPDR 00 Medicin e trazodone 2021-0 Yes 100mg Take 100 [place] [facility] (DESYREL) 1-04 mg by [place] 100 MG 11:35: mouth of tablet 08 nightly. Medicin e lamotrigine 2-0 Yes 100mg Take 100 [facility] (LAMICTAL) 1-04 mg by [place] 25 MG 11:35: mouth. of tablet 08 Medicin e trazodone 2021-0 Yes 100mg Take 100 [place] [facility] (DESYREL) 1-04 mg by [place] 100 MG 11:35: mouth of tablet 08 nightly. Medicin e lamotrigine 2021-0 Yes 100mg Take 100 [facility] (LAMICTAL) 1-04 mg by [place] 25 MG 11:35: mouth. of tablet 08 Medicin e fluticasone 2021-0 Yes 1{puff} Inhale 1 [facility] -salmeterol 1-04 Puff by [employer] (ADVAIR 00:00: mouth two of DISKUS) 00 times Medicin 250-50 daily. e MCG/DOSE inhaler fluticasone 2021-0 Yes 1{puff} Inhale 1 [facility] -salmeterol 1-04 Puff by [employer] (ADVAIR 00:00: mouth two of DISKUS) 00 times Medicin 250-50 daily. e MCG/DOSE inhaler fluticasone 2021-0 Yes 1{puff} Inhale 1 [facility] -salmeterol 1-04 Puff by [employer] (ADVAIR 00:00: mouth two of DISKUS) 00 times Medicin 250-50 daily. e MCG/DOSE inhaler fluticasone 2-0 Yes 1{puff} Inhale 1 [facility] -salmeterol 1-04 Puff by [employer] (ADVAIR 00:00: mouth two of DISKUS) 00 times Medicin 250-50 daily. e MCG/DOSE inhaler azithromyci 2021-0 Yes [id number] Take as [facility] n 1-03 [facility] (ZITHROMAX) 00:00: on package of 250 MG 00 labeling. Medicin tablet Two pills e by mouth for the first day and then 1 pill daily until done. azithromyci 2022-0 Yes [id number] Take as [facility] n -03 [facility] (ZITHROMAX) 00:00: on package of 250 MG 00 labeling. Medicin tablet Two pills e by mouth for the first day and then 1 pill daily until done. predniSONE 2021- No [id number] 40mg Take 2 [facility] (DELTASONE) 06-2609 Tablets by Miguel robertson 20 MG 00:00: 05:59 mouth of tablet 00 :00 daily for Medicin 5 days. e predniSONE 2021- No [id number] 40mg Take 2 [facility] (DELTASONE) 06-26 Tablets by [facility] 20 MG 00:00: 05:59 mouth of tablet 00 :00 daily for Medicin 5 days. e methylPREDN 2020-06 Yes [id number] Day 1: 24 [facility] ISolone 4 2-15 mg on day Colle ge MG TBPK 00:: administer Medicin ed as 8 mg e [...] (1 tablet) before breakfast. methylPREDN 2020-06 Yes [id number] Day 1: 24 [facility] ISolone 4 2-15 mg on day Colle ge MG TBPK 00:: administer Medicin ed as 8 mg e [...] breakfast. trazodone 2020-06 Yes 100mg Take 100 [place] [facility] (DESYREL) 1-10 mg by [place] 100 MG 11:29: mouth of tablet 50 [...] tablet 00 times Medicin daily. e trazodone Yes 100mg Take 100 [place] [facility] (DESYREL) 9-10 mg by [place] 100 MG 13:55: mouth of tablet 36 nightly. Medicin e lamotrigine 0 Yes 100mg Take 100 [facility] (LAMICTAL) 9-10 mg by [place] 25 MG 13:55: mouth. of tablet 36 Medicin e lamotrigine 2020-0 Yes 100mg Take 100 [facility] (LAMICTAL) 9-10 mg by [facility] 25 MG 13:55: mouth. of tablet 36 Medicin e trazodone 2020-0 Yes 100mg Take 100 [place] [facility] (DESYREL) 9-10 mg by [facility] 100 MG 13:55: mouth of tablet 36 nightly. Medicin e lamotrigine 2020-0 Yes 100mg Take 100 [facility] (LAMICTAL) 9-10 mg by [facility] 25 MG 13:55: mouth. of tablet 36 Medicin e azithromyci 2020-0 Yes [id number] Take as [facility] n 8-24 directed [facility] (ZITHROMAX) 00:00: on package of 250 MG 00 labeling. Medicin tablet Two pills e by mouth for the first day and then 1 pill daily until done. Benzocaine- 2020-0 Yes 1U Take 1 [facility] Menthol 8-24 Units by [facility] (CHLORASEPT 00:00: mouth 3 of IC) 6-10 MG 00 times Medicin LOZG daily as e needed. Benzocaine- 2020-0 Yes 1U Take 1 [facility] Menthol 8-24 Units by [place] (CHLORASEPT 00:00: mouth 3 of IC) 6-10 MG 00 times Medicin LOZG daily as e needed. Benzocaine- 2020-0 Yes 1U Take 1 [facility] Menthol 8-24 Units by [place] (CHLORASEPT 00:00: mouth 3 of IC) 6-10 MG 00 times Medicin LOZG daily as e needed. Benzocaine- 2020-0 Yes 1U Take 1 [facility] Menthol 8-24 Units by [place] (CHLORASEPT 00:00: mouth 3 of IC) 6-10 MG 00 times Medicin LOZG daily as e needed. azithromyci 2020-0 Yes [id number] Take as [facility] n 8-24 directed [place] (ZITHROMAX) 00:00: on package of 250 MG 00 labeling. Medicin tablet Two pills e by mouth for the first day and then 1 pill daily until done. Benzocaine- 2020-0 Yes 1U Take 1 [facility] Menthol 8-24 Units by [facility] (CHLORASEPT 00:00: mouth 3 of IC) 6-10 MG 00 times Medicin LOZG daily as e needed. azithromyci 2020- No [id number] Take as [facility] n 8-24 11-10 [facility] (ZITHROMAX) 00:00: 00:00 on package of 250 MG 00 :00 labeling. Medicin tablet Two pills e by mouth for the first day and then 1 pill daily until done. Levocetiriz Yes [id number] 1{tbl} Take 1 [facility] 8-02 Tablet by [facility] 00:00: mouth of ride 5 MG 00 daily. Medicin TABS e Levocetiriz Yes [id number] 1{tbl} Take 1 [facility] ine 8-02 Tablet by [facility] 00:00: mouth of ride 5 MG 00 daily. Medicin TABS e Levocetiriz 0 Yes [id number] 1{tbl} Take 1 [facility] ine 8-02 Tablet by [facility] 00:00: mouth of ride 5 MG 00 daily. Medicin TABS e Levocetiriz Yes [id number] 1{tbl} Take 1 [facility] ine 8-02 Tablet by [facility] 00:00: mouth of ride 5 MG 00 daily. Medicin TABS e Levocetiriz Yes [id number] 1{tbl} Take 1 [facility] ine 8-02 Tablet by [facility] 00:00: mouth of ride 5 MG 00 daily. Medicin TABS e Levocetiriz Yes [id number] 1{tbl} Take 1 [facility] ine 8-02 Tablet by [facility] 00:00: mouth of ride 5 MG 00 daily. Medicin TABS e Levocetiriz 2020-0 Yes [id number] 1{tbl} Take 1 [facility] ine 8-02 Tablet by [facility] 00:00: mouth of ride 5 MG 00 daily. Medicin TABS e Levocetiriz 2020-0 Yes [id number] 1{tbl} Take 1 [facility] ine 8-02 Tablet by [facility] 00:00: mouth of ride 5 MG 00 daily. Medicin TABS e Levocetiriz 2020-0 Yes [id number] 1{tbl} Take 1 [facility] ine 8-02 Tablet by [facility] 00:00: mouth of ride 5 MG 00 daily. Medicin TABS e Levocetiriz 2020-0 Yes [id number] 1{tbl} Take 1 [facility] ine 8-02 Tablet by [facility] 00:00: mouth of ride 5 MG 00 daily. Medicin TABS e Levocetiriz 2020-0 Yes [id number] 1{tbl} Take 1 [facility] ine 8-02 Tablet by [facility] 00:00: mouth of ride 5 MG 00 daily. Medicin TABS e Levocetiriz 2020-0 Yes [id number] 1{tbl} Take 1 [facility] ine 8-02 Tablet by [facility] 00:00: mouth of ride 5 MG 00 daily. Medicin TABS e Levocetiriz 2020-0 Yes [id number] 1{tbl} Take 1 [facility] ine 8-02 Tablet by [facility] 00:00: mouth of ride 5 MG 00 daily. Medicin TABS e Levocetiriz 2020- Yes [id number] 1{tbl} Take 1 [facility] ine 8-02 Tablet by [facility] 00:00: mouth of ride 5 MG 00 daily. Medicin TABS e Levocetiriz 2020-0 Yes [id number] 1{tbl} Take 1 [facility] ine 8-02 Tablet by [facility] 00:00: mouth of ride 5 MG 00 daily. Medicin TABS e Levocetiriz 2020-0 Yes [id number] 1{tbl} Take 1 [facility] ine 8-02 Tablet by [facility] 00:00: mouth of ride 5 MG 00 daily. Medicin TABS e Levocetiriz 2020-0 Yes [id number] 1{tbl} Take 1 [facility] ine 8-02 Tablet by [facility] 00:00: mouth of ride 5 MG 00 daily. Medicin TABS e Levocetiriz 2020-0 Yes [id number] 1{tbl} Take 1 [facility] ine 8-02 Tablet by [facility] 00:00: mouth of ride 5 MG 00 daily. Medicin TABS e Levocetiriz 2020-0 Yes [id number] 1{tbl} Take 1 [facility] ine 8-02 Tablet by [facility] 00:00: mouth of ride 5 MG 00 daily. Medicin TABS e meclizine 2020-0 Yes [id number] 25mg Take 1 [facility] (ANTIVERT) 7-23 Tablet by [facility] 25 MG 00:00: mouth 3 of tablet 00 times Medicin daily as e needed for Dizziness. ondansetron 2020-0 Yes [id number] 8mg Take 1 [facility] (ZOFRAN-ODT 7-23 Tablet by [facility] ) 8 mg 00:00: mouth of disintegrat 00 every 8 Medic in ing tablet hours as e needed for Nausea. meclizine 2020-0 Yes [id number] 25mg Take 1 [facility] (ANTIVERT) 7-23 Tablet by [facility] 25 MG 00:00: mouth 3 of tablet 00 times Medicin daily as e needed for Dizziness. ondansetron 0 Yes [id number] 8mg Take 1 [facility] (ZOFRAN-ODT 7-23 Tablet by [facility] ) 8 mg 00:00: mouth of disintegrat 00 every 8 Medic in ing tablet hours as e needed for Nausea. meclizine 0 Yes [id number] 25mg Take 1 [facility] (ANTIVERT) 7-23 Tablet by [facility] 25 MG 00:00: mouth 3 of tablet 00 times Medicin daily as e needed for Dizziness. ondansetron 2020-0 Yes [id number] 8mg Take 1 [facility] (ZOFRAN-ODT 7-23 Tablet by [facility] ) 8 mg 00:00: mouth of disintegrat 00 every 8 Medic in ing tablet hours as e needed for Nausea. meclizine 2020-0 Yes [id number] 25mg Take 1 [facility] (ANTIVERT) 7-23 Tablet by [facility] 25 MG 00:00: mouth 3 of tablet 00 times Medicin daily as e needed for Dizziness. ondansetron 2020-0 Yes [id number] 8mg Take 1 [facility] (ZOFRAN-ODT 7-23 Tablet by [facility] ) 8 mg 00:00: mouth of disintegrat 00 every 8 Medic in ing tablet hours as e needed for Nausea. meclizine 2021-0 Yes [id number] 25mg Take 1 [facility] (ANTIVERT) 7-23 Tablet by [facility] 25 MG 00:00: mouth 3 of tablet 00 times Medicin daily as e needed for Dizziness. ondansetron Yes [id number] 8mg Take 1 [facility] (ZOFRAN-ODT 7-23 Tablet by [facility] ) 8 mg 00:00: mouth of disintegrat 00 every 8 Medic in ing tablet hours as e needed for Nausea. azithromyci Yes [id number] Take as [facility] 7-15 [facility] (ZITHROMAX) 00:00: on package of 250 MG 00 labeling. Medicin tablet Two pills e by mouth for the first day and then 1 pill daily until done. azithromyci Yes [id number] Take as [facility] 715 [facility] (ZITHROMAX) 00:00: on package of 250 MG 00 labeling. Medicin tablet Two pills e by mouth for the first day and then 1 pill daily until done. azithromyci Yes [id number] Take as [facility] 715 [facility] (ZITHROMAX) 00:00: on package of 250 MG 00 labeling. Medicin tablet Two pills e by mouth for the first day and then 1 pill daily until done. azithromyci Yes [id number] Take as [facility] 715 [facility] (ZITHROMAX) 00:00: on package of 250 MG 00 labeling. Medicin tablet Two pills e by mouth for the first day and then 1 pill daily until done. azithromyci Yes [id number] Take as [facility] 715 [facility] (ZITHROMAX) 00:00: on package of 250 MG 00 labeling. Medicin tablet Two pills e by mouth for the first day and then 1 pill daily until done. Dexlansopra 2020-0 Yes [id number] 1{tbl} Take 1 [facility] zole 7-13 Tablet by [place] (DEXILANT) 00:00: mouth of 60 MG CPDR 00 daily. Medicin e Dexlansopra 2020-0 Yes [id number] 1{tbl} Take 1 [facility] zole 7-13 Tablet by [place] (DEXILANT) 00:00: mouth of 60 MG CPDR 00 daily. Medicin e Dexlansopra 2020-0 Yes [id number] 1{tbl} Take 1 [facility] zole 7-13 Tablet by [place] (DEXILANT) 00:00: mouth of 60 MG CPDR 00 daily. Medicin e Dexlansopra 2020-0 Yes [id number] 1{tbl} Take 1 [facility] zole 7-13 Tablet by [place] (DEXILANT) 00:00: mouth of 60 MG CPDR 00 daily. Medicin e Dexlansopra 2020-0 Yes [id number] 1{tbl} Take 1 [facility] zole 7-13 Tablet by [place] (DEXILANT) 00:00: mouth of 60 MG CPDR 00 daily. Medicin e guaifenesin 2020-0 Yes [id number] 600mg Take 1 [facility] (MUCINEX) 7-08 6 Tablet by [facility] ge 600 MG SR 00:00: mouth two of tablet 00 times Medicin daily. e Levocetiriz 2020-0 Yes [id number] 1{tbl} Take 1 [facility] ine 7-08 6 Tablet by [facility] 00:00: mouth of ride 5 MG 00 daily as Medici n TABS needed. e Azelastine- 2020-0 Yes [id number] 1{spray 1 [place] by [facility] Fluticasone 12-29 6 } Nasal [place] 137-50 00:00: route 2 of MCG/ACT 00 times Medicin SUSP daily as e needed. albuterol 2020-0 Yes [id number] 90ug Inhale 1-2 [facility] 108 (90 7-08 6 Puffs by [place] [facility]) 00:00: mouth of mcg/act 00 every 6 Medicin inhaler hours as e needed for Wheezing. guaifenesin 2020-0 Yes [id number] 600mg Take 1 [facility] (MUCINEX) 7-08 6 Tablet by [facility] ge 600 MG SR 00:00: mouth two of tablet 00 times Medicin daily. e Levocetiriz 2020-0 Yes [id number] 1{tbl} Take 1 [facility] ine 7-08 6 Tablet by [facility] 00:00: mouth of ride 5 MG 00 daily as Medici n TABS needed. e Azelastine- 2020-0 Yes [id number] 1{spray 1 [place] by [facility] Fluticasone 12-29 6 } Nasal [place] [id number] 00:00: route 2 of MCG/ACT 00 times Medicin SUSP daily as e needed. albuterol 2020-0 Yes [id number] 90ug Inhale 1-2 [facility] 108 (90 7-[address] [facility]) 00:00: mouth of mcg/act 00 every 6 Medicin inhaler hours as e needed for Wheezing. guaifenesin 2020-0 Yes [id number] 600mg Take 1 [facility] (MUCINEX) 7-08 6 Tablet by [facility] 600 MG SR 00:00: mouth two of tablet 00 times Medicin daily. e Levocetiriz 2020-0 Yes [id number] 1{tbl} Take 1 [facility] ine 7-08 6 Tablet by [facility] 00:00: mouth of ride 5 MG 00 daily as Medici n TABS needed. e Azelastine- 2020-0 Yes [id number] 1{spray 1 [place] by [facility] Fluticasone 12-29 6 } Nasal [place] [address] 00:00: route 2 of MCG/ACT 00 times Medicin SUSP daily as e needed. albuterol 2020-0 Yes [id number] 90ug Inhale 1-2 [facility] 108 (90 7-[address] [facility]) 00:00: mouth of mcg/act 00 every 6 Medicin inhaler hours as e needed for Wheezing. guaifenesin 2020-0 Yes [id number] 600mg Take 1 [facility] (MUCINEX) 7-08 6 Tablet by [facility] 600 MG SR 00:00: mouth two of tablet 00 times Medicin daily. e Levocetiriz 2020-0 Yes [id number] 1{tbl} Take 1 [facility] ine 7-08 6 Tablet by [facility] 00:00: mouth of ride 5 MG 00 daily as Medici n TABS needed. e Azelastine- 2020-0 Yes [id number] 1{spray 1 [place] by [facility] Fluticasone 12-29 6 } Nasal [address] 00:00: route 2 of MCG/ACT 00 times Medicin SUSP daily as e needed. albuterol 2020-0 Yes [id number] 90ug Inhale 1-2 [facility] 108 (90 7-[address] [facility]) 00:00: mouth of mcg/act 00 every 6 Medicin inhaler hours as e needed for Wheezing. Levocetiriz Yes [id number] 1{tbl} Take 1 [facility] ine 7-08 6 Tablet by [facility] 00:00: mouth of ride 5 MG 00 daily as Medici n TABS needed. e guaifenesin Yes [id number] 600mg Take 1 [facility] (MUCINEX) 7-08 6 Tablet by [facility] 600 MG SR 00:00: mouth two of tablet 00 times Medicin daily. e Levocetiriz Yes [id number] 1{tbl} Take 1 [facility] ine 7-08 6 Tablet by [facility] 00:00: mouth of ride 5 MG 00 daily as Medici n TABS needed. e Azelastine- Yes [id number] 1{spray 1 [place] by [facility] Fluticasone 08 6 } Nasal [place] 137-50 00:00: route 2 of MCG/ACT 00 times Medicin SUSP daily as e needed. albuterol Yes [id number] 90ug Inhale 1-2 [facility] 108 (90 7-[address] [facility]) 00:00: mouth of mcg/act 00 every 6 Medicin inhaler hours as e needed for Wheezing. Levocetiriz Yes [id number] 1{tbl} Take 1 [facility] ine 7-08 6 Tablet by [facility] 00:00: mouth of ride 5 MG 00 daily as Medici n TABS needed. e Adalimumab Yes [id number] 40mg Inject 40 [facility] 40 MG/0.4ML 6-30 mg into [facility] PNKT 00:00: the skin of 00 every 14 Medicin days. e Adalimumab 0 Yes [id number] 40mg Inject 40 [facility] 40 MG/0.4ML 6-30 mg into [facility]NK[facility] 00:00: the skin of 00 every 14 Medicin days. e Adalimumab 0 Yes [id number] 40mg Inject 40 [facility] 40 MG/0.4ML 6-30 mg into [facility]NK[facility] 00:00: the skin of 00 every 14 Medicin days. e Adalimumab 2020-0 Yes [id number] 40mg Inject 40 [facility] 40 MG/0.4ML 6-30 mg into [facility] 00:00: the skin of 00 every 14 Medicin days. e Adalimumab 2020-0 Yes [id number] 40mg Inject 40 [facility] 40 MG/0.4ML 6-30 mg into [facility]NK[facility] 00:00: the skin of 00 every 14 Medicin days. e Adalimumab 2020-0 2022- No [id number] 40mg Inject 40 [facility] 40 MG/0.4ML 6-30 03-18 mg into [facility] PNK[facility] 00:00: 00:00 the skin of 00 :00 every 14 Medicin days. e ondansetron 2020-0 Yes [id number] 8mg Take 1 [facility] (ZOFRAN) 8 6-21 Tablet by [facility] mg tablet 00:00: mouth of 00 every 8 Medicin hours as e needed. ondansetron 2020-0 Yes [id number] 8mg Take 1 [facility] (ZOFRAN) 8 6-21 Tablet by [facility] mg tablet 00:00: mouth of 00 every 8 Medicin hours as e needed. ondansetron 2020-0 Yes [id number] 8mg Take 1 [facility] (ZOFRAN) 8 6-21 Tablet by [facility] mg tablet 00:00: mouth of 00 every 8 Medicin hours as e needed. ondansetron 2020-0 Yes [id number] 8mg Take 1 [facility] (ZOFRAN) 8 6-21 Tablet by [facility] mg tablet 00:00: mouth of 00 every 8 Medicin hours as e needed. ondansetron 2020-0 Yes [id number] 8mg Take 1 [facility] (ZOFRAN) 8 6-21 Tablet by [facility] mg tablet 00:00: mouth of 00 every 8 Medicin hours as e needed. fluticasone 0 Yes 2{spray 2 Sprays [facility] (FLONASE) 6-15 } by [facility] 50 MCG/ACT 00:00: Nostril of nasal spray 00 route two Med icin times e daily. fluticasone 2020-0 Yes 2{spray 2 Sprays [facility] (FLONASE) 6-15 } by Each [place] 50 MCG/ACT 00:00: Nostril of nasal spray 00 route two Med icin times e daily. fluticasone 2020-0 Yes 2{spray 2 Sprays [facility] (FLONASE) 6-15 } by Each [place] 50 MCG/ACT 00:00: Nostril of nasal spray 00 route two Med icin times e daily. fluticasone 2020-0 Yes 2{spray 2 Sprays [facility] (FLONASE) 6-15 } by Each [place] 50 MCG/ACT 00:00: Nostril of nasal spray 00 route two Med icin times e daily. fluticasone 0 Yes 2{spray 2 Sprays [facility] (FLONASE) 6-15 } by Each [place] 50 MCG/ACT 00:00: Nostril of nasal spray 00 route two Med icin times e daily. fluticasone 2020-0 Yes 2{spray 2 Sprays [facility] (FLONASE) 6-15 } by Each [place] 50 MCG/ACT 00:00: Nostril of nasal spray 00 route two Med icin times e daily. fluticasone 0 Yes 2{spray 2 Sprays [facility] (FLONASE) 6-15 } by Each [place] 50 MCG/ACT 00:00: Nostril of nasal spray 00 route two Med icin times e daily. trazodone 0 Yes 100mg Take 100 [place] [facility] (DESYREL) 6-11 mg by [place] 100 MG 11:34: mouth of tablet 44 nightly. Medicin e lamotrigine 0 Yes 100mg Take 100 [facility] (LAMICTAL) 6-11 mg by [place] 25 MG 11:34: mouth. of tablet 44 Medicin e Apixaban 0 Yes [id number] 1{tbl} Take 1 [facility] (ELIQUIS) 5 6-04 Tablet by [facility] MG TABS 00:00: mouth two of 00 times Medicin daily. e Apixaban 2020-0 Yes [id number] 1{tbl} Take 1 [facility] (ELIQUIS) 5 6-04 Tablet by [facility] MG TABS 00:00: mouth two of 00 times Medicin daily. e Apixaban 2020-0 Yes [id number] 1{tbl} Take 1 [facility] (ELIQUIS) 5 6-04 Tablet by [facility] MG TABS 00:00: mouth two of 00 times Medicin daily. e Apixaban 2020-0 Yes [id number] 1{tbl} Take 1 [facility] (ELIQUIS) 5 6-04 Tablet by [facility] MG TABS 00:00: mouth two of 00 times Medicin daily. e Apixaban 2020-0 Yes [id number] 1{tbl} Take 1 [facility] (ELIQUIS) 5 6-04 Tablet by [facility] MG TABS 00:00: mouth two of 00 times Medicin daily. e Apixaban 2020-0 Yes [id number] 1{tbl} Take 1 [facility] (ELIQUIS) 5 6-04 Tablet by [facility] MG TABS 00:00: mouth two of 00 times Medicin daily. e Dexlansopra Yes [id number] 1{tbl} Take 1 [facility] zole 6-02 Tablet by [place] (DEXILANT) 00:00: mouth of 60 MG CPDR 00 daily. Medicin e Mesalamine 0 Yes 4.8g Take 4 [facility] (LIALDA) 6-02 Tablets by [facility] 1.2 g TBEC 00:00: mouth of 00 daily. Medicin e Mesalamine Yes 4.8g Take 4 [facility] (LIALDA) 6-02 Tablets by [facility] 1.2 g TBEC 00:00: mouth of 00 daily. Medicin e Mesalamine 0 Yes 4.8g Take 4 [facility] [...] 200 [facility] (LAMICTAL) 5-24 mg by [facility] 100 MG 00:00: mouth. of tablet 00 Medicin e Hydrocortis Yes 1{appli Apply 1 [facility] one, 5-21 cation} [facility]atio [facility] Per[facility], 00:00: n of (ANUSOL-HC) 00 topically Med icin 2.5 % CREA two times e daily. Hydrocortis Yes 1{appli Apply 1 [facility] one, 5-21 cation} [facility] Perian[facility], 00:00: n of (ANUSOL-HC) 00 topically Med icin 2.5 % CREA two times e daily. Hydrocortis Yes 1{appli Apply 1 [facility] one, 5-21 cation} [facility], 00:00: n of (ANUSOL-HC) 00 topically Med icin 2.5 % CREA two times e daily. Hydrocortis Yes 1{appli Apply 1 [facility] one, 5-21 cation} [facility], 00:00: n of (ANUSOL-HC) 00 topically Med icin 2.5 % CREA two times e daily. Hydrocortis Yes 1{appli Apply 1 [facility] one, 5-21 cation} [facility]ian[facility], [...] two times e daily. Amphetamine Amphetamine Yes SARTHAKE Q0.5D TAKE 1 [facility] -Dextroamph -Dextroamph - STORM M.D. TABLET [facility] etamine 5 etamine 5 00:00: TWICE an s MG Oral MG Oral 00 DAILY. Tablet Tablet dextroamphe 2021- No 1{tbl} QD Take [address] tamine-amph 10-12 tablet by [facility] etamine 5 00:00: 00:00 mouth Medica l mg Tab 00 :00 daily In Center the afternoon . dextroamphe 2021- No 1{tbl} QD Take [address] tamine-amph 10-12 tablet by [facility] etamine 5 00:00: 00:00 mouth Medica l mg Tab 00 :00 daily In Center the afternoon . dextroamphe 2020-2021- No 1{tbl} QD Take [address] tamine-amph -03-17 tablet by [facility] etamine 5 00:00: 00:00 mouth Medica l mg Tab 00 :00 daily In Center the afternoon . ELIQUIS 5 2020- Yes [id number] TAKE ONE [facility] MG TABS 4-14 TABLET BY [place] 00:00: MOUTH of 00 TWICE A Medicin DAY e meclizine 2020-0 Yes 25mg Take 1 [facility] (ANTIVERT) 1-20 Tablet by [facility] 25 MG 00:00: mouth 3 of tablet 00 times Medicin daily as e needed for Dizziness. ondansetron 2020-0 Yes 8mg Take 1 [facility] (ZOFRAN) 8 1-20 Tablet by [facility] mg tablet 00:00: mouth of 00 every 8 Medicin hours as e needed. meclizine 2020-0 Yes 25mg Take 1 [facility] (ANTIVERT) 1-20 Tablet by [facility] 25 MG 00:00: mouth 3 of tablet 00 times Medicin daily as e needed for Dizziness. ondansetron Yes 8mg Take 1 [facility] (ZOFRAN) 8 1-20 Tablet by [facility] mg tablet 00:00: mouth of 00 every 8 Medicin hours as e needed. Mesalamine Yes 4.8g Take 4 [facility] (LIALDA) 1-05 Tablets by [facility] 1.2 g TBEC 00:00: mouth of 00 daily. Medicin e trazodone 2019-06 Yes 100mg Take 100 [place] [facility] [facility] (DESYREL) 2-22 mg by [place] 100 MG 20:30: mouth of tablet 18 nightly. Medicin e lamotrigine 2019-06 Yes 100mg Take 100 [facility] (LAMICTAL) 2-22 mg by [place] 25 MG 20:30: mouth. of tablet 18 Medicin e trazodone 2019-06 Yes 100mg Take 100 [place] [facility] (DESYREL) 2-22 mg by [place] 100 MG 14:30: mouth of tablet 18 nightly. Medicin e lamotrigine 2019-06 Yes 100mg Take 100 [facility] (LAMICTAL) 2-22 mg by [place] 25 MG 14:30: mouth. of tablet 18 Medicin e ELIQUIS 5 2019-06 Yes [id number] TAKE ONE [facility] MG TABS 2-09 TABLET BY [place] 00:00: MOUTH of 00 TWICE A Medicin DAY e Dexlansopra 2019-06 Yes [id number] 1{tbl} Take 1 [facility] zole 2-04 Tablet by [place] (DEXILANT) 00:00: mouth of 60 MG CPDR 00 daily. Medicin e Dexlansopra 2019-06 Yes [id number] 1{tbl} Take 1 [facility] zole 2-04 Tablet by [place] (DEXILANT) 00:00: mouth of 60 MG CPDR 00 daily. Medicin e Norethin-Et 2019-06 2020- No Take by [facility] julien Estrad-Fe 07-1219 mouth. Oralia sy Biphas (LO 19:45: 00:00 of LOESTRIN 56 :00 Medicin FE) 1 MG-10 e MCG / 10 MCG TABS Norethin-Et 2019-06 2020- No Take by Vicnete Garciaad-Fe -19 11-19 mouth. [facility] (LO 19:45: 00:00 of LOESTRIN 56 :00 Medicin FE) 1 MG-10 e MCG / 10 MCG TABS trazodone 2019-06 Yes 100mg Take 100 [place] [facility] [facility] (DESYREL) 1-19 mg by [place] 100 MG 19:45: mouth of tablet 50 nightly. Medicin e lamotrigine 2019-06 Yes 100mg Take 100 [facility] (LAMICTAL) 1-19 mg by [place] 25 MG 19:45: mouth. of tablet 50 Medicin e trazodone 2019-06 Yes 100mg Take 100 [place] [facility] [facility] (DESYREL) 1-19 mg by [place] 100 MG 19:45: mouth of tablet 50 nightly. Medicin e lamotrigine 2019-06 Yes 100mg Take 100 [facility] (LAMICTAL) 1-19 mg by [place] 25 MG 19:45: mouth. of tablet 50 Medicin e fluticasone 2019-06 Yes 2{spray 2 Sprays [facility] (FLONASE) 1-19 } by Each [place] 50 MCG/ACT 00:00: Nostril of nasal spray 00 route two Med icin times e daily. gabapentin 2019-06 Yes 300mg Take 1 [facility] (NEURONTIN) 1-19 capsule by [facility] 300 MG 00:00: mouth 3 of capsule 00 times Medicin daily. e fluticasone 2019-06 Yes 2{spray 2 Sprays [facility] (FLONASE) 1-19 } by Each [place] 50 MCG/ACT 00:00: Nostril of nasal spray 00 route two Med icin times e daily. fluticasone 2019-06 Yes 2{spray 2 Sprays [facility] (FLONASE) 1-19 } by Each [place] 50 MCG/ACT 00:00: Nostril of nasal spray 00 route two Med icin times e daily. gabapentin 2019-06 Yes 300mg Take 1 [facility] (NEURONTIN) 1-19 capsule by [facility] 300 MG 00:00: mouth 3 of capsule 00 times Medicin daily. e fluticasone 2019-06 Yes 2{spray 2 Sprays [facility] (FLONASE) 1-19 } by Each [place] 50 MCG/ACT 00:00: Nostril of nasal spray 00 route two Med icin times e daily. gabapentin 2020- Yes 300mg Take 1 [facility] (NEURONTIN) 1-19 capsule by [facility] 300 MG 00:00: mouth 3 of capsule 00 times Medicin daily. e fluticasone 2020- Yes 2{spray 2 Sprays [facility] (FLONASE) 1-19 } by Each [place] 50 MCG/ACT 00:00: Nostril of nasal spray [...] % 1-18 affected ity of shampoo 00:00: [facility] 00 daily. Medical Apply to [place] affected areas and let shampoo sit for 5 minutes then rinse. ketoconazol 2020- Yes Apply to Un [facility] 2 % 1-18 affected ity of shampoo 00:00: [facility] daily. Medical Apply to [place] affected areas and let shampoo sit for 5 minutes then rinse. ketoconazol 2020- Yes Apply to [facility] 2 % 1-18 affected ity of shampoo 00:00: [facility] daily. Medical Apply to [place] affected areas and let shampoo sit for 5 minutes then rinse. ketoconazol 2020- Yes Apply to [facility] 2 % 1-18 affected ity of shampoo 00:00: [facility] daily. Medical Apply to [place] affected areas and let shampoo sit for 5 minutes then rinse. ketoconazol 2020-1 Yes Apply to [facility] 2 % 1-18 affected ity of shampoo 00:00: [facility] 00 daily. Medical Apply to [place] affected areas and let shampoo sit for 5 minutes then rinse. ketoconazol 2020- Yes Apply to Un [facility] e 2 % 1-18 affected ity of [...] 1-18 affected ity of shampoo 00:00: areas daily. Medical Apply to [facility] affected areas and let shampoo sit for 5 minutes then rinse. pantoprazol 2020- Yes 40mg Take 1 Tab [facility] 1-03 by [facility] [place] [place]PROTONIX) 00:00: daily. 1 of 40 MG 00 tablet by Medicin tablet mouth e every day pantoprazol 2020- Yes 40mg Take 1 Tab [facility] e 1-03 by [facility] [place] (PROTONIX) 00:00: daily. 1 of 40 MG 00 tablet by Medicin tablet mouth e every day pantoprazol 2020-1 Yes 40mg Take 1 Tab [facility] e 1-03 by [facility] [place] (PROTONIX) 00:00: daily. 1 of 40 MG 00 tablet by Medicin tablet mouth e every day pantoprazol 2020- Yes 40mg Take 1 Tab [facility] e 1-03 by [facility] [place] (PROTONIX) 00:00: daily. 1 of 40 MG 00 tablet by Medicin tablet mouth e every day pantoprazol 2019-06 Yes 40mg Take 1 Tab [facility] e -03 by mouth [place] (PROTONIX) 00:00: daily. 1 of 40 MG 00 tablet by Medicin tablet mouth e every day pantoprazol 2019-06- No 40mg Take 1 Tab [facility] e 06-26 09-10 [place] [facility] [place] 00:00: 00:00 daily. 1 of 40 MG 00 :00 tablet by Medicin tablet mouth e every day pantoprazol 2019-06- No 40mg Take 1 Tab [facility] e 06-26 09-10 [place] [facility] [place]PROTONIX) 00:00: 00:00 daily. 1 of 40 MG 00 :00 tablet by Medicin tablet mouth e every day Apixaban 2019-06 Yes [id number] 5mg Take 5 mg [facility] (ELIQUIS) 5 0-19 by mouth [facility] MG TABS 00:00: two times of 00 daily. Medicin e Apixaban 2019-06 Yes [id number] 5mg Take 5 mg [facility] (ELIQUIS) 5 0-19 by mouth [facility] MG TABS 00:00: two times of 00 daily. Medicin e clindamycin 2020-0 Yes [id number] Apply to [facility] 1 % gel 9-17 affected ity of 00:00: area(s) 2 [place] 00 ([facility]) Medical times Branch daily. clindamycin 2020-0 Yes [id number] Apply to [facility] 1 % gel 9-17 affected ity of 00:00: area(s) 2 [place] 00 ([facility]) Medical times Branch daily. clindamycin 2020-0 Yes [id number] Apply to Univers 1 % gel 9-17 affected ity of 00:00: area(s) 2 [place] 00 ([facility]) Medical times Branch daily. clindamycin 2020-0 Yes [id number] Apply to Univers 1 % gel 9-17 affected ity of 00:00: area(s) 2 [place] 00 ([facility]) Medical times Branch daily. clindamycin 2020-0 Yes [id number] Apply to [facility] 1 % gel 9-17 affected ity of 00:00: area(s) 2 [place] 00 ([facility]) Medical times Branch daily. clindamycin 2020-0 Yes [id number] Apply to Univers 1 % gel 9-17 affected ity of 00:00: area(s) 2 [place] 00 (two) Medical times Branch daily. clindamycin 2020-0 Yes [id number] Apply to Univers 1 % gel 9-17 affected ity of 00:00: area(s) 2 [place] 00 (two) Medical times Branch daily. clindamycin 2020-0 Yes [id number] Apply to [facility] 1 % gel 9-17 affected ity of 00:00: area(s) 2 [place] 00 (two) Medical times Branch daily. clindamycin 2020-0 Yes [id number] Apply to [facility] 1 % gel 9-17 affected ity of 00:00: area(s) 2 [place] 00 (two) Medical times Branch daily. clindamycin 2020-0 Yes [id number] Apply to [facility] 1 % gel 9-17 affected ity of 00:00: area(s) 2 [place] 00 (two) Medical times Branch daily. clindamycin 2020-0 Yes [id number] Apply to [facility] 1 % gel 9-17 affected ity of 00:00: area(s) 2 [place] 00 (two) Medical times Branch daily. clindamycin 2020-0 Yes [id number] Apply to [facility] 1 % gel 9-17 affected ity of 00:00: area(s) 2 [place] 00 (two) Medical times Branch daily. clindamycin 2020-0 Yes [id number] Apply to [facility] 1 % gel 9-17 affected ity of 00:00: area(s) 2 [place] 00 (two) Medical times Branch daily. clindamycin 2020-0 Yes [id number] Apply to [facility] 1 % gel 9-17 affected ity of 00:00: area(s) 2 [place] 00 (two) Medical times Branch daily. clindamycin 2020-0 Yes [id number] Apply to Univers 1 % gel 9-17 affected ity of 00:00: area(s) 2 [place] 00 (two) Medical times Branch daily. clindamycin 2020-0 Yes [id number] Apply to Univers 1 % gel 9-17 affected ity of 00:00: area(s) 2 [place] 00 (two) Medical times Branch daily. clindamycin 2020-0 Yes [id number] Apply to [facility] 1 % gel 9-17 affected ity of 00:00: area(s) 2 [place] 00 (two) Medical times Branch daily. clindamycin 2020-0 Yes [id number] Apply to Univers 1 % gel 9-17 affected ity of 00:00: area(s) 2 [place] 00 (two) Medical times Branch daily. clindamycin 2020-0 Yes [id number] Apply to [facility] 1 % gel 9-17 affected ity of 00:00: area(s) 2 [place] 00 (two) Medical times Branch daily. clindamycin 2020-0 Yes [id number] Apply to Univers 1 % gel 9-17 affected ity of 00:00: area(s) 2 [place] 00 (two) Medical times Branch daily. clindamycin 2020-0 Yes [id number] Apply to Univers 1 % gel 9-17 affected ity of 00:00: area(s) 2 [place] 00 (two) Medical times Branch daily. clindamycin 2020-0 Yes [id number] Apply to Univers 1 % gel 9-17 affected ity of 00:00: area(s) 2 [place] 00 (two) Medical times Branch daily. clindamycin 2020-0 Yes [id number] Apply to Univers 1 % gel 9-17 affected ity of 00:00: area(s) 2 [place] 00 (two) Medical times Branch daily. clindamycin 2020-0 Yes [id number] Apply to Univers 1 % gel 9-17 affected ity of 00:00: area(s) 2 [place] 00 (two) Medical times Branch daily. clindamycin 2020-0 Yes [id number] Apply to Univers 1 % gel 9-17 affected ity of 00:00: area(s) 2 [place] 00 (two) Medical times Branch daily. clindamycin 2020-0 Yes [id number] Apply to Univers 1 % gel 9-17 affected ity of 00:00: area(s) 2 [place] 00 (two) Medical times Branch daily. clindamycin 2020-0 Yes [id number] Apply to Univers 1 % gel 9-17 affected ity of 00:00: area(s) 2 [place] 00 (two) Medical times Branch daily. clindamycin 2020-0 Yes [id number] Apply to Univers 1 % gel 9-17 affected ity of 00:00: area(s) 2 [place] 00 (two) Medical times Branch daily. clindamycin 2020-0 Yes [id number] Apply to Univers 1 % gel 9-17 affected ity of 00:00: area(s) 2 [place] 00 (two) Medical times Branch daily. clindamycin 2020-0 Yes [id number] Apply to Univers 1 % gel 9-17 affected ity of 00:00: area(s) 2 [place] 00 (two) Medical times Branch daily. clindamycin 2020-0 Yes [id number] Apply to Univers 1 % gel 9-17 affected ity of 00:00: area(s) 2 [place] 00 (two) Medical times Branch daily. clindamycin 2020-0 Yes [id number] Apply to Univers 1 % gel 9-17 affected ity of 00:00: area(s) 2 [place] 00 (two) Medical times Branch daily. clindamycin 2020-0 Yes [id number] Apply to Univers 1 % gel 9-17 affected ity of 00:00: area(s) 2 [place] 00 (two) Medical times Branch daily. fluticasone 2020-0 Yes [id number] 1{puff} Inhale 1 [facility] -salmeterol 8-06 Puff by [facility] (ADVAIR 00:00: mouth two of DISKUS) 00 times Medicin 500-50 daily. e MCG/DOSE inhaler fluticasone 2020-0 Yes [id number] 1{puff} Inhale 1 [facility] -salmeterol 8-06 Puff by [facility] (ADVAIR 00:00: mouth two of DISKUS) 00 times Medicin 500-50 daily. e MCG/DOSE inhaler fluticasone 2020-0 Yes [id number] 1{puff} Inhale 1 [facility] -salmeterol 8-06 Puff by [facility] (ADVAIR 00:00: mouth two of DISKUS) 00 times Medicin 500-50 daily. e MCG/DOSE inhaler fluticasone 2020-0 Yes [id number] 1{puff} Inhale 1 [facility] -salmeterol 8-06 Puff by [facility] (ADVAIR 00:00: mouth two of DISKUS) 00 times Medicin 500-50 daily. e MCG/DOSE inhaler fluticasone 2020-0 Yes [id number] 1{puff} Inhale 1 [facility] -salmeterol 8-06 Puff by [facility] (ADVAIR 00:00: mouth two of DISKUS) 00 times Medicin 500-50 daily. e MCG/DOSE inhaler fluticasone 2020-0 Yes [id number] 1{puff} Inhale 1 [facility] -salmeterol 8-06 Puff by [facility] (ADVAIR 00:00: mouth two of DISKUS) 00 times Medicin 500-50 daily. e MCG/DOSE inhaler fluticasone 2019- Yes [id number] 1{puff} Inhale 1 [facility] -salmeterol 8-06 Puff by [employer] (ADVAIR 00:00: mouth two of DISKUS) 00 times Medicin 500-50 daily. e MCG/DOSE inhaler fluticasone 2019- Yes [id number] 1{puff} Inhale 1 [facility] -salmeterol 8- Puff by [employer] (ADVAIR 00:00: mouth two of DISKUS) 00 times Medicin 500-50 daily. e MCG/DOSE inhaler lamoTRIgine lamoTRIgine Yes HECTOR TAKE 2 UT 100 MG Oral 100 MG Oral 8-05 STORM M.D. TABLETS BY [facility]ici Tablet Tablet 00:00: MOUTH ans 00 BEDTIME Na 2019- No [SUPREP] [facility] Sulfate-K 01-26 [facility] as [facility] Sulfate-Mg 00:00: 00:00 directed. o f Sulf 00 :00 Medicin (SUPREP e BOWEL PREP KIT) 17.5-3.13-1 .6 GM/177ML SOLN Na 2019- No [SUPREP] [facility] Sulfate-K 01-26 Take as [facility] Sulfate-Mg 00:00: 00:00 directed. o f Sulf 00 :00 Medicin (SUPREP e BOWEL PREP KIT) 17.5-3.13-1 .6 GM/177ML SOLN Ondansetron Ondansetron 2019-0 Yes YANELI Every 8 UT 4 MG [...] HOURS Tablet Tablet NEEDED FOR PAIN. ELIQUIS 2020- No [facility] DVT/PE 12-23 [facility] STARTER 00:00: 00:00 of PACK 5 MG 00 :00 Medicin TABS e HYDROcodone 2019- 2020- No 1{tbl} 1 tablet, Univers -acetaminop 12-21 Oral, ity of hen (NORCO 06:15: 05:11 ONCE, 1 Tim as 5) 5-325 mg 00 :00 dose, Tue Med ical tablet 1 12/22/19 at [facility] h tablet 0115, DAVEY iohexol 2019-2019- No 120mL 120 mL, Unive rs (OMNIPAQUE 12-21 Intravenou it y of 350 05:45: 05:45 s, ONCE, 1 [place] BULK-150 00 :00 dose, Tue Medica l mL) 12/22/19 at Branch injection 0045, 120 mL Routine aspirin 2019-0 2019- No 325mg 325 mg, Unive rs tablet 325 12-21 Oral, ity of mg 03:00: 03:34 ONCE, 1 [place] 00 :00 dose, [facility] 12/21/19 at Branch 2200, STAT methylPREDN methylPREDN 2019-0 Yes HOLGER PERAZA TAKE UT ISolone 4 ISolone 4 3-02 M.D. DIRECTED P hysici MG Oral MG Oral 00:00: ans Tablet Tablet 00 Therapy Therapy Pack Pack traMADol 50 2019-0 Yes [id number] 50mg Take 1 [facility] mg tablet 2-27 [id number] tablet by ity of 00:00: mouth [place] 00 every 6 Medical (six) Branch hours as needed for Pain (scale 4-6). traMADol 50 2020-0 Yes [id number] 50mg Take 1 [facility] mg tablet 2-27 [id number] tablet by ity of 00:00: mouth [place] 00 every 6 Medical (six) Branch hours as needed for Pain (scale 4-6). traMADol 50 2020-0 Yes [id number] 50mg Take 1 [facility] mg tablet 2-27 [id number] tablet by ity of 00:00: mouth [place] 00 every 6 Medical (six) Branch hours as needed for Pain (scale 4-6). traMADol 50 2020-0 Yes [id number] 50mg Take 1 [facility] mg tablet 2-27 [id number] tablet by ity of 00:00: mouth [place] 00 every 6 Medical (six) Branch hours as needed for Pain (scale 4-6). traMADol 50 2020-0 Yes [id number] 50mg Take 1 [facility] mg tablet 2-27 [id number] tablet by ity of 00:00: mouth [place] 00 every 6 Medical (six) Branch hours as needed for Pain (scale 4-6). traMADol 50 2020-0 Yes [id number] 50mg Take 1 [facility] mg tablet 2-27 [id number] tablet by ity of 00:00: mouth [place] 00 every 6 Medical (six) Branch hours as needed for Pain (scale 4-6). traMADol 50 2020-0 Yes [id number] 50mg Take 1 [facility] mg tablet 2-27 [id number] tablet by ity of 00:00: mouth [place] 00 every 6 Medical (six) Branch hours as needed for Pain (scale 4-6). traMADol 50 2020-0 Yes [id number] 50mg Take 1 [facility] mg tablet 2-27 [id number] tablet by ity of 00:00: mouth [place] 00 every 6 Medical (six) Branch hours as needed for Pain (scale 4-6). traMADol 50 2020-0 Yes [id number] 50mg Take 1 [facility] mg tablet 2- [id number] tablet by ity of 00:00: mouth [place] 00 every 6 Medical (six) Branch hours as needed for Pain (scale 4-6). traMADol 50 2020-0 Yes [id number] 50mg Take 1 [facility] mg tablet 2-27 [id number] tablet by ity of 00:00: mouth [place] 00 every 6 Medical (six) Branch hours as needed for Pain (scale 4-6). traMADol 50 2020-0 Yes [id number] 50mg Take 1 [facility] mg tablet 2-27 [id number] tablet by ity of 00:00: mouth [place] 00 every 6 Medical (six) Branch hours as needed for Pain (scale 4-6). traMADol 50 2020-0 Yes [id number] 50mg Take 1 [facility] mg tablet 2-27 [id number] tablet by ity of 00:00: mouth [place] 00 every 6 Medical (six) Branch hours as needed for Pain (scale 4-6). traMADol 50 2020-0 Yes [id number] 50mg Take 1 [facility] mg tablet 2-27 [id number] tablet by ity of 00:00: mouth [place] 00 every 6 Medical (six) Branch hours as needed for Pain (scale 4-6). traMADol 50 2020-0 Yes [id number] 50mg Take 1 [facility] mg tablet 2-27 [id number] tablet by ity of 00:00: mouth [place] 00 every 6 Medical (six) Branch hours as needed for Pain (scale 4-6). traMADol 50 2020-0 Yes [id number] 50mg Take 1 [facility] mg tablet 2-27 [id number] tablet by ity of 00:00: mouth [place] 00 every 6 Medical (six) Branch hours as needed for Pain (scale 4-6). traMADol 50 2020-0 Yes [id number] 50mg Take 1 [facility] mg tablet 2-27 [id number] tablet by ity of 00:00: mouth [place] 00 every 6 Medical (six) Branch hours as needed for Pain (scale 4-6). traMADol 50 2020-0 Yes [id number] 50mg Take 1 [facility] mg tablet 2-27 [id number] tablet by ity of 00:00: mouth [place] 00 every 6 Medical (six) Branch hours as needed for Pain (scale 4-6). traMADol 50 2020-0 Yes [id number] 50mg Take 1 [facility] mg tablet 2-27 [id number] tablet by ity of 00:00: mouth [place] 00 every 6 Medical (six) Branch hours as needed for Pain (scale 4-6). traMADol 50 2020-0 Yes [id number] 50mg Take 1 [facility] mg tablet 2-27 [id number] tablet by ity of 00:00: mouth [place] 00 every 6 Medical (six) Branch hours as needed for Pain (scale 4-6). traMADol 50 2020-0 Yes [id number] 50mg Take 1 [facility] mg tablet 2-27 [id number] tablet by ity of 00:00: mouth [place] 00 every 6 Medical (six) Branch hours as needed for Pain (scale 4-6). traMADol 50 2020-0 Yes [id number] 50mg Take 1 [facility] mg tablet 2-27 [id number] tablet by ity of 00:00: mouth [place] 00 every 6 Medical (six) Branch hours as needed for Pain (scale 4-6). traMADol 50 2020-0 Yes [id number] 50mg Take 1 [facility] mg tablet 2-27 [id number] tablet by ity of 00:00: mouth [place] 00 every 6 Medical (six) Branch hours as needed for Pain (scale 4-6). traMADol 50 2020-0 Yes [id number] 50mg Take 1 [facility] mg tablet 2-27 [id number] tablet by ity of 00:00: mouth [place] 00 every 6 Medical (six) Branch hours as needed for Pain (scale 4-6). traMADol 50 2020-0 Yes [id number] 50mg Take 1 [facility] mg tablet 2-27 [id number] tablet by ity of 00:00: mouth [place] 00 every 6 Medical (six) Branch hours as needed for Pain (scale 4-6). traMADol 50 2020-0 Yes [id number] 50mg Take 1 [facility] mg tablet 2-27 [id number] tablet by ity of 00:00: mouth [place] 00 every 6 Medical (six) Branch hours as needed for Pain (scale 4-6). traMADol 50 2020-0 Yes [id number] 50mg Take 1 [facility] mg tablet 2-27 [id number] tablet by ity of 00:00: mouth [place] 00 every 6 Medical (six) Branch hours as needed for Pain (scale 4-6). traMADol 50 2020-0 Yes [id number] 50mg Take 1 [facility] mg tablet 2-27 [id number] tablet by ity of 00:00: mouth [place] 00 every 6 Medical (six) Branch hours as needed for Pain (scale 4-6). traMADol 50 2020-0 Yes [id number] 50mg Take 1 [facility] mg tablet 2-27 [id number] tablet by ity of 00:00: mouth [place] 00 every 6 Medical (six) Branch hours as needed for Pain (scale 4-6). traMADol 50 2020-0 Yes [id number] 50mg Take 1 [facility] mg tablet 2-27 [id number] tablet by ity of 00:00: mouth [place] 00 every 6 Medical (six) Branch hours as needed for Pain (scale 4-6). traMADol 50 2020-0 Yes [id number] 50mg Take 1 [facility] mg tablet 2-27 [id number] tablet by ity of 00:00: mouth [place] 00 every 6 Medical (six) Branch hours as needed for Pain (scale 4-6). traMADol 50 2020-0 Yes [id number] 50mg Take 1 [facility] mg tablet 2-27 [id number] tablet by ity of 00:00: mouth [place] 00 every 6 Medical (six) Branch hours as needed for Pain (scale 4-6). traMADol 50 2020-0 Yes [id number] 50mg Take 1 [facility] mg tablet 2-27 [id number] tablet by ity of 00:00: mouth [place] 00 every 6 Medical (six) Branch hours as needed for Pain (scale 4-6). traMADol 50 2020-0 Yes [id number] 50mg Take 1 [facility] mg tablet 08-20 [id number] tablet by ity of 00:00: mouth [place] 00 every 6 Medical (six) Branch hours as needed for Pain (scale 4-6). traMADol 50 2020-0 Yes [id number] 50mg Take 1 [facility] mg tablet 08-20 [id number] tablet by ity of 00:00: mouth [place] 00 every 6 Medical (six) Branch hours as needed for Pain (scale 4-6). traMADol 50 2020-0 Yes [id number] 50mg Take 1 [facility] mg tablet 08-20 [id number] tablet by ity of 00:00: mouth [place] 00 every 6 Medical (six) Branch hours as needed for Pain (scale 4-6). traMADol 50 2020-0 Yes [id number] 50mg Take 1 [facility] mg tablet 08-20 [id number] tablet by ity of 00:00: mouth [place] 00 every 6 Medical (six) Branch hours as needed for Pain (scale 4-6). traMADol 50 2020-0 Yes [id number] 50mg Take 1 [facility] mg tablet 08-20 [id number] tablet by ity of 00:00: mouth [place] 00 every 6 Medical (six) Branch hours as needed for Pain (scale 4-6). methocarbam 2020-0 2020- No 750mg Take 750 [facility] ol 2-27 11-19 mg by [place] (ROBAXIN) 00:00: 00:00 mouth four o f 750 MG 00 :00 times Medicin tablet daily. e methocarbam 2020-0 2020- No 750mg Take 750 [facility] ol 2-27 11-19 mg by [place] (ROBAXIN) 00:00: 00:00 mouth four o f 750 MG 00 :00 times Medicin tablet daily. e methocarbam 2020-0 2020- No [id number] 1500mg Take 2 Univers ol 750 mg 2-27 03-03 [id number] tablets by i ty of tablet 00:00: 05:59 mouth 4 [place] 00 :00 (four) Medical times Branch daily for 4 days. Mesalamine Mesalamine 2020-0 Yes KOBE 2 Q0.5D TAKE 2 UT 400 MG Oral 400 MG Oral 2-26 OBONYANO CAPSULE [facility] Capsule Capsule 00:00: PROVIDER ENROLLMENT SPECIALIST Twice ans Delayed Delayed 00 daily Release Release TDD:1.6gm Trezix Trezix 2020-0 Yes ISAI TAKE 2 UT 320.5-30-16 320.5-30-16 1-20 KAY CAPSULES [facility] MG Oral MG Oral 00:00: PROVIDER ENROLLMENT SPECIALIST BY MOUTH ans Capsule Capsule 00 EVERY 4 TO 6 HOURS NEEDED FOR PAIN ondansetron 2020-0 Yes [id number] 4mg Take 1 [facility] 4 mg 1-10 tablet by ity of disintegrat 00:00: mouth [place] ing tablet 00 every 12 Medic al (twelve) Branch hours as needed for Nausea and Vomiting (N/V). ondansetron 2020-0 Yes [id number] 4mg Take 1 [facility] 4 mg 1-10 tablet by ity of disintegrat 00:00: mouth [place] ing tablet 00 every 12 Medic al (twelve) Branch hours as needed for Nausea and Vomiting (N/V). ondansetron 2020-0 Yes [id number] 4mg Take 1 [facility] 4 mg 1-10 tablet by ity of disintegrat 00:00: mouth [place] ing tablet 00 every 12 Medic al (twelve) Branch hours as needed for Nausea and Vomiting (N/V). ondansetron 2020-0 Yes [id number] 4mg Take 1 [facility] 4 mg 1-10 tablet by ity of disintegrat 00:00: mouth [place] ing tablet 00 every 12 Medic al (twelve) Branch hours as needed for Nausea and Vomiting (N/V). ondansetron 2020-0 Yes [id number] 4mg Take 1 [facility] 4 mg 1-10 tablet by ity of disintegrat 00:00: mouth [place] ing tablet 00 every 12 Medic al (twelve) Branch hours as needed for Nausea and Vomiting (N/V). ondansetron 2020-0 Yes [id number] 4mg Take 1 [facility] 4 mg 1-10 tablet by ity of disintegrat 00:00: mouth [place] ing tablet 00 every 12 Medic al (twelve) Branch hours as needed for Nausea and Vomiting (N/V). ondansetron 2020-0 Yes [id number] 4mg Take 1 [facility] 4 mg 1-10 tablet by ity of disintegrat 00:00: mouth [place] ing tablet 00 every 12 Medic al (twelve) Branch hours as needed for Nausea and Vomiting (N/V). ondansetron 2020-0 Yes [id number] 4mg Take 1 [facility] 4 mg 1-10 tablet by ity of disintegrat 00:00: mouth [place] ing tablet 00 every 12 Medic al (twelve) Branch hours as needed for Nausea and Vomiting (N/V). ondansetron 2020-0 Yes [id number] 4mg Take 1 [facility] 4 mg 1-10 tablet by ity of disintegrat 00:00: mouth [place] ing tablet 00 every 12 Medic al (twelve) Branch hours as needed for Nausea and Vomiting (N/V). ondansetron 2020-0 Yes [id number] 4mg Take 1 [facility] 4 mg 1-10 tablet by ity of disintegrat 00:00: mouth [place] ing tablet 00 every 12 Medic al (twelve) Branch hours as needed for Nausea and Vomiting (N/V). ondansetron 2020-0 Yes [id number] 4mg Take 1 [facility] 4 mg 1-10 tablet by ity of disintegrat 00:00: mouth [place] ing tablet 00 every 12 Medic al (twelve) Branch hours as needed for Nausea and Vomiting (N/V). ondansetron 2020-0 Yes [id number] 4mg Take 1 [facility] 4 mg 1-10 tablet by ity of disintegrat 00:00: mouth [place] ing tablet 00 every 12 Medic al (twelve) Branch hours as needed for Nausea and Vomiting (N/V). ondansetron 2020-0 Yes [id number] 4mg Take 1 [facility] 4 mg 1-10 tablet by ity of disintegrat 00:00: mouth [place] ing tablet 00 every 12 Medic al (twelve) Branch hours as needed for Nausea and Vomiting (N/V). ondansetron 2020-0 Yes [id number] 4mg Take 1 Univers 4 mg 1-10 tablet by ity of disintegrat 00:00: mouth [place] ing tablet 00 every 12 Medic al (twelve) Branch hours as needed for Nausea and Vomiting (N/V). ondansetron 2020-0 Yes [id number] 4mg Take 1 [facility] 4 mg 1-10 tablet by ity of disintegrat 00:00: mouth [place] ing tablet 00 every 12 Medic al (twelve) Branch hours as needed for Nausea and Vomiting (N/V). ondansetron 2020-0 Yes [id number] 4mg Take 1 Univers 4 mg 1-10 tablet by ity of disintegrat 00:00: mouth [place] ing tablet 00 every 12 Medic al (twelve) Branch hours as needed for Nausea and Vomiting (N/V). ondansetron 2020-0 Yes [id number] 4mg Take 1 Univers 4 mg 1-10 tablet by ity of disintegrat 00:00: mouth [place] ing tablet 00 every 12 Medic al (twelve) Branch hours as needed for Nausea and Vomiting (N/V). ondansetron 2020-0 Yes [id number] 4mg Take 1 [facility] 4 mg 1-10 tablet by ity of disintegrat 00:00: mouth [place] ing tablet 00 every 12 Medic al (twelve) Branch hours as needed for Nausea and Vomiting (N/V). ondansetron 2020-0 Yes [id number] 4mg Take 1 Univers 4 mg 1-10 tablet by ity of disintegrat 00:00: mouth [place] ing tablet 00 every 12 Medic al (twelve) Branch hours as needed for Nausea and Vomiting (N/V). ondansetron 2020-0 Yes [id number] 4mg Take 1 Univers 4 mg 1-10 tablet by ity of disintegrat 00:00: mouth [place] ing tablet 00 every 12 Medic al (twelve) Branch hours as needed for Nausea and Vomiting (N/V). ondansetron 2020-0 Yes [id number] 4mg Take 1 [facility] 4 mg 1-10 tablet by ity of disintegrat 00:00: mouth [place] ing tablet 00 every 12 Medic al (twelve) Branch hours as needed for Nausea and Vomiting (N/V). ondansetron 2020-0 Yes [id number] 4mg Take 1 [facility] 4 mg 1-10 tablet by ity of disintegrat 00:00: mouth [place] ing tablet 00 every 12 Medic al (twelve) Branch hours as needed for Nausea and Vomiting (N/V). ondansetron 2020-0 Yes [id number] 4mg Take 1 [facility] 4 mg 1-10 tablet by ity of disintegrat 00:00: mouth [place] ing tablet 00 every 12 Medic al (twelve) Branch hours as needed for Nausea and Vomiting (N/V). ondansetron 2020-0 Yes [id number] 4mg Take 1 [facility] 4 mg 1-10 tablet by ity of disintegrat 00:00: mouth [place] ing tablet 00 every 12 Medic al (twelve) Branch hours as needed for Nausea and Vomiting (N/V). ondansetron 2020-0 Yes [id number] 4mg Take 1 [facility] 4 mg 1-10 tablet by ity of disintegrat 00:00: mouth [place] ing tablet 00 every 12 Medic al (twelve) Branch hours as needed for Nausea and Vomiting (N/V). ondansetron 2020-0 Yes [id number] 4mg Take 1 [facility] 4 mg 1-10 tablet by ity of disintegrat 00:00: mouth [place] ing tablet 00 every 12 Medic al (twelve) Branch hours as needed for Nausea and Vomiting (N/V). ondansetron 2020-0 Yes [id number] 4mg Take 1 [facility] 4 mg 1-10 tablet by ity of disintegrat 00:00: mouth [place] ing tablet 00 every 12 Medic al (twelve) Branch hours as needed for Nausea and Vomiting (N/V). ondansetron 2020-0 Yes [id number] 4mg Take 1 [facility] 4 mg 1-10 tablet by ity of disintegrat 00:00: mouth [place] ing tablet 00 every 12 Medic al (twelve) Branch hours as needed for Nausea and Vomiting (N/V). ondansetron 2020-0 Yes [id number] 4mg Take 1 [facility] 4 mg 1-10 tablet by ity of disintegrat 00:00: mouth [place] ing tablet 00 every 12 Medic al (twelve) Branch hours as needed for Nausea and Vomiting (N/V). ondansetron 2020-0 Yes [id number] 4mg Take 1 [facility] 4 mg 1-10 tablet by ity of disintegrat 00:00: mouth [place] ing tablet 00 every 12 Medic al (twelve) Branch hours as needed for Nausea and Vomiting (N/V). ondansetron 2020-0 Yes [id number] 4mg Take 1 [facility] 4 mg 1-10 tablet by ity of disintegrat 00:00: mouth [place] ing tablet 00 every 12 Medic al (twelve) Branch hours as needed for Nausea and Vomiting (N/V). ondansetron 2020-0 Yes [id number] 4mg Take 1 [facility] 4 mg 1-10 tablet by ity of disintegrat 00:00: mouth [place] ing tablet 00 every 12 Medic al (twelve) Branch hours as needed for Nausea and Vomiting (N/V). ondansetron 2020-0 Yes [id number] 4mg Take 1 [facility] 4 mg 1-10 tablet by ity of disintegrat 00:00: mouth [place] ing tablet 00 every 12 Medic al (twelve) Branch hours as needed for Nausea and Vomiting (N/V). ondansetron 2020-0 Yes [id number] 4mg Take 1 [facility] 4 mg 1-10 tablet by ity of disintegrat 00:00: mouth [place] ing tablet 00 every 12 Medic al (twelve) Branch hours as needed for Nausea and Vomiting (N/V). ondansetron 2020-0 Yes [id number] 4mg Take 1 [facility] 4 mg 1-10 tablet by ity of disintegrat 00:00: mouth [place] ing tablet 00 every 12 Medic al (twelve) Branch hours as needed for Nausea and Vomiting (N/V). ondansetron 2020-0 Yes [id number] 4mg Take 1 [facility] 4 mg 1-10 tablet by ity of disintegrat 00:00: mouth [place] ing tablet 00 every 12 Medic al (twelve) Branch hours as needed for Nausea and Vomiting (N/V). ondansetron 2020-0 Yes [id number] 4mg Take 1 [facility] 4 mg 1-10 tablet by ity of disintegrat 00:00: mouth [place] ing tablet 00 every 12 Medic al (twelve) Branch hours as needed for Nausea and Vomiting (N/V). ondansetron 2020-0 Yes [id number] 4mg Take 1 [facility] 4 mg 1-10 tablet by ity of disintegrat 00:00: mouth [place] ing tablet 00 every 12 Medic al (twelve) Branch hours as needed for Nausea and Vomiting (N/V). Pregabalin Pregabalin 2018-06 Yes ISAI Q0.3333D TAKE 1 UT 75 MG Oral 75 MG Oral 1-26 KAY CAPSULE 3 [facility] Capsule Capsule 00:00: PROVIDER ENROLLMENT SPECIALIST TIMES ans 00 DAILY. Ibuprofen Ibuprofen [...] Lidocaine 5 2018- Yes ROXANN APPLY 1 UT % External % External 8-12 JAMALYARIA PATCH TO [facility] Patch Patch 00:00: M.D. THE ans 00 AFFECTED AREA AND LEAVE IN PLACE FOR 12 HOURS, THEN REMOVE AND LEAVE OFF FOR 12 HOURS. Proventil Proventil Yes CASTILLO INHALE ONE UT HFA 108 (90 HFA 108 (90 812 CHITRA TO TWO [facility] Base) Base) 00:00: [...] Omeprazole Yes KOBE 1 QD TAKE 1 UT 40 MG Oral 40 MG Oral 01-23 OBONYANO CAPSULE [facility] Capsule Capsule 00:00: PROVIDER ENROLLMENT SPECIALIST DAILY ans Delayed Delayed 00 Release Release Yes COREY HOBSON 1 QD TAKE 1 UT 1/20 1-20 1/20 1-20 24 PROVIDER ENROLLMENT SPECIALIST TABLET [facility] MG-MCG Oral MG-MCG [...] ans Tablet Tablet 00 BEDTIME Neurontin Neurontin Yes ALANA JITENDRA Q0.3333D TAKE 1 UT 800 MG Oral 800 MG Oral 7-08 M.D. TABLET 3 [facility] Tablet Tablet 00:00: TIMES ans 00 DAILY. Baclofen 20 Baclofen 20 Yes ALANA JITENDRA Q0.3333D TAKE 1 UT MG Oral MG Oral 7-08 M.D. TABLET 3 [facility] Tablet Tablet 00:00: TIMES ans 00 DAILY NEEDED. SIMPONI 50 Yes [id number] INJECT 1 [facility] mg/0.5 mL 4-10 PEN (50 st pen 00:00: MG) Hospita injector 00 SUBCUTANEO l USLY EVERY 28 DAYS. SIMPONI 50 0 Yes [id number] INJECT 1 [facility] mg/0.5 mL 4-10 PEN (50 st pen 00:00: MG) Hospita injector 00 SUBCUTANEO l USLY EVERY 28 DAYS. SIMPONI 50 0 Yes [id number] INJECT 1 [facility] mg/0.5 mL 4-10 PEN (50 st pen 00:00: MG) Hospita injector 00 SUBCUTANEO l USLY EVERY 28 DAYS. cetirizine Yes TAKE ONE [facility] (ZyrTEC) 10 2-[address] [facility] tablet 00:00: MOUTH [facility]ospita 00 DAILY l hydrOXYzine Yes TAKE ONE [facility] (ATARAX) 25 2-[address] [facility] tablet 00:00: MOUTH [facility] 00 DAILY l cetirizine Yes TAKE ONE [facility] (ZyrTEC) 10 2-[address] [facility] tablet 00:00: MOUTH [facility] 00 DAILY l hydrOXYzine Yes TAKE ONE [facility] (ATARAX) 25 2-[address] [facility] tablet 00:00: MOUTH [facility] 00 DAILY l cetirizine Yes TAKE ONE [facility] (ZyrTEC) 10 2-[address] [facility] tablet 00:00: MOUTH [facility]osp[facility] 00 DAILY l hydrOXYzine 0 Yes TAKE ONE [facility] (ATARAX) 25 2-[address] [facility] tablet 00:00: MOUTH [facility] 00 DAILY l ADVAIR 2016-06 Yes INHALE ONE Metho di DISKUS 1-[address] 500-50 00:00: MOUTH [facility]ospita mcg/dose 00 TWICE A l DISKUS DAY ADVAIR 2016-06 Yes INHALE ONE Metho di DISKUS 1-[address] 500-50 00:00: MOUTH [facility]ospita mcg/dose 00 TWICE A l DISKUS DAY ADVAIR 2016-06 Yes INHALE ONE [facility] di [...] mg-20 mcg (24)/75 mg (4) per tablet buPROPion 2016-06 Yes 300mg QD Take 300 [...] mg-20 mcg (24)/75 mg (4) per tablet buPROPion 2016-06 Yes 300mg QD Take 300 [...] for mcg/actuati shortness on inhaler of breath. mometasone Yes 2{spray QD 2 sprays [facility] (NASONEX) 4-10 } into each st 50 00:00: nostril Hospita mcg/actuati 00 daily. l on nasal spray albuterol Yes 1{puff} Q6H Inhale 1-2 [facility] (PROAIR 4-[address] HFA,PROVENT 00:00: every 6 [place] 00 (six) l HFA,VENTOLI hours as N HFA) 90 needed for mcg/actuati shortness on inhaler of breath. mometasone Yes 2{spray QD 2 sprays [facility] [...] 0.5 MG 00:00: Hospita tablet 00 l clonAZEPAM 2015-06 Yes [facility] (KlonoPIN) 2-10 st 0.5 MG 00:00: Hospita tablet 00 l clonAZEPAM 2015-06 Yes [facility] (KlonoPIN) 2-10 st 0.5 MG 00:00: Hospita tablet 00 l gabapentin 2015-06 Yes 800mg Take 800 [facility] (NEURONTIN) 0-01 mg by [facility] 800 MG 00:00: mouth 3 of tablet 00 times Medicin daily. e escitalopra Yes 20mg QD Take 20 mg [facility] (LEXAPRO) 9-[address] 20 MG 00:00: daily. Hospita tablet 00 l escitalopra Yes 20mg QD Take 20 mg [facility] (LEXAPRO) 9-[address] 20 MG 00:00: daily. Hospita tablet 00 l escitalopra Yes 20mg QD Take 20 mg [...] tablet needed for Pain (scale 4-6). LOESTRIN FE Yes [id number] 1{tbl} Take 1 Tab [facility] (MICROGESTI 4-02 by mouth ity of N FE 00:00: daily. [place] [facility] ,) 1.5 Branch mg-30 mcg (21)/75 mg (7) tablet LOESTRIN Yes [id number] 1{tbl} Take 1 Tab [facility] (MICROGESTI 4-02 by mouth ity of N FE 00:00: daily. [facility] ,) 1.5 Branch mg-30 mcg (21)/75 mg (7) tablet LOESTRIN Yes [id number] 1{tbl} Take 1 Tab [facility] (MICROGESTI 4-02 by mouth ity of N FE 00:00: daily. [facility] ,) 1.5 Branch mg-30 mcg (21)/75 mg (7) tablet LOESTRIN Yes [id number] 1{tbl} Take 1 Tab [facility] (MICROGESTI 4-02 by mouth ity of N FE 00:00: daily. [place] ,) 1.5 Branch mg-30 mcg (21)/75 mg (7) tablet LOESTRIN FE Yes [id number] 1{tbl} Take 1 Tab [facility] (MICROGESTI 4-02 by mouth ity of N FE 00:00: daily. [place] [facility] ,) 1.5 Branch mg-30 mcg (21)/75 mg (7) tablet LOESTRIN FE Yes [id number] 1{tbl} Take 1 Tab [facility] (MICROGESTI 4-02 by mouth ity of N FE 00:00: daily. [place] ,) 1.5 Branch mg-30 mcg (21)/75 mg (7) tablet LOESTRIN FE Yes [id number] 1{tbl} Take 1 Tab [facility] (MICROGESTI 4-02 by mouth ity of N FE 00:00: daily. [place] ,) 1.5 Branch mg-30 mcg (21)/75 mg (7) tablet LOESTRIN FE Yes [id number] 1{tbl} Take 1 Tab [facility] (MICROGESTI 4-02 by mouth ity of N FE 00:00: daily. [place] ,) 1.5 Branch mg-30 mcg (21)/75 mg (7) tablet LOESTRIN FE Yes [id number] 1{tbl} Take 1 Tab [facility] (MICROGESTI 4-02 by mouth ity of N FE 00:00: daily. [place] ,) 1.5 Branch mg-30 mcg (21)/75 mg (7) tablet LOESTRIN FE Yes [id number] 1{tbl} Take 1 Tab [facility] (MICROGESTI 4-02 by mouth ity of N FE 00:00: daily. [place] ,) 1.5 Branch mg-30 mcg (21)/75 mg (7) tablet LOESTRIN FE Yes [id number] 1{tbl} Take 1 Tab [facility] (MICROGESTI 4-02 by mouth ity of N FE 00:00: daily. [place] ,) 1.5 Branch mg-30 mcg (21)/75 mg (7) tablet LOESTRIN FE Yes [id number] 1{tbl} Take 1 Tab [facility] (MICROGESTI 4-02 by mouth ity of N FE 00:00: daily. [place] ,) 1.5 Branch mg-30 mcg (21)/75 mg (7) tablet LOESTRIN FE Yes [id number] 1{tbl} Take 1 Tab [facility] (MICROGESTI 4-02 by mouth ity of N FE 00:00: daily. [place] ,) 1.5 Branch mg-30 mcg (21)/75 mg (7) tablet LOESTRIN FE Yes [id number] 1{tbl} Take 1 Tab [facility] (MICROGESTI 4-02 by mouth ity of N FE 00:00: daily. [place] ,) 1.5 Branch mg-30 mcg (21)/75 mg (7) tablet LOESTRIN FE Yes [id number] 1{tbl} Take 1 Tab [facility] (MICROGESTI 4-02 by mouth ity of N FE 00:00: daily. [place] ,) 1.5 Branch mg-30 mcg (21)/75 mg (7) tablet LOESTRIN Yes [id number] 1{tbl} Take 1 Tab [facility] (MICROGESTI 4-02 by mouth ity of N FE 00:00: daily. [place] ,) 1.5 Branch mg-30 mcg (21)/75 mg (7) tablet LOESTRIN FE Yes [id number] 1{tbl} Take 1 Tab [facility] (MICROGESTI 4-02 by mouth ity of N FE 00:00: daily. [place] ,) 1.5 Branch mg-30 mcg (21)/75 mg (7) tablet LOESTRIN Yes [id number] 1{tbl} Take 1 Tab [facility] (MICROGESTI 4-02 by mouth ity of N FE 00:00: daily. [place] ,) 1.5 Branch mg-30 mcg (21)/75 mg (7) tablet LOESTRIN FE Yes [id number] 1{tbl} Take 1 Tab [facility] (MICROGESTI 4-02 by mouth ity of N FE 00:00: daily. [place] ,) 1.5 Branch mg-30 mcg (21)/75 mg (7) tablet LOESTRIN FE Yes [id number] 1{tbl} Take 1 Tab [facility] (MICROGESTI 4-02 by mouth ity of N FE 00:00: daily. [place] ,) 1.5 Branch mg-30 mcg (21)/75 mg (7) tablet LOESTRIN FE Yes [id number] 1{tbl} Take 1 Tab [facility] (MICROGESTI 4-02 by mouth ity of N FE 00:00: daily. [place] ,) 1.5 Branch mg-30 mcg (21)/75 mg (7) tablet LOESTRIN FE Yes [id number] 1{tbl} Take 1 Tab [facility] (MICROGESTI 4-02 by mouth ity of N FE 00:00: daily. [place] ,) 1.5 Branch mg-30 mcg (21)/75 mg (7) tablet LOESTRIN FE Yes [id number] 1{tbl} Take 1 Tab [facility] (MICROGESTI 4-02 by mouth ity of N FE 00:00: daily. [place] ,) 1.5 Branch mg-30 mcg (21)/75 mg (7) tablet LOESTRIN FE Yes [id number] 1{tbl} Take 1 Tab [facility] (MICROGESTI 4-02 by mouth ity of N FE 00:00: daily. [place] ,) 1.5 Branch mg-30 mcg (21)/75 mg (7) tablet LOESTRIN FE Yes [id number] 1{tbl} Take 1 Tab [facility] (MICROGESTI 4-02 by mouth ity of N FE 00:00: daily. [place] ,) 1.5 Branch mg-30 mcg (21)/75 mg (7) tablet LOESTRIN FE Yes [id number] 1{tbl} Take 1 Tab [facility] (MICROGESTI 4-02 by mouth ity of N FE 00:00: daily. [place] ,) 1.5 Branch mg-30 mcg (21)/75 mg (7) tablet LOESTRIN FE Yes [id number] 1{tbl} Take 1 Tab [facility] (MICROGESTI 4-02 by mouth ity of N FE 00:00: daily. [place] ,) 1.5 Branch mg-30 mcg (21)/75 mg (7) tablet LOESTRIN FE Yes [id number] 1{tbl} Take 1 Tab [facility] (MICROGESTI 4-02 by mouth ity of N FE 00:00: daily. [place] ,) 1.5 Branch mg-30 mcg (21)/75 mg (7) tablet LOESTRIN FE Yes [id number] 1{tbl} Take 1 Tab [facility] (MICROGESTI 4-02 by mouth ity of N FE 00:00: daily. [place] ,) 1.5 Branch mg-30 mcg (21)/75 mg (7) tablet LOESTRIN FE Yes [id number] 1{tbl} Take 1 Tab [facility] (MICROGESTI 4-02 by mouth ity of N FE 00:00: daily. [place] ,) 1.5 Branch mg-30 mcg (21)/75 mg (7) tablet LOESTRIN FE Yes [id number] 1{tbl} Take 1 Tab [facility] (MICROGESTI 4-02 by mouth ity of N FE 00:00: daily. [place] ,) 1.5 Branch mg-30 mcg (21)/75 mg (7) tablet LOESTRIN FE Yes [id number] 1{tbl} Take 1 Tab [facility] (MICROGESTI 4-02 by mouth ity of N FE 00:00: daily. [place] ,) 1.5 Branch mg-30 mcg (21)/75 mg (7) tablet LOESTRIN FE Yes [id number] 1{tbl} Take 1 Tab [facility] (MICROGESTI 4-02 by mouth ity of N FE 00:00: daily. [place] ,) 1.5 Branch mg-30 mcg (21)/75 mg (7) tablet LOESTRIN FE Yes [id number] 1{tbl} Take 1 Tab [facility] (MICROGESTI 4-02 by mouth ity of N FE 00:00: daily. [place] ,) 1.5 Branch mg-30 mcg (21)/75 mg (7) tablet LOESTRIN FE Yes [id number] 1{tbl} Take 1 Tab [facility] (MICROGESTI 4-02 by mouth ity of N FE 00:00: daily. [place] ,) 1.5 Branch mg-30 mcg (21)/75 mg (7) tablet LOESTRIN Yes [id number] 1{tbl} Take 1 Tab [facility] (MICROGESTI 4-02 by mouth ity of N FE 00:00: daily. [place] ,) 1.5 Branch mg-30 mcg (21)/75 mg (7) tablet LOESTRIN Yes [id number] 1{tbl} Take 1 Tab [facility] (MICROGESTI 4-02 by mouth ity of N FE 00:00: daily. [facility] ,) 1.5 Branch mg-30 mcg (21)/75 mg (7) tablet LOESTRIN Yes [id number] 1{tbl} Take 1 Tab [facility] (MICROGESTI 4-02 by mouth ity of N FE 00:00: daily. [facility] ,) 1.5 Branch mg-30 mcg (21)/75 mg (7) tablet BUPROPION 2013-06 Yes [id number] 450mg Take 450 Univers HCL 2-11 mg by ity of (WELLBUTRIN 14:24: mouth [place] ORAL) [address] [facility] BUPROPION 2013-06 Yes [id number] 450mg Take 450 Univers HCL 2-11 mg by ity of (WELLBUTRIN 14:24: mouth [place] ORAL) [address] [facility] BUPROPION 2013-06 Yes [id number] 450mg Take 450 Univers HCL 2-11 mg by ity of (WELLBUTRIN 14:24: mouth [place] ORAL) [address] [facility] BUPROPION 2013-06 Yes [id number] 450mg Take 450 Univers HCL 2-11 mg by ity of (WELLBUTRIN 14:24: mouth [place] ORAL) [address] [facility] BUPROPION 2013-06 Yes [id number] 450mg Take 450 Univers HCL 2-11 mg by ity of (WELLBUTRIN 14:24: mouth [place] ORAL) [address] [facility] BUPROPION 2013-06 Yes [id number] 450mg Take 450 Univers HCL 2-11 mg by ity of (WELLBUTRIN 14:24: mouth [place] ORAL) 03 daily. Medical Branch BUPROPION 2013-06 Yes [id number] 450mg Take 450 Univers HCL 2-11 mg by ity of (WELLBUTRIN 14:24: mouth [place] ORAL) 03 daily. [facility] BUPROPION 2013-06 Yes [id number] 450mg Take 450 Univers HCL 2-11 mg by ity of (WELLBUTRIN 14:24: mouth [place] ORAL) 03 daily. [facility] traZODONE 2013-06 Yes 100mg Take 100 Uni vers (DESYREL) 2-11 mg by ity of 100 mg 14:24: mouth at [place] tablet 02 bedtime. [facility] traZODONE 2013-06 Yes 100mg Take 100 Uni vers (DESYREL) 2-11 mg by ity of 100 mg 14:24: mouth at [place] tablet 02 bedtime. [facility] traZODONE 2013-06 Yes 100mg Take 100 Uni vers (DESYREL) 2-11 mg by ity of 100 mg 14:24: mouth at [place] tablet 02 bedtime. [facility] traZODONE 2013-06 Yes 100mg Take 100 Uni vers (DESYREL) 2-11 mg by ity of 100 mg 14:24: mouth at [place] tablet 02 bedtime. [facility] traZODONE 2013-06 Yes 100mg Take 100 Uni vers (DESYREL) 2-11 mg by ity of 100 mg 14:24: mouth at [place] tablet 02 bedtime. [facility] traZODONE 2013-06 Yes 100mg Take 100 Uni vers (DESYREL) 2-11 mg by ity of 100 mg 14:24: mouth at [place] tablet 02 bedtime. [facility] traZODONE 2013-06 Yes 100mg Take 100 Uni vers (DESYREL) 2-11 mg by ity of 100 mg 14:24: mouth at [place] tablet 02 bedtime. [facility] traZODONE 2013-06 Yes 100mg Take 100 Uni vers (DESYREL) 2-11 mg by ity of 100 mg 14:24: mouth at [place] tablet [address] [facility] BUPROPION 2013-06 Yes [id number] 450mg Take 450 Univers HCL 2-11 mg by ity of (WELLBUTRIN 08:24: mouth [place] ORAL) 03 daily. [facility] BUPROPION 2013-06 Yes [id number] 450mg Take 450 Univers HCL 2-11 mg by ity of (WELLBUTRIN 08:24: mouth [place] ORAL) 03 daily. [facility] traZODONE 2013-06 Yes 100mg Take 100 Uni vers (DESYREL) 2-11 mg by ity of 100 mg 08:24: mouth at [place] tablet 02 bedtime. [facility] traZODONE 2013-06 Yes 100mg Take 100 Uni vers (DESYREL) 2-11 mg by ity of 100 mg 08:24: mouth at [place] tablet 02 bedtime. [facility] hydrOXYzine 2012-0 Yes 25mg Take 1 Tab [facility] (ATARAX) 25 6-03 by mouth 3 [facility] MG tablet 00:00: times of 00 daily as Medicin needed for e Itching. hydrOXYzine 0 Yes 25mg Take 1 Tab [facility] (ATARAX) 25 6-03 by mouth 3 [facility] MG tablet 00:00: times of 00 daily as Medicin needed for e Itching. hydrOXYzine 0 Yes 25mg Take 1 Tab [facility] (ATARAX) 25 6-03 by mouth 3 [facility] MG tablet 00:00: times of 00 daily as Medicin needed for e Itching. hydrOXYzine 0 Yes 25mg Take 1 Tab [facility] (ATARAX) 25 6-03 by mouth 3 [facility] MG tablet 00:00: times of 00 daily as Medicin needed for e Itching. hydrOXYzine 0 Yes 25mg Take 1 Tab [facility] (ATARAX) 25 6-03 by mouth 3 [facility] MG tablet 00:00: times of 00 daily as Medicin needed for e Itching. hydrOXYzine 2012-0 Yes 25mg Take 1 Tab [facility] (ATARAX) 25 6-03 by mouth 3 [facility] MG tablet 00:00: times of 00 daily as Medicin needed for e Itching. hydrOXYzine 2012-0 Yes 25mg Take 1 Tab [facility] (ATARAX) 25 6-03 by mouth 3 [facility] MG tablet 00:00: times of 00 daily as Medicin needed for e Itching. hydrOXYzine 2012-0 Yes 25mg Take 1 Tab [facility] (ATARAX) 25 6-03 by mouth 3 [facility] MG tablet 00:00: times of 00 daily as Medicin needed for e Itching. hydrOXYzine 2012-0 Yes 25mg Take 1 Tab [facility] (ATARAX) 25 6-03 by mouth 3 [facility] MG tablet 00:00: times of 00 daily as Medicin needed for e Itching. hydrOXYzine Yes 25mg Take 1 Tab [facility] (ATARAX) 25 6-03 by mouth 3 Co [facility] MG tablet 00:00: times of 00 daily as Medicin needed for e Itching. albuterol Yes [id number] 1{puff} Inhale 1-2 [facility] HFA 3-02 6 Puffs [facility] (PROVENTIL 00:00: mouth of HFA, 00 every 6 Medicin VENTOLIN hours as e HFA) 108 needed for (90 BASE) Wheezing. MCG/ACT inhaler albuterol Yes [id number] 1{puff} Inhale 1-2 [facility] HFA 3-02 6 Puffs [facility] (PROVENTIL 00:00: mouth of HFA, 00 every 6 Medicin VENTOLIN hours as e HFA) 108 needed for (90 BASE) Wheezing. MCG/ACT inhaler albuterol Yes [id number] 1{puff} Inhale 1-2 [facility] HFA 3-02 6 Puffs [facility] (PROVENTIL 00:00: mouth of HFA, 00 every 6 Medicin VENTOLIN hours as e HFA) 108 needed for (90 BASE) Wheezing. MCG/ACT inhaler albuterol Yes [id number] 1{puff} Inhale 1-2 [facility] HFA 3-02 6 Puffs [facility] (PROVENTIL 00:00: mouth of HFA, 00 every 6 Medicin VENTOLIN hours as e HFA) 108 needed for (90 BASE) Wheezing. MCG/ACT inhaler albuterol Yes [id number] 1{puff} Inhale 1-2 [facility] HFA 3-02 6 Puffs [facility] (PROVENTIL 00:00: mouth of HFA, 00 every 6 Medicin VENTOLIN hours as e HFA) 108 needed for (90 BASE) Wheezing. MCG/ACT inhaler Immunizations Ordered Filled Date Status Comments Source Immunization Name Immunization Name Pneumococcal 2022-04-05 Completed [facility] ge 20-Valent Conjugate 00:00:00 of Me dicine Vaccine Pneumococcal 2022-04-05 Completed [facility] ge 20-Valent Conjugate 00:00:00 of Me dicine Vaccine Pneumococcal 2022-04-05 Completed [facility] 20-Valent Conjugate 00:00:00 of Me dicine Vaccine Pneumococcal 2022-04-05 Completed [facility] 20-Valent Conjugate 00:00:00 of Me dicine Vaccine HPV 9-valent 2022-01-16 Completed [facility] 00:00:00 of Medicine HPV 9-valent 2022-01-16 Completed [facility] 00:00:00 of Medicine HPV 9-valent 2022-01-16 Completed [facility] 00:00:00 of Medicine HPV 9-valent 2022-01-16 Completed [facility] 00:00:00 of Medicine HPV 9-valent 2022-01-16 Completed [facility] 00:00:00 of Medicine HPV 9-valent 2022-01-16 Completed [facility] ge 00:00:00 of Medicine HPV 9-valent 2022-01-16 Completed [facility] 00:00:00 of Medicine HPV 9-valent 2022-01-16 Completed [facility] 00:00:00 of Medicine Moderna .25 2021-09-08 Completed [facility] Deangelo ege BOOSTER SARS-CoV-2 00:00:00 of Med icine Vaccination Moderna .25 2021-09-08 Completed [facility] BOOSTER SARS-CoV-2 00:00:00 of Med icine Vaccination Moderna .25 2021-09-08 Completed [facility] BOOSTER SARS-CoV-2 00:00:00 of Med icine Vaccination Moderna .25 2021-09-08 Completed [facility] BOOSTER SARS-CoV-2 00:00:00 of Med icine Vaccination Moderna .25 2021-09-08 Completed [facility] BOOSTER SARS-CoV-2 00:00:00 of Med icine Vaccination Moderna .25 2021-09-08 Completed [facility]ge BOOSTER SARS-CoV-2 00:00:00 of Med icine Vaccination Moderna .25 2021-09-08 Completed [facility] BOOSTER SARS-CoV-2 00:00:00 of Med icine Vaccination Moderna .25 2021-09-08 Completed [facility] BOOSTER SARS-CoV-2 00:00:00 of Med icine Vaccination Moderna .25 2021-09-08 Completed [facility] BOOSTER SARS-CoV-2 00:00:00 of Med icine Vaccination Moderna .25 2021-09-08 Completed [facility] BOOSTER SARS-CoV-2 00:00:00 of Med icine Vaccination Moderna .25 2021-09-08 Completed [facility] BOOSTER SARS-CoV-2 00:00:00 of Med icine Vaccination Moderna .25 2021-09-08 Completed [facility] BOOSTER SARS-CoV-2 00:00:00 of Med icine Vaccination Moderna .25 2021-09-08 Completed [facility] BOOSTER SARS-CoV-2 00:00:00 of Med icine Vaccination Moderna .25 2021-09-08 Completed [facility] BOOSTER SARS-CoV-2 00:00:00 of Med icine Vaccination Influenza Quad-PF 2021-05-03 Completed [facility] 00:00:00 of Medicine Moderna .25 2021-05-03 Completed [facility] ege BOOSTER SARS-CoV-2 00:00:00 of Med icine Vaccination Influenza Quad-PF 2021-05-03 Completed [facility] 00:00:00 of Medicine Moderna .25 2021-05-03 Completed [facility] ege BOOSTER SARS-CoV-2 00:00:00 of Med icine Vaccination Influenza Quad-PF 2021-05-03 Completed [facility] 00:00:00 of Medicine Moderna .25 2021-05-03 Completed [facility] ege BOOSTER SARS-CoV-2 00:00:00 of Med icine Vaccination Influenza Quad-PF 2021-05-03 Completed [facility] 00:00:00 of Medicine Moderna .25 2021-05-03 Completed [facility] BOOSTER SARS-CoV-2 00:00:00 of Med icine Vaccination Influenza Quad-PF 2021-05-03 Completed [facility] 00:00:00 of Medicine Moderna .25 2021-05-03 Completed [facility] BOOSTER SARS-CoV-2 00:00:00 of Med icine Vaccination Influenza Quad-PF 2021-05-03 Completed [facility] 00:00:00 of Medicine Moderna .25 2021-05-03 Completed [facility] BOOSTER SARS-CoV-2 00:00:00 of Med icine Vaccination Influenza Quad-PF 2021-05-03 Completed [facility] 00:00:00 of Medicine Moderna .25 2021-05-03 Completed [facility] BOOSTER SARS-CoV-2 00:00:00 of Med icine Vaccination Influenza Quad-PF 2021-05-03 Completed [facility] 00:00:00 of Medicine Moderna .25 2021-05-03 Completed [facility] BOOSTER SARS-CoV-2 00:00:00 of Med icine Vaccination Influenza Quad-PF 2021-05-03 Completed [facility] 00:00:00 of Medicine Moderna .25 2021-05-03 Completed [facility] BOOSTER SARS-CoV-2 00:00:00 of Med icine Vaccination Influenza Quad-PF 2021-05-03 Completed [facility] 00:00:00 of Medicine Moderna .25 2021-05-03 Completed [facility] Booster Sars-COV-2 00:00:00 of Med icine Vaccination Influenza Quad-PF 2021-05-03 Completed [facility] 00:00:00 of Medicine Moderna .25 2021-05-03 Completed [facility] BOOSTER SARS-CoV-2 00:00:00 of Med icine Vaccination Influenza Quad-PF 2021-05-03 Completed [facility] 00:00:00 of Medicine Moderna .25 2021-05-03 Completed [facility] BOOSTER SARS-CoV-2 00:00:00 of Med icine Vaccination Influenza Quad-PF 2021-05-03 Completed [facility] 00:00:00 of Medicine Moderna .25 2021-05-03 Completed [facility] BOOSTER SARS-CoV-2 00:00:00 of Med icine Vaccination Influenza Quad-PF 2021-05-03 Completed [facility] 00:00:00 of Medicine Moderna .25 2021-05-03 Completed [facility] BOOSTER SARS-CoV-2 00:00:00 of Med icine Vaccination Influenza Quad-PF 2021-05-03 Completed [facility] 00:00:00 of Medicine Moderna .25 2021-05-03 Completed [facility] ege BOOSTER SARS-CoV-2 00:00:00 of Med icine Vaccination Influenza Quad-PF 2021-05-03 Completed [facility] 00:00:00 of Medicine Moderna .25mL 2021-05-03 Completed [facility] BOOSTER SARS-CoV-2 00:00:00 of Med icine Vaccination Influenza Quad-PF 2021-05-03 Completed [facility] 00:00:00 of Medicine Moderna .25mL 2021-05-03 Completed [facility] ege BOOSTER SARS-CoV-2 00:00:00 of Med icine Vaccination Moderna SARS-CoV-2 2020-08-17 Completed [facility] Vaccination 00:00:00 of Medicine Moderna SARS-CoV-2 2020-08-17 Completed [facility] Vaccination 00:00:00 of Medicine Moderna .5mL 2020-08-17 Completed [facility] SARS-CoV-2 00:00:00 of Medicine Vaccination Moderna .5mL 2020-08-17 Completed [facility] ge SARS-CoV-2 00:00:00 of Medicine Vaccination Moderna .5mL 2020-08-17 Completed [facility] ge SARS-CoV-2 00:00:00 of Medicine Vaccination Moderna .5mL 2020-08-17 Completed [facility] ge SARS-CoV-2 00:00:00 of Medicine Vaccination Moderna .5mL 2020-08-17 Completed [facility] ge SARS-CoV-2 00:00:00 of Medicine Vaccination Moderna .5mL 2020-08-17 Completed [facility] ge SARS-CoV-2 00:00:00 of Medicine Vaccination Moderna .5mL 2020-08-17 Completed [facility] ge SARS-CoV-2 00:00:00 of Medicine Vaccination Moderna SARS-CoV-2 2020-08-17 Completed [facility] Vaccination 00:00:00 of Medicine Moderna SARS-CoV-2 2020-08-17 Completed [facility] Vaccination 00:00:00 of Medicine Moderna SARS-CoV-2 2020-08-17 Completed [facility] Vaccination 00:00:00 of Medicine Moderna SARS-CoV-2 2020-08-17 Completed [facility] Vaccination 00:00:00 of Medicine Moderna SARS-CoV-2 2020-08-17 Completed [facility] Vaccination 00:00:00 of Medicine Moderna SARS-CoV-2 2020-08-17 Completed [facility] Vaccination 00:00:00 of Medicine Moderna SARS-CoV-2 2020-08-17 Completed [facility] Vaccination 00:00:00 of Medicine Moderna SARS-CoV-2 2020-08-17 Completed [facility] Vaccination 00:00:00 of Medicine Moderna SARS-CoV-2 2020-08-17 Completed [facility] Vaccination 00:00:00 of Medicine Moderna SARS-CoV-2 2020-08-17 Completed [facility] Vaccination 00:00:00 of Medicine Moderna SARS-CoV-2 2020-08-17 Completed [facility] Vaccination 00:00:00 of Medicine Moderna SARS-CoV-2 2020-08-17 Completed [facility] Vaccination 00:00:00 of Medicine Moderna SARS-CoV-2 2020-07-16 Completed [facility] Vaccination 00:00:00 of Medicine Moderna SARS-CoV-2 2020-07-16 Completed [facility] [facility]00 of Medicine Moderna .5mL 2020-07-16 Completed [facility] SARS-CoV-2 00:00:00 of Medicine Vaccination Moderna .5mL 2020-07-16 Completed [facility] SARS-CoV-2 00:00:00 of Medicine Vaccination Moderna .5mL 2020-07-16 Completed [facility] SARS-CoV-2 00:00:00 of Medicine Vaccination Moderna .5mL 2020-07-16 Completed [facility] SARS-CoV-2 00:00:00 of Medicine Vaccination Moderna .5mL 2020-07-16 Completed [facility] SARS-CoV-2 00:00:00 of Medicine Vaccination Moderna .5mL 2020-07-16 Completed [facility] SARS-CoV-2 00:00:00 of Medicine Vaccination Moderna .5mL 2020-07-16 Completed [facility] SARS-CoV-2 00:00:00 of Medicine Vaccination Moderna SARS-CoV-2 2020-07-16 Completed [facility] Vaccination 00:00:00 of Medicine Moderna SARS-CoV-2 2020-07-16 Completed [facility] Vaccination 00:00:00 of Medicine Moderna SARS-CoV-2 2020-07-16 Completed [facility] Vaccination 00:00:00 of Medicine Moderna SARS-CoV-2 2020-07-16 Completed [facility] Vaccination 00:00:00 of Medicine Moderna SARS-CoV-2 2020-07-16 Completed [facility] Vaccination 00:00:00 of Medicine Moderna SARS-CoV-2 2020-07-16 Completed [facility] Vaccination 00:00:00 of Medicine Moderna SARS-CoV-2 2020-07-16 Completed [facility] Vaccination 00:00:00 of Medicine Moderna SARS-CoV-2 2020-07-16 Completed [facility] Vaccination 00:00:00 of Medicine Moderna SARS-CoV-2 2020-07-16 Completed [facility] Vaccination 00:00:00 of Medicine Moderna SARS-CoV-2 2020-07-16 Completed [facility] Vaccination 00:00:00 of Medicine Moderna SARS-CoV-2 2020-07-16 Completed [facility] Vaccination 00:00:00 of Medicine Moderna SARS-CoV-2 2020-07-16 Completed [facility] Vaccination 00:00:00 of Medicine Influenza Quad-PF 2020-05-12 Completed [facility] 00:00:00 of Medicine Influenza Quad-PF 2020-05-12 Completed [facility] 00:00:00 of Medicine Influenza Quad-PF 2020-05-12 Completed [facility] 00:00:00 of Medicine Influenza Quad-PF 2020-05-12 Completed [facility] 00:00:00 of Medicine Influenza Quad-PF 2020-05-12 Completed [facility] 00:00:00 of Medicine Influenza Quad-PF 2020-05-12 Completed [facility] 00:00:00 of Medicine Influenza Quad-PF 2020-05-12 Completed [facility] 00:00:00 of Medicine Influenza Quad-PF 2020-05-12 Completed [facility] 00:00:00 of Medicine Influenza Quad-PF 2020-05-12 Completed [facility] 00:00:00 of Medicine Influenza Quad-PF 2020-05-12 Completed [facility] 00:00:00 of Medicine Influenza Quad-PF 2020-05-12 Completed [facility] 00:00:00 of Medicine Influenza Quad-PF 2020-05-12 Completed [facility] 00:00:00 of Medicine Influenza Quad-PF 2020-05-12 Completed [facility] 00:00:00 of Medicine Influenza Quad-PF 2020-05-12 Completed [facility] 00:00:00 of Medicine Influenza Quad-PF 2020-05-12 Completed [facility] 00:00:00 of Medicine Influenza Quad-PF 2020-05-12 Completed [facility] 00:00:00 of Medicine Influenza Quad-PF 2020-05-12 Completed [facility] 00:00:00 of Medicine Influenza Quad-PF 2020-05-12 Completed [facility] 00:00:00 of Medicine Influenza Quad-PF 2020-05-12 Completed [facility] 00:00:00 of Medicine Influenza Quad-PF 2020-05-12 Completed [facility] 00:00:00 of Medicine Influenza Quad-PF 2020-05-12 Completed [facility] 00:00:00 of Medicine Influenza Quad-PF 2020-05-12 Completed [facility] 00:00:00 of Medicine Influenza Quad-PF 2020-05-12 Completed [facility] 00:00:00 of Medicine Influenza Quad-PF 2020-05-12 Completed [facility] 00:00:00 of Medicine FLUZONE QUAD PF 2016-04-17 Completed [facility]00 [facility] FLUZONE QUAD PF 2016-04-17 Completed [facility]:00 [facility] Influenza Quad-PF 2016-04-17 Completed [facility] 00:00:00 of Medicine Influenza Quad-PF 2016-04-17 Completed [facility] 00:00:00 of Medicine Influenza Quad-PF 2016-04-17 Completed [facility] 00:00:00 of Medicine Influenza Quad-PF 2016-04-17 Completed [facility] 00:00:00 of Medicine Influenza Quad-PF 2016-04-17 Completed [facility] 00:00:00 of Medicine Influenza Quad-PF 2016-04-17 Completed [facility] 00:00:00 of Medicine Influenza Quad-PF 2016-04-17 Completed [facility] 00:00:00 of Medicine Influenza Quad-PF 2016-04-17 Completed [facility] 00:00:00 of Medicine Influenza Quad-PF 2016-04-17 Completed [facility] 00:00:00 of Medicine Influenza Quad-PF 2016-04-17 Completed [facility] 00:00:00 of Medicine Influenza Quad-PF 2016-04-17 Completed [facility] 00:00:00 of Medicine Influenza Quad-PF 2016-04-17 Completed [facility] 00:00:00 of Medicine Influenza Quad-PF 2016-04-17 Completed [facility] 00:00:00 of Medicine Influenza Quad-PF 2016-04-17 Completed [facility] 00:00:00 of Medicine Influenza Quad-PF 2016-04-17 Completed [facility] 00:00:00 of Medicine Influenza Quad-PF 2016-04-17 Completed [facility] 00:00:00 of Medicine Influenza Quad-PF 2016-04-17 Completed [facility] 00:00:00 of Medicine Influenza Quad-PF 2016-04-17 Completed [facility] 00:00:00 of Medicine Influenza Quad-PF 2016-04-17 Completed [facility] 00:00:00 of Medicine Influenza Quad-PF 2016-04-17 Completed [facility] 00:00:00 of Medicine Influenza Quad-PF 2016-04-17 Completed [facility] 00:00:00 of Medicine FLUZONE QUAD PF 2016-04-17 Completed [facility] 00:[facility]:00 [facility] Tdap 2015-10-02 Completed [facility] 00:00:00 of Medicine Tdap 2015-10-02 Completed [facility] 00:00:00 of Medicine Tdap 2015-10-02 Completed [facility] 00:00:00 of Medicine Tdap 2015-10-02 Completed [facility] 00:00:00 of Medicine Tdap 2015-10-02 Completed [facility] 00:00:00 of Medicine Tdap 2015-10-02 Completed [facility] 00:00:00 of Medicine Tdap 2015-10-02 Completed [facility] 00:00:00 of Medicine Tdap 2015-10-02 Completed [facility] 00:00:00 of Medicine Tdap 2015-10-02 Completed [facility] 00:00:00 of Medicine Tdap 2015-10-02 Completed [...] [facility] 00:00:00 of Medicine Tdap 2015-10-02 Completed [facility] 00:00:00 of Medicine Tdap 2015-10-02 Completed [facility] 00:00:00 of Medicine Tdap 2015-10-02 Completed [facility] 00:00:00 of Medicine Tdap 2015-10-02 Completed [facility] 00:00:00 of Medicine Tdap 2015-10-02 Completed [facility] 00:00:00 of Medicine Tdap 2015-10-02 Completed [facility] 00:00:00 of Medicine Pneumococcal 2015-04-13 Completed [facility] Conjugate 00:00:00 of Medicine Influenza (whole) 2015-04-13 Completed [facility] 00:00:00 of Medicine Pneumococcal 2015-04-13 Completed [facility] Conjugate 00:00:00 of Medicine Influenza (whole) 2015-04-13 Completed [facility] 00:00:00 of Medicine Pneumococcal 2015-04-13 Completed [facility] Conjugate 00:00:00 of Medicine Influenza (whole) 2015-04-13 Completed [facility] 00:00:00 of Medicine Pneumococcal 2015-04-13 Completed [facility] Conjugate 00:00:00 of Medicine Influenza (whole) 2015-04-13 Completed [facility] 00:00:00 of Medicine Pneumococcal 2015-04-13 Completed [facility] 00:00:00 of Medicine Influenza (whole) 2015-04-13 [facility] Pneumococcal 2015-04-13 Completed [facility] Conjugate 00:00:00 of Medicine Influenza (whole) 2015-04-13 Completed [facility] 00:00:00 of Medicine Pneumococcal 2015-04-13 Completed [facility]jug[facility] 00:00:00 of Medicine Influenza (whole) 2015-04-13 Completed [facility] 00:00:00 of Medicine Pneumococcal 2015-04-13 Completed [facility]jug[facility] 00:00:00 of Medicine Influenza (whole) 2015-04-13 [facility] Pneumococcal 2015-04-13 Completed [facility]jug[facility] 00:00:00 of Medicine Influenza (whole) 2015-04-13 [facility] 00:[facility]:00 of Medicine Pneumococcal 2015-04-13 Completed [facility] Conjugate 00:00:00 of Medicine Influenza (whole) 2015-04-13 [facility] Pneumococcal 2015-04-13 Completed [facility] 00:00:00 of Medicine Influenza (whole) 2015-04-13 Completed [facility] 00:00:00 of Medicine Pneumococcal 2015-04-13 Completed [facility]jugate 00:00:00 of Medicine Influenza (whole) 2015-04-13 Completed [facility] 00:00:00 of Medicine Pneumococcal 2015-04-13 Completed [facility] 00:00:00 of Medicine Influenza (whole) 2015-04-13 Completed [facility] [employer] 00:00:00 of Medicine Pneumococcal 2015-04-13 Completed [facility]jug[facility] 00:00:00 of Medicine Influenza (whole) 2015-04-13 Completed [facility] 00:00:00 of Medicine Pneumococcal 2015-04-13 Completed [facility] 00:00:00 of Medicine Influenza (whole) 2015-04-13 Completed [facility] 00:00:00 of Medicine Pneumococcal 2015-04-13 Completed [facility]jug[facility] 00:00:00 of Medicine Influenza (whole) 2015-04-13 Completed [facility] 00:00:00 of Medicine Pneumococcal 2015-04-13 Completed [facility] Conjugate 00:00:00 of Medicine Influenza (whole) 2015-04-13 Completed [facility] 00:00:00 of Medicine Pneumococcal 2015-04-13 Completed [facility] Conjugate 00:00:00 of Medicine Influenza (whole) 2015-04-13 Completed [facility] 00:00:00 of Medicine Pneumococcal 2015-04-13 Completed [facility] Conjugate 00:00:00 of Medicine Influenza (whole) 2015-04-13 Completed [facility] 00:00:00 of Medicine Pneumococcal 2015-04-13 Completed [facility] Conjugate 00:00:00 of Medicine Influenza (whole) 2015-04-13 Completed [facility] 00:00:00 of Medicine Pneumococcal 2015-04-13 Completed [facility] 00:00:00 of Medicine Influenza (whole) 2015-04-13 Completed [facility] 00:00:00 of Medicine Pneumococcal 2015-04-13 Completed [facility] 00:00:00 of Medicine Influenza (whole) 2015-04-13 Completed [facility] [employer] 00:00:00 of Medicine Pneumococcal 2015-04-13 Completed [facility] Conjugate 00:00:00 of Medicine Influenza (whole) 2015-04-13 Completed [facility] 00:00:00 of Medicine Pneumococcal 2015-04-13 Completed [facility] Conjugate 00:00:00 of Medicine Influenza (whole) 2015-04-13 Completed [facility] 00:00:00 of Medicine Tdap 2015-01-14 Completed [facility] 00:00:00 of Medicine Tdap 2015-01-14 Completed [facility] 00:00:00 of Medicine Tdap 2015-01-14 Completed [facility] 00:00:00 of Medicine Tdap 2015-01-14 Completed [facility] 00:00:00 of Medicine Tdap 2015-01-14 Completed [facility] 00:00:00 of Medicine Tdap 2015-01-14 Completed [facility] 00:00:00 of Medicine Tdap 2015-01-14 Completed [facility] 00:00:00 of Medicine Tdap 2015-01-14 Completed [facility] 00:00:00 of Medicine Tdap 2015-01-14 Completed [facility] 00:00:00 of Medicine Tdap 2015-01-14 Completed [facility] 00:00:00 of Medicine Tdap 2015-01-14 Completed [facility] 00:00:00 of Medicine Tdap 2015-01-14 Completed [facility] 00:00:00 of Medicine Tdap 2015-01-14 Completed [facility] 00:00:00 of Medicine Tdap 2015-01-14 Completed [facility] 00:00:00 of Medicine Tdap 2015-01-14 Completed [facility] 00:00:00 of Medicine Tdap 2015-01-14 Completed [facility] 00:00:00 of Medicine Tdap 2015-01-14 Completed [facility] 00:00:00 of Medicine Tdap 2015-01-14 Completed [facility] 00:00:00 of Medicine Tdap 2015-01-14 Completed [facility] 00:00:00 of Medicine Tdap 2015-01-14 Completed [facility] 00:00:00 of Medicine Tdap 2015-01-14 Completed [facility] 00:00:00 of Medicine Tdap 2015-01-14 Completed [facility] 00:00:00 of Medicine Tdap 2015-01-14 Completed [facility] 00:00:00 of Medicine Tdap 2015-01-14 Completed [facility] 00:00:00 of Medicine Hep A/Hep B 2012-07-17 Completed [facility] 00:00:00 of Medicine Hep A/Hep B 2012-07-17 Completed [facility] 00:00:00 of Medicine Hep A/Hep B 2012-07-17 Completed [facility] 00:00:00 of Medicine Hep A/Hep B 2012-07-17 Completed [facility] 00:00:00 of Medicine Hep A/Hep B 2012-07-17 Completed [facility] 00:00:00 of Medicine Hep A/Hep B 2012-07-17 Completed [facility] 00:00:00 of Medicine Hep A/Hep B 2012-07-17 Completed [facility] 00:00:00 of Medicine Hep A/Hep B 2012-07-17 Completed [facility] 00:00:00 of Medicine Hep A/Hep B 2012-07-17 Completed [facility] 00:00:00 of Medicine Hep A/Hep B 2012-07-17 Completed [facility] 00:00:00 of Medicine Hep A/Hep B 2012-07-17 Completed [facility] 00:00:00 of Medicine Hep A/Hep B 2012-07-17 Completed [facility] 00:00:00 of Medicine Hep A/Hep B 2012-07-17 Completed [facility] 00:00:00 of Medicine Hep A/Hep B 2012-07-17 Completed [facility] 00:00:00 of Medicine Hep A/Hep B 2012-07-17 Completed [facility] 00:00:00 of Medicine Hep A/Hep B 2012-07-17 Completed [facility] 00:00:00 of Medicine Hep A/Hep B 2012-07-17 Completed [facility] 00:00:00 of Medicine Hep A/Hep B 2012-07-17 Completed [facility] 00:00:00 of Medicine Hep A/Hep B 2012-07-17 Completed [facility] 00:00:00 of Medicine Hep A/Hep B 2012-07-17 Completed [facility] 00:00:00 of Medicine Hep A/Hep B 2012-07-17 Completed [facility] 00:00:00 of Medicine Hep A/Hep B 2012-07-17 Completed [facility] 00:00:00 of Medicine Hep A/Hep B 2012-07-17 Completed [facility] 00:00:00 of Medicine Hep A/Hep B 2012-07-17 Completed [facility] 00:00:00 of Medicine Hep A/Hep B 2012-02-15 Completed [facility] 00:00:00 of Medicine Hep A/Hep B 2012-02-15 Completed [facility] 00:00:00 of Medicine Hep A/Hep B 2012-02-15 Completed [facility] 00:00:00 of Medicine Hep A/Hep B 2012-02-15 Completed [facility] 00:00:00 of Medicine Hep A/Hep B 2012-02-15 Completed [facility] 00:00:00 of Medicine Hep A/Hep B 2012-02-15 Completed [facility] 00:00:00 of Medicine Hep A/Hep B 2012-02-15 Completed [facility] 00:00:00 of Medicine Hep A/Hep B 2012-02-15 Completed [facility] 00:00:00 of Medicine Hep A/Hep B 2012-02-15 Completed [facility] 00:00:00 of Medicine Hep A/Hep B 2012-02-15 Completed [facility] 00:00:00 of Medicine Hep A/Hep B 2012-02-15 Completed [facility] 00:00:00 of Medicine Hep A/Hep B 2012-02-15 Completed [facility] 00:00:00 of Medicine Hep A/Hep B 2012-02-15 Completed [facility] 00:00:00 of Medicine Hep A/Hep B 2012-02-15 Completed [facility] 00:00:00 of Medicine Hep A/Hep B 2012-02-15 Completed [facility] 00:00:00 of Medicine Hep A/Hep B 2012-02-15 Completed [facility] 00:00:00 of Medicine Hep A/Hep B 2012-02-15 Completed [facility] 00:00:00 of Medicine Hep A/Hep B 2012-02-15 Completed [facility] 00:00:00 of Medicine Hep A/Hep B 2012-02-15 Completed [facility] 00:00:00 of Medicine Hep A/Hep B 2012-02-15 Completed [facility] 00:00:00 of Medicine Hep A/Hep B 2012-02-15 Completed [facility] 00:00:00 of Medicine Hep A/Hep B 2012-02-15 Completed [facility] 00:00:00 of Medicine Hep A/Hep B 2012-02-15 Completed [facility] 00:00:00 of Medicine Hep A/Hep B 2012-02-15 Completed [facility] 00:00:00 of Medicine Hep A/Hep B 2011-12-31 [facility] Tdap 2011-12-31 Completed [facility] 00:00:00 of Medicine Hep A/Hep B 2011-12-31 Completed [facility] 00:00:00 of Medicine Tdap 2011-12-31 Completed [facility] 00:00:00 of Medicine Hep A/Hep B 2011-12-31 [facility] Tdap 2011-12-31 Completed [facility] 00:00:00 of Medicine Hep A/Hep B 2011-12-31 Completed [facility] 00:00:00 of Medicine Tdap 2011-12-31 Completed [facility] 00:00:00 of Medicine Hep A/Hep B 2011-12-31 Completed [facility] 00:00:00 of Medicine Tdap 2011-12-31 Completed [facility] 00:00:00 of Medicine Hep A/Hep B 2011-12-31 Completed [facility] 00:00:00 of Medicine Tdap 2011-12-31 Completed [facility] 00:00:00 of Medicine Hep A/Hep B 2011-12-31 Completed [facility] 00:00:00 of Medicine Tdap 2011-12-31 Completed [facility] 00:00:00 of Medicine Hep A/Hep B 2011-12-31 Completed [facility] 00:00:00 of Medicine Tdap 2011-12-31 Completed [facility] 00:00:00 of Medicine Hep A/Hep B 2011-12-31 Completed [facility] 00:00:00 of Medicine Tdap 2011-12-31 Completed [facility] 00:00:00 of Medicine Hep A/Hep B 2011-12-31 Completed [facility] 00:00:00 of Medicine Tdap 2011-12-31 Completed [facility] 00:00:00 of Medicine Hep A/Hep B 2011-12-31 Completed [facility] 00:00:00 of Medicine Tdap 2011-12-31 Completed [facility] 00:00:00 of Medicine Hep A/Hep B 2011-12-31 Completed [facility] 00:00:00 of Medicine Tdap 2011-12-31 Completed [facility] 00:00:00 of Medicine Hep A/Hep B 2011-12-31 Completed [facility] 00:00:00 of Medicine Tdap 2011-12-31 Completed [facility] 00:00:00 of Medicine Hep A/Hep B 2011-12-31 Completed [facility] 00:00:00 of Medicine Tdap 2011-12-31 Completed [facility] 00:00:00 of Medicine Hep A/Hep B 2011-12-31 Completed [facility] 00:00:00 of Medicine Tdap 2011-12-31 Completed [facility] 00:00:00 of Medicine Hep A/Hep B 2011-12-31 Completed [facility] 00:00:00 of Medicine Tdap 2011-12-31 Completed [facility] 00:00:00 of Medicine Hep A/Hep B 2011-12-31 Completed [facility] 00:00:00 of Medicine Tdap 2011-12-31 Completed [facility] 00:00:00 of Medicine Hep A/Hep B 2011-12-31 Completed [facility] 00:00:00 of Medicine Tdap 2011-12-31 Completed [facility] 00:00:00 of Medicine Hep A/Hep B 2011-12-31 Completed [facility] 00:00:00 of Medicine Tdap 2011-12-31 Completed [facility] 00:00:00 of Medicine Hep A/Hep B 2011-12-31 Completed [facility] 00:00:00 of Medicine Hep A/Hep B 2011-12-31 Completed [facility] 00:00:00 of Medicine Tdap 2011-12-31 Completed [facility] 00:00:00 of Medicine Tdap 2011-12-31 Completed [facility] 00:00:00 of Medicine Hep A/Hep B 2011-12-31 Completed [facility] 00:00:00 of Medicine Tdap 2011-12-31 Completed [facility] 00:00:00 of Medicine Hep A/Hep B 2011-12-31 Completed [facility] 00:00:00 of Medicine Tdap 2011-12-31 Completed [facility] 00:00:00 of Medicine Hep A/Hep B 2011-12-31 Completed [facility] 00:00:00 of Medicine Tdap 2011-12-31 Completed [facility] 00:00:00 of Medicine PPD Test 2011-12-28 Completed [facility] 00:00:00 of Medicine PPD Test 2011-12-28 Completed [facility] 00:00:00 of Medicine PPD Test 2011-12-28 Completed [facility] 00:00:00 of Medicine PPD Test 2011-12-28 Completed [facility] 00:00:00 of Medicine PPD Test 2011-12-28 Completed [facility] 00:00:00 of Medicine PPD Test 2011-12-28 Completed [facility] 00:00:00 of Medicine PPD Test 2011-12-28 Completed [facility] 00:00:00 of Medicine PPD Test 2011-12-28 Completed [facility] 00:00:00 of Medicine PPD Test 2011-12-28 Completed [facility] 00:00:00 of Medicine PPD Test 2011-12-28 Completed [facility] 00:00:00 of Medicine PPD Test 2011-12-28 Completed [facility] 00:00:00 of Medicine PPD Test 2011-12-28 Completed [facility] 00:00:00 of Medicine PPD Test 2011-12-28 Completed [facility] 00:00:00 of Medicine PPD Test 2011-12-28 Completed [facility] 00:00:00 of Medicine PPD Test 2011-12-28 Completed [facility] 00:00:00 of Medicine PPD Test 2011-12-28 Completed [facility] 00:00:00 of Medicine PPD Test 2011-12-28 Completed [facility] 00:00:00 of Medicine PPD Test 2011-12-28 Completed [facility] 00:00:00 of Medicine PPD Test 2011-12-28 Completed [facility] 00:00:00 of Medicine PPD Test 2011-12-28 Completed [facility] 00:00:00 of Medicine PPD Test 2011-12-28 Completed [facility] 00:00:00 of Medicine PPD Test 2011-12-28 Completed [facility] 00:00:00 of Medicine PPD Test 2011-12-28 Completed [facility] 00:00:00 of Medicine PPD Test 2011-12-28 Completed [facility] 00:00:00 of Medicine TD, NOS 2011-10-16 Completed [facility] TD, NOS 2011-10-16 Completed [facility] 00:[facility]:00 [facility] TD, NOS 2011-10-16 Completed [facility] 00[facility] [...] Completed [facility] 00:[facility]:00 [facility] TD, NOS 2011-10-16 Completed [facility] 00[facility]:00 [facility] Td 2011-10-16 Completed [facility] 00[facility]00:00 [facility] TD, NOS 2011-10-16 Completed [facility] 00:00:00 [facility] TD, NOS 2011-10-16 Completed [facility] 00[facility]00:00 [facility] TD, NOS 2011-10-16 Completed [facility] 00:00:00 [facility] TD, NOS 2011-10-16 Completed [facility] 00:00:00 [facility] TD, NOS 2011-10-16 Completed [facility] 00:00:00 [facility] TD, NOS 2011-10-16 Completed [facility] 00:00:00 [facility] TD, NOS 2011-10-16 Completed [facility] 00:00:00 [facility] TD, NOS 2011-10-16 Completed [facility] 00:00:00 [facility] TD, NOS 2011-10-16 Completed [facility] 00:00:00 [facility] TD, NOS 2011-10-16 Completed [facility] 00:00:00 [facility] TD, NOS 2011-10-16 Completed [facility] 00:00:00 [facility] TD, NOS 2011-10-16 Completed [facility] 00:00:00 [facility] TD, NOS 2011-10-16 Completed [facility] 00:00:00 [facility] Td 2011-10-16 Completed [employer] 00:00:00 of Medicine Td 2011-10-16 Completed [employer] 00:00:00 of Medicine Td 2011-10-16 Completed [employer] 00:00:00 of Medicine Td 2011-10-16 Completed [employer] 00:00:00 of Medicine Td 2011-10-16 Completed [employer] 00:00:00 of Medicine Td 2011-10-16 Completed [employer] 00:00:00 of Medicine Td 2011-10-16 Completed [employer] 00:00:00 of Medicine Td 2011-10-16 Completed [employer] 00:00:00 of Medicine Td 2011-10-16 Completed [employer] 00:00:00 of Medicine Td 2011-10-16 Completed [employer] 00:00:00 of Medicine Td 2011-10-16 Completed [employer] 00:00:00 of Medicine Td 2011-10-16 Completed [employer] 00:00:00 of Medicine Td 2011-10-16 Completed [employer] 00:00:00 of Medicine Td 2011-10-16 Completed [employer] 00:00:00 of Medicine Td 2011-10-16 Completed [employer] 00:00:00 of Medicine Td 2011-10-16 Completed [employer] 00:00:00 of Medicine Td 2011-10-16 Completed [employer] 00:00:00 of Medicine Td 2011-10-16 Completed [employer] 00:00:00 of Medicine Td 2011-10-16 Completed [facility] 00:00:00 of Medicine Td 2011-10-16 Completed [facility] 00:00:00 of Medicine Td 2011-10-16 Completed [facility] 00:00:00 of Medicine Tdap Unknown Completed [facility] V[facility] Sign[facility] Vital Name Observation Time Observation Value Comments Source HEIGHT 2022-03-08 175.3 cm 13:09:00 WEIGHT 2022-03-08 121.564 kg 13:09:00 HEIGHT 2021-12-13 175.3 cm 14:57:00 WEIGHT 2021-12-13 127.007 kg 14:57:00 HEIGHT 2020-02-10 175.3 cm 00:00:00 WEIGHT 2020-02-10 182.89 kg 00:00:00 Systolic blood 2022-07-19 122 mm[Hg] [facility] pressure 17:53:00 [facility] Diastolic blood 2022-07-19 73 mm[Hg] [place] o f pressure 17:53:00 [facility] Heart rate 2022-07-19 69 /min [facility] 17:53:00 [facility] Body temperature 2022-07-19 36.83 Debra [facility] 17:53:00 [facility] Body height 2022-07-19 175.3 cm University 17:53:00 [facility] Body weight 2022-07-19 103.874 kg University 17:53:00 [facility] BMI 2022-07-19 33.82 kg/m2 University 17:53:00 [facility] HEIGHT 2022-07-07 175.3 cm 22:19:51 WEIGHT 2022-07-07 106.9 kg 22:19:51 HEIGHT 2022-07-07 175.3 cm 22:19:51 WEIGHT 2022-07-07 106.9 kg 22:19:51 HEIGHT 2022-07-07 175.3 cm 22:19:51 WEIGHT 2022-07-07 106.9 kg 22:19:51 HEIGHT 2022-07-06 175.3 cm 11:09:00 WEIGHT 2022-07-06 108.5 kg 11:09:00 HEIGHT 2022-07-06 175.3 cm 11:09:00 WEIGHT 2022-07-06 108.5 kg 11:09:00 HEIGHT 2022-07-06 175.3 cm 11:09:00 WEIGHT 2022-07-06 108.5 kg 11:09:00 Body height 2022-06-29 175.3 cm University 15:41:00 [facility] Body weight 2022-06-29 108.274 kg [facility] 15:41:00 [facility] BMI 2022-06-29 35.25 kg/m2 University 15:41:00 [facility] HEIGHT 2022-06-20 175.3 cm 06:24:00 WEIGHT 2022-06-20 [...] 17:28:00 Body temperature 2022-06-15 36.78 Debra [facility] 22:38:00 [facility] Body height 2022-06-15 175.3 cm [facility] 22:38:00 [facility] Body weight 2022-06-15 114.76 kg [facility] 22:38:00 [facility] BMI 2022-06-15 37.36 kg/m2 [facility] 22:38:00 [facility] Systolic blood 2022-06-11 113 mm[Hg] [facility] pressure 19:02:00 [facility] Diastolic blood 2022-06-11 66 mm[Hg] [facility] f pressure 19:02:00 [facility] Heart rate 2022-06-11 84 /min [facility] 19:02:00 [facility] Body height 2022-06-11 175.3 cm University 19:02:00 [facility] Body weight 2022-06-11 117.482 kg [facility] 19:02:00 [facility] BMI 2022-06-11 38.25 kg/m2 [facility] 19:02:00 [facility] Oxygen saturation 2022-06-11 98 /min [facility] in Arterial blood 19:02:00 [facility] by Pulse oximetry [facility] 2022-05-07 175.3 cm 11:45:00 WEIGHT 2022-05-07 114.397 [...] kg 12:17:00 Systolic blood 2022-04-30 122 mm[Hg] [employer] [facility] pressure 15:17:00 of Medicine Diastolic blood 2022-04-30 76 mm[Hg] [employer] [facility] pressure 15:17:00 of Medicine Heart rate 2022-04-30 76 /min [facility] 15:17:00 of Medicine Body height 2022-04-30 175.3 cm [facility] 15:17:00 of Medicine Body weight 2022-04-30 118.389 kg [facility] 15:17:00 of Medicine BMI 2022-04-30 38.54 kg/m2 [facility] 15:17:00 of Medicine Systolic blood 2022-04-24 122 mm[Hg] [employer] pressure 18:12:00 of Medicine Diastolic blood 2022-04-24 83 mm[Hg] [employer] [facility] pressure 18:12:00 of Medicine Heart rate 2022-04-24 73 /min [facility] 18:12:00 of Medicine Body height 2022-04-24 175.3 cm [facility] 18:12:00 of Medicine Body weight 2022-04-24 118.389 kg [facility] 18:12:00 of Medicine BMI 2022-04-24 38.54 kg/m2 [facility] 18:12:00 of Medicine Systolic blood 2022-04-05 131 mm[Hg] [employer] pressure 19:28:00 of Medicine Diastolic blood 2022-04-05 81 mm[Hg] [employer] [facility] pressure 19:28:00 of Medicine Heart rate 2022-04-05 65 /min [facility] 19:28:00 of Medicine Body temperature 2022-04-05 36.67 Debra [employer] [facility] 19:28:00 of Medicine Respiratory rate 2022-04-05 16 /min [employer] [facility] 19:28:00 of Medicine Body height 2022-04-05 175.3 cm [facility] 19:28:00 of Medicine Body weight 2022-04-05 118.389 kg [facility] 19:28:00 of Medicine BMI 2022-04-05 38.54 kg/m2 [facility] 19:28:00 of Medicine Oxygen saturation 2022-04-05 98 /min [employer] [facility] in Arterial blood 19:28:00 of Medicin e by Pulse oximetry Systolic blood 2022-04-03 122 mm[Hg] [facility] pressure 18:58:00 [facility] Diastolic blood 2022-04-03 79 mm[Hg] [place] o f pressure 18:58:00 [facility] Heart rate 2022-04-03 79 /min University 18:58:00 [facility] Body height 2022-04-03 175.3 cm [facility] 18:58:00 [facility] Body weight 2022-04-03 120.6 kg [facility] 18:58:00 [facility] BMI 2022-04-03 39.26 kg/m2 [facility] 18:58:00 [facility] Oxygen saturation 2022-04-03 96 /min [facility] in Arterial blood 18:58:00 [facility] by Pulse oximetry Branch Body weight 2022-03-30 118.842 kg [facility] 15:54:00 of Medicine BMI 2022-03-30 38.69 kg/m2 [facility] 15:54:00 of Medicine Systolic blood 2022-03-12 134 mm[Hg] [employer] [facility] pressure 18:45:00 of Medicine Diastolic blood 2022-03-12 68 mm[Hg] [employer] [facility] pressure 18:45:00 of Medicine Body height 2022-03-12 175.3 cm [facility] 18:45:00 of Medicine Body weight 2022-03-12 121.564 kg [facility] 18:45:00 of Medicine BMI 2022-03-12 39.58 kg/m2 [facility] 18:45:00 of Medicine HEIGHT 2022-03-07 175.3 cm 16:23:00 WEIGHT 2022-03-07 121.564 kg 16:23:00 HEIGHT 2022-03-07 175.3 cm 16:23:00 WEIGHT 2022-03-07 121.564 kg 16:23:00 HEIGHT 2022-03-07 175.3 cm 16:23:00 WEIGHT 2022-03-07 121.564 kg 16:23:00 Systolic blood 2022-03-07 145 mm[Hg] [employer] pressure 16:55:00 of Medicine Diastolic blood 2022-03-07 81 mm[Hg] [employer] [facility] pressure 16:55:00 of Medicine Heart rate 2022-03-07 89 /min [facility] 16:55:00 of Medicine Body temperature 2022-03-07 36.83 Debra [facility] ege 16:55:00 of Medicine Body height 2022-03-07 175.3 cm [facility] 16:55:00 of Medicine Body weight 2022-03-07 121.927 kg [facility] 16:55:00 of Medicine BMI 2022-03-07 39.69 kg/m2 [facility] 16:55:00 of Medicine Oxygen saturation 2022-03-07 96 /min [employer] [facility] in Arterial blood 16:55:00 of Medicin e by Pulse oximetry Systolic blood 2022-03-06 126 mm[Hg] [employer] pressure 18:59:00 of Medicine Diastolic blood 2022-03-06 80 mm[Hg] [employer] [facility] pressure 18:59:00 of Medicine Heart rate 2022-03-06 84 /min [facility] 18:59:00 of Medicine Body temperature 2022-03-06 36.67 Debra [employer] [facility] 18:59:00 of Medicine Respiratory rate 2022-03-06 16 /min [employer] [facility] 18:59:00 of Medicine Body height 2022-03-06 175.3 cm [facility] 18:59:00 of Medicine Body weight 2022-03-06 122.925 kg [facility] 18:59:00 of Medicine BMI 2022-03-06 40.02 kg/m2 [facility] 18:59:00 of Medicine Oxygen saturation 2022-03-06 98 /min [employer] in Arterial blood 18:59:00 of Medicin e by Pulse oximetry Systolic blood 2022-02-21 126 mm[Hg] [employer] pressure 16:54:00 of Medicine Diastolic blood 2022-02-21 81 mm[Hg] [employer] 16:54:00 of Medicine Heart rate 2022-02-21 90 /min [facility] 16:54:00 of Medicine Body temperature 2022-02-21 37 Debra [employer] [facility] 16:54:00 of Medicine Respiratory rate 2022-02-21 18 /min [employer] [facility] 16:54:00 of Medicine Body height 2022-02-21 175.3 cm [facility] 16:54:00 of Medicine Body weight 2022-02-21 122.925 kg [facility] 16:54:00 of Medicine BMI 2022-02-21 40.02 kg/m2 [facility] 16:54:00 of Medicine Oxygen saturation 2022-02-21 95 /min [employer] in Arterial blood 16:54:00 of Medicin e by Pulse oximetry Systolic blood 2022-01-24 121 mm[Hg] [employer] pressure 16:11:00 of Medicine Diastolic blood 2022-01-24 74 mm[Hg] [employer] [facility] pressure 16:11:00 of Medicine Heart rate 2022-01-24 88 /min [facility] 16:11:00 of Medicine Body temperature 2022-01-24 36.17 Debra [employer] [facility] 16:11:00 of Medicine Body height 2022-01-24 175.3 cm [facility] 16:11:00 of Medicine Body weight 2022-01-24 125.646 kg [facility] 16:11:00 of Medicine BMI 2022-01-24 40.91 kg/m2 [facility] 16:11:00 of Medicine Body height 2022-01-23 175.3 cm [facility] 14:36:00 of Medicine Body weight 2022-01-23 125.646 kg [facility] 14:36:00 of Medicine BMI 2022-01-23 40.91 kg/m2 [facility] 14:36:00 of Medicine Systolic blood 2022-01-22 110 mm[Hg] [employer] pressure 21:16:00 of Medicine Diastolic blood 2022-01-22 60 mm[Hg] [employer] [facility] pressure 21:16:00 of Medicine Heart rate 2022-01-22 85 /min [facility] 21:16:00 of Medicine Respiratory rate 2022-01-22 22 /min [employer] [facility] 21:16:00 of Medicine Systolic blood 2021-11-23 120 mm[Hg] [employer] pressure 18:06:00 of Medicine Diastolic blood 2021-11-23 81 mm[Hg] [employer] [facility] [employer] pressure 18:06:00 of Medicine Heart rate 2021-11-23 95 /min [facility] 18:06:00 of Medicine Body temperature 2021-11-23 37 Debra [employer] [facility] 18:06:00 of Medicine Respiratory rate 2021-11-23 16 /min [employer] [facility] 18:06:00 of Medicine Body height 2021-11-23 175.3 cm [facility] 18:06:00 of Medicine Body weight 2021-11-23 128.822 kg [facility] 18:06:00 of Medicine BMI 2021-11-23 41.94 kg/m2 [facility] 18:06:00 of Medicine Oxygen saturation 2021-11-23 96 /min [employer] [facility] in Arterial blood 18:06:00 of Medicin e by Pulse oximetry HEIGHT 2021-10-03 175.3 cm 18:19:00 WEIGHT 2021-10-03 126.1 kg 18:19:00 HEIGHT 2021-10-03 175.3 cm 18:19:00 WEIGHT 2021-10-03 126.1 kg 18:19:00 HEIGHT 2021-10-03 175.3 cm 18:19:00 WEIGHT 2021-10-03 126.1 kg 18:19:00 Systolic blood 2021-09-08 137 mm[Hg] [employer] pressure 18:41:00 of Medicine Diastolic blood 2021-09-08 87 mm[Hg] [employer] [facility] pressure 18:41:00 of Medicine Heart rate 2021-09-08 73 /min [facility] 18:41:00 of Medicine Body temperature 2021-09-08 36.28 Debra [employer] [facility] 18:41:00 of Medicine Respiratory rate 2021-09-08 16 /min [employer] [facility] 18:41:00 of Medicine Body height 2021-09-08 175.3 cm [facility] 18:41:00 of Medicine Body weight 2021-09-08 129.003 kg [facility] 18:41:00 of Medicine BMI 2021-09-08 42.00 kg/m2 [facility] 18:41:00 of Medicine Oxygen saturation 2021-09-08 100 /min [employer] [facility] in Arterial blood 18:41:00 of Medicin e by Pulse oximetry Systolic blood 2021-06-27 113 mm[Hg] [employer] pressure 17:35:00 of Medicine Diastolic blood 2021-06-27 77 mm[Hg] [employer] [facility] 17:35:00 of Medicine Heart rate 2021-06-27 89 /min [facility] 17:35:00 of Medicine Body temperature 2021-06-27 37.28 Debra [employer] [facility] 17:35:00 of Medicine Body height 2021-06-27 175.3 cm [facility] 17:35:00 of Medicine Body weight 2021-06-27 121.564 kg [facility] 17:35:00 of Medicine BMI 2021-06-27 39.58 kg/m2 [facility] 17:35:00 of Medicine Systolic blood 2021-05-03 104 mm[Hg] [employer] pressure 17:27:00 of Medicine Diastolic blood 2021-05-03 66 mm[Hg] [employer] [facility] 17:27:00 of Medicine Heart rate 2021-05-03 80 /min [facility] 17:27:00 of Medicine Body temperature 2021-05-03 36.61 Debra [employer] [facility] 17:27:00 of Medicine Respiratory rate 2021-05-03 16 /min [facility] 17:27:00 of Medicine Body height 2021-05-03 175.3 cm [facility] 17:27:00 of Medicine Body weight 2021-05-03 121.791 kg [facility] 17:27:00 of Medicine BMI 2021-05-03 39.65 kg/m2 [facility] 17:27:00 of Medicine Oxygen saturation 2021-05-03 98 /min [employer] [facility] in Arterial blood 17:27:00 of Medicin e by Pulse oximetry Systolic blood 2021-03-03 112 mm[Hg] [employer] pressure 18:53:00 of Medicine Diastolic blood 2021-03-03 77 mm[Hg] [employer] [facility] pressure 18:53:00 of Medicine Heart rate 2021-03-03 91 /min [facility] 18:53:00 of Medicine Body temperature 2021-03-03 36.67 Debra [employer] 18:53:00 of Medicine Body height 2021-03-03 170.2 cm [facility] 18:53:00 of Medicine Body weight 2021-03-03 130.182 kg [facility] 18:53:00 of Medicine BMI 2021-03-03 44.95 kg/m2 [facility] 18:53:00 of Medicine HEIGHT 2021-01-03 175.3 cm 13:54:00 WEIGHT 2021-01-03 126.2 kg 13:54:00 Systolic blood 2020-12-02 105 mm[Hg] [employer] pressure 16:35:00 of Medicine Diastolic blood 2020-12-02 72 mm[Hg] [employer] [facility] pressure 16:35:00 of Medicine Heart rate 2020-12-02 71 /min [facility] 16:35:00 of Medicine Respiratory rate 2020-12-02 16 /min [facility] [employer] 16:35:00 of Medicine Body height 2020-12-02 170.2 cm [facility] 16:35:00 of Medicine Body weight 2020-12-02 130.182 kg [facility] 16:35:00 of Medicine BMI 2020-12-02 44.95 kg/m2 [facility] 16:35:00 of Medicine Oxygen saturation 2020-12-02 97 /min [employer] [facility] in Arterial blood 16:35:00 of Medicin e by Pulse oximetry Systolic blood 2020-06-14 117 mm[Hg] [employer] pressure 20:25:00 of Medicine Diastolic blood 2020-06-14 71 mm[Hg] [employer] [facility] pressure 20:25:00 of Medicine Heart rate 2020-06-14 93 /min [facility] 20:25:00 of Medicine Body temperature 2020-06-14 37 Debra [employer] [facility] 20:25:00 of Medicine Body height 2020-06-14 170.2 cm [facility] 20:25:00 of Medicine Body weight 2020-06-14 149.687 kg [facility] 20:25:00 of Medicine BMI 2020-06-14 51.69 kg/m2 [facility] 20:25:00 of Medicine Systolic blood 2020-06-14 117 mm[Hg] [employer] pressure 20:25:00 of Medicine Diastolic blood 2020-06-14 71 mm[Hg] [employer] [facility] [employer] pressure 20:25:00 of Medicine Heart rate 2020-06-14 93 /min [facility] 20:25:00 of Medicine Body temperature 2020-06-14 37 Debra [employer] [facility] 20:25:00 of Medicine Body height 2020-06-14 170.2 cm [facility] 20:25:00 of Medicine Body weight 2020-06-14 149.687 kg [facility] 20:25:00 of Medicine BMI 2020-06-14 51.69 kg/m2 [facility] 20:25:00 of Medicine Systolic blood 2020-05-12 129 mm[Hg] [employer] pressure 18:10:00 of Medicine Diastolic blood 2020-05-12 83 mm[Hg] [employer] [facility] pressure 18:10:00 of Medicine Heart rate 2020-05-12 92 /min [facility] 18:10:00 of Medicine Body temperature 2020-05-12 36.5 Debra [employer] [facility] 18:06:00 of Medicine Systolic blood 2020-05-12 129 mm[Hg] [employer] pressure 18:10:00 of Medicine Diastolic blood 2020-05-12 83 mm[Hg] [employer] [facility] [employer] pressure 18:10:00 of Medicine Heart rate 2020-05-12 92 /min [facility] 18:10:00 of Medicine Body temperature 2020-05-12 36.5 Debra [employer] [facility] 18:06:00 of Medicine Systolic blood 2020-05-12 135 mm[Hg] [employer] pressure 19:43:00 of Medicine Diastolic blood 2020-05-12 88 mm[Hg] [employer] [facility] pressure 19:43:00 of Medicine Heart rate 2020-05-12 87 /min [facility] 19:43:00 of Medicine Body temperature 2020-05-12 36.5 Debra [employer] [facility] 19:43:00 of Medicine Respiratory rate 2020-05-12 16 /min [employer] [facility] 19:43:00 of Medicine Body height 2020-05-12 170.2 cm [facility] 19:43:00 of Medicine Body weight 2020-05-12 149.687 kg [facility] 19:43:00 of Medicine BMI 2020-05-12 51.69 kg/m2 [facility] 19:43:00 of Medicine Oxygen saturation 2020-05-12 95 /min [employer] [facility] in Arterial blood 19:43:00 of Medicin e by Pulse oximetry Systolic blood 2020-05-12 135 mm[Hg] [employer] pressure 19:43:00 of Medicine Diastolic blood 2020-05-12 88 mm[Hg] [employer] [facility] [employer] pressure 19:43:00 of Medicine Heart rate 2020-05-12 87 /min [facility] 19:43:00 of Medicine Body temperature 2020-05-12 36.5 Debra [employer] [facility] 19:43:00 of Medicine Respiratory rate 2020-05-12 16 /min [employer] [facility] 19:43:00 of Medicine Body height 2020-05-12 170.2 cm [facility] 19:43:00 of Medicine Body weight 2020-05-12 149.687 kg [facility] 19:43:00 of Medicine BMI 2020-05-12 51.69 kg/m2 [facility] 19:43:00 of Medicine Oxygen saturation 2020-05-12 95 /min [employer] [facility] in Arterial blood 19:43:00 of Medicin e by Pulse oximetry HEIGHT 2020-02-10 175.3 cm 00:00:00 WEIGHT 2020-02-10 182.89 kg 00:00:00 Systolic blood 2019-12-22 150 mm[Hg] [facility] pressure 07:15:00 [facility] Diastolic blood 2019-12-22 87 mm[Hg] [facility] pressure 07:15:00 [facility] Heart rate 2019-12-22 86 /min [facility] 07:15:00 [facility] Respiratory rate 2019-12-22 18 /min [facility] 07:15:00 [facility] Oxygen saturation 2019-12-22 97 /min [facility] in Arterial blood 07:15:00 [facility] by Pulse oximetry [place] Body temperature 2019-12-22 38.06 Debra [facility] 02:58:00 [facility] Body weight 2019-12-22 149.687 kg [facility] 02:58:00 [facility] BMI 2019-12-22 62.35 kg/m2 [place] of 02:58:00 [facility] Systolic blood 2019-08-20 148 mm[Hg] [facility] pressure 17:52:00 [facility] Diastolic blood 2019-08-20 90 mm[Hg] [facility] pressure 17:52:00 [facility] Heart rate 2019-08-20 89 /min [facility] 17:52:00 [facility] Body temperature 2019-08-20 36.89 Debra [facility] 17:52:00 [facility] Respiratory rate 2019-08-20 20 /min [facility] 17:52:00 [facility] Body weight 2019-08-20 149.687 kg University 17:52:00 [facility] BMI 2019-08-20 62.35 kg/m2 [facility] 17:52:00 [facility] Oxygen saturation 2019-08-20 98 /min [facility] in Arterial blood 17:52:00 [facility] by Pulse oximetry [place] Heart rate 2022-07-15 84 /min [facility] 12:18:59 [facility] Respiratory rate 2022-07-15 19 /[facility] 12:18:59 [facility] Oxygen saturation 2022-07-15 97 /min [facility] in Arterial blood 12:18:59 [facility] nter by Pulse oximetry Body temperature 2022-07-[address] [facility] 12:18:38 [facility] Systolic blood 2022-07-15 128 mm[Hg] [facility] pressure 12:18:00 [facility] Diastolic blood 2022-07-15 70 mm[Hg] [facility] pressure 12:18:00 [facility] Body height 2022-07-[address] [facility] 22:19:51 [facility] Body weight 2022-07-[address] [facility] 22:19:51 [facility] BMI 2022-07-07 34.80 kg/m2 [facility] 22:19:51 [facility] Systolic blood 2022-07-06 123 mm[Hg] [facility] pressure 14:00:00 [facility] Diastolic blood 2022-07-06 70 mm[Hg] [facility] pressure 14:00:00 [facility] Heart rate 2022-07-06 84 /min [facility] 14:00:00 [facility] Respiratory rate 2022-07-06 23 /min [facility] 14:00:00 [facility] Oxygen saturation 2022-07-06 96 /min [facility] Arterial blood 12:15:00 [facility] by Pulse oximetry Body temperature 2022-07-[address] [facility] 11:09:00 [facility] Body height 2022-07-[address] [facility] 11:09:00 [facility] Body weight 2022-07-[address] [facility] 11:09:00 [facility] BMI 2022-07-06 35.32 kg/m2 [facility] 11:09:00 [facility] Systolic blood 2022-06-21 112 mm[Hg] [facility] pressure 11:15:00 [facility] Diastolic blood 2022-06-21 51 mm[Hg] [facility] pressure 11:15:00 [facility] Heart rate 2022-06-21 68 /min [facility] 11[facility]15:00 [facility] Body temperature 2022-06-[address] [facility] 11:15:00 [facility] Respiratory rate 2022-06-21 20 /min [facility] 11:15:00 [facility] Oxygen saturation 2022-06-21 96 /min [facility] Arterial blood 11:15:00 [facility] by Pulse oximetry Body height 2022-06-[address] [facility] 06:24:00 [facility] Body weight 2022-06-[address] [facility] 06:24:00 [facility] BMI 2022-06-20 36.58 kg/m2 [facility] 06:24:00 [facility] Systolic blood 2022-03-23 118 mm[Hg] [facility] 07:00[facility]00 [facility] Diastolic blood 2022-03-23 58 mm[Hg] [facility] 07:00:00 [facility] Heart rate 2022-03-23 60 /min [facility] 07:00:00 [facility] Respiratory rate 2022-03-23 16 /min [facility] 07:00:00 [facility] Oxygen saturation 2022-03-23 96 /min [facility] in Arterial blood 07:00:00 Hospital by Pulse oximetry Body temperature 2022-03-23 37.17 Debra [facility] 05:17: Hospital Body height 2022-03-23 175.3 cm Worship 05:17: Hospital Body weight 2022-03-23 118.18 kg Worship 05:17: Hospital BMI 2022-03-23 38.47 kg/m2 [facility] 05:17:00 Hospital BP Systolic 2019-07-13 118 mm[Hg] Location: [place]; [facility] 13:08:00 Position: Sitting BP Diastolic 2019-07-13 73 mm[Hg] Location: [place]; [facility] 13:08:00 Position: Sitting Height 2019-07-13 68 [in_us] [facility] 13:08:00 Weight 2019-07-13 331 [lb_av] [facility] 13:08:00 Body Mass Index 2019-07-13 50.33 kg/m2 [facility] Calculated 13:08:00 Heart Rate 2019-07-13 84 /min [facility] 13:08:00 BP Systolic 2019-04-16 100 mm[Hg] Location: [place] 12:58:00 Position: Sitting BP Diastolic 2019-04-16 66 mm[Hg] Location: [place] 12:58:00 Position: Sitting Height 2019-04-16 68 [in_us] [facility] 12:58:00 Weight 2019-04-16 332 [lb_av] [facility] 12:58:00 Body Mass Index 2019-04-16 50.48 kg/m2 [facility] Cal[facility] 12:58:00 Heart Rate 2019-04-16 91 /min Location: L [facility] 12:58:00 Radial; Quality: Normal BP Systolic 2019-03-26 122 mm[Hg] Location: [place]; [facility] 11:25:00 Position: Sitting BP Diastolic 2019-03-26 73 mm[Hg] Location: [place] 11:25:00 Position: Sitting Height 2019-03-26 68 [in_us] [facility] 11:25:00 Weight 2019-03-26 335 [lb_av] [facility] 11:25:00 Body Mass Index 2019-03-26 50.94 kg/m2 [facility] 11:25:00 Heart Rate 2019-03-26 84 /min [facility] 11:25:00 Respiration Rate 2019-03-26 18 /min [facility] 11:25:00 BP Systolic 2019-03-05 119 mm[Hg] Location: [place]; [facility] 10:35:00 Position: Sitting BP Diastolic 2019-03-05 [...] BP Systolic 2019-01-13 119 mm[Hg] Location: [place]; [facility] 08:26:00 Position: Sitting BP Diastolic 2019-01-13 79 mm[Hg] Location: [place]; [facility] 08:26:00 Position: Sitting Heart Rate 2019-01-13 91 /min [facility] 08:26:00 Respiration Rate 2019-01-13 19 /min [facility] 08:26:00 BP Systolic 2019-01-13 123 mm[Hg] Location: [place]; [facility] 08:22:00 Position: Sitting BP Diastolic 2019-01-13 85 mm[Hg] Location: [place]; [facility] 08:22:00 Position: Sitting Height 2019-01-13 68 [in_us] [facility] 08:22:00 Weight 2019-01-13 325 [lb_av] [facility] 08:22:00 Body Mass Index 2019-01-13 49.42 kg/m2 [facility] 08:22:00 BP Systolic 2018-12-29 111 mm[Hg] Location: [place]; [facility] 13:10:00 Position: Sitting BP Diastolic 2018-12-29 73 mm[Hg] Location: [place]; [facility] 13:10:00 Position: Sitting Weight 2018-12-29 325.4375 [lb_av] [facility] 13:10:00 Height 2018-12-29 68 [in_us] [facility] 13:10:00 Body Mass Index 2018-12-29 49.48 kg/m2 [facility] Calculated 13:10:00 Temperature 2018-12-29 98.3 [degF] Method: Oral [facility] 13:10:00 Heart Rate 2018-12-29 93 /min Location: L [facility] 13:10:00 Brachial Artery; Quality: Normal O2 SAT 2018-12-29 94 % Source: RA [facility] 13:10:00 Respiration Rate 2018-12-29 20 /min Quality: Normal [facility] 13:10:00 Procedures Procedure Date / Time Performing Clinician Source Performed CBC W/AUTO DIFF WITH 2022-07-20 13:21:37 [facility] COMPREHENSIVE METABOLIC 2022-07-20 13:21:37 [facility] IRON+TIBC+%SAT 2022-07-20 13:21:37 [facility] FERRITIN 2022-07-20 13:21:37 [facility] CTA CHEST FOR PULMONARY 2022-07-14 11:22:00 Rubi Morales [facility] EMBOLUS [facility] URINE CULTURE 2022-07-12 18:32:00 Yecenia Kwon [facility] URINALYSIS W/ REFLEX URINE 2022-07-12 18:32:00 Yecenia Kwon [facility] CULTURE [facility] ECG 12-LEAD 2022-07-12 15:58:45 Marleny Humphreys [facility] XR CHEST 1 VIEW PORTABLE / 2022-07-12 07:42:00 Aakash Price [facility] PROCEDURE, IN NON-OPERATING 2022-07-10 20:35:00 Surgeon RACHELE Lemus [facility] ROOM SETTING Medical Center CT DRAINAGE W CATH 2022-07-10 18:39:00 Marleny Humphreys [facility] PROTHROMBIN TIME/INR 2022-07-09 03:48:00 Doyle Yecenia [facility] SCREEN, URINE 2022-07-09 00:04:[address] [facility] BASIC METABOLIC PANEL 2022-07-08 03:49:00 Kvng [facility] MAGNESIUM 2022-07-08 03:49:00 Kvng [facility] PHOSPHORUS 2022-07-08 03:49:00 Kvng [facility] CBC W/PLT COUNT & AUTO 2022-07-08 03:49:00 Kvng [facility] C-REACTIVE PROTEIN 2022-07-08 03:49:00 [facility] 2022-07-08 03:49:00 Alexis Baker [facility] CBC W/PLT COUNT & AUTO 2022-07-08 03:49:00 Kvng [facility] CT ABDOMEN/PELVIS WITH IV 2022-07-06 12:20:00 Allyson Jolly CH, I [facility] URINE CULTURE 2022-07-06 12:14[facility] W/ REFLEX URINE 2022-07-06 12:14:00 Allyson Jolly [facility] CULTURE [facility] SARS-COV2/RT-PCR ([facility] & 2022-07-06 11:48:00 Shanae [facility] REF LABS) [facility] COMPREHENSIVE METABOLIC 2022-07-06 11:15:00 Shanae [facility] CBC W/PLT COUNT & AUTO 2022-07-06 11:15:00 Allyson Jolly [facility] LIPASE 2022-07-06 11:15:[facility] LACTIC ACID, VENOUS 2022-07-06 11:15:00 [facility] PT/APTT 2022-07-06 11:15:00 Allyson Jolly [facility] TYPE AND SCREEN, AUTOMATED 2022-07-06 11:15:00 Allyson Jolly [facility] CBC W/PLT COUNT & AUTO 2022-07-06 11:15:00 Allyson Jolly [facility] DIFFERENTIAL [facility] LYMPHOCYTE PHENOTYPING 2022-07-05 11:06:49 [facility] 7 Medicine B-CELL MEMORY AND NAIVE 2022-07-05 11:06:49 [facility] Medicine MR CERVICAL SPINE WO 2022-07-04 21:57:00 Kerry Horvath [facility] [place] IV INFUSION, HYDRATION, 2022-07-03 10:24:31 [facility] ADD HOUR Medicine [place] IV INFUSION, HYDRATION, 2022-07-03 10:24:31 B [facility] 31-60 MIN Medicine XR CERVICAL SPINE 2 VW 2022-06-29 20:11:45 Kerry Horvath [facility] CONSENT/REFUSAL FOR 2022-06-29 19:48:14 Doctor Unassigned, [facility] DIAGNOSIS AND TREATMENT [facility] ASSIGNMENT OF BENEFITS 2022-06-29 19:48:00 Doctor Unassigned, [facility] AMB REF TO ALLERGY AND 2022-06-28 19:57:08 [facility] IMMUNOLOGY IN DEPT OF Medicine MEDICINE [facility] POCT-GLUCOSE METER 2022-06-21 11:16:00 [facility] URINALYSIS W/ REFLEX URINE 2022-06-21 07:37:[address] [facility] POCT-GLUCOSE METER 2022-06-21 05:35:00 [facility] POCT-GLUCOSE METER 2022-06-21 00:05:00 [facility] POCT-GLUCOSE METER 2022-06-20 17:50:00 [facility] TISSUE EXAM 2022-06-20 11:46:00 Froilan [facility] GASTRECTOMY, SLEEVE, 2022-06-20 10:49:00 Froilan [facility] LAPAROSCOPIC [facility] POCT-GLUCOSE METER 2022-06-20 06:35:00 [facility] POCT , URINE 2022-06-20 06:25:[address] [facility] ED ECG INTERPRETATION 2022-06-19 20:47:00 Dmitri Mckeon [facility] X[facility] CHEST 1 VIEW PORTABLE / 2022-06-19 19:42:[address] [facility] ECG 12-LEAD 2022-06-19 19:23:04 Unknown, Hl7 Doctor [facility] ECG 12-LEAD 2022-06-19 19:23:04 Dmitri Mckeon [facility] ECG 12-LEAD 2022-06-19 19:23:04 Unknown, Hl7 Doctor [facility] EKG-SCANNED 2022-06-19 00:00:00 Provider, Sierra [facility] XR SCAPULA RIGHT 2022-06-15 22:25:00 Sydnie Gallegos [facility] XR SHOULDER 2+ VW RIGHT 2022-06-15 22:25:00 Sydnie Gal[facility] HEMOGLOBIN 2022-06-14 13:12:[address] [facility] ELECTROLYTES 2022-06-14 13:12:[address] [facility] BUN AND CREATININE W/RATIO 2022-06-14 13:12:[address] [facility] PATIENT QUESTIONNAIRE 2022-06-14 06:01:00 Doctor Unassigned, Uni [facility] OCT, RETINA - OU - BOTH 2022-06-13 14:47:24 [facility] EYES Medicine OCT, OPTIC NERVE - OU - 2022-06-13 14:47:22 [facility] BOTH EYES Medicine 24-2 AGUSTIN FASTER,OU-BOTH 2022-06-13 14:47:21 [facility] IMMUNOGLOBULINS IGG IGA IGM 2022-06-08 17:00:00 [facility] C4 COMPLEMENT 2022-06-08 17:00:00 [facility] C3 COMPLEMENT 2022-06-07 12:11:26 [facility] DIPTHERIA/TETANUS AB PANEL 2022-06-07 12:09:37 B [facility] STREP PNEUMONIAE AB, 23 2022-06-07 12:09:37 [facility] B-CELL MEMORY AND NAIVE 2022-06-07 12:00:28 [facility] LYMPHOCYTE PHENOTYPING 2022-06-07 12:00:28 [place] [id number] Medicine IGE 2022-06-07 11:46:17 [facility] IGE 2022-06-07 11:46:17 [facility] EMG/NCV 2022-06-06 16:15:00 Oj Lin [facility] IGE 2022-05-31 11:00:16 [facility] B-CELL MEMORY AND NAIVE 2022-05-31 10:59:01 [facility] LYMPHOCYTE PHENOTYPING 2022-05-31 10:59:[address] N-METHYLHISTAMINE, 24 HR, U 2022-05-31 10:57:25 [facility] SPIROMETRY WITH 2022-05-30 13:54:16 [facility] BRONCHODILATOR Medicine EMG PM\\T\\R 2022-05-09 12:47:12 [facility] REPORT OF PROCEDURE - 2022-05-07 15:33:03 Ilia Pascal I [facility] ENDOSCOPY [facility] REPORT OF PROCEDURE - 2022-05-07 15:32:35 Ilia Pascal I [facility] ENDOSCOPY [facility] ESOPHAGOGASTRODUODENOSCOPY, 2022-05-07 14:42:00 Ilia Pascal [facility] WITH PH MONITORING CAPSULE Medic al Center INSERTION COLONOSCOPY 2022-05-07 14:42:00 Ilia Pascal [facility] POCT , URINE 2022-05-07 12:19:00 Willard Bueno CH [facility] [place] NASAL ENDOSCOPY,DX 2022-05-06 22:44:59 [facility] TSH 2022-05-05 11:22:00 [facility] COMPLEMENT COMPONENT C3C 2022-05-05 11:22:00 [facility] C4 COMPLEMENT 2022-05-05 11:22:00 [facility] IMMUNOGLOBULINS IGG IGA IGM 2022-05-05 11:22:00 [facility] TRYPTASE 2022-05-05 11:22:00 [facility] Medicine C4 COMPLEMENT 2022-05-05 11:11:00 [facility] Medicine TRYPTASE 2022-05-05 11:11:00 [facility] IMMUNOGLOBULINS IGG IGA IGM 2022-05-05 11:11:00 [facility] DIPTHERIA/TETANUS AB PANEL 2022-05-05 11:11:00 B [facility] STREP PNEUMONIAE ANTIBODY 2022-05-05 11:11:00 [facility] SPIROMETRY WITH 2022-05-01 16:23:58 [facility] BRONCHODILATOR Medicine C3 COMPLEMENT 2022-05-01 15:33:48 [facility] Medicine C4 COMPLEMENT 2022-05-01 15:33:48 [facility] Medicine TRYPTASE 2022-05-01 15:33:48 [facility] Medicine [place]GE 2022-05-01 15:33:48 [facility] IMMUNOGLOBULINS IGG IGA IGM 2022-05-01 15:33:48 [facility] LYMPHOCYTE PHENOTYPING 2022-05-01 15:33:48 [place] [id number] Medicine B-CELL MEMORY AND NAIVE 2022-05-01 15:33:48 [facility] N-METHYLHISTAMINE, URINE 2022-05-01 15:33:48 [facility] DIPTHERIA/TETANUS AB PANEL 2022-05-01 15:33:48 B [facility] STREP PNEUMONIAE ANTIBODY 2022-05-01 15:33:48 [facility] AMB REF TO ALLERGY AND 2022-04-30 10:15:04 [facility] IMMUNOLOGY IN DEPT OF Medicine MEDICINE [facility] PAP SETTING CHANGE 2022-04-19 15:05:09 [facility] llege [facility] SLEEP EQUIPMENT DOWNLOAD 2022-04-19 12:10:35 [facility] AMB REF TO ENT [facility] 2022-04-19 12:10:15 [facility] EMG NEUROLOGY 2022-04-09 11:11:17 [facility] AMB REF TO PT EXTERNAL 2022-04-09 11:04:43 [facility] VITAMIN B6 2022-04-06 11:30:00 [facility] VITAMIN B12 2022-04-06 11:30:00 [facility] VITAMIN B1 2022-04-06 11:30:00 [facility] VITAMIN A 2022-04-06 11:30:00 [facility] URINALYSIS, COMPLETE 2022-04-06 11:30:00 [facility] W/REFLEX TO CULTURE Medicine PROTIME \\T\\ PTT 2022-04-06 11:30:00 [facility] LIPID PANEL 2022-04-06 11:30:00 [facility] IRON, TIBC AND FERRITIN 2022-04-06 11:30:00 [facility] HEMOGLOBIN A1C 2022-04-06 11:30:00 [facility] FOLATE 2022-04-06 11:30:00 [facility] COMPREHENSIVE METABOLIC 2022-04-06 11:30:00 [facility] CBC W/AUTO DIFF WITH 2022-04-06 11:30:00 [facility] THYROID PROFILE (T3U - T4 - 2022-04-06 11:30:00 [facility] T7 - TSH) Medicine REFLEXIVE URINE CULTURE 2022-04-06 11:30:00 [facility] VITAMIN D, 25-HYDROXY, 2022-04-06 11:30:00 [facility] LC/MS/MS Medicine ASSIGNMENT OF BENEFITS 2022-04-03 18:47:41 [facility]assigned, [facility] URINALYSIS 2022-03-23 06:56:00 [facility] [place] [facility] HEAD WO CONTRAST 2022-03-23 06:27:39 [facility]onyHamden [facility] [place] AMB REF TO OPHTHALMOLOGY 2022-03-21 11:35:41 [facility] Medicine XR SHOULDER COMPLETE 2 2022-03-17 13:21:00 Ping Donny JEFFREY S t Luirma VIEWS MIN [facility] MR CERVICAL SPINE WITH & 2022-03-16 22:43:00 Ping Donny JEFFREY [facility] WITHOUT IV CONTRAST Medical [facility] er MR BRAIN WITH & WITHOUT IV 2022-03-16 22:42:00 Donny Feng [facility] ECG 12-LEAD 2022-03-16 01:36:41 Unknown, Hl7 [facility] ECG 12-LEAD 2022-03-16 01:36:41 AnaMariel rosado [facility] ECG 12-LEAD 2022-03-16 01:36:41 Unknown, Hl7 [facility] URINE CULTURE 2022-03-15 17:52:00 [facility] W/ REFLEX URINE 2022-03-15 17:52:00 Donny Feng [facility] MISCELLANEOUS LAB ORDER 2022-03-15 12:33:00 Saleem Albert [facility] COPPER 2022-03-15 09:09:00 [facility] BASIC METABOLIC PANEL 2022-03-15 05:20:00 [facility] PAN[facility] 2022-03-15 05:20:00 Yuli Robles [facility] MAGNESIUM 2022-03-15 05:20:00 [facility] VITAMIN B12 2022-03-15 03:24:00 [facility] T4 IF INDICATED 2022-03-15 03:24:00 Yuli Robles [facility] PROTEIN ELECTROPHORESIS, 2022-03-15 03:24:00 Yuli Robles [facility] CBC W/PLT COUNT & AUTO 2022-03-15 03:24:00 Yuli Robles [facility] CBC W/PLT COUNT & AUTO 2022-03-15 03:24:00 Yuli Robles [facility] SARS-COV2/RT-PCR ([facility] & 2022-03-14 22:10:00 Yuli Robles [facility] REF LABS) Medical Center CBC W/PLT COUNT & AUTO 2022-03-14 18:11:00 [facility] PT/APTT 2022-03-14 [facility]IVE METABOLIC 2022-03-14 18:11:00 Trina [facility] HCG, QUANTITATIVE, 2022-03-14 18:11:00 [facility] CBC W/PLT COUNT & AUTO 2022-03-14 18:11:00 [facility] IMMUNOFIXATION + PROTEIN 2022-03-12 21:32:00 Tigre Leonora [facility] ELECTROPHORESIS - SERUM Bhavana Medicine VITAMIN B12 2022-03-12 21:29:00 Tigre [facility] PYRUVIC ACID 2022-03-12 21:29:00 Tigre [facility] IMMUNOFIXATION + PROTEIN 2022-03-12 16:32:00 [facility] ELECTROPHORESIS - SERUM Medicine VITAMIN B12 2022-03-12 16:29:00 [facility] PYRUVIC ACID 2022-03-12 16:29:00 [facility] PARANEOPLASTIC PANEL, W RFL 2022-03-12 14:20:17 [facility] (SERUM) Medicine LACTATE 2022-03-12 14:20:17 [facility] Medicine REFERRAL- REQUEST/RESPONSE 2022-03-09 05:01:00 Doctor Unassigned , [facility] CT BRAIN WITHOUT IV 2022-03-07 17:56:[address] [facility] CONTRAST [facility] CBC W/PLT COUNT & AUTO 2022-03-07 17:21:00 Pili Springer RACHELE S t Luirma DIFFERENTIAL [facility] COMPREHENSIVE METABOLIC 2022-03-07 17:21:00 Pili Springer RACHELE [facility] PANEL [facility] MAGNESIUM 2022-03-07 17:21:[address] [facility] PHOSPHORUS 2022-03-07 17:21:[address] [facility] CBC W/PLT COUNT & AUTO 2022-03-07 17:21:00 Pili Springer [facility] DIFFERENTIAL [facility] AMB REF TO NEUROLOGY [facility] 2022-02-27 13:16:53 [facility] HIV AB/AG 4TH GEN W RFLX 2022-02-22 08:25:00 [facility] URINALYSIS, COMPLETE 2022-02-21 12:24:24 [facility]/REFLEX TO CULTURE Medicine CBC W/AUTO DIFF WITH 2022-02-21 12:16:08 [facility] PLATELETS Medicine [facility] METABOLIC 2022-02-21 12:16:08 [facility] CPAP MACHINE 2022-02-16 00:00:00 [facility] COMPREHENSIVE METABOLIC 2022-02-12 14:54:05 [facility] HIV AB/AG 4TH GEN W RFLX 2022-02-12 14:52:22 [facility] CBC W/AUTO DIFF WITH 2022-02-12 14:52:22 [facility] PLATELETS [facility] C DIFFICILE TOXIN PCR 2022-02-06 16:44:00 [facility] FL ESOPHAGUS 2022-01-15 11:07:00 RACHELE Meredith [facility] CBC W/AUTO DIFF WITH 2022-01-09 15:26:25 [facility] PLATELETS [facility] COMPREHENSIVE METABOLIC 2022-01-09 15:26:25 [facility] TSH 2022-01-09 15:26:25 [facility] CPAP MACHINE 2021-12-21 14:08:51 [facility] DIAGNOSTIC SLEEP STUDY 2021-12-21 08:15:20 [facility] DIAGNOSTIC SLEEP STUDY 2021-12-21 00:00:00 [facility] POLYSOMNOGRAPHY 2021-12-13 22:41:53 Pablo Fernandez [facility] POLYSOMNOGRAPHY REPORT - 2021-12-13 00:00:00 Provider, Sierra KENNEDY [facility] ELECTROCARDIOGRAM COMPLETE 2021-11-23 22:37:57 Abdoulaye Pierce [facility] ELECTROCARDIOGRAM COMPLETE 2021-11-23 17:37:57 Howard [facility] URINALYSIS W REFLEX MICRO 2021-11-22 13:55:00 Vicente [facility] URINE CULTURE 2021-11-22 13:55:00 [facility] PLEASE NOTE 2021-11-22 13:55:00 [facility] CBC W/AUTO DIFF WITH 2021-11-21 10:43:51 [facility] BASIC METABOLIC PANEL 2021-11-21 10:43:51 [facility] HEPATIC FUNCTION PANEL 2021-11-21 10:43:51 [facility] SEDIMENTATION RATE MODIFIED 2021-11-21 10:43:51 [facility] AMB REF TO PSYCHOLOGY 2021-11-16 11:34:51 [facility] VITAMIN B12 2021-11-14 15:44:21 [facility] VITAMIN B1 2021-11-14 15:44:21 [facility] VITAMIN A 2021-11-14 15:44:21 [facility] URINALYSIS, COMPLETE 2021-11-14 15:44:21 [facility]/REFLEX TO CULTURE Medicine PROTIME \\T\\ PTT 2021-11-14 15:44:21 [facility] LIPID PANEL 2021-11-14 15:44:21 [facility] IRON, TIBC AND FERRITIN 2021-11-14 15:44:21 [facility] HEMOGLOBIN A1C 2021-11-14 15:44:21 [facility] FOLATE 2021-11-14 15:44:21 [facility] COMPREHENSIVE METABOLIC 2021-11-14 15:44:21 [facility] CBC W/AUTO DIFF WITH 2021-11-14 15:44:21 [facility] AMB REF TO PHYSICAL MED 2021-11-14 15:44:21 [facility] THYROID PROFILE (T3U - T4 - 2021-11-14 15:44:21 [facility] T7 - TSH) Medicine AMB REF TO BARIATRIC 2021-11-14 15:44:21 [facility] of DIRECTOR OF ENGINEERING [facility] VITAMIN D 25 HYDROXY 2021-11-14 15:44:20 [facility] VITAMIN B6 2021-11-14 15:44:20 [facility] AMB REF TO GENETICS(GENERAL 2021-11-08 11:25:03 [facility] \\T\\ ALL CANCERS)[facility] AMB REF TO BARIATRIC 2021-11-06 13:46:59 [facility] of SURGERY [facility] AMB REF TO SLEEP 2021-11-06 13:45:36 [facility] Deangelo ege of [facility] Medicin e CT ABDOMEN/PELVIS WITH IV 2021-10-03 21:22:00 Makenzie Varela [facility] CONTRAST [facility] URINALYSIS W/ REFLEX URINE 2021-10-03 20:00:00 Makenzie Varela [facility] CULTURE [facility] SARS-COV2/RT-PCR ([facility] & 2021-10-03 19:58:00 Makenzie Varela [facility] REF LABS) Medical Center CBC W/PLT COUNT & AUTO 2021-10-03 19:40:00 Makenzie Varela [facility] DIFFERENTIAL Medical Center COMPREHENSIVE METABOLIC 2021-10-03 19:40:00 Makenzie Varela [facility] PANEL [facility] B-TYPE NATRIURETIC FACTOR 2021-10-03 19:40:00 Makenzie Varela [facility] (BNP) [facility] Center HCG, QUANTITATIVE, 2021-10-03 19:40:00 Makenzie Varela [facility] HIGH SENSITIVITY TROPONIN I 2021-10-03 19:40:[address] [facility] MAGNESIUM 2021-10-03 19:40:[address] [facility] PHOSPHORUS 2021-10-03 19:40:[address] [facility] LIPASE 2021-10-03 19:40:00 Varela [facility] LACTIC ACID, VENOUS 2021-10-03 19:40:00 [facility] CBC W/PLT COUNT & AUTO 2021-10-03 19:40:00 Makenzie Varela [facility] XR CHEST 2 VIEWS 2021-10-03 19:06:00 [facility] ECG 12-LEAD 2021-10-03 18:24:15 Unknown, Hl7 [facility] ECG 12-LEAD 2021-10-03 18:24:15 Unknown, Hl7 [facility] ECG 12-LEAD 2021-10-03 18:24:15 Unknown, Hl7 [facility] EKG-SCANNED 2021-10-03 00:00:00 Provider, [facility] Scanning [facility] [place] OCCUPATIONAL THERAPY 2021-06-27 13:19:30 [facility] LOW COMPLEX 30 MINS Medicin e [place] CANALITH REPOSITIONING 2021-06-27 13:19:30 [facility] PROCEDURE, PER DAY Medicine AMB REF TO SIVAKUMAR BALANCE 2021-06-27 11:47:25 [facility] HOMOCYSTEINE 2021-03-21 19:23:28 [facility] LIPID PANEL 2021-03-21 19:23:28 [facility] PROTEIN ELECTROPHORESIS - 2021-03-21 19:23:28 [facility] TO IMMUNOFIXATION Medicin e RPR - W RFLX TO MHA-TP 2021-03-21 19:23:28 [facility] SEDIMENTATION RATE MODIFIED 2021-03-21 19:23:28 [facility] Medicine T3 UPTAKE 2021-03-21 19:23:28 [place] [facility] 2021-03-21 19:23:28 [facility] TSH 2021-03-21 19:23:28 [facility] VITAMIN B12 2021-03-21 19:23:28 [facility] HEMOGLOBIN A1C 2021-03-21 19:23:28 [facility] VITAMIN D 25 HYDROXY 2021-03-21 19:23:28 [facility] FOLATE 2021-03-21 19:23:28 [facility] SJOGREN'S SS-A AND SS-B 2021-03-21 19:23:28 [facility] VITAMIN B6 2021-03-21 19:23:28 [facility] VITAMIN B1 2021-03-21 19:23:28 [facility] PARANEOPLASTIC PANEL, W RFL 2021-03-21 19:23:28 [facility] (SERUM) [facility] ANGIOTENSIN CONVERTING 2021-03-21 19:23:28 [facility] ENZYME [facility] PORPHOBILINOGEN SCREEN 2021-03-21 19:23:28 [facility] AMB REF TO NEUROPSYCH 2021-03-21 19:23:[address] [facility] AMB REF TO SLEEP 2021-03-21 19:23:27 [facility]ge of [facility]-STUDY \\T\\ TREATMENT Medic ine WARREN REFLEX TO NUCLEAR AB 2021-03-21 19:23:27 [facility] APOLIPOPROTEIN E MUTATION - 2021-03-21 19:23:27 [facility] CARDIAC [facility] CBC W/AUTO DIFF WITH 2021-03-21 19:23:27 [facility] PLATELETS [facility] COMPREHENSIVE METABOLIC 2021-03-21 19:23:27 [facility] [place] COMPREHENSIVE HEARING 2021-03-03 15:03:51 [facility] [place] TYMPANOMETRY 2021-03-03 15:03:51 [facility] AMB REF TO SIVAKUMAR AUDIOLOGY 2021-03-03 14:27:08 [facility] ASSIGNMENT OF BENEFITS 2020-03-10 18:05:52 [facility], [facility] Post Op Promis 29 Survey 2020-01-08 00:00:00 [facility] US Extremity lower venous 2019-12-23 00:00:00 [facility] Doppler Unilat 76812 BILATERAL VENOUS DUPLEX 2019-12-22 05:01:08 Dede Schaffer [facility] LOWER EXTREMITY BY VASCULAR Medi tyler Branch LAB XR CHEST 2 VW 2019-12-22 04:26:01 [facility] (ID NOW RAPID 2019-12-22 03:39:00 Sarbjit [facility] TESTING) Medical Branch TROPONIN I 2019-12-22 03:33:00 Sarbjit [facility] HEPATIC FUNCTION PANEL 2019-12-22 03:33:00 Sarbjit [facility] ([id number]) (ALB,T.PRO,BILI [facility] T,BU/BC,ALT,AST,ALK PHOS) BASIC METABOLIC PANEL (NA, 2019-12-22 03:33:00 Sarbjit [facility] K, CL, CO2, GLUCOSE, BUN, Medica l Branch CREATININE, CA) CBC WITH DIFFERENTIAL 2019-12-22 03:33:00 Sarbjit [facility] D-DIMER 2019-12-22 03:33:00 Sarbjit [facility] N-TERMINAL PRO-BNP 2019-12-22 03:33:00 Sarbjit Dede [facility] URINALYSIS 2019-12-22 03:22:00 Sarbjit [facility] POCT TEST 2019-12-22 03:21:00 Dede Schaffer [facility] NOTICE OF PRIVACY PRACTICES 2019-12-22 02:50:34 Doctor Cal winn [facility] Name [facility] CONSENT/REFUSAL FOR 2019-12-22 02:50:16 Doctor Gonzalez [facility] DIAGNOSIS AND TREATMENT [facility] MR Ankle wo contrast [id number] 2019-10-19 00:00:00 [facility] MRI Spine lumbar wo 2019-08-24 00:00:00 [facility] contrast [id number] XR HIPS 2 VW RIGHT 2019-08-20 18:42:57 Mehreen Marquez [facility] NOTICE OF PRIVACY PRACTICES 2019-08-20 17:37:34 Doctor Cal winn [facility] CONSENT/REFUSAL FOR 2019-08-20 17:37:25 Doctor Unassigned, [facility] DIAGNOSIS AND TREATMENT [facility] Post Op Promis 29 Survey 2019-05-20 00:00:00 [facility] [QL[facility]] CLOSTRIDIUM DIFFICILE 2019-04-16 00:00:00 [facility] TOXIN A AND B, EIA [QLH] CULTURE, STOOL 2019-04-16 00:00:00 [facility] (CAMPYLOBACTER, SALMONELLA/SHIGELLA) MR Shoulder wo contrast 2019-04-08 00:00:00 [facility] [id number] Colonoscopy 2019-03-06 00:00:00 [facility] [[facility]] CLOSTRIDIUM DIFFICILE 2019-03-05 00:00:00 [facility] TOXIN A AND B, EIA [QLH] CULTURE, URINE, 2019-02-13 00:00:00 [facility] ROUTINE [LH] GC/CT by Amp Det 2019-02-13 00:00:00 [facility] (APTIMA) MR Ankle wo contrast [id number] 2019-02-10 00:00:00 [facility] [QH] DRUG 2019-02-09 00:00:00 [facility] SCREEN,COMPREHENSIVE (URINE) XRAY Clavicle Bilateral 2019-01-29 00:00:00 [facility] 93875 [H] Celiac Pnl w/Rflx 2019-01-23 00:00:00 [facility] Endomy Ab Ttr [QLH] HEPATIC FUNCTION 2019-01-23 00:00:00 [facility] PANEL [H] LUNDBERG FibroSure 2019-01-23 00:00:00 [facility] [[facility]] CALPROTECTIN, STOOL 2019-01-23 00:00:00 [facility] US Abdomen Doppler 40517 2019-01-23 00:00:00 [facility] Sleep Lab - Sleep Study 2019-01-14 00:00:00 [facility] Split Night [H] CK Isoenzymes 2019-01-14 00:00:00 [facility] Complete PFTs w/DLCO and 2019-01-14 00:00:00 [facility] Lung Volumes [N] 2D Echo complete, with 2019-01-14 00:00:00 [facility] Doppler 00155 [QLH] URINALYSIS, COMPLETE 2019-01-13 00:00:00 U T [...] Views 2019-01-13 00:00:00 [facility] Bilateral 34680 XRAY Chest 2 views [id number] 2019-01-13 00:00:00 [facility] XRAY Hip bilateral w pelvis 2019-01-13 00:00:00 [facility] and both lat hips 78647 XRAY Spine lumbar AP 2019-01-13 00:00:00 [facility] lateral 76686 XRAY Spine cervical 2 or 3 2019-01-13 00:00:00 [facility] view 16276 XRAY Shoulder series [id number] 2019-01-13 00:00:00 [facility] [QL[facility]] TSH, [...] (4 - Td or Tdap)] Future Scheduled 2025-10-01 DTAP/TDAP/TD VACCINES [facility] 00:[facility]00 (4 - Td or Tdap) [code Medic al Center = DTAP/TDAP/TD VACCINES (4 - Td or Tdap)] Future Scheduled 2025-10-01 DTAP/TDAP/TD VACCINES [facility] Test 00:00:00 (4 - Td or Tdap) [code Medic al Center = DTAP/TDAP/TD VACCINES (4 - Td or Tdap)] Future Scheduled 2025-04-[address] [facility] Test 00:[facility]:00 (procedure) [code = [facility] 56944419] Future Scheduled 2025-04-[address] [facility] Test 00:00:00 (procedure) [code = [facility] 11673175] Future Scheduled 2025-04-[address] [facility] Test 00:00:00 (procedure) [code = [facility] [id number]] Future Scheduled 2023-07-[address] [facility] Test 00:00:00 [facility] r Screening (12+) [code = Tobacco Cessation Counseling and Screening (12+)] Future Scheduled 2023-07-[address] [facility] Test 00:00:00 [facility] r Screening (12+) [code = Tobacco Cessation Counseling and Screening (12+)] Future Scheduled 2023-06-[address] [facility] Test 00:00:00 [facility] r Screening (12+) [code = Tobacco Cessation Counseling and Screening (12+)] Future Scheduled 2022-07-20 Pneumococcal Vaccine: [facility] 12:51:46 Pediatrics (0 to 5 Hospital Years) and At-Risk Patients (6 to 64 Years) (1 - PCV) [code = Pneumococcal Vaccine: Pediatrics (0 to 5 Years) and At-Risk Patients (6 to 64 Years) (1 - PCV)] Future Scheduled 2022-07-20 Screening for Worship Test 12:51:46 malignant neoplasm of Hospit al cervix (procedure) [code = 530533062] Future Scheduled 2022-07-20 BREAST CANCER Worship Test 12:51:46 SCREENING [code = Hospital BREAST CANCER SCREENING] Future Scheduled 2022-07-20 COVID-19 VACCINE (5 - [facility] 12:51:46 Booster for Moderna Hospital series) [code = COVID-19 VACCINE (5 - Booster for Moderna series)] Future Scheduled 2022-07-20 INFLUENZA VACCINE Method ist Test 12:51:46 [code = INFLUENZA Hospital VACCINE] Future Scheduled 2022-07-06 Pneumococcal Vaccine: [facility] 15:48:51 Pediatrics (0 to 5 Hospital Years) and At-Risk Patients (6 to 64 Years) (1 - PCV) [code = Pneumococcal Vaccine: Pediatrics (0 to 5 Years) and At-Risk Patients (6 to 64 Years) (1 - PCV)] Future Scheduled 2022-07-06 Screening for Worship Test 15:48:51 malignant neoplasm of Hospit al cervix (procedure) [code = 602875808] Future Scheduled 2022-07-06 BREAST CANCER Worship Test 15:48:51 SCREENING [code = Hospital BREAST CANCER SCREENING] Future Scheduled 2022-07-06 COVID-19 VACCINE (5 - [facility] 15:48:51 Booster for Moderna Hospital series) [code = COVID-19 VACCINE (5 - Booster for Moderna series)] Future Scheduled 2022-07-06 INFLUENZA VACCINE Method ist Test 15:48:51 [code = INFLUENZA Hospital VACCINE] Future Scheduled 2022-06-28 Pneumococcal Vaccine: [facility] 13:07:28 Pediatrics (0 to 5 Hospital Years) and At-Risk Patients (6 to 64 Years) (1 - PCV) [code = Pneumococcal Vaccine: Pediatrics (0 to 5 Years) and At-Risk Patients (6 to 64 Years) (1 - PCV)] Future Scheduled 2022-06-28 Screening for Worship Test 13:07:28 malignant neoplasm of Hospit al cervix (procedure) [code = 432855243] Future Scheduled 2022-06-28 BREAST CANCER Worship Test 13:07:28 SCREENING [code = Hospital BREAST CANCER SCREENING] Future Scheduled 2022-06-28 COVID-19 VACCINE (5 - [facility] 13:07:28 Booster for Moderna Hospital series) [code = COVID-19 VACCINE (5 - Booster for Moderna series)] Future Scheduled 2022-06-28 INFLUENZA VACCINE Method ist Test 13:07:28 [code = INFLUENZA Hospital VACCINE] Future Scheduled 2022-05-06 [place] NASAL ENDOSCOPY,DX Ordered: [facility] Test 22:44:59 [code = 75767] 05/06/2022 of Medicine Future Scheduled 2022-05-06 Screening for [facility] Test 22:38:08 malignant neoplasm of of Med icine colon (procedure) [code = 950381849] Future Scheduled 2022-05-06 COVID-19 Vaccine (3 - [facility] Test 22:38:08 Moderna risk series) of Medi cine [code = COVID-19 Vaccine (3 - Moderna risk series)] Future Scheduled 2022-05-06 FLU VACCINE > 6 MONTHS Postponed from [facility] Test 22:38:08 [code = FLU VACCINE > 01/22/2022 of Med icine 6 MONTHS] (Postpone Reason: Patient declined today) Future Scheduled 2022-05-06 BMI FOLLOW UP PLAN [facility] Test 22:38:08 [code = BMI FOLLOW UP of Med icine PLAN] Future Scheduled 2022-05-06 Screening for [facility] Test 22:38:08 malignant neoplasm of of Med icine breast (procedure) [code = 299795914] Future Scheduled 2022-05-06 Screening for [facility] Test 22:38:08 malignant neoplasm of of Med icine cervix (procedure) [code = 434011797] Future Scheduled 2022-05-06 TETANUS SHOT (ADULT) [facility] Test 22:38:08 [code = TETANUS SHOT of Medi cine (ADULT)] Future Scheduled 2022-04-30 CT SINUS W FUSION 1 [facility] 10:15:04 [code = 73839] starting of Medicine 04/30/2022 until 04/30/2023 Future Scheduled 2022-04-24 Screening for [facility] Test 14:51:25 malignant neoplasm of of Med icine colon (procedure) [code = 010411173] Future Scheduled 2022-04-24 COVID-19 Vaccine (3 - [facility] [employer] [employer] Test 14:51:25 Moderna risk series) of Medi cine [code = COVID-19 Vaccine (3 - Moderna risk series)] Future Scheduled 2022-04-24 FLU VACCINE > 6 MONTHS Postponed from [facility] Test 14:51:25 [code = FLU VACCINE > 01/22/2022 of Med icine 6 MONTHS] (Postpone Reason: Patient declined today) Future Scheduled 2022-04-[address] [facility] Test 14:51:25 [code = BMI FOLLOW UP of Med icine PLAN] Future Scheduled 2022-04-24 Screening for [facility] Test 14:51:25 malignant neoplasm of of Med icine breast (procedure) [code = 015549368] Future Scheduled 2022-04-24 Screening for [facility] Test 14:51:25 malignant neoplasm of of Med icine cervix (procedure) [code = 898564013] Future Scheduled 2022-04-24 TETANUS SHOT (ADULT) [facility] Test 14:51:25 [code = TETANUS SHOT of Medi cine (ADULT)] Future Scheduled 2022-04-10 Screening for [facility] Test 06:58:13 malignant neoplasm of of Med icine colon (procedure) [code = 927796518] Future Scheduled 2022-04-10 COVID-19 Vaccine (3 - [facility] [employer] [employer] Test 06:58:13 Moderna risk series) of Medi cine [code = COVID-19 Vaccine (3 - Moderna risk series)] Future Scheduled 2022-04-10 FLU VACCINE > 6 MONTHS Postponed from [facility] Test 06:58:13 [code = FLU VACCINE > 01/22/2022 of Med icine 6 MONTHS] (Postpone Reason: Patient declined today) Future Scheduled 2022-04-[address] [facility] [address] Test 06:58:13 [code = BMI FOLLOW UP of Med icine PLAN] Future Scheduled 2022-04-10 Screening for [facility] Test 06:58:13 malignant neoplasm of of Med icine breast (procedure) [code = 535013069] Future Scheduled 2022-04-10 Screening for [facility] Test 06:58:13 malignant neoplasm of of Med icine cervix (procedure) [code = 507077112] Future Scheduled 2022-04-10 TETANUS SHOT (ADULT) [employer] Test 06:58:13 [code = TETANUS SHOT of Medi cine (ADULT)] Future Scheduled 2022-04-09 Screening for [facility] Test 17:05:18 malignant neoplasm of of Med icine colon (procedure) [code = 666714802] Future Scheduled 2022-04-09 COVID-19 Vaccine (3 - [facility] Test 17:05:18 Moderna risk series) of Medi cine [code = COVID-19 Vaccine (3 - Moderna risk series)] Future Scheduled 2022-04-09 FLU VACCINE > 6 MONTHS Postponed from [facility] Test 17:05:18 [code = FLU VACCINE > 01/22/2022 of Med icine 6 MONTHS] (Postpone Reason: Patient declined today) Future Scheduled 2022-04-[address] [facility] Test 17:05:18 [code = BMI FOLLOW UP of Med icine PLAN] Future Scheduled 2022-04-09 Screening for [facility] Test 17:05:18 malignant neoplasm of of Med icine breast (procedure) [code = 926315915] Future Scheduled 2022-04-09 Screening for [facility] Test 17:05:18 malignant neoplasm of of Med icine cervix (procedure) [code = 007330212] Future Scheduled 2022-04-09 TETANUS SHOT (ADULT) [employer] Test 17:05:18 [code = TETANUS SHOT of Medi cine (ADULT)] Future Scheduled 2022-04-09 EMG NEUROLOGY [code = Ordered: [facility] Test 11:11:17 NOCPT] 04/09/2022 of Medicine Future Scheduled 2022-04-09 EMG PM&R [code = 1 Occurrences [facility] Test 11:06:28 96918] starting of Medicine 04/09/2022 until 04/09/2023 Future Scheduled 2022-03-30 Pneumococcal Combined [employer] Test 08:28:24 (2 - PPSV23 or PCV20) of Med icine [code = Pneumococcal Combined (2 - PPSV23 or PCV20)] Future Scheduled 2022-03-30 Screening for [facility] Test 08:28:24 malignant neoplasm of of Med icine colon (procedure) [code = 192453303] Future Scheduled 2022-03-30 COVID-19 Vaccine (3 - [employer] Test 08:28:24 Moderna risk series) of Medi cine [code = COVID-19 Vaccine (3 - Moderna risk series)] Future Scheduled 2022-03-30 FLU VACCINE > 6 MONTHS Postponed from [facility] [employer] Test 08:28:24 [code = FLU VACCINE > 01/22/2022 of Med icine 6 MONTHS] (Postpone Reason: Patient declined today) Future Scheduled 2022-03-[address] [facility] [address] Test 08:28:24 [code = BMI FOLLOW UP of Med icine PLAN] Future Scheduled 2022-03-30 Screening for [facility] Test 08:28:24 malignant neoplasm of of Med icine breast (procedure) [code = 461538546] Future Scheduled 2022-03-30 Screening for [facility] Test 08:28:24 malignant neoplasm of of Med icine cervix (procedure) [code = 822868103] Future Scheduled 2022-03-30 TETANUS SHOT (ADULT) [facility] Test 08:28:24 [code = TETANUS SHOT of Medi cine (ADULT)] Future Scheduled 2022-03-17 Pneumococcal Combined [employer] Test 10:49:37 (2 - PPSV23 or PCV20) of Med icine [code = Pneumococcal Combined (2 - PPSV23 or PCV20)] Future Scheduled 2022-03-17 MEDICARE AWV (Initial) [facility] [employer] [employer] Test 10:49:37 [code = MEDICARE AWV of Medi cine (Initial)] Future Scheduled 2022-03-17 Screening for [facility] Test 10:49:37 malignant neoplasm of of Med icine colon (procedure) [code = 413326288] Future Scheduled 2022-03-17 COVID-19 Vaccine (3 - [employer] Test 10:49:37 Moderna risk series) of Medi cine [code = COVID-19 Vaccine (3 - Moderna risk series)] Future Scheduled 2022-03-17 FLU VACCINE > 6 MONTHS Postponed from [facility] Test 10:49:37 [code = FLU VACCINE > 01/22/2022 of Med icine 6 MONTHS] (Postpone Reason: Patient declined today) Future Scheduled 2022-03-17 BMI FOLLOW UP PLAN [facility] Test 10:49:37 [code = BMI FOLLOW UP of Med icine PLAN] Future Scheduled 2022-03-17 Screening for [facility] Test 10:49:37 malignant neoplasm of of Med icine breast (procedure) [code = 080228724] Future Scheduled 2022-03-17 Screening for [facility] Test 10:49:37 malignant neoplasm of of Med icine cervix (procedure) [code = 718025772] Future Scheduled 2022-03-17 TETANUS SHOT (ADULT) [facility] Test 10:49:37 [code = TETANUS SHOT of Medi cine (ADULT)] Future Scheduled 2022-03-12 PARANEOPLASTIC PANEL, Ordered: [facility] Test 14:20:17 W RFL (SERUM) [code = 03/12/2022 of Med icine NOCPT] Future Scheduled 2022-03-12 LACTATE [code = Ordered: [facility] Test 14:20:17 [id number]] 03/12/2022 of Medicine Future Scheduled 2022-03-12 MRI BRAIN WO CONTRAST 1 Occ[facility]rences [facility] Test 14:20:17 [code = 47344-2] starting of Medicine 03/12/2022 until 03/12/2023 Future Scheduled 2022-03-08 Pneumococcal Combined [facility] Test 08:55:31 (2 - PPSV23 or PCV20) of Med icine [code = Pneumococcal Combined (2 - PPSV23 or PCV20)] Future Scheduled 2022-03-08 [facility]IC[facility] AW[facility] (Initial) [facility] 08:55:31 [code = MEDICARE AWV of Medi cine (Initial)] Future Scheduled 2022-03-08 Screening for [facility] Test 08:55:31 malignant neoplasm of of Med icine colon (procedure) [code = 758974897] Future Scheduled 2022-03-08 COVID-19 Vaccine (3 - [facility] Test 08:55:31 Moderna risk series) of Medi Prong [code = COVID-19 Vaccine (3 - Moderna risk series)] Future Scheduled 2022-03-08 FLU VACCINE > 6 MONTHS Postponed from [facility] Test 08:55:31 [code = FLU VACCINE > 01/22/2022 of Med icine 6 MONTHS] (Postpone Reason: Patient declined today) Future Scheduled 2022-03-[address] UP [address] Test 08:55:31 [code = BMI FOLLOW UP of Med icine PLAN] Future Scheduled 2022-03-08 Screening for [facility] Test 08:55:31 malignant neoplasm of of Med icine breast (procedure) [code = 379434814] Future Scheduled 2022-03-08 Screening for [facility] Test 08:55:31 malignant neoplasm of of Med icine cervix (procedure) [code = 396167316] Future Scheduled 2022-03-08 TETANUS SHOT (ADULT) [facility] Test 08:55:31 [code = TETANUS SHOT of Medi cine (ADULT)] Future Scheduled 2022-03-07 CBC W/AUTO DIFF WITH Ordered: [facility] Test 12:22:04 PLATELETS [code = 03/07/2022 of Medicin e 17011-1] Future Scheduled 2022-03-07 COMPREHENSIVE Ordered: [facility] Test 12:22:04 METABOLIC PANEL [code 03/07/2022 of Med icine = 81256-5] Future Scheduled 2022-03-07 CK [code = 2157-6] Ordered: [facility] Test 12:22:04 03/07/2022 of Medicine Future Scheduled 2022-03-07 C-REACTIVE PROTEIN Ordered: [facility] Test 12:22:04 [code = 1988-5] 03/07/2022 of Medicine Future Scheduled 2022-03-07 SEDIMENTATION RATE Ordered: [facility] Test 12:22:04 MODIFIED AREN 03/07/2022 of Medic ine [code = 4537-7] Future Scheduled 2022-03-07 WARREN W REFLEX TITER Ordered: [facility] Test 12:22:04 [code = NOCPT] 03/07/2022 of Medicine Future Scheduled 2022-03-07 CARDIOLIPIN ANTIBODIES Ordered: [facility] Test 12:22:04 [code = 59601] 03/07/2022 of Medicine Future Scheduled 2022-03-07 BETA-2 GLYCOPROTEIN Ordered: [facility] Test 12:22:04 ANTIBODIES [code = 03/07/2022 of Medici ne 1951-] Future Scheduled 2022-03-07 LUPUS ANTICOAGULANT Ordered: [facility] 12:22:04 WITH REFLEX [code = 03/07/2022 of Medic ine NOCPT] Future Scheduled 2022-03-07 RHEUMATOID FACTOR Ordered: [facility] Test 12:22:04 [code = 03359-5] 03/07/2022 of Medicine Future Scheduled 2022-03-07 FLIGHT OPERATIONS MANAGER ANTIBODY [code = Ordered: [facility] Test 12:22:04 NOCPT] 03/07/2022 of Medicine Future Scheduled 2022-03-07 BRADSHAW (SM) ANTIBODY Ordered: [facility] 12:22:04 [code = 64461-0] 03/07/2022 of Medicine Future Scheduled 2022-03-07 SJOGREN'S SS-A AND Ordered: [facility] Test 12:22:04 SS-B ANTIBODIES [code 03/07/2022 of Med icine = NOCPT] Future Scheduled 2022-03-07 DNA (DS) ANTIBODY, [facility]dered: [facility] 12:22:04 CRITHIDIA IFA W/RX 03/07/2022 of Medici ne TITER [code = 6457-6] Future Scheduled 2022-03-07 COMPLEMENT C3 AND C4 Ordered: [facility] Test 12:22:04 [code = NOCPT] 03/07/2022 of Medicine Future Scheduled 2022-03-07 URINALYSIS, COMPLETE Ordered: [facility] Test 12:22:04 W/REFLEX TO CULTURE 03/07/2022 of Medic ine [code = 49810-8] Future Scheduled 2022-03-07 RANDOM URINE Ordered: [facility] Test 12:22:04 PROTEIN/CREATININE 03/07/2022 of Medici ne [code = 2890-2] Future Scheduled 2022-03-07 Pneumococcal Combined [employer] Test 11:56:57 (2 - PPSV23 or PCV20) of Med icine [code = Pneumococcal Combined (2 - PPSV23 or PCV20)] Future Scheduled 2022-03-07 MEDICARE AWV (Initial) [facility] [employer] Test 11:56:57 [code = MEDICARE AWV of Medi cine (Initial)] Future Scheduled 2022-03-07 Screening for [facility] Test 11:56:57 malignant neoplasm of of Med icine colon (procedure) [code = 529344951] Future Scheduled 2022-03-07 COVID-19 Vaccine (3 - [facility] Test 11:56:57 Moderna risk series) of Medi cine [code = COVID-19 Vaccine (3 - Moderna risk series)] Future Scheduled 2022-03-07 FLU VACCINE > 6 MONTHS Postponed from [facility] Test 11:56:57 [code = FLU VACCINE > 01/22/2022 of Med icine 6 MONTHS] (Postpone Reason: Patient declined today) Future Scheduled 2022-03-07 BMI FOLLOW UP PLAN [facility] Test 11:56:57 [code = BMI FOLLOW UP of Med icine PLAN] Future Scheduled 2022-03-07 Screening for [facility] Test 11:56:57 malignant neoplasm of of Med icine breast (procedure) [code = 949438990] Future Scheduled 2022-03-07 Screening for [facility] Test 11:56:57 malignant neoplasm of of Med icine cervix (procedure) [code = 916944172] Future Scheduled 2022-03-07 TETANUS SHOT (ADULT) [facility] Test 11:56:57 [code = TETANUS SHOT of Medi cine (ADULT)] Future Scheduled 2022-03-06 MRI CERVICAL SPINE WO 1 Occurrences [facility] Test 14:50:01 CONTRAST [code = starting of Medicine 25914-8] 03/06/2022 until 03/06/2023 Future Scheduled 2022-02-22 INFLUENZA VACCINE (#1) [facility] 00:[facility]:00 [code = INFLUENZA Medical Ce nter VACCINE (#1)] Future Scheduled 2022-02-22 INFLUENZA VACCINE (#1) [facility] 00:00:00 [code = INFLUENZA Medical Ce nter VACCINE (#1)] Future Scheduled 2022-02-22 INFLUENZA VACCINE (#1) [facility] 00:00:00 [code = INFLUENZA Medical Ce nter VACCINE (#1)] Future Scheduled 2022-02-21 Human immunodeficiency [facility] Test 12:57:58 virus screening of Medicine (procedure) [code = 185228433] Future Scheduled 2022-02-21 Pneumococcal Combined [employer] Test 12:57:58 (2 - PPSV23 or PCV20) of Med icine [code = Pneumococcal Combined (2 - PPSV23 or PCV20)] Future Scheduled 2022-02-21 MEDICARE AWV (Initial) [employer] Test 12:57:58 [code = MEDICARE AWV of Medi cine (Initial)] Future Scheduled 2022-02-21 Screening for [facility] Test 12:57:58 malignant neoplasm of of Med icine colon (procedure) [code = 950621416] Future Scheduled 2022-02-21 COVID-19 Vaccine (3 - [employer] Test 12:57:58 Moderna risk series) of Medi cine [code = COVID-19 Vaccine (3 - Moderna risk series)] Future Scheduled 2022-02-21 FLU VACCINE > 6 MONTHS Postponed from [facility] Test 12:57:58 [code = FLU VACCINE > 01/22/2022 of Med icine 6 MONTHS] (Postpone Reason: Patient declined today) Future Scheduled 2022-02-[address] [facility] [employer] [facility] 12:57:58 [code = BMI FOLLOW UP of Med icine PLAN] Future Scheduled 2022-02-21 Screening for [facility] 12:57:58 malignant neoplasm of of Med icine breast (procedure) [code = 204703680] Future Scheduled 2022-02-21 Screening for [facility] 12:57:58 malignant neoplasm of of Med icine cervix (procedure) [code = 376899531] Future Scheduled 2022-02-21 TETANUS SHOT (ADULT) [employer] [facility] 12:57:58 [code = TETANUS SHOT of Medi cine (ADULT)] Future Scheduled 2022-02-21 URINALYSIS, COMPLETE Ordered: [employer] [facility] 12:24:24 W/REFLEX TO CULTURE 02/21/2022 of Medic ine [code = 61255-8] Future Scheduled 2022-02-21 CBC W/AUTO DIFF WITH Ordered: [employer] [facility] 12:16:08 PLATELETS [code = 02/21/2022 of Medicin e 18704-9] Future Scheduled 2022-02-21 COMPREHENSIVE Ordered: [employer] [employer] [facility] 12:16:08 METABOLIC PANEL [code 02/21/2022 of Med icine = 87210-2] Future Scheduled 2022-01-28 Screening for [facility] [employer] 10:06:50 malignant neoplasm of of Med icine breast (procedure) [code = 091694059] Future Scheduled 2022-01-28 Human immunodeficiency B [facility] Test 10:06:50 virus screening of Medicine (procedure) [code = 638865283] Future Scheduled 2022-01-28 Pneumococcal Combined [facility] Test 10:06:50 (2 - PPSV23 or PCV20) of Med icine [code = Pneumococcal Combined (2 - PPSV23 or PCV20)] Future Scheduled 2022-01-28 Screening for [facility] Test 10:06:50 malignant neoplasm of of Med icine colon (procedure) [code = 424121072] Future Scheduled 2022-01-28 COVID-19 Vaccine (3 - [facility] Test 10:06:50 Moderna risk series) of Medi cine [code = COVID-19 Vaccine (3 - Moderna risk series)] Future Scheduled 2022-01-28 FLU VACCINE > 6 MONTHS Postponed from [facility] Test 10:06:50 [code = FLU VACCINE > 01/22/2022 of Med icine 6 MONTHS] (Postpone Reason: Patient declined today) Future Scheduled 2022-01-28 BMI FOLLOW UP PLAN [facility] Test 10:06:50 [code = BMI FOLLOW UP of Med icine PLAN] Future Scheduled 2022-01-28 Screening for [employer] [facility] [employer] [facility] 10:06:50 malignant neoplasm of of Med icine cervix (procedure) [code = 781300466] Future Scheduled 2022-01-28 TETANUS SHOT (ADULT) [facility] Test 10:06:50 [code = TETANUS SHOT of Medi cine (ADULT)] Future Scheduled 2022-01-24 Screening for [employer] [facility] [employer] [facility] 12:15:08 malignant neoplasm of of Med icine breast (procedure) [code = 821086625] Future Scheduled 2022-01-24 Human immunodeficiency B [facility] Test 12:15:08 virus screening of Medicine (procedure) [code = 604229208] Future Scheduled 2022-01-24 Pneumococcal Combined [facility] Test 12:15:08 (2 - PPSV23 or PCV20) of Med icine [code = Pneumococcal Combined (2 - PPSV23 or PCV20)] Future Scheduled 2022-01-24 Screening for [facility] [employer] 12:15:08 malignant neoplasm of of Med icine colon (procedure) [code = 018999635] Future Scheduled 2022-01-24 COVID-19 Vaccine (3 - [employer] [facility] 12:15:08 Moderna risk series) of Medi cine [code = COVID-19 Vaccine (3 - Moderna risk series)] Future Scheduled 2022-01-24 FLU VACCINE > 6 MONTHS Postponed from [facility] Test 12:15:08 [code = FLU VACCINE > 01/22/2022 of Med icine 6 MONTHS] (Postpone Reason: Patient declined today) Future Scheduled 2022-01-24 BMI FOLLOW UP PLAN [facility] Test 12:15:08 [code = BMI FOLLOW UP of Med icine PLAN] Future Scheduled 2022-01-24 Screening for [facility] [employer] 12:15:08 malignant neoplasm of of Med icine cervix (procedure) [code = 459436053] Future Scheduled 2022-01-24 TETANUS SHOT (ADULT) [facility] Test 12:15:08 [code = TETANUS SHOT of Medi cine (ADULT)] Future Scheduled 2022-01-23 Screening for [facility] [employer] 14:14:09 malignant neoplasm of of Med icine breast (procedure) [code = 387009191] Future Scheduled 2022-01-23 Human immunodeficiency B [facility] Test 14:14:09 virus screening of Medicine (procedure) [code = 145553571] Future Scheduled 2022-01-23 Pneumococcal Combined [facility] [employer] Test 14:14:09 (2 - PPSV23 or PCV20) of Med icine [code = Pneumococcal Combined (2 - PPSV23 or PCV20)] Future Scheduled 2022-01-23 Screening for [facility] [employer] [facility] 14:14:09 malignant neoplasm of of Med icine colon (procedure) [code = 185809917] Future Scheduled 2022-01-23 COVID-19 Vaccine (3 - [...] of Med icine cervix (procedure) [code = 630875023] Future Scheduled 2022-01-23 TETANUS SHOT (ADULT) [employer] [facility] 14:14:09 [code = TETANUS SHOT of Medi cine (ADULT)] Future Scheduled 2021-11-26 Screening for [employer] [facility] 15:11:10 malignant neoplasm of of Med icine breast (procedure) [code = 257576701] Future Scheduled 2021-11-26 Human immunodeficiency [facility] [employer] [facility] 15:11:10 virus screening of Medicine (procedure) [code = 861448296] Future Scheduled 2021-11-26 Pneumococcal Combined [facility] [employer] [facility] 15:11:10 (2 - PPSV23 or PCV20) of Med icine [code = Pneumococcal Combined (2 - PPSV23 or PCV20)] Future Scheduled 2021-11-26 Screening for [employer] [employer] [facility] 15:11:10 malignant neoplasm of of Med icine colon (procedure) [code = 517619991] Future Scheduled 2021-11-26 COVID-19 Vaccine (3 - [...] of Med icine cervix (procedure) [code = 515140582] Future Scheduled 2021-11-26 TETANUS SHOT (ADULT) [employer] [facility] 15:11:10 [code = TETANUS SHOT of Medi cine (ADULT)] Future Scheduled 2021-11-23 STUDY TILT [code = 1 Occurrences [employer] [facility] 13:54:54 98813] starting of Medicine 11/23/2021 until 11/23/2022 Future Scheduled 2021-09-08 Screening for [employer] [employer] [facility] 14:45:55 malignant neoplasm of of Med icine breast (procedure) [code = 153530082] Future Scheduled 2021-09-08 BMI FOLLOW UP PLAN [employer] Test 14:45:55 [code = BMI FOLLOW UP of Med icine PLAN] Future Scheduled 2021-09-08 Human immunodeficiency B [facility] Test 14:45:55 virus screening of Medicine (procedure) [code = 508119250] Future Scheduled 2021-09-08 Pneumococcal Combined [facility] 14:45:55 (2 of 4 - PPSV23) of Medicin e [code = Pneumococcal Combined (2 of 4 - PPSV23)] Future Scheduled 2021-09-08 Screening for [facility] [employer] 14:45:55 malignant neoplasm of of Med icine colon (procedure) [code = 481614436] Future Scheduled 2021-09-08 COVID-19 Vaccine (3 - [facility] Test 14:45:55 Moderna risk 4-dose of Medic ine series) [code = COVID-19 Vaccine (3 - Moderna risk 4-dose series)] Future Scheduled 2021-09-08 Screening for [employer] [facility] 14:45:55 malignant neoplasm of of Med icine cervix (procedure) [code = 835680168] Future Scheduled 2021-09-08 TETANUS SHOT (ADULT) [facility] Test 14:45:55 [code = TETANUS SHOT of Medi cine (ADULT)] Future Scheduled 2021-09-08 2019 CORONOVIRUS Ordered: B [facility] Test 14:26:57 (COVID-19) ANTIBODY, 09/08/2021 of Medi cine IGG, (S) [code = NOCPT] Future Scheduled 2021-07-02 Screening for [employer] [facility] 05:39:12 malignant neoplasm of of Med icine breast (procedure) [code = 707047232] Future Scheduled 2021-07-02 BMI FOLLOW UP PLAN [employer] [facility] 05:39:12 [code = BMI FOLLOW UP of Med icine PLAN] Future Scheduled 2021-07-02 Human immunodeficiency B [facility] Test 05:39:12 virus screening of Medicine (procedure) [code = 148801624] Future Scheduled 2021-07-02 Pneumococcal Combined [employer] [facility] 05:39:12 (2 of 4 - PPSV23) of Medicin e [code = Pneumococcal Combined (2 of 4 - PPSV23)] Future Scheduled 2021-07-02 Screening for [facility] [employer] 05:39:12 malignant neoplasm of of Med icine colon (procedure) [code = 790343052] Future Scheduled 2021-07-02 Screening for [facility] [employer] 05:39:12 malignant neoplasm of of Med icine cervix (procedure) [code = 684524572] Future Scheduled 2021-07-02 TETANUS SHOT (ADULT) [employer] [facility] 05:39:12 [code = TETANUS SHOT of Medi cine (ADULT)] Future Scheduled 2021-06-27 [place] OCCUPATIONAL Ordered: [facility] [employer] [facility] 13:19:30 THERAPY EVAL LOW 06/27/2021 of Medicine COMPLEX 30 MINS [code = 33836] Future Scheduled 2021-06-27 [place] CANALITH Ordered: [facility] [employer] 13:19:30 REPOSITIONING 06/27/2021 of Medicine PROCEDURE, PER DAY [code = 39350] Future Scheduled 2021-06-27 Screening for [facility] [employer] [facility] 11:33:45 malignant neoplasm of of Med icine breast (procedure) [code = 907749983] Future Scheduled 2021-06-27 BMI FOLLOW UP PLAN [employer] [facility] 11:33:45 [code = BMI FOLLOW UP of Med icine PLAN] Future Scheduled 2021-06-27 Human immunodeficiency [facility] [employer] [facility] 11:33:45 virus screening of Medicine (procedure) [code = 800892726] Future Scheduled 2021-06-27 Pneumococcal Combined [employer] [facility] 11:33:45 (2 of 4 - PPSV23) of Medicin e [code = Pneumococcal Combined (2 of 4 - PPSV23)] Future Scheduled 2021-06-27 Screening for [facility] [employer] 11:33:45 malignant neoplasm of of Med icine colon (procedure) [code = 716745482] Future Scheduled 2021-06-27 Screening for [employer] [employer] [facility] 11:33:45 malignant neoplasm of of Med icine cervix (procedure) [code = 895936564] Future Scheduled 2021-06-27 TETANUS SHOT (ADULT) [employer] [facility] 11:33:45 [code = TETANUS SHOT of Medi cine (ADULT)] Future Scheduled 2021-05-03 Screening for [employer] [employer] [facility] 13:26:26 malignant neoplasm of of Med icine breast (procedure) [code = 184113093] Future Scheduled 2021-05-03 BMI FOLLOW UP PLAN [employer] Test 13:26:26 [code = BMI FOLLOW UP of Med icine PLAN] Future Scheduled 2021-05-03 Human immunodeficiency [facility] Test 13:26:26 virus screening of Medicine (procedure) [code = 837698432] Future Scheduled 2021-05-03 Screening for [facility] [employer] [facility] 13:26:26 malignant neoplasm of of Med icine colon (procedure) [code = 097044613] Future Scheduled 2021-05-03 Screening for [employer] [facility] 13:26:26 malignant neoplasm of of Med icine cervix (procedure) [code = 307213528] Future Scheduled 2021-05-03 TETANUS SHOT (ADULT) [employer] [facility] 13:26:26 [code = TETANUS SHOT of Medi cine (ADULT)] Future Scheduled 2021-05-03 CBC W/AUTO DIFF WITH Ordered: [employer] [facility] 11:50:49 PLATELETS [code = 05/03/2021 of Medicin e 73665-3] Future Scheduled 2021-05-03 COMPREHENSIVE Ordered: [facility] [employer] Test 11:50:49 METABOLIC PANEL [code 05/03/2021 of Med icine = 67887-8] Future Scheduled 2021-05-03 SEDIMENTATION RATE Ordered: [facility] Test 11:50:49 MODIFIED AREN 05/03/2021 of Medic ine [code = 4537-7] Future Scheduled 2021-05-03 C-REACTIVE PROTEIN Ordered: [facility] Test 11:50:49 [code = 1988-5] 05/03/2021 of Medicine Future Scheduled 2021-05-03 QUANTIFERON TB GOLD Ordered: [facility] Test 11:50:49 PLUS 4 TUBES [code = 05/03/2021 of Medi cine 30192-2] Future Scheduled 2021-03-08 Screening for [facility] [employer] [facility] 00:12:52 malignant neoplasm of of Med icine breast (procedure) [code = 425266416] Future Scheduled 2021-03-08 BMI FOLLOW UP PLAN [employer] [facility] 00:12:52 [code = BMI FOLLOW UP of Med icine PLAN] Future Scheduled 2021-03-08 Human immunodeficiency [employer] Test 00:12:52 virus screening of Medicine (procedure) [code = 627713538] Future Scheduled 2021-03-08 FLU VACCINE > 6 MONTHS [employer] [facility] 00:12:52 [code = FLU VACCINE > of Med icine 6 MONTHS] Future Scheduled 2021-03-08 Screening for [employer] [employer] [facility] 00:12:52 malignant neoplasm of of Med icine colon (procedure) [code = 322539165] Future Scheduled 2021-03-08 Screening for [facility] [employer] [facility] 00:12:52 malignant neoplasm of of Med icine cervix (procedure) [code = 511899727] Future Scheduled 2021-03-08 TETANUS SHOT (ADULT) [employer] [facility] 00:12:52 [code = TETANUS SHOT of Medi cine (ADULT)] Future Scheduled 2021-03-08 Screening for [facility] [employer] [facility] 00:12:52 malignant neoplasm of of Med icine breast (procedure) [code = 089035709] Future Scheduled 2021-03-08 BMI FOLLOW UP PLAN [employer] [facility] 00:12:52 [code = BMI FOLLOW UP of Med icine PLAN] Future Scheduled 2021-03-08 Human immunodeficiency [employer] Test 00:12:52 virus screening of Medicine (procedure) [code = 251581148] Future Scheduled 2021-03-08 FLU VACCINE > 6 MONTHS [employer] [facility] 00:12:52 [code = FLU VACCINE > of Med icine 6 MONTHS] Future Scheduled 2021-03-08 Screening for [employer] [facility] 00:12:52 malignant neoplasm of of Med icine colon (procedure) [code = 825589395] Future Scheduled 2021-03-08 Screening for [facility] [employer] [facility] 00:12:52 malignant neoplasm of of Med icine cervix (procedure) [code = 858790676] Future Scheduled 2021-03-08 TETANUS SHOT (ADULT) [employer] [facility] 00:12:52 [code = TETANUS SHOT of Medi cine (ADULT)] Future Scheduled 2020-12-02 CBC W/AUTO DIFF WITH Ordered: [employer] [facility] 11:55:43 PLATELETS [code = 12/02/2020 of Medicin e 95918-0] Future Scheduled 2020-12-02 COMPREHENSIVE Ordered: [facility] [employer] [facility] 11:55:43 METABOLIC PANEL [code 12/02/2020 of Med icine = 00930-1] Future Scheduled 2020-12-02 Screening for [facility] [employer] Test 11:34:58 malignant neoplasm of of Med icine breast (procedure) [code = 870502987] Future Scheduled 2020-12-02 BMI FOLLOW UP PLAN [employer] [facility] 11:34:58 [code = BMI FOLLOW UP of Med icine PLAN] Future Scheduled 2020-12-02 Human immunodeficiency [employer] [facility] 11:34:58 virus screening of Medicine (procedure) [code = 091935143] Future Scheduled 2020-12-02 FLU VACCINE > 6 MONTHS [employer] [facility] 11:34:58 [code = FLU VACCINE > of Med icine 6 MONTHS] Future Scheduled 2020-12-02 Screening for [facility] [employer] 11:34:58 malignant neoplasm of of Med icine colon (procedure) [code = 133376504] Future Scheduled 2020-12-02 Screening for [facility] [employer] 11:34:58 malignant neoplasm of of Med icine cervix (procedure) [code = 885688203] Future Scheduled 2020-12-02 TETANUS SHOT (ADULT) [employer] [facility] 11:34:58 [code = TETANUS SHOT of Medi cine (ADULT)] Future Scheduled 2020-11-14 Screening for [facility] [employer] 09:41:53 malignant neoplasm of of Med icine breast (procedure) [code = 928682484] Future Scheduled 2020-11-14 BMI FOLLOW UP PLAN [employer] Test 09:41:53 [code = BMI FOLLOW UP of Med icine PLAN] Future Scheduled 2020-11-14 Human immunodeficiency [employer] Test 09:41:53 virus screening of Medicine (procedure) [code = 565606032] Future Scheduled 2020-11-14 FLU VACCINE > 6 MONTHS [employer] [facility] 09:41:53 [code = FLU VACCINE > of Med icine 6 MONTHS] Future Scheduled 2020-11-14 Screening for [facility] [employer] [facility] 09:41:53 malignant neoplasm of of Med icine colon (procedure) [code = 154103859] Future Scheduled 2020-11-14 Screening for [facility] [employer] 09:41:53 malignant neoplasm of of Med icine cervix (procedure) [code = 227455301] Future Scheduled 2020-11-14 TETANUS SHOT (ADULT) [facility] Test 09:41:53 [code = TETANUS SHOT of Medi cine (ADULT)] Diagnostic Test 2019-04-13 [LH] GC/CT by Amp Det [facility] 00:00:00 (APTIMA) [code = [LH] GC/CT by Amp Det (APTIMA)] Diagnostic Test 2019-04-09 Colonoscopy [code = [facility] 00:00:00 [id number]] Diagnostic Test 2019-04-09 Colonoscopy [code = [facility] 00[facility]00:00 [id number]] Diagnostic Test 2019-04-09 Colonoscopy [code = [facility] 00:00:00 [id number]] Diagnostic Test 2019-04-08 MR [facility]er [facility] 00:[facility]:00 contrast 82799 [code = 93330] Diagnostic Test 2019-04-08 MR [facility]er [facility] 00:00:00 contrast 89855 [code = 59221] Diagnostic Test 2019-03-30 Colonoscopy [[facility] 00:00:00 [id number]] Diagnostic Test 2019-03-30 Colonoscopy [code = [facility] 00:00:00 [id number]] Diagnostic Test 2019-03-30 Colonoscopy [code = [facility] 00:00:00 [id number]] Diagnostic Test 2019-03-30 Colonoscopy [code = [facility] 00:00:00 [id number]] Diagnostic Test 2019-01-14 Complete PFTs w[facility]CO [facility] 00:00:00 and Lung Volumes [code = Complete PFTs w/DLCO and Lung Volumes] Diagnostic Test 2019-01-14 [facility] Sleep Lab - Sleep [facility]ending 00:00:00 Study Split Night [code = [facility] Sleep Lab - Sleep Study Split Night] Diagnostic Test 2019-01-14 [N] 2D Echo complete, [facility] 00:00:00 with Doppler 60080 [code = [N] 2D Echo complete, with Doppler 44540] Diagnostic Test 2019-01-14 [facility] Sleep Lab - Sleep [facility] 00:00:00 Study Split Night [code = [facility] Sleep Lab - Sleep Study Split Night] Diagnostic Test 2019-01-14 Complete PFTs w[facility]CO [facility] 00:00:00 and Lung Volumes [code = Complete PFTs w/DLCO and Lung Volumes] Diagnostic Test 2019-01-14 [facility] Sleep Lab - Sleep [facility] 00:00:00 Study Split Night [code = [facility] Sleep Lab - Sleep Study Split Night] Diagnostic Test 2019-01-14 [N] 2D Echo complete, [facility] 00:00:00 with Doppler 66115 [code = [N] 2D Echo complete, with Doppler 48772] Future Scheduled [address] [facility] 00:[facility]:00 [facility]procedure) [code = 384011860] Future Scheduled [address] [facility] Test 00:00:00 [facility] cerv[facility] (procedure) [code = 521434753] Future Scheduled [address] [facility] Test 00:00:00 malignant neoplasm [facility] cervix (procedure) [code = 489468430] Future Scheduled 1998 HE[facility]ITIS [facility] Test 00:00:00 [code = HEPATITIS C Medical Center SCREENING] Future Scheduled 1998 [facility]ITIS [facility] 00:00:00 [code = HEPATITIS C Medical Center SCREENING] Future Scheduled 1998 [facility] 00:00:00 [code = HEPATITIS C Medical Center SCREENING] Future Scheduled C-REACTIVE PROTEIN Ordered: [employer] Test [code = 1988-5] 05/12/2020 of Medicine Future Scheduled SEDIMENTATION RATE Ordered: [employer] [facility] MODIFIED WESTERGREN 05/12/2020 of Medic ine [code = 4537-7] Future Scheduled HLA-B27 ANTIGEN [code Ordered: [facility] [employer] [facility] = 09363] 05/12/2020 of Medicine Future Scheduled HEPATITIS B SURFACE AB Ordered: [facility] [employer] [facility] QUANT [code = 53864-0] 05/12/2020 of Pa dicine Future Scheduled HEPATITIS B SURFACE Ordered: [facility] Test ANTIGEN [code = 05/12/2020 of Medicine 5196-1] Future Scheduled HEPATITIS B CORE AB Ordered: [employer] [facility] TOTAL W/REFL IGM [code 05/12/2020 of Me dicine = 85334-4] Future Scheduled HEPATITIS C ANTIBODY Ordered: [employer] [facility] [code = 07949-1] 05/12/2020 of Medicine Future Scheduled QUANTIFERON TB GOLD Ordered: [employer] [facility] PLUS 4 TUBES [code = 05/12/2020 of Medi cine 18079-6] Future Scheduled BMI FOLLOW UP PLAN [employer] [facility] [code = BMI FOLLOW UP of Med icine PLAN] Future Scheduled HEPATITIS C SCREENING [employer] [facility] [code = HEPATITIS C of Medic ine SCREENING] Future Scheduled HIV SCREENING [code = [employer] [facility] HIV SCREENING] of Medicine Future Scheduled CERVICAL CANCER [facility] Test SCREENING 3 YEAR of Medicine FOLLOW UP [code = CERVICAL CANCER SCREENING 3 YEAR FOLLOW UP] Future Scheduled COLON CANCER [facility] SCREENING: COLONOSCOPY of dicine [code = COLON CANCER SCREENING: COLONOSCOPY] Future Scheduled TETANUS SHOT (ADULT) [employer] Test [code = TETANUS SHOT of Medi cine (ADULT)] Future Scheduled C3 COMPLEMENT [code = Ordered: [employer] [facility] 4485-9] 05/12/2020 of Medicine Future Scheduled C4 COMPLEMENT [code = Ordered: [employer] [facility] 4498-2] 05/12/2020 of Medicine Future Scheduled CBC W/AUTO DIFF WITH Ordered: [employer] [facility] PLATELETS [code = 05/12/2020 of Medicin e 75731-5] Future Scheduled COMPREHENSIVE Ordered: [facility] METABOLIC PANEL [code 05/12/2020 of Med icine = 62105-5] Future Scheduled TRYPTASE [code = Ordered: [facility] [employer] [facility] 11784] 05/12/2020 of Medicine Future Scheduled TSH [code = 03010-4] Ordered: [employer] [facility] 05/12/2020 of Medicine Future Scheduled BMI FOLLOW UP PLAN [employer] Test [code = BMI FOLLOW UP of Med icine PLAN] Future Scheduled HEPATITIS C SCREENING [employer] Test [code = HEPATITIS C of Medic ine SCREENING] Future Scheduled HIV SCREENING [code = [employer] [facility] HIV SCREENING] of Medicine Future Scheduled CERVICAL CANCER [facility] SCREENING 3 YEAR of Medicine FOLLOW UP [code = CERVICAL CANCER SCREENING 3 YEAR FOLLOW UP] Future Scheduled COLON CANCER [facility] Test SCREENING: COLONOSCOPY of Me dicine [code = COLON CANCER SCREENING: COLONOSCOPY] Future Scheduled TETANUS SHOT (ADULT) [employer] Test [code = TETANUS SHOT of Medi cine (ADULT)] Future Scheduled MAMMOGRAM ANNUAL [code [facility] Test = MAMMOGRAM ANNUAL] of Medic ine Future Scheduled BMI FOLLOW UP PLAN [employer] [facility] [code = BMI FOLLOW UP of Med icine PLAN] Future Scheduled HEPATITIS C SCREENING [employer] [employer] [facility] [code = HEPATITIS C of Medic ine SCREENING] Future Scheduled HIV SCREENING [code = [employer] [facility] HIV SCREENING] of Medicine Future Scheduled CERVICAL CANCER [facility] Test SCREENING 3 YEAR of Medicine FOLLOW UP [code = CERVICAL CANCER SCREENING 3 YEAR FOLLOW UP] Future Scheduled COLON CANCER [facility] Test SCREENING: COLONOSCOPY of Me dicine [code = COLON CANCER SCREENING: COLONOSCOPY] Future Scheduled TETANUS SHOT (ADULT) [employer] Test [code = TETANUS SHOT of Medi cine (ADULT)] Future Scheduled MRI SACRUM WO CONTRAST 1 Occurrences [facility] Test [code = 74115] starting of Medicine 05/12/2020 until 05/12/2021 Encounters Start End Encounter Admission Attending Care Care Encounter Source Date/Time Date/Time Type Type Clinicians Facility Department ID 2021-12-21 Outpatient WILDER MCCOY Surgery [id number] [facility] 11:10:36 [facility] 2021-11-15 Outpatient ANDI GONZALEZ [facility] Surgery [id number] [facility] 13:45:13 [facility] 2021-11-15 Outpatient ANDI GONZALEZ [facility] Surgery [id number] [facility] 13:26:29 [facility] 2021-09-15 [facility] [id number] [facility] 08:29:40 [facility] 2021-08-17 [facility] [id number] [facility] 11:05:11 [facility] 2021-03-31 Outpatient TOPHER [facility] Surgery [id number] [facility] 23:55:24 [facility] 2021-03-31 Outpatient TOPHER [facility] Surgery [id number] [facility] 23:55:19 [facility] 2021-03-29 Outpatient KALINA [facility] Surgery [id number] [facility] 03:49:02 DAVID 2021-03-29 Outpatient KALINA [facility] Surgery [id number] [facility] 03:04:33 DAVID 2020-11-14 Outpatient DOTTY, [facility] [id number] [place] 16:18:38 [facility] 2020-10-29 Outpatient DOTTY, [facility] [id number] [place] 02:42:50 [facility] 2019-10-23 Outpatient NELSON, [facility] [id number] [facility] 07:24:40 ELOISE 2022-07-20 2022-07-20 Outpatient DENNIS Steve [facility] [id number] [place] [address] 12:51:39 13:14:04 [facility] 2022-07-18 2022-07-19 Outpatient MARK SCHAEFFER [facility] [id number] [facility] 11:41:32 13:55:04 [facility] 2022-07-19 2022-07-19 [facility] [id number] [facility] 11:40:00 12:00:00 Visit [facility] [id number] ity [facility] [id number] [facility] AT [phone] [address] 2022-07-19 2022-07-19 [id number] [facility] 11:40:00 11:40:[address] [facility] 2022-07-07 2022-07-15 [facility]patient [facility] [id number] [facility] 21:57:00 15:03:00 MARLENY 2022-07-07 2022-07-15 [facility] [id number] 21:57:00 15:03:00 [facility] 2022-07-15 2022-07-[address] [facility] [id number] 00:00:00 00:00:00 Only Amanda [facility] 2022-07-12 2022-07-12 Outpatient MICHELLE ROSARIO [facility] [id number] [facility] 00:00:00 00:00:00 TRACIE [facility] 2022-07-10 2022-07-[address] Smith-Eng [facility] [id number] [facility] 17:17:00 17:17:00 Event Arin velazquez [facility] 2022-07-10 2022-07-10 Surgery Virtual, [facility] [id number] 12:35:00 12:54:00 Surgeon [facility] 2022-07-06 2022-07-06 Emergency ER SURERVIN, [facility] Emergency [id number] SLE 11:06:00 14:27:00 ALLYSON 2022-07-06 2022-07-06 Emergency Surles, [facility] [id number] 11:06:00 14:27:00 [facility] 2022-07-06 2022-07-06 Outpatient GWYN [facility] [id number] [facility] 10:18:07 10:18:07 [facility] 2022-07-06 2022-07-06 Travel [facility] [id number] [facility] 00:00:00 00:00:00 [facility] 2022-07-06 2022-07-06 Travel [facility] [id number] [facility] 00:00:00 00:00:00 [facility] 2022-07-05 2022-07-05 Outpatient GRACE [facility] [id number] [facility] 13:49:31 13:55:53 [place] [facility] 2022-07-05 2022-07-05 Outpatient RANJITHAURELIAV [facility] [id number] [facility] 10:16:37 12:36:35 [facility] 2022-07-04 2022-07-04 [facility] 1.2.840.114 [id number] Univers 15:27:43 23:59:00 Encounter Joseluis WHITE 350.1.13.10 josé miguel [facility] 4.2.7.2.686 [facility] [id number] [facility] [address] 2022-07-04 2022-07-04 Outpatient Jonathan HORVATH [facility] [id number] Univers 14:31:58 15:26:00 KERRY valdez [facility] 2022-07-04 2022-07-04 Hospital [facility] 1.2.840.114 [id number] Univers 14:15:00 15:26:00 Encounter Kerry WHITE 350.1.13.10 ity of RADHA 4.2.7.2.686 [facility] [id number] [address] 2022-07-03 2022-07-03 Outpatient [facility] [id number] [facility] 10:46:32 14:12:19 [facility] 2022-07-03 2022-07-03 Outpatient CLEMENTE [facility] [id number] [facility] 09:08:44 11:18:15 THOMAS murphye of Medicin e 2022-07-02 2022-07-02 Outpatient R DANN [facility] [id number] Univers 13:00:00 13:00:00 JHOANA valdez [facility] 2022-06-29 2022-06-29 [facility] [id number] Univers 13:47:53 23:59:00 KERRY valdez [facility] 2022-06-29 2022-06-29 [facility] 1.2.840.114 [id number] Univers 13:47:53 23:59:00 Encounter Kerry WHITE 350.1.13.10 ity of [place] 4.2.7.2.686 [facility] [id number] [address] 2022-06-29 2022-06-29 Office [facility] 1.2.377.709 [id number] Univers 09:30:00 10:00:00 Visit Kerry FLORES 350.1.13.10 it y of CLEAR 4.2.7.2.686 Surgery [facility] [id number] [address] OFFICE BUILDING 2022-06-28 2022-06-28 Outpatient TORIE DONOHUE [facility] [id number] [facility] 16:45:03 16:49:48 [facility] 2022-06-28 2022-06-28 Outpatient Jonathan ABBASI [facility] [id number] Univers 12:00:00 12:00:00 ATTENDING ity [facility] 2022-06-22 2022-06-22 Outpatient Jonathan GALLEGOS [facility] [id number] Univers 15:50:00 15:50:00 SYDNIE ity [facility] 2022-06-21 2022-06-21 Outpatient BHARATDarleneHUI BC BCM [id number] [facility] 15:13:56 15:34:24 , PERCY caballero of Medicin e 2022-06-20 2022-06-21 Inpatient [facility] Surgery [id number] [facility] 05:43:00 15:01:00 JOSE ANTONIO RAINEY 2022-06-20 2022-06-21 [facility] [id number] 05:43:00 15:01:00 Encounter Jose Antonio rainey [facility] 2022-06-20 2022-06-21 [facility] [id number] [id number] 05:43:00 15:01:00 Encounter Jose Antonio rainey [facility] 2022-06-20 2022-06-20 Outpatient [facility] [id number] [facility] 05:43:00 23:59:00 Arcelia caballero [facility] Medicin e 2022-06-20 2022-06-20 Anesthesia Kerrie, [facility] [id number] 10:49:00 12:26:00 Event Alejandro [facility] 2022-06-20 2022-06-20 Anesthesia [facility] [id number] 10:49:00 12:26:00 Event Alejandro [facility] 2022-06-20 2022-06-20 Surgery [facility] [id number] 10:10:00 12:10:00 Jose Antonio rainey [facility] 2022-06-20 2022-06-20 [facility] [id number] 10:10:00 12:10:00 Jose Antonio rainey [facility] 2022-06-20 2022-06-20 Travel [facility] [id number] [facility] 00:00:00 00:00:00 [facility] 2022-06-20 2022-06-20 Travel [facility] [id number] [facility] 00:00:00 00:00:00 [facility] 2022-06-19 2022-06-19 Outpatient Jonathan DUNN [facility] [id number] Univers 13:14:16 23:59:00 LEELA valdez [facility] 2022-06-19 2022-06-19 [facility] 1.2.840.114 [id number] Univers 13:14:16 23:59:00 Encounter Leela WHITE 350.1.13.10 ity [facility] 4.2.7.2.686 [facility] [id number] [address] 2022-06-19 2022-06-19 Outpatient [facility] [id number] [facility] 00:00:00 23:59:00 [facility]in [facility] 2022-06-19 2022-06-19 Emergency ER [facility] Emergency [id number] [facility] 18:33:00 20:49:00 , [facility] 2022-06-19 2022-06-19 Emergency [facility] [id number] 18:33:00 20:49:00 , [facility] 2022-06-19 2022-06-19 Emergency [facility] [id number] 18:33:00 20:49:00 , [facility] 2022-06-19 2022-06-19 Outpatient TONY, [facility] [id number] [facility] 13:07:41 14:06:37 [facility] 2022-06-19 2022-06-19 Telephone [facility] 1.2.840.114 [id number] Univers 00:00:00 00:00:00 Sydnie ZAPATA 350.1.13.10 it y of [facility] 4.2.7.2.686 [place] [id number] Me dical [address] 2022-06-19 2022-06-[address] [facility] [id number] 00:00:00 00:00:00 Only [facility] 2022-06-19 2022-06-19 Travel [facility] [id number] [facility] 00:00:00 00:00:00 [facility] 2022-06-19 2022-06-[address] [facility] [id number] 00:00:00 00:00:00 Only [facility] 2022-06-19 2022-06-19 Travel [facility] [id number] [facility] 00:00:00 00:00:00 [facility] 2022-06-18 2022-06-18 Telephone [facility] 1.2.296.034 [id number] [facility] 00:00:00 00:00:00 [facility] 350.1.13.10 it y of [place] 4.2.7.2.686 Tim as SILVER?BLEA [id number] Me dical KNJOHN [address] MEDICAL OFFICE BUILDING 2022-06-18 2022-06-18 Nurse ZIYAD Mendenhall 1.2.840.114 [id number] Univers 00:00:00 00:00:00 Triage Axel Mahajan TI 350.1.13.10 ity of HOSPITAL 4.2.7.2.686 Tim as [id number] [address] 2022-06-15 2022-06-15 Hospital [facility] 1.2.840.114 [id number] Univers 15:50:58 23:59:00 Encounter Sydnie PRIMARY 350.1.13.10 ity of [place]2.[place].2.[place] [id number] Me dical [address] 2022-06-15 2022-06-15 Outpatient R [facility] [id number] Univers 16:00:00 17:05:05 SYDNIE ity of [facility] 2022-06-15 2022-06-15 Office [facility] 1.2.897.030 [id number] [facility] 16:00:00 17:05:05 [facility] 350.1.13.10 it y of CARE 4.2.7.2.686 Timmariela gardner RACHAEL [id number] Pa dicrosales [address] 2022-06-14 2022-06-14 Outpatient [facility] SLE [id number] SLE 12:55:31 23:59:00 JOSE ANTONIO RAINEY 2022-06-14 2022-06-14 [facility] [id number] [id number] 12:30:00 23:59:00 Encounter Jose Antonio rainey [facility] 2022-06-14 2022-06-14 [facility] [id number] [id number] 12:30:00 23:59:00 Encounter Jose Antonio rainey [facility] 2022-06-14 2022-06-14 Outpatient [facility] [id number] SLEH 12:54:40 12:54:40 2022-06-14 2022-06-14 Telephone [facility] 1.2.585.825 [id number] Univers 00:00:00 00:00:[address] [facility] 350.1.13.10 it y of [place] 4.2.7.2.686 Tim as SILVER?BLEA [id number] Pa ken [address] MEDICAL OFFICE BUILDING 2022-06-14 2022-06-14 Orders Doctor ZIYAD 1.2.840.114 [id number] Univers 00:00:00 00:00:00 Only Unassigned, TI 350.1.13.10 ity of [place] [facility] 4.2.7.2.686 Tim as [id number] [facility] [address] 2022-06-13 2022-06-13 Outpatient MICHELLE VAZQUEZ [id number] [facility] 14:02:40 15:56:43 HAYLEY caballero of Medicin ada 2022-06-13 2022-06-13 Outpatient SLE SLE [id number] SLE 00:00:00 00:00:00 2022-06-12 2022-06-12 Outpatient EL [facility] [id number] [facility] 12:40:38 23:59:00 2022-06-12 2022-06-12 [facility] [id number] 12:40:38 23:59:00 Encounter [facility] 2022-06-12 2022-06-12 [facility] [id number] 12:40:38 23:59:00 Encounter [facility] 2022-06-12 2022-06-12 Outpatient EL SLEH [facility] [id number] [facility] 00:00:00 00:00:00 2022-06-11 2022-06-11 Outpatient Jonathan DUNN [facility] [id number] Univers 13:00:00 15:24:[address] [facility] 2022-06-11 2022-06-11 Office Mona [facility] 1.2.840.114 [id number] Univers 13:00:00 15:24:33 Visit Gamersband 350.1.13.10 it y of [place] 4.2.7.2.686 Tim as SILVER?BLEA [id number] [address] MEDICAL OFFICE [facility] 2022-06-07 2022-06-07 Outpatient COFFEY-ALEAH [facility] [id number] [facility] 14:20:48 14:20:48 JOSE ANTONIO RAINEYe of Medicin e 2022-06-07 2022-06-07 Outpatient RANJITH, [facility]ISH [facility] [id number] [facility] 10:33:34 13:37:25 Colleg [facility] Medicin e 2022-06-07 2022-06-07 Outpatient ABRAHAM, [facility] [id number] [facility] 09:51:13 09:58:38 TRACIE [facility] 2022-06-06 2022-06-06 Outpatient R GWYN [facility] [id number] Univers 07:30:00 23:59:00 ANGELES valdez o f [facility] 2022-06-06 2022-06-06 [facility] 1.2.840.114 [id number] Univers 07:30:00 23:59:00 Encounter [facility] 350.1.13.10 itmyla koenig [place] 4.2.7.2.686 Alfonso SANDOVAL [id number] [place] [address] [address] OFFICE BUILDING 2022-06-04 2022-06-04 Outpatient Jonathan MONA [facility] [id number] Univers 13:00:00 13:00:00 LEELA ity [facility] 2022-05-31 2022-05-31 Outpatient PARISH FAM [facility] [id number] [facility] 10:05:58 10:05:58 Colleg e [facility] Medicin e 2022-05-30 2022-05-30 Outpatient LAURY MARK [facility] 101 [id number] [facility] 13:52:35 13:52:35 Colleg e [facility] Medicin e 2022-05-25 2022-05-25 Outpatient MEG [facility] [id number] [facility] 12:47:54 13:07:42 , PERCY [facility] 2022-05-25 2022-05-25 Outpatient MEG [facility] [id number] [facility] 00:00:00 00:00:00 , PERCY [facility] 2022-05-22 2022-05-22 Outpatient LIZBETH [facility] [id number] [facility] 09:12:51 09:30:39 JOSE ANTONIO RAINEY lege of Medicin e 2022-05-09 2022-05-10 Outpatient ANGEL [facility] [id number] [facility] 12:46:30 09:37:55 JASS Deangelo ege of Medicin e 2022-05-09 2022-05-[address] [facility] [id number] 15:00:00 15:30:00 [facility] 2022-05-09 2022-05-[address] [facility] [id number] 15:00:00 15:30:00 [facility] 2022-05-09 2022-05-09 Outpatient ANDI PASCAL [facility] Surgery [id number] [address] [place] [address] 14:49:00 15:20:00 [facility] 2022-05-09 2022-05-09 [facility] [id number] 14:49:00 15:20:00 Encounter [facility] 2022-05-09 2022-05-09 [facility] [id number] 14:49:00 15:20:00 Encounter [facility] 2022-05-07 2022-05-08 Outpatient PASCAL, [facility] [id number] [facility] 12:51:13 12:54:08 [facility] 2022-05-07 2022-05-08 Outpatient PASCAL, [facility] [id number] [facility] 12:48:58 12:51:03 [facility] 2022-05-07 2022-05-07 Outpatient [facility] [id number] [facility] 11:29:00 23:59:00 Colleg e of Medicin e 2022-05-07 2022-05-07 Outpatient [facility] Surgery [id number] [facility] 11:29:00 16:44:00 [facility] 2022-05-07 2022-05-07 [facility] [id number] 11:29:00 16:44:00 Encounter [facility] 2022-05-07 2022-05-07 [facility] [id number] 11:29:00 16:44:00 Encounter [facility] 2022-05-07 2022-05-07 [id number] 14:52:00 15:33:00 Event [facility] 2022-05-07 2022-05-[address] [facility] [id number] 14:52:00 15:33:00 Event [facility] 2022-05-07 2022-05-07 Surgery [facility] [id number] 12:30:00 13:30:00 [facility] 2022-05-07 2022-05-07 [facility] [id number] 12:30:00 13:30:00 [facility] 2022-05-07 2022-05-07 Travel [facility] [id number] [facility] 00:00:00 00:00:00 [facility] 2022-05-07 2022-05-07 Travel [facility] [id number] [facility] 00:00:00 00:00:00 [facility] 2022-05-03 2022-05-03 Outpatient LIZBETH [facility] [id number] [facility] 11:29:56 11:54:32 JOSE ANTONIO RAINEY of Medicin e 2022-05-02 2022-05-02 Outpatient [facility] [id number] [facility] 12:26:15 23:59:00 2022-05-02 2022-05-02 [facility] [id number] 11:50:00 23:59:00 Encounter [facility] 2022-05-02 2022-05-02 [facility] [id number] 11:50:00 23:59:00 Encounter [facility] 2022-05-02 2022-05-02 Travel [facility] [id number] [facility] 00:00:00 00:00:00 [facility] 2022-05-02 2022-05-02 Travel [facility] [id number] [facility] 00:00:00 00:00:00 [facility] 2022-05-01 2022-05-01 Outpatient PARISH FAM [facility] [id number] [facility] 14:27:52 15:27:22 Arcelia caballero of Medicin e 2022-04-30 2022-04-30 Office MICHELLE CASTILLO 1.2.840.114 [id number] [facility] 09:04:45 10:18:53 Visit [facility] AMBULATOR 350.1.13.21 College Y 0.2.7.2.686 of [id number] Medi mari 800 e 2022-04-24 2022-04-24 Office EDMUND MINGO [facility] 1.2.840.114 [id number] [facility] 13:03:24 13:58:01 Visit AMBULATOR 350.1.13.21 College Y 0.2.7.2.686 of [id number] Medi mari 800 e 2022-04-19 2022-04-19 Outpatient HUDSON [facility] [id number] [facility] 11:42:46 11:52:01 Elsi KEARNS of Medicin e 2022-04-09 2022-04-09 Office BUCK AMAYA 1.2.840.114 [id number] [facility] 08:58:00 10:58:40 Visit SAAD AMBULATOR 350.1.13.21 College Y 0.2.7.2.686 of [id number] [facility] mari 600 e 2022-04-09 2022-04-09 Outpatient [facility] [id number] [facility] 09:53:39 09:53:39 Arcelia caballero of Medicin e 2022-04-09 2022-04-09 Telephone Terrance [facility] 1.2.840.114 [id number] Univers 00:00:00 00:00:00 [facility] 350.1.13.10 it[facility] 4.2.7.2.686 Tim as SILVER?BLEA [id number] [address] OFFICE [facility] 2022-04-09 2022-04-09 Telephone Terrance [facility] 1.2.840.114 [id number] Univers 00:00:00 00:00:00 [facility] 350.1.13.10 ity [facility] 4.2.7.2.686 Tim as SILVER?BLEA [id number] [address] OFFICE [facility] 2022-04-05 2022-04-05 Office Meg [facility] 1.2.840.114 [id number] [facility] 14:30:00 16:17:05 Visit , Percy Lawrence AMBULATOR 350.1.13.21 College Y 0.2.7.2.686 of [id number] [facility] mari 800 e 2022-04-03 2022-04-03 Outpatient R OJ LIN [facility] [id number] Univers 13:40:00 16:19:29 OJ LIN itmyla [facility] 2022-04-03 2022-04-03 [facility] 1.2.840.114 [id number] Univers 13:40:00 16:19:29 Visit [facility] 350.1.13.10 ity of [place] 4.2.7.2.686 Tim as SILVER?BLEA [id number] [address] OFFICE [facility] 2022-04-03 2022-04-03 Orders Doctor ZIYAD 1.2.840.114 [id number] Univers 00:00:00 00:00:00 Only Unassigned, TI 350.1.13.10 ity of [place] [facility] 4.2.7.2.686 Tim as [id number] [address] 2022-04-03 2022-04-03 [facility] 1.2.840.114 [id number] Univers 00:00:00 00:00:00 [facility] 350.1.13.10 ity of [place] 4.2.7.2.686 Tim as SILVER?BLEA [id number] [address] OFFICE [facility] 2022-04-02 2022-04-02 Outpatient HEMMATI, [facility] [id number] [facility] 10:33:56 11:55:50 LYNDON caballero of Medicin e 2022-03-30 2022-03-30 Outpatient TIGRE, [facility] [id number] [facility] 08:00:27 10:43:29 LEONORA caballero of Medicin e 2022-03-29 2022-03-29 Office BUCK Byrd 1.2.840.114 [id number] [facility] 14:30:00 15:30:00 Visit Shelly AMBULATOR 350.1.13.21 College Y 0.2.7.2.686 of [id number] [facility] mari 810 e 2022-03-23 2022-03-23 Emergency Iruke, 1.2.840.1 [id number] Methodi 00:11:00 02:04:00 Ricci 41276.1.1 850 s t [place] 3.430.2.7 Hospit a .3.100312 l .8 2022-03-23 2022-03-23 Emergency Iruke, 1.2.840.1 [id number] Methodi 00:11:00 02:04:00 Ricci 99361.1.1 850 s t [place] 3.430.2.7 Hospit a .3.544016 l .8 2022-03-23 2022-03-23 Travel 1.2.840.1 1.2.638.898 [id number] Methodi 00:00:00 00:00:[address] 3.430.2.7 0.2.7.3.698 Ho spita .3.633810 084.8 l .8 2022-03-23 2022-03-23 Travel 1.2.840.1 1.2.894.866 2637 [id number] Methodi 00:00:00 00:00:[address] 3.430.2.7 0.2.7.3.698 Ho spita .3.823578 084.8 l .8 2022-03-21 2022-03-21 Outpatient MEG [facility] [id number] [facility] 10:16:48 11:36:56 , PERCY caballero of Medicin e 2022-03-20 2022-03-20 Outpatient TORIE DONOHUE [facility] [id number] [facility] 17:12:41 17:27:53 Arcelia caballero of Medicin e 2022-03-19 2022-03-19 Outpatient OJ HUERTA [facility] [id number] [facility] 08:40:00 08:40:00 OJ LIN myla [facility] 2022-03-14 2022-03-17 Inpatient ER [facility] Emergency [id number] [facility] 17:46:00 19:00:00 [facility] 2022-03-14 2022-03-17 Hospital ER Allyson Mena [facility] [id number] 17:46:00 19:00:00 Encounter Yuli Robles Najamus M [facility] 2022-03-14 2022-03-17 [facility] Allyson Mena [facility] [id number] 17:46:00 19:00:00 Encounter Yuli Robles PingDonny rivera [facility] 2022-03-16 2022-03-16 Outpatient [facility] [id number] [facility] 00:00:00 23:59:00 Colleg e of Medicin e 2022-03-16 2022-03-[address] [facility] [id number] 00:00:00 00:00:00 Only [facility] 2022-03-16 2022-03-[address] [facility] [id number] 00:00:00 00:00:00 Only [facility] 2022-03-15 2022-03-15 Travel [facility] [id number] [facility] 00:00:00 00:00:00 [facility] 2022-03-15 2022-03-15 Travel [facility] [id number] [facility] 00:00:00 00:00:00 [facility] 2022-03-14 2022-03-14 Outpatient [facility] [id number] [facility] 00[facility]00:00 00:00:00 [facility] 2022-03-14 2022-03-14 Outpatient [facility] [id number] [facility] 00:00:00 00:00:00 [facility] 2022-03-12 2022-03-12 Office MICHELLE SMITH 1.2.840.114 [id number] [facility] 13:33:41 15:23:00 Visit LEONORA AMBULATOR 350.1.13.21 College Y 0.2.7.2.686 of [id number] [facility] mari 800 e 2022-03-09 2022-03-09 Orders Doctor ZIYAD 1.2.840.114 [id number] [employer] 00:00:00 00:00:00 Only Unassigned, TI 350.1.13.10 ity of [place] [facility] 4.2.7.2.686 Tim as [id number] [facility] [address] 2022-03-08 2022-03-08 Outpatient EL [facility] [id number] [facility] 14:21:01 23:59:00 2022-03-08 2022-03-08 [facility] [id number] 13:00:00 23:59:00 Encounter [facility] 2022-03-08 2022-03-08 [facility] [id number] 13:00:00 23:59:00 Encounter [facility] 2022-03-07 2022-03-07 Emergency ER [facility] Emergency [id number] SLE 16:56:00 20:33:00 [facility] 2022-03-07 2022-03-07 Emergency ER [facility] [id number] 16:56:00 20:33:00 [facility] 2022-03-07 2022-03-07 Emergency [facility] [id number] 16:56:00 20:33:00 [facility] 2022-03-07 2022-03-07 Office Brandt Alvarado 1.2.840.114 [id number] [facility] 12:00:00 12:30:00 Visit Anshulan AMBULATOR 350.1.13.21 College Y 0.2.7.2.686 of [id number] [facility] mari 370 e 2022-03-07 2022-03-07 Travel [facility] [id number] [facility] 00:[facility]00 00:00:00 [facility] 2022-03-07 2022-03-07 Travel [facility] [id number] [facility] 00:[facility]:00 00:00:00 [facility] 2022-03-06 2022-03-06 Office [facility] 1.2.840.114 [id number] [facility] 13:55:11 15:12:48 Visit PERCY AMBULATOR 350.1.13.21 College Y 0.2.7.2.686 of [id number] Medi mari 800 e 2022-02-28 2022-02-28 Outpatient BURKEERASMO [facility] [id number] [facility] 11:04:13 11:30:07 SHELLY Bartong e of Medicin e 2022-02-27 2022-02-27 Outpatient EVANGELIST [facility] [id number] [facility] 12:41:18 13:30:31 JOE mendoza of Medicin e 2022-02-21 2022-02-21 Office BRANDT [facility]VAR[facility]O [facility] 1.2.840.114 [id number] [facility] 11:42:10 14:47:58 Visit AMBULATOR 350.1.13.21 College Y 0.2.7.2.686 of [id number] Medi mari 370 e 2022-02-21 2022-02-21 Outpatient BRUNO [facility] [id number] [facility] [place] 12:59:20 13:56:55 ANEL [employer] 2022-02-21 2022-02-21 Outpatient [facility] [id number] [facility] [place] 10:48:56 11:53:58 [employer] 2022-02-12 2022-02-12 Outpatient GRACE [facility] [id number] [facility] [place] 14:28:30 14:53:23 [place] [employer] 2022-02-08 2022-02-08 Outpatient JIGNESH [facility] [id number] [facility] [place] 11:10:52 11:23:14 BRANDT caballero of Medicin e 2022-02-06 2022-02-06 Outpatient MEG [facility] [id number] [facility] [place] 15:50:32 16:56:47 PERCY e of Medicin e 2022-01-24 2022-01-24 Office BUCK YOUNG 1.2.840.114 [id number] [facility] [place] 11:04:24 15:42:18 Visit NEREIDA AMBULATOR 350.1.13.21 College Y 0.2.7.2.686 of [id number] Medi mari 800 e 2022-01-23 2022-01-23 Office BUCK BYRD 1.2.840.114 [id number] [facility] [place] 08:51:35 10:59:10 Visit SHELLY AMBULATOR 350.1.13.21 College Y 0.2.7.2.686 of [id number] Medi mari 810 e 2022-01-22 2022-01-22 Office Tigre [facility] 1.2.840.114 [id number] [facility] [place] 16:30:00 17:00:00 Visit Leonora AMBULATOR 350.1.13.21 College Bhavana Y 0.2.7.2.686 of [id number] [facility] mari 800 e 2022-01-18 2022-01-18 [id number] [facility] 13:51:29 23:59:00 [place] 2022-01-18 2022-01-18 [facility] [id number] 13:00:00 23:59:00 Encounter [facility] 2022-01-18 2022-01-18 [facility] [id number] 13:00:00 23:59:00 Encounter [facility] 2022-01-15 2022-01-15 [facility] [id number] [facility] 10:39:36 23:59:00 JOSE ANTONIO RAINEY 2022-01-15 2022-01-15 [facility] [id number] 10:39:36 23:59:00 Encounter Jose Antonio rainey [facility] 2022-01-15 2022-01-15 [facility] [id number] 10:39:36 23:59:00 Encounter Jose Antonio rainey [facility] 2022-01-13 2022-01-13 Outpatient TAWBI, [facility] [id number] [facility] [place] 12:47:24 13:32:31 MITA [employer] 2022-01-09 2022-01-09 Outpatient MEG [facility] [id number] [facility] [place] 14:59:11 15:35:42 , PERCY [employer] 2021-12-29 2021-12-29 Outpatient ANDI PIERCE [facility] [id number] SLE 00:00:00 00:00:00 ABDOULAYE 2021-12-28 2021-12-28 Outpatient VASHTI [facility] [id number] [facility] [place] 14:49:51 15:00:04 RAS Colle ge of Medicin e 2021-12-26 2021-12-26 Outpatient KEL, [facility] [id number] [facility] [place] 15:41:39 15:50:12 DIPABEN [employer] 2021-12-26 2021-12-26 Outpatient ANDI FRANCES [facility] [id number] SLE 00:00:00 00:00:00 BRIGID JOSE ANTONIO 2021-12-21 2021-12-21 Outpatient HUDSON [facility] [id number] [facility] [place] 13:40:04 13:50:33 Elsi KEARNS of Medicin e 2021-12-19 2021-12-19 Outpatient ALVARADOBRANDT [facility] [id number] [facility] [place] 15:57:39 16:22:47 [employer] 2021-12-15 2021-12-15 Outpatient TONY, [facility] [id number] [facility] [place] 10:46:21 12:04:39 MITA [employer] 2021-12-13 2021-12-13 Outpatient ANDI TREVIÑO [facility] [id number] SLE 18:57:08 23:59:00 PABLO KEARNS 2021-12-13 2021-12-13 [facility] [id number] [facility] 18:57:08 23:59:00 [facility] 2021-12-13 2021-12-13 [facility] [id number] 18:57:08 23:59:00 Encounter [facility] 2021-12-13 2021-12-13 Outpatient ANDI SLEDilan [facility] [id number] [facility] 15:13:57 18:56:00 2021-12-13 2021-12-13 [facility] [id number] 14:30:00 18:56:00 Encounter [facility] 2021-12-13 2021-12-13 [facility] [id number] 14:30:00 18:56:00 Encounter [facility] 2021-12-13 2021-12-[address] [facility] [id number] 00:00:00 00:00:00 Orders [facility] 2021-12-13 2021-12-[address] [facility] [id number] 00:00:00 00:00:00 Orders [facility] 2021-12-08 2021-12-08 Outpatient MEG [facility] [id number] [facility] [place] 16:04:18 17:05:24 , PERCY caballero of Medicin e 2021-12-06 2021-12-06 Outpatient ANDI FRANCES [facility] [id number] [facility] 00:00:00 00:00:00 JOSE ANTONIO RAINEY 2021-11-23 2021-11-29 Office MICHELLE PIERCE 1.2.840.114 [id number] [facility] [place] 12:23:45 19:53:49 Visit ABDOULAYE AMBULATOR 350.1.13.21 College Y 0.2.7.2.686 of [id number] Medi mari 375 e 2021-11-21 2021-11-21 Outpatient [facility] [id number] [facility] [place] 09:33:02 23:59:00 Arcelia caballero of Medicin e 2021-11-21 2021-11-21 [facility] [id number] [facility] [place] 15:52:03 16:11:58 JOE mendoza of Medicin e 2021-11-15 2021-11-[address] [facility] [id number] 00:00:00 00:00:00 Orders Jose Antonio rainey [facility] 2021-11-15 2021-11-[address] [facility] [id number] 00:00:00 00:00:00 Orders Jose Antonio rainey [facility] 2021-11-14 2021-11-14 Outpatient LIZBETH [facility] [id number] [facility] [place] 11:26:15 11:54:44 JOSE ANTONIO RAINEYe of Medicin e 2021-11-08 2021-11-08 Outpatient MEG [facility] [id number] [facility] [place] 10:45:10 11:26:55 , PERCY P[place] e of Medicin e 2021-11-07 2021-11-07 Outpatient [facility] [id number] [facility] [place] 12:25:06 19:34:43 [employer]in [employer] 2021-11-06 2021-11-06 Outpatient HUDSON [facility] [id number] [facility] [place] 13:01:13 13:16:00 Elsi KEARNS of Medicin e 2021-11-06 2021-11-06 Outside [facility] [id number] 00:00:00 00:00:00 Orders [facility] 2021-11-06 2021-11-06 Outside [facility] [id number] 00:00:00 00:00:00 Orders [facility] 2021-11-02 2021-11-02 Outpatient KAMERON MARIANO [facility] [id number] [facility] [place] 11:13:16 11:46:07 [employer] 2021-10-04 2021-10-04 Outpatient MEG [facility] [id number] [facility] [place] 14:40:16 15:30:50 , PERCY caballero of Medicin [employer] 2021-10-04 2021-10-04 Outpatient MICHELLE GILMAN [facility] [id number] [facility] [place] 11:02:47 11:22:43 DAVID [employer] 2021-10-03 2021-10-04 Emergency ER VARELA, SLE Emergency [id number] SLE 18:27:00 00:06:00 [facility] 2021-10-03 2021-10-04 Emergency ER Varela, [facility] [id number] 18:27:00 00:06:00 [facility] 2021-10-03 2021-10-04 Emergency Varela, [facility] [id number] 18:27:00 00:06:00 [facility] 2021-10-03 2021-10-03 Outpatient [facility] [id number] [facility] [place] 00:00:00 23:59:00 [employer] 2021-10-03 2021-10-[address] [facility] [id number] 00:00:00 00:00:00 [facility] 2021-10-03 2021-10-03 Travel [facility] [id number] [facility] 00:[facility] 00:00:00 [facility] 2021-10-03 2021-10-[address] [facility] [id number] 00:00:00 00:00:00 [facility] 2021-10-03 2021-10-03 Travel [facility] [id number] [facility] 00:[facility] 00:00:00 [facility] 2021-10-02 2021-10-02 Outpatient MONTSERRAT KAMERON [facility] [id number] [facility] [place] 11:10:31 11:36:49 [employer] 2021-09-29 2021-09-29 Outpatient [facility] [id number] [facility] [place] 13:53:41 19:33:14 [employer] 2021-09-08 2021-09-08 Outpatient [facility] [id number] [facility] [place] 14:39:29 15:57:38 [employer] 2021-09-08 2021-09-08 Office Brandt Alvarado [facility] 1.2.840.114 [id number] [facility] [place] 14:00:00 14:29:40 Visit Chuan AMBULATOR 350.1.13.21 College Y 0.2.7.2.686 of [id number] Medi mari 370 e 2021-09-07 2021-09-07 Outpatient TAWAGUSTÍN, [facility] [id number] [facility] [place] 11:19:54 12:14:35 MITA [employer] 2021-09-01 2021-09-01 Outpatient BHARAT-HUI [facility] [id number] [facility] [place] 09:10:31 09:39:43 , PERCY [employer] 2021-08-30 2021-08-30 Outpatient BHARAT-HUI [facility] [id number] [facility] [place] 09:07:34 09:43:49 , PERCY [employer] 2021-08-28 2021-08-28 Outpatient TONY, [facility] [id number] [facility] [place] 09:29:31 10:12:55 MITA [employer] 2021-08-25 2021-08-25 Outpatient BHARAT-HUI [facility] [id number] [facility] [place] 14:51:23 15:08:58 , PERCY [employer] 2021-08-22 2021-08-22 Outpatient TIGRE, [facility] [id number] [facility] [place] 09:16:35 10:19:47 LEONORA [employer] 2021-08-21 2021-08-21 Outpatient KATHY COELLO [facility] [id number] [facility] [place] 15:32:14 15:45:49 [employer] 2021-08-10 2021-08-10 Outpatient KWMARICEL, [facility] [id number] [facility] [place] 10:45:05 11:03:22 DAVID [employer] 2021-07-18 2021-07-18 Outpatient [facility] [id number] [facility] [place] 10:12:40 23:59:00 [employer] 2021-06-27 2021-06-27 Office MALINDA [facility] 1.2.840.114 [id number] [facility] [place] 11:25:43 14:10:45 Visit NEREIDA AMBULATOR 350.1.13.21 College Y 0.2.7.2.686 of [id number] Medi mari 800 e 2021-06-27 2021-06-27 Office LD BUCK 1.2.840.114 [id number] [facility] [place] 11:47:25 13:43:58 Visit ANTON AMBULATOR 350.1.13.21 College Y 0.2.7.2.686 of [id number] Medi mari 805 e 2021-06-27 2021-06-27 Outpatient KEL [facility] [id number] [facility] [place] 10:52:47 11:01:51 DIPABEN [employer] 2021-06-26 2021-06-26 Outpatient MARY CORTÉS [facility] [id number] [facility] [place] 12:48:58 13:12:49 [employer] 2021-06-14 2021-06-14 Outpatient TEEGAVARAPU [facility] [id number] [facility] [place] 10:32:30 10:36:22 , BINDU Heath ege of Medicin e 2021-05-03 2021-05-03 Office BRANDT ALVARADO [facility] 1.2.840.114 [id number] [facility] [place] 11:20:43 13:31:56 Visit AMBULATOR 350.1.13.21 College Y 0.2.7.2.686 of [id number] [facility] mari 370 e 2021-05-03 2021-05-03 Outpatient [facility] [id number] [facility] [place] 12:39:45 13:27:12 [employer]in [employer] 2021-03-17 2021-03-17 Outpatient MARY CORTÉS [facility] [id number] [facility] [place] 13:52:42 14:02:09 [employer] 2021-03-15 2021-03-15 Outpatient TIGRE [facility] [id number] [facility] [place] 13:01:17 14:14:59 LEONORA [employer] 2021-03-03 2021-03-03 Outpatient GORGE [facility] [id number] [facility] [place] 14:39:05 15:10:23 ENMANUEL [employer] 2021-03-03 2021-03-03 Office MICHELLE PETTY 1.2.840.114 [id number] [facility] [place] 13:47:38 14:34:20 Visit NEREIDA AMBULATOR 350.1.13.21 College Y 0.2.7.2.686 of [id number] Medi mari 800 e 2021-03-03 2021-03-03 Outpatient [facility] [id number] [facility] [place] 00:00:00 00:00:00 [employer]in [employer] 2021-02-14 2021-02-14 Outpatient SHERI MALDONADO [facility] [id number] [facility] [place] 12:52:23 13:06:39 [employer]in [employer] 2021-02-01 2021-02-01 Outpatient MARY CORTÉS [facility] [id number] [facility] [place] 11:08:12 11:16:51 [employer] Medicin [employer] 2021-01-23 2021-01-23 Outpatient SHERI MALDONADO [facility] [id number] [facility] [place] 14:10:03 14:39:01 Colleg e [employer] Medicin e 2021-01-13 2021-01-13 Outpatient MARY CORTÉS [facility] [id number] [facility] [place] 10:40:13 10:46:45 Colleg e [employer] Medicin e 2021-01-05 2021-01-05 Outpatient SHERI MALDONADO [facility] [id number] [facility] [place] 14:02:25 14:28:53 Colleg e [employer] Medicin [employer] 2021-01-03 2021-01-03 Emergency ER [facility] Emergency [id number] [facility] 13:47:00 13:47:00 2020-12-02 2020-12-02 Office Brandt Alvarado 1.2.840.114 [id number] [facility] [place] 11:28:58 12:00:21 Visit Tucker AMBULATOR 350.1.13.21 College Y 0.2.7.2.686 of [id number] Medi mari 370 e 2020-11-11 2020-11-11 Office Brandt Alvarado 1.2.840.114 [id number] [facility] [place] 14:00:00 14:30:00 Visit Chuan AMBULATOR 350.1.13.21 College Y 0.2.7.2.686 of [id number] Medi mari 370 e 2020-11-11 2020-11-11 Office Brandt Alvarado [facility] 1.2.840.114 [id number] 14:00:00 14:30:00 Visit Chuan AMBULATOR 350.1.13.21 Y 0.2.7.2.686 [id number] 370 2020-11-11 2020-11-11 Outpatient [facility] [id number] [address] [place] [address] 12:34:41 12:34:41 Colleg e [employer] Medicin e 2020-10-28 2020-10-28 Outpatient EL BRANDT ALVARADO [facility] [id number] [facility] 00:00:00 00:00:00 2020-10-12 2020-10-12 Appointmen JOELLE STORM [facility] [id number] [place] 10:00:00 10:00:00 t; HECTOR STORM lty Darlene Physi zofia YOUNG M.D. Internation qamar [facility] 2020-09-08 2020-09-08 Patient Andres NYJUANITO 1.2.840.114 [id number] Univers 00:00:00 00:00:00 Outreach Kevin PRIMARY 350.1.13.10 i ty of [place]2.[place] [id number] Pa dical [address] 2020-09-08 2020-09-08 Patient Andres NYJUANITO 1.2.840.114 [id number] 00:00:00 00:00:00 Outreach Kevin PRIMARY 350.1.13.10 [place] 4.2.7.2.686 PAVILLION [id number] 388 2020-08-16 2020-08-16 Appointmen JOELLE STORM [facility] [id number] [id number] [place] 15:30:00 15:30:00 t; HECTOR STORM lty Darlene Physi zofia YOUNG M.D. Internation qamar [facility] 2020-07-22 2020-07-22 Outpatient NADI CAMACHO [id number] [facility] 00:00:00 00:00:00 2020-07-22 2020-07-22 Outpatient SLE SLE [id number] [facility] 00:00:00 00:00:00 2020-06-20 2020-06-20 Appointmen JOELLE STORM [facility] [id number] [place] 14:00:00 14:00:00 t; HECTOR STORM Physi Radha Hernandez M.D. 2020-06-14 2020-06-14 Office Shannan [facility] 1.2.840.114 [id number] [facility] [place] 14:00:46 14:30:46 Visit , Bindu Heathr 350.1.13.21 College [place] 0.2.7.2.686 of [id number] Medi mari 530 e 2020-06-14 2020-06-14 Office Shannan [facility] 1.2.840.114 [id number] 14:00:46 14:30:46 Visit , Bindu Jordy 350.1.13.21 [place]ra[place]i 0.2.7.2.686 [id number] 530 2020-06-09 2020-06-09 Appointmen [id number] [place] 12:00:00 12:00:00 t; HECTOR STORM lty - Leonard YOUNG M.D. Internation qamar [facility] 2020-05-12 2020-05-12 Office Parish Fam [facility] 1.2.840.114 [id number] [facility] [place] 11:31:06 16:54:40 Visit AMBULATOR 350.1.13.21 College Y 0.2.7.2.686 of [id number] Medi mari 305 e 2020-05-12 2020-05-12 Office Parish Fam [facility] 1.2.840.114 [id number] 11:31:06 16:54:40 Visit AMBULATOR 350.1.13.21 Y 0.2.7.2.686 [id number] 305 2020-05-12 2020-05-12 Office Brandt Alvarado [facility] 1.2.840.114 [id number] [facility] [place] 13:27:27 14:12:27 Visit Chuan AMBULATOR 350.1.13.21 College Y 0.2.7.2.686 [id number] [facility] 370 e 2020-05-12 2020-05-12 Office Brandt Alvarado [facility] 1.2.840.114 [id number] 13:27:27 14:12:27 Visit Chuan AMBULATOR 350.1.13.21 Y 0.2.7.2.686 [id number] 370 2020-04-22 2020-04-22 Emergency E LAURIE MHBL [facility] 7512 MHBL 19:33:00 21:32:00 BRANDT 2020-03-31 2020-03-31 Outpatient R SPENSER [facility] [id number] Univers 13:00:00 13:00:00 JORDI [facility] 2020-03-28 2020-03-28 Appointmen JOELLE HAM [facility] [id number] [place] 14:30:00 14:30:00 t; ALANA HAM M.D. brigido WARNER M.D. [facility] 2020-03-17 2020-03-17 Appointmen [facility] [id number] [place] 12:00:00 12:00:00 t; HECTOR STORM [facility] zofia YOUNG M.D. Internation [facility] Radha [facility] 2020-03-10 2020-03-10 Outpatient R SUELLEN MENDENHALL [facility] [id number] Univers 13:30:00 13:30:[address] [facility] 2020-03-10 2020-03-10 Office Elva Son [facility] 1.2.840.11 [id number] Univers 13:06:29 13:21:29 Visit Suellen [facility] 350.1.13.10 [facility] 4.2.7.2.686 [facility] [id number] [facility] AND [address] [facility] 2020-03-10 2020-03-10 Office Huy NYJUANITO 1.2.197.067 [id number] 13:06:29 13:21:29 Visit Elva CARMONAPEC 350.1.13.10 IALTY 4.2.7.2.686 [place] [id number] AND GIL Cr [facility] 2020-03-10 2020-03-10 Orders Doctor ZIYAD 1.2.840.114 [id number] Univers 00:00:00 00:00:00 Only Unassigned, TI 350.1.13.10 ity of [place] [facility] 4.2.7.2.686 [facility] [id number] [facility] [address] 2020-03-02 2020-03-02 Outpatient [facility] [id number] SLE 00:00:00 00:00:00 2020-02-09 2020-02-[facility] Orthopedics [id number] [place] 11:00:00 11:00:00 t; BRANDT [facility] Radha Van [facility] 2020-01-29 2020-01-29 Outpatient ANDI GILMAN, [facility] [id number] SLE 00:00:00 00:00:00 DAVID 2020-01-27 2020-01-27 JOELLE Cabral [facility] [id number] [place] 15:30:00 15:30:00 t; HECTOR STORM, [facility] Radha YOUNG Internation qamar [facility] 2020-01-01 2020-01-01 Appointmelina ALEXIS [facility] Orthopedics [id number] [place] 09:50:00 09:50:00 t; [facility]RETT GROVES [facility] 2019-12-23 2019-12-24 Outpatient E PARVAMANDOI, [facility] MED [id number] [facility] 17:36:00 17:46:00 GOLNAR 2019-12-21 2019-12-22 Emergency Schaffer, [facility] 1.2.840.114 [id number] Univers 22:02:00 02:26:00 Dede White 350.1.13.10 i ty of [place] 4.2.7.2.686 [facility] [id number] [facility] 084 Branch 2019-12-21 2019-12-21 Emergency X SHCAFFER, [facility] ERT [id number] Univers 22:02:00 22:02:00 DEDE michaelmyla of [facility] 2019-12-15 2019-12-15 Layla BILL, [facility] Orthopedics [id number] [place] 11:10:00 11:10:00 t; lilly CARLTON M.D. Hermann ans MICHAEL [facility] 2019-11-27 2019-11-27 Outpatient LANDY, FB [facility] [id number] FB 06:50:00 11:40:00 BRANDT 2019-11-27 2019-11-27 Appointmelina BILL, [facility] UTP [id number] [place] 08:00:00 08:00:00 t; Leonard CARLTON M.D. ans MICHAEL, M.D. 2019-11-10 2019-11-10 Layla BILL, [facility] [id number] [place] 10:45:00 10:45:00 t; Leonard CARLTON M.D. ans MICHAEL, M.D. 2019-10-27 2019-10-27 Layla BILL, [facility] UTP [id number] [place] 11:30:00 11:30:00 t; Leonard CARLTON M.D. ans MICHAEL, M.D. 2019-10-23 2019-10-23 Layla DAMON [facility] [id number] [place] 12:45:00 12:45:00 t; ELOISE DAMON y sici ELOISE [facility] 2019-10-16 2019-10-16 Layla BILL, [facility] [id number] [place] 10:30:00 10:30:00 t; Leonard CARLTON M.D. ans MICHAEL, M.D. 2019-09-30 2019-09-30 Layla STORM [facility] Multispecia [id number] [place] 15:30:00 15:30:00 t; HECTOR STORM lty - Leonard YOUNG M.D. Internation qamar [facility] 2019-09-11 2019-09-11 Telephone Oneyda [facility] 1.2.840.114 [id number] Univers 00:00:00 00:00:00 Tracey White 350.1.13.10 i Dima 4.2.7.2.686 [facility] [id number] Pa dical nal 0[address] [facility] 2019-08-24 2019-08-24 JOELLE March [facility] [id number] [place] 14:30:00 14:30:00 t; HOLGER PERAZA M.D. at [facility] Richard WREN M.[facility]. [facility] 2019-08-20 2019-08-20 Emergency X [facility], [facility] ERT [id number] Univers 11:54:02 15:29:00 MEHREEN ity of [facility] 2019-08-20 2019-08-[address] [facility] 1.2.183.055 [id number] Univers 11:54:02 15:29:00 Mehreen White 350.1.13.10 ity [facility] 4.2.7.2.686 [facility] [id number] [facility] 084 [place] 2019-08-20 2019-08-20 Orders Doctor ESPINAL 1.2.840.114 [id number] Univers 00:00:00 00:00:00 Only Unassigned, TI 350.1.13.10 ity of [facility] 4.2.7.2.686 Tim [id number] [facility] 009 Branch 2019-08-13 2019-08-13 JOELLE López [facility] [id number] [place] 09:45:00 09:45:00 t; lilly CARLTON [facility] Radha [facility] 2019-08-07 2019-08-07 Outpatient [facility] [id number] [facility] 10:04:00 10:04:00 2019-08-07 2019-08-07 Layla DAMON [facility] [id number] [place] 10:00:00 10:00:00 t; ELOISE [facility] ELOISE [facility] 2019-08-04 2019-08-04 Layla BILL [facility] [id number] [place] 13:30:00 13:30:00 t; Leonard CARLTON M.D. ans MICHAEL, M.D. 2019-07-13 2019-07-13 Layla HAM [facility] Multispecia [id number] [place] 13:00:00 13:00:00 t; ALANA HAM M.D. lty - P hysici SABA, M.D. [facility] 2019-07-03 2019-07-03 Emergency X DEBBY [facility] ERT [id number] [facility] 13:52:37 16:46:00 DEMARCO [facility] 2019-06-23 2019-06-23 Layla [facility] [id number] [place] 11:15:00 11:15:00 t; Leonard CARLTON M.D. ans MICHAEL, M.D. 2019-05-19 2019-05-19 Layla VILLANUEVA [facility] Orthopedics 58 [id number] [place] 08:00:00 08:00:00 t; lilly ALEX [facility] brigido [facility] IS[facility], [facility], [address] 2019-05-08 2019-05-08 Layla [facility] Orthopedics 58 [id number] [place] 11:00:00 11:00:00 t; lilly CARLTON [facility] Radha [facility] 2019-05-04 2019-05-04 [facility] [id number] [place] 11:00:00 11:00:00 t; Thony VALADEZ i, M.D. ans ROBERT, M.D. 2019-04-20 2019-04-20 Layla [facility] [id number] [place] 13:00:00 13:00:00 t; OTTONIEL CHAU, Ph Radha Sanchez M.D. 2019-04-16 2019-04-16 Layla PENA [facility] Multispecia 5 [id number] [place] 13:00:00 13:00:00 t; NITHYA [facility] NITHYA [facility] [address] 2019-04-14 2019-04-14 Layla [facility]ILL [facility] Orthopedics 57 [id number] [place] 14:15:00 14:15:00 t; lilly CARLTON [facility] Radha [facility] 2019-04-13 2019-04-13 Appointmen [facility] [id number] [place] 12:00:00 12:00:00 t; HECTOR STORM Physi ci SHAOJIE, M.D. ans M.D. 2019-04-09 2019-04-09 JOELLE Serrano Multis[facility] 5 [id number] [place] 07:00:00 07:00:00 t; Radha [facility]ANTES y - [facility] Radha CERVANT[facility] [address] 2019-04-09 2019-04-09 Outpatient MHSE MHSE [id number] MH 06:10:00 06:10:[facility] 2019-03-26 2019-03-26 JOELLE Goodman Multis[facility]ia [id number] [place] 11:30:00 11:30:00 t; alex HACKETT i, M.D. [place] ROXANN foote M.D. 2019-03-17 2019-03-17 Layla [facility] [id number] [place] 11:00:00 11:00:00 t; Leonard CARLTON M.D. ans MICHAEL, M.D. 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 ans M.D. 2019-02-10 2019-02-10 Layla [facility]ILL [facility] Orthopedics 56 [id number] [place] 13:45:00 13:45:00 t; Darlene CARLTON Physi zofia BILL M.D. [address] qamar CARLTON M.D. 2019-02-05 2019-02-05 Layla [facility] [facility] Mult[facility]pecia [id number] [place] 14:00:00 14:00:00 t; HECTOR STORM lty - Physi ci Radha YOUNG Internation qamar Garcia [facility] 2019-01-29 2019-01-29 [facility] [id number] [place] 15:30:00 15:30:00 t; alex HACKETT Physic maryanne SOUZA M.D. [place] ROXANN foote M.D. 2019-01-29 2019-01-29 [id number] [place] 15:00:00 15:00:00 t; Thony HACKETT i, M.D., FAROKH, M.D. 2019-01-23 2019-01-23 [facility]ointmelina [facility] Mult[facility]ia [id number] [place] 14:00:00 14:00:00 t; NITYHA CERVANTES [facility]ty [facility] NITHYA CERVANTES [address] 2019-01-14 2019-01-14 [facility] [id number] [place] 13:00:00 13:00:00 t; JOCELINE HOBSON lty - Physi ci JOCELINE ARANA Internation a ns [facility] 2019-01-14 2019-01-14 Appointmen JOELLE CHAPA Non-Invasiv [id number] [place] 10:00:00 10:00:00 t; LARRY CHAPA e - [place] [facility] 2019-01-14 2019-01-14 Appointmen DONOVAN CHAPAT [facility] UTP [id number] [place] 09:00:00 09:00:00 t; Lillie CHAPAi PFT [facility] 2019-01-14 2019-01-14 Appointmen JOELLE BUENROSTRO Pulmonary & [id number] [place] 08:30:00 08:30:00 t; CASTILLO BUENROSTRO M.D. Sleep Physici qamar CHONG M.D. 2019-01-13 2019-01-13 [facility] [id number] [place] 08:00:00 08:00:00 t; alex HACKETT Physic i [place], ans , ROXANN, [address] Radha 2018-12-29 2018-12-29 Appointmen COREY HOBSON, JOELLE Multispecia [id number] [place] 13:00:00 13:00:00 t; JOCELINE HOBSON lty - Physi ci JOCELINE ARANA Internation a ns [facility] Results Test Description Test Time Test Comments Results Result Sour e Comments CT, CHEST WITH IV 2022-07-14 42F hx/ DVT/PE, CONTRAST- PE TEST 12:45:00 UC, lap gastric DESIGN sleeve, p/w CHI SOBUnlisted [facility] - MEDICAL Reason for Exam - CENTERName: BERMUDEZ, Click Yes and TODD RAMIREZ : Enter Reason 1980 Sex: Below->No F FI NAL REPORT CT Chest PE Protocol dated 07/14/2022 Clinical information: PE suspected, high prob Technique: CT scan of the chest with intravenous contrast. Dose modulation, interactive reconstruction, and/or weight based adjustment of the mA/kV was utilized to reduce the radiation dose to as low as reasonably achievable. Precontrast axial images were obtained at pulmonary trunk level for the purpose of monitoring subsequent IV contrast. Postcontrast axial images of the chest were obtained from above the arch level to the lower chest at maximum enhancement of pulmonary artery. Delayed axial images of the entire chest were obtained subsequently. Coronal and sagittal reconstruction were provided. MIP images were provided to better assess the vasculature. Comment: Both thyroid lobes are normal in appearance. Heart is in the upper limits of normal in size. Greater vessels are unremarkable. No filling detect is noted in the pulmonary trunk or pulmonary arteries. No adenopathy is noted in the mediastinum or perihilar region. Trachea and mainstem bronchi are patent. Groundglass pulmonary parenchyma disease is seen in both lungs. Differential diagnosis for the groundglass pulmonary parenchymal disease is the following: usual interstitial pneumonia, nonspecific interstitial pneumonitis, desquamative interstitial pneumonia, hypersensitivity pneumonitis, pulmonary edema or pulmonary hemorrhage. No pleural effusion or pleural base mass is seen. Visualized upper abdomen demonstrates free air under both hemidiaphragms. A small amount of free fluid is seen adjacent to the spleen measuring up to 5.3 x 6.2 cm. Impression:1. No pulmonary thromboembolism.2. Nonspecific groundglass pulmonary parenchyma disease in both lungs. Differential as described as above.3. Free air and fluid in the upper abdomen may represent post procedure changes. Please correlate clinically. Signed: Enmanuel Arana MDReport Verified Date/Time: 07/14/2022 12:45:47 Urinalysis w/Microscopic + Reflex to Culture 2022-07-12 19:3 3:30 Test Item Value Reference Range Interpretation Comme nts Color, UA (test code = Yellow 5778-6) Clarity, UA (test code = Hazy 5767-9) Specific [place], UA (test 1.026 1.001-1.035 code = 5811-5) pH, UA (test code = 5803-2) 6.0 5.0-8.0 Protein, UA (test code = 20 mg/dL Negative A 44960-5) Glucose, UA (test code = Negative Negative 365) Ketones, UA (test code = 10 mg/dL Negative A 2514-8) Bilirubin, UA (test code = Negative Negative 65070-1) Blood, UA (test code = Negative Negative 66735-2) Nitrite, UA (test code = Negative Negative 5802-4) Leukocytes, UA (test code = Moderate Negative A 5799-2) Urobilinogen, UA (test code 2 0.2-1.0 H = 67138-6) RBC, UA (test code = 2 See_Comment [Autom ated message] 77589-3) The system [employer] generated this result transmitted ref erence range: /HPF. Th e reference range was not used to interpr et this result as normal/abnormal . WBC, UA (test code = 17 See_Comment [Autom ated message] 5821-4) The system whic h generated this result transmitted ref erence range: /HPF. Th e reference range was not used to interpr et this result as normal/abnormal . Mucus (test code = 8247-9) Rare Squam Epithel, UA (test 8 See_Comment [Au tomated message] code = 74823-1) The system w hic generated this result transmitted ref erence range: /HPF. Th e reference range was not used to interpr et this result as normal/abnormal . Specimen Source (test code = 2795) PEYTON (test code = PEYTON) Entry Table Operator ID - [auto]Entry Table Operator ID - tech Lab Interpretation (test Abnormal code = 46451-8) [facility] [id number] 19:33:30 Test Item Value Reference Range Interpretation Comments COLOR (BEAKER) (test code = 470) Yellow CLARITY (BEAKER) (test code = 469) Hazy SPECIFIC GRAVITY UA (BEAKER) (test 1.026 1.001-1.035 code = 468) PH UA (BEAKER) (test code = 467) 6.0 5.0-8.0 PROTEIN UA (BEAKER) (test code = 20 mg/dL Negative A 464) GLUCOSE UA (BEAKER) (test code = Negative Negative 365) KETONES UA (BEAKER) (test code = 10 mg/dL Negative A 371) BILIRUBIN UA (BEAKER) (test code = Negative Negative 462) BLOOD UA (BEAKER) (test code = 461) Negative Negative NITRITE UA (BEAKER) (test code = Negative Negative 465) LEUKOCYTE ESTERASE UA (BEAKER) (test Moderate Negative A code = 466) UROBILINOGEN UA (BEAKER) (test code 2 0.2-1.0 H = 463) RBC UA (BEAKER) (test code = 519) 2 /HPF WBC UA (BEAKER) (test code = 520) 17 /HPF MUCUS (BEAKER) (test code = 1574) Rare SQUAMOUS EPITHELIAL (BEAKER) (test 8 /HPF code = 516) SOURCE(BEAKER) (test code = 2795) Entry Table Operator ID - [auto]Entry Table Operator ID - techRAD, CHEST, 1 VIEW, NON [id number] 09:00:00Reason for exam:->DyspneaShould this be performed at the bedside?->[facility] : 1980 Sex: FFINAL REPORT INDICATION: Dyspnea COMPARISON: None TECHNIQUE: Single frontal viewof the chest. FINDINGS: Lines, tubes, and devices: None.Lungs and pleura: Bibasilar linear atelectasis. Low lung volumes with perivascular crowding. No pneumothorax.Heart and mediastinum: Normal heart size. Unremarkable mediastinal contours.Osseous structures: No acute abnormality.Other: A left nephroureteral stent is partially imaged. IMPRESSION: No acute intrathoracic abnormality. 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 IMPRESSION: Percutaneous placement of a 8 Thai drainage catheter into perigastric collection, yielding 10 mL of dark red fluid. Plan: Drain to MAAME bulb. PROCEDURE SUMMARY:- Intraperitoneal drainage catheterplacement under CT guidance- Additional procedure(s): None PROCEDURE DETAILS: Pre-procedureConsent: Informed consent for the procedure including risks, benefits and alternatives was obtained and time-out was performed prior to the procedure.Preparation: The site was prepared and draped using maximal sterile barrier technique including cutaneous antisepsis. Anesthesia/sedationLevel of anesthesia/sedation: General anesthesiaAnesthesia/sedation administered by: AnesthesiologyTotal intra-service sedation time (minutes): 20 Drainage catheter placementThe patient was positioned supine. Initial imaging was performed. Local anesthesia was administered. The fluid collection was accessed using an access needle followed by wire insertion and serial dilation and a drainage catheter was placed. Position of the drainage catheter within the fluid collection was confirmed. - Initial imaging findings: Collectionbetween the stomach and the spleen- Drainage catheter placed: Multipurpose drainage catheter- External catheter securement: Non-absorbable suture- Post-drainage imaging findings: No significant change R adiation DoseCT dose length product (mGy-cm): 2452 Additional DetailsAdditional description of procedure: NoneEquipment details: NoneSpecimens removed: Aspirated fluid was sent for analysis.Estimated blood loss (mL): Less than 5 Signed: Alexandru Azar MDReport Verified Date/Time: 07/10/2022 19:23:56 Reading Location: [facility] P048 Angio Body Reading Room PROTHROMBIN TIME/[id number] 04:48:18 Test Item Value Reference Range Interpretation Comments PROTIME (BEAKER) 15.8 seconds 11.9-14.2 H (test code = 759) INR (BEAKER) (test 1.34 See_Comment [Automat ed message] code = 370) The system [employer] generated this result transmitted ref erence range: <=5.90. The reference range was not used to int erpret this result as normal/abnormal . RECOMMENDED COUMADIN/WARFARIN INR THERAPY RANGESSTANDARD DOSE: 2.0 - 3.0 Includes: PROPHYLAXIS for venous thrombosis, systemic embolization; TREATMENT for venous thrombosis and/or pulmonary embolus.HIGH RISK: Target INR is 2.5-3.5 for patients with mechanical heart valves. Screen, [id number] 02:02:32 Test Item Value Reference Range Interpretation Comments Preg Test, Ur (test code = 2112-1) Negative Negative Lab Interpretation (test code = Normal 71010-2) [facility], [id number] 02:02:32 Test Item Value Reference Range Interpretation Comments TEST URINE (BEAKER) (test Negative Negative code = 583) HEPATIC FUNCTION [id number] 08:22:56 Test Item Value Reference Range Interpretation Comments TOTAL PROTEIN (BEAKER) (test code = 5.7 gm/dL 6.0-8.3 L 770) ALBUMIN (BEAKER) (test code = 1145) 3.3 g/dL 3.5-5.0 L BILIRUBIN TOTAL (BEAKER) (test code 0.8 mg/dL 0.2-1.2 = 377) BILIRUBIN DIRECT (BEAKER) (test 0.4 mg/dL 0.1-0.5 code = 706) ALKALINE PHOSPHATASE (BEAKER) (test 43 U/L 40-150 code = 346) AST (SGOT) (BEAKER) (test code = 13 U/L 5-34 353) ALT (SGPT) (BEAKER) (test code = 11 U/L 6-55 347) Entry Table Operator ID - PIAYA LBASIC METABOLIC [id number] 05:37:44 Test Item Value Reference Range Interpretation Comments SODIUM (BEAKER) 141 meq/L 136-145 (test code = 381) POTASSIUM 3.3 meq/L 3.5-5.1 L (BEAKER) (test code = 379) CHLORIDE (BEAKER) 112 meq/L 98-107 H (test code = 382) CO2 (BEAKER) 17 meq/L 22-29 L (test code = 355) BLOOD UREA 6 mg/dL 7-21 L NITROGEN (BEAKER) (test code = 354) CREATININE 0.67 mg/dL 0.57-1.25 (BEAKER) (test code = 358) GLUCOSE RANDOM 78 mg/dL 70-105 (BEAKER) (test code = 652) CALCIUM (BEAKER) 8.3 mg/dL 8.4-10.2 L (test code = 697) EGFR (BEAKER) 112 Interpretatio n of eGFR (test code = [...] not appl icable for dialysis patien ts Entry Table Operator ID - JULIANA [id number] 05:37:44 Test Item Value Reference Range Interpretation Comments MAGNESIUM (BEAKER) (test code = 1.7 mg/dL 1.6-2.6 627) Entry Table Operator ID - JULIANA [id number] 05:37:44 Test Item Value Reference Range Interpretation Comments PHOSPHORUS (BEAKER) (test code = 2.7 mg/dL 2.3-4.7 604) Entry Table Operator ID - JULIANA LC-REACTIVE [id number] 05:37:44 Test Item Value Reference Range Interpretation Comments C-REACTIVE PROTEIN (BEAKER) (test 5.08 mg/dL 0.00-0.50 H code = 676) Entry Table Operator NIC - JULIANA LCBC W/PLT COUNT & AUTO [id number] 05:06:09 Test Item Value Reference Range Interpretation Comments WHITE BLOOD CELL COUNT (BEAKER) 5.7 K/ L 3.5-10.5 (test code = 775) RED BLOOD CELL COUNT (BEAKER) 3.15 M/ L 3.93-5.22 L (test code = 761) HEMOGLOBIN (BEAKER) (test code = 10.1 GM/DL 11.2-15.7 L 410) HEMATOCRIT (BEAKER) (test code = 31.2 % 34.1-44.9 L 411) MEAN CORPUSCULAR VOLUME (BEAKER) 99 fL 79-95 H (test code = 753) MEAN CORPUSCULAR HEMOGLOBIN 32.1 pg 25.6-32.2 (BEAKER) (test code = 751) MEAN CORPUSCULAR HEMOGLOBIN CONC 32.4 GM/DL 32.2-35.5 (BEAKER) (test code = 752) RED CELL DISTRIBUTION WIDTH 13.7 % 11.7-14.4 (BEAKER) (test code = 412) PLATELET COUNT (BEAKER) (test 227 K/CU MM 150-450 code = 756) MEAN PLATELET VOLUME (BEAKER) 10.4 fL 9.4-12.3 (test code = 754) NUCLEATED RED BLOOD CELLS 0 /100 WBC 0-0 (BEAKER) (test code = 413) NEUTROPHILS RELATIVE PERCENT 61 % (BEAKER) (test code = 429) LYMPHOCYTES RELATIVE PERCENT 28 % (BEAKER) (test code = 430) MONOCYTES RELATIVE PERCENT 9 % (BEAKER) (test code = 431) EOSINOPHILS RELATIVE PERCENT 2 % (BEAKER) (test code = 432) BASOPHILS RELATIVE PERCENT 1 % (BEAKER) (test code = 437) NEUTROPHILS ABSOLUTE COUNT 3.45 K/ L 1.56-6.13 (BEAKER) (test code = 670) LYMPHOCYTES ABSOLUTE COUNT 1.59 K/ L 1.18-3.74 (BEAKER) (test code = 414) MONOCYTES ABSOLUTE COUNT (BEAKER) 0.48 K/ L 0.24-0.36 H (test code = 415) EOSINOPHILS ABSOLUTE COUNT 0.10 K/ L 0.04-0.36 (BEAKER) (test code = 416) BASOPHILS ABSOLUTE COUNT (BEAKER) 0.04 K/ L 0.01-0.08 (test code = 417) IMMATURE GRANULOCYTES-RELATIVE 0.20 % 0.00-1.00 PERCENT (BEAKER) (test code = 2801) COMPREHENSIVE METABOLIC [id number] 13:36:22 Test Item Value Reference Range Interpretation Comments TOTAL PROTEIN 7.4 gm/dL 6.0-8.5 (BEAKER) (test code = 770) ALBUMIN (BEAKER) 4.3 g/dL 3.5-5.0 (test code = 1145) ALKALINE 62 U/L 30-115 PHOSPHATASE (BEAKER) (test code = 346) BILIRUBIN TOTAL 1.4 mg/dL 0.1-1.2 H (BEAKER) (test code = 377) SODIUM (BEAKER) 142 meq/L 135-148 (test code = 381) POTASSIUM (BEAKER) 4.0 meq/L 3.6-5.5 (test code = 379) CHLORIDE (BEAKER) 110 meq/L 98-106 H (test code = 382) CO2 (BEAKER) (test 20 meq/L 24-32 L code = 355) BLOOD UREA 13 mg/dL 10-26 NITROGEN (BEAKER) (test code = 354) CREATININE 0.71 mg/dL 0.50-1.20 (BEAKER) (test code = 358) GLUCOSE RANDOM 71 mg/dL 70-110 (BEAKER) (test code = 652) CALCIUM (BEAKER) 8.8 mg/dL 8.5-10.5 (test code = 697) AST (SGOT) 45 U/L 5-40 H (BEAKER) (test code = 353) ALT (SGPT) 20 U/L 5-50 (BEAKER) (test code = 347) EGFR (BEAKER) 109 Interpretatio n of eGFR (test code = [...] not appl icable for dialysis patien ts [id number] 13:36:12 Test Item Value Reference Range Interpretation Comments LIPASE (BEAKER) (test code = 749) 105 U/L 40-240 LACTIC ACID, [id number] 13:32:48 Test Item Value Reference Range Interpretation Comments LACTATE BLOOD VENOUS (2) (BEAKER) 0.80 mmol/L 0.50-2.20 (test code = 2872) Urinalysis w/Microscopic + Reflex to [id number] 13:02:00 Test Item Value Reference Range Interpretation Comments Color, UA (test code Yellow = 5778-6) Clarity, UA (test Slightly Cloudy code = 5767-9) Specific [place], UA >=1.030 1.005-1.030 (test code = 5811-5) pH, UA (test code = 6.0 5.0-9.0 5803-2) Protein, UA (test 30 mg/dL Negative A code = 86444-1) Glucose, UA (test Negative Negative code = 365) Ketones, UA (test >=80 mg/dL Negative A code = 2514-8) Bilirubin, UA (test Positive Negative A code = 60303-9) Blood, UA (test code Negative Negative = 71548-7) Nitrite, UA (test Negative Negative code = 5802-4) Leukocytes, UA (test Trace Negative A code = 5799-2) Urobilinogen, UA 0.2 (test code = 49534-5) Bacteria, UA (test Many code = 80085-1) RBC, UA (test code = <5 See_Comment [Autom ated 799-7) message] The system which generated this result transmit svetlana reference range : /HPF. The reference range was not used to interpret this result as normal/abnormal . WBC, UA (test code = 50-100 See_Comment [Autom ated 48441-4) message] The system which generated this result transmit svetlana reference range : /HPF. The reference range was not used to interpret this result as normal/abnormal . SQUAMOUS EPITHELIAL 20-50 See_Comment [Automa svetlana (test code = 87085-4) messag e] The system which generated this result transmit svetlana reference range : /HPF. The reference range was not used to interpret this result as normal/abnormal . Specimen Source (test code = 2795) Lab Interpretation Abnormal (test code = 47007-2) [facility] UR[facility] [id number] 13:02:00 Test Item Value Reference Range Interpretation Comments COLOR (BEAKER) (test code = Yellow 470) CLARITY (BEAKER) (test code = Slightly Cloudy 469) SPECIFIC GRAVITY UA (BEAKER) >= 1.005-1.030 (test code = 468) PH UA (BEAKER) (test code = 6.0 5.0-9.0 467) PROTEIN UA (BEAKER) (test 30 mg/dL Negative A code = 464) GLUCOSE UA (BEAKER) (test Negative Negative code = 365) KETONES UA (BEAKER) (test >=80 mg/dL Negative A code = 371) BILIRUBIN UA (BEAKER) (test Positive Negative A code = 462) BLOOD UA (BEAKER) (test code Negative Negative = 461) NITRITE UA (BEAKER) (test Negative Negative code = 465) LEUKOCYTE ESTERASE UA Trace Negative A (BEAKER) (test code = 466) UROBILINOGEN UA (BEAKER) 0.2 (test code = 463) BACTERIA (BEAKER) (test code Many = 517) RBC UA-MANUAL (BEAKER) (test <5 /HPF code = 1659) WBC UA-MANUAL (BEAKER) (test 50-100 /HPF code = 1661) SQUAMOUS EPITHELIAL MANUAL 20-50 /HPF (BEAKER) (test code = 1663) SOURCE(BEAKER) (test code = 2795) SARS-CoV2/RT-PCR (Asymptomatic ONLY)2022-07-06 12:35:39 Test Item Value Reference Interpretation Comments Range SARS-COV2/RT-PCR Negative Negative The SARS-Co V-2 (test code = target nucleic 26577-4) acids are not detected in thi s [...] om SARS-CoV-2 in a nasopharyngeal swab specimen collec svetlana from individual s suspected of COVID-19 [...] revoked sooner. Fact Sheet for Healthcare Providers: https://www.[employer]/Documents/Xp ert%20Xpress%20SAR S%20CoV-2/Fact%20S heets/302-3802%20S ARS-COV-2%20HEALTH CARE%20PROVIDERS%2 0FACT%20SHEET.pdf Fact Sheet for Healthcare Patients: https://wwwSho[employer]/Documents/Xp ert%20Xpress%20SAR S%20CoV-2/Fact%20S heets/302-3801%20S ARS-COV-2%20PATIEN T%20FACT%20SHEET.p df Lab Interpretation Normal (test code = 13533-6) [facility]06 12:35:39 Test Item Value Reference Interpretation Comments Range SARS-COV2/RT-PCR Negative Negative The SARS-Co V-2 (test code = target nucleic 64785-7) acids are not detected in thi s [...] om SARS-CoV-2 in a nasopharyngeal swab specimen collec svetlana from individual s suspected of COVID-19 [...] revoked sooner. Fact Sheet for Healthcare Providers: https://www.[employer]/Documents/Xp ert%20Xpress%20SAR S%20CoV-2/Fact%20S heets/302-3802%20S ARS-COV-2%20HEALTH CARE%20PROVIDERS%2 0FACT%20SHEET.pdf Fact Sheet for Healthcare Patients: https://www.[employer]/Documents/Xp ert%20Xpress%20SAR S%20CoV-2/Fact%20S heets/302-3801%20S ARS-COV-2%20PATIEN T%20FACT%20SHEET.p df Lab Interpretation Normal (test code = 44329-5) [facility])2022-07-06 12:35:39 Test Item Value Reference Range Interpretation Comments SARS-COV2/RT-PCR Negative Negative The SARS-Co V-2 target (test code = nucleic acids a re not 3748662) detected in thi s specimen. Negative result [...] revoked sooner. Fact Sheet for Healthcare Providers: https://www.[employer]/Documents/Xpert%20Xpress%20SARS%20CoV-2/Fact%20Sheets/302-3802%53YPEH-QSR-6%20 HEALTHCARE%20PROVIDERS%20FACT%20SHEET.pdf Fact Sheet for Healthcare Patients: https://www.[employer]/Documents/Xpert%20Xp ress%20SARS%20CoV-2/Fact%20Sheets/302-3801%46KPAU-GGT-2%20PATIENT%20FACT%20SHEET .pdfCT, [id number] 12:27:00Unlisted Reason for Exam - Click Yes and Enter Reason Below->NoProtocol Please Specify:->Standard ProtocolWill this procedure require oral contrast?->No [facility] : 1980 Sex: FFINAL REPORT CT of the abdomen and pelvis, with contrast Clinical History: Abdominal pain, acute, nonlocalized Technique: CT of the abdomen and pelvis is performed with intravenous contrast administration. This exam was performed according to our departmental dose optimization program which includes automated exposure control, adjustment of the mA and/or kV according to patient's size and/or use of iterative reconstructive technique. Comparison Film: October 03, 2021 Discussion: Visualized lower thorax is unremarkable. No liver mass is identified. No biliary ductal dilatation. Status post cholecystectomy. The spleen, pancreas, and adrenal glands are unremarkable. Status post right nephrectomy. The left kidney demonstrates no mass, hydronephrosis, or radiopaque stone. There is postsurgical change along the greater curvature of the gastric body. A fluid collection between stomachand spleen measures approximately 9.1 x 7.4 x 7 cm, probably a seroma. No bowel obstruction, or abnormal bowel wall thickening. Normal appendix. In the pelvis, the bladder is normal. An IUD is centrally positioned. No adnexal mass. There is no free air, or ascites. No lymphadenopathy. Bony structures are intact. Impression: There is postsurgical change of the gastric body. There is a gastrosplenic region fluid collection that likely represents a postsurgical seroma. Patient is also status post cholecystectomy, and right nephrectomy. Signed: Sophie Stearns Verified Date/Time: 07/06/2022 12:27:18 Reading Location: [address] Ortho Consult Reading Room PT/[id number] 11:56:50 Test Item Value Reference Range Interpretation Comments PROTIME (BEAKER) (test 10.6 seconds 9.8-12.0 code = 759) INR (BEAKER) (test 0.96 See_Comment [Automat ed code = 370) message] The sy stem which generated this result transmitted reference range : <=5.90. The reference range was not used to interpret this result as normal/abnormal . PARTIAL THROMBOPLASTIN 28.5 seconds 25.8-34.5 TIME (BEAKER) (test code = 760) RECOMMENDED COUMADIN/WARFARIN INR THERAPY RANGESSTANDARD DOSE: 2.0 - 3.0 Includes: PROPHYLAXIS for venous thrombosis, systemic embolization; TREATMENT for venous thrombosis and/or pulmonary embolus.HIGH RISK: Target INR is 2.5-3.5 for patients with mechanical heart valves.CBC W/PLT COUNT & AUTO [id number] 11:25:04 Test Item Value Reference Range Interpretation Comments WHITE BLOOD CELL COUNT (BEAKER) 7.6 K/ L 3.5-10.5 (test code = 775) RED BLOOD CELL COUNT (BEAKER) 3.77 M/ L 3.93-5.22 L (test code = 761) HEMOGLOBIN (BEAKER) (test code = 12.0 GM/DL 11.2-15.7 410) HEMATOCRIT (BEAKER) (test code = 37.2 % 34.1-44.9 411) MEAN CORPUSCULAR VOLUME (BEAKER) 99 fL 79-95 H (test code = 753) MEAN CORPUSCULAR HEMOGLOBIN 31.8 pg 25.6-32.2 (BEAKER) (test code = 751) MEAN CORPUSCULAR HEMOGLOBIN CONC 32.3 GM/DL 32.2-35.5 (BEAKER) (test code = 752) RED CELL DISTRIBUTION WIDTH 13.6 % 11.7-14.4 (BEAKER) (test code = 412) PLATELET COUNT (BEAKER) (test 309 K/CU MM 150-450 code = 756) MEAN PLATELET VOLUME (BEAKER) 9.8 fL 9.4-12.3 (test code = 754) NEUTROPHILS RELATIVE PERCENT 69 % (BEAKER) (test code = 429) LYMPHOCYTES RELATIVE PERCENT 21 % (BEAKER) (test code = 430) MONOCYTES RELATIVE PERCENT 9 % (BEAKER) (test code = 431) EOSINOPHILS RELATIVE PERCENT 1 % (BEAKER) (test code = 432) BASOPHILS RELATIVE PERCENT 1 % (BEAKER) (test code = 437) NEUTROPHILS ABSOLUTE COUNT 5.23 K/ L 1.56-6.13 (BEAKER) (test code = 670) LYMPHOCYTES ABSOLUTE COUNT 1.58 K/ L 1.18-3.74 (BEAKER) (test code = 414) MONOCYTES ABSOLUTE COUNT (BEAKER) 0.64 K/ L 0.24-0.36 H (test code = 415) EOSINOPHILS ABSOLUTE COUNT 0.05 K/ L 0.04-0.36 (BEAKER) (test code = 416) BASOPHILS ABSOLUTE COUNT (BEAKER) 0.04 K/ L 0.01-0.08 (test code = 417) IMMATURE GRANULOCYTES-RELATIVE 0.30 % 0.00-1.00 PERCENT (BEAKER) (test code = 2801) POC-Glucose [id number] 14:06:23 Test Item Value Reference Range Interpretation Comments POC-Glucose Meter (test 117 mg/dL 70-110 H : TE STED AT [facility] code = 1538) 6720 [facility], 770 30: Entry Table Operator/Techni sandy ID = [id number] for Rehami, Ronen Lab Interpretation (test Abnormal code = 37869-9) [facility] [id number] 14:06:23 Test Item Value Reference Range Interpretation Comments POC-Glucose Meter (test 117 mg/dL 70-110 H : TE STED AT [facility] code = 1538) 6720 [facility], 770 30: Entry Table Operator/Techni sandy ID = [id number] for Rehami, Ronen Lab Interpretation (test Abnormal code = 10198-5) [facility]-GLUCOSE [id number] 14:06:23 Test Item Value Reference Range Interpretation Comments POC-GLUCOSE METER 117 mg/dL 70-110 H : TESTED A T [facility] 6720 (BEAKER) ([facility], 1538) [address]: Entry Table Operator/Techni sandy ID = [id number] for Re hami, Ronen Tissue [id number] 14:57:34 Test Item Value Reference Range Interpretation Comments Case Report (test code Surgical Pathology = 104) Report Case: [id number] Authorizing Provider: Jose Antonio Martínez Collected: 06/20/2022 11:46 AM MD Froilan Ordering Location: [facility] Received: 06/20/2022 01:27 PM SERVICES Pathologist: Veronica Mccoy MD Specimen: Stomach, PARTIAL GASTRECTOMY DIAGNOSIS (test code = v4gruZDxWHKmu4avVMXvsKF 3220) uZzEwMzNcZnRuYmpcdWMxIH tccnRmMVxlcGljOTYwMlxhb sDmUAFaqLOlR2HssqsbGCrd XE8kNB0nvOyeyUTvaAHbXHK wNpQej7svn442tMEkx4jmZZ PFbhfstVx5fSzkC85ki0R7X ubyS42gsFWyUSY8BAPvPNCt kPAvYIYqBAI9GZUbbTOiC5n rBXIbDJ2qkmmoKJkkLPctLD SnbBJ8JBLmuOSxX9XmRJAwM DysEAIcidn3FcRfKg9bzANc eTcyMFxwYXJkXHBsYWluXGZ vBbBpKL1uY2KKHIAEROoiUI SGXOcSMJCEPRABUxFFVR0KE DdmvQHeAJOaTbPdS1eNJqGS ToCKIOLVT2VwD2iUPIYSDdL HMSrCJAKGE8DMYQZSYBNIR0 iKA0zFZCWGLRGLHTQQD88lw GFyXHRhYiAtTkVHQVRJVkUg Gk1AEOlDRKzXN5VHY9FMBlN IRULJQ47MS1GBPQGYKaPQJa BLZ3MPMC1GOMWPYOfQR3agH QK6o7hgyMXaRZEeqLRxSMKy MFxhbnNpXGRlZmxhbmcxMDM rPSJ8eiNhUYMoRVqtLWSaJZ wiPr2tlTJuzOryNrEaVDRql 4gvetRNmdzteQn7d3whPGCh ZnQ2hQDyGBxeZ6thtpGzhJL tISMpBVg1pL51PSVjrJ6axP QmFDtempEqGkG2ISlnRXOiY vR9TPMnbFFrTFPcG9lqTCLq PFzhGEXvKQiswTCwQZE3gDa aw9J8uTRpdAWdnSfuZeEfIt MmTsVOa5CcJRy6kFmyV8IuG AGyKtJ0xNMrCSXvYBrcLDBc TQJvrjR4hP73BHrsioB6mUH qw0Pnk08ny182bN5nkOUxZM K5WPIsCJDgfNGaHSMyQHI5L DLtuTIdO1zcDLOzTJ7gscng ZCsrACxcWYRhzFO8MPNtgPZ mI1UoZFLoBAapWBLxjnb6Ds MxZt9kyMGbnWhlNStdh5vtn 6pjrJVmOdr3AFNbCvHnTvve FFfhw9Fxz0ojIFMfbd5wGPN 4dREvoVdca8C0vBJwXGXyjX SgIEDeUV9ytOPpZBUylH1ed mxjXHBnYnJkcmhlYWRccGdi wsZvHk1udUvnTBD9MRckV6n myS3xGkF6DLrkJ0efjX3wGB x7GLpmOQHznBA7heH9BQNnq CBlM9RmnZ5xNVLnCJ9yrjs0 w9enXRJ2CEvdZZSkAuO9ybE 4GCTkqHYwZOFujNnyOBgxz4 74DNV0NaFpEQLhl5MiN4Mch WfwA40oaJjyM43vTKHxnZmz xN7mjJolrN9lXvHrUfLuFHc ksHssUU7oJNNiT4hgdBFiZN EfEKVrU8ppSdLslW3vwHsvE BeiopFdSESuCxl7PSZfqLOk PITkNcp6NDLuLZDuF80gcdp uKFE1tE3ox7pnf9MoPTjwNB G5SPZtu21eTEhxssZ5PNeeX x36PPtxNDV6VUfhMEO5iU== CPT Code(s) (test code r2yjiUKxBLOxdCT2HfVqWUX = 3357) sa5ueh6YycJHlvWKiJIcdnR WeqhPmnf05yOL7yZ49YA5hX JSmWjH8OLNueyN9Mnh2LLSt KENwwGGpV449i1pzk2yvubR jiNA5ySgcCXSifmsrSzX5LG vtRRVepjufKSs5NGnaMSVtv WV1IYNjvSEdX6NxLVQbIR9g ncp3ONH6ELsiXFTsTaU2CFY jtGLbXIEtkLuiTKjey195JX F6GnNiRGSakxEwmYkzfF1bI zDqGXB0RPKdZ7qcLKI9 CLINICAL HISTORY (test d6ulgTZbLLVlsPH7KvSwLZT code = 3356) ph1kwv0PbyIZhhSNoTJunfO ZgkhQfsq85cZE7iB13YB4vU GVpAoQ9VUTvklC4Ecz2PCGu WTYblCEqH868x5bdf4fnktI dxYL3MIOiEABeM9SaMU0cXI CqmWNhE63sbZJnXUY5WSXjV LLnyABwVFAeTJX8IKIdgEKx L9yoUPOoWZ8perneYCfxTWe gHHTlpZK0NXEwpHSlQ3GaPL TfVCnrUUQkbwj0LwPwCg0ho GVyeTcyMFxwYXJkXHJpMVxw jUGdgwtvarSiHVZyLADMn1V udEOwr8Hwg1q5iPsehZvtCP OTe1A6CN1lr8TikD5mDBedP NHwUA59JI03LEJdZVZmmBjd dBeaTVVIw2QxxfBeLJocbGe wXWD5TY5ohJ9zBNSgJRidL0 5hbnRccGFyfQ== SPECIMEN SOURCE (test l9ibiAErQTXrySL8NsCdBIC code = 3377) qi0ttc9OuxCJdmVLmJZgowY YglqMkqs55bCK9eY83TQ9bU IBgWtY1KUBighY6Rvm7QRId XSJanFKsC475i0zwb3zoqoM jhQT2wOssLLBfqkfyUuY8VN fsCEFtwprzNDa6TYlxHKKwl UV6IHBqsRJrT0QnQFIgRZ8o lwn7HQK6JEboYOLmJmN2ODV xnUDeJHHbqBuaYMyud902LH Y7JdZxKMMuwnTikBihnF0mL gPfGMAAsF7jLSNwAEYjnp8= GROSS DESCRIPTION v8qauJJfIHUnpPU4HcGfZDR (test code = on8oru8PdvCFzgDBnZStpgD [id number]) FvfvTldy05cAX3fO97PX0tE QLdRzE0NASqoiH7Pbu3HDJr DMEbzAQlM380h4ylf4llpdI bcJY8iEaqGFZfesdjFcJ8XX lyIIFnyvnoOYe4JPsxYHDhb LL5YNXgxLUpV9AnGKOvAI2t gcu5UAF6NJhdVLNbMtH5PVF vwTChOVLjlAjbSSnjq800WY B7EvStSQCyxkN3IJqtREDiM 5NbH5MqYYdpJGU4CFUzINLq IYBlOCNhMISzQFdiayK0v8l hQUQinEFhUGA0KRfsdEQwQU TaPIAxOKuwBjUTSxPsBoT3L AvrEEHfIwI2LOy2DBIWZkBx SvWsYqV2UiZ0QnLfQDd8WGx 5KWtTAeR8KWE3IKP2QpmuTY UaSgRkKYc4PPIlAXvjlKDwB XIsTWViXTcmRDgfN33qyJoj eX3pKkGbFHOZRcRXzL6hLKC oLlxwYXJcZnMyMCBSZWNlaX RvMIBzksUlm4DeIDkwoxHuR PYadJPcKNXkHQIzICLzDJ63 X0NxaeRiPPtzWYHkOBOvaX9 dRE44mLNlluJfovYiLwAdkc AzGYseN8OpbBNiN3KvtExxE QmeRVFfXwXqMQZ0NFDkVFB1 WIIgGSMwaXY6si6wfTJljTS xCGWuycPxw28fm5Loh1LrnD TyaMT5eWVxVGPoItJtPIIlv ACbnT7uDFHmn4MqwMeqWZat kwFdSHDHsKWcy4Lgh0UaKIj yQSZdcd1qrY7cVNOfiF2dcE ftHI5cFIv4jDSeDK4gHf2hH DXnLKVkhQFptZ0btwFgpnQi tOQcFNPdaV3fgbF6ZTTpQHQ tvULdQSHalshaQULyJ2OkkF trMNL3eExvmLM9n7TyXA94C 29kHCD9fAX6CSBif4NnZLxb NW2vzz2rgMIrfUbhgQLdg2f lpx5xBX8yPQExd7MjLCIxZJ wkk1jkylUzHLQmFTwvCN07q WZpZWQuICBSZXByZXNlbnRh fMf7AOSeZPT9sM9hinPpndS ok1EvwTm7uVGxHCfpVKDvXA UnCpousT4cURquxnTfXUcwQ XIgQXJndWVsbGVzLCBQQSwg FVFtHGKFD9Cdi3cgpMarb3W euQSmBJ05DIZkwCBdIVI7TA 3qiZlgNGN3 MICROSCOPIC r6lldRPgIIHuaYG0ByVxHKH DESCRIPTION (test code sa8ytl6PtmMNehSZtQLwobF = 3371) YozbSpke77fSX7lW69PA3eB BOdSkG7JCFsvcT2Vzo5XZEy XYSljUFuT958n4ljk7orlzS fcTE6cAzwZJZaurmtIlH7QE cxXWGctxqqRNw2INffXWEmw YI3MWDonDHyR6HpKYCyTD5t uzu7DTU4CYyyPHKhFpW4SDY sfQBbHUMrqQwePSqzd695AQ K2KvWfHNYquxBxxJtjcT3sV cJoFZVQkcZaxEfatRBmO5Si qMMzyaZpHA0lVXWbt56wROg whELxjSfmQNtseMB4DYQqRF LfDSoiYUgabFank0vcJL0fG R6yuFowfrOeS1nvoSSls0Id ry7jMw9jNGAyfQFeRcKecUG fVO5zV6Bjl9ScZB6ou26mMI WsWNGqFHCfJM7rCZXriPQdq fPza5OjvW8uObAxEOOspm1= Gross assessment was [facility] performed at ([facility], code = 2777) Department of Pathology, [address] [place] [address], Technical component [facility] was performed at ([facility], code = 2778) Department of Pathology, [address] [place] [address] 499[address], Professional component [facility] was performed at ([facility], code = 2779) Department of Pathology, [address] [place] [address], [facility] Hospital[facility] [id number] 14:57:34 Test Item Value Reference Range Interpretation Comments Case Report (test code Surgical Pathology = 104) Report Case: [id number] Authorizing Provider: Jose Antonio Martínez Collected: 06/20/2022 11:46 AM MD Froilan Ordering Location: [facility] Received: 06/20/2022 01:27 PM SERVICES Pathologist: Veronica Mccoy MD Specimen: Stomach, PARTIAL GASTRECTOMY DIAGNOSIS (test code = v1nqaQPmLUPat9ihQXZloLU 3220) uZzEwMzNcZnRuYmpcdWMxIH tccnRmMVxlcGljOTYwMlxhb tDgSXFqvTFtJ7SxshlzUKxu UF5hIU9bnBzvxDAzwJDlIHH mSgJmt3jdm914pEDhu6vgQY TPtimnzHb3lEqoO96ms4R3Q usyW90sgINsPCK6TDAlALTe zGJtTQQnQPO7ZOHmdNDrW4v qSKRnGS3afuxuYBsiDOhqTN RxgLR4QBMgzWHaK7RwPUDuL OsyFJYmppi1BuSnYi8xxVMk eTcyMFxwYXJkXHBsYWluXGZ ePkUiQV8rJ6DDXCVEFOpcPI CEPEpIBMSFNLGWJwXVHY7BW KieyMUsSWCrFfHpO0eFZyLC DwQQZKYFZ0RhG4bCMEGNGpN ZKDdQIFJQN3JWUNZBVRGUU3 vJG9fFSZCETCWCFIDMI61aq GFyXHRhYiAtTkVHQVRJVkUg Kj8NHHpTWTxGB1XSZ3UCPyE NSSYHO92GO4YVZYAWMvSRAg PCX3STUW8NERYSAJiRH5jaJ QD9g6ocdNIpBTBpyUMaOVSh MFxhbnNpXGRlZmxhbmcxMDM gUSD0qlLlPMCtOIrzGZUeEK ynTk7qaESzqFbwYqWwCWTdi 4bwpgXTfddabDw0j9qaLKMu LtR4tSFwFMjhR0iwagRkzAH jTUJbUVo5jK31LCIbeE9aiC WiTKynikXcWfA0LNuqYOOpF vL4JDGwkNFnQELrZ4pxEZWs ENaeFWBrLWmsoCFgHBU6tNu in0N1xLXqnNAnnSakSeGmKp ZsGoNOs2BrQWx8rKiuG0SbQ WKoWrJ6mFLsVDRsQZisBOPm TWOtxsW6vU75IAwlpiY5cKD oj8Xde90mt913wX8pgHWuMF H4ERMpWILnpFQbXQZuSGY6L UOqiIQuQ3noNOKrJI5lskze IZhkIEuzBRZmsHO8PBCscZZ jY8RhFFPvBYwwXPQksvb0Gu SnRw3asAVthUflQKeqr7xcu 9pmdUZgPhh0VKBcPfXgVmhv TMujl1Kym6foSUGgni6fWSU 5hXTgqZase1V1wDTzEYUezL NiZLUnIW9paGSjIKRsaS7bp mxjXHBnYnJkcmhlYWRccGdi enZhSw3foSrhQQU3FNkjF5y zwZ4cXvB3EObfF0jkbU3jVH w1FMqqOBXilJW7yhU7LNVpp JLrN4ZjjR9jOPGiRC1veym1 g9mqDMI6LPlrODNaKwB2ddJ 6XPGisWRuDSJdxJsfWImzr5 59LQW5UmMnWLXiz6PgS5Rvk PmhP23deEvnQ72gXVZfoIbx eT6teCcgrF3rZwJkEdUjDQk buNuxFT6wBJTaF3sexOBlGW NpKTOrZ2mpDkIgyC4edDwvC IxnwfWfUDGtUjr3JLCcqSSs IFPiKwv4MJVqFBOcN69fngq hHEH9sT5eq5nam7FqNAknKA A8MUBuz77rDQjhyoG2KFcmB g01ULxpNWF8XNfzXBY8jQ== CPT Code(s) (test code c9nneLNcBIQabIE6BkEqGTP = 3357) iz3kng2PygCQyiFEnNSopfA VwceUsox59mKE5eZ14RT2xE KCtTbG4NCChtuC1Lsv6QBHo CRCstJDlD911l5sva2edehN xhUR7hOvhVXGzyvheFpM4VA ggUXVdpigoPGp8BDieIMXac UV9HUSrkQJcW3VtUGVsCH6o ipm7YBL8MOqeAKCcGaE9FSN klWZeMLOuvHyhPVdip121MC P4OwTgFMRbwaMiiUsxgG1dP yVvJHJ1VSIfE0fzXKA5 CLINICAL HISTORY (test y3btxOQmIRWtbOA8BgKaHWS code = 3356) ag7iuk9VxsTQsfWTyHOryvG QfijHite01rGH0nI34EH3xZ KOrBrJ4HBOubvL0Ejb3CSKd ZNJkmREwF957m6ysa4wfuiP fzFL9UJFaBJJpH7WdSW3vBV QcsCDlD34ihVAdLGS7LJLlR SFbkAEnYWVtPBF0BYHbzOHv G7cjOMAbHA2bgscpHImyWXc aLSFsyZH3ZEQiwDTpF6NkCD KuHTmdFTMxcxy8XvFnTy1co GVyeTcyMFxwYXJkXHJpMVxw xYBgdkcashKhJZZdKQGBf9W zhQMtm5Cir3r2sTfrkDtyNS TMp9P3IT7lw5BplF2oQBnxS DNeCK55QL48OOAfUUYbyNvw eXckCSMMb6PqnkHdFBqxiYq yUIA7SI4keA1yEGTcRUqfS1 5hbnRccGFyfQ== SPECIMEN SOURCE (test i4xbuMOgRKOqhVE7DqRrOYN code = 3377) ct7eqi6WqbLSrvQAvEKbeeH YlgbTtoi58rBN3fC51NV1wJ RKoVdS3MTKateU6Tyu5WFOa WEBarYIdR017h7jgd6mohsO mwRI9qYeeAZVaunxiPsV0EK gkVQKzpzeeAIc2KUjlYHNcz HA8RVVpwEWzB6TzHIOaTB4e tvn2KEB8QRcmFJOyOoM4MDK pjZVvNKJxpRbyEZvxg993IO J0AsIgIDXxmrMnjKoxbF3fQ zBfSBPAdH4vJPEcIMRieb0= GROSS DESCRIPTION j6yheVLxKLYoaAM8WnMjKIP (test code = as5fku0UpeNBhjJOvKSyzkD [id number]) YnugEgjw06yZH8jG87PY9rN MYyNvF4SWAbvaG8Mqc0NHIa LZVvnAReG388t3hya4btssH hiFA3gHwlHJQsmfznGhP5FU dkNGVitvurQAz4FGcyRUDfj RU6LZKnoEBdA0MbADHrEJ5i bex0EIF0HEuhYJHsNlD0XVB fxTHaGWIzdOweMMave829KI A0NqBsPUXkthT2SBfuDDInP 5IsN5UwAYtzNYP1NDNtVFTe UEBfIRRnIABcYXwheeQ5m1v zPUDrxWOxJEU1JEulgYJsPA YtVDPkMCekHbUDXuOvVnF9M UvwRQZzBqC5YJh6HGVMXxCb BqFkMnX9EzY9VkHhCCz6QBy 1ZPgDNpI5HVL0BZZ3SesxIY PmGySkYTl6RPDmLZqysSSaT RThRNTkTSuqQRefX85teAmp yR5aOpZzGSIXHnQOlH5aLHR oLlxwYXJcZnMyMCBSZWNlaX VxVMRcjbYao5ZyRZughtSbR WBjdIZiUDJmGLRmOTHdLZ91 F8QkufRuIHltWIMuIZQstA8 uEP54kOGqajHzguGiZlOhgf GaCYcuH3PxiNWnU9NppWixU JdlCVKgGrYrTOB3RSBaTDL9 EKGqQUZqiIP2mo2ffZHykCL dLSWeblPjj06kj8Cyd8JwyS KbiFQ0wCCkXTKsGuEgZLBjf UWcsN6aGSUln4BfiBfnSPfn bhBjLVNXdIJty7Yur0YoNYe vCYIgdc4bnS3jMVAnhW6edX mcLX1xPFt5pNLvOU9zQx4sZ NEyMUSuxCXjaE1tfgEprdTa zGNsKLHnzA3qvqN9SSTgBMB byMOuQJWbdtozAAWoM9MsmT phKQB8yNjdmMK1a0HiKZ48Y 36lAIW4nNV1DHZcy2RbEVos SW1ava2jlPZdvNgnyLBxy4m hpm9uNZ8rAQOoe5PrPWEfPF woj9xirmUkICKlGFriDS43d WZpZWQuICBSZXByZXNlbnRh eDp9FFOwMYM5fG3csiJqznV xy9YoxCl9ePBgGMiiMZMiNX KxOfynnP5cVEqeujJuVCvxC XIgQXJndWVsbGVzLCBQQSwg SUOqZNKGH7Ahe0ezrDkhl5K yxSErGD59OKPsdABjXAJ8KN 9ojRibLJW1 MICROSCOPIC p5rhhFXwJGAzjEO6AsSbUOZ DESCRIPTION (test code rg6lkr2GfgLJuiIQzDPuwxM = 3373) DkbjHfwy06zYQ5sT16OQ2pP YKsHtX8PZCommS3Pta6QXWn VXJeeNPhV353n5opk0ppxtA oaWA3sVrkFLRgsbhjHyE1GB nnZNAqlxzfWHq6BKrfQWFlz SL3FGLclDLgB9FtNEDlNG3l vlo9MCA0UXbjRRDsDgE8IJF htHYvRUJwmNwmGUvfp550UF Q5JgTtQQMnksCbfGxljJ6kL vEdWQORimStsVpmvPHmH5Ce sWDdhrInVP1vLOJsy49vDSv byFWgvClzVHvdfRE6WTGyNX IuJOqxOSujxSpcu9fvCN5tD U1fiPegxmIdB8tpbSFiv7Sz tb4lKb4yTBHazDXbNxJgnXO bOD0fX4Hmg9LhHW8ex14aET HcETSgGFEsTY2hJYVkuAMmd qHxr0CakC0oGyJbGKEpdh4= Gross assessment was [facility]'s performed at [facility], code = 2777) Department of Pathology, [address] [place] [address]047, Technical component [facility] was performed at ([facility], code = 2778) Department of Pathology, [address] [place] [address] 10751, Professional component [facility] was performed at ([facility], code = 2779) Department of Pathology, [address] [place] [address], [facility] HospitalT[facility]UE [id number] 14:57:34Surgical Pathology Report Case: [id number] Authorizing Provider: Jose Antonio Martínez Collected: 06/20/2022 11:46 AM MD Froilan Ordering Location: [facility] Received: 06/20/2022 01:27 PM SERVICES Pathologist: Veronica Mccoy MD Specimen: Stomach, PARTIAL GASTRECTOMY A. STOMACH, PARTIAL GASTRECTOMY: -OXYNTIC MUCOSA WITH NO SIGNIFICANT PATHOLOGIC ALTERATION -NEGATIVE FOR HELICOBACTER MICROOR GANISMS ON ROUTINE STAINS Signing Pathologist Direct Phone Line: [phone] signed by Veronica Mccoy MD on 07/03/2022 at 2:57 [id number] obesity,Body mass index 40.0-44.9, adult,Essential hypertension, malignantStomachA. Stomach.Received in formalin labeled the patient's name, accession number and "partial gastrectomy" is a 21.5 x 3.0 x 2.5 cm unoriented portion of stomach with a 21.5 cm linear staple line. The serosa is webster-pink, smooth and hyperemic. The specimen is opened to reveal a webster-pink, focally erythematous mucosa that displays normal rugal folds. No discrete lesions are identified. Oil Dispenser sections are submitted in A1-A2.NITHYA Villalta, HT (ASCP)No significant inflammation, intestinal metaplasia, dysplasia or malignancy is seen. No Helicobacter microorganisms are seen on routine stains. [facility], Department of Pathology, [address] [place] [address], [facility], [address] [place] [address], [facility], Department of Pathology, [address] [place] [address], Klwnxunjdu w/Microscopic + Reflex to [id number] 12:36:01 Test Item Value Reference Range Interpretation Comments Color, UA (test code Light Yellow = 5778-6) Clarity, UA (test Clear code = 5767-9) Specific [place], UA 1.014 1.001-1.035 (test code = 5811-5) pH, UA (test code = 6.5 5.0-8.0 5803-2) Protein, UA (test 10 mg/dL Negative A code = 17550-5) Glucose, UA (test Negative Negative code = 365) Ketones, UA (test 60 mg/dL Negative A code = 2514-8) Bilirubin, UA (test Negative Negative code = 05728-6) Blood, UA (test code Negative Negative = 78166-7) Nitrite, UA (test Negative Negative code = 5802-4) Leukocytes, UA (test Negative Negative code = 5799-2) Urobilinogen, UA 0.2 0.2-1.0 (test code = 29883-6) RBC, UA (test code = 0 See_Comment [Autom ated 46124-6) message] The system which generated this result transmit svetlana reference range : /HPF. The reference range was not used to interpret this result as normal/abnormal . WBC, UA (test code = 3 See_Comment [Autom ated 5821-4) message] The system which generated this result transmit svetlana reference range : /HPF. The reference range was not used to interpret this result as normal/abnormal . Bacteria, UA (test Rare code = 73976-7) Mucus (test code = Rare 8247-9) Squam Epithel, UA 5 See_Comment [Automate d (test code = 57378-8) messag e] The system which generated this result transmit svetlana reference range : /HPF. The reference range was not used to interpret this result as normal/abnormal . Specimen Source (test code = 2795) PEYTON (test code = PEYTON) Entry Table Operator ID - [auto] Lab Interpretation Abnormal (test code = 42516-0) [facility] UR[facility] [id number] 12:36:01 Test Item Value Reference Range Interpretation [...] = 516) SOURCE(BEAKER) (test code = 2795) Entry Table Operator ID - [auto]POC-Glucose [id number] 05:47:52 Test Item Value Reference Range Interpretation Comments POC-Glucose Meter (test 133 mg/dL 70-110 H : TE STED AT [facility] code = 1538) [address] [place], [address] 30: Entry Table Operator/Techni sandy ID = [id number] for SUSANMEÑO VALENZUELANIC A Lab Interpretation (test Abnormal code = 79481-0) [facility] [id number] 05:47:52 Test Item Value Reference Range Interpretation Comments POC-GLUCOSE METER 133 mg/dL 70-110 H : TESTED A T [facility] 6720 (BEAKER) (test code = ALICE Castillo [facility], 1538) [address]: Entry Table Operator/Techni sandy ID = [id number] for TURNER CHUA POCT-GLUCOSE [id number] 00:31:43 Test Item Value Reference Range Interpretation Comments POC-GLUCOSE METER 151 mg/dL 70-110 H : TESTED A T [facility] 6720 (BEAKER) (test code = [facility], 1538) 02185: Entry Table Operator/Techni sandy ID = [id number] for TURENR CHUA POCT-GLUCOSE [id number] 18:02:33 Test Item Value Reference Range Interpretation Comments POC-GLUCOSE METER 197 mg/dL 70-110 H : TESTED A T [facility] 6720 (BEAKER) (test code = [facility], 1538) 80398: Entry Table Operator/Techni sandy ID = [id number] for Jorge Luis Chris POCT-GLUCOSE [id number] 06:47:36 Test Item Value Reference Range Interpretation Comments POC-GLUCOSE METER 118 mg/dL 70-110 H : TESTED A T [facility] 6720 (BEAKER) (test code = [facility], 1538) 00133: Entry Table Operator/Techni sandy ID = [id number] for ED WARDS, VICKI POCT , [id number] 06:25:00 Test Item Value Reference Range Interpretation Comments Test Urine, POC (test code Negative = 5875753) Control line present?, POC (test Yes code = 4006953) Background clear?, POC (test code = Yes 0166583) UPT Cassette Lot #, POC (test code = 2071793 2057112) UPT Cassette Expiration Date, POC 43010728 (test code = 5980626) [facility] , [id number] 06:25:00 Test Item Value Reference Range Interpretation Comments Test Urine, POC (test code Negative = 0283638) Control line present?, POC (test Yes code = 6867096) Background clear?, POC (test code = Yes 8924937) UPT Cassette Lot #, POC (test code = 1240028 1448289) UPT Cassette Expiration Date, POC 43010728 (test code = 8272778) [facility] , [id number] 06:25:00 Test Item Value Reference Range Interpretation Comments Test Urine, POC (test code Negative = 7550745) Control line present?, POC (test Yes code = 0198212) Background clear?, POC (test code = Yes 7311666) UPT Cassette Lot #, POC (test code = 5042150 6302650) UPT Cassette Expiration Date, POC 43010728 (test code = 9731197) [facility], CHEST, 1 VIEW, NON [id number] 20:08:00Reason for exam:->CHEMICAL EXPOSUREperfect US materhorn whiteShould this be performed at the bedside?->No [facility] 1980 Sex: [...] MD on 06/19/2022 08:08 PMBUN AND CREATININE W/[id number] 14:39:37 Test Item Value Reference Range Interpretation Comments BLOOD UREA 23 mg/dL 7-21 H NITROGEN (BEAKER) (test code = 354) CREATININE 0.76 mg/dL 0.57-1.25 (BEAKER) (test code = 358) BUN/CREAT RATIO 30 For a normal individual on (BEAKER) (test a normal diet , the code = reference inter sneha for the 9566348203) mass ratio rang es between 12:1 and [...] not appl icable for dialysis patien ts Entry Table Operator ID - [id number] 14:39:35 Test Item Value Reference Range Interpretation Comments SODIUM (BEAKER) (test code = 381) 136 meq/L 136-145 POTASSIUM (BEAKER) (test code = 3.8 meq/L 3.5-5.1 379) CHLORIDE (BEAKER) (test code = 382) 108 meq/L 98-107 H CO2 (BEAKER) (test code = 355) 21 meq/L 22-29 L Entry Table Operator ID - [id number] 13:43:25 Test Item Value Reference Range Interpretation Comments HEMOGLOBIN (BEAKER) (test code = 13.1 GM/DL 11.2-15.7 410) Entry Table Operator ID - [id number] 09:17:18 Test Item Value Reference Range Interpretation Comments Scan Result (test code = See scanned report [id number]) PEYTON (test code = PEYTON) See scanned report [facility]UPEP2022-09-27 09:17:18 Test Item Value Reference Range Interpretation Comments Scan Result (test code = See scanned report [id number]) PEYTON (test code = PEYTON) See scanned report [facility]PEP2022-09-27 09:17:18 Test Item Value Reference Range Interpretation Comments Scan Result (test code = See scanned report [id number]) PEYTON (test code = PEYTON) See scanned report [facility] HospitalMISCELLANEOUS LAB [id number] 09:17:18 Test Item Value Reference Range Interpretation Comments SCAN RESULT (test code = See scanned report [id number]) See scanned reportRAD, SHOULDER, COMPLETE (MIN 2 VIEWS), [id number] 15:24:00Reason for exam:->right shoulder pain [facility] : 1980 Sex: FFINAL REPORT Exam: RAD, SHOULDER, COMPLETE (MIN 2 VIEWS), RIGHTDate: 03/17/2022 3:23 PM Indication:right shoulder painComparison: None DISCUSSION/IMPRESSION: AP internal/external views of the right shoulder was obtained. Osseous structures appear well mineralized.Osseous structures appear intact.Joint spaces are grossly preserved.Soft tissues are within normal limits.No radiopaque foreign bodies. Signed: Alexandru Azar MDReport Verified Date/Time: 03/17/2022 15:24:31 Reading Location: [facility] C013X Ortho Consult Reading Room , BRAIN, [id number] 13:30:00Unlisted Reason for Exam - Click Yes and Enter Reason Below->No [facility] : 1980 Sex: [...] Verified Date/Time: 03/17/2022 13:30:05 MR, SPINE, CERVICAL, [id number] 07:16:00Unlisted Reason for Exam - Click Yes and Enter Reason Below->No[facility] : 1980 Sex: [...] canal or neuroforaminal stenosis. Signed: Bang Rodriguez [facility] Verified Date/Time: 03/17/2022 07:16:46 VITAMIN [id number] 13:00:00 Test Item Value Reference Range Interpretation Comments VITAMIN B-12 343 pg/mL 200-1100 Please Note: A lthough the (test code = reference range for akasdvjM26 2132-9) is 200-1100 pg/ mL, it has been reported that b etween5 and 10% of patients wit h values between 200 and 400pg/mL may experience neur opsychiatric and hematologic abnormalities due to occult B 12 deficiency; less than 1%of patients with values above 40 0 pg/mL will have symptoms. Performed at: [facility] [address] [address] MIGUELITO DIAZ MD [facility] CenterPYRUVIC [id number] 13:00:00 Test Item Value Reference Range Interpretation Comments PYRUVIC ACID (test 0.75 mg/dL 0.30-1.50 Performed at: AMD code = 2905-8) [facility] PATR JAY REINOSO MD,PHD [facility] CenterURINALYSIS W/ REFLEX URINE [id number] 18:29:33 Test Item Value Reference Range Interpretation [...] = 1521) SOURCE(BEAKER) (test code = 2795) Entry Table Operator ID - [auto]Entry Table Operator ID - techPROTEIN ELECTROPHORESIS, SERUM WITH REFLEX TO [id number] 14:31:04 Test Item Value Reference Range Interpretation [...] electrophoretic (BEAKER) (test code pattern. = 2615) [id number] Maulik Cazares M.D. 9 (BEAKER) (test (electonic signature) code = 2616) PROTEIN TOTAL 6.0 gm/dL 6.0-8.3 SERUM, SPEP (BEAKER) (test code = 2660) Clinical Manager Professional Development - SFOperator ID - BSOperator ID - ADMIMMUNOFIXATION + PROTEIN ELECTROPHORESIS - [id number] 08:00:00 Test Item Value Reference Range Interpretation Comments PROTEIN TOTAL (test code 6.9 g/dL 6.1-8.1 = 2885-2) INTERPRETATION, GINA (test N ormal pattern. No code = 80750-6) monoclonal p roteins detected. ALBUMIN ELP (test code = 4 g/dL 3.8-4.8 2862-1) ALPHA 1 (test code = 0.4 g/dL 0.2-0.3 H 2865-4) ALPHA 2 (test code = 0.9 g/dL 0.5-0.9 2868-8) BETA-1 (test code = 0.5 g/dL 0.4-0.6 45411-4) BETA-2 (test code = 0.4 g/dL 0.2-0.5 02320-4) GAMMA GLOBULIN (test code 0.9 g/dL 0.8-1.7 = 2874-6) INTERPRETATION SPE (test Al pha-1 globulin code = 47556-2) increase not ed. Performed at: [facility] [address] [facility] [place] [address] ALLYSON DIAZ MD Lab Interpretation (test Abnormal code = 55599-1) [facility] CenterBASI METABOLIC [id number] 05:59:37 Test Item Value Reference Range Interpretation [...] De scription 1092) sq m Result G1 Norm al or high >=90 G2 Mildly decreased 60-89 [...] not appl icable for dialysis patien ts Entry Table Operator ID - BSHEPATIC FUNCTION [id number] 05:59:37 Test Item Value Reference Range Interpretation [...] Specimen slightly (test code = 347) hemolyzed Entry Table Operator ID - [id number] 05:59:36 Test Item Value Reference Range Interpretation Comments MAGNESIUM (BEAKER) 1.9 mg/dL 1.6-2.6 Specimen slightly (test code = 627) hemolyzed Entry Table Operator ID - BSVITAMIN [id number] 04:25:50 Test Item Value Reference Range Interpretation Comments VITAMIN B12 (BEAKER) (test code = 515 pg/mL 213-816 774) Entry Table Operator ID - ALANA MTSH/FREE T4 IF [id number] 04:25:50 Test Item Value Reference Range Interpretation Comments THYROID STIMULATING HORMONE 1.504 uIU/mL 0.350-4.940 (BEAKER) (test code = 772) Entry Table Operator ID - ALANA MCBC W/PLT COUNT & AUTO [id number] 03:33:10 Test Item Value Reference Range Interpretation [...] SARS-Co V-2 (test code = target nucleic 62446-7) acids are not detected in thi s [...] rapid, real-jesse e RT-PCR test intended for e qualitative detection of nucleic acid fr om SARS-CoV-2 in a nasopharyngeal swab specimen [facility] from individual s suspected of COVID-19 by [...] revoked sooner. Fact Sheet for Healthcare Providers: https://www.[employer]/Documents/Xp ert%20Xpress%20SAR S%20CoV-2/Fact%20S heets/302-3802%20S ARS-COV-2%20HEALTH CARE%20PROVIDERS%2 0FACT%20SHEET.pdf Fact Sheet for Healthcare Patients: https://www.[employer]/Documents/Xp ert%20Xpress%20SAR S%20CoV-2/Fact%20S heets/302-3801%20S ARS-COV-2%20PATIEN T%20FACT%20SHEET.p df Lab Interpretation Normal (test code = 79707-7) [facility]2022-03-14 23:41:10 Test Item Value Reference Range Interpretation Comments SARS-COV2/RT-PCR Negative Negative The SARS-Co V-2 target (test code = nucleic acids a re not 4730690) detected in thi s specimen. Negative result [...] revoked sooner. Fact Sheet for Healthcare Providers: https://www.[employer]/Documents/Xpert%20Xpress%20SARS%20CoV-2/Fact%20Sheets/302-3802%21HPZH-ZKE-0%20 HEALTHCARE%20PROVIDERS%20FACT%20SHEET.pdf Fact Sheet for Healthcare Patients: https://www.[employer]ar[employer]/Documents/Xpert%20Xp ress%20SARS%20CoV-2/Fact%20Sheets/302-3801%83QVSE-PWU-2%20PATIENT%20FACT%20SHEET .pdfHCG, QUANTITATIVE, [id number] 19:05:54 Test Item Value Reference Range Interpretation Comments GONADOTROPIN, CHORIONIC (HCG) QUANT < mIU/mL 0-10 (BEAKER) (test code = 649) Non- Females: <10 mIU/mL Females: Gestation Age Reference Range(mIU/mL) 0.2-1 Week 5-50 1-2 Weeks 50-500 2-3 Weeks 100-5,000 3-4 Weeks 500-10,000 4-5 Weeks 1,000-50,000 5-6 Weeks 10,000-100,000 6-8 Weeks 15,000- 200,000 2-3 Months 10,000-100,000 Entry Table Operator ID - BSCOMPREHENSIVE METABOLIC PANEL 2022-03-14 18:54:30 [...] not appl icable for dialysis patien ts Entry Table Operator ID - [id number] 18:37:27 Test Item Value Reference Range Interpretation Comments PROTIME (BEAKER) (test 13.8 seconds 11.9-14.2 code = 759) INR (BEAKER) (test 1.08 See_Comment [Automat ed code = 370) message] The sy stem which generated this [...] mechanical heart valves.CBC W/PLT COUNT & AUTO [id number] 18:28:24 Test Item Value Reference Range Interpretation [...] 0-1 PERCENT (BEAKER) (test code = 2801) [id number] 18:08:05 Test Item Value Reference Range Interpretation Comments PHOSPHORUS (BEAKER) 3.0 mg/dL 2.3-4.7 Specimen slightly (test code = 604) hemolyzed CT, BRAIN, WITHOUT IV [id number] 18:03:00 [facility] 1980 Sex: FFINAL REPORT [...] No acute intracranial findings Signed: Bang Rodriguez MDReport Verified Date/Time: 03/07/2022 18:03:33 [id number] 17:53:23 Test Item Value Reference Range Interpretation Comments MAGNESIUM (BEAKER) 1.9 mg/dL 1.6-2.6 Specimen slightly (test code = 627) hemolyzed COMPREHENSIVE METABOLIC [id number] 17:53:17 Test Item Value Reference Range Interpretation [...] eGF R is based on the CKD-EPI 2021 equation that d oes not use a race coefficientEsti mated GFR is not as accur ate as Creatinine Magui anne in predicting glom erular filtration rate . Estimated GFR is not appl icable for dialysis patien ts CBC W/PLT COUNT & AUTO [id number] 17:34:47 Test Item Value Reference Range Interpretation [...] PERCENT (BEAKER) (test code = 2801) [place], [id number] 11:31:00Reason for Exam:->gastroesophageal reflux disease unspec whether eso [facility] 1980 Sex: FFINAL REPORT [...] hiatal hernia upon proneimaging. Signed: Bradley Healy [facility] Verified Date/Time: 01/15/2022 11:31:49 CT, [id number] 21:58:00Unlisted Reason for Exam - Click Yes and Enter Reason Below->YesUnlisted Reason for Exam->potentially UC flareIs this for enterography?->NoWill this procedure require oral contrast?->No [facility] : 1980 Sex: [...] Case MDReport Verified Date/Time: 10/03/2021 21:58:27 SARS-COV2/RT-PCR ([facility])2021-10-03 21:02:26 Test Item Value Reference Range Interpretation Comments SARS-COV2/RT-PCR Negative Negative The SARS-Co V-2 target (test code = nucleic acids a re not 1857060) detected in thi s specimen. Negative result [...] revoked sooner. Fact Sheet for Healthcare Providers: https://www.[employer] m/Documents/Xpert%20Xpress%20SARS%20CoV-2/Fact%20Sheets/3023802%53QVCM-LLA-5%20 HEALTHCARE%20PROVIDERS%20FACT%20SHEET.pdf Fact Sheet for Healthcare Patients: https://www.[employer]/Documents/Xpert%20Xp ress%20SARS%20CoV-2/Fact%20Sheets/3023801%41GOWN-FNW-5%20PATIENT%20FACT%20SHEET .pdfB-TYPE NATRIURETIC FACTOR (BNP)2021-10-03 21:01:58 Test Item Value Reference Range Interpretation Comments B-TYPE NATRIURETIC PEPTIDE (BEAKER) < pg/mL 0-100 (test code = 700) Entry Table Operator ID - BSHCG, QUANTITATIVE, [id number] 21:01:53 Test Item Value Reference Range Interpretation Comments GONADOTROPIN, CHORIONIC (HCG) QUANT < mIU/mL 0-10 (BEAKER) (test code = 649) Non- Females: <10 mIU/mL Females: Gestation Age Reference Range(mIU/mL) 0.2-1 Week 5-50 1-2 Weeks 50-500 2-3 Weeks 100-5,000 3-4 Weeks 500-10,000 4-5 Weeks 1,000-50,000 5-6 Weeks 10,000-100,000 6-8 Weeks 15,000- 200,000 2-3 Months 10,000-100,000 Entry Table Operator ID - BSHIGH SENSITIVITY TROPONIN I 2021-10-03 20:36:14 Test Item Value Reference Range Interpretation Comments HIGH SENSITIVITY < pg/ml See_Comment [Automated message] TROPONIN I (test code = The system which 4110057) generated this result transmitted ref erence range: <=17. Th e reference range was not used to interpr et this result as normal/abnormal . Entry Table Operator ID - BSThe HAZARDOUS MATERIALS HANDLER STAT High Sensitivity Troponin-I results should be used in conjunctionwith other diagnostic information such as ECG, clinical observations and information, and patient symptoms to aid in the diagnosis of ID.[id number] 20:31:56 Test Item Value Reference Range Interpretation Comments LIPASE (BEAKER) (test code = 749) 17 U/L 8-78 Entry Table Operator ID - [id number] 20:31:55 Test Item Value Reference Range Interpretation Comments MAGNESIUM (BEAKER) (test code = 2.0 mg/dL 1.6-2.6 627) Entry Table Operator ID - [id number] 20:31:55 Test Item Value Reference Range Interpretation Comments PHOSPHORUS (BEAKER) (test code = 3.2 mg/dL 2.3-4.7 604) Entry Table Operator ID - BSCOMPREHENSIVE METABOLIC [id number] 20:31:54 Test Item Value Reference Range Interpretation [...] S NOT APPLICABLE FOR DIALYSIS PATIEN TS. Entry Table Operator ID - BSLACTIC ACID, [id number] 20:28:31 Test Item Value Reference Range Interpretation Comments LACTATE BLOOD VENOUS 0.65 mmol/L 0.50-2.20 Specime n slightly (2) (BEAKER) (test hemolyzed code = 1974) Entry Table Operator ID - BSURINALYSIS W/ REFLEX URINE [id number] 20:21:36 Test Item Value Reference Range Interpretation [...] = 1585) Rare SOURCE(BEAKER) (test code = 2795) Entry Table Operator ID - [auto]Entry Table Operator ID - techCBC W/PLT COUNT & AUTO [...] (test code = 2801) RAD, CHEST, 2 [id number] 19:36:00Reason for exam:->SHORTNESS OF BREATHReason for exam:->ABDOMINAL PAINReason for exam:->cough [facility] : 1980 Sex: [...] Date/Time: 10/03/2021 19:36:46 MR, PELVIS, WITHOUT IV [id number] 08:44:00Evaluate for sacroiliitisUnlisted Reason for Exam - Click Yes and Enter Reason Below->YesUnlistedReason for Exam->Low back pain, unspecified back pain laterality, unspecified chronicity, unspecified whether sciatica present [facility] : 1980 Sex: FFINAL REPORT MRI of the pelvis/sacroiliac joints without contrast. History: Lowback pain. Pain worse with sitting. History of [...] bone marrow edema to suggest sacroiliitis. If indicated MRI of the lumbar spine may be of benefit. Signed: Ab Rogers MDReport Verified Date/Time: 11/01/2020 08:44:21 [facility] [address] [place], [place] [address] SARS-COV2/RT-PCR ([facility])2020-07-23 08:04:00 Test Item Value Reference Range Interpretation Comments SARS-COV2/RT-PCR (test Negative Not Detected, Negative, code = 5200841) See external report for linked test SARS-COV-2 PERFORMING LAB [facility] (test code = 4682327) Negative result for this test determines that [...] the Sellers SARS-CoV-2 assay.Fact Sheet for Healthcare Providers:https://www.[employer]/louis/RT_SAR M-ItC-7_TZS_Ynjz_Gtjux_19-697697.pdfFact Sheet for Healthcare Patients:https://www.[employer]/s al/CZ_AJFU-ZzX-3_Sztjuow_Chqa_Trqcq_ID_21-084690G8.pdfPerforming Laboratory:[facility] [place] [address] TISSUE [id number] 11:46:00Surgical Pathology Report Case: [id number] Authorizing Provider: Sydney Gonzalez MD Collected: 03/03/2020 02:37 PM Ordering Location: [facility] Endoscopy Received: 03/04/2020 08:23 AM Services [...] OR MALIGNANCY. Signing Pathologist Direct Phone Line: [phone] signed by Anel Rincon MD on 03/07/2020 at 11:46 [id number] X 13, [phone] X 2Screening for viral disease, ulcerative proctitis [...] evaluated Immunohistochemistry technical testing was performed at [facility], Pathology Laboratorywhere it was developed and its [...] qualified to perform high complexity clinical laboratory testing.[facility], Department of Pathology, [address] [place] [address], Tel [facility], [address] [place] [address], XywjwhCommunity Medical Center-[facility], Department of Pathology, [address] [place] [address], Qizsk 2 [id number] 05:43:51 No acute intrathoracic abnormality. Preliminary Report [...] reviewed this study and agree with the abovereport.[facility] BrookD-[id number] 04:42:00 Test Item Value Reference Interpretation Comments Range D-DIMER (test code = See_Comment H [Autom ated 1445907948) message] The system which generated this result [...] diagnosis. Lab Interpretation Abnormal (test code = 12285-4) [facility] BrookCOVID-19 (ID NOW RAPID TESTING)2019-12-22 04:20:00 Test Item Value Reference Range Interpretation Comments SARS-CoV-2 Rapid ID NOW Not Detected Not Detected (test code = 90646-8) PEYTON (test code = PEYTON) ID NOW COVID-19 Assay is an isothermal nucleic acid amplification test intended for the qualitative detection of nucleic acid from SARS-CoV-2 viral RNA in nasopharyngeal (UMBRELLA CUTTER) specimens. It is used under Emergency Use [...] indicated. Lab Interpretation Normal (test code = 44037-9) [facility] Metabolic Panel (NA, K, CL, CO2, GLUCOSE, BUN, CREATININE, CA)2019-12-22 04:17:00 Test Item Value Reference Range Interpretation Comments NA (test code = 138 mmol/L 135-145 7685957808) K (test code = 5.3 mmol/L 3.5-5 H Slight 8841755644) hemolysis CL (test code = 106 mmol/L 98-108 9725174564) CO2 TOTAL (test code 23 mmol/L 23-31 = 9972108677) AGAP (test code = 2-16 6273027361) BUN (test code = 23 mg/dL 7-23 Slight 5335192491) hemolysis GLUCOSE (test code = 100 mg/dL 70-110 6038376334) CREATININE (test code 0.95 mg/dL 0.5-1.04 = 4086391282) CALCIUM (test code = 9.2 mg/dL 8.6-10.6 5461095151) eGFR Calculation mL/min/1.73m2 (Non-) (test code = 2096356664) eGFR Calculation mL/min/1.73m2 () (test code = 1324408682) PEYTON (test code = PEYTON) Association of [...] tests). Lab Interpretation Abnormal (test code = 73534-6) [facility] Function Panel (ALB, T.PRO, BILI T, BU/BC, ALT, AST, ALK PHOS)2019-12-22 04:17:00 Test Item Value Reference Range Interpretation Comments TOTAL BILI (test code = 0.6 mg/dL 0.1-1.7 0986142418) BILI UNCON (test code = 0.5 mg/dL 0.1-1.3 3753247519) BILI CONJ (test code = 0.0 mg/dL 0-0.3 9905955935) T PROTEIN (test code = 8.1 g/dL 6.3-8.2 6398827333) ALBUMIN (test code = 4.4 g/dL 3.5-5 2195434685) ALK PHOS (test code = 80 U/L 34-122 Slight hemolysis 1940033124) ALTv (test code = 1742-6) 25 U/L 5-35 AST(SGOT) (test code = 38 U/L 13-40 Sligh t hemolysis 2115386683) Lab Interpretation (test Normal code = 28768-8) [facility] BrookTroponin [id number] 04:17:00 Test Item Value Reference Range Interpretation Comments TROPONIN I (test <0.012 See_Comment [Automated code = 7629755653) message] The system which generated this result [...] ? Lab Interpretation Normal (test code = 19572-6) [facility] BrookN-TERMINAL [id number] 04:17:00 Test Item Value Reference Range Interpretation Comments NT-proBNP (test code 201 pg/mL See_Comment H [Autom ated = 2112281840) message] The system which generated this result transmitted reference range : <=125. The reference range was not used to interpret this result as normal/abnormal . PEYTON (test code = PEYTON) Biotin has been reported to cause a negative bias, interpret results relative to patient's use of biotin. Lab Interpretation Abnormal (test code = 03157-1) [facility] BrookUrinalysis2020-06-30 04:01:00 Test Item Value Reference Range Interpretation Comments APPEARANCE (test code = Hazy Clear A 5707612152) COLOR (test code = Yellow Yellow 8337764463) PH (test code = 4.8-8.0 4334161469) SP GRAVITY (test code = 1.003-1.030 1566252959) GLU U QUAL (test code = Normal Normal 9173440173) BLOOD (test code = 2+ Negative A 6208574271) KETONES (test code = Negative Negative 2661445018) PROTEIN (test code = Negative Negative 2887-8) UROBILIN (test code = Normal Normal 5225928505) BILIRUBIN (test code = Negative Negative 4659561199) NITRITE (test code = Negative Negative 6286702843) LEUK SOLOMON (test code = Negative Negative 6231494078) RBC/HPF (test code = See_Comment H [Autom ated message] 6615170122) The system [employer] generated this result transmitted ref erence range: 0 - 3 HP F. The reference range was not used to int erpret this result as normal/abnormal . WBC/HPF (test code = See_Comment [Autom ated message] 3189065538) The system [employer] h generated this result transmitted ref erence range: 0 - 5 HP F. The reference range was not used to int erpret this result as normal/abnormal . BACTERIA (test code = Few Negative A 7219661533) MUCOUS (test code = Slight Negative LPF A 7391780899) SQ EPITH (test code = HPF 9752063945) Lab Interpretation (test Abnormal code = 82479-4) [facility] WITH [id number] 03:54:00 Test Item Value Reference Range Interpretation Comments WBC (test code = See_Comment [Automated 0090-2) message] The sy stem which generated this result transmitted reference range : 4.30 - 11.10 10*3/?L. The reference range was not used to interpret this result as normal/abnormal . RBC (test code = See_Comment [Automated 249-8) message] The sy stem which generated this [...] RDW-SD (test code = 42.8 fL 39-49.9 77035-2) RDW-CV (test code = 13.1 % 12-15.5 788-0) PLT (test code = See_Comment [Automated 777-3) message] The sy stem which generated this result transmitted reference range : 166 - 358 10*3/ ?L. The reference r skye was not used to interpret this result as normal/abnormal . MPV (test code = 9.4 fL 9.5-12.9 L 23726-9) NRBC/100 WBC (test See_Comment [Automat ed code = 0383882311) message] The system which generated this result transmitted reference range : 0.0 - 10.0 /100 WBCs. The refer ence range was not u sed to interpret th is result as normal/abnormal . NRBC x10^3 (test code <0.01 See_Comment [Auto mated = 2563508708) message] The s ystem which generated this result transmitted reference range : 10*3/?L. The reference range was not used to interpret this result as normal/abnormal . GRAN MAT (NEUT) % 59.8 % (test code = 770-8) IMM GRAN % (test code 0.50 % = 4978030335) LYMPH % (test code = 30.8 % 736-9) MONO % (test code = 7.9 % 5905-5) EOS % (test code = 0.4 % 713-8) BASO % (test code = 0.6 % 706-2) GRAN MAT x10^3(ANC) 6.50 10*3/uL 1.88-7.09 (test code = 9468659343) IMM GRAN x10^3 (test 0.05 10*3/uL 0-0.06 code = 2708746648) LYMPH x10^3 (test code 3.34 10*3/uL 1.32-3.29 H = 731-0) MONO x10^3 (test code 0.86 10*3/uL 0.33-0.92 = 742-7) EOS x10^3 (test code = 0.04 10*3/uL 0.03-0.39 711-2) BASO x10^3 (test code 0.06 10*3/uL 0.01-0.07 = 704-7) Lab Interpretation Abnormal (test code = 83024-1) [facility] BrookPOWY [id number] 03:21:00 Test Item Value Reference Range Interpretation Comments POCT PREG (test code = 1605) negative On board controls acceptable with yes C Line (test code = 3574) POCT PREG LOT # (test code = 3575) [id number] POCT PREG TEST DATE (test 01/21/2021 code = 3576) Lab Interpretation (test code = Normal 40822-0) [facility] BrookXR HIPS 2 VW [id number] 18:46:31 Mild hip osteoarthrosis No acute osseous abnormality. EXAM: XR HIPS 2 VW RIGHT HISTORY: 39 years-old Female pain with movement COMPARISON: None. FINDINGS: No acute fracture or dislocation. mild hip joint space narrowing andsuperior acetabular sclerosis with marginal osteophytes are noted. No softtissue abnormality is seen. Kymb, Radiant Results Inft User - 08/20/2019 12:47 PM CSTEXAM: XR HIPS 2 VW RIGHTHISTORY: 39 years-old Female pain with movement COMPARISON: None.FINDINGS:No acute fracture or dislocation. mild hip joint space narrowing andsuperior acetabular sclerosis with marginal osteophytes are noted. No softtissue abnormality is seen.IMPRESSIONMild hip osteoarthrosisNo acute osseous abnormality.[facility] BrookPost Op Promis 29 [id number] 13:33:12 Test Item Value Reference Range Interpretation Comments Pain Interference: (test code = Pain 73.7 1 N Interference:) Pain Intensity: (test code = Pain 53.7 1 N Intensity:) Physical Function: (test code = 21.3 1 N Physical Function:) Satisfaction Role: (test code = 35.6 1 N Satisfaction Role:) [facility] Shoulder wo contrast [id number] 11:13:00PROCEDURE INFORMATION:Exam: MR Right Upper Extremity Joint [...] the proximalhumerus.Meliton Rush MD On 04/24/2019 13:45:44; [id number]--Ofjh by: Meliton Rush MDDictated Date/time: 04/24/19 13:45Electronically Signed by: Meliton Rush MD 04/24/1913:45FINAL REPORTUT [facility]] CULTURE, URINE, [id number] 12:00:00 Test Item Value Reference Range Interpretation Comments CULTURE (test code = See Comment CULTURE , URINE, CULTURE) ROUTINE MICRO N UMBER: [id number] TEST S TATUS: FINAL SPECIMEN SOURCE: URINE, CLEAN CA [facility] SPECIMEN QUALIT Y: ADEQUATE RESULT : Multiple organi sms present, each l ess than 10,000 CFU /mL. These organisms , commonly found on external and in ternal genitalia, are considered to be colonizers. No further testing perform ed. [facility][] DRUG SCREEN,COMPREHENSIVE (URINE)2019-02-11 14:49:00 Test Item [...] FOR SPECIFICS ONWHICH DRUGS A RE TESTED. [facility] Abdomen Doppler [id number] 11:02:00Patient Name: TODD GASPAROB: 1980; Age: 38 years y/o FemaleMR: [id number] ULTRASOUND with Doppler studiesHistory: splenomegaly Technique: The [...] nephrectomy.3. Normal Doppler studies as described above.SL: [id number]--Eelc by: Kwaku Hedrick MDDictated Date/time: 02/10/19 15:13Ele ctronically Signed by: Kwaku Hedrick MD 02/10/1915:20FINAL REPORTUT [facility]] CALPROTECTIN, [id number] 14:43:01 Test Item Value Reference Range Interpretation Comments Calprotectin (test 30 ug/g 0-120 Concentra tion code = Calprotectin) Interpr etation Follow-Up<16 - 50 ug/g Normal None>50 -120 ug/g Borderline Re-e valuate in 4-6 weeks >120 ug/g Abnormal Repeat as clinically indicatedPerfor med At: [facility] [place], [place] [address]Hvmjaz ra Shanthi SANDOVAL Ph:[phone] [place] [facility]iciansXRAY Clavicle Bilateral [id number] 14:03:00Clinical Indication: - M89.8X1 Other specified disorders of bone, shoulder,M79.18 Myalgia, other site, M25.50 Pain in unspecified joint, M94.0 Chondrocostal junction syndrome [Tietze]; clavicle pain for 5 daysComparison: NoneTECHNIQUE: AP and axial views of the bilateral claviclesFINDINGS: No acute fracture or malalignment is identified. Thesternoclavicular joints are within normal limits as are the acromioclavicularjoints.No soft tissue abnormality is identified.IMPRESSION: No acute abnormality.SL:[id number]--Lytf by: Oj Boswell MDDictated Date/time: 01/30/19 14:33Electronically Signedby: Oj Boswell MD 01/30/1914:34FINAL REPORTUT [facility]] HEPATIC FUNCTION [id number] 14:45:01 Test Item Value Reference Range Interpretation [...] abase of pediatric refer ence intervals to [facility] [place] analyzer (Clinical Biochemistry 46 (2013): 1764-2129). [facility] has not internally validated these reference ranges and therefore they should be used only in e context of a thoroughcl inical assessment. AST (test code = 11 u/l 0-37 55195-6) ALT (test code = 20 u/l 0-65 1743-4) Globulin (test code 3.6 g/dl 2.7-4.2 = 14736-9) A/G Ratio (test 1.1 0.7-1.6 code = 1759-0) [facility][H] Celiac Pnl w/Rflx Endomy Ab [id number] 14:45:01 Test Item Value Reference Range Interpretation Comments IgA Lvl (test code = 2458-8) 234.0 mg/dl 68.0-378.0 Gliadin (Deamidated Peptide)IgA <0.2 <=14.9 Ab (test code = 56172-6) Gliadin (Deamidated Peptide)IgG 0.6 U/ml <=14.9 Ab (test code = 52850-0) Tissue Transglutaminase (tTG) IgA <0.5 <=14.9 (test code = 16141-0) Tissue Transglutaminase (tTg) IgG <0.8 <=14.9 (test code = 96064-7) [facility][H] LUNDBERG [id number] 14:45:01 Test Item Value Reference Range Interpretation Comments Bili Total (test code 0.5 mg/dl 0-1 = 1975-2) ALT (test code = 20 u/l 0-65 1743-4) AST (test code = 11 u/l 0-37 49993-4) Fibrosis Score (test 0.04 0.00-0.21 code = [...] Macroglob (test 224 mg/dl 110-276 code = 55977-2) Haptoglobin; Above 208 mg/dl 34-200 High Threshold (test code = 75710-0) Apolipoprotein A-1 170 mg/dl 116-209 (test code = Apolipoprotein A-1) GGT (test code = 18 {iu/l} 0-60 2324-2) Chol (test code = 137 mg/dl 124-193 0461-3) Glucose Lvl (test 96 mg/dl 65-99 Adult [...] iagnosis of LUNDBERG.Fibrosi s marker: In a st udy of 171 Non-Alcohol ic FattyLiver Dise ase [...] q uestions regarding this report please contact X-1 service at . Referenc es:1. Latanya Bradshaw et al. Diagnostic Valu e of Biochemical Mar kers (FibroTest) for the prediction of L iver Fibrosis in pat ients with Non-Alcoho lic Fatty Liver Dis ease. [facility] o[facility] 2006; 6:6.2. Keyshawn Bates. et al. The Diagnostic Valu e of Biomarkers (Remigio miko Test) for the Prediction of L iver Steatosis. Comp arative Hepatol. 2005; 4:10.3. Keyshawn Mckeon, Suri Coyne, et al. Diagnostic valu e of biochemical mar kers (LUNDBERG TEST) for the prediction of n on alcohol steato hepatitis in pa tients with non- alco holic fatty liver dis ease. [facility]MC Gastroenter ology 2006; 6:34 doi:10.1186/147 1-230X-6 -34.Performed A t: [facility] [id number] [place], [place] [id number] susana Mkai MD Ph:[phone] [facility]] CK [id number] 10:21:01 Test Item Value Reference Range Interpretation [...] [facility] (test code = Creatine Aaron [address] Kinase BB) Bld[address] BRUNA Gallardo [id number] h CHRISTIE SANDOVAL Ph:[phone] rformed At: HD [facility] [address] [place], [place] [id number] Kyle L MD Ph:[phone] [facility][H] Quantiferon Incubationa w/ Reflex to TB Gold [id number] 10:21:01 Test Item Value Reference Range Interpretation Comments Quantiferon Incubation Performed At: H D Incubation (test performed. [facility] code = Quantiferon [address] Incubation) [place], [place] [id number] judith Domínguez MD Ph:[phone] Quantiferon - TB Negative Negative Performed A t: BN Gold Plus (test [facility] code = Quantiferon [facility] n1447 - TB Gold Plus) [place], [place] [id number] ra Shanthi SANDOVAL Ph:[phone] [facility][H] Quantiferon Incubationa w/ Reflex to TB Gold [id number] 10:21:01 Test Item Value Reference Range Interpretation Comments Quantiferon Criteria Comment The Vasquez ntiFERON-TB (test code = Gold Plus resul t is Quantiferon determined Criteria) bysubtracting t he Nil value from [facility] er TB antigen (Ag) tu be.The mitogen [...] BN code = Mitogen - [facility] NIL) [address] [id number] ra Shanthi SANDOVAL Ph:[phone] [facility] Shoulder series [id number] 10:49:00EXAM: XR SHOULDER 3 VIEWSDATE: 01/13/2019 10:49 [...] 01/13/1913:49FINAL REPORTUT [facility]iciansX[facility] Spine lumbar AP lateral [id number] 10:49:00EXAM: XR LUMBAR SPINE 2 VIEWSDATE: 01/13/2019 [...] [facility]icians[facility] Spine cervical 2 or 3 view [id number] 10:49:00EXAM: XR CERVICAL SPINE 3 VIEWSDATE: 01/13/2019 [...] 17:50Electronically Signed by: Audie Pardo MD 01/13/1917:50FINAL REPORT [facility] Knee 1-2 Views Bilateral [id number] 10:48:00EXAM: XR BILATERAL KNEE 2 VIEWSDATE: 01/13/2019 [...] bilateral w pelvis and both lat hips [id number] 10:48:00EXAM: XR BILATERAL HIP 2 VIEWS AND [...] MD 01/13/1913:37FINAL REPORT[facility]icians[facility] Chest 2 views [id number] 10:47:00EXAM: XR CHEST 2 VIEWSDATE: 01/13/2019 10:47 CDTINDICATION: - R06.00 Dyspnea, unspecifiedCOMPARISON: None.TECHNIQUE: PA and lateral chest radiographsFINDINGS:Lines and tubes: None.Lungs and pleura: Low l enio volumes with accentuated vascular markings andbibasilar atelectasis.Prominent right basilar opacities.The right mid to upper lung zone and left lung are clear.No pleural effusions or definite pneumothorax.Heart and mediastinum: The cardiac silhouette is normal for technique. Themediastinal contours are normal. Bones: No acute bony abnormality is identified.Soft tissues: Unremarkable.IMPRESSION: *Low lung volumes.* Right basilar opacities may represent a combination of atelectasis orpossible infection in the correct context.* No other consolidations. Consider repeat PA/lateral chest x-ray in 4-8 weeksto reassess.--Read by: Luis A Schumacher MD PHDDictated Date/time: 01/13/19 12:49Electronically Signed by: Luis A Schumacher MD PH 01/14/1912:50FINAL [facility]PORT[facility][QL[facility]] URINALYSIS, COMPLETE W/REFLEX TO [id number] 10:10:01 Test Item Value Reference Range Interpretation Comments UA Color (test code = 5778-6) Jhoan UA Turbidity; Abnormal (test code Marked Clear A = 60591-7) UA Spec Grav; Above High Threshold 1.032 <=1.030 (test code = 5810-7) UA pH (test code = 5803-2) 5.0 5.0-8.0 UA Protein; Abnormal (test code = 30 mg/dl Negative A 75451-9) UA Glucose (test code = 89814-2) Negative Negative UA Ketones; Abnormal (test code = Trace Negative A 84838-9) UA Bili (test code = 5770-3) Negative Negative UA Blood; Abnormal (test code = Large Negative A 5794-3) UROBILINOGEN (test code = 53653-1) <=1.0 0.1-1.0 UA Nitrite (test code = 5802-4) Negative Negative UA Leuk Est (test code = 5799-2) Negative Negative UA RBC; Above High Threshold (test 10 {/HPF} 0-2 code = 38106-1) UA WBC; Above High Threshold (test 8 {/HPF} 0-5 code = 44582-5) UA Bacteria (test code = 39199-3) Few None Seen UA Mucus; Abnormal (test code = Many None Seen A 8247-9) UA Sq Epi (test code = 69412-7) Occasional Few [facility][QH] PROTEIN, TOTAL W/CREAT, RANDOM [id number] 10:10:01 Test Item Value Reference Range Interpretation Comments U Creatinine (test 303.00 mg/dl No establ ished code = 2161-8) reference ran ge. Urine Protein Level 51.5 mg/dl No estab lished (test code = 2888-6) referen ce ranges. U Prot/Creat (test 0.17 code = 2890-2) [facility][QH] HEPATITIS B SURFACE ANTIGEN W/REFL [id number] 10:10:01 Test Item Value Reference Range Interpretation Comments Hepatitis B Surface Antigen (test Negative Negative code = 5195-3) [facility] HEPATITIS C [id number] 10:10:01 Test Item Value Reference Range Interpretation Comments Hepatitis C Antibody (test code = Negative 66348-2) [facility][Q] CYCLIC CITRULLINATED PEPTIDE (CCP) AB (IGG)2019-01-13 10:10:01 Test Item Value Reference Range Interpretation Comments Cyclic Citrulline Peptide Antibody <0.5 <=2.9 (test code = 43256-7) [facility][O] Urine Dipstick (In Office)2018-12-29 16:04:00 Test Item Value Reference Range Interpretation Comments Glucose (test code = Glucose) 100 MG/dL LEUKOCYTES (test code = LARGE LEUKOCYTES) NITRITE (test code = 61403-9) POSITIVE UROBILINOGEN (test code = 4.0 E.U./dL 28770-7) PROTEIN (test code = 16036-6) >=300 MG/dL pH (test code = pH) 5.5 URINE BLOOD (test code = 03258-4) SMALL SPECIFIC GRAVITY (test code = >=1.030 2965-2) KETONES (test code = 81686-5) 15 MG/dL BILIRUBIN (test code = 18716-8) MODERATE COLOR URINE (test code = 5778-6) JHOAN APPEARANCE (test code = 5767-9) CLEAR [facility][QL] URINALYSIS, [id number] 15:10:01 Test Item Value Reference Range Interpretation Comments UA Turbidity; Abnormal (test code Slight Clear A = 13774-1) UA Spec Grav; Above High Threshold 1.040 <=1.030 (test code = 5810-7) UA pH (test code = 5803-2) 5.0 5.0-8.0 UA Protein; Abnormal (test code = 100 mg/dl Negative A 02381-4) UA Glucose (test code = 04908-7) Negative Negative UA Ketones (test code = 99154-8) Negative Negative UA Bili (test code = 5770-3) Negative Negative UA Blood; Abnormal (test code = Small Negative A 5794-3) UROBILINOGEN; Above High Threshold 4.0 mg/dl 0.1-1.0 (test code = 04636-2) UA Nitrite; Abnormal (test code = Positive Negative A 5802-4) UA Leuk Est (test code = 5799-2) Negative Negative UA RBC; Above High Threshold (test 27 {/HPF} 0-2 code = 42696-5) UA WBC; Above High Threshold (test 14 {/HPF} 0-5 code = 61259-3) UA Bacteria (test code = 43812-9) Occasional None Seen UA Mucus; Abnormal (test code = Moderate None Seen A 8247-9) UA Sq Epi; Abnormal (test code = Moderate Few A 14548-8) UA Color (test code = 5778-6) Jhoan [facility] CBC (INCLUDES DIFF/PLT)2018-12-29 15:10:01 Test Item Value Reference Range Interpretation Comments WBC; Above High Threshold (test 10.8 {K/CMM} 3.7-10.4 code = 6690-2) RBC (test code = 789-8) 4.47 {M/CMM} 4.20-5.40 Hgb (test code = 718-7) 14.4 g/dl 12.0-16.0 Hct (test code = 10740-7) 42.7 % 36.0-48.0 MCV (test code = 787-2) 95.6 fL 80.0-98.0 MCH; Above High Threshold (test 32.1 pg 27.0-31.0 code = 785-6) MCHC (test code = 786-4) 33.6 g/dl 32.0-36.0 RDW (test code = 788-0) 13.7 % 11.5-14.5 Platelet (test code = 89473-1) 335 {K/CMM} 133-450 Mean Platelet Volume (test code 8.3 fL 7.4-10.4 = 26321-3) [facility] [id number] 15:10:01 Test Item Value Reference Range Interpretation Comments Segmented Neutrophils (test code 64.3 % 45.0-75.0 = 96869-2) Monocytes (test code = 71698-2) 7.6 % 2.0-12.0 Lymphocytes (test code = 97733-4) 26.8 % 20.0-40.0 Eosinophils (test code = 52584-4) 0.7 % 0.0-4.0 Basophils (test code = 706-2) 0.6 % 0.0-1.0 Segs-Bands # (test code = 6.9 {K/CMM} 1.5-8.1 18894-0) Lymphocytes # (test code = 2.9 {K/CMM} 1.0-5.5 18625-8) Monocytes # (test code = 10194-1) 0.8 {K/CMM} 0.0-0.8 Eosinophils # (test code = 0.1 {K/CMM} 0.0-0.5 09054-2) Basophils # (test code = 94535-8) 0.1 {K/CMM} 0.0-0.2 [facility][Q] HIV AB, HIV 1/2, EIA, WITH [id number] 15:10:01 Test Item Value Reference Range Interpretation Comments HIV Ag/Ab 4th Gen Negative Negative HIV test r esults should be (test code = considered posi tive only 57514-6) when both the s creening andthe confirma tory tests are positive. A negative confirmatory te st in patientswith a positive screening test does not exclude HIV inf ection. If clincallywarran svetlana, an HIV RNA quantitativ e test should be order ed. [facility][QLH] CMP [id number] 15:10:01 Test Item Value Reference Range Interpretation Comments Sodium Level 143 {mEq/l} 135-145 (test code = 2951-2) Potassium Level 4.2 {mEq/l} 3.5-5.1 (test code = 2823-3) Chloride Level 107 {mEq/l} 95-109 (test code = 5-0) Carbon Dioxide 25 {mEq/l} 24-32 (test code = 2027-9) AGAP (test code = 15.2 {mEq/l} 10.0-20.0 92038-1) Glucose Lvl; 106 mg/dl 70-99 Adult reference [...] Globulin (test 3.4 g/dl 2.7-4.2 code = 42925-0) A/G Ratio (test 1.1 0.7-1.6 code = 1759-0) Calcium Level 9.3 mg/dl 8.5-10.5 Total (test code = 18079-8) ALT (test code = 47 u/l 0-65 1743-4) AST (test code = 18 u/l 0-37 15219-3) Alk Phos (test 56 u/l 39-136 code = 1783-0) Bili Total (test 0.3 mg/dl 0.2-1.3 code = 1974-2) eGFR (test code = 64 The eGFR i s calculated 63755-5) {ML/MIN/1.7} using the CKD-E PI formula. In [...] be multiplied by t he estimated BMI. [facility][QH] LIPID PANEL WITH REFLEX TO DIRECT [id number] 15:10:01 Test Item Value Reference Range Interpretation Comments LDL (test code = 33567-4) 36 mg/dl <=99 Chol (test code = 2093-3) 124 mg/dl <=199 Trig; Above High Threshold (test 223 mg/dl <=149 code = 2571-8) HDL Cholesterol; Below Low 43 mg/dl >=61 Threshold (test code = 2085-9) CHD Risk; Below Low Threshold (test 2.88 3.90-5.80 code = 28131-6) VLDL (test code = VLDL) 45 [facility][QLH] TSH, 3RD GENERATION W/REFLEX TO [id number] 15:10:01 Test Item Value Reference Range Interpretation Comments TSH (test code = 76657-7) 2.550 {uIU/ml} 0.360-3.740 [facility][H] CRP, hs, Cardiac [id number] 15:10:01 Test Item Value Reference Range Interpretation Comments C-Reactive Protein High 25.9 mg/L Low Risk: <1.0 Sensitivity (test code = mg/ LAverage Risk: 52185-2) 1.0 - 3.0 mg/LH igh Risk: >3.0 mg/LInflammatio n: >10.0 mg/L [facility][QL[facility]] SED RATE BY MODIFIED [id number] 15:10:01 Test Item Value Reference Range Interpretation Comments Sedimentation Rate (test code = 17 {mm/hr} 0-20 23843-3) [facility][QL[facility]] HEMOGLOBIN [id number] 15:10:01 Test Item Value Reference Range Interpretation Comments Hemoglobin A1c; Above High Threshold 5.7 % <=5.6 (test code = 4548-4) [facility][QLH] WARREN PANEL, [id number] 15:10:01 Test Item Value Reference Range Interpretation Comments Antinuclear Antibody Negative Negative Because the WARREN was Screen (test code = Negative , the Reflex 15103-5) assays for Anti-dsDNA, SM/ [employer] MANAGER, Deb/La (SSA/S SB) were not perfor med. [facility]
[2022-07-21 01:47] VITALS: BP 136/68; TEMP 98.7; O2SAT 100
== END 2022-07-21 00:46 | disposition home or self-care (01) ==
LOC: ER 00:24
DX: T82.594A Other mechanical complication of infusion catheter, initial encounter (principal)
CPT/HCPCS: 99281

== ENCOUNTER 2022-07-26 19:17 | Emergency (ER) | payer OTHER ==
--- OUTSIDE RECORDS SUMMARY | 2022-07-26 19:46 | XMS REPORT | Continuity of Care Document ---
:1980 Author Organization [facility] t Address [address] [place] [address] Care Team Providers Name Role Phone Percy Hinojosa MD Primary Care Physician SYDNEY GONZALEZ Attending Clinician Unavailable ANDREA OBANDO Attending Clinician Unavailable DAVID GILMAN Attending Clinician Unavailable HECTOR STORM Attending Clinician Unavailable ELOISE DAMON Attending Clinician Unavailable ANGELES PASCAL Attending Clinician Unavailable JOSE ANTONIO MEREDITH Attending Clinician Unavailable ABDOULAYE PIERCE Attending Clinician Unavailable DALTON COLLINS Attending Clinician Unavailable MARK SCHAEFFER Attending Clinician Unavailable Mulu Bledsoe Attending Clinician MULU HARE Attending Clinician Unavailable MARLENY HUMPHREYS Attending Clinician Unavailable Marleny Humphreys MD Attending Clinician Amanda Goldberg Attending Clinician ABRAHAM TRACIE Sang Attending Clinician Unavailable Arin West MD Attending Clinician [phone] Virtual, Surgeon Attending Clinician Unavailable ALLYSON [...] Clinician UnavailJose Antonio Correa MD Attending Clinician [phone] Benjamin Sy MD Attending Clinician Ziyad Allen NP Attending Clinician LEELA DUNN Attending Clinician Unavailable DMITRI MCKEON Attending Clinician Unavailable Dmitri Mckeon MD Attending Clinician MITA JIMENEZ Attending Clinician Unavailable Sydnie Gallegos MD Attending Clinician Caleb JASMINE, Axel Mahajan Attending Clinician Unavailable Doctor Unassigned, Frederickson Attending Clinician Unavailable HAYLEY VAZQUEZ Attending Clinician Unavailable Gwyn Noe MD, [place] [...] Clinician Marichuy SANDOVAL, Ricci Vides Attending Clinician [phone] DONNY FENG Attending Clinician Unavailable Allyson Mena MD Attending Clinician Yuli Robles MD Attending Clinician Donny Feng MD Attending Clinician PILI SPRINGER Attending Clinician Unavailable Pili Springer MD Attending Clinician [phone] Brandt Alvarado MD Attending Clinician SHELLY BYRD Attending Clinician Unavailable JOE BLANCA Attending Clinician Unavailable BRANDT ALVARADO Attending Clinician Unavailable ANEL CARR Attending Clinician Unavailable BRANDT EGAN Attending Clinician Unavailable NEREIDA YOUNG Attending Clinician Unavailable Leonora Smith MD Attending Clinician [phone] ABDOULAYE PIERCE Attending Clinician Unavailable Abdoulaye Pierce MD Attending Clinician RAS KINGSTON Attending Clinician Unavailable GERALDO BEGUM Attending Clinician Unavailable PABLO FERNANDEZ Attending Clinician Unavailable aPblo Fernandez MD Attending Clinician [phone] Yann ALUMINUM SHEET CUTTER, HEATER OPERATOR, Radha Wilson Attending Clinician Unavailable KAMERON [...] Clinician Unavailable BRANDT ALVARADO Attending Clinician Unavailable EHCTOR STORM M.D. Attending Clinician Unavailable Kevin Campos DO Attending Clinician Shannan SANDOVAL, Bindu Abdi Attending Clinician Parish Fam MD Attending Clinician BRANDT SULLIVAN [...] BILLY PENA M.D. Attending Clinician Unavailable ROXANN SUOZA M.D. Attending Clinician Unavailable KOBE MEDELLIN APRN [...] Unavailable YULI ROBLES Admitting Clinician Unavailable BRIDGET AAVLOS Admitting Clinician Unavailable BRANDT BILL Admitting Clinician Unavailable MEHREEN MARQUEZ Admitting Clinician Unavailable Payers Payer Name Policy Type Policy Number Effective Date Expiration Date S magda MEDICAID TCH STAR [id number] 2018 00:00:00 BCBS PPO POS EPO [id number] 2015 2017 CHOICE 00:00:00 00:00:00 [facility] [id number] 2018 HEALTH PLAN STAR 00:00:00 GENERIC PPO - [id number] [facility] [id number] [address] [facility] 00:00:00 PLAN PPO/EPO - BCBS [id number] [facility] [id number] 2016 2016 [facility]ALTH [facility] 00:00:00 00:00:00 MEDICAID STAR - COMMUNITY [id number] [facility] [id number] 2019 CHOICE MEDICAID 00:00:00 Problems Condition Condition Condition Status Onset Resolution Last Treating Co mments Source Name Details Category Date Date Treatment Clinician Date Abdominal Abdominal Disease Active [facility]15 [facility] 00 [place] Postoperat Postoperat Disease Active [facility] luzmaria nausea luzmaria nausea 1-14 [facility] and and 00:00: Medical vomiting vomiting 00 Center Obesity Obesity Disease Active 2021-[address] [facility] 2-28 [facility] 00[facility] Medical 00 [place] Right arm Right arm Disease Active [facility] weakness weakness 9-24 [facility] 00:[facility]: Medical 00 Center Weakness Weakness Disease Active [facility] right of right 9-21 [facility] upper upper 00:00: Medical extremity extremity 00 Cent er POTS POTS Disease Active [facility] (postural (postural 8-16 [facility] orthostati orthostati 00:00: of c c 00 Medicin tachycardi tachycardi e a a syndrome) syndrome) Persistent Persistent Disease Active [facility] genital genital 7-19 College arousal arousal 00:00: of disorder disorder 00 Medici n e Essential Essential Disease Active [place] [facility] hypertensi hypertensi 6-05 Co llege on on 00:00: of 00 Medicin e Dysautonom Dysautonom Disease Active [facility] ia ia 6-05 College 00:00: of 00 Medicin e History of History of Disease Active [facility] DVT (deep DVT (deep 05 [facility] vein vein 00:00: of thrombosis thrombosis 00 Me dicin ) ) e Bipolar 2 Bipolar 2 Disease Active [place] [facility] disorder disorder 5-18 Colleg e 00:00: of 00 Medicin e Attention Attention Disease Active [place] [facility] deficit deficit 5-18 College hyperactiv hyperactiv 00:00: of ity ity 00 Medicin disorder disorder e (ADHD), (ADHD), predominan predominan tly tly inattentiv inattentiv e type e type RILEY RILEY Disease Active [facility] (obstructi (obstructi 516 [employer] ve [...] y.Uses [employer], sometimes notices air leaks.DME company: [employer] nts an appointme nt with Dr. Muñoz [...] for complianc e. Chronic Chronic Disease Active [facility] insomnia insomnia 5-16 [employer] le[employer] 00:00: t & Plan: of 00 Formattin Medicin g of this e note might be different from the original. Pending evaluatio n by Dr. Stuart i for CBT-I Morbid Morbid Disease Active [facility] obesity obesity 5-16 [employer] Colle ge [...] 00 Medicin e Iron Iron Disease Active [facility] deficiency deficiency 1-13 Co llege 00:00: 00 Medicin e 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 9-10 [facility] Acute Acute Disease Active [facility] pulmonary pulmonary 8-11 [facility] e[facility] embolism embolism 00:00: of 00 Medicin e Morbid Morbid Disease Active Univers obesity obesity 3-14 ity of 00:00: [address] Branch Rheumatoid Rheumatoid Disease Active U nadineers arthritis arthritis 3-11 ity of 00:00: [place] 00 Medical Branch Insomnia Insomnia Disease Active Unive rs 3-11 ity of 00:00: [place] [id number] Medical Branch Enteropath Enteropath Disease Active 2016-06 [...] of routine routine 00:00: g of this [place] gynecologi gynecologi 00 note Me dical tyler tyler might be Branch examinatio examinatio different n n from the original. 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 ICD10 Diagnosis Term Lumber Piler Operator Utility Genital Genital Disease Active Univers warts warts 6-24 ity of 00:00: [place] 00 Medical Branch Endometrio Endometrio Disease Active U nivers sis sis 6-24 ity of 00:00: Medical Branch PCOS PCOS Disease Active Univers (polycysti (polycysti 624 it y of c ovarian c ovarian 00:00: [place] syndrome) syndrome) 00 [facility] Branch Acne Acne Disease Active Univers 6-24 ity of 00:00: Medical Branch Obesity Obesity Disease Active Overview: Univ ers 6 Formattin ity of 00:00: g of this note Medical might be Branch different from the original. 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 B aylor 08-02 Assessmen College 00:00: t & Plan: of Formattin Medicin g of this e note might be different from the original. Stable but contribut ing to fatigue Anxiety Anxiety Disease Active 2009-06 [facility] 08-02 [place] 00:00: of 00 Medicin e History of [...] nerve pain nerve pain it y of [place] [facility] Allergies, Adverse Reactions, Alerts Allergy Allergy Status Severity Reaction(s) Onset Inactive Treating Comm ents Source Name Type Date Date Clinician CLINDAMY DRUG Active Rash 2021-06 Univers MARI INGREDI 0-11 ity of 00:00: [place] 00 Medical Branch Clindamy Propensi Active Rash 2021-06 Univer s amri ty to 0-11 ity of adverse 00:00: [place] reaction 00 Medical s Branch Morphine Drug [...] in Allergy Rash 12-13 azithromy [facility] 00:00: [facility], Medical 00 phospomyc Center in, rocephin Nitrofur Drug Active Rash [facility] antoin Allergy - [facility] Monohyd/ 00:00: Medical M-Cryst 00 Center NITROFUR DRUG Active Med Rash 2021- Univers ANTOIN INGREDI 5-16 ity of 00:00: [place] 00 Medical Branch Nitrofur Propensi Active Rash Univer s antoin ty to 11-06 ity of adverse 00:00: [place] reaction 00 Medical s Branch Nitrofur Propensi Active Rash [facility] antoin ty to 11-06 [place] Macrocry adverse 00:00: of stal reaction 00 Medicin s to e drug Sulfasal Propensi Active Swelling tounge [facility] or azine ty to 07-20 swelling College adverse 00:00: of reaction 00 Medicin s to e drug DOXYCYCL DRUG Active Diarrhea 2019- Univer s INE INGREDI 08-21 ity of 00:00: [place] 00 Medical Branch Doxycycl Propensi Active Diarrhea 2019- Univ ers ine ty to 08-21 ity of adverse 00:00: [place] reaction 00 Medical s Branch Ed Propensi Active 2019-06 [facility] A-Hist ty to 08-21 [place] Pse adverse 00:00: of reaction 00 Medicin s to e drug Doxycycl Propensi Active Diarrhea 2019-06 [facility] or ine ty to 08-21 [place] adverse 00:00: of reaction 00 Medicin s to e drug DOXYCYCL Allergy Active Med Diarrhea 2019- [facility] INE -28 [facility] 00:[facility]: Medical 00 Center Doxycycl Drug Active Diarrhea 2019- [facility] ine Allergy -28 [facility] 00[facility]: Medical 00 Center Cephalos Propensi Active 2019-06 [facility] porins ty to 07-12 [place] adverse 00:00: of reaction 00 Medicin s to e drug Ciproflo Propensi Active 2019-06 [facility] xacin ty to 07-12 [place] adverse 00:00: of reaction 00 Medicin s to e drug Sulfa Propensi Active 2019-06 [facility] Antibiot ty to 07-12 [place] ics adverse 00:00: of reaction 00 Medicin s to e drug AMOXICIL DRUG Active Diarrhea 2019-0 Univer s ALEXY INGREDI 03-02 ity of 00:00: [place] 00 Medical Branch Amoxicil Propensi Active Diarrhea 2019- And Univ ers alexy ty to 03-02 Augmentin ity of adverse 00:00: . Patient [place] reaction 00 TOLERATES Medic al s Penicilli Branch n without adverse rxnAnd Augmentin . Patient TOLERATES Penicilli n without adverse rxn SULFA Allergy Active Swelling 2019- [facility] (SULFONA 03-02 MIDE 00:00: ANTIBIOT 00 [...] 2020-0 [facility] ACIN 03-02 00:00: 00 Amoxicil Propensi Active Diarrhea 0 And [facility] or alexy ty to 03-02 Augmentin College adverse 00:00: . Patient of reaction 00 TOLERATES Medic in s to Penicilli e drug n without adverse rxn Amoxicil Drug Active Diarrhea 2019-[address] alexy-Pot Allergy 03-02 [facility] Clavulan [...] mide 00:00: Medical Antibiot 00 Center ics) CELECOXI DRUG Active Swelling 2020-0 Univer s B INGREDI 2-27 ity of 00:00: [place] 00 Medical Branch Celecoxi Propensi Active Swelling 2020-0 Univ ers b ty to 2-27 ity of adverse 00:00: [place] reaction 00 Medical s Branch Celecoxi Propensi Active Swelling 2020-0 tongue [facility] or b ty to 08-20 [...] Univers Class 6-24 ity of 00:00: [place] [facility] CEPHALEX DRUG Active ITCHING Univers [...] Propensi Active Palpitations Univers acin ty to 6-24 ity of adverse 00:00: [place] reaction Medical s Branch Levoflox Propensi Active Swelling Throat [facility] or acin ty to 4-20 and rapid [place] adverse 00:00: heart of reaction 00 rateTachy Medic in s to cardiaTac e drug hycardiat achycardi a Levaquin Propensi Active Palpitations 2010-06 [facility] ty to 2-19 College adverse 00:00: of [...] of tongue Duloxeti Propensi Active 2010-06 Serotonin [place] [facility] ne Hcl ty to 07-14 syndrome [place] adverse 00:00: of reaction 00 Medicin s to e drug Duloxeti Propensi Active 2010-06 Serotonin [facility] ne Hcl ty to 07-[address] [facility] 00:00: [facility]ospita reaction 00 l s to drug NSAIDS Allergy Active Swelling 2009-06 [facility] (NON-REMIGIO 30 ROIDAL 00:00: ANTI-INF 00 LAMMATOR Y DRUG) ADHESIVE Allergy Active Hives 2009-06 [facility] TAPE 07-23 00:00: 00 Adhesive Propensi Active Blister 2009-06 [facility] [...] e drug Keflex Propensi Active Itching 2009-06 Mikal ty to 07-23 College adverse 00:00: of reaction 00 Medicin s to e drug Adhesive Drug Active Hives 2009-[address] [facility] Tape Allergy 07-23 [facility] 00:00: Medical 00 Center NO KNOWN Allergy Active [facility] Ciproflo Allergy Active [place] xacin [...] abuse [facility] Natural brother Depression [facility] Natural brother Irritable bowel Meth odist syndrome [facility] Natural brother Learning disabilities [facility] [place] [facility] Natural brother Mental illness [facility] Natural father Alcohol abuse Methodi [facility] Natural father Hypertension Method[facility] Natural father Hypertension [facility] Maternal Diabetes [facility] Maternal [facility]aternal Hypertension [facility] Maternal Parks's esophagus Metho dist [facility] M[facility] Cancer [facility] GERD [facility] Maternal Liver cancer [facility] [place] Maternal Ulcerative colitis Method ist [facility] Natural mother Arthritis [facility] Natural mother Vision loss [facility] [place] [facility] Natural mother Arthritis [facility] Natural mother Hypothyroidism [facility] Natural sister Alcohol abuse [facility] Natural sister Depression [facility] [place] [facility] Natural sister Irritable bowel [facility] Natural sister Learning disabilities [facility] [place] [facility] Natural sister Mental illness [facility] Social History Social Habit Start Date Stop Date Quantity Comments Source History of Passive smoker [facility] lege of tobacco use Medicine History SDOR [facility] Alcohol Frequency Medical Center History SDOH [facility] Alcohol Std Medical Cente r Drinks History SDOR [facility] Alcohol Binge Medical Maggy ter Exposure to 2022-07-09 2022-07-19 Not sure University of SARS-CoV-2 00:00:00 10:05:00 [facility] (event) Branch Alcohol intake 2022-07-06 2022-07-06 [facility]er [facility]:00 of alcohol Medical Center (finding) History [facility] 2021-11-19 2021-11-19 0 [facility] of Physical Activity 00:00:00 00:00:00 Medicin e DPW History [facility] 2021-11-19 2021-11-19 0 [facility] of Physical Activity 00:00:00 00:00:00 Medicin e MPS Tobacco Comment 2021-11-14 2021-11-14 None [facility] llege of 00:00:00 00:00:00 Medicine Cigarette 2021-11-14 2021-11-14 [facility] College of pack-years 00:00:00 00:00:00 Medicine Tobacco use and 2020-03-02 2020-03-[address] [facility] kes exposure 00:00:00 00:00:00 Medical Center History SDOR 2020-03-02 2020-03-[address] [facility] Alcohol Comment 00:00:00 00:00:00 Medical C enter Sex [birth year] At [birth year] [facility] [place] [facility] 00:00:00 00:00:00 Smoking Status Start Date Stop Date Source Ex-smoker 2021-11-14 00:00:00 2021-11-14 00:00:00 [facility] of Medicine Never smoker [facility] Center Medications Ordered Filled Start Stop Current Ordering Indication Dosage Frequency Signature Comments Components Source Medication Medication Date Date Medication? Clinician (SIG) Name Name lamoTRIgine 2022-0 2022- No 300mg QD Take [address] (LaMICtal 1-22 01-22 mg by [facility]ukes XR) 300 mg 21:29: 00:00 mouth Medic al TR24 21 :00 nightly . Center lamoTRIgine 2022-0 2022- No 300mg QD Take [address] [...] daily Ulcerative colitis. gabapentin 0 Yes 800mg Q.[id number] Take [address] (NEURONTIN) 1-22 [id number] mg by L ukes 800 MG 15:03: 3D mouth 3 Medical tablet 24 (three) Center times daily. meclizine 2022-0 Yes 25mg Take [address] (ANTIVERT) 1-22 by mouth 3 Ady es 25 MG 15:03: (three) Medical tablet 24 times Center daily as needed. cetirizine 0 Yes 10mg QD Take [address] (ZyrTEC) 10 1-22 by mouth Luke s MG tablet 15:03: daily. Medica l 24 Center fluticasone 2022-0 Yes 1{puff} Q.5D Inhale [address] propion-louis 1-22 puff by Lukes meteroL 15:03: mouth via Medic al (ADVAIR) 24 inhaler 2 Center 500-50 (two) mcg/dose times diskus daily. inhaler hydrOXYzine 2022-0 Yes 25mg Take [address] (ATARAX) 25 1-22 by mouth 3 [facility] k[facility] MG tablet 15:03: (three) Medic al 24 times Center daily as needed for Itching. cholecalcif 2022-0 Yes 400U QD Take [address] zheng 1-22 Units by [facility]ukes (VITAMIN 15:03: mouth Medical D3) 10 mcg 24 daily. Center (400 unit) Tab tablet fluconazole 2022-0 Yes 150mg Take [address] (DIFLUCAN) 1-22 mg by [facility]ukes 150 MG 15:03: mouth Medical tablet 24 once. Center dextroamphe 0 Yes Take by [facility] tamine-amph 1-22 mouth. [facility] etamine 15:03: Medical (AdderalL) 24 Center 15 mg Tab baclofen 0 Yes 10mg Q.[id number] Take [address] (LIORESAL) 1-22 [id number] by mouth 3 [facility]ukes 10 MG 15:03: 3D (three) Medical tablet 24 times Center daily arthralgia . albuterol 0 Yes 1{puff} Inhale 1 C [...] (two) Center times daily Ulcerative colitis. gabapentin 3-0 Yes 800mg Q.[id number] Take [address] (NEURONTIN) 1-22 [id number] mg by L ukes 800 MG 15:03: 3D mouth 3 Medical tablet 24 (three) Center times daily. meclizine 2022-0 Yes 25mg Take [address] (ANTIVERT) 1-22 by mouth 3 Ady es 25 MG 15:03: (three) Medical tablet 24 times Center daily as needed. cetirizine Yes 10mg QD Take [address] (ZyrTEC) 10 1-22 by mouth Luke s MG tablet 15:03: daily. Medica l 24 Center fluticasone Yes 1{puff} Q.5D Inhale [address] propion-louis 1-22 puff by Lukes meteroL 15:03: mouth via Medic al (ADVAIR) 24 inhaler 2 Center 500-50 (two) mcg/dose times diskus daily. inhaler hydrOXYzine Yes 25mg Take [address] (ATARAX) 25 1-22 by mouth 3 [facility]ene kes MG tablet 15:03: (three) Medic al [...] Center 15 mg Tab baclofen Yes 10mg Q.[id number] Take [address] (LIORESAL) 1-22 [id number] by mouth 3 [facility] 10 MG 15:03: 3D (three) Medical tablet 24 times Center daily arthralgia . lamoTRIgine Yes 300mg QD Take [address] (LaMICtal 1-22 mg by [facility]ukes XR) 300 mg 00:00: mouth Medica l TR24 00 nightly. Center lamoTRIgine 0 Yes 300mg QD Take [address] (LaMICtal 1-22 mg by [facility]ukes XR) 300 mg 00:00: mouth Medica l TR24 00 nightly. Center albuterol 2021-06 Yes 1{puff} Inhale 1 C [...] daily Ulcerative colitis. gabapentin 2021-06 Yes 800mg Q.[id number] Take [address] (NEURONTIN) 2-29 [id number] mg by L ukes 800 MG 15:02: [...] St (ATARAX) 25 2-29 by mouth 3 [facility]ene kes MG tablet 15:02: (three) Medic al [...] 15 mg Tab baclofen 2021-06 Yes 10mg Q.[id number] Take [address] (LIORESAL) 2-29 [id number] by mouth 3 [facility]ukes 10 MG 15:02: [...] 15:02: mouth Medical tablet 20 nightly . [place] mesalamine 2021-06 Yes 2400mg Q.5D Take 2,[address] (LIALDA) 2-29 mg by [facility]ukes 1.2 gram EC 15:02: mouth 2 Med ical tablet 20 (two) Center times daily Ulcerative colitis. gabapentin 2021-06 Yes 800mg Q.[id number] Take [address] (NEURONTIN) 2-29 [id number] mg by L ukes 800 MG 15:02: [...] St (ATARAX) 25 2-29 by mouth 3 [facility]ene kes MG tablet 15:02: (three) Medic al [...] 15 mg Tab baclofen 2021-06 Yes 10mg Q.[id number] Take [address] (LIORESAL) 2-29 [id number] by mouth 3 [facility] 10 MG 15:02: 3D (three) Medical tablet 20 times Center daily arthralgia . ondansetron 2021-06 No 4mg Take [address] [facility] (ZOFRAN-ODT 2-27 12-30 tablet (4 Ilene kes ) 4 MG 00:00: 23:59 mg total) Medic al disintegrat 00 :00 by mouth Cent er ing tablet every 8 (eight) hours as needed for Nausea for up to 3 days. ondansetron 2021-06 No 4mg Take [address] (ZOFRAN-ODT 2-27 12-30 tablet (4 Ilene kes ) 4 MG 00:00: 23:59 mg total) Medic al disintegrat 00 :00 by mouth Cent er ing tablet every 8 (eight) hours as needed for Nausea for up to 3 days. ondansetron 2021-06- No 4mg Take [address] (ZOFRAN-ODT 2-27 12-30 tablet (4 Ilene kes ) 4 MG 00:00: 23:59 mg total) Medic al disintegrat 00 :00 by mouth Cent er ing tablet every 8 (eight) hours as needed for Nausea for up to 3 days. ondansetron 2021-06- No 4mg Take [address] (ZOFRAN-ODT 2-27 12-30 tablet (4 [facility]ene kes ) 4 MG 00:00: 23:59 mg total) Medic al disintegrat 00 :00 by mouth Cent er ing tablet every 8 (eight) hours as needed for Nausea for up to 3 days. gabapentin 2021-06 Yes [id number] 100mg Take 1 Univers 100 mg 2-19 capsule by ity of capsule 00:00: mouth in [address] and 1 capsule at noon and 1 capsule in the evening. gabapentin 2021- Yes [id number] 100mg Take 1 Univers 100 mg 2-19 capsule by ity of capsule 00:00: mouth in [address] and 1 capsule at noon and 1 capsule in the evening. gabapentin 2021-06 Yes [id number] 100mg Take 1 Univers 100 mg 2-19 capsule by ity of capsule 00:00: mouth in [address] and 1 capsule at noon and 1 capsule in the evening. gabapentin 2021- Yes [id number] 100mg Take 1 Univers 100 mg 2-19 capsule by ity of capsule 00:00: mouth in [address] and 1 capsule at noon and 1 capsule in the evening. gabapentin 2021- Yes [id number] 100mg Take 1 Univers 100 mg 2-19 capsule by ity of capsule 00:00: mouth in [address] and 1 capsule at noon and 1 capsule in the evening. gabapentin 2021- Yes [id number] 100mg Take 1 [facility] 100 mg 2-19 capsule by ity of capsule 00:00: mouth in [address] and 1 capsule at noon and 1 capsule in the evening. gabapentin 2021-1 Yes [id number] 100mg Take 1 Univers 100 mg 2-19 capsule by ity of capsule 00:00: mouth in [address] and 1 capsule at noon and 1 capsule in the evening. gabapentin 2021- Yes [id number] 100mg Take 1 Univers 100 mg 2-19 capsule by ity of capsule 00:00: mouth in [address] and 1 capsule at noon and 1 capsule in the evening. gabapentin 2021- Yes [id number] 100mg Take 1 Univers 100 mg 2-19 capsule by ity of capsule 00:00: mouth in [address] morning [place] and 1 capsule at noon and 1 capsule in the evening. gabapentin 202-1 Yes [id number] 100mg Take 1 Univers 100 mg 2-19 capsule by ity of capsule 00:00: mouth in [address] and 1 capsule at noon and 1 capsule in the evening. gabapentin 2021- Yes [id number] 100mg Take 1 Univers 100 mg 2-19 capsule by ity of capsule 00:00: mouth in [address] morning [place] and 1 capsule at noon and 1 capsule in the evening. gabapentin 2021- Yes [id number] 100mg Take 1 Univers 100 mg 2-19 capsule by ity of capsule 00:00: mouth in [address] and 1 capsule at noon and 1 capsule in the evening. gabapentin 2021- Yes [id number] 100mg Take 1 [facility] 100 mg 2-19 capsule by [facility] of capsule 00:00: mouth in [address] and 1 capsule at noon and 1 capsule in the evening. gabapentin 2021- Yes [id number] 100mg Take 1 [facility] 100 mg 2-19 capsule by ity of capsule 00:00: mouth in [address] and 1 capsule at noon and 1 capsule in the evening. gabapentin 2021- Yes [id number] 100mg Take 1 [facility] 100 mg 2-19 capsule by ity of capsule 00:00: mouth in [address] and 1 capsule at noon and 1 capsule in the evening. gabapentin 2021- Yes [id number] 100mg Take 1 [facility] 100 mg 2-19 capsule by ity of capsule 00:00: mouth in [address] and 1 capsule at noon and 1 capsule in the evening. gabapentin 2021-1 Yes [id number] 100mg Take 1 [facility] 100 mg 2-19 capsule by ity of capsule 00:00: mouth in [address] and 1 capsule at noon and 1 capsule in the evening. gabapentin 2021-1 Yes [id number] 100mg Take 1 [facility] 100 mg 2-19 capsule by ity of capsule 00:00: mouth in [place] 00 the Medical morning Branch and 1 capsule at noon and 1 capsule in the evening. gabapentin 2021-06 Yes [id number] 100mg Take 1 [facility] 100 mg 2-19 capsule by ity of capsule 00:00: mouth in [place] 00 the Medical morning Branch and 1 capsule at noon and 1 capsule in the evening. fluticasone 2021-06 Yes 1{puff} Inhale 1 [facility] -salmeterol 1-07 Puff by [facility] (ADVAIR) 09:18: mouth of 500-50 41 every 12 Medicin MCG/DOSE hours. e inhaler Cholecalcif 2021-06 Yes 400U Take 400 [facility] zheng 1-07 Units by [place] (VITAMIN 09:18: mouth. of D-3) 10 MCG 41 Medicin (400 UNIT) e TABS Ascorbic 2021-06 Yes 3000mg Take 3,000 [facility] Acid 1000 1-07 mg by [place] MG TABS 09:18: mouth. of 41 Medicin e hydrocortis 2021-[address] 100 [facility] one 1-04 mg [place] (CORTENEMA) 00:00: rectally of 100 MG/60ML 00 at Medicin enema bedtime. e fluticasone 2021-06 Yes 1{puff} Inhale 1 [facility] -salmeterol 0-27 Puff by [facility] (ADVAIR) 11:47: mouth of 500-50 42 every 12 Medicin MCG/DOSE hours. e inhaler Cholecalcif 2021-06 Yes 400U Take 400 [facility] zheng 0-27 Units by [place] (VITAMIN 11:47: mouth. of D-3) 10 MCG 42 Medicin (400 UNIT) e TABS Ascorbic 2021-06 Yes 3000mg Take 3,000 [facility] [place] Acid 1000 0-27 mg by [place] MG TABS 11:47: mouth. of 42 Medicin e amphetamine 2021-06 Yes [id number] 1{tbl} Take 1 [facility] -dextroamph 0-21 Tablet by [facility] etamine 00:00: mouth of (ADDERALL, 00 daily. In Medi mari 15MG,) 15 the e MG tablet morning amphetamine 2021-06 Yes [id number] 1{tbl} Take 1 [facility] -dextroamph 0-21 Tablet by [facility] etamine 00:00: mouth of (ADDERALL, 00 daily. In Medi mari 15MG,) 15 the e MG tablet morning cephALEXin 2021-06 Yes [facility] (KEFLEX) 0-18 [place] 500 MG 00:00: of capsule 00 Medicin e cephALEXin 2021-06 Yes [facility] (KEFLEX) 0-18 [place] 500 MG 00:00: of capsule 00 Medicin e fluticasone 2021-06 Yes 1{puff} Inhale 1 [facility] -salmeterol 0-17 Puff by [employer] [facility] (ADVAIR) 09:43: mouth of 500-50 15 every 12 Medicin MCG/DOSE hours. e inhaler Cholecalcif 2021-06 Yes 400U Take 400 [facility] zheng 0-17 Units by [place] (VITAMIN 09:43: mouth. of D-3) 10 MCG 15 Medicin (400 UNIT) e TABS fluticasone 2021-06 Yes 1{puff} Inhale 1 [facility] -salmeterol 0-17 Puff by [facility] (ADVAIR) 09:43: mouth of 500-50 15 every 12 Medicin MCG/DOSE hours. e inhaler Cholecalcif 2021-06 Yes 400U Take 400 [facility] zheng 0-17 Units by [place] (VITAMIN 09:43: mouth. of D-3) 10 MCG 15 Medicin (400 UNIT) e TABS Ascorbic 2021-06 Yes 3000mg Take 3,000 [facility] [place] Acid 1000 0-17 mg by [place] MG TABS 09:43: mouth. of 15 Medicin e baclofen 2021-06 Yes [id number] TAKE ONE [facility] (LIORESAL) 0-14 TABLET BY [facility] 10 MG 00:00: MOUTH of tablet 00 THREE Medicin TIMES A e DAY NEEDED FOR PAIN baclofen 2021-06 Yes [id number] TAKE ONE [facility] (LIORESAL) 0-14 TABLET BY [facility] 10 MG 00:00: MOUTH of tablet 00 THREE Medicin TIMES A e DAY NEEDED FOR PAIN baclofen 2021-06 Yes [id number] TAKE ONE [facility] (LIORESAL) 0-14 TABLET BY [facility] 10 MG 00:00: MOUTH of tablet 00 THREE Medicin TIMES A e DAY NEEDED FOR PAIN hydrocodone 2021-06 Yes [id number] 1{tbl} Take 1 [facility] -acetaminop 0-13 Tablet by [facility] (NORCO) 00:00: mouth of 5-325 mg 00 every 4 Medicin tablet hours as e needed for Pain. amphetamine 2021-06 Yes [id number] 1{tbl} Take 1 [facility] -dextroamph 0-13 Tablet by [facility] et[facility] 00:00: mouth of (ADDERALL, 00 daily. Medicin 5MG,) 5 MG Take in e tablet afternoon amphetamine 2021-06 Yes [id number] 1{tbl} Take 1 [facility] -dextroamph 0-13 Tablet by [facility] etamine 00:00: mouth of (ADDERALL, 00 daily. In Medi mari 15MG,) 15 the e MG tablet morning hydrocodone 2021-06 Yes [id number] 1{tbl} Take 1 [facility] -acetaminop 0-13 Tablet by [facility] (NORCO) 00:00: mouth of 5-325 mg 00 every 4 Medicin tablet hours as e needed for Pain. amphetamine 2021-06 Yes [id number] 1{tbl} Take 1 [facility] -dextroamph 0-13 Tablet by [facility] etamine 00:00: mouth of (ADDERALL, 00 daily. Medicin 5MG,) 5 MG Take in e tablet afternoon amphetamine 2021-06 Yes [id number] 1{tbl} Take 1 [facility] -dextroamph 0-13 Tablet by [facility] etamine 00:00: mouth of (ADDERALL, 00 daily. In Medi mari 15MG,) 15 the e MG tablet morning fluconazole 2021-06 Yes 150mg Take 150 [facility] (DIFLUCAN) 0-13 mg by [place] 150 MG 00:00: mouth of tablet 00 daily. Medicin e hydrocodone 2021-06 Yes [id number] 1{tbl} Take 1 [facility] -acetaminop 0-13 Tablet by [facility] (NORCO) 00:00: mouth of 5-325 mg 00 every 4 Medicin tablet hours as e needed for Pain. amphetamine 2021-06 Yes [id number] 1{tbl} Take 1 [facility] -dextroamph 0-13 Tablet by [facility] etamine 00:00: mouth of (ADDERALL, 00 daily. Medicin 5MG,) 5 MG Take in e tablet afternoon fluconazole 2021-06 Yes 150mg Take 150 [facility] (DIFLUCAN) 0-13 mg by [place] 150 MG 00:00: mouth of tablet 00 daily. Medicin e hydrocodone 2021-06 Yes [id number] 1{tbl} Take 1 [facility] -acetaminop 0-13 Tablet by [facility] (NORCO) 00:00: mouth of 5-325 mg 00 every 4 Medicin tablet hours as e needed for Pain. amphetamine 2021-06 Yes [id number] 1{tbl} Take 1 [facility] -dextroamph 0-13 Tablet by [facility] etamine 00:00: mouth of (ADDERALL, 00 daily. Medicin 5MG,) 5 MG Take in e tablet afternoon fluconazole 2021-06 Yes 150mg Take 150 [facility] (DIFLUCAN) 0-13 mg by [place] 150 MG 00:00: mouth of tablet 00 daily. Medicin e midodrine 2021-06 Yes 2.5mg Take 2.5 [facility] vers 2.5 mg 0-11 mg by ity of tablet 14:05: mouth. [address] midodrine 2021-06 Yes 2.5mg Take 2.5 [facility] vers 2.5 mg 0-11 mg by ity of tablet 14:05: mouth. [address] midodrine 2021-06 Yes 2.5mg Take 2.5 [facility] vers 2.5 mg 0-11 mg by ity of tablet 14:05: mouth. [address] midodrine 2021-06 Yes 2.5mg Take 2.5 [facility] vers 2.5 mg 0-11 mg by ity of tablet 14:05: mouth. [address] midodrine 2021-06 Yes 2.5mg Take 2.5 [facility] vers 2.5 mg 0-11 mg by ity of tablet 14:05: mouth. [address] midodrine 2021-06 Yes 2.5mg Take 2.5 [facility] vers 2.5 mg 0-11 mg by ity of tablet 14:05: mouth. [address] 2021-06 Yes 2.5mg Take 2.5 [facility] vers 2.5 mg 0-11 mg by ity of tablet 14:05: mouth. [address] midodrine 2021-06 Yes 2.5mg Take 2.5 [facility] vers 2.5 mg 0-11 mg by ity of tablet 14:05: mouth. [address] 2021-06 Yes 2.5mg Take 2.5 [facility] vers 2.5 mg 0-11 mg by ity of tablet 14:05: mouth. [address] 2021-06 Yes 2.5mg Take 2.5 [facility] vers 2.5 mg 0-11 mg by ity of tablet 14:05: mouth. [address] 2021-06 Yes 2.5mg Take 2.5 [facility] vers 2.5 mg 0-11 mg by ity of tablet 14:05: mouth. [address] 2021-06 Yes 2.5mg Take 2.5 [facility] vers 2.5 mg 0-11 mg by ity of tablet 14:05: mouth. [address] 2021-06 Yes 2.5mg Take 2.5 [facility] vers 2.5 mg 0-11 mg by ity of tablet 14:05: mouth. [address] 2021-06 Yes 2.5mg Take 2.5 [facility] vers 2.5 mg 0-11 mg by ity of tablet 14:05: mouth. [address] 2021-06 Yes 2.5mg Take 2.5 [facility] vers 2.5 mg 0-11 mg by ity of tablet 14:05: mouth. [address] 2021-06 Yes 2.5mg Take 2.5 [facility] vers 2.5 mg 0-11 mg by ity of tablet 14:05: mouth. [address] 2021-06 Yes 2.5mg Take 2.5 [facility] vers 2.5 mg 0-11 mg by ity of tablet 14:05: mouth. [address] 2021-06 Yes 2.5mg Take 2.5 [facility] vers 2.5 mg 0-11 mg by ity of tablet 14:05: mouth. [address] 2021-06 Yes 2.5mg Take 2.5 [facility] vers 2.5 mg 0-11 mg by ity of tablet 14:05: mouth. [address] 2021-06 Yes 2.5mg Take 2.5 [facility] vers 2.5 mg 0-11 mg by ity of tablet 14:05: mouth. [address] 2021-06 Yes 2.5mg Take 2.5 [facility] vers 2.5 mg 0-11 mg by ity of tablet 14:05: mouth. [address] midodrine 2021-06 Yes 2.5mg Take 2.5 [facility] vers 2.5 mg 0-11 mg by ity of tablet 14:05: mouth. [address] midodrine 2021-06 Yes 2.5mg Take 2.5 [facility] vers 2.5 mg 0-11 mg by ity of tablet 14:05: mouth. [address] midodrine 2021-06 Yes 2.5mg Take 2.5 [facility] vers 2.5 mg 0-11 mg by ity of tablet 14:05: mouth. [address] midodrine 2021-06 Yes 2.5mg Take 2.5 [facility] vers 2.5 mg 0-11 mg by ity of tablet 14:05: mouth. [address] 2021-06 Yes 2.5mg Take 2.5 [facility] vers 2.5 mg 0-11 mg by ity of tablet 14:05: mouth. [address] midodrine 2021-06 Yes 2.5mg Take 2.5 [facility] vers 2.5 mg 0-11 mg by ity of tablet 14:05: mouth. [address] midodrine 2021-06 Yes 2.5mg Take 2.5 [facility] vers 2.5 mg 0-11 mg by ity of tablet 14:05: mouth. [address] BUPROPION 2021-06 Yes [id number] 450mg Take 450 [facility] HCL 0-11 mg by ity of (WELLBUTRIN 14:02: mouth [place] ORAL) 34 daily. [facility] traZODONE 2021-06 Yes 100mg Take 100 Uni vers (DESYREL) 0-11 mg by ity of 100 mg 14:02: mouth at [place] tablet 34 bedtime. [facility] BUPROPION 2021-06 Yes [id number] 450mg Take 450 [facility] HCL 0-11 mg by ity of (WELLBUTRIN 14:02: mouth [place] ORAL) 34 daily. [facility] traZODONE 2021-06 Yes 100mg Take 100 Uni vers (DESYREL) 0-11 mg by ity of 100 mg 14:02: mouth at [place] tablet 34 bedtime. Medical Branch BUPROPION 2021-06 Yes [id number] 450mg Take 450 [facility] HCL 0-11 mg by ity of (WELLBUTRIN 14:02: mouth [place] ORAL) 34 daily. [facility] traZODONE 2021-06 Yes 100mg Take 100 Uni vers (DESYREL) 0-11 mg by ity of 100 mg 14:02: mouth at [place] tablet 34 bedtime. [facility] BUPROPION 2021-06 Yes [id number] 450mg Take 450 [facility] HCL 0-11 mg by ity of (WELLBUTRIN 14:02: mouth [place] ORAL) 34 daily. [facility] traZODONE 2021-06 Yes 100mg Take 100 [facility] vers (DESYREL) 0-11 mg by ity of 100 mg 14:02: mouth at [place] tablet 34 bedtime. [facility] BUPROPION 2021-06 Yes [id number] 450mg Take 450 [facility] HCL 0-11 mg by ity of (WELLBUTRIN 14:02: mouth [place] ORAL) 34 daily. [facility] traZODONE 2021-06 Yes 100mg Take 100 Uni vers (DESYREL) 0-11 mg by ity of 100 mg 14:02: mouth at [place] tablet 34 bedtime. [facility] BUPROPION 2021-06 Yes [id number] 450mg Take 450 [facility] HCL 0-11 mg by ity of (WELLBUTRIN 14:02: mouth [place] ORAL) 34 daily. [facility] traZODONE 2021-06 Yes 100mg Take 100 Uni vers (DESYREL) 0-11 mg by ity of 100 mg 14:02: mouth at [place] tablet 34 bedtime. [facility] BUPROPION 2021-06 Yes [id number] 450mg Take 450 [facility] HCL 0-11 mg by ity of (WELLBUTRIN 14:02: mouth [place] ORAL) 34 daily. [facility] traZODONE 2021-06 Yes 100mg Take 100 Uni vers (DESYREL) 0-11 mg by ity of 100 mg 14:02: mouth at [place] tablet 34 bedtime. [facility] BUPROPION 2021-06 Yes [id number] 450mg Take 450 [facility] HCL 0-11 mg by ity of (WELLBUTRIN 14:02: mouth [place] ORAL) 34 daily. [facility] traZODONE 2021-06 Yes 100mg Take 100 Uni vers (DESYREL) 0-11 mg by ity of 100 mg 14:02: mouth at [place] tablet 34 bedtime. [facility] BUPROPION 2021-06 Yes [id number] 450mg Take 450 [facility] HCL 0-11 mg by ity of (WELLBUTRIN 14:02: mouth [place] ORAL) 34 daily. Medical Branch traZODONE 2021-06 Yes 100mg Take 100 [facility] vers (DESYREL) 0-11 mg by ity of 100 mg 14:02: mouth at [place] tablet 34 bedtime. [facility] BUPROPION 2021-06 Yes [id number] 450mg Take 450 [facility] HCL 0-11 mg by ity of (WELLBUTRIN 14:02: mouth [place] ORAL) 34 daily. [facility] traZODONE 2021-06 Yes 100mg Take 100 Uni vers (DESYREL) 0-11 mg by ity of 100 mg 14:02: mouth at [place] tablet 34 bedtime. [facility] BUPROPION 2021-06 Yes [id number] 450mg Take 450 [facility] HCL 0-11 mg by ity of (WELLBUTRIN 14:02: mouth [place] ORAL) 34 daily. [facility] traZODONE 2021-06 Yes 100mg Take 100 Uni vers (DESYREL) 0-11 mg by ity of 100 mg 14:02: mouth at [place] tablet 34 bedtime. [facility] BUPROPION 2021-06 Yes [id number] 450mg Take 450 [facility] HCL 0-11 mg by ity of (WELLBUTRIN 14:02: mouth [place] ORAL) 34 daily. [facility] traZODONE 2021-06 Yes 100mg Take 100 Uni vers (DESYREL) 0-11 mg by ity of 100 mg 14:02: mouth at [place] tablet 34 bedtime. [facility] BUPROPION 2021-06 Yes [id number] 450mg Take 450 [facility] HCL 0-11 mg by ity of (WELLBUTRIN 14:02: mouth [place] ORAL) 34 daily. [facility] traZODONE 2021-06 Yes 100mg Take 100 Uni vers (DESYREL) 0-11 mg by ity of 100 mg 14:02: mouth at [place] tablet 34 bedtime. [facility] BUPROPION 2021-06 Yes [id number] 450mg Take 450 [facility] HCL 0-11 mg by ity of (WELLBUTRIN 14:02: mouth [place] ORAL) 34 daily. [facility] traZODONE 2021-06 Yes 100mg Take 100 Uni vers (DESYREL) 0-11 mg by ity of 100 mg 14:02: mouth at [place] tablet 34 bedtime. [facility] BUPROPION 2021-06 Yes [id number] 450mg Take 450 [facility] HCL 0-11 mg by ity of (WELLBUTRIN 14:02: mouth [place] ORAL) 34 daily. Medical Branch traZODONE 2021-06 Yes 100mg Take 100 Uni vers (DESYREL) 0-11 mg by ity of 100 mg 14:02: mouth at [place] tablet 34 bedtime. [facility] BUPROPION 2021-06 Yes [id number] 450mg Take 450 [facility] HCL 0-11 mg by ity of (WELLBUTRIN 14:02: mouth [place] ORAL) 34 daily. [facility] traZODONE 2021-06 Yes 100mg Take 100 Uni vers (DESYREL) 0-11 mg by ity of 100 mg 14:02: mouth at [place] tablet 34 bedtime. [facility] BUPROPION 2021-06 Yes [id number] 450mg Take 450 [facility] HCL 0-11 mg by ity of (WELLBUTRIN 14:02: mouth [place] ORAL) 34 daily. [facility] traZODONE 2021-06 Yes 100mg Take 100 Uni vers (DESYREL) 0-11 mg by ity of 100 mg 14:02: mouth at [place] tablet 34 bedtime. [facility] BUPROPION 2021-06 Yes [id number] 450mg Take 450 [facility] HCL 0-11 mg by ity of (WELLBUTRIN 14:02: mouth [place] ORAL) 34 daily. [facility] traZODONE 2021-06 Yes 100mg Take 100 Uni vers (DESYREL) 0-11 mg by ity of 100 mg 14:02: mouth at [place] tablet 34 bedtime. [facility] BUPROPION 2021-06 Yes [id number] 450mg Take 450 [facility] HCL 0-11 mg by ity of (WELLBUTRIN 14:02: mouth [place] ORAL) 34 daily. [facility] traZODONE 2021-06 Yes 100mg Take 100 Uni vers (DESYREL) 0-11 mg by ity of 100 mg 14:02: mouth at [place] tablet 34 bedtime. [facility] BUPROPION 2021-06 Yes [id number] 450mg Take 450 [facility] HCL 0-11 mg by ity of (WELLBUTRIN 14:02: mouth [place] ORAL) 34 daily. [facility] traZODONE 2021-06 Yes 100mg Take 100 Uni vers (DESYREL) 0-11 mg by ity of 100 mg 14:02: mouth at [place] tablet 34 bedtime. [facility] BUPROPION 2021-06 Yes [id number] 450mg Take 450 [facility] HCL 0-11 mg by ity of (WELLBUTRIN 14:02: mouth [place] ORAL) 34 daily. Medical Branch traZODONE 2021-06 Yes 100mg Take 100 Uni vers (DESYREL) 0-11 mg by ity of 100 mg 14:02: mouth at [place] tablet 34 bedtime. [facility] BUPROPION 2021-06 Yes [id number] 450mg Take 450 [facility] HCL 0-11 mg by ity of (WELLBUTRIN 14:02: mouth [place] ORAL) 34 daily. [facility] traZODONE 2021-06 Yes 100mg Take 100 Uni vers (DESYREL) 0-11 mg by ity of 100 mg 14:02: mouth at [place] tablet 34 bedtime. [facility] BUPROPION 2021-06 Yes [id number] 450mg Take 450 [facility] HCL 0-11 mg by ity of (WELLBUTRIN 14:02: mouth [place] ORAL) 34 daily. [facility] traZODONE 2021-06 Yes 100mg Take 100 Uni vers (DESYREL) 0-11 mg by ity of 100 mg 14:02: mouth at [place] tablet 34 bedtime. [facility] BUPROPION 2021-06 Yes [id number] 450mg Take 450 [facility] HCL 0-11 mg by ity of (WELLBUTRIN 14:02: mouth [place] ORAL) 34 daily. [facility] traZODONE 2021-06 Yes 100mg Take 100 Uni vers (DESYREL) 0-11 mg by ity of 100 mg 14:02: mouth at [place] tablet 34 bedtime. [facility] BUPROPION 2021-06 Yes [id number] 450mg Take 450 [facility] HCL 0-11 mg by ity of (WELLBUTRIN 14:02: mouth [place] ORAL) 34 daily. [facility] traZODONE 2021-06 Yes 100mg Take 100 Uni vers (DESYREL) 0-11 mg by ity of 100 mg 14:02: mouth at [place] tablet 34 bedtime. [facility] BUPROPION 2021-06 Yes [id number] 450mg Take 450 [facility] HCL 0-11 mg by ity of (WELLBUTRIN 14:02: mouth [place] ORAL) 34 daily. Medical Branch traZODONE 2021-06 Yes 100mg Take 100 Uni vers (DESYREL) 0-11 mg by ity of 100 mg 14:02: mouth at [place] tablet 34 bedtime. Medical Branch BUPROPION 2021-06 Yes [id number] 450mg Take 450 [facility] HCL 0-11 mg by ity of (WELLBUTRIN 14:02: mouth [place] ORAL) 34 daily. Medical Branch traZODONE 2021-06 Yes 100mg Take 100 Uni vers (DESYREL) 0-11 mg by ity of 100 mg 14:02: mouth at [place] tablet 34 bedtime. Medical Branch BUPROPION 2021-06 Yes [id number] 450mg Take 450 [facility] HCL 0-11 mg by ity of (WELLBUTRIN 14:02: mouth [place] ORAL) 34 daily. Medical Branch traZODONE 2021-06 Yes 100mg Take 100 [facility] vers (DESYREL) 0-11 mg by ity of 100 mg 14:02: mouth at [place] tablet 34 bedtime. Medical Branch gabapentin 2021-06 Yes [id number] 600mg Take 600 [facility] enacarbil 0-11 mg by ity of (HORIZANT) 00:00: mouth [place] 600 mg TbSR 00 (two) Medical times Branch daily. gabapentin 2021-06 Yes [id number] 600mg Take 600 [facility] enacarbil 0-11 mg by ity of (HORIZANT) 00:00: mouth [place] 600 mg TbSR 00 (two) Medical times Branch daily. gabapentin 2021-06 Yes [id number] 600mg Take 600 [facility] enacarbil 0-11 mg by ity of (HORIZANT) 00:00: mouth [place] 600 mg TbSR 00 (two) Medical times Branch daily. gabapentin 2021-06 Yes [id number] 600mg Take 600 [facility] enacarbil 0-11 mg by ity of (HORIZANT) 00:00: mouth [place] 600 mg TbSR 00 (two) Medical times Branch daily. gabapentin 2021-06 Yes [id number] 600mg Take 600 [facility] enacarbil 0-11 mg by ity of (HORIZANT) 00:00: mouth [place] 600 mg TbSR 00 (two) Medical times Branch daily. gabapentin 2021-06 Yes [id number] 600mg Take 600 [facility] enacarbil 0-11 mg by ity of (HORIZANT) 00:00: mouth [place] 600 mg TbSR 00 (two) Medical times Branch daily. gabapentin 2021-06 Yes [id number] 600mg Take 600 [facility] enacarbil 0-11 mg by ity of (HORIZANT) 00:00: mouth [place] 600 mg TbSR 00 (two) Medical times Branch daily. gabapentin 2021-06 Yes [id number] 600mg Take 600 [facility] enacarbil 0-11 mg by ity of (HORIZANT) 00:00: mouth [place] 600 mg TbSR 00 (two) Medical times Branch daily. gabapentin 2021-06 Yes [id number] 600mg Take 600 [facility] enacarbil 0-11 mg by ity of (HORIZANT) 00:00: mouth [place] 600 mg TbSR 00 (two) Medical times Branch daily. gabapentin 2021-06 Yes [id number] 600mg Take 600 [facility] enacarbil 0-11 mg by ity of (HORIZANT) 00:00: mouth [place] 600 mg TbSR 00 (two) Medical times Branch daily. gabapentin 2021-06 Yes [id number] 600mg Take 600 [facility] enacarbil 0-11 mg by ity of (HORIZANT) 00:00: mouth 2 [place] 600 mg TbSR 00 (two) Medical times Branch daily. gabapentin 2021-06 Yes [id number] 600mg Take 600 [facility] enacarbil 0-11 mg by ity of (HORIZANT) 00:00: mouth 2 [place] 600 mg TbSR 00 (two) Medical times Branch daily. gabapentin 2021-06 Yes [id number] 600mg Take 600 [facility] enacarbil 0-11 mg by ity of (HORIZANT) 00:00: mouth 2 [place] 600 mg TbSR 00 (two) Medical times Branch daily. gabapentin 2021-06 Yes [id number] 600mg Take 600 [facility] enacarbil 0-11 mg by ity of (HORIZANT) 00:00: mouth 2 [place] 600 mg TbSR 00 (two) Medical times Branch daily. gabapentin 2021-06 Yes [id number] 600mg Take 600 [facility] enacarbil 0-11 mg by ity of (HORIZANT) 00:00: mouth 2 [place] 600 mg TbSR 00 (two) Medical times Branch daily. gabapentin 2021-06 Yes [id number] 600mg Take 600 [facility] enacarbil 0-11 mg by ity of (HORIZANT) 00:00: mouth 2 [place] 600 mg TbSR 00 (two) Medical times Branch daily. gabapentin 2021-06 Yes [id number] 600mg Take 600 [facility] enacarbil 0-11 mg by ity of (HORIZANT) 00:00: mouth 2 [place] 600 mg TbSR 00 (two) Medical times Branch daily. gabapentin 2021-06 Yes [id number] 600mg Take 600 [facility] enacarbil 0-11 mg by ity of (HORIZANT) 00:00: mouth 2 [place] 600 mg TbSR 00 (two) Medical times Branch daily. gabapentin 2021-06 Yes [id number] 600mg Take 600 [facility] enacarbil 0-11 mg by ity of (HORIZANT) 00:00: mouth 2 [place] 600 mg TbSR 00 (two) Medical times Branch daily. gabapentin 2021-06 Yes [id number] 600mg Take 600 [facility] enacarbil 0-11 mg by ity of (HORIZANT) 00:00: mouth 2 [place] 600 mg TbSR 00 (two) Medical times Branch daily. gabapentin 2021-06 Yes [id number] 600mg Take 600 [facility] enacarbil 0-11 mg by ity of (HORIZANT) 00:00: mouth 2 [place] 600 mg TbSR 00 (two) Medical times Branch daily. gabapentin 2021-06 Yes [id number] 600mg Take 600 [facility] enacarbil 0-11 mg by ity of (HORIZANT) 00:00: mouth 2 [place] 600 mg TbSR 00 (two) Medical times Branch daily. gabapentin 2021-06 Yes [id number] 600mg Take 600 [facility] enacarbil 0-11 mg by ity of (HORIZANT) 00:00: mouth 2 [place] 600 mg TbSR 00 (two) Medical times Branch daily. gabapentin 2021-06 Yes [id number] 600mg Take 600 [facility] enacarbil 0-11 mg by ity of (HORIZANT) 00:00: mouth 2 [place] 600 mg TbSR 00 (two) Medical times Branch daily. gabapentin 2021-06 Yes [id number] 600mg Take 600 [facility] enacarbil 0-11 mg by ity of (HORIZANT) 00:00: mouth 2 [place] 600 mg TbSR 00 (two) Medical times Branch daily. gabapentin 2021-06 Yes [id number] 600mg Take 600 [facility] enacarbil 0-11 mg by ity of (HORIZANT) 00:00: mouth 2 [place] 600 mg TbSR 00 (two) Medical times Branch daily. gabapentin 2021-06 Yes [id number] 600mg Take 600 [facility] enacarbil 0-11 mg by ity of (HORIZANT) 00:00: mouth [place] 600 mg TbSR 00 (two) Medical times Branch daily. gabapentin 2021-06 Yes [id number] 600mg Take 600 [facility] enacarbil 0-11 mg by ity of (HORIZANT) 00:00: mouth 2 [place] 600 mg TbSR 00 (two) Medical times Branch daily. Gabapentin 2021-06 Yes 600mg Take 600 [facility] En[facility]bil 0-11 mg by [place] (HORIZANT) 00:00: mouth. of 600 MG TBCR 00 Medicin e Gabapentin 2021-06 Yes 600mg Take 600 [facility] Enacarbil 0-11 mg by [facility] (HORIZANT) 00:00: mouth. of 600 MG TBCR 00 Medicin e Gabapentin 2021-06 Yes 600mg Take 600 [facility] Enacarbil 0-11 mg by [place] (HORIZANT) 00:00: mouth. of 600 MG TBCR 00 Medicin e metoprolol 2021-06 Yes Univers tartrate 25 0-09 ity of mg tablet 00:00: [place] [facility] metoprolol 2021-06 Yes [facility] tartrate 25 0-09 ity of mg tablet 00:00: [place] [facility] metoprolol 2021-06 Yes Univers tartrate 25 0-09 ity of mg tablet 00:00: [place] [facility] metoprolol 2021-06 Yes Univers tartrate 25 0-09 ity of mg tablet 00:00: [place] [facility] metoprolol 2021-06 Yes Univers tartrate 25 0-09 ity of mg tablet 00:00: [facility] metoprolol 2021-06 Yes [facility] tartrate 25 0-09 ity of mg tablet 00:00: [place] [facility] metoprolol 2021-06 Yes Univers tartrate 25 0-09 ity of mg tablet 00:00: [place] [facility] metoprolol 2021-06 Yes Univers tartrate 25 0-09 ity of mg tablet 00:00: [place] [facility] metoprolol 2021- Yes Univers tartrate 25 0-09 ity of mg tablet 00:00: 09 [address] metoprolol 2021-06 Yes [facility] tartrate 25 0-09 ity of mg tablet 00:00: [address] metoprolol 2021-06 Yes [facility] tartrate 25 0-09 ity of mg tablet 00:00: [address] metoprolol 2021-06 Yes [facility] tartrate 25 0-09 ity of mg tablet 00:00: [address] metoprolol 2021-06 Yes [facility] tartrate 25 0-09 ity of mg tablet 00:00: [address] metoprolol 2021-06 Yes [facility] tartrate 25 0-09 ity of mg tablet 00:00: [address] metoprolol 2021-06 Yes [facility] tartrate 25 0-09 ity of mg tablet 00:00: [address] metoprolol 2021-06 Yes [facility] tartrate 25 0-09 ity of mg tablet 00:00: [address] metoprolol 2021-06 Yes [facility] tartrate 25 0-09 ity of mg tablet 00:00: [address] metoprolol 2021-06 Yes [facility] tartrate 25 0-09 ity of mg tablet 00:00: [address] metoprolol 2021- Yes [facility] tartrate 25 0-09 ity of mg tablet 00:00: [address] metoprolol 2021- Yes [facility] tartrate 25 0-09 ity of mg tablet 00:00: [address] metoprolol 2021- Yes [facility] tartrate 25 0-09 ity of mg tablet 00:00: [address] metoprolol 2021- Yes [facility] tartrate 25 0-09 ity of mg tablet 00:00: [address] metoprolol 2021- Yes [facility] tartrate 25 0-09 ity of mg tablet 00:00: [address] metoprolol 2021- Yes [facility] tartrate 25 0-09 ity of mg tablet 00:00: [address] metoprolol 2021- Yes [facility] tartrate 25 0-09 ity of mg tablet 00:00: [facility] metoprolol 2021-06 Yes [facility] tartrate 25 0-09 ity of mg tablet 00:00: [facility] metoprolol 2021- Yes [facility] tartrate 25 0-09 ity of mg tablet 00:00: [facility] metoprolol 2021-06 Yes [facility] tartrate 25 0-09 ity of mg tablet 00:00: [facility] lamoTRIgine 2021-06 Yes [facility]iver [facility] 300 mg TR24 0-05 ity of 00:00: [facility] lamoTRIgine 2021-06 Yes [facility]iver s 300 mg TR24 0-05 ity of 00:00: [facility] lamoTRIgine 2021-06 Yes Univer s 300 mg TR24 0-05 ity of 00:00: [facility] lamoTRIgine 2021-06 Yes Univer s 300 mg TR24 0-05 ity of 00:00: [facility] lamoTRIgine 2021-06 Yes Univer s 300 mg TR24 0-05 ity of 00:00: [facility] lamoTRIgine 2021-06 Yes Univer s 300 mg TR24 0-05 ity of 00:00: [facility] lamoTRIgine 2021-06 Yes Univer s 300 mg TR24 0-05 ity of 00:00: [facility] lamoTRIgine 2021-06 Yes Univer s 300 mg TR24 0-05 ity of 00:00: [facility] lamoTRIgine 2021-06 Yes Univer s 300 mg TR24 0-05 ity of 00:00: [facility] lamoTRIgine 2021-06 Yes Univer s 300 mg TR24 0-05 ity of 00:00: [facility] lamoTRIgine 2021-06 Yes Univer s 300 mg TR24 0-05 ity of 00:00: [facility] lamoTRIgine 2021-06 Yes Univer s 300 mg TR24 0-05 ity of 00:00: [place] [address] [facility] lamoTRIgine 2021-06 Yes Univer s 300 mg TR24 0-05 ity of 00:00: [place] [facility] lamoTRIgine 2021-1 Yes Univer s 300 mg TR24 0-05 ity of 00:00: [facility] lamoTRIgine 2021-06 Yes Univer s 300 mg TR24 0-05 ity of 00:00: [facility] lamoTRIgine 2021-06 Yes Univer s 300 mg TR24 0-05 ity of 00:00: [facility] lamoTRIgine 2021-06 Yes Univer s 300 mg TR24 0-05 ity of 00:00: [facility] lamoTRIgine 2021- Yes Univer s 300 mg TR24 0-05 ity of 00:00: [facility] lamoTRIgine 2021-06 Yes Univer s 300 mg TR24 0-05 ity of 00:00: [facility] lamoTRIgine 2021-06 Yes Univer s 300 mg TR24 0-05 ity of 00:00: [facility] lamoTRIgine 2021-06 Yes Univer s 300 mg TR24 0-05 ity of 00:00: [facility] lamoTRIgine 2021- Yes Univer s 300 mg TR24 0-05 ity of 00:00: [facility] lamoTRIgine 1 Yes Univer s 300 mg TR24 0-05 ity of 00:00: [facility] lamoTRIgine 2021-1 Yes Univer s 300 mg TR24 0-05 ity of 00:00: [facility] lamoTRIgine 2021-1 Yes Univer s 300 mg TR24 0-05 ity of 00:00: [facility] lamoTRIgine 2021-1 Yes Univer s 300 mg TR24 0-05 ity of 00:00: [facility] lamoTRIgine 1 Yes Univer s 300 mg TR24 0-05 ity of 00:00: [facility] lamoTRIgine 2021-1 Yes Univer s 300 mg TR24 0-05 ity of 00:00: [facility] ondansetron 2021-0 2021- No 4mg Q6H Take 1 [facility] (ZOFRAN) 4 9-30 10-04 tablet (4 st MG tablet 00:00: 04:59 mg total) [facility] :[facility] by mouth l every 6 (six) hours for 3 days. ondansetron 2021-0 2022- No 4mg Q6H Take 1 [facility] (ZOFRAN) 4 9-30 10-04 tablet (4 st MG tablet 00:00: 04:59 mg total) [facility] 00 :00 by mouth l every 6 (six) hours for 3 days. ondansetron 2021-0 2022- No 4mg Q6H Take 1 [facility] (ZOFRAN) 4 9-30 10-04 tablet (4 st MG tablet 00:00: 04:59 mg total) [facility] 00 :00 by mouth l every 6 (six) hours for 3 days. ondansetron 2-0 2022- No 4mg Q6H Take 1 [facility] (ZOFRAN) 4 9-30 10-04 tablet (4 st MG tablet 00:00: 04:59 mg total) [facility] 00 :00 by mouth l every 6 (six) hours for 3 days. dextroamphe 0 Yes Univer s tamine-amph 9-29 ity of etamine 15 00:00: [place] mg tablet 00 [facility] hydrOXYzine 2021-0 Yes Univer s 25 mg 9-29 ity of tablet 00:00: [place] 00 [facility] dextroamphe 2021-0 Yes Univer s tamine-amph 9-29 ity of etamine 15 00:00: [place] mg tablet 00 [facility] hydrOXYzine 2021-0 Yes Univer s 25 mg 9-29 ity of tablet 00:00: [place] 00 [facility] dextroamphe 2021-0 Yes Univer s tamine-amph 9-29 ity of etamine 15 00:00: [place] mg tablet 00 [facility] hydrOXYzine 2021-0 Yes Univer s 25 mg 9-29 ity of tablet 00:00: [place] 00 [facility] dextroamphe 2021-0 Yes Univer s tamine-amph 9-29 ity of etamine 15 00:00: [place] mg tablet 00 [facility] hydrOXYzine 2021-0 Yes Univer s 25 mg 9-29 ity of tablet 00:00: [place] 00 [facility] dextroamphe 2021-0 Yes Univer s tamine-amph 9-29 ity of etamine 15 00:00: [place] mg tablet 00 [facility] hydrOXYzine 0 Yes Univer s 25 mg [...] of tablet 00:00: [place] 00 [facility] PAXLOVID, 2021-0 2021- No [facility] 300/100, 20 9-27 10-13 [facility] x 150 MG & 00:00: 00:00 of 10 x 100MG 00 :00 Medicin tablet e therapy pack cefpodoxime 2022- No 100mg Q.5D Take [address] (VANTIN) 03-18 [facility] MG 00:00: 00:00 (100 mg Medical tablet 00 :00 total) by Center mouth 2 (two) times daily for 1 day. cefpodoxime 2021-0 2022- No 100mg Q.5D Take [address] (VANTIN) 03-18 tablet [facility] 100 MG 00:00: 00:00 (100 mg Medical tablet 00 :00 total) by Center mouth 2 (two) times daily for 1 day. cefpodoxime 2021-0 2021- No 100mg Q.5D Take [address] (VANTIN) 03-18 [facility] 100 MG 00:00: 00:00 (100 mg Medical tablet 00 :00 total) by Center mouth 2 (two) times daily for 1 day. cefpodoxime 2021-0 2- No 100mg Q.5D Take [address] (VANTIN) 03-18 tablet [facility] 100 MG 00:00: 00:00 (100 mg Medical tablet 00 :00 total) by Center mouth 2 (two) times daily for 1 day. dextroamphe 2021-2021- No 15mg QD Take [address] [facility] tamine-amph 03-17 by mouth Ady es etamine 15 15:26: 00:00 every Medic al mg Tab 04 :00 morning . Center dextroamphe 2021-2021- No 15mg QD Take [address] [facility] tamine-amph 03-17 by mouth Ady es etamine 15 15:26: 00:00 every Medic al mg Tab 04 :00 morning . Center dextroamphe 2021-0 2- No 15mg QD Take [address] [facility] tamine-amph 03-17 by mouth Ady es etamine 15 15:26: 00:00 every Medic al mg Tab 04 :00 morning . [place] dextroamphe 2021-0 2- No 15mg QD Take [address] [facility] tamine-amph 9-24 09-24 by mouth Ady es etamine 15 15:26: 00:00 every Medic al mg Tab 04 :00 morning . [place] methocarbam 2021-0 Yes Univer s oL 500 mg 9-24 ity of tablet 00:00: [place] [address] [facility] fluconazole 2-0 Yes Univer s 150 mg 9-24 ity of tablet 00:00: [place] [address] [facility] methocarbam 2022-0 Yes Univer s oL 500 mg 9-24 ity of tablet 00:00: [place] [address] [facility] fluconazole 2-0 Yes Univer s 150 mg 9-24 ity of tablet 00:00: [place] [address] [facility] methocarbam 2022-0 Yes Univer s oL 500 mg 9-24 ity of tablet 00:00: [place] [address] [facility] fluconazole 2022-0 Yes Univer s 150 mg 9-24 ity of tablet 00:00: [place] [address] [facility] methocarbam 2022-0 Yes Univer s oL 500 mg 9-24 ity of tablet 00:00: [place] [address] [facility] fluconazole 2022-0 Yes Univer s 150 mg 9-24 ity of tablet 00:00: [place] [address] [facility] methocarbam 2022-0 Yes Univer s oL 500 mg 9-24 ity of tablet 00:00: [place] [address] [facility] fluconazole 2022-0 Yes Univer s 150 mg 9-24 ity of tablet 00:00: [address] Branch methocarbam 2022-0 Yes Univer s oL 500 mg 9-24 ity of tablet 00:00: [place] [address] [facility] fluconazole 2022-0 Yes Univer s 150 mg 9-24 ity of tablet 00:00: [place] [address] [facility] methocarbam 2022-0 Yes Univer s oL 500 mg 9-24 ity of tablet 00:00: [place] [address] [facility] fluconazole 2022-0 Yes Univer s 150 mg 9-24 ity of tablet 00:00: [place] [address] [facility] methocarbam 2022-0 Yes Univer s oL 500 mg 9-24 ity of tablet 00:00: [place] [address] [facility] fluconazole 2022-0 Yes Univer s 150 mg 9-24 ity of tablet 00:00: [place] [address] [facility] methocarbam 2022-0 Yes Univer s oL 500 mg 9-24 ity of tablet 00:00: [place] [address] [facility] fluconazole 2022-0 Yes Univer s 150 mg 9-24 ity of tablet 00:00: [place] 00 [facility] methocarbam 2022-0 Yes Univer s oL 500 mg 9-24 ity of tablet 00:00: [place] 00 [facility] fluconazole 2022-0 Yes Univer s 150 mg 9-24 ity of tablet 00:00: [place] 00 [facility] methocarbam 2022-0 Yes Univer s oL 500 mg 9-24 ity of tablet 00:00: [place] 00 [facility] fluconazole 2022-0 Yes Univer s 150 mg 9-24 ity of tablet 00:00: [place] 00 [facility] methocarbam 2022-0 Yes Univer s oL 500 mg 9-24 ity of tablet 00:00: [place] [address] [facility] fluconazole 2022-0 Yes Univer s 150 mg 9-24 ity of tablet 00:00: [place] [address] [facility] methocarbam 2022-0 Yes Univer s oL 500 mg 9-24 ity of tablet 00:00: [place] [address] [facility] fluconazole 2022-0 Yes Univer s 150 mg 9-24 ity of tablet 00:00: [place] [address] [facility] methocarbam 2022-0 Yes Univer s oL 500 mg 9-24 ity of tablet 00:00: [place] [address] [facility] fluconazole 2022-0 Yes Univer s 150 mg 9-24 ity of tablet 00:00: [place] [address] [facility] methocarbam 2022-0 Yes Univer s oL 500 mg 9-24 ity of tablet 00:00: [place] [address] [facility] fluconazole 2022-0 Yes Univer s 150 mg 9-24 ity of tablet 00:00: [place] [facility] methocarbam 2022-0 Yes Univer s oL 500 mg 9-24 ity of tablet 00:00: [place] [address] [facility] fluconazole 2022-0 Yes Univer s 150 mg 9-24 ity of tablet 00:00: [place] [address] [facility] methocarbam 2022-0 Yes Univer s oL 500 mg 9-24 ity of tablet 00:00: [place] [address] [facility] fluconazole 2022-0 Yes Univer s 150 mg 9-24 ity of tablet 00:00: [place] [address] [facility] methocarbam 2022-0 Yes Univer s oL 500 mg 9-24 ity of tablet 00:00: [place] [address] [facility] fluconazole 2022-0 Yes Univer s 150 mg 9-24 ity of tablet 00:00: [place] 00 [facility] methocarbam 2022-0 Yes Univer s oL 500 mg 9-24 ity of tablet 00:00: [place] 00 [facility] fluconazole 2022-0 Yes Univer s 150 mg 9-24 ity of tablet 00:00: [place] 00 [facility] methocarbam 2022-0 Yes Univer s oL 500 mg 9-24 ity of tablet 00:00: [place] [address] [facility] fluconazole 2022-0 Yes Univer s 150 mg 9-24 ity of tablet 00:00: [place] [address] [facility] methocarbam 2022-0 Yes Univer s oL 500 mg 9-24 ity of tablet 00:00: [place] [address] [facility] fluconazole 2022-0 Yes Univer s 150 mg 9-24 ity of tablet 00:00: [place] [address] [facility] methocarbam 2022-0 Yes Univer s oL 500 mg 9-24 ity of tablet 00:00: [place] [address] [facility] fluconazole 2022-0 Yes Univer s 150 mg 9-24 ity of tablet 00:00: [place] [address] [facility] methocarbam 2022-0 Yes Univer s oL 500 mg 9-24 ity of tablet 00:00: [place] [address] [facility] fluconazole 2022-0 Yes Univer s 150 mg 9-24 ity of tablet 00:00: [place] [address] [facility] methocarbam 2022-0 Yes Univer s oL 500 mg 9-24 ity of tablet 00:00: [place] [address] [facility] fluconazole 2022-0 Yes Univer s 150 mg 9-24 ity of tablet 00:00: [place] [address] [facility] methocarbam 2022-0 Yes Univer s oL 500 mg 9-24 ity of tablet 00:00: [place] [address] [facility] fluconazole 2022-0 Yes Univer s 150 mg 9-24 ity of tablet 00:00: [place] [address] [facility] methocarbam 2022-0 Yes Univer s oL 500 mg 9-24 ity of tablet 00:00: [place] [address] [facility] fluconazole 2022-0 Yes Univer s 150 mg 9-24 ity of tablet 00:00: [place] [address] [facility] methocarbam 2022-0 Yes Univer s oL 500 mg 9-24 ity of tablet 00:00: [place] [address] [facility] fluconazole 2022-0 Yes Univer s 150 mg 9-24 ity of tablet 00:00: [place] [address] [facility] methocarbam 2021-0 Yes Univer s oL 500 mg 9-24 ity of tablet 00:00: [place] [facility] fluconazole 2021-0 Yes Univer s 150 mg 9-24 ity of tablet 00:00: [place] [facility] methocarbam 2021-0 Yes [facility] 03-17 [place] (ROBAXIN) 00:00: of 500 MG 00 Medicin tablet e methocarbam 2021-0 Yes [facility] 24 [place] (ROBAXIN) 00:00: of 500 MG 00 Medicin tablet e ibuprofen 2021-0 Yes 200mg Take 200 [place] [facility] (MOTRIN) 9-24 mg by [place] 400 MG 00:00: mouth of tablet 00 every 6 Medicin hours as e needed. methocarbam 2021-0 Yes [facility] 03-17 [place] (ROBAXIN) 00:00: of 500 MG 00 Medicin tablet e ibuprofen 2021-0 Yes 200mg Take 200 [place] [facility] (MOTRIN) 9-24 mg by [place] 400 MG 00:00: mouth of tablet 00 every 6 Medicin hours as e needed. methocarbam 2021-0 Yes [facility] 03-17 [place] (ROBAXIN) 00:00: of 500 MG 00 Medicin tablet e ibuprofen 2021-0 Yes 200mg Take 200 [place] [facility] (MOTRIN) 9-24 mg by [place] 400 MG 00:00: mouth of tablet 00 every 6 Medicin hours as e needed. HYDROcodone 2021-0 Yes 1{tbl} Take [address] -acetaminop 9-24 tablet by Ady es hen (NORCO 00:00: mouth Medica l 5-325) 00 every 4 Center 5-325 mg (four) per tablet hours as needed. Max Daily Amount: 6 tablets HYDROcodone 2021-0 Yes 1{tbl} Take [address] -acetaminop 9-24 tablet by Ady es hen (NORCO 00:00: mouth Medica l 5-325) 00 every 4 Center 5-325 mg (four) per tablet hours as needed. Max Daily Amount: 6 tablets HYDROcodone 2021-0 Yes 1{tbl} Take [address] -acetaminop 9-24 tablet by Ady es hen (NORCO 00:00: mouth Medica l 5-325) 00 every 4 Center 5-325 mg (four) per tablet hours as needed. Max Daily Amount: 6 tablets HYDROcodone Yes 1{tbl} Take [address] -acetaminop 03-17 tablet by Ady aguilar (NORCO 00:00: mouth Medica l 5-325) 00 every 4 Center 5-325 mg (four) per tablet hours as needed. Max Daily Amount: 6 tablets nitrofurant 2021- No 100mg Q.5D Take [address] oin, 03-17 11-14 capsule [facility] macrocrysta 00:00: 00:00 (100 mg Me dical l-monohydra 00 :00 total) by [facility], mouth 2 (MACROBID) (two) 100 MG times capsule daily. nitrofurant 2021- No 100mg Q.5D Take [address] oin, 03-17 11-14 capsule [facility] macrocrysta 00:00: 00:00 (100 mg Me dical l-monohydra 00 :00 total) by [facility], mouth 2 (MACROBID) (two) 100 MG times capsule daily. nitrofurant 2021- No 100mg Q.5D Take [address] oin, 03-17 11-14 capsule [facility] macrocrysta 00:00: 00:00 (100 mg Me dical l-monohydra 00 :00 total) by [facility], mouth 2 (MACROBID) (two) 100 MG times capsule daily. nitrofurant 2021- No 100mg Q.5D Take [address] oin, 03-17 11-14 capsule [facility] macrocrysta 00:00: 00:00 (100 mg Me dical l-monohydra 00 :00 total) by [facility], mouth 2 (MACROBID) (two) 100 MG times capsule daily. ibuprofen 2021-2021- No 400mg Take [address] [facility] (ADVIL,MOTR [...] (four) times daily for 10 days. ibuprofen 2022-0 2022- No 400mg Take [address] [facility] (ADVIL,MOTR 03-17 tablet [facility] [place]) 400 MG 00:00: 23:59 (400 mg Med ical tablet 00 :00 total) by Center mouth every 6 (six) hours as needed for up to 10 days. methocarbam 2022-0 2022- No 500mg Q.25D Take [address] oL 03-17 tablet [facility] (Robaxin) 00:00: 23:59 (500 mg Medi tyler 500 MG 00 :00 total) by Center tablet mouth 4 (four) times daily for 10 days. ibuprofen 2021-0 2022- No 400mg Take [address] [facility] (ADVIL,MOTR [...] times daily for 10 days. ibuprofen 2021-0 2022- No 400mg Take [address] [facility] (ADVIL,MOTR 03-17 tablet [facility] [place]) 400 MG 00:00: 23:59 (400 mg Med ical tablet 00 :00 total) by Center mouth every 6 (six) hours as needed for up to 10 days. methocarbam 2-0 2022- No 500mg Q.25D Take [address] oL 03-17 10-04 tablet [facility] (Robaxin) 00:00: 23:59 (500 mg Medi tyler 500 MG 00 :00 total) by Center tablet mouth 4 (four) times daily for 10 days. lamoTRIgine 2021-0 2022- No 250mg QD Take [address] [facility] 250 mg TR24 03-15 09-22 mg by [facility] 01:30: 00:00 mouth Medical 29 :00 nightly . [place] lamoTRIgine 2021- No 250mg QD Take [address] [facility] 250 mg TR24 03-15 mg by [facility] 01:30: 00:00 mouth Medical 29 :00 nightly . [place] lamoTRIgine 2021- No 250mg QD Take [address] [facility] 250 mg TR24 03-15 mg by [facility] :30: 00:00 mouth Medical 29 :00 nightly . [place] lamoTRIgine 2021- No 250mg QD Take [address] 250 mg TR24 03-15 mg by [facility] :30: 00:00 mouth Medical 29 :00 nightly . [place] dextroamphe 2021- No Take by [facility] tamine-amph 03-15 mouth as Ady es etamine 5 01:29: 00:00 directed Med ical mg Tab 50 :00 In the [place] afternoon. dextroamphe 2021- No Take by [facility] tamine-amph 03-15 mouth as Ady es etamine 5 01:29: 00:00 directed Med ical mg Tab 50 :00 In the [place] afternoon. dextroamphe 2021- No Take by [facility] tamine-amph 03-15 mouth as Ady es etamine 5 01:29: 00:00 directed Med ical mg Tab 50 :00 In the [place] afternoon. dextroamphe 2021- No Take by [facility] tamine-amph 03-15 mouth as Ady es etamine 5 01:29: 00:00 directed Med ical mg Tab 50 :00 In the [place] afternoon. LIALDA 1.2 Yes Univers gram EC 9-22 ity of tablet 00:00: [place] [address] [facility] LIALDA 1.2 2021- Yes Univers gram EC 9-22 ity of tablet 00:00: [place] [facility] LIALDA 1.2 2021- Yes Univers gram EC 9-22 ity of tablet 00:00: [place] [address] Medical [place] LIALDA 1.2 2021- Yes Univers gram EC 9-22 ity of [...] ity of tablet 00:00: [place] 00 [facility] [place] LIAA 1.2 2021-0 Yes Univers gram EC 9-22 ity of tablet 00:00: [place] 00 [facility] [place] LIAA 1.2 2021-0 Yes Univers gram EC 9-22 ity of tablet 00:00: [place] 00 [facility] LIAA 1.2 2021-0 Yes Univers gram EC 9-22 ity of tablet 00:00: [place] 00 Medical [place] LIAA 1.2 2021-0 Yes Univers gram EC 9-22 ity of tablet 00:00: [place] 00 [facility] LIAA 1.2 2021-0 Yes Univers gram EC 9-22 ity of tablet 00:00: [place] 00 [facility] [place] LIAA 1.2 2021-0 Yes Univers gram EC 9-22 ity of tablet 00:00: [place] 00 [facility] [place] LIAA 1.2 2021-0 Yes Univers gram EC 9-22 ity of tablet 00:00: [place] 00 [facility] [place] LIAA 1.2 2021-0 Yes Univers gram EC 9-22 ity of tablet 00:00: [place] 00 [facility] LIAA 1.2 2021-0 Yes Univers gram EC 9-22 ity of tablet 00:00: [place] 00 [facility] LIAA 1.2 2021-0 Yes Univers gram EC 9-22 ity of tablet 00:00: [place] 00 [facility] [place] LIAA 1.2 2021-0 Yes Univers gram EC 9-22 ity of tablet 00:00: [place] 00 [facility] [place] LIAA 1.2 2021-0 Yes Univers gram EC [...] gram EC 9-22 ity of tablet 00:00: [place] [facility] propranoloL 2021-0 2021- No 20mg [id number] Take [address] [facility] (INDERAL) 03-07 [id number] by mouth 3 [facility] 20 MG 16:36: 00:00 3D (three) Medical tablet 44 :00 times Center daily. propranoloL 2021-0 2021- No 20mg Q.[id number] Take [address] [facility] (INDERAL) 03-07 [id number] by mouth 3 [facility] 20 MG 16:36: 00:00 3D (three) Medical tablet 44 :00 times Center daily. propranoloL 2021-0 2021- No 20mg Q.[id number] Take [address] [facility] (INDERAL) 03-07 [id number] by mouth 3 [facility] 20 MG 16:36: 00:00 3D (three) Medical tablet 44 :00 times Center daily. propranoloL 2021-0 2021- No 20mg Q.[id number] Take [address] [facility] (INDERAL) 03-07 [id number] by mouth 3 [facility] 20 MG 16:36: 00:00 3D (three) Medical tablet 44 :00 times Center daily. fluticasone 2021-0 2022- No 1{puff} Inhale [address] [facility] -salmeterol 03-07 puff by Luke s (ADVAIR) 16:35: 00:00 mouth via Med ical 100-50 21 :00 inhaler Center mcg/dose every 12 diskus (twelve) inhaler hours. fluticasone 2021-0 2- No 1{puff} Inhale [address] [facility] -salmeterol -07 03-14 puff by Luke [facility] (ADVAIR) 16:35: 00:00 [...] every 12 diskus (twelve) inhaler hours. dexlansopra 2021-2021- No 60mg QD Take [address] [facility] zole 60 mg 03-07 by mouth Luke s capsule 16:34: 00:00 daily. Medical 27 :00 [place] dexlansopra 2021-0 2021- No 60mg QD Take [address] [facility] zole 60 mg 03-07 by mouth Luke s capsule 16:34: 00:00 daily. Medical 27 :00 [place] dexlansopra 2021-0 202- No 60mg QD Take [address] [facility] zole 60 mg 03-07 by mouth Luke s capsule 16:34: 00:00 daily. Medical 27 :00 [place] dexlansopra 2021-0 2022- No 60mg QD Take [address] [facility] zole 60 mg 03-07 by mouth Luke s capsule 16:34: 00:00 daily. Medical 27 :00 [place] ascorbic 2021-0 2022- No 3000mg QD Take 3,[address] [facility] acid, 03-07- mg by [facility] vitamin C, 16:33: 00:00 mouth Medic al (VITAMIN C) 56 :00 daily. Center 1000 MG tablet ascorbic 2021-0 2021- No 3000mg QD Take 3,[address] [facility] acid, 9-14 09-14 mg by [facility] vitamin C, 16:33: 00:00 mouth Medic al (VITAMIN C) 56 :00 daily. Center 1000 MG tablet ascorbic 2021-0 2- No 3000mg QD Take 3,[address] acid, 9-14 09-14 mg by [facility] vitamin C, 16:33: 00:00 mouth Medic al (VITAMIN C) 56 :00 daily. Center 1000 MG tablet ascorbic 2021-0 2021- No 3000mg QD Take 3,[address] [facility] acid, 9-14 09-14 mg by [facility] vitamin C, 16:33: 00:00 mouth Medic al (VITAMIN C) 56 :00 daily. Center 1000 MG tablet apixaban 2021-0 2021- No 5mg Q.5D Take [address] [facility] (ELIQUIS) 5 9- 09-14 by mouth 2 [facility] mg Tab 16:33: 00:00 (two) Medical tablet 29 :00 times Center daily. apixaban 2021-0 2021- No 5mg Q.5D Take [address] [facility] (ELIQUIS) 5 9-14 09-14 by mouth 2 L [facility] mg Tab 16:33: 00:00 (two) Medical tablet 29 :00 times Center daily. apixaban 2021-0 2- No 5mg Q.5D Take [address] [facility] (ELIQUIS) 5 9-14 09-14 by mouth 2 L [facility] mg Tab 16:33: 00:00 (two) Medical tablet 29 :00 times Center daily. apixaban 2021-0 2021- No 5mg Q.5D Take [address] [facility] (ELIQUIS) 5 9-14 09-14 by mouth 2 L [facility] mg Tab 16:33: 00:00 (two) Medical tablet 29 :00 times Center daily. fluticasone 2021-0 Yes 1{puff} Inhale 1 [facility] -salmeterol -14 Puff by Oralia sy (ADVAIR) 11:58: mouth of 500-50 02 every 12 Medicin MCG/DOSE hours. e inhaler fluticasone 2021-0 Yes 1{puff} Inhale 1 [facility] -salmeterol 9-14 Puff by Colle ge (ADVAIR) 11:58: mouth of 500-50 02 every 12 Medicin MCG/DOSE hours. e inhaler fluticasone Yes 1{puff} Inhale 1 [facility] -salmeterol 9-14 Puff by Colle ge (ADVAIR) 11:58: mouth of 500-50 02 every 12 Medicin MCG/DOSE hours. e inhaler fluticasone Yes 1{puff} Inhale 1 [facility] -salmeterol 9-14 Puff by Colle ge (ADVAIR) 11:58: mouth of 500-50 02 every 12 Medicin MCG/DOSE hours. e inhaler hydrocodone Yes [id number] 1{tbl} Take 1 [facility] -acetaminop 9-13 Tablet by Col lege hen ([employer]) 00:00: mouth of 5-325 mg 00 every 4 Medicin tablet hours as e needed for Pain. amphetamine Yes [id number] 1{tbl} Take 1 [facility] -dextroamph 9-13 Tablet by Col lege etamine 00:00: mouth of (ADDERALL, 00 daily. In Medi mari 15MG,) 15 the e MG tablet morning amphetamine Yes [id number] 1{tbl} Take 1 [facility] -dextroamph 9-13 Tablet by Col lege etamine 00:00: mouth of (ADDERALL, 00 daily. Medicin 5MG,) 5 MG Take in e tablet afternoon hydrOXYzine Yes [id number] 25mg Take 1 [facility] (ATARAX) 25 9-13 Tablet by Col lege MG tablet 00:00: mouth 3 of 00 times Medicin daily as e needed for Itching. trazodone 0 Yes [id number] 100mg Take 1 [facility] (DESYREL) 9-13 Tablet by Colle ge 100 MG 00:00: mouth of tablet 00 nightly. Medicin e LamoTRIgine 2021-0 Yes [id number] 1{tbl} Take 1 [facility] 300 MG TB24 9-13 Tablet by Col lege 00:00: mouth of 00 daily. Medicin e hydrocodone 2021-0 Yes [id number] 1{tbl} Take 1 [facility] -acetaminop 9-13 Tablet by Col lege hen (NORCO) 00:00: mouth of 5-325 mg 00 every 4 Medicin tablet hours as e needed for Pain. amphetamine 2021-0 Yes [id number] 1{tbl} Take 1 [facility] -dextroamph 9-13 Tablet by [facility]ge etamine 00:00: mouth of (ADDERALL, 00 daily. In Medi mari 15MG,) 15 the e MG tablet morning amphetamine 2021-0 Yes [id number] 1{tbl} Take 1 [facility] -dextroamph 9-13 Tablet by [facility] etamine 00:00: mouth of (ADDERALL, 00 daily. Medicin 5MG,) 5 MG Take in e tablet afternoon hydrOXYzine 2021-0 Yes [id number] 25mg Take 1 [facility] (ATARAX) 25 9-13 Tablet by Col lege MG tablet 00:00: mouth 3 of 00 times Medicin daily as e needed for Itching. trazodone 2021-0 Yes [id number] 100mg Take 1 [facility] (DESYREL) 9-13 Tablet by Colle ge 100 MG 00:00: mouth of tablet 00 nightly. Medicin e LamoTRIgine 2021-0 Yes [id number] 1{tbl} Take 1 [facility] 300 MG TB24 9-13 Tablet by Col [facility]ge 00:00: mouth of 00 daily. Medicin e hydrocodone 2021-0 Yes [id number] 1{tbl} Take 1 [facility] -acetaminop 9-13 Tablet by [facility] hen (NORCO) 00:00: mouth of 5-325 mg 00 every 4 Medicin tablet hours as e needed for Pain. amphetamine 2021- Yes [id number] 1{tbl} Take 1 [facility] -dextroamph 9-13 Tablet by Col lege etamine 00:00: mouth of (ADDERALL, 00 daily. In Medi mari 15MG,) 15 the e MG tablet morning amphetamine 2021-0 Yes [id number] 1{tbl} Take 1 [facility] -dextroamph 9-13 Tablet by Col lege etamine 00:00: mouth of (ADDERALL, 00 daily. Medicin 5MG,) 5 MG Take in e tablet afternoon hydrOXYzine 2021-0 Yes [id number] 25mg Take 1 [facility] (ATARAX) 25 9-13 Tablet by Col [facility] MG tablet 00:00: mouth 3 of 00 times Medicin daily as e needed for Itching. trazodone 2021-0 Yes [id number] 100mg Take 1 [facility] (DESYREL) 9-13 Tablet by Colle ge 100 MG 00:00: mouth of tablet 00 nightly. Medicin e LamoTRIgine 2021-0 Yes [id number] 1{tbl} Take 1 [facility] 300 MG TB24 9-13 Tablet by [facility]ge 00:00: mouth of 00 daily. Medicin e hydrocodone 2021-0 Yes [id number] 1{tbl} Take 1 [facility] -acetaminop 9-13 Tablet by [facility] hen (NORCO) 00:00: mouth of 5-325 mg 00 every 4 Medicin tablet hours as e needed for Pain. amphetamine 2021-0 Yes [id number] 1{tbl} Take 1 [facility] -dextroamph 9-13 Tablet by Col lege etamine 00:00: mouth of (ADDERALL, 00 daily. In Medi mari 15MG,) 15 the e MG tablet morning amphetamine 2021-0 Yes [id number] 1{tbl} Take 1 [facility] -dextroamph 9-13 Tablet by Col [facility]ge etamine 00:00: mouth of (ADDERALL, 00 daily. Medicin 5MG,) 5 MG Take in e tablet afternoon hydrOXYzine 2021-0 Yes [id number] 25mg Take 1 [facility] (ATARAX) 25 9-13 Tablet by Col [facility] MG tablet 00:00: mouth 3 of 00 times Medicin daily as e needed for Itching. trazodone 2021-0 Yes [id number] 100mg Take 1 [facility] (DESYREL) 9-13 Tablet by Col[facility] ge 100 MG 00:00: mouth of tablet 00 nightly. Medicin e LamoTRIgine 2021-0 Yes [id number] 1{tbl} Take 1 [facility] 300 MG TB24 9-13 Tablet by Col lege 00:00: mouth of 00 daily. Medicin e hydrOXYzine 2021-0 Yes [id number] 25mg Take 1 [facility] (ATARAX) 25 9-13 Tablet by Col lege MG tablet 00:00: mouth 3 of 00 times Medicin daily as e needed for Itching. trazodone 2-0 Yes [id number] 100mg Take 1 [facility] (DESYREL) 9-13 Tablet by Col[facility] ge 100 MG 00:00: mouth of tablet 00 nightly. Medicin e LamoTRIgine 2-0 Yes [id number] 1{tbl} Take 1 [facility] 300 MG TB24 9-13 Tablet by Col lege 00:00: mouth of 00 daily. Medicin e hydrOXYzine 2-0 Yes [id number] 25mg Take 1 [facility] (ATARAX) 25 9-13 Tablet by [facility] MG tablet 00:00: mouth 3 of 00 times Medicin daily as e needed for Itching. trazodone 2-0 Yes [id number] 100mg Take 1 [facility] (DESYREL) 9-13 Tablet by Colle ge 100 MG 00:00: mouth of tablet 00 nightly. Medicin e LamoTRIgine 2021-0 Yes [id number] 1{tbl} Take 1 [facility] 300 MG TB24 9-13 Tablet by [facility]ge 00:00: mouth of 00 daily. Medicin e hydrOXYzine 2021-0 Yes [id number] 25mg Take 1 [facility] (ATARAX) 25 9-13 Tablet by Col [facility] MG tablet 00:00: mouth 3 of 00 times Medicin daily as e needed for Itching. trazodone 2-0 Yes [id number] 100mg Take 1 [facility] (DESYREL) 9-13 Tablet by Colle ge 100 MG 00:00: mouth of tablet 00 nightly. Medicin e LamoTRIgine 2-0 Yes [id number] 1{tbl} Take 1 [facility] 300 MG TB24 9-13 Tablet by Col lege 00:00: mouth of 00 daily. Medicin e hydrOXYzine 2-0 Yes [id number] 25mg Take 1 [facility] (ATARAX) 25 9-13 Tablet by Col lege MG tablet 00:00: mouth 3 of 00 times Medicin daily as e needed for Itching. trazodone 2-0 Yes [id number] 100mg Take 1 [facility] (DESYREL) 9-13 Tablet by Colle ge 100 MG 00:00: mouth of tablet 00 nightly. Medicin e LamoTRIgine 2022-0 Yes [id number] 1{tbl} Take 1 [facility] 300 MG TB24 9-13 Tablet by Col [facility]ge 00:00: mouth of 00 daily. Medicin e hydrocodone 2021- No [id number] 1{tbl} Take 1 [facility] -acetaminop 9-13 10-13 Tablet by Co sally hen ([employer]) 00:00: 00:00 mouth of 5-325 mg 00 :00 every 4 Medicin tablet hours as e needed for Pain. amphetamine 2021- No [id number] 1{tbl} Take 1 [facility] -dextroamph 9-13 10-13 Tablet by [facility]lege etamine 00:00: 00:00 mouth of (ADDERALL, 00 :00 daily. In Medi mari 15MG,) 15 the e MG tablet morning amphetamine 2021- No [id number] 1{tbl} Take 1 [facility] -dextroamph 9-13 10-13 Tablet by Co llege etamine 00:00: 00:00 mouth of (ADDERALL, 00 :00 daily. Medicin 5MG,) 5 MG Take in e tablet afternoon HYDROcodone 2021- No 1{tbl} Take [address] -acetaminop 9-13 09-24 tablet by Ilene aguilar ([employer] 00:00: 00:00 mouth Medic al 5-325) 00 :00 every 4 Center 5-325 mg (four) per tablet hours as needed. HYDROcodone 2021- No 1{tbl} Take [address] -acetaminop 9-13 09-24 tablet by Ilene aguilar ([employer] 00:00: 00:00 mouth Medic al 5-325) 00 :00 every 4 Center 5-325 mg (four) per tablet hours as needed. HYDROcodone 2021- No 1{tbl} Take [address] -acetaminop 9-13 09-24 tablet by Ilene aguilar ([employer] 00:00: 00:00 mouth Medic al 5-325) 00 :00 every 4 Center 5-325 mg (four) per tablet hours as needed. HYDROcodone 2021- No 1{tbl} Take [address] -acetaminop 9-13 09-24 tablet by Ilene MckeonNORCO 00:00: 00:00 mouth Medic al 5-325) 00 :00 every 4 Center 5-325 mg (four) per tablet hours as needed. folic acid Yes 1000ug QD Take 1,[address] [facility] (FOLVITE) 1 9-11 mcg by [facility] tablet 00:00: mouth Medical 00 daily. [place] folic acid Yes 1000ug QD Take 1,[address] [facility] (FOLVITE) 1 9-11 mcg by [facility] tablet 00:00: mouth Medical 00 daily. [place] folic acid Yes 1000ug QD Take 1,[address] [facility] (FOLVITE) 1 9-11 mcg by [facility] tablet 00:00: mouth Medical 00 daily. [place] folic acid Yes 1000ug QD Take 1,[address] [facility] (FOLVITE) 1 9-11 mcg by [facility] tablet 00:00: mouth Medical 00 daily. [place] baclofen 2021- No 10mg Q.[id number] Take [address] [facility] (LIORESAL) 03-04 [id number] by mouth 3 [facility] 10 MG 00:00: 00:00 3D (three) Medical tablet 00 :00 times Center daily. baclofen 2021- No 10mg Q.[id number] Take [address] [facility] (LIORESAL) 03-04 [id number] by mouth 3 [facility] 10 MG 00:00: 00:00 3D (three) Medical tablet 00 :00 times Center daily. baclofen 2021- No 10mg Q.[id number] Take [address] [facility] (LIORESAL) 03-04 [id number] by mouth 3 [facility] 10 MG 00:00: 00:00 3D (three) Medical tablet 00 :00 times Center daily. baclofen 2021-2021- No 10mg Q.[id number] Take [address] [facility] (LIORESAL) 03-04 [id number] by mouth 3 [facility] 10 MG 00:00: 00:00 3D (three) Medical tablet 00 :00 times Center daily. predniSONE 2021-2021- No Take 2 [facility] (DELTASONE) 03-01 Tablets by C [facility]lege 10 MG 00:00: 04:59 mouth of tablet 00 :00 daily for Medicin 5 days, e THEN 1 Tablet daily for 5 days. predniSONE 2021-2021- No Take 2 [facility] (DELTASONE) 03-01 Tablets by C [facility]lege 10 MG 00:00: 04:59 mouth of tablet 00 :00 daily for Medicin 5 days, e THEN 1 Tablet daily for 5 days. predniSONE 2021-2021- No Take by [facility] (DELTASONE) 03-01 mouth as [facility] 10 MG 00:00: 23:59 directed Medical tablet 00 :00 Take 20 mg Center by mouth for 5 days and then take 10mg by mouth for 5 days. Medication , dose, and frequency confirmed and verified with the patient.. predniSONE 2021-2021- No Take by [facility] St (DELTASONE) 03-01 mouth as [facility] 10 MG 00:00: :59 directed Medical tablet 00 :00 Take 20 mg Center by mouth for 5 days and then take 10mg by mouth for 5 days. Medication , dose, and frequency confirmed and verified with the patient.. predniSONE 2021-2021- No Take by [facility] St (DELTASONE) 03-01 mouth as [facility] 10 MG 00:00: :59 directed Medical tablet 00 :00 Take 20 mg Center by mouth for 5 days and then take 10mg by mouth for 5 days. Medication , dose, and frequency confirmed and verified with the patient.. predniSONE 2021-2021- No Take by [facility] St (DELTASONE) 03-01 mouth as [facility] 10 MG 00:00: 23:59 directed Medical tablet 00 :00 Take 20 mg Center by mouth for 5 days and then take 10mg by mouth for 5 days. Medication , dose, and frequency confirmed and verified with the patient.. methylPREDN 2021-0 Yes Take as [place] [facility] ISolone 4 02-27 prescribed De[facility]o ege MG TBPK 00:00: of 00 Medicin e methylPREDN 2021-0 Yes Take as [place] [facility] ISolone 4 02-27 prescribed [facility] e[facility] MG TBPK 00:00: Medicin e methylPREDN 2021-0 Yes Take as [place] [facility] ISolone 4 02-27 prescribed De[facility]o ege MG TBPK 00:00: Medicin e methylPREDN 2-0 Yes Take as [place] [facility] ISolone 4 9-06 prescribed De[facility] ege MG TBPK 00:00: Medicin e methylPREDN 2-0 Yes Take as [place] [facility] ISolone 4 9-06 prescribed [facility] e[facility] MG TBPK 00:00: Medicin e methylPREDN 2-0 Yes Take as [place] [facility] ISolone 4 9-06 prescribed [facility]o ege MG TBPK 00:00: Medicin e methylPREDN 2-0 Yes Take as [place] [facility] ISolone 4 9-06 prescribed [facility] e[facility] MG TBPK 00:00: Medicin e methylPREDN 2-0 Yes Take as [place] [facility] ISolone 4 9-06 prescribed De[facility]o ege MG TBPK 00:00: Medicin e fluticasone 2021-0 Yes 1{puff} Inhale 1 [facility] -salmeterol 8-31 Puff by Oralia sy (ADVAIR) 11:54: mouth of 500-50 34 every 12 Medicin MCG/DOSE hours. e inhaler cyclobenzap 2021-0 Yes [facility] 5 mg 8-27 ity of tablet 00:00: [place] [address] [facility] cyclobenzap 2-0 Yes [facility] rine 5 mg 8-27 ity of tablet 00:00: [place] [address] [facility] cyclobenzap 2021-0 Yes [facility] 5 mg 8-27 ity of tablet 00:00: [place] [address] [facility] cyclobenzap 2022-0 Yes [facility] 5 mg 8-27 ity of tablet 00:00: [place] [address] [facility] cyclobenzap 2-0 Yes [facility] 5 mg 8-27 ity of tablet 00:00: [place] [address] [facility] cyclobenzap 2-0 Yes [facility] 5 mg 8-27 ity of tablet 00:00: [place] [address] [facility] cyclobenzap 2021-0 Yes [facility] 5 mg 8-27 ity of tablet 00:00: [place] [address] [facility] cyclobenzap 202-0 Yes [facility] 5 mg 8-27 ity of tablet 00:00: [place] [address] [facility] cyclobenzap 2-0 Yes [facility] 5 mg 8-27 ity of tablet 00:00: [place] 00 [facility] cyclobenzap 2021-0 Yes Un[facility] rine 5 mg 8-27 ity of tablet 00:00: [place] [facility] cyclobenzap 2021-0 Yes Un[facility] rine 5 mg 8-27 ity of tablet 00:00: [place] [facility] cyclobenzap 2021-0 Yes [facility] 5 mg 8-27 ity of tablet 00:00: [place] [address] [facility] cyclobenzap 2021-0 Yes [facility] 5 mg 8-27 ity of tablet 00:00: [place] [address] [facility] cyclobenzap 2021-0 Yes [facility] 5 mg 8-27 ity of tablet 00:00: [place] [address] [facility] cyclobenzap 2021-0 Yes [facility] 5 mg 8-27 ity of tablet 00:00: [place] [address] [facility] cyclobenzap 2021-0 Yes [facility] 5 mg 8-27 ity of tablet 00:00: [place] [address] [facility] cyclobenzap 2021-0 Yes [facility] 5 mg 8-27 ity of tablet 00:00: [place] [address] [facility] cyclobenzap 2021-0 Yes [facility] 5 mg 8-27 ity of tablet 00:00: [place] [address] [facility] cyclobenzap 2021-0 Yes [facility] 5 mg 8-27 ity of tablet 00:00: [place] [address] [facility] cyclobenzap 2021-0 Yes [facility] 5 mg 8-27 ity of tablet 00:00: [place] [address] [facility] cyclobenzap 2021-0 Yes [facility] 5 mg 8-27 ity of tablet 00:00: [place] [address] [facility] cyclobenzap 2021-0 Yes [facility] 5 mg 8-27 ity of tablet 00:00: [place] [address] [facility] cyclobenzap 2021-0 Yes [facility] 5 mg 8-27 ity of tablet 00:00: [place] [address] [facility] cyclobenzap 2021-0 Yes [facility] 5 mg 8-27 ity of tablet 00:00: [place] [address] [facility] cyclobenzap 2021-0 Yes [facility] 5 mg 8-27 ity of tablet 00:00: [place] [address] [facility] cyclobenzap 2021-0 Yes [facility] 5 mg 8-27 ity of tablet 00:00: [place] [facility] cyclobenzap 2021-0 Yes Univer s rine 5 mg 8-27 ity of tablet 00:00: [place] [facility] cyclobenzap 2021-0 Yes Univer [facility] rine 5 mg 8-27 ity of tablet 00:00: [address] Branch cyclobenzap 2021-0 Yes [facility] 8-27 [facility]) 00:00: of 5 MG tablet 00 Medicin e cyclobenzap 2021-0 Yes [facility] 8-27 [facility]) 00:00: of 5 MG tablet 00 Medicin e cyclobenzap 2021-0 Yes [facility] 8-27 [facility]) 00:00: of 5 MG tablet 00 Medicin e cyclobenzap 2021-0 Yes [facility] 827 [facility]) 00:00: of 5 MG tablet 00 Medicin e cyclobenzap 2021-0 Yes [facility] 8-27 [facility]) 00:00: of 5 MG tablet 00 Medicin e cyclobenzap 2021-0 Yes [facility] 8-27 [facility]) 00:00: of 5 MG tablet 00 Medicin e cyclobenzap 2021-0 Yes [facility] 827 [facility]) 00:00: of 5 MG tablet 00 Medicin e cyclobenzap 2021-0 Yes [facility] 827 [facility]) 00:00: of 5 MG tablet 00 Medicin e methylPREDN 2021-0 2021- No Take as [facility] ISolone 4 02-16 prescribed [facility]ge MG TBPK 00:00: 00:00 of 00 :00 Medicin e midodrine 2021-0 Yes 2.5 mg po [facility] [facility] (PROAMATINE 02-12 qam and at [facility] ) 2.5 MG 00:00: noon x 1 of tablet 00 week Medicin followed e by 5 mg po qam and q noon from then on. Patient clarified that she had an adverse reaction to Aprodine and not an allergic reaction. fluconazole 2021-0 Yes 100mg Take 1 [facility] [facility] (DIFLUCAN) 02-12 Tablet by [facility] 100 MG 00:00: mouth of tablet 00 daily. Medicin e nystatin 2022-0 Yes [id number] Take 1 mL [facility] (MYCOSTATIN 8-22 by mouth De[facility]o ege ) [id number] 00:00: four times of UNIT/ML 00 daily. Medicin suspension e midodrine 2022-0 Yes 2.5 mg po [place] [facility] (PROAMATINE 8-22 qam and at [facility] ) 2.5 MG 00:00: noon x 1 of tablet 00 week Medicin followed e by 5 mg po qam and q noon from then on. Patient clarified that she had an adverse reaction to Aprodine and not an allergic reaction. fluconazole 2022-0 Yes 100mg Take 1 [facility] [facility] (DIFLUCAN) 8-22 Tablet by Deangelo ege 100 MG 00:00: mouth of tablet 00 daily. Medicin e nystatin 2022-0 Yes [id number] Take 1 mL [facility] (MYCOSTATIN 8-22 by mouth De[facility] ege ) [id number] 00:00: four times of UNIT/ML 00 daily. Medicin suspension e midodrine 2022-0 Yes 2.5 mg po [place] [facility] (PROAMATINE 8-22 qam and at Co [facility]lege ) 2.5 MG 00:00: noon x 1 of tablet 00 week Medicin followed e by 5 mg po qam and q noon from then on. Patient clarified that she had an adverse reaction to Aprodine and not an allergic reaction. fluconazole 2022-0 Yes 100mg Take 1 [place] [facility] (DIFLUCAN) 8-22 Tablet by De[facility]o ege 100 MG 00:00: mouth of tablet 00 daily. Medicin e nystatin 2022-0 Yes [id number] Take 1 mL [facility] (MYCOSTATIN 8-22 by mouth De[facility]o ege ) [id number] 00:00: four times of UNIT/ML 00 daily. Medicin suspension e midodrine 2022-0 Yes 2.5 mg po [place] [facility] (PROAMATINE 8-22 qam and at Co [facility]lege ) 2.5 MG 00:00: noon x 1 of tablet 00 week Medicin followed e by 5 mg po qam and q noon from then on. Patient clarified that she had an adverse reaction to Aprodine and not an allergic reaction. fluconazole 2022-0 Yes 100mg Take 1 [facility] [facility] (DIFLUCAN) 8-22 Tablet by Deangelo ege 100 MG 00:00: mouth of tablet 00 daily. Medicin e nystatin 2-0 Yes [id number] Take 1 mL [facility] (MYCOSTATIN 8-22 by mouth Deangelo ege ) [id number] 00:00: four times of UNIT/ML 00 daily. Medicin suspension e midodrine 2-0 Yes 2.5 mg po [place] [facility] (PROAMATINE 8-22 qam and at Co [facility]lege ) 2.5 MG 00:00: noon x 1 of tablet 00 week Medicin followed e by 5 mg po qam and q noon from then on. Patient clarified that she had an adverse reaction to Aprodine and not an allergic reaction. fluconazole 2021-0 Yes 100mg Take 1 [facility] [facility] (DIFLUCAN) 8-22 Tablet by Deangelo ege 100 MG 00:00: mouth of tablet 00 daily. Medicin e nystatin 2-0 Yes [id number] Take 1 mL [facility] (MYCOSTATIN 8-22 by mouth Deangelo ege ) [id number] 00:00: four times of UNIT/ML 00 daily. Medicin suspension e midodrine 2021-0 Yes 2.5 mg po [place] [facility] (PROAMATINE 8-22 qam and at Co [facility]lege ) 2.5 MG 00:00: noon x 1 of tablet 00 week Medicin followed e by 5 mg po qam and q noon from then on. Patient clarified that she had an adverse reaction to Aprodine and not an allergic reaction. nystatin 2-0 Yes [id number] Take 1 mL [facility] (MYCOSTATIN 8-22 by mouth Deangelo ege ) [id number] 00:00: four times of UNIT/ML 00 daily. Medicin suspension e midodrine 2-0 Yes 2.5 mg po [place] [facility] (PROAMATINE 8-22 qam and at Co [facility]lege ) 2.5 MG 00:00: noon x 1 of tablet 00 week Medicin followed e by 5 mg po qam and q noon from then on. Patient clarified that she had an adverse reaction to Aprodine and not an allergic reaction. nystatin 2022-0 Yes [id number] Take 1 mL [facility] (MYCOSTATIN 8-22 by mouth Deangelo ege ) [id number] 00:00: four times of UNIT/ML 00 daily. Medicin suspension e midodrine 2-0 Yes 2.5 mg po [place] [facility] (PROAMATINE 8-22 qam and at [facility] ) 2.5 MG 00:00: noon x 1 of tablet 00 week Medicin followed e by 5 mg po qam and q noon from then on. Patient clarified that she had an adverse reaction to Aprodine and not an allergic reaction. nystatin 2-0 Yes [id number] Take 1 mL [facility] (MYCOSTATIN 8-22 by mouth Deangelo ege ) [id number] 00:00: four times of UNIT/ML 00 daily. Medicin suspension e midodrine 2021-0 Yes 2.5 mg po [place] [facility] (PROAMATINE 8-22 qam and at [facility] ) 2.5 MG 00:00: noon x 1 of tablet 00 week Medicin followed e by 5 mg po qam and q noon from then on. Patient clarified that she had an adverse reaction to Aprodine and not an allergic reaction. nystatin 2021-0 Yes [id number] Take 1 mL [facility] (MYCOSTATIN 8-22 by mouth Deangelo ege ) [id number] 00:00: four times of UNIT/ML 00 daily. [...] am and at noon everyday." . fluconazole 2-0 2022- No 100mg Take 1 [facility] (DIFLUCAN) 8-22 10-13 Tablet by Col [facility] 100 MG 00:00: 00:00 mouth of tablet 00 :00 daily. Medicin e metoprolol 2-0 Yes 25mg Q.5D Take [address] tartrate 8-21 by mouth 2 [facility] (LOPRESSOR) 00:00: (two) Medic al 25 MG 00 times Center tablet daily. leflunomide 2-0 Yes 10mg QD Take [address] [facility] (ARAVA) 10 8-21 by mouth [facility] tablet 00:00: daily. Medica l 00 [place] metoprolol 2022-0 Yes 25mg Q.5D Take [address] tartrate 8-21 by mouth 2 [facility] (LOPRESSOR) 00:00: (two) Medic al 25 MG 00 times Center tablet daily. leflunomide 2-0 Yes 10mg QD Take [address] [facility] (ARAVA) 10 8-21 by mouth [facility] tablet 00:00: daily. Medica l 00 Center metoprolol 2-0 Yes 25mg Q.5D Take [address] tartrate 8-21 by mouth 2 [facility] (LOPRESSOR) 00:00: (two) Medic al 25 MG 00 times Center tablet daily. leflunomide 2022-0 Yes 10mg QD Take [address] [facility] (ARAVA) 10 8-21 by mouth [facility] tablet 00:00: daily. Medica l 00 Center metoprolol 2022-0 Yes 25mg Q.5D Take [address] tartrate 8-21 by mouth 2 [facility] (LOPRESSOR) 00:00: (two) Medic al 25 MG 00 times Center tablet daily. leflunomide 2022-0 Yes 10mg QD Take [address] [facility] (ARAVA) 10 8-21 by mouth [facility] tablet 00:00: daily. Medica l 00 Center baclofen 10 2-0 Yes 10mg Take 10 mg [facility] mg tablet 8-18 by mouth. ity o f 00:00: [facility] baclofen 10 2021-0 Yes 10mg Take 10 mg [facility] mg tablet 8-18 by mouth. ity o f 00:00: [facility] baclofen 10 2021-0 Yes 10mg Take 10 mg [facility] mg tablet 8-18 by mouth. ity o f 00:00: [facility] baclofen 10 2021-0 Yes 10mg Take 10 mg [facility] mg tablet 8-18 by mouth. ity o f 00:00: [facility] baclofen 10 2021-0 Yes 10mg Take 10 mg [facility] mg tablet 8-18 by mouth. ity o f 00:00: [facility] baclofen 10 2021-0 Yes 10mg Take 10 mg [facility] mg tablet 8-18 by mouth. ity o f 00:00: [facility] baclofen 10 2021-0 Yes 10mg Take 10 mg [facility] mg tablet 8-18 by mouth. ity o f 00:00: [facility] baclofen 10 2021-0 Yes 10mg Take 10 mg [facility] mg tablet 8-18 by mouth. ity o f 00:00: [facility] baclofen 10 2021-0 Yes 10mg Take 10 mg [facility] mg tablet 8-18 by mouth. ity o f 00:00: [facility] baclofen 10 2021-0 Yes 10mg Take 10 mg [facility] mg tablet 8-18 by mouth. ity o f 00:00: [facility] baclofen 10 2021-0 Yes 10mg Take 10 mg [facility] mg tablet 8-18 by mouth. ity o f 00:00: [facility] baclofen 10 2021-0 Yes 10mg Take 10 mg [facility] mg tablet 8-18 by mouth. ity o f 00:00: [facility] baclofen 10 2021-0 Yes 10mg Take 10 mg [facility] mg tablet 8-18 by mouth. ity o f 00:00: [facility] baclofen 10 2021-0 Yes 10mg Take 10 mg [facility] mg tablet 8-18 by mouth. ity o f 00:00: [facility] baclofen 10 2021-0 Yes 10mg Take 10 mg [facility] mg tablet 8-18 by mouth. ity o f 00:00: Medical Branch baclofen 10 2021-0 Yes 10mg Take 10 mg [facility] mg tablet 8-18 by mouth. ity o f 00:00: [facility] baclofen 10 2021-0 Yes 10mg Take 10 mg [facility] mg tablet 8-18 by mouth. ity o f 00:00: [facility] baclofen 10 2021-0 Yes 10mg Take 10 mg [facility] mg tablet 8-18 by mouth. ity o f 00:00: [facility] baclofen 10 2021-0 Yes 10mg Take 10 mg [facility] mg tablet 8-18 by mouth. ity o f 00:00: [facility] baclofen 10 2021-0 Yes 10mg Take 10 mg [facility] mg tablet 8-18 by mouth. ity o f 00:00: [facility] baclofen 10 2021-0 Yes 10mg Take 10 mg [facility] mg tablet 8-18 by mouth. ity o f 00:00: [facility] baclofen 10 2021-0 Yes 10mg Take 10 mg [facility] mg tablet 8-18 by mouth. ity o f 00:00: [facility] baclofen 10 2021-0 Yes 10mg Take 10 mg [facility] mg tablet 8-18 by mouth. ity o f 00:00: [facility] baclofen 10 2021-0 Yes 10mg Take 10 mg [facility] mg tablet 8-18 by mouth. ity o f 00:00: [facility] baclofen 10 2021-0 Yes 10mg Take 10 mg [facility] mg tablet 8-18 by mouth. ity o f 00:00: [facility] baclofen 10 2021-0 Yes 10mg Take 10 mg [facility] mg tablet 8-18 by mouth. ity o f 00:00: [facility] baclofen 10 2021-0 Yes 10mg Take 10 mg [facility] mg tablet 8-18 by mouth. ity o f 00:00: [facility] baclofen 10 2021-0 Yes 10mg Take 10 mg [facility] mg tablet 8-18 by mouth. ity o f 00:00: [facility] baclofen 2021-0 Yes [id number] 10mg Take 1 [facility] [facility] (LIORESAL) 8-18 Tablet by Deangelo ege 10 MG 00:00: mouth 3 of tablet 00 times Medicin daily as e needed for Pain. baclofen 2021-0 Yes [id number] 10mg Take 1 [place] [facility] (LIORESAL) 8-18 Tablet by De[facility] ege 10 MG 00:00: mouth 3 of tablet 00 times Medicin daily as e needed for Pain. Fosfomycin 2021-0 Yes [facility] Tromethamin 8-18 College e 3 g PACK 00:00: of 00 Medicin e baclofen 2021-0 Yes [id number] 10mg Take 1 [place] [facility] (LIORESAL) 8-18 Tablet by Deangelo ege 10 MG 00:00: mouth 3 of tablet 00 times Medicin daily as e needed for Pain. Fosfomycin 2021-0 Yes [facility] Tromethamin 8-18 College e 3 g PACK 00:00: of 00 Medicin e baclofen 2021-0 Yes [id number] 10mg Take 1 [place] [facility] (LIORESAL) 8-18 Tablet by De[facility]o ege 10 MG 00:00: mouth 3 of tablet 00 times Medicin daily as e needed for Pain. Fosfomycin 2021-0 Yes [facility] Tromethamin 8-18 College e 3 g PACK 00:00: of 00 Medicin e baclofen 2021-0 Yes [id number] 10mg Take 1 [place] [facility] (LIORESAL) 8-18 Tablet by Deangelo ege 10 MG 00:00: mouth 3 of tablet 00 times Medicin daily as e needed for Pain. Fosfomycin 2021-0 Yes [facility] Tromethamin 8-18 College e 3 g PACK 00:00: of 00 Medicin e baclofen 2021-0 2022- No [id number] 10mg Take 1 [facility] (LIORESAL) 8-18 10-14 Tablet by [facility] 10 MG 00:00: 00:00 mouth 3 of tablet 00 :00 times Medicin daily as e needed for Pain. Fosfomycin 2021-0 2022- No [facility] Tromethamin 8-18 10-13 College e 3 g PACK 00:00: 00:00 of 00 :00 Medicin e amphetamine 2021-0 Yes [id number] 1{tbl} Take 1 [facility] -dextroamph 8-16 Tablet by Col lege etamine 00:00: mouth of (ADDERALL, 00 daily. In Medi mari 15MG,) 15 the e MG tablet morning amphetamine 2021-0 Yes [id number] 1{tbl} Take 1 [facility] -dextroamph 8-16 Tablet by Col lege etamine 00:00: mouth of (ADDERALL, 00 daily. Medicin 5MG,) 5 MG Take in e tablet afternoon amphetamine 0 2021- No [id number] 1{tbl} Take 1 [facility] -dextroamph 02-06 Tablet by Co llege etamine 00:00: 00:00 mouth of (ADDERALL, 00 :00 daily. In Medi mari 15MG,) 15 the e MG tablet morning amphetamine 2021- No [id number] 1{tbl} Take 1 [facility] -dextroamph 02-06 Tablet by Co llege etamine 00:00: 00:00 mouth of (ADDERALL, 00 :00 daily. Medicin 5MG,) 5 MG Take in e tablet afternoon penicillin Yes [facility] v potassium 8-15 [facility] ([facility]) 00:00: of 500 MG 00 Medicin tablet e penicillin Yes [facility] v potassium 8-15 [facility] ([facility]) 00:00: of 500 MG 00 Medicin tablet e penicillin Yes [facility] v potassium 8-15 [place] ([facility]) 00:00: of 500 MG 00 Medicin tablet e penicillin 0 Yes [facility] v potassium 8-15 [facility] ([facility]) 00:00: of 500 MG 00 Medicin tablet e penicillin 0 2021- No [facility] v potassium 8-15 10-13 [place] ([facility]) 00:00: 00:00 of 500 MG 00 :00 Medicin tablet e fluticasone Yes 1{puff} Inhale 1 [facility] -salmeterol 8-03 Puff by [employer] (ADVAIR) 11:13: mouth of 500-50 01 every 12 Medicin MCG/DOSE hours. e inhaler fluticasone 0 Yes 1{puff} Inhale 1 [facility] -salmeterol 8-03 Puff by [employer] (ADVAIR) 11:13: mouth of 500-50 01 every 12 Medicin MCG/DOSE hours. e inhaler pyridostigm 0 Yes 1/2 tablet [facility]al ine 8- pot tid x [place] (MESTINON) 00:00: 1 week of 60 MG 00 then 60 mg Medicin tablet po bid for e 1 week then 60 mg tid metronidazo 2022-0 Yes [facility] le (FLAGYL) 01-22 [place] 500 MG 00:00: of tablet 00 Medicin e metronidazo 2022-0 Yes [facility] le (FLAGYL) 01-22 [place] 500 MG 00:00: of tablet 00 Medicin e metronidazo 2022-0 Yes [facility] le (FLAGYL) 01-22 [place] 500 MG 00:00: of tablet 00 Medicin e metronidazo 2022-0 Yes [facility] le (FLAGYL) 01-22 [place] 500 MG 00:00: of tablet 00 Medicin e metronidazo 2-0 Yes [facility] le (FLAGYL) 01-22 [place] 500 MG 00:00: of tablet 00 Medicin e pyridostigm 2-0 Yes 1/2 tablet [facility] ine 01-22 pot tid x [place] (MESTINON) 00:00: 1 week of 60 MG 00 then 60 mg Medicin tablet po bid for e 1 week then 60 mg tid pyridostigm 2022-0 Yes 1/2 tablet [facility] ine 01-22 pot tid x [place] (MESTINON) 00:00: 1 week of 60 MG 00 then 60 mg Medicin tablet po bid for e 1 week then 60 mg tid metronidazo 2022-0 Yes [facility] le (FLAGYL) 01-22 [place] 500 MG 00:00: of tablet 00 Medicin e pyridostigm 2022-0 Yes 1/2 tablet [facility] ine 01-22 pot tid x [place] (MESTINON) 00:00: 1 week of 60 MG 00 then 60 mg Medicin tablet po bid for e 1 week then 60 mg tid metronidazo 2022-0 2022- No Melissa [facility] le (FLAGYL) 01-22 [facility] 500 MG 00:00: 00:00 of tablet 00 :00 Medicin e pyridostigm 2022-0 2022- No 1/2 tablet [facility] ine 01-22 pot tid x [place] (MESTINON) 00:00: 00:00 1 week of 60 MG 00 :00 then 60 mg Medicin tablet po bid for e 1 week then 60 mg tid metronidazo 2022-0 2021- No 500mg Take 500 [facility] (FLAGYL) 8-01 08-09 mg by Colleg e 500 MG 00:00: 04:59 mouth. of tablet 00 :00 Medicin e LIALDA 1.2 2021-0 Yes [facility] 730 [place] 00:00: of 00 Medicin e LIALDA 1.2 2021-0 Yes [facility] 730 [place] 00:00: of 00 Medicin e LIALDA 1.2 2021-0 Yes [facility] 730 [place] 00:00: of 00 Medicin e LIALDA 1.2 2021-0 Yes [facility] 30 [place] 00:00: of 00 Medicin e LIALDA 1.2 2021-0 Yes [facility] 01-20 [place] 00:00: of 00 Medicin e LIALDA 1.2 2021-0 Yes [facility] 01-20 [place] 00:00: of 00 Medicin e LIALDA 1.2 2021-0 Yes [facility] 01-20 [place] 00:00: of 00 Medicin e LIALDA 1.2 2021-0 Yes [facility] 01-20 [place] 00:00: of 00 Medicin e LIALDA 1.2 2021-0 Yes [facility] 01-20 [place] 00:00: of 00 Medicin e LIALDA 1.2 2021-0 Yes [facility] 01-20 [place] 00:00: of 00 Medicin e metoprolol 2021-0 Yes [id number] 25mg Take 1 [facility] (LOPRESSOR) 7-27 Tablet by Col [facility] 25 MG 00:00: mouth two of tablet 00 times Medicin daily. e metoprolol 2021-0 Yes [id number] 25mg Take 1 [facility] (LOPRESSOR) 7-27 Tablet by [facility] 25 MG 00:00: mouth two of tablet 00 times Medicin daily. e metoprolol 0 Yes [id number] 25mg Take 1 [facility] (LOPRESSOR) 7-27 Tablet by [facility] 25 MG 00:00: mouth two of tablet 00 times Medicin daily. e metoprolol Yes [id number] 25mg Take 1 [facility] (LOPRESSOR) 7-27 Tablet by [facility] 25 MG 00:00: mouth two of tablet 00 times Medicin daily. e metoprolol 2021-0 Yes [id number] 25mg Take 1 [facility] (LOPRESSOR) 7-27 Tablet by [facility] 25 MG 00:00: mouth two of tablet 00 times Medicin daily. e metoprolol 2-0 Yes [id number] 25mg Take 1 [facility] (LOPRESSOR) 7-27 Tablet by [facility] 25 MG 00:00: mouth two of tablet 00 times Medicin daily. e metoprolol 2021-0 Yes [id number] 25mg Take 1 [facility] (LOPRESSOR) 7-27 Tablet by [facility] 25 MG 00:00: mouth two of tablet 00 times Medicin daily. e metoprolol 2021-0 Yes [id number] 25mg Take 1 [facility] (LOPRESSOR) 7-27 Tablet by [facility] 25 MG 00:00: mouth two of tablet 00 times Medicin daily. e metoprolol 2021-0 Yes [id number] 25mg Take 1 [facility] (LOPRESSOR) 7-27 Tablet by [facility] 25 MG 00:00: mouth two of tablet 00 times Medicin daily. e metoprolol 2021-0 Yes [id number] 25mg Take 1 [facility] (LOPRESSOR) 7-27 Tablet by [facility] 25 MG 00:00: mouth two of tablet 00 times Medicin daily. e metoprolol 2021-0 Yes [id number] 25mg Take 1 [facility] (LOPRESSOR) 7-27 Tablet by [facility] 25 MG 00:00: mouth two of tablet 00 times Medicin daily. e metoprolol 2021-0 Yes [id number] 25mg Take 1 [facility] (LOPRESSOR) 7-27 Tablet by [facility] 25 MG 00:00: mouth two of tablet 00 times Medicin daily. e triamcinolo 2021-0 Yes [facility] topically. [place] (ARISTOCORT 00:00: of ) 0.5 % 00 Medicin cream e triamcinolo 2021-0 Yes [facility] ne 7-26 [place] (ARISTOCORT 00:00: of ) 0.5 % 00 Medicin cream e triamcinolo 2021-0 Yes Apply [facility] topically. [place] (ARISTOCORT 00:00: of ) 0.5 % 00 Medicin cream e triamcinolo 2021-[address] [facility] 7-26 [place] (ARISTOCORT 00:00: of ) 0.5 % 00 Medicin cream e triamcinolo 2-0 Yes Apply [facility] topically. [place] (ARISTOCORT 00:00: of ) 0.5 % 00 Medicin cream e triamcinolo 2022-[address] [facility] 7-26 [place] (ARISTOCORT 00:00: of ) 0.5 % 00 Medicin cream e triamcinolo 2-0 Yes Apply [facility] topically. [place] (ARISTOCORT 00:00: of ) 0.5 % 00 Medicin cream e triamcinolo 2022-[address] [facility] 7-26 [place] (ARISTOCORT 00:00: of ) 0.5 % 00 Medicin cream e triamcinolo 2-0 Yes Apply [facility] topically. [place] (ARISTOCORT 00:00: of ) 0.5 % 00 Medicin cream e triamcinolo 2022-[address] [facility] 7-26 [place] (ARISTOCORT 00:00: of ) 0.5 % 00 Medicin cream e triamcinolo 2-0 Yes Apply [facility] topically. [place] (ARISTOCORT 00:00: of ) 0.5 % 00 Medicin cream e triamcinolo 2022-[address] [facility] [address] [place] [address] (ARISTOCORT 00:00: of ) 0.5 % 00 Medicin cream e triamcinolo 2-0 Yes Apply [facility] topically. [place] (ARISTOCORT 00:00: of ) 0.5 % 00 Medicin cream e triamcinolo 2022-[address] [facility] 7-26 [place] (ARISTOCORT 00:00: of ) 0.5 % 00 Medicin cream e triamcinolo 2-0 Yes Apply [facility] topically. [place] (ARISTOCORT 00:00: of ) 0.5 % 00 Medicin cream e triamcinolo 2022-[address] [facility] 7-26 [place] (ARISTOCORT 00:00: of ) 0.5 % 00 Medicin cream e triamcinolo 2022-0 Yes Apply [facility] topically. [place] (ARISTOCORT 00:00: of ) 0.5 % 00 Medicin cream e triamcinolo 2-[address] [facility] 01-16 [place] (ARISTOCORT 00:00: of ) 0.5 % 00 Medicin cream e Baclofen 2022-[id number] 10 [facility] 7-26 mg [place] 00:00: vaginally of 00 2 times Medicin daily as e needed. Please compound as vaginal suppositor y Baclofen 2022-[id number] 10 [facility] 7-26 mg [place] 00:00: vaginally of 00 2 times Medicin daily as e needed. Please compound as vaginal suppositor y triamcinolo 2-0 Yes Apply [facility] topically. [place] (ARISTOCORT 00:00: of ) 0.5 % 00 Medicin cream e triamcinolo 2-[address] [facility] 01-16 [place] (ARISTOCORT 00:00: of ) 0.5 % 00 Medicin cream e Baclofen 2-[id number] 10 [facility] 7-26 mg [place] 00:00: vaginally of 00 2 times Medicin daily as e needed. Please compound as vaginal suppositor y mupirocin 2-0 Yes [id number] Apply to [facility] (BACTROBAN) 01-13 affected De[facility]o ege 2 % 00:00: area 2 x a of ointment day Medicin e mupirocin 2-0 Yes [id number] Apply to [facility] (BACTROBAN) 01-13 affected [facility] ege 2 % 00:00: area 2 x a of ointment day Medicin e mupirocin 2-0 Yes [id number] Apply to [facility] (BACTROBAN) 01-13 affected [facility] ege 2 % 00:00: area 2 x a of ointment day Medicin e mupirocin 2022-0 Yes [id number] Apply to [facility] (BACTROBAN) 01-13 affected [facility] ege 2 % 00:00: area 2 x a of ointment 00 day Medicin e mupirocin 2022-0 Yes [id number] Apply to [facility] (BACTROBAN) 01-13 affected De[facility]o ege 2 % 00:00: area 2 x a of ointment 00 day Medicin e mupirocin 2022-0 Yes [id number] Apply to [facility] (BACTROBAN) 01-13 affected [facility]o ege 2 % 00:00: area 2 x a of ointment 00 day Medicin e mupirocin 2022-0 Yes [id number] Apply to [facility] (BACTROBAN) 01-13 affected De[facility]o ege 2 % 00:00: area 2 x a of ointment 00 day Medicin e mupirocin 2022-0 Yes [id number] Apply to [facility] (BACTROBAN) 01-13 affected De[facility]o ege 2 % 00:00: area 2 x a of ointment 00 day Medicin e mupirocin 2022-0 Yes [id number] Apply to [facility] (BACTROBAN) 01-13 affected De[facility]o ege 2 % 00:00: area 2 x a of ointment day Medicin e mupirocin 2022-0 Yes [id number] Apply to [facility] (BACTROBAN) 01-13 affected De[facility]o ege 2 % 00:00: area 2 x a of ointment 00 day Medicin e mupirocin 2022-0 Yes [id number] Apply to [facility] (BACTROBAN) 01-13 affected De[facility]o ege 2 % 00:00: area 2 x a of ointment 00 day Medicin e mupirocin 2-0 Yes [id number] Apply to [facility] (BACTROBAN) 01-13 affected De[facility]o ege 2 % 00:00: area 2 x a of ointment 00 day Medicin e albuterol 0 Yes INHALE [...] 6 Branch HOURS NEEDED FOR WHEEZING albuterol 2022-0 Yes INHALE ONE [facility] 90 7-19 [...] CREA two times e daily. Albuterol Yes [id number] INHALE ONE [facility] Sulfate 01-09 6 TO TWO College (PROAIR 00:00: PUFFS BY of HFA) 108 00 MOUTH Medicin (90 Base) EVERY 6 e MCG/ACT HOURS AERS NEEDED FOR WHEEZING meclizine Yes [id number] 25mg Take 1 [facility] (ANTIVERT) 01-09 Tablet by Deangelo ege 25 MG 00:00: mouth 3 of tablet 00 times Medicin daily as e needed for Dizziness. LamoTRIgine Yes [id number] 1{tbl} Take 1 [facility] 300 MG TB24 7-19 Tablet by [facility] 00:00: mouth of 00 daily. Medicin e hydrocortis 2021-0 Yes [facility] one 2.5 % 7-19 College cream 00:00: of 00 Medicin e Hydrocortis 2021-0 Yes 1{appli Apply 1 [facility] one, 7-19 cation} applicatio Colleg [facility] Perianal, 00:00: n of (ANUSOL-HC) 00 topically Med icin 2.5 % CREA two times e daily. Albuterol 2021-0 Yes [id number] INHALE ONE [facility] Sulfate 7-19 6 TO TWO [employer] (PROAIR 00:00: PUFFS BY of HFA) 108 00 MOUTH Medicin (90 Base) EVERY 6 e MCG/ACT HOURS AERS NEEDED FOR WHEEZING meclizine 2021-0 Yes [id number] 25mg Take 1 [facility] (ANTIVERT) 7-19 [...] two times e daily. Albuterol 2021-0 Yes [id number] INHALE ONE [facility] Sulfate 7-19 6 TO TWO [employer] (PROAIR 00:00: PUFFS BY of HFA) 108 00 MOUTH Medicin (90 Base) EVERY 6 e MCG/ACT HOURS AERS NEEDED FOR WHEEZING meclizine 2021-0 Yes [id number] 25mg Take 1 [facility] (ANTIVERT) 7-19 Tablet by Deangelo ege 25 MG 00:00: mouth 3 of tablet 00 times Medicin daily as e needed for Dizziness. hydrocortis 2021-0 Yes [facility] one 2.5 % 7-19 College cream 00:00: of 00 Medicin e Hydrocortis 2021-0 Yes 1{appli Apply 1 [facility] one, 7-19 cation} applicatio [facility] Perian[facility], 00:00: n of (ANUSOL-HC) 00 topically Med icin 2.5 % CREA two times e daily. Albuterol 2021-0 Yes [id number] INHALE ONE [facility] Sulfate 7-19 6 TO TWO [employer] (PROAIR 00:00: PUFFS BY of HFA) 108 00 MOUTH Medicin (90 Base) EVERY 6 e MCG/ACT HOURS AERS NEEDED FOR WHEEZING meclizine 2021-0 Yes [id number] 25mg Take 1 [facility] (ANTIVERT) 7-19 [...] two times e daily. Albuterol 2021-0 Yes [id number] INHALE ONE [facility] Sulfate 7-19 6 TO TWO [employer] (PROAIR 00:00: PUFFS BY of HFA) 108 00 MOUTH Medicin (90 Base) EVERY 6 e MCG/ACT HOURS AERS NEEDED FOR WHEEZING meclizine 2021-0 Yes [id number] 25mg Take 1 [facility] (ANTIVERT) 7-19 [...] two times e daily. Albuterol 2021-0 Yes [id number] INHALE ONE [facility] Sulfate 7-19 6 TO TWO [employer] ([facility]IR 00:00: PUFFS BY of HFA) 108 00 MOUTH Medicin (90 Base) EVERY 6 e MCG/ACT HOURS AERS NEEDED FOR WHEEZING meclizine 2022-0 Yes [id number] 25mg Take 1 [facility] (ANTIVERT) 7-19 Tablet by Deangelo ege 25 MG 00:00: mouth 3 of tablet 00 times Medicin daily as e needed for Dizziness. hydrocortis 2021-0 Yes [facility] one 2.5 % 7-19 College cream 00:00: of 00 Medicin e Hydrocortis 2021-0 Yes 1{appli Apply 1 [facility] one, 7-19 cation} applicatio [facility], 00:00: n of (ANUSOL-HC) 00 topically Med icin 2.5 % CREA two times e daily. Albuterol 2021-0 Yes [id number] INHALE ONE [facility] Sulfate 7-19 6 TO TWO [employer] (PROAIR 00:00: PUFFS BY of HFA) 108 00 MOUTH Medicin (90 Base) EVERY 6 e MCG/ACT HOURS AERS NEEDED FOR WHEEZING meclizine 2021-0 Yes [id number] 25mg Take 1 [facility] (ANTIVERT) 7-19 Tablet by Deangelo ege 25 MG 00:00: mouth 3 of tablet 00 times Medicin daily as e needed for Dizziness. hydrocortis 2021-0 Yes [facility] one 2.5 % 7-19 College cream 00:00: of 00 Medicin e Hydrocortis 2021-0 Yes 1{appli Apply 1 [facility] one, 7-19 cation} applicatio [facility], 00:00: n of (ANUSOL-HC) 00 topically Med icin 2.5 % CREA two times e daily. Albuterol 2021-0 Yes [id number] INHALE ONE [facility] Sulfate 7-19 6 TO TWO [employer] (PROAIR 00:00: PUFFS BY of HFA) 108 00 MOUTH Medicin (90 Base) EVERY 6 e MCG/ACT HOURS AERS NEEDED FOR WHEEZING meclizine 2021-0 Yes [id number] 25mg Take 1 [facility] (ANTIVERT) 7-19 Tablet by Deangelo ege 25 MG 00:00: mouth 3 of tablet 00 times Medicin daily as e needed for Dizziness. hydrocortis 2021-0 Yes [facility] one 2.5 % 7-19 College cream 00:00: of 00 Medicin e Hydrocortis 2021-0 Yes 1{appli Apply 1 [facility] one, 7-19 cation} applicatio [facility], 00:00: n of (ANUSOL-HC) 00 topically Med icin 2.5 % CREA two times e daily. Albuterol 0 Yes [id number] INHALE ONE [facility] Sulfate 7-19 6 TO TWO [employer] (PROAIR 00:00: PUFFS BY of HFA) 108 00 MOUTH Medicin (90 Base) EVERY 6 e MCG/ACT HOURS AERS NEEDED FOR WHEEZING meclizine 0 Yes [id number] 25mg Take 1 [facility] (ANTIVERT) 7-19 Tablet by Deangelo ege 25 MG 00:00: mouth 3 of tablet 00 times Medicin daily as e needed for Dizziness. hydrocortis 0 Yes [facility] one 2.5 % -19 College cream 00:00: of 00 Medicin e Hydrocortis 2021-0 Yes 1{appli Apply 1 [facility] one, 7-19 cation} applicatio [facility], 00:00: n of (ANUSOL-HC) 00 topically Med icin 2.5 % CREA two times e daily. Albuterol Yes [id number] INHALE ONE [facility] Sulfate 7-19 6 TO TWO [employer] (PROAIR 00:00: PUFFS BY of HFA) 108 00 MOUTH Medicin (90 Base) EVERY 6 e MCG/ACT HOURS AERS NEEDED FOR WHEEZING meclizine 0 Yes [id number] 25mg Take 1 [facility] (ANTIVERT) 7-19 Tablet by Deangelo ege 25 MG 00:00: mouth 3 of tablet 00 times Medicin daily as e needed for Dizziness. LamoTRIgine 2021-0 Yes [id number] 1{tbl} Take 1 [facility] 300 MG TB24 7-19 Tablet by Col [facility] 00:00: mouth of 00 daily. Medicin e amphetamine 2021-0 Yes [id number] 1{tbl} Take 1 [facility] -dextroamph 7-19 Tablet by Col lege etamine 00:00: mouth of (ADDERALL, 00 daily. Medicin 15MG,) 15 e MG tablet Hydrocortis 2021-0 Yes 1{appli Apply 1 [facility] one, 7-19 cation} applicatio [facility], 00:00: n of (ANUSOL-HC) 00 topically Med icin 2.5 % CREA two times e daily. Albuterol 2021-0 Yes [id number] INHALE ONE [facility] Sulfate 7-19 6 TO TWO [facility] (PROAIR 00:00: PUFFS BY of HFA) 108 00 MOUTH Medicin (90 Base) EVERY 6 e MCG/ACT HOURS AERS NEEDED FOR WHEEZING meclizine 2021-0 Yes [id number] 25mg Take 1 [facility] (ANTIVERT) 7-19 Tablet by [facility] e[facility] 25 MG 00:00: mouth 3 of tablet 00 times Medicin daily as e needed for Dizziness. LamoTRIgine 2021-0 Yes [id number] 1{tbl} Take 1 [facility] 300 MG TB24 7-19 Tablet by Col [facility] 00:00: mouth of 00 daily. Medicin e amphetamine 2021-0 Yes [id number] 1{tbl} Take 1 [facility] -dextroamph 7-19 Tablet by Col [facility] etamine 00:00: mouth of (ADDERALL, 00 daily. Medicin 15MG,) 15 e MG tablet hydrocortis 2021-0 Yes [facility] one 2.5 % 01-09 College cream 00:00: of 00 Medicin e Hydrocortis 2021-0 Yes 1{appli Apply 1 [facility] one, 7-19 cation} applicatio [facility], 00:00: n of (ANUSOL-HC) 00 topically Med icin 2.5 % CREA two times e daily. Albuterol 2021-0 Yes [id number] INHALE ONE [facility] Sulfate 7-19 6 TO TWO [facility] (PROAIR 00:00: PUFFS BY of HFA) 108 00 MOUTH Medicin (90 Base) EVERY 6 e MCG/ACT HOURS AERS NEEDED FOR WHEEZING meclizine 2021-0 Yes [id number] 25mg Take 1 [facility] (ANTIVERT) 7-19 Tablet by [facility] e[facility] 25 MG 00:00: mouth 3 of tablet 00 times Medicin daily as e needed for Dizziness. LamoTRIgine 2021-0 Yes [id number] 1{tbl} Take 1 [facility] 300 MG TB24 7-19 Tablet by Col [facility] 00:00: mouth of 00 daily. Medicin e amphetamine 2021-0 Yes [id number] 1{tbl} Take 1 [facility] -dextroamph 01-09 Tablet by Col joan etamine 00:00: mouth of (ADDERALL, 00 daily. Medicin 15MG,) 15 e MG tablet LamoTRIgine 2021- No [id number] 1{tbl} Take 1 [facility] 300 MG TB24 01-09 09-13 Tablet by John zavala 00:00: 00:00 mouth of 00 :00 daily. Medicin e fluticasone Yes [id number] 2{spray 2 Sprays [facility] (FLONASE) 7-14 } by Each [place] 50 MCG/ACT 00:00: Nostril of nasal spray 00 route two Med icin times e daily. fluticasone Yes [id number] 2{spray 2 Sprays [facility] (FLONASE) 7-14 } by Each [place] 50 MCG/ACT 00:00: Nostril of nasal spray 00 route two Med icin times e daily. fluticasone Yes [id number] 2{spray 2 Sprays [facility] (FLONASE) 7-14 } by Each [place] 50 MCG/ACT 00:00: Nostril of nasal spray 00 route two Med icin times e daily. fluticasone Yes [id number] 2{spray 2 Sprays [facility] (FLONASE) 7-14 } by Each [place] 50 MCG/ACT 00:00: Nostril of nasal spray 00 route two Med icin times e daily. fluticasone 0 Yes [id number] 2{spray 2 Sprays [facility] (FLONASE) 7-14 } by Each [place] 50 MCG/ACT 00:00: Nostril of nasal spray 00 route two Med icin times e daily. fluticasone 2021-0 Yes [id number] 2{spray 2 Sprays [facility] (FLONASE) 7-14 } by Each [place] 50 MCG/ACT 00:00: Nostril of nasal spray 00 route two Med icin times e daily. fluticasone 0 Yes [id number] 2{spray 2 Sprays [facility] (FLONASE) 7-14 } by Each [place] 50 MCG/ACT 00:00: Nostril of nasal spray 00 route two Med icin times e daily. fluticasone Yes [id number] 2{spray 2 Sprays [facility] (FLONASE) 7-14 } by Each [place] 50 MCG/ACT 00:00: Nostril of nasal spray 00 route two Med icin times e daily. fluticasone Yes [id number] 2{spray 2 Sprays [facility] (FLONASE) 7-14 } by Each [place] 50 MCG/ACT 00:00: Nostril of nasal spray 00 route two Med icin times e daily. fluticasone Yes [id number] 2{spray 2 Sprays [facility] (FLONASE) 7-14 } by Each [place] 50 MCG/ACT 00:00: Nostril of nasal spray 00 route two Med icin times e daily. fluticasone Yes [id number] 2{spray 2 Sprays [facility] (FLONASE) 7-14 } by Each [place] 50 MCG/ACT 00:00: Nostril of nasal spray 00 route two Med icin times e daily. fluticasone Yes [id number] 2{spray 2 Sprays [facility] (FLONASE) 7-14 } by Each [place] 50 MCG/ACT 00:00: Nostril of nasal spray 00 route two Med icin times e daily. fluconazole Yes [id number] Take 1 [facility] (DIFLUCAN) 7- tablet [place] 150 MG 00:00: every 72 of tablet 00 hours for Medicin three e doses, followed by maintenanc e fluconazol e therapy once per week for six months. fluconazole Yes [id number] Take 1 [facility] (DIFLUCAN) 7- tablet [place] 150 MG 00:00: every 72 of tablet 00 hours for Medicin three e doses, followed by maintenanc e fluconazol e therapy once per week for six months. fluconazole Yes [id number] Take 1 [facility] (DIFLUCAN) 7-07 tablet [place] 150 MG 00:00: every 72 of tablet 00 hours for Medicin three e doses, followed by maintenanc e fluconazol e therapy once per week for six months. fluticasone Yes 1{puff} Inhale 1 [facility] -salmeterol 7-05 Puff by [facility] (ADVAIR) [...] Medicin e fluticasone Yes 1{puff} Inhale 1 [facility] -salmeterol 6- Puff by Colle ge (ADVAIR) 13:13: mouth of 500-50 10 every 12 Medicin MCG/DOSE hours. e inhaler propranolol Yes [id number] 20mg Take 1 [facility] (INDERAL) 6- Tablet by Colle ge 20 MG 00:00: mouth 3 of tablet 00 times Medicin daily. e fluconazole Yes [id number] Take one [facility] (DIFLUCAN) 11-21 tab po [facility] 150 MG 00:00: now. And of tablet 00 one more Medicin tab po e after antibiotic course. For vaginal yeast infection vancomycin 2021- No [id number] 125mg Take 1 [facility] (VANCOCIN) 5-31 06-08 capsule by Co llege 125 MG 00:00: 04:59 mouth 3 of capsule 00 :00 times Medicin daily for e 7 days. For urine infection trazodone Yes [id number] 100mg Take 1 [facility] (DESYREL) 5-18 Tablet by Colle ge 100 MG 00:00: mouth of tablet 00 nightly. Medicin e LamoTRIgine Yes [id number] 1{tbl} Take 1 [facility] (LAMICTAL 5-18 Tablet by Colle ge XR) 250 MG 00:00: mouth of TB24 00 daily. Medicin e amphetamine Yes [id number] 1{tbl} Take 1 [facility] -dextroamph 5-18 Tablet by Col lege etamine 00:00: mouth of (ADDERALL, 00 daily. Medicin 5MG,) 5 MG e tablet trazodone Yes [id number] 100mg Take 1 [facility] (DESYREL) 5-18 Tablet by Colle ge 100 MG 00:00: mouth of tablet 00 nightly. Medicin e trazodone Yes [id number] 100mg Take 1 [facility] (DESYREL) 5-18 Tablet by Colle ge 100 MG 00:00: mouth of tablet 00 nightly. Medicin e trazodone 2022-0 Yes [id number] 100mg Take 1 [facility] (DESYREL) 5-18 Tablet by Colle ge 100 MG 00:00: mouth of tablet 00 nightly. Medicin e trazodone 2022-0 Yes [id number] 100mg Take 1 B aylor (DESYREL) 5-18 Tablet by Colle ge 100 MG 00:00: mouth of tablet 00 nightly. Medicin e trazodone 2022-0 2022- No [id number] 100mg Take 1 Mikal (DESYREL) 5-18 09-13 Tablet by Deangelo ege 100 MG 00:00: 00:00 mouth of tablet 00 :00 nightly. Medicin e Dexlansopra 2021-0 Yes Take 60mg B aylor zole 60 MG 5-13 PO daily Colle ge CPDR 00:00: of 00 Medicin e hydrOXYzine 2021-0 Yes [id number] 25mg Take 1 Mkial (ATARAX) 25 5-12 Tablet by Col lege MG tablet 00:00: mouth 3 of 00 times Medicin daily as e needed for Itching. Dexlansopra 2021-0 Yes 60mg Take 60 mg [facility] zole 5-12 by mouth [place] (DEXILANT) 00:00: daily. of 60 MG CPDR 00 Medicin e triamcinolo 2021-0 Yes [id number] Apply to [facility] 5-12 [facility] (KENALOG) 00:00: lesions 2 of 0.1 % cream 00 times Medicin daily e hydrOXYzine 2021-0 Yes [id number] 25mg Take 1 [facility] (ATARAX) 25 5-12 Tablet by [facility] MG tablet 00:00: mouth 3 of 00 times Medicin daily as e needed for Itching. hydrOXYzine 2022-0 Yes [id number] 25mg Take 1 [facility] (ATARAX) 25 5-12 Tablet by [facility] MG tablet 00:00: mouth 3 of 00 times Medicin daily as e needed for Itching. hydrOXYzine 2022-0 Yes [id number] 25mg Take 1 [facility] (ATARAX) 25 5-12 Tablet by [facility] MG tablet 00:00: mouth 3 of 00 times Medicin daily as e needed for Itching. hydrOXYzine 2021-0 Yes [id number] 25mg Take 1 [facility] (ATARAX) 25 5-12 Tablet by [facility] MG tablet 00:00: mouth 3 of 00 times Medicin daily as e needed for Itching. hydrOXYzine 2021-0 2022- No [id number] 25mg Take 1 [facility] (ATARAX) 25 5-12 09-13 Tablet by [facility] MG tablet 00:00: 00:00 mouth 3 of 00 :00 times Medicin daily as e needed for Itching. Spacer/Aero 2021-0 Yes [id number] Or any [facility] 413 other [facility] 00:00: covered of (BREATHERIT 00 spacer Medici n E DEANGELO compatible e SPACER with pt's ADULT) MISC inhalers. Spacer/Aero 2021-0 Yes [id number] Or any [address] other [facility] 00:00: covered of (BREATHERIT 00 spacer Medici n E DEANGELO compatible e SPACER with pt's ADULT) MISC inhalers. Spacer/Aero 2021-0 Yes [id number] Or any [address] other [facility] 00:00: covered of (BREATHERIT 00 spacer Medici n E DEANGELO compatible e SPACER with pt's ADULT) MISC inhalers. Spacer/Aero 2021-0 Yes [id number] Or any [place] [address] other [facility] 00:00: covered of (BREATHERIT 00 spacer Medici n E DEANGELO compatible e SPACER with pt's ADULT) MISC inhalers. Spacer/Aero 2021-0 Yes [id number] Or any [address] other [facility] 00:00: covered of (BREATHERIT 00 spacer Medici n E DEANGELO compatible e SPACER with pt's ADULT) MISC inhalers. Spacer/Aero 2021-0 Yes [id number] Or any [address] 00:00: covered of (BREATHERIT 00 spacer Medici n E DEANGELO compatible e SPACER with pt's ADULT) MISC inhalers. Spacer/Aero 2021-0 Yes [id number] Or any [address] other [facility] 00:00: covered of (BREATHERIT 00 spacer Medici n E DEANGELO compatible e SPACER with pt's ADULT) MISC inhalers. Spacer/Aero 2022-0 Yes [id number] Or any [facility] 413 other [facility] 00:00: covered of (BREATHERIT 00 spacer Medici n E DEANGELO compatible e SPACER with pt's ADULT) MISC inhalers. Spacer/Aero 2022-0 Yes [id number] Or any [place] [address] other [facility] 00:00: covered of (BREATHERIT 00 spacer Medici n E DEANGELO compatible e SPACER with pt's ADULT) MISC inhalers. Spacer/Aero 2022-0 Yes [id number] Or any [place] [address] other [facility] 00:00: covered of (BREATHERIT 00 spacer Medici n E DEANGELO compatible e SPACER with pt's ADULT) MISC inhalers. Spacer/Aero 2022-0 Yes [id number] Or any [place] [address] other [facility] 00:00: covered of (BREATHERIT 00 spacer Medici n E DEANGELO compatible e SPACER with pt's ADULT) MISC inhalers. Spacer/Aero 2022-0 Yes [id number] Or any [place] [address] other [facility] 00:00: covered of (BREATHERIT 00 spacer Medici n E DEANGELO compatible e SPACER with pt's ADULT) MISC inhalers. Spacer/Aero 2022-0 Yes [id number] Or any [place] [address] other [facility] 00:00: covered of (BREATHERIT 00 spacer Medici n E DEANGELO compatible e SPACER with pt's ADULT) MISC inhalers. dicyclomine 2021-2021- No 20mg Take [address] [facility] (BENTYL) 20 4-12 04-22 tablet (20 [facility] mg tablet 00:00: 23:59 mg total) Me dical 00 :00 by mouth 2 Center (two) times daily as needed (abdominal cramping) for up to 10 days. dicyclomine 2021-0 2021- No 20mg Take [address] [facility] (BENTYL) 20 4-12 04-22 tablet (20 [facility] mg tablet 00:00: 23:59 mg total) Me dical 00 :00 by mouth 2 Center (two) times daily as needed (abdominal cramping) for up to 10 days. dicyclomine 2021-2021- No 20mg Take [address] [facility] (BENTYL) 20 4-12 04-22 tablet (20 [facility] mg tablet 00:00: 23:59 mg total) Me dical 00 :00 by mouth 2 Center (two) times daily as needed (abdominal cramping) for up to 10 days. dicyclomine 2021-2021- No 20mg Take [address] [facility] (BENTYL) 20 4-12 -22 tablet (20 [facility] mg tablet 00:00: 23:59 mg total) Me dical 00 :00 by mouth 2 Center (two) times daily as needed (abdominal cramping) for up to 10 days. ondansetron 2021-2021- No 4mg Take [address] [facility] (ZOFRAN) 4 4-12 -19 tablet (4 [facility] MG tablet 00:00: 23:59 mg total) Me dical 00 :00 by mouth Center every 6 (six) hours for 7 days. ondansetron 2021-2021- No 4mg Take [address] [facility] (ZOFRAN) 4 4-12 04-19 tablet (4 [facility] MG tablet 00:00: 23:59 mg total) Me dical 00 :00 by mouth Center every 6 (six) hours for 7 days. ondansetron 2021-0 2021- No 4mg Take [address] [facility] (ZOFRAN) 4 4-12 -19 tablet (4 [facility] MG tablet 00:00: 23:59 mg total) Me dical 00 :00 by mouth Center every 6 (six) hours for 7 days. ondansetron 2021-0 2021- No 4mg Take [address] [facility] (ZOFRAN) 4 4-12 04-19 tablet (4 [facility] MG tablet 00:00: 23:59 mg total) Me dical 00 :00 by mouth Center every 6 (six) hours for 7 days. ondansetron 2021-0 Yes [id number] 8mg Take 1 [facility] (ZOFRAN-ODT 4-11 Tablet by [facility] ) 8 mg 00:00: mouth of disintegrat 00 every 8 Medic in ing tablet hours as e needed for Nausea. ondansetron 2022-0 Yes [id number] 8mg Take 1 [facility] (ZOFRAN-ODT 4-11 Tablet by [facility] ) 8 mg 00:00: mouth of disintegrat 00 every 8 Medic in ing tablet hours as e needed for Nausea. ondansetron 2021-0 Yes [id number] 8mg Take 1 [facility] (ZOFRAN-ODT 4-11 Tablet by [facility] ) 8 mg 00:00: mouth of disintegrat 00 every 8 Medic in ing tablet hours as e needed for Nausea. ondansetron 2021-0 Yes [id number] 8mg Take 1 [facility] (ZOFRAN-ODT 4-11 Tablet by [facility] ) 8 mg 00:00: mouth of disintegrat 00 every 8 Medic in ing tablet hours as e needed for Nausea. ondansetron 2021-0 Yes [id number] 8mg Take 1 [facility] (ZOFRAN-ODT 4-11 Tablet by [facility] ) 8 mg 00:00: mouth of disintegrat 00 every 8 Medic in ing tablet hours as e needed for Nausea. ondansetron 2021-0 Yes [id number] 8mg Take 1 [facility] (ZOFRAN-ODT 4-11 Tablet by [facility] ) 8 mg 00:00: mouth of disintegrat 00 every 8 Medic in ing tablet hours as e needed for Nausea. ondansetron 2021-0 Yes [id number] 8mg Take 1 [facility] (ZOFRAN-ODT 4-11 Tablet by [facility] ) 8 mg 00:00: mouth of disintegrat 00 every 8 Medic in ing tablet hours as e needed for Nausea. ondansetron 2021-0 Yes [id number] 8mg Take 1 [facility] (ZOFRAN-ODT 4-11 Tablet by [facility] ) 8 mg 00:00: mouth of disintegrat 00 every 8 Medic in ing tablet hours as e needed for Nausea. ondansetron 2021-0 Yes [id number] 8mg Take 1 [facility] (ZOFRAN-ODT 4-11 Tablet by [facility] ) 8 mg 00:00: mouth of disintegrat 00 every 8 Medic in ing tablet hours as e needed for Nausea. ondansetron 2021-0 Yes [id number] 8mg Take 1 [facility] (ZOFRAN-ODT 4-11 Tablet by [facility] ) 8 mg 00:00: mouth of disintegrat 00 every 8 Medic in ing tablet hours as e needed for Nausea. ondansetron 2022-0 Yes [id number] 8mg Take 1 [facility] (ZOFRAN-ODT 4-11 Tablet by [facility] ) 8 mg 00:00: mouth of disintegrat 00 every 8 Medic in ing tablet hours as e needed for Nausea. ondansetron 2022-0 Yes [id number] 8mg Take 1 [facility] (ZOFRAN-ODT 4-11 Tablet by [facility] ) 8 mg 00:00: mouth of disintegrat 00 every 8 Medic in ing tablet hours as e needed for Nausea. ondansetron 2022-0 Yes [id number] 8mg Take 1 [facility] (ZOFRAN-ODT 4-11 Tablet [...] gabapentin 2021-0 2022- No 800mg Take 1 [place] [facility] (NEURONTIN) 4-07 10-13 Tablet by Co llege 800 MG 00:00: 00:00 mouth 3 of tablet 00 :00 times Medicin daily. e gabapentin 2021-0 2021- No 1{tbl} Take 1 [facility] 800 mg 4-07 10-11 tablet by ity of tablet 00:00: 00:00 mouth in [place] 00 :00 the Medical morning Branch and 1 tablet at noon and 1 tablet in the evening. gabapentin 2021-0 2021- No 1{tbl} Take 1 [facility] 800 mg 4- 10-11 tablet by ity of tablet 00:00: 00:00 mouth in [place] 00 :00 the [facility] morning Branch and 1 tablet at noon and 1 tablet in the evening. fluticasone 2021-0 Yes 1{puff} Inhale 1 [facility] -salmeterol 3-18 Puff by [facility] (ADVAIR 14:16: mouth of DISKUS) 42 every 12 Medicin 500-50 hours. e MCG/DOSE inhaler trazodone 2021-0 Yes 100mg Take 100 [place] [facility] (DESYREL) 3-18 mg by [place] 100 MG 13:44: mouth of tablet 26 nightly. Medicin e lamotrigine 2021-0 Yes 100mg Take 100 [facility] (LAMICTAL) 3-18 mg by [place] 25 MG 13:44: mouth. of tablet 26 Medicin e azelastine- 2021-0 Yes SPRAY ONE [facility] fluticasone 3-17 SPRAY IN ity of 137-50 00:00: EACH [place] mcg/spray 00 NOSTRIL Medical nasal spray TWICE Branch DAILY NEEDED azelastine- 2-0 Yes SPRAY ONE [facility] fluticasone 3-17 SPRAY IN ity of 137-50 00:00: EACH [place] mcg/spray 00 NOSTRIL Medical nasal spray TWICE [...] SPRAY IN ity of 137-50 00:00: EACH [place] mcg/spray 00 NOSTRIL Medical nasal spray TWICE Branch DAILY NEEDED azelastine- 2022-0 Yes SPRAY ONE [facility] fluticasone 3-17 SPRAY IN ity of 137-50 00:00: EACH [place] mcg/spray 00 NOSTRIL Medical nasal spray TWICE Branch DAILY NEEDED azelastine- 2022-0 Yes SPRAY ONE [facility] fluticasone 3-17 SPRAY IN ity of 137-50 00:00: EACH [place] mcg/spray 00 NOSTRIL Medical nasal spray TWICE Branch DAILY NEEDED azelastine- 2022-0 Yes SPRAY ONE [facility] fluticasone 3-17 SPRAY IN ity of 137-50 00:00: EACH [place] mcg/spray 00 NOSTRIL Medical nasal spray TWICE Branch DAILY NEEDED azelastine- 2022-0 Yes SPRAY ONE [facility] fluticasone 3-17 SPRAY IN ity of 137-50 00:00: EACH [place] mcg/spray 00 NOSTRIL Medical nasal spray TWICE Branch DAILY NEEDED azelastine- 2022-0 Yes SPRAY ONE [facility] fluticasone 3-17 SPRAY IN ity of 137-50 00:00: EACH [place] mcg/spray 00 NOSTRIL Medical nasal spray TWICE Branch DAILY NEEDED azelastine- 2022-0 Yes SPRAY ONE [facility] fluticasone 3-17 SPRAY IN ity of 137-50 00:00: EACH [place] mcg/spray 00 NOSTRIL Medical nasal spray TWICE Branch DAILY NEEDED azelastine- 2022-0 Yes SPRAY ONE [facility] fluticasone 3-17 SPRAY IN ity of 137-50 00:00: EACH [place] mcg/spray 00 NOSTRIL Medical nasal spray TWICE Branch DAILY NEEDED azelastine- 2022-0 Yes SPRAY ONE [facility] fluticasone 3-17 SPRAY IN ity of 137-50 00:00: EACH [place] mcg/spray 00 NOSTRIL Medical nasal spray TWICE Branch DAILY NEEDED azelastine- 2022-0 Yes SPRAY ONE [facility] fluticasone 3-17 SPRAY IN ity of 137-50 00:00: EACH [place] mcg/spray 00 NOSTRIL Medical nasal spray TWICE Branch DAILY NEEDED azelastine- 2022-0 Yes SPRAY ONE [facility] fluticasone 3-17 SPRAY IN ity of 137-50 00:00: EACH [place] mcg/spray 00 NOSTRIL Medical nasal spray TWICE Branch DAILY NEEDED azelastine- 2022-0 Yes SPRAY ONE [facility] fluticasone 3-17 SPRAY IN ity of 137-50 00:00: EACH [place] mcg/spray 00 NOSTRIL Medical nasal spray TWICE Branch DAILY NEEDED azelastine- 2022-0 Yes SPRAY ONE [facility] fluticasone 3-17 SPRAY IN ity of 137-50 00:00: EACH [place] mcg/spray 00 NOSTRIL Medical nasal spray TWICE Branch DAILY NEEDED azelastine- 2022-0 Yes SPRAY ONE [facility] fluticasone 3-17 SPRAY IN ity of 137-50 00:00: EACH [place] mcg/spray 00 NOSTRIL Medical nasal spray TWICE Branch DAILY NEEDED azelastine- 2022-0 Yes SPRAY ONE [facility] fluticasone 3-17 SPRAY IN ity of 137-50 00:00: EACH [place] mcg/spray 00 NOSTRIL Medical nasal spray TWICE Branch DAILY NEEDED azelastine- 2022-0 Yes SPRAY ONE [facility] fluticasone 3-17 SPRAY IN ity of 137-50 00:00: EACH [place] mcg/spray 00 NOSTRIL Medical nasal spray TWICE Branch DAILY NEEDED Azelastine- 2022-0 Yes [id number] SPRAY ONE [facility] Fluticasone 3-17 6 SPRAY IN [facility] ege 137-50 00:00: EACH of MCG/ACT 00 NOSTRIL Medicin SUSP TWICE e DAILY NEEDED Azelastine- 2022-0 Yes [id number] SPRAY ONE [facility] Fluticasone 3-17 6 SPRAY IN [facility] ege 137-50 00:00: EACH of MCG/ACT 00 NOSTRIL Medicin SUSP TWICE e DAILY NEEDED Azelastine- 2022-0 Yes [id number] SPRAY ONE [facility] Fluticasone 3-17 6 SPRAY IN [facility] ege 137-50 00:00: EACH of MCG/ACT 00 NOSTRIL Medicin SUSP TWICE e DAILY NEEDED Azelastine- 2022-0 Yes [id number] SPRAY ONE [facility] Fluticasone 3-17 6 SPRAY IN [id number] 00:00: EACH of MCG/ACT 00 NOSTRIL Medicin SUSP TWICE e DAILY NEEDED Azelastine- 2021-0 Yes [id number] SPRAY ONE [facility] Fluticasone 3-17 6 SPRAY IN [place] [address] 00:00: EACH of MCG/ACT 00 NOSTRIL Medicin SUSP TWICE e DAILY NEEDED Azelastine- 2021-0 Yes [id number] SPRAY ONE [facility] Fluticasone 3-17 6 SPRAY IN [place] [address] 00:00: EACH of MCG/ACT 00 NOSTRIL Medicin SUSP TWICE e DAILY NEEDED Azelastine- 2021-0 Yes [id number] SPRAY ONE [facility] Fluticasone 3-17 6 SPRAY IN [place] [address] 00:00: EACH of MCG/ACT 00 NOSTRIL Medicin SUSP TWICE e DAILY NEEDED Azelastine- 2021-0 Yes [id number] SPRAY ONE [facility] Fluticasone 3-17 6 SPRAY IN [place] [address] 00:00: EACH of MCG/ACT 00 NOSTRIL Medicin SUSP TWICE e DAILY NEEDED Azelastine- 2021-0 Yes [id number] SPRAY ONE [facility] Fluticasone 3-17 6 SPRAY IN [place] [address] 00:00: EACH of MCG/ACT 00 NOSTRIL Medicin SUSP TWICE e DAILY NEEDED Albuterol 2021-0 Yes [id number] INHALE ONE [facility] Sulfate 3-17 6 TO TWO College (PROAIR 00:00: PUFFS BY of HFA) 108 00 MOUTH Medicin (90 Base) EVERY 6 e MCG/ACT HOURS AERS NEEDED FOR WHEEZING fluconazole 2021-0 Yes [id number] 150mg Take 1 [facility] (DIFLUCAN) 3-17 Tablet by [facility] 150 MG 00:00: mouth of tablet 00 daily. Medicin e Azelastine- 2021-0 Yes [id number] SPRAY ONE [facility] Fluticasone 3-17 6 SPRAY IN [place] [address] 00:00: EACH of MCG/ACT 00 NOSTRIL Medicin SUSP TWICE e DAILY NEEDED Albuterol 2021-0 Yes [id number] INHALE ONE [facility] Sulfate 3-17 6 TO TWO [place] (PROAIR 00:00: PUFFS BY of HFA) 108 00 MOUTH Medicin (90 Base) EVERY 6 e MCG/ACT HOURS AERS NEEDED FOR WHEEZING Azelastine- 2021-0 Yes [id number] SPRAY ONE [facility] Fluticasone 3-17 6 [facility]AY [facility] 137-[facility] 00:00: EACH of MCG/ACT 00 NOSTRIL Medicin SUSP TWICE e DAILY NEEDED Azelastine- 2021-0 Yes [id number] SPRAY ONE [facility] Fluticasone 3-17 6 SPRAY IN [facility] 137-50 00:00: EACH of MCG/ACT 00 NOSTRIL Medicin SUSP TWICE e DAILY NEEDED Azelastine- 2021-0 Yes [id number] SPRAY ONE [facility] Fluticasone 3-17 6 SPRAY IN [facility] [address] 00:00: EACH of MCG/ACT 00 NOSTRIL Medicin SUSP TWICE e DAILY NEEDED Azelastine- 2021-0 202- No [id number] SPRAY ONE [facility] Fluticasone 3-17 11-08 6 SPRAY IN [facility] [address] 00:00: 00:00 EACH of MCG/ACT 00 :00 NOSTRIL Medicin SUSP TWICE e DAILY NEEDED benzonatate 2021-0 202- No [id number] 100mg Take 1 [facility] (TESSALON 3-17 03-28 capsule by [facility] joan TORRES) 100 00:00: 04:59 mouth 3 of mg capsule 00 :00 times Medicin daily as e needed for Cough for up to 10 days. ondansetron 2021-0 Yes [id number] 8mg Take 1 [facility] (ZOFRAN-ODT 3-09 Tablet by [facility] legada ) 8 mg 00:00: mouth of disintegrat 00 every 8 Medic in ing tablet hours as e needed for Nausea. meclizine 2021-0 Yes [id number] 25mg Take 1 [facility] (ANTIVERT) 3-09 Tablet by [facility] 25 MG 00:00: mouth 3 of tablet 00 times Medicin daily as e needed for Dizziness. meclizine 2021-0 Yes [id number] 25mg Take 1 [facility] (ANTIVERT) 3-09 Tablet by [facility] e[facility] 25 MG 00:00: mouth 3 of tablet 00 times Medicin daily as e needed for Dizziness. azithromyci 2021-0 Yes [id number] Take as [facility] n 3-07 directed [place] (ZITHROMAX) 00:00: on package of 250 MG 00 labeling. Medicin tablet Two pills e by mouth for the first day and then 1 pill daily until done. propranolol 2021-0 Yes 5 mg bid x [facility] (INDERAL) 3-01 5 days [facility] 10 MG 00:00: then 10 mg of tablet 00 bid Medicin e propranolol 2021-0 2021- No 5 mg bid x [facility] (INDERAL) 3 06-02 5 days College 10 MG 00:00: 00:00 then 10 mg of tablet 00 :00 bid Medicin e Sodium 0 Yes Use as [facility] Sulfate-Mag 2-22 directed [facility] ege Sulfate-KCl 00:00: of (SUTAB) 00 Medicin [id number] e 8 MG TABS Sodium 2021-0 Yes Use as [facility] Sulfate-Mag 2-22 directed [facility] Sulfate-KCl 00:00: of (SUTAB) 00 Medicin [id number] e 8 MG TABS Dexlansopra 2021-0 Yes 60mg Take 60 mg [facility] zole 2-17 by mouth [place] (DEXILANT) 00:00: daily. of 60 MG CPDR 00 Medicin e trazodone 2021-0 Yes 100mg Take 100 [place] [facility] (DESYREL) 1-04 mg by [place] 100 MG 11:35: mouth of tablet 08 nightly. Medicin e lamotrigine 2021-0 Yes 100mg Take 100 [facility] (LAMICTAL) 1-04 mg by [place] 25 MG 11:35: mouth. of tablet 08 Medicin e trazodone 2021-0 Yes 100mg Take 100 [place] [facility] (DESYREL) 1-04 mg by [place] 100 MG 11:35: mouth of tablet 08 nightly. Medicin e lamotrigine 2021-0 Yes 100mg Take 100 [facility] (LAMICTAL) 1-04 mg by [place] 25 MG 11:35: mouth. of tablet 08 Medicin e fluticasone 2021-0 Yes 1{puff} Inhale 1 [facility] -salmeterol 1-04 Puff by [facility] (ADVAIR 00:00: mouth two of DISKUS) 00 times Medicin 250-50 daily. e MCG/DOSE inhaler fluticasone Yes 1{puff} Inhale 1 [facility] -salmeterol 1-04 Puff by [facility] (ADVAIR 00:00: mouth two of DISKUS) 00 times Medicin 250-50 daily. e MCG/DOSE inhaler fluticasone Yes 1{puff} Inhale 1 [facility] -salmeterol 1-04 Puff by Colle ge (ADVAIR 00:00: mouth two of DISKUS) 00 times Medicin 250-50 daily. e MCG/DOSE inhaler fluticasone Yes 1{puff} Inhale 1 [facility] -salmeterol 1-04 Puff by Colle ge (ADVAIR 00:00: mouth two of DISKUS) 00 times Medicin 250-50 daily. e MCG/DOSE inhaler azithromyci Yes [id number] Take as [facility] n - [facility] (ZITHROMAX) 00:00: on package of 250 MG 00 labeling. Medicin tablet Two pills e by mouth for the first day and then 1 pill daily until done. azithromyci Yes [id number] Take as [facility] n 1-03 [facility] (ZITHROMAX) 00:00: on package of 250 MG 00 labeling. Medicin tablet Two pills e by mouth for the first day and then 1 pill daily until done. predniSONE 2021- No [id number] 40mg Take 2 [facility] (DELTASONE) 06-26 Tablets by [facility] 20 MG 00:00: 05:59 mouth of tablet 00 :00 daily for Medicin 5 days. e predniSONE 2021-2021- No [id number] 40mg Take 2 [facility] (DELTASONE) 06-26- Tablets by [facility] 20 MG 00:00: 05:59 mouth of tablet 00 :00 daily for Medicin 5 days. e methylPREDN 2020-06 Yes [id number] Day 1: 24 [facility] ISolone 4 2-15 mg on day [...] (1 tablet) before breakfast. methylPREDN 2020-06 Yes [id number] Day 1: 24 [facility] ISolone 4 2-15 mg on day [...] breakfast. trazodone 2020-06 Yes 100mg Take 100 [place] [facility] (DESYREL) 1-10 mg by [place] 100 MG 11:29: mouth of tablet 50 [...] tablet 00 times Medicin daily. e trazodone 0 Yes 100mg Take 100 [place] [facility] (DESYREL) 9-10 mg by [place] 100 MG 13:55: mouth of tablet 36 nightly. Medicin e lamotrigine 2020-0 Yes 100mg Take 100 [facility] (LAMICTAL) 9-10 mg by [place] 25 MG 13:55: mouth. of tablet 36 Medicin e lamotrigine 2020-0 Yes 100mg Take 100 [facility] (LAMICTAL) 9-10 mg by [place] 25 MG 13:55: mouth. of tablet 36 Medicin e trazodone 2020-0 Yes 100mg Take 100 [place] [facility] (DESYREL) 9-10 mg by [place] 100 MG 13:55: mouth of tablet 36 nightly. Medicin e lamotrigine 2020-0 Yes 100mg Take 100 [facility] (LAMICTAL) 9-10 mg by [place] 25 MG 13:55: mouth. of tablet 36 Medicin e azithromyci 2020-0 Yes [id number] Take as [facility] n 8-24 directed [place] (ZITHROMAX) 00:00: on package of 250 MG 00 labeling. Medicin tablet Two pills e by mouth for the first day and then 1 pill daily until done. Benzocaine- Yes 1U Take 1 [facility] or Menthol 8-24 Units by [place] (CHLORASEPT 00:00: mouth 3 of IC) 6-10 MG 00 times Medicin LOZG daily as e needed. Benzocaine- 2020-0 Yes 1U Take 1 [facility] or Menthol 8-24 Units by [place] (CHLORASEPT 00:00: mouth 3 of IC) 6-10 MG 00 times Medicin LOZG daily as e needed. Benzocaine- 2020-0 Yes 1U Take 1 [facility] or Menthol 8-24 Units by [place] (CHLORASEPT 00:00: mouth 3 of IC) 6-10 MG 00 times Medicin LOZG daily as e needed. Benzocaine- 0 Yes 1U Take 1 [facility] or Menthol 8-24 Units by [place] (CHLORASEPT 00:00: mouth 3 of IC) 6-10 MG 00 times Medicin LOZG daily as e needed. azithromyci Yes [id number] Take as [facility] n 8-24 [facility] (ZITHROMAX) 00:00: on package of 250 MG 00 labeling. Medicin tablet Two pills e by mouth for the first day and then 1 pill daily until done. Benzocaine- Yes 1U Take 1 [facility] or Menthol 8-24 Units by [place] (CHLORASEPT 00:00: mouth 3 of IC) 6-10 MG 00 times Medicin LOZG daily as e needed. azithromyci 2020- No [id number] Take as [facility] n 8-24 11-10 [facility] (ZITHROMAX) 00:00: 00:00 on package of 250 MG 00 :00 labeling. Medicin tablet Two pills e by mouth for the first day and then 1 pill daily until done. Levocetiriz 2020-0 Yes [id number] 1{tbl} Take 1 [facility] in[facility] 8-02 Tablet by [facility] 00:00: mouth of ride 5 MG 00 daily. Medicin TABS e Levocetiriz 2020-0 Yes [id number] 1{tbl} Take 1 [facility] ine 8-02 [facility] by [place] [facility] mouth of ride 5 MG 00 daily. Medicin TABS e Levocetiriz 2020-0 Yes [id number] 1{tbl} Take 1 [facility] 8-02 [facility] [place] [facility] mouth of ride 5 MG 00 daily. Medicin TABS e Levocetiriz 2020-0 Yes [id number] 1{tbl} Take 1 [facility] ine 8-02 Tablet by [facility] 00:00: mouth of ride 5 MG 00 daily. Medicin TABS e Levocetiriz 2020-0 Yes [id number] 1{tbl} Take 1 [facility] ine 8-02 Tablet by [facility] 00:00: mouth of ride 5 MG 00 daily. Medicin TABS e Levocetiriz 2020-0 Yes [id number] 1{tbl} Take 1 [facility] ine 8-02 Tablet by [facility] 00:00: mouth of ride 5 MG 00 daily. Medicin TABS e Levocetiriz 2020-0 Yes [id number] 1{tbl} Take 1 [facility] ine 8-02 Tablet by [facility] 00:00: mouth of ride 5 MG 00 daily. Medicin TABS e Levocetiriz 2020-0 Yes [id number] 1{tbl} Take 1 [facility] ine 8-02 Tablet by [facility] 00:00: mouth of ride 5 MG 00 daily. Medicin TABS e Levocetiriz 2020-0 Yes [id number] 1{tbl} Take 1 [facility] ine 8-02 Tablet by [facility] 00:00: mouth of ride 5 MG 00 daily. Medicin TABS e Levocetiriz 2020-0 Yes [id number] 1{tbl} Take 1 [facility] in[facility] 8-02 Tablet by [facility] 00:00: mouth of ride 5 MG 00 daily. Medicin TABS e Levocetiriz 2020-0 Yes [id number] 1{tbl} Take 1 [facility] ine 8-02 Tablet by [facility] 00:00: mouth of ride 5 MG 00 daily. Medicin TABS e Levocetiriz 2020-0 Yes [id number] 1{tbl} Take 1 [facility] in[facility] 8-02 Tablet by [facility] 00:00: mouth of ride 5 MG 00 daily. Medicin TABS e Levocetiriz 2020-0 Yes [id number] 1{tbl} Take 1 [facility] ine 8-02 Tablet by [facility] 00:00: mouth of ride 5 MG 00 daily. Medicin TABS e Levocetiriz 2020-0 Yes [id number] 1{tbl} Take 1 [facility] in[facility] 8-02 Tablet by [facility] 00:00: mouth of ride 5 MG 00 daily. Medicin TABS e Levocetiriz 2020-0 Yes [id number] 1{tbl} Take 1 [facility] ine 8-02 Tablet by [facility] 00:00: mouth of ride 5 MG 00 daily. Medicin TABS e Levocetiriz 2020-0 Yes [id number] 1{tbl} Take 1 [facility] in[facility] 8-02 Tablet by [facility] 00:00: mouth of ride 5 MG 00 daily. Medicin TABS e Levocetiriz 2020-0 Yes [id number] 1{tbl} Take 1 [facility] ine 8-02 Tablet by [facility] 00:00: mouth of ride 5 MG 00 daily. Medicin TABS e Levocetiriz 2020-0 Yes [id number] 1{tbl} Take 1 [facility] ine 8-02 Tablet by [facility] 00:00: mouth of ride 5 MG 00 daily. Medicin TABS e Levocetiriz 2020- Yes [id number] 1{tbl} Take 1 [facility] ine 8-02 Tablet by [facility] 00:00: mouth of ride 5 MG 00 daily. Medicin TABS e meclizine 0 Yes [id number] 25mg Take 1 [facility] (ANTIVERT) 7-23 Tablet by [facility] 25 MG 00:00: mouth 3 of tablet 00 times Medicin daily as e needed for Dizziness. ondansetron 0 Yes [id number] 8mg Take 1 [facility] (ZOFRAN-ODT 7-23 Tablet by [facility] ) 8 mg 00:00: mouth of disintegrat 00 every 8 Medic in ing tablet hours as e needed for Nausea. meclizine 0 Yes [id number] 25mg Take 1 [facility] (ANTIVERT) 7-23 Tablet by [facility] 25 MG 00:00: mouth 3 of tablet 00 times Medicin daily as e needed for Dizziness. ondansetron 0 Yes [id number] 8mg Take 1 [facility] (ZOFRAN-ODT 7-23 Tablet by [facility] ) 8 mg 00:00: mouth of disintegrat 00 every 8 Medic in ing tablet hours as e needed for Nausea. meclizine 2020-0 Yes [id number] 25mg Take 1 [facility] (ANTIVERT) 7-23 Tablet by [facility] 25 MG 00:00: mouth 3 of tablet 00 times Medicin daily as e needed for Dizziness. ondansetron 2020-0 Yes [id number] 8mg Take 1 [facility] (ZOFRAN-ODT 7-23 Tablet by [facility] ) 8 mg 00:00: mouth of disintegrat 00 every 8 Medic in ing tablet hours as e needed for Nausea. meclizine 2020-0 Yes [id number] 25mg Take 1 [facility] (ANTIVERT) 7-23 Tablet by [facility] 25 MG 00:00: mouth 3 of tablet 00 times Medicin daily as e needed for Dizziness. ondansetron 2020-0 Yes [id number] 8mg Take 1 [facility] (ZOFRAN-ODT 7-23 Tablet by [facility] ) 8 mg 00:00: mouth of disintegrat 00 every 8 Medic in ing tablet hours as e needed for Nausea. meclizine 2020-0 Yes [id number] 25mg Take 1 [facility] (ANTIVERT) 7-23 Tablet by [facility] 25 MG 00:00: mouth 3 of tablet 00 times Medicin daily as e needed for Dizziness. ondansetron 2020-0 Yes [id number] 8mg Take 1 [facility] (ZOFRAN-ODT 7-23 Tablet by [facility] ) 8 mg 00:00: mouth of disintegrat 00 every 8 Medic in ing tablet hours as e needed for Nausea. azithromyci 2020-0 Yes [id number] Take as [facility] n 7-15 [facility] (ZITHROMAX) 00:00: on package of 250 MG 00 labeling. Medicin tablet Two pills e by mouth for the first day and then 1 pill daily until done. azithromyci 2020-0 Yes [id number] Take as [facility] n 7-15 [facility] (ZITHROMAX) 00:00: on package of 250 MG 00 labeling. Medicin tablet Two pills e by mouth for the first day and then 1 pill daily until done. azithromyci 2021-0 Yes [id number] Take as [facility] n 7-15 [facility] (ZITHROMAX) 00:00: on package of 250 MG 00 labeling. Medicin tablet Two pills e by mouth for the first day and then 1 pill daily until done. azithromyci 0 Yes [id number] Take as [facility] n 7-15 [facility] (ZITHROMAX) 00:00: on package of 250 MG 00 labeling. Medicin tablet Two pills e by mouth for the first day and then 1 pill daily until done. azithromyci Yes [id number] Take as [facility] n 7-15 [facility] (ZITHROMAX) 00:00: on package of 250 MG 00 labeling. Medicin tablet Two pills e by mouth for the first day and then 1 pill daily until done. Dexlansopra Yes [id number] 1{tbl} Take 1 [facility] zole 7-13 Tablet by [place] (DEXILANT) 00:00: mouth of 60 MG CPDR 00 daily. Medicin e Dexlansopra Yes [id number] 1{tbl} Take 1 [facility] zole 7-13 Tablet by [place] (DEXILANT) 00:00: mouth of 60 MG CPDR 00 daily. Medicin e Dexlansopra 2020- Yes [id number] 1{tbl} Take 1 [facility] zole 7-13 Tablet by [place] (DEXILANT) 00:00: mouth of 60 MG CPDR 00 daily. Medicin e Dexlansopra 2020-0 Yes [id number] 1{tbl} Take 1 [facility] zole 7-13 Tablet by [place] (DEXILANT) 00:00: mouth of 60 MG CPDR 00 daily. Medicin e Dexlansopra 2020-0 Yes [id number] 1{tbl} Take 1 [facility] zole 7-13 Tablet by [place] (DEXILANT) 00:00: mouth of 60 MG CPDR 00 daily. Medicin e guaifenesin 2020-0 Yes [id number] 600mg Take 1 [facility] (MUCINEX) 7-08 6 Tablet by [facility] ge 600 MG SR 00:00: mouth two of tablet 00 times Medicin daily. e Levocetiriz 2020-0 Yes [id number] 1{tbl} Take 1 [facility] ine 7-08 6 Tablet by [facility] 00:00: mouth of ride 5 MG 00 daily as Medici n TABS needed. e Azelastine- 2020-0 Yes [id number] 1{spray 1 [place] by [facility] Fluticasone -08 6 } Nasal [address] 00:00: route 2 of MCG/ACT 00 times Medicin SUSP daily as e needed. albuterol 2020-0 Yes [id number] 90ug Inhale 1-2 [facility] 108 (90 7-08 6 Puffs by [facility]) 00:00: mouth of mcg/act 00 every 6 Medicin inhaler hours as e needed for Wheezing. guaifenesin 2020-0 Yes [id number] 600mg Take 1 [facility] (MUCINEX) 7-08 6 Tablet by [facility] 600 MG SR 00:00: mouth two of tablet 00 times Medicin daily. e Levocetiriz 2020-0 Yes [id number] 1{tbl} Take 1 [facility] ine 7-08 6 Tablet by [facility] 00:00: mouth of ride 5 MG 00 daily as Medici n TABS needed. e Azelastine- 2020-0 Yes [id number] 1{spray 1 [place] by [facility] Fluticasone - 6 } Nasal [place] [address] 00:00: route 2 of MCG/ACT 00 times Medicin SUSP daily as e needed. albuterol 2020-0 Yes [id number] 90ug Inhale 1-2 [facility] 108 (90 7-08 6 Puffs by [facility]) 00:00: mouth of mcg/act 00 every 6 Medicin inhaler hours as e needed for Wheezing. guaifenesin 2020-0 Yes [id number] 600mg Take 1 [facility] (MUCINEX) 7-08 6 Tablet by [facility] 600 MG SR 00:00: mouth two of tablet 00 times Medicin daily. e Levocetiriz 2020-0 Yes [id number] 1{tbl} Take 1 [facility] ine 7-08 6 Tablet by [facility] 00:00: mouth of ride 5 MG 00 daily as Medici n TABS needed. e Azelastine- 2020-0 Yes [id number] 1{spray 1 [place] by [facility] Fluticasone 7-08 6 } Nasal [place] [address] 00:00: route 2 of MCG/ACT 00 times Medicin SUSP daily as e needed. albuterol 2020-0 Yes [id number] 90ug Inhale 1-2 [facility] 108 (90 7-08 6 Puffs by [facility]) 00:00: mouth of mcg/act 00 every 6 Medicin inhaler hours as e needed for Wheezing. guaifenesin 0 Yes [id number] 600mg Take 1 [facility] (MUCINEX) 7-08 6 Tablet by [facility] 600 MG SR 00:00: mouth two of tablet 00 times Medicin daily. e Levocetiriz 0 Yes [id number] 1{tbl} Take 1 [facility] ine 7-08 6 Tablet by [facility] 00:00: mouth of ride 5 MG 00 daily as Medici n TABS needed. e Azelastine- Yes [id number] 1{spray 1 [place] by [facility] Fluticasone 12-29 6 } [place] [address] 00:00: route 2 of MCG/ACT 00 times Medicin SUSP daily as e needed. albuterol Yes [id number] 90ug Inhale 1-2 [facility] 108 (90 7-08 6 Puffs by [facility]) 00:00: mouth of mcg/act 00 every 6 Medicin inhaler hours as e needed for Wheezing. Levocetiriz 0 Yes [id number] 1{tbl} Take 1 [facility] ine 7-08 6 Tablet by [facility] 00:00: mouth of ride 5 MG 00 daily as Medici n TABS needed. e guaifenesin 0 Yes [id number] 600mg Take 1 [facility] (MUCINEX) 7-08 6 Tablet by [facility] 600 MG SR 00:00: mouth two of tablet 00 times Medicin daily. e Levocetiriz 2020-0 Yes [id number] 1{tbl} Take 1 [facility] ine 7-08 6 Tablet by [facility] 00:00: mouth of ride 5 MG 00 daily as Medici n TABS needed. e Azelastine- 0 Yes [id number] 1{spray 1 [place] by [facility] Fluticasone 12-29 6 } [place] [address] 00:00: route 2 of MCG/ACT 00 times Medicin SUSP daily as e needed. albuterol 2020-0 Yes [id number] 90ug Inhale 1-2 [facility] 108 (90 7-08 6 Puffs by [place] [facility]) 00:00: mouth of mcg/act 00 every 6 Medicin inhaler hours as e needed for Wheezing. Levocetiriz 2020-0 Yes [id number] 1{tbl} Take 1 [facility] ine 7-08 6 Tablet by [facility] 00:00: mouth of ride 5 MG 00 daily as Medici n TABS needed. e Adalimumab 2020-0 Yes [id number] 40mg Inject 40 [facility] 40 MG/0.4ML 6-30 mg into [facility]NKT 00:00: the skin of 00 every 14 Medicin days. e Adalimumab 2020-0 Yes [id number] 40mg Inject 40 [facility] 40 MG/0.4ML 6-30 mg into Colle [facility]NKT 00:00: the skin of 00 every 14 Medicin days. e Adalimumab 2020-0 Yes [id number] 40mg Inject 40 [facility] 40 MG/0.4ML 6-30 mg into Colle [facility]NK[facility] 00:00: the skin of 00 every 14 Medicin days. e Adalimumab 2020-0 Yes [id number] 40mg Inject 40 [facility] 40 MG/0.4ML 6-30 mg into Colle [facility]NK[facility] 00:00: the skin of 00 every 14 Medicin days. e Adalimumab 2020-0 Yes [id number] 40mg Inject 40 [facility] 40 MG/0.4ML 6-30 mg into Colle [facility]NK[facility] 00:00: the skin of 00 every 14 Medicin days. e Adalimumab 2020-0 2022- No [id number] 40mg Inject 40 [facility] 40 MG/0.4ML 6-30 03-18 mg into [facility] 00:00: 00:00 the skin of 00 :00 every 14 Medicin days. e ondansetron 2020-0 Yes [id number] 8mg Take 1 [facility] (ZOFRAN) 8 6-21 Tablet by [facility] mg tablet 00:00: mouth of 00 every 8 Medicin hours as e needed. ondansetron 2020-0 Yes [id number] 8mg Take 1 [facility] (ZOFRAN) 8 6-21 Tablet by [facility] mg tablet 00:00: mouth of 00 every 8 Medicin hours as e needed. ondansetron 2020-0 Yes [id number] 8mg Take 1 [facility] (ZOFRAN) 8 6-21 Tablet by [facility] mg tablet 00:00: mouth of 00 every 8 Medicin hours as e needed. ondansetron 2020-0 Yes [id number] 8mg Take 1 [facility] (ZOFRAN) 8 6-21 Tablet by [facility] mg tablet 00:00: mouth of 00 every 8 Medicin hours as e needed. ondansetron 2020-0 Yes [id number] 8mg Take 1 [facility] (ZOFRAN) 8 6-21 Tablet by [facility] mg tablet 00:00: mouth of 00 every 8 Medicin hours as e needed. fluticasone 0 Yes 2{spray 2 Sprays [facility] (FLONASE) 6-15 } by Each [place] 50 MCG/ACT 00:00: Nostril of nasal spray 00 route two Med icin times e daily. fluticasone 0 Yes 2{spray 2 Sprays [facility] (FLONASE) 6-15 } by Each [place] 50 MCG/ACT 00:00: Nostril of nasal spray 00 route two Med icin times e daily. fluticasone 0 Yes 2{spray 2 Sprays [facility] (FLONASE) 6-15 } by Each [place] 50 MCG/ACT 00:00: Nostril of nasal spray 00 route two Med icin times e daily. fluticasone 0 Yes 2{spray 2 Sprays [facility] (FLONASE) 6-15 } by Each [place] 50 MCG/ACT 00:00: Nostril of nasal spray 00 route two Med icin times e daily. fluticasone 0 Yes 2{spray 2 Sprays [facility] (FLONASE) 6-15 } by [facility] 50 MCG/ACT 00:00: Nostril of nasal spray 00 route two Med icin times e daily. fluticasone 2020-0 Yes 2{spray 2 Sprays [facility] (FLONASE) 6-15 } by [facility] [employer] 50 MCG/ACT 00:00: Nostril of nasal spray 00 route two Med icin times e daily. fluticasone 0 Yes 2{spray 2 Sprays [facility] (FLONASE) 6-15 } by Each [place] 50 MCG/ACT 00:00: Nostril of nasal spray 00 route two Med icin times e daily. trazodone Yes 100mg Take 100 [place] [facility] (DESYREL) 6-11 mg by [place] 100 MG 11:34: mouth of tablet 44 nightly. Medicin e lamotrigine Yes 100mg Take 100 [facility] (LAMICTAL) 6-11 mg by [place] 25 MG 11:34: mouth. of tablet 44 Medicin e Apixaban Yes [id number] 1{tbl} Take 1 [facility] (ELIQUIS) 5 6-04 Tablet by [facility] MG TABS 00:00: mouth two of 00 times Medicin daily. e Apixaban Yes [id number] 1{tbl} Take 1 [facility] (ELIQUIS) 5 6-04 Tablet by [facility] MG TABS 00:00: mouth two of 00 times Medicin daily. e Apixaban Yes [id number] 1{tbl} Take 1 [facility] (ELIQUIS) 5 6-04 Tablet by [facility] MG TABS 00:00: mouth two of 00 times Medicin daily. e Apixaban Yes [id number] 1{tbl} Take 1 [facility] (ELIQUIS) 5 6-04 Tablet by [facility] MG TABS 00:00: mouth two of 00 times Medicin daily. e Apixaban Yes [id number] 1{tbl} Take 1 [facility] (ELIQUIS) 5 6-04 Tablet by [facility] MG TABS 00:00: mouth two of 00 times Medicin daily. e Apixaban Yes [id number] 1{tbl} Take 1 [facility] (ELIQUIS) 5 6-04 Tablet by [facility] MG TABS 00:00: mouth two of 00 times Medicin daily. e Dexlansopra Yes [id number] 1{tbl} Take 1 [facility] zole 6-02 Tablet by [place] (DEXILANT) 00:00: mouth of 60 MG CPDR [...] 200 [facility] (LAMICTAL) 5-24 mg by [place] 100 MG 00:00: mouth. of tablet 00 [...] e daily. Hydrocortis Yes 1{appli Apply 1 [facility] one, 5-21 cation} [facility], 00:00: n of (ANUSOL-HC) 00 topically Med icin 2.5 % CREA two times e daily. Hydrocortis Yes 1{appli Apply 1 [facility] one, 5-21 cation} [facility]atio [facility], 00:00: n of (ANUSOL-HC) 00 topically Med icin 2.5 % CREA two times e daily. Hydrocortis Yes 1{appli Apply 1 [facility] one, 5-21 cation} [facility], 00:00: n of (ANUSOL-HC) 00 topically Med icin 2.5 % CREA two times e daily. Hydrocortis Yes 1{appli Apply 1 [facility] one, 5-21 cation} [facility]atio [facility], 00:00: n of (ANUSOL-HC) 00 topically Med icin 2.5 % CREA two times e daily. Hydrocortis Yes 1{appli Apply 1 [facility] one, 5- cation} [facility], 00:00: n of (ANUSOL-HC) 00 topically Med icin 2.5 % CREA two times e daily. Hydrocortis Yes 1{appli Apply 1 [facility] one, 5-21 cation} [facility]atio [facility], 00:00: n of (ANUSOL-HC) 00 topically Med icin 2.5 % CREA two times e daily. Amphetamine Amphetamine Yes SARTHAKE Q0.5D TAKE 1 [facility] -Dextroamph -Dextroamph 10-12 STORM M.D. TABLET [facility] etamine 5 etamine 5 00:00: TWICE an s MG Oral MG Oral 00 DAILY. Tablet Tablet dextroamphe 2021- No 1{tbl} QD Take [address] tamine-amph 10-1224 tablet by [facility] etamine 5 00:00: 00:00 mouth Medica l mg Tab 00 :00 daily In Center the afternoon . dextroamphe 2021- No 1{tbl} QD Take [address] tamine-amph 4-21 03-17 tablet by [facility] etamine 5 00:00: 00:00 mouth Medica l mg Tab 00 :00 daily In Center the afternoon . dextroamphe 2021- No 1{tbl} QD Take [address] tamine-amph 4-21 03-17 tablet by [facility] etamine 5 00:00: 00:00 mouth Medica l mg Tab 00 :00 daily In Center the afternoon . dextroamphe 2021- No 1{tbl} QD Take [address] tamine-amph 4-03-17 tablet by [facility] etamine 5 00:00: 00:00 mouth Medica l mg Tab 00 :00 daily In Center the afternoon . ELIQUIS 5 Yes [id number] TAKE ONE [facility] MG TABS 4-14 TABLET BY [place] 00:00: MOUTH of 00 TWICE A Medicin DAY e meclizine Yes 25mg Take 1 [facility] (ANTIVERT) 1-20 Tablet by [facility] 25 MG 00:00: mouth 3 of tablet 00 times Medicin daily as e needed for Dizziness. ondansetron Yes 8mg Take 1 [facility] (ZOFRAN) 8 1-20 Tablet by [facility] mg tablet 00:00: mouth of 00 every 8 Medicin hours as e needed. meclizine Yes 25mg Take 1 [facility] (ANTIVERT) 1-20 [...] 4 [facility] (LIALDA) 1-05 Tablets by [facility] 1.2 g TBEC 00:00: mouth of 00 daily. Medicin e trazodone 2019-06 Yes 100mg Take 100 [place] [facility] (DESYREL) 2-22 mg by [place] 100 MG 20:30: mouth of tablet 18 nightly. Medicin e lamotrigine 2019-06 Yes 100mg Take 100 [facility] (LAMICTAL) 2-22 mg by [place] 25 MG 20:30: mouth. of tablet 18 Medicin e trazodone 2019-06 Yes 100mg Take 100 [place] [facility] (DESYREL) 2-22 mg by [place] 100 MG 14:30: mouth of tablet 18 nightly. Medicin e lamotrigine 2019-06 Yes 100mg Take 100 [facility] (LAMICTAL) 2-22 mg by [place] 25 MG 14:30: mouth. of tablet 18 Medicin e ELIQUIS 5 2019-06 Yes [id number] TAKE ONE [facility] MG TABS 2-09 TABLET BY [place] 00:00: MOUTH of 00 TWICE A Medicin DAY e Dexlansopra 2019-06 Yes [id number] 1{tbl} Take 1 [facility] zole 2-04 Tablet by [place] (DEXILANT) 00:00: mouth of 60 MG CPDR 00 daily. Medicin e Dexlansopra 2019-06 Yes [id number] 1{tbl} Take 1 [facility] zole 2-04 Tablet by [place] (DEXILANT) 00:00: mouth of 60 MG CPDR 00 daily. Medicin e Norethin-Et 2019-06 2020- No Take by [facility] Estrad-Fe 07-1219 mouth. [facility] (LO 19:45: 00:00 of LOESTRIN 56 :00 Medicin FE) 1 MG-10 e MCG / 10 MCG TABS Norethin-Et 2019-06 2020- No Take by [facility] Estrad-Fe 07-1219 mouth. Colle ge [facility] (LO 19:45: 00:00 of LOESTRIN 56 :00 Medicin FE) 1 MG-10 e MCG / 10 MCG TABS trazodone 2019-06 Yes 100mg Take 100 [place] [facility] (DESYREL) 1-19 mg by [place] 100 MG 19:45: mouth of tablet 50 nightly. Medicin e lamotrigine 2019-06 Yes 100mg Take 100 [facility] (LAMICTAL) 1-19 mg by [place] 25 MG 19:45: mouth. of tablet 50 Medicin e trazodone 2019-06 Yes 100mg Take 100 [place] [facility] (DESYREL) 1-19 mg by [place] 100 MG 19:45: mouth of tablet 50 nightly. Medicin e lamotrigine 2019-06 Yes 100mg Take 100 [facility] (LAMICTAL) 1-19 mg by [facility] 25 MG 19:45: mouth. of tablet 50 Medicin e fluticasone 2019-06 Yes 2{spray 2 Sprays [facility] (FLONASE) 1-19 } by Each [place] 50 MCG/ACT 00:00: Nostril of nasal spray 00 route two Med icin times e daily. gabapentin 2019-06 Yes 300mg Take 1 [facility] (NEURONTIN) 1-19 capsule by [facility] 300 MG 00:00: mouth 3 of capsule 00 times Medicin daily. e fluticasone 2019-06 Yes 2{spray 2 Sprays [facility] (FLONASE) 1-19 } by Each [place] 50 MCG/ACT 00:00: Nostril of nasal spray 00 route two Med icin times e daily. fluticasone 2019-06 Yes 2{spray 2 Sprays [facility] (FLONASE) 1-19 } by Each [place] 50 MCG/ACT 00:00: Nostril of nasal spray 00 route two Med icin times e daily. gabapentin 2019-06 Yes 300mg Take 1 [facility] (NEURONTIN) 1-19 capsule by [facility] 300 MG 00:00: mouth 3 of capsule 00 times Medicin daily. e fluticasone 2019-06 Yes 2{spray 2 Sprays [facility] (FLONASE) 1-19 } by Each [place] 50 MCG/ACT 00:00: Nostril of nasal spray 00 route two Med icin times e daily. gabapentin 2019-06 Yes 300mg Take 1 [facility] (NEURONTIN) 1-19 capsule by [facility] 300 MG 00:00: mouth 3 of capsule 00 times Medicin daily. e fluticasone 2019-06 Yes 2{spray 2 Sprays [facility] (FLONASE) 1-19 } by Each [place] 50 MCG/ACT 00:00: Nostril of nasal spray 00 route two Med icin times e daily. gabapentin 2019-06 Yes 300mg Take 1 [facility] (NEURONTIN) 1-19 capsule by [facility] 300 MG 00:00: mouth 3 of capsule 00 times Medicin daily. e gabapentin 2019-06 Yes 300mg Take 1 [facility] (NEURONTIN) 1-19 capsule by [facility] 300 MG 00:00: mouth 3 of capsule 00 times Medicin daily. e gabapentin 2020-1 Yes 300mg Take 1 [facility] (NEURONTIN) 1-19 capsule by [facility] 300 MG 00:00: mouth 3 of capsule 00 times Medicin daily. e ketoconazol 2020-1 Yes Apply to [facility] [...] 1-18 affected ity of shampoo 00:00: areas [place] 00 daily. Medical Apply to Branch affected areas and let shampoo sit for 5 minutes then rinse. ketoconazol 2020- Yes Apply to [facility] 2 % 1-18 affected ity of shampoo 00:00: [facility] daily. Medical Apply to Branch affected areas and let shampoo sit for 5 minutes then rinse. ketoconazol 2020- Yes Apply to [facility] 2 % 1-18 affected ity of shampoo 00:00: [facility] daily. Medical Apply to Branch affected areas and let shampoo sit for 5 minutes then rinse. pantoprazol 2019-06 Yes 40mg Take 1 Tab [facility] e 1-03 by mouth [facility] (PROTONIX) 00:00: daily. 1 of 40 MG 00 tablet by Medicin tablet mouth e every day pantoprazol 2019-06 Yes 40mg Take 1 Tab [facility] e 1-03 by mouth [place] (PROTONIX) 00:00: daily. 1 of 40 MG 00 tablet by Medicin tablet mouth e every day pantoprazol 2019-06 Yes 40mg Take 1 Tab [facility] e 1-03 by mouth [place] (PROTONIX) 00:00: daily. 1 of 40 MG 00 tablet by Medicin tablet mouth e every day pantoprazol 2019-06 Yes 40mg Take 1 Tab [facility] e 1-03 by mouth [facility] (PROTONIX) 00:00: daily. 1 of 40 MG 00 tablet by Medicin tablet mouth e every day pantoprazol 2019-06 Yes 40mg Take 1 Tab [facility] e 1-03 by mouth [place] (PROTONIX) 00:00: daily. 1 of 40 MG 00 tablet by Medicin tablet mouth e every day pantoprazol 2019-06- No 40mg Take 1 Tab [facility] e 1-03 09-10 by mouth [facility] (PROTONIX) 00:00: 00:00 daily. 1 of 40 MG 00 :00 tablet by Medicin tablet mouth e every day pantoprazol 2019-06- No 40mg Take 1 Tab [facility] e 1-03 09-10 by mouth [place] (PROTONIX) 00:00: 00:00 daily. 1 of 40 MG 00 :00 tablet by Medicin tablet mouth e every day Apixaban 2020-1 Yes [id number] 5mg Take 5 mg [facility] (ELIQUIS) 5 0-19 by mouth [facility] MG TABS 00:00: two times of 00 daily. Medicin e Apixaban 2020-1 Yes [id number] 5mg Take 5 mg [facility] (ELIQUIS) 5 0-19 by mouth [facility] MG TABS 00:00: two times of 00 daily. Medicin e clindamycin 2020-0 Yes [id number] Apply to [facility] 1 % gel 9-17 affected ity of 00:00: area(s) 2 [place] 00 (two) Medical times Branch daily. clindamycin 2020-0 Yes [id number] Apply to [facility] 1 % gel 9-17 affected ity of 00:00: area(s) 2 [place] 00 (two) Medical times Branch daily. clindamycin 2020-0 Yes [id number] Apply to [facility] 1 % gel 9-17 affected ity of 00:00: area(s) 2 [place] 00 (two) Medical times Branch daily. clindamycin 2020-0 Yes [id number] Apply to [facility] 1 % gel 9-17 affected ity of 00:00: area(s) 2 [place] 00 (two) Medical times Branch daily. clindamycin 2020-0 Yes [id number] Apply to [facility] 1 % gel 9-17 affected ity of 00:00: area(s) 2 [place] 00 (two) Medical times Branch daily. clindamycin 2020-0 Yes [id number] Apply to [facility] 1 % gel 9-17 affected ity of 00:00: area(s) 2 [place] 00 (two) Medical times Branch daily. clindamycin 2020-0 Yes [id number] Apply to [facility] 1 % gel 9-17 affected ity of 00:00: area(s) 2 [place] 00 (two) Medical times Branch daily. clindamycin 2020-0 Yes [id number] Apply to [facility] 1 % gel 9-17 affected ity of 00:00: area(s) 2 [place] 00 (two) Medical times Branch daily. clindamycin 2020-0 Yes [id number] Apply to [facility] 1 % gel 9-17 affected ity of 00:00: area(s) 2 [place] 00 (two) Medical times Branch daily. clindamycin 2020-0 Yes [id number] Apply to [facility] 1 % gel 9-17 affected ity of 00:00: area(s) 2 [place] 00 (two) Medical times Branch daily. clindamycin 2020-0 Yes [id number] Apply to [facility] 1 % gel 9-17 affected ity of 00:00: area(s) 2 [place] 00 (two) Medical times Branch daily. clindamycin 2020-0 Yes [id number] Apply to [facility] 1 % gel 9-17 affected ity of 00:00: area(s) 2 [place] 00 (two) Medical times Branch daily. clindamycin 2020-0 Yes [id number] Apply to [facility] 1 % gel 9-17 affected ity of 00:00: area(s) 2 [place] 00 (two) Medical times Branch daily. clindamycin 2020-0 Yes [id number] Apply to [facility] 1 % gel 9-17 affected ity of 00:00: area(s) 2 [place] 00 (two) Medical times Branch daily. clindamycin 2020-0 Yes [id number] Apply to [facility] 1 % gel 9-17 affected ity of 00:00: area(s) 2 [place] 00 (two) Medical times Branch daily. clindamycin 2020-0 Yes [id number] Apply to [facility] 1 % gel 9-17 affected ity of 00:00: area(s) 2 [place] 00 (two) Medical times Branch daily. clindamycin 2020-0 Yes [id number] Apply to [facility] 1 % gel 9-17 affected ity of 00:00: area(s) 2 [place] 00 (two) Medical times Branch daily. clindamycin 2020-0 Yes [id number] Apply to [facility] 1 % gel 9-17 affected ity of 00:00: area(s) 2 [place] 00 (two) Medical times Branch daily. clindamycin 2020-0 Yes [id number] Apply to [facility] 1 % gel 9-17 affected ity of 00:00: area(s) 2 [place] 00 (two) Medical times Branch daily. clindamycin 2020-0 Yes [id number] Apply to [facility] 1 % gel 9-17 affected ity of 00:00: area(s) 2 [place] 00 (two) Medical times Branch daily. clindamycin 2020-0 Yes [id number] Apply to [facility] 1 % gel 9-17 affected ity of 00:00: area(s) 2 [place] 00 (two) Medical times Branch daily. clindamycin 2020-0 Yes [id number] Apply to [facility] 1 % gel 9-17 affected ity of 00:00: area(s) 2 [place] 00 (two) Medical times Branch daily. clindamycin 2020-0 Yes [id number] Apply to [facility] 1 % gel 9-17 affected ity of 00:00: area(s) 2 [place] 00 (two) Medical times Branch daily. clindamycin 2020-0 Yes [id number] Apply to [facility] 1 % gel 9-17 affected ity of 00:00: area(s) 2 [place] 00 (two) Medical times Branch daily. clindamycin 2020-0 Yes [id number] Apply to [facility] 1 % gel 9-17 affected ity of 00:00: area(s) 2 [place] 00 (two) Medical times Branch daily. clindamycin 2020-0 Yes [id number] Apply to Univers 1 % gel 9-17 affected ity of 00:00: area(s) 2 [place] 00 (two) Medical times Branch daily. clindamycin 2020-0 Yes [id number] Apply to [facility] 1 % gel 9-17 affected ity of 00:00: area(s) 2 [place] 00 (two) Medical times Branch daily. clindamycin 2020-0 Yes [id number] Apply to [facility] 1 % gel 9-17 affected ity of 00:00: area(s) 2 [place] 00 (two) Medical times Branch daily. clindamycin 2020-0 Yes [id number] Apply to [facility] 1 % gel 9-17 affected ity of 00:00: area(s) 2 [place] 00 (two) Medical times Branch daily. clindamycin 2020-0 Yes [id number] Apply to [facility] 1 % gel 9-17 affected ity of 00:00: area(s) 2 [place] 00 (two) Medical times Branch daily. clindamycin 2020-0 Yes [id number] Apply to [facility] 1 % gel 9-17 affected ity of 00:00: area(s) 2 [place] 00 (two) Medical times Branch daily. clindamycin 2020-0 Yes [id number] Apply to [facility] 1 % gel 9-17 affected ity of 00:00: area(s) 2 [place] 00 (two) Medical times Branch daily. clindamycin 2020-0 Yes [id number] Apply to [facility] 1 % gel 9-17 affected ity of 00:00: area(s) 2 [place] 00 (two) Medical times Branch daily. fluticasone 2020-0 Yes [id number] 1{puff} Inhale 1 [facility] -salmeterol 8-06 Puff by Colle ge (ADVAIR 00:00: mouth two of DISKUS) 00 times Medicin 500-50 daily. e MCG/DOSE inhaler fluticasone 2020-0 Yes [id number] 1{puff} Inhale 1 [facility] -salmeterol 8-06 Puff by Colle ge (ADVAIR 00:00: mouth two of DISKUS) 00 times Medicin 500-50 daily. e MCG/DOSE inhaler fluticasone 2020-0 Yes [id number] 1{puff} Inhale 1 [facility] -salmeterol 8-06 Puff by [facility]le ge (ADVAIR 00:00: mouth two of DISKUS) 00 times Medicin 500-50 daily. e MCG/DOSE inhaler fluticasone 2020-0 Yes [id number] 1{puff} Inhale 1 [facility] -salmeterol 8-06 Puff by [facility] ge (ADVAIR 00:00: mouth two of DISKUS) 00 times Medicin 500-50 daily. e MCG/DOSE inhaler fluticasone 2020-0 Yes [id number] 1{puff} Inhale 1 [facility] -salmeterol 8-06 Puff by Colle ge (ADVAIR 00:00: mouth two of DISKUS) 00 times Medicin 500-50 daily. e MCG/DOSE inhaler fluticasone 2020-0 Yes [id number] 1{puff} Inhale 1 [facility] -salmeterol 8-06 Puff by Colle ge (ADVAIR 00:00: mouth two of DISKUS) 00 times Medicin 500-50 daily. e MCG/DOSE inhaler fluticasone 2020-0 Yes [id number] 1{puff} Inhale 1 [facility] -salmeterol 8-06 Puff by Colle ge (ADVAIR 00:00: mouth two of DISKUS) 00 times Medicin 500-50 daily. e MCG/DOSE inhaler fluticasone 2020-0 Yes [id number] 1{puff} Inhale 1 [facility] -salmeterol 8-06 Puff by Colle ge (ADVAIR 00:00: mouth two of DISKUS) 00 times Medicin 500-50 daily. e MCG/DOSE inhaler lamoTRIgine lamoTRIgine 2020-0 Yes SHAOJIE TAKE 2 UT 100 MG Oral 100 MG Oral 01-26 STORM M.D. TABLETS BY [facility] Tablet Tablet 00:00: MOUTH ans 00 BEDTIME Na 2019- No [SUPREP] [facility] Sulfate-K 01-26 Take as Colleg e Sulfate-Mg 00:00: 00:00 directed. o f Sulf 00 :00 Medicin (SUPREP e BOWEL PREP KIT) 17.5-3.13-1 .6 GM/177ML SOLN Na No [SUPREP] [facility] Sulfate-K 01-26 Take as [...] Tablet NEEDED FOR PAIN. ELIQUIS 2019- No [facility] DVT/PE 12-23 College STARTER 00:00: 00:00 of PACK 5 MG 00 :00 Medicin TABS e HYDROcodone 2019- No 1{tbl} 1 tablet, Univers -acetaminop 12-21 Oral, ity of hen (NORCO 06:15: 05:11 ONCE, 1 Tim as 5) 5-325 mg 00 :00 dose, Tue Med ical tablet 1 12/22/19 at [facility] h tablet 0115, DAVEY iohexol 2019- No 120mL 120 mL, Unive rs (OMNIPAQUE 12-21 Intravenou it y of 350 05:45: 05:45 s, ONCE, 1 [place] BULK-150 00 :00 dose, Tue Medica l mL) 12/22/19 at Branch injection 0045, 120 mL Routine aspirin 2020-0 2020- No 325mg 325 mg, Unive rs tablet 325 30 06-30 Oral, ity of mg 03:00: 03:34 ONCE, 1 [place] 00 :00 dose, [facility] 12/21/19 at Branch 2200, STAT methylPREDN methylPREDN 2019-0 Yes HOLGER PERAZA TAKE UT ISolone 4 ISolone 4 3-02 M.D. DIRECTED P hysici MG Oral MG Oral 00:00: ans Tablet Tablet 00 Therapy Therapy Pack Pack traMADol 50 2019-0 Yes [id number] 50mg Take 1 [facility] mg tablet 2 [id number] tablet by ity of 00:00: mouth [place] 00 every 6 Medical (six) Branch hours as needed for Pain (scale 4-6). traMADol 50 2020-0 Yes [id number] 50mg Take 1 [facility] mg tablet 2- [id number] tablet by ity of 00:00: mouth [place] 00 every 6 Medical (six) Branch hours as needed for Pain (scale 4-6). traMADol 50 2019-0 Yes [id number] 50mg Take 1 [facility] mg tablet 2- [id number] tablet by ity of 00:00: mouth [place] 00 every 6 Medical (six) Branch hours as needed for Pain (scale 4-6). traMADol 50 2020-0 Yes [id number] 50mg Take 1 [facility] mg tablet 2- [id number] tablet by ity of 00:00: mouth [place] 00 every 6 Medical (six) Branch hours as needed for Pain (scale 4-6). traMADol 50 2019-0 Yes [id number] 50mg Take 1 [facility] mg tablet 2- [id number] tablet by ity of 00:00: mouth [place] 00 every 6 Medical (six) Branch hours as needed for Pain (scale 4-6). traMADol 50 2020-0 Yes [id number] 50mg Take 1 [facility] mg tablet 2- [id number] tablet by ity of 00:00: mouth [place] 00 every 6 Medical (six) Branch hours as needed for Pain (scale 4-6). traMADol 50 2020-0 Yes [id number] 50mg Take 1 [facility] mg tablet 2-27 [id number] tablet by ity of 00:00: mouth [place] 00 every 6 Medical (six) Branch hours as needed for Pain (scale 4-6). traMADol 50 2019-0 Yes [id number] 50mg Take 1 [facility] mg tablet 2-27 [id number] tablet by ity of 00:00: mouth [place] 00 every 6 Medical (six) Branch hours as needed for Pain (scale 4-6). traMADol 50 2020-0 Yes [id number] 50mg Take 1 [facility] mg tablet 2-27 [id number] tablet by ity of 00:00: mouth [place] 00 every 6 Medical (six) Branch hours as needed for Pain (scale 4-6). traMADol 50 2020-0 Yes [id number] 50mg Take 1 [facility] mg tablet 2-27 [id number] tablet by ity of 00:00: mouth [place] 00 every 6 Medical (six) Branch hours as needed for Pain (scale 4-6). traMADol 50 2020-0 Yes [id number] 50mg Take 1 [facility] mg tablet 2-27 [id number] tablet by ity of 00:00: mouth [place] 00 every 6 Medical (six) Branch hours as needed for Pain (scale 4-6). traMADol 50 2020-0 Yes [id number] 50mg Take 1 [facility] mg tablet 2-27 [id number] tablet by ity of 00:00: mouth [place] 00 every 6 Medical (six) Branch hours as needed for Pain (scale 4-6). traMADol 50 2020-0 Yes [id number] 50mg Take 1 [facility] mg tablet 2-27 [id number] tablet by ity of 00:00: mouth [place] 00 every 6 Medical (six) Branch hours as needed for Pain (scale 4-6). traMADol 50 2020-0 Yes [id number] 50mg Take 1 [facility] mg tablet 2-27 [id number] tablet by ity of 00:00: mouth [place] 00 every 6 Medical (six) Branch hours as needed for Pain (scale 4-6). traMADol 50 2020-0 Yes [id number] 50mg Take 1 [facility] mg tablet 2-27 [id number] tablet by ity of 00:00: mouth [place] 00 every 6 Medical (six) Branch hours as needed for Pain (scale 4-6). traMADol 50 2020-0 Yes [id number] 50mg Take 1 [facility] mg tablet 2-27 [id number] tablet by ity of 00:00: mouth [place] 00 every 6 Medical (six) Branch hours as needed for Pain (scale 4-6). traMADol 50 2020-0 Yes [id number] 50mg Take 1 [facility] mg tablet 2-27 [id number] tablet by ity of 00:00: mouth [place] 00 every 6 Medical (six) Branch hours as needed for Pain (scale 4-6). traMADol 50 2020-0 Yes [id number] 50mg Take 1 [facility] mg tablet 2-27 [id number] tablet by ity of 00:00: mouth [place] 00 every 6 Medical (six) Branch hours as needed for Pain (scale 4-6). traMADol 50 2020-0 Yes [id number] 50mg Take 1 [facility] mg tablet 2-27 [id number] tablet by ity of 00:00: mouth [place] 00 every 6 Medical (six) Branch hours as needed for Pain (scale 4-6). traMADol 50 2020-0 Yes [id number] 50mg Take 1 [facility] mg tablet 2-27 [id number] tablet by ity of 00:00: mouth [place] 00 every 6 Medical (six) Branch hours as needed for Pain (scale 4-6). traMADol 50 2020-0 Yes [id number] 50mg Take 1 [facility] mg tablet 2-27 [id number] tablet by ity of 00:00: mouth [place] 00 every 6 Medical (six) Branch hours as needed for Pain (scale 4-6). traMADol 50 2020-0 Yes [id number] 50mg Take 1 [facility] mg tablet 2-27 [id number] tablet by ity of 00:00: mouth [place] 00 every 6 Medical (six) Branch hours as needed for Pain (scale 4-6). traMADol 50 2020-0 Yes [id number] 50mg Take 1 [facility] mg tablet 2-27 [id number] tablet by ity of 00:00: mouth [place] 00 every 6 Medical (six) Branch hours as needed for Pain (scale 4-6). traMADol 50 2020-0 Yes [id number] 50mg Take 1 [facility] mg tablet 2-27 [id number] tablet by ity of 00:00: mouth [place] 00 every 6 Medical (six) Branch hours as needed for Pain (scale 4-6). traMADol 50 2020-0 Yes [id number] 50mg Take 1 [facility] mg tablet 2-27 [id number] tablet by ity of 00:00: mouth [place] 00 every 6 Medical (six) Branch hours as needed for Pain (scale 4-6). traMADol 50 2020-0 Yes [id number] 50mg Take 1 [facility] mg tablet 2-27 [id number] tablet by ity of 00:00: mouth [place] 00 every 6 Medical (six) Branch hours as needed for Pain (scale 4-6). traMADol 50 2020-0 Yes [id number] 50mg Take 1 [facility] mg tablet 2-27 [id number] tablet by ity of 00:00: mouth [place] 00 every 6 Medical (six) Branch hours as needed for Pain (scale 4-6). traMADol 50 2020-0 Yes [id number] 50mg Take 1 [facility] mg tablet 2-27 [id number] tablet by ity of 00:00: mouth [place] 00 every 6 Medical (six) Branch hours as needed for Pain (scale 4-6). traMADol 50 2020-0 Yes [id number] 50mg Take 1 [facility] mg tablet 2-27 [id number] tablet by ity of 00:00: mouth [place] 00 every 6 Medical (six) Branch hours as needed for Pain (scale 4-6). traMADol 50 2020-0 Yes [id number] 50mg Take 1 [facility] mg tablet 2-27 [id number] tablet by ity of 00:00: mouth [place] 00 every 6 Medical (six) Branch hours as needed for Pain (scale 4-6). traMADol 50 2020-0 Yes [id number] 50mg Take 1 [facility] mg tablet 2-27 [id number] tablet by ity of 00:00: mouth [place] 00 every 6 Medical (six) Branch hours as needed for Pain (scale 4-6). traMADol 50 2020-0 Yes [id number] 50mg Take 1 [facility] mg tablet 2-27 [id number] tablet by ity of 00:00: mouth [place] 00 every 6 Medical (six) Branch hours as needed for Pain (scale 4-6). traMADol 50 2020-0 Yes [id number] 50mg Take 1 [facility] mg tablet 2-27 [id number] tablet by ity of 00:00: mouth [place] 00 every 6 Medical (six) Branch hours as needed for Pain (scale 4-6). traMADol 50 2020-0 Yes [id number] 50mg Take 1 [facility] mg tablet 2-27 [id number] tablet by ity of 00:00: mouth [place] 00 every 6 Medical (six) Branch hours as needed for Pain (scale 4-6). traMADol 50 2020-0 Yes [id number] 50mg Take 1 [facility] mg tablet 2-27 [id number] tablet by ity of 00:00: mouth [place] 00 every 6 Medical (six) Branch hours as needed for Pain (scale 4-6). traMADol 50 2020-0 Yes [id number] 50mg Take 1 [facility] mg tablet 08-20 [id number] tablet by ity of 00:00: mouth [place] 00 every 6 Medical (six) Branch hours as needed for Pain (scale 4-6). traMADol 50 2020-0 Yes [id number] 50mg Take 1 [facility] mg tablet 2 [id number] tablet by ity of 00:00: mouth [place] 00 every 6 Medical (six) Branch hours as needed for Pain (scale 4-6). methocarbam 2020-0 2020- No 750mg Take 750 [facility] ol 2-27 11-19 mg by [place] (ROBAXIN) 00:00: 00:00 mouth four o f 750 MG 00 :00 times Medicin tablet daily. e methocarbam 2020-0 2020- No 750mg Take 750 [facility] ol 2-27 11-19 mg by [place] (ROBAXIN) 00:00: 00:00 mouth four o f 750 MG 00 :00 times Medicin tablet daily. e methocarbam 2020-0 2020- No [id number] 1500mg Take 2 [facility] ol 750 mg 2 03-03 [id number] tablets by i ty of tablet 00:00: 05:59 mouth 4 [place] 00 :00 (four) Medical times Branch daily for 4 days. Mesalamine Mesalamine 2020-0 Yes KOBE 2 Q0.5D TAKE 2 UT 400 MG Oral 400 MG Oral 2-26 OBONYANO CAPSULE [facility] Capsule Capsule 00:00: INFORMATION CLERK BROKERAGE Twice ans Delayed Delayed 00 daily Release Release TDD:1.6gm Trezix Trezix 2020-0 Yes ISAI TAKE 2 UT 320.5-30-16 320.5-30-16 1-20 KAY CAPSULES [facility] MG Oral MG Oral 00:00: INFORMATION CLERK BROKERAGE BY MOUTH ans Capsule Capsule 00 EVERY 4 TO 6 HOURS NEEDED FOR PAIN ondansetron 2020-0 Yes [id number] 4mg Take 1 [facility] 4 mg 1-10 tablet by ity of disintegrat 00:00: mouth [place] ing tablet 00 every 12 Medic al (twelve) Branch hours as needed for Nausea and Vomiting (N/V). ondansetron 2020-0 Yes [id number] 4mg Take 1 [facility] 4 mg 1-10 tablet by ity of disintegrat 00:00: mouth [place] ing tablet 00 every 12 Medic al (twelve) Branch hours as needed for Nausea and Vomiting (N/V). ondansetron 2020-0 Yes [id number] 4mg Take 1 [facility] 4 mg 1-10 tablet by ity of disintegrat 00:00: mouth [place] ing tablet 00 every 12 Medic al (twelve) Branch hours as needed for Nausea and Vomiting (N/V). ondansetron 2020-0 Yes [id number] 4mg Take 1 [facility] 4 mg 1-10 tablet by ity of disintegrat 00:00: mouth [place] ing tablet 00 every 12 Medic al (twelve) Branch hours as needed for Nausea and Vomiting (N/V). ondansetron 2020-0 Yes [id number] 4mg Take 1 [facility] 4 mg 1-10 tablet by ity of disintegrat 00:00: mouth [place] ing tablet 00 every 12 Medic al (twelve) Branch hours as needed for Nausea and Vomiting (N/V). ondansetron 2020-0 Yes [id number] 4mg Take 1 [facility] 4 mg 1-10 tablet by ity of disintegrat 00:00: mouth [place] ing tablet 00 every 12 Medic al (twelve) Branch hours as needed for Nausea and Vomiting (N/V). ondansetron 2020-0 Yes [id number] 4mg Take 1 [facility] 4 mg 1-10 tablet by ity of disintegrat 00:00: mouth [place] ing tablet 00 every 12 Medic al (twelve) Branch hours as needed for Nausea and Vomiting (N/V). ondansetron 2020-0 Yes [id number] 4mg Take 1 [facility] 4 mg 1-10 tablet by ity of disintegrat 00:00: mouth [place] ing tablet 00 every 12 Medic al (twelve) Branch hours as needed for Nausea and Vomiting (N/V). ondansetron 2020-0 Yes [id number] 4mg Take 1 [facility] 4 mg 1-10 tablet by ity of disintegrat 00:00: mouth [place] ing tablet 00 every 12 Medic al (twelve) Branch hours as needed for Nausea and Vomiting (N/V). ondansetron 2020-0 Yes [id number] 4mg Take 1 [facility] 4 mg 1-10 tablet by ity of disintegrat 00:00: mouth [place] ing tablet 00 every 12 Medic al (twelve) Branch hours as needed for Nausea and Vomiting (N/V). ondansetron 2020-0 Yes [id number] 4mg Take 1 [facility] 4 mg 1-10 tablet by ity of disintegrat 00:00: mouth [place] ing tablet 00 every 12 Medic al (twelve) Branch hours as needed for Nausea and Vomiting (N/V). ondansetron 2020-0 Yes [id number] 4mg Take 1 [facility] 4 mg 1-10 tablet by ity of disintegrat 00:00: mouth [place] ing tablet 00 every 12 Medic al (twelve) Branch hours as needed for Nausea and Vomiting (N/V). ondansetron 2020-0 Yes [id number] 4mg Take 1 [facility] 4 mg 1-10 tablet by ity of disintegrat 00:00: mouth [place] ing tablet 00 every 12 Medic al (twelve) Branch hours as needed for Nausea and Vomiting (N/V). ondansetron 2020-0 Yes [id number] 4mg Take 1 [facility] 4 mg 1-10 tablet by ity of disintegrat 00:00: mouth [place] ing tablet 00 every 12 Medic al (twelve) Branch hours as needed for Nausea and Vomiting (N/V). ondansetron 2020-0 Yes [id number] 4mg Take 1 [facility] 4 mg 1-10 tablet by ity of disintegrat 00:00: mouth [place] ing tablet 00 every 12 Medic al (twelve) Branch hours as needed for Nausea and Vomiting (N/V). ondansetron 2020-0 Yes [id number] 4mg Take 1 [facility] 4 mg 1-10 tablet by ity of disintegrat 00:00: mouth [place] ing tablet 00 every 12 Medic al (twelve) Branch hours as needed for Nausea and Vomiting (N/V). ondansetron 2020-0 Yes [id number] 4mg Take 1 [facility] 4 mg 1-10 tablet by ity of disintegrat 00:00: mouth [place] ing tablet 00 every 12 Medic al (twelve) Branch hours as needed for Nausea and Vomiting (N/V). ondansetron 2020-0 Yes [id number] 4mg Take 1 [facility] 4 mg 1-10 tablet by ity of disintegrat 00:00: mouth [place] ing tablet 00 every 12 Medic al (twelve) Branch hours as needed for Nausea and Vomiting (N/V). ondansetron 2020-0 Yes [id number] 4mg Take 1 [facility] 4 mg 1-10 tablet by ity of disintegrat 00:00: mouth [place] ing tablet 00 every 12 Medic al (twelve) Branch hours as needed for Nausea and Vomiting (N/V). ondansetron 2020-0 Yes [id number] 4mg Take 1 [facility] 4 mg 1-10 tablet by ity of disintegrat 00:00: mouth [place] ing tablet 00 every 12 Medic al (twelve) Branch hours as needed for Nausea and Vomiting (N/V). ondansetron 2020-0 Yes [id number] 4mg Take 1 [facility] 4 mg 1-10 tablet by ity of disintegrat 00:00: mouth [place] ing tablet 00 every 12 Medic al (twelve) Branch hours as needed for Nausea and Vomiting (N/V). ondansetron 2020-0 Yes [id number] 4mg Take 1 [facility] 4 mg 1-10 tablet by ity of disintegrat 00:00: mouth [place] ing tablet 00 every 12 Medic al (twelve) Branch hours as needed for Nausea and Vomiting (N/V). ondansetron 2020-0 Yes [id number] 4mg Take 1 [facility] 4 mg 1-10 tablet by ity of disintegrat 00:00: mouth [place] ing tablet 00 every 12 Medic al (twelve) Branch hours as needed for Nausea and Vomiting (N/V). ondansetron 2020-0 Yes [id number] 4mg Take 1 [facility] 4 mg 1-10 tablet by ity of disintegrat 00:00: mouth [place] ing tablet 00 every 12 Medic al (twelve) Branch hours as needed for Nausea and Vomiting (N/V). ondansetron 2020-0 Yes [id number] 4mg Take 1 [facility] 4 mg 1-10 tablet by ity of disintegrat 00:00: mouth [place] ing tablet 00 every 12 Medic al (twelve) Branch hours as needed for Nausea and Vomiting (N/V). ondansetron 2020-0 Yes [id number] 4mg Take 1 [facility] 4 mg 1-10 tablet by ity of disintegrat 00:00: mouth [place] ing tablet 00 every 12 Medic al (twelve) Branch hours as needed for Nausea and Vomiting (N/V). ondansetron 2020-0 Yes [id number] 4mg Take 1 [facility] 4 mg 1-10 tablet by ity of disintegrat 00:00: mouth [place] ing tablet 00 every 12 Medic al (twelve) Branch hours as needed for Nausea and Vomiting (N/V). ondansetron 2020-0 Yes [id number] 4mg Take 1 [facility] 4 mg 1-10 tablet by ity of disintegrat 00:00: mouth [place] ing tablet 00 every 12 Medic al (twelve) Branch hours as needed for Nausea and Vomiting (N/V). ondansetron 2020-0 Yes [id number] 4mg Take 1 [facility] 4 mg 1-10 tablet by ity of disintegrat 00:00: mouth [place] ing tablet 00 every 12 Medic al (twelve) Branch hours as needed for Nausea and Vomiting (N/V). ondansetron 2020-0 Yes [id number] 4mg Take 1 [facility] 4 mg 1-10 tablet by ity of disintegrat 00:00: mouth [place] ing tablet 00 every 12 Medic al (twelve) Branch hours as needed for Nausea and Vomiting (N/V). ondansetron 2020-0 Yes [id number] 4mg Take 1 [facility] 4 mg 1-10 tablet by ity of disintegrat 00:00: mouth [place] ing tablet 00 every 12 Medic al (twelve) Branch hours as needed for Nausea and Vomiting (N/V). ondansetron 2020-0 Yes [id number] 4mg Take 1 [facility] 4 mg 1-10 tablet by ity of disintegrat 00:00: mouth [place] ing tablet 00 every 12 Medic al (twelve) Branch hours as needed for Nausea and Vomiting (N/V). ondansetron 2020-0 Yes [id number] 4mg Take 1 [facility] 4 mg 1-10 tablet by ity of disintegrat 00:00: mouth [place] ing tablet 00 every 12 Medic al (twelve) Branch hours as needed for Nausea and Vomiting (N/V). ondansetron 2020-0 Yes [id number] 4mg Take 1 [facility] 4 mg 1-10 tablet by ity of disintegrat 00:00: mouth [place] ing tablet 00 every 12 Medic al (twelve) Branch hours as needed for Nausea and Vomiting (N/V). ondansetron 2020-0 Yes [id number] 4mg Take 1 [facility] 4 mg 1-10 tablet by ity of disintegrat 00:00: mouth [place] ing tablet 00 every 12 Medic al (twelve) Branch hours as needed for Nausea and Vomiting (N/V). ondansetron 2020-0 Yes [id number] 4mg Take 1 [facility] 4 mg 1-10 tablet by ity of disintegrat 00:00: mouth [place] ing tablet 00 every 12 Medic al (twelve) Branch hours as needed for Nausea and Vomiting (N/V). ondansetron 2020-0 Yes [id number] 4mg Take 1 [facility] 4 mg 1-10 tablet by ity of disintegrat 00:00: mouth [place] ing tablet 00 every 12 Medic al (twelve) Branch hours as needed for Nausea and Vomiting (N/V). ondansetron Yes [id number] 4mg Take 1 [facility] 4 mg 1-10 tablet by ity of disintegrat 00:00: mouth [place] ing tablet 00 every 12 Medic al (twelve) Branch hours as needed for Nausea and Vomiting (N/V). Pregabalin Pregabalin 2018-06 Yes ISAI Q0.3333D TAKE 1 UT 75 MG Oral 75 MG Oral 1- KAY CAPSULE 3 [facility] Capsule Capsule 00:00: INFORMATION CLERK BROKERAGE TIMES ans 00 DAILY. Ibuprofen Ibuprofen 2018-06 Yes [place] 200 MG Oral 200 MG Oral 1-11 P hysici Tablet Tablet 00:00: ans 00 Fluticasone Fluticasone 2018-06 Yes CHONG Q0.5D INHALE ONE [place] -Salmeterol -Salmeterol 0-16 CHITRA PUFF BY [facility] 500-50 500-50 00:00: M.D. MOUTH ans MCG/DOSE MCG/DOSE 00 TWICE A Inhalation Inhalation DAY Aerosol Aerosol Powder Powder Breath Breath Activated Activated CPAP CPAP Yes CHONG Please UT Continuous Continuous 9-16 CHITRA provide [facility] Positive Positive 00:00: M.D. patient an s Airway Airway 00 with all Pressure Pressure necessary CPAP supplies including mask (please fit), tubing, filters, etc. Good for ONE YEAR Lidocaine 5 Lidocaine 5 Yes LUIS ANTONIO APPLY 1 UT % External % External 8-12 JAMALYARIA PATCH TO [facility] Patch Patch 00:00: M.D. THE ans 00 AFFECTED AREA AND LEAVE IN PLACE FOR 12 HOURS, THEN REMOVE AND LEAVE OFF FOR 12 HOURS. Proventil Proventil Yes CHONG INHALE ONE UT HFA 108 (90 HFA 108 (90 8-12 CHITRA TO TWO [facility] Base) Base) 00:00: M.D. PUFFS BY ans MCG/ACT MCG/ACT 00 MOUTH Inhalation Inhalation EVERY 4 Aerosol Aerosol HOURS Solution Solution NEEDED Diclofenac Diclofenac Yes LUIS ANTONIO APPLY 2 GM UT Sodium 1 % Sodium 1 % 8-08 JAMALYARIA OF GEL TO [facility] GEL GEL 00:00: M.D. AFFECTED ans 00 AREA 4 TIMES DAILY. DO NOT APPLY MORE THAN 8 GM DAILY TO ANY ONE AFFECTED AREA. Omeprazole Omeprazole Yes KOBE 1 QD TAKE 1 UT 40 MG Oral 40 MG Oral 01-23 OBONYANO CAPSULE [facility] Capsule Capsule 00:00: INFORMATION CLERK BROKERAGE DAILY ans Delayed Delayed 00 Release Release Yes COREY HOBSON 1 QD TAKE 1 UT 20 1-20 20 1-20 7-24 INFORMATION CLERK BR[employer]ERAGE TABLET Phy sici MG-MCG Oral MG-MCG Oral 00:00: DAILY. ans Tablet Tablet 00 Propranolol Propranolol Yes RAMOSOGARFIELDE TAKE ONE UT HCl - 20 MG HCl - 20 MG 7-08 STORM M.D. TABLET BY [facility] Oral Tablet Oral Tablet 00:00: MOUTH ans 00 TWICE A DAY NEEDED traZODone traZODone Yes RAMOSOJIE TAKE ONE UT HCl - 100 HCl [...] ans 00 DAILY NEEDED. SIMPONI 50 Yes [id number] INJECT 1 [facility] mg/0.5 mL 4-10 PEN (50 [facility] pen 00:00: MG) [facility]ospita injector 00 SUBCUTANEO l USLY EVERY 28 DAYS. SIMPONI 50 Yes [id number] INJECT 1 [facility] mg/0.5 mL 4-10 PEN (50 st pen 00:00: MG) Hospita injector 00 SUBCUTANEO l USLY EVERY 28 DAYS. SIMPONI 50 Yes [id number] INJECT 1 [facility] mg/0.5 mL 4-10 PEN (50 st pen 00:00: MG) Hospita injector 00 SUBCUTANEO l USLY EVERY 28 DAYS. SIMPONI 50 Yes [id number] INJECT 1 [facility] mg/0.5 mL 4-10 PEN [...] 800 [facility] (NEURONTIN) 0-01 mg by [facility] 800 MG 00:00: mouth 3 of tablet [...] for Pain (scale 4-6). LOESTRIN FE Yes [id number] 1{tbl} Take 1 Tab [facility] (MICROGESTI 4-02 by mouth ity of N FE 00:00: daily. [place] ,) 1.5 Branch mg-30 mcg (21)/75 mg (7) tablet LOESTRIN FE Yes [id number] 1{tbl} Take 1 Tab [facility] (MICROGESTI 4-02 by mouth ity of N FE 00:00: daily. [place] ,) 1.5 Branch mg-30 mcg (21)/75 mg (7) tablet LOESTRIN FE Yes [id number] 1{tbl} Take 1 Tab [facility] (MICROGESTI 4-02 by mouth ity of N FE 00:00: daily. [place] ,) 1.5 Branch mg-30 mcg (21)/75 mg (7) tablet LOESTRIN FE Yes [id number] 1{tbl} Take 1 Tab [facility] (MICROGESTI 4-02 by mouth ity of N FE 00:00: daily. [place] ,) 1.5 Branch mg-30 mcg (21)/75 mg (7) tablet LOESTRIN FE Yes [id number] 1{tbl} Take 1 Tab [facility] (MICROGESTI 4-02 by mouth ity of N FE 00:00: daily. [place] ,) 1.5 Branch mg-30 mcg (21)/75 mg (7) tablet LOESTRIN FE Yes [id number] 1{tbl} Take 1 Tab [facility] (MICROGESTI 4-02 by mouth ity of N FE 00:00: daily. [place] ,) 1.5 Branch mg-30 mcg (21)/75 mg (7) tablet LOESTRIN FE Yes [id number] 1{tbl} Take 1 Tab [facility] (MICROGESTI 4-02 by mouth ity of N FE 00:00: daily. [place] ,) 1.5 Branch mg-30 mcg (21)/75 mg (7) tablet LOESTRIN FE Yes [id number] 1{tbl} Take 1 Tab [facility] (MICROGESTI 4-02 by mouth ity of N FE 00:00: daily. [place] ,) 1.5 Branch mg-30 mcg (21)/75 mg (7) tablet LOESTRIN FE Yes [id number] 1{tbl} Take 1 Tab [facility] (MICROGESTI 4-02 by mouth ity of N FE 00:00: daily. [place] ,) 1.5 Branch mg-30 mcg (21)/75 mg (7) tablet LOESTRIN FE Yes [id number] 1{tbl} Take 1 Tab [facility] (MICROGESTI 4-02 by mouth ity of N FE 00:00: daily. [place] ,) 1.5 Branch mg-30 mcg (21)/75 mg (7) tablet LOESTRIN FE Yes [id number] 1{tbl} Take 1 Tab [facility] (MICROGESTI 4-02 by mouth ity of N FE 00:00: daily. [place] ,) 1.5 Branch mg-30 mcg (21)/75 mg (7) tablet LOESTRIN FE Yes [id number] 1{tbl} Take 1 Tab [facility] (MICROGESTI 4-02 by mouth ity of N FE 00:00: daily. [place] ,) 1.5 Branch mg-30 mcg (21)/75 mg (7) tablet LOESTRIN FE Yes [id number] 1{tbl} Take 1 Tab [facility] (MICROGESTI 4-02 by mouth ity of N FE 00:00: daily. [place] ,) 1.5 Branch mg-30 mcg (21)/75 mg (7) tablet LOESTRIN FE Yes [id number] 1{tbl} Take 1 [facility] (MICROGESTI 4-02 by mouth ity of N FE 00:00: daily. [place] ,) 1.5 Branch mg-30 mcg (21)/75 mg (7) tablet LOESTRIN FE Yes [id number] 1{tbl} Take 1 [facility] (MICROGESTI 4-02 by mouth ity of N FE 00:00: daily. [place] ,) 1.5 Branch mg-30 mcg (21)/75 mg (7) tablet LOESTRIN FE Yes [id number] 1{tbl} Take 1 [facility] (MICROGESTI 4-02 by mouth ity of N FE 00:00: daily. [place] ,) 1.5 Branch mg-30 mcg (21)/75 mg (7) tablet LOESTRIN FE Yes [id number] 1{tbl} Take 1 [facility] (MICROGESTI 4-02 by mouth ity of N FE 00:00: daily. [place] ,) 1.5 Branch mg-30 mcg (21)/75 mg (7) tablet LOESTRIN FE Yes [id number] 1{tbl} Take 1 [facility] (MICROGESTI 4-02 by mouth ity of N FE 00:00: daily. [place] ,) 1.5 Branch mg-30 mcg (21)/75 mg (7) tablet LOESTRIN FE Yes [id number] 1{tbl} Take 1 [facility] (MICROGESTI 4-02 by mouth ity of N FE 00:00: daily. [place] ,) 1.5 Branch mg-30 mcg (21)/75 mg (7) tablet LOESTRIN FE Yes [id number] 1{tbl} Take 1 [facility] (MICROGESTI 4-02 by mouth ity of N FE 00:00: daily. [place] ,) 1.5 Branch mg-30 mcg (21)/75 mg (7) tablet LOESTRIN FE Yes [id number] 1{tbl} Take 1 [facility] (MICROGESTI 4-02 by mouth ity of N FE 00:00: daily. [place] ,) 1.5 Branch mg-30 mcg (21)/75 mg (7) tablet LOESTRIN FE Yes [id number] 1{tbl} Take 1 [facility] (MICROGESTI 4-02 by mouth ity of N FE 00:00: daily. [place] ,) 1.5 Branch mg-30 mcg (21)/75 mg (7) tablet LOESTRIN FE Yes [id number] 1{tbl} Take 1 [facility] (MICROGESTI 4-02 by mouth ity of N FE 00:00: daily. [place] ,) 1.5 Branch mg-30 mcg (21)/75 mg (7) tablet LOESTRIN FE Yes [id number] 1{tbl} Take 1 Tab [facility] (MICROGESTI 4-02 by mouth ity of N FE 00:00: daily. [place] ,) 1.5 Branch mg-30 mcg (21)/75 mg (7) tablet LOESTRIN FE Yes [id number] 1{tbl} Take 1 [facility] (MICROGESTI 4-02 by mouth ity of N FE 00:00: daily. [place] ,) 1.5 Branch mg-30 mcg (21)/75 mg (7) tablet LOESTRIN FE Yes [id number] 1{tbl} Take 1 [facility] (MICROGESTI 4-02 by mouth ity of N FE 00:00: daily. [place] ,) 1.5 Branch mg-30 mcg (21)/75 mg (7) tablet LOESTRIN FE Yes [id number] 1{tbl} Take 1 Tab [facility] (MICROGESTI 4-02 by mouth ity of N FE 00:00: daily. [place] ,) 1.5 Branch mg-30 mcg (21)/75 mg (7) tablet LOESTRIN FE Yes [id number] 1{tbl} Take 1 Tab [facility] (MICROGESTI 4-02 by mouth ity of N FE 00:00: daily. [place] ,) 1.5 Branch mg-30 mcg (21)/75 mg (7) tablet LOESTRIN FE Yes [id number] 1{tbl} Take 1 Tab [facility] (MICROGESTI 4-02 by mouth ity of N FE 00:00: daily. [place] ,) 1.5 Branch mg-30 mcg (21)/75 mg (7) tablet LOESTRIN FE Yes [id number] 1{tbl} Take 1 Tab [facility] (MICROGESTI 4-02 by mouth ity of N FE 00:00: daily. [place] ,) 1.5 Branch mg-30 mcg (21)/75 mg (7) tablet LOESTRIN FE Yes [id number] 1{tbl} Take 1 Tab [facility] (MICROGESTI 4-02 by mouth ity of N FE 00:00: daily. [place] ,) 1.5 Branch mg-30 mcg (21)/75 mg (7) tablet LOESTRIN FE Yes [id number] 1{tbl} Take 1 Tab [facility] (MICROGESTI 4-02 by mouth ity of N FE 00:00: daily. [place] ,) 1.5 Branch mg-30 mcg (21)/75 mg (7) tablet LOESTRIN FE Yes [id number] 1{tbl} Take 1 Tab [facility] (MICROGESTI 4-02 by mouth ity of N FE 00:00: daily. [place] ,) 1.5 Branch mg-30 mcg (21)/75 mg (7) tablet LOESTRIN FE Yes [id number] 1{tbl} Take 1 Tab [facility] (MICROGESTI 4-02 by mouth ity of N FE 00:00: daily. [place] ,) 1.5 Branch mg-30 mcg (21)/75 mg (7) tablet LOESTRIN FE Yes [id number] 1{tbl} Take 1 Tab [facility] (MICROGESTI 4-02 by mouth ity of N FE 00:00: daily. [place] ,) 1.5 Branch mg-30 mcg (21)/75 mg (7) tablet LOESTRIN FE Yes [id number] 1{tbl} Take 1 Tab [facility] (MICROGESTI 4-02 by mouth ity of N FE 00:00: daily. [place] [facility] ,) 1.5 Branch mg-30 mcg (21)/75 mg (7) tablet LOESTRIN Yes [id number] 1{tbl} Take 1 Tab [facility] (MICROGESTI 4-02 by mouth ity of N FE 00:00: daily. [place] [facility] ,) 1.5 Branch mg-30 mcg (21)/75 mg (7) tablet LOESTRIN Yes [id number] 1{tbl} Take 1 Tab [facility] (MICROGESTI 4-02 by mouth ity of N FE 00:00: daily. [place] [facility] ,) 1.5 Branch mg-30 mcg (21)/75 mg (7) tablet BUPROPION 2013-06 Yes [id number] 450mg Take 450 Univers HCL 2-11 mg by ity of (WELLBUTRIN 14:24: mouth [place] ORAL) 03 daily. [facility] BUPROPION 2013-06 Yes [id number] 450mg Take 450 Univers HCL 2-11 mg by ity of (WELLBUTRIN 14:24: mouth [place] ORAL) 03 daily. [facility] BUPROPION 2013-06 Yes [id number] 450mg Take 450 [facility] HCL 2-11 mg by ity of (WELLBUTRIN 14:24: mouth [place] ORAL) 03 daily. [facility] BUPROPION 2013-06 Yes [id number] 450mg Take 450 [facility] HCL 2-11 mg by ity of (WELLBUTRIN 14:24: mouth [place] ORAL) 03 daily. [facility] BUPROPION 2013-06 Yes [id number] 450mg Take 450 [facility] HCL 2-11 mg by ity of (WELLBUTRIN 14:24: mouth [place] ORAL) 03 daily. [facility] BUPROPION 2013-06 Yes [id number] 450mg Take 450 [facility] HCL 2-11 mg by ity of (WELLBUTRIN 14:24: mouth [place] ORAL) 03 daily. [facility] BUPROPION 2013-06 Yes [id number] 450mg Take 450 [facility] HCL 2-11 mg by ity of (WELLBUTRIN 14:24: mouth [place] ORAL) 03 daily. Medical Branch BUPROPION 2013-06 Yes [id number] 450mg Take 450 [facility] HCL 2-11 mg by ity of (WELLBUTRIN 14:24: mouth [place] ORAL) 03 daily. [facility] Branch traZODONE 2013-06 Yes 100mg Take [...] 14:24: mouth at [place] tablet 02 bedtime. [facility] Branch traZODONE 2013-06 Yes 100mg Take 100 Uni vers (DESYREL) 2-11 mg by ity of 100 mg 14:24: mouth at [place] tablet 02 bedtime. [facility] Branch traZODONE 2013-06 Yes 100mg Take 100 Uni vers (DESYREL) 2-11 mg by ity of 100 mg 14:24: mouth at [place] tablet 02 bedtime. [facility] Branch traZODONE 2013-06 Yes 100mg Take 100 Uni vers (DESYREL) 2-11 mg by ity of 100 mg 14:24: mouth at [place] tablet 02 bedtime. [facility] Branch traZODONE 2013-06 Yes 100mg Take 100 Uni vers (DESYREL) 2-11 mg by ity of 100 mg 14:24: mouth at [place] tablet 02 bedtime. [facility] Branch traZODONE 2013-06 Yes 100mg Take 100 Uni vers (DESYREL) 2-11 mg by ity of 100 mg 14:24: mouth at [place] tablet 02 bedtime. [facility] Branch BUPROPION 2013-06 Yes [id number] 450mg Take 450 Univers HCL 2-11 mg by ity of (WELLBUTRIN 08:24: mouth [place] ORAL) 03 daily. [facility] Branch BUPROPION 2013-06 Yes [id number] 450mg Take 450 [facility] HCL 2-11 mg by ity of (WELLBUTRIN 08:24: mouth [place] ORAL) 03 daily. [facility] Branch traZODONE 2013-06 Yes 100mg Take 100 Uni vers (DESYREL) 2-11 mg by ity of 100 mg 08:24: mouth at [place] tablet 02 bedtime. Medical Branch traZODONE 2014-1 Yes 100mg Take 100 Uni vers (DESYREL) 2-11 mg by ity of 100 mg 08:24: mouth at [place] tablet 02 bedtime. Medical Branch hydrOXYzine 0 Yes 25mg Take 1 Tab [facility] (ATARAX) 25 6-03 by mouth [facility] [employer] MG tablet 00:00: times of 00 daily as Medicin needed for e Itching. hydrOXYzine Yes 25mg Take 1 Tab [facility] (ATARAX) 25 6-03 by mouth [facility] MG tablet 00:00: times of 00 daily as Medicin needed for e Itching. hydrOXYzine Yes 25mg Take 1 Tab [facility] (ATARAX) 25 6-03 by mouth [facility] MG tablet 00:00: times of 00 daily as Medicin needed for e Itching. hydrOXYzine Yes 25mg Take 1 Tab [facility] (ATARAX) 25 6-03 by mouth [facility] MG tablet 00:00: times of 00 daily as Medicin needed for e Itching. hydrOXYzine Yes 25mg Take 1 Tab [facility] (ATARAX) 25 6-03 by mouth [facility] MG tablet 00:00: times of 00 daily as Medicin needed for e Itching. hydrOXYzine 0 Yes 25mg Take 1 Tab [facility] (ATARAX) 25 6-03 by mouth [facility] MG tablet 00:00: times of 00 daily as Medicin needed for e Itching. hydrOXYzine 0 Yes 25mg Take 1 Tab [facility] (ATARAX) 25 6-03 by mouth [facility] MG tablet 00:00: times of 00 daily as Medicin needed for e Itching. hydrOXYzine 0 Yes 25mg Take 1 Tab [facility] (ATARAX) 25 6-03 by mouth [facility] MG tablet 00:00: times of 00 daily as Medicin needed for e Itching. hydrOXYzine 0 Yes 25mg Take 1 Tab [facility] (ATARAX) 25 6-03 by mouth [facility] MG tablet 00:00: times of 00 daily as Medicin needed for e Itching. hydrOXYzine 2013-0 Yes 25mg Take 1 Tab [facility] (ATARAX) 25 6-03 by mouth [facility] MG tablet 00:00: times of 00 daily as Medicin needed for e Itching. albuterol Yes [id number] 1{puff} Inhale 1-2 [facility] HFA 3-02 6 Puffs [facility] (PROVENTIL 00:00: mouth of HFA, 00 every 6 Medicin VENTOLIN hours as e HFA) 108 needed for (90 BASE) Wheezing. MCG/ACT inhaler albuterol Yes [id number] 1{puff} Inhale 1-2 [facility] HFA 3-02 6 Puffs [employer] (PROVENTIL 00:00: mouth of HFA, 00 every 6 Medicin VENTOLIN hours as e HFA) 108 needed for (90 BASE) Wheezing. MCG/ACT inhaler albuterol Yes [id number] 1{puff} Inhale 1-2 [facility] HFA 3-02 6 Puffs [employer] (PROVENTIL 00:00: mouth of HFA, 00 every 6 Medicin VENTOLIN hours as e HFA) 108 needed for (90 BASE) Wheezing. MCG/ACT inhaler albuterol Yes [id number] 1{puff} Inhale 1-2 [facility] HFA 3-02 6 [facility]uffs [employer] (PROVENTIL 00:00: mouth of HFA, 00 every 6 Medicin VENTOLIN hours as e HFA) 108 needed for (90 BASE) Wheezing. MCG/ACT inhaler albuterol Yes [id number] 1{puff} Inhale 1-2 [facility] HFA 3-02 6 Puffs [employer] (PROVENTIL 00:00: mouth of HFA, 00 every 6 Medicin VENTOLIN hours as e HFA) 108 needed for (90 BASE) Wheezing. MCG/ACT inhaler Immunizations Ordered Filled Date Status Comments Source Immunization Name Immunization Name Pneumococcal 2022-04-05 Completed [facility] 20-Valent Conjugate 00:00:00 of Me dicine Vaccine Pneumococcal 2022-04-05 Completed [facility] ge 20-Valent Conjugate 00:00:00 of Me dicine Vaccine Pneumococcal 2022-04-05 Completed [facility] ge 20-Valent Conjugate 00:00:00 of Me dicine Vaccine Pneumococcal 2022-04-05 Completed [facility] Col[facility] ge 20-Valent Conjugate 00:00:00 of Me dicine Vaccine HPV 9-valent 2022-01-16 Completed [facility] 00:00:00 of Medicine HPV 9-valent 2022-01-16 Completed [facility] Colle ge 00:00:00 of Medicine HPV 9-valent 2022-01-16 Completed [facility] 00:00:00 of Medicine HPV 9-valent 2022-01-16 Completed [facility] 00:00:00 of Medicine HPV 9-valent 2022-01-16 Completed [facility] 00:00:00 of Medicine HPV 9-valent 2022-01-16 Completed [facility] 00:00:00 of Medicine HPV 9-valent 2022-01-16 Completed [facility] Colle ge 00:00:00 of Medicine HPV 9-valent 2022-01-16 Completed [facility] Colle ge 00:00:00 of Medicine Moderna .25 2021-09-08 Completed [facility] BOOSTER SARS-CoV-2 00:00:00 of Med icine Vaccination Moderna .25 2021-09-08 Completed [facility] BOOSTER SARS-CoV-2 00:00:00 of Med icine Vaccination Moderna .25 2021-09-08 Completed [facility] ege BOOSTER SARS-CoV-2 00:00:00 of Med icine Vaccination Moderna .25 2021-09-08 Completed [facility] BOOSTER SARS-CoV-2 00:00:00 of Med icine Vaccination Moderna .25 2021-09-08 Completed [facility] BOOSTER SARS-CoV-2 00:00:00 of Med icine Vaccination Moderna .25 2021-09-08 Completed [facility] BOOSTER SARS-CoV-2 00:00:00 of Med icine Vaccination Moderna .25 2021-09-08 Completed [facility]ge BOOSTER SARS-CoV-2 00:00:00 of Med icine Vaccination Moderna .25 2021-09-08 Completed [facility] BOOSTER SARS-CoV-2 00:00:00 of Med icine Vaccination Moderna .25 2021-09-08 Completed [facility] BOOSTER SARS-CoV-2 00:00:00 of Med icine Vaccination Moderna .25 2021-09-08 Completed [facility] BOOSTER SARS-CoV-2 00:00:00 of Med icine Vaccination Moderna .25 2021-09-08 Completed [facility] BOOSTER SARS-CoV-2 00:00:00 of Med icine Vaccination Moderna .25 2021-09-08 Completed [facility] BOOSTER SARS-CoV-2 00:00:00 of Med icine Vaccination Moderna .25 2021-09-08 Completed [facility] BOOSTER SARS-CoV-2 00:00:00 of Med icine Vaccination Moderna .25 2021-09-08 Completed [facility] BOOSTER SARS-CoV-2 00:00:00 of Med icine Vaccination Influenza Quad-PF 2021-05-03 Completed [facility] 00:00:00 of Medicine Moderna .25 2021-05-03 Completed [facility]o ege BOOSTER SARS-CoV-2 00:00:00 of Med icine Vaccination Influenza Quad-PF 2021-05-03 Completed [facility] 00:00:00 of Medicine Moderna .25 2021-05-03 Completed [facility] ege BOOSTER SARS-CoV-2 00:00:00 of Med icine Vaccination Influenza Quad-PF 2021-05-03 Completed [facility] 00:00:00 of Medicine Moderna .25 2021-05-03 Completed [facility]ge BOOSTER SARS-CoV-2 00:00:00 of Med icine Vaccination Influenza Quad-PF 2021-05-03 Completed [facility] 00:00:00 of Medicine Moderna .25 2021-05-03 Completed [facility]ge BOOSTER SARS-CoV-2 00:00:00 of Med icine Vaccination Influenza Quad-PF 2021-05-03 Completed [facility] 00:00:00 of Medicine Moderna .25 2021-05-03 Completed [facility] ege BOOSTER SARS-CoV-2 00:00:00 of Med icine Vaccination Influenza Quad-PF 2021-05-03 Completed [facility] 00:00:00 of Medicine Moderna .25 2021-05-03 Completed [facility]ge BOOSTER SARS-CoV-2 00:00:00 of Med icine Vaccination Influenza Quad-PF 2021-05-03 Completed [facility] 00:00:00 of Medicine Moderna .25 2021-05-03 Completed [facility] ege BOOSTER SARS-CoV-2 00:00:00 of Med icine Vaccination Influenza Quad-PF 2021-05-03 Completed [facility] 00:00:00 of Medicine Moderna .25 2021-05-03 Completed [facility] ege BOOSTER SARS-CoV-2 00:00:00 of Med icine Vaccination Influenza Quad-PF 2021-05-03 Completed [facility] 00:00:00 of Medicine Moderna .25 2021-05-03 Completed [facility]ge BOOSTER SARS-CoV-2 00:00:00 of Med icine Vaccination Influenza Quad-PF 2021-05-03 Completed [facility] 00:00:00 of Medicine Moderna .25 2021-05-03 Completed [facility] ege Booster Sars-COV-2 00:00:00 of Med icine Vaccination Influenza Quad-PF 2021-05-03 Completed [facility] 00:00:00 of Medicine Moderna .25 2021-05-03 Completed [facility] ege BOOSTER SARS-CoV-2 00:00:00 of Med icine Vaccination Influenza Quad-PF 2021-05-03 Completed [facility] 00:00:00 of Medicine Moderna .25 2021-05-03 Completed [facility] BOOSTER SARS-CoV-2 00:00:00 of Med icine Vaccination Influenza Quad-PF 2021-05-03 Completed [facility] 00:00:00 of Medicine Moderna .25 2021-05-03 Completed [facility] ege BOOSTER SARS-CoV-2 00:00:00 of Med icine Vaccination Influenza Quad-PF 2021-05-03 Completed [facility] 00:00:00 of Medicine Moderna .25 2021-05-03 Completed [facility]o ege BOOSTER SARS-CoV-2 00:00:00 of Med icine Vaccination Influenza Quad-PF 2021-05-03 Completed [facility] 00:00:00 of Medicine Moderna .25 2021-05-03 Completed [facility] BOOSTER SARS-CoV-2 00:00:00 of Med icine Vaccination Influenza Quad-PF 2021-05-03 Completed [facility] 00:00:00 of Medicine Moderna .25 2021-05-03 Completed [facility] BOOSTER SARS-CoV-2 00:00:00 of Med icine Vaccination Influenza Quad-PF 2021-05-03 Completed [facility] 00:00:00 of Medicine Moderna .25mL 2021-05-03 Completed [facility] BOOSTER SARS-CoV-2 00:00:00 of Med icine Vaccination Moderna SARS-CoV-2 2020-08-17 Completed [facility] Vaccination 00:00:00 of Medicine Moderna SARS-CoV-2 2020-08-17 Completed [facility] Vaccination 00:00:00 of Medicine Moderna .5mL 2020-08-17 Completed [facility] Col[facility] ge SARS-CoV-2 00:00:00 of Medicine Vaccination Moderna .5mL 2020-08-17 Completed [facility] ge SARS-CoV-2 00:00:00 of Medicine Vaccination Moderna .5mL 2020-08-17 Completed [facility] ge SARS-CoV-2 00:00:00 of Medicine Vaccination Moderna .5mL 2020-08-17 Completed [facility] ge SARS-CoV-2 00:00:00 of Medicine Vaccination Moderna .5mL 2020-08-17 Completed [facility] ge SARS-CoV-2 00:00:00 of Medicine Vaccination Moderna .5mL 2020-08-17 Completed [facility] ge SARS-CoV-2 00:00:00 of Medicine Vaccination Moderna .5mL 2020-08-17 Completed [facility] ge SARS-CoV-2 00:00:00 of Medicine Vaccination Moderna SARS-CoV-2 2020-08-17 Completed [facility] Vaccination 00:00:00 of Medicine Moderna SARS-CoV-2 2020-08-17 Completed [facility] Vaccination 00:00:00 of Medicine Moderna SARS-CoV-2 2020-08-17 Completed [facility] Vaccination 00:00:00 of Medicine Moderna SARS-CoV-2 2020-08-17 Completed [facility] Vaccination 00:00:00 of Medicine Moderna SARS-CoV-2 2020-08-17 Completed [facility] Vaccination 00:00:00 of Medicine Moderna SARS-CoV-2 2020-08-17 Completed [facility] Vaccination 00:00:00 of Medicine Moderna SARS-CoV-2 2020-08-17 Completed [facility] Vaccination 00:00:00 of Medicine Moderna SARS-CoV-2 2020-08-17 Completed [facility] Vaccination 00:00:00 of Medicine Moderna SARS-CoV-2 2020-08-17 Completed [facility] Vaccination 00:00:00 of Medicine Moderna SARS-CoV-2 2020-08-17 Completed [facility] Vaccination 00:00:00 of Medicine Moderna SARS-CoV-2 2020-08-17 Completed [facility] Vaccination 00:00:00 of Medicine Moderna SARS-CoV-2 2020-08-17 Completed [facility] Vaccination 00:00:00 of Medicine Moderna SARS-CoV-2 2020-07-16 Completed [facility] Vaccination 00:00:00 of Medicine Moderna SARS-CoV-2 2020-07-16 Completed [facility] Vaccination 00:00:00 of Medicine Moderna .5mL 2020-07-16 Completed [facility] SARS-CoV-2 00:00:00 of Medicine Vaccination Moderna .5mL 2020-07-16 Completed [facility] Colle ge SARS-CoV-2 00:00:00 of Medicine Vaccination Moderna .5mL 2020-07-16 Completed [facility] Colle ge SARS-CoV-2 00:00:00 of Medicine Vaccination Moderna .5mL 2020-07-16 Completed [facility] Colle ge SARS-CoV-2 00:00:00 of Medicine Vaccination Moderna .5mL 2020-07-16 Completed [facility] SARS-CoV-2 00:00:00 of Medicine Vaccination Moderna .5mL 2020-07-16 Completed [facility] ge SARS-CoV-2 00:00:00 of Medicine Vaccination Moderna .5mL 2020-07-16 Completed [facility] Colle ge SARS-CoV-2 00:00:00 of Medicine Vaccination Moderna SARS-CoV-2 2020-07-16 Completed [facility] Vaccination 00:00:00 of Medicine Moderna SARS-CoV-2 2020-07-16 Completed [facility] Vaccination 00:00:00 of Medicine Moderna SARS-CoV-2 2020-07-16 Completed [facility] Vaccination 00:00:00 of Medicine Moderna SARS-CoV-2 2020-07-16 Completed [facility] Vaccination 00:00:00 of Medicine Moderna SARS-CoV-2 2020-07-16 Completed [facility] Vaccination 00:00:00 of Medicine Moderna SARS-CoV-2 2020-07-16 Completed [facility] Vaccination 00:00:00 of Medicine Moderna SARS-CoV-2 2020-07-16 Completed [facility] Vaccination 00:00:00 of Medicine Moderna SARS-CoV-2 2020-07-16 Completed [facility] Vaccination 00:00:00 of Medicine Moderna SARS-CoV-2 2020-07-16 Completed [facility] Vaccination 00:00:00 of Medicine Moderna SARS-CoV-2 2020-07-16 Completed [facility] Vaccination 00:00:00 of Medicine Moderna SARS-CoV-2 2020-07-16 Completed [facility] Vaccination 00:00:00 of Medicine Moderna SARS-CoV-2 2020-07-16 Completed [facility] Vaccination 00:00:00 of Medicine Influenza Quad-PF 2020-05-12 Completed [facility] 00:00:00 of Medicine Influenza Quad-PF 2020-05-12 Completed [facility] 00:00:00 of Medicine Influenza Quad-PF 2020-05-12 Completed [facility] 00:00:00 of Medicine Influenza Quad-PF 2020-05-12 Completed [facility] 00:00:00 of Medicine Influenza Quad-PF 2020-05-12 Completed [facility] 00:00:00 of Medicine Influenza Quad-PF 2020-05-12 Completed [facility] 00:00:00 of Medicine Influenza Quad-PF 2020-05-12 Completed [facility] 00:00:00 of Medicine Influenza Quad-PF 2020-05-12 Completed [facility] 00:00:00 of Medicine Influenza Quad-PF 2020-05-12 Completed [facility] 00:00:00 of Medicine Influenza Quad-PF 2020-05-12 Completed [facility] 00:00:00 of Medicine Influenza Quad-PF 2020-05-12 Completed [facility] 00:00:00 of Medicine Influenza Quad-PF 2020-05-12 Completed [facility] 00:00:00 of Medicine Influenza Quad-PF 2020-05-12 Completed [facility] 00:00:00 of Medicine Influenza Quad-PF 2020-05-12 Completed [facility] 00:00:00 of Medicine Influenza Quad-PF 2020-05-12 Completed [facility] 00:00:00 of Medicine Influenza Quad-PF 2020-05-12 Completed [facility] 00:00:00 of Medicine Influenza Quad-PF 2020-05-12 Completed [facility] 00:00:00 of Medicine Influenza Quad-PF 2020-05-12 Completed [facility] 00:00:00 of Medicine Influenza Quad-PF 2020-05-12 Completed [facility] 00:00:00 of Medicine Influenza Quad-PF 2020-05-12 Completed [facility] 00:00:00 of Medicine Influenza Quad-PF 2020-05-12 Completed [facility] 00:00:00 of Medicine Influenza Quad-PF 2020-05-12 Completed [facility] 00:00:00 of Medicine Influenza Quad-PF 2020-05-12 Completed [facility] 00:00:00 of Medicine Influenza Quad-PF 2020-05-12 Completed [facility] 00:00:00 of Medicine FLUZONE QUAD PF 2016-04-17 Completed [facility] 00:00:00 Hospital FLUZONE QUAD PF 2016-04-17 Completed [facility] 00:00:00 Hospital FLUZONE QUAD PF 2016-04-17 Completed [facility] 00:00:00 Hospital Influenza Quad-PF 2016-04-17 Completed [facility] 00:00:00 of Medicine Influenza Quad-PF 2016-04-17 Completed [facility] 00:00:00 of Medicine Influenza Quad-PF 2016-04-17 Completed [facility] 00:00:00 of Medicine Influenza Quad-PF 2016-04-17 Completed [facility] 00:00:00 of Medicine Influenza Quad-PF 2016-04-17 Completed [facility] 00:00:00 of Medicine Influenza Quad-PF 2016-04-17 Completed [facility] 00:00:00 of Medicine Influenza Quad-PF 2016-04-17 Completed [facility] 00:00:00 of Medicine Influenza Quad-PF 2016-04-17 Completed [facility] 00:00:00 of Medicine Influenza Quad-PF 2016-04-17 Completed [facility] 00:00:00 of Medicine Influenza Quad-PF 2016-04-17 Completed [facility] 00:00:00 of Medicine Influenza Quad-PF 2016-04-17 Completed [facility] 00:00:00 of Medicine Influenza Quad-PF 2016-04-17 Completed [facility] 00:00:00 of Medicine Influenza Quad-PF 2016-04-17 Completed [facility] 00:00:00 of Medicine Influenza Quad-PF 2016-04-17 Completed [facility] 00:00:00 of Medicine Influenza Quad-PF 2016-04-17 Completed [facility] [employer] 00:00:00 of Medicine Influenza Quad-PF 2016-04-17 Completed [facility] 00:00:00 of Medicine Influenza Quad-PF 2016-04-17 Completed [facility] 00:00:00 of Medicine Influenza Quad-PF 2016-04-17 Completed [facility] 00:00:00 of Medicine Influenza Quad-PF 2016-04-17 Completed [facility] 00:00:00 of Medicine Influenza Quad-PF 2016-04-17 Completed [facility] 00:00:00 of Medicine Influenza Quad-PF 2016-04-17 Completed [facility] 00:00:00 of Medicine FLUZONE QUAD PF 2016-04-17 Completed [facility] 00:00:00 Hospital Tdap 2015-10-02 Completed [facility] 00:00:00 of Medicine Tdap 2015-10-02 Completed [facility] 00:00:00 of Medicine Tdap 2015-10-02 Completed [facility] 00:00:00 of Medicine Tdap 2015-10-02 Completed [facility] 00:00:00 of Medicine Tdap 2015-10-02 Completed [facility] 00:00:00 of Medicine Tdap 2015-10-02 Completed [facility] 00:00:00 of Medicine Tdap 2015-10-02 Completed [facility] 00:00:00 of Medicine Tdap 2015-10-02 Completed [facility] 00:00:00 of Medicine Tdap 2015-10-02 Completed [facility] 00:00:00 of Medicine Tdap 2015-10-02 Completed [facility] 00:00:00 of Medicine Tdap 2015-10-02 Completed [facility] 00:00:00 of Medicine Tdap 2015-10-02 Completed [facility] 00:00:00 of Medicine Tdap 2015-10-02 Completed [facility] 00:00:00 of Medicine Tdap 2015-10-02 Completed [facility] 00:00:00 of Medicine Tdap 2015-10-02 Completed [facility] 00:00:00 of Medicine Tdap 2015-10-02 Completed [facility] 00:00:00 of Medicine Tdap 2015-10-02 Completed [facility] 00:00:00 of Medicine Tdap 2015-10-02 Completed [facility] 00:00:00 of Medicine Tdap 2015-10-02 [...] 00:00:00 of Medicine Influenza (whole) 2015-04-13 Completed [facility] 00:00:00 of Medicine Pneumococcal 2015-04-13 Completed [facility] 00:00:00 of Medicine Influenza (whole) 2015-04-13 Completed [facility] 00:00:00 of Medicine Pneumococcal 2015-04-13 Completed [facility] 00:00:00 of Medicine Influenza (whole) 2015-04-13 Completed [facility] 00:00:00 of Medicine Pneumococcal 2015-04-13 Completed [facility] 00:00:00 of Medicine Influenza (whole) 2015-04-13 Completed [facility] 00:00:00 of Medicine Pneumococcal 2015-04-13 Completed [facility] 00:00:00 of Medicine Influenza (whole) 2015-04-13 Completed [facility] 00:00:00 of Medicine Pneumococcal 2015-04-13 Completed [facility] 00:00:00 of Medicine Influenza (whole) 2015-04-13 [facility] Pneumococcal 2015-04-13 Completed [facility] 00:00:00 of Medicine Influenza (whole) 2015-04-13 Completed [facility] 00:00:00 of Medicine Pneumococcal 2015-04-13 Completed [facility] 00:00:00 of Medicine Influenza (whole) 2015-04-13 Completed [facility] [employer] 00:00:00 of Medicine Pneumococcal 2015-04-13 Completed [facility] 00:00:00 of Medicine Influenza (whole) 2015-04-13 Completed [facility] [employer] 00:00:00 of Medicine Pneumococcal 2015-04-13 Completed [facility] 00:00:00 of Medicine Influenza (whole) 2015-04-13 Completed [facility] 00:00:00 of Medicine Pneumococcal 2015-04-13 Completed [facility] 00:00:00 of Medicine Influenza (whole) 2015-04-13 Completed [facility] [employer] 00:00:00 of Medicine Pneumococcal 2015-04-13 Completed [facility] 00:00:00 of Medicine Influenza (whole) 2015-04-13 Completed [facility] 00:00:00 of Medicine Pneumococcal 2015-04-13 Completed [facility] 00:00:00 of Medicine Influenza (whole) 2015-04-13 Completed [facility] [employer] 00:00:00 of Medicine Pneumococcal 2015-04-13 Completed [facility] 00:00:00 of Medicine Influenza (whole) 2015-04-13 Completed [facility] [employer] 00:00:00 of Medicine Pneumococcal 2015-04-13 Completed [facility] 00:00:00 of Medicine Influenza (whole) 2015-04-13 Completed [facility] [place] 00:00:00 of Medicine Pneumococcal 2015-04-13 Completed [facility] 00:00:00 of Medicine Influenza (whole) 2015-04-13 Completed [facility] 00:00:00 of Medicine Pneumococcal 2015-04-13 Completed [facility] 00:00:00 of Medicine Influenza (whole) 2015-04-13 Completed [facility] [place] 00:00:00 of Medicine Pneumococcal 2015-04-13 Completed [facility] 00:00:00 of Medicine Influenza (whole) 2015-04-13 Completed [facility] [place] 00:00:00 of Medicine Pneumococcal 2015-04-13 Completed [facility] 00:00:00 of Medicine Influenza (whole) 2015-04-13 [facility] Pneumococcal 2015-04-13 Completed [facility] 00:00:00 of Medicine Influenza (whole) 2015-04-13 Completed [facility] [place] 00:00:00 of Medicine Pneumococcal 2015-04-13 Completed [facility] 00:00:00 of Medicine Influenza (whole) 2015-04-13 [facility] Pneumococcal 2015-04-13 Completed [facility] 00:00:00 of Medicine Influenza (whole) 2015-04-13 Completed [facility] [employer] 00:00:00 of Medicine Pneumococcal 2015-04-13 Completed [facility] 00:00:00 of Medicine Influenza (whole) 2015-04-13 [facility] Pneumococcal 2015-04-13 Completed [facility] 00:00:00 of Medicine Influenza (whole) 2015-04-13 Completed [facility] 00:00:00 of Medicine Tdap 2015-01-14 Completed [facility] 00:00:00 of Medicine Tdap 2015-01-14 Completed [facility] 00:00:00 of Medicine Tdap 2015-01-14 Completed [facility] 00:00:00 of Medicine Tdap 2015-01-14 Completed [facility] 00:00:00 of Medicine Tdap 2015-01-14 Completed [facility] 00:00:00 of Medicine Tdap 2015-01-14 Completed [facility] 00:00:00 of Medicine Tdap 2015-01-14 Completed [facility] 00:00:00 of Medicine Tdap 2015-01-14 Completed [facility] 00:00:00 of Medicine Tdap 2015-01-14 Completed [facility] 00:00:00 of Medicine Tdap 2015-01-14 Completed [facility] 00:00:00 of Medicine Tdap 2015-01-14 Completed [facility] 00:00:00 of Medicine Tdap 2015-01-14 Completed [facility] 00:00:00 of Medicine Tdap 2015-01-14 Completed [facility] 00:00:00 of Medicine Tdap 2015-01-14 Completed [facility] 00:00:00 of Medicine Tdap 2015-01-14 Completed [facility] 00:00:00 of Medicine Tdap 2015-01-14 Completed [facility] 00:00:00 of Medicine Tdap 2015-01-14 Completed [facility] 00:00:00 of Medicine Tdap 2015-01-14 Completed [facility] 00:00:00 of Medicine Tdap 2015-01-14 Completed [facility] 00:00:00 of Medicine Tdap 2015-01-14 Completed [facility] 00:00:00 of Medicine Tdap 2015-01-14 Completed [facility] 00:00:00 of Medicine Tdap 2015-01-14 Completed [facility] 00:00:00 of Medicine Tdap 2015-01-14 Completed [facility] 00:00:00 of Medicine Tdap 2015-01-14 Completed [facility] 00:00:00 of Medicine Hep A/Hep B 2012-07-17 Completed [facility] 00:00:00 of Medicine Hep A/Hep B 2012-07-17 Completed [facility] 00:00:00 of Medicine Hep A/Hep B 2012-07-17 Completed [facility] 00:00:00 of Medicine Hep A/Hep B 2012-07-17 Completed [facility] 00:00:00 of Medicine Hep A/Hep B 2012-07-17 Completed [facility] 00:00:00 of Medicine Hep A/Hep B 2012-07-17 Completed [facility] 00:00:00 of Medicine Hep A/Hep B 2012-07-17 Completed [facility] 00:00:00 of Medicine Hep A/Hep B 2012-07-17 Completed [facility] 00:00:00 of Medicine Hep A/Hep B 2012-07-17 Completed [facility] 00:00:00 of Medicine Hep A/Hep B 2012-07-17 Completed [facility] 00:00:00 of Medicine Hep A/Hep B 2012-07-17 Completed [facility] 00:00:00 of Medicine Hep A/Hep B 2012-07-17 Completed [facility] 00:00:00 of Medicine Hep A/Hep B 2012-07-17 Completed [facility] 00:00:00 of Medicine Hep A/Hep B 2012-07-17 Completed [facility] 00:00:00 of Medicine Hep A/Hep B 2012-07-17 Completed [facility] 00:00:00 of Medicine Hep A/Hep B 2012-07-17 Completed [facility] 00:00:00 of Medicine Hep A/Hep B 2012-07-17 Completed [facility] 00:00:00 of Medicine Hep A/Hep B 2012-07-17 Completed [facility] 00:00:00 of Medicine Hep A/Hep B 2012-07-17 Completed [facility] 00:00:00 of Medicine Hep A/Hep B 2012-07-17 Completed [facility] 00:00:00 of Medicine Hep A/Hep B 2012-07-17 Completed [facility] 00:00:00 of Medicine Hep A/Hep B 2012-07-17 Completed [facility] 00:00:00 of Medicine Hep A/Hep B 2012-07-17 Completed [facility] 00:00:00 of Medicine Hep A/Hep B 2012-07-17 Completed [facility] 00:00:00 of Medicine Hep A/Hep B 2012-02-15 Completed [facility] [employer] [facility] 00:00:00 of Medicine Hep A/Hep B 2012-02-15 Completed [facility] 00:00:00 of Medicine Hep A/Hep B 2012-02-15 Completed [facility] 00:00:00 of Medicine Hep A/Hep B 2012-02-15 Completed [facility] 00:00:00 of Medicine Hep A/Hep B 2012-02-15 Completed [facility] 00:00:00 of Medicine Hep A/Hep B 2012-02-15 Completed [facility] 00:00:00 of Medicine Hep A/Hep B 2012-02-15 Completed [facility] 00:00:00 of Medicine Hep A/Hep B 2012-02-15 Completed [facility] 00:00:00 of Medicine Hep A/Hep B 2012-02-15 Completed [facility] 00:00:00 of Medicine Hep A/Hep B 2012-02-15 Completed [facility] 00:00:00 of Medicine Hep A/Hep B 2012-02-15 Completed [facility] 00:00:00 of Medicine Hep A/Hep B 2012-02-15 Completed [facility] 00:00:00 of Medicine Hep A/Hep B 2012-02-15 Completed [facility] 00:00:00 of Medicine Hep A/Hep B 2012-02-15 Completed [facility] 00:00:00 of Medicine Hep A/Hep B 2012-02-15 Completed [facility] 00:00:00 of Medicine Hep A/Hep B 2012-02-15 Completed [facility] 00:00:00 of Medicine Hep A/Hep B 2012-02-15 Completed [facility] 00:00:00 of Medicine Hep A/Hep B 2012-02-15 Completed [facility] 00:00:00 of Medicine Hep A/Hep B 2012-02-15 Completed [facility] 00:00:00 of Medicine Hep A/Hep B 2012-02-15 Completed [facility] 00:00:00 of Medicine Hep A/Hep B 2012-02-15 Completed [facility] 00:00:00 of Medicine Hep A/Hep B 2012-02-15 Completed [facility] 00:00:00 of Medicine Hep A/Hep B 2012-02-15 Completed [facility] 00:00:00 of Medicine Hep A/Hep B 2012-02-15 Completed [facility] 00:00:00 of Medicine Hep A[facility] 2011-12-31 [facility] 2011-12-31 Completed [facility] 00:00:00 of Medicine Hep A/Hep [facility] 2011-12-31 [facility] 2011-12-31 Completed [facility] 00:00:00 of Medicine Hep A/Hep B 2011-12-31 Completed [facility] 00:00:00 of Medicine Tdap 2011-12-31 Completed [facility] 00:00:00 of Medicine Hep A/Hep B 2011-12-31 [facility] T[facility] 2011-12-31 Completed [facility] 00:00:00 of Medicine Hep A/Hep B 2011-12-31 [facility] T[facility] 2011-12-31 Completed [facility] 00:00:00 of Medicine Hep A/Hep B 2011-12-31 Completed [facility] 00:00:00 of Medicine Tdap 2011-12-31 Completed [facility] 00:00:00 of Medicine Hep A/Hep B 2011-12-31 [facility] T[facility] 2011-12-31 Completed [facility] 00:00:00 of Medicine Hep A/Hep B 2011-12-31 [facility] Td[facility] 2011-12-31 Completed [facility] 00:00:00 of Medicine Hep A/Hep B 2011-12-31 Completed [facility] 00:00:00 of Medicine Tdap 2011-12-31 Completed [facility] 00:00:00 of Medicine Hep A/Hep B 2011-12-31 [facility] T[facility] 2011-12-31 Completed [facility] 00:00:00 of Medicine Hep A/Hep B 2011-12-31 [facility] Td[facility] 2011-12-31 Completed [facility] 00:00:00 of Medicine Hep A/Hep B 2011-12-31 Completed [facility] 00:00:00 of Medicine Tdap 2011-12-31 Completed [facility] 00:00:00 of Medicine Hep A/Hep B 2011-12-31 Completed [facility] 00:00:00 of Medicine Tdap 2011-12-31 Completed [facility] 00:00:00 of Medicine Hep A/Hep B 2011-12-31 Completed [facility] 00:00:00 of Medicine Tdap 2011-12-31 Completed [facility] 00:00:00 of Medicine Hep A/Hep B 2011-12-31 Completed [facility] 00:00:00 of Medicine Tdap 2011-12-31 Completed [facility] 00:00:00 of Medicine Hep A/Hep B 2011-12-31 Completed [facility] 00:00:00 of Medicine Tdap 2011-12-31 Completed [facility] 00:00:00 of Medicine Hep A/Hep B 2011-12-31 Completed [facility] 00:00:00 of Medicine Tdap 2011-12-31 Completed [facility] 00:00:00 of Medicine Hep A/Hep B 2011-12-31 Completed [facility] 00:00:00 of Medicine Tdap 2011-12-31 Completed [facility] 00:00:00 of Medicine Hep A/Hep B 2011-12-31 Completed [facility] 00:00:00 of Medicine Tdap 2011-12-31 Completed [facility] 00:00:00 of Medicine Hep A/Hep B 2011-12-31 Completed [facility] 00:00:00 of Medicine Hep A/Hep B 2011-12-31 Completed [facility] 00:00:00 of Medicine Tdap 2011-12-31 Completed [facility] 00:00:00 of Medicine Tdap 2011-12-31 Completed [facility] 00:00:00 of Medicine Hep A/Hep B 2011-12-31 Completed [facility] 00:00:00 of Medicine Tdap 2011-12-31 Completed [facility] 00:00:00 of Medicine Hep A/Hep B 2011-12-31 [facility] T[facility] 2011-12-31 Completed [facility] 00:00:00 of Medicine Hep A/Hep B 2011-12-31 [facility] Td[facility] 2011-12-31 Completed [facility] 00:00:00 of Medicine PPD Test 2011-12-28 Completed [facility] 00:00:00 of Medicine PPD Test 2011-12-28 Completed [facility] 00:00:00 of Medicine PPD Test 2011-12-28 Completed [facility] 00:00:00 of Medicine PPD Test 2011-12-28 Completed [facility] 00:00:00 of Medicine PPD Test 2011-12-28 Completed [facility] 00:00:00 of Medicine PPD Test 2011-12-28 Completed [facility] 00:00:00 of Medicine PPD Test 2011-12-28 Completed [facility] 00:00:00 of Medicine PPD Test 2011-12-28 Completed [facility] 00:00:00 of Medicine PPD Test 2011-12-28 Completed [facility] 00:00:00 of Medicine PPD Test 2011-12-28 Completed [facility] 00:00:00 of Medicine PPD Test 2011-12-28 Completed [facility] 00:00:00 of Medicine PPD Test 2011-12-28 Completed [facility] 00:00:00 of Medicine PPD Test 2011-12-28 Completed [facility] 00:00:00 of Medicine PPD Test 2011-12-28 Completed [facility] 00:00:00 of Medicine PPD Test 2011-12-28 Completed [facility] 00:00:00 of Medicine PPD Test 2011-12-28 Completed [facility] 00:00:00 of Medicine PPD Test 2011-12-28 Completed [facility] 00:00:00 of Medicine PPD Test 2011-12-28 Completed [facility] 00:00:00 of Medicine PPD Test 2011-12-28 Completed [facility] 00:00:00 of Medicine PPD Test 2011-12-28 Completed [facility] 00:00:00 of Medicine PPD Test 2011-12-28 Completed [facility] 00:00:00 of Medicine PPD Test 2011-12-28 Completed [facility] 00:00:00 of Medicine PPD Test 2011-12-28 Completed [facility] 00:00:00 of Medicine PPD Test 2011-12-28 Completed [facility] 00:00:00 of Medicine TD, NOS 2011-10-16 [...] TD, NOS 2011-10-16 Completed [facility] 00[facility]00 [facility] TD, NOS 2011-10-16 Completed [facility] 00:00:00 [facility] TD, NOS 2011-10-16 Completed [facility] 00:00:00 [facility] TD, NOS 2011-10-16 Completed [facility] 00[facility]00:00 [facility] TD, NOS 2011-10-16 Completed [facility] 00:00:00 [facility] TD, NOS 2011-10-16 Completed [facility] 00:00:00 [facility] TD, NOS 2011-10-16 Completed [facility] 00:00:00 [facility] TD, NOS 2011-10-16 Completed [facility] 00:00:00 [facility] TD, NOS 2011-10-16 Completed [facility] 00:00:00 [facility] Td 2011-10-16 Completed [facility] 00:00:00 of Medicine Td 2011-10-16 Completed [employer] 00:00:00 of Medicine Td 2011-10-16 Completed [facility] 00:00:00 of Medicine Td 2011-10-16 Completed [employer] [employer] 00:00:00 of Medicine Td 2011-10-16 Completed [facility] 00:00:00 of Medicine Td 2011-10-16 Completed [facility] 00:00:00 of Medicine Td 2011-10-16 Completed [employer] 00:00:00 of Medicine Td 2011-10-16 Completed [facility] 00:00:00 of Medicine Td 2011-10-16 Completed [employer] 00:00:00 of Medicine Td 2011-10-16 Completed [facility] 00:00:00 of Medicine Td 2011-10-16 Completed [employer] 00:00:00 of Medicine Td 2011-10-16 Completed [facility] 00:00:00 of Medicine Td 2011-10-16 Completed [employer] 00:00:00 of Medicine Td 2011-10-16 Completed [employer] 00:00:00 of Medicine Td 2011-10-16 Completed [employer] 00:00:00 of Medicine Td 2011-10-16 Completed [facility] 00:00:00 of Medicine Td 2011-10-16 Completed [employer] 00:00:00 of Medicine Td 2011-10-16 Completed [employer] 00:00:00 of Medicine Td 2011-10-16 Completed [employer] [employer] 00:00:00 of Medicine Td 2011-10-16 Completed [facility] 00:00:00 of Medicine Td 2011-10-16 Completed [facility] 00:00:00 of Medicine Tdap Unknown Completed [facility] Vital Name Observation Time Observation Value Comments Source HEIGHT 2022-03-08 175.3 cm 13:09:00 WEIGHT 2022-03-08 121.564 kg 13:09:00 HEIGHT 2021-12-13 175.3 cm 14:57:00 WEIGHT 2021-12-13 127.007 kg 14:57:00 HEIGHT 2020-02-10 175.3 cm 00:00:00 WEIGHT 2020-02-10 182.89 kg 00:00:00 Systolic blood 2022-07-19 122 mm[Hg] [facility] pressure 17:53:00 [facility] Diastolic blood 2022-07-19 73 mm[Hg] [place] [facility] pressure 17:53:00 [facility] Heart rate 2022-07-19 69 /min [facility] 17:53:00 [facility] Body temperature 2022-07-19 36.83 Debra [facility] 17:53:00 [facility] Body height 2022-07-19 175.3 cm [facility] 17:53:00 [facility] Body weight 2022-07-19 103.874 kg [facility] 17:53:00 [facility] BMI 2022-07-19 33.82 kg/m2 [facility] 17:53:00 [facility] HEIGHT 2022-07-07 175.3 cm 22:19:51 WEIGHT 2022-07-07 [...] 11:09:00 Body height 2022-06-29 175.3 cm [facility] 15:41:00 [facility] Body weight 2022-06-29 108.274 kg [facility] 15:41:00 [facility] BMI 2022-06-29 35.25 kg/m2 [facility] 15:41:00 [facility] HEIGHT 2022-06-20 175.3 cm 06:24:00 WEIGHT 2022-06-20 [...] temperature 2022-06-15 36.78 Debra [facility] 22:38:00 [facility] Body height 2022-06-15 175.3 cm [facility] 22:38:00 [facility] Body weight 2022-06-15 114.76 kg [facility] 22:38:00 [facility] BMI 2022-06-15 37.36 kg/m2 [facility] 22:38:00 [facility] Systolic blood 2022-06-11 113 mm[Hg] [facility] pressure 19:02:00 [facility] Diastolic blood 2022-06-11 66 mm[Hg] [facility] pressure 19:02:00 [facility] Heart rate 2022-06-11 84 /min [facility] 19:02:00 [facility] Body height 2022-06-11 175.3 cm [facility] 19:02:00 [facility] Body weight 2022-06-11 117.482 kg [facility] 19:02:00 [facility] BMI 2022-06-11 38.25 kg/m2 [facility] 19:02:00 [facility] Oxygen saturation 2022-06-11 98 /min [facility] in Arterial blood 19:02:00 [facility] by Pulse oximetry [place] HEIGHT 2022-05-07 175.3 cm 11:45:00 WEIGHT 2022-05-07 [...] kg 12:17:00 Systolic blood 2022-04-30 122 mm[Hg] [facility] pressure 15:17:00 of Medicine Diastolic blood 2022-04-30 76 mm[Hg] [facility] pressure 15:17:00 of Medicine Heart rate 2022-04-30 76 /min [facility] 15:17:00 of Medicine Body height 2022-04-30 175.3 cm [facility] 15:17:00 of Medicine Body weight 2022-04-30 118.389 kg [facility] 15:17:00 of Medicine BMI 2022-04-30 38.54 kg/m2 [facility] 15:17:00 of Medicine Systolic blood 2022-04-24 122 mm[Hg] [facility] pressure 18:12:00 of Medicine Diastolic blood 2022-04-24 83 mm[Hg] [facility] pressure 18:12:00 of Medicine Heart rate 2022-04-24 73 /min [facility] 18:12:00 of Medicine Body height 2022-04-24 175.3 cm [facility] 18:12:00 of Medicine Body weight 2022-04-24 118.389 kg [facility] 18:12:00 of Medicine BMI 2022-04-24 38.54 kg/m2 [facility] 18:12:00 of Medicine Systolic blood 2022-04-05 131 mm[Hg] [facility] pressure 19:28:00 of Medicine Diastolic blood 2022-04-05 81 mm[Hg] [facility] pressure 19:28:00 of Medicine Heart rate 2022-04-05 65 /min [facility] 19:28:00 of Medicine Body temperature 2022-04-05 36.67 Debra [facility] 19:28:00 of Medicine Respiratory rate 2022-04-05 16 /min [facility] 19:28:00 of Medicine Body height 2022-04-05 175.3 cm [facility] 19:28:00 of Medicine Body weight 2022-04-05 118.389 kg [facility] 19:28:00 of Medicine BMI 2022-04-05 38.54 kg/m2 [facility] 19:28:00 of Medicine Oxygen saturation 2022-04-05 98 /min [facility] in Arterial blood 19:28:00 of Medicin e by Pulse oximetry Systolic blood 2022-04-03 122 mm[Hg] [facility] pressure 18:58:00 [facility] Diastolic blood 2022-04-03 79 mm[Hg] [place] [facility] pressure 18:58:00 [facility] Heart rate 2022-04-03 79 /min [facility] 18:58:00 [facility] Body height 2022-04-03 175.3 cm [facility] 18:58:00 [facility] Body weight 2022-04-03 120.6 kg [facility] 18:58:00 [facility] BMI 2022-04-03 39.26 kg/m2 [facility] 18:58:00 [facility] Oxygen saturation 2022-04-03 96 /min [facility] in Arterial blood 18:58:00 [facility] by Pulse oximetry Branch Body weight 2022-03-30 118.842 kg [facility] 15:54:00 of Medicine BMI 2022-03-30 38.69 kg/m2 [facility] 15:54:00 of Medicine Systolic blood 2022-03-12 134 mm[Hg] [facility] pressure 18:45:00 of Medicine Diastolic blood 2022-03-12 68 mm[Hg] [facility] pressure 18:45:00 of Medicine Body height 2022-03-12 175.3 cm [facility] 18:45:00 of Medicine Body weight 2022-03-12 121.564 kg [facility] 18:45:00 of Medicine BMI 2022-03-12 39.58 kg/m2 [facility] 18:45:00 of Medicine HEIGHT 2022-03-07 175.3 cm 16:23:00 WEIGHT 2022-03-07 121.564 kg 16:23:00 HEIGHT 2022-03-07 175.3 cm 16:23:00 WEIGHT 2022-03-07 121.564 kg 16:23:00 HEIGHT 2022-03-07 175.3 cm 16:23:00 WEIGHT 2022-03-07 121.564 kg 16:23:00 Systolic blood 2022-03-07 145 mm[Hg] [facility] pressure 16:55:00 of Medicine Diastolic blood 2022-03-07 81 mm[Hg] [facility] pressure 16:55:00 of Medicine Heart rate 2022-03-07 89 /min [facility] 16:55:00 of Medicine Body temperature 2022-03-07 36.83 Debra [facility] 16:55:00 of Medicine Body height 2022-03-07 175.3 cm [facility] 16:55:00 of Medicine Body weight 2022-03-07 121.927 kg [facility] 16:55:00 of Medicine BMI 2022-03-07 39.69 kg/m2 [facility] 16:55:00 of Medicine Oxygen saturation 2022-03-07 96 /min [facility] in Arterial blood 16:55:00 of Medicin e by Pulse oximetry Systolic blood 2022-03-06 126 mm[Hg] [employer] pressure 18:59:00 of Medicine Diastolic blood 2022-03-06 80 mm[Hg] [facility] pressure 18:59:00 of Medicine Heart rate 2022-03-06 84 /min [facility] 18:59:00 of Medicine Body temperature 2022-03-06 36.67 Debra [facility] 18:59:00 of Medicine Respiratory rate 2022-03-06 16 /min [facility] 18:59:00 of Medicine Body height 2022-03-06 175.3 cm [facility] 18:59:00 of Medicine Body weight 2022-03-06 122.925 kg [facility] 18:59:00 of Medicine BMI 2022-03-06 40.02 kg/m2 [facility] 18:59:00 of Medicine Oxygen saturation 2022-03-06 98 /min [facility] in Arterial blood 18:59:00 of Medicin e by Pulse oximetry Systolic blood 2022-02-21 126 mm[Hg] [employer] pressure 16:54:00 of Medicine Diastolic blood 2022-02-21 81 mm[Hg] [facility] pressure 16:54:00 of Medicine Heart rate 2022-02-21 90 /min [facility] 16:54:00 of Medicine Body temperature 2022-02-21 37 Debra [facility] 16:54:00 of Medicine Respiratory rate 2022-02-21 18 /min [facility] 16:54:00 of Medicine Body height 2022-02-21 175.3 cm [facility] 16:54:00 of Medicine Body weight 2022-02-21 122.925 kg [facility] 16:54:00 of Medicine BMI 2022-02-21 40.02 kg/m2 [facility] 16:54:00 of Medicine Oxygen saturation 2022-02-21 95 /min [facility] in Arterial blood 16:54:00 of Medicin e by Pulse oximetry Systolic blood 2022-01-24 121 mm[Hg] [facility] pressure 16:11:00 of Medicine Diastolic blood 2022-01-24 74 mm[Hg] [facility] pressure 16:11:00 of Medicine Heart rate 2022-01-24 88 /min [facility] 16:11:00 of Medicine Body temperature 2022-01-24 36.17 Debra [facility] 16:11:00 of Medicine Body height 2022-01-24 175.3 cm [facility] 16:11:00 of Medicine Body weight 2022-01-24 125.646 kg [facility] 16:11:00 of Medicine BMI 2022-01-24 40.91 kg/m2 [facility] 16:11:00 of Medicine Body height 2022-01-23 175.3 cm [facility] 14:36:00 of Medicine Body weight 2022-01-23 125.646 kg [facility] 14:36:00 of Medicine BMI 2022-01-23 40.91 kg/m2 [facility] 14:36:00 of Medicine Systolic blood 2022-01-22 110 mm[Hg] [facility] pressure 21:16:00 of Medicine Diastolic blood 2022-01-22 60 mm[Hg] [facility] pressure 21:16:00 of Medicine Heart rate 2022-01-22 85 /min [facility] 21:16:00 of Medicine Respiratory rate 2022-01-22 22 /min [facility] 21:16:00 of Medicine Systolic blood 2021-11-23 120 mm[Hg] [facility] pressure 18:06:00 of Medicine Diastolic blood 2021-11-23 81 mm[Hg] [facility] pressure 18:06:00 of Medicine Heart rate 2021-11-23 95 /min [facility] 18:06:00 of Medicine Body temperature 2021-11-23 37 Debra [facility] 18:06:00 of Medicine Respiratory rate 2021-11-23 16 /min [facility] 18:06:00 of Medicine Body height 2021-11-23 175.3 cm [facility] 18:06:00 of Medicine Body weight 2021-11-23 128.822 kg [facility] 18:06:00 of Medicine BMI 2021-11-23 41.94 kg/m2 [facility] 18:06:00 of Medicine Oxygen saturation 2021-11-23 96 /min [facility] in Arterial blood 18:06:00 of Medicin e by Pulse oximetry HEIGHT 2021-10-03 175.3 cm 18:19:00 WEIGHT 2021-10-03 126.1 kg 18:19:00 HEIGHT 2021-10-03 175.3 cm 18:19:00 WEIGHT 2021-10-03 126.1 kg 18:19:00 HEIGHT 2021-10-03 175.3 cm 18:19:00 WEIGHT 2021-10-03 126.1 kg 18:19:00 Systolic blood 2021-09-08 137 mm[Hg] [employer] pressure 18:41:00 of Medicine Diastolic blood 2021-09-08 87 mm[Hg] [facility] pressure 18:41:00 of Medicine Heart rate 2021-09-08 73 /min [facility] 18:41:00 of Medicine Body temperature 2021-09-08 36.28 Debra [facility] 18:41:00 of Medicine Respiratory rate 2021-09-08 16 /min [facility] 18:41:00 of Medicine Body height 2021-09-08 175.3 cm [facility] 18:41:00 of Medicine Body weight 2021-09-08 129.003 kg [facility] 18:41:00 of Medicine BMI 2021-09-08 42.00 kg/m2 [facility] 18:41:00 of Medicine Oxygen saturation 2021-09-08 100 /min [facility] in Arterial blood 18:41:00 of Medicin e by Pulse oximetry Systolic blood 2021-06-27 113 mm[Hg] [facility] pressure 17:35:00 of Medicine Diastolic blood 2021-06-27 77 mm[Hg] [facility] pressure 17:35:00 of Medicine Heart rate 2021-06-27 89 /min [facility] 17:35:00 of Medicine Body temperature 2021-06-27 37.28 Debra [facility] 17:35:00 of Medicine Body height 2021-06-27 175.3 cm [facility] 17:35:00 of Medicine Body weight 2021-06-27 121.564 kg [facility] 17:35:00 of Medicine BMI 2021-06-27 39.58 kg/m2 [facility] 17:35:00 of Medicine Systolic blood 2021-05-03 104 mm[Hg] [facility] pressure 17:27:00 of Medicine Diastolic blood 2021-05-03 66 mm[Hg] [facility] pressure 17:27:00 of Medicine Heart rate 2021-05-03 80 /min [facility] 17:27:00 of Medicine Body temperature 2021-05-03 36.61 Debra [facility] 17:27:00 of Medicine Respiratory rate 2021-05-03 16 /min [facility] 17:27:00 of Medicine Body height 2021-05-03 175.3 cm [facility] 17:27:00 of Medicine Body weight 2021-05-03 121.791 kg [facility] 17:27:00 of Medicine BMI 2021-05-03 39.65 kg/m2 [facility] 17:27:00 of Medicine Oxygen saturation 2021-05-03 98 /min [facility] in Arterial blood 17:27:00 of Medicin e by Pulse oximetry Systolic blood 2021-03-03 112 mm[Hg] [facility] pressure 18:53:00 of Medicine Diastolic blood 2021-03-03 77 mm[Hg] [facility] [employer] [employer] pressure 18:53:00 of Medicine Heart rate 2021-03-03 91 /min [facility] 18:53:00 of Medicine Body temperature 2021-03-03 36.67 Debra [facility] 18:53:00 of Medicine Body height 2021-03-03 170.2 cm [facility] 18:53:00 of Medicine Body weight 2021-03-03 130.182 kg [facility] 18:53:00 of Medicine BMI 2021-03-03 44.95 kg/m2 [facility] 18:53:00 of Medicine HEIGHT 2021-01-03 175.3 cm 13:54:00 WEIGHT 2021-01-03 126.2 kg 13:54:00 Systolic blood 2020-12-02 105 mm[Hg] [employer] pressure 16:35:00 of Medicine Diastolic blood 2020-12-02 72 mm[Hg] [facility] [employer] [employer] [facility] 16:35:00 of Medicine Heart rate 2020-12-02 71 /min [facility] 16:35:00 of Medicine Respiratory rate 2020-12-02 16 /min [facility] 16:35:00 of Medicine Body height 2020-12-02 170.2 cm [facility] 16:35:00 of Medicine Body weight 2020-12-02 130.182 kg [facility] 16:35:00 of Medicine BMI 2020-12-02 44.95 kg/m2 [facility] 16:35:00 of Medicine Oxygen saturation 2020-12-02 97 /min [facility] in Arterial blood 16:35:00 of Medicin e by Pulse oximetry Systolic blood 2020-06-14 117 mm[Hg] [employer] pressure 20:25:00 of Medicine Diastolic blood 2020-06-14 71 mm[Hg] [facility] pressure 20:25:00 of Medicine Heart rate 2020-06-14 93 /min [facility] 20:25:00 of Medicine Body temperature 2020-06-14 37 Debra [facility] 20:25:00 of Medicine Body height 2020-06-14 170.2 cm [facility] 20:25:00 of Medicine Body weight 2020-06-14 149.687 kg [facility] 20:25:00 of Medicine BMI 2020-06-14 51.69 kg/m2 [facility] 20:25:00 of Medicine Systolic blood 2020-06-14 117 mm[Hg] [facility] pressure 20:25:00 of Medicine Diastolic blood 2020-06-14 71 mm[Hg] [facility] pressure 20:25:00 of Medicine Heart rate 2020-06-14 93 /min [facility] 20:25:00 of Medicine Body temperature 2020-06-14 37 Debra [facility] 20:25:00 of Medicine Body height 2020-06-14 170.2 cm [facility] 20:25:00 of Medicine Body weight 2020-06-14 149.687 kg [facility] 20:25:00 of Medicine BMI 2020-06-14 51.69 kg/m2 [facility] 20:25:00 of Medicine Systolic blood 2020-05-12 129 mm[Hg] [facility] pressure 18:10:00 of Medicine Diastolic blood 2020-05-12 83 mm[Hg] [facility] pressure 18:10:00 of Medicine Heart rate 2020-05-12 92 /min [facility] 18:10:00 of Medicine Body temperature 2020-05-12 36.5 Debra [facility] 18:06:00 of Medicine Systolic blood 2020-05-12 129 mm[Hg] [employer] pressure 18:10:00 of Medicine Diastolic blood 2020-05-12 83 mm[Hg] [facility] pressure 18:10:00 of Medicine Heart rate 2020-05-12 92 /min [facility] 18:10:00 of Medicine Body temperature 2020-05-12 36.5 Debra [facility] 18:06:00 of Medicine Systolic blood 2020-05-12 135 mm[Hg] [facility] pressure 19:43:00 of Medicine Diastolic blood 2020-05-12 88 mm[Hg] [facility] pressure 19:43:00 of Medicine Heart rate 2020-05-12 87 /min [facility] 19:43:00 of Medicine Body temperature 2020-05-12 36.5 Debra [facility] 19:43:00 of Medicine Respiratory rate 2020-05-12 16 /min [facility] 19:43:00 of Medicine Body height 2020-05-12 170.2 cm [facility] 19:43:00 of Medicine Body weight 2020-05-12 149.687 kg [facility] 19:43:00 of Medicine BMI 2020-05-12 51.69 kg/m2 [facility] 19:43:00 of Medicine Oxygen saturation 2020-05-12 95 /min [facility] in Arterial blood 19:43:00 of Medicin e by Pulse oximetry Systolic blood 2020-05-12 135 mm[Hg] [facility] pressure 19:43:00 of Medicine Diastolic blood 2020-05-12 88 mm[Hg] [facility] pressure 19:43:00 of Medicine Heart rate 2020-05-12 87 /min [facility] 19:43:00 of Medicine Body temperature 2020-05-12 36.5 Debra [facility] 19:43:00 of Medicine Respiratory rate 2020-05-12 16 /min [facility] 19:43:00 of Medicine Body height 2020-05-12 170.2 cm [facility] 19:43:00 of Medicine Body weight 2020-05-12 149.687 kg [facility] 19:43:00 of Medicine BMI 2020-05-12 51.69 kg/m2 [facility] 19:43:00 of Medicine Oxygen saturation 2020-05-12 95 /min [facility] in Arterial blood 19:43:00 of Medicin e by Pulse oximetry HEIGHT 2020-02-10 175.3 cm 00:00:00 WEIGHT 2020-02-10 182.89 kg 00:00:00 Systolic blood 2019-12-22 150 mm[Hg] [facility] pressure 07:15:00 [facility] Diastolic blood 2019-12-22 87 mm[Hg] [facility] pressure 07:15:00 [facility] Heart rate 2019-12-22 86 /min [facility] 07:15:00 [facility] Respiratory rate 2019-12-22 18 /min [facility] 07:15:00 [facility] Oxygen saturation 2019-12-22 97 /min [facility] in Arterial blood 07:15:00 [facility] tyler by Pulse oximetry Branch Body temperature 2019-12-22 38.06 Debra [place] of 02:58:00 [facility] Body weight 2019-12-22 149.687 kg [facility] 02:58:00 [facility] BMI 2019-12-22 62.35 kg/m2 [place] of 02:58:00 [facility] Systolic blood 2019-08-20 148 mm[Hg] [facility] pressure 17:52:00 [facility] Diastolic blood 2019-08-20 90 mm[Hg] [facility] f pressure 17:52:00 [facility] Heart rate 2019-08-20 89 /min [facility] 17:52:00 [facility] Body temperature 2019-08-20 36.89 Debra [facility] 17:52:00 [facility] Respiratory rate 2019-08-20 20 /min [facility] 17:52:00 [facility] Body weight 2019-08-20 149.687 kg [facility] 17:52:00 [facility] BMI 2019-08-20 62.35 kg/m2 [facility] 17:52:00 [facility] Oxygen saturation 2019-08-20 98 /min [facility] in Arterial blood 17:52:00 [facility] tyler by Pulse oximetry Branch Heart rate 2022-07-15 84 /min [facility] 12:18:59 [facility] Respiratory rate 2022-07-15 19 /min [facility] 12:18:59 [facility] Oxygen saturation 2022-07-15 97 /min [facility] in Arterial blood 12:18:59 [facility] nter by Pulse oximetry Body temperature 2022-07-[address] [facility] 12:18:38 [facility] Systolic blood 2022-07-15 128 mm[Hg] [facility] pressure 12:18:00 [facility] Diastolic blood 2022-07-15 70 mm[Hg] [facility] pressure 12:18:00 [facility] Body height 2022-07-[address] [facility] 22:19:51 [facility] Body weight 2022-07-[address] [facility] 22:19:51 [facility] BMI 2022-07-07 34.80 kg/m2 [facility] 22:19:51 [facility] Systolic blood 2022-07-06 123 mm[Hg] [facility] pressure 14:00:00 Medical Center Diastolic blood 2022-07-06 70 mm[Hg] [facility] pressure 14:00:00 Medical Center Heart rate 2022-07-06 84 /min [facility] 14:00:00 [facility] Center Respiratory rate 2022-07-06 23 /min [facility] 14:00:00 [facility] Oxygen saturation 2022-07-06 96 /min [facility] in Arterial blood 12:15:00 Medical Ce nter by Pulse oximetry Body temperature 2022-07-[address] [facility] 11:09:00 [facility] Body height 2022-07-[address] [facility] 11:09:00 [facility] Body weight 2022-07-[address] [facility] 11[facility]09:00 [facility] BMI 2022-07-06 35.32 kg/m2 [facility] 11:09:00 [facility] Systolic blood 2022-06-21 112 mm[Hg] [facility] pressure 11:15:00 Medical Center Diastolic blood 2022-06-21 51 mm[Hg] [facility] pressure 11:15:00 [facility] Heart rate 2022-06-21 68 /min [facility] 11:15:00 [facility] Body temperature 2022-06-[address] [facility] 11:15:00 [facility] Respiratory rate 2022-06-21 20 /min [facility] 11:15:00 [facility] Oxygen saturation 2022-06-21 96 /min [facility] Arterial blood 11:15:00 Medical Ce nter by Pulse oximetry Body height 2022-06-[address] [facility] 06:24:00 Medical Center Body weight 2022-06-[address] [facility] 06:24:00 [facility] BMI 2022-06-20 36.58 kg/m2 [facility] 06:24:00 [facility] Systolic blood 2022-03-23 118 mm[Hg] [facility] pressure 07:00:00 Hospital Diastolic blood 2022-03-23 58 mm[Hg] [facility] pressure 07:00:00 Hospital Heart rate 2022-03-23 60 /min [facility] 07:00:00 Hospital Respiratory rate 2022-03-23 16 /min [facility] 07:00:00 Hospital Oxygen saturation 2022-03-23 96 /min [facility] in Arterial blood 07:00:00 Hospital by Pulse oximetry Body temperature 2022-03-23 37.17 Debra [facility] 05:17: Hospital Body height 2022-03-23 175.3 cm [facility] 05:17: Hospital Body weight 2022-03-23 118.18 kg [facility] 05:17: Hospital BMI 2022-03-23 38.47 kg/m2 [facility] 05:17:00 Hospital BP Systolic 2019-07-13 118 mm[Hg] Location: [facility]; [facility] 13:08:00 Position: Sitting BP Diastolic 2019-07-13 73 mm[Hg] Location: [facility]; [facility] 13:08:00 Position: Sitting Height 2019-07-13 68 [in_us] [facility] 13:08:00 Weight 2019-07-13 331 [lb_av] [facility] 13:08:00 Body Mass Index 2019-07-13 50.33 kg/m2 [facility] Calculated 13:08:00 Heart Rate 2019-07-13 84 /min [facility] 13:08:00 BP Systolic 2019-04-16 100 mm[Hg] Location: [facility] 12:58:00 Position: Sitting BP Diastolic 2019-04-16 66 mm[Hg] Location: [facility]; [facility] 12:58:00 Position: Sitting Height 2019-04-16 68 [in_us] [facility] 12:58:00 Weight 2019-04-16 332 [lb_av] [facility] 12:58:00 Body Mass Index 2019-04-16 50.48 kg/m2 [facility] Calculated 12:58:00 Heart Rate 2019-04-16 91 /min Location: L [facility] 12:58:00 Radial; Quality: Normal BP Systolic 2019-03-26 122 mm[Hg] Location: [facility] 11:25:00 Position: Sitting BP Diastolic 2019-03-26 73 mm[Hg] Location: [facility]; [facility] 11:25:00 Position: Sitting Height 2019-03-26 68 [...] BP Systolic 2019-02-05 120 mm[Hg] Location: [facility]; [facility] 16:19:00 Position: Sitting BP Diastolic 2019-02-05 74 mm[Hg] Location: [facility]; [facility] 16:19:00 Position: Sitting Height 2019-02-05 68 [...] BP Diastolic 2019-01-14 76 mm[Hg] Location: [facility]; [facility] 08:45:00 Position: Sitting Height 2019-01-14 68 [...] BP Systolic 2019-01-13 119 mm[Hg] Location: [facility]; [facility] 08:26:00 Position: Sitting BP Diastolic 2019-01-13 79 mm[Hg] Location: [facility]; [facility] 08:26:00 Position: Sitting Heart Rate 2019-01-13 91 /min [facility] 08:26:00 Respiration Rate 2019-01-13 19 /min [facility] 08:26:00 BP Systolic 2019-01-13 123 mm[Hg] Location: [facility]; [facility] 08:22:00 Position: Sitting BP Diastolic 2019-01-13 85 mm[Hg] Location: [facility]; [facility] 08:22:00 Position: Sitting Height 2019-01-13 68 [in_us] [facility] 08:22:00 Weight 2019-01-13 325 [lb_av] [facility] 08:22:00 Body Mass Index 2019-01-13 49.42 kg/m2 [facility] Calculated 08:22:00 BP Systolic 2018-12-29 111 mm[Hg] Location: L[facility]; [facility] 13:10:00 Position: Sitting BP Diastolic 2018-12-29 73 mm[Hg] Location: [facility]; [facility] 13:10:00 Position: Sitting Weight 2018-12-29 325.4375 [lb_av] [facility] 13:10:00 Height 2018-12-29 68 [in_us] [facility] 13:10:00 Body Mass Index 2018-12-29 49.48 kg/m2 [facility] Calculated 13:10:00 Temperature 2018-12-29 98.3 [degF] Method: Oral [facility] 13:10:00 Heart Rate 2018-12-29 93 /min Location: L [facility] 13:10:00 Brachial Artery; Quality: Normal O2 SAT 2018-12-29 94 % Source: RA [facility] 13:10:00 Respiration Rate 2018-12-29 20 /min Quality: Normal [facility] 13:10:00 Procedures Procedure Date / Time Performing Clinician Source Performed ELECTROCARDIOGRAM COMPLETE 2022-07-26 11:58:00 B [facility] CBC W/AUTO DIFF WITH 2022-07-20 13:21:37 [facility] COMPREHENSIVE METABOLIC 2022-07-20 13:21:37 [facility] IRON+TIBC+%SAT 2022-07-20 13:21:37 [facility] FERRITIN 2022-07-20 13:21:37 [facility] CTA CHEST FOR PULMONARY 2022-07-14 11:22:[address] [facility] EMBOLUS [facility] URINE CULTURE 2022-07-12 18:32:00 Yecenia Kwon [facility] URINALYSIS W/ REFLEX URINE 2022-07-12 18:32:00 Yecenia Kwon [facility] ECG 12-LEAD 2022-07-12 15:58:45 Marleny Humphreys [facility] XR CHEST 1 VIEW PORTABLE / 2022-07-12 07:42:00 Aakash Price [facility] PROCEDURE, IN NON-OPERATING 2022-07-10 20:35:[address] [facility] ROOM SETTING Medical Center CT DRAINAGE W CATH 2022-07-10 18:39:00 Marleny Humphreys [facility] PROTHROMBIN TIME/INR 2022-07-09 03:48:00 KwonYecenia [facility] SCREEN, URINE 2022-07-09 00:04:[address] [facility] BASIC METABOLIC PANEL 2022-07-08 03:49:00 Kvng [facility] MAGNESIUM 2022-07-08 03:49:00 Kvng [facility] PHOSPHORUS 2022-07-08 03:49:00 Kvng [facility] CBC W/PLT COUNT & AUTO 2022-07-08 03:49[facility] 2022-07-08 03:49[facility] 2022-07-08 03:49:00 Alexis Baker [facility] CBC W/PLT COUNT & AUTO 2022-07-08 03:49:00 Kvng [facility] CT ABDOMEN/PELVIS WITH IV 2022-07-06 12:20:00 Allyson Jolly CH, I [facility] CONTRAST [facility] URINALYSIS W/ REFLEX URINE 2022-07-06 12:14:[address] [facility] CULTURE [facility] URINE CULTURE 2022-07-06 12:14:00 Shanae [facility] SARS-COV2/RT-PCR ([facility] & 2022-07-06 11:48:00 Shanae [facility] REF LABS) [facility] COMPREHENSIVE METABOLIC 2022-07-06 11:15:[address] [facility] PANEL [facility] CBC W/PLT COUNT & AUTO 2022-07-06 11:15:00 Allyson Jolly [facility] LIPASE 2022-07-06 11:15[facility], VENOUS 2022-07-06 11:15:00 Shanae [facility] PT/APTT 2022-07-06 11:15:[address] [facility] TYPE AND SCREEN, AUTOMATED 2022-07-06 11:15:00 Allyson Jolly [facility] CBC W/PLT COUNT & AUTO 2022-07-06 11:15:00 [facility] DIFFERENTIAL [facility] LYMPHOCYTE PHENOTYPING 2022-07-05 11:06:49 [place] [id number] Medicine B-CELL MEMORY AND NAIVE 2022-07-05 11:06:49 [facility] MR CERVICAL SPINE WO 2022-07-04 21:57:00 Kerry Horvath [facility] PA IV INFUSION, HYDRATION, 2022-07-03 10:24:31 [facility] ADD HOUR Medicine PA IV INFUSION, HYDRATION, 2022-07-03 10:24:31 [facility] 31-60 MIN Medicine XR CERVICAL SPINE 2 VW 2022-06-29 20:11:45 Kerry Horvath [facility] CONSENT/REFUSAL FOR 2022-06-29 19:48:14 Doctor Unassigned[facility] DIAGNOSIS AND TREATMENT [facility] ASSIGNMENT OF BENEFITS 2022-06-29 19:48:00 [facility] AMB REF TO ALLERGY AND 2022-06-28 19:57:08 [facility] IMMUNOLOGY IN DEPT OF Medicine MEDICINE [facility] POCT-GLUCOSE METER 2022-06-21 11:16:00 Froilan [facility] URINALYSIS W/ REFLEX URINE 2022-06-21 07:37:00 Rukhsana Esposito [facility] POCT-GLUCOSE METER 2022-06-21 05:35:00 Froilan [facility] POCT-GLUCOSE METER 2022-06-21 00:05:00 Froilan [facility] POCT-GLUCOSE METER 2022-06-20 17:50:00 Froilan [facility] TISSUE EXAM 2022-06-20 11:46:[address] [facility] GASTRECTOMY, SLEEVE, 2022-06-20 10:49:00 Froilan [facility] LAPAROSCOPIC [facility] POCT-GLUCOSE METER 2022-06-20 06:35:00 Froilan [facility] [facility] POCT , URINE 2022-06-20 06:25:00 Nicolas Ellington [facility] ED ECG INTERPRETATION 2022-06-19 20:47:00 Dmitri Mckeon CH I [facility] XR CHEST 1 VIEW PORTABLE / 2022-06-19 19:42:00 Shelly Mckeon in [facility] ECG 12-LEAD 2022-06-19 19:23:04 Unknown, Hl7 Doctor [facility] ECG 12-LEAD 2022-06-19 19:23:04 Dmitri Mckeon [facility] ECG 12-LEAD 2022-06-19 19:23:04 Unknown, Hl7 Doctor [facility] EKG-SCANNED 2022-06-19 00:00:00 Provider, Default [facility] XR SCAPULA RIGHT 2022-06-15 22:25:00 Sydnie Gallegos [facility] XR SHOULDER 2+ VW RIGHT 2022-06-15 22:25:00 Sydnie Gallegos [facility] HEMOGLOBIN 2022-06-14 13:12:00 Ziyad Allen [facility] ELECTROLYTES 2022-06-14 13:12:00 Ziyad Allen [facility] BUN AND CREATININE W/RATIO 2022-06-14 13:12:00 Ziyad Allen and [facility] PATIENT QUESTIONNAIRE 2022-06-14 06:01:00 Doctor Unassigned, Uni [facility] OCT, RETINA - OU - BOTH 2022-06-13 14:47:24 [facility] EYES [facility] OCT, OPTIC NERVE - OU - 2022-06-13 14:47:22 [facility] BOTH EYES Medicine 24-2 AGUSTIN FASTER,OU-BOTH 2022-06-13 14:47:21 [facility] EYES [facility] IMMUNOGLOBULINS IGG IGA IGM 2022-06-08 17:00:00 [facility] C4 COMPLEMENT 2022-06-08 17:00:00 [facility] C3 COMPLEMENT 2022-06-07 12:11:26 [facility] DIPTHERIA/TETANUS AB PANEL 2022-06-07 12:09:37 B [facility] STREP PNEUMONIAE AB, 23 2022-06-07 12:09:37 [facility] B-CELL MEMORY AND NAIVE 2022-06-07 12:00:28 [facility] LYMPHOCYTE PHENOTYPING 2022-06-07 12:00:28 [place] [id number] Medicine IGE 2022-06-07 11:46:17 [facility] IGE 2022-06-07 11:46:17 [facility] EMG/NCV 2022-06-06 16:15:[address] [facility] [place] [place] IGE 2022-05-31 11:00:16 [facility] B-CELL MEMORY AND NAIVE 2022-05-31 10:59:01 [facility] LYMPHOCYTE PHENOTYPING 2022-05-31 10:59:[address] N-METHYLHISTAMINE, 24 HR, U 2022-05-31 10:57:25 [facility] SPIROMETRY WITH 2022-05-30 13:54:16 [facility] BRONCHODILATOR [facility] EMG PM\\T\\R 2022-05-09 12:47:12 [facility] REPORT OF PROCEDURE - 2022-05-07 15:33:[address] [facility] ENDOSCOPY [facility] REPORT OF PROCEDURE - 2022-05-07 15:32:[address] [facility] ENDOSCOPY [facility] ESOPHAGOGASTRODUODENOSCOPY, 2022-05-07 14:42:00 Ilai Pascal [facility] WITH PH MONITORING CAPSULE Medic al Center INSERTION COLONOSCOPY 2022-05-07 14:42:00 Ilia Pascal [facility] POCT , URINE 2022-05-07 12:19:00 Willard Bueno CH I [facility] PA NASAL ENDOSCOPY,DX 2022-05-06 22:44:59 [facility] TSH 2022-05-05 11:22:00 [facility] COMPLEMENT COMPONENT C3C 2022-05-05 11:22:00 [facility] C4 COMPLEMENT 2022-05-05 11:22:00 [facility] IMMUNOGLOBULINS IGG IGA IGM 2022-05-05 11:22:00 [facility] TRYPTASE 2022-05-05 11:22:00 [facility] C4 COMPLEMENT 2022-05-05 11:11:00 [facility] TRYPTASE 2022-05-05 11:11:00 [facility] IMMUNOGLOBULINS IGG IGA IGM 2022-05-05 11:11:00 [facility] DIPTHERIA/TETANUS AB PANEL 2022-05-05 11:11:00 B [facility] STREP PNEUMONIAE ANTIBODY 2022-05-05 11:11:00 [facility] SPIROMETRY WITH 2022-05-01 16:23:58 [facility] BRONCHODILATOR Medicine C3 COMPLEMENT 2022-05-01 15:33:48 [facility] C4 COMPLEMENT 2022-05-01 15:33:48 [facility] TRYPTASE 2022-05-01 15:33:48 [facility] [place]GE 2022-05-01 15:33:48 [facility] IMMUNOGLOBULINS IGG IGA IGM 2022-05-01 15:33:48 [facility] LYMPHOCYTE PHENOTYPING 2022-05-01 15:33:[address] B-CELL MEMORY AND NAIVE 2022-05-01 15:33:48 [facility] N-METHYLHISTAMINE, URINE 2022-05-01 15:33:48 [facility] DIPTHERIA/TETANUS AB PANEL 2022-05-01 15:33:48 B [facility] STREP PNEUMONIAE ANTIBODY 2022-05-01 15:33:48 [facility] AMB REF TO ALLERGY AND 2022-04-30 10:15:04 [facility] IMMUNOLOGY IN DEPT OF Medicine MEDICINE [facility] PAP SETTING CHANGE 2022-04-19 15:05:09 [facility] SLEEP EQUIPMENT DOWNLOAD 2022-04-19 12:10:35 [facility] AMB REF TO ENT [facility] 2022-04-19 12:10:15 [facility] EMG NEUROLOGY 2022-04-09 11:11:17 [facility] AMB REF TO PT EXTERNAL 2022-04-09 11:04:43 [facility] VITAMIN B6 2022-04-06 11:30:00 [facility] VITAMIN B12 2022-04-06 11:30:00 [facility] VITAMIN B1 2022-04-06 11:30:00 [facility] VITAMIN A 2022-04-06 11:30:00 [facility] URINALYSIS, COMPLETE 2022-04-06 11:30:00 [facility] W/REFLEX TO CULTURE Medicine PROTIME \\T\\ PTT 2022-04-06 11:30:00 [facility] LIPID PANEL 2022-04-06 11:30:00 [facility] IRON, TIBC AND FERRITIN 2022-04-06 11:30:00 [facility] HEMOGLOBIN A1C 2022-04-06 11:30:00 [facility] FOLATE 2022-04-06 11:30:00 [facility] COMPREHENSIVE METABOLIC 2022-04-06 11:30:00 [facility] CBC W/AUTO DIFF WITH 2022-04-06 11:30:00 [facility] THYROID PROFILE (T3U - T4 - 2022-04-06 11:30:00 [facility] T7 - TSH) Medicine REFLEXIVE URINE CULTURE 2022-04-06 11:30:00 [facility] VITAMIN D, 25-HYDROXY, 2022-04-06 11:30:00 [facility] LC/MS/MS Medicine ASSIGNMENT OF BENEFITS 2022-04-03 18:47:41 Doctor Unassigned, [facility] URINALYSIS 2022-03-23 06:56:00 Ricci Benedict [facility] [place] [facility] HEAD WO CONTRAST 2022-03-23 06:27:39 [facility] [place] AMB REF TO OPHTHALMOLOGY 2022-03-21 11:35:41 [facility] Medicine XR SHOULDER COMPLETE 2 2022-03-17 13:21:00 Donny Feng [facility] VIEWS MIN [facility] MR CERVICAL SPINE WITH & 2022-03-16 22:43:00 My Donny [facility] WITHOUT IV CONTRAST Medical [facility] er MR BRAIN WITH & WITHOUT IV 2022-03-16 22:42:[address] [facility] CONTRAST [facility] ECG 12-LEAD 2022-03-16 01:36:41 Unknown, Hl7 [facility] ECG 12-LEAD 2022-03-16 01:36:41 Mariel Ferrell [facility] ECG 12-LEAD 2022-03-16 01:36:41 Unknown, Hl7 [facility] URINE CULTURE 2022-03-15 17:52:00 Donny Feng [facility] URINALYSIS W/ REFLEX URINE 2022-03-15 17:52:00 Donny Feng [facility] MISCELLANEOUS LAB ORDER 2022-03-15 12:33:00 Saleem Albert [facility] COPPER 2022-03-15 09:09:00 Yuli Robles [facility] BASIC METABOLIC PANEL 2022-03-15 05:20:00 [facility] HEPATIC FUNCTION PANEL 2022-03-15 05:20:00 Yuli Robles [facility] MAGNESIUM 2022-03-15 05:20:00 Yuli Robles [facility] TSH/FREE T4 IF INDICATED 2022-03-15 03:24:00 Yuli Robles [facility] PROTEIN ELECTROPHORESIS, 2022-03-15 03:24:00 Yuli Robles [facility] CBC W/PLT COUNT & AUTO 2022-03-15 03:24:00 Yuli Robles [facility] CBC W/PLT COUNT & AUTO 2022-03-15 03:24:00 Yuli Robles [facility] VITAMIN B12 2022-03-15 03:24:00 Yuli Robles [facility] SARS-COV2/RT-PCR ([facility] & 2022-03-14 22:10:[address] [facility] REF LABS) [facility] CBC W/PLT COUNT & AUTO 2022-03-14 18:11:00 Trina [facility] PT/APTT 2022-03-14 18:11:00 Trina [facility] COMPREHENSIVE METABOLIC 2022-03-14 18:11:00 Trina, [facility] HCG, QUANTITATIVE, 2022-03-14 18:11:00 Trina [facility] CBC W/PLT COUNT & AUTO 2022-03-14 18:11:00 Trina [facility] IMMUNOFIXATION + PROTEIN 2022-03-12 21:32:00 Leonora Smith [facility] ELECTROPHORESIS - SERUM [facility] VITAMIN B12 2022-03-12 21:29:00 [facility] PYRUVIC ACID 2022-03-12 21:29:00 [facility] IMMUNOFIXATION + PROTEIN 2022-03-12 16:32:00 [facility] - SERUM Medicine VITAMIN B12 2022-03-12 16:29:00 [facility] PYRUVIC ACID 2022-03-12 16:29:00 [facility] PARANEOPLASTIC PANEL, W RFL 2022-03-12 14:20:17 [facility] (SERUM) [facility] LACTATE 2022-03-12 14:20:17 [facility] REFERRAL- REQUEST/RESPONSE 2022-03-09 05:01:00 Doctor Unassigned , [facility] CT BRAIN WITHOUT IV 2022-03-07 17:56:00 Pili Springer [facility] CONTRAST [facility] CBC W/PLT COUNT & AUTO 2022-03-07 17:21:00 [facility]ili [facility] COMPREHENSIVE METABOLIC 2022-03-07 17:21:[address] [facility] PANEL [facility] MAGNESIUM 2022-03-07 17:21:00 Pili Springer [facility] PHOSPHORUS 2022-03-07 17:21:00 Pili Springer [facility] CBC W/PLT COUNT & AUTO 2022-03-07 17:21:00 [facility] DIFFERENTIAL [facility] AMB REF TO NEUROLOGY [facility] 2022-02-27 13:16:53 [facility] HIV AB/AG 4TH GEN W RFLX 2022-02-22 08:25:00 [facility] URINALYSIS, COMPLETE 2022-02-21 12:24:24 [facility]/REFLEX TO CULTURE Medicine CBC W/AUTO DIFF WITH 2022-02-21 12:16:08 [facility] PLATELETS [facility] METABOLIC 2022-02-21 12:16:08 [facility] CPAP MACHINE 2022-02-16 00:00:00 [facility] COMPREHENSIVE METABOLIC 2022-02-12 14:54:05 [facility] HIV AB/AG 4TH GEN W RFLX 2022-02-12 14:52:22 [facility] CBC W/AUTO DIFF WITH 2022-02-12 14:52:22 [facility] PLATELETS [facility] C DIFFICILE TOXIN PCR 2022-02-06 16:44:00 [facility] [place] ESOPHAGUS 2022-01-15 11:07:[address] [facility] CBC W/AUTO DIFF WITH 2022-01-09 15:26:25 [facility] PLATELETS [facility] COMPREHENSIVE METABOLIC 2022-01-09 15:26:25 [facility] TSH 2022-01-09 15:26:25 [facility] CPAP MACHINE 2021-12-21 14:08:51 [facility] DIAGNOSTIC SLEEP STUDY 2021-12-21 08:15:20 [facility] DIAGNOSTIC SLEEP STUDY 2021-12-21 00:00:00 [facility] POLYSOMNOGRAPHY 2021-12-13 22:41:53 Pablo Fernandez [facility] POLYSOMNOGRAPHY REPORT - 2021-12-13 00:00:00 Provider, Sierra KENNEDY [facility] ELECTROCARDIOGRAM COMPLETE 2021-11-23 22:37:57 Abdoulaye Pierce [facility] ELECTROCARDIOGRAM COMPLETE 2021-11-23 17:37:57 Howard [facility] URINALYSIS W REFLEX MICRO 2021-11-22 13:55:00 Vicente [facility] URINE CULTURE 2021-11-22 13:55:00 [facility] PLEASE NOTE 2021-11-22 13:55:00 [facility] CBC W/AUTO DIFF WITH 2021-11-21 10:43:51 [facility] BASIC METABOLIC PANEL 2021-11-21 10:43:51 [facility] HEPATIC FUNCTION PANEL 2021-11-21 10:43:51 [facility] SEDIMENTATION RATE MODIFIED 2021-11-21 10:43:51 [facility] AMB REF TO PSYCHOLOGY 2021-11-16 11:34:51 [facility] VITAMIN B12 2021-11-14 15:44:21 [facility] VITAMIN B1 2021-11-14 15:44:21 [facility] VITAMIN A 2021-11-14 15:44:21 [facility] URINALYSIS, COMPLETE 2021-11-14 15:44:21 [facility]/REFLEX TO CULTURE Medicine PROTIME \\T\\ PTT 2021-11-14 15:44:21 [facility] LIPID PANEL 2021-11-14 15:44:21 [facility] IRON, TIBC AND FERRITIN 2021-11-14 15:44:21 [facility] HEMOGLOBIN A1C 2021-11-14 15:44:21 [facility] FOLATE 2021-11-14 15:44:21 [facility] COMPREHENSIVE METABOLIC 2021-11-14 15:44:21 [facility] CBC W/AUTO DIFF WITH 2021-11-14 15:44:21 [facility] Medicine AMB REF TO PHYSICAL MED 2021-11-14 15:44:[address] [facility] THYROID PROFILE (T3U - T4 - 2021-11-14 15:44:21 [facility] T7 - TSH) Medicine AMB REF TO BARIATRIC 2021-11-14 15:44:21 [facility] [employer] [facility] VITAMIN D 25 HYDROXY 2021-11-14 15:44:20 [facility] VITAMIN B6 2021-11-14 15:44:20 [facility] AMB REF TO GENETICS(GENERAL 2021-11-08 11:25:03 [facility] \\T\\ ALL CANCERS)[facility] AMB REF TO BARIATRIC 2021-11-06 13:46:59 [facility] SURGERY [facility] AMB REF TO SLEEP 2021-11-06 13:45:36 [facility] Deangelo ege of [facility] Medicin e CT ABDOMEN/PELVIS WITH IV 2021-10-03 21:22:00 Makenzie Varela [facility] CONTRAST Medical Center URINALYSIS W/ REFLEX URINE 2021-10-03 20:00:00 Makenzie Varela [facility] CULTURE [facility] SARS-COV2/RT-PCR ([facility] & 2021-10-03 19:58:00 Makenzie Varela [facility] REF LABS) [facility] Center CBC W/PLT COUNT & AUTO 2021-10-03 19:40:[address] [facility] DIFFERENTIAL Medical Center COMPREHENSIVE METABOLIC 2021-10-03 19:40:00 Makenzie Varela [facility] PANEL [facility] B-TYPE NATRIURETIC FACTOR 2021-10-03 19:40:00 Makenzie Varela [facility] (BNP) Medical Center HCG, QUANTITATIVE, 2021-10-03 19:40:00 Makenzie Varela [facility] Medical [place] HIGH SENSITIVITY TROPONIN I 2021-10-03 19:40:00 [facility] 2021-10-03 19:40:00 Makenzie Varela [facility] PHOSPHORUS 2021-10-03 19:40:00 Ct anamaria [facility] LIPASE 2021-10-03 19:40:[address] [facility] LACTIC ACID, VENOUS 2021-10-03 19:40:00 [facility] CBC W/PLT COUNT & AUTO 2021-10-03 19:40:[address] [facility] XR CHEST 2 VIEWS 2021-10-03 19:06:00 [facility] ECG 12-LEAD 2021-10-03 18:24:15 Unknown, Hl7 [facility] ECG 12-LEAD 2021-10-03 18:24:15 Unknown, Hl7 [facility] ECG 12-LEAD 2021-10-03 18:24:15 Unknown, Hl7 [facility] EKG-SCANNED 2021-10-03 00:00:00 Provider, [facility] Scanning [facility] PA OCCUPATIONAL THERAPY 2021-06-27 13:19:30 [facility] LOW COMPLEX 30 MINS Medicin e PA CANALITH REPOSITIONING 2021-06-27 13:19:30 [facility] PROCEDURE, PER DAY Medicine AMB REF TO SIVAKUMAR BALANCE 2021-06-27 11:47:25 [facility] Medicine HOMOCYSTEINE 2021-03-21 19:23:28 [facility] LIPID PANEL 2021-03-21 19:23:28 [facility] PROTEIN ELECTROPHORESIS - 2021-03-21 19:23:28 [facility] REFLEX TO IMMUNOFIXATION Medicin e RPR - W RFLX TO MHA-TP 2021-03-21 19:23:28 [facility] SEDIMENTATION RATE MODIFIED 2021-03-21 19:23:28 [facility] Medicine T3 UPTAKE 2021-03-21 19:23:28 [facility] T4 2021-03-21 19:23:28 [facility] TSH 2021-03-21 19:23:28 [facility] VITAMIN B12 2021-03-21 19:23:28 [facility] HEMOGLOBIN A1C 2021-03-21 19:23:28 [facility] VITAMIN D 25 HYDROXY 2021-03-21 19:23:28 [facility] FOLATE 2021-03-21 19:23:28 [facility] SJOGREN'S SS-A AND SS-B 2021-03-21 19:23:28 [facility] VITAMIN B6 2021-03-21 19:23:28 [facility] VITAMIN B1 2021-03-21 19:23:28 [facility] PARANEOPLASTIC PANEL, W RFL 2021-03-21 19:23:28 [facility] (SERUM) [facility] ANGIOTENSIN CONVERTING 2021-03-21 19:23:28 [facility] PORPHOBILINOGEN SCREEN 2021-03-21 19:23:28 [facility] AMB REF TO NEUROPSYCH 2021-03-21 19:23:27 [facility] AMB REF TO SLEEP 2021-03-21 19:23:27 [facility] Deangelo ege of [facility]-STUDY \\T\\ TREATMENT Medic ine WARREN REFLEX TO NUCLEAR AB 2021-03-21 19:23:27 Health system APOLIPOPROTEIN E MUTATION - 2021-03-21 19:23:27 [facility] CARDIAC Medicine CBC W/AUTO DIFF WITH 2021-03-21 19:23:27 [facility] PLATELETS [facility] COMPREHENSIVE METABOLIC 2021-03-21 19:23:27 [facility] PA COMPREHENSIVE HEARING 2021-03-03 15:03:51 [facility] PA TYMPANOMETRY 2021-03-03 15:03:51 [facility] AMB REF TO SIVAKUMAR AUDIOLOGY 2021-03-03 14:27:08 [facility] ASSIGNMENT OF BENEFITS 2020-03-10 18:05:52 Doctor Unassigned, [facility] Post Op Promis 29 Survey 2020-01-08 00:00:00 [facility] US Extremity lower venous 2019-12-23 00:00:00 [facility] Doppler Unilat [id number] BILATERAL VENOUS DUPLEX 2019-12-22 05:01:[address] [facility] LOWER EXTREMITY BY VASCULAR Medi tyler Branch LAB XR CHEST 2 VW 2019-12-22 04:26:01 Sarbjit [facility] COVID-19 (ID NOW RAPID 2019-12-22 03:39:00 Sarbjit [facility] TESTING) Medical Branch TROPONIN I 2019-12-22 03:33:00 Sarbjit [facility] HEPATIC FUNCTION PANEL 2019-12-22 03:33:00 Sarbjit [facility] ([id number]) (ALB,T.PRO,BILI [facility] T,BU/BC,ALT,AST,ALK PHOS) BASIC METABOLIC PANEL (NA, 2019-12-22 03:33:00 Sarbjit [facility] K, CL, CO2, GLUCOSE, BUN, Medica l Branch CREATININE, CA) CBC WITH DIFFERENTIAL 2019-12-22 03:33:00 Sarbjit [facility] D-DIMER 2019-12-22 03:33:00 Sarbjit [facility] N-TERMINAL PRO-BNP 2019-12-22 03:33:00 Sarbjit Dede [facility] URINALYSIS 2019-12-22 03:22:00 Sarbjit [facility] POCT TEST 2019-12-22 03:21:00 Dede Schaffer [facility] NOTICE OF PRIVACY PRACTICES 2019-12-22 02:50:34 Doctor Cal winn [facility] Name [facility] CONSENT/REFUSAL FOR 2019-12-22 02:50:16 Doctor Gonzalez [facility] DIAGNOSIS AND TREATMENT [facility] MR Ankle wo contrast [id number] 2019-10-19 00:00:00 [facility] MRI Spine lumbar wo 2019-08-24 00:00:00 [facility] contrast [id number] XR HIPS 2 VW RIGHT 2019-08-20 18:42:57 Mehreen Marquez [facility] NOTICE OF PRIVACY PRACTICES 2019-08-20 17:37:34 Doctor Cal winn [facility] CONSENT/REFUSAL FOR 2019-08-20 17:37:25 Doctor Unassigned, Unive [facility] DIAGNOSIS AND TREATMENT [facility] Post Op Promis 29 Survey 2019-05-20 00:00:00 [facility] [QLH] CLOSTRIDIUM DIFFICILE 2019-04-16 00:00:00 [facility] TOXIN A AND B, EIA [QLH] CULTURE, STOOL 2019-04-16 00:00:00 [facility] (CAMPYLOBACTER, SALMONELLA/SHIGELLA) MR Shoulder wo contrast 2019-04-08 00:00:00 [facility] [id number] Colonoscopy 2019-03-06 00:00:00 [facility] [[facility]] CLOSTRIDIUM DIFFICILE 2019-03-05 00:00:00 [facility] TOXIN A AND B, EIA [QLH] CULTURE, URINE, 2019-02-13 00:00:00 [facility] ROUTINE [LH] GC/CT by Amp Det 2019-02-13 00:00:00 [facility] (APTIMA) MR Ankle wo contrast [id number] 2019-02-10 00:00:00 [facility] [QH] DRUG 2019-02-09 00:00:00 [facility] SCREEN,COMPREHENSIVE (URINE) XRAY Clavicle Bilateral 2019-01-29 00:00:00 [facility] [id number] [H] Celiac Pnl w/Rflx 2019-01-23 00:00:00 [facility] Endomy Ab Ttr [QLH] HEPATIC FUNCTION 2019-01-23 00:00:00 [facility] PANEL [H] LUNDBERG FibroSure 2019-01-23 00:00:00 [facility] [QL[facility]] CALPROTECTIN, STOOL 2019-01-23 00:00:00 [facility] US Abdomen Doppler [id number] 2019-01-23 00:00:00 [facility] Sleep Lab - Sleep Study 2019-01-14 00:00:00 [facility] Split Night [H] CK Isoenzymes 2019-01-14 00:00:00 [facility] Complete PFTs w/DLCO and 2019-01-14 00:00:00 [facility] Lung Volumes [N] 2D Echo complete, with 2019-01-14 00:00:00 [facility] Doppler [id number] [QLH] URINALYSIS, COMPLETE 2019-01-13 00:00:00 U T [...] Views 2019-01-13 00:00:00 [facility] Bilateral [id number] XRAY Chest 2 views [id number] 2019-01-13 00:00:00 [facility] XRAY Hip bilateral w pelvis 2019-01-13 00:00:00 [facility] and both lat hips [id number] XRAY Spine lumbar AP 2019-01-13 00:00:00 [facility] lateral [id number] XRAY Spine cervical 2 or 3 2019-01-13 00:00:00 [facility] view [id number] XRAY Shoulder series [id number] 2019-01-13 00:00:00 [facility] [QLH] TSH, [...] Luke s Test 00:00:00 (procedure) [code = [facility] [id number]] Future Scheduled 2025-04-[address] [facility] Test 00:00:00 (procedure) [code = [facility] [id number]] Future Scheduled 2025-04-[address] [facility] Test 00:00:00 (procedure) [code = [facility] [id number]] Future Scheduled 2025-04-[address] [facility] Test 00:00:00 (procedure) [code = [facility] [id number]] Future Scheduled 2023-07-[address] [...] Cessation Counseling and Screening (12+)] Future Scheduled 2022-07-26 Pneumococcal Vaccine: Me [facility]odist Test 05:19:59 Pediatrics (0 to 5 Hospital Years) and At-Risk Patients (6 to 64 Years) (1 - PCV) [code = Pneumococcal Vaccine: Pediatrics (0 to 5 Years) and At-Risk Patients (6 to 64 Years) (1 - PCV)] Future Scheduled 2022-07-26 Screening for [facility] Test 05:19:59 malignant neoplasm of Hospit al cervix (procedure) [code = 628044655] Future Scheduled 2022-07-26 BREAST CANCER [facility] Test 05:19:59 SCREENING [code = Hospital BREAST CANCER SCREENING] Future Scheduled 2022-07-26 COVID-19 VACCINE (5 - Me [facility] Test 05:19:59 Booster for Moderna Hospital series) [code = COVID-19 VACCINE (5 - Booster for Moderna series)] Future Scheduled 2022-07-26 INFLUENZA VACCINE Method ist Test 05:19:59 [code = INFLUENZA Hospital VACCINE] Future Scheduled 2022-07-20 Pneumococcal Vaccine: Me thodist Test 12:51:46 Pediatrics (0 to 5 Hospital Years) and At-Risk Patients (6 to 64 Years) (1 - PCV) [code = Pneumococcal Vaccine: Pediatrics (0 to 5 Years) and At-Risk Patients (6 to 64 Years) (1 - PCV)] Future Scheduled 2022-07-20 Screening for [facility] Test 12:51:46 malignant neoplasm of Hospit al cervix (procedure) [code = 675876307] Future Scheduled 2022-07-20 BREAST CANCER [facility] Test 12:51:46 SCREENING [code = Hospital BREAST [...] - PCV)] Future Scheduled 2022-07-06 Screening for [facility] 15:48:51 malignant neoplasm of Hospit al cervix (procedure) [code = 193167754] Future Scheduled 2022-07-06 BREAST CANCER [facility] 15:48:51 SCREENING [code = Hospital BREAST [...] - PCV)] Future Scheduled 2022-06-28 Screening for [facility] 13:07:28 malignant neoplasm of Hospit al cervix (procedure) [code = 137830144] Future Scheduled 2022-06-28 BREAST CANCER [facility] 13:07:28 SCREENING [code = Hospital BREAST CANCER SCREENING] Future Scheduled 2022-06-28 COVID-19 VACCINE (5 - [facility] 13:07:28 Booster for Moderna Hospital series) [code = COVID-19 VACCINE (5 - Booster for Moderna series)] Future Scheduled 2022-06-28 INFLUENZA VACCINE [facility] Test 13:07:28 [code = INFLUENZA Hospital VACCINE] Future Scheduled 2022-05-06 PA NASAL ENDOSCOPY,DX Ordered: [facility] Test 22:44:59 [code = 30582] 05/06/2022 of Medicine Future Scheduled 2022-05-06 Screening for [facility] 22:38:08 malignant neoplasm of of Med icine colon (procedure) [code = 863500316] Future Scheduled 2022-05-06 COVID-19 Vaccine (3 - [facility] Test 22:38:08 Moderna risk series) of Medi cine [code = COVID-19 Vaccine (3 - Moderna risk series)] Future Scheduled 2022-05-06 FLU VACCINE > 6 MONTHS Postponed from [facility] Test 22:38:08 [code = FLU VACCINE > 01/22/2022 of Med icine 6 MONTHS] (Postpone Reason: Patient declined today) Future Scheduled 2022-05-06 BMI FOLLOW UP PLAN [facility] [place] Test 22:38:08 [code = BMI FOLLOW UP of Med icine PLAN] Future Scheduled 2022-05-06 Screening for [facility] 22:38:08 malignant neoplasm of of Med icine breast (procedure) [code = 940722309] Future Scheduled 2022-05-06 Screening for [facility] Test 22:38:08 malignant neoplasm of of Med icine cervix (procedure) [code = 836232816] Future Scheduled 2022-05-06 TETANUS SHOT (ADULT) [facility] Test 22:38:08 [code = TETANUS SHOT of Medi cine (ADULT)] Future Scheduled 2022-04-30 CT SINUS W FUSION 1 Occurrences [facility] Test 10:15:04 [code = 43840] starting of Medicine 04/30/2022 until 04/30/2023 Future Scheduled 2022-04-24 Screening for [facility] Test 14:51:25 malignant neoplasm of of Med icine colon (procedure) [code = 470377471] Future Scheduled 2022-04-24 COVID-19 Vaccine (3 - [facility] Test 14:51:25 Moderna risk series) of Medi cine [code = COVID-19 Vaccine (3 - Moderna risk series)] Future Scheduled 2022-04-24 FLU VACCINE > 6 MONTHS Postponed from [facility] Test 14:51:25 [code = FLU VACCINE > 01/22/2022 of Med icine 6 MONTHS] (Postpone Reason: Patient declined today) Future Scheduled 2022-04-24 BMI FOLLOW UP PLAN [employer] Test 14:51:25 [code = BMI FOLLOW UP of Med icine PLAN] Future Scheduled 2022-04-24 Screening for [facility] 14:51:25 malignant neoplasm of of Med icine breast (procedure) [code = 901030990] Future Scheduled 2022-04-24 Screening for [facility] 14:51:25 malignant neoplasm of of Med icine cervix (procedure) [code = 866644394] Future Scheduled 2022-04-24 TETANUS SHOT (ADULT) [employer] Test 14:51:25 [code = TETANUS SHOT of Medi cine (ADULT)] Future Scheduled 2022-04-10 Screening for [facility] Test 06:58:13 malignant neoplasm of of Med icine colon (procedure) [code = 509195520] Future Scheduled 2022-04-10 COVID-19 Vaccine (3 - [facility] [employer] Test 06:58:13 Moderna risk series) of Medi cine [code = COVID-19 Vaccine (3 - Moderna risk series)] Future Scheduled 2022-04-10 FLU VACCINE > 6 MONTHS Postponed from [facility] [employer] Test 06:58:13 [code = FLU VACCINE > 01/22/2022 of Med icine 6 MONTHS] (Postpone Reason: Patient declined today) Future Scheduled 2022-04-10 BMI FOLLOW UP PLAN [employer] Test 06:58:13 [code = BMI FOLLOW UP of Med icine PLAN] Future Scheduled 2022-04-10 Screening for [facility] Test 06:58:13 malignant neoplasm of of Med icine breast (procedure) [code = 048612354] Future Scheduled 2022-04-10 Screening for [facility] Test 06:58:13 malignant neoplasm of of Med icine cervix (procedure) [code = 561524716] Future Scheduled 2022-04-10 TETANUS SHOT (ADULT) [employer] Test 06:58:13 [code = TETANUS SHOT of Medi cine (ADULT)] Future Scheduled 2022-04-09 Screening for [facility] Test 17:05:18 malignant neoplasm of of Med icine colon (procedure) [code = 250887594] Future Scheduled 2022-04-09 COVID-19 Vaccine (3 - [facility] [employer] Test 17:05:18 Moderna risk series) of Medi cine [code = COVID-19 Vaccine (3 - Moderna risk series)] Future Scheduled 2022-04-09 FLU VACCINE > 6 MONTHS Postponed from [facility] Test 17:05:18 [code = FLU VACCINE > 01/22/2022 of Med icine 6 MONTHS] (Postpone Reason: Patient declined today) Future Scheduled 2022-04-09 BMI FOLLOW UP PLAN [facility] [employer] Test 17:05:18 [code = BMI FOLLOW UP of Med icine PLAN] Future Scheduled 2022-04-09 Screening for [facility] Test 17:05:18 malignant neoplasm of of Med icine breast (procedure) [code = 707305704] Future Scheduled 2022-04-09 Screening for [facility] Test 17:05:18 malignant neoplasm of of Med icine cervix (procedure) [code = 217908886] Future Scheduled 2022-04-09 TETANUS SHOT (ADULT) [facility] Test 17:05:18 [code = TETANUS SHOT of Medi cine (ADULT)] Future Scheduled 2022-04-09 EMG NEUROLOGY [code = Ordered: [facility] Test 11:11:17 NOCPT] 04/09/2022 of Medicine Future Scheduled 2022-04-09 EMG PM&R [code = 1 Occurrences [facility] Test 11:06:28 20452] starting of Medicine 04/09/2022 until 04/09/2023 Future Scheduled 2022-03-30 Pneumococcal Combined [facility] [employer] Test 08:28:24 (2 - PPSV23 or PCV20) of Med icine [code = Pneumococcal Combined (2 - PPSV23 or PCV20)] Future Scheduled 2022-03-30 Screening for [facility] Test 08:28:24 malignant neoplasm of of Med icine colon (procedure) [code = 892065151] Future Scheduled 2022-03-30 COVID-19 Vaccine (3 - [facility] [employer] Test 08:28:24 Moderna risk series) of Medi cine [code = COVID-19 Vaccine (3 - Moderna risk series)] Future Scheduled 2022-03-30 FLU VACCINE > 6 MONTHS Postponed from [facility] [employer] Test 08:28:24 [code = FLU VACCINE > 01/22/2022 of Med icine 6 MONTHS] (Postpone Reason: Patient declined today) Future Scheduled 2022-03-30 BMI FOLLOW UP PLAN [employer] Test 08:28:24 [code = BMI FOLLOW UP of Med icine PLAN] Future Scheduled 2022-03-30 Screening for [facility] Test 08:28:24 malignant neoplasm of of Med icine breast (procedure) [code = 820984453] Future Scheduled 2022-03-30 Screening for [facility] Test 08:28:24 malignant neoplasm of of Med icine cervix (procedure) [code = 235640400] Future Scheduled 2022-03-30 TETANUS SHOT (ADULT) [employer] Test 08:28:24 [code = [...] cine (Initial)] Future Scheduled 2022-03-17 Screening for [facility] Test 10:49:37 malignant neoplasm of of Med icine colon (procedure) [code = 177146868] Future Scheduled 2022-03-17 COVID-19 Vaccine (3 - [facility] [employer] Test 10:49:37 Moderna risk series) of Medi cine [code = COVID-19 Vaccine (3 - Moderna risk series)] Future Scheduled 2022-03-17 FLU VACCINE > 6 MONTHS Postponed from [facility] [employer] Test 10:49:37 [code = FLU VACCINE > 01/22/2022 of Med icine 6 MONTHS] (Postpone Reason: Patient declined today) Future Scheduled 2022-03-17 BMI FOLLOW UP PLAN [employer] Test 10:49:37 [code = BMI FOLLOW UP of Med icine PLAN] Future Scheduled 2022-03-17 Screening for [facility] Test 10:49:37 malignant neoplasm of of Med icine breast (procedure) [code = 899222213] Future Scheduled 2022-03-17 Screening for [facility] 10:49:37 malignant neoplasm of of Med icine cervix (procedure) [code = 720249450] Future Scheduled 2022-03-17 TETANUS SHOT (ADULT) [place] [facility] [employer] Test 10:49:37 [code = TETANUS SHOT of Medi cine (ADULT)] Future Scheduled 2022-03-12 PARANEOPLASTIC PANEL, Ordered: [facility] [employer] Test 14:20:17 W RFL (SERUM) [code = 03/12/2022 of Med icine NOCPT] Future Scheduled 2022-03-12 LACTATE [code = Ordered: [facility] Test 14:20:17 [id number]] 03/12/2022 of Medicine Future Scheduled 2022-03-12 MRI BRAIN WO CONTRAST 1 Occurrences [facility] Test 14:20:17 [code = 00349-8] starting of Medicine 03/12/2022 until 03/12/2023 Future Scheduled 2022-03-08 Pneumococcal Combined [facility] [employer] Test 08:55:31 (2 - PPSV23 or PCV20) of Med icine [code = Pneumococcal Combined (2 - PPSV23 or PCV20)] Future Scheduled 2022-03-08 MEDICARE AWV (Initial) [facility] Test 08:55:31 [code = MEDICARE AWV of Medi cine (Initial)] Future Scheduled 2022-03-08 Screening for [facility] Test 08:55:31 malignant neoplasm of of Med icine colon (procedure) [code = 379799129] Future Scheduled 2022-03-08 COVID-19 Vaccine (3 - [facility] Test 08:55:31 Moderna risk series) of Medi cine [code = COVID-19 Vaccine (3 - Moderna risk series)] Future Scheduled 2022-03-08 FLU VACCINE > 6 MONTHS Postponed from [facility] [employer] Test 08:55:31 [code = FLU VACCINE > 01/22/2022 of Med icine 6 MONTHS] (Postpone Reason: Patient declined today) Future Scheduled 2022-03-08 BMI FOLLOW UP PLAN [facility] [employer] Test 08:55:31 [code = BMI FOLLOW UP of Med icine PLAN] Future Scheduled 2022-03-08 Screening for [facility] Test 08:55:31 malignant neoplasm of of Med icine breast (procedure) [code = 184997424] Future Scheduled 2022-03-08 Screening for [facility] Test 08:55:31 malignant neoplasm of of Med icine cervix (procedure) [code = 632659672] Future Scheduled 2022-03-08 TETANUS SHOT (ADULT) [employer] Test 08:55:31 [code = TETANUS SHOT of Medi cine (ADULT)] Future Scheduled 2022-03-07 CBC W/AUTO DIFF WITH Ordered: [place] [employer] Test 12:22:04 PLATELETS [code = 03/07/2022 of Medicin e 90265-0] Future Scheduled 2022-03-07 COMPREHENSIVE Ordered: [facility] Test 12:22:04 METABOLIC PANEL [code 03/07/2022 of Med icine = 21943-2] Future Scheduled 2022-03-07 CK [code = 2157-6] Ordered: [employer] Test 12:22:04 03/07/2022 of Medicine Future Scheduled 2022-03-07 C-REACTIVE PROTEIN Ordered: [facility] [employer] Test 12:22:04 [code = 1988-5] 03/07/2022 of Medicine Future Scheduled 2022-03-07 SEDIMENTATION RATE Ordered: [facility] [employer] Test 12:22:04 MODIFIED AREN 03/07/2022 of Medic ine [code = 4537-7] Future Scheduled 2022-03-07 WARREN W REFLEX TITER Ordered: [facility] [employer] Test 12:22:04 [code = NOCPT] 03/07/2022 of Medicine Future Scheduled 2022-03-07 CARDIOLIPIN ANTIBODIES Ordered: [facility] [employer] Test 12:22:04 [code = 93626] 03/07/2022 of Medicine Future Scheduled 2022-03-07 BETA-2 GLYCOPROTEIN Ordered: [employer] Test 12:22:04 ANTIBODIES [code = 03/07/2022 of Medici ne 1951-] Future Scheduled 2022-03-07 LUPUS ANTICOAGULANT Ordered: [employer] Test 12:22:04 WITH REFLEX [code = 03/07/2022 of Medic ine NOCPT] Future Scheduled 2022-03-07 RHEUMATOID FACTOR Ordered: [facility] [employer] Test 12:22:04 [code = 57521-4] 03/07/2022 of Medicine Future Scheduled 2022-03-07 DRUG SAFETY ASSISTANT ANTIBODY [code = Ordered: [place] [facility] [employer] Test 12:22:04 NOCPT] 03/07/2022 of Medicine Future Scheduled 2022-03-07 BRADSHAW (SM) ANTIBODY Ordered: [facility] Test 12:22:04 [code = 77588-2] 03/07/2022 of Medicine Future Scheduled 2022-03-07 SJOGREN'S SS-A AND Ordered: [facility] [employer] Test 12:22:04 SS-B ANTIBODIES [code 03/07/2022 of Med icine = NOCPT] Future Scheduled 2022-03-07 DNA (DS) ANTIBODY, Ordered: [facility] [employer] Test 12:22:04 CRITHIDIA IFA W/RX 03/07/2022 of Medici ne TITER [code = 6457-6] Future Scheduled 2022-03-07 COMPLEMENT C3 AND C4 Ordered: [facility] Test 12:22:04 [code = NOCPT] 03/07/2022 of Medicine Future Scheduled 2022-03-07 URINALYSIS, COMPLETE Ordered: [facility] Test 12:22:04 W/REFLEX TO CULTURE 03/07/2022 of Medic ine [code = 78099-5] Future Scheduled 2022-03-07 RANDOM URINE Ordered: [facility] Test 12:22:04 PROTEIN/CREATININE 03/07/2022 of Medici ne [code = 2890-2] Future Scheduled 2022-03-07 Pneumococcal Combined [facility] Test 11:56:57 (2 - PPSV23 or PCV20) of Med icine [code = Pneumococcal Combined (2 - PPSV23 or PCV20)] Future Scheduled 2022-03-07 MEDICARE AWV (Initial) [facility] Test 11:56:57 [code = MEDICARE AWV of WISHI (Initial)] Future Scheduled 2022-03-07 Screening for [facility] Test 11:56:57 malignant neoplasm of of Med icine colon (procedure) [code = 088299566] Future Scheduled 2022-03-07 COVID-19 Vaccine (3 - [facility] Test 11:56:57 Moderna risk series) of WISHI [code = COVID-19 Vaccine (3 - Moderna risk series)] Future Scheduled 2022-03-07 FLU VACCINE > 6 MONTHS Postponed from [facility] Test 11:56:57 [code = FLU VACCINE > 01/22/2022 of Med icine 6 MONTHS] (Postpone Reason: Patient declined today) Future Scheduled 2022-03-07 BMI FOLLOW UP PLAN [employer] Test 11:56:57 [code = BMI FOLLOW UP of Med icine PLAN] Future Scheduled 2022-03-07 Screening for [facility] Test 11:56:57 malignant neoplasm of of Med icine breast (procedure) [code = 902545206] Future Scheduled 2022-03-07 Screening for [facility] Test 11:56:57 malignant neoplasm of of Med icine cervix (procedure) [code = 509165212] Future Scheduled 2022-03-07 TETANUS SHOT (ADULT) [employer] [employer] Test 11:56:57 [code = TETANUS SHOT of Medi cine (ADULT)] Future Scheduled 2022-03-06 MRI CERVICAL SPINE WO 1 Occurrences [facility] [employer] Test 14:50:01 CONTRAST [code = starting of Medicine 00015-8] 03/06/2022 until 03/06/2023 Future Scheduled 2022-02-22 INFLUENZA [...] (#1)] Future Scheduled 2022-02-21 Human immunodeficiency [facility] [employer] Test 12:57:58 virus screening of Medicine (procedure) [code = 771736795] Future Scheduled 2022-02-21 Pneumococcal Combined [facility] [employer] Test 12:57:58 (2 - PPSV23 or PCV20) of Med icine [code = Pneumococcal Combined (2 - PPSV23 or PCV20)] Future Scheduled 2022-02-21 MEDICARE AWV (Initial) [facility] [employer] Test 12:57:58 [code = MEDICARE AWV of Medi cine (Initial)] Future Scheduled 2022-02-21 Screening for [facility] Test 12:57:58 malignant neoplasm of of Med icine colon (procedure) [code = 902145928] Future Scheduled 2022-02-21 COVID-19 Vaccine (3 - Ba or [place] Test 12:57:58 Moderna risk series) of Medi cine [code = COVID-19 Vaccine (3 - Moderna risk series)] Future Scheduled 2022-02-21 FLU VACCINE > 6 MONTHS Postponed from [facility] Test 12:57:58 [code = FLU VACCINE > 01/22/2022 of Med icine 6 MONTHS] (Postpone Reason: Patient declined today) Future Scheduled 2022-02-21 BMI FOLLOW UP PLAN [facility] Test 12:57:58 [code = BMI FOLLOW UP of Med icine PLAN] Future Scheduled 2022-02-21 Screening for [facility] Test 12:57:58 malignant neoplasm of of Med icine breast (procedure) [code = 157256207] Future Scheduled 2022-02-21 Screening for [facility] Test 12:57:58 malignant neoplasm of of Med icine cervix (procedure) [code = 860768329] Future Scheduled 2022-02-21 TETANUS SHOT (ADULT) [facility] Test 12:57:58 [code = TETANUS SHOT of Medi cine (ADULT)] Future Scheduled 2022-02-21 URINALYSIS, COMPLETE Ordered: [facility] Test 12:24:24 W/REFLEX TO CULTURE 02/21/2022 of Medic ine [code = 14631-2] Future Scheduled 2022-02-21 CBC W/AUTO DIFF WITH Ordered: [facility] Test 12:16:08 PLATELETS [code = 02/21/2022 of Medicin e 89468-6] Future Scheduled 2022-02-21 COMPREHENSIVE Ordered: [facility] Test 12:16:08 METABOLIC PANEL [code 02/21/2022 of Med icine = 87304-2] Future Scheduled 2022-01-28 Screening for [facility] Test 10:06:50 malignant neoplasm of of Med icine breast (procedure) [code = 570181339] Future Scheduled 2022-01-28 Human immunodeficiency [facility] Test 10:06:50 virus screening of Medicine (procedure) [code = 484743694] Future Scheduled 2022-01-28 Pneumococcal Combined [facility] Test 10:06:50 (2 - PPSV23 or PCV20) of Med icine [code = Pneumococcal Combined (2 - PPSV23 or PCV20)] Future Scheduled 2022-01-28 Screening for [facility] Test 10:06:50 malignant neoplasm of of Med icine colon (procedure) [code = 447003954] Future Scheduled 2022-01-28 COVID-19 Vaccine (3 - [facility] [employer] Test 10:06:50 Moderna risk series) of Medi cine [code = COVID-19 Vaccine (3 - Moderna risk series)] Future Scheduled 2022-01-28 FLU VACCINE > 6 MONTHS Postponed from [facility] Test 10:06:50 [code = FLU VACCINE > 01/22/2022 of Med icine 6 MONTHS] (Postpone Reason: Patient declined today) Future Scheduled 2022-01-28 BMI FOLLOW UP PLAN [facility] Test 10:06:50 [code = BMI FOLLOW UP of Med icine PLAN] Future Scheduled 2022-01-28 Screening for [facility] Test 10:06:50 malignant neoplasm of of Med icine cervix (procedure) [code = 663012420] Future Scheduled 2022-01-28 TETANUS SHOT (ADULT) [facility] Test 10:06:50 [code = TETANUS SHOT of Medi cine (ADULT)] Future Scheduled 2022-01-24 Screening for [facility] Test 12:15:08 malignant neoplasm of of Med icine breast (procedure) [code = 812876954] Future Scheduled 2022-01-24 Human immunodeficiency [facility] Test 12:15:08 virus screening of Medicine (procedure) [code = 428186367] Future Scheduled 2022-01-24 Pneumococcal Combined [facility] [employer] Test 12:15:08 (2 - PPSV23 or PCV20) of Med icine [code = Pneumococcal Combined (2 - PPSV23 or PCV20)] Future Scheduled 2022-01-24 Screening for [facility] Test 12:15:08 malignant neoplasm of of Med icine colon (procedure) [code = 643195986] Future Scheduled 2022-01-24 COVID-19 Vaccine (3 - [facility] [employer] Test 12:15:08 Moderna risk series) of Medi cine [code = COVID-19 Vaccine (3 - Moderna risk series)] Future Scheduled 2022-01-24 FLU VACCINE > 6 MONTHS Postponed from [facility] Test 12:15:08 [code = FLU VACCINE > 01/22/2022 of Med icine 6 MONTHS] (Postpone Reason: Patient declined today) Future Scheduled 2022-01-24 BMI FOLLOW UP PLAN [facility] [place] Test 12:15:08 [code = BMI FOLLOW UP of Med icine PLAN] Future Scheduled 2022-01-24 Screening for [facility] Test 12:15:08 malignant neoplasm of of Med icine cervix (procedure) [code = 569059046] Future Scheduled 2022-01-24 TETANUS SHOT (ADULT) [place] [facility] Test 12:15:08 [code = TETANUS SHOT of Medi cine (ADULT)] Future Scheduled 2022-01-23 Screening for [facility] Test 14:14:09 malignant neoplasm of of Med icine breast (procedure) [code = 190140255] Future Scheduled 2022-01-23 Human immunodeficiency [facility] Test 14:14:09 virus screening of Medicine (procedure) [code = 643711495] Future Scheduled 2022-01-23 Pneumococcal Combined [facility] Test 14:14:09 (2 - PPSV23 or PCV20) of Med icine [code = Pneumococcal Combined (2 - PPSV23 or PCV20)] Future Scheduled 2022-01-23 Screening for [facility] Test 14:14:09 malignant neoplasm of of Med icine colon (procedure) [code = 103282942] Future Scheduled 2022-01-23 COVID-19 Vaccine (3 - [facility] Test 14:14:09 Moderna risk series) of Medi cine [code = COVID-19 Vaccine (3 - Moderna risk series)] Future Scheduled 2022-01-23 FLU VACCINE > 6 MONTHS [facility] Test 14:14:09 [code = FLU VACCINE > of Med icine 6 MONTHS] Future Scheduled 2022-01-23 BMI FOLLOW UP PLAN [facility] Test 14:14:09 [code = BMI FOLLOW UP of Med icine PLAN] Future Scheduled 2022-01-23 Screening for [facility] Test 14:14:09 malignant neoplasm of of Med icine cervix (procedure) [code = 151726287] Future Scheduled 2022-01-23 TETANUS SHOT (ADULT) [employer] Test 14:14:09 [code = TETANUS SHOT of Medi cine (ADULT)] Future Scheduled 2021-11-26 Screening for [facility] Test 15:11:10 malignant neoplasm of of Med icine breast (procedure) [code = 094434941] Future Scheduled 2021-11-26 Human immunodeficiency [facility] [employer] Test 15:11:10 virus screening of Medicine (procedure) [code = 771439981] Future Scheduled 2021-11-26 Pneumococcal Combined [facility] [employer] Test 15:11:10 (2 - PPSV23 or PCV20) of Med icine [code = Pneumococcal Combined (2 - PPSV23 or PCV20)] Future Scheduled 2021-11-26 Screening for [facility] Test 15:11:10 malignant neoplasm of of Med icine colon (procedure) [code = 356032029] Future Scheduled 2021-11-26 COVID-19 Vaccine (3 - [...] icine PLAN] Future Scheduled 2021-11-26 Screening for [facility] Test 15:11:10 malignant neoplasm of of Med icine cervix (procedure) [code = 280947269] Future Scheduled 2021-11-26 TETANUS SHOT (ADULT) [employer] Test 15:11:10 [code = TETANUS SHOT of Medi cine (ADULT)] Future Scheduled 2021-11-23 STUDY TILT [code = 1 Occurrences [employer] Test 13:54:54 37087] starting of Medicine 11/23/2021 until 11/23/2022 Future Scheduled 2021-09-08 Screening for [facility] Test 14:45:55 malignant neoplasm of of Med icine breast (procedure) [code = 647820060] Future Scheduled 2021-09-08 BMI FOLLOW UP PLAN [employer] Test 14:45:55 [code = BMI FOLLOW UP of Med icine PLAN] Future Scheduled 2021-09-08 Human immunodeficiency [facility] [employer] Test 14:45:55 virus screening of Medicine (procedure) [code = 278934943] Future Scheduled 2021-09-08 Pneumococcal Combined [facility] Test 14:45:55 (2 of 4 - PPSV23) of Medicin e [code = Pneumococcal Combined (2 of 4 - PPSV23)] Future Scheduled 2021-09-08 Screening for [facility] Test 14:45:55 malignant neoplasm of of Med icine colon (procedure) [code = 748670597] Future Scheduled 2021-09-08 COVID-19 Vaccine (3 - [facility] Test 14:45:55 Moderna risk 4-dose of Medic ine series) [code = COVID-19 Vaccine (3 - Moderna risk 4-dose series)] Future Scheduled 2021-09-08 Screening for [facility] Test 14:45:55 malignant neoplasm of of Med icine cervix (procedure) [code = 776664388] Future Scheduled 2021-09-08 TETANUS SHOT (ADULT) [facility] Test 14:45:55 [code = TETANUS SHOT of Medi cine (ADULT)] Future Scheduled 2021-09-08 2019 CORONOVIRUS Ordered: [facility] Test 14:26:57 (COVID-19) ANTIBODY, 09/08/2021 of Medi cine IGG, (S) [code = NOCPT] Future Scheduled 2021-07-02 Screening for [facility] Test 05:39:12 malignant neoplasm of of Med icine breast (procedure) [code = 635498844] Future Scheduled 2021-07-02 BMI FOLLOW UP PLAN [facility] Test 05:39:12 [code = BMI FOLLOW UP of Med icine PLAN] Future Scheduled 2021-07-02 [facility] 05[facility] virus screening of Medicine (procedure) [code = 318425402] Future Scheduled 2021-07-02 Pneumococcal Combined Ba [facility] Test 05:39:12 (2 of 4 - PPSV23) of Medicin e [code = Pneumococcal Combined (2 of 4 - PPSV23)] Future Scheduled 2021-07-02 Screening for [facility] Test 05:39:12 malignant neoplasm of of Med icine colon (procedure) [code = 324460406] Future Scheduled 2021-07-02 Screening for [facility] Test 05:39:12 malignant neoplasm of of Med icine cervix (procedure) [code = 517063957] Future Scheduled 2021-07-02 TETANUS SHOT (ADULT) [employer] 05:39:12 [code = TETANUS SHOT of Medi cine (ADULT)] Future Scheduled 2021-06-27 PA OCCUPATIONAL Ordered: [facility] [employer] Test 13:19:30 THERAPY EVAL LOW 06/27/2021 of Medicine COMPLEX 30 MINS [code = 70405] Future Scheduled 2021-06-27 PA CANALITH Ordered: [facility] [employer] Test 13:19:30 REPOSITIONING 06/27/2021 of Medicine PROCEDURE, PER DAY [code = 59193] Future Scheduled 2021-06-27 Screening for [facility] [employer] Test 11:33:45 malignant neoplasm of of Med icine breast (procedure) [code = 026338626] Future Scheduled 2021-06-27 BMI FOLLOW UP PLAN [employer] Test 11:33:45 [code = BMI FOLLOW UP of Med icine PLAN] Future Scheduled 2021-06-27 [facility] Test 11:33:45 virus screening of Medicine (procedure) [code = 286825396] Future Scheduled 2021-06-27 Pneumococcal Combined [employer] Test 11:33:45 (2 of 4 - PPSV23) of Medicin e [code = Pneumococcal Combined (2 of 4 - PPSV23)] Future Scheduled 2021-06-27 Screening for [facility] [employer] Test 11:33:45 malignant neoplasm of of Med icine colon (procedure) [code = 745280293] Future Scheduled 2021-06-27 Screening for [facility] [employer] Test 11:33:45 malignant neoplasm of of Med icine cervix (procedure) [code = 552189646] Future Scheduled 2021-06-27 TETANUS SHOT (ADULT) [employer] 11:33:45 [code = TETANUS SHOT of Medi cine (ADULT)] Future Scheduled 2021-05-03 Screening for [facility] [employer] Test 13:26:26 malignant neoplasm of of Med icine breast (procedure) [code = 907539580] Future Scheduled 2021-05-03 BMI FOLLOW UP PLAN [employer] 13:26:26 [code = BMI FOLLOW UP of Med icine PLAN] Future Scheduled 2021-05-03 Human immunodeficiency [employer] Test 13:26:26 virus screening of Medicine (procedure) [code = 359981806] Future Scheduled 2021-05-03 Screening for [facility] [employer] Test 13:26:26 malignant neoplasm of of Med icine colon (procedure) [code = 437282811] Future Scheduled 2021-05-03 Screening for [facility] [employer] Test 13:26:26 malignant neoplasm of of Med icine cervix (procedure) [code = 477429600] Future Scheduled 2021-05-03 TETANUS SHOT (ADULT) [employer] 13:26:26 [code = TETANUS SHOT of Medi cine (ADULT)] Future Scheduled 2021-05-03 CBC W/AUTO DIFF WITH Ordered: [employer] 11:50:49 PLATELETS [code = 05/03/2021 of Medicin e 01943-3] Future Scheduled 2021-05-03 COMPREHENSIVE Ordered: [facility] [employer] 11:50:49 METABOLIC PANEL [code 05/03/2021 of Med icine = 01908-1] Future Scheduled 2021-05-03 SEDIMENTATION RATE Ordered: [employer] 11:50:49 MODIFIED AREN 05/03/2021 of Medic ine [code = 4537-7] Future Scheduled 2021-05-03 C-REACTIVE PROTEIN Ordered: [employer] 11:50:49 [code = 1988-5] 05/03/2021 of Medicine Future Scheduled 2021-05-03 QUANTIFERON TB GOLD Ordered: [employer] 11:50:49 PLUS 4 TUBES [code = 05/03/2021 of Medi cine 14273-2] Future Scheduled 2021-03-08 Screening for [facility] [employer] Test 00:12:52 malignant neoplasm of of Med icine breast (procedure) [code = 609033116] Future Scheduled 2021-03-08 BMI FOLLOW UP PLAN [employer] 00:12:52 [code = BMI FOLLOW UP of Med icine PLAN] Future Scheduled 2021-03-08 Human immunodeficiency [facility] Test 00:12:52 virus screening of Medicine (procedure) [code = 098356580] Future Scheduled 2021-03-08 FLU VACCINE > 6 MONTHS [employer] 00:12:52 [code = FLU VACCINE > of Med icine 6 MONTHS] Future Scheduled 2021-03-08 Screening for [facility] [employer] Test 00:12:52 malignant neoplasm of of Med icine colon (procedure) [code = 009205320] Future Scheduled 2021-03-08 Screening for [facility] [employer] Test 00:12:52 malignant neoplasm of of Med icine cervix (procedure) [code = 857685884] Future Scheduled 2021-03-08 TETANUS SHOT (ADULT) [employer] 00:12:52 [code = TETANUS SHOT of Medi cine (ADULT)] Future Scheduled 2021-03-08 Screening for [facility] [employer] Test 00:12:52 malignant neoplasm of of Med icine breast (procedure) [code = 429092223] Future Scheduled 2021-03-08 BMI FOLLOW UP PLAN [employer] 00:12:52 [code = BMI FOLLOW UP of Med icine PLAN] Future Scheduled 2021-03-08 Human immunodeficiency [employer] 00:12:52 virus screening of Medicine (procedure) [code = 021430224] Future Scheduled 2021-03-08 FLU VACCINE > 6 MONTHS [employer] 00:12:52 [code = FLU VACCINE > of Med icine 6 MONTHS] Future Scheduled 2021-03-08 Screening for [facility] [employer] Test 00:12:52 malignant neoplasm of of Med icine colon (procedure) [code = 997523549] Future Scheduled 2021-03-08 Screening for [facility] [employer] Test 00:12:52 malignant neoplasm of of Med icine cervix (procedure) [code = 288445511] Future Scheduled 2021-03-08 TETANUS SHOT (ADULT) [employer] 00:12:52 [code = TETANUS SHOT of Medi cine (ADULT)] Future Scheduled 2020-12-02 CBC W/AUTO DIFF WITH Ordered: [employer] 11:55:43 PLATELETS [code = 12/02/2020 of Medicin e 86521-6] Future Scheduled 2020-12-02 COMPREHENSIVE Ordered: [employer] [employer] 11:55:43 METABOLIC PANEL [code 12/02/2020 of Med icine = 96893-4] Future Scheduled 2020-12-02 Screening for [facility] [employer] Test 11:34:58 malignant neoplasm of of Med icine breast (procedure) [code = 309450139] Future Scheduled 2020-12-02 BMI FOLLOW UP PLAN [employer] 11:34:58 [code = BMI FOLLOW UP of Med icine PLAN] Future Scheduled 2020-12-02 Human immunodeficiency [employer] 11:34:58 virus screening of Medicine (procedure) [code = 624591253] Future Scheduled 2020-12-02 FLU VACCINE > 6 MONTHS [employer] 11:34:58 [code = FLU VACCINE > of Med icine 6 MONTHS] Future Scheduled 2020-12-02 Screening for [facility] [employer] [facility] 11:34:58 malignant neoplasm of of Med icine colon (procedure) [code = 359963266] Future Scheduled 2020-12-02 Screening for [facility] [employer] 11:34:58 malignant neoplasm of of Med icine cervix (procedure) [code = 832515874] Future Scheduled 2020-12-02 TETANUS SHOT (ADULT) [employer] 11:34:58 [code = TETANUS SHOT of Medi cine (ADULT)] Future Scheduled 2020-11-14 Screening for [facility] [employer] Test 09:41:53 malignant neoplasm of of Med icine breast (procedure) [code = 454825459] Future Scheduled 2020-11-14 BMI FOLLOW UP PLAN [employer] 09:41:53 [code = BMI FOLLOW UP of Med icine PLAN] Future Scheduled 2020-11-14 Human immunodeficiency [employer] 09:41:53 virus screening of Medicine (procedure) [code = 682083569] Future Scheduled 2020-11-14 FLU VACCINE > 6 MONTHS [employer] 09:41:53 [code = FLU VACCINE > of Med icine 6 MONTHS] Future Scheduled 2020-11-14 Screening for [facility] [employer] 09:41:53 malignant neoplasm of of Med icine colon (procedure) [code = 013603497] Future Scheduled 2020-11-14 Screening for [facility] [employer] [facility] 09:41:53 malignant neoplasm of of Med icine cervix (procedure) [code = 027344255] Future Scheduled 2020-11-14 TETANUS SHOT (ADULT) [employer] 09:41:53 [code = TETANUS SHOT of Medi cine (ADULT)] Diagnostic Test 2019-04-13 [LH] GC/CT by Amp Det [facility] 00:00:00 (APTIMA) [code = [LH] GC/CT by Amp Det (APTIMA)] Diagnostic Test 2019-04-09 Colonoscopy [code = [facility] 00:00:00 [id number]] Diagnostic Test 2019-04-09 Colonoscopy [code = [facility] 00:00:00 [id number]] Diagnostic Test 2019-04-09 Colonoscopy [code = [facility] 00:00:00 [id number]] Diagnostic Test 2019-04-08 MR Shoulder wo [facility] 00:[facility]:00 contrast 15079 [code = 65017] Diagnostic Test 2019-04-08 MR Shoulder wo [facility] 00:00:00 contrast 03508 [code = 67519] Diagnostic Test 2019-03-30 Colonoscopy [facility]code [facility] 00:00:00 [id number]] Diagnostic Test 2019-03-30 Colonoscopy [facility]code [facility] 00:00:00 [id number]] Diagnostic Test 2019-03-30 Colonoscopy [code = [facility] 00:00:00 [id number]] Diagnostic Test 2019-03-30 Colonoscopy [code = [facility] 00:00:00 [id number]] Diagnostic Test 2019-01-14 Complete PFTs w/DLCO [facility] 00:00:00 and Lung Volumes [code = Complete PFTs w/DLCO and Lung Volumes] Diagnostic Test 2019-01-14 [facility] Sleep Lab - Sleep [facility] 00:00:00 Study Split Night [code = [facility] Sleep Lab - Sleep Study Split Night] Diagnostic Test 2019-01-14 [N] 2D Echo complete, [facility] 00:00:00 with Doppler 16359 [code = [N] 2D Echo complete, with Doppler 11599] Diagnostic Test 2019-01-14 [facility] - [facility] 00:00:00 Study Split Night [code = [facility] Sleep Lab - Sleep Study Split Night] Diagnostic Test 2019-01-14 Complete PFTs w[facility]CO [facility] 00:00:00 and Lung Volumes [code = Complete PFTs w/DLCO and Lung Volumes] Diagnostic Test 2019-01-14 [facility] 00:00:00 Study Split Night [code = [facility] Sleep Lab - Sleep Study Split Night] Diagnostic Test 2019-01-14 [N] 2D Echo complete, [facility] 00:00:00 with Doppler 11055 [code = [N] 2D Echo complete, with Doppler 13893] Future Scheduled [address] [facility] Test 00:00:00 malignant neoplasm of Medica l Center cervix (procedure) [code = 826088020] Future Scheduled [address] [facility] Test 00:00:00 malignant neoplasm of Medica l Center cervix (procedure) [code = 437870163] Future Scheduled [address] [facility] [facility] Test 00:00:00 malignant neoplasm of Medica l Center cervix (procedure) [code = 364246744] Future Scheduled [address] [facility] Test 00:00:00 malignant neoplasm of Medica l Center cervix (procedure) [code = 835339519] Future Scheduled 1998 HEPATITIS C SCREENING CH [...] RATE Ordered: [employer] MODIFIED [facility] 05/12/2020 of Medic ine [code = 4537-7] Future Scheduled HLA-B27 ANTIGEN [code Ordered: [employer] = 38736] 05/12/2020 of Medicine Future Scheduled HEPATITIS B SURFACE AB Ordered: [employer] QUANT [code = 20025-1] 05/12/2020 of [place] Future Scheduled HEPATITIS B SURFACE Ordered: [employer] ANTIGEN [code = 05/12/2020 of Medicine 5196-1] Future Scheduled HEPATITIS B CORE AB Ordered: [employer] TOTAL W/REFL IGM [code 05/12/2020 of Ks dicine = 68829-6] Future Scheduled HEPATITIS C ANTIBODY Ordered: [employer] [code = 82390-7] 05/12/2020 of Medicine Future Scheduled QUANTIFERON TB GOLD Ordered: [facility] or [employer] Test PLUS 4 TUBES [code = 05/12/2020 of Medi cine 31092-8] Future Scheduled BMI FOLLOW UP PLAN [employer] Test [code = BMI FOLLOW UP of Med icine PLAN] Future Scheduled HEPATITIS C SCREENING [employer] Test [code = HEPATITIS C of Medic ine SCREENING] Future Scheduled HIV SCREENING [code = [employer] HIV SCREENING] of Medicine Future Scheduled CERVICAL CANCER [facility] C ollege Test SCREENING 3 YEAR of Medicine FOLLOW UP [code = CERVICAL CANCER SCREENING 3 YEAR FOLLOW UP] Future Scheduled COLON CANCER [facility] De[facility] [employer] Test SCREENING: COLONOSCOPY of Me dicine [code = COLON CANCER SCREENING: COLONOSCOPY] Future Scheduled TETANUS SHOT (ADULT) [employer] Test [code = TETANUS SHOT of Medi cine (ADULT)] Future Scheduled C3 COMPLEMENT [code = Ordered: [employer] 4485-9] 05/12/2020 of Medicine Future Scheduled C4 COMPLEMENT [[facility] = [facility] 05/12/2020 of Medicine Future Scheduled CBC W/AUTO DIFF WITH Ordered: [facility] Test PLATELETS [code = 05/12/2020 of Medicin e 13993-9] Future Scheduled COMPREHENSIVE Ordered: [facility]ge Test METABOLIC PANEL [code 05/12/2020 of Med icine = 82335-5] Future Scheduled TRYPTASE [code = Ordered: [facility] Test 11114] 05/12/2020 of Medicine Future Scheduled TSH [code = 68130-1] Ordered: [facility] Test 05/12/2020 of Medicine Future Scheduled BMI FOLLOW UP PLAN [employer] [facility] [code = BMI FOLLOW UP of Med icine PLAN] Future Scheduled HEPATITIS C SCREENING [employer] Test [code = HEPATITIS C of Medic ine SCREENING] Future Scheduled HIV SCREENING [code = [employer] HIV SCREENING] of Medicine Future Scheduled CERVICAL CANCER [facility] C ollege Test SCREENING 3 YEAR of Medicine FOLLOW UP [code = CERVICAL CANCER SCREENING 3 YEAR FOLLOW UP] Future Scheduled COLON CANCER [facility] De[facility] [employer] Test SCREENING: COLONOSCOPY of Me dicine [code = COLON CANCER SCREENING: COLONOSCOPY] Future Scheduled TETANUS SHOT (ADULT) [employer] Test [code = TETANUS SHOT of Medi cine (ADULT)] Future Scheduled MAMMOGRAM ANNUAL [code [facility] Test = MAMMOGRAM ANNUAL] of Medic ine Future Scheduled BMI FOLLOW UP PLAN [facility] r College Test [code = BMI FOLLOW UP of Med icine PLAN] Future Scheduled HEPATITIS C SCREENING [employer] [facility] [code = HEPATITIS C of Medic ine SCREENING] Future Scheduled HIV SCREENING [code = [employer] HIV SCREENING] of Medicine Future Scheduled CERVICAL CANCER [facility] C ollege Test SCREENING 3 YEAR of Medicine FOLLOW UP [code = CERVICAL CANCER SCREENING 3 YEAR FOLLOW UP] Future Scheduled COLON CANCER [facility] [employer] Test SCREENING: COLONOSCOPY of Me dicine [code = COLON CANCER SCREENING: COLONOSCOPY] Future Scheduled TETANUS SHOT (ADULT) [facility] Test [code = TETANUS SHOT of Medi cine (ADULT)] Future Scheduled MRI SACRUM WO CONTRAST 1 Occurrences [facility] Test [code = 85172] starting of Medicine 05/12/2020 until 05/12/2021 Encounters Start End Encounter Admission Attending Care Care Encounter Source Date/Time Date/Time Type Type Clinicians Facility Department ID 2021-12-21 Outpatient WILDER MCCOY Surgery [id number] [facility] 11:10:36 [facility] 2021-11-15 Outpatient JANICE MCCOY Surgery [id number] [facility] 13:45:13 [facility] 2021-11-15 Outpatient WILDER MCCOY Surgery [id number] [facility] 13:26:29 [facility] 2021-09-15 Outpatient SHEIKH SLSSang Surgery [id number] [facility] 08:29:40 [facility] 2021-08-17 Outpatient SHEIKH [facility] Surgery [id number] [facility] 11:05:11 [facility] 2021-03-31 Outpatient TOPHER SLE Surgery [id number] [facility] 23[facility]55:24 [facility] 2021-03-31 Outpatient TOPHER, [facility] Surgery [id number] [facility] 23:55:19 [facility] 2021-03-29 Outpatient KALINA [facility] Surgery [id number] [facility] 03:49:[address] [facility] 2021-03-29 Outpatient NACHOAPWILDER NGUYEN Surgery [id number] [facility] 03:04:[address] [facility] 2020-11-14 Outpatient [facility] [id number] [place] 16:18:38 [facility] 2020-10-29 [facility] [id number] [place] 02:42:50 [facility] 2019-10-23 Outpatient NELSON, [facility] [id number] [facility] 07:24:40 ELOISE 2022-07-26 2022-07-26 Outpatient JUAN DANIEL [facility] [id number] [facility] 15:02:08 16:21:14 JOSE ANTONIO RAINEY lege of Medicin e 2022-07-26 2022-07-26 Outpatient EMPERATRIZ [facility] [id number] [facility] 11:49:08 15:54:16 [employer] [employer] of Medicin e 2022-07-20 2022-07-20 Outpatient DENNIS [facility] [id number] [facility] 12:51:39 13:14:04 [place] [employer] [facility] [employer] [employer] 2022-07-18 2022-07-19 Outpatient MARK SCHAEFFER [facility] [id number] [facility] 11:41:32 13:55:04 Colleg [facility] of Medicin e 2022-07-19 2022-07-19 [facility] [id number] [facility] 11:40:00 12:00:00 Visit Mulu SPECIALTY [id number] ity of [facility] [id number] [facility] AT [id number] [address] 2022-07-19 2022-07-19 [facility] [id number] Univers 11:40:00 11:40:00 MULU ity [facility] 2022-07-07 2022-07-15 [facility] Surgery [id number] [facility] 21:57:00 15:03:00 [facility] 2022-07-07 2022-07-15 [facility] ER [facility] [id number] 21:57:00 15:03:00 Encounter [facility] 2022-07-07 2022-07-15 [facility] [id number] 21:57:00 15:03:00 Encounter [facility] 2022-07-15 2022-07-15 Orders Ashlyn, [facility] [id number] 00:00:00 00:00:00 Only [facility] 2022-07-15 2022-07-15 Orders Ashlyn, [facility] [id number] 00:00:00 00:00:00 Only [facility] 2022-07-12 2022-07-12 Outpatient ABRAHAM, [facility] [id number] [facility] 00:00:00 00:00:00 TRACIE caballero of Medicin e 2022-07-10 2022-07-10 Anesthesia Smith-Eng [facility] [id number] [facility] 17:17[facility]17[facility] 2022-07-10 Anesthesia Smith-Eng [facility] [id number] [facility] 17:17[facility]17[facility]00 [facility] 2022-07-10 2022-07-10 Surgery Virtual, [facility] [id number] 12:35:00 12:54:00 [facility] 2022-07-10 2022-07-10 Surgery Virtual, [facility] [id number] 12:35:00 12:54:00 [facility] 2022-07-06 2022-07-06 Emergency [facility], [facility] Emergency [id number] [facility] 11:06:00 14:27:00 [place] 2022-07-06 2022-07-06 Emergency ER Surles, [facility] [id number] 11:06:00 14:27:00 [facility] 2022-07-06 2022-07-06 Emergency Surles, [facility] [id number] 11:06:00 14:27:00 [facility] 2022-07-06 2022-07-06 Outpatient GWYN, [facility] [id number] [facility] 10:18:07 10:18:07 [employer] [employer] [facility] 2022-07-06 2022-07-06 Travel [facility] [id number] [facility] 00:00:00 00:00:00 [facility] 2022-07-06 2022-07-06 Travel [facility] [id number] [facility] 00:00:00 00:00:00 [facility] 2022-07-05 2022-07-05 Outpatient GRACE [facility] [id number] [facility] 13:49:31 13:55:53 [place] [employer] 2022-07-05 2022-07-05 Outpatient PARISH FAM [facility] [id number] [facility] 10:16:37 12:36:35 Colleg [facility] of Medicin e 2022-07-04 2022-07-04 [facility] [id number] [facility] 15:27:43 23:59:00 [id number] [facility] [id number] [address] 2022-07-04 2022-07-04 Outpatient Marion [facility] [id number] [facility] 14:31:58 15:26:00 KERRY valdez [facility] 2022-07-04 2022-07-04 [facility] [id number] [facility] 14:15:00 15:26:00 Encounter Kerry [id number] [facility] [id number] [facility] [id number] [address] 2022-07-03 2022-07-03 Outpatient [facility] [id number] [facility] 10:46:32 14:12:19 Colleg e of Medicin e 2022-07-03 2022-07-03 Outpatient CLEMENTE [facility] [id number] [facility] 09:08:44 11:18:15 THOMAS mendoza of Medicin e 2022-07-02 2022-07-02 Outpatient Marion [facility] [id number] [facility] 13:00:00 13:00:00 JHOANA ity [facility] 2022-06-29 2022-06-29 Outpatient R YULIET [facility] [id number] [facility] 13:47:53 23:59:00 KERRY ity [facility] 2022-06-29 2022-06-29 [facility] [id number] [facility] 13:47:53 23:59:00 Encounter Kerry CINDY [id number] ity of [place] [id number] [facility] [id number] [facility] [address] 2022-06-29 2022-06-29 Office [facility] [id number] [facility] 09:30:00 10:00:00 Visit Kerry FLORES [id number] it y of [place] [id number] [facility] [id number] [facility] 2001 [address] OFFICE BUILDING 2022-06-28 2022-06-28 Outpatient TORIE DONOHUE [facility] [id number] [facility] 16:45:03 16:49:48 Arcelia caballero of Medicin e 2022-06-28 2022-06-28 Outpatient R ELROY, [facility] [id number] [facility] 12:00:00 12:00:00 ATTENDING ity [facility] 2022-06-22 2022-06-22 Outpatient R ROSY [facility] [id number] Univers 15:50:00 15:50:00 SYDNIE [facility] 2022-06-21 2022-06-21 Outpatient MEG [facility] [id number] [facility] 15:13:56 15:34:24 , PERCY caballero of Medicin e 2022-06-20 2022-06-21 Inpatient ANDI FRANCES [facility] Surgery [id number] [facility] 05:43:00 15:01:00 JOSE ANTONIO RAINEY 2022-06-20 2022-06-21 [facility] ANDI Frances [facility] [id number] [facility] 05:43:00 15:01:00 Encounter Jose Antonio rainey [facility] 2022-06-20 2022-06-21 [facility] [id number] 05:43:00 15:01:00 Encounter Jose Antonio rainey [facility] 2022-06-20 2022-06-20 Outpatient [facility] [id number] [facility] 05:43:00 23:59:00 Karlie Medicin e 2022-06-20 2022-06-20 Anesthesia Kerrie [facility] [id number] 10:49:00 12:26:00 Event Alejandro [facility] 2022-06-20 2022-06-20 Anesthesia Kerrie Benjamin [facility] [id number] 10:49:00 12:26:00 Event Alejandro [facility] 2022-06-20 2022-06-20 Surgery [facility] [id number] 10:10:00 12:10:00 Jose Antonio rainey [facility] 2022-06-20 2022-06-20 [facility] [id number] 10:10:00 12:10:00 Jose Antonio rainey [facility] 2022-06-20 2022-06-20 Travel [facility] [id number] [facility] 00:00:00 00:00:00 [facility] 2022-06-20 2022-06-20 Travel [facility] [id number] [facility] 00:00:00 00:00:00 [facility] 2022-06-19 2022-06-19 Outpatient Marion DUNN [facility] [id number] [facility] 13:14:16 23:59:[address] [facility] 2022-06-19 2022-06-19 [facility] [id number] [facility] 13:14:16 23:59:00 Encounter Leela WHITE [id number] josé miguel [facility] [id number] [facility] [id number] [place] [address] [address] 2022-06-19 2022-06-19 Outpatient [facility] [id number] [facility] 00:00:00 23:59:00 [employer] 2022-06-19 2022-06-19 Emergency ER [facility] Emergency 20 [id number] SLE 18:33:00 20:49:00 , [facility] 2022-06-19 2022-06-19 Emergency [facility] [id number] [facility] 18:33:00 20:49:00 , [facility] 2022-06-19 2022-06-19 Emergency [facility] [id number] [facility] 18:33:00 20:49:00 , [facility] 2022-06-19 2022-06-19 Outpatient YONISCliff, [facility] [id number] [facility] 13:07:41 14:06:37 MITA [employer] 2022-06-19 2022-06-19 Orders [facility] [id number] 00:00:00 00:00:00 Only [facility] 2022-06-19 2022-06-19 Travel [facility] [id number] [facility] 00:00:00 00:00:00 [facility] 2022-06-19 2022-06-19 Orders [facility] [id number] 00:00:00 00:00:00 Only [facility] 2022-06-19 2022-06-19 Travel [facility] [id number] [facility] 00:00:00 00:00:00 [facility] 2022-06-19 2022-06-19 Telephone Rosy IAJUANITO 1.2.840.114 [id number] Univers 00:00:00 00:00:00 Sydnie PRIMARY 350.1.13.10 it y of CARE 4.2.7.2.686 Alfonso CANO [id number] K[place] dical [address] 2022-06-18 2022-06-18 Telephone Mona [facility] 1.2.217.729 [id number] Univers 00:00:00 00:00:00 LeelaRoyalCactus 350.1.13.10 it y of [place] 4.2.7.2.686 Tim as SILVER?BLEA [id number] Ks dical KNEY [address] MEDICAL OFFICE BUILDING 2022-06-18 2022-06-18 Nurse ZIYAD Mendenhall 1.2.840.114 [id number] Univers 00:00:00 00:00:00 Triage Axel T TI 350.1.13.10 ity of [facility] 4.2.7.2.686 Tim as [id number] [address] 2022-06-15 2022-06-15 Hospital [facility] 1.2.840.114 [id number] Univers 15:50:58 23:59:00 Encounter Sydnie PRIMARY 350.1.13.10 ity of C[place] 4.2.7.2.686 [place] [id number] [place] dical [address] 2022-06-15 2022-06-15 Office [facility] 1.2.581.080 [id number] Univers 16:00:00 17:05:05 Visit Sydnie PRIMARY 350.1.13.10 it y of [place] 4.2.7.2.[place] [id number] [facility] [address] 2022-06-15 2022-06-15 Outpatient R [facility] [id number] Univers 16:00:00 17:05:[address] [facility] 2022-06-14 2022-06-14 Outpatient [facility] SLE [id number] SLE 12:55:31 23:59:00 JOSE ANTONIO RAINEY 2022-06-14 2022-06-14 [facility] [id number] 12:30:00 23:59:00 Encounter Jose Antonio rainey [facility] 2022-06-14 2022-06-14 [facility] [id number] [id number] 12:30:00 23:59:00 Encounter Jose Antonio rainey [facility] 2022-06-14 2022-06-14 Outpatient EL [facility]H [facility]H [id number] [facility]H 12:54:40 12:54:40 2022-06-14 2022-06-14 Telephone Mona IAJUANITO 1.2.760.581 [id number] Univers 00:00:00 00:00:00 Edmodo 350.1.13.10 it y of [place] 4.2.7.2.686 Tim as SILVER?BLEA [id number] [facility] [address] MEDICAL OFFICE BUILDING 2022-06-14 2022-06-14 Orders Doctor ZIYAD 1.2.840.114 [id number] Univers 00:00:00 00:00:00 Only Unassigned, TI 350.1.13.10 ity of [facility] 4.2.7.2.686 Tim as [id number] [address] 2022-06-13 2022-06-13 Outpatient MICHELLE VAZQUEZ [facility] [id number] [facility] 14:02:40 15:56:43 HAYLEY Ziegler Medicin e 2022-06-13 2022-06-13 Outpatient EL SLEH SLEH [id number] [facility] 00:00:00 00:00:00 2022-06-12 2022-06-12 Outpatient EL SLEH SLEH [id number] [facility]H 12:40:38 23:59:00 2022-06-12 2022-06-12 [facility] [id number] 12:40:38 23:59:00 [facility]counter [facility] 2022-06-12 2022-06-12 [facility] [id number] 12:40:38 23:59:00 Encounter [facility] 2022-06-12 2022-06-12 Outpatient EL SLEH SLEH [id number] [facility] 00:00:00 00:00:00 2022-06-11 2022-06-11 Outpatient R MONA [facility] [id number] Univers 13:00:00 15:24:33 LEELA valdez [facility] 2022-06-11 2022-06-11 Office Mona [facility] 1.2.840.114 [id number] Univers 13:00:00 15:24:33 Visit Edmodo 350.1.13.10 it y of [place] 4.2.7.2.686 Tim as SILVER?BLEA [id number] Ks ken DUARTE 2 [facility] OFFICE [facility] 2022-06-07 2022-06-07 Outpatient JUAN DANIEL [facility] [id number] [facility] 14:20:48 14:20:48 JOSE ANTONIO RAINEY lege of Medicin e 2022-06-07 2022-06-07 Outpatient PARISH FAM [facility] [id number] [facility] 10:33:34 13:37:25 [facility] 2022-06-07 2022-06-07 Outpatient ABRAHAM [facility] [id number] [facility] 09:51:13 09:58:38 TRACIE [facility] [employer] [employer] 2022-06-06 2022-06-06 [facility] [id number] Univers 07:30:00 23:59:00 [facility] ity o f [facility] 2022-06-06 2022-06-06 [facility] 1.2.840.114 [id number] Univers 07:30:00 23:59:00 Encounter [facility] 350.1.13.10 ity of [place] 4.2.7.2.686 Alfonso SANDOVAL [id number] [address] OFFICE [facility] 2022-06-04 2022-06-04 Outpatient Marion DUNN [facility] [id number] Univers 13:00:00 13:00:[address] [facility] 2022-05-31 2022-05-31 Outpatient [facility] [id number] [facility] 10:05:58 10:05:58 [facility]in [facility] 2022-05-30 2022-05-30 Outpatient MARK SCHAEFFER [facility] [id number] [facility] 13:52:35 13:52:35 [facility]in [facility] 2022-05-25 2022-05-25 Outpatient MEG [facility] [id number] [facility] 12:47:54 13:07:42 , PERCY Paniagua e of Medicin e 2022-05-25 2022-05-25 Outpatient MEG [facility] [id number] [facility] 00:00:00 00:00:00 , PERCY Paniagua e of Medicin e 2022-05-22 2022-05-22 Outpatient JUAN DANIEL [facility] [id number] [facility] 09:12:51 09:30:39 JOSE ANTONIO RAINEY lege of Medicin e 2022-05-09 2022-05-10 Outpatient ANGEL, [facility] [id number] [facility] 12:46:30 09:37:55 PARAM-TEGAN Deangelo ege of Medicin e 2022-05-09 2022-05-09 Surgery Pascal, [facility] [id number] 15:00:00 15:30:00 [facility] 2022-05-09 2022-05-09 Surgery Pascal, [facility] [id number] 15:00:00 15:30:00 [facility] 2022-05-09 2022-05-09 Outpatient [facility] Surgery [id number] [facility] 14:49:00 15:20:00 [facility] 2022-05-09 2022-05-09 [facility] [id number] 14:49:00 15:20:00 Encounter [facility] 2022-05-09 2022-05-09 [facility] [id number] 14:49:00 15:20:00 Encounter [facility] 2022-05-07 2022-05-08 Outpatient PASCAL, [facility] [id number] [facility] 12:51:13 12:54:08 ILIA [facility] [employer] 2022-05-07 2022-05-08 Outpatient PASCAL, [facility] [id number] [facility] 12:48:58 12:51:03 ILIA [facility] 2022-05-07 2022-05-07 Outpatient [facility] [id number] [facility] 11:29:00 23:59:00 Arcelia caballero of Medicin e 2022-05-07 2022-05-07 Outpatient EL PASCAL, [facility] Surgery [id number] [facility] 11:29:00 16:44:00 [facility] 2022-05-07 2022-05-07 [facility] [id number] 11:29:00 16:44:00 Encounter [facility] 2022-05-07 2022-05-07 [facility] [id number] 11:29:00 16:44:00 Encounter [facility] 2022-05-07 2022-05-07 [facility] [id number] 14:52:00 15:33:00 Event [facility] 2022-05-07 2022-05-07 Anesthesia Aveljorge [facility] [id number] 14:52:00 15:33:00 Event [facility] 2022-05-07 2022-05-07 Surgery Pascal, [facility] [id number] 12:30:00 13:30:00 [facility] 2022-05-07 2022-05-07 Surgery Pascal, [facility] [id number] 12:30:00 13:30:00 [facility] 2022-05-07 2022-05-07 Travel [facility] [id number] [facility] 00:00:00 00:00:00 [facility] 2022-05-07 2022-05-07 Travel [facility] [id number] [facility] 00:00:00 00:00:00 [facility] 2022-05-03 2022-05-03 Outpatient JUAN DANIEL [facility] [id number] [facility] 11:29:56 11:54:32 JOSE ANTONIO RAINEY of Medicin e 2022-05-02 2022-05-02 Outpatient [facility] [id number] SLE 12:26:15 23:59:00 2022-05-02 2022-05-02 [facility] [id number] 11:50:00 23:59:00 Encounter [facility] 2022-05-02 2022-05-02 [facility] [id number] 11:50:00 23:59:00 Encounter [facility] 2022-05-02 2022-05-02 Travel [facility] [id number] [facility] 00:00:00 00:00:00 [facility] 2022-05-02 2022-05-02 Travel [facility] [id number] [facility] 00:00:00 00:00:00 [facility] 2022-05-01 2022-05-01 Outpatient [facility] [id number] [facility] 14:27:52 15:27:22 Arcelia caballero of Medicin e 2022-04-30 2022-04-30 Office JONATHAN [facility] 1.2.840.114 [id number] [facility] 09:04:45 10:18:53 Visit SUNTHOSH AMBULATOR 350.1.13.21 College Y 0.2.7.2.686 of [id number] Medi mari 800 e 2022-04-24 2022-04-24 Office MINGO SHAFFER [facility] 1.2.840.114 [id number] [facility] 13:03:24 13:58:01 Visit AMBULATOR 350.1.13.21 College Y 0.2.7.2.686 of [id number] Medi mari 800 e 2022-04-19 2022-04-19 Outpatient HUDSON [facility] [id number] [facility] 11:42:46 11:52:01 Elsi KEARNS of Medicin e 2022-04-09 2022-04-09 Office JOSE LUIS [facility] 1.2.840.114 [id number] [facility] 08:58:00 10:58:40 Visit SAAD AMBULATOR 350.1.13.21 College Y 0.2.7.2.686 of [id number] [facility] mari 600 e 2022-04-09 2022-04-09 Outpatient [facility] [id number] [facility] 09:53:39 09:53:39 Colleg [facility] Medicin [facility] 2022-04-09 2022-04-09 [facility]phone [facility] 1.2.840.114 [id number] Univers 00:00:00 00:00:00 [facility] 350.1.13.10 ity of [place] 4.2.7.2.686 Tim as SILVER?BLEA [id number] [address] OFFICE [facility] 2022-04-09 2022-04-09 [facility] 1.2.840.114 [id number] Univers 00:00:00 00:00:00 [facility] 350.1.13.10 ity of [place] 4.2.7.2.686 Tim as SILVER?BLEA [id number] [address] OFFICE [facility] 2022-04-05 2022-04-05 Office Meg [facility] 1.2.840.114 [id number] [facility] 14:30:00 16:17:05 Visit , Percy Lawrence AMBULATOR 350.1.13.21 College Y 0.2.7.2.686 of [id number] [facility] 800 e 2022-04-03 2022-04-03 Outpatient R OJ LIN [facility] [id number] Univers 13:40:00 16:19:29 OJ LIN ity [facility] 2022-04-03 2022-04-03 [facility] 1.2.840.114 [id number] Univers 13:40:00 16:19:[address] [facility] 350.1.13.10 ity of [place] 4.2.7.2.686 Tim as SILVER?BLEA [id number] [address] OFFICE [facility] 2022-04-03 2022-04-03 Orders Doctor ESPINAL 1.2.840.114 [id number] Univers 00:00:00 00:00:00 Only Unassigned, TI 350.1.13.10 ity of [place] [facility] 4.2.7.2.686 Tim as [id number] [facility] [address] 2022-04-03 2022-04-03 Telephone Terrance [facility] 1.2.840.114 [id number] Univers 00:00:00 00:00:00 [facility] 350.1.13.10 ity of [place] 4.2.7.2.686 Tim as SILVER?BLEA [id number] [place] [address] [place] MEDICAL OFFICE BUILDING 2022-04-02 2022-04-02 Outpatient HEMMATI, [facility] [id number] [facility] 10:33:56 11:55:50 LYNDON Paniagua e of Medicin e 2022-03-30 2022-03-30 Outpatient TIGRE, [facility] [id number] [facility] 08:00:27 10:43:29 LEONORA Paniagua e of Medicin e 2022-03-29 2022-03-29 Office Rochelle [facility] 1.2.840.114 [id number] [facility] 14:30:00 15:30:00 Visit Shelly AMBULATOR 350.1.13.21 College Y 0.2.7.2.686 of [id number] [facility] 810 e 2022-03-23 2022-03-23 Emergency Iruke, 1.2.840.1 [id number] Methodi 00:11:00 02:04:00 [place] 90593.1.1 850 s t [place] 3.430.2.7 Hospit a .3.762906 l .8 2022-03-23 2022-03-23 Emergency Iruke, 1.2.840.1 [id number] 402772 Methodi 00:11:00 02:04:00 Ricci 55786.1.1 850 s t [place] 3.430.2.7 Hospit a .3.528864 l .8 2022-03-23 2022-03-23 Travel 1.2.840.1 1.2.108.867 9170 [id number] Methodi 00:00:00 00:00:[address] 3.430.2.7 0.2.7.3.698 Ho spita .3.749954 084.8 l .8 2022-03-23 2022-03-23 Travel 1.2.840.1 1.2.935.962 0398 223401 Methodi 00:00:00 00:00:[address] 3[address]430.2.7 0.2.7.3.698 Ho spita .3.964191 084.8 l .8 2022-03-21 2022-03-21 Outpatient MEG [facility] [id number] [facility] 10:16:48 11:36:56 , PERCY Bartong e of Medicin e 2022-03-20 2022-03-20 Outpatient TORIE DONOHUE [facility] [id number] [facility] 17:12:41 17:27:53 Colleg e of Medicin e 2022-03-19 2022-03-19 Outpatient OJ HUERTA [facility] [id number] [facility] 08:40:00 08:40:00 OJ LIN myla [facility] 2022-03-14 2022-03-17 Inpatient ER MY [facility] Emergency [id number] [facility] 17:46:00 19:00:00 DONNY 2022-03-14 2022-03-17 [facility] ER TrinaAllyson castillo [facility] [id number] [facility] 17:46:00 19:00:00 Yuli Hightower Najamus M [facility] 2022-03-14 2022-03-17 [facility] [id number] [facility] 17:46:00 19:00:00 Yuli Hightower Najamus M [facility] 2022-03-16 2022-03-16 Outpatient [facility] [id number] [facility] 00:00:00 23:59:00 Colleg e of Medicin e 2022-03-16 2022-03-16 [facility] [id number] 00:00:00 00:00:00 Only [facility] 2022-03-16 2022-03-16 Orders [facility] [id number] 00:00:00 00:00:00 Only [facility] 2022-03-15 2022-03-15 Travel [facility] [id number] [facility] 00:00:00 00:00:00 [facility] 2022-03-15 2022-03-15 Travel [facility] [id number] [facility] 00:00:00 00:00:00 [facility] 2022-03-14 2022-03-14 Outpatient BCM BCM [id number] [facility] 00:00:00 00:00:00 Colleg e of Medicin e 2022-03-14 2022-03-14 Outpatient BCM BCM [id number] [facility] 00:00:00 00:00:00 Colleg e of Medicin e 2022-03-12 2022-03-12 Office MICHELLE SMITH 1.2.840.114 [id number] [facility] 13:33:41 15:23:00 Visit LEONORA AMBULATOR 350.1.13.21 College Y 0.2.7.2.686 of [id number] [facility] mari 800 e 2022-03-09 2022-03-09 Orders Doctor ZIYAD 1.2.840.114 [id number] Univers 00:00:00 00:00:00 Only Unassigned, TI 350.1.13.10 ity of [place] [facility] 4.2.7.2.686 Tim as [id number] [facility] [address] 2022-03-08 2022-03-08 Outpatient EL SLEH [facility]H [id number] [facility] 14:21:01 23:59:00 2022-03-08 2022-03-08 [facility] [id number] 13:00:00 23:59:00 Encounter [facility] 2022-03-08 2022-03-08 [facility] [id number] 13:00:00 23:59:00 Encounter [facility] 2022-03-072022-03-07 Emergency ER RACHEAL, SLE Emergency [id number] SLE 16:56:00 20:33:00 [place] 2022-03-07 2022-03-07 Emergency ER Racheal, [facility] [id number] 16:56:00 20:33:00 [facility] 2022-03-07 2022-03-07 Emergency Racheal, [facility] [id number] 16:56:00 20:33:00 [facility] 2022-03-07 2022-03-07 Office Brandt Alvarado [facility] 1.2.840.114 [id number] [facility] 12:00:00 12:30:00 Visit Tucker AMBULATOR 350.1.13.21 College Y 0.2.7.2.686 of 700.4049476 Medi mari 370 e 2022-03-07 2022-03-07 Travel [facility] [id number] [facility] 00:00:00 00:00:00 [facility] 2022-03-07 2022-03-07 Travel [facility] [id number] [facility] 00:00:00 00:00:00 [facility] 2022-03-06 2022-03-06 Office MEG [facility] 1.2.840.114 [id number] [facility] 13:55:11 15:12:48 Visit , PERCY AMBULATOR 350.1.13.21 College Y 0.2.7.2.686 of [id number] Medi mari 800 e 2022-02-28 2022-02-28 Outpatient MICHELLE BYRD [facility] [id number] [facility] 11:04:13 11:30:07 SHELLY caballero of Medicin e 2022-02-27 2022-02-27 Outpatient MICHELLE BLANCA Steve [id number] [facility] 12:41:18 13:30:31 JOE mendoza of Medicin e 2022-02-21 2022-02-21 Office BRANDT ALVARADO [facility] 1.2.840.114 [id number] [facility] 11:42:10 14:47:58 Visit AMBULATOR 350.1.13.21 College Y 0.2.7.2.686 of 645.6970624 Medi mari 370 e 2022-02-21 2022-02-21 Outpatient MICHELLE CARR [facility] [id number] [facility] 12:59:20 13:56:55 ANEL Colleg e of Medicin e 2022-02-21 2022-02-21 Outpatient [facility] [id number] [facility] 10:48:56 11:53:58 Colleg e of Medicin e 2022-02-12 2022-02-12 Outpatient GRACE [facility] [id number] [facility] 14:28:30 14:53:23 NATIVIDAD Colleg e of Medicin e 2022-02-08 2022-02-08 Outpatient JIGNESH [facility] [id number] [facility] 11:10:52 11:23:14 BRANDT Colleg e of Medicin e 2022-02-06 2022-02-06 Outpatient MEG [facility] [id number] [facility] 15:50:32 16:56:47 , PERCY Colleg e of Medicin e 2022-01-24 2022-01-24 Office HANNAH [facility] 1.2.840.114 [id number] [facility] 11:04:24 15:42:18 Visit NEREIDA AMBULATOR 350.1.13.21 College Y 0.2.7.2.686 of 443.2808864 Medi mari 800 e 2022-01-23 2022-01-23 Office ROCHELLE [facility] 1.2.840.114 [id number] [facility] 08:51:35 10:59:10 Visit SHELLY AMBULATOR 350.1.13.21 College Y 0.2.7.2.686 of 708.5178303 Medi mari 810 e 2022-01-22 2022-01-22 Office Tigre [facility] 1.2.840.114 [id number] [facility] 16:30:00 17:00:00 Visit Leonora AMBULATOR 350.1.13.21 College Bhavana Y 0.2.7.2.686 of 016.5358623 Medi mari 800 e 2022-01-18 2022-01-18 Outpatient WILDER KATEH [facility] [id number] [facility] 13:51:29 23:59:00 HENDERSON 2022-01-18 2022-01-18 [facility] Emperatriz [facility] [id number] 13:00:00 23:59:00 Encounter [facility] 2022-01-18 2022-01-18 [facility] [id number] 13:00:00 23:59:00 Encounter [facility] 2022-01-15 2022-01-15 Outpatient ASHLEYOSCOBora [facility] [id number] [facility] 10:39:36 23:59:00 JOSE ANTONIO RAINEY 2022-01-15 2022-01-15 [facility] [id number] 10:39:36 23:59:00 Encounter Jose Antonio rainey [facility] 2022-01-15 2022-01-15 [facility] [id number] [id number] 10:39:36 23:59:00 Encounter Jose Antonio rainey [facility] 2022-01-13 2022-01-13 Outpatient TONY [facility] [id number] [facility] 12:47:24 13:32:31 MITA Paniagua e of Medicin e 2022-01-09 2022-01-09 Outpatient MEG [facility] [id number] [facility] 14:59:11 15:35:42 PERCY e of Medicin e 2021-12-29 2021-12-29 Outpatient ANDI PIERCE [facility] [id number] [facility] 00:00:00 00:00:00 HENDERSON 2021-12-28 2021-12-28 Outpatient VASHTI [facility] [id number] [facility] 14:49:51 15:00:04 RAS sy of Medicin e 2021-12-26 2021-12-26 Outpatient KEL [facility] [id number] [facility] 15:41:39 15:50:12 GERALDO Paniagua e of Medicin e 2021-12-262021-12-26 Outpatient ANDI FRANCES SLE SLE [id number] [facility] 00:00:00 00:00:00 JOSE ANTONIO RAINEY 2021-12-21 2021-12-21 Outpatient HUDSON [facility] [id number] [facility] 13:40:04 13:50:33 Elsi KEARNS of Medicin e 2021-12-19 2021-12-19 Outpatient BRANDT ALVARADO [facility] [id number] [facility] 15:57:39 16:22:47 Colleg e of Medicin e 2021-12-15 2021-12-15 Outpatient YONISVERITO [facility] [id number] [facility] 10:46:21 12:04:39 MITA Collemarc e of Medicin e 2021-12-13 2021-12-13 Outpatient ANDI TREVIÑO [facility] [id number] [facility] 18:57:08 23:59:00 PABLO KEARNS 2021-12-13 2021-12-13 [facility] [id number] [facility] [address] 18:57:08 23:59:00 Encounter [facility] 2021-12-13 2021-12-13 [facility] [id number] [facility] [address] 18:57:08 23:59:00 Encounter [facility] 2021-12-13 2021-12-13 Outpatient ANDI CAMACHO [facility] [id number] [facility] 15:13:57 18:56:00 2021-12-13 2021-12-13 [facility] [id number] 14:30:00 18:56:00 Encounter [facility] 2021-12-13 2021-12-13 [facility] [id number] 14:30:00 18:56:00 Encounter [facility] 2021-12-13 2021-12-13 Outside [facility] [id number] 00:00:00 00:00:00 Orders [facility] 2021-12-13 2021-12-13 [facility] [id number] 00:00:00 00:00:00 Orders [facility] 2021-12-08 2021-12-08 Outpatient MEG [facility] [id number] [facility] 16:04:18 17:05:24 , PERCY caballero of Medicin e 2021-12-06 2021-12-06 Outpatient SWIFTDarleneOSCOBora [facility] [id number] [facility] 00:00:00 00:00:00 JOSE ANTONIO RAINEY 2021-11-23 2021-11-29 Office MICHELLE PIERCE [id number] [facility] 12:23:45 19:53:49 Visit [facility] [id number] College Y [id number] Medi mari 375 e 2021-11-21 2021-11-21 Outpatient [facility] [id number] [facility] 09:33:02 23:59:00 Arcelia caballeor of Medicin e 2021-11-21 2021-11-21 Outpatient EVANGELIST, [facility] [id number] [facility] 15:52:03 16:11:58 JOE mendoza of Medicin e 2021-11-15 2021-11-15 [facility] [id number] [facility] 00:00:00 00:00:00 Orders Jose Antonio rainey [facility] 2021-11-15 2021-11-15 [facility] [id number] 00:00:00 00:00:00 Orders Jose Antonio rainey [facility] 2021-11-14 2021-11-14 Outpatient YARELYBora [facility] [id number] [facility] 11:26:15 11:54:44 JOSE ANTONIO RAINEY Col franco of Medicin e 2021-11-08 2021-11-08 Outpatient MEG [facility] [id number] [facility] 10:45:10 11:26:55 , PERCY caballero of Medicin e 2021-11-07 2021-11-07 Outpatient [facility] [id number] [facility] 12:25:06 19:34:43 Colleg e of Medicin e 2021-11-06 2021-11-06 Outpatient HUDSON [facility] [id number] [facility] 13:01:13 13:16:00 Elsi KEARNS of Medicin e 2021-11-06 2021-11-06 Outside [facility] [id number] 00:00:00 00:00:00 Orders [facility] 2021-11-06 2021-11-06 Outside [facility] [id number] [address] 00:00:00 00:00:00 Orders [facility] 2021-11-02 2021-11-02 Outpatient KAMERON MARIANO [facility] [id number] [facility] 11:13:16 11:46:07 Colleg e of Medicin e 2021-10-04 2021-10-04 Outpatient MEG [facility] [id number] [facility] 14:40:16 15:30:50 PERCY [employer] [facility] [employer]in [employer] 2021-10-04 2021-10-04 Outpatient KALINA [facility] [id number] [facility] 11:02:47 11:22:43 DAVID [employer]in [employer] 2021-10-03 2021-10-04 Emergency ER [facility], [facility] Emergency [id number] [facility] 18:27:00 00:06:00 [facility] 2021-10-03 2021-10-04 Emergency ER [facility], [facility] [id number] 18:27:00 00:06:00 [facility] 2021-10-03 2021-10-04 Emergency [facility], [facility] [id number] [facility] 18:27:00 00:06:00 [facility] 2021-10-03 2021-10-03 Outpatient [facility] [id number] [facility] 00:00:00 23:59:00 Colleg e [facility] Medicin e 2021-10-03 2021-10-03 Orders [facility] [id number] 00:00:00 00:00:00 Only [facility] 2021-10-03 2021-10-03 Travel [facility] [id number] [facility] 00:[facility] 00:00:00 [facility] 2021-10-03 2021-10-03 Orders [facility] [id number] 00:00:00 00:00:00 Only [facility] 2021-10-03 2021-10-03 Travel [facility] [id number] [facility] 00:[facility] 00:00:00 [facility] 2021-10-02 2021-10-02 Outpatient KAMERON MARIANO [facility] [id number] [facility] 11:10:31 11:36:49 Colleg e [employer] Medicin e 2021-09-29 2021-09-29 Outpatient [facility] [id number] [facility] 13:53:41 19:33:14 Colleg e of Medicin e 2021-09-08 2021-09-08 Outpatient [facility] [id number] [facility] 14:39:29 15:57:38 Colleg e of Medicin e 2021-09-08 2021-09-08 Office Brandt Alvarado [facility] 1.2.840.114 [id number] [facility] 14:00:00 14:29:40 Visit Anshulan AMBULATOR 350.1.13.21 College Y 0.2.7.2.686 of [id number] Medi mari 370 e 2021-09-07 2021-09-07 Outpatient MICHELLE JIMENEZ [facility] [id number] [facility] 11:19:54 12:14:35 MITA [employer]in [employer] 2021-09-01 2021-09-01 Outpatient MEG [facility] [id number] [facility] 09:10:31 09:39:43 , PERCY Bartong e of Medicin e 2021-08-30 2021-08-30 Outpatient MEG [facility] [id number] [facility] 09:07:34 09:43:49 , PERCY Bartong e of Medicin e 2021-08-28 2021-08-28 Outpatient TONY, [facility] [id number] [facility] 09:29:31 10:12:55 MITA [employer]in [employer] 2021-08-25 2021-08-25 Outpatient MEG [facility] [id number] [facility] 14:51:23 15:08:58 , PERCY [employer]in [employer] 2021-08-22 2021-08-22 Outpatient TIGRE, [facility] [id number] [facility] 09:16:35 10:19:47 LEONORA Colleg [employer] Medicin e 2021-08-21 2021-08-21 Outpatient KATHY COELLO [facility] [id number] [facility] 15:32:14 15:45:49 Colleg e of Medicin e 2021-08-10 2021-08-10 Outpatient KALINA, [facility] [id number] [facility] 10:45:05 11:03:22 DAVID Colleg [employer] Medicin [employer] 2021-07-18 2021-07-18 Outpatient [facility] [id number] [facility] 10:12:40 23:59:00 Colleg e of Medicin e 2021-06-27 2021-06-27 Office BUCK PETTY 1.2.840.114 [id number] [facility] 11:25:43 14:10:45 Visit NEREIDA AMBULATOR 350.1.13.21 College Y 0.2.7.2.686 of [id number] Medi mari 800 e 2021-06-27 2021-06-27 Office BUCK JAFFE 1.2.840.114 [id number] [facility] 11:47:25 13:43:58 Visit ANTON AMBULATOR 350.1.13.21 College Y 0.2.7.2.686 of [id number] Medi mari 805 e 2021-06-27 2021-06-27 Outpatient KEL [facility] [id number] [facility] 10:52:47 11:01:51 DIPABEN Colleg e of Medicin e 2021-06-26 2021-06-26 Outpatient MARY CORTÉS [facility] [id number] [facility] 12:48:58 13:12:49 Colleg e of Medicin e 2021-06-14 2021-06-14 Outpatient TEEBJU [facility] [id number] [facility] 10:32:30 10:36:22 , BINDU Heath ege of Medicin e 2021-05-03 2021-05-03 Office BRANDT ALVARADO [facility] 1.2.840.114 [id number] [facility] 11:20:43 13:31:56 Visit AMBULATOR 350.1.13.21 College Y 0.2.7.2.686 of [id number] Medi mari 370 e 2021-05-03 2021-05-03 Outpatient [facility] [id number] [facility] 12:39:45 13:27:12 Colleg e of Medicin e 2021-03-17 2021-03-17 Outpatient MARY CORTÉS [facility] [id number] [facility] 13:52:42 14:02:09 Colleg e of Medicin e 2021-03-15 2021-03-15 Outpatient TIGRE [facility] [id number] [facility] 13:01:17 14:14:59 LEONORA Colleg e of Medicin e 2021-03-03 2021-03-03 Outpatient GORGE [facility] [id number] [facility] 14:39:05 15:10:23 ENMANUEL Colleg e of Medicin e 2021-03-03 2021-03-03 Office MALINDA [facility] 1.2.840.114 [id number] [facility] 13:47:38 14:34:20 Visit NEREIDA AMBULATOR 350.1.13.21 College Y 0.2.7.2.686 of [id number] Medi mari 800 e 2021-03-03 2021-03-03 Outpatient [facility] [id number] [facility] 00:00:00 00:00:00 Colleg e of Medicin e 2021-02-14 2021-02-14 Outpatient SHERI MALDONADO [facility] [id number] [facility] 12:52:23 13:06:39 Colleg e of Medicin e 2021-02-01 2021-02-01 Outpatient MARY CORTÉS [facility] [id number] [facility] 11:08:12 11:16:51 Colleg e of Medicin e 2021-01-23 2021-01-23 Outpatient SHERI MALDONADO [facility] [id number] [facility] 14:10:03 14:39:01 Colleg e of Medicin e 2021-01-13 2021-01-13 Outpatient MARY CORTÉS [facility] [id number] [facility] 10:40:13 10:46:45 Colleg e of Medicin e 2021-01-05 2021-01-05 Outpatient SHERI MALDONADO [facility] [id number] [facility] 14:02:25 14:28:53 Colleg e of Medicin e 2021-01-03 2021-01-03 Emergency ER [facility] Emergency [id number] [facility] 13:47:00 13:47:00 2020-12-02 2020-12-02 Office Brandt Alvarado [facility] 1.2.840.114 [id number] [facility] 11:28:58 12:00:21 Visit Chuan AMBULATOR 350.1.13.21 College Y 0.2.7.2.686 of [id number] Medi mari 370 e 2020-11-11 2020-11-11 Office Brandt Alvarado [facility] 1.2.840.114 [id number] 14:00:00 14:30:00 Visit Chuan AMBULATOR 350.1.13.21 Y 0.2.7.2.686 [id number] 370 2020-11-11 2020-11-11 Office Brandt Alvarado [facility] 1.2.840.114 [id number] [facility] 14:00:00 14:30:00 Visit Chuan AMBULATOR 350.1.13.21 College Y 0.2.7.2.686 of [id number] Medi mari 370 e 2020-11-11 2020-11-11 Outpatient [facility] [id number] [facility] 12:34:41 12:34:41 Colleg e of Medicin e 2020-10-28 2020-10-28 Outpatient EL BRANDT ALVARADO [facility] [id number] [facility] 00:00:00 00:00:00 2020-10-12 2020-10-12 JOELLE Cabral [facility] [id number] [place] 10:00:00 10:00:00 t; HECTOR STORM lty - Physi zofia YOUNG M.D. Internation qamar Garcia [facility] 2020-09-08 2020-09-08 Patient Andres IAJUANITO 1.2.840.114 [id number] 00:00:00 00:00:00 Outreach Kevin PRIMARY 350.1.13.10 [place] 4.2.7.2.686 PAVILLION [id number] 2020-09-08 2020-09-08 Patient Andres IAJUANITO 1.2.840.114 [id number] Univers 00:00:00 00:00:00 Outreach Kevin PRIMARY 350.1.13.10 i ty of [place] [facility] [place].2.[place] [id number] [place] dical [address] Branch 2020-08-16 2020-08-16 AppointJOELLE [id number] [place] 15:30:00 15:30:00 t; HECTOR STORM lty - Physi zofia YOUNG M.D. Internation qamar Garcia [facility] 2020-07-22 2020-07-22 Outpatient EL [facility]H [facility] [id number] [facility] 00:00:00 00:00:00 2020-07-22 2020-07-22 Outpatient EL [facility] [id number] [facility] 00:00:00 00:00:00 2020-06-20 2020-06-20 AppointJOELLE Cintron [facility] [id number] [place] 14:00:00 14:00:00 t; HCETOR STORM Physi ci SHAOJIE, M.D. ans M.D. 2020-06-14 2020-06-[address] [facility] 1.2.840.114 [id number] 14:00:46 14:30:46 Visit , Bindu Jordy 350.1.13.21 [place]i 0.2.7.2.686 [id number] 530 2020-06-14 2020-06-14 Office Teegavarapu [facility] 1.2.840.114 [id number] [facility] 14:00:46 14:30:46 Visit , Bindu TerrazasNair 350.1.13.21 College Sra[place]i 0.2.7.2.686 of [id number] Medi mari 530 e 2020-06-09 2020-06-09 Appointmen JOELLE STORM [facility] [id number] [place] 12:00:00 12:00:00 t; HECTOR STORM, lty - Physi Radha YOUNG Internation qamar Garcia [facility] 2020-05-12 2020-05-12 Office Parish Fam [facility] 1.2.840.114 [id number] 11:31:06 16:54:40 Visit AMBULATOR 350.1.13.21 Y 0.2.7.2.686 [id number] 2020-05-12 2020-05-12 Office Parish Fam [facility] 1.2.840.114 [id number] [facility] 11:31:06 16:54:40 Visit AMBULATOR 350.1.13.21 College Y 0.2.7.2.686 of [id number] Medi mari 305 e 2020-05-12 2020-05-12 Office Brandt Alvarado [facility] 1.2.840.114 [id number] 13:27:27 14:12:27 Visit Chuan AMBULATOR 350.1.13.21 Y 0.2.7.2.686 [id number] 370 2020-05-12 2020-05-12 Office Brandt Alvarado [facility] 1.2.840.114 [id number] [facility] 13:27:27 14:12:27 Visit Chuan AMBULATOR 350.1.13.21 College Y 0.2.7.2.686 of [id number] Medi mari 370 e 2020-04-22 2020-04-22 Emergency E LAURIE MHJO MHBL [id number] MHBL 19:33:00 21:32:00 BRANDT 2020-03-31 2020-03-31 Outpatient R SPENSER [facility] [id number] [facility] 13:00:00 13:00:00 JORDI valdez [facility] 2020-03-28 2020-03-28 AppointJOELLE Alejandro [facility] [id number] [place] 14:30:00 14:30:00 t; ALANA HAM M.D. P hysici SABA, M.D. ans 2020-03-17 2020-03-17 Appointmen JOELLE STORM [facility] [id number] [place] 12:00:00 12:00:00 t; HECTOR STORM, y - [facility] Radha YOUNG Internation qamar Garcia [facility] 2020-03-10 2020-03-10 Outpatient R SUELLEN MENDENHALL [facility] [id number] [facility] 13:30:00 13:30:[address] [facility] 2020-03-10 2020-03-10 Office Huy [facility] 1.2.884.932 [id number] 13:06:29 13:21:29 Visit Elva GARZA 350.1.13.10 [place] 4.2.7.2.686 DOBBS FERRY [id number] [place] [address] [facility] 2020-03-10 2020-03-10 Office Elva Son [facility] 1.2.840.11 [id number] [facility] 13:06:29 13:21:29 Visit Suellen MendenhallPEC 350.1.13.10 ity of [facility] 4.2.7.2.686 [facility] [id number] [facility] AND [address] [facility] 2020-03-10 2020-03-10 Orders Doctor ESPINAL 1.2.840.114 [id number] Univers 00:00:00 00:00:00 Only Unassigned, TI 350.1.13.10 ity of [facility] 4.2.7.2.686 Tim [id number] [place] [address] Branch 2020-03-02 2020-03-02 Outpatient [facility] [id number] SLE 00:00:00 00:00:00 2020-02-09 2020-02-09 Appointmen JOELLE BILL [facility] [id number] [place] 11:00:00 11:00:00 t; lilly CARLTON [facility] Cam BILL M.D. [place] qamar CARLTON [facility] 2020-01-29 2020-01-29 Outpatient ANDI GILMAN [facility] [id number] SLE 00:00:00 00:00:00 DAVID 2020-01-27 2020-01-27 JOELLE Cabral [facility] [id number] [place] 15:30:00 15:30:00 t; HECTOR STORM lty - Leonard YOUNG M.D. Internation qamar Garcia [facility] 2020-01-01 2020-01-01 Layal ALEXIS [facility] Orthopedics [id number] [place] 09:50:00 09:50:00 t; GARRETT GROVES [facility] [place] qamar GROVES NP [facility] 2019-12-23 2019-12-24 Outpatient E KALEBI, FB MED [id number] MHFB 17:36:00 17:46:00 EMY 2019-12-21 2019-12-22 Emergency Schaffer, [facility] 1.2.840.114 [id number] Univers 22:02:00 02:26:00 Deed [place] 350.1.13.10 i [facility] 4.2.7.2.686 [facility] [id number] [place] [address] Branch 2019-12-21 2019-12-21 Emergency X SCHAFFER, [facility] ERT [id number] Univers 22:02:00 22:02:[address] [facility] 2019-12-15 2019-12-15 Layla BILL [facility] Orthopedics [id number] [place] 11:10:00 11:10:00 t; BRANDT [facility] Radha Van [facility] 2019-11-27 2019-11-27 Outpatient LANDY, MHFB MHFB [id number] MHFB 06:50:00 11:40:00 BRANDT 2019-11-27 2019-11-27 Layla BILL [facility] [id number] [place] 08:00:00 08:00:00 t; Leonard CARLTON M.D. ans MICHAEL, M.D. 2019-11-10 2019-11-10 JOELLE López [facility] [id number] [place] 10:45:00 10:45:00 t; Leonard CARLTON M.D. ans MICHAEL, M.D. 2019-10-27 2019-10-27 Appointmelina BILL, [facility] [id number] [place] 11:30:00 11:30:00 t; Leonard CARLTON M.D. ans MICHAEL, M.D. 2019-10-23 2019-10-23 Appointmelina [facility] [id number] [place] 12:45:00 12:45:00 t; ELOISE DAMON Phy sici ELOISE [facility] 2019-10-16 2019-10-16 Layla BILL, [facility] [id number] [place] 10:30:00 10:30:00 t; Leonard CARLTON M.D. ans MICHAEL, M.D. 2019-09-30 2019-09-30 [id number] [place] 15:30:00 15:30:00 t; HECTOR STORM f f [facility] - Physi zofia YOUNG M.D. Internation qamar Garcia [facility] 2019-09-11 2019-09-11 [facility] 1..840.114 [id number] Univers 00:00:00 00:00:00 Tracey White 350.1.13.10 i ty of [place] 4.2.7.2.686 [facility] [id number] [facility] 044 [facility] 2019-08-24 2019-08-24 AppointJOELLE Logan [facility] [id number] [place] 14:30:00 14:30:00 t; HOLGER PERAZA M.D. at [facility] Richard WREN M.D. [facility] 2019-08-20 2019-08-20 Emergency X [facility] ERT [id number] Univers 11:54:02 15:29:[address] [facility] 2019-08-20 2019-08-20 Emergency [facility] 1..680.170 [id number] Univers 11:54:02 15:29:00 Mehreen White 350.1.13.10 ity of [place] 4.2.7.2.[place] [id number] [facility] 084 Branch 2019-08-20 2019-08-20 Orders Doctor ZIYAD 1.2.840.114 [id number] Univers 00:00:00 00:00:00 Only Unassigned, TI 350.1.13.10 ity of [facility] 4.2.7.2.686 Tim as [id number] [address] 2019-08-13 2019-08-13 Layla BILL [facility] Orthopedics [id number] [place] 09:45:00 09:45:00 t; lilly CARLTON M.D. Richardjudy CARLTON [facility] 2019-08-07 2019-08-07 Outpatient [facility] [id number] [facility] 10:04:00 10:04:00 2019-08-07 2019-08-07 JOELLE Coffman [facility] [id number] [place] 10:00:00 10:00:00 t; ELOISE DAMON [facility] ELOISE [facility] 2019-08-04 2019-08-04 Layla BILL [facility] [id number] [place] 13:30:00 13:30:00 t; Leonard CARLTON M.D. ans MICHAEL, M.D. 2019-07-13 2019-07-13 JOELLE Dave [facility] [id number] [place] 13:00:00 13:00:00 t; ALANA HAM M.D. f [facility] WARNER M.D. [facility] 2019-07-03 2019-07-03 Emergency X DEBBY, [facility] ERT [id number] [facility] 13:52:37 16:46:[address] [facility] 2019-06-23 2019-06-23 JOELLE López UTP [id number] [place] 11:15:00 11:15:00 t; Leonard CARLTON M.D. ans MICHAEL, M.D. 2019-05-19 2019-05-19 Layla VILLANUEVA [facility] Orthopedics 58 [id number] [place] 08:00:00 08:00:00 t; lilly ALEXchico Cam VILLANUEVA, [facility] qamar ALEX, [facility] [address] 2019-05-08 2019-05-08 JOELLE López [facility] 58 [id number] [place] 11:00:00 11:00:00 t; lilly CARLTON [facility] Radha [facility] 2019-05-04 2019-05-04 [facility] [id number] [place] 11:00:00 11:00:00 t; Thony VALADEZ i, M.D. ans ROBERT, M.D. 2019-04-20 2019-04-20 Appointdistrict [facility] [id number] [place] 13:00:00 13:00:00 t; OTTONIEL CHAU [facility] M.D. 2019-04-16 2019-04-16 [facility] Multispecia 5 [id number] [place] 13:00:00 13:00:00 t; NITHYA CERVANTES - [facility] NITHYA CERVANTES [address] 2019-04-14 2019-04-14 [facility]IL[facility] Orthopedics 57 [id number] [place] 14:15:00 14:15:00 t; lilly CARLTON [facility] Radha [facility] 2019-04-13 2019-04-13 [facility] [id number] [place] 12:00:00 12:00:00 t; HECTOR STORM Physi ci SHAOJIE, M.D. ans M.D. 2019-04-09 2019-04-09 [facility] Multispecia 5 [id number] [place] 07:00:00 07:00:00 t; Radha [facility]ANTES - [facility] Radha CERVANTES [address] 2019-04-09 2019-04-09 Outpatient MHSE MHSE [id number] 06:10:00 06:10:00 [facility] 2019-03-26 2019-03-26 [facility] Multispecia [id number] [place] 11:30:00 11:30:00 t; alex HACKETT i, M.D. [place] English[place] panchal M.D. 2019-03-17 2019-03-17 Layla BILL, [facility] [id number] [place] 11:00:00 11:00:00 t; Leonard CARLTON M.D. ans MICHAEL, M.D. 2019-03-05 2019-03-05 AppointJOELLE Almeida [facility] 5 [id number] [place] 10:30:00 10:30:00 t; lt KOBEy - Physi ci VIGNESH, [facility], qamar [place], [address] [facility] 2019-03-03 2019-03-03 Outpatient [facility] [id number] [facility] 11:36:00 11:36:00 2019-03-03 2019-03-03 Appointmelina [facility] [id number] [place] 11:30:00 11:30:00 t; TADEO ALCALA P hysici HARINDER, M.D. ans M.D. 2019-02-10 2019-02-10 Appointmelina [facility] Orthopedics 56 [id number] [place] 13:45:00 13:45:00 t; Darlene CARLTON Physi zofia BILL M.D. [place] qamar CARLTON M.D. 2019-02-05 2019-02-05 Appointmen DOTTY [facility] Multispecia [id number] [place] 14:00:00 14:00:00 t; HECTOR STORM lty - Physi zofia YOUNG M.D. Internation qamar Garcia [facility] 2019-01-29 2019-01-29 [facility] Multispecia [id number] [place] 15:30:00 15:30:00 t; alex HACKETT Physic i HARLEY Garcia [place] ROXANN foote M.D. 2019-01-29 2019-01-29 Appointmelina SOUZA [facility] [id number] [place] 15:00:00 15:00:00 t; Thony HACKETT i ROXANN Parsons M.D., M.D. 2019-01-23 2019-01-23 AppointJOELLE Delgado [facility] 5 [id number] [place] 14:00:00 14:00:00 t; NITHYA CERVANTES lty - Physi ci BECKY [facility] NITHYA CERVANTES [address] 2019-01-14 2019-01-14 Appointmen COREY HOBSON, [facility] Multispecia [id number] [place] 13:00:00 13:00:00 t; JOCELINE HOBSON lty - Physi ci JOCELINE ARANA Internation a [facility] 2019-01-14 2019-01-14 Appointmen EDUARD [facility] Non-Invasiv [id number] [place] 10:00:00 10:00:00 t; EDUARD ECHOII e - [place] P hysici ECHOII Medical [facility] 2019-01-14 2019-01-14 Appointmen EDUARD, PFT UTP UTP [id number] [place] 09:00:00 09:00:00 t; Lillie CHAPA sici PFT [facility] 2019-01-14 2019-01-14 Appointmen CHITRA [facility] Pulmonary & [id number] [place] 08:30:00 08:30:00 t; CASTILLO BUENROSTRO M.D. Sleep Physici qamar CHONG M.D. 2019-01-13 2019-01-13 Appointmelina SOUZA [facility] Multispecia [id number] [place] 08:00:00 08:00:00 t; alex HACKETT i, M.D. [place] [facility] ROX[address] M.D. 2018-12-29 2018-12-29 Appointmen COREY HOBSON, [facility] Multispecia [id number] [place] 13:00:00 13:00:00 t; JOCELINE HOBSON lty - Physi ci JOCELINE ARANA Internation a [facility] Results Test Description Test Time Test Comments Results Result [facility] e Comments CT, CHEST WITH IV 2022-07-14 42F hx/ DVT/PE, CONTRAST- PE TEST 12:45:00 UC, lap gastric DESIGN sleeve, p/w [facility] SOBUnlisted [facility] - MEDICAL Reason for Exam [...] procedure changes. Please correlate clinically. Signed: Enmanuel Aranaort Verified Date/Time: 07/14/2022 12:45:47 Urinalysis w/Microscopic + Reflex to Culture 2022-07-12 19:3 3:30 Test Item Value Reference Range Interpretation Comme nts Color, UA (test code = Yellow 5778-6) Clarity, UA (test code = Hazy 5767-9) Specific [place], UA (test 1.026 1.001-1.035 code = 5811-5) pH, UA (test code = 5803-2) 6.0 5.0-8.0 Protein, UA (test code = 20 mg/dL Negative A 07863-9) Glucose, UA (test code = Negative Negative 365) Ketones, UA (test code = 10 mg/dL Negative A 2514-8) Bilirubin, UA (test code = Negative Negative 21823-3) Blood, UA (test code = Negative Negative 72827-3) Nitrite, UA (test code = Negative Negative 5802-4) Leukocytes, UA (test code = Moderate Negative A 5799-2) Urobilinogen, UA (test code 2 0.2-1.0 H = 16452-7) RBC, UA (test code = 2 See_Comment [Autom ated message] 58749-9) The system [employer] generated this result transmitted ref erence range: /HPF. Th e reference range was not used to interpr et this result as normal/abnormal . WBC, UA (test code = 17 See_Comment [Autom ated message] 5821-4) The system [employer] generated this result transmitted ref erence range: /HPF. Th e reference range was not used to interpr et this result as normal/abnormal . Mucus (test code = 8247-9) Rare Squam Epithel, UA (test 8 See_Comment [Au tomated message] code = 20902-2) The system [facility] generated this result transmitted ref erence range: /HPF. Th e reference range was not used to interpr et this result as normal/abnormal . Specimen Source (test code = 2795) PEYTON (test code = PEYTON) Recreation Director ID - [auto]Recreation Director ID - tech Lab Interpretation (test Abnormal code = 52880-7) [facility] Campus[facility]inalysis w/Microscopic + Reflex to Culture 2022-07-12 19:33:30 Test Item Value Reference Range Interpretation Comments Color, UA (test code Yellow = 5778-6) Clarity, UA (test Hazy code = 5767-9) Specific Holland, UA 1.026 1.001-1.035 (test code = 5811-5) pH, UA (test code = 6.0 5.0-8.0 5803-2) Protein, UA (test 20 mg/dL Negative A code = 06184-4) Glucose, UA (test Negative Negative code = 365) Ketones, UA (test 10 mg/dL Negative A code = 2514-8) Bilirubin, UA (test Negative Negative code = 54399-7) Blood, UA (test code Negative Negative = 64373-7) Nitrite, UA (test Negative Negative code = 5802-4) Leukocytes, UA (test Moderate Negative A code = 5799-2) Urobilinogen, UA 2 0.2-1.0 H (test code = 68856-3) RBC, UA (test code = 2 See_Comment [Autom ated 96039-9) message] The system which generated this result transmit svetlana reference range : /HPF. The reference range was not used to interpret this result as normal/abnormal . WBC, UA (test code = 17 See_Comment [Autom ated 5821-4) message] The system which generated this result transmit svetlana reference range : /HPF. The reference range was not used to interpret this result as normal/abnormal . Mucus (test code = Rare 8247-9) Squam Epithel, UA 8 See_Comment [Automate d (test code = 55646-3) messag e] The system which generated this result transmit svetlana reference range : /HPF. The reference range was not used to interpret this result as normal/abnormal . Specimen Source (test code = 2795) PEYTON (test code = PEYTON) Recreation Director ID - [auto]Recreation Director ID - tech Lab Interpretation Abnormal (test code = 91553-4) [facility] CampusURINALYSIS W/ REFLEX URINE [id number] 19:33:30 Test Item Value Reference Range Interpretation [...] = 516) SOURCE(BEAKER) (test code = 2795) Recreation Director ID - [auto]Recreation Director ID - techRAD, CHEST, 1 VIEW, NON [id number] 09:00:00Reason for exam:->DyspneaShould this be performed at the bedside?->Yes[facility] : 1980 Sex: FFINAL [...] No acute intrathoracic abnormality. Signed: Bang Rodriguez MDReport Verified Date/Time: 07/12/2022 09:00:54 Reading Location: [address] Neuro Reading Room CT, DRAINAGE W/ CATH [id number] 19:23:00Patient requesting anesthesia Reason for exam:- >Patient with LUQ pain 3 weeks after Sleeve Gastrectomy with large fuid collection in gastrosplenic ligament Anesthesia:->General [facility] : 1980 Sex: FFINAL REPORT PROCEDURE: Drainage catheter placement Procedural PersonnelAttending physician(s): Alexandru Azar Pre-procedure diagnosis: Postsurgical collectionPost-procedure diagnosis: SameIndication: Post-operative fluid collectionAdditional clinical history: None Complications: Noimmediate complications. IMPRESSION: Percutaneous placement of a 8 Slovenian drainage catheter into perigastric collection, yielding 10 [...] (mL): Less than 5 Signed: Alexandru Azar Verified Date/Time: 07/10/2022 19:23:56 Reading Location: [place] [address] Angio Body Reading Room PROTHROMBIN TIME/[id number] 04:48:18 Test Item Value Reference Range Interpretation Comments PROTIME (BEAKER) 15.8 seconds 11.9-14.2 H (test code = 759) INR (BEAKER) (test 1.34 See_Comment [Automat ed message] code = 370) The system [employer] generated this result transmitted ref erence range: <=5.90. The reference range was not used to int erpret this result as normal/abnormal . RECOMMENDED COUMADIN/WARFARIN INR THERAPY RANGESSTANDARD DOSE: 2.0 - 3.0 Includes: PROPHYLAXIS for venous thrombosis, systemic embolization; TREATMENT for venous thrombosis and/or pulmonary embolus.HIGH RISK: Target INR is 2.5-3.5 for patients with mechanical heart valves. Screen, [id number] 02:02:32 Test Item Value Reference Range Interpretation Comments Preg Test, Ur (test code = 2112-1) Negative Negative Lab Interpretation (test code = Normal 97517-1) [facility] CampusPregnancy Screen, [id number] 02:02:32 Test Item Value Reference Range Interpretation Comments Preg Test, Ur (test code = 2112-1) Negative Negative Lab Interpretation (test code = Normal 12419-9) [facility], [facility] CampusPREGNANCY SCREEN, [id number] 02:02:32 Test Item Value Reference Range Interpretation Comments TEST URINE (BEAKER) (test Negative Negative code = 583) HEPATIC FUNCTION [id number] 08:22:56 Test Item Value Reference Range Interpretation [...] (test code = 11 U/L 6-55 347) Recreation Director ID - JULIANA LBASIC METABOLIC [id number] 05:37:44 Test Item Value Reference Range Interpretation [...] not appl icable for dialysis patien ts Recreation Director ID - JULIANA SEMTTSDMSR4056-07-31 05:37:44 Test Item Value Reference Range Interpretation Comments MAGNESIUM (BEAKER) (test code = 1.7 mg/dL 1.6-2.6 627) Recreation Director ID Darlene ANDREWS [id number] 05:37:44 Test Item Value Reference Range Interpretation Comments PHOSPHORUS (BEAKER) (test code = 2.7 mg/dL 2.3-4.7 604) Recreation Director ID Darlene ANDREWS LC-REACTIVE [id number] 05:37:44 Test Item Value Reference Range Interpretation Comments C-REACTIVE PROTEIN (BEAKER) (test 5.08 mg/dL 0.00-0.50 H code = 676) Recreation Director NIC ANDREWS LCBC W/PLT COUNT & AUTO [id number] 05:06:09 Test Item Value Reference Range Interpretation [...] (BEAKER) (test code = 2801) COMPREHENSIVE METABOLIC [id number] 13:36:22 Test Item Value Reference Range Interpretation [...] high >=90 G2 Mildly decreased 60-89 G3a Mild ly to moderately 45-5 9 G3b Moderately to [...] not appl icable for dialysis patien ts [id number] 13:36:12 Test Item Value Reference Range Interpretation Comments LIPASE (BEAKER) (test code = 749) 105 U/L 40-240 LACTIC ACID, [id number] 13:32:48 Test Item Value Reference Range Interpretation Comments LACTATE BLOOD VENOUS (2) (BEAKER) 0.80 mmol/L 0.50-2.20 (test code = 2872) Urinalysis w/Microscopic + Reflex to [id number] 13:02:00 Test Item Value Reference Range Interpretation Comments Color, UA (test code Yellow = 5778-6) Clarity, UA (test Slightly Cloudy code = 5767-9) Specific Holland, UA >=1.030 1.005-1.030 (test code = 5811-5) pH, UA (test code = 6.0 5.0-9.0 5803-2) Protein, UA (test 30 mg/dL Negative A code = 09363-8) Glucose, UA (test Negative Negative code = 365) Ketones, UA (test >=80 mg/dL Negative A code = 2514-8) Bilirubin, UA (test Positive Negative A code = 69756-6) Blood, UA (test code Negative Negative = 60501-4) Nitrite, UA (test Negative Negative code = 5802-4) Leukocytes, UA (test Trace Negative A code = 5799-2) Urobilinogen, UA 0.2 (test code = 91772-1) Bacteria, UA (test Many code = 54172-5) RBC, UA (test code = <5 See_Comment [Autom ated 799-7) message] The system which generated this result transmit svetlana reference range : /HPF. The reference range was not used to interpret this result as normal/abnormal . WBC, UA (test code = 50-100 See_Comment [Autom ated 91930-2) message] The system which generated this result transmit svetlana reference range : /HPF. The reference range was not used to interpret this result as normal/abnormal . SQUAMOUS EPITHELIAL 20-50 See_Comment [Automa svetlana (test code = 98939-0) messag e] The system which generated this result transmit svetlana reference range : /HPF. The reference range was not used to interpret this result as normal/abnormal . Specimen Source (test code = 2795) Lab Interpretation Abnormal (test code = 79735-1) [facility]URINALYSIS W/ REFLEX URINE [id number] 13:02:00 Test Item Value Reference Range Interpretation [...] SARS-Co V-2 (test code = target nucleic 66711-5) acids are not detected in thi s [...] revoked sooner. Fact Sheet for Healthcare Providers: https://www.viavoocom/Documents/Xp ert%20Xpress%20SAR S%20CoV-2/Fact%20S heets/302-0522%20S ARS-COV-2%20HEALTH CARE%20PROVIDERS%2 0FACT%20SHEET.pdf Fact Sheet for Healthcare Patients: https://www.Coupz/Documents/Xp ert%20Xpress%20SAR S%20CoV-2/Fact%20S heets/302-3801%20S ARS-COV-2%20PATIEN T%20FACT%20SHEET.p df Lab Interpretation Normal (test code = 30890-6) [facility]2022-07-06 12:35:39 Test Item Value Reference Interpretation Comments Range SARS-COV2/RT-PCR Negative Negative The SARS-Co V-2 (test code = target nucleic 74210-4) acids are not detected in thi s [...] revoked sooner. Fact Sheet for Healthcare Providers: https://www.Coupz/Documents/Xp ert%20Xpress%20SAR S%20CoV-2/Fact%20S heets/3023802%20S ARS-COV-2%20HEALTH CARE%20PROVIDERS%2 0FACT%20SHEET.pdf Fact Sheet for Healthcare Patients: https://www.C[employer]z/Documents/Xp ert%20Xpress%20SAR S%20CoV-2/Fact%20S heets/302-3801%20S ARS-COV-2%20PATIEN T%20FACT%20SHEET.p df Lab Interpretation Normal (test code = 82445-3) [facility]omatic ONLY[facility]2022-07-06 12:35:39 Test Item Value Reference Interpretation Comments Range SARS-COV2/RT-PCR Negative Negative The SARS-Co V-2 (test code = target nucleic 69539-1) acids are not detected in thi s [...] revoked sooner. Fact Sheet for Healthcare Providers: https://www.Coupz/Documents/Xp ert%20Xpress%20SAR S%20CoV-2/Fact%20S heets/302-3802%20S ARS-COV-2%20HEALTH CARE%20PROVIDERS%2 0FACT%20SHEET.pdf Fact Sheet for Healthcare Patients: https://www.Coupz/Documents/Xp ert%20Xpress%20SAR S%20CoV-2/Fact%20S heets/302-3801%20S ARS-COV-2%20PATIEN T%20FACT%20SHEET.p df Lab Interpretation Normal (test code = 16154-3) [facility])2022-07-06 12:35:39 Test Item Value Reference Range Interpretation Comments SARS-COV2/RT-PCR Negative Negative The SARS-Co V-2 target (test code = nucleic acids a re not 6237671) detected in thi s specimen. Negative result [...] revoked sooner. Fact Sheet for Healthcare Providers: https://www.TITIN Tech.c om/Documents/Xpert%20Xpress%20SARS%20CoV-2/Fact%20Sheets/302-3802%56UVLJ-VOU-5%2 0HEALTHCARE%20PROVIDERS%20FACT%20SHEET.pdf Fact Sheet for Healthcare Patients: https://www.Enkia/Documents/Xpert%20X press%20SARS%20CoV-2/Fact%20Sheets/302-3801%50SEWP-MEB-1%20PATIENT%20FACT%20SHEE T.pdfCT, [id number] 12:27:00Unlisted Reason for Exam - Click Yes and Enter Reason Below->NoProtocol Please Specify:->Standard ProtocolWill this procedure require oral contrast?->No [facility] : 1980 Sex: [...] status post cholecystectomy, and right nephrectomy. Signed: Jinny, Judy MDReport Verified Date/Time: 07/06/2022 12:27:18 Reading Location: [facility] C013X Ortho Consult Reading Room PT/[id number] 11:56:50 Test Item Value Reference Range Interpretation [...] mechanical heart valves.CBC W/PLT COUNT & AUTO [id number] 11:25:04 Test Item Value Reference Range Interpretation [...] PERCENT (BEAKER) (test code = 2801) POC-Glucose [id number] 14:06:23 Test Item Value Reference Range Interpretation Comments POC-Glucose Meter (test 117 mg/dL 70-110 H : TE STED AT [facility] code = 1538) [address] [place] [address], [facility] 30: Recreation Director/Techni sandy ID = [id number] for Rehami, Ronen Lab Interpretation (test Abnormal code = 16978-4) [facility]-Glucose [id number] 14:06:23 Test Item Value Reference Range Interpretation Comments POC-Glucose Meter (test 117 mg/dL 70-110 H : TE STED AT [facility] code = 1538) [address] [place] [address], [facility] 30: Recreation Director/Techni sandy ID = [id number] for Rehami, Ronen Lab Interpretation (test Abnormal code = 63790-5) [facility]-Glucose [id number] 14:06:23 Test Item Value Reference Range Interpretation Comments POC-Glucose Meter (test 117 mg/dL 70-110 H : TE STED AT [facility] code = 1538) [address] [place], [address]: Recreation Director/Techni sandy ID = [id number] for Ronen Vann Lab Interpretation (test Abnormal code = 83170-1) [facility]POCT-GLUCOSE [id number] 14:06:23 Test Item Value Reference Range Interpretation Comments POC-GLUCOSE METER 117 mg/dL 70-110 H : TESTED A T [facility] 6720 (BEAKER) (test code = ALICE Castillo [facility], 1538) [address]: Recreation Director/Techni sandy ID = [id number] for Re hamiRonen Tissue [id number] 14:57:34 Test Item Value Reference Range Interpretation Comments Case Report (test code Surgical Pathology = 104) Report Case: [id number] Authorizing Provider: Jose Antonio Martínez Collected: 06/20/2022 11:46 AM MD Froilan Ordering Location: [facility] PERIOPERATIVE Received: 06/20/2022 01:27 PM SERVICES Pathologist: Veronica Mccoy MD Specimen: Stomach, PARTIAL GASTRECTOMY DIAGNOSIS (test code = [id number] 3220) uZzEwMzNcZnRuYmpcdWMxIH tccnRmMVxlcGljOTYwMlxhb dZpMRZeoNJuP0GcgwxeFKoa HS9nSK4xjDdrmHVynAGaMJZ oNrJot4gcu480uMHsa3clZO KXrtowvWt5dKqwS92fw4O6V elzX18dqOQsHHE6ZKIsLZSt qSDwURDvZDH5TZZniOEkF1v nZKRjNE8ktfxhTOerYDvlZR KnsVQ7ZUJkoAKyW3ClGHJdD CctVATrskr3GmBeHf2pqVOg eTcyMFxwYXJkXHBsYWluXGZ cLrRmVR7jL6CJZILIVDdsLU TXMXyEPMUWYCRLDnIILP6VA ZmthMCuARBhQaQwR7aOGkPW HhISVQUGN7ClJ2kUAXMGBmJ ESLxZZZQLP6GNGKDFHQCRX7 nMS3cJPJKAKJWYJGYVW01ns GFyXHRhYiAtTkVHQVRJVkUg Fl9OTNrDIFpMV9UBL1NVFqR PFKMFR35ZU1UVGRUTTiRSBy VZA6JFXS1OMTNQOJpLJ8ptT UZ1s6hsjHQpVSNmnBDmKNLk MFxhbnNpXGRlZmxhbmcxMDM tPWV3deAmIPZyVSipXGEkPA fnGm0yyJCxkDlhVhIhPNKcl 9cfvjERsqpqnWa7r2qvEGPm BsP5cIYtERslH2gslfAlcPN fYSOjYBe4cC09HMOckP7ztB HhCCeszmSqXmA1LTimDYSaO hM3WPCwyGDzSEPsU6wqFIKp GGsqWFOsZGoyaLGtMKL8uNy gv1D0kZFcbUNcuJceGfGeGw TdJlUYh3RyORh1iEjtZ9LgL ORvMbU8gPWnZNSaGUhnYQOg MHHwzdO7aS56UNprycW5wAJ aq6Vnr68ed717tW6snMCzJA K2PBShQOYwkQIlLWAmPFU6F DQqqHQkB9thLQIxRQ1bxsja NOyhHBspZXKwmZB3GYHlrBL qP0EkWFStCKpzLZWlqcb6Hc QiEq2iyVIftJheRLilu5ugg 6uftQXhYbx1HBAdRzXxMhjq WModx8Nfp7ndMNHaoz8iBNE 4tBYusExny6Y9wGHvONPfnN QvJMTuDB0vhKWwBXFtfU4mx mxjXHBnYnJkcmhlYWRccGdi hsNlGa6zvDvkCAV2NLprI3y dpU8wBjQ0WZejJ9tzuX5gME z6CJsiZFAweLW5iaZ8DPNun DIzZ2ZdlY5hYRIeVK2wjxs0 s0byVSG0FTqbIIPbPnF3tqM 2LSSllKEeUWGzdNdbAWqod0 21DUR9NyOwTSEhv4SpW8Cec DjpV19gqLtqS85lLEWpbSfv eX3idXyqjN9fScNgXtFbDXg gcIzmUU6kEPMbG7dklWHyXY TgOINvR5buLuBgfG6fkRbcO DkdhpZzDDMnRoc2QIYzzSRa RPUlOyv3ADYaRHLnK28tmxu gOKQ5aL7ux6ssb9JbMLanXB W1BUDcb13rNVczcjM7GExwU n01WUqbNDU7XNbrHHP2oK== CPT Code(s) (test code e4yszLPnVIEhaNX0UnSkCJX = 3357) fe9uox1EukIBeaWUmQFmbvY ZmwfJjxg19vEK3fC85EZ0tF OVlPqE6AMGxrgM0Yge5VOPm TQIcsFNyW394b6xbl2fzbtM qbSU1eSrhLLQghpnwAjY2ZY fgXUEjrahjGPf4CQvkGRHkv OI5ROCelSJoS8KvWVKwQM7u abs6EPZ6XOuvTHBvXlB7CPF otHLmOAGssHvoWUzby546ML W0ZrSxRXQdzkWqgWpnoB8fA tOvLIF5PWZkZ5otWKF1 CLINICAL HISTORY (test y5bkjEMoMUZndKQ1QuBiXAG code = 3356) kr4bgo4DnaESxeEHlDJhhtI QluwSyht99wIS5jP38SP7rZ SKpEnH3QFVuowF0Jim4MCUs AWZklWXqI815e5wtm1kgwaK quMI1MQLxVOYmT0EeOW2fIG WpaHLiU82uvSOvJVZ7KENkA PCoeSJwPJCnXHZ8JHQqxDTu C4hpUAUyMN4vvkcrOEmoPAi zQUXdlQL4QBIsiSYvD1PuMM JfFVowOTIqpzj6BaOzCx5wy GVyeTcyMFxwYXJkXHJpMVxw mDBakbowcsTxBGSfAGZFm3R ooTTpf3Duf5a3nArqdQoaNV SEj8T4LJ9gq4IzmS1yUSayS QGnVA12DW70VBYkIHQzoZiz mVxoHVCNf0CudoCiNElaiEd sNIL0EN7irQ6nPKXoJPwqM4 5hbnRccGFyfQ== SPECIMEN SOURCE (test j8keqRPaTSFjjZC0MfVuLLM code = 3377) ws1fdu9KlxTSbuLZbHOhvbF UrurNoer96vLX3tQ96WY4sK YGaEeH4IBMxfrS0Ncp5UUEv CRAikDLhW825n9eya3jfwhB byKO6gWgsDSGxzjhgShR9NT idYUZibtbeXFh1DCewYAZal GU4PMWfkKEcO8FpLTPvVA7r rgl1XLB2XBzwLATuQtE6PYS txXQhWCFxeWbyTCdcl659BL Q9UtYmDJMglfPinVsgtU7gR sEaTCHZmO0sHOXcYPLdyd8= GROSS DESCRIPTION m6mmxHEhSPCvvWR2QlBpKRO (test code = ex9wsb1ApmJCxePHyGXujlV [id number]) FzkeHiys87oZA4mQ34HB3zM CJeAgL2SXSvdqG5Tfi7HLYw CPNurKMfD514s0sud2ugcfQ zkLK1vDmkAVXsgbudLgA5JJ ljYWIzsnehYOa6EChdKTWid NR6MCAmmDBzT7IyCHNpAE2g ikq1BXU9FEjmWFKlZjI5NDA knIZmAMShoZxtXHeki782WX U5OoRzHMFrmuN5XJxsZHSwK 8RiP3JoKUexKTF8CPYwEFPg ABTpATFtPWHnVLlcwnU5w1s cEBQqnDJwGUB5YMktwCJlBW LwUPHlLRrwChAMKaOnGwD3G RopRAGmCmK6PCk9FTTCCkKg LkZaMjK4EcM1AhSbOFa5HJo 5GSgLEiR2TDR8UDC8BatkYO EySyQtKVi5SJKtTSxtxRTpW THdMUIyJZtkNLilM38enSri tS8eYzWbWYXARuUVqZ1pEGW oLlxwYXJcZnMyMCBSZWNlaX ScSJAxjmDku4OfPYjdayOeC ECifYYlYVEuBMIcSFMwTD82 W4FileMeNSvaVQXtUSStzV3 mEC10uSDoxkLyltAcEzEpyn EuQZlxS7PlqIJhD8GxwExsE RrrSJFbKaRiHBD5NPKmKBQ0 GSMqADZdsTF1vw1owPPslQI tNQPqmhVma07sq5Dgn7JatD XubED3oBZrXMApZtLpLSSvu TIqxQ6vMGQvt7SxyZmcGUxp qxKzZMIYjBOpc6Tqu3TzNXv hGLLito3gaL2oGFUhkI5jiD ukFK9oZIf6qXDgOC8xRv5iG QDbPVYtmXUvqE5pozOnwpWz tKGhILFkhO4mqjB8YFKwTAH mpTGcBTTvfpjcIPSxN8WwrN npKXR3uZhqiIE9q2IzSM96T 04sJLK8xOD3HILgq3IeAHib GZ1mrx6mzUAxpLhkyFGsg7g jut0aRJ5aESAxg9CaSPYbYU jen7jfarJeSWOsARtgXV79n WZpZWQuICBSZXByZXNlbnRh xBq9INHdWFV8xP7qnsIbfbG di6DjgBw0aZYpXSlaVVJpHV SeOskqoF2xFGatbvBeDNnzD XIgQXJndWVsbGVzLCBQQSwg SDIbGTCTE9Sdt0gyrHrqi1N fhWNbSL41REYvrWQeFML3RX 7hbSttJEL1 MICROSCOPIC n2hyoUNfTVHkeJW7ExZpHRQ DESCRIPTION (test code nl7xog3OefNRuwPMsKUkvrR = 3371) IlicSjdz23cGM7qZ38KH6nL VJeBsM1CWGgemR2Pfc5IVYc GZNeiFRlX452k2npb2ovhvL srXZ2yPcoPUYkrkhbZtY9SP osMNPerjitBIz8JSvjROFhg XE9PYWxkDRvX2OuFQSoAN4j gur3BKR9NJjtHXFuOiM8NFT ujUVzIIJqmUpeQUmop756CT O4BzOgFZPtwfRifUhxvH9aZ mQdZMAGbcVwvOhsoJWtS2Sf jBPxqoSjHF9xZGZoa78sIRj gcNRpkNvqKHjlhDG8JWXhWI StUSkdKXineTait8pkIO0pD X6zsKyzplIiJ6izmRRuo3Nw jr9eCi8aYBGuaKZsKgRtuLH sWE8qX8Tfb9BqGI9fx15iSO PlIFNeNCZeUU5eLHBfkIUzd fWwt5QagK7rHdVlDHVncl9= Gross assessment was [facility] performed at ([facility], code = 2777) Department of Pathology, [address] [place] [address], Technical component [facility] was performed at ([facility], code = 2778) Department of Pathology, [address] [place] [address], Professional component [facility]'s was performed at ([facility], code = 2779) Department of Pathology, [address] [place] [address], [place] [address], [facility] [id number] 14:57:34 Test Item Value Reference Range Interpretation Comments Case Report (test code Surgical Pathology = 104) Report Case: [id number] Authorizing Provider: Jose Antonio Martínez Collected: 06/20/2022 11:46 AM MD Froilan Ordering Location: [facility] PER[facility] Received: 06/20/2022 01:27 PM SERVICES Pathologist: Veronica Mccoy MD Specimen: Stomach, PARTIAL GASTRECTOMY DIAGNOSIS (test code = [id number] 3220) uZzEwMzNcZnRuYmpcdWMxIH tccnRmMVxlcGljOTYwMlxhb vFzPEJcgRWpP3ZxnthmFRcl IC1hHR6seMudyZIfxZIfTDO yQlXht2pjr328vBVlw4vyBY DMbiowjHn6eHovH12wg6O6C uzuL59ahCCkJXG7QOQbWILc tLOaUSGaGLQ6VYFysDZtA9p zBYYgSR6rnuncXUxtVNswNF ExxCP3SIOpqXNiM7WdROSuT NgeCRXbrgq6ReXnRt4ylMOi eTcyMFxwYXJkXHBsYWluXGZ bTgGmXT6rF7NIEBQCWVshWO HCDDfIMZKRMOMWNoWPAW5HD HohyEVnFFQgHfDbL9bCClTE RwFIESURY3GeX3qACVLUEgP ESSlAOBZXH8SDQBVVKYYRB8 nVM4qNHXFPGEPZDXZHO68hx GFyXHRhYiAtTkVHQVRJVkUg Lz0USOtUPXvJK8NGX3MSJkJ IJLAYG71BW8XZYNPVRzYISw QQU3NTIS7WUJDUIIyCU3zmQ UC4k2fqjGGiFKYnyMSzDCSy MFxhbnNpXGRlZmxhbmcxMDM vEIJ7xiDlIYUcJJcpPMSpCJ qrUn4yqGQtzLsdDeFfNJTfp 3msfqBVznlzhAv1w1bmEUVs MjT8ySLyJEwbZ2oohuUriWH rYSGrPAu2vY57ECZpaP2eeF IaBHzmyqDnWcD1VNvgSNCqD yH5ZBBezHOdKNJyU2fbIOVn MVleTRUqIAepnARoTOJ4gTo fy9M4pAEjkJXbkDsuXrAvYb HtSjGRa1ExXQp2qXwsL8UnW BMnOtZ0rPHkWHCfFXjcSHOa PDPwhhY3jH11JEbjalM8lBD sg2Fmf40el839xX2ssSVqRB K4YDCmEOXtjUWpMITvHQZ4E SMjgYEyH0fnXAFgTW0nulpo PPupTDpgVMOinWV1FKAjdTX wV7KqBRLgAZrcFGNxknn0Em DxPi1beBQssNkrVZmak8isy 9dckGXpMng4USKkErZvQlmq JSlts9Der3nfOHRsvm5aXAS 5vFQcdFcwe6G0mBKhHUDatX ZrUZLgHW9yrHAiVHPzzY8td mxjXHBnYnJkcmhlYWRccGdi qiZiWm6dfXxjFWO6XDxbZ4q mhO9xGcO1GLrvP2bwjK2iAZ x5LZlkMKVitXK0kaZ5LVVii VIvP8MppX2yVLCwFH2kppj9 l5cjLXW8PNtlUTInBxK6ouU 6RKKdvUWjMJZjdTejXQahb0 93UKI7HvNyBRAqn7YxN4Cef InuI61nlMhpN06rSWAwyRxz pJ9aaTatfE2aAkNpDsUfQXz kwRqfXS0oDTRyH9wuzISfDX RuYDUiK0abWfKgdL5boRloC WdafmLpCJMlSca8RMNueSHj LMYkGzt8QFRvSCQfD40uzqk gEIU6kZ0ht0tyn5YzOGwxNM X4CBDyb51yTShovuL8UPpxU k62TXblSVN6AMxiQCY8wJ== CPT Code(s) (test code n6rznJWuUFXptSW9UcNvYZX = 3357) om0thi2FslDDneALcZDsfeD LlssOkqk32kHX8qO35VE6bL DZdVyM2FQDrsdP1Xsw6DRFp QIWgcMDnF074x7hlm1bysfO zyKI4lUvzIYEnlpwzElI5BZ xrDVQvojxxZMf5XIldZXHqu SD9WDLldXXtV7ZnBOVhFT1f zah4BPU5HCxqKBJyZyV8XJG stFLiIPFoyKzgJUzho821TL S4QePnXSVbiqMrfSaseI0rS uExMXV7QUBkD0zvSHT5 CLINICAL HISTORY (test s8usaVKgWCGhdXF4XgFfDRO code = 3356) dp6bmx9KmcTTjiFQnSByjqX DeahUhgx68eJS8nS49GC8jT YBhFcJ6CGQrdtG3Jlq3CVFg RVKlmVSqE143x6nku7uwsxT nhKY2NVRbJRUyC7FvKA0qNM YmiHRuX70tjDKeLDO1PRPgD RDbnANuJQXzEPO6ZQCkmMTg S7beVPQuZG1kjwsfIMmcMKm sHLUjlDB4ZKXysSSbG2FtJW HtEGibFLJndrz2ArDnSe6ov GVyeTcyMFxwYXJkXHJpMVxw qWPcwebfymLhFSFbGCOKr9V zdCSnr4Nae6u0qRhqkZpcXW VUy6P1SR3nu1IwdW2kIMbqQ IOrBW58WY88QHDtQLOatJuy zKsnSJVOv8AzzjVaUFxbaVw gNRN5RE8wbB1xAPIwRQflM2 5hbnRccGFyfQ== SPECIMEN SOURCE (test w9zlvCHxCMTrsER9SoMlQQT code = 3377) ve0nzb0RubXXvtCVlMMtneS KrrjQccd77aLX3wM87NG7lS PEtAjC9JCXakrW6Ztn3RNXq GRGitERgH214e3pvt5megwU zyCP0nOmpKNStlzspSwE6MT yhNMBxoferZSw5ORixCGEik EC2MEWvdULzM3CxVZEgQW4w cnv9ZJW2TNiyTOBpNaZ2XTZ xmUVuOWWjlNhqAHaao118YW S5HdGuGKMaaeXohKfofR9nL bHqAXIGlL1mNUEpDIMbiv5= GROSS DESCRIPTION j3wbmLEvVGTpwQK0OrIkDIP (test code = jj0zmc0AhzSJeaOBeNFudlG [id number]) StlhXycw79cOI5iI02TO1vE SOyIjE0NIZdyqV1Sgp4DOKc XGUcjGQuG309y7ruo2ftxbC gzTS1mUpsPEAifvcpQjO4BV biSHXoamkwECs9TMybEELzw HF0BVXynNHkE4FcHJOiFL1h vwf0CZA5VZjzGRBeOjT1PXR qkTJyLQTfqZqxFIahx956YW P7OjVjUBUuhnJ9APhnBAXsL 9OjL4HvPItvDWA0VYDhXFQl RTNqNZDaLLHiYCeoyzN6t6j zHKZjuUKaMTR1DAcngEAeTD DyCWLoHKfrQjYKEjZoTyG9U IkgSRKgHgZ8CQx0IFLZPdWa TeRtIfC6WzP9VxSaXLy5QEp 7UQkCWsA2YMJ2PWG1JqsrFY SrSwOlEMj8YULqEVjbrRAlE QZcBHQqCFndUBlrD91tkHka kH1zMqYwOEPAZmRHlC4cKAZ oLlxwYXJcZnMyMCBSZWNlaX UtUPTchdWlr6DiVDkyouOtM QQgjMTlYYYwHUQyXZAuOZ47 W4HbbdJsTYczHLUwGHUheC4 rBA61aPGhmtVnusEfDiVsem IvHAtyH3ZvjBUbO7HmxNhoF DomNWAnWbVyUTE7VECaQIM9 IIFiGYVijMX3dp6dbMItvNB cYXBippGjo88qw8Bwg7QjbU QrvID0bRLoHZUtIjKpOCPyq ESfwC9sQAAzl6EnnTxgXHmp ymPtJICVkAOyb8Uwz8SyGPq aMBUwik1akY2rHDVjiJ4llM fnAW2tCZq7fMWpYR6eYw3uD RWdFZJvsWQtoJ7izuYyciXb zDNsPAXapT3gkcN0FANaKTS loMZrYGRfmgchJSNzB6YatN eyHDV9hCczdPZ7v2QgMZ01Q 18sCLW0oNY2PCGfy6DrXVcf YZ9kzp3tkRMjoXsmoOFxj7s vbb0mIE0oJFGkp5ChPZNeXF rbf9ewdxGkISJuPStzJB49h WZpZWQuICBSZXByZXNlbnRh pLz7TTJvRZG4yP1tpaEuwmM ff4WgkOr4jFQrXUreUXLjMO WyYrjrgY6kMGwxerCqKJziH XIgQXJndWVsbGVzLCBQQSwg WRSiHRGWA6Tjx7rjuAggq1X pdHKxKP22ULVxfHCqODW1FW 3ezTpbEGU2 MICROSCOPIC u9rgwZGqNSYorXL4OzWcMUS DESCRIPTION (test code kk5uyy0LkxRUsoQWgXXvrvL = 3371) YrnkZfpx81sOW2bR02NS3oO ENpBmW7WPMvgsZ1Iqa8NITf BVSkfJLoD313c8wtz2jsvfB fnQM1cQdsMZEoyxvvZhK6DH zsYEClaevjGCr1MMajDWUdg SB2NQVgrAOhB7YaABYuYV3t rif2KDF6CYbiWPYpRwQ4FYF fyJSfSGKxrZpyUGqgg405OX D8UcVdHMCesiNkdDewlW4uM pSqMZPJtgGyeDljcIAiH1Aj zZFtriSyQU5zYORtm07aFQk vdGKdiYqoFXxxrGD1CYSwQF OtNQmqCEzvcFjwa0naPQ5fH Q3zaFfnbrOjO7mmbPPer4Op bs2hEu5sBZYlnCJeXgNhmZE hEB8zQ9Gzp6RpQM7oy25eSH YyTKGiYFFpZY8iKYSgeHEoj rTnr1YsuX1rWaEvSGGmip0= Gross assessment was [facility] performed at ([facility], code = 2777) Department of Pathology, [address] [place], [place] [address], Technical component [facility] was performed at ([facility], code = 2778) Department of Pathology, [address] [place] [id number], Professional component [facility] was performed at ([facility], code = 2779) Department of Pathology, [address] [place] [id number], [facility] [id number] 14:57:34 Test Item Value Reference Range Interpretation Comments Case Report (test code Surgical Pathology = 104) Report Case: [id number] Authorizing Provider: Jose Antonio Martínez Collected: 06/20/2022 11:46 AM MD Froilan Ordering Location: [facility] Received: 06/20/2022 01:27 PM SERVICES Pathologist: Veronica Mccoy MD Specimen: Stomach, PARTIAL GASTRECTOMY DIAGNOSIS (test code = r3gjdJQsVGBde0abNWVwyRH 3220) uZzEwMzNcZnRuYmpcdWMxIH tccnRmMVxlcGljOTYwMlxhb wWmHJKnpTDbM2WqtagkLZyn CV4jOX5yqIzgeAUleJPnJJU kNcMsp3ebc748xHQye7iwOF BUqvfyzSj1lNnzP26fo7O7W aipP40iwLLzDVE4OLSyQKMj iEQeNSNwJSV2CEVojYTjY6x bVMRvLS9uyymyVGxhVLdqKU CatET9CEVyhFHfV6AqVBAtK JkaDBZavew8CbKqId4fxKYe eTcyMFxwYXJkXHBsYWluXGZ sLxGmKM9xL9LCNXYYKBbiUM LRQLlNYHVGSMMAVaFKCD1IY MzdqKXpTWBjCcVxP9vQLoXI ErZZNMVEF2WpQ2xXXNSHZpT ZCXyHCUBDK0SPQXYBBHNRY4 iQY2wJPVNKFAUNXHPPT21xq GFyXHRhYiAtTkVHQVRJVkUg Gz6GKFjIPBlEJ9CVV7ELCpR LONFAS18JC6OWDZFUHgQYHc NSO5PGFI0MTFBJEJqXS6qdO YQ6x6lziQDlYGMksKCjNHFt MFxhbnNpXGRlZmxhbmcxMDM aPDR0vtMlDIWhDHblALBvRK zoAo9qjVNduMbgBhRiIVGtj 1yvcwBUguvlzSz7f4jcQHLp WlN5qLGcFGjrB0dozxAbdPL mGXMlFFw4mT91OZIrcG6fcJ RiNPofacBoNvO9LZnyAICqP bD6QGLxnITaYFRyC9bjRRBa UUecNKEtNGtyqPCiUHP8xSl bk2B4oPGbbQQimMcbKmXnOj KnFfTNt6GuGOx0aRruZ2KzC UTaRmF7kXRdEMRtIKujMJEw QWSxspW5tB86QZmpayK6cRC eo1Ogw44ks119cV6wlRYeEZ A7WPXhHBQlrRJfUPIfTQT2S IPgmQLiF4gwROTaTL1eehls LKkvIIoeHKMtsRX5RJSrwUK oA8AjFMCdWBojHMWbdvj2Aq SdKd1kpCBilGvaYEnfe2ivh 4nuuQKgRsc2WCNfShTcTjyn UBvjw9Xxp9adTTCcmk9sBIP 7yMMygAtcl2E2kRFlSBEcmX DxSCAoEW0prRHrKDSvrH5hl mxjXHBnYnJkcmhlYWRccGdi mqQwRh2lcHgaWOU5OIgkY8i jeZ6lEmZ1DCveZ1eatL6rOQ c4PRtdGUCflZP7chZ7WSHvu WAuE0MvdL8jRMBgGL7qzqh3 b4hsDXI2FIuzHIAjVzX3zcH 7MVZpwYLxJILluEzrLYizl0 72BKP6JhOlMSYrc1UoV1Zyd BbeT88nqVyvQ27nUAKtbIyv yS2chLkusL2xIkTvWzDdJOf zgGgwJW9aHRSnB5ejvGTfEY AzQXJxG1urVoNvmU2yiQogK NuxxhArIYEeMse8YWWgoZBe HCRtPax8YJNzUDEzC27ufoe jYDJ2bV5um0gmc6XbULqxKK C1SCVvq12kAWrwkoY7KPtbK t38DSftGIP6ZAzsPOB9iY== CPT Code(s) (test code s6uoaWRmFBGquLI1FeLaKDX = 3357) hd4udk9XkuKEhcTRrSXycsR VclcIqmu87wMM4sK00WS4yY TWgWmS9YSLuvnN8Twc6BTJu XTMzbGBwM652g6nqo8dauvI tzMB3eOsmRWPthspzYhM6QW cdZMMofjuyLRw2LBxqYFXdp PX8YQGdhNQqA4JtAAAdNS4p uqk2URG2VGcgVDYqYjU1CPI vqBHuFIZihUsqJEulq995RH Z9UiFzJKMlslNgpQrspP0jG eWrULX6FZUlI9lsKJH6 CLINICAL HISTORY (test t1xbxPYcRCOakSW8PuRcGWU code = 3356) ib4rnp7KnjAYogLKxUTrcxR NjobSwoo68dNF3pU10QJ7nI JLjSsY8UXZegdH4Guj6NYGn SOCqhGCpY798l7orp9xunmC ifOJ7ULLgYOPhH7UpIF6kFW DxzGMtX37fhRTnOHD0TUZoX OWwgBYpOOWgWQH7KLGdwCEu O3agCMWgIV5rjdkwXFscBIp rYMLqzFJ2FOHcpLKyU9ClEI ZwMDbsARJzpgj8WwGgOp8vp GVyeTcyMFxwYXJkXHJpMVxw xBQxuuqachYiZQZuUSSEt1J jiJRht5Kif9m9xYbvrTzrSG CQi5G5HS2mq5IajG0nXWgpV BEfRN78GR24OARhPXKshGjb oKguQNZQa8JboaVuZSyqmQt zODN5UZ5esY2iCPNzHGixX2 5hbnRccGFyfQ== SPECIMEN SOURCE (test u6qspHQwTVUynIH8QoJgWLC code = 3377) wf1kfc0QymJWggPBuAMssqC QwvmKjkn74eMA0bE07ME0pX OFfDkP7ZQUuxlE3Jsy9PMLl TPToyDLmE388q1zkc1dggnD cxAQ4hDxaKRTciifbYfU9AZ frQHNenbpqOJn4ARywIPWsu QA5UYMgbZFpC9LaNQZiZD2z sqj9TRX8WTsuLKYhHnW5TYL iwIPcKKDgcXczYRjam720JB C1XqUvXTJmpvGffVcziR0wT gIaZCBDmF6oPKWaTOTjln1= GROSS DESCRIPTION a6koqINpHTAksXA5OyFtCFW (test code = jx9ibf7GcdRFbjAWeURmzbH [id number]) MqygErmc29bKW6kE92QN6kH AUlUxF8DQVfxwQ0Kgw7FDZm RSVnhLPnH382l3brp2szuuX whZQ8kAxdVDNvjwqsAbJ3QR elUCEgitdyXSe8YOuwLLXkf ER9RMVgbHIoV9IkKDKcAO5d gou5FXQ1AOglVYIeVyX7NLF bkJRwKKQjoOzlSDkqk454DR G4XtGgKLPkqzG1SWhgGAVjL 8WoV9VzMBwoMIA6VFOtFUMu SHObFQHiUUTdXBmkrlA2e9z pIGAgkNViFOO6SCpmgRDwTZ CdDNSpMOcyAiRHFkRlOmG4K MkyDDCcIcR3NOv5YQCCQePc QoIaQxL9NsE9VrAqNLa5BDe 6ZSfKTiC5PTC6QRJ5QosnNY LjOmEbEIy4XRNsHKazsCVdS DIwNCXbYBadJPkfG83piPxz jY6zDcZsJKAQOwUFoP7eHLS oLlxwYXJcZnMyMCBSZWNlaX FqVHTiapFay3KdSHrysxLjG XOcvIXqUEWgUUSxNOTmZZ18 E9KzsxAlNSmgQGZdWKFrfD5 yZS86aJTzqrGgzeQeVaEdfi SnQQmgV4MmxSQwG8FduFkmE PbyCGRwJqXbKVZ9DUTcHKU4 VDBuQLMejGE9fe5mbDKxvJF vZTIswyQpr08lr1Izh6LljX UevLJ3yZApMJYnSuLsNEKjj ZAarR7pWJWtt4LytGhbRGfk msLrGEONmAIxr4Ktg9LpIPn hPYTbwd7tvR1xOPPjdC5enF hnZC3vRLv0dVKnIT4sUu9eM CThTUJfsRWmqO3yleCmwaWp lVKcACYhuK1mhtY2DXZiSEK vdVDeZEJkksxsZWOdM5IhcG iaYVH5yQqpvYK5b4WvUQ27G 29pBDG6fHG8XHOel2HlTHuq MC0wds3iuTYnwVwnuBGiu2k bcy4jIV1sHLVxm4TdKHFiGM ybq1vbgqOeZRAeVWbtBL49o WZpZWQuICBSZXByZXNlbnRh iZa2DJUaDYH5yL4qjfQqslA ih5JyiFy8ePWoIQuwJLNiTO LmHvtksE0qHJtwjkRxSOblY XIgQXJndWVsbGVzLCBQQSwg YXCjMNVAL9Nab6rujBrpg1F kzMLmHO11MFSfeRSwQJS5VE 0dyQqwERK9 MICROSCOPIC e2huvSOcOURtxTK7CdUtCTP DESCRIPTION (test code jy3zud4FivUKltRCcXKrxoS = 3371) SisvQhwb88jHI2hP51VP4dK OAmQiU8PJRswnS9Pqh9SDOp TTIulYMsY977a9tju2qcotP fqFS0cRjrUIJhnzdnTiM1ME ynROKucrxjSXw6CQgnIQQna BJ3RPYnrISyW4RaOQLvAX1t fct8DHZ8UAndXAClSoV4LST rmLJfBNFdcYbpPSypk375NB E2YfRoMRZqshDdeWsucX3cZ qAxGCGHvpXpuXsycOTpH8Su tJArslWlHI7hNYFte31zOLu ddABumItpVEixdHG8WXEkAE GaSMknJVcqcLkzp7qvQP0kJ R8jpWrpqsVhB4inyPYgq0Gc aq9nAp7sKZJtbGVzInPqgWK eVZ3xL0Fnz8JyFI0yv38zUC JsHHHsTOXeGS4dJDAszBWpc fIhg2NgiI7iUoGgXRTmnf8= Gross assessment was [facility] performed at ([facility], code = 2777) Department of Pathology, [address] [place] [address], Technical component [facility] was performed at ([facility], code = 2778) Department of Pathology, [address] [place] [address], Professional component [facility] was performed at ([facility], code = 2779) Department of Pathology, [address] [place] [address], [facility] CampusTISSUE [id number] 14:57:34Surgical Pathology Report Case: [id number] Authorizing Provider: Jose Antonio Martínez Collected: 06/20/2022 11:46 AM MD Froilan Ordering Location: [facility] PERIOPERATIVE Received: 06/20/2022 01:27 PM SERVICES Pathologist: Veronica Mccoy MD Specimen: Stomach, PARTIAL GASTRECTOMY A. STOMACH, PARTIAL GASTRECTOMY: -OXYNTIC MUCOSA WITH NO SIGNIFICANT PATHOLOGIC ALTERATION -NEGATIVE FOR HELICOBACTER MICROOR GANISMS ON ROUTINE STAINS Signing Pathologist Direct Phone Line: [phone] signed by Veronica Mccoy MD on 07/03/2022 at 2:57 [id number] obesity,Body mass index 40.0-44.9, adult,Essential hypertension, malignantStomachA. [...] rugal folds. No discrete lesions are identified. Baby Attendant sections are submitted in A1-A2.NITHYA Villalta, HT (ASCP)No significant inflammation, intestinal metaplasia, dysplasia or malignancy is seen. No Helicobacter microorganisms are seen on routine stains. [facility], Department of Pathology, [address] [place] [address], [facility], [address] [place] [address], [facility], [address] [place] [address], Yyreeucbdk w/Microscopic + Reflex to [id number] 12:36:01 Test Item Value Reference Range Interpretation Comments Color, UA (test code Light Yellow = 5778-6) Clarity, UA (test Clear code = 5767-9) Specific Holland, UA 1.014 1.001-1.035 (test code = 5811-5) pH, UA (test code = 6.5 5.0-8.0 5803-2) Protein, UA (test 10 mg/dL Negative A code = 49714-2) Glucose, UA (test Negative Negative code = 365) Ketones, UA (test 60 mg/dL Negative A code = 2514-8) Bilirubin, UA (test Negative Negative code = 41002-5) Blood, UA (test code Negative Negative = 66122-3) Nitrite, UA (test Negative Negative code = 5802-4) Leukocytes, UA (test Negative Negative code = 5799-2) Urobilinogen, UA 0.2 0.2-1.0 (test code = 32676-2) RBC, UA (test code = 0 See_Comment [Autom ated 26636-7) message] The system which generated this result [...] . Bacteria, UA (test Rare code = 49217-4) Mucus (test code = Rare 8247-9) Squam Epithel, UA 5 See_Comment [Automate d (test code = 00717-3) messag e] The system which generated this result transmit svetlana reference range : /HPF. The reference range was not used to interpret this result as normal/abnormal . Specimen Source (test code = 2795) PEYTON (test code = PEYTON) Recreation Director ID - [auto] Lab Interpretation Abnormal (test code = 13453-9) [facility] CampusURINALYSIS W/ REFLEX URINE [id number] 12:36:01 Test Item Value Reference Range Interpretation [...] = 516) SOURCE(BEAKER) (test code = 2795) Recreation Director ID - [auto]POC-Glucose [id number] 05:47:52 Test Item Value Reference Range Interpretation Comments POC-Glucose Meter (test 133 mg/dL 70-110 H : TE STED AT [facility] code = 1538) [address] [facility] 30: Recreation Director/Techni sandy ID = [id number] for SUSANTURNER VALENZUELA A Lab Interpretation (test Abnormal code = 42704-6) [facility] CampusPOCT-GLUCOSE [id number] 05:47:52 Test Item Value Reference Range Interpretation Comments POC-GLUCOSE METER 133 mg/dL 70-110 H : [facility] (BE[facility]ER[facility] (test code = [facility], 153) [address]: Recreation Director/Techni sandy ID = [id number] for DA MASON, RAS POCT-GLUCOSE [id number] 00:31:43 Test Item Value Reference Range Interpretation Comments POC-GLUCOSE METER 151 mg/dL 70-110 H : TESTED A T [facility] 6720 (BEAKER) (test code = [facility], 153) [address]: Recreation Director/Techni sandy ID = [id number] for DA MASON, RAS POCT-GLUCOSE [id number] 18:02:33 Test Item Value Reference Range Interpretation Comments POC-GLUCOSE METER 197 mg/dL 70-110 H : TESTED A T [facility] 6720 (BEAKER) (test code = [facility], 153) [address]: Recreation Director/Techni sandy ID = [id number] for Ak ens, Chellsi POCT-GLUCOSE [id number] 06:47:36 Test Item Value Reference Range Interpretation Comments POC-GLUCOSE METER 118 mg/dL 70-110 H : TESTED A T [facility] 6720 (BEAKER) (test code = ALICE DUARTE MD, 1538) 11879: Recreation Director/Techni sandy ID = [id number] for ED WARDS, VICKI POCT , [id number] 06:25:00 Test Item Value Reference Range Interpretation Comments Test Urine, POC (test code Negative = 8549138) Control line present?, POC (test Yes code = 0562205) Background clear?, POC (test code = Yes 9433964) UPT Cassette Lot #, POC (test code = 6766716 0278210) UPT Cassette Expiration Date, POC 7581538 (test code = 5474148) [facility] CampusPOCT , [id number] 06:25:00 Test Item Value Reference Range Interpretation Comments Test Urine, POC (test code Negative = 2809512) Control line present?, POC (test Yes code = 7986672) Background clear?, POC (test code = Yes 7695918) UPT Cassette Lot #, POC (test code = 6069365 2330785) UPT Cassette Expiration Date, POC 3884523 (test code = 7095224) [facility] CampusPOCT , [id number] 06:25:00 Test Item Value Reference Range Interpretation Comments Test Urine, POC (test code Negative = 1220087) Control line present?, POC (test Yes code = 2403271) Background clear?, POC (test code = Yes 6192681) UPT Cassette Lot #, POC (test code = 7027534 0914121) UPT Cassette Expiration Date, POC 0972917 (test code = 8140278) [facility] CampusPOCT , [id number] 06:25:00 Test Item Value Reference Range Interpretation Comments Test Urine, POC (test code Negative = 8428507) Control line present?, POC (test Yes code = 7664345) Background clear?, POC (test code = Yes 5482342) UPT Cassette Lot #, POC (test code = 8725758 8041654) UPT Cassette Expiration Date, POC 5078334 (test code = 9276328) [facility] CampusRAD, CHEST, 1 VIEW, NON [id number] 20:08:00Reason for exam:->CHEMICAL EXPOSUREperfect US materhorn whiteShould this be performed at the bedside?->No [facility] 1980 Sex: [...] MD on 06/19/2022 08:08 PMBUN AND CREATININE [id number] 14:39:37 Test Item Value Reference Range Interpretation Comments BLOOD UREA 23 mg/dL 7-21 H NITROGEN (BEAKER) (test code = 354) CREATININE 0.76 mg/dL 0.57-1.25 (BEAKER) (test code = 358) BUN/CREAT RATIO 30 For a normal individual on (BEAKER) (test a normal diet , the code = reference inter sneha for the 4654149690) mass ratio rang es between 12:1 and [...] not appl icable for dialysis patien ts Recreation Director ID - [id number] 14:39:35 Test Item Value Reference Range Interpretation Comments SODIUM (BEAKER) (test code = 381) 136 meq/L 136-145 POTASSIUM (BEAKER) (test code = 3.8 meq/L 3.5-5.1 379) CHLORIDE (BEAKER) (test code = 382) 108 meq/L 98-107 H CO2 (BEAKER) (test code = 355) 21 meq/L 22-29 L Recreation Director ID - [id number] 13:43:25 Test Item Value Reference Range Interpretation Comments HEMOGLOBIN (BEAKER) (test code = 13.1 GM/DL 11.2-15.7 410) Recreation Director ID - [id number] 09:17:18 Test Item Value Reference Range Interpretation Comments Scan Result (test code = See scanned report [id number]) PEYTON (test code = PEYTON) See scanned report [facility] CampusUPEP2022-09-27 09:17:18 Test Item Value Reference Range Interpretation Comments Scan Result (test code = See scanned report [id number]) PEYTON (test code = PEYTON) See scanned report [facility] CampusUPEP2022-09-27 09:17:18 Test Item Value Reference Range Interpretation Comments Scan Result (test code = See scanned report [id number]) PEYTON (test code = PEYTON) See scanned report [facility] CampusUPEP2022-09-27 09:17:18 Test Item Value Reference Range Interpretation Comments Scan Result (test code = See scanned report [id number]) PEYTON (test code = PEYTON) See scanned report [facility] CampusMISCELLANEOUS LAB [id number] 09:17:18 Test Item Value Reference Range Interpretation Comments SCAN RESULT (test code = See scanned report [id number]) See scanned reportRAD, SHOULDER, COMPLETE (MIN 2 VIEWS), [id number] 15:24:00Reason for exam:->right shoulder pain [facility] ASHLEY : 1980 Sex: FFINAL REPORT Exam: RAD, SHOULDER, COMPLETE (MIN 2 VIEWS), RIGHTDate: 03/17/2022 3:23 PM Indication:right shoulder painComparison: None DISCUSSION/IMPRESSION: AP internal/external views of the right shoulder was obtained. Osseous structures appear well mineralized.Osseous structuresappear intact.Joint spaces are grossly preserved.Soft tissues are within normal limits.No radiopaqueforeign bodies. Signed: Alexandru Aazr MDReport Verified Date/Time: 03/17/2022 15:24:31 Reading Location: [address] Consult Reading Room , JADEN, [id number] 13:30:00Unlisted Reason for Exam - Click Yes and Enter Reason Below->No [facility] : 1980 Sex: FFINAL REPORT MR, BRAIN, [...] intracranial hemorrhage, or mass. Signed: Bang Rodriguez [facility] Verified Date/Time: 03/17/2022 13:30:05 MR, SPINE, CERVICAL, [id number] 07:16:00Unlisted Reason for Exam - Click Yes and Enter Reason Below->[facility] : 1980 Sex: FFINAL [...] Rodriguez MDReport Verified Date/Time: 03/17/2022 07:16:46 VITAMIN [id number] 13:00:00 Test Item Value Reference Range Interpretation Comments VITAMIN B-12 343 pg/mL 200-1100 Please Note: A lthough the (test code = reference range for cemqelmP38 2132-9) is 200-1100 pg/ mL, it has been reported that b etween5 and 10% of patients wit h values between 200 and 400pg/mL may experience neur opsychiatric and hematologic abnormalities due to occult B 12 deficiency; less than 1%of patients with values above 40 0 pg/mL will have symptoms. Performed at: [facility] [address] [address] MIGUELITO DIAZ MD [facility] HollywoodPYRUVIC [id number] 13:00:00 Test Item Value Reference Range Interpretation Comments PYRUVIC ACID (test 0.75 mg/dL 0.30-1.50 Performed at: AMD code = 2905-8) [facility]/[address] RACHEL REINOSO MD,PHD [facility] HollywoodURINALYSIS W/ REFLEX URINE [id number] 18:29:33 Test Item Value Reference Range Interpretation [...] = 1521) SOURCE(BEAKER) (test code = 2795) Recreation Director ID - [auto]Recreation Director ID - techPROTEIN ELECTROPHORESIS, SERUM WITH REFLEX TO [id number] 14:31:04 Test Item Value Reference Range Interpretation [...] Normal electrophoretic (BEAKER) (test code pattern. = 0101) [id number] Maulik [place], M.D. 9 (BEAKER) (test (electonic signature) code = 2616) PROTEIN TOTAL 6.0 gm/dL 6.0-8.3 SERUM, SPEP (BEAKER) (test code = 2660) Clinical Hydrodynamics Professor - SFOperator ID - BSOperator ID - ADMIMMUNOFIXATION + PROTEIN ELECTROPHORESIS - [id number] 08:00:00 Test Item Value Reference Range Interpretation Comments PROTEIN TOTAL (test code 6.9 g/dL 6.1-8.1 = 2885-2) INTERPRETATION, GINA (test N ormal pattern. No code = 67412-5) monoclonal p roteins detected. ALBUMIN ELP (test code = 4 g/dL 3.8-4.8 2862-1) ALPHA 1 (test code = 0.4 g/dL 0.2-0.3 H 2865-4) ALPHA 2 (test code = 0.9 g/dL 0.5-0.9 2868-8) BETA-1 (test code = 0.5 g/dL 0.4-0.6 40629-7) BETA-2 (test code = 0.4 g/dL 0.2-0.5 35901-3) GAMMA GLOBULIN (test code 0.9 g/dL 0.8-1.7 = 2874-6) INTERPRETATION SPE (test Al pha-1 globulin code = 94319-3) increase not ed. Performed at: I G [facility] [address] [facility] [place] [address] ALLYSON DIAZ MD Lab Interpretation (test Abnormal code = 81258-5) [facility]OL[facility] [id number] 05:59:37 Test Item Value Reference Range Interpretation [...] not appl icable for dialysis patien ts Recreation Director ID - BSHEPATIC FUNCTION [id number] 05:59:37 Test Item Value Reference Range Interpretation [...] Specimen slightly (test code = 347) hemolyzed Recreation Director ID - [id number] 05:59:36 Test Item Value Reference Range Interpretation Comments MAGNESIUM (BEAKER) 1.9 mg/dL 1.6-2.6 Specimen slightly (test code = 627) hemolyzed Recreation Director ID - BSVITAMIN [id number] 04:25:50 Test Item Value Reference Range Interpretation Comments VITAMIN B12 (BEAKER) (test code = 515 pg/mL 213-816 774) Recreation Director ID - ALANA MTSH/FREE T4 IF [id number] 04:25:50 Test Item Value Reference Range Interpretation Comments THYROID STIMULATING HORMONE 1.504 uIU/mL 0.350-4.940 (BEAKER) (test code = 772) Recreation Director ID - ALANA MCBC W/PLT COUNT & AUTO [id number] 03:33:10 Test Item Value Reference Range Interpretation [...] SARS-Co V-2 (test code = target nucleic 85221-8) acids are not detected in thi s [...] revoked sooner. Fact Sheet for Healthcare Providers: https://www.[employer].com/Documents/Xp ert%20Xpress%20SAR S%20CoV-2/Fact%20S heets/302-3802%20S ARS-COV-2%20HEALTH CARE%20PROVIDERS%2 0FACT%20SHEET.pdf Fact Sheet for Healthcare Patients: https://www.[employer]/Documents/Xp ert%20Xpress%20SAR S%20CoV-2/Fact%20S heets/302-3801%20S ARS-COV-2%20PATIEN T%20FACT%20SHEET.p df Lab Interpretation Normal (test code = 57447-4) [facility])2022-03-14 23:41:10 Test Item Value Reference Range Interpretation Comments SARS-COV2/RT-PCR Negative Negative The SARS-Co V-2 target (test code = nucleic acids a re not 3915921) detected in thi s specimen. Negative result [...] revoked sooner. Fact Sheet for Healthcare Providers: https://www.[employer] m/Documents/Xpert%20Xpress%20SARS%20CoV-2/Fact%20Sheets/302-3802%40VYHU-MEG-0%20 HEALTHCARE%20PROVIDERS%20FACT%20SHEET.pdf Fact Sheet for Healthcare Patients: https://www.[employer]/Documents/Xpert%20Xp ress%20SARS%20CoV-2/Fact%20Sheets/302-3801%54MAPJ-HMK-0%20PATIENT%20FACT%20SHEET .pdfHCG, QUANTITATIVE, [id number] 19:05:54 Test Item Value Reference Range Interpretation Comments GONADOTROPIN, CHORIONIC (HCG) QUANT < mIU/mL 0-10 (BEAKER) (test code = 649) Non- Females: <10 mIU/mL Females: Gestation Age Reference Range(mIU/mL) 0.2-1 Week 5-50 1-2 Weeks 50-500 2-3 Weeks 100-5,000 3-4 Weeks 500-10,000 4-5 Weeks 1,000-50,000 5-6 Weeks 10,000-100,000 6-8 Weeks 15,000- 200,000 2-3 Months 10,000-100,000 Recreation Director ID - BSCOMPREHENSIVE METABOLIC PANEL 2022-03-14 18:54:30 [...] not appl icable for dialysis patien ts Recreation Director ID - [id number] 18:37:27 Test Item Value Reference Range Interpretation [...] mechanical heart valves.CBC W/PLT COUNT & AUTO [id number] 18:28:24 Test Item Value Reference Range Interpretation [...] 0-1 PERCENT (BEAKER) (test code = 2801) [id number] 18:08:05 Test Item Value Reference Range Interpretation Comments PHOSPHORUS (BEAKER) 3.0 mg/dL 2.3-4.7 Specimen slightly (test code = 604) hemolyzed CT, BRAIN, WITHOUT IV [id number] 18:03:00 [facility] : 1980 Sex: FFINAL [...] No acute intracranial findings Signed: Bang Rodriguez [facility] Verified Date/Time: 03/07/2022 18:03:33 [id number] 17:53:23 Test Item Value Reference Range Interpretation Comments MAGNESIUM (BEAKER) 1.9 mg/dL 1.6-2.6 Specimen slightly (test code = 627) hemolyzed COMPREHENSIVE METABOLIC [id number] 17:53:17 Test Item Value Reference Range Interpretation [...] patien ts CBC W/PLT COUNT & AUTO [id number] 17:34:47 Test Item Value Reference Range Interpretation [...] PERCENT (BEAKER) (test code = 2801) [place], [id number] 11:31:00Reason for Exam:->gastroesophageal reflux disease unspec whether eso [facility] : 1980 Sex: FFINAL [...] Bradley Healy MDReport Verified Date/Time: 01/15/2022 11:31:49 [facility] [id number] 21:58:00Unlisted Reason for Exam - Click Yes and Enter Reason Below->YesUnlisted Reason for Exam->potentially UC flareIs this for enterography?->NoWill this procedure require oral contrast?->No [facility] : 1980 Sex: FFINAL [...] Case MDReport Verified Date/Time: 10/03/2021 21:58:27 SARS-COV2/RT-PCR ([facility])2021-10-03 21:02:26 Test Item Value Reference Range Interpretation Comments SARS-COV2/RT-PCR Negative Negative The SARS-Co V-2 target (test code = nucleic acids a re not [id number]) detected in thi s specimen. Negative result [...] revoked sooner. Fact Sheet for Healthcare Providers: https://www.[employer] m/Documents/Xpert%20Xpress%20SARS%20CoV-2/Fact%20Sheets/302-3802%56BUKO-CNG-7%20 HEALTHCARE%20PROVIDERS%20FACT%20SHEET.pdf Fact Sheet for Healthcare Patients: https://www.[employer]/Documents/Xpert%20Xp ress%20SARS%20CoV-2/Fact%20Sheets/302-3801%07UIAU-IZS-6%20PATIENT%20FACT%20SHEET .pdfB-TYPE NATRIURETIC FACTOR (BNP)2021-10-03 21:01:58 Test Item Value Reference Range Interpretation Comments B-TYPE NATRIURETIC PEPTIDE (BEAKER) < pg/mL 0-100 (test code = 700) Recreation Director ID - BSHCG, QUANTITATIVE, [id number] 21:01:53 Test Item Value Reference Range Interpretation Comments GONADOTROPIN, CHORIONIC (HCG) QUANT < mIU/mL 0-10 (BEAKER) (test code = 649) Non- Females: <10 mIU/mL Females: Gestation Age Reference Range(mIU/mL) 0.2-1 Week 5-50 1-2 Weeks 50-500 2-3 Weeks 100-5,000 3-4 Weeks 500-10,000 4-5 Weeks 1,000-50,000 5-6 Weeks 10,000-100,000 6-8 Weeks 15,000- 200,000 2-3 Months 10,000-100,000 Recreation Director ID - BSHIGH SENSITIVITY TROPONIN I 2021-10-03 20:36:14 Test Item Value Reference Range Interpretation Comments HIGH SENSITIVITY < pg/ml See_Comment [Automated message] TROPONIN I (test code = The system which [id number]) generated this result transmitted ref erence range: <=17. Th e reference range was not used to interpr et this result as normal/abnormal . Recreation Director ID - BSThe BLOCK SETTER GYPSUM STAT High Sensitivity Troponin-I results should be used in conjunctionwith other diagnostic information such as ECG, clinical observations and information, and patient symptoms to aid in the diagnosis of [place].[id number] 20:31:56 Test Item Value Reference Range Interpretation Comments LIPASE (BEAKER) (test code = 749) 17 U/L 8-78 Recreation Director ID - [id number] 20:31:55 Test Item Value Reference Range Interpretation Comments MAGNESIUM (BEAKER) (test code = 2.0 mg/dL 1.6-2.6 627) Recreation Director ID - [id number] 20:31:55 Test Item Value Reference Range Interpretation Comments PHOSPHORUS (BEAKER) (test code = 3.2 mg/dL 2.3-4.7 604) Recreation Director ID - BSCOMPREHENSIVE METABOLIC [id number] 20:31:54 Test Item Value Reference Range Interpretation [...] S NOT APPLICABLE FOR DIALYSIS PATIEN TS. Recreation Director ID - BSLACTIC ACID, [id number] 20:28:31 Test Item Value Reference Range Interpretation Comments LACTATE BLOOD VENOUS 0.65 mmol/L 0.50-2.20 Specime n slightly (2) (BEAKER) (test hemolyzed code = 4778) Recreation Director ID - BSURINALYSIS W/ REFLEX URINE [id number] 20:21:36 Test Item Value Reference Range Interpretation [...] 1585) Rare SOURCE(BEAKER) (test code = 2795) Recreation Director ID - [auto]Recreation Director ID - techCBC W/PLT COUNT & AUTO [...] (test code = 2801) RAD, CHEST, 2 [id number] 19:36:00Reason for exam:->SHORTNESS OF BREATHReason for exam:->ABDOMINAL PAINReason for exam:->cough [facility] 1980 Sex: FFINAL [...] Date/Time: 10/03/2021 19:36:46 MR, PELVIS, WITHOUT IV [id number] 08:44:00Evaluate for sacroiliitisUnlisted Reason for Exam - Click Yes and Enter Reason Below->YesUnlistedReason for Exam->Low back pain, unspecified back pain laterality, unspecified chronicity, unspecified whether sciatica present [facility] : 1980 Sex: FFINAL [...] spine may be of benefit. Signed: Ab oRgers Verified Date/Time: 11/01/2020 08:44:21 Reading Location: [facility] Room [address] [place] [address] SARS-COV2/RT-PCR ([facility])2020-07-23 08:04:00 Test Item Value Reference Range Interpretation Comments SARS-COV2/RT-PCR (test Negative Not Detected, Negative, code = 5270282) See external report for linked test SARS-COV-[address] [facility] FELICE (test code = 6280012) Negative result for this test determines that [...] the Sellers SARS-CoV-2 assay.Fact Sheet for Healthcare Providers:https://www.Cardiovascular [employer]ulation.sellers/louis/RT_SAR D-HeA-1_LNP_Jzzv_Yejxh_87-130533.pdfFact Sheet for Healthcare Patients:https://www.Cardiovascular [employer]ulation.sellers/s al/BU_WPGL-BkQ-4_Sgueren_Zthv_Gdllv_XN_82-767058O0.pdfPerforming Laboratory:[facility] [place] [address] TISSUE [id number] 11:46:00Surgical Pathology Report Case: [id number] Authorizing Provider: Sydney Gonzalez MD Collected: 03/03/2020 02:37 PM Ordering Location: [facility] Endoscopy Received: 03/04/2020 08:23 AM Services [...] Large Intestine, Colon - Sigmoid, biopsy M) -Rectum, biopsy A. DUODENUM, BIOPSY: - DUODENAL MUCOSA [...] - NEGATIVE FOR INTESTINAL METAPLASIA/ DYSPLASIA/ M ALIGNANCY.E. ESOPHAGUS, PROXIMAL, BIOPSY: - UNREMARKABLE SQUAMOUS EPITHELIUM. [...] OR MALIGNANCY. Signing Pathologist Direct Phone Line: [phone] signed by Anel Rincon MD on 03/07/2020 at 11:46 [id number] X 13, [phone] X 2Screening for viral disease, ulcerative proctitis with rectal bleeding.A. Duodenum B. Gastric biopsy C. Gastric polypD. Distal esophagusE. Proximal esophagusF. CecumG. Tympanic mem brane biopsy H. Right/ascending colon I. Transverse colon [...] 0.2 x 0.2 x 0.1 cm webster-pink ti ssue fragment, which is filtered and submitted in toto in C1.D. Received in formalin labeled with the patient's name, accession number and "distal esophagus" are multiple webster-pink tissue fragments measuring up to 0.2 cm in greatest dimension, which are filtered and submitted in toto in D1.E. Received i n formalin labeled with the patient's name, accession [...] colon" are three webster- pink tissue fragments measuring up to [...] to 0.3 cm in greatest dimension, which arefiltered and submitted in toto in J1.E. Received in formalin labeled with the patient's name, accession number and "descending colon" are multiple webster-pink tissue fragments measuring up to 0.3 cm in greatest dimension, which are filtered and submitted in toto in E1.K. Received in formalin labeled withthe patient's name, accession number and "left/descending colon [...] evaluated Immunohistochemistry technical testing was performed at [facility], Pathology Laboratory where it was developed and its performance characteristics were determined. It has not been clearedor approved by the U.S. Food and Drug Administration. The FDA has determined that such clearance or approval is not necessary. The test is used for clinical purposes. It should not be regarded as investigational or for research. This laboratory is certified under the Clinical Laboratory Improvement Amendments of 1988 (CLIA-88) as qualified to perform high complexity clinical laboratory testing.[facility], Department of Pathology, [address] [place] [address], [facility], [address] [place] [address], [facility]xttdtDowney [facility], Department of Pathology, [address] [place] [address], Chest 2 [id number] 05:43:51 No acute intrathoracic abnormality. Preliminary Report Dictated by Resident: Casa Navarro MD., have reviewed this study and agree with the abovereport.PROCEDURE: XR CHEST 2 VW CLINICAL INDICATION: SOB COMPARISON: None FINDINGS: The lungs are clear. No pleural effusion or pneumothorax is seen. The heartis normal in size. No acute bony abnormality. [facility], Radiant Results Inft User - 12/22/2019 12:44 AM CDTPROCEDURE: XR CHEST 2 VWCLINICAL INDICATION: SOB COMPARISON: NoneFINDINGS:The lungs are clear. No pleural effusion or pneumothorax is seen. The heartis normal in size.No acute bony abnormality.IMPRESSIONNo acute intrathoracic abnormality.Preliminary ReportDictated by Resident: Casa Roman MD., have reviewed this study and agree with the abovereport.[facility] HospitalD-[id number] 04:42:00 Test Item Value Reference Interpretation Comments Range D-DIMER (test code = See_Comment H [Autom ated [id number]) message] The system which generated this result [...] diagnosis. Lab Interpretation Abnormal (test code = 73810-3) [facility] HospitalCOVID[facility] (ID NOW RAPID TESTING)2019-12-22 04:20:00 Test Item Value Reference Range Interpretation Comments SARS-CoV-2 Rapid ID NOW Not Detected Not Detected (test code = 43846-4) PEYTON (test code = PEYTON) ID NOW COVID-19 Assay is an isothermal nucleic acid amplification test intended for the qualitative detection of nucleic acid from SARS-CoV-2 viral RNA in nasopharyngeal ([employer] [place]) specimens. It is used under Emergency Use [...] indicated. Lab Interpretation Normal (test code = 13441-8) [facility] (NA, K, CL, CO2, GLUCOSE, BUN, CREATININE, CA)2019-12-22 04:17:00 Test Item Value Reference Range Interpretation Comments NA (test code = 138 mmol/L 135-145 7114821189) K (test code = 5.3 mmol/L 3.5-5 H Slight 8855170757) hemolysis CL (test code = 106 mmol/L 98-108 0627306579) CO2 TOTAL (test code 23 mmol/L 23-31 = 1766518822) AGAP (test code = 2-16 4266001801) BUN (test code = 23 mg/dL 7-23 Slight 2291098129) hemolysis GLUCOSE (test code = 100 mg/dL 70-110 3937313798) CREATININE (test code 0.95 mg/dL 0.5-1.04 = 1079768563) CALCIUM (test code = 9.2 mg/dL 8.6-10.6 8884311576) eGFR Calculation mL/min/1.73m2 (Non-) (test code = 3477514004) eGFR Calculation mL/min/1.73m2 () (test code = 5551647727) PEYTON (test code = PEYTON) Association of [...] tests). Lab Interpretation Abnormal (test code = 49655-6) [facility] HospitalHepatic Function Panel (ALB, T.PRO, BILI T, BU/BC, ALT, AST, ALK PHOS)2019-12-22 04:17:00 Test Item Value Reference Range Interpretation Comments TOTAL BILI (test code = 0.6 mg/dL 0.1-1.9 8782527885) BILI UNCON (test code = 0.5 mg/dL 0.1-1.0 1687183574) BILI CONJ (test code = 0.0 mg/dL 0-0.3 8042602211) T PROTEIN (test code = 8.1 g/dL 6.3-8.2 4196574126) ALBUMIN (test code = 4.4 g/dL 3.5-5 0741581327) ALK PHOS (test code = 80 U/L 34-122 Slight hemolysis 6929767122) ALTv (test code = 1742-6) 25 U/L 5-35 AST(SGOT) (test code = 38 U/L 13-40 Sligh t hemolysis 1248153697) Lab Interpretation (test Normal code = 41989-6) [facility] HospitalTroponin [id number] 04:17:00 Test Item Value Reference Range Interpretation Comments TROPONIN I (test <0.012 See_Comment [Automated code = 7169047251) message] The system which generated this result [...] ? Lab Interpretation Normal (test code = 11757-5) [facility] HospitalN-TERMINAL [id number] 04:17:00 Test Item Value Reference Range Interpretation Comments NT-proBNP (test code 201 pg/mL See_Comment H [Autom ated = 2614045611) message] The system which generated this result transmitted reference range : <=125. The reference range was not used to interpret this result as normal/abnormal . PEYTON (test code = PEYTON) Biotin has been reported to cause a negative bias, interpret results relative to patient's use of biotin. Lab Interpretation Abnormal (test code = 84804-7) [facility] HospitalUrinalysis2020-06-30 04:01:00 Test Item Value Reference Range Interpretation Comments APPEARANCE (test code = Hazy Clear A 8992403768) COLOR (test code = Yellow Yellow 9011978420) PH (test code = 4.8-8.0 3848136202) SP GRAVITY (test code = 1.003-1.030 4854194459) GLU U QUAL (test code = Normal Normal 1445100689) BLOOD (test code = 2+ Negative A 7001557780) KETONES (test code = Negative Negative 6213120451) PROTEIN (test code = Negative Negative 2887-8) UROBILIN (test code = Normal Normal 1704231222) BILIRUBIN (test code = Negative Negative 9644907156) NITRITE (test code = Negative Negative 3543946558) LEUK SOLOMON (test code = Negative Negative 2957279310) RBC/HPF (test code = See_Comment H [Autom ated message] 3734336024) The system [employer] generated this result transmitted ref erence range: 0 - 3 HP F. The reference range was not used to int erpret this result as normal/abnormal . WBC/HPF (test code = See_Comment [Autom ated message] 2920228930) The system [employer] generated this result transmitted ref erence range: 0 - 5 HP F. The reference range was not used to int erpret this result as normal/abnormal . BACTERIA (test code = Few Negative A 9627243234) MUCOUS (test code = Slight Negative LPF A 4121700286) SQ EPITH (test code = HPF 7575152162) Lab Interpretation (test Abnormal code = 67387-9) [facility] WITH [id number] 03:54:00 Test Item Value Reference Range Interpretation Comments WBC (test code = See_Comment [Automated 6490-2) message] The sy stem which generated this [...] RDW-SD (test code = 42.8 fL 39-49.9 37713-4) RDW-CV (test code = 13.1 % 12-15.5 788-0) PLT (test code = See_Comment [Automated 777-3) message] The sy stem which generated this result transmitted reference range : 166 - 358 10*3/ ?L. The reference r skye was not used to interpret this result as normal/abnormal . MPV (test code = 9.4 fL 9.5-12.9 L 86331-5) NRBC/100 WBC (test See_Comment [Automat ed code = 6912321946) message] The system which generated this result transmitted reference range : 0.0 - 10.0 /100 WBCs. The refer ence range was not u sed to interpret th is result as normal/abnormal . NRBC x10^3 (test code <0.01 See_Comment [Auto mated = 3834176238) message] The s ystem which generated this result transmitted reference range : 10*3/?L. The reference range was not used to interpret this result as normal/abnormal . GRAN MAT (NEUT) % 59.8 % (test code = 770-8) IMM GRAN % (test code 0.50 % = 7594126788) LYMPH % (test code = 30.8 % 736-9) MONO % (test code = 7.9 % 5905-5) EOS % (test code = 0.4 % 713-8) BASO % (test code = 0.6 % 706-2) GRAN MAT x10^3(ANC) 6.50 10*3/uL 1.88-7.09 (test code = 1176237548) IMM GRAN x10^3 (test 0.05 10*3/uL 0-0.06 code = 1283741931) LYMPH x10^3 (test code 3.34 10*3/uL 1.32-3.29 H = 731-0) MONO x10^3 (test code 0.86 10*3/uL 0.33-0.92 = 742-7) EOS x10^3 (test code = 0.04 10*3/uL 0.03-0.39 711-2) BASO x10^3 (test code 0.06 10*3/uL 0.01-0.07 = 704-7) Lab Interpretation Abnormal (test code = 08459-6) [facility] HospitalPOCT [id number] 03:21:00 Test Item Value Reference Range Interpretation Comments POCT PREG (test code = 1605) negative On board controls acceptable with yes C Line (test code = 3574) POCT PREG LOT # (test code = 3575) [id number] POCT PREG TEST DATE (test 01/21/2021 code = 3576) Lab Interpretation (test code = Normal 87235-9) [facility] HospitalXR HIPS 2 VW [id number] 18:46:31 Mild hip osteoarthrosis No acute osseous abnormality. EXAM: XR HIPS 2 VW RIGHT HISTORY: 39 years-old Female pain with movement COMPARISON: None. FINDINGS: No acute fracture or dislocation. mild hip joint space narrowing andsuperior acetabular sclerosis with marginal osteophytes are noted. No softtissue abnormality is seen. [facility], Radiant Results Inft User - 08/20/2019 12:47 PM CSTEXAM: XR HIPS 2 VW RIGHTHISTORY: 39 years-old Female pain with movement COMPARISON: None.FINDINGS:No acute fracture or dislocation. mild hip joint space narrowing andsuperior acetabular sclerosis with marginal osteophytes are noted. No softtissue abnormality is seen.IMPRESSIONMild hip osteoarthrosisNo acute osseous abnormality.[facility] HospitalPost Op Promis 29 [id number] 13:33:12 Test Item Value Reference Range Interpretation Comments Pain Interference: (test code = Pain 73.7 1 N Interference:) Pain Intensity: (test code = Pain 53.7 1 N Intensity:) Physical Function: (test code = 21.3 1 N Physical Function:) Satisfaction Role: (test code = 35.6 1 N Satisfaction Role:) [facility] Shoulder wo contrast [id number] 11:13:00PROCEDURE INFORMATION:Exam: MR Right Upper Extremity Joint [...] the proximalhumerus.Meliton Rush MD On 04/24/2019 13:45:44; [id number]--Hxrm by: Meliton Rush MDDictated Date/time: 04/24/19 13:45Electronically Signed by: Meliton Rush MD 04/24/1913:45FINAL REPORT[facility]] CULTURE, URINE, [id number] 12:00:00 Test Item Value Reference Range Interpretation Comments CULTURE (test code = See Comment CULTURE , URINE, CULTURE) ROUTINE MICRO N UMBER: [id number] TEST S TATUS: FINAL SPECIMEN SOURCE: URINE, CLEAN [facility] SPECIMEN QUALIT Y: ADEQUATE RESULT : Multiple organi sms present, each l ess than 10,000 CF U/mL. These organisms , commonly found on external and in ternal genitalia, are considered to b e colonizers. No further testing perform ed. [facility][] DRUG SCREEN,COMPREHENSIVE (URINE)2019-02-11 14:49:00 Test Item [...] FOR SPECIFICS ONWHICH DRUGS A RE TESTED. [facility] Abdomen Doppler [id number] 11:02:00Patient Name: TODD CULVERODOB: 1980; Age: 38 years y/o FemaleMR: [id number] ULTRASOUND with Doppler studiesHistory: splenomegaly Technique: The [...] nephrectomy.3. Normal Doppler studies as described above.SL: [id number] by: Kwaku Hedrick MDDictated Date/time: 02/10/19 15:13Ele ctronically Signed by: Kwaku Hedrick MD 02/10/1915:20FINAL REPORT[facility]] CALPROTECTIN, [id number] 14:43:01 Test Item Value Reference Range Interpretation Comments Calprotectin (test 30 ug/g 0-120 Concentra tion code = Calprotectin) Interpr etation Follow-Up<16 - 50 ug/g Normal None>50 -120 ug/g Borderline Re-e valuate in 4-6 weeks >120 ug/g Abnormal Repeat as clinically indicatedPerfor med At: [facility] [address] [place], [place] [id number] ra Shanthi SANDOVAL Ph:[phone] [facility] Clavicle Bilateral [id number] 14:03:00Clinical Indication: - M89.8X1 Other specified disorders of bone, shoulder,M79.18 Myalgia, other site, M25.50 Pain in unspecified joint, M94.0 Chondrocostal junction syndrome [Tietze]; clavicle pain for 5 daysComparison: NoneTECHNIQUE: AP and axial views of the bilateral claviclesFINDINGS: No acute fracture or malalignment is identified. Thesternoclavicular joints are within normal limits as are the acromioclavicularjoints.No soft tissue abnormality is identified.IMPRESSION: No acute abnormality.SL:[id number] by: Oj Boswell MDDictated Date/time: 01/30/19 14:33Electronically Signedby: Oj Boswell MD 01/30/1914:34FINAL REPORT[facility]] HEPATIC FUNCTION [id number] 14:45:01 Test Item Value Reference Range Interpretation [...] of pediatric refer ence intervals to e[employer] [place] analyzer (Clinical Biochemistry 46 (2013): 4807-2524). [facility] has not internally validated these reference ranges and therefore they should be used only in e context of a thoroughcl inical assessment. AST (test code = 11 u/l 0-37 26501-9) ALT (test code = 20 u/l 0-65 1743-4) Globulin (test code 3.6 g/dl 2.7-4.2 = 03632-7) A/G Ratio (test 1.1 0.7-1.6 code = 1759-0) [facility][H] Celiac Pnl w/Rflx Endomy Ab [id number] 14:45:01 Test Item Value Reference Range Interpretation Comments IgA Lvl (test code = 2458-8) 234.0 mg/dl 68.0-378.0 Gliadin (Deamidated Peptide)IgA <0.2 <=14.9 Ab (test code = 23017-0) Gliadin (Deamidated Peptide)IgG 0.6 U/ml <=14.9 Ab (test code = 49276-5) Tissue Transglutaminase (tTG) IgA <0.5 <=14.9 (test code = 01433-2) Tissue Transglutaminase (tTg) IgG <0.8 <=14.9 (test code = 54935-7) [facility][H] LUNDBERG [id number] 14:45:01 Test Item Value Reference Range Interpretation Comments Bili Total (test code 0.5 mg/dl 0-1 = 1974-) ALT (test code = 20 u/l 0-65 1743-4) AST (test code = 11 u/l 0-37 59661-8) Fibrosis Score (test 0.04 0.00-0.21 code = [...] Macroglob (test 224 mg/dl 110-276 code = 30519-3) Haptoglobin; Above 208 mg/dl 34-200 High Threshold (test code = 89334-2) Apolipoprotein A-1 170 mg/dl 116-209 (test code = Apolipoprotein A-1) GGT (test code = 18 {iu/l} 0-60 2324-2) Chol (test code = 137 mg/dl 118-927 4149-3) Glucose Lvl (test 96 mg/dl 65-99 Adult refe rence range code = 2345-7) values reflec t the clinical guidel inesof the [employer]. Trig; Above High 182 [...] q uestions regarding this report please contact Penumbratomywaves service at . Referenc es:1. Latanya Noe. [...] 6:34 doi:10.1186/147 1-230X-6 -34.Performed A t: [facility] [place], [place] [address]Czx susana Maki MD Ph:[phone] [facility][H] CK [id number] 10:21:01 Test Item Value Reference Range Interpretation [...] [facility] (test code = Creatine Aaron [address] Kinase BB) Bld[address] [place] [id number] h CN MD Ph:[phone] rformed At: [facility] [address] [place], [place] [address]Lokyn Kyle L MD Ph:[phone] [facility][H] Quantiferon Incubationa w/ Reflex to TB Gold [id number] 10:21:01 Test Item Value Reference Range Interpretation Comments Quantiferon Incubation Performed At: H D Incubation (test performed. [facility] code = Quantiferon [address] Incubation) [place], [place] [address]Xzi judith Domínguez MD Ph:[phone] Quantiferon - TB Negative Negative Performed A t: BN Gold Plus (test [facility] code = Quantiferon [facility] n1447 - TB Gold Plus) [place], [place] [address]Umbpbw ra Shanthi SANDOVAL Ph:[phone] [facility][H] Quantiferon Incubationa w/ Reflex to TB Gold [id number] 10:21:01 Test Item Value Reference Range Interpretation Comments Quantiferon Criteria Comment The Vasquez ntiFERON-TB (test code = Gold Plus resul t is Quantiferon determined Criteria) bysubtracting t he Nil value from [facility] TB antigen (Ag) be.The mitogen tube se [...] BN code = Mitogen - [facility] NIL) [address] [id number] ra Shanthi SANDOVAL Ph:[phone] [facility] Shoulder series [id number] 10:49:00EXAM: XR SHOULDER 3 VIEWSDATE: 01/13/2019 10:49 [...] 01/13/1913:49FINAL REPORTUT PhysiciansXRAY Spine lumbar AP lateral [id number] 10:49:00EXAM: XR LUMBAR SPINE 2 VIEWSDATE: 01/13/2019 [...] PhysiciansXRAY Spine cervical 2 or 3 view [id number] 10:49:00EXAM: XR CERVICAL SPINE 3 VIEWSDATE: 01/13/2019 [...] REPORT [facility] Knee 1-2 Views Bilateral [id number] 10:48:00EXAM: XR BILATERAL KNEE 2 VIEWSDATE: 01/13/2019 [...] bilateral w pelvis and both lat hips [id number] 10:48:00EXAM: XR BILATERAL HIP 2 VIEWS AND [...] MD 01/13/1913:37FINAL REPORTUT PhysiciansXRAY Chest 2 views [id number] 10:47:00EXAM: XR CHEST 2 VIEWSDATE: 01/13/2019 10:47 [...] by: Luis A Schumacher MD 01/14/1912:50FINAL REPORTUT [facility]icians[QLH] URINALYSIS, COMPLETE W/REFLEX TO [id number] 10:10:01 Test Item Value Reference Range Interpretation Comments UA Color (test code = 5778-6) Jhoan UA Turbidity; Abnormal (test code Marked Clear A = 56658-0) UA Spec Grav; Above High Threshold 1.032 <=1.030 (test code = 5810-7) UA pH (test code = 5803-2) 5.0 5.0-8.0 UA Protein; Abnormal (test code = 30 mg/dl Negative A 86906-3) UA Glucose (test code = 17951-5) Negative Negative UA Ketones; Abnormal (test code = Trace Negative A 60434-4) UA Bili (test code = 5770-3) Negative Negative UA Blood; Abnormal (test code = Large Negative A 5794-3) UROBILINOGEN (test code = 92332-9) <=1.0 0.1-1.0 UA Nitrite (test code = 5802-4) Negative Negative UA Leuk Est (test code = 5799-2) Negative Negative UA RBC; Above High Threshold (test 10 {/HPF} 0-2 code = 21158-5) UA WBC; Above High Threshold (test 8 {/HPF} 0-5 code = 17706-8) UA Bacteria (test code = 54321-1) Few None Seen UA Mucus; Abnormal (test code = Many None Seen A 8247-9) UA Sq Epi (test code = 70569-5) Occasional Few [facility][QH] PROTEIN, TOTAL W/CREAT, RANDOM [id number] 10:10:01 Test Item Value Reference Range Interpretation Comments U Creatinine (test 303.00 mg/dl No establ ished code = 2161-8) reference ran ge. Urine Protein Level 51.5 mg/dl No estab lished (test code = 2888-6) referen ce ranges. U Prot/Creat (test 0.17 code = 2890-2) [facility][QH] HEPATITIS B SURFACE ANTIGEN W/REFL [id number] 10:10:01 Test Item Value Reference Range Interpretation Comments Hepatitis B Surface Antigen (test Negative Negative code = 5195-3) [facility][QL] HEPATITIS C [id number] 10:10:01 Test Item Value Reference Range Interpretation Comments Hepatitis C Antibody (test code = Negative 46752-3) [facility][Q] CYCLIC CITRULLINATED PEPTIDE (CCP) AB (IGG)2019-01-13 10:10:01 Test Item Value Reference Range Interpretation Comments Cyclic Citrulline Peptide Antibody <0.5 <=2.9 (test code = 43698-9) [facility][O] Urine Dipstick (In Office)2018-12-29 16:04:00 Test Item Value Reference Range Interpretation Comments Glucose (test code = Glucose) 100 MG/dL LEUKOCYTES (test code = LARGE LEUKOCYTES) NITRITE (test code = 65460-1) POSITIVE UROBILINOGEN (test code = 4.0 E.U./dL 03696-5) PROTEIN (test code = 87141-2) >=300 MG/dL pH (test code = pH) 5.5 URINE BLOOD (test code = 25072-6) SMALL SPECIFIC GRAVITY (test code = >=1.030 2965-2) KETONES (test code = 52783-5) 15 MG/dL BILIRUBIN (test code = 46179-4) MODERATE COLOR URINE (test code = 5778-6) JHOAN APPEARANCE (test code = 5767-9) CLEAR [facility]] URINALYSIS, [id number] 15:10:01 Test Item Value Reference Range Interpretation Comments UA Turbidity; Abnormal (test code Slight Clear A = 48904-7) UA Spec Grav; Above High Threshold 1.040 <=1.030 (test code = 5810-7) UA pH (test code = 5803-2) 5.0 5.0-8.0 UA Protein; Abnormal (test code = 100 mg/dl Negative A 69522-0) UA Glucose (test code = 31793-3) Negative Negative UA Ketones (test code = 40075-3) Negative Negative UA Bili (test code = 5770-3) Negative Negative UA Blood; Abnormal (test code = Small Negative A 5794-3) UROBILINOGEN; Above High Threshold 4.0 mg/dl 0.1-1.0 (test code = 86655-4) UA Nitrite; Abnormal (test code = Positive Negative A 5802-4) UA Leuk Est (test code = 5799-2) Negative Negative UA RBC; Above High Threshold (test 27 {/HPF} 0-2 code = 57021-6) UA WBC; Above High Threshold (test 14 {/HPF} 0-5 code = 14529-6) UA Bacteria (test code = 02222-1) Occasional None Seen UA Mucus; Abnormal (test code = Moderate None Seen A 8247-9) UA Sq Epi; Abnormal (test code = Moderate Few A 47683-1) UA Color (test code = 5778-6) [facility] CBC (INCLUDES DIFF/PLT)2018-12-29 15:10:01 Test Item Value Reference Range Interpretation Comments WBC; Above High Threshold (test 10.8 {K/CMM} 3.7-10.4 code = 6690-2) RBC (test code = 789-8) 4.47 {M/CMM} 4.20-5.40 Hgb (test code = 718-7) 14.4 g/dl 12.0-16.0 Hct (test code = 69409-0) 42.7 % 36.0-48.0 MCV (test code = 787-2) 95.6 fL 80.0-98.0 MCH; Above High Threshold (test 32.1 pg 27.0-31.0 code = 785-6) MCHC (test code = 786-4) 33.6 g/dl 32.0-36.0 RDW (test code = 788-0) 13.7 % 11.5-14.5 Platelet (test code = 79245-0) 335 {K/CMM} 133-450 Mean Platelet Volume (test code 8.3 fL 7.4-10.4 = 98427-2) [facility]] [id number] 15:10:01 Test Item Value Reference Range Interpretation Comments Segmented Neutrophils (test code 64.3 % 45.0-75.0 = 94238-7) Monocytes (test code = 11904-7) 7.6 % 2.0-12.0 Lymphocytes (test code = 23887-1) 26.8 % 20.0-40.0 Eosinophils (test code = 80911-9) 0.7 % 0.0-4.0 Basophils (test code = 706-2) 0.6 % 0.0-1.0 Segs-Bands # (test code = 6.9 {K/CMM} 1.5-8.1 22938-0) Lymphocytes # (test code = 2.9 {K/CMM} 1.0-5.5 49528-2) Monocytes # (test code = 01829-6) 0.8 {K/CMM} 0.0-0.8 Eosinophils # (test code = 0.1 {K/CMM} 0.0-0.5 14951-3) Basophils # (test code = 77283-1) 0.1 {K/CMM} 0.0-0.2 [facility][] HIV AB, HIV 1/2, EIA, WITH [id number] 15:10:01 Test Item Value Reference Range Interpretation Comments HIV Ag/Ab 4th Gen Negative Negative HIV test r esults should be (test code = considered posi tive only 92203-0) when both the s creening andthe confirma tory tests are positive. A negative confirmatory te st in patientswith a positive screening test does not exclude HIV inf ection. If clincallywarran svetlana, an HIV RNA quantitativ e test should be order ed. [facility]] CMP [id number] 15:10:01 Test Item Value Reference Range Interpretation Comments Sodium Level 143 {mEq/l} 135-145 (test code = 2951-2) Potassium Level 4.2 {mEq/l} 3.5-5.1 (test code = 2823-3) Chloride Level 107 {mEq/l} 95-109 (test code = 5-0) Carbon Dioxide 25 {mEq/l} 24-32 (test code = 2027-9) AGAP (test code = 15.2 {mEq/l} 10.0-20.0 55276-7) Glucose Lvl; 106 mg/dl 70-99 Adult reference range Above High values reflect the Threshold (test clinical magali delinesof the code = 2345-7) [employer]. Creatinine Lvl 1.10 mg/dl 0.50-1.40 (test code = 2160-0) Blood Urea 21 mg/dl 7-22 Nitrogen (test code = 3094-0) BUN/Creatinine 19 6-25 Ratio (test code = 3097-3) Total Protein 7.1 g/dl 6.4-8.4 (test code = 2885-2) Albumin Lvl (test 3.7 g/dl 3.5-5.0 code = 1751-7) Globulin (test 3.4 g/dl 2.7-4.2 code = 30349-1) A/G Ratio (test 1.1 0.7-1.6 code = 1759-0) Calcium Level 9.3 mg/dl 8.5-10.5 Total (test code = 48906-2) ALT (test code = 47 u/l 0-65 1743-4) AST (test code = 18 u/l 0-37 72607-0) Alk Phos (test 56 u/l 39-136 code = 1783-0) Bili Total (test 0.3 mg/dl 0.2-1.3 code = 1975-2) eGFR (test code = 64 The eGFR i s calculated 34440-8) {ML/MIN/1.7} using the CKD-E PI formula. In [...] be multiplied by t he estimated BMI. [facility][QH] LIPID PANEL WITH REFLEX TO DIRECT [id number] 15:10:01 Test Item Value Reference Range Interpretation Comments LDL (test code = 66219-0) 36 mg/dl <=99 Chol (test code = 2093-3) 124 mg/dl <=199 Trig; Above High Threshold (test 223 mg/dl <=149 code = 2571-8) HDL Cholesterol; Below Low 43 mg/dl >=61 Threshold (test code = 2085-9) CHD Risk; Below Low Threshold (test 2.88 3.90-5.80 code = 59415-0) VLDL (test code = VLDL) 45 [facility][QL] TSH, 3RD GENERATION W/REFLEX TO [id number] 15:10:01 Test Item Value Reference Range Interpretation Comments TSH (test code = 58041-1) 2.550 {uIU/ml} 0.360-3.740 [facility][H] CRP, hs, Cardiac [id number] 15:10:01 Test Item Value Reference Range Interpretation Comments C-Reactive Protein High 25.9 mg/L Low Risk: <1.0 Sensitivity (test code = mg/ LAverage Risk: 95703-2) 1.0 - 3.0 mg/LH igh Risk: >3.0 mg/LInflammatio n: >10.0 mg/L [facility][QL] SED RATE BY MODIFIED [id number] 15:10:01 Test Item Value Reference Range Interpretation Comments Sedimentation Rate (test code = 17 {mm/hr} 0-20 14614-4) [facility][QL] HEMOGLOBIN [id number] 15:10:01 Test Item Value Reference Range Interpretation Comments Hemoglobin A1c; Above High Threshold 5.7 % <=5.6 (test code = 4548-4) [facility][QL] WARREN PANEL, [id number] 15:10:01 Test Item Value Reference Range Interpretation Comments Antinuclear Antibody Negative Negative Because the WARREN was Screen (test code = Negative , the Reflex 19165-6) assays for Anti-dsDNA, SM/ DRUG SAFETY ASSISTANT, Deb/La (SSA/S SB) were not perfor med. [facility]
[2022-07-26] MEDS ORDERED: Ringers Lactate 1,000 ML IV ONE (20:03)
[2022-07-26 20:26] LABS: Hematocrit 40.6 % (36.0-45.0); Lymphocytes % 14.5 % (15.3-44.8); MCV 96.7 fL (80-100); MPV 8.4 fL (7.6-11.3)
[2022-07-26 20:53] LABS: Albumin 4.2 g/dL (3.4-5.0); Bilirubin Total 0.6 mg/dL (0.2-1.0); Magnesium 1.9 mg/dL (1.6-2.4); Potassium 3.3 mmol/L (3.5-5.1); Protein, Total 7.7 g/dL (6.4-8.2); Thyroid Stimulating Hormone 3.39 uIU/mL (0.358-3.740)
[2022-07-26] MEDS ORDERED: lamoTRIgine 100 MG TAB ONE (21:25)
[2022-07-26] MEDS ORDERED: HALOPERIDOL LACT 5 MG/ML INJ ONE (23:13)
--- NOTE | 2022-07-27 01:33 | ER ---
Nurse's Notes [facility] Name: Emilia Lora Age: 42 yrs Sex: Female : 1980 Arrival Date: 07/26/2022 Time: 19:22 Bed 3 Private MD: Diagnosis: Syncope Near Presentation: 07/26 19:25 Chief complaint: EMS states: Toned out by PD, EMS states pt had a flat tire and when ll3 they got on scene pt c/o high BP, dehydration, and pain to left shoulder and LUQ, states "I think I have a blood clot", reports gastric sleeve procedure 6 weeks ago. Coronavirus screen: Vaccine status: Patient reports being unvaccinated. At this time, the client does not indicate any symptoms associated with coronavirus-19. Ebola Screen: No symptoms or risks identified at this time. Initial Sepsis Screen: Does the patient meet any 2 criteria? No. Patient's initial sepsis screen is negative. Does the patient have a suspected source of infection? No. Patient's initial sepsis screen is negative. Risk Assessment: Do you want to hurt yourself or someone else? Patient reports no desire to harm self or others. Onset of symptoms was July 26, 2022. Care prior to arrival: Medication(s) given: Normal saline infusion, 200 ml IV initiated. 20 GA, in the right antecubital area, Glucose check: 110. 19:25 Method Of Arrival: EMS: [facility] 19:25 Acuity: VINITA 3 ll3 Triage Assessment: 19:31 General: Appears comfortable, Behavior is agitated, anxious. Pain: Complains of pain in ll3 anterior aspect of left shoulder Pain radiates to left upper quadrant. Neuro: Level of Consciousness is awake, alert, obeys commands, Oriented to person, place, time, situation. Cardiovascular: Patient's skin is warm and dry. Respiratory: Respiratory effort is even, unlabored, Respiratory pattern is regular, symmetrical. Derm: Skin is pink, warm \\T\\ dry. LUMBER PLANER: 07/27 01:00 LMP N/A - Irregular menses pf1 Historical: - Allergies: 07/26 19:31 Celebrex; ll3 19:31 CEPHALOSPORINS; ll3 19:31 Cipro; ll3 19:31 Keflex; ll3 19:31 Levofloxacin; ll3 19:31 Sulfa (Sulfonamide Antibiotics); ll3 19:31 Sulfasalazine; ll3 - Home Meds: 19:36 midodrine 2.5 mg oral tab 2 tabs twice a day [Active]; ll3 - PMHx: 19:31 DVT; hypermobility sydrome; PE; Rheumatoid Arthritis; rib cage cartlige swelling; Sleep ll3 Apnea; ulcerative colitis; - PSHx: 19:31 2 ankle SX; Adenoid excision; Cholecystectomy; D\\T\\C; Endometrial ablasion; gastric ll3 sleeve; R nephrectomy; septoplasty; - Immunization history:: Client reports receiving the 2nd dose of the Covid vaccine. - Social history:: Smoking status: Patient denies any tobacco usage or history of. - Family history:: not pertinent. Screenin:33 Abuse screen: Denies threats or abuse. Denies injuries from another. Nutritional ll3 screening: No deficits noted. Tuberculosis screening: No symptoms or risk factors identified. 20:00 [facility] ED Fall Risk Assessment (Adult) History of falling in the last 3 months, pf1 including since admission No falls in past 3 months (0 pts) Confusion or Disorientation Yes (5 pts) Intoxicated or Sedated No (0 pts) Impaired Gait No (0 pts) Mobility Assist Device Used No (0 pt) Altered Elimination No (0 pt) Score/Fall Risk Level 0 - 2 = Low Risk Oriented to surroundings, Maintained a safe environment, Educated pt \\T\\ family on fall prevention, incl call for assistance when getting out of bed, Assessed \\T\\ reinforced patient's understanding of fall precautions, Provided non-skid footwear, Hourly rounding (assess needs \\T\\ fall precautionary measures) done, Used ambulatory aids as needed (educated on \\T\\ assisted with), Used gait belt as appropriate. Assessment: 19:31 General: See triage assessment. ll3 20:20 General: Patient is telling nursing staff " You are expendable as a nurse, I demand to tw5 talk to the doctor again. Everything you are doing is wrong. I need a patient advocate!" Provider and Steel Crane Operator notifed. 20:42 Reassessment: Pt requests to speak with Dr. Stewart, states "I think I'm having a ll3 seizure", c/o left sided pain, states "I don't want pain medication, I just want to speak to the doctor", ERP notified. 22:20 Reassessment: Patient appears in no apparent distress at this time. No changes from pf1 previously documented assessment. Patient taken to catscan via stretcher. 22:50 General: Patient returned from catscan via stretcher. Patient did not complete catscan pf1 exam. Patient stated "it is the Lamictal that makes me mess on myself." Parents at . 23:05 General: RN called down to CT as the patient was refusing to get the CT done. Patient tw5 was found sitting on the CT bed arguing with Mother and CT techs. With the help of security, PT mothers, and CT staff patient was placed in stretcher. Patient jumped out of stretcher in hallway with no pants on and was attempting to wander. With the help of 4 people patient was safely placed back in stretcher. Provider notified of behavior.. 23:07 General: Patient stated " I don't normally act like this.". pf1 23:11 General: Spoke to mother she stated " She recently had gastric sleeve bypass and has tw5 been taking a lot of medications. I have never seen her act like this. She does have Bipolar, but she has never had an episode like this. Her daughter was with her today and told me that she was fine this morning but the behavior has gotten gradually worse as the day progressed.". 23:21 General: Patient stated "it normally happens when I stand up.". pf1 07/27 00:00 Neuro: Level of Consciousness is awake, alert, obeys commands, Oriented to person, pf1 place, time, situation. 00:00 Cardiovascular: No deficits noted. Respiratory: No deficits noted. Airway is patent pf1 Trachea midline Respiratory effort is even, unlabored, Respiratory pattern is regular, symmetrical, Breath sounds are clear bilaterally. GI: No deficits noted. Abdomen is round non-distended, Bowel sounds present X 4 quads. : No deficits noted. No signs and/or symptoms were reported regarding the genitourinary system. EENT: No deficits noted. No signs and/or symptoms were reported regarding the EENT system. Derm: No deficits noted. No signs and/or symptoms reported regarding the dermatologic system. 01:00 Reassessment: Patient appears in no apparent distress at this time. No changes from pf1 previously documented assessment. Patient states symptoms have improved. Vital Signs: 07/26 19:25 BP 143 / 62; Pulse 94; Resp 18; Temp 98.4(TE); Pulse Ox 100% on R/A; Weight 95.25 kg ll3 (R); Height 5 ft. 9 in. (175.26 cm) (R); 20:30 BP 123 / 90; Pulse 114; Resp 18; Pulse Ox 97% on R/A; pf1 21:30 BP 140 / 80; Pulse 110; Resp 20; Pulse Ox 100% on R/A; pf1 22:30 BP 137 / 89; Pulse 115; Resp 18; Pulse Ox 100% on R/A; pf1 23:30 BP 106 / 87; Pulse 100; Resp 16; Pulse Ox 99% ; pf1 07/27 01:00 BP 110 / 79; Pulse 102; Resp 18; Pulse Ox 99% ; Pain 0/10; pf1 07/26 19:25 Body Mass Index 31.01 (95.25 kg, 175.26 cm) ll3 ED Course: 07/26 19:22 Patient arrived in ED. ll3 19:27 Jt Stewart MD is Attending Physician. rt 19:31 Triage completed. ll3 19:31 Arm band placed on Patient placed in an exam room, on a stretcher, on classroom assistant, ll3 on pulse oximetry. EKG completed in triage. Results shown to MD. 19:33 Patient has correct armband on for positive identification. Bed in low position. Call ll3 light in reach. Side rails up X 1. Client placed on continuous cardiac and pulse oximetry monitoring. NIBP monitoring applied. 19:33 Maintain EMS IV. Dressing intact. Good blood return noted. Site clean \\T\\ dry. Gauge \\T\\ ll 3 site: 20 G RAC. 19:39 EKG done, by information technology director. reviewed by Jt Stewart MD. oe 23:07 Mehreen hernandez, MITALI is Primary Nurse. pf1 07/27 00:40 IV discontinued, intact, bleeding controlled, No redness/swelling at site. Pressure pf1 dressing applied, IV would not flush in catscan. 00:45 Missed attempt(s): 22 gauge in left forearm. pf1 00:50 Missed attempt(s): 22 gauge in left antecubital area. pf1 00:51 Head Brain Wo Cont In Process Unspecified. EDMS 01:45 No provider procedures requiring assistance completed. pf1 Administered Medications: 07/26 20:18 Not Given (Patient Refused): Lactated Ringers Solution 1000 ml IV at bolus bolus ll3 21:30 Drug: LaMICtal (lamoTRIgine) 300 mg Route: PO; pf1 22:30 Follow up: Response: No adverse reaction pf1 23:15 Drug: HALdol (haloperidol) 5 mg Route: IVP; Site: right antecubital; pf1 23:55 Follow up: Response: No adverse reaction; Marked relief of symptoms; RASS: Alert and pf1 Calm (0) Medication: 07/27 01:00 VIS not applicable for this client. pf1 Outcome: 01:32 Discharge ordered by . rt 01:47 Discharged to home ambulatory, with family. pf1 01:47 Condition: improved 01:47 Discharge instructions given to patient, family, Instructed on discharge instructions, follow up and referral plans. 01:48 Patient left the ED. pf1 Signatures: Dispatcher [employer] EDMS Santos Wing Tiffany tw5 Von Crawley RN RN ll3 Jt Stewart MD MD rt Mehreen hernandez RN RN pf1 Corrections: (The following items were deleted from the chart) 07/26 19:36 19:35 General: See triage assessment. ll3 ll3 07/27 04:38 01:00 Pulse 102bpm; Resp 18bpm; Pulse Ox 99%; pf1 pf1
--- NOTE | 2022-07-27 01:33 | EDPHYS ---
Physician Documentation [facility] Name: Emilia Lora Age: 42 yrs Sex: Female : 1980 Arrival Date: 07/26/2022 Time: 19:22 Bed 3 Private MD: ED Physician Jt Stewart HPI: 07/26 23:22 This 42 yrs old Female presents to ER via EMS with complaints of Near syncope. rt 23:22 Patient presents to the ED with multiple complaints. Patient states that she had a rt blowout on the road, that the police called the paramedics who brought her to the ED. She states that she felt shaky and that she was dizzy at that time. Difficult to obtain history from the patient as she seems to have flight of ideas, has tangential speech. States that she is concerned that she might have a pulmonary embolism.. C CONSULTANT: 07/27 01:00 LMP N/A - Irregular menses pf1 Historical: - Allergies: 07/26 19:31 Celebrex; ll3 19:31 CEPHALOSPORINS; ll3 19:31 Cipro; ll3 19:31 Keflex; ll3 19:31 Levofloxacin; ll3 19:31 Sulfa (Sulfonamide Antibiotics); ll3 19:31 Sulfasalazine; ll3 - Home Meds: 19:36 midodrine 2.5 mg oral tab 2 tabs twice a day [Active]; ll3 - PMHx: 19:31 DVT; hypermobility sydrome; PE; Rheumatoid Arthritis; rib cage cartlige swelling; Sleep ll3 Apnea; ulcerative colitis; - PSHx: 19:31 2 ankle SX; Adenoid excision; Cholecystectomy; D\T\C; Endometrial ablasion; gastric ll3 sleeve; R nephrectomy; septoplasty; - Immunization history:: Client reports receiving the 2nd dose of the Covid vaccine. - Social history:: Smoking status: Patient denies any tobacco usage or history of. - Family history:: not pertinent. ROS: 23:22 Unable to obtain ROS due to patient being uncooperative. rt Exam: 23:22 Constitutional: This is a well developed, well nourished patient who is awake, alert, rt and in no acute distress. Head/Face: Normocephalic, atraumatic. ENT: Nares patent. No nasal discharge, no septal abnormalities noted. Tympanic membranes are normal and external auditory canals are clear. Oropharynx with no redness, swelling, or masses, exudates, or evidence of obstruction, uvula midline. Mucous membranes moist. Chest/axilla: Normal chest wall appearance and motion. Nontender with no deformity. No lesions are appreciated. Cardiovascular: Regular rate and rhythm with a normal S1 and S2. No gallops, murmurs, or rubs. Normal PMI, no JVD. No pulse deficits. Respiratory: Lungs have equal breath sounds bilaterally, clear to auscultation and percussion. No rales, rhonchi or wheezes noted. No increased work of breathing, no retractions or nasal flaring. Abdomen/GI: Soft, non-tender, with normal bowel sounds. No distension or tympany. No guarding or rebound. No evidence of tenderness throughout. Skin: Warm, dry with normal turgor. Normal color with no rashes, no lesions, and no evidence of cellulitis. MS/ Extremity: Pulses equal, no cyanosis. Neurovascular intact. Full, normal range of motion. Neuro: Awake and alert, GCS 15, oriented to person, place, time, and situation. Cranial nerves II-XII grossly intact. Motor strength 5/5 in all extremities. Sensory grossly intact. Cerebellar exam normal. Normal gait. 23:22 ECG was reviewed by the Attending Physician. 23:22 Psych: Pressured speech, tangential. Vital Signs: 19:25 BP 143 / 62; Pulse 94; Resp 18; Temp 98.4(TE); Pulse Ox 100% on R/A; Weight 95.25 kg ll3 (R); Height 5 ft. 9 in. (175.26 cm) (R); 20:30 BP 123 / 90; Pulse 114; Resp 18; Pulse Ox 97% on R/A; pf1 21:30 BP 140 / 80; Pulse 110; Resp 20; Pulse Ox 100% on R/A; pf1 22:30 BP 137 / 89; Pulse 115; Resp 18; Pulse Ox 100% on R/A; pf1 23:30 BP 106 / 87; Pulse 100; Resp 16; Pulse Ox 99% ; pf1 07/27 01:00 BP 110 / 79; Pulse 102; Resp 18; Pulse Ox 99% ; Pain 0/10; pf1 07/26 19:25 Body Mass Index 31.01 (95.25 kg, 175.26 cm) ll3 MDM: 07/26 19:31 Patient medically screened. rt 07/27 02:26 Differential Diagnosis. Data reviewed: vital signs, nurses notes, lab test result(s), rt EKG, radiologic studies. I considered the following discharge prescriptions or medication management in the emergency department Medications were administered in the Emergency Department. See MAR. Independent interpretation of the following test(s) in the Emergency Department CT Scan: My interpretation is No head bleed. External Records Reviewed: Outpatient record: Reviewed prior ED visits. Care significantly affected by the following chronic conditions: Bipolar disorder. Counseling: I had a detailed discussion with the patient and/or guardian regarding: the need for outpatient follow up. Response to treatment: the patient's symptoms have mildly improved after treatment. ED course: Patient presents to the ED with multiple complaints. Initial complaint seem to be revolving around near syncope as well as a shaking in her arms. The patient did later state that she missed her last dose of Lamictal. Patient with some pressured speech, flight of ideas, suspected the patient might have some degree of hypomania at this time. She does not seem to be an imminent threat to herself or others. I went back into the room multiple times discussed with the patient for greater than 1 hour trying to assess her concerns, however, she was very unclear on what her concerns were. Attempted to get CTPA to rule out pulmonary embolism, however, patient would not cooperate with CT scan, kept moving. Further radiologic studies other to cause harm without diagnostic information. CT scan of the head is unremarkable. Her labs are benign. EKG is benign. At this time, there is no medical necessity keep the patient in the hospital, will discharge, patient to follow-up as an outpatient.. 07/26 19:37 Order name: Glucose, Ancillary Testing; Complete Time: 21:01 EDMS 07/26 19:57 Order name: CBC with Diff; Complete Time: 21: rt 07/26 19:57 Order name: CMP; Complete Time: 21:01 rt 07/26 19:57 Order name: Magnesium; Complete Time: 21:01 rt 07/26 19:57 Order name: Test, Serum; Complete Time: 21: rt 07/26 19:57 Order name: TSH; Complete Time: 21: rt 07/26 23:07 Order name: B12; Complete Time: 00:06 la1 07/26 23:42 Order name: Head Brain Wo Cont EDMS EC/02 23:22 Rate is 102 beats/min. Rhythm is regular, Sinus tachycardia with No ectopy. QRS [place] is rt Normal. CA interval is normal. QRS interval is normal. QT interval is normal. Interpreted by me. Administered Medications: 20:18 Not Given (Patient Refused): Lactated Ringers Solution 1000 ml IV at bolus bolus ll3 21:30 Drug: LaMICtal (lamoTRIgine) 300 mg Route: PO; pf1 22:30 Follow up: Response: No adverse reaction pf1 23:15 Drug: HALdol (haloperidol) 5 mg Route: IVP; Site: right antecubital; pf1 23:55 Follow up: Response: No adverse reaction; Marked relief of symptoms; RASS: Alert and pf1 Calm (0) Disposition Summary: 07/27/22 01:32 Discharge Ordered Location: Home rt Problem: new rt Symptoms: have improved rt Condition: Stable rt Diagnosis - Syncope Near rt Followup: rt - With: Private Physician - When: 1 - 2 days - Reason: Discharge Instructions: - Discharge Summary Sheet rt - Near-Syncope rt Forms: - Medication Reconciliation Form rt - Thank You Letter rt - Antibiotic Education rt - Prescription Opioid Use rt Signatures: Dispatcher [employer] EDVon Loo, RN RN ll3 Jt Stewart MD MD rt Mehreen hernandez RN RN pf1 Corrections: (The following items were deleted from the chart) 22:57 19:57 Chest For PE Angio+CT.RAD.BRZ ordered. EDMS EDMS 22:57 19:57 Head Brain Wo Cont+CT.RAD.BRZ ordered. EDMS EDMS 07/27 01:09 07/26 23:44 Chest For Pe Angio ordered. EDMS EDMS
[2022-07-27 01:53] VITALS: TEMP 98.4
[2022-07-27 01:57] VITALS: BP 106/87; O2SAT 99
--- NOTE | 2022-07-27 14:05 | RAD REPORT ---
EXAM DESCRIPTION: Head Brain WO Contrast CLINICAL HISTORY: MENTAL STATUS CHANGE, PERSISTENT. TECHNIQUE: Noncontrast CT through the head was performed. Axial, coronal, and sagittal reconstructio ns were created and sent to PACS. This exam was performed according to our departmental dose-optimiza tion program which includes use of Automated Exposure Control, adjustment of the mA and/or kV accordi ng to patient size and/or use of iterative reconstruction technique. COMPARISON: CT head from May 29, 2020. FINDINGS: The brain parenchyma appears unremarkable. There is no intra-axial or extra-axial bleed se en. There is no mass or mass effect. The ventricles are unremarkable. The orbital contents appear unr emarkable. The visualized paranasal sinuses and mastoid air cells are patent. No acute fracture is identified. IMPRESSION: No acute intracranial abnormality identified. Electronically signed by: Mindi Soriano MD 07/27/2022 12:57 AM HOTEL SERVER Due to temporary technical issues with the PACS/Fluency reporting system, reports are being signed by the in house radiologists without review as a courtesy to insure prompt reporting. The interpreting radiologist is fully responsible for the content of the report.
== END 2022-07-27 01:48 | disposition home or self-care (01) ==
LOC: ER 19:17
DX: R55 Syncope and collapse (principal); Z86.718 Personal history of other venous thrombosis and embolism; Z88.1 Allergy status to other antibiotic agents; Z88.2 Allergy status to sulfonamides; Z88.3 Allergy status to other anti-infective agents; Z88.6 Allergy status to analgesic agent; Z88.8 Allergy status to other drugs, medicaments and biological substances
CPT/HCPCS: 85025; 36415; 83735; 84703; 82947; 84443; 82607; 80053; 70450; 96374; 99284; J1630; J7120

== ENCOUNTER 2022-07-27 05:38 | Inpatient (IN) | payer OTHER ==
--- OUTSIDE RECORDS SUMMARY | 2022-07-27 06:06 | XMS REPORT | Continuity of Care Document ---
:1980 Author Organization [facility] t Address [address] [place] [address] Care Team Providers Name Role Phone Percy [...] Clinician Unavailable Arin West MD Attending Clinician [phone] Virtual, Surgeon Attending Clinician Unavailable ALLYSON [...] Clinician UnavailJose Antonio Correa MD Attending Clinician [phone] Benjamin Sy MD Attending Clinician Ziyad Allen NP Attending Clinician LEELA DUNN Attending Clinician Unavailable DMITRI MCKEON Attending Clinician Unavailable Dmitri Mckeon MD Attending Clinician MITA JIMENEZ Attending Clinician Unavailable Sydnie Gallegos MD Attending Clinician Caleb JASMINE, Axel Mahajan Attending Clinician Unavailable Doctor Unassigned, [place] Attending Clinician Unavailable HAYLEY VAZQUEZ Attending Clinician [...] Clinician Marichuy SANDOVAL, Ricci Vides Attending Clinician [phone] DONNY FENG Attending Clinician Unavailable Allyson Mena MD Attending Clinician Yuli Robles MD Attending Clinician Donny Feng MD Attending Clinician PILI SPRINGER Attending Clinician Unavailable Pili Springer MD Attending Clinician [phone] Brandt Alvarado MD Attending Clinician SHELLY BYRD Attending Clinician Unavailable JOE BLANCA Attending Clinician Unavailable BRANDT ALVARADO Attending Clinician Unavailable ANEL CARR Attending Clinician Unavailable BRANDT EGAN Attending Clinician Unavailable NEREIDA YOUNG Attending Clinician Unavailable Leonora Smith MD Attending Clinician [phone] ABDOULAYE PIERCE Attending Clinician Unavailable Abdoulaye Pierce MD Attending Clinician RAS KINGSTON Attending Clinician Unavailable GERALDO BEGUM Attending Clinician Unavailable PABLO FERNANDEZ Attending Clinician Unavailable Pablo Fernandez MD Attending Clinician [phone] Yann SURVEILLANCE OFFICER, CAROUSEL OPERATOR, Radha Wilson Attending Clinician Unavailable KAMERON [...] Clinician Shannan SANDOVAL, Bindu Abdi Attending Clinician [phone] Parish Fam MD Attending Clinician BRANDT SULLIVAN [...] Expiration Date S magda MEDICAID TCH STAR [id number] 2018 00:00:00 BCBS PPO POS EPO [id number] 2015 2017 CHOICE 00:00:00 00:00:00 [facility] [id number] 2018 HEALTH PLAN STAR 00:00:00 GENERIC PPO - [id number] [facility]IC [facility] [id number] 2018 [facility] 00:00:00 PLAN PPO/EPO - BCBS [id number] [facility] [id number] 2016 2016 [facility] 00:00:00 00:00:00 MEDICAID STAR - COMMUNITY [id number] [facility] [id number] 2019 CHOICE MEDICAID 00:00:00 Problems Condition Condition Condition Status Onset Resolution Last Treating Co mments Source Name Details Category Date Date Treatment Clinician Date Abdominal Abdominal Disease Active [facility]15 [facility] 00 [place] Postoperat Postoperat Disease Active [facility] luzmaria nausea luzmaria nausea 1-14 Jaskaran kes and and 00:00: Medical vomiting vomiting 00 Center Obesity Obesity Disease Active 2021-[address] [facility] 2-28 [facility] 00:[facility]: Medical 00 [place] Right arm Right arm Disease Active [facility] weakness weakness 9-24 [facility] 00:[facility] Medical 00 Center Weakness Weakness Disease Active [facility] right of right 9-21 [facility] upper upper 00:00: Medical extremity extremity 00 Cent er POTS POTS Disease Active [facility] (postural (postural 8-16 Deangelo ege orthostati orthostati 00:00: of c c 00 Medicin tachycardi tachycardi e a a syndrome) syndrome) Persistent Persistent Disease Active [facility] genital genital 7-19 College arousal arousal 00:00: of disorder disorder 00 Medici n e Essential Essential Disease Active [facility] hypertensi hypertensi 6-05 Co llege on on 00:00: of 00 Medicin e Dysautonom Dysautonom Disease Active [facility] ia ia 6-05 College 00:00: of 00 Medicin e History of History of Disease Active [facility] DVT (deep DVT (deep 05 Deangelo ege vein vein 00:00: of thrombosis thrombosis 00 Me dicin ) ) e Bipolar 2 Bipolar 2 Disease Active [facility] disorder disorder 5-18 Colleg e 00:00: of 00 Medicin e Attention Attention Disease Active [facility] deficit deficit 5-18 College hyperactiv hyperactiv 00:00: of ity ity 00 Medicin disorder disorder e (ADHD), (ADHD), predominan predominan tly tly inattentiv inattentiv e type e type RILEY RILEY Disease Active [facility] (obstructi (obstructi 516 [employer] ve [...] y.Uses [employer], sometimes notices air leaks.DME company: [employer] nts an appointme nt with Dr. Muñoz [...] for complianc e. Chronic Chronic Disease Active [facility] insomnia insomnia 5-16 [facility] Col lege 00:00: t & Plan: of 00 Formattin Medicin g of this e note might be different from the original. Pending evaluatio n by Dr. Stuart i for CBT-I Morbid Morbid Disease Active [facility] obesity obesity 5-16 Assessmen Colle ge [...] 00 Medicin e Iron Iron Disease Active [facility] deficiency deficiency 1-13 Co llege 00:00: 00 Medicin e 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 9-10 [facility] Acute Acute Disease Active [facility] pulmonary pulmonary 8-11 Deangelo ege embolism embolism 00:00: of 00 Medicin e Morbid Morbid Disease Active Univers obesity obesity 3-14 ity of 00:00: [address] Branch Rheumatoid Rheumatoid Disease Active U nadineers arthritis arthritis 3-11 ity of 00:00: [place] 00 Medical Branch Insomnia Insomnia Disease Active Unive rs 3-11 ity of 00:00: [place] [id number] Medical Branch Enteropath Enteropath Disease Active 2016-06 [...] of routine routine 00:00: g of this [place] gynecologi gynecologi 00 note Me dical tyler tyler might be Branch examinatio examinatio different n n from the original. ICD10 Diagnosis Term Practical Nurse Utility Attention Attention Disease Active Overview: Univers deficit deficit 12-15 Formattin ity o f disorder disorder 00:00: g of this Tim as 00 note Medical might be Branch different from the original. ICD10 Diagnosis Term Practical Nurse Utility Anxiety Anxiety Disease Active Univers -24 ity of 00:00: [place] 00 Medical Branch Depression Depression Disease Active U nivers 24 ity of 00:00: [place] 00 Medical Branch Asthma Asthma Disease Active Overview: Univer s 6-24 Formattin ity of 00:00: g of this note Medical might be Branch different from the original. ICD10 Diagnosis Term Practical Nurse Utility Genital Genital Disease Active Univers warts warts 6-24 ity of 00:00: [place] 00 Medical Branch Endometrio Endometrio Disease Active U nivers sis sis 6-24 ity of 00:00: Medical Branch PCOS PCOS Disease Active Univers (polycysti (polycysti 624 it y of c ovarian c ovarian 00:[place] syndrome) syndrome) 00 [facility] Branch Acne Acne Disease Active Univers 6-24 ity of 00:00: Medical Branch Obesity Obesity Disease Active Overview: Univ ers 6 Formattin ity of 00:00: g of this note Medical might be Branch different from the original. ICD10 Diagnosis Term Practical Nurse Utility Sprain of Sprain of Disease [...] Branch Routine Routine Disease Active 2010-06 Overview: [facility] medical medical 2-21 Formattin ity o [...] menstrual 07-14 ity of cycle cycle 00:00: [place] [facility] Other Other Disease Active 2010-06 [...] migraine type Depression Depression Disease Active 2009-06 [facility] B aylor 08-02 Assessmen College 00:00: t & Plan: of Formattin Medicin g of this e note might be different from the original. Stable but contribut ing to fatigue Anxiety Anxiety Disease Active 2009-06 [facility] 08-02 [place] 00:00: of 00 Medicin e History of [...] nerve pain nerve pain it y of [place] [facility] Allergies, Adverse Reactions, Alerts Allergy Allergy Status Severity Reaction(s) Onset Inactive Treating Comm ents Source Name Type Date Date Clinician CLINDAMY DRUG Active Rash 2021-06 Univers MARI INGREDI 0-11 ity of 00:00: [place] 00 Medical Branch Clindamy Propensi Active Rash 2021-06 Univer s mari ty to 0-11 ity of adverse 00:00: [place] reaction 00 Medical s Branch Morphine Drug [...] in Allergy Rash 12-13 azithromy [facility] 00:00: [facility], Medical 00 phospomyc Center in, rocephin Nitrofur Drug Active Rash [facility] antoin Allergy - [facility] Monohyd/ 00:00: Medical M-Cryst 00 Center NITROFUR DRUG Active Med Rash 2021- Univers ANTOIN INGREDI 5-16 ity of 00:00: [place] 00 Medical Branch Nitrofur Propensi Active Rash Univer s antoin ty to 11-06 ity of adverse 00:00: [place] reaction 00 Medical s Branch Nitrofur Propensi Active Rash [facility] antoin ty to 11-06 [place] Macrocry adverse 00:00: of stal reaction 00 [...] Medical s Branch Ed Propensi Active 2019-06 [facility] A-Hist ty to 08-21 [place] Pse adverse 00:00: of reaction 00 Medicin s to e drug Doxycycl Propensi Active Diarrhea 2019-06 Bayl or ine ty to 08-21 [place] adverse 00:00: of reaction 00 Medicin s to e drug DOXYCYCL Allergy Active Med Diarrhea 2019- [facility]E -28 [facility] 00:[facility]: Medical 00 Center Doxycycl Drug Active Diarrhea 2019- [facility] ine Allergy -28 [facility] 00:00: Medical 00 Center Cephalos Propensi Active 2019-06 [facility] porins ty to 07-12 [place] adverse 00:00: of reaction 00 Medicin s to e drug Ciproflo Propensi Active 2019-06 [facility] xacin ty to 07-12 [place] adverse 00:00: of reaction 00 Medicin s to e drug Sulfa Propensi Active 2019-06 [facility] Antibiot ty to 07-12 [place] ics adverse 00:00: of reaction 00 Medicin [...] or acin ty to 4-20 and rapid [place] adverse 00:00: heart of reaction 00 rateTachy Medic in s to cardiaTac e drug hycardiat achycardi a Levaquin Propensi Active Palpitations 2010-06 [facility] ty to 2-19 College adverse 00:00: [...] of tongue Duloxeti Propensi Active 2010-06 Serotonin [facility] ne Hcl ty to 07-14 syndrome [place] adverse 00:00: of reaction 00 Medicin s [...] Center NO KNOWN Allergy Active [facility] Ciproflo Allergy Active [facility] xacin to drug [...] abuse [facility] Natural brother Depression [facility] Natural brother Irritable bowel Meth odist syndrome [facility] Natural brother Learning disabilities [facility] Natural brother Mental illness [facility] Natural father Alcohol abuse [facility] Natural father Hypertension [facility] Natural father Hypertension [facility] Maternal Diabetes [facility] Maternal Heart [facility]aternal Hypertension [facility] Maternal Parks's esophagus Metho dist [facility]D [facility] Maternal Liver cancer [facility] Maternal Ulcerative colitis Method ist [facility] Natural mother Arthritis [facility] Natural mother Vision loss [facility] Natural mother Arthritis [facility] Natural mother Hypothyroidism [facility] Natural sister Alcohol abuse [facility] Natural sister Depression [facility] Natural sister Irritable bowel Metho [facility] Natural sister Learning disabilities [facility] Natural sister Mental illness [facility] Social History Social Habit Start Date Stop Date Quantity Comments Source History of Passive smoker [facility] lege of tobacco use Medicine History SDNY [facility] Alcohol Frequency Medical Center History SDOH [facility] Alcohol Std Medical Cente r Drinks History SDNY [facility] Alcohol Binge Medical Maggy ter Exposure to 2022-07-09 2022-07-19 Not sure University of SARS-CoV-2 00:00:00 10:05:00 [facility] (event) Branch Alcohol intake 2022-07-06 2022-07-06 [facility]:00 of alcohol Medical Center (finding) History [facility] 2021-11-19 2021-11-19 0 [facility] Physical Activity 00:00:00 00:00:00 Medicin e DPW History [facility] 2021-11-19 2021-11-19 0 [facility] Physical Activity 00:00:00 00:00:00 Medicin e MPS Tobacco Comment 2021-11-14 2021-11-14 None [facility] llege of 00:00:00 00:00:00 Medicine Cigarette 2021-11-14 2021-11-14 [facility] College of pack-years 00:00:00 00:00:00 Medicine Tobacco use and 2020-03-02 2020-03-[address] Jaskaran kes exposure 00:00:00 00:00:00 Medical Center History SDNY 2020-03-02 2020-03-[address] [facility] Alcohol Comment 00:00:00 00:00:00 Medical C enter Sex [birth year] [facility] 00:00:00 00:00:00 Smoking Status Start Date Stop Date Source Ex-smoker 2021-11-14 00:00:00 2021-11-14 00:00:00 [facility] ollekerrie of Medicine Never smoker [facility] Medications Ordered Filled Start Stop Current Ordering Indication Dosage Frequency Signature Comments Components Source Medication Medication Date Date Medication? Clinician (SIG) Name Name lamoTRIgine 2022- No 300mg QD Take [address] (LaMICtal 1-22 01-22 mg by [facility]ukes XR) 300 mg 21:29: 00:00 mouth Medic al TR24 21 :00 nightly . [place] lamoTRIgine 2022-0 2022- No 300mg QD Take [address] (LaMICtal 1-22 01-22 mg by [facility] XR) 300 mg 21:29: 00:00 mouth Medic al TR24 21 :00 nightly . Center lamoTRIgine 2022- No 300mg QD Take [address] (LaMICtal 1-22 01-22 mg by [facility]ukes XR) 300 mg 21:29: 00:00 mouth Medic al TR24 21 :00 nightly . [place] albuterol Yes 1{puff} Inhale [address] HFA 1-22 puff by [facility]ukes (VENTOLIN 15:03: mouth via Med ical HFA) 90 24 inhaler Center mcg/actuati every 6 on inhaler (six) hours as needed for Wheezing. traZODone Yes 100mg QD Take [address] (DESYREL) 1-22 mg by [facility] 100 MG 15:03: mouth Medical tablet 24 nightly . [place] mesalamine Yes 2400mg Q.5D Take 2,[address] (LIALDA) 1-22 mg by [facility] 1.2 gram EC 15:03: mouth 2 Med ical tablet 24 (two) Center times daily Ulcerative colitis. gabapentin 0 Yes 800mg Q.[id number] Take [address] (NEURONTIN) 1-22 [id number] mg by L ukes 800 MG 15:03: [...] Center daily as needed for Itching. cholecalcif 0 Yes 400U QD Take [address] zheng 1-22 Units by [facility] (VITAMIN 15:03: mouth Medical D3) 10 mcg 24 daily. Center (400 unit) Tab tablet fluconazole 0 Yes 150mg Take [address] (DIFLUCAN) 1-22 mg by [facility] 150 MG 15:03: mouth Medical tablet 24 once. Center dextroamphe Yes Take by [facility] tamine-amph 1-22 mouth. [facility]ukes etamine 15:03: Medical (AdderalL) 24 Center 15 mg Tab baclofen Yes 10mg Q.[id number] Take [address] (LIORESAL) 1-22 [id number] by mouth 3 [facility]ukes 10 MG 15:03: 3D (three) Medical tablet 24 times Center daily arthralgia . albuterol Yes 1{puff} Inhale 1 C HI [...] (two) Center times daily Ulcerative colitis. gabapentin 2022-0 Yes 800mg Q.[id number] Take [address] (NEURONTIN) 1-22 [id number] mg by L ukes 800 MG 15:03: 3D mouth 3 Medical tablet 24 (three) Center times daily. meclizine 2022-0 Yes 25mg Take [address] (ANTIVERT) 1-22 by mouth 3 Ady es 25 MG 15:03: (three) Medical tablet 24 times Center daily as needed. cetirizine 2022-0 Yes 10mg QD Take [address] (ZyrTEC) 10 -22 by mouth Luke s MG tablet 15:03: daily. Medica l 24 Center fluticasone 2022-0 Yes 1{puff} Q.5D Inhale [address] propion-louis -22 puff by Lukes meteroL 15:03: mouth via Medic al (ADVAIR) 24 inhaler 2 Center 500-50 (two) mcg/dose times diskus daily. inhaler hydrOXYzine 2022-0 Yes 25mg Take [address] (ATARAX) 25 -22 by mouth 3 Jaskaran kes MG tablet [...] mouth Medical tablet 24 once. Center dextroamphe 2022-0 Yes Take by [facility] tamine-amph -22 mouth. [facility]ukes etamine 15:03: Medical (AdderalL) 24 Center 15 mg Tab baclofen 2022-0 Yes 10mg Q.[id number] Take [address] (LIORESAL) 1-22 [id number] by mouth 3 [facility]ukes 10 MG 15:03: 3D (three) Medical tablet 24 times Center daily arthralgia . albuterol 2022-0 Yes 1{puff} Inhale [address] HFA -22 puff by [facility] (VENTOLIN 15:03: mouth via Med ical HFA) 90 24 inhaler Center mcg/actuati every 6 on inhaler (six) hours as needed for Wheezing. traZODone 2022-0 Yes 100mg QD Take [address] (DESYREL) 1-22 mg by [facility]ukes 100 MG 15:03: mouth Medical tablet 24 nightly . Center mesalamine 2022-0 Yes 2400mg Q.5D Take 2,[address] (LIALDA) 1-22 mg by [facility]ukes 1.2 gram EC 15:03: mouth 2 Med ical tablet 24 (two) Center times daily Ulcerative colitis. gabapentin 2022-0 Yes 800mg Q.[id number] Take [address] (NEURONTIN) 1-22 [id number] mg by L ukes 800 MG 15:03: [...] 1{puff} Q.5D Inhale [address] propion-louis -22 puff by [facility]ukes meteroL 15:03: mouth via [...] mouth Medical tablet 24 once. Center dextroamphe 2022-0 Yes Take by [facility] tamine-amph 1-22 mouth. [facility]ukes etamine 15:03: Medical (AdderalL) 24 Center 15 mg Tab baclofen 2022-0 Yes 10mg Q.[id number] Take [address] (LIORESAL) 1-22 [id number] by mouth 3 [facility]ukes 10 MG 15:03: 3D (three) Medical tablet 24 times Center daily arthralgia . lamoTRIgine Yes 300mg QD Take [address] (LaMICtal 1-22 mg by [facility]ukes XR) 300 mg 00:00: mouth Medica l TR24 00 nightly. [place] lamoTRIgine Yes 300mg QD Take [address] (LaMICtal 1-22 mg by [facility]ukes XR) 300 mg 00:00: mouth Medica l TR24 00 nightly. [place] lamoTRIgine 0 Yes 300mg QD Take [address] (LaMICtal 1-22 mg by [facility]ukes XR) 300 mg 00:00: mouth Medica l TR24 00 nightly. [place] albuterol 2021-06 Yes 1{puff} Inhale [address] HFA 2-29 puff by Lukes (VENTOLIN 15:02: mouth via Med ical HFA) 90 20 inhaler Center mcg/actuati every 6 on inhaler (six) hours as needed for Wheezing. traZODone 2021-06 Yes 100mg QD Take [address] (DESYREL) 2-29 mg by Lukes 100 MG 15:02: mouth Medical tablet 20 nightly . [place] mesalamine 2021-06 Yes 2400mg Q.5D Take 2,[address] (LIALDA) 2-29 mg by [facility]ukes 1.2 gram EC 15:02: mouth 2 Med ical tablet 20 (two) Center times daily Ulcerative colitis. gabapentin 2021-06 Yes 800mg Q.[id number] Take [address] (NEURONTIN) 2-29 [id number] mg by L ukes 800 MG 15:02: [...] MG tablet 15:02: daily. Medica l 20 [place] fluticasone 2021-06 Yes 1{puff} Q.5D Inhale 1 [...] 15 mg Tab baclofen 2021-06 Yes 10mg Q.[id number] Take [address] (LIORESAL) 2-29 [id number] by mouth 3 [facility]ukes 10 MG 15:02: [...] daily Ulcerative colitis. gabapentin 2021-06 Yes 800mg Q.[id number] Take [address] (NEURONTIN) 2-29 [id number] mg by L ukes 800 MG 15:02: [...] 15 mg Tab baclofen 2021-06 Yes 10mg Q.[id number] Take [address] (LIORESAL) 2-29 [id number] by mouth 3 [facility] 10 MG 15:02: [...] up to 3 days. gabapentin 2021-06 Yes [id number] 100mg Take 1 Univers 100 mg 2-19 capsule by ity of capsule 00:00: mouth in [address] Branch and 1 capsule at noon and 1 capsule in the evening. gabapentin 2021-06 Yes [id number] 100mg Take 1 Univers 100 mg 2-19 capsule by ity of capsule 00:00: mouth in [address] and 1 capsule at noon and 1 capsule in the evening. gabapentin 2021-06 Yes [id number] 100mg Take 1 Univers 100 mg 2-19 capsule by ity of capsule 00:00: mouth in [address] morning [place] and 1 capsule at noon and 1 capsule in the evening. gabapentin 202- Yes [id number] 100mg Take 1 Univers 100 mg 2-19 capsule by ity of capsule 00:00: mouth in [address] and 1 capsule at noon and 1 capsule in the evening. gabapentin 2021- Yes [id number] 100mg Take 1 Univers 100 mg 2-19 capsule by ity of capsule 00:00: mouth in [address] and 1 capsule at noon and 1 capsule in the evening. gabapentin 2021- Yes [id number] 100mg Take 1 Univers 100 mg 2-19 capsule by ity of capsule 00:00: mouth in [address] and 1 capsule at noon and 1 capsule in the evening. gabapentin 2021- Yes [id number] 100mg Take 1 Univers 100 mg 2-19 capsule by ity of capsule 00:00: mouth in [address] and 1 capsule at noon and 1 capsule in the evening. gabapentin 2021- Yes [id number] 100mg Take 1 Univers 100 mg 2-19 capsule by ity of capsule 00:00: mouth in [address] and 1 capsule at noon and 1 capsule in the evening. gabapentin 2021- Yes [id number] 100mg Take 1 Univers 100 mg 2-19 capsule by ity of capsule 00:00: mouth in [address] and 1 capsule at noon and 1 capsule in the evening. gabapentin 2021- Yes [id number] 100mg Take 1 Univers 100 mg 2-19 capsule by ity of capsule 00:00: mouth in [address] and 1 capsule at noon and 1 capsule in the evening. gabapentin 202-1 Yes [id number] 100mg Take 1 Univers 100 mg 2-19 capsule by ity of capsule 00:00: mouth in [address] and 1 capsule at noon and 1 capsule in the evening. gabapentin 2021- Yes [id number] 100mg Take 1 Univers 100 mg 2-19 capsule by ity of capsule 00:00: mouth in [place] 00 the Medical morning Branch and 1 capsule at noon and 1 capsule in the evening. gabapentin 2021-06 Yes [id number] 100mg Take 1 Univers 100 mg 2-19 capsule by ity of capsule 00:00: mouth in [address] morning [place] and 1 capsule at noon and 1 capsule in the evening. gabapentin 2021-06 Yes [id number] 100mg Take 1 Univers 100 mg 2-19 capsule by ity of capsule 00:00: mouth in [address] morning [place] and 1 capsule at noon and 1 capsule in the evening. gabapentin 2021-06 Yes [id number] 100mg Take 1 Univers 100 mg 2-19 capsule by ity of capsule 00:00: mouth in [address] morning [place] and 1 capsule at noon and 1 capsule in the evening. gabapentin 2021-06 Yes [id number] 100mg Take 1 Univers 100 mg 2-19 capsule by ity of capsule 00:00: mouth in [address] morning [place] and 1 capsule at noon and 1 capsule in the evening. gabapentin 2021-06 Yes [id number] 100mg Take 1 Univers 100 mg 2-19 capsule by ity of capsule 00:00: mouth in [address] and 1 capsule at noon and 1 capsule in the evening. gabapentin 2021-06 Yes [id number] 100mg Take 1 Univers 100 mg 2-19 capsule by ity of capsule 00:00: mouth in [address] and 1 capsule at noon and 1 capsule in the evening. gabapentin 2021-06 Yes [id number] 100mg Take 1 Univers 100 mg 2-19 capsule by ity of capsule 00:00: mouth in [address] and 1 capsule at noon and 1 capsule in the evening. fluticasone 2021-06 Yes 1{puff} Inhale 1 [facility]al -salmeterol 1-[address] [facility] (ADVAIR) 09:18: mouth of 500-50 41 every 12 Medicin MCG/DOSE hours. e inhaler Cholecalcif 2021-06 Yes 400U Take 400 Ba ylor zheng 1-07 Units by [place] (VITAMIN 09:18: mouth. of D-3) 10 MCG 41 Medicin (400 UNIT) e TABS Ascorbic 2021-06 Yes 3000mg Take 3,000 B aylor Acid 1000 1-07 mg by [place] MG TABS 09:18: mouth. of 41 Medicin e hydrocortis 2021-[address] 100 [facility] one 1-04 mg [place] (CORTENEMA) 00:00: rectally of 100 MG/60ML 00 at Medicin enema bedtime. e fluticasone 2021-06 Yes 1{puff} Inhale 1 [place]al -salmeterol 0-27 Puff by Colle ge (ADVAIR) 11:47: mouth of 500-50 42 every 12 Medicin MCG/DOSE hours. e inhaler Cholecalcif 2021-06 Yes 400U Take 400 Ba ylor zheng 0-27 Units by [place] (VITAMIN 11:47: mouth. of D-3) 10 MCG 42 Medicin (400 UNIT) e TABS Ascorbic 2021-06 Yes 3000mg Take 3,000 B aylor Acid 1000 0-27 mg by [place] MG TABS 11:47: mouth. of 42 Medicin e amphetamine 2021-06 Yes [id number] 1{tbl} Take 1 Mikal -dextroamph 0-21 Tablet by Col lege etamine 00:00: mouth of (ADDERALL, 00 daily. In Medi mari 15MG,) 15 the e MG tablet morning amphetamine 2021-06 Yes [id number] 1{tbl} Take 1 Mikal -dextroamph 0-21 Tablet by Col lege etamine 00:00: mouth of (ADDERALL, 00 daily. In Medi mari 15MG,) 15 the e MG tablet morning cephALEXin 2021-06 Yes [facility] (KEFLEX) 0-18 [place] 500 MG 00:00: of capsule 00 Medicin e cephALEXin 2021-06 Yes [facility] (KEFLEX) 0-18 [place] 500 MG 00:00: of capsule 00 Medicin e fluticasone 2021-06 Yes 1{puff} Inhale 1 [facility] -salmeterol 0-17 Puff by [facility] (ADVAIR) 09:43: mouth of 500-50 15 every 12 Medicin MCG/DOSE hours. e inhaler Cholecalcif 2021-06 Yes 400U Take 400 [facility] zheng 0-17 Units by [place] (VITAMIN 09:43: mouth. of D-3) 10 MCG 15 Medicin (400 UNIT) e TABS fluticasone 2021-06 Yes 1{puff} Inhale 1 [facility] -salmeterol 0-17 Puff by Oralia sy (ADVAIR) 09:43: mouth of 500-50 15 every 12 Medicin MCG/DOSE hours. e inhaler Cholecalcif 2021-06 Yes 400U Take 400 [facility] zheng 0-17 Units by [place] (VITAMIN 09:43: mouth. of D-3) 10 MCG 15 Medicin (400 UNIT) e TABS Ascorbic 2021-06 Yes 3000mg Take 3,000 [facility] Acid 1000 0-17 mg by [place] MG TABS 09:43: mouth. of 15 Medicin e baclofen 2021-06 Yes [id number] TAKE ONE [facility] (LIORESAL) 0-14 TABLET BY [facility] ege 10 MG 00:00: MOUTH of tablet 00 THREE Medicin TIMES A e DAY NEEDED FOR PAIN baclofen 2021-06 Yes [id number] TAKE ONE [facility] [place] (LIORESAL) 0-14 TABLET BY [facility] ege 10 MG 00:00: MOUTH of tablet 00 THREE Medicin TIMES A e DAY NEEDED FOR PAIN baclofen 2021-06 Yes [id number] TAKE ONE [facility] (LIORESAL) 0-14 TABLET BY [facility] ege 10 MG 00:00: MOUTH of tablet 00 THREE Medicin TIMES A e DAY NEEDED FOR PAIN hydrocodone 2021-06 Yes [id number] 1{tbl} Take 1 [facility] -acetaminop 0-13 Tablet by [facility] (NORCO) 00:00: mouth of 5-325 mg 00 every 4 Medicin tablet hours as e needed for Pain. amphetamine 2021-06 Yes [id number] 1{tbl} Take 1 [facility] -dextroamph 0-13 Tablet by [facility] etamine 00:00: mouth of (ADDERALL, 00 daily. Medicin 5MG,) 5 MG Take in e tablet afternoon amphetamine 2021-06 Yes [id number] 1{tbl} Take 1 [facility] -dextroamph 0-13 Tablet by [facility] etamine 00:00: mouth of (ADDERALL, 00 daily. In Medi mari 15MG,) 15 the e MG tablet morning hydrocodone 2021-06 Yes [id number] 1{tbl} Take 1 [facility] -acetaminop 0-13 Tablet by [facility] (NORCO) 00:00: mouth of 5-325 mg 00 every 4 Medicin tablet hours as e needed for Pain. amphetamine 2021-06 Yes [id number] 1{tbl} Take 1 [facility] -dextroamph 0-13 Tablet by [facility]ge etamine 00:00: mouth of (ADDERALL, 00 daily. Medicin 5MG,) 5 MG Take in e tablet afternoon amphetamine 2021-06 Yes [id number] 1{tbl} Take 1 [facility] -dextroamph 0-13 Tablet by [facility] etamine 00:00: mouth of (ADDERALL, 00 daily. In Medi mari 15MG,) 15 the e MG tablet morning fluconazole 2021-06 Yes 150mg Take 150 [facility] (DIFLUCAN) 0-13 mg by [facility] 150 MG 00:00: mouth of tablet 00 daily. Medicin e hydrocodone 2021-06 Yes [id number] 1{tbl} Take 1 [facility] -acetaminop 0-13 Tablet by [facility] hen (NORCO) 00:00: mouth of 5-325 mg 00 every 4 Medicin tablet hours as e needed for Pain. amphetamine 2021-06 Yes [id number] 1{tbl} Take 1 [facility] -dextroamph 0-13 Tablet by [facility] etamine 00:00: mouth of (ADDERALL, 00 daily. Medicin 5MG,) 5 MG Take in e tablet afternoon fluconazole 2021-06 Yes 150mg Take 150 [facility] (DIFLUCAN) 0-13 mg by [place] 150 MG 00:00: mouth of tablet 00 daily. Medicin e hydrocodone 2021-06 Yes [id number] 1{tbl} Take 1 [facility] -acetaminop 0-13 Tablet by [facility] (NORCO) 00:00: mouth of 5-325 mg 00 every 4 Medicin tablet hours as e needed for Pain. amphetamine 2021-06 Yes [id number] 1{tbl} Take 1 [facility] -dextroamph 0-13 Tablet by [facility] etamine 00:00: mouth of (ADDERALL, 00 daily. Medicin 5MG,) 5 MG Take in e tablet afternoon fluconazole 2021-06 Yes 150mg Take 150 [facility] (DIFLUCAN) 0-13 mg by [place] 150 MG 00:00: mouth of tablet 00 daily. Medicin e midodrine 2021-06 Yes 2.5mg Take 2.5 Uni vers 2.5 mg 0-11 mg by ity of tablet 14:05: mouth. [address] 2021-06 Yes 2.5mg Take 2.5 Uni vers 2.5 mg 0-11 mg by ity of tablet 14:05: mouth. [address] 2021-06 Yes 2.5mg Take 2.5 Uni vers 2.5 mg 0-11 mg by ity of tablet 14:05: mouth. [address] 2021-06 Yes 2.5mg Take 2.5 Uni vers 2.5 mg 0-11 mg by ity of tablet 14:05: mouth. [address] 2021-06 Yes 2.5mg Take 2.5 Uni vers 2.5 mg 0-11 mg by ity of tablet 14:05: mouth. [address] 2021-06 Yes 2.5mg Take 2.5 Uni vers 2.5 mg 0-11 mg by ity of tablet 14:05: mouth. [address] 2021-06 Yes 2.5mg Take 2.5 Uni vers 2.5 mg 0-11 mg by ity of tablet 14:05: mouth. [address] 2021-06 Yes 2.5mg Take 2.5 Uni vers 2.5 mg 0-11 mg by ity of tablet 14:05: mouth. [address] 2021-06 Yes 2.5mg Take 2.5 Uni vers 2.5 mg 0-11 mg by ity of tablet 14:05: mouth. [address] 2021-06 Yes 2.5mg Take 2.5 Uni vers 2.5 mg 0-11 mg by ity of tablet 14:05: mouth. [address] 2021-06 Yes 2.5mg Take 2.5 Uni vers 2.5 mg 0-11 mg by ity of tablet 14:05: mouth. [address] 2021-06 Yes 2.5mg Take 2.5 Uni vers 2.5 mg 0-11 mg by ity of tablet 14:05: mouth. [address] 2021-06 Yes 2.5mg Take 2.5 Uni vers 2.5 mg 0-11 mg by ity of tablet 14:05: mouth. [address] 2021-06 Yes 2.5mg Take 2.5 Uni vers 2.5 mg 0-11 mg by ity of tablet 14:05: mouth. [address] 2021-06 Yes 2.5mg Take 2.5 Uni vers 2.5 mg 0-11 mg by ity of tablet 14:05: mouth. [address] 2021-06 Yes 2.5mg Take 2.5 Uni vers 2.5 mg 0-11 mg by ity of tablet 14:05: mouth. [address] 2021-06 Yes 2.5mg Take 2.5 Uni vers 2.5 mg 0-11 mg by ity of tablet 14:05: mouth. [address] 2021-06 Yes 2.5mg Take 2.5 Uni vers 2.5 mg 0-11 mg by ity of tablet 14:05: mouth. [address] 2021-06 Yes 2.5mg Take 2.5 Uni vers 2.5 mg 0-11 mg by ity of tablet 14:05: mouth. [address] 2021-06 Yes 2.5mg Take 2.5 Uni vers 2.5 mg 0-11 mg by ity of tablet 14:05: mouth. [address] 2021-06 Yes 2.5mg Take 2.5 Uni vers 2.5 mg 0-11 mg by ity of tablet 14:05: mouth. [address] 2021-06 Yes 2.5mg Take 2.5 Uni vers 2.5 mg 0-11 mg by ity of tablet 14:05: mouth. [address] 2021-06 Yes 2.5mg Take 2.5 Uni vers 2.5 mg 0-11 mg by ity of tablet 14:05: mouth. [address] 2021-06 Yes 2.5mg Take 2.5 Uni vers 2.5 mg 0-11 mg by ity of tablet 14:05: mouth. [address] 2021-06 Yes 2.5mg Take 2.5 Uni vers 2.5 mg 0-11 mg by ity of tablet 14:05: mouth. [address] 2021-06 Yes 2.5mg Take 2.5 Uni vers 2.5 mg 0-11 mg by ity of tablet 14:05: mouth. [address] Branch midodrine 2021-06 Yes 2.5mg Take 2.5 Uni vers 2.5 mg 0-11 mg by ity of tablet 14:05: mouth. [address] Branch midodrine 2021-06 Yes 2.5mg Take 2.5 Uni vers 2.5 mg 0-11 mg by ity of tablet 14:05: mouth. [address] Branch BUPROPION 2021-06 Yes [id number] 450mg Take 450 Univers HCL 0-11 mg by ity of (WELLBUTRIN 14:02: mouth [place] ORAL) 34 daily. [facility] traZODONE 2021-06 Yes 100mg Take 100 Uni vers (DESYREL) 0-11 mg by ity of 100 mg 14:02: mouth at [place] tablet 34 bedtime. [facility] Branch BUPROPION 2021-06 Yes [id number] 450mg Take 450 Univers HCL 0-11 mg by ity of (WELLBUTRIN 14:02: mouth [place] ORAL) 34 daily. Medical Branch traZODONE 2021-06 Yes 100mg Take 100 Uni vers (DESYREL) 0-11 mg by ity of 100 mg 14:02: mouth at [place] tablet 34 bedtime. [facility] Branch BUPROPION 2021-06 Yes [id number] 450mg Take 450 Univers HCL 0-11 mg by ity of (WELLBUTRIN 14:02: mouth [place] ORAL) 34 daily. Medical Branch traZODONE 2021-06 Yes 100mg Take 100 Uni vers (DESYREL) 0-11 mg by ity of 100 mg 14:02: mouth at [place] tablet 34 bedtime. [facility] Branch BUPROPION 2021-06 Yes [id number] 450mg Take 450 Univers HCL 0-11 mg by ity of (WELLBUTRIN 14:02: mouth [place] ORAL) 34 daily. Medical Branch traZODONE 2021-06 Yes 100mg Take 100 Uni vers (DESYREL) 0-11 mg by ity of 100 mg 14:02: mouth at [place] tablet 34 bedtime. [facility] BUPROPION 2021-06 Yes [id number] 450mg Take 450 Univers HCL 0-11 mg by ity of (WELLBUTRIN 14:02: mouth [place] ORAL) 34 daily. [facility] traZODONE 2021-06 Yes 100mg Take 100 Uni vers (DESYREL) 0-11 mg by ity of 100 mg 14:02: mouth at [place] tablet 34 bedtime. [facility] BUPROPION 2021-06 Yes [id number] 450mg Take 450 Univers HCL 0-11 mg by ity of (WELLBUTRIN 14:02: mouth [place] ORAL) 34 daily. [facility] traZODONE 2021-06 Yes 100mg Take 100 Uni vers (DESYREL) 0-11 mg by ity of 100 mg 14:02: mouth at [place] tablet 34 bedtime. [facility] BUPROPION 2021-06 Yes [id number] 450mg Take 450 Univers HCL 0-11 mg by ity of (WELLBUTRIN 14:02: mouth [place] ORAL) 34 daily. [facility] traZODONE 2021-06 Yes 100mg Take 100 Uni vers (DESYREL) 0-11 mg by ity of 100 mg 14:02: mouth at [place] tablet 34 bedtime. [facility] BUPROPION 2021-06 Yes [id number] 450mg Take 450 Univers HCL 0-11 mg by ity of (WELLBUTRIN 14:02: mouth [place] ORAL) 34 daily. [facility] traZODONE 2021-06 Yes 100mg Take 100 Uni vers (DESYREL) 0-11 mg by ity of 100 mg 14:02: mouth at [place] tablet 34 bedtime. [facility] BUPROPION 2021-06 Yes [id number] 450mg Take 450 Univers HCL 0-11 mg by ity of (WELLBUTRIN 14:02: mouth [place] ORAL) 34 daily. [facility] Branch traZODONE 2021-06 Yes 100mg Take 100 Uni vers (DESYREL) 0-11 mg by ity of 100 mg 14:02: mouth at [place] tablet 34 bedtime. [facility] BUPROPION 2021-06 Yes [id number] 450mg Take 450 Univers HCL 0-11 mg by ity of (WELLBUTRIN 14:02: mouth [place] ORAL) 34 daily. [facility] traZODONE 2021-06 Yes 100mg Take 100 Uni vers (DESYREL) 0-11 mg by ity of 100 mg 14:02: mouth at [place] tablet 34 bedtime. [facility] BUPROPION 2021-06 Yes [id number] 450mg Take 450 Univers HCL 0-11 mg by ity of (WELLBUTRIN 14:02: mouth [place] ORAL) 34 daily. Medical Branch traZODONE 2021-06 Yes 100mg Take 100 Uni vers (DESYREL) 0-11 mg by ity of 100 mg 14:02: mouth at [place] tablet 34 bedtime. [facility] Branch BUPROPION 2021-06 Yes [id number] 450mg Take 450 Univers HCL 0-11 mg by ity of (WELLBUTRIN 14:02: mouth [place] ORAL) 34 daily. [facility] traZODONE 2021-06 Yes 100mg Take 100 Uni vers (DESYREL) 0-11 mg by ity of 100 mg 14:02: mouth at [place] tablet 34 bedtime. [facility] BUPROPION 2021-06 Yes [id number] 450mg Take 450 Univers HCL 0-11 mg by ity of (WELLBUTRIN 14:02: mouth [place] ORAL) 34 daily. [facility] traZODONE 2021-06 Yes 100mg Take 100 Uni vers (DESYREL) 0-11 mg by ity of 100 mg 14:02: mouth at [place] tablet 34 bedtime. [facility] BUPROPION 2021-06 Yes [id number] 450mg Take 450 Univers HCL 0-11 mg by ity of (WELLBUTRIN 14:02: mouth [place] ORAL) 34 daily. [facility] traZODONE 2021-06 Yes 100mg Take 100 Uni vers (DESYREL) 0-11 mg by ity of 100 mg 14:02: mouth at [place] tablet 34 bedtime. [facility] BUPROPION 2021-06 Yes [id number] 450mg Take 450 Univers HCL 0-11 mg by ity of (WELLBUTRIN 14:02: mouth [place] ORAL) 34 daily. [facility] traZODONE 2021-06 Yes 100mg Take 100 Uni vers (DESYREL) 0-11 mg by ity of 100 mg 14:02: mouth at [place] tablet 34 bedtime. [facility] BUPROPION 2021-06 Yes [id number] 450mg Take 450 Univers HCL 0-11 mg by ity of (WELLBUTRIN 14:02: mouth [place] ORAL) 34 daily. [facility] traZODONE 2021-06 Yes 100mg Take 100 Uni vers (DESYREL) 0-11 mg by ity of 100 mg 14:02: mouth at [place] tablet 34 bedtime. Medical Branch BUPROPION 2021-06 Yes [id number] 450mg Take 450 Univers HCL 0-11 mg by ity of (WELLBUTRIN 14:02: mouth [place] ORAL) 34 daily. [facility] traZODONE 2021-06 Yes 100mg Take 100 Uni vers (DESYREL) 0-11 mg by ity of 100 mg 14:02: mouth at [place] tablet 34 bedtime. [facility] BUPROPION 2021-06 Yes [id number] 450mg Take 450 Univers HCL 0-11 mg by ity of (WELLBUTRIN 14:02: mouth [place] ORAL) 34 daily. [facility] traZODONE 2021-06 Yes 100mg Take 100 Uni vers (DESYREL) 0-11 mg by ity of 100 mg 14:02: mouth at [place] tablet 34 bedtime. [facility] BUPROPION 2021-06 Yes [id number] 450mg Take 450 Univers HCL 0-11 mg by ity of (WELLBUTRIN 14:02: mouth [place] ORAL) 34 daily. [facility] traZODONE 2021-06 Yes 100mg Take 100 Uni vers (DESYREL) 0-11 mg by ity of 100 mg 14:02: mouth at [place] tablet 34 bedtime. [facility] BUPROPION 2021-06 Yes [id number] 450mg Take 450 Univers HCL 0-11 mg by ity of (WELLBUTRIN 14:02: mouth [place] ORAL) 34 daily. [facility] traZODONE 2021-06 Yes 100mg Take 100 Uni vers (DESYREL) 0-11 mg by ity of 100 mg 14:02: mouth at [place] tablet 34 bedtime. [facility] BUPROPION 2021-06 Yes [id number] 450mg Take 450 Univers HCL 0-11 mg by ity of (WELLBUTRIN 14:02: mouth [place] ORAL) 34 daily. [facility] traZODONE 2021-06 Yes 100mg Take 100 Uni vers (DESYREL) 0-11 mg by ity of 100 mg 14:02: mouth at [place] tablet 34 bedtime. [facility] BUPROPION 2021-06 Yes [id number] 450mg Take 450 Univers HCL 0-11 mg by ity of (WELLBUTRIN 14:02: mouth [place] ORAL) 34 daily. [facility] traZODONE 2021-06 Yes 100mg Take 100 Uni vers (DESYREL) 0-11 mg by ity of 100 mg 14:02: mouth at [place] tablet 34 bedtime. [facility] BUPROPION 2021-06 Yes [id number] 450mg Take 450 Univers HCL 0-11 mg by ity of (WELLBUTRIN 14:02: mouth [place] ORAL) 34 daily. Medical Branch traZODONE 2021-06 Yes 100mg Take 100 Uni vers (DESYREL) 0-11 mg by ity of 100 mg 14:02: mouth at [place] tablet 34 bedtime. [facility] BUPROPION 2021-06 Yes [id number] 450mg Take 450 Univers HCL 0-11 mg by ity of (WELLBUTRIN 14:02: mouth [place] ORAL) 34 daily. [facility] traZODONE 2021-06 Yes 100mg Take 100 Uni vers (DESYREL) 0-11 mg by ity of 100 mg 14:02: mouth at [place] tablet 34 bedtime. [facility] BUPROPION 2021-06 Yes [id number] 450mg Take 450 Univers HCL 0-11 mg by ity of (WELLBUTRIN 14:02: mouth [place] ORAL) 34 daily. [facility] traZODONE 2021-06 Yes 100mg Take 100 Uni vers (DESYREL) 0-11 mg by ity of 100 mg 14:02: mouth at [place] tablet 34 bedtime. [facility] BUPROPION 2021-06 Yes [id number] 450mg Take 450 Univers HCL 0-11 mg by ity of (WELLBUTRIN 14:02: mouth [place] ORAL) 34 daily. [facility] traZODONE 2021-06 Yes 100mg Take 100 Uni vers (DESYREL) 0-11 mg by ity of 100 mg 14:02: mouth at [place] tablet 34 bedtime. [facility] BUPROPION 2021-06 Yes [id number] 450mg Take 450 Univers HCL 0-11 mg by ity of (WELLBUTRIN 14:02: mouth [place] ORAL) 34 daily. [facility] traZODONE 2021-06 Yes 100mg Take 100 Uni vers (DESYREL) 0-11 mg by ity of 100 mg 14:02: mouth at [place] tablet 34 bedtime. [facility] BUPROPION 2021-06 Yes [id number] 450mg Take 450 Univers HCL 0-11 mg by ity of (WELLBUTRIN 14:02: mouth [place] ORAL) 34 daily. [facility] traZODONE 2021-06 Yes 100mg Take 100 Uni vers (DESYREL) 0-11 mg by ity of 100 mg 14:02: mouth at [place] tablet 34 bedtime. Medical Branch gabapentin 2021-06 Yes [id number] 600mg Take 600 [facility] enacarbil 0-11 mg by ity of (HORIZANT) 00:00: mouth [place] 600 mg TbSR 00 (two) Medical times Branch daily. gabapentin 2021-06 Yes [id number] 600mg Take 600 [facility] enacarbil 0-11 mg by ity of (HORIZANT) 00:00: mouth [place] 600 mg TbSR 00 (two) Medical times Branch daily. gabapentin 2021-06 Yes [id number] 600mg Take 600 [facility] enacarbil 0-11 mg by ity of (HORIZANT) 00:00: mouth [place] 600 mg TbSR 00 (two) Medical times Branch daily. gabapentin 2021-06 Yes [id number] 600mg Take 600 [facility] enacarbil 0-11 mg by ity of (HORIZANT) 00:00: mouth [place] 600 mg TbSR 00 (two) Medical times Branch daily. gabapentin 2021-06 Yes [id number] 600mg Take 600 [facility] enacarbil 0-11 mg by ity of (HORIZANT) 00:00: mouth [place] 600 mg TbSR 00 (two) Medical times Branch daily. gabapentin 2021-06 Yes [id number] 600mg Take 600 [facility] enacarbil 0-11 mg by ity of (HORIZANT) 00:00: mouth [place] 600 mg TbSR 00 (two) Medical times Branch daily. gabapentin 2021-06 Yes [id number] 600mg Take 600 [facility] enacarbil 0-11 mg by ity of (HORIZANT) 00:00: mouth [place] 600 mg TbSR 00 (two) Medical times Branch daily. gabapentin 2021-06 Yes [id number] 600mg Take 600 [facility] enacarbil 0-11 mg by ity of (HORIZANT) 00:00: mouth [place] 600 mg TbSR 00 (two) Medical times Branch daily. gabapentin 2021-06 Yes [id number] 600mg Take 600 [facility] enacarbil 0-11 mg by ity of (HORIZANT) 00:00: mouth [place] 600 mg TbSR 00 (two) Medical times Branch daily. gabapentin 2021-06 Yes [id number] 600mg Take 600 [facility] enacarbil 0-11 mg by ity of (HORIZANT) 00:00: mouth [place] 600 mg TbSR 00 (two) Medical times Branch daily. gabapentin 2021-06 Yes [id number] 600mg Take 600 [facility] enacarbil 0-11 mg by ity of (HORIZANT) 00:00: mouth [place] 600 mg TbSR 00 (two) Medical times Branch daily. gabapentin 2021-06 Yes [id number] 600mg Take 600 [facility] enacarbil 0-11 mg by ity of (HORIZANT) 00:00: mouth [place] 600 mg TbSR 00 (two) Medical times Branch daily. gabapentin 2021-06 Yes [id number] 600mg Take 600 [facility] enacarbil 0-11 mg by ity of (HORIZANT) 00:00: mouth [place] 600 mg TbSR 00 (two) Medical times Branch daily. gabapentin 2021-06 Yes [id number] 600mg Take 600 [facility] enacarbil 0-11 mg by ity of (HORIZANT) 00:00: mouth [place] 600 mg TbSR 00 (two) Medical times Branch daily. gabapentin 2021-06 Yes [id number] 600mg Take 600 [facility] enacarbil 0-11 mg by ity of (HORIZANT) 00:00: mouth [place] 600 mg TbSR 00 (two) Medical times Branch daily. gabapentin 2021-06 Yes [id number] 600mg Take 600 [facility] enacarbil 0-11 mg by ity of (HORIZANT) 00:00: mouth [place] 600 mg TbSR 00 (two) Medical times Branch daily. gabapentin 2021-06 Yes [id number] 600mg Take 600 [facility] enacarbil 0-11 mg by ity of (HORIZANT) 00:00: mouth [place] 600 mg TbSR 00 (two) Medical times Branch daily. gabapentin 2021-06 Yes [id number] 600mg Take 600 [facility] enacarbil 0-11 mg by ity of (HORIZANT) 00:00: mouth [place] 600 mg TbSR 00 (two) Medical times Branch daily. gabapentin 2021-06 Yes [id number] 600mg Take 600 [facility] enacarbil 0-11 mg by ity of (HORIZANT) 00:00: mouth [place] 600 mg TbSR 00 (two) Medical times Branch daily. gabapentin 2021-06 Yes [id number] 600mg Take 600 [facility] enacarbil 0-11 mg by ity of (HORIZANT) 00:00: mouth [place] 600 mg TbSR 00 (two) Medical times Branch daily. gabapentin 2021-06 Yes [id number] 600mg Take 600 [facility] enacarbil 0-11 mg by ity of (HORIZANT) 00:00: mouth [place] 600 mg TbSR 00 (two) Medical times Branch daily. gabapentin 2021-06 Yes [id number] 600mg Take 600 [facility] enacarbil 0-11 mg by ity of (HORIZANT) 00:00: mouth [place] 600 mg TbSR 00 (two) Medical times Branch daily. gabapentin 2021-06 Yes [id number] 600mg Take 600 [facility] enacarbil 0-11 mg by ity of (HORIZANT) 00:00: mouth [place] 600 mg TbSR 00 (two) Medical times Branch daily. gabapentin 2021-06 Yes [id number] 600mg Take 600 [facility] enacarbil 0-11 mg by ity of (HORIZANT) 00:00: mouth [place] 600 mg TbSR 00 (two) Medical times Branch daily. gabapentin 2021-06 Yes [id number] 600mg Take 600 [facility] enacarbil 0-11 mg by ity of (HORIZANT) 00:00: mouth 2 [place] 600 mg TbSR 00 (two) Medical times Branch daily. gabapentin 2021-06 Yes [id number] 600mg Take 600 [facility] enacarbil 0-11 mg by ity of (HORIZANT) 00:00: mouth 2 [place] 600 mg TbSR 00 (two) Medical times Branch daily. gabapentin 2021-06 Yes [id number] 600mg Take 600 [facility] enacarbil 0-11 mg by ity of (HORIZANT) 00:00: mouth 2 [place] 600 mg TbSR 00 (two) Medical times Branch daily. gabapentin 2021-06 Yes [id number] 600mg Take 600 [facility] enacarbil 0-11 mg by ity of (HORIZANT) 00:00: mouth 2 [place] 600 mg TbSR 00 (two) Medical times Branch daily. Gabapentin 2022-1 Yes 600mg Take 600 [facility] Enacarbil 0-11 mg by [place] (HORIZANT) 00:00: mouth. of 600 MG TBCR 00 Medicin e Gabapentin 2021-06 Yes 600mg Take 600 [facility] Enacarbil 0-11 mg by [place] (HORIZANT) 00:00: mouth. of 600 MG TBCR 00 Medicin e Gabapentin 2021-06 Yes 600mg Take 600 [facility] Enacarbil 0-11 mg by [place] (HORIZANT) 00:00: mouth. of 600 MG TBCR 00 Medicin e metoprolol 2021-06 Yes Univers tartrate 25 0-09 ity of mg tablet 00:00: [place] [facility] metoprolol 2021-06 Yes Univers tartrate 25 0-09 ity of mg tablet 00:00: [place] [facility] metoprolol 2021-06 Yes Univers tartrate 25 0-09 ity of mg tablet 00:00: [place] [facility] metoprolol 2021-06 Yes Univers tartrate 25 0-09 ity of mg tablet 00:00: [place] [facility] metoprolol 2021-06 Yes Univers tartrate 25 0-09 ity of mg tablet 00:00: [place] [facility] metoprolol 2021-06 Yes Univers tartrate 25 0-09 ity of mg tablet 00:00: [place] [facility] metoprolol 2021-06 Yes Univers tartrate 25 0-09 ity of mg tablet 00:00: [place] [facility] metoprolol 2021-06 Yes Univers tartrate 25 0-09 ity of mg tablet 00:00: [place] [facility] metoprolol 2021-06 Yes Univers tartrate 25 0-09 ity of mg tablet 00:00: [place] [facility] metoprolol 2021-06 Yes Univers tartrate 25 0-09 ity of mg tablet 00:00: [place] [facility] metoprolol 2021-06 Yes Univers tartrate 25 0-09 ity of mg tablet 00:00: [place] [facility] metoprolol 2021-06 Yes Univers tartrate 25 0-09 ity of mg tablet 00:00: [place] [facility] metoprolol 2021-06 Yes Univers tartrate 25 0-09 ity of mg tablet 00:00: [place] [facility] metoprolol 2021-06 Yes Univers tartrate 25 0-09 ity of mg tablet 00:00: [address] Branch metoprolol 2021-06 Yes Univers tartrate 25 0-09 ity of mg tablet 00:00: [place] [facility] metoprolol 2021-06 Yes Univers tartrate 25 0-09 ity of mg tablet 00:00: [place] [facility] metoprolol 2021-06 Yes Univers tartrate 25 0-09 ity of mg tablet 00:00: [address] metoprolol 2021-06 Yes Univers tartrate 25 0-09 ity of mg tablet 00:00: [place] [facility] metoprolol 2021-06 Yes Univers tartrate 25 0-09 ity of mg tablet 00:00: [address] metoprolol 2021-06 Yes Univers tartrate 25 0-09 ity of mg tablet 00:00: [address] metoprolol 2021-06 Yes Univers tartrate 25 0-09 ity of mg tablet 00:00: [address] metoprolol 2021-06 Yes Univers tartrate 25 0-09 ity of mg tablet 00:00: [place] [facility] metoprolol 2021-06 Yes Univers tartrate 25 0-09 ity of mg tablet 00:00: [place] [facility] metoprolol 2021-06 Yes Univers tartrate 25 0-09 ity of mg tablet 00:00: [place] [facility] metoprolol 2021-06 Yes Univers tartrate 25 0-09 ity of mg tablet 00:00: [address] metoprolol 2021-06 Yes Univers tartrate 25 0-09 ity of mg tablet 00:00: [place] [facility] metoprolol 2021-06 Yes Univers tartrate 25 0-09 ity of mg tablet 00:00: [address] metoprolol 2021-06 Yes Univers tartrate 25 0-09 ity of mg tablet 00:00: [address] lamoTRIgine 2021-06 Yes Univer s 300 mg TR24 0-05 ity of 00:00: [place] [facility] lamoTRIgine 2021- Yes Univer s 300 mg TR24 0-05 ity of 00:00: [address] lamoTRIgine 2021-06 Yes Univer s 300 mg TR24 0-05 ity of 00:00: [address] lamoTRIgine 2022-1 Yes Univer s 300 mg TR24 0-05 ity of 00:00: [place] 00 Medical Branch lamoTRIgine 2- Yes [facility] s 300 mg TR24 0-05 ity of 00:00: [place] [facility] lamoTRIgine 2021- Yes [facility] 300 mg TR24 0-05 ity of 00:00: [place] [facility] lamoTRIgine 2021- Yes [facility] s 300 mg TR24 0-05 ity of 00:00: [place] [facility] lamoTRIgine 2021- Yes Un[facility] s 300 mg TR24 0-05 ity of 00:00: [place] [facility] lamoTRIgine 2021- Yes Un[facility] s 300 mg TR24 0-05 ity of 00:00: [place] [facility] lamoTRIgine 2021- Yes Un[facility] s 300 mg TR24 0-05 ity of 00:00: [place] [facility] lamoTRIgine 2021-06 Yes Univer s 300 mg TR24 0-05 ity of 00:00: [place] [facility] lamoTRIgine 2021- Yes Un[facility] s 300 mg TR24 0-05 ity of 00:00: [place] [facility] lamoTRIgine 2021- Yes Un[facility] s 300 mg TR24 0-05 ity of 00:00: [place] [facility] lamoTRIgine 2021- Yes Un[facility] s 300 mg TR24 0-05 ity of 00:00: [place] [facility] lamoTRIgine 2021- Yes Un[facility] s 300 mg TR24 0-05 ity of 00:00: [place] [facility] lamoTRIgine 2- Yes Un[facility] s 300 mg TR24 0-05 ity of 00:00: [place] [facility] lamoTRIgine 2- Yes Un[facility] s 300 mg TR24 0-05 ity of 00:00: [place] [facility] lamoTRIgine 2021- Yes Un[facility] s 300 mg TR24 0-05 ity of 00:00: [place] [facility] lamoTRIgine 2021- Yes Un[facility] s 300 mg TR24 0-05 ity of 00:00: [place] [facility] lamoTRIgine 2021- Yes Un[facility] s 300 mg TR24 0-05 ity of 00:00: [place] 00 [facility] lamoTRIgine 2021-06 Yes Univer s 300 mg TR24 0-05 ity of 00:00: [facility] Branch lamoTRIgine 2021-06 Yes Univer s 300 mg TR24 0-05 ity of 00:00: [place] [facility] lamoTRIgine 2021-06 Yes Univer s 300 mg TR24 0-05 ity of 00:00: [place] [facility] lamoTRIgine 2021-06 Yes Univer s 300 mg TR24 0-05 ity of 00:00: [place] [facility] lamoTRIgine 2021-06 Yes Univer s 300 mg TR24 0-05 ity of 00:00: [place] [facility] lamoTRIgine 2021-06 Yes Univer s 300 mg TR24 0-05 ity of 00:00: [place] [facility] lamoTRIgine 2021-06 Yes Univer s 300 mg TR24 0-05 ity of 00:00: [place] [facility] lamoTRIgine 2021-06 Yes Univer s 300 mg TR24 0-05 ity of 00:00: [place] [facility] ondansetron 2021- No 4mg Q6H [...] 6 (six) hours for 3 days. ondansetron 0 2021- No 4mg Q6H Take 1 Met [...] [place] mg tablet 00 [facility] hydrOXYzine 2022-0 Yes Univer s 25 mg 9-29 ity [...] mg 9-29 ity of tablet 00:00: [place] [facility] dextroamphe 0 Yes Univer s tamine-amph 9-29 ity of etamine 15 00:00: [place] mg tablet 00 Medical Branch hydrOXYzine 0 Yes Univer s 25 mg 9-29 ity of tablet 00:00: [place] [facility] dextroamphe 0 Yes Univer s tamine-amph 9-29 ity of etamine 15 00:00: [place] mg tablet 00 Medical Branch hydrOXYzine 0 Yes Univer s 25 mg 9-29 ity of tablet 00:00: [place] 00 [facility] dextroamphe Yes Univer s tamine-amph 9-29 ity of etamine 15 00:00: [place] mg tablet 00 Medical Branch hydrOXYzine 0 Yes Univer s 25 mg 9-29 ity of tablet 00:00: [place] [facility] dextroamphe 0 Yes Univer s tamine-amph 9-29 ity of etamine 15 00:00: [place] mg tablet 00 Medical Branch hydrOXYzine 0 Yes Univer s 25 mg 9-29 ity of tablet 00:00: [place] [facility] dextroamphe 0 Yes Univer s tamine-amph 9-29 ity of etamine 15 00:00: [place] mg tablet 00 [facility] hydrOXYzine 0 Yes Univer s 25 mg 9-29 ity of tablet 00:00: [place] 00 [facility] PAXLOVID, 2021- No [facility] 300/100, 20 9-27 10-13 College x [...] (two) times daily for 1 day. cefpodoxime 2-0 2022- No 100mg Q.5D Take [address] [facility] [address] [facility] (VANTIN[facility] 03-18 [facility] MG 00:00: 00:00 (100 mg Medical tablet 00 :00 total) by Center mouth 2 (two) times daily for 1 day. cefpodoxime 2022-0 2022- No 100mg Q.5D Take [address] [facility] [address] [facility] (VANTIN) 03-18 tablet [facility] 100 MG 00:00: 00:00 (100 mg Medical tablet 00 :00 total) by Center mouth 2 (two) times daily for 1 day. cefpodoxime 2-0 2- No 100mg Q.5D Take [address] [facility] [address] [facility] (VANTIN) 03-18 [facility] 100 MG 00:00: 00:00 (100 mg Medical tablet 00 :00 total) by Center mouth 2 (two) times daily for 1 day. dextroamphe 2021-0 2022- No 15mg QD Take [address] [facility] tamine-amph 03-17 by mouth Ad[facility] es etamine 15 15:26: 00:00 every Medic al mg Tab 04 :00 morning . [place] dextroamphe 2021-0 2- No 15mg QD Take [address] [facility] tamine-amph 03-17 by mouth Ad[facility] es etamine 15 15:26: 00:00 every Medic al mg Tab 04 :00 morning . [place] dextroamphe 2-0 2- No 15mg QD Take [address] [facility] tamine-amph 03-17 by mouth Ad[facility] es etamine 15 15:26: 00:00 every Medic al mg Tab 04 :00 morning . Center dextroamphe 2-0 2022- No 15mg QD Take [address] [facility] tamine-amph 03-17 by mouth Ad[facility] es etamine 15 15:26: 00:00 every Medic al mg Tab 04 :00 morning . [place] dextroamphe 2022-0 2022- No 15mg QD Take [address] [facility] tamine-amph 03-17 by mouth Ady es etamine 15 15:26: 00:00 every Medic al mg Tab 04 :00 morning . [place] methocarbam 2-0 Yes Univer s oL 500 mg 9-24 ity of tablet 00:00: [place] [address] [facility] fluconazole 2022-0 Yes Univer s 150 mg 9-24 ity of tablet 00:00: [place] [address] [facility] methocarbam 2022-0 Yes Univer s oL 500 mg 9-24 ity of tablet 00:00: [place] [address] [facility] fluconazole 2022-0 Yes Univer s 150 mg 9-24 ity of tablet 00:00: [place] [address] [facility] methocarbam 2022-0 Yes Univer s oL 500 mg 9-24 ity of tablet 00:00: [place] [address] [facility] fluconazole 2022-0 Yes Univer s 150 mg 9-24 ity of tablet 00:00: [place] [address] [facility] methocarbam 2022-0 Yes Univer s oL 500 mg 9-24 ity of tablet 00:00: [place] [address] [facility] fluconazole 2022-0 Yes Univer s 150 mg 9-24 ity of tablet 00:00: [place] [address] [facility] methocarbam 2022-0 Yes Univer s oL 500 mg 9-24 ity of tablet 00:00: [place] [address] [facility] fluconazole 2022-0 Yes Univer s 150 mg 9-24 ity of tablet 00:00: [place] [address] [facility] methocarbam 2022-0 Yes Univer s oL 500 mg 9-24 ity of tablet 00:00: [place] [address] [facility] fluconazole 2022-0 Yes Univer s 150 mg 9-24 ity of tablet 00:00: [place] [address] [facility] methocarbam 2022-0 Yes Univer s oL 500 mg 9-24 ity of tablet 00:00: [place] [address] [facility] fluconazole 2022-0 Yes Univer s 150 mg 9-24 ity of tablet 00:00: [place] [address] [facility] methocarbam 2022-0 Yes Univer s oL 500 mg 9-24 ity of tablet 00:00: [place] [address] [facility] fluconazole 2022-0 Yes Univer s 150 mg 9-24 ity of tablet 00:00: [place] [address] [facility] methocarbam 2022-0 Yes Univer s oL 500 mg 9-24 ity of tablet 00:00: [place] [address] [facility] fluconazole 2022-0 Yes Univer s 150 mg 9-24 ity of tablet 00:00: [place] 00 [facility] methocarbam 2022-0 Yes Univer s oL 500 mg 9-24 ity of tablet 00:00: [place] 00 [facility] fluconazole 2022-0 Yes Univer s 150 mg 9-24 ity of tablet 00:00: [place] 00 [facility] methocarbam 2022-0 Yes Univer s oL 500 mg 9-24 ity of tablet 00:00: [place] 00 [facility] fluconazole 2022-0 Yes Univer s 150 mg 9-24 ity of tablet 00:00: [place] 00 [facility] methocarbam 2022-0 Yes Univer s oL 500 mg 9-24 ity of tablet 00:00: [place] [address] [facility] fluconazole 2022-0 Yes Univer s 150 mg 9-24 ity of tablet 00:00: [place] [address] [facility] methocarbam 2022-0 Yes Univer s oL 500 mg 9-24 ity of tablet 00:00: [place] [address] [facility] fluconazole 2022-0 Yes Univer s 150 mg 9-24 ity of tablet 00:00: [place] [address] [facility] methocarbam 2022-0 Yes Univer s oL 500 mg 9-24 ity of tablet 00:00: [place] [address] [facility] fluconazole 2022-0 Yes Univer s 150 mg 9-24 ity of tablet 00:00: [place] [address] [facility] methocarbam 2022-0 Yes Univer s oL 500 mg 9-24 ity of tablet 00:00: [place] [address] [facility] fluconazole 2022-0 Yes Univer s 150 mg 9-24 ity of tablet 00:00: [place] [address] [facility] methocarbam 2022-0 Yes Univer s oL 500 mg 9-24 ity of tablet 00:00: [place] [address] [facility] fluconazole 2022-0 Yes Univer s 150 mg 9-24 ity of tablet 00:00: [place] [address] [facility] methocarbam 2022-0 Yes Univer s oL 500 mg 9-24 ity of tablet 00:00: [place] [address] [facility] fluconazole 2022-0 Yes Univer s 150 mg 9-24 ity of tablet 00:00: [place] [address] [facility] methocarbam 2022-0 Yes Univer s oL 500 mg 9-24 ity of tablet 00:00: [place] [address] [facility] fluconazole 2022-0 Yes Univer s 150 mg 9-24 ity of tablet 00:00: [place] 00 [facility] methocarbam 2022-0 Yes Univer s oL 500 mg 9-24 ity of tablet 00:00: [place] 00 [facility] fluconazole 2022-0 Yes Univer s 150 mg 9-24 ity of tablet 00:00: [place] 00 [facility] methocarbam 2022-0 Yes Univer s oL 500 mg 9-24 ity of tablet 00:00: [place] 00 [facility] fluconazole 2022-0 Yes Univer s 150 mg 9-24 ity of tablet 00:00: [place] 00 [facility] methocarbam 2022-0 Yes Univer s oL 500 mg 9-24 ity of tablet 00:00: [place] [address] [facility] fluconazole 2022-0 Yes Univer s 150 mg 9-24 ity of tablet 00:00: [place] [address] [facility] methocarbam 2022-0 Yes Univer s oL 500 mg 9-24 ity of tablet 00:00: [place] [address] [facility] fluconazole 2022-0 Yes Univer s 150 mg 9-24 ity of tablet 00:00: [place] [address] [facility] methocarbam 2022-0 Yes Univer s oL 500 mg 9-24 ity of tablet 00:00: [place] [address] [facility] fluconazole 2022-0 Yes Univer s 150 mg 9-24 ity of tablet 00:00: [place] [address] [facility] methocarbam 2022-0 Yes Univer s oL 500 mg 9-24 ity of tablet 00:00: [place] [address] [facility] fluconazole 2022-0 Yes Univer s 150 mg 9-24 ity of tablet 00:00: [place] [address] [facility] methocarbam 2022-0 Yes Univer s oL 500 mg 9-24 ity of tablet 00:00: [place] [address] [facility] fluconazole 2022-0 Yes Univer s 150 mg 9-24 ity of tablet 00:00: [place] [address] [facility] methocarbam 2022-0 Yes Univer s oL 500 mg 9-24 ity of tablet 00:00: [place] [address] [facility] fluconazole 2022-0 Yes Univer s 150 mg 9-24 ity of tablet 00:00: [place] 00 [facility] methocarbam 2022-0 Yes Univer s oL 500 mg 9-24 ity of tablet 00:00: [place] [address] [facility] fluconazole 2022-0 Yes Univer s 150 mg 9-24 ity of tablet 00:00: [place] [address] [facility] methocarbam 2022-0 Yes Univer s oL 500 mg 9-24 ity of tablet 00:00: [place] [facility] fluconazole 2021-0 Yes Univer s 150 mg 9-24 ity of tablet 00:00: [place] [facility] methocarbam 2021-0 Yes [facility] ol - [place] (ROBAXIN) 00:00: of 500 MG 00 Medicin tablet e methocarbam 2021-0 Yes [facility] ol -24 [place] (ROBAXIN) 00:00: of 500 MG 00 Medicin tablet e ibuprofen 2021-0 Yes 200mg Take 200 [facility] [facility] (MOTRIN) 9-24 mg by [place] 400 MG 00:00: mouth of tablet 00 every 6 Medicin hours as e needed. methocarbam 2021-0 Yes [facility] ol -24 [place] (ROBAXIN) 00:00: of 500 MG 00 Medicin tablet e ibuprofen 2021-0 Yes 200mg Take 200 [place] [facility] (MOTRIN) 9-24 mg by [place] 400 MG 00:00: mouth of tablet 00 every 6 Medicin hours as e needed. methocarbam 2021-0 Yes [facility] ol - [place] (ROBAXIN) 00:00: of 500 MG 00 Medicin tablet e ibuprofen 2021-0 Yes 200mg Take 200 [place] [facility] (MOTRIN) 9-24 mg by [place] 400 MG 00:00: mouth of tablet 00 [...] needed. Max Daily Amount: 6 tablets HYDROcodone 2022-0 Yes 1{tbl} Take [address] [facility] [address] [...] needed. Max Daily Amount: 6 tablets nitrofurant 2021-0 2021- No 100mg Q.5D Take [address] oin, 03-17 11-14 capsule [facility] macrocrysta 00:00: 00:00 (100 mg Me dical l-monohydra 00 :00 total) by [facility]gy ter te, mouth 2 (MACROBID) (two) 100 MG times capsule daily. nitrofurant 2021-2021- No 100mg Q.5D Take 1 [...] (two) 100 MG times capsule daily. ibuprofen 2021-0 2022- No 400mg Take [address] [facility] (ADVIL,MOTR 9-24 10-04 tablet [facility] IN) 400 MG 00:00: 23:59 (400 mg Med ical tablet 00 :00 total) by Center mouth every 6 (six) hours as needed for up to 10 days. methocarbam 2021-0 2022- No 500mg Q.25D Take [address] oL 9- 10-04 tablet [facility] (Robaxin) 00:00: 23:59 (500 mg Medi tyler 500 MG 00 :00 total) by Center tablet mouth 4 (four) times daily for 10 days. ibuprofen 2021-0 2022- No 400mg Take [address] [facility] (ADVIL,MOTR 9- 10-04 tablet [facility] [place]) 400 MG 00:00: 23:59 (400 mg Med ical tablet 00 :00 total) by Center mouth every 6 (six) hours as needed for up to 10 days. methocarbam 2021-0 2022- No 500mg Q.25D Take [address] oL 9- 10-04 tablet [facility] (Robaxin) 00:00: 23:59 (500 mg Medi tyler 500 MG 00 :00 total) by Center tablet mouth 4 (four) times daily for 10 days. ibuprofen 2021-0 2022- No 400mg Take [address] [facility] (ADVIL,MOTR 924 10-04 tablet [facility] IN) 400 MG 00:00: [...] No 400mg Take [address] [facility] (ADVIL,MOTR 9-24 10-04 tablet [facility] [place]) 400 MG 00:00: [...] (four) times daily for 10 days. ibuprofen 2021-2021- No 400mg Take 1 [facility] [...] times daily for 10 days. lamoTRIgine 2021-0 202- No 250mg QD Take [address] [facility] 250 mg TR24 9-22 09-22 mg by [facility] 01:30: 00:00 mouth Medical 29 :00 nightly . [place] lamoTRIgine 2021-0 2021- No 250mg QD Take [address] [facility] 250 mg TR24 9-22 09-22 mg by [facility] 01:30: 00:00 mouth Medical 29 :00 nightly . [place] lamoTRIgine 2021-0 2022- No 250mg QD Take [address] [facility] 250 mg TR24 9-22 09-22 mg by [facility] :30: 00:00 mouth Medical 29 :00 nightly . [place] lamoTRIgine 2021-0 2- No 250mg QD Take [address] [facility] 250 mg TR24 9-22 09-22 mg by [facility] :30: 00:00 mouth Medical 29 :00 nightly . [place] lamoTRIgine 2021-0 2- No 250mg QD Take [address] [facility] 250 mg TR24 9-22 09-22 mg by [facility] :30: 00:00 mouth Medical 29 :00 nightly . [place] dextroamphe 2021-2021- No Take by [facility] tamine-amph 03-15 mouth as Ad[facility] es etamine 5 01:29: 00:00 directed Med ical mg Tab 50 :00 In the [place] afternoon. dextroamphe 2021- No Take by [facility] tamine-amph 03-15 mouth as [place] es etamine 5 01:29: 00:00 directed Med ical mg Tab 50 :00 In the [place] afternoon. dextroamphe 2021- No Take by [facility] tamine-amph 03-15 mouth as [place] es etamine 5 01:29: 00:00 directed Med ical mg Tab 50 :00 In the [place] afternoon. dextroamphe 2021- No Take by [facility] tamine-amph 03-15 mouth as [place] es etamine 5 01:29: 00:00 directed Med ical mg Tab 50 :00 In the [place] afternoon. dextroamphe 2021- No Take by CH I tamine-amph 03-15 mouth as [facility] es etamine 5 01:29: 00:00 directed Med ical mg Tab 50 :00 In the [place] afternoon. LIALDA 1.2 0 Yes Univers gram [...] ity of tablet 00:00: [place] 00 [facility] [place] LIAA 1.2 2021-0 Yes Univers gram EC 9-22 ity of tablet 00:00: [place] 00 Medical [place] LIAA 1.2 2021-0 Yes Univers gram EC 9-22 ity of tablet 00:00: [place] 00 [facility] Branch LIAA 1.2 2021-0 Yes Univers gram EC 9-22 ity of tablet 00:00: [place] 00 Medical [place] LIAA 1.2 2021-0 Yes Univers gram EC 9-22 ity of tablet 00:00: [place] 00 [facility] LIAA 1.2 2021-0 Yes Univers gram EC 9-22 ity of tablet 00:00: [place] [facility] LIAA 1.2 2021-0 Yes Univers gram EC 9-22 ity of tablet 00:00: [place] 00 [facility] LIAA 1.2 2021-0 Yes Univers gram EC 9-22 ity of tablet 00:00: [place] 00 [facility] LIAA 1.2 2021-0 Yes Univers gram EC 9-22 ity of tablet 00:00: [place] 00 [facility] LIAA 1.2 2021-0 Yes Univers gram EC 9-22 ity of tablet 00:00: [place] 00 [facility] LIAA 1.2 2021-0 Yes Univers gram EC 9-22 ity of tablet 00:00: [place] 00 [facility] LIAA 1.2 2021-0 Yes Univers gram EC 9-22 ity of tablet 00:00: [place] 00 Medical [place] LIAA 1.2 2021-0 Yes Univers gram EC 9-22 ity of tablet 00:00: [place] 00 [facility] LIAA 1.2 2021-0 Yes Univers gram EC 9-22 ity of tablet 00:00: [place] 00 [facility] LIAA 1.2 2021-0 Yes Univers gram EC 9-22 ity of tablet 00:00: [place] [facility] LIAA 1.2 2021-0 Yes Univers gram EC 9-22 ity of tablet 00:00: [place] 00 [facility] LIAA 1.2 2021-0 Yes Univers gram EC 9- ity of tablet 00:00: [place] 00 [facility] LIALDA 1.2 2021- Yes Univers gram EC 9-22 ity of tablet 00:00: [place] [facility] LIALDA 1.2 2021- Yes Univers gram EC 9- ity of tablet 00:00: [place] [address] [facility] Branch propranoloL 2021- No 20mg Q.[id number] Take [address] [facility] (INDERAL) 03-07 [id number] by mouth 3 [facility] 20 MG 16:36: 00:00 3D (three) Medical tablet 44 :00 times Center daily. propranoloL 2021- No 20mg Q.[id number] Take [address] [facility] (INDERAL) 03-07 [id number] by mouth 3 [facility] 20 MG 16:36: 00:00 3D (three) Medical tablet 44 :00 times Center daily. propranoloL 2021- No 20mg Q.[id number] Take [address] [facility] (INDERAL) 03-07 [id number] by mouth 3 [facility] 20 MG 16:36: 00:00 3D (three) Medical tablet 44 :00 times Center daily. propranoloL 2021- No 20mg Q.[id number] Take [address] [facility] (INDERAL) 03-07 [id number] by mouth 3 [facility] 20 MG 16:36: 00:00 3D (three) Medical tablet 44 :00 times Center daily. propranoloL 2021- No 20mg Q.[id number] Take [address] [facility] (INDERAL) 03-07 [id number] by mouth 3 [facility] 20 MG 16:36: 00:00 3D (three) Medical tablet 44 :00 times Center daily. fluticasone 2021- No 1{puff} Inhale [address] [facility] -salmeterol 03-07 puff by Luke [facility] (ADVAIR) 16:35: 00:00 mouth via Med ical 100-50 21 :00 inhaler Center mcg/dose every 12 diskus (twelve) inhaler hours. fluticasone 2021- No 1{puff} Inhale [address] [facility] -salmeterol 9-14 -14 puff by Luke [facility] (ADVAIR) 16:35: 00:00 mouth via Med ical 100-50 21 :00 inhaler Center mcg/dose every 12 diskus (twelve) inhaler hours. fluticasone 2021-0 2- No 1{puff} Inhale [address] [facility] -salmeterol -14 -14 puff by Luke [facility] (ADVAIR) 16:35: 00:00 mouth via Med ical 100-50 21 :00 inhaler Center mcg/dose every 12 diskus (twelve) inhaler hours. fluticasone 2021-0 2021- No 1{puff} Inhale [address] [facility] -salmeterol -07 03- puff by Luke [facility] (ADVAIR) 16:35: 00:00 mouth via Med ical 100-50 21 :00 inhaler Center mcg/dose every 12 diskus (twelve) inhaler hours. fluticasone 2021-2021- No 1{puff} Inhale [address] [facility] -salmeterol -07 03- puff by Luke [facility] (ADVAIR) 16:35: 00:00 mouth via Med ical 100-50 21 :00 inhaler Center mcg/dose every 12 diskus (twelve) inhaler hours. dexlansopra 2021-2021- No 60mg QD Take [address] [facility] zole 60 mg 03-07 by mouth Luke s capsule 16:34: 00:00 daily. Medical 27 :00 [place] dexlansopra 2021- No 60mg QD Take [address] [facility] zole 60 mg 03-07 by mouth Luke s capsule 16:34: 00:00 daily. Medical 27 :00 [place] dexlansopra 2021-0 2- No 60mg QD Take [address] [facility] zole 60 mg 03-07 by mouth Luke s capsule 16:34: 00:00 daily. Medical 27 :00 [place] dexlansopra 2021-2- No 60mg QD Take [address] [facility] zole 60 mg 03-07 by mouth [facility] s capsule 16:34: 00:00 daily. Medical 27 :00 [place] dexlansopra 2021-0 2- No 60mg QD Take [address] [facility] zole 60 mg -07 03-14 by mouth Luke s capsule 16:34: 00:00 daily. Medical 27 :00 Center ascorbic 2-0 2022- No 3000mg QD Take 3,[address] [facility] acid, 9-14 09-14 mg by [facility] vitamin C, 16:33: 00:00 mouth Medic al (VITAMIN C) 56 :00 daily. [place] 1000 MG tablet ascorbic 2-0 2022- No 3000mg QD Take 3,[address] [facility] acid, 9-14 09-14 mg by [facility] vitamin C, 16:33: 00:00 mouth Medic al (VITAMIN C) 56 :00 daily. [place] 1000 MG tablet ascorbic 2-0 2022- No 3000mg QD Take 3,[address] [facility] acid, 9-14 09-14 mg by [facility] vitamin C, 16:33: 00:00 mouth Medic al (VITAMIN C) 56 :00 daily. [place] 1000 MG tablet ascorbic 2-0 2- No 3000mg QD Take 3,[address] [facility] acid, 9- 09-14 mg by [facility] vitamin C, 16:33: 00:00 mouth Medic al (VITAMIN C) 56 :00 daily. [place] 1000 MG tablet ascorbic 2-0 2- No 3000mg QD Take 3,[address] [facility] acid, 9-14 09-14 mg by [facility] vitamin C, 16:33: 00:00 mouth Medic al (VITAMIN C) 56 :00 daily. [place] 1000 MG tablet apixaban 2021-0 2022- No 5mg Q.5D Take [address] [facility] (ELIQUIS) 5 -07 03-14 by mouth 2 L u[facility] mg Tab 16:33: 00:00 (two) Medical tablet 29 :00 times Center daily. apixaban 2-0 2022- No 5mg Q.5D Take [address] [facility] (ELIQUIS) 5 - 09-14 by mouth 2 L [facility] mg Tab 16:33: 00:00 (two) Medical tablet 29 :00 times Center daily. apixaban 2-0 2022- No 5mg Q.5D Take [address] [facility] (ELIQUIS) 5 -07 03-14 by mouth 2 L [facility] mg Tab 16:33: 00:00 (two) Medical tablet 29 :00 times Center daily. apixaban 2022-0 2022- No 5mg Q.5D Take [address] [facility] (ELIQUIS) 5 9-14 09-14 by mouth 2 L [facility] mg Tab 16:33: 00:00 (two) Medical tablet 29 :00 times Center daily. apixaban 2021- No 5mg Q.5D Take [address] [facility] (ELIQUIS) 5 9-14 09-14 by mouth 2 L [facility] mg Tab 16:33: 00:00 (two) Medical tablet 29 :00 times Center daily. fluticasone Yes 1{puff} Inhale 1 [facility] -salmeterol 9-14 Puff by [facility] (ADVAIR) 11:58: mouth of 500-50 02 every 12 Medicin MCG/DOSE hours. e inhaler fluticasone Yes 1{puff} Inhale 1 [facility] -salmeterol 9-14 Puff by [facility] (ADVAIR) 11:58: mouth of 500-50 02 every 12 Medicin MCG/DOSE hours. e inhaler fluticasone Yes 1{puff} Inhale 1 [facility] -salmeterol 9-14 Puff by [facility] (ADVAIR) 11:58: mouth of 500-50 02 every 12 Medicin MCG/DOSE hours. e inhaler fluticasone Yes 1{puff} Inhale 1 [facility] -salmeterol 9-14 Puff by [facility] (ADVAIR) 11:58: mouth of 500-50 02 every 12 Medicin MCG/DOSE hours. e inhaler hydrocodone Yes [id number] 1{tbl} Take 1 [facility] -acetaminop 9-13 Tablet by Col [facility] hen (NORCO) 00:00: mouth of 5-325 mg 00 every 4 Medicin tablet hours as e needed for Pain. amphetamine Yes [id number] 1{tbl} Take 1 [facility] -dextroamph 9-13 Tablet by Col lege etamine 00:00: mouth of (ADDERALL, 00 daily. In Medi mari 15MG,) 15 the e MG tablet morning amphetamine Yes [id number] 1{tbl} Take 1 [facility] -dextroamph 9-13 Tablet by Col [facility]ge etamine 00:00: mouth of (ADDERALL, 00 daily. Medicin 5MG,) 5 MG Take in e tablet afternoon hydrOXYzine 2021-0 Yes [id number] 25mg Take 1 [facility] (ATARAX) 25 9-13 Tablet by Col lege MG tablet 00:00: mouth 3 of 00 times Medicin daily as e needed for Itching. trazodone 2021-0 Yes [id number] 100mg Take 1 [facility] (DESYREL) 9-13 Tablet by Col[facility] ge 100 MG 00:00: mouth of tablet 00 nightly. Medicin e LamoTRIgine 2021-0 Yes [id number] 1{tbl} Take 1 [facility] 300 MG TB24 9-13 Tablet by Col lege 00:00: mouth of 00 daily. Medicin e hydrocodone 2021-0 Yes [id number] 1{tbl} Take 1 [facility] -acetaminop 9-13 Tablet by Col [facility] hen (NORCO) 00:00: mouth of 5-325 mg 00 every 4 Medicin tablet hours as e needed for Pain. amphetamine 2021-0 Yes [id number] 1{tbl} Take 1 [facility] -dextroamph 9-13 Tablet by Col lege etamine 00:00: mouth of (ADDERALL, 00 daily. In Medi mari 15MG,) 15 the e MG tablet morning amphetamine Yes [id number] 1{tbl} Take 1 [facility] -dextroamph 9-13 Tablet by Col [facility]ge etamine 00:00: mouth of (ADDERALL, 00 daily. Medicin 5MG,) 5 MG Take in e tablet afternoon hydrOXYzine 2021-0 Yes [id number] 25mg Take 1 [facility] (ATARAX) 25 9-13 Tablet by Col lege MG tablet 00:00: mouth 3 of 00 times Medicin daily as e needed for Itching. trazodone 2021-0 Yes [id number] 100mg Take 1 [facility] (DESYREL) 9-13 Tablet by [facility] 100 MG 00:00: mouth of tablet 00 nightly. Medicin e LamoTRIgine 2021-0 Yes [id number] 1{tbl} Take 1 [facility] 300 MG TB24 9-13 Tablet by Col lege 00:00: mouth of 00 daily. Medicin e hydrocodone 2022-0 Yes [id number] 1{tbl} Take 1 [facility] -acetaminop 9-13 Tablet by Col [facility]ge hen (NORCO) 00:00: mouth of 5-325 mg 00 every 4 Medicin tablet hours as e needed for Pain. amphetamine Yes [id number] 1{tbl} Take 1 [facility] -dextroamph 9-13 Tablet by Col lege etamine 00:00: mouth of (ADDERALL, 00 daily. In Medi mari 15MG,) 15 the e MG tablet morning amphetamine Yes [id number] 1{tbl} Take 1 [facility] -dextroamph 9-13 Tablet by Col lege etamine 00:00: mouth of (ADDERALL, 00 daily. Medicin 5MG,) 5 MG Take in e tablet afternoon hydrOXYzine Yes [id number] 25mg Take 1 [facility] (ATARAX) 25 9-13 Tablet by Col lege MG tablet 00:00: mouth 3 of 00 times Medicin daily as e needed for Itching. trazodone Yes [id number] 100mg Take 1 [facility] (DESYREL) 9-13 Tablet by Colle ge 100 MG 00:00: mouth of tablet 00 nightly. Medicin e LamoTRIgine Yes [id number] 1{tbl} Take 1 [facility] 300 MG TB24 9-13 Tablet by Col lege 00:00: mouth of 00 daily. Medicin e hydrocodone Yes [id number] 1{tbl} Take 1 [facility] -acetaminop 9-13 Tablet by Col lege hen (NORCO) 00:00: mouth of 5-325 mg 00 every 4 Medicin tablet hours as e needed for Pain. amphetamine Yes [id number] 1{tbl} Take 1 [facility] -dextroamph 9-13 Tablet by Col lege etamine 00:00: mouth of (ADDERALL, 00 daily. In Medi mari 15MG,) 15 the e MG tablet morning amphetamine Yes [id number] 1{tbl} Take 1 [facility] -dextroamph 9-13 Tablet by Col lege etamine 00:00: mouth of (ADDERALL, 00 daily. Medicin 5MG,) 5 MG Take in e tablet afternoon hydrOXYzine 2022-0 Yes [id number] 25mg Take 1 [facility] (ATARAX) 25 9-13 Tablet by Col lege MG tablet 00:00: mouth 3 of 00 times Medicin daily as e needed for Itching. trazodone 2-0 Yes [id number] 100mg Take 1 [facility] (DESYREL) 9-13 Tablet by Colle ge 100 MG 00:00: mouth of tablet 00 nightly. Medicin e LamoTRIgine 2021-0 Yes [id number] 1{tbl} Take 1 [facility] 300 MG TB24 9-13 Tablet by Col lege 00:00: mouth of 00 daily. Medicin e hydrOXYzine 2021-0 Yes [id number] 25mg Take 1 [facility] (ATARAX) 25 9-13 Tablet by Col lege MG tablet 00:00: mouth 3 of 00 times Medicin daily as e needed for Itching. trazodone 2021-0 Yes [id number] 100mg Take 1 [facility] (DESYREL) 9-13 Tablet by Colle ge 100 MG 00:00: mouth of tablet 00 nightly. Medicin e LamoTRIgine 2021-0 Yes [id number] 1{tbl} Take 1 [facility] 300 MG TB24 9-13 Tablet by Col lege 00:00: mouth of 00 daily. Medicin e hydrOXYzine 2021-0 Yes [id number] 25mg Take 1 [facility] (ATARAX) 25 9-13 Tablet by Col lege MG tablet 00:00: mouth 3 of 00 times Medicin daily as e needed for Itching. trazodone 2-0 Yes [id number] 100mg Take 1 [facility] (DESYREL) 9-13 Tablet by Colle ge 100 MG 00:00: mouth of tablet 00 nightly. Medicin e LamoTRIgine 2-0 Yes [id number] 1{tbl} Take 1 [facility] 300 MG TB24 9-13 Tablet by Col lege 00:00: mouth of 00 daily. Medicin e hydrOXYzine 2-0 Yes [id number] 25mg Take 1 [facility] (ATARAX) 25 9-13 Tablet by Col lege MG tablet 00:00: mouth 3 of 00 times Medicin daily as e needed for Itching. trazodone 2022-0 Yes [id number] 100mg Take 1 [facility] (DESYREL) 9-13 Tablet by Colle ge 100 MG 00:00: mouth of tablet 00 nightly. Medicin e LamoTRIgine 2021-0 Yes [id number] 1{tbl} Take 1 [facility] 300 MG TB24 9-13 Tablet by Col lege 00:00: mouth of 00 daily. Medicin e hydrOXYzine 2021-0 Yes [id number] 25mg Take 1 [facility] (ATARAX) 25 9-13 Tablet by Col lege MG tablet 00:00: mouth 3 of 00 times Medicin daily as e needed for Itching. trazodone Yes [id number] 100mg Take 1 [facility] (DESYREL) 9-13 Tablet by Colle ge 100 MG 00:00: mouth of tablet 00 nightly. Medicin e LamoTRIgine Yes [id number] 1{tbl} Take 1 [facility] 300 MG TB24 9-13 Tablet by Col lege 00:00: mouth of 00 daily. Medicin e hydrocodone 2021- No [id number] 1{tbl} Take 1 [facility] -acetaminop 9-13 10-13 Tablet by Co sally hen (hint) 00:00: 00:00 mouth of 5-325 mg 00 :00 every 4 Medicin tablet hours as e needed for Pain. amphetamine 2021- No [id number] 1{tbl} Take 1 [facility] -dextroamph 9-13 10-13 Tablet by Co llege etamine 00:00: 00:00 mouth of (ADDERALL, 00 :00 daily. In Medi mari 15MG,) 15 the e MG tablet morning amphetamine 2021- No [id number] 1{tbl} Take 1 [facility] -dextroamph 9-13 10-13 [...] (four) per tablet hours as needed. HYDROcodone 2021-2021- No 1{tbl} Take [address] -acetaminop 9-13 24 tablet by Jaskaran aguilar (NORCO 00:00: 00:00 mouth Medic al 5-325) 00 :00 every 4 Center 5-325 mg (four) per tablet hours as needed. HYDROcodone 2021-2021- No 1{tbl} Take [address] -acetaminop 9-13 03-17 tablet by Jaskaran aguilar (NORCO 00:00: 00:00 mouth Medic al 5-325) 00 :00 every 4 Center 5-325 mg (four) per tablet hours as needed. HYDROcodone 2021-2021- No 1{tbl} Take [address] [...] MG tablet 00:00: mouth Medical 00 daily. [place] folic acid 0 Yes 1000ug QD Take 1,[address] [facility] (FOLVITE) 1 9-11 mcg by [facility] tablet 00:00: mouth Medical 00 daily. [place] folic acid 2021-0 Yes 1000ug QD Take 1,[address] [facility] (FOLVITE) 1 9-11 mcg by [facility] MG tablet 00:00: mouth Medical 00 daily. [place] folic acid 2021-0 Yes 1000ug QD Take 1,[address] [facility] (FOLVITE) 1 9-11 mcg by [facility] MG tablet 00:00: mouth Medical 00 daily. [place] folic acid 2021-0 Yes 1000ug QD Take 1,[address] [facility] (FOLVITE) 1 9-11 mcg by [facility] MG tablet 00:00: mouth Medical 00 daily. Center baclofen 2021- No 10mg Q.[id number] Take [address] [facility] (LIORESAL) 03-04 [id number] by mouth 3 [facility] 10 MG 00:00: 00:00 3D (three) Medical tablet 00 :00 times Center daily. baclofen 2021-2021- No 10mg Q.[id number] Take [address] [facility] (LIORESAL) 03-04 [id number] by mouth 3 [facility] 10 MG 00:00: 00:00 3D (three) Medical tablet 00 :00 times Center daily. baclofen 2021-2021- No 10mg Q.[id number] Take [address] [facility] (LIORESAL) 03-04 [id number] by mouth 3 [facility] 10 MG 00:00: 00:00 3D (three) Medical tablet 00 :00 times Center daily. baclofen 2021-2021- No 10mg Q.[id number] Take [address] [facility] (LIORESAL) 03-04 [id number] by mouth 3 [facility] 10 MG 00:00: 00:00 3D (three) Medical tablet 00 :00 times Center daily. baclofen 2021-2021- No 10mg Q.[id number] Take [address] [facility] (LIORESAL) 03-04 [id number] by mouth 3 [facility] 10 MG 00:00: [...] days. predniSONE 2021-2021- No Take by [facility] (DELTASONE) 03-01 mouth as Ady es 10 MG 00:00: 23:59 directed Medical tablet 00 :00 Take 20 mg Center by mouth for 5 days and then take 10mg by mouth for 5 days. Medication , dose, and frequency confirmed and verified with the patient.. predniSONE 2021-0 2021- No Take by [facility] St (DELTASONE) 03-01 mouth as Ady es 10 MG 00:00: 23:59 directed Medical tablet 00 :00 Take 20 mg Center by mouth for 5 days and then take 10mg by mouth for 5 days. Medication , dose, and frequency confirmed and verified with the patient.. predniSONE 2021-0 2021- No Take by [facility] St (DELTASONE) 03-01 mouth as Ady es 10 MG 00:00: 23:59 directed Medical tablet 00 :00 Take 20 mg Center by mouth for 5 days and then take 10mg by mouth for 5 days. Medication , dose, and frequency confirmed and verified with the patient.. predniSONE 2021-2021- No Take by [facility] (DELTASONE) 03-01 mouth as Ady es 10 MG 00:00: :59 directed Medical tablet 00 :00 Take 20 mg Center by mouth for 5 days and then take 10mg by mouth for 5 days. Medication , dose, and frequency confirmed and verified with the patient.. predniSONE 2021-0 2021- No Take by [facility] (DELTASONE) 03-01 mouth as Ady es 10 MG 00:00: 23:59 directed Medical tablet 00 :00 Take 20 mg Center by mouth for 5 days and then take 10mg by mouth for 5 days. Medication , dose, and frequency confirmed and verified with the patient.. methylPREDN 2-0 Yes Take as [facility] ISolone 4 02-27 prescribed Deangelo ege MG TBPK 00:00: of 00 Medicin e methylPREDN 2022-0 Yes Take as [facility] ISolone 4 02-27 prescribed Deangelo ege MG TBPK 00:00: of 00 Medicin e methylPREDN 2022-0 Yes Take as [facility] ISolone 4 - prescribed Deangelo ege MG TBPK 00:00: of 00 Medicin e methylPREDN 2022-0 Yes Take as [facility] ISolone 4 02-27 prescribed Deangelo ege MG TBPK 00:00: of 00 Medicin e methylPREDN 2022-0 Yes Take as [facility] ISolone 4 9-06 prescribed Deangelo ege MG TBPK 00:00: of Medicin e methylPREDN 2021-0 Yes Take as [facility] ISolone 4 9-06 prescribed Deangelo ege MG TBPK 00:00: of Medicin e methylPREDN 2021-0 Yes Take as [facility] ISolone 4 9-06 prescribed Deangelo ege MG TBPK 00:00: Medicin e methylPREDN 2021-0 Yes Take as [facility] ISolone 4 9-06 prescribed Deangelo ege MG TBPK 00:00: of 00 Medicin e fluticasone 0 Yes 1{puff} Inhale 1 [facility] -salmeterol 8-31 Puff by Oralia sy (ADVAIR) 11:54: mouth of 500-50 34 every 12 Medicin MCG/DOSE hours. e inhaler cyclobenzap 0 Yes [facility] 5 mg 8-27 ity of tablet 00:00: [address] cyclobenzap 0 Yes Univer [facility] rine 5 mg 8-27 ity of tablet 00:00: [place] [address] [facility] cyclobenzap 2021-0 Yes Un[facility] rine 5 mg 8-27 ity of tablet 00:00: [place] [address] [facility] cyclobenzap 2021-0 Yes Un[facility] rine 5 mg 8-27 ity of tablet 00:00: [place] [address] [facility] cyclobenzap 2021-0 Yes Un[facility] rine 5 mg 8-27 ity of tablet 00:00: [place] [address] [facility] cyclobenzap 2021-0 Yes Un[facility] rine 5 mg 8-27 ity of tablet 00:00: [place] [address] [facility] cyclobenzap 2021-0 Yes Un[facility] rine 5 mg 8-27 ity of tablet 00:00: [place] [address] [facility] cyclobenzap 2021-0 Yes Un[facility] rine 5 mg 8-27 ity of tablet 00:00: [place] [address] [facility] cyclobenzap 2021-0 Yes Un[facility] rine 5 mg 8-27 ity of tablet 00:00: [place] [address] [facility] cyclobenzap 2021-0 Yes Un[facility]ine 5 mg 8-27 ity of tablet 00:00: [place] [address] [facility] cyclobenzap 2021-0 Yes Un[facility] s rine 5 mg 8-27 ity of tablet 00:00: [place] [facility] cyclobenzap 2021-0 Yes Univer s rine 5 mg 8-27 ity of tablet 00:00: [place] [facility] cyclobenzap 2021-0 Yes Univer s rine 5 mg 8-27 ity of tablet 00:00: [place] [facility] cyclobenzap 2021-0 Yes Un[facility] rine 5 mg 8-27 ity of tablet 00:00: [place] [facility] cyclobenzap 2021-0 Yes Univer s rine 5 mg 8-27 ity of tablet 00:00: [place] [address] [facility] cyclobenzap 2021-0 Yes Un[facility] rine 5 mg 8-27 ity of tablet 00:00: [place] [facility] cyclobenzap 2021-0 Yes Un[facility] rine 5 mg 8-27 ity of tablet 00:00: [place] [address] [facility] cyclobenzap 2021-0 Yes Un[facility] rine 5 mg 8-27 ity of tablet 00:00: [place] [facility] cyclobenzap 2021-0 Yes Un[facility] rine 5 mg 8-27 ity of tablet 00:00: [place] [address] [facility] cyclobenzap 2021-0 Yes [facility]ine 5 mg 8-27 ity of tablet 00:00: [place] [address] [facility] cyclobenzap 2021-0 Yes Un[facility] rine 5 mg 8-27 ity of tablet 00:00: [place] [address] [facility] cyclobenzap 2021-0 Yes [facility]ine 5 mg 8-27 ity of tablet 00:00: [place] [facility] cyclobenzap 2021-0 Yes Un[facility] rine 5 mg 8-27 ity of tablet 00:00: [place] [facility] cyclobenzap 2021-0 Yes [facility] rine 5 mg 8-27 ity of tablet 00:00: [place] [address] [facility] cyclobenzap 2021-0 Yes Un[facility] rine 5 mg 8-27 ity of tablet 00:00: [place] [facility] cyclobenzap 2021-0 Yes Un[facility] rine 5 mg 8-27 ity of tablet 00:00: [place] [facility] cyclobenzap 2021-0 Yes Un[facility] rine 5 mg 8-27 ity of tablet 00:00: [place] [facility] cyclobenzap 2021-0 Yes Un[facility] rine 5 mg 02-17 ity of tablet 00:00: [place] 00 [facility] cyclobenzap 2021-0 Yes [facility] rine 8-27 [place] ([facility]) 00:00: of 5 MG tablet 00 Medicin e cyclobenzap 2021-0 Yes [facility] rine 827 [facility]) 00:00: of 5 MG tablet 00 Medicin e cyclobenzap 2021-0 Yes [facility] rine 827 [facility]) 00:00: of 5 MG tablet 00 Medicin e cyclobenzap 2021-0 Yes [facility] 8 [place] ([facility]) 00:00: of 5 MG tablet 00 Medicin e cyclobenzap 2021-0 Yes [facility] rine 8 [place] ([facility]) 00:00: of 5 MG tablet 00 Medicin e cyclobenzap 2021-0 Yes [facility]) 00:00: of 5 MG tablet 00 Medicin e cyclobenzap 2021-[address] [facility] 8 [place] ([facility]) 00:00: of 5 MG tablet 00 Medicin e cyclobenzap 2021-0 Yes [facility]27 [place] ([facility]) 00:00: of 5 MG tablet 00 Medicin e methylPREDN 0 2021- No Take as [facility] ISolone 4 02-16 prescribed Col lege MG TBPK 00:00: 00:00 of 00 :00 Medicin e midodrine 2021-0 Yes 2.5 mg po [facility] (PROAMATINE 02-12 qam and at Co llege ) 2.5 MG 00:00: noon x 1 of tablet 00 week Medicin followed e by 5 mg po qam and q noon from then on. Patient clarified that she had an adverse reaction to Aprodine and not an allergic reaction. fluconazole 2021-0 Yes 100mg Take 1 [facility] (DIFLUCAN) 8- Tablet by Deangelo ege 100 MG 00:00: mouth of tablet 00 daily. Medicin e nystatin 2021-0 Yes [id number] Take 1 mL [facility] (MYCOSTATIN 8-22 by mouth Deangelo ege ) [id number] 00:00: four times of UNIT/ML 00 daily. Medicin suspension e midodrine 2022-0 Yes 2.5 mg po [facility] (PROAMATINE 8-22 qam and at Co llege ) 2.5 MG 00:00: noon x 1 of tablet 00 week Medicin followed e by 5 mg po qam and q noon from then on. Patient clarified that she had an adverse reaction to Aprodine and not an allergic reaction. fluconazole 2022-0 Yes 100mg Take 1 [facility] (DIFLUCAN) 8-22 Tablet by Deangelo ege 100 MG 00:00: mouth of tablet 00 daily. Medicin e nystatin 2022-0 Yes [id number] Take 1 mL [facility] (MYCOSTATIN 8-22 by mouth Deangelo ege ) [id number] 00:00: four times of UNIT/ML 00 daily. Medicin suspension e midodrine 2022-0 Yes 2.5 mg po [facility] (PROAMATINE 8-22 qam and at Co llege ) 2.5 MG 00:00: noon x 1 of tablet 00 week Medicin followed e by 5 mg po qam and q noon from then on. Patient clarified that she had an adverse reaction to Aprodine and not an allergic reaction. fluconazole 2022-0 Yes 100mg Take 1 [facility] (DIFLUCAN) 8-22 Tablet by Deangelo ege 100 MG 00:00: mouth of tablet 00 daily. Medicin e nystatin 2022-0 Yes [id number] Take 1 mL [facility] (MYCOSTATIN 8-22 by mouth Deangelo ege ) [id number] 00:00: four times of UNIT/ML 00 daily. Medicin suspension e midodrine 2022-0 Yes 2.5 mg po [facility] (PROAMATINE 8-22 qam and at Co [facility]lege ) 2.5 MG 00:00: noon x 1 of tablet 00 week Medicin followed e by 5 mg po qam and q noon from then on. Patient clarified that she had an adverse reaction to Aprodine and not an allergic reaction. fluconazole 2022-0 Yes 100mg Take 1 [facility] (DIFLUCAN) 8-22 Tablet by Deangelo ege 100 MG 00:00: mouth of tablet 00 daily. Medicin e nystatin 2022-0 Yes [id number] Take 1 mL [facility] (MYCOSTATIN 8-22 by mouth Deangelo ege ) [id number] 00:00: four times of UNIT/ML 00 daily. Medicin suspension e midodrine 2-0 Yes 2.5 mg po [facility] (PROAMATINE 8-22 qam and at Co llege ) 2.5 MG 00:00: noon x 1 of tablet 00 week Medicin followed e by 5 mg po qam and q noon from then on. Patient clarified that she had an adverse reaction to Aprodine and not an allergic reaction. fluconazole 2-0 Yes 100mg Take 1 [facility] (DIFLUCAN) 8-22 Tablet by Deangelo ege 100 MG 00:00: mouth of tablet 00 daily. Medicin e nystatin 2-0 Yes [id number] Take 1 mL [facility] (MYCOSTATIN 8-22 by mouth Deangelo ege ) [id number] 00:00: four times of UNIT/ML 00 daily. Medicin suspension e midodrine 2-0 Yes 2.5 mg po [facility] (PROAMATINE 8-22 qam and at Co llege ) 2.5 MG 00:00: noon x 1 of tablet 00 week Medicin followed e by 5 mg po qam and q noon from then on. Patient clarified that she had an adverse reaction to Aprodine and not an allergic reaction. nystatin 2022-0 Yes [id number] Take 1 mL [facility] (MYCOSTATIN 8-22 by mouth Deangelo ege ) [id number] 00:00: four times of UNIT/ML 00 daily. Medicin suspension e midodrine 2-0 Yes 2.5 mg po [facility] (PROAMATINE 8-22 qam and at Co llege ) 2.5 MG 00:00: noon x 1 of tablet 00 week Medicin followed e by 5 mg po qam and q noon from then on. Patient clarified that she had an adverse reaction to Aprodine and not an allergic reaction. nystatin 2022-0 Yes [id number] Take 1 mL [facility] (MYCOSTATIN 8-22 by mouth Deangelo ege ) [id number] 00:00: four times of UNIT/ML 00 daily. Medicin suspension e midodrine 2-0 Yes 2.5 mg po [facility] (PROAMATINE 8-22 qam and at Co [facility]lege ) 2.5 MG 00:00: noon x 1 of tablet 00 week Medicin followed e by 5 mg po qam and q noon from then on. Patient clarified that she had an adverse reaction to Aprodine and not an allergic reaction. nystatin 2021-0 Yes [id number] Take 1 mL [facility] (MYCOSTATIN 8-22 by mouth Deangelo ege ) [id number] 00:00: four times of UNIT/ML 00 daily. Medicin suspension e midodrine 2021-0 Yes 2.5 mg po [facility] (PROAMATINE 8-22 qam and at Co [facility]lege ) 2.5 MG 00:00: noon x 1 of tablet 00 week Medicin followed e by 5 mg po qam and q noon from then on. Patient clarified that she had an adverse reaction to Aprodine and not an allergic reaction. nystatin 2021-0 Yes [id number] Take 1 mL [facility] (MYCOSTATIN 8-22 by mouth Deangelo ege ) [id number] 00:00: four times of UNIT/ML 00 daily. [...] MG tablet 00:00: daily. Medica l 00 [place] metoprolol 2021-0 Yes 25mg Q.5D Take [address] tartrate 8-21 by mouth 2 [facility] (LOPRESSOR) 00:00: (two) Medic al 25 MG 00 times Center tablet daily. leflunomide 0 Yes 10mg QD Take [address] [facility] (ARAVA) 10 8-21 by mouth [facility] MG tablet 00:00: daily. Medica l 00 [place] baclofen 10 0 Yes 10mg Take 10 mg [facility] mg tablet 8-18 by mouth. ity o f 00:00: [facility] baclofen 10 0 Yes 10mg Take 10 mg [facility] mg tablet 8-18 by mouth. ity o f 00:00: [facility] baclofen 10 0 Yes 10mg Take 10 mg [facility] mg tablet 8-18 by mouth. ity o f 00:00: [facility] baclofen 10 0 Yes 10mg Take 10 mg [facility] mg tablet 8-18 by mouth. ity o f 00:00: [facility] baclofen 10 0 Yes 10mg Take 10 mg [facility] mg tablet 8-18 by mouth. ity o f 00:00: [facility] baclofen 10 0 Yes 10mg Take 10 mg [facility] mg tablet 8-18 by mouth. ity o f 00:00: [facility] baclofen 10 0 Yes 10mg Take 10 mg [facility] mg tablet 8-18 by mouth. ity o f 00:00: [facility] baclofen 10 0 Yes 10mg Take 10 mg [facility] mg tablet 8-18 by mouth. ity o f 00:00: [facility] baclofen 10 0 Yes 10mg Take 10 mg [facility] mg tablet 8-18 by mouth. ity o f 00:00: [facility] baclofen 10 2021-0 Yes 10mg Take 10 mg [facility] mg tablet 8-18 by mouth. ity o f 00:00: [facility] baclofen 10 0 Yes 10mg Take 10 mg [facility] mg tablet 8-18 by mouth. ity o f 00:00: [facility] baclofen 10 2021-0 Yes 10mg Take 10 mg [facility] mg tablet 8-18 by mouth. ity o f 00:00: [facility] baclofen 10 2021-0 Yes 10mg Take 10 mg [facility] mg tablet 8-18 by mouth. ity o f 00:00: [facility] baclofen 10 2021-0 Yes 10mg Take 10 mg [facility] mg tablet 8-18 by mouth. ity o f 00:00: [facility] baclofen 10 2021-0 Yes 10mg Take 10 mg [facility] mg tablet 8-18 by mouth. ity o f 00:00: [facility] baclofen 10 2021-0 Yes 10mg Take 10 mg [facility] mg tablet 8-18 by mouth. ity o f 00:00: [facility] baclofen 10 2021-0 Yes 10mg Take 10 mg [facility] mg tablet 8-18 by mouth. ity o f 00:00: [facility] baclofen 10 2021-0 Yes 10mg Take 10 mg [facility] mg tablet 8-18 by mouth. ity o f 00:00: [facility] baclofen 10 2021-0 Yes 10mg Take 10 mg [facility] mg tablet 8-18 by mouth. ity o f 00:00: [facility] baclofen 10 2021-0 Yes 10mg Take 10 mg [facility] mg tablet 8-18 by mouth. ity o f 00:00: [facility] baclofen 10 2021-0 Yes 10mg Take 10 mg [facility] mg tablet 8-18 by mouth. ity o f 00:00: [facility] baclofen 10 2021-0 Yes 10mg Take 10 mg [facility] mg tablet 8-18 by mouth. ity o f 00:00: [facility] baclofen 10 2021-0 Yes 10mg Take 10 mg [facility] mg tablet 8-18 by mouth. ity o f 00:00: [facility] baclofen 10 2021-0 Yes 10mg Take 10 mg Univers mg tablet 8-18 by mouth. ity o f 00:00: [facility] baclofen 10 2021-0 Yes 10mg Take 10 mg Univers mg tablet 8-18 by mouth. ity o f 00:00: [facility] baclofen 10 2021-0 Yes 10mg Take 10 mg [facility] mg tablet 8-18 by mouth. ity o f 00:00: [facility] baclofen 10 2021-0 Yes 10mg Take 10 mg [facility] mg tablet 8-18 by mouth. ity o f 00:00: [address] baclofen 10 2021-0 Yes 10mg Take 10 mg [facility] mg tablet 8-18 by mouth. ity o f 00:00: [address] baclofen 2-0 Yes [id number] 10mg Take 1 [facility] (LIORESAL) 8-18 Tablet by Deangelo ege 10 MG 00:00: mouth 3 of tablet 00 times Medicin daily as e needed for Pain. baclofen 2021-0 Yes [id number] 10mg Take 1 [facility] (LIORESAL) 8-18 Tablet by Deangelo ege 10 MG 00:00: mouth 3 of tablet 00 times Medicin daily as e needed for Pain. Fosfomycin 2021-0 Yes [facility] Tromethamin 8-18 College e 3 g PACK 00:00: of 00 Medicin e baclofen 2021-0 Yes [id number] 10mg Take 1 [facility] (LIORESAL) 8-18 Tablet by Deangelo ege 10 MG 00:00: mouth 3 of tablet 00 times Medicin daily as e needed for Pain. Fosfomycin 2021-0 Yes [facility] Tromethamin 8-18 College e 3 g PACK 00:00: of 00 Medicin e baclofen 2021-0 Yes [id number] 10mg Take 1 [facility] (LIORESAL) 8-18 Tablet by Deangelo ege 10 MG 00:00: mouth 3 of tablet 00 times Medicin daily as e needed for Pain. Fosfomycin 2021-0 Yes [facility] Tromethamin 8-18 College e 3 g PACK 00:00: 00 Medicin e baclofen 2021-0 Yes [id number] 10mg Take 1 [facility] (LIORESAL) 8-18 Tablet by Deangelo ege 10 MG 00:00: mouth 3 of tablet 00 times Medicin daily as e needed for Pain. Fosfomycin 2021-0 Yes [facility] Tromethamin 8-18 College e 3 g PACK 00:00: 00 Medicin e baclofen 2021-0 2022- No [id number] 10mg Take 1 [facility] (LIORESAL) 8-18 10-14 Tablet by Col lege 10 MG 00:00: 00:00 mouth 3 of tablet 00 :00 times Medicin daily as e needed for Pain. Fosfomycin 2021- No [facility] Tromethamin 8-18 10-13 College e 3 g PACK 00:00: 00:00 of 00 :00 Medicin e amphetamine Yes [id number] 1{tbl} Take 1 [facility] -dextroamph 8-16 Tablet by Col lege etamine 00:00: mouth of (ADDERALL, 00 daily. In Medi mari 15MG,) 15 the e MG tablet morning amphetamine Yes [id number] 1{tbl} Take 1 [facility] -dextroamph 8-16 Tablet by Col lege etamine 00:00: mouth of (ADDERALL, 00 daily. Medicin 5MG,) 5 MG Take in e tablet afternoon amphetamine 2021- No [id number] 1{tbl} Take 1 [facility] -dextroamph 816 03-06 Tablet by Co llege etamine 00:00: 00:00 mouth of (ADDERALL, 00 :00 daily. In Medi mari 15MG,) 15 the e MG tablet morning amphetamine 2021- No [id number] 1{tbl} Take 1 [facility] -dextroamph 8-16 03-06 Tablet by Co llege etamine 00:00: 00:00 mouth of (ADDERALL, 00 :00 daily. Medicin 5MG,) 5 MG Take in e tablet afternoon penicillin Yes [facility] v potassium 8-15 College (VEETID) 00:00: of 500 MG 00 Medicin tablet e penicillin Yes [facility] v potassium 8-15 College (VEETID) 00:00: of 500 MG 00 Medicin tablet e penicillin Yes [facility] v potassium 8-15 College (VEETID) 00:00: of 500 MG 00 Medicin tablet e penicillin Yes [facility] v potassium 8-15 College (VEETID) 00:00: of 500 MG 00 Medicin tablet e penicillin 2021- No [facility] v potassium 8-15 10-13 College (VEETID) 00:00: 00:00 of 500 MG 00 :00 Medicin tablet e fluticasone Yes 1{puff} Inhale 1 [facility] -salmeterol 803 Puff by [facility] (ADVAIR) 11:13: mouth of 500-50 01 every 12 Medicin MCG/DOSE hours. e inhaler fluticasone 2-0 Yes 1{puff} Inhale 1 [facility] -salmeterol 01-24 Puff by [facility] (ADVAIR) 11:13: mouth of 500-50 01 every 12 Medicin MCG/DOSE hours. e inhaler pyridostigm 2-0 Yes 1/2 tablet [facility] ine 01-22 pot tid x [place] ([place]) 00:00: 1 week of 60 MG 00 then 60 mg Medicin tablet po bid for e 1 week then 60 mg tid metronidazo 2022-0 Yes [facility] le (FLAGYL) 01-22 [place] 500 MG 00:00: of tablet 00 Medicin e metronidazo 2-0 Yes [facility] lamberto (FLAGYL) 01-22 [place] 500 MG 00:00: of tablet 00 Medicin e metronidazo 2-0 Yes [facility] lamberto (FLAGYL) 01-22 [place] 500 MG 00:00: of tablet 00 Medicin e metronidazo 2022-0 Yes [facility] lamberto (FLAGYL) 01-22 [place] 500 MG 00:00: of tablet 00 Medicin e metronidazo 2-0 Yes [facility] lamberto (FLAGYL) 01-22 [place] 500 MG 00:00: of tablet 00 Medicin e pyridostigm 2-0 Yes 1/2 tablet [facility] ine 01-22 pot tid x [place] (MESTINON) 00:00: 1 week of 60 MG 00 then 60 mg Medicin tablet po bid for e 1 week then 60 mg tid pyridostigm 2022-0 Yes 1/2 tablet [facility] ine 01-22 pot tid x [place] (MESTINON) 00:00: 1 week of 60 MG 00 then 60 mg Medicin tablet po bid for e 1 week then 60 mg tid metronidazo 2022-0 Yes [facility]al le (FLAGYL) 01-22 [place] 500 MG 00:00: of tablet 00 Medicin e pyridostigm 2022-0 Yes 1/2 tablet [facility] ine 01-22 pot tid x [place] (MESTINON) 00:00: 1 week of 60 MG 00 then 60 mg Medicin tablet po bid for e 1 week then 60 mg tid metronidazo 2022-0 2022- No Melissa orantes (FLAGYL) 01-22 [facility] 500 MG 00:00: 00:00 of tablet 00 :00 Medicin e pyridostigm 2021- No 1/2 tablet [facility] ine 01-22 pot tid x [facility] (MESTINON) 00:00: 00:00 1 week of 60 MG 00 :00 then 60 mg Medicin tablet po bid for e 1 week then 60 mg tid metronidazo 0 2021- No 500mg Take 500 [facility] lamberto (FLAGYL) 01-22 mg by [facility] 500 MG 00:00: 04:59 mouth. of tablet 00 :00 Medicin e LIALDA 1.2 0 Yes [facility] 7-30 [place] 00:00: of 00 Medicin e LIALDA 1.2 2021-0 Yes [facility] 730 [place] 00:00: of 00 Medicin e LIALDA 1.2 2021-0 Yes [facility] 730 [place] 00:00: of 00 Medicin e LIALDA 1.2 2021-0 Yes [facility] 7-30 [place] 00:00: of 00 Medicin e LIALDA 1.2 2021-0 Yes [facility] 7-30 [place] 00:00: of 00 Medicin e LIALDA 1.2 2021-0 Yes [facility] 7-30 [place] 00:00: of 00 Medicin e LIALDA 1.2 2021-0 Yes [facility] 7-30 [place] 00:00: of 00 Medicin e LIALDA 1.2 2021-0 Yes [facility] 7-30 [place] 00:00: of 00 Medicin e LIALDA 1.2 2021-0 Yes [facility] 7-30 [place] 00:00: of 00 Medicin e LIALDA 1.2 2021-0 Yes [facility] 7-30 [place] 00:00: of 00 Medicin e metoprolol 2021-0 Yes [id number] 25mg Take 1 [facility] (LOPRESSOR) 7-27 Tablet by [facility] 25 MG 00:00: mouth two of tablet 00 times Medicin daily. e metoprolol Yes [id number] 25mg Take 1 [facility] (LOPRESSOR) 7-27 Tablet by Col [facility]ge 25 MG 00:00: mouth two of tablet 00 times Medicin daily. e metoprolol 2021-0 Yes [id number] 25mg Take 1 [facility] (LOPRESSOR) 7-27 Tablet by Col [facility]ge 25 MG 00:00: mouth two of tablet 00 times Medicin daily. e metoprolol 2021-0 Yes [id number] 25mg Take 1 [facility] (LOPRESSOR) 7-27 Tablet by [facility]ge 25 MG 00:00: mouth two of tablet 00 times Medicin daily. e metoprolol 2021-0 Yes [id number] 25mg Take 1 [facility] (LOPRESSOR) 7-27 Tablet by [facility]ge 25 MG 00:00: mouth two of tablet 00 times Medicin daily. e metoprolol 2021-0 Yes [id number] 25mg Take 1 [facility] (LOPRESSOR) 7-27 Tablet by [facility] 25 MG 00:00: mouth two of tablet 00 times Medicin daily. e metoprolol 2021-0 Yes [id number] 25mg Take 1 [facility] (LOPRESSOR) 7-27 Tablet by [facility] 25 MG 00:00: mouth two of tablet 00 times Medicin daily. e metoprolol 2021-0 Yes [id number] 25mg Take 1 [facility] (LOPRESSOR) 7-27 Tablet by [facility] 25 MG 00:00: mouth two of tablet 00 times Medicin daily. e metoprolol 2021-0 Yes [id number] 25mg Take 1 [facility] (LOPRESSOR) 7-27 Tablet by [facility]ge 25 MG 00:00: mouth two of tablet 00 times Medicin daily. e metoprolol 2021-0 Yes [id number] 25mg Take 1 [facility] (LOPRESSOR) 7-27 Tablet by Col [facility]ge 25 MG 00:00: mouth two of tablet 00 times Medicin daily. e metoprolol 2021-0 Yes [id number] 25mg Take 1 [facility] (LOPRESSOR) 7-27 Tablet by Col [facility] 25 MG 00:00: mouth two of tablet 00 times Medicin daily. e metoprolol 2-0 Yes [id number] 25mg Take 1 [facility] (LOPRESSOR) 7-27 Tablet by Col [facility] 25 MG 00:00: mouth two of tablet 00 times Medicin daily. e triamcinolo 2022-0 Yes [facility]26 topically. [place] (ARISTOCORT 00:00: of ) 0.5 % 00 Medicin cream e triamcinolo 2022-[address] [facility] 7-26 [place] (ARISTOCORT 00:00: of ) 0.5 % 00 Medicin cream e triamcinolo 2022-0 Yes Apply [facility] topically. [place] (ARISTOCORT 00:00: of ) 0.5 % 00 Medicin cream e triamcinolo 2022-[address] [facility] 7-26 [place] (ARISTOCORT 00:00: of ) 0.5 % 00 Medicin cream e triamcinolo 2-0 Yes Apply [facility] 7-26 topically. [place] (ARISTOCORT 00:00: of ) 0.5 % 00 Medicin cream e triamcinolo 2022-[address] [facility] 7-26 [place] (ARISTOCORT 00:00: of ) 0.5 % 00 Medicin cream e triamcinolo 2022-0 Yes Apply [facility]-26 topically. [place] (ARISTOCORT 00:00: of ) 0.5 % 00 Medicin cream e triamcinolo 2022-[address] [facility] 7-26 [place] (ARISTOCORT 00:00: of ) 0.5 % 00 Medicin cream e triamcinolo 2022-0 Yes Apply [facility] 7-26 topically. [place] (ARISTOCORT 00:00: of ) 0.5 % 00 Medicin cream e triamcinolo 2022-[address] [facility] 7-26 [place] (ARISTOCORT 00:00: of ) 0.5 % 00 Medicin cream e triamcinolo 2022-0 Yes Apply [facility] 7-26 topically. [place] (ARISTOCORT 00:00: of ) 0.5 % 00 Medicin cream e triamcinolo 2022-[address] [facility] 7-26 [place] (ARISTOCORT 00:00: of ) 0.5 % 00 Medicin cream e triamcinolo 2022-0 Yes Apply [facility]26 topically. [place] (ARISTOCORT 00:00: of ) 0.5 % 00 Medicin cream e triamcinolo 2022-[address] [facility] 7- [place] (ARISTOCORT 00:00: of ) 0.5 % 00 Medicin cream e triamcinolo 2-0 Yes Apply [facility] 7- topically. [place] (ARISTOCORT 00:00: of ) 0.5 % 00 Medicin cream e triamcinolo 2022-[address] [facility] 7- [place] (ARISTOCORT 00:00: of ) 0.5 % 00 Medicin cream e triamcinolo 2-0 Yes Apply [facility] 7- topically. [place] (ARISTOCORT 00:00: of ) 0.5 % 00 Medicin cream e triamcinolo 2022-[address] [facility] 01-16 [place] (ARISTOCORT 00:00: of ) 0.5 % 00 Medicin cream e Baclofen 2-[id number] 10 [facility] 7-26 mg [place] 00:00: vaginally of 00 2 times Medicin daily as e needed. Please compound as vaginal suppositor y Baclofen 2-[id number] 10 [facility] 7-26 mg [place] 00:00: vaginally of 00 2 times Medicin daily as e needed. Please compound as vaginal suppositor y triamcinolo 2022-0 Yes Apply [facility] 7- topically. [place] (ARISTOCORT 00:00: of ) 0.5 % 00 Medicin cream e triamcinolo 2022-[address] [facility] 01-16 [place] (ARISTOCORT 00:00: of ) 0.5 % 00 Medicin cream e Baclofen 2-[id number] 10 [facility] 7-26 mg [place] 00:00: vaginally of 00 2 times Medicin daily as e needed. Please compound as vaginal suppositor y mupirocin 2022-0 Yes [id number] Apply to [facility] (BACTROBAN) 01-13 affected [place] 2 % 00:00: area 2 x a of ointment 00 day Medicin e mupirocin 2-0 Yes [id number] Apply to [facility] (BACTROBAN) 01-13 affected [place] [facility] 2 % 00:00: area 2 x a of ointment 00 day Medicin e mupirocin 2022-0 Yes [id number] Apply to [facility] (BACTROBAN) 01-13 affected [place] [facility] 2 % 00:00: area 2 x a of ointment 00 day Medicin e mupirocin 2022-0 Yes [id number] Apply to [facility] (BACTROBAN) 01-13 affected [place] [facility] 2 % 00:00: area 2 x a of ointment 00 day Medicin e mupirocin 2022-0 Yes [id number] Apply to [facility] (BACTROBAN) 01-13 affected [place] [facility] 2 % 00:00: area 2 x a of ointment 00 day Medicin e mupirocin 2022-0 Yes [id number] Apply to [facility] (BACTROBAN) 01-13 affected [place] [facility] 2 % 00:00: area 2 x a of ointment 00 day Medicin e mupirocin 2022-0 Yes [id number] Apply to [facility] (BACTROBAN) 01-13 affected [place] [facility] 2 % 00:00: area 2 x a of ointment 00 day Medicin e mupirocin 2022-0 Yes [id number] Apply to [facility] (BACTROBAN) 01-13 affected [place] [facility] 2 % 00:00: area 2 x a of ointment 00 day Medicin e mupirocin 2022-0 Yes [id number] Apply to [facility] (BACTROBAN) 01-13 affected [place] [facility] 2 % 00:00: area 2 x a of ointment 00 day Medicin e mupirocin 2022-0 Yes [id number] Apply to [facility] (BACTROBAN) 01-13 affected [place] [facility] 2 % 00:00: area 2 x a of ointment 00 day Medicin e mupirocin 2022-0 Yes [id number] Apply to [facility] (BACTROBAN) 01-13 affected [place] [facility] 2 % 00:00: area 2 x a of ointment 00 day Medicin e mupirocin 2022-0 Yes [id number] Apply to [facility] (BACTROBAN) 01-13 affected [place] [facility] 2 % 00:00: area 2 x a of ointment 00 day Medicin e albuterol 2022-0 Yes INHALE ONE Un marko [...] WHEEZING albuterol 0 Yes INHALE ONE Un mrako 90 7-19 TO TWO ity of mcg/actuati 00:00: PUFFS [place] inhaler 00 MOUTH Medical EVERY 6 [place] HOURS NEEDED FOR WHEEZING Hydrocortis Yes 1{appli Apply 1 [facility] one, 01-09 cation} applicatio [facility] Perianal, 00:00: n of (ANUSOL-HC) 00 topically Med icin 2.5 % CREA two times e daily. Albuterol Yes [id number] INHALE ONE [facility] Sulfate 7-19 6 TO TWO [facility] (PROAIR 00:00: PUFFS BY of HFA) 108 00 MOUTH Medicin (90 Base) EVERY 6 e MCG/ACT HOURS AERS NEEDED FOR WHEEZING meclizine 2021-0 Yes [id number] 25mg Take 1 [facility] (ANTIVERT) 7-19 Tablet by [place] [facility] 25 MG 00:00: mouth 3 of tablet 00 times Medicin daily as e needed for Dizziness. LamoTRIgine 2021-0 Yes [id number] 1{tbl} Take 1 [facility] 300 MG TB24 7-19 Tablet by Col lege 00:00: mouth of 00 daily. Medicin e hydrocortis 2021-0 Yes [facility] one 2.5 % 7-19 [facility] cream 00:00: of 00 Medicin e Hydrocortis 2021-0 Yes 1{appli Apply 1 [facility] one, 7-19 cation} applicatio [facility] Perianal, 00:00: n of (ANUSOL-HC) 00 topically Med icin 2.5 % CREA two times e daily. Albuterol 2021-0 Yes [id number] INHALE ONE [facility] Sulfate 7-19 6 TO TWO [facility] (PROAIR 00:00: PUFFS BY of HFA) 108 00 MOUTH Medicin (90 Base) EVERY 6 e MCG/ACT HOURS AERS NEEDED FOR WHEEZING meclizine 2021-0 Yes [id number] 25mg Take 1 [facility] (ANTIVERT) 7-19 Tablet by [place] [facility] 25 MG 00:00: mouth 3 of tablet 00 times Medicin daily as e needed for Dizziness. hydrocortis 2021-0 Yes [facility] one 2.5 % 7-19 College cream 00:00: of 00 Medicin e Hydrocortis 2021-0 Yes 1{appli Apply 1 [facility] one, 7-19 cation} applicatio [facility] Perianal, 00:00: n of (ANUSOL-HC) 00 topically Med icin 2.5 % CREA two times e daily. Albuterol 2021-0 Yes [id number] INHALE ONE [facility] Sulfate 7-19 6 TO TWO [facility] (PROAIR 00:00: PUFFS BY of HFA) 108 00 MOUTH Medicin (90 Base) EVERY 6 e MCG/ACT HOURS AERS NEEDED FOR WHEEZING meclizine 2021-0 Yes [id number] 25mg Take 1 [facility] (ANTIVERT) 7-19 Tablet by [place] 25 MG 00:00: mouth 3 of tablet 00 times Medicin daily as e needed for Dizziness. hydrocortis 2021-0 Yes [facility] one 2.5 % 7-19 College cream 00:00: of 00 Medicin e Hydrocortis 2021-0 Yes 1{appli Apply 1 [facility] one, 7-19 cation} applicatio [facility] Perianal, 00:00: n of (ANUSOL-HC) 00 topically Med icin 2.5 % CREA two times e daily. Albuterol 0 Yes [id number] INHALE ONE [facility] Sulfate 7-19 6 TO TWO [facility] (PROAIR 00:00: PUFFS BY of HFA) 108 00 MOUTH Medicin (90 Base) EVERY 6 e MCG/ACT HOURS AERS NEEDED FOR WHEEZING meclizine 2021-0 Yes [id number] 25mg Take 1 [facility] (ANTIVERT) 7-19 Tablet by [place] 25 MG 00:00: mouth 3 of tablet 00 times Medicin daily as e needed for Dizziness. hydrocortis 0 Yes [facility] one 2.5 % 7-19 [facility] cream 00:00: of 00 Medicin e Hydrocortis 0 Yes 1{appli Apply 1 [facility] one, 7-19 cation} applicatio [facility] Perianal, 00:00: n of (ANUSOL-HC) 00 topically Med icin 2.5 % CREA two times e daily. Albuterol 2021-0 Yes [id number] INHALE ONE [facility] Sulfate 7-19 6 TO TWO [facility] (PROAIR 00:00: PUFFS BY of HFA) 108 00 MOUTH Medicin (90 Base) EVERY 6 e MCG/ACT HOURS AERS NEEDED FOR WHEEZING meclizine 2021-0 Yes [id number] 25mg Take 1 [facility] (ANTIVERT) 7-19 Tablet by [place] 25 MG 00:00: mouth 3 of tablet 00 times Medicin daily as e needed for Dizziness. hydrocortis 2021-0 Yes [facility] one 2.5 % 7-19 College cream 00:00: of 00 Medicin e Hydrocortis 2021-0 Yes 1{appli Apply 1 [facility] one, 7-19 cation} applicatio [facility] Per[facility], 00:00: n of (ANUSOL-HC) 00 topically Med icin 2.5 % CREA two times e daily. Albuterol 2021-0 Yes [id number] INHALE ONE [facility] Sulfate 7-19 6 TO TWO [facility] (PROAIR 00:00: PUFFS BY of HFA) 108 00 MOUTH Medicin (90 Base) EVERY 6 e MCG/ACT HOURS AERS NEEDED FOR WHEEZING meclizine 2021-0 Yes [id number] 25mg Take 1 [facility] (ANTIVERT) 7-19 Tablet by [place] [facility] 25 MG 00:00: mouth 3 of tablet 00 times Medicin daily as e needed for Dizziness. hydrocortis 2021-0 Yes [facility] one 2.5 % 7-19 College cream 00:00: of 00 Medicin e Hydrocortis 2021-0 Yes 1{appli Apply 1 [facility] one, 7-19 cation} applicatio [facility] Perian[facility], 00:00: n of (ANUSOL-HC) 00 topically Med icin 2.5 % CREA two times e daily. Albuterol 2021-0 Yes [id number] INHALE ONE [facility] Sulfate 7-19 6 TO TWO [facility] (PROAIR 00:00: PUFFS BY of HFA) 108 00 MOUTH Medicin (90 Base) EVERY 6 e MCG/ACT HOURS AERS NEEDED FOR WHEEZING meclizine 2021-0 Yes [id number] 25mg Take 1 [facility] (ANTIVERT) 7-19 [...] two times e daily. Albuterol 2021-0 Yes [id number] INHALE ONE [facility] Sulfate 7-19 6 TO TWO [facility] (PROAIR 00:00: PUFFS BY of HFA) 108 00 MOUTH Medicin (90 Base) EVERY 6 e MCG/ACT HOURS AERS NEEDED FOR WHEEZING meclizine 2021-0 Yes [id number] 25mg Take 1 [facility] (ANTIVERT) 7-19 Tablet by [place] [facility] 25 MG 00:00: mouth 3 of tablet 00 times Medicin daily as e needed for Dizziness. hydrocortis 2021-0 Yes [facility] one 2.5 % 7-19 College cream 00:00: of 00 Medicin e Hydrocortis 0 Yes 1{appli Apply 1 [facility] one, 7-19 cation} applicatio [facility] Per[facility], 00:00: n of (ANUSOL-HC) 00 topically Med icin 2.5 % CREA two times e daily. Albuterol 0 Yes [id number] INHALE ONE [facility] Sulfate 7-19 6 TO TWO [facility] (PROAIR 00:00: PUFFS BY of HFA) 108 00 MOUTH Medicin (90 Base) EVERY 6 e MCG/ACT HOURS AERS NEEDED FOR WHEEZING meclizine 0 Yes [id number] 25mg Take 1 [facility] (ANTIVERT) 7-19 Tablet by [place] [facility] 25 MG 00:00: mouth 3 of tablet 00 times Medicin daily as e needed for Dizziness. hydrocortis 2021-0 Yes [facility] one 2.5 % 7-19 College cream 00:00: of 00 Medicin e Hydrocortis 0 Yes 1{appli Apply 1 [facility] one, 7-19 cation} applicatio [facility] Perian[facility], 00:00: n of (ANUSOL-HC) 00 topically Med icin 2.5 % CREA two times e daily. Albuterol 2021-0 Yes [id number] INHALE ONE [facility] Sulfate 7-19 6 TO TWO [facility] (PROAIR 00:00: PUFFS BY of HFA) 108 00 MOUTH Medicin (90 Base) EVERY 6 e MCG/ACT HOURS AERS NEEDED FOR WHEEZING meclizine 2021-0 Yes [id number] 25mg Take 1 [facility] (ANTIVERT) 7-19 Tablet by [place] [facility] 25 MG 00:00: mouth 3 of tablet 00 times Medicin daily as e needed for Dizziness. LamoTRIgine 2021-0 Yes [id number] 1{tbl} Take 1 [facility] 300 MG TB24 7-19 Tablet by Col lege 00:00: mouth of 00 daily. Medicin e amphetamine 2021-0 Yes [id number] 1{tbl} Take 1 [facility] -dextroamph 7-19 Tablet by Col lege etamine 00:00: mouth of (ADDERALL, 00 daily. Medicin 15MG,) 15 e MG tablet Hydrocortis 2021-0 Yes 1{appli Apply 1 [facility] one, 7-19 cation} applicatio [facility] Perian[facility], 00:00: n of (ANUSOL-HC) 00 topically Med icin 2.5 % CREA two times e daily. Albuterol 2021-0 Yes [id number] INHALE ONE [facility] Sulfate 7-19 6 TO TWO [facility] (PROAIR 00:00: PUFFS BY of HFA) 108 00 MOUTH Medicin (90 Base) EVERY 6 e MCG/ACT HOURS AERS NEEDED FOR WHEEZING meclizine 2021-0 Yes [id number] 25mg Take 1 [facility] (ANTIVERT) 7-19 Tablet by [place] [facility] 25 MG 00:00: mouth 3 of tablet 00 times Medicin daily as e needed for Dizziness. LamoTRIgine 2021-0 Yes [id number] 1{tbl} Take 1 [facility] 300 MG TB24 7-19 Tablet by Col lege 00:00: mouth of 00 daily. Medicin e amphetamine 2021-0 Yes [id number] 1{tbl} Take 1 [facility] -dextroamph 7-19 Tablet by Col lege etamine 00:00: mouth of (ADDERALL, 00 daily. Medicin 15MG,) 15 e MG tablet hydrocortis 2021-0 Yes [facility] one 2.5 % 7-19 College cream 00:00: of 00 Medicin e Hydrocortis 2021-0 Yes 1{appli Apply 1 [facility] one, 7-19 cation} applicatio [facility] Perianal, 00:00: n of (ANUSOL-HC) 00 topically Med icin 2.5 % CREA two times e daily. Albuterol 2021-0 Yes [id number] INHALE ONE [facility] Sulfate 7-19 6 TO TWO [facility] (PROAIR 00:00: PUFFS BY of HFA) 108 00 MOUTH Medicin (90 Base) EVERY 6 e MCG/ACT HOURS AERS NEEDED FOR WHEEZING meclizine Yes [id number] 25mg Take 1 [facility] (ANTIVERT) 7-19 Tablet by [place] e[place] 25 MG 00:00: mouth 3 of tablet 00 times Medicin daily as e needed for Dizziness. LamoTRIgine Yes [id number] 1{tbl} Take 1 [facility] 300 MG TB24 7-19 Tablet by Col lege 00:00: mouth of 00 daily. Medicin e amphetamine Yes [id number] 1{tbl} Take 1 [facility] -dextroamph 7-19 Tablet by Col lege etamine 00:00: mouth of (ADDERALL, 00 daily. Medicin 15MG,) 15 e MG tablet LamoTRIgine 2021- No [id number] 1{tbl} Take 1 [facility] 300 MG TB24 7-19 09-13 Tablet by Co llege 00:00: 00:00 mouth of 00 :00 daily. Medicin e fluticasone Yes [id number] 2{spray 2 Sprays [facility] (FLONASE) 7-14 } by Each [place] 50 MCG/ACT 00:00: Nostril of nasal spray 00 route two Med icin times e daily. fluticasone Yes [id number] 2{spray 2 Sprays [facility] (FLONASE) 7-14 } by Each [place] 50 MCG/ACT 00:00: Nostril of nasal spray 00 route two Med icin times e daily. fluticasone Yes [id number] 2{spray 2 Sprays [facility] (FLONASE) 7-14 } by Each [place] 50 MCG/ACT 00:00: Nostril of nasal spray 00 route two Med icin times e daily. fluticasone Yes [id number] 2{spray 2 Sprays [facility] (FLONASE) 7-14 } by Each [place] 50 MCG/ACT 00:00: Nostril of nasal spray 00 route two Med icin times e daily. fluticasone Yes [id number] 2{spray 2 Sprays [facility] (FLONASE) 7-14 } by Each [place] 50 MCG/ACT 00:00: Nostril of nasal spray 00 route two Med icin times e daily. fluticasone Yes [id number] 2{spray 2 Sprays [facility] (FLONASE) 7-14 } by Each [place] 50 MCG/ACT 00:00: Nostril of nasal spray 00 route two Med icin times e daily. fluticasone Yes [id number] 2{spray 2 Sprays [facility] (FLONASE) 7-14 } by Each [place] 50 MCG/ACT 00:00: Nostril of nasal spray 00 route two Med icin times e daily. fluticasone Yes [id number] 2{spray 2 Sprays [facility] (FLONASE) 7-14 } by Each [place] 50 MCG/ACT 00:00: Nostril of nasal spray 00 route two Med icin times e daily. fluticasone Yes [id number] 2{spray 2 Sprays [facility] (FLONASE) 7-14 } by Each [place] 50 MCG/ACT 00:00: Nostril of nasal spray 00 route two Med icin times e daily. fluticasone Yes [id number] 2{spray 2 Sprays [facility] (FLONASE) 7-14 } by Each [place] 50 MCG/ACT 00:00: Nostril of nasal spray 00 route two Med icin times e daily. fluticasone Yes [id number] 2{spray 2 Sprays [facility] (FLONASE) 7-14 } by Each [place] 50 MCG/ACT 00:00: Nostril of nasal spray 00 route two Med icin times e daily. fluticasone Yes [id number] 2{spray 2 Sprays [facility] (FLONASE) 7-14 } by Each [place] 50 MCG/ACT 00:00: Nostril of nasal spray 00 route two Med icin times e daily. fluconazole 0 Yes [id number] Take 1 [facility] (DIFLUCAN) 12-28 tablet [place] 150 MG 00:00: every 72 of tablet 00 hours for Medicin three e doses, followed by maintenanc e fluconazol e therapy once per week for six months. fluconazole Yes [id number] Take 1 [facility] (DIFLUCAN) 7- tablet [place] 150 MG 00:00: every 72 of tablet 00 hours for Medicin three e doses, followed by maintenanc e fluconazol e therapy once per week for six months. fluconazole 2022-0 Yes [id number] Take 1 [facility] (DIFLUCAN) 7-07 tablet [facility] 150 MG 00:00: every 72 of tablet 00 hours for Medicin three e doses, followed by maintenanc e fluconazol e therapy once per week for six months. fluticasone 2-0 Yes 1{puff} Inhale 1 [facility] -salmeterol 7-05 Puff by Oralia sy [...] Medicin e fluticasone Yes 1{puff} Inhale 1 [facility] -salmeterol 6-02 Puff by Colle ge (ADVAIR) 13:13: mouth of 500-50 10 every 12 Medicin MCG/DOSE hours. e inhaler propranolol Yes [id number] 20mg Take 1 [facility] (INDERAL) 6-02 Tablet by Colle ge 20 MG 00:00: mouth 3 of tablet 00 times Medicin daily. e fluconazole Yes [id number] Take one [facility] (DIFLUCAN) 11-21 tab po [facility] 150 MG 00:00: now. And of tablet 00 one more Medicin tab po e after antibiotic course. For vaginal yeast infection vancomycin 2021- No [id number] 125mg Take 1 [facility] (VANCOCIN) 5-31 06-08 capsule by Co llege 125 MG 00:00: 04:59 mouth 3 of capsule 00 :00 times Medicin daily for e 7 days. For urine infection trazodone Yes [id number] 100mg Take 1 [facility] (DESYREL) 5-18 Tablet by Colle ge 100 MG 00:00: mouth of tablet 00 nightly. Medicin e LamoTRIgine 0 Yes [id number] 1{tbl} Take 1 [facility] (LAMICTAL 5-18 Tablet by Colle ge XR) 250 MG 00:00: mouth of TB24 00 daily. Medicin e amphetamine 2022-0 Yes [id number] 1{tbl} Take 1 [facility] -dextroamph 5-18 Tablet by Col lege etamine 00:00: mouth of (ADDERALL, 00 daily. Medicin 5MG,) 5 MG e tablet trazodone 2021-0 Yes [id number] 100mg Take 1 [facility] (DESYREL) 5-18 Tablet by Colle ge 100 MG 00:00: mouth of tablet 00 nightly. Medicin e trazodone 2021-0 Yes [id number] 100mg Take 1 [facility] (DESYREL) 5-18 Tablet by Colle ge 100 MG 00:00: mouth of tablet 00 nightly. Medicin e trazodone 2021-0 Yes [id number] 100mg Take 1 [facility] (DESYREL) 5-18 Tablet by Colle ge 100 MG 00:00: mouth of tablet 00 nightly. Medicin e trazodone 2021-0 Yes [id number] 100mg Take 1 [facility] (DESYREL) 5-18 Tablet by Colle ge 100 MG 00:00: mouth of tablet 00 nightly. Medicin e trazodone 2021-0 2- No [id number] 100mg Take 1 [facility] [facility] (DESYREL) 5-18 09-13 Tablet by Deangelo ege 100 MG 00:00: 00:00 mouth of tablet 00 :00 nightly. Medicin e Dexlansopra 2021-0 Yes Take 60mg B aylor zole 60 MG 5-13 PO daily Colle ge CPDR 00:00: of 00 Medicin e hydrOXYzine 2021-0 Yes [id number] 25mg Take 1 [facility] (ATARAX) 25 5-12 Tablet by Col lege MG tablet 00:00: mouth 3 of 00 times Medicin daily as e needed for Itching. Dexlansopra 2021-0 Yes 60mg Take 60 mg Mikal zole 5-12 by mouth [place] (DEXILANT) 00:00: daily. of 60 MG CPDR 00 Medicin e triamcinolo 2021-0 Yes [id number] Apply to [facility] 5-12 [facility] (KENALOG) 00:00: lesions 2 of 0.1 % cream 00 times Medicin daily e hydrOXYzine 2021-0 Yes [id number] 25mg Take 1 [facility] (ATARAX) 25 5-12 Tablet by Col lege MG tablet 00:00: mouth 3 of 00 times Medicin daily as e needed for Itching. hydrOXYzine 2021-0 Yes [id number] 25mg Take 1 [facility] (ATARAX) 25 5-12 Tablet by Col lege MG tablet 00:00: mouth 3 of 00 times Medicin daily as e needed for Itching. hydrOXYzine 2021-0 Yes [id number] 25mg Take 1 [facility] (ATARAX) 25 5-12 Tablet by Col lege MG tablet 00:00: mouth 3 of 00 times Medicin daily as e needed for Itching. hydrOXYzine 2021-0 Yes [id number] 25mg Take 1 [facility] (ATARAX) 25 5-12 Tablet by Col lege MG tablet 00:00: mouth 3 of 00 times Medicin daily as e needed for Itching. hydrOXYzine 2021-0 2022- No [id number] 25mg Take 1 [facility] (ATARAX) 25 5-12 09-13 Tablet by Co llege MG tablet 00:00: 00:00 mouth 3 of 00 :00 times Medicin daily as e needed for Itching. Spacer/Aero 2021-0 Yes [id number] Or any [facility] 4-13 other [facility] 00:00: covered of (BREATHERIT 00 spacer Medici n E DEANGELO compatible e SPACER with pt's ADULT) MISC inhalers. Spacer/Aero 2021-0 Yes [id number] Or any [facility] 4-13 other [facility] 00:00: covered of (BREATHERIT 00 spacer Medici n E DEANGELO compatible e SPACER with pt's ADULT) MISC inhalers. Spacer/Aero 2021-0 Yes [id number] Or any [facility] 4-13 other [facility] 00:00: covered of (BREATHERIT 00 spacer Medici n E DEANGELO compatible e SPACER with pt's ADULT) MISC inhalers. Spacer/Aero 2021-0 Yes [id number] Or any [facility] 4-13 other [facility] 00:00: covered of (BREATHERIT 00 spacer Medici n E DEANGELO compatible e SPACER with pt's ADULT) MISC inhalers. Spacer/Aero 2021-0 Yes [id number] Or any [facility] 4-13 [facility] 00:00: covered of (BREATHERIT 00 spacer Medici n E DEANGELO compatible e SPACER with pt's ADULT) MISC inhalers. Spacer/Aero 2021-0 Yes [id number] Or any [place] [address] other [facility] 00:00: covered of (BREATHERIT 00 spacer Medici n E DEANGELO compatible e SPACER with pt's ADULT) MISC inhalers. Spacer/Aero 2021-0 Yes [id number] Or any [facility] [address] 00:00: covered of (BREATHERIT 00 spacer Medici n E DEANGELO compatible e SPACER with pt's ADULT) MISC inhalers. Spacer/Aero 2021-0 Yes [id number] Or any [facility] [address] 00:00: covered of (BREATHERIT 00 spacer Medici n E DEANGELO compatible e SPACER with pt's ADULT) MISC inhalers. Spacer/Aero 2021-0 Yes [id number] Or any [facility] [address] 00:00: covered of (BREATHERIT 00 spacer Medici n E DEANGELO compatible e SPACER with pt's ADULT) MISC inhalers. Spacer/Aero 2021-0 Yes [id number] Or any [facility] [address] 00:00: covered of (BREATHERIT 00 spacer Medici n E DEANGELO compatible e SPACER with pt's ADULT) MISC inhalers. Spacer/Aero 2021-0 Yes [id number] Or any [address] 00:00: covered of (BREATHERIT 00 spacer Medici n E DEANGELO compatible e SPACER with pt's ADULT) MISC inhalers. Spacer/Aero 2021-0 Yes [id number] Or any [facility] [address] [place] [address] 00:00: covered of (BREATHERIT 00 spacer Medici n E DEANGELO compatible e SPACER with pt's ADULT) MISC inhalers. Spacer/Aero 2021-0 Yes [id number] Or any [address] 00:00: covered of (BREATHERIT 00 spacer [...] 6 (six) hours for 7 days. ondansetron Yes [id number] 8mg Take 1 [facility] (ZOFRAN-ODT 4-11 Tablet by Col lege ) 8 mg 00:00: mouth of disintegrat 00 every 8 Medic in ing tablet hours as e needed for Nausea. ondansetron 0 Yes [id number] 8mg Take 1 [facility] (ZOFRAN-ODT 4-11 Tablet by Col lege ) 8 mg 00:00: mouth of disintegrat 00 every 8 Medic in ing tablet hours as e needed for Nausea. ondansetron 0 Yes [id number] 8mg Take 1 [facility] (ZOFRAN-ODT 4-11 Tablet by Col lege ) 8 mg 00:00: mouth of disintegrat 00 every 8 Medic in ing tablet hours as e needed for Nausea. ondansetron 0 Yes [id number] 8mg Take 1 [facility] (ZOFRAN-ODT 4-11 Tablet by Col lege ) 8 mg 00:00: mouth of disintegrat 00 every 8 Medic in ing tablet hours as e needed for Nausea. ondansetron 2021-0 Yes [id number] 8mg Take 1 [facility] (ZOFRAN-ODT 4-11 Tablet by Col lege ) 8 mg 00:00: mouth of disintegrat 00 every 8 Medic in ing tablet hours as e needed for Nausea. ondansetron 2021-0 Yes [id number] 8mg Take 1 [facility] (ZOFRAN-ODT 4-11 Tablet by Col lege ) 8 mg 00:00: mouth of disintegrat 00 every 8 Medic in ing tablet hours as e needed for Nausea. ondansetron 0 Yes [id number] 8mg Take 1 [facility] (ZOFRAN-ODT 4-11 Tablet by Col lege ) 8 mg 00:00: mouth of disintegrat 00 every 8 Medic in ing tablet hours as e needed for Nausea. ondansetron 0 Yes [id number] 8mg Take 1 [facility] (ZOFRAN-ODT 4-11 Tablet by Col lege ) 8 mg 00:00: mouth of disintegrat 00 every 8 Medic in ing tablet hours as e needed for Nausea. ondansetron 0 Yes [id number] 8mg Take 1 [facility] (ZOFRAN-ODT 4-11 Tablet by Col lege ) 8 mg 00:00: mouth of disintegrat 00 every 8 Medic in ing tablet hours as e needed for Nausea. ondansetron 0 Yes [id number] 8mg Take 1 [facility] (ZOFRAN-ODT 4-11 Tablet by Col lege ) 8 mg 00:00: mouth of disintegrat 00 every 8 Medic in ing tablet hours as e needed for Nausea. ondansetron 0 Yes [id number] 8mg Take 1 [facility] (ZOFRAN-ODT 4-11 Tablet by Col lege ) 8 mg 00:00: mouth of disintegrat 00 every 8 Medic in ing tablet hours as e needed for Nausea. ondansetron 0 Yes [id number] 8mg Take 1 [facility] (ZOFRAN-ODT 4-11 Tablet by Col lege ) 8 mg 00:00: mouth of disintegrat 00 every 8 Medic in ing tablet hours as e needed for Nausea. ondansetron 0 Yes [id number] 8mg Take 1 [facility] (ZOFRAN-ODT 4-11 Tablet by Col lege ) 8 mg 00:00: mouth of disintegrat 00 every 8 Medic in ing tablet hours as e needed for Nausea. gabapentin 0 Yes 800mg Take 1 [facility] or (NEURONTIN) [...] gabapentin 2022-0 2022- No 800mg Take 1 [facility] (NEURONTIN) 4-07 10-13 Tablet by Co llege 800 MG 00:00: 00:00 mouth 3 of tablet 00 :00 times Medicin daily. e gabapentin 2022-0 2022- No 1{tbl} Take 1 Un marko 800 mg 4-07 10-11 tablet by ity of tablet 00:00: 00:00 mouth in [place] 00 :00 the Medical morning Branch and 1 tablet at noon and 1 tablet in the evening. gabapentin 2022-0 2022- No 1{tbl} Take 1 Un marko 800 mg 4-07 10-11 tablet by ity of tablet 00:00: 00:00 mouth in [place] 00 :00 the Medical morning Branch and 1 tablet at noon and 1 tablet in the evening. fluticasone 2022-0 Yes 1{puff} Inhale 1 [facility] -salmeterol 3-18 Puff by Oralia sy (ADVAIR 14:16: mouth of DISKUS) 42 every 12 Medicin 500-50 hours. e MCG/DOSE inhaler trazodone 2022-0 Yes 100mg Take 100 [facility] (DESYREL) 3-18 mg by Din[place]iddie 100 MG 13:44: mouth of tablet 26 nightly. Medicin e lamotrigine 2022-0 Yes 100mg Take 100 B ayl[facility] (LAMICTAL) 3-18 mg by Din[place]iddie 25 MG 13:44: mouth. of tablet 26 Medicin e azelastine- 2022-0 Yes SPRAY ONE U nivers fluticasone 3-17 SPRAY IN ity of 137-50 00:00: EACH [place] mcg/spray 00 NOSTRIL Medical nasal spray TWICE Branch DAILY NEEDED azelastine- 2022-0 Yes SPRAY ONE U nivers fluticasone 3-17 SPRAY IN ity of 137-50 00:00: EACH [place] mcg/spray 00 NOSTRIL Medical nasal spray TWICE Branch DAILY NEEDED azelastine- 2022-0 Yes SPRAY ONE U nivers fluticasone 3-17 SPRAY IN ity of 137-50 00:00: EACH [place] mcg/spray 00 NOSTRIL Medical nasal spray TWICE Branch DAILY NEEDED azelastine- 2022-0 Yes SPRAY ONE U nivers fluticasone 3-17 SPRAY IN ity of 137-50 00:00: EACH [place] mcg/spray 00 NOSTRIL Medical nasal spray TWICE Branch DAILY NEEDED azelastine- 2022-0 Yes SPRAY ONE U nivers fluticasone 3-17 SPRAY IN ity of 137-50 00:00: EACH [place] mcg/spray 00 NOSTRIL Medical nasal spray TWICE Branch DAILY NEEDED azelastine- 2022-0 Yes SPRAY ONE U nivers fluticasone 3-17 SPRAY IN ity of 137-50 00:00: EACH [place] mcg/spray 00 NOSTRIL Medical nasal spray TWICE [...] SPRAY IN ity of 137-50 00:00: EACH [place] mcg/spray 00 NOSTRIL Medical nasal spray TWICE Branch DAILY NEEDED Azelastine- 2-0 Yes [id number] SPRAY ONE [facility] Fluticasone 3-17 6 SPRAY IN [facility] 00:00: EACH of MCG/ACT 00 NOSTRIL Medicin SUSP TWICE e DAILY NEEDED Azelastine- 2-0 Yes [id number] SPRAY ONE [facility] Fluticasone 3-17 6 SPRAY IN [place] [address] 00:00: EACH of MCG/ACT 00 NOSTRIL Medicin SUSP TWICE e DAILY NEEDED Azelastine- 2-0 Yes [id number] SPRAY ONE [facility] Fluticasone 3-17 6 SPRAY IN [place] [address] 00:00: EACH of MCG/ACT 00 NOSTRIL Medicin SUSP TWICE e DAILY NEEDED Azelastine- 2-0 Yes [id number] SPRAY ONE [facility] Fluticasone 3-17 6 SPRAY IN [place] [address] 00:00: EACH of MCG/ACT 00 NOSTRIL Medicin SUSP TWICE e DAILY NEEDED Azelastine- 2022-0 Yes [id number] SPRAY ONE [facility] Fluticasone 3-17 6 SPRAY IN [place] [address] 00:00: EACH of MCG/ACT 00 NOSTRIL Medicin SUSP TWICE e DAILY NEEDED Azelastine- 2022-0 Yes [id number] SPRAY ONE [facility] Fluticasone 3-17 6 SPRAY IN [facility] 00:00: EACH of MCG/ACT 00 NOSTRIL Medicin SUSP TWICE e DAILY NEEDED Azelastine- 2022-0 Yes [id number] SPRAY ONE [facility] Fluticasone 3-17 6 SPRAY IN [place] [address] 00:00: EACH of MCG/ACT 00 NOSTRIL Medicin SUSP TWICE e DAILY NEEDED Azelastine- 2022-0 Yes [id number] SPRAY ONE Mikal Fluticasone 3-17 6 SPRAY IN [facility] 00:00: EACH of MCG/ACT 00 NOSTRIL Medicin SUSP TWICE e DAILY NEEDED Azelastine- 2021-0 Yes [id number] SPRAY ONE Mikal Fluticasone 3-17 6 SPRAY IN [place] [address] 00:00: EACH of MCG/ACT 00 NOSTRIL Medicin SUSP TWICE e DAILY NEEDED Albuterol 2021-0 Yes [id number] INHALE ONE Mikal Sulfate 3-17 6 TO TWO College (PROAIR 00:00: PUFFS BY of HFA) 108 00 MOUTH Medicin (90 Base) EVERY 6 e MCG/ACT HOURS AERS NEEDED FOR WHEEZING fluconazole 2021-0 Yes [id number] 150mg Take 1 [facility] (DIFLUCAN) 3-17 Tablet by [facility] 150 MG 00:00: mouth of tablet 00 daily. Medicin e Azelastine- 2021-0 Yes [id number] SPRAY ONE Mikal Fluticasone 3-17 6 SPRAY IN [place] [address] 00:00: EACH of MCG/ACT 00 NOSTRIL Medicin SUSP TWICE e DAILY NEEDED Albuterol 2021-0 Yes [id number] INHALE ONE [facility] Sulfate 3-17 6 TO TWO College (PROAIR 00:00: PUFFS BY of HFA) 108 00 MOUTH Medicin (90 Base) EVERY 6 e MCG/ACT HOURS AERS NEEDED FOR WHEEZING Azelastine- 2021-0 Yes [id number] SPRAY ONE [facility] Fluticasone 3-17 6 SPRAY IN [place] [address] 00:00: EACH of MCG/ACT 00 NOSTRIL Medicin SUSP TWICE e DAILY NEEDED Azelastine- 2021-0 Yes [id number] SPRAY ONE [facility] Fluticasone 3-17 6 SPRAY IN [place] [address] 00:00: EACH of MCG/ACT 00 NOSTRIL Medicin SUSP TWICE e DAILY NEEDED Azelastine- 2021-0 Yes [id number] SPRAY ONE [facility] Fluticasone 3-17 6 SPRAY IN [place] [address] 00:00: EACH of MCG/ACT 00 NOSTRIL Medicin SUSP TWICE e DAILY NEEDED Azelastine- 2021-0 2021- No [id number] SPRAY ONE Mikal Fluticasone 3-17 11-08 6 SPRAY IN Col lege 137-50 00:00: 00:00 EACH of MCG/ACT 00 :00 NOSTRIL Medicin SUSP TWICE e DAILY NEEDED benzonatate 2021- No [id number] 100mg Take 1 Mikal (TESSALON 3-17 03-28 capsule by Col lege JO-ANNBRIGID) 100 00:00: 04:59 mouth 3 of mg capsule 00 :00 times Medicin daily as e needed for Cough for up to 10 days. ondansetron 0 Yes [id number] 8mg Take 1 [facility] (ZOFRAN-ODT 3-09 Tablet by Col lege ) 8 mg 00:00: mouth of disintegrat 00 every 8 Medic in ing tablet hours as e needed for Nausea. meclizine Yes [id number] 25mg Take 1 [facility] (ANTIVERT) 3-09 Tablet by Deangelo ege 25 MG 00:00: mouth 3 of tablet 00 times Medicin daily as e needed for Dizziness. meclizine 0 Yes [id number] 25mg Take 1 [facility] (ANTIVERT) 3-09 Tablet by Deangelo ege 25 MG 00:00: mouth 3 of tablet 00 times Medicin daily as e needed for Dizziness. azithromyci 0 Yes [id number] Take as Mikal n 3-07 directed [place] (ZITHROMAX) 00:00: on package of 250 MG 00 labeling. Medicin tablet Two pills e by mouth for the first day and then 1 pill daily until done. propranolol 0 Yes 5 mg bid x [facility] (INDERAL) 3- 5 days College 10 MG 00:00: then 10 mg of tablet 00 bid Medicin e propranolol 2021-0 2021- No 5 mg bid x Mikal (INDERAL) 3- 06-02 5 days College 10 MG 00:00: 00:00 then 10 mg of tablet 00 :00 bid Medicin e Sodium 0 Yes Use as [facility] Sulfate-Mag 2-22 directed Deangelo ege Sulfate-KCl 00:00: of (SUTAB) 00 Medicin [id number] e 8 MG TABS Sodium 2021-0 Yes Use as [facility] Sulfate-Mag 2-22 directed Deangelo ege Sulfate-KCl 00:00: of (SUTAB) 00 Medicin [id number] e 8 MG TABS Dexlansopra 2021-0 Yes 60mg Take 60 mg Mikal zole 2-17 by mouth [place] (DEXILANT) 00:00: daily. of 60 MG CPDR 00 Medicin e trazodone 2021-0 Yes 100mg Take 100 [facility] (DESYREL) 1-04 mg by [place] 100 MG 11:35: mouth of tablet 08 nightly. Medicin e lamotrigine 2021-0 Yes 100mg Take 100 [facility] (LAMICTAL) 1-04 mg by [place] 25 MG 11:35: mouth. of tablet 08 Medicin e trazodone 2021-0 Yes 100mg Take 100 [facility] (DESYREL) 1-04 mg by [place] 100 MG 11:35: mouth of tablet 08 nightly. Medicin e lamotrigine 2021-0 Yes 100mg Take 100 [facility] (LAMICTAL) 1-04 mg by [place] 25 MG 11:35: mouth. of tablet 08 Medicin e fluticasone 2021-0 Yes 1{puff} Inhale 1 [facility] -salmeterol 1-04 Puff by Stand In (ADVAIR 00:00: mouth two of DISKUS) 00 times Medicin 250-50 daily. e MCG/DOSE inhaler fluticasone 2021-0 Yes 1{puff} Inhale 1 [facility] -salmeterol 1-04 Puff by Stand In (ADVAIR 00:00: mouth two of DISKUS) 00 times Medicin 250-50 daily. e MCG/DOSE inhaler fluticasone 2021-0 Yes 1{puff} Inhale 1 [facility] -salmeterol 1-04 Puff by Stand In (ADVAIR 00:00: mouth two of DISKUS) 00 times Medicin 250-50 daily. e MCG/DOSE inhaler fluticasone 2021-0 Yes 1{puff} Inhale 1 [facility] -salmeterol 1-04 Puff by Stand In (ADVAIR 00:00: mouth two of DISKUS) 00 times Medicin 250-50 daily. e MCG/DOSE inhaler azithromyci 2021-0 Yes [id number] Take as [facility] n 1-03 directed [place] (ZITHROMAX) 00:00: on package of 250 MG 00 labeling. Medicin tablet Two pills e by mouth for the first day and then 1 pill daily until done. azithromyci Yes [id number] Take as [facility] n 06-26 [facility] (ZITHROMAX) 00:00: on package of 250 MG 00 labeling. Medicin tablet Two pills e by mouth for the first day and then 1 pill daily until done. predniSONE 2021- No [id number] 40mg Take 2 [facility] (DELTASONE) 06-26 Tablets by Miguel robertson 20 MG 00:00: 05:59 mouth of tablet 00 :00 daily for Medicin 5 days. e predniSONE 2021- No [id number] 40mg Take 2 [facility] (DELTASONE) 06-26 Tablets by Miguel robertson 20 MG 00:00: 05:59 mouth of tablet 00 :00 daily for Medicin 5 days. e methylPREDN 2020-06 Yes [id number] Day 1: 24 [facility] ISolone 4 2-15 mg on day Colle ge MG TBPK 00:00: administer Medicin ed as 8 mg e [...] (1 tablet) before breakfast. methylPREDN 2020-06 Yes [id number] Day 1: 24 [facility] ISolone 4 2-15 mg on [...] breakfast. trazodone 2020-06 Yes 100mg Take 100 [facility] (DESYREL) 1-10 mg by [place] 100 MG 11:29: mouth of tablet 50 [...] daily. e trazodone Yes 100mg Take 100 [facility] (DESYREL) 9-10 mg by [place] 100 MG 13:55: mouth of tablet 36 nightly. Medicin e lamotrigine 2020-0 Yes 100mg Take 100 [facility] (LAMICTAL) 9-10 mg by [place] 25 MG 13:55: mouth. of tablet 36 Medicin e lamotrigine 2020-0 Yes 100mg Take 100 [facility] (LAMICTAL) 9-10 mg by [place] 25 MG 13:55: mouth. of tablet 36 Medicin e trazodone 2020-0 Yes 100mg Take 100 [facility] (DESYREL) 9-10 mg by College 100 MG 13:55: mouth of tablet 36 nightly. Medicin e lamotrigine 2020-0 Yes 100mg Take 100 [facility] (LAMICTAL) 9-10 mg by [place] 25 MG 13:55: mouth. of tablet 36 Medicin e azithromyci 2020-0 Yes [id number] Take as [facility] n 8-24 directed [place] (ZITHROMAX) 00:00: on package of 250 MG 00 labeling. Medicin tablet Two pills e by mouth for the first day and then 1 pill daily until done. Benzocaine- 2020-0 Yes 1U Take 1 [facility] or Menthol 8-24 Units by [facility] (CHLORASEPT 00:00: mouth 3 of IC) 6-10 MG 00 times Medicin LOZG daily as e needed. Benzocaine- 2020-0 Yes 1U Take 1 [facility] or Menthol 8-24 Units by [place] (CHLORASEPT 00:00: mouth 3 of IC) 6-10 MG 00 times Medicin LOZG daily as e needed. Benzocaine- 2020-0 Yes 1U Take 1 [facility] or Menthol 8-24 Units by [place] (CHLORASEPT 00:00: mouth 3 of IC) 6-10 MG 00 times Medicin LOZG daily as e needed. Benzocaine- 2020-0 Yes 1U Take 1 [facility] or Menthol 8-24 Units by [place] (CHLORASEPT 00:00: mouth 3 of IC) 6-10 MG 00 times Medicin LOZG daily as e needed. azithromyci 2020-0 Yes [id number] Take as Mikal n 8-24 directed [place] (ZITHROMAX) 00:00: on package of 250 MG 00 labeling. Medicin tablet Two pills e by mouth for the first day and then 1 pill daily until done. Benzocaine- Yes 1U Take 1 [facility] or Menthol 8-24 Units by [place] (CHLORASEPT 00:00: mouth 3 of IC) 6-10 MG 00 times Medicin LOZG daily as e needed. azithromyci 2020- No [id number] Take as Mikal n 8-24 11-10 directed [place] (ZITHROMAX) 00:00: 00:00 on package of 250 MG 00 :00 labeling. Medicin tablet Two pills e by mouth for the first day and then 1 pill daily until done. Levocetiriz Yes [id number] 1{tbl} Take 1 [facility] ine 8-[address] [facility] 00:00: mouth of ride 5 MG 00 daily. Medicin TABS e Levocetiriz Yes [id number] 1{tbl} Take 1 [facility]al ine 8-[address] [facility] 00:00: mouth of ride 5 MG 00 daily. Medicin TABS e Levocetiriz Yes [id number] 1{tbl} Take 1 [facility] ine 8-[address] [facility] 00:00: mouth of ride 5 MG 00 daily. Medicin TABS e Levocetiriz Yes [id number] 1{tbl} Take 1 [facility] ine 8-[address] [facility] 00:00: mouth of ride 5 MG 00 daily. Medicin TABS e Levocetiriz Yes [id number] 1{tbl} Take 1 [facility] ine 8-[address] [facility] 00:00: mouth of ride 5 MG 00 daily. Medicin TABS e Levocetiriz Yes [id number] 1{tbl} Take 1 [facility] ine 8-[address] [facility] 00:00: mouth of ride 5 MG 00 daily. Medicin TABS e Levocetiriz Yes [id number] 1{tbl} Take 1 [facility] ine 8-[address] [facility] 00:00: mouth of ride 5 MG 00 daily. Medicin TABS e Levocetiriz Yes [id number] 1{tbl} Take 1 [facility] ine 8-[address] [facility] 00:00: mouth of ride 5 MG 00 daily. Medicin TABS e Levocetiriz 2020-0 Yes [id number] 1{tbl} Take 1 [facility] ine 8-[address] [facility] 00:00: mouth of ride 5 MG 00 daily. Medicin TABS e Levocetiriz 2020-0 Yes [id number] 1{tbl} Take 1 [facility] ine 8-[address] [facility] 00:00: mouth of ride 5 MG 00 daily. Medicin TABS e Levocetiriz 2020-0 Yes [id number] 1{tbl} Take 1 [facility] ine 8-[address] [facility] 00:00: mouth of ride 5 MG 00 daily. Medicin TABS e Levocetiriz 2020- Yes [id number] 1{tbl} Take 1 [facility] ine 8-[address] [facility] 00:00: mouth of ride 5 MG 00 daily. Medicin TABS e Levocetiriz 2020-0 Yes [id number] 1{tbl} Take 1 [facility] ine 8-[address] [facility] 00:00: mouth of ride 5 MG 00 daily. Medicin TABS e Levocetiriz 2020-0 Yes [id number] 1{tbl} Take 1 [facility] ine 8-[address] [facility] 00:00: mouth of ride 5 MG 00 daily. Medicin TABS e Levocetiriz 2020-0 Yes [id number] 1{tbl} Take 1 [facility] ine 8-[address] [facility] 00:00: mouth of ride 5 MG 00 daily. Medicin TABS e Levocetiriz 2020-0 Yes [id number] 1{tbl} Take 1 [facility] ine 8-[address] [facility] 00:00: mouth of ride 5 MG 00 daily. Medicin TABS e Levocetiriz 2020-0 Yes [id number] 1{tbl} Take 1 [facility] ine 8-[address] [facility] 00:00: mouth of ride 5 MG 00 daily. Medicin TABS e Levocetiriz 2020-0 Yes [id number] 1{tbl} Take 1 [facility] ine 8-[address] [facility] 00:00: mouth of ride 5 MG 00 daily. Medicin TABS e Levocetiriz 2020-0 Yes [id number] 1{tbl} Take 1 [facility] ine 8-[address] [facility] 00:00: mouth of ride 5 MG 00 daily. Medicin TABS e meclizine 2020-0 Yes [id number] 25mg Take 1 [facility] (ANTIVERT) 7-23 Tablet by Deangelo ege 25 MG 00:00: mouth 3 of tablet 00 times Medicin daily as e needed for Dizziness. ondansetron 2020-0 Yes [id number] 8mg Take 1 [facility] (ZOFRAN-ODT 7-23 Tablet by Col lege ) 8 mg 00:00: mouth of disintegrat 00 every 8 Medic in ing tablet hours as e needed for Nausea. meclizine 0 Yes [id number] 25mg Take 1 [facility] (ANTIVERT) 7-23 Tablet by Deangelo ege 25 MG 00:00: mouth 3 of tablet 00 times Medicin daily as e needed for Dizziness. ondansetron 0 Yes [id number] 8mg Take 1 [facility] (ZOFRAN-ODT 7-23 Tablet by Col lege ) 8 mg 00:00: mouth of disintegrat 00 every 8 Medic in ing tablet hours as e needed for Nausea. meclizine 0 Yes [id number] 25mg Take 1 [facility] (ANTIVERT) 7-23 Tablet by Deangelo ege 25 MG 00:00: mouth 3 of tablet 00 times Medicin daily as e needed for Dizziness. ondansetron 2020-0 Yes [id number] 8mg Take 1 [facility] (ZOFRAN-ODT 7-23 Tablet by Col lege ) 8 mg 00:00: mouth of disintegrat 00 every 8 Medic in ing tablet hours as e needed for Nausea. meclizine 2020-0 Yes [id number] 25mg Take 1 [facility] (ANTIVERT) 7-23 Tablet by Deangelo ege 25 MG 00:00: mouth 3 of tablet 00 times Medicin daily as e needed for Dizziness. ondansetron 2020-0 Yes [id number] 8mg Take 1 [facility] (ZOFRAN-ODT 7-23 Tablet by Col lege ) 8 mg 00:00: mouth of disintegrat 00 every 8 Medic in ing tablet hours as e needed for Nausea. meclizine 2020-0 Yes [id number] 25mg Take 1 [facility] (ANTIVERT) 7-23 Tablet by Deangelo ege 25 MG 00:00: mouth 3 of tablet 00 times Medicin daily as e needed for Dizziness. ondansetron 2020-0 Yes [id number] 8mg Take 1 [facility] (ZOFRAN-ODT 7-23 Tablet by legderick ) 8 mg 00:00: mouth of disintegrat 00 every 8 Medic in ing tablet hours as e needed for Nausea. azithromyci 2020-0 Yes [id number] Take as [facility] 7-15 [facility] (ZITHROMAX) 00:00: on package of 250 MG 00 labeling. Medicin tablet Two pills e by mouth for the first day and then 1 pill daily until done. azithromyci 2020-0 Yes [id number] Take as [facility] 7-15 [facility] (ZITHROMAX) 00:00: on package of 250 MG 00 labeling. Medicin tablet Two pills e by mouth for the first day and then 1 pill daily until done. azithromyci 2020-0 Yes [id number] Take as [facility] n 7-15 [facility] (ZITHROMAX) 00:00: on package of 250 MG 00 labeling. Medicin tablet Two pills e by mouth for the first day and then 1 pill daily until done. azithromyci 2020-0 Yes [id number] Take as [facility] 7-15 [facility] (ZITHROMAX) 00:00: on package of 250 MG 00 labeling. Medicin tablet Two pills e by mouth for the first day and then 1 pill daily until done. azithromyci 2020-0 Yes [id number] Take as [facility] n 7-15 [facility] (ZITHROMAX) 00:00: on package of 250 MG 00 labeling. Medicin tablet Two pills e by mouth for the first day and then 1 pill daily until done. Dexlansopra 2020-0 Yes [id number] 1{tbl} Take 1 [facility] zole 7-13 Tablet by [place] (DEXILANT) 00:00: mouth of 60 MG CPDR 00 daily. Medicin e Dexlansopra 2020-0 Yes [id number] 1{tbl} Take 1 [facility] zole 7-13 Tablet by [place] (DEXILANT) 00:00: mouth of 60 MG CPDR 00 daily. Medicin e Dexlansopra 2020-0 Yes [id number] 1{tbl} Take 1 [facility] zole 7-13 Tablet by [place] (DEXILANT) 00:00: mouth of 60 MG CPDR 00 daily. Medicin e Dexlansopra 2020-0 Yes [id number] 1{tbl} Take 1 [facility] zole 7-13 Tablet by [place] (DEXILANT) 00:00: mouth of 60 MG CPDR 00 daily. Medicin e Dexlansopra 2020-0 Yes [id number] 1{tbl} Take 1 [facility] zole 7-13 Tablet by [place] (DEXILANT) 00:00: mouth of 60 MG CPDR 00 daily. Medicin e guaifenesin Yes [id number] 600mg Take 1 [facility] (MUCINEX) 7-08 6 Tablet by [facility] ge 600 MG SR 00:00: mouth two of tablet 00 times Medicin daily. e Levocetiriz Yes [id number] 1{tbl} Take 1 [facility] ine 7-08 [address] [facility] 00:00: mouth of ride 5 MG 00 daily as Medici n TABS needed. e Azelastine- Yes [id number] 1{spray 1 [place] by [facility] Fluticasone -08 6 } Nasal [place] 137-50 00:00: route 2 of MCG/ACT 00 times Medicin SUSP daily as e needed. albuterol 0 Yes [id number] 90ug Inhale 1-2 [facility] 108 (90 7-08 6 Puffs by [place] [facility]) 00:00: mouth of mcg/act 00 every 6 Medicin inhaler hours as e needed for Wheezing. guaifenesin 0 Yes [id number] 600mg Take 1 [facility] (MUCINEX) 7-08 6 Tablet by [facility] ge 600 MG SR 00:00: mouth two of tablet 00 times Medicin daily. e Levocetiriz 2020-0 Yes [id number] 1{tbl} Take 1 [facility] ine 7-08 6 Tablet by [place] Dihydrochlo 00:00: mouth of ride 5 MG 00 daily as Medici n TABS needed. e Azelastine- Yes [id number] 1{spray 1 [place] by [facility] Fluticasone 08 6 } [place] [address]-50 00:00: route 2 of MCG/ACT 00 times Medicin SUSP daily as e needed. albuterol 2020-0 Yes [id number] 90ug Inhale 1-2 [facility] 108 (90 7-08 6 Puffs by [facility]) 00:00: mouth of mcg/act 00 every 6 Medicin inhaler hours as e needed for Wheezing. guaifenesin 2020-0 Yes [id number] 600mg Take 1 [facility] (MUCINEX) 7-08 6 Tablet by [facility] 600 MG SR 00:00: mouth two of tablet 00 times Medicin daily. e Levocetiriz 0 Yes [id number] 1{tbl} Take 1 [facility] ine 7-08 [address] [facility] 00:00: mouth of ride 5 MG 00 daily as Medici n TABS needed. e Azelastine- Yes [id number] 1{spray 1 [place] by [facility] Fluticasone -08 6 } Nasal [address] 00:00: route 2 of MCG/ACT 00 times Medicin SUSP daily as e needed. albuterol 2020-0 Yes [id number] 90ug Inhale 1-2 [facility] 108 (90 7-08 6 Puffs by [facility]) 00:00: mouth of mcg/act 00 every 6 Medicin inhaler hours as e needed for Wheezing. guaifenesin 2020-0 Yes [id number] 600mg Take 1 [facility] (MUCINEX) 7-08 6 Tablet by Col[facility] 600 MG SR 00:00: mouth two of tablet 00 times Medicin daily. e Levocetiriz 2020-0 Yes [id number] 1{tbl} Take 1 [facility] ine 7-08 [address] [facility] 00:00: mouth of ride 5 MG 00 daily as Medici n TABS needed. e Azelastine- 0 Yes [id number] 1{spray 1 [place] by [facility] Fluticasone -08 6 } Nasal [address] 00:00: route 2 of MCG/ACT 00 times Medicin SUSP daily as e needed. albuterol Yes [id number] 90ug Inhale 1-2 [facility] 108 (90 7-08 6 Puffs by [facility]) 00:00: mouth of mcg/act 00 every 6 Medicin inhaler hours as e needed for Wheezing. Levocetiriz Yes [id number] 1{tbl} Take 1 [facility] ine 7-08 [address] [facility] 00:00: mouth of ride 5 MG 00 daily as Medici n TABS needed. e guaifenesin Yes [id number] 600mg Take 1 [facility] (MUCINEX) 7-[address] [facility] 600 MG SR 00:00: mouth two of tablet 00 times Medicin daily. e Levocetiriz Yes [id number] 1{tbl} Take 1 [facility] ine 7-08 [address] [facility] 00:00: mouth of ride 5 MG 00 daily as Medici n TABS needed. e Azelastine- Yes [id number] 1{spray 1 [place] by [facility] Fluticasone 7-08 6 } Nasal [place] 137-50 00:00: route 2 of MCG/ACT 00 times Medicin SUSP daily as e needed. albuterol Yes [id number] 90ug Inhale 1-2 [facility] 108 (90 7-08 6 Puffs by [facility]) 00:00: mouth of mcg/act 00 every 6 Medicin inhaler hours as e needed for Wheezing. Levocetiriz Yes [id number] 1{tbl} Take 1 [facility] ine 7-08 [address] [facility] 00:00: mouth of ride 5 MG 00 daily as Medici n TABS needed. e Adalimumab 0 Yes [id number] 40mg Inject 40 [facility] 40 MG/0.4ML 6-30 mg into Colle [facility] PNKT 00:00: the skin of 00 every 14 Medicin days. e Adalimumab 2020-0 Yes [id number] 40mg Inject 40 [facility] 40 MG/0.4ML 6-30 mg into Colle ge PNKT 00:00: the skin of 00 every 14 Medicin days. e Adalimumab 2020-0 Yes [id number] 40mg Inject 40 [facility] 40 MG/0.4ML 6-30 mg into Colle ge PNKT 00:00: the skin of 00 every 14 Medicin days. e Adalimumab 2020-0 Yes [id number] 40mg Inject 40 [facility] 40 MG/0.4ML 6-30 mg into Colle ge PNKT 00:00: the skin of 00 every 14 Medicin days. e Adalimumab 2020-0 Yes [id number] 40mg Inject 40 [facility] 40 MG/0.4ML 6-30 mg into Colle ge PNKT 00:00: the skin of 00 every 14 Medicin days. e Adalimumab 2020-0 2022- No [id number] 40mg Inject 40 [facility] 40 MG/0.4ML 6-30 03-18 mg into Deangelo ege PNKT 00:00: 00:00 the skin of 00 :00 every 14 Medicin days. e ondansetron 2020-0 Yes [id number] 8mg Take 1 [facility] (ZOFRAN) 8 6-21 Tablet by Deangelo ege mg tablet 00:00: mouth of 00 every 8 Medicin hours as e needed. ondansetron 0 Yes [id number] 8mg Take 1 [facility] (ZOFRAN) 8 6-21 Tablet by Deangelo ege mg tablet 00:00: mouth of 00 every 8 Medicin hours as e needed. ondansetron 2020-0 Yes [id number] 8mg Take 1 [facility] (ZOFRAN) 8 6-21 Tablet by Deangelo ege mg tablet 00:00: mouth of 00 every 8 Medicin hours as e needed. ondansetron 2020-0 Yes [id number] 8mg Take 1 [facility] (ZOFRAN) 8 6-21 Tablet by Deangelo ege mg tablet 00:00: mouth of 00 every 8 Medicin hours as e needed. ondansetron 2020-0 Yes [id number] 8mg Take 1 [facility] (ZOFRAN) 8 6-21 Tablet by Deangelo ege mg tablet 00:00: mouth of 00 every 8 Medicin hours as e needed. fluticasone 0 Yes 2{spray 2 Sprays [facility] (FLONASE) 6-15 } by [employer] 50 MCG/ACT 00:00: Nostril of nasal spray 00 route two Med icin times e daily. fluticasone Yes 2{spray 2 Sprays [facility] (FLONASE) 6-15 } by Each [place] 50 MCG/ACT 00:00: Nostril of nasal spray 00 route two Med icin times e daily. fluticasone 0 Yes 2{spray 2 Sprays [facility] (FLONASE) 6-15 } by Each [place] 50 MCG/ACT 00:00: Nostril of nasal spray 00 route two Med icin times e daily. fluticasone 0 Yes 2{spray 2 Sprays [facility] (FLONASE) 6-15 } by Each [place] 50 MCG/ACT 00:00: Nostril of nasal spray 00 route two Med icin times e daily. fluticasone 0 Yes 2{spray 2 Sprays [facility] (FLONASE) 6-15 } by Each [place] 50 MCG/ACT 00:00: Nostril of nasal spray 00 route two Med icin times e daily. fluticasone 0 Yes 2{spray 2 Sprays [facility] (FLONASE) 6-15 } by Each [place] 50 MCG/ACT 00:00: Nostril of nasal spray 00 route two Med icin times e daily. fluticasone 2020-0 Yes 2{spray 2 Sprays [facility] (FLONASE) 6-15 } by Each [place] 50 MCG/ACT 00:00: Nostril of nasal spray 00 route two Med icin times e daily. trazodone 0 Yes 100mg Take 100 [facility] (DESYREL) 6-11 mg by [place] 100 MG 11:34: mouth of tablet 44 nightly. Medicin e lamotrigine Yes 100mg Take 100 [facility] (LAMICTAL) 6-11 mg by [place] 25 MG 11:34: mouth. of tablet 44 Medicin e Apixaban 2020-0 Yes [id number] 1{tbl} Take 1 [facility] (ELIQUIS) 5 6-04 Tablet by Col [facility]ge MG TABS 00:00: mouth two of 00 times Medicin daily. e Apixaban 2020-0 Yes [id number] 1{tbl} Take 1 [facility] (ELIQUIS) 5 6-04 Tablet by Col [facility]ge MG TABS 00:00: mouth two of 00 times Medicin daily. e Apixaban 2020-0 Yes [id number] 1{tbl} Take 1 [facility] (ELIQUIS) 5 6-04 Tablet by Col [facility]ge MG TABS 00:00: mouth two of 00 times Medicin daily. e Apixaban 0 Yes [id number] 1{tbl} Take 1 [facility] (ELIQUIS) 5 6-04 Tablet by Col [facility]ge MG TABS 00:00: mouth two of 00 times Medicin daily. e Apixaban 2020-0 Yes [id number] 1{tbl} Take 1 [facility] (ELIQUIS) 5 6-04 Tablet by Col [facility]ge MG TABS 00:00: mouth two of 00 times Medicin daily. e Apixaban Yes [id number] 1{tbl} Take 1 [facility] (ELIQUIS) 5 6-04 Tablet by Col [facility]ge MG TABS 00:00: mouth two of 00 times Medicin daily. e Dexlansopra Yes [id number] 1{tbl} Take 1 [facility] zole 6-02 Tablet by [place] (DEXILANT) 00:00: mouth of 60 MG CPDR [...] 4 [facility] (LIALDA) 6-02 Tablets by [facility] ge 1.2 g TBEC 00:00: mouth of 00 daily. Medicin e lamotrigine Yes 200mg Take 200 [facility] (LAMICTAL) 5-24 mg by [place] 100 MG 00:00: mouth. of tablet 00 Medicin e Hydrocortis Yes 1{appli Apply 1 [facility] one, 5-21 cation} applicatio [facility] Perianal, 00:00: n of (ANUSOL-HC) 00 topically Med icin 2.5 % CREA two times e daily. Hydrocortis Yes 1{appli Apply 1 [facility] one, 5-21 cation} applicatio [facility] Perianal, 00:00: n of (ANUSOL-HC) 00 topically Med icin 2.5 % CREA two times e daily. Hydrocortis Yes 1{appli Apply 1 [facility] one, 5-21 cation} applicatio [facility] [...] two times e daily. Amphetamine Amphetamine Yes SHAOJIE Q0.5D TAKE 1 [facility] -Dextroamph -Dextroamph - [...] Center the afternoon . ELIQUIS 5 Yes [id number] TAKE ONE Mikal MG TABS 4-14 TABLET BY [place] 00:00: MOUTH of 00 TWICE A Medicin DAY e meclizine Yes 25mg Take 1 [facility] (ANTIVERT) 1-20 Tablet by Deangelo ege 25 MG 00:00: mouth 3 of tablet 00 times Medicin daily as e needed for Dizziness. ondansetron Yes 8mg Take 1 [facility] (ZOFRAN) 8 1-20 Tablet by Deangelo ege mg tablet 00:00: mouth of 00 every 8 Medicin hours as e needed. meclizine Yes 25mg Take 1 [facility] (ANTIVERT) 1-20 Tablet by Deangeol ege 25 MG 00:00: mouth 3 of tablet 00 times Medicin daily as e needed for Dizziness. ondansetron Yes 8mg Take 1 [facility] (ZOFRAN) 8 1-20 Tablet by Deangelo ege mg tablet 00:00: mouth of 00 every 8 Medicin hours as e needed. Mesalamine Yes 4.8g Take 4 [facility] (LIALDA) 1-[address] [facility] 1.2 g TBEC 00:00: mouth of 00 daily. Medicin e trazodone 2019-06 Yes 100mg Take 100 [facility] (DESYREL) 2-22 mg by [place] 100 MG 20:30: mouth of tablet 18 nightly. Medicin e lamotrigine 2019-06 Yes 100mg Take 100 [facility] (LAMICTAL) 2-22 mg by [place] 25 MG 20:30: mouth. of tablet 18 Medicin e trazodone 2019-06 Yes 100mg Take 100 [facility] (DESYREL) 2-22 mg by [place] 100 MG 14:30: mouth of tablet 18 nightly. Medicin e lamotrigine 2019-06 Yes 100mg Take 100 [facility] (LAMICTAL) 2-22 mg by [place] 25 MG 14:30: mouth. of tablet 18 Medicin e ELIQUIS 5 2019-06 Yes [id number] TAKE ONE Mikal MG TABS 2-09 TABLET BY [place] 00:00: MOUTH of 00 TWICE A Medicin DAY e Dexlansopra 2019-06 Yes [id number] 1{tbl} Take 1 [facility] zole 2-04 Tablet by [place] (DEXILANT) 00:00: mouth of 60 MG CPDR 00 daily. Medicin e Dexlansopra 2019-06 Yes [id number] 1{tbl} Take 1 [facility] zole 2-04 Tablet by [place] (DEXILANT) 00:00: mouth of 60 MG CPDR 00 daily. Medicin e Norethin-Et 2019-06 2020- No Take by [facility] 07-12 11-19 mouth. Colle [facility] Biphas (LO 19:45: 00:00 of LOESTRIN 56 :00 Medicin FE) 1 MG-10 e MCG / 10 MCG TABS Norethin-Et 2019-06 2020- No Take by [facility] 07-12 11 mouth. Colle ge Biphas (LO 19:45: 00:00 of LOESTRIN 56 :00 Medicin FE) 1 MG-10 e MCG / 10 MCG TABS trazodone 2019-06 Yes 100mg Take 100 [facility] (DESYREL) 1-19 mg by [place] 100 MG 19:45: mouth of tablet 50 nightly. Medicin e lamotrigine 2019-06 Yes 100mg Take 100 [facility] (LAMICTAL) 1-19 mg by [place] 25 MG 19:45: mouth. of tablet 50 Medicin e trazodone 2019-06 Yes 100mg Take 100 [facility] (DESYREL) 1-19 mg by [place] 100 MG 19:45: mouth of tablet 50 nightly. Medicin e lamotrigine 2019-06 Yes 100mg Take 100 [facility] (LAMICTAL) 1-19 mg by [place] 25 MG 19:45: mouth. of tablet 50 Medicin e fluticasone 2019-06 Yes 2{spray 2 Sprays [facility] (FLONASE) 1-19 } by Each [place] 50 MCG/ACT 00:00: Nostril of nasal spray 00 route two Med icin times e daily. gabapentin 2019-06 Yes 300mg Take 1 [facility] (NEURONTIN) 1-19 capsule by [facility] 300 MG 00:00: mouth 3 of capsule 00 times Medicin daily. e fluticasone 2019-06 Yes 2{spray 2 Sprays [facility] (FLONASE) 1-19 } by Each [place] 50 MCG/ACT 00:00: Nostril of nasal spray 00 route two Med icin times e daily. fluticasone 2019-06 Yes 2{spray 2 Sprays [facility] (FLONASE) 1-19 } by [facility] [employer] 50 MCG/ACT 00:00: Nostril of nasal spray 00 route two Med icin times e daily. gabapentin 2019-06 Yes 300mg Take 1 [facility] (NEURONTIN) 1-19 capsule by [facility] 300 MG 00:00: mouth 3 of capsule 00 times Medicin daily. e fluticasone 2019-06 Yes 2{spray 2 Sprays [facility] (FLONASE) 1-19 } by [employer] 50 MCG/ACT 00:00: Nostril of nasal spray 00 route two Med icin times e daily. gabapentin 2019-06 Yes 300mg Take 1 [facility] (NEURONTIN) 1-19 capsule by [facility] 300 MG 00:00: mouth 3 of capsule 00 times Medicin daily. e fluticasone 2019-06 Yes 2{spray 2 Sprays [facility] (FLONASE) 1-19 } by Each [place] 50 MCG/ACT 00:00: Nostril of nasal spray [...] capsule 00 times Medicin daily. e ketoconazol 2019-06 Yes Apply to Un marko e 2 % 1-18 affected ity of shampoo 00:00: [facility] daily. Medical Apply to Branch affected areas and let shampoo sit for 5 minutes then rinse. ketoconazol 2019-06 Yes Apply to Un marko e 2 % 1-18 affected ity of shampoo 00:00: [facility] 00 daily. Medical Apply to Branch affected areas and let shampoo sit for 5 minutes then rinse. ketoconazol 2019-06 Yes Apply to Un marko e 2 [...] pantoprazol 2019-06 Yes 40mg Take 1 Tab [facility] e 1-03 by mouth [place] (PROTONIX) 00:00: daily. 1 of 40 MG 00 tablet by Medicin tablet mouth e every day pantoprazol 2019-06 Yes 40mg Take 1 Tab [facility] e 1-03 by mouth [place] (PROTONIX) 00:00: daily. 1 of 40 MG 00 tablet by Medicin tablet mouth e every day pantoprazol 2019-06 Yes 40mg Take 1 Tab [facility] e 1-03 by mouth [place] (PROTONIX) 00:00: daily. 1 of 40 MG 00 tablet by Medicin tablet mouth e every day pantoprazol 2019-06- No 40mg Take 1 Tab [facility] e 1-03 09-10 by [facility] (PROTONIX) 00:00: 00:00 daily. 1 of 40 MG 00 :00 tablet by Medicin tablet mouth e every day pantoprazol 2019-06- No 40mg Take 1 Tab Mikal e 1-03 09-10 by [facility] (PROTONIX) 00:00: 00:00 daily. 1 of 40 MG 00 :00 tablet by Medicin tablet mouth e every day Apixaban 2019-06 Yes [id number] 5mg Take 5 mg [facility] (ELIQUIS) 5 0-19 by mouth Deangelo ege MG TABS 00:00: two times of 00 daily. Medicin e Apixaban 2019-06 Yes [id number] 5mg Take 5 mg [facility] (ELIQUIS) 5 0-19 by mouth Deangelo ege MG TABS 00:00: two times of 00 daily. Medicin e clindamycin 2020-0 Yes [id number] Apply to [facility] 1 % gel 9-17 affected ity of 00:00: area(s) 2 [place] 00 (two) Medical times Branch daily. clindamycin 2020-0 Yes [id number] Apply to [facility] 1 % gel 9-17 affected ity of 00:00: area(s) 2 [place] 00 (two) Medical times Branch daily. clindamycin 2020-0 Yes [id number] Apply to [facility] 1 % gel 9-17 affected ity of 00:00: area(s) 2 [place] 00 (two) Medical times Branch daily. clindamycin 2020-0 Yes [id number] Apply to [facility] 1 % gel 9-17 affected ity of 00:00: area(s) 2 [place] 00 (two) Medical times Branch daily. clindamycin 2020-0 Yes [id number] Apply to [facility] 1 % gel 9-17 affected ity of 00:00: area(s) 2 [place] 00 (two) Medical times Branch daily. clindamycin 2020-0 Yes [id number] Apply to [facility] 1 % gel 9-17 affected ity of 00:00: area(s) 2 [place] 00 (two) Medical times Branch daily. clindamycin 2020-0 Yes [id number] Apply to [facility] 1 % gel 9-17 affected ity of 00:00: area(s) 2 [place] 00 (two) Medical times Branch daily. clindamycin 2020-0 Yes [id number] Apply to [facility] 1 % gel 9-17 affected ity of 00:00: area(s) 2 [place] 00 (two) Medical times Branch daily. clindamycin 2020-0 Yes [id number] Apply to [facility] 1 % gel 9-17 affected ity of 00:00: area(s) 2 [place] 00 (two) Medical times Branch daily. clindamycin 2020-0 Yes [id number] Apply to [facility] 1 % gel 9-17 affected ity of 00:00: area(s) 2 [place] 00 (two) Medical times Branch daily. clindamycin 2020-0 Yes [id number] Apply to [facility] 1 % gel 9-17 affected ity of 00:00: area(s) 2 [place] 00 (two) Medical times Branch daily. clindamycin 2020-0 Yes [id number] Apply to [facility] 1 % gel 9-17 affected ity of 00:00: area(s) 2 [place] 00 (two) Medical times Branch daily. clindamycin 2020-0 Yes [id number] Apply to [facility] 1 % gel 9-17 affected ity of 00:00: area(s) 2 [place] 00 (two) Medical times Branch daily. clindamycin 2020-0 Yes [id number] Apply to [facility] 1 % gel 9-17 affected ity of 00:00: area(s) 2 [place] 00 (two) Medical times Branch daily. clindamycin 2020-0 Yes [id number] Apply to [facility] 1 % gel 9-17 affected ity of 00:00: area(s) 2 [place] 00 (two) Medical times Branch daily. clindamycin 2020-0 Yes [id number] Apply to [facility] 1 % gel 9-17 affected ity of 00:00: area(s) 2 [place] 00 (two) Medical times Branch daily. clindamycin 2020-0 Yes [id number] Apply to [facility] 1 % gel 9-17 affected ity of 00:00: area(s) 2 [place] 00 (two) Medical times Branch daily. clindamycin 2020-0 Yes [id number] Apply to [facility] 1 % gel 9-17 affected ity of 00:00: area(s) 2 [place] 00 (two) Medical times Branch daily. clindamycin 2020-0 Yes [id number] Apply to [facility] 1 % gel 9-17 affected ity of 00:00: area(s) 2 [place] 00 (two) Medical times Branch daily. clindamycin 2020-0 Yes [id number] Apply to [facility] 1 % gel 9-17 affected ity of 00:00: area(s) 2 [place] 00 (two) Medical times Branch daily. clindamycin 2020-0 Yes [id number] Apply to [facility] 1 % gel 9-17 affected ity of 00:00: area(s) 2 [place] 00 (two) Medical times Branch daily. clindamycin 2020-0 Yes [id number] Apply to [facility] 1 % gel 9-17 affected ity of 00:00: area(s) 2 [place] 00 (two) Medical times Branch daily. clindamycin 2020-0 Yes [id number] Apply to [facility] 1 % gel 9-17 affected ity of 00:00: area(s) 2 [place] 00 (two) Medical times Branch daily. clindamycin 2020-0 Yes [id number] Apply to [facility] 1 % gel 9-17 affected ity of 00:00: area(s) 2 [place] 00 (two) Medical times Branch daily. clindamycin 2020-0 Yes [id number] Apply to [facility] 1 % gel 9-17 affected ity of 00:00: area(s) 2 [place] 00 (two) Medical times Branch daily. clindamycin 2020-0 Yes [id number] Apply to [facility] 1 % gel 9-17 affected ity of 00:00: area(s) 2 [place] 00 (two) Medical times Branch daily. clindamycin 2020-0 Yes [id number] Apply to [facility] 1 % gel 9-17 affected ity of 00:00: area(s) 2 [place] 00 (two) Medical times Branch daily. clindamycin 2020-0 Yes [id number] Apply to [facility] 1 % gel 9-17 affected ity of 00:00: area(s) 2 [place] 00 (two) Medical times Branch daily. clindamycin 2020-0 Yes [id number] Apply to [facility] 1 % gel 9-17 affected ity of 00:00: area(s) 2 [place] 00 (two) Medical times Branch daily. clindamycin 2020-0 Yes [id number] Apply to [facility] 1 % gel 9-17 affected ity of 00:00: area(s) 2 [place] 00 (two) Medical times Branch daily. clindamycin 2020-0 Yes [id number] Apply to [facility] 1 % gel 9-17 affected ity of 00:00: area(s) 2 [place] 00 (two) Medical times Branch daily. clindamycin 2020-0 Yes [id number] Apply to [facility] 1 % gel 9-17 affected ity of 00:00: area(s) 2 [place] 00 (two) Medical times Branch daily. clindamycin 2020-0 Yes [id number] Apply to [facility] 1 % gel 9-17 affected ity of 00:00: area(s) 2 [place] 00 (two) Medical times Branch daily. fluticasone 2020-0 Yes [id number] 1{puff} Inhale 1 [facility] -salmeterol 8-06 Puff by Colle ge (ADVAIR 00:00: mouth two of DISKUS) 00 times Medicin 500-50 daily. e MCG/DOSE inhaler fluticasone 2020-0 Yes [id number] 1{puff} Inhale 1 [facility] -salmeterol 8-06 Puff by Colle ge (ADVAIR 00:00: mouth two of DISKUS) 00 times Medicin 500-50 daily. e MCG/DOSE inhaler fluticasone 2020-0 Yes [id number] 1{puff} Inhale 1 [facility] -salmeterol 8-06 Puff by Colle ge (ADVAIR 00:00: mouth two of DISKUS) 00 times Medicin 500-50 daily. e MCG/DOSE inhaler fluticasone 2020-0 Yes [id number] 1{puff} Inhale 1 [facility] -salmeterol 8-06 Puff by Colle ge (ADVAIR 00:00: mouth two of DISKUS) 00 times Medicin 500-50 daily. e MCG/DOSE inhaler fluticasone 2020-0 Yes [id number] 1{puff} Inhale 1 [facility] -salmeterol 8-06 Puff by Colle ge (ADVAIR 00:00: mouth two of DISKUS) 00 times Medicin 500-50 daily. e MCG/DOSE inhaler fluticasone 2020-0 Yes [id number] 1{puff} Inhale 1 [facility] -salmeterol 8-06 Puff by Colle ge (ADVAIR 00:00: mouth two of DISKUS) 00 times Medicin 500-50 daily. e MCG/DOSE inhaler fluticasone 2020-0 Yes [id number] 1{puff} Inhale 1 [facility] -salmeterol 8-06 Puff by Colle ge (ADVAIR 00:00: mouth two of DISKUS) 00 times Medicin 500-50 daily. e MCG/DOSE inhaler fluticasone 2020-0 Yes [id number] 1{puff} Inhale 1 [facility] -salmeterol 8-06 Puff by Stand In (ADVAIR 00:00: mouth two of DISKUS) 00 times Medicin 500-50 daily. e MCG/DOSE inhaler lamoTRIgine lamoTRIgine 2019-0 Yes HECTOR TAKE 2 UT 100 MG Oral 100 MG Oral 05 STORM M.D. TABLETS BY [facility]ici Tablet Tablet 00:00: MOUTH ans 00 BEDTIME Na 2019-0 2020- No [SUPREP] [facility] Sulfate-K 01-26 Take as Colleg e Sulfate-Mg 00:00: 00:00 directed. o f Sulf 00 :00 Medicin (SUPREP e BOWEL PREP KIT) 17.5-3.13-1 .6 GM/177ML SOLN Na 0 2020- No [SUPREP] [facility] Sulfate-K 01-26 Take as Colleg e Sulfate-Mg 00:00: 00:00 directed. o f Sulf 00 :00 Medicin (SUPREP e BOWEL PREP KIT) 17.5-3.13-1 .6 GM/177ML SOLN Ondansetron Ondansetron 2019-0 Yes YANELI Every 8 UT 4 MG Oral 4 MG Oral 7-10 VANESA hours as Physici Tablet Tablet 00:00: N.P. needed for ans Disintegrat Disintegrat 00 nausea ing ing Acetaminoph Acetaminoph 2019-0 Yes YANELI 1 TAKE 1 UT en-Codeine en-Codeine 7-10 VANESA TABLET Physici #3 300-30 #3 300-30 00:00: N.P. EVERY 6 ans MG Oral MG Oral 00 HOURS Tablet Tablet NEEDED FOR PAIN. ELIQUIS 2019-0 2020- No [facility] DVT/PE 7-02 11-19 College STARTER 00:00: 00:00 of PACK 5 MG 00 :00 Medicin TABS e HYDROcodone 2019-0 2020- No 1{tbl} 1 tablet, Univers -acetaminop 12-21 Oral, ity of hen (NORCO 06:15: 05:11 ONCE, 1 Tim as 5) 5-325 mg 00 :00 dose, Tue Med ical tablet 1 12/22/19 at [facility] h tablet 0115, DAVEY iohexol 2019-0 2020- No 120mL 120 mL, Unive rs (OMNIPAQUE 12-21 Intravenou it y of 350 05:45: 05:45 s, ONCE, 1 [place] BULK-150 00 :00 dose, Tue Medica l mL) 12/22/19 at [place] injection 0045, 120 mL Routine aspirin 2019-2019- No 325mg 325 mg, Unive rs tablet 325 12-21 Oral, ity of mg 03:00: 03:34 ONCE, 1 [place] 00 :00 dose, Mon Medical 12/21/19 at Branch 2200, STAT methylPREDN methylPREDN 2019-[address]U TAKE UT ISolone 4 ISolone 4 3-02 M.D. DIRECTED P hysici MG Oral MG Oral 00:00: ans Tablet Tablet 00 Therapy Therapy Pack Pack traMADol 50 2020-0 Yes [id number] 50mg Take 1 [facility] mg tablet 2 [id number] tablet by ity of 00:00: mouth [place] 00 every 6 Medical (six) Branch hours as needed for Pain (scale 4-6). traMADol 50 2019-0 Yes [id number] 50mg Take 1 Univers mg tablet 2-27 [id number] tablet by ity of 00:00: mouth [place] 00 every 6 Medical (six) Branch hours as needed for Pain (scale 4-6). traMADol 50 2020-0 Yes [id number] 50mg Take 1 Univers mg tablet 2-27 [id number] tablet by ity of 00:00: mouth [place] 00 every 6 Medical (six) Branch hours as needed for Pain (scale 4-6). traMADol 50 2020-0 Yes [id number] 50mg Take 1 Univers mg tablet 2-27 [id number] tablet by ity of 00:00: mouth [place] 00 every 6 Medical (six) Branch hours as needed for Pain (scale 4-6). traMADol 50 2020-0 Yes [id number] 50mg Take 1 Univers mg tablet 2-27 [id number] tablet by ity of 00:00: mouth [place] 00 every 6 Medical (six) Branch hours as needed for Pain (scale 4-6). traMADol 50 2020-0 Yes [id number] 50mg Take 1 [facility] mg tablet 2-27 [id number] tablet by ity of 00:00: mouth [place] 00 every 6 Medical (six) Branch hours as needed for Pain (scale 4-6). traMADol 50 2020-0 Yes [id number] 50mg Take 1 Univers mg tablet 2-27 [id number] tablet by ity of 00:00: mouth [place] 00 every 6 Medical (six) Branch hours as needed for Pain (scale 4-6). traMADol 50 2020-0 Yes [id number] 50mg Take 1 Univers mg tablet 2-27 [id number] tablet by ity of 00:00: mouth [place] 00 every 6 Medical (six) Branch hours as needed for Pain (scale 4-6). traMADol 50 2020-0 Yes [id number] 50mg Take 1 Univers mg tablet 2-27 [id number] tablet by ity of 00:00: mouth [place] 00 every 6 Medical (six) Branch hours as needed for Pain (scale 4-6). traMADol 50 2020-0 Yes [id number] 50mg Take 1 Univers mg tablet 2-27 [id number] tablet by ity of 00:00: mouth [place] 00 every 6 Medical (six) Branch hours as needed for Pain (scale 4-6). traMADol 50 2020-0 Yes [id number] 50mg Take 1 Univers mg tablet 2-27 [id number] tablet by ity of 00:00: mouth [place] 00 every 6 Medical (six) Branch hours as needed for Pain (scale 4-6). traMADol 50 2020-0 Yes [id number] 50mg Take 1 Univers mg tablet 2-27 [id number] tablet by ity of 00:00: mouth [place] 00 every 6 Medical (six) Branch hours as needed for Pain (scale 4-6). traMADol 50 2020-0 Yes [id number] 50mg Take 1 Univers mg tablet 2-27 [id number] tablet by ity of 00:00: mouth [place] 00 every 6 Medical (six) Branch hours as needed for Pain (scale 4-6). traMADol 50 2020-0 Yes [id number] 50mg Take 1 Univers mg tablet 2- [id number] tablet by ity of 00:00: mouth [place] 00 every 6 Medical (six) Branch hours as needed for Pain (scale 4-6). traMADol 50 2020-0 Yes [id number] 50mg Take 1 [facility] mg tablet 2 [id number] tablet by ity of 00:00: mouth [place] 00 every 6 Medical (six) Branch hours as needed for Pain (scale 4-6). traMADol 50 2020-0 Yes [id number] 50mg Take 1 [facility] mg tablet 2 [id number] tablet by ity of 00:00: mouth [place] 00 every 6 Medical (six) Branch hours as needed for Pain (scale 4-6). traMADol 50 2020-0 Yes [id number] 50mg Take 1 [facility] mg tablet 2 [id number] tablet by ity of 00:00: mouth [place] 00 every 6 Medical (six) Branch hours as needed for Pain (scale 4-6). traMADol 50 2020-0 Yes [id number] 50mg Take 1 Univers mg tablet 2-27 [id number] tablet by ity of 00:00: mouth [place] 00 every 6 Medical (six) Branch hours as needed for Pain (scale 4-6). traMADol 50 2020-0 Yes [id number] 50mg Take 1 Univers mg tablet 2-27 [id number] tablet by ity of 00:00: mouth [place] 00 every 6 Medical (six) Branch hours as needed for Pain (scale 4-6). traMADol 50 2020-0 Yes [id number] 50mg Take 1 Univers mg tablet 2-27 [id number] tablet by ity of 00:00: mouth [place] 00 every 6 Medical (six) Branch hours as needed for Pain (scale 4-6). traMADol 50 2020-0 Yes [id number] 50mg Take 1 Univers mg tablet 2-27 [id number] tablet by ity of 00:00: mouth [place] 00 every 6 Medical (six) Branch hours as needed for Pain (scale 4-6). traMADol 50 2020-0 Yes [id number] 50mg Take 1 Univers mg tablet 2-27 [id number] tablet by ity of 00:00: mouth [place] 00 every 6 Medical (six) Branch hours as needed for Pain (scale 4-6). traMADol 50 2020-0 Yes [id number] 50mg Take 1 Univers mg tablet 2-27 [id number] tablet by ity of 00:00: mouth [place] 00 every 6 Medical (six) Branch hours as needed for Pain (scale 4-6). traMADol 50 2020-0 Yes [id number] 50mg Take 1 Univers mg tablet 2-27 [id number] tablet by ity of 00:00: mouth [place] 00 every 6 Medical (six) Branch hours as needed for Pain (scale 4-6). traMADol 50 2020-0 Yes [id number] 50mg Take 1 [facility] mg tablet 2-27 [id number] tablet by ity of 00:00: mouth [place] 00 every 6 Medical (six) Branch hours as needed for Pain (scale 4-6). traMADol 50 2020-0 Yes [id number] 50mg Take 1 [facility] mg tablet 2-27 [id number] tablet by ity of 00:00: mouth [place] 00 every 6 Medical (six) Branch hours as needed for Pain (scale 4-6). traMADol 50 2020-0 Yes [id number] 50mg Take 1 [facility] mg tablet 2-27 [id number] tablet by ity of 00:00: mouth [place] 00 every 6 Medical (six) Branch hours as needed for Pain (scale 4-6). traMADol 50 2020-0 Yes [id number] 50mg Take 1 [facility] mg tablet 2-27 [id number] tablet by ity of 00:00: mouth [place] 00 every 6 Medical (six) Branch hours as needed for Pain (scale 4-6). traMADol 50 2020-0 Yes [id number] 50mg Take 1 [facility] mg tablet 2-27 [id number] tablet by ity of 00:00: mouth [place] 00 every 6 Medical (six) Branch hours as needed for Pain (scale 4-6). traMADol 50 2020-0 Yes [id number] 50mg Take 1 Univers mg tablet 2 [id number] tablet by ity of 00:00: mouth [place] 00 every 6 Medical (six) Branch hours as needed for Pain (scale 4-6). traMADol 50 2020-0 Yes [id number] 50mg Take 1 Univers mg tablet 2- [id number] tablet by ity of 00:00: mouth [place] 00 every 6 Medical (six) Branch hours as needed for Pain (scale 4-6). traMADol 50 2020-0 Yes [id number] 50mg Take 1 [facility] mg tablet 2- [id number] tablet by ity of 00:00: mouth [place] 00 every 6 Medical (six) Branch hours as needed for Pain (scale 4-6). traMADol 50 2020-0 Yes [id number] 50mg Take 1 Univers mg tablet 2 [id number] tablet by ity of 00:00: mouth [place] 00 every 6 Medical (six) Branch hours as needed for Pain (scale 4-6). traMADol 50 2020-0 Yes [id number] 50mg Take 1 [facility] mg tablet 2 [id number] tablet by ity of 00:00: mouth [place] 00 every 6 Medical (six) Branch hours as needed for Pain (scale 4-6). traMADol 50 2020-0 Yes [id number] 50mg Take 1 [facility] mg tablet 2 [id number] tablet by ity of 00:00: mouth [place] 00 every 6 Medical (six) Branch hours as needed for Pain (scale 4-6). traMADol 50 2020-0 Yes [id number] 50mg Take 1 [facility] mg tablet 2 [id number] tablet by ity of 00:00: mouth [place] 00 every 6 Medical (six) Branch hours as needed for Pain (scale 4-6). traMADol 50 2020-0 Yes [id number] 50mg Take 1 Univers mg tablet 2- [id number] tablet by ity of 00:00: mouth [place] 00 every 6 Medical (six) Branch hours as needed for Pain (scale 4-6). methocarbam 2020-0 2020- No 750mg Take 750 Mikal ol 2-27 11-19 mg by [place] (ROBAXIN) 00:00: 00:00 mouth four o f 750 MG 00 :00 times Medicin tablet daily. e methocarbam 2020-0 2020- No 750mg Take 750 Mikal ol 2-27 11-19 mg by [place] (ROBAXIN) 00:00: 00:00 mouth four o f 750 MG 00 :00 times Medicin tablet daily. e methocarbam 2020-0 2020- No [id number] 1500mg Take 2 Univers ol 750 mg 2-27 03-03 [id number] tablets by i ty of tablet 00:00: 05:59 mouth 4 [place] 00 :00 (four) Medical times Branch daily for 4 days. Mesalamine Mesalamine 2020-0 Yes KOBE 2 Q0.5D TAKE 2 UT 400 MG Oral 400 MG Oral 2-26 OBONYANO CAPSULE Physici Capsule Capsule 00:00: EDITOR TRADE JOURNAL Twice ans Delayed Delayed 00 daily Release Release TDD:1.6gm Trezix Trezix 2020-0 Yes ISAI TAKE 2 UT 320.5-30-16 320.5-30-16 1-20 KAY CAPSULES Physici MG Oral MG Oral 00:00: EDITOR TRADE JOURNAL BY MOUTH ans Capsule Capsule 00 EVERY 4 TO 6 HOURS NEEDED FOR PAIN ondansetron 2020-0 Yes [id number] 4mg Take 1 Univers 4 mg 1-10 tablet by ity of disintegrat 00:00: mouth [place] ing tablet 00 every 12 Medic al (twelve) Branch hours as needed for Nausea and Vomiting (N/V). ondansetron 2020-0 Yes [id number] 4mg Take 1 Univers 4 mg 1-10 tablet by ity of disintegrat 00:00: mouth [place] ing tablet 00 every 12 Medic al (twelve) Branch hours as needed for Nausea and Vomiting (N/V). ondansetron 2020-0 Yes [id number] 4mg Take 1 Univers 4 mg 1-10 tablet by ity of disintegrat 00:00: mouth [place] ing tablet 00 every 12 Medic al (twelve) Branch hours as needed for Nausea and Vomiting (N/V). ondansetron 2020-0 Yes [id number] 4mg Take 1 Univers 4 mg 1-10 tablet by ity of disintegrat 00:00: mouth [place] ing tablet 00 every 12 Medic al (twelve) Branch hours as needed for Nausea and Vomiting (N/V). ondansetron 2020-0 Yes [id number] 4mg Take 1 Univers 4 mg 1-10 tablet by ity of disintegrat 00:00: mouth [place] ing tablet 00 every 12 Medic al (twelve) Branch hours as needed for Nausea and Vomiting (N/V). ondansetron 2020-0 Yes [id number] 4mg Take 1 Univers 4 mg 1-10 tablet by ity of disintegrat 00:00: mouth [place] ing tablet 00 every 12 Medic al (twelve) Branch hours as needed for Nausea and Vomiting (N/V). ondansetron 2020-0 Yes [id number] 4mg Take 1 Univers 4 mg 1-10 tablet by ity of disintegrat 00:00: mouth [place] ing tablet 00 every 12 Medic al (twelve) Branch hours as needed for Nausea and Vomiting (N/V). ondansetron 2020-0 Yes [id number] 4mg Take 1 Univers 4 mg 1-10 tablet by ity of disintegrat 00:00: mouth [place] ing tablet 00 every 12 Medic al (twelve) Branch hours as needed for Nausea and Vomiting (N/V). ondansetron 2020-0 Yes [id number] 4mg Take 1 Univers 4 mg 1-10 tablet by ity of disintegrat 00:00: mouth [place] ing tablet 00 every 12 Medic al (twelve) Branch hours as needed for Nausea and Vomiting (N/V). ondansetron 2020-0 Yes [id number] 4mg Take 1 Univers 4 mg 1-10 tablet by ity of disintegrat 00:00: mouth [place] ing tablet 00 every 12 Medic al (twelve) Branch hours as needed for Nausea and Vomiting (N/V). ondansetron 2020-0 Yes [id number] 4mg Take 1 Univers 4 mg 1-10 tablet by ity of disintegrat 00:00: mouth [place] ing tablet 00 every 12 Medic al (twelve) Branch hours as needed for Nausea and Vomiting (N/V). ondansetron 2020-0 Yes [id number] 4mg Take 1 Univers 4 mg 1-10 tablet by ity of disintegrat 00:00: mouth [place] ing tablet 00 every 12 Medic al (twelve) Branch hours as needed for Nausea and Vomiting (N/V). ondansetron 2020-0 Yes [id number] 4mg Take 1 Univers 4 mg 1-10 tablet by ity of disintegrat 00:00: mouth [place] ing tablet 00 every 12 Medic al (twelve) Branch hours as needed for Nausea and Vomiting (N/V). ondansetron 2020-0 Yes [id number] 4mg Take 1 Univers 4 mg 1-10 tablet by ity of disintegrat 00:00: mouth [place] ing tablet 00 every 12 Medic al (twelve) Branch hours as needed for Nausea and Vomiting (N/V). ondansetron 2020-0 Yes [id number] 4mg Take 1 Univers 4 mg 1-10 tablet by ity of disintegrat 00:00: mouth [place] ing tablet 00 every 12 Medic al (twelve) Branch hours as needed for Nausea and Vomiting (N/V). ondansetron 2020-0 Yes [id number] 4mg Take 1 Univers 4 mg 1-10 tablet by ity of disintegrat 00:00: mouth [place] ing tablet 00 every 12 Medic al (twelve) Branch hours as needed for Nausea and Vomiting (N/V). ondansetron 2020-0 Yes [id number] 4mg Take 1 Univers 4 mg 1-10 tablet by ity of disintegrat 00:00: mouth [place] ing tablet 00 every 12 Medic al (twelve) Branch hours as needed for Nausea and Vomiting (N/V). ondansetron 2020-0 Yes [id number] 4mg Take 1 Univers 4 mg 1-10 tablet by ity of disintegrat 00:00: mouth [place] ing tablet 00 every 12 Medic al (twelve) Branch hours as needed for Nausea and Vomiting (N/V). ondansetron 2020-0 Yes [id number] 4mg Take 1 Univers 4 mg 1-10 tablet by ity of disintegrat 00:00: mouth [place] ing tablet 00 every 12 Medic al (twelve) Branch hours as needed for Nausea and Vomiting (N/V). ondansetron 2020-0 Yes [id number] 4mg Take 1 Univers 4 mg 1-10 tablet by ity of disintegrat 00:00: mouth [place] ing tablet 00 every 12 Medic al (twelve) Branch hours as needed for Nausea and Vomiting (N/V). ondansetron 2020-0 Yes [id number] 4mg Take 1 Univers 4 mg 1-10 tablet by ity of disintegrat 00:00: mouth [place] ing tablet 00 every 12 Medic al (twelve) Branch hours as needed for Nausea and Vomiting (N/V). ondansetron 2020-0 Yes [id number] 4mg Take 1 Univers 4 mg 1-10 tablet by ity of disintegrat 00:00: mouth [place] ing tablet 00 every 12 Medic al (twelve) Branch hours as needed for Nausea and Vomiting (N/V). ondansetron 2020-0 Yes [id number] 4mg Take 1 Univers 4 mg 1-10 tablet by ity of disintegrat 00:00: mouth [place] ing tablet 00 every 12 Medic al (twelve) Branch hours as needed for Nausea and Vomiting (N/V). ondansetron 2020-0 Yes [id number] 4mg Take 1 Univers 4 mg 1-10 tablet by ity of disintegrat 00:00: mouth [place] ing tablet 00 every 12 Medic al (twelve) Branch hours as needed for Nausea and Vomiting (N/V). ondansetron 2020-0 Yes [id number] 4mg Take 1 Univers 4 mg 1-10 tablet by ity of disintegrat 00:00: mouth [place] ing tablet 00 every 12 Medic al (twelve) Branch hours as needed for Nausea and Vomiting (N/V). ondansetron 2020-0 Yes [id number] 4mg Take 1 Univers 4 mg 1-10 tablet by ity of disintegrat 00:00: mouth [place] ing tablet 00 every 12 Medic al (twelve) Branch hours as needed for Nausea and Vomiting (N/V). ondansetron 2020-0 Yes [id number] 4mg Take 1 Univers 4 mg 1-10 tablet by ity of disintegrat 00:00: mouth [place] ing tablet 00 every 12 Medic al (twelve) Branch hours as needed for Nausea and Vomiting (N/V). ondansetron 2020-0 Yes [id number] 4mg Take 1 Univers 4 mg 1-10 tablet by ity of disintegrat 00:00: mouth [place] ing tablet 00 every 12 Medic al (twelve) Branch hours as needed for Nausea and Vomiting (N/V). ondansetron 2020-0 Yes [id number] 4mg Take 1 Univers 4 mg 1-10 tablet by ity of disintegrat 00:00: mouth [place] ing tablet 00 every 12 Medic al (twelve) Branch hours as needed for Nausea and Vomiting (N/V). ondansetron 2020-0 Yes [id number] 4mg Take 1 [facility] 4 mg 1-10 tablet by ity of disintegrat 00:00: mouth [place] ing tablet 00 every 12 Medic al (twelve) Branch hours as needed for Nausea and Vomiting (N/V). ondansetron 2020-0 Yes [id number] 4mg Take 1 [facility] 4 mg 1-10 tablet by ity of disintegrat 00:00: mouth [place] ing tablet 00 every 12 Medic al (twelve) Branch hours as needed for Nausea and Vomiting (N/V). ondansetron 2020-0 Yes [id number] 4mg Take 1 [facility] 4 mg 1-10 tablet by ity of disintegrat 00:00: mouth [place] ing tablet 00 every 12 Medic al (twelve) Branch hours as needed for Nausea and Vomiting (N/V). ondansetron 2020-0 Yes [id number] 4mg Take 1 [facility] 4 mg 1-10 tablet by ity of disintegrat 00:00: mouth [place] ing tablet 00 every 12 Medic al (twelve) Branch hours as needed for Nausea and Vomiting (N/V). ondansetron 2020-0 Yes [id number] 4mg Take 1 [facility] 4 mg 1-10 tablet by ity of disintegrat 00:00: mouth [place] ing tablet 00 every 12 Medic al (twelve) Branch hours as needed for Nausea and Vomiting (N/V). ondansetron 2020-0 Yes [id number] 4mg Take 1 [facility] 4 mg 1-10 tablet by ity of disintegrat 00:00: mouth [place] ing tablet 00 every 12 Medic al (twelve) Branch hours as needed for Nausea and Vomiting (N/V). ondansetron 2020-0 Yes [id number] 4mg Take 1 [facility] 4 mg 1-10 tablet by ity of disintegrat 00:00: mouth [place] ing tablet 00 every 12 Medic al (twelve) Branch hours as needed for Nausea and Vomiting (N/V). ondansetron 2020-0 Yes [id number] 4mg Take 1 [facility] 4 mg 1-10 tablet by ity of disintegrat 00:00: mouth [place] ing tablet 00 every 12 Medic al (twelve) Branch hours as needed for Nausea and Vomiting (N/V). ondansetron 2020-0 Yes [id number] 4mg Take 1 [facility] 4 mg 1-10 tablet by ity of disintegrat 00:00: mouth [place] ing tablet 00 every 12 Medic al (twelve) Branch hours as needed for Nausea and Vomiting (N/V). Pregabalin Pregabalin 2018-06 Yes ISAI Q0.3333D TAKE 1 UT 75 MG Oral 75 MG Oral 1-26 KAY CAPSULE 3 [facility]ici Capsule Capsule 00:00: EDITOR TRADE JOURNAL TIMES ans 00 DAILY. Ibuprofen Ibuprofen 2018-06 Yes UT 200 MG Oral 200 MG Oral 1-11 P hysici Tablet Tablet 00:00: ans 00 Fluticasone Fluticasone 2018- Yes CASTILLO Q0.5D INHALE ONE [facility] -Salmeterol -Salmeterol 0-16 CHITRA PUFF BY Physici 500-50 500-50 00:00: M.D. MOUTH ans MCG/DOSE MCG/DOSE 00 TWICE A Inhalation Inhalation DAY Aerosol Aerosol Powder Powder Breath Breath Activated Activated CPAP CPAP 2018- Yes CASTILLO Please UT Continuous Continuous 9-16 [...] 01-23 OBONYANO CAPSULE Physici Capsule Capsule 00:00: EDITOR TRADE JOURNAL DAILY ans Delayed Delayed 00 Release Release Yes COREY HOBSON 1 QD TAKE 1 UT 1/20 1-20 1/20 1-20 7-24 EDITOR TRADE JOURNAL TABLET Phy sici MG-MCG Oral MG-MCG Oral 00:00: DAILY. ans Tablet Tablet 00 Propranolol Propranolol 2018- Yes RAMOSOGARFIELDE TAKE ONE UT HCl - 20 MG HCl - 20 MG 7-08 STORM M.D. TABLET BY Physici Oral Tablet Oral Tablet 00:00: MOUTH ans 00 TWICE A DAY NEEDED traZODone traZODone 2018- Yes SARTHAKE TAKE ONE UT HCl - 100 HCl - 100 7-08 STORM M.D. TABLET BY [facility] MG Oral MG Oral 00:00: MOUTH AT ans Tablet Tablet 00 BEDTIME Neurontin Neurontin 2018- Yes ALANA ISAACSVED Q0.3333D TAKE 1 UT 800 MG Oral 800 MG Oral 7-08 M.D. TABLET 3 Physici Tablet Tablet 00:00: TIMES ans 00 DAILY. Baclofen 20 Baclofen 20 Yes ALANA JITENDRA Q0.3333D TAKE 1 UT MG Oral MG Oral 7-08 M.D. TABLET 3 Physi ci Tablet Tablet 00:00: TIMES ans 00 DAILY NEEDED. SIMPONI 50 Yes [id number] INJECT 1 [facility] mg/0.5 mL 4-10 PEN (50 st pen 00:00: MG) Hospita injector 00 SUBCUTANEO l USLY EVERY 28 DAYS. SIMPONI 50 Yes [id number] INJECT 1 [facility]i mg/0.5 mL 4-10 PEN (50 st pen 00:00: MG) Hospita injector 00 SUBCUTANEO l USLY EVERY 28 DAYS. SIMPONI 50 Yes [id number] INJECT 1 [facility] mg/0.5 mL 4-10 PEN (50 st pen 00:00: MG) Hospita injector 00 SUBCUTANEO l USLY EVERY 28 DAYS. SIMPONI 50 Yes [id number] INJECT 1 [facility]i mg/0.5 mL 4-10 PEN (50 st pen 00:00: MG) Hospita injector 00 SUBCUTANEO l USLY EVERY 28 DAYS. SIMPONI 50 Yes [id number] INJECT 1 [facility]i mg/0.5 mL 4-10 PEN [...] BY st MG tablet 00:00: MOUTH Hospita DAILY l hydrOXYzine Yes TAKE ONE Me [...] 800 [facility] (NEURONTIN) 0-01 mg by [place] 800 MG 00:00: mouth 3 of tablet 00 times Medicin daily. e escitalopra Yes 20mg QD Take 20 mg Methodi m (LEXAPRO) 9-[address] 20 MG 00:00: daily. [facility]ospita tablet 00 l escitalopra Yes 20mg QD Take 20 mg [facility] (LEXAPRO) 9- by mouth [facility] 20 MG 00:00: daily. [facility]ospita tablet 00 l escitalopra Yes 20mg QD Take 20 mg Methodi m (LEXAPRO) 9- by mouth [facility] 20 MG 00:00: daily. Hospita tablet 00 l escitalopra Yes 20mg QD Take 20 mg Methodi m (LEXAPRO) 9- by mouth [facility] 20 MG 00:00: daily. Hospita tablet 00 l escitalopra Yes 20mg QD Take 20 mg Methodi m (LEXAPRO) 9- by mouth st 20 MG 00:00: daily. [...] for Pain (scale 4-6). LOESTRIN FE Yes [id number] 1{tbl} Take 1 Tab Univers (MICROGESTI 4-02 by mouth ity of N FE 00:00: daily. [place] ,) 1.5 Branch mg-30 mcg (21)/75 mg (7) tablet LOESTRIN FE Yes [id number] 1{tbl} Take 1 Tab [facility] (MICROGESTI 4-02 by mouth ity of N FE 00:00: daily. [place] ,) 1.5 Branch mg-30 mcg (21)/75 mg (7) tablet LOESTRIN FE Yes [id number] 1{tbl} Take 1 Tab [facility] (MICROGESTI 4-02 by mouth ity of N FE 00:00: daily. [place] ,) 1.5 Branch mg-30 mcg (21)/75 mg (7) tablet LOESTRIN FE Yes [id number] 1{tbl} Take 1 Tab [facility] (MICROGESTI 4-02 by mouth ity of N FE 00:00: daily. [place] ,) 1.5 Branch mg-30 mcg (21)/75 mg (7) tablet LOESTRIN FE Yes [id number] 1{tbl} Take 1 Tab [facility] (MICROGESTI 4-02 by mouth ity of N FE 00:00: daily. [place] ,) 1.5 Branch mg-30 mcg (21)/75 mg (7) tablet LOESTRIN FE Yes [id number] 1{tbl} Take 1 Tab [facility] (MICROGESTI 4-02 by mouth ity of N FE 00:00: daily. [place] ,) 1.5 Branch mg-30 mcg (21)/75 mg (7) tablet LOESTRIN FE Yes [id number] 1{tbl} Take 1 Tab [facility] (MICROGESTI 4-02 by mouth ity of N FE 00:00: daily. [place] ,) 1.5 Branch mg-30 mcg (21)/75 mg (7) tablet LOESTRIN FE Yes [id number] 1{tbl} Take 1 Tab Univers (MICROGESTI 4-02 by mouth ity of N FE 00:00: daily. [place] .,) 1.5 Branch mg-30 mcg (21)/75 mg (7) tablet LOESTRIN FE Yes [id number] 1{tbl} Take 1 Tab Univers (MICROGESTI 4-02 by mouth ity of N FE 00:00: daily. [place] .,) 1.5 Branch mg-30 mcg (21)/75 mg (7) tablet LOESTRIN FE Yes [id number] 1{tbl} Take 1 Tab Univers (MICROGESTI 4-02 by mouth ity of N FE 00:00: daily. [place] ,) 1.5 Branch mg-30 mcg (21)/75 mg (7) tablet LOESTRIN FE Yes [id number] 1{tbl} Take 1 Tab [facility] (MICROGESTI 4-02 by mouth ity of N FE 00:00: daily. [place] ,) 1.5 Branch mg-30 mcg (21)/75 mg (7) tablet LOESTRIN FE Yes [id number] 1{tbl} Take 1 Tab Univers (MICROGESTI 4-02 by mouth ity of N FE 00:00: daily. [place] .,) 1.5 Branch mg-30 mcg (21)/75 mg (7) tablet LOESTRIN FE Yes [id number] 1{tbl} Take 1 Tab Univers (MICROGESTI 4-02 by mouth ity of N FE 00:00: daily. [place] ,) 1.5 Branch mg-30 mcg (21)/75 mg (7) tablet LOESTRIN FE Yes [id number] 1{tbl} Take 1 Tab [facility] (MICROGESTI 4-02 by mouth ity of N FE 00:00: daily. [place] ,) 1.5 Branch mg-30 mcg (21)/75 mg (7) tablet LOESTRIN FE Yes [id number] 1{tbl} Take 1 Tab [facility] (MICROGESTI 4-02 by mouth ity of N FE 00:00: daily. [place] ,) 1.5 Branch mg-30 mcg (21)/75 mg (7) tablet LOESTRIN FE Yes [id number] 1{tbl} Take 1 Tab [facility] (MICROGESTI 4-02 by mouth ity of N FE 00:00: daily. [place] ,) 1.5 Branch mg-30 mcg (21)/75 mg (7) tablet LOESTRIN FE Yes [id number] 1{tbl} Take 1 Tab [facility] (MICROGESTI 4-02 by mouth ity of N FE 00:00: daily. [place] ,) 1.5 Branch mg-30 mcg (21)/75 mg (7) tablet LOESTRIN FE Yes [id number] 1{tbl} Take 1 Tab [facility] (MICROGESTI 4-02 by mouth ity of N FE 00:00: daily. [place] ,) 1.5 Branch mg-30 mcg (21)/75 mg (7) tablet LOESTRIN FE Yes [id number] 1{tbl} Take 1 Tab [facility] (MICROGESTI 4-02 by mouth ity of N FE 00:00: daily. [place] ,) 1.5 Branch mg-30 mcg (21)/75 mg (7) tablet LOESTRIN FE Yes [id number] 1{tbl} Take 1 Tab [facility] (MICROGESTI 4-02 by mouth ity of N FE 00:00: daily. [place] ,) 1.5 Branch mg-30 mcg (21)/75 mg (7) tablet LOESTRIN FE Yes [id number] 1{tbl} Take 1 Tab [facility] (MICROGESTI 4-02 by mouth ity of N FE 00:00: daily. [place] ,) 1.5 Branch mg-30 mcg (21)/75 mg (7) tablet LOESTRIN FE Yes [id number] 1{tbl} Take 1 Tab [facility] (MICROGESTI 4-02 by mouth ity of N FE 00:00: daily. [place] ,) 1.5 Branch mg-30 mcg (21)/75 mg (7) tablet LOESTRIN FE Yes [id number] 1{tbl} Take 1 Tab [facility] (MICROGESTI 4-02 by mouth ity of N FE 00:00: daily. [place] ,) 1.5 Branch mg-30 mcg (21)/75 mg (7) tablet LOESTRIN FE Yes [id number] 1{tbl} Take 1 Tab [facility] (MICROGESTI 4-02 by mouth ity of N FE 00:00: daily. [place] ,) 1.5 Branch mg-30 mcg (21)/75 mg (7) tablet LOESTRIN FE Yes [id number] 1{tbl} Take 1 Tab [facility] (MICROGESTI 4-02 by mouth ity of N FE 00:00: daily. [place] ,) 1.5 Branch mg-30 mcg (21)/75 mg (7) tablet LOESTRIN FE Yes [id number] 1{tbl} Take 1 Tab [facility] (MICROGESTI 4-02 by mouth ity of N FE 00:00: daily. [place] [facility] ,) 1.5 Branch mg-30 mcg (21)/75 mg (7) tablet LOESTRIN FE Yes [id number] 1{tbl} Take 1 Tab [facility] (MICROGESTI 4-02 by mouth ity of N FE 00:00: daily. [place] ,) 1.5 Branch mg-30 mcg (21)/75 mg (7) tablet LOESTRIN FE Yes [id number] 1{tbl} Take 1 Tab [facility] (MICROGESTI 4-02 by mouth ity of N FE 00:00: daily. [place] ,) 1.5 Branch mg-30 mcg (21)/75 mg (7) tablet LOESTRIN FE Yes [id number] 1{tbl} Take 1 Tab [facility] (MICROGESTI 4-02 by mouth ity of N FE 00:00: daily. [place] ,) 1.5 Branch mg-30 mcg (21)/75 mg (7) tablet LOESTRIN FE Yes [id number] 1{tbl} Take 1 Tab [facility] (MICROGESTI 4-02 by mouth ity of N FE 00:00: daily. [place] ,) 1.5 Branch mg-30 mcg (21)/75 mg (7) tablet LOESTRIN FE Yes [id number] 1{tbl} Take 1 Tab [facility] (MICROGESTI 4-02 by mouth ity of N FE 00:00: daily. [place] ,) 1.5 Branch mg-30 mcg (21)/75 mg (7) tablet LOESTRIN FE Yes [id number] 1{tbl} Take 1 Tab [facility] (MICROGESTI 4-02 by mouth ity of N FE 00:00: daily. [place] ,) 1.5 Branch mg-30 mcg (21)/75 mg (7) tablet LOESTRIN FE Yes [id number] 1{tbl} Take 1 Tab [facility] (MICROGESTI 4-02 by mouth ity of N FE 00:00: daily. [place] ,) 1.5 Branch mg-30 mcg (21)/75 mg (7) tablet LOESTRIN FE Yes [id number] 1{tbl} Take 1 Tab [facility] (MICROGESTI 4-02 by mouth ity of N FE 00:00: daily. [place] ,) 1.5 Branch mg-30 mcg (21)/75 mg (7) tablet LOESTRIN FE Yes [id number] 1{tbl} Take 1 Tab [facility] (MICROGESTI 4-02 by mouth ity of N FE 00:00: daily. [place] ,) 1.5 Branch mg-30 mcg (21)/75 mg (7) tablet LOESTRIN FE Yes [id number] 1{tbl} Take 1 Tab [facility] (MICROGESTI 4-02 by mouth ity of N FE 00:00: daily. [place] ,) 1.5 Branch mg-30 mcg (21)/75 mg (7) tablet LOESTRIN Yes [id number] 1{tbl} Take 1 Tab [facility] (MICROGESTI 4-02 by mouth ity of N FE 00:00: daily. [place] . [facility] ,) 1.5 Branch mg-30 mcg (21)/75 mg (7) tablet LOESTRIN Yes [id number] 1{tbl} Take 1 Tab [facility] (MICROGESTI 4-02 by mouth ity of N FE 00:00: daily. [place] [facility] ,) 1.5 Branch mg-30 mcg (21)/75 mg (7) tablet BUPROPION 2013-06 Yes [id number] 450mg Take 450 Univers HCL 2-11 mg by ity of (WELLBUTRIN 14:24: mouth [place] ORAL) 03 daily. [facility] BUPROPION 2013-06 Yes [id number] 450mg Take 450 Univers HCL 2-11 mg by ity of (WELLBUTRIN 14:24: mouth [place] ORAL) 03 daily. [facility] BUPROPION 2013-06 Yes [id number] 450mg Take 450 [facility] HCL 2-11 mg by ity of (WELLBUTRIN 14:24: mouth [place] ORAL) 03 daily. [facility] BUPROPION 2013-06 Yes [id number] 450mg Take 450 [facility] HCL 2-11 mg by ity of (WELLBUTRIN 14:24: mouth [place] ORAL) 03 daily. [facility] BUPROPION 2013-06 Yes [id number] 450mg Take 450 [facility] HCL 2-11 mg by ity of (WELLBUTRIN 14:24: mouth [place] ORAL) 03 daily. [facility] BUPROPION 2013-06 Yes [id number] 450mg Take 450 Univers HCL 2-11 mg by ity of (WELLBUTRIN 14:24: mouth [place] ORAL) 03 daily. [facility] BUPROPION 2013-06 Yes [id number] 450mg Take 450 [facility] HCL 2-11 mg by ity of (WELLBUTRIN 14:24: mouth [place] ORAL) 03 daily. [facility] BUPROPION 2013-06 Yes [id number] 450mg Take 450 [facility] HCL 2-11 mg by ity of (WELLBUTRIN 14:24: mouth [place] ORAL) 03 daily. [facility] traZODONE 2013-06 Yes 100mg Take 100 Uni vers (DESYREL) 2-11 mg by ity of 100 mg 14:24: mouth at [place] tablet 02 bedtime. [facility] Branch traZODONE 2013-06 Yes 100mg Take 100 Uni vers (DESYREL) 2-11 mg by ity of 100 mg 14:24: mouth at [place] tablet 02 bedtime. [facility] Branch traZODONE 2013-06 Yes 100mg Take 100 Uni vers (DESYREL) 2-11 mg by ity of 100 mg 14:24: mouth at [place] tablet 02 bedtime. [facility] Branch traZODONE 2013-06 Yes 100mg Take 100 Uni vers (DESYREL) 2-11 mg by ity of 100 mg 14:24: mouth at [place] tablet 02 bedtime. [facility] Branch traZODONE 2013-06 Yes 100mg Take 100 Uni vers (DESYREL) 2-11 mg by ity of 100 mg 14:24: mouth at [place] tablet 02 bedtime. [facility] Branch traZODONE 2013-06 Yes 100mg Take 100 Uni vers (DESYREL) 2-11 mg by ity of 100 mg 14:24: mouth at [place] tablet 02 bedtime. [facility] Branch traZODONE 2013-06 Yes 100mg Take 100 Uni vers (DESYREL) 2-11 mg by ity of 100 mg 14:24: mouth at [place] tablet 02 bedtime. [facility] Branch traZODONE 2013-06 Yes 100mg Take 100 Uni vers (DESYREL) 2-11 mg by ity of 100 mg 14:24: mouth at [place] tablet 02 bedtime. [facility] Branch BUPROPION 2013-06 Yes [id number] 450mg Take 450 Univers HCL 2-11 mg by ity of (WELLBUTRIN 08:24: mouth [place] ORAL) 03 daily. [facility] Branch BUPROPION 2013-06 Yes [id number] 450mg Take 450 [facility] HCL 2-11 mg by ity of (WELLBUTRIN 08:24: mouth [place] ORAL) 03 daily. [facility] Branch traZODONE 2013-06 Yes 100mg Take 100 Uni vers (DESYREL) 2-11 mg by ity of 100 mg 08:24: mouth at [place] tablet 02 bedtime. [facility] Branch traZODONE 2013-06 Yes 100mg Take 100 Uni vers (DESYREL) 2-11 mg by ity of 100 mg 08:24: mouth at [place] tablet 02 bedtime. [facility] Branch hydrOXYzine Yes 25mg Take 1 Tab [facility] (ATARAX) 25 6-03 by mouth [facility] MG tablet 00:00: times of 00 daily as Medicin needed for e Itching. hydrOXYzine 0 Yes 25mg Take 1 Tab [facility] (ATARAX) 25 6-03 by mouth [...] Itching. hydrOXYzine Yes 25mg Take 1 Tab [facility] (ATARAX) 25 6-03 by mouth 3 [facility] MG tablet 00:00: times of 00 daily as Medicin needed for e Itching. hydrOXYzine Yes 25mg Take 1 Tab [facility] (ATARAX) 25 6-03 by mouth 3 [facility] MG tablet 00:00: times of 00 daily as Medicin needed for e Itching. hydrOXYzine Yes 25mg Take 1 Tab [facility] (ATARAX) 25 6-03 by mouth 3 [facility] MG tablet 00:00: times of 00 daily as Medicin needed for e Itching. hydrOXYzine 0 Yes 25mg Take 1 Tab [facility] (ATARAX) 25 6-03 by mouth 3 [facility] MG tablet 00:00: times of 00 daily as Medicin needed for e Itching. hydrOXYzine 0 Yes 25mg Take 1 Tab [facility] (ATARAX) 25 6-03 by mouth 3 [facility] MG tablet 00:00: times of 00 daily as Medicin needed for e Itching. albuterol Yes [id number] 1{puff} Inhale 1-2 [facility] HFA 3-02 6 Puffs [facility] (PROVENTIL 00:00: mouth of HFA, 00 every 6 Medicin VENTOLIN hours as e HFA) 108 needed for (90 BASE) Wheezing. MCG/ACT inhaler albuterol Yes [id number] 1{puff} Inhale 1-2 [facility] HFA 3-02 6 Puffs [facility] [employer] (PROVENTIL 00:00: mouth of HFA, 00 every 6 Medicin VENTOLIN hours as e HFA) 108 needed for (90 BASE) Wheezing. MCG/ACT inhaler albuterol Yes [id number] 1{puff} Inhale 1-2 [facility] HFA 3-02 6 [facility]uffs [employer] (PROVENTIL 00:00: mouth of HFA, 00 every 6 Medicin VENTOLIN hours as e HFA) 108 needed for (90 BASE) Wheezing. MCG/ACT inhaler albuterol Yes [id number] 1{puff} Inhale 1-2 [facility] HFA 3-02 6 Puffs [employer] (PROVENTIL 00:00: mouth of HFA, 00 every 6 Medicin VENTOLIN hours as e HFA) 108 needed for (90 BASE) Wheezing. MCG/ACT inhaler albuterol Yes [id number] 1{puff} Inhale 1-2 [facility] HFA 3-02 6 Puffs [employer] (PROVENTIL 00:00: mouth of HFA, 00 every 6 Medicin VENTOLIN hours as e HFA) 108 needed for (90 BASE) Wheezing. MCG/ACT inhaler Immunizations Ordered Filled Date Status Comments Source Immunization Name Immunization Name Pneumococcal 2022-04-05 Completed [facility] ge 20-Valent Conjugate 00:00:00 of Me dicine Vaccine Pneumococcal 2022-04-05 Completed [facility] ge 20-Valent Conjugate 00:00:00 of Me dicine Vaccine Pneumococcal 2022-04-05 Completed [facility] ge 20-Valent Conjugate 00:00:00 of Me dicine Vaccine Pneumococcal 2022-04-05 Completed [facility] ge 20-Valent Conjugate 00:00:00 of Me dicine Vaccine HPV 9-valent 2022-01-16 Completed [facility] ge 00:00:00 of Medicine HPV 9-valent 2022-01-16 Completed [facility] ge 00:00:00 of Medicine HPV 9-valent 2022-01-16 Completed [facility] Colle ge 00:00:00 of Medicine HPV 9-valent 2022-01-16 Completed [facility] 00:00:00 of Medicine HPV 9-valent 2022-01-16 Completed [facility] Colle ge 00:00:00 of Medicine HPV 9-valent 2022-01-16 Completed [facility] 00:00:00 of Medicine HPV 9-valent 2022-01-16 Completed [facility] Colle ge 00:00:00 of Medicine HPV 9-valent 2022-01-16 Completed [facility] Colle ge 00:00:00 of Medicine Moderna .25 2021-09-08 Completed [facility] ege BOOSTER SARS-CoV-2 00:00:00 of Med icine Vaccination Moderna .25 2021-09-08 Completed [facility] ege BOOSTER SARS-CoV-2 00:00:00 of Med icine Vaccination Moderna .25 2021-09-08 Completed [facility] ege BOOSTER SARS-CoV-2 00:00:00 of Med icine Vaccination Moderna .25 2021-09-08 Completed [facility] ege BOOSTER SARS-CoV-2 00:00:00 of Med icine Vaccination Moderna .25 2021-09-08 Completed [facility] ege BOOSTER SARS-CoV-2 00:00:00 of Med icine Vaccination Moderna .25 2021-09-08 Completed [facility] ege BOOSTER SARS-CoV-2 00:00:00 of Med icine Vaccination Moderna .25 2021-09-08 Completed [facility] ege BOOSTER SARS-CoV-2 00:00:00 of Med icine Vaccination Moderna .25 2021-09-08 Completed [facility] e[facility] BOOSTER SARS-CoV-2 00:00:00 of Med icine Vaccination Moderna .25 2021-09-08 Completed [facility] BOOSTER SARS-CoV-2 00:00:00 of Med icine Vaccination Moderna .25 2021-09-08 Completed [facility] ege BOOSTER SARS-CoV-2 00:00:00 of Med icine Vaccination Moderna .25 2021-09-08 Completed [facility] ege BOOSTER SARS-CoV-2 00:00:00 of Med icine Vaccination Moderna .25 2021-09-08 Completed [facility] ege BOOSTER SARS-CoV-2 00:00:00 of Med icine Vaccination Moderna .25 2021-09-08 Completed [facility] BOOSTER SARS-CoV-2 00:00:00 of Med icine Vaccination Moderna .25 2021-09-08 Completed [facility] ege BOOSTER SARS-CoV-2 00:00:00 of Med icine Vaccination Influenza Quad-PF 2021-05-03 Completed [facility] 00:00:00 of Medicine Moderna .25 2021-05-03 Completed [facility]angel[facility] ege BOOSTER SARS-CoV-2 00:00:00 of Med icine Vaccination Influenza Quad-PF 2021-05-03 Completed [facility] 00:00:00 of Medicine Moderna .25 2021-05-03 Completed [facility] ege BOOSTER SARS-CoV-2 00:00:00 of Med icine Vaccination Influenza Quad-PF 2021-05-03 Completed [facility] 00:00:00 of Medicine Moderna .25 2021-05-03 Completed [facility] ege BOOSTER SARS-CoV-2 00:00:00 of Med icine Vaccination Influenza Quad-PF 2021-05-03 Completed [facility] 00:00:00 of Medicine Moderna .25 2021-05-03 Completed [facility] ege BOOSTER SARS-CoV-2 00:00:00 of Med icine Vaccination Influenza Quad-PF 2021-05-03 Completed [facility] 00:00:00 of Medicine Moderna .25 2021-05-03 Completed [facility] ege BOOSTER SARS-CoV-2 00:00:00 of Med icine Vaccination Influenza Quad-PF 2021-05-03 Completed [facility] 00:00:00 of Medicine Moderna .25 2021-05-03 Completed [facility] ege BOOSTER SARS-CoV-2 00:00:00 of Med icine Vaccination Influenza Quad-PF 2021-05-03 Completed [facility] 00:00:00 of Medicine Moderna .25 2021-05-03 Completed [facility] ege BOOSTER SARS-CoV-2 00:00:00 of Med icine Vaccination Influenza Quad-PF 2021-05-03 Completed [facility] 00:00:00 of Medicine Moderna .25 2021-05-03 Completed [facility] ege BOOSTER SARS-CoV-2 00:00:00 of Med icine Vaccination Influenza Quad-PF 2021-05-03 Completed [facility] 00:00:00 of Medicine Moderna .25 2021-05-03 Completed [facility] ege BOOSTER SARS-CoV-2 00:00:00 of Med icine Vaccination Influenza Quad-PF 2021-05-03 Completed [facility] 00:00:00 of Medicine Moderna .25 2021-05-03 Completed [facility] ege Booster Sars-COV-2 00:00:00 of Med icine Vaccination Influenza Quad-PF 2021-05-03 Completed [facility] 00:00:00 of Medicine Moderna .25 2021-05-03 Completed [facility] ege BOOSTER SARS-CoV-2 00:00:00 of Med icine Vaccination Influenza Quad-PF 2021-05-03 Completed [facility] 00:00:00 of Medicine Moderna .25 2021-05-03 Completed [facility] ege BOOSTER SARS-CoV-2 00:00:00 of Med icine Vaccination Influenza Quad-PF 2021-05-03 Completed [facility] 00:00:00 of Medicine Moderna .25 2021-05-03 Completed [facility] ege BOOSTER SARS-CoV-2 00:00:00 of Med icine Vaccination Influenza Quad-PF 2021-05-03 Completed [facility] 00:00:00 of Medicine Moderna .25 2021-05-03 Completed [facility] ege BOOSTER SARS-CoV-2 00:00:00 of Med icine Vaccination Influenza Quad-PF 2021-05-03 Completed [facility] 00:00:00 of Medicine Moderna .25 2021-05-03 Completed [facility] ege BOOSTER SARS-CoV-2 00:00:00 of Med icine Vaccination Influenza Quad-PF 2021-05-03 Completed [facility] 00:00:00 of Medicine Moderna .25 2021-05-03 Completed [facility] ege BOOSTER SARS-CoV-2 00:00:00 of Med icine Vaccination Influenza Quad-PF 2021-05-03 Completed [facility] 00:00:00 of Medicine Moderna .25mL 2021-05-03 Completed [facility] ege BOOSTER SARS-CoV-2 00:00:00 of Med icine Vaccination Moderna SARS-CoV-2 2020-08-17 Completed [facility] Vaccination 00:00:00 of Medicine Moderna SARS-CoV-2 2020-08-17 Completed [facility] Vaccination 00:00:00 of Medicine Moderna .5mL 2020-08-17 Completed [facility] Colle ge SARS-CoV-2 00:00:00 of Medicine Vaccination Moderna .5mL 2020-08-17 Completed [facility] ge SARS-CoV-2 00:00:00 of Medicine Vaccination Moderna .5mL 2020-08-17 Completed [facility] ge SARS-CoV-2 00:00:00 of Medicine Vaccination Moderna .5mL 2020-08-17 Completed [facility] ge SARS-CoV-2 00:00:00 of Medicine Vaccination Moderna .5mL 2020-08-17 Completed [facility] ge SARS-CoV-2 00:00:00 of Medicine Vaccination Moderna .5mL 2020-08-17 Completed [facility] ge SARS-CoV-2 00:00:00 of Medicine Vaccination Moderna .5mL 2020-08-17 Completed [facility] ge SARS-CoV-2 00:00:00 of Medicine Vaccination Moderna SARS-CoV-2 2020-08-17 Completed [facility] Vaccination 00:00:00 of Medicine Moderna SARS-CoV-2 2020-08-17 Completed [facility] Vaccination 00:00:00 of Medicine Moderna SARS-CoV-2 2020-08-17 Completed [facility] Vaccination 00:00:00 of Medicine Moderna SARS-CoV-2 2020-08-17 Completed [facility] Vaccination 00:00:00 of Medicine Moderna SARS-CoV-2 2020-08-17 Completed [facility] Vaccination 00:00:00 of Medicine Moderna SARS-CoV-2 2020-08-17 Completed [facility] Vaccination 00:00:00 of Medicine Moderna SARS-CoV-2 2020-08-17 Completed [facility] Vaccination 00:00:00 of Medicine Moderna SARS-CoV-2 2020-08-17 Completed [facility] Vaccination 00:00:00 of Medicine Moderna SARS-CoV-2 2020-08-17 Completed [facility] Vaccination 00:00:00 of Medicine Moderna SARS-CoV-2 2020-08-17 Completed [facility] Vaccination 00:00:00 of Medicine Moderna SARS-CoV-2 2020-08-17 Completed [facility] Vaccination 00:00:00 of Medicine Moderna SARS-CoV-2 2020-08-17 Completed [facility] Vaccination 00:00:00 of Medicine Moderna SARS-CoV-2 2020-07-16 Completed [facility] Vaccination 00:00:00 of Medicine Moderna SARS-CoV-2 2020-07-16 Completed [facility] Vaccination 00:00:00 of Medicine Moderna .5mL 2020-07-16 Completed [facility] Colle ge SARS-CoV-2 00:00:00 of Medicine Vaccination Moderna .5mL 2020-07-16 Completed [facility] Colle ge SARS-CoV-2 00:00:00 of Medicine Vaccination Moderna .5mL 2020-07-16 [facility]:00:00 of Medicine Vaccination Moderna .5mL 2020-07-16 Completed [facility] ge SARS-CoV-2 00:00:00 of Medicine Vaccination Moderna .5mL 2020-07-16 Com[facility] SARS-CoV-2 00:00:00 of Medicine Vaccination Moderna .5mL 2020-07-16 Completed [facility] Colle ge SARS-CoV-2 00:00:00 of Medicine Vaccination Moderna .5mL 2020-07-16 Completed [facility] ge SARS-CoV-2 00:00:00 of Medicine Vaccination Moderna SARS-CoV-2 2020-07-16 Completed [facility] Vaccination 00:00:00 of Medicine Moderna SARS-CoV-2 2020-07-16 Completed [facility] Vaccination 00:00:00 of Medicine Moderna SARS-CoV-2 2020-07-16 Completed [facility] Vaccination 00:00:00 of Medicine Moderna SARS-CoV-2 2020-07-16 Completed [facility] Vaccination 00:00:00 of Medicine Moderna SARS-CoV-2 2020-07-16 Completed [facility] Vaccination 00:00:00 of Medicine Moderna SARS-CoV-2 2020-07-16 Completed [facility] Vaccination 00:00:00 of Medicine Moderna SARS-CoV-2 2020-07-16 Completed [facility] Vaccination 00:00:00 of Medicine Moderna SARS-CoV-2 2020-07-16 Completed [facility] Vaccination 00:00:00 of Medicine Moderna SARS-CoV-2 2020-07-16 Completed [facility] Vaccination 00:00:00 of Medicine Moderna SARS-CoV-2 2020-07-16 Completed [facility] Vaccination 00:00:00 of Medicine Moderna SARS-CoV-2 2020-07-16 Completed [facility] Vaccination 00:00:00 of Medicine Moderna SARS-CoV-2 2020-07-16 Completed [facility] Vaccination 00:00:00 of Medicine Influenza Quad-PF 2020-05-12 Completed [facility] 00:00:00 of Medicine Influenza Quad-PF 2020-05-12 Completed [facility] 00:00:00 of Medicine Influenza Quad-PF 2020-05-12 Completed [facility] 00:00:00 of Medicine Influenza Quad-PF 2020-05-12 Completed [facility] 00:00:00 of Medicine Influenza Quad-PF 2020-05-12 Completed [facility] 00:00:00 of Medicine Influenza Quad-PF 2020-05-12 Completed [facility] 00:00:00 of Medicine Influenza Quad-PF 2020-05-12 Completed [facility] 00:00:00 of Medicine Influenza Quad-PF 2020-05-12 Completed [facility] 00:00:00 of Medicine Influenza Quad-PF 2020-05-12 Completed [facility] 00:00:00 of Medicine Influenza Quad-PF 2020-05-12 Completed [facility] 00:00:00 of Medicine Influenza Quad-PF 2020-05-12 Completed [facility] 00:00:00 of Medicine Influenza Quad-PF 2020-05-12 Completed [facility] 00:00:00 of Medicine Influenza Quad-PF 2020-05-12 Completed [facility] 00:00:00 of Medicine Influenza Quad-PF 2020-05-12 Completed [facility] 00:00:00 of Medicine Influenza Quad-PF 2020-05-12 Completed [facility] 00:00:00 of Medicine Influenza Quad-PF 2020-05-12 Completed [facility] 00:00:00 of Medicine Influenza Quad-PF 2020-05-12 Completed [facility] 00:00:00 of Medicine Influenza Quad-PF 2020-05-12 Completed [facility] 00:00:00 of Medicine Influenza Quad-PF 2020-05-12 Completed [facility] 00:00:00 of Medicine Influenza Quad-PF 2020-05-12 Completed [facility] 00:00:00 of Medicine Influenza Quad-PF 2020-05-12 Completed [facility] 00:00:00 of Medicine Influenza Quad-PF 2020-05-12 Completed [facility] 00:00:00 of Medicine Influenza Quad-PF 2020-05-12 Completed [facility] 00:00:00 of Medicine Influenza Quad-PF 2020-05-12 Completed [facility] 00:00:00 of Medicine FLUZONE QUAD PF 2016-04-17 Completed [facility] FLUZONE QUAD PF 2016-04-17 Completed [facility] FLUZONE QUAD PF 2016-04-17 Completed [facility] 00:[facility]:00 [facility] FLUZONE QUAD PF 2016-04-17 Completed [facility] 00:[facility]:00 [facility] Influenza Quad-PF 2016-04-17 Completed [facility] 00:00:00 of Medicine Influenza Quad-PF 2016-04-17 Completed [facility] 00:00:00 of Medicine Influenza Quad-PF 2016-04-17 Completed [facility] 00:00:00 of Medicine Influenza Quad-PF 2016-04-17 Completed [facility] 00:00:00 of Medicine Influenza Quad-PF 2016-04-17 Completed [facility] 00:00:00 of Medicine Influenza Quad-PF 2016-04-17 Completed [facility] 00:00:00 of Medicine Influenza Quad-PF 2016-04-17 Completed [facility] 00:00:00 of Medicine Influenza Quad-PF 2016-04-17 Completed [facility] 00:00:00 of Medicine Influenza Quad-PF 2016-04-17 Completed [facility] 00:00:00 of Medicine Influenza Quad-PF 2016-04-17 Completed [facility] 00:00:00 of Medicine Influenza Quad-PF 2016-04-17 Completed [facility] 00:00:00 of Medicine Influenza Quad-PF 2016-04-17 Completed [facility] 00:00:00 of Medicine Influenza Quad-PF 2016-04-17 Completed [facility] 00:00:00 of Medicine Influenza Quad-PF 2016-04-17 Completed [facility] 00:00:00 of Medicine Influenza Quad-PF 2016-04-17 Completed [facility] 00:00:00 of Medicine Influenza Quad-PF 2016-04-17 Completed [facility] 00:00:00 of Medicine Influenza Quad-PF 2016-04-17 Completed [facility] 00:00:00 of Medicine Influenza Quad-PF 2016-04-17 Completed [employer] 00:00:00 of Medicine Influenza Quad-PF 2016-04-17 Completed [facility] 00:00:00 of Medicine Influenza Quad-PF 2016-04-17 Completed [employer] [employer] 00:00:00 of Medicine Influenza Quad-PF 2016-04-17 Completed [facility] [employer] 00:00:00 of Medicine FLUZONE QUAD PF 2016-04-17 Completed [facility] Tdap 2015-10-02 Completed [facility] 00:00:00 of Medicine Tdap 2015-10-02 Completed [employer] 00:00:00 of Medicine Tdap 2015-10-02 Completed [facility] [employer] 00:00:00 of Medicine Tdap 2015-10-02 Completed [facility] [employer] 00:00:00 of Medicine Tdap 2015-10-02 Completed [facility] [employer] 00:00:00 of Medicine Tdap 2015-10-02 Completed [facility] 00:00:00 of Medicine Tdap 2015-10-02 Completed [facility] [employer] 00:00:00 of Medicine Tdap 2015-10-02 Completed [facility] 00:00:00 of Medicine Tdap 2015-10-02 Completed [facility] 00:00:00 of Medicine Tdap 2015-10-02 Completed [facility] 00:00:00 of Medicine Tdap 2015-10-02 Completed [facility] [employer] 00:00:00 of Medicine Tdap 2015-10-02 Completed [employer] [employer] 00:00:00 of Medicine Tdap 2015-10-02 Completed [facility] 00:00:00 of Medicine Tdap 2015-10-02 Completed [employer] 00:00:00 of Medicine Tdap 2015-10-02 Completed [employer] 00:00:00 of Medicine Tdap 2015-10-02 Completed [facility] 00:00:00 of Medicine Tdap 2015-10-02 Completed [employer] [employer] 00:00:00 of Medicine Tdap 2015-10-02 Completed [employer] 00:00:00 of Medicine Tdap 2015-10-02 Completed [employer] [employer] 00:00:00 of Medicine Tdap 2015-10-02 Completed [employer] [employer] 00:00:00 of Medicine Tdap 2015-10-02 Completed [facility] 00:00:00 of Medicine Tdap 2015-10-02 Completed [facility] 00:00:00 of Medicine Tdap 2015-10-02 Completed [employer] [employer] 00:00:00 of Medicine Tdap 2015-10-02 Completed [facility] 00:00:00 of Medicine Pneumococcal 2015-04-13 Completed [facility] 00:00:00 of Medicine Influenza (whole) 2015-04-13 Completed [facility] 00:00:00 of Medicine Pneumococcal 2015-04-13 Completed [facility] 00:00:00 of Medicine [facility]whole[facility] 2015-04-13 [facility] Pneum[facility] 2015-04-13 Completed [facility] 00:00:00 of Medicine Influ[facility] (whole[facility] 2015-04-13 [facility] Pneumococcal 2015-04-13 Completed [facility] 00:00:00 of Medicine Influenza (whole) 2015-04-13 Completed [facility] 00:00:00 of Medicine Pneumococcal 2015-04-13 Completed [facility] 00:00:00 of Medicine Influenza (whole) 2015-04-13 Completed [facility] 00:00:00 of Medicine Pneumococcal 2015-04-13 Completed [facility] 00:00:00 of Medicine Influenza (whole) 2015-04-13 [facility] Pneumococcal 2015-04-13 Completed [facility] 00:00:00 of Medicine Influenza (whole) 2015-04-13 Completed [facility] 00:00:00 of Medicine Pneumococcal 2015-04-13 Completed [facility] 00:00:00 of Medicine Influenza (whole) 2015-04-13 Completed [facility] [employer] 00:00:00 of Medicine Pneumococcal 2015-04-13 Completed [facility] 00:00:00 of Medicine Influenza (whole) 2015-04-13 [facility] Pneumococcal 2015-04-13 Completed [facility] 00:00:00 of Medicine Influenza (whole) 2015-04-13 [facility] Pneumococcal 2015-04-13 Completed [facility] 00:00:00 of Medicine Influenza (whole) 2015-04-13 [facility] Pneumococcal 2015-04-13 Completed [facility] 00:00:00 of Medicine Influenza (whole) 2015-04-13 Completed [facility] 00:00:00 of Medicine Pneumococcal 2015-04-13 Completed [facility] 00:00:00 of Medicine Influenza (whole) 2015-04-13 Completed [facility] 00:00:00 of Medicine Pneumococcal 2015-04-13 Completed [facility] 00:00:00 of Medicine Influenza (whole) 2015-04-13 Completed [facility] 00:00:00 of Medicine Pneumococcal 2015-04-13 Completed [facility] 00:00:00 of Medicine Influenza (whole) 2015-04-13 Completed [facility] 00:00:00 of Medicine Pneumococcal 2015-04-13 Completed [facility] 00:00:00 of Medicine Influenza (whole) 2015-04-13 Completed [facility] 00:00:00 of Medicine Pneumococcal 2015-04-13 Completed [facility] 00:00:00 of Medicine Influenza (whole) 2015-04-13 Completed [facility] 00:00:00 of Medicine Pneumococcal 2015-04-13 Completed [facility] 00:00:00 of Medicine Influenza (whole) 2015-04-13 Completed [facility] 00:00:00 of Medicine Pneumococcal 2015-04-13 Completed [facility] 00:00:00 of Medicine Influenza (whole) 2015-04-13 Completed [facility] 00:00:00 of Medicine Pneumococcal 2015-04-13 Completed [facility] 00:00:00 of Medicine Influenza (whole) 2015-04-13 Completed [facility] 00:00:00 of Medicine Pneumococcal 2015-04-13 Completed [facility] 00:00:00 of Medicine Influenza (whole) 2015-04-13 Completed [facility] 00:00:00 of Medicine Pneumococcal 2015-04-13 Completed [facility] 00:00:00 of Medicine Influenza (whole) 2015-04-13 Completed [facility] 00:00:00 of Medicine Pneumococcal 2015-04-13 Completed [facility] 00:00:00 of Medicine Influenza (whole) 2015-04-13 Completed [facility] 00:00:00 of Medicine Pneumococcal 2015-04-13 Completed [facility] 00:00:00 of Medicine Influenza (whole) 2015-04-13 Completed [employer] [employer] 00:00:00 of Medicine Tdap 2015-01-14 Completed [facility] 00:00:00 of Medicine Tdap 2015-01-14 Completed [facility] 00:00:00 of Medicine Tdap 2015-01-14 Completed [facility] 00:00:00 of Medicine Tdap 2015-01-14 Completed [facility] 00:00:00 of Medicine Tdap 2015-01-14 Completed [facility] 00:00:00 of Medicine Tdap 2015-01-14 Completed [facility] 00:00:00 of Medicine Tdap 2015-01-14 Completed [facility] 00:00:00 of Medicine Tdap 2015-01-14 Completed [facility] 00:00:00 of Medicine Tdap 2015-01-14 Completed [facility] 00:00:00 of Medicine Tdap 2015-01-14 Completed [facility] 00:00:00 of Medicine Tdap 2015-01-14 Completed [facility] 00:00:00 of Medicine Tdap 2015-01-14 Completed [facility] 00:00:00 of Medicine Tdap 2015-01-14 Completed [facility] 00:00:00 of Medicine Tdap 2015-01-14 Completed [facility] 00:00:00 of Medicine Tdap 2015-01-14 Completed [facility] 00:00:00 of Medicine Tdap 2015-01-14 Completed [facility] 00:00:00 of Medicine Tdap 2015-01-14 Completed [facility] 00:00:00 of Medicine Tdap 2015-01-14 Completed [facility] 00:00:00 of Medicine Tdap 2015-01-14 Completed [facility] 00:00:00 of Medicine Tdap 2015-01-14 Completed [facility] 00:00:00 of Medicine Tdap 2015-01-14 Completed [facility] 00:00:00 of Medicine Tdap 2015-01-14 Completed [facility] 00:00:00 of Medicine Tdap 2015-01-14 Completed [facility] 00:00:00 of Medicine Tdap 2015-01-14 Completed [facility] 00:00:00 of Medicine Hep A/Hep B 2012-07-17 Completed [facility] 00:00:00 of Medicine Hep A/Hep B 2012-07-17 Completed [facility] 00:00:00 of Medicine Hep A/Hep B 2012-07-17 Completed [facility] 00:00:00 of Medicine Hep A/Hep B 2012-07-17 Completed [facility] 00:00:00 of Medicine Hep A/Hep B 2012-07-17 Completed [facility] 00:00:00 of Medicine Hep A/Hep B 2012-07-17 Completed [facility] 00:00:00 of Medicine Hep A/Hep B 2012-07-17 Completed [facility] 00:00:00 of Medicine Hep A/Hep B 2012-07-17 Completed [facility] 00:00:00 of Medicine Hep A/Hep B 2012-07-17 Completed [facility] 00:00:00 of Medicine Hep A/Hep B 2012-07-17 Completed [facility] 00:00:00 of Medicine Hep A/Hep B 2012-07-17 Completed [facility] [employer] [facility] 00:00:00 of Medicine Hep A/Hep B 2012-07-17 Completed [facility] 00:00:00 of Medicine Hep A/Hep B 2012-07-17 Completed [facility] 00:00:00 of Medicine Hep A/Hep B 2012-07-17 Completed [facility] 00:00:00 of Medicine Hep A/Hep B 2012-07-17 Completed [facility] 00:00:00 of Medicine Hep A/Hep B 2012-07-17 Completed [facility] 00:00:00 of Medicine Hep A/Hep B 2012-07-17 Completed [facility] 00:00:00 of Medicine Hep A/Hep B 2012-07-17 Completed [facility] 00:00:00 of Medicine Hep A/Hep B 2012-07-17 Completed [facility] 00:00:00 of Medicine Hep A/Hep B 2012-07-17 Completed [facility] 00:00:00 of Medicine Hep A/Hep B 2012-07-17 Completed [facility] 00:00:00 of Medicine Hep A/Hep B 2012-07-17 Completed [facility] [employer] [facility] 00:00:00 of Medicine Hep A/Hep B 2012-07-17 Completed [facility] 00:00:00 of Medicine Hep A/Hep B 2012-07-17 Completed [facility] 00:00:00 of Medicine Hep A/Hep B 2012-02-15 Completed [facility] 00:00:00 of Medicine Hep A/Hep B 2012-02-15 Completed [facility] 00:00:00 of Medicine Hep A/Hep B 2012-02-15 Completed [facility] 00:00:00 of Medicine Hep A/Hep B 2012-02-15 Completed [facility] 00:00:00 of Medicine Hep A/Hep B 2012-02-15 Completed [facility] 00:00:00 of Medicine Hep A/Hep B 2012-02-15 Completed [facility] 00:00:00 of Medicine Hep A/Hep B 2012-02-15 Completed [facility] 00:00:00 of Medicine Hep A/Hep B 2012-02-15 Completed [facility] 00:00:00 of Medicine Hep A/Hep B 2012-02-15 Completed [facility] 00:00:00 of Medicine Hep A/Hep B 2012-02-15 Completed [facility] 00:00:00 of Medicine Hep A/Hep B 2012-02-15 Completed [facility] 00:00:00 of Medicine Hep A/Hep B 2012-02-15 Completed [facility] 00:00:00 of Medicine Hep A/Hep B 2012-02-15 Completed [facility] 00:00:00 of Medicine Hep A/Hep B 2012-02-15 Completed [facility] 00:00:00 of Medicine Hep A/Hep B 2012-02-15 Completed [facility] 00:00:00 of Medicine Hep A/Hep B 2012-02-15 Completed [facility] 00:00:00 of Medicine Hep A/Hep B 2012-02-15 Completed [facility] 00:00:00 of Medicine Hep A/Hep B 2012-02-15 Completed [facility] 00:00:00 of Medicine Hep A/Hep B 2012-02-15 Completed [facility] 00:00:00 of Medicine Hep A/Hep B 2012-02-15 Completed [facility] 00:00:00 of Medicine Hep A/Hep B 2012-02-15 Completed [facility] 00:00:00 of Medicine Hep A/Hep B 2012-02-15 Completed [facility] [employer] [facility] 00:00:00 [facility] Medicine Hep [facility] 2012-02-15 [facility]Hep B 2012-02-15 Com[facility] 00:[facility] Hep A/Hep B 2011-12-31 Completed [facility] 00[facility]:00 of Medicine Tdap 2011-12-31 Completed [facility] 00:00:00 of Medicine Hep A/Hep B 2011-12-31 Completed [facility] 00[facility]00:00 of Medicine Tdap 2011-12-31 Completed [facility] 00:00:00 of Medicine Hep A/Hep B 2011-12-31 Completed [facility] 00[facility]00:00 of Medicine Tdap 2011-12-31 Completed [facility] 00:00:00 of Medicine Hep A/Hep B 2011-12-31 Completed [facility] 00[facility]00:00 of Medicine Tdap 2011-12-31 Completed [facility] 00:00:00 of Medicine Hep A/Hep B 2011-12-31 Completed [facility] 00[facility]00:00 of Medicine Tdap 2011-12-31 Completed [facility] 00:00:00 of Medicine Hep A/Hep B 2011-12-31 Completed [facility] 00:00:00 of Medicine Tdap 2011-12-31 Completed [facility] 00:00:00 of Medicine Hep A/Hep B 2011-12-31 Completed [facility] 00[facility]00:00 of Medicine Tdap 2011-12-31 Completed [facility] 00:00:00 of Medicine Hep A/Hep B 2011-12-31 Completed [facility] 00[facility]00:00 of Medicine Tdap 2011-12-31 Completed [facility] 00:00:00 of Medicine Hep A/Hep B 2011-12-31 Completed [facility] 00[facility]00:00 of Medicine Tdap 2011-12-31 Completed [facility] 00:00:00 of Medicine Hep A/Hep B 2011-12-31 Completed [facility] 00[facility]00:00 of Medicine Tdap 2011-12-31 Completed [facility] 00:00:00 of Medicine Hep A/Hep B 2011-12-31 Completed [facility] 00:00:00 of Medicine Tdap 2011-12-31 Completed [facility] 00:00:00 of Medicine Hep A/Hep B 2011-12-31 Completed [facility] 00:00:00 of Medicine Tdap 2011-12-31 Completed [facility] 00:00:00 of Medicine Hep A/Hep B 2011-12-31 Completed [facility] 00:00:00 of Medicine Tdap 2011-12-31 Completed [facility] 00:00:00 of Medicine Hep A/Hep B 2011-12-31 Completed [facility] 00[facility]00:00 of Medicine Tdap 2011-12-31 Completed [facility] 00:00:00 of Medicine Hep A/Hep B 2011-12-31 Completed [facility] 00:00:00 of Medicine Tdap 2011-12-31 Completed [facility] 00:00:00 of Medicine Hep A/Hep B 2011-12-31 Completed [facility] 00[facility]00:00 of Medicine Tdap 2011-12-31 Completed [facility] 00:00:00 of Medicine Hep A/Hep B 2011-12-31 Completed [facility] 00:00:00 of Medicine Tdap 2011-12-31 Completed [facility] 00:00:00 of Medicine Hep A/Hep B 2011-12-31 Completed [facility] 00:00:00 of Medicine Tdap 2011-12-31 Completed [facility] 00:00:00 of Medicine Hep A/Hep B 2011-12-31 Completed [facility] 00[facility]00:00 of Medicine Tdap 2011-12-31 Completed [facility] 00:00:00 of Medicine Hep A/Hep B 2011-12-31 Completed [facility] 00:00:00 of Medicine Hep A/Hep B 2011-12-31 Completed [facility] 00:00:00 of Medicine Tdap 2011-12-31 Completed [facility] 00:00:00 of Medicine Tdap 2011-12-31 Completed [facility] 00:00:00 of Medicine Hep A/Hep B 2011-12-31 Completed [facility] 00:[facility] of Medicine Tdap 2011-12-31 Completed [facility] 00:00:00 of Medicine Hep A/Hep B 2011-12-31 [facility] 2011-12-31 Completed [facility] 00:00:00 of Medicine Hep A/Hep B 2011-12-31 Completed [facility] 00:00:00 of Medicine Tdap 2011-12-31 Completed [facility] 00:00:00 of Medicine PPD Test 2011-12-28 Completed [facility] 00:00:00 of Medicine PPD Test 2011-12-28 Completed [facility] 00:00:00 of Medicine PPD Test 2011-12-28 Completed [facility] 00:00:00 of Medicine PPD Test 2011-12-28 Completed [facility] 00:00:00 of Medicine PPD Test 2011-12-28 Completed [facility] 00:00:00 of Medicine PPD Test 2011-12-28 Completed [facility] 00:00:00 of Medicine PPD Test 2011-12-28 Completed [facility] 00:00:00 of Medicine PPD Test 2011-12-28 Completed [facility] 00:00:00 of Medicine PPD Test 2011-12-28 Completed [facility] 00:00:00 of Medicine PPD Test 2011-12-28 Completed [facility] 00:00:00 of Medicine PPD Test 2011-12-28 Completed [facility] 00:00:00 of Medicine PPD Test 2011-12-28 Completed [facility] 00:00:00 of Medicine PPD Test 2011-12-28 Completed [facility] 00:00:00 of Medicine PPD Test 2011-12-28 Completed [facility] 00:00:00 of Medicine PPD Test 2011-12-28 Completed [facility] 00:00:00 of Medicine PPD Test 2011-12-28 Completed [facility] 00:00:00 of Medicine PPD Test 2011-12-28 Completed [facility] 00:00:00 of Medicine PPD Test 2011-12-28 Completed [facility] 00:00:00 of Medicine PPD Test 2011-12-28 Completed [facility] 00:00:00 of Medicine PPD Test 2011-12-28 Completed [facility] 00:00:00 of Medicine PPD Test 2011-12-28 Completed [facility] 00:00:00 of Medicine PPD Test 2011-12-28 Completed [facility] 00:00:00 of Medicine PPD Test 2011-12-28 Completed [facility] 00:00:00 of Medicine PPD Test 2011-12-28 Completed [facility] 00:00:00 of Medicine TD, NOS 2011-10-[address] [facility] 00:00:00 [facility] TD, NOS 2011-10-[address] [facility] 00:00:00 [facility] TD, NOS 2011-10-16 [...] TD, NOS 2011-10-16 Completed [facility] 00:[facility]00 [facility] TD, NOS 2011-10-16 Completed [facility] 00[facility]00: [facility] TD, NOS 2011-10-16 Completed [facility] 00:00:00 [facility] TD, NOS 2011-10-16 Completed [facility] 00:00:00 [facility] TD, NOS 2011-10-16 Completed [facility] 00:00:00 [facility] TD, NOS 2011-10-16 Completed [facility] 00[facility]00:00 [facility] TD, NOS 2011-10-16 Completed [facility] 00:00:00 [facility] Td 2011-10-16 Completed [facility] 00[facility]00:00 of Medicine Td 2011-10-16 Completed [facility] 00:00:00 of Medicine Td 2011-10-16 Completed [employer] 00:00:00 of Medicine Td 2011-10-16 Completed [facility] 00:00:00 of Medicine Td 2011-10-16 Completed [facility] 00:00:00 of Medicine Td 2011-10-16 Completed [facility] 00:00:00 of Medicine Td 2011-10-16 Completed [facility] 00:00:00 of Medicine Td 2011-10-16 Completed [employer] 00:00:00 of Medicine Td 2011-10-16 Completed [facility] 00:00:00 of Medicine Td 2011-10-16 Completed [facility] 00:00:00 of Medicine Td 2011-10-16 Completed [employer] 00:00:00 of Medicine Td 2011-10-16 Completed [employer] 00:00:00 of Medicine Td 2011-10-16 Completed [facility] 00:00:00 of Medicine Td 2011-10-16 Completed [employer] 00:00:00 of Medicine Td 2011-10-16 Completed [facility] 00:00:00 of Medicine Td 2011-10-16 Completed [employer] 00:00:00 of Medicine Td 2011-10-16 Completed [facility] 00:00:00 of Medicine Td 2011-10-16 Completed [employer] 00:00:00 of Medicine Td 2011-10-16 Completed [employer] 00:00:00 of Medicine Td 2011-10-16 Completed [employer] 00:00:00 of Medicine Td 2011-10-16 Completed [employer] 00:00:00 of Medicine Tdap Unknown Completed [facility] V[facility] Sign[facility] Vital Name Observation Time Observation Value Comments Source HEIGHT 2022-03-08 175.3 cm 13:09:00 WEIGHT 2022-03-08 121.564 kg 13:09:00 HEIGHT 2021-12-13 175.3 cm 14:57:00 WEIGHT 2021-12-13 127.007 kg 14:57:00 HEIGHT 2020-02-10 175.3 cm 00:00:00 WEIGHT 2020-02-10 182.89 kg 00:00:00 Systolic blood 2022-07-19 122 mm[Hg] [facility] 17:53:00 [facility] Diastolic blood 2022-07-19 73 mm[Hg] [place] o f pressure 17:53:00 [facility] Heart rate 2022-07-19 69 /min [facility] 17:53:00 [facility] Body temperature 2022-07-[address] [facility] 17:53:00 [facility] [facility] Body height 2022-07-[address] [facility] 17:53:00 [facility] Body weight 2022-07-[address] [facility] 17:53:00 [facility] BMI 2022-07-19 33.82 kg/m2 [facility] 17:53:00 [facility] HEIGHT 2022-07-07 175.3 cm 22:19:51 WEIGHT 2022-07-07 [...] kg 11:09:00 Body height 2022-06-[address] [facility] 15:41:00 [facility] Body weight 2022-06-[address] [facility] 15:41:00 [facility] BMI 2022-06-29 35.25 kg/m2 [facility] 15:41:00 [facility] HEIGHT 2022-06-20 175.3 cm 06:24:00 WEIGHT 2022-06-20 [...] temperature 2022-06-15 36.78 Debra [facility] 22:38:00 [facility] Body height 2022-06-15 175.3 cm [facility] 22:38:00 [facility] Body weight 2022-06-15 114.76 kg [facility] 22:38:00 [facility] BMI 2022-06-15 37.36 kg/m2 [facility] 22:38:00 [facility] Systolic blood 2022-06-11 113 mm[Hg] [facility] pressure 19:02:00 [facility] Diastolic blood 2022-06-11 66 mm[Hg] [facility] pressure 19:02:00 [facility] Heart rate 2022-06-11 84 /min [facility] 19:02:00 [facility] Body height 2022-06-11 175.3 cm [facility] 19:02:00 [facility] Body weight 2022-06-[address] [facility] 19:02:00 [facility] BMI 2022-06-11 38.25 kg/m2 [facility] 19:02:00 [facility] Oxygen saturation 2022-06-11 98 /min [facility] Arterial blood 19:02:00 [facility] by Pulse oximetry [place] HEIGHT 2022-05-07 175.3 cm 11:45:00 WEIGHT 2022-05-07 [...] kg 12:17:00 Systolic blood 2022-04-30 122 mm[Hg] [facility] pressure 15:17:00 of Medicine Diastolic blood 2022-04-30 76 mm[Hg] [facility] pressure 15:17:00 of Medicine Heart rate 2022-04-30 76 /min [facility] 15:17:00 of Medicine Body height 2022-04-30 175.3 cm [facility] 15:17:00 of Medicine Body weight 2022-04-30 118.389 kg [facility] 15:17:00 of Medicine BMI 2022-04-30 38.54 kg/m2 [facility] 15:17:00 of Medicine Systolic blood 2022-04-24 122 mm[Hg] [facility] pressure 18:12:00 of Medicine Diastolic blood 2022-04-24 83 mm[Hg] [facility] pressure 18:12:00 of Medicine Heart rate 2022-04-24 73 /min [facility] 18:12:00 of Medicine Body height 2022-04-24 175.3 cm [facility] 18:12:00 of Medicine Body weight 2022-04-24 118.389 kg [facility] 18:12:00 of Medicine BMI 2022-04-24 38.54 kg/m2 [facility] 18:12:00 of Medicine Systolic blood 2022-04-05 131 mm[Hg] [facility] pressure 19:28:00 of Medicine Diastolic blood 2022-04-05 81 mm[Hg] [facility] pressure 19:28:00 of Medicine Heart rate 2022-04-05 65 /min [facility] 19:28:00 of Medicine Body temperature 2022-04-05 36.67 Debra [facility] ege 19:28:00 of Medicine Respiratory rate 2022-04-05 16 /min [facility] ege 19:28:00 of Medicine Body height 2022-04-05 175.3 cm [facility] 19:28:00 of Medicine Body weight 2022-04-05 118.389 kg [facility] 19:28:00 of Medicine BMI 2022-04-05 38.54 kg/m2 [facility] 19:28:00 of Medicine Oxygen saturation 2022-04-05 98 /min [facility] lege in Arterial blood 19:28:00 of Medicin e by Pulse oximetry Systolic blood 2022-04-03 122 mm[Hg] [facility] pressure 18:58:00 [facility] Diastolic blood 2022-04-03 79 mm[Hg] [facility] pressure 18:58:00 [facility] Heart rate 2022-04-03 79 /min [facility] 18:58:00 [facility] Body height 2022-04-03 175.3 cm [facility] 18:58:00 [facility] Body weight 2022-04-03 120.6 kg [facility] 18:58:00 [facility] BMI 2022-04-03 39.26 kg/m2 University 18:58:00 [facility] Oxygen saturation 2022-04-03 96 /min [facility] in Arterial blood 18:58:00 [facility]ler by Pulse oximetry Branch Body weight 2022-03-30 118.842 kg [facility] 15:54:00 of Medicine BMI 2022-03-30 38.69 kg/m2 [facility] 15:54:00 of Medicine Systolic blood 2022-03-12 134 mm[Hg] [facility] pressure 18:45:00 of Medicine Diastolic blood 2022-03-12 68 mm[Hg] [facility] pressure 18:45:00 of Medicine Body height 2022-03-12 175.3 cm [facility] 18:45:00 of Medicine Body weight 2022-03-12 121.564 kg [facility] 18:45:00 of Medicine BMI 2022-03-12 39.58 kg/m2 [facility] 18:45:00 of Medicine HEIGHT 2022-03-07 175.3 cm 16:23:00 WEIGHT 2022-03-07 121.564 kg 16:23:00 HEIGHT 2022-03-07 175.3 cm 16:23:00 WEIGHT 2022-03-07 121.564 kg 16:23:00 HEIGHT 2022-03-07 175.3 cm 16:23:00 WEIGHT 2022-03-07 121.564 kg 16:23:00 Systolic blood 2022-03-07 145 mm[Hg] [facility] pressure 16:55:00 of Medicine Diastolic blood 2022-03-07 81 mm[Hg] [facility] pressure 16:55:00 of Medicine Heart rate 2022-03-07 89 /min [facility] 16:55:00 of Medicine Body temperature 2022-03-07 36.83 Debra [facility] De[facility]o ege 16:55:00 of Medicine Body height 2022-03-07 175.3 cm [facility] 16:55:00 of Medicine Body weight 2022-03-07 121.927 kg [facility] 16:55:00 of Medicine BMI 2022-03-07 39.69 kg/m2 [facility] 16:55:00 of Medicine Oxygen saturation 2022-03-07 96 /min [facility] in Arterial blood 16:55:00 of Medicin e by Pulse oximetry Systolic blood 2022-03-06 126 mm[Hg] [facility] pressure 18:59:00 of Medicine Diastolic blood 2022-03-06 80 mm[Hg] [facility] pressure 18:59:00 of Medicine Heart rate 2022-03-06 84 /min [facility] 18:59:00 of Medicine Body temperature 2022-03-06 36.67 Debra [facility] ege 18:59:00 of Medicine Respiratory rate 2022-03-06 16 /min [facility] ege 18:59:00 of Medicine Body height 2022-03-06 175.3 cm [facility] 18:59:00 of Medicine Body weight 2022-03-06 122.925 kg [facility] 18:59:00 of Medicine BMI 2022-03-06 40.02 kg/m2 [facility] 18:59:00 of Medicine Oxygen saturation 2022-03-06 98 /min [facility] in Arterial blood 18:59:00 of Medicin e by Pulse oximetry Systolic blood 2022-02-21 126 mm[Hg] [facility] pressure 16:54:00 of Medicine Diastolic blood 2022-02-21 81 mm[Hg] [facility] pressure 16:54:00 of Medicine Heart rate 2022-02-21 90 /min [facility] 16:54:00 of Medicine Body temperature 2022-02-21 37 Debra [facility] ege 16:54:00 of Medicine Respiratory rate 2022-02-21 18 /min [facility] ege 16:54:00 of Medicine Body height 2022-02-21 175.3 cm [facility] 16:54:00 of Medicine Body weight 2022-02-21 122.925 kg [facility] 16:54:00 of Medicine BMI 2022-02-21 40.02 kg/m2 [facility] 16:54:00 of Medicine Oxygen saturation 2022-02-21 95 /min [facility] in Arterial blood 16:54:00 of Medicin e by Pulse oximetry Systolic blood 2022-01-24 121 mm[Hg] [facility] pressure 16:11:00 of Medicine Diastolic blood 2022-01-24 74 mm[Hg] [facility] pressure 16:11:00 of Medicine Heart rate 2022-01-24 88 /min [facility] 16:11:00 of Medicine Body temperature 2022-01-24 36.17 Debra [facility] 16:11:00 of Medicine Body height 2022-01-24 175.3 cm [facility] 16:11:00 of Medicine Body weight 2022-01-24 125.646 kg [facility] 16:11:00 of Medicine BMI 2022-01-24 40.91 kg/m2 [facility] 16:11:00 of Medicine Body height 2022-01-23 175.3 cm [facility] 14:36:00 of Medicine Body weight 2022-01-23 125.646 kg [facility] 14:36:00 of Medicine BMI 2022-01-23 40.91 kg/m2 [facility] 14:36:00 of Medicine Systolic blood 2022-01-22 110 mm[Hg] [facility] pressure 21:16:00 of Medicine Diastolic blood 2022-01-22 60 mm[Hg] [facility] pressure 21:16:00 of Medicine Heart rate 2022-01-22 85 /min [facility] 21:16:00 of Medicine Respiratory rate 2022-01-22 22 /min [facility] ege 21:16:00 of Medicine Systolic blood 2021-11-23 120 mm[Hg] [facility] pressure 18:06:00 of Medicine Diastolic blood 2021-11-23 81 mm[Hg] [facility] pressure 18:06:00 of Medicine Heart rate 2021-11-23 95 /min [facility] 18:06:00 of Medicine Body temperature 2021-11-23 37 Debra [facility] ege 18:06:00 of Medicine Respiratory rate 2021-11-23 16 /min [facility] 18:06:00 of Medicine Body height 2021-11-23 175.3 cm [facility] 18:06:00 of Medicine Body weight 2021-11-23 128.822 kg [facility] 18:06:00 of Medicine BMI 2021-11-23 41.94 kg/m2 [facility] 18:06:00 of Medicine Oxygen saturation 2021-11-23 96 /min [facility] in Arterial blood 18:06:00 of Medicin e by Pulse oximetry HEIGHT 2021-10-03 175.3 cm 18:19:00 WEIGHT 2021-10-03 126.1 kg 18:19:00 HEIGHT 2021-10-03 175.3 cm 18:19:00 WEIGHT 2021-10-03 126.1 kg 18:19:00 HEIGHT 2021-10-03 175.3 cm 18:19:00 WEIGHT 2021-10-03 126.1 kg 18:19:00 Systolic blood 2021-09-08 137 mm[Hg] [facility] pressure 18:41:00 of Medicine Diastolic blood 2021-09-08 87 mm[Hg] [facility] pressure 18:41:00 of Medicine Heart rate 2021-09-08 73 /min [facility] 18:41:00 of Medicine Body temperature 2021-09-08 36.28 Debra [facility] 18:41:00 of Medicine Respiratory rate 2021-09-08 16 /min [facility] 18:41:00 of Medicine Body height 2021-09-08 175.3 cm [facility] 18:41:00 of Medicine Body weight 2021-09-08 129.003 kg [facility] 18:41:00 of Medicine BMI 2021-09-08 42.00 kg/m2 [facility] 18:41:00 of Medicine Oxygen saturation 2021-09-08 100 /min [facility] in Arterial blood 18:41:00 of Medicin e by Pulse oximetry Systolic blood 2021-06-27 113 mm[Hg] [facility] pressure 17:35:00 of Medicine Diastolic blood 2021-06-27 77 mm[Hg] [facility] pressure 17:35:00 of Medicine Heart rate 2021-06-27 89 /min [facility] 17:35:00 of Medicine Body temperature 2021-06-27 37.28 Debra [facility] 17:35:00 of Medicine Body height 2021-06-27 175.3 cm [facility] 17:35:00 of Medicine Body weight 2021-06-27 121.564 kg [facility] 17:35:00 of Medicine BMI 2021-06-27 39.58 kg/m2 [facility] 17:35:00 of Medicine Systolic blood 2021-05-03 104 mm[Hg] [facility] pressure 17:27:00 of Medicine Diastolic blood 2021-05-03 66 mm[Hg] [facility] pressure 17:27:00 of Medicine Heart rate 2021-05-03 80 /min [facility] 17:27:00 of Medicine Body temperature 2021-05-03 36.61 Debra [facility] 17:27:00 of Medicine Respiratory rate 2021-05-03 16 /min [facility] 17:27:00 of Medicine Body height 2021-05-03 175.3 cm [facility] 17:27:00 of Medicine Body weight 2021-05-03 121.791 kg [facility] 17:27:00 of Medicine BMI 2021-05-03 39.65 kg/m2 [facility] 17:27:00 of Medicine Oxygen saturation 2021-05-03 98 /min [facility] in Arterial blood 17:27:00 of Medicin e by Pulse oximetry Systolic blood 2021-03-03 112 mm[Hg] [facility] pressure 18:53:00 of Medicine Diastolic blood 2021-03-03 77 mm[Hg] [facility] pressure 18:53:00 of Medicine Heart rate 2021-03-03 91 /min [facility] 18:53:00 of Medicine Body temperature 2021-03-03 36.67 Debra [facility] 18:53:00 of Medicine Body height 2021-03-03 170.2 cm [facility] 18:53:00 of Medicine Body weight 2021-03-03 130.182 kg [facility] 18:53:00 of Medicine BMI 2021-03-03 44.95 kg/m2 [facility] 18:53:00 of Medicine HEIGHT 2021-01-03 175.3 cm 13:54:00 WEIGHT 2021-01-03 126.2 kg 13:54:00 Systolic blood 2020-12-02 105 mm[Hg] [facility] pressure 16:35:00 of Medicine Diastolic blood 2020-12-02 72 mm[Hg] [facility] pressure 16:35:00 of Medicine Heart rate 2020-12-02 71 /min [facility] 16:35:00 of Medicine Respiratory rate 2020-12-02 16 /min [facility] 16:35:00 of Medicine Body height 2020-12-02 170.2 cm [facility] 16:35:00 of Medicine Body weight 2020-12-02 130.182 kg [facility] 16:35:00 of Medicine BMI 2020-12-02 44.95 kg/m2 [facility] 16:35:00 of Medicine Oxygen saturation 2020-12-02 97 /min [facility] in Arterial blood 16:35:00 of Medicin e by Pulse oximetry Systolic blood 2020-06-14 117 mm[Hg] [facility] pressure 20:25:00 of Medicine Diastolic blood 2020-06-14 71 mm[Hg] [facility] pressure 20:25:00 of Medicine Heart rate 2020-06-14 93 /min [facility] 20:25:00 of Medicine Body temperature 2020-06-14 37 Debra [facility] 20:25:00 of Medicine Body height 2020-06-14 170.2 cm [facility] 20:25:00 of Medicine Body weight 2020-06-14 149.687 kg [facility] 20:25:00 of Medicine BMI 2020-06-14 51.69 kg/m2 [facility] 20:25:00 of Medicine Systolic blood 2020-06-14 117 mm[Hg] [facility] 20:25:00 of Medicine Diastolic blood 2020-06-14 71 mm[Hg] [facility] pressure 20:25:00 of Medicine Heart rate 2020-06-14 93 /min [facility] 20:25:00 of Medicine Body temperature 2020-06-14 37 Debra [facility] 20:25:00 of Medicine Body height 2020-06-14 170.2 cm [facility] 20:25:00 of Medicine Body weight 2020-06-14 149.687 kg [facility] 20:25:00 of Medicine BMI 2020-06-14 51.69 kg/m2 [facility] 20:25:00 of Medicine Systolic blood 2020-05-12 129 mm[Hg] [facility] pressure 18:10:00 of Medicine Diastolic blood 2020-05-12 83 mm[Hg] [facility] pressure 18:10:00 of Medicine Heart rate 2020-05-12 92 /min [facility] 18:10:00 of Medicine Body temperature 2020-05-12 36.5 Debra [facility] 18:06:00 of Medicine Systolic blood 2020-05-12 129 mm[Hg] [facility] 18:10:00 of Medicine Diastolic blood 2020-05-12 83 mm[Hg] [facility] pressure 18:10:00 of Medicine Heart rate 2020-05-12 92 /min [facility] 18:10:00 of Medicine Body temperature 2020-05-12 36.5 Debra [facility] 18:06:00 of Medicine Systolic blood 2020-05-12 135 mm[Hg] [facility] pressure 19:43:00 of Medicine Diastolic blood 2020-05-12 88 mm[Hg] [facility] pressure 19:43:00 of Medicine Heart rate 2020-05-12 87 /min [facility] 19:43:00 of Medicine Body temperature 2020-05-12 36.5 Debra [facility] 19:43:00 of Medicine Respiratory rate 2020-05-12 16 /min [facility] 19:43:00 of Medicine Body height 2020-05-12 170.2 cm [facility] 19:43:00 of Medicine Body weight 2020-05-12 149.687 kg [facility] 19:43:00 of Medicine BMI 2020-05-12 51.69 kg/m2 [facility] 19:43:00 of Medicine Oxygen saturation 2020-05-12 95 /min [facility] in Arterial blood 19:43:00 of Medicin e by Pulse oximetry Systolic blood 2020-05-12 135 mm[Hg] [facility] pressure 19:43:00 of Medicine Diastolic blood 2020-05-12 88 mm[Hg] [facility] ge pressure 19:43:00 of Medicine Heart rate 2020-05-12 87 /min [facility] 19:43:00 of Medicine Body temperature 2020-05-12 36.5 Debra [facility] 19:43:00 of Medicine Respiratory rate 2020-05-12 16 /min [facility] 19:43:00 of Medicine Body height 2020-05-12 170.2 cm [facility] 19:43:00 of Medicine Body weight 2020-05-12 149.687 kg [facility] 19:43:00 of Medicine BMI 2020-05-12 51.69 kg/m2 [facility] 19:43:00 of Medicine Oxygen saturation 2020-05-12 95 /min [facility] in Arterial blood 19:43:00 of Medicin e by Pulse oximetry HEIGHT 2020-02-10 175.3 cm 00:00:00 WEIGHT 2020-02-10 182.89 kg 00:00:00 Systolic blood 2019-12-22 150 mm[Hg] [facility] pressure 07:15:00 [facility] Diastolic blood 2019-12-22 87 mm[Hg] [facility] pressure 07:15:00 [facility] Heart rate 2019-12-22 86 /min [facility] 07:15:00 [facility] Respiratory rate 2019-12-22 18 /min [facility] 07:15:00 [facility] Oxygen saturation 2019-12-22 97 /min [facility] in Arterial blood 07:15:00 [facility] by Pulse oximetry Branch Body temperature 2019-12-[address] [facility] 02:58:00 [facility] Body weight 2019-12-[address] [facility] 02:58:00 [facility] BMI 2019-12-22 62.35 kg/m2 [facility] 02:58:00 [facility] Systolic blood 2019-08-20 148 mm[Hg] [facility] pressure 17:52:00 [facility] Diastolic blood 2019-08-20 90 mm[Hg] [facility] pressure 17:52:00 [facility] Heart rate 2019-08-20 89 /min [facility] 17:52:00 [facility] Body temperature 2019-08-[address] [facility] 17:52:00 [facility] Respiratory rate 2019-08-20 20 /min [facility] 17:52:00 [facility] Body weight 2019-08-[address] [facility] 17:52:00 [facility] BMI 2019-08-20 62.35 kg/m2 [facility] 17:52:00 [facility] Oxygen saturation 2019-08-20 98 /min [facility] in Arterial blood 17:52:00 [facility] by Pulse oximetry Branch Heart rate 2022-07-15 84 /min [facility] 12:18:59 [facility] Respiratory rate 2022-07-15 19 /min [facility] 12:18:59 [facility] Oxygen saturation 2022-07-15 97 /min [facility] in Arterial blood 12:18:59 [facility] nter by Pulse oximetry Body temperature 2022-07-[address] [facility] 12:18:38 [facility] Systolic blood 2022-07-15 128 mm[Hg] [facility] pressure 12:18:00 [facility] Diastolic blood 2022-07-15 70 mm[Hg] [facility] pressure 12:18:00 [facility] Body height 2022-07-[address] [facility] 22:19:51 [facility] Body weight 2022-07-[address] [facility] 22:19:51 [facility] BMI 2022-07-07 34.80 kg/m2 [facility] 22:19:51 [facility] Systolic blood 2022-07-06 123 mm[Hg] [facility] 14[facility]00 [facility] Diastolic blood 2022-07-06 70 mm[Hg] [facility] pressure 14:00:00 [facility] Heart rate 2022-07-06 84 /min [facility] 14:00:00 [facility] Respiratory rate 2022-07-06 23 /min [facility] 14:[facility]:00 [facility] Oxygen saturation 2022-07-06 96 /min [facility] in Arterial blood 12:15:00 [facility] by Pulse oximetry Body temperature 2022-07-[address] [facility] 11:09:[facility] Body height 2022-07-[address] [facility] 11:09:00 [facility] Body weight 2022-07-[address] [facility] 11:09: [facility] BMI 2022-07-06 35.32 kg/m2 [facility] 11:09:00 [facility] Systolic blood 2022-06-21 112 mm[Hg] [facility] pressure 11:15:00 [facility] Diastolic blood 2022-06-21 51 mm[Hg] [facility] pressure 11:15:00 [facility] Heart rate 2022-06-21 68 /min [facility] 11:15:00 [facility] Body temperature 2022-06-[address] [facility] 11:15:00 [facility] Respiratory rate 2022-06-21 20 /min [facility] 11:15:00 [facility] Oxygen saturation 2022-06-21 96 /min [facility] in Arterial blood 11:15:00 [facility] by Pulse oximetry Body height 2022-06-[address] [facility] 06:24:00 [facility] Body weight 2022-06-[address] [facility] 06:24:00 [facility] BMI 2022-06-20 36.58 kg/m2 [facility] 06:24:00 [facility] Systolic blood 2022-03-23 118 mm[Hg] [facility] 07:00:00 [facility] Diastolic blood 2022-03-23 58 mm[Hg] [facility] 07:00:00 Hospital Heart rate 2022-03-23 60 /min [facility] 07:[facility]:00 [facility] Respiratory rate 2022-03-23 16 /min [facility] 07:00:00 [facility] Oxygen saturation 2022-03-23 96 /min [facility] Arterial blood 07:00:00 [facility] by Pulse oximetry Body temperature 2022-03-23 37.17 Debra [facility] 05:17: Hospital Body height 2022-03-23 175.3 cm [facility] Body weight 2022-03-23 118.18 kg [facility] BMI 2022-03-23 38.47 kg/m2 [facility] 05:17:00 Hospital BP Systolic 2019-07-13 118 mm[Hg] Location: LUE; [facility] 13:08:00 Position: Sitting BP Diastolic 2019-07-13 73 mm[Hg] Location: [place]; [facility] 13:08:00 Position: Sitting Height 2019-07-13 68 [in_us] [facility] 13:08:00 Weight 2019-07-13 331 [lb_av] [facility] 13:08:00 Body Mass Index 2019-07-13 50.33 kg/m2 [facility] 13:08:00 Heart Rate 2019-07-13 84 /min [facility] 13:08:00 BP Systolic 2019-04-16 100 mm[Hg] Location: DAO; [facility] 12:58:00 Position: Sitting BP Diastolic 2019-04-16 66 mm[Hg] Location: [place]O; [facility] 12:58:00 Position: Sitting Height 2019-04-16 68 [in_us] [facility] 12:58:00 Weight 2019-04-16 332 [lb_av] [facility] 12:58:00 Body Mass Index 2019-04-16 50.48 kg/m2 [facility] Calculated 12:58:00 Heart Rate 2019-04-16 91 /min Location: L [facility] 12:58:00 Radial; Quality: Normal BP Systolic 2019-03-26 122 mm[Hg] Location: DAO; [facility] 11:25:00 Position: Sitting BP Diastolic 2019-03-26 73 mm[Hg] Location: [place]; [facility] 11:25:00 Position: Sitting Height 2019-03-26 [...] BP Diastolic 2019-03-05 79 mm[Hg] Location: LUE; [facility] 10:35:00 Position: Sitting Height 2019-03-05 68 [in_us] [facility] 10:35:00 Weight 2019-03-05 331 [lb_av] [facility] 10:35:00 Body Mass Index 2019-03-05 50.33 kg/m2 [facility] 10:35:00 Heart Rate 2019-03-05 90 /min Location: L [facility] 10:35:00 Radial; Temperature 2019-03-05 98.4 [degF] Method: Oral [facility] 10:35:00 BP Systolic 2019-02-05 120 mm[Hg] Location: LUE; [facility] 16:19:00 Position: Sitting BP Diastolic 2019-02-05 74 mm[Hg] Location: LUE; [facility] 16:19:00 Position: Sitting Height 2019-02-05 68 [in_us] [facility] 16:19:00 Weight 2019-02-05 329 [lb_av] [facility] 16:19:00 Body Mass Index 2019-02-05 50.02 kg/m2 [facility] 16:19:00 Temperature 2019-02-05 98 [degF] Method: Oral [facility] 16:19:00 Heart Rate 2019-02-05 89 /min Location: L [facility] 16:19:00 Radial; Quality: Normal Respiration Rate 2019-02-05 18 /min Quality: Normal [facility] 16:19:00 O2 SAT 2019-02-05 95 % Source: [facility] 16:19:00 BP Systolic 2019-01-29 120 mm[Hg] Location: LUE; [facility] 15:41:00 Position: Sitting BP Diastolic 2019-01-29 80 mm[Hg] Location: LUE; [facility] 15:41:00 Position: Sitting Height 2019-01-29 68 [...] BP Systolic 2019-01-13 119 mm[Hg] Location: LUE; [facility] 08:26:00 Position: Sitting BP Diastolic 2019-01-13 79 mm[Hg] Location: LUE; [facility] 08:26:00 Position: Sitting Heart Rate 2019-01-13 91 /min [facility] 08:26:00 Respiration Rate 2019-01-13 19 /min [facility] 08:26:00 BP Systolic 2019-01-13 123 mm[Hg] Location: LUE; [facility] 08:22:00 Position: Sitting BP Diastolic 2019-01-13 85 mm[Hg] Location: LUE; [facility] 08:22:00 Position: Sitting Height 2019-01-13 68 [in_us] [facility] 08:22:00 Weight 2019-01-13 325 [lb_av] [facility] 08:22:00 Body Mass Index 2019-01-13 49.42 kg/m2 [facility] 08:22:00 BP Systolic 2018-12-29 111 mm[Hg] Location: LUE; [facility] 13:10:00 Position: Sitting BP Diastolic 2018-12-29 73 mm[Hg] Location: LUE; [facility] 13:10:00 Position: Sitting Weight 2018-12-29 325.4375 [lb_av] [facility] 13:10:00 Height 2018-12-29 68 [in_us] [facility] 13:10:00 Body Mass Index 2018-12-29 49.48 kg/m2 [facility] Cal[facility] 13:10:00 Temperature 2018-12-29 98.3 [degF] Method: Oral [facility] 13:10:00 Heart Rate 2018-12-29 93 /min Location: L [facility] 13:10:00 Brachial Artery; Quality: Normal O2 SAT 2018-12-29 94 % Source: RA [facility] 13:10:00 Respiration Rate 2018-12-29 20 /min Quality: Normal [facility] 13:10:00 Procedures Procedure Date / Time Performing Clinician Source Performed ELECTROCARDIOGRAM COMPLETE 2022-07-26 11:58:00 [facility] CBC W/AUTO DIFF WITH 2022-07-20 13:21:37 [facility] COMPREHENSIVE METABOLIC 2022-07-20 13:21:37 [facility] IRON+TIBC+%SAT 2022-07-20 13:21:37 [facility] FERRITIN 2022-07-20 13:21:37 [facility] CTA CHEST FOR PULMONARY 2022-07-14 11:22:00 Rubi Morales [facility] URINE CULTURE 2022-07-12 18:32:00 [facility] URINALYSIS W/ REFLEX URINE 2022-07-12 18:32:00 Yecenia Kwon [facility] ECG 12-LEAD 2022-07-12 15:58:45 Marleny Humphreys [facility] XR CHEST 1 VIEW PORTABLE / 2022-07-12 07:42:[address] [facility] BEDSIDE [facility] PROCEDURE, IN NON-OPERATING 2022-07-10 20:35:00 Surgeon Mariah [facility] ROOM SETTING [facility] Center CT DRAINAGE W CATH 2022-07-10 18:39:00 Marleny Humphreys [facility] PROTHROMBIN TIME/INR 2022-07-09 03:48:00 [facility] SCREEN, URINE 2022-07-09 00:04:00 Samra Elliott I [facility] BASIC METABOLIC PANEL 2022-07-08 03:49:00 Kvng [facility] MAGNESIUM 2022-07-08 03:49:00 Kvng [facility] PHOSPHORUS 2022-07-08 03:49:00 Kvng [facility] CBC W/PLT COUNT & AUTO 2022-07-08 03:49:00 Kvng [facility] C-REACTIVE PROTEIN 2022-07-08 03:49:00 [facility] HEPAT[facility] FUNCTION PANEL 2022-07-08 03:49:00 [facility] W/[facility]T COUNT & AUTO 2022-07-08 03:49:[facility]/PELVIS WITH IV 2022-07-06 12:20:00 Allyson Jolly CH, I [facility] CONTRAST [facility] URINALYSIS W/ REFLEX URINE 2022-07-06 12:14:[address] [facility] CULTURE [facility] URINE CULTURE 2022-07-06 12:14:[address] [facility] SARS-COV2/RT-PCR ([facility] & 2022-07-06 11:48:00 Shanae [facility] REF LABS) [facility] COMPREHENSIVE METABOLIC 2022-07-06 11:15:00 Allyson Jolly [facility] PANEL [facility] CBC W/PLT COUNT & AUTO 2022-07-06 11:15:00 Allyson Jolly [facility] LIPASE 2022-07-06 11:15:[address] [facility] LACTIC ACID, VENOUS 2022-07-06 11:15:00 Shanae [facility] PT/APTT 2022-07-06 11:15[facility] TYPE AND SCREEN, AUTOMATED 2022-07-06 11:15:00 Allyson Jolly [facility] CBC W/PLT COUNT & AUTO 2022-07-06 11:15:00 [facility] DIFFERENTIAL [facility] LYMPHOCYTE PHENOTYPING 2022-07-05 11:06:49 [place] [id number] Medicine B-CELL MEMORY AND NAIVE 2022-07-05 11:06:49 [facility] MR CERVICAL SPINE WO 2022-07-04 21:57:00 Kerry Horvath [facility] [place] IV INFUSION, HYDRATION, 2022-07-03 10:24:31 [facility] EA ADD HOUR Medicine [place] IV INFUSION, HYDRATION, 2022-07-03 10:24:31 B [facility] 31-60 MIN Medicine XR CERVICAL SPINE 2 VW 2022-06-29 20:11:45 Kerry Horvath [facility] CONSENT/REFUSAL FOR 2022-06-29 19:48:14 Doctor Unassigned, [facility] DIAGNOSIS AND TREATMENT [facility] ASSIGNMENT OF BENEFITS 2022-06-29 19:48:00 Doctor Unassigned, [facility] AMB REF TO ALLERGY AND 2022-06-28 19:57:08 [facility] IMMUNOLOGY IN DEPT OF Medicine MEDICINE [facility] POCT-GLUCOSE METER 2022-06-21 11:16:00 RACHELE Meredith [facility] URINALYSIS W/ REFLEX URINE 2022-06-21 07:37:[address] [facility] POCT-GLUCOSE METER 2022-06-21 05:35:00 RACHELE Meredith [facility] POCT-GLUCOSE METER 2022-06-21 00:05:00 RACHELE Meredith [facility] POCT-GLUCOSE METER 2022-06-20 17:50:00 Froilan [facility] TISSUE EXAM 2022-06-20 11:46:00 RACHELE Meredith [facility] GASTRECTOMY, SLEEVE, 2022-06-20 10:49:00 RACHELE Meredith [facility] LAPAROSCOPIC [facility] POCT-GLUCOSE METER 2022-06-20 06:35:00 Froilan [facility] POCT , URINE 2022-06-20 06:25:00 [facility] ED ECG INTERPRETATION 2022-06-19 20:47:00 Dmitri Mckeon CH I [facility] XR CHEST 1 VIEW PORTABLE / 2022-06-19 19:42:[address] [facility] ECG 12-LEAD 2022-06-19 19:23:04 Dmitri Mckeon [facility] ECG 12-LEAD 2022-06-19 19:23:04 Unknown, Hl7 Doctor [facility] ECG 12-LEAD 2022-06-19 19:23:04 Unknown, Hl7 Doctor [facility] EKG-SCANNED 2022-06-19 00:00:00 Provider, Default [facility] XR SCAPULA RIGHT 2022-06-15 22:25:00 Sydnie Gallegos [facility] XR SHOULDER 2+ VW RIGHT 2022-06-15 22:25:00 Sydnie Gallegos [facility] HEMOGLOBIN 2022-06-14 13:12:00 [facility] ELECTROLYTES 2022-06-14 13:12:00 [facility] BUN AND CREATININE W/RATIO 2022-06-14 13:12:00 [facility] PATIENT QUESTIONNAIRE 2022-06-14 06:01:00 Doctor Unassigned, [facility] OCT, RETINA - OU - BOTH 2022-06-13 14:47:24 [facility] EYES [facility] OCT, OPTIC NERVE - OU - 2022-06-13 14:47:22 [facility] EYES Medicine 24-2 AGUSTIN FASTER,OU-BOTH 2022-06-13 14:47:21 [facility] EYES [facility] IMMUNOGLOBULINS IGG IGA IGM 2022-06-08 17:00:00 [facility] C4 COMPLEMENT 2022-06-08 17:00:00 [facility] C3 COMPLEMENT 2022-06-07 12:11:26 [facility] DIPTHERIA/TETANUS AB PANEL 2022-06-07 12:09:37 B [facility] STREP PNEUMONIAE AB, 23 2022-06-07 12:09:37 [facility] B-CELL MEMORY AND NAIVE 2022-06-07 12:00:28 [facility] LYMPHOCYTE PHENOTYPING 2022-06-07 12:00:[address] IGE 2022-06-07 11:46:17 [facility] Medicine [facility] IGE 2022-06-07 11:46:17 [facility] EMG/NCV 2022-06-06 16:15:00 Oj Lin [facility] ity of [facility] IGE 2022-05-31 11:00:16 [facility] B-CELL MEMORY AND NAIVE 2022-05-31 10:59:01 [facility] LYMPHOCYTE PHENOTYPING 2022-05-31 10:59:[address] N-METHYLHISTAMINE, 24 HR, U 2022-05-31 10:57:25 [facility] SPIROMETRY WITH 2022-05-30 13:54:16 [facility] BRONCHODILATOR Medicine EMG PM\\T\\R 2022-05-09 12:47:12 [facility] REPORT OF PROCEDURE - 2022-05-07 15:33:03 Ilia Pascal I [facility] ENDOSCOPY [facility] REPORT OF PROCEDURE - 2022-05-07 15:32:35 Ilia Pascal I [facility] ENDOSCOPY [facility] ESOPHAGOGASTRODUODENOSCOPY, 2022-05-07 14:42:00 Ilia Pascal [facility] WITH PH MONITORING CAPSULE Medic al Center INSERTION COLONOSCOPY 2022-05-07 14:42:00 Ilia Pascal [facility] POCT , URINE 2022-05-07 12:19:00 Willard Bueno I [facility] [place] NASAL ENDOSCOPY,DX 2022-05-06 22:44:59 [facility] TSH 2022-05-05 11:22:00 [facility] COMPLEMENT COMPONENT C3C 2022-05-05 11:22:00 [facility] C4 COMPLEMENT 2022-05-05 11:22:00 [facility] IMMUNOGLOBULINS IGG IGA IGM 2022-05-05 11:22:00 [facility] TRYPTASE 2022-05-05 11:22:00 [facility] C4 COMPLEMENT 2022-05-05 11:11:00 [facility] TRYPTASE 2022-05-05 11:11:00 [facility] IMMUNOGLOBULINS IGG IGA IGM 2022-05-05 11:11:00 [facility] DIPTHERIA/TETANUS AB PANEL 2022-05-05 11:11:00 B [facility] STREP PNEUMONIAE ANTIBODY 2022-05-05 11:11:00 [facility] SPIROMETRY WITH 2022-05-01 16:23:58 [facility] BRONCHODILATOR Medicine C3 COMPLEMENT 2022-05-01 15:33:48 [facility] C4 COMPLEMENT 2022-05-01 15:33:48 [facility] TRYPTASE 2022-05-01 15:33:48 [facility] IGE 2022-05-01 15:33:48 [facility] IMMUNOGLOBULINS IGG IGA IGM 2022-05-01 15:33:48 [facility] LYMPHOCYTE PHENOTYPING 2022-05-01 15:33:[address] B-CELL MEMORY AND NAIVE 2022-05-01 15:33:48 [facility] N-METHYLHISTAMINE, URINE 2022-05-01 15:33:48 [facility] DIPTHERIA/TETANUS AB PANEL 2022-05-01 15:33:48 B [facility] STREP PNEUMONIAE ANTIBODY 2022-05-01 15:33:48 [facility] AMB REF TO ALLERGY AND 2022-04-30 10:15:04 [facility] IMMUNOLOGY IN DEPT OF Medicine MEDICINE [facility] PAP SETTING CHANGE 2022-04-19 15:05:09 [facility] SLEEP EQUIPMENT DOWNLOAD 2022-04-19 12:10:35 [facility] AMB REF TO ENT [facility] 2022-04-19 12:10:15 [facility] EMG NEUROLOGY 2022-04-09 11:11:17 [facility] AMB REF TO PT EXTERNAL 2022-04-09 11:04:43 [facility] VITAMIN B6 2022-04-06 11:30:00 [facility] VITAMIN B12 2022-04-06 11:30:00 [facility] VITAMIN B1 2022-04-06 11:30:00 [facility] VITAMIN A 2022-04-06 11:30:00 [facility] URINALYSIS, COMPLETE 2022-04-06 11:30:00 [facility]/REFLEX TO CULTURE Medicine PROTIME \\T\\ PTT 2022-04-06 11:30:00 [facility] LIPID PANEL 2022-04-06 11:30:00 [facility] IRON, TIBC AND FERRITIN 2022-04-06 11:30:00 [facility] HEMOGLOBIN A1C 2022-04-06 11:30:00 [facility] FOLATE 2022-04-06 11:30:00 [facility] COMPREHENSIVE METABOLIC 2022-04-06 11:30:00 [facility] CBC W/AUTO DIFF WITH 2022-04-06 11:30:00 [facility] THYROID PROFILE (T3U - T4 - 2022-04-06 11:30:00 [facility] T7 - TSH) Medicine REFLEXIVE URINE CULTURE 2022-04-06 11:30:00 [facility] VITAMIN D, 25-HYDROXY, 2022-04-06 11:30:00 [facility] LC/MS/MS Medicine ASSIGNMENT OF BENEFITS 2022-04-03 18:47:41 Doctor Unassigned, [facility] URINALYSIS 2022-03-23 06:56:[address] [facility] [address] HEAD WO CONTRAST 2022-03-23 06:27:39 [facility] AMB REF TO OPHTHALMOLOGY 2022-03-21 11:35:41 [facility] XR SHOULDER COMPLETE 2 2022-03-17 13:21:00 Joann Fengsamuelirma RACHELE [facility] VIEWS MIN [facility] MR CERVICAL SPINE WITH & 2022-03-16 22:43:00 Joann Fengsamuelirma JEFFREY [facility] WITHOUT IV CONTRAST Medical [facility] er MR BRAIN WITH & WITHOUT IV 2022-03-16 22:42:00 Ping Donny Miguel [facility] ECG 12-LEAD 2022-03-16 01:36:41 AnamegeMariel [facility] ECG 12-LEAD 2022-03-16 01:36:41 Unknown, Hl7 Doctor [facility] ECG 12-LEAD 2022-03-16 01:36:41 Unknown, Hl7 [facility] URINE CULTURE 2022-03-15 17:52:00 Ping Donny [facility] URINALYSIS W/ REFLEX URINE 2022-03-15 17:52:00 Ping Donny Rivera [facility] MISCELLANEOUS LAB ORDER 2022-03-15 12:33:[address] [facility] COPPER 2022-03-15 09:09:00 [facility] BASIC METABOLIC PANEL 2022-03-15 05:20:00 [facility] HEPATIC FUNCTION PANEL 2022-03-15 05:20:00 Yuli Robles [facility] MAGNESIUM 2022-03-15 05:20:00 Yuli Robles [facility] VITAMIN B12 2022-03-15 03:24:00 [facility] TSH/FREE T4 IF INDICATED 2022-03-15 03:24:00 Yuli Robles [facility] PROTEIN ELECTROPHORESIS, 2022-03-15 03:24:00 Yuli Robles [facility] CBC W/PLT COUNT & AUTO 2022-03-15 03:24:00 Yuli Robles [facility] CBC W/PLT COUNT & AUTO 2022-03-15 03:24:[address] [facility] SARS-COV2/RT-PCR ([facility] & 2022-03-14 22:10:[address] [facility] REF LABS) [facility] CBC W/PLT COUNT & AUTO 2022-03-14 18:11:00 Trina [facility] PT/APTT 2022-03-14 18:11:00 Trina [facility] COMPREHENSIVE METABOLIC 2022-03-14 18:11:00 Trina, [facility] HCG, QUANTITATIVE, 2022-03-14 18:11:00 [facility] CBC W/PLT COUNT & AUTO 2022-03-14 18:11[facility]00 [facility] + PROTEIN 2022-03-12 21:32:00 Leonora Smith [facility] ELECTROPHORESIS - SERUM Bhavana Medicine VITAMIN B12 2022-03-12 21:29:00 Tigre [facility] PYRUVIC ACID 2022-03-12 21:29:00 Tigre Leonora [facility] IMMUNOFIXATION + PROTEIN 2022-03-12 16:32:00 [facility] Medicine VITAMIN B12 2022-03-12 16:29:00 [facility] PYRUVIC ACID 2022-03-12 16:29:00 [facility] PARANEOPLASTIC PANEL, W RFL 2022-03-12 14:20:17 [facility] (SERUM) [facility] LACTATE 2022-03-12 14:20:17 [facility] REFERRAL- REQUEST/RESPONSE 2022-03-09 05:01:00 Doctor Unassigned , [facility] CT BRAIN WITHOUT IV 2022-03-07 17:56:[address] [facility] CBC W/PLT COUNT & AUTO 2022-03-07 17:21:00 Alao, Pili Billy DIFFERENTIAL [facility] COMPREHENSIVE METABOLIC 2022-03-07 17:21:00 PujazechariahPili [facility] PANEL [facility] MAGNESIUM 2022-03-07 17:21:[address] [facility] PHOSPHORUS 2022-03-07 17:21:[address] [facility] CBC W/PLT COUNT & AUTO 2022-03-07 17:21:00 Pili Springer [facility] DIFFERENTIAL [facility] AMB REF TO NEUROLOGY [facility] 2022-02-27 13:16:53 [facility] HIV AB/AG 4TH GEN W RFLX 2022-02-22 08:25:00 [facility] URINALYSIS, COMPLETE 2022-02-21 12:24:24 [facility]/REFLEX TO CULTURE Medicine CBC W/AUTO DIFF WITH 2022-02-21 12:16:08 [facility] PLATELETS [facility] COMPREHENSIVE METABOLIC 2022-02-21 12:16:08 [facility] CPAP MACHINE 2022-02-16 00:00:00 [facility] COMPREHENSIVE METABOLIC 2022-02-12 14:54:05 [facility] HIV AB/AG 4TH GEN W RFLX 2022-02-12 14:52:22 [facility] CBC W/AUTO DIFF WITH 2022-02-12 14:52:22 [facility] PLATELETS [facility] C DIFFICILE TOXIN PCR 2022-02-06 16:44:00 [facility] [place] ESOPHAGUS 2022-01-15 11:07:00 RACHELE Meredith [facility] CBC W/AUTO DIFF WITH 2022-01-09 15:26:25 [facility] PLATELETS [facility] COMPREHENSIVE METABOLIC 2022-01-09 15:26:25 [facility] TSH 2022-01-09 15:26:25 [facility] CPAP MACHINE 2021-12-21 14:08:51 [facility] DIAGNOSTIC SLEEP STUDY 2021-12-21 08:15:20 [facility] DIAGNOSTIC SLEEP STUDY 2021-12-21 00:00:00 [facility] POLYSOMNOGRAPHY 2021-12-13 22:41:53 Pablo Fernandez [facility] POLYSOMNOGRAPHY REPORT - 2021-12-13 00:00:00 Provider, Sierra KENNEDY [facility] ELECTROCARDIOGRAM COMPLETE 2021-11-23 22:37:57 Abdoulaye Pierce [facility] ELECTROCARDIOGRAM COMPLETE 2021-11-23 17:37:57 Howard [facility] URINALYSIS W REFLEX MICRO 2021-11-22 13:55:00 [facility] URINE CULTURE 2021-11-22 13:55:00 [facility] PLEASE NOTE 2021-11-22 13:55:00 [facility] CBC W/AUTO DIFF WITH 2021-11-21 10:43:51 [facility] BASIC METABOLIC PANEL 2021-11-21 10:43:51 [facility] HEPATIC FUNCTION PANEL 2021-11-21 10:43:51 [facility] SEDIMENTATION RATE MODIFIED 2021-11-21 10:43:51 [facility] AMB REF TO PSYCHOLOGY 2021-11-16 11:34:51 [facility] VITAMIN B12 2021-11-14 15:44:21 [facility] VITAMIN B1 2021-11-14 15:44:21 [facility] VITAMIN A 2021-11-14 15:44:21 [facility] URINALYSIS, COMPLETE 2021-11-14 15:44:21 [facility]/REFLEX TO CULTURE Medicine PROTIME \\T\\ PTT 2021-11-14 15:44:21 [facility] LIPID PANEL 2021-11-14 15:44:21 [facility] IRON, TIBC AND FERRITIN 2021-11-14 15:44:21 [facility] HEMOGLOBIN A1C 2021-11-14 15:44:21 [facility] FOLATE 2021-11-14 15:44:21 [facility] COMPREHENSIVE METABOLIC 2021-11-14 15:44:21 [facility] CBC W/AUTO DIFF WITH 2021-11-14 15:44:21 [facility] AMB REF TO PHYSICAL MED 2021-11-14 15:44:21 [facility] REHAB [facility] THYROID PROFILE (T3U - T4 - 2021-11-14 15:44:21 [facility] T7 - TSH) Medicine AMB REF TO BARIATRIC 2021-11-14 15:44:21 [facility] PSYCHOLOGIST PERSONNEL [facility] VITAMIN D 25 HYDROXY 2021-11-14 15:44:20 [facility] VITAMIN B6 2021-11-14 15:44:20 [facility] AMB REF TO GENETICS(GENERAL 2021-11-08 11:25:03 [facility] \\T\\ ALL CANCERS)[facility] AMB REF TO BARIATRIC 2021-11-06 13:46:59 [facility] SURGERY [facility] AMB REF TO SLEEP 2021-11-06 13:45:36 [facility] Deangelo ege of [facility] Medicin e CT ABDOMEN/PELVIS WITH IV 2021-10-03 21:22:00 Makenzie Varela [facility] CONTRAST [facility] URINALYSIS W/ REFLEX URINE 2021-10-03 20:00:00 Makenzie Varela [facility] CULTURE [facility] SARS-COV2/RT-PCR ([facility] & 2021-10-03 19:58:00 Makenzie Varela [facility] REF LABS) Medical Center CBC W/PLT COUNT & AUTO 2021-10-03 19:40:[address] [facility] DIFFERENTIAL [facility] COMPREHENSIVE METABOLIC 2021-10-03 19:40:00 Makenzie Varela [facility] B-TYPE NATRIURETIC FACTOR 2021-10-03 19:40:00 Makenzie Varela [facility] ([facility]NP) [facility] Center HCG, QUANTITATIVE, 2021-10-03 19:40:00 Makenzie [facility]la [facility] HIGH SENSITIVITY TROPONIN I 2021-10-03 19:40:00 Makenzie V[facility] MAGNESIUM 2021-10-03 19:40:00 Makenzie Varela [facility] PHOSPHORUS 2021-10-03 19:40:00 Varela, Thuyen [facility] LIPASE 2021-10-03 19:40:00 Varela [facility] LACTIC ACID, VENOUS 2021-10-03 19:40:00 [facility] CBC W/PLT COUNT & AUTO 2021-10-03 19:40:00 Makenzie Varela [facility] XR CHEST 2 VIEWS 2021-10-03 19:06:00 Makenzie Varela [facility] ECG 12-LEAD 2021-10-03 18:24:15 Unknown, [facility] ECG 12-LEAD 2021-10-03 18:24:15 Unknown, [facility] ECG 12-LEAD 2021-10-03 18:24:15 Unknown, [facility] EKG-SCANNED 2021-10-03 00:00:00 Provider, [facility] [place] OCCUPATIONAL THERAPY 2021-06-27 13:19:30 [facility] LOW COMPLEX 30 MINS Medicin e [place] CANALITH REPOSITIONING 2021-06-27 13:19:30 [facility] PROCEDURE, PER DAY Medicine AMB REF TO SIVAKUMAR BALANCE 2021-06-27 11:47:25 [facility] HOMOCYSTEINE 2021-03-21 19:23:28 [facility] LIPID PANEL 2021-03-21 19:23:28 [facility] PROTEIN ELECTROPHORESIS - 2021-03-21 19:23:28 [facility] REFLEX TO IMMUNOFIXATION Medicin e RPR - W RFLX TO MHA-TP 2021-03-21 19:23:28 [facility] SEDIMENTATION RATE MODIFIED 2021-03-21 19:23:28 [facility] Medicine T3 UPTAKE 2021-03-21 19:23:28 [facility] T4 2021-03-21 19:23:28 [facility] TSH 2021-03-21 19:23:28 [facility] VITAMIN B12 2021-03-21 19:23:28 [facility] HEMOGLOBIN A1C 2021-03-21 19:23:28 [facility] VITAMIN D 25 HYDROXY 2021-03-21 19:23:28 [facility] FOLATE 2021-03-21 19:23:28 [facility] SJOGREN'S SS-A AND SS-B 2021-03-21 19:23:28 [facility] VITAMIN B6 2021-03-21 19:23:28 [facility] VITAMIN B1 2021-03-21 19:23:28 [facility] PARANEOPLASTIC PANEL, W RFL 2021-03-21 19:23:28 [facility] (SERUM) [facility] ANGIOTENSIN CONVERTING 2021-03-21 19:23:28 [facility] PORPHOBILINOGEN SCREEN 2021-03-21 19:23:28 [facility] AMB REF TO NEUROPSYCH 2021-03-21 19:23:[address] [facility] AMB REF TO SLEEP 2021-03-21 19:23:27 [facility] Deangelo ege of [facility]-STUDY \\T\\ TREATMENT Medic ine WARREN REFLEX TO NUCLEAR AB 2021-03-21 19:23:27 [facility] APOLIPOPROTEIN E MUTATION - 2021-03-21 19:23:27 [facility] CARDIAC Medicine CBC W/AUTO DIFF WITH 2021-03-21 19:23:27 [facility] PLATELETS [facility] COMPREHENSIVE METABOLIC 2021-03-21 19:23:27 [facility] [place] COMPREHENSIVE HEARING 2021-03-03 15:03:51 [facility] [place] TYMPANOMETRY 2021-03-03 15:03:51 [facility] AMB REF TO SIVAKUMAR AUDIOLOGY 2021-03-03 14:27:08 [facility] ASSIGNMENT OF BENEFITS 2020-03-10 18:05:52 Doctor [facility], [facility] Post Op Promis 29 Survey 2020-01-08 00:00:00 [facility] US Extremity lower venous 2019-12-23 00:00:00 [facility] Doppler Unilat 60020 BILATERAL VENOUS DUPLEX 2019-12-22 05:01:08 Dede Schaffer [facility] [place] LOWER EXTREMITY BY VASCULAR Medi tyler Branch LAB XR CHEST 2 VW 2019-12-22 04:26:01 Sarbjit [facility] COVID-19 (ID NOW RAPID 2019-12-22 03:39:00 Sarbjit [facility] TESTING) Medical Branch TROPONIN I 2019-12-22 03:33:00 Sarbjit [facility] HEPATIC FUNCTION PANEL 2019-12-22 03:33:00 [id number] (ALB,T.PRO,BILI [facility] T,BU/BC,ALT,AST,ALK PHOS) BASIC METABOLIC PANEL (NA, 2019-12-22 03:33:00 [facility], CL, CO2, GLUCOSE, BUN, Medica l Branch CREATININE, CA) CBC WITH DIFFERENTIAL 2019-12-22 03:33:00 [facility] 2019-12-22 03:33:00 Sarbjit [facility] N-TERMINAL PRO-BNP 2019-12-22 03:33:00 Sarbjit Dede [facility] URINALYSIS 2019-12-22 03:22:00 Sarbjit [facility] POCT TEST 2019-12-22 03:21:00 Dede Schaffer [facility] NOTICE OF PRIVACY PRACTICES 2019-12-22 02:50:34 Doctor [facility] Name [facility] CONSENT/REFUSAL FOR 2019-12-22 02:50:16 Doctor Gonzalez [facility] DIAGNOSIS AND TREATMENT [facility] MR Ankle wo contrast [id number] 2019-10-19 00:00:00 [facility] Spine lumbar wo 2019-08-24 00:00:00 [facility] contrast [id number] XR HIPS 2 VW RIGHT 2019-08-20 18:42:57 Mehreen Marquez [facility] NOTICE OF PRIVACY PRACTICES 2019-08-20 17:37:34 Doctor [facility] Name [facility] CONSENT/REFUSAL FOR 2019-08-20 17:37:25 Doctor Gonzalez [facility] DIAGNOSIS AND TREATMENT [facility] Post Op Promis 29 Survey 2019-05-20 00:00:00 [facility] [QL[facility]] CLOSTRIDIUM DIFFICILE 2019-04-16 00:00:00 [facility] TOXIN A AND B, EIA [QLH] CULTURE, STOOL 2019-04-16 00:00:00 [facility] (CAMPYLOBACTER, SALMONELLA/SHIGELLA) MR Shoulder wo contrast 2019-04-08 00:00:00 [facility] [id number] Colonoscopy 2019-03-06 00:00:00 [facility] [[facility]] CLOSTRIDIUM DIFFICILE 2019-03-05 00:00:00 [facility] TOXIN A AND B, EIA [QLH] CULTURE, URINE, 2019-02-13 00:00:00 [facility] ROUTINE [LH] GC/CT by Amp Det 2019-02-13 00:00:00 [facility] (APTIMA) MR Ankle wo contrast [id number] 2019-02-10 00:00:00 [facility] [QH] DRUG 2019-02-09 00:00:00 [facility] SCREEN,COMPREHENSIVE (URINE) XRAY Clavicle Bilateral 2019-01-29 00:00:00 [facility] 97211 [H] Celiac Pnl w/Rflx 2019-01-23 00:00:00 [facility] Endomy Ab Ttr [QLH] HEPATIC FUNCTION 2019-01-23 00:00:00 [facility] PANEL [H] LUNDBERG FibroSure 2019-01-23 00:00:00 [facility] [QL[facility]] CALPROTECTIN, STOOL 2019-01-23 00:00:00 [facility] US Abdomen Doppler 07718 2019-01-23 00:00:00 [facility] Sleep Lab - Sleep Study 2019-01-14 00:00:00 [facility] Split Night [H] CK Isoenzymes 2019-01-14 00:00:00 [facility] Complete PFTs w/DLCO and 2019-01-14 00:00:00 [facility] Lung Volumes [N] 2D Echo complete, with 2019-01-14 00:00:00 [facility] Doppler [id number] [QLH] URINALYSIS, COMPLETE 2019-01-13 00:00:00 U T [...] Views 2019-01-13 00:00:00 [facility] Bilateral 25011 XRAY Chest 2 views [id number] 2019-01-13 00:00:00 [facility] XRAY Hip bilateral w pelvis 2019-01-13 00:00:00 [facility] and both lat hips 68272 XRAY Spine lumbar AP 2019-01-13 00:00:00 [facility] lateral 36621 XRAY Spine cervical 2 or 3 2019-01-13 00:00:00 [facility] view [id number] XRAY Shoulder series [id number] 2019-01-13 00:00:00 [facility] [QLH] TSH, [...] [facility] s Test 00:00:00 (procedure) [code = [facility] 96589075] Future Scheduled 2025-04-[address] [facility] Test 00:00:00 (procedure) [code = [facility] 88244576] Future Scheduled 2025-04-[address] [facility] Test 00:00:00 (procedure) [code = [facility] 45750747] Future Scheduled 2025-04-[address] [facility] Test 00:00:00 (procedure) [code = [facility] 64027201] Future Scheduled 2025-04-[address] [facility] Test 00:00:00 (procedure) [code = [facility] 91321002] Future Scheduled 2023-07-[address] [...] - PCV)] Future Scheduled 2022-07-26 Screening for [facility] Test 05:19:59 malignant neoplasm of Hospit al cervix (procedure) [code = 606924783] Future Scheduled 2022-07-26 BREAST CANCER [facility] Test 05:19:59 SCREENING [code = Hospital BREAST CANCER SCREENING] Future Scheduled 2022-07-26 COVID-19 VACCINE (5 - [facility] 05:19:59 Booster for Moderna Hospital series) [code = COVID-19 VACCINE (5 - Booster for Moderna series)] Future Scheduled 2022-07-26 INFLUENZA VACCINE [facility] Test 05:19:59 [code = INFLUENZA Hospital VACCINE] Future Scheduled 2022-07-26 Pneumococcal Vaccine: [facility] Test 05:19:59 Pediatrics (0 to 5 Hospital Years) and At-Risk Patients (6 to 64 Years) (1 - PCV) [code = Pneumococcal Vaccine: Pediatrics (0 to 5 Years) and At-Risk Patients (6 to 64 Years) (1 - PCV)] Future Scheduled 2022-07-26 Screening for [facility] Test 05:19:59 malignant neoplasm of Hospit al cervix (procedure) [code = 820089877] Future Scheduled 2022-07-26 BREAST CANCER [facility] Test 05:19:59 SCREENING [code = Hospital BREAST [...] - PCV)] Future Scheduled 2022-07-20 [facility]ening for [facility] Test 12:51:46 malignant neoplasm of Hospit al cervix (procedure) [code = 177681064] Future Scheduled 2022-07-20 BREAST CANCER [facility] Test 12:51:46 SCREENING [code = Hospital BREAST [...] - PCV)] Future Scheduled 2022-07-06 Screening for [facility] Test 15:48:51 malignant neoplasm of Hospit al cervix (procedure) [code = 106356928] Future Scheduled 2022-07-06 BREAST CANCER [facility] Test 15:48:51 SCREENING [code = Hospital BREAST [...] - PCV)] Future Scheduled 2022-06-28 Screening for [facility] Test 13:07:28 malignant neoplasm of Hospit al cervix (procedure) [code = 417376723] Future Scheduled 2022-06-28 BREAST CANCER [facility] Test 13:07:28 SCREENING [code = Hospital BREAST CANCER SCREENING] Future Scheduled 2022-06-28 COVID-19 VACCINE (5 - [facility] Test 13:07:28 Booster for Moderna Hospital series) [code = COVID-19 VACCINE (5 - Booster for Moderna series)] Future Scheduled 2022-06-28 INFLUENZA VACCINE Method [facility] Test 13:07:28 [code = INFLUENZA Hospital VACCINE] Future Scheduled 2022-05-06 [place] NASAL ENDOSCOPY,DX Ordered: [facility] Test 22:44:59 [code = 53064] 05/06/2022 of Medicine Future Scheduled 2022-05-06 Screening for [facility]ge Test 22:38:08 malignant neoplasm of of Med icine colon (procedure) [code = 864700306] Future Scheduled 2022-05-06 COVID-19 Vaccine (3 - Ba [facility] Test 22:38:08 Moderna risk series) of Medi cine [code = COVID-19 Vaccine (3 - Moderna risk series)] Future Scheduled 2022-05-06 FLU VACCINE > 6 MONTHS Postponed from [facility] Test 22:38:08 [code = FLU VACCINE > 01/22/2022 of Med icine 6 MONTHS] (Postpone Reason: Patient declined today) Future Scheduled 2022-05-06 BMI FOLLOW UP PLAN [employer] Test 22:38:08 [code = BMI FOLLOW UP of Med icine PLAN] Future Scheduled 2022-05-06 Screening for [facility] Test 22:38:08 malignant neoplasm of of Med icine breast (procedure) [code = 854846264] Future Scheduled 2022-05-06 Screening for [facility] Test 22:38:08 malignant neoplasm of of Med icine cervix (procedure) [code = 570014161] Future Scheduled 2022-05-06 TETANUS SHOT (ADULT) [employer] Test 22:38:08 [code = TETANUS SHOT of Medi cine (ADULT)] Future Scheduled 2022-04-30 CT SINUS W FUSION 1 Occurrences [employer] Test 10:15:04 [code = 40415] starting of Medicine 04/30/2022 until 04/30/2023 Future Scheduled 2022-04-24 Screening for [facility] Test 14:51:25 malignant neoplasm of of Med icine colon (procedure) [code = 841812562] Future Scheduled 2022-04-24 COVID-19 Vaccine (3 - Ba [facility] Test 14:51:25 Moderna risk series) of Medi cine [code = COVID-19 Vaccine (3 - Moderna risk series)] Future Scheduled 2022-04-24 FLU VACCINE > 6 MONTHS Postponed from [facility] Test 14:51:25 [code = FLU VACCINE > 01/22/2022 of Med icine 6 MONTHS] (Postpone Reason: Patient declined today) Future Scheduled 2022-04-24 BMI FOLLOW UP PLAN [employer] Test 14:51:25 [code = BMI FOLLOW UP of Med icine PLAN] Future Scheduled 2022-04-24 Screening for [facility] Test 14:51:25 malignant neoplasm of of Med icine breast (procedure) [code = 905377181] Future Scheduled 2022-04-24 Screening for [facility] Test 14:51:25 malignant neoplasm of of Med icine cervix (procedure) [code = 494086852] Future Scheduled 2022-04-24 TETANUS SHOT (ADULT) [employer] Test 14:51:25 [code = TETANUS SHOT of Medi cine (ADULT)] Future Scheduled 2022-04-10 Screening for [facility] Test 06:58:13 malignant neoplasm of of Med icine colon (procedure) [code = 023003045] Future Scheduled 2022-04-10 COVID-19 Vaccine (3 - [facility] [employer] Test 06:58:13 Moderna risk series) of Medi cine [code = COVID-19 Vaccine (3 - Moderna risk series)] Future Scheduled 2022-04-10 FLU VACCINE > 6 MONTHS Postponed from [facility] Test 06:58:13 [code = FLU VACCINE > 01/22/2022 of Med icine 6 MONTHS] (Postpone Reason: Patient declined today) Future Scheduled 2022-04-10 BMI FOLLOW UP PLAN [employer] Test 06:58:13 [code = BMI FOLLOW UP of Med icine PLAN] Future Scheduled 2022-04-10 Screening for [facility] Test 06:58:13 malignant neoplasm of of Med icine breast (procedure) [code = 432823341] Future Scheduled 2022-04-10 Screening for [facility] Test 06:58:13 malignant neoplasm of of Med icine cervix (procedure) [code = 229767364] Future Scheduled 2022-04-10 TETANUS SHOT (ADULT) [facility] Test 06:58:13 [code = TETANUS SHOT of Medi cine (ADULT)] Future Scheduled 2022-04-09 Screening for [facility] Test 17:05:18 malignant neoplasm of of Med icine colon (procedure) [code = 519357349] Future Scheduled 2022-04-09 COVID-19 Vaccine (3 - [facility] [employer] Test 17:05:18 Moderna risk series) of Medi cine [code = COVID-19 Vaccine (3 - Moderna risk series)] Future Scheduled 2022-04-09 FLU VACCINE > 6 MONTHS Postponed from [facility] Test 17:05:18 [code = FLU VACCINE > 01/22/2022 of Med icine 6 MONTHS] (Postpone Reason: Patient declined today) Future Scheduled 2022-04-09 BMI FOLLOW UP PLAN [employer] Test 17:05:18 [code = BMI FOLLOW UP of Med icine PLAN] Future Scheduled 2022-04-09 Screening for [facility] Test 17:05:18 malignant neoplasm of of Med icine breast (procedure) [code = 581960636] Future Scheduled 2022-04-09 Screening for [facility] Test 17:05:18 malignant neoplasm of of Med icine cervix (procedure) [code = 812614126] Future Scheduled 2022-04-09 TETANUS SHOT (ADULT) [employer] Test 17:05:18 [code = TETANUS SHOT of Medi cine (ADULT)] Future Scheduled 2022-04-09 EMG NEUROLOGY [code = Ordered: [facility] Test 11:11:17 NOCPT] 04/09/2022 of Medicine Future Scheduled 2022-04-09 EMG PM&R [code = 1 Occurrences [facility] Test 11:06:28 96367] starting of Medicine 04/09/2022 until 04/09/2023 Future Scheduled 2022-03-30 Pneumococcal Combined [facility] Test 08:28:24 (2 - PPSV23 or PCV20) of Med icine [code = Pneumococcal Combined (2 - PPSV23 or PCV20)] Future Scheduled 2022-03-30 Screening for [facility] Test 08:28:24 malignant neoplasm of of Med icine colon (procedure) [code = 956598533] Future Scheduled 2022-03-30 COVID-19 Vaccine (3 - Ba [facility] Test 08:28:24 Moderna risk series) of Medi cine [code = COVID-19 Vaccine (3 - Moderna risk series)] Future Scheduled 2022-03-30 FLU VACCINE > 6 MONTHS Postponed from [facility] Test 08:28:24 [code = FLU VACCINE > 01/22/2022 of Med icine 6 MONTHS] (Postpone Reason: Patient declined today) Future Scheduled 2022-03-[address] UP PLAN [facility] Test 08:28:24 [code = BMI FOLLOW UP of Med icine PLAN] Future Scheduled 2022-03-30 Screening for [facility] Test 08:28:24 malignant neoplasm of of Med icine breast (procedure) [code = 018914021] Future Scheduled 2022-03-30 Screening for [facility] Test 08:28:24 malignant neoplasm of of Med icine cervix (procedure) [code = 603758902] Future Scheduled 2022-03-30 TETANUS SHOT (ADULT) [employer] Test 08:28:24 [code = [...] of Med icine colon (procedure) [code = 408511121] Future Scheduled 2022-03-17 COVID-19 Vaccine (3 - [facility] [employer] Test 10:49:37 Moderna risk series) of Medi cine [code = COVID-19 Vaccine (3 - Moderna risk series)] Future Scheduled 2022-03-17 FLU VACCINE > 6 MONTHS Postponed from [facility] Test 10:49:37 [code = FLU VACCINE > 01/22/2022 of Med icine 6 MONTHS] (Postpone Reason: Patient declined today) Future Scheduled 2022-03-[address] Test 10:49:37 [code = BMI FOLLOW UP of Med icine PLAN] Future Scheduled 2022-03-17 Screening for [facility] Test 10:49:37 malignant neoplasm of of Med icine breast (procedure) [code = 642355138] Future Scheduled 2022-03-17 Screening for [facility] Test 10:49:37 malignant neoplasm of of Med icine cervix (procedure) [code = 520031115] Future Scheduled 2022-03-17 TETANUS SHOT (ADULT) [facility] Test 10:49:37 [code = TETANUS SHOT of Medi cine (ADULT)] Future Scheduled 2022-03-12 PARANEOPLASTIC PANEL, Ordered: [employer] Test 14:20:17 W RFL (SERUM) [code = 03/12/2022 of Med icine NOCPT] Future Scheduled 2022-03-12 LACTATE [code = Ordered: [facility] Test 14:20:17 [id number]] 03/12/2022 of Medicine Future Scheduled 2022-03-12 MRI BRAIN WO CONTRAST 1 Occurrences [employer] Test 14:20:17 [code = 75520-2] starting of Medicine 03/12/2022 until 03/12/2023 Future Scheduled 2022-03-08 Pneumococcal Combined [employer] Test 08:55:31 (2 - PPSV23 or PCV20) of Med icine [code = Pneumococcal Combined (2 - PPSV23 or PCV20)] Future Scheduled 2022-03-08 MEDICARE AWV (Initial) [employer] Test 08:55:31 [code = MEDICARE AWV of Medi cine (Initial)] Future Scheduled 2022-03-08 Screening for [facility] Test 08:55:31 malignant neoplasm of of Med icine colon (procedure) [code = 261777793] Future Scheduled 2022-03-08 COVID-19 Vaccine (3 - [employer] Test 08:55:31 Moderna risk series) of Medi cine [code = COVID-19 Vaccine (3 - Moderna risk series)] Future Scheduled 2022-03-08 FLU VACCINE > 6 MONTHS Postponed from [facility] Test 08:55:31 [code = FLU VACCINE > 01/22/2022 of Med icine 6 MONTHS] (Postpone Reason: Patient declined today) Future Scheduled 2022-03-08 BMI FOLLOW UP PLAN [employer] Test 08:55:31 [code = BMI FOLLOW UP of Med icine PLAN] Future Scheduled 2022-03-08 Screening for [facility] Test 08:55:31 malignant neoplasm of of Med icine breast (procedure) [code = 189631243] Future Scheduled 2022-03-08 Screening for [facility] Test 08:55:31 malignant neoplasm of of Med icine cervix (procedure) [code = 552904643] Future Scheduled 2022-03-08 TETANUS SHOT (ADULT) [employer] Test 08:55:31 [code = TETANUS SHOT of Medi cine (ADULT)] Future Scheduled 2022-03-07 CBC W/AUTO DIFF WITH Ordered: [employer] Test 12:22:04 PLATELETS [code = 03/07/2022 of Medicin e 56626-9] Future Scheduled 2022-03-07 COMPREHENSIVE Ordered: [facility] Test 12:22:04 METABOLIC PANEL [code 03/07/2022 of Med icine = 75277-4] Future Scheduled 2022-03-07 CK [code = 2157-6] [...] Future Scheduled 2022-03-07 CARDIOLIPIN ANTIBODIES Ordered: [facility] [employer] Test 12:22:04 [code = 48146] 03/07/2022 of Medicine Future Scheduled 2022-03-07 BETA-2 GLYCOPROTEIN Ordered: [employer] Test 12:22:04 ANTIBODIES [code = 03/07/2022 of Medici ne 1951-] Future Scheduled 2022-03-07 LUPUS ANTICOAGULANT Ordered: [employer] Test 12:22:04 WITH REFLEX [code = 03/07/2022 of Medic ine NOCPT] Future Scheduled 2022-03-07 RHEUMATOID FACTOR Ordered: [facility] Test 12:22:04 [code = 35843-5] 03/07/2022 of Medicine Future Scheduled 2022-03-07 LOADER MALT HOUSE ANTIBODY [code = Ordered: [employer] Test 12:22:04 NOCPT] 03/07/2022 of Medicine Future Scheduled 2022-03-07 BRADSHAW (SM) ANTIBODY Ordered: [employer] Test 12:22:04 [code = 44835-7] 03/07/2022 of Medicine Future Scheduled 2022-03-07 SJOGREN'S SS-A AND Ordered: [employer] Test 12:22:04 SS-B ANTIBODIES [code 03/07/2022 of Med icine = NOCPT] Future Scheduled 2022-03-07 DNA (DS) ANTIBODY, Ordered: [employer] Test 12:22:04 CRITHIDIA IFA W/RX 03/07/2022 of Medici ne TITER [code = 6457-6] Future Scheduled 2022-03-07 COMPLEMENT C3 AND C4 Ordered: [employer] Test 12:22:04 [code = NOCPT] 03/07/2022 of Medicine Future Scheduled 2022-03-07 URINALYSIS, COMPLETE Ordered: [facility] Medicine Test 12:22:04 W/REFLEX TO CULTURE 03/07/2022 of Medic ine [code = 73170-8] Future Scheduled 2022-03-07 RANDOM URINE Ordered: [facility]ge Test 12:22:04 PROTEIN/CREATININE 03/07/2022 of Analiliai ne [code = 2890-2] Future Scheduled 2022-03-07 Pneumococcal Combined [facility] Test 11:56:57 (2 - PPSV23 or PCV20) of Med icine [code = Pneumococcal Combined (2 - PPSV23 or PCV20)] Future Scheduled 2022-03-07 MEDICARE AWV (Initial) [facility] Test 11:56:57 [code = MEDICARE AWV of Medi cine (Initial)] Future Scheduled 2022-03-07 Screening for [facility] Test 11:56:57 malignant neoplasm of of Med icine colon (procedure) [code = 438859032] Future Scheduled 2022-03-07 COVID-19 Vaccine (3 - Ba [facility] Test 11:56:57 Moderna risk series) of Medi cine [code = COVID-19 Vaccine (3 - Moderna risk series)] Future Scheduled 2022-03-07 FLU VACCINE > 6 MONTHS Postponed from [facility] Test 11:56:57 [code = FLU VACCINE > 01/22/2022 of Med icine 6 MONTHS] (Postpone Reason: Patient declined today) Future Scheduled 2022-03-07 BMI FOLLOW UP PLAN [facility] Test 11:56:57 [code = BMI FOLLOW UP of Med icine PLAN] Future Scheduled 2022-03-07 Screening for [facility] Test 11:56:57 malignant neoplasm of of Med icine breast (procedure) [code = 099736046] Future Scheduled 2022-03-07 Screening for [facility] Test 11:56:57 malignant neoplasm of of Med icine cervix (procedure) [code = 414832772] Future Scheduled 2022-03-07 TETANUS SHOT (ADULT) [facility] Test 11:56:57 [code = TETANUS SHOT of Medi cine (ADULT)] Future Scheduled 2022-03-06 MRI CERVICAL SPINE WO 1 Occurrences [facility] Test 14:50:01 CONTRAST [code = starting of Medicine 19673-5] 03/06/2022 until 03/06/2023 Future Scheduled 2022-02-22 INFLUENZA [...] (#1)] Future Scheduled 2022-02-21 Human immunodeficiency B [facility] Test 12:57:58 virus screening of Medicine (procedure) [code = 945819528] Future Scheduled 2022-02-21 Pneumococcal Combined Ba [facility] Test 12:57:58 (2 - PPSV23 or PCV20) of Med icine [code = Pneumococcal Combined (2 - PPSV23 or PCV20)] Future Scheduled 2022-02-21 MEDICARE AWV (Initial) B [facility] Test 12:57:58 [code = MEDICARE AWV of [employer] (Initial)] Future Scheduled 2022-02-21 Screening for [facility] Test 12:57:58 malignant neoplasm of of Med icine colon (procedure) [code = 240069796] Future Scheduled 2022-02-21 COVID-19 Vaccine (3 - Ba [facility] Test 12:57:58 Moderna risk series) of Medi cine [code = COVID-19 Vaccine (3 - Moderna risk series)] Future Scheduled 2022-02-21 FLU VACCINE > 6 MONTHS Postponed from [facility] Test 12:57:58 [code = FLU VACCINE > 01/22/2022 of Med icine 6 MONTHS] (Postpone Reason: Patient declined today) Future Scheduled 2022-02-21 BMI FOLLOW UP PLAN [employer] Test 12:57:58 [code = BMI FOLLOW UP of Med icine PLAN] Future Scheduled 2022-02-21 Screening for [facility] Test 12:57:58 malignant neoplasm of of Med icine breast (procedure) [code = 549915495] Future Scheduled 2022-02-21 Screening for [facility] lege Test 12:57:58 malignant neoplasm of of Med icine cervix (procedure) [code = 732157939] Future Scheduled 2022-02-21 TETANUS SHOT (ADULT) [facility] Test 12:57:58 [code = TETANUS SHOT of Medi cine (ADULT)] Future Scheduled 2022-02-21 URINALYSIS, COMPLETE Ordered: [facility] Test 12:24:24 W/REFLEX TO CULTURE 02/21/2022 of Medic ine [code = 33333-0] Future Scheduled 2022-02-21 CBC W/AUTO DIFF WITH Ordered: [facility] Test 12:16:08 PLATELETS [code = 02/21/2022 of Medicin e 31237-9] Future Scheduled 2022-02-21 COMPREHENSIVE Ordered: [facility] Test 12:16:08 METABOLIC PANEL [code 02/21/2022 of Med icine = 53498-4] Future Scheduled 2022-01-28 Screening for [facility] Test 10:06:50 malignant neoplasm of of Med icine breast (procedure) [code = 800192432] Future Scheduled 2022-01-28 Human immunodeficiency [facility] Test 10:06:50 virus screening of Medicine (procedure) [code = 857062622] Future Scheduled 2022-01-28 Pneumococcal Combined [facility] Test 10:06:50 (2 - PPSV23 or PCV20) of Med icine [code = Pneumococcal Combined (2 - PPSV23 or PCV20)] Future Scheduled 2022-01-28 Screening for [facility] Test 10:06:50 malignant neoplasm of of Med icine colon (procedure) [code = 442666380] Future Scheduled 2022-01-28 COVID-19 Vaccine (3 - [facility] Test 10:06:50 Moderna risk series) of Medi cine [code = COVID-19 Vaccine (3 - Moderna risk series)] Future Scheduled 2022-01-28 FLU VACCINE > 6 MONTHS Postponed from [facility] Test 10:06:50 [code = FLU VACCINE > 01/22/2022 of Med icine 6 MONTHS] (Postpone Reason: Patient declined today) Future Scheduled 2022-01-[address]AN [facility] Test 10:06:50 [code = BMI FOLLOW UP of Med icine PLAN] Future Scheduled 2022-01-28 Screening for [facility] Test 10:06:50 malignant neoplasm of of Med icine cervix (procedure) [code = 730191596] Future Scheduled 2022-01-28 TETANUS SHOT (ADULT) [facility] Test 10:06:50 [code = TETANUS SHOT of Medi cine (ADULT)] Future Scheduled 2022-01-24 Screening for [facility] Test 12:15:08 malignant neoplasm of of Med icine breast (procedure) [code = 399051599] Future Scheduled 2022-01-24 Human immunodeficiency [facility] Test 12:15:08 virus screening of Medicine (procedure) [code = 114393623] Future Scheduled 2022-01-24 Pneumococcal Combined [facility] Test 12:15:08 (2 - PPSV23 or PCV20) of Med icine [code = Pneumococcal Combined (2 - PPSV23 or PCV20)] Future Scheduled 2022-01-24 Screening for [facility] Test 12:15:08 malignant neoplasm of of Med icine colon (procedure) [code = 698544065] Future Scheduled 2022-01-24 COVID-19 Vaccine (3 - [facility] Test 12:15:08 Moderna risk series) of Medi cine [code = COVID-19 Vaccine (3 - Moderna risk series)] Future Scheduled 2022-01-24 FLU VACCINE > 6 MONTHS Postponed from [facility] Test 12:15:08 [code = FLU VACCINE > 01/22/2022 of Med icine 6 MONTHS] (Postpone Reason: Patient declined today) Future Scheduled 2022-01-[address] [facility] Test 12:15:08 [code = BMI FOLLOW UP of Med icine PLAN] Future Scheduled 2022-01-24 Screening for [facility] Test 12:15:08 malignant neoplasm of of Med icine cervix (procedure) [code = 671777550] Future Scheduled 2022-01-24 TETANUS SHOT (ADULT) [facility] Test 12:15:08 [code = TETANUS SHOT of Medi cine (ADULT)] Future Scheduled 2022-01-23 Screening for [facility] Test 14:14:09 malignant neoplasm of of Med icine breast (procedure) [code = 119648195] Future [facility]22-01-23 [facility] of Medicine (procedure) [code = 356772014] Future Scheduled 2022-01-23 Pneumococcal Combined [facility] Test 14:14:09 (2 - PPSV23 or PCV20) of Med icine [code = Pneumococcal Combined (2 - PPSV23 or PCV20)] Future Scheduled 2022-01-23 Screening for [facility] Test 14:14:09 malignant neoplasm of of Med icine colon (procedure) [code = 953307368] Future Scheduled 2022-01-23 COVID-19 Vaccine (3 - [facility] Test 14:14:09 Moderna risk series) of Medi cine [code = COVID-19 Vaccine (3 - Moderna risk series)] Future Scheduled 2022-01-23 [facility] 14:14:09 [code = FLU VACCINE > of Med icine 6 MONTHS] Future Scheduled 2022-01-23 [facility] 14:14:09 [code = BMI FOLLOW UP of Med icine PLAN] Future Scheduled 2022-01-23 Screening for [facility] Test 14:14:09 malignant neoplasm of of Med icine cervix (procedure) [code = 994655410] Future Scheduled 2022-01-23 TETANUS SHOT (ADULT) [facility] Test 14:14:09 [code = TETANUS SHOT of Medi cine (ADULT)] Future Scheduled 2021-11-26 Screening for [facility] Test 15:11:10 malignant neoplasm of of Med icine breast (procedure) [code = 338144991] Future Scheduled 2021-11-26 [facility] 15:11:10 virus screening of Medicine (procedure) [code = 705948660] Future Scheduled 2021-11-26 Pneumococcal Combined [facility] 15:11:10 (2 - PPSV23 or PCV20) of Med icine [code = Pneumococcal Combined (2 - PPSV23 or PCV20)] Future Scheduled 2021-11-26 Screening for [facility] Test 15:11:10 malignant neoplasm of of Med icine colon (procedure) [code = 713769487] Future Scheduled 2021-11-26 COVID-19 Vaccine (3 - [...] icine PLAN] Future Scheduled 2021-11-26 Screening for [facility] Test 15:11:10 malignant neoplasm of of Med icine cervix (procedure) [code = 594567238] Future Scheduled 2021-11-26 TETANUS SHOT (ADULT) [employer] [facility] Test 15:11:10 [code = TETANUS SHOT of Medi cine (ADULT)] Future Scheduled 2021-11-23 STUDY TILT [code = 1 Occurrences [employer] Test 13:54:54 50489] starting of Medicine 11/23/2021 until 11/23/2022 Future Scheduled 2021-09-08 Screening for [facility] Test 14:45:55 malignant neoplasm of of Med icine breast (procedure) [code = 689994071] Future Scheduled 2021-09-08 BMI FOLLOW UP PLAN [employer] Test 14:45:55 [code = BMI FOLLOW UP of Med icine PLAN] Future Scheduled 2021-09-08 Human immunodeficiency [facility] [employer] [employer] Test 14:45:55 virus screening of Medicine (procedure) [code = 147484085] Future Scheduled 2021-09-08 Pneumococcal Combined [facility] [employer] Test 14:45:55 (2 of 4 - PPSV23) of Medicin e [code = Pneumococcal Combined (2 of 4 - PPSV23)] Future Scheduled 2021-09-08 Screening for [facility] Test 14:45:55 malignant neoplasm of of Med icine colon (procedure) [code = 801546498] Future Scheduled 2021-09-08 COVID-19 Vaccine (3 - [facility] [employer] Test 14:45:55 Moderna risk 4-dose of Medic ine series) [code = COVID-19 Vaccine (3 - Moderna risk 4-dose series)] Future Scheduled 2021-09-08 Screening for [facility] Test 14:45:55 malignant neoplasm of of Med icine cervix (procedure) [code = 986079386] Future Scheduled 2021-09-08 TETANUS SHOT (ADULT) [employer] [facility] [employer] Test 14:45:55 [code = TETANUS SHOT of Medi cine (ADULT)] Future Scheduled 2021-09-08 2019 CORONOVIRUS Ordered: [facility] Test 14:26:57 (COVID-19) ANTIBODY, 09/08/2021 of Medi cine IGG, (S) [code = NOCPT] Future Scheduled 2021-07-02 Screening for [facility] Test 05:39:12 malignant neoplasm of of Med icine breast (procedure) [code = 295588873] Future Scheduled 2021-07-02 BMI FOLLOW UP PLAN [facility] Test 05:39:12 [code = BMI FOLLOW UP of Med icine PLAN] Future Scheduled 2021-07-02 Human immunodeficiency [facility] Test 05:39:12 virus screening of Medicine (procedure) [code = 287748428] Future Scheduled 2021-07-02 Pneumococcal Combined [facility] Test 05:39:12 (2 of 4 - PPSV23) of Medicin e [code = Pneumococcal Combined (2 of 4 - PPSV23)] Future Scheduled 2021-07-02 Screening for [facility] Test 05:39:12 malignant neoplasm of of Med icine colon (procedure) [code = 094985156] Future Scheduled 2021-07-02 Screening for [facility] Test 05:39:12 malignant neoplasm of of Med icine cervix (procedure) [code = 550330833] Future Scheduled 2021-07-02 TETANUS SHOT (ADULT) [employer] Test 05:39:12 [code = TETANUS SHOT of Medi cine (ADULT)] Future Scheduled 2021-06-27 [place] OCCUP[place] Ordered: [facility] [employer] Test 13:19:30 THERAPY EVAL LOW 06/27/2021 of Medicine COMPLEX 30 MINS [code = 23200] Future Scheduled 2021-06-27 [place] CANALITH Ordered: [facility] Test 13:19:30 REPOSITIONING 06/27/2021 of Medicine PROCEDURE, PER DAY [code = 67058] Future Scheduled 2021-06-27 Screening for [facility] Test 11:33:45 malignant neoplasm of of Med icine breast (procedure) [code = 790176462] Future Scheduled 2021-06-27 BMI FOLLOW UP PLAN [employer] Test 11:33:45 [code = BMI FOLLOW UP of Med icine PLAN] Future Scheduled 2021-06-27 Human immunodeficiency [facility] [employer] Test 11:33:45 virus screening of Medicine (procedure) [code = 866210927] Future Scheduled 2021-06-27 Pneumococcal Combined [facility] [employer] Test 11:33:45 (2 of 4 - PPSV23) of Medicin e [code = Pneumococcal Combined (2 of 4 - PPSV23)] Future Scheduled 2021-06-27 Screening for [facility] Test 11:33:45 malignant neoplasm of of Med icine colon (procedure) [code = 352095933] Future Scheduled 2021-06-27 Screening for [facility] Test 11:33:45 malignant neoplasm of of Med icine cervix (procedure) [code = 681444146] Future Scheduled 2021-06-27 TETANUS SHOT (ADULT) [employer] [facility] Test 11:33:45 [code = TETANUS SHOT of Medi cine (ADULT)] Future Scheduled 2021-05-03 Screening for [facility] Test 13:26:26 malignant neoplasm of of Med icine breast (procedure) [code = 378360966] Future Scheduled 2021-05-03 BMI FOLLOW UP PLAN [employer] Test 13:26:26 [code = BMI FOLLOW UP of Med icine PLAN] Future Scheduled 2021-05-03 Human immunodeficiency [facility] [employer] Test 13:26:26 virus screening of Medicine (procedure) [code = 462795324] Future Scheduled 2021-05-03 Screening for [facility] Test 13:26:26 malignant neoplasm of of Med icine colon (procedure) [code = 291917689] Future Scheduled 2021-05-03 Screening for [facility] Test 13:26:26 malignant neoplasm of of Med icine cervix (procedure) [code = 941078090] Future Scheduled 2021-05-03 TETANUS SHOT (ADULT) [employer] [facility] Test 13:26:26 [code = TETANUS SHOT of Medi cine (ADULT)] Future Scheduled 2021-05-03 CBC W/AUTO DIFF WITH Ordered: [employer] [facility] [employer] Test 11:50:49 PLATELETS [code = 05/03/2021 of Medicin e 66752-9] Future Scheduled 2021-05-03 COMPREHENSIVE Ordered: [facility] Test 11:50:49 METABOLIC PANEL [code 05/03/2021 of Med icine = 08169-6] Future Scheduled 2021-05-03 SEDIMENTATION RATE Ordered: [employer] Test 11:50:49 MODIFIED AREN 05/03/2021 of Medic ine [code = 4537-7] Future Scheduled 2021-05-03 C-REACTIVE PROTEIN Ordered: [employer] Test 11:50:49 [code = 1988-5] 05/03/2021 of Medicine Future Scheduled 2021-05-03 QUANTIFERON TB GOLD Ordered: [employer] Test 11:50:49 PLUS 4 TUBES [code = 05/03/2021 of Medi cine 92181-0] Future Scheduled 2021-03-08 Screening for [facility] Test 00:12:52 malignant neoplasm of of Med icine breast (procedure) [code = 837018484] Future Scheduled 2021-03-08 BMI FOLLOW UP PLAN [employer] Test 00:12:52 [code = BMI FOLLOW UP of Med icine PLAN] Future Scheduled 2021-03-08 Human immunodeficiency [facility] [employer] Test 00:12:52 virus screening of Medicine (procedure) [code = 045957516] Future Scheduled 2021-03-08 FLU VACCINE > 6 MONTHS [employer] Test 00:12:52 [code = FLU VACCINE > of Med icine 6 MONTHS] Future Scheduled 2021-03-08 Screening for [facility] Test 00:12:52 malignant neoplasm of of Med icine colon (procedure) [code = 712814111] Future Scheduled 2021-03-08 Screening for [facility] Test 00:12:52 malignant neoplasm of of Med icine cervix (procedure) [code = 246236165] Future Scheduled 2021-03-08 TETANUS SHOT (ADULT) [employer] Test 00:12:52 [code = TETANUS SHOT of Medi cine (ADULT)] Future Scheduled 2021-03-08 Screening for [facility] Test 00:12:52 malignant neoplasm of of Med icine breast (procedure) [code = 406229946] Future Scheduled 2021-03-08 BMI FOLLOW UP PLAN [employer] Test 00:12:52 [code = BMI FOLLOW UP of Med icine PLAN] Future Scheduled 2021-03-08 Human immunodeficiency [facility] [employer] Test 00:12:52 virus screening of Medicine (procedure) [code = 279469977] Future Scheduled 2021-03-08 FLU VACCINE > 6 MONTHS [employer] Test 00:12:52 [code = FLU VACCINE > of Med icine 6 MONTHS] Future Scheduled 2021-03-08 Screening for [facility] Test 00:12:52 malignant neoplasm of of Med icine colon (procedure) [code = 786233570] Future Scheduled 2021-03-08 Screening for [facility] Test 00:12:52 malignant neoplasm of of Med icine cervix (procedure) [code = 680113107] Future Scheduled 2021-03-08 TETANUS SHOT (ADULT) [employer] Test 00:12:52 [code = TETANUS SHOT of Medi cine (ADULT)] Future Scheduled 2020-12-02 CBC W/AUTO DIFF WITH Ordered: [employer] [facility] Test 11:55:43 PLATELETS [code = 12/02/2020 of Medicin e 36945-3] Future Scheduled 2020-12-02 COMPREHENSIVE Ordered: [facility] Test 11:55:43 METABOLIC PANEL [code 12/02/2020 of Med icine = 02905-4] Future Scheduled 2020-12-02 Screening for [facility] Test 11:34:58 malignant neoplasm of of Med icine breast (procedure) [code = 537488694] Future Scheduled 2020-12-02 BMI FOLLOW UP PLAN [employer] Test 11:34:58 [code = BMI FOLLOW UP of Med icine PLAN] Future Scheduled 2020-12-02 Human immunodeficiency [facility] [employer] Test 11:34:58 virus screening of Medicine (procedure) [code = 691376114] Future Scheduled 2020-12-02 FLU VACCINE > 6 MONTHS [employer] Test 11:34:58 [code = FLU VACCINE > of Med icine 6 MONTHS] Future Scheduled 2020-12-02 Screening for [facility] Test 11:34:58 malignant neoplasm of of Med icine colon (procedure) [code = 958472386] Future Scheduled 2020-12-02 Screening for [facility] Test 11:34:58 malignant neoplasm of of Med icine cervix (procedure) [code = 148596583] Future Scheduled 2020-12-02 TETANUS SHOT (ADULT) [employer] Test 11:34:58 [code = TETANUS SHOT of Medi cine (ADULT)] Future Scheduled 2020-11-14 Screening for [facility] Test 09:41:53 malignant neoplasm of of Med icine breast (procedure) [code = 216585339] Future Scheduled 2020-11-14 BMI FOLLOW UP PLAN [facility] [employer] [facility] 09:41:53 [code = BMI FOLLOW UP of Med icine PLAN] Future Scheduled 2020-11-14 [facility] 09[facility]41:53 virus screening of Medicine (procedure) [code = 423816133] Future Scheduled 2020-11-14 FLU VACCINE > 6 MONTHS [employer] Test 09:41:53 [code = FLU VACCINE > of Med icine 6 MONTHS] Future Scheduled 2020-11-14 Screening for [facility] Test 09:41:53 malignant neoplasm of of Med icine colon (procedure) [code = 838440647] Future Scheduled 2020-11-14 Screening for [facility] Test 09:41:53 malignant neoplasm of of Med icine cervix (procedure) [code = 403808977] Future Scheduled 2020-11-14 TETANUS SHOT (ADULT) [employer] [facility] Test 09:41:53 [code = TETANUS SHOT of Medi cine (ADULT)] Diagnostic Test 2019-04-13 [LH] GC/CT by Amp [facility] 00:00:00 (APTIMA) [code = [LH] GC/CT by Amp Det (APTIMA)] Diagnostic Test 2019-04-09 Colonoscopy [code = [facility] 00:00:00 [id number]] Diagnostic Test 2019-04-09 Colonoscopy [code = [facility] 00:00:00 [id number]] Diagnostic Test 2019-04-09 Colonoscopy [code = [facility] 00:00:00 [id number]] Diagnostic Test 2019-04-08 MR Shoulder [facility] 00:00:00 contrast 63634 [code = 00711] Diagnostic Test 2019-04-08 MR Shoulder wo [facility] 00:00:00 contrast 76717 [code = 34223] Diagnostic Test 2019-03-30 Colonoscopy [code = [facility] 00:00:00 [id number]] Diagnostic Test 2019-03-30 Colonoscopy [code = [facility] 00:[facility]:00 [id number]] Diagnostic Test 2019-03-30 Colonoscopy [code = [facility] 00:00:00 [id number]] Diagnostic Test 2019-03-30 Colonoscopy [code = [facility] 00:00:00 [id number]] Diagnostic Test 2019-01-14 Complete PFTs w/DLCO [facility] 00:00:00 and Lung Volumes [code = Complete PFTs w/DLCO and Lung Volumes] Diagnostic Test 2019-01-14 [facility] - Sleep [facility] 00:00:00 Study Split Night [code = [facility] Sleep [facility] - Sleep Study Split Night] Diagnostic Test 2019-01-14 [N] 2D Echo complete, [facility] 00:00:00 with Doppler 79393 [code = [N] 2D Echo complete, with Doppler 11675] Diagnostic Test 2019-01-14 [facility] 00:00:00 Study Split Night [code = [facility] Sleep [facility] - Sleep Study Split Night] Diagnostic Test 2019-01-14 Complete PFTs w[facility]CO [facility] 00:00:00 and Lung Volumes [code = Complete PFTs w/DLCO and Lung Volumes] Diagnostic Test 2019-01-14 [facility] 00:00:00 Study Split Night [code = [facility] Sleep [facility] - Sleep Study Split Night] Diagnostic Test 2019-01-14 [N] 2D Echo complete, [facility] 00:00:00 with Doppler 66167 [code = [N] 2D Echo complete, with Doppler 06107] Future Scheduled [address] [facility] Test 00:00:00 malignant neoplasm of Medica l Center cervix (procedure) [code = 042046426] Future Scheduled [address] [facility] Test 00:00:00 malignant neoplasm of Medica l Center cervix (procedure) [code = 957243994] Future Scheduled [address] [facility] Test 00:00:00 malignant neoplasm of Medica l Center cervix (procedure) [code = 268690965] Future Scheduled [address] [facility] Test 00:00:00 malignant neoplasm of Medica l Center cervix (procedure) [code = 083567924] Future Scheduled [address] [facility] Test 00:00:00 malignant neoplasm of Medica l Center cervix (procedure) [code = 933367628] Future Scheduled 1998 HEPATITIS C SCREENING CH [...] RATE Ordered: [employer] [facility] MODIFIED [facility] 05/12/2020 of Medic ine [code = 4537-7] Future Scheduled HLA-B27 ANTIGEN [code Ordered: [facility] [employer] [facility] = 88854] 05/12/2020 of Medicine Future Scheduled HEPATITIS B SURFACE AB Ordered: [facility] [employer] [facility] QUANT [code = 01540-7] 05/12/2020 of [facility] Future Scheduled HEPATITIS B SURFACE Ordered: [employer] [facility] ANTIGEN [code = 05/12/2020 of [facility] 5196-1] Future Scheduled HEPATITIS B CORE AB Ordered: [employer] [facility] TOTAL W/REFL IGM [code 05/12/2020 of Al dicine = 05745-1] Future Scheduled HEPATITIS C ANTIBODY Ordered: [employer] [facility] [code = 06550-5] 05/12/2020 of Medicine Future Scheduled QUANTIFERON TB GOLD Ordered: [employer] [facility] PLUS 4 TUBES [code = 05/12/2020 of [facility] 07598-1] Future Scheduled BMI FOLLOW UP PLAN [employer] Test [code = BMI FOLLOW UP of Med icine PLAN] Future Scheduled HEPATITIS C SCREENING [employer] [facility] [code = HEPATITIS C of Medic ine SCREENING] Future Scheduled HIV SCREENING [code = [employer] [facility] HIV SCREENING] of Medicine Future Scheduled CERVICAL CANCER [facility] Test SCREENING 3 YEAR of Medicine FOLLOW UP [code = CERVICAL CANCER SCREENING 3 YEAR FOLLOW UP] Future Scheduled COLON CANCER [facility] SCREENING: COLONOSCOPY of Me dicine [code = COLON CANCER SCREENING: COLONOSCOPY] Future Scheduled TETANUS SHOT (ADULT) [employer] Test [code = TETANUS SHOT of Medi cine (ADULT)] Future Scheduled C3 COMPLEMENT [code = Ordered: [employer] [facility] 4485-9] 05/12/2020 of Medicine Future Scheduled C4 COMPLEMENT [code = Ordered: [employer] [facility] 4498-2] 05/12/2020 of Medicine Future Scheduled CBC W/AUTO DIFF WITH Ordered: [employer] [facility] PLATELETS [code = 05/12/2020 of Medicin e 40342-6] Future Scheduled COMPREHENSIVE Ordered: [facility] Test METABOLIC PANEL [code 05/12/2020 of Med icine = 57356-7] Future Scheduled TRYPTASE [code = Ordered: [facility] Test 39150] 05/12/2020 of Medicine Future Scheduled TSH [code = 41645-8] Ordered: [employer] [facility] 05/12/2020 of Medicine Future Scheduled BMI FOLLOW UP PLAN [employer] Test [code = BMI FOLLOW UP of Med icine PLAN] Future Scheduled HEPATITIS C SCREENING [employer] Test [code = HEPATITIS C of Medic ine SCREENING] Future Scheduled HIV SCREENING [code = [employer] [facility] HIV SCREENING] of Medicine Future Scheduled CERVICAL CANCER [facility] [employer] Test SCREENING 3 YEAR of Medicine FOLLOW UP [code = CERVICAL CANCER SCREENING 3 YEAR FOLLOW UP] Future Scheduled COLON CANCER [facility] Test SCREENING: COLONOSCOPY of Me dicine [code = COLON CANCER SCREENING: COLONOSCOPY] Future Scheduled TETANUS SHOT (ADULT) [employer] Test [code = TETANUS SHOT of Medi cine (ADULT)] Future Scheduled MAMMOGRAM ANNUAL [code [employer] [facility] = MAMMOGRAM ANNUAL] of Medic ine Future Scheduled BMI FOLLOW UP PLAN [employer] Test [code = BMI FOLLOW UP of Med icine PLAN] Future Scheduled HEPATITIS C SCREENING [employer] Test [code = HEPATITIS C of Medic ine SCREENING] Future Scheduled HIV SCREENING [code = [employer] [facility] HIV SCREENING] of Medicine Future Scheduled CERVICAL CANCER [facility] [employer] Test SCREENING 3 YEAR of Medicine FOLLOW UP [code = CERVICAL CANCER SCREENING 3 YEAR FOLLOW UP] Future Scheduled COLON CANCER [facility] Test SCREENING: COLONOSCOPY of Me dicine [code = COLON CANCER SCREENING: COLONOSCOPY] Future Scheduled TETANUS SHOT (ADULT) [facility] Test [code = TETANUS SHOT of Medi cine (ADULT)] Future Scheduled MRI SACRUM WO CONTRAST 1 Occurrences [facility] Test [code = 61950] starting of Medicine 05/12/2020 until 05/12/2021 Encounters Start End Encounter Admission Attending Care Care Encounter Source Date/Time Date/Time Type Type Clinicians Facility Department ID 2021-12-21 Outpatient [facility]I GONZALEZ [facility] [id number] [facility] 11:10:36 [facility] 2021-11-15 Outpatient ANDI GONZALEZ [facility] [id number] [facility] 13[facility]45:13 [facility] 2021-11-15 Outpatient ANDI GONZALEZ [facility] [id number] [facility] 13:26:29 [facility] 2021-09-15 Outpatient GONZALEZ, [facility] [id number] [facility] 08:29:40 [facility] 2021-08-17 Outpatient GONZALEZ, [facility] Surgery [id number] [facility] 11:05:11 [facility] 2021-03-31 Outpatient TOPHER, SLE Surgery [id number] [facility] 23:55:24 [facility] 2021-03-31 Outpatient TOPHER, SLEH Surgery [id number] [facility] 23:55:19 [facility] 2021-03-29 Outpatient KWAPISZ, SLEH Surgery [id number] [facility] 03:49:02 [facility] 2021-03-29 Outpatient KWAPISZ, SLEH Surgery [id number] [facility] 03:04:33 [facility] 2020-11-14 Outpatient [facility] [id number] [place] 16:18:38 [facility] 2020-10-29 [facility] [id number] [place] 02:42:50 [facility] 2019-10-23 Outpatient NELSON [facility] [id number] [facility] 07:24:40 ELOISE 2022-07-26 2022-07-26 Outpatient JUAN DANIEL [facility] [id number] [facility] 15:02:08 16:21:14 JOSE ANTONIO RAINEY of Medicin e 2022-07-26 2022-07-26 Outpatient EMPERATRIZ [facility] [id number] [facility] 11:49:08 15:54:16 ABDOULAYE Collemarc e of Medicin e 2022-07-20 2022-07-20 Outpatient DENNIS [facility] [id number] [facility] 12:51:39 13:14:04 [facility] [employer] [facility]in [facility] 2022-07-18 2022-07-19 Outpatient MARK SCHAEFFER [facility] [id number] [facility] 11:41:32 13:55:04 Colleg e of Medicin e 2022-07-19 2022-07-19 Office [facility] 1.2.840.114 [id number] Univers 11:40:00 12:00:00 Visit Mulu SPECIALTY 350.1.13.10 ity of [facility] 4.2.7.2.686 [facility] AT [id number] [address] 2022-07-19 2022-07-19 [facility] [id number] Univers 11:40:00 11:40:00 MULU ity [facility] 2022-07-07 2022-07-15 Inpatient ER [facility] Surgery [id number] [facility] 21:57:00 15:03:00 [facility] 2022-07-07 2022-07-15 [facility] ER [facility] [id number] 21:57:00 15:03:00 Encounter [facility] 2022-07-07 2022-07-15 [facility] [id number] 21:57:00 15:03:00 Encounter [facility] 2022-07-15 2022-07-[address] [facility] [id number] 00:00:00 00:00:00 Only Amanda [facility] 2022-07-15 2022-07-[address] [facility] [id number] 00:00:00 00:00:00 Only Amanda [facility] 2022-07-12 2022-07-12 Outpatient ABRAHAM, BUCKM [facility] [id number] [facility] 00:00:00 00:00:00 TRACIE Paniagua e of Medicin e 2022-07-10 2022-07-10 Anesthesia Smith-Eng [facility] [id number] [facility] 17:17:00 17:17:00 Event [facility] 2022-07-10 2022-07-10 Anesthesia Smith-Eng [facility] [id number] [facility] 17:17:00 17:17:00 [facility] 2022-07-10 2022-07-10 Surgery Virtual, [facility] [id number] 12:35:00 12:54:00 [facility] 2022-07-10 2022-07-10 Surgery Virtual, [facility] [id number] 12:35:00 12:54:00 [facility] 2022-07-06 2022-07-06 Emergency [facility] Emergency [id number] [facility] 11:06:00 14:27:00 [facility] 2022-07-06 2022-07-06 Emergency ER Surles, [facility] [id number] 11:06:00 14:27:00 [facility] 2022-07-06 2022-07-06 [facility] [id number] 11:06:00 14:27:00 [facility] 2022-07-06 2022-07-06 Outpatient PASCAL, BCM [facility] [id number] [facility] 10:18:07 10:18:07 ILIA Paniagua e of Medicin e 2022-07-06 2022-07-06 Travel [facility] [id number] [facility] 00:00:00 00:00:00 [facility] 2022-07-06 2022-07-06 Travel [facility] [id number] [facility] 00:00:00 00:00:00 [facility] 2022-07-05 2022-07-05 Outpatient GRACE [facility] [id number] [facility] 13:49:31 13:55:53 [place] [employer] [facility] 2022-07-05 2022-07-05 Outpatient PARISH FAM [facility] [id number] [facility] 10:16:37 12:36:35 Colleg e of Medicin e 2022-07-04 2022-07-04 [facility] 1.2.840.114 [id number] Univers 15:27:43 23:59:00 Encounter Joseluis WHITE 350.1.13.10 [facility] 4.2.7.2.686 [facility] [id number] [address] 2022-07-04 2022-07-04 Outpatient Marion [facility] [id number] Univers 14:31:58 15:26:00 KERRY valdez [facility] 2022-07-04 2022-07-04 [facility] 1.2.840.114 [id number] Univers 14:15:00 15:26:00 Encounter Kerry WHITE 350.1.13.10 [facility] 4.2.7.2.686 [facility] [id number] [address] 2022-07-03 2022-07-03 Outpatient [facility] [id number] [facility] 10:46:32 14:12:19 Colleg e of Medicin e 2022-07-03 2022-07-03 Outpatient CLEMENTE [facility] [id number] [facility] 09:08:44 11:18:15 THOMAS mendoza of Medicin e 2022-07-02 2022-07-02 Outpatient Marion [facility] [id number] Univers 13:00:00 13:00:00 JHOANA valdez [facility] 2022-06-29 2022-06-29 Outpatient [facility] [id number] Univers 13:47:53 23:59:00 KERRY valdez [facility] 2022-06-29 2022-06-29 [facility] 1.2.840.114 [id number] Univers 13:47:53 23:59:00 Encounter Kerry WHITE 350.1.13.10 ity of [place] 4.2.7.2.686 [facility] [id number] [facility] [address] 2022-06-29 2022-06-29 Office [facility] 1.2.136.241 [id number] Univers 09:30:00 10:00:00 Visit Kerry FLORES 350.1.13.10 it y of CLEAR 4.2.7.2.686 [facility] [id number] [place] [address] [address] OFFICE BUILDING 2022-06-28 2022-06-28 Outpatient TORIE DONOHUE [facility] [id number] [facility] 16:45:03 16:49:48 Arcelia caballero of Medicin e 2022-06-28 2022-06-28 Outpatient R ELROY, [facility] [id number] Univers 12:00:00 12:00:00 ATTENDING [facility] 2022-06-22 2022-06-22 Outpatient R ROSY, [facility] [id number] Univers 15:50:00 15:50:00 SYDNIE [facility] 2022-06-21 2022-06-21 Outpatient MEG [facility] [id number] [facility] 15:13:56 15:34:24 , PERCY caballero of Medicin e 2022-06-20 2022-06-21 Inpatient [facility] Surgery [id number] [facility] 05:43:00 15:01:00 JOSE ANTONIO RAINEY 2022-06-20 2022-06-21 [facility] [id number] 05:43:00 15:01:00 Encounter Jose Antonio rainey [facility] 2022-06-20 2022-06-21 [facility] [id number] 05:43:00 15:01:00 Encounter Jose Antonio rainey [facility] 2022-06-20 2022-06-20 Outpatient [facility] [id number] [facility] 05:43:00 23:59:00 Colleg e of Medicin e 2022-06-20 2022-06-[address] [facility] [id number] 10:49:00 12:26:00 Event Alejandro [facility] 2022-06-20 2022-06-[address] [facility] [id number] 10:49:00 12:26:00 Event Alejandro [facility] 2022-06-20 2022-06-20 [facility] [id number] 10:10:00 12:10:00 Jose Antonio rainey [facility] 2022-06-20 2022-06-20 [facility] [id number] 10:10:00 12:10:00 Jose Antonio rainey [facility] 2022-06-20 2022-06-20 Travel [facility] [id number] [facility] 00:00:00 00:00:00 [facility] 2022-06-20 2022-06-20 Travel [facility] [id number] [facility] 00:00:00 00:00:00 [facility] 2022-06-19 2022-06-19 Outpatient [facility] [id number] Univers 13:14:16 23:59:00 LEELA valdez [facility] 2022-06-19 2022-06-19 [facility][1] 1.2.840.114 [id number] Univers 13:14:16 23:59:00 Encounter Leela WHITE 350.1.13.10 ity [facility] 4.2.7.2.686 [facility] [id number] [address] 2022-06-19 2022-06-19 Outpatient [facility] [id number] [facility] 00:00:00 23:59:00 Colleg e of Medicin e 2022-06-19 2022-06-19 Emergency ER TEMO [facility] Emergency 20 [id number] SLE 18:33:00 20:49:00 , [facility] 2022-06-19 2022-06-19 Emergency [facility] [id number] 18:33:00 20:49:00 , [facility] 2022-06-19 2022-06-19 Emergency [facility] [id number] 18:33:00 20:49:00 , [facility] 2022-06-19 2022-06-19 Outpatient MICHELLE JIMENEZ [facility] [id number] [facility] 13:07:41 14:06:37 MITA caballero of Medicin e 2022-06-19 2022-06-19 Telephone FELY Gallegos 1.2.840.114 [id number] Univers 00:00:00 00:00:00 [facility] 350.1.13.10 it y of CARE 4.2.7.2.686 Alfonso CANO [id number] Al dic[address] 2022-06-19 2022-06-[address] [facility] [id number] 00:00:00 00:00:00 Only [facility] 2022-06-19 2022-06-19 Travel [facility] [id number] [facility] 00:00:00 00:00:00 [facility] 2022-06-19 2022-06-[address] [facility] [id number] 00:00:00 00:00:00 Only [facility] 2022-06-19 2022-06-19 Travel [facility] [id number] [facility] 00:00:00 00:00:00 [facility] 2022-06-18 2022-06-18 Telephone Pastor HIJUANITO 1.2.113.011 [id number] Univers 00:00:00 00:00:00 Leela [facility] 350.1.13.10 it y of [place] 4.2.7.2.686 Tim as SILVER?BLEA [id number] Al dical [address] MEDICAL OFFICE BUILDING 2022-06-18 2022-06-18 Nurse ZIYAD Mendenhall 1.2.840.114 [id number] Univers 00:00:00 00:00:00 Triage Axel MCALLISTERY 350.1.13.10 ity of [facility] 4.2.7.2.686 Tim as [id number] [facility] [address] 2022-06-15 2022-06-15 [facility] 1.2.840.114 [id number] Univers 15:50:58 23:59:00 Encounter Sydnie PRIMARY 350.1.13.10 ity of [place]2.[place].2.[place] [id number] Al dical [address] 2022-06-15 2022-06-15 Outpatient R [facility] [id number] Univers 16:00:00 17:05:05 [facility] 2022-06-15 2022-06-15 Office [facility] 1.2.922.604 [id number] Univers 16:00:00 17:05:05 [facility] PRIMARY 350.1.13.10 it y of [place]2.7[place] [id number] Al dicoh [address] 2022-06-14 2022-06-14 Outpatient [facility] SLE [id number] SLE 12:55:31 23:59:00 BRIGID JOSE ANTONIO 2022-06-14 2022-06-14 [facility] [id number] 12:30:00 23:59:00 Encounter Jose Antonio rainey [facility] 2022-06-14 2022-06-14 [facility] [id number] 12:30:00 23:59:00 Encounter Jose Antonio rainey [facility] 2022-06-14 2022-06-14 Outpatient [facility] [id number] SLE 12:54:40 12:54:40 2022-06-14 2022-06-14 Telephone [facility] 1.2.099.271 [id number] Univers 00:00:00 00:00:00 [employer] 350.1.13.10 it y of [place] 4.2.7.2.686 Tim as SILVER?BLEA [id number] Al silvia[address] MEDICAL OFFICE BUILDING 2022-06-14 2022-06-14 Orders Doctor ESPINAL 1.2.840.114 [id number] Univers 00:00:00 00:00:00 Only Unassigned, TI 350.1.13.10 ity of [place] [facility] 4.2.7.2.686 Tim as [id number] [address] 2022-06-13 2022-06-13 Outpatient MICHELLE VAZQUEZ [facility] [id number] [facility] 14:02:40 15:56:43 HAYLEY Ziegler Medicin e 2022-06-13 2022-06-13 Outpatient EL SLE SLE [id number] [facility] 00:00:00 00:00:00 2022-06-12 2022-06-12 Outpatient EL SLE SLE [id number] [facility] 12:40:38 23:59:00 2022-06-12 2022-06-12 [facility] [id number] 12:40:38 23:59:00 Encounter [facility] 2022-06-12 2022-06-12 [facility] [id number] 12:40:38 23:59:00 Encounter [facility] 2022-06-12 2022-06-12 Outpatient EL SLE SLE [id number] [facility] 00:00:00 00:00:00 2022-06-11 2022-06-11 Outpatient Marion DUNN [facility] [id number] Univers 13:00:00 15:24:33 LEELA ity [facility] 2022-06-11 2022-06-11 Office Pastor HIJUANITO 1.2.840.114 [id number] Univers 13:00:00 15:24:33 Visit [employer] 350.1.13.10 it y [facility] 4.2.7.2.686 Tim as SILVER?BLEA [id number] Al silviarosales [address] MEDICAL OFFICE [facility] 2022-06-072022-06-07 Outpatient JUAN DANIEL [facility] [id number] [facility] 14:20:48 14:20:48 JOSE ANTONIO RAINEY of Medicin e 2022-06-07 2022-06-07 Outpatient PARISH FAM [facility] [id number] [facility] 10:33:34 13:37:25 Colleg e of Medicin e 2022-06-07 2022-06-07 Outpatient ABRAHAM [facility] [id number] [facility] 09:51:13 09:58:38 TRACIE Colleg e of Medicin e 2022-06-06 2022-06-06 [facility] [id number] Univers 07:30:00 23:59:00 [facility] 2022-06-06 2022-06-06 [facility] 1.2.840.114 [id number] Univers 07:30:00 23:59:00 Encounter [facility].1.13.10 [facility] 4.2.7.2.686 [facility] [id number] [address] OFFICE BUILDING 2022-06-04 2022-06-04 Outpatient Marion DUNN [facility] [id number] Univers 13:00:00 13:00:00 LEELA valdez [facility] 2022-05-31 2022-05-31 Outpatient [facility] [id number] [facility] 10:05:58 10:05:58 Colleg e of Medicin e 2022-05-30 2022-05-30 Outpatient MARK SCHAEFFER [facility] [id number] [facility] 13:52:35 13:52:35 Colleg e of Medicin e 2022-05-25 2022-05-25 Outpatient MEG [facility] [id number] [facility] 12:47:54 13:07:42 , PERCY Paniagua e of Medicin e 2022-05-25 2022-05-25 Outpatient MEG [facility] [id number] [facility] 00:00:00 00:00:00 PERCY of Medicin e 2022-05-22 2022-05-22 Outpatient JUAN DANIEL [facility] [id number] [facility] 09:12:51 09:30:39 BRIGID, JOSE ANTONIO Col lege of Medicin e 2022-05-09 2022-05-10 Outpatient ANGEL Steve [facility] [id number] [facility] 12:46:30 09:37:55 PARAM-TEGAN Deangelo ege of Medicin e 2022-05-09 2022-05-09 Surgery Pascal, [facility] [id number] 15:00:00 15:30:00 [facility] 2022-05-09 2022-05-09 Surgery Pascal, [facility] [id number] 15:00:00 15:30:00 [facility] 2022-05-09 2022-05-09 Outpatient [facility] Surgery [id number] [facility] 14:49:00 15:20:00 [facility] 2022-05-09 2022-05-09 [facility] [id number] 14:49:00 15:20:00 Encounter [facility] 2022-05-09 2022-05-09 [facility] [id number] 14:49:00 15:20:00 Encounter [facility] 2022-05-07 2022-05-08 Outpatient PASCAL, [facility] [id number] [facility] 12:51:13 12:54:08 ILIA Colleg e of Medicin e 2022-05-07 2022-05-08 Outpatient PASCAL, [facility] [id number] [facility] 12:48:58 12:51:03 ILIA Colleg [facility] Medicin e 2022-05-07 2022-05-07 Outpatient [facility] [id number] [facility] 11:29:00 23:59:00 Colleg e of Medicin e 2022-05-07 2022-05-07 Outpatient EL PASCAL, [facility] Surgery [id number] [facility] 11:29:00 16:44:00 [facility] 2022-05-07 2022-05-07 Hospital [facility] [id number] 11:29:00 16:44:00 Encounter [facility] 2022-05-07 2022-05-07 Hospital [facility] [id number] 11:29:00 16:44:00 Encounter [facility] 2022-05-07 2022-05-07 Anesthesia [facility] [id number] 14:52:00 15:33:00 Event [facility] 2022-05-07 2022-05-07 Anesthesia [facility] [id number] 14:52:00 15:33:00 Event [facility] 2022-05-07 2022-05-07 Surgery Pascal, [facility] [id number] 12:30:00 13:30:00 [facility] 2022-05-07 2022-05-07 Surgery Pascal, [facility] [id number] 12:30:00 13:30:00 [facility] 2022-05-07 2022-05-07 Travel [facility] [id number] [facility] 00:00:00 00:00:00 [facility] 2022-05-07 2022-05-07 Travel [facility] [id number] [facility] 00:00:00 00:00:00 [facility] 2022-05-03 2022-05-03 Outpatient JUAN DANIEL [facility] [id number] [facility] 11:29:56 11:54:32 JOSE ANTONIO RAINEY Medicnima caballero 2022-05-02 2022-05-02 Outpatient SLE SLE [id number] SLE 12:26:15 23:59:00 2022-05-02 2022-05-02 [facility] [id number] 11:50:00 23:59:00 Encounter [facility] 2022-05-02 2022-05-02 [facility] [id number] 11:50:00 23:59:00 Encounter [facility] 2022-05-02 2022-05-02 Travel [facility] [id number] [facility] 00:00:00 00:00:00 [facility] 2022-05-02 2022-05-02 Travel [facility] [id number] [facility] 00:00:00 00:00:00 [facility] 2022-05-01 2022-05-01 Outpatient [facility] [id number] [facility] 14:27:52 15:27:22 Arcelia caballero of Medicin e 2022-04-30 2022-04-30 Office JONATHAN [facility] 1.2.840.114 [id number] [facility] 09:04:45 10:18:53 Visit SUNTHOSH AMBULATOR 350.1.13.21 College Y 0.2.7.2.686 of [id number] Medi mari 800 e 2022-04-24 2022-04-24 Office EDMUND MINGO [facility] 1.2.840.114 [id number] [facility] 13:03:24 13:58:01 Visit AMBULATOR 350.1.13.21 College Y 0.2.7.2.686 of [id number] Medi mari 800 e 2022-04-19 2022-04-19 Outpatient TREVIÑO [facility] [id number] [facility] 11:42:46 11:52:01 Elsi KEARNS of Medicin e 2022-04-09 2022-04-09 Office JOSE LUIS [facility] 1.2.840.114 [id number] [facility] 08:58:00 10:58:40 Visit SAAD AMBULATOR 350.1.13.21 College Y 0.2.7.2.686 of [id number] Medi mari 600 e 2022-04-09 2022-04-09 Outpatient [facility] [id number] [facility] 09:53:39 09:53:39 Arcelia caballreo of Medicin e 2022-04-09 2022-04-09 Telephone FELY Lin 1.2.840.114 [id number] Univers 00:00:00 00:00:00 [facility] 350.1.13.10 ity of [facility] 4.2.7.2.686 Tim as SILVER?BLEA [id number] [address] MEDICAL OFFICE [facility] 2022-04-09 2022-04-09 [facility]phone [facility] 1.2.840.114 [id number] Univers 00:00:00 00:00:00 [facility] 350.1.13.10 ity of [place] 4.2.7.2.686 Tim as SILVER?BLEA [id number] [address] OFFICE [facility] 2022-04-05 2022-04-05 Office Meg [facility] 1.2.840.114 [id number] [facility] 14:30:00 16:17:05 Visit , Percy Lawrence AMBULATOR 350.1.13.21 College Y 0.2.7.2.686 of [id number] [facility] 800 2022-04-03 2022-04-03 Outpatient R OJ LIN [facility] [id number] Univers 13:40:00 16:19:29 OJ [facility] 2022-04-03 2022-04-03 [facility] 1.2.840.114 [id number] Univers 13:40:00 16:19:29 Visit [facility] 350.1.13.10 ity of [place] 4.2.7.2.686 Tim as SILVER?BLEA [id number] [address] OFFICE [facility] 2022-04-03 2022-04-03 Orders Doctor ZIYAD 1.2.840.114 [id number] Univers 00:00:00 00:00:00 Only Unassigned, TI 350.1.13.10 [place]y of [place] [facility] 4.2.7.2.686 Tim as [id number] [address] 2022-04-03 2022-04-03 Telephone [facility] 1.2.840.114 [id number] Univers 00:00:00 00:00:00 [facility] 350.1.13.10 ity liberty [place] 4.2.7.2.686 Tim as SILVER?BLEA [id number] Al ken DUARTE 2 [employer] [facility] 2022-04-02 2022-04-02 Outpatient HEMMATI, [facility] [id number] [facility] 10:33:56 11:55:50 [facility] [employer] 2022-03-30 2022-03-30 Outpatient TIGRE, [facility] [id number] [facility] 08:00:27 10:43:29 [facility] [employer] 2022-03-29 2022-03-29 Office Grmike, [facility] 1.2.840.114 [id number] [facility] 14:30:00 15:30:00 Visit Shelly AMBULATOR 350.1.13.21 College Y 0.2.7.2.686 of [id number] [facility] mari 810 e 2022-03-23 2022-03-23 Emergency Iruke, 1.2.840.1 [id number] [id number] Methodi 00:11:00 02:04:00 Ricci 07585.1.1 850 s t [place] 3.430.2.7 Hospit a .3.061404 l .8 2022-03-23 2022-03-23 Emergency [place], 1.2.840.1 [id number] 2099 [id number] Methodi 00:11:00 02:04:00 Ricci 95615.1.1 850 s t [place] 3.430.2.7 Hospit a .3.519959 l .8 2022-03-23 2022-03-23 Travel 1.2.840.1 1.2.457.841 [id number] Methodi 00:00:00 00:00:[address] 3.430.2.7 0.2.7.3.698 Ho spita .3.100172 084.8 l .8 2022-03-23 2022-03-23 Travel 1.2.840.1 1.2.136.026 [id number] Methodi 00:00:00 00:00:[address] 3[address]430.2.7 0.2.7.3.698 Ho spita .3.823081 084.8 l .8 2022-03-21 2022-03-21 Outpatient MEG [facility] [id number] [facility] 10:16:48 11:36:56 , PERCY Bartong e of Medicin e 2022-03-20 2022-03-20 Outpatient TORIE DONOHUE [facility] [id number] [facility] 17:12:41 17:27:53 Colleg e [facility] Medicin e 2022-03-19 2022-03-19 Outpatient OJ HUERTA [facility] [id number] [facility] 08:40:00 08:40:00 OJ LIN myla [facility] 2022-03-14 2022-03-17 Inpatient ER [facility] Emergency [id number] [facility] 17:46:00 19:00:00 [facility] 2022-03-14 2022-03-17 Hospital ER [facility] [id number] [facility] 17:46:00 19:00:00 Encounter Yuli Robles PingDonny rivera [facility] 2022-03-14 2022-03-17 [facility] [id number] [facility] 17:46:00 19:00:00 Encounter Yuli Robles Najamus M [facility] 2022-03-16 2022-03-16 Outpatient [facility] [id number] [facility] 00:00:00 23:59:00 Colleg e [facility] Medicin e 2022-03-16 2022-03-[address] [facility] [id number] 00:00:00 00:00:00 [facility] 2022-03-16 2022-03-[address] [facility] [id number] 00:00:00 00:00:00 Only [facility] 2022-03-15 2022-03-15 Travel [facility] [id number] [facility] 00:00:00 00:00:00 [facility] 2022-03-15 2022-03-15 Travel [facility] [id number] [facility] 00:[facility]:00 00:00:00 [facility] 2022-03-14 2022-03-14 [facility] [id number] [facility] 00:00:00 00:00:00 [facility]in [facility] 2022-03-14 2022-03-14 Outpatient [facility] [id number] [facility] 00:00:00 00:00:00 [employer] Medicin e 2022-03-12 2022-03-12 Office MICHELLE SMITH 1.2.840.114 [id number] [facility] 13:33:41 15:23:00 Visit LEONORA AMBULATOR 350.1.13.21 College Y 0.2.7.2.686 of [id number] [facility] mari 800 e 2022-03-09 2022-03-09 Orders Doctor ZIYAD 1.2.840.[id number] [place] [address] 00:00:00 00:00:00 Only Unassigned, TI 350.1.13.10 it[place] of [place] [facility] 4.2.7.2.686 Tim as [id number] [facility] tyler [address] 2022-03-08 2022-03-08 Outpatient [facility] [id number] [facility] 14:21:01 23:59:00 2022-03-08 2022-03-08 [facility] [id number] 13:00:00 23:59:00 Encounter [facility] 2022-03-08 2022-03-08 [facility] [id number] 13:00:00 23:59:00 Encounter [facility] 2022-03-07 2022-03-07 Emergency ER [facility], [facility] Emergency [id number] [facility] 16:56:00 20:33:00 [place] 2022-03-07 2022-03-07 Emergency ER Ala, [facility] [id number] 16:56:00 20:33:00 [facility] 2022-03-07 2022-03-07 Emergency Racheal, [facility] [id number] 16:56:00 20:33:00 [facility] 2022-03-07 2022-03-07 Office Brandt Alvarado [facility] 1.2.840.114 [id number] [facility] 12:00:00 12:30:00 Visit Tucker AMBULATOR 350.1.13.21 College Y 0.2.7.2.686 of [id number] Medi mari 370 e 2022-03-07 2022-03-07 Travel [facility] [id number] [facility] 00:00:00 00:00:00 [facility] 2022-03-07 2022-03-07 Travel [facility] [id number] [facility] 00:00:00 00:00:00 [facility] 2022-03-06 2022-03-06 Office MEG [facility] 1.2.840.114 [id number] [facility] 13:55:11 15:12:48 Visit , PERCY AMBULATOR 350.1.13.21 College Y 0.2.7.2.686 of [id number] Medi mari 800 e 2022-02-28 2022-02-28 Outpatient ROCHELLE [facility] [id number] [facility] 11:04:13 11:30:07 SHELLY caballero of Medicin e 2022-02-27 2022-02-27 Outpatient EVANGELIST [facility] [id number] [facility] 12:41:18 13:30:31 JOE mendoza of Medicin e 2022-02-21 2022-02-21 Office BRANDT ALVARADO [facility] 1.2.840.114 [id number] [facility] 11:42:10 14:47:58 Visit AMBULATOR 350.1.13.21 College Y 0.2.7.2.686 of [id number] Medi mari 370 e 2022-02-21 2022-02-21 Outpatient BRUNO [facility] [id number] [facility] 12:59:20 13:56:55 ANEL Colleg [employer] Medicin [employer] 2022-02-21 2022-02-21 Outpatient [facility] [id number] [facility] 10:48:56 11:53:58 Colleg e of Medicin e 2022-02-12 2022-02-12 Outpatient GRACE, [facility] [id number] [facility] 14:28:30 14:53:23 [place]IV[place] Colleg [employer]in [employer] 2022-02-08 2022-02-08 Outpatient EGAN, [facility] [id number] [facility] 11:10:52 11:23:14 BRANDT Colleg e of Medicin e 2022-02-06 2022-02-06 Outpatient MEG [facility] [id number] [facility] 15:50:32 16:56:47 , PERCY Colleg e of Medicin e 2022-01-24 2022-01-24 Office HANNAH [facility] 1.2.840.114 [id number] [facility] 11:04:24 15:42:18 Visit NEREIDA AMBULATOR 350.1.13.21 College Y 0.2.7.2.686 of [id number] Medi mari 800 e 2022-01-23 2022-01-23 Office ROCHELLE [facility] 1.2.840.114 [id number] [facility] 08:51:35 10:59:10 Visit SHELLY AMBULATOR 350.1.13.21 College Y 0.2.7.2.686 of [id number] Medi mari 810 e 2022-01-22 2022-01-22 Office Tigre [facility] 1.2.840.114 [id number] [facility] 16:30:00 17:00:00 Visit Leonora AMBULATOR 350.1.13.21 College Bhavana Y 0.2.7.2.686 of [id number] Medi mari 800 e 2022-01-18 2022-01-[address] [facility] [id number] [facility] 13:51:29 23:59:00 ABDOULAYE 2022-01-18 2022-01-18 [facility] [id number] [facility] 13:00:00 23:59:00 Encounter [facility] 2022-01-18 2022-01-18 [facility] Emperatriz [facility] [id number] 13:00:00 23:59:00 Encounter [facility] 2022-01-15 2022-01-[address] [facility] [id number] [facility] 10:39:36 23:59:00 ESJOSE ANTONIO 2022-01-15 2022-01-15 [facility] Ana LuisaLansebora [facility] [id number] 10:39:36 23:59:00 Encounter Jose Antonio rainey [facility] 2022-01-15 2022-01-15 [facility] [id number] 10:39:36 23:59:00 Encounter Jose Antonio rainey [facility] 2022-01-13 2022-01-13 Outpatient TONY [facility] [id number] [facility] 12:47:24 13:32:31 MITA Paniagua e of Medicin e 2022-01-09 2022-01-09 Outpatient MEG [facility] [id number] [facility] 14:59:11 15:35:42 PERCY of Medicin e 2021-12-29 2021-12-29 Outpatient ANDI PIERCE [facility] [id number] [facility] 00:00:00 00:00:00 MYERS FLAT 2021-12-28 2021-12-28 Outpatient VASHTI [facility] [id number] [facility] 14:49:51 15:00:04 RAS sy of Medicin e 2021-12-26 2021-12-26 Outpatient KEL [facility] [id number] [facility] 15:41:39 15:50:12 GERALDO Paniagua e of Medicin e 2021-12-26 2021-12-26 Outpatient ANDI FRANCES [facility] [id number] [facility] 00:00:00 00:00:00 ESJOSE ANTONIO 2021-12-21 2021-12-21 Outpatient HUDSON [facility] [id number] [facility] 13:40:04 13:50:33 Elsi KEARNS of Medicin e 2021-12-19 2021-12-19 Outpatient BRANDT ALVARADO [facility] [id number] [facility] 15:57:39 16:22:47 Collemarc e of Medicin e 2021-12-15 2021-12-15 Outpatient TONY [facility] [id number] [facility] 10:46:21 12:04:39 MITA caballero of Medicin e 2021-12-13 2021-12-13 Outpatient ANDI TREVIÑO SLE [facility] [id number] [facility] 18:57:08 23:59:00 PABLO KEARNS 2021-12-13 2021-12-[address] [facility] [id number] 18:57:08 23:59:00 Encounter [facility] 2021-12-13 2021-12-[address] [facility] [id number] 18:57:08 23:59:00 Encounter [facility] 2021-12-13 2021-12-13 Outpatient [facility] [id number] [facility] 15:13:57 18:56:00 2021-12-13 2021-12-13 [facility] [id number] 14:30:00 18:56:00 Encounter [facility] 2021-12-13 2021-12-13 [facility] [id number] 14:30:00 18:56:00 Encounter [facility] 2021-12-13 2021-12-13 Outside [facility] [id number] 00:00:00 00:00:00 Orders [facility] 2021-12-13 2021-12-13 Outside [facility] [id number] 00:00:00 00:00:00 Orders [facility] 2021-12-08 2021-12-08 Outpatient MEG [facility] [id number] [facility] 16:04:18 17:05:24 , PERCY caballero of Medicin e 2021-12-06 2021-12-06 Outpatient JUAN DANIEL [facility] [id number] [facility] 00:00:00 00:00:00 JOSE ANTONIO RAINEY 2021-11-23 2021-11-29 Office MICHELLE PIERCE 1.2.840.114 [id number] [facility] 12:23:45 19:53:49 Visit ABDOULAYE AMBULATOR 350.1.13.21 College Y 0.2.7.2.686 [facility] [id number] Medi mari 375 e 2021-11-21 2021-11-21 Outpatient [facility] [id number] [facility] 09:33:02 23:59:00 Arcelia e of Medicin e 2021-11-21 2021-11-21 Outpatient EVANGELIST [facility] [id number] [facility] 15:52:03 16:11:58 JOE mendoza of Medicin e 2021-11-15 2021-11-[address] [facility] [id number] 00:00:00 00:00:00 Orders Jose Antonio rainey [facility] 2021-11-15 2021-11-[address] [facility] [id number] 00:00:00 00:00:00 Orders Jose Antonio rainey [facility] 2021-11-14 2021-11-14 Outpatient JUAN DANIEL [facility] [id number] [facility] 11:26:15 11:54:44 JOSE ANTONIO RAINEY Col franco of Medicin e 2021-11-08 2021-11-08 Outpatient MEG [facility] [id number] [facility] 10:45:10 11:26:55 , PERCY caballero of Medicin e 2021-11-07 2021-11-07 Outpatient [facility] [id number] [facility] 12:25:06 19:34:43 Arcelia e of Medicin e 2021-11-06 2021-11-06 Outpatient HUDSON [facility] [id number] [facility] 13:01:13 13:16:00 Elsi KEARNS of Medicin e 2021-11-06 2021-11-06 Outside [facility] [id number] 00:00:00 00:00:00 Orders [facility] 2021-11-06 2021-11-06 Outside [facility] [id number] 00:00:00 00:00:00 Orders [facility] 2021-11-02 2021-11-02 Outpatient KAMERON MARIANO [facility] [id number] [facility] 11:13:16 11:46:07 Colleg e of Medicin e 2021-10-04 2021-10-04 Outpatient MEG [facility] [id number] [facility] 14:40:16 15:30:50 PERCY Colleg e of Medicin e 2021-10-04 2021-10-04 Outpatient KALINA [facility] [id number] [facility] 11:02:47 11:22:43 DAVID Colleg e [employer] Medicin e 2021-10-03 2021-10-04 Emergency ER [facility] Emergency [id number] [facility] 18:27:00 00:06:00 [facility] 2021-10-03 2021-10-04 Emergency ER [facility], [facility] [id number] 18:27:00 00:06:00 [facility] 2021-10-03 2021-10-04 Emergency [facility], [facility] [id number] 18:27:00 00:06:00 [facility] 2021-10-03 2021-10-03 Outpatient [facility] [id number] [facility] 00:00:00 23:59:00 Colleg e of Medicin e 2021-10-03 2021-10-[address] [facility] [id number] 00:00:00 00:00:00 Only [facility] 2021-10-03 2021-10-03 Travel [facility] [id number] [facility] 00:00:00 00:00:00 [facility] 2021-10-03 2021-10-[address] [facility] [id number] 00:00:00 00:00:00 Only [facility] 2021-10-03 2021-10-03 Travel [facility] [id number] [facility] 00:00:00 00:00:00 [facility] 2021-10-02 2021-10-02 Outpatient KAMERON MARIANO [facility] [id number] [facility] 11:10:31 11:36:49 Colleg e of Medicin e 2021-09-29 2021-09-29 Outpatient [facility] [id number] [facility] 13:53:41 19:33:14 Colleg e of Medicin e 2021-09-08 2021-09-08 Outpatient [facility] [id number] [facility] 14:39:29 15:57:38 Colleg e of Medicin e 2021-09-08 2021-09-08 Office Brandt Alvarado [facility] 1.2.840.114 [id number] [facility] 14:00:00 14:29:40 Visit Chuan AMBULATOR 350.1.13.21 College Y 0.2.7.2.686 of [id number] Medi mari 370 e 2021-09-07 2021-09-07 Outpatient MICHELLE JIMENEZ [facility] [id number] [facility] 11:19:54 12:14:35 MITA Colleg e of Medicin e 2021-09-01 2021-09-01 Outpatient MEG [facility] [id number] [facility] 09:10:31 09:39:43 , PERCY Colleg e of Medicin e 2021-08-30 2021-08-30 Outpatient MEG [facility] [id number] [facility] 09:07:34 09:43:49 , PERCY Colleg e of Medicin e 2021-08-28 2021-08-28 Outpatient TONY [facility] [id number] [facility] 09:29:31 10:12:55 MITA Colleg [employer]in [employer] 2021-08-25 2021-08-25 Outpatient MEG [facility] [id number] [facility] 14:51:23 15:08:58 , PERCY Colleg e [employer] Medicin e 2021-08-22 2021-08-22 Outpatient TIGRE, [facility] [id number] [facility] 09:16:35 10:19:47 LEONORA Colleg e of Medicin e 2021-08-21 2021-08-21 Outpatient KATHY COELLO [facility] [id number] [facility] 15:32:14 15:45:49 Colleg e of Medicin e 2021-08-10 2021-08-10 Outpatient DARRENRadha, [facility] [id number] [facility] 10:45:05 11:03:22 DAVID Colleg [employer]in [employer] 2021-07-18 2021-07-18 Outpatient [facility] [id number] [facility] 10:12:40 23:59:00 Colleg e of Medicin e 2021-06-27 2021-06-27 Office MALINDA [facility] 1.2.840.114 [id number] [facility] 11:25:43 14:10:45 Visit NEREIDA AMBULATOR 350.1.13.21 College Y 0.2.7.2.686 of [id number] Medi mari 800 e 2021-06-27 2021-06-27 Office LD [facility] 1.2.840.114 [id number] [facility] 11:47:25 13:43:58 Visit ANTON AMBULATOR 350.1.13.21 College Y 0.2.7.2.686 of [id number] Medi mari 805 e 2021-06-27 2021-06-27 Outpatient KEL [facility] [id number] [facility] 10:52:47 11:01:51 DIPABEN Colleg e of Medicin e 2021-06-26 2021-06-26 Outpatient MARY CORTÉS [facility] [id number] [facility] 12:48:58 13:12:49 Colleg e of Medicin e 2021-06-14 2021-06-14 Outpatient TEEGAVARAMADAU [facility] [id number] [facility] 10:32:30 10:36:22 , BINDU Heath ege of Medicin e 2021-05-03 2021-05-03 Office BRANDT ALVARADO [facility] 1.2.840.114 [id number] [facility] 11:20:43 13:31:56 Visit AMBULATOR 350.1.13.21 College Y 0.2.7.2.686 of [id number] Medi mari 370 e 2021-05-03 2021-05-03 Outpatient [facility] [id number] [facility] 12:39:45 13:27:12 Colleg e of Medicin e 2021-03-17 2021-03-17 Outpatient MARY CORTÉS [facility] [id number] [facility] 13:52:42 14:02:09 Colleg e of Medicin e 2021-03-15 2021-03-15 Outpatient TIGRE [facility] [id number] [facility] 13:01:17 14:14:59 LEONORA Colleg e of Medicin e 2021-03-03 2021-03-03 Outpatient GORGE [facility] [id number] [facility] 14:39:05 15:10:23 ENMANUEL Colleg e [employer] Medicin e 2021-03-03 2021-03-03 Office MALINDA [facility] 1.2.840.114 [id number] [facility] 13:47:38 14:34:20 Visit NEREIDA AMBULATOR 350.1.13.21 College Y 0.2.7.2.686 of [id number] [facility] mari 800 e 2021-03-03 2021-03-03 Outpatient [facility] [id number] [facility] 00:00:00 00:00:00 Colleg e of Medicin e 2021-02-14 2021-02-14 Outpatient SHERI MALDONADO [facility] [id number] [facility] 12:52:23 13:06:39 Colleg e of Medicin e 2021-02-01 2021-02-01 Outpatient MARY CORTÉS [facility] [id number] [facility] 11:08:12 11:16:51 Colleg e of Medicin e 2021-01-23 2021-01-23 Outpatient SHERI MALDONADO [facility] [id number] [facility] 14:10:03 14:39:01 Colleg e of Medicin e 2021-01-13 2021-01-13 Outpatient MARY CORTÉS [facility] [id number] [facility] 10:40:13 10:46:45 Colleg e of Medicin e 2021-01-05 2021-01-05 Outpatient SHERI MALDONADO [facility] [id number] [facility] 14:02:25 14:28:53 Colleg e of Medicin e 2021-01-03 2021-01-03 Emergency ER [facility] Emergency [id number] [facility] 13:47:00 13:47:00 2020-12-02 2020-12-02 Office Jenny Brandt [facility] 1.2.840.114 [id number] [facility] 11:28:58 12:00:21 Visit Chuan AMBULATOR 350.1.13.21 College Y 0.2.7.2.686 of [id number] Medi mari 370 e 2020-11-11 2020-11-11 Office Brandt Alvarado [facility] 1.2.840.114 [id number] 14:00:00 14:30:00 Visit Chuan AMBULATOR 350.1.13.21 Y 0.2.7.2.686 [id number] 2020-11-11 2020-11-11 Office Brandt Alvarado [facility] 1.2.840.114 [id number] [facility] 14:00:00 14:30:00 Visit Chuan AMBULATOR 350.1.13.21 College Y 0.2.7.2.686 of [id number] Medi mari 370 e 2020-11-11 2020-11-11 Outpatient [facility] [id number] [facility] 12:34:41 12:34:41 Colleg e of Medicin e 2020-10-28 2020-10-28 Outpatient EL JENNY BRANDT [facility] [id number] [facility] 00:00:00 00:00:00 2020-10-12 2020-10-12 AppointJOELLE Cintron [facility] [id number] [place] 10:00:00 10:00:00 t; HECTOR STORM, lty - Physi Radha YOUNG Internation qamar Garcia [facility] 2020-09-08 2020-09-08 Patient FELY Campos 1.2.840.114 [id number] [facility] 00:00:00 00:00:00 Outreach Kevin PRIMARY 350.1.13.10 i ty of [place] [id number] Al dical [address] 2020-09-08 2020-09-08 Patient Andres HIJUANITO 1.2.840.114 [id number] 00:00:00 00:00:00 Outreach Kevin PRIMARY 350.1.13.10 [place] [facility] 4.2.7.2.686 PAVILLION [id number] 2020-08-16 2020-08-16 JOELLE Cabral [facility] [id number] [place] 15:30:00 15:30:00 t; HECTOR STORM lty - Leonard YOUNG M.D. Internation qamar Garcia [facility] 2020-07-22 2020-07-22 Outpatient EL [facility] [id number] [facility] 00:00:00 00:00:00 2020-07-22 2020-07-22 Outpatient EL [facility] [id number] [facility] 00:00:00 00:00:00 2020-06-20 2020-06-20 JOELLE Cabral [facility] [id number] [place] 14:00:00 14:00:00 t; HECTOR STORM Physi ci SHAOJIE, M.D. ans M.D. 2020-06-14 2020-06-[address] [facility] 1.2.840.114 [id number] 14:00:46 14:30:46 Visit , Bindu Spence 350.1.13.21 [place] 0.2.7.2.686 [id number] 530 2020-06-14 2020-06-[address] [facility] 1.2.840.114 [id number] [facility] 14:00:46 14:30:46 Visit , Bindu Spence 350.1.13.21 [place]ie Sravanti 0.2.7.2.686 [id number] [facility] 530 e 2020-06-09 2020-06-09 JOELLE Cabral [facility] [id number] [place] 12:00:00 12:00:00 t; HECTOR STORM, lty - Physi zofia YOUNG M.D. Internation qamar Garcia [facility] 2020-05-12 2020-05-12 Office Parish Fam 1.2.840.114 [id number] 11:31:06 16:54:40 Visit AMBULATOR 350.1.13.21 Y 0.2.7.2.686 [id number] 2020-05-12 2020-05-12 Office Parish Fam [facility] 1.2.840.114 [id number] [facility] 11:31:06 16:54:40 Visit AMBULATOR 350.1.13.21 College Y 0.2.7.2.686 of [id number] Medi mari 305 e 2020-05-12 2020-05-12 Office Brandt Alvarado 1.2.840.114 [id number] 13:27:27 14:12:27 Visit Chuan AMBULATOR 350.1.13.21 Y 0.2.7.2.686 [id number] 370 2020-05-12 2020-05-12 Office JennyBrandt [facility] 1.2.840.114 [id number] [facility] 13:27:27 14:12:27 Visit Chuan AMBULATOR 350.1.13.21 College Y 0.2.7.2.686 of [phone] Medi mari 370 e 2020-04-22 2020-04-22 Emergency E LAURIE JO BL 7512 BL 19:33:00 21:32:00 BRANDT 2020-03-31 2020-03-31 Outpatient R SPENSER, [facility] [id number] 10625 [facility] [place] 13:00:00 13:00:00 JORDI valdez [facility] 2020-03-28 2020-03-28 AppointJOELLE Alejandro [facility] [id number] [place] 14:30:00 14:30:00 t; ALANA HAM M.D. P brigido WARNER M.D. ans 2020-03-17 2020-03-17 [id number] [place] 12:00:00 12:00:00 t; HECTOR STORM lty - Physi zofia YOUNG M.D. Internation qamar Garcia [facility] 2020-03-10 2020-03-10 Outpatient R SUELLEN MENDENHALL [facility] [id number] Univers 13:30:00 13:30:00 ity of [facility] 2020-03-10 2020-03-10 Office HuyElva [facility] 1.2.840.11 [id number] Univers 13:06:29 13:21:29 Visit Suellen Mendenhall MULTISPEC 350.1.13.10 [facility] 4.2.7.2.686 [facility] [phone] [facility] AND [address] [facility] 2020-03-10 2020-03-10 Office Carrillohoward [facility] [id number] 2066 13:06:29 13:21:29 Visit Elva MULTISPEC 350.1.13.10 IALTY 4.2.7.2.686 CENTER [id number] [place] [address] [facility] 2020-03-10 2020-03-10 Orders Doctor ZIYAD 1.2.840.114 [id number] Univers 00:00:00 00:00:00 Only Unassigned, TI 350.1.13.10 [place]y of [place] [facility] 4.2.7.2.686 Tim [id number] [place] [address] [place] 2020-03-02 2020-03-02 Outpatient [facility] [id number] [facility] 00:00:00 00:00:00 2020-02-09 2020-02-09 AppointJOELLE Niño Orth[facility] [id number] [place] 11:00:00 11:00:00 t; lilly CARLTON M.D. Hermann ans MICHAEL [facility] 2020-01-29 2020-01-29 Outpatient ANDI GILMAN [facility] [id number] SLE 00:00:00 00:00:00 DAVID 2020-01-27 2020-01-27 AppointJOELLE Cintron Mult[facility] [id number] [place] 15:30:00 15:30:00 t; HECTOR STORM lty - Leonard YOUNG M.D. Internation qamar Garcia [facility] 2020-01-01 2020-01-01 Layla ALEXIS [facility] Orthopedics 67 [id number] [place] 09:50:00 09:50:00 t; [facility] 2019-12-23 2019-12-24 Outpatient Derick LANZAAMANDOAshlie, FB MED 7511 MHFB 17:36:00 17:46:00 GOLNAR 2019-12-21 2019-12-22 Emergency Schaffer, [facility] 1.2.840.114 [id number] Univers 22:02:00 02:26:00 Dede White 350.1.13.10 i [facility] 4.2.7.2.686 [facility] [id number] [address] 2019-12-21 2019-12-21 Emergency X SCHAFFER, [facility] ERT [id number] Univers 22:02:00 22:02:00 DEDE valdez [facility] 2019-12-15 2019-12-15 Layla BILL, [facility] Orthopedics 67 [id number] [place] 11:10:00 11:10:00 t; BRANDT [facility] Radha Kilgore [facility] 2019-11-27 2019-11-27 Outpatient LANDY, FB MHFB 7510 FB 06:50:00 11:40:00 BRANDT 2019-11-27 2019-11-27 Layla BILL, [facility] UTP [id number] [place] 08:00:00 08:00:00 t; Leonard CARLTON M.D. ans MICHAEL, M.D. 2019-11-10 2019-11-10 Layla BILL, [facility] UTP [id number] UT 10:45:00 10:45:00 t; Leonard CARLTON M.D. ans MICHAEL, M.D. 2019-10-27 2019-10-27 JOELLE López UTP [id number] [place] 11:30:00 11:30:00 t; Leonard CARLTON M.D. ans MICHAEL, M.D. 2019-10-23 2019-10-23 Layla DAMON UTP UTP [id number] 2 [place] 12:45:00 12:45:00 t; ELOISE DAMON Phy sici ELOISE ans 2019-10-16 2019-10-16 App[facility]men [facility] [id number] [place] 10:30:00 10:30:00 t; Leonard CARLTON M.D. ans MICHAEL, M.D. 2019-09-30 2019-09-30 Appointmen DOTTY [facility] Multispecia [id number] [place] 15:30:00 15:30:00 t; HECTOR STORM, lty - Physi zofia YOUNG M.D. Internation qamar Garcia [facility] 2019-09-11 2019-09-11 Telephone [facility] 1.2.840.114 [id number] Univers 00:00:00 00:00:00 Tracey White 350.1.13.10 i [place] of [place]2.[place] [facility] [id number] Al dical nal 044 [facility] 2019-08-24 2019-08-24 Appointmen STU [facility] Orthopedics [id number] [place] 14:30:00 14:30:00 t; HOLGER PERAZA M.D. at [facility] Richard WREN M.D. [facility] 2019-08-20 2019-08-20 Emergency X [facility] ERT [id number] Univers 11:54:02 15:29:00 MEHREENPUJA valdez of [facility] 2019-08-20 2019-08-20 Emergency [facility] 1.2.413.534 [id number] Univers 11:54:02 15:29:00 Mehreen White 350.1.13.10 [place]y of [place] [id number] [facility] 084 [place] 2019-08-20 2019-08-20 Orders Doctor ESPINAL 1.2.840.114 [id number] Univers 00:00:00 00:00:00 Only Unassigned, TI 350.1.13.10 [place] of [place] [facility] 4.2.7.2.686 Tim as [phone] [address] 2019-08-13 2019-08-13 JOELLE López Orthoped[facility] 63 [id number] [place] 09:45:00 09:45:00 t; lilly CARLTON [facility] Radha Kilgore [facility] 2019-08-07 2019-08-07 Outpatient [facility] 7503 [facility] 10:04:00 10:04:00 2019-08-07 2019-08-07 Layla DAMON [facility] [id number] [place] 10:00:00 10:00:00 t; ELOISE DAMON sici ELOISE [facility] 2019-08-04 2019-08-04 Layla BILL [facility] [id number] [place] 13:30:00 13:30:00 t; Leonard CARLTON M.D. ans MICHAEL, M.D. 2019-07-13 2019-07-13 JOELLE Dave Multispecia [id number] [place] 13:00:00 13:00:00 t; ALANA HAM M.D. arthur WARNER M.D. [facility] 2019-07-03 2019-07-03 Emergency X DEBBY, [facility] ERT [id number] [facility] 13:52:37 16:46:00 DEMARCO [facility] 2019-06-23 2019-06-23 JOELLE López UTP [id number] [place] 11:15:00 11:15:00 t; Leonard CARLTON M.D. ans MICHAEL, M.D. 2019-05-19 2019-05-19 JOELLE Petty Orthopedics 58 [id number] [place] 08:00:00 08:00:00 t; lilly ALEX [facility] Cam VILLANUEVA, [facility] qamar ALEX, [facility], [address] 2019-05-08 2019-05-08 JOELLE López Orthopedics 58 [id number] [place] 11:00:00 11:00:00 t; lilly CARLTON M.D. Hermann ans MICHAEL, [facility] 2019-05-04 2019-05-04 Layla ARZOLA [facility] [id number] [place] 11:00:00 11:00:00 t; Thony VALADEZ i, M.D. ans ROBERT, M.D. 2019-04-20 2019-04-20 Appointmen [facility] [id number] [place] 13:00:00 13:00:00 t; OTTONIEL CHAU, Ph Radha Del Cid M.D. 2019-04-16 2019-04-[facility] Multispecia 5 [id number] [place] 13:00:00 13:00:00 t; NITHYA CERVANTES lty - [facility]i ci [facility] NITHYA [address]ERVANTES [address] 2019-04-14 2019-04-14 [facility] Orthopedics 57 [id number] [place] 14:15:00 14:15:00 t; lilly CARLTON M.D. Hermann ans MICHAEL [facility] 2019-04-13 2019-04-13 [facility] [id number] 2 [place] 12:00:00 12:00:00 t; HECTOR STORM Physi Radha Hernandez M.D. 2019-04-09 2019-04-[facility] Multispecia 5 [id number] [place] 07:00:00 07:00:00 t; Radha CERVANTES - Phy lopezi [facility] Radha CERVANTES [address] 2019-04-09 2019-04-09 Outpatient MHSE MHSE 7502 06:10:00 06:10:[address] [facility] 2019-03-26 2019-03-26 Appointmelina S[facility]ZAUN[facility] Multispecia [id number] [place] 11:30:00 11:30:00 t; alex HACKETT i, M.D. Jal ROXANN foote M.D. 2019-03-17 2019-03-17 Layla [facility] [id number] [place] 11:00:00 11:00:00 t; Leonard CARLTON M.D. ans MICHAEL, M.D. 2019-03-05 2019-03-05 Appointmelina MEDELLINUN[facility] Multispecia 5 [id number] [place] 10:30:00 10:30:00 t; KOBE lty - Physi ci JOCELINE MEDELLIN Jalqamar [place], [address] [employer] 2019-03-03 2019-03-03 Outpatient [facility] 9600 [facility] 11:36:00 11:36:00 2019-03-03 2019-03-03 Appointmen CARI [facility] [id number] [place] 11:30:00 11:30:00 t; TADEO ALCALA P hysici HARINDER, M.D. ans M.D. 2019-02-10 2019-02-10 Appointmen [facility] Orthopedics 56 [id number] [place] 13:45:00 13:45:00 t; Darlene CARLTON Sugar Physi zofia BILL M.D. Land qamar CARLTON M.D. 2019-02-05 2019-02-05 Appointmen DOTTY [facility] Multispecia [id number] [place] 14:00:00 14:00:00 t; HECTOR STORM lty - Physi ci Radha YOUNG Internation qamar Garcia [facility] 2019-01-29 2019-01-29 Appointmen HARLEY [facility] Multispecia [id number] [place] 15:30:00 15:30:00 t; alex HACKETT Physic i HARLEY Garcia Jal ROXANN foote M.D. 2019-01-29 2019-01-29 Appointmen HARLEY [facility] [id number] [place] 15:00:00 15:00:00 t; ROXANN Physic i ROXANN Parsons M.D., M.D. 2019-01-23 2019-01-23 Appointmen BECKY [facility] Multispecia 5 [id number] [place] 14:00:00 14:00:00 t; NITHYA CERVANTES lty - Physi ci BECKY [place] NITH[address] 2019-01-14 2019-01-14 Appointmen COREY HOBSON, [facility] Multispecia [id number] [place] 13:00:00 13:00:00 t; JOCELINE HOBSON lty - Physi ci JOCELINE ARANA Internation a [facility] 2019-01-14 2019-01-14 Appointmen EDUARD JOELLE Non-Invasiv [id number] [place] 10:00:00 10:00:00 t; LARRY CHAPA e - [place] P hysici ECHOII Medical [facility] 2019-01-14 2019-01-14 Appointmen EDUARD, PFT UTP UTP [id number] [place] 09:00:00 09:00:00 t; Lillie CHAPA sici PFT [facility] 2019-01-14 2019-01-14 Appointmen CHITRA [facility] Pulmonary & [id number] [place] 08:30:00 08:30:00 t; CASTILLO BUENROSTRO M.D. Sleep qamar Bush M.D. 2019-01-13 2019-01-13 Appointmen JOELLE SOUZA Mult[facility]ia [id number] [place] 08:00:00 08:00:00 t; alex HACKETT i, M.D., ans, FAROKH, [address] M.D. 2018-12-29 2018-12-29 Appointmen COREY HOBSON, [facility] Multispecia [id number] [place] 13:00:00 13:00:00 t; JOCELINE HOBSON - Physi zofia ARANA APRN Internation a [facility] Results Test Description Test Time Test Comments Results Result [facility] e Comments CT, CHEST WITH IV 2022-07-14 42F hx/ DVT/PE, CONTRAST- PE TEST 12:45:00 UC, lap gastric DESIGN sleeve, p/w CHI SOBUnlisted [facility] Reason for Exam - CENTERName: [...] UA (test code = Hazy 5767-9) Specific [place], UA (test 1.026 1.001-1.035 code = 5811-5) pH, UA (test code = 5803-2) 6.0 5.0-8.0 Protein, UA (test code = 20 mg/dL Negative A 46833-6) Glucose, UA (test code = Negative Negative 365) Ketones, UA (test code = 10 mg/dL Negative A 2514-8) Bilirubin, UA (test code = Negative Negative 77936-6) Blood, UA (test code = Negative Negative 49393-5) Nitrite, UA (test code = Negative Negative 5802-4) Leukocytes, UA (test code = Moderate Negative A 5799-2) Urobilinogen, UA (test code 2 0.2-1.0 H = 52458-7) RBC, UA (test code = 2 See_Comment [Autom ated message] 11021-9) The system [employer] generated this result transmitted ref erence range: /HPF. Th e reference range was not used to interpr et this result as normal/abnormal . WBC, UA (test code = 17 See_Comment [Autom ated message] 5821-4) The system [employer] generated this result transmitted ref erence range: /HPF. Th e reference range was not used to interpr et this result as normal/abnormal . Mucus (test code = 8247-9) Rare Squam Epithel, UA (test 8 See_Comment [Au tomated message] code = 42277-9) The system [employer] [facility] generated this result transmitted ref erence range: /HPF. Th e reference range was not used to interpr et this result as normal/abnormal . Specimen Source (test code = 2795) PEYTON (test code = PEYTON) Storage Battery Inspector And Tester ID - [auto]Storage Battery Inspector And Tester ID - tech Lab Interpretation (test Abnormal code = 92458-6) [facility]/Microscopic + Reflex to Culture 2022-07-12 19:33:30 Test Item Value Reference Range Interpretation Comments Color, UA (test code Yellow = 5778-6) Clarity, UA (test Hazy code = 5767-9) Specific [place], UA 1.026 1.001-1.035 (test code = 5811-5) pH, UA (test code = 6.0 5.0-8.0 5803-2) Protein, UA (test 20 mg/dL Negative A code = 77463-7) Glucose, UA (test Negative Negative code = 365) Ketones, UA (test 10 mg/dL Negative A code = 2514-8) Bilirubin, UA (test Negative Negative code = 23234-9) Blood, UA (test code Negative Negative = 87617-7) Nitrite, UA (test Negative Negative code = 5802-4) Leukocytes, UA (test Moderate Negative A code = 5799-2) Urobilinogen, UA 2 0.2-1.0 H (test code = 16319-3) RBC, UA (test code = 2 See_Comment [Autom ated 91585-4) message] The system which generated this result [...] 8 See_Comment [Automate d (test code = 98248-8) messag e] The system which generated this result transmit svetlana reference range : /HPF. The reference range was not used to interpret this result as normal/abnormal . Specimen Source (test code = 2795) PEYTON (test code = PEYTON) Storage Battery Inspector And Tester ID - [auto]Storage Battery Inspector And Tester ID - tech Lab Interpretation Abnormal (test code = 93564-9) [facility]/Microscopic + Reflex to Culture 2022-07-12 19:33:30 Test Item Value Reference Range Interpretation Comments Color, UA (test code Yellow = 5778-6) Clarity, UA (test Hazy code = 5767-9) Specific [place], UA 1.026 1.001-1.035 (test code = 5811-5) pH, UA (test code = 6.0 5.0-8.0 5803-2) Protein, UA (test 20 mg/dL Negative A code = 57966-9) Glucose, UA (test Negative Negative code = 365) Ketones, UA (test 10 mg/dL Negative A code = 2514-8) Bilirubin, UA (test Negative Negative code = 60232-0) Blood, UA (test code Negative Negative = 83685-7) Nitrite, UA (test Negative Negative code = 5802-4) Leukocytes, UA (test Moderate Negative A code = 5799-2) Urobilinogen, UA 2 0.2-1.0 H (test code = 32113-6) RBC, UA (test code = 2 See_Comment [Autom ated 42621-3) message] The system which generated this result [...] 8 See_Comment [Automate d (test code = 02232-4) messag e] The system which generated this result transmit svetlana reference range : /HPF. The reference range was not used to interpret this result as normal/abnormal . Specimen Source (test code = 2795) PEYTON (test code = PEYTON) Storage Battery Inspector And Tester ID - [auto]Storage Battery Inspector And Tester ID - tech Lab Interpretation Abnormal (test code = 79794-0) [facility]/ REFLEX URINE [id number] 19:33:30 Test Item Value Reference Range Interpretation [...] = 516) SOURCE(BEAKER) (test code = 2795) Storage Battery Inspector And Tester ID - [auto]Storage Battery Inspector And Tester ID - techRAD, CHEST, 1 VIEW, NON [id number] 09:00:00Reason for exam:->DyspneaShould this be performed at the bedside?->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 IMPRESSION: Percutaneous placement of a 8 Setswana drainage catheter into perigastric collection, yielding 10 [...] MDReport Verified Date/Time: 07/10/2022 19:23:56 Reading Location: [place] [id number] Angio Body Reading Room PROTHROMBIN TIME/[id number] 04:48:18 Test Item Value Reference Range Interpretation Comments PROTIME (BEAKER) 15.8 seconds 11.9-14.2 H (test code = 759) INR (BEAKER) (test 1.34 See_Comment [Automat ed message] code = 370) The system [employer] generated this result transmitted ref erence range: <=5.90. The reference range was not used to int erpret this result as normal/abnormal . RECOMMENDED COUMADIN/WARFARIN INR THERAPY RANGESSTANDARD DOSE: 2.0 - 3.0 Includes: PROPHYLAXIS for venous thrombosis, systemic embolization; TREATMENT for venous thrombosis and/or pulmonary embolus.HIGH RISK: Target INR is 2.5-3.5 for patients with mechanical heart valves. Screen, [id number] 02:02:32 Test Item Value Reference Range Interpretation Comments Preg Test, Ur (test code = 2112-1) Negative Negative Lab Interpretation (test code = Normal 20651-9) [facility] HospitalP[facility] Screen, [id number] 02:02:32 Test Item Value Reference Range Interpretation Comments Preg Test, Ur (test code = 2112-1) Negative Negative Lab Interpretation (test code = Normal 49998-0) [facility], [id number] 02:02:32 Test Item Value Reference Range Interpretation Comments Preg Test, Ur (test code = 2112-1) Negative Negative Lab Interpretation (test code = Normal 63668-3) [facility] HospitalPREGNANCY SCREEN, [id number] 02:02:32 Test Item Value Reference Range Interpretation Comments TEST URINE (BEAKER) (test Negative Negative code = 583) HEPATIC FUNCTION [id number] 08:22:56 Test Item Value Reference Range Interpretation [...] (test code = 11 U/L 6-55 347) Storage Battery Inspector And Tester ID - PIAYA LBASIC METABOLIC [id number] 05:37:44 Test Item Value Reference Range Interpretation [...] not appl icable for dialysis patien ts Storage Battery Inspector And Tester ID - JULIANA [id number] 05:37:44 Test Item Value Reference Range Interpretation Comments MAGNESIUM (BEAKER) (test code = 1.7 mg/dL 1.6-2.6 627) Storage Battery Inspector And Tester ID - JULIANA [id number] 05:37:44 Test Item Value Reference Range Interpretation Comments PHOSPHORUS (BEAKER) (test code = 2.7 mg/dL 2.3-4.7 604) Storage Battery Inspector And Tester ID - JULIANA LC-REACTIVE [id number] 05:37:44 Test Item Value Reference Range Interpretation Comments C-REACTIVE PROTEIN (BEAKER) (test 5.08 mg/dL 0.00-0.50 H code = 676) Storage Battery Inspector And Tester ID - JULIANA LCBC W/PLT COUNT & AUTO [id number] 05:06:09 Test Item Value Reference Range Interpretation [...] (BEAKER) (test code = 2801) COMPREHENSIVE METABOLIC [id number] 13:36:22 Test Item Value Reference Range Interpretation [...] not appl icable for dialysis patien ts [id number] 13:36:12 Test Item Value Reference Range Interpretation Comments LIPASE (BEAKER) (test code = 749) 105 U/L 40-240 LACTIC ACID, [id number] 13:32:48 Test Item Value Reference Range Interpretation Comments LACTATE BLOOD VENOUS (2) (BEAKER) 0.80 mmol/L 0.50-2.20 (test code = 2872) Urinalysis w/Microscopic + Reflex to [id number] 13:02:00 Test Item Value Reference Range Interpretation Comments Color, UA (test code Yellow = 5778-6) Clarity, UA (test Slightly Cloudy code = 5767-9) Specific [place], UA >=1.030 1.005-1.030 (test code = 5811-5) pH, UA (test code = 6.0 5.0-9.0 5803-2) Protein, UA (test 30 mg/dL Negative A code = 03507-1) Glucose, UA (test Negative Negative code = 365) Ketones, UA (test >=80 mg/dL Negative A code = 2514-8) Bilirubin, UA (test Positive Negative A code = 03712-8) Blood, UA (test code Negative Negative = 47738-2) Nitrite, UA (test Negative Negative code = 5802-4) Leukocytes, UA (test Trace Negative A code = 5799-2) Urobilinogen, UA 0.2 (test code = 72323-4) Bacteria, UA (test Many code = 41983-6) RBC, UA (test code = <5 See_Comment [Autom ated 799-7) message] The system which generated this result transmit svetlana reference range : /HPF. The reference range was not used to interpret this result as normal/abnormal . WBC, UA (test code = 50-100 See_Comment [Autom ated 18178-5) message] The system which generated this result transmit svetlana reference range : /HPF. The reference range was not used to interpret this result as normal/abnormal . SQUAMOUS EPITHELIAL 20-50 See_Comment [Automa svetlana (test code = 43483-5) messag e] The system which generated this result transmit svetlana reference range : /HPF. The reference range was not used to interpret this result as normal/abnormal . Specimen Source (test code = 2795) Lab Interpretation Abnormal (test code = 36630-4) [facility]/ REFLEX URINE [id number] 13:02:00 Test Item Value Reference Range Interpretation [...] SARS-Co V-2 (test code = target nucleic 80228-7) acids are not detected in thi s [...] revoked sooner. Fact Sheet for Healthcare Providers: https://www.Email Data Source/Documents/Xp ert%20Xpress%20SAR S%20CoV-2/Fact%20S heets/302-7302%20S ARS-COV-2%20HEALTH CARE%20PROVIDERS%2 0FACT%20SHEET.pdf Fact Sheet for Healthcare Patients: https://www.Email Data Source/Documents/Xp ert%20Xpress%20SAR S%20CoV-2/Fact%20S heets/302-3801%20S ARS-COV-2%20PATIEN T%20FACT%20SHEET.p df Lab Interpretation Normal (test code = 13213-7) [facility]omatic ONLY)2022-07-06 12:35:39 Test Item Value Reference Interpretation Comments Range SARS-COV2/RT-PCR Negative Negative The SARS-Co V-2 (test code = target nucleic 71140-4) acids are not detected in thi s [...] revoked sooner. Fact Sheet for Healthcare Providers: https://www.Email Data Source/Documents/Xp ert%20Xpress%20SAR S%20CoV-2/Fact%20S heets/302-3802%20S ARS-COV-2%20HEALTH CARE%20PROVIDERS%2 0FACT%20SHEET.pdf Fact Sheet for Healthcare Patients: https://www.Email Data Source/Documents/Xp ert%20Xpress%20SAR S%20CoV-2/Fact%20S heets/302-3801%20S ARS-COV-2%20PATIEN T%20FACT%20SHEET.p df Lab Interpretation Normal (test code = 18434-9) [facility] (Asymptomatic ONLY)2022-07-06 12:35:39 Test Item Value Reference Interpretation Comments Range SARS-COV2/RT-PCR Negative Negative The SARS-Co V-2 (test code = target nucleic 19138-1) acids are not detected in thi s [...] revoked sooner. Fact Sheet for Healthcare Providers: https://www.Email Data Source/Documents/Xp ert%20Xpress%20SAR S%20CoV-2/Fact%20S heets/302-3802%20S ARS-COV-2%20HEALTH CARE%20PROVIDERS%2 0FACT%20SHEET.pdf Fact Sheet for Healthcare Patients: https://www.Email Data Source/Documents/Xp ert%20Xpress%20SAR S%20CoV-2/Fact%20S heets/302-3801%20S ARS-COV-2%20PATIEN T%20FACT%20SHEET.p df Lab Interpretation Normal (test code = 34051-6) [facility] (Asymptomatic ONLY)2022-07-06 12:35:39 Test Item Value Reference Interpretation Comments Range SARS-COV2/RT-PCR Negative Negative The SARS-Co V-2 (test code = target nucleic 24780-4) acids are not detected in thi s [...] revoked sooner. Fact Sheet for Healthcare Providers: https://www.Email Data Source/Documents/Xp ert%20Xpress%20SAR S%20CoV-2/Fact%20S heets/302-3802%20S ARS-COV-2%20HEALTH CARE%20PROVIDERS%2 0FACT%20SHEET.pdf Fact Sheet for Healthcare Patients: https://www.[employer]/Documents/Xp ert%20Xpress%20SAR S%20CoV-2/Fact%20S heets/302-3801%20S ARS-COV-2%20PATIEN T%20FACT%20SHEET.p df Lab Interpretation Normal (test code = 80538-7) [facility]2022-07-06 12:35:39 Test Item Value Reference Range Interpretation Comments SARS-COV2/RT-PCR Negative Negative The SARS-Co V-2 target (test code = nucleic acids a re not 1501744) detected in thi s specimen. Negative result [...] individuals suspected of CO VID-19 by their [facility]. This test has been authorized [...] revoked sooner. Fact Sheet for Healthcare Providers: https://www.[employer] m/Documents/Xpert%20Xpress%20SARS%20CoV-2/Fact%20Sheets/3023802%09UBET-MXH-5%20 HEALTHCARE%20PROVIDERS%20FACT%20SHEET.pdf Fact Sheet for Healthcare Patients: https://www.Leostream/Documents/Xpert%20Xp ress%20SARS%20CoV-2/Fact%20Sheets/3023801%98SVSQ-RGM-2%20PATIENT%20FACT%20SHEET .pdfCT, [id number] 12:27:00Unlisted Reason for Exam - Click Yes and Enter Reason Below->NoProtocol Please Specify:->Standard ProtocolWill this procedure require oral contrast?->No [facility] : 1980 Sex: FFINAL [...] Stearns Verified Date/Time: 07/06/2022 12:27:18 Reading Location: [facility] C013X [facility] Consult Reading Room PT/[id number] 11:56:50 Test Item Value Reference Range Interpretation [...] mechanical heart valves.CBC W/PLT COUNT & AUTO [id number] 11:25:04 Test Item Value Reference Range Interpretation [...] PERCENT (BEAKER) (test code = 2801) POC-Glucose [id number] 14:06:23 Test Item Value Reference Range Interpretation Comments POC-Glucose Meter (test 117 mg/dL 70-110 H : TE STED AT [facility] code = 1538) [address] [place] [address], [facility]: Storage Battery Inspector And Tester/Techni sandy ID = [id number] for Rehami, Ronen Lab Interpretation (test Abnormal code = 35050-6) [facility]-Glucose [id number] 14:06:23 Test Item Value Reference Range Interpretation Comments POC-Glucose Meter (test 117 mg/dL 70-110 H : TE STED AT [facility] code = 1538) [address] [place] [address], [facility]: Storage Battery Inspector And Tester/Techni sandy ID = [id number] for Rehami, Ronen Lab Interpretation (test Abnormal code = 25645-2) [facility]-Glucose [id number] 14:06:23 Test Item Value Reference Range Interpretation Comments POC-Glucose Meter (test 117 mg/dL 70-110 H : TE STED AT [facility] code = 1538) [address] [place] [address], [facility]: Storage Battery Inspector And Tester/Techni sandy ID = [id number] for Rehami, Ronen Lab Interpretation (test Abnormal code = 27882-7) [facility]-Glucose [id number] 14:06:23 Test Item Value Reference Range Interpretation Comments POC-Glucose Meter (test 117 mg/dL 70-110 H : TE STED AT [facility] code = 1538) [address] [place] [address], 770 30: Storage Battery Inspector And Tester/Techni sandy ID = [id number] for Ronen Vann Lab Interpretation (test Abnormal code = 95789-0) [facility] [id number] 14:06:23 Test Item Value Reference Range Interpretation Comments POC-GLUCOSE METER 117 mg/dL 70-110 H : TESTED A T BSC 6720 (BEAKER) (test code = [place], 1538) [address]: Storage Battery Inspector And Tester/Techni sandy ID = [id number] for Re hami, Ronen Tissue [id number] 14:57:34 Test Item Value Reference Range Interpretation Comments Case Report (test code Surgical Pathology = 104) Report Case: [id number] Authorizing Provider: Jose Antonio Martínez Collected: 06/20/2022 11:46 AM MD Froilan Ordering Location: [facility] Received: 06/20/2022 01:27 PM SERVICES Pathologist: Veronica Mccoy MD Specimen: Stomach, PARTIAL GASTRECTOMY DIAGNOSIS (test code = d2xnnWTbYSSye5jwPSJroXD 3220) uZzEwMzNcZnRuYmpcdWMxIH tccnRmMVxlcGljOTYwMlxhb mYgHHWrmNUjZ4CjkkfvLQsm ER6zAJ0bzCjcyXIbfZQuGST jXqVrc3qmq326lBGin7mwAJ KCvjmtxGi5qPdhB13yz3I8V flfX79vhVOwJOT8IPZaSHZe uDXqCUFwJJU3PVZneKEpW3x cUIFoUV4fyvibFLahJNpeYC ZopGZ7YBMquRCnB7MzWSZdJ HxyDGIdbkq5DqJfNm3sjDFs eTcyMFxwYXJkXHBsYWluXGZ vPwAyAY6zG4WKLHVGFHotYZ WTLEsPQXQJYKWXQkLSFO3ET EwejSQzCRIrVyBrK0lMDjRB OxSQSQBLF1WwT0gUZPOJEhN NCNbASWSTY5SLVFUFTXBFD1 mIA7eSVTBCRDLWIUFQP68dr GFyXHRhYiAtTkVHQVRJVkUg Ub7RTTfJDXkTA5NLN5FXCdM BFMYNT00RO7OKCHERIvQJBd ODU6FYJU5IGOKKCIsDQ5hpD UU6n7lmkFUnIAJphSJfJHWi MFxhbnNpXGRlZmxhbmcxMDM hQSR0wwGtHOUxABiqGUVsOW stOc8chOAeuAueCbYzFGRzc 1iqkvMHdjsiwMc6v6mqRNSu ThG2wRQmEGcjB2tgpnVjfRG mBKUpJTh5jJ79DZMirC1agO PvZNrrbbWpDgE6UEhaBGYkM kI9BBIihDUlLEIuA0grOZIq FJsbULBeGXfatDZhILG4eKi fs4P1rMCzcUZucMbcZzMsUm QmXkDWl6ClSKa6yVopC6GzX YIaQhS3pJNjWDPuVHpeNJEa HPOklaQ9lQ96SYymleZ0cCN ps8Phe12fp666jO1oyGYpFZ C8TZCcBEYsvFQdYRVkFKV6R IYkhYCuZ4hhBYZpJA8dbwja WOtlDOcrLXLfcHP9RNRucWA cJ7FoWBQkYBkqFLHncvh1Su XlPy9vdCEnnVhaLMkle6ozw 8fyeAIfAvz6XYHiWmBpBqvl RYtrk2Fyd9ffKYCpvx9aHIN 6rFMafTizm5D1vSXvMWLgkV PtXTDiOM1ltFDlGLKicJ3aw mxjXHBnYnJkcmhlYWRccGdi duSnZn4clGgbAMC3QCkwA4s ogY0xKfN3YQoqU9thzN1oPM q6WLjrDQIuxQU1jvZ9JQHix KYjP5GvbP9fGYGmDO8pezb6 a4xnSPI7BZjoVYXtIpV6qhD 3VCXycVUiNMAqvBdrKWukx1 38HWP4VrQcPWSqb0HyI3Jxe RbeF35yfNsnX73iODIfkEzn aO0teHaauG0vYsVqGwSbUHs boMtoFC5kXLExW4qmnTUiRU DjHZDmY5veSjLbtN7mfDpgT SrzsoCkLZEgVzw1HNZrfMXd AUBhTbw1HAQcTOJtR96iios wJAV0oZ5ht3ycb8XoZDagYE O5RWFnw96yPSupcxQ2CZviB o80PNrjKJL1KJjuDEK0cT== CPT Code(s) (test code r2tntQEjDDZchLU4AiEoUEJ = 3357) tw0ebp4UqnGIfdJCiWDxdoW AuhzFrqr25gVM5rC84OH3fH YVgGgO3MRHavsX4Bef6MANe AKQqtUHjK908o2qhn1pmqfY hqUJ0mXiwOOKylvkkCyD7LG ojQVAkjhgnCVr1KZbkZKSnm LQ5HIVpnOIwN5RmBEPeKU2g hay6YGJ5LXxiATCuCpS6PHR luHPuJLEhiNfmPUcuj723DA U7PiYeUYFyjfJswItjfG3gS hCqJUZ9KSTqE4kyMXR4 CLINICAL HISTORY (test c8ppkTKvNSZcpLA8DcXqPRW code = 3356) sw7ecm7JoqOJniGFeTGxkrI KtorYbbj91yNM3wD12WD3aB PWjWlQ0TTPsykD6Xax3XAIn LTIruVHfT363h3hgk3kfhgT tjSQ6VREoKCCvP5AmPD1pEQ DabCUkY83fbBAbHSN3AGNfD KYxnFSfDNOsPOV1JBAvuRRi A4vlYVPmGK7czrbnCVaeXKz lGSRxvPY5PRXglIQdF8KcZC RvFNbdVPLmjvk7EsQyDv6pj GVyeTcyMFxwYXJkXHJpMVxw vBAhqftgzzMdQCUgLWIVj6Q yzCTpu8Jmb7y8pLupmWcdNO OTx3K0VO1vc2UzzU9kSKagQ HOhOC02DL01KTLiROKlrUnr eMwzMMYCx3SipqMbYBpxhZl iKFY0GR7mjR7sOOHyTQpaX9 5hbnRccGFyfQ== SPECIMEN SOURCE (test z5nvrGYyLZIvyCP1ToIiKNN code = 3377) qm2yff5TkfZZwvDDxSKnjxI MbpgKvoc33iGB1hF35HP1dA EMeWqQ1RSOjejR7Qjh9HRSv XTVnhCAzI340d5lug9qvclO vbVK8aUkgZTQalyzcMkH2KY cjAZLltktrCKx9TMhyZHXsi AZ2ILObyEIpB7HbVAXgFR5b hdl8IDC8HKhwSRPeKkS1JWQ shZWxTTFufHiqXWyff264UV I2XkIqMHFobjNgyVereF6bV pYkZBMPoW2kSTEkZTWeen3= GROSS DESCRIPTION j3szkKWeBWWkcIS3XfQmSWO (test code = ek5aii3VirHQjyJWnQMpipE [id number]) WiczPvdr54hOO7iN99NI4uR BBnGiM6NWTgttZ2Zrq8RLTz ZGHncSRtN986l9njf9rcbeL zqBB0uLkeRVFghkowHbN5GQ ugBOSivpqeLHu4APixTLFyy IJ4QOXuzZQfY2OfBYRiHH2f pwr8PIJ9DSynKITpSbO4HIX ghBEhZNKhlRbhHAqtv925UL R9TkNzURGbuiU5DAswUVHoL 1AnB3JhIVnfUEW8DSOpBVQb SGBvBNXuHFIoWEuzwhM7s7g jOULkeXRvOIW0SRcncBKcOQ JiBJQgJHilBfKIYkAtLiG0J CxpQUPzPjT1YQv1WJELPlFd GrZgCxF6CuI2AfIhQVk9CPm 8KEnWFeV4ZKL8XYB6FqukQE FpQiHlBSp8LNEpBDjllVYqK IFhLFMaNZcgBAiuH23hlQdu mJ2tJzEqHBQLBaAIiJ7xFLS oLlxwYXJcZnMyMCBSZWNlaX CtZSLnblAxj3LhTJblcuEoK AIftXIfGINtLAFxCXIxVJ97 L9DwhyFbFPrnHUSeSAKrcV8 dGY00nJUnahOospNcJlLyns ZvTGiiY1LdvDTwN1AsbQyoM KkaDHVnYdWbCIY6NGQgMPJ8 BOAgAFMmnZK3sy0nvPYfgHO yKQVvpgYle47kq5Kwm3McsY HfpEJ4hUCoRSGnNkQaTZWey BAamC5iNAMwm1NsxVqwRNyf saLwNVGIoAEgo3Mlu3QfZQk mHXIfvv0gdT2fZZSmbE9jrH qtCT8wYNf5mSXvYR7tWi2oH GNzZDHcgTEjrU7uymGqjgHr gBSyZJHjeY7pyhK6CKSkHIQ stIWxUZIjwkraXFNkG5YyuX cxWRR3pQqjcEX8d6XmXX33R 86qIXL0xLH9XMJhg1MqZOat HK1ptp7nmCLfwXparHVox7e rcp3yNG0eCAOsn1TcZJYqXG xpr2qnibSwTMLhZLyxSS23k WZpZWQuICBSZXByZXNlbnRh uMl3BCLoEHB5tN1fumCvoxX dy8PpyXc3lLImMYpqLXUgKM ScCwlocO3yIVmnvsKvWWctA XIgQXJndWVsbGVzLCBQQSwg WFWbQEAXG7Cpz3hlbPjrj6D nhBPkAZ22ZNYqzFJhOWA4BB 2sbGnkKXT9 MICROSCOPIC x0yntYNdVQScgPX9DlTxFKY DESCRIPTION (test code wh7pfa9DahALteGTqKUjyoZ = 3371) SbfhBomw45jAO8zH66LZ8qK OFyNnJ4VRFzyyH5Cjc1WRFq VNKhfYOiT689g3jtz9kvuiQ wsCS9pZxmGAHlunvjNjQ8TM xsTSZqjtkiNUb7EJwmDZVgm YL5DCAhiXYyS1DcLONaPN6x ldi5QRA3IIhwUTAqIoR7KEL aiDMnSGBrjDbhHOntx959ZD V5AfWdQMGfaiFzjYcbsD0dX kDqHYFOmcZcrOgtvFMcE8Jt cFRgaiUoQD6cMRVko55mQXh uhLKytXiuJGqspQR4EZMbEB ApGBtdLZoloBvod9whNT1oT Y3idNyjogAkX3ghwUOkl7Nr gn8tUa0vDSTjqUXbTjMjnTZ dKU7kH9Whw8AzRS8iz40pCP VqNYLwPYUoGW1bNZRiuTTcy oVbw2OwwD3lCpYrAKDbgv9= Gross assessment was [facility] [place] performed at ([facility], code = 2777) Department of Pathology, [address] [place] [address], Technical component [facility] [place]'s was performed at ([facility], code = 2778) Department of Pathology, [address] [place] [address], Professional component [facility]'s was performed at ([facility], code = 2779) Department of Pathology, [address] [place] [address], [place] [address], [facility] [id number] 14:57:34 Test Item Value Reference Range Interpretation Comments Case Report (test code Surgical Pathology = 104) Report Case: [id number] Authorizing Provider: Jose Antonio Martínez Collected: 06/20/2022 11:46 AM MD Froilan Ordering Location: [facility] Received: 06/20/2022 01:27 PM SERVICES Pathologist: Veronica Mccoy MD Specimen: Stomach, PARTIAL GASTRECTOMY DIAGNOSIS (test code = n4yddPLrQFKvg8nkXYHkbQA 3220) uZzEwMzNcZnRuYmpcdWMxIH tccnRmMVxlcGljOTYwMlxhb sCuDGQotVUqY0AmyzslUGep QL4cAO1miTzzkSNhsEWsIQZ kZiQsu8rwj793fGKaj7qpDR WKpyvzvIt4nGbmE85kr1I0B eolB13ofRGgORA6UMKzEALb oRAzEWSrERQ7DIXngWAjE4s eEYGbHN5honfqFJepPZlzVU WmmQB5QXHugCGbI8FtNQFfR RxuIZNzjbp1PbNvOu5nwGJr eTcyMFxwYXJkXHBsYWluXGZ lQhXxCD9oV4QCQVJQMAenTN DBEAkJUWLBEHKLMpOBER0IY IejxDXmFYMrDfYhY1kPUnAI UnBLMKDNZ1PxC9qPMWADIkW KUGkYWOSVF7ZTPRIVRWDBZ8 qUA0fBXCOFLQBWCMWIH48xy GFyXHRhYiAtTkVHQVRJVkUg Bg9JIIfKUZcXR9DFJ2LAPhS VRSZPT21EI9CZPCOJSlVDFc DYK6QOLU6RKAJIFNtBJ7tvO JA7f1ubqZSwGHPohTGkWEZe MFxhbnNpXGRlZmxhbmcxMDM jTFT0peLeKGWlWNiwAGCaYI hzUj0riTVvtVpyAiBhFLYwu 4tsamOGxhmrmTh7p4fxHKHd JxB1kRThEIdbA6yfgbMgcNW jOPRrCZd4nH02JVVsvJ5oxS RpJWepsvMkYsC7IMdbOIXiL yK4VCOqrZOzHLRdJ2blRXNi GPcjEEQpWZpmhLHaBRA8vHa hs2H6hDBybREfiEdeRxRoMy LbXtTYa1OrCDq3nZsiO3NpH NGoEtZ3bKCsTLPrIRrxBZSs DPJmeeZ8jQ47RXrxogS2ePG fo1Xbf52qs648eT8mgTRgKA M5RRHyYLBgrECuRESlLWC7C JPbeHEmL7fnKTFhRD9ximjg KOdrOPmuTFFjkXG8GMSxmYB nF0TzRQHuMHgnRAYkahp5Ec JqBv2rwMYbsQoeQIoks7bhb 7wuyADgJla1TRQnWtCvLsys CZbgg4Ucj1maCNBfpq4lRYS 6lBZbfRzar8N1jLVrCZNnhJ McPKLhXA2guJVvVOGjyH6cc mxjXHBnYnJkcmhlYWRccGdi nkYlUx6jpNbcJXW4JIinU0z pdD5tOeG0VAyuX6qqfQ5tTB z5ZJjhKQLtuGK3xeJ9BZNsc CYoC6UeaJ3xXUQtMJ2hugw6 a0brUDB0YSjlXUWjVnU1chO 4SLXidXZkSVAboPmdSSidq5 87SGI3XxJeWUBwp4WwR1Gsj IzyY58ugVjgT12dUQVqcDtq fG4qgUwifH5bTbXdMaRgQNj thNblPV8lOZVwJ1uueEQcBO XoAQNyV1ldHlNwkG3wnDhvJ NtumnVrYRTyDtz1DLRlhGZs LCRfNws1JMPcCTInL30vtuj vSRE5qY7gk2mbi4IxTSrkDC F0PFRtn88dZCjkdcW9RNgjQ t10CHsoGVJ8DCfmWDV0uS== CPT Code(s) (test code u3fkaBUaVMFvsKX7PrZcVLS = 3357) hl5dnr2HlvGHysMEgNOxfnT LuqiHhad66cGB1qN94ZO4kV KOdPwC3STYmeyU1Vub4PHZt WPVimIKrS777h3nfw3cznhB fjJW5aUngWOAocfnpVbD1SF iuLVLxcldnXWf5TRfmMORfy LB2VVLevMGwP0JtIOOeBT6k jcc3TZT2TAqvNVGvVqO3SFS xhABmBFDdcAqbQPvit549LM V4YoEsTZUrmpGfiYzpoZ3mL fGtKSI0AFJqZ7gkGUL4 CLINICAL HISTORY (test m6ctiXMyQDJfaNM2FxLiLDW code = 3356) re0wko4JmwIXorUBxVGmbeU VuawZwva71eFP6gQ24MP8cN ZZvUlF9VIGfbeR4Jvm3LKYd HAPdbOPxU986a0tya2jagsK zwRD3AYDmAWAfC0TiRU5mPA JdvOYvC31moZQiOUX6VZRfW IWxjMIoCSIbSGK7JKWynNNy W4ifXDGvSP4keifrEJkiJYa vDWPyaMA8JXVwvFDqZ3QxOB NyTMhrWMIgzhu9VeOxWv7ii GVyeTcyMFxwYXJkXHJpMVxw nQOvktorydUaVBVbWDHOq7D clJOdb6Mtx5t0nSjbuFxmMG RWx0Y2TB9jr6XapB7sGUaeX HUvBI19QY38BOAdVAIpbLyb yIfmUGMEj6CnumWpYMfjqCk cDGE2WO9qsB1rXMHhVYzvK6 5hbnRccGFyfQ== SPECIMEN SOURCE (test z9yiaPJrVAXrhKH9OcOzRRO code = 3377) kk8umn9OspYOsiXNlLCfskV TvtqWgpm65sPL4rT43SJ2kG YQxIjO9NTEzehS6Dmk4TOYp UZErxWGlP899e5gxj6apdyB slHQ9sCwgYYMqsuwdEuD7VM ofLWRimveeUZp0RUmlBRNzf OD5USUfdOBoV5TbNUEqOP6s fwm8ZRQ6VLzzCDQrCeB2YDT utCSqLQFbsBaqEUmtp174AN V1NbEwKEQrvlGxiUdtxC3eO sQpUJXUtL2bCWPeXILiec1= GROSS DESCRIPTION t2ylnBGcOCFjyGE9JnRnZMC (test code = rg5ahw8AgkRYmjOMtTWtlmV [id number]) KyfhCanj41sKP9wY78XS3nQ JIuQqZ3BZJiogG6Xtg4KFYd UYRekBNaZ096v7rmb8ytfqY iaAA1vFktJTSllzcsEdW7US ajXHFvegtpQMf4IUqiQBOor AY8ZUAvyNMmO2VkPIHhZX6y ric9SGT1NNuhPJBmZuU2XBO ifZLpARKwiJjvJComx613VL U8DgCzPNRvdoX3ZFfjYZClH 6XgL2QjDZmdOGZ6UZSqDWCm KTPxBKEfOCDgJCtlciQ0w2t iOCTeaRPjHGQ5IHgcdYHsIY EnNTPzDPbyAwVYNlPgDhC8W FivSGOkWjS4KLw2UITUJtJl JpEdVxG5FjF3WmXcVYa8XQe 4INuNBnS6BFB8NIM5MzhuRY RwIcDdZSe3IHFfILoymGShG SPmLFYxWArlMNjyK37qtFci eT3hRpTtVUERZuTDqD2yROA oLlxwYXJcZnMyMCBSZWNlaX NvHAJjqrBlw6UpQTkytvFbZ PXbeUYkZMNsQAIfZGFvGD61 Y4LgbtAdHArpRSVxVEEmqK1 gSQ10fKScnfVgdtTxJgLvpr QkMJxlN1TonWUjL7NakZuxT DhsOEHeVdUuMGR1MQNkUIH6 BBMvAJFlsAI3sz0puKZveDW wQCMgqbZbu91sq7Pxq2DcsK QbmNW2pOCsPJQvJpIwADPeb PAopR4cAOLms2McoFdqZIvh uiAtXTXJoPCjz2Mmh5IoNAx zIOKcpz3icM7aXUQhmJ6bxL zkWL1zYFx9cVDuVP4wMs2lD WIaYCUpjCZbpA7arjZnopYv zWOmBPTqxR5bnsU2WDJmPMU nxFEiSWYoddphQUItH1YpqN qfLWM6pPfhnBS9w5EcUO43M 27oFWC6iFI0VNSwz1GxYNrf MW6aho9ibNXgoSgvjHKnp3j ioh1qYZ3sHDOpb7PlWJLhYG gyh6meksUjLLZbXHujUB54w WZpZWQuICBSZXByZXNlbnRh gQz2WPKjQSB2wC2gegPcljL ta2XhxYq1bHJvNTbfOYHmRX GyEkrzeJ6hWKgwbbHdURzyQ XIgQXJndWVsbGVzLCBQQSwg KOQfWJVIY8Zqx2xmxRxpd9P owUOuJU57CQKugHZcQON6UE 7veTxzJLW1 MICROSCOPIC f3rljPHrSUBvfCF7YtTbUYM DESCRIPTION (test code hk9rzu9AfgMKreQJhAQsmsO = 3371) KhtlOgaj93xSK5tT68HP9lM CBdVeN2EPSqznQ9Xcl8PZMm DTNavKVrN632i1mxe7hfjdD ucBC5eGazNSPddysaGwT6EB arVEEyivjaTAo5YVfjMWGfm JY7KZBjzTTjP3RfPTJcAL8u dxl2AJJ9FMmqCJRsOwB9YLF uvAVgXJWvmQgbBIsqp380IR J9ZfUiABGuquNdiPhrcG5mL tIpGXJIahDohNgtyQVjT0Qk pZAvqbDnHU0sVGMqa87lDLz qeUOhoTlxDMeusTG5GGDwUC RgXEhuPMzodLyqr2myCM6mU U2bxIxwtyMuQ7xgyOLsl7Df nk6oUm8qVCNbhWIyZxGvfPT vLV1gM9Vyk4ZyUO9xe75cKD LkMWHyBABkAS8oFHIekNTql cBrj0NnwL0dXkOqYOYunw2= Gross assessment was [facility] performed at ([facility], code = 2777) Department of Pathology, [address] [place] [address], Technical component [facility] was performed at ([facility], code = 2778) Department of Pathology, [address] [place] [address], Professional component [facility] was performed at ([facility], code = 2779) Department of Pathology, [address] [place] [address], [facility] [id number] 14:57:34 Test Item Value Reference Range Interpretation Comments Case Report (test code Surgical Pathology = 104) Report Case: [id number] Authorizing Provider: Jose Antonio Martínez Collected: 06/20/2022 11:46 AM MD Friolan Ordering Location: [facility] Received: 06/20/2022 01:27 PM SERVICES Pathologist: Veronica Mccoy MD Specimen: Stomach, PARTIAL GASTRECTOMY DIAGNOSIS (test code = b6bjkJDgSHCnh6qxNMDxjHO 3220) uZzEwMzNcZnRuYmpcdWMxIH tccnRmMVxlcGljOTYwMlxhb mBxICLpuWCwY2QabjuvXKjn AO8qIA7nxPzspZYaxTOeTEM qEvDgv8jfv824hJCuc3ftQR MKjmhlcIt8gXeeG98to5R6C gxqK55esCJwLTG7SAIrBDYs sKLdTJEyMZX2JATjpENtA8d bECXlUP5plcupKMhhQSlmZI ZheCB4RBAabVYdT9GxZWTkU FlpAXNtgvc8IxNgLd8mbLMd eTcyMFxwYXJkXHBsYWluXGZ uUzLqLS7yR1GLNWVMOOzmDW CVQWtPXSHKNSZTAaZPMM7KI UrccSSpRXBpPrBgP5sXRmJV VlNOQHMWE3BqQ5qGYAGDXiB SLAmPSKAEU3YEGLJIUIIZA5 oZW9xEPXRKXZBWLYAJK40zd GFyXHRhYiAtTkVHQVRJVkUg Dn2IHXzHKXgUC9KKL2MXAlO WVAFWE05QI0HBUMYPMuJNJi EAI8SKUJ8HCICFEOyCP3inZ VQ7o0pfrPPdRTVufOAsQWRh MFxhbnNpXGRlZmxhbmcxMDM kZNM5byOhJKCuVTulJQSgUP uyWa7bzUEpdKufJlNiCXZmw 8uwhuDHxydmtUa7k8vuSELd UbF9xENzSLhnM1yhycOxuCI dNUSrDMw1yT11DHAueU6kjB GpLDnwrnSsHuW6CVbiQSYrS oM6UFWirRPaXWAiD2mjCNPo DWbkKBAbZRuaeYTeFDB6sJv as4L8gUUlnFRaeSomBaGhPm CsKbZCl4DrBHz3qInoM4EvO IIxOzA3kHKaXULjYClyYSDv MXBzypD1zC38PFxvnxX6wTD xk4Xig49at743tL2flPZqWR E9MVSjFVImyCVuIEIjQCS3G ZKroFZfC3fbSMJrCJ8uzann XOqmYGilPRGtxAT3DUWweAL wN6XmWDWpEKpkANXsxot6Fz MyEg4naZChsEklJTcni2fcw 6kysUSnKxh2IUIgBaWyHpdl XKcbp1Cfr6kzTGHlas5pDMC 6nKKrgPtas3L7pIGwEPKowD PbYLSbXS5ndMDwXUOvfL1nd mxjXHBnYnJkcmhlYWRccGdi vlEmMg6dvWucYPW2XZszI8l glW7dWjL5EGpwE0uroZ7iTM c7SFfuKZLriKP9vbP4WHJit SLxA3IwnP6sICLmVD0mkcc3 v8evCEZ6PZzyKKDzZqM0wcA 0EIFmgXFxZCKbnOyeQIeny0 44IMS6KqZcESBos2QmA5Ins OunA84tdIxvS61iSPCqtMrs yT2ozVnquC3zNrXxYcKgRYr ahOmrSR0xXJQxW5monDIhWZ IfDOVdW5pjRtEhvS0ffKlyE UxrjwFjRLWhYxo6ZLHlsMMq RRNsVph3BOWbXSYtT97dbxm xBMX5yM9bh1yft9DlYVmpJM F3EXCdc46sPHdjbmN6WSbsY i95HLlzDRW8KEieYGH5mS== CPT Code(s) (test code o4gkrJXnIAKqjBH6ZeRlYNH = 3357) zu3zsq7QmdKGvhVNvFTwslE IbilHiju52iZR0eL48WZ3pX YPnLgW2XCZhrfH6Npm2YWWg ZHWklSMzJ246b8hio9iwaiU umUE0mXlgKIJlbtrwNnY3QZ jnDZQqsgdaZQr0JYuuNQLgp ER1UCCozWPjH1BlBKIaWF8i zyq6GKM0GNwzLMHdUnQ5YHU qcARaVUJeiNvkHJqrw825OI J4RyIuNHCguhVzxOxznH9zD vMxSHD2PBEoM8hiMZI9 CLINICAL HISTORY (test e6hxqHLlDWAsrJU7QdEzVHO code = 3356) me7mvb3FqpHVaiEToCOdlgX DhrmZwbz48bWI1cP14ZE4cQ HWxNxI4XTJlsbM3Bqc8HEXt OCVzvTZxK326b3ouz3yttiB umTR8RLPgUIOrW0RfLA4qVM KcyXFuN36qxMCuIUM4WFGcJ ACsqTBiPOSpNYP8ZNImbNRi Z0dbGILuBC2wbbmhGYzuNRu bQBSdlAF5PQWwzWWhN3FwEE UyLDdrBPFncft1IhPjXl8fc GVyeTcyMFxwYXJkXHJpMVxw pNLclclninLpIXBsFHEHg3M wjPAsc1Suu4l7xQjvgTtzBT AZe7R8LF6wl4WlzG1gOZuqS LYkNZ51QM59PWLwUYSlsIak gDbtMXULc0EglgWkQFrvpWq yYGR5AT6qqD9wXXHeXFmaF4 5hbnRccGFyfQ== SPECIMEN SOURCE (test j9jvqHKmHRQvjID8IpGtSRC code = 3377) fh2ezd9LcuCYaoPXyRQqqvC HehbRgpc87iIR8sM55TO8nB MBnVlD5CYMyuuX2Sma4OXVs BEOvqBFpY116a2ftw3cneuB cwNH4aDmeSOBhewdlMbN5OO rvXIOaaxdtYHg1YLfwDPZnp BV5RXFdvXCfM5OqVZDhFR3n mvj3ITH0NYbvPFFiZdP1JAJ qlNTiEPOqhJygSVtjw152BH T2XjYqBRLaynIldDvhwT1tF gMcWFDVcN9aESGbEYGsej2= GROSS DESCRIPTION r1tnrKOiVSQuqLD3VbDfBBM (test code = fh5jph2UdwBVelMDmRPoviH [id number]) SsqcAjet33xZK3oO70UI2cQ XVmOxM7KBTqagO5Mev2HKOp AMLniTEyH128h4xqv4mpeqH koBD6mQsqOENhhuhoHpJ0RQ okWAYimkjyFFl2ETsjYRYlv YB9JKQnvIOjP0RbPNSwZD1i iio5UWO6PGafKTXhDlZ0WMW zwSAtTECijQqxMUail780UH L8ViGxSHSirvQ7UXktPANlX 7NaY9UpXZoeQOI3YMYpLVUh CGAkIKOxYYPaBDeqspQ4r6v tMXQtdKLjCPW5ETxosRLpTZ NzSLQzMUfiObBNSvDhEeG4J UlbRXQaKmH5TFu3OBNWLeCk YaDtUiL5YvX2VqAnDXi4LOm 1RSyJWjS0YTA7DQR7CisxNY JgQyBcHIy7HVIcAThqnARbY KJfSSWiFVabQAcdQ03ooHyj rO3wFyNtSPHLPgRGoX2rAKK oLlxwYXJcZnMyMCBSZWNlaX XaIWTenkCgs0CqQWptgpTmN SQbdNKnTDEhCWAcMRGcSW56 U4StrxAwQGxvEOCpAFFiiV1 gUW44lTVpizXglhOsUuIfrs PaSEdtU2GtuLKrT9EveUyeP NiwTKRbNrJwEUG9WNFlAHF3 BKXtVFZyzLQ1zj3kfGAamOM xRUUzuiLlq89fe2Nqe2DrbB KocUB7kEUsGMYjJaMhIXHmp ITesO8wNMRas9JqrEmfRZdv tjQePTUSvECyw1Hfj7KrNWk eIBAifq6lsR6xBEVybK2zxR ykUJ3sJKb4uRXiAR8dFh8wP LMoSSUnuCNcdP9wwdBzzaFi aLWqVNTjiQ8kaqE1OGWnMNJ shBWnMHIehffpCVNjI4CguF nsVEG5yVfjrBP3y8OeRK08O 45tKLO9nAG7JIUyn6MjNSke IB5awj3giMCeiMxklHEwx7k aea5aAN2eWSDnz9CzSTIzLK zyo5jxtcAfYRXvPQyhJK71c WZpZWQuICBSZXByZXNlbnRh uXk0OMRqKKP2dF8kerRcevK rq4PycIt2uQFgRWxbASKbUH SyOfwmaR1sKFeefrOjFLiiW XIgQXJndWVsbGVzLCBQQSwg XZKwNHMHP8Cub9veiVhim2G otACvAM88LYKltERkNIT8HE 2otRtqXJG1 MICROSCOPIC g8irvECmXYGjhAL3KvOlJLR DESCRIPTION (test code tf2wis2TxkGAceXJwDQvjvL = 3370) KjnfKmmp36hMZ1wR41UV6nD WGlPdY3CQNfkiJ0Yhd3DDXn YTXhiGPaC994n7mum9pcfcP hyAD0pUhiVNUzjeivEoV6MA dzSXHfxatfIWu9BCwbEJZkd RO7ZJPtsWGlI8DvIFHiDS1b dqc4FFR9NFvnXHKtFcU0PNS wmFBxHKJfcMqjWBppj015KY Z0DbUiXUBrkiKwfRrgdI9qL nFiSGJBfqHslLrdzLQkL7Kh bRSqlaEhWZ7vSKFis70iTTh miMPupRjiRIudqBZ2URCxUD XdNBufAQupgEvsr0mqYA8gD U8vxUfggbDoH5ggiOXux7Ws pg1hAs5mOKArhXVpKdWzsFF tMG0bN3Xma9XiXD9se41tHS UhAMOsZJLjCJ3vZFBwuTNbe kBuz6WnqH6vDaAaLJPino3= Gross assessment was [facility] performed at ([facility], code = 2777) Department of Pathology, [address] [place] [address], Technical component [facility] was performed at ([facility], code = 2778) Department of Pathology, [address] [place] [address], Professional component [facility] was performed at ([facility], code = 2779) Department of Pathology, [address] [place] [address], [id number] 14:57:34 Test Item Value Reference Range Interpretation Comments Case Report (test code Surgical Pathology = 104) Report Case: [id number] Authorizing Provider: Jose Antonio Martínez Collected: 06/20/2022 11:46 AM MD Froilan Ordering Location: [facility] Received: 06/20/2022 01:27 PM SERVICES Pathologist: Veronica Mccoy MD Specimen: Stomach, PARTIAL GASTRECTOMY DIAGNOSIS (test code = x3pwnPFqCNDel9jvOZUoqUQ 3220) uZzEwMzNcZnRuYmpcdWMxIH tccnRmMVxlcGljOTYwMlxhb uEiKARohAPiN5KyttrpKJnw VF2bUF1igXknmVPaiJYxOIB dEnFyr5uja409yOSma0vdTE EAykxivRr7hAaoG57os7U1L iduM03yzIJkHEO7PBXaDFGu nRFcNVPxDJJ8SAFzpFYaL1q dKIZxIS2iuepaBVpmANefPP IdlQP2TJLuhKCkH9MzNNJeI TrdZIXmshw8KrDmFn6rrIVi eTcyMFxwYXJkXHBsYWluXGZ uLuQyCO6fO4PHCPVMPPdpZD NIHDuPCGQMICBFEbJVFT4XN DgheZDeJBKgRsPyB8oDGiLC VxOZUQAPB3ZzN0qZAHYQYlS UCMvDLYOZB6XFFXRQOORDG3 fLU7jYZINSHPIJFEWXU75me GFyXHRhYiAtTkVHQVRJVkUg Tr0QSPxGXUuJD6ZOI5KLZuM SOJGJI79GA6WAJDSRFvAZMs HSG9XSUE4YCEFMBKmQC5icD SA1m2ajlRRuALCefSEuEODn MFxhbnNpXGRlZmxhbmcxMDM fJQW0qcNmZPFjKJygSSVbBF jvGi7shMBkwKyaIqBdQKMay 8eddpIHdrpqhYt5t3fjDRCk QpX5yZJwBCjpY8vkdaSglFV rDJOoQSz4kW16TZMssF3ohT DjSXtvgvRtOyA3SUxvPGLcK yG4UMIgrALuLPMoU3ylVAKt DVesAOInUJhwhYBfWOB1gGl zk3C8yJWdgPGokTjlCxNuLi YbYjKYy8DwQMa6nJpgP2XpA IRhGqA7wNOnMBJbHRpaLFQd PXSuvuR5fI00YVzvpsG4oTW oi4Jon37jn579gH6egAZhTA B0IIYrTXCeqUQxJENbQRJ3V LYvcDSdQ5hqZWFxGJ2skzfn VMvlIGgdZNLhwLG6QPSglKK gB8JrPZNnIUdlSPEndmg8Lb KyRl0erEQncUirKFpvw9ufq 4xulYQpFts0BBLyWbNtLpfz FAjre4Tkm2ngKFAxuj8bWNX 4tETehNhha8P9ePMyXQQndD BtVTCjIM4edKUdGIScdH1dz mxjXHBnYnJkcmhlYWRccGdi xsNlAf9rxIsqCGX7KFjiJ5v ulW2qSgA8FAkfZ8wywF9iOJ h2YRvgJQEqzZE1yvD7QWNvw EVeA3YlwH9aZVTqBS2lzsk3 f1yzXTS9YTcmGUPmCqH7djS 3ODDgvUQfCLObtIbgJExgc7 47KWJ7ZqMwPQZlq4HmZ0Qbz TnvM48igCidW83pKSGahFwm rJ1qoPgijB5sXjRzJoUcKXf xjQtxVS5jHKTgN4xizLOgHV ElEKNkH6jsQfKekD8dhCwcD AxkcrPiMNEtCab1VBNjqOTu RGSdFsz9HAGhXQOxD45tqli cTTI0tA8vq2qgw1EjZNzfLP J3GNZtr16lUUbesaP8CNadX q08KHoeUQC4TXpsWYC4zM== CPT Code(s) (test code a7woaWPnWNGxsKJ1JgZyHIY = 3357) fh6skk3XvwBKigRDfRIvuhD AdmdKojr30zQP2sA07CK6vU XEyNxT7AFOhlwX1Eit3RLPf WRYpqURxP979o6rzg6klhuB tlEV4rWwyFPGrqdbnEeR4UQ ebLZWyiaooCUf1SNpxBEAvb TZ7WHUejZLzN8PuRUGvFG1e vyd5KOL9SOruBCQhVgK8FOP meUFgTOTvzZhjWEeva740NS N3HfAoXNHcbfLqgOcyhZ3fQ gZaRUE0VJRhA0daXCK4 CLINICAL HISTORY (test o2bubKFcHBOngMI8CjItVJV code = 3356) ab4ffd8KboGBphYMtKYsyaU OakkKrvh80eJB1bY66CG6kO GIjCsX5SKPdeiU6Fnv0ZPGl TLBkaJAdQ415q8vxb8rgvxM wdOO6TQBpLTMpQ5NsKF1oTH ZlyMGeA09fwZSeAKX5ZUNwM THleYQqPRPhQHD7FRGbjNPa M1njQUXxPK4tadmfSCgcLDy vUTPceXY9KAZwbMKtI1VxOA EzZWnmLMKgavi8BqXkWh1gc GVyeTcyMFxwYXJkXHJpMVxw jONoedzjzvFeJKOoZNLMk0V clKYvm8Cps9l9wWyzyMlbMR YIn8U6MO8xc9IzrM5kAJxcP FVzZJ93EC85NFFhZOKtbTsv pAqkONUOo1ZhljLbUHekiPs uLBR4GJ6ppT0gSQLwWGjpL2 5hbnRccGFyfQ== SPECIMEN SOURCE (test d9iwwFKrZQDwcTB1KmMjHIH code = 3377) hw8ozn1VwmXWboIWrTTtvjW ZwyyDqfr93lVT8fV91GW8cL XXpJtX1IYCpcmD1Osw0OYNs HCQyoQPkH164j2vqo5cbxaJ odLZ7aZvcNNZpxwmtRkI5CF poBMMrttddPPs5LUzcLJEcm MR7KOWfbXWsV5VdRHHiZH2m scr7FAG5HAscXRJkNyJ8OGA wyYAzZHNfjSezCVtxo196XU H2TzSpZSOjreVvrPddeH2gP vCuTIXTgP3aPTMhHTVmca4= GROSS DESCRIPTION m8vbsXAhVBSplLY5ZjHcVCM (test code = nx3tsb7KorLLwkMGuZMbicC [id number]) JfxnPboy26eKM7dO78FP8kO RKnIoP2UWRywpI6Egd7ISQt EHLsiWCsI841y3lho6znbzT vhES5tOzoZTIxnmakJcR0DY swEACkonsvKEd0AYstFGSiy KC4FOZcaRXmN5ScLNSwMO0b xcv8DDI2IPsyCRTpIbG8ULA kcRAoAJCnkNqlEYorn252XY T4RjZkJRFvfjY6FObpXQPlH 1WgY6EeXEuvLLR1OFJoUBDi BNQeYRAmZDEqMTsifbF8g8p aOSQzeVYaIBH6YXenrMAyAP PuITOfTUzsGtBQSaMdYaX1G IplJJUfKxD7FDn7OYGVKlZr TxNeOxW6BzN6BrMyWCs6VNm 3MXzEUgK7AMO5ULV5LdeeTT EeQyGhDGw1ZJYlLKslzKDcS HAxCQZdXMvbPHetY85ssOjb uT9iLzHfSWZAXyTWeC4vKUE oLlxwYXJcZnMyMCBSZWNlaX HlUOWanhRlo7BiZCgqevBjS UHmgOItFDTiZBYaPIWjGI74 I5UvdtUlYBtiJSMlUTVgqI1 pDA17fKIyczSmeeBwKdTdlt VjRHxfB3LclYAcS8JopYicZ OmlGGTaAwKzOWY6MHTwCME3 GOZmADKmhWU9ak6glWRioFK uFCPwsxZoq20oh9Ckk5OsmI FufJR6gAOwQXOoUcXjRCLoa IYjjC3jGUWwx4OokBkeFOpf zoXiHCADqJTdy1Bat1ZpLYi gNCQtji1koX8bZLLmsZ7suH ynAQ8iAOl8mSYiIF8qZp8xE MWjEAOvzYLoeE4dvwTmtiDl aYQxZKRznE8nviI3QCYgBOP raCQzIYAzbnxqRVMmS9CehR ptRXQ6wDuzzIG1e6JnRW65Y 13pQUI9xMG9BACly7YbBRdj KQ5ecl3igAQstOwpvTFff6n geh1iYP5pULDov8NeRDKyGN qao7xnneEfRRPfTZzyEY22s WZpZWQuICBSZXByZXNlbnRh zRi4ZBCiDBP3hF8zgsImcfP mh5UqkLl4jESbOObmSYYaWU FaGulnaH5rJJnvlyQkTDbcK XIgQXJndWVsbGVzLCBQQSwg XLZoYNMRM7Atk4larNndz4X ffTUcPW02XORooIUtYUA2UR 9jwUqzFTM0 MICROSCOPIC z3idsFIxEUTtqEP2StDyBWD DESCRIPTION (test code lf0ssa4ZelUDkiNAtHNlyzR = 3371) VgcwIapj98wOY4cT02JY5vS OFpNbS4IXNczoJ8Lqu5BMYn FGEhqPRyQ751i4oit2ufsoN ckNS5tRqfBHHxrkjkTeZ6IQ bzLCFnyoprGDt7YMhzFGSjx IV4PDIphWTdE5SsACPzER7g qit2VMM8UHucWNOeZkT8PBL efXMpXPXlaPexWXfvb728OZ H1HyQnGATizzIimNjlyW0iQ pSpFHZUkvZjcBxypEBdN7Qv xYKplqOiYO0rCPQld95kHWh ryKXunCxcETmnzDR5UQOiVR ByDTgxTLrmtNdzl6sjAJ4xO G3sxRqhwjDjH0ulbXEhs4Ra az3lNe5uLMYegGShDwZymVH bPB1iJ7Bcr5LjJS0je29oTZ GgAVDrNOLkQT8vSONmmAYfg sPgb0FsxQ7hCeXuOPRsyu2= Gross assessment was [facility] performed at ([facility], code = 2777) Department of Pathology, [address] [place] [address], Technical component [facility] was performed at ([facility], code = 2778) Department of Pathology, [address] [place] [address], Professional component [facility] was performed at ([facility], code = 2779) Department of Pathology, [address] [place] [address], [facility] Hospital[facility] [id number] 14:57:34Surgical Pathology Report Case: [id number] Authorizing Provider: Jose Antonio Martínez Collected: 06/20/2022 11:46 AM MD Froilan Ordering Location: [facility] PERIOPERATIVE Received: 06/20/2022 01:27 PM SERVICES Pathologist: Veronica Mccoy MD Specimen: Stomach, PARTIAL GASTRECTOMY A. STOMACH, PARTIAL GASTRECTOMY: -OXYNTIC MUCOSA WITH NO SIGNIFICANT PATHOLOGIC ALTERATION -NEGATIVE FOR HELICOBACTER MICROOR GANISMS ON ROUTINE STAINS Signing Pathologist Direct Phone Line: [phone] signed by Veronica Mccoy MD on 07/03/2022 at 2:57 [id number] obesity,Body mass index 40.0-44.9, adult,Essential hypertension, malignantStomachA. [...] rugal folds. No discrete lesions are identified. Housing Coordinator sections are submitted in A1-A2.NITHYA Villalta, HT (ASCP)No significant inflammation, intestinal metaplasia, dysplasia or malignancy is seen. No Helicobacter microorganisms are seen on routine stains. [facility], Department of Pathology, [address] [place] [address], [facility] of [facility], [address] [place] [address], [facility], Department of Pathology, [address] [place] [address], Njekrdvbkh w/Microscopic + Reflex to [id number] 12:36:01 Test Item Value Reference Range Interpretation Comments Color, UA (test code Light Yellow = 5778-6) Clarity, UA (test Clear code = 5767-9) Specific [place], UA 1.014 1.001-1.035 (test code = 5811-5) pH, UA (test code = 6.5 5.0-8.0 5803-2) Protein, UA (test 10 mg/dL Negative A code = 28087-8) Glucose, UA (test Negative Negative code = 365) Ketones, UA (test 60 mg/dL Negative A code = 2514-8) Bilirubin, UA (test Negative Negative code = 23795-7) Blood, UA (test code Negative Negative = 19484-7) Nitrite, UA (test Negative Negative code = 5802-4) Leukocytes, UA (test Negative Negative code = 5799-2) Urobilinogen, UA 0.2 0.2-1.0 (test code = 58094-7) RBC, UA (test code = 0 See_Comment [Autom ated 06650-8) message] The system which generated this result [...] . Bacteria, UA (test Rare code = 98359-9) Mucus (test code = Rare 8247-9) Squam Epithel, UA 5 See_Comment [Automate d (test code = 03180-3) messag e] The system which generated this result transmit svetlana reference range : /HPF. The reference range was not used to interpret this result as normal/abnormal . Specimen Source (test code = 2795) PEYTON (test code = PEYTON) Storage Battery Inspector And Tester ID - [auto] Lab Interpretation Abnormal (test code = 46096-1) [facility] REFLEX URINE [id number] 12:36:01 Test Item Value Reference Range Interpretation [...] = 516) SOURCE(BEAKER) (test code = 2795) Storage Battery Inspector And Tester ID - [auto]POC-Glucose [id number] 05:47:52 Test Item Value Reference Range Interpretation Comments POC-Glucose Meter (test 133 mg/dL 70-110 H : TE STED AT [facility] code = 1538) [address] [facility], 770 30: Storage Battery Inspector And Tester/Techni sandy ID = [id number] for SUSAN, VERONIC A Lab Interpretation (test Abnormal code = 57620-8) [facility] HospitalPOCT-GLUCOSE [id number] 05:47:52 Test Item Value Reference Range Interpretation Comments POC-GLUCOSE METER 133 mg/dL 70-110 H : TESTED A T [facility] 6720 (BEAKER) (test code = [facility], 153) [address]: Storage Battery Inspector And Tester/Techni sandy ID = [id number] for DA MASON, RAS POCT-GLUCOSE [id number] 00:31:43 Test Item Value Reference Range Interpretation Comments POC-GLUCOSE METER 151 mg/dL 70-110 H : TESTED A T [facility] 6720 (BEAKER) (test code = [facility], 153) 25980: Storage Battery Inspector And Tester/Techni sandy ID = [id number] for DA MASON, RAS POCT-GLUCOSE [id number] 18:02:33 Test Item Value Reference Range Interpretation Comments POC-GLUCOSE METER 197 mg/dL 70-110 H : TESTED A T [facility] 6720 (BEAKER) (test code = [facility], 153) [address]: Storage Battery Inspector And Tester/Techni sandy ID = [id number] for Ak ens, Chellsi POCT-GLUCOSE [id number] 06:47:36 Test Item Value Reference Range Interpretation Comments POC-GLUCOSE METER 118 mg/dL 70-110 H : TESTED A T [facility] 6720 (BEAKER) (test code = [facility], 153) 59973: Storage Battery Inspector And Tester/Techni sandy ID = [id number] for ED WARDS, VICKI POCT , [id number] 06:25:00 Test Item Value Reference Range Interpretation Comments Test Urine, POC (test code Negative = 4316360) Control line present?, POC (test Yes code = 2225465) Background clear?, POC (test code = Yes 9557130) UPT Cassette Lot #, POC (test code = 9044178 0910984) UPT Cassette Expiration Date, POC 8708051 (test code = 7918263) [facility] , [id number] 06:25:00 Test Item Value Reference Range Interpretation Comments Test Urine, POC (test code Negative = 3241819) Control line present?, POC (test Yes code = 5284730) Background clear?, POC (test code = Yes 7965023) UPT Cassette Lot #, POC (test code = 0634191 4469375) UPT Cassette Expiration Date, POC 5502167 (test code = 5377230) [facility] , [id number] 06:25:00 Test Item Value Reference Range Interpretation Comments Test Urine, POC (test code Negative = 6986078) Control line present?, POC (test Yes code = 6007150) Background clear?, POC (test code = Yes 3842550) UPT Cassette Lot #, POC (test code = 0237773 9723296) UPT Cassette Expiration Date, POC 2202280 (test code = 0340615) [facility] , [id number] 06:25:00 Test Item Value Reference Range Interpretation Comments Test Urine, POC (test code Negative = 7148723) Control line present?, POC (test Yes code = 0957919) Background clear?, POC (test code = Yes 0198814) UPT Cassette Lot #, POC (test code = 8940861 1055039) UPT Cassette Expiration Date, POC 2791255 (test code = 8060225) [facility] , [id number] 06:25:00 Test Item Value Reference Range Interpretation Comments Test Urine, POC (test code Negative = 5571280) Control line present?, POC (test Yes code = 9951209) Background clear?, POC (test code = Yes 1720890) UPT Cassette Lot #, POC (test code = 5865299 9971750) UPT Cassette Expiration Date, POC 43010728 (test code = 0892468) [facility] HospitalRAD, CHEST, 1 VIEW, NON [id number] 20:08:00Reason for exam:->CHEMICAL EXPOSUREperfect US materhorn whiteShould this be performed at the bedside?->No [facility] : 1980 Sex: FFINAL [...] focal pneumonia or pulmonary edema. Signed: Michelle Alvaraod MDReport Verified Date/Time: 06/19/2022 20:08:46 Electronically signedby: MICHELLE ALVARADO MD on 06/19/2022 08:08 PMBUN AND CREATININE W/[id number] 14:39:37 Test Item Value Reference Range Interpretation Comments BLOOD UREA 23 mg/dL 7-21 H NITROGEN (BEAKER) (test code = 354) CREATININE 0.76 mg/dL 0.57-1.25 (BEAKER) (test code = 358) BUN/CREAT RATIO 30 For a normal individual on (BEAKER) (test a normal diet , the code = reference inter sneha for the 3881678237) mass ratio rang es between 12:1 and [...] not appl icable for dialysis patien ts Storage Battery Inspector And Tester ID - [id number] 14:39:35 Test Item Value Reference Range Interpretation Comments SODIUM (BEAKER) (test code = 381) 136 meq/L 136-145 POTASSIUM (BEAKER) (test code = 3.8 meq/L 3.5-5.1 379) CHLORIDE (BEAKER) (test code = 382) 108 meq/L 98-107 H CO2 (BEAKER) (test code = 355) 21 meq/L 22-29 L Storage Battery Inspector And Tester ID - [id number] 13:43:25 Test Item Value Reference Range Interpretation Comments HEMOGLOBIN (BEAKER) (test code = 13.1 GM/DL 11.2-15.7 410) Storage Battery Inspector And Tester ID - [id number] 09:17:18 Test Item Value Reference Range Interpretation Comments Scan Result (test code = See scanned report [id number]) PEYTON (test code = PEYTON) See scanned report [facility]2022-09-27 09:17:18 Test Item Value Reference Range Interpretation Comments Scan Result (test code = See scanned report [id number]) PEYTON (test code = PEYTON) See scanned report [facility]2022-09-27 09:17:18 Test Item Value Reference Range Interpretation Comments Scan Result (test code = See scanned report [id number]) PEYTON (test code = PYETON) See scanned report [facility]2022-09-27 09:17:18 Test Item Value Reference Range Interpretation Comments Scan Result (test code = See scanned report [id number]) PEYTON (test code = PEYTON) See scanned report [facility] 09:17:18 Test Item Value Reference Range Interpretation Comments Scan Result (test code = See scanned report [id number]) PEYTON (test code = PEYTON) See scanned report [facility] HospitalMISCELL[facility]OUS LAB [id number] 09:17:18 Test Item Value Reference Range Interpretation Comments SCAN RESULT (test code = See scanned report [id number]) See scanned reportRAD, SHOULDER, COMPLETE (MIN 2 VIEWS), [id number] 15:24:00Reason for exam:->right shoulder pain [facility] : 1980 Sex: FFINAL REPORT Exam: RAD, SHOULDER, COMPLETE (MIN 2 VIEWS), RIGHTDate: 03/17/2022 3:23 PM Indication:right shoulder painComparison: None DISCUSSION/IMPRESSION: AP internal/external views of the right shoulder was obtained. Osseous structures appear well mineralized.Osseous structuresappear intact.Joint spaces are grossly preserved.Soft tissues are within normal limits.No radiopaqueforeign bodies. Signed: Alexandru Azar MDReport Verified Date/Time: 03/17/2022 15:24:31 Reading Location: [facility] C013X [facility] Consult Reading Room , BRAIN, [id number] 13:30:00Unlisted Reason for Exam - Click Yes and Enter Reason Below->No [facility] : 1980 Sex: FFINAL [...] intracranial hemorrhage, or mass. Signed: Bang Rodriguez [facility] Verified Date/Time: 03/17/2022 13:30:05 MR, SPINE, CERVICAL, [id number] 07:16:00Unlisted Reason for Exam - Click Yes and Enter Reason Below->No[facility] : 1980 Sex: FFINAL [...] Rodriguez MDReport Verified Date/Time: 03/17/2022 07:16:46 VITAMIN [id number] 13:00:00 Test Item Value Reference Range Interpretation Comments VITAMIN B-12 343 pg/mL 200-1100 Please Note: A lthough the (test code = reference range for klzcrexL47 2132-9) is 200-1100 pg/ mL, it has been reported that b etween5 and 10% of patients wit h values between 200 and 400pg/mL may experience neur opsychiatric and hematologic abnormalities due to occult B 12 deficiency; less than 1%of patients with values above 40 0 pg/mL will have symptoms. Performed at: [facility] [employer] [facility] [address] [address] MIGUELITO DIAZ MD [facility] HospitalPYRUVIC [id number] 13:00:00 Test Item Value Reference Range Interpretation Comments PYRUVIC ACID (test 0.75 mg/dL 0.30-1.50 Performed at: AMD code = 2905-8) [facility] [address] [place] [address] PATR JAY REINOSO MD,PHD [facility] HospitalURINALYSIS W/ REFLEX URINE [id number] 18:29:33 Test Item Value Reference Range Interpretation [...] = 1521) SOURCE(BEAKER) (test code = 2795) Storage Battery Inspector And Tester ID - [auto]Storage Battery Inspector And Tester ID - techPROTEIN ELECTROPHORESIS, SERUM WITH REFLEX TO [id number] 14:31:04 Test Item Value Reference Range Interpretation [...] electrophoretic (BEAKER) (test code pattern. = 2615) [id number] Maulik Cazares M.D. 9 (BEAKER) (test (electonic signature) code = 2616) PROTEIN TOTAL 6.0 gm/dL 6.0-8.3 SERUM, SPEP (BEAKER) (test code = 2660) Clinical Freelance Interpreter/Translator - SFOperator ID - BSOperator ID - ADMIMMUNOFIXATION + PROTEIN ELECTROPHORESIS - [id number] 08:00:00 Test Item Value Reference Range Interpretation Comments PROTEIN TOTAL (test code 6.9 g/dL 6.1-8.1 = 2885-2) INTERPRETATION, GINA (test N ormal pattern. No code = 04382-5) monoclonal p roteins detected. ALBUMIN ELP (test code = 4 g/dL 3.8-4.8 2862-1) ALPHA 1 (test code = 0.4 g/dL 0.2-0.3 H 2865-4) ALPHA 2 (test code = 0.9 g/dL 0.5-0.9 2868-8) BETA-1 (test code = 0.5 g/dL 0.4-0.6 49764-0) BETA-2 (test code = 0.4 g/dL 0.2-0.5 30104-9) GAMMA GLOBULIN (test code 0.9 g/dL 0.8-1.7 = 2874-6) INTERPRETATION SPE (test Al pha-1 globulin code = 88436-0) increase not ed. Performed at: [facility] [address] [place] [address] ALLYSON DIAZ MD Lab Interpretation (test Abnormal code = 60303-2) [facility] HospitalBASIC METABOLIC [id number] 05:59:37 Test Item Value Reference Range Interpretation [...] not appl icable for dialysis patien ts Storage Battery Inspector And Tester ID - BSHEPATIC FUNCTION [id number] 05:59:37 Test Item Value Reference Range Interpretation [...] Specimen slightly (test code = 347) hemolyzed Storage Battery Inspector And Tester ID - [id number] 05:59:36 Test Item Value Reference Range Interpretation Comments MAGNESIUM (BEAKER) 1.9 mg/dL 1.6-2.6 Specimen slightly (test code = 627) hemolyzed Storage Battery Inspector And Tester ID - BSVITAMIN [id number] 04:25:50 Test Item Value Reference Range Interpretation Comments VITAMIN B12 (BEAKER) (test code = 515 pg/mL 213-816 774) Storage Battery Inspector And Tester ID - ALANA MTSH/FREE T4 IF [id number] 04:25:50 Test Item Value Reference Range Interpretation Comments THYROID STIMULATING HORMONE 1.504 uIU/mL 0.350-4.940 (BEAKER) (test code = 772) Storage Battery Inspector And Tester ID - ALANA MCBC W/PLT COUNT & AUTO [id number] 03:33:10 Test Item Value Reference Range Interpretation [...] SARS-Co V-2 (test code = target nucleic 90345-2) acids are not detected in thi s [...] revoked sooner. Fact Sheet for Healthcare Providers: https://www.Email Data Source/Documents/Xp ert%20Xpress%20SAR S%20CoV-2/Fact%20S heets/302-3802%20S ARS-COV-2%20HEALTH CARE%20PROVIDERS%2 0FACT%20SHEET.pdf Fact Sheet for Healthcare Patients: https://www.Email Data Source/Documents/Xp ert%20Xpress%20SAR S%20CoV-2/Fact%20S heets/302-3801%20S ARS-COV-2%20PATIEN T%20FACT%20SHEET.p df Lab Interpretation Normal (test code = 55361-3) [facility])2022-03-14 23:41:10 Test Item Value Reference Range Interpretation Comments SARS-COV2/RT-PCR Negative Negative The SARS-Co V-2 target (test code = nucleic acids a re not 1355362) detected in thi s specimen. Negative result [...] revoked sooner. Fact Sheet for Healthcare Providers: https://www.Alytics m/Documents/Xpert%20Xpress%20SARS%20CoV-2/Fact%20Sheets/302-3802%76JNPE-WFN-1%20 HEALTHCARE%20PROVIDERS%20FACT%20SHEET.pdf Fact Sheet for Healthcare Patients: https://www.Leostream/Documents/Xpert%20Xp ress%20SARS%20CoV-2/Fact%20Sheets/302-3801%05NYOC-KHD-4%20PATIENT%20FACT%20SHEET .pdfHCG, QUANTITATIVE, [id number] 19:05:54 Test Item Value Reference Range Interpretation Comments GONADOTROPIN, CHORIONIC (HCG) QUANT < mIU/mL 0-10 (BEAKER) (test code = 649) Non- Females: <10 mIU/mL Females: Gestation Age Reference Range(mIU/mL) 0.2-1 Week 5-50 1-2 Weeks 50-500 2-3 Weeks 100-5,000 3-4 Weeks 500-10,000 4-5 Weeks 1,000-50,000 5-6 Weeks 10,000-100,000 6-8 Weeks 15,000- 200,000 2-3 Months 10,000-100,000 Storage Battery Inspector And Tester ID - BSCOMPREHENSIVE METABOLIC PANEL 2022-03-14 18:54:30 [...] not appl icable for dialysis patien ts Storage Battery Inspector And Tester ID - [id number] 18:37:27 Test Item Value Reference Range Interpretation [...] mechanical heart valves.CBC W/PLT COUNT & AUTO [id number] 18:28:24 Test Item Value Reference Range Interpretation [...] 0-1 PERCENT (BEAKER) (test code = 2801) [id number] 18:08:05 Test Item Value Reference Range Interpretation Comments PHOSPHORUS (BEAKER) 3.0 mg/dL 2.3-4.7 Specimen slightly (test code = 604) hemolyzed CT, BRAIN, WITHOUT IV [id number] 18:03:00 [facility] : 1980 Sex: FFINAL [...] reasonably achievable. FINDINGS: No intracranial hemorrhage, midline shift or mass effect. Midline structures are normally developed. Mild generalized parenchymal volume lossis present. No hydrocephalus. Orbits are within normal limits. No obstructive paranasal sinus disease. No calvarial fracture. No significant soft tissue swelling. IMPRESSION: No acute intracranial findings Signed: Bang Rodriguez MDReport Verified Date/Time: 03/07/2022 18:03:33 [id number] 17:53:23 Test Item Value Reference Range Interpretation Comments MAGNESIUM (BEAKER) 1.9 mg/dL 1.6-2.6 Specimen slightly (test code = 627) hemolyzed COMPREHENSIVE METABOLIC [id number] 17:53:17 Test Item Value Reference Range Interpretation [...] 30-44 G4 Severl y decreased 15-29 G5 Kidne y failure <15Reported eGF R is based on the CKD-EPI 2020 equation that d oes not use a race coefficientEsti mated GFR is not as accur ate as Creatinine Magui rodríguez in predicting glom erular filtration rate . Estimated GFR is not appl icable for dialysis patien ts CBC W/PLT COUNT & AUTO [id number] 17:34:47 Test Item Value Reference Range Interpretation [...] PERCENT (BEAKER) (test code = 2801) FL, [id number] 11:31:00Reason for Exam:->gastroesophageal reflux disease unspec whether eso [facility] : 1980 Sex: FFINAL [...] Healy MDReport Verified Date/Time: 01/15/2022 11:31:49 CT, [id number] 21:58:00Unlisted Reason for Exam - Click Yes and Enter Reason Below->YesUnlisted Reason for Exam->potentially UC flareIs this for enterography?->NoWill this procedure require oral contrast?->No [facility] 1980 Sex: [...] Case MDReport Verified Date/Time: 10/03/2021 21:58:27 SARS-COV2/RT-PCR ([facility])2021-10-03 21:02:26 Test Item Value Reference Range Interpretation Comments SARS-COV2/RT-PCR Negative Negative The SARS-Co V-2 target (test code = nucleic acids a re not 9044359) detected in thi s specimen. Negative result [...] revoked sooner. Fact Sheet for Healthcare Providers: https://www.Openfinance.co m/Documents/Xpert%20Xpress%20SARS%20CoV-2/Fact%20Sheets/3023802%87IPRS-IEY-0%20 HEALTHCARE%20PROVIDERS%20FACT%20SHEET.pdf Fact Sheet for Healthcare Patients: https://www.Leostream/Documents/Xpert%20Xp ress%20SARS%20CoV-2/Fact%20Sheets/3023801%66ELJM-EUG-6%20PATIENT%20FACT%20SHEET .pdfB-TYPE NATRIURETIC FACTOR (BNP)2021-10-03 21:01:58 Test Item Value Reference Range Interpretation Comments B-TYPE NATRIURETIC PEPTIDE (BEAKER) < pg/mL 0-100 (test code = 700) Storage Battery Inspector And Tester ID - BSHCG, QUANTITATIVE, [id number] 21:01:53 Test Item Value Reference Range Interpretation Comments GONADOTROPIN, CHORIONIC (HCG) QUANT < mIU/mL 0-10 (BEAKER) (test code = 649) Non- Females: <10 mIU/mL Females: Gestation Age Reference Range(mIU/mL) 0.2-1 Week 5-50 1-2 Weeks 50-500 2-3 Weeks 100-5,000 3-4 Weeks 500-10,000 4-5 Weeks 1,000-50,000 5-6 Weeks 10,000-100,000 6-8 Weeks 15,000- 200,000 2-3 Months 10,000-100,000 Storage Battery Inspector And Tester ID - BSHIGH SENSITIVITY TROPONIN I 2021-10-03 20:36:14 Test Item Value Reference Range Interpretation Comments HIGH SENSITIVITY < pg/ml See_Comment [Automated message] TROPONIN I (test code = The system which 3504243) generated this result transmitted ref erence range: <=17. Th e reference range was not used to interpr et this result as normal/abnormal . Storage Battery Inspector And Tester ID - BSThe VP PROJECT STAT High Sensitivity Troponin-I results should be used in conjunctionwith other diagnostic information such as ECG, clinical observations and information, and patient symptoms to aid in the diagnosis of [place].[id number] 20:31:56 Test Item Value Reference Range Interpretation Comments LIPASE (BEAKER) (test code = 749) 17 U/L 8-78 Storage Battery Inspector And Tester ID - [id number] 20:31:55 Test Item Value Reference Range Interpretation Comments MAGNESIUM (BEAKER) (test code = 2.0 mg/dL 1.6-2.6 627) Storage Battery Inspector And Tester ID - [id number] 20:31:55 Test Item Value Reference Range Interpretation Comments PHOSPHORUS (BEAKER) (test code = 3.2 mg/dL 2.3-4.7 604) Storage Battery Inspector And Tester ID - BSCOMPREHENSIVE METABOLIC [id number] 20:31:54 Test Item Value Reference Range Interpretation [...] S NOT APPLICABLE FOR DIALYSIS PATIEN TS. Storage Battery Inspector And Tester ID - BSLACTIC ACID, [id number] 20:28:31 Test Item Value Reference Range Interpretation Comments LACTATE BLOOD VENOUS 0.65 mmol/L 0.50-2.20 Specime n slightly (2) (BEAKER) (test hemolyzed code = 7892) Storage Battery Inspector And Tester ID - BSURINALYSIS W/ REFLEX URINE [id number] 20:21:36 Test Item Value Reference Range Interpretation [...] 1585) Rare SOURCE(BEAKER) (test code = 2795) Storage Battery Inspector And Tester ID - [auto]Storage Battery Inspector And Tester ID - techCBC W/PLT COUNT & AUTO [...] (test code = 2801) RAD, CHEST, 2 [id number] 19:36:00Reason for exam:->SHORTNESS OF BREATHReason for exam:->ABDOMINAL PAINReason for exam:->cough [facility] : 1980 Sex: FFINAL REPORT CLINICAL HISTORY: SHORTNESS OF BREATHABDOMINAL PAINcough Two viewsof the chest are submitted. COMPARISON:01/18/2016 The cardiomediastinal and hilar contours are unremarkable. There is no focal consolidation, pleural effusion, pneumothorax or evidence of overt pulmonary edema. There is no acute bony abnormality. IMPRESSION: No acute abnormality. Signed: Ashli Case Verified Date/Time: 10/03/2021 19:36:46 MR, PELVIS, WITHOUT IV [id number] 08:44:00Evaluate for sacroiliitisUnlisted Reason for Exam - Click Yes and Enter Reason Below->YesUnlistedReason for Exam->Low back pain, unspecified back pain laterality, unspecified chronicity, unspecified whether sciatica present [facility] : 1980 Sex: FFINAL [...] MDReport Verified Date/Time: 11/01/2020 08:44:21 Reading Location: [facility] Reading Room [address] [place] [address] SARS-COV2/RT-PCR ([facility])2020-07-23 08:04:00 Test Item Value Reference Range Interpretation Comments SARS-COV2/RT-PCR (test Negative Not Detected, Negative, code = 8560290) See external report for linked test SARS-COV-[address] [facility] FELICE (test code = 7104802) Negative result for this test determines that [...] the Sellers SARS-CoV-2 assay.Fact Sheet for Healthcare Providers:https://www.Link Medicine.Btiques/louis/RT_SAR B-LgW-5_YDT_Oomg_Wlvhr_14-383170.pdfFact Sheet for Healthcare Patients:https://www.Catch Resources/s al/ZS_NTNX-HsU-5_Gpbbapc_Eswa_Pxzfl_VQ_64-252618P7.pdfPerforming Laboratory:[facility] [place] [address] TISSUE [id number] 11:46:00Surgical Pathology Report Case: [id number] Authorizing Provider: Sydney Gonzalez MD Collected: 03/03/2020 02:37 PM Ordering Location: [facility] Endoscopy Received: 03/04/2020 08:23 AM Services Pathologist: Anel Rincon MD Specimens: A) - Duodenum, biopsy B) - Biopsy, Gastric, random C) - Polyp, Gastric, removed w forcep D) - Distal Esophagus, biopsy E) - Proximal Esophagus, biopsy F) - Cecum, biospy G) - Biopsy, Terminal Ileum H) - Large Intestine, Colon - Right/Ascending, biopsy I) - Large Inte zully, Colon - Transverse, biopsy J) - Large [...] MICROSCOPIC COLITIS. - NEGATIVE FOR DYSPLASIA OR MAL IGNANCY.I. COLON, TRANSVERSE, BIOPSY: - COLONIC MUCOSA WITH NO SIGNIFICANT DIAGNOSTIC ALTERATION. - NEGATIVE FOR MICROSCOPIC COLITIS. - NEGATIVE FOR DYSPLASIA OR MALIGNANCY.J. COLON, LEFT/DESCENDING, BIOPSY: - COLONIC MUCOSA WITH NO SIGNIFICANT DIAGNOSTIC ALTERATION. - NEGATIVE FOR MICROSCOPIC COLITIS. - NEGATIVE FOR DYSPLASIA OR MALIGNANCY.K. COLON, LEFT/DESCENDING, POLYPECTOMY: - SESSILE SERRATED POLYP.L. COLON, RANDOM, BIOPSY: - COLONIC MUCOSA WITH NO SIGNIFICANT DIAGNOSTIC ALTERATION. - NEGATIVEFOR MICROSCOPIC COLITIS. - NEGATIVE FOR DYSPLASIA OR MALIGNANCY.M. RECTUM, BIOPSY: - RECTAL MUCOSA WITH NO SIGNIFICANT DIAGNOSTIC ALTERATION. - NEGATIVE FOR DYSPLASIA OR MALIGNANCY. Signing [facility] Phone Line: [phone] signed by Anel Rincon MD on 03/07/2020 at 11:46 [id number], [id number] X 2Screening for viral disease, ulcerative proctitis with rectal bleeding.A. Duodenum B.Gastric biopsy C. Gastric polypD. Distal esophagusE. Proximal esophagusF. CecumG. Tympanic membrane biopsy H. Right/ascending colon I. Transverse colon J. Left/descending colon K. Left/descending colonpolyp L. Sigmoid colonM. Rectum A. Received in formalin labeled with the patient's name, accession number and "duodenum" are four webster-pink tissue fragments measuring up to 0.3 cm in greatest dimension, which are filtered and submitted in toto in A1.B. Received in formalin labeled with the patient's name, accession number and "gastric biopsy" are two webster-pink tissue fragments measuring up to 0.3 cm ingreatest dimension, which is filtered and submitted in [...] dimension, which are filtered and submitted in totoin E1.F. Received in formalin labeled with the [...] three webster- pink tissue fragments measuring up to0.3 cm in greatest dimension, which are filtered and submitted in toto in H1.I. Received in formalinlabeled with the patient's name, accession number and "transverse colon" are multiple webster-pink tissue fragments measuring up to 0.3 cm in greatest dimension, which are filtered and submitted in toto inI1.J. Received in formalin labeled with the patient's name, accession number and "left/descending colon" are two webster-pink tissue fragments measuring up to 0.3 cm in greatest dimension, which are filtere d and submitted in toto in J1.E. Received [...] of this case included the use of immunoh istochemistry or special stains.Control Slides Examined: In-house known positive controls were evaluated along with the test tissue. These control slides run alongside of the patients sample show appropriate staining. Internal positive and negative controls when available are evaluated Immunohistochemistry technical testing was performed at [facility], Pathology Laboratory whereit was developed and its performance characteristics were [...] qualified to perform high complexity clinical laboratory testing.[facility], Department of Pathology, [address] [place] [address], [facility], [facility] of [facility], [address] [place] [address], [facility]rczS[facility], Department of Pathology, [address] [place] [address], Yuanf 2 [id number] 05:43:51 No acute intrathoracic abnormality. Preliminary Report [...] intrathoracic abnormality.Preliminary Report Dictated by Resident: Casa Roman, MD., have reviewed this study and agree with the abovereport.[facility] HospitalD-[id number] 04:42:00 Test Item Value Reference Interpretation Comments Range D-DIMER (test code = See_Comment H [Autom ated [id number]) message] The system which generated this result [...] diagnosis. Lab Interpretation Abnormal (test code = 35415-4) [facility] (ID NOW RAPID TESTING)2019-12-22 04:20:00 Test Item Value Reference Range Interpretation Comments SARS-CoV-2 Rapid ID NOW Not Detected Not Detected (test code = 69090-2) PEYTON (test code = PEYTON) ID NOW COVID-19 Assay is an isothermal nucleic acid amplification test intended for the qualitative detection of nucleic acid from SARS-CoV-2 viral RNA in nasopharyngeal ([employer]) specimens. It is used under Emergency Use [...] indicated. Lab Interpretation Normal (test code = 61717-4) [facility] Metabolic Panel (NA, K, CL, CO2, GLUCOSE, BUN, CREATININE, CA)2019-12-22 04:17:00 Test Item Value Reference Range Interpretation Comments NA (test code = 138 mmol/L 135-145 7249750089) K (test code = 5.3 mmol/L 3.5-5 H Slight 6083484955) hemolysis CL (test code = 106 mmol/L 98-108 1004486493) CO2 TOTAL (test code 23 mmol/L 23-31 = 6650010243) AGAP (test code = 2-16 1880180558) BUN (test code = 23 mg/dL 7-23 Slight 2934814841) hemolysis GLUCOSE (test code = 100 mg/dL 70-110 7487545196) CREATININE (test code 0.95 mg/dL 0.5-1.04 = 2897109666) CALCIUM (test code = 9.2 mg/dL 8.6-10.6 7887189059) eGFR Calculation mL/min/1.73m2 (Non-) (test code = 3535750754) eGFR Calculation mL/min/1.73m2 () (test code = 0514009747) PEYTON (test code = PEYTON) Association of [...] tests). Lab Interpretation Abnormal (test code = 21755-0) [facility] (ALB, T.PRO, BILI T, BU/BC, ALT, AST, ALK PHOS)2019-12-22 04:17:00 Test Item Value Reference Range Interpretation Comments TOTAL BILI (test code = 0.6 mg/dL 0.1-1.5 0704429700) BILI UNCON (test code = 0.5 mg/dL 0.1-1.6 0581550120) BILI CONJ (test code = 0.0 mg/dL 0-0.3 4110941207) T PROTEIN (test code = 8.1 g/dL 6.3-8.2 7484215790) ALBUMIN (test code = 4.4 g/dL 3.5-5 9855538748) ALK PHOS (test code = 80 U/L 34-122 Slight hemolysis 0898074917) ALTv (test code = 1742-6) 25 U/L 5-35 AST(SGOT) (test code = 38 U/L 13-40 Sligh t hemolysis 7769922756) Lab Interpretation (test Normal code = 65893-5) [facility] HospitalTroponin [id number] 04:17:00 Test Item Value Reference Range Interpretation Comments TROPONIN I (test <0.012 See_Comment [Automated code = 4365250044) message] The system which generated this result [...] ? Lab Interpretation Normal (test code = 14385-1) [facility] HospitalN-TERMINAL [id number] 04:17:00 Test Item Value Reference Range Interpretation Comments NT-proBNP (test code 201 pg/mL See_Comment H [Autom ated = 7684091745) message] The system which generated this result transmitted reference range : <=125. The reference range was not used to interpret this result as normal/abnormal . PEYTON (test code = PEYTON) Biotin has been reported to cause a negative bias, interpret results relative to patient's use of biotin. Lab Interpretation Abnormal (test code = 69416-6) [facility] HospitalUrinalysis2020-06-30 04:01:00 Test Item Value Reference Range Interpretation Comments APPEARANCE (test code = Hazy Clear A 5666524794) COLOR (test code = Yellow Yellow 0694466725) PH (test code = 4.8-8.0 8472591592) SP GRAVITY (test code = 1.003-1.030 7835751650) GLU U QUAL (test code = Normal Normal 3561502685) BLOOD (test code = 2+ Negative A 7144103510) KETONES (test code = Negative Negative 5227751867) PROTEIN (test code = Negative Negative 2887-8) UROBILIN (test code = Normal Normal 5978000007) BILIRUBIN (test code = Negative Negative 4814287943) NITRITE (test code = Negative Negative 1029194378) LEUK SOLOMON (test code = Negative Negative 9654109243) RBC/HPF (test code = See_Comment H [Autom ated message] 5273874407) The system [employer] generated this result transmitted ref erence range: 0 - 3 HP F. The reference range was not used to int erpret this result as normal/abnormal . WBC/HPF (test code = See_Comment [Autom ated message] 9619507114) The system [employer] h generated this result transmitted ref erence range: 0 - 5 HP F. The reference range was not used to int erpret this result as normal/abnormal . BACTERIA (test code = Few Negative A 1533710515) MUCOUS (test code = Slight Negative LPF A 5607268985) SQ EPITH (test code = HPF 4781244424) Lab Interpretation (test Abnormal code = 63647-3) [facility] WITH [id number] 03:54:00 Test Item Value Reference Range Interpretation [...] RDW-SD (test code = 42.8 fL 39-49.9 43832-6) RDW-CV (test code = 13.1 % 12-15.5 788-0) PLT (test code = See_Comment [Automated 777-3) message] The sy stem which generated this result transmitted reference range : 166 - 358 10*3/ ?L. The reference r skye was not used to interpret this result as normal/abnormal . MPV (test code = 9.4 fL 9.5-12.9 L 32869-0) NRBC/100 WBC (test See_Comment [Automat ed code = 9448401533) message] The system which generated this result transmitted reference range : 0.0 - 10.0 /100 WBCs. The refer ence range was not u sed to interpret th is result as normal/abnormal . NRBC x10^3 (test code <0.01 See_Comment [Auto mated = 4159417522) message] The s ystem which generated this result transmitted reference range : 10*3/?L. The reference range was not used to interpret this result as normal/abnormal . GRAN MAT (NEUT) % 59.8 % (test code = 770-8) IMM GRAN % (test code 0.50 % = 4979414029) LYMPH % (test code = 30.8 % 736-9) MONO % (test code = 7.9 % 5905-5) EOS % (test code = 0.4 % 713-8) BASO % (test code = 0.6 % 706-2) GRAN MAT x10^3(ANC) 6.50 10*3/uL 1.88-7.09 (test code = 4448523845) IMM GRAN x10^3 (test 0.05 10*3/uL 0-0.06 code = 1714378563) LYMPH x10^3 (test code 3.34 10*3/uL 1.32-3.29 H = 731-0) MONO x10^3 (test code 0.86 10*3/uL 0.33-0.92 = 742-7) EOS x10^3 (test code = 0.04 10*3/uL 0.03-0.39 711-2) BASO x10^3 (test code 0.06 10*3/uL 0.01-0.07 = 704-7) Lab Interpretation Abnormal (test code = 13571-0) [facility] [id number] 03:21:00 Test Item Value Reference Range Interpretation Comments POCT PREG (test code = 1605) negative On board controls acceptable with yes C Line (test code = 3574) POCT PREG LOT # (test code = 3575) [id number] POCT PREG TEST DATE (test 01/21/2021 code = 3576) Lab Interpretation (test code = Normal 52154-6) [facility] HospitalXR [facility] 2 VW [id number] 18:46:31 Mild hip osteoarthrosis No acute osseous abnormality. EXAM: XR HIPS 2 VW RIGHT HISTORY: 39 years-old Female pain with movement COMPARISON: None. FINDINGS: No acute fracture or dislocation. mild hip joint space narrowing andsuperior acetabular sclerosis with marginal osteophytes are noted. No softtissue abnormality is seen. Nmmb, Radiant Results Inft User - 08/20/2019 12:47 PM CSTEXAM: XR HIPS 2 VW RIGHTHISTORY: 39 years-old Female pain with movement COMPARISON: None.FINDINGS:No acute fracture or dislocation. mild hip joint space narrowing andsuperior acetabular sclerosis with marginal osteophytes are noted. No softtissue abnormality is seen.IMPRESSIONMild hip osteoarthrosisNo acute osseous abnormality.[facility] HospitalPost Op Promis 29 [id number] 13:33:12 Test Item Value Reference Range Interpretation Comments Pain Interference: (test code = Pain 73.7 1 N Interference:) Pain Intensity: (test code = Pain 53.7 1 N Intensity:) Physical Function: (test code = 21.3 1 N Physical Function:) Satisfaction Role: (test code = 35.6 1 N Satisfaction Role:) [facility] Shoulder wo contrast [id number] 11:13:00PROCEDURE INFORMATION:Exam: MR Right Upper Extremity Joint [...] the proximalhumerus.Meliton Rush MD On 04/24/2019 13:45:44; [id number] by: Meliton Rush MDDictated Date/time: 04/24/19 13:45Electronically Signed by: Meliton Rush MD 04/24/1913:45FINAL REPORTUT Physicians[[facility]] CULTURE, URINE, [id number] 12:00:00 Test Item Value Reference Range Interpretation Comments CULTURE (test code = See Comment CULTURE , URINE, CULTURE) ROUTINE MICRO N UMBER: [id number] TEST S TATUS: FINAL SPECIMEN SOURCE: URINE, CLEAN CA TCH SPECIMEN QUALIT Y: ADEQUATE RESULT : Multiple organi sms present, each l ess than 10,000 CFU /mL. These organisms , commonly found on external and in ternal genitalia, are considered to b e colonizers. No further testing perform ed. [facility][Q] DRUG SCREEN,COMPREHENSIVE (URINE)2019-02-11 14:49:00 Test Item Value [...] FOR SPECIFICS ONWHICH DRUGS A RE TESTED. [facility] Abdomen Doppler [id number] 11:02:00Patient Name: TODD GASPAROB: 1980; Age: 38 years y/o FemaleMR: [id number] ULTRASOUND with Doppler studiesHistory: splenomegaly Technique: The [...] nephrectomy.3. Normal Doppler studies as described above.SL: [id number]--Wuhi by: Kwaku Hedrick MDDictated Date/time: 02/10/19 15:13Ele ctronically Signed by: Kwaku Hedrick MD 02/10/1915:20FINAL REPORTUT Physicians[[facility]] CALPROTECTIN, [id number] 14:43:01 Test Item Value Reference Range Interpretation Comments Calprotectin (test 30 ug/g 0-120 Concentra tion code = Calprotectin) Interpr etation Follow-Up<16 - 50 ug/g Normal None>50 -120 ug/g Borderline Re-e valuate in 4-6 weeks >120 ug/g Abnormal Repeat as clinically indicatedPerfor med At: BN [facility] [place] [address] [place], [place] [id number] ra Shanthi SANDOVAL Ph:[phone] [facility]iciansX[facility] Clavicle Bilateral [id number] 14:03:00Clinical Indication: - M89.8X1 Other specified disorders of bone, shoulder,M79.18 Myalgia, other site, M25.50 Pain in unspecified joint, M94.0 Chondrocostal junction syndrome [Tietze]; clavicle pain for 5 daysComparison: NoneTECHNIQUE: AP and axial views of the bilateral claviclesFINDINGS: No acute fracture or malalignment is identified. Thesternoclavicular joints are within normal limits as are the acromioclavicularjoints.No soft tissue abnormality is identified.IMPRESSION: No acute abnormality.SL:[id number] by: Oj Boswell MDDictated Date/time: 01/30/19 14:33Electronically Signedby: Oj Boswell MD 01/30/1914:34FINAL REPORTUT Physicians[QLH] HEPATIC FUNCTION [id number] 14:45:01 Test Item Value Reference Range Interpretation [...] of pediatric refer ence intervals to eSiemens [place] analyzer (Clinical Biochemistry 46 (2013): 4401-7466). [facility] has not internally validated these reference ranges and therefore they should be used only in e context of a thoroughcl inical assessment. AST (test code = 11 u/l 0-37 88915-6) ALT (test code = 20 u/l 0-65 1743-4) Globulin (test code 3.6 g/dl 2.7-4.2 = 20641-1) A/G Ratio (test 1.1 0.7-1.6 code = 1759-0) [facility][H] Celiac Pnl w/Rflx Endomy Ab [id number] 14:45:01 Test Item Value Reference Range Interpretation Comments IgA Lvl (test code = 2458-8) 234.0 mg/dl 68.0-378.0 Gliadin (Deamidated Peptide)IgA <0.2 <=14.9 Ab (test code = 48587-9) Gliadin (Deamidated Peptide)IgG 0.6 U/ml <=14.9 Ab (test code = 17760-6) Tissue Transglutaminase (tTG) IgA <0.5 <=14.9 (test code = 64975-7) Tissue Transglutaminase (tTg) IgG <0.8 <=14.9 (test code = 66051-5) [facility][H] LUNDBERG [id number] 14:45:01 Test Item Value Reference Range Interpretation Comments Bili Total (test code 0.5 mg/dl 0-1 = 1975-2) ALT (test code = 20 u/l 0-65 1743-4) AST (test code = 11 u/l 0-37 91463-3) Fibrosis Score (test 0.04 0.00-0.21 code = [...] Macroglob (test 224 mg/dl 110-276 code = 33142-0) Haptoglobin; Above 208 mg/dl 34-200 High Threshold (test code = 24181-3) Apolipoprotein A-1 170 mg/dl 116-209 (test code = Apolipoprotein A-1) GGT (test code = 18 {iu/l} 0-60 2324-2) Chol (test code = 137 mg/dl 655-153 9553-3) Glucose Lvl (test 96 mg/dl 65-99 Adult refe rence range code = 2345-7) values reflec t the clinical guidel inesof the [place] [employer]. Trig; Above High 182 [...] q uestions regarding this report please contact [employer] service at . Referenc es:1. Latanya Desir al. Diagnostic Valu e of Biochemical Mar kers (FibroTest) for the prediction of L iver Fibrosis in pat ients with Non-Alcoho lic Fatty Liver Dis ease. [facility] 2006; 6:6.2. Carson Bates al. The Diagnostic Valu e of Biomarkers (Remigio miko Test) for the Prediction of L iver Steatosis. Comp arative Hepatol. 2005; 4:10.3. Petra Mckeon, Suri Coyne, et al. Diagnostic valu e of biochemical mar kers (LUNDBERG TEST) for the prediction of n on alcohol steato hepatitis in pa tients with non- alcoh olic fatty liver dis ease. [facility] o[facility] 2006; 6:34 doi:10.1186/147 1-230X-6 -34.Performed A t: [facility] [address] [place], [place] [id number] susana Maki MD Ph:[phone] [facility][H] CK [id number] 10:21:01 Test Item Value Reference Range Interpretation [...] At: DA [facility] (test code = Creatine [place] [address] [employer]) [address] [place], [place] [id number] h CN MD Ph:[phone] rformed At: HD [facility] [address] [place], [place] [address]Xkmzd Kyle L MD Ph:[phone] [facility][H] Quantiferon Incubationa w/ Reflex to TB Gold [id number] 10:21:01 Test Item Value Reference Range Interpretation Comments Quantiferon Incubation Performed At: H D Incubation (test performed. [facility] code = Quantiferon [address] Incubation) [place], [place] [id number] judith Domínguez MD Ph:[phone] Quantiferon - TB Negative Negative Performed A t: BN Gold Plus (test [facility] code = Quantiferon [facility] n1447 - TB Gold Plus) [place], [place] [id number] ra Shanthi SANDOVAL Ph:[phone] [facility][H] Quantiferon Incubationa w/ Reflex to TB Gold [id number] 10:21:01 Test Item Value Reference Range Interpretation Comments Quantiferon Criteria Comment The Vasquez ntiFERON-TB (test code = Gold Plus resul t is Quantiferon determined Criteria) bysubtracting t he Nil value from [facility] TB antigen (Ag) be.The mitogen tube se [...] BN code = Mitogen - [facility] NIL) [address] [id number] ra Shanthi SANDOVAL Ph:[phone] [facility]iciansX[facility] Shoulder series [id number] 10:49:00EXAM: XR SHOULDER 3 VIEWSDATE: 01/13/2019 10:49 [...] 01/13/1913:49FINAL REPORTUT PhysiciansXRAY Spine lumbar AP lateral [id number] 10:49:00EXAM: XR LUMBAR SPINE 2 VIEWSDATE: 01/13/2019 [...] PhysiciansXRAY Spine cervical 2 or 3 view [id number] 10:49:00EXAM: XR CERVICAL SPINE 3 VIEWSDATE: 01/13/2019 [...] REPORT [facility] Knee 1-2 Views Bilateral [id number] 10:48:00EXAM: XR BILATERAL KNEE 2 VIEWSDATE: 01/13/2019 [...] bilateral w pelvis and both lat hips [id number] 10:48:00EXAM: XR BILATERAL HIP 2 VIEWS AND [...] MD 01/13/1913:37FINAL REPORTUT PhysiciansXRAY Chest 2 views [id number] 10:47:00EXAM: XR CHEST 2 VIEWSDATE: 01/13/2019 10:47 [...] 01/14/1912:50FINAL REPORTUT Physicians[QL[facility]] URINALYSIS, COMPLETE W/REFLEX TO [id number] 10:10:01 Test Item Value Reference Range Interpretation Comments UA Color (test code = 5778-6) Jhoan UA Turbidity; Abnormal (test code Marked Clear A = 28833-9) UA Spec Grav; Above High Threshold 1.032 <=1.030 (test code = 5810-7) UA pH (test code = 5803-2) 5.0 5.0-8.0 UA Protein; Abnormal (test code = 30 mg/dl Negative A 47312-9) UA Glucose (test code = 04020-7) Negative Negative UA Ketones; Abnormal (test code = Trace Negative A 36958-8) UA Bili (test code = 5770-3) Negative Negative UA Blood; Abnormal (test code = Large Negative A 5794-3) UROBILINOGEN (test code = 06958-9) <=1.0 0.1-1.0 UA Nitrite (test code = 5802-4) Negative Negative UA Leuk Est (test code = 5799-2) Negative Negative UA RBC; Above High Threshold (test 10 {/HPF} 0-2 code = 75767-1) UA WBC; Above High Threshold (test 8 {/HPF} 0-5 code = 55010-9) UA Bacteria (test code = 87592-5) Few None Seen UA Mucus; Abnormal (test code = Many None Seen A 8247-9) UA Sq Epi (test code = 65055-2) Occasional Few [facility][QH] PROTEIN, TOTAL W/CREAT, RANDOM [id number] 10:10:01 Test Item Value Reference Range Interpretation Comments U Creatinine (test 303.00 mg/dl No establ ished code = 2161-8) reference ran ge. Urine Protein Level 51.5 mg/dl No estab lished (test code = 2888-6) referen ce ranges. U Prot/Creat (test 0.17 code = 2890-2) [facility][QH] HEPATITIS B SURFACE ANTIGEN W/REFL [id number] 10:10:01 Test Item Value Reference Range Interpretation Comments Hepatitis B Surface Antigen (test Negative Negative code = 5195-3) [facility][QL] HEPATITIS C [id number] 10:10:01 Test Item Value Reference Range Interpretation Comments Hepatitis C Antibody (test code = Negative 75737-6) [facility][QH] CYCLIC CITRULLINATED PEPTIDE (CCP) AB (IGG)2019-01-13 10:10:01 Test Item Value Reference Range Interpretation Comments Cyclic Citrulline Peptide Antibody <0.5 <=2.9 (test code = 72381-9) [facility][O] Urine Dipstick (In Office)2018-12-29 16:04:00 Test Item Value Reference Range Interpretation Comments Glucose (test code = Glucose) 100 MG/dL LEUKOCYTES (test code = LARGE LEUKOCYTES) NITRITE (test code = 96469-8) POSITIVE UROBILINOGEN (test code = 4.0 E.U./dL 07838-5) PROTEIN (test code = 72125-2) >=300 MG/dL pH (test code = pH) 5.5 URINE BLOOD (test code = 41837-6) SMALL SPECIFIC GRAVITY (test code = >=1.030 2965-2) KETONES (test code = 89058-2) 15 MG/dL BILIRUBIN (test code = 00395-7) MODERATE COLOR URINE (test code = 5778-6) JHOAN APPEARANCE (test code = 5767-9) CLEAR [facility]] URINALYSIS, [id number] 15:10:01 Test Item Value Reference Range Interpretation Comments UA Turbidity; Abnormal (test code Slight Clear A = 57440-1) UA Spec Grav; Above High Threshold 1.040 <=1.030 (test code = 5810-7) UA pH (test code = 5803-2) 5.0 5.0-8.0 UA Protein; Abnormal (test code = 100 mg/dl Negative A 46086-0) UA Glucose (test code = 25557-5) Negative Negative UA Ketones (test code = 14729-0) Negative Negative UA Bili (test code = 5770-3) Negative Negative UA Blood; Abnormal (test code = Small Negative A 5794-3) UROBILINOGEN; Above High Threshold 4.0 mg/dl 0.1-1.0 (test code = 38014-0) UA Nitrite; Abnormal (test code = Positive Negative A 5802-4) UA Leuk Est (test code = 5799-2) Negative Negative UA RBC; Above High Threshold (test 27 {/HPF} 0-2 code = 45171-9) UA WBC; Above High Threshold (test 14 {/HPF} 0-5 code = 06420-1) UA Bacteria (test code = 63766-5) Occasional None Seen UA Mucus; Abnormal (test code = Moderate None Seen A 8247-9) UA Sq Epi; Abnormal (test code = Moderate Few A 67608-5) UA Color (test code = 5778-6) Jhoan [facility]] CBC (INCLUDES DIFF/PLT)2018-12-29 15:10:01 Test Item Value Reference Range Interpretation Comments WBC; Above High Threshold (test 10.8 {K/CMM} 3.7-10.4 code = 6690-2) RBC (test code = 789-8) 4.47 {M/CMM} 4.20-5.40 Hgb (test code = 718-7) 14.4 g/dl 12.0-16.0 Hct (test code = 22080-5) 42.7 % 36.0-48.0 MCV (test code = 787-2) 95.6 fL 80.0-98.0 MCH; Above High Threshold (test 32.1 pg 27.0-31.0 code = 785-6) MCHC (test code = 786-4) 33.6 g/dl 32.0-36.0 RDW (test code = 788-0) 13.7 % 11.5-14.5 Platelet (test code = 28285-6) 335 {K/CMM} 133-450 Mean Platelet Volume (test code 8.3 fL 7.4-10.4 = 31783-3) [facility][QL] [id number] 15:10:01 Test Item Value Reference Range Interpretation Comments Segmented Neutrophils (test code 64.3 % 45.0-75.0 = 11016-8) Monocytes (test code = 40613-0) 7.6 % 2.0-12.0 Lymphocytes (test code = 44717-0) 26.8 % 20.0-40.0 Eosinophils (test code = 92784-8) 0.7 % 0.0-4.0 Basophils (test code = 706-2) 0.6 % 0.0-1.0 Segs-Bands # (test code = 6.9 {K/CMM} 1.5-8.1 69034-0) Lymphocytes # (test code = 2.9 {K/CMM} 1.0-5.5 62054-0) Monocytes # (test code = 27181-6) 0.8 {K/CMM} 0.0-0.8 Eosinophils # (test code = 0.1 {K/CMM} 0.0-0.5 10625-7) Basophils # (test code = 93985-3) 0.1 {K/CMM} 0.0-0.2 [facility][Q] HIV AB, HIV 1/2, EIA, WITH [id number] 15:10:01 Test Item Value Reference Range Interpretation Comments HIV Ag/Ab 4th Gen Negative Negative HIV test r esults should be (test code = considered posi tive only 75195-1) when both the s creening andthe confirma tory tests are positive. A negative confirmatory te st in patientswith a positive screening test does not exclude HIV inf ection. If clincallywarran svetlana, an HIV RNA quantitativ e test should be order ed. [facility][QL] CMP [id number] 15:10:01 Test Item Value Reference Range Interpretation Comments Sodium Level 143 {mEq/l} 135-145 (test code = 2951-2) Potassium Level 4.2 {mEq/l} 3.5-5.1 (test code = 2823-3) Chloride Level 107 {mEq/l} 95-109 (test code = 2074-0) Carbon Dioxide 25 {mEq/l} 24-32 (test code = 2027-9) AGAP (test code = 15.2 {mEq/l} 10.0-20.0 32381-1) Glucose Lvl; 106 mg/dl 70-99 Adult reference range Above High values reflect the Threshold (test clinical magali delinesof the code = 2345-7) [employer]. Creatinine Lvl 1.10 mg/dl 0.50-1.40 (test code = 2160-0) Blood Urea 21 mg/dl 7-22 Nitrogen (test code = 3094-0) BUN/Creatinine 19 6-25 Ratio (test code = 3097-3) Total Protein 7.1 g/dl 6.4-8.4 (test code = 2885-2) Albumin Lvl (test 3.7 g/dl 3.5-5.0 code = 1751-7) Globulin (test 3.4 g/dl 2.7-4.2 code = 69292-4) A/G Ratio (test 1.1 0.7-1.6 code = 1759-0) Calcium Level 9.3 mg/dl 8.5-10.5 Total (test code = 94051-8) ALT (test code = 47 u/l 0-65 1743-4) AST (test code = 18 u/l 0-37 50848-1) Alk Phos (test 56 u/l 39-136 code = 1783-0) Bili Total (test 0.3 mg/dl 0.2-1.3 code = 1974-) eGFR (test code = 64 The eGFR i s calculated 69863-7) {ML/MIN/1.7} using the CKD-E PI formula. In [...] be multiplied by t he estimated BMI. [facility][QH] LIPID PANEL WITH REFLEX TO DIRECT [id number] 15:10:01 Test Item Value Reference Range Interpretation Comments LDL (test code = 26153-3) 36 mg/dl <=99 Chol (test code = 2093-3) 124 mg/dl <=199 Trig; Above High Threshold (test 223 mg/dl <=149 code = 2571-8) HDL Cholesterol; Below Low 43 mg/dl >=61 Threshold (test code = 2085-9) CHD Risk; Below Low Threshold (test 2.88 3.90-5.80 code = 84997-3) VLDL (test code = VLDL) 45 [facility][QLH] TSH, 3RD GENERATION W/REFLEX TO [id number] 15:10:01 Test Item Value Reference Range Interpretation Comments TSH (test code = 88774-1) 2.550 {uIU/ml} 0.360-3.740 [facility][H] CRP, hs, Cardiac [id number] 15:10:01 Test Item Value Reference Range Interpretation Comments C-Reactive Protein High 25.9 mg/L Low Risk: <1.0 Sensitivity (test code = mg/ LAverage Risk: 88735-5) 1.0 - 3.0 mg/LH igh Risk: >3.0 mg/LInflammatio n: >10.0 mg/L [facility][QLH] SED RATE BY MODIFIED [id number] 15:10:01 Test Item Value Reference Range Interpretation Comments Sedimentation Rate (test code = 17 {mm/hr} 0-20 62821-5) [facility][QLH] HEMOGLOBIN [id number] 15:10:01 Test Item Value Reference Range Interpretation Comments Hemoglobin A1c; Above High Threshold 5.7 % <=5.6 (test code = 4548-4) [facility][QLH] WARREN PANEL, [id number] 15:10:01 Test Item Value Reference Range Interpretation Comments Antinuclear Antibody Negative Negative Because the WARREN was Screen (test code = Negative , the Reflex 39857-1) assays for Anti-dsDNA, SM/ [employer], Deb/La (SSA/S SB) were not perfor med. [facility]
[2022-07-27 06:23] LABS: Hematocrit 40.9 % (36.0-45.0); MCV 96.4 fL (80-100); MPV 8.3 fL (7.6-11.3); RBC Red Blood Cell Count 4.24 M/uL (3.86-4.86)
[2022-07-27 06:47] LABS: Urine Blood 2+ (Negative); Urine Glucose Negative (Negative); Urine Protein Negative (Negative); Urine pH 6.5 (5.0-7.0)
[2022-07-27 06:51] LABS: ALT/SGPT 26 U/L (13-56); AST/SGOT 19 U/L (15-37); Albumin 4.4 g/dL (3.4-5.0); Alkaline Phosphatase 62 U/L (45-117); BUN Blood Urea Nitrogen 14 mg/dL (7-18); Bicarbonate 23 mmol/L (21-32); Bilirubin Total 0.7 mg/dL (0.2-1.0); Glomerular Filtration Rate 107 ml/min (=/>90); Glucose Level 124 mg/dL (74-106); Potassium 3.5 mmol/L (3.5-5.1); Protein, Total 8.3 g/dL (6.4-8.2); Sodium Level 138 mmol/L (136-145); Troponin High Sensitivity 18.8 pg/mL (<58.9)
[2022-07-27 07:20] LABS: Barbiturates NEGATIVE (NEGATIVE); Benzodiazepines NEGATIVE (NEGATIVE); Cocaine NEGATIVE (NEGATIVE); METHAMPHETAM NEGATIVE (NEGATIVE); Methadone NEGATIVE (NEGATIVE); Opiates NEGATIVE (NEGATIVE); Phencyclidine NEGATIVE (NEGATIVE); THC Cannibis NEGATIVE (NEGATIVE)
--- NOTE | 2022-07-27 08:22 | RAD REPORT ---
EXAM DESCRIPTION: CT - Chest For Pe Angio - 07/27/2022 7:43 am CLINICAL HISTORY: Chest pain. chest pain COMPARISON: Chest For Pe Angio dated 07/07/2022; Abdomen Pelvis Wo Contrast dated 07/07/2022 TECHNIQUE: CT angiogram of the pulmonary arteries was performed with MIP. All CT scans are performed using dose optimization technique as appropriate and may include automated exposure control or mA/KV adjustment according to patient size. FINDINGS: No evidence of pulmonary thromboembolism. No acute aortic finding demonstrated. The lungs are clear. No significant pericardial or pleural fluid. No concerning bony finding. Previously noted fluid collection medial to the spleen has decreased in s ize currently measuring 4 cm. Postsurgical changes about the stomach noted. IMPRESSION: No evidence of pulmonary thromboembolism. No acute lung findings.
--- NOTE | 2022-07-27 08:23 | RAD REPORT ---
EXAM DESCRIPTION: US - Extremity Venous Uni Ltd - 07/27/2022 6:32 am CLINICAL HISTORY: PAIN Leg swelling and edema. COMPARISON: Extrem Venous W Compress Caleb dated 07/07/2022 FINDINGS: Left lower extremity venous system was interrogated with Doppler technique. Normal flow, c ompressibility and augmentation was noted. There is no DVT present. IMPRESSION: No evidence of left lower extremity deep venous thrombosis.
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
[2022-07-27] MEDS ORDERED: NA CHLORIDE 0.9% 1,000 ML ONE (08:57)
[2022-07-27 09:56] LABS: SARS-CoV-2 Antigen Rapid Res Negative (Negative)
[2022-07-27] MEDS ORDERED: DIPHENHYDRAMINE 50 MG/ML VIAL ONE (10:57)
[2022-07-27] MEDS ORDERED: HALOPERIDOL LACT 5 MG/ML INJ ONE (10:58)
[2022-07-27] MEDS ORDERED: LORazepam 2 MG/ML VIAL ONE (10:58)
[2022-07-27 11:35] LABS: Arterial Blood Carboxyhemoglob 0.6 % (0-1.5); Blood Gas Oxyhemoglobin 43.4 % (94-97); Blood O2 Saturation 44.3 % (92-98.5)
[2022-07-27 12:24] LABS: Thyroid Stimulating Hormone 2.77 uIU/mL (0.358-3.740)
[2022-07-27] MEDS ORDERED: WATER FOR INJ,STERILE 10 ML IM PRN (13:52)
[2022-07-27] MEDS ORDERED: ZIPRASIDONE MESYLA 20 MG/VIAL IM ONE ×2 (13:52→14:05)
[2022-07-27] MEDS ORDERED: WATER FOR INJ,STERILE 10 ML ONE (14:06)
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
[2022-07-27] MEDS: Ringers Lactate 1,000 ML IV SCH ×2 (18:42→21:00)
[2022-07-27] MEDS: HALOPERIDOL LACT 5 MG/ML INJ IM PRN (22:59)
[2022-07-28] MEDS ORDERED: ZIPRASIDONE MESYLA 20 MG/VIAL IM ONE (00:13)
[2022-07-28] MEDS ORDERED: WATER FOR INJ,STERILE 10 ML IM PRN (00:13)
[2022-07-28] MEDS: LORazepam 2 MG/ML VIAL ONE ×2 (02:35→02:39)
[2022-07-28] MEDS ORDERED: LORazepam 2 MG/ML VIAL IV ONE (02:38)
[2022-07-28] MEDS: Ringers Lactate 1,000 ML IV SCH ×2 (02:43→17:00)
[2022-07-28] MEDS: THIAMINE 200 MG/2 ML INJ IVP SCH (08:04)
[2022-07-28] MEDS: ENOXAPARIN 40 MG/0.4 ML SQ SCH (08:05)
[2022-07-28] MEDS: HALOPERIDOL LACT 5 MG/ML INJ IM PRN (10:21)
[2022-07-28] MEDS: FOLIC ACID 1 MG in NA CHLORIDE 0.9% 50 ML IV SCH (11:14)
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
[2022-07-28] MEDS ORDERED: propofoL 200 MG/20 ML VIAL IV ONE (13:31)
[2022-07-28] MEDS ORDERED: KETAMINE HCL 500 MG/5 ML VIAL ONE (13:45)
[2022-07-28] MEDS ORDERED: Ringers Lactate 1,000 ML IV ONE (13:45)
[2022-07-28] MEDS ORDERED: ONDANSETRON 4 MG/2 ML VIAL ONE (13:46)
[2022-07-28] MEDS ORDERED: NA CHLORIDE 0.9% 1,000 ML ONE (13:52)
--- NOTE | 2022-07-28 14:14 | P.PN ---
Date of Service: 07/28/22 Called to ICU for LP to further evaluate AMS. Performed both moderate sedation using 100mg ketamine IV as well as LP. Pt placed in left lateral decubitus position, lidocaine 3cc used, single stick at L4 space, opening pressure 47, 18 cc clear CSF drained, closing pressure 22. Tolerated both procedures well. Pt did not require O2 or breathing assistance. Kept on monitor entire time. Handed off care to Dr. Browne.
[2022-07-28 14:29] LABS: Appearance CLEAR (CLEAR); Body Fluid Source CSF; Color of fluid Colorless (COLORLESS); Fluid Total Volume 18 ml
[2022-07-28 14:37] LABS: CSF Glucose 65 mg/dL (40-70)
[2022-07-28 14:49] LABS: Body Fluid WBC 2 /mm^3
[2022-07-28 14:52] LABS: Appearance CLEAR (CLEAR); Body Fluid Source CSF; Color of fluid Colorless (COLORLESS)
[2022-07-28] MEDS ORDERED: ONDANSETRON 4 MG/2 ML VIAL IV ONE (15:00)
[2022-07-28] MEDS: ACYCLOVIR INJ 800 MG in NA CHLORIDE 0.9% 100 ML IVPB SCH ×2 (15:11→23:00)
[2022-07-28 15:15] LABS: Body Fluid WBC 0 /mm^3
[2022-07-28] MEDS ORDERED: VANCOMYCIN 2.5 GM in NA CHLORIDE 0.9% 500 ML IVPB ONE (16:00)
[2022-07-28] MEDS: METHYLPRED NA SUC 1,000 MG in NA CHLORIDE 0.9% 100 ML IV SCH (16:16)
[2022-07-28] MEDS ORDERED: AZTREONAM 2 GM in NA CHLORIDE 0.9% 100 ML IV SCH (17:00)
[2022-07-28] MEDS ORDERED: LORazepam 2 MG/ML VIAL IV PRN (21:33)
[2022-07-29] MEDS ORDERED: VANCOMYCIN 1.75 GM in NA CHLORIDE 0.9% 500 ML IVPB SCH (04:00)
[2022-07-29 04:46] LABS: Absolute Lymphocytes (CBC) 0.3 K/uL (0.7-4.9); Hematocrit 40.8 % (36.0-45.0); Lymphocytes % 5.7 % (15.3-44.8); MCV 95.9 fL (80-100); MPV 8.7 fL (7.6-11.3); RBC Red Blood Cell Count 4.25 M/uL (3.86-4.86)
[2022-07-29 05:03] LABS: Potassium 3.9 mmol/L (3.5-5.1)
[2022-07-29] MEDS: Ringers Lactate 1,000 ML IV SCH ×3 (05:36→19:38)
[2022-07-29] MEDS: FOLIC ACID 1 MG in NA CHLORIDE 0.9% 50 ML IV SCH (08:10)
[2022-07-29] MEDS: METHYLPRED NA SUC 1,000 MG in NA CHLORIDE 0.9% 100 ML IV SCH (08:10)
[2022-07-29] MEDS: ENOXAPARIN 40 MG/0.4 ML SQ SCH (08:10)
[2022-07-29] MEDS: THIAMINE 200 MG/2 ML INJ IVP SCH (08:10)
[2022-07-29] MEDS: ACYCLOVIR INJ 800 MG in NA CHLORIDE 0.9% 100 ML IVPB SCH ×3 (08:10→22:22)
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
[2022-07-29] MEDS: ACETAMINOPHEN 325 MG TABLET PO PRN (13:33)
[2022-07-29] MEDS ORDERED: acetaZOLAMIDE 250 MG TAB PO SCH (14:00)
[2022-07-29] MEDS: acetaZOLAMIDE 250 MG TAB PO SCH (19:38)
[2022-07-30 05:10] LABS: Absolute Lymphocytes (CBC) 0.6 K/uL (0.7-4.9); Hematocrit 37.1 % (36.0-45.0); Lymphocytes % 5.7 % (15.3-44.8); MCV 95.5 fL (80-100); MPV 9.2 fL (7.6-11.3); RBC Red Blood Cell Count 3.88 M/uL (3.86-4.86)
[2022-07-30 05:15] VITALS: BMI 31.1
[2022-07-30 05:21] LABS: Potassium 3.5 mmol/L (3.5-5.1)
[2022-07-30] MEDS: ACYCLOVIR INJ 800 MG in NA CHLORIDE 0.9% 100 ML IVPB SCH ×3 (06:27→22:51)
[2022-07-30] MEDS: Ringers Lactate 1,000 ML IV SCH ×2 (09:00→15:19)
[2022-07-30] MEDS: ENOXAPARIN 40 MG/0.4 ML SQ SCH (09:32)
[2022-07-30] MEDS: acetaZOLAMIDE 250 MG TAB PO SCH ×2 (09:32→20:12)
[2022-07-30] MEDS: THIAMINE 200 MG/2 ML INJ IVP SCH (09:32)
[2022-07-30] MEDS: FOLIC ACID 1 MG in NA CHLORIDE 0.9% 50 ML IV SCH (09:33)
[2022-07-30] MEDS: METHYLPRED NA SUC 1,000 MG in NA CHLORIDE 0.9% 100 ML IV SCH (09:33)
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
--- NOTE | 2022-07-31 01:37 | P.PN ---
Subjective Date of Service: 07/30/22 patient's mental status continues to improve. Patient is clinically doing much better. She is more awake and alert. She is interacting more appropriately. She is concerned she may have used bath salts. She also feels that someone may have given her this. Review of Systems 10-point ROS is otherwise unremarkable Physical Examination - Vital Signs Temperature: 98.1 F Blood Pressure: 121/56 Pulse: 72 Respirations: 20 Pulse Ox (%): 91 - Physical Exam General: Alert, In no apparent distress, Oriented x3 HEENT: Atraumatic, PERRLA, EOMI Neck: Supple, JVD not distended Respiratory: Clear to auscultation bilaterally, Normal air movement Cardiovascular: Regular rate/rhythm, Normal S1 S2 Gastrointestinal: Normal bowel sounds, No tenderness Musculoskeletal: No tenderness Integumentary: No rashes Neurological: Normal speech, Normal tone, Normal affect Lymphatics: No axilla or inguinal lymphadenopathy - Studies Microbiology Data (last 24 hrs): 07/28/22 02:15 Cerebral Spinal Fluid Gram Stain - Final Medications List Reviewed: Yes Assessment & Plan - Problems (Diagnosis) (1) Altered mental status Current Visit: Yes Status: Acute (2) Polysubstance abuse Current Visit: Yes Status: Acute - Plan Plan: 1. Continue with gentle hydration 2. Continue with physical therapy 3. patient with concern for substance abuse. Will discuss with her a little bit more once her mentation improves 4. Gi DVT prophylaxis Discharge Plan: Home Plan to discharge in: Greater than 2 days - Advance Directives Does patient have a Living Will: No Does patient have a Durable POA for Healthcare: No - Code Status/Comfort Care Code Status Assessed: Yes Code Status: Full Code Physician Review: Patient Assessed, Agree with Above Assessment and Plan Critical Care: No Time Spent Managing PTS Care (In Minutes): 35
[2022-07-31] MEDS: Ringers Lactate 1,000 ML IV SCH (04:27)
[2022-07-31] MEDS: ACYCLOVIR INJ 800 MG in NA CHLORIDE 0.9% 100 ML IVPB SCH ×2 (06:25→15:13)
[2022-07-31] MEDS: THIAMINE 200 MG/2 ML INJ IVP SCH (09:47)
[2022-07-31] MEDS: acetaZOLAMIDE 250 MG TAB PO SCH ×2 (09:47→20:55)
[2022-07-31] MEDS: ENOXAPARIN 40 MG/0.4 ML SQ SCH (09:47)
[2022-07-31] MEDS: FOLIC ACID 1 MG in NA CHLORIDE 0.9% 50 ML IV SCH (09:53)
[2022-07-31] MEDS ORDERED: ONDANSETRON 4 MG/2 ML VIAL IV PRN (13:57)
[2022-07-31] MEDS: D5W 1,000 ML IV SCH (16:00)
[2022-07-31] MEDS: ACETAMINOPHEN 325 MG TABLET PO PRN (18:29)
[2022-07-31] MEDS ORDERED: ONDANSETRON 4 MG (ODT) TAB PO ONE (20:34)
[2022-07-31] MEDS ORDERED: POTASSIUM 25 MEQ EFFERV TAB PO ONE (21:00)
[2022-08-01] MEDS: ACETAMINOPHEN 325 MG TABLET PO PRN ×2 (00:17→13:25)
[2022-08-01] MEDS ORDERED: TRAMADOL HCL 50 MG TAB PO ONE (03:47)
[2022-08-01] MEDS ORDERED: HYDROCODONE/APAP 5/325 MG TAB PO ONE (04:09)
[2022-08-01] MEDS: ONDANSETRON 4 MG (ODT) TAB PO PRN ×3 (05:14→18:06)
--- NOTE | 2022-08-01 05:45 | P.PN ---
Date of Service: 07/31/22 Subjective Patient has significantly improved clinically. Physical Examination - Vital Signs Reviewed - Physical Exam General: Alert, In no apparent distress, Oriented x3 Respiratory: Clear to auscultation bilaterally, Normal air movement Cardiovascular: Regular rate/rhythm, Normal S1 S2 Gastrointestinal: Normal bowel sounds, No tenderness Musculoskeletal: No tenderness Integumentary: No rashes Neurological: Normal speech, Normal tone, Normal affect Assessment & Plan - Problems (Diagnosis) (1) Altered mental status Current Visit: Yes Status: Acute (2) Polysubstance abuse Current Visit: Yes Status: Acute - Plan Continue with plan of care as mentioned below: 1. Plan Hep-Lock IV if nutritional status keeps improving 2. Continue with physical therapy 3. Patient with concern for substance abuse. Will discuss with her a little bit more once her mentation improves 4. GI/DVT prophylaxis
[2022-08-01] MEDS: D5W 1,000 ML IV SCH ×2 (05:59→23:20)
[2022-08-01] MEDS: THIAMINE 200 MG/2 ML INJ IVP SCH (09:31)
[2022-08-01] MEDS: acetaZOLAMIDE 250 MG TAB PO SCH ×2 (09:31→20:16)
[2022-08-01] MEDS: ENOXAPARIN 40 MG/0.4 ML SQ SCH (09:31)
[2022-08-01] MEDS: FOLIC ACID 1 MG in NA CHLORIDE 0.9% 50 ML IV SCH (09:31)
[2022-08-01 11:18] LABS: Absolute Lymphocytes (CBC) 1.5 K/uL (0.7-4.9); Lymphocytes % 17.2 % (15.3-44.8); MCV 95.1 fL (80-100); MPV 8.5 fL (7.6-11.3); RBC Red Blood Cell Count 4.21 M/uL (3.86-4.86)
[2022-08-01 11:47] LABS: Albumin 3.8 g/dL (3.4-5.0); Bilirubin Total 0.9 mg/dL (0.2-1.0)
[2022-08-01 11:49] LABS: Potassium 2.8 mmol/L (3.5-5.1)
[2022-08-01] MEDS ORDERED: POTASSIUM CL 40 MEQ in NA CHLORIDE 0.9% 500 ML IV SCH (13:00)
[2022-08-02] MEDS: ONDANSETRON 4 MG (ODT) TAB PO PRN ×2 (07:20→21:44)
[2022-08-02] MEDS: FOLIC ACID 1 MG in NA CHLORIDE 0.9% 50 ML IV SCH ×2 (09:00)
[2022-08-02] MEDS: THIAMINE 200 MG/2 ML INJ IVP SCH ×2 (09:00→09:36)
[2022-08-02] MEDS: ENOXAPARIN 40 MG/0.4 ML SQ SCH (09:35)
[2022-08-02] MEDS: acetaZOLAMIDE 250 MG TAB PO SCH ×2 (09:36→21:44)
[2022-08-02 15:26] LABS: Absolute Lymphocytes (CBC) 1.4 K/uL (0.7-4.9); Hematocrit 37.5 % (36.0-45.0); Lymphocytes % 19.8 % (15.3-44.8); MPV 8.6 fL (7.6-11.3); RBC Red Blood Cell Count 3.95 M/uL (3.86-4.86)
[2022-08-02 15:52] LABS: Albumin 3.6 g/dL (3.4-5.0); Bilirubin Direct 0.3 mg/dL (0-0.2); Bilirubin Total 1.2 mg/dL (0.2-1.0); Prealbumin 21.3 mg/dL (20-40); Protein, Total 6.5 g/dL (6.4-8.2)
[2022-08-02 16:14] LABS: Potassium 2.9 mmol/L (3.5-5.1)
[2022-08-03] MEDS: ACETAMINOPHEN 325 MG TABLET PO PRN ×2 (02:09→09:07)
[2022-08-03] MEDS: ONDANSETRON 4 MG (ODT) TAB PO PRN ×2 (02:44→09:12)
--- NOTE | 2022-08-03 05:41 | P.PN ---
Date of Service: 08/01/22 Subjective patient is doing well with no new complaints. Her family wants her to increase her nutritional status. She also is having some issues with her living arrangements. Will work on discharge planning at this time. Physical Examination - Vital Signs Reviewed - Physical Exam General: Alert, In no apparent distress, Oriented x3 Respiratory: Clear to auscultation bilaterally, Normal air movement Cardiovascular: Regular rate/rhythm, Normal S1 S2 Gastrointestinal: Normal bowel sounds, No tenderness Neurological: No focal deficits Assessment & Plan - Problems (Diagnosis) (1) Altered mental status Current Visit: Yes Status: Acute - Plan Continue with plan of care as mentioned below: 1. Hep-Lock IV 2. Continue with physical therapy 3. outpatient neurology follow-up
--- NOTE | 2022-08-03 05:42 | P.PN ---
Date of Service: 08/02/22 Subjective patient continues to improve. Spoke with patient regarding her arrangements at discharge. Anticipate discharge home in the morning. Family stated that she is not eating well and they did not feel she was ready to go home. Her nutritional lab data shows that her nutrition is adequate. Will have dietary consultation. Anticipate discharge in a.m.. Physical Examination - Vital Signs Reviewed - Physical Exam General: Alert, In no apparent distress, Oriented x3 Respiratory: Clear to auscultation bilaterally, Normal air movement Cardiovascular: Regular rate/rhythm, Normal S1 S2 Gastrointestinal: Normal bowel sounds, No tenderness Neurological: No focal deficits Assessment & Plan - Problems (Diagnosis) (1) Altered mental status Current Visit: Yes Status: Acute - Plan Continue with plan of care as mentioned below: 1. Hep-Lock IV 2. Continue with physical therapy 3. outpatient neurology follow-up 4. Dietary consultation
[2022-08-03] MEDS ORDERED: HYDROCODONE/APAP 10/325 TAB PO PRN (05:43)
[2022-08-03] MEDS ORDERED: DOCUSATE NA 100 MG CAP PO PRN (05:43)
[2022-08-03] MEDS ORDERED: predniSONE 20 MG TAB PO ONE (08:49)
[2022-08-03] MEDS ORDERED: POTASSIUM 25 MEQ EFFERV TAB PO ONE (08:50)
[2022-08-03] MEDS ORDERED: GABAPENTIN 300 MG CAP PO SCH (09:00)
[2022-08-03] MEDS ORDERED: FOLIC ACID 1 MG TABLET PO SCH (09:00)
[2022-08-03] MEDS ORDERED: CALCIUM CARB 500MG/VIT D 200 IU TAB PO SCH (09:00)
[2022-08-03] MEDS ORDERED: LAMOTRIGINE 250 MG PO SCH (09:00)
[2022-08-03] MEDS: FOLIC ACID 1 MG in NA CHLORIDE 0.9% 50 ML IV SCH (09:00)
[2022-08-03] MEDS: THIAMINE 200 MG/2 ML INJ IVP SCH (09:00)
[2022-08-03] MEDS ORDERED: METOPROLOL TAR 25 MG TAB PO SCH (09:00)
[2022-08-03] MEDS: ENOXAPARIN 40 MG/0.4 ML SQ SCH (09:08)
[2022-08-03] MEDS: acetaZOLAMIDE 250 MG TAB PO SCH (09:08)
[2022-08-03 09:20] VITALS: O2SAT 98
[2022-08-03 12:42] VITALS: BP 134/74; TEMP 98.9
--- NOTE | 2022-08-07 17:49 | EKG ---
Test Date: 2022-07-27 Test Time: 06:12:54 Cane Stripper: CHEN MEASUREMENT RESULTS: Intervals: Rate: 81 FL: 152 QRSD: 84 QT: 372 QTc: 432 [place]: P: 69 FL: 152 QRS: 71 T: 63 INTERPRETIVE STATEMENTS: Sinus rhythm with premature ventricular complexes or fusion complexes Otherwise normal ECG Compared to ECG 07/26/2022 19:26:22 Fusion complex(es) now present Ventricular premature complex(es) now present Sinus tachycardia no longer present Atrial abnormality no longer present T-wave abnormality no longer present Electronically Signed On 08-07-22 17:29:20 FURNITURE PAINTER by Bala Merino
--- NOTE | 2022-08-07 17:50 | EKG ---
Test Date: 2022-07-26 Test Time: 19:26:22 Computer Education Teacher: CHEN MEASUREMENT RESULTS: Intervals: Rate: 102 AZ: 144 QRSD: 84 QT: 360 QTc: 469 [place]: P: 78 AZ: 144 QRS: 77 T: 64 INTERPRETIVE STATEMENTS: Sinus tachycardia Biatrial enlargement Nonspecific T wave abnormality Abnormal ECG Compared to ECG 07/07/2022 13:53:41 Atrial abnormality now present T-wave abnormality now present Sinus rhythm no longer present Electronically Signed On 08-07-22 17:29:39 CHILD WELFARE WORKER by Bala Merino
== END 2022-08-03 13:54 | disposition home or self-care (01) | DRG 93 ==
LOC: ER 05:38 → ERHOLD 10:20 → 3RD-ICU 16:55 → OBSVTOIN 07-28 16:02 → 2ND 07-30 15:52
PROVIDERS: ADMIT Internal Medicine; ATTEND Hospitalist
PROC: 009U3ZX Drainage of Spinal Canal, Percutaneous Approach, Diagnostic (ICD-10-PCS; principal; 2022-07-28)
DX: G92.8 Other toxic encephalopathy (principal); E86.0 Dehydration; G90.A Postural orthostatic tachycardia syndrome [POTS]; F31.9 Bipolar disorder, unspecified; M06.9 Rheumatoid arthritis, unspecified; K21.9 Gastro-esophageal reflux disease without esophagitis; E66.9 Obesity, unspecified; G47.30 Sleep apnea, unspecified; F19.10 Other psychoactive substance abuse, uncomplicated; Z88.1 Allergy status to other antibiotic agents; Z78.1 Physical restraint status; Z88.8 Allergy status to other drugs, medicaments and biological substances; Z90.5 Acquired absence of kidney; Z90.49 Acquired absence of other specified parts of digestive tract; Z86.14 Personal history of Methicillin resistant Staphylococcus aureus infection; Z68.31 Body mass index [BMI] 31.0-31.9, adult; Z98.84 Bariatric surgery status; Z79.52 Long term (current) use of systemic steroids; Z86.711 Personal history of pulmonary embolism; Z79.899 Other long term (current) drug therapy; Z86.718 Personal history of other venous thrombosis and embolism; Z20.822 Contact with and (suspected) exposure to COVID-19
CPT/HCPCS: 36415; 70450; 71275; 72125; 80048; 80053; 80076; 80175; 80307; 81003; 82140; 82164; 82607; 82805; 82945; 83520; 83735; 83916; 84134; 84157; 84443; 84484; 84702; 85025; 85027; 86038; 86052; 86146; 86147; 86200; 86225; 86235; 86255; 86592; 86617; 86652; 86788; 86789; 87015; 87040; 87070; 87116; 87206; 87255; 87529; 87811; 88108; 88313; 89050; 93005; 93971; 96372; 97110; 97116; 97161; 97530; 99285; G0378; G0480; J0133; J1200; J1630; J1650; J2405; J2704; J2930; J3370; J3411; J3480; J3486; J7030; J7040; J7120; J7512; Q0162; Q9967

== ENCOUNTER 2024-04-29 08:40 | Emergency (ER) | payer OTHER ==
[2024-04-29] MEDS ORDERED: ONDANSETRON 4 MG/2 ML VIAL ONE (08:54)
[2024-04-29] MEDS ORDERED: NA CHLORIDE 0.9% 1,000 ML ONE (08:54)
[2024-04-29] MEDS ORDERED: HYDROMORPHONE HCL 1 MG/ML INJ ONE ×2 (08:54→10:17)
[2024-04-29 09:07] LABS: Absolute Basophils 0.1 K/uL (0-0.5); Absolute Lymphocytes (CBC) 0.9 K/uL (0.7-4.9); Absolute Monocytes 0.3 K/uL (0.1-1.3); Absolute Neutrophil 6.6 K/uL (1.8-8.0); Basophils % 0.7 % (0-1.3); Eosinophils % 0.2 % (0-4.4); Hematocrit 41.8 % (36.0-45.0); Lymphocytes % 10.9 % (15.3-44.8); MCH 33.1 pg (27.0-35.0); MCHC 33.6 g/dL (32.0-36.0); MCV 98.5 fL (80-100); MPV 7.3 fL (7.6-11.3); Monocytes % 3.3 % (3.3-12.3); Neutrophils % 84.9 % (41.7-73.7); Platelets 245 thou/uL (152-406); RBC Red Blood Cell Count 4.24 M/uL (3.86-4.86); Red Cell Distribution Width 13.5 % (12.1-15.2)
--- NOTE | 2024-04-29 09:49 | RAD REPORT ---
EXAMINATION: CT ABDOMEN AND PELVIS WITH CONTRAST CLINICAL INDICATION: Female, 43 years old.ABD PAIN TECHNIQUE: CT abdomen and pelvis was performed, after the administration of IV contrast, as per depar tment protocol. Axial, sagittal and coronal reconstructions were obtained. One or more of the following dose reduction techniques were used: Automated exposure control, adjustment of the mA and/o r kV according to patient size, and/or iterative reconstruction. Unless otherwise specified, incidental findings do not require dedicated imaging follow-up. [id number]. COMPARISON: 03/01/2019, 06/27/2022 FINDINGS: LOWER CHEST: The visualized lung bases are clear. LIVER: Periportal edema. No suspicious masses are identified. Hepatomegaly. GALLBLADDER/BILE DUCT: Surgically absent? PANCREAS: No significant abnormality. SPLEEN: Normal size. No focal lesion. ADRENALS: Normal; no mass. KIDNEYS AND URETERS: Absent right kidney. Moderate left-sided hydronephrosis. Left nephrolithiasis is present. 5 mm stone left distal ureter. GASTROINTESTINAL TRACT: Partial gastrectomy. PERITONEUM: No ascites. LYMPH NODES: No lymphadenopathy. ABDOMINAL AORTA AND OTHER VESSELS: Normal caliber aorta and IVC. URINARY BLADDER: Decompressed, not well evaluated. Trace gas is present. REPRODUCTIVE ORGANS: IUD. MUSCULOSKELETAL: No acute or suspicious osseous abnormality. ADDITIONAL FINDINGS: None. IMPRESSION: Moderate left-sided hydroureteronephrosis secondary to a 5 mm stone in the left distal ureter. Absent right kidney.
[2024-04-29 10:14] LABS: Albumin 4.1 g/dL (3.4-5.0); Albumin/Globulin Ratio 1.5 (1.1-1.8); Anion Gap 7.9 mEq/L (5.0-15.0); Bilirubin Total 0.7 mg/dL (0.2-1.0); Globulin 2.7 g/dL (2.3-3.5); Potassium 3.9 mEq/L (3.5-5.1); Protein, Total 6.8 g/dL (6.4-8.2)
--- NOTE | 2024-04-29 10:54 | EDPHYS ---
Physician Documentation [facility] Name: Emilia Lora Age: 43 yrs Sex: Female : 1980 Arrival Date: 04/29/2024 Time: 08:40 Bed 14 Private MD: ED Physician Sabino Omalley HPI: 04/29 08:59 This 43 yrs old Female presents to ER via EMS with complaints of Abdominal sp3 Pain. 08:59 43-year-old female with history of rheumatoid arthritis, left nephrectomy secondary to sp3 urinary reflux and recurrent infections as a child, endometriosis, prior DVT/PE now presents to the ED with chief complaint diffuse abdominal pain, vomiting, diarrhea for the last 48 hours worse over the last 12. She denies any blood or mucus in her emesis. She states she also is now having vaginal bleeding on her cycle. No blood or mucus in her stool. She denies fever, chest pain, shortness of breath, rash, known sick contacts, potential bad food, travel history, or any other signs or symptoms on ROS at this time.. TEST BORER: 08:47 LMP N/A - , Not mb9 Historical: - Allergies: 08:44 Celebrex; mb9 08:44 CEPHALOSPORINS; mb9 08:44 Cipro; mb9 08:44 Keflex; mb9 08:44 Levofloxacin; mb9 08:44 Sulfa (Sulfonamide Antibiotics); mb9 08:44 Sulfasalazine; mb9 - Home Meds: 10:26 midodrine 2.5 mg Oral tab 2 tabs twice a day [Active]; mb9 - PMHx: 08:44 DVT; hypermobility sydrome; PE; Rheumatoid Arthritis; rib cage cartlige swelling; Sleep mb9 Apnea; ulcerative colitis; Endometriosis of vagina; ovarian cysts; - PSHx: 08:44 2 ankle SX; Adenoid excision; Cholecystectomy; D\T\C; Endometrial ablasion; gastric mb9 sleeve; R nephrectomy; septoplasty; - Immunization history:: Adult Immunizations up to date. - Infectious Disease History:: Denies. - Social history:: Smoking status: Patient denies any tobacco usage or history of. ROS: 09:00 Constitutional: Negative for fever, chills, and weight loss, Eyes: Negative for injury, sp3 pain, redness, and discharge, Neck: Negative for injury, pain, and swelling, Cardiovascular: Negative for chest pain, palpitations, and edema, Respiratory: Negative for shortness of breath, cough, wheezing, and pleuritic chest pain, Back: Negative for injury and pain, MS/Extremity: Negative for injury and deformity, Skin: Negative for injury, rash, and discoloration, Neuro: Negative for headache, weakness, numbness, tingling, and seizure, Psych: Negative for depression, anxiety, suicide ideation, homicidal ideation, and hallucinations, Allergy/Immunology: Negative for hives, rash, and allergies, Endocrine: Negative for neck swelling, polydipsia, polyuria, polyphagia, and marked weight changes, Hematologic/Lymphatic: Negative for swollen nodes, abnormal bleeding, and unusual bruising, 09:00 All other systems are negative, Exam: 09:00 Constitutional: This is a well developed, well nourished patient who is awake, alert, sp3 and in no acute distress. Head/Face: Normocephalic, atraumatic. Eyes: Pupils equal round and reactive to light, extra-ocular motions intact. Lids and lashes normal. Conjunctiva and sclera are non-icteric and not injected. Cornea within normal limits. Periorbital areas with no swelling, redness, or edema. Neck: Trachea midline, no thyromegaly or masses palpated, and no cervical lymphadenopathy. Supple, full range of motion without nuchal rigidity, or vertebral point tenderness. No Meningismus. Chest/axilla: Normal chest wall appearance and motion. Nontender with no deformity. No lesions are appreciated. Cardiovascular: Regular rate and rhythm with a normal S1 and S2. No gallops, murmurs, or rubs. Normal PMI, no JVD. No pulse deficits. Respiratory: Lungs have equal breath sounds bilaterally, clear to auscultation and percussion. No rales, rhonchi or wheezes noted. No increased work of breathing, no retractions or nasal flaring. Back: No spinal tenderness. No costovertebral tenderness. Full range of motion. Skin: Warm, dry with normal turgor. Normal color with no rashes, no lesions, and no evidence of cellulitis. MS/ Extremity: Pulses equal, no cyanosis. Neurovascular intact. Full, normal range of motion. Neuro: Awake and alert, GCS 15, oriented to person, place, time, and situation. Cranial nerves II-XII grossly intact. Motor strength 5/5 in all extremities. Sensory grossly intact. Cerebellar exam normal. Normal gait. Psych: Awake, alert, with orientation to person, place and time. Behavior, mood, and affect are within normal limits. 09:00 Abdomen/GI: Patient with diffuse abdominal pain to palpation without peritoneal signs, rebound or guarding. Abdomen is soft., Vital Signs: 08:42 BP 131 / 76; Pulse 63; Resp 18; Temp 97.7; Pulse Ox 100% ; Weight 74.84 kg; Height 5 mb9 ft. 9 in. ; Pain 10/10; 10:14 BP 128 / 74; Pulse 60; Resp 16; Pulse Ox 95% on R/A; mb9 12:08 BP 125 / 72; Pulse 69; Resp 16; Pulse Ox 100% on R/A; mb9 13:31 BP 122 / 72; Pulse 65; Resp 16; Pulse Ox 100% on R/A; mb9 08:42 Body Mass Index 24.37 (74.84 kg, 175.26 cm) mb9 08:42 Pain Scale: Adult mb9 MDM: 08:46 Medical Screening Exam initiated sp3 09:03 Data reviewed: vital signs, nurses notes, lab test result(s), radiologic studies. ED sp3 course: 43-year-old female with extensive PMH above now with abdominal pain and GI symptoms. Differential diagnosis includes foodborne illness, pathology including UTI/pyelonephritis spectrum and/or kidney stone, other surgical pathology, viral illness, among others. I am not highly suspicious of CONCRETE STONE FINISHER or vascular pathology. Workup will include CT scan of the abdomen pelvis, laboratory values, UA and general supportive care with IV fluids and pain and nausea medication.. 10:36 ED course: Patient has 5 mm distal left ureteral stone with creatinine 1.6 and moderate sp3 hydronephrosis in the setting of single kidney. [place] [facility] [place] and probable stent placement.. 12:03 ED course: Patient accepted at [facility] with auto urology consult.. sp3 04/29 08:51 Order name: CBC with Diff; Complete Time: 09:54 sp3 04/29 08:51 Order name: CMP; Complete Time: 10:23 sp3 04/29 08:51 Order name: Lipase; Complete Time: 10:23 sp3 04/29 08:51 Order name: Lactate w/ 2H reflex if indic.; Complete Time: 09:54 sp3 04/29 08:51 Order name: CT Abd/Pelvis - IV Contrast Only; Complete Time: 09:54 sp3 04/29 08:51 Order name: IV Saline Lock; Complete Time: 08:52 sp3 04/29 08:51 Order name: Labs collected and sent; Complete Time: 08:52 sp3 04/29 09:12 Order name: Labs - recollect needed: recollect green top; Complete Time: 09:49 bd 04/29 12:08 Order name: Labs - recollect needed: collect more urine if possible; Complete Time: bd 12:10 Administered Medications: 09:06 Drug: Ondansetron IVP 4 mg IVP once; over 2 minutes Route: IVP; Site: right antecubital;mb9 10:14 Follow up: Response: No adverse reaction mb9 09:06 Drug: NS 0.9% IV 1000 ml IV at 1 bolus Per protocol; to be given as a bolus over 60 mb9 minutes Route: IV; Rate: 1 bolus; Site: right antecubital; 10:14 Follow up: Response: No adverse reaction; IV Status: Completed infusion mb9 09:07 Drug: HYDROmorphone IVP 1 mg IVP once Route: IVP; Site: right antecubital; mb9 10:14 Follow up: Response: Pain is unchanged, physician notified mb9 10:20 Drug: HYDROmorphone IVP 1 mg IVP once Route: IVP; Site: right antecubital; mb9 10:42 Follow up: Response: No adverse reaction mb9 12:08 Drug: HYDROmorphone IVP 0.5 mg IVP once Route: IVP; Site: right antecubital; mb9 13:32 Follow up: Response: No adverse reaction mb9 Disposition Summary: 04/29/24 10:53 Transfer Ordered Notes: Transfer Location: [facility] sp3 Reason: Higher level of care sp3 Condition: Stable sp3 Problem: an acute exacerbation sp3 Symptoms: have worsened sp3 Accepting Physician: [facility](04/29/24 13:33) mb9 Diagnosis - Ureteral kidney stone, hydronephrosis, single kidney sp3 Forms: - Medication Reconciliation Form sp3 - SBAR form sp3 Signatures: Dispatcher [employer] Zulay Wolf Setul, MD MD sp3 Yecenia Garcia RN RN mb9 Corrections: (The following items were deleted from the chart) 13:33 10:53 TBD Urology sp3 mb9
--- NOTE | 2024-04-29 10:54 | ER ---
Nurse's Notes [facility] Name: Emilia Lora Age: 43 yrs Sex: Female : 1980 Arrival Date: 04/29/2024 Time: 08:40 Bed 14 Private MD: Diagnosis: Ureteral kidney stone, hydronephrosis, single kidney Presentation: 04/29 08:42 Chief complaint: EMS states: "toned out for left sided abdominal pain that started mb9 around 4 am today. Pt also states she just started having bright red vaginal bleeding and difficulty urinating.". Coronavirus screen: Vaccine status: Patient reports receiving the 2nd dose of the covid vaccine. Ebola Screen: No symptoms or risks identified at this time. Initial Sepsis Screen: Does the patient meet any 2 criteria? No. Patient's initial sepsis screen is negative. Does the patient have a suspected source of infection? No. Patient's initial sepsis screen is negative. Risk Assessment: Do you want to hurt yourself or someone else? Patient reports no desire to harm self or others. Onset of symptoms was April 29, 2024. 08:42 Acuity: VINITA 3 mb9 08:42 Method Of Arrival: EMS: [facility] mb9 Triage Assessment: 08:45 General: Appears uncomfortable, Behavior is anxious, crying. Pain: Complains of pain in mb9 abdomen Pain radiates to LLQ Pain currently is 10 out of 10 on a pain scale. Quality of pain is described as throbbing, Pain began suddenly, Is continuous. EENT: No signs and/or symptoms were reported regarding the EENT system. Neuro: Mendez Agitation-Sedation Scale (RASS): 0 - Alert and Calm Level of Consciousness is awake, alert, obeys commands, Oriented to person, place, time, situation, Appropriate for age. Cardiovascular: Patient's skin is warm and dry. Respiratory: Airway is patent Respiratory effort is even, unlabored, Respiratory pattern is regular, symmetrical, Breath sounds are clear bilaterally. GI: Abdomen is flat, non-distended, Bowel sounds present X 4 quads. Abd is soft Abdomen is tender to palpation X 4 quads. Reports nausea, vomiting. : Reports vaginal bleeding that is bright red, light flow. : Reports dysuria. Derm: Skin is pink, warm \\T\\ dry. Musculoskeletal: Range of motion: intact in all extremities. 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:47 LMP N/A - , Not mb9 Historical: - Allergies: 08:44 Celebrex; mb9 08:44 CEPHALOSPORINS; mb9 08:44 Cipro; mb9 08:44 Keflex; mb9 08:44 Levofloxacin; mb9 08:44 Sulfa (Sulfonamide Antibiotics); mb9 08:44 Sulfasalazine; mb9 - Home Meds: 10:26 midodrine 2.5 mg Oral tab 2 tabs twice a day [Active]; mb9 - PMHx: 08:44 DVT; hypermobility sydrome; PE; Rheumatoid Arthritis; rib cage cartlige swelling; Sleep mb9 Apnea; ulcerative colitis; Endometriosis of vagina; ovarian cysts; - PSHx: 08:44 2 ankle SX; Adenoid excision; Cholecystectomy; D\\T\\C; Endometrial ablasion; gastric mb9 sleeve; R nephrectomy; septoplasty; - Immunization history:: Adult Immunizations up to date. - Infectious Disease History:: Denies. - Social history:: Smoking status: Patient denies any tobacco usage or history of. Screenin:46 [facility] ED Fall Risk Assessment (Adult) History of falling in the last 3 months, mb9 including since admission No falls in past 3 months (0 pts) Confusion or Disorientation No (0 pts) Intoxicated or Sedated No (0 pts) Impaired Gait No (0 pts) Mobility Assist Device Used No (0 pt) Altered Elimination No (0 pt) Score/Fall Risk Level 0 - 2 = Low Risk Oriented to surroundings, Maintained a safe environment, Educated pt \\T\\ family on fall prevention, incl call for assistance when getting out of bed. Abuse screen: Denies threats or abuse. Nutritional screening: No deficits noted. Tuberculosis screening: No symptoms or risk factors identified. Assessment: 08:46 Reassessment: see triage assessment. mb9 10:42 Reassessment: No changes from previously documented assessment. Patient and/or family mb9 updated on plan of care and expected duration. Pain level reassessed. Patient is alert, oriented x 3, equal unlabored respirations, skin warm/dry/pink. 13:32 Reassessment: Report given to EMS. mb9 Vital Signs: 08:42 BP 131 / 76; Pulse 63; Resp 18; Temp 97.7; Pulse Ox 100% ; Weight 74.84 kg; Height 5 mb9 ft. 9 in. ; Pain 10/10; 10:14 BP 128 / 74; Pulse 60; Resp 16; Pulse Ox 95% on R/A; mb9 12:08 BP 125 / 72; Pulse 69; Resp 16; Pulse Ox 100% on R/A; mb9 13:31 BP 122 / 72; Pulse 65; Resp 16; Pulse Ox 100% on R/A; mb9 08:42 Body Mass Index 24.37 (74.84 kg, 175.26 cm) mb9 08:42 Pain Scale: Adult mb9 ED Course: 08:42 Patient arrived in ED. mb9 08:42 Arm band placed on. mb9 08:44 Triage completed. mb9 08:45 Sabino Omalley MD is Attending Physician. sp3 08:46 Placed in gown. Bed in low position. Call light in reach. Side rails up X 1. Provided mb9 Education on: press call light if needing anything. Client placed on continuous cardiac and pulse oximetry monitoring. NIBP monitoring applied. Door closed. Noise minimized. Warm blanket given. Pillow given. 08:47 Yecenia Garcia, MITALI is Primary Nurse. mb9 08:48 Initial lab(s) drawn, by me, sent to lab. Inserted saline lock: 20 gauge in right 9 antecubital area, using aseptic technique. Blood collected. Flushed with 10 mL NS. 08:51 No provider procedures requiring assistance completed. mb9 09:11 Test, Urine Sent. mb9 09:11 Urinalysis w/ reflexes Sent. mb9 09:38 CT Abd/Pelvis - IV Contrast Only In Process Unspecified. EDMS 09:44 Patient requests pain medication. mb9 10:14 Patient requests pain medication. mb9 10:42 Patient transferred, IV remains in place. mb9 10:53 initiated transfer to [facility]. bd 12:03 Patient requests food. Patient requests liquids. Patient requests pain medication. mb9 Administered Medications: 09:06 Drug: Ondansetron IVP 4 mg IVP once; over 2 minutes Route: IVP; Site: right antecubital;mb9 10:14 Follow up: Response: No adverse reaction mb9 09:06 Drug: NS 0.9% IV 1000 ml IV at 1 bolus Per protocol; to be given as a bolus over 60 mb9 minutes Route: IV; Rate: 1 bolus; Site: right antecubital; 10:14 Follow up: Response: No adverse reaction; IV Status: Completed infusion mb9 09:07 Drug: HYDROmorphone IVP 1 mg IVP once Route: IVP; Site: right antecubital; mb9 10:14 Follow up: Response: Pain is unchanged, physician notified mb9 10:20 Drug: HYDROmorphone IVP 1 mg IVP once Route: IVP; Site: right antecubital; mb9 10:42 Follow up: Response: No adverse reaction mb9 12:08 Drug: HYDROmorphone IVP 0.5 mg IVP once Route: IVP; Site: right antecubital; mb9 13:32 Follow up: Response: No adverse reaction mb9 Medication: 08:47 VIS not applicable for this client. mb9 Outcome: 10:53 ER care complete, transfer ordered by . darby 13:00 Transferred by ground EMS to [facility], Transfer form completed. mb9 X-rays sent w/ patient. Note: report given to transferring nurse MITALI West 13:00 Condition: stable 13:00 Instructed on the need for transfer, 13:33 Patient left the ED. mb9 Signatures: Dispatcher [employer] EDMS Zulay Cheema Setul, MD MD sp3 Yecenia Garcia RN RN mb9
[2024-04-29] MEDS ORDERED: HYDROMORPHONE HCL 0.5 MG/0.5 ML INJ ONE (12:05)
[2024-04-29 13:56] VITALS: TEMP 97.7
[2024-04-29 13:59] VITALS: O2SAT 100
[2024-04-29 14:00] VITALS: BP 122/72
== END 2024-04-29 13:33 | disposition short-term general hospital (02) ==
LOC: ER 08:40
DX: N13.2 Hydronephrosis with renal and ureteral calculous obstruction (principal); Z90.5 Acquired absence of kidney
CPT/HCPCS: 85025; 36415; 83605; 83690; 80053; 74177; Q9967; J1171 ×3; J2405; J7030